=== PATIENT | male | born 1985 | race African-American/Black ===

== ENCOUNTER 2023-01-10 19:22 | Inpatient (IN) | payer OTHER ==
[2023-01-10] MEDS ORDERED: ONDANSETRON 4 MG/2 ML VIAL IV PRN (20:01)
--- NOTE | 2023-01-10 20:16 | P.HP ---
Certification for Inpatient Patient admitted to: Inpatient With expected LOS: >2 Midnights Patient will require the following post-hospital care: None Practitioner: I am a practitioner with admitting privileges, knowledge of patient current condition, hospital course, and medical plan of care. Services: Services provided to patient in accordance with Admission requirements found in Title 42 Section 412.3 of the Code of Federal Regulations Patient History Date of Service: 01/10/23 Reason for admission: Sacral osteomyelitis/ulceration History of Present Illness: 37-year-old male with history of paraplegia secondary to ruptured abdominal aortic aneurysm 2019, CKD, hypertension, COPD who was admitted to [facility] for sacral decubitus ulceration, he was found to have suspected sacral osteomyelitis. Transfer was initiated to our facility for higher level of care. He has admitted here with plans for debridement tomorrow morning and ID consu lt. He has been on meropenem at [facility], he was admitted on 01/09/2023. - Past Medical/Surgical History -: Ruptured aortic aneurysm 2019 resulting in paraplegia -: CKD -: Hypertension -: COPD -: Cholecystectomy -: Aortic repair/stent Psychosocial/ Personal History: Patient is a resident of [facility] currently - Family History Family History: Reviewed- Non-Contributory - Social History Smoking Status: Never smoker Alcohol use: No CD- Drugs: No Caffeine use: Yes Place of Residence: Home Review of Systems Unremarkable Physical Examination - Physical Exam General: Alert, In no apparent distress, Oriented x3 HEENT: Atraumatic, PERRLA, Mucous membr. moist/pink, EOMI, Sclerae nonicteric Neck: Supple, 2+ carotid pulse no bruit, No LAD, Without JVD or thyroid abnormality Respiratory: Clear to auscultation bilaterally, Normal air movement Cardiovascular: No edema, Regular rate/rhythm, Normal S1 S2 Capillary refill: <2 Seconds Gastrointestinal: Normal bowel sounds, No tenderness Musculoskeletal: No tenderness Integumentary: Pressure ulcer (Sacral decubitus ulcerationunstageable, left gluteal pressure ulcerunstageable) Neurological: Normal gait, Normal speech, Normal strength at 5/5 x4 extr, Normal tone, Normal affect Assessment and Plan - Plan Assessment: Sacral and left gluteal decubitus ulcerations with suspected sacral osteomyelitis History of ruptured aortic aneurysm resulting in [id number] Hypertension COPD Plan: Sacral and left gluteal decubitus ulcerations with suspected sacral osteomyelitis Surgery, ID consults. N.p.o. after midnight in anticipation of debridement. Continue meropenem started on 01/09 Wound culture was growing gram-negative rods per notes at outside hospital. Wound healing consult History of ruptured aortic aneurysm resulting in [id number] Noted, at baseline Hypertension COPD Continue home medications DVT PPX: SCD Code status: Full Discharge Plan: Home Plan to discharge in: Greater than 2 days - Advance Directives Does patient have a Living Will: No Does patient have a Durable POA for Healthcare: No - Code Status/Comfort Care Code Status Assessed: Yes (Full code) Critical Care: No Time Spent Managing Pts Care (In Minutes): 55
--- OUTSIDE RECORDS SUMMARY | 2023-01-10 20:20 | XMS REPORT | Continuity of Care Document ---
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 tablet 3-24 tablet by ity o f 08:41: mouth at [place] [address] bedtime as Medical needed for Branch Insomnia. collagenase Yes Apply to Un rm 250 3-24 affected ity of unit/gram 08:41: area(s). [place]int[place] Medical Branch sennosides Yes 2{tbl} Take 2 Uni vers (SENNA 3-24 tablets by ity of ORAL) 08:41: mouth 2 [place] 54 (two) Medical times Branch daily. multivitami Yes 1{capsu Take 1 U nivers n capsule 3-24 le} capsule by ity of 08:41: mouth in [place] [address] the Medical morning. Branch carboxymeth Yes 1[drp] Place 1 U nivers ylcellulose 3-24 Drop in ity o f sodium 08:41: each eye 3 [place] ([facility]IFICIAL 54 (three) Medic al TEARS, [facility], times Branch OPHTHALMIC) daily. Both eyes acetaminoph Yes 650mg Take 2 Uni vers en 325 mg 3-24 tablets by ity of tablet 08:41: mouth [place] [address] every 8 Medical (eight) Branch hours as needed. aspirin 81 0 Yes 81mg Take 1 Unive rs mg EC 3-24 tablet by ity of tablet 08:41: mouth in [place] [address] the Medical morning. Branch ibuprofen 0 Yes 400mg Take 1 Unive rs 400 mg 3-24 tablet by ity of tablet 08:41: mouth [place] [address] every 8 Medical (eight) Branch hours. As needed Melatonin 5 Yes 2{tbl} Take 2 Un rm mg Cap 3-24 tablets by ity of 08:41: mouth at [place] [address] bedtime. Medical Branch SIMETHICONE 0 Yes 80mg Take 80 mg [facility] ORAL 3-24 by mouth ity of 08:41: every 8 [place] [address] (eight) Medical hours as Branch needed. polyethylen 0 Yes Take by Uni vers e glycol 3-24 mouth. ity of 3350 08:41: [place] (MIRALAX 54 Medical ORAL) Branch zolpidem 5 0 Yes 5mg Take 1 Unive rs mg tablet 3-24 tablet by ity o f 08:41: mouth at [place] [address] bedtime as Medical needed for Branch Insomnia. collagenase Yes Apply to Un rm 250 3-24 affected ity of unit/gram 08:41: area(s). [facility] s ointment 54 Medical Branch sennosides Yes 2{tbl} Take 2 Uni vers (SENNA 3-24 tablets by ity of ORAL) 08:41: mouth 2 [place] 54 (two) Medical times Branch daily. multivitami Yes 1{capsu Take 1 U nivers n capsule 3-24 le} capsule by ity of 08:41: mouth in [place] [address] the Medical morning. Branch carboxymeth Yes 1[drp] Place 1 U nivers ylcellulose 3-24 Drop in ity o f sodium 08:41: each eye 3 [place] ([facility] 54 (three) Medic al TEARS, [facility], times Branch OPHTHALMIC) daily. Both eyes acetaminoph Yes 650mg Take 2 Uni vers en 325 mg 3-24 tablets by ity of tablet 08:41: mouth [place] [address] every 8 Medical (eight) Branch hours as needed. aspirin 81 Yes 81mg Take 1 Unive rs mg EC 3-24 tablet by ity of tablet 08:41: mouth in [place] [address] the Medical morning. Branch ibuprofen Yes 400mg Take 1 Unive rs 400 mg 3-24 tablet by ity of tablet 08:41: mouth [place] [address] every 8 Medical (eight) Branch hours. As needed Melatonin 5 Yes 2{tbl} Take 2 Un rm mg Cap 3-24 tablets by ity of 08:41: mouth at [place] [address] bedtime. Medical Branch SIMETHICONE 0 Yes 80mg Take 80 mg [facility] ORAL 3-24 by mouth ity of 08:41: every 8 [place] [address] (eight) Medical hours as Branch needed. polyethylen Yes Take by Uni vers e glycol 3-24 mouth. ity of 3350 08:41: [place] (M[facility]ALAX 54 Medical ORAL) Branch zolpidem 5 0 Yes 5mg Take 1 Unive rs mg tablet 3-24 tablet by ity o f 08:41: mouth at [place] [address] bedtime as Medical needed for Branch Insomnia. collagenase Yes Apply to Un rm 250 3-24 affected ity of unit/gram 08:41: area(s). [facility] [place] [facility] ointment 54 Medical Branch sennosides Yes 2{tbl} Take 2 Uni vers (SENNA 3-24 tablets by ity of ORAL) 08:41: mouth 2 [place] 54 (two) Medical times Branch daily. multivitami Yes 1{capsu Take 1 U nivers n capsule 3-24 le} capsule by ity of 08:41: mouth in [place] [address] the Medical morning. Branch carboxymeth Yes 1[drp] Place 1 U nivers ylcellulose 3-24 Drop in ity o f sodium 08:41: each eye 3 [place] ([facility] 54 (three) Medic al TEARS, [facility], times Branch OPHTHALMIC) daily. Both eyes acetaminoph Yes 650mg Take 2 Uni vers en 325 mg 3-24 tablets by ity of tablet 08:41: mouth [place] [address] every 8 Medical (eight) Branch hours as needed. aspirin 81 Yes 81mg Take 1 Unive rs mg EC 3-24 tablet by ity of tablet 08:41: mouth in [place] [address] the Medical morning. Branch ibuprofen Yes 400mg Take 1 Unive rs 400 mg 3-24 tablet by ity of tablet 08:41: mouth [place] [address] every 8 Medical (eight) Branch hours. As needed Melatonin 5 Yes 2{tbl} Take 2 Un rm mg Cap 3-24 tablets by ity of 08:41: mouth at [place] [address] bedtime. Medical Branch SIMETHICONE Yes 80mg Take 80 mg [facility] ORAL 3-24 by mouth ity of 08:41: every 8 [place] [address] (eight) Medical hours as Branch needed. polyethylen Yes Take by Uni vers e glycol 3-24 mouth. ity of 3350 08:41: [place] (MIRALAX 54 Medical ORAL) Branch zolpidem 5 Yes 5mg Take 1 Unive rs mg tablet 3-24 tablet by ity o f 08:41: mouth at [place] 54 bedtime as Medical needed for Branch Insomnia. collagenase Yes Apply to Un rm 250 3-24 affected ity of unit/gram 08:41: area(s). [facility] s ointment 54 Medical Branch sennosides Yes 2{tbl} Take 2 Uni vers (SENNA 3-24 tablets by ity of ORAL) 08:41: mouth 2 [place] 54 (two) Medical times Branch daily. multivitami Yes 1{capsu Take 1 U nivers n capsule 3-24 le} capsule by ity of 08:41: mouth in [place] 54 the Medical morning. Branch carboxymeth Yes 1[drp] Place 1 U nivers ylcellulose 3-24 Drop in ity o f sodium 08:41: each eye 3 [place] ([facility]IAL 54 (three) Medic al TEARS, [facility], times Branch OPHTHALMIC) daily. Both eyes acetaminoph Yes 650mg Take 2 Uni vers en 325 mg 3-24 tablets by ity of tablet 08:41: mouth [place] [address] every 8 Medical (eight) Branch hours as needed. aspirin 81 0 Yes 81mg Take 1 Unive rs mg EC 3-24 tablet by ity of tablet 08:41: mouth in [place] [address] the Medical morning. Branch ibuprofen Yes 400mg Take 1 Unive rs 400 mg 3-24 tablet by ity of tablet 08:41: mouth [place] [address] every 8 Medical (eight) Branch hours. As needed Melatonin 5 Yes 2{tbl} Take 2 Un rm mg Cap 3-24 tablets by ity of 08:41: mouth at [place] [address] bedtime. Medical Branch SIMETHICONE Yes 80mg Take 80 mg Univers ORAL 3-24 by mouth ity of 08:41: every 8 [place] 54 (eight) Medical hours as Branch needed. polyethylen Yes Take by Uni vers e glycol 3-24 mouth. ity of 3350 08:41: [place] (MIRALAX 54 Medical ORAL) Branch zolpidem 5 0 Yes 5mg Take 1 Unive rs mg tablet 3-24 tablet by ity o f 08:41: mouth at [place] [address] bedtime as Medical needed for Branch Insomnia. collagenase Yes Apply to Un rm 250 3-24 affected ity of unit/gram 08:41: area(s). [place] ointment 54 Medical Branch sennosides Yes 2{tbl} Take 2 Uni vers (SENNA 3-24 tablets by ity of ORAL) 08:41: mouth 2 [place] 54 (two) Medical times Branch daily. multivitami Yes 1{capsu Take 1 U nivers n capsule 3-24 le} capsule by ity of 08:41: mouth in [place] [address] the Medical morning. Branch carboxymeth Yes 1[drp] Place 1 U nivers ylcellulose 3-24 Drop in ity o f sodium 08:41: each eye 3 [place] ([facility]IAL 54 (three) Medic al TEARS, [facility], times Branch OPHTHALMIC) daily. Both eyes acetaminoph Yes 650mg Take 2 Uni vers en 325 mg 3-24 tablets by ity of tablet 08:41: mouth [place] [address] every 8 Medical (eight) Branch hours as needed. aspirin 81 Yes 81mg Take 1 Unive rs mg EC 3-24 tablet by ity of tablet 08:41: mouth in [place] [address] the Medical morning. Branch ibuprofen Yes 400mg Take 1 Unive rs 400 mg 3-24 tablet by ity of tablet 08:41: mouth [place] [address] every 8 Medical (eight) Branch hours. As needed Melatonin 5 Yes 2{tbl} Take 2 Un rm mg Cap 3-24 tablets by ity of 08:41: mouth at [place] [address] bedtime. Medical Branch SIMETHICONE Yes 80mg Take 80 mg Univers ORAL 3-24 by mouth ity of 08:41: every 8 [place] [address] (eight) Medical hours as Branch needed. polyethylen Yes Take by Uni vers e glycol 3-24 mouth. ity of 3350 08:41: [place] (MIRALAX 54 Medical ORAL) Branch zolpidem 5 0 Yes 5mg Take 1 Unive rs mg tablet 3-24 tablet by ity o f 08:41: mouth at [place] [address] bedtime as Medical needed for Branch Insomnia. collagenase Yes Apply to Un rm 250 3-24 affected ity of unit/gram 08:41: area(s). [place] Medical Branch sennosides Yes 2{tbl} Take 2 Uni vers (SENNA 3-24 tablets by ity of ORAL) 08:41: mouth 2 [place] 54 (two) Medical times Branch daily. multivitami Yes 1{capsu Take 1 U nivers n capsule 3-24 le} capsule by ity of 08:41: mouth in [place] 54 the Medical morning. Branch carboxymeth Yes 1[drp] Place 1 U nivers ylcellulose 3-24 Drop in ity o f sodium 08:41: each eye 3 [place] (ARTIFICIAL 54 (three) Medic al TEARS, [facility], times Branch OPHTHALMIC) daily. Both eyes acetaminoph Yes 650mg Take 2 Uni vers en 325 mg 3-24 tablets by ity of tablet 08:41: mouth [place] every 8 Medical (eight) Branch hours as needed. aspirin 81 Yes 81mg Take 1 Unive rs mg EC 3-24 tablet by ity of tablet 08:41: mouth in [place] 54 the Medical morning. Branch ibuprofen Yes 400mg Take 1 Unive rs 400 mg 3-24 tablet by ity of tablet 08:41: mouth [place] [address] every 8 Medical (eight) Branch hours. As needed Melatonin 5 Yes 2{tbl} Take 2 Un rm mg Cap 3-24 tablets by ity of 08:41: mouth at [place] [address] bedtime. Medical Branch SIMETHICONE Yes 80mg Take 80 mg Univers ORAL 3-24 by mouth ity of 08:41: every 8 [place] [address] (eight) Medical hours as Branch needed. polyethylen Yes Take by Uni vers e glycol 3-24 mouth. ity of 3350 08:41: [place] (MIRALAX 54 Medical ORAL) Branch zolpidem 5 0 Yes 5mg Take 1 Unive rs mg tablet 3-24 tablet by ity o f 08:41: mouth at [place] [address] bedtime as Medical needed for Branch Insomnia. collagenase Yes Apply to Un rm 250 3-24 affected ity of unit/gram 08:41: area(s). [facility] s ointment 54 Medical Branch sennosides Yes 2{tbl} Take 2 Uni vers (SENNA 3-24 tablets by ity of ORAL) 08:41: mouth 2 [place] 54 (two) Medical times Branch daily. multivitami Yes 1{capsu Take 1 U nivers n capsule 3-24 le} capsule by ity of 08:41: mouth in [place] [address] the Medical morning. Branch carboxymeth Yes 1[drp] Place 1 U nivers ylcellulose 3-24 Drop in ity o f sodium 08:41: each eye 3 [place] (ARTIFICIAL 54 (three) Medic al TEARS, [facility], times Branch OPHTHALMIC) daily. Both eyes acetaminoph Yes 650mg Take 2 Uni vers en 325 mg 3-24 tablets by ity of tablet 08:41: mouth [place] [address] every 8 Medical (eight) Branch hours as needed. aspirin 81 0 Yes 81mg Take 1 Unive rs mg EC 3-24 tablet by ity of tablet 08:41: mouth in [place] [address] the Medical morning. Branch ibuprofen Yes 400mg Take 1 Unive rs 400 mg 3-24 tablet by ity of tablet 08:41: mouth [place] [address] every 8 Medical (eight) Branch hours. As needed Melatonin 5 Yes 2{tbl} Take 2 Un rm mg Cap 3-24 tablets by ity of 08:41: mouth at [place] [address] bedtime. Medical Branch SIMETHICONE Yes 80mg Take 80 mg Univers ORAL 3-24 by mouth ity of 08:41: every 8 [place] [address] (eight) Medical hours as Branch needed. polyethylen Yes Take by Uni vers e glycol 3-24 mouth. ity of 3350 08:41: [place] (MIRALAX 54 Medical ORAL) Branch zolpidem 5 0 Yes 5mg Take 1 Unive rs mg tablet 3-24 tablet by ity o f 08:41: mouth at [place] [address] bedtime as Medical needed for Branch Insomnia. collagenase Yes Apply to Un rm 250 3-24 affected ity of unit/gram 08:41: area(s). [place] Medical Branch sennosides Yes 2{tbl} Take 2 Uni vers (SENNA 3-24 tablets by ity of ORAL) 08:41: mouth 2 [place] [address] (two) Medical times Branch daily. multivitami 0 Yes 1{capsu Take 1 U nivers n capsule 3-24 le} capsule by ity of 08:41: mouth in [place] 54 the Medical morning. Branch carboxymeth Yes 1[drp] Place 1 U nivers ylcellulose 3-24 Drop in ity o f sodium 08:41: each eye 3 [place] ([facility]IAL 54 (three) Medic al TEARS, [facility], times Branch OPHTHALMIC) daily. Both eyes acetaminoph Yes 650mg Take 2 Uni vers en 325 mg 3-24 tablets by ity of tablet 08:41: mouth [place] 54 every 8 Medical (eight) Branch hours as needed. aspirin 81 Yes 81mg Take 1 Unive rs mg EC 3-24 tablet by ity of tablet 08:41: mouth in [place] 54 the Medical morning. Branch ibuprofen Yes 400mg Take 1 Unive rs 400 mg 3-24 tablet by ity of tablet 08:41: mouth [place] 54 every 8 Medical (eight) Branch hours. As needed Melatonin 5 Yes 2{tbl} Take 2 Un rm mg Cap 3-24 tablets by ity of 08:41: mouth at [place] [address] bedtime. Medical Branch SIMETHICONE Yes 80mg Take 80 mg Univers ORAL 3-24 by mouth ity of 08:41: every 8 [place] 54 (eight) Medical hours as Branch needed. polyethylen Yes Take by Uni vers e glycol 3-24 mouth. ity of 3350 08:41: [place] (MIRALAX 54 Medical ORAL) Branch zolpidem 5 Yes 5mg Take 1 Unive rs mg tablet 3-24 tablet by ity o f 08:41: mouth at [place] 54 bedtime as Medical needed for Branch Insomnia. collagenase Yes Apply to Un rm 250 3-24 affected ity of unit/gram 08:41: area(s). [place] Medical Branch sennosides Yes 2{tbl} Take 2 Uni vers (SENNA 3-17 tablets by ity of ORAL) 15:38: mouth 2 [place] 10 (two) Medical times Branch daily. multivitami Yes 1{capsu Take 1 U nivers n capsule 3-17 le} capsule by ity of 15:38: mouth [place] 10 daily. Medical Branch carboxymeth Yes 1[drp] Place 1 U nivers ylcellulose 3-17 Drop in ity o f sodium 15:38: each eye 3 [place] ([facility]IAL 10 (three) Medic al TEARS, [facility], times Branch OPHTHALMIC) daily. Both eyes acetaminoph Yes 650mg Take 650 U nivers en 3-17 mg by ity of (TYLENOL) 15:38: mouth [place] 325 mg 10 every 8 Medical tablet (eight) Branch hours as needed. aspirin 81 0 Yes 81mg Take 81 mg U nivers mg EC 3-17 by mouth ity of tablet 15:38: daily. [place] [address] Medical Branch ibuprofen Yes 400mg Take 400 Uni vers 400 mg 3-17 mg by ity of tablet 15:38: mouth [place] 10 every 8 Medical (eight) Branch hours. As needed Melatonin 5 Yes 2{tbl} Take 2 Un rm mg Cap 3-17 tablets by ity of 15:38: mouth at [place] 10 bedtime. Medical Branch SIMETHICONE Yes 80mg Take 80 mg Univers ORAL 3-17 by mouth ity of 15:38: every 8 [place] 10 (eight) Medical hours as Branch needed. polyethylen Yes Take by Uni vers e glycol 3-17 mouth. ity of 3350 15:38: [place] (MIRALAX 10 Medical ORAL) Branch sennosides Yes 2{tbl} Take 2 Uni vers (SENNA 3-17 tablets by ity of ORAL) 15:38: mouth 2 [place] 10 (two) Medical times Branch daily. multivitami Yes 1{capsu Take 1 U nivers n capsule 3-17 le} capsule by ity of 15:38: mouth [place] 10 daily. Medical Branch carboxymeth Yes 1[drp] Place 1 U nivers ylcellulose 3-17 Drop in ity o f sodium 15:38: each eye 3 [place] (ARTIFICIAL 10 (three) Medic al TEARS, C[facility], times Branch OPHTHALMIC) daily. Both eyes acetaminoph Yes 650mg Take 650 U nivers en 3-17 mg by ity of (TYLENOL) 15:38: mouth [place] 325 mg 10 every 8 Medical tablet (eight) Branch hours as needed. aspirin 81 0 Yes 81mg Take 81 mg U nivers mg EC 3-17 by mouth ity of tablet 15:38: daily. [place] 10 Medical Branch ibuprofen 0 Yes 400mg Take 400 Uni vers 400 mg 3-17 mg by ity of tablet 15:38: mouth [place] 10 every 8 Medical (eight) Branch hours. As needed Melatonin 5 Yes 2{tbl} Take 2 Un rm mg Cap 3-17 tablets by ity of 15:38: mouth at [place] 10 bedtime. Medical Branch SIMETHICONE Yes 80mg Take 80 mg Univers ORAL 3-17 by mouth ity of 15:38: every 8 [place] 10 (eight) Medical hours as Branch needed. polyethylen Yes Take by Uni vers e glycol 3-17 mouth. ity of 3350 15:38: [place] (MIRALAX 10 Medical ORAL) Branch sennosides Yes 2{tbl} Take 2 Uni vers (SENNA 3-17 tablets by ity of ORAL) 15:38: mouth 2 [place] 10 (two) Medical times Branch daily. multivitami Yes 1{capsu Take 1 U nivers n capsule 3-17 le} capsule by ity of 15:38: mouth [place] 10 daily. Medical Branch carboxymeth Yes 1[drp] Place 1 U nivers ylcellulose 3-17 Drop in ity o f sodium 15:38: each eye 3 [place] (ART[facility]IAL 10 (three) Medic al TEARS, C[facility], times Branch OPHTHALMIC) daily. Both eyes acetaminoph Yes 650mg Take 650 U nivers en 3-17 mg by ity of (TYLENOL) 15:38: mouth [place] 325 mg 10 every 8 Medical tablet (eight) Branch hours as needed. aspirin 81 0 Yes 81mg Take 81 mg U nivers mg EC 3-17 by mouth ity of tablet 15:38: daily. [place] 10 Medical Branch ibuprofen 0 Yes 400mg Take 400 Uni vers 400 mg 3-17 mg by ity of tablet 15:38: mouth [place] 10 every 8 Medical (eight) Branch hours. As needed Melatonin 5 Yes 2{tbl} Take 2 Un rm mg Cap 3-17 tablets by ity of 15:38: mouth at [place] 10 bedtime. Medical Branch SIMETHICONE Yes 80mg Take 80 mg Univers ORAL -17 by mouth ity of 15:38: every 8 [place] 10 (eight) Medical hours as Branch needed. polyethylen Yes Take by Uni vers e glycol -17 mouth. ity of 3350 15:38: [place] (MIRALAX 10 Medical ORAL) Branch magnesium 2022- No 2g 2 g, IV Univ ers sulfate in 09-09 Piggyback, it y of water 2 15:30: 16:47 Administer [place] as gram/50 mL 00 :00 over 60 Medica l (4 %) Minutes, Branch infusion 2 ONCE, 1 g dose, On Mon09/09/22 at 1030, Routine HYDROcodone 2022- No 2745 1{tbl} Take 1 U nivers -acetaminop 3-17 03-25 tablet by it y of hen (NORCO) 00:00: 04:59 mouth [place] 10-325 mg 00 :00 every 6 Medical tablet (six) Branch hours as needed for Pain (scale 7-10) for up to 7 days. Indication s: chronic pain HYDROcodone 2022-2022- No 2745 1{tbl} Take 1 U nivers -acetaminop 3-17 03-25 tablet by it y of hen (NORCO) 00:00: 04:59 mouth [place] 10-325 mg 00 :00 every 6 Medical tablet (six) Branch hours as needed for chronic pain (scale 7-10) HYDROcodone 2022-0 2022- No 2745 1{tbl} Take 1 U nivers -acetaminop 3-17 03-25 tablet by it y of hen (NORCO) 00:00: 04:59 mouth [place] 10-325 mg 00 :00 every 6 Medical tablet (six) Branch hours as needed for chronic pain (scale 7-10) HYDROcodone 2022-0 2022- No 2745 1{tbl} Take 1 U nivers -acetaminop 3-17 03-25 tablet by it y of hen (NORCO) 00:00: 04:59 mouth [place] 10-325 mg 00 :00 every 6 Medical tablet (six) Branch hours as needed for chronic pain (scale 7-10) HYDROcodone 2022-0 2022- No 2745 1{tbl} Take 1 U nivers -acetaminop 3-17 03-25 tablet by it y of hen ([employer]) 00:00: 04:59 mouth [place] 10-325 mg 00 :00 every 6 Medical tablet (six) Branch hours as needed for chronic pain (scale 7-10) HYDROcodone 2022-0 2022- No 2745 1{tbl} Take 1 U nivers -acetaminop 3-17 03-25 tablet by it y of hen ([employer]) 00:00: 04:59 mouth [place] 10-325 mg 00 :00 every 6 Medical tablet (six) Branch hours as needed for chronic pain (scale 7-10) HYDROcodone 2022-0 2022- No 2745 1{tbl} Take 1 U nivers -acetaminop 3-17 03-25 tablet by it y of hen ([employer]) 00:00: 04:59 mouth [place] 10-325 mg 00 :00 every 6 Medical tablet (six) Branch hours as needed for chronic pain (scale 7-10) HYDROcodone 2022-0 2022- No 2745 1{tbl} Take 1 U nivers -acetaminop 3-17 03-25 tablet by it y of hen ([employer]) 00:00: 04:59 mouth [place] 10-325 mg 00 :00 every 6 Medical tablet (six) Branch hours as needed for chronic pain (scale 7-10) HYDROcodone 2022-0 2022- No 2745 1{tbl} Take 1 U nivers -acetaminop 3-17 03-25 tablet by it y of hen ([employer]) 00:00: 04:59 mouth [place] 10-325 mg 00 :00 every 6 Medical tablet (six) Branch hours as needed for chronic pain (scale 7-10) lactated 2022- No 1000mL at 50 Unive rs ringers IV 09-08 mL/hr, ity of infusion 16:30: 16:29 1,000 mL, [place] as 1,000 mL 00 :00 IV Medical Infusion, Branch CONTINUOUS , Starting on [place] 09/08/22 at 1130, Until Mon09/09/22 at 1129, Routine magnesium 2022- No 2g 2 g, IV Univ ers sulfate in 09-08-16 Piggyback, it y of water 2 15:30: 17:33 Administer [place] as gram/50 mL 00 :00 over 60 Medica l (4 %) Minutes, Branch infusion 2 ONCE, 1 g dose, On Mon09/08/22 at 1030, Routine enoxaparin 2022-0 Yes 40mg 40 mg, Unive rs (LOVENOX) 3-16 Subcutaneo ity of injection 14:00: [place], DAILY, [place] 40 mg 00 First dose Medical (after [place] last modificati on) on Mon09/08/22 at 0900, Until Discontinu ed, Routine SERTraline 2022-0 Yes 100mg 100 mg, Uni vers (ZOLOFT) 3-16 Oral, QHS, ity o f tablet 100 02:00: First dose [place] mg 00 on [facility] 09/07/22 at Branch 2100, Until Discontinu ed, Routine melatonin 2022-0 Yes 3mg 3 mg, Univers (MELATIN) 3-16 Oral, QHS, ity of tablet 3 mg 02:00: First dose [place] 00 on [facility] 09/07/22 at Branch 2100, Until Discontinu ed terazosin 2022-0 Yes 1mg 1 mg, Univers (HYTRIN) 3-15 Oral, QPM, ity o f capsule 1 22:00: First dose [place] mg 00 on [facility] 09/07/22 at Branch 1700, Until Discontinu ed, Routine lactated 3-0 2023- No 1000mL at 100 [facility] ers ringers IV 09-07-16 mL/hr, ity of infusion 19:45: 16:22 1,000 mL, [place] as 1,000 mL 00 :38 IV Medical Infusion, Branch CONTINUOUS , Starting on Mon09/07/22 at 1445, Until [place] 09/08/22 at 1122, Routine morpHINE (4 2022-0 Yes 2mg 2 mg, Slow Univers mg/mL) 3-15 IV Push, ity of injection 2 18:42: Q4HPRN, [place] mg 48 Starting Medical on [facility] 09/07/22 at 1342, Until Discontinu ed, Routine, Pain (scale 7-10) polyethylen 2022-0 Yes 17g 17 g, Unive rs e glycol 3-15 Oral, ity of 3350 powder 14:00: DAILY, [place] 17 g 00 First dose Medical on Mon09/07/22 at 0900, Until Discontinu ed NIFEdipine 0 Yes 60mg 60 mg, Unive rs ER tablet 3-15 Oral, ity of 60 mg 14:00: DAILY, First dose Medical on Mon09/07/22 at 0900, Until Discontinu ed aspirin EC 2022-0 Yes 81mg 81 mg, Unive rs tablet 81 3-15 Oral, ity of mg 14:00: DAILY, First dose Medical on Mon09/07/22 at 0900, Until Discontinu ed, Routine enoxaparin 0 2022- No 30mg 30 mg, Univ ers (LOVENOX) 15 03-15 Subcutaneo ity of injection 14:00: 15:02 us, DAILY, [place] 30 mg 00 :47 First dose Medical on Mon09/07/22 at 0900, Until Discontinu ed, Routine sennosides 0 Yes 8.6mg 8.6 mg, Uni vers (SENOKOT) 3-15 Oral, BID, ity of tablet 8.6 13:00: First dose [place] mg 00 mon09/07/22 at Branch 0800, Until Discontinu ed labetaloL 0 Yes 400mg 400 mg, Univ ers (NORMODYNE) 3-15 Oral, ity of tablet 400 13:00: Q12H, mg First dose Medical on Mon09/07/22 at 0800, Until Discontinu ed, Routine gabapentin 0 Yes 300mg 300 mg, Uni vers (NEURONTIN) 3-15 Oral, TID, it y of capsule 300 13:00: First dose [place] mg 00 on Mon [facility] 09/07/22 at Branch 0800, Until Discontinu ed, Routine sodium 2022-0 202- No 150meq IV Univers bicarbonate 15 -15 Infusion, it y of 150 mEq in 12:00: 22:07 at 100 [place] D5W 1,000 00 :00 mL/hr, 150 Medi nic mL IV mEq, ONCE, Branch infusion 1 dose, On Mon09/07/22 at 0700, Routine ondansetron 2023-0 Yes 4mg 4 mg, Slow Univers (ZOFRAN 3-15 IV Push, ity of (PF)) 10:58: Q6HPRN, [place] injection 4 13 Starting Medi nic mg on Mon Branch 09/07/22 at 0558, Until Discontinu ed, Routine, Nausea and Vomiting (N/V) HYDROcodone 0 2022- No 1{tbl} 1 tablet, Univers -acetaminop 3-15 03-15 Oral, ity of hen (NORCO) 10:58: 18:43 Q6HPRN, [place] 10-325 mg 09 :15 Starting Medica l tablet 1 on Mon Branch tablet 09/07/22 at 0558, Until 09/07/22 at 1343, Routine, Pain (scale 7-10) acetaminoph Yes 650mg 650 mg, Un rm en 3-15 Oral, ity of (TYLENOL) 10:57: Q6HPRN, [place] tablet 650 57 Starting Medic al mg on Mon Branch 09/07/22 at 0557, Until Discontinu ed, Routine, Pain (scale 1-3) simethicone Yes 80mg 80 mg, Univ ers (GAS RELIEF 3-15 Oral, ity of (SIMETHICON 10:55: Q8HPRN, Ramon as E)) 54 Starting Medical chewable on Mon Branch tablet 80 09/07/22 at mg 0555, Until Discontinu ed, Gas nitrofurant 2021-06- No Complicated 100mg Q.5D Take 1 [facility] oin 0-06 10-19 UTI capsule by [facility] mono/m-[place] 00:00: 23:59 (urinary mouth 2 tals 00 :00 tract times (MACROBID) infection) daily for 100 mg 7 days capsule nitrofurant 2021-06- No Complicated 100mg Q.5D Take 1 [facility] oin 0-06 10-19 UTI capsule by [facility] mono/m-[place] 00:00: 23:59 (urinary mouth 2 tals 00 :00 tract times (MACROBID) infection) daily for 100 mg 7 days capsule cefpodoxime 2021-06- No Complicated 200mg Q.5D Take 1 [facility] (VANTIN) 0-04 10-14 UTI tablet by [facility] 200 mg 00:00: 23:59 (urinary mouth 2 tablet 00 :00 tract times infection) daily for 10 days cefpodoxime 2021-06- No Complicated 200mg Q.5D Take 1 [facility] (VANTIN) 0-04 10-14 UTI tablet by [facility] 200 mg 00:00: 23:59 (urinary mouth 2 tablet 00 :00 tract times infection) daily for 10 days ciprofloxac 2021- No 500mg Q.5D Take [address] [facility] [address] [facility] 03-04 [facility] (CIPRO) 500 00:00: 23:59 (500 mg Me dical MG tablet 00 :00 total) by Cente r mouth 2 (two) times daily for 5 days. ciprofloxac 2021- No 500mg Q.5D Take [address] [facility] HCl 03-04 [facility] (CIPRO) 500 00:00: 23:59 (500 mg Me dical MG tablet 00 :00 total) by Cente r mouth 2 (two) times daily for 5 days. ciprofloxac 2021- No 500mg Q.5D Take [address] [facility] HCl 03-04 [facility] (CIPRO) 500 00:00: 23:59 (500 mg Me dical MG tablet 00 :00 total) by Cente r mouth 2 (two) times daily for 5 days. ciprofloxac 2021- No 500mg Q.5D Take [address] [facility] HCl 03-04 [facility] (CIPRO) 500 00:00: 23:59 (500 mg Me dical MG tablet 00 :00 total) by Cente r mouth 2 (two) times daily for 5 days. ciprofloxac 0 2021- No 500mg Q.5D Take [address] [facility] HCl 03-04 [facility] (CIPRO) 500 00:00: 23:59 (500 mg Me dical MG tablet 00 :00 total) by Cente r mouth 2 (two) times daily for 5 days. ciprofloxac 2021- No 500mg Q.5D Take [address] [facility] HCl 03-04 tablet [facility] (CIPRO) 500 00:00: 23:59 (500 mg Me dical MG tablet 00 :00 total) by Cente r mouth 2 (two) times daily for 5 days. ciprofloxac 2021- No 500mg Q.5D Take [address] [facility] HCl 03-04 [facility] (CIPRO) 500 00:00: 23:59 (500 mg Me dical MG tablet 00 :00 total) by Cente r mouth 2 (two) times daily for 5 days. ciprofloxac 0 2021- No 500mg Q.5D Take [address] [facility] HCl 03-04 [facility] (CIPRO) 500 00:00: 23:59 (500 mg Me dical MG tablet 00 :00 total) by Cente r mouth 2 (two) times daily for 5 days. NIFEdipine Yes Hypertensio 60mg QD Take 1 [facility] (PROCARDIA 7-11 n, tablet by [facility] XL) 60 mg 00:00: unspecified mouth 24 hr 00 type daily extended release tablet metoprolol Yes Hypertensio 50mg Take 1 [facility] succinate 7-11 n, tablet by [facility]alt [facility] (TOPROL XL) 00:00: unspecified mouth 50 mg 00 type every 12 extended hours release tablet NIFEdipine 0 Yes Hypertensio 60mg QD Take 1 [facility] (PROCARDIA 7-11 n, tablet by [facility]al th XL) 60 mg 00:00: unspecified mouth 24 hr 00 type daily extended release tablet metoprolol 0 Yes Hypertensio 50mg Take 1 [facility] succinate 7-11 n, tablet by [facility]alt [facility] (TOPROL XL) 00:00: unspecified mouth 50 mg 00 type every 12 extended hours release tablet NIFEdipine 0 Yes Hypertensio 60mg QD Take 1 [facility] (PROCARDIA 7-11 n, tablet by [facility]al th XL) 60 mg 00:00: unspecified mouth 24 hr 00 type daily extended release tablet metoprolol 0 Yes Hypertensio 50mg Take 1 [facility] succinate 7-11 n, tablet by [facility]alt [facility] (TOPROL XL) 00:00: unspecified mouth 50 mg 00 type every 12 extended hours release tablet naproxen 0 2021- No Fall, 500mg Q.5D Take 1 [facility] is (NAPROSYN) 01-03 07-25 initial tablet by [facility] 500 mg 00:00: 23:59 encounter mouth 2 tablet 00 :00 times daily (with meals) for 14 days naproxen 2021-2021- No Fall, 500mg Q.5D Take 1 [facility] is (NAPROSYN) 01-03 initial tablet by Health 500 mg 00:00: 23:59 encounter mouth 2 tablet 00 :00 times daily (with meals) for 14 days naproxen 2021-2021- No Fall, 500mg Q.5D Take 1 [facility] is (NAPROSYN) 01-03 initial tablet by Health 500 mg 00:00: 23:59 encounter mouth 2 tablet 00 :00 times daily (with meals) for 14 days methocarbam 2021-2021- No Fall, 750mg Take 1 H arris oL 01-03 initial tablet by [facility] (ROBAXIN-75 00:00: 23:59 encounter mouth 3 0) 750 mg 00 :00 times tablet daily as needed for up to 7 days for Pain methocarbam 2021-2021- No Fall, 750mg Take 1 H arris oL 01-03 initial tablet by [facility] (ROBAXIN-75 00:00: 23:59 encounter mouth 3 0) 750 mg 00 :00 times tablet daily as needed for up to 7 days for Pain methocarbam 2021-2021- No Fall, 750mg Take 1 H arris oL 01-03 initial tablet by [facility] (ROBAXIN-75 00:00: 23:59 encounter mouth 3 0) 750 mg 00 :00 times tablet daily as needed for up to 7 days for Pain metoprolol 2021-2021- 25mg Q.5D Take [address] [facility] tartrate 2-28 05-29 tablet (25 [facility] (LOPRESSOR) 00:00: 23:59 mg total) Medical 25 MG 00 :00 by mouth 2 Center tablet (two) times daily for 90 days. metoprolol 2021-2021- 25mg Q.5D Take [address] [facility] tartrate 2-28 05-29 tablet (25 [facility] (LOPRESSOR) 00:00: 23:59 mg total) Medical 25 MG 00 :00 by mouth 2 Center tablet (two) times daily for 90 days. metoprolol 2021- 25mg Q.5D Take [address] [facility] tartrate 2-28 05-29 tablet (25 [facility] (LOPRESSOR) 00:00: 23:59 mg total) Medical 25 MG 00 :00 by mouth 2 Center tablet (two) times daily for 90 days. metoprolol 2021-0 2022- No 25mg Q.5D Take [address] [facility] tartrate 2-28 -29 tablet (25 [facility] (LOPRESSOR) 00:00: 23:59 mg total) Medical 25 MG 00 :00 by mouth 2 Center tablet (two) times daily for 90 days. metoprolol 2021-0 2022- No 25mg Q.5D Take [address] [facility] tartrate 2-28 -29 tablet (25 [facility] (LOPRESSOR) 00:00: 23:59 mg total) Medical 25 MG 00 :00 by mouth 2 Center tablet (two) times daily for 90 days. metoprolol 2021-0 2022- No 25mg Q.5D Take [address] [facility] tartrate 2-25 -28 tablet (25 [facility] (LOPRESSOR) 00:00: 00:00 mg total) Medical 25 MG 00 :00 by mouth 2 Center tablet (two) times daily for 90 days. metoprolol 2021-0 2- No 25mg Q.5D Take [address] [facility] tartrate 2-25 -28 tablet (25 [facility] (LOPRESSOR) 00:00: 00:00 mg total) Medical 25 MG 00 :00 by mouth 2 Center tablet (two) times daily for 90 days. metoprolol 2021-0 2022- No 25mg Q.5D Take [address] [facility] tartrate 2-25 -28 tablet (25 [facility] (LOPRESSOR) 00:00: 00:00 mg total) Medical 25 MG 00 :00 by mouth 2 Center tablet (two) times daily for 90 days. aspirin 81 2-0 Yes 81mg Take 81 mg U nivers mg EC 1-03 by mouth ity of tablet 17:13: daily. [address] Branch ibuprofen 2-0 Yes 400mg Take 400 Uni vers 400 mg 1-03 mg by ity of tablet 17:13: mouth [place] [address] every 8 Medical (eight) Branch hours. As needed aspirin 81 2022-0 Yes 81mg Take 81 mg U nivers mg EC 1-03 by mouth ity of tablet 17:13: daily. [address] Branch ibuprofen 2022-0 Yes 400mg Take 400 Uni vers 400 mg 1-03 mg by ity of tablet 17:13: mouth [place] 38 every 8 Medical (eight) Branch hours. As needed aspirin 81 0 Yes 81mg Take 81 mg U nivers mg EC 1-03 by mouth ity of tablet 17:13: daily. [address] Branch ibuprofen 0 Yes 400mg Take 400 Uni vers 400 mg 1-03 mg by ity of tablet 17:13: mouth [place] 38 every 8 Medical (eight) Branch hours. As needed aspirin 81 0 Yes 81mg Take 81 mg U nivers mg EC 1-03 by mouth ity of tablet 17:13: daily. [place] [address] Medical Branch ibuprofen 0 Yes 400mg Take 400 Uni vers 400 mg 1-03 mg by ity of tablet 17:13: mouth [place] 38 every 8 Medical (eight) Branch hours. As needed aspirin 81 0 Yes 81mg Take 81 mg U nivers mg EC 1-03 by mouth ity of tablet 17:13: daily. [place] [address] Medical Branch ibuprofen Yes 400mg Take 400 Uni vers 400 mg 1-03 mg by ity of tablet 17:13: mouth [place] 38 every 8 Medical (eight) Branch hours. As needed sennosides Yes 2{tbl} Take 2 Uni vers (SENNA 1-03 tablets by ity of ORAL) 17:13: mouth 2 [place] 37 (two) Medical times Branch daily. multivitami Yes 1{capsu Take 1 U nivers n capsule 1-03 le} capsule by ity of 17:13: mouth [place] 37 daily. Medical Branch carboxymeth Yes 1[drp] Place 1 U nivers ylcellulose 1-03 Drop in ity o f sodium 17:13: each eye 3 [place] (ARTIFICIAL 37 (three) Medic al TEARS, [facility], times Branch OPHTHALMIC) daily. Both eyes acetaminoph Yes 650mg Take 650 U nivers en 1-03 mg by ity of (TYLENOL) 17:13: mouth [place] 325 mg 37 every 8 Medical tablet (eight) Branch hours as needed. Melatonin 5 Yes 2{tbl} Take 2 Un rm mg Cap 1-03 tablets by ity of 17:13: mouth at [place] 37 bedtime. Medical Branch SIMETHICONE Yes 80mg Take 80 mg [facility] ORAL 1-03 by mouth ity of 17:13: every 8 [place] 37 (eight) Medical hours as Branch needed. polyethylen Yes Take by Uni vers e glycol 1-03 mouth. ity of 3350 17:13: [place] (MIRALAX 37 Medical ORAL) Branch sennosides Yes 2{tbl} Take 2 Uni vers (SENNA 1-03 tablets by ity of ORAL) 17:13: mouth 2 [place] 37 (two) Medical times Branch daily. multivitami Yes 1{capsu Take 1 U nivers n capsule 1-03 le} capsule by ity of 17:13: mouth [place] 37 daily. Medical Branch carboxymeth Yes 1[drp] Place 1 U nivers ylcellulose 1-03 Drop in ity o f sodium 17:13: each eye 3 [place] (ARTIFICIAL 37 (three) Medic al TEARS, [facility], times Branch OPHTHALMIC) daily. Both eyes acetaminoph Yes 650mg Take 650 U nivers en 1-03 mg by ity of (TYLENOL) 17:13: mouth [place] 325 mg 37 every 8 Medical tablet (eight) Branch hours as needed. Melatonin 5 Yes 2{tbl} Take 2 Un rm mg Cap 1-03 tablets by ity of 17:13: mouth at [place] 37 bedtime. Medical Branch SIMETHICONE Yes 80mg Take 80 mg [facility] ORAL 1-03 by mouth ity of 17:13: every 8 [place] 37 (eight) Medical hours as Branch needed. polyethylen Yes Take by Uni vers e glycol 1-03 mouth. ity of 3350 17:13: [place] (MIRALAX 37 Medical ORAL) Branch sennosides Yes 2{tbl} Take 2 Uni vers (SENNA 1-03 tablets by ity of ORAL) 17:13: mouth 2 [place] 37 (two) Medical times Branch daily. multivitami Yes 1{capsu Take 1 U nivers n capsule 1-03 le} capsule by ity of 17:13: mouth [place] 37 daily. Medical Branch carboxymeth Yes 1[drp] Place 1 U nivers ylcellulose 1-03 Drop in ity o f sodium 17:13: each eye 3 [place] (ARTIFICIAL 37 (three) Medic al TEARS, [facility], times Branch OPHTHALMIC) daily. Both eyes acetaminoph Yes 650mg Take 650 U nivers en 1-03 mg by ity of (TYLENOL) 17:13: mouth [place] 325 mg 37 every 8 Medical tablet (eight) Branch hours as needed. Melatonin 5 Yes 2{tbl} Take 2 Un rm mg Cap 1-03 tablets by ity of 17:13: mouth at [place] 37 bedtime. Medical Branch SIMETHICONE Yes 80mg Take 80 mg [facility] ORAL 1-03 by mouth ity of 17:13: every 8 [place] 37 (eight) Medical hours as Branch needed. polyethylen Yes Take by Uni vers e glycol 1-03 mouth. ity of 3350 17:13: [place] (MIRALAX 37 Medical ORAL) Branch sennosides Yes 2{tbl} Take 2 Uni vers (SENNA 1-03 tablets by ity of ORAL) 17:13: mouth 2 [place] 37 (two) Medical times Branch daily. multivitami Yes 1{capsu Take 1 U nivers n capsule 1-03 le} capsule by ity of 17:13: mouth [place] 37 daily. Medical Branch carboxymeth Yes 1[drp] Place 1 U nivers ylcellulose 1-03 Drop in ity o f sodium 17:13: each eye 3 [place] (ARTIFICIAL 37 (three) Medic al TEARS, [facility], times Branch OPHTHALMIC) daily. Both eyes acetaminoph Yes 650mg Take 650 U nivers en 1-03 mg by ity of (TYLENOL) 17:13: mouth [place] 325 mg 37 every 8 Medical tablet (eight) Branch hours as needed. Melatonin 5 Yes 2{tbl} Take 2 Un rm mg Cap 1-03 tablets by ity of 17:13: mouth at [place] 37 bedtime. Medical Branch SIMETHICONE Yes 80mg Take 80 mg [facility] ORAL 1-03 by mouth ity of 17:13: every 8 [place] 37 (eight) Medical hours as Branch needed. polyethylen Yes Take by Uni vers e glycol 1-03 mouth. ity of 3350 17:13: [place] (MIRALAX 37 Medical ORAL) Branch sennosides Yes 2{tbl} Take 2 Uni vers (SENNA 1-03 tablets by ity of ORAL) 17:13: mouth 2 [place] 37 (two) Medical times Branch daily. multivitami Yes 1{capsu Take 1 U nivers n capsule 1-03 le} capsule by ity of 17:13: mouth [place] 37 daily. Medical Branch carboxymeth Yes 1[drp] Place 1 U nivers ylcellulose 1-03 Drop in ity o f sodium 17:13: each eye 3 [place] (ARTIFICIAL 37 (three) Medic al TEARS, [facility], times Branch OPHTHALMIC) daily. Both eyes acetaminoph Yes 650mg Take 650 U nivers en 1-03 mg by ity of (TYLENOL) 17:13: mouth [place] 325 mg 37 every 8 Medical tablet (eight) Branch hours as needed. Melatonin 5 Yes 2{tbl} Take 2 Un rm mg Cap 1-03 tablets by ity of 17:13: mouth at [place] bedtime. Medical Branch SIMETHICONE Yes 80mg Take 80 mg [facility] ORAL 1-03 by mouth ity of 17:13: every 8 [place] 37 (eight) Medical hours as Branch needed. polyethylen Yes Take by Uni vers e glycol 1-03 mouth. ity of 3350 17:13: [place] (MIRALAX 37 Medical ORAL) Branch SERTraline 2020-06 Yes Univers 100 mg 2-10 ity of tablet 00:00: [place] 00 Medical Branch terazosin 1 2020-06 Yes Univer s mg capsule 2-10 ity of 00:00: [place] [address] Medical Branch SERTraline 2020-06 Yes Univers 100 mg 2-10 ity of tablet 00:00: [address] Branch terazosin 1 2020-06 Yes Univer s mg capsule 2-10 ity of 00:00: [place] [facility] Branch SERTraline 2020-06 Yes Univers 100 mg 2-10 ity of tablet 00:00: [place] [address] Medical Branch terazosin 1 2020-06 Yes Univer s mg capsule 2-10 ity of 00:00: [place] [address] Medical Branch SERTraline 2020-06 Yes Univers 100 mg 2-10 ity of tablet 00:00: [place] [facility] terazosin 1 2020-06 Yes Univer s mg capsule 2-10 ity of 00:00: [place] [facility] SERTraline 2020-06 Yes Univers 100 mg 2-10 ity of tablet 00:00: [place] [facility] terazosin 1 2020-06 Yes Univer s mg capsule 2-10 ity of 00:00: [place] [facility] Branch SERTraline 2020-06 Yes Univers 100 mg 2-10 ity of tablet 00:00: [place] [facility] terazosin 1 2020-06 Yes Univer s mg capsule 2-10 ity of 00:00: [place] [facility] SERTraline 2020-06 Yes [facility] 100 mg 2-10 ity of tablet 00:00: [place] [facility] terazosin 1 2020-06 Yes Univer s mg capsule 2-10 ity of 00:00: [place] [facility] SERTraline 2020-06 Yes Univers 100 mg 2-10 ity of tablet 00:00: [place] [facility] terazosin 1 2020-06 Yes Univer s mg capsule 2-10 ity of 00:00: [place] [address] Medical Branch SERTraline 2020-06 Yes Univers 100 mg 2-10 ity of tablet 00:00: [place] [facility] terazosin 1 2020-06 Yes Univer s mg capsule 2-10 ity of 00:00: [place] [facility] SERTraline 2020-06 Yes Univers 100 mg 2-10 ity of tablet 00:00: [place] [facility] terazosin 1 2020-06 Yes Univer s mg capsule 2-10 ity of 00:00: [place] [facility] SERTraline 2020-06 Yes Univers 100 mg 2-10 ity of tablet 00:00: [place] [facility] terazosin 1 2020-06 Yes Univer s mg capsule 2-10 ity of 00:00: [place] [facility] SERTraline 2020-06 Yes Univers 100 mg 2-10 ity of tablet 00:00: [place] [facility] terazosin 1 2020-06 Yes Univer s mg capsule 2-10 ity of 00:00: [place] [address] Medical Branch SERTraline 2020-06 Yes Univers 100 mg 2-10 ity of tablet 00:00: [place] [address] Medical Branch terazosin 1 2020-06 Yes Univer s mg capsule 2-10 ity of 00:00: [place] [facility] SERTraline 2020-06 Yes Univers 100 mg 2-10 ity of tablet 00:00: [place] [facility] terazosin 1 2020-06 Yes Univer s mg capsule 2-10 ity of 00:00: [place] [facility] SERTraline 2020-06 Yes Univers 100 mg 2-10 ity of tablet 00:00: [place] [facility] terazosin 1 2020-06 Yes Univer s mg capsule 2-10 ity of 00:00: [place] [facility] SERTraline 2020-06 Yes Univers 100 mg 2-10 ity of tablet 00:00: [place] [facility] terazosin 1 2020-06 Yes Univer s mg capsule 2-10 ity of 00:00: [place] [facility] SERTraline 2020-06 Yes Univers 100 mg 2-10 ity of tablet 00:00: [place] [facility] terazosin 1 2020-06 Yes Univer s mg capsule 2-10 ity of 00:00: [place] [facility] SERTraline 2020-06 Yes Univers 100 mg 2-10 ity of tablet 00:00: [place] [facility] terazosin 1 2020-06 Yes Univer s mg capsule 2-10 ity of 00:00: [place] [facility] SERTraline 2020-06 Yes Univers 100 mg 2-10 ity of tablet 00:00: [place] [address] Medical Branch terazosin 1 2020-06 Yes Univer s mg capsule 2-10 ity of 00:00: [place] [facility] SERTraline 2020-06 Yes Univers 100 mg 2-10 ity of tablet 00:00: [place] [facility] terazosin 1 2020-06 Yes Univer s mg capsule 2-10 ity of 00:00: [place] [address] Medical Branch SERTraline 2020-06 Yes Univers 100 mg 2-10 ity of tablet 00:00: [place] [address] Medical Branch terazosin 1 2020-06 Yes Univer s mg capsule 2-10 ity of 00:00: [place] [address] Medical Branch HYDROcodone 2020-06 Yes Univer s -acetaminop 2-09 ity of hen 10-325 00:00: [place] mg tablet Medical Branch HYDROcodone 2020-06 Yes Univer s -acetaminop 2-09 ity of hen 10-325 00:00: [place] mg tablet 00 Medical Branch HYDROcodone 2020-06 Yes Univer s -acetaminop 2-09 ity of hen 10-325 00:00: [place] mg tablet 00 Medical Branch HYDROcodone 2020-06 Yes Univer s -acetaminop 2-09 ity of hen 10-325 00:00: [place] mg tablet 00 Medical Branch HYDROcodone 2020-06 Yes Univer s -acetaminop 2-09 ity of hen 10-325 00:00: [place] mg tablet 00 Medical Branch HYDROcodone 2020-06 Yes Univer s -acetaminop 2-09 ity of hen 10-325 00:00: [place] mg tablet 00 Medical Branch HYDROcodone 2020-06 Yes Univer s -acetaminop 2-09 ity of hen 10-325 00:00: [place] mg tablet Medical Branch HYDROcodone 2020-06 Yes Univer s -acetaminop 2-09 ity of hen 10-325 00:00: [place] mg tablet 00 Medical Branch HYDROcodone 2020-06 Yes Univer s -acetaminop 2-09 ity of hen 10-325 00:00: [place] mg tablet 00 Medical Branch HYDROcodone 2020-06 Yes Univer s -acetaminop 2-09 ity of hen 10-325 00:00: [place] mg tablet 00 Medical Branch HYDROcodone 2020-06 Yes Univer s -acetaminop 2-09 ity of hen 10-325 00:00: [place] mg tablet Medical Branch HYDROcodone 2020-06 Yes Univer s -acetaminop 2-09 ity of hen 10-325 00:00: [place] mg tablet 00 Medical Branch HYDROcodone 2020-06 Yes Univer s -acetaminop 2-09 ity of hen 10-325 00:00: [place] mg tablet 00 Medical Branch HYDROcodone 2020-06 Yes Univer s -acetaminop 2-09 ity of hen 10-325 00:00: [place] mg tablet 00 Medical Branch HYDROcodone 2020-06 Yes Univer s -acetaminop 2-09 ity of hen 10-325 00:00: [place] mg tablet 00 Medical Branch HYDROcodone 2020-06 Yes Univer s -acetaminop 2-09 ity of hen 10-325 00:00: [place] mg tablet 00 Medical Branch HYDROcodone 2020-06 Yes Univer s -acetaminop 2-09 ity of hen 10-325 00:00: [place] mg tablet 00 Medical Branch HYDROcodone 2020-06 Yes Univer s -acetaminop 2-09 ity of hen 10-325 00:00: [place] mg tablet 00 Medical Branch HYDROcodone 2020-06 Yes Univer s -acetaminop 2-09 ity of hen 10-325 00:00: [place] mg tablet 00 Medical Branch HYDROcodone 2020-06 Yes Univer s -acetaminop 2-09 ity of hen 10-325 00:00: [place] mg tablet 00 Medical Branch HYDROcodone 2020-06 Yes Univer s -acetaminop 2-09 ity of hen 10-325 00:00: [place] mg tablet 00 Medical Branch labetaloL 2020-06 Yes 400mg Take 400 Uni vers 100 mg 2-08 mg by ity of tablet 00:00: mouth [place] 00 every 12 Medical (twelve) Branch hours. labetaloL 2020-06 Yes 400mg Take 400 Uni vers 100 mg 2-08 mg by ity of tablet 00:00: mouth [place] 00 every 12 Medical (twelve) Branch hours. labetaloL 2020-06 Yes 400mg Take 400 Uni vers 100 mg 2-08 mg by ity of tablet 00:00: mouth [place] 00 every 12 Medical (twelve) Branch hours. labetaloL 2020-06 Yes 400mg Take 400 Uni vers 100 mg 2-08 mg by ity of tablet 00:00: mouth [place] 00 every 12 Medical (twelve) Branch hours. labetaloL 2020-06 Yes 400mg Take 400 Uni vers 100 mg 2-08 mg by ity of tablet 00:00: mouth [place] 00 every 12 Medical (twelve) Branch hours. labetaloL 2020-06 Yes 400mg Take 400 Uni vers 100 mg 2-08 mg by ity of tablet 00:00: mouth [place] 00 every 12 Medical (twelve) Branch hours. labetaloL 2020-06 Yes 400mg Take 400 Uni vers 100 mg 2-08 mg by ity of tablet 00:00: mouth [place] 00 every 12 Medical (twelve) Branch hours. labetaloL 2020-06 Yes 400mg Take 400 Uni vers 100 mg 2-08 mg by ity of tablet 00:00: mouth [place] 00 every 12 Medical (twelve) Branch hours. labetaloL 2020- Yes 400mg Take 400 Uni vers 100 mg 2-08 mg by ity of tablet 00:00: mouth [place] 00 every 12 Medical (twelve) Branch hours. labetaloL 2020-1 Yes 400mg Take 400 Uni vers 100 mg 2-08 mg by ity of tablet 00:00: mouth [place] 00 every 12 Medical (twelve) Branch hours. labetaloL 2020-1 Yes 400mg Take 400 Uni vers 100 mg 2-08 mg by ity of tablet 00:00: mouth [place] 00 every 12 Medical (twelve) Branch hours. labetaloL 2020-1 Yes 400mg Take 400 Uni vers 100 mg 2-08 mg by ity of tablet 00:00: mouth [place] 00 every 12 Medical (twelve) Branch hours. labetaloL 2020-1 Yes 400mg Take 400 Uni vers 100 mg 2-08 mg by ity of tablet 00:00: mouth [place] 00 every 12 Medical (twelve) Branch hours. labetaloL 2020- Yes 400mg Take 400 Uni vers 100 mg 2-08 mg by ity of tablet 00:00: mouth [place] 00 every 12 Medical (twelve) Branch hours. labetaloL 2020-06 Yes 400mg Take 400 Uni vers 100 mg 2-08 mg by ity of tablet 00:00: mouth [place] 00 every 12 Medical (twelve) Branch hours. labetaloL 2020- Yes 400mg Take 400 Uni vers 100 mg 2-08 mg by ity of tablet 00:00: mouth [place] 00 every 12 Medical (twelve) Branch hours. labetaloL 2020- Yes 400mg Take 400 Uni vers 100 mg 2-08 mg by ity of tablet 00:00: mouth [place] 00 every 12 Medical (twelve) Branch hours. labetaloL 2020-1 Yes 400mg Take 400 Uni vers 100 mg 2-08 mg by ity of tablet 00:00: mouth [place] 00 every 12 Medical (twelve) Branch hours. labetaloL 2020-1 Yes 400mg Take 400 Uni vers 100 mg 2-08 mg by ity of tablet 00:00: mouth [place] 00 every 12 Medical (twelve) Branch hours. labetaloL 2020-1 Yes 400mg Take 400 Uni vers 100 mg 2-08 mg by ity of tablet 00:00: mouth [place] 00 every 12 Medical (twelve) Branch hours. labetaloL 2021-1 Yes 400mg Take 400 Uni vers 100 mg 2-08 mg by ity of tablet 00:00: mouth [place] [address] every 12 Medical (twelve) Branch hours. clindamycin 2020-06 Yes Univer s 300 mg 1-23 ity of capsule 00:00: [place] [address] Medical Branch clindamycin 2020-06 Yes Univer s 300 mg 1-23 ity of capsule 00:00: [place] [address] Medical Branch clindamycin 2020-06 Yes Univer s 300 mg 1-23 ity of capsule 00:00: [place] [address] Medical Branch clindamycin 2020-06 Yes Univer s 300 mg 1-23 ity of capsule 00:00: [place] [address] Medical Branch clindamycin 2020-06 Yes Univer s 300 mg 1-23 ity of capsule 00:00: [place] [address] Medical Branch clindamycin 2020-06 Yes Univer s 300 mg 1-23 ity of capsule 00:00: [place] [address] Medical Branch clindamycin 2020-06 Yes Univer s 300 mg 1-23 ity of capsule 00:00: [place] [address] Medical Branch clindamycin 2020-06 Yes Univer s 300 mg 1-23 ity of capsule 00:00: [place] [address] Medical Branch clindamycin 2020-06 Yes Univer s 300 mg 1-23 ity of capsule 00:00: [place] [address] Medical Branch clindamycin 2020-06 Yes Univer s 300 mg 1-23 ity of capsule 00:00: [place] [address] Medical Branch clindamycin 2020-06 Yes Univer s 300 mg 1-23 ity of capsule 00:00: [place] [address] Medical Branch clindamycin 2020-06 Yes Univer s 300 mg 1-23 ity of capsule 00:00: [place] [address] Medical Branch clindamycin 2020-06 Yes Univer s 300 mg 1-23 ity of capsule 00:00: [place] [address] Medical Branch clindamycin 2020-06 Yes Univer s 300 mg 1-23 ity of capsule 00:00: [place] [address] Medical Branch clindamycin 2020- Yes Univer s 300 mg 1-23 ity of capsule 00:00: [place] [address] Medical Branch clindamycin 2020- Yes Univer s 300 mg 1-23 ity of capsule 00:00: [place] [address] Medical Branch clindamycin 2020- Yes Univer s 300 mg 1-23 ity of capsule 00:00: [place] [facility] clindamycin 2020-06 Yes Univer s 300 mg 1-23 ity of capsule 00:00: [place] [facility] Branch clindamycin 2020- Yes Univer s 300 mg 1-23 ity of capsule 00:00: [place] [facility] clindamycin 2020-06 Yes Univer s 300 mg 1-23 ity of capsule 00:00: [facility] clindamycin 2020- Yes Univer s 300 mg 1-23 ity of capsule 00:00: [facility] NIFEdipine 2020- Yes Univers XL 60 mg 24 1-20 ity of hr tablet 00:00: [facility] NIFEdipine 2020- Yes Univers XL 60 mg 24 1-20 ity of hr tablet 00:00: [place] [facility] NIFEdipine 2020- Yes [facility] XL 60 mg 24 1-20 ity of hr tablet 00:00: [place] [facility] NIFEdipine 2020- Yes [facility] XL 60 mg 24 1-20 ity of hr tablet 00:00: [facility] NIFEdipine 2020- Yes [facility] XL 60 mg 24 1-20 ity of hr tablet 00:00: [address] NIFEdipine 2020- Yes [facility] XL 60 mg 24 1-20 ity of hr tablet 00:00: [facility] NIFEdipine 2020- Yes [facility] XL 60 mg 24 1-20 ity of hr tablet 00:00: [facility] NIFEdipine 2020- Yes [facility] XL 60 mg 24 1-20 ity of hr tablet 00:00: [facility] NIFEdipine 2020- Yes [facility] XL 60 mg 24 1-20 ity of hr tablet 00:00: [facility] [place] NIFEdipine 2020- Yes [facility] XL 60 mg 24 1-20 ity of hr tablet 00:00: [place] [address] [facility] [place] NIFEdipine 2020- Yes [facility] XL 60 mg 24 1-20 ity of hr tablet 00:00: [facility] NIFEdipine 2020- Yes [facility] XL 60 mg 24 1-20 ity of hr tablet 00:00: [facility] NIFEdipine 2020- Yes [facility] XL 60 mg 24 1-20 ity of hr tablet 00:00: [address] NIFEdipine 2020- Yes [facility] XL 60 mg 24 1-20 ity of hr tablet 00:00: [address] NIFEdipine 2020-06 Yes [facility] XL 60 mg 24 1-20 ity of hr tablet 00:00: [facility] NIFEdipine 2020-06 Yes [facility] XL 60 mg 24 1-20 ity of hr tablet 00:00: [facility] NIFEdipine 2020-06 Yes [facility] XL 60 mg 24 1-20 ity of hr tablet 00:00: [facility] NIFEdipine 2020- Yes [facility] XL 60 mg 24 1-20 ity of hr tablet 00:00: [facility] NIFEdipine 2020- Yes [facility] XL 60 mg 24 1-20 ity of hr tablet 00:00: [facility] NIFEdipine 2020-06 Yes [facility] XL 60 mg 24 1-20 ity of hr tablet 00:00: [facility] NIFEdipine 2020-06 Yes [facility] XL 60 mg 24 1-20 ity of hr tablet 00:00: [facility] gabapentin 2020-06 Yes 3 (three) Un rm 300 mg 0-28 times ity of capsule 00:00: daily. [facility] gabapentin 2020- Yes 3 (three) Un rm 300 mg 0-28 times ity of capsule 00:00: daily. [facility] gabapentin 2020- Yes 3 (three) Un rm 300 mg 0-28 times ity of capsule 00:00: daily. [facility] gabapentin 2020- Yes 3 (three) Un rm 300 mg 0-28 times ity of capsule 00:00: daily. [facility] gabapentin 2020- Yes 3 (three) Un rm 300 mg 0-28 times ity of capsule 00:00: daily. [facility] gabapentin 2020- Yes 3 (three) Un rm 300 mg 0-28 times ity of capsule 00:00: daily. [facility] gabapentin 2020- Yes 3 (three) Un rm 300 mg 0-28 times ity of capsule 00:00: daily. [facility] gabapentin 2020- Yes 3 (three) Un rm 300 mg 0-28 times ity of capsule 00:00: daily. [address] gabapentin 2020- Yes 3 (three) Un rm 300 mg 0-28 times ity of capsule 00:00: daily. [address] gabapentin 2020- Yes 3 (three) Un rm 300 mg 0-28 times ity of capsule 00:00: daily. [facility] gabapentin 2021-1 Yes 3 (three) Un rm 300 mg 0-28 times ity of capsule 00:00: daily. [facility] gabapentin 2021-1 Yes 3 (three) Un rm 300 mg 0-28 times ity of capsule 00:00: daily. [facility] gabapentin 1-1 Yes 3 (three) Un rm 300 mg 0-28 times ity of capsule 00:00: daily. [facility] gabapentin 1-1 Yes 3 (three) Un rm 300 mg 0-28 times ity of capsule 00:00: daily. [facility] gabapentin 1-1 Yes 3 (three) Un rm 300 mg 0-28 times ity of capsule 00:00: daily. [facility] gabapentin 1-1 Yes 3 (three) Un rm 300 mg 0-28 times ity of capsule 00:00: daily. [facility] gabapentin 1-1 Yes 3 (three) Un rm 300 mg 0-28 times ity of capsule 00:00: daily. [facility] gabapentin 1-1 Yes 3 (three) Un rm 300 mg 0-28 times ity of capsule 00:00: daily. [facility] gabapentin 1-1 Yes 3 (three) Un rm 300 mg 0-28 times ity of capsule 00:00: daily. [facility] gabapentin 1-1 Yes 3 (three) Un rm 300 mg 0-28 times ity of capsule 00:00: daily. [facility] gabapentin 2021-1 Yes 3 (three) Un rm 300 mg 0-28 times ity of capsule 00:00: daily. [facility] lisinopriL 2021-1 Yes Univers 10 mg 0-19 ity of tablet 00:00: [facility] lisinopriL 202- Yes Univers 10 mg 0-19 ity of tablet 00:00: [facility] lisinopriL 2020-1 Yes Univers 10 mg 0-19 ity of tablet 00:00: [facility] lisinopriL 2020-1 Yes Univers 10 mg 0-19 ity of tablet 00:00: [facility] lisinopriL 2020- Yes Univers 10 mg 0-19 ity of tablet 00:00: [facility] lisinopriL 2020-06 Yes Univers 10 mg 0-19 ity of tablet 00:00: [facility] lisinopriL 2020-06 Yes Univers 10 mg 0-19 ity of tablet 00:00: [facility] lisinopriL 2020-06 Yes Univers 10 mg 0-19 ity of tablet 00:00: [facility] lisinopriL 2020-06 Yes [facility] 10 mg 0-19 ity of tablet 00:00: [facility] lisinopriL 2020-06 Yes Univers 10 mg 0-19 ity of tablet 00:00: [facility] lisinopriL 2020-06 Yes Univers 10 mg 0-19 ity of tablet 00:00: [facility] lisinopriL 2020-06 Yes [facility] 10 mg 0-19 ity of tablet 00:00: [facility] lisinopriL 2020-06 Yes [facility] 10 mg 0-19 ity of tablet 00:00: [facility] lisinopriL 2020-06 Yes Univers 10 mg 0-19 ity of tablet 00:00: [facility] lisinopriL 2020-06 Yes Univers 10 mg 0-19 ity of tablet 00:00: [facility] lisinopriL 2020-06 Yes Univers 10 mg 0-19 ity of tablet 00:00: [facility] lisinopriL 2020-06 Yes Univers 10 mg 0-19 ity of tablet 00:00: [facility] lisinopriL 2020-06 Yes Univers 10 mg 0-19 ity of tablet 00:00: [facility] lisinopriL 2020-06 Yes Univers 10 mg 0-19 ity of tablet 00:00: [facility] lisinopriL 2020-06 Yes Univers 10 mg 0-19 ity of tablet 00:00: [facility] lisinopriL 2020-06 Yes Univers 10 mg 0-19 ity of tablet 00:00: [address] enoxaparin 0 Yes 40mg Q24H Inject 0.[address] (LOVENOX) 4-29 mLs (40 mg Luke s 40 mg/0.4 00:00: total) Medica l mL Syrg 00 [facility] us daily. multivitami 2021- No 1{tbl} QD Take [address] n -22 10-29 tablet by [facility] (THERAGRAN) 00:00: 23:59 mouth Medi nic tablet 00 :00 daily. [place] multivitami 2021- No 1{tbl} QD Take [address] n -22 10-29 tablet by [facility] (THERAGRAN) 00:00: 23:59 mouth Medi nic tablet 00 :00 daily. [place] multivitami 2021- No 1{tbl} QD Take [address] n -22 10-29 tablet by [facility] (THERAGRAN) 00:00: 23:59 mouth Medi nic tablet 00 :00 daily. [place] multivitami 2021- No 1{tbl} QD Take [address] n -22 10- tablet by [facility] (THERAGRAN) 00:00: 23:59 mouth Medi nic tablet 00 :00 daily. [place] multivitami 2021- No 1{tbl} QD Take [address] n 10-22- tablet by [facility] (THERAGRAN) 00:00: 23:59 mouth Medi nic tablet 00 :00 daily. [place] enoxaparin 2021- No 40mg Q24H Inject 0.[address] [facility] (LOVENOX) 10-22 02-25 mLs (40 mg Nolberto es 40 mg/0.4 00:00: 00:00 total) Medic al mL Syrg 00 :00 [facility] us daily. enoxaparin 2021- No 40mg Q24H Inject 0.[address] [facility] (LOVENOX) 10-22 02-25 mLs (40 mg Nolberto es 40 mg/0.4 00:00: 00:00 total) Medic al mL Syrg 00 :00 [facility] us daily. enoxaparin 2021- No 40mg Q24H Inject 0.[address] [facility] (LOVENOX) 10-22 02-25 mLs (40 mg Nolberto es 40 mg/0.4 00:00: 00:00 total) Medic al mL Sy[facility] 00 :00 [facility] us[facility] daily. lidocaine 2020- No 2{patch Q24H Place [address] [facility] (LIDODERM) 10-22 } patches [facility] 5 % patch 00:00: 23:59 onto the Med ical 00 :00 skin daily Center for 30 days Remove & Discard patch within 12 hours or as directed by . polyethylen 2020- No 17g QD Take [address] [facility] e glycol 10-22 by mouth [facility] (GLYCOLAX) 00:00: 23:59 daily for M edical 17 gram 00 :00 3 days. Center packet labetaloL Yes 400mg Q.[id number] Take [address] [facility] (NORMODYNE) 4-28 [id number] tablets [facility] 100 MG 00:00: 3D (400 mg Medical tablet 00 total) by Center mouth 3 (three) times daily. hydrALAZINE Yes 75mg Take [address] [facility] (APRESOLINE 4-28 tablets [facility] ) 25 MG 00:00: (75 mg Medical tablet 00 total) by Center mouth every 8 (eight) hours. melatonin Yes 10mg QD Take [address] [facility] 10 mg Tab 4-28 by mouth [facility] 00:00: nightly. [address] melatonin Yes 10mg QD Take [address] 10 mg Tab 4-28 by mouth [facility] 00:00: nightly. [address] melatonin Yes 10mg QD Take [address] 10 mg Tab 4-28 by mouth [facility] 00:00: nightly. [address] melatonin Yes 10mg QD Take [address] 10 mg Tab 4-28 by mouth [facility] 00:00: nightly. [address] melatonin Yes 10mg QD Take [address] 10 mg Tab 4-28 by mouth [facility] 00:00: nightly. [address] melatonin Yes 10mg QD Take [address] 10 mg Tab 4-28 by mouth [facility] 00:00: nightly. [address] melatonin Yes 10mg QD Take [address] 10 mg Tab 4-28 by mouth [facility] 00:00: nightly. [address] melatonin Yes 10mg QD Take [address] 10 mg Tab - by mouth [facility] 00:00: nightly. Medical 00 [place] melatonin Yes 10mg QD Take [address] 10 mg Tab - by mouth [facility] 00:00: nightly. Medical 00 [place] NIFEdipine 2021- No 60mg Q.5D Take [address] [facility] (ADALAT CC) 10-21- tablet (60 L ukes 60 MG 24 hr 00:00: 23:59 mg total) Medical tablet 00 :00 by mouth 2 Center (two) times daily. gabapentin 2021- No 300mg QD Take [address] [facility] (NEURONTIN) 10-21- capsule Luke [facility] 300 MG 00:00: 23:59 (300 mg Medical capsule 00 :00 total) by Center mouth nightly. gabapentin 2021- No 600mg Q.[id number] Take [address] [facility] (NEURONTIN) 10-21- [id number] capsules [facility] 300 MG 00:00: 23:59 3D (600 mg Medical capsule 00 :00 total) by Center mouth 3 (three) times daily. senna-docus 2021- No 2{tbl} Q.5D Take [address] ate 10-21- tablets by [facility] (SENOKOT S) 00:00: 23:59 mouth 2 Me dical 8.6-50 mg 00 :00 (two) Center per tablet times daily. gabapentin 2021- No 300mg QD Take [address] [facility] (NEURONTIN) 10-21- capsule Luke [facility] 300 MG 00:00: 23:59 (300 mg Medical capsule 00 :00 total) by Center mouth nightly. gabapentin 2020-2021- No 600mg Q.[id number] Take [address] [facility] (NEURONTIN) 10-21- [id number] capsules [facility] 300 MG 00:00: 23:59 3D (600 mg Medical capsule 00 :00 total) by Center mouth 3 (three) times daily. senna-docus 2020-2021- No 2{tbl} Q.5D Take [address] ate 10-21-28 tablets by [facility] (SENOKOT S) 00:00: 23:59 mouth 2 Me dical 8.6-50 mg 00 :00 (two) Center per tablet times daily. gabapentin 2020-2021- No 300mg QD Take [address] [facility] (NEURONTIN) 10-21 capsule Luke s 300 MG 00:00: 23:59 (300 mg Medical capsule 00 :00 total) by Center mouth nightly. gabapentin 2021- No 600mg Q.[id number] Take [address] [facility] (NEURONTIN) 10-21 [id number] capsules [facility] 300 MG 00:00: 23:59 3D (600 mg Medical capsule 00 :00 total) by Center mouth 3 (three) times daily. senna-docus 2021- No 2{tbl} Q.5D Take [address] ate 10-21 tablets by [facility] (SENOKOT S) 00:00: 23:59 mouth 2 Me dical 8.6-50 mg 00 :00 (two) Center per tablet times daily. gabapentin 2021- No 300mg QD Take [address] [facility] (NEURONTIN) 10-21 capsule Luke s 300 MG 00:00: 23:59 (300 mg Medical capsule 00 :00 total) by Center mouth nightly. gabapentin 2021- No 600mg Q.[id number] Take [address] [facility] (NEURONTIN) 10-21 [id number] capsules [facility] 300 MG 00:00: 23:59 3D (600 mg Medical capsule 00 :00 total) by Center mouth 3 (three) times daily. senna-docus 2021- No 2{tbl} Q.5D Take [address] ate 10-21 tablets by [facility] (SENOKOT S) 00:00: 23:59 mouth 2 Me dical 8.6-50 mg 00 :00 (two) Center per tablet times daily. gabapentin 2021- No 300mg QD Take [address] [facility] (NEURONTIN) 10-21 capsule Luke s 300 MG 00:00: 23:59 (300 mg Medical capsule 00 :00 total) by Center mouth nightly. gabapentin 2021- No 600mg Q.[id number] Take [address] [facility] (NEURONTIN) 10-21 [id number] capsules [facility] 300 MG 00:00: 23:59 3D (600 mg Medical capsule 00 :00 total) by Center mouth 3 (three) times daily. senna-docus 2021- No 2{tbl} Q.5D Take [address] ate 10-21 tablets by [facility] (SENOKOT S) 00:00: 23:59 mouth 2 Me dical 8.6-50 mg 00 :00 (two) Center per tablet times daily. NIFEdipine 2021- No 60mg Q.5D Take [address] [facility] (ADALAT CC) 10-21-25 tablet (60 L ukes 60 MG 24 hr 00:00: 00:00 mg total) Medical tablet 00 :00 by mouth 2 Center (two) times daily. labetaloL 2021- No 400mg Q.[id number] Take [address] [facility] (NORMODYNE) 10-21- [id number] tablets [facility] 100 MG 00:00: 00:00 3D (400 mg Medical tablet 00 :00 total) by Center mouth 3 (three) times daily. hydrALAZINE 2021- No 75mg Take [address] [facility] (APRESOLINE 10-21-25 tablets Luke s ) 25 MG 00:00: 00:00 (75 mg Medical tablet 00 :00 total) by Center mouth every 8 (eight) hours. NIFEdipine 2021- No 60mg Q.5D Take [address] [facility] (ADALAT CC) 10-21-25 tablet (60 L ukes 60 MG 24 hr 00:00: 00:00 mg total) Medical tablet 00 :00 by mouth 2 Center (two) times daily. labetaloL 2021- No 400mg Q.[id number] Take [address] [facility] (NORMODYNE) 10-21- [id number] tablets [facility] 100 MG 00:00: 00:00 3D (400 mg Medical tablet 00 :00 total) by Center mouth 3 (three) times daily. hydrALAZINE 2021- No 75mg Take [address] [facility] (APRESOLINE 10-21-25 tablets Luke s ) 25 MG 00:00: 00:00 (75 mg Medical tablet 00 :00 total) by Center mouth every 8 (eight) hours. NIFEdipine 2021- No 60mg Q.5D Take [address] [facility] (ADALAT CC) 10-21 tablet (60 L ukes 60 MG 24 hr 00:00: 00:00 mg total) Medical tablet 00 :00 by mouth 2 Center (two) times daily. labetaloL 2021- No 400mg Q.[id number] Take [address] [facility] (NORMODYNE) 10-21 [id number] tablets [facility] 100 MG 00:00: 00:00 3D (400 mg Medical tablet 00 :00 total) by Center mouth 3 (three) times daily. hydrALAZINE 2021- No 75mg Take [address] [facility] (APRESOLINE 10-21 tablets Luke s ) 25 MG 00:00: 00:00 (75 mg Medical tablet 00 :00 total) by Center mouth every 8 (eight) hours. traZODone No 100mg QD Take [address] [facility] (DESYREL) 10-21 tablet [facility] 100 MG 00:00: 23:59 (100 mg Medical tablet 00 :00 total) by Center mouth nightly for 30 days. polyvinyl 2020- No 1[drp] Q.[id number] Place [address] [facility] alcohol 10-21 [id number] drop into [facility] (LIQUIFILM 00:00: 23:59 3D both eyes M edical TEARS) 1.4 00 :00 3 (three) Cent er % times ophthalmic daily for solution 30 days. morphine 2020- No 30mg Take [address] [facility] (MS CONTIN) 10-21 tablet (30 L ukes 30 MG 12 hr 00:00: 23:59 mg total) Medical tablet 00 :00 by mouth Center every 8 (eight) hours for 30 days. Max Daily Amount: 90 mg bisacodyL 2020- No 10mg Place [address] [facility] (DULCOLAX) 10-21 suppositor Feliberto kes 10 mg 00:00: 23:59 y (10 mg Medical suppository 00 :00 total) Center rectally daily as needed for up to 10 days. tiZANidine 2020- No 2mg Take [address] [facility] (ZANAFLEX) 10-21 05-08 tablet (2 Nolberto es 2 MG tablet 00:00: 23:59 mg total) Medical 00 :00 by mouth Center every 8 (eight) hours as needed for up to 10 days. HYDROcodone 2020- No 2{tbl} Take [address] -acetaminop 10-21 05-08 tablets by Winsome tam (NORCO 00:00: 23:59 mouth Medic al 10-325) 00 :00 every 4 Center 10-325 mg (four) per tablet hours as needed for up to 10 days. Max Daily Amount: 12 tablets Clonidine 2019-06 Yes 0.1 mg = 1 Me moria Hydrochlori 2-11 tab, PO, l de 0.1 MG 20:10: Q8H-05, # Her borja Oral Tablet 00 90 tab, 0 Refill(s), Pharmacy: [facility] 7309, 180.34, cm, 06/04/20 4:31:00 [employer]EL[employer], Height, 89, kg, 06/04/20 4:31:00 [employer], Weight NIFEdipine 2019-06 Yes 60 mg = 1 Me moria 60 mg oral 2-11 tab, PO, l tablet, 20:10: Q12H, # 60 Herm dalton extended 00 tab, 0 release Refill(s), Pharmacy: [facility] 7309, 180.34, cm, 06/04/20 4:31:00 [employer], Height, 89, kg, 06/04/20 4:31:00 [employer], Weight metoprolol 2019-06 Yes 25 mg = 1 Me moria 25 mg oral 2-11 tab, PO, l tablet, 20:10: Daily, # Rohan n extended 00 30 tab, 0 release Refill(s), Pharmacy: [facility] 7309, 180.34, cm, 06/04/20 4:31:00 [employer], Height, 89, kg, 06/04/20 4:31:00 [employer], Weight Furosemide 2019-06 Yes 40 mg = 1 Me moria 40 MG Oral 2-11 tab, PO, l Tablet 20:10: BID, # 60 Rohan n [Lasix] 00 tab, 0 Refill(s), Pharmacy: [facility] 7309, 180.34, cm, 06/04/20 4:31:00 [employer], Height, 89, kg, 06/04/20 4:31:00 [employer], Weight Potassium 2019-06 No Notes: Memori a Chloride 2-11 (Same as: l 18:17: K-Dur 20) [place] 00 "Do Not Crush" Give with food and full glass of water For patients unable to swallow tablet, dissolve in one half glass of water. Allow about 2 minutes for the tablets to disintegra te. Stir before giving to prepare slurry and administer . Please exclude Patient s with feeding tube less than 14 [place] (Dobhoff, J-tube etc) and pediatric and patients. Morphine 2019-06 No Notes: Memoria 2-11 (Same l 18:16: as:MORPhin [place] 00 e Sulfate) tramadol 2019-06 No Notes: Not Mem oria hydrochlori 2-11 to exceed l de 50 MG 05:37: 400mg/day. Her borja Oral Tablet 00 (Same As: Ultram) Zofran 2019-06 No Notes: Memoria 2-11 (Same as: l 05:36: Zofran) [place] 00 MEDICATION WASTE Product Size: 4 mg Product Wasted: ___ mg NIFEdipine 2019-06 No Notes: Memor ia 60 mg oral 2-11 (Same as: l tablet, 03:00: Adalat CC, Herm dalton extended 00 Procardia release XL) Morphine 2019-06 No Notes: [facility] 2-10 (Same l 22:14: as:MORPhin [place] 00 e Sulfate) Potassium 2019-06 No Notes: Memori a Chloride 2-10 (Same as: l 21:25: K-Dur 20) [place] 00 "Do Not Crush" Give with food and full glass of water For patients unable to swallow tablet, dissolve in one half glass of water. Allow about 2 minutes for the tablets to disintegra te. Stir before giving to prepare slurry and administer . Please exclude Patient s with feeding tube less than 14 [place] (Dobhoff, J-tube etc) and pediatric and patients. potassium 2019-06 No Notes: Memori a phosphate-s 2-10 (Same as: l odium 21:25: Phos-NaK) [place] phosphate 00 Each 1.5 250 mg-280 gm pkt has mg-160 mg 250mg oral powder phosphorou for s. Mix reconstitut w/2.5oz ion water and stir. potassium 2019-06 No Notes: Memori a phosphate 2-10 (Same as: l 21:25: K Phosphate. ) Do not infuse phosphorou s concurrent ly in the same line as TPN or IVF that contains calcium. For double lumen central lines, phosphorou s may be infused in a separate lumen from TPN. 1 mMol phoshate has 1.47 mEq potassium Infuse over 4 hours sodium 2019-06 No Notes: Memoria phosphate 2-10 Infuse l 21:25: over 4 hour. Do not infuse phosphorou s concurrent ly in the same line as TPN or IVF that contains calcium. For double lumen central lines, phosphorou s may be infused in a separate lumen from TPN. Magnesium 2019-06 No Notes: Memori a Sulfate 2-10 WASTE: F/P l 21:25: - Sink; E - Municipal Trash Bin Magnesium 2019-06 No Notes: Memori a Oxide 2-10 (Same as: l 21:25: Mag-Ox 400) Magnesium oxide 691hm=747p g elemental magnesium Dose=____m g magnesium oxide (___mg elemental magnesium) Calcium 2019-06 No Notes: [facility]oria Gluconate 2-10 Contains: l 21:25: calcium gluconate 20mg/mL NaCl 0.67% 100mL WASTE: F/P - Sink; E - Municipal Trash Bin Acetaminoph 2019-06 No Notes: Max Memoria en 2-10 acetaminop l 18:00: hen = 4000mg/day (4 gm/day). (Same as: Tylenol) Hydralazine 2019-06 No Notes: Jerry liliane 2-10 (Same as: l 16:00: Apresoline ) May interfere w/enteral feedings Take With Food. Acetaminoph 2019-06 No Notes: Jerry liliane en 2-10 (Same as: l 15:00: Tylenol) NIFEdipine 2019-06 No Notes: Memor ia 60 mg oral 2-10 (Same as: l tablet, 15:00: Adalat CC, Herm dalton extended Procardia release XL) 24 HR 2019-06 No Notes: [facility]oria Metoprolol 2-10 (Same as: l Tartrate 25 15:00: Toprol XL) [place] MG Extended 00 Do Not Release Crush Tablet [Toprol] Furosemide 2019-06 No Notes: Memor ia 40 MG Oral 2-10 (Same as: l Tablet 15:00: Lasix) May Amairani nn [Lasix] 00 cause GI upset. Give with food or milk. acetaminoph 2019-06 No Notes: Do M emoria en-codeine 2-10 not exceed l #3 10:27: 4gm/day of acetaminop hen. (Same as: Tylenol with Codeine # 3) Acetaminoph 2019-06 No Notes: Do M emoria en 2-10 not exceed l 10:26: 4 gm/day. (Same as: Tylenol) Morphine 2019-06 No Notes: Memoria 2-10 (Same l 10:26: as:MORPhin e Sulfate) Hydralazine 2019-06 No Notes: Jerry liliane 2-10 (Same as: l 06:06: Apresoline ) Push over 5 minutes Ativan 2019-06 No 1 mg, Memoria 2-10 Route: l 03:19: IVP, Drug form: INJ, ONCE, Dosing Weight 89.318, kg, PRN Anxiety, Start date: 06/03/20 21:19:00 [employer] Clonidine 2019-06 No Notes: Memori a Hydrochlori 2-10 (Same As: l de 0.1 MG 03:00: Catapres) Her borja Oral Tablet 00 NIFEdipine 2019-06 No Notes: Memor ia 60 mg oral 2-10 (Same as: l tablet, 03:00: Adalat CC, Herm dalton extended 00 Procardia release XL) Give on empty stomach. Take 1 hour before or 2 hours after meal; "Avoid grapefruit and grapefruit juice". Do not crush Potassium 2019-06 No 40 mEq, Memor ia Chloride - Route: PO, l 21:53: Drug form: ERTAB, ONCE, Dosing Weight 89.318, kg, Priority: STAT, Start date: 06/03/20 15:53:00 [employer], Stop date: 06/03/20 15:53:00 [employer] Dextrose 2019-06 No 12.5 gm, Memor ia 50% Syringe 2- 25 mL, l (D50W) 21:53: Route: [place] 00 IVP, Drug Form: INJ, Dosing Weight 89.318, kg, PRN, PRN Blood Glucose Results, Start date: 06/03/20 15:53:00 [employer]T, Duration: 30 day, Stop date: 07/03/20 15:52:00 [employer], 0 Glucagon 2019-06 No 1 mg, Memoria - Route: IM, l 21:53: Drug form: [place] 00 PDR/INJ, PRN, Dosing Weight 89.318, kg, PRN Blood Glucose Results, Start date: 06/03/20 15:53:00 [employer]T, Duration: 30 day, Stop date: 07/03/20 15:52:00 [employer], 0 Morphine 2019-06 No Notes: Memoria 2- (Same l 21:32: as:MORPhin [place] 00 e Sulfate) Nitroglycer 2019-06 No Notes: Jerry liliane in 0.4 MG 08-04 (Same l Sublingual 21:31: as:Nitroqu H ermann Tablet 00 ick, Nitrostat) "Do Not Crush" Sublingual tablet Labetalol 2019-06 No Notes: Memori a 2- (Same as: l 21:24: Normodyne, [place] 00 Trandate) Push over 2 minutes Give bolus over 2-3 minutes. Clonidine 2019-06 No Notes: Memori a 2-09 (Same As: l 21:24: Catapres) [place] 00 Tylenol 2019-06 No Notes: Max Jerry liliane 2- acetaminop l 21:24: hen 4000 [place] 00 mg/day (4 gm/day). (Same as: Tylenol Extra Strength) Lasix 2019-06 No Notes: Memoria 2-09 (Same as: l 21:23: Lasix) [place] 00 MEDICATION WASTE Product Size: 40 mg Product Wasted: ___ mg Omnipaque 2019- No 45 Memoria 300 2-09 mL/min, l injectable 19:37: STAT, Rohan n solution 00 Start date: 06/03/20 13:37:00 [employer], Duration: 1 doses or times Zofran 2019-06 No Notes: Memoria 2-09 (Same as: l 19:01: Zofran) MEDICATION WASTE Product Size: 4 mg Product Wasted: ___ mg Morphine 2019-06 No 4 mg, Memoria 2- Route: l 18:34: IVP, ONCE, Dosing Weight 89.318, kg, Priority: STAT, Start date: 06/03/20 12:34:00 [employer] WELT, Stop date: 06/03/20 12:34:00 [employer] Benadryl 2019-06 No Notes: Memoria 2- (Same as: l 17:33: Benadryl) Labetalol 2019-06 No Notes: Memori a 2- (Same as: l 17:33: Normodyne, Trandate) Push over 2 minutes Give bolus over 2-3 minutes. Saline 2019-06 No Notes: Memoria Flush 0.9% 08-04 (Same as: l 17:17: BD Posiflush) Aspirin 2019-06 No Notes: Memoria 2- Take with l 17:17: food. Morphine 0 No 4 mg, Memoria 03-24 Route: l 10:20: IVP, ONCE, Dosing Weight 113.636, kg, Priority: STAT, Start date: 03/24/20 5:20:00 CDT, Stop date: 03/24/20 5:20:00 CDT Labetalol No 10 mg, Memori a 03-24 Route: IV, l 10:14: ONCE, Dosing Weight 113.636, kg, Start date: 03/24/20 5:14:00 CDT, Stop date: 03/24/20 5:14:00 CDT Benadryl No Notes: Memoria 03-24 (Same as: l 09:09: Benadryl) Acetaminoph No Notes: Jerry liliane en 325 MG / 03-24 (Same as: l Hydrocodone 09:09: [place] Amairani nn Bitartrate 00 325/5) Do 5 MG Oral not exceed Tablet 4gm/day of [[place] acetaminop 5/325] hen. Labetalol No Notes: Memori a 03-24 (Same as: l 09:08: Normodyne, [place] 00 Trandate) Push over 2 minutes Give bolus over 2-3 minutes. Zofran 2020-0 No Notes: Memoria 03-24 (Same as: l 09:08: Zofran) MEDICATION WASTE Product Size: 4 mg Product Wasted: ___ mg Omnipaque 2020-0 No 45 [facility] 300 9-29 mL/min, l injectable 08:54: STAT, Rohan n solution 00 Start date: 03/24/20 3:54:00 CDT, Duration: 1 doses or times Saline 2020-0 No Notes: Memoria Flush 0.9% 03-24 (Same as: l 08:41: [place] 00 Posiflush) acetaminoph 2020-0 Yes 650mg Take [address] [facility]01 [facility] (TYLENOL) 00:00: (650 mg Medic al 325 MG 00 total) by Center tablet mouth every 6 (six) hours as needed. terazosin 2020-0 Yes 1mg QD Take [address] [facility] (HYTRIN) 1 9-01 capsule (1 Nolberto es MG capsule 00:00: mg total) Me dical 00 by mouth Center nightly. acetaminoph 2020-0 Yes 650mg Take [address] [facility] (TYLENOL) 00:00: (650 mg Medic al 325 MG 00 total) by Center tablet mouth every 6 (six) hours as needed. terazosin 2020-0 Yes 1mg QD Take [address] [facility] (HYTRIN) 1 9-01 capsule (1 [facility] es MG capsule 00:00: mg total) Me dical 00 by mouth Center nightly. acetaminoph 2020-0 Yes 650mg Take [address] [facility] en [facility] (TYLENOL) 00:00: (650 mg Medic al 325 MG 00 total) by Center tablet mouth every 6 (six) hours as needed. terazosin 2020-0 Yes 1mg QD Take [address] [facility] (HYTRIN) 1 9-01 capsule (1 [facility] es MG capsule 00:00: mg total) Me dical 00 by mouth Center nightly. acetaminoph 2020-0 Yes 650mg Take [address] [facility] en 9-01 tablets [facility] (TYLENOL) 00:00: (650 mg Medic al 325 MG 00 total) by Center tablet mouth every 6 (six) hours as needed. terazosin 2020-0 Yes 1mg QD Take [address] [facility] (HYTRIN) 1 9-01 capsule (1 [facility]to es MG capsule 00:00: mg total) Me dical 00 by mouth Center nightly. acetaminoph 2020-0 Yes 650mg Take [address] [facility] en 9-01 [facility] (TYLENOL) 00:00: (650 mg Medic al 325 MG 00 total) by Center tablet mouth every 6 (six) hours as needed. terazosin 2020-0 Yes 1mg QD Take [address] [facility] (HYTRIN) 1 9-01 capsule (1 [facility]to es MG capsule 00:00: mg total) Me dical 00 by mouth Center nightly. acetaminoph 2020-0 Yes 650mg Take [address] [facility] en 9-01 tablets [facility] (TYLENOL) 00:00: (650 mg Medic al 325 MG 00 total) by Center tablet mouth every 6 (six) hours as needed. terazosin 2020-0 Yes 1mg QD Take [address] [facility] (HYTRIN) 1 9-01 capsule (1 [facility]to es MG capsule 00:00: mg total) Me dical 00 by mouth Center nightly. acetaminoph 2020-0 Yes 650mg Take [address] [facility] en 9-01 tablets [facility] (TYLENOL) 00:00: (650 mg Medic al 325 MG 00 total) by Center tablet mouth every 6 (six) hours as needed. terazosin 2020-0 Yes 1mg QD Take [address] [facility] (HYTRIN) 1 9-01 capsule (1 [facility] es MG capsule 00:00: mg total) Me dical 00 by mouth Center nightly. acetaminoph 2020-0 Yes 650mg Take [address] [facility] en 9-01 tablets [facility] (TYLENOL) 00:00: (650 mg Medic al 325 MG 00 total) by Center tablet mouth every 6 (six) hours as needed. terazosin 2020-0 Yes 1mg QD Take [address] [facility] (HYTRIN) 1 9-01 capsule (1 [facility]to es MG capsule 00:00: mg total) Me dical 00 by mouth Center nightly. acetaminoph 2020-0 Yes 650mg Take [address] [facility] en 9-01 tablets [facility] (TYLENOL) 00:00: (650 mg Medic al 325 MG 00 total) by Center tablet mouth every 6 (six) hours as needed. terazosin 2020-0 Yes 1mg QD Take [address] [facility] (HYTRIN) 1 02-24 capsule (1 N[facility]berto es MG capsule 00:00: mg total) Me dical 00 by mouth Center nightly. hydrALAZINE 2020- No 100mg Take [address] [facility] [address] [facility] (APRESOLINE 02-24 tablet [facility] ) 100 MG 00:00: 00:00 (100 mg Medic al tablet 00 :00 total) by Center mouth every 8 (eight) hours. hydroCHLORO No 25mg QD Take [address] [facility] thiazide 02-24 tablet (25 [facility] (HYDRODIURI 00:00: 00:00 mg total) Medical L) 25 MG 00 :00 by mouth Center tablet daily. labetaloL 2020- No 400mg Take [address] [facility] (NORMODYNE) 02-24 tablets Luke [facility] 200 MG 00:00: 00:00 (400 mg Medical tablet 00 :00 total) by Center mouth every 12 (twelve) hours. NIFEdipine No 90mg Q.5D Take [address] [facility] (ADALAT CC) 02-24 tablet (90 L ukes 90 MG 24 hr 00:00: 00:00 mg total) Medical tablet 00 :00 by mouth 2 Center (two) times daily. aspirin 2019-0 Yes Essential 81mg QD Chew and H arris (ASPIRIN) 8-24 hypertensio swallow 1 Health 81 mg 00:00: n tablet by chewable 00 mouth tablet daily. aspirin 2020-0 Yes Essential 81mg QD Chew and H arris (ASPIRIN) 8-24 hypertensio swallow 1 Health 81 mg 00:00: n tablet by chewable 00 mouth tablet daily. aspirin 2020-0 Yes Essential 81mg QD Chew and H arris (ASPIRIN) 8-24 hypertensio swallow 1 Health 81 mg 00:00: n tablet by chewable 00 mouth tablet daily. aspirin 2020-0 Yes Essential 81mg QD Chew and H arris (ASPIRIN) 8-24 hypertensio swallow 1 Health 81 mg 00:00: n tablet by chewable 00 mouth tablet daily. acetaminoph 2020-0 Yes Essential 650mg Take 2 [facility] en 8- hypertensio tablets by He matti (TYLENOL) 00:00: n mouth 325 mg 00 every 6 tablet hours as needed for Pain. metoprolol 2020-0 Yes Essential 50mg Take 1 [facility] succinate 8-23 hypertensio tablet by Health (TOPROL XL) 00:00: n mouth 50 mg 00 every 12 extended hours. release tablet NIFEdipine 2020-0 Yes Essential 60mg QD Take 1 [facility] (NIFEDIPINE 8-23 hypertensio tablet by Health ER) 60 mg 00:00: n mouth 24 hr 00 daily. extended release tablet traMADoL 2020-0 Yes Back pain 100mg Take 2 H arris (ULTRAM) 50 8-23 without tablets by Health mg tablet 00:00: sciatica mouth 00 every 6 hours as needed for Pain. acetaminoph 2020-0 Yes Essential 650mg Take 2 [facility] en 8-23 hypertensio tablets by He alth (TYLENOL) 00:00: n mouth 325 mg 00 every 6 tablet hours as needed for Pain. metoprolol 2020-0 Yes Essential 50mg Take 1 [facility] succinate 8-23 hypertensio tablet by Health (TOPROL XL) 00:00: n mouth 50 mg 00 every 12 extended hours. release tablet NIFEdipine 2020-0 Yes Essential 60mg QD Take 1 [facility] (NIFEDIPINE 8-23 hypertensio tablet by Health ER) 60 mg 00:00: n mouth 24 hr 00 daily. extended release tablet traMADoL 2020-0 Yes Back pain 100mg Take 2 H [facility] (ULTRAM) 50 8-23 without tablets by Health mg tablet 00:00: sciatica mouth 00 every 6 hours as needed for Pain. acetaminoph 2020-0 Yes Essential 650mg Take 2 [facility] en 8-23 hypertensio tablets by He alth (TYLENOL) 00:00: n mouth 325 mg 00 every 6 tablet hours as needed for Pain. acetaminoph 2020-0 Yes Essential 650mg Take 2 [facility] en 8-23 hypertensio tablets by He alth (TYLENOL) 00:00: n mouth 325 mg 00 every 6 tablet hours as needed for Pain. metoprolol 2020-0 Yes Essential 50mg Take 1 [facility] succinate 8-23 hypertensio tablet by Health (TOPROL XL) 00:00: n mouth 50 mg 00 every 12 extended hours. release tablet NIFEdipine 2020-0 Yes Essential 60mg QD Take 1 [facility] (NIFEDIPINE 8-23 hypertensio tablet by Health ER) 60 mg 00:00: n mouth 24 hr 00 daily. extended release tablet traMADoL 2020-0 Yes Back pain 100mg Take 2 H arris (ULTRAM) 50 8-23 without tablets by Health mg tablet 00:00: sciatica mouth 00 every 6 hours as needed for Pain. metoprolol 2020-0 Yes Essential 50mg Take 1 [facility] succinate 8-23 hypertensio tablet by Health (TOPROL XL) 00:00: n mouth 50 mg 00 every 12 extended hours. release tablet NIFEdipine 2020-0 Yes Essential 60mg QD Take 1 [facility] (NIFEDIPINE 8-23 hypertensio tablet by [facility] ER) 60 mg 00:00: n mouth 24 hr 00 daily. extended release tablet traMADoL 2020-0 Yes Back pain 100mg Take 2 H arris (ULTRAM) 50 8-23 without tablets by Health mg tablet 00:00: sciatica mouth 00 every 6 hours as needed for Pain. aspirin 81 2020-0 Yes 81mg QD [facility] (81 [facility] tablet 00:00: mg total) Medica l 00 by mouth Center daily. aspirin 81 2020-0 Yes 81mg QD Take 1 [facility] MG [facility] 8-[facility] tablet (81 [facility] tablet 00:00: mg total) Medica l 00 by mouth Center daily. aspirin 81 2020-0 Yes 81mg QD Take 1 [facility] MG EC 8-22 tablet (81 [facility] tablet 00:00: mg total) Medica l 00 by mouth Center daily. aspirin 81 2020-0 Yes 81mg QD Take 1 [facility] MG EC 8-22 tablet (81 [facility] tablet 00:00: mg total) Medica l 00 by mouth Center daily. aspirin 81 2020-0 Yes 81mg QD Take 1 [facility] MG [facility] 8-[facility] tablet (81 [facility] tablet 00:00: mg total) Medica l 00 by mouth Center daily. aspirin 81 2020-0 Yes 81mg QD Take 1 [facility] MG EC 8-[facility] tablet (81 [facility] tablet 00:00: mg total) Medica l 00 by mouth Center daily. aspirin 81 2020-0 Yes 81mg QD Take 1 [facility] MG [facility] 8-[facility] tablet (81 [facility] tablet 00:00: mg total) Medica l 00 by mouth Center daily. aspirin 81 2020-0 Yes 81mg QD Take 1 [facility] MG [facility] 8-[facility] tablet (81 [facility] tablet 00:00: mg total) Medica l 00 by mouth Center daily. aspirin 81 2020-0 Yes 81mg QD Take 1 [facility] 8-[facility] tablet (81 [facility] tablet 00:00: mg total) Medica l 00 by mouth Center daily. Vital Signs Vital Name Observation Time Observation Value Comments Source HEIGHT 2020-02-09 00:00:00 180.3 cm WEIGHT 2020-02-09 00:00:00 120.158 kg Systolic blood 2022-09-28 19:14:00 127 mm[Hg] [facility] Diastolic blood 2022-09-28 19:14:00 81 mm[Hg] [facility] Heart rate 2022-09-28 19:14:00 83 /min [facility] Body temperature 2022-09-28 19:14:00 36.72 Reta [facility] Respiratory rate 2022-09-28 19:14:00 16 /min [facility] Body height 2022-09-28 19:14:00 180.3 cm [facility] Body weight 2022-09-28 19:14:00 102.967 kg [facility] BMI 2022-09-28 19:14:00 31.66 kg/m2 [facility] Oxygen saturation in 2022-09-28 19:14:00 97 /min [facility] Arterial blood by [facility] Pulse oximetry Branch Systolic blood 2022-09-16 13:23:00 115 mm[Hg] [facility] Diastolic blood 2022-09-16 13:23:00 74 mm[Hg] [facility] Heart rate 2022-09-16 13:23:00 87 /min [facility] Body temperature 2022-09-16 13:23:00 36.67 Reta Univ ersity [facility] Respiratory rate 2022-09-16 13:23:00 16 /min [facility] Body height 2022-09-16 13:23:00 180.3 cm [facility] Body weight 2022-09-16 13:23:00 104.327 kg [facility] BMI 2022-09-16 13:23:00 32.08 kg/m2 [facility] Oxygen saturation in 2022-09-16 13:23:00 100 /min [facility] of Arterial blood by [facility] Pulse oximetry Branch Systolic blood 2022-09-09 16:07:00 109 mm[Hg] [facility]ity [facility] Diastolic blood 2022-09-09 16:07:00 72 mm[Hg] [facility]ive rsity of pressure [facility] Heart rate 2022-09-09 16:07:00 92 /min [facility] Body temperature 2022-09-09 16:07:00 37.11 Reta [facility] Respiratory rate 2022-09-09 16:07:00 17 /min [facility] Oxygen saturation in 2022-09-09 16:07:00 93 /min [facility] Arterial blood by [facility] Pulse oximetry Branch Body weight 2022-09-08 20:00:00 105.46 kg [facility] BMI 2022-09-08 20:00:00 32.43 kg/m2 [facility] Body height 2022-09-07 09:00:00 180.3 cm [facility] HEIGHT 2022-03-04 10:18:00 180.3 cm WEIGHT 2022-03-04 10:18:00 92.987 kg HEIGHT 2022-03-04 10:18:00 180.3 cm WEIGHT 2022-03-04 10:18:00 92.987 kg HEIGHT 2022-03-04 10:18:00 180.3 cm WEIGHT 2022-03-04 10:18:00 92.987 kg WEIGHT 2021-08-23 05:18:00 92.5 kg WEIGHT 2021-08-21 06:10:00 90.175 kg HEIGHT 2021-08-17 11:11:00 180.3 cm WEIGHT 2021-08-17 11:11:00 92.987 kg HEIGHT 2021-08-17 10:23:00 180.3 cm WEIGHT 2021-08-17 10:23:00 92.987 kg WEIGHT 2021-08-23 05:18:00 92.5 kg WEIGHT 2021-08-21 06:10:00 90.175 kg HEIGHT 2021-08-17 11:11:00 180.3 cm WEIGHT 2021-08-17 11:11:00 92.987 kg HEIGHT 2021-08-17 10:23:00 180.3 cm WEIGHT 2021-08-17 10:23:00 92.987 kg Systolic blood 2021-06-28 17:26:00 133 mm[Hg] [facility] Diastolic blood 2021-06-28 17:26:00 84 mm[Hg] Unive rsity of pressure [facility] Heart rate 2021-06-28 17:26:00 68 /min [facility] Body height 2021-06-28 17:26:00 180.3 cm [facility] Body weight 2021-06-28 17:26:00 90.719 kg [facility] BMI 2021-06-28 17:26:00 27.89 kg[facility] 2021-06-28 17:26:00 100 /min [facility] Arterial blood by [facility] Pulse oximetry Branch HEIGHT 2020-10-17 11:32:00 180.3 cm WEIGHT 2020-09-19 04:02:00 73.483 kg WEIGHT 2020-09-18 04:59:00 69.491 kg WEIGHT 2020-09-17 04:23:00 71.759 kg WEIGHT 2020-09-16 07:55:00 72.576 kg WEIGHT 2020-09-12 04:53:00 76.386 kg WEIGHT 2020-09-10 06:22:00 75.161 kg HEIGHT 2020-09-10 00:24:00 180 cm WEIGHT 2020-09-10 00:24:00 90.719 kg HEIGHT 2020-10-17 11:32:00 180.3 cm WEIGHT 2020-09-19 04:02:00 73.483 kg WEIGHT 2020-09-18 04:59:00 69.491 kg WEIGHT 2020-09-17 04:23:00 71.759 kg WEIGHT 2020-09-16 07:55:00 72.576 kg WEIGHT 2020-09-12 04:53:00 76.386 kg WEIGHT 2020-09-10 06:22:00 75.161 kg HEIGHT 2020-09-10 00:24:00 180 cm WEIGHT 2020-09-10 00:24:00 90.719 kg HEIGHT 2020-02-18 00:00:00 180.3 cm WEIGHT 2020-02-18 00:00:00 113.671 kg HEIGHT 2020-02-18 00:00:00 180.3 cm WEIGHT 2020-02-18 00:00:00 113.671 kg HEIGHT 2020-02-09 00:00:00 180.3 cm WEIGHT 2020-02-09 00:00:00 120.158 kg Systolic blood 2022-03-29 16:05:00 165 mm[Hg] [facility] pressure Diastolic blood 2022-03-29 16:05:00 115 mm[Hg] [facility] pressure Heart rate 2022-03-29 16:05:00 79 /min [facility] Body temperature 2022-03-29 16:05:00 36.56 Reta [facility] Respiratory rate 2022-03-29 16:05:00 16 /min [facility] Oxygen saturation in 2022-03-29 16:05:00 97 /min [facility] Arterial blood by Pulse oximetry Systolic blood 2022-03-28 14:20:00 157 mm[Hg] [facility] pressure Diastolic blood 2022-03-28 14:20:00 93 mm[Hg] [facility] Heart rate 2022-03-28 14:20:00 104 /min [facility] Body temperature 2022-03-28 14:20:00 37.06 Reta [facility] Respiratory rate 2022-03-28 14:20:00 20 /min [facility] Body weight 2022-03-28 14:20:00 80 kg [facility] BMI 2022-03-28 14:20:00 24.60 kg/m2 [facility] Oxygen saturation in 2022-03-28 14:20:00 99 /min [facility] Arterial blood by Pulse oximetry Systolic blood 2022-03-04 17:10:00 142 mm[Hg] [facility] Diastolic blood 2022-03-04 17:10:00 86 mm[Hg] [facility] Heart rate 2022-03-04 17:10:00 98 /min [facility] Body temperature 2022-03-04 17:10:00 37.11 Reta [facility] Respiratory rate 2022-03-04 17:10:00 17 /min [facility] Oxygen saturation in 2022-03-04 12:45:00 95 /min [facility] Arterial blood by Medical Ce [facility]ter Pulse oximetry Body height 2022-03-04 10:18:00 180.3 cm [facility] Body weight 2022-03-04 10:18:00 92.987 kg [facility] BMI 2022-03-04 10:18:00 28.59 kg/m2 [facility] Body height 2022-01-03 04:23:00 180.3 cm [facility] Systolic blood 2020-10-21 11:22:00 152 mm[Hg] [facility] Diastolic blood 2020-10-21 11:22:00 82 mm[Hg] [facility] Heart rate 2020-10-21 11:22:00 85 /min [facility] Body temperature 2020-10-21 11:22:00 35.83 Reta [facility] Respiratory rate 2020-10-21 11:22:00 18 /min [facility] Oxygen saturation in 2020-10-21 11:22:00 100 /min [facility] Arterial blood by Medical Ce nter Pulse oximetry Body height 2020-10-17 11:32:00 180.3 cm [facility] Body weight 2020-09-19 04:02:00 73.483 kg [facility] BMI 2020-09-19 04:02:00 22.59 kg/m2 [facility] Temperature Oral (F) 2020-06-06 05:45:00 98.1 F [facility] Heart Rate 2020-06-06 05:45:00 [facility] Systolic (mm Hg) 2020-06-06 05:45:00 Jerry rial [place] Diastolic (mm Hg) 2020-06-06 05:45:00 [facility] Temperature Oral (F) 2020-06-06 01:35:00 98.2 F [facility] [place] Heart Rate 2020-06-06 01:35:00 [facility] Respitory Rate 2020-06-06 01:35:00 [facility] [place] Systolic (mm Hg) 2020-06-06 01:35:00 Jerry rial [facility] Diastolic (mm Hg) 2020-06-06 01:35:00 Mem [facility] Temperature Oral (F) 2020-06-05 22:00:00 98.2 F [facility] Heart Rate 2020-06-05 22:00:00 [facility] [place] Systolic (mm Hg) 2020-06-05 22:00:00 Jerry rial [facility] Diastolic (mm Hg) 2020-06-05 22:00:00 Mem [facility] Respitory Rate 2020-06-05 22:00:00 [facility] Respitory Rate 2020-06-05 18:00:00 [facility] Height 2020-06-04 10:31:00 180.34 cm [facility] [place] Weight 2020-06-04 10:31:00 [facility] [place] BMI Calculated 2020-06-04 10:31:00 [facility] [place] Height 2020-06-03 17:08:00 180.34 cm [facility] BMI Calculated 2020-06-03 17:08:00 [facility] [place] Weight 2020-06-03 17:08:00 [facility] Respitory Rate 2020-03-24 10:55:00 [facility] Systolic (mm Hg) 2020-03-24 10:55:00 Jerry rial [facility] Diastolic (mm Hg) 2020-03-24 10:55:00 Mem orial [place] Heart Rate 2020-03-24 10:55:00 [facility] [place] Respitory Rate 2020-03-24 10:30:00 [facility] Systolic (mm Hg) 2020-03-24 10:30:00 Jerry rial [place] Diastolic (mm Hg) 2020-03-24 10:30:00 Mem orial [place] Heart Rate 2020-03-24 10:30:00 [facility] [place] Respitory Rate 2020-03-24 10:13:00 [facility] [place] Systolic (mm Hg) 2020-03-24 10:13:00 Jerry rial [place] Diastolic (mm Hg) 2020-03-24 10:13:00 Mem [facility] Heart Rate 2020-03-24 10:13:00 [facility] BMI Calculated 2020-03-24 08:41:00 [facility] Height 2020-03-24 08:32:00 185.42 cm [facility] Calculated 2020-03-24 08:32:00 Jessica Vazquez Weight 2020-03-24 08:32:00 [facility] Temperature Oral (F) 2020-03-24 08:32:00 98.9 F [facility] Procedures Procedure Date / Time Performing Clinician Source Performed EXTERNAL PROVIDER RECORDS 2022-10-21 05:01:00 Doctor Unassigned, [facility] Name [facility] [place] EXTERNAL PROVIDER RECORDS 2022-09-28 05:01:00 Doctor Unassigned, [facility] Name [facility] [place] ASSIGNMENT OF BENEFITS 2022-09-16 13:04:05 Doctor Unassigned, [facility] PHOSPHORUS 2022-09-09 10:24:[facility] 2022-09-09 10:24[facility]EL 2022-09-09 10:24[facility] CL, CO2, GLUCOSE, Medica l Branch BUN, CREATININE, CA) CBC WITH DIFF 2022-09-09 10:24:00 [facility] 2022-09-08 09:53:00 [facility] 2022-09-08 09:53:00 [facility] BASIC [facility]OLIC PANEL 2022-09-08 09:53:00 [facility] ([facility], K, CL, CO2, GLUCOSE, Medica l Branch BUN, CREATININE, CA) CBC WITH DIFF 2022-09-08 09:53:00 [facility] 2022-09-07 12:09:00 Мария [facility] MAGNESIUM 2022-09-07 12:09:00 [facility]RE[facility] PROTEIN 2022-09-07 12:09:00 [facility] 2022-09-07 12:09:00 [facility] (NA, K, CL, CO2, GLUCOSE, Medica l Branch BUN, CREATININE, CA) SEDIMENTATION RATE 2022-09-07 12:09:00 [facility] CBC WITH DIFF 2022-09-07 12:09:00 [facility] GLYCOSYLATED HEMOGLOBIN 2022-09-07 12:09:00 [facility] (A1C) [facility] CINDY AURIS 2022-09-07 11:20:00 [facility] SURVEILLANCE BY PCR [facility] (INFECTION CONTROL PURPOSES) CONSULT CLINICAL CASE 2022-03-29 13:04:50 Jefferson Henry [facility] MANAGEMENT (RN/SW) SARS-COV-2, FLU A/B, RSV 2022-03-29 00:39:00 Fern Andrews [facility] CORONAVIRUS, COVID-19, 2022-03-29 00:39:00 Fern Andrews [facility] RENU CONSULT CLINICAL CASE 2022-03-29 00:22:[address] [facility] MANAGEMENT (RN/SW) E CTA CHEST AORTA 2022-03-28 19:56:42 [facility] ABDOMEN-PELVIS W 2022-03-28 19:56:42 Laura Martinez [facility] CONTRAST - AORTA URINE CULTURE 2022-03-28 18:28:00 [facility] 2022-03-28 17:17:00 [facility] 2022-03-28 17:17:00 [facility] 2022-03-28 17:17:00 [facility] MICROSCOPIC-REFLEX BASIC METABOLIC PANEL 2022-03-28 16:33:00 Laura Martinez [facility] CBC/DIFF 2022-03-28 16:33:00 [facility] CBC 2022-03-28 16:33:00 [facility] CONSULT CLINICAL CASE 2022-03-28 14:59:00 Laura [facility] MANAGEMENT (RN/SW) URINE CULTURE 2022-03-04 14:01[facility]00 [facility]/ REFLEX 2022-03-04 14:01[facility]00 [facility] POTASSIUM 2022-03-04 13:56:00 [facility]LO[facility] 2022-03-04 13:55:00 [facility] 12-LEAD 2022-03-04 12:13:43 [facility] SARS-COV2/INFLUENZA/RSV 2022-03-04 11:16:00 [facility] BLOOD GAS, VENOUS 2022-03-04 11:10:00 [facility]T [facility] & AUTO 2022-03-04 11:09:00 [facility] DIFFERENTIAL [facility] LACTIC ACID, VENOUS 2022-03-04 11:09:00 [facility] COMPREHENSIVE METABOLIC 2022-03-04 11:09:00 [facility] PANEL [facility] PROTHROMBIN TIME/INR 2022-03-04 11:09:00 [facility] APTT 2022-03-04 11:09:00 [facility] CBC W/PLT COUNT & AUTO 2022-03-04 11:09:00 [facility] DIFFERENTIAL [facility] BLOOD CULTURE 2022-03-04 11:08:00 [facility] EKG-SCANNED 2022-03-04 00:00:00 [facility] CONSULT CLINICAL CASE 2022-01-03 06:54:11 Mitch Higgins [facility] MANAGEMENT (RN/SW) CT HEAD W/O CONTRAST 2022-01-03 05:56:00 Mitch Higgins [place] [id number] LEAD EKG 2022-01-03 04:34:10 Bouchra [facility] BASIC METABOLIC PANEL (8) 2021-11-21 22:16:00 KikeJohn mandel CBC WITH 2021-11-15 02:25:00 KikeJohn h DIFFERENTIAL/PLATELET COMPREHENSIVE METABOLIC 2021-11-15 02:25:00 KikeJohn is [facility] PANEL(14) URINE 2021-11-08 13:20:00 OnwNelda mitchell [facility] CULTURE,COMPREHENSIVE RESULT 2021-11-08 13:20:00 [facility] CBC WITH 2021-10-25 08:36:00 KikeJohn h DIFFERENTIAL/PLATELET COMPREHENSIVE METABOLIC 2021-10-25 08:36:00 KikeJohn is Health PANEL(14) URINALYSIS, COMPLETE W/ 2021-10-18 10:16:00 [facility] MICROSCOPIC W/ RFLX TO URINE CULTURE MICROSCOPIC EXAMINATION 2021-10-18 10:16:00 [facility]GoMichaelMart[facility] AFF READ PPD INTERDERMAL 2021-10-18 00:00:00 ProviderCosmo [facility] TEST Med 30 EXTRACTION 2021-09-23 08:15:00 [place] LIMIT ORAL EVAL PROBLM 2021-09-23 08:15:00 Aaliyah [facility] FOCUS 30 INTRAORAL PERIAPICAL 2021-09-23 08:15:00 Aaliyah Spring [facility] FIRST F CHEMISTRY PROFILE 2021-09-07 10:31:00 KikeJohn lth TSH 2021-09-07 10:31:00 KikeJohn mandel h CBC WITH 2021-09-07 10:31:00 KikeJohn h DIFFERENTIAL/PLATELET COMPREHENSIVE METABOLIC 2021-09-07 10:31:00 [facility] PANEL(14) POC GLUCOSE-AFFILIATE 2021-08-23 19:37:00 ProviderManan [facility] with [facility] MANUALLY ENTERED Med CBC W/PLT COUNT & AUTO 2021-08-23 03:42:00 Farrukh Haile [facility] BASIC METABOLIC PANEL 2021-08-23 03:42:00 [facility] 2021-08-23 03:42:00 [facility] 2021-08-23 03:42:00 [facility] W/[facility]T [facility] & AUTO 2021-08-23 03:42:00 Farrukh Haile [facility] CBC W/PLT COUNT & AUTO 2021-08-22 06:06:00 Farrukh Haile [facility] BASIC METABOLIC PANEL 2021-08-22 06:06:00 [facility] 2021-08-22 06:06:00 [facility] 2021-08-22 06:06:00 [facility] W/PLT COUNT & AUTO 2021-08-22 06:06:00 Farrukh Haile [facility] CBC W/PLT COUNT & AUTO 2021-08-21 05:47:00 Farrukh Haile [facility] BASIC METABOLIC PANEL 2021-08-21 05:47:00 [facility] 2021-08-21 05:47:00 Farrukh Haile [facility] PHOSPHORUS 2021-08-21 05:47:00 [facility] W/[facility]T COUNT & AUTO 2021-08-21 05:47:00 Farrukh Haile [facility] CBC W/PLT COUNT & AUTO 2021-08-20 03:40:00 Farrukh Haile [facility] BASIC METABOLIC PANEL 2021-08-20 03:40:00 [facility]UM 2021-08-20 03:40:00 [facility] 2021-08-20 03:40:00 Navin [facility] CBC W/PLT COUNT & AUTO 2021-08-20 03:40:00 [facility] W/[facility]T COUNT & AUTO 2021-08-19 03:43:00 Navin [facility] BASIC METABOLIC PANEL 2021-08-19 03:43:00 Navin [facility] MAGNESIUM 2021-08-19 03:43:00 Navin [facility] PHOSPHORUS 2021-08-19 03:43:00 Navin [facility] CBC W/PLT COUNT & AUTO 2021-08-19 03:43:00 Navin [facility] CBC W/PLT COUNT & AUTO 2021-08-18 03:35:00 Navin [facility] BASIC METABOLIC PANEL 2021-08-18 03:35:00 Navin [facility] MAGNESIUM 2021-08-18 03:35:00 Navin [facility] PHOSPHORUS 2021-08-18 03:35:00 Navin [facility] CBC W/PLT COUNT & AUTO 2021-08-18 03:35:00 Navin [facility] CBC W/PLT COUNT & AUTO 2021-08-17 16:35:00 Julieta Pereira [facility] C-REACTIVE PROTEIN 2021-08-17 16:35:00 Julieta Pereira [facility] CBC W/PLT COUNT & AUTO 2021-08-17 16:35:00 Julieta Pereira [facility] CTA CHEST,ABDOMEN & 2021-08-17 15:49:00 Julieta Pereira [facility] PELVIS - FOR DISSECTION Center URINALYSIS W/ REFLEX 2021-08-17 14:48:00 Julieta Pereira [facility] URINE CULTURE Center XR CHEST 1 VIEW PORTABLE 2021-08-17 12:39:00 Pereira [facility] / BEDSIDE Center SARS-COV2/RT-PCR ([facility] & 2021-08-17 11:37:00 Pereira [facility] REF LABS) Center BLOOD CULTURE 2021-08-17 11:14:00 [facility] CBC W/PLT COUNT & AUTO 2021-08-17 11:06:00 [facility] DIFFERENTIAL Center COMPREHENSIVE METABOLIC 2021-08-17 11:06:00 [facility] PANEL Center LACTIC ACID, VENOUS 2021-08-17 11:06:00 [facility] CBC W/PLT COUNT & AUTO 2021-08-17 11:06:00 [facility] PT/APTT 2021-08-17 11:04:00 [facility] HIGH SENSITIVITY TROPONIN 2021-08-17 11:04:00 Pereira [facility] I [place] B-TYPE NATRIURETIC FACTOR 2021-08-17 11:04:00 [facility] (BNP) Center ABORH, MANUAL 2021-08-17 11:04:00 [facility] CRITICAL CARE 2021-08-17 10:17:35 [facility] ECG 12-LEAD 2021-08-17 10:15:33 Unknown, Hl7 [facility] ECG 12-LEAD 2021-08-17 10:15:33 [facility] POC GLUCOSE-AFFILIATE 2021-08-17 06:59:00 Provider, [facility] [employer] MANUALLY ENTERED Med XRAY CHEST 1 VIEW - TB 2021-08-17 01:20:00 [facility] SCREEN (AFFLIATE) EKG-SCANNED 2021-08-17 00:00:00 Provider, Default [facility] INSURANCE CORRESPONDENCE 2021-07-26 06:01:00 Doctor Unassigned, [facility] SARS-COV2/RT-PCR ([facility] & 2020-10-16 04:49:00 Kalekh Vinita, I [facility] REF LABS) [facility] CBC W/PLT COUNT & AUTO 2020-10-16 04:42:00 Lainey [facility] DIFFERENTIAL [place] CBC W/PLT COUNT & AUTO 2020-10-16 04:42:00 [facility] DIFFERENTIAL [place] CBC W/PLT COUNT & AUTO 2020-10-11 04:52:00 [facility] DIFFERENTIAL [facility] BASIC METABOLIC PANEL (7) 2020-10-11 04:52:00 Shawn Eli [facility] MAGNESIUM 2020-10-11 04:52:00 [facility] HEPAT[facility] FUN[facility] PANEL 2020-10-11 04:52:00 [facility] CBC W/PLT COUNT & AUTO 2020-10-11 04:52:00 [facility] ECG 12-LEAD 2020-10-10 09:15:19 [facility] ECG 12-LEAD 2020-10-10 09:15:19 Unknown, Hl7 Doctor [facility] SARS-COV2/RT-PCR ([facility] & 2020-10-09 04:53:00 Shiekh Leeanneeh, I [facility] REF LABS) [facility] BASIC METABOLIC PANEL (7) 2020-10-09 04:53:00 Shawn Eli [facility] POTASSIUM 2020-10-07 14:04:00 [facility] CBC (HEMOGRAM ONLY) 2020-10-06 05:35:00 [facility] BASIC METABOLIC PANEL (7) 2020-10-06 05:35:00 Shawn Eli [facility] MAGNESIUM 2020-10-06 05:35:00 [facility], [facility] PHOSPHORUS 2020-10-06 05:35:00 [facility] HEPATIC FUNCTION PANEL 2020-10-06 05:35:00 [facility] CBC (HEMOGRAM ONLY) 2020-10-03 06:29:00 [facility] BASIC METABOLIC PANEL (7) 2020-10-03 06:29:00 Shawn Eli [facility] MAGNESIUM 2020-10-03 06:29:00 [facility] SARS-COV2/RT-PCR ([facility] & 2020-10-03 06:21:00 [facility], I [facility] REF LABS) [facility] CT CHEST FOR PULMONARY 2020-10-02 15:10:00 [facility] EMBOLUS [facility] PREPARE LEUKO-REDUCED RBC 2020-10-01 23:54:00 [facility] Shawn Talamantes [facility] TROPONIN I 2020-10-01 05:46:00 [facility] D-DIMER 2020-10-01 05:46:00 [facility] B-TYPE NATRIURETIC FACTOR 2020-10-01 05:46:00 [facility] (BNP) [facility] CBC W/PLT COUNT & AUTO 2020-10-01 04:43:00 [facility], [facility] DIFFERENTIAL [facility] CBC W/PLT COUNT & AUTO 2020-10-01 04:43:00 [facility], [facility] DIFFERENTIAL [facility] BASIC METABOLIC PANEL (7) 2020-10-01 04:42:00 Shawn Eli [facility] MAGNESIUM 2020-10-01 04:42:00 [facility], [facility] XR CHEST 1 VIEW PORTABLE 2020-09-30 18:46:00 Romario Vinita, ANDREW I [facility] / BEDSIDE [facility] ECG 12-LEAD 2020-09-30 18:37:21 [facility], [facility] ECG 12-LEAD 2020-09-30 18:37:21 Unknown, Hl7 Doctor [facility] TRANSFUSE LEUKO-REDUCED 2020-09-30 18:25:00 [facility], [facility] RED BLOOD CELLS [facility] TRANSFUSE LEUKO-REDUCED 2020-09-30 10:20:00 [facility], [facility] RED BLOOD CELLS [facility] ABORH, MANUAL 2020-09-30 08:26:00 [facility], [facility] CBC (HEMOGRAM ONLY) 2020-09-30 06:07:00 [facility] BASIC METABOLIC PANEL (7) 2020-09-30 06:07:00 Shawn Eli [facility] MAGNESIUM 2020-09-30 06:07:00 [facility], [facility] PREALBUMIN 2020-09-25 08:46:00 [facility] Leeanne, [facility] BASIC METABOLIC PANEL (7) 2020-09-24 05:29:00 Hernandez, [facility] CBC (HEMOGRAM ONLY) 2020-09-24 05:29:00 Hernandez, [facility] BASIC METABOLIC PANEL (7) 2020-09-23 08:46:00 Hernandez, [facility] CBC (HEMOGRAM ONLY) 2020-09-23 08:46:00 Hernandez, [facility] HEMOGLOBIN AND HEMATOCRIT 2020-09-22 11:55:00 Hernandez, [facility] VITAMIN B12 AND FOLATE 2020-09-22 11:55:00 Hernandez, [facility] IRON, TIBC, % SAT. 2020-09-22 11:55:00 Hernandez, [facility] (WITHOUT FERRITIN) [place] FERRITIN 2020-09-22 11:55:00 Hernandez, [facility] BASIC METABOLIC PANEL (7) 2020-09-22 03:30:00 Hernandez, [facility] CBC (HEMOGRAM ONLY) 2020-09-22 03:30:00 Hernandez, [facility] BLOOD CULTURE 2020-09-21 22:20:00 Hernandez, [facility] BLOOD CULTURE 2020-09-21 18:26:00 Hernandez, [facility] CBC (HEMOGRAM ONLY) 2020-09-21 03:40:00 Hernandez, [facility] BASIC METABOLIC PANEL (7) 2020-09-21 03:40:00 Hernandez, [facility] BLOOD CULTURE 2020-09-20 09:02:00 Hernandez, [facility] CBC W/PLT COUNT & AUTO 2020-09-20 09:02:00 Hernandez, [facility] BASIC METABOLIC PANEL (7) 2020-09-20 09:02:00 Hernandez Miladis Still [facility] CBC W/PLT COUNT & AUTO 2020-09-20 09:02:00 Hernandez, Miladis Still [facility] DIFFERENTIAL Center XR CHEST 1 VIEW PORTABLE 2020-09-19 06:54:00 Damari Estrada [facility] / BEDSIDE [facility] BLOOD CULTURE 2020-09-19 03:48:00 Sean Damari [facility] SARS-COV2/RT-PCR ([facility] & 2020-09-19 03:48:00 Damari Estrada [facility] REF LABS) [facility] URINE CULTURE 2020-09-19 03:48:00 Estrada Damari [facility] CBC (HEMOGRAM ONLY) 2020-09-19 03:48:00 Damari Estrada [facility] BASIC METABOLIC PANEL (7) 2020-09-19 03:48:00 Damari Estrada [facility] URINALYSIS W/ REFLEX 2020-09-19 03:48:00 Damari Estrada [facility] URINE CULTURE [facility] NEEDLE EMG, 4 EXTREMITY 2020-09-15 10:45:00 Bhavana Estrada [facility] Farrukh [place] MAGNESIUM 2020-09-15 03:42:00 Can [facility] PHOSPHORUS 2020-09-15 03:42:00 Can [facility] BASIC METABOLIC PANEL (7) 2020-09-15 03:42:00 Dania [facility] CBC (HEMOGRAM ONLY) 2020-09-15 03:41:00 [facility] WITH & 2020-09-14 19:25:00 Damari Estrada [facility] WITHOUT IV CONTRAST [facility] CBC (HEMOGRAM ONLY) 2020-09-14 04:48:00 [facility]UM 2020-09-14 04:48:00 Can [facility] PHOSPHORUS 2020-09-14 04:48:00 Dania [facility] URINALYSIS W/ REFLEX 2020-09-14 03:40:00 Damari Estrada [facility] URINE CULTURE [facility] BLOOD CULTURE 2020-09-13 17:30:00 Kayleen Maldonado [facility] MR THORACIC SPINE WITH & 2020-09-13 14:12:00 Damari Estrada [facility] WITHOUT IV CONTRAST [facility] MR LUMBAR SPINE WITH & 2020-09-13 14:12:00 Damari Estrada [facility] WITHOUT IV CONTRAST [facility] CT BRAIN WITHOUT IV 2020-09-13 11:50:00 Kayleen Maldonado [facility] CONTRAST [facility] CBC (HEMOGRAM ONLY) 2020-09-13 04:22:00 Dania [facility] MAGNESIUM 2020-09-13 04:22:00 Dania [facility] BASIC METABOLIC PANEL (7) 2020-09-13 04:22:00 Dania North I [facility] PHOSPHORUS 2020-09-13 04:22:00 Dania [facility] CBC (HEMOGRAM ONLY) 2020-09-12 04:51:00 Dania [facility] MAGNESIUM 2020-09-12 04:51:00 Dania [facility] BASIC METABOLIC PANEL (7) 2020-09-12 04:51:00 Dania North I [facility] PHOSPHORUS 2020-09-12 04:51:00 Dania [facility] CBC (HEMOGRAM ONLY) 2020-09-11 03:31:00 Dania [facility] MAGNESIUM 2020-09-11 03:31:00 Dania [facility] TROPONIN I 2020-09-11 03:31:00 Damari Estrada [facility] BASIC METABOLIC PANEL (7) 2020-09-11 03:31:00 Dania [facility] LACTIC ACID, ARTERIAL 2020-09-11 03:31:00 SterlingDionte [facility] BASIC METABOLIC PANEL (7) 2020-09-10 15:21:00 Damari Estrada [facility] CTA CHEST,ABDOMEN & 2020-09-10 13:19:00 Kayleen Maldonado [facility] PELVIS - FOR DISSECTION [facility] TROPONIN I 2020-09-10 09:12:00 [facility] LACT[facility], VENOUS 2020-09-10 03:43:00 [facility] TROPONIN I 2020-09-10 03:43:00 [facility] SARS-[facility]OV2/RT-[facility] ([facility] & 2020-09-10 02:50:00 Dania [facility] REF LABS) [facility] ECG 12-LEAD 2020-09-10 02:14:53 Wilfrido [facility] ECG 12-LEAD 2020-09-10 02:14:53 Unknown, Hl7 [facility] BLOOD CULTURE 2020-09-10 02:00:00 [facility] CBC W/PLT COUNT & AUTO 2020-09-10 02:00:00 [facility] LACTIC ACID, VENOUS 2020-09-10 02:00:00 [facility] COMPREHENSIVE METABOLIC 2020-09-10 02:00:00 [facility] PROTHROMBIN TIME/INR 2020-09-10 02:00:00 [facility] APTT 2020-09-10 02:00:00 [facility] URINALYSIS W/ MICROSCOPIC 2020-09-10 02:00:00 Patito [facility] TROPONIN I 2020-09-10 02:00:00 [facility] CBC W/PLT COUNT & AUTO 2020-09-10 02:00:00 [facility] DIFFERENTIAL [facility] BLOOD CULTURE 2020-09-10 01:59:00 [facility] CT BRAIN WITHOUT IV 2020-09-10 01:17:00 [facility] CONTRAST [facility] CT CHEST WITHOUT IV 2020-09-10 01:17:00 [facility] CONTRAST [facility] CT ABDOMEN/PELVIS WITHOUT 2020-09-10 01:17:00 Patito Anna [facility] IV CONTRAST [facility] REPORT OF PROCEDURE - 2020-09-09 00:00:00 Hang [facility] ENDOSCOPY SCAN Scanning Center [id number] 2020-08-17 00:00:[address] [facility] [id number] 2020-07-21 00:00:[address] [facility] [id number] 2020-07-19 00:00:[address] [facility] [id number] 2020-07-16 00:00:[address] [facility] [id number] 2020-07-15 00:00:[address] [facility] [id number] 2020-07-14 00:00:00 [facility] [id number] 2020-07-01 00:00:00 [facility] [id number] 2020-07-01 00:00:00 [facility] [id number] 2020-07-01 00:00:00 [facility] [id number] 2020-06-25 00:00:00 [facility]on[facility]Health [facility] [id number] 2020-06-21 00:00:[address] [facility] [id number] 2020-06-21 00:00:[address] [facility] [id number] 2020-06-21 00:00:[address] [facility] [id number] 2020-06-21 00:00:[address] [facility] [id number] 2020-06-21 00:00:00 [facility]Health [facility] [id number] 2020-06-21 00:00:00 [facility] [id number] 2020-06-19 00:00:[address] 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 Chest Dissection [facility] Plan of Care Planned Activity Planned Date Details Comments Source Future Scheduled 2023-02-24 INFLUENZA VACCINE (Season [facility] 00:00:00 Ended) [code = INFLUENZA Med ical Center VACCINE (Season Ended)] Future Scheduled 2023-02-24 Influenza Vaccine (#1) [facility] [code = Influenza Vaccine Me dical Center (#1)] Future Scheduled 2023-02-24 Influenza Vaccine (#1) [facility] 00:00:00 [code = Influenza Vaccine Me dical Center (#1)] Future Scheduled 2023-02-24 Influenza Vaccine (#1) [facility] 00:00:00 [code = Influenza Vaccine Me dical Center (#1)] Future Scheduled 2022-08-[address] [facility] 00:00:00 Counseling and Screening Med ical Center (12+) [code = Tobacco Cessation Counseling and Screening (12+)] Future Scheduled 2022-08-[address] [facility] 00:00:00 Counseling and Screening Med ical Center (12+) [code = Tobacco Cessation Counseling and Screening (12+)] Future Scheduled 2022-08-[address] [facility] Test 00:00:00 Counseling and Screening Med ical Center (12+) [code = Tobacco Cessation Counseling and Screening (12+)] Future Scheduled 2022-08-[address] [facility] 00:00:00 Counseling and Screening Med ical Center (12+) [code = Tobacco Cessation Counseling and Screening (12+)] Future Scheduled 2022-08-[address] [facility] 00:00:00 Counseling and Screening Med ical Center (12+) [code = Tobacco Cessation Counseling and Screening (12+)] Future Scheduled 2022-08-[address] [facility] 00:00:00 Counseling and Screening Med ical Center (12+) [code = Tobacco Cessation Counseling and Screening (12+)] Future Scheduled 2022-08-[address] [facility] 00:00:00 Counseling and Screening Med ical Center (12+) [code = Tobacco Cessation Counseling and Screening (12+)] Future Scheduled 2022-08-[address] [facility] 00:00:00 Counseling and Screening Med ical Center (12+) [code = Tobacco Cessation Counseling and Screening (12+)] Future Scheduled 2022-06-[address] [facility] 00:00:00 (12+) [code = DEPRESSION Med ical Center SCREENING (12+)] Future Scheduled 2022-06-[address] [facility] 00:00:00 (12+) [code = DEPRESSION Med ical Center SCREENING (12+)] Future Scheduled 2022-06-[address] [facility] 00:00:00 (12+) [code = DEPRESSION Med ical Center SCREENING (12+)] Future Scheduled 2022-06-[address] [facility] 00:00:00 (12+) [code = DEPRESSION Med ical Center SCREENING (12+)] Future Scheduled 2022-06-[address] [facility] 00:00:00 (12+) [code = DEPRESSION Med ical Center SCREENING (12+)] Future Scheduled 2022-06-[address] [facility] 00:00:00 (12+) [code = DEPRESSION Med ical Center SCREENING (12+)] Future Scheduled 2022-06-[address] [facility] 00:00:00 (12+) [code = DEPRESSION Med ical Center SCREENING (12+)] Future Scheduled 2022-03-26 IMM Influenza [facility] 00:[facility]:00 (>/= 19 yrs) [code = IMM Influenza Seasonal (>/= 19 yrs)] Future Scheduled 2022-03-26 [facility]MM Influenza [facility] 00:00:00 (>/= 19 yrs) [code = IMM Influenza Seasonal (>/= 19 yrs)] Future Scheduled 2022-03-26 IMM [facility]enza [facility] 00:00:00 (>/= 19 yrs) [code = IMM Influenza Seasonal (>/= 19 yrs)] Future Scheduled 2022-02-24 INFLUENZA VACCINE (#1) [facility]:00[facility]00 [code = INFLUENZA VACCINE Me dical Center (#1)] Future Scheduled 2022-02-24 INFLUENZA VACCINE (#1) [facility] 00:00:00 [code = INFLUENZA VACCINE Me dical Center (#1)] Future Scheduled 2022-02-24 INFLUENZA VACCINE (#1) [facility] 00:00:00 [code = INFLUENZA VACCINE Me dical Center (#1)] Future Scheduled 2022-02-24 INFLUENZA VACCINE (#1) [facility] 00:00:00 [code = INFLUENZA VACCINE Me dical Center (#1)] Future Scheduled 2021-10-20 PNEUMOCOCCAL VACCINE 0-[address] [facility] Test 00:00:00 YRS (2 - PCV) [code = Medica l Center PNEUMOCOCCAL VACCINE 0-64 YRS (2 - PCV)] Future Scheduled 2021-10-20 PNEUMOCOCCAL VACCINE 0-[address] [facility] Test 00:00:00 YRS (2 - PCV) [code = Medica l Center PNEUMOCOCCAL VACCINE 0-64 YRS (2 - PCV)] Future Scheduled 2021-10-20 PNEUMOCOCCAL VACCINE 0-[address] [facility] Test 00:00:00 YRS (2 - PCV) [code = Medica l Center PNEUMOCOCCAL VACCINE 0-64 YRS (2 - PCV)] Future Scheduled 2021-10-20 PNEUMOCOCCAL VACCINE 0-[address] [facility] Test 00:00:00 YRS (2 - PCV) [code = Medica l Center PNEUMOCOCCAL VACCINE 0-64 YRS (2 - PCV)] Future Scheduled 2021 Lipid panel (procedure) [facility] 00:00:00 [code = [id number]] Medical Ce nter Future Scheduled 2021 Lipid panel (procedure) [facility] 00:00:00 [code = [id number]] Medical Ce nter Future Scheduled 2021 Lipid panel (procedure) [facility] 00:00:00 [code = [id number]] Medical Ce nter Future Scheduled 2021 Lipid panel (procedure) [facility] 00:00:00 [code = [id number]] Medical Ce nter Future Scheduled 2021 Lipid panel (procedure) [facility] 00:00:00 [code = [id number]] Medical Ce nter Future Scheduled 2021 Lipid panel (procedure) [facility] 00:00:00 [code = [id number]] Medical Ce nter Future Scheduled 2021 Lipid panel (procedure) [facility] 00:00:00 [code = [id number]] Medical Ce nter Future Scheduled 2021 Lipid panel (procedure) [facility] 00:00:00 [code = [id number]] Medical Ce nter Future Scheduled 2021-06-[address] [facility] 00:00:00 (12+) [code = DEPRESSION [facility] Center SCREENING (12+)] Future Scheduled 2021-05-11 COVID-19 VACCINE (3 - [facility]:00 Booster for Pfizer Medical C enter series) [code = COVID-19 VACCINE (3 - Booster for Pfizer series)] Future Scheduled 2021-05-11 COVID-19 VACCINE (3 - [facility] 00:00:00 Booster for Pfizer Medical C enter series) [code = COVID-19 VACCINE (3 - Booster for Pfizer series)] Future Scheduled 2021-05-11 COVID-19 VACCINE (3 [facility]00 Booster for Pfizer Medical C enter series) [code = COVID-19 VACCINE (3 - Booster for Pfizer series)] Future Scheduled 2021-05-11 COVID-19 VACCINE (3 [facility] 00[facility]:00 Booster for Pfizer Medical C enter series) [code = COVID-19 VACCINE (3 - Booster for Pfizer series)] Future Scheduled 2021-03-26 IMM Influenza Seasonal [facility] 00:00:00 Mar to August (>/= 19 yrs) [code = IMM Influenza Seasonal Mar to August (>/= 19 yrs)] Future Scheduled 2021-02-24 INFLUENZA VACCINE (#1) [facility]00 [code = INFLUENZA VACCINE [facility] (#1)] Future Scheduled 2021-02-03 COVID-19 VACCINE (3 - [facility] 00:00:00 Booster for Pfizer Medical C enter series) [code = COVID-19 VACCINE (3 - Booster for Pfizer series)] Future Scheduled 2021-02-03 COVID-19 VACCINE (3 - [facility] 00:00:00 Booster for Pfizer Medical C enter series) [code = COVID-19 VACCINE (3 - Booster for Pfizer series)] Future Scheduled 2021-02-03 COVID-19 VACCINE (3 - [facility] 00[facility]:00 Booster for Pfizer Medical C enter series) [code = COVID-19 VACCINE (3 - Booster for Pfizer series)] Future Scheduled 2021-02-03 COVID-19 VACCINE (3 - [facility] 00:00:00 Booster for Pfizer Medical C enter series) [code = COVID-19 VACCINE (3 - Booster for Pfizer series)] Future Scheduled 2020-06-[address] [facility] 00:00:00 (12+) [code = DEPRESSION [facility] SCREENING (12+)] Future Scheduled 2006 Lipid panel (procedure) [facility] 00:00:00 [code = 59721137] Medical Ce nter Future Scheduled 2005 DTAP/TDAP/TD VACCINES ([address] [facility] 00:00:00 - Tdap) [code = Medical Cent er DTAP/TDAP/TD VACCINES (1 - Tdap)] Future Scheduled 2005 DTAP/TDAP/TD VACCINES ([address] [facility] 00:00:00 - Tdap) [code = Medical Cent er DTAP/TDAP/TD VACCINES (1 - Tdap)] Future Scheduled 2005 DTAP/TDAP/TD VACCINES ([address] [facility] 00:00:00 - Tdap) [code = Medical Cent er DTAP/TDAP/TD VACCINES (1 - Tdap)] Future Scheduled 2005 DTAP/TDAP/TD VACCINES ([address] [facility] 00:00:00 - Tdap) [code = Medical Cent er DTAP/TDAP/TD VACCINES (1 - Tdap)] Future Scheduled 2005 DTAP/TDAP/TD VACCINES ([address] [facility] 00:00:00 - Tdap) [code = Medical Cent er DTAP/TDAP/TD VACCINES (1 - Tdap)] Future Scheduled 2005 DTAP/TDAP/TD VACCINES ([address] [facility] 00:00:00 - Tdap) [code = Medical Cent er DTAP/TDAP/TD VACCINES (1 - Tdap)] Future Scheduled 2005 DTAP/TDAP/TD VACCINES ([address] [facility] 00:00:00 - Tdap) [code = Medical Cent er DTAP/TDAP/TD VACCINES (1 - Tdap)] Future Scheduled 2005 DTAP/TDAP/TD VACCINES ([address] [facility] 00:00:00 - Tdap) [code = Medical Cent er DTAP/TDAP/TD VACCINES (1 - Tdap)] Future Scheduled 2005 DTAP/TDAP/TD VACCINES ([address] [facility] 00:00:00 - Tdap) [code = Medical Cent er DTAP/TDAP/TD VACCINES (1 - Tdap)] Future Scheduled 2004 HEPATITIS C [facility]CRE[facility]ING [facility] 00:00[facility]00 [code = HEPATITIS C Medical Center SCREENING] Future Scheduled 2004 HEPATITIS C [facility]CRE[facility] 00:00:00 [code = HEPATITIS C Medical Center SCREENING] Future Scheduled 2004 HEPATITIS C [facility]CRE[facility] 00:00:00 [code = HEPATITIS C Medical Center SCREENING] Future Scheduled 2004 HEPATITIS C [facility] 00:00:00 [code = HEPATITIS C Medical Center SCREENING] Future Scheduled 2004 HEPATITIS C [facility] 00:00:00 [code = HEPATITIS C Medical Center SCREENING] Future Scheduled 2004 HEPATITIS C [facility] 00:00:00 [code = HEPATITIS C Medical Center SCREENING] Future Scheduled 2004 HEPATITIS C [facility] 00:00:00 [code = HEPATITIS C Medical Center SCREENING] Future Scheduled 2004 HEPATITIS C [facility] 00:00:00 [code = HEPATITIS C Medical Center SCREENING] Future Scheduled 2004 HEPATITIS C [facility] 00:00:00 [code = HEPATITIS C Medical Center SCREENING] Future Scheduled [address] [facility] 00:[facility]:00 virus screening Medical Cent er (procedure) [code = 911550706] Future Scheduled [address] [facility] 00:00:00 virus screening Medical Cent er (procedure) [code = 283517068] Future Scheduled [address] [facility] 00:00:00 virus screening Medical Cent er (procedure) [code = 359313345] Future Scheduled 1998 COVID-19 VACCINE (1) [facility] 00:00:00 [code = COVID-19 VACCINE Med ical Center (1)] Future Scheduled 1998 COVID-19 Vaccine (1) [facility] 00:00:00 [code = COVID-19 Vaccine (1)] Future Scheduled 1992 PNEUMOCOCCAL VACCINE 0-[address] [facility] 00:00:00 YRS (1 of 2 - PPSV23) Medica l Center [code = PNEUMOCOCCAL VACCINE 0-64 YRS (1 of 2 - PPSV23)] Future Scheduled 1992 Imm Pneumococcal 0-64 (1 [facility] 00:00:00 - PCV) [code = Imm Pneumococcal 0-64 (1 - PCV)] Future Scheduled 1992 Imm Pneumococcal 0-64 (1 [facility] 00:00:00 - PCV) [code = Imm Pneumococcal 0-64 (1 - PCV)] Future Scheduled 1992 Imm Pneumococcal 0-64 (1 [facility] 00:00:00 - PCV) [code = Imm Pneumococcal 0-64 (1 - PCV)] Future Scheduled 1987-02-10 COVID-19 Vaccine (#1) [facility] 00:00:00 [code = COVID-19 Vaccine (#1)] Future Scheduled 1987-02-10 COVID-19 Vaccine (#1) [facility] 00:00:00 [code = COVID-19 Vaccine (#1)] Future Scheduled 1987-02-10 COVID-19 Vaccine (#1) [facility] 00:00:00 [code = COVID-19 Vaccine (#1)] Future Scheduled 1986 Fluoride Varnish [code = [facility] 00:00:00 Fluoride Varnish] Encounters Start End Encounter Admission Attending Care Care Encounter Source Date/Time Date/Time Type Type Clinicians Facility Department ID 2022-08-28 Inpatient [facility] [id number] H arris 23:00:12 Health 2022-08-22 Outpatient [facility] [id number] [place] 21:40:45 [id number] Health 2022-07-01 Outpatient [facility] [id number] [place] 14:16:41 [id number] Health 2022-06-30 Outpatient [facility] [id number] [place] 09:28:55 [id number] Health 2022-06-07 Emergency HFD HFD [id number] KENNEY - 12:43:02 [facility] ent 2022-05-05 Outpatient [facility] [id number] [place] 11:52:28 [id number] Health 2022-04-08 Outpatient [facility] [id number] [place] 11:51:21 [id number] [facility] 2022-04-06 Outpatient [facility] [id number] [place] 14:41:05 [id number] Health 2022-03-29 Emergency HFD HFD [id number] KENNEY - 08:32:25 [facility] ent 2022-03-29 Outpatient [facility] [id number] [place] 03:05:01 [id number] Health 2022-03-28 Outpatient [facility] [id number] [place] 16:49:55 Health 2022-03-23 Outpatient [facility] [id number] UT 15:27:28 [id number] [facility] 2022-03-04 Emergency HFD HFD [id number] KENNEY - 14:42:50 [facility] ent 2022-02-07 Outpatient [facility] [id number] [place] 14:17:12 [id number] Health 2022-01-25 Outpatient [facility] [id number] UT 12:21:50 [id number] [facility] 2022-01-17 Outpatient [facility] [id number] [place] 08:33:07 [id number] Health 2022-01-13 Outpatient [facility] [id number] UT 07:10:42 [id number] [facility] 2022-01-06 Outpatient [facility] [id number] [place] 13:55:12 [id number] Health 2021-07-22 Outpatient [id number] [facility] [id number] [place] 11:53:15 [id number] [facility] [place] 2021-06-28 Outpatient Brii GALLO [facility] [id number] Univers 17:30:26 BONNIE nair [facility] 2021-06-28 Outpatient Brii GALLO [facility] [id number] Univers 11:27:24 BONNIE nair [facility] 2021-06-22 Outpatient Brii GALLO [facility] [id number] Univers 09:34:56 [facility] 2021-03-31 Inpatient ER MORTON-MARILU [facility] [id number] [facility] 03:23:45 shawn SR 2020-02-15 Inpatient CAMPBELL, [facility] [id number] H arris 06:53:16 [facility] 2019-11-19 Inpatient [facility] [id number] [facility] 16:59:00 53 [facility] 2023-02-21 2023-02-21 Outpatient [facility] [id number] [place] 00:00:00 00:00:00 [facility] 2022-10-24 2022-11-02 Inpatient Reed Mack HCACL INTE.02 [id number] [facility] 23:23:00 12:12:00 08 [facility] 2022-10-31 2022-10-31 Outpatient MARU, [facility] [id number] [place] 00:00:00 00:00:00 [facility] 2022-10-26 2022-10-26 Outpatient Brii MCKINNON [facility] [id number] Univers 13:00:00 13:00:00 [facility] ity [facility] 2022-10-25 2022-10-25 [facility] [id number] Univers 00:00:00 00:00:00 [facility] 350.1.13.10 it y of CLEAR 4.2.7.2.686 [place] [id number] [address] OFFICE BUILDING 2022-10-21 2022-10-21 Orders Doctor NISH 1.2.840.114 [id number] Univers 00:00:00 00:00:00 Only Unassigned, JONATHAN 350.1.13.10 ity of [place] [facility] 4.2.7.2.686 Ramon as [phone] [facility] [address] 2022-10-03 2022-10-03 Outpatient MARU, [facility] [id number] [place] 00:00:00 00:00:00 [facility] 2022-09-28 2022-09-28 Office Ion [facility] 1.2.840.114 [id number] Univers 16:30:00 16:45:00 Visit [facility] [id number] it [place] [id number] [facility] [address] [place] OFFICE BUILDING 2022-09-28 2022-09-28 Outpatient Bri[facility] [id number] Univers 16:30:00 16:30:00 BILAL ity [facility] 2022-09-28 2022-09-28 Orders Doctor MOCK 1.2.840.114 [id number] Univers 00:00:00 00:00:00 Only Unassigned, JONATHAN 350.1.13.10 ity of [place] [facility] 4.2.7.2.686 Ramon as [phone] [facility] [address] [place] 2022-09-25 2022-09-25 Prep For [facility] 1.2.021.131 [id number] Univers 00:00:00 00:00:00 Surgery Jean JONATHAN 350.1.13.10 it y of HOSPITAL 4.2.7.2.686 Ramon as [phone] [facility] [address] 2022-09-22 2022-09-22 Outpatient JANE [facility] [id number] [place] 00:00:00 00:00:00 CLINTDiego, Health MARQUITA 2022-09-16 2022-09-16 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 [id number] Univers 08:00:00 09:20:46 BILAL ity of [facility] 2022-09-16 2022-09-16 Office Ino [facility] 1.2.840.114 [id number] Univers 08:00:00 09:20:46 Visit [facility] HEALTH 350.1.13.10 it [place] of [place] [phone] [facility] [place] [address] OFFICE BUILDING 2022-09-16 2022-09-16 Orders Doctor NISH 1.2.840.114 [id number] Univers 00:00:00 00:00:00 Only Unassigned, JONATHAN 350.1.13.10 ity of [place] [facility] 4.2.7.2.686 Ramon as [phone] [place] [address] [address] 2022-09-15 2022-09-15 Outpatient JEY, [facility] [id number] [place] [address] 00:00:00 00:00:00 [facility] 2022-09-12 2022-09-12 Transition ANCA Mckinney 1.2.840.114 [id number] Univers 00:00:00 00:00:00 of Care Miranda MACHUCA 350.1.13.10 it y of [place] [id number] [place] [address] [address] 2022-09-07 2022-09-09 Inpatient U SHELBY TORRES [facility] [id number] Univers 03:48:00 15:37:00 SHELBY TORRES ity of [facility] 2022-09-07 2022-09-09 [facility] Talha [facility] 1.2.840.1 14 [id number] Univers 03:48:00 15:37:00 Encounter Terminella, [facility] 350.1.13.1 0 ity of [place] 4.2.7.2.686 [place] [phone] ([facility]) 2022-09-06 2022-09-07 Emergency ER ANA [facility] [id number] [place] 16:26:00 02:13:00 ROULA -[id number] [facility] 2022-08-22 2022-09-01 Inpatient [facility] [id number] [place] 13:06:00 12:18:00 [facility] 2022-08-29 2022-08-29 Outpatient COH COH PIJFLCF ALU COH 00:00:00 00:00:00 [id number] 2022-08-22 2022-08-22 Emergency [facility] [id number] [place] 17:01:50 17:31:17 [facility] 2022-08-22 2022-08-22 Emergency RUDI, [facility] [id number] [place] 14:32:43 15:46:53 [facility] 2022-08-07 2022-08-16 Inpatient 1 JUANITA, [facility] [id number] [place] 15:08:00 13:55:00 [facility] 2022-08-15 2022-08-15 Inpatient [facility] [id number] [place] 02:33:26 02:33:31 [facility] 2022-08-09 2022-08-09 Inpatient FISHER, [facility] [id number] [place] 15:49:49 16:39:19 NANO [facility] 2022-08-07 2022-08-07 Emergency EZIOLISA, [facility] [id number] [place] 21:40:32 22:33:43 OBRHINAUMADAI Healt 2022-08-04 2022-08-04 Outpatient CHANA, [facility] [id number] [place] 09:30:00 09:30:00 MIRA Healt 2022-07-05 2022-07-05 Outpatient MIKAYLA, [facility] [id number] [place] 13:30:00 13:30:00 [facility] 2022-06-30 2022-06-30 Outpatient MONTOYA, [facility] [id number] [place] 10:00:00 11:37:49 [facility] 2022-06-07 2022-06-09 Emergency [place] [id number] ETELVINA 11:19:00 18:34:00 MATT 2022-06-03 2022-06-03 Outpatient JAN, [facility] [id number] UT 08:30:00 08:30:00 [facility] 2022-04-19 2022-04-19 Outpatient TITA [facility] [id number] 09:00:00 09:00:00 [facility] 2022-04-14 2022-04-14 Telephone NISH Hardy 1.2.331.117 [id number] Univers 00:00:00 00:00:00 Alin CASTILLO 350.1.13.10 [facility] 4.2.7.2.686 Ramon as [id number] [address] 2022-03-28 2022-03-29 Emergency CARL, [facility] [id number] [place] 14:27:00 16:14:00 [facility] 2022-03-28 2022-03-28 Emergency MICHELLE, [facility] [id number] [place] 19:27:50 19:58:20 [facility] 2022-03-28 2022-03-28 Emergency 1 APOLONIA [facility] [id number] [place] 14:27:00 14:27:00 , BYRON Lyons 2022-03-04 2022-03-04 Emergency ER Bicette, [facility] [id number] [facility] 10:21:00 19:10:00 [facility] 2022-03-04 2022-03-04 Emergency ER BICETTE, [facility] Emergency [id number] [facility] 10:21:00 19:10:00 [facility] 2022-03-04 2022-03-04 Emergency Bicette, [facility] [id number] [facility] 10:21:00 19:10:00 [facility] 2022-01-03 2022-01-03 Emergency SANKET, [facility] [id number] [place] 05:11:00 19:20:00 [facility] 2022-01-03 2022-01-03 Emergency MITCH HIGGINS [facility] [id number] [place] 05:51:49 05:56:53 [facility] 2021-10-25 2021-10-25 Clinical Cailin Spears [facility] [id number] [place] 00:00:00 00:00:00 Case Mgt Siri Lyons 2021-10-04 2021-10-04 Clinical Cailin Spears [facility] [id number] [place] 00:00:00 00:00:00 Case Mgt Siri Lyons 2021-10-01 2021-10-01 Clinical Cailin Spears [facility] [id number] [place] 00:00:00 00:00:00 Case Mgwallace Lyons 2021-09-29 2021-09-29 Office Coreen Rodríguez [facility] [id number] [place] 10:00:00 10:45:56 Visit Michelle Newby [facility] 2021-09-29 2021-09-29 Orders Marcos, [facility] [id number] [place] 00:00:00 00:00:00 Only Coreen [facility] 2021-08-17 2021-08-23 Emergency ER Julieta Pereira [facility] [id number] 10:19:00 18:59:00 Joao Alfaro [facility] 2021-08-17 2021-08-23 Outpatient ER [facility] Emergency [id number] [facility] 10:19:00 18:59:00 [facility] 2021-08-17 2021-08-17 Travel [facility] [id number] [facility] 00:[facility] 00:00:00 [facility] 2021-08-17 2021-08-[address] [facility] [id number] 00:00:00 00:00:00 Only [facility] 2021-07-27 2021-07-27 DANYEL Thakkar 1.2.840.114 [id number] Univers 00:00:00 00:00:00 Bonnie Hay SPECIALTY 350.1.13.10 ity of CARE [place].2.7.2.686 [place] C[place] AT [id number] Oh ubaldo VICTORIA 201 [facility] 2021-07-26 2021-07-26 Orders Doctor MOCK 1.2.840.114 [id number] Univers 00:00:00 00:00:00 Only Unassigned, JONATHAN 350.1.13.10 ity of [place] [facility] 4.2.7.2.686 Ramon as [phone] [address] 2021-07-23 2021-07-23 Outpatient R [facility] [id number] Univers 08:00:00 08:00:00 ity of [facility] 2021-07-23 2021-07-23 Outpatient R INO [facility] [id number] Univers 08:00:00 08:00:00 BILAL ity [facility] 2021-07-14 2021-07-14 Telephone NISH Morales 1.2.591.596 [id number] Univers 00:00:00 00:00:00 Yongxu JONATHAN 350.1.13.10 it y of HOSPITAL 4.2.7.2.686 Ramon as [phone] [facility] [address] [place] 2021-07-11 2021-07-11 Outpatient R LORETO [facility] [id number] Univers 00:00:00 00:00:00 RUIQING ity [facility] 2021-07-09 2021-07-09 Telephone NISH Morales 1.2.241.739 [id number] Univers 00:00:00 00:00:00 Yongxu JONATHAN 350.1.13.10 it y of HOSPITAL 4.2.7.2.686 Ramon as [id number] [facility] [address] [place] 2021-07-01 2021-07-01 Orders Doctor NISH 1.2.840.114 [id number] Univers 00:00:00 00:00:00 Only Unassigned, JONATHAN 350.1.13.10 ity of [place] HOSPITAL 4.2.7.2.686 Ramon as [id number] [facility] [address] [place] 2021-06-28 2021-06-28 Outpatient R LORETO [facility] [id number] Univers 12:00:00 12:30:11 RUIQING ity [facility] 2021-06-28 2021-06-28 Office Loreto MIBLU 1.2.840.114 [id number] Univers 12:00:00 12:30:11 Visit Ruiqing L SPECIALTY 350.1.13.10 ity [place] C[place] 4[place]2.[place].2.[place] CENTER AT [id number] Oh ubaldo VICTORIA [address] [place] [address] 2021-06-28 2021-06-28 Outpatient R LORETO [facility] [id number] Univers 12:00:00 12:00:00 RUIQING ity [facility] 2021-06-28 2021-06-28 Telephone Loreto [facility] 1.2.837.230 [id number] Univers 00:00:00 00:00:00 Beatriz L SPECIALTY 350.1.13.10 ity of C[place].2.[place] CENTER AT [phone] Oh ubaldo VICTORIA 092 [facility] 2021-06-22 2021-06-22 [facility] 1.2.840.114 [id number] Univers 08:15:00 08:30:00 Visit [facility] 350.1.13.10 it y of [place] 4.2.7.2.686 [place] [facility] [id number] [facility] PRIMARY & [address] SPECIALTY CARE 2021-06-22 2021-06-22 Outpatient R INO [facility] [id number] Univers 08:15:00 08:15:00 [facility] 2021-06-22 Telephone BRIAN Gallo 1.2.840.114 [id number] Univers 00:00:00 00:00:00 Bonnie Hay HEALTH 350.1.13.10 ity of CLINICS 4.2.7.2.686 [place] [id number] [facility] [address] 2021-06-10 2021-06-10 Outpatient Brii GALLO [facility] [id number] Univers 16:00:00 16:10:08 RENAYK ity [facility] 2021-06-10 2021-06-10 [facility] 1.2.840.114 [id number] Univers 16:00:00 16:10:08 Visit Bonnie Hay SPECIALTY 350.1.13.10 ity of CARE 4.2.7.2.686 [facility] [place] AT [id number] Oh ubaldo VICTORIA [address] [place] 2021-06-10 2021-06-10 Office Cleo [facility] 1.2.840.114 [id number] Univers 16:00:00 16:10:08 Visit Bonnie Hay SPECIALTY 350.1.13.10 ity of CARE 4.2.7.2.686 [facility] AT [phone] Oh ubaldo VICTORIA [address] [facility] 2021-06-08 2021-06-08 Outpatient [facility] [id number] Univers 10:15:00 10:15:00 BILAL ity [facility] 2021-05-27 2021-05-27 Outpatient Brii [facility] [id number] Univers 10:15:00 10:15:00 BILAL ity [facility] 2021-05-25 2021-05-25 Outpatient Bri[facility] [id number] Univers 16:45:00 16:45:00 BILAL ity [facility] 2021-05-25 2021-05-25 Outpatient Brii [facility] [id number] Univers 10:00:00 10:00:00 BILAL ity [facility] 2021-05-17 2021-05-17 [facility] [id number] [id number] Univers 00:00:00 00:00:00 Bilal HEALTH 350.1.13.10 it y of CANCER 4.2.7.2.686 [facility] - [phone] [facility] [address] 2021-05-14 2021-05-14 Outpatient Brii [facility] [id number] Univers 10:52:33 23:59:00 BILAL ity [facility] 2021-05-14 2021-05-14 [facility] 1.2.840.114 [id number] Univers 10:52:33 23:59:00 Encounter Bilal HEALTH 350.1.13.10 ity of CLEAR 4.2.7.2.686 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 Univers 15:27:52 16:21:57 [facility] SPECIALTY [id number] ity of CARE [id number] [facility] AT [phone] Oh ubaldo [place] [address] [place] 2021-05-04 2021-05-04 [facility] [id number] Univers 16:15:00 16:15:00 BILWY ity [facility] 2021-04-29 2021-04-29 [facility] [id number] Univers 11:45:00 11:45:00 BILWY ity [facility] 2021-04-15 2021-04-15 [facility] [id number] Univers 11:00:00 13:29:16 [facility] 2021-04-15 [facility] 1.2.840.114 [id number] Univers 10:20:54 13:29:16 Visit [facility] [id number] it y of [place] [id number] [facility] [phone] [facility] [address] [facility] 2021-04-15 2021-04-15 Outpatient [facility] [id number] Univers 10:45:00 10:45:00 BILWY ity [facility] 2021-04-08 2021-04-08 [facility] [id number] [facility] 13:16:00 16:11:00 Yuri 38 [facility] 2021-03-11 2021-03-11 Orders Doctor MOCK [id number] Univers 00:00:00 00:00:00 Only Unassigned, JONATHAN 350.1.13.10 ity of [facility] 4.2.7.2.686 Formerly [facility] [id number] [facility] 009 Branch 2021-02-09 2021-02-09 [address] [facility] [id number] Univers 15:00:00 15:00:[address] [facility] 2021-02-04 2021-02-04 Office [facility] [id number] Univers 15:08:33 15:38:33 [facility] 350.1.13.10 [facility] 4.2.7.2.686 [facility] [id number] [facility] & 204 [facility] 2021-02-04 2021-02-04 [address] [facility] [id number] Univers 15:30:00 15:30:00 [facility] 2021-01-27 2021-01-27 Outpatient R [facility] [id number] Univers 15:15:00 15:15:[address] [facility] 2020-09-09 2020-10-[address] [facility] [id number] [facility] [address] 23[facility]56:00 16:44:00 Encounter Ace Armstrong dorina HernandezMiladis lilly [facility] Margaret Retana Nejmudin Resjulienne 2020-09-12 2020-09-12 Inpatient HCAKW HCAKW [id number] [facility] 01:40:29 01:40:29 61 [facility] 2020-09-10 2020-09-[address] [facility] [id number] 00:00:00 00:00:00 Only [facility] 2020-09-10 2020-09-10 Travel [facility] [id number] [facility] St 00:00:00 00:00:00 [facility] 2020-09-09 2020-09-09 Emergency ER SLE Emergency [id number] SLE 23:42:00 23:42:00 2020-06-03 2020-06-06 [facility] [id number] Memoria 17:01:53 09:47:00 brii Olivia 01 l [facility] 2020-06-03 2020-06-06 Inpatient E ETELVINA SHERIDAN MED 7501 [facility]NE 11:01:00 03:47:00 TOÑO 2020-04-03 2020-04-03 Outpatient GRAIR_D SJOSE SJOSE [id number] Miller 04:50:00 04:50:00 1009 [facility] 2020-03-24 2020-03-24 Emergency Formerly [facility] [id number] Memoria 08:29:16 10:54:00 brii Olivia 00 l [facility] 2020-03-24 2020-03-24 Outpatient GRAIR_D SJOSE SJOSE [id number] Miller 10:53:00 10:53:00 0929 [facility] 2020-03-24 2020-03-24 Emergency E LORENZO SANTOS NE MHNE 7500 MHNE 03:29:00 05:54:00 2020-03-19 2020-03-19 Outpatient GRAIR_D SJOSE SJOSE [id number] Miller 10:02:00 10:02:00 0924 [facility] 2020-03-19 2020-03-19 Mae Marquez SJOSE DC - [facility] [id number] Miller 00:00:00 00:00:00 MD Elmo: [facility] [address] [place] [address] , Ph. 2020-03-11 2020-03-11 Outpatient JENNIFER [facility] [id number] [place] 00:00:00 00:00:00 [facility] 2020-02-27 2020-03-05 Inpatient HCAKW ROMMEL [id number] [facility] 04:38:00 00:13:20 44 [facility] 2020-03-04 2020-03-04 Outpatient KAMALA AL [facility] [id number] SLE 00:00:00 00:00:00 RADHA 2020-02-27 2020-02-27 Outpatient SAMIR_D GRACIE BOWMAN [id number] Miller 01:18:00 01:18:00 0903 [facility] 2020-02-27 2020-02-27 Outpatient KAMALA AL [facility] [id number] SLE 00:00:00 00:00:00 [facility] 2020-02-18 2020-02-18 Emergency ER [facility] Emergency [id number] SLE 15:26:00 15:26:00 2020-02-14 2020-02-16 Inpatient [facility] [id number] Blanco 23:22:24 13:26:00 [facility] 2020-02-15 2020-02-15 Emergency [facility] [id number] [place] 02:51:41 02:51:41 [facility] 2020-02-15 2020-02-15 Emergency VIDHYACOX MONETT [id number] Simeon 00:33:26 00:59:56 [facility] 2020-02-09 2020-02-12 Inpatient HCAKW [facility] [id number] [facility]CA 03:13:00 00:54:02 23 [facility] 2020-01-25 2020-01-28 Inpatient ETELVINA MORENO MED 7503 MARIA EUGENIA 07:39:00 15:27:00 SOFI 2020-01-24 2020-01-24 Outpatient MORGAN FORESTCHRIS ADMI [id number] [facility] 09:21:00 09:21:00 DOES_NOT 24 [facility] 2019-11-20 2019-11-20 Outpatient Ryan SHARIFA LABO [id number] [facility] 15:06:00 15:06:00 Sebastián [address] [place] [address] 2019-04-09 2019-04-[address] [facility] [id number] Simeon 14:49:54 14:49:54 Health Results Test Description Test Time Test Comments Results Result Comments Source CBC W/AUTO DIFF 2022-11-01 16:39:00 Test Item Value Reference Range Interpretation Comme nts WHITE BLOOD CELL (test code = WBC) 14.6 x10 3/uL 4.5-11.0 H RED BLOOD CELL (test code = RBC) 3.10 x10 6/uL 4.00-5.60 L HEMOGLOBIN (test code = HGB) 9.0 g/dL 12.5-16.9 L HEMATOCRIT (test code = HCT) 28.6 % 37.5-50.7 L MEAN CELL VOLUME (test code = MCV) 92.3 fL 81.0-99.0 N MEAN CELL HGB (test code = MCH) 29.0 pg 27.0-33.0 N MEAN CELL HGB CONCETRATION (test code = MCHC) 31.5 g/dL 33.0-37. 0 L RED CELL DISTRIBUTION WIDTH CV (test code = RDW) 16.7 % 11.5- 14.5 H RED CELL DISTRIBUTION WIDTH SD (test code = RDW-SD) 56.6 fL 37 .0-54.0 H PLATELET COUNT (test code = PLT) 430 x10 3/uL 150-400 H MEAN PLATELET VOLUME (test code = MPV) 10.9 fL 7.0-9.0 H NEUTROPHIL % (test code = NT%) 78.9 % 56.0-77.0 H IMMATURE GRANULOCYTE % (test code = IG%) 2.7 % 0.0-2.0 H LYMPHOCYTE % (test code = LY%) 10.3 % 14.0-32.0 L MONOCYTE % (test code = MO%) 6.6 % 4.8-9.0 N EOSINOPHIL % (test code = EO%) 1.2 % 0.3-3.7 N BASOPHIL % (test code = BA%) 0.3 % 0.0-2.0 N NUCLEATED RBC % (test code = NRBC%) 0.0 % 0-0 N NEUTROPHIL # (test code = NT#) 11.50 x10 3/uL 2.0-7.6 H IMMATURE GRANULOCYTE # (test code = IG#) 0.40 x10 3/uL 0.00-0.03 H LYMPHOCYTE # (test code = LY#) 1.51 x10 3/uL 1.0-3.8 N MONOCYTE # (test code = MO#) 0.97 x10 3/uL 0.1-0.8 H EOSINOPHIL # (test code = EO#) 0.18 x10 3/uL 0.0-0.2 N BASOPHIL # (test code = BA#) 0.04 x10 3/uL 0.0-0.2 N NUCLEATED RBC # (test code = NRBC#) 0.00 x10 3/uL 0.0-0.1 N MANUAL DIFF REQUIRED (test code = MDIFF) NO BASIC METABOLIC [id number] 17:44:00 Test Item Value Reference Range Interpretation Comments SODIUM (test code = 135 mEq/L 134-147 N NA) POTASSIUM (test code 3.6 mEq/L 3.4-5.0 N = K) CHLORIDE (test code 105 mEq/L 100-108 N = CL) CARBON DIOXIDE (test 21 mEq/l 21-33 N code = CO2) ANION GAP (test code 12 0-20 N = GAP) GLUCOSE (test code = 75 mg/dL 70-110 N GLU) BLOOD UREA NITROGEN 33 mg/dL 7-18 H (test code = BUN) GLOMERULAR 66.8 105-110 L The Glomerular FILTRATION RATE Filtration R ate is a (test code = GFR) calculated parameterbased on serum Creatinine, pat ient age and sex. GFR va luesless than 60 mL/min/ 1.73 square meters a re indicative ofCh ronic Kidney Disease. Values less than 15 mL/min/1.73squa re meters indicate Kidney failure. The calculation forGFR is based on the CKD-EPI (2020) calculat ion. This formulais race indifferent and is the recommended for bridgett for GFRby the Natio nal Kidney Foundati on for Adults.The GFR will not calculate if th e sex is unknown or if thepatient's ag e is <18 years. CREATININE (test 1.4 mg/dL 0.6-1.3 H code = CREAT) CALCIUM (test code = 9.1 mg/dL 8.0-10.5 N CA) CALCIUM [id number] 17:44:00 Test Item Value Reference Range Interpretation Comments CALCIUM IONIZED (test code = MICHAEL) 1.15 MMOL/L 1.09-1.30 N - XR ABDOMEN [id number] 11:03:00 [facility] 1985 Sex: M FAX: Gillian Barron MD [phone] Constable: St: ADM FAX: Reed Rios MD [phone] Name: JORGE GOINS [facility] : 1985 Age/S: 37/M [address] [place] [address] Unit #: [id number] Loc: G.6609 [place] [address] Phys: Gillian Ramires MD Acct: [id number] Dis Date: Status: ADM IN PHONE #: [phone] Exam Date: 10/31/2022 1007 FAX #: [phone] Reason: follow-up sbo EXAMS: CPT CODE: [id number] XR ABDOMEN 2V 62214 Location code: B2 Abdomen 2 view HISTORY: Small bowel obstruction. Comparison to 2 days prior COMMENT: The abdominal radiograph shows mildly prominent small bowel loops diffusely, measuring up to 6 cm. There is scattered gas in large bowel loops. There is no pneumatosis or mass effect. T here are no radiopaque densities noted. There are no clinically significant osseous abnormalities noted. IMPRESSION: 1. Suggestion of a partial small bowel obstruction, stable to slightly improved at 1103 Reported and signed by: Sebastián Colon M.D. CC: Gillian Ramires MD; Reed Lizama MD Technologist: David Cesar, RT(R) Trnmtrd Date/Time/By: 10/31/2022 (8972) : By: [email or web address] Orig Print D/T: S: 10/31/2022 (8038) PAGE 1 Signed ReportSED RATE [id number] 14:15:00 Test Item Value Reference Range Interpretation Comments SED RATE ALFREDERGREN (test code = 101 mm/hr 0-15 H SEDW) C REACTIVE [id number] 13:57:00 Test Item Value Reference Range Interpretation Comments C REACTIVE PROTEIN (test code = 161.0 mg/L <10.0 H CRP) COMPREHENSIVE METABOLIC [id number] 07:43:00 Test Item Value Reference Range Interpretation Comments SODIUM (test code = 138 mEq/L 134-147 N NA) POTASSIUM (test code 3.2 mEq/L 3.4-5.0 L = K) CHLORIDE (test code 104 mEq/L 100-108 N = CL) CARBON DIOXIDE (test 23 mEq/l 21-33 code = CO2) ANION GAP (test code 14 0-20 N = GAP) GLUCOSE (test code = 85 mg/dL 70-110 GLU) BLOOD UREA NITROGEN 32 mg/dL 7-18 H (test code = BUN) GLOMERULAR 66.8 105-110 L The Glomerular FILTRATION RATE Filtration R ate is a (test code = GFR) calculated parameterbased on serum Creatinin e, patient age and sex. GFR valuesless than 60 mL/min/1.73 squ are meters are ria cative ofChronic Kidne y Disease. Values less than 15 mL/min/1.73squa re meters indicate Kidney failure. The calculation for GFR is based on the CK D-EPI (2020) calculat ion. This formulais race indifferent and is the recommended for bridgett for GFRby the N [facility] Kidney Foundati on for Adults.The GFR will not calculate i f the sex is unknown or if thepatient's ag e is <18 years. CREATININE (test 1.4 mg/dL 0.6-1.3 H code = CREAT) TOTAL PROTEIN (test 7.5 g/dL 6.4-8.2 N code = PROT) ALBUMIN (test code = 2.80 g/dL 3.4-5.0 L ALB) CALCIUM (test code = 8.8 mg/dL 8.0-10.5 N CA) BILIRUBIN TOTAL 0.50 mg/dL 0.0-1.0 N (test code = BILT) SGOT/AST (test code 9 IUnit/L 15-37 L = AST) SGPT/ALT (test code < 7 IUnit/L 30-65 L = ALT) ALKALINE PHOSPHATASE 103 IUnit/L 20-125 N TOTAL (test code = ALKP) CBC W/AUTO [id number] 07:01:00 Test Item Value Reference Range Interpretation Comments WHITE BLOOD CELL (test code = 13.2 x10 3/uL 4.5-11.0 H WBC) RED BLOOD CELL (test code = 3.41 x10 6/uL 4.00-5.60 L RBC) HEMOGLOBIN (test code = HGB) 9.8 g/dL 12.5-16.9 L HEMATOCRIT (test code = HCT) 30.7 % 37.5-50.7 L MEAN CELL VOLUME (test code = 90.0 fL 81.0-99.0 N MCV) MEAN CELL HGB (test code = MCH) 28.7 pg 27.0-33.0 N MEAN CELL HGB CONCETRATION 31.9 g/dL 33.0-37.0 L (test code = MCHC) RED CELL DISTRIBUTION WIDTH CV 17.0 % 11.5-14.5 H (test code = RDW) RED CELL DISTRIBUTION WIDTH SD 56.3 fL 37.0-54.0 H (test code = RDW-SD) PLATELET COUNT (test code = 351 x10 3/uL 150-400 N PLT) MEAN PLATELET VOLUME (test code 11.2 fL 7.0-9.0 H = MPV) NEUTROPHIL % (test code = NT%) 74.5 % 56.0-77.0 N IMMATURE GRANULOCYTE % (test 2.8 % 0.0-2.0 H code = IG%) LYMPHOCYTE % (test code = LY%) 12.0 % 14.0-32.0 L MONOCYTE % (test code = MO%) 8.6 % 4.8-9.0 N EOSINOPHIL % (test code = EO%) 1.9 % 0.3-3.7 N BASOPHIL % (test code = BA%) 0.2 % 0.0-2.0 N NUCLEATED RBC % (test code = 0.0 % 0-0 N NRBC%) NEUTROPHIL # (test code = NT#) 9.80 x10 3/uL 2.0-7.6 H IMMATURE GRANULOCYTE # (test 0.37 x10 3/uL 0.00-0.03 H code = IG#) LYMPHOCYTE # (test code = LY#) 1.58 x10 3/uL 1.0-3.8 N MONOCYTE # (test code = MO#) 1.13 x10 3/uL 0.1-0.8 H EOSINOPHIL # (test code = EO#) 0.25 x10 3/uL 0.0-0.2 H BASOPHIL # (test code = BA#) 0.03 x10 3/uL 0.0-0.2 N NUCLEATED RBC # (test code = 0.00 x10 3/uL 0.0-0.1 N NRBC#) MANUAL DIFF REQUIRED (test code NO = MDIFF) - CT ABD PELVIS W/O [id number] 00:00:00 [facility] 1985 Sex: M Name: JORGE GOINS [facility] : 1985 Age/S: 37 / M [address] [place] [address] Unit #: [id number] Loc: [place] [address] Phys: Esvin Gomez MD Acct: [id number] Dis Date: Status: ADM IN PHONE #: [phone] Exam Date: 10/29/2022 1049 FAX #: [phone] Reason: SBO EXAMS: CPT CODE: [id number] CT ABD PELVIS W/O CONT [id number] PROCEDURE INFORMATION: Exam: CT Abdomen And Pelvis Without Contrast Exam date and time: 10/29/2022 10:49 AM Age: 37 years old Clinical indication: Condition or disease; Other: Sbo TECHNIQUE: Imaging protocol: Computed tomography of the abdomen and pelvis without contrast. Radiation optimization: All CT scans at this facility use at least one of these dose optimization techniques: automated exposure control; mA and/or kV adjustment per patient size (includes targeted exams where dose is matched to clinical indication); or iterative reconstruction. REPORTING DATA: Count of CT and Cardiac NM exams in prior 12 months: This patient has received 0 known CTs and 0 knowncardiac nuclear medicine studies in the 12 months prior to the current study. COMPARISON: 1. CT ABD PELVIS W/O CONT 06/21/2020 5:48 AM 2. CTA abdomen pelvis 09/06/2020 FINDINGS: Evaluation of soft tissue and vascular structures is limited secondary to lack of IV contrast. Tubes, catheters and devices:Rectal tube is identified. Lungs: Mild atelectasis at the lung bases. Diaphragm: Small hiatal hernia. Liver: No hepatic mass. Gallbladder and bile ducts: Status post cholecystectomy.. Pancreas: No peripancreatic inflammatory changes. No ductal dilation. Spleen: No splenomegaly. Adrenal glands: Unremar kable adrenal glands. Kidneys and ureters: No renal or ureteral calculi. No hydronephrosis or hydroureter. Stomach and bowel: Abnormal thickening of the hepatic flexure and proximal transverse colon suspicious for colitis. Multiple dilated fluid-filled loops of small bowel measuring up to 5 cm in diameter consistent with small-bowel obstruction point of obstruction may be in the central left upper abdomen (series 6, image 84). Appendix: No evidence of appendicitis. Intraperitoneal space: No pneumoperitoneum. Non organized fluid and fat stranding extending along the anterior lower abdominal wall towards the dome of the bladder seen best on (series 8, image 64). PAGE 1 Signed Report (CONTINUED) Name: JORGE GOINS [facility] : 1985 Age/S: 37 / M [address] [place] [address] Unit #: [id number] Loc: [place] [address] Phys: Esvin Gomez MD Acct: [id number] Dis Date: Status: ADM IN PHONE #: [phone] Exam Date: 10/29/2022 1049 FAX #: [phone] Reason: SBO EXAMS: CPT CODE: [id number] CT ABD PELVIS W/O CONT 15449 (Continued) Vasculature: Patient with known aortic dissection, a stent graft is identified within the true lumen of the abdominal aorta, the aortic dissection which is poorly visualized on this noncontrast exam. A right external iliac artery stent graft is identified. Lymph nodes: No enlarged lymph nodes. Urinary bladder: The bladder wall is thickened suspicious for cystitis. Reproductive: Unremarkable as visualized. Bones/joints: Mild degenerative changes of the spine. Left decubitus ulcer extending toward the ischium and and sacral decubitus ulcer. No evidence for cortical destruction. Inflammatory changes identified at the left greater trochanter. Soft tissues: Subcutaneous edema. IMPRESSION: 1. Findings suspicious for colitis. 2. Small-bowel obstruction point of obstruction probably left upper central abdomen maybe related to adhesions. 3. Non organized fluid identified along the lower abdominal wall towards the bladder dome correlate for history of recent surgery or procedure, cannot exclude perforation. No pneumoperitoneum. 4. Findings consistent with cystitis. 5. Sacral decubitus ulcers. at 1558 Reported and signed by: Zoey Yoder M.D. CC: Esvin Gomez MD; Reed Lizama MD Technologist:RT Jocelynn(R)(CT) CTDI: DLP: Trnscb Date/Time: 10/29/2022 (1558) [email or web address] Orig Print D/T: S: 10/29/2022 (8693) PAGE 2 Signed Report LACTIC [id number] 21:49:00 Test Item Value Reference Range Interpretation Comments LACTIC ACID (test code = LACT) 1.2 mmol/L 0.4-1.9 N CBC W/AUTO [id number] 15:26:00 Test Item Value Reference Range Interpretation Comments WHITE BLOOD CELL 15.4 x10 3/uL 4.5-11.0 H (test code = WBC) RED BLOOD CELL (test 3.73 x10 6/uL 4.00-5.60 L code = RBC) HEMOGLOBIN (test code 10.8 g/dL 12.5-16.9 L = HGB) HEMATOCRIT (test code 32.6 % 37.5-50.7 L = HCT) MEAN CELL VOLUME 87.4 fL 81.0-99.0 N (test code = MCV) MEAN CELL HGB (test 29.0 pg 27.0-33.0 N code = MCH) MEAN CELL HGB 33.1 g/dL 33.0-37.0 N CONCETRATION (test code = MCHC) RED CELL DISTRIBUTION 16.8 % 11.5-14.5 H WIDTH CV (test code = RDW) RED CELL DISTRIBUTION 54.3 fL 37.0-54.0 H WIDTH SD (test code = RDW-SD) PLATELET COUNT (test 330 x10 3/uL 150-400 N code = PLT) MEAN PLATELET VOLUME 11.0 fL 7.0-9.0 H (test code = MPV) NEUTROPHIL % (test 78.3 % 56.0-77.0 H code = NT%) LYMPHOCYTE % (test 8.0 % 14.0-32.0 L code = LY%) NEUTROPHIL # (test 12.07 x10 3/uL 2.0-7.6 H code = NT#) LYMPHOCYTE # (test 1.24 x10 3/uL 1.0-3.8 N code = LY#) MANUAL DIFF REQUIRED NO SLIDE R EVIEWED, (test code = MDIFF) CONSISTE NT WITH AUTO DIFF. IMMATURE GRANULOCYTE 4.9 % 0.0-2.0 H % (test code = IG%) MONOCYTE % (test code 7.1 % 4.8-9.0 N = MO%) EOSINOPHIL % (test 1.4 % 0.3-3.7 N code = EO%) BASOPHIL % (test code 0.3 % 0.0-2.0 N = BA%) NUCLEATED RBC % (test 0.0 % 0-0 N code = NRBC%) IMMATURE GRANULOCYTE 0.76 x10 3/uL 0.00-0.03 H # (test code = IG#) MONOCYTE # (test code 1.10 x10 3/uL 0.1-0.8 H = MO#) EOSINOPHIL # (test 0.21 x10 3/uL 0.0-0.2 H code = EO#) BASOPHIL # (test code 0.04 x10 3/uL 0.0-0.2 N = BA#) NUCLEATED RBC # (test 0.00 x10 3/uL 0.0-0.1 N code = NRBC#) BASIC METABOLIC [id number] 15:11:00 Test Item Value Reference Range Interpretation Comments SODIUM (test code = 135 mEq/L 134-147 N NA) POTASSIUM (test code 3.0 mEq/L 3.4-5.0 L = K) CHLORIDE (test code 105 mEq/L 100-108 N = CL) CARBON DIOXIDE (test 18 mEq/l 21-33 L code = CO2) ANION GAP (test code 15 0-20 N = GAP) GLUCOSE (test code = 121 mg/dL 70-110 H GLU) BLOOD UREA NITROGEN 34 mg/dL 7-18 H (test code = BUN) GLOMERULAR 61.5 105-110 L The Glomerular FILTRATION RATE Filtration R ate is a (test code = GFR) calculated parameterbased on serum Creatinine, pat ient age and sex. GFR va luesless than 60 mL/min/ 1.73 square meters a re indicative ofCh ronic Kidney Disease. Values less than 15 mL/min/1.73squa re meters indicate Kidney failure. The calculation forGFR is based on the CKD-EPI (2020) calculat ion. This formulais race indifferent and is the recommended for bridgett for GFRby the Natio nal Kidney Foundati on for Adults.The GFR will not calculate if th e sex is unknown or if thepatient's ag e is <18 years. CREATININE (test 1.5 mg/dL 0.6-1.3 H code = CREAT) CALCIUM (test code = 8.5 mg/dL 8.0-10.5 N CA) - XR ABDOMEN 1V (KUB)2022-10-28 00:00:00 [facility] 1985 Sex: M FAX: Esvin Gomez MD [phone] Constable: St: [facility] FAX: Reed Rios MD [phone] Name: JORGE GOINS [facility] : 1985 Age/S: 37/M [address] [place] [address] Unit #: [id number] Loc: [address] [address] Phys: Esvin Gomez MD Acct: [id number] Dis Date: Status: ADM IN PHONE #: [phone] Exam Date: 10/28/2022 1617 FAX #: [phone] Reason: ABD DISTENDED. EXAMS: CPT CODE: [id number] XR ABDOMEN 1V (KUB) [id number] PROCEDURE INFORMATION: Exam: XR Abdomen Exam date and time: 10/28/2022 3:49 PM Age: 37 years old Clinical indication: Other: Abd distended. TECHNIQUE: Imaging protocol: Radiologic exam of the abdomen. Views: Frontal supine view of the abdomen. 1 View. COMPARISON: CR XR ABDOMEN AP 1 V 10/24/2022 8:39 PM FINDINGS: Heart/Mediastinum: Normal size heart. Pleural spaces: Suspect minimal right pleural effusion or pleural thickening. Gastrointestinal tract: Multiple dilated gas-filled organized small-bowel loops are again present centrally along with smaller amounts of scattered colonic gas mostconsistent with distal small bowel obstruction. Organs: Surgical clips are present in the right upper quadrant consistent with previous cholecystectomy. No organomegaly, mass lesions, or suspicious calcifications in the abdomen or pelvis. Vasculature: Incompletely visualized postoperative change in the thoracic aorta and proximal abdominal aorta. Bones/joints: No acute abnormality. Soft tissues: No abnormal radiopaque densities. IMPRESSION: 1. Multiple dilated gas-filled organized small-bowel loopsare again present centrally along with smaller amounts of scattered colonic gas most consistent withdistal small bowel obstruction. 2. Suspect minimal right pleural effusion or pleural thickening. at 1711 Reported and signed by:Per Bhatt M.D. CC: Esvin Gomez MD; Reed Lizama MD Technologist: Aviva Liu RT(R) Trnscrd Date/Time/By: 10/28/2022 (1710) : By: [email or web address] Orig Print D/T: S: 10/28/2022 (1711) PAGE 1 Signed ReportBASIC METABOLIC [id number] 06:32:00 Test Item Value Reference Range Interpretation Comments SODIUM (test code = 134 mEq/L 134-147 N NA) POTASSIUM (test code 3.3 mEq/L 3.4-5.0 L = K) CHLORIDE (test code 104 mEq/L 100-108 N = CL) CARBON DIOXIDE (test 15 mEq/l 21-33 L code = CO2) ANION GAP (test code 18 0-20 N = GAP) GLUCOSE (test code = 123 mg/dL 70-110 H GLU) BLOOD UREA NITROGEN 44 mg/dL 7-18 H (test code = BUN) GLOMERULAR 41.1 105-110 L The Glomerular FILTRATION RATE Filtration R ate is a (test code = GFR) calculated parameterbased on serum Creatinine, pat ient age and sex. GFR va luesless than 60 mL/min/ 1.73 square meters a re indicative ofCh ronic Kidney Disease. Values less than 15 mL/min/1.73squa re meters indicate Kidney failure. The calculation forGFR is based on the CKD-EPI (2020) calculat ion. This formulais race indifferent and is the recommended for bridgett for GFRby the Nat nal Kidney Foundati on for Adults.The GFR will not calculate if th e sex is unknown or if thepatient's ag e is <18 years. CREATININE (test 2.1 mg/dL 0.6-1.3 H code = CREAT) CALCIUM (test code = 8.8 mg/dL 8.0-10.5 N CA) CBC W/AUTO [id number] 06:18:00 Test Item Value Reference Range Interpretation Comments WHITE BLOOD CELL (test code = 9.9 x10 3/uL 4.5-11.0 N WBC) RED BLOOD CELL (test code = 3.65 x10 6/uL 4.00-5.60 L RBC) HEMOGLOBIN (test code = HGB) 10.5 g/dL 12.5-16.9 L HEMATOCRIT (test code = HCT) 32.4 % 37.5-50.7 L MEAN CELL VOLUME (test code = 88.8 fL 81.0-99.0 N MCV) MEAN CELL HGB (test code = MCH) 28.8 pg 27.0-33.0 N MEAN CELL HGB CONCETRATION 32.4 g/dL 33.0-37.0 L (test code = MCHC) RED CELL DISTRIBUTION WIDTH CV 16.6 % 11.5-14.5 H (test code = RDW) RED CELL DISTRIBUTION WIDTH SD 54.5 fL 37.0-54.0 H (test code = RDW-SD) PLATELET COUNT (test code = 291 x10 3/uL 150-400 N PLT) MEAN PLATELET VOLUME (test code 11.0 fL 7.0-9.0 H = MPV) NEUTROPHIL % (test code = NT%) 82.3 % 56.0-77.0 H IMMATURE GRANULOCYTE % (test 0.5 % 0.0-2.0 N code = IG%) LYMPHOCYTE % (test code = LY%) 9.6 % 14.0-32.0 L MONOCYTE % (test code = MO%) 6.1 % 4.8-9.0 N EOSINOPHIL % (test code = EO%) 1.3 % 0.3-3.7 N BASOPHIL % (test code = BA%) 0.2 % 0.0-2.0 N NUCLEATED RBC % (test code = 0.0 % 0-0 N NRBC%) NEUTROPHIL # (test code = NT#) 8.15 x10 3/uL 2.0-7.6 H IMMATURE GRANULOCYTE # (test 0.05 x10 3/uL 0.00-0.03 H code = IG#) LYMPHOCYTE # (test code = LY#) 0.95 x10 3/uL 1.0-3.8 L MONOCYTE # (test code = MO#) 0.60 x10 3/uL 0.1-0.8 N EOSINOPHIL # (test code = EO#) 0.13 x10 3/uL 0.0-0.2 N BASOPHIL # (test code = BA#) 0.02 x10 3/uL 0.0-0.2 N NUCLEATED RBC # (test code = 0.00 x10 3/uL 0.0-0.1 N NRBC#) MANUAL DIFF REQUIRED (test code NO = MDIFF) [id number] 23:32:00 Test Item Value Reference Range Interpretation Comments VANCOMYCIN (test code = VANCO) 11.3 mcg/mL TSH REFLEX TO [id number] 09:03:00 Test Item Value Reference Range Interpretation Comments TSH REFLEX TO FT4 (test code = 2.13 IU/mL 0.42-5.47 N TSHREFLEX) BASIC METABOLIC [id number] 06:57:00 Test Item Value Reference Range Interpretation Comments SODIUM (test code = 136 mEq/L 134-147 N NA) POTASSIUM (test code 4.2 mEq/L 3.4-5.0 N = K) CHLORIDE (test code 108 mEq/L 100-108 N = CL) CARBON DIOXIDE (test 14 mEq/l 21-33 L code = CO2) ANION GAP (test code 19 0-20 N = GAP) GLUCOSE (test code = 74 mg/dL 70-110 N GLU) BLOOD UREA NITROGEN 60 mg/dL 7-18 H (test code = BUN) GLOMERULAR 23.9 105-110 L The Glomerular FILTRATION RATE Filtration R ate is a (test code = GFR) calculated parameterbased on serum Creatinine, pat ient age and sex. GFR va luesless than 60 mL/min/ 1.73 square meters a re indicative ofCh ronic Kidney Disease. Values less than 15 mL/min/1.73squa re meters indicate Kidney failure. The calculation forGFR is based on the CKD-EPI (2020) calculat ion. This formulais race indifferent and is the recommended for bridgett for GFRby the [facility] Foundati on for Adults.The GFR will not calculate if th e sex is unknown or if thepatient's ag e is <18 years. CREATININE (test 3.3 mg/dL 0.6-1.3 H code = CREAT) CALCIUM (test code = 7.5 mg/dL 8.0-10.5 L CA) LIPID PROFILE (CORONARY RISK)2022-10-25 06:57:00 Test Item Value Reference Range Interpretation Comments TRIGLYCERIDES (test 271 mg/dL 40-150 H code = TRIG) CHOLESTEROL (test 134 mg/dL <200 code = CHOL) CHOLESTEROL/HDL 6.54 RATIO 3.43-4.97 H RISK ASSOCIA KAR WITH RATIO (test code = CHOL/HDL RATIOS: RISK CHOLHDL) MALE FEMALE1/2 AVERAGE 3.43 3.27AVERAG E 4.97 4.442X AVERAGE 9.55 7.053X AVERAGE 23.39 11.04 NOTE THAT THE REFERENCE VALUE IS RELATEDTO RISK LEVELS RECOMMENDED BY THE NATL.HEART, KARTHIK G, AND BLOOD INST. HDL CHOLESTEROL 20.5 mg/dL 32-72 L (test code = HDL) LIPOPROTEIN LDL 34.0 mg/dL 0-100 N <100 OPTIMAL 100-129 (test code = LDL) NEAR OPTIM AL/ABOVE [id number] 89 HIGH>SH=857 ERIN Y HIGH*Guidelines [facility] [employer] Adult Treatment Panel III CBC W/AUTO [id number] 06:39:00 Test Item Value Reference Range Interpretation Comments WHITE BLOOD CELL (test code = 9.6 x10 3/uL 4.5-11.0 N WBC) RED BLOOD CELL (test code = 3.45 x10 6/uL 4.00-5.60 L RBC) HEMOGLOBIN (test code = HGB) 10.3 g/dL 12.5-16.9 L HEMATOCRIT (test code = HCT) 31.6 % 37.5-50.7 L MEAN CELL VOLUME (test code = 91.6 fL 81.0-99.0 N MCV) MEAN CELL HGB (test code = MCH) 29.9 pg 27.0-33.0 N MEAN CELL HGB CONCETRATION 32.6 g/dL 33.0-37.0 L (test code = MCHC) RED CELL DISTRIBUTION WIDTH CV 17.0 % 11.5-14.5 H (test code = RDW) RED CELL DISTRIBUTION WIDTH SD 57.0 fL 37.0-54.0 H (test code = RDW-SD) PLATELET COUNT (test code = 260 x10 3/uL 150-400 N PLT) MEAN PLATELET VOLUME (test code 10.2 fL 7.0-9.0 H = MPV) NEUTROPHIL % (test code = NT%) 82.6 % 56.0-77.0 H IMMATURE GRANULOCYTE % (test 0.6 % 0.0-2.0 N code = IG%) LYMPHOCYTE % (test code = LY%) 9.7 % 14.0-32.0 L MONOCYTE % (test code = MO%) 6.1 % 4.8-9.0 N EOSINOPHIL % (test code = EO%) 0.8 % 0.3-3.7 N BASOPHIL % (test code = BA%) 0.2 % 0.0-2.0 N NUCLEATED RBC % (test code = 0.0 % 0-0 N NRBC%) NEUTROPHIL # (test code = NT#) 7.88 x10 3/uL 2.0-7.6 H IMMATURE GRANULOCYTE # (test 0.06 x10 3/uL 0.00-0.03 H code = IG#) LYMPHOCYTE # (test code = LY#) 0.93 x10 3/uL 1.0-3.8 L MONOCYTE # (test code = MO#) 0.58 x10 3/uL 0.1-0.8 N EOSINOPHIL # (test code = EO#) 0.08 x10 3/uL 0.0-0.2 N BASOPHIL # (test code = BA#) 0.02 x10 3/uL 0.0-0.2 N NUCLEATED RBC # (test code = 0.00 x10 3/uL 0.0-0.1 N NRBC#) MANUAL DIFF REQUIRED (test code NO = MDIFF) UR SODIUM [id number] 02:46:00 Test Item Value Reference Range Interpretation Comments UR SODIUM RANDOM 37 MEQ/L The Referen ce Range and (test code = JANE) Method Per formance specificationsh ave not been established for this fluid. The test result should be correlated into the clinical context forinte rpretation. UR PROTEIN/CREATININE [id number] 02:46:00 Test Item Value Reference Range Interpretation Comments UR PROTEIN RANDOM 221 mg/dL (test code = PROTU) UR CREATININE 147.5 mg/dL The Reference Range and RANDOM (test code Method Per formance = CREATU) specificationsh ave not been establishe d for this fluid. The test resultshould be correlated into the clinical contex t forinterpretati on. PROTEIN/CREATININ 1.50 E RATIO (test code = P/CRATIO) UA RFLX MICR CULT IF [id number] 02:36:00 Test Item Value Reference Range Interpretation Comments UA COLOR (test code = COLU) YELLOW YEL/STRAW UA APPEARANCE (test code = CLOUDY CLEAR A APPU) UA GLUCOSE DIPSTICK (test code NEGATIVE NEGATIVE = DGLUU) UA BILIRUBIN DIPSTICK (test NEGATIVE NEGATIVE code = BILU) UA KETONE DIPSTICK (test code TRACE NEGATIVE A = KETU) UA SPECIFIC GRAVITY (test code 1.016 1.005-1.030 N = SGU) UA BLOOD DIPSTICK (test code = 3+ NEGATIVE A JESSICA) UA PH DIPSTICK (test code = 5.0 5.0-7.0 N TYSON) UA PROTEIN DIPSTICK (test code 2+ NEGATIVE A = PROU) UA UROBILINIOGEN DIPSTICK 0.2 mg/dL 0.2-1.0 (test code = URO) UA NITRITE DIPSTICK (test code NEGATIVE NEGATIVE = KHAI) UA LEUKOCYTE ESTERASE DIPSTICK 2+ NEGATIVE A (test code = LEUU) UA WBC (test code = WBCU) >50 WBC/HPF 0-3 A UA RBC (test code = RBCU) >50 RBC/HPF 0-3 A UA WBC NO REFLEX (test code = >50 WBC/HPF 0-3 A WBCUCL) UA BACTERIA (test code = BACU) 4+ /HPF NONE SEEN A UA SQUAMOUS CELLS (test code = NONE SEEN /HPF NONE SEEN SQU) UA MUCUS (test code = MUCU) 2+ /LPF NONE SEEN A Indication for culture: RiskForSepsis-no oth srcSpecimen Description: CLEAN CATCH- US RETROPERITONEAL [id number] 00:00:00 [facility] 1985 Sex: M Name: JORGE GOINS [facility] : 1985 Age/S: 37 / M [address] [place] [address] Bl Unit #: [id number] Loc: [place] [address] Phys: Reed Lizama MD Acct: [id number] Dis Date: Status: ADM IN PHONE #: [phone] Exam Date: 10/25/2022 0653 FAX #: [phone] Reason: ARF ON CRF, DEHYDRATION EXAMS: CPT CODE: [id number] US RETROPERITONEAL COM [id number] PROCEDURE INFORMATION: Exam: US Retroperitoneal; Complete; Kidneys and Bladder Exam date and time: 10/25/2022 6:38 AM Age: 37 years old Clinical indication: Abnormal findings; Abnormal lab test; Abnormal kidney function lab tests; Additional info: Arf on crf, dehydration TECHNIQUE: Imaging protocol: Real-time ultrasound of the retroperitoneum with i mage documentation. Complete exam focused on the kidneys and bladder. COMPARISON: CT ABD PELVIS W/OCONT 06/21/2020 5:48 AM FINDINGS: Right kidney: Measures 10.4 cm.Normal cortical echogenity. There is mild right hydronephrosis. Left kidney: Measures 11.5 cm.Normal cortical echogenity. There is no hyd ronephrosis, nephrolithiasis. Intraperitoneal space: No ascites. Urinary bladder: Unremarkable. IMPRESSION: Mild right hydronephrosis. at 0906 Reported and signed by: Johana Key M.D. CC: Reed Lizama MD Technologist: Najma Magana RDMS(AB)(OB) Trnscb Date/Time: 10/25/2022 (905) [email or web address] Orig Print D/T: S: 10/25/2022 (905) Probe: PAGE 1 Signed ReportHEPATIC FUNCTION PANEL 2022-10-24 23:12:00 Test Item Value Reference Range Interpretation Comments TOTAL PROTEIN (test code = PROT) 7.8 g/dL 6.4-8.2 N ALBUMIN (test code = ALB) 3.60 g/dL 3.4-5.0 N BILIRUBIN TOTAL (test code = 0.60 mg/dL 0.0-1.0 N BILT) BILIRUBIN DIRECT (test code = 0.30 MG/DL 0.0-0.30 N BILD) SGOT/AST (test code = AST) 27 IUnit/L 15-37 N SGPT/ALT (test code = ALT) 12 IUnit/L 30-65 L ALKALINE PHOSPHATASE TOTAL (test 107 IUnit/L 20-125 N code = ALKP) BILIRUBIN INDIRECT (test code = 0.30 MG/DL BILIND) TROP-I HIGH [id number] 23:12:00 Test Item Value Reference Range Interpretation Comments TROP-I HIGH 6 ng/L 0-54 N CAUTION: Units of the SENSITIVITY (test current te st methodology code = TROPIHS) (ng/L) diffe rfrom the prior test methodolog y (ng/mL) by a factor of 1000. 99th Percentile Upper Reference Limit (URL): Females: 34 ng/LMales: 54 n g/L In order to distinguish acute elevations of h igh sensitivitytrop onin from other clinical conditions, the FourthUnive rsal Definition of M yocardial Infarction stre ssesclinical assessment and the demonstration o f a rise and/orfall in s erial troponin result s above the URL. These resu lts were obtained using Siemens Atellica IM TnI Hreagent. Results from di fferent methodologies s hould not becompared to o ne another as quantitative results and URLs mayvary by method. BASIC METABOLIC [id number] 23:12:00 Test Item Value Reference Range Interpretation Comments SODIUM (test code = 133 mEq/L 134-147 L NA) POTASSIUM (test code 4.4 mEq/L 3.4-5.0 N = K) CHLORIDE (test code 101 mEq/L 100-108 N = CL) CARBON DIOXIDE (test 13 mEq/l 21-33 L code = CO2) ANION GAP (test code 23 0-20 H = GAP) GLUCOSE (test code = 69 mg/dL 70-110 L GLU) BLOOD UREA NITROGEN 62 mg/dL 7-18 H (test code = BUN) GLOMERULAR 19.5 105-110 L The Glomerular FILTRATION RATE Filtration R ate is a (test code = GFR) calculated parameterbased on serum Creatinine, pat ient age and sex. GFR va luesless than 60 mL/min/ 1.73 square meters a re indicative ofCh ronic Kidney Disease. Values less than 15 mL/min/1.73squa re meters indicate Kidney failure. The calculation forGFR is based on the CKD-EPI (2020) calculat ion. This formulais race indifferent and is the recommended for bridgett for GFRby the [facility] on for Adults.The GFR will not calculate if th e sex is unknown or if thepatient's ag e is <18 years. CREATININE (test 3.9 mg/dL 0.6-1.3 H code = CREAT) CALCIUM (test code = 8.2 mg/dL 8.0-10.5 N CA) LACTIC [id number] 22:22:00 Test Item Value Reference Range Interpretation Comments LACTIC ACID (test code = LACT) 1.8 mmol/L 0.4-1.9 N CBC W/AUTO [id number] 22:12:00 Test Item Value Reference Range Interpretation Comments WHITE BLOOD CELL (test code = 10.7 x10 3/uL 4.5-11.0 N WBC) RED BLOOD CELL (test code = 3.69 x10 6/uL 4.00-5.60 L RBC) HEMOGLOBIN (test code = HGB) 10.6 g/dL 12.5-16.9 L HEMATOCRIT (test code = HCT) 34.5 % 37.5-50.7 L MEAN CELL VOLUME (test code = 93.5 fL 81.0-99.0 N MCV) MEAN CELL HGB (test code = MCH) 28.7 pg 27.0-33.0 N MEAN CELL HGB CONCETRATION 30.7 g/dL 33.0-37.0 L (test code = MCHC) RED CELL DISTRIBUTION WIDTH CV 16.4 % 11.5-14.5 H (test code = RDW) RED CELL DISTRIBUTION WIDTH SD 57.1 fL 37.0-54.0 H (test code = RDW-SD) PLATELET COUNT (test code = 240 x10 3/uL 150-400 N PLT) MEAN PLATELET VOLUME (test code 11.0 fL 7.0-9.0 H = MPV) NEUTROPHIL % (test code = NT%) 83.4 % 56.0-77.0 H IMMATURE GRANULOCYTE % (test 0.7 % 0.0-2.0 N code = IG%) LYMPHOCYTE % (test code = LY%) 8.7 % 14.0-32.0 L MONOCYTE % (test code = MO%) 6.6 % 4.8-9.0 N EOSINOPHIL % (test code = EO%) 0.3 % 0.3-3.7 N BASOPHIL % (test code = BA%) 0.3 % 0.0-2.0 N NUCLEATED RBC % (test code = 0.0 % 0-0 N NRBC%) NEUTROPHIL # (test code = NT#) 8.91 x10 3/uL 2.0-7.6 H IMMATURE GRANULOCYTE # (test 0.08 x10 3/uL 0.00-0.03 H code = IG#) LYMPHOCYTE # (test code = LY#) 0.93 x10 3/uL 1.0-3.8 L MONOCYTE # (test code = MO#) 0.70 x10 3/uL 0.1-0.8 N EOSINOPHIL # (test code = EO#) 0.03 x10 3/uL 0.0-0.2 N BASOPHIL # (test code = BA#) 0.03 x10 3/uL 0.0-0.2 N NUCLEATED RBC # (test code = 0.00 x10 3/uL 0.0-0.1 N NRBC#) MANUAL DIFF REQUIRED (test code NO = MDIFF) - XR CHEST 1 [id number] 00:00:00 [facility] Brii : 1985 Sex: M FAX: Yasir Garcia MD Constable: St: PRE Name: JORGE GOINS [facility] : 1985 Age/S: 37/M [address] [place] [address] Unit #: [id number] Loc: [place] [address] Phys: Yasir Garcia MD Acct: [id number] Date: Status: PRE ER PHONE #: [phone] Exam Date: 10/24/20222051 FAX #: [phone] Reason: SBO EXAMS: CPT CODE: [id number] XR CHEST 1 V 06311 PROCEDURE INFORMATION: Exam: XR Chest Exam date and time: 10/24/2022 8:39 PM Age: 37 years old Clinical indication: Other: Sbo TECHNIQUE: Imaging protocol: Radiologic exam of the chest. Views: 1 view. COMPARISON: CR XR CHEST 1V 08/28/2020 1:08 PM FINDINGS: Lungs: Mild decreased lung volumes. No consolidation. Pleural spaces: No pleural effusion. No pneumothorax. Heart/Mediastinum: Heart size is within normal limits. Vasculature is unremarkable. Status post TEVAR. Bones/joints: No acute osseous abnormalities. IMPRESSION: No acute cardiopulmonary findings. at 2101 Reported and signed by: Sean Dent M.D. CC: Yasir Garcia MD Technologist: Jay Mcneal RT(R) Trnscrd Date/Time/By: 10/24/2022 (2101) : By: [email or web address] Orig Print D/T: S: 10/24/2022 (2102) PAGE 1 Signed Report- XR ABDOMEN 1V (KUB)2022-10-24 00:00:00 [facility] 1985 Sex: M FAX: Yasir Garcia MD Constable: St: REG Name: JORGE GOINS [facility] : 1985 Age/S: 37/M [address] [place] [address] Unit #: [id number] Loc: [place] [address] Phys: Yasir Garcia MD Acct: [id number] Date: Status: REG ER PHONE #: [phone] Exam Date: 10/24/20222051 FAX #: [phone] Reason: SBO EXAMS: CPT CODE: [id number] XR ABDOMEN 1V (KUB) 83880 PROCEDURE INFORMATION: Exam: XR Abdomen Exam date and time: 10/24/2022 8:39 PM Age: 37 years old Clinical indication: Other: Sbo TECHNIQUE: Imaging protocol: Radiologic exam of the abdomen. Views: Frontal supine view of the abdomen. 1 View. COMPARISON: CR XR ABDOMEN AP 1 V 07/16/2020 9:30 PM FINDINGS: Tubes, catheters and devices: Status post endograft repair of the aorta. Gastrointestinal tract: Distended air-filled small bowel measuring up to4.7 cm consistent with acute small bowel obstruction. Organs: Cholecystectomy clips. Bones/joints: Right iliac artery stents noted as well. Osteopenia. Soft tissues: No abnormal radiopaque densities. Other findings: No evidence for free air or pneumatosis. IMPRESSION: Small bowel obstructive gas pattern. at 2125 Reported and signed by: Martin Burrell M.D. CC: Yasir Garcia MD Technologist: Jay Mcneal RT(R) Trnscrd Date/Time/By: 10/24/2022 (2125) : By: [email or web address] Orig Print D/T: S: 10/24/2022 (2125) PAGE 1 Signed [id number]-3 RNA Resp Ql [id number] 21:48:58 Test Item Value Reference Range Interpretation Comments Hospitalized? (test code No = 16322-2) ICU? (test code = No 97002-8) Symptomatic as defined No by CDC? (test code = 30589-9) Employed in Healthcare? No (test code = 63826-4) Resident in a congregate No care setting (including nursing homes, residential care for people with intellectual and developmental disabilities, psychiatric treatment facilities, group homes, board and care homes, homeless senior care, foster care or other): (test code = 01437-2) SARS-CoV-2 RNA Resp Ql DETECTED Not Detected A INTER PRETATION: This RENU+probe (test code = félix [place] 31149-3) detectable RNA present for the SARS-CoV-2 Coronavirus (COVID-19). A r esult with detectable RNA does not indica te the severity of infection. This result should b e interpreted in conjunction wit h clinical, radiographic, a nd other laborator y findings and sh ould not be used as the sole indicator of active infectio n with SARS-CoV-2 Coronavirus (COVID-19). COMMENT: This [employer] SARS-CoV-2 real-time PCR test was developed, and its performance characteristics determined by the [facility] molecular diagnostic Laboratory and is acceptablefor patient testing. It has been approved for patient testing by the FDA under the Emergency Use Auth orization pathway. This laboratory is certified under federal CLIA regulations to perform this type of high complexity testing.GIOORST-CmC-2 ORF1ab Resp Ql [id number] 02:07:15 Test Item Value Reference Range Interpretation Comments Hospitalized? (test No code = 01834-7) ICU? (test code = No 94712-1) Symptomatic as No defined by CDC? (test code = 91470-5) Employed in No Healthcare? (test code = 71547-8) Resident in a No congregate care setting (including nursing homes, residential care for people with intellectual and developmental disabilities, psychiatric treatment facilities, group homes, board and care homes, homeless senior care, foster care or other): (test code = 11993-5) SARS-CoV-2 ORF1ab NOT DETECTED Not Detected INTERPRETA TION: No Resp Ql RENU+probe detectable levels of (test code = SARS-CoV-2 35335-9) Coronavirus (COVID-19) were present in this patient's sampl e by this test. A no t detected result does not exclude the possibility of active infection with this virus due to ot her factors that ma y affect the resu lts such as a poorl y collected sampl e, viral titers be low the limit of detection of th e assay, and the infrequent possibility of inhibitors in t he sample. This re sult should be inter preted in conjunction with clinical, radiographic, a nd other laborator y findings and sh ould not be used as the sole indicator of active infectio n with SARS-CoV-2 Coronavirus (COVID-19).COMM ENT: This Hologic Ap salomon SARS-CoV-2 mole cular diagnostic assa y utilizes [employer] Mediated Amplification ( TMA) technology to r apidly detect the SARS -CoV-2 (COVID-19) viru s from respiratory ashwini ples. In accordance with\\XC2A0\\the FDA's guidance docume nt "Policy for Diagnostic Test s for Coronavirus Disease-2019 du ring the Public Heal th Emergency", thi s test was developed, and its performance characteristics were verified by the [facility] molecular diagn ostics laboratory and is authorized for clinical diagno stic use. \\XC2A0\\Thi s laboratory is certified under the Clinical Labora tory Improvement Amendments (CLI A) as qualified to pe rform high complexity clinical labora tory testing. HHSCoronavirus, CoVID-19, [id number] 05:25:52 Test Item Value Reference Interpretation Comments Range COVID-19 Not Detected Not Detected The 2019 novel (SARS-COV-2) (test coronavir us code = 76020-2) (SARS-CoV-2) target nucleic acids are not detected. [place] (test code = COMMENT: The [employer] [place]) DWAINE SARS-CoV-2 real-time RT-PCR based diagnostic test intended for the qualitative detection of SARS-CoV-2 viral RNA in a nasopharyngeal swab during acute phase of infection. This test was developed and its performance characteristics have been determined by the [facility]. This test has not been cleared or approved by the FDA. This test system has been authorized by the FDA under an Emergency Use Authorization (EUA). This test has been validated in accordance with the FDA s Guidance document Policy for Coronavirus Disease-2019 Tests During the Public Health Emergency (Revised October 2019) and is used for clinical purposes. It should not be regarded as investigational or for research Detected results are indicative of the presence of the identified virus, but do not rule out bacterial infection or co-infection with other pathogens not detected by the test. Clinical correlation with patient history and other diagnostic information is necessary to determine patient infection status. Not Detected results do not preclude SARS-CoV-2 and should not be used as the sole basis for treatment or other patient management decisions. Negative results must be combined with clinical observations, patient history, and/or epidemiological information. This laboratory is certified under the Clinical Laboratory Improvement Amendments (CLIA) as qualified to perform high complexity clinical laboratory testing. Lab Interpretation Normal (test code = 01870-0) [facility], [id number] 05:25:52 Test Item Value Reference Interpretation Comments Range COVID-19 Not Detected Not Detected The 2019 novel (SARS-COV-2) (test coronavir us code = 59673-9) (SARS-CoV-2) target nucleic acids are not detected. [place] (test code = COMMENT: The [employer] [place]) DWAINE SARS-CoV-2 real-time RT-PCR based diagnostic test intended for the qualitative detection of SARS-CoV-2 viral RNA in a nasopharyngeal swab during acute phase of infection. This test was developed and its performance characteristics have been determined by the [facility]. This test has not been cleared or approved by the FDA. This test system has been authorized by the FDA under an Emergency Use Authorization (EUA). This test has been validated in accordance with the FDA s Guidance document Policy for Coronavirus Disease-2019 Tests During the Public Health Emergency (Revised October 2019) and is used for clinical purposes. It should not be regarded as investigational or for research Detected results are indicative of the presence of the identified virus, but do not rule out bacterial infection or co-infection with other pathogens not detected by the test. Clinical correlation with patient history and other diagnostic information is necessary to determine patient infection status. Not Detected results do not preclude SARS-CoV-2 and should not be used as the sole basis for treatment or other patient management decisions. Negative results must be combined with clinical observations, patient history, and/or epidemiological information. This laboratory is certified under the Clinical Laboratory Improvement Amendments (CLIA) as qualified to perform high complexity clinical laboratory testing. Lab Interpretation Normal (test code = 10902-8) [facility] RNA Resp Ql [id number] 05:25:52 Test Item Value Reference Range Interpretation Comments Hospitalized? (test No code = 39819-7) ICU? (test code = No 72907-4) Symptomatic as defined No by CDC? (test code = 19277-5) Employed in No Healthcare? (test code = 89411-5) Resident in a No congregate care setting (including nursing homes, residential care for people with intellectual and developmental disabilities, psychiatric treatment facilities, group homes, board and care homes, homeless senior care, foster care or other): (test code = 70286-7) SARS-CoV-2 RNA Nph Ql NOT DETECTED Not Detected The novel RENU+probe (test code = coron avirus 17417-3) (SARS-CoV-2) ta rget nucleic acids a re not detected. COMMENT: The [employer] SARS-CoV-2 real-time RT-PCR based diagnostic test intended for the qualitative detection of SARS-CoV-2 viral RNA in a nasopharyngeal swab during acute phase of infection. This test was developed and its performance characteristics have been determined by the [facility]. This test has not been cleared or approved by the FDA. This testsystem has been authorized by the FDA under an Emergency Use Authorization (EUA). This test has beenvalidated in accordance with the FDA\\GJ00729\\s Guidance document \\LX5040D\\Policy for Coronavirus Disease-2019 Tests During the Public Health Emergency\\YP7486T\\ (Revised October 2019) and is used for clinical purposes. It should not be regarded as investigational or for research\\KN6323E\\Detected\\BS2461E\\ results are indicative of the presence of the identified virus, but do not rule out bacterial infection or co-infection with other pathogens not detected by the test. Clinical correlation with patient his tory and other diagnostic information is necessary to determine patient infection status. \\YS8298W\\Not Detected\\FT5598O\\ results do not preclude SARS-CoV-2 and should not be used as the sole basis for treatment or other patient management decisions. Negative results must be combined with clinical observations, patient history, and/or epidemiological information.This laboratory is certified under the Clinical Laboratory Improvement Amendments (CLIA) as qualified to perform high complexity clinical laboratory testing.[facility] BLOOD [id number] 15:00:54 Test Item Value Reference Range Interpretation Comments CULTURE (BEAKER) (test No growth in 5 days code = 1095) BLOOD [id number] 12:00:54 Test Item Value Reference Range Interpretation Comments CULTURE (BEAKER) (test No growth in 5 days code = 1095) [id number] 15:59:44 Test Item Value Reference Range Interpretation Comments POTASSIUM (BEAKER) (test code = 4.5 meq/L 3.5-5.1 379) SARS-CoV2/Influenza/RSV RT-PCR (Symptomatic ONLY)2022-03-04 14:40:28 Test Item Value Reference Interpretation Comments Range SARS-COV2/RT-PCR Negative Negative The SARS-Co V-2 (test code = target nucleic 58304-5) acids are not detected in thi s specimen. Negat anupama results do not preclude SARS-C oV-2 infection and should not be u sed as the sole bas is for patient management decisions. Nega tive results must be combined with clinical observations, patient history , and epidemiolog ical information. A false negative result may occu r if a specimen is improperly collected, transported or handled. This SARS CoV-2 test is a rapid, real-irving e RT-PCR test intended for th e qualitative detection of nucleic acid fr om SARS-CoV-2 in a nasopharyngeal swab specimen colle kar from individual s suspected of COVID-19 by the healthcare provider. Influenza A RT-PCR Negative Negative The Flu A target (test code = [place] 75042-6) not detected in this specimen. Influenza B RT-PCR Negative Negative The Flu B target (test code = [place] 07732-4) not detected in this specimen. RSV by RT-PCR (test Negative Negative The RSV target code = 53277-0) nucleic acid s are not detected in this specimen. [place] (test code = The presence of [place]) SARS-CoV-2/FLU/RSV viral nucleic acids cannot rule out co-infections or disease caused by other viral or bacterial pathogens. As with any molecular test, mutations within the target regions of the Xpert Xpress SARS-CoV-2/Flu/RSV test could affect primer and/or probe binding resulting in failure to detect the presence of virus or the virus being detected less predictably. False negative results may occur if the virus is present at levels below the analytical limit of detection in this specimen. This Xpert Xpress SARS-CoV-2/Flu/RSV test is a rapid, real-time RT-PCR test intended for the qualitative detection of nucleic acid from Xpert Xpress SARS-CoV-2/Flu/RSV in a nasopharyngeal swab specimen collected from individuals suspected of Xpert Xpress SARS-CoV-2/Flu/RSV by their healthcare provider. Results from [facility] Xpert Xpress SARS-CoV-2/Flu/RSV test should be correlated with the clinical history, epidemiological data, and other data available to the clinician evaluating the patient. Viral nucleic acid may persist in vivo, independent of virus viability. Detection of analyte target(s) does not imply that the corresponding virus(es) are infectious or are the causative agents for clinical symptoms. This test has not been Food and Drug Administration (FDA) cleared or approved and has been authorized by FDA under an Emergency Use Authorization (EUA). This EUA will be effective until the declaration that circumstances exist justifying the authorization of the emergency use of in vitro diagnostic tests for detection and/or diagnosis of COVID-19 is terminated under Section 564(b)(2) of the Act or the EUA is revoked under Section 564(g) of the Act. Fact Sheet for Healthcare Providers:https://w [employer]/Docu ments/Xpert%20Xpres s%20SARS%20CoV-2/Fa ct%20Sheets/302-390 2%98YJYM-IMA-4%20HE ALTHCARE%20PROVIDER S%20FACT%20SHEET.pd f Fact Sheet for Healthcare Patients:https://ww [employer]/Docum ents/Xpert%20Xpress %20SARS%20Cov-2/Fac t%20Sheets/302-3801 %99NFLY-QUH-6%20PAT IENT%20FACT%20SHEET .pdf Lab Interpretation Normal (test code = 03288-7) [facility] 2022-03-04 14:40:28 Test Item Value Reference Interpretation Comments Range SARS-COV2/RT-PCR Negative Negative The SARS-Co V-2 (test code = target nucleic 77006-3) acids are not detected in thi s specimen. Negat anupama results do not preclude SARS-C oV-2 infection and should not be u sed as the sole bas is for patient management decisions. Nega tive results must be combined with clinical observations, patient history , and epidemiolog ical information. A false negative result may occu r if a specimen is improperly collected, transported or handled. This S ARS CoV-2 test is a rapid, real-irving e RT-PCR test intended for e qualitative detection of nucleic acid fr om SARS-CoV-2 in a nasopharyngeal swab specimen colle kar from individual s suspected of COVID-19 by the ir healthcare provider. Influenza A RT-PCR Negative Negative The Flu A target (test code = [place] 58483-5) not detected in this specimen. Influenza B RT-PCR Negative Negative The Flu B target (test code = nucleic acids a re 16488-8) not detected in this specimen. RSV by RT-PCR (test Negative Negative The RSV target code = 02419-8) nucleic acid s are not detected in this specimen. [place] (test code = The presence of [place]) SARS-CoV-2/FLU/RSV viral nucleic acids cannot rule out co-infections or disease caused by other viral or bacterial pathogens. As with any molecular test, mutations within the target regions of the Xpert Xpress SARS-CoV-2/Flu/RSV test could affect primer and/or probe binding resulting in failure to detect the presence of virus or the virus being detected less predictably. False negative results may occur if the virus is present at levels below the analytical limit of detection in this specimen. This Xpert Xpress SARS-CoV-2/Flu/RSV test is a rapid, real-time RT-PCR test intended for the qualitative detection of nucleic acid from Xpert Xpress SARS-CoV-2/Flu/RSV in a nasopharyngeal swab specimen collected from individuals suspected of Xpert Xpress SARS-CoV-2/Flu/RSV by their healthcare provider. Results from [facility] Xpert Xpress SARS-CoV-2/Flu/RSV test should be correlated with the clinical history, epidemiological data, and other data available to the clinician evaluating the patient. Viral nucleic acid may persist in vivo, independent of virus viability. Detection of analyte target(s) does not imply that the corresponding virus(es) are infectious or are the causative agents for clinical symptoms. This test has not been Food and Drug Administration (FDA) cleared or approved and has been authorized by FDA under an Emergency Use Authorization (EUA). This EUA will be effective until the declaration that circumstances exist justifying the authorization of the emergency use of in vitro diagnostic tests for detection and/or diagnosis of COVID-19 is terminated under Section 564(b)(2) of the Act or the EUA is revoked under Section 564(g) of the Act. Fact Sheet for Healthcare Providers:https://w [employer]/Docu ments/Xpert%20Xpres s%20SARS%20CoV-2/Fa ct%20Sheets/302-390 2%03BQBN-AXX-8%20HE ALTHCARE%20PROVIDER S%20FACT%20SHEET.pd f Fact Sheet for Healthcare Patients:https://[employer]/Docum ents/Xpert%20Xpress %20SARS%20Cov-2/Fac t%20Sheets/302-3801 %98KZHI-UDX-4%20PAT IENT%20FACT%20SHEET .pdf Lab Interpretation Normal (test code = 52928-2) [facility]Symptomatic ONLY[facility] 2022-03-04 14:40:28 Test Item Value Reference Interpretation Comments Range SARS-COV2/RT-PCR Negative Negative The SARS-Co V-2 (test code = target nucleic 89922-3) acids are not detected in thi s specimen. Negat anupama results do not preclude SARS-C oV-2 infection and should not be u sed as the sole bas is for patient management decisions. Nega tive results must be combined with clinical observations, patient history , and epidemiolog ical information. A false negative result may occu r if a specimen is improperly collected, transported or handled. This S ARS CoV-2 test is a rapid, real-irving e RT-PCR test intended for th e qualitative detection of nucleic acid fr om SARS-CoV-2 in a nasopharyngeal swab specimen colle kar from individual s suspected of COVID-19 by the ir healthcare provider. Influenza A RT-PCR Negative Negative The Flu A target (test code = [place] [address]48-7) not detected in this specimen. Influenza B RT-PCR Negative Negative The Flu B target (test code = [place] 30194-8) not detected in this specimen. RSV by RT-PCR (test Negative Negative The RSV target code = 02038-9) nucleic acid s are not detected in this specimen. [place] (test code = The presence of [place]) SARS-CoV-2/FLU/RSV viral nucleic acids cannot rule out co-infections or disease caused by other viral or bacterial pathogens. As with any molecular test, mutations within the target regions of the Xpert Xpress SARS-CoV-2/Flu/RSV test could affect primer and/or probe binding resulting in failure to detect the presence of virus or the virus being detected less predictably. False negative results may occur if the virus is present at levels below the analytical limit of detection in this specimen. This Xpert Xpress SARS-CoV-2/Flu/RSV test is a rapid, real-time RT-PCR test intended for the qualitative detection of nucleic acid from Xpert Xpress SARS-CoV-2/Flu/RSV in a nasopharyngeal swab specimen collected from individuals suspected of Xpert Xpress SARS-CoV-2/Flu/RSV by their healthcare provider. Results from [facility] Xpert Xpress SARS-CoV-2/Flu/RSV test should be correlated with the clinical history, epidemiological data, and other data available to the clinician evaluating the patient. Viral nucleic acid may persist in vivo, independent of virus viability. Detection of analyte target(s) does not imply that the corresponding virus(es) are infectious or are the causative agents for clinical symptoms. This test has not been Food and Drug Administration (FDA) cleared or approved and has been authorized by FDA under an Emergency Use Authorization (EUA). This EUA will be effective until the declaration that circumstances exist justifying the authorization of the emergency use of in vitro diagnostic tests for detection and/or diagnosis of COVID-19 is terminated under Section 564(b)(2) of the Act or the EUA is revoked under Section 564(g) of the Act. Fact Sheet for Healthcare Providers:https://w [employer]/Docu ments/Xpert%20Xpres s%20SARS%20CoV-2/Fa ct%20Sheets/302-390 2%86IWHR-ZYO-5%20HE ALTHCARE%20PROVIDER S%20FACT%20SHEET.pd f Fact Sheet for Healthcare Patients:https://[employer]/Docum ents/Xpert%20Xpress %20SARS%20Cov-2/Fac t%20Sheets/302-3801 %02SLZQ-CCH-1%20PAT IENT%20FACT%20SHEET .pdf Lab Interpretation Normal (test code = 32048-8) [facility] (Symptomatic ONLY) 2022-03-04 14:40:28 Test Item Value Reference Interpretation Comments Range SARS-COV2/RT-PCR Negative Negative The SARS-Co V-2 (test code = target nucleic 60992-2) acids are not detected in thi s specimen. Negat anupama results do not preclude SARS-C oV-2 infection and should not be u sed as the sole bas is for patient management decisions. Nega tive results must be combined with clinical observations, patient history , and epidemiolog ical information. A false negative result may occu r if a specimen is improperly collected, transported or handled. This S ARS CoV-2 test is a rapid, real-irving e RT-PCR test intended for th e qualitative detection of nucleic acid fr om SARS-CoV-2 in a nasopharyngeal swab specimen colle kar from individual s suspected of COVID-19 by the ir healthcare provider. Influenza A RT-PCR Negative Negative The Flu A target (test code = [place] 72914-7) not detected in this specimen. Influenza B RT-PCR Negative Negative The Flu B target (test code = [place] re 49539-9) not detected in this specimen. RSV by RT-PCR (test Negative Negative The RSV target code = 93620-6) nucleic acid s are not detected in this specimen. [place] (test code = The presence of [place]) SARS-CoV-2/FLU/RSV viral nucleic acids cannot rule out co-infections or disease caused by other viral or bacterial pathogens. As with any molecular test, mutations within the target regions of the Xpert Xpress SARS-CoV-2/Flu/RSV test could affect primer and/or probe binding resulting in failure to detect the presence of virus or the virus being detected less predictably. False negative results may occur if the virus is present at levels below the analytical limit of detection in this specimen. This Xpert Xpress SARS-CoV-2/Flu/RSV test is a rapid, real-time RT-PCR test intended for the qualitative detection of nucleic acid from Xpert Xpress SARS-CoV-2/Flu/RSV in a nasopharyngeal swab specimen collected from individuals suspected of Xpert Xpress SARS-CoV-2/Flu/RSV by their healthcare provider. Results from [facility] Xpert Xpress SARS-CoV-2/Flu/RSV test should be correlated with the clinical history, epidemiological data, and other data available to the clinician evaluating the patient. Viral nucleic acid may persist in vivo, independent of virus viability. Detection of analyte target(s) does not imply that the corresponding virus(es) are infectious or are the causative agents for clinical symptoms. This test has not been Food and Drug Administration (FDA) cleared or approved and has been authorized by FDA under an Emergency Use Authorization (EUA). This EUA will be effective until the declaration that circumstances exist justifying the authorization of the emergency use of in vitro diagnostic tests for detection and/or diagnosis of COVID-19 is terminated under Section 564(b)(2) of the Act or the EUA is revoked under Section 564(g) of the Act. Fact Sheet for Healthcare Providers:https://w [employer]/Docu ments/Xpert%20Xpres s%20SARS%20CoV-2/Fa ct%20Sheets/302-390 2%75GPFA-ILT-3%20HE ALTHCARE%20PROVIDER S%20FACT%20SHEET.pd f Fact Sheet for Healthcare Patients:https://ww [employer]/Docum ents/Xpert%20Xpress %20SARS%20Cov-2/Fac t%20Sheets/302-3801 %26NOPR-NDU-2%20PAT IENT%20FACT%20SHEET .pdf Lab Interpretation Normal (test code = 55309-4) [facility]Symptomatic ONLY) 2022-03-04 14:40:28 Test Item Value Reference Interpretation Comments Range SARS-COV2/RT-PCR Negative Negative The SARS-Co V-2 (test code = target nucleic 83503-3) acids are not detected in thi s specimen. Negat anupama results do not preclude SARS-C oV-2 infection and should not be u sed as the sole bas is for patient management decisions. Nega tive results must be combined with clinical observations, patient history , and epidemiolog ical information. A false negative result may occu r if a specimen is improperly collected, transported or handled. This S ARS CoV-2 test is a rapid, real-irving e RT-PCR test intended for e qualitative detection of nucleic acid fr om SARS-CoV-2 in a nasopharyngeal swab specimen collec kar from individual s suspected of COVID-19 by the ir healthcare provider. Influenza A RT-PCR Negative Negative The Flu A target (test code = [place] re 27638-4) not detected in this specimen. Influenza B RT-PCR Negative Negative The Flu B target (test code = [place] 57138-3) not detected in this specimen. RSV by RT-PCR (test Negative Negative The RSV target code = 06733-1) nucleic acid s are not detected in this specimen. [place] (test code = The presence of [place]) SARS-CoV-2/FLU/RSV viral nucleic acids cannot rule out co-infections or disease caused by other viral or bacterial pathogens. As with any molecular test, mutations within the target regions of the Xpert Xpress SARS-CoV-2/Flu/RSV test could affect primer and/or probe binding resulting in failure to detect the presence of virus or the virus being detected less predictably. False negative results may occur if the virus is present at levels below the analytical limit of detection in this specimen. This Xpert Xpress SARS-CoV-2/Flu/RSV test is a rapid, real-time RT-PCR test intended for the qualitative detection of nucleic acid from Xpert Xpress SARS-CoV-2/Flu/RSV in a nasopharyngeal swab specimen collected from individuals suspected of Xpert Xpress SARS-CoV-2/Flu/RSV by their healthcare provider. Results from [facility] Xpert Xpress SARS-CoV-2/Flu/RSV test should be correlated with the clinical history, epidemiological data, and other data available to the clinician evaluating the patient. Viral nucleic acid may persist in vivo, independent of virus viability. Detection of analyte target(s) does not imply that the corresponding virus(es) are infectious or are the causative agents for clinical symptoms. This test has not been Food and Drug Administration (FDA) cleared or approved and has been authorized by FDA under an Emergency Use Authorization (EUA). This EUA will be effective until the declaration that circumstances exist justifying the authorization of the emergency use of in vitro diagnostic tests for detection and/or diagnosis of COVID-19 is terminated under Section 564(b)(2) of the Act or the EUA is revoked under Section 564(g) of the Act. Fact Sheet for Healthcare Providers:https://w [employer]/Docu ments/Xpert%20Xpres s%20SARS%20CoV-2/Fa ct%20Sheets/302-390 2%34YYZJ-PZW-1%20HE ALTHCARE%20PROVIDER S%20FACT%20SHEET.pd f Fact Sheet for Healthcare Patients:https://[employer]/Docum ents/Xpert%20Xpress %20SARS%20Cov-2/Fac t%20Sheets/302-3801 %59XRWQ-JXE-0%20PAT IENT%20FACT%20SHEET .pdf Lab Interpretation Normal (test code = 13892-7) [facility]Symptomatic ONLY[facility] 2022-03-04 14:40:28 Test Item Value Reference Interpretation Comments Range SARS-COV2/RT-PCR Negative Negative The SARS-Co V-2 (test code = target nucleic 82070-5) acids are not detected in thi s specimen. Negat anupama results do not preclude SARS-C oV-2 infection and should not be u sed as the sole bas is for patient management decisions. Nega tive results must be combined with clinical observations, patient history , and epidemiolog ical information. A false negative result may occu r if a specimen is improperly collected, transported or handled. This S ARS CoV-2 test is a rapid, real-irving e RT-PCR test intended for th e qualitative detection of nucleic acid fr om SARS-CoV-2 in a nasopharyngeal swab specimen collec kar from individual s suspected of COVID-19 by the ir healthcare provider. Influenza A RT-PCR Negative Negative The Flu A target (test code = [place] 78673-4) not detected in this specimen. Influenza B RT-PCR Negative Negative The Flu B target (test code = nucleic [place] re 74008-5) not detected in this specimen. RSV by RT-PCR (test Negative Negative The RSV target code = 54464-9) nucleic acid s are not detected in this specimen. [place] (test code = The presence of [place]) SARS-CoV-2/FLU/RSV viral nucleic acids cannot rule out co-infections or disease caused by other viral or bacterial pathogens. As with any molecular test, mutations within the target regions of the Xpert Xpress SARS-CoV-2/Flu/RSV test could affect primer and/or probe binding resulting in failure to detect the presence of virus or the virus being detected less predictably. False negative results may occur if the virus is present at levels below the analytical limit of detection in this specimen. This Xpert Xpress SARS-CoV-2/Flu/RSV test is a rapid, real-time RT-PCR test intended for the qualitative detection of nucleic acid from Xpert Xpress SARS-CoV-2/Flu/RSV in a nasopharyngeal swab specimen collected from individuals suspected of Xpert Xpress SARS-CoV-2/Flu/RSV by their healthcare provider. Results from [facility] Xpert Xpress SARS-CoV-2/Flu/RSV test should be correlated with the clinical history, epidemiological data, and other data available to the clinician evaluating the patient. Viral nucleic acid may persist in vivo, independent of virus viability. Detection of analyte target(s) does not imply that the corresponding virus(es) are infectious or are the causative agents for clinical symptoms. This test has not been Food and Drug Administration (FDA) cleared or approved and has been authorized by FDA under an Emergency Use Authorization (EUA). This EUA will be effective until the declaration that circumstances exist justifying the authorization of the emergency use of in vitro diagnostic tests for detection and/or diagnosis of COVID-19 is terminated under Section 564(b)(2) of the Act or the EUA is revoked under Section 564(g) of the Act. Fact Sheet for Healthcare Providers:https://[employer]/Docu ments/Xpert%20Xpres s%20SARS%20CoV-2/Fa ct%20Sheets/302-390 2%35XZUW-IUZ-0%20HE ALTHCARE%20PROVIDER S%20FACT%20SHEET.pd f Fact Sheet for Healthcare Patients:https://[employer]/Docum ents/Xpert%20Xpress %20SARS%20Cov-2/Fac t%20Sheets/302-3801 %54THOU-DVK-9%20PAT IENT%20FACT%20SHEET .pdf Lab Interpretation Normal (test code = 05244-9) [facility]Symptomatic ONLY[facility] 2022-03-04 14:40:28 Test Item Value Reference Interpretation Comments Range SARS-COV2/RT-PCR Negative Negative The SARS-Co V-2 (test code = target nucleic 64716-3) acids are not detected in thi s specimen. Negat anupama results do not preclude SARS-C oV-2 infection and should not be u sed as the sole bas is for patient management decisions. Nega tive results must be combined with clinical observations, patient history , and epidemiolog ical information. A false negative result may occu r if a specimen is improperly collected, transported or handled. This S ARS CoV-2 test is a rapid, real-irving e RT-PCR test intended for th e qualitative detection of nucleic acid fr om SARS-CoV-2 in a nasopharyngeal swab specimen colle kar from individual s suspected of COVID-19 by the ir healthcare provider. Influenza A RT-PCR Negative Negative The Flu A target (test code = [place] 85173-4) not detected in this specimen. Influenza B RT-PCR Negative Negative The Flu B target (test code = nucleic acids a re 37383-6) not detected in this specimen. RSV by RT-PCR (test Negative Negative The RSV target code = 75493-3) nucleic acid s are not detected in this specimen. [place] (test code = The presence of [place]) SARS-CoV-2/FLU/RSV viral nucleic acids cannot rule out co-infections or disease caused by other viral or bacterial pathogens. As with any molecular test, mutations within the target regions of the Xpert Xpress SARS-CoV-2/Flu/RSV test could affect primer and/or probe binding resulting in failure to detect the presence of virus or the virus being detected less predictably. False negative results may occur if the virus is present at levels below the analytical limit of detection in this specimen. This Xpert Xpress SARS-CoV-2/Flu/RSV test is a rapid, real-time RT-PCR test intended for the qualitative detection of nucleic acid from Xpert Xpress SARS-CoV-2/Flu/RSV in a nasopharyngeal swab specimen collected from individuals suspected of Xpert Xpress SARS-CoV-2/Flu/RSV by their healthcare provider. Results from [facility] Xpert Xpress SARS-CoV-2/Flu/RSV test should be correlated with the clinical history, epidemiological data, and other data available to the clinician evaluating the patient. Viral nucleic acid may persist in vivo, independent of virus viability. Detection of analyte target(s) does not imply that the corresponding virus(es) are infectious or are the causative agents for clinical symptoms. This test has not been Food and Drug Administration (FDA) cleared or approved and has been authorized by FDA under an Emergency Use Authorization (EUA). This EUA will be effective until the declaration that circumstances exist justifying the authorization of the emergency use of in vitro diagnostic tests for detection and/or diagnosis of COVID-19 is terminated under Section 564(b)(2) of the Act or the EUA is revoked under Section 564(g) of the Act. Fact Sheet for Healthcare Providers:https://[employer]/Docu ments/Xpert%20Xpres s%20SARS%20CoV-2/Fa ct%20Sheets/302-390 2%40TFKA-ODE-3%20HE ALTHCARE%20PROVIDER S%20FACT%20SHEET.pd f Fact Sheet for Healthcare Patients:https://ww [employer]/Docum ents/Xpert%20Xpress %20SARS%20Cov-2/Fac t%20Sheets/302-3801 %71OWWV-WHE-5%20PAT IENT%20FACT%20SHEET .pdf Lab Interpretation Normal (test code = 14021-6) [facility]Symptomatic ONLY) 2022-03-04 14:40:28 Test Item Value Reference Interpretation Comments Range SARS-COV2/RT-PCR Negative Negative The SARS-Co V-2 (test code = target nucleic 05237-9) acids are not detected in thi s specimen. Negat anupama results do not preclude SARS-C oV-2 infection and should not be u sed as the sole bas is for patient management decisions. Nega tive results must be combined with clinical observations, patient history , and epidemiolog ical information. A false negative result may occu r if a specimen is improperly collected, transported or handled. This S ARS CoV-2 test is a rapid, real-irving e RT-PCR test intended for e qualitative detection of nucleic acid fr om SARS-CoV-2 in a [facility]oph[facility] s suspected of COVID-19 by the ir healthcare provider. Influenza A RT-PCR Negative Negative The Flu A target (test code = [place] [address]-2) not detected in this specimen. Influenza B RT-PCR Negative Negative The Flu B target (test code = [place] 43610-7) not detected in this specimen. RSV by RT-PCR (test Negative Negative The RSV target code = 82715-0) nucleic acid s are not detected in this specimen. [place] (test code = The presence of [place]) SARS-CoV-2/FLU/RSV viral nucleic acids cannot rule out co-infections or disease caused by other viral or bacterial pathogens. As with any molecular test, mutations within the target regions of the Xpert Xpress SARS-CoV-2/Flu/RSV test could affect primer and/or probe binding resulting in failure to detect the presence of virus or the virus being detected less predictably. False negative results may occur if the virus is present at levels below the analytical limit of detection in this specimen. This Xpert Xpress SARS-CoV-2/Flu/RSV test is a rapid, real-time RT-PCR test intended for the qualitative detection of nucleic acid from Xpert Xpress SARS-CoV-2/Flu/RSV in a nasopharyngeal swab specimen collected from individuals suspected of Xpert Xpress SARS-CoV-2/Flu/RSV by their healthcare provider. Results from jadyn Xpert Xpress SARS-CoV-2/Flu/RSV test should be correlated with the clinical history, epidemiological data, and other data available to the clinician evaluating the patient. Viral nucleic acid may persist in vivo, independent of virus viability. Detection of analyte target(s) does not imply that the corresponding virus(es) are infectious or are the causative agents for clinical symptoms. This test has not been Food and Drug Administration (FDA) cleared or approved and has been authorized by FDA under an Emergency Use Authorization (EUA). This EUA will be effective until the declaration that circumstances exist justifying the authorization of the emergency use of in vitro diagnostic tests for detection and/or diagnosis of COVID-19 is terminated under Section 564(b)(2) of the Act or the EUA is revoked under Section 564(g) of the Act. Fact Sheet for Healthcare Providers:https://w [employer]/Docu ments/Xpert%20Xpres s%20SARS%20CoV-2/Fa ct%20Sheets/302-390 2%37WRBR-SOS-2%20HE ALTHCARE%20PROVIDER S%20FACT%20SHEET.pd f Fact Sheet for Healthcare Patients:https://[employer]/Docum ents/Xpert%20Xpress %20SARS%20Cov-2/Fac t%20Sheets/302-3801 %55TZMB-JXR-9%20PAT IENT%20FACT%20SHEET .pdf Lab Interpretation Normal (test code = 76205-2) [facility] [id number] 14:40:28 Test Item Value Reference Range Interpretation Comments SARS-COV2/RT-PCR Negative Negative The SARS-Co V-2 target (test code = nucleic acids a re not 3906958) detected in thi s specimen. Negat anupama results do not preclude SARS-CoV-2 infe ction and should not be u sed as the sole basis for patient management deci sions. Negative result s must be combined with c linical observations, p atient history, and epidemiological information. A false negative result may occur if a specimen i s improperly dov ected, transported or handled. This SARS CoV-2 test is a rapid, real-irving e RT-PCR test intended f or the qualitative det ection of nucleic acid fr om SARS-CoV-2 in a nasopharyngeal swab specimen collec akr from individuals arielle pected of COVID-19 by the [facility] ide. INFLUENZA A RT-PCR Negative Negative The Flu A target nucleic (test code = acids are not d etected in 1216151) this specimen. INFLUENZA B RT-PCR Negative Negative The Flu B target nucleic (test code = acids are not d etected in 8461720) this specimen. RSV RT-PCR (test Negative Negative The RSV tar get nucleic code = 9915666) acids are no t detected in this specimen. The presence of SARS-CoV-2/FLU/RSV viral nucleic acids cannot rule out co- infections or disease caused by other viral or bacterial pathogens. As with any molecular test, mutations within the target regions of the Xpert Xpress SARS-CoV-2/Flu/RSV test could affect primer and/or probe binding resulting in failure to detect the presence of virus or the virus being detected less predictably. False negative results may occur if the virus is present at levels below the analytical limit of detection in thisspecimen.This Xpert Xpress SARS-CoV-2/Flu/RSV test is a rapid, real-time RT-PCR test intended for the qualitative detection of nucleic acid from Xpert Xpress SARS-CoV-2/Flu/RSV in a nasopharyngeal swabspecimen collected from individuals suspected of Xpert Xpress SARS-CoV-2/Flu/RSV by their healthcareprovider. Results from [facility] Xpert Xpress SARS-CoV-2/Flu/RSV test should be correlated with the clinical history, epidemiological data, and other data available to the clinician evaluating the patient. Viral nucleic acid may persist in vivo, independent of virus viability. Detection of analyte target(s)does not imply that the corresponding virus(es) are infectious or are the causative agents for clinical symptoms.This test has not been Food and Drug Administration (FDA) cleared or approved and has been authorized by FDA under an Emergency Use Authorization (EUA). This EUA will be effective until thedeclaration that circumstances exist justifying the authorization of the emergency use of in vitro diagnostic tests for detection and/or diagnosis of COVID-19 is terminated under Section 564(b)(2) of the Act or the EUA is revoked under Section 564(g) of the Act.Fact Sheet for Healthcare Providers:https ://www[employer]/Documents/Xpert%20Xpress%20SARS%20CoV-2/Fact%20Sheets/302-390 2%56FOKA-NBP-9%20HEALTHCARE%20PROVIDERS%20FACT%20SHEET.pdfFact Sheet for Healthcare Patients:https://www.[employer]/Docum ents/Xpert%20Xpress%20SARS%20Cov-2/Fact%20Sheets/302-3801%56MUXS-HDT-2%20PATIENT %20FACT%20SHEET.pdfUrinalysis w/Microscopic + Reflex to [id number] 14:26:01 Test Item Value Reference Range Interpretation Comments Color, UA (test code Light Yellow = 5778-6) Clarity, UA (test Hazy code = 5767-9) Specific Commerce, UA 1.016 1.001-1.035 (test code = 5811-5) pH, UA (test code = 6.0 5.0-8.0 5803-2) Protein, UA (test 50 mg/dL Negative A code = 33366-2) Glucose, UA (test Negative Negative code = 365) Ketones, UA (test Negative Negative code = 2514-8) Bilirubin, UA (test Negative Negative code = 64758-1) Blood, UA (test code Moderate Negative A = 94341-9) Nitrite, UA (test Negative Negative code = 5802-4) Leukocytes, UA (test Large Negative A code = 5799-2) Urobilinogen, UA 0.2 mg/dL 0.2-1.0 (test code = 82153-6) RBC, UA (test code = 31 See_Comment [Autom ated 57473-7) message] The system which generated this result transmit kar reference range : /HPF. The reference range was not used to interpret this result as normal/abnormal . WBC, UA (test code = 691 See_Comment [Autom ated 5821-4) message] The system which generated this result transmit kar reference range : /HPF. The reference range was not used to interpret this result as normal/abnormal . Bacteria, UA (test None Seen code = 53516-8) Casts (test code = 3 See_Comment [Automat ed 9842-6) message] The system which generated this result transmit kar reference range : /LPF. The reference range was not used to interpret this result as normal/abnormal . Crystals, Urine (test None Seen code = 98728-1) Specimen Source (test code = 2795) [place] (test code = [place]) Contact Acid Plant Operator Helper ID - [auto]Contact Acid Plant Operator Helper ID - tech Lab Interpretation Abnormal (test code = 73750-0) [facility] 2022-[facility]-04 14:26:01 Test Item Value Reference Range Interpretation Comments Color, UA (test code Light Yellow = 5778-6) Clarity, UA (test Hazy code = 5767-9) Specific Commerce, UA 1.016 1.001-1.035 (test code = 5811-5) pH, UA (test code = 6.0 5.0-8.0 5803-2) Protein, UA (test 50 mg/dL Negative A code = 64324-1) Glucose, UA (test Negative Negative code = 365) Ketones, UA (test Negative Negative code = 2514-8) Bilirubin, UA (test Negative Negative code = 92718-9) Blood, UA (test code Moderate Negative A = 06258-9) Nitrite, UA (test Negative Negative code = 5802-4) Leukocytes, UA (test Large Negative A code = 5799-2) Urobilinogen, UA 0.2 mg/dL 0.2-1.0 (test code = 23104-6) RBC, UA (test code = 31 See_Comment [Autom ated 13905-5) message] The system which generated this result transmit kar reference range : /HPF. The reference range was not used to interpret this result as normal/abnormal . WBC, UA (test code = 691 See_Comment [Autom ated 5821-4) message] The system which generated this result transmit kar reference range : /HPF. The reference range was not used to interpret this result as normal/abnormal . Bacteria, UA (test None Seen code = 69884-5) Casts (test code = 3 See_Comment [Automat ed 9842-6) message] The system which generated this result transmit kar reference range : /LPF. The reference range was not used to interpret this result as normal/abnormal . Crystals, Urine (test None Seen code = 57033-7) Specimen Source (test code = 2795) [place] (test code = [place]) Contact Acid Plant Operator Helper ID - [auto]Contact Acid Plant Operator Helper ID - tech Lab Interpretation Abnormal (test code = 59688-9) [facility] Culture 2022-03-04 14:26:01 Test Item Value Reference Range Interpretation Comments Color, UA (test code Light Yellow = 5778-6) Clarity, UA (test Hazy code = 5767-9) Specific Commerce, UA 1.016 1.001-1.035 (test code = 5811-5) pH, UA (test code = 6.0 5.0-8.0 5803-2) Protein, UA (test 50 mg/dL Negative A code = 82122-5) Glucose, UA (test Negative Negative code = 365) Ketones, UA (test Negative Negative code = 2514-8) Bilirubin, UA (test Negative Negative code = 03727-5) Blood, UA (test code Moderate Negative A = 34091-6) Nitrite, UA (test Negative Negative code = 5802-4) Leukocytes, UA (test Large Negative A code = 5799-2) Urobilinogen, UA 0.2 mg/dL 0.2-1.0 (test code = 72643-5) RBC, UA (test code = 31 See_Comment [Autom ated 60341-4) message] The system which generated this result transmit kar reference range : /HPF. The reference range was not used to interpret this result as normal/abnormal . WBC, UA (test code = 691 See_Comment [Autom ated 5821-4) message] The system which generated this result transmit kar reference range : /HPF. The reference range was not used to interpret this result as normal/abnormal . Bacteria, UA (test None Seen code = 50436-7) Casts (test code = 3 See_Comment [Automat ed 9842-6) message] The system which generated this result transmit kar reference range : /LPF. The reference range was not used to interpret this result as normal/abnormal . Crystals, Urine (test None Seen code = 36467-5) Specimen Source (test code = 2795) [place] (test code = [place]) Contact Acid Plant Operator Helper ID - [auto]Contact Acid Plant Operator Helper ID - tech Lab Interpretation Abnormal (test code = 00065-4) [facility] Culture 2022-03-04 14:26:01 Test Item Value Reference Range Interpretation Comments Color, UA (test code Light Yellow = 5778-6) Clarity, UA (test Hazy code = 5767-9) Specific Commerce, UA 1.016 1.001-1.035 (test code = 5811-5) pH, UA (test code = 6.0 5.0-8.0 5803-2) Protein, UA (test 50 mg/dL Negative A code = 67209-8) Glucose, UA (test Negative Negative code = 365) Ketones, UA (test Negative Negative code = 2514-8) Bilirubin, UA (test Negative Negative code = 46933-7) Blood, UA (test code Moderate Negative A = 42268-9) Nitrite, UA (test Negative Negative code = 5802-4) Leukocytes, UA (test Large Negative A code = 5799-2) Urobilinogen, UA 0.2 mg/dL 0.2-1.0 (test code = 25822-6) RBC, UA (test code = 31 See_Comment [Autom ated 91566-0) message] The system which generated this result transmit kar reference range : /HPF. The reference range was not used to interpret this result as normal/abnormal . WBC, UA (test code = 691 See_Comment [Autom ated 5821-4) message] The system which generated this result transmit kar reference range : /HPF. The reference range was not used to interpret this result as normal/abnormal . Bacteria, UA (test None Seen code = 06373-4) Casts (test code = 3 See_Comment [Automat ed 9842-6) message] The system which generated this result transmit kar reference range : /LPF. The reference range was not used to interpret this result as normal/abnormal . Crystals, Urine (test None Seen code = 30293-3) Specimen Source (test code = 2795) [place] (test code = [place]) Contact Acid Plant Operator Helper ID - [auto]Contact Acid Plant Operator Helper ID - tech Lab Interpretation Abnormal (test code = 81587-8) [facility] Reflex [facility] Culture 2022-03-04 14:26:01 Test Item Value Reference Range Interpretation Comments Color, UA (test code Light Yellow = 5778-6) Clarity, UA (test Hazy code = 5767-9) Specific Commerce, UA 1.016 1.001-1.035 (test code = 5811-5) pH, UA (test code = 6.0 5.0-8.0 5803-2) Protein, UA (test 50 mg/dL Negative A code = 64877-1) Glucose, UA (test Negative Negative code = 365) Ketones, UA (test Negative Negative code = 2514-8) Bilirubin, UA (test Negative Negative code = 35265-4) Blood, UA (test code Moderate Negative A = 02371-1) Nitrite, UA (test Negative Negative code = 5802-4) Leukocytes, UA (test Large Negative A code = 5799-2) Urobilinogen, UA 0.2 mg/dL 0.2-1.0 (test code = 94093-1) RBC, UA (test code = 31 See_Comment [Autom ated 78206-9) message] The system which generated this result transmit kar reference range : /HPF. The reference range was not used to interpret this result as normal/abnormal . WBC, UA (test code = 691 See_Comment [Autom ated 5821-4) message] The system which generated this result transmit kar reference range : /HPF. The reference range was not used to interpret this result as normal/abnormal . Bacteria, UA (test None Seen code = 72003-0) Casts (test code = 3 See_Comment [Automat ed 9842-6) message] The system which generated this result transmit kar reference range : /LPF. The reference range was not used to interpret this result as normal/abnormal . Crystals, Urine (test None Seen code = 26351-0) Specimen Source (test code = 2795) [place] (test code = [place]) Contact Acid Plant Operator Helper ID - [auto]Contact Acid Plant Operator Helper ID - tech Lab Interpretation Abnormal (test code = 70566-8) [facility] Reflex to Culture 2022-03-04 14:26:01 Test Item Value Reference Range Interpretation Comments Color, UA (test code Light Yellow = 5778-6) Clarity, UA (test Hazy code = 5767-9) Specific Commerce, UA 1.016 1.001-1.035 (test code = 5811-5) pH, UA (test code = 6.0 5.0-8.0 5803-2) Protein, UA (test 50 mg/dL Negative A code = 50295-4) Glucose, UA (test Negative Negative code = 365) Ketones, UA (test Negative Negative code = 2514-8) Bilirubin, UA (test Negative Negative code = 99484-5) Blood, UA (test code Moderate Negative A = 19538-3) Nitrite, UA (test Negative Negative code = 5802-4) Leukocytes, UA (test Large Negative A code = 5799-2) Urobilinogen, UA 0.2 mg/dL 0.2-1.0 (test code = 56185-9) RBC, UA (test code = 31 See_Comment [Autom ated 27241-5) message] The system which generated this result transmit kar reference range : /HPF. The reference range was not used to interpret this result as normal/abnormal . WBC, UA (test code = 691 See_Comment [Autom ated 5821-4) message] The system which generated this result transmit kar reference range : /HPF. The reference range was not used to interpret this result as normal/abnormal . Bacteria, UA (test None Seen code = 91512-3) Casts (test code = 3 See_Comment [Automat ed 9842-6) message] The system which generated this result transmit kar reference range : /LPF. The reference range was not used to interpret this result as normal/abnormal . Crystals, Urine (test None Seen code = 36622-3) Specimen Source (test code = 2795) [place] (test code = [place]) Contact Acid Plant Operator Helper ID - [auto]Contact Acid Plant Operator Helper ID - tech Lab Interpretation Abnormal (test code = 37268-8) [facility] Reflex to Culture 2022-03-04 14:26:01 Test Item Value Reference Range Interpretation Comments Color, UA (test code Light Yellow = 5778-6) Clarity, UA (test Hazy code = 5767-9) Specific Commerce, UA 1.016 1.001-1.035 (test code = 5811-5) pH, UA (test code = 6.0 5.0-8.0 5803-2) Protein, UA (test 50 mg/dL Negative A code = 78788-6) Glucose, UA (test Negative Negative code = 365) Ketones, UA (test Negative Negative code = 2514-8) Bilirubin, UA (test Negative Negative code = 48207-9) Blood, UA (test code Moderate Negative A = 72786-4) Nitrite, UA (test Negative Negative code = 5802-4) Leukocytes, UA (test Large Negative A code = 5799-2) Urobilinogen, UA 0.2 mg/dL 0.2-1.0 (test code = 64820-1) RBC, UA (test code = 31 See_Comment [Autom ated 85105-6) message] The system which generated this result transmit kar reference range : /HPF. The reference range was not used to interpret this result as normal/abnormal . WBC, UA (test code = 691 See_Comment [Autom ated 5821-4) message] The system which generated this result transmit kar reference range : /HPF. The reference range was not used to interpret this result as normal/abnormal . Bacteria, UA (test None Seen code = 71023-2) Casts (test code = 3 See_Comment [Automat ed 9842-6) message] The system which generated this result transmit kar reference range : /LPF. The reference range was not used to interpret this result as normal/abnormal . Crystals, Urine (test None Seen code = 42104-3) Specimen Source (test code = 2795) [place] (test code = [place]) Contact Acid Plant Operator Helper ID - [auto]Contact Acid Plant Operator Helper ID - tech Lab Interpretation Abnormal (test code = 46328-0) [facility] Reflex [facility] Culture 2022-03-04 14:26:01 Test Item Value Reference Range Interpretation Comments Color, UA (test code Light Yellow = 5778-6) Clarity, UA (test Hazy code = 5767-9) Specific Commerce, UA 1.016 1.001-1.035 (test code = 5811-5) pH, UA (test code = 6.0 5.0-8.0 5803-2) Protein, UA (test 50 mg/dL Negative A code = 02521-2) Glucose, UA (test Negative Negative code = 365) Ketones, UA (test Negative Negative code = 2514-8) Bilirubin, UA (test Negative Negative code = 55398-0) Blood, UA (test code Moderate Negative A = 04897-8) Nitrite, UA (test Negative Negative code = 5802-4) Leukocytes, UA (test Large Negative A code = 5799-2) Urobilinogen, UA 0.2 mg/dL 0.2-1.0 (test code = 25562-7) RBC, UA (test code = 31 See_Comment [Autom ated 10508-0) message] The system which generated this result transmit kar reference range : /HPF. The reference range was not used to interpret this result as normal/abnormal . WBC, UA (test code = 691 See_Comment [Autom ated 5821-4) message] The system which generated this result transmit kar reference range : /HPF. The reference range was not used to interpret this result as normal/abnormal . Bacteria, UA (test None Seen code = 85935-9) Casts (test code = 3 See_Comment [Automat ed 9842-6) message] The system which generated this result transmit kar reference range : /LPF. The reference range was not used to interpret this result as normal/abnormal . Crystals, Urine (test None Seen code = 76869-5) Specimen Source (test code = 2795) [place] (test code = [place]) Contact Acid Plant Operator Helper ID - [auto]Contact Acid Plant Operator Helper ID - tech Lab Interpretation Abnormal (test code = 10391-7) [facility] [id number] 14:26:01 Test Item Value Reference Range Interpretation Comments COLOR (BEAKER) (test code = 470) Light Yellow CLARITY (BEAKER) (test code = Hazy 469) SPECIFIC GRAVITY UA (BEAKER) 1.016 1.001-1.035 (test code = 468) PH UA (BEAKER) (test code = 467) 6.0 5.0-8.0 PROTEIN UA (BEAKER) (test code = 50 mg/dL Negative A 464) GLUCOSE UA (BEAKER) (test code = Negative Negative 365) KETONES UA (BEAKER) (test code = Negative Negative 371) BILIRUBIN UA (BEAKER) (test code Negative Negative = 462) BLOOD UA (BEAKER) (test code = Moderate Negative A 461) NITRITE UA (BEAKER) (test code = Negative Negative 465) LEUKOCYTE ESTERASE UA (BEAKER) Large Negative A (test code = 466) UROBILINOGEN UA (BEAKER) (test 0.2 mg/dL 0.2-1.0 code = 463) RBC UA (BEAKER) (test code = 31 /HPF 519) WBC UA (BEAKER) (test code = 691 /HPF 520) BACTERIA (BEAKER) (test code = None Seen 517) CASTS (BEAKER) (test code = 3 /LPF 1579) CRYSTALS, URINE (BEAKER) (test None Seen code = 1521) SOURCE(BEAKER) (test code = 2795) Contact Acid [employer] Operator Helper ID - [auto]Contact Acid Plant Operator Helper ID - techCOMPREHENSIVE METABOLIC [id number] 11:52:27 Test Item Value Reference Range Interpretation Comments TOTAL PROTEIN 9.1 gm/dL 6.0-8.3 H Specimen moder ately (BEAKER) (test hemolyzed code = 770) ALBUMIN (BEAKER) 4.2 g/dL 3.5-5.0 Specimen mo derately (test code = 1145) hemolyzed ALKALINE 107 U/L 40-150 PHOSPHATASE (BEAKER) (test code = 346) BILIRUBIN TOTAL 0.3 mg/dL 0.2-1.2 Specimen mod erately (BEAKER) (test hemolyzed code = 377) SODIUM (BEAKER) 135 meq/L 136-145 L (test code = 381) POTASSIUM (BEAKER) 5.6 meq/L 3.5-5.1 H Specimen moderately (test code = 379) hemolyzed CHLORIDE (BEAKER) 107 meq/L 98-107 (test code = 382) CO2 (BEAKER) (test 19 meq/L 22-29 L code = 355) BLOOD UREA 35 mg/dL 7-21 H NITROGEN (BEAKER) (test code = 354) CREATININE 1.41 mg/dL 0.57-1.25 H Specimen modera tely (BEAKER) (test hemolyzed code = 358) GLUCOSE RANDOM 103 mg/dL 70-105 (BEAKER) (test code = 652) CALCIUM (BEAKER) 9.3 mg/dL 8.4-10.2 (test code = 697) AST (SGOT) 30 U/L 5-34 Specimen modera tely (BEAKER) (test hemolyzed code = 353) ALT (SGPT) 14 U/L 6-55 Specimen modera tely (BEAKER) (test hemolyzed code = 347) EGFR (BEAKER) 67 Interpretatio n of eGFR (test code = 1092) mL/min/1.[address] age Description sq m Result G1 Brooklynn l or high >=90 G2 Mildly decreased 60-89 G3a Mildl y to moderately 45-5 9 G3b Moderately to s everely 30-44 G4 Severl y decreased 15-29 G5 Kidney failure <15Reported eGF R is based on the CKD-EPI 2020 equation that d oes not use a race coefficientEsti mated GFR is not as accur ate as Creatinine Suzanne afshin in predicting glom erular filtration rate . Estimated GFR is not appl icable for dialysis patien ts Contact Acid Plant Operator Helper ID - JAMI MLACTIC ACID, [id number] 11:43:01 Test Item Value Reference Range Interpretation Comments LACTATE BLOOD VENOUS 0.99 mmol/L 0.50-2.20 Specime n slightly (2) (BEAKER) (test hemolyzed code = 7825) Contact Acid Plant Operator Helper ID - JAMI [id number] 11:33:58 Test Item Value Reference Range Interpretation Comments PARTIAL THROMBOPLASTIN TIME 33.3 seconds 22.5-36.0 (BEAKER) (test code = 760) PROTHROMBIN [id number] 11:33:18 Test Item Value Reference Range Interpretation Comments PROTIME (BEAKER) 14.3 seconds 11.9-14.2 H (test code = 759) INR (BEAKER) (test 1.18 See_Comment [Automat ed message] code = 370) The system [employer] generated this result transmitted ref erence range: <=5.90. The reference range was not used to int erpret this result as normal/abnormal . RECOMMENDED COUMADIN/WARFARIN INR THERAPY RANGESSTANDARD DOSE: 2.0 - 3.0 Includes: PROPHYLAXIS for venous thrombosis, systemic embolization; TREATMENT for venous thrombosis and/or pulmonary embolus.HIGH RISK: Target INR is 2.5-3.5 for patients with mechanical heart valves.CBC W/PLT COUNT & AUTO [id number] 11:29:18 Test Item Value Reference Range Interpretation Comments WHITE BLOOD CELL COUNT (BEAKER) 10.9 K/ L 3.5-10.5 H (test code = 775) RED BLOOD CELL COUNT (BEAKER) 4.72 M/ L 4.63-6.08 (test code = 761) HEMOGLOBIN (BEAKER) (test code = 13.4 GM/DL 13.7-17.5 L 410) HEMATOCRIT (BEAKER) (test code = 42.5 % 40.1-51.0 411) MEAN CORPUSCULAR VOLUME (BEAKER) 90.0 fL 79.0-92.2 (test code = 753) MEAN CORPUSCULAR HEMOGLOBIN 28.4 pg 25.7-32.2 (BEAKER) (test code = 751) MEAN CORPUSCULAR HEMOGLOBIN CONC 31.5 GM/DL 32.3-36.5 L (BEAKER) (test code = 752) RED CELL DISTRIBUTION WIDTH 15.6 % 11.6-14.4 H (BEAKER) (test code = 412) PLATELET COUNT (BEAKER) (test 268 K/CU MM 150-450 code = 756) MEAN PLATELET VOLUME (BEAKER) 10.3 fL 9.4-12.4 (test code = 754) NUCLEATED RED BLOOD CELLS 0 /100 WBC 0-0 (BEAKER) (test code = 413) NEUTROPHILS RELATIVE PERCENT 80 % (BEAKER) (test code = 429) LYMPHOCYTES RELATIVE PERCENT 10 % (BEAKER) (test code = 430) MONOCYTES RELATIVE PERCENT 9 % (BEAKER) (test code = 431) EOSINOPHILS RELATIVE PERCENT 1 % (BEAKER) (test code = 432) BASOPHILS RELATIVE PERCENT 0 % (BEAKER) (test code = 437) NEUTROPHILS ABSOLUTE COUNT 8.63 K/ L 1.78-5.38 H (BEAKER) (test code = 670) LYMPHOCYTES ABSOLUTE COUNT 1.05 K/ L 1.32-3.57 L (BEAKER) (test code = 414) MONOCYTES ABSOLUTE COUNT (BEAKER) 0.96 K/ L 0.30-0.82 H (test code = 415) EOSINOPHILS ABSOLUTE COUNT 0.13 K/ L 0.04-0.54 (BEAKER) (test code = 416) BASOPHILS ABSOLUTE COUNT (BEAKER) 0.02 K/ L 0.01-0.08 (test code = 417) IMMATURE GRANULOCYTES-RELATIVE 1 % 0-1 PERCENT (BEAKER) (test code = 2801) BLOOD GAS, [id number] 11:20:57 Test Item Value Reference Range Interpretation Comments PH VENOUS (BEAKER) (test code = 7.35 7.32-7.42 701) PCO2 VENOUS (BEAKER) (test code = 42 mm Hg 41-51 755) PO2 VENOUS (BEAKER) (test code = 31 mm Hg 25-40 702) O2 SATURATION VENOUS (BEAKER) 56.0 % 40.0-70.0 (test code = 703) HCO3 VENOUS (BEAKER) (test code = 23 mmol/L 21-29 705) BASE EXCESS VENOUS (BEAKER) (test -2.9 mmol/L -2.0-3.0 L code = 704) PATIENT TEMPERATURE (BEAKER) 37.0 (test code = 1818) FIO2 (BEAKER) (test code = 1819) 21.0 12 Lead [id number] 04:34:1012 [facility] Test Date: [id number] Name: JORGE LONGMANDepartment: 6520Patient ID: [id number] Room: 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1985 Requested By: BOUCHRA Arambula Number: [id number] Conrad MD: Ramila Wooerluly MeasurementsIntervals [place] Rate: 96 P: 41PR: 162 QRS: 26QRSD: 82 T: 57QT: 377 QTc: 430 Interpretive StatementsSINUS RHYTHMNormal EKGElectronically Signed On 01-08-2022 7:25:23 CDT by [facility]cal [facility] Drlkcl02 Lead [id number] 04:34:1012 LEAD EKG FOR [facility] Test Date: [id number] Name: JORGE MCKEONepartment: 6520Patient ID: [id number] Room: 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1985 Requested By: BOUCHRA Arambula Number: [id number] Reading MD: Ramila Ekerluly MeasurementsIntervals [place] Rate: 96 P: 41PR: 162 QRS: 26QRSD: 82 T: 57QT: 377 QTc: 430 Interpretive StatementsSINUS RHYTHMNormal EKGElectronically Signed On 01-08-2022 7:25:23 CDT by Pascal MetricsL[facility] Hospitalpayworks [place] [address] Lead [id number] 04:34:1012 LEAD EKG FOR [facility] Test Date: [id number] Name: JORGE GOINS Department: 6520Patient ID: [id number] Room: 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1985 Requested By: BOUCHRA Arambula Number: [id number] Reading MD: Ramila Haynes MeasurementsIntervals [place] Rate: 96 P: 41PR: 162 QRS: 26QRSD: 82 T: 57QT: 377 QTc: 430 Interpretive StatementsSINUS RHYTHMNormal EKGEle ctronically Signed On 01-08-2022 7:25:23 CDT by InkventorsSoapboxL[facility] Hospitalpay[facility] [id number] 05:48:10 Test Item Value Reference Range Interpretation Comments Magnesium (test code = 1.9 mg/dL 1.6-2.6 94777-5) [place] (test code = [place]) Contact Acid Plant Operator Helper ID - JAMI Alatorre Lab Interpretation (test Normal code = 69321-5) [facility]10 Test Item Value Reference Range Interpretation Comments Phosphorus (test code = 2.5 mg/dL 2.3-4.7 2777-1) [place] (test code = [place]) Contact Acid Plant Operator Helper ID - JAMI M Lab Interpretation (test Normal code = 49802-3) [facility] 05:48:10 Test Item Value Reference Range Interpretation Comments Magnesium (test code = 1.9 mg/dL 1.6-2.6 32560-3) [place] (test code = [place]) Contact Acid Plant Operator Helper ID - JAMI Lab Interpretation (test Normal code = 38275-7) [facility] 05:48:10 Test Item Value Reference Range Interpretation Comments Phosphorus (test code = 2.5 mg/dL 2.3-4.7 2777-1) [place] (test code = [place]) Contact Acid Plant Operator Helper ID - JAMI Lab Interpretation (test Normal code = 73348-7) [facility] 05:48:10 Test Item Value Reference Range Interpretation Comments Magnesium (test code = 1.9 mg/dL 1.6-2.6 92433-5) [place] (test code = [place]) Contact Acid Plant Operator Helper ID - JAMI Lab Interpretation (test Normal code = 13254-6) [facility] 05:48:10 Test Item Value Reference Range Interpretation Comments Phosphorus (test code = 2.5 mg/dL 2.3-4.7 2777-1) [place] (test code = [place]) Contact Acid Plant Operator Helper ID - JAMI Lab Interpretation (test Normal code = 84520-7) [facility] 05:[facility]10 Test Item Value Reference Range Interpretation Comments MAGNESIUM (BEAKER) (test code = 1.9 mg/dL 1.6-2.6 627) Contact Acid Plant Operator Helper ID - JAMI [id number] 05:48:10 Test Item Value Reference Range Interpretation Comments PHOSPHORUS (BEAKER) (test code = 2.5 mg/dL 2.3-4.7 604) Contact Acid Plant Operator Helper ID - JAMI MBasic Metabolic [id number] 05:48:09 Test Item Value Reference Range Interpretation Comments Sodium (test code = 136 meq/L 374-035 4595-2) Potassium (test code = 5.0 meq/L 3.5-5.1 2823-3) Chloride (test code = 107 meq/L 98-107 2075-0) CO2 (test code = 23 meq/L -29 2027-9) BUN (test code = 24 mg/dL 7-21 H 3094-0) Creatinine (test code 0.87 mg/dL 0.57-1.25 = 2160-0) Glucose (test code = 88 mg/dL 70-105 2345-7) Calcium (test code = 8.9 mg/dL 8.4-10.2 62364-3) EGFR (test code = 121 mL/min/1.73 [place] [address]-1) NOT ACCURATE CREATININE CLEARANCE IN PREDICTING GLOMERULAR FILTRATION RATE . ESTIMATED GFR I S NOT APPLICABLE FOR DIALYSIS PATIENTS. [place] (test code = [place]) Contact Acid Plant Operator Helper ID - JAMI M Lab Interpretation Abnormal (test code = 75433-9) [facility] Metabolic [id number] 05:48:09 Test Item Value Reference Range Interpretation Comments Sodium (test code = 136 meq/L 863-633 1093-2) Potassium (test code = 5.0 meq/L 3.5-5.1 2823-3) Chloride (test code = 107 meq/L 98-107 2075-0) CO2 (test code = 23 meq/L -29 8-9) BUN (test code = 24 mg/dL 7-21 H 3094-0) Creatinine (test code 0.87 mg/dL 0.57-1.25 = 2160-0) Glucose (test code = 88 mg/dL 70-105 2345-7) Calcium (test code = 8.9 mg/dL 8.4-10.2 65876-0) EGFR (test code = 121 mL/min/1.[place] [address]-6) NOT ACCURATE CREATININE CLEARANCE IN PREDICTING GLOMERULAR FILTRATION RATE . ESTIMATED GFR I S NOT APPLICABLE FOR DIALYSIS PATIENTS. [place] (test code = [place]) Contact Acid Plant Operator Helper ID - JAMI M Lab Interpretation Abnormal (test code = 27030-9) [facility] Metabolic [id number] 05:48:09 Test Item Value Reference Range Interpretation Comments Sodium (test code = 136 meq/L 883-421 8251-2) Potassium (test code = 5.0 meq/L 3.5-5.1 2823-3) Chloride (test code = 107 meq/L 98-107 2075-0) CO2 (test code = 23 meq/L 22-29 2028-9) BUN (test code = 24 mg/dL 7-21 H 3094-0) Creatinine (test code 0.87 mg/dL 0.57-1.25 = 2160-0) Glucose (test code = 88 mg/dL 70-105 2345-7) Calcium (test code = 8.9 mg/dL 8.4-10.2 31093-5) EGFR (test code = 121 mL/min/1.[place] [address]-6) NOT ACCURATE CREATININE CLEARANCE IN PREDICTING GLOMERULAR FILTRATION RATE . ESTIMATED GFR I S NOT APPLICABLE FOR DIALYSIS PATIENTS. [place] (test code = [place]) Contact Acid Plant Operator Helper ID - JAMI M Lab Interpretation Abnormal (test code = 24290-9) [facility] METABOLIC [id number] 05:48:09 Test Item Value Reference Range Interpretation Comments SODIUM (BEAKER) 136 meq/L 136-145 (test code = 381) POTASSIUM (BEAKER) 5.0 meq/L 3.5-5.1 (test code = 379) CHLORIDE (BEAKER) 107 meq/L 98-107 (test code = 382) CO2 (BEAKER) (test 23 meq/L 22-29 code = 355) BLOOD UREA NITROGEN 24 mg/dL 7-21 H (BEAKER) (test code = 354) CREATININE (BEAKER) 0.87 mg/dL 0.57-1.25 (test code = 358) GLUCOSE RANDOM 88 mg/dL 70-105 (BEAKER) (test code = 652) CALCIUM (BEAKER) 8.9 mg/dL 8.4-10.2 (test code = 697) EGFR (BEAKER) (test 121 mL/min/1.73 ESTIM ATED GFR IS code = 1092) sq m NOT ACCURATE CREATININE CLEARANCE IN PREDICTING GLOMERULAR FILTRATION RATE . ESTIMATED GFR I S NOT APPLICABLE FOR DIALYSIS PATIEN TS. Contact Acid Plant Operator Helper ID - JAMI MCBC W/PLT COUNT & AUTO [id number] 05:08:15 Test Item Value Reference Range Interpretation Comments WHITE BLOOD CELL COUNT (BEAKER) 6.1 K/ L 3.5-10.5 (test code = 775) RED BLOOD CELL COUNT (BEAKER) 3.42 M/ L 4.63-6.08 L (test code = 761) HEMOGLOBIN (BEAKER) (test code = 9.5 GM/DL 13.7-17.5 L 410) HEMATOCRIT (BEAKER) (test code = 31.0 % 40.1-51.0 L 411) MEAN CORPUSCULAR VOLUME (BEAKER) 90.6 fL 79.0-92.2 (test code = 753) MEAN CORPUSCULAR HEMOGLOBIN 27.8 pg 25.7-32.2 (BEAKER) (test code = 751) MEAN CORPUSCULAR HEMOGLOBIN CONC 30.6 GM/DL 32.3-36.5 L (BEAKER) (test code = 752) RED CELL DISTRIBUTION WIDTH 16.1 % 11.6-14.4 H (BEAKER) (test code = 412) PLATELET COUNT (BEAKER) (test 395 K/CU MM 150-450 code = 756) MEAN PLATELET VOLUME (BEAKER) 10.5 fL 9.4-12.4 (test code = 754) NUCLEATED RED BLOOD CELLS 0 /100 WBC 0-0 (BEAKER) (test code = 413) NEUTROPHILS RELATIVE PERCENT 55 % (BEAKER) (test code = 429) LYMPHOCYTES RELATIVE PERCENT 28 % (BEAKER) (test code = 430) MONOCYTES RELATIVE PERCENT 8 % (BEAKER) (test code = 431) EOSINOPHILS RELATIVE PERCENT 7 % (BEAKER) (test code = 432) BASOPHILS RELATIVE PERCENT 1 % (BEAKER) (test code = 437) NEUTROPHILS ABSOLUTE COUNT 3.37 K/ L 1.78-5.38 (BEAKER) (test code = 670) LYMPHOCYTES ABSOLUTE COUNT 1.70 K/ L 1.32-3.57 (BEAKER) (test code = 414) MONOCYTES ABSOLUTE COUNT (BEAKER) 0.49 K/ L 0.30-0.82 (test code = 415) EOSINOPHILS ABSOLUTE COUNT 0.45 K/ L 0.04-0.54 (BEAKER) (test code = 416) BASOPHILS ABSOLUTE COUNT (BEAKER) 0.03 K/ L 0.01-0.08 (test code = 417) IMMATURE GRANULOCYTES-RELATIVE 1 % 0-1 PERCENT (BEAKER) (test code = 2801) BLOOD [id number] 14:01:17 Test Item Value Reference Range Interpretation Comments CULTURE (BEAKER) (test No growth in 5 days code = 1095) The specimen volume collected for this blood culture was below the optimum (10 mL per bottle or 20 mL total). Use of lower volumes may adversely affect recovery and/or detection times of some organisms.BLOOD [id number] 14:01:17 Test Item Value Reference Range Interpretation Comments CULTURE (BEAKER) (test No growth in 5 days code = 1095) The specimen volume collected for this blood culture was below the optimum (10 mL per bottle or 20 mL total). Use of lower volumes may adversely affect recovery and/or detection times of some organisms.[id number] 07:17:04 Test Item Value Reference Range Interpretation Comments MAGNESIUM (BEAKER) (test code = 2.0 mg/dL 1.6-2.6 627) Contact Acid Plant Operator Helper ID - [id number] 07:17:04 Test Item Value Reference Range Interpretation Comments PHOSPHORUS (BEAKER) (test code = 3.5 mg/dL 2.3-4.7 604) Contact Acid Plant Operator Helper ID - DBBASIC METABOLIC [id number] 07:17:03 Test Item Value Reference Range Interpretation Comments SODIUM (BEAKER) 133 meq/L 136-145 L (test code = 381) POTASSIUM (BEAKER) 4.7 meq/L 3.5-5.1 (test code = 379) CHLORIDE (BEAKER) 106 meq/L 98-107 (test code = 382) CO2 (BEAKER) (test 21 meq/L 22-29 L code = 355) BLOOD UREA NITROGEN 22 mg/dL 7-21 H (BEAKER) (test code = 354) CREATININE (BEAKER) 0.85 mg/dL 0.57-1.25 (test code = 358) GLUCOSE RANDOM 89 mg/dL 70-105 (BEAKER) (test code = 652) CALCIUM (BEAKER) 9.0 mg/dL 8.4-10.2 (test code = 697) EGFR (BEAKER) (test 124 mL/min/1.73 ESTIM ATED GFR IS code = 1092) sq m NOT ACCURATE CREATININE CLEARANCE IN PREDICTING GLOMERULAR FILTRATION RATE . ESTIMATED GFR I S NOT APPLICABLE FOR DIALYSIS PATIEN TS. Contact Acid Plant Operator Helper ID - DBCBC W/PLT COUNT & AUTO [id number] 06:40:52 Test Item Value Reference Range Interpretation Comments WHITE BLOOD CELL COUNT (BEAKER) 5.6 K/ L 3.5-10.5 (test code = 775) RED BLOOD CELL COUNT (BEAKER) 3.40 M/ L 4.63-6.08 L (test code = 761) HEMOGLOBIN (BEAKER) (test code = 9.3 GM/DL 13.7-17.5 L 410) HEMATOCRIT (BEAKER) (test code = 31.8 % 40.1-51.0 L 411) MEAN CORPUSCULAR VOLUME (BEAKER) 93.5 fL 79.0-92.2 H (test code = 753) MEAN CORPUSCULAR HEMOGLOBIN 27.4 pg 25.7-32.2 (BEAKER) (test code = 751) MEAN CORPUSCULAR HEMOGLOBIN CONC 29.2 GM/DL 32.3-36.5 L (BEAKER) (test code = 752) RED CELL DISTRIBUTION WIDTH 16.2 % 11.6-14.4 H (BEAKER) (test code = 412) PLATELET COUNT (BEAKER) (test 364 K/CU MM 150-450 code = 756) MEAN PLATELET VOLUME (BEAKER) 10.0 fL 9.4-12.4 (test code = 754) NUCLEATED RED BLOOD CELLS 0 /100 WBC 0-0 (BEAKER) (test code = 413) NEUTROPHILS RELATIVE PERCENT 56 % (BEAKER) (test code = 429) LYMPHOCYTES RELATIVE PERCENT 28 % (BEAKER) (test code = 430) MONOCYTES RELATIVE PERCENT 8 % (BEAKER) (test code = 431) EOSINOPHILS RELATIVE PERCENT 7 % (BEAKER) (test code = 432) BASOPHILS RELATIVE PERCENT 1 % (BEAKER) (test code = 437) NEUTROPHILS ABSOLUTE COUNT 3.10 K/ L 1.78-5.38 (BEAKER) (test code = 670) LYMPHOCYTES ABSOLUTE COUNT 1.53 K/ L 1.32-3.57 (BEAKER) (test code = 414) MONOCYTES ABSOLUTE COUNT (BEAKER) 0.42 K/ L 0.30-0.82 (test code = 415) EOSINOPHILS ABSOLUTE COUNT 0.41 K/ L 0.04-0.54 (BEAKER) (test code = 416) BASOPHILS ABSOLUTE COUNT (BEAKER) 0.04 K/ L 0.01-0.08 (test code = 417) IMMATURE GRANULOCYTES-RELATIVE 1 % 0-1 PERCENT (BEAKER) (test code = 2801) [id number] 06:22:05 Test Item Value Reference Range Interpretation Comments PHOSPHORUS (BEAKER) (test code = 3.5 mg/dL 2.3-4.7 604) Contact Acid Plant Operator Helper ID - JAMI MBASIC METABOLIC [id number] 06:22:04 Test Item Value Reference Range Interpretation Comments SODIUM (BEAKER) 135 meq/L 136-145 L (test code = 381) POTASSIUM (BEAKER) 4.7 meq/L 3.5-5.1 (test code = 379) CHLORIDE (BEAKER) 106 meq/L 98-107 (test code = 382) CO2 (BEAKER) (test 22 meq/L 22-29 code = 355) BLOOD UREA NITROGEN 19 mg/dL 7-21 (BEAKER) (test code = 354) CREATININE (BEAKER) 0.85 mg/dL 0.57-1.25 (test code = 358) GLUCOSE RANDOM 87 mg/dL 70-105 (BEAKER) (test code = 652) CALCIUM (BEAKER) 9.2 mg/dL 8.4-10.2 (test code = 697) EGFR (BEAKER) (test 124 mL/min/1.73 ESTIM ATED GFR IS code = 1092) sq m NOT ACCURATE CREATININE CLEARANCE IN PREDICTING GLOMERULAR FILTRATION RATE . ESTIMATED GFR I S NOT APPLICABLE FOR DIALYSIS PATIEN TS. Contact Acid Plant Operator Helper ID - JAMI [id number] 06:22:04 Test Item Value Reference Range Interpretation Comments MAGNESIUM (BEAKER) (test code = 1.9 mg/dL 1.6-2.6 627) Contact Acid Plant Operator Helper ID - JAMI MCBC W/PLT COUNT & AUTO [id number] 06:02:59 Test Item Value Reference Range Interpretation Comments WHITE BLOOD CELL COUNT (BEAKER) 6.1 K/ L 3.5-10.5 (test code = 775) RED BLOOD CELL COUNT (BEAKER) 3.53 M/ L 4.63-6.08 L (test code = 761) HEMOGLOBIN (BEAKER) (test code = 9.6 GM/DL 13.7-17.5 L 410) HEMATOCRIT (BEAKER) (test code = 32.2 % 40.1-51.0 L 411) MEAN CORPUSCULAR VOLUME (BEAKER) 91.2 fL 79.0-92.2 (test code = 753) MEAN CORPUSCULAR HEMOGLOBIN 27.2 pg 25.7-32.2 (BEAKER) (test code = 751) MEAN CORPUSCULAR HEMOGLOBIN CONC 29.8 GM/DL 32.3-36.5 L (BEAKER) (test code = 752) RED CELL DISTRIBUTION WIDTH 16.0 % 11.6-14.4 H (BEAKER) (test code = 412) PLATELET COUNT (BEAKER) (test 373 K/CU MM 150-450 code = 756) MEAN PLATELET VOLUME (BEAKER) 10.1 fL 9.4-12.4 (test code = 754) NUCLEATED RED BLOOD CELLS 0 /100 WBC 0-0 (BEAKER) (test code = 413) NEUTROPHILS RELATIVE PERCENT 60 % (BEAKER) (test code = 429) LYMPHOCYTES RELATIVE PERCENT 24 % (BEAKER) (test code = 430) MONOCYTES RELATIVE PERCENT 8 % (BEAKER) (test code = 431) EOSINOPHILS RELATIVE PERCENT 7 % (BEAKER) (test code = 432) BASOPHILS RELATIVE PERCENT 1 % (BEAKER) (test code = 437) NEUTROPHILS ABSOLUTE COUNT 3.60 K/ L 1.78-5.38 (BEAKER) (test code = 670) LYMPHOCYTES ABSOLUTE COUNT 1.46 K/ L 1.32-3.57 (BEAKER) (test code = 414) MONOCYTES ABSOLUTE COUNT (BEAKER) 0.49 K/ L 0.30-0.82 (test code = 415) EOSINOPHILS ABSOLUTE COUNT 0.42 K/ L 0.04-0.54 (BEAKER) (test code = 416) BASOPHILS ABSOLUTE COUNT (BEAKER) 0.03 K/ L 0.01-0.08 (test code = 417) IMMATURE GRANULOCYTES-RELATIVE 1 % 0-1 PERCENT (BEAKER) (test code = 2801) [id number] 05:37:52 Test Item Value Reference Range Interpretation Comments MAGNESIUM (BEAKER) (test code = 2.0 mg/dL 1.6-2.6 627) Contact Acid Plant Operator Helper ID - PIAYA [id number] 05:37:52 Test Item Value Reference Range Interpretation Comments PHOSPHORUS (BEAKER) (test code = 3.2 mg/dL 2.3-4.7 604) Contact Acid Plant Operator Helper ID - PIAYA LBASIC METABOLIC [id number] 05:37:51 Test Item Value Reference Range Interpretation Comments SODIUM (BEAKER) 133 meq/L 136-145 L (test code = 381) POTASSIUM (BEAKER) 4.7 meq/L 3.5-5.1 (test code = 379) CHLORIDE (BEAKER) 103 meq/L 98-107 (test code = 382) CO2 (BEAKER) (test 23 meq/L 22-29 code = 355) BLOOD UREA NITROGEN 17 mg/dL 7-21 (BEAKER) (test code = 354) CREATININE (BEAKER) 0.93 mg/dL 0.57-1.25 (test code = 358) GLUCOSE RANDOM 85 mg/dL 70-105 (BEAKER) (test code = 652) CALCIUM (BEAKER) 9.3 mg/dL 8.4-10.2 (test code = 697) EGFR (BEAKER) (test 112 mL/min/1.73 ESTIM ATED GFR IS code = 1092) sq m NOT ACCURATE CREATININE CLEARANCE IN PREDICTING GLOMERULAR FILTRATION RATE . ESTIMATED GFR I S NOT APPLICABLE FOR DIALYSIS PATIEN TS. Contact Acid Plant Operator Helper ID - PIAYA LCBC W/PLT COUNT & AUTO [id number] 05:13:57 Test Item Value Reference Range Interpretation Comments WHITE BLOOD CELL COUNT (BEAKER) 6.2 K/ L 3.5-10.5 (test code = 775) RED BLOOD CELL COUNT (BEAKER) 3.32 M/ L 4.63-6.08 L (test code = 761) HEMOGLOBIN (BEAKER) (test code = 9.1 GM/DL 13.7-17.5 L 410) HEMATOCRIT (BEAKER) (test code = 29.7 % 40.1-51.0 L 411) MEAN CORPUSCULAR VOLUME (BEAKER) 89.5 fL 79.0-92.2 (test code = 753) MEAN CORPUSCULAR HEMOGLOBIN 27.4 pg 25.7-32.2 (BEAKER) (test code = 751) MEAN CORPUSCULAR HEMOGLOBIN CONC 30.6 GM/DL 32.3-36.5 L (BEAKER) (test code = 752) RED CELL DISTRIBUTION WIDTH 16.0 % 11.6-14.4 H (BEAKER) (test code = 412) PLATELET COUNT (BEAKER) (test 340 K/CU MM 150-450 code = 756) MEAN PLATELET VOLUME (BEAKER) 10.1 fL 9.4-12.4 (test code = 754) NUCLEATED RED BLOOD CELLS 0 /100 WBC 0-0 (BEAKER) (test code = 413) NEUTROPHILS RELATIVE PERCENT 61 % (BEAKER) (test code = 429) LYMPHOCYTES RELATIVE PERCENT 22 % (BEAKER) (test code = 430) MONOCYTES RELATIVE PERCENT 9 % (BEAKER) (test code = 431) EOSINOPHILS RELATIVE PERCENT 7 % (BEAKER) (test code = 432) BASOPHILS RELATIVE PERCENT 1 % (BEAKER) (test code = 437) NEUTROPHILS ABSOLUTE COUNT 3.79 K/ L 1.78-5.38 (BEAKER) (test code = 670) LYMPHOCYTES ABSOLUTE COUNT 1.37 K/ L 1.32-3.57 (BEAKER) (test code = 414) MONOCYTES ABSOLUTE COUNT (BEAKER) 0.53 K/ L 0.30-0.82 (test code = 415) EOSINOPHILS ABSOLUTE COUNT 0.42 K/ L 0.04-0.54 (BEAKER) (test code = 416) BASOPHILS ABSOLUTE COUNT (BEAKER) 0.03 K/ L 0.01-0.08 (test code = 417) IMMATURE GRANULOCYTES-RELATIVE 1 % 0-1 PERCENT (BEAKER) (test code = 2801) [id number] 05:59:05 Test Item Value Reference Range Interpretation Comments PHOSPHORUS (BEAKER) (test code = 2.6 mg/dL 2.3-4.7 604) Contact Acid Plant Operator Helper ID - JAMI MBASIC METABOLIC [id number] 05:59:04 Test Item Value Reference Range Interpretation Comments SODIUM (BEAKER) 132 meq/L 136-145 L (test code = 381) POTASSIUM (BEAKER) 4.5 meq/L 3.5-5.1 (test code = 379) CHLORIDE (BEAKER) 103 meq/L 98-107 (test code = 382) CO2 (BEAKER) (test 22 meq/L 22-29 code = 355) BLOOD UREA NITROGEN 18 mg/dL 7-21 (BEAKER) (test code = 354) CREATININE (BEAKER) 0.95 mg/dL 0.57-1.25 (test code = 358) GLUCOSE RANDOM 94 mg/dL 70-105 (BEAKER) (test code = 652) CALCIUM (BEAKER) 8.7 mg/dL 8.4-10.2 (test code = 697) EGFR (BEAKER) (test 109 mL/min/1.73 ESTIM ATED GFR IS code = 1092) sq m NOT ACCURATE CREATININE CLEARANCE IN PREDICTING GLOMERULAR FILTRATION RATE . ESTIMATED GFR I S NOT APPLICABLE FOR DIALYSIS PATIEN TS. Contact Acid Plant Operator Helper ID - JAMI [id number] 05:59:04 Test Item Value Reference Range Interpretation Comments MAGNESIUM (BEAKER) (test code = 2.1 mg/dL 1.6-2.6 627) Contact Acid Plant Operator Helper ID - JAMI MCBC W/PLT COUNT & AUTO [id number] 05:09:38 Test Item Value Reference Range Interpretation Comments WHITE BLOOD CELL COUNT (BEAKER) 7.0 K/ L 3.5-10.5 (test code = 775) RED BLOOD CELL COUNT (BEAKER) 3.18 M/ L 4.63-6.08 L (test code = 761) HEMOGLOBIN (BEAKER) (test code = 8.8 GM/DL 13.7-17.5 L 410) HEMATOCRIT (BEAKER) (test code = 29.0 % 40.1-51.0 L 411) MEAN CORPUSCULAR VOLUME (BEAKER) 91.2 fL 79.0-92.2 (test code = 753) MEAN CORPUSCULAR HEMOGLOBIN 27.7 pg 25.7-32.2 (BEAKER) (test code = 751) MEAN CORPUSCULAR HEMOGLOBIN CONC 30.3 GM/DL 32.3-36.5 L (BEAKER) (test code = 752) RED CELL DISTRIBUTION WIDTH 16.2 % 11.6-14.4 H (BEAKER) (test code = 412) PLATELET COUNT (BEAKER) (test 311 K/CU MM 150-450 code = 756) MEAN PLATELET VOLUME (BEAKER) 10.1 fL 9.4-12.4 (test code = 754) NUCLEATED RED BLOOD CELLS 0 /100 WBC 0-0 (BEAKER) (test code = 413) NEUTROPHILS RELATIVE PERCENT 68 % (BEAKER) (test code = 429) LYMPHOCYTES RELATIVE PERCENT 18 % (BEAKER) (test code = 430) MONOCYTES RELATIVE PERCENT 8 % (BEAKER) (test code = 431) EOSINOPHILS RELATIVE PERCENT 6 % (BEAKER) (test code = 432) BASOPHILS RELATIVE PERCENT 0 % (BEAKER) (test code = 437) NEUTROPHILS ABSOLUTE COUNT 4.76 K/ L 1.78-5.38 (BEAKER) (test code = 670) LYMPHOCYTES ABSOLUTE COUNT 1.23 K/ L 1.32-3.57 L (BEAKER) (test code = 414) MONOCYTES ABSOLUTE COUNT (BEAKER) 0.53 K/ L 0.30-0.82 (test code = 415) EOSINOPHILS ABSOLUTE COUNT 0.38 K/ L 0.04-0.54 (BEAKER) (test code = 416) BASOPHILS ABSOLUTE COUNT (BEAKER) 0.02 K/ L 0.01-0.08 (test code = 417) IMMATURE GRANULOCYTES-RELATIVE 1 % 0-1 PERCENT (BEAKER) (test code = 2801) BASIC METABOLIC [id number] 04:42:57 Test Item Value Reference Range Interpretation Comments SODIUM (BEAKER) 132 meq/L 136-145 L (test code = 381) POTASSIUM (BEAKER) 4.5 meq/L 3.5-5.1 (test code = 379) CHLORIDE (BEAKER) 104 meq/L 98-107 (test code = 382) CO2 (BEAKER) (test 21 meq/L 22-29 L code = 355) BLOOD UREA NITROGEN 27 mg/dL 7-21 H (BEAKER) (test code = 354) CREATININE (BEAKER) 1.16 mg/dL 0.57-1.25 (test code = 358) GLUCOSE RANDOM 116 mg/dL 70-105 H (BEAKER) (test code = 652) CALCIUM (BEAKER) 8.2 mg/dL 8.4-10.2 L (test code = 697) EGFR (BEAKER) (test 87 mL/min/1.73 ESTIMA KAR GFR IS code = 1092) sq m NOT ACCURATE CREATININE CLEARANCE IN PREDICTING GLOMERULAR FILTRATION RATE . ESTIMATED GFR I S NOT APPLICABLE FOR DIALYSIS PATIEN TS. Contact Acid Plant Operator Helper ID - SHAHRIAR [id number] 04:42:57 Test Item Value Reference Range Interpretation Comments MAGNESIUM (BEAKER) (test code = 2.0 mg/dL 1.6-2.6 627) Contact Acid Plant Operator Helper ID - SHAHRIAR [id number] 04:42:57 Test Item Value Reference Range Interpretation Comments PHOSPHORUS (BEAKER) (test code = 3.2 mg/dL 2.3-4.7 604) Contact Acid Plant Operator Helper ID Keyon BESS WCBC W/PLT COUNT & AUTO [id number] 04:21:00 Test Item Value Reference Range Interpretation Comments WHITE BLOOD CELL COUNT (BEAKER) 7.9 K/ L 3.5-10.5 (test code = 775) RED BLOOD CELL COUNT (BEAKER) 3.03 M/ L 4.63-6.08 L (test code = 761) HEMOGLOBIN (BEAKER) (test code = 8.3 GM/DL 13.7-17.5 L 410) HEMATOCRIT (BEAKER) (test code = 28.0 % 40.1-51.0 L 411) MEAN CORPUSCULAR VOLUME (BEAKER) 92.4 fL 79.0-92.2 H (test code = 753) MEAN CORPUSCULAR HEMOGLOBIN 27.4 pg 25.7-32.2 (BEAKER) (test code = 751) MEAN CORPUSCULAR HEMOGLOBIN CONC 29.6 GM/DL 32.3-36.5 L (BEAKER) (test code = 752) RED CELL DISTRIBUTION WIDTH 16.6 % 11.6-14.4 H (BEAKER) (test code = 412) PLATELET COUNT (BEAKER) (test 290 K/CU MM 150-450 code = 756) MEAN PLATELET VOLUME (BEAKER) 9.9 fL 9.4-12.4 (test code = 754) NUCLEATED RED BLOOD CELLS 0 /100 WBC 0-0 (BEAKER) (test code = 413) NEUTROPHILS RELATIVE PERCENT 73 % (BEAKER) (test code = 429) LYMPHOCYTES RELATIVE PERCENT 12 % (BEAKER) (test code = 430) MONOCYTES RELATIVE PERCENT 9 % (BEAKER) (test code = 431) EOSINOPHILS RELATIVE PERCENT 5 % (BEAKER) (test code = 432) BASOPHILS RELATIVE PERCENT 1 % (BEAKER) (test code = 437) NEUTROPHILS ABSOLUTE COUNT 5.75 K/ L 1.78-5.38 H (BEAKER) (test code = 670) LYMPHOCYTES ABSOLUTE COUNT 0.94 K/ L 1.32-3.57 L (BEAKER) (test code = 414) MONOCYTES ABSOLUTE COUNT (BEAKER) 0.70 K/ L 0.30-0.82 (test code = 415) EOSINOPHILS ABSOLUTE COUNT 0.43 K/ L 0.04-0.54 (BEAKER) (test code = 416) BASOPHILS ABSOLUTE COUNT (BEAKER) 0.04 K/ L 0.01-0.08 (test code = 417) IMMATURE GRANULOCYTES-RELATIVE 1 % 0-1 PERCENT (BEAKER) (test code = 2801) CTA, CHEST, ABDOMEN - PELVIS, FOR [id number] 18:21:00Patient taken benadryl for iodine allergy.Unlisted Reason for Exam - Click Yes and Enter Reason Below->YesUnlisted Reason for Exam->hypotensive, c/f dissection/AAA. PLEASE SCAN DOWN THROUGH PELVIS [facility] : 1985 Sex: MFINAL REPORT CTA, CHEST, ABDOMEN - PELVIS, FOR DISSECTION HISTORY: Thoracic aorta disease, post repair (TEVAR), follow uphypotensive, c/f dissection/AAA. PLEASE SCAN DOWN THROUGH PELVIS COMPARISON: CTA chest abdomen and pelvis 09/10/2020 TECHNIQUE: CT angiography of the chest abdomen and pelvis, including precontrast, arterial phase, and delayed phase. Volumetric 3-D images were reconstructed on a dedicated workstation, including multiplanar MIP reconstruction and volumetric rendering. The examination was performed according to the departmental dose-optimization program, which includes automated exposure control, adjustment of the mA and/or kV according to patient size and/or use of iterative reconstruction technique. FINDINGS: Vascular Findings:Atherosclerotic calcifications: None. Aorta: Endostent beginning at the aortic isthmus, through the entire descending thoracic aorta, extending into the abdominal aorta, and terminates above the aortic bifurcation, inferior to the takeoff of the ABIMAEL. Redemonstration of a dissection of the inferior descending thoracic aorta and abdominalaorta, with contrast extending into the false lumen to the level of the diaphragmatic hiatus, dissection extends into the left common iliac artery and right common and internal iliac arteries, no change. Quantitative dimensions of the aorta are as follows: - 3.6 cm at the sinuses of Valsalva, no change (the sino-tubular junction is preserved)- 2.9 cm at the proximal ascending thoracic aorta, no change; - 3.6 cm, was 3.7 cm, at the mid ascending aorta; -3.6 cm at the distal ascending aorta, was 3.8 cm; -3.2 cm at the mid transverse arch, no change -3.1 at the proximal descending aorta; no change - 3.2 cm at the mid descending aorta; no change - 3.3 cm at the diaphragmatic hiatus, no change. - 3.3 cmat the level of the celiac axis, no change- 2.8 cm above the renal arteries, was 3.0 cm- 3.0 cm at the bifurcation, was 2.9 cm Arch vessels: 2 vessel arch, patentCeliac artery: Mildly narrowed proximally with otherwise patent and arises from the true lumen.SMA: Patent. Arises from the true lumenIMA: Patent. Arises from the true lumenRenal arteries: Patent bilaterally, right renal artery probably arises from the false lumen, left renal artery arises from the true lumen.Right common iliac artery: Unchanged, dissected, both lumens patent, ectatic up to 1.7 cmLeft common iliac artery: Unchanged, dissect ed to the mid portion, ectatic up to 1.7 cm, both lumens patentRight external iliac artery: 2 stents, patent, arises from the true lumenLeft external iliac artery: Patent, arises from the true lumenRight internal iliac artery: Unchanged, dissected, patent lumensLeft internal iliac artery: Patent, arises from the true lumen SMV: Patent.IMV: Patent.IVC: Patent. Non-Vascular Findings:Lungs, airways, pleura: Trace right basilar atelectasis and otherwise clear. Airways are patent and no pleural effusion or pneumothorax.Heart and mediastinum: Mildly dilated main pulmonary artery suggesting pulmonary hyper tension. Otherwise unremarkable. No lymphadenopathy.Thyroid and esophagus: UnremarkableLiver: Unremarkable.Gallbladder and bile ducts: Surgically absent gallbladder. No biliary dilatation.Spleen: Unremarkable.Pancreas: Unremarkable.Adrenals: UnremarkableKidneys and ureters: Right renal hypodensities too small to characterize, probably cysts.Bowel: Nondilated bowel with no wall thickening. Appendix isnormalBladder: Mild circumferential wall thickening.Reproductive organs: Unremarkable.Lymph nodes: Un remarkable.Peritoneum: Unremarkable. Retroperitoneum: Presacral edemaVessels: As above.Abdominal wall: A decubitus wound overlying the sacrum and coccyx with associated skin thickening and a small amount of soft tissue gas in the left gluteal musculature, wound nearly extends to bone.Bones: Sclerotic remodeling with some bone loss of the distal sacrum and coccyx, new from prior exam. Mild sclerotic changes in the bilateral femoral heads concerning for avascular necrosis. IMPRESSION: 1.A sacral decubitus ulcer which nearly extends to bone. Sclerotic and lytic remodeling of the distal sacrum and coccyx related to chronic osteomyelitis. Small amount of soft tissue gas in the left gluteal musculature,gas-forming soft tissue infection not excluded. 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 None of these findings are convincingly changed from 09/10/2020. 3.Quantitative dimensions of the thoracic and abdominal aorta as above. 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 A follow-up is recommended in one year. 4.Patent right external iliac artery stents Signed: [facility] Verified Date/Time: 08/17/2021 18:21:45 Reading Location: [facility] C013Y CT Body Reading Room C-Reactive [id number] 17:28:45 Test Item Value Reference Range Interpretation Comments CRP (test code = 676) 14.83 mg/dL 0.00-0.50 H CAROLINA (test code = CAROLINA) Contact Acid Plant Operator Helper ID - BS Lab Interpretation (test Abnormal code = 03898-4) [facility] [id number] 17:28:45 Test Item Value Reference Range Interpretation Comments CRP (test code = 676) 14.83 mg/dL 0.00-0.50 H CAROLINA (test code = CAROLINA) Contact Acid Plant Operator Helper ID - BS Lab Interpretation (test Abnormal code = 49450-5) [facility] [id number] 17:28:45 Test Item Value Reference Range Interpretation Comments CRP (test code = 676) 14.83 mg/dL 0.00-0.50 H CAROLINA (test code = CAROLINA) Contact Acid Plant Operator Helper ID - BS Lab Interpretation (test Abnormal code = 82901-9) [facility] [id number] 17:28:45 Test Item Value Reference Range Interpretation Comments C-REACTIVE PROTEIN (BEAKER) (test 14.83 mg/dL 0.00-0.50 H code = 676) Contact Acid Plant Operator Helper ID - BSCBC W/PLT COUNT & AUTO [id number] 17:06:19 Test Item Value Reference Range Interpretation Comments WHITE BLOOD CELL COUNT (BEAKER) 7.3 K/ L 3.5-10.5 (test code = 775) RED BLOOD CELL COUNT (BEAKER) 2.96 M/ L 4.63-6.08 L (test code = 761) HEMOGLOBIN (BEAKER) (test code = 8.1 GM/DL 13.7-17.5 L 410) HEMATOCRIT (BEAKER) (test code = 27.6 % 40.1-51.0 L 411) MEAN CORPUSCULAR VOLUME (BEAKER) 93.2 fL 79.0-92.2 H (test code = 753) MEAN CORPUSCULAR HEMOGLOBIN 27.4 pg 25.7-32.2 (BEAKER) (test code = 751) MEAN CORPUSCULAR HEMOGLOBIN CONC 29.3 GM/DL 32.3-36.5 L (BEAKER) (test code = 752) RED CELL DISTRIBUTION WIDTH 16.9 % 11.6-14.4 H (BEAKER) (test code = 412) PLATELET COUNT (BEAKER) (test 284 K/CU MM 150-450 code = 756) MEAN PLATELET VOLUME (BEAKER) 10.5 fL 9.4-12.4 (test code = 754) NUCLEATED RED BLOOD CELLS 0 /100 WBC 0-0 (BEAKER) (test code = 413) NEUTROPHILS RELATIVE PERCENT 69 % (BEAKER) (test code = 429) LYMPHOCYTES RELATIVE PERCENT 17 % (BEAKER) (test code = 430) MONOCYTES RELATIVE PERCENT 10 % (BEAKER) (test code = 431) EOSINOPHILS RELATIVE PERCENT 3 % (BEAKER) (test code = 432) BASOPHILS RELATIVE PERCENT 0 % (BEAKER) (test code = 437) NEUTROPHILS ABSOLUTE COUNT 5.05 K/ L 1.78-5.38 (BEAKER) (test code = 670) LYMPHOCYTES ABSOLUTE COUNT 1.20 K/ L 1.32-3.57 L (BEAKER) (test code = 414) MONOCYTES ABSOLUTE COUNT (BEAKER) 0.71 K/ L 0.30-0.82 (test code = 415) EOSINOPHILS ABSOLUTE COUNT 0.25 K/ L 0.04-0.54 (BEAKER) (test code = 416) BASOPHILS ABSOLUTE COUNT (BEAKER) 0.03 K/ L 0.01-0.08 (test code = 417) IMMATURE GRANULOCYTES-RELATIVE 1 % 0-1 PERCENT (BEAKER) (test code = 2801) URINALYSIS W/ REFLEX URINE [id number] 15:28:54 Test Item Value Reference Range Interpretation Comments COLOR (BEAKER) (test code = 470) Yellow CLARITY (BEAKER) (test code = 469) Clear SPECIFIC GRAVITY UA (BEAKER) (test 1.018 1.001-1.035 code = 468) PH UA (BEAKER) (test code = 467) 6.0 5.0-8.0 PROTEIN UA (BEAKER) (test code = 20 mg/dL Negative A 464) GLUCOSE UA (BEAKER) (test code = Negative Negative 365) KETONES UA (BEAKER) (test code = Negative Negative 371) BILIRUBIN UA (BEAKER) (test code = Negative Negative 462) BLOOD UA (BEAKER) (test code = 461) Negative Negative NITRITE UA (BEAKER) (test code = Negative Negative 465) LEUKOCYTE ESTERASE UA (BEAKER) Negative Negative (test code = 466) UROBILINOGEN UA (BEAKER) (test code 2.0 mg/dL 0.2-1.0 H = 463) RBC UA (BEAKER) (test code = 519) 1 /HPF WBC UA (BEAKER) (test code = 520) < /HPF BACTERIA (BEAKER) (test code = 517) None Seen HYALINE CASTS (BEAKER) (test code = 4 /LPF 514) CRYSTALS, URINE (BEAKER) (test code None Seen = 1521) SOURCE(BEAKER) (test code = 2795) Contact Acid Plant Operator Helper ID - [auto]Contact Acid Plant Operator Helper ID - techSARS-CoV2/RT-PCR (Asymptomatic ONLY) 2021-08-17 14:32:07 Test Item Value Reference Interpretation Comments Range SARS-COV2/RT-PCR Negative Negative The SARS-Co V-2 (test code = target nucleic 68689-9) acids are not detected in thi s specimen. Negat anupama results do not preclude SARS-C oV-2 infection and should not be u sed as the sole bas is for patient management decisions. Nega tive results must be combined with clinical observations, patient history , and epidemiolog ical information. A false negative result may occu r if a specimen is improperly collected, transported or handled. This S ARS CoV-2 test is a rapid, real-irving e RT-PCR test intended for th e qualitative detection of nucleic acid fr om SARS-CoV-2 in a nasopharyngeal swab specimen collec kar from individual s suspected of COVID-19 by the ir healthcare provider. CAROLINA (test code = This test has been CAROLINA) authorized by FDA under an EUA for use by authorized laboratories. This test is only authorized for the duration of the declaration that circumstances exist justifying the authorization of emergency use of in vitro diagnostic tests for detection and/or diagnosis of COVID-19 under Section 564(b)(1) of the Federal Food, Drug and Cosmetic Act, 21 U.S.C. 360bbb-3(b)(1), unless the authorization is terminated or revoked sooner. Fact Sheet for Healthcare Providers: https://www.VidaPak/Documents/Xp ert%20Xpress%20SAR S%20CoV-2/Fact%20S heets/302-7552%20S ARS-COV-2%20HEALTH CARE%20PROVIDERS%2 0FACT%20SHEET.pdf Fact Sheet for Healthcare Patients: https://www.VidaPak/Documents/Xp ert%20Xpress%20SAR S%20CoV-2/Fact%20S heets/302-3801%20S ARS-COV-2%20PATIEN T%20FACT%20SHEET.p df Lab Interpretation Normal (test code = 30304-3) [facility]2021-08-17 14:32:07 Test Item Value Reference Interpretation Comments Range SARS-COV2/RT-PCR Negative Negative The SARS-Co V-2 (test code = target nucleic 37113-5) acids are not detected in thi s specimen. Negat anupama results do not preclude SARS-C oV-2 infection and should not be u sed as the sole bas is for patient management decisions. Nega tive results must be combined with clinical observations, patient history , and epidemiolog ical information. A false negative result may occu r if a specimen is improperly collected, transported or handled. This S ARS CoV-2 test is a rapid, real-irving e RT-PCR test intended for th e qualitative detection of nucleic acid fr om SARS-CoV-2 in a nasopharyngeal swab specimen collec kar from individual s suspected of COVID-19 by the ir healthcare provider. CAROLINA (test code = This test has been CAROLINA) authorized by FDA under an EUA for use by authorized laboratories. This test is only authorized for the duration of the declaration that circumstances exist justifying the authorization of emergency use of in vitro diagnostic tests for detection and/or diagnosis of COVID-19 under Section 564(b)(1) of the Federal Food, Drug and Cosmetic Act, 21 U.S.C. 360bbb-3(b)(1), unless the authorization is terminated or revoked sooner. Fact Sheet for Healthcare Providers: https://www.VidaPak/Documents/Xp ert%20Xpress%20SAR S%20CoV-2/Fact%20S heets/302-3802%20S ARS-COV-2%20HEALTH CARE%20PROVIDERS%2 0FACT%20SHEET.pdf Fact Sheet for Healthcare Patients: https://www.VidaPak/Documents/Xp ert%20Xpress%20SAR S%20CoV-2/Fact%20S heets/302-3801%20S ARS-COV-2%20PATIEN T%20FACT%20SHEET.p df Lab Interpretation Normal (test code = 63521-3) [facility]2021-08-17 14:32:07 Test Item Value Reference Interpretation Comments Range SARS-COV2/RT-PCR Negative Negative The SARS-Co V-2 (test code = target nucleic 80827-8) acids are not detected in thi s specimen. Negat anupama results do not preclude SARS-C oV-2 infection and should not be u sed as the sole bas is for patient management decisions. Nega tive results must be combined with clinical observations, patient history , and epidemiolog ical information. A false negative result may occu r if a specimen is improperly collected, transported or handled. This S ARS CoV-2 test is a rapid, real-irving e RT-PCR test intended for th e qualitative detection of nucleic acid fr om SARS-CoV-2 in a nasopharyngeal swab specimen collec kar from individual s suspected of COVID-19 by the ir healthcare provider. CAROLINA (test code = This test has been CAROLINA) authorized by FDA under an EUA for use by authorized laboratories. This test is only authorized for the duration of the declaration that circumstances exist justifying the authorization of emergency use of in vitro diagnostic tests for detection and/or diagnosis of COVID-19 under Section 564(b)(1) of the Federal Food, Drug and Cosmetic Act, 21 U.S.C. 360bbb-3(b)(1), unless the authorization is terminated or revoked sooner. Fact Sheet for Healthcare Providers: https://www.VidaPak/Documents/Xp ert%20Xpress%20SAR S%20CoV-2/Fact%20S heets/3023802%20S ARS-COV-2%20HEALTH CARE%20PROVIDERS%2 0FACT%20SHEET.pdf Fact Sheet for Healthcare Patients: https://www.VidaPak/Documents/Xp ert%20Xpress%20SAR S%20CoV-2/Fact%20S heets/302-3801%20S ARS-COV-2%20PATIEN T%20FACT%20SHEET.p df Lab Interpretation Normal (test code = 10435-1) [facility])2021-08-17 14:32:07 Test Item Value Reference Range Interpretation Comments SARS-COV2/RT-PCR Negative Negative The SARS-Co V-2 target (test code = nucleic acids a re not 4996206) detected in thi s specimen. Negative result s do not preclude SARS-C oV-2 infection and s hould not be used as the libertad e basis for patient managem ent decisions. Nega tive results must be combine d with clinical observ ations, patient history , and epidemiological information. A false negativ e result may occur if a spec imen is improperly dov ected, transported or handled. This SARS CoV-2 test is a rapid, real-time RT-PC R test intended for th e qualitative detection of nu cleic acid from SARS-CoV-2 in a nasopharyngeal swab specimen collected from individuals suspected of CO VID-19 by their healthcar e provider. This test has been authorized by FDA under an EUA for use by authorized laboratories. This test is only authorized for the duration of the declaration that circumstances exist justifying the authorization of emergency use of in vitro diagnostic tests for detection and/or diagnosis of COVID-19 under Section 564(b)(1) of the Federal Food, Drug and Cosmetic Act, 21 U.S.C. 360bbb-3(b)(1), unless the authorization is terminated or revoked sooner. Fact Sheet for Healthcare Providers: https://www.ClickFox.Coalfire m/Documents/Xpert%20Xpress%20SARS%20CoV-2/Fact%20Sheets/302-5052%38FAIT-OKG-1%20 HEALTHCARE%20PROVIDERS%20FACT%20SHEET.pdf Fact Sheet for Healthcare Patients: https://www.Design A/Documents/Xpert%20Xp ress%20SARS%20CoV-2/Fact%20Sheets/302-6631%32CPXO-VWT-4%20PATIENT%20FACT%20SHEET .pdfRAD, CHEST, 1 VIEW, NON [id number] 13:06:00Reason for exam:- >HYPOTENSIONReason for exam:->history of aortic dissectionShould this be performed at the bedside?->Yes [facility] 1985 Sex: MFINAL REPORT Exam: RAD, CHEST, 1 VIEW, NON DEPTDate: 08/17/2021 1:05 PM Indication:HYPOTENSIONhistory of aortic dissectionComparison: 09/30/2020 FINDINGS: Lines/Tubes/Devices: Aortic endograft in place. Lungs/pleura:Low lung volumes. Prominent central vasculature. Trace right pleural effusion. No pneumothorax. Heart/Mediastinum:Unchanged Bones/Soft Tissues: No acute osseous abnormality. Upper abdomen: Unremarkable. IMPRESSION:Low lung volumes.Central congestion.Trace right effusion. Signed: Cecil Conte Verified Date/Time: 08/17/2021 13:06:50 Reading Location: [facility] Reading Room [facility], [id number] 12:59:00 Test Item Value Reference Range Interpretation Comments ABO Grouping (test code = 2588) A Rh Factor (test code = 2589) [facility] [id number] 12:59:00 Test Item Value Reference Range Interpretation Comments ABO Grouping (test code = 2588) A Rh Factor (test code = 2589) POS [facility], [id number] 12:59:00 Test Item Value Reference Range Interpretation Comments ABO Grouping (test code = 2588) A Rh Factor (test code = 2589) [facility] ([facility] only) 2021-08-17 12:55:00 Test Item Value Reference Range Interpretation Comments Ab Scrn (test code = 890-4) NEGATIVE Echo 2 [facility] 2021-08-17 12:55:00 Test Item Value Reference Range Interpretation Comments Ab Scrn (test code = 890-4) NEGATIVE Echo 2 [facility] ([facility] 2021-08-17 12:55:00 Test Item Value Reference Range Interpretation Comments Ab Scrn (test code = 890-4) NEGATIVE Echo 2 [facility] HospitalCOMPREHENSIVE METABOLIC [id number] 12:25:45 Test Item Value Reference Range Interpretation Comments TOTAL PROTEIN 7.5 gm/dL 6.0-8.3 (BEAKER) (test code = 770) ALBUMIN (BEAKER) 3.4 g/dL 3.5-5.0 L (test code = 1145) ALKALINE PHOSPHATASE 96 U/L 40-150 (BEAKER) (test code = 346) BILIRUBIN TOTAL 0.5 mg/dL 0.2-1.2 (BEAKER) (test code = 377) SODIUM (BEAKER) (test 136 meq/L 136-145 code = 381) POTASSIUM (BEAKER) 5.3 meq/L 3.5-5.1 H (test code = 379) CHLORIDE (BEAKER) 108 meq/L 98-107 H (test code = 382) CO2 (BEAKER) (test 21 meq/L 22-29 L code = 355) BLOOD UREA NITROGEN 31 mg/dL 7-21 H (BEAKER) (test code = 354) CREATININE (BEAKER) 1.61 mg/dL 0.57-1.25 H (test code = 358) GLUCOSE RANDOM 104 mg/dL 70-105 (BEAKER) (test code = 652) CALCIUM (BEAKER) 8.4 mg/dL 8.4-10.2 (test code = 697) AST (SGOT) (BEAKER) 20 U/L 5-34 (test code = 353) ALT (SGPT) (BEAKER) 10 U/L 6-55 (test code = 347) EGFR (BEAKER) (test 59 mL/min/1.73 ESTIMA KAR GFR IS code = 1092) sq m NOT ACCURATE CREATININE CLEARANCE IN PREDICTING GLOMERULAR FILTRATION RATE . ESTIMATED GFR I S NOT APPLICABLE FOR DIALYSIS PATIEN TS. Contact Acid Plant Operator Helper ID - EOOperator ID - ENHEMIAH CB-type Natriuretic Factor (BNP)2021-08-17 11:53:18 Test Item Value Reference Range Interpretation Comments BNP (test code = 47327-8) <10 0-100 CAROLINA (test code = CAROLINA) Contact Acid Plant Operator Helper ID - EO Lab Interpretation (test Normal code = 12039-2) [facility] (BNP)2021-08-17 11:53:18 Test Item Value Reference Range Interpretation Comments BNP (test code = 73494-3) <10 0-100 CAROLINA (test code = CAROLINA) Contact Acid Plant Operator Helper ID - EO Lab Interpretation (test Normal code = 61407-3) [facility] Nat[facility] (BNP)2021-08-17 11:53:18 Test Item Value Reference Range Interpretation Comments BNP (test code = 25227-0) <10 0-100 CAROLINA (test code = CAROLINA) Contact Acid Plant Operator Helper ID - EO Lab Interpretation (test Normal code = 75900-6) [facility] NATRIURETIC FACTOR (BNP)2021-08-17 11:53:18 Test Item Value Reference Range Interpretation Comments B-TYPE NATRIURETIC PEPTIDE (BEAKER) < pg/mL 0-100 (test code = 700) Contact Acid Plant Operator Helper ID - EOHigh Sens Trop I ([facility]/Marycarmen Only)2021-08-17 11:44:11 Test Item Value Reference Range Interpretation Comments Troponin I HS (test <4 See_Comment [GlobeRangera kar code = 35598-5) message] The system which generated this result transmitted reference range : <=35 pg/ml. The reference range was not used to interpret this result as normal/abnormal . CAROLINA (test code = Contact Acid Plant Operator Helper ID - CAROLINA) EOThe ELECTRONIC GLUING MACHINE OPERATOR STAT High Sensitivity Troponin-I results should be used in conjunction with other diagnostic information such as ECG, clinical observations and information, and patient symptoms to aid in the diagnosis of HI. Lab Interpretation Normal (test code = 77713-0) [facility] ([facility]/Marycarmen Only)2021-08-17 11:44:11 Test Item Value Reference Range Interpretation Comments Troponin I HS (test <4 See_Comment [Automa kar code = 15261-2) message] The system which generated this result transmitted reference range : <=35 pg/ml. The reference range was not used to interpret this result as normal/abnormal . CAROLINA (test code = Contact Acid Plant Operator Helper ID - CAROLINA) EOThe ELECTRONIC GLUING MACHINE OPERATOR STAT High Sensitivity Troponin-I results should be used in conjunction with other diagnostic information such as ECG, clinical observations and information, and patient symptoms to aid in the diagnosis of HI. Lab Interpretation Normal (test code = 78087-7) [facility] ([facility]/Marycarmen Only)2021-08-17 11:44:11 Test Item Value Reference Range Interpretation Comments Troponin I HS (test <4 See_Comment [Automa kar code = 46722-6) message] The system which generated this result transmitted reference range : <=35 pg/ml. The reference range was not used to interpret this result as normal/abnormal . CAROLINA (test code = Contact Acid Plant Operator Helper ID - CAROLINA) EOThe ELECTRONIC GLUING MACHINE OPERATOR STAT High Sensitivity Troponin-I results should be used in conjunction with other diagnostic information such as ECG, clinical observations and information, and patient symptoms to aid in the diagnosis of HI. Lab Interpretation Normal (test code = 47323-4) [facility] TROPONIN [id number] 11:44:11 Test Item Value Reference Range Interpretation Comments HIGH SENSITIVITY < pg/ml See_Comment [Automated message] TROPONIN I (test code = The system which 0609859) generated this result transmitted ref erence range: <=35. Th e reference range was not used to interpr et this result as normal/abnormal . Contact Acid Plant Operator Helper ID - EOThe ELECTRONIC GLUING MACHINE OPERATOR STAT High Sensitivity Troponin-I results should be used in conjunctionwith other diagnostic information such as ECG, clinical observations and information, and patient symptoms to aid in the diagnosis of HI.LACTIC ACID, [id number] 11:33:10 Test Item Value Reference Range Interpretation Comments LACTATE BLOOD VENOUS (2) (BEAKER) 0.73 mmol/L 0.50-2.20 (test code = 2872) Contact Acid Plant Operator Helper ID - [id number] 11:28:30 Test Item Value Reference Interpretation Comments Range Protime (test code = 15.0 See_Comment H [Autom ated 5902-2) message] The system which generated this result transmitted reference range : 11.9 - 14.2 seconds. The reference range was not used to interpret this result as normal/abnormal . INR (test code = 1.20 See_Comment [Automated 6301-6) message] The system which generated this result transmitted reference range : <=5.90. The reference range was not used to interpret this result as normal/abnormal . PTT (test code = 27.1 See_Comment [Automated 41063-7) message] The system which generated this result transmitted reference range : 22.5 - 36.0 seconds. The reference range was not used to interpret this result as normal/abnormal . [place] (test code = RECOMMENDED [place]) COUMADIN/WARFARIN INR THERAPY RANGESSTANDARD DOSE: 2.0 - 3.0 Includes: PROPHYLAXIS for venous thrombosis, systemic embolization; TREATMENT for venous thrombosis and/or pulmonary embolus.HIGH RISK: Target INR is 2.5-3.5 for patients with mechanical heart valves. Lab Interpretation Abnormal (test code = 69616-5) [id number] 11:28:30 Test Item Value Reference Interpretation Comments Range Protime (test code = 15.0 See_Comment H [Autom ated 5902-2) message] The system which generated this result transmitted reference range : 11.9 - 14.2 seconds. The reference range was not used to interpret this result as normal/abnormal . INR (test code = 1.20 See_Comment [Automated 6301-6) message] The system which generated this result transmitted reference range : <=5.90. The reference range was not used to interpret this result as normal/abnormal . PTT (test code = 27.1 See_Comment [Automated 54014-6) message] The system which generated this result transmitted reference range : 22.5 - 36.0 seconds. The reference range was not used to interpret this result as normal/abnormal . [place] (test code = RECOMMENDED [place]) COUMADIN/WARFARIN INR THERAPY RANGESSTANDARD DOSE: 2.0 - 3.0 Includes: PROPHYLAXIS for venous thrombosis, systemic embolization; TREATMENT for venous thrombosis and/or pulmonary embolus.HIGH RISK: Target INR is 2.5-3.5 for patients with mechanical heart valves. Lab Interpretation Abnormal (test code = 34939-9) [facility][id number] 11:28:30 Test Item Value Reference Interpretation Comments Range Protime (test code = 15.0 See_Comment H [Autom ated 5902-2) message] The system which generated this result transmitted reference range : 11.9 - 14.2 seconds. The reference range was not used to interpret this result as normal/abnormal . INR (test code = 1.20 See_Comment [Automated 1021-6) message] The system which generated this result transmitted reference range : <=5.90. The reference range was not used to interpret this result as normal/abnormal . PTT (test code = 27.1 See_Comment [Automated 51823-0) message] The system which generated this result transmitted reference range : 22.5 - 36.0 seconds. The reference range was not used to interpret this result as normal/abnormal . [place] (test code = RECOMMENDED [place]) COUMADIN/WARFARIN INR THERAPY RANGESSTANDARD DOSE: 2.0 - 3.0 Includes: PROPHYLAXIS for venous thrombosis, systemic embolization; TREATMENT for venous thrombosis and/or pulmonary embolus.HIGH RISK: Target INR is 2.5-3.5 for patients with mechanical heart valves. Lab Interpretation Abnormal (test code = 00593-7) [facility][id number] 11:28:30 Test Item Value Reference Range Interpretation Comments PROTIME (BEAKER) (test 15.0 seconds 11.9-14.2 H code = 759) INR (BEAKER) (test 1.20 See_Comment [Automat ed code = 370) message] The sy stem which generated this result transmitted reference range : <=5.90. The reference range was not used to interpret this result as normal/abnormal . PARTIAL THROMBOPLASTIN 27.1 seconds 22.5-36.0 TIME (BEAKER) (test code = 760) RECOMMENDED COUMADIN/WARFARIN INR THERAPY RANGESSTANDARD DOSE: 2.0 - 3.0 Includes: PROPHYLAXIS for venous thrombosis, systemic embolization; TREATMENT for venous thrombosis and/or pulmonary embolus.HIGH RISK: Target INR is 2.5-3.5 for patients with mechanical heart valves.CBC W/PLT COUNT & AUTO [id number] 11:17:46 Test Item Value Reference Range Interpretation Comments WHITE BLOOD CELL COUNT (BEAKER) 8.6 K/ L 3.5-10.5 (test code = 775) RED BLOOD CELL COUNT (BEAKER) 2.98 M/ L 4.63-6.08 L (test code = 761) HEMOGLOBIN (BEAKER) (test code = 8.3 GM/DL 13.7-17.5 L 410) HEMATOCRIT (BEAKER) (test code = 27.7 % 40.1-51.0 L 411) MEAN CORPUSCULAR VOLUME (BEAKER) 93.0 fL 79.0-92.2 H (test code = 753) MEAN CORPUSCULAR HEMOGLOBIN 27.9 pg 25.7-32.2 (BEAKER) (test code = 751) MEAN CORPUSCULAR HEMOGLOBIN CONC 30.0 GM/DL 32.3-36.5 L (BEAKER) (test code = 752) RED CELL DISTRIBUTION WIDTH 16.9 % 11.6-14.4 H (BEAKER) (test code = 412) PLATELET COUNT (BEAKER) (test 309 K/CU MM 150-450 code = 756) MEAN PLATELET VOLUME (BEAKER) 10.1 fL 9.4-12.4 (test code = 754) NUCLEATED RED BLOOD CELLS 0 /100 WBC 0-0 (BEAKER) (test code = 413) NEUTROPHILS RELATIVE PERCENT 73 % (BEAKER) (test code = 429) LYMPHOCYTES RELATIVE PERCENT 14 % (BEAKER) (test code = 430) MONOCYTES RELATIVE PERCENT 10 % (BEAKER) (test code = 431) EOSINOPHILS RELATIVE PERCENT 3 % (BEAKER) (test code = 432) BASOPHILS RELATIVE PERCENT 0 % (BEAKER) (test code = 437) NEUTROPHILS ABSOLUTE COUNT 6.23 K/ L 1.78-5.38 H (BEAKER) (test code = 670) LYMPHOCYTES ABSOLUTE COUNT 1.16 K/ L 1.32-3.57 L (BEAKER) (test code = 414) MONOCYTES ABSOLUTE COUNT (BEAKER) 0.82 K/ L 0.30-0.82 (test code = 415) EOSINOPHILS ABSOLUTE COUNT 0.25 K/ L 0.04-0.54 (BEAKER) (test code = 416) BASOPHILS ABSOLUTE COUNT (BEAKER) 0.03 K/ L 0.01-0.08 (test code = 417) IMMATURE GRANULOCYTES-RELATIVE 1 % 0-1 PERCENT (BEAKER) (test code = 2801) - CT C-SPINE W/O [id number] 14:17:00 [facility] : 1985 Sex: M FAX: Yuri Roberts MD Constable: St: PRE Name: JORGE GOINS [facility] : 1985 Age/S: 35/M [address] [facility] Unit: [id number] Loc: [address] Phys: [place] [address] Acct: [id number] Dis Date: Status: PRE ER PHONE #: [phone] Exam Date: 04/08/2021 1401 FAX #: [phone] Reason: Neck Pain EXAMS: CPT CODE: [id number] CT C-SPINE W/O CONT 59572 LOCATION: T18 EXAM: CT HEAD WITHOUT CONTRAST INDICATION: Head pain COMPARISON: None. TECHNIQUE: Multiple CT images of the head were obtained. No intravenous contrast was given. Up-to-date CT equipment and radiation dose reduction techniques were utilized. Automatic exposure control was utilized. FINDINGS: No intracranial hemorrhage or extra-axial collection is seen. No midline shift or mass effect is identified. Subtle bilateral basal ganglia calcifications. There is no territorial infarct. The ventricles, sulci and cisterns are normal. The calvarium is intact. Peripheral soft tissues are normal. Paranasal sinuses and mastoid air cells are clear. IMPRESSION: No intracranial hemorrhage or acute abnormality. EXAM: CT CERVICAL SPINE WITHOUT CONTRAST INDICATION: Neck pain COMPARISON: None. TECHNIQUE: Axially oriented CT images were obtained through the entire cervical spine, without contrast. Coronal and sagittal reformations are also provided.Up-to-date CT equipment and radiation dose reduction techniques were utilized. Automatic exposure control was utilized. FINDINGS: No fracture, malalignment or other bony abnormality is identified. Prevertebral soft tissues are normal. No central canal or foraminal stenosis is seen. Deep soft tissue ofthe neck are normal. Visualized lung apices and upper mediastinum are normal. Limited views PAGE 1 Signed Report (CONTINUED) FAX: Yuri Roberts MD Constable: St: PRE Name: JORGE GOINS [facility] : 1985 Age/S: 35/M [address] [facility] Unit: [id number] Loc: [address] Phys: [place] [address] Acct: [id number] Dis Date: Status: PRE ER PHONE #: [phone] Exam Date: 04/08/2021 1401 FAX #: [phone] Reason: Neck Pain EXAMS: CPT CODE: [id number] CT C-SPINE W/O CONT 58737 <Continued> of the skull base, paranasal sinuses, and mastoid air cells are unremarkable. IMPRESSION:No acute bony abnormality. No central canal or foraminal stenosis. at 1417 Reported and signed by: Wilfrido Haynes M.D. CC: Yuri Roberts MD Technologist: MARLI LITTLEJOHN; COSTA LR Trnscrd Dt/Tm: 04/08/2021 (4830) [id number].[email or web address].[id number] Orig Print D/T: S: 04/08/2021 (1420 PAGE 2 Signed Report- CT HEAD/BRAIN W/O [id number] 14:17:00 [facility] : 1985 Sex: M FAX: Yuri Roberts MD Constable: St: PRE Name: TREMAYNE GOINSROBINA Teresa [facility] : 1985 Age/S: 35/M [address] [facility] Unit: [id number] Loc: [address] Phys: [place] [address] Acct: [id number] Dis Date: Status: PRE ER PHONE #: [phone] Exam Date: 04/08/2021 1401 FAX #: [phone] Reason: Headache EXAMS: CPT CODE: [id number] CT HEAD/BRAIN W/O CONT 24541 LOCATION: T18 EXAM: CT HEAD WITHOUT CONTRAST INDICATION: Head pain COMPARISON: None. TECHNIQUE: Multiple CT images of the head were obtained. No intravenous contrast was given. Up-to-date CT equipment and radiation dose reduction techniques were utilized. Automatic exposure control was utilized. FINDINGS: No intracranial hemorrhage or extra-axial collection is seen. No midline shift or mass effect is identified. Subtle bilateral basal ganglia calcifications. There is no territorial infarct. The ventricles, sulci and cisterns are normal. The calvarium is intact. Peripheral soft tissues are normal. Paranasal sinuses and mastoid aircells are clear. IMPRESSION: No intracranial hemorrhage or acute abnormality. EXAM: CT CERVICAL SPINE WITHOUT CONTRAST INDICATION: Neck pain COMPARISON: None. TECHNIQUE: Axially oriented CT images were obtained through the entire cervical spine, without contrast. Coronal and sagittal reformations are also provided.Up-to-date CT equipment and radiation dose reduction techniques were utilized. Automatic exposure control was utilized. FINDINGS: No fracture, malalignment or other bony abnormality is identified. Prevertebral soft tissues are normal. No central canal or foraminal stenosis is seen. Deep soft tissue ofthe neck are normal. Visualized lung apices and upper mediastinum are normal. Limited views PAGE 1 Signed Report (CONTINUED) FAX: Yuri Roberts MD Constable: St: PRE Name: JORGE GOINS [facility] : 1985 Age/S: 35/M [address] [facility] [employer] Unit: [id number] Loc: [address] Phys: [place] [id number] Acct: [id number] Dis Date: Status: PRE ER PHONE #: [phone] Exam Date: 04/08/2021 1401 FAX #: [phone] Reason: Headache EXAMS: CPT CODE: [id number] CT HEAD/BRAIN W/O CONT 18269 <Continued> of the skull base, paranasal sinuses, and mastoid air cells are unremarkable. IMPRESSION: No acute bony abnormality. No central canal or foraminal stenosis. at 1417 Reported and signed by: Wilfrido Haynes M.D. CC: Yuri Roberts MD Technologist: MARLI LITTLEJOHN; COSTA LR Trnscrd Dt/Tm: 04/08/2021 (7439) [id number] Orig PrintD/T: S: 04/08/2021 (2442 PAGE 2 Signed Report SARS-CoV2/RT-PCR (Asymptomatic ONLY)2020-10-16 09:32:00 Test Item Value Reference Range Interpretation Comments SARS-COV2/RT-PCR Negative Not Detected, (test code = Negative, See 75877-8) external report for linked test SARS-COV-2 [facility] (test code = 41225-9) [place] (test code = Negative result for this [place]) test determines that SARS-CoV-2 RNA was not present in the specimen above the Limit of Detection (LOD). However, Negative results do not preclude SARS-CoV-2 infection and should not be used as the sole basis for treatment or patient management decisions. Negative results must be combined with clinical observations, patient history, and epidemiological information. A false negative result may occur if a specimen is improperly collected, transported or handled. A false negative result should be considered if patient's recent exposures or clinical presentation indicate that COVID-19 (SARS-CoV-2) is likely and diagnostic tests for other causes of illness are negative. Re-testing should be considered in cases of suspected false negatives. The limit of detection for this assay is 800 copies/mL. This SARS CoV-2 test is a real-time RT-PCR test intended for the qualitative detection of nucleic acid from SARS-CoV-2 in a nasopharyngeal swab specimen collected from individuals suspected of COVID-19 by their healthcare provider. This test has not been Food and Drug Administration (FDA) cleared or approved. This is a modified version of an approved Emergency Use Authorization (EUA) and is in the process of review by the FDA. Once authorized by the FDA, the issued EUA will be effective until the declaration that circumstances exist justifying the authorization of the emergency use of in vitro diagnostic tests for detection and/or diagnosis of COVID-19 is terminated under Section 564(b)(2) of the Act or the EUA is revoked under Section 564(g) of the Act. Fact Sheet for Healthcare Providers:https://www.[employer]/sites/default/f maria luz/product/documents/F act_Sheet_HC_Providers_L nqa_VHQJ-HzX-6.pdf Fact Sheet for Healthcare Patients:https://www.[employer]/sites/default/fi les/product/documents/Fa ct_Sheet_Patients_Lyra_S ARS-CoV-2.pdf Performing Laboratory:[facility] [place] [address] [facility])2020-10-16 09:32:00 Test Item Value Reference Range Interpretation Comments SARS-COV2/RT-PCR (test Negative Not Detected, Negative, code = 6491860) See external report for linked test SARS-COV-2 PERFORMING LAB [facility] ION (test code = 7122185) Negative result for this test determines that SARS-CoV-2 RNA was not present in the specimen above the Limit of Detection (LOD). However, Negative results do not preclude SARS-CoV-2 infection and should not be used as the sole basis for treatment or patient management decisions. Negative results must be combined with clinical observations, patient history, and epidemiological information. A false negative result may occur if a specimen is improperly collected, transported or handled. A false negative result should be considered if patient's recent exposures or clinical presentation indicate that COVID-19 (SARS-CoV-2) is likely and diagnostic tests for other causes of illness are negative. Re-testing should be considered in cases of suspected false negatives.The limit of detection for this assay is 800 copies/mL.This SARS CoV-2 test is a real-time RT-PCR test intended for the qualitative detection of nucleic acid from SARS-CoV-2 in a nasopharyngeal swab specimen collected from individuals suspected of COVID-19 by their healthcare provider.This test has not been Food and Drug Administration (FDA) cleared or approved. This is a modified version of an approved Emergency Use Authorization (EUA) and is in the process of review by the FDA. Once authorized by the FDA, the issued EUA will be effective until the declaration that circumstances exist justifying the authorization of the emergency use ofin vitro diagnostic tests for detection and/or diagnosis of COVID-19 is terminated under Section 564(b)(2) of the Act or the EUA is revoked under Section 564(g) of the Act.Fact Sheet for Healthcare Prov iders:https://www.[employer]/sites/default/files/product/documents/Fact_Sheet_HC _Dshdtbcai_Cofl_WBBS-FuW-4.pdfFact Sheet for Healthcare Patients:https://www.[employer]/sites/default/files/product/docume nts/Vmny_Lwvau_Pumpnwfn_Srpb_MDBR-QvE-3.pdfPerforming Laboratory:[address], [place] [address]UUW with platelet count + automated [id number] 05:09:00 Test Item Value Reference Range Interpretation Comments WBC (test code = 6690-2) 9.5 See_Comment [A utomated message] The system [employer] generated this result transmitted ref erence range: 3.5 - 10 .5 K/L. The refe rence range was not u sed to interpret this result as normal/abnor mal. RBC (test code = 789-8) 3.12 See_Comment L [Au tomated message] The system [employer] generated this result transmitted ref erence range: 4.63 - 6 .08 M/L. The refe rence range was not u sed to interpret this result as normal/abnor mal. MCHC (test code = 786-4) 31.2 See_Comment L [A utomated message] The system [employer] generated this result transmitted ref erence range: 32.3 - 3 6.5 GM/DL. The refe rence range was not u sed to interpret this result as normal/abnor mal. Hematocrit (test code = 29.2 % 40.1-51.0 L 4544-3) MCV (test code = 787-2) 93.6 fL 79.0-92.2 H MCH (test code = 785-6) 29.2 pg 25.7-32.2 RDW (test code = 788-0) 13.9 % 11.6-14.4 Platelets (test code = 395 See_Comment [Aut omated message] 777-3) The system [employer] generated this result transmitted ref erence range: 150 - 45 0 K/CU MM. The referen ce range was not u sed to interpret this result as normal/abnor mal. MPV (test code = 9.0 fL 9.4-12.4 L 16770-1) nRBC (test code = 413) 0 See_Comment [Aut omated message] The system [employer] generated this result transmitted ref erence range: 0 - 0 /1 00 WBC. The refere nce range was not u sed to interpret this result as normal/abnor mal. % Neutros (test code = 67 % 429) % Lymphs (test code = 16 % 430) % Monos (test code = 8 % 431) % Eos (test code = 432) 8 % % Baso (test code = 437) 0 % # Neutros (test code = 6.35 See_Comment H [Aut omated message] 670) The system [employer] generated this result transmitted ref erence range: 1.78 - 5 .38 K/L. The refe rence range was not u sed to interpret this result as normal/abnor mal. # Lymphs (test code = 1.51 See_Comment [Auto mated message] 414) The system [employer] generated this result transmitted ref erence range: 1.32 - 3 .57 K/L. The refe rence range was not u sed to interpret this result as normal/abnor mal. # Monos (test code = 0.79 See_Comment [Autom ated message] 415) The system [employer] generated this result transmitted ref erence range: 0.30 - 0 .82 K/L. The refe rence range was not u sed to interpret this result as normal/abnor mal. # Eos (test code = 416) 0.75 See_Comment H [Au tomated message] The system [employer] generated this result transmitted ref erence range: 0.04 - 0 .54 K/L. The refe rence range was not u sed to interpret this result as normal/abnor mal. # Baso (test code = 417) 0.02 See_Comment [A utomated message] The system [employer] generated this result transmitted ref erence range: 0.01 - 0 .08 K/L. The refe rence range was not u sed to interpret this result as normal/abnor mal. Immature 0 % 0-1 Granulocytes-Relative (test code = 2801) Lab Interpretation (test Abnormal code = 43343-2) [facility] W/PLT COUNT & AUTO [id number] 05:09:00 Test Item Value Reference Range Interpretation Comments WHITE BLOOD CELL COUNT (BEAKER) 9.5 K/ L 3.5-10.5 (test code = 775) RED BLOOD CELL COUNT (BEAKER) 3.12 M/ L 4.63-6.08 L (test code = 761) HEMOGLOBIN (BEAKER) (test code = 9.1 GM/DL 13.7-17.5 L 410) HEMATOCRIT (BEAKER) (test code = 29.2 % 40.1-51.0 L 411) MEAN CORPUSCULAR VOLUME (BEAKER) 93.6 fL 79.0-92.2 H (test code = 753) MEAN CORPUSCULAR HEMOGLOBIN 29.2 pg 25.7-32.2 (BEAKER) (test code = 751) MEAN CORPUSCULAR HEMOGLOBIN CONC 31.2 GM/DL 32.3-36.5 L (BEAKER) (test code = 752) RED CELL DISTRIBUTION WIDTH 13.9 % 11.6-14.4 (BEAKER) (test code = 412) PLATELET COUNT (BEAKER) (test 395 K/CU MM 150-450 code = 756) MEAN PLATELET VOLUME (BEAKER) 9.0 fL 9.4-12.4 L (test code = 754) NUCLEATED RED BLOOD CELLS 0 /100 WBC 0-0 (BEAKER) (test code = 413) NEUTROPHILS RELATIVE PERCENT 67 % (BEAKER) (test code = 429) LYMPHOCYTES RELATIVE PERCENT 16 % (BEAKER) (test code = 430) MONOCYTES RELATIVE PERCENT 8 % (BEAKER) (test code = 431) EOSINOPHILS RELATIVE PERCENT 8 % (BEAKER) (test code = 432) BASOPHILS RELATIVE PERCENT 0 % (BEAKER) (test code = 437) NEUTROPHILS ABSOLUTE COUNT 6.35 K/ L 1.78-5.38 H (BEAKER) (test code = 670) LYMPHOCYTES ABSOLUTE COUNT 1.51 K/ L 1.32-3.57 (BEAKER) (test code = 414) MONOCYTES ABSOLUTE COUNT (BEAKER) 0.79 K/ L 0.30-0.82 (test code = 415) EOSINOPHILS ABSOLUTE COUNT 0.75 K/ L 0.04-0.54 H (BEAKER) (test code = 416) BASOPHILS ABSOLUTE COUNT (BEAKER) 0.02 K/ L 0.01-0.08 (test code = 417) IMMATURE GRANULOCYTES-RELATIVE 0 % 0-1 PERCENT (BEAKER) (test code = 2801) Basic Metabolic [id number] 05:50:00 Test Item Value Reference Range Interpretation Comments Sodium (test code = 137 meq/L 374-303 4098-2) Potassium (test 4.5 meq/L 3.5-5.1 code = 2823-3) Chloride (test code 100 meq/L 98-107 = 2075-0) CO2 (test code = 28 meq/L 22-29 8-9) BUN (test code = 18 mg/dL 7-21 3094-0) Creatinine (test 0.76 mg/dL 0.57-1.25 code = 2160-0) Glucose (test code 104 mg/dL 70-105 = 2345-7) Calcium (test code 9.0 mg/dL 8.4-10.2 = 40070-0) EGFR (test code = 142 mL/min/1.73 [place] [address]-2) NOT ACCURATE CREATININE CLEARANCE IN PREDICTING GLOMERULAR FILTRATION RATE . ESTIMATED GFR I S NOT APPLICABLE FOR DIALYSIS PATIEN TS. FIGUEROA (test code = Contact Acid Plant Operator Helper ID - [place]) [facility] Center[facility] function [id number] 05:50:00 Test Item Value Reference Range Interpretation Comments Protein, Total (test 6.7 See_Comment [Autom ated code = 2885-2) message] The system which generated this result transmit kar reference range : 6.0 - 8.3 gm/dL . The reference range was not u sed to interpret th is result as normal/abnormal . Albumin (test code = 2.9 g/dL 3.5-5.0 L 43823-9) Total Bilirubin (test 0.3 mg/dL 0.2-1.2 code = 1974-2) Bilirubin, Direct 0.2 mg/dL 0.1-0.5 (test code = 1967-7) Alkaline Phosphatase 144 U/L 40-150 (test code = 6768-6) AST (test code = 15 U/L 5-34 1920-8) ALT (test code = 20 U/L 6-55 1742-6) [place]INA (test code = [place]) Contact Acid Plant Operator Helper ID - EDASI Lab Interpretation Abnormal (test code = 49768-2) [facility] 05:50:00 Test Item Value Reference Range Interpretation Comments Magnesium (test code = 1.6 mg/dL 1.6-2.6 35987-1) [place] (test code = [place]) Contact Acid Plant Operator Helper ID - EDASI Lab Interpretation (test Normal code = 97157-2) [facility]ABOLIC [id number] 05:50:00 Test Item Value Reference Range Interpretation Comments SODIUM (BEAKER) 137 meq/L 136-145 (test code = 381) POTASSIUM (BEAKER) 4.5 meq/L 3.5-5.1 (test code = 379) CHLORIDE (BEAKER) 100 meq/L 98-107 (test code = 382) CO2 (BEAKER) (test 28 meq/L 22-29 code = 355) BLOOD UREA NITROGEN 18 mg/dL 7-21 (BEAKER) (test code = 354) CREATININE (BEAKER) 0.76 mg/dL 0.57-1.25 (test code = 358) GLUCOSE RANDOM 104 mg/dL 70-105 (BEAKER) (test code = 652) CALCIUM (BEAKER) 9.0 mg/dL 8.4-10.2 (test code = 697) EGFR (BEAKER) (test 142 mL/min/1.73 ESTIM ATED GFR IS code = 1092) sq m NOT ACCURATE CREATININE CLEARANCE IN PREDICTING GLOMERULAR FILTRATION RATE . ESTIMATED GFR I S NOT APPLICABLE FOR DIALYSIS PATIEN TS. Contact Acid Plant Operator Helper ID - [id number] 05:50:00 Test Item Value Reference Range Interpretation Comments MAGNESIUM (BEAKER) (test code = 1.6 mg/dL 1.6-2.6 627) Contact Acid Plant Operator Helper ID - EDASIHEPATIC FUNCTION [id number] 05:50:00 Test Item Value Reference Range Interpretation Comments TOTAL PROTEIN (BEAKER) (test code = 6.7 gm/dL 6.0-8.3 770) ALBUMIN (BEAKER) (test code = 1145) 2.9 g/dL 3.5-5.0 L BILIRUBIN TOTAL (BEAKER) (test code 0.3 mg/dL 0.2-1.2 = 377) BILIRUBIN DIRECT (BEAKER) (test 0.2 mg/dL 0.1-0.5 code = 706) ALKALINE PHOSPHATASE (BEAKER) (test 144 U/L 40-150 code = 346) AST (SGOT) (BEAKER) (test code = 15 U/L 5-34 353) ALT (SGPT) (BEAKER) (test code = 20 U/L 6-55 347) Contact Acid Plant Operator Helper ID - EDASICBC W/PLT COUNT & AUTO [id number] 05:15:00 Test Item Value Reference Range Interpretation Comments WHITE BLOOD CELL COUNT (BEAKER) 7.4 K/ L 3.5-10.5 (test code = 775) RED BLOOD CELL COUNT (BEAKER) 2.93 M/ L 4.63-6.08 L (test code = 761) HEMOGLOBIN (BEAKER) (test code = 8.5 GM/DL 13.7-17.5 L 410) HEMATOCRIT (BEAKER) (test code = 27.7 % 40.1-51.0 L 411) MEAN CORPUSCULAR VOLUME (BEAKER) 94.5 fL 79.0-92.2 H (test code = 753) MEAN CORPUSCULAR HEMOGLOBIN 29.0 pg 25.7-32.2 (BEAKER) (test code = 751) MEAN CORPUSCULAR HEMOGLOBIN CONC 30.7 GM/DL 32.3-36.5 L (BEAKER) (test code = 752) RED CELL DISTRIBUTION WIDTH 14.2 % 11.6-14.4 (BEAKER) (test code = 412) PLATELET COUNT (BEAKER) (test 327 K/CU MM 150-450 code = 756) MEAN PLATELET VOLUME (BEAKER) 9.3 fL 9.4-12.4 L (test code = 754) NUCLEATED RED BLOOD CELLS 0 /100 WBC 0-0 (BEAKER) (test code = 413) NEUTROPHILS RELATIVE PERCENT 70 % (BEAKER) (test code = 429) LYMPHOCYTES RELATIVE PERCENT 16 % (BEAKER) (test code = 430) MONOCYTES RELATIVE PERCENT 9 % (BEAKER) (test code = 431) EOSINOPHILS RELATIVE PERCENT 6 % (BEAKER) (test code = 432) BASOPHILS RELATIVE PERCENT 0 % (BEAKER) (test code = 437) NEUTROPHILS ABSOLUTE COUNT 5.13 K/ L 1.78-5.38 (BEAKER) (test code = 670) LYMPHOCYTES ABSOLUTE COUNT 1.15 K/ L 1.32-3.57 L (BEAKER) (test code = 414) MONOCYTES ABSOLUTE COUNT (BEAKER) 0.64 K/ L 0.30-0.82 (test code = 415) EOSINOPHILS ABSOLUTE COUNT 0.41 K/ L 0.04-0.54 (BEAKER) (test code = 416) BASOPHILS ABSOLUTE COUNT (BEAKER) 0.01 K/ L 0.01-0.08 (test code = 417) IMMATURE GRANULOCYTES-RELATIVE 0 % 0-1 PERCENT (BEAKER) (test code = 2801) SARS-COV2/RT-PCR ([facility])2020-10-09 11:50:00 Test Item Value Reference Range Interpretation Comments SARS-COV2/RT-PCR (test Negative Not Detected, Negative, code = 8055479) See external report for linked test SARS-COV-2 PERFORMING LAB [facility] (test code = 9801504) Negative result for this test determines that SARS-CoV-2 RNA was not present in the specimen above the Limit of Detection (LOD). However, Negative results do not preclude SARS-CoV-2 infection and should not be used as the sole basis for treatment or patient management decisions. Negative results must be combined with clinical observations, patient history, and epidemiological information. A false negative result may occur if a specimen is improperly collected, transported or handled. A false negative result should be considered if patient's recent exposures or clinical presentation indicate that COVID-19 (SARS-CoV-2) is likely and diagnostic tests for other causes of illness are negative. Re-testing should be considered in cases of suspected false negatives.The limit of detection for this assay is 800 copies/mL.This SARS CoV-2 test is a real-time RT-PCR test intended for the qualitative detection of nucleic acid from SARS-CoV-2 in a nasopharyngeal swab specimen collected from individuals suspected of COVID-19 by their healthcare provider.This test has not been Food and Drug Administration (FDA) cleared or approved. This is a modified version of an approved Emergency Use Authorization (EUA) and is in the process of review by the FDA. Once authorized by the FDA, the issued EUA will be effective until the declaration that circumstances exist justifying the authorization of the emergency use ofin vitro diagnostic tests for detection and/or diagnosis of COVID-19 is terminated under Section 564(b)(2) of the Act or the EUA is revoked under Section 564(g) of the Act.Fact Sheet for Healthcare Prov iders:https://www.[employer]/sites/default/files/product/documents/Fact_Sheet_HC _Wttfrkauf_Admi_NIQO-OlP-3.pdfFact Sheet for Healthcare Patients:https://www.[employer]/sites/default/files/product/docume nts/Fyxp_Zyavc_Nftivafw_Bdwa_ZLXE-VgG-8.pdfPerforming Laboratory:[place] [address] [place], [place] [address]UWEEJ METABOLIC PANEL 2020-10-09 05:51:00 Test Item Value Reference Range Interpretation Comments SODIUM (BEAKER) 136 meq/L 136-145 (test code = 381) POTASSIUM (BEAKER) 4.5 meq/L 3.5-5.1 (test code = 379) CHLORIDE (BEAKER) 100 meq/L 98-107 (test code = 382) CO2 (BEAKER) (test 28 meq/L 22-29 code = 355) BLOOD UREA NITROGEN 17 mg/dL 7-21 (BEAKER) (test code = 354) CREATININE (BEAKER) 0.73 mg/dL 0.57-1.25 (test code = 358) GLUCOSE RANDOM 90 mg/dL 70-105 (BEAKER) (test code = 652) CALCIUM (BEAKER) 8.9 mg/dL 8.4-10.2 (test code = 697) EGFR (BEAKER) (test 149 mL/min/1.73 ESTIM ATED GFR IS code = 1092) sq m NOT ACCURATE CREATININE CLEARANCE IN PREDICTING GLOMERULAR FILTRATION RATE . ESTIMATED GFR I S NOT APPLICABLE FOR DIALYSIS PATIEN TS. Contact Acid Plant Operator Helper ID - KXGYTHquwqckig8407-08-92 14:29:00 Test Item Value Reference Range Interpretation Comments Potassium (test code = 5.0 meq/L 3.5-5.1 2823-3) CAROLINA (test code = CAROLINA) Contact Acid Plant Operator Helper ID - SANDY L Lab Interpretation (test Normal code = 39432-5) [facility] Test Item Value Reference Range Interpretation Comments POTASSIUM (BEAKER) (test code = 5.0 meq/L 3.5-5.1 379) Contact Acid Plant Operator Helper QING DELGADO [id number] 07:02:00 Test Item Value Reference Range Interpretation Comments Phosphorus (test code = 5.3 mg/dL 2.3-4.7 H 2777-1) CAROLINA (test code = CAROLINA) Contact Acid Plant Operator Helper ID Keyon Alatorre Lab Interpretation (test Abnormal code = 07616-8) [facility] [id number] 07:02:00 Test Item Value Reference Range Interpretation Comments SODIUM (BEAKER) 136 meq/L 136-145 (test code = 381) POTASSIUM (BEAKER) 5.2 meq/L 3.5-5.1 H (test code = 379) CHLORIDE (BEAKER) 99 meq/L 98-107 (test code = 382) CO2 (BEAKER) (test 27 meq/L 22-29 code = 355) BLOOD UREA NITROGEN 23 mg/dL 7-21 H (BEAKER) (test code = 354) CREATININE (BEAKER) 0.79 mg/dL 0.57-1.25 (test code = 358) GLUCOSE RANDOM 89 mg/dL 70-105 (BEAKER) (test code = 652) CALCIUM (BEAKER) 9.2 mg/dL 8.4-10.2 (test code = 697) EGFR (BEAKER) (test 136 mL/min/1.73 ESTIM ATED GFR IS code = 1092) sq m NOT ACCURATE CREATININE CLEARANCE IN PREDICTING GLOMERULAR FILTRATION RATE . ESTIMATED GFR I S NOT APPLICABLE FOR DIALYSIS PATIEN TS. Contact Acid Plant Operator Helper ID - JAMI [id number] 07:02:00 Test Item Value Reference Range Interpretation Comments MAGNESIUM (BEAKER) (test code = 1.8 mg/dL 1.6-2.6 627) Contact Acid Plant Operator Helper ID - JAMI [id number] 07:02:00 Test Item Value Reference Range Interpretation Comments PHOSPHORUS (BEAKER) (test code = 5.3 mg/dL 2.3-4.7 H 604) Contact Acid Plant Operator Helper ID - JAMI MHEPATIC FUNCTION [id number] 07:02:00 Test Item Value Reference Range Interpretation Comments TOTAL PROTEIN (BEAKER) (test code = 7.1 gm/dL 6.0-8.3 770) ALBUMIN (BEAKER) (test code = 1145) 3.1 g/dL 3.5-5.0 L BILIRUBIN TOTAL (BEAKER) (test code 0.3 mg/dL 0.2-1.2 = 377) BILIRUBIN DIRECT (BEAKER) (test 0.2 mg/dL 0.1-0.5 code = 706) ALKALINE PHOSPHATASE (BEAKER) (test 120 U/L 40-150 code = 346) AST (SGOT) (BEAKER) (test code = 28 U/L 5-34 353) ALT (SGPT) (BEAKER) (test code = 26 U/L 6-55 347) Contact Acid Plant Operator Helper ID - JAMI MCBC (Hemogram only)2020-10-06 06:03:00 Test Item Value Reference Range Interpretation Comments WBC (test code = 6690-2) 7.2 See_Comment [A utomated message] The system [employer] generated this result transmitted ref erence range: 3.5 - 10 .5 K/L. The refe rence range was not u sed to interpret this result as normal/abnor mal. RBC (test code = 789-8) 3.27 See_Comment L [Au tomated message] The system [employer] generated this result transmitted ref erence range: 4.63 - 6 .08 M/L. The refe rence range was not u sed to interpret this result as normal/abnor mal. MCHC (test code = 786-4) 30.8 See_Comment L [A utomated message] The system [employer] generated this result transmitted ref erence range: 32.3 - 3 6.5 GM/DL. The refe rence range was not u sed to interpret this result as normal/abnor mal. Hematocrit (test code = 31.8 % 40.1-51.0 L 4544-3) MCV (test code = 787-2) 97.2 fL 79.0-92.2 H MCH (test code = 785-6) 30.0 pg 25.7-32.2 RDW (test code = 788-0) 14.2 % 11.6-14.4 Platelets (test code = 327 See_Comment [Aut omated message] 777-3) The system [employer] generated this result transmitted ref erence range: 150 - 45 0 K/CU MM. The referen ce range was not u sed to interpret this result as normal/abnor mal. MPV (test code = 9.1 fL 9.4-12.4 L 54394-5) nRBC (test code = 413) 0 See_Comment [Aut omated message] The system [employer] generated this result transmitted ref erence range: 0 - 0 /1 00 WBC. The refere nce range was not u sed to interpret this result as normal/abnor mal. Lab Interpretation (test Abnormal code = 96424-3) [facility] (HEMOGRAM ONLY)2020-10-06 06:03:00 Test Item Value Reference Range Interpretation Comments WHITE BLOOD CELL COUNT (BEAKER) 7.2 K/ L 3.5-10.5 (test code = 775) RED BLOOD CELL COUNT (BEAKER) 3.27 M/ L 4.63-6.08 L (test code = 761) HEMOGLOBIN (BEAKER) (test code = 9.8 GM/DL 13.7-17.5 L 410) HEMATOCRIT (BEAKER) (test code = 31.8 % 40.1-51.0 L 411) MEAN CORPUSCULAR VOLUME (BEAKER) 97.2 fL 79.0-92.2 H (test code = 753) MEAN CORPUSCULAR HEMOGLOBIN 30.0 pg 25.7-32.2 (BEAKER) (test code = 751) MEAN CORPUSCULAR HEMOGLOBIN CONC 30.8 GM/DL 32.3-36.5 L (BEAKER) (test code = 752) RED CELL DISTRIBUTION WIDTH 14.2 % 11.6-14.4 (BEAKER) (test code = 412) PLATELET COUNT (BEAKER) (test 327 K/CU MM 150-450 code = 756) MEAN PLATELET VOLUME (BEAKER) 9.1 fL 9.4-12.4 L (test code = 754) NUCLEATED RED BLOOD CELLS 0 /100 WBC 0-0 (BEAKER) (test code = 413) SARS-COV2/RT-PCR ([facility])2020-10-03 09:24:00 Test Item Value Reference Range Interpretation Comments SARS-COV2/RT-PCR (test Negative Not Detected, Negative, code = 2815920) See external report for linked test SARS-COV-2 PERFORMING LAB [facility] (test code = 7879509) Negative result for this test determines that SARS-CoV-2 RNA was not present in the specimen above the Limit of Detection (LOD). However, Negative results do not preclude SARS-CoV-2 infection and should not be used as the sole basis for treatment or patient management decisions. Negative results must be combined with clinical observations, patient history, and epidemiological information. A false negative result may occur if a specimen is improperly collected, transported or handled. A false negative result should be considered if patient's recent exposures or clinical presentation indicate that COVID-19 (SARS-CoV-2) is likely and diagnostic tests for other causes of illness are negative. Re-testing should be considered in cases of suspected false negatives.The limit of detection for this assay is 800 copies/mL.This SARS CoV-2 test is a real-time RT-PCR test intended for the qualitative detection of nucleic acid from SARS-CoV-2 in a nasopharyngeal swab specimen collected from individuals suspected of COVID-19 by their healthcare provider.This test has not been Food and Drug Administration (FDA) cleared or approved. This is a modified version of an approved Emergency Use Authorization (EUA) and is in the process of review by the FDA. Once authorized by the FDA, the issued EUA will be effective until the declaration that circumstances exist justifying the authorization of the emergency use ofin vitro diagnostic tests for detection and/or diagnosis of COVID-19 is terminated under Section 564(b)(2) of the Act or the EUA is revoked under Section 564(g) of the Act.Fact Sheet for Healthcare Prov iders:https://www.[employer]/sites/default/files/product/documents/Fact_Sheet_HC _Uelqsvihl_Gldj_NJQM-DyP-6.pdfFact Sheet for Healthcare Patients:https://www.[employer]/sites/default/files/product/docume nts/Elpy_Imybl_Mnkcbvsh_Uevm_SBDU-EbM-2.pdfPerforming Laboratory:[place] [address], [place] [address]LWUPQ METABOLIC PANEL 2020-10-03 07:29:00 Test Item Value Reference Range Interpretation Comments SODIUM (BEAKER) 137 meq/L 136-145 (test code = 381) POTASSIUM (BEAKER) 5.1 meq/L 3.5-5.1 (test code = 379) CHLORIDE (BEAKER) 102 meq/L 98-107 (test code = 382) CO2 (BEAKER) (test 23 meq/L 22-29 code = 355) BLOOD UREA NITROGEN 19 mg/dL 7-21 (BEAKER) (test code = 354) CREATININE (BEAKER) 0.76 mg/dL 0.57-1.25 (test code = 358) GLUCOSE RANDOM 109 mg/dL 70-105 H (BEAKER) (test code = 652) CALCIUM (BEAKER) 9.3 mg/dL 8.4-10.2 (test code = 697) EGFR (BEAKER) (test 142 mL/min/1.73 ESTIM ATED GFR IS code = 1092) sq m NOT ACCURATE CREATININE CLEARANCE IN PREDICTING GLOMERULAR FILTRATION RATE . ESTIMATED GFR I S NOT APPLICABLE FOR DIALYSIS PATIEN TS. Contact Acid Plant Operator Helper ID - [id number] 07:29:00 Test Item Value Reference Range Interpretation Comments MAGNESIUM (BEAKER) (test code = 2.0 mg/dL 1.6-2.6 627) Contact Acid Plant Operator Helper ID - BSCBC (HEMOGRAM ONLY)2020-10-03 07:06:00 Test Item Value Reference Range Interpretation Comments WHITE BLOOD CELL COUNT (BEAKER) 8.7 K/ L 3.5-10.5 (test code = 775) RED BLOOD CELL COUNT (BEAKER) 3.31 M/ L 4.63-6.08 L (test code = 761) HEMOGLOBIN (BEAKER) (test code = 10.0 GM/DL 13.7-17.5 L 410) HEMATOCRIT (BEAKER) (test code = 31.7 % 40.1-51.0 L 411) MEAN CORPUSCULAR VOLUME (BEAKER) 95.8 fL 79.0-92.2 H (test code = 753) MEAN CORPUSCULAR HEMOGLOBIN 30.2 pg 25.7-32.2 (BEAKER) (test code = 751) MEAN CORPUSCULAR HEMOGLOBIN CONC 31.5 GM/DL 32.3-36.5 L (BEAKER) (test code = 752) RED CELL DISTRIBUTION WIDTH 14.3 % 11.6-14.4 (BEAKER) (test code = 412) PLATELET COUNT (BEAKER) (test 345 K/CU MM 150-450 code = 756) MEAN PLATELET VOLUME (BEAKER) 9.0 fL 9.4-12.4 L (test code = 754) NUCLEATED RED BLOOD CELLS 0 /100 WBC 0-0 (BEAKER) (test code = 413) CT, CHEST WITH IV CONTRAST- PE TEST [id number] 16:43:00Unlisted Reason for Exam - Click Yes and Enter Reason Below->No [facility]OR[facility] NARCISA : 1985 Sex: MFINAL REPORT CT Chest PE Protocol dated 10/02/2020 Clinical information: PE suspected, intermediate prob, positive D-dimer Technique: This exam was performed according to our departmental dose-optimization program, which includes automated exposure control, adjustment of the mA and/or kV according to patient size and/or use of interactive reconstruction technique. Precontrast axial images were obtained at pulmonary trunk level for the purpose of monitoring subsequent IV contrast. Postcontrast axial images of the chest were obtained from above the arch level to the lower chest at maximum enhancement of pulmonary artery. Delayed axial images of the entire chest were obtained subsequently. Coronal and sagittal reformations of the pulmonary arteries were performed. Comment: Heart is normal in size. A stent is seen in the thoracic arch extending to the distal descending thoracic aorta. Greater vessels are unremarkable. No filling detect is noted in the pulmonary trunk or pulmonary art eries. No adenopathy is noted in the mediastinum or perihilar region. Trachea and mainstem bronchi are patent. Both lungs are clear. No nodular, mass lesion or airspace is present. No pleural effusion or pleural base mass is seen. Impression: No pulmonary thromboembolism. Signed: Lulu Louie MDRort Verified Date/Time: 10/02/2020 16:43:56 Reading Location: [place] [address] CT Body Reading Room Prepare Leuko-Red [id number] 23:54:00 Test Item Value Reference Range Interpretation Comments CROSSMATCH (test code = 2264) COMPATIBLE Unit ABO (test code = A Pos 1003663) UNIT NUMBER (test code = [id number] 934-0) Status (test code = 9348209) [place]_TIMEINCHART Blood Bank Product (test code RED BLOOD CELLS = 2263) PRODUCT CODE (test code = M6205I37 933-2) [facility]2020-10-01 06:30:00 Test Item Value Reference Range Interpretation Comments BNP (test code = 97665-5) 34 pg/mL 0-100 CAROLINA (test code = CAROLINA) Contact Acid Plant Operator Helper ID - JAMI M Lab Interpretation (test Normal code = 12185-3) [facility] (BNP)2020-10-01 06:30:00 Test Item Value Reference Range Interpretation Comments B-TYPE NATRIURETIC PEPTIDE (BEAKER) 34 pg/mL 0-100 (test code = 700) Contact Acid Plant Operator Helper ID - JAMI UA-aryho3156-48-08 06:22:00 Test Item Value Reference Range Interpretation Comments D-Dimer, Quant (test 2.68 See_Comment H [Autom ated code = 81443-9) message] The system which generated this result transmitted reference range : <0.50 MG/L FEU. The reference range was not used to interpr et this result as normal/abnormal . CAROLINA (test code = CAROLINA) Intended Use: The D-Dimer Assay can be used to aid in the diagnosis of Deep Vein Thrombosis (DVT) and Pulmonary Embolism Disease (PED).In patients with low pre-test probability, various studies concerning STA Liatest D-dimer test have reported that with a cutoff value of 0.50 MG/L FEU, the Negative Predictive Value (NPV) regarding the exclusion of thrombosis is within 95-100% range. Lab Interpretation Abnormal (test code = 00177-8) [facility][id number] 06:22:00 Test Item Value Reference Range Interpretation Comments D-DIMER QUANTITATIVE (BEAKER) 2.68 MG/L FEU <0.50 H (test code = 671) Intended Use: The D-Dimer Assay can be used to aid in the diagnosis of Deep Vein Thrombosis (DVT) and Pulmonary Embolism Disease (PED).In patients with low pre- test probability, various studies concerning STA Liatest D-dimer test have reported that with a cutoff value of 0.50 MG/L FEU, the Negative Predictive Value (NPV) regarding the exclusion of thrombosis is within 95-100% range. Troponin [id number] 06:21:00 Test Item Value Reference Range Interpretation Comments Troponin I (test code = <0.01 0.00-0.03 38527-7) CAROLINA (test code = CAROLINA) Troponin I (TnI) levels must be interpreted in the context of the presenting symptoms and the clinical findings. Elevated TnI levels indicate myocardial damage, but are not specific for ischemic heart disease. Elevated TnI levels are seen in patients with other cardiac conditions (including myocarditis and congestive heart failure), and slight TnI elevations occur in patients with other conditions, including sepsis, renal failure, acidosis, acute neurological disease, and persistent tachyarrhythmia.Opera tor ID - JAMI M Lab Interpretation (test Normal code = 00650-0) [facility] [id number] 06:21:00 Test Item Value Reference Range Interpretation Comments TROPONIN I (BEAKER) (test code = 397) < ng/mL 0.00-0.03 Troponin I (TnI) levels must be interpreted in the context of the presenting symptoms and the clinical findings. Elevated TnI levels indicate myocardial damage, but are not specific for ischemic heart disease. Elevated TnI levels are seen in patients with other cardiac conditions (including myocarditis and congestive heart failure), and slight TnI elevations occur in patients with other conditions, including sepsis, renal failure, acidosis, acute neurological disease, and persistent tachyarrhythmia.Contact Acid Plant Operator Helper ID - JAMI MBASIC METABOLIC [id number] 05:23:00 Test Item Value Reference Range Interpretation Comments SODIUM (BEAKER) 138 meq/L 136-145 (test code = 381) POTASSIUM (BEAKER) 4.8 meq/L 3.5-5.1 (test code = 379) CHLORIDE (BEAKER) 101 meq/L 98-107 (test code = 382) CO2 (BEAKER) (test 25 meq/L 22-29 code = 355) BLOOD UREA NITROGEN 17 mg/dL 7-21 (BEAKER) (test code = 354) CREATININE (BEAKER) 0.79 mg/dL 0.57-1.25 (test code = 358) GLUCOSE RANDOM 89 mg/dL 70-105 (BEAKER) (test code = 652) CALCIUM (BEAKER) 9.2 mg/dL 8.4-10.2 (test code = 697) EGFR (BEAKER) (test 136 mL/min/1.73 ESTIM ATED GFR IS code = 1092) sq m NOT ACCURATE CREATININE CLEARANCE IN PREDICTING GLOMERULAR FILTRATION RATE . ESTIMATED GFR I S NOT APPLICABLE FOR DIALYSIS PATIEN TS. Contact Acid Plant Operator Helper ID - JAMI [id number] 05:23:00 Test Item Value Reference Range Interpretation Comments MAGNESIUM (BEAKER) (test code = 2.1 mg/dL 1.6-2.6 627) Contact Acid Plant Operator Helper ID - JAMI MCBC W/PLT COUNT & AUTO [id number] 04:58:00 Test Item Value Reference Range Interpretation Comments WHITE BLOOD CELL COUNT (BEAKER) 8.8 K/ L 3.5-10.5 (test code = 775) RED BLOOD CELL COUNT (BEAKER) 3.11 M/ L 4.63-6.08 L (test code = 761) HEMOGLOBIN (BEAKER) (test code = 9.5 GM/DL 13.7-17.5 L 410) HEMATOCRIT (BEAKER) (test code = 29.6 % 40.1-51.0 L 411) MEAN CORPUSCULAR VOLUME (BEAKER) 95.2 fL 79.0-92.2 H (test code = 753) MEAN CORPUSCULAR HEMOGLOBIN 30.5 pg 25.7-32.2 (BEAKER) (test code = 751) MEAN CORPUSCULAR HEMOGLOBIN CONC 32.1 GM/DL 32.3-36.5 L (BEAKER) (test code = 752) RED CELL DISTRIBUTION WIDTH 15.8 % 11.6-14.4 H (BEAKER) (test code = 412) PLATELET COUNT (BEAKER) (test 406 K/CU MM 150-450 code = 756) MEAN PLATELET VOLUME (BEAKER) 8.8 fL 9.4-12.4 L (test code = 754) NUCLEATED RED BLOOD CELLS 0 /100 WBC 0-0 (BEAKER) (test code = 413) NEUTROPHILS RELATIVE PERCENT 73 % (BEAKER) (test code = 429) LYMPHOCYTES RELATIVE PERCENT 15 % (BEAKER) (test code = 430) MONOCYTES RELATIVE PERCENT 9 % (BEAKER) (test code = 431) EOSINOPHILS RELATIVE PERCENT 2 % (BEAKER) (test code = 432) BASOPHILS RELATIVE PERCENT 0 % (BEAKER) (test code = 437) NEUTROPHILS ABSOLUTE COUNT 6.42 K/ L 1.78-5.38 H (BEAKER) (test code = 670) LYMPHOCYTES ABSOLUTE COUNT 1.32 K/ L 1.32-3.57 (BEAKER) (test code = 414) MONOCYTES ABSOLUTE COUNT (BEAKER) 0.80 K/ L 0.30-0.82 (test code = 415) EOSINOPHILS ABSOLUTE COUNT 0.16 K/ L 0.04-0.54 (BEAKER) (test code = 416) BASOPHILS ABSOLUTE COUNT (BEAKER) 0.03 K/ L 0.01-0.08 (test code = 417) IMMATURE GRANULOCYTES-RELATIVE 1 % 0-1 PERCENT (BEAKER) (test code = 2801) RAD, CHEST, 1 VIEW, NON [id number] 19:00:00Reason for exam:->[facility] 1985 Sex: MFINAL REPORT Exam: RAD, CHEST, 1 VIEW, NON DEPTDate: 09/30/2020 6:59 PM Indication: Chest Pain Comparison: Chest radiograph 09/19/2020 FINDINGS: Lines/Tubes:Status post thoracoabdominal aortic stent graft repair. Lungs:The lungs are moderately inflated. There is perihilar fullness and indistinctness of the pulmonary vasculature. No focal consolidation. Pleura:No pleural effusion. No pneumothorax. Heart/Mediastinum:The cardiomediastinal silhouette is normal in size and contour. Bones/Soft Tissues: No acute osseous injury. Abdomen: No free air below the diaphragm. IMPRESSION:No focal pneumonia or pulmonary edema. Signed: Rajesh Junior MDReport Verified Date/Time: 09/30/2020 19:00:32 Reading Location: [address] Transitional Reading Room ABOR, [id number] 09:19:00 Test Item Value Reference Range Interpretation Comments ABO Grouping (test code = 2588) A Rh Factor (test code = 2589) POS [facility], [id number] 09:16:00 Test Item Value Reference Range Interpretation Comments Ab Scrn (test code = 890-4) NEGATIVE ECHO2 [facility] [id number] 06:39:00 Test Item Value Reference Range Interpretation Comments SODIUM (BEAKER) 136 meq/L 136-145 (test code = 381) POTASSIUM (BEAKER) 4.6 meq/L 3.5-5.1 (test code = 379) CHLORIDE (BEAKER) 102 meq/L 98-107 (test code = 382) CO2 (BEAKER) (test 24 meq/L 22-29 code = 355) BLOOD UREA NITROGEN 17 mg/dL 7-21 (BEAKER) (test code = 354) CREATININE (BEAKER) 0.81 mg/dL 0.57-1.25 (test code = 358) GLUCOSE RANDOM 95 mg/dL 70-105 (BEAKER) (test code = 652) CALCIUM (BEAKER) 8.7 mg/dL 8.4-10.2 (test code = 697) EGFR (BEAKER) (test 132 mL/min/1.73 ESTIM ATED GFR IS code = 1092) sq m NOT ACCURATE CREATININE CLEARANCE IN PREDICTING GLOMERULAR FILTRATION RATE . ESTIMATED GFR I S NOT APPLICABLE FOR DIALYSIS PATIEN TS. Contact Acid Plant Operator Helper ID - PIAYA [id number] 06:39:00 Test Item Value Reference Range Interpretation Comments MAGNESIUM (BEAKER) (test code = 2.0 mg/dL 1.6-2.6 627) Contact Acid Plant Operator Helper ID - PIAYA LCBC (HEMOGRAM ONLY)2020-09-30 06:24:00 Test Item Value Reference Range Interpretation Comments WHITE BLOOD CELL COUNT (BEAKER) 8.4 K/ L 3.5-10.5 (test code = 775) RED BLOOD CELL COUNT (BEAKER) 2.33 M/ L 4.63-6.08 L (test code = 761) HEMOGLOBIN (BEAKER) (test code = 6.9 GM/DL 13.7-17.5 L 410) HEMATOCRIT (BEAKER) (test code = 22.6 % 40.1-51.0 L 411) MEAN CORPUSCULAR VOLUME (BEAKER) 97.0 fL 79.0-92.2 H (test code = 753) MEAN CORPUSCULAR HEMOGLOBIN 29.6 pg 25.7-32.2 (BEAKER) (test code = 751) MEAN CORPUSCULAR HEMOGLOBIN CONC 30.5 GM/DL 32.3-36.5 L (BEAKER) (test code = 752) RED CELL DISTRIBUTION WIDTH 15.1 % 11.6-14.4 H (BEAKER) (test code = 412) PLATELET COUNT (BEAKER) (test 403 K/CU MM 150-450 code = 756) MEAN PLATELET VOLUME (BEAKER) 8.9 fL 9.4-12.4 L (test code = 754) NUCLEATED RED BLOOD CELLS 0 /100 WBC 0-0 (BEAKER) (test code = 413) Blood Culture - Routine (Right Venipuncture)2020-09-26 23:01:00 Test Item Value Reference Range Interpretation Comments Result (test code = No growth in 5 days 6463-4) [id number]00 Test Item Value Reference Range Interpretation Comments CULTURE (BEAKER) (test No growth in 5 days code = 1095) BLOOD [id number] 20:01:00 Test Item Value Reference Range Interpretation Comments CULTURE (BEAKER) (test No growth in 5 days code = 1095) BLOOD [id number] 12:00:00 Test Item Value Reference Range Interpretation Comments CULTURE (BEAKER) (test No growth in 5 days code = 1095) BLOOD [id number] 12:00:00 Test Item Value Reference Range Interpretation Comments CULTURE (BEAKER) (test No growth in 5 days code = 1095) BLOOD [id number] 10:30:00 Test Item Value Reference Range Interpretation Comments CULTURE (BEAKER) A From Anaero bic (test code = Bottle Only Gra m 1095) positive rodsMo st closely resembl es* - Eggerthella lakshmi ta GRAM STAIN From anaerobic RESULT (BEAKER) bottle only: gram (test code = positive rods 1123) [id number] 09:49:00 Test Item Value Reference Range Interpretation Comments Prealbumin (test code = 13 mg/dL 14-45 L 18449-6) CAROLINA (test code = CAROLINA) Contact Acid Plant Operator Helper ID - EDASI Lab Interpretation (test Abnormal code = 82509-0) [facility] 09:[facility]:00 Test Item Value Reference Range Interpretation Comments PREALBUMIN (BEAKER) (test code = 13 mg/dL 14-45 L 586) Contact Acid Plant Operator Helper ID - EDASIBASIC METABOLIC [id number] 07:12:00 Test Item Value Reference Range Interpretation Comments SODIUM (BEAKER) 133 meq/L 136-145 L (test code = 381) POTASSIUM (BEAKER) 4.4 meq/L 3.5-5.1 Specimen slightly (test code = 379) hemolyzed CHLORIDE (BEAKER) 101 meq/L 98-107 (test code = 382) CO2 (BEAKER) (test 23 meq/L 22-29 code = 355) BLOOD UREA NITROGEN 15 mg/dL 7-21 (BEAKER) (test code = 354) CREATININE (BEAKER) 0.71 mg/dL 0.57-1.25 Specimen slightly (test code = 358) hemolyzed GLUCOSE RANDOM 104 mg/dL 70-105 (BEAKER) (test code = 652) CALCIUM (BEAKER) 8.5 mg/dL 8.4-10.2 (test code = 697) EGFR (BEAKER) (test 154 mL/min/1.73 ESTIM ATED GFR IS code = 1092) sq m NOT ACCURATE CREATININE CLEARANCE IN PREDICTING GLOMERULAR FILTRATION RATE . ESTIMATED GFR I S NOT APPLICABLE FOR DIALYSIS PATIEN TS. Contact Acid Plant Operator Helper ID - PIAYA LCBC (HEMOGRAM ONLY)2020-09-24 05:55:00 Test Item Value Reference Range Interpretation Comments WHITE BLOOD CELL COUNT (BEAKER) 6.7 K/ L 3.5-10.5 (test code = 775) RED BLOOD CELL COUNT (BEAKER) 2.52 M/ L 4.63-6.08 L (test code = 761) HEMOGLOBIN (BEAKER) (test code = 7.7 GM/DL 13.7-17.5 L 410) HEMATOCRIT (BEAKER) (test code = 23.8 % 40.1-51.0 L 411) MEAN CORPUSCULAR VOLUME (BEAKER) 94.4 fL 79.0-92.2 H (test code = 753) MEAN CORPUSCULAR HEMOGLOBIN 30.6 pg 25.7-32.2 (BEAKER) (test code = 751) MEAN CORPUSCULAR HEMOGLOBIN CONC 32.4 GM/DL 32.3-36.5 (BEAKER) (test code = 752) RED CELL DISTRIBUTION WIDTH 14.4 % 11.6-14.4 (BEAKER) (test code = 412) PLATELET COUNT (BEAKER) (test 452 K/CU MM 150-450 H code = 756) MEAN PLATELET VOLUME (BEAKER) 9.7 fL 9.4-12.4 (test code = 754) NUCLEATED RED BLOOD CELLS 0 /100 WBC 0-0 (BEAKER) (test code = 413) BASIC METABOLIC [id number] 09:55:00 Test Item Value Reference Range Interpretation Comments SODIUM (BEAKER) 134 meq/L 136-145 L (test code = 381) POTASSIUM (BEAKER) 4.2 meq/L 3.5-5.1 Specimen slightly (test code = 379) hemolyzed CHLORIDE (BEAKER) 102 meq/L 98-107 (test code = 382) CO2 (BEAKER) (test 24 meq/L 22-29 code = 355) BLOOD UREA NITROGEN 15 mg/dL 7-21 (BEAKER) (test code = 354) CREATININE (BEAKER) 0.78 mg/dL 0.57-1.25 Specimen slightly (test code = 358) hemolyzed GLUCOSE RANDOM 84 mg/dL 70-105 (BEAKER) (test code = 652) CALCIUM (BEAKER) 9.0 mg/dL 8.4-10.2 (test code = 697) EGFR (BEAKER) (test 138 mL/min/1.73 ESTIM ATED GFR IS code = 1092) sq m NOT ACCURATE CREATININE CLEARANCE IN PREDICTING GLOMERULAR FILTRATION RATE . ESTIMATED GFR I S NOT APPLICABLE FOR DIALYSIS PATIEN TS. Contact Acid Plant Operator Helper ID - NEHEMIAH CCBC (HEMOGRAM ONLY)2020-09-23 09:12:00 Test Item Value Reference Range Interpretation Comments WHITE BLOOD CELL COUNT (BEAKER) 5.6 K/ L 3.5-10.5 (test code = 775) RED BLOOD CELL COUNT (BEAKER) 2.81 M/ L 4.63-6.08 L (test code = 761) HEMOGLOBIN (BEAKER) (test code = 8.6 GM/DL 13.7-17.5 L 410) HEMATOCRIT (BEAKER) (test code = 26.5 % 40.1-51.0 L 411) MEAN CORPUSCULAR VOLUME (BEAKER) 94.3 fL 79.0-92.2 H (test code = 753) MEAN CORPUSCULAR HEMOGLOBIN 30.6 pg 25.7-32.2 (BEAKER) (test code = 751) MEAN CORPUSCULAR HEMOGLOBIN CONC 32.5 GM/DL 32.3-36.5 (BEAKER) (test code = 752) RED CELL DISTRIBUTION WIDTH 14.2 % 11.6-14.4 (BEAKER) (test code = 412) PLATELET COUNT (BEAKER) (test 425 K/CU MM 150-450 code = 756) MEAN PLATELET VOLUME (BEAKER) 9.5 fL 9.4-12.4 (test code = 754) NUCLEATED RED BLOOD CELLS 0 /100 WBC 0-0 (BEAKER) (test code = 413) [id number] 13:05:00 Test Item Value Reference Range Interpretation Comments Ferritin (test code = 1393.05 ng/mL 5.00-275.00 H 2276-4) CAROLINA (test code = CAROLINA) Contact Acid Plant Operator Helper ID - SANDY L Lab Interpretation (test Abnormal code = 31876-4) [facility]it[facility] B[facility] and [id number] 13:05:00 Test Item Value Reference Range Interpretation Comments Vitamin B12 (test 299 pg/mL 213-816 code = 2132-9) Folate (test code = 14.30 ng/mL See_Comment [Automa kar 2284-8) message] The system which generated this result transmit kar reference range : >=7.00. The reference range was not used to interpret this result as normal/abnormal . CAROLINA (test code = CAROLINA) Contact Acid Plant Operator Helper ID - LISAREY L Lab Interpretation Normal (test code = 20651-0) [facility] 13:05:00 Test Item Value Reference Range Interpretation Comments FERRITIN (BEAKER) (test code = 1393.05 ng/mL 5.00-275.00 H 361) Contact Acid Plant Operator Helper ID - SANDY LVITAMIN B12 AND [id number] 13:05:00 Test Item Value Reference Range Interpretation Comments VITAMIN B12 299 pg/mL 213-816 (BEAKER) (test code = 774) FOLATE (BEAKER) 14.30 ng/mL See_Comment [Automated message] (test code = 362) The system which generated this result transmitted ref erence range: >=7.00. The reference range was not used to interpr et this result as normal/abnormal . Contact Acid Plant Operator Helper ID - SANDY Michaud, TIBC, % sat. (without ferritin)2020-09-22 12:37:00 Test Item Value Reference Range Interpretation Comments Iron (test code = 2498-4) 43.0 ug/dL 40.0-160.0 TIBC (test code = 2500-7) 160 ug/dL 250-450 L Iron % Saturation (test 27 % 20-55 code = 2502-3) CAROLINA (test code = CAROLINA) Contact Acid Plant Operator Helper ID - SANDY Winsome Lab Interpretation (test Abnormal code = 36185-7) [facility] TIBC, % SAT. (WITHOUT FERRITIN)2020-09-22 12:37:00 Test Item Value Reference Range Interpretation Comments IRON (BEAKER) (test code = 547) 43.0 ug/dL 40.0-160.0 TOTAL IRON BINDING CAPACITY 160 ug/dL 250-450 L (BEAKER) (test code = 769) IRON % SATURATION (2) (BEAKER) 27 % 20-55 (test code = 2590) Contact Acid Plant Operator Helper ID - SANDY LHemoglobin and [id number] 12:11:00 Test Item Value Reference Range Interpretation Comments Hemoglobin (test code 8.2 See_Comment L [Auto mated = 786-4) message] The system which generated this result transmit kar reference range : 13.7 - 17.5 GM/ DL. The reference range was not u sed to interpret th is result as normal/abnormal . Hematocrit (test code 26.1 % 40.1-51.0 L = 4544-3) CAROLINA (test code = CAROLINA) Contact Acid Plant Operator Helper ID - 6000 Lab Interpretation Abnormal (test code = 16185-2) [facility]HEMOGLOBIN AND [id number] 12:11:00 Test Item Value Reference Range Interpretation Comments HEMOGLOBIN (BEAKER) (test code = 8.2 GM/DL 13.7-17.5 L 410) HEMATOCRIT (BEAKER) (test code = 26.1 % 40.1-51.0 L 411) Contact Acid Plant Operator Helper ID - 6000BASIC METABOLIC [id number] 04:05:00 Test Item Value Reference Range Interpretation Comments SODIUM (BEAKER) 133 meq/L 136-145 L (test code = 381) POTASSIUM (BEAKER) 4.3 meq/L 3.5-5.1 (test code = 379) CHLORIDE (BEAKER) 100 meq/L 98-107 (test code = 382) CO2 (BEAKER) (test 22 meq/L 22-29 code = 355) BLOOD UREA NITROGEN 19 mg/dL 7-21 (BEAKER) (test code = 354) CREATININE (BEAKER) 0.82 mg/dL 0.57-1.25 (test code = 358) GLUCOSE RANDOM 106 mg/dL 70-105 H (BEAKER) (test code = 652) CALCIUM (BEAKER) 9.1 mg/dL 8.4-10.2 (test code = 697) EGFR (BEAKER) (test 130 mL/min/1.73 ESTIM ATED GFR IS code = 1092) sq m NOT ACCURATE CREATININE CLEARANCE IN PREDICTING GLOMERULAR FILTRATION RATE . ESTIMATED GFR I S NOT APPLICABLE FOR DIALYSIS PATIEN TS. Contact Acid Plant Operator Helper ID - PIAYA LCBC (HEMOGRAM ONLY)2020-09-22 03:41:00 Test Item Value Reference Range Interpretation Comments WHITE BLOOD CELL COUNT (BEAKER) 8.5 K/ L 3.5-10.5 (test code = 775) RED BLOOD CELL COUNT (BEAKER) 2.63 M/ L 4.63-6.08 L (test code = 761) HEMOGLOBIN (BEAKER) (test code = 7.9 GM/DL 13.7-17.5 L 410) HEMATOCRIT (BEAKER) (test code = 24.6 % 40.1-51.0 L 411) MEAN CORPUSCULAR VOLUME (BEAKER) 93.5 fL 79.0-92.2 H (test code = 753) MEAN CORPUSCULAR HEMOGLOBIN 30.0 pg 25.7-32.2 (BEAKER) (test code = 751) MEAN CORPUSCULAR HEMOGLOBIN CONC 32.1 GM/DL 32.3-36.5 L (BEAKER) (test code = 752) RED CELL DISTRIBUTION WIDTH 14.2 % 11.6-14.4 (BEAKER) (test code = 412) PLATELET COUNT (BEAKER) (test 350 K/CU MM 150-450 code = 756) MEAN PLATELET VOLUME (BEAKER) 9.3 fL 9.4-12.4 L (test code = 754) NUCLEATED RED BLOOD CELLS 0 /100 WBC 0-0 (BEAKER) (test code = 413) BASIC METABOLIC [id number] 04:37:00 Test Item Value Reference Range Interpretation Comments SODIUM (BEAKER) 134 meq/L 136-145 L (test code = 381) POTASSIUM (BEAKER) 4.5 meq/L 3.5-5.1 (test code = 379) CHLORIDE (BEAKER) 100 meq/L 98-107 (test code = 382) CO2 (BEAKER) (test 22 meq/L 22-29 code = 355) BLOOD UREA NITROGEN 23 mg/dL 7-21 H (BEAKER) (test code = 354) CREATININE (BEAKER) 0.98 mg/dL 0.57-1.25 (test code = 358) GLUCOSE RANDOM 109 mg/dL 70-105 H (BEAKER) (test code = 652) CALCIUM (BEAKER) 9.6 mg/dL 8.4-10.2 (test code = 697) EGFR (BEAKER) (test 106 mL/min/1.73 ESTIM ATED GFR IS code = 1092) sq m NOT ACCURATE CREATININE CLEARANCE IN PREDICTING GLOMERULAR FILTRATION RATE . ESTIMATED GFR I S NOT APPLICABLE FOR DIALYSIS PATIEN TS. Contact Acid Plant Operator Helper ID - JAMI MCBC (HEMOGRAM ONLY)2020-09-21 04:12:00 Test Item Value Reference Range Interpretation Comments WHITE BLOOD CELL COUNT (BEAKER) 10.1 K/ L 3.5-10.5 (test code = 775) RED BLOOD CELL COUNT (BEAKER) 2.98 M/ L 4.63-6.08 L (test code = 761) HEMOGLOBIN (BEAKER) (test code = 9.1 GM/DL 13.7-17.5 L 410) HEMATOCRIT (BEAKER) (test code = 29.0 % 40.1-51.0 L 411) MEAN CORPUSCULAR VOLUME (BEAKER) 97.3 fL 79.0-92.2 H (test code = 753) MEAN CORPUSCULAR HEMOGLOBIN 30.5 pg 25.7-32.2 (BEAKER) (test code = 751) MEAN CORPUSCULAR HEMOGLOBIN CONC 31.4 GM/DL 32.3-36.5 L (BEAKER) (test code = 752) RED CELL DISTRIBUTION WIDTH 14.5 % 11.6-14.4 H (BEAKER) (test code = 412) PLATELET COUNT (BEAKER) (test 387 K/CU MM 150-450 code = 756) MEAN PLATELET VOLUME (BEAKER) 9.5 fL 9.4-12.4 (test code = 754) NUCLEATED RED BLOOD CELLS 0 /100 WBC 0-0 (BEAKER) (test code = 413) BASIC METABOLIC [id number] 09:40:00 Test Item Value Reference Range Interpretation Comments SODIUM (BEAKER) 134 meq/L 136-145 L (test code = 381) POTASSIUM (BEAKER) 4.4 meq/L 3.5-5.1 (test code = 379) CHLORIDE (BEAKER) 101 meq/L 98-107 (test code = 382) CO2 (BEAKER) (test 20 meq/L 22-29 L code = 355) BLOOD UREA NITROGEN 20 mg/dL 7-21 (BEAKER) (test code = 354) CREATININE (BEAKER) 0.96 mg/dL 0.57-1.25 (test code = 358) GLUCOSE RANDOM 92 mg/dL 70-105 (BEAKER) (test code = 652) CALCIUM (BEAKER) 9.4 mg/dL 8.4-10.2 (test code = 697) EGFR (BEAKER) (test 109 mL/min/1.73 ESTIM ATED GFR IS code = 1092) sq m NOT ACCURATE CREATININE CLEARANCE IN PREDICTING GLOMERULAR FILTRATION RATE . ESTIMATED GFR I S NOT APPLICABLE FOR DIALYSIS PATIEN TS. Contact Acid Plant Operator Helper ID - NEHEMIAH CCBC W/PLT COUNT & AUTO [id number] 09:24:00 Test Item Value Reference Range Interpretation Comments WHITE BLOOD CELL COUNT (BEAKER) 9.6 K/ L 3.5-10.5 (test code = 775) RED BLOOD CELL COUNT (BEAKER) 2.76 M/ L 4.63-6.08 L (test code = 761) HEMOGLOBIN (BEAKER) (test code = 8.5 GM/DL 13.7-17.5 L 410) HEMATOCRIT (BEAKER) (test code = 26.4 % 40.1-51.0 L 411) MEAN CORPUSCULAR VOLUME (BEAKER) 95.7 fL 79.0-92.2 H (test code = 753) MEAN CORPUSCULAR HEMOGLOBIN 30.8 pg 25.7-32.2 (BEAKER) (test code = 751) MEAN CORPUSCULAR HEMOGLOBIN CONC 32.2 GM/DL 32.3-36.5 L (BEAKER) (test code = 752) RED CELL DISTRIBUTION WIDTH 14.4 % 11.6-14.4 (BEAKER) (test code = 412) PLATELET COUNT (BEAKER) (test 343 K/CU MM 150-450 code = 756) MEAN PLATELET VOLUME (BEAKER) 8.6 fL 9.4-12.4 L (test code = 754) NUCLEATED RED BLOOD CELLS 0 /100 WBC 0-0 (BEAKER) (test code = 413) NEUTROPHILS RELATIVE PERCENT 81 % (BEAKER) (test code = 429) LYMPHOCYTES RELATIVE PERCENT 9 % (BEAKER) (test code = 430) MONOCYTES RELATIVE PERCENT 9 % (BEAKER) (test code = 431) EOSINOPHILS RELATIVE PERCENT 1 % (BEAKER) (test code = 432) BASOPHILS RELATIVE PERCENT 0 % (BEAKER) (test code = 437) NEUTROPHILS ABSOLUTE COUNT 7.75 K/ L 1.78-5.38 H (BEAKER) (test code = 670) LYMPHOCYTES ABSOLUTE COUNT 0.85 K/ L 1.32-3.57 L (BEAKER) (test code = 414) MONOCYTES ABSOLUTE COUNT (BEAKER) 0.85 K/ L 0.30-0.82 H (test code = 415) EOSINOPHILS ABSOLUTE COUNT 0.05 K/ L 0.04-0.54 (BEAKER) (test code = 416) BASOPHILS ABSOLUTE COUNT (BEAKER) 0.02 K/ L 0.01-0.08 (test code = 417) IMMATURE GRANULOCYTES-RELATIVE 0 % 0-1 PERCENT (BEAKER) (test code = 2801) SARS-COV2/RT-PCR ([facility])2020-09-19 10:28:00 Test Item Value Reference Range Interpretation Comments SARS-COV2/RT-PCR (test Negative Not Detected, Negative, code = 1803892) See external report for linked test SARS-COV-2 PERFORMING LAB [facility] ION (test code = 8459831) Negative result for this test determines that SARS-CoV-2 RNA was not present in the specimen above the Limit of Detection (LOD). However, Negative results do not preclude SARS-CoV-2 infection and should not be used as the sole basis for treatment or patient management decisions. Negative results must be combined with clinical observations, patient history, and epidemiological information. A false negative result may occur if a specimen is improperly collected, transported or handled. A false negative result should be considered if patient's recent exposures or clinical presentation indicate that COVID-19 (SARS-CoV-2) is likely and diagnostic tests for other causes of illness are negative. Re-testing should be considered in cases of suspected false negatives.The limit of detection for this assay is 800 copies/mL.This SARS CoV-2 test is a real-time RT-PCR test intended for the qualitative detection of nucleic acid from SARS-CoV-2 in a nasopharyngeal swab specimen collected from individuals suspected of COVID-19 by their healthcare provider.This test has not been Food and Drug Administration (FDA) cleared or approved. This is a modified version of an approved Emergency Use Authorization (EUA) and is in the process of review by the FDA. Once authorized by the FDA, the issued EUA will be effective until the declaration that circumstances exist justifying the authorization of the emergency use ofin vitro diagnostic tests for detection and/or diagnosis of COVID-19 is terminated under Section 564(b)(2) of the Act or the EUA is revoked under Section 564(g) of the Act.Fact Sheet for Healthcare Prov iders:https://www.[employer]/sites/default/files/product/documents/Fact_Sheet_HC _Gpvicvzeh_Cjiv_YXIP-EiP-2.pdfFact Sheet for Healthcare Patients:https://www.[employer]/sites/default/files/product/docume nts/Vdvb_Rcxgd_Kgawxnbq_Elje_JYSM-ReP-3.pdfPerforming Laboratory:[facility], [place] [address]Jnhfjrurwb w/Microscopic + Reflex to [id number] 07:44:00 Test Item Value Reference Range Interpretation Comments Color, UA (test code Yellow = 5778-6) Clarity, UA (test Hazy code = 5767-9) Specific Commerce, UA 1.018 1.001-1.035 (test code = 5811-5) pH, UA (test code = 5.5 5.0-8.0 5803-2) Protein, UA (test 50 mg/dL Negative A code = 02066-0) Glucose, UA (test Negative Negative code = 365) Ketones, UA (test Negative Negative code = 2514-8) Bilirubin, UA (test Negative Negative code = 48863-6) Blood, UA (test code Negative Negative = 67475-0) Nitrite, UA (test Negative Negative code = 5802-4) Leukocytes, UA (test Large Negative A code = 5799-2) Urobilinogen, UA 6.0 mg/dL 0.2-1.0 H (test code = 89391-3) RBC, UA (test code = 2 See_Comment [Autom ated 62928-8) message] The system which generated this result transmit kar reference range : /HPF. The reference range was not used to interpret this result as normal/abnormal . WBC, UA (test code = 174 See_Comment [Autom ated 5821-4) message] The system which generated this result transmit kar reference range : /HPF. The reference range was not used to interpret this result as normal/abnormal . Bacteria, UA (test Moderate code = 97028-7) Mucus (test code = Rare 8247-9) Hyaline Casts, UA 1 See_Comment [Automate d (test code = 25050-3) messag e] The system which generated this result transmit kar reference range : /LPF. The reference range was not used to interpret this result as normal/abnormal . Specimen Source (test code = 2795) CAROLINA (test code = CAROLINA) Contact Acid Plant Operator Helper ID - [auto]Contact Acid Plant Operator Helper ID - tech Lab Interpretation Abnormal (test code = 35743-0) [facility] [id number] 07:44:00 Test Item Value Reference Range Interpretation Comments COLOR (BEAKER) (test code = 470) Yellow CLARITY (BEAKER) (test code = 469) Hazy SPECIFIC GRAVITY UA (BEAKER) (test 1.018 1.001-1.035 code = 468) PH UA (BEAKER) (test code = 467) 5.5 5.0-8.0 PROTEIN UA (BEAKER) (test code = 50 mg/dL Negative A 464) GLUCOSE UA (BEAKER) (test code = Negative Negative 365) KETONES UA (BEAKER) (test code = Negative Negative 371) BILIRUBIN UA (BEAKER) (test code = Negative Negative 462) BLOOD UA (BEAKER) (test code = 461) Negative Negative NITRITE UA (BEAKER) (test code = Negative Negative 465) LEUKOCYTE ESTERASE UA (BEAKER) Large Negative A (test code = 466) UROBILINOGEN UA (BEAKER) (test code 6.0 mg/dL 0.2-1.0 H = 463) RBC UA (BEAKER) (test code = 519) 2 /HPF WBC UA (BEAKER) (test code = 520) 174 /HPF BACTERIA (BEAKER) (test code = 517) Moderate MUCUS (BEAKER) (test code = 1574) Rare HYALINE CASTS (BEAKER) (test code = 1 /LPF 514) SOURCE(BEAKER) (test code = 2795) Contact Acid Plant Operator Helper ID - [auto]Contact Acid Plant Operator Helper ID - techRAD, CHEST, 1 VIEW, NON [id number] 07:40:00Reason for exam:->r/o PNAShould this be performed at the bedside?->YesAL[facility] : 1985 Sex: MFINAL REPORT RAD, CHEST, 1 VIEW, NON DEPT INDICATION: r/o PNA COMPARISON: February 20, 2020 FINDINGS: Portable frontal view of the chest. IMPRESSION: Support Lines: None Lungs and pleura: No discrete consolidation. No effusion. No pneumothorax.Heart and mediastinum: Stable contours. Stable endovascular surgical changes.Additional findings: None. Signed: JR Gonzales Robert MDReport Verified Date/Time: 09/19/2020 07:40:51 Reading Location: [address] Neuro Reading Room BASIC METABOLIC [id number] 04:31:00 Test Item Value Reference Range Interpretation Comments SODIUM (BEAKER) 131 meq/L 136-145 L (test code = 381) POTASSIUM (BEAKER) 4.5 meq/L 3.5-5.1 (test code = 379) CHLORIDE (BEAKER) 99 meq/L 98-107 (test code = 382) CO2 (BEAKER) (test 21 meq/L 22-29 L code = 355) BLOOD UREA NITROGEN 16 mg/dL 7-21 (BEAKER) (test code = 354) CREATININE (BEAKER) 0.90 mg/dL 0.57-1.25 (test code = 358) GLUCOSE RANDOM 101 mg/dL 70-105 (BEAKER) (test code = 652) CALCIUM (BEAKER) 9.5 mg/dL 8.4-10.2 (test code = 697) EGFR (BEAKER) (test 117 mL/min/1.73 ESTIM ATED GFR IS code = 1092) sq m NOT ACCURATE CREATININE CLEARANCE IN PREDICTING GLOMERULAR FILTRATION RATE . ESTIMATED GFR I S NOT APPLICABLE FOR DIALYSIS PATIEN TS. Contact Acid Plant Operator Helper ID - DBCBC (HEMOGRAM ONLY)2020-09-19 04:10:00 Test Item Value Reference Range Interpretation Comments WHITE BLOOD CELL COUNT (BEAKER) 10.4 K/ L 3.5-10.5 (test code = 775) RED BLOOD CELL COUNT (BEAKER) 2.67 M/ L 4.63-6.08 L (test code = 761) HEMOGLOBIN (BEAKER) (test code = 8.2 GM/DL 13.7-17.5 L 410) HEMATOCRIT (BEAKER) (test code = 25.3 % 40.1-51.0 L 411) MEAN CORPUSCULAR VOLUME (BEAKER) 94.8 fL 79.0-92.2 H (test code = 753) MEAN CORPUSCULAR HEMOGLOBIN 30.7 pg 25.7-32.2 (BEAKER) (test code = 751) MEAN CORPUSCULAR HEMOGLOBIN CONC 32.4 GM/DL 32.3-36.5 (BEAKER) (test code = 752) RED CELL DISTRIBUTION WIDTH 14.3 % 11.6-14.4 (BEAKER) (test code = 412) PLATELET COUNT (BEAKER) (test 344 K/CU MM 150-450 code = 756) MEAN PLATELET VOLUME (BEAKER) 9.3 fL 9.4-12.4 L (test code = 754) NUCLEATED RED BLOOD CELLS 0 /100 WBC 0-0 (BEAKER) (test code = 413) BLOOD [id number] 19:00:00 Test Item Value Reference Range Interpretation Comments CULTURE (BEAKER) (test No growth in 5 days code = 1095) BLOOD [id number] 19:00:00 Test Item Value Reference Range Interpretation Comments CULTURE (BEAKER) (test No growth in 5 days code = 1095) NEEDLE EMG, 4 [id number] 17:54:00Reason for exam:->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 Neurophysiology Department EMG/NCS [address] [place] [address] JOSH [place]:[email or web address] Name: ; Jorge Goins ; {CR} Patient ID: ; [id number] ; {CR} Date of : ; 1985 ; {CR} Gender: ; Male ; {CR} Date of Exam: ; 09/15/2020 ; {CR} Referring Physician: ; Ace Armstrong M.D. ; {CR} Examining Physician: ; Demetrio Schuler M.D. ; {CR} JOSH [place]:[email or web address] Patient History: FILLIN VikingSubReport:MNC_B.NICMotor Nerve Conduction: Nerve and Site ; Latency ; Amplitude ; Segment ; Latency Difference ; Distance ; Conduction Velocity ; {CR} Peroneal.L ; {CR} Ankle ; NR ms ; NR mV ; Extensor digitorum brevis-Ankle ; ms ; mm ; m/s ; {CR} Fibula (head) ; NR ms ; NR mV ; Ankle-Fibula (head) ; ms ; mm ; m/s ; {CR} Tibial.L ; {CR} Ankle ; NR ms ; NR mV ; Abductor hallucis- Ankle ; ms ; mm ; m/s ; {CR} Peroneal.L Tibialis Anterior ; {CR} Fibula (head) ; NR ms ; NR mV ; ; ms ; mm ; m/s ;{CR} Peroneal.R Tibialis Anterior ; {CR} Fibula (head) ; ms ; mV ; ; ms ; mm ; m/s ; {CR} Peroneal.R; {CR} Ankle ; NR ms ; NR mV ; Extensor digitorum brevis-Ankle ; ms ; mm ; m/s ; {CR} Tibial.R ; {CR} Ankle ; NR ms ; NR mV ; Abductor hallucis-Ankle ; ms ; mm ; m/s ; {CR} FILLIN VikingSubReport:F-[id number]_[id number].NICF-Wave Studies Nerve ; M-Latency ; F-Latency ; {CR} Peroneal.L ; ABS ; ; {CR} FILLIN VikingSubReport:SNC_B.NICSensory Nerve Conduction: Nerve and Site ; Onset Latency ; Peak Latency ; Amplitude; Segment ; Latency Difference ; Distance ; Conduction Velocity ; {CR} Sural.L ; {CR} Lower leg ; NRms ; NR ms ; NR mV ; Ankle-Lower leg ; ms ; mm ; m/s ; {CR} Sural.R ; {CR} Lower leg ; NR ms ; NR ms; NR mV ; Ankle-Lower leg ; ms ; mm ; m/s ; {CR} FILLIN VikingSubReport:ANS_B.TUYET FILLIN VikingSubReport:H-WAVE_B.TUYET EMG Muscle Fibs/Positive Fasciculations Duration Amplitude Pattern R v. medialis 1+None --- ---- NVU R v lateralis 1+ None --- ---- NVU R tibialis ant. 3+ None --- ---- NVU R gastroc. 3+ Few --- ---- NVU R EDB 2+ None --- ---- NVU L v. medialis 2+ None --- ---- NVU L v lateralis 2+ None --- ---- NVU L tibialis ant 3+ Few --- ---- NVU L EDB 2+ Few --- ---- NVU Findings: Nerve conduction studies demonstrate absent sensory and motor responses in both lower extremities. EMG demonstrates extensive denervation without voluntary movement of any muscles in the lower extremities. 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 Demetrio Schuler M.D. BASIC METABOLIC [id number] 09:32:00 Test Item Value Reference Range Interpretation Comments SODIUM (BEAKER) 131 meq/L 136-145 L (test code = 381) POTASSIUM (BEAKER) 4.7 meq/L 3.5-5.1 (test code = 379) CHLORIDE (BEAKER) 102 meq/L 98-107 (test code = 382) CO2 (BEAKER) (test 19 meq/L 22-29 L code = 355) BLOOD UREA NITROGEN 16 mg/dL 7-21 (BEAKER) (test code = 354) CREATININE (BEAKER) 0.81 mg/dL 0.57-1.25 (test code = 358) GLUCOSE RANDOM 75 mg/dL 70-105 (BEAKER) (test code = 652) CALCIUM (BEAKER) 9.5 mg/dL 8.4-10.2 (test code = 697) EGFR (BEAKER) (test 132 mL/min/1.73 ESTIM ATED GFR IS code = 1092) sq m NOT ACCURATE CREATININE CLEARANCE IN PREDICTING GLOMERULAR FILTRATION RATE . ESTIMATED GFR I S NOT APPLICABLE FOR DIALYSIS PATIEN TS. Contact Acid Plant Operator Helper ID - WENDI [id number] 04:24:00 Test Item Value Reference Range Interpretation Comments MAGNESIUM (BEAKER) (test code = 1.8 mg/dL 1.6-2.6 627) Contact Acid Plant Operator Helper ID - JAMI [id number] 04:24:00 Test Item Value Reference Range Interpretation Comments PHOSPHORUS (BEAKER) (test code = 4.5 mg/dL 2.3-4.7 604) Contact Acid Plant Operator Helper ID Keyon FARRELL [facility] (HEMOGRAM ONLY)2020-09-15 04:01:00 Test Item Value Reference Range Interpretation Comments WHITE BLOOD CELL COUNT (BEAKER) 9.5 K/ L 3.5-10.5 (test code = 775) RED BLOOD CELL COUNT (BEAKER) 2.78 M/ L 4.63-6.08 L (test code = 761) HEMOGLOBIN (BEAKER) (test code = 8.6 GM/DL 13.7-17.5 L 410) HEMATOCRIT (BEAKER) (test code = 26.8 % 40.1-51.0 L 411) MEAN CORPUSCULAR VOLUME (BEAKER) 96.4 fL 79.0-92.2 H (test code = 753) MEAN CORPUSCULAR HEMOGLOBIN 30.9 pg 25.7-32.2 (BEAKER) (test code = 751) MEAN CORPUSCULAR HEMOGLOBIN CONC 32.1 GM/DL 32.3-36.5 L (BEAKER) (test code = 752) RED CELL DISTRIBUTION WIDTH 14.8 % 11.6-14.4 H (BEAKER) (test code = 412) PLATELET COUNT (BEAKER) (test 272 K/CU MM 150-450 code = 756) MEAN PLATELET VOLUME (BEAKER) 8.9 fL 9.4-12.4 L (test code = 754) NUCLEATED RED BLOOD CELLS 0 /100 WBC 0-0 (BEAKER) (test code = 413) BLOOD [id number] 04:00:00 Test Item Value Reference Range Interpretation Comments CULTURE (BEAKER) (test No growth in 5 days code = 1095) BLOOD [id number] 04:00:00 Test Item Value Reference Range Interpretation Comments CULTURE (BEAKER) (test No growth in 5 days code = 1095) MR, SPINE, CERVICAL, [id number] 19:36:00Unlisted Reason for Exam - Click Yes and Enter Reason Below->No [facility] 1985 Sex: MFINAL REPORT MR, SPINE, CERVICAL, WITH \\T\\ WITHOUT CONTRAST INDICATION: Spinal cordinjury, follow up TECHNIQUE: Multiplanar, multisequence MR imaging of the cervical spine was performed with and without intravenous contrast. COMPARISON: None. FINDINGS: Straightening of normal cervical lordosis. Vertebral body height is maintained.Mild multilevel disc space height loss, most conspicuous at C3-C4 and C4-G6Mxuweh signal intensity is within normal limits for age.Cervical cord is normalin signal intensityNo acute findings within the paraspinal soft tissues. Findings by level:C2/C3: Mild posterior disc osteophyte complex. There is effacement of the ventral CSF space without significant spinal canal narrowing. Ligamentum flavum thickening posteriorly. No significant foraminal stenosis.C3/C4: Mild broad-based disc osteophyte complex. There is effacement of the ventral CSF space and mild effacement of the dorsal CSF space. Ligamentum flavum thickening contributes to mild canal stenosis. Mild bilateral foraminal stenosis.C4/C5: Posterior disc osteophyte complex. Bilateral facet arthropathy. Ligamentum flavum thickening. Mild spinal canal narrowing. Moderate left foraminal stenosis.C5/C6: Broad-based disc osteophyte complex. Bilateral facet arthropathy. There is effacement of the ventral CSF space and mild contouring of the ventral cervical cord. Ligamentum flavum thickening. No sign ificant spinal canal narrowing. No significant foraminal stenosis.C6/C7: No significant canal or foraminal stenosisC7/T1: No significant canal or foraminal stenosis IMPRESSION: No high-grade canal or foraminal stenosis. Multilevel degenerative changes with mild canal stenosis at C3-C4 detailed above. Signed: [facility]el [facility] Verified Date/Time: 09/14/2020 19:36:44 Reading Location: [address] Reading Room [id number] 05:41:00 Test Item Value Reference Range Interpretation Comments MAGNESIUM (BEAKER) (test code = 1.8 mg/dL 1.6-2.6 627) Contact Acid Plant Operator Helper ID - [id number] 05:41:00 Test Item Value Reference Range Interpretation Comments PHOSPHORUS (BEAKER) (test code = 4.2 mg/dL 2.3-4.7 604) Contact Acid Plant Operator Helper ID - [id number] (HEMOGRAM ONLY)2020-09-14 05:26:00 Test Item Value Reference Range Interpretation Comments WHITE BLOOD CELL COUNT 8.7 K/ L 3.5-10.5 (BEAKER) (test code = 775) RED BLOOD CELL COUNT 2.69 M/ L 4.63-6.08 L (BEAKER) (test code = 761) HEMOGLOBIN (BEAKER) 8.3 GM/DL 13.7-17.5 L (test code = 410) HEMATOCRIT (BEAKER) 26.5 % 40.1-51.0 L (test code = 411) MEAN CORPUSCULAR 98.5 fL 79.0-92.2 H Discordant result VOLUME (BEAKER) (test compar ed to previous code = 753) result. Clinica l correlation req uired MEAN CORPUSCULAR 30.9 pg 25.7-32.2 HEMOGLOBIN (BEAKER) (test code = 751) MEAN CORPUSCULAR 31.3 GM/DL 32.3-36.5 L HEMOGLOBIN CONC (BEAKER) (test code = 752) RED CELL DISTRIBUTION 15.1 % 11.6-14.4 H WIDTH (BEAKER) (test code = 412) PLATELET COUNT 271 K/CU MM 150-450 (BEAKER) (test code = 756) MEAN PLATELET VOLUME 9.1 fL 9.4-12.4 L (BEAKER) (test code = 754) NUCLEATED RED BLOOD 0 /100 WBC 0-0 CELLS (BEAKER) (test code = 413) URINALYSIS W/ REFLEX URINE [id number] 04:21:00 Test Item Value Reference Range Interpretation Comments COLOR (BEAKER) (test code = 470) Yellow CLARITY (BEAKER) (test code = 469) Clear SPECIFIC GRAVITY UA (BEAKER) (test 1.016 1.001-1.035 code = 468) PH UA (BEAKER) (test code = 467) 6.0 5.0-8.0 PROTEIN UA (BEAKER) (test code = 20 mg/dL Negative A 464) GLUCOSE UA (BEAKER) (test code = Negative Negative 365) KETONES UA (BEAKER) (test code = Negative Negative 371) BILIRUBIN UA (BEAKER) (test code = Negative Negative 462) BLOOD UA (BEAKER) (test code = 461) Negative Negative NITRITE UA (BEAKER) (test code = Negative Negative 465) LEUKOCYTE ESTERASE UA (BEAKER) Trace Negative A (test code = 466) UROBILINOGEN UA (BEAKER) (test code 2.0 mg/dL 0.2-1.0 H = 463) RBC UA (BEAKER) (test code = 519) < /HPF WBC UA (BEAKER) (test code = 520) 7 /HPF BACTERIA (BEAKER) (test code = 517) Rare SOURCE(BEAKER) (test code = 2795) Contact Acid Plant Operator Helper ID - [auto]Contact Acid Plant Operator Helper ID - techMR, SPINE, THORACIC, [id number] 14:27:00Unlisted Reason for Exam - Click Yes and Enter Reason Below->No [facility] : 1985 Sex: MFINAL REPORT MR, SPINE, THORACIC, WITH \\T\\ WITHOUT CONTRAST, MR, SPINE, LUMBAR, WITH \\T\\ WITHOUT CONTRAST INDICATION: Spinal cord injury, follow up COMPARISON: CTA chest abdomen pelvisMar2020 TECHNIQUE: Multiplanar, multisequence MR images of the lumbar spine with and without contrast. FINDINGS: THORACIC SPINE: Susceptibility artifact from presumed graft material significantly limits the evaluation of the thoracic cord at multiple thoracic vertebral levels. Within these limitations, there is likely increased T2 hyperintensity of the thoracic cord spanning multiple vertebrallevels including T5-T11. Additionally, due to aforementioned artifact, no meaningful evaluation of the thoracic vertebral marrow is feasible. Alignment is poorly evaluated due to susceptibility artifact from graft. LUMBAR SPINE: 5 nonrib-bearing lumbar- type vertebral bodies are present. Alignment of the lumbar spine is within normal limits. Vertebral body height is maintained. Multilevel disc space height loss is present, most conspicuous at L5-T5Qwtyz terminates at .Cauda equina demonstrates normalappearance.No acute findings in the paraspinal soft tissues. Evaluation of the individual levels demonstrates: L1/L2: No significant canal or foraminal narrowing.L2/L3: No significant canal or foraminal narrowing.L3/L4: No significant canal or foraminal narrowing.L4/L5: No significant canal or foraminal narrowing.L5/S1: Broad-based disc bulge with superimposed broad-based central disc protrusion and annular fissure. This results in moderate subarticular recess stenosis with proximity of disc material to the S1 nerve roots, moderate right and mild left foraminal stenosis. No significant spinal canalnarrowing. IMPRESSION:Susceptibility artifact from presumed graft material significantly limits the evaluation of the thoracic cord at multiple thoracic vertebral levels. Within these limitations, there is likely increased T2 hyperintensity of the thoracic cord spanning multiple vertebral levels including T5-T11. No discernible superimposed enhancement. As previously stated, evaluation is suboptimal due to artifact. Multilevel degenerative changes of the lumbar spine, most prominent at L5-S1 described above. For details regarding evaluation of aortic dissection, please refer to dedicated CTA chest abdomen pelvis September 10, 2020 Signed: Glo Patel MDReport Verified Date/Time: 09/13/2020 14:27:57 Reading Location: [facility] C0[facility] Neuro Reading Room MR, SPINE, LUMBAR, [id number] 14:27:00Unlisted Reason for Exam - Click Yes and Enter Reason Below->No [facility] : 1985 Sex: MFINAL REPORT MR, SPINE, THORACIC, WITH \\T\\ WITHOUT CONTRAST, MR, SPINE, LUMBAR, WITH \\T\\ WITHOUT CONTRAST INDICATION: Spinal cord injury, follow up COMPARISON: CTA chest abdomen pelvisMar 2020 TECHNIQUE: Multiplanar, multisequence MR images of the lumbar spine with and without contrast. FINDINGS: THORACIC SPINE: Susceptibility artifact from presumed graft material significantly limits the evaluation of the thoracic cord at multiple thoracic vertebral levels. Within these limitations, there is likely increased T2 hyperintensity of the thoracic cord spanning multiple vertebrallevels including T5-T11. Additionally, due to aforementioned artifact, no meaningful evaluation of the thoracic vertebral marrow is feasible. Alignment is poorly evaluated due to susceptibility artifact from graft. LUMBAR SPINE: 5 nonrib-bearing lumbar- type vertebral bodies are present. Alignment of the lumbar spine is within normal limits. Vertebral body height is maintained. Multilevel disc space height loss is present, most conspicuous at L5-C9Lisgt terminates at .Cauda equina demonstrates normalappearance.No acute findings in the paraspinal soft tissues. Evaluation of the individual levels demonstrates: L1/L2: No significant canal or foraminal narrowing.L2/L3: No significant canal or foraminal narrowing.L3/L4: No significant canal or foraminal narrowing.L4/L5: No significant canal or foraminal narrowing.L5/S1: Broad-based disc bulge with superimposed broad-based central disc protrusion and annular fissure. This results in moderate subarticular recess stenosis with proximity of disc material to the S1 nerve roots, moderate right and mild left foraminal stenosis. No significant spinal canalnarrowing. IMPRESSION:Susceptibility artifact from presumed graft material significantly limits the evaluation of the thoracic cord at multiple thoracic vertebral levels. Within these limitations, there is likely increased T2 hyperintensity of the thoracic cord spanning multiple vertebral levels including T5-T11. No discernible superimposed enhancement. As previously stated, evaluation is suboptimal due to artifact. Multilevel degenerative changes of the lumbar spine, most prominent at L5-S1 described above. For details regarding evaluation of aortic dissection, please refer to dedicated CTA chest abdomen pelvis September 10, 2020 Signed: Glo [place] Verified Date/Time: 09/13/2020 14:27:57 Reading Location: [facility] C013V Neuro Reading Room CT, BRAIN, WITHOUT [id number] 11:49:00Unlisted Reason for Exam - Click Yes and Enter Reason Below->No [facility] : 1985 Sex: MFINAL REPORT CT, BRAIN, WITHOUT CONTRAST CLINICAL INDICATION: Headache, acute, normal neuro examHead trauma, minor, normal mental status (Age 19-64y) COMPARISON: September 10, 2020 TECHNIQUE: Noncontrast axial CT imaging of the brain and skull. DOSE REDUCTION: Dose modulation, iterative reconstruction, and/or weight-based adjustment of the mA/kV was utilized to reduce the radiation dose t o as low as reasonably achievable. FINDINGS:No intracranial hemorrhage, midline shift or mass effect. Midline structures are normally developed. No hydrocephalus. Orbits are within normal limits. No obstructive paranasal sinus disease. IMPRESSION: No acute intracranial findings If there is persistent c linical concern for intracranial pathology, MR examination is recommended for further characterization. Signed: Glo [place] Verified Date/Time: 09/13/2020 11:49:24 Reading Location: [address] Neuro Reading Room C METABOLIC [id number] 06:37:00 Test Item Value Reference Range Interpretation Comments SODIUM (BEAKER) 133 meq/L 136-145 L (test code = 381) POTASSIUM (BEAKER) 4.3 meq/L 3.5-5.1 (test code = 379) CHLORIDE (BEAKER) 103 meq/L 98-107 (test code = 382) CO2 (BEAKER) (test 20 meq/L 22-29 L code = 355) BLOOD UREA NITROGEN 16 mg/dL 7-21 (BEAKER) (test code = 354) CREATININE (BEAKER) 0.73 mg/dL 0.57-1.25 (test code = 358) GLUCOSE RANDOM 87 mg/dL 70-105 (BEAKER) (test code = 652) CALCIUM (BEAKER) 8.6 mg/dL 8.4-10.2 (test code = 697) EGFR (BEAKER) (test 149 mL/min/1.73 ESTIM ATED GFR IS code = 1092) sq m NOT ACCURATE CREATININE CLEARANCE IN PREDICTING GLOMERULAR FILTRATION RATE . ESTIMATED GFR I S NOT APPLICABLE FOR DIALYSIS PATIEN TS. Contact Acid Plant Operator Helper ID - [id number] 06:37:00 Test Item Value Reference Range Interpretation Comments MAGNESIUM (BEAKER) (test code = 1.8 mg/dL 1.6-2.6 627) Contact Acid Plant Operator Helper ID - [id number] 06:37:00 Test Item Value Reference Range Interpretation Comments PHOSPHORUS (BEAKER) (test code = 4.4 mg/dL 2.3-4.7 604) Contact Acid Plant Operator Helper ID - [id number] (HEMOGRAM ONLY)2020-09-13 05:03:00 Test Item Value Reference Range Interpretation Comments WHITE BLOOD CELL COUNT (BEAKER) 6.9 K/ L 3.5-10.5 (test code = 775) RED BLOOD CELL COUNT (BEAKER) 2.62 M/ L 4.63-6.08 L (test code = 761) HEMOGLOBIN (BEAKER) (test code = 8.1 GM/DL 13.7-17.5 L 410) HEMATOCRIT (BEAKER) (test code = 24.7 % 40.1-51.0 L 411) MEAN CORPUSCULAR VOLUME (BEAKER) 94.3 fL 79.0-92.2 H (test code = 753) MEAN CORPUSCULAR HEMOGLOBIN 30.9 pg 25.7-32.2 (BEAKER) (test code = 751) MEAN CORPUSCULAR HEMOGLOBIN CONC 32.8 GM/DL 32.3-36.5 (BEAKER) (test code = 752) RED CELL DISTRIBUTION WIDTH 15.2 % 11.6-14.4 H (BEAKER) (test code = 412) PLATELET COUNT (BEAKER) (test 254 K/CU MM 150-450 code = 756) MEAN PLATELET VOLUME (BEAKER) 9.3 fL 9.4-12.4 L (test code = 754) NUCLEATED RED BLOOD CELLS 0 /100 WBC 0-0 (BEAKER) (test code = 413) BASIC METABOLIC [id number] 05:59:00 Test Item Value Reference Range Interpretation Comments SODIUM (BEAKER) 130 meq/L 136-145 L (test code = 381) POTASSIUM (BEAKER) 4.3 meq/L 3.5-5.1 (test code = 379) CHLORIDE (BEAKER) 103 meq/L 98-107 (test code = 382) CO2 (BEAKER) (test 19 meq/L 22-29 L code = 355) BLOOD UREA NITROGEN 16 mg/dL 7-21 (BEAKER) (test code = 354) CREATININE (BEAKER) 0.70 mg/dL 0.57-1.25 (test code = 358) GLUCOSE RANDOM 84 mg/dL 70-105 (BEAKER) (test code = 652) CALCIUM (BEAKER) 8.1 mg/dL 8.4-10.2 L (test code = 697) EGFR (BEAKER) (test 156 mL/min/1.73 ESTIM ATED GFR IS code = 1092) sq m NOT ACCURATE CREATININE CLEARANCE IN PREDICTING GLOMERULAR FILTRATION RATE . ESTIMATED GFR I S NOT APPLICABLE FOR DIALYSIS PATIEN TS. Contact Acid Plant Operator Helper ID - JAMI [id number] 05:59:00 Test Item Value Reference Range Interpretation Comments MAGNESIUM (BEAKER) (test code = 1.9 mg/dL 1.6-2.6 627) Contact Acid Plant Operator Helper ID - JAMI [id number] 05:59:00 Test Item Value Reference Range Interpretation Comments PHOSPHORUS (BEAKER) (test code = 3.9 mg/dL 2.3-4.7 604) Contact Acid Plant Operator Helper ID - JAMI MCBC (HEMOGRAM ONLY)2020-09-12 05:07:00 Test Item Value Reference Range Interpretation Comments WHITE BLOOD CELL COUNT (BEAKER) 8.4 K/ L 3.5-10.5 (test code = 775) RED BLOOD CELL COUNT (BEAKER) 2.65 M/ L 4.63-6.08 L (test code = 761) HEMOGLOBIN (BEAKER) (test code = 8.2 GM/DL 13.7-17.5 L 410) HEMATOCRIT (BEAKER) (test code = 25.2 % 40.1-51.0 L 411) MEAN CORPUSCULAR VOLUME (BEAKER) 95.1 fL 79.0-92.2 H (test code = 753) MEAN CORPUSCULAR HEMOGLOBIN 30.9 pg 25.7-32.2 (BEAKER) (test code = 751) MEAN CORPUSCULAR HEMOGLOBIN CONC 32.5 GM/DL 32.3-36.5 (BEAKER) (test code = 752) RED CELL DISTRIBUTION WIDTH 15.7 % 11.6-14.4 H (BEAKER) (test code = 412) PLATELET COUNT (BEAKER) (test 222 K/CU MM 150-450 code = 756) MEAN PLATELET VOLUME (BEAKER) 9.3 fL 9.4-12.4 L (test code = 754) NUCLEATED RED BLOOD CELLS 0 /100 WBC 0-0 (BEAKER) (test code = 413) CTA, CHEST, ABDOMEN - PELVIS, FOR [id number] 12:28:00Please prepare 3D reconstructionReason for exam:->TEVAR planning [facility] : 1985 Sex: MAddendum BeginsREPORT STATUS:A NONVASCULAR FINDINGS: LUNGS AND AIRWAYS: Central airways are patent. There is bibasilar atelectasis. There are few calcified granulomas in the right lung..PLEURA: The pleural spaces are clear.HEART AND MEDIASTINUM: The visualized thyroid gland is normal.No significant mediastinal, hilar, or axillary lymphadenopathy. The heart and pericardium are withinnormal limits. HEPATOBILIARY: No focal hepatic lesions. Prior cholecystectomy.. No biliary ductal dilatation.SPLEEN: No splenomegaly.PANCREAS: No focal masses or ductal dilatation. ADRENALS: No adrenalnodules.KIDNEYS/URETERS: No hydronephrosis, stones, or solid mass lesions.PELVIC ORGANS/BLADDER: Zuñiga catheter in the decompressed urinary bladder.. PERITONEUM/RETROPERITONEUM: No free air or fluid.LYMPH NODES: No lymphadenopathy. GI TRACT: No distention or wall thickening. Appendix is normal. BONES AND SOFT TISSUES: Within the posterior soft tissues overlying the coccyx is suggestion of a decubitusulcer to the left of midline. Correlate with physical exam findings. Degenerative changes in the spine. No suspicious osseous lesion.. Signed: Jeny Godinez MDR[facility]ort Verified Date/Time: 09/11/2020 12:28:[address] angiography of the thoracoabdominal aorta and pelvic arteries, 10-Sep-20 INDICATION: This is 89 years old male, with aortic disease, presents for preprocedure assessment. TECHNIQUE: Spiral acquisition before and during intravenous contrast administration using a Siemens CT scanner. Images were obtained before and during the dynamic passage of intravenous contrast material. Multi-planar 3-D volume-rendering reconstruction was performed using an independent workstation interactively by the interpreting physician as well as the 3-D specialist for optimal visualisation of the thoracoabdominal aorta, the pelvic arteries as well as its proximal branches. Please refer to the contrast sheet scanned in the EPIC system for the amount and routeof contrast given. This exam was performed according to our departmental dose-optimisation programme, which includes automated exposure control, adjustment of the mA and/or kV according to patient sizeand/or use of iterative reconstruction technique. Dose modulation, iterative reconstruction, and/or weight based adjustment of the mA/kV was utilized to reduce the radiation dose to as low as reasonably achievable. ECG gating was utilized. FINDINGS: VASCULAR:- The central pulmonary artery is prominentat its is larger than the corresponding mid descending thoracic aorta. The cardiac chambers demonstrate normal atrioventricular and ventriculoarterial concordance, and systemic and pulmonary venous return. In mid diastole, the left ventricle is still normal in size. No mitral annular calcification is seen. No aortic valvular calcification is identified. Coronary artery origins are normal. No obvious coronary artery calcification is seen. The aortic root, ascending thoracic aorta, and the transverse arch is jena. Arch vessel branching pattern is normal and the visualised arch vessels are seen to be widely patent proximally. Endostent is identified, starting at the aortic isthmus, through the entire descending thoracic aorta, extending into the abdominal aorta, and terminates above the aortic bifurcation, inferior to the takeoff of the ABIMAEL. Note, limited contrast enhancement is identified at theendostent in the abdominal level, could be due to timing issue, especially when ECG gating was employed. Last study in this institution demonstrate the true lumen is well enhanced by contrast in 2020, where endostent is placed. In the abdominal aorta, in this current examination the false lumen is enhanced by contrast, and again similar finding is seen in prior dictation. As seen in prior examination, residual dissection flap is identified, located distal to the endostent, extends into the proximal/mid left common iliac artery, as well as into the entire right common iliac artery and a stent is identified in the right external iliac artery. The right internal iliac artery appears to connect to thefalse lumen, and is patent, and may explain enhancement of the false lumen. In addition, once again of note, there could be tiny type II endoleak, as a result of the lumbar arteries, for example at image 246, and at image 232 in the left. Limited comment can be made regarding the coeliac axis and SMA,likely due to suboptimal timing. The right renal artery arising the false lumen of the dissection and is patent. In prior examination, the dissection flap extends into the takeoff of the left renal artery. Assessment of the left renal artery and this examination is limited. The external iliac and the common femoral arteries appears to be patent, however, enhancement is suboptimal. As described above,a vascular stent is identified in the right external iliac artery. Arch vessel branching pattern is normal and the visualised arch vessels are seen to be widely patent proximally. Quantitaive dimensions of the aorta are as follows: 3.5 x 3.3 cm at the sinuses of Valsalva (the sino-tubular junction is preserved); 3.0 cm at the proximal ascending thoracic aorta; 3.2 cm at the mid ascending aorta; 3.3 cm at the distal ascending aorta; 2.8 cm at the mid transverse arch; 3.2 x 3.2 cm at the proximal descending aorta; 2.9 x 2.9 cm at the mid descending aorta; 2.8 cm at the diaphragmatic hiatus. In the abdomen, the aorta measures 2.8 x 2.4 cm at the mesenteric segment; 2.7 x 2.1 cm at the renal segment,;and 2.1 cm at the aortic bifurcation. NON-VASCULAR: The nonvascular findings will be dictated separately. CONCLUSIONS: 1. Comparison was made in prior examination in 2019. The aortic root and ascendingthoracic aorta and transverse arch is unremarkable. Endostent is placed, at the aortic isthmus through the entire descending thoracic aorta into the abdominal aorta and terminates distal to the takeoffof the ABIMAEL. The endostent is well-positioned. There is likely a timing issue where enhancement of the true lumen of the descending thoracic aorta and the abdominal aorta is suboptimal. Some contrast isseen in the false lumen of the abdominal aorta, presumably could be due to retrograde filling through some lumbar arteries as described above, as well as through the right internal iliac artery. Due tosuboptimal enhancement of the true lumen of the stent of the abdominal aorta, assessment of the mesenteric arteries are somewhat limited. 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 Enhancement of the pelvic arteries are suboptimal. When compared to prior examination [id number], whilst no significant interval change is identified except for suboptimal enhancement of the true lumen of the abdominal aorta with endostent is located, there is some mild interval increase in size of the abdominal aorta though the abdominal aorta is still lessthan 3 cm in diameter. Quantitative dimensions of the thoracoabdominal aorta as described above. Please see snapshot for details. 2. Normal coronary artery origins. No obvious coronary artery calcium is appreciated. 3. The nonvascular findings will be dictated separately by the Master Esthetician Radiologist.Signed: Bouchra Jorgenseneport Verified Date/Time: 09/10/2020 15:16:54 BASIC METABOLIC [id number] 04:35:00 Test Item Value Reference Range Interpretation Comments SODIUM (BEAKER) 135 meq/L 136-145 L (test code = 381) POTASSIUM (BEAKER) 4.1 meq/L 3.5-5.1 (test code = 379) CHLORIDE (BEAKER) 107 meq/L 98-107 (test code = 382) CO2 (BEAKER) (test 19 meq/L 22-29 L code = 355) BLOOD UREA NITROGEN 25 mg/dL 7-21 H (BEAKER) (test code = 354) CREATININE (BEAKER) 0.77 mg/dL 0.57-1.25 (test code = 358) GLUCOSE RANDOM 93 mg/dL 70-105 (BEAKER) (test code = 652) CALCIUM (BEAKER) 8.2 mg/dL 8.4-10.2 L (test code = 697) EGFR (BEAKER) (test 140 mL/min/1.73 ESTIM ATED GFR IS code = 1092) sq m NOT ACCURATE CREATININE CLEARANCE IN PREDICTING GLOMERULAR FILTRATION RATE . ESTIMATED GFR I S NOT APPLICABLE FOR DIALYSIS PATIEN TS. Contact Acid Plant Operator Helper ID - PIAYA [id number] 04:35:00 Test Item Value Reference Range Interpretation Comments MAGNESIUM (BEAKER) (test code = 1.6 mg/dL 1.6-2.6 627) Contact Acid Plant Operator Helper ID - PIAYA LTROPONIN [id number] 04:30:00 Test Item Value Reference Range Interpretation Comments TROPONIN I (BEAKER) (test code = 0.03 ng/mL 0.00-0.03 397) Troponin I (TnI) levels must be interpreted in the context of the presenting symptoms and the clinical findings. Elevated TnI levels indicate myocardial damage, but are not specific for ischemic heart disease. Elevated TnI levels are seen in patients with other cardiac conditions (including myocarditis and congestive heart failure), and slight TnI elevations occur in patients with other conditions, including sepsis, renal failure, acidosis, acute neurological disease, and persistent tachyarrhythmia.Contact Acid Plant Operator Helper ID - PIAYA LLactic Acid, [id number] 04:07:00 Test Item Value Reference Range Interpretation Comments Lactate, Art (test code = 0.4 mmol/L 0.5-2.2 L 2874) CAROLINA (test code = CAROLINA) Contact Acid Plant Operator Helper ID - DB Lab Interpretation (test Abnormal code = 42021-3) [facility] [id number] 04:07:00 Test Item Value Reference Range Interpretation Comments LACTATE BLOOD ARTERIAL (2) 0.4 mmol/L 0.5-2.2 L (BEAKER) (test code = 2874) Contact Acid Plant Operator Helper ID - DBCBC (HEMOGRAM ONLY)2020-09-11 03:51:00 Test Item Value Reference Range Interpretation Comments WHITE BLOOD CELL COUNT (BEAKER) 8.3 K/ L 3.5-10.5 (test code = 775) RED BLOOD CELL COUNT (BEAKER) 2.67 M/ L 4.63-6.08 L (test code = 761) HEMOGLOBIN (BEAKER) (test code = 8.3 GM/DL 13.7-17.5 L 410) HEMATOCRIT (BEAKER) (test code = 25.1 % 40.1-51.0 L 411) MEAN CORPUSCULAR VOLUME (BEAKER) 94.0 fL 79.0-92.2 H (test code = 753) MEAN CORPUSCULAR HEMOGLOBIN 31.1 pg 25.7-32.2 (BEAKER) (test code = 751) MEAN CORPUSCULAR HEMOGLOBIN CONC 33.1 GM/DL 32.3-36.5 (BEAKER) (test code = 752) RED CELL DISTRIBUTION WIDTH 15.9 % 11.6-14.4 H (BEAKER) (test code = 412) PLATELET COUNT (BEAKER) (test 200 K/CU MM 150-450 code = 756) MEAN PLATELET VOLUME (BEAKER) 9.4 fL 9.4-12.4 (test code = 754) NUCLEATED RED BLOOD CELLS 0 /100 WBC 0-0 (BEAKER) (test code = 413) BASIC METABOLIC [id number] 15:59:00 Test Item Value Reference Range Interpretation Comments SODIUM (BEAKER) 134 meq/L 136-145 L (test code = 381) POTASSIUM (BEAKER) 3.8 meq/L 3.5-5.1 (test code = 379) CHLORIDE (BEAKER) 106 meq/L 98-107 (test code = 382) CO2 (BEAKER) (test 19 meq/L 22-29 L code = 355) BLOOD UREA NITROGEN 24 mg/dL 7-21 H (BEAKER) (test code = 354) CREATININE (BEAKER) 0.76 mg/dL 0.57-1.25 (test code = 358) GLUCOSE RANDOM 117 mg/dL 70-105 H (BEAKER) (test code = 652) CALCIUM (BEAKER) 8.3 mg/dL 8.4-10.2 L (test code = 697) EGFR (BEAKER) (test 142 mL/min/1.73 ESTIM ATED GFR IS code = 1092) sq m NOT ACCURATE CREATININE CLEARANCE IN PREDICTING GLOMERULAR FILTRATION RATE . ESTIMATED GFR I S NOT APPLICABLE FOR DIALYSIS PATIEN TS. Contact Acid Plant Operator Helper ID - DBTROPONIFili [id number] 10:30:00 Test Item Value Reference Range Interpretation Comments TROPONIN I (BEAKER) (test code = 0.04 ng/mL 0.00-0.03 H 397) Troponin I (TnI) levels must be interpreted in the context of the presenting symptoms and the clinical findings. Elevated TnI levels indicate myocardial damage, but are not specific for ischemic heart disease. Elevated TnI levels are seen in patients with other cardiac conditions (including myocarditis and congestive heart failure), and slight TnI elevations occur in patients with other conditions, including sepsis, renal failure, acidosis, acute neurological disease, and persistent tachyarrhythmia.Contact Acid Plant Operator Helper ID - PIAYA LSARS-COV2/RT-PCR ([facility])2020-09-10 07:27:00 Test Item Value Reference Range Interpretation Comments SARS-COV2/RT-PCR (test Negative Not Detected, Negative, code = 2424693) See external report for linked test SARS-COV-2 PERFORMING LAB [facility] ION (test code = 5683800) Negative result for this test determines that SARS-CoV-2 RNA was not present in the specimen above the Limit of Detection (LOD). However, Negative results do not preclude SARS-CoV-2 infection and should not be used as the sole basis for treatment or patient management decisions. Negative results must be combined with clinical observations, patient history, and epidemiological information. A false negative result may occur if a specimen is improperly collected, transported or handled. A false negative result should be considered if patient's recent exposures or clinical presentation indicate that COVID-19 (SARS-CoV-2) is likely and diagnostic tests for other causes of illness are negative. Re-testing should be considered in cases of suspected false negatives.The limit of detection for this assay is 800 copies/mL.This SARS CoV-2 test is a real-time RT-PCR test intended for the qualitative detection of nucleic acid from SARS-CoV-2 in a nasopharyngeal swab specimen collected from individuals suspected of COVID-19 by their healthcare provider.This test has not been Food and Drug Administration (FDA) cleared or approved. This is a modified version of an approved Emergency Use Authorization (EUA) and is in the process of review by the FDA. Once authorized by the FDA, the issued EUA will be effective until the declaration that circumstances exist justifying the authorization of the emergency use ofin vitro diagnostic tests for detection and/or diagnosis of COVID-19 is terminated under Section 564(b)(2) of the Act or the EUA is revoked under Section 564(g) of the Act.Fact Sheet for Healthcare Prov iders:https://www.[employer]/sites/default/files/product/documents/Fact_Sheet_HC _Mvevalzcv_Tnzx_XLYC-AbP-8.pdfFact Sheet for Healthcare Patients:https://www.[employer]/sites/default/files/product/docume nts/Cqfy_Knoyk_Gbmnsryx_Fvup_CPLN-OnN-3.pdfPerforming Laboratory:[facility], [place] [address]THYETDTF [id number] 04:27:00 Test Item Value Reference Range Interpretation Comments TROPONIN I (BEAKER) (test code = 0.04 ng/mL 0.00-0.03 H 397) Troponin I (TnI) levels must be interpreted in the context of the presenting symptoms and the clinical findings. Elevated TnI levels indicate myocardial damage, but are not specific for ischemic heart disease. Elevated TnI levels are seen in patients with other cardiac conditions (including myocarditis and congestive heart failure), and slight TnI elevations occur in patients with other conditions, including sepsis, renal failure, acidosis, acute neurological disease, and persistent tachyarrhythmia.Contact Acid Plant Operator Helper ID - JAMI MLactic acid, venous [id number] 04:18:00 Test Item Value Reference Range Interpretation Comments Lactate, Venous (test 5.38 mmol/L 0.50-2.20 HH Specim en code = 2872) moderately hemolyzed CAROLINA (test code = CAROLINA) Contact Acid Plant Operator Helper ID - JAMI M Lab Interpretation Abnormal (test code = 84233-3) [facility], [id number] 04:18:00 Test Item Value Reference Range Interpretation Comments LACTATE BLOOD VENOUS 5.38 mmol/L 0.50-2.20 HH Specime n moderately (2) (BEAKER) (test hemolyzed code = 2872) Contact Acid Plant Operator Helper ID - JAMI MUrinalysis w/[id number] 03:22:00 Test Item Value Reference Range Interpretation Comments Color, UA (test code Yellow = 5778-6) Clarity, UA (test Hazy code = 5767-9) Specific [place], UA 1.021 1.001-1.035 (test code = 5811-5) pH, UA (test code = 6.5 5.0-8.0 5803-2) Protein, UA (test 50 mg/dL Negative A code = 12018-7) Glucose, UA (test Negative Negative code = 365) Ketones, UA (test Negative Negative code = 2514-8) Bilirubin, UA (test Negative Negative code = 28212-8) Blood, UA (test code Negative Negative = 52145-6) Nitrite, UA (test Negative Negative code = 5802-4) Leukocytes, UA (test Moderate Negative A code = 5799-2) Urobilinogen, UA 2.0 mg/dL 0.2-1.0 H (test code = 16461-1) RBC, UA (test code = 2 See_Comment [Autom ated 56382-4) message] The system which generated this result transmitted reference range : /HPF. The reference range was not used to interpret this result as normal/abnormal . WBC, UA (test code = 30 See_Comment [Autom ated 5821-4) message] The system which generated this result transmitted reference range : /HPF. The reference range was not used to interpret this result as normal/abnormal . Bacteria, UA (test Few code = 85284-8) Amorphous Crystals Occasional (test code = 68693-2) Specimen Source (test code = 2795) CAROLINA (test code = CAROLINA) Contact Acid Plant Operator Helper ID - [auto]Contact Acid Plant Operator Helper ID - tech Lab Interpretation Abnormal (test code = 35446-8) [facility]/ [id number] 03:22:00 Test Item Value Reference Range Interpretation Comments COLOR (BEAKER) (test code = 470) Yellow CLARITY (BEAKER) (test code = 469) Hazy SPECIFIC GRAVITY UA (BEAKER) (test 1.021 1.001-1.035 code = 468) PH UA (BEAKER) (test code = 467) 6.5 5.0-8.0 PROTEIN UA (BEAKER) (test code = 50 mg/dL Negative A 464) GLUCOSE UA (BEAKER) (test code = Negative Negative 365) KETONES UA (BEAKER) (test code = Negative Negative 371) BILIRUBIN UA (BEAKER) (test code = Negative Negative 462) BLOOD UA (BEAKER) (test code = Negative Negative 461) NITRITE UA (BEAKER) (test code = Negative Negative 465) LEUKOCYTE ESTERASE UA (BEAKER) Moderate Negative A (test code = 466) UROBILINOGEN UA (BEAKER) (test 2.0 mg/dL 0.2-1.0 H code = 463) RBC UA (BEAKER) (test code = 519) 2 /HPF WBC UA (BEAKER) (test code = 520) 30 /HPF BACTERIA (BEAKER) (test code = Few 517) AMORPHOUS CRYSTALS (BEAKER) (test Occasional code = 1584) SOURCE(BEAKER) (test code = 2795) Contact Acid Plant Operator Helper ID - [auto]Contact Acid Plant Operator Helper ID - techTROPONIN [id number] 02:32:00 Test Item Value Reference Range Interpretation Comments TROPONIN I (BEAKER) (test code = 0.04 ng/mL 0.00-0.03 H 397) Troponin I (TnI) levels must be interpreted in the context of the presenting symptoms and the clinical findings. Elevated TnI levels indicate myocardial damage, but are not specific for ischemic heart disease. Elevated TnI levels are seen in patients with other cardiac conditions (including myocarditis and congestive heart failure), and slight TnI elevations occur in patients with other conditions, including sepsis, renal failure, acidosis, acute neurological disease, and persistent tachyarrhythmia.Contact Acid Plant Operator Helper ID - PIAYA LComprehensive metabolic [id number] 02:26:00 Test Item Value Reference Range Interpretation Comments Protein, Total (test 8.9 See_Comment H Specime n slightly code = 2885-2) hemolyzed [Automated message] The system which generated this result transmit kar reference range : 6.0 - 8.3 gm/dL . The reference range was not u sed to interpret th is result as normal/abnormal . Albumin (test code = 3.5 g/dL 3.5-5.0 Specime n slightly 61616-3) hemolyzed Alkaline Phosphatase 86 U/L 40-150 (test code = 6768-6) Total Bilirubin (test 0.5 mg/dL 0.2-1.2 Specim en slightly code = 1975-2) hemolyzed Sodium (test code = 134 meq/L 136-145 L 2951-2) Potassium (test code 4.4 meq/L 3.5-5.1 Specime n slightly = 2823-3) hemolyzed Chloride (test code = 101 meq/L 98-107 2075-0) CO2 (test code = 19 meq/L 22-29 L 8-9) BUN (test code = 33 mg/dL 7-21 H 3094-0) Creatinine (test code 0.83 mg/dL 0.57-1.25 Specim en slightly = 2160-0) hemolyzed Glucose (test code = 57 mg/dL 70-105 L 2345-7) Calcium (test code = 8.9 mg/dL 8.4-10.2 07566-0) AST (test code = 17 U/L 5-34 Specimen sl ightly 1920-8) hemolyzed ALT (test code = 15 U/L 6-55 Specimen sl ightly 1742-6) hemolyzed EGFR (test code = 129 mL/min/1.73 [place] [address]-5) NOT ACCURATE CREATININE CLEARANCE IN PREDICTING GLOMERULAR FILTRATION RATE . ESTIMATED GFR I S NOT APPLICABLE FOR DIALYSIS PATIEN TS. FIGUEROA (test code = CAROLINA) Contact Acid Plant Operator Helper ID - PIAYA L Lab Interpretation Abnormal (test code = 04120-3) [facility] [id number] 02:26:00 Test Item Value Reference Range Interpretation Comments TOTAL PROTEIN 8.9 gm/dL 6.0-8.3 H Specimen sligh tly (BEAKER) (test code = hemoly zed 770) ALBUMIN (BEAKER) 3.5 g/dL 3.5-5.0 Specimen sl ightly (test code = 1145) hemolyzed ALKALINE PHOSPHATASE 86 U/L 40-150 (BEAKER) (test code = 346) BILIRUBIN TOTAL 0.5 mg/dL 0.2-1.2 Specimen sli ghtly (BEAKER) (test code = hemoly zed 377) SODIUM (BEAKER) (test 134 meq/L 136-145 L code = 381) POTASSIUM (BEAKER) 4.4 meq/L 3.5-5.1 Specimen slightly (test code = 379) hemolyzed CHLORIDE (BEAKER) 101 meq/L 98-107 (test code = 382) CO2 (BEAKER) (test 19 meq/L 22-29 L code = 355) BLOOD UREA NITROGEN 33 mg/dL 7-21 H (BEAKER) (test code = 354) CREATININE (BEAKER) 0.83 mg/dL 0.57-1.25 Specimen slightly (test code = 358) hemolyzed GLUCOSE RANDOM 57 mg/dL 70-105 L (BEAKER) (test code = 652) CALCIUM (BEAKER) 8.9 mg/dL 8.4-10.2 (test code = 697) AST (SGOT) (BEAKER) 17 U/L 5-34 Specimen slightly (test code = 353) hemolyzed ALT (SGPT) (BEAKER) 15 U/L 6-55 Specimen slightly (test code = 347) hemolyzed EGFR (BEAKER) (test 129 ESTIMATE D GFR IS code = 1092) mL/min/1.73 sq NOT ACCURA TE m CREATININE CLEARANCE IN PREDICTING GLOMERULAR FILTRATION RATE . ESTIMATED GFR I S NOT APPLICABLE FOR DIALYSIS PATIEN TS. Contact Acid Plant Operator Helper ID - PIAYA LProthrombin time/[id number] 02:24:00 Test Item Value Reference Interpretation Comments Range Protime (test code = 14.0 See_Comment [Autom ated 5902-2) message] The system which generated this result transmitted reference range : 11.9 - 14.2 seconds. The reference range was not used to interpret this result as normal/abnormal . INR (test code = 1.11 See_Comment [Automated 9091-6) message] The system which generated this result transmitted reference range : <=5.90. The reference range was not used to interpret this result as normal/abnormal . CAROLINA (test code = Effective 11/21/2018: CAROLINA) PT Reference Range ChangeNew: 11.9-14.2 Previous: 11.7-14.7 RECOMMENDED COUMADIN/WARFARIN INR THERAPY RANGESSTANDARD DOSE: 2.0-3.0 Includes: PROPHYLAXIS for venous thrombosis, systemic embolization; TREATMENT for venous thrombosis and/or pulmonary embolus.HIGH RISK: Target INR is 2.5-3.5 for patients wiht mechanical heart valves. Lab Interpretation Normal (test code = 25225-4) [id number] 02:24:00 Test Item Value Reference Range Interpretation Comments PTT (test code = 40655-0) 28.8 See_Comment [ Automated message] The system [employer] generated this result transmitted ref erence range: 22.5 - 3 6.0 seconds. The re ference range was not u sed to interpret this result as normal/abnor mal. Lab Interpretation (test Normal code = 99962-8) [facility] HospitalPROTHROMBIN TIME/[id number] 02:24:00 Test Item Value Reference Range Interpretation Comments PROTIME (BEAKER) 14.0 seconds 11.9-14.2 (test code = 759) INR (BEAKER) (test 1.11 See_Comment [Automat ed message] code = 370) The system [employer] generated this result transmitted ref erence range: <=5.90. The reference range was not used to int erpret this result as normal/abnormal . Effective 11/21/2018: PT Reference Range ChangeNew: 11.9-14.2 Previous: 11.7- 14.7RECOMMENDED COUMADIN/WARFARIN INR THERAPY RANGESSTANDARD DOSE: 2.0-3.0 Includes: PROPHYLAXIS for venous thrombosis, systemic embolization; TREATMENT for venous thrombosis and/or pulmonary embolus.HIGH RISK: Target INR is 2.5-3.5 for patients wiht mechanical heart valves.LACTIC ACID, [id number] 02:24:00 Test Item Value Reference Range Interpretation Comments LACTATE BLOOD VENOUS 6.10 mmol/L 0.50-2.20 HH Specime n slightly (2) (BEAKER) (test hemolyzed code = 2872) Contact Acid Plant Operator Helper ID - PIAYA [id number] 02:24:00 Test Item Value Reference Range Interpretation Comments PARTIAL THROMBOPLASTIN TIME 28.8 seconds 22.5-36.0 (BEAKER) (test code = 760) CBC W/PLT COUNT & AUTO [id number] 02:15:00 Test Item Value Reference Range Interpretation Comments WHITE BLOOD CELL COUNT (BEAKER) 9.4 K/ L 3.5-10.5 (test code = 775) RED BLOOD CELL COUNT (BEAKER) 3.56 M/ L 4.63-6.08 L (test code = 761) HEMOGLOBIN (BEAKER) (test code = 10.9 GM/DL 13.7-17.5 L 410) HEMATOCRIT (BEAKER) (test code = 34.7 % 40.1-51.0 L 411) MEAN CORPUSCULAR VOLUME (BEAKER) 97.5 fL 79.0-92.2 H (test code = 753) MEAN CORPUSCULAR HEMOGLOBIN 30.6 pg 25.7-32.2 (BEAKER) (test code = 751) MEAN CORPUSCULAR HEMOGLOBIN CONC 31.4 GM/DL 32.3-36.5 L (BEAKER) (test code = 752) RED CELL DISTRIBUTION WIDTH 16.5 % 11.6-14.4 H (BEAKER) (test code = 412) PLATELET COUNT (BEAKER) (test 251 K/CU MM 150-450 code = 756) MEAN PLATELET VOLUME (BEAKER) 9.3 fL 9.4-12.4 L (test code = 754) NUCLEATED RED BLOOD CELLS 0 /100 WBC 0-0 (BEAKER) (test code = 413) NEUTROPHILS RELATIVE PERCENT 81 % (BEAKER) (test code = 429) LYMPHOCYTES RELATIVE PERCENT 10 % (BEAKER) (test code = 430) MONOCYTES RELATIVE PERCENT 8 % (BEAKER) (test code = 431) EOSINOPHILS RELATIVE PERCENT 1 % (BEAKER) (test code = 432) BASOPHILS RELATIVE PERCENT 0 % (BEAKER) (test code = 437) NEUTROPHILS ABSOLUTE COUNT 7.57 K/ L 1.78-5.38 H (BEAKER) (test code = 670) LYMPHOCYTES ABSOLUTE COUNT 0.98 K/ L 1.32-3.57 L (BEAKER) (test code = 414) MONOCYTES ABSOLUTE COUNT (BEAKER) 0.71 K/ L 0.30-0.82 (test code = 415) EOSINOPHILS ABSOLUTE COUNT 0.09 K/ L 0.04-0.54 (BEAKER) (test code = 416) BASOPHILS ABSOLUTE COUNT (BEAKER) 0.02 K/ L 0.01-0.08 (test code = 417) IMMATURE GRANULOCYTES-RELATIVE 0 % 0-1 PERCENT (BEAKER) (test code = 2801) CT, CHEST, WITHOUT [id number] 02:00:00EMERGENTReason for exam:- >ABDOMINAL PAIN, HX AORTIC DISSECTIONWhat is the patient's sedation requi rement?->No [facility]ation [facility] : 1985 Sex: MFINAL REPORT CT, CHEST, WITHOUT CONTRAST, CT, ABDOMEN \\T\\ PELVIS, WITHOUT IV CONTRAST INDICATION: Unlisted Reason for ExamABDOMINAL PAIN, HX AORTIC DISSECTION COMPARISON: February 19, 2020 TECHNIQUE: Noncontrast axially oriented images were obtained from the thoracic inlet through the pelvis. Coronal and sagittal reformats were provided. DOSE REDUCTION: Dose modulation, iterative reconstruction, and/or weight-based adjustment of the mA/kV was utilized to reduce the radiation dose to as low as reasonably achievable. FINDINGS:ABSENCE OF INTRAVENOUS CONTRAST DECREASES SENSITIVITY FOR DETECTION OF FOCAL LESIONS AND VASCULAR PATHOLOGY. Chest:Lungs and Pleura: Minimal subsegmental atelectasis at the lung bases. No effusion or pneumothorax.Central airways: Patent.Mediastinum: No acute findings.Heart and pericardium: No acute findings.Great vessels: Endovascular graft involving the distalaortic arch and descending aorta noted. Aortic and aortic graft not adequately assessed in the absence of IV contrast administration. Regional skeletal structures: Intact. Abdomen and Pelvis:Hepatobiliary: No acute findings. Cholecystectomy clips present.Pancreas: No acute findings.Spleen: No acute findings. Splenomegaly, 15 cm.Adrenal Glands: No acute findings.Kidneys and ureters: No hydronephrosis or nephrolithiasis. Bilateral perinephric stranding present.Bladder and reproductive organs: Containsgas and a Zuñiga catheter.Gastrointestinal tract: Normal calibers. Large fecal burden.Major vascular structures: Aortic stent graft is asymmetrically located within the abdominal aortic lumen with sugges tion of increased diameter of the abdominal aorta measuring 2.6 x 2.6 cm in cross-section Right external iliac stent graft noted.Peritoneum and retroperitoneum: No free air, fluid or adenopathy.Musculoskeletal: No acute abnormality. Additional Findings: Previously noted left retroperitoneal hematoma has resolved. IMPRESSION: ABSENCE OF INTRAVENOUS CONTRAST DECREASES SENSITIVITY FOR DETECTION OF FOCALLESIONS AND VASCULAR PATHOLOGY. Minimal pulmonary atelectasis. No acute thoracic abnormality. Aorticdissection status post endograft repair. As compared to February 19, 2020, the false lumen component ap pears slightly larger but suboptimally characterized on the current study. Vascular surgical consultfollow up advised. Perinephric stranding is stable. Ischemic changes of the organs cannot be excluded but no secondary sign of ischemic bowel. Critical findings were relayed to PATITO ANNA MD, on 09/10/2020 1:53 AM. Signed: Librado Gregorio MDReport Verified Date/Time: 09/10/2020 02:00:17 CT, [id number] 02:00:00EMERGENTReason for exam:- >ABDOMINAL PAIN, HX OF AORTIC DISSECTIONWhat is the patient's sedation re quirement?->No Sedation [facility] : 1985 Sex: MFINAL REPORT CT, CHEST, WITHOUT CONTRAST, CT, ABDOMEN \\T\\ PELVIS, WITHOUT IV CONTRAST INDICATION: Unlisted Reason for ExamABDOMINAL PAIN, HX AORTIC DISSECTION COMPARISON: February 19, 2020 TECHNIQUE: Noncontrast axially oriented images were obtained from the thoracic inlet through the pelvis. Coronal and sagittal reformats were provided. DOSE REDUCTION: Dose modulation, iterative reconstruction, and/or weight-based adjustment of the mA/kV was utilized to reduce the radiation dose to as low as reasonably achievable. FINDINGS:ABSENCE OF INTRAVENOUS CONTRAST DECREASES SENSITIVITY FOR DETECTION OF FOCAL LESIONS AND VASCULAR PATHOLOGY. Chest:Lungs and Pleura: Minimal subsegmental atelectasis at the lung bases. No effusion or pneumothorax.Central airways: Patent.Mediastinum: No acute findings.Heart and pericardium: No acute findings.Great vessels: Endovascular graft involving the distalaortic arch and descending aorta noted. Aortic and aortic graft not adequately assessed in the absence of IV contrast administration. Regional skeletal structures: Intact. Abdomen and Pelvis:Hepatobiliary: No acute findings. Cholecystectomy clips present.Pancreas: No acute findings.Spleen: No acute findings. Splenomegaly, 15 cm.Adrenal Glands: No acute findings.Kidneys and ureters: No hydronephrosis or nephrolithiasis. Bilateral perinephric stranding present.Bladder and reproductive organs: Containsgas and a Zuñiga catheter.Gastrointestinal tract: Normal calibers. Large fecal burden.Major vascular structures: Aortic stent graft is asymmetrically located within the abdominal aortic lumen with sugges tion of increased diameter of the abdominal aorta measuring 2.6 x 2.6 cm in cross-section Right external iliac stent graft noted.Peritoneum and retroperitoneum: No free air, fluid or adenopathy.Musculoskeletal: No acute abnormality. Additional Findings: Previously noted left retroperitoneal hematoma has resolved. IMPRESSION: ABSENCE OF INTRAVENOUS CONTRAST DECREASES SENSITIVITY FOR DETECTION OF FOCALLESIONS AND VASCULAR PATHOLOGY. Minimal pulmonary atelectasis. No acute thoracic abnormality. Aorticdissection status post endograft repair. As compared to February 19, 2020, the false lumen component ap pears slightly larger but suboptimally characterized on the current study. Vascular surgical consultfollow up advised. Perinephric stranding is stable. Ischemic changes of the organs cannot be excluded but no secondary sign of ischemic bowel. Critical findings were relayed to PATITO ANNA MD, on 09/10/2020 1:53 AM. Signed: Librado Gregorio MDReport Verified Date/Time: 09/10/2020 02:00:17 CT, BRAIN, WITHOUT [id number] 01:37:00Reason for exam:->paralysis, hand numbnessWhat is the patient's sedation requirement?- >No SedationALTA BATES [facility]Name: [facility] : 1985 Sex: MFINAL REPORT CT, BRAIN, WITHOUT CONTRAST CLINICAL INDICATION: Unlisted Reason for Examparalysis, hand numbness COMPARISON: None TECHNIQUE: Noncontrast axial CT imaging of the brain andskull. Coronal and sagittal reformats obtained. DOSE REDUCTION: Dose modulation, iterative reconstruction, and/or weight-based adjustment of the mA/kV was utilized to reduce the radiation dose to as low as reasonably achievable. FINDINGS:Cerebral parenchyma: No mass, acute intracranial hemorrhage or evidence of acute cortical infarct.Cerebellum and brainstem: No acute finding.Ventricles: No evidence of hydrocephalus.Extra-axial spaces: Unremarkable. Calvarium and skull base: Intact.Paranasal sinusesand mastoid air cells: Imaged chambers are without acute abnormality.Orbital contents: Included portions unremarkable. Additional findings: None. IMPRESSION: No acute intracranial abnormality. If thereis persistent clinical concern for intracranial pathology, MR examination is recommended for further characterization. Signed: Librado Gregorio MDReport Verified Date/Time: 09/10/2020 01:37:38 [id number] 15:11:00 Test Item Value Reference Interpretation Comments Range ALDOSTERONE 2.6 ng/dL 0.0-30.0 This test was d eveloped and (test code = its performance ALDOS) characteristics determined by [facility]. It has not been cleared orappro aakash by the Food and Drug Administration. Performed At: [address] [id number] ra Tiffanie VILLALPANDO Ph:[phone] RENIN [id number] 15:11:00 Test Item Value Reference Range Interpretation Comments RENIN ACTIVITY 3.685 0.167-5.380 This test was developed and (test code = ng/mL/hr its performance RENINA) characteristics determined by [facility]. It has not been cleared orappro aakash by the Food and Drug Administration. Performed At: [address] [id number] ra Tiffanie VILLALPANDO Ph:[phone] is test was developed and i ts performance characteristics determined by [facility]. It has not been cleared orappro aakash by the Food and Drug Administration. Previously reported result : 6.297 ng/mL/hrEdited by: OZZY on 09/09/20:017511 1511: RENIN ACTIVITY previously reported as: 6. 297 Hng/mL/hr This test was d eveloped and its performance characteristics determined by [facility]. It has not been cleare d or approved by the Food and Drug Administration. Performed At: [facility] [address] [address] [facility] [place], [place] [id number] Nacho Moreno MD Ph:[phone] CSF CELL [id number] 17:10:00 Test Item Value Reference Range Interpretation Comments CSF COLOR (test code = Colorless COLORLESS COLCSF) CSF APPEARANCE (test Clear CLEAR code = APPCSF) CSF TUBE # (test code = #4 TUBECSF) CSF VOLUME (test code = 9.5 ML VOLCSF) CSF WBC (test code = 3 /mm3 0-9 N WBCCSF) CSF RBC (test code = 2 /mm3 0-0 H RBCCSF) PATHOLOGIST . COMMENTS: INTERPRETATION (test PAUCICE LLULAR code = PATHPHLEB) SPECIMENPA THOLOGIST: JARON PHAM MD Spec Comments: USE TUBE 3CSF OLIGOCLONAL [id number] 17:10:00 Test Item Value Reference Range Interpretation Comments CSF OLIGOCLONAL See_Comment Zero (0) stewart goclonal bands BANDS (test code = were obse rved in the OLIGCSF) CSF.Interpretat ion: Criteria for Positivity: Four (4) or more oligoclona lbands observed only i n the CSF have been shown to be mostconsistent with MS using our method. [Fo ini , Vivien Russell BG, and Isaac JA : Cerebrospinal FluidOligoclona l Bands in the Diagnosis o f Multiple Sclerosis.Am J Clin Pathol 120(5):672-675, 2003]. Oligoclonal ban ds that are present only in the CSF havebeen associ ated with a variety of infl ammatory braindiseases s uch as multiple sclero sis (MS), subacuteencepha litis, neurosyphilis, etc. Increased IgG i n the CSFis not specific fo r MS, but is an indication o f chronicneural i nflammation. Clinical correl ation indicated. Appr oximately 2-3% of clinica lly confirmed MS patientsshow little or no evidence of stewart goclonal bands in theCSF ; however oligoclonal ban ds may develop as the diseaseprogress es. Oligoclonal Ban ding testing performed using IsoelectricFocu sing (IEF) and immunoblott ing methodology.Per formed At: [facility] Jitendra [id number] [facility] [place] [id number] ra Tiffanie VILLALPANDO Ph:[phone] IGOCLONAL GAMMA GLOBULINS ARE DETECTABLE IN THECEREBROSPINA L FLUID IN 75% TO 90% OF P ATIENTS WITH MULTIPLESCLEROS IS. OTHER NEUROLOGICAL DI SEASES IN WHICH THEOLIGOC LONAL BANDS MAY APPEAR INCL UDE ACUTE MENINGITIS ANA NCEPHALITIS, NEUROSYPHILIS, ACUTE IDIOPATHIC POLY NEURITISAND SUBACUTE SCLERO SING PANENCEPHALITIS . [Automated message] The sy stem which generated this result transmitted ref erence range: (). The referen ce range was not used to int erpret this result as brooklynn l/abnormal. Spec Comments: USE TUBE 3CSF GLUCOSE 2020-09-08 17:10:00 Test Item Value Reference Range Interpretation Comments CSF GLUCOSE (test code 37 mg/dL 40-70 L TUBE USED FOR ANALYSIS = GLUCSF) OF CSF SPECIMEN IS: #3 Spec Comments: USE TUBE 3CSF TOT PROTEIN 2020-09-08 17:10:00 Test Item Value Reference Range Interpretation Comments CSF TOT PROTEIN (test 178 mg/dL 12.0-60.0 H TUBE U SED FOR ANALYSIS code = PROTCSF) OF CSF SPECI MEN IS: #3 Spec Comments: USE TUBE 3OSMOLALITY SERUM 2020-09-08 16:50:00 Test Item Value Reference Range Interpretation Comments OSMOLALITY SERUM (test 295 mOsm/kg 275-295 N TESTI NG PREFORMED AT code = OSMO) CONROE [id number] 12:56:00 Test Item Value Reference Range Interpretation Comments GLUBED (test code = GLUBED) 91 MG/DL 74-106 N BASIC METABOLIC [id number] 03:27:00 Test Item Value Reference Range Interpretation Comments SODIUM (test code = 135 mmol/L 137-145 L NA) POTASSIUM (test code 4.2 mmol/L 3.4-5.0 N = K) CHLORIDE (test code = 104 mmol/L 98-107 N CL) CARBON DIOXIDE (test 24 mmol/L 22-30 N code = CO2) GLUCOSE (test code = 92 mg/dL 74-106 N GLU) BLOOD UREA NITROGEN 38 mg/dL 9-20 H (test code = BUN) GLOMERULAR FILTRATION 143 >60 The es timated RATE (test code = glomerular filtration GFR) rate is compute d usingpatient ra ce, age (>18), sex, and serum creatinine. If anyof the needed data elements are mi ssing the Laboratory cannot compute an kevin mation of the glomerul ar filtration rate . CREATININE (test code 0.8 mg/dL 0.7-1.3 N = CREAT) CALCIUM (test code = 8.7 mg/dL 8.4-10.2 N CA) CBC W/AUTO [id number] 03:11:00 Test Item Value Reference Range Interpretation Comments WHITE BLOOD CELL (test code = 7.1 x10 3/uL 5.0-12.0 N WBC) RED BLOOD CELL (test code = 2.81 x10 6/uL 4.70-6.10 L RBC) HEMOGLOBIN (test code = HGB) 8.5 g/dL 14.0-18.0 L HEMATOCRIT (test code = HCT) 26.7 % 37.0-49.0 L MEAN CELL VOLUME (test code = 95 fL 80-94 H MCV) MEAN CELL HGB (test code = MCH) 30.2 pg 27-31 N MEAN CELL HGB CONCENTRATION 31.8 g/dL 33-37 L (test code = MCHC) RED CELL DISTRIBUTION WIDTH 16.9 % 11.5-15.5 H (test code = RDW) PLATELET COUNT (test code = 219 x10 3/uL 130-400 N PLT) MEAN PLATELET VOLUME (test code 9.5 fL 9.4-16.4 N = MPV) NEUTROPHIL % (test code = NT%) 69.2 % 43-65 H IMMATURE GRANULOCYTE % (test 0.7 % 0.0-2.0 N code = IG%) LYMPHOCYTE % (test code = LY%) 16.7 % 20.5-45.5 L MONOCYTE % (test code = MO%) 12.1 % 5.5-11.7 H EOSINOPHIL % (test code = EO%) 1.0 % 0.9-2.9 N BASOPHIL % (test code = BA%) 0.3 % 0.2-1.0 N NUCLEATED RBC % (test code = 0.0 % 0-1.0 N NRBC%) NEUTROPHIL # (test code = NT#) 4.88 x10 3/uL 2.2-4.8 H IMMATURE GRANULOCYTE # (test 0.05 x10 3/uL 0-0.03 H code = IG#) LYMPHOCYTE # (test code = LY#) 1.18 x10 3/uL 1.3-2.9 L MONOCYTE # (test code = MO#) 0.85 x10 3/uL 0.3-0.8 H EOSINOPHIL # (test code = EO#) 0.07 x10 3/uL 0.0-0.2 N BASOPHIL # (test code = BA#) 0.02 x10 3/uL 0.0-0.1 N [id number] 21:18:00 Test Item Value Reference Range Interpretation Comments GLUBED (test code = GLUBED) 101 MG/DL 74-106 N [id number] 16:38:00 Test Item Value Reference Range Interpretation Comments GLUBED (test code = GLUBED) 101 MG/DL 74-106 N [place]ST [place]ILE VIRUS AB PANEL [id number] 16:08:00 Test Item Value Reference Range Interpretation Comments AB WEST NILE Positive Negative A Positive for We st Nile Virus VIRUS IGG CSF IgG Antibody. (test code = Serologicalcros s-reactivity WESNIABIGGCSF) among flavivi ruses (e.g. [place]encephalit is and dengue viruses) is com mon. AB WEST [place] Negative Negative No detectable W est Nile VIRUS IGM CSF Virus IgM Anti body. If a (test code = recentinfection is WESNIABIGMCSF) suspected, an other specimen should besubmit kar for testing within 7-14 days.Performed At: [facility] [id number] [facility], [place] [id number] ra Tiffanie VILLALPANDO Ph:[phone] BASIC METABOLIC [id number] 06:35:00 Test Item Value Reference Range Interpretation Comments SODIUM (test code = 139 mmol/L 137-145 N NA) POTASSIUM (test code 3.6 mmol/L 3.4-5.0 N = K) CHLORIDE (test code = 103 mmol/L 98-107 N CL) CARBON DIOXIDE (test 26 mmol/L 22-30 N code = CO2) GLUCOSE (test code = 114 mg/dL 74-106 H GLU) BLOOD UREA NITROGEN 38 mg/dL 9-20 H (test code = BUN) GLOMERULAR FILTRATION 124 >60 The es timated RATE (test code = glomerular filtration GFR) rate is compute d usingpatient ra ce, age (>18), sex, and serum creatinine. If anyof the needed data elements are mi ssing the Laboratory cannot compute an kevin mation of the glomerul ar filtration rate . CREATININE (test code 0.9 mg/dL 0.7-1.3 N = CREAT) CALCIUM (test code = 8.9 mg/dL 8.4-10.2 N CA) CBC W/AUTO [id number] 06:14:00 Test Item Value Reference Range Interpretation Comments WHITE BLOOD CELL (test code = 8.0 x10 3/uL 5.0-12.0 N WBC) RED BLOOD CELL (test code = 2.82 x10 6/uL 4.70-6.10 L RBC) HEMOGLOBIN (test code = HGB) 8.6 g/dL 14.0-18.0 L HEMATOCRIT (test code = HCT) 26.8 % 37.0-49.0 L MEAN CELL VOLUME (test code = 95 fL 80-94 H MCV) MEAN CELL HGB (test code = MCH) 30.5 pg 27-31 N MEAN CELL HGB CONCENTRATION 32.1 g/dL 33-37 L (test code = MCHC) RED CELL DISTRIBUTION WIDTH 16.9 % 11.5-15.5 H (test code = RDW) PLATELET COUNT (test code = 246 x10 3/uL 130-400 N PLT) MEAN PLATELET VOLUME (test code 9.5 fL 9.4-16.4 N = MPV) NEUTROPHIL % (test code = NT%) 80.3 % 43-65 H IMMATURE GRANULOCYTE % (test 0.6 % 0.0-2.0 N code = IG%) LYMPHOCYTE % (test code = LY%) 9.1 % 20.5-45.5 L MONOCYTE % (test code = MO%) 9.9 % 5.5-11.7 N EOSINOPHIL % (test code = EO%) 0.1 % 0.9-2.9 L BASOPHIL % (test code = BA%) 0.0 % 0.2-1.0 L NUCLEATED RBC % (test code = 0.0 % 0-1.0 N NRBC%) NEUTROPHIL # (test code = NT#) 6.44 x10 3/uL 2.2-4.8 H IMMATURE GRANULOCYTE # (test 0.05 x10 3/uL 0-0.03 H code = IG#) LYMPHOCYTE # (test code = LY#) 0.73 x10 3/uL 1.3-2.9 L MONOCYTE # (test code = MO#) 0.79 x10 3/uL 0.3-0.8 N EOSINOPHIL # (test code = EO#) 0.01 x10 3/uL 0.0-0.2 N BASOPHIL # (test code = BA#) 0.00 x10 3/uL 0.0-0.1 N - CTA ABD PEL W [id number] 13:28:00 [facility] : 1985 Sex: M FAX: Mahin Aly MD Constable: St: ADM FAX: Tessa Mccullough Name: JORGE GOINS [facility] [place] : 1985 Age/S: 35/M [address] Unit: [id number] Loc: C.[address] [place] [address] Phys: Tessa Mcculloughusebrii DO Acct: [id number] Dis Date: Status: ADM IN PHONE #: [phone] Exam Date: 09/06/20200 FAX #: [phone] Reason: abd pain EXAMS: CPT CODE: [id number] CTA ABD PEL W CONT 76216 EXAM: - CTAABD PEL W CONT LOCATION: C3 INDICATION: 35 years -old Male with abd pain TECHNIQUE: Contrast - IV contrast was given. No oral contrast was given Arterial phase - abdomen and pelvis No delayed phase im ages were obtained. MIP- coronal and sagittal planes This exam was performed according to our departmental dose-optimization program, which includes automated exposure control, adjustment of the mA and/or kV according to patient size and/or use of iterative reconstruction technique COMPARISON: 06/21/2020 FINDINGS: Statements: None. Thoracic: Included images of the lower chest demonstrate no abnormalities. Hepatobiliary: The liver is normal without focal lesion. Status post cholecystectomy. No biliary dilation. Pancreas: Normal. Spleen: Normal. Adrenals: Normal. Genitourinary: The kidneys are normal. No evidence of hydronephrosis. Zuñiga catheter is identified within the urinary bladder. Gastrointestinal: No bowel obstruction or perienteric inflammation. The appendix is normal. Severe colonic stool burden is noted. Vascular: Abdominal aortic dissection with stent graft within the true lumen noted. The dissection begins at the aortic hiatus and extends partially into the proximal right renal artery, left common iliac PAGE 1 Signed Report (CONTINUED) FAX: Mahni Aly MD Constable: St: ADM FAX: ElvermartineTessa Name: JORGE GOINSwood : 1985 Age/S: 35/M [address] Unit: [id number] Loc: C.[address] [place] [address] Phys: Tessa Mccullough DO Acct: [id number] Dis Date: Status:ADM IN PHONE #: [phone] Exam Date: 09/06/20201119 FAX #: [phone] Reason: abd pain EXAMS:CPT CODE: [id number] CTA ABD PEL W CONT 84480 (Continued) artery. The dissection extends throughout the right common iliac artery and partially into the right internal iliac artery. A right external iliac artery stent graft is noted. There is progressed contrast opacification of the false lumen compared to prior exam. No hemodynamically significant stenosis at the visceral artery ostia. No periaortic hematoma is noted. Lymphatics: No enlarged lymph nodes by CT size criteria. Bones/Soft Tissues: No acute osseous findings. No ventral hernias. Peritoneum/Other: No extraluminal air. No extraluminal fluid. IMPRESSION: Severe colonic stool burden, correlate for constipation. Abdominal aortic dissectionas above in the vascular dissection. at 1328 Reported and signed by: Denny Mohamud MD CC: Evelia Stockton MD; Tessa Mccullough DO Technologist: DAVID TELLEZ Trnscrd Dt/Tm: 09/06/2020 (4828) LourdesHV2 Orig Print D/T: S: 09/06/2020(7601 PAGE 2 Signed [id number] 13:11:00 Test Item Value Reference Range Interpretation Comments GLUBED (test code = GLUBED) 163 MG/DL 74-106 H BASIC METABOLIC [id number] 05:41:00 Test Item Value Reference Range Interpretation Comments SODIUM (test code = 135 mmol/L 137-145 L NA) POTASSIUM (test code 4.7 mmol/L 3.4-5.0 N = K) CHLORIDE (test code = 99 mmol/L 98-107 N CL) CARBON DIOXIDE (test 24 mmol/L 22-30 N code = CO2) GLUCOSE (test code = 170 mg/dL 74-106 H GLU) BLOOD UREA NITROGEN 28 mg/dL 9-20 H (test code = BUN) GLOMERULAR FILTRATION 166 >60 The es timated RATE (test code = glomerular filtration GFR) rate is compute d usingpatient ra ce, age (>18), sex, and serum creatinine. If anyof the needed data elements are mi ssing the Laboratory cannot compute an kevin mation of the glomerul ar filtration rate . CREATININE (test code 0.7 mg/dL 0.7-1.3 N = CREAT) CALCIUM (test code = 8.9 mg/dL 8.4-10.2 N CA) CBC W/AUTO [id number] 05:28:00 Test Item Value Reference Range Interpretation Comments WHITE BLOOD CELL (test code = 5.6 x10 3/uL 5.0-12.0 N WBC) RED BLOOD CELL (test code = 2.86 x10 6/uL 4.70-6.10 L RBC) HEMOGLOBIN (test code = HGB) 8.7 g/dL 14.0-18.0 L HEMATOCRIT (test code = HCT) 27.1 % 37.0-49.0 L MEAN CELL VOLUME (test code = 95 fL 80-94 H MCV) MEAN CELL HGB (test code = MCH) 30.4 pg 27-31 N MEAN CELL HGB CONCENTRATION 32.1 g/dL 33-37 L (test code = MCHC) RED CELL DISTRIBUTION WIDTH 16.6 % 11.5-15.5 H (test code = RDW) PLATELET COUNT (test code = 245 x10 3/uL 130-400 N PLT) MEAN PLATELET VOLUME (test code 9.4 fL 9.4-16.4 N = MPV) NEUTROPHIL % (test code = NT%) 85.4 % 43-65 H IMMATURE GRANULOCYTE % (test 0.5 % 0.0-2.0 N code = IG%) LYMPHOCYTE % (test code = LY%) 8.1 % 20.5-45.5 L MONOCYTE % (test code = MO%) 5.8 % 5.5-11.7 N EOSINOPHIL % (test code = EO%) 0.0 % 0.9-2.9 L BASOPHIL % (test code = BA%) 0.2 % 0.2-1.0 N NUCLEATED RBC % (test code = 0.0 % 0-1.0 N NRBC%) NEUTROPHIL # (test code = NT#) 4.74 x10 3/uL 2.2-4.8 N IMMATURE GRANULOCYTE # (test 0.03 x10 3/uL 0-0.03 N code = IG#) LYMPHOCYTE # (test code = LY#) 0.45 x10 3/uL 1.3-2.9 L MONOCYTE # (test code = MO#) 0.32 x10 3/uL 0.3-0.8 N EOSINOPHIL # (test code = EO#) 0.00 x10 3/uL 0.0-0.2 N BASOPHIL # (test code = BA#) 0.01 x10 3/uL 0.0-0.1 N BASIC METABOLIC [id number] 17:01:00 Test Item Value Reference Range Interpretation Comments SODIUM (test code = 133 mmol/L 137-145 L NA) POTASSIUM (test code 5.4 mmol/L 3.4-5.0 H IS THE SAMPLE = K) HEMOLYZED?:SONU MOLYSIS GRADE:NO CHLORIDE (test code = 99 mmol/L 98-107 N CL) CARBON DIOXIDE (test 24 mmol/L 22-30 N code = CO2) GLUCOSE (test code = 139 mg/dL 74-106 H GLU) BLOOD UREA NITROGEN 22 mg/dL 9-20 H (test code = BUN) GLOMERULAR FILTRATION 166 >60 The es timated RATE (test code = glomerular filtration GFR) rate is compute d usingpatient ra ce, age (>18), sex, and serum creatinine. If anyof the needed data elements are mi ssing the Laboratory cannot compute an kevin mation of the glomerul ar filtration rate . CREATININE (test code 0.7 mg/dL 0.7-1.3 N = CREAT) CALCIUM (test code = 9.2 mg/dL 8.4-10.2 N CA) CBC W/AUTO [id number] 16:28:00 Test Item Value Reference Range Interpretation Comments WHITE BLOOD CELL (test code = 4.5 x10 3/uL 5.0-12.0 L WBC) RED BLOOD CELL (test code = 2.87 x10 6/uL 4.70-6.10 L RBC) HEMOGLOBIN (test code = HGB) 8.9 g/dL 14.0-18.0 L HEMATOCRIT (test code = HCT) 27.4 % 37.0-49.0 L MEAN CELL VOLUME (test code = 96 fL 80-94 H MCV) MEAN CELL HGB (test code = MCH) 31.0 pg 27-31 N MEAN CELL HGB CONCENTRATION 32.5 g/dL 33-37 L (test code = MCHC) RED CELL DISTRIBUTION WIDTH 16.6 % 11.5-15.5 H (test code = RDW) PLATELET COUNT (test code = 235 x10 3/uL 130-400 N PLT) MEAN PLATELET VOLUME (test code 9.4 fL 9.4-16.4 N = MPV) NEUTROPHIL % (test code = NT%) 90.9 % 43-65 H IMMATURE GRANULOCYTE % (test 0.2 % 0.0-2.0 N code = IG%) LYMPHOCYTE % (test code = LY%) 8.0 % 20.5-45.5 L MONOCYTE % (test code = MO%) 0.7 % 5.5-11.7 L EOSINOPHIL % (test code = EO%) 0.0 % 0.9-2.9 L BASOPHIL % (test code = BA%) 0.2 % 0.2-1.0 N NUCLEATED RBC % (test code = 0.0 % 0-1.0 N NRBC%) NEUTROPHIL # (test code = NT#) 4.09 x10 3/uL 2.2-4.8 N IMMATURE GRANULOCYTE # (test 0.01 x10 3/uL 0-0.03 N code = IG#) LYMPHOCYTE # (test code = LY#) 0.36 x10 3/uL 1.3-2.9 L MONOCYTE # (test code = MO#) 0.03 x10 3/uL 0.3-0.8 L EOSINOPHIL # (test code = EO#) 0.00 x10 3/uL 0.0-0.2 N BASOPHIL # (test code = BA#) 0.01 x10 3/uL 0.0-0.1 N [id number] 12:55:00 Test Item Value Reference Range Interpretation Comments GLUBED (test code = GLUBED) 120 MG/DL 74-106 H [id number] 21:16:00 Test Item Value Reference Range Interpretation Comments GLUBED (test code = GLUBED) 99 MG/DL 74-[id number] 15:52:00 Test Item Value Reference Range Interpretation Comments CSF COLOR (test code = Colorless COLORLESS COLCSF) CSF APPEARANCE (test Clear CLEAR code = APPCSF) CSF TUBE # (test code = #4 TUBECSF) CSF VOLUME (test code = 9.5 ML VOLCSF) CSF WBC (test code = 3 /mm3 0-9 N WBCCSF) CSF RBC (test code = 2 /mm3 0-0 H RBCCSF) PATHOLOGIST . COMMENTS: INTERPRETATION (test PAUCICE LLULAR code = PATHPHLEB) SPECIMENPA THOLOGIST: JARON PHAM MD Spec Comments: USE TUBE 3CSF OLIGOCLONAL [id number] 15:52:00 Test Item Value Reference Range Interpretation Comments CSF OLIGOCLONAL BANDS (test code = NONE DETECT OLIGCSF) Spec Comments: USE TUBE 3CSF GLUCOSE 2020-09-04 15:52:00 Test Item Value Reference Range Interpretation Comments CSF GLUCOSE (test code 37 mg/dL 40-70 L TUBE USED FOR ANALYSIS = GLUCSF) OF CSF SPECIMEN IS: #3 Spec Comments: USE TUBE 3CSF TOT PROTEIN 2020-09-04 15:52:00 Test Item Value Reference Range Interpretation Comments CSF TOT PROTEIN (test 178 mg/dL 12.0-60.0 H TUBE U SED FOR ANALYSIS code = PROTCSF) OF CSF SPECI MEN IS: #3 Spec Comments: USE TUBE [id number] 13:24:00 Test Item Value Reference Range Interpretation Comments GLUBED (test code = GLUBED) 82 MG/DL 74-106 N BASIC METABOLIC [id number] 06:51:00 Test Item Value Reference Range Interpretation Comments SODIUM (test code = 138 mmol/L 137-145 N NA) POTASSIUM (test code 4.7 mmol/L 3.4-5.0 N = K) CHLORIDE (test code = 105 mmol/L 98-107 N CL) CARBON DIOXIDE (test 24 mmol/L 22-30 N code = CO2) GLUCOSE (test code = 91 mg/dL 74-106 N GLU) BLOOD UREA NITROGEN 23 mg/dL 9-20 H (test code = BUN) GLOMERULAR FILTRATION 166 >60 The es timated RATE (test code = glomerular filtration GFR) rate is compute d usingpatient ra ce, age (>18), sex, and serum creatinine. If anyof the needed data elements are mi ssing the Laboratory cannot compute an kevin mation of the glomerul ar filtration rate . CREATININE (test code 0.7 mg/dL 0.7-1.3 N = CREAT) CALCIUM (test code = 9.0 mg/dL 8.4-10.2 N CA) CBC W/AUTO [id number] 06:30:00 Test Item Value Reference Range Interpretation Comments WHITE BLOOD CELL (test code = 4.7 x10 3/uL 5.0-12.0 L WBC) RED BLOOD CELL (test code = 3.07 x10 6/uL 4.70-6.10 L RBC) HEMOGLOBIN (test code = HGB) 9.5 g/dL 14.0-18.0 L HEMATOCRIT (test code = HCT) 28.8 % 37.0-49.0 L MEAN CELL VOLUME (test code = 94 fL 80-94 N MCV) MEAN CELL HGB (test code = MCH) 30.9 pg 27-31 N MEAN CELL HGB CONCENTRATION 33.0 g/dL 33-37 N (test code = MCHC) RED CELL DISTRIBUTION WIDTH 17.0 % 11.5-15.5 H (test code = RDW) PLATELET COUNT (test code = 223 x10 3/uL 130-400 N PLT) MEAN PLATELET VOLUME (test code 9.1 fL 9.4-16.4 L = MPV) NEUTROPHIL % (test code = NT%) 65.3 % 43-65 H IMMATURE GRANULOCYTE % (test 0.4 % 0.0-2.0 N code = IG%) LYMPHOCYTE % (test code = LY%) 21.0 % 20.5-45.5 N MONOCYTE % (test code = MO%) 8.9 % 5.5-11.7 N EOSINOPHIL % (test code = EO%) 4.0 % 0.9-2.9 H BASOPHIL % (test code = BA%) 0.4 % 0.2-1.0 N NUCLEATED RBC % (test code = 0.0 % 0-1.0 N NRBC%) NEUTROPHIL # (test code = NT#) 3.07 x10 3/uL 2.2-4.8 N IMMATURE GRANULOCYTE # (test 0.02 x10 3/uL 0-0.03 N code = IG#) LYMPHOCYTE # (test code = LY#) 0.99 x10 3/uL 1.3-2.9 L MONOCYTE # (test code = MO#) 0.42 x10 3/uL 0.3-0.8 N EOSINOPHIL # (test code = EO#) 0.19 x10 3/uL 0.0-0.2 N BASOPHIL # (test code = BA#) 0.02 x10 3/uL 0.0-0.1 N - PUNCTURE LUMBAR [id number] 17:25:00 [facility] ETHANTREMAYNE ROGERSROBINA Teresa : 1985 Sex: M FAX: Mahin Aly MD Constable: [facility]: [facility] FAX: Jessica Phillips MD [phone] Name: JORGE GOINS [facility] : 1985 Age/S: 35/M [id number] Unit #: [id number] Loc: [id number] [place] [id number] Phys: Jessica Parson MD Acct: [id number] Dis Date: Status: ADM IN PHONE #: [phone] Exam Date: 09/03/2020 1000 FAX #: [phone] Reason: paraparesis EXAMS: CPT CODE: [id number] [place] [address] PROCEDURE: IMAGE-GUIDED LUMBAR PUNCTURE. LOCATION: C3. HISTORY: Paraplegia Contact Acid Plant Operator Helper: Tucker Chaves PA-C Assisted by: Dr Woodruff SEDATION: The patient did not require conscious sedation for the procedure. RADIATION DOSE: Total reference air kerma 16.659 mGy. TECHNIQUE: Risks, benefits, and alternatives were discussed and informed consent was obtained. The patient was prepped in the usual sterile fashion.Sterile barriers including cap, mask, sterile gloves, and cutaneous antisepsis were utilized. Patient was placed in the prone position. Fluoroscopy was used to determine an appropriate access into the thecal sac. Using fluoroscopic guidance, a needle was advanced into the thecal sac at the level of L4/5. Opening CSF pressure was less than 12 cm H2O. Approximately 10 mL of clear CSF was removed. Samples were sent for lab analysis. The patient tolerated the procedure well. ESTIMATED BLOOD LOSS: Less than 5 mL. COMPLICATIONS: None. DISCHARGED TO: Inpatient unit. FINDINGS: Fluoroscopy demonstrates appropriate needle placement into the thecal sac. IMPRESSION: Successful image-guided lumbar puncture. PAGE 1 Signed Report (CONTINUED) FAX: Mahin Aly MD Constable: [facility]: ADM FAX: Jessica Phillips MD [phone] Name: JORGE GOINS [facility] : 1985 Age/S: 35/M [address] Unit #: [id number] Loc: [address], [place] [address] Phys: Jessica Parson MD Acct: [id number] Dis Date: Status: ADM IN PHONE #: [phone] Exam Date: 09/03/2020 1000 FAX #: [phone] Reason: paraparesis EXAMS: CPT CODE: [id number] [place] [address] (Continued) at 1725 Reported and signed by: Philip Higgins M.D. CC: Evelia Stockton MD; Jessica Parson MD Technologist: Jenelle Braswell [facility] Date/Time/By: 09/03/2020 (1725) : By: LourdesHPJulienne PAGE 2 Signed Report FAX: Mahin Aly MD Constable: St: ADM FAX: Jessica Phillips MD [phone] Name: PANJORGE Teresa [facility] : 1985 Age/S: 35/M [address] Unit #: [id number] Loc: [address] [place] [address] Phys: Jessica Parson MD Acct: [id number] Dis Date: Status: ADM IN PHONE #: [phone] Exam Date: 09/03/2020 1000 FAX #:[phone] Reason: paraparesis EXAMS: CPT CODE: [id number] [place] [address] (Continued) Orig Print D/T: S: 09/03/2020 (1728) PAGE 3 Signed [id number] 13:49:00 Test Item Value Reference Range Interpretation Comments GLUBED (test code = GLUBED) 87 MG/DL 74-106 N BASIC METABOLIC [id number] 12:36:00 Test Item Value Reference Range Interpretation Comments SODIUM (test code = 137 mmol/L 137-145 N NA) POTASSIUM (test code 4.4 mmol/L 3.4-5.0 N = K) CHLORIDE (test code = 104 mmol/L 98-107 N CL) CARBON DIOXIDE (test 24 mmol/L 22-30 N code = CO2) GLUCOSE (test code = 96 mg/dL 74-106 N GLU) BLOOD UREA NITROGEN 20 mg/dL 9-20 N (test code = BUN) GLOMERULAR FILTRATION 166 >60 The es timated RATE (test code = glomerular filtration GFR) rate is compute d usingpatient ra ce, age (>18), sex, and serum creatinine. If anyof the needed data elements are mi ssing the Laboratory cannot compute an kevin mation of the glomerul ar filtration rate . CREATININE (test code 0.7 mg/dL 0.7-1.3 N = CREAT) CALCIUM (test code = 9.1 mg/dL 8.4-10.2 N CA) [id number] 12:36:00 Test Item Value Reference Range Interpretation Comments MAGNESIUM (test code = MAG) 1.7 mg/dL 1.6-2.3 N PLATELET [id number] 12:20:00 Test Item Value Reference Range Interpretation Comments PLATELET COUNT (test code = PLT) 225 x10 3/uL 130-[id number] 11:07:00 Test Item Value Reference Range Interpretation Comments CSF COLOR (test code = COLCSF) Colorless COLORLESS CSF APPEARANCE (test code = APPCSF) Clear CLEAR CSF TUBE # (test code = TUBECSF) #4 CSF VOLUME (test code = VOLCSF) 9.5 ML CSF WBC (test code = WBCCSF) 3 /mm3 0-9 N CSF RBC (test code = RBCCSF) 2 /mm3 0-0 H PATHOLOGIST INTERPRETATION (test . code = PATHPHLEB) Spec Comments: USE TUBE 3CSF OLIGOCLONAL [id number] 11:07:00 Test Item Value Reference Range Interpretation Comments CSF OLIGOCLONAL BANDS (test code = NONE DETECT OLIGCSF) Spec Comments: USE TUBE 3CSF [id number] 11:07:00 Test Item Value Reference Range Interpretation Comments CSF GLUCOSE (test code 37 mg/dL 40-70 L TUBE USED FOR ANALYSIS = GLUCSF) OF CSF SPECIMEN IS: #3 Spec Comments: USE TUBE 3CSF TOT [id number] 11:07:00 Test Item Value Reference Range Interpretation Comments CSF TOT PROTEIN (test 178 mg/dL 12.0-60.0 H TUBE U SED FOR ANALYSIS code = PROTCSF) OF CSF SPECI MEN IS: #3 Spec Comments: USE TUBE 3CSF CELL [id number] 11:00:00 Test Item Value Reference Range Interpretation Comments CSF COLOR (test code = COLCSF) COLORLESS CSF APPEARANCE (test code = APPCSF) CLEAR CSF TUBE # (test code = TUBECSF) CSF VOLUME (test code = VOLCSF) ML CSF WBC (test code = WBCCSF) /mm3 0-9 CSF RBC (test code = RBCCSF) /mm3 0-0 CSF POLYNUCLEAR (test code = POLYCSF) % Spec Comments: USE TUBE 3CSF OLIGOCLONAL [id number] 11:00:00 Test Item Value Reference Range Interpretation Comments CSF OLIGOCLONAL BANDS (test code = NONE DETECT OLIGCSF) Spec Comments: USE TUBE 3CSF [id number] 11:00:00 Test Item Value Reference Range Interpretation Comments CSF GLUCOSE (test code 37 mg/dL 40-70 L TUBE USED FOR ANALYSIS = GLUCSF) OF CSF SPECIMEN IS: #3 Spec Comments: USE TUBE 3CSF TOT [id number] 11:00:00 Test Item Value Reference Range Interpretation Comments CSF TOT PROTEIN (test 178 mg/dL 12.0-60.0 H TUBE U SED FOR ANALYSIS code = PROTCSF) OF CSF SPECI MEN IS: #3 Spec Comments: USE TUBE [id number] 05:49:00 Test Item Value Reference Range Interpretation Comments GLUBED (test code = GLUBED) 75 MG/DL 74-106 N PROTHROMBIN [id number] 05:43:00 Test Item Value Reference Range Interpretation Comments PROTHROMBIN TIME 13.8 SECONDS 9.2-12.1 H PATIENT (test code = PTP) INTERNATIONAL NORMAL 1.2 The INR is to be used RATIO (test code = only for monitoring INR) ORAL ANTICOAGULANTTH ERAPY. Indication INR Value1. Prophylaxis/jaxon atment of: Venous Thro mbosis, Pulmonary Embol ism 2.0 - 3.02. Prevent ion of systemic emboli sm from: Tissue he art valves 2.0 - 3. 0 Acute myocardial infa rction (to present sys temic embolism)* 2.0 - 3.0 Valvular heart disease 2.0 - 3.0 Atria l fibrillation 2. 0 - 3.03. Mechanica l prosthetic valv es (high risk) 2.5 - 3.5 * If oral anticoagulant t herapy is elected to preventrecurren t myocardial infa rction, an INR of 2.5-3 .5 isrecommended, consistent with Food and Drug Administrationr ecommen dations. THROMBOPLASTIN TIME [id number] 05:43:00 Test Item Value Reference Range Interpretation Comments THROMBOPLASTIN TIME 31.3 SECONDS 23.4-37.0 N Therape utic Range PARTIAL (test code = for Hep dennis PTT) EFFECTIVE Heparin IU/mL a PTT Seconds0.3 64.3 0.7 88.8 [id number] 21:15:00 Test Item Value Reference Range Interpretation Comments GLUBED (test code = GLUBED) 118 MG/DL 74-106 H [id number] 13:43:00 Test Item Value Reference Range Interpretation Comments GLUBED (test code = GLUBED) 83 MG/DL 74-106 N [id number] 11:37:00 Test Item Value Reference Range Interpretation Comments GLUBED (test code = GLUBED) 63 MG/DL 74-106 L [id number] 00:55:00 Test Item Value Reference Range Interpretation Comments GLUBED (test code = GLUBED) 99 MG/DL 74-106 N [id number] 17:44:00 Test Item Value Reference Range Interpretation Comments GLUBED (test code = GLUBED) 114 MG/DL 74-106 H [id number] 12:29:00 Test Item Value Reference Range Interpretation Comments GLUBED (test code = GLUBED) 55 MG/DL 74-106 L [id number] 06:32:00 Test Item Value Reference Range Interpretation Comments GLUBED (test code = GLUBED) 77 MG/DL 74-106 N [id number] 22:46:00 Test Item Value Reference Range Interpretation Comments GLUBED (test code = GLUBED) 92 MG/DL 74-106 N [id number] 17:51:00 Test Item Value Reference Range Interpretation Comments GLUBED (test code = GLUBED) 87 MG/DL 74-106 N [id number] 11:56:00 Test Item Value Reference Range Interpretation Comments GLUBED (test code = 47 MG/DL 74-106 LL GLUBED) A VE NOUS SPECIMEN SHOULD BE ORDERED FOR GLU COSE VERIFICATION IF MEDICALLY NECESSARY. BASIC METABOLIC [id number] 06:34:00 Test Item Value Reference Range Interpretation Comments SODIUM (test code = 136 mmol/L 137-145 L NA) POTASSIUM (test code 4.8 mmol/L 3.4-5.0 N = K) CHLORIDE (test code = 104 mmol/L 98-107 N CL) CARBON DIOXIDE (test 22 mmol/L 22-30 N code = CO2) GLUCOSE (test code = 89 mg/dL 74-106 N GLU) BLOOD UREA NITROGEN 24 mg/dL 9-20 H (test code = BUN) GLOMERULAR FILTRATION 143 >60 The es timated RATE (test code = glomerular filtration GFR) rate is compute d usingpatient ra ce, age (>18), sex, and serum creatinine. If anyof the needed data elements are mi ssing the Laboratory cannot compute an kevin mation of the glomerul ar filtration rate . CREATININE (test code 0.8 mg/dL 0.7-1.3 N = CREAT) CALCIUM (test code = 9.0 mg/dL 8.4-10.2 N CA) CBC W/AUTO [id number] 06:12:00 Test Item Value Reference Range Interpretation Comments WHITE BLOOD CELL (test code = 4.9 x10 3/uL 5.0-12.0 L WBC) RED BLOOD CELL (test code = 2.92 x10 6/uL 4.70-6.10 L RBC) HEMOGLOBIN (test code = HGB) 8.8 g/dL 14.0-18.0 L HEMATOCRIT (test code = HCT) 28.3 % 37.0-49.0 L MEAN CELL VOLUME (test code = 97 fL 80-94 H MCV) MEAN CELL HGB (test code = MCH) 30.1 pg 27-31 N MEAN CELL HGB CONCENTRATION 31.1 g/dL 33-37 L (test code = MCHC) RED CELL DISTRIBUTION WIDTH 17.0 % 11.5-15.5 H (test code = RDW) PLATELET COUNT (test code = 236 x10 3/uL 130-400 N PLT) MEAN PLATELET VOLUME (test code 9.4 fL 9.4-16.4 N = MPV) NEUTROPHIL % (test code = NT%) 62.5 % 43-65 N IMMATURE GRANULOCYTE % (test 0.2 % 0.0-2.0 N code = IG%) LYMPHOCYTE % (test code = LY%) 21.8 % 20.5-45.5 N MONOCYTE % (test code = MO%) 11.2 % 5.5-11.7 N EOSINOPHIL % (test code = EO%) 3.9 % 0.9-2.9 H BASOPHIL % (test code = BA%) 0.4 % 0.2-1.0 N NUCLEATED RBC % (test code = 0.0 % 0-1.0 N NRBC%) NEUTROPHIL # (test code = NT#) 3.06 x10 3/uL 2.2-4.8 N IMMATURE GRANULOCYTE # (test 0.01 x10 3/uL 0-0.03 N code = IG#) LYMPHOCYTE # (test code = LY#) 1.07 x10 3/uL 1.3-2.9 L MONOCYTE # (test code = MO#) 0.55 x10 3/uL 0.3-0.8 N EOSINOPHIL # (test code = EO#) 0.19 x10 3/uL 0.0-0.2 N BASOPHIL # (test code = BA#) 0.02 x10 3/uL 0.0-0.1 N [id number] 05:44:00 Test Item Value Reference Range Interpretation Comments GLUBED (test code = GLUBED) 75 MG/DL 74-106 N [id number] 21:03:00 Test Item Value Reference Range Interpretation Comments GLUBED (test code = GLUBED) 88 MG/DL 74-106 N [id number] 12:11:00 Test Item Value Reference Range Interpretation Comments GLUBED (test code = GLUBED) 84 MG/DL 74-106 N [id number] 21:11:00 Test Item Value Reference Range Interpretation Comments GLUBED (test code = GLUBED) 91 MG/DL 74-106 N - XR CHEST 1 [id number] 13:22:00 [facility] : 1985 Sex: M FAX: Mahin Aly MD Constable: St: ADM Name: JORGE GOINS [facility] : 1985 Age/S: 35/M [address] Unit #: [id number] Loc: [place] [address] Phys: Mahin Altamirano MD Acct: [id number] Dis Date:Status: ADM IN PHONE #: [phone] Exam Date: 08/28/2020 1311 FAX #: [phone] Reason: cough EX AMS: CPT CODE: [id number] XR CHEST 1 V 32529 EXAMINATION: Frontal chest radiograph INDICATION: Cough COMPARISON: None FINDINGS: Status post stent graft repair of thoracic aorta. Clear lungs. No pleural effusion or pneumothorax. Normal cardiomediastinal silhouette. IMPRESSION: No acute abnormality identi fied. at 1322 Reported and signed by: Santosh Carson M.D. CC: Evelia Stockton MD Technologist: [facility] Date/Time/By: 08/28/2020 (1322) : By: [email or web address] PAGE 1 Signed Report FAX: Mahin Aly MD Constable: St: ADM Name: JORGE GOINS [facility] : 1985 Age/S: 35/M [address] Unit #: [id number] Loc: [place] [address] Phys: Mahin Altamirano MD Acct: [id number] Dis Date: Status: ADM IN PHONE #: [phone] Exam Date: 10/2020 1311 FAX #: [phone] Reason: cough EXAMS: CPT CODE: [id number] XR CHEST 1 V 38329 (Continued) Orig Print D/T: S: 08/28/2020 (1586) PAGE 2 Signed [id number] 17:55:00 Test Item Value Reference Range Interpretation Comments GLUBED (test code = GLUBED) 85 MG/DL 74-106 N COMPREHENSIVE METABOLIC [id number] 06:36:00 Test Item Value Reference Range Interpretation Comments SODIUM (test code = 137 mmol/L 137-145 N NA) POTASSIUM (test code 4.7 mmol/L 3.4-5.0 N = K) CHLORIDE (test code 105 mmol/L 98-107 N = CL) CARBON DIOXIDE (test 22 mmol/L 22-30 N code = CO2) GLUCOSE (test code = 84 mg/dL 74-106 N GLU) BLOOD UREA NITROGEN 29 mg/dL 9-20 H (test code = BUN) GLOMERULAR 166 >60 The estimated FILTRATION RATE glomerular f iltration (test code = GFR) rate is co mputed usingpatient ra ce, age (>18), sex, and serum creatinine. If anyof the needed data elements are mi ssing the Laboratory cannot compute an kevin mation of the glomerul ar filtration rate . CREATININE (test 0.7 mg/dL 0.7-1.3 N code = CREAT) TOTAL PROTEIN (test 7.7 g/dL 6.3-8.2 N code = PROT) " A positive bias m ay occur for patients ta rosario Eltrombopag(a b one marrow stimulan t used to treat thrombocytopeni a andaplastic anemia)." ALBUMIN (test code = 3.8 g/dL 3.5-5.0 N ALB) CALCIUM (test code = 9.2 mg/dL 8.4-10.2 N CA) BILIRUBIN TOTAL 0.6 mg/dL 0.2-1.3 N "A positive bias may (test code = BILT) occur for patients taking Eltrombo pag(a bone marrow sti mulant used to treat thrombocytopeni a andaplastic ane ezequiel)." BILIRUBIN CONJUGATED 0 mg/dL 0-0.3 N "A posi tive bias may (test code = BILCON) occur f or patients taking Eltrombo pag(a bone marrow sti mulant used to treat thrombocytopeni a andaplastic ane ezequiel)." C ONJUGATE D BILIRUBIN IS THE REPLACEMENT ASS AY FOR DIRECTBILIRUBIN . BILIRUBIN 0.5 mg/dL 0-1.1 N UNCONJUGATED (test code = BILUNC) SGOT/AST (test code 25 U/L 15-46 N = AST) SGPT/ALT (test code 20 U/L 0-34 N = ALT) ALKALINE PHOSPHATASE 98 U/L 38-126 N (test code = ALKP) CBC W/AUTO [id number] 05:59:00 Test Item Value Reference Range Interpretation Comments WHITE BLOOD CELL (test code = 5.4 x10 3/uL 5.0-12.0 N WBC) RED BLOOD CELL (test code = 2.87 x10 6/uL 4.70-6.10 L RBC) HEMOGLOBIN (test code = HGB) 8.7 g/dL 14.0-18.0 L HEMATOCRIT (test code = HCT) 27.2 % 37.0-49.0 L MEAN CELL VOLUME (test code = 95 fL 80-94 H MCV) MEAN CELL HGB (test code = MCH) 30.3 pg 27-31 N MEAN CELL HGB CONCENTRATION 32.0 g/dL 33-37 L (test code = MCHC) RED CELL DISTRIBUTION WIDTH 17.3 % 11.5-15.5 H (test code = RDW) PLATELET COUNT (test code = 268 x10 3/uL 130-400 N PLT) MEAN PLATELET VOLUME (test code 9.8 fL 9.4-16.4 N = MPV) NEUTROPHIL % (test code = NT%) 66.9 % 43-65 H IMMATURE GRANULOCYTE % (test 0.4 % 0.0-2.0 N code = IG%) LYMPHOCYTE % (test code = LY%) 19.9 % 20.5-45.5 L MONOCYTE % (test code = MO%) 10.5 % 5.5-11.7 N EOSINOPHIL % (test code = EO%) 1.7 % 0.9-2.9 N BASOPHIL % (test code = BA%) 0.6 % 0.2-1.0 N NUCLEATED RBC % (test code = 0.0 % 0-1.0 N NRBC%) NEUTROPHIL # (test code = NT#) 3.65 x10 3/uL 2.2-4.8 N IMMATURE GRANULOCYTE # (test 0.02 x10 3/uL 0-0.03 N code = IG#) LYMPHOCYTE # (test code = LY#) 1.08 x10 3/uL 1.3-2.9 L MONOCYTE # (test code = MO#) 0.57 x10 3/uL 0.3-0.8 N EOSINOPHIL # (test code = EO#) 0.09 x10 3/uL 0.0-0.2 N BASOPHIL # (test code = BA#) 0.03 x10 3/uL 0.0-0.1 N [id number] 03:23:00 Test Item Value Reference Range Interpretation Comments GLUBED (test code = GLUBED) 74 MG/DL 74-106 N [id number] 21:03:00 Test Item Value Reference Range Interpretation Comments GLUBED (test code = GLUBED) 79 MG/DL 74-106 N [id number] 12:59:00 Test Item Value Reference Range Interpretation Comments GLUBED (test code = GLUBED) 87 MG/DL 74-106 N [id number] 06:22:00 Test Item Value Reference Range Interpretation Comments GLUBED (test code = GLUBED) 86 MG/DL 74-106 N [id number] 06:22:00 Test Item Value Reference Range Interpretation Comments GLUBED (test code = 47 MG/DL 74-106 LL GLUBED) A VE NOUS SPECIMEN SHOULD BE ORDERED FOR GLU COSE VERIFICATION I F MEDICALLY NECESSARY. [id number] 06:22:00 Test Item Value Reference Range Interpretation Comments GLUBED (test code = GLUBED) 60 MG/DL 74-106 L [id number] 06:21:00 Test Item Value Reference Range Interpretation Comments GLUBED (test code = GLUBED) 61 MG/DL 74-106 L [id number] 06:21:00 Test Item Value Reference Range Interpretation Comments GLUBED (test code = GLUBED) 66 MG/DL 74-106 L COMPREHENSIVE METABOLIC [id number] 02:48:00 Test Item Value Reference Range Interpretation Comments SODIUM (test code = 137 mmol/L 137-145 N NA) POTASSIUM (test code 4.7 mmol/L 3.4-5.0 N = K) CHLORIDE (test code 105 mmol/L 98-107 N = CL) CARBON DIOXIDE (test 20 mmol/L 22-30 L code = CO2) GLUCOSE (test code = 81 mg/dL 74-106 N GLU) BLOOD UREA NITROGEN 34 mg/dL 9-20 H (test code = BUN) GLOMERULAR 143 >60 The estimated FILTRATION RATE glomerular f iltration (test code = GFR) rate is co mputed usingpatient ra ce, age (>18), sex, and serum creatinine. If anyof the needed data elements are mi ssing the Laboratory cannot compute an kevin mation of the glomerul ar filtration rate . CREATININE (test 0.8 mg/dL 0.7-1.3 N code = CREAT) TOTAL PROTEIN (test 8.0 g/dL 6.3-8.2 N code = PROT) " A positive bias m ay occur for patients ta rosario Eltrombopag(a b one marrow stimulan t used to treat thrombocytopeni a andaplastic anemia)." ALBUMIN (test code = 4.1 g/dL 3.5-5.0 N ALB) CALCIUM (test code = 9.3 mg/dL 8.4-10.2 N CA) BILIRUBIN TOTAL 0.6 mg/dL 0.2-1.3 N "A positive bias may (test code = BILT) occur for patients taking Eltrombo pag(a bone marrow sti mulant used to treat thrombocytopeni a andaplastic ane ezequiel)." BILIRUBIN CONJUGATED 0 mg/dL 0-0.3 N "A posi tive bias may (test code = BILCON) occur f or patients taking Eltrombo pag(a bone marrow sti mulant used to treat thrombocytopeni a andaplastic ane ezequiel)." C ONJUGATE D BILIRUBIN IS THE REPLACEMENT ASS AY FOR DIRECTBILIRUBIN . BILIRUBIN 0.2 mg/dL 0-1.1 N UNCONJUGATED (test code = BILUNC) SGOT/AST (test code 46 U/L 15-46 N = AST) SGPT/ALT (test code 23 U/L 0-34 N = ALT) ALKALINE PHOSPHATASE 107 U/L 38-126 N (test code = ALKP) CBC W/AUTO [id number] 02:35:00 Test Item Value Reference Range Interpretation Comments WHITE BLOOD CELL (test code = 7.1 x10 3/uL 5.0-12.0 N WBC) RED BLOOD CELL (test code = 3.09 x10 6/uL 4.70-6.10 L RBC) HEMOGLOBIN (test code = HGB) 9.3 g/dL 14.0-18.0 L HEMATOCRIT (test code = HCT) 29.4 % 37.0-49.0 L MEAN CELL VOLUME (test code = 95 fL 80-94 H MCV) MEAN CELL HGB (test code = MCH) 30.1 pg 27-31 N MEAN CELL HGB CONCENTRATION 31.6 g/dL 33-37 L (test code = MCHC) RED CELL DISTRIBUTION WIDTH 17.6 % 11.5-15.5 H (test code = RDW) PLATELET COUNT (test code = 353 x10 3/uL 130-400 N PLT) MEAN PLATELET VOLUME (test code 9.4 fL 9.4-16.4 N = MPV) NEUTROPHIL % (test code = NT%) 72.4 % 43-65 H IMMATURE GRANULOCYTE % (test 0.6 % 0.0-2.0 N code = IG%) LYMPHOCYTE % (test code = LY%) 17.3 % 20.5-45.5 L MONOCYTE % (test code = MO%) 7.8 % 5.5-11.7 N EOSINOPHIL % (test code = EO%) 1.3 % 0.9-2.9 N BASOPHIL % (test code = BA%) 0.6 % 0.2-1.0 N NUCLEATED RBC % (test code = 0.0 % 0-1.0 N NRBC%) NEUTROPHIL # (test code = NT#) 5.11 x10 3/uL 2.2-4.8 H IMMATURE GRANULOCYTE # (test 0.04 x10 3/uL 0-0.03 H code = IG#) LYMPHOCYTE # (test code = LY#) 1.22 x10 3/uL 1.3-2.9 L MONOCYTE # (test code = MO#) 0.55 x10 3/uL 0.3-0.8 N EOSINOPHIL # (test code = EO#) 0.09 x10 3/uL 0.0-0.2 N BASOPHIL # (test code = BA#) 0.04 x10 3/uL 0.0-0.1 N COMPREHENSIVE METABOLIC [id number] 05:00:00 Test Item Value Reference Range Interpretation Comments SODIUM (test code = 137 mmol/L 137-145 N NA) POTASSIUM (test code 4.3 mmol/L 3.4-5.0 N = K) CHLORIDE (test code 106 mmol/L 98-107 N = CL) CARBON DIOXIDE (test 21 mmol/L 22-30 L code = CO2) GLUCOSE (test code = 84 mg/dL 74-106 N GLU) BLOOD UREA NITROGEN 29 mg/dL 9-20 H (test code = BUN) GLOMERULAR 166 >60 The estimated FILTRATION RATE glomerular f iltration (test code = GFR) rate is co mputed usingpatient ra ce, age (>18), sex, and serum creatinine. If anyof the needed data elements are mi ssing the Laboratory cannot compute an kevin mation of the glomerul ar filtration rate . CREATININE (test 0.7 mg/dL 0.7-1.3 N code = CREAT) TOTAL PROTEIN (test 7.6 g/dL 6.3-8.2 N code = PROT) " A positive bias m ay occur for patients ta rosario Eltrombopag(a b one marrow stimulan t used to treat thrombocytopeni a andaplastic anemia)." ALBUMIN (test code = 3.8 g/dL 3.5-5.0 N ALB) CALCIUM (test code = 8.9 mg/dL 8.4-10.2 N CA) BILIRUBIN TOTAL 0.5 mg/dL 0.2-1.3 N "A positive bias may (test code = BILT) occur for patients taking Eltrombo pag(a bone marrow sti mulant used to treat thrombocytopeni a andaplastic ane ezequiel)." BILIRUBIN CONJUGATED 0 mg/dL 0-0.3 N "A posi tive bias may (test code = BILCON) occur f or patients taking Eltrombo pag(a bone marrow sti mulant used to treat thrombocytopeni a andaplastic ane ezequiel)." C ONJUGATE D BILIRUBIN IS THE REPLACEMENT ASS AY FOR DIRECTBILIRUBIN . BILIRUBIN 0.2 mg/dL 0-1.1 N UNCONJUGATED (test code = BILUNC) SGOT/AST (test code 28 U/L 15-46 N = AST) SGPT/ALT (test code 22 U/L 0-34 N = ALT) ALKALINE PHOSPHATASE 97 U/L 38-126 N (test code = ALKP) CBC W/AUTO [id number] 04:13:00 Test Item Value Reference Range Interpretation Comments WHITE BLOOD CELL (test code = 5.4 x10 3/uL 5.0-12.0 N WBC) RED BLOOD CELL (test code = 2.93 x10 6/uL 4.70-6.10 L RBC) HEMOGLOBIN (test code = HGB) 8.8 g/dL 14.0-18.0 L HEMATOCRIT (test code = HCT) 27.5 % 37.0-49.0 L MEAN CELL VOLUME (test code = 94 fL 80-94 N MCV) MEAN CELL HGB (test code = MCH) 30.0 pg 27-31 N MEAN CELL HGB CONCENTRATION 32.0 g/dL 33-37 L (test code = MCHC) RED CELL DISTRIBUTION WIDTH 17.5 % 11.5-15.5 H (test code = RDW) PLATELET COUNT (test code = 337 x10 3/uL 130-400 N PLT) MEAN PLATELET VOLUME (test code 9.2 fL 9.4-16.4 L = MPV) NEUTROPHIL % (test code = NT%) 69.2 % 43-65 H IMMATURE GRANULOCYTE % (test 0.4 % 0.0-2.0 N code = IG%) LYMPHOCYTE % (test code = LY%) 19.4 % 20.5-45.5 L MONOCYTE % (test code = MO%) 8.8 % 5.5-11.7 N EOSINOPHIL % (test code = EO%) 1.3 % 0.9-2.9 N BASOPHIL % (test code = BA%) 0.9 % 0.2-1.0 N NUCLEATED RBC % (test code = 0.0 % 0-1.0 N NRBC%) NEUTROPHIL # (test code = NT#) 3.72 x10 3/uL 2.2-4.8 N IMMATURE GRANULOCYTE # (test 0.02 x10 3/uL 0-0.03 N code = IG#) LYMPHOCYTE # (test code = LY#) 1.04 x10 3/uL 1.3-2.9 L MONOCYTE # (test code = MO#) 0.47 x10 3/uL 0.3-0.8 N EOSINOPHIL # (test code = EO#) 0.07 x10 3/uL 0.0-0.2 N BASOPHIL # (test code = BA#) 0.05 x10 3/uL 0.0-0.1 N [id number] 17:21:00 Test Item Value Reference Range Interpretation Comments GLUBED (test code = GLUBED) 88 MG/DL 74-106 N [id number] 13:01:00 Test Item Value Reference Range Interpretation Comments GLUBED (test code = GLUBED) 85 MG/DL 74-106 N COMPREHENSIVE METABOLIC [id number] 05:40:00 Test Item Value Reference Range Interpretation Comments SODIUM (test code = 137 mmol/L 137-145 N NA) POTASSIUM (test code 4.7 mmol/L 3.4-5.0 N = K) CHLORIDE (test code 104 mmol/L 98-107 N = CL) CARBON DIOXIDE (test 23 mmol/L 22-30 N code = CO2) GLUCOSE (test code = 77 mg/dL 74-106 N GLU) BLOOD UREA NITROGEN 29 mg/dL 9-20 H (test code = BUN) GLOMERULAR 166 >60 The estimated FILTRATION RATE glomerular f iltration (test code = GFR) rate is co mputed usingpatient ra ce, age (>18), sex, and serum creatinine. If anyof the needed data elements are mi ssing the Laboratory cannot compute an kevin mation of the glomerul ar filtration rate . CREATININE (test 0.7 mg/dL 0.7-1.3 N code = CREAT) TOTAL PROTEIN (test 7.3 g/dL 6.3-8.2 N code = PROT) " A positive bias m ay occur for patients ta rosario Eltrombopag(a b one marrow stimulan t used to treat thrombocytopeni a andaplastic anemia)." ALBUMIN (test code = 3.8 g/dL 3.5-5.0 N ALB) CALCIUM (test code = 9.1 mg/dL 8.4-10.2 N CA) BILIRUBIN TOTAL 0.6 mg/dL 0.2-1.3 N "A positive bias may (test code = BILT) occur for patients taking Eltrombo pag(a bone marrow sti mulant used to treat thrombocytopeni a andaplastic ane ezequiel)." BILIRUBIN CONJUGATED 0 mg/dL 0-0.3 N "A posi tive bias may (test code = BILCON) occur f or patients taking Eltrombo pag(a bone marrow sti mulant used to treat thrombocytopeni a andaplastic ane ezequiel)." C ONJUGATE D BILIRUBIN IS THE REPLACEMENT ASS AY FOR DIRECTBILIRUBIN . BILIRUBIN 0.5 mg/dL 0-1.1 N UNCONJUGATED (test code = BILUNC) SGOT/AST (test code 29 U/L 15-46 N = AST) SGPT/ALT (test code 24 U/L 0-34 N = ALT) ALKALINE PHOSPHATASE 94 U/L 38-126 N (test code = ALKP) CBC W/AUTO [id number] 05:21:00 Test Item Value Reference Range Interpretation Comments WHITE BLOOD CELL (test code = 6.3 x10 3/uL 5.0-12.0 N WBC) RED BLOOD CELL (test code = 2.77 x10 6/uL 4.70-6.10 L RBC) HEMOGLOBIN (test code = HGB) 8.5 g/dL 14.0-18.0 L HEMATOCRIT (test code = HCT) 26.6 % 37.0-49.0 L MEAN CELL VOLUME (test code = 96 fL 80-94 H MCV) MEAN CELL HGB (test code = MCH) 30.7 pg 27-31 N MEAN CELL HGB CONCENTRATION 32.0 g/dL 33-37 L (test code = MCHC) RED CELL DISTRIBUTION WIDTH 17.5 % 11.5-15.5 H (test code = RDW) PLATELET COUNT (test code = 338 x10 3/uL 130-400 N PLT) MEAN PLATELET VOLUME (test code 9.4 fL 9.4-16.4 N = MPV) NEUTROPHIL % (test code = NT%) 70.1 % 43-65 H IMMATURE GRANULOCYTE % (test 0.5 % 0.0-2.0 N code = IG%) LYMPHOCYTE % (test code = LY%) 18.7 % 20.5-45.5 L MONOCYTE % (test code = MO%) 9.1 % 5.5-11.7 N EOSINOPHIL % (test code = EO%) 1.0 % 0.9-2.9 N BASOPHIL % (test code = BA%) 0.6 % 0.2-1.0 N NUCLEATED RBC % (test code = 0.0 % 0-1.0 N NRBC%) NEUTROPHIL # (test code = NT#) 4.39 x10 3/uL 2.2-4.8 N IMMATURE GRANULOCYTE # (test 0.03 x10 3/uL 0-0.03 N code = IG#) LYMPHOCYTE # (test code = LY#) 1.17 x10 3/uL 1.3-2.9 L MONOCYTE # (test code = MO#) 0.57 x10 3/uL 0.3-0.8 N EOSINOPHIL # (test code = EO#) 0.06 x10 3/uL 0.0-0.2 N BASOPHIL # (test code = BA#) 0.04 x10 3/uL 0.0-0.1 N [id number] 17:46:00 Test Item Value Reference Range Interpretation Comments GLUBED (test code = GLUBED) 97 MG/DL 74-106 N [id number] 12:45:00 Test Item Value Reference Range Interpretation Comments GLUBED (test code = GLUBED) 102 MG/DL 74-106 N [id number] 04:54:00 Test Item Value Reference Range Interpretation Comments GLUBED (test code = GLUBED) 83 MG/DL 74-106 N COMPREHENSIVE METABOLIC [id number] 03:19:00 Test Item Value Reference Range Interpretation Comments SODIUM (test code = 135 mmol/L 137-145 L NA) POTASSIUM (test code 5.1 mmol/L 3.4-5.0 H IS THE SAMPLE = K) HEMOLYZED?:SONU MOLYSIS GRADE:NO CHLORIDE (test code 102 mmol/L 98-107 N = CL) CARBON DIOXIDE (test 21 mmol/L 22-30 L code = CO2) GLUCOSE (test code = 69 mg/dL 74-106 L GLU) BLOOD UREA NITROGEN 26 mg/dL 9-20 H (test code = BUN) GLOMERULAR 166 >60 The estimated FILTRATION RATE glomerular f iltration (test code = GFR) rate is co mputed usingpatient ra ce, age (>18), sex, and serum creatinine. If anyof the needed data elements are mi ssing the Laboratory cannot compute an kevin mation of the glomerul ar filtration rate . CREATININE (test 0.7 mg/dL 0.7-1.3 N code = CREAT) TOTAL PROTEIN (test 8.0 g/dL 6.3-8.2 N code = PROT) " A positive bias m ay occur for patients ta rosario Eltrombopag(a b one marrow stimulan t used to treat thrombocytopeni a andaplastic anemia)." ALBUMIN (test code = 4.0 g/dL 3.5-5.0 N ALB) CALCIUM (test code = 9.1 mg/dL 8.4-10.2 N CA) BILIRUBIN TOTAL 0.6 mg/dL 0.2-1.3 N "A positive bias may (test code = BILT) occur for patients taking Eltrombo pag(a bone marrow sti mulant used to treat thrombocytopeni a andaplastic ane ezequiel)." BILIRUBIN CONJUGATED 0 mg/dL 0-0.3 N "A posi tive bias may (test code = BILCON) occur f or patients taking Eltrombo pag(a bone marrow sti mulant used to treat thrombocytopeni a andaplastic ane ezequiel)." C ONJUGATE D BILIRUBIN IS THE REPLACEMENT ASS AY FOR DIRECTBILIRUBIN . BILIRUBIN 0.2 mg/dL 0-1.1 N UNCONJUGATED (test code = BILUNC) SGOT/AST (test code 28 U/L 15-46 N = AST) SGPT/ALT (test code 27 U/L 0-34 N = ALT) ALKALINE PHOSPHATASE 113 U/L 38-126 N (test code = ALKP) CBC W/AUTO [id number] 02:53:00 Test Item Value Reference Range Interpretation Comments WHITE BLOOD CELL (test code = 6.4 x10 3/uL 5.0-12.0 N WBC) RED BLOOD CELL (test code = 2.86 x10 6/uL 4.70-6.10 L RBC) HEMOGLOBIN (test code = HGB) 8.5 g/dL 14.0-18.0 L HEMATOCRIT (test code = HCT) 27.4 % 37.0-49.0 L MEAN CELL VOLUME (test code = 96 fL 80-94 H MCV) MEAN CELL HGB (test code = MCH) 29.7 pg 27-31 N MEAN CELL HGB CONCENTRATION 31.0 g/dL 33-37 L (test code = MCHC) RED CELL DISTRIBUTION WIDTH 17.6 % 11.5-15.5 H (test code = RDW) PLATELET COUNT (test code = 351 x10 3/uL 130-400 N PLT) MEAN PLATELET VOLUME (test code 9.4 fL 9.4-16.4 N = MPV) NEUTROPHIL % (test code = NT%) 71.6 % 43-65 H IMMATURE GRANULOCYTE % (test 0.9 % 0.0-2.0 N code = IG%) LYMPHOCYTE % (test code = LY%) 17.4 % 20.5-45.5 L MONOCYTE % (test code = MO%) 8.1 % 5.5-11.7 N EOSINOPHIL % (test code = EO%) 1.2 % 0.9-2.9 N BASOPHIL % (test code = BA%) 0.8 % 0.2-1.0 N NUCLEATED RBC % (test code = 0.0 % 0-1.0 N NRBC%) NEUTROPHIL # (test code = NT#) 4.59 x10 3/uL 2.2-4.8 N IMMATURE GRANULOCYTE # (test 0.06 x10 3/uL 0-0.03 H code = IG#) LYMPHOCYTE # (test code = LY#) 1.12 x10 3/uL 1.3-2.9 L MONOCYTE # (test code = MO#) 0.52 x10 3/uL 0.3-0.8 N EOSINOPHIL # (test code = EO#) 0.08 x10 3/uL 0.0-0.2 N BASOPHIL # (test code = BA#) 0.05 x10 3/uL 0.0-0.1 N [id number] 12:56:00 Test Item Value Reference Range Interpretation Comments POTASSIUM (test code = K) 4.7 mmol/L 3.4-5.0 N COMPREHENSIVE METABOLIC [id number] 05:22:00 Test Item Value Reference Range Interpretation Comments SODIUM (test code = 135 mmol/L 137-145 L NA) POTASSIUM (test code 6.0 mmol/L 3.4-5.0 H IS THE SAMPLE = K) HEMOLYZED?:YHEM OLYSIS GRADE:2+ CHLORIDE (test code 102 mmol/L 98-107 N = CL) CARBON DIOXIDE (test 21 mmol/L 22-30 L code = CO2) GLUCOSE (test code = 93 mg/dL 74-106 N GLU) BLOOD UREA NITROGEN 30 mg/dL 9-20 H (test code = BUN) GLOMERULAR 166 >60 The estimated FILTRATION RATE glomerular f iltration (test code = GFR) rate is co mputed usingpatient ra ce, age (>18), sex, and serum creatinine. If anyof the needed data elements are mi ssing the Laboratory cannot compute an kevin mation of the glomerul ar filtration rate . CREATININE (test 0.7 mg/dL 0.7-1.3 N code = CREAT) TOTAL PROTEIN (test 8.1 g/dL 6.3-8.2 N code = PROT) " A positive bias m ay occur for patients ta rosario Eltrombopag(a b one marrow stimulan t used to treat thrombocytopeni a andaplastic anemia)." ALBUMIN (test code = 4.0 g/dL 3.5-5.0 N ALB) CALCIUM (test code = 9.5 mg/dL 8.4-10.2 N CA) BILIRUBIN TOTAL 1.0 mg/dL 0.2-1.3 N "A positive bias may (test code = BILT) occur for patients taking Eltrombo pag(a bone marrow sti mulant used to treat thrombocytopeni a andaplastic ane ezequiel)." BILIRUBIN CONJUGATED 0 mg/dL 0-0.3 N "A posi tive bias may (test code = BILCON) occur f or patients taking Eltrombo pag(a bone marrow sti mulant used to treat thrombocytopeni a andaplastic ane ezequiel)." C ONJUGATE D BILIRUBIN IS THE REPLACEMENT ASS AY FOR DIRECTBILIRUBIN . BILIRUBIN 0.5 mg/dL 0-1.1 N UNCONJUGATED (test code = BILUNC) SGOT/AST (test code 55 U/L 15-46 H = AST) SGPT/ALT (test code 33 U/L 0-34 N = ALT) ALKALINE PHOSPHATASE 93 U/L 38-126 N (test code = ALKP) CBC W/AUTO [id number] 04:39:00 Test Item Value Reference Range Interpretation Comments WHITE BLOOD CELL (test code = 6.7 x10 3/uL 5.0-12.0 N WBC) RED BLOOD CELL (test code = 3.04 x10 6/uL 4.70-6.10 L RBC) HEMOGLOBIN (test code = HGB) 9.1 g/dL 14.0-18.0 L HEMATOCRIT (test code = HCT) 28.6 % 37.0-49.0 L MEAN CELL VOLUME (test code = 94 fL 80-94 N MCV) MEAN CELL HGB (test code = MCH) 29.9 pg 27-31 N MEAN CELL HGB CONCENTRATION 31.8 g/dL 33-37 L (test code = MCHC) RED CELL DISTRIBUTION WIDTH 17.7 % 11.5-15.5 H (test code = RDW) PLATELET COUNT (test code = 372 x10 3/uL 130-400 N PLT) MEAN PLATELET VOLUME (test code 9.5 fL 9.4-16.4 N = MPV) NEUTROPHIL % (test code = NT%) 71.5 % 43-65 H IMMATURE GRANULOCYTE % (test 0.9 % 0.0-2.0 N code = IG%) LYMPHOCYTE % (test code = LY%) 18.1 % 20.5-45.5 L MONOCYTE % (test code = MO%) 7.9 % 5.5-11.7 N EOSINOPHIL % (test code = EO%) 0.7 % 0.9-2.9 L BASOPHIL % (test code = BA%) 0.9 % 0.2-1.0 N NUCLEATED RBC % (test code = 0.0 % 0-1.0 N NRBC%) NEUTROPHIL # (test code = NT#) 4.81 x10 3/uL 2.2-4.8 H IMMATURE GRANULOCYTE # (test 0.06 x10 3/uL 0-0.03 H code = IG#) LYMPHOCYTE # (test code = LY#) 1.22 x10 3/uL 1.3-2.9 L MONOCYTE # (test code = MO#) 0.53 x10 3/uL 0.3-0.8 N EOSINOPHIL # (test code = EO#) 0.05 x10 3/uL 0.0-0.2 N BASOPHIL # (test code = BA#) 0.06 x10 3/uL 0.0-0.1 N COMPREHENSIVE METABOLIC [id number] 04:36:00 Test Item Value Reference Range Interpretation Comments SODIUM (test code = 136 mmol/L 137-145 L NA) POTASSIUM (test code 5.3 mmol/L 3.4-5.0 H IS THE SAMPLE = K) HEMOLYZED?: YESHEMOLYSIS GR LORELEI: 1 CHLORIDE (test code 105 mmol/L 98-107 N = CL) CARBON DIOXIDE (test 21 mmol/L 22-30 L code = CO2) GLUCOSE (test code = 96 mg/dL 74-106 N GLU) BLOOD UREA NITROGEN 26 mg/dL 9-20 H (test code = BUN) GLOMERULAR 166 >60 The estimated FILTRATION RATE glomerular f iltration (test code = GFR) rate is co mputed usingpatient ra ce, age (>18), sex, and serum creatinine. If anyof the needed data elements are mi ssing the Laboratory cannot compute an kevin mation of the glomerul ar filtration rate . CREATININE (test 0.7 mg/dL 0.7-1.3 N code = CREAT) TOTAL PROTEIN (test 7.3 g/dL 6.3-8.2 N code = PROT) " A positive bias m ay occur for patients ta rosario Eltrombopag(a b one marrow stimulan t used to treat thrombocytopeni a andaplastic anemia)." ALBUMIN (test code = 3.8 g/dL 3.5-5.0 N ALB) CALCIUM (test code = 9.1 mg/dL 8.4-10.2 N CA) BILIRUBIN TOTAL 0.6 mg/dL 0.2-1.3 N "A positive bias may (test code = BILT) occur for patients taking Eltrombo pag(a bone marrow sti mulant used to treat thrombocytopeni a andaplastic ane ezequiel)." BILIRUBIN CONJUGATED 0 mg/dL 0-0.3 N "A posi tive bias may (test code = BILCON) occur f or patients taking Eltrombo pag(a bone marrow sti mulant used to treat thrombocytopeni a andaplastic ane ezequiel)." C ONJUGATE D BILIRUBIN IS THE REPLACEMENT ASS AY FOR DIRECTBILIRUBIN . BILIRUBIN 0.4 mg/dL 0-1.1 N UNCONJUGATED (test code = BILUNC) SGOT/AST (test code 54 U/L 15-46 H = AST) SGPT/ALT (test code 35 U/L 0-34 H = ALT) ALKALINE PHOSPHATASE 97 U/L 38-126 N (test code = ALKP) CBC W/AUTO [id number] 03:46:00 Test Item Value Reference Range Interpretation Comments WHITE BLOOD CELL (test code = 7.0 x10 3/uL 5.0-12.0 N WBC) RED BLOOD CELL (test code = 2.69 x10 6/uL 4.70-6.10 L RBC) HEMOGLOBIN (test code = HGB) 8.1 g/dL 14.0-18.0 L HEMATOCRIT (test code = HCT) 25.5 % 37.0-49.0 L MEAN CELL VOLUME (test code = 95 fL 80-94 H MCV) MEAN CELL HGB (test code = MCH) 30.1 pg 27-31 N MEAN CELL HGB CONCENTRATION 31.8 g/dL 33-37 L (test code = MCHC) RED CELL DISTRIBUTION WIDTH 18.2 % 11.5-15.5 H (test code = RDW) PLATELET COUNT (test code = 386 x10 3/uL 130-400 N PLT) MEAN PLATELET VOLUME (test code 9.6 fL 9.4-16.4 N = MPV) NEUTROPHIL % (test code = NT%) 74.7 % 43-65 H IMMATURE GRANULOCYTE % (test 1.0 % 0.0-2.0 N code = IG%) LYMPHOCYTE % (test code = LY%) 14.1 % 20.5-45.5 L MONOCYTE % (test code = MO%) 8.6 % 5.5-11.7 N EOSINOPHIL % (test code = EO%) 1.0 % 0.9-2.9 N BASOPHIL % (test code = BA%) 0.6 % 0.2-1.0 N NUCLEATED RBC % (test code = 0.0 % 0-1.0 N NRBC%) NEUTROPHIL # (test code = NT#) 5.21 x10 3/uL 2.2-4.8 H IMMATURE GRANULOCYTE # (test 0.07 x10 3/uL 0-0.03 H code = IG#) LYMPHOCYTE # (test code = LY#) 0.98 x10 3/uL 1.3-2.9 L MONOCYTE # (test code = MO#) 0.60 x10 3/uL 0.3-0.8 N EOSINOPHIL # (test code = EO#) 0.07 x10 3/uL 0.0-0.2 N BASOPHIL # (test code = BA#) 0.04 x10 3/uL 0.0-0.1 N COMPREHENSIVE METABOLIC [id number] 17:56:00 Test Item Value Reference Range Interpretation Comments SODIUM (test code = 134 mmol/L 137-145 L NA) POTASSIUM (test code 5.0 mmol/L 3.4-5.0 N = K) CHLORIDE (test code 101 mmol/L 98-107 N = CL) CARBON DIOXIDE (test 24 mmol/L 22-30 N code = CO2) GLUCOSE (test code = 85 mg/dL 74-106 N GLU) BLOOD UREA NITROGEN 24 mg/dL 9-20 H (test code = BUN) GLOMERULAR 166 >60 The estimated FILTRATION RATE glomerular f iltration (test code = GFR) rate is co mputed usingpatient ra ce, age (>18), sex, and serum creatinine. If anyof the needed data elements are mi ssing the Laboratory cannot compute an kevin mation of the glomerul ar filtration rate . CREATININE (test 0.7 mg/dL 0.7-1.3 N code = CREAT) TOTAL PROTEIN (test 7.1 g/dL 6.3-8.2 N code = PROT) " A positive bias m ay occur for patients ta rosario Eltrombopag(a b one marrow stimulan t used to treat thrombocytopeni a andaplastic anemia)." ALBUMIN (test code = 3.7 g/dL 3.5-5.0 N ALB) CALCIUM (test code = 9.1 mg/dL 8.4-10.2 N CA) BILIRUBIN TOTAL 0.5 mg/dL 0.2-1.3 N "A positive bias may (test code = BILT) occur for patients taking Eltrombo pag(a bone marrow sti mulant used to treat thrombocytopeni a andaplastic ane ezequiel)." BILIRUBIN CONJUGATED 0 mg/dL 0-0.3 N "A posi tive bias may (test code = BILCON) occur f or patients taking Eltrombo pag(a bone marrow sti mulant used to treat thrombocytopeni a andaplastic ane ezequiel)." C ONJUGATE D BILIRUBIN IS THE REPLACEMENT ASS AY FOR DIRECTBILIRUBIN . BILIRUBIN 0.4 mg/dL 0-1.1 N UNCONJUGATED (test code = BILUNC) SGOT/AST (test code 33 U/L 15-46 N = AST) SGPT/ALT (test code 41 U/L 0-34 H = ALT) ALKALINE PHOSPHATASE 116 U/L 38-126 N (test code = ALKP) COMPREHENSIVE METABOLIC [id number] 17:55:00 Test Item Value Reference Range Interpretation Comments SODIUM (test code = 134 mmol/L 137-145 L NA) POTASSIUM (test code 5.0 mmol/L 3.4-5.0 N = K) CHLORIDE (test code 101 mmol/L 98-107 N = CL) CARBON DIOXIDE (test 24 mmol/L 22-30 N code = CO2) GLUCOSE (test code = 85 mg/dL 74-106 N GLU) BLOOD UREA NITROGEN 24 mg/dL 9-20 H (test code = BUN) GLOMERULAR 166 >60 The estimated FILTRATION RATE glomerular f iltration (test code = GFR) rate is co mputed usingpatient ra ce, age (>18), sex, and serum creatinine. If anyof the needed data elements are mi ssing the Laboratory cannot compute an kevin mation of the glomerul ar filtration rate . CREATININE (test 0.7 mg/dL 0.7-1.3 N code = CREAT) TOTAL PROTEIN (test 7.1 g/dL 6.3-8.2 N code = PROT) " A positive bias m ay occur for patients ta rosario Eltrombopag(a b one marrow stimulan t used to treat thrombocytopeni a andaplastic anemia)." ALBUMIN (test code = 3.7 g/dL 3.5-5.0 N ALB) CALCIUM (test code = 9.1 mg/dL 8.4-10.2 N CA) BILIRUBIN TOTAL 0.5 mg/dL 0.2-1.3 N "A positive bias may (test code = BILT) occur for patients taking Eltrombo pag(a bone marrow sti mulant used to treat thrombocytopeni a andaplastic ane ezequiel)." BILIRUBIN CONJUGATED 0 mg/dL 0-0.3 N "A posi tive bias may (test code = BILCON) occur f or patients taking Eltrombo pag(a bone marrow sti mulant used to treat thrombocytopeni a andaplastic ane ezequiel)." C ONJUGATE D BILIRUBIN IS THE REPLACEMENT ASS AY FOR DIRECTBILIRUBIN . BILIRUBIN 0.4 mg/dL 0-1.1 N UNCONJUGATED (test code = BILUNC) SGOT/AST (test code 33 U/L 15-46 N = AST) SGPT/ALT (test code U/L 0-34 = ALT) ALKALINE PHOSPHATASE 116 U/L 38-126 N (test code = ALKP) CBC W/AUTO [id number] 17:28:00 Test Item Value Reference Range Interpretation Comments WHITE BLOOD CELL (test code = 7.4 x10 3/uL 5.0-12.0 N WBC) RED BLOOD CELL (test code = 2.74 x10 6/uL 4.70-6.10 L RBC) HEMOGLOBIN (test code = HGB) 8.1 g/dL 14.0-18.0 L HEMATOCRIT (test code = HCT) 25.8 % 37.0-49.0 L MEAN CELL VOLUME (test code = 94 fL 80-94 N MCV) MEAN CELL HGB (test code = MCH) 29.6 pg 27-31 N MEAN CELL HGB CONCENTRATION 31.4 g/dL 33-37 L (test code = MCHC) RED CELL DISTRIBUTION WIDTH 18.2 % 11.5-15.5 H (test code = RDW) PLATELET COUNT (test code = 367 x10 3/uL 130-400 N PLT) MEAN PLATELET VOLUME (test code 9.4 fL 9.4-16.4 N = MPV) NEUTROPHIL % (test code = NT%) 75.1 % 43-65 H IMMATURE GRANULOCYTE % (test 0.8 % 0.0-2.0 N code = IG%) LYMPHOCYTE % (test code = LY%) 14.3 % 20.5-45.5 L MONOCYTE % (test code = MO%) 8.3 % 5.5-11.7 N EOSINOPHIL % (test code = EO%) 0.8 % 0.9-2.9 L BASOPHIL % (test code = BA%) 0.7 % 0.2-1.0 N NUCLEATED RBC % (test code = 0.0 % 0-1.0 N NRBC%) NEUTROPHIL # (test code = NT#) 5.53 x10 3/uL 2.2-4.8 H IMMATURE GRANULOCYTE # (test 0.06 x10 3/uL 0-0.03 H code = IG#) LYMPHOCYTE # (test code = LY#) 1.05 x10 3/uL 1.3-2.9 L MONOCYTE # (test code = MO#) 0.61 x10 3/uL 0.3-0.8 N EOSINOPHIL # (test code = EO#) 0.06 x10 3/uL 0.0-0.2 N BASOPHIL # (test code = BA#) 0.05 x10 3/uL 0.0-0.1 N COMPREHENSIVE METABOLIC [id number] 06:20:00 Test Item Value Reference Range Interpretation Comments SODIUM (test code = 138 mmol/L 137-145 N NA) POTASSIUM (test code 5.0 mmol/L 3.4-5.0 N = K) CHLORIDE (test code 104 mmol/L 98-107 N = CL) CARBON DIOXIDE (test 26 mmol/L 22-30 N code = CO2) GLUCOSE (test code = 90 mg/dL 74-106 N GLU) BLOOD UREA NITROGEN 21 mg/dL 9-20 H (test code = BUN) GLOMERULAR 143 >60 The estimated FILTRATION RATE glomerular f iltration (test code = GFR) rate is co mputed usingpatient ra ce, age (>18), sex, and serum creatinine. If anyof the needed data elements are mi ssing the Laboratory cannot compute an kevin mation of the glomerul ar filtration rate . CREATININE (test 0.8 mg/dL 0.7-1.3 N code = CREAT) TOTAL PROTEIN (test 7.1 g/dL 6.3-8.2 N code = PROT) " A positive bias m ay occur for patients ta rosario Eltrombopag(a b one marrow stimulan t used to treat thrombocytopeni a andaplastic anemia)." ALBUMIN (test code = 3.6 g/dL 3.5-5.0 N ALB) CALCIUM (test code = 9.0 mg/dL 8.4-10.2 N CA) BILIRUBIN TOTAL 0.6 mg/dL 0.2-1.3 N "A positive bias may (test code = BILT) occur for patients taking Eltrombo pag(a bone marrow sti mulant used to treat thrombocytopeni a andaplastic ane ezequiel)." BILIRUBIN CONJUGATED 0 mg/dL 0-0.3 N "A posi tive bias may (test code = BILCON) occur f or patients taking Eltrombo pag(a bone marrow sti mulant used to treat thrombocytopeni a andaplastic ane ezequiel)." C ONJUGATE D BILIRUBIN IS THE REPLACEMENT ASS AY FOR DIRECTBILIRUBIN . BILIRUBIN 0.5 mg/dL 0-1.1 N UNCONJUGATED (test code = BILUNC) SGOT/AST (test code 48 U/L 15-46 H = AST) SGPT/ALT (test code U/L 0-34 = ALT) ALKALINE PHOSPHATASE 115 U/L 38-126 N (test code = ALKP) COMPREHENSIVE METABOLIC [id number] 06:20:00 Test Item Value Reference Range Interpretation Comments SODIUM (test code = 138 mmol/L 137-145 N NA) POTASSIUM (test code 5.0 mmol/L 3.4-5.0 N = K) CHLORIDE (test code 104 mmol/L 98-107 N = CL) CARBON DIOXIDE (test 26 mmol/L 22-30 N code = CO2) GLUCOSE (test code = 90 mg/dL 74-106 N GLU) BLOOD UREA NITROGEN 21 mg/dL 9-20 H (test code = BUN) GLOMERULAR 143 >60 The estimated FILTRATION RATE glomerular f iltration (test code = GFR) rate is co mputed usingpatient ra ce, age (>18), sex, and serum creatinine. If anyof the needed data elements are mi ssing the Laboratory cannot compute an kevin mation of the glomerul ar filtration rate . CREATININE (test 0.8 mg/dL 0.7-1.3 N code = CREAT) TOTAL PROTEIN (test 7.1 g/dL 6.3-8.2 N code = PROT) " A positive bias m ay occur for patients ta rosario Eltrombopag(a b one marrow stimulan t used to treat thrombocytopeni a andaplastic anemia)." ALBUMIN (test code = 3.6 g/dL 3.5-5.0 N ALB) CALCIUM (test code = 9.0 mg/dL 8.4-10.2 N CA) BILIRUBIN TOTAL 0.6 mg/dL 0.2-1.3 N "A positive bias may (test code = BILT) occur for patients taking Eltrombo pag(a bone marrow sti mulant used to treat thrombocytopeni a andaplastic ane ezequiel)." BILIRUBIN CONJUGATED 0 mg/dL 0-0.3 N "A posi tive bias may (test code = BILCON) occur f or patients taking Eltrombo pag(a bone marrow sti mulant used to treat thrombocytopeni a andaplastic ane ezequiel)." C ONJUGATE D BILIRUBIN IS THE REPLACEMENT ASS AY FOR DIRECTBILIRUBIN . BILIRUBIN 0.5 mg/dL 0-1.1 N UNCONJUGATED (test code = BILUNC) SGOT/AST (test code 48 U/L 15-46 H = AST) SGPT/ALT (test code 56 U/L 0-34 H = ALT) ALKALINE PHOSPHATASE 115 U/L 38-126 N (test code = ALKP) CBC W/AUTO [id number] 06:00:00 Test Item Value Reference Range Interpretation Comments WHITE BLOOD CELL (test code = 6.2 x10 3/uL 5.0-12.0 N WBC) RED BLOOD CELL (test code = 2.79 x10 6/uL 4.70-6.10 L RBC) HEMOGLOBIN (test code = HGB) 8.4 g/dL 14.0-18.0 L HEMATOCRIT (test code = HCT) 26.1 % 37.0-49.0 L MEAN CELL VOLUME (test code = 94 fL 80-94 N MCV) MEAN CELL HGB (test code = MCH) 30.1 pg 27-31 N MEAN CELL HGB CONCENTRATION 32.2 g/dL 33-37 L (test code = MCHC) RED CELL DISTRIBUTION WIDTH 18.4 % 11.5-15.5 H (test code = RDW) PLATELET COUNT (test code = 365 x10 3/uL 130-400 N PLT) MEAN PLATELET VOLUME (test code 9.4 fL 9.4-16.4 N = MPV) NEUTROPHIL % (test code = NT%) 76.6 % 43-65 H IMMATURE GRANULOCYTE % (test 1.4 % 0.0-2.0 N code = IG%) LYMPHOCYTE % (test code = LY%) 12.6 % 20.5-45.5 L MONOCYTE % (test code = MO%) 7.6 % 5.5-11.7 N EOSINOPHIL % (test code = EO%) 1.3 % 0.9-2.9 N BASOPHIL % (test code = BA%) 0.5 % 0.2-1.0 N NUCLEATED RBC % (test code = 0.0 % 0-1.0 N NRBC%) NEUTROPHIL # (test code = NT#) 4.76 x10 3/uL 2.2-4.8 N IMMATURE GRANULOCYTE # (test 0.09 x10 3/uL 0-0.03 H code = IG#) LYMPHOCYTE # (test code = LY#) 0.78 x10 3/uL 1.3-2.9 L MONOCYTE # (test code = MO#) 0.47 x10 3/uL 0.3-0.8 N EOSINOPHIL # (test code = EO#) 0.08 x10 3/uL 0.0-0.2 N BASOPHIL # (test code = BA#) 0.03 x10 3/uL 0.0-0.1 N PROTHROMBIN [id number] 09:06:00 Test Item Value Reference Range Interpretation Comments PROTHROMBIN TIME 14.6 SECONDS 9.2-12.1 H PATIENT (test code = PTP) INTERNATIONAL NORMAL 1.3 The INR is to be used RATIO (test code = only for monitoring INR) ORAL ANTICOAGULANTTH ERAPY. Indication INR Value1. Prophylaxis/jaxon atment of: Venous Thro mbosis, Pulmonary Embol ism 2.0 - 3.02. Prevent ion of systemic emboli sm from: Tissue he art valves 2.0 - 3. 0 Acute myocardial infa rction (to present sys temic embolism)* 2.0 - 3.0 Valvular heart disease 2.0 - 3.0 Atria l fibrillation 2. 0 - 3.03. Mechanica l prosthetic valv es (high risk) 2.5 - 3.5 * If oral anticoagulant t herapy is elected to preventrecurren t myocardial infa rction, an INR of 2.5-3 .5 isrecommended, consistent with Food and Drug Administrationr ecommen dations. IS PATIENT ON ANTICOAGULANTS ? YESLIST ANTICOAGULANT/ANTI PLT MEDICATION: Heparin (SQ)COMPREHENSIVE METABOLIC [id number] 04:49:00 Test Item Value Reference Range Interpretation Comments SODIUM (test code = 136 mmol/L 137-145 L NA) POTASSIUM (test code 5.1 mmol/L 3.4-5.0 H IS THE SAMPLE = K) HEMOLYZED?:SONU MOLYSIS GRADE:NO CHLORIDE (test code 103 mmol/L 98-107 N = CL) CARBON DIOXIDE (test 25 mmol/L 22-30 N code = CO2) GLUCOSE (test code = 85 mg/dL 74-106 N GLU) BLOOD UREA NITROGEN 22 mg/dL 9-20 H (test code = BUN) GLOMERULAR 143 >60 The estimated FILTRATION RATE glomerular f iltration (test code = GFR) rate is co mputed usingpatient ra ce, age (>18), sex, and serum creatinine. If anyof the needed data elements are mi ssing the Laboratory cannot compute an kevin mation of the glomerul ar filtration rate . CREATININE (test 0.8 mg/dL 0.7-1.3 N code = CREAT) TOTAL PROTEIN (test 7.1 g/dL 6.3-8.2 N code = PROT) " A positive bias m ay occur for patients ta rosario Eltrombopag(a b one marrow stimulan t used to treat thrombocytopeni a andaplastic anemia)." ALBUMIN (test code = 3.6 g/dL 3.5-5.0 N ALB) CALCIUM (test code = 9.0 mg/dL 8.4-10.2 N CA) BILIRUBIN TOTAL 0.6 mg/dL 0.2-1.3 N "A positive bias may (test code = BILT) occur for patients taking Eltrombo pag(a bone marrow sti mulant used to treat thrombocytopeni a andaplastic ane ezequiel)." BILIRUBIN CONJUGATED 0 mg/dL 0-0.3 N "A posi tive bias may (test code = BILCON) occur f or patients taking Eltrombo pag(a bone marrow sti mulant used to treat thrombocytopeni a andaplastic ane ezequiel)." C ONJUGATE D BILIRUBIN IS THE REPLACEMENT ASS AY FOR DIRECTBILIRUBIN . BILIRUBIN 0.2 mg/dL 0-1.1 N UNCONJUGATED (test code = BILUNC) SGOT/AST (test code 54 U/L 15-46 H = AST) SGPT/ALT (test code 72 U/L 0-34 H = ALT) ALKALINE PHOSPHATASE 117 U/L 38-126 N (test code = ALKP) CBC W/AUTO [id number] 04:38:00 Test Item Value Reference Range Interpretation Comments WHITE BLOOD CELL (test code = 5.5 x10 3/uL 5.0-12.0 N WBC) RED BLOOD CELL (test code = 2.89 x10 6/uL 4.70-6.10 L RBC) HEMOGLOBIN (test code = HGB) 8.5 g/dL 14.0-18.0 L HEMATOCRIT (test code = HCT) 27.4 % 37.0-49.0 L MEAN CELL VOLUME (test code = 95 fL 80-94 H MCV) MEAN CELL HGB (test code = MCH) 29.4 pg 27-31 N MEAN CELL HGB CONCENTRATION 31.0 g/dL 33-37 L (test code = MCHC) RED CELL DISTRIBUTION WIDTH 18.6 % 11.5-15.5 H (test code = RDW) PLATELET COUNT (test code = 327 x10 3/uL 130-400 N PLT) MEAN PLATELET VOLUME (test code 9.3 fL 9.4-16.4 L = MPV) NEUTROPHIL % (test code = NT%) 69.0 % 43-65 H IMMATURE GRANULOCYTE % (test 2.0 % 0.0-2.0 N code = IG%) LYMPHOCYTE % (test code = LY%) 17.6 % 20.5-45.5 L MONOCYTE % (test code = MO%) 10.4 % 5.5-11.7 N EOSINOPHIL % (test code = EO%) 0.5 % 0.9-2.9 L BASOPHIL % (test code = BA%) 0.5 % 0.2-1.0 N NUCLEATED RBC % (test code = 0.0 % 0-1.0 N NRBC%) NEUTROPHIL # (test code = NT#) 3.77 x10 3/uL 2.2-4.8 N IMMATURE GRANULOCYTE # (test 0.11 x10 3/uL 0-0.03 H code = IG#) LYMPHOCYTE # (test code = LY#) 0.96 x10 3/uL 1.3-2.9 L MONOCYTE # (test code = MO#) 0.57 x10 3/uL 0.3-0.8 N EOSINOPHIL # (test code = EO#) 0.03 x10 3/uL 0.0-0.2 N BASOPHIL # (test code = BA#) 0.03 x10 3/uL 0.0-0.1 N COMPREHENSIVE METABOLIC [id number] 06:29:00 Test Item Value Reference Range Interpretation Comments SODIUM (test code = 137 mmol/L 137-145 N NA) POTASSIUM (test code 4.7 mmol/L 3.4-5.0 N = K) CHLORIDE (test code 103 mmol/L 98-107 N = CL) CARBON DIOXIDE (test 24 mmol/L 22-30 N code = CO2) GLUCOSE (test code = 84 mg/dL 74-106 N GLU) BLOOD UREA NITROGEN 21 mg/dL 9-20 H (test code = BUN) GLOMERULAR 143 >60 The estimated FILTRATION RATE glomerular f iltration (test code = GFR) rate is co mputed usingpatient ra ce, age (>18), sex, and serum creatinine. If anyof the needed data elements are mi ssing the Laboratory cannot compute an kevin mation of the glomerul ar filtration rate . CREATININE (test 0.8 mg/dL 0.7-1.3 N code = CREAT) TOTAL PROTEIN (test 7.3 g/dL 6.3-8.2 N code = PROT) " A positive bias m ay occur for patients ta rosario Eltrombopag(a b one marrow stimulan t used to treat thrombocytopeni a andaplastic anemia)." ALBUMIN (test code = 3.7 g/dL 3.5-5.0 N ALB) CALCIUM (test code = 9.1 mg/dL 8.4-10.2 N CA) BILIRUBIN TOTAL 0.5 mg/dL 0.2-1.3 N "A positive bias may (test code = BILT) occur for patients taking Eltrombo pag(a bone marrow sti mulant used to treat thrombocytopeni a andaplastic ane ezequiel)." BILIRUBIN CONJUGATED 0 mg/dL 0-0.3 N "A posi tive bias may (test code = BILCON) occur f or patients taking Eltrombo pag(a bone marrow sti mulant used to treat thrombocytopeni a andaplastic ane ezequiel)." C ONJUGATE D BILIRUBIN IS THE REPLACEMENT ASS AY FOR DIRECTBILIRUBIN . BILIRUBIN 0.3 mg/dL 0-1.1 N UNCONJUGATED (test code = BILUNC) SGOT/AST (test code 117 U/L 15-46 H = AST) SGPT/ALT (test code 115 U/L 0-34 H = ALT) ALKALINE PHOSPHATASE 139 U/L 38-126 H (test code = ALKP) CBC W/AUTO [id number] 05:37:00 Test Item Value Reference Range Interpretation Comments WHITE BLOOD CELL (test code = 5.7 x10 3/uL 5.0-12.0 N WBC) RED BLOOD CELL (test code = 2.66 x10 6/uL 4.70-6.10 L RBC) HEMOGLOBIN (test code = HGB) 7.9 g/dL 14.0-18.0 L HEMATOCRIT (test code = HCT) 25.3 % 37.0-49.0 L MEAN CELL VOLUME (test code = 95 fL 80-94 H MCV) MEAN CELL HGB (test code = MCH) 29.7 pg 27-31 N MEAN CELL HGB CONCENTRATION 31.2 g/dL 33-37 L (test code = MCHC) RED CELL DISTRIBUTION WIDTH 18.6 % 11.5-15.5 H (test code = RDW) PLATELET COUNT (test code = 337 x10 3/uL 130-400 N PLT) MEAN PLATELET VOLUME (test code 9.6 fL 9.4-16.4 N = MPV) NEUTROPHIL % (test code = NT%) 68.5 % 43-65 H IMMATURE GRANULOCYTE % (test 1.4 % 0.0-2.0 N code = IG%) LYMPHOCYTE % (test code = LY%) 17.4 % 20.5-45.5 L MONOCYTE % (test code = MO%) 10.8 % 5.5-11.7 N EOSINOPHIL % (test code = EO%) 1.4 % 0.9-2.9 N BASOPHIL % (test code = BA%) 0.5 % 0.2-1.0 N NUCLEATED RBC % (test code = 0.0 % 0-1.0 N NRBC%) NEUTROPHIL # (test code = NT#) 3.93 x10 3/uL 2.2-4.8 N IMMATURE GRANULOCYTE # (test 0.08 x10 3/uL 0-0.03 H code = IG#) LYMPHOCYTE # (test code = LY#) 1.00 x10 3/uL 1.3-2.9 L MONOCYTE # (test code = MO#) 0.62 x10 3/uL 0.3-0.8 N EOSINOPHIL # (test code = EO#) 0.08 x10 3/uL 0.0-0.2 N BASOPHIL # (test code = BA#) 0.03 x10 3/uL 0.0-0.1 N [id number] 17:56:00 Test Item Value Reference Range Interpretation Comments MAGNESIUM (test code = MAG) 2.0 mg/dL 1.6-2.3 N COMPREHENSIVE METABOLIC [id number] 11:48:00 Test Item Value Reference Range Interpretation Comments SODIUM (test code = 136 mmol/L 137-145 L NA) POTASSIUM (test code 5.2 mmol/L 3.4-5.0 H IS THE SAMPLE = K) HEMOLYZED?:SONU MOLYSIS GRADE:0 CHLORIDE (test code 103 mmol/L 98-107 N = CL) CARBON DIOXIDE (test 26 mmol/L 22-30 N code = CO2) GLUCOSE (test code = 93 mg/dL 74-106 N GLU) BLOOD UREA NITROGEN 21 mg/dL 9-20 H (test code = BUN) GLOMERULAR 143 >60 The estimated FILTRATION RATE glomerular f iltration (test code = GFR) rate is co mputed usingpatient ra ce, age (>18), sex, and serum creatinine. If anyof the needed data elements are mi ssing the Laboratory cannot compute an kevin mation of the glomerul ar filtration rate . CREATININE (test 0.8 mg/dL 0.7-1.3 N code = CREAT) TOTAL PROTEIN (test 7.3 g/dL 6.3-8.2 N code = PROT) " A positive bias m ay occur for patients ta rosario Eltrombopag(a b one marrow stimulan t used to treat thrombocytopeni a andaplastic anemia)." ALBUMIN (test code = 3.7 g/dL 3.5-5.0 N ALB) CALCIUM (test code = 9.3 mg/dL 8.4-10.2 N CA) BILIRUBIN TOTAL 0.6 mg/dL 0.2-1.3 N "A positive bias may (test code = BILT) occur for patients taking Eltrombo pag(a bone marrow sti mulant used to treat thrombocytopeni a andaplastic ane ezequiel)." BILIRUBIN CONJUGATED 0 mg/dL 0-0.3 N "A posi tive bias may (test code = BILCON) occur f or patients taking Eltrombo pag(a bone marrow sti mulant used to treat thrombocytopeni a andaplastic ane ezequiel)." C ONJUGATE D BILIRUBIN IS THE REPLACEMENT ASS AY FOR DIRECTBILIRUBIN . BILIRUBIN 0.2 mg/dL 0-1.1 N UNCONJUGATED (test code = BILUNC) SGOT/AST (test code 84 U/L 15-46 H = AST) SGPT/ALT (test code 88 U/L 0-34 H = ALT) ALKALINE PHOSPHATASE 137 U/L 38-126 H (test code = ALKP) CBC W/AUTO [id number] 11:08:00 Test Item Value Reference Range Interpretation Comments WHITE BLOOD CELL (test code = 5.3 x10 3/uL 5.0-12.0 N WBC) RED BLOOD CELL (test code = 2.83 x10 6/uL 4.70-6.10 L RBC) HEMOGLOBIN (test code = HGB) 8.2 g/dL 14.0-18.0 L HEMATOCRIT (test code = HCT) 26.0 % 37.0-49.0 L MEAN CELL VOLUME (test code = 92 fL 80-94 N MCV) MEAN CELL HGB (test code = MCH) 29.0 pg 27-31 N MEAN CELL HGB CONCENTRATION 31.5 g/dL 33-37 L (test code = MCHC) RED CELL DISTRIBUTION WIDTH 18.3 % 11.5-15.5 H (test code = RDW) PLATELET COUNT (test code = 284 x10 3/uL 130-400 N PLT) MEAN PLATELET VOLUME (test code 9.6 fL 9.4-16.4 N = MPV) NEUTROPHIL % (test code = NT%) 66.7 % 43-65 H IMMATURE GRANULOCYTE % (test 1.7 % 0.0-2.0 N code = IG%) LYMPHOCYTE % (test code = LY%) 19.0 % 20.5-45.5 L MONOCYTE % (test code = MO%) 9.7 % 5.5-11.7 N EOSINOPHIL % (test code = EO%) 2.5 % 0.9-2.9 N BASOPHIL % (test code = BA%) 0.4 % 0.2-1.0 N NUCLEATED RBC % (test code = 0.0 % 0-1.0 N NRBC%) NEUTROPHIL # (test code = NT#) 3.50 x10 3/uL 2.2-4.8 N IMMATURE GRANULOCYTE # (test 0.09 x10 3/uL 0-0.03 H code = IG#) LYMPHOCYTE # (test code = LY#) 1.00 x10 3/uL 1.3-2.9 L MONOCYTE # (test code = MO#) 0.51 x10 3/uL 0.3-0.8 N EOSINOPHIL # (test code = EO#) 0.13 x10 3/uL 0.0-0.2 N BASOPHIL # (test code = BA#) 0.02 x10 3/uL 0.0-0.1 N BASIC METABOLIC [id number] 06:36:00 Test Item Value Reference Range Interpretation Comments SODIUM (test code = 136 mmol/L 137-145 L NA) POTASSIUM (test code 5.9 mmol/L 3.4-5.0 H IS THE SAMPLE = K) HEMOLYZED?:NHEM OLYSIS GRADE: CHLORIDE (test code = 103 mmol/L 98-107 N CL) CARBON DIOXIDE (test 25 mmol/L 22-30 N code = CO2) GLUCOSE (test code = 85 mg/dL 74-106 N GLU) BLOOD UREA NITROGEN 20 mg/dL 9-20 N (test code = BUN) GLOMERULAR FILTRATION 143 >60 The es timated RATE (test code = glomerular filtration GFR) rate is compute d usingpatient ra ce, age (>18), sex, and serum creatinine. If anyof the needed data elements are mi ssing the Laboratory cannot compute an kevin mation of the glomerul ar filtration rate . CREATININE (test code 0.8 mg/dL 0.7-1.3 N = CREAT) CALCIUM (test code = 9.1 mg/dL 8.4-10.2 N CA) [id number] 06:36:00 Test Item Value Reference Range Interpretation Comments MAGNESIUM (test code = MAG) 1.5 mg/dL 1.6-2.3 L CBC W/AUTO [id number] 06:13:00 Test Item Value Reference Range Interpretation Comments WHITE BLOOD CELL (test code = 5.2 x10 3/uL 5.0-12.0 N WBC) RED BLOOD CELL (test code = 2.91 x10 6/uL 4.70-6.10 L RBC) HEMOGLOBIN (test code = HGB) 8.8 g/dL 14.0-18.0 L HEMATOCRIT (test code = HCT) 27.3 % 37.0-49.0 L MEAN CELL VOLUME (test code = 94 fL 80-94 N MCV) MEAN CELL HGB (test code = MCH) 30.2 pg 27-31 N MEAN CELL HGB CONCENTRATION 32.2 g/dL 33-37 L (test code = MCHC) RED CELL DISTRIBUTION WIDTH 18.4 % 11.5-15.5 H (test code = RDW) PLATELET COUNT (test code = 283 x10 3/uL 130-400 N PLT) MEAN PLATELET VOLUME (test code 9.8 fL 9.4-16.4 N = MPV) NEUTROPHIL % (test code = NT%) 65.9 % 43-65 H IMMATURE GRANULOCYTE % (test 1.9 % 0.0-2.0 N code = IG%) LYMPHOCYTE % (test code = LY%) 19.6 % 20.5-45.5 L MONOCYTE % (test code = MO%) 9.7 % 5.5-11.7 N EOSINOPHIL % (test code = EO%) 2.5 % 0.9-2.9 N BASOPHIL % (test code = BA%) 0.4 % 0.2-1.0 N NUCLEATED RBC % (test code = 0.0 % 0-1.0 N NRBC%) NEUTROPHIL # (test code = NT#) 3.39 x10 3/uL 2.2-4.8 N IMMATURE GRANULOCYTE # (test 0.10 x10 3/uL 0-0.03 H code = IG#) LYMPHOCYTE # (test code = LY#) 1.01 x10 3/uL 1.3-2.9 L MONOCYTE # (test code = MO#) 0.50 x10 3/uL 0.3-0.8 N EOSINOPHIL # (test code = EO#) 0.13 x10 3/uL 0.0-0.2 N BASOPHIL # (test code = BA#) 0.02 x10 3/uL 0.0-0.1 N [id number] 21:18:00 Test Item Value Reference Range Interpretation Comments GLUBED (test code = GLUBED) 89 MG/DL 74-106 N BASIC METABOLIC [id number] 06:23:00 Test Item Value Reference Range Interpretation Comments SODIUM (test code = 136 mmol/L 137-145 L NA) POTASSIUM (test code 5.3 mmol/L 3.4-5.0 H IS THE SAMPLE = K) HEMOLYZED?:NHEM OLYSIS GRADE:0 CHLORIDE (test code = 104 mmol/L 98-107 N CL) CARBON DIOXIDE (test 24 mmol/L 22-30 N code = CO2) GLUCOSE (test code = 81 mg/dL 74-106 N GLU) BLOOD UREA NITROGEN 18 mg/dL 9-20 N (test code = BUN) GLOMERULAR FILTRATION 166 >60 The es timated RATE (test code = glomerular filtration GFR) rate is compute d usingpatient ra ce, age (>18), sex, and serum creatinine. If anyof the needed data elements are mi ssing the Laboratory cannot compute an kevin mation of the glomerul ar filtration rate . CREATININE (test code 0.7 mg/dL 0.7-1.3 N = CREAT) CALCIUM (test code = 9.0 mg/dL 8.4-10.2 N CA) CBC W/AUTO [id number] 05:56:00 Test Item Value Reference Range Interpretation Comments WHITE BLOOD CELL (test code = 4.8 x10 3/uL 5.0-12.0 L WBC) RED BLOOD CELL (test code = 3.05 x10 6/uL 4.70-6.10 L RBC) HEMOGLOBIN (test code = HGB) 8.9 g/dL 14.0-18.0 L HEMATOCRIT (test code = HCT) 27.9 % 37.0-49.0 L MEAN CELL VOLUME (test code = 92 fL 80-94 N MCV) MEAN CELL HGB (test code = MCH) 29.2 pg 27-31 N MEAN CELL HGB CONCENTRATION 31.9 g/dL 33-37 L (test code = MCHC) RED CELL DISTRIBUTION WIDTH 18.0 % 11.5-15.5 H (test code = RDW) PLATELET COUNT (test code = 254 x10 3/uL 130-400 N PLT) MEAN PLATELET VOLUME (test code 9.9 fL 9.4-16.4 N = MPV) NEUTROPHIL % (test code = NT%) 64.4 % 43-65 N IMMATURE GRANULOCYTE % (test 0.6 % 0.0-2.0 N code = IG%) LYMPHOCYTE % (test code = LY%) 21.8 % 20.5-45.5 N MONOCYTE % (test code = MO%) 8.7 % 5.5-11.7 N EOSINOPHIL % (test code = EO%) 4.1 % 0.9-2.9 H BASOPHIL % (test code = BA%) 0.4 % 0.2-1.0 N NUCLEATED RBC % (test code = 0.0 % 0-1.0 N NRBC%) NEUTROPHIL # (test code = NT#) 3.10 x10 3/uL 2.2-4.8 N IMMATURE GRANULOCYTE # (test 0.03 x10 3/uL 0-0.03 N code = IG#) LYMPHOCYTE # (test code = LY#) 1.05 x10 3/uL 1.3-2.9 L MONOCYTE # (test code = MO#) 0.42 x10 3/uL 0.3-0.8 N EOSINOPHIL # (test code = EO#) 0.20 x10 3/uL 0.0-0.2 N BASOPHIL # (test code = BA#) 0.02 x10 3/uL 0.0-0.1 N CBC W/MANUAL [id number] 06:15:00 Test Item Value Reference Range Interpretation Comments WHITE BLOOD CELL (test code = 5.0 x10 3/uL 5.0-12.0 N WBC) RED BLOOD CELL (test code = 2.70 x10 6/uL 4.70-6.10 L RBC) HEMOGLOBIN (test code = HGB) 7.9 g/dL 14.0-18.0 L HEMATOCRIT (test code = HCT) 24.8 % 37.0-49.0 L MEAN CELL VOLUME (test code = 92 fL 80-94 N MCV) MEAN CELL HGB (test code = MCH) 29.3 pg 27-31 N MEAN CELL HGB CONCENTRATION 31.9 g/dL 33-37 L (test code = MCHC) RED CELL DISTRIBUTION WIDTH 18.3 % 11.5-15.5 H (test code = RDW) PLATELET COUNT (test code = 222 x10 3/uL 130-400 N PLT) MEAN PLATELET VOLUME (test code 9.9 fL 9.4-16.4 N = MPV) TOTAL CELLS COUNTED (test code 100 #CELLS = TCC) SEGMENTED NEUTROPHILS (test 74 % 43-65 H code = SEG) LYMPHOCYTE (test code = LYMPH) 12 % 20.5-45.5 L ATYPICAL LYMPH (test code = 5 % 0-1 H ALYMPH) MONOCYTE (test code = MON) 5 % 5.5-11.7 L EOSINOPHIL (test code = EOS) 2 % 0.9-2.9 N BASOPHIL (test code = BASO) 1 % 0.2-1.0 N POLYCHROMASIA (test code = 1+ NONE SEEN A POLC) ANISOCYTOSIS (test code = 1+ NONE SEEN A ANISO) MICROCYTOSIS (test code = MICR) 1+ NONE SEEN A PLATELET ESTIMATE (test code = ADEQUATE ADEQUATE PLTEST) PLATELET MORPHOLOGY (test code NORMAL NORMAL = PLTMORPH) COMPREHENSIVE METABOLIC [id number] 05:53:00 Test Item Value Reference Range Interpretation Comments SODIUM (test code = 136 mmol/L 137-145 L NA) POTASSIUM (test code 4.9 mmol/L 3.4-5.0 N = K) CHLORIDE (test code 104 mmol/L 98-107 N = CL) CARBON DIOXIDE (test 26 mmol/L 22-30 N code = CO2) GLUCOSE (test code = 91 mg/dL 74-106 N GLU) BLOOD UREA NITROGEN 19 mg/dL 9-20 N (test code = BUN) GLOMERULAR 143 >60 The estimated FILTRATION RATE glomerular f iltration (test code = GFR) rate is co mputed usingpatient ra ce, age (>18), sex, and serum creatinine. If anyof the needed data elements are mi ssing the Laboratory cannot compute an kevin mation of the glomerul ar filtration rate . CREATININE (test 0.8 mg/dL 0.7-1.3 N code = CREAT) TOTAL PROTEIN (test 7.2 g/dL 6.3-8.2 N code = PROT) " A positive bias m ay occur for patients ta rosario Eltrombopag(a b one marrow stimulan t used to treat thrombocytopeni a andaplastic anemia)." ALBUMIN (test code = 3.6 g/dL 3.5-5.0 N ALB) CALCIUM (test code = 9.0 mg/dL 8.4-10.2 N CA) BILIRUBIN TOTAL 0.6 mg/dL 0.2-1.3 N "A positive bias may (test code = BILT) occur for patients taking Eltrombo pag(a bone marrow sti mulant used to treat thrombocytopeni a andaplastic ane ezequiel)." BILIRUBIN CONJUGATED 0 mg/dL 0-0.3 N "A posi tive bias may (test code = BILCON) occur f or patients taking Eltrombo pag(a bone marrow sti mulant used to treat thrombocytopeni a andaplastic ane ezequiel)." C ONJUGATE D BILIRUBIN IS THE REPLACEMENT ASS AY FOR DIRECTBILIRUBIN . BILIRUBIN 0.2 mg/dL 0-1.1 N UNCONJUGATED (test code = BILUNC) SGOT/AST (test code 46 U/L 15-46 N = AST) SGPT/ALT (test code 57 U/L 0-34 H = ALT) ALKALINE PHOSPHATASE 148 U/L 38-126 H (test code = ALKP) CBC W/MANUAL [id number] 05:36:00 Test Item Value Reference Range Interpretation Comments WHITE BLOOD CELL (test code = 5.0 x10 3/uL 5.0-12.0 N WBC) RED BLOOD CELL (test code = 2.70 x10 6/uL 4.70-6.10 L RBC) HEMOGLOBIN (test code = HGB) 7.9 g/dL 14.0-18.0 L HEMATOCRIT (test code = HCT) 24.8 % 37.0-49.0 L MEAN CELL VOLUME (test code = 92 fL 80-94 N MCV) MEAN CELL HGB (test code = MCH) 29.3 pg 27-31 N MEAN CELL HGB CONCENTRATION 31.9 g/dL 33-37 L (test code = MCHC) RED CELL DISTRIBUTION WIDTH 18.3 % 11.5-15.5 H (test code = RDW) PLATELET COUNT (test code = 222 x10 3/uL 130-400 N PLT) MEAN PLATELET VOLUME (test code 9.9 fL 9.4-16.4 N = MPV) TOTAL CELLS COUNTED (test code #CELLS = TCC) SEGMENTED NEUTROPHILS (test % 43-65 code = SEG) LYMPHOCYTE (test code = LYMPH) % 20.5-45.5 CBC W/MANUAL [id number] 05:36:00 Test Item Value Reference Range Interpretation Comments WHITE BLOOD CELL (test code = 5.0 x10 3/uL 5.0-12.0 N WBC) RED BLOOD CELL (test code = 2.70 x10 6/uL 4.70-6.10 L RBC) HEMOGLOBIN (test code = HGB) 7.9 g/dL 14.0-18.0 L HEMATOCRIT (test code = HCT) 24.8 % 37.0-49.0 L MEAN CELL VOLUME (test code = 92 fL 80-94 N MCV) MEAN CELL HGB (test code = MCH) 29.3 pg 27-31 N MEAN CELL HGB CONCENTRATION 31.9 g/dL 33-37 L (test code = MCHC) RED CELL DISTRIBUTION WIDTH 18.3 % 11.5-15.5 H (test code = RDW) PLATELET COUNT (test code = 222 x10 3/uL 130-400 N PLT) MEAN PLATELET VOLUME (test code 9.9 fL 9.4-16.4 N = MPV) TOTAL CELLS COUNTED (test code #CELLS = TCC) SEGMENTED NEUTROPHILS (test % 43-65 code = SEG) LYMPHOCYTE (test code = LYMPH) % 20.5-45.5 [id number] 21:35:00 Test Item Value Reference Range Interpretation Comments GLUBED (test code = GLUBED) 96 MG/DL 74-106 N COMPREHENSIVE METABOLIC [id number] 19:02:00 Test Item Value Reference Range Interpretation Comments SODIUM (test code = 138 mmol/L 137-145 N NA) POTASSIUM (test code 4.5 mmol/L 3.4-5.0 N = K) CHLORIDE (test code 104 mmol/L 98-107 N = CL) CARBON DIOXIDE (test 25 mmol/L 22-30 N code = CO2) GLUCOSE (test code = 91 mg/dL 74-106 N GLU) BLOOD UREA NITROGEN 19 mg/dL 9-20 N (test code = BUN) GLOMERULAR 125 >60 The estimated FILTRATION RATE glomerular f iltration (test code = GFR) rate is co mputed usingpatient ra ce, age (>18), sex, and serum creatinine. If anyof the needed data elements are mi ssing the Laboratory cannot compute an kevin mation of the glomerul ar filtration rate . CREATININE (test 0.9 mg/dL 0.7-1.3 N code = CREAT) TOTAL PROTEIN (test 7.2 g/dL 6.3-8.2 N code = PROT) " A positive bias m ay occur for patients ta rosario Eltrombopag(a b one marrow stimulan t used to treat thrombocytopeni a andaplastic anemia)." ALBUMIN (test code = 3.6 g/dL 3.5-5.0 N ALB) CALCIUM (test code = 9.1 mg/dL 8.4-10.2 N CA) BILIRUBIN TOTAL 0.6 mg/dL 0.2-1.3 N "A positive bias may (test code = BILT) occur for patients taking Eltrombo pag(a bone marrow sti mulant used to treat thrombocytopeni a andaplastic ane ezequiel)." BILIRUBIN CONJUGATED 0 mg/dL 0-0.3 N "A posi tive bias may (test code = BILCON) occur f or patients taking Eltrombo pag(a bone marrow sti mulant used to treat thrombocytopeni a andaplastic ane ezequiel)." C ONJUGATE D BILIRUBIN IS THE REPLACEMENT ASS AY FOR DIRECTBILIRUBIN . BILIRUBIN 0.1 mg/dL 0-1.1 N UNCONJUGATED (test code = BILUNC) SGOT/AST (test code 46 U/L 15-46 N = AST) SGPT/ALT (test code 58 U/L 0-34 H = ALT) ALKALINE PHOSPHATASE 155 U/L 38-126 H (test code = ALKP) CBC W/AUTO [id number] 18:50:00 Test Item Value Reference Range Interpretation Comments WHITE BLOOD CELL (test code = 4.6 x10 3/uL 5.0-12.0 L WBC) RED BLOOD CELL (test code = 2.81 x10 6/uL 4.70-6.10 L RBC) HEMOGLOBIN (test code = HGB) 8.3 g/dL 14.0-18.0 L HEMATOCRIT (test code = HCT) 26.1 % 37.0-49.0 L MEAN CELL VOLUME (test code = 93 fL 80-94 N MCV) MEAN CELL HGB (test code = MCH) 29.5 pg 27-31 N MEAN CELL HGB CONCENTRATION 31.8 g/dL 33-37 L (test code = MCHC) RED CELL DISTRIBUTION WIDTH 18.3 % 11.5-15.5 H (test code = RDW) PLATELET COUNT (test code = 214 x10 3/uL 130-400 N PLT) MEAN PLATELET VOLUME (test code 9.8 fL 9.4-16.4 N = MPV) NEUTROPHIL % (test code = NT%) 65.0 % 43-65 N IMMATURE GRANULOCYTE % (test 0.9 % 0.0-2.0 N code = IG%) LYMPHOCYTE % (test code = LY%) 21.2 % 20.5-45.5 N MONOCYTE % (test code = MO%) 7.2 % 5.5-11.7 N EOSINOPHIL % (test code = EO%) 5.5 % 0.9-2.9 H BASOPHIL % (test code = BA%) 0.2 % 0.2-1.0 N NUCLEATED RBC % (test code = 0.0 % 0-1.0 N NRBC%) NEUTROPHIL # (test code = NT#) 2.97 x10 3/uL 2.2-4.8 N IMMATURE GRANULOCYTE # (test 0.04 x10 3/uL 0-0.03 H code = IG#) LYMPHOCYTE # (test code = LY#) 0.97 x10 3/uL 1.3-2.9 L MONOCYTE # (test code = MO#) 0.33 x10 3/uL 0.3-0.8 N EOSINOPHIL # (test code = EO#) 0.25 x10 3/uL 0.0-0.2 H BASOPHIL # (test code = BA#) 0.01 x10 3/uL 0.0-0.1 N [id number] 17:48:00 Test Item Value Reference Range Interpretation Comments GLUBED (test code = GLUBED) 78 MG/DL 74-106 N [id number] 13:34:00 Test Item Value Reference Range Interpretation Comments GLUBED (test code = GLUBED) 97 MG/DL 74-106 N BASIC METABOLIC [id number] 01:19:00 Test Item Value Reference Range Interpretation Comments SODIUM (test code = 137 mmol/L 137-145 N NA) POTASSIUM (test code 5.6 mmol/L 3.4-5.0 H IS THE SAMPLE = K) HEMOLYZED?:SONU MOLYSIS GRADE:NO CHLORIDE (test code = 107 mmol/L 98-107 N CL) CARBON DIOXIDE (test 24 mmol/L 22-30 N code = CO2) GLUCOSE (test code = 84 mg/dL 74-106 N GLU) BLOOD UREA NITROGEN 22 mg/dL 9-20 H (test code = BUN) GLOMERULAR FILTRATION 111 >60 The es timated RATE (test code = glomerular filtration GFR) rate is compute d usingpatient ra ce, age (>18), sex, and serum creatinine. If anyof the needed data elements are mi ssing the Laboratory cannot compute an kevin mation of the glomerul ar filtration rate . CREATININE (test code 1.0 mg/dL 0.7-1.3 N = CREAT) CALCIUM (test code = 8.7 mg/dL 8.4-10.2 N CA) CBC W/AUTO [id number] 01:06:00 Test Item Value Reference Range Interpretation Comments WHITE BLOOD CELL (test code = 4.6 x10 3/uL 5.0-12.0 L WBC) RED BLOOD CELL (test code = 2.80 x10 6/uL 4.70-6.10 L RBC) HEMOGLOBIN (test code = HGB) 8.4 g/dL 14.0-18.0 L HEMATOCRIT (test code = HCT) 26.1 % 37.0-49.0 L MEAN CELL VOLUME (test code = 93 fL 80-94 N MCV) MEAN CELL HGB (test code = MCH) 30.0 pg 27-31 N MEAN CELL HGB CONCENTRATION 32.2 g/dL 33-37 L (test code = MCHC) RED CELL DISTRIBUTION WIDTH 18.5 % 11.5-15.5 H (test code = RDW) PLATELET COUNT (test code = 189 x10 3/uL 130-400 N PLT) MEAN PLATELET VOLUME (test code 9.5 fL 9.4-16.4 N = MPV) NEUTROPHIL % (test code = NT%) 62.0 % 43-65 N IMMATURE GRANULOCYTE % (test 0.7 % 0.0-2.0 N code = IG%) LYMPHOCYTE % (test code = LY%) 21.3 % 20.5-45.5 N MONOCYTE % (test code = MO%) 8.8 % 5.5-11.7 N EOSINOPHIL % (test code = EO%) 6.8 % 0.9-2.9 H BASOPHIL % (test code = BA%) 0.4 % 0.2-1.0 N NUCLEATED RBC % (test code = 0.0 % 0-1.0 N NRBC%) NEUTROPHIL # (test code = NT#) 2.83 x10 3/uL 2.2-4.8 N IMMATURE GRANULOCYTE # (test 0.03 x10 3/uL 0-0.03 N code = IG#) LYMPHOCYTE # (test code = LY#) 0.97 x10 3/uL 1.3-2.9 L MONOCYTE # (test code = MO#) 0.40 x10 3/uL 0.3-0.8 N EOSINOPHIL # (test code = EO#) 0.31 x10 3/uL 0.0-0.2 H BASOPHIL # (test code = BA#) 0.02 x10 3/uL 0.0-0.1 N [id number] 17:56:00 Test Item Value Reference Range Interpretation Comments GLUBED (test code = GLUBED) 111 MG/DL 74-106 H [id number] 13:58:00 Test Item Value Reference Range Interpretation Comments GLUBED (test code = GLUBED) 75 MG/DL 74-106 N COMPREHENSIVE METABOLIC [id number] 04:26:00 Test Item Value Reference Range Interpretation Comments SODIUM (test code = 134 mmol/L 137-145 L NA) POTASSIUM (test code 5.4 mmol/L 3.4-5.0 H IS THE SAMPLE = K) HEMOLYZED?:SONU MOLYSIS GRADE:NO CHLORIDE (test code 105 mmol/L 98-107 N = CL) CARBON DIOXIDE (test 20 mmol/L 22-30 L code = CO2) GLUCOSE (test code = 82 mg/dL 74-106 N GLU) BLOOD UREA NITROGEN 24 mg/dL 9-20 H (test code = BUN) GLOMERULAR 111 >60 The estimated FILTRATION RATE glomerular f iltration (test code = GFR) rate is co mputed usingpatient ra ce, age (>18), sex, and serum creatinine. If anyof the needed data elements are mi ssing the Laboratory cannot compute an kevin mation of the glomerul ar filtration rate . CREATININE (test 1.0 mg/dL 0.7-1.3 N code = CREAT) TOTAL PROTEIN (test 6.9 g/dL 6.3-8.2 N code = PROT) " A positive bias m ay occur for patients ta rosario Eltrombopag(a b one marrow stimulan t used to treat thrombocytopeni a andaplastic anemia)." ALBUMIN (test code = 3.4 g/dL 3.5-5.0 L ALB) CALCIUM (test code = 8.6 mg/dL 8.4-10.2 N CA) BILIRUBIN TOTAL 0.8 mg/dL 0.2-1.3 N "A positive bias may (test code = BILT) occur for patients taking Eltrombo pag(a bone marrow sti mulant used to treat thrombocytopeni a andaplastic ane ezequiel)." BILIRUBIN CONJUGATED 0 mg/dL 0-0.3 N "A posi tive bias may (test code = BILCON) occur f or patients taking Eltrombo pag(a bone marrow sti mulant used to treat thrombocytopeni a andaplastic ane ezequiel)." C ONJUGATE D BILIRUBIN IS THE REPLACEMENT ASS AY FOR DIRECTBILIRUBIN . BILIRUBIN 0.4 mg/dL 0-1.1 N UNCONJUGATED (test code = BILUNC) SGOT/AST (test code 70 U/L 15-46 H = AST) SGPT/ALT (test code 74 U/L 0-34 H = ALT) ALKALINE PHOSPHATASE 178 U/L 38-126 H (test code = ALKP) CBC W/AUTO [id number] 03:52:00 Test Item Value Reference Range Interpretation Comments WHITE BLOOD CELL (test code = 4.9 x10 3/uL 5.0-12.0 L WBC) RED BLOOD CELL (test code = 2.48 x10 6/uL 4.70-6.10 L RBC) HEMOGLOBIN (test code = HGB) 7.3 g/dL 14.0-18.0 L HEMATOCRIT (test code = HCT) 23.2 % 37.0-49.0 L MEAN CELL VOLUME (test code = 94 fL 80-94 N MCV) MEAN CELL HGB (test code = MCH) 29.4 pg 27-31 N MEAN CELL HGB CONCENTRATION 31.5 g/dL 33-37 L (test code = MCHC) RED CELL DISTRIBUTION WIDTH 18.6 % 11.5-15.5 H (test code = RDW) PLATELET COUNT (test code = 163 x10 3/uL 130-400 N PLT) MEAN PLATELET VOLUME (test code 9.7 fL 9.4-16.4 N = MPV) NEUTROPHIL % (test code = NT%) 62.6 % 43-65 N IMMATURE GRANULOCYTE % (test 0.4 % 0.0-2.0 N code = IG%) LYMPHOCYTE % (test code = LY%) 18.0 % 20.5-45.5 L MONOCYTE % (test code = MO%) 9.0 % 5.5-11.7 N EOSINOPHIL % (test code = EO%) 9.6 % 0.9-2.9 H BASOPHIL % (test code = BA%) 0.4 % 0.2-1.0 N NUCLEATED RBC % (test code = 0.0 % 0-1.0 N NRBC%) NEUTROPHIL # (test code = NT#) 3.06 x10 3/uL 2.2-4.8 N IMMATURE GRANULOCYTE # (test 0.02 x10 3/uL 0-0.03 N code = IG#) LYMPHOCYTE # (test code = LY#) 0.88 x10 3/uL 1.3-2.9 L MONOCYTE # (test code = MO#) 0.44 x10 3/uL 0.3-0.8 N EOSINOPHIL # (test code = EO#) 0.47 x10 3/uL 0.0-0.2 H BASOPHIL # (test code = BA#) 0.02 x10 3/uL 0.0-0.1 N [id number] 21:36:00 Test Item Value Reference Range Interpretation Comments GLUBED (test code = GLUBED) 90 MG/DL 74-106 N BASIC METABOLIC [id number] 14:06:00 Test Item Value Reference Range Interpretation Comments SODIUM (test code = 133 mmol/L 137-145 L NA) POTASSIUM (test code 5.0 mmol/L 3.4-5.0 N = K) CHLORIDE (test code = 105 mmol/L 98-107 N CL) CARBON DIOXIDE (test 22 mmol/L 22-30 N code = CO2) GLUCOSE (test code = 91 mg/dL 74-106 N GLU) BLOOD UREA NITROGEN 26 mg/dL 9-20 H (test code = BUN) GLOMERULAR FILTRATION 111 >60 The es timated RATE (test code = glomerular filtration GFR) rate is compute d usingpatient ra ce, age (>18), sex, and serum creatinine. If anyof the needed data elements are mi ssing the Laboratory cannot compute an kevin mation of the glomerul ar filtration rate . CREATININE (test code 1.0 mg/dL 0.7-1.3 N = CREAT) CALCIUM (test code = 8.5 mg/dL 8.4-10.2 N CA) [id number] 14:06:00 Test Item Value Reference Range Interpretation Comments MAGNESIUM (test code = MAG) 2.0 mg/dL 1.6-2.3 N BASIC METABOLIC [id number] 14:01:00 Test Item Value Reference Range Interpretation Comments SODIUM (test code = 133 mmol/L 137-145 L NA) POTASSIUM (test code 5.0 mmol/L 3.4-5.0 N = K) CHLORIDE (test code = 105 mmol/L 98-107 N CL) CARBON DIOXIDE (test 22 mmol/L 22-30 N code = CO2) GLUCOSE (test code = 91 mg/dL 74-106 N GLU) BLOOD UREA NITROGEN 26 mg/dL 9-20 H (test code = BUN) GLOMERULAR FILTRATION 111 >60 The es timated RATE (test code = glomerular filtration GFR) rate is compute d usingpatient ra ce, age (>18), sex, and serum creatinine. If anyof the needed data elements are mi ssing the Laboratory cannot compute an kevin mation of the glomerul ar filtration rate . CREATININE (test code 1.0 mg/dL 0.7-1.3 N = CREAT) CALCIUM (test code = 8.5 mg/dL 8.4-10.2 N CA) [id number] 14:01:00 Test Item Value Reference Range Interpretation Comments MAGNESIUM (test code = MAG) mg/dL 1.6-2.3 CBC W/AUTO [id number] 13:40:00 Test Item Value Reference Range Interpretation Comments WHITE BLOOD CELL (test code = 4.4 x10 3/uL 5.0-12.0 L WBC) RED BLOOD CELL (test code = 2.27 x10 6/uL 4.70-6.10 L RBC) HEMOGLOBIN (test code = HGB) 6.6 g/dL 14.0-18.0 L HEMATOCRIT (test code = HCT) 21.4 % 37.0-49.0 L MEAN CELL VOLUME (test code = 94 fL 80-94 N MCV) MEAN CELL HGB (test code = MCH) 29.1 pg 27-31 N MEAN CELL HGB CONCENTRATION 30.8 g/dL 33-37 L (test code = MCHC) RED CELL DISTRIBUTION WIDTH 18.9 % 11.5-15.5 H (test code = RDW) PLATELET COUNT (test code = 164 x10 3/uL 130-400 N PLT) MEAN PLATELET VOLUME (test code 10.4 fL 9.4-16.4 N = MPV) NEUTROPHIL % (test code = NT%) 66.5 % 43-65 H IMMATURE GRANULOCYTE % (test 0.5 % 0.0-2.0 N code = IG%) LYMPHOCYTE % (test code = LY%) 13.0 % 20.5-45.5 L MONOCYTE % (test code = MO%) 8.4 % 5.5-11.7 N EOSINOPHIL % (test code = EO%) 11.4 % 0.9-2.9 H BASOPHIL % (test code = BA%) 0.2 % 0.2-1.0 N NUCLEATED RBC % (test code = 0.0 % 0-1.0 N NRBC%) NEUTROPHIL # (test code = NT#) 2.92 x10 3/uL 2.2-4.8 N IMMATURE GRANULOCYTE # (test 0.02 x10 3/uL 0-0.03 N code = IG#) LYMPHOCYTE # (test code = LY#) 0.57 x10 3/uL 1.3-2.9 L MONOCYTE # (test code = MO#) 0.37 x10 3/uL 0.3-0.8 N EOSINOPHIL # (test code = EO#) 0.50 x10 3/uL 0.0-0.2 H BASOPHIL # (test code = BA#) 0.01 x10 3/uL 0.0-0.1 N [id number] 21:19:00 Test Item Value Reference Range Interpretation Comments GLUBED (test code = GLUBED) 105 MG/DL 74-106 N [id number] 18:02:00 Test Item Value Reference Range Interpretation Comments GLUBED (test code = GLUBED) 106 MG/DL 74-106 N [id number] 12:40:00 Test Item Value Reference Range Interpretation Comments GLUBED (test code = GLUBED) 74 MG/DL 74-106 N [id number] 05:50:00 Test Item Value Reference Range Interpretation Comments GLUBED (test code = GLUBED) 82 MG/DL 74-106 N [id number] 23:12:00 Test Item Value Reference Range Interpretation Comments POTASSIUM (test code = K) 4.9 mmol/L 3.4-5.0 N [id number] 23:12:00 Test Item Value Reference Range Interpretation Comments MAGNESIUM (test code = MAG) 2.4 mg/dL 1.6-2.3 H [id number] 21:33:00 Test Item Value Reference Range Interpretation Comments GLUBED (test code = GLUBED) 79 MG/DL 74-106 N LACTIC [id number] 14:06:00 Test Item Value Reference Range Interpretation Comments LACTIC ACID (test code = LACT) 0.8 mmol/L 0.7-2.0 N [id number] 13:32:00 Test Item Value Reference Range Interpretation Comments CREATININE (test code = CREAT) 1.8 mg/dL 0.7-1.3 H BILIRUBIN [id number] 13:32:00 Test Item Value Reference Range Interpretation Comments BILIRUBIN TOTAL 1.1 mg/dL 0.2-1.3 N "A positive bias may (test code = BILT) occur for patients taking Eltrombopag(a b one marrow stimulant used to treat thrombocytopeni a andaplastic ane ezequiel)." PLATELET [id number] 13:10:00 Test Item Value Reference Range Interpretation Comments PLATELET COUNT (test code = PLT) 165 x10 3/uL 130-400 N [id number] 12:21:00 Test Item Value Reference Range Interpretation Comments GLUBED (test code = GLUBED) 84 MG/DL 74-106 N - XR CHEST 1 [id number] 12:15:00 [facility] : 1985 Sex: M FAX: Raphael Davila MD Constable: St: ADM FAX: Sanju Hurd MD [phone] Name: JORGE GOINS [facility] : 1985 Age/S: 34/M [address] Unit #: [id number] Loc: C.33[address] [place] [address] Phys: Sanju Guillory MD Acct: [id number] Dis Date: Status: ADM IN PHONE #: [phone] Exam Date: 08/07/2020 1210 FAX #: [phone] Reason: SEPSIS EXAMS: CPT CODE: [id number] XR CHEST 1 V 78651 EXAMINATION: - XR CHEST 1 V HISTORY: Sepsis COMPARISON: Chest x-ray performed July 29, 2020 LOCATION CODE: C3 FINDINGS: Single frontal view of the chest is submitted for evaluation. Tracheostomy tube has been removed since the prior study. Lungs are clear. Cardiac silhouette remains prominent. Aortic stent extending from the aortic arch into the abdominal aorta is unchanged. No acute bony abnormalities are identified. IMPRESSION: Interval removal of tracheostomy tube. No acute abnormality at 1215 Reported and signed by: Vivian Youssef MD CC: Raphael Davila MD; Sanju Guillory MD Technologist: Domingo Haskinsmtrd Date/Time/By: 08/07/2020 (6606) : By: [email or web address] PAGE 1 Signed Report FAX: Raphael Davila MD Constable: St: ADM FAX: Sanju Hurd MD [phone] Name: JORGE GOINS [facility] : 1985 Age/S: 34/M [address] Unit #: [id number] Loc: [address] [address] Phys: Sanju Guillory MD Acct: [id number] Dis Date: Status: ADM IN PHONE #: [phone] Exam Date: 08/07/2020 1210 FAX #: [phone] Reason: SEPSIS EXAMS: CPT CODE: [id number] XR CHEST 1 V 96569 (Continued) Orig Print D/T: S: 08/07/2020 (4408) PAGE 2 Signed ReportURINALYSIS [id number] 10:42:00 Test Item Value Reference Range Interpretation Comments UA COLOR (test code Graeme Yellow A = COLU) UA APPEARANCE (test Cloudy Clear A code = APPU) UA GLUCOSE DIPSTICK Negative Negative (test code = DGLUU) UA BILIRUBIN Negative Negative DIPSTICK (test code = BILU) UA KETONE DIPSTICK Negative mg/dL Negative (test code = KETU) UA SPECIFIC GRAVITY 1.019 <1.030 (test code = SGU) UA BLOOD DIPSTICK 1+ Negative A (test code = JESSICA) UA PH DIPSTICK (test 5.0 5.0-8.0 code = TYSON) UA PROTEIN DIPSTICK 30 (1+) mg/dL Negative A (test code = PROU) UA UROBILINOGEN Negative mg/dL Negative DIPSTICK (test code = URO) UA NITRITE DIPSTICK Negative Negative (test code = KHAI) UA LEUKOCYTE 3+ Negative A ESTERASE DIPSTICK (test code = LEUU) UA WBC (test code = >100 /HPF See_Comment A [Automa kar WBCU) message] The system which generated this result transmit kar reference range : <4-5. The reference range was not used to interpret this result as normal/abnormal . UA RBC (test code = 11-20 /HPF See_Comment A [Automa kar RBCU) message] The system which generated this result transmit kar reference range : <4-5. The reference range was not used to interpret this result as normal/abnormal . UA WBC CLUMPS (test Present /HPF None A code = WBCUCL) UA BACTERIA (test Rare /HPF None-Rare code = BACU) UA SQUAMOUS CELLS 0-5 (RARE) /HPF See_Comment [Autom ated (test code = SQU) message] T he system which generated this result transmit kar reference range : 0-5 (RARE). The reference range was not used to interpret this result as normal/abnormal . UA MUCUS (test code Rare /LPF See_Comment [Automa kar = MUCU) message] The system which generated this result transmit kar reference range : <Rare. The reference range was not used to interpret this result as normal/abnormal . UA AMORPHOUS Rare /HPF None A SEDIMENT (test code = AMORU) BASIC METABOLIC [id number] 07:14:00 Test Item Value Reference Range Interpretation Comments SODIUM (test code = 132 mmol/L 137-145 L NA) POTASSIUM (test code 6.4 mmol/L 3.4-5.0 HH IS THE SAMPLE = K) HEMOLYZED?:SONU MOLYSIS GRADE:Critical Value reported toFirs t Name:[id number] [facility] Name:RESULTS RE AD BACK AND VERIFIEDby N.LAB.VES, on 08/07/20, @ 071 4. CHLORIDE (test code = 100 mmol/L 98-107 N CL) CARBON DIOXIDE (test 23 mmol/L 22-30 N code = CO2) GLUCOSE (test code = 92 mg/dL 74-106 N GLU) BLOOD UREA NITROGEN 31 mg/dL 9-20 H (test code = BUN) GLOMERULAR FILTRATION 64 >60 The es timated RATE (test code = glomerular filtration GFR) rate is compute d usingpatient ra ce, age (>18), sex, and serum creatinine. If anyof the needed data elements are mi ssing the Laboratory cannot compute an kevin mation of the glomerul ar filtration rate . CREATININE (test code 1.6 mg/dL 0.7-1.3 H = CREAT) CALCIUM (test code = 8.4 mg/dL 8.4-10.2 N CA) [id number] 07:14:00 Test Item Value Reference Range Interpretation Comments PHOSPHOROUS (test code = PHOS) 3.5 mg/dL 2.5-4.5 N [id number] 07:14:00 Test Item Value Reference Range Interpretation Comments MAGNESIUM (test code = MAG) 1.1 mg/dL 1.6-2.3 L CBC W/AUTO [id number] 06:42:00 Test Item Value Reference Range Interpretation Comments WHITE BLOOD CELL (test code = 8.0 x10 3/uL 5.0-12.0 N WBC) RED BLOOD CELL (test code = 2.50 x10 6/uL 4.70-6.10 L RBC) HEMOGLOBIN (test code = HGB) 7.4 g/dL 14.0-18.0 L HEMATOCRIT (test code = HCT) 23.3 % 37.0-49.0 L MEAN CELL VOLUME (test code = 93 fL 80-94 N MCV) MEAN CELL HGB (test code = MCH) 29.6 pg 27-31 N MEAN CELL HGB CONCENTRATION 31.8 g/dL 33-37 L (test code = MCHC) RED CELL DISTRIBUTION WIDTH 19.7 % 11.5-15.5 H (test code = RDW) PLATELET COUNT (test code = 148 x10 3/uL 130-400 N PLT) MEAN PLATELET VOLUME (test code 10.2 fL 9.4-16.4 N = MPV) NEUTROPHIL % (test code = NT%) 92.4 % 43-65 H IMMATURE GRANULOCYTE % (test 1.0 % 0.0-2.0 N code = IG%) LYMPHOCYTE % (test code = LY%) 1.9 % 20.5-45.5 L MONOCYTE % (test code = MO%) 4.2 % 5.5-11.7 L EOSINOPHIL % (test code = EO%) 0.4 % 0.9-2.9 L BASOPHIL % (test code = BA%) 0.1 % 0.2-1.0 L NUCLEATED RBC % (test code = 0.0 % 0-1.0 N NRBC%) NEUTROPHIL # (test code = NT#) 7.42 x10 3/uL 2.2-4.8 H IMMATURE GRANULOCYTE # (test 0.08 x10 3/uL 0-0.03 H code = IG#) LYMPHOCYTE # (test code = LY#) 0.15 x10 3/uL 1.3-2.9 L MONOCYTE # (test code = MO#) 0.34 x10 3/uL 0.3-0.8 N EOSINOPHIL # (test code = EO#) 0.03 x10 3/uL 0.0-0.2 N BASOPHIL # (test code = BA#) 0.01 x10 3/uL 0.0-0.1 N [id number] 06:01:00 Test Item Value Reference Range Interpretation Comments GLUBED (test code = GLUBED) 89 MG/DL 74-106 N [id number] 20:56:00 Test Item Value Reference Range Interpretation Comments GLUBED (test code = GLUBED) 106 MG/DL 74-106 N [id number] 17:04:00 Test Item Value Reference Range Interpretation Comments GLUBED (test code = GLUBED) 96 MG/DL 74-106 N BASIC METABOLIC [id number] 13:03:00 Test Item Value Reference Range Interpretation Comments SODIUM (test code = 133 mmol/L 137-145 L NA) POTASSIUM (test code 6.0 mmol/L 3.4-5.0 H IS THE SAMPLE = K) HEMOLYZED?:SONU MOLYSIS GRADE: CHLORIDE (test code = 101 mmol/L 98-107 N CL) CARBON DIOXIDE (test 24 mmol/L 22-30 N code = CO2) GLUCOSE (test code = 80 mg/dL 74-106 N GLU) BLOOD UREA NITROGEN 25 mg/dL 9-20 H (test code = BUN) GLOMERULAR FILTRATION 90 >60 The es timated RATE (test code = glomerular filtration GFR) rate is compute d usingpatient ra ce, age (>18), sex, and serum creatinine. If anyof the needed data elements are mi ssing the Laboratory cannot compute an kevin mation of the glomerul ar filtration rate . CREATININE (test code 1.2 mg/dL 0.7-1.3 N = CREAT) CALCIUM (test code = 8.9 mg/dL 8.4-10.2 N CA) CBC W/AUTO [id number] 12:42:00 Test Item Value Reference Range Interpretation Comments WHITE BLOOD CELL (test code = 6.2 x10 3/uL 5.0-12.0 N WBC) RED BLOOD CELL (test code = 2.62 x10 6/uL 4.70-6.10 L RBC) HEMOGLOBIN (test code = HGB) 7.7 g/dL 14.0-18.0 L HEMATOCRIT (test code = HCT) 24.9 % 37.0-49.0 L MEAN CELL VOLUME (test code = 95 fL 80-94 H MCV) MEAN CELL HGB (test code = MCH) 29.4 pg 27-31 N MEAN CELL HGB CONCENTRATION 30.9 g/dL 33-37 L (test code = MCHC) RED CELL DISTRIBUTION WIDTH 19.1 % 11.5-15.5 H (test code = RDW) PLATELET COUNT (test code = 174 x10 3/uL 130-400 N PLT) MEAN PLATELET VOLUME (test code 9.9 fL 9.4-16.4 N = MPV) NEUTROPHIL % (test code = NT%) 76.9 % 43-65 H IMMATURE GRANULOCYTE % (test 0.3 % 0.0-2.0 N code = IG%) LYMPHOCYTE % (test code = LY%) 12.3 % 20.5-45.5 L MONOCYTE % (test code = MO%) 7.1 % 5.5-11.7 N EOSINOPHIL % (test code = EO%) 3.2 % 0.9-2.9 H BASOPHIL % (test code = BA%) 0.2 % 0.2-1.0 N NUCLEATED RBC % (test code = 0.0 % 0-1.0 N NRBC%) NEUTROPHIL # (test code = NT#) 4.73 x10 3/uL 2.2-4.8 N IMMATURE GRANULOCYTE # (test 0.02 x10 3/uL 0-0.03 N code = IG#) LYMPHOCYTE # (test code = LY#) 0.76 x10 3/uL 1.3-2.9 L MONOCYTE # (test code = MO#) 0.44 x10 3/uL 0.3-0.8 N EOSINOPHIL # (test code = EO#) 0.20 x10 3/uL 0.0-0.2 N BASOPHIL # (test code = BA#) 0.01 x10 3/uL 0.0-0.1 N [id number] 12:09:00 Test Item Value Reference Range Interpretation Comments GLUBED (test code = GLUBED) 73 MG/DL 74-106 L BASIC METABOLIC [id number] 05:02:00 Test Item Value Reference Range Interpretation Comments SODIUM (test code = 133 mmol/L 137-145 L NA) POTASSIUM (test code 6.2 mmol/L 3.4-5.0 H IS THE SAMPLE = K) HEMOLYZED?:SONU MOLYSIS GRADE:0 CHLORIDE (test code = 102 mmol/L 98-107 N CL) CARBON DIOXIDE (test 22 mmol/L 22-30 N code = CO2) GLUCOSE (test code = 91 mg/dL 74-106 N GLU) BLOOD UREA NITROGEN 26 mg/dL 9-20 H (test code = BUN) GLOMERULAR FILTRATION 82 >60 The es timated RATE (test code = glomerular filtration GFR) rate is compute d usingpatient ra ce, age (>18), sex, and serum creatinine. If anyof the needed data elements are mi ssing the Laboratory cannot compute an kevin mation of the glomerul ar filtration rate . CREATININE (test code 1.3 mg/dL 0.7-1.3 N = CREAT) CALCIUM (test code = 8.8 mg/dL 8.4-10.2 N CA) CBC W/AUTO [id number] 04:52:00 Test Item Value Reference Range Interpretation Comments WHITE BLOOD CELL (test code = 7.3 x10 3/uL 5.0-12.0 N WBC) RED BLOOD CELL (test code = 2.31 x10 6/uL 4.70-6.10 L RBC) HEMOGLOBIN (test code = HGB) 6.7 g/dL 14.0-18.0 L HEMATOCRIT (test code = HCT) 22.0 % 37.0-49.0 L MEAN CELL VOLUME (test code = 95 fL 80-94 H MCV) MEAN CELL HGB (test code = MCH) 29.0 pg 27-31 N MEAN CELL HGB CONCENTRATION 30.5 g/dL 33-37 L (test code = MCHC) RED CELL DISTRIBUTION WIDTH 19.0 % 11.5-15.5 H (test code = RDW) PLATELET COUNT (test code = 174 x10 3/uL 130-400 N PLT) MEAN PLATELET VOLUME (test code 10.0 fL 9.4-16.4 N = MPV) NEUTROPHIL % (test code = NT%) 77.1 % 43-65 H IMMATURE GRANULOCYTE % (test 0.5 % 0.0-2.0 N code = IG%) LYMPHOCYTE % (test code = LY%) 11.3 % 20.5-45.5 L MONOCYTE % (test code = MO%) 7.6 % 5.5-11.7 N EOSINOPHIL % (test code = EO%) 3.4 % 0.9-2.9 H BASOPHIL % (test code = BA%) 0.1 % 0.2-1.0 L NUCLEATED RBC % (test code = 0.0 % 0-1.0 N NRBC%) NEUTROPHIL # (test code = NT#) 5.64 x10 3/uL 2.2-4.8 H IMMATURE GRANULOCYTE # (test 0.04 x10 3/uL 0-0.03 H code = IG#) LYMPHOCYTE # (test code = LY#) 0.83 x10 3/uL 1.3-2.9 L MONOCYTE # (test code = MO#) 0.56 x10 3/uL 0.3-0.8 N EOSINOPHIL # (test code = EO#) 0.25 x10 3/uL 0.0-0.2 H BASOPHIL # (test code = BA#) 0.01 x10 3/uL 0.0-0.1 N [id number] 20:46:00 Test Item Value Reference Range Interpretation Comments GLUBED (test code = GLUBED) 83 MG/DL 74-106 N COVID 19 Asymptomatic IH [id number] 04:05:00 Test Item Value Reference Range Interpretation Comments COVID 19 Asymptomatic IH AG (test NEGATIVE Negative code = COVNONPUIAG) [id number] 21:21:00 Test Item Value Reference Range Interpretation Comments GLUBED (test code = GLUBED) 93 MG/DL 74-106 N [id number] 16:43:00 Test Item Value Reference Range Interpretation Comments GLUBED (test code = GLUBED) 88 MG/DL 74-106 N [id number] 12:28:00 Test Item Value Reference Range Interpretation Comments GLUBED (test code = GLUBED) 104 MG/DL 74-106 N [id number] 05:41:00 Test Item Value Reference Range Interpretation Comments GLUBED (test code = GLUBED) 94 MG/DL 74-106 N [id number] 17:54:00 Test Item Value Reference Range Interpretation Comments GLUBED (test code = GLUBED) 116 MG/DL 74-106 H [id number] 12:49:00 Test Item Value Reference Range Interpretation Comments GLUBED (test code = GLUBED) 107 MG/DL 74-106 H [id number] 05:51:00 Test Item Value Reference Range Interpretation Comments GLUBED (test code = GLUBED) 81 MG/DL 74-106 N [id number] 21:20:00 Test Item Value Reference Range Interpretation Comments GLUBED (test code = GLUBED) 110 MG/DL 74-106 H [id number] 21:20:00 Test Item Value Reference Range Interpretation Comments GLUBED (test code = GLUBED) 111 MG/DL 74-106 H [id number] 05:56:00 Test Item Value Reference Range Interpretation Comments GLUBED (test code = GLUBED) 102 MG/DL 74-106 N [id number] 20:53:00 Test Item Value Reference Range Interpretation Comments GLUBED (test code = GLUBED) 93 MG/DL 74-106 N COMPREHENSIVE METABOLIC [id number] 13:36:00 Test Item Value Reference Range Interpretation Comments SODIUM (test code = 136 mmol/L 137-145 L NA) POTASSIUM (test code 4.8 mmol/L 3.4-5.0 N = K) CHLORIDE (test code 104 mmol/L 98-107 N = CL) CARBON DIOXIDE (test 23 mmol/L 22-30 N code = CO2) GLUCOSE (test code = 92 mg/dL 74-106 N GLU) BLOOD UREA NITROGEN 38 mg/dL 9-20 H (test code = BUN) GLOMERULAR 56 >60 L The estimated FILTRATION RATE glomerular f iltration (test code = GFR) rate is co mputed usingpatient ra ce, age (>18), sex, and serum creatinine. If anyof the needed data elements are mi ssing the Laboratory cannot compute an kevin mation of the glomerul ar filtration rate . CREATININE (test 1.8 mg/dL 0.7-1.3 H code = CREAT) TOTAL PROTEIN (test 6.6 g/dL 6.3-8.2 N code = PROT) ALBUMIN (test code = 3.3 g/dL 3.5-5.0 L ALB) CALCIUM (test code = 9.1 mg/dL 8.4-10.2 N CA) BILIRUBIN TOTAL 0.7 mg/dL 0.2-1.3 N "A positive bias may (test code = BILT) occur for patients taking Eltrombo pag(a bone marrow sti mulant used to treat thrombocytopeni a andaplastic ane ezequiel)." BILIRUBIN CONJUGATED 0 mg/dL 0-0.3 N "A posi tive bias may (test code = BILCON) occur f or patients taking Eltrombo pag(a bone marrow sti mulant used to treat thrombocytopeni a andaplastic ane ezequiel)." C ONJUGATE D BILIRUBIN IS THE REPLACEMENT ASS AY FOR DIRECTBILIRUBIN . BILIRUBIN 0.3 mg/dL 0-1.1 N UNCONJUGATED (test code = BILUNC) SGOT/AST (test code 48 U/L 15-46 H = AST) SGPT/ALT (test code 45 U/L 0-34 H = ALT) ALKALINE PHOSPHATASE 95 U/L 38-126 N (test code = ALKP) COMPREHENSIVE METABOLIC [id number] 13:32:00 Test Item Value Reference Range Interpretation Comments SODIUM (test code = 136 mmol/L 137-145 L NA) POTASSIUM (test code 4.8 mmol/L 3.4-5.0 N = K) CHLORIDE (test code 104 mmol/L 98-107 N = CL) CARBON DIOXIDE (test 23 mmol/L 22-30 N code = CO2) GLUCOSE (test code = 92 mg/dL 74-106 N GLU) BLOOD UREA NITROGEN 38 mg/dL 9-20 H (test code = BUN) GLOMERULAR 56 >60 L The estimated FILTRATION RATE glomerular f iltration (test code = GFR) rate is co mputed usingpatient ra ce, age (>18), sex, and serum creatinine. If anyof the needed data elements are mi ssing the Laboratory cannot compute an kevin mation of the glomerul ar filtration rate . CREATININE (test 1.8 mg/dL 0.7-1.3 H code = CREAT) TOTAL PROTEIN (test 6.6 g/dL 6.3-8.2 N code = PROT) ALBUMIN (test code = 3.3 g/dL 3.5-5.0 L ALB) CALCIUM (test code = 9.1 mg/dL 8.4-10.2 N CA) BILIRUBIN TOTAL 0.7 mg/dL 0.2-1.3 N "A positive bias may (test code = BILT) occur for patients taking Eltrombo pag(a bone marrow sti mulant used to treat thrombocytopeni a andaplastic ane ezequiel)." BILIRUBIN CONJUGATED 0 mg/dL 0-0.3 N "A posi tive bias may (test code = BILCON) occur f or patients taking Eltrombo pag(a bone marrow sti mulant used to treat thrombocytopeni a andaplastic ane ezequiel)." C ONJUGATE D BILIRUBIN IS THE REPLACEMENT ASS AY FOR DIRECTBILIRUBIN . BILIRUBIN 0.3 mg/dL 0-1.1 N UNCONJUGATED (test code = BILUNC) SGOT/AST (test code 48 U/L 15-46 H = AST) SGPT/ALT (test code U/L 0-34 = ALT) ALKALINE PHOSPHATASE 95 U/L 38-126 N (test code = ALKP) CBC W/AUTO [id number] 13:17:00 Test Item Value Reference Range Interpretation Comments WHITE BLOOD CELL (test code = 7.8 x10 3/uL 5.0-12.0 N WBC) RED BLOOD CELL (test code = 2.60 x10 6/uL 4.70-6.10 L RBC) HEMOGLOBIN (test code = HGB) 7.7 g/dL 14.0-18.0 L HEMATOCRIT (test code = HCT) 24.6 % 37.0-49.0 L MEAN CELL VOLUME (test code = 95 fL 80-94 H MCV) MEAN CELL HGB (test code = MCH) 29.6 pg 27-31 N MEAN CELL HGB CONCENTRATION 31.3 g/dL 33-37 L (test code = MCHC) RED CELL DISTRIBUTION WIDTH 17.5 % 11.5-15.5 H (test code = RDW) PLATELET COUNT (test code = 195 x10 3/uL 130-400 N PLT) MEAN PLATELET VOLUME (test code 10.3 fL 9.4-16.4 N = MPV) NEUTROPHIL % (test code = NT%) 79.3 % 43-65 H IMMATURE GRANULOCYTE % (test 0.4 % 0.0-2.0 N code = IG%) LYMPHOCYTE % (test code = LY%) 8.8 % 20.5-45.5 L MONOCYTE % (test code = MO%) 6.8 % 5.5-11.7 N EOSINOPHIL % (test code = EO%) 4.3 % 0.9-2.9 H BASOPHIL % (test code = BA%) 0.4 % 0.2-1.0 N NUCLEATED RBC % (test code = 0.0 % 0-1.0 N NRBC%) NEUTROPHIL # (test code = NT#) 6.16 x10 3/uL 2.2-4.8 H IMMATURE GRANULOCYTE # (test 0.03 x10 3/uL 0-0.03 N code = IG#) LYMPHOCYTE # (test code = LY#) 0.68 x10 3/uL 1.3-2.9 L MONOCYTE # (test code = MO#) 0.53 x10 3/uL 0.3-0.8 N EOSINOPHIL # (test code = EO#) 0.33 x10 3/uL 0.0-0.2 H BASOPHIL # (test code = BA#) 0.03 x10 3/uL 0.0-0.1 N [id number] 21:55:00 Test Item Value Reference Range Interpretation Comments GLUBED (test code = GLUBED) 106 MG/DL 74-106 N COMPREHENSIVE METABOLIC [id number] 10:34:00 Test Item Value Reference Range Interpretation Comments SODIUM (test code = 135 mmol/L 137-145 L NA) POTASSIUM (test code 6.1 mmol/L 3.4-5.0 H IS THE SAMPLE = K) HEMOLYZED?:SONU MOLYSIS GRADE:0 CHLORIDE (test code 104 mmol/L 98-107 N = CL) CARBON DIOXIDE (test 22 mmol/L 22-30 N code = CO2) GLUCOSE (test code = 125 mg/dL 74-106 H GLU) BLOOD UREA NITROGEN 41 mg/dL 9-20 H (test code = BUN) GLOMERULAR 47 >60 L The estimated FILTRATION RATE glomerular f iltration (test code = GFR) rate is co mputed usingpatient ra ce, age (>18), sex, and serum creatinine. If anyof the needed data elements are mi ssing the Laboratory cannot compute an kevin mation of the glomerul ar filtration rate . CREATININE (test 2.1 mg/dL 0.7-1.3 H code = CREAT) TOTAL PROTEIN (test 6.2 g/dL 6.3-8.2 L code = PROT) ALBUMIN (test code = 3.2 g/dL 3.5-5.0 L ALB) CALCIUM (test code = 8.9 mg/dL 8.4-10.2 N CA) BILIRUBIN TOTAL 0.7 mg/dL 0.2-1.3 N "A positive bias may (test code = BILT) occur for patients taking Eltrombo pag(a bone marrow sti mulant used to treat thrombocytopeni a andaplastic ane ezequiel)." BILIRUBIN CONJUGATED 0 mg/dL 0-0.3 N "A posi tive bias may (test code = BILCON) occur f or patients taking Eltrombo pag(a bone marrow sti mulant used to treat thrombocytopeni a andaplastic ane ezequiel)." C ONJUGATE D BILIRUBIN IS THE REPLACEMENT ASS AY FOR DIRECTBILIRUBIN . BILIRUBIN 0.4 mg/dL 0-1.1 N UNCONJUGATED (test code = BILUNC) SGOT/AST (test code 31 U/L 15-46 N = AST) SGPT/ALT (test code 32 U/L 0-34 N = ALT) ALKALINE PHOSPHATASE 86 U/L 38-126 N (test code = ALKP) CBC W/AUTO [id number] 10:11:00 Test Item Value Reference Range Interpretation Comments WHITE BLOOD CELL (test code = 8.4 x10 3/uL 5.0-12.0 N WBC) RED BLOOD CELL (test code = 2.58 x10 6/uL 4.70-6.10 L RBC) HEMOGLOBIN (test code = HGB) 7.4 g/dL 14.0-18.0 L HEMATOCRIT (test code = HCT) 24.7 % 37.0-49.0 L MEAN CELL VOLUME (test code = 96 fL 80-94 H MCV) MEAN CELL HGB (test code = MCH) 28.7 pg 27-31 N MEAN CELL HGB CONCENTRATION 30.0 g/dL 33-37 L (test code = MCHC) RED CELL DISTRIBUTION WIDTH 17.2 % 11.5-15.5 H (test code = RDW) PLATELET COUNT (test code = 209 x10 3/uL 130-400 N PLT) MEAN PLATELET VOLUME (test code 10.3 fL 9.4-16.4 N = MPV) NEUTROPHIL % (test code = NT%) 80.8 % 43-65 H IMMATURE GRANULOCYTE % (test 0.5 % 0.0-2.0 N code = IG%) LYMPHOCYTE % (test code = LY%) 9.2 % 20.5-45.5 L MONOCYTE % (test code = MO%) 6.0 % 5.5-11.7 N EOSINOPHIL % (test code = EO%) 2.9 % 0.9-2.9 N BASOPHIL % (test code = BA%) 0.6 % 0.2-1.0 N NUCLEATED RBC % (test code = 0.0 % 0-1.0 N NRBC%) NEUTROPHIL # (test code = NT#) 6.77 x10 3/uL 2.2-4.8 H IMMATURE GRANULOCYTE # (test 0.04 x10 3/uL 0-0.03 H code = IG#) LYMPHOCYTE # (test code = LY#) 0.77 x10 3/uL 1.3-2.9 L MONOCYTE # (test code = MO#) 0.50 x10 3/uL 0.3-0.8 N EOSINOPHIL # (test code = EO#) 0.24 x10 3/uL 0.0-0.2 H BASOPHIL # (test code = BA#) 0.05 x10 3/uL 0.0-0.1 N [id number] 01:06:00 Test Item Value Reference Range Interpretation Comments POTASSIUM (test code = 5.7 mmol/L 3.4-5.0 H IS TH E SAMPLE K) HEMOLYZED?:SONU MOLYSI S GRADE:N/A - XR CHEST 1 [id number] 16:37:00 [facility] 1985 Sex: M FAX: Raphael Davila MD Constable: [facility]: ADM FAX: Tessa Jade MD [phone] Name: JORGE GOINS [facility] : 1985 Age/S: 34/M [address] Unit #: [id number] Loc: C.33[address] [place] [address] Phys: Tessa Wolfe MD Acct: [id number] Dis Date: Status: ADM IN PHONE #: [phone] Exam Date: 07/29/2020 1619 FAX #: [phone] Reason: sob,r/o aspiration pneumonia EXAMS: CPT CODE: [id number] XR CHEST 1 V 26875 EXAMINATION: Frontal chest radiograph INDICATION: Pneumonia COMPARISON: 07/20/2020 radiograph, CT 06/21/2020 FINDINGS: Tracheostomy terminates over trachea. Thoracoabdominal aortic stent graft. No pleural effusion or pneumothorax. Mild hazy opacities of the right lung base may be due to atelectasis and/or pneumonia. IMPRESSION: Mild hazy atelectasis or pneumonia at the right lung base. Electronically Signedby Amy Carson on 07/29/2020 at 0708 Reported and signed by: Santosh Carson M.D. CC: Raphael Robins; Tessa Wolfe MD Technologist: ALEN TORREZ [facility] Date/Time/By: 07/29/2020 (1647) : By: [email or web address] PAGE 1 Signed Report FAX: Raphael Davila MD Constable: [facility]: ADM FAX: Tessa Jade MD [phone] Name: RACHAEL GOINS [facility] [place] : 1985 Age/S: 34/M [address] Unit #: [id number] Loc: C.33[address] [place] [address] Phys: Tessa Wolfe MD Acct: [id number] Dis Date: Status: ADM IN PHONE #: [phone] ExamDate: 07/29/2020 1619 FAX #: [phone] Reason: sob,r/o aspiration pneumonia EXAMS: CPT CODE: [id number] XR CHEST 1 V 50569 (Continued) Orig Print D/T: S: 07/29/2020 (1641) PAGE 2 Signed [id number] 15:47:00 Test Item Value Reference Range Interpretation Comments POTASSIUM (test code = 6.1 mmol/L 3.4-5.0 H IS TH E SAMPLE K) HEMOLYZED?:SONU MOLYSI S GRADE:0 - CT HEAD/BRAIN W/O [id number] 11:49:00 [facility] : 1985 Sex: M FAX: Raphael Davila MD Constable: St: ADM FAX: Tessa Jade MD [phone] Name: JORGE GOINS : 1985 Age/S: 34/M [address] Unit: [id number] Loc: C3320 [place] [address] Phys: Tessa Wolfe MD Acct: [id number] Dis Date: Status: ADM IN PHONE #: [phone] Exam Date: 07/29/2020 1130 FAX #: [phone] Reason: HEADACHE EXAMS: CPT CODE: [id number] CT HEAD/BRAIN W/O CONT [id number] EXAM: - CT HEAD/BRAIN W/O CONT LOCATION: C3 HISTORY: 34 years-year old Male with HEADACHE TECHNIQUE: Computerized tomography images from the skull base to the vertex were obtained. Coronal and sagittal reformatted images are provided. This exam was performed according to our departmental dose-optimization program, which includes automated exposure control, adjustment of the mA and/or kV according to patient size and/or use of iterative reconstruction technique COMPARISON: 07/19/2020 FINDINGS: Brain: Focal cortical calcifications identified in the left frontal lobe. The brain parenchyma is age appropriate. There is no evidence of an acute territorial infarct. Hemorrhage: There is no CT evidence of acute intracranial hemorrhage. Mass/edema: There is no CT evidence of mass effect, midline shift, or parenchymal edema. Ventricles: There is no evidence of hydrocephalus. Bones: There is no evidence of acute displaced calvarial fracture. Sinuses: The visualized portions of the paranasal sinuses and mastoid air cells are free of significant opacification. Other/Soft Tissues: Unremarkable. IMPRESSION: 1. No CT evidence of acute intracranial abnormality. 2. Focal dystropic cortical calcifications in the left frontal lobe. PAGE 1 Signed Report (CONTINUED) FAX: Raphael Davila MD Constable: St: ADM FAX: Tessa Jade MD [phone] Name: JORGE GOINS : 1985 Age/S: 34/M [address] Unit: [id number] Loc: C.33[address] [place] [address] Phys: Tessa Wolfe MD Acct: [id number] Dis Date: Status: ADM IN PHONE #: [phone] Exam Date: 07/29/2020 1130 FAX #: [phone] Reason: HEADACHE EXAMS: CPT CODE: [id number] CT HEAD/BRAIN W/O CONT 86064 (Continued) at 1149 Reported and signed by: Denny Mohamud MD CC: Raphael Davila MD; Tessa Wolfe MD Technologist: TAN ANDREWS,RT(R,CT); Lexie Self; ... Trnscrd Dt/Tm: 07/29/2020 (1149) t.SDR.[email or web address] Orig Print D/T: S: 07/29/2020(1152 PAGE 2 Signed ReportCOMPREHENSIVE METABOLIC [id number] 09:46:00 Test Item Value Reference Range Interpretation Comments SODIUM (test code = 133 mmol/L 137-145 L NA) POTASSIUM (test code 6.2 mmol/L 3.4-5.0 H IS THE SAMPLE = K) HEMOLYZED?: NOH EMOLYSIS GRADE: 0 (<15) CHLORIDE (test code 104 mmol/L 98-107 N = CL) CARBON DIOXIDE (test 23 mmol/L 22-30 N code = CO2) GLUCOSE (test code = 92 mg/dL 74-106 N GLU) BLOOD UREA NITROGEN 45 mg/dL 9-20 H (test code = BUN) GLOMERULAR 45 >60 L The estimated FILTRATION RATE glomerular f iltration (test code = GFR) rate is co mputed usingpatient ra ce, age (>18), sex, and serum creatinine. If anyof the needed data elements are mi ssing the Laboratory cannot compute an kevin mation of the glomerul ar filtration rate . CREATININE (test 2.2 mg/dL 0.7-1.3 H code = CREAT) TOTAL PROTEIN (test 6.3 g/dL 6.3-8.2 N code = PROT) ALBUMIN (test code = 3.2 g/dL 3.5-5.0 L ALB) CALCIUM (test code = 8.9 mg/dL 8.4-10.2 N CA) BILIRUBIN TOTAL 0.8 mg/dL 0.2-1.3 N "A positive bias may (test code = BILT) occur for patients taking Eltrombo pag(a bone marrow sti mulant used to treat thrombocytopeni a andaplastic ane ezequiel)." BILIRUBIN CONJUGATED 0 mg/dL 0-0.3 N "A posi tive bias may (test code = BILCON) occur f or patients taking Eltrombo pag(a bone marrow sti mulant used to treat thrombocytopeni a andaplastic ane ezequiel)." C ONJUGATE D BILIRUBIN IS THE REPLACEMENT ASS AY FOR DIRECTBILIRUBIN . BILIRUBIN 0.5 mg/dL 0-1.1 N UNCONJUGATED (test code = BILUNC) SGOT/AST (test code 52 U/L 15-46 H = AST) SGPT/ALT (test code 34 U/L 0-34 N = ALT) ALKALINE PHOSPHATASE 85 U/L 38-126 N (test code = ALKP) CBC W/AUTO [id number] 09:36:00 Test Item Value Reference Range Interpretation Comments WHITE BLOOD CELL (test code = 9.1 x10 3/uL 5.0-12.0 N WBC) RED BLOOD CELL (test code = 2.70 x10 6/uL 4.70-6.10 L RBC) HEMOGLOBIN (test code = HGB) 7.6 g/dL 14.0-18.0 L HEMATOCRIT (test code = HCT) 25.1 % 37.0-49.0 L MEAN CELL VOLUME (test code = 93 fL 80-94 N MCV) MEAN CELL HGB (test code = MCH) 28.1 pg 27-31 N MEAN CELL HGB CONCENTRATION 30.3 g/dL 33-37 L (test code = MCHC) RED CELL DISTRIBUTION WIDTH 16.9 % 11.5-15.5 H (test code = RDW) PLATELET COUNT (test code = 195 x10 3/uL 130-400 N PLT) MEAN PLATELET VOLUME (test code 10.2 fL 9.4-16.4 N = MPV) NEUTROPHIL % (test code = NT%) 81.4 % 43-65 H IMMATURE GRANULOCYTE % (test 0.6 % 0.0-2.0 N code = IG%) LYMPHOCYTE % (test code = LY%) 8.5 % 20.5-45.5 L MONOCYTE % (test code = MO%) 6.7 % 5.5-11.7 N EOSINOPHIL % (test code = EO%) 2.1 % 0.9-2.9 N BASOPHIL % (test code = BA%) 0.7 % 0.2-1.0 N NUCLEATED RBC % (test code = 0.0 % 0-1.0 N NRBC%) NEUTROPHIL # (test code = NT#) 7.39 x10 3/uL 2.2-4.8 H IMMATURE GRANULOCYTE # (test 0.05 x10 3/uL 0-0.03 H code = IG#) LYMPHOCYTE # (test code = LY#) 0.77 x10 3/uL 1.3-2.9 L MONOCYTE # (test code = MO#) 0.61 x10 3/uL 0.3-0.8 N EOSINOPHIL # (test code = EO#) 0.19 x10 3/uL 0.0-0.2 N BASOPHIL # (test code = BA#) 0.06 x10 3/uL 0.0-0.1 N [id number] 06:04:00 Test Item Value Reference Range Interpretation Comments GLUBED (test code = GLUBED) 85 MG/DL 74-106 N COMPREHENSIVE METABOLIC [id number] 04:23:00 Test Item Value Reference Range Interpretation Comments SODIUM (test code = 134 mmol/L 137-145 L NA) POTASSIUM (test code 5.6 mmol/L 3.4-5.0 H IS THE SAMPLE = K) HEMOLYZED?:NHEM OLYSIS GRADE: CHLORIDE (test code 105 mmol/L 98-107 N = CL) CARBON DIOXIDE (test 22 mmol/L 22-30 N code = CO2) GLUCOSE (test code = 106 mg/dL 74-106 N GLU) BLOOD UREA NITROGEN 54 mg/dL 9-20 H (test code = BUN) GLOMERULAR 35 >60 L The estimated FILTRATION RATE glomerular f iltration (test code = GFR) rate is co mputed usingpatient ra ce, age (>18), sex, and serum creatinine. If anyof the needed data elements are mi ssing the Laboratory cannot compute an kevin mation of the glomerul ar filtration rate . CREATININE (test 2.7 mg/dL 0.7-1.3 H code = CREAT) TOTAL PROTEIN (test 5.9 g/dL 6.3-8.2 L code = PROT) ALBUMIN (test code = 3.0 g/dL 3.5-5.0 L ALB) CALCIUM (test code = 8.6 mg/dL 8.4-10.2 N CA) BILIRUBIN TOTAL 0.7 mg/dL 0.2-1.3 N "A positive bias may (test code = BILT) occur for patients taking Eltrombo pag(a bone marrow sti mulant used to treat thrombocytopeni a andaplastic ane ezequiel)." BILIRUBIN CONJUGATED 0 mg/dL 0-0.3 N "A posi tive bias may (test code = BILCON) occur f or patients taking Eltrombo pag(a bone marrow sti mulant used to treat thrombocytopeni a andaplastic ane ezequiel)." C ONJUGATE D BILIRUBIN IS THE REPLACEMENT ASS AY FOR DIRECTBILIRUBIN . BILIRUBIN 0.3 mg/dL 0-1.1 N UNCONJUGATED (test code = BILUNC) SGOT/AST (test code 40 U/L 15-46 N = AST) SGPT/ALT (test code 27 U/L 0-34 N = ALT) ALKALINE PHOSPHATASE 78 U/L 38-126 N (test code = ALKP) CBC W/AUTO [id number] 03:51:00 Test Item Value Reference Range Interpretation Comments WHITE BLOOD CELL (test code = 8.9 x10 3/uL 5.0-12.0 N WBC) RED BLOOD CELL (test code = 2.60 x10 6/uL 4.70-6.10 L RBC) HEMOGLOBIN (test code = HGB) 7.4 g/dL 14.0-18.0 L HEMATOCRIT (test code = HCT) 23.6 % 37.0-49.0 L MEAN CELL VOLUME (test code = 91 fL 80-94 N MCV) MEAN CELL HGB (test code = MCH) 28.5 pg 27-31 N MEAN CELL HGB CONCENTRATION 31.4 g/dL 33-37 L (test code = MCHC) RED CELL DISTRIBUTION WIDTH 16.4 % 11.5-15.5 H (test code = RDW) PLATELET COUNT (test code = 215 x10 3/uL 130-400 N PLT) MEAN PLATELET VOLUME (test code 10.5 fL 9.4-16.4 N = MPV) NEUTROPHIL % (test code = NT%) 79.9 % 43-65 H IMMATURE GRANULOCYTE % (test 0.7 % 0.0-2.0 N code = IG%) LYMPHOCYTE % (test code = LY%) 10.4 % 20.5-45.5 L MONOCYTE % (test code = MO%) 6.4 % 5.5-11.7 N EOSINOPHIL % (test code = EO%) 1.8 % 0.9-2.9 N BASOPHIL % (test code = BA%) 0.8 % 0.2-1.0 N NUCLEATED RBC % (test code = 0.0 % 0-1.0 N NRBC%) NEUTROPHIL # (test code = NT#) 7.09 x10 3/uL 2.2-4.8 H IMMATURE GRANULOCYTE # (test 0.06 x10 3/uL 0-0.03 H code = IG#) LYMPHOCYTE # (test code = LY#) 0.92 x10 3/uL 1.3-2.9 L MONOCYTE # (test code = MO#) 0.57 x10 3/uL 0.3-0.8 N EOSINOPHIL # (test code = EO#) 0.16 x10 3/uL 0.0-0.2 N BASOPHIL # (test code = BA#) 0.07 x10 3/uL 0.0-0.1 N [id number] 21:00:00 Test Item Value Reference Range Interpretation Comments GLUBED (test code = GLUBED) 80 MG/DL 74-106 N [id number] 17:50:00 Test Item Value Reference Range Interpretation Comments GLUBED (test code = GLUBED) 91 MG/DL 74-106 N [id number] 12:33:00 Test Item Value Reference Range Interpretation Comments GLUBED (test code = GLUBED) 95 MG/DL 74-106 N [id number] 05:39:00 Test Item Value Reference Range Interpretation Comments GLUBED (test code = GLUBED) 106 MG/DL 74-106 N [id number] 20:37:00 Test Item Value Reference Range Interpretation Comments GLUBED (test code = GLUBED) 109 MG/DL 74-106 H [id number] 17:31:00 Test Item Value Reference Range Interpretation Comments GLUBED (test code = GLUBED) 112 MG/DL 74-106 H [id number] 19:28:00 Test Item Value Reference Range Interpretation Comments GLUBED (test code = GLUBED) 90 MG/DL 74-106 N FE W/TOTAL IRON BINDING CAP.[id number] 18:52:00 Test Item Value Reference Range Interpretation Comments IRON (test code = IRON) 74 ug/dL 49-181 N TOTAL IRON BINDING CAPACITY (test 241 ug/dL 261-462 L code = TIBC) IRON SATURATION (test code = FESAT) 31 % 20-55 N FE W/TOTAL IRON BINDING CAP.2020-07-24 18:31:00 Test Item Value Reference Range Interpretation Comments IRON (test code = IRON) 74 ug/dL 49-181 N TOTAL IRON BINDING CAPACITY (test ug/dL 261-462 code = TIBC) IRON SATURATION (test code = FESAT) % 20-55 HGB [id number] 18:00:00 Test Item Value Reference Range Interpretation Comments HEMOGLOBIN (test code = HGB) 8.1 g/dL 14.0-18.0 L HEMATOCRIT (test code = HCT) 25.8 % 37.0-49.0 L [id number] 13:05:00 Test Item Value Reference Range Interpretation Comments GLUBED (test code = GLUBED) 114 MG/DL 74-106 H [id number] 12:51:00 Test Item Value Reference Range Interpretation Comments GLUBED (test code = GLUBED) 127 MG/DL 74-106 H BASIC METABOLIC [id number] 03:55:00 Test Item Value Reference Range Interpretation Comments SODIUM (test code = 138 mmol/L 137-145 N NA) POTASSIUM (test code 4.7 mmol/L 3.4-5.0 N = K) CHLORIDE (test code = 108 mmol/L 98-107 H CL) CARBON DIOXIDE (test 21 mmol/L 22-30 L code = CO2) GLUCOSE (test code = 107 mg/dL 74-106 H GLU) BLOOD UREA NITROGEN 76 mg/dL 9-20 H (test code = BUN) GLOMERULAR FILTRATION 21 >60 L The es timated RATE (test code = glomerular filtration GFR) rate is compute d usingpatient ra ce, age (>18), sex, and serum creatinine. If anyof the needed data elements are mi ssing the Laboratory cannot compute an kevin mation of the glomerul ar filtration rate . CREATININE (test code 4.3 mg/dL 0.7-1.3 H = CREAT) CALCIUM (test code = 8.0 mg/dL 8.4-10.2 L CA) CBC W/AUTO [id number] 03:36:00 Test Item Value Reference Range Interpretation Comments WHITE BLOOD CELL (test code = 10.4 x10 3/uL 5.0-12.0 N WBC) RED BLOOD CELL (test code = 2.39 x10 6/uL 4.70-6.10 L RBC) HEMOGLOBIN (test code = HGB) 6.6 g/dL 14.0-18.0 L HEMATOCRIT (test code = HCT) 21.9 % 37.0-49.0 L MEAN CELL VOLUME (test code = 92 fL 80-94 N MCV) MEAN CELL HGB (test code = MCH) 27.6 pg 27-31 N MEAN CELL HGB CONCENTRATION 30.1 g/dL 33-37 L (test code = MCHC) RED CELL DISTRIBUTION WIDTH 15.7 % 11.5-15.5 H (test code = RDW) PLATELET COUNT (test code = 219 x10 3/uL 130-400 N PLT) MEAN PLATELET VOLUME (test code 11.2 fL 9.4-16.4 N = MPV) NEUTROPHIL % (test code = NT%) 86.5 % 43-65 H IMMATURE GRANULOCYTE % (test 0.7 % 0.0-2.0 N code = IG%) LYMPHOCYTE % (test code = LY%) 6.5 % 20.5-45.5 L MONOCYTE % (test code = MO%) 5.4 % 5.5-11.7 L EOSINOPHIL % (test code = EO%) 0.4 % 0.9-2.9 L BASOPHIL % (test code = BA%) 0.5 % 0.2-1.0 N NUCLEATED RBC % (test code = 0.0 % 0-1.0 N NRBC%) NEUTROPHIL # (test code = NT#) 8.99 x10 3/uL 2.2-4.8 H IMMATURE GRANULOCYTE # (test 0.07 x10 3/uL 0-0.03 H code = IG#) LYMPHOCYTE # (test code = LY#) 0.67 x10 3/uL 1.3-2.9 L MONOCYTE # (test code = MO#) 0.56 x10 3/uL 0.3-0.8 N EOSINOPHIL # (test code = EO#) 0.04 x10 3/uL 0.0-0.2 N BASOPHIL # (test code = BA#) 0.05 x10 3/uL 0.0-0.1 N [id number] 06:21:00 Test Item Value Reference Range Interpretation Comments GLUBED (test code = GLUBED) 102 MG/DL 74-106 N BASIC METABOLIC [id number] 03:23:00 Test Item Value Reference Range Interpretation Comments SODIUM (test code = 144 mmol/L 137-145 N NA) POTASSIUM (test code 4.1 mmol/L 3.4-5.0 N = K) CHLORIDE (test code = 111 mmol/L 98-107 H CL) CARBON DIOXIDE (test 23 mmol/L 22-30 N code = CO2) GLUCOSE (test code = 113 mg/dL 74-106 H GLU) BLOOD UREA NITROGEN 76 mg/dL 9-20 H (test code = BUN) GLOMERULAR FILTRATION 19 >60 L The es timated RATE (test code = glomerular filtration GFR) rate is compute d usingpatient ra ce, age (>18), sex, and serum creatinine. If anyof the needed data elements are mi ssing the Laboratory cannot compute an kevin mation of the glomerul ar filtration rate . CREATININE (test code 4.7 mg/dL 0.7-1.3 H = CREAT) CALCIUM (test code = 8.0 mg/dL 8.4-10.2 L CA) [id number] 03:23:00 Test Item Value Reference Range Interpretation Comments MAGNESIUM (test code = MAG) 2.1 mg/dL 1.6-2.3 N BASIC METABOLIC [id number] 03:20:00 Test Item Value Reference Range Interpretation Comments SODIUM (test code = 144 mmol/L 137-145 N NA) POTASSIUM (test code 4.1 mmol/L 3.4-5.0 N = K) CHLORIDE (test code = 111 mmol/L 98-107 H CL) CARBON DIOXIDE (test 23 mmol/L 22-30 N code = CO2) GLUCOSE (test code = 113 mg/dL 74-106 H GLU) BLOOD UREA NITROGEN 76 mg/dL 9-20 H (test code = BUN) GLOMERULAR FILTRATION 19 >60 L The es timated RATE (test code = glomerular filtration GFR) rate is compute d usingpatient ra ce, age (>18), sex, and serum creatinine. If anyof the needed data elements are mi ssing the Laboratory cannot compute an kevin mation of the glomerul ar filtration rate . CREATININE (test code 4.7 mg/dL 0.7-1.3 H = CREAT) CALCIUM (test code = 8.0 mg/dL 8.4-10.2 L CA) [id number] 03:20:00 Test Item Value Reference Range Interpretation Comments MAGNESIUM (test code = MAG) mg/dL 1.6-2.3 CBC W/AUTO [id number] 03:12:00 Test Item Value Reference Range Interpretation Comments WHITE BLOOD CELL (test code = 9.0 x10 3/uL 5.0-12.0 N WBC) RED BLOOD CELL (test code = 2.56 x10 6/uL 4.70-6.10 L RBC) HEMOGLOBIN (test code = HGB) 7.1 g/dL 14.0-18.0 L HEMATOCRIT (test code = HCT) 23.7 % 37.0-49.0 L MEAN CELL VOLUME (test code = 93 fL 80-94 N MCV) MEAN CELL HGB (test code = MCH) 27.7 pg 27-31 N MEAN CELL HGB CONCENTRATION 30.0 g/dL 33-37 L (test code = MCHC) RED CELL DISTRIBUTION WIDTH 15.4 % 11.5-15.5 N (test code = RDW) PLATELET COUNT (test code = 222 x10 3/uL 130-400 N PLT) MEAN PLATELET VOLUME (test code 10.9 fL 9.4-16.4 N = MPV) NEUTROPHIL % (test code = NT%) 83.2 % 43-65 H IMMATURE GRANULOCYTE % (test 0.6 % 0.0-2.0 N code = IG%) LYMPHOCYTE % (test code = LY%) 6.8 % 20.5-45.5 L MONOCYTE % (test code = MO%) 6.3 % 5.5-11.7 N EOSINOPHIL % (test code = EO%) 2.3 % 0.9-2.9 N BASOPHIL % (test code = BA%) 0.8 % 0.2-1.0 N NUCLEATED RBC % (test code = 0.0 % 0-1.0 N NRBC%) NEUTROPHIL # (test code = NT#) 7.50 x10 3/uL 2.2-4.8 H IMMATURE GRANULOCYTE # (test 0.05 x10 3/uL 0-0.03 H code = IG#) LYMPHOCYTE # (test code = LY#) 0.61 x10 3/uL 1.3-2.9 L MONOCYTE # (test code = MO#) 0.57 x10 3/uL 0.3-0.8 N EOSINOPHIL # (test code = EO#) 0.21 x10 3/uL 0.0-0.2 H BASOPHIL # (test code = BA#) 0.07 x10 3/uL 0.0-0.1 N [id number] 18:53:00 Test Item Value Reference Range Interpretation Comments GLUBED (test code = GLUBED) 91 MG/DL 74-106 N - XR SWLW FUNC W/C [id number] 13:02:00 [facility] : 1985 Sex: M FAX: William Jorge DO [phone] Constable: St: ADM FAX: Edy Adame MD [phone] Name: JORGE GOINS [facility] : 1985 Age/S: 34/M [address] Unit #: [id number] Loc: C.ICC2 [place] [address] Phys: William Chino DO Acct: [id number] Dis Date: Status: ADM IN PHONE #: [phone] Exam Date: 07/22/2020 1115 FAX #: [phone] Reason: TRACH PLACEMENT-PULLED PEG EXAMS: CPT CODE: [id number] XR SWLW FUNC W/CV 88822 Location code: B2 HISTORY: History of CVA TECHNIQUE: The patient was given various consistencies of contrasted food and fluoroscopic imaging was performed while the patient swallowed. FINDINGS: Single episode of aspiration with thin barium administered by straw. Flash penetration noted with subsequent swallows of thin barium. No penetration or aspiration was otherwise seen with any consistency of food. Normal swallowing reflex was seen. There was no pooling in the vallecula or pyriform sinuses. IMPRESSION: Single episode of aspiration with thin barium administered by straw. No other episodeof aspiration seen. For further details please refer to speech pathologist report. Fluoro time utilized 1.5 minutes. at 1302 Reported and signed by: Sebastián Colon MD CC: William Guerrier; Edy Olmedo MD Technologist: JON HASTINGS Trnmtrd Date/Time/By:07/22/2020 (8441) : By: [email or web address] PAGE 1 Signed Report FAX: William Jorge DO [phone] Constable: St: ADM FAX: Edy Adame MD [phone] Name: JORGE GOINS [facility] : 1985 Age/S: 34/M [address] Unit #: [id number] Loc: [address] [address] Phys: William Chino DO Acct: [id number] Dis Date: Status: ADM IN PHONE #: [phone] Exam Date: 07/22/2020 1115 FAX #: [phone] Reason: TRACH PLACEMENT-PULLED PEG EXAMS: CPT CODE: [id number] XR SWLW FUNC W/C V 36265 (Continued) Orig Print D/T: S: (5108) PAGE 2 Signed [id number] 12:23:00 Test Item Value Reference Range Interpretation Comments GLUBED (test code = GLUBED) 93 MG/DL 74-106 N [id number] 09:44:00 Test Item Value Reference Range Interpretation Comments GLUBED (test code = GLUBED) 89 MG/DL 74-106 N BASIC METABOLIC [id number] 04:21:00 Test Item Value Reference Range Interpretation Comments SODIUM (test code = 146 mmol/L 137-145 H NA) POTASSIUM (test code 4.0 mmol/L 3.4-5.0 N = K) CHLORIDE (test code = 113 mmol/L 98-107 H CL) CARBON DIOXIDE (test 22 mmol/L 22-30 N code = CO2) GLUCOSE (test code = 95 mg/dL 74-106 N GLU) BLOOD UREA NITROGEN 72 mg/dL 9-20 H (test code = BUN) GLOMERULAR FILTRATION 17 >60 L The es timated RATE (test code = glomerular filtration GFR) rate is compute d usingpatient ra ce, age (>18), sex, and serum creatinine. If anyof the needed data elements are mi ssing the Laboratory cannot compute an kevin mation of the glomerul ar filtration rate . CREATININE (test code 5.0 mg/dL 0.7-1.3 H = CREAT) CALCIUM (test code = 8.3 mg/dL 8.4-10.2 L CA) CBC W/AUTO [id number] 04:00:00 Test Item Value Reference Range Interpretation Comments WHITE BLOOD CELL (test code = 9.8 x10 3/uL 5.0-12.0 N WBC) RED BLOOD CELL (test code = 2.85 x10 6/uL 4.70-6.10 L RBC) HEMOGLOBIN (test code = HGB) 8.0 g/dL 14.0-18.0 L HEMATOCRIT (test code = HCT) 25.6 % 37.0-49.0 L MEAN CELL VOLUME (test code = 90 fL 80-94 N MCV) MEAN CELL HGB (test code = MCH) 28.1 pg 27-31 N MEAN CELL HGB CONCENTRATION 31.3 g/dL 33-37 L (test code = MCHC) RED CELL DISTRIBUTION WIDTH 15.3 % 11.5-15.5 N (test code = RDW) PLATELET COUNT (test code = 251 x10 3/uL 130-400 N PLT) MEAN PLATELET VOLUME (test code 11.3 fL 9.4-16.4 N = MPV) NEUTROPHIL % (test code = NT%) 84.9 % 43-65 H IMMATURE GRANULOCYTE % (test 0.6 % 0.0-2.0 N code = IG%) LYMPHOCYTE % (test code = LY%) 6.8 % 20.5-45.5 L MONOCYTE % (test code = MO%) 4.1 % 5.5-11.7 L EOSINOPHIL % (test code = EO%) 2.5 % 0.9-2.9 N BASOPHIL % (test code = BA%) 1.1 % 0.2-1.0 H NUCLEATED RBC % (test code = 0.0 % 0-1.0 N NRBC%) NEUTROPHIL # (test code = NT#) 8.33 x10 3/uL 2.2-4.8 H IMMATURE GRANULOCYTE # (test 0.06 x10 3/uL 0-0.03 H code = IG#) LYMPHOCYTE # (test code = LY#) 0.67 x10 3/uL 1.3-2.9 L MONOCYTE # (test code = MO#) 0.40 x10 3/uL 0.3-0.8 N EOSINOPHIL # (test code = EO#) 0.25 x10 3/uL 0.0-0.2 H BASOPHIL # (test code = BA#) 0.11 x10 3/uL 0.0-0.1 H CBC W/AUTO [id number] 18:32:00 Test Item Value Reference Range Interpretation Comments WHITE BLOOD CELL (test code = 9.1 x10 3/uL 5.0-12.0 N WBC) RED BLOOD CELL (test code = 2.88 x10 6/uL 4.70-6.10 L RBC) HEMOGLOBIN (test code = HGB) 8.1 g/dL 14.0-18.0 L HEMATOCRIT (test code = HCT) 25.8 % 37.0-49.0 L MEAN CELL VOLUME (test code = 90 fL 80-94 N MCV) MEAN CELL HGB (test code = MCH) 28.1 pg 27-31 N MEAN CELL HGB CONCENTRATION 31.4 g/dL 33-37 L (test code = MCHC) RED CELL DISTRIBUTION WIDTH 15.4 % 11.5-15.5 N (test code = RDW) PLATELET COUNT (test code = 223 x10 3/uL 130-400 N PLT) MEAN PLATELET VOLUME (test code 11.1 fL 9.4-16.4 N = MPV) NEUTROPHIL % (test code = NT%) 84.1 % 43-65 H IMMATURE GRANULOCYTE % (test 1.3 % 0.0-2.0 N code = IG%) LYMPHOCYTE % (test code = LY%) 7.3 % 20.5-45.5 L MONOCYTE % (test code = MO%) 4.3 % 5.5-11.7 L EOSINOPHIL % (test code = EO%) 2.2 % 0.9-2.9 N BASOPHIL % (test code = BA%) 0.8 % 0.2-1.0 N NUCLEATED RBC % (test code = 0.0 % 0-1.0 N NRBC%) NEUTROPHIL # (test code = NT#) 7.61 x10 3/uL 2.2-4.8 H IMMATURE GRANULOCYTE # (test 0.12 x10 3/uL 0-0.03 H code = IG#) LYMPHOCYTE # (test code = LY#) 0.66 x10 3/uL 1.3-2.9 L MONOCYTE # (test code = MO#) 0.39 x10 3/uL 0.3-0.8 N EOSINOPHIL # (test code = EO#) 0.20 x10 3/uL 0.0-0.2 N BASOPHIL # (test code = BA#) 0.07 x10 3/uL 0.0-0.1 N [id number] 17:43:00 Test Item Value Reference Range Interpretation Comments GLUBED (test code = GLUBED) 89 MG/DL 74-106 N [id number] 15:34:00 Test Item Value Reference Range Interpretation Comments GLUBED (test code = GLUBED) 95 MG/DL 74-106 N [id number] 10:40:00 Test Item Value Reference Range Interpretation Comments GLUBED (test code = GLUBED) 95 MG/DL 74-106 N BASIC METABOLIC [id number] 03:51:00 Test Item Value Reference Range Interpretation Comments SODIUM (test code = 144 mmol/L 137-145 N NA) POTASSIUM (test code 3.9 mmol/L 3.4-5.0 N = K) CHLORIDE (test code = 111 mmol/L 98-107 H CL) CARBON DIOXIDE (test 19 mmol/L 22-30 L code = CO2) GLUCOSE (test code = 98 mg/dL 74-106 N GLU) BLOOD UREA NITROGEN 82 mg/dL 9-20 H (test code = BUN) GLOMERULAR FILTRATION 15 >60 L The es timated RATE (test code = glomerular filtration GFR) rate is compute d usingpatient ra ce, age (>18), sex, and serum creatinine. If anyof the needed data elements are mi ssing the Laboratory cannot compute an kevin mation of the glomerul ar filtration rate . CREATININE (test code 5.8 mg/dL 0.7-1.3 H = CREAT) CALCIUM (test code = 7.9 mg/dL 8.4-10.2 L CA) CBC W/AUTO [id number] 03:35:00 Test Item Value Reference Range Interpretation Comments WHITE BLOOD CELL (test code = 8.3 x10 3/uL 5.0-12.0 N WBC) RED BLOOD CELL (test code = 2.88 x10 6/uL 4.70-6.10 L RBC) HEMOGLOBIN (test code = HGB) 8.0 g/dL 14.0-18.0 L HEMATOCRIT (test code = HCT) 25.4 % 37.0-49.0 L MEAN CELL VOLUME (test code = 88 fL 80-94 N MCV) MEAN CELL HGB (test code = MCH) 27.8 pg 27-31 N MEAN CELL HGB CONCENTRATION 31.5 g/dL 33-37 L (test code = MCHC) RED CELL DISTRIBUTION WIDTH 15.3 % 11.5-15.5 N (test code = RDW) PLATELET COUNT (test code = 211 x10 3/uL 130-400 N PLT) MEAN PLATELET VOLUME (test code 11.1 fL 9.4-16.4 N = MPV) NEUTROPHIL % (test code = NT%) 84.0 % 43-65 H IMMATURE GRANULOCYTE % (test 0.7 % 0.0-2.0 N code = IG%) LYMPHOCYTE % (test code = LY%) 7.6 % 20.5-45.5 L MONOCYTE % (test code = MO%) 5.2 % 5.5-11.7 L EOSINOPHIL % (test code = EO%) 1.7 % 0.9-2.9 N BASOPHIL % (test code = BA%) 0.8 % 0.2-1.0 N NUCLEATED RBC % (test code = 0.0 % 0-1.0 N NRBC%) NEUTROPHIL # (test code = NT#) 6.93 x10 3/uL 2.2-4.8 H IMMATURE GRANULOCYTE # (test 0.06 x10 3/uL 0-0.03 H code = IG#) LYMPHOCYTE # (test code = LY#) 0.63 x10 3/uL 1.3-2.9 L MONOCYTE # (test code = MO#) 0.43 x10 3/uL 0.3-0.8 N EOSINOPHIL # (test code = EO#) 0.14 x10 3/uL 0.0-0.2 N BASOPHIL # (test code = BA#) 0.07 x10 3/uL 0.0-0.1 N - XR CHEST 1 [id number] 20:27:00 [facility] : 1985 Sex: M FAX: Edy Adame MD [phone] Constable: St: ADM Name: JORGE GOINS [facility] : 1985 Age/S: 34/M [address] Unit #: [id number] Loc: C.ICC2 [place] [address] Phys: Edy Olmedo MD Acct: [id number] Dis Date: Status: ADM IN PHONE #: [phone] Exam Date: 07/20/20201902 FAX #: [phone] Reason: RIGHT IJ MENA PLACEMENT EXAMS: CPT CODE: [id number] XR CHEST 1 V 70034 Location code: H5 Chest 1 view Indication: RIGHT IJ MENA PLACEMENT. Comparison: 07/16/2019 Findings: Stable cardiomegaly. Aortic stent in place. Right jugular central venous catheter unchanged in position and lies in the righ t brachiocephalic vein. Costophrenic angles are clear. Lungs are clear. Bone is unremarkable for age. Impression: 1. No radiographic evidence of acute cardiopulmonary disease. at 2026 Reported and signed by: Chau Dewitt MD CC: Edy hsu MD Technologist: GISEL SOLORZANO Trnmtrd Date/Time/By: 07/20/2020 (2026) : By: [email or web address] PAGE 1 Signed Report FAX: Edy Adame MD [phone] Constable: St: ADM Name: JORGE GOINS [facility] : 1985 Age/S: 34/M [address] Unit #: [id number] Loc: C.[facility] [place] [address] Phys: Edy Olmedo MD Acct: [id number] Dis Date: Status: ADM IN PHONE #: [phone] Exam Date: 07/20/20201902 FAX #: [phone] Reason: RIGHT IJ MENA PLACEMENT EXAMS: CPT CODE: [id number] XR CHEST 1 V 06848 (Continued) Orig Print D/T: S: 07/20/2020 (2029) PAGE 2 Signed [id number] 18:09:00 Test Item Value Reference Range Interpretation Comments GLUBED (test code = GLUBED) 112 MG/DL 74-106 H [id number] 12:31:00 Test Item Value Reference Range Interpretation Comments GLUBED (test code = GLUBED) 69 MG/DL 74-106 L BASIC METABOLIC [id number] 04:56:00 Test Item Value Reference Range Interpretation Comments SODIUM (test code = 142 mmol/L 137-145 N NA) POTASSIUM (test code 3.5 mmol/L 3.4-5.0 N = K) CHLORIDE (test code = 110 mmol/L 98-107 H CL) CARBON DIOXIDE (test 21 mmol/L 22-30 L code = CO2) GLUCOSE (test code = 90 mg/dL 74-106 N GLU) BLOOD UREA NITROGEN 77 mg/dL 9-20 H (test code = BUN) GLOMERULAR FILTRATION 15 >60 L The es timated RATE (test code = glomerular filtration GFR) rate is compute d usingpatient ra ce, age (>18), sex, and serum creatinine. If anyof the needed data elements are mi ssing the Laboratory cannot compute an kevin mation of the glomerul ar filtration rate . CREATININE (test code 5.6 mg/dL 0.7-1.3 H = CREAT) CALCIUM (test code = 7.9 mg/dL 8.4-10.2 L CA) [id number] 04:56:00 Test Item Value Reference Range Interpretation Comments MAGNESIUM (test code = MAG) 2.4 mg/dL 1.6-2.3 H CBC W/AUTO [id number] 04:26:00 Test Item Value Reference Range Interpretation Comments WHITE BLOOD CELL (test code = 7.2 x10 3/uL 5.0-12.0 N WBC) RED BLOOD CELL (test code = 2.93 x10 6/uL 4.70-6.10 L RBC) HEMOGLOBIN (test code = HGB) 8.2 g/dL 14.0-18.0 L HEMATOCRIT (test code = HCT) 26.0 % 37.0-49.0 L MEAN CELL VOLUME (test code = 89 fL 80-94 N MCV) MEAN CELL HGB (test code = MCH) 28.0 pg 27-31 N MEAN CELL HGB CONCENTRATION 31.5 g/dL 33-37 L (test code = MCHC) RED CELL DISTRIBUTION WIDTH 15.7 % 11.5-15.5 H (test code = RDW) PLATELET COUNT (test code = 240 x10 3/uL 130-400 N PLT) MEAN PLATELET VOLUME (test code 11.2 fL 9.4-16.4 N = MPV) NEUTROPHIL % (test code = NT%) 81.8 % 43-65 H IMMATURE GRANULOCYTE % (test 0.8 % 0.0-2.0 N code = IG%) LYMPHOCYTE % (test code = LY%) 9.0 % 20.5-45.5 L MONOCYTE % (test code = MO%) 5.4 % 5.5-11.7 L EOSINOPHIL % (test code = EO%) 2.2 % 0.9-2.9 N BASOPHIL % (test code = BA%) 0.8 % 0.2-1.0 N NUCLEATED RBC % (test code = 0.0 % 0-1.0 N NRBC%) NEUTROPHIL # (test code = NT#) 5.89 x10 3/uL 2.2-4.8 H IMMATURE GRANULOCYTE # (test 0.06 x10 3/uL 0-0.03 H code = IG#) LYMPHOCYTE # (test code = LY#) 0.65 x10 3/uL 1.3-2.9 L MONOCYTE # (test code = MO#) 0.39 x10 3/uL 0.3-0.8 N EOSINOPHIL # (test code = EO#) 0.16 x10 3/uL 0.0-0.2 N BASOPHIL # (test code = BA#) 0.06 x10 3/uL 0.0-0.1 N - CT T-SPINE W/O [id number] 14:53:00 [facility] Brii : 1985 Sex: M FAX: William Jorge DO [phone] Constable: St: [facility] FAX: Edy Adame MD [phone] Name: JORGE GOINS [facility] : 1985 Age/S: 34/M [address] Unit: [id number] Loc: .[facility] [place] [address] Phys: William Chino DO Acct: [id number] Dis Date: Status: ADM IN PHONE #: [phone] Exam Date: 07/19/2020 1500FAX #: [phone] Reason: Unable to move bilateral lower extremities EXAMS: CPT CODE: [id number] CTT-SPINE W/O CONTRAST 42355 Location: B2 EXAM: - CT L-SPINE W/O CONTRAST, - CT T-SPINE W/O CONTRAST INDICATION: Unable to move bilateral lower extremities COMPARISON: None TECHNIQUE: Volumetric CT acquisition of the thoracic and lumbar spine without contrast. Axial, sagittal and coronal reconstructions. This exam was performed according to our departmental dose-optimization program, which includes automated exposure control, adjustment of the mA and/or kV according to patient size and/or use of iterative reconstruction technique. IV contrast: None. DLP: 1035.08 mGy-cm FINDINGS: This examination does not provide the level of detail that is typically obtained with a CT myelogram or MRI. There is slight straightening of the normal thoracic kyphosis and normal lumbar lordosis, which may be secondary to positioning. No vertebral body height loss is identified. No acute fracture or malalignment. Thereis minimal multilevel marginal osteophyte formation within the thoracic and lumbar spine. No bony canal stenosis. There is mild multilevel bilateral facet arthrosis within the lower lumbar spine. Mild linear opacities and ground glass opacities are noted within the right lower lobe, which may represent atelectatic change. There is a large stent graft within the thoracic and abdominal aorta. Additional vascular stents are noted within the right iliac vessels. There is a small amount of free fluid within the pelvis. There is mild edema within the dorsal subcutaneous fat, which is nonspecific. IMPRESSION: No acute bony abnormality of the thoracic or lumbar spine. Of note, there is a large stent graft in place within the thoracic and PAGE 1 Signed Report (CONTINUED) FAX: William Jorge DO [phone] Constable: St: ADM FAX: Edy Adame MD [phone] Name: JORGE GOINS [facility] : 1985 Age/S: 34/M [address] Unit: [id number] Loc: [address] [address] Phys: William Chino DO Acct: [id number] Dis Date: Status: ADM IN PHONE #: [phone] Exam Date: 07/19/2020 1500 FAX #: [phone] Reason: Unable to move bilateral lower extremities EXAMS: CPT CODE: [id number] CT T-SPINE W/O CONTRAST 64362 (Continued) abdominal aorta. Given patient's history, an MRI examination may be helpful to evaluate forthe possibility of a cord infarct. Minimal degenerative changes. Small amount of free fluid within the pelvis, nonspecific. at 4645 Reported and signed by: Paras Faustin MD CC: William Guerrier; Edy Olmedo MD Technologist: JAVIER Yeager Dt/Tm: 07/19/2020 (2972) [email or web address] Orig Print D/T: S: 07/19/2020 (1854 PAGE 2 Signed Report- CT L-SPINE W/O [id number] 14:53:00 [facility] : 1985 Sex: M FAX: William Jorge DO [phone] Constable: St: ADM FAX: Edy Adame MD [phone] Name: JORGE GOINS [facility] : 1985 Age/S: 34/M [address] Unit: [id number] Loc: C.[address] [address] Phys: William Chino DO Acct: [id number] Dis Date: Status: ADM IN PHONE #: [phone] Exam Date: 07/19/2020 1500FAX #: [phone] Reason: Unable to move bilateral lower extremities EXAMS: CPT CODE: [id number] CTL-SPINE W/O CONTRAST 47142 Location: B2 EXAM: - CT L-SPINE W/O CONTRAST, - CT T-SPINE W/O CONTRAST INDICATION: Unable to move bilateral lower extremities COMPARISON: None TECHNIQUE: Volumetric CT acquisition of the thoracic and lumbar spine without contrast. Axial, sagittal and coronal reconstructions. This exam was performed according to our departmental dose-optimization program, which includes automated exposure control, adjustment of the mA and/or kV according to patient size and/or use of iterative reconstruction technique. IV contrast: None. DLP: 1035.08 mGy-cm FINDINGS: This examination does not provide the level of detail that is typically obtained with a CT myelogram or MRI. There is slight straightening of the normal thoracic kyphosis and normal lumbar lordosis, which may be secondary to positioning. No vertebral body height loss is identified. No acute fracture or malalignment. There is minimal multilevel marginal osteophyte formation within the thoracic and lumbar spine. No bony canal stenosis. There is mild multilevel bilateral facet arthrosis within the lower lumbar spine. Mildlinear opacities and ground glass opacities are noted within the right lower lobe, which may represent atelectatic change. There is a large stent graft within the thoracic and abdominal aorta. Additional vascular stents are noted within the right iliac vessels. There is a small amount of free fluid within the pelvis. There is mild edema within the dorsal subcutaneous fat, which is nonspecific. IMPRESSION: No acute bony abnormality of the thoracic or lumbar spine. Of note, there is a large stent graft in place within the thoracic and PAGE 1 Signed Report (CONTINUED) FAX: William Jorge DO [phone] Constable: St: ADM FAX: Edy Adame MD [phone] Name: JORGE GOINS [facility] : 1985 Age/S: 34/M [address] Unit: [id number] Loc: [address] [address] Phys: William Chino DO Acct: [id number] Dis Date: Status: ADM IN PHONE #: [phone] Exam Date: 07/19/2020 1500 FAX #: [phone] Reason: Unable to move bilateral lower extremities EXAMS: CPT CODE: [id number] CT L-SPINE W/O CONTRAST 07329 (Continued) abdominal aorta. Given patient's history, an MRI examination may be helpful to evaluate for the possibility of a cord infarct. Minimal degenerative changes. Small amount of free fluid withinthe pelvis, nonspecific. at 1453 Reported and signed by: Paras Faustin MD CC: William Guerrier; Edy Olmedo MD Technologist: JAVIER Yeager Dt/Tm: 07/19/2020 (2633) [email or web address] Orig Print D/T: S: 07/19/2020 (6185 PAGE 2 Signed Report- CT C-SPINE W/O [id number] 14:44:00 [facility] : 1985 Sex: M FAX: William Jorge DO [phone] Constable: St: [facility] FAX: Edy Adame MD [phone] Name: TREMAYNE GOINSEME Brii [facility] : 1985 Age/S: 34/M [address] Unit: [id number] Loc: [address] [address] Phys: William Chino DO Acct: [id number] Dis Date: Status: ADM IN PHONE #: [phone] Exam Date: 07/19/2020 1500FAX #: [phone] Reason: Unable to move bilateral lower extremities EXAMS: CPT CODE: [id number] CTC-SPINE W/O CONT 57741 Location: B2 EXAM: CT CERVICAL SPINE WITHOUT CONTRAST INDICATION: Unable to move bilateral lower extremities COMPARISON: None TECHNIQUE: Volumetric acquisition of the cervical spine without contrast. Axial, sagittal and coronal reconstructions. This exam was performed according to our departmental dose-optimization program, which includes automated exposure control, adjustment of the mA and/or kV according to patient size and/or use of iterative reconstruction technique. IV contrast: None. DLP: 222.09 mGy-cm FINDINGS: This examination does not provide the level of detail thatis typically obtained with a CT myelogram or MRI. There is straightening of the normal curvature of the cervical spine, which may be secondary to positioning. No vertebral body height loss is identified. No acute fracture or malalignment. No significant degenerative changes. No bony canal stenosis. There is a tracheostomy tube in place, incompletely imaged. There is a right-sided central venous catheter place, with tip not included within the [id number]. The imaged portions of the lung apices are clear. The thyroid gland is mildly heterogeneous, a nonspecific finding. Incidental note made of a deep dental caries and periapical lucency of the right mandibular 1st molar. IMPRESSION: Straightening of the normal curvature, which may be secondary to positioning. PAGE 1 Signed Report (CONTINUED) FAX: William Jorge DO [phone] Constable: St: [facility] FAX: Edy Adame MD [phone] Name[facility] 1985 Age/S: 34[facility]M [address] Unit: [id number] Loc: [address] [address] Phys: William Chino DO Acct: [id number] Dis Date: Status: ADM IN PHONE #: [phone] Exam Date: 07/19/2020 1500 FAX #: [phone] Reason: Unable to move bilateral lower extremities EXAMS: CPT CODE: [id number] CT C-SPINE W/O CONT 12619 (Continued) No acute bony abnormality of the cervical spine. If there is continued clinical concern for neurologic compromise, consider further evaluation with an MRI examination. at 1444 Reported and signedby: Paras Faustin MD CC: William Guerrier; Edy Olmedo MD Technologist: DAVID Yeager Dt/Tm:07/19/2020 (4739) [email or web address] Orig Print D/T: S: 07/19/2020 (0594 PAGE 2 Signed Report- MRI BRAIN W/O CONTRAST 2020-07-19 13:22:00 [facility] : 1985 Sex: M FAX: William Jorge DO [phone] Constable: St: ADM FAX: Edy Adame MD [phone] Name: JORGE GOINS [facility] : 1985 Age/S: 34/M [address] Unit #: [id number] [facility] [place] [address] Phys: William Chino DO Acct: [id number] Dis Date: Status: ADM IN PHONE #: [phone] Exam Date: 07/19/2020 1240 FAX #: [phone] Reason: cva EXAMS: CPT CODE: [id number] MRI BRAIN W/O CONTRAST 32691 Dictationlocation: H37. MRI BRAIN WITHOUT CONTRAST HISTORY: cva TECHNIQUE: Multiplanar and multiple pulse sequences were obtained throughout the brain without contrast. COMPARISON: CT head 06/29/20 and MRI brain 06/26/20 FINDINGS: Diffusion weighted imaging shows no evidence of acute ischemia. The white matter changes especially along the periventricular white matter in the frontal lobes show some improvement. No new changes. No acute hemorrhage, mass, mass effect, hydrocephalus, midline shift or extra-axial fluid collection. Small focus of blooming artifact related to chronic hemosiderin noted along the left occipital lobe is unchanged. Small amount of chronic hemosiderin seen towards the left frontal lobein the area of previous restricted diffusion. The paranasal sinuses and mastoid air cells are clear.IMPRESSION: No evidence of acute ischemia. Previously seen areas restricted diffusion on the longer present with a corresponding abnormal T2/FLAIR signal signal showing significant improvement. Patchy periventricular white matter disease appears improved but not resolved since 06/26/20 and may have related to underlying metabolic or toxic disorder and/or vasculitis. at 1322 Reported and signed by: Shauna Sosa MD CC: William Guerrier; Edy Olmedo MD Technologist: THOMAS GRUBER Trnscrd Date/Time/By: 07/19/2020 (1322) : By: [email or web address] PAGE 1 Signed Report FAX: William Jorge DO [phone] Constable: St: [facility] FAX: Edy Adame MD [phone] Name: JORGE GOINS : 1985 Age/S: 34/M [address] Unit #: [id number] Loc:[facility] [place] [address] Phys: William Chino DO Acct: [id number] Dis Date: Status: ADM IN PHONE #: [phone] Exam Date: 07/19/2020 1240 FAX #: [phone] Reason: cva EXAMS: CPT CODE: [id number] MRI B RAIN W/O CONTRAST 09756 (Continued) Orig Print D/T: S: 07/19/2020 (1325) PAGE 2 Signed [id number] 12:00:00 Test Item Value Reference Range Interpretation Comments GLUBED (test code = GLUBED) 91 MG/DL 74-106 N BASIC METABOLIC [id number] 03:07:00 Test Item Value Reference Range Interpretation Comments SODIUM (test code = 140 mmol/L 137-145 N NA) POTASSIUM (test code 3.2 mmol/L 3.4-5.0 L = K) CHLORIDE (test code = 108 mmol/L 98-107 H CL) CARBON DIOXIDE (test 21 mmol/L 22-30 L code = CO2) GLUCOSE (test code = 103 mg/dL 74-106 N GLU) BLOOD UREA NITROGEN 65 mg/dL 9-20 H (test code = BUN) GLOMERULAR FILTRATION 18 >60 L The es timated RATE (test code = glomerular filtration GFR) rate is compute d usingpatient ra ce, age (>18), sex, and serum creatinine. If anyof the needed data elements are mi ssing the Laboratory cannot compute an kevin mation of the glomerul ar filtration rate . CREATININE (test code 4.9 mg/dL 0.7-1.3 H = CREAT) CALCIUM (test code = 8.0 mg/dL 8.4-10.2 L CA) [id number] 03:07:00 Test Item Value Reference Range Interpretation Comments MAGNESIUM (test code = MAG) 1.9 mg/dL 1.6-2.3 N CBC W/AUTO [id number] 02:48:00 Test Item Value Reference Range Interpretation Comments WHITE BLOOD CELL (test code = 10.0 x10 3/uL 5.0-12.0 N WBC) RED BLOOD CELL (test code = 3.18 x10 6/uL 4.70-6.10 L RBC) HEMOGLOBIN (test code = HGB) 8.8 g/dL 14.0-18.0 L HEMATOCRIT (test code = HCT) 28.1 % 37.0-49.0 L MEAN CELL VOLUME (test code = 88 fL 80-94 N MCV) MEAN CELL HGB (test code = MCH) 27.7 pg 27-31 N MEAN CELL HGB CONCENTRATION 31.3 g/dL 33-37 L (test code = MCHC) RED CELL DISTRIBUTION WIDTH 15.3 % 11.5-15.5 N (test code = RDW) PLATELET COUNT (test code = 261 x10 3/uL 130-400 N PLT) MEAN PLATELET VOLUME (test code 10.9 fL 9.4-16.4 N = MPV) NEUTROPHIL % (test code = NT%) 87.7 % 43-65 H IMMATURE GRANULOCYTE % (test 0.7 % 0.0-2.0 N code = IG%) LYMPHOCYTE % (test code = LY%) 5.9 % 20.5-45.5 L MONOCYTE % (test code = MO%) 4.0 % 5.5-11.7 L EOSINOPHIL % (test code = EO%) 1.1 % 0.9-2.9 N BASOPHIL % (test code = BA%) 0.6 % 0.2-1.0 N NUCLEATED RBC % (test code = 0.0 % 0-1.0 N NRBC%) NEUTROPHIL # (test code = NT#) 8.78 x10 3/uL 2.2-4.8 H IMMATURE GRANULOCYTE # (test 0.07 x10 3/uL 0-0.03 H code = IG#) LYMPHOCYTE # (test code = LY#) 0.59 x10 3/uL 1.3-2.9 L MONOCYTE # (test code = MO#) 0.40 x10 3/uL 0.3-0.8 N EOSINOPHIL # (test code = EO#) 0.11 x10 3/uL 0.0-0.2 N BASOPHIL # (test code = BA#) 0.06 x10 3/uL 0.0-0.1 N [id number] 02:44:00 Test Item Value Reference Range Interpretation Comments GLUBED (test code = GLUBED) 92 MG/DL 74-106 N [id number] 02:44:00 Test Item Value Reference Range Interpretation Comments GLUBED (test code = GLUBED) 118 MG/DL 74-106 H [id number] 21:08:00 Test Item Value Reference Range Interpretation Comments GLUBED (test code = GLUBED) 111 MG/DL 74-106 H [id number] 14:32:00 Test Item Value Reference Range Interpretation Comments GLUBED (test code = GLUBED) 127 MG/DL 74-106 H [id number] 11:58:00 Test Item Value Reference Range Interpretation Comments GLUBED (test code = GLUBED) 108 MG/DL 74-106 H [id number] 06:59:00 Test Item Value Reference Range Interpretation Comments GLUBED (test code = GLUBED) 117 MG/DL 74-106 H BASIC METABOLIC [id number] 03:38:00 Test Item Value Reference Range Interpretation Comments SODIUM (test code = 140 mmol/L 137-145 N NA) POTASSIUM (test code 3.7 mmol/L 3.4-5.0 N = K) CHLORIDE (test code = 107 mmol/L 98-107 N CL) CARBON DIOXIDE (test 22 mmol/L 22-30 N code = CO2) GLUCOSE (test code = 125 mg/dL 74-106 H GLU) BLOOD UREA NITROGEN 50 mg/dL 9-20 H (test code = BUN) GLOMERULAR FILTRATION 22 >60 L The es timated RATE (test code = glomerular filtration GFR) rate is compute d usingpatient ra ce, age (>18), sex, and serum creatinine. If anyof the needed data elements are mi ssing the Laboratory cannot compute an kevin mation of the glomerul ar filtration rate . CREATININE (test code 4.0 mg/dL 0.7-1.3 H = CREAT) CALCIUM (test code = 8.1 mg/dL 8.4-10.2 L CA) [id number] 03:38:00 Test Item Value Reference Range Interpretation Comments MAGNESIUM (test code = MAG) 1.9 mg/dL 1.6-2.3 N CBC W/AUTO [id number] 03:10:00 Test Item Value Reference Range Interpretation Comments WHITE BLOOD CELL (test code = 10.8 x10 3/uL 5.0-12.0 N WBC) RED BLOOD CELL (test code = 3.44 x10 6/uL 4.70-6.10 L RBC) HEMOGLOBIN (test code = HGB) 9.4 g/dL 14.0-18.0 L HEMATOCRIT (test code = HCT) 31.4 % 37.0-49.0 L MEAN CELL VOLUME (test code = 91 fL 80-94 N MCV) MEAN CELL HGB (test code = 27.3 pg 27-31 N MCH) MEAN CELL HGB CONCENTRATION 29.9 g/dL 33-37 L (test code = MCHC) RED CELL DISTRIBUTION WIDTH 15.7 % 11.5-15.5 H (test code = RDW) PLATELET COUNT (test code = 276 x10 3/uL 130-400 N PLT) MEAN PLATELET VOLUME (test 11.0 fL 9.4-16.4 N code = MPV) NEUTROPHIL % (test code = NT%) 94.0 % 43-65 H IMMATURE GRANULOCYTE % (test 0.6 % 0.0-2.0 N code = IG%) LYMPHOCYTE % (test code = LY%) 3.7 % 20.5-45.5 L MONOCYTE % (test code = MO%) 1.1 % 5.5-11.7 L EOSINOPHIL % (test code = EO%) 0.2 % 0.9-2.9 L BASOPHIL % (test code = BA%) 0.4 % 0.2-1.0 N NUCLEATED RBC % (test code = 0.0 % 0-1.0 N NRBC%) NEUTROPHIL # (test code = NT#) 10.14 x10 3/uL 2.2-4.8 H IMMATURE GRANULOCYTE # (test 0.06 x10 3/uL 0-0.03 H code = IG#) LYMPHOCYTE # (test code = LY#) 0.40 x10 3/uL 1.3-2.9 L MONOCYTE # (test code = MO#) 0.12 x10 3/uL 0.3-0.8 L EOSINOPHIL # (test code = EO#) 0.02 x10 3/uL 0.0-0.2 N BASOPHIL # (test code = BA#) 0.04 x10 3/uL 0.0-0.1 N [id number] 12:58:00 Test Item Value Reference Range Interpretation Comments GLUBED (test code = GLUBED) 97 MG/DL 74-106 N BASIC METABOLIC [id number] 02:56:00 Test Item Value Reference Range Interpretation Comments SODIUM (test code = 146 mmol/L 137-145 H NA) POTASSIUM (test code 3.1 mmol/L 3.4-5.0 L = K) CHLORIDE (test code = 110 mmol/L 98-107 H CL) CARBON DIOXIDE (test 22 mmol/L 22-30 N code = CO2) GLUCOSE (test code = 136 mg/dL 74-106 H GLU) BLOOD UREA NITROGEN 51 mg/dL 9-20 H (test code = BUN) GLOMERULAR FILTRATION 18 >60 L The es timated RATE (test code = glomerular filtration GFR) rate is compute d usingpatient ra ce, age (>18), sex, and serum creatinine. If anyof the needed data elements are mi ssing the Laboratory cannot compute an kevin mation of the glomerul ar filtration rate . CREATININE (test code 4.8 mg/dL 0.7-1.3 H = CREAT) CALCIUM (test code = 8.2 mg/dL 8.4-10.2 L CA) CBC W/AUTO [id number] 02:34:00 Test Item Value Reference Range Interpretation Comments WHITE BLOOD CELL (test code = 8.6 x10 3/uL 5.0-12.0 N WBC) RED BLOOD CELL (test code = 3.35 x10 6/uL 4.70-6.10 L RBC) HEMOGLOBIN (test code = HGB) 9.4 g/dL 14.0-18.0 L HEMATOCRIT (test code = HCT) 30.9 % 37.0-49.0 L MEAN CELL VOLUME (test code = 92 fL 80-94 N MCV) MEAN CELL HGB (test code = MCH) 28.1 pg 27-31 N MEAN CELL HGB CONCENTRATION 30.4 g/dL 33-37 L (test code = MCHC) RED CELL DISTRIBUTION WIDTH 15.9 % 11.5-15.5 H (test code = RDW) PLATELET COUNT (test code = 278 x10 3/uL 130-400 N PLT) MEAN PLATELET VOLUME (test code 11.0 fL 9.4-16.4 N = MPV) NEUTROPHIL % (test code = NT%) 90.8 % 43-65 H IMMATURE GRANULOCYTE % (test 0.7 % 0.0-2.0 N code = IG%) LYMPHOCYTE % (test code = LY%) 6.1 % 20.5-45.5 L MONOCYTE % (test code = MO%) 1.6 % 5.5-11.7 L EOSINOPHIL % (test code = EO%) 0.2 % 0.9-2.9 L BASOPHIL % (test code = BA%) 0.6 % 0.2-1.0 N NUCLEATED RBC % (test code = 0.0 % 0-1.0 N NRBC%) NEUTROPHIL # (test code = NT#) 7.83 x10 3/uL 2.2-4.8 H IMMATURE GRANULOCYTE # (test 0.06 x10 3/uL 0-0.03 H code = IG#) LYMPHOCYTE # (test code = LY#) 0.53 x10 3/uL 1.3-2.9 L MONOCYTE # (test code = MO#) 0.14 x10 3/uL 0.3-0.8 L EOSINOPHIL # (test code = EO#) 0.02 x10 3/uL 0.0-0.2 N BASOPHIL # (test code = BA#) 0.05 x10 3/uL 0.0-0.1 N - XR ABDOMEN 1 [id number] 22:33:00 [facility] : 1985 Sex: M FAX: Vic Higuera MD [phone] Constable: [facility]: [facility] FAX: Edy Adame MD [phone] Name: JORGE GOINS [facility] : 1985 Age/S: 34/M [address] Unit #: [id number] Loc: [address] [address] Phys: Vic Amaya MD Acct: [id number] Dis Date: Status: ADM IN PHONE #: [phone] Exam Date: 07/16/192153 FAX #: [phone] Reason: PEG TUBE PLACEMENT WITH GASTROGRAFIN EXAMS: CPT CODE: [id number] XR ABDOMEN 1 V [id number] EXAM: ABDOMEN ONE VIEW INDICATION: PEG TUBE PLACEMENT WITH GASTROGRAFIN LOCATION: B2 COMPARISON: July 04, 2020 TECHNIQUE: AP view of the abdomen. 60 mL of Gastrografin given. FINDINGS: There is contrast noted within the proximal small bowel. There are distended loops of small and large bowel throughout the abdomen. No pneumoperitoneum is identified. No abnormal calcifications. There are surgical clips in the right upper quadrant. The osseous structures are unremarkable. IMPRESSION: Contrasted within the proximal small bowel suggesting appropriate placement of PEG tube. Elec tronically Signed by Kim Morrow MD on 07/16/2020 at 2233 Reported and signed by: Kim Holamn CC: Vic Amaya; Edy Olmedo MD Technologist: PERRY STONE Trnscrd Date/Time/By: 07/16/2020 (6980) : By: [email or web address] PAGE 1 Signed Report FAX: Vic Higuera MD [phone] Constable: [facility]: [facility] FAX: Edy Adame MD [phone] Name: JORGE GOINS [facility] : 1985 Age/S: 34/M [address] Unit #: [id number] Loc: C.[facility] [place] [address] Phys: Vic Amaya MD Acct: [id number] Dis Date: Status: ADM IN PHONE #: [phone] Exam Date: 07/16/20202153 FAX #: [phone] Reason: PEG TUBE PLACEMENT WITH GASTROGRAFIN EXAMS: CPT CODE: [id number] XR ABDOMEN 1 V 48491 (Continued) Orig Print D/T: S: 0 07/16/2020 (2236) PAGE 2 Signed [id number] 08:52:00 Test Item Value Reference Range Interpretation Comments GLUBED (test code = GLUBED) 134 MG/DL 74-106 H [id number] 08:52:00 Test Item Value Reference Range Interpretation Comments GLUBED (test code = GLUBED) 107 MG/DL 74-106 H [id number] 08:52:00 Test Item Value Reference Range Interpretation Comments GLUBED (test code = GLUBED) 110 MG/DL 74-106 H - XR CHEST 1 [id number] 06:23:00 [facility] TREMAYNE GOINSROBINA Teresa : 1985 Sex: M FAX: Edy Adame MD [phone] Constable: [facility]: [facility] FAX: Jefferson Darling DO Name: JORGE GOINS [facility] : 1985 Age/S: 34/M [address] Unit #: [id number] Loc: [address] [address] Phys: PhongJefferson HANDLEY R1 Acct: [id number] Dis Date: Status: ADM IN PHONE #: [phone] Exam Date: 07/16/2020 0505 FAX #: [phone] Reason: acute respiratory failure EXAMS: CPT CODE: [id number] XR CHEST 1 [id number] EXAM: - XR CHEST 1 V LOCATION: C3 HISTORY: acute respiratory failure COMPARISON: 07/14/2020 FINDINGS: Single view of the chest. The right IJ CVC tip overlies the IJ. No pneumothorax. The lungs are clear without significant effusions. Unchanged mild cardiomegaly. Aortic stent graft noted. No acute osseous findings are present. IMPRESSION: No acute cardiopulmonary abnormality. at 0623 Reported and signed by: Denny Mohamud MD CC: Edy Olmedo MD; Jefferson Darling DO Technologist: PIETER PALACIO (R) Trnscrd Date/Time/By: 07/16/2020 (0623) : By: [email or web address] PAGE 1 Signed Report FAX: Edy Adame MD [phone] Constable: [facility]: [facility] FAX: Jefferson Darling DO Name: JORGE GOINS : 1985 Age/S: 34/M [address] Unit #: [id number] Loc: [address] [address] Phys: Jefferson Darling DO R1 Acct: [id number] Dis Date: Status: ADM IN PHONE #: [phone] Exam Date: 07/16/2020 0500 FAX #: [phone] Reason: acute respiratory failure EXAMS: CPT CODE: [id number] XR CHEST 1 V 65381 (Continued) Orig Print D/T: S: 07/16/2020 ( 0626) PAGE 2 Signed ReportCBC W/MANUAL [id number] 04:15:00 Test Item Value Reference Range Interpretation Comments WHITE BLOOD CELL (test code = 5.6 x10 3/uL 5.0-12.0 N WBC) RED BLOOD CELL (test code = 3.20 x10 6/uL 4.70-6.10 L RBC) HEMOGLOBIN (test code = HGB) 8.8 g/dL 14.0-18.0 L HEMATOCRIT (test code = HCT) 29.9 % 37.0-49.0 L MEAN CELL VOLUME (test code = 93 fL 80-94 N MCV) MEAN CELL HGB (test code = MCH) 27.5 pg 27-31 N MEAN CELL HGB CONCENTRATION 29.4 g/dL 33-37 L (test code = MCHC) RED CELL DISTRIBUTION WIDTH 16.7 % 11.5-15.5 H (test code = RDW) PLATELET COUNT (test code = 279 x10 3/uL 130-400 N PLT) MEAN PLATELET VOLUME (test code 10.6 fL 9.4-16.4 N = MPV) TOTAL CELLS COUNTED (test code 100 #CELLS = TCC) SEGMENTED NEUTROPHILS (test 95 % 43-65 H code = SEG) LYMPHOCYTE (test code = LYMPH) 2 % 20.5-45.5 L EOSINOPHIL (test code = EOS) 2 % 0.9-2.9 N BASOPHIL (test code = BASO) 2 % 0.2-1.0 H POLYCHROMASIA (test code = 1+ NONE SEEN A POLC) ANISOCYTOSIS (test code = 1+ NONE SEEN A ANISO) MICROCYTOSIS (test code = MICR) 1+ NONE SEEN A PLATELET ESTIMATE (test code = ADEQUATE ADEQUATE PLTEST) PLATELET MORPHOLOGY (test code NORMAL NORMAL = PLTMORPH) BASIC METABOLIC [id number] 04:10:00 Test Item Value Reference Range Interpretation Comments SODIUM (test code = 153 mmol/L 137-145 H NA) POTASSIUM (test code 3.4 mmol/L 3.4-5.0 N = K) CHLORIDE (test code = 118 mmol/L 98-107 H CL) CARBON DIOXIDE (test 17 mmol/L 22-30 L code = CO2) GLUCOSE (test code = 184 mg/dL 74-106 H GLU) BLOOD UREA NITROGEN 65 mg/dL 9-20 H (test code = BUN) GLOMERULAR FILTRATION 12 >60 L The es timated RATE (test code = glomerular filtration GFR) rate is compute d usingpatient ra ce, age (>18), sex, and serum creatinine. If anyof the needed data elements are mi ssing the Laboratory cannot compute an kevin mation of the glomerul ar filtration rate . CREATININE (test code 6.8 mg/dL 0.7-1.3 H = CREAT) CALCIUM (test code = 8.5 mg/dL 8.4-10.2 N CA) CBC W/MANUAL [id number] 03:46:00 Test Item Value Reference Range Interpretation Comments WHITE BLOOD CELL (test code = 5.6 x10 3/uL 5.0-12.0 N WBC) RED BLOOD CELL (test code = 3.20 x10 6/uL 4.70-6.10 L RBC) HEMOGLOBIN (test code = HGB) 8.8 g/dL 14.0-18.0 L HEMATOCRIT (test code = HCT) 29.9 % 37.0-49.0 L MEAN CELL VOLUME (test code = 93 fL 80-94 N MCV) MEAN CELL HGB (test code = MCH) 27.5 pg 27-31 N MEAN CELL HGB CONCENTRATION 29.4 g/dL 33-37 L (test code = MCHC) RED CELL DISTRIBUTION WIDTH 16.7 % 11.5-15.5 H (test code = RDW) PLATELET COUNT (test code = 279 x10 3/uL 130-400 N PLT) MEAN PLATELET VOLUME (test code 10.6 fL 9.4-16.4 N = MPV) TOTAL CELLS COUNTED (test code #CELLS = TCC) SEGMENTED NEUTROPHILS (test % 43-65 code = SEG) LYMPHOCYTE (test code = LYMPH) % 20.5-45.5 CBC W/MANUAL [id number] 03:46:00 Test Item Value Reference Range Interpretation Comments WHITE BLOOD CELL (test code = 5.6 x10 3/uL 5.0-12.0 N WBC) RED BLOOD CELL (test code = 3.20 x10 6/uL 4.70-6.10 L RBC) HEMOGLOBIN (test code = HGB) 8.8 g/dL 14.0-18.0 L HEMATOCRIT (test code = HCT) 29.9 % 37.0-49.0 L MEAN CELL VOLUME (test code = 93 fL 80-94 N MCV) MEAN CELL HGB (test code = MCH) 27.5 pg 27-31 N MEAN CELL HGB CONCENTRATION 29.4 g/dL 33-37 L (test code = MCHC) RED CELL DISTRIBUTION WIDTH 16.7 % 11.5-15.5 H (test code = RDW) PLATELET COUNT (test code = 279 x10 3/uL 130-400 N PLT) MEAN PLATELET VOLUME (test code 10.6 fL 9.4-16.4 N = MPV) TOTAL CELLS COUNTED (test code #CELLS = TCC) SEGMENTED NEUTROPHILS (test % 43-65 code = SEG) LYMPHOCYTE (test code = LYMPH) % 20.5-45.5 POC VENOUS BLOOD [id number] 03:38:00 Test Item Value Reference Range Interpretation Comments POC IONIZED CALCIUM (test 0.86 MMOL/L 1.15-1.33 L code = POCCA) POC VENOUS BLOOD GAS PH (test 7.442 7.32-7.43 H code = POCPHV) POC VENOUS BLOOD GAS PCO2 19.6 mmHg 35-45 LL (test code = [id number]) POC VENOUS BLOOD GAS PO2 56.1 mmHg 80-108 L (test code = KKGGP7C) POC HCO3 VENOUS (test code = 13.4 mmol/L 22-29 L CLERPH8Q) POC BASE EXCESS VENOUS (test -9.0 mml/L -2-3 L code = POCBEV) POC O2 SATURATION VENOUS 91.0 % 94-98 L (test code = UVYM7PT) SODIUM (test code = NA/VBG) 152 mmol/l 138-146 H POTASSIUM (test code = K/VBG) 3.4 mmol/L 3.5-4.5 L GLUCOSE (test code = GLU/VBG) 190 mg/dL 74-100 H POC SAMPLE SOURCE (test code Venous Descript Specimen = POCSAMPLE) Critical: Notify LIANA pabon (16-Jul-20 03:22:19) Read back okAB HEPATITIS B SURFACE 2020-07-16 03:08:00 Test Item Value Reference Range Interpretation Comments AB HEPATITIS B NEGATIVE SURFACE (test code = HBSAB) CLIN ICAL INTERPRETATION OF IMMUNE STATUS *NEGATIVE: Inconsistent wi th immunity to HBV infection, less than 5.0 mIU/mL POSITIVE : Consistent with immunity to HBV infectio n, greater than 10.0 mIU/mL HEP B CORE AB [id number] 03:08:00 Test Item Value Reference Range Interpretation Comments HEP B CORE AB TOTAL Negative Negative Performe d At: [facility] (test code = HBCAB) [address] [id number] Marko Schumacher MD Ph:[phone] BASIC METABOLIC [id number] 15:52:00 Test Item Value Reference Range Interpretation Comments SODIUM (test code = 150 mmol/L 137-145 H NA) POTASSIUM (test code 2.8 mmol/L 3.4-5.0 L = K) CHLORIDE (test code = 118 mmol/L 98-107 H CL) CARBON DIOXIDE (test 21 mmol/L 22-30 L code = CO2) GLUCOSE (test code = 103 mg/dL 74-106 N GLU) BLOOD UREA NITROGEN 61 mg/dL 9-20 H (test code = BUN) GLOMERULAR FILTRATION 12 >60 L The es timated RATE (test code = glomerular filtration GFR) rate is compute d usingpatient ra ce, age (>18), sex, and serum creatinine. If anyof the needed data elements are mi ssing the Laboratory cannot compute an kevin mation of the glomerul ar filtration rate . CREATININE (test code 6.8 mg/dL 0.7-1.3 H = CREAT) CALCIUM (test code = 8.4 mg/dL 8.4-10.2 N CA) AB HEPATITIS B [id number] 10:53:00 Test Item Value Reference Range Interpretation Comments AB HEPATITIS B NEGATIVE SURFACE (test code = HBSAB) CLIN ICAL INTERPRETATION OF IMMUNE STATUS *NEGATIVE: Inconsistent wi th immunity to HBV infection, less than 5.0 mIU/mL POSITIVE : Consistent with immunity to HBV infectio n, greater than 10.0 mIU/mL HEP B CORE AB [id number] 10:53:00 Test Item Value Reference Range Interpretation Comments HEP B CORE AB TOTAL (test code = HBCAB) NEGATIVE AG HEPATITIS B [id number] 10:37:00 Test Item Value Reference Range Interpretation Comments AG HEPATITIS B SURFACE (test code = NEGATIVE NEGATIVE HBSAG) CBC W/AUTO [id number] 02:36:00 Test Item Value Reference Range Interpretation Comments WHITE BLOOD CELL (test code = 6.5 x10 3/uL 5.0-12.0 N WBC) RED BLOOD CELL (test code = 3.03 x10 6/uL 4.70-6.10 L RBC) HEMOGLOBIN (test code = HGB) 8.5 g/dL 14.0-18.0 L HEMATOCRIT (test code = HCT) 29.5 % 37.0-49.0 L MEAN CELL VOLUME (test code = 97 fL 80-94 H MCV) MEAN CELL HGB (test code = MCH) 28.1 pg 27-31 N MEAN CELL HGB CONCENTRATION 28.8 g/dL 33-37 L (test code = MCHC) RED CELL DISTRIBUTION WIDTH 17.2 % 11.5-15.5 H (test code = RDW) PLATELET COUNT (test code = 292 x10 3/uL 130-400 N PLT) MEAN PLATELET VOLUME (test code 10.0 fL 9.4-16.4 N = MPV) NEUTROPHIL % (test code = NT%) 76.9 % 43-65 H IMMATURE GRANULOCYTE % (test 1.2 % 0.0-2.0 N code = IG%) LYMPHOCYTE % (test code = LY%) 8.0 % 20.5-45.5 L MONOCYTE % (test code = MO%) 5.4 % 5.5-11.7 L EOSINOPHIL % (test code = EO%) 8.2 % 0.9-2.9 H BASOPHIL % (test code = BA%) 0.3 % 0.2-1.0 N NUCLEATED RBC % (test code = 0.0 % 0-1.0 N NRBC%) NEUTROPHIL # (test code = NT#) 4.96 x10 3/uL 2.2-4.8 H IMMATURE GRANULOCYTE # (test 0.08 x10 3/uL 0-0.03 H code = IG#) LYMPHOCYTE # (test code = LY#) 0.52 x10 3/uL 1.3-2.9 L MONOCYTE # (test code = MO#) 0.35 x10 3/uL 0.3-0.8 N EOSINOPHIL # (test code = EO#) 0.53 x10 3/uL 0.0-0.2 H BASOPHIL # (test code = BA#) 0.02 x10 3/uL 0.0-0.1 N PLATELET ESTIMATE (test code = ADEQUATE ADEQUATE PLTEST) PLATELET MORPHOLOGY (test code NORMAL NORMAL = PLTMORPH) DIFFERENTIAL [id number] 02:36:00 Test Item Value Reference Range Interpretation Comments POLYCHROMASIA (test code = POLC) 2+ NONE SEEN A ANISOCYTOSIS (test code = ANISO) 1+ NONE SEEN A MICROCYTOSIS (test code = MICR) 1+ NONE SEEN A BASIC METABOLIC [id number] 02:15:00 Test Item Value Reference Range Interpretation Comments SODIUM (test code = 159 mmol/L 137-145 H NA) POTASSIUM (test code 3.5 mmol/L 3.4-5.0 N = K) CHLORIDE (test code = 128 mmol/L 98-107 H CL) CARBON DIOXIDE (test 12 mmol/L 22-30 L code = CO2) GLUCOSE (test code = 100 mg/dL 74-106 N GLU) BLOOD UREA NITROGEN 89 mg/dL 9-20 H (test code = BUN) GLOMERULAR FILTRATION 9 >60 L The es timated RATE (test code = glomerular filtration GFR) rate is compute d usingpatient ra ce, age (>18), sex, and serum creatinine. If anyof the needed data elements are mi ssing the Laboratory cannot compute an kevin mation of the glomerul ar filtration rate . CREATININE (test code 9.1 mg/dL 0.7-1.3 H = CREAT) CALCIUM (test code = 8.7 mg/dL 8.4-10.2 N CA) CBC W/AUTO [id number] 02:01:00 Test Item Value Reference Range Interpretation Comments WHITE BLOOD CELL (test code = 6.5 x10 3/uL 5.0-12.0 N WBC) RED BLOOD CELL (test code = 3.03 x10 6/uL 4.70-6.10 L RBC) HEMOGLOBIN (test code = HGB) 8.5 g/dL 14.0-18.0 L HEMATOCRIT (test code = HCT) 29.5 % 37.0-49.0 L MEAN CELL VOLUME (test code = 97 fL 80-94 H MCV) MEAN CELL HGB (test code = MCH) 28.1 pg 27-31 N MEAN CELL HGB CONCENTRATION 28.8 g/dL 33-37 L (test code = MCHC) RED CELL DISTRIBUTION WIDTH 17.2 % 11.5-15.5 H (test code = RDW) PLATELET COUNT (test code = 292 x10 3/uL 130-400 N PLT) MEAN PLATELET VOLUME (test code 10.0 fL 9.4-16.4 N = MPV) NEUTROPHIL % (test code = NT%) 76.9 % 43-65 H IMMATURE GRANULOCYTE % (test 1.2 % 0.0-2.0 N code = IG%) LYMPHOCYTE % (test code = LY%) 8.0 % 20.5-45.5 L MONOCYTE % (test code = MO%) 5.4 % 5.5-11.7 L EOSINOPHIL % (test code = EO%) 8.2 % 0.9-2.9 H BASOPHIL % (test code = BA%) 0.3 % 0.2-1.0 N NUCLEATED RBC % (test code = 0.0 % 0-1.0 N NRBC%) NEUTROPHIL # (test code = NT#) 4.96 x10 3/uL 2.2-4.8 H IMMATURE GRANULOCYTE # (test 0.08 x10 3/uL 0-0.03 H code = IG#) LYMPHOCYTE # (test code = LY#) 0.52 x10 3/uL 1.3-2.9 L MONOCYTE # (test code = MO#) 0.35 x10 3/uL 0.3-0.8 N EOSINOPHIL # (test code = EO#) 0.53 x10 3/uL 0.0-0.2 H BASOPHIL # (test code = BA#) 0.02 x10 3/uL 0.0-0.1 N CBC W/AUTO [id number] 02:01:00 Test Item Value Reference Range Interpretation Comments WHITE BLOOD CELL (test code = 6.5 x10 3/uL 5.0-12.0 N WBC) RED BLOOD CELL (test code = 3.03 x10 6/uL 4.70-6.10 L RBC) HEMOGLOBIN (test code = HGB) 8.5 g/dL 14.0-18.0 L HEMATOCRIT (test code = HCT) 29.5 % 37.0-49.0 L MEAN CELL VOLUME (test code = 97 fL 80-94 H MCV) MEAN CELL HGB (test code = MCH) 28.1 pg 27-31 N MEAN CELL HGB CONCENTRATION 28.8 g/dL 33-37 L (test code = MCHC) RED CELL DISTRIBUTION WIDTH 17.2 % 11.5-15.5 H (test code = RDW) PLATELET COUNT (test code = 292 x10 3/uL 130-400 N PLT) MEAN PLATELET VOLUME (test code 10.0 fL 9.4-16.4 N = MPV) NEUTROPHIL % (test code = NT%) 76.9 % 43-65 H IMMATURE GRANULOCYTE % (test 1.2 % 0.0-2.0 N code = IG%) LYMPHOCYTE % (test code = LY%) 8.0 % 20.5-45.5 L MONOCYTE % (test code = MO%) 5.4 % 5.5-11.7 L EOSINOPHIL % (test code = EO%) 8.2 % 0.9-2.9 H BASOPHIL % (test code = BA%) 0.3 % 0.2-1.0 N NUCLEATED RBC % (test code = 0.0 % 0-1.0 N NRBC%) NEUTROPHIL # (test code = NT#) 4.96 x10 3/uL 2.2-4.8 H IMMATURE GRANULOCYTE # (test 0.08 x10 3/uL 0-0.03 H code = IG#) LYMPHOCYTE # (test code = LY#) 0.52 x10 3/uL 1.3-2.9 L MONOCYTE # (test code = MO#) 0.35 x10 3/uL 0.3-0.8 N EOSINOPHIL # (test code = EO#) 0.53 x10 3/uL 0.0-0.2 H BASOPHIL # (test code = BA#) 0.02 x10 3/uL 0.0-0.1 N - XR CHEST 1 [id number] 00:09:00 [facility] ETHANTREMAYNE ROGERSROBINA Teresa : 1985 Sex: M FAX: Paresh Pavon [phone] Constable: St: ADM FAX: Edy Adame MD [phone] Name: JORGE GOINS [facility] : 1985 Age/S: 34/M [address] Unit #: [id number] Loc: C.ICC2 [place] [address] Phys: Paresh Pavon BRAZING MACHINE TENDER Acct: [id number] Dis Date: Status: ADM IN PHONE #: [phone] Exam Date: 07/14/2020 234 FAX #: [phone] Reason: MENA hd catheter placement EXAMS: CPT CODE: [id number] XR CHEST 1 V [id number] EXAMINATION: - XR CHEST 1 V LOCATION: H61 INDICATION/CLINICAL HISTORY: MENA hd catheter placement COMPARISON: Chest x-ray 07/13/2020 TECHNIQUE: AP view of the chest. FINDINGS: There has been interval placement of a right IJ approach dialysis catheter with tip projecting over the right brachiocephalic vein/SVC junction. Thoracic aortic stent is seen. The cardiac silhouette ismildly enlarged. There is unchanged mild pulmonary vascular congestion. There is no consolidation, pneumothorax or pleural effusion. IMPRESSION: 1. Interval placement of a right IJ approach dialysis catheter with tip projecting over the right brachiocephalic vein/SVC junction. 2. No pneumothorax. 3. Stable mild cardiomegaly and mild pulmonary vascular congestion. at 0009 Reported and signed by: Cheli Alfaro MD CC: Paresh Pavon BRAZING MACHINE TENDER; Edy Olmedo MD Technologist: RO PALACIO (R) Trnscrd Date/Time/By: 07/15/2020 (0009) : By: [email or web address] PAGE 1 Signed Report FAX: Paresh Pavon [phone] Constable: St: ADM FAX: Edy Adame MD [phone] Name: JORGE GOINS [facility] : 1985 Age/S: 34/M [address] Unit #: [id number] Loc:C.[facility] [place] [address] Phys: Paresh Pavon BRAZING MACHINE TENDER Acct: [id number] Dis Date: Status: ADM IN PHONE #: [phone] Exam Date: 07/14/20201 FAX #: [phone] Reason: MENA hd catheter placement EXAMS: CPT CODE: [id number] XR CHEST 1 V [id number] (Continued) Orig Print D/T: S: 07/15/2020 (0012) PAGE 2 Signed ReportPROTHROMBIN [id number] 21:00:00 Test Item Value Reference Range Interpretation Comments PROTHROMBIN TIME 14.1 SECONDS 9.2-12.1 H PATIENT (test code = PTP) INTERNATIONAL NORMAL 1.3 The INR is to be used RATIO (test code = only for monitoring INR) ORAL ANTICOAGULANTTH ERAPY. Indication INR Value1. Prophylaxis/jaxon atment of: Venous Thrombosis, Pul monary Embolism 2.0 - 3.02. Prevention of s ystemic embolism from: Tissue heart valves 2. 0 - 3.0 Acute myocardia l infarction (to present systemic emboli sm)* 2.0 - 3.0 Valvu lar heart disease 2 .0 - 3.0 Atrial fibrillation 2. 0 - 3.03. Mechanica l prosthetic valv es (high risk) 2.5 - 3.5 * If oral anticoagulant t herapy is elected to preventrecurren t myocardial infa rction, an INR of 2.5-3 .5 isrecommended, consistent with Food and Drug Administrationr ecommen dations. CBC W/AUTO [id number] 02:40:00 Test Item Value Reference Range Interpretation Comments WHITE BLOOD CELL (test 6.4 x10 3/uL 5.0-12.0 N code = WBC) RED BLOOD CELL (test code 2.98 x10 6/uL 4.70-6.10 L = RBC) HEMOGLOBIN (test code = 8.3 g/dL 14.0-18.0 L HGB) HEMATOCRIT (test code = 28.9 % 37.0-49.0 L HCT) MEAN CELL VOLUME (test 97 fL 80-94 H code = MCV) MEAN CELL HGB (test code 27.9 pg 27-31 N = MCH) MEAN CELL HGB 28.7 g/dL 33-37 L CONCENTRATION (test code = MCHC) RED CELL DISTRIBUTION 17.2 % 11.5-15.5 H WIDTH (test code = RDW) PLATELET COUNT (test code 324 x10 3/uL 130-400 N = PLT) MEAN PLATELET VOLUME 10.3 fL 9.4-16.4 N (test code = MPV) NEUTROPHIL % (test code = 73.2 % 43-65 H NT%) IMMATURE GRANULOCYTE % 2.4 % 0.0-2.0 H (test code = IG%) LYMPHOCYTE % (test code = 7.6 % 20.5-45.5 L LY%) MONOCYTE % (test code = 7.2 % 5.5-11.7 N MO%) EOSINOPHIL % (test code = 9.3 % 0.9-2.9 H EO%) BASOPHIL % (test code = 0.3 % 0.2-1.0 N BA%) NUCLEATED RBC % (test 0.0 % 0-1.0 N code = NRBC%) NEUTROPHIL # (test code = 4.65 x10 3/uL 2.2-4.8 N NT#) IMMATURE GRANULOCYTE # 0.15 x10 3/uL 0-0.03 H (test code = IG#) LYMPHOCYTE # (test code = 0.48 x10 3/uL 1.3-2.9 L LY#) MONOCYTE # (test code = 0.46 x10 3/uL 0.3-0.8 N MO#) EOSINOPHIL # (test code = 0.59 x10 3/uL 0.0-0.2 H EO#) BASOPHIL # (test code = 0.02 x10 3/uL 0.0-0.1 N BA#) PLATELET ESTIMATE (test ADEQUATE ADEQUATE code = PLTEST) PLATELET MORPHOLOGY (test LARGE PLATELETS SEEN NORMAL code = PLTMORPH) DIFFERENTIAL [id number] 02:40:00 Test Item Value Reference Range Interpretation Comments RBC MORPHOLOGY REQUIRED (test code = NORMAL RBCM) POLYCHROMASIA (test code = POLC) 1+ NONE SEEN A POIKILOCYTOSIS (test code = POIK) 1+ NONE SEEN A ANISOCYTOSIS (test code = ANISO) 1+ NONE SEEN A BASIC METABOLIC [id number] 02:29:00 Test Item Value Reference Range Interpretation Comments SODIUM (test code = 157 mmol/L 137-145 H NA) POTASSIUM (test code 3.6 mmol/L 3.4-5.0 N = K) CHLORIDE (test code = 126 mmol/L 98-107 H CL) CARBON DIOXIDE (test 10 mmol/L 22-30 L code = CO2) GLUCOSE (test code = 73 mg/dL 74-106 L GLU) BLOOD UREA NITROGEN 91 mg/dL 9-20 H (test code = BUN) GLOMERULAR FILTRATION 10 >60 L The es timated RATE (test code = glomerular filtration GFR) rate is compute d usingpatient ra ce, age (>18), sex, and serum creatinine. If anyof the needed data elements are mi ssing the Laboratory cannot compute an kevin mation of the glomerul ar filtration rate . CREATININE (test code 8.4 mg/dL 0.7-1.3 H = CREAT) CALCIUM (test code = 8.5 mg/dL 8.4-10.2 N CA) CBC W/AUTO [id number] 02:13:00 Test Item Value Reference Range Interpretation Comments WHITE BLOOD CELL (test code = 6.4 x10 3/uL 5.0-12.0 N WBC) RED BLOOD CELL (test code = 2.98 x10 6/uL 4.70-6.10 L RBC) HEMOGLOBIN (test code = HGB) 8.3 g/dL 14.0-18.0 L HEMATOCRIT (test code = HCT) 28.9 % 37.0-49.0 L MEAN CELL VOLUME (test code = 97 fL 80-94 H MCV) MEAN CELL HGB (test code = MCH) 27.9 pg 27-31 N MEAN CELL HGB CONCENTRATION 28.7 g/dL 33-37 L (test code = MCHC) RED CELL DISTRIBUTION WIDTH 17.2 % 11.5-15.5 H (test code = RDW) PLATELET COUNT (test code = 324 x10 3/uL 130-400 N PLT) MEAN PLATELET VOLUME (test code 10.3 fL 9.4-16.4 N = MPV) NEUTROPHIL % (test code = NT%) 73.2 % 43-65 H IMMATURE GRANULOCYTE % (test 2.4 % 0.0-2.0 H code = IG%) LYMPHOCYTE % (test code = LY%) 7.6 % 20.5-45.5 L MONOCYTE % (test code = MO%) 7.2 % 5.5-11.7 N EOSINOPHIL % (test code = EO%) 9.3 % 0.9-2.9 H BASOPHIL % (test code = BA%) 0.3 % 0.2-1.0 N NUCLEATED RBC % (test code = 0.0 % 0-1.0 N NRBC%) NEUTROPHIL # (test code = NT#) 4.65 x10 3/uL 2.2-4.8 N IMMATURE GRANULOCYTE # (test 0.15 x10 3/uL 0-0.03 H code = IG#) LYMPHOCYTE # (test code = LY#) 0.48 x10 3/uL 1.3-2.9 L MONOCYTE # (test code = MO#) 0.46 x10 3/uL 0.3-0.8 N EOSINOPHIL # (test code = EO#) 0.59 x10 3/uL 0.0-0.2 H BASOPHIL # (test code = BA#) 0.02 x10 3/uL 0.0-0.1 N CBC W/AUTO [id number] 02:13:00 Test Item Value Reference Range Interpretation Comments WHITE BLOOD CELL (test code = 6.4 x10 3/uL 5.0-12.0 N WBC) RED BLOOD CELL (test code = 2.98 x10 6/uL 4.70-6.10 L RBC) HEMOGLOBIN (test code = HGB) 8.3 g/dL 14.0-18.0 L HEMATOCRIT (test code = HCT) 28.9 % 37.0-49.0 L MEAN CELL VOLUME (test code = 97 fL 80-94 H MCV) MEAN CELL HGB (test code = MCH) 27.9 pg 27-31 N MEAN CELL HGB CONCENTRATION 28.7 g/dL 33-37 L (test code = MCHC) RED CELL DISTRIBUTION WIDTH 17.2 % 11.5-15.5 H (test code = RDW) PLATELET COUNT (test code = 324 x10 3/uL 130-400 N PLT) MEAN PLATELET VOLUME (test code 10.3 fL 9.4-16.4 N = MPV) NEUTROPHIL % (test code = NT%) 73.2 % 43-65 H IMMATURE GRANULOCYTE % (test 2.4 % 0.0-2.0 H code = IG%) LYMPHOCYTE % (test code = LY%) 7.6 % 20.5-45.5 L MONOCYTE % (test code = MO%) 7.2 % 5.5-11.7 N EOSINOPHIL % (test code = EO%) 9.3 % 0.9-2.9 H BASOPHIL % (test code = BA%) 0.3 % 0.2-1.0 N NUCLEATED RBC % (test code = 0.0 % 0-1.0 N NRBC%) NEUTROPHIL # (test code = NT#) 4.65 x10 3/uL 2.2-4.8 N IMMATURE GRANULOCYTE # (test 0.15 x10 3/uL 0-0.03 H code = IG#) LYMPHOCYTE # (test code = LY#) 0.48 x10 3/uL 1.3-2.9 L MONOCYTE # (test code = MO#) 0.46 x10 3/uL 0.3-0.8 N EOSINOPHIL # (test code = EO#) 0.59 x10 3/uL 0.0-0.2 H BASOPHIL # (test code = BA#) 0.02 x10 3/uL 0.0-0.1 N [id number] 02:06:00 Test Item Value Reference Range Interpretation Comments GLUBED (test code = GLUBED) 77 MG/DL 74-106 N [id number] 02:06:00 Test Item Value Reference Range Interpretation Comments GLUBED (test code = GLUBED) 74 MG/DL 74-106 N [id number] 20:29:00 Test Item Value Reference Range Interpretation Comments GLUBED (test code = GLUBED) 69 MG/DL 74-106 L [id number] 09:00:00 Test Item Value Reference Range Interpretation Comments GLUBED (test code = GLUBED) 82 MG/DL 74-106 N [id number] 09:00:00 Test Item Value Reference Range Interpretation Comments GLUBED (test code = GLUBED) 64 MG/DL 74-106 L - XR CHEST 1 [id number] 07:18:00 [facility] : 1985 Sex: M FAX: Papi Hood [phone] Constable: St: ADM FAX: Edy Adame MD [phone] --------- Name: JORGE GOINS [facility] : 1985 Age/S: 34/M [address] Unit #: [id number] Loc: [address] [address]Jrwb: Papi England MD Acct: [id number] Dis Date: Status: ADM IN PHONE #: [phone] Exam Date: 07/13/2020605 FAX #: [phone] Reason: chf EXAMS: CPT CODE: [id number] XR CHEST 1 V 80575 EXAM: - XR CHEST 1 V Location code:C3 HISTORY: chf COMPARISON: 07/10/2020 FINDINGS: Single AP view of the chest is provided. Enteric tube has been removed. Tracheostomy cannula is unchanged. Aortic stentgraft is similar. Cardiomegaly with vascular congestion is slightly progressed. Perihilar and basilar opacities are similar. There is no pneumothorax. IMPRESSION: 1. Enteric tube has been removed. 2. Pulmonary vascular congestion and cardiomegaly has slightly progressed. at 0718 Reported and signed by: Erick Vargas [facility]: Papi England MD; Edy Olmedo MD Technologist: Regla ArmstrongRT (R) Trnscrd Date/Time/By: 07/13/2020 (0718) : By: [email or web address] PAGE 1 Signed Report FAX: Papi Hood [phone] Constable: St: ADM FAX: Edy Adame MD [phone] Name: JORGE GOINS : 1985 Age/S: 34/M [address] Unit #: [id number] Loc: C.ICC2 [place] [address] Phys: Papi England MD Acct: [id number] Dis Date: Status: ADM IN PHONE #: [phone] Exam Date: 07/13/2020605 FAX #: [phone] Reason: chf EXAMS: CPT CODE: [id number] XR CHEST 1 V 22379 (Continued) Orig Print D/T: S: 07/13/2020 (0721) PAGE 2 Signed ReportPO ARTERIAL BLOOD [id number] 05:52:00 Test Item Value Reference Range Interpretation Comments POC ARTERIAL BLOOD GAS PH 7.36 pH units 7.35-7.45 N (test code = POCPHA) POC ARTERIAL BLOOD GAS PCO2 24.9 mmHg 35-48 LL (test code = [id number]) POC TCO2 ARTERIAL (test 14.9 mmol/L 22-29 L code = POCTCO2) POC ARTERIAL BLOOD GAS PO2 143.0 mmHg 83-108 H (test code = IZMPZ4Q) POC HCO3 ARTERIAL (test 14.1 mmol/L 21-28 L code = RMJXZV8G) POC BASE EXCESS (test code -9.4 mmol/L -2-3 L = POCBEA) POC O2 SATURATION (test 99.2 % 94-98 H code = POCO2S) ARTERIAL FIO2 (test code = 35 % FIO2A) PaO2/FiO2 (test code = 408.57 mm/Hg [id number]) ABG DELIVERY (test code = T Collar VISH) ABG SITE (test code = R Radial SITEA) ALLENS TEST (test code = N/A ALLENS) POC SAMPLE SOURCE (test Arterial Descript Specimen code = POCSAMPLE) Critical: Notify physician derirck (13-Jul-20 05:51:22) [facility] 2020-07-13 04:10:00 Test Item Value Reference Range Interpretation Comments WHITE BLOOD CELL (test code = 5.7 x10 3/uL 5.0-12.0 N WBC) RED BLOOD CELL (test code = 3.11 x10 6/uL 4.70-6.10 L RBC) HEMOGLOBIN (test code = HGB) 8.7 g/dL 14.0-18.0 L HEMATOCRIT (test code = HCT) 29.5 % 37.0-49.0 L MEAN CELL VOLUME (test code = 95 fL 80-94 H MCV) MEAN CELL HGB (test code = MCH) 28.0 pg 27-31 N MEAN CELL HGB CONCENTRATION 29.5 g/dL 33-37 L (test code = MCHC) RED CELL DISTRIBUTION WIDTH 17.0 % 11.5-15.5 H (test code = RDW) PLATELET COUNT (test code = 335 x10 3/uL 130-400 N PLT) MEAN PLATELET VOLUME (test code 10.5 fL 9.4-16.4 N = MPV) NEUTROPHIL % (test code = NT%) 67.5 % 43-65 H IMMATURE GRANULOCYTE % (test 2.3 % 0.0-2.0 H code = IG%) LYMPHOCYTE % (test code = LY%) 7.9 % 20.5-45.5 L MONOCYTE % (test code = MO%) 10.9 % 5.5-11.7 N EOSINOPHIL % (test code = EO%) 10.9 % 0.9-2.9 H BASOPHIL % (test code = BA%) 0.5 % 0.2-1.0 N NUCLEATED RBC % (test code = 0.0 % 0-1.0 N NRBC%) NEUTROPHIL # (test code = NT#) 3.83 x10 3/uL 2.2-4.8 N IMMATURE GRANULOCYTE # (test 0.13 x10 3/uL 0-0.03 H code = IG#) LYMPHOCYTE # (test code = LY#) 0.45 x10 3/uL 1.3-2.9 L MONOCYTE # (test code = MO#) 0.62 x10 3/uL 0.3-0.8 N EOSINOPHIL # (test code = EO#) 0.62 x10 3/uL 0.0-0.2 H BASOPHIL # (test code = BA#) 0.03 x10 3/uL 0.0-0.1 N PLATELET ESTIMATE (test code = ADEQUATE ADEQUATE PLTEST) PLATELET MORPHOLOGY (test code NORMAL NORMAL = PLTMORPH) DIFFERENTIAL [id number] 04:10:00 Test Item Value Reference Range Interpretation Comments POLYCHROMASIA (test code = POLC) 1+ NONE SEEN A ANISOCYTOSIS (test code = ANISO) 1+ NONE SEEN A MICROCYTOSIS (test code = MICR) 1+ NONE SEEN A BASIC METABOLIC [id number] 03:43:00 Test Item Value Reference Range Interpretation Comments SODIUM (test code = 151 mmol/L 137-145 H NA) POTASSIUM (test code 4.0 mmol/L 3.4-5.0 N = K) CHLORIDE (test code = 119 mmol/L 98-107 H CL) CARBON DIOXIDE (test 12 mmol/L 22-30 L code = CO2) GLUCOSE (test code = 66 mg/dL 74-106 L GLU) BLOOD UREA NITROGEN 89 mg/dL 9-20 H (test code = BUN) GLOMERULAR FILTRATION 11 >60 L The es timated RATE (test code = glomerular filtration GFR) rate is compute d usingpatient ra ce, age (>18), sex, and serum creatinine. If anyof the needed data elements are mi ssing the Laboratory cannot compute an kevin mation of the glomerul ar filtration rate . CREATININE (test code 7.4 mg/dL 0.7-1.3 H = CREAT) CALCIUM (test code = 8.7 mg/dL 8.4-10.2 N CA) [id number] 03:43:00 Test Item Value Reference Range Interpretation Comments MAGNESIUM (test code = MAG) 2.6 mg/dL 1.6-2.3 H CBC W/AUTO [id number] 03:27:00 Test Item Value Reference Range Interpretation Comments WHITE BLOOD CELL (test code = 5.7 x10 3/uL 5.0-12.0 N WBC) RED BLOOD CELL (test code = 3.11 x10 6/uL 4.70-6.10 L RBC) HEMOGLOBIN (test code = HGB) 8.7 g/dL 14.0-18.0 L HEMATOCRIT (test code = HCT) 29.5 % 37.0-49.0 L MEAN CELL VOLUME (test code = 95 fL 80-94 H MCV) MEAN CELL HGB (test code = MCH) 28.0 pg 27-31 N MEAN CELL HGB CONCENTRATION 29.5 g/dL 33-37 L (test code = MCHC) RED CELL DISTRIBUTION WIDTH 17.0 % 11.5-15.5 H (test code = RDW) PLATELET COUNT (test code = 335 x10 3/uL 130-400 N PLT) MEAN PLATELET VOLUME (test code 10.5 fL 9.4-16.4 N = MPV) NEUTROPHIL % (test code = NT%) 67.5 % 43-65 H IMMATURE GRANULOCYTE % (test 2.3 % 0.0-2.0 H code = IG%) LYMPHOCYTE % (test code = LY%) 7.9 % 20.5-45.5 L MONOCYTE % (test code = MO%) 10.9 % 5.5-11.7 N EOSINOPHIL % (test code = EO%) 10.9 % 0.9-2.9 H BASOPHIL % (test code = BA%) 0.5 % 0.2-1.0 N NUCLEATED RBC % (test code = 0.0 % 0-1.0 N NRBC%) NEUTROPHIL # (test code = NT#) 3.83 x10 3/uL 2.2-4.8 N IMMATURE GRANULOCYTE # (test 0.13 x10 3/uL 0-0.03 H code = IG#) LYMPHOCYTE # (test code = LY#) 0.45 x10 3/uL 1.3-2.9 L MONOCYTE # (test code = MO#) 0.62 x10 3/uL 0.3-0.8 N EOSINOPHIL # (test code = EO#) 0.62 x10 3/uL 0.0-0.2 H BASOPHIL # (test code = BA#) 0.03 x10 3/uL 0.0-0.1 N CBC W/AUTO [id number] 03:27:00 Test Item Value Reference Range Interpretation Comments WHITE BLOOD CELL (test code = 5.7 x10 3/uL 5.0-12.0 N WBC) RED BLOOD CELL (test code = 3.11 x10 6/uL 4.70-6.10 L RBC) HEMOGLOBIN (test code = HGB) 8.7 g/dL 14.0-18.0 L HEMATOCRIT (test code = HCT) 29.5 % 37.0-49.0 L MEAN CELL VOLUME (test code = 95 fL 80-94 H MCV) MEAN CELL HGB (test code = MCH) 28.0 pg 27-31 N MEAN CELL HGB CONCENTRATION 29.5 g/dL 33-37 L (test code = MCHC) RED CELL DISTRIBUTION WIDTH 17.0 % 11.5-15.5 H (test code = RDW) PLATELET COUNT (test code = 335 x10 3/uL 130-400 N PLT) MEAN PLATELET VOLUME (test code 10.5 fL 9.4-16.4 N = MPV) NEUTROPHIL % (test code = NT%) 67.5 % 43-65 H IMMATURE GRANULOCYTE % (test 2.3 % 0.0-2.0 H code = IG%) LYMPHOCYTE % (test code = LY%) 7.9 % 20.5-45.5 L MONOCYTE % (test code = MO%) 10.9 % 5.5-11.7 N EOSINOPHIL % (test code = EO%) 10.9 % 0.9-2.9 H BASOPHIL % (test code = BA%) 0.5 % 0.2-1.0 N NUCLEATED RBC % (test code = 0.0 % 0-1.0 N NRBC%) NEUTROPHIL # (test code = NT#) 3.83 x10 3/uL 2.2-4.8 N IMMATURE GRANULOCYTE # (test 0.13 x10 3/uL 0-0.03 H code = IG#) LYMPHOCYTE # (test code = LY#) 0.45 x10 3/uL 1.3-2.9 L MONOCYTE # (test code = MO#) 0.62 x10 3/uL 0.3-0.8 N EOSINOPHIL # (test code = EO#) 0.62 x10 3/uL 0.0-0.2 H BASOPHIL # (test code = BA#) 0.03 x10 3/uL 0.0-0.1 N [id number] 07:08:00 Test Item Value Reference Range Interpretation Comments GLUBED (test code = GLUBED) 83 MG/DL 74-106 N [id number] 07:08:00 Test Item Value Reference Range Interpretation Comments GLUBED (test code = GLUBED) 72 MG/DL 74-106 L [id number] 07:08:00 Test Item Value Reference Range Interpretation Comments GLUBED (test code = GLUBED) 84 MG/DL 74-106 N [id number] 07:08:00 Test Item Value Reference Range Interpretation Comments GLUBED (test code = GLUBED) 64 MG/DL 74-106 L BASIC METABOLIC [id number] 04:02:00 Test Item Value Reference Range Interpretation Comments SODIUM (test code = 149 mmol/L 137-145 H NA) POTASSIUM (test code 4.1 mmol/L 3.4-5.0 N = K) CHLORIDE (test code = 114 mmol/L 98-107 H CL) CARBON DIOXIDE (test 15 mmol/L 22-30 L code = CO2) GLUCOSE (test code = 73 mg/dL 74-106 L GLU) BLOOD UREA NITROGEN 78 mg/dL 9-20 H (test code = BUN) GLOMERULAR FILTRATION 12 >60 L The es timated RATE (test code = glomerular filtration GFR) rate is compute d usingpatient ra ce, age (>18), sex, and serum creatinine. If anyof the needed data elements are mi ssing the Laboratory cannot compute an kevin mation of the glomerul ar filtration rate . CREATININE (test code 6.8 mg/dL 0.7-1.3 H = CREAT) CALCIUM (test code = 8.8 mg/dL 8.4-10.2 N CA) CREATINE KINASE (CK)2020-07-12 04:02:00 Test Item Value Reference Range Interpretation Comments CREATINE KINASE (CK) (test code = CK) 92 U/L 55-170 N CBC W/AUTO [id number] 03:41:00 Test Item Value Reference Range Interpretation Comments WHITE BLOOD CELL (test code = 6.3 x10 3/uL 5.0-12.0 N WBC) RED BLOOD CELL (test code = 3.22 x10 6/uL 4.70-6.10 L RBC) HEMOGLOBIN (test code = HGB) 9.0 g/dL 14.0-18.0 L HEMATOCRIT (test code = HCT) 29.7 % 37.0-49.0 L MEAN CELL VOLUME (test code = 92 fL 80-94 N MCV) MEAN CELL HGB (test code = MCH) 28.0 pg 27-31 N MEAN CELL HGB CONCENTRATION 30.3 g/dL 33-37 L (test code = MCHC) RED CELL DISTRIBUTION WIDTH 16.4 % 11.5-15.5 H (test code = RDW) PLATELET COUNT (test code = 332 x10 3/uL 130-400 N PLT) MEAN PLATELET VOLUME (test code 10.2 fL 9.4-16.4 N = MPV) NEUTROPHIL % (test code = NT%) 66.0 % 43-65 H IMMATURE GRANULOCYTE % (test 2.4 % 0.0-2.0 H code = IG%) LYMPHOCYTE % (test code = LY%) 7.0 % 20.5-45.5 L MONOCYTE % (test code = MO%) 13.1 % 5.5-11.7 H EOSINOPHIL % (test code = EO%) 11.2 % 0.9-2.9 H BASOPHIL % (test code = BA%) 0.3 % 0.2-1.0 N NUCLEATED RBC % (test code = 0.0 % 0-1.0 N NRBC%) NEUTROPHIL # (test code = NT#) 4.18 x10 3/uL 2.2-4.8 N IMMATURE GRANULOCYTE # (test 0.15 x10 3/uL 0-0.03 H code = IG#) LYMPHOCYTE # (test code = LY#) 0.44 x10 3/uL 1.3-2.9 L MONOCYTE # (test code = MO#) 0.83 x10 3/uL 0.3-0.8 H EOSINOPHIL # (test code = EO#) 0.71 x10 3/uL 0.0-0.2 H BASOPHIL # (test code = BA#) 0.02 x10 3/uL 0.0-0.1 N [id number] 02:34:00 Test Item Value Reference Range Interpretation Comments GLUBED (test code = GLUBED) 74 MG/DL 74-106 N [id number] 02:34:00 Test Item Value Reference Range Interpretation Comments GLUBED (test code = GLUBED) 89 MG/DL 74-106 N [id number] 02:34:00 Test Item Value Reference Range Interpretation Comments GLUBED (test code = GLUBED) 62 MG/DL 74-106 L [id number] 21:01:00 Test Item Value Reference Range Interpretation Comments GLUBED (test code = GLUBED) 80 MG/DL 74-106 N - DUP ABD/PEL/SC [id number] 13:40:00 [facility] 1985 Sex: M FAX: Edy Adame MD [phone] Constable: St: ADM FAX: Lorenzo Chavez [phone] -------- Name: JORGE GOINS [facility] : 1985 Age/S: 34/M [address] Unit #: [id number] Loc: C.ICC2 [place] [address] Phys: Lorenzo Cardoza MD Acct: [id number] Dis Date: Status: ADM IN PHONE #: [phone] Exam Date: 07/11/2020 1257 FAX #: [phone] Reason: Concern for renal malperfusion EXAMS: CPT CODE: [id number] DUP ABD/PEL/SC COMP [id number] LOCATION: H43 EXAM: RENAL DUPLEX HISTORY: Concern for renal malperfusion. TECHNIQUE: Duplex sonography of the main renal arteries. COMPARISON: None FINDINGS: Duplexexam: Right: The main renal vein is patent. Low resistive arterial waveforms are present in the main renal artery. Main renal artery peak systolic velocity: 108.0 cm/sec RAR: 0.7 Left: The main renal vein is patent. Low resistive arterial waveform is present in the main renal artery. Main renal arterypeak systolic velocity: 110.2 cm/sec RAR: 0.7 PSV Mid-Aorta: 158.0I IMPRESSION: 1. Unremarkable duplex assessment of the main renal artery. No findings to indicate renal artery stenosis. at 1340 Reported and signed by: Danay Ramires MD CC: Edy Olmedo MD; Lorenzo Cardoza MD Technologist: DENISA GLOVER Trnscrd Date/Time/By: 07/11/2020 (1340) : By: [email or web address] PAGE 1 Signed Report FAX: Edy Adame MD [phone] Constable: St: ADM FAX: Lorenzo Chavez [phone] Name: JORGE GOINS [facility] : 1985 Age/S: 34/M [address] Unit #: [id number] Loc: .[address] [address] Phys: Lorenzo Cardoza MD Acct: [id number] Dis Date: Status: ADM IN PHONE #: [phone] Exam Date: 07/11/2020 1257 FAX #: [phone] Reason: Concern for renal malperfusion EXAMS: CPT CODE: [id number] DUP ABD/PEL/SC COMP 80170 (Continued) Orig Print D/T: S: 07/11/2020 (1343) PAGE 2 Signed [id number] 08:57:00 Test Item Value Reference Range Interpretation Comments GLUBED (test code = GLUBED) 67 MG/DL 74-106 L [id number] 08:57:00 Test Item Value Reference Range Interpretation Comments GLUBED (test code = GLUBED) 62 MG/DL 74-106 L [id number] 08:57:00 Test Item Value Reference Range Interpretation Comments GLUBED (test code = GLUBED) 70 MG/DL 74-106 L [id number] 08:57:00 Test Item Value Reference Range Interpretation Comments GLUBED (test code = GLUBED) 62 MG/DL 74-106 L BASIC METABOLIC [id number] 05:29:00 Test Item Value Reference Range Interpretation Comments SODIUM (test code = 145 mmol/L 137-145 N NA) POTASSIUM (test code 4.1 mmol/L 3.4-5.0 N = K) CHLORIDE (test code = 109 mmol/L 98-107 H CL) CARBON DIOXIDE (test 18 mmol/L 22-30 L code = CO2) GLUCOSE (test code = 68 mg/dL 74-106 L GLU) BLOOD UREA NITROGEN 72 mg/dL 9-20 H (test code = BUN) GLOMERULAR FILTRATION 15 >60 L The es timated RATE (test code = glomerular filtration GFR) rate is compute d usingpatient ra ce, age (>18), sex, and serum creatinine. If anyof the needed data elements are mi ssing the Laboratory cannot compute an kevin mation of the glomerul ar filtration rate . CREATININE (test code 5.6 mg/dL 0.7-1.3 H = CREAT) CALCIUM (test code = 9.2 mg/dL 8.4-10.2 N CA) CBC W/AUTO [id number] 04:51:00 Test Item Value Reference Range Interpretation Comments WHITE BLOOD CELL (test code = 9.5 x10 3/uL 5.0-12.0 N WBC) RED BLOOD CELL (test code = 3.29 x10 6/uL 4.70-6.10 L RBC) HEMOGLOBIN (test code = HGB) 9.2 g/dL 14.0-18.0 L HEMATOCRIT (test code = HCT) 30.6 % 37.0-49.0 L MEAN CELL VOLUME (test code = 93 fL 80-94 N MCV) MEAN CELL HGB (test code = MCH) 28.0 pg 27-31 N MEAN CELL HGB CONCENTRATION 30.1 g/dL 33-37 L (test code = MCHC) RED CELL DISTRIBUTION WIDTH 16.4 % 11.5-15.5 H (test code = RDW) PLATELET COUNT (test code = 368 x10 3/uL 130-400 N PLT) MEAN PLATELET VOLUME (test code 10.5 fL 9.4-16.4 N = MPV) NEUTROPHIL % (test code = NT%) 73.0 % 43-65 H IMMATURE GRANULOCYTE % (test 2.0 % 0.0-2.0 N code = IG%) LYMPHOCYTE % (test code = LY%) 5.3 % 20.5-45.5 L MONOCYTE % (test code = MO%) 11.7 % 5.5-11.7 N EOSINOPHIL % (test code = EO%) 7.7 % 0.9-2.9 H BASOPHIL % (test code = BA%) 0.3 % 0.2-1.0 N NUCLEATED RBC % (test code = 0.0 % 0-1.0 N NRBC%) NEUTROPHIL # (test code = NT#) 6.92 x10 3/uL 2.2-4.8 H IMMATURE GRANULOCYTE # (test 0.19 x10 3/uL 0-0.03 H code = IG#) LYMPHOCYTE # (test code = LY#) 0.50 x10 3/uL 1.3-2.9 L MONOCYTE # (test code = MO#) 1.11 x10 3/uL 0.3-0.8 H EOSINOPHIL # (test code = EO#) 0.73 x10 3/uL 0.0-0.2 H BASOPHIL # (test code = BA#) 0.03 x10 3/uL 0.0-0.1 N POC ARTERIAL BLOOD [id number] 03:47:00 Test Item Value Reference Range Interpretation Comments POC ARTERIAL BLOOD GAS PH 7.36 pH units 7.35-7.45 N (test code = POCPHA) POC ARTERIAL BLOOD GAS PCO2 35.4 mmHg 35-48 N (test code = IVTZLL3R) POC TCO2 ARTERIAL (test 20.3 mmol/L 22-29 L code = POCTCO2) POC ARTERIAL BLOOD GAS PO2 194.5 mmHg 83-108 H (test code = EIKVV5L) POC HCO3 ARTERIAL (test 20.1 mmol/L 21-28 L code = FFNUZG4A) POC BASE EXCESS (test code -4.7 mmol/L -2-3 L = POCBEA) POC O2 SATURATION (test 99.7 % 94-98 H code = POCO2S) ARTERIAL FIO2 (test code = 40 % FIO2A) PaO2/FiO2 (test code = 486.25 mm/Hg [id number]) ABG DELIVERY (test code = Adult Vent VISH) ABG VENT MODE (test code = CPAP/PS MODEA) ABG SITE (test code = R Radial SITEA) ALLENS TEST (test code = Positive ALLENS) SODIUM (POC) (test code = 140 mmol/L 138-146 N NA/ABG) POTASSIUM (POC) (test code 3.9 mmol/L 3.5-4.5 N = K/ABG) POC IONIZED CALCIUM (test 1.00 MMOL/L 1.15-1.33 L code = POCCA) POC GLUCOSE (test code = 67 mg/dL 74-100 L POCGLU) POC SAMPLE SOURCE (test Arterial Descript Specimen code = POCSAMPLE) [id number] 13:57:00 Test Item Value Reference Range Interpretation Comments GLUBED (test code = GLUBED) 77 MG/DL 74-106 N [id number] 06:49:00 Test Item Value Reference Range Interpretation Comments GLUBED (test code = GLUBED) 78 MG/DL 74-106 N - XR CHEST 1 [id number] 06:43:00 [facility] 1985 Sex: M FAX: Joselyn Dominguez NP [phone] Constable: St: [facility] FAX: Edy Adame MD [phone] Name: JORGE GOINS [facility] [place] : 1985 Age/S: 34/M [address] Unit #: [id number] Loc: [address] [address] Phys: Joselyn Calvo NP Acct: [id number] Dis Date: Status: ADM IN PHONE #: [phone] Exam Date: 021 0450 FAX #: [phone] Reason: TRACH TO VENT EXAMS: CPT CODE: [id number] XR CHEST 1 V 92939 Dictation location: [facility]. CHEST, FRONTAL VIEW HISTORY: TRACH TO VENT FINDINGS: Since 07/09/20, tracheostomy tube and nasogastric tube are stable in position. Slight improvement is seen in the pulmonary opacities especially in the right lung base. The heart size is normal. Aortic stent. Improvement of the pneumoperitoneum. IMPRESSION: Mild improvement in the pulmonary opacities especially in the right lung base. Probable decrease in the amount of pneumoperitoneum. at 0643 Reported and signed by: Shauna Sosa MD CC: Joselyn Calvo BRAZING MACHINE TENDER; Edy Olmedo MD Technologist: PIETER GARRISON RT (R) Trnscrd Date/Time/By: 07/10/2020 (0643) : By: [email or web address] PAGE 1 Signed Report FAX: Joselyn Dominguez NP [phone] Constable: St: [facility] FAX: Edy Adame MD [phone] Name: JORGE GOINS [facility] : 1985 Age/S: 34/M [address] Unit #: [id number] [facility] [place] [address] Phys: Joselyn Calvo BRAZING MACHINE TENDER Acct: [id number] Dis Date: Status: ADM INPHONE #: [phone] Exam Date: 07/10/2020 0450 FAX #: [phone] Reason: TRACH TO VENT EXAMS: CPT CODE: [id number] XR CHEST 1 V [id number] (Continued) Orig Print D/T: S: 07/10/2020 (0646) PAGE 2 Signed ReportBASIC METABOLIC [id number] 04:40:00 Test Item Value Reference Range Interpretation Comments SODIUM (test code = 144 mmol/L 137-145 N NA) POTASSIUM (test code 3.7 mmol/L 3.4-5.0 N = K) CHLORIDE (test code = 108 mmol/L 98-107 H CL) CARBON DIOXIDE (test 23 mmol/L 22-30 N code = CO2) GLUCOSE (test code = 117 mg/dL 74-106 H GLU) BLOOD UREA NITROGEN 57 mg/dL 9-20 H (test code = BUN) GLOMERULAR FILTRATION 23 >60 L The es timated RATE (test code = glomerular filtration GFR) rate is compute d usingpatient ra ce, age (>18), sex, and serum creatinine. If anyof the needed data elements are mi ssing the Laboratory cannot compute an kevin mation of the glomerul ar filtration rate . CREATININE (test code 3.9 mg/dL 0.7-1.3 H = CREAT) CALCIUM (test code = 8.9 mg/dL 8.4-10.2 N CA) POC ARTERIAL BLOOD [id number] 04:18:00 Test Item Value Reference Range Interpretation Comments POC ARTERIAL BLOOD GAS PH 7.39 pH units 7.35-7.45 N (test code = POCPHA) POC ARTERIAL BLOOD GAS PCO2 39.0 mmHg 35-48 N (test code = [id number]) POC TCO2 ARTERIAL (test 23.6 mmol/L 22-29 N code = POCTCO2) POC ARTERIAL BLOOD GAS PO2 151.8 mmHg 83-108 H (test code = PYGSN6F) POC HCO3 ARTERIAL (test 23.6 mmol/L 21-28 N code = [id number]) POC BASE EXCESS (test code -1.2 mmol/L -2-3 N = POCBEA) POC O2 SATURATION (test 99.3 % 94-98 H code = POCO2S) ARTERIAL FIO2 (test code = 40 % FIO2A) PaO2/FiO2 (test code = 379.50 mm/Hg [id number]) ABG DELIVERY (test code = AeroMask VISH) ABG VENT MODE (test code = PRVC MODEA) ABG PATIENT RESP RATE (test 14 /MIN 12-20 N code = RRPATA) ABG SITE (test code = R Brach SITEA) ALLENS TEST (test code = Positive ALLENS) SODIUM (POC) (test code = 140 mmol/L 138-146 N NA/ABG) POTASSIUM (POC) (test code 3.5 mmol/L 3.5-4.5 N = K/ABG) POC IONIZED CALCIUM (test 1.05 MMOL/L 1.15-1.33 L code = POCCA) POC GLUCOSE (test code = 96 mg/dL 74-100 N POCGLU) POC SAMPLE SOURCE (test Arterial Descript Specimen code = POCSAMPLE) CBC W/AUTO [id number] 04:01:00 Test Item Value Reference Range Interpretation Comments WHITE BLOOD CELL (test code = 11.4 x10 3/uL 5.0-12.0 N WBC) RED BLOOD CELL (test code = 3.50 x10 6/uL 4.70-6.10 L RBC) HEMOGLOBIN (test code = HGB) 10.0 g/dL 14.0-18.0 L HEMATOCRIT (test code = HCT) 32.6 % 37.0-49.0 L MEAN CELL VOLUME (test code = 93 fL 80-94 N MCV) MEAN CELL HGB (test code = MCH) 28.6 pg 27-31 N MEAN CELL HGB CONCENTRATION 30.7 g/dL 33-37 L (test code = MCHC) RED CELL DISTRIBUTION WIDTH 15.8 % 11.5-15.5 H (test code = RDW) PLATELET COUNT (test code = 335 x10 3/uL 130-400 N PLT) MEAN PLATELET VOLUME (test code 11.1 fL 9.4-16.4 N = MPV) NEUTROPHIL % (test code = NT%) 80.2 % 43-65 H IMMATURE GRANULOCYTE % (test 1.1 % 0.0-2.0 N code = IG%) LYMPHOCYTE % (test code = LY%) 3.9 % 20.5-45.5 L MONOCYTE % (test code = MO%) 8.8 % 5.5-11.7 N EOSINOPHIL % (test code = EO%) 5.7 % 0.9-2.9 H BASOPHIL % (test code = BA%) 0.3 % 0.2-1.0 N NUCLEATED RBC % (test code = 0.0 % 0-1.0 N NRBC%) NEUTROPHIL # (test code = NT#) 9.17 x10 3/uL 2.2-4.8 H IMMATURE GRANULOCYTE # (test 0.12 x10 3/uL 0-0.03 H code = IG#) LYMPHOCYTE # (test code = LY#) 0.45 x10 3/uL 1.3-2.9 L MONOCYTE # (test code = MO#) 1.00 x10 3/uL 0.3-0.8 H EOSINOPHIL # (test code = EO#) 0.65 x10 3/uL 0.0-0.2 H BASOPHIL # (test code = BA#) 0.03 x10 3/uL 0.0-0.1 N [id number] 13:37:00 Test Item Value Reference Range Interpretation Comments GLUBED (test code = GLUBED) 74 MG/DL 74-106 N [id number] 13:20:00 Test Item Value Reference Range Interpretation Comments VANCOMYCIN (test 21.41 ug/mL ~~~~~~~~~~~ ~~~~~~~~~~~~ code = VANCO) ~~~~~~~~~~~~~~ ~~~~~~THE RAPEUTIC REFERE NCE RANGE NOT ESTABLISHEDWHEN NOT DRAWN PEAK O R TROUGH LEVEL.~~~~~~~~~ ~~~~~~~~ ~~~~~~~~~~~~~~~ ~~~~~~~~ ~~~ [id number] 12:58:00 Test Item Value Reference Range Interpretation Comments POTASSIUM (test code = K) 3.7 mmol/L 3.4-5.0 N - XR CHEST 1 [id number] 07:18:00 [facility] 1985 Sex: M FAX: Joselyn Dominguez NP [phone] Constable: St: [facility] FAX: Edy Adame MD [phone] Name: JORGE GOINS [facility] : 1985 Age/S: 34/M [address] Unit #: [id number] Loc: C.ICC2 [place] [address] Phys: Joselyn Calvo NP Acct: [id number] Dis Date: Status: ADM IN PHONE #: [phone] Exam Date: 07/09/19529 FAX #: [phone] Reason: TRACH TO VENT EXAMS: CPT CODE: [id number] XR CHEST 1 V 02835 EXAM: - XR CHEST 1 V LOCATION: C3 HISTORY: TRACH TO VENT COMPARISON: 07/08/2020 FINDINGS: Single view of the chest. Patient is rotated. The nasogastric tube courses in the appropriate direction, but the distal aspect is outside the field of view. Tracheostomy tube overlies the tracheal shadow. No pneumothorax. Increasing airspace disease in the right lung base. The mediastinal contours are unremarkable/unchanged. No acute osseous findings are present. Pneumoperitoneum is again noted. IMPRESSION: Worsening right basilar pneumonia. Pneumoperitoneum again seen. at 0718 Reported and signed by: Denny Mohamud MD CC: Joselyn Calvo BRAZING MACHINE TENDER; Edy Olmedo MD Technologist: PERRY Bentleyrd Date/Time/By: 07/09/2020 (0718) : By: [email or web address] PAGE 1 Signed Report FAX: Joselyn Dominguez NP [phone] Constable: St: ADM FAX: Edy Adame MD [phone] -- Name: JORGE GOINS [place] : 1985 Age/S: 34/M [address] Unit #: [id number] Loc: [address] [address] Phys: Joselyn Calvo NP Acct: [id number] Dis Date: Status: ADM IN PHONE #: [phone] Exam Date: 07/09/2020529 FAX #: [phone] Reason: TRACH TO VENT EXAMS: CPT CODE: [id number] XR CHEST 1 V 05309 (Continued) Orig Print D/T: S: 07/09/2020 (0721) PAGE 2 [facility] [id number] 05:57:00 Test Item Value Reference Range Interpretation Comments POC ARTERIAL BLOOD GAS PH 7.36 pH units 7.35-7.45 N (test code = POCPHA) POC ARTERIAL BLOOD GAS PCO2 42.0 mmHg 35-48 N (test code = PUDOJW0O) POC TCO2 ARTERIAL (test 23.8 mmol/L 22-29 N code = POCTCO2) POC ARTERIAL BLOOD GAS PO2 113.7 mmHg 83-108 H (test code = GDKTO0H) POC HCO3 ARTERIAL (test 23.7 mmol/L 21-28 N code = [id number]) POC BASE EXCESS (test code -1.7 mmol/L -2-3 N = POCBEA) POC O2 SATURATION (test 98.3 % 94-98 H code = POCO2S) ARTERIAL FIO2 (test code = 50 % FIO2A) PaO2/FiO2 (test code = 227.40 mm/Hg [id number]) ABG DELIVERY (test code = Adult Vent VISH) ABG VENT MODE (test code = ASSIST CONTROL MODEA) ABG PATIENT RESP RATE (test 14 /MIN 12-20 N code = RRPATA) ABG SITE (test code = R Radial SITEA) ALLENS TEST (test code = Positive ALLENS) SODIUM (POC) (test code = 142 mmol/L 138-146 N NA/ABG) POTASSIUM (POC) (test code 2.8 mmol/L 3.5-4.5 L = K/ABG) POC IONIZED CALCIUM (test 1.08 MMOL/L 1.15-1.33 L code = POCCA) POC GLUCOSE (test code = 92 mg/dL 74-100 N POCGLU) POC SAMPLE SOURCE (test Arterial Descript Specimen code = POCSAMPLE) CBC W/MANUAL [id number] 04:32:00 Test Item Value Reference Range Interpretation Comments WHITE BLOOD CELL (test code = 10.6 x10 3/uL 5.0-12.0 N WBC) RED BLOOD CELL (test code = 3.27 x10 6/uL 4.70-6.10 L RBC) HEMOGLOBIN (test code = HGB) 9.3 g/dL 14.0-18.0 L HEMATOCRIT (test code = HCT) 31.4 % 37.0-49.0 L MEAN CELL VOLUME (test code = 96 fL 80-94 H MCV) MEAN CELL HGB (test code = MCH) 28.4 pg 27-31 N MEAN CELL HGB CONCENTRATION 29.6 g/dL 33-37 L (test code = MCHC) RED CELL DISTRIBUTION WIDTH 15.6 % 11.5-15.5 H (test code = RDW) PLATELET COUNT (test code = 284 x10 3/uL 130-400 N PLT) MEAN PLATELET VOLUME (test code 10.7 fL 9.4-16.4 N = MPV) TOTAL CELLS COUNTED (test code 100 #CELLS = TCC) SEGMENTED NEUTROPHILS (test 91 % 43-65 H code = SEG) ATYPICAL LYMPH (test code = 1 % 0-1 N ALYMPH) MONOCYTE (test code = MON) 3 % 5.5-11.7 L EOSINOPHIL (test code = EOS) 4 % 0.9-2.9 H PLASMA CELL (test code = ARIS) 1 % <1 POLYCHROMASIA (test code = 1+ NONE SEEN A POLC) ANISOCYTOSIS (test code = 1+ NONE SEEN A ANISO) MICROCYTOSIS (test code = MICR) 1+ NONE SEEN A PLATELET ESTIMATE (test code = ADEQUATE ADEQUATE PLTEST) PLATELET MORPHOLOGY (test code NORMAL NORMAL = PLTMORPH) BASIC METABOLIC [id number] 04:05:00 Test Item Value Reference Range Interpretation Comments SODIUM (test code = 142 mmol/L 137-145 N NA) POTASSIUM (test code 2.7 mmol/L 3.4-5.0 L Critica l Value = K) reported toFirs t Name:[id number] [place] Name:RESULTS RE AD BACK AND VERIFIEDby CMattLABMattRD, on , @ 6534. CHLORIDE (test code = 107 mmol/L 98-107 N CL) CARBON DIOXIDE (test 22 mmol/L 22-30 N code = CO2) GLUCOSE (test code = 133 mg/dL 74-106 H GLU) BLOOD UREA NITROGEN 44 mg/dL 9-20 H (test code = BUN) GLOMERULAR FILTRATION 42 >60 L The es timated RATE (test code = glomerular filtration GFR) rate is compute d usingpatient ra ce, age (>18), sex, and serum creatinine. If anyof the needed data elements are mi ssing the Laboratory cannot compute an kevin mation of the glomerul ar filtration rate . CREATININE (test code 2.3 mg/dL 0.7-1.3 H = CREAT) CALCIUM (test code = 8.3 mg/dL 8.4-10.2 L CA) CBC W/MANUAL [id number] 03:47:00 Test Item Value Reference Range Interpretation Comments WHITE BLOOD CELL (test code = 10.6 x10 3/uL 5.0-12.0 N WBC) RED BLOOD CELL (test code = 3.27 x10 6/uL 4.70-6.10 L RBC) HEMOGLOBIN (test code = HGB) 9.3 g/dL 14.0-18.0 L HEMATOCRIT (test code = HCT) 31.4 % 37.0-49.0 L MEAN CELL VOLUME (test code = 96 fL 80-94 H MCV) MEAN CELL HGB (test code = MCH) 28.4 pg 27-31 N MEAN CELL HGB CONCENTRATION 29.6 g/dL 33-37 L (test code = MCHC) RED CELL DISTRIBUTION WIDTH 15.6 % 11.5-15.5 H (test code = RDW) PLATELET COUNT (test code = 284 x10 3/uL 130-400 N PLT) MEAN PLATELET VOLUME (test code 10.7 fL 9.4-16.4 N = MPV) TOTAL CELLS COUNTED (test code #CELLS = TCC) SEGMENTED NEUTROPHILS (test % 43-65 code = SEG) LYMPHOCYTE (test code = LYMPH) % 20.5-45.5 CBC W/MANUAL [id number] 03:47:00 Test Item Value Reference Range Interpretation Comments WHITE BLOOD CELL (test code = 10.6 x10 3/uL 5.0-12.0 N WBC) RED BLOOD CELL (test code = 3.27 x10 6/uL 4.70-6.10 L RBC) HEMOGLOBIN (test code = HGB) 9.3 g/dL 14.0-18.0 L HEMATOCRIT (test code = HCT) 31.4 % 37.0-49.0 L MEAN CELL VOLUME (test code = 96 fL 80-94 H MCV) MEAN CELL HGB (test code = MCH) 28.4 pg 27-31 N MEAN CELL HGB CONCENTRATION 29.6 g/dL 33-37 L (test code = MCHC) RED CELL DISTRIBUTION WIDTH 15.6 % 11.5-15.5 H (test code = RDW) PLATELET COUNT (test code = 284 x10 3/uL 130-400 N PLT) MEAN PLATELET VOLUME (test code 10.7 fL 9.4-16.4 N = MPV) TOTAL CELLS COUNTED (test code #CELLS = TCC) SEGMENTED NEUTROPHILS (test % 43-65 code = SEG) LYMPHOCYTE (test code = LYMPH) % 20.5-45.5 [id number] 00:22:00 Test Item Value Reference Range Interpretation Comments GLUBED (test code = GLUBED) 75 MG/DL 74-106 N [id number] 18:45:00 Test Item Value Reference Range Interpretation Comments VANCOMYCIN (test 23.67 ug/mL ~~~~~~~~~~~ ~~~~~~~~~~~~ code = VANCO) ~~~~~~~~~~~~~~ ~~~~~~THE RAPEUTIC REFERE NCE RANGE NOT ESTABLISHEDWHEN NOT DRAWN PEAK O R TROUGH LEVEL.~~~~~~~~~ ~~~~~~~~ ~~~~~~~~~~~~~~~ ~~~~~~~~ ~~~ [id number] 18:15:00 Test Item Value Reference Range Interpretation Comments GLUBED (test code = GLUBED) 85 MG/DL 74-106 N [id number] 14:43:00 Test Item Value Reference Range Interpretation Comments GLUBED (test code = GLUBED) 87 MG/DL 74-106 N [id number] 14:11:00 Test Item Value Reference Range Interpretation Comments POTASSIUM (test code = K) 2.9 mmol/L 3.4-5.0 L POC ARTERIAL BLOOD [id number] 12:59:00 Test Item Value Reference Range Interpretation Comments POC ARTERIAL BLOOD GAS PH 7.34 pH units 7.35-7.45 L (test code = POCPHA) POC ARTERIAL BLOOD GAS PCO2 47.9 mmHg 35-48 N (test code = DRRMTZ5X) POC TCO2 ARTERIAL (test 25.9 mmol/L 22-29 N code = POCTCO2) POC ARTERIAL BLOOD GAS PO2 207.5 mmHg 83-108 H (test code = YLAZR6C) POC HCO3 ARTERIAL (test 25.8 mmol/L 21-28 N code = ZJDWGC1Z) POC BASE EXCESS (test code -0.3 mmol/L -2-3 N = POCBEA) POC O2 SATURATION (test 99.7 % 94-98 H code = POCO2S) ARTERIAL FIO2 (test code = 50 % FIO2A) PaO2/FiO2 (test code = 415.00 mm/Hg [id number]) ABG DELIVERY (test code = Adult Vent VISH) ABG VENT MODE (test code = PRVC MODEA) ABG PATIENT RESP RATE (test 14 /MIN 12-20 N code = RRPATA) ABG SITE (test code = R Radial SITEA) ALLENS TEST (test code = Positive ALLENS) SODIUM (POC) (test code = 144 mmol/L 138-146 N NA/ABG) POTASSIUM (POC) (test code 2.8 mmol/L 3.5-4.5 L = K/ABG) POC IONIZED CALCIUM (test 1.10 MMOL/L 1.15-1.33 L code = POCCA) POC GLUCOSE (test code = 100 mg/dL 74-100 N POCGLU) POC SAMPLE SOURCE (test Arterial Descript Specimen code = POCSAMPLE) [id number] 12:58:00 Test Item Value Reference Range Interpretation Comments GLUBED (test code = GLUBED) 64 MG/DL 74-106 L - XR CHEST 1 [id number] 10:22:00 [facility] : 1985 Sex: M FAX: Faby Mack MD [phone] Constable: St: [facility] FAX: Edy Adame MD [phone] Name: JORGE GOINS [facility] : 1985 Age/S: 34/M [address] Unit #: [id number] Loc: [address] [address] Phys: Faby Blanchard MD Acct: [id number] Dis Date: Status: ADM IN PHONE #: [phone] Exam Date: 07/08/2020 1000 FAX #: [phone] Reason: LUNG ATELECTASIS/DIFFCULTY BREATHING EXAMS: CPT CODE: [id number] XR CHEST 1 V 30355 EXAM: Portable chest one view. Location code:J9 HISTORY: Dyspnea COMPARISON: None available. COMMENT: An NG tube overlies the midabdomen. An aortic stent graft is noted. Rightlung base atelectasis and scarring is noted.. The lungs and pleural spaces are clear. Lungs are normally expanded. The aorta, pulmonary vasculature and mediastinum are within normal limits. Cardiac silhouette is enlarged and stable in size and contour. Visualized skeletal structures are unremarkable. IMPRESSION: No active disease in the chest. a t 1022 Reported and signed by: Rah Hollis MD CC: Faby Blanchard MD; Edy Olmedo MD Technologist: JOSS TANNER Trnmtrd Date/Time/By: 07/08/2020 (1022) : By: [email or web address] PAGE 1 Signed Report FAX: Faby Mack MD [phone] Constable: St: [facility] FAX: Edy Adame MD [phone] Name: JORGE GOINS [facility] : 1985 Age/S: 34/M [address] Unit #: [id number] Loc: [address] [address] Phys:Faby Blanchard MD Acct: [id number] Dis Date: Status: ADM IN PHONE #: [phone] Exam Date: 06/26 1000 FAX #: [phone] Reason: LUNG ATELECTASIS/DIFFCULTY BREATHING EXAMS: CPT CODE: [id number] XR CHEST 1 V 17511 (Continued) Orig Print D/T: S: 07/08/2020 (1025) PAGE 2 Signed [id number] 07:39:00 Test Item Value Reference Range Interpretation Comments GLUBED (test code = GLUBED) 85 MG/DL 74-106 N CBC W/AUTO [id number] 04:53:00 Test Item Value Reference Range Interpretation Comments WHITE BLOOD CELL (test code = 9.8 x10 3/uL 5.0-12.0 N WBC) RED BLOOD CELL (test code = 3.27 x10 6/uL 4.70-6.10 L RBC) HEMOGLOBIN (test code = HGB) 9.2 g/dL 14.0-18.0 L HEMATOCRIT (test code = HCT) 29.6 % 37.0-49.0 L MEAN CELL VOLUME (test code = 91 fL 80-94 N MCV) MEAN CELL HGB (test code = MCH) 28.1 pg 27-31 N MEAN CELL HGB CONCENTRATION 31.1 g/dL 33-37 L (test code = MCHC) RED CELL DISTRIBUTION WIDTH 15.7 % 11.5-15.5 H (test code = RDW) PLATELET COUNT (test code = 302 x10 3/uL 130-400 N PLT) MEAN PLATELET VOLUME (test code 10.7 fL 9.4-16.4 N = MPV) NEUTROPHIL % (test code = NT%) 80.6 % 43-65 H IMMATURE GRANULOCYTE % (test 1.1 % 0.0-2.0 N code = IG%) LYMPHOCYTE % (test code = LY%) 6.0 % 20.5-45.5 L MONOCYTE % (test code = MO%) 9.7 % 5.5-11.7 N EOSINOPHIL % (test code = EO%) 2.4 % 0.9-2.9 N BASOPHIL % (test code = BA%) 0.2 % 0.2-1.0 N NUCLEATED RBC % (test code = 0.0 % 0-1.0 N NRBC%) NEUTROPHIL # (test code = NT#) 7.87 x10 3/uL 2.2-4.8 H IMMATURE GRANULOCYTE # (test 0.11 x10 3/uL 0-0.03 H code = IG#) LYMPHOCYTE # (test code = LY#) 0.59 x10 3/uL 1.3-2.9 L MONOCYTE # (test code = MO#) 0.95 x10 3/uL 0.3-0.8 H EOSINOPHIL # (test code = EO#) 0.23 x10 3/uL 0.0-0.2 H BASOPHIL # (test code = BA#) 0.02 x10 3/uL 0.0-0.1 N PLATELET ESTIMATE (test code = ADEQUATE ADEQUATE PLTEST) PLATELET MORPHOLOGY (test code NORMAL NORMAL = PLTMORPH) WBC [id number] 04:53:00 Test Item Value Reference Range Interpretation Comments TOTAL CELLS COUNTED (test code = 100 #CELLS TCC) SEGMENTED NEUTROPHILS (test code = 85 % 43-65 H SEG) LYMPHOCYTE (test code = LYMPH) 1 % 20.5-45.5 L ATYPICAL LYMPH (test code = 2 % 0-1 H ALYMPH) MONOCYTE (test code = MON) 5 % 5.5-11.7 L EOSINOPHIL (test code = EOS) 5 % 0.9-2.9 H BASOPHIL (test code = BASO) 1 % 0.2-1.0 N PLASMA CELL (test code = ARIS) 1 % <1 POLYCHROMASIA (test code = POLC) 1+ NONE SEEN A ANISOCYTOSIS (test code = ANISO) 1+ NONE SEEN A MACROCYTOSIS (test code = MACR) 1+ NONE SEEN A BASIC METABOLIC [id number] 04:51:00 Test Item Value Reference Range Interpretation Comments SODIUM (test code = 142 mmol/L 137-145 N NA) POTASSIUM (test code 3.3 mmol/L 3.4-5.0 L = K) CHLORIDE (test code = 106 mmol/L 98-107 N CL) CARBON DIOXIDE (test 25 mmol/L 22-30 N code = CO2) GLUCOSE (test code = 86 mg/dL 74-106 N GLU) BLOOD UREA NITROGEN 40 mg/dL 9-20 H (test code = BUN) GLOMERULAR FILTRATION 60 >60 The es timated RATE (test code = glomerular filtration GFR) rate is compute d usingpatient ra ce, age (>18), sex, and serum creatinine. If anyof the needed data elements are mi ssing the Laboratory cannot compute an kevin mation of the glomerul ar filtration rate . CREATININE (test code 1.7 mg/dL 0.7-1.3 H = CREAT) CALCIUM (test code = 8.7 mg/dL 8.4-10.2 N CA) CBC W/AUTO [id number] 04:29:00 Test Item Value Reference Range Interpretation Comments WHITE BLOOD CELL (test code = 9.8 x10 3/uL 5.0-12.0 N WBC) RED BLOOD CELL (test code = 3.27 x10 6/uL 4.70-6.10 L RBC) HEMOGLOBIN (test code = HGB) 9.2 g/dL 14.0-18.0 L HEMATOCRIT (test code = HCT) 29.6 % 37.0-49.0 L MEAN CELL VOLUME (test code = 91 fL 80-94 N MCV) MEAN CELL HGB (test code = MCH) 28.1 pg 27-31 N MEAN CELL HGB CONCENTRATION 31.1 g/dL 33-37 L (test code = MCHC) RED CELL DISTRIBUTION WIDTH 15.7 % 11.5-15.5 H (test code = RDW) PLATELET COUNT (test code = 302 x10 3/uL 130-400 N PLT) MEAN PLATELET VOLUME (test code 10.7 fL 9.4-16.4 N = MPV) NEUTROPHIL % (test code = NT%) 80.6 % 43-65 H IMMATURE GRANULOCYTE % (test 1.1 % 0.0-2.0 N code = IG%) LYMPHOCYTE % (test code = LY%) 6.0 % 20.5-45.5 L MONOCYTE % (test code = MO%) 9.7 % 5.5-11.7 N EOSINOPHIL % (test code = EO%) 2.4 % 0.9-2.9 N BASOPHIL % (test code = BA%) 0.2 % 0.2-1.0 N NUCLEATED RBC % (test code = 0.0 % 0-1.0 N NRBC%) NEUTROPHIL # (test code = NT#) 7.87 x10 3/uL 2.2-4.8 H IMMATURE GRANULOCYTE # (test 0.11 x10 3/uL 0-0.03 H code = IG#) LYMPHOCYTE # (test code = LY#) 0.59 x10 3/uL 1.3-2.9 L MONOCYTE # (test code = MO#) 0.95 x10 3/uL 0.3-0.8 H EOSINOPHIL # (test code = EO#) 0.23 x10 3/uL 0.0-0.2 H BASOPHIL # (test code = BA#) 0.02 x10 3/uL 0.0-0.1 N WBC [id number] 04:29:00 Test Item Value Reference Range Interpretation Comments TOTAL CELLS COUNTED (test code = TCC) #CELLS SEGMENTED NEUTROPHILS (test code = % 43-65 SEG) LYMPHOCYTE (test code = LYMPH) % 20.5-45.5 POC ARTERIAL BLOOD [id number] 04:25:00 Test Item Value Reference Range Interpretation Comments POC ARTERIAL BLOOD GAS PH 7.49 pH units 7.35-7.45 H (test code = POCPHA) POC ARTERIAL BLOOD GAS PCO2 33.1 mmHg 35-48 L (test code = EEPTRR0W) POC TCO2 ARTERIAL (test 25.1 mmol/L 22-29 N code = POCTCO2) POC ARTERIAL BLOOD GAS PO2 154.2 mmHg 83-108 H (test code = [id number]) POC HCO3 ARTERIAL (test 25.4 mmol/L 21-28 N code = IJAIDJ2S) POC BASE EXCESS (test code 2.4 mmol/L -2-3 N = POCBEA) POC O2 SATURATION (test 99.5 % 94-98 H code = POCO2S) ARTERIAL FIO2 (test code = 35 % FIO2A) PaO2/FiO2 (test code = 440.57 mm/Hg [id number]) ABG VENT MODE (test code = PC/PS MODEA) ABG PRESSURE SUPPORT (test 12 cmH2O code = PSABG) SODIUM (POC) (test code = 145 mmol/L 138-146 N NA/ABG) POTASSIUM (POC) (test code 3.0 mmol/L 3.5-4.5 L = K/ABG) POC IONIZED CALCIUM (test 1.09 MMOL/L 1.15-1.33 L code = POCCA) POC GLUCOSE (test code = 85 mg/dL 74-100 N POCGLU) POC SAMPLE SOURCE (test Arterial Descript Specimen code = POCSAMPLE) CBC W/AUTO [id number] 04:25:00 Test Item Value Reference Range Interpretation Comments WHITE BLOOD CELL (test code = 9.8 x10 3/uL 5.0-12.0 N WBC) RED BLOOD CELL (test code = 3.27 x10 6/uL 4.70-6.10 L RBC) HEMOGLOBIN (test code = HGB) 9.2 g/dL 14.0-18.0 L HEMATOCRIT (test code = HCT) 29.6 % 37.0-49.0 L MEAN CELL VOLUME (test code = 91 fL 80-94 N MCV) MEAN CELL HGB (test code = MCH) 28.1 pg 27-31 N MEAN CELL HGB CONCENTRATION 31.1 g/dL 33-37 L (test code = MCHC) RED CELL DISTRIBUTION WIDTH 15.7 % 11.5-15.5 H (test code = RDW) PLATELET COUNT (test code = 302 x10 3/uL 130-400 N PLT) MEAN PLATELET VOLUME (test code 10.7 fL 9.4-16.4 N = MPV) NEUTROPHIL % (test code = NT%) 80.6 % 43-65 H IMMATURE GRANULOCYTE % (test 1.1 % 0.0-2.0 N code = IG%) LYMPHOCYTE % (test code = LY%) 6.0 % 20.5-45.5 L MONOCYTE % (test code = MO%) 9.7 % 5.5-11.7 N EOSINOPHIL % (test code = EO%) 2.4 % 0.9-2.9 N BASOPHIL % (test code = BA%) 0.2 % 0.2-1.0 N NUCLEATED RBC % (test code = 0.0 % 0-1.0 N NRBC%) NEUTROPHIL # (test code = NT#) 7.87 x10 3/uL 2.2-4.8 H IMMATURE GRANULOCYTE # (test 0.11 x10 3/uL 0-0.03 H code = IG#) LYMPHOCYTE # (test code = LY#) 0.59 x10 3/uL 1.3-2.9 L MONOCYTE # (test code = MO#) 0.95 x10 3/uL 0.3-0.8 H EOSINOPHIL # (test code = EO#) 0.23 x10 3/uL 0.0-0.2 H BASOPHIL # (test code = BA#) 0.02 x10 3/uL 0.0-0.1 N - XR CHEST 1 [id number] 04:01:00 [facility] 1985 Sex: M FAX: Joselyn Dominguez NP [phone] Constable: St: [facility] FAX: Edy Adame MD [phone] Name: JORGE GOINS [facility] : 1985 Age/S: 34/M [address] Unit #: [id number] Loc: C.ICC2 [place] [address] Phys:Joselyn Calvo NP Acct: [id number] Dis Date: Status: ADM IN PHONE #: [phone] Exam Date: 07/08/19152 FAX #: [phone] Reason: TRACH TO VENT EXAMS: CPT CODE: [id number] XR CHEST 1 V 92578 EXAM: - XR CHEST 1 V HISTORY: Follow-up. COMPARISON: July 07, 2020. FINDINGS: Single AP view of the chest is provided. Tracheostomy tube is present. Nasogastric tube is in stomach. There is interval development of right lung base opacity/atelectasis. No pneumothorax. Aortic stent. Pneumoperitoneum as known before. IMPRESSION: Interval development of right lung base infiltrate/atelectasis. Tracheostomy tube and nasogastric tube are present. Pneumoperitoneum as known before. at 0401 Reported and signed by: Carloz Hayden MD CC: Joselyn Calvo BRAZING MACHINE TENDER; Edy Olmedo MD Technologist: Candace Durbin Trnscrd Date/Time/By: 07/08/2020 (0401) : By: [email or web address] PAGE 1 Signed Report FAX: Joselyn Dominguez NP [phone] Constable: St: ADM FAX: Edy Adame MD [phone] Name: JORGE GOINS Brii [facility] : 1985 Age/S: 34/M [address] Unit #: [id number] Loc: [address] [address] Phys: Joselyn Calvo NP Acct: [id number] Dis Date: Status: ADM IN PHONE#: [phone] Exam Date: 07/08/2020 0153 FAX #: [phone] Reason: TRACH TO VENT EXAMS: CPT CODE: [id number] XR CHEST 1 V 08251 (Continued) Orig Print D/T: S: 07/08/2020 (0404) PAGE 2 Signed [id number] 22:58:00 Test Item Value Reference Range Interpretation Comments POTASSIUM (test code = K) 3.3 mmol/L 3.4-5.0 L [id number] 19:46:00 Test Item Value Reference Range Interpretation Comments GLUBED (test code = GLUBED) 109 MG/DL 74-106 H - XR CHEST 1 [id number] 06:29:00 [facility] : 1985 Sex: M FAX: Tona Russo NP [phone] Constable: St: [facility] FAX: Edy Adame MD [phone] Name: JORGE GOINS [facility] : 1985 Age/S: 34/M [address] Unit #: [id number] Loc: C.[facility] [place] [address] Phys: Tona Nicholas NP Acct: [id number] Dis Date: Status: ADM IN PHONE #: [phone] Exam Date:07/07/2020516 FAX #: [phone] Reason: f/u EXAMS: CPT CODE: [id number] XR CHEST 1 V 62117 Dictation location: H37. CHEST, FRONTAL VIEW HISTORY: Respiratory failure FINDINGS: Since 07/06/20, tracheostomy tube remains in good position. Nasogastric tube within the stomach. Right IJ central venous line within the SVC. Improvement is noted in the pulmonary edema. The heart is borderline enlarged. Descending aortic endovascular stent. Intraperitoneal free air may be slightly worsened. IMPRESSION: Improving pulmonary edema. Free air the upper abdomen may have slightly worsened. at 0629 Reported and signed by: Shauna Corral CC: Tona Nicholas NP; Edy Olmedo MD Technologist: TYRA CAT RT (R) Trnscrd Date/Time/By: 07/07/2020 (0629) : By: [email or web address] PAGE 1 Signed Report FAX: Tona Russo NP [phone]: St: ADM FAX: Edy Adame MD [phone] Name: JORGE GOINS Brii [facility] : 1985 Age/S: 34/M[address] Unit #: [id number] Loc: [address] [address] Phys: Tona Nicholas NP Acct: [id number] Dis Date: Status: ADM IN PHONE #: [phone] Exam Date: 07/07/2020516 FAX #: [phone] Reason: f/u EXAMS: CPT CODE: [id number] XR CHEST 1 V 20763 (Continued) Orig Print D/T: S: 07/07/2020 (0632) PAGE 2 Signed ReportCBC W/AUTO [id number] 04:49:00 Test Item Value Reference Range Interpretation Comments WHITE BLOOD CELL (test code = 11.1 x10 3/uL 5.0-12.0 N WBC) RED BLOOD CELL (test code = 3.30 x10 6/uL 4.70-6.10 L RBC) HEMOGLOBIN (test code = HGB) 9.3 g/dL 14.0-18.0 L HEMATOCRIT (test code = HCT) 30.6 % 37.0-49.0 L MEAN CELL VOLUME (test code = 93 fL 80-94 N MCV) MEAN CELL HGB (test code = MCH) 28.2 pg 27-31 N MEAN CELL HGB CONCENTRATION 30.4 g/dL 33-37 L (test code = MCHC) RED CELL DISTRIBUTION WIDTH 15.6 % 11.5-15.5 H (test code = RDW) PLATELET COUNT (test code = 308 x10 3/uL 130-400 N PLT) MEAN PLATELET VOLUME (test code 10.2 fL 9.4-16.4 N = MPV) NEUTROPHIL % (test code = NT%) 82.2 % 43-65 H IMMATURE GRANULOCYTE % (test 1.4 % 0.0-2.0 N code = IG%) LYMPHOCYTE % (test code = LY%) 6.2 % 20.5-45.5 L MONOCYTE % (test code = MO%) 9.0 % 5.5-11.7 N EOSINOPHIL % (test code = EO%) 1.0 % 0.9-2.9 N BASOPHIL % (test code = BA%) 0.2 % 0.2-1.0 N NUCLEATED RBC % (test code = 0.0 % 0-1.0 N NRBC%) NEUTROPHIL # (test code = NT#) 9.12 x10 3/uL 2.2-4.8 H IMMATURE GRANULOCYTE # (test 0.15 x10 3/uL 0-0.03 H code = IG#) LYMPHOCYTE # (test code = LY#) 0.69 x10 3/uL 1.3-2.9 L MONOCYTE # (test code = MO#) 1.00 x10 3/uL 0.3-0.8 H EOSINOPHIL # (test code = EO#) 0.11 x10 3/uL 0.0-0.2 N BASOPHIL # (test code = BA#) 0.02 x10 3/uL 0.0-0.1 N PLATELET ESTIMATE (test code = ADEQUATE ADEQUATE PLTEST) PLATELET MORPHOLOGY (test code NORMAL NORMAL = PLTMORPH) WBC [id number] 04:49:00 Test Item Value Reference Range Interpretation Comments TOTAL CELLS COUNTED (test code = 100 #CELLS TCC) SEGMENTED NEUTROPHILS (test code = 81 % 43-65 H SEG) LYMPHOCYTE (test code = LYMPH) 4 % 20.5-45.5 L ATYPICAL LYMPH (test code = 1 % 0-1 N ALYMPH) MONOCYTE (test code = MON) 14 % 5.5-11.7 H METAMYELOCYTE (test code = META) 1 % 0-0 H POLYCHROMASIA (test code = POLC) 1+ NONE SEEN A ANISOCYTOSIS (test code = ANISO) 1+ NONE SEEN A MICROCYTOSIS (test code = MICR) 1+ NONE SEEN A BASIC METABOLIC [id number] 04:37:00 Test Item Value Reference Range Interpretation Comments SODIUM (test code = 140 mmol/L 137-145 N NA) POTASSIUM (test code 3.1 mmol/L 3.4-5.0 L = K) CHLORIDE (test code = 103 mmol/L 98-107 N CL) CARBON DIOXIDE (test 27 mmol/L 22-30 N code = CO2) GLUCOSE (test code = 112 mg/dL 74-106 H GLU) BLOOD UREA NITROGEN 31 mg/dL 9-20 H (test code = BUN) GLOMERULAR FILTRATION 64 >60 The es timated RATE (test code = glomerular filtration GFR) rate is compute d usingpatient ra ce, age (>18), sex, and serum creatinine. If anyof the needed data elements are mi ssing the Laboratory cannot compute an kevin mation of the glomerul ar filtration rate . CREATININE (test code 1.6 mg/dL 0.7-1.3 H = CREAT) CALCIUM (test code = 8.6 mg/dL 8.4-10.2 N CA) [id number] 04:37:00 Test Item Value Reference Range Interpretation Comments MAGNESIUM (test code = MAG) 2.1 mg/dL 1.6-2.3 N CBC W/AUTO [id number] 04:15:00 Test Item Value Reference Range Interpretation Comments WHITE BLOOD CELL (test code = 11.1 x10 3/uL 5.0-12.0 N WBC) RED BLOOD CELL (test code = 3.30 x10 6/uL 4.70-6.10 L RBC) HEMOGLOBIN (test code = HGB) 9.3 g/dL 14.0-18.0 L HEMATOCRIT (test code = HCT) 30.6 % 37.0-49.0 L MEAN CELL VOLUME (test code = 93 fL 80-94 N MCV) MEAN CELL HGB (test code = MCH) 28.2 pg 27-31 N MEAN CELL HGB CONCENTRATION 30.4 g/dL 33-37 L (test code = MCHC) RED CELL DISTRIBUTION WIDTH 15.6 % 11.5-15.5 H (test code = RDW) PLATELET COUNT (test code = 308 x10 3/uL 130-400 N PLT) MEAN PLATELET VOLUME (test code 10.2 fL 9.4-16.4 N = MPV) NEUTROPHIL % (test code = NT%) 82.2 % 43-65 H IMMATURE GRANULOCYTE % (test 1.4 % 0.0-2.0 N code = IG%) LYMPHOCYTE % (test code = LY%) 6.2 % 20.5-45.5 L MONOCYTE % (test code = MO%) 9.0 % 5.5-11.7 N EOSINOPHIL % (test code = EO%) 1.0 % 0.9-2.9 N BASOPHIL % (test code = BA%) 0.2 % 0.2-1.0 N NUCLEATED RBC % (test code = 0.0 % 0-1.0 N NRBC%) NEUTROPHIL # (test code = NT#) 9.12 x10 3/uL 2.2-4.8 H IMMATURE GRANULOCYTE # (test 0.15 x10 3/uL 0-0.03 H code = IG#) LYMPHOCYTE # (test code = LY#) 0.69 x10 3/uL 1.3-2.9 L MONOCYTE # (test code = MO#) 1.00 x10 3/uL 0.3-0.8 H EOSINOPHIL # (test code = EO#) 0.11 x10 3/uL 0.0-0.2 N BASOPHIL # (test code = BA#) 0.02 x10 3/uL 0.0-0.1 N CBC W/AUTO [id number] 04:15:00 Test Item Value Reference Range Interpretation Comments WHITE BLOOD CELL (test code = 11.1 x10 3/uL 5.0-12.0 N WBC) RED BLOOD CELL (test code = 3.30 x10 6/uL 4.70-6.10 L RBC) HEMOGLOBIN (test code = HGB) 9.3 g/dL 14.0-18.0 L HEMATOCRIT (test code = HCT) 30.6 % 37.0-49.0 L MEAN CELL VOLUME (test code = 93 fL 80-94 N MCV) MEAN CELL HGB (test code = MCH) 28.2 pg 27-31 N MEAN CELL HGB CONCENTRATION 30.4 g/dL 33-37 L (test code = MCHC) RED CELL DISTRIBUTION WIDTH 15.6 % 11.5-15.5 H (test code = RDW) PLATELET COUNT (test code = 308 x10 3/uL 130-400 N PLT) MEAN PLATELET VOLUME (test code 10.2 fL 9.4-16.4 N = MPV) NEUTROPHIL % (test code = NT%) 82.2 % 43-65 H IMMATURE GRANULOCYTE % (test 1.4 % 0.0-2.0 N code = IG%) LYMPHOCYTE % (test code = LY%) 6.2 % 20.5-45.5 L MONOCYTE % (test code = MO%) 9.0 % 5.5-11.7 N EOSINOPHIL % (test code = EO%) 1.0 % 0.9-2.9 N BASOPHIL % (test code = BA%) 0.2 % 0.2-1.0 N NUCLEATED RBC % (test code = 0.0 % 0-1.0 N NRBC%) NEUTROPHIL # (test code = NT#) 9.12 x10 3/uL 2.2-4.8 H IMMATURE GRANULOCYTE # (test 0.15 x10 3/uL 0-0.03 H code = IG#) LYMPHOCYTE # (test code = LY#) 0.69 x10 3/uL 1.3-2.9 L MONOCYTE # (test code = MO#) 1.00 x10 3/uL 0.3-0.8 H EOSINOPHIL # (test code = EO#) 0.11 x10 3/uL 0.0-0.2 N BASOPHIL # (test code = BA#) 0.02 x10 3/uL 0.0-0.1 N WBC [id number] 04:15:00 Test Item Value Reference Range Interpretation Comments TOTAL CELLS COUNTED (test code = TCC) #CELLS SEGMENTED NEUTROPHILS (test code = % 43-65 SEG) LYMPHOCYTE (test code = LYMPH) % 20.5-45.5 POC ARTERIAL BLOOD [id number] 04:00:00 Test Item Value Reference Range Interpretation Comments POC ARTERIAL BLOOD GAS PH 7.45 pH units 7.35-7.45 N (test code = POCPHA) POC ARTERIAL BLOOD GAS PCO2 35.3 mmHg 35-48 N (test code = [id number]) POC TCO2 ARTERIAL (test 24.5 mmol/L 22-29 N code = POCTCO2) POC ARTERIAL BLOOD GAS PO2 192.8 mmHg 83-108 H (test code = QSCSM5H) POC HCO3 ARTERIAL (test 24.7 mmol/L 21-28 N code = QHUQHM8R) POC BASE EXCESS (test code 1.1 mmol/L -2-3 N = POCBEA) POC O2 SATURATION (test 99.7 % 94-98 H code = POCO2S) ARTERIAL FIO2 (test code = 35 % FIO2A) PaO2/FiO2 (test code = 550.85 mm/Hg NUP2LFE1) ABG DELIVERY (test code = Adult Vent VISH) ABG VENT MODE (test code = SIMV MODEA) ABG PATIENT RESP RATE (test 12 /MIN 12-20 N code = RRPATA) ABG SITE (test code = R Radial SITEA) ALLENS TEST (test code = N/A ALLENS) SODIUM (POC) (test code = 144 mmol/L 138-146 N NA/ABG) POTASSIUM (POC) (test code 2.9 mmol/L 3.5-4.5 L = K/ABG) POC IONIZED CALCIUM (test 1.10 MMOL/L 1.15-1.33 L code = POCCA) POC GLUCOSE (test code = 115 mg/dL 74-100 H POCGLU) POC SAMPLE SOURCE (test Arterial Descript Specimen code = POCSAMPLE) [id number] 23:25:00 Test Item Value Reference Range Interpretation Comments GLUBED (test code = GLUBED) 105 MG/DL 74-106 N VANCOMYCIN [id number] 19:35:00 Test Item Value Reference Range Interpretation Comments VANCOMYCIN TROUGH (test code = 23.58 ug/mL 10-20.0 H VANCT) VANCOMYCIN [id number] 16:47:00 Test Item Value Reference Range Interpretation Comments VANCOMYCIN PEAK (test code = 25.83 ug/mL 20.0-40.0 N VANCP) [id number] 12:40:00 Test Item Value Reference Range Interpretation Comments POTASSIUM (test code = K) 3.4 mmol/L 3.4-5.0 N [id number] 12:40:00 Test Item Value Reference Range Interpretation Comments MAGNESIUM (test code = MAG) 2.1 mg/dL 1.6-2.3 N [id number] 12:38:00 Test Item Value Reference Range Interpretation Comments POTASSIUM (test code = K) 3.4 mmol/L 3.4-5.0 N [id number] 12:38:00 Test Item Value Reference Range Interpretation Comments MAGNESIUM (test code = MAG) mg/dL 1.6-2.3 [id number] 09:24:00 Test Item Value Reference Range Interpretation Comments GLUBED (test code = GLUBED) 95 MG/DL 74-106 N - XR CHEST 1 [id number] 06:13:00 [facility] 1985 Sex: M FAX: Jeffrey Cole [phone] Constable: St: ADM FAX: Edy Adame MD [phone] ------- Name: JORGE GOINS [facility] : 1985 Age/S: 34/M [address] Unit #: [id number] Loc: [address] [address] Phys: Jeffrey Mae MD Acct: [id number] Dis Date: Status: ADM IN PHONE #: [phone] Exam Date: 07/06/2020 0405 FAX #: [phone] Reason: resp failure EXAMS: CPT CODE: [id number] XR CHEST1 V 71791 Dictation location: H37. CHEST, FRONTAL VIEW HISTORY: resp failure FINDINGS: Since 07/05/20 tracheostomy tube remains stable in position. Nasogastric tube noted within the stomach. Right IJ central venous line within the SVC. Cardiomegaly with slight worsening in the pulmonary edema. Free air in the upper abdomen slightly improved. Aortic endovascular stent. IMPRESSION: Mild worsening in the pulmonary edema. Slight improvement in intraperitoneal free air. at 0613 Reported and signed by: Shauna Sosa MD CC: Jeffrey Mae MD; Edy Olmedo MD Technologist: Loulou Dorado; TYRA CAT (R) [facility] Date/Time/By: 07/06/2020 (612) : By: [email or web address] PAGE 1 Signed Report FAX: Jeffrey Cole [phone] Constable: St: ADM FAX: Edy Adame MD [phone] Name: JORGE GOINS [facility] : 1985 Age/S: 34/M [address] Unit #: [id number] Loc: [address] [address] Phys: Jeffrey Mae MD Acct: [id number] Dis Date: Status: ADM IN PHONE #: [phone] Exam Date: 07/06/2020404 FAX #: [phone] Reason: resp failure EXAMS: CPT CODE: [id number] XR CHEST 1 V 53283 (Continued) Orig Print D/T: S: 07/06/2020 (0616) PAGE 2 [facility]LO[facility] [id number] 04:42:00 Test Item Value Reference Range Interpretation Comments POC ARTERIAL BLOOD GAS PH 7.52 pH units 7.35-7.45 HH (test code = POCPHA) POC ARTERIAL BLOOD GAS PCO2 35.8 mmHg 35-48 N (test code = TZLQZX9H) POC TCO2 ARTERIAL (test 30.1 mmol/L 22-29 H code = POCTCO2) POC ARTERIAL BLOOD GAS PO2 108.6 mmHg 83-108 H (test code = VTBOY9J) POC HCO3 ARTERIAL (test 29.0 mmol/L 21-28 H code = EBLMEQ4G) POC BASE EXCESS (test code 5.9 mmol/L -2-3 H = POCBEA) POC O2 SATURATION (test 98.7 % 94-98 H code = POCO2S) ARTERIAL FIO2 (test code = 35 % FIO2A) PaO2/FiO2 (test code = 310.28 mm/Hg AEG9OAD1) ABG DELIVERY (test code = Adult Vent VISH) ABG VENT MODE (test code = SIMV MODEA) ABG PATIENT RESP RATE (test 14 /MIN 12-20 N code = RRPATA) ABG PRESSURE SUPPORT (test 10 cmH2O code = PSABG) ABG SITE (test code = R Radial SITEA) ALLENS TEST (test code = N/A ALLENS) POC SAMPLE SOURCE (test Arterial Descript Specimen code = POCSAMPLE) Critical: Expected values Unspecified (06-Jul-2103:41:16) NoCOMPREHENSIVE METABOLIC [id number] 04:36:00 Test Item Value Reference Range Interpretation Comments SODIUM (test code = 141 mmol/L 137-145 N NA) POTASSIUM (test code 3.2 mmol/L 3.4-5.0 L = K) CHLORIDE (test code 103 mmol/L 98-107 N = CL) CARBON DIOXIDE (test 32 mmol/L 22-30 H code = CO2) GLUCOSE (test code = 84 mg/dL 74-106 N GLU) BLOOD UREA NITROGEN 30 mg/dL 9-20 H (test code = BUN) GLOMERULAR 111 >60 The estimated FILTRATION RATE glomerular f iltration (test code = GFR) rate is co mputed usingpatient ra ce, age (>18), sex, and serum creatinine. If anyof the needed data elements are mi ssing the Laboratory cannot compute an kevin mation of the glomerul ar filtration rate . CREATININE (test 1.0 mg/dL 0.7-1.3 N code = CREAT) TOTAL PROTEIN (test 6.8 g/dL 6.3-8.2 N code = PROT) ALBUMIN (test code = 3.3 g/dL 3.5-5.0 L ALB) CALCIUM (test code = 8.7 mg/dL 8.4-10.2 N CA) BILIRUBIN TOTAL 1.4 mg/dL 0.2-1.3 H "A positive bias may (test code = BILT) occur for patients taking Eltrombo pag(a bone marrow sti mulant used to treat thrombocytopeni a andaplastic ane ezequiel)." BILIRUBIN CONJUGATED 0 mg/dL 0-0.3 N "A posi tive bias may (test code = BILCON) occur f or patients taking Eltrombo pag(a bone marrow sti mulant used to treat thrombocytopeni a andaplastic ane ezequiel)." C ONJUGATE D BILIRUBIN IS THE REPLACEMENT ASS AY FOR DIRECTBILIRUBIN . BILIRUBIN 0.4 mg/dL 0-1.1 N UNCONJUGATED (test code = BILUNC) SGOT/AST (test code 48 U/L 15-46 H = AST) SGPT/ALT (test code 49 U/L 0-34 H = ALT) ALKALINE PHOSPHATASE 189 U/L 38-126 H (test code = ALKP) [id number] 04:36:00 Test Item Value Reference Range Interpretation Comments MAGNESIUM (test code = MAG) 2.0 mg/dL 1.6-2.3 N COMPREHENSIVE METABOLIC [id number] 04:34:00 Test Item Value Reference Range Interpretation Comments SODIUM (test code = 141 mmol/L 137-145 N NA) POTASSIUM (test code 3.2 mmol/L 3.4-5.0 L = K) CHLORIDE (test code 103 mmol/L 98-107 N = CL) CARBON DIOXIDE (test 32 mmol/L 22-30 H code = CO2) GLUCOSE (test code = 84 mg/dL 74-106 N GLU) BLOOD UREA NITROGEN 30 mg/dL 9-20 H (test code = BUN) GLOMERULAR 111 >60 The estimated FILTRATION RATE glomerular f iltration (test code = GFR) rate is co mputed usingpatient ra ce, age (>18), sex, and serum creatinine. If anyof the needed data elements are mi ssing the Laboratory cannot compute an kevin mation of the glomerul ar filtration rate . CREATININE (test 1.0 mg/dL 0.7-1.3 N code = CREAT) TOTAL PROTEIN (test 6.8 g/dL 6.3-8.2 N code = PROT) ALBUMIN (test code = 3.3 g/dL 3.5-5.0 L ALB) CALCIUM (test code = 8.7 mg/dL 8.4-10.2 N CA) BILIRUBIN TOTAL 1.4 mg/dL 0.2-1.3 H "A positive bias may (test code = BILT) occur for patients taking Eltrombo pag(a bone marrow sti mulant used to treat thrombocytopeni a andaplastic ane ezequiel)." BILIRUBIN CONJUGATED 0 mg/dL 0-0.3 N "A posi tive bias may (test code = BILCON) occur f or patients taking Eltrombo pag(a bone marrow sti mulant used to treat thrombocytopeni a andaplastic ane ezequiel)." C ONJUGATE D BILIRUBIN IS THE REPLACEMENT ASS AY FOR DIRECTBILIRUBIN . BILIRUBIN 0.4 mg/dL 0-1.1 N UNCONJUGATED (test code = BILUNC) SGOT/AST (test code 48 U/L 15-46 H = AST) SGPT/ALT (test code U/L 0-34 = ALT) ALKALINE PHOSPHATASE 189 U/L 38-126 H (test code = ALKP) [id number] 04:34:00 Test Item Value Reference Range Interpretation Comments MAGNESIUM (test code = MAG) mg/dL 1.6-2.3 CBC W/AUTO [id number] 04:08:00 Test Item Value Reference Range Interpretation Comments WHITE BLOOD CELL (test code = 8.0 x10 3/uL 5.0-12.0 N WBC) RED BLOOD CELL (test code = 3.39 x10 6/uL 4.70-6.10 L RBC) HEMOGLOBIN (test code = HGB) 9.8 g/dL 14.0-18.0 L HEMATOCRIT (test code = HCT) 31.5 % 37.0-49.0 L MEAN CELL VOLUME (test code = 93 fL 80-94 N MCV) MEAN CELL HGB (test code = MCH) 28.9 pg 27-31 N MEAN CELL HGB CONCENTRATION 31.1 g/dL 33-37 L (test code = MCHC) RED CELL DISTRIBUTION WIDTH 15.4 % 11.5-15.5 N (test code = RDW) PLATELET COUNT (test code = 317 x10 3/uL 130-400 N PLT) MEAN PLATELET VOLUME (test code 10.8 fL 9.4-16.4 N = MPV) NEUTROPHIL % (test code = NT%) 82.4 % 43-65 H IMMATURE GRANULOCYTE % (test 0.4 % 0.0-2.0 N code = IG%) LYMPHOCYTE % (test code = LY%) 6.9 % 20.5-45.5 L MONOCYTE % (test code = MO%) 7.4 % 5.5-11.7 N EOSINOPHIL % (test code = EO%) 2.7 % 0.9-2.9 N BASOPHIL % (test code = BA%) 0.2 % 0.2-1.0 N NUCLEATED RBC % (test code = 0.0 % 0-1.0 N NRBC%) NEUTROPHIL # (test code = NT#) 6.61 x10 3/uL 2.2-4.8 H IMMATURE GRANULOCYTE # (test 0.03 x10 3/uL 0-0.03 N code = IG#) LYMPHOCYTE # (test code = LY#) 0.55 x10 3/uL 1.3-2.9 L MONOCYTE # (test code = MO#) 0.59 x10 3/uL 0.3-0.8 N EOSINOPHIL # (test code = EO#) 0.22 x10 3/uL 0.0-0.2 H BASOPHIL # (test code = BA#) 0.02 x10 3/uL 0.0-0.1 N [id number] 22:02:00 Test Item Value Reference Range Interpretation Comments GLUBED (test code = GLUBED) 80 MG/DL 74-106 N [id number] 16:50:00 Test Item Value Reference Range Interpretation Comments GLUBED (test code = GLUBED) 72 MG/DL 74-106 L [id number] 13:14:00 Test Item Value Reference Range Interpretation Comments POTASSIUM (test code = K) 3.5 mmol/L 3.4-5.0 N [id number] 13:14:00 Test Item Value Reference Range Interpretation Comments MAGNESIUM (test code = MAG) 2.1 mg/dL 1.6-2.3 N [id number] 13:12:00 Test Item Value Reference Range Interpretation Comments POTASSIUM (test code = K) 3.5 mmol/L 3.4-5.0 N [id number] 13:12:00 Test Item Value Reference Range Interpretation Comments MAGNESIUM (test code = MAG) mg/dL 1.6-2.3 [id number] 08:07:00 Test Item Value Reference Range Interpretation Comments GLUBED (test code = GLUBED) 73 MG/DL 74-106 L - XR CHEST 1 [id number] 07:46:00 [facility] 1985 Sex: M FAX: Papi Hood [phone] Constable: St: ADM FAX: Edy Adame MD [phone] -------- Name: JORGE GOINS [facility] : 1985 Age/S: 34/M [address] Unit #: [id number] Loc: [address] [address]Xiuq: Papi England MD Acct: [id number] Dis Date: Status: ADM IN PHONE #: [phone] Exam Date: 07/05/2020539 FAX #: [phone] Reason: chf EXAMS: CPT CODE: [id number] XR CHEST 1 V 17000 Location Code: C3 CHEST AP HISTORY: CHF COMPARISON: Chest radiograph from prior day FINDINGS: Tracheostomy tube terminates in the mid trachea. Right IJ catheter tip is at proximal SVC. Moderate central vascular congestion remains. Hazy infiltrate/edema persists in the left upper lobe. There is slight overall improved aeration of the lungs however compared to prior day exam. Cardiomediastinal silhouette is stable with mild cardiomegaly. Diffuse aortic stent noted. ? Free intra-abdominal air versus artifact under the right hemidiaphragm, less apparent. IMPRESSION: Moderate central vascular congestion remains. Hazy infiltrate/edema persists in the left upper lobe. Slight overall improved aeration of the lungs however compared to prior day exam. at 0746 Reported and signed by: Fay Granados MD CC: Papi England MD; Edy Olmedo MD Technologist: PERRY Yaeger Date/Time/By: 07/05/2020 (0746) : By: [email or web address] PAGE 1 Signed Report FAX: Papi Hood [phone] Constable: St: ADM FAX: Edy Adame MD [phone] Name: JORGE GOINS Brii [facility] : 1985 Age/S: 34/M [address] Unit #: [id number] Loc: [address] [address] Phys: Papi England MD Acct: [id number] Dis Date: Status: ADM IN PHONE #: [phone] Exam Date: 07/05/2020539 FAX #: [phone] Reason: chf EXAMS: CPT CODE: [id number] XR CHEST 1 V 61898 (Continued) Orig Print D/T: S: 07/05/2020 (0749) PAGE 2 Signed [id number] 06:08:00 Test Item Value Reference Range Interpretation Comments GLUBED (test code = GLUBED) 82 MG/DL 74-106 N POC ARTERIAL BLOOD [id number] 05:24:00 Test Item Value Reference Range Interpretation Comments POC ARTERIAL BLOOD GAS PH 7.49 pH units 7.35-7.45 H (test code = POCPHA) POC ARTERIAL BLOOD GAS PCO2 36.7 mmHg 35-48 N (test code = CRBBHH1I) POC TCO2 ARTERIAL (test 27.6 mmol/L 22-29 N code = POCTCO2) POC ARTERIAL BLOOD GAS PO2 124.3 mmHg 83-108 H (test code = HLQPD9S) POC HCO3 ARTERIAL (test 28.2 mmol/L 21-28 H code = HSJRZQ7U) POC BASE EXCESS (test code 4.7 mmol/L -2-3 H = POCBEA) POC O2 SATURATION (test 99.1 % 94-98 H code = POCO2S) ARTERIAL FIO2 (test code = 30 % FIO2A) PaO2/FiO2 (test code = 414.33 mm/Hg OBL4MNR3) ABG DELIVERY (test code = Adult Vent VISH) ABG VENT MODE (test code = SIMV MODEA) ABG PATIENT RESP RATE (test 12 /MIN 12-20 N code = RRPATA) ABG PRESSURE SUPPORT (test 10 cmH2O code = PSABG) ABG SITE (test code = L Radial SITEA) ALLENS TEST (test code = Positive ALLENS) SODIUM (POC) (test code = 139 mmol/L 138-146 N NA/ABG) POTASSIUM (POC) (test code 3.6 mmol/L 3.5-4.5 N = K/ABG) POC IONIZED CALCIUM (test 1.14 MMOL/L 1.15-1.33 L code = POCCA) POC GLUCOSE (test code = 95 mg/dL 74-100 N POCGLU) POC SAMPLE SOURCE (test Arterial Descript Specimen code = POCSAMPLE) Critical: Notify LIANA rod (05-Jul-20 05:22:32) Read backokBASIC METABOLIC [id number] 02:51:00 Test Item Value Reference Range Interpretation Comments SODIUM (test code = 141 mmol/L 137-145 N NA) POTASSIUM (test code 3.2 mmol/L 3.4-5.0 L = K) CHLORIDE (test code = 100 mmol/L 98-107 N CL) CARBON DIOXIDE (test 34 mmol/L 22-30 H code = CO2) GLUCOSE (test code = 91 mg/dL 74-106 N GLU) BLOOD UREA NITROGEN 28 mg/dL 9-20 H (test code = BUN) GLOMERULAR FILTRATION 90 >60 The es timated RATE (test code = glomerular filtration GFR) rate is compute d usingpatient ra ce, age (>18), sex, and serum creatinine. If anyof the needed data elements are mi ssing the Laboratory cannot compute an kevin mation of the glomerul ar filtration rate . CREATININE (test code 1.2 mg/dL 0.7-1.3 N = CREAT) CALCIUM (test code = 9.1 mg/dL 8.4-10.2 N CA) [id number] 02:51:00 Test Item Value Reference Range Interpretation Comments TRIGLYCERIDES (test 186 mg/dL TRIGLYCE RIDES code = TRIG) REFERENCE RANGE:Normal: < 150 mg/dLBorderline High: 150-199 mg/dLHi gh: 200-499 mg/dLVe ry High: >=500 mg/ dL [id number] 02:51:00 Test Item Value Reference Range Interpretation Comments MAGNESIUM (test code = MAG) 2.3 mg/dL 1.6-2.3 N CBC W/AUTO [id number] 02:37:00 Test Item Value Reference Range Interpretation Comments WHITE BLOOD CELL (test code = 7.3 x10 3/uL 5.0-12.0 N WBC) RED BLOOD CELL (test code = 3.57 x10 6/uL 4.70-6.10 L RBC) HEMOGLOBIN (test code = HGB) 10.1 g/dL 14.0-18.0 L HEMATOCRIT (test code = HCT) 33.3 % 37.0-49.0 L MEAN CELL VOLUME (test code = 93 fL 80-94 N MCV) MEAN CELL HGB (test code = MCH) 28.3 pg 27-31 N MEAN CELL HGB CONCENTRATION 30.3 g/dL 33-37 L (test code = MCHC) RED CELL DISTRIBUTION WIDTH 15.3 % 11.5-15.5 N (test code = RDW) PLATELET COUNT (test code = 326 x10 3/uL 130-400 N PLT) MEAN PLATELET VOLUME (test code 10.5 fL 9.4-16.4 N = MPV) NEUTROPHIL % (test code = NT%) 82.7 % 43-65 H IMMATURE GRANULOCYTE % (test 0.3 % 0.0-2.0 N code = IG%) LYMPHOCYTE % (test code = LY%) 6.7 % 20.5-45.5 L MONOCYTE % (test code = MO%) 8.3 % 5.5-11.7 N EOSINOPHIL % (test code = EO%) 1.7 % 0.9-2.9 N BASOPHIL % (test code = BA%) 0.3 % 0.2-1.0 N NUCLEATED RBC % (test code = 0.0 % 0-1.0 N NRBC%) NEUTROPHIL # (test code = NT#) 6.01 x10 3/uL 2.2-4.8 H IMMATURE GRANULOCYTE # (test 0.02 x10 3/uL 0-0.03 N code = IG#) LYMPHOCYTE # (test code = LY#) 0.49 x10 3/uL 1.3-2.9 L MONOCYTE # (test code = MO#) 0.60 x10 3/uL 0.3-0.8 N EOSINOPHIL # (test code = EO#) 0.12 x10 3/uL 0.0-0.2 N BASOPHIL # (test code = BA#) 0.02 x10 3/uL 0.0-0.1 N - XR ABDOMEN 1 [id number] 20:36:00 [facility] : 1985 Sex: M FAX: Kleber Newby MD [phone] Constable: St: [facility] FAX: Edy Adame MD [phone] Name: JORGE GOINS [facility] : 1985 Age/S: 34/M [address] Unit #: [id number] Loc: [address] [address] Phys:Kleber Newby MD Acct: [id number] Dis Date: Status: ADM IN PHONE #: [phone] Exam Date: 07/04/191939 FAX #: [phone] Reason: ABDOMINAL DISTENTION EXAMS: CPT CODE: [id number] XR ABDOMEN 1 V [id number] EXAM: ABDOMEN ONE VIEW INDICATION: ABDOMINAL DISTENTION LOCATION: B2 COMPARISON: July 03, 2020 TECHNIQUE: AP view of the abdomen. FINDINGS: PEG tube is seen in similar position. There is diffuse distention of the bowel loops throughout the abdomen or pelvis. There is pneumoperitoneum noted within the upper abdomen similar to the prior examination. No abnormal calcifications. There is a vascular stent noted. The osseous structures are unremarkable. IMPRESSION: Diffuse bowel distention noted throughout the abdomen and pelvis with moderate pneumoperitoneum in the upper abdomen. These findings are unchanged from the prior examination. at 2035 Reported and signed by: Kim Morrow MD CC: Kleber Newby MD; Edy Olmedo MD Technologist: RT Sade (R) Trnscrd Date/Time/By: 07/04/2020 (2035) : By: [email or web address] PAGE 1 Signed Report FAX: Kleber Newby MD [phone] Constable: St: ADM FAX: Edy Adame MD [phone] -------- Name: JORGE GOINS [facility] : 1985 Age/S: 34/M [address] Unit #: [id number] Loc: C88 [address] [address] Phys: Kleber Newby MD Acct: [id number] Dis Date: Status: ADM IN PHONE #: [phone] Exam Date: 07/04/20201939 FAX #: [phone] Reason: ABDOMINAL DISTENTION EXAMS: CPT CODE: [id number] XR ABDOMEN 1 V 47229 (Continued) Orig Print D/T: S: 07/04/2020 (2038) PAGE 2 Signed [id number] 18:57:00 Test Item Value Reference Range Interpretation Comments POTASSIUM (test code = K) 3.1 mmol/L 3.4-5.0 L [id number] 13:17:00 Test Item Value Reference Range Interpretation Comments POTASSIUM (test code = K) 3.1 mmol/L 3.4-5.0 L [id number] 13:17:00 Test Item Value Reference Range Interpretation Comments MAGNESIUM (test code = MAG) 2.1 mg/dL 1.6-2.3 N [id number] 13:16:00 Test Item Value Reference Range Interpretation Comments POTASSIUM (test code = K) 3.1 mmol/L 3.4-5.0 L [id number] 13:16:00 Test Item Value Reference Range Interpretation Comments MAGNESIUM (test code = MAG) mg/dL 1.6-2.3 [id number] 12:49:00 Test Item Value Reference Range Interpretation Comments GLUBED (test code = GLUBED) 71 MG/DL 74-106 L - XR CHEST 1 [id number] 08:00:00 [facility] Brii : 1985 Sex: M FAX: Paresh Pavon [phone] Constable: St: [facility] FAX: Edy Adame MD [phone] Name: JORGE GOINS [facility] [place] : 1985 Age/S: 34/M [address] Unit #: [id number] Loc: [address] [place] [address] Phys: Paresh Pavon BRAZING MACHINE TENDER Acct: [id number] Dis Date: Status: ADM IN PHONE #: [phone] Exam Date: 07/04/2020 0550 FAX #: [phone] Reason: f/u EXAMS: CPT CODE: [id number] XR CHEST 1 V 96816 Location Code: C3 CHEST AP HISTORY: Follow-up intubation COMPARISON: Chest radiograph from prior day FINDINGS: Tracheostomy tube terminates in the mid trachea. Right IJ catheter tip is at the SVC. Cardiomegaly is redemonstrated. Extensive aortic (descending aorta) stent is again noted. Moderate hazy diffuse bilateral pulmonary infiltrates are seen, this have progressed since prior exam. Trace residual free intra-abdominal air is seen, decreased. IMPRESSION: 1. Moderate hazy diffuse bilateral pulmonary infiltrates are seen, increased, possibly representing progressing interstitial edema. 2. Cardiomegaly with cardiac stent redemonstrated 3. Trace residual free intra- abdominal air is seen, decreased. at 0800 Reported and signed by: Fay Granados MD CC: Paresh Pavon BRAZING MACHINE TENDER; Edy Olmedo MD Technologist: ALAN PALACIO (Brii) Trnscrd Date/Time/By: 07/04/2020 (0800) : By: LourdesEFM1 PAGE 1 Signed Report FAX: Paresh Pavon [phone] Constable: St: ADM FAX: Edy Adame MD [phone] [facility] 1985 Age/S: 34[facility]M [address] Unit #: [id number] Loc: Neil[address] [place] [address] Phys: Paresh Pavon BRAZING MACHINE TENDER Acct: [id number] Dis Date: Status: ADM IN PHONE #: [phone] Exam Date: 02/2021 0565 FAX #: [phone] Reason: f/u EXAMS: CPT CODE: [id number] XR CHEST 1 V 85414 (Continued) Orig Print D/T: S: 07/04/2020 (0803) PAGE 2 Signed Report [id number] 05:57:00 Test Item Value Reference Range Interpretation Comments GLUBED (test code = GLUBED) 77 MG/DL 74-106 N [id number] 05:50:00 Test Item Value Reference Range Interpretation Comments GLUBED (test code = GLUBED) 92 MG/DL 74-106 N [id number] 05:50:00 Test Item Value Reference Range Interpretation Comments GLUBED (test code = GLUBED) 93 MG/DL 74-106 N [id number] 05:49:00 Test Item Value Reference Range Interpretation Comments GLUBED (test code = GLUBED) 100 MG/DL 74-106 N POC ARTERIAL BLOOD [id number] 04:52:00 Test Item Value Reference Range Interpretation Comments POC ARTERIAL BLOOD GAS PH 7.46 pH units 7.35-7.45 H (test code = POCPHA) POC ARTERIAL BLOOD GAS PCO2 42.2 mmHg 35-48 N (test code = YHTCXW6L) POC TCO2 ARTERIAL (test 29.7 mmol/L 22-29 H code = POCTCO2) POC ARTERIAL BLOOD GAS PO2 104.7 mmHg 83-108 N (test code = HZUZT6M) POC HCO3 ARTERIAL (test 30.2 mmol/L 21-28 H code = GRADCO9T) POC BASE EXCESS (test code 5.8 mmol/L -2-3 H = POCBEA) POC O2 SATURATION (test 98.3 % 94-98 H code = POCO2S) ARTERIAL FIO2 (test code = 30 % FIO2A) PaO2/FiO2 (test code = 349.00 mm/Hg [id number]) ABG DELIVERY (test code = Adult Vent VISH) ABG VENT MODE (test code = SIMV MODEA) ABG PATIENT RESP RATE (test 12 /MIN 12-20 N code = RRPATA) ABG SITE (test code = R Radial SITEA) ALLENS TEST (test code = Negative ALLENS) SODIUM (POC) (test code = 142 mmol/L 138-146 N NA/ABG) POTASSIUM (POC) (test code 3.1 mmol/L 3.5-4.5 L = K/ABG) POC IONIZED CALCIUM (test 1.14 MMOL/L 1.15-1.33 L code = POCCA) POC GLUCOSE (test code = 85 mg/dL 74-100 N POCGLU) POC SAMPLE SOURCE (test Arterial Descript Specimen code = POCSAMPLE) Critical: Notify LIANA rod (04-Jul-20 04:50:40) Read backokBASIC METABOLIC [id number] 03:07:00 Test Item Value Reference Range Interpretation Comments SODIUM (test code = 141 mmol/L 137-145 N NA) POTASSIUM (test code 2.9 mmol/L 3.4-5.0 L = K) CHLORIDE (test code = 99 mmol/L 98-107 N CL) CARBON DIOXIDE (test 34 mmol/L 22-30 H code = CO2) GLUCOSE (test code = 82 mg/dL 74-106 N GLU) BLOOD UREA NITROGEN 26 mg/dL 9-20 H (test code = BUN) GLOMERULAR FILTRATION 111 >60 The es timated RATE (test code = glomerular filtration GFR) rate is compute d usingpatient ra ce, age (>18), sex, and serum creatinine. If anyof the needed data elements are mi ssing the Laboratory cannot compute an kevin mation of the glomerul ar filtration rate . CREATININE (test code 1.0 mg/dL 0.7-1.3 N = CREAT) CALCIUM (test code = 8.4 mg/dL 8.4-10.2 N CA) [id number] 03:07:00 Test Item Value Reference Range Interpretation Comments MAGNESIUM (test code = MAG) 2.0 mg/dL 1.6-2.3 N CBC W/AUTO [id number] 02:44:00 Test Item Value Reference Range Interpretation Comments WHITE BLOOD CELL (test code = 6.5 x10 3/uL 5.0-12.0 N WBC) RED BLOOD CELL (test code = 3.23 x10 6/uL 4.70-6.10 L RBC) HEMOGLOBIN (test code = HGB) 9.3 g/dL 14.0-18.0 L HEMATOCRIT (test code = HCT) 29.9 % 37.0-49.0 L MEAN CELL VOLUME (test code = 93 fL 80-94 N MCV) MEAN CELL HGB (test code = MCH) 28.8 pg 27-31 N MEAN CELL HGB CONCENTRATION 31.1 g/dL 33-37 L (test code = MCHC) RED CELL DISTRIBUTION WIDTH 15.2 % 11.5-15.5 N (test code = RDW) PLATELET COUNT (test code = 267 x10 3/uL 130-400 N PLT) MEAN PLATELET VOLUME (test code 10.4 fL 9.4-16.4 N = MPV) NEUTROPHIL % (test code = NT%) 80.7 % 43-65 H IMMATURE GRANULOCYTE % (test 0.5 % 0.0-2.0 N code = IG%) LYMPHOCYTE % (test code = LY%) 7.5 % 20.5-45.5 L MONOCYTE % (test code = MO%) 8.7 % 5.5-11.7 N EOSINOPHIL % (test code = EO%) 2.3 % 0.9-2.9 N BASOPHIL % (test code = BA%) 0.3 % 0.2-1.0 N NUCLEATED RBC % (test code = 0.0 % 0-1.0 N NRBC%) NEUTROPHIL # (test code = NT#) 5.26 x10 3/uL 2.2-4.8 H IMMATURE GRANULOCYTE # (test 0.03 x10 3/uL 0-0.03 N code = IG#) LYMPHOCYTE # (test code = LY#) 0.49 x10 3/uL 1.3-2.9 L MONOCYTE # (test code = MO#) 0.57 x10 3/uL 0.3-0.8 N EOSINOPHIL # (test code = EO#) 0.15 x10 3/uL 0.0-0.2 N BASOPHIL # (test code = BA#) 0.02 x10 3/uL 0.0-0.1 N - XR ABDOMEN [id number] 10:34:00 [facility] : 1985 Sex: M FAX: Vic Higuera MD [phone] Constable: St: ADM FAX: Edy Adame MD [phone] Name: TREMAYNE GOINSEME Brii [facility] : 1985 Age/S: 34/M [address] Unit #: [id number] Loc: [address] [address] Phys:Vic Amaya MD Acct: [id number] Dis Date: Status: ADM IN PHONE #: [phone] Exam Date: 1 1020 FAX #: [phone] Reason: PEG position EXAMS: CPT CODE: [id number] XR ABDOMEN 2V 71738 EXAM: Abdomen 2 views LOCATION: C3 HISTORY: PEG position COMPARISON: None available time of interpretation. FINDINGS: Multiple views of the abdomen before and after administration of contrast through the PEG tube. Pneumoperitoneum is present. Aortic stent graft is noted. PEG tube is present. Multiple dilated loops of large and small bowel are identified throughout the abdomen. Contrast administered through the PEG tube is identified within the gastric lumen. IMPRESSION: Pneumoperitoneum likely due to recent PEG tube repositioning. Contrast administered through the PEG tube is contained within the gastric lumen without evidence of leak. at 1034 Reported and signed by: Denny Mohamud MD CC: Vic Amaya; Edy Olmedo MD Technologist: María James Trnmtrd Date/Time/By: 07/03/2020 (1034) : By: LourdesHV2 PAGE 1 Signed Report FAX: Vic Higuera MD [phone] Constable: St: ADM FAX: Edy Adame MD [phone] Name: JORGE GOINS [facility] : 1985 Age/S: 34/M [address] Unit #: [id number] Loc: [address] [address] Phys: Merlin Amaya Acct: [id number] Dis Date: Status: ADM IN PHONE #: [phone] Exam Date: 07/03/2020 1020 FAX#: [phone] Reason: PEG position EXAMS: CPT CODE: [id number] XR ABDOMEN 2V 71955 (Continued) OrigPrint D/T: S: 07/03/2020 (1037) PAGE 2 Signed Report- XR CHEST 1 [id number] 07:05:00 [facility] : 1985 Sex: M FAX: Joselyn Dominguez NP [phone] Constable: St: ADM FAX: Edy Adame MD [phone] Name: JORGE GOINS [facility] : 1985 Age/S: 34/M [address] Unit #: [id number] Loc: [address] [address] Phys:Joselyn Calvo NP Acct: [id number] Dis Date: Status: ADM IN PHONE #: [phone] Exam Date: 045 FAX #: [phone] Reason: intubated EXAMS: CPT CODE: [id number] XR CHEST 1 V 94971 EXAM: Chest x-ray, 1 view Dictation location: H10 COMPARISON: Chest x-ray on 06/29/2020 INDICATION: intubated DISCUSSION: The endotracheal and upper enteric tube have been removed. The tracheostomy tube and 2 right IJ central venous catheters overlie the appropriate position. No consolidation, pleural effusion, or pneumothorax is seen. Mild cardiac silhouette enlargement is unchanged. A descending thoracic and abdominal aortic stent graft is noted. There appears to have been interval placement of a percutaneous enteric tube. A large pneumoperitoneum is identified. A portion of the percutaneous enteric tube overlies the transverse colon. IMPRESSION: Interval removal of the endotracheal and upper enteric tubesand interval placement of a tracheostomy tube and percutaneous enteric tube. There is a large pneumoperitoneum. A portion of the percutaneous enteric tube overlies the transverse colon, and colon injury should be considered. Findings were discussed by phone with the patient's nurse Betty Guy at 7:03 AM on 07/15/2020. FOR INTERNAL CODING PURPOSES ONLY RESULT CODE:[id number] at 0705 Reported and signed by: Celestino Price MD CC: Joselyn Calvo BRAZING MACHINE TENDER; Edy Olmedo MD Technologist: PERRY STONE [facility] Date/Time/By: 07/03/2020 (704) : By: LourdesBC0 PAGE 1 Signed Report FAX: Joselyn Dominguez NP [phone] Constable: St: ADM FAX: Edy Adame MD [phone] Name: JORGE GOINS Brii [facility] : 1985 Age/S: 34/M [address] Unit #: [id number] Loc: [address] [address] Phys: Joselyn Calvo NP Acct: [id number] Dis Date: Status: ADM IN PHONE #: [phone] Exam Date: 07/03/2020 0453 FAX #: [phone] Reason:intubated EXAMS: CPT CODE: [id number] XR CHEST 1 V 62042 (Continued) Orig Print D/T: S: 07/03/2020 (08) PAGE 2 Signed [id number] 05:46:00 Test Item Value Reference Range Interpretation Comments GLUBED (test code = GLUBED) 85 MG/DL 74-106 N POC ARTERIAL BLOOD [id number] 04:16:00 Test Item Value Reference Range Interpretation Comments POC ARTERIAL BLOOD GAS PH 7.46 pH units 7.35-7.45 H (test code = POCPHA) POC ARTERIAL BLOOD GAS PCO2 41.9 mmHg 35-48 N (test code = JTECEF1Z) POC TCO2 ARTERIAL (test 29.4 mmol/L 22-29 H code = POCTCO2) POC ARTERIAL BLOOD GAS PO2 104.5 mmHg 83-108 N (test code = CGVAE9Q) POC HCO3 ARTERIAL (test 29.9 mmol/L 21-28 H code = SGMKXY6W) POC BASE EXCESS (test code 5.5 mmol/L -2-3 H = POCBEA) POC O2 SATURATION (test 98.3 % 94-98 H code = POCO2S) ARTERIAL FIO2 (test code = 30 % FIO2A) PaO2/FiO2 (test code = 348.33 mm/Hg UTS1NUS6) ABG DELIVERY (test code = Adult Vent VISH) ABG VENT MODE (test code = SIMV MODEA) ABG PATIENT RESP RATE (test 12 /MIN 12-20 N code = RRPATA) ABG PRESSURE SUPPORT (test 10 cmH2O code = PSABG) ABG SITE (test code = R Radial SITEA) ALLENS TEST (test code = Positive ALLENS) SODIUM (POC) (test code = 142 mmol/L 138-146 N NA/ABG) POTASSIUM (POC) (test code 3.2 mmol/L 3.5-4.5 L = K/ABG) POC IONIZED CALCIUM (test 1.11 MMOL/L 1.15-1.33 L code = POCCA) POC GLUCOSE (test code = 93 mg/dL 74-100 N POCGLU) POC SAMPLE SOURCE (test Arterial Descript Specimen code = POCSAMPLE) Critical: Notify LIANA cloud (03-Jul-20 04:15:53) Read [id number] 03:45:00 Test Item Value Reference Range Interpretation Comments GLUBED (test code = GLUBED) 96 MG/DL 74-106 N BASIC METABOLIC [id number] 02:49:00 Test Item Value Reference Range Interpretation Comments SODIUM (test code = 140 mmol/L 137-145 N NA) POTASSIUM (test code 3.1 mmol/L 3.4-5.0 L = K) CHLORIDE (test code = 99 mmol/L 98-107 N CL) CARBON DIOXIDE (test 33 mmol/L 22-30 H code = CO2) GLUCOSE (test code = 93 mg/dL 74-106 N GLU) BLOOD UREA NITROGEN 28 mg/dL 9-20 H (test code = BUN) GLOMERULAR FILTRATION 99 >60 The es timated RATE (test code = glomerular filtration GFR) rate is compute d usingpatient ra ce, age (>18), sex, and serum creatinine. If anyof the needed data elements are mi ssing the Laboratory cannot compute an kevin mation of the glomerul ar filtration rate . CREATININE (test code 1.1 mg/dL 0.7-1.3 N = CREAT) CALCIUM (test code = 8.5 mg/dL 8.4-10.2 N CA) LIVER FUNCTION [id number] 02:49:00 Test Item Value Reference Range Interpretation Comments TOTAL PROTEIN (test 6.6 g/dL 6.3-8.2 N code = PROT) ALBUMIN (test code = 3.2 g/dL 3.5-5.0 L ALB) BILIRUBIN TOTAL 1.0 mg/dL 0.2-1.3 N "A positive bias may (test code = BILT) occur for patients taking Eltrombo pag(a bone marrow sti mulant used to treat thrombocytopeni a andaplastic ane ezequiel)." BILIRUBIN CONJUGATED 0 mg/dL 0-0.3 N "A posi tive bias may (test code = BILCON) occur f or patients taking Eltrombo pag(a bone marrow sti mulant used to treat thrombocytopeni a andaplastic ane ezequiel)." CON JUGATED BILIRUBIN IS TH E REPLACEMENT ASS AY FOR DIRECTBILIRUBIN . BILIRUBIN 0.2 mg/dL 0-1.1 N UNCONJUGATED (test code = BILUNC) SGOT/AST (test code 57 U/L 15-46 H = AST) SGPT/ALT (test code 49 U/L 0-34 H = ALT) ALKALINE PHOSPHATASE 168 U/L 38-126 H (test code = ALKP) [id number] 02:49:00 Test Item Value Reference Range Interpretation Comments MAGNESIUM (test code = MAG) 1.9 mg/dL 1.6-2.3 N BASIC METABOLIC [id number] 02:46:00 Test Item Value Reference Range Interpretation Comments SODIUM (test code = 140 mmol/L 137-145 N NA) POTASSIUM (test code 3.1 mmol/L 3.4-5.0 L = K) CHLORIDE (test code = 99 mmol/L 98-107 N CL) CARBON DIOXIDE (test 33 mmol/L 22-30 H code = CO2) GLUCOSE (test code = 93 mg/dL 74-106 N GLU) BLOOD UREA NITROGEN 28 mg/dL 9-20 H (test code = BUN) GLOMERULAR FILTRATION 99 >60 The es timated RATE (test code = glomerular filtration GFR) rate is compute d usingpatient ra ce, age (>18), sex, and serum creatinine. If anyof the needed data elements are mi ssing the Laboratory cannot compute an kevin mation of the glomerul ar filtration rate . CREATININE (test code 1.1 mg/dL 0.7-1.3 N = CREAT) CALCIUM (test code = 8.5 mg/dL 8.4-10.2 N CA) LIVER FUNCTION [id number] 02:46:00 Test Item Value Reference Range Interpretation Comments TOTAL PROTEIN (test 6.6 g/dL 6.3-8.2 N code = PROT) ALBUMIN (test code = 3.2 g/dL 3.5-5.0 L ALB) BILIRUBIN TOTAL 1.0 mg/dL 0.2-1.3 N "A positive bias may (test code = BILT) occur for patients taking Eltrombo pag(a bone marrow sti mulant used to treat thrombocytopeni a andaplastic ane ezequiel)." BILIRUBIN CONJUGATED 0 mg/dL 0-0.3 N "A posi tive bias may (test code = BILCON) occur f or patients taking Eltrombo pag(a bone marrow sti mulant used to treat thrombocytopeni a andaplastic ane ezequiel)." CON JUGATED BILIRUBIN IS TH E REPLACEMENT ASS AY FOR DIRECTBILIRUBIN . BILIRUBIN 0.2 mg/dL 0-1.1 N UNCONJUGATED (test code = BILUNC) SGOT/AST (test code 57 U/L 15-46 H = AST) SGPT/ALT (test code U/L 0-34 = ALT) ALKALINE PHOSPHATASE 168 U/L 38-126 H (test code = ALKP) [id number] 02:46:00 Test Item Value Reference Range Interpretation Comments MAGNESIUM (test code = MAG) mg/dL 1.6-2.3 CBC W/AUTO [id number] 02:27:00 Test Item Value Reference Range Interpretation Comments WHITE BLOOD CELL (test code = 8.6 x10 3/uL 5.0-12.0 N WBC) RED BLOOD CELL (test code = 3.29 x10 6/uL 4.70-6.10 L RBC) HEMOGLOBIN (test code = HGB) 9.4 g/dL 14.0-18.0 L HEMATOCRIT (test code = HCT) 30.5 % 37.0-49.0 L MEAN CELL VOLUME (test code = 93 fL 80-94 N MCV) MEAN CELL HGB (test code = MCH) 28.6 pg 27-31 N MEAN CELL HGB CONCENTRATION 30.8 g/dL 33-37 L (test code = MCHC) RED CELL DISTRIBUTION WIDTH 15.3 % 11.5-15.5 N (test code = RDW) PLATELET COUNT (test code = 252 x10 3/uL 130-400 N PLT) MEAN PLATELET VOLUME (test code 10.8 fL 9.4-16.4 N = MPV) NEUTROPHIL % (test code = NT%) 83.0 % 43-65 H IMMATURE GRANULOCYTE % (test 0.5 % 0.0-2.0 N code = IG%) LYMPHOCYTE % (test code = LY%) 6.2 % 20.5-45.5 L MONOCYTE % (test code = MO%) 7.9 % 5.5-11.7 N EOSINOPHIL % (test code = EO%) 2.2 % 0.9-2.9 N BASOPHIL % (test code = BA%) 0.2 % 0.2-1.0 N NUCLEATED RBC % (test code = 0.0 % 0-1.0 N NRBC%) NEUTROPHIL # (test code = NT#) 7.10 x10 3/uL 2.2-4.8 H IMMATURE GRANULOCYTE # (test 0.04 x10 3/uL 0-0.03 H code = IG#) LYMPHOCYTE # (test code = LY#) 0.53 x10 3/uL 1.3-2.9 L MONOCYTE # (test code = MO#) 0.68 x10 3/uL 0.3-0.8 N EOSINOPHIL # (test code = EO#) 0.19 x10 3/uL 0.0-0.2 N BASOPHIL # (test code = BA#) 0.02 x10 3/uL 0.0-0.1 N - DUP VEIN [id number] 15:06:00 [facility] 1985 Sex: M FAX: Giancarlo Izaguirre MD R2 Constable: St: ADM FAX: Edy Adame MD [phone] Name: JORGE GOINS [facility] : 1985 Age/S: 34/M [address] Unit #: [id number] Loc: [address] [address] Phys: Giancarlo Izaguirre MD R2 Acct: [id number] Dis Date: Status: ADM IN PHONE #: [phone] Exam Date: 07/02/2020 1311FAX #: [phone] Reason: BLE DVT, SHUNT ON ECHO, BILATERAL STROKES ON MR EXAMS: CPT CODE: [id number] DUP VEIN DERREK [id number] EXAM: Ultrasound bilateral lower extremity venous Doppler LOCATION: C3 HISTORY:Pain. TECHNIQUE: Grayscale real-time B-mode imaging with color flow and spectral flow Doppler analysis was performed of the bilateral lower extremities. COMPARISON: None available time of interpretation. FINDINGS: There is normal compressibility with no evidence of thrombus in the visualized venous structures of the bilateral lower extremities. IMPRESSION: No DVT in the visualized venous structures of the bilateral lower extremities. at 1506 Reported and signed by: Denny Mohamud MD CC: Giancarlo Izaguirre MD; Edy Olmedo MD Technologist: GENA FUNG Trnscrd Date/Time/By: 07/02/2020 (1506) : By: LourdesHV2 PAGE 1 Signed Report FAX: Giancarlo King MD R2 Constable: St: [facility] FAX: Edy Adame MD [phone] Name: JORGE GOINS [facility] : 1985 Age/S: 34/M [address] Unit #: [id number] Loc: [address] [address] Phys: Giancarlo Izaguirre MD R2 Acct: [id number] Dis Date: Status: ADM IN PHONE #: [phone] Exam Date: 07/02/2020 1311 FAX #: [phone] Reason: BLE DVT, SHUNT ON ECHO, BILATERAL STROKES ON MR EXAMS: CPT CODE: [id number] DUP VEIN DERREK [address] (Continued) Orig Print D/T: S: 07/02/2020 (1509) PAGE 2 Signed [id number] 10:39:00 Test Item Value Reference Range Interpretation Comments POTASSIUM (test code = K) 3.6 mmol/L 3.4-5.0 N [id number] 09:40:00 Test Item Value Reference Range Interpretation Comments GLUBED (test code = GLUBED) 97 MG/DL 74-106 N POC ARTERIAL BLOOD [id number] 04:39:00 Test Item Value Reference Range Interpretation Comments POC ARTERIAL BLOOD GAS PH 7.45 pH units 7.35-7.45 N (test code = POCPHA) POC ARTERIAL BLOOD GAS PCO2 41.9 mmHg 35-48 N (test code = LEVMJR2C) POC TCO2 ARTERIAL (test 29.0 mmol/L 22-29 N code = POCTCO2) POC ARTERIAL BLOOD GAS PO2 110.1 mmHg 83-108 H (test code = WMDIA9X) POC HCO3 ARTERIAL (test 29.4 mmol/L 21-28 H code = SQUFCB7O) POC BASE EXCESS (test code 5.0 mmol/L -2-3 H = POCBEA) POC O2 SATURATION (test 98.5 % 94-98 H code = POCO2S) ARTERIAL FIO2 (test code = 30 % FIO2A) PaO2/FiO2 (test code = 367.00 mm/Hg [id number]) ABG DELIVERY (test code = Adult Vent VISH) ABG VENT MODE (test code = SIMV MODEA) ABG PATIENT RESP RATE (test 12 /MIN 12-20 N code = RRPATA) ABG PRESSURE SUPPORT (test 10 cmH2O code = PSABG) ABG SITE (test code = R Radial SITEA) ALLENS TEST (test code = Positive ALLENS) SODIUM (POC) (test code = 141 mmol/L 138-146 N NA/ABG) POTASSIUM (POC) (test code 3.3 mmol/L 3.5-4.5 L = K/ABG) POC IONIZED CALCIUM (test 1.13 MMOL/L 1.15-1.33 L code = POCCA) POC GLUCOSE (test code = 83 mg/dL 74-100 N POCGLU) POC SAMPLE SOURCE (test Arterial Descript Specimen code = POCSAMPLE) Critical: Notify LIANA durbin (02-Jul-20 04:38:54) Readback [facility] METABOLIC [id number] 03:09:00 Test Item Value Reference Range Interpretation Comments SODIUM (test code = 140 mmol/L 137-145 N NA) POTASSIUM (test code 3.2 mmol/L 3.4-5.0 L = K) CHLORIDE (test code = 99 mmol/L 98-107 N CL) CARBON DIOXIDE (test 33 mmol/L 22-30 H code = CO2) GLUCOSE (test code = 81 mg/dL 74-106 N GLU) BLOOD UREA NITROGEN 28 mg/dL 9-20 H (test code = BUN) GLOMERULAR FILTRATION 90 >60 The es timated RATE (test code = glomerular filtration GFR) rate is compute d usingpatient ra ce, age (>18), sex, and serum creatinine. If anyof the needed data elements are mi ssing the Laboratory cannot compute an kevin mation of the glomerul ar filtration rate . CREATININE (test code 1.2 mg/dL 0.7-1.3 N = CREAT) CALCIUM (test code = 8.6 mg/dL 8.4-10.2 N CA) [id number] 03:09:00 Test Item Value Reference Range Interpretation Comments MAGNESIUM (test code = MAG) 1.8 mg/dL 1.6-2.3 N CBC W/AUTO [id number] 02:44:00 Test Item Value Reference Range Interpretation Comments WHITE BLOOD CELL (test code = 13.0 x10 3/uL 5.0-12.0 H WBC) RED BLOOD CELL (test code = 3.27 x10 6/uL 4.70-6.10 L RBC) HEMOGLOBIN (test code = HGB) 9.4 g/dL 14.0-18.0 L HEMATOCRIT (test code = HCT) 30.3 % 37.0-49.0 L MEAN CELL VOLUME (test code = 93 fL 80-94 N MCV) MEAN CELL HGB (test code = 28.7 pg 27-31 N MCH) MEAN CELL HGB CONCENTRATION 31.0 g/dL 33-37 L (test code = MCHC) RED CELL DISTRIBUTION WIDTH 15.7 % 11.5-15.5 H (test code = RDW) PLATELET COUNT (test code = 244 x10 3/uL 130-400 N PLT) MEAN PLATELET VOLUME (test 10.4 fL 9.4-16.4 N code = MPV) NEUTROPHIL % (test code = NT%) 88.9 % 43-65 H IMMATURE GRANULOCYTE % (test 0.5 % 0.0-2.0 N code = IG%) LYMPHOCYTE % (test code = LY%) 3.7 % 20.5-45.5 L MONOCYTE % (test code = MO%) 5.5 % 5.5-11.7 N EOSINOPHIL % (test code = EO%) 1.2 % 0.9-2.9 N BASOPHIL % (test code = BA%) 0.2 % 0.2-1.0 N NUCLEATED RBC % (test code = 0.0 % 0-1.0 N NRBC%) NEUTROPHIL # (test code = NT#) 11.54 x10 3/uL 2.2-4.8 H IMMATURE GRANULOCYTE # (test 0.06 x10 3/uL 0-0.03 H code = IG#) LYMPHOCYTE # (test code = LY#) 0.48 x10 3/uL 1.3-2.9 L MONOCYTE # (test code = MO#) 0.71 x10 3/uL 0.3-0.8 N EOSINOPHIL # (test code = EO#) 0.15 x10 3/uL 0.0-0.2 N BASOPHIL # (test code = BA#) 0.02 x10 3/uL 0.0-0.1 N [id number] 11:58:00 Test Item Value Reference Range Interpretation Comments GLUBED (test code = GLUBED) 86 MG/DL 74-106 N [id number] 08:48:00 Test Item Value Reference Range Interpretation Comments GLUBED (test code = GLUBED) 87 MG/DL 74-106 N POC ARTERIAL BLOOD [id number] 04:11:00 Test Item Value Reference Range Interpretation Comments POC ARTERIAL BLOOD GAS PH 7.48 pH units 7.35-7.45 H (test code = POCPHA) POC ARTERIAL BLOOD GAS PCO2 37.1 mmHg 35-48 N (test code = [id number]) POC TCO2 ARTERIAL (test 27.1 mmol/L 22-29 N code = POCTCO2) POC ARTERIAL BLOOD GAS PO2 109.3 mmHg 83-108 H (test code = AAGIO7P) POC HCO3 ARTERIAL (test 27.5 mmol/L 21-28 N code = [id number]) POC BASE EXCESS (test code 3.8 mmol/L -2-3 H = POCBEA) POC O2 SATURATION (test 98.6 % 94-98 H code = POCO2S) ARTERIAL FIO2 (test code = 30 % FIO2A) PaO2/FiO2 (test code = 364.33 mm/Hg [id number]) ABG DELIVERY (test code = Adult Vent VISH) ABG VENT MODE (test code = SIMV(VC)+PS MODEA) ABG PATIENT RESP RATE (test 12 /MIN 12-20 N code = RRPATA) ABG SITE (test code = L Radial SITEA) ALLENS TEST (test code = N/A ALLENS) SODIUM (POC) (test code = 143 mmol/L 138-146 N NA/ABG) POTASSIUM (POC) (test code 3.6 mmol/L 3.5-4.5 N = K/ABG) POC IONIZED CALCIUM (test 1.13 MMOL/L 1.15-1.33 L code = POCCA) POC GLUCOSE (test code = 88 mg/dL 74-100 N POCGLU) POC SAMPLE SOURCE (test Arterial Descript Specimen code = POCSAMPLE) Critical: Notify LIANA burleson (01-Jul-20 04:10:48) Read backokBASIC METABOLIC [id number] 04:10:00 Test Item Value Reference Range Interpretation Comments SODIUM (test code = 141 mmol/L 137-145 N NA) POTASSIUM (test code 3.8 mmol/L 3.4-5.0 N = K) CHLORIDE (test code = 104 mmol/L 98-107 N CL) CARBON DIOXIDE (test 31 mmol/L 22-30 H code = CO2) GLUCOSE (test code = 84 mg/dL 74-106 N GLU) BLOOD UREA NITROGEN 29 mg/dL 9-20 H (test code = BUN) GLOMERULAR FILTRATION 90 >60 The es timated RATE (test code = glomerular filtration GFR) rate is compute d usingpatient ra ce, age (>18), sex, and serum creatinine. If anyof the needed data elements are mi ssing the Laboratory cannot compute an kevin mation of the glomerul ar filtration rate . CREATININE (test code 1.2 mg/dL 0.7-1.3 N = CREAT) CALCIUM (test code = 8.7 mg/dL 8.4-10.2 N CA) CBC W/AUTO [id number] 03:56:00 Test Item Value Reference Range Interpretation Comments WHITE BLOOD CELL (test code = 8.4 x10 3/uL 5.0-12.0 N WBC) RED BLOOD CELL (test code = 3.30 x10 6/uL 4.70-6.10 L RBC) HEMOGLOBIN (test code = HGB) 9.4 g/dL 14.0-18.0 L HEMATOCRIT (test code = HCT) 30.7 % 37.0-49.0 L MEAN CELL VOLUME (test code = 93 fL 80-94 N MCV) MEAN CELL HGB (test code = MCH) 28.5 pg 27-31 N MEAN CELL HGB CONCENTRATION 30.6 g/dL 33-37 L (test code = MCHC) RED CELL DISTRIBUTION WIDTH 16.0 % 11.5-15.5 H (test code = RDW) PLATELET COUNT (test code = 256 x10 3/uL 130-400 N PLT) MEAN PLATELET VOLUME (test code 11.1 fL 9.4-16.4 N = MPV) NEUTROPHIL % (test code = NT%) 86.2 % 43-65 H IMMATURE GRANULOCYTE % (test 0.4 % 0.0-2.0 N code = IG%) LYMPHOCYTE % (test code = LY%) 4.4 % 20.5-45.5 L MONOCYTE % (test code = MO%) 7.1 % 5.5-11.7 N EOSINOPHIL % (test code = EO%) 1.7 % 0.9-2.9 N BASOPHIL % (test code = BA%) 0.2 % 0.2-1.0 N NUCLEATED RBC % (test code = 0.0 % 0-1.0 N NRBC%) NEUTROPHIL # (test code = NT#) 7.28 x10 3/uL 2.2-4.8 H IMMATURE GRANULOCYTE # (test 0.03 x10 3/uL 0-0.03 N code = IG#) LYMPHOCYTE # (test code = LY#) 0.37 x10 3/uL 1.3-2.9 L MONOCYTE # (test code = MO#) 0.60 x10 3/uL 0.3-0.8 N EOSINOPHIL # (test code = EO#) 0.14 x10 3/uL 0.0-0.2 N BASOPHIL # (test code = BA#) 0.02 x10 3/uL 0.0-0.1 N [id number] 22:07:00 Test Item Value Reference Range Interpretation Comments GLUBED (test code = GLUBED) 90 MG/DL 74-106 N [id number] 21:55:00 Test Item Value Reference Range Interpretation Comments GLUBED (test code = GLUBED) 84 MG/DL 74-106 N COVID 19 Asymptomatic IH [id number] 19:01:00 Test Item Value Reference Range Interpretation Comments COVID 19 Asymptomatic IH AG (test NEGATIVE Negative code = COVNONPUIAG) [id number] 17:51:00 Test Item Value Reference Range Interpretation Comments GLUBED (test code = GLUBED) 88 MG/DL 74-106 N BASIC METABOLIC [id number] 04:44:00 Test Item Value Reference Range Interpretation Comments SODIUM (test code = 141 mmol/L 137-145 N NA) POTASSIUM (test code 3.8 mmol/L 3.4-5.0 N = K) CHLORIDE (test code = 106 mmol/L 98-107 N CL) CARBON DIOXIDE (test 28 mmol/L 22-30 N code = CO2) GLUCOSE (test code = 88 mg/dL 74-106 N GLU) BLOOD UREA NITROGEN 31 mg/dL 9-20 H (test code = BUN) GLOMERULAR FILTRATION 90 >60 The es timated RATE (test code = glomerular filtration GFR) rate is compute d usingpatient ra ce, age (>18), sex, and serum creatinine. If anyof the needed data elements are mi ssing the Laboratory cannot compute an kevin mation of the glomerul ar filtration rate . CREATININE (test code 1.2 mg/dL 0.7-1.3 N = CREAT) CALCIUM (test code = 8.3 mg/dL 8.4-10.2 L CA) CBC W/AUTO [id number] 04:29:00 Test Item Value Reference Range Interpretation Comments WHITE BLOOD CELL (test code = 5.8 x10 3/uL 5.0-12.0 N WBC) RED BLOOD CELL (test code = 3.24 x10 6/uL 4.70-6.10 L RBC) HEMOGLOBIN (test code = HGB) 9.3 g/dL 14.0-18.0 L HEMATOCRIT (test code = HCT) 30.1 % 37.0-49.0 L MEAN CELL VOLUME (test code = 93 fL 80-94 N MCV) MEAN CELL HGB (test code = MCH) 28.7 pg 27-31 N MEAN CELL HGB CONCENTRATION 30.9 g/dL 33-37 L (test code = MCHC) RED CELL DISTRIBUTION WIDTH 16.5 % 11.5-15.5 H (test code = RDW) PLATELET COUNT (test code = 241 x10 3/uL 130-400 N PLT) MEAN PLATELET VOLUME (test code 11.1 fL 9.4-16.4 N = MPV) NEUTROPHIL % (test code = NT%) 78.2 % 43-65 H IMMATURE GRANULOCYTE % (test 0.7 % 0.0-2.0 N code = IG%) LYMPHOCYTE % (test code = LY%) 9.8 % 20.5-45.5 L MONOCYTE % (test code = MO%) 9.1 % 5.5-11.7 N EOSINOPHIL % (test code = EO%) 1.9 % 0.9-2.9 N BASOPHIL % (test code = BA%) 0.3 % 0.2-1.0 N NUCLEATED RBC % (test code = 0.0 % 0-1.0 N NRBC%) NEUTROPHIL # (test code = NT#) 4.53 x10 3/uL 2.2-4.8 N IMMATURE GRANULOCYTE # (test 0.04 x10 3/uL 0-0.03 H code = IG#) LYMPHOCYTE # (test code = LY#) 0.57 x10 3/uL 1.3-2.9 L MONOCYTE # (test code = MO#) 0.53 x10 3/uL 0.3-0.8 N EOSINOPHIL # (test code = EO#) 0.11 x10 3/uL 0.0-0.2 N BASOPHIL # (test code = BA#) 0.02 x10 3/uL 0.0-0.1 N POC ARTERIAL BLOOD [id number] 00:41:00 Test Item Value Reference Range Interpretation Comments POC ARTERIAL BLOOD GAS PH 7.46 pH units 7.35-7.45 H (test code = POCPHA) POC ARTERIAL BLOOD GAS PCO2 34.9 mmHg 35-48 L (test code = YTVKER0H) POC TCO2 ARTERIAL (test 24.5 mmol/L 22-29 N code = POCTCO2) POC ARTERIAL BLOOD GAS PO2 131.6 mmHg 83-108 H (test code = ASSUR3U) POC HCO3 ARTERIAL (test 24.7 mmol/L 21-28 N code = IJKKQH4C) POC BASE EXCESS (test code 1.1 mmol/L -2-3 N = POCBEA) POC O2 SATURATION (test 99.2 % 94-98 H code = POCO2S) ARTERIAL FIO2 (test code = 30 % FIO2A) PaO2/FiO2 (test code = 438.66 mm/Hg [id number]) ABG DELIVERY (test code = Adult Vent VISH) ABG VENT MODE (test code = SIMV MODEA) ABG PATIENT RESP RATE (test 12 /MIN 12-20 N code = RRPATA) ABG PRESSURE SUPPORT (test 10 cmH2O code = PSABG) ABG SITE (test code = R Radial SITEA) ALLENS TEST (test code = N/A ALLENS) SODIUM (POC) (test code = 143 mmol/L 138-146 N NA/ABG) POTASSIUM (POC) (test code 3.8 mmol/L 3.5-4.5 N = K/ABG) POC IONIZED CALCIUM (test 1.15 MMOL/L 1.15-1.33 N code = POCCA) POC GLUCOSE (test code = 95 mg/dL 74-100 N POCGLU) POC SAMPLE SOURCE (test Arterial Descript Specimen code = POCSAMPLE) [id number] 18:11:00 Test Item Value Reference Range Interpretation Comments GLUBED (test code = GLUBED) 104 MG/DL 74-106 N [id number] 08:48:00 Test Item Value Reference Range Interpretation Comments MAGNESIUM (test code = MAG) 2.0 mg/dL 1.6-2.3 N - XR CHEST 1 [id number] 08:17:00 [facility] 1985 Sex: M FAX: Tona Russo NP [phone] Constable: St: ADM FAX: Edy Adame MD [phone] Name: JORGE GOINS [facility] : 1985 Age/S: 34/M [address] Unit #: [id number] Loc: C.ICC2 [place] [address] Phys: Tona Nicholas NP Acct: [id number] Dis Date: Status: ADM IN PHONE #: [phone] Exam Date: 06/29/2020809 FAX #: [phone] Reason: f/u EXAMS: CPT CODE: [id number] XR CHEST 1 V 83786 EXAM: CHEST ONE VIEW INDICATION: Intubated LOCATION: B2 COMPARISON: June 28, 2020 TECHNIQUE: AP view of the chest FINDINGS: The endotracheal tube and enteric tube are unchanged. The heart size is enlarged. There is an aortic stent seen in place. There are diffuse congestive changes bilaterally. No pneumothorax or pleural effusion is identified. The osseous structures are normal. IMPRESSION: Cardiomegaly with mild congestive changes bilaterally. at 0817 Reported and signed by: Kim Morrow MD CC: Tona Nicholas BRAZING MACHINE TENDER; Edy Olmedo MD Technologist: TYRA CAT RT (R) Trnmtrd Date/Time/By: 06/29/2020 (0817) : By: [email or web address] PAGE 1 Signed Report FAX: Tona Russo NP [phone] Constable: St: ADM FAX: Edy Adame MD [phone] Name: JORGE GOINS [facility] : 1985 Age/S: 34/M [address] Unit #: [id number] Loc: [address] [address] Phys: Tona Nicholas NP Acct: [id number] Dis Date: Status: ADM IN PHONE #: [phone] Exam Date: 06/29/2020 0810 FAX #: [phone] Reason: f/u EXAMS: CPT CODE: [id number] XR CHEST 1 V 46776 (Continued) Orig Print D/T: S: 06/30/2020 (0741) PAGE 2 Signed ReportPOC ARTERIAL BLOOD [id number] 05:30:00 Test Item Value Reference Range Interpretation Comments POC ARTERIAL BLOOD GAS PH 7.45 pH units 7.35-7.45 N (test code = POCPHA) POC ARTERIAL BLOOD GAS PCO2 35.8 mmHg 35-48 N (test code = [id number]) POC TCO2 ARTERIAL (test 24.4 mmol/L 22-29 N code = POCTCO2) POC ARTERIAL BLOOD GAS PO2 116.5 mmHg 83-108 H (test code = KCQKI7Z) POC HCO3 ARTERIAL (test 24.6 mmol/L 21-28 N code = QLIXII0Z) POC BASE EXCESS (test code 0.7 mmol/L -2-3 N = POCBEA) POC O2 SATURATION (test 98.8 % 94-98 H code = POCO2S) ARTERIAL FIO2 (test code = 30 % FIO2A) PaO2/FiO2 (test code = 388.33 mm/Hg [id number]) ABG DELIVERY (test code = Adult Vent VISH) ABG VENT MODE (test code = SIMV MODEA) ABG PATIENT RESP RATE (test 12 /MIN 12-20 N code = RRPATA) ABG PRESSURE SUPPORT (test 10 cmH2O code = PSABG) ABG SITE (test code = R Radial SITEA) ALLENS TEST (test code = Positive ALLENS) SODIUM (POC) (test code = 143 mmol/L 138-146 N NA/ABG) POTASSIUM (POC) (test code 3.9 mmol/L 3.5-4.5 N = K/ABG) POC IONIZED CALCIUM (test 1.17 MMOL/L 1.15-1.33 N code = POCCA) POC GLUCOSE (test code = 107 mg/dL 74-100 H POCGLU) POC SAMPLE SOURCE (test Arterial Descript Specimen code = POCSAMPLE) BASIC METABOLIC [id number] 03:41:00 Test Item Value Reference Range Interpretation Comments SODIUM (test code = 142 mmol/L 137-145 N NA) POTASSIUM (test code 4.0 mmol/L 3.4-5.0 N = K) CHLORIDE (test code = 109 mmol/L 98-107 H CL) CARBON DIOXIDE (test 25 mmol/L 22-30 N code = CO2) GLUCOSE (test code = 94 mg/dL 74-106 N GLU) BLOOD UREA NITROGEN 32 mg/dL 9-20 H (test code = BUN) GLOMERULAR FILTRATION 99 >60 The es timated RATE (test code = glomerular filtration GFR) rate is compute d usingpatient ra ce, age (>18), sex, and serum creatinine. If anyof the needed data elements are mi ssing the Laboratory cannot compute an kevin mation of the glomerul ar filtration rate . CREATININE (test code 1.1 mg/dL 0.7-1.3 N = CREAT) CALCIUM (test code = 8.0 mg/dL 8.4-10.2 L CA) [id number] 03:41:00 Test Item Value Reference Range Interpretation Comments MAGNESIUM (test code = MAG) 1.8 mg/dL 1.6-2.3 N CBC W/AUTO [id number] 03:12:00 Test Item Value Reference Range Interpretation Comments WHITE BLOOD CELL (test code = 5.0 x10 3/uL 5.0-12.0 N WBC) RED BLOOD CELL (test code = 3.23 x10 6/uL 4.70-6.10 L RBC) HEMOGLOBIN (test code = HGB) 9.3 g/dL 14.0-18.0 L HEMATOCRIT (test code = HCT) 29.8 % 37.0-49.0 L MEAN CELL VOLUME (test code = 92 fL 80-94 N MCV) MEAN CELL HGB (test code = MCH) 28.8 pg 27-31 N MEAN CELL HGB CONCENTRATION 31.2 g/dL 33-37 L (test code = MCHC) RED CELL DISTRIBUTION WIDTH 16.7 % 11.5-15.5 H (test code = RDW) PLATELET COUNT (test code = 229 x10 3/uL 130-400 N PLT) MEAN PLATELET VOLUME (test code 11.0 fL 9.4-16.4 N = MPV) NEUTROPHIL % (test code = NT%) 75.8 % 43-65 H IMMATURE GRANULOCYTE % (test 1.0 % 0.0-2.0 N code = IG%) LYMPHOCYTE % (test code = LY%) 11.4 % 20.5-45.5 L MONOCYTE % (test code = MO%) 9.4 % 5.5-11.7 N EOSINOPHIL % (test code = EO%) 2.2 % 0.9-2.9 N BASOPHIL % (test code = BA%) 0.2 % 0.2-1.0 N NUCLEATED RBC % (test code = 0.0 % 0-1.0 N NRBC%) NEUTROPHIL # (test code = NT#) 3.80 x10 3/uL 2.2-4.8 N IMMATURE GRANULOCYTE # (test 0.05 x10 3/uL 0-0.03 H code = IG#) LYMPHOCYTE # (test code = LY#) 0.57 x10 3/uL 1.3-2.9 L MONOCYTE # (test code = MO#) 0.47 x10 3/uL 0.3-0.8 N EOSINOPHIL # (test code = EO#) 0.11 x10 3/uL 0.0-0.2 N BASOPHIL # (test code = BA#) 0.01 x10 3/uL 0.0-0.1 N - CT HEAD/BRAIN W/O [id number] 02:58:00 [facility] : 1985 Sex: M FAX: Edy Adame MD [phone] Constable: St: ADM FAX: Pineda Andersen Name: TREMAYNE GOINSEME Brii [facility] : 1985 Age/S: 34/M [address] Unit: [id number] Loc: [address] [address] Phys: Stevie Andersen MD R2 Acct: [id number] Dis Date: Status: ADM IN PHONE #: [phone] Exam Date: 06/29/2020219 FAX #: [phone] Reason: AMS, ISCHEMIC STROKE, UNABLE TO WEAN VENT. INTE EXAMS: CPT CODE: [id number] CT HEAD/BRAIN W/O CONT 81086 EXAM: - CT HEAD/BRAIN W/O CONT LOCATION: H57 HISTORY: 34 years-year old Male with AMS, ISCHEMIC STROKE, UNABLE TO WEAN VENT. INTERVAL MOSLEY TECHNIQUE: Computerized tomography images from the skull base to the vertex were obtained. Coronal and sagittal reformatted images are provided. This exam was performed according to our departmental dose-optimization program, which includes automated exposure control, adjustment of the mA and/or kV according to patient size and/or use of iterative reconstruction technique COMPARISON: 09/23/2013, 11/19/2019, 06/26/2020, 06/24/2020 FINDINGS: Brain: Tiny acute infarcts in the left frontal and occipital lobes are better demonstrated on prior MRI. No parenchymal hemorrhage is seen. Scattered periventricular and subcortical hypodensities are nonspecific but significantly greater than expected for age. There is no evidence of an acute territorial infarct. There is no mass effect, midline shift, or parenchymal edema. Ventricles/Extra-axial spaces: There is no acute intracranial hemorrhage or extra-axial fluid collection. The ventricles are unremarkable. No basal cistern effacement. Bones: There is no evidence of acute displaced calvarial fracture. Sinuses: The visualized paranasal sinuses and mastoid air cells are clear. Soft Tissues: Unremarkable. Other: None. IMPRESSION: 1. Tiny acute infarcts in the left frontal and occipital lobes are PAGE 1 Signed Report (CONTINUED) FAX: Edy Adame MD [phone] Constable: St:ADM FAX: Pineda Andersen Name: JORGE GOINS [facility] : 1985 Age/S: 34/M [address] Unit: [id number] Loc: C[facility] [place] [address] Phys: Stevie Andersen MD R2 Acct: [id number] Dis Date: Status: ADM IN PHONE #: [phone] Exam Date: 06/29/2020219 FAX #: [phone] Reason: AMS, ISCHEMIC STROKE, UNABLE TO WEAN VENT. INTE EXAMS: CPT CODE: [id number] CT HEAD/BRAIN W/O CONT 83903 (Continued) better demonstrated on prior MRI. No parenchymal hemorrhage is seen. 2. Prominent scattered periventricular and subcortical hypodensities are redemonstrated. These findings are nonspecific but significantly greater than expected for age and appear new since October 2019. Recommend follow up MRI brain with contrast. at 0258 Reported and signed by: Bhavana [place] MD CC: Edy Olmedo MD; Stevie Santo MD Technologist: Farheen Yeager Dt/Tm: 06/29/2020 (0258) [email or web address] Orig Print D/T: S: 06/29/2020 (5301 PAGE 2 Signed Report- CT HEAD/BRAIN W/O [id number] 02:58:00 [facility] : 1985 Sex: M FAX: Edy Adame MD [phone] Constable: St: [facility] FAX: Pineda Andersen Name: TREMAYNE GOINSEME Brii [facility] : 1985 Age/S: 34/M [address] Unit: [id number] Loc: [address] [address] Phys: Stevie Andersen MD R2 Acct: [id number] Dis Date: Status: ADM IN PHONE #: [phone] Exam Date: 06/29/2020219 FAX #: [phone] Reason: AMS, ISCHEMIC STROKE, UNABLE TO WEAN VENT. INTE EXAMS: CPT CODE: [id number] CT HEAD/BRAIN W/O CONT 72765 EXAM: - CT HEAD/BRAIN W/O CONT LOCATION: H57 HISTORY: 34 years-year old Male with AMS, ISCHEMIC STROKE, UNABLE TO WEAN VENT. INTERVAL MOSLEY TECHNIQUE: Computerized tomography images from the skull base to the vertex were obtained. Coronal and sagittal reformatted images are provided. This exam was performed according to our departmental dose-optimization program, which includes automated exposure control, adjustment of the mA and/or kV according to patient size and/or use of iterative reconstruction technique COMPARISON: 09/23/2013, 11/19/2019, 06/26/2020, 06/24/2020 FINDINGS: Brain: Tiny acute infarcts in the left frontal and occipital lobes are better demonstrated on prior MRI. No parenchymal hemorrhage is seen. Scattered periventricular and subcortical hypodensities are nonspecific but significantly greater than expected for age. There is no evidence of anacute territorial infarct. There is no mass effect, midline shift, or parenchymal edema. Ventricles/Extra-axial spaces: There is no acute intracranial hemorrhage or extra-axial fluid collection. The ventricles are unremarkable. No basal cistern effacement. Bones: There is no evidence of acute displaced calvarial fracture. Sinuses: The visualized paranasal sinuses and mastoid air cells are clear. SoftTissues: Unremarkable. Other: None. IMPRESSION: 1. Tiny acute infarcts in the left frontal and occipital lobes are PAGE 1 Signed Report (CONTINUED) FAX: Edy Adame MD [phone] Constable: St: ADM FAX: Pineda Andersen Name: ETHANKENJORGE [facility] : 1985 Age/S: 34/M [address] Unit: [id number] Loc: C.ICC2 [place] [address] Phys: Stevie Andersen MD R2 Acct: [id number] Dis Date: Status: ADM IN PHONE #: [phone] Exam Date: 06/29/2020219 FAX #: [phone] Reason: AMS, ISCHEMIC STROKE, UNABLE TO WEAN VENT. INTE EXAMS: CPT CODE: [id number] CT HEAD/BRAIN W/O CONT 90083 (Continued) better demonstrated on prior MRI. No parenchymal hemorrhage is seen. 2. Prominent scattered periventricular and subcortical hypodensities are redemonstrated. These findings are nonspecific but significantly greater than expected for age and appear new since October 2019. Recommend follow up MRI brain with contrast. at 0258 Reported and signed by: Bhavana [place] MD CC: Edy Olmedo MD; Stevie Santo MD Technologist: Geovanna Yeager Dt/Tm: 06/29/2020 (0258) [email or web address] Orig Print D/T: S: 06/29/2020 (7729 PAGE 2 SignedReport- CT HEAD/BRAIN W/O [id number] 02:58:00 [facility] : 1985 Sex: M FAX: Edy Adame MD [phone] Constable: St: ADM FAX: Pineda Andersen Name: JORGE GOINS : 1985 Age/S: 34/M [address] Unit: [id number] [facility] [place] [address] Phys: Stevie Andersen MD R2 Acct: [id number] Dis Date: Status: ADM IN PHONE #: [phone] Exam Date: 06/29/2020219 FAX #: [phone] Reason: AMS, ISCHEMIC STROKE, UNABLE TO WEAN VENT. INTE EXAMS: CPT CODE: [id number] CT HEAD/BRAIN W/O CONT 73153 EXAM: - CT HEAD/BRAIN W/O CONT LOCATION: H57 HISTORY: 34 years-year old Male with AMS, ISCHEMIC STROKE, UNABLE TO WEAN VENT. INTERVAL MOSLEY TECHNIQUE: Computerized tomography images from the skull base to the vertex were obtained. Coronal and sagittal reformatted images are provided. This exam was performed according to our departmental dose-optimization program, which includes automated exposure control, adjustment of the mA and/or kV according to patient size and/or use of iterative reconstruction technique COMPARISON: 09/23/2013, 11/19/2019, 06/26/2020, 06/24/2020 FINDINGS: Brain: Tiny acute infarcts in the left frontal and occipital lobes are better demonstrated on prior MRI. No parenchymal hemorrhage is seen. Scattered periventricular and subcortical hypodensities are nonspecific but significantly greater than expected for age. There is no evidence of an acute territorial infarct. There is no mass effect, midline shift, or parenchymal edema. Ventricles/Extra-axial spaces: There is no acute intracranial hemorrhage or extra-axial fluid collection. The ventricles are unremarkable. No basal cistern effacement. Bones: There is no evidence of acute displaced calvarial fracture. Sinuses: The visualized paranasal sinuses and mastoid air cells are clear. Soft Tissues: Unremarkable. Other: None. IMPRESSION: 1. Tiny acute infarcts in the left frontal and occipital lobes are PAGE 1 Signed Report (CONTINUED) FAX: Edy Adame MD [phone] Constable: St: ADM FAX: Pineda Andersen Name: JORGE GOINS [facility] : 1985 Age/S: 34/M [address] Unit: [id number] Loc: C.[address] [address] Phys: Stevie Andersen MD R2 Acct: [id number] Dis Date: Status: ADM IN PHONE #: [phone] Exam Date: 06/29/2020219 FAX #: [phone] Reason: AMS, ISCHEMIC STROKE, UNABLE TO WEAN VENT. INTE EXAMS: CPT CODE: [id number] CT HEAD/BRAIN W/O CONT 73516 (Continued) better demonstrated on prior MRI. No parenchymal hemorrhage is seen. 2. Prominent scattered periventricular and subcortical hypodensities are redemonstrated. These findings are nonspecific but significantly greater than expected for age and appear new since October 2019. Recommend follow up MRI brain with contrast. at 0258 Reported and signed by: Bhavana [place] MD CC: Edy Olmedo MD; Stevie Santo MD Technologist: Farheen Yeager Dt/Tm: 06/29/2020 (0258) [email or web address] Orig Print D/T: S: 06/29/2020 (8538 PAGE 2 Signed Report- CT HEAD/BRAIN W/O [id number] 02:58:00 [facility] : 1985 Sex: M FAX: Edy Adame MD [phone] Constable: St: ADM FAX: Pineda Andersen Name: JORGE GOINS [facility] : 1985 Age/S: 34/M [address] Unit: [id number] Loc: [address] [address] Phys: Stevie Andersen MD R2 Acct: [id number] Dis Date: Status: ADM IN PHONE #: [phone] Exam Date: 06/29/2020219 FAX #: [phone] Reason: AMS, ISCHEMIC STROKE, UNABLE TO WEAN VENT. INTE EXAMS: CPT CODE: [id number] CT HEAD/BRAIN W/O CONT 57233 EXAM: - CT HEAD/BRAIN W/O CONT LOCATION: H57 HISTORY: 34 years-year old Male with AMS, ISCHEMIC STROKE, UNABLE TO WEAN VENT. INTERVAL MOSLEY TECHNIQUE: Computerized tomography images from the skull base to the vertex were obtained. Coronal and sagittal reformatted images are provided. This exam was performed according to our departmental dose-optimization program, which includes automated exposure control, adjustment of the mA and/or kV according to patientsize and/or use of iterative reconstruction technique COMPARISON: 09/23/2013, 11/19/2019, 06/26/2020, 06/24/2020 FINDINGS: Brain: Tiny acute infarcts in the left frontal and occipital lobes are better demonstrated on prior MRI. No parenchymal hemorrhage is seen. Scattered periventricular and subcortical hypodensities are nonspecific but significantly greater than expected for age. There is no evidence ofan acute territorial infarct. There is no mass effect, midline shift, or parenchymal edema. Ventricles/Extra-axial spaces: There is no acute intracranial hemorrhage or extra-axial fluid collection. Theventricles are unremarkable. No basal cistern effacement. Bones: There is no evidence of acute displaced calvarial fracture. Sinuses: The visualized paranasal sinuses and mastoid air cells are clear. Soft Tissues: Unremarkable. Other: None. IMPRESSION: 1. Tiny acute infarcts in the left frontal and occipital lobes are PAGE 1 Signed Report (CONTINUED) FAX: Edy Adame MD [phone] Constable: St: ADM FAX: Pineda Andersen Name: JORGE GOINS [facility] : 1985 Age/S: 34/M [address] Unit: [id number] Loc: [address] [address] Phys: Stevie Andersen MD R2 Acct: [id number] Dis Date: Status: ADM IN PHONE #: [phone] Exam Date: 06/29/2020219 FAX #: [phone] Reason: AMS, ISCHEMIC STROKE, UNABLE TO WEAN VENT. INTE EXAMS: CPT CODE: [id number] CT HEAD/BRAIN W/O CONT 03254 (Continued) better demonstrated on prior MRI. No parenchymal hemorrhage is seen. 2. Prominent scatteredperiventricular and subcortical hypodensities are redemonstrated. These findings are nonspecific butsignificantly greater than expected for age and appear new since October 2019. Recommend follow up MRI brain with contrast. at 0258 Reported and signed by: Bhavana Whitlock MD CC: Edy Olmedo MD; Stevie Santo MD Technologist: Geovanna Yeager Dt/Tm: 06/29/2020 (0258) Whitney.[email or web address] Orig Print D/T: S: 06/29/2020 (0491 PAGE 2 Signed Report- CT HEAD/BRAIN W/O [id number] 02:58:00 [facility] : 1985 Sex: M FAX: Edy Adame MD [phone] Constable: St: ADM FAX: Pineda Andersen Name: JORGE GOINS [facility] : 1985 Age/S: 34/M [address] Unit: [id number] Loc: [address] [address] Phys: Stevie Andersen MD R2 Acct: [id number] Dis Date: Status: ADM IN PHONE #: [phone] Exam Date: 06/29/2020219 FAX #: [phone] Reason: AMS, ISCHEMIC STROKE, UNABLE TO WEAN VENT. INTE EXAMS: CPT CODE: [id number] CT HEAD/BRAIN W/O CONT 85556 EXAM: - CT HEAD/BRAIN W/O CONT LOCATION: H57 HISTORY: 34 years-year old Male with AMS, ISCHEMIC STROKE, UNABLE TO WEAN VENT. INTERVAL MOSLEY TECHNIQUE: Computerized tomography images from the skull base to the vertex were obtained. Coronal and sagittal reformatted images are provided. This exam was performed according to our departmental dose-optimization program, which includes automated exposure control, adjustment of the mA and/or kV according to patient size and/or use of iterative reconstruction technique COMPARISON: 09/23/2013, 11/19/2019, 06/26/2020, 06/24/2020 FINDINGS: Brain: Tiny acute infarcts in the left frontal and occipital lobes are better demonstrated on prior MRI. No parenchymal hemorrhage is seen. Scattered periventricular and subcortical hypodensities are nonspecific but significantly greater than expected for age. There is no evidence of anacute territorial infarct. There is no mass effect, midline shift, or parenchymal edema. Ventricles/Extra-axial spaces: There is no acute intracranial hemorrhage or extra-axial fluid collection. The ventricles are unremarkable. No basal cistern effacement. Bones: There is no evidence of acute displaced calvarial fracture. Sinuses: The visualized paranasal sinuses and mastoid air cells are clear. SoftTissues: Unremarkable. Other: None. IMPRESSION: 1. Tiny acute infarcts in the left frontal and occipital lobes are PAGE 1 Signed Report (CONTINUED) FAX: Edy Adame MD [phone] Constable: St:ADM FAX: Pineda Andersen Name: JORGE GOINS [facility] : 1985 Age/S: 34/M [address] Unit: [id number] Loc: C[address] [address] Phys: Stevie Andersen MD R2 Acct: [id number] Dis Date: Status: ADM IN PHONE #: [phone] Exam Date: 06/29/2020219 FAX #: [phone] Reason: AMS, ISCHEMIC STROKE, UNABLE TO WEAN VENT. INTE EXAMS: CPT CODE: [id number] CT HEAD/BRAIN W/O CONT 86668 (Continued) better demonstrated on prior MRI. No parenchymal hemorrhage is seen. 2. Prominent scattered periventricular and subcortical hypodensities are redemonstrated. These findings are nonspecific but significantly greater than expected for age and appear new since October 2019. Recommend follow up MRI brain with contrast. at 0258 Reported and signed by: Bhavana Whitlock MD CC: Edy Olmedo MD; Stevie Santo MD Technologist: Geovanna Girard Trncassiard Dt/Tm: 06/29/2020 (0258) [email or web address] Orig Print D/T: S: 06/29/2020 (0301 PAGE 2 Signed Report [id number] 19:39:00 Test Item Value Reference Range Interpretation Comments GLUBED (test code = GLUBED) 107 MG/DL 74-106 H [id number] 12:51:00 Test Item Value Reference Range Interpretation Comments MAGNESIUM (test code = MAG) 2.0 mg/dL 1.6-2.3 N Last PROBNP result: 6920 g/dL on 02/27/20 - 1115NT PRO-BRAIN NATRIURETIC PEPTI 2020-06-28 12:51:00 Test Item Value Reference Range Interpretation Comments NT PRO-BRAIN 972 pg/mL 0-299 H ~~~~~~~~~~~~~~~ ~~~~~~~~~ NATRIURETIC PEPTI ~~~~~~~~~~ ~~~~~~~~~~~~~~ (test code = PROBNP) ~~~~~~~ ~~~~~NT PRO-BNP IS THE REPLACEM ENT ASSAY FOR BNP.~~~~~~~~~~~ ~~~~~~~~~ ~~~~~~~~~~~~~~~ ~~~~~~~~~ ~~~~~~~~~~~~~~~ ~RULE-IN CUT POINTS FOR PATIENTS WITH SUSPECTED ACUTECONGESTIVE HEART FAILURE:<50 yrs old: >450 pg/mL50-75 yrs old: >900 pg/mL>75 y rs old: >1800 pg/mL A positive bias m ay occur on patients srinivasa ing BIOTINsupplemen ts. Last PROBNP result: 6920 g/dL on 02/27/20 - [id number] 12:45:00 Test Item Value Reference Range Interpretation Comments MAGNESIUM (test code = MAG) 2.0 mg/dL 1.6-2.3 N Last PROBNP result: 6920 g/dL on 02/27/201114NT PRO-BRAIN NATRIURETIC PEPTI 2020-06-28 12:45:00 Test Item Value Reference Range Interpretation Comments NT PRO-BRAIN NATRIURETIC PEPTI (test pg/mL 0-299 code = PROBNP) Last PROBNP result: 6920 g/dL on 02/27/20 - 1114- XR CHEST 1 [id number] 07:24:00[facility] GO[facility] Brii : 1985 Sex: M FAX: Bhavana Arteaga APRN [phone] Constable: St: ADM FAX: Edy Adame MD [phone] Name: JORGE GOINS : 1985 Age/S: 34/M [address] Unit #: [id number] Loc: [address] [address] Phys: Bhavana Arteaga APRN Acct: [id number] Dis Date: Status: ADM IN PHONE #: [phone] Exam Date: 0549 FAX #: [phone] Reason: vent EXAMS: CPT CODE: [id number] XR CHEST 1 V 69216 EXAM: Portable chest x-ray, one view INDICATION: vent , uncontrolled hypertension LOCATION CODE: C3 COMPARISON: 06/27/2020 TECHNIQUE: Single Portable AP upright view of the chest DISCUSSION: The NG tube appears to be in satisfactory positioning. Endotracheal tube tip is seen at approximately 6.2 cm above the rubina. 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 There is a right internal jugular Mena's hemodialysis catheter with the tip in the distal SVC. Central venous catheter arises from the same site is also noted with its tip also at the distal SVC. Cardiac silhouette is mildly enlarged. Minimal residualpatchy density involving the right lung base seen. IMPRESSION: 1. Right basilar atelectasis. 2. Alllines and tube are in satisfactory positioning. at 0724 Reported and signed by: Philip Higgins M.D. CC: Bhavana Arteaga; Edy Olmedo MD Technologist: PERRY STONE Trnscrd Date/Time/By: 06/28/2020 (4924) : By: Frederick PAGE 1 Signed Report FAX: Bhavana Arteaga APRN [phone] Constable: St: ADM FAX: Edy Adame MD [phone] --------- Name: JORGE GOINS : 1985 Age/S: 34/M [address] Unit #: [id number] Loc: NeilICC[address] [place], [place] [address]Lahv: Bhavana Arteaga ALIE Acct: [id number] Dis Date: Status: ADM IN PHONE #: [phone] Exam Date: 06/28/202090 FAX #: [phone] Reason: vent EXAMS: CPT CODE: [id number] XR CHEST 1 V 23990 (Continued) Orig Print D/T: S: 06/28/2020 (0727) PAGE 2 Signed [id number] 06:25:00 Test Item Value Reference Range Interpretation Comments GLUBED (test code = GLUBED) 102 MG/DL 74-106 N POC ARTERIAL BLOOD [id number] 05:22:00 Test Item Value Reference Range Interpretation Comments POC ARTERIAL BLOOD GAS PH 7.43 pH units 7.35-7.45 N (test code = POCPHA) POC ARTERIAL BLOOD GAS PCO2 34.8 mmHg 35-48 L (test code = [id number]) POC TCO2 ARTERIAL (test 23.2 mmol/L 22-29 N code = POCTCO2) POC ARTERIAL BLOOD GAS PO2 102.9 mmHg 83-108 N (test code = CANUS1N) POC HCO3 ARTERIAL (test 23.2 mmol/L 21-28 N code = BRWFRY7T) POC BASE EXCESS (test code -0.7 mmol/L -2-3 N = POCBEA) POC O2 SATURATION (test 98.2 % 94-98 H code = POCO2S) ARTERIAL FIO2 (test code = 30 % FIO2A) PaO2/FiO2 (test code = 343.00 mm/Hg [id number]) ABG DELIVERY (test code = Adult Vent VISH) ABG VENT MODE (test code = SIMV/PS MODEA) ABG PATIENT RESP RATE (test 12 /MIN 12-20 N code = RRPATA) ABG PRESSURE SUPPORT (test 10 cmH2O code = PSABG) ABG SITE (test code = R Radial SITEA) ALLENS TEST (test code = Positive ALLENS) SODIUM (POC) (test code = 143 mmol/L 138-146 N NA/ABG) POTASSIUM (POC) (test code 3.8 mmol/L 3.5-4.5 N = K/ABG) POC IONIZED CALCIUM (test 1.17 MMOL/L 1.15-1.33 N code = POCCA) POC GLUCOSE (test code = 93 mg/dL 74-100 N POCGLU) POC SAMPLE SOURCE (test Arterial Descript Specimen code = POCSAMPLE) BASIC METABOLIC [id number] 02:49:00 Test Item Value Reference Range Interpretation Comments SODIUM (test code = 141 mmol/L 137-145 N NA) POTASSIUM (test code 3.9 mmol/L 3.4-5.0 N = K) CHLORIDE (test code = 109 mmol/L 98-107 H CL) CARBON DIOXIDE (test 25 mmol/L 22-30 N code = CO2) GLUCOSE (test code = 97 mg/dL 74-106 N GLU) BLOOD UREA NITROGEN 33 mg/dL 9-20 H (test code = BUN) GLOMERULAR FILTRATION 111 >60 The es timated RATE (test code = glomerular filtration GFR) rate is compute d usingpatient ra ce, age (>18), sex, and serum creatinine. If anyof the needed data elements are mi ssing the Laboratory cannot compute an kevin mation of the glomerul ar filtration rate . CREATININE (test code 1.0 mg/dL 0.7-1.3 N = CREAT) CALCIUM (test code = 7.8 mg/dL 8.4-10.2 L CA) [id number] 02:49:00 Test Item Value Reference Range Interpretation Comments MAGNESIUM (test code = MAG) 1.8 mg/dL 1.6-2.3 N CBC W/AUTO [id number] 02:42:00 Test Item Value Reference Range Interpretation Comments WHITE BLOOD CELL (test code = 6.1 x10 3/uL 5.0-12.0 N WBC) RED BLOOD CELL (test code = 3.25 x10 6/uL 4.70-6.10 L RBC) HEMOGLOBIN (test code = HGB) 9.3 g/dL 14.0-18.0 L HEMATOCRIT (test code = HCT) 30.6 % 37.0-49.0 L MEAN CELL VOLUME (test code = 94 fL 80-94 N MCV) MEAN CELL HGB (test code = MCH) 28.6 pg 27-31 N MEAN CELL HGB CONCENTRATION 30.4 g/dL 33-37 L (test code = MCHC) RED CELL DISTRIBUTION WIDTH 16.3 % 11.5-15.5 H (test code = RDW) PLATELET COUNT (test code = 201 x10 3/uL 130-400 N PLT) MEAN PLATELET VOLUME (test code 11.6 fL 9.4-16.4 N = MPV) NEUTROPHIL % (test code = NT%) 80.7 % 43-65 H IMMATURE GRANULOCYTE % (test 0.8 % 0.0-2.0 N code = IG%) LYMPHOCYTE % (test code = LY%) 8.0 % 20.5-45.5 L MONOCYTE % (test code = MO%) 8.3 % 5.5-11.7 N EOSINOPHIL % (test code = EO%) 2.0 % 0.9-2.9 N BASOPHIL % (test code = BA%) 0.2 % 0.2-1.0 N NUCLEATED RBC % (test code = 0.0 % 0-1.0 N NRBC%) NEUTROPHIL # (test code = NT#) 4.95 x10 3/uL 2.2-4.8 H IMMATURE GRANULOCYTE # (test 0.05 x10 3/uL 0-0.03 H code = IG#) LYMPHOCYTE # (test code = LY#) 0.49 x10 3/uL 1.3-2.9 L MONOCYTE # (test code = MO#) 0.51 x10 3/uL 0.3-0.8 N EOSINOPHIL # (test code = EO#) 0.12 x10 3/uL 0.0-0.2 N BASOPHIL # (test code = BA#) 0.01 x10 3/uL 0.0-0.1 N [id number] 07:39:00 Test Item Value Reference Range Interpretation Comments GLUBED (test code = GLUBED) 98 MG/DL 74-106 N - XR CHEST 1 [id number] 06:51:00 [facility] : 1985 Sex: M FAX: Bhavana Arteaga APRN [phone] Constable: St: ADM FAX: Edy Adame MD [phone] Name: JORGE GOINS [facility] : 1985 Age/S: 34/M [address] Unit #: [id number] Loc: C[address] [address] Phys: Bhavana Arteaga APRN Acct: [id number] Dis Date: Status: ADM IN PHONE #: [phone] Exam Date: 0 06/27/2020 0354 FAX #: [phone] Reason: vent EXAMS: CPT CODE: [id number] XR CHEST 1 V 97069 EXAM:Portable chest one view. Location code:J9 HISTORY: Shortness of breath COMPARISON: 06/26/2020 COMMENT:Stable position of ET tube, NG tube, and right IJ catheter.. Stable prominent interstitial lung markings and hazy lung opacities.. Stable mild right pleural effusion. Again noted is an aortic stent.. The cardiac silhouette is enlarged and stable in size. Visualized skeletal structures are unremarkable. IMPRESSION: Stable findings of CHF. at 0651 Reported and signed by: Rah Hollis MD CC: Bhavana Arteaga; Edy Olmedo MD Technologist: PERRY STONE Trnscrd Date/Time/By: 06/27/2020 (0651) : By: [email or web address] PAGE 1 Signed Report FAX: Bhavana Arteaga APRN [phone] Constable: St: ADM FAX: Edy Adame MD [phone] Name: JORGE GOINS [facility] : 1985 Age/S: 34/M [address] Unit #: [id number] Loc: [address] [address] Phys: Bhavana Arteaga APRN Acct: [id number] Dis Date: Status: ADM IN PHONE #: [phone] Exam Date: 353 FAX #: [phone] Reason: vent EXAMS: CPT CODE: [id number] XR CHEST 1 V 87621 (Continued) Orig Print D/T: S: 06/27/2020 (0654) PAGE 2 [facility] [id number] 06:32:00 Test Item Value Reference Range Interpretation Comments POC ARTERIAL BLOOD GAS PH 7.44 pH units 7.35-7.45 N (test code = POCPHA) POC ARTERIAL BLOOD GAS PCO2 33.6 mmHg 35-48 L (test code = NFZQPS7V) POC TCO2 ARTERIAL (test 22.9 mmol/L 22-29 N code = POCTCO2) POC ARTERIAL BLOOD GAS PO2 99.1 mmHg 83-108 N (test code = WSVKB0Z) POC HCO3 ARTERIAL (test 23.1 mmol/L 21-28 N code = TFWOLC1O) POC BASE EXCESS (test code -0.6 mmol/L -2-3 N = POCBEA) POC O2 SATURATION (test 98.0 % 94-98 N code = POCO2S) ARTERIAL FIO2 (test code = 30 % FIO2A) PaO2/FiO2 (test code = 330.33 mm/Hg [id number]) ABG DELIVERY (test code = Adult Vent VISH) ABG VENT MODE (test code = SIMV/PC MODEA) ABG PATIENT RESP RATE (test 12 /MIN 12-20 N code = RRPATA) ABG PRESSURE SUPPORT (test 10 cmH2O code = PSABG) ABG SITE (test code = R Radial SITEA) ALLENS TEST (test code = N/A ALLENS) SODIUM (POC) (test code = 141 mmol/L 138-146 N NA/ABG) POTASSIUM (POC) (test code 3.8 mmol/L 3.5-4.5 N = K/ABG) POC IONIZED CALCIUM (test 1.17 MMOL/L 1.15-1.33 N code = POCCA) POC GLUCOSE (test code = 118 mg/dL 74-100 H POCGLU) POC SAMPLE SOURCE (test Arterial Descript Specimen code = POCSAMPLE) BASIC METABOLIC [id number] 03:30:00 Test Item Value Reference Range Interpretation Comments SODIUM (test code = 139 mmol/L 137-145 N NA) POTASSIUM (test code 4.1 mmol/L 3.4-5.0 N = K) CHLORIDE (test code = 108 mmol/L 98-107 H CL) CARBON DIOXIDE (test 25 mmol/L 22-30 N code = CO2) GLUCOSE (test code = 102 mg/dL 74-106 N GLU) BLOOD UREA NITROGEN 37 mg/dL 9-20 H (test code = BUN) GLOMERULAR FILTRATION 99 >60 The es timated RATE (test code = glomerular filtration GFR) rate is compute d usingpatient ra ce, age (>18), sex, and serum creatinine. If anyof the needed data elements are mi ssing the Laboratory cannot compute an kevin mation of the glomerul ar filtration rate . CREATININE (test code 1.1 mg/dL 0.7-1.3 N = CREAT) CALCIUM (test code = 7.7 mg/dL 8.4-10.2 L CA) [id number] 03:30:00 Test Item Value Reference Range Interpretation Comments TRIGLYCERIDES (test 135 mg/dL TRIGLYCE RIDES code = TRIG) REFERENCE RANGE:Normal: < 150 mg/dLBorderline High: 150-199 mg/dLHi gh: 200-499 mg/dLVe ry High: >=500 mg/ dL CBC W/AUTO [id number] 03:17:00 Test Item Value Reference Range Interpretation Comments WHITE BLOOD CELL (test code = 5.5 x10 3/uL 5.0-12.0 N WBC) RED BLOOD CELL (test code = 3.22 x10 6/uL 4.70-6.10 L RBC) HEMOGLOBIN (test code = HGB) 9.2 g/dL 14.0-18.0 L HEMATOCRIT (test code = HCT) 30.6 % 37.0-49.0 L MEAN CELL VOLUME (test code = 95 fL 80-94 H MCV) MEAN CELL HGB (test code = MCH) 28.6 pg 27-31 N MEAN CELL HGB CONCENTRATION 30.1 g/dL 33-37 L (test code = MCHC) RED CELL DISTRIBUTION WIDTH 16.1 % 11.5-15.5 H (test code = RDW) PLATELET COUNT (test code = 166 x10 3/uL 130-400 N PLT) MEAN PLATELET VOLUME (test code 11.9 fL 9.4-16.4 N = MPV) NEUTROPHIL % (test code = NT%) 77.1 % 43-65 H IMMATURE GRANULOCYTE % (test 0.7 % 0.0-2.0 N code = IG%) LYMPHOCYTE % (test code = LY%) 8.6 % 20.5-45.5 L MONOCYTE % (test code = MO%) 11.2 % 5.5-11.7 N EOSINOPHIL % (test code = EO%) 2.4 % 0.9-2.9 N BASOPHIL % (test code = BA%) 0.0 % 0.2-1.0 L NUCLEATED RBC % (test code = 0.0 % 0-1.0 N NRBC%) NEUTROPHIL # (test code = NT#) 4.20 x10 3/uL 2.2-4.8 N IMMATURE GRANULOCYTE # (test 0.04 x10 3/uL 0-0.03 H code = IG#) LYMPHOCYTE # (test code = LY#) 0.47 x10 3/uL 1.3-2.9 L MONOCYTE # (test code = MO#) 0.61 x10 3/uL 0.3-0.8 N EOSINOPHIL # (test code = EO#) 0.13 x10 3/uL 0.0-0.2 N BASOPHIL # (test code = BA#) 0.00 x10 3/uL 0.0-0.1 N - MRI BRAIN W/O [id number] 13:43:00 [facility] : 1985 Sex: M FAX: Edy Adame MD [phone] Constable: St: ADM FAX: Pineda Andersen Name: TREMAYNE GOINSEME Brii [facility] : 1985 Age/S: 34/M [address] Unit #: [id number] Loc: [address] [address] Phys: Stevie Fitch MD R2 Acct: [id number] Dis Date: Status: ADM IN PHONE #: [phone] Exam Date: 06/26/2020 1200 FAX #: [phone] Reason: ams, encephalopathy EXAMS: CPT CODE: [id number] MRI BRAIN W/OCONTRAST 27481 Location: T18 EXAM: MRI BRAIN WITHOUT CONTRAST INDICATION: Altered mental status. Encephalopathy. COMPARISON: CT brain dated 06/24/2020 TECHNIQUE: Multiplanar, multisequence MRI of the brain without contrast. IV contrast: None. FINDINGS: There are small regions of restricted diffusion within the left frontal lobe and left occipital lobe. There is a small region of susceptibility withinthe left occipital lobe, which may represent a small, chronic microhemorrhage. There are abnormal patchy areas of T2/FLAIR hyperintensity within the bilateral frontal periventricular/deep white matter a nd bilateral peritrigonal white matter of the parietal lobes. The large intracranial vessels demonstrate normal flow-voids. There is mild mucosal thickening of the ethmoid air cells. The remainder of the imaged portions of the paranasal sinuses are clear. There is minimal thickening of the left mastoid air cells. No abnormality of the orbits or globes. IMPRESSION: Small regions of restricted diffusion within the left frontal lobe and left occipital lobe, concerning for acute infarcts. Abnormal patchy periventricular/deep white matter T2/FLAIR hyperintensities within the frontal lobes and parietal lobes, which are nonspecific. Possibilities include, but are not limited to, vasogenic edema, vasculitis, demyelination or infection. Correlation with a contrast-enhanced MRI examination is recommended. Findings conveyed to the patient's nurse, Nimisha, at 1342 hours on 06/26/2020. PAGE 1 Signed Report(CONTINUED) FAX: Edy Adame MD [phone] Constable: St: ADM FAX: Pineda Andersen ------- Name: JORGE GOINS [facility] : 1985 Age/S: 34/M [address] Unit #: [id number] Loc: [address] [address] Phys: Stevie Andersen MD R2 Acct: [id number] Dis Date: Status: ADM IN PHONE #: [phone] Exam Date: 06/26/2020 1200 FAX #: [phone] Reason: ams, encephalopathy EXAMS: CPT CODE: [id number] MRI BRAIN W/O CONTRAST 85836 (Continued) FOR INTERNAL CODING PURPOSES ONLY RESULT CODE: [id number] Reported and signed by: Paras Faustin MD CC: Edy Olmedo MD; Stevie Santo MD Technologist: FRANK VANCE [facility] Date/Time/By: 06/26/2020 (5993) : By: [email or web address] PAGE 2 Signed Report FAX: Edy Adame MD [phone] Constable: St: ADM FAX: Pineda Andersen Name: JORGE GOINS Brii [facility] : 1985 Age/S: 34/M [address] Unit #: [id number] Loc: [address] [address] Phys:Stevie Andersen MD R2 Acct: [id number] Dis Date: Status: ADM IN PHONE #: [phone] Exam Date: 06/26/2020 1200 FAX #: [phone] Reason: ams, encephalopathy EXAMS: CPT CODE: [id number] MRI BRAIN W/O CONTRAST 15060 (Continued) Orig Print D/T: S: 06/26/2020 (7425) PAGE 3 Signed [id number] 13:34:00 Test Item Value Reference Range Interpretation Comments GLUBED (test code = GLUBED) 106 MG/DL 74-106 N POC ARTERIAL BLOOD [id number] 07:59:00 Test Item Value Reference Range Interpretation Comments POC ARTERIAL BLOOD GAS PH 7.46 pH units 7.35-7.45 H (test code = POCPHA) POC ARTERIAL BLOOD GAS PCO2 32.7 mmHg 35-48 L (test code = NDXAJD7S) POC TCO2 ARTERIAL (test 23.0 mmol/L 22-29 N code = POCTCO2) POC ARTERIAL BLOOD GAS PO2 99.0 mmHg 83-108 N (test code = QFXCM6Y) POC HCO3 ARTERIAL (test 23.1 mmol/L 21-28 N code = DNKIUK3J) POC BASE EXCESS (test code -0.1 mmol/L -2-3 N = POCBEA) POC O2 SATURATION (test 98.1 % 94-98 H code = POCO2S) ARTERIAL FIO2 (test code = 30 % FIO2A) PaO2/FiO2 (test code = 330.00 mm/Hg UCF6ZBY3) ABG DELIVERY (test code = Adult Vent VISH) ABG VENT MODE (test code = SIMV(VC)+PS MODEA) ABG PATIENT RESP RATE (test 14 /MIN 12-20 N code = RRPATA) ABG PRESSURE SUPPORT (test 30 cmH2O code = PSABG) ABG SITE (test code = R Radial SITEA) ALLENS TEST (test code = Positive ALLENS) SODIUM (POC) (test code = 141 mmol/L 138-146 N NA/ABG) POTASSIUM (POC) (test code 3.8 mmol/L 3.5-4.5 N = K/ABG) POC IONIZED CALCIUM (test 1.10 MMOL/L 1.15-1.33 L code = POCCA) POC GLUCOSE (test code = 117 mg/dL 74-100 H POCGLU) POC SAMPLE SOURCE (test Arterial Descript Specimen code = POCSAMPLE) - XR CHEST 1 [id number] 07:08:00 [facility] : 1985 Sex: M FAX: Joselyn Dominguez NP [phone] Constable: St: [facility] FAX: Edy Adame MD [phone] Name: JORGE GOINS [facility] : 1985 Age/S: 34/M [address] Unit #: [id number] Loc: [address] [address] Phys:Joselyn Calvo NP Acct: [id number] Dis Date: Status: ADM IN PHONE #: [phone] Exam Date: 06/26/19519 FAX #: [phone] Reason: intubated EXAMS: CPT CODE: [id number] XR CHEST 1 V 36166 EXAM: Portable chest x-ray, one view INDICATION: intubated LOCATION CODE: C3 COMPARISON: 06/25/2020 TECHNIQUE: Single Portable AP upright view of the chest DISCUSSION: The NG tube appears to have been pulled back. The tip now reside in the upper esophagus. Recommend the positioning. Endotracheal tube tip is seen at approximately 5.2 cm above the rubina. 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 There is a right internal jugular Mena's hemodialysis catheter with the tip in the distal SVC. Central venous catheter arises from the same site is also noted with its tip also at the distal SVC. The heart is mild ly enlarged with a globular appearance. Therefore underlying pericardial effusion cannot be excluded. Previously noted large opacity involving the right lower lung zone has demonstrate improvement withbetter aeration. IMPRESSION: 1. Improvement of aeration involving the right lower lobe. 2. All lines and tube remains unchanged in the position. Except for NG tube which appears to have been retractedto the upper esophagus. Recommend repositioning. at 0708 Reported and signed by: Philip Higgins M.D. PAGE 1 Signed Report (CONTINUED) FAX: Joselyn Dominguez NP [phone] Constable: [facility]: ADM FAX: Edy Adame MD [phone] Name: ETHANKENJORGE Brii [facility] : 1985 Age/S: 34/M [address] Unit #: [id number] Loc: [address] [place] [address] Phys: Joselyn Calvo NP Acct: [id number] Dis Date: Status: ADM IN PHONE #: [phone] Exam Date: 06/26/2020519 FAX #: [phone] Reason: intubated EXAMS: CPT CODE: [id number] XR CHEST 1 V 20423 (Continued) CC: Joselyn Calvo NP; Edy Olmedo MD Technologist: PIETER PALACIO (R) Trnmtrd Date/Time/By: 06/26/2020(0708) : By: Frederick PAGE 2 Signed Report FAX: Joselyn Dominguez NP [phone] Constable: [facility]: ADM FAX: Edy Adame MD [phone] Name: JORGE GOINS [facility] : 1985 Age/S: 34/M [address] Unit #:[id number] Loc: [address] [address] Phys: Joselyn Calvo NP Acct: [id number] Dis Date: Status:ADM IN PHONE #: [phone] Exam Date: 06/26/2020519 FAX #: [phone] Reason: intubated EXAMS:CPT CODE: [id number] XR CHEST 1 V 57686 (Continued) Orig Print D/T: S: 06/26/2020 (0711) PAGE 3 Signed ReportBASIC METABOLIC [id number] 02:57:00 Test Item Value Reference Range Interpretation Comments SODIUM (test code = 138 mmol/L 137-145 N NA) POTASSIUM (test code 3.9 mmol/L 3.4-5.0 N = K) CHLORIDE (test code = 107 mmol/L 98-107 N CL) CARBON DIOXIDE (test 27 mmol/L 22-30 N code = CO2) GLUCOSE (test code = 93 mg/dL 74-106 N GLU) BLOOD UREA NITROGEN 42 mg/dL 9-20 H (test code = BUN) GLOMERULAR FILTRATION 75 >60 The es timated RATE (test code = glomerular filtration GFR) rate is compute d usingpatient ra ce, age (>18), sex, and serum creatinine. If anyof the needed data elements are mi ssing the Laboratory cannot compute an kevin mation of the glomerul ar filtration rate . CREATININE (test code 1.4 mg/dL 0.7-1.3 H = CREAT) CALCIUM (test code = 7.7 mg/dL 8.4-10.2 L CA) [id number] 02:57:00 Test Item Value Reference Range Interpretation Comments PHOSPHOROUS (test code = PHOS) 3.6 mg/dL 2.5-4.5 N [id number] 02:57:00 Test Item Value Reference Range Interpretation Comments MAGNESIUM (test code = MAG) 1.8 mg/dL 1.6-2.3 N CBC W/AUTO [id number] 02:31:00 Test Item Value Reference Range Interpretation Comments WHITE BLOOD CELL (test code = 6.7 x10 3/uL 5.0-12.0 N WBC) RED BLOOD CELL (test code = 3.16 x10 6/uL 4.70-6.10 L RBC) HEMOGLOBIN (test code = HGB) 9.1 g/dL 14.0-18.0 L HEMATOCRIT (test code = HCT) 30.4 % 37.0-49.0 L MEAN CELL VOLUME (test code = 96 fL 80-94 H MCV) MEAN CELL HGB (test code = MCH) 28.8 pg 27-31 N MEAN CELL HGB CONCENTRATION 29.9 g/dL 33-37 L (test code = MCHC) RED CELL DISTRIBUTION WIDTH 16.2 % 11.5-15.5 H (test code = RDW) PLATELET COUNT (test code = 169 x10 3/uL 130-400 N PLT) MEAN PLATELET VOLUME (test code 10.6 fL 9.4-16.4 N = MPV) NEUTROPHIL % (test code = NT%) 74.1 % 43-65 H IMMATURE GRANULOCYTE % (test 0.7 % 0.0-2.0 N code = IG%) LYMPHOCYTE % (test code = LY%) 9.7 % 20.5-45.5 L MONOCYTE % (test code = MO%) 13.3 % 5.5-11.7 H EOSINOPHIL % (test code = EO%) 2.1 % 0.9-2.9 N BASOPHIL % (test code = BA%) 0.1 % 0.2-1.0 L NUCLEATED RBC % (test code = 0.0 % 0-1.0 N NRBC%) NEUTROPHIL # (test code = NT#) 4.96 x10 3/uL 2.2-4.8 H IMMATURE GRANULOCYTE # (test 0.05 x10 3/uL 0-0.03 H code = IG#) LYMPHOCYTE # (test code = LY#) 0.65 x10 3/uL 1.3-2.9 L MONOCYTE # (test code = MO#) 0.89 x10 3/uL 0.3-0.8 H EOSINOPHIL # (test code = EO#) 0.14 x10 3/uL 0.0-0.2 N BASOPHIL # (test code = BA#) 0.01 x10 3/uL 0.0-0.1 N - DUP ABD/PEL/SC [id number] 22:59:00 [facility] 1985 Sex: M FAX: Joselyn Dominguez NP [phone] Constable: St: [facility] FAX: Edy Adame MD [phone] Name: JORGE GOINS [facility] : 1985 Age/S: 34/M [address] Unit #: [id number] Loc: [address] [address] Phys: Joselyn Calvo NP Acct: [id number] Dis Date: Status: ADM IN PHONE #: [phone] Exam Date: 020 1900 FAX #: [phone] Reason: renal artery Doppler EXAMS: CPT CODE: [id number] DUP ABD/PEL/SCCOMP 35558 DICTATION LOCATION: [facility] [place] HISTORY: Male, 34 years of age with hypertension, history of aortic dissection with aortic stent graft in place. EXAM: BILATERAL RENAL ARTERY DUPLEX DOPPLER STUDY COMPARISON: Correlation made with CT angiography of abdomen and pelvis performed 06/21/2020 TECHNIQUE: Real-time grayscale 2-D imaging, Doppler spectral analysis, and Doppler color flow imaging were performed of the abdominal aorta and both renal arteries transabdominally. FINDINGS: RENAL ARTERY DOPPLERSTUDY: According to technologist, study is limited by bowel gas. The patient has an aortic stent graft in place producing shadowing. Significant luminal narrowing seen in the mid aorta, producing elevated peak systolic velocity of 237.2 cm/s. Appropriate triphasic waveforms seen in both renal arteriesby pulse wave Doppler. Peak systolic velocity in the proximal aorta is 75.2 cm/s. Peak systolic velocity in the mid aorta is 237.2 cm/s. Peak systolic velocity in right renal artery is 97.6 cm/s. Peak systolic velocity in left renal artery is 147.5 cm/s. Right renal artery to the proximal aorta peak systolic velocity ratio is 1.3. Left renal artery to the proximal aorta peak systolic velocity ratio is 2.0 (normal less than 3). Right renal artery to the mid aorta peak systolic velocity ratio is 0.4.Left renal artery to the mid aorta peak systolic velocity ratio is 0.6 (normal less than 3). IMPRESSION: 1. No Doppler evidence of renal artery stenosis. 2. It should be noted that on review of the CTangiography of abdomen/pelvis performed 06/21/2020, there appears to be a short segment of focal stenosis in the distal left renal artery near hilum. PAGE 1 Signed Report (CONTINUED) FAX: Joselyn Dominguez NP [phone] Constable: St: ADM FAX: Eyd Adame MD [phone] [facility] 1985 Age/S: 34[facility]M [address] Unit #: [id number] Loc: C[address] [address] Phys: Joselyn Calvo NP Acct: [id number] Dis Date: Status: ADM IN PHONE #: [phone] Exam Date: 06/25/2020 1900 FAX #: [phone] Reason: renal artery Doppler EXAMS: CPT CODE: [id number] DUP ABD/PEL/SC COMP 95895 (Continued) at 1509 Reported and signed by: Janeen Mendoza MD CC: Joselyn Calvo BRAZING MACHINE TENDER; Edy Olmedo MD Technologist: Glo Nagy [facility] Date/Time/By: 06/25/2020 (7920) : By: BeataW PAGE 2 Signed Report FAX: Joselyn Dominguez NP [phone] Constable: St: ADM FAX: Edy Adame MD [phone] Name: JORGE GOINS [facility] : 1985 Age/S: 34/M [address] Unit #: [id number] Loc: [address] [place] [address] Phys: Joselyn Calvo NP Acct: [id number] Dis Date: Status: ADM IN PHONE #: [phone] Exam Date: 06/25/2020 190 FAX #: [phone] Reason: renal artery Doppler EXAMS: CPT CODE: [id number] DUP ABD/PEL/SC COMP 72402 (Continued) Orig Print D/T: S: 06/25/2020 (6874) PAGE 3 Signed [id number] 18:10:00 Test Item Value Reference Range Interpretation Comments GLUBED (test code = GLUBED) 103 MG/DL 74-106 N [id number] 12:52:00 Test Item Value Reference Range Interpretation Comments GLUBED (test code = GLUBED) 100 MG/DL 74-106 N [id number] 12:52:00 Test Item Value Reference Range Interpretation Comments GLUBED (test code = GLUBED) 92 MG/DL 74-106 N [id number] 12:52:00 Test Item Value Reference Range Interpretation Comments GLUBED (test code = GLUBED) 86 MG/DL 74-106 N - XR CHEST 1 [id number] 07:20:00 [facility] : 1985 Sex: M FAX: Joselyn Dominguez NP [phone] Constable: St: [facility] FAX: Edy Adame MD [phone] Name: JORGE GOINS [facility] : 1985 Age/S: 34/M [address] Unit #: [id number] Loc: .[facility] [place] [address] Phys: Joselyn Calvo NP Acct: [id number] Dis Date: Status: ADM IN PHONE #: [phone] Exam Date: 06/25/20 0502 FAX #: [phone] Reason: intubated EXAMS: CPT CODE: [id number] XR CHEST 1 V 99475 EXAM: - XR CHEST 1 V LOCATION: C3 HISTORY: intubated COMPARISON: 06/24/2020 FINDINGS: Single view of the chest. Interval NG tube retraction with side-port overlying the distal esophagus. Remaining lines and tubes are unchanged. Endotracheal tube tip is 6 cm above the rubina. No pneumothorax. Right lower lobe atelectasis has developed. The mediastinal contours are unremarkable/unchanged. No acute osseous findings are present. IMPRESSION: New right lower lobe atelectasis. Lines and tubes as above. at 0720 Reported and signed by: Denny Mohamud MD CC: Joselyn Calvo BRAZING MACHINE TENDER; Edy Olmedo MD Technologist: PIETER GARRISON RT (R) Trnscrd Date/Time/By: 06/25/2020 (07) : By: LourdesHV2 PAGE 1 Signed Report FAX: Joselyn Dominguez NP [phone] Constable: St: ADMFAX: Edy Adame MD [phone] Name: JORGE GOINS [facility] : 1985 Age/S: 34/M [address] Unit#: [id number] Loc: [address] [address] Phys: Joselyn Calvo NP Acct: [id number] Dis Date: Status: ADM IN PHONE #: [phone] Exam Date: 06/25/2020 0502 FAX #: [phone] Reason: intubated EXAMS: CPT CODE: [id number] XR CHEST 1 V 85880 (Continued) Orig Print D/T: S: 06/25/2020 (0713) PAGE 2 Signed ReportBASIC METABOLIC [id number] 05:05:00 Test Item Value Reference Range Interpretation Comments SODIUM (test code = 141 mmol/L 137-145 N NA) POTASSIUM (test code 3.5 mmol/L 3.4-5.0 N = K) CHLORIDE (test code = 108 mmol/L 98-107 H CL) CARBON DIOXIDE (test 25 mmol/L 22-30 N code = CO2) GLUCOSE (test code = 105 mg/dL 74-106 N GLU) BLOOD UREA NITROGEN 50 mg/dL 9-20 H (test code = BUN) GLOMERULAR FILTRATION 69 >60 The es timated RATE (test code = glomerular filtration GFR) rate is compute d usingpatient ra ce, age (>18), sex, and serum creatinine. If anyof the needed data elements are mi ssing the Laboratory cannot compute an kevin mation of the glomerul ar filtration rate . CREATININE (test code 1.5 mg/dL 0.7-1.3 H = CREAT) CALCIUM (test code = 7.5 mg/dL 8.4-10.2 L CA) [id number] 05:05:00 Test Item Value Reference Range Interpretation Comments PHOSPHOROUS (test code = PHOS) 3.2 mg/dL 2.5-4.5 N [id number] 05:05:00 Test Item Value Reference Range Interpretation Comments MAGNESIUM (test code = MAG) 1.9 mg/dL 1.6-2.3 N BASIC METABOLIC [id number] 05:04:00 Test Item Value Reference Range Interpretation Comments SODIUM (test code = 141 mmol/L 137-145 N NA) POTASSIUM (test code 3.5 mmol/L 3.4-5.0 N = K) CHLORIDE (test code = 108 mmol/L 98-107 H CL) CARBON DIOXIDE (test 25 mmol/L 22-30 N code = CO2) GLUCOSE (test code = 105 mg/dL 74-106 N GLU) BLOOD UREA NITROGEN 50 mg/dL 9-20 H (test code = BUN) GLOMERULAR FILTRATION 69 >60 The es timated RATE (test code = glomerular filtration GFR) rate is compute d usingpatient ra ce, age (>18), sex, and serum creatinine. If anyof the needed data elements are mi ssing the Laboratory cannot compute an kevin mation of the glomerul ar filtration rate . CREATININE (test code 1.5 mg/dL 0.7-1.3 H = CREAT) CALCIUM (test code = 7.5 mg/dL 8.4-10.2 L CA) [id number] 05:04:00 Test Item Value Reference Range Interpretation Comments PHOSPHOROUS (test code = PHOS) mg/dL 2.5-4.5 [id number] 05:04:00 Test Item Value Reference Range Interpretation Comments MAGNESIUM (test code = MAG) mg/dL 1.6-2.3 CBC W/AUTO [id number] 04:41:00 Test Item Value Reference Range Interpretation Comments WHITE BLOOD CELL (test code = 8.2 x10 3/uL 5.0-12.0 N WBC) RED BLOOD CELL (test code = 3.60 x10 6/uL 4.70-6.10 L RBC) HEMOGLOBIN (test code = HGB) 10.3 g/dL 14.0-18.0 L HEMATOCRIT (test code = HCT) 33.1 % 37.0-49.0 L MEAN CELL VOLUME (test code = 92 fL 80-94 N MCV) MEAN CELL HGB (test code = MCH) 28.6 pg 27-31 N MEAN CELL HGB CONCENTRATION 31.1 g/dL 33-37 L (test code = MCHC) RED CELL DISTRIBUTION WIDTH 15.9 % 11.5-15.5 H (test code = RDW) PLATELET COUNT (test code = 191 x10 3/uL 130-400 N PLT) MEAN PLATELET VOLUME (test code 10.4 fL 9.4-16.4 N = MPV) NEUTROPHIL % (test code = NT%) 77.8 % 43-65 H IMMATURE GRANULOCYTE % (test 0.6 % 0.0-2.0 N code = IG%) LYMPHOCYTE % (test code = LY%) 7.7 % 20.5-45.5 L MONOCYTE % (test code = MO%) 12.1 % 5.5-11.7 H EOSINOPHIL % (test code = EO%) 1.7 % 0.9-2.9 N BASOPHIL % (test code = BA%) 0.1 % 0.2-1.0 L NUCLEATED RBC % (test code = 0.0 % 0-1.0 N NRBC%) NEUTROPHIL # (test code = NT#) 6.37 x10 3/uL 2.2-4.8 H IMMATURE GRANULOCYTE # (test 0.05 x10 3/uL 0-0.03 H code = IG#) LYMPHOCYTE # (test code = LY#) 0.63 x10 3/uL 1.3-2.9 L MONOCYTE # (test code = MO#) 0.99 x10 3/uL 0.3-0.8 H EOSINOPHIL # (test code = EO#) 0.14 x10 3/uL 0.0-0.2 N BASOPHIL # (test code = BA#) 0.01 x10 3/uL 0.0-0.1 N POC ARTERIAL BLOOD [id number] 04:30:00 Test Item Value Reference Range Interpretation Comments POC ARTERIAL BLOOD GAS PH 7.47 pH units 7.35-7.45 H (test code = POCPHA) POC ARTERIAL BLOOD GAS PCO2 33.2 mmHg 35-48 L (test code = UONFWR6A) POC TCO2 ARTERIAL (test 23.7 mmol/L 22-29 N code = POCTCO2) POC ARTERIAL BLOOD GAS PO2 90.3 mmHg 83-108 N (test code = PTNDM8L) POC HCO3 ARTERIAL (test 23.9 mmol/L 21-28 N code = YYCWJF0P) POC BASE EXCESS (test code 0.5 mmol/L -2-3 N = POCBEA) POC O2 SATURATION (test 97.6 % 94-98 N code = POCO2S) ARTERIAL FIO2 (test code = 30 % FIO2A) PaO2/FiO2 (test code = 301.00 mm/Hg FUT0VLV4) ABG DELIVERY (test code = Adult Vent VISH) ABG VENT MODE (test code = SIMV(VC)+PS MODEA) ABG PATIENT RESP RATE (test 31 /MIN 12-20 H code = RRPATA) ABG PRESSURE SUPPORT (test 10 cmH2O code = PSABG) ABG SITE (test code = L Radial SITEA) ALLENS TEST (test code = Positive ALLENS) SODIUM (POC) (test code = 141 mmol/L 138-146 N NA/ABG) POTASSIUM (POC) (test code 3.3 mmol/L 3.5-4.5 L = K/ABG) POC IONIZED CALCIUM (test 1.13 MMOL/L 1.15-1.33 L code = POCCA) POC GLUCOSE (test code = 121 mg/dL 74-100 H POCGLU) POC SAMPLE SOURCE (test Arterial Descript Specimen code = POCSAMPLE) [id number] 18:37:00 Test Item Value Reference Range Interpretation Comments GLUBED (test code = GLUBED) 99 MG/DL 74-106 N [id number] 18:37:00 Test Item Value Reference Range Interpretation Comments GLUBED (test code = GLUBED) 65 MG/DL 74-106 L [id number] 18:37:00 Test Item Value Reference Range Interpretation Comments GLUBED (test code = GLUBED) 111 MG/DL 74-106 H - CT HEAD/BRAIN W/O [id number] 14:43:00 [facility] : 1985 Sex: M FAX: Tai Haynes MD R1 Constable: St: ADM FAX: Edy Adame MD [phone] Name: JORGE GOINS [facility] : 1985 Age/S: 34/M [address] Unit: [id number] Loc: [address] [address] Phys: Tai Haynes MD R1 Acct: [id number] Dis Date: Status: ADM IN PHONE #: [phone] Exam Date: 06/24/2020 1430 FAX #: [phone] Reason: New failure to withdraw from pain in lower extr EXAMS: CPT CODE: [id number] CT HEAD/BRAIN W/O CONT 81914 EXAM: CT HEAD WITHOUT CONTRAST HISTORY: 34 years -old Male with New failure to withdraw from pain in lower extremities LOCATION CODE: C3 COMPARISON: None TECHNIQUE: Noncontrast CT examination of the brain performed with contiguous axial images obtained from base to vertex. Automated exposure reduction (Auto mA / Smart mA) was utilized in compliance with ACR image wisely. Total Exam DLP : 707 mGy/cm CTDI vol: 39.63 mGy FINDINGS: Faint basal ganglia calcification bilaterally are again seen. Ventricles and sulci are unremarkable. No intracranial hemorrhage is seen. No mass or midline shift noted. There is no extra-axial mass or abnormal fluid collection. Osseous structures are within normal limits. The mastoid air cells are unremarkable. Paranasal sinuses are unremarkable. The orbits bilaterally are within normal limits. IMPRESSION: 1. Unremarkable noncontrast CT head. PAGE 1 Signed Report (CONTINUED) FAX: Tai Haynes MD R1 Constable: St: ADM FAX: Edy Adame MD [phone] [facility] 1985 Age/S: 34[facility]M [address] Unit: [id number] Loc: [address] [address] Phys: Tai Haynes MD R1 Acct: [id number] Dis Date: Status: ADM IN PHONE #: [phone] Exam Date: 06/24/2020 1430 FAX #: [phone] Reason: New failure to withdraw from painin lower extr EXAMS: CPT CODE: [id number] CT HEAD/BRAIN W/O CONT 49618 (Continued) Please note that CT examination of the brain can be normal for acute stages of CVA. Diagnosis should be based on clinical history and neurologic exam. Followup MRI of the brain has greater sensitivity for early detection of acute infarct. This report was generated by using voice recognition software. ElectronicallySigned by Amy Higgins on 06/24/2020 at 9709 Reported and signed by: Philip Higgins M.D. CC: Tai Haynes MD; Edy Olmedo MD Technologist: TAN ANDREWS, RT(R,CT); LUDY ALONSO RT (R,CT) TrnscrdDt/Tm: 06/24/2020 (6545) t.LALOR.HPD Orig Print D/T: S: 06/24/2020 (3052 PAGE 2 Signed Report [id number] 11:25:00 Test Item Value Reference Range Interpretation Comments POTASSIUM (test code = K) 3.5 mmol/L 3.4-5.0 N [id number] 09:29:00 Test Item Value Reference Range Interpretation Comments GLUBED (test code = GLUBED) 108 MG/DL 74-106 H - XR CHEST 1 [id number] 07:08:00 [facility] : 1985 Sex: M FAX: Derrick Yanes [phone] Constable: St: ADM FAX: Edy Adame MD [phone] Name: JORGE GOINS [facility] : 1985 Age/S: 34/M [address] Unit #: [id number] Loc: C.ICC[address] [place] [address] Phys: Derrick Gomez BRAZING MACHINE TENDER Acct: [id number] Dis Date: Status: ADM IN PHONE #: [phone] Exam Date: 06/24/2020 0435 FAX #: [phone] Reason: f/u intubated EXAMS: CPT CODE: [id number] XR CHEST 1 [id number] EXAM: - XR CHEST 1 V LOCATION: C3 HISTORY: f/u intubated COMPARISON: 06/23/2020 FINDINGS: Single view of the chest. Indwelling lines and tubes are unchanged. Endotracheal tube tip is 7.5 cm abovethe rubina. No pneumothorax. Lung volumes are low. No consolidation or effusions. Unchanged cardiomegaly. No acute osseous findings are present. IMPRESSION: Lines and tubes as above. at 0708 Reported and signed by: Denny Mohamud MD CC: Derrick Gomez BRAZING MACHINE TENDER; Edy Olmedo MD Technologist: RT Eddie Ashley) Trnmtrd Date/Time/By: 06/24/2020 (0708) : By: LourdesHV2 PAGE 1 Signed Report FAX: Derrick Yanes [phone] Constable: St: ADM FAX: Edy Adame MD [phone] Name: JORGE GOINS [facility] : 1985 Age/S: 34/M [address] Unit #: [id number] Loc: [address] [address] Phys: Derrick Gomez NP Acct: [id number] Dis Date: Status: ADM IN PHONE #: [phone] Exam Date: 06/24/2020 0435 FAX #: [phone] Reason: f/u intubated EXAMS: CPT CODE: [id number] XR CHEST 1 V 89134 (Continued) Orig Print D/T: S: 06/24/2020 (11) PAGE 2 Signed [id number] 06:56:00 Test Item Value Reference Range Interpretation Comments POTASSIUM (test code = K) 3.3 mmol/L 3.4-5.0 L POC ARTERIAL BLOOD [id number] 04:53:00 Test Item Value Reference Range Interpretation Comments POC ARTERIAL BLOOD GAS PH 7.43 pH units 7.35-7.45 N (test code = POCPHA) POC ARTERIAL BLOOD GAS PCO2 34.8 mmHg 35-48 L (test code = XKYINA9Y) POC TCO2 ARTERIAL (test 24.1 mmol/L 22-29 N code = POCTCO2) POC ARTERIAL BLOOD GAS PO2 88.7 mmHg 83-108 N (test code = EPMRJ3G) POC HCO3 ARTERIAL (test 23.1 mmol/L 21-28 N code = TFDSLV9Q) POC BASE EXCESS (test code -0.8 mmol/L -2-3 N = POCBEA) POC O2 SATURATION (test 97.2 % 94-98 N code = POCO2S) ARTERIAL FIO2 (test code = 28 % FIO2A) PaO2/FiO2 (test code = 316.78 mm/Hg [id number]) ABG DELIVERY (test code = Adult Vent VISH) ABG VENT MODE (test code = CPAP/PS MODEA) ABG PATIENT RESP RATE (test 0 /MIN 12-20 L code = RRPATA) ABG PRESSURE SUPPORT (test 12 cmH2O code = PSABG) ABG SITE (test code = R Radial SITEA) ALLENS TEST (test code = N/A ALLENS) POC IONIZED CALCIUM (test MMOL/L 1.15-1.33 code = POCCA) POC SAMPLE SOURCE (test Arterial Descript Specimen code = POCSAMPLE) BASIC METABOLIC [id number] 03:30:00 Test Item Value Reference Range Interpretation Comments SODIUM (test code = 138 mmol/L 137-145 N NA) POTASSIUM (test code 3.2 mmol/L 3.4-5.0 L = K) CHLORIDE (test code = 105 mmol/L 98-107 N CL) CARBON DIOXIDE (test 26 mmol/L 22-30 N code = CO2) GLUCOSE (test code = 148 mg/dL 74-106 H GLU) BLOOD UREA NITROGEN 61 mg/dL 9-20 H (test code = BUN) GLOMERULAR FILTRATION 40 >60 L The es timated RATE (test code = glomerular filtration GFR) rate is compute d usingpatient ra ce, age (>18), sex, and serum creatinine. If anyof the needed data elements are mi ssing the Laboratory cannot compute an kevin mation of the glomerul ar filtration rate . CREATININE (test code 2.4 mg/dL 0.7-1.3 H = CREAT) CALCIUM (test code = 7.3 mg/dL 8.4-10.2 L CA) CBC W/AUTO [id number] 03:18:00 Test Item Value Reference Range Interpretation Comments WHITE BLOOD CELL (test code = 9.3 x10 3/uL 5.0-12.0 N WBC) RED BLOOD CELL (test code = 3.77 x10 6/uL 4.70-6.10 L RBC) HEMOGLOBIN (test code = HGB) 10.8 g/dL 14.0-18.0 L HEMATOCRIT (test code = HCT) 34.6 % 37.0-49.0 L MEAN CELL VOLUME (test code = 92 fL 80-94 N MCV) MEAN CELL HGB (test code = MCH) 28.6 pg 27-31 N MEAN CELL HGB CONCENTRATION 31.2 g/dL 33-37 L (test code = MCHC) RED CELL DISTRIBUTION WIDTH 16.1 % 11.5-15.5 H (test code = RDW) PLATELET COUNT (test code = 215 x10 3/uL 130-400 N PLT) MEAN PLATELET VOLUME (test code 10.9 fL 9.4-16.4 N = MPV) NEUTROPHIL % (test code = NT%) 82.4 % 43-65 H IMMATURE GRANULOCYTE % (test 0.5 % 0.0-2.0 N code = IG%) LYMPHOCYTE % (test code = LY%) 7.8 % 20.5-45.5 L MONOCYTE % (test code = MO%) 8.7 % 5.5-11.7 N EOSINOPHIL % (test code = EO%) 0.5 % 0.9-2.9 L BASOPHIL % (test code = BA%) 0.1 % 0.2-1.0 L NUCLEATED RBC % (test code = 0.0 % 0-1.0 N NRBC%) NEUTROPHIL # (test code = NT#) 7.68 x10 3/uL 2.2-4.8 H IMMATURE GRANULOCYTE # (test 0.05 x10 3/uL 0-0.03 H code = IG#) LYMPHOCYTE # (test code = LY#) 0.73 x10 3/uL 1.3-2.9 L MONOCYTE # (test code = MO#) 0.81 x10 3/uL 0.3-0.8 H EOSINOPHIL # (test code = EO#) 0.05 x10 3/uL 0.0-0.2 N BASOPHIL # (test code = BA#) 0.01 x10 3/uL 0.0-0.1 N [id number] 00:13:00 Test Item Value Reference Range Interpretation Comments POTASSIUM (test code = K) 3.2 mmol/L 3.4-5.0 L [id number] 20:53:00 Test Item Value Reference Range Interpretation Comments GLUBED (test code = GLUBED) 71 MG/DL 74-106 L [id number] 18:05:00 Test Item Value Reference Range Interpretation Comments POTASSIUM (test code = K) 3.0 mmol/L 3.4-5.0 L [id number] 17:48:00 Test Item Value Reference Range Interpretation Comments GLUBED (test code = GLUBED) 101 MG/DL 74-106 N [id number] 17:47:00 Test Item Value Reference Range Interpretation Comments GLUBED (test code = GLUBED) 91 MG/DL 74-106 N [id number] 09:24:00 Test Item Value Reference Range Interpretation Comments POTASSIUM (test code = K) 3.2 mmol/L 3.4-5.0 L - XR CHEST 1 [id number] 07:09:00 [facility] 1985 Sex: M FAX: Derrick Yanes [phone] Constable: St: [facility] FAX: Edy Adame MD [phone] Name: JORGE GOINS [facility] [place] : 1985 Age/S: 34/M [address] Unit #: [id number] Loc: [address] [address] Phys: Derrick Gomez BRAZING MACHINE TENDER Acct: [id number] Dis Date: Status: ADM IN PHONE #: [phone] Exam Date: 06/23/2020 0410 FAX #: [phone] Reason: f/u intubated EXAMS: CPT CODE: [id number] XR CHEST 1 V 47541 EXAM: - XR CHEST 1 V LOCATION: C3 HISTORY: f/u intubated COMPARISON: 06/22/2020 FINDINGS: Single view of the chest. Indwelling lines and tubes are unchanged. Endotracheal tube tip is 5.7 cm above the rubina. No pneumothorax. Unchanged subsegmental atelectasis in the retrocardiac region. No effusions. Unchanged cardiomegaly. No acute osseous findings are present. IMPRESSION: Stable examination. at 0709 Reported and signed by: Denny Mohamud MD CC: Derrick Gomez BRAZING MACHINE TENDER; Edy Olmedo MD Technologist: TYRA CAT RT (R) Trnscrd Date/Time/By: 06/23/2020 (0709) : By: [email or web address] PAGE 1 Signed Report FAX: Derrick Yanes [phone] Constable: St: [facility] FAX: Edy Adame MD [phone] Name: JORGE GOINS [facility] [place] : 1985 Age/S: 34/M [address] Unit #: [id number] Loc: [place] [address] Phys: Derrick Gomez BRAZING MACHINE TENDER Acct: [id number] Dis Date: Status: ADM IN PHONE #: [phone] Exam Date: 06/23/2020 0410 FAX #: Reason: f/u intubated EXAMS: CPT CODE: [id number] XR CHEST 1 V 08649 (Continued) Orig Print D/T: S: 06/23/2020 (0712) PAGE 2 Signed ReportBASIC METABOLIC [id number] 04:52:00 Test Item Value Reference Range Interpretation Comments SODIUM (test code = 137 mmol/L 137-145 N NA) POTASSIUM (test code 3.3 mmol/L 3.4-5.0 L = K) CHLORIDE (test code = 104 mmol/L 98-107 N CL) CARBON DIOXIDE (test 24 mmol/L 22-30 N code = CO2) GLUCOSE (test code = 117 mg/dL 74-106 H GLU) BLOOD UREA NITROGEN 73 mg/dL 9-20 H (test code = BUN) GLOMERULAR FILTRATION 28 >60 L The es timated RATE (test code = glomerular filtration GFR) rate is compute d usingpatient ra ce, age (>18), sex, and serum creatinine. If anyof the needed data elements are mi ssing the Laboratory cannot compute an kevin mation of the glomerul ar filtration rate . CREATININE (test code 3.3 mg/dL 0.7-1.3 H = CREAT) CALCIUM (test code = 7.1 mg/dL 8.4-10.2 L CA) [id number] 04:52:00 Test Item Value Reference Range Interpretation Comments PHOSPHOROUS (test code = PHOS) 4.6 mg/dL 2.5-4.5 H [id number] 04:52:00 Test Item Value Reference Range Interpretation Comments MAGNESIUM (test code = MAG) 2.1 mg/dL 1.6-2.3 N CORTISOL [id number] 04:52:00 Test Item Value Reference Range Interpretation Comments CORTISOL AM (test 44.2 ug/dL code = CORTAM) 4. 46-22.7 ug/dLCORTISOL REFERENCE RANGE FOR SPECIMEN DRAWN BEFORE 10AM. BASIC METABOLIC [id number] 04:25:00 Test Item Value Reference Range Interpretation Comments SODIUM (test code = 137 mmol/L 137-145 N NA) POTASSIUM (test code 3.3 mmol/L 3.4-5.0 L = K) CHLORIDE (test code = 104 mmol/L 98-107 N CL) CARBON DIOXIDE (test 24 mmol/L 22-30 N code = CO2) GLUCOSE (test code = 117 mg/dL 74-106 H GLU) BLOOD UREA NITROGEN 73 mg/dL 9-20 H (test code = BUN) GLOMERULAR FILTRATION 28 >60 L The es timated RATE (test code = glomerular filtration GFR) rate is compute d usingpatient ra ce, age (>18), sex, and serum creatinine. If anyof the needed data elements are mi ssing the Laboratory cannot compute an kevin mation of the glomerul ar filtration rate . CREATININE (test code 3.3 mg/dL 0.7-1.3 H = CREAT) CALCIUM (test code = 7.1 mg/dL 8.4-10.2 L CA) [id number] 04:25:00 Test Item Value Reference Range Interpretation Comments PHOSPHOROUS (test code = PHOS) mg/dL 2.5-4.5 [id number] 04:25:00 Test Item Value Reference Range Interpretation Comments MAGNESIUM (test code = MAG) mg/dL 1.6-2.3 CORTISOL [id number] 04:25:00 Test Item Value Reference Range Interpretation Comments CORTISOL AM (test code = CORTAM) ug/dL BASIC METABOLIC [id number] 04:25:00 Test Item Value Reference Range Interpretation Comments SODIUM (test code = 137 mmol/L 137-145 N NA) POTASSIUM (test code 3.3 mmol/L 3.4-5.0 L = K) CHLORIDE (test code = 104 mmol/L 98-107 N CL) CARBON DIOXIDE (test 24 mmol/L 22-30 N code = CO2) GLUCOSE (test code = 117 mg/dL 74-106 H GLU) BLOOD UREA NITROGEN 73 mg/dL 9-20 H (test code = BUN) GLOMERULAR FILTRATION 28 >60 L The es timated RATE (test code = glomerular filtration GFR) rate is compute d usingpatient ra ce, age (>18), sex, and serum creatinine. If anyof the needed data elements are mi ssing the Laboratory cannot compute an kevin mation of the glomerul ar filtration rate . CREATININE (test code 3.3 mg/dL 0.7-1.3 H = CREAT) CALCIUM (test code = 7.1 mg/dL 8.4-10.2 L CA) [id number] 04:25:00 Test Item Value Reference Range Interpretation Comments PHOSPHOROUS (test code = PHOS) 4.6 mg/dL 2.5-4.5 H [id number] 04:25:00 Test Item Value Reference Range Interpretation Comments MAGNESIUM (test code = MAG) 2.1 mg/dL 1.6-2.3 N CORTISOL [id number] 04:25:00 Test Item Value Reference Range Interpretation Comments CORTISOL AM (test code = CORTAM) ug/dL CBC W/AUTO [id number] 04:06:00 Test Item Value Reference Range Interpretation Comments WHITE BLOOD CELL (test code = 10.7 x10 3/uL 5.0-12.0 N WBC) RED BLOOD CELL (test code = 3.93 x10 6/uL 4.70-6.10 L RBC) HEMOGLOBIN (test code = HGB) 11.5 g/dL 14.0-18.0 L HEMATOCRIT (test code = HCT) 35.4 % 37.0-49.0 L MEAN CELL VOLUME (test code = 90 fL 80-94 N MCV) MEAN CELL HGB (test code = MCH) 29.3 pg 27-31 N MEAN CELL HGB CONCENTRATION 32.5 g/dL 33-37 L (test code = MCHC) RED CELL DISTRIBUTION WIDTH 16.5 % 11.5-15.5 H (test code = RDW) PLATELET COUNT (test code = 224 x10 3/uL 130-400 N PLT) MEAN PLATELET VOLUME (test code 10.6 fL 9.4-16.4 N = MPV) NEUTROPHIL % (test code = NT%) 86.7 % 43-65 H IMMATURE GRANULOCYTE % (test 0.5 % 0.0-2.0 N code = IG%) LYMPHOCYTE % (test code = LY%) 5.0 % 20.5-45.5 L MONOCYTE % (test code = MO%) 7.6 % 5.5-11.7 N EOSINOPHIL % (test code = EO%) 0.1 % 0.9-2.9 L BASOPHIL % (test code = BA%) 0.1 % 0.2-1.0 L NUCLEATED RBC % (test code = 0.2 % 0-1.0 N NRBC%) NEUTROPHIL # (test code = NT#) 9.28 x10 3/uL 2.2-4.8 H IMMATURE GRANULOCYTE # (test 0.05 x10 3/uL 0-0.03 H code = IG#) LYMPHOCYTE # (test code = LY#) 0.53 x10 3/uL 1.3-2.9 L MONOCYTE # (test code = MO#) 0.81 x10 3/uL 0.3-0.8 H EOSINOPHIL # (test code = EO#) 0.01 x10 3/uL 0.0-0.2 N BASOPHIL # (test code = BA#) 0.01 x10 3/uL 0.0-0.1 N [id number] 03:45:00 Test Item Value Reference Range Interpretation Comments GLUBED (test code = GLUBED) 86 MG/DL 74-106 N POC ARTERIAL BLOOD [id number] 02:05:00 Test Item Value Reference Range Interpretation Comments POC ARTERIAL BLOOD GAS PH 7.47 pH units 7.35-7.45 H (test code = POCPHA) POC ARTERIAL BLOOD GAS PCO2 29.3 mmHg 35-48 LL (test code = QSGVYC0T) POC TCO2 ARTERIAL (test 22.0 mmol/L 22-29 N code = POCTCO2) POC ARTERIAL BLOOD GAS PO2 118.3 mmHg 83-108 H (test code = TPDPR5A) POC HCO3 ARTERIAL (test 21.1 mmol/L 21-28 N code = ECAUCB1Q) POC BASE EXCESS (test code -1.7 mmol/L -2-3 N = POCBEA) POC O2 SATURATION (test 98.9 % 94-98 H code = POCO2S) ARTERIAL FIO2 (test code = 30 % FIO2A) PaO2/FiO2 (test code = 394.33 mm/Hg OBB0XHZ0) ABG DELIVERY (test code = Adult Vent VISH) ABG VENT MODE (test code = ASSIST CONTROL MODEA) ABG PATIENT RESP RATE (test 16 /MIN - N code = RRPATA) ABG SITE (test code = R Radial SITEA) ALLENS TEST (test code = N/A ALLENS) POC IONIZED CALCIUM (test MMOL/L 1.15-1.33 code = POCCA) POC SAMPLE SOURCE (test Arterial Descript Specimen code = POCSAMPLE) Critical: Expected values Unspecified Dr (23-Jun-2002:03:33) [id number] 20:08:00 Test Item Value Reference Range Interpretation Comments GLUBED (test code = GLUBED) 80 MG/DL 74-106 N [id number] 12:57:00 Test Item Value Reference Range Interpretation Comments GLUBED (test code = GLUBED) 56 MG/DL 74-106 L [id number] 12:22:00 Test Item Value Reference Range Interpretation Comments GLUBED (test code = GLUBED) 176 MG/DL 74-106 H [id number] 12:22:00 Test Item Value Reference Range Interpretation Comments GLUBED (test code = GLUBED) 153 MG/DL 74-106 H [id number] 10:16:00 Test Item Value Reference Range Interpretation Comments TROPONIN-I 0.699 ng/mL 0.012-0.033 HH Critical Value reported (test code = toFirst Name:DV [id number] Last TROPI) Name:RESULTS RE AD BACK AND VERIFIEDby ANTELMO COHN, on 06/22/20, @ 1016. Please be advised of the updated reference ranges for the new Chemistry instrumentation . VITROS TROPO LISA I CRITERIANORM AL PATIENT W/O CIRCULATING TNI: 0.012-0.033 ng/ mLCIRCULATING TNI PRESENT: 0. 034-0.119 ng/mL(MAY BE AT RISK OF AMI)AMI DIAGNOS TIC CUTOFF: >/= 0.120 ng/mL~~~~~~~~~~ ~~~~~~~~~~~~~ ~~~~~~~~~~~~~~~ ~~~~~~~~~~~~~ ~~~~~~~~The use of serial sampling and te sting protocol is are commended practice.An perez vated troponin level alone is often not suffi cient fordiagnosis of myocardial infarction. Tro ponin results obtained by dif ferent assays may vary.Evalua tion of the extent of myoca rdial damage based onincreas e of troponin would be valid only if similarmethodol ogy is used.~~~~~~~~~~ ~~~~~~~~~~~~~ ~~~~~~~~~~~~~~~ ~~~~~~~~~~~~~ ~~~~~~~~ LACTIC [id number] 09:55:00 Test Item Value Reference Range Interpretation Comments LACTIC ACID (test code = LACT) 1.1 mmol/L 0.7-2.0 N [id number] 07:02:00 Test Item Value Reference Range Interpretation Comments GLUBED (test code = GLUBED) 99 MG/DL 74-106 N [id number] 06:49:00 Test Item Value Reference Range Interpretation Comments GLUBED (test code = GLUBED) 55 MG/DL 74-106 L [id number] 05:07:00 Test Item Value Reference Range Interpretation Comments GLUBED (test code = GLUBED) 55 MG/DL 74-106 L - XR CHEST 1 [id number] 05:01:00 [facility] 1985 Sex: M FAX: Derrick Yanes [phone] Constable: St: ADM FAX: Edy Adame MD [phone] Name: JORGE GOINS [facility] : 1985 Age/S: 34/M [address] Unit #: [id number] Loc: C.ICU1 [place] [address] 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 COMPARISON: June 21, 2020. FINDINGS: Single APview of the chest is provided. Endotracheal, central vascular catheter and nasogastric tubes are unchanged. Cardiomegaly. Descending aortic stent graft is present. Mild pulmonary vascular prominence. There is no definite consolidation, pleural effusion or pneumothorax. Limited exam. There is no significant change compared to previous exam. IMPRESSION: Support tubes and line are unchanged. Cardiomegaly. at 0501 Reported and signed by: Carloz Hayden MD CC: Derrick Gomez BRAZING MACHINE TENDER; Edy Olmedo MD Technologist: Regla ArmstrongRT (Brii) Trnscrd Date/Time/By: 06/22/2020 (0501) : By: [email or web address] PAGE 1 Signed Report FAX: Derrick Yanes [phone] Constable: St: ADM FAX: Edy Adame MD [phone] Name: PANJORGE R [facility] : 1985 Age/S: 34/M [address] Unit #: [id number] Loc: C.ICU[address] [place] [address] Phys: Derrick Gomez NP Acct: [id number] Dis Date: Status: ADM IN PHONE #: [phone] Exam Date: 06/22/2020429 FAX #:[phone] Reason: f/u intubated EXAMS: CPT CODE: [id number] XR CHEST 1 V 66099 (Continued) Orig Print D/T: S: 06/22/2020 (0504) PAGE 2 Signed ReportPOC ARTERIAL BLOOD [id number] 04:43:00 Test Item Value Reference Range Interpretation Comments POC ARTERIAL BLOOD GAS PH 7.39 pH units 7.35-7.45 N (test code = POCPHA) POC ARTERIAL BLOOD GAS PCO2 36.0 mmHg 35-48 N (test code = KKSKHG5B) POC TCO2 ARTERIAL (test 21.7 mmol/L 22-29 L code = POCTCO2) POC ARTERIAL BLOOD GAS PO2 107.3 mmHg 83-108 N (test code = PWJTI5J) POC HCO3 ARTERIAL (test 21.7 mmol/L 21-28 N code = FRLZJJ5E) POC BASE EXCESS (test code -2.9 mmol/L -2-3 L = POCBEA) POC O2 SATURATION (test 98.1 % 94-98 H code = POCO2S) ARTERIAL FIO2 (test code = 40 % FIO2A) PaO2/FiO2 (test code = 268.25 mm/Hg HDO0FXL8) ABG DELIVERY (test code = Adult Vent VISH) ABG VENT MODE (test code = VC MODEA) ABG PATIENT RESP RATE (test 16 /MIN 12-20 N code = RRPATA) ABG VENT RESP RATE (test 16 /MIN code = RRA) ABG SITE (test code = Art Line SITEA) ALLENS TEST (test code = N/A ALLENS) SODIUM (POC) (test code = 141 mmol/L 138-146 N NA/ABG) POTASSIUM (POC) (test code 3.7 mmol/L 3.5-4.5 N = K/ABG) POC IONIZED CALCIUM (test 0.97 MMOL/L 1.15-1.33 L code = POCCA) POC GLUCOSE (test code = 44 mg/dL 74-100 LL POCGLU) POC SAMPLE SOURCE (test Arterial Descript Specimen code = POCSAMPLE) LACTIC [id number] 03:39:00 Test Item Value Reference Range Interpretation Comments LACTIC ACID (test 2.6 mmol/L 0.7-2.0 HH Critical V alue reported code = LACT) toFirst Name: [id number] Last Name:MILLY MURPHY READ BACK AND RAMANA TrejoLAB.RD, on , @ 1555. BASIC METABOLIC [id number] 03:30:00 Test Item Value Reference Range Interpretation Comments SODIUM (test code = 138 mmol/L 137-145 N NA) POTASSIUM (test code 4.3 mmol/L 3.4-5.0 N = K) CHLORIDE (test code = 102 mmol/L 98-107 N CL) CARBON DIOXIDE (test 23 mmol/L 22-30 N code = CO2) GLUCOSE (test code = 83 mg/dL 74-106 N GLU) BLOOD UREA NITROGEN 76 mg/dL 9-20 H (test code = BUN) GLOMERULAR FILTRATION 28 >60 L The es timated RATE (test code = glomerular filtration GFR) rate is compute d usingpatient ra ce, age (>18), sex, and serum creatinine. If anyof the needed data elements are mi ssing the Laboratory cannot compute an kevin mation of the glomerul ar filtration rate . CREATININE (test code 3.3 mg/dL 0.7-1.3 H = CREAT) CALCIUM (test code = 7.6 mg/dL 8.4-10.2 L CA) [id number] 03:25:00 Test Item Value Reference Range Interpretation Comments GLUBED (test code = GLUBED) 86 MG/DL 74-106 N CBC W/AUTO [id number] 03:16:00 Test Item Value Reference Range Interpretation Comments WHITE BLOOD CELL (test code = 17.1 x10 3/uL 5.0-12.0 H WBC) RED BLOOD CELL (test code = 4.18 x10 6/uL 4.70-6.10 L RBC) HEMOGLOBIN (test code = HGB) 12.0 g/dL 14.0-18.0 L HEMATOCRIT (test code = HCT) 38.9 % 37.0-49.0 N MEAN CELL VOLUME (test code = 93 fL 80-94 N MCV) MEAN CELL HGB (test code = 28.7 pg 27-31 N MCH) MEAN CELL HGB CONCENTRATION 30.8 g/dL 33-37 L (test code = MCHC) RED CELL DISTRIBUTION WIDTH 16.3 % 11.5-15.5 H (test code = RDW) PLATELET COUNT (test code = 389 x10 3/uL 130-400 N PLT) MEAN PLATELET VOLUME (test 10.0 fL 9.4-16.4 N code = MPV) NEUTROPHIL % (test code = NT%) 83.4 % 43-65 H IMMATURE GRANULOCYTE % (test 0.7 % 0.0-2.0 N code = IG%) LYMPHOCYTE % (test code = LY%) 7.6 % 20.5-45.5 L MONOCYTE % (test code = MO%) 8.2 % 5.5-11.7 N EOSINOPHIL % (test code = EO%) 0.0 % 0.9-2.9 L BASOPHIL % (test code = BA%) 0.1 % 0.2-1.0 L NUCLEATED RBC % (test code = 0.6 % 0-1.0 N NRBC%) NEUTROPHIL # (test code = NT#) 14.22 x10 3/uL 2.2-4.8 H IMMATURE GRANULOCYTE # (test 0.12 x10 3/uL 0-0.03 H code = IG#) LYMPHOCYTE # (test code = LY#) 1.30 x10 3/uL 1.3-2.9 N MONOCYTE # (test code = MO#) 1.39 x10 3/uL 0.3-0.8 H EOSINOPHIL # (test code = EO#) 0.00 x10 3/uL 0.0-0.2 N BASOPHIL # (test code = BA#) 0.02 x10 3/uL 0.0-0.1 N [id number] 00:34:00 Test Item Value Reference Range Interpretation Comments GLUBED (test code = GLUBED) 169 MG/DL 74-106 H [id number] 00:32:00 Test Item Value Reference Range Interpretation Comments GLUBED (test code = GLUBED) 258 MG/DL 74-106 H DRUGS OF ABUSE [id number] 21:54:00 Test Item Value Reference Range Interpretation Comments UR COCAINE (test code = NEGATIVE NEGATIVE CUTO FF >/= 300 NG/ML COCAU) UR THC CANABINOIDS QL NEGATIVE NEGATIVE CUTOFF >/= 20 NG/ML SQN (test code = CANU) UR AMPHETAMINE QL SQN NEGATIVE NEGATIVE CUTOFF >/= 500 NG/ML (test code = AMPHU) UR BARBITURATE QUAL POSITIVE NEGATIVE A CUTOFF > /= 200 NG/ML (test code = BARBQLU) UR BENZODIAZEPINE (test NEGATIVE NEGATIVE CUTO FF >/= 200 NG/ML code = BENZU) UR OPIATES QUAL (test POSITIVE NEGATIVE A CUTOFF >/= 300 NG/ML code = OPIAQLU) UR PHENCYCLIDINE (PCP) NEGATIVE NEGATIVE CUTOF F >/= 25 NG/ML A (test code = PHENCU) Positiv e drug screen result provides only a "PreliminaryPos itive" test result.If a confirmation of positive result is necessary, a morespecific confirmatory te st must be ordered by the physician. Drug screens are per formed for medical (i. e. treatment)purpo ses only. Unconfirm ed screening resul ts must not beused for non-medical pur poses (e.g employment testing). [id number] 21:40:00 Test Item Value Reference Range Interpretation Comments TROPONIN-I 0.333 ng/mL 0.012-0.033 HH Critical Value reported (test code = Benignot Name:LUIS [id number] Last TROPI) Name:RESULTS RE AD BACK AND VERIFIEDby ANTELMO CORTES, on 06/21/20, @ 2140. Please be advised of the updated reference ranges for the new Chemistry instrumentation . VITROS TROPO LISA I CRITERIANORM AL PATIENT W/O CIRCULATING TNI: 0.012-0.033 ng/ mLCIRCULATING TNI PRESENT: 0. 034-0.119 ng/mL(MAY BE AT RISK OF AMI)AMI DIAGNOS TIC CUTOFF: >/= 0.120 ng/mL~~~~~~~~~~ ~~~~~~~~~~~~~ ~~~~~~~~~~~~~~~ ~~~~~~~~~~~~~ ~~~~~~~~The use of serial sampling and te sting protocol is are commended practice.An perez vated troponin level alone is often not suffi cient fordiagnosis of myocardial infarction. Tro ponin results obtained by dif ferent assays may vary.Evalua tion of the extent of myoca rdial damage based onincreas e of troponin would be valid only if similarmethodol ogy is used.~~~~~~~~~~ ~~~~~~~~~~~~~ ~~~~~~~~~~~~~~~ ~~~~~~~~~~~~~ ~~~~~~~~ LACTIC [id number] 21:37:00 Test Item Value Reference Range Interpretation Comments LACTIC ACID (test 6.2 mmol/L 0.7-2.0 HH Critical Value code = LACT) reported toFirs t Name:[id number] Kiara stephens Name:RESULTS RE AD BACK AND VERIFIEDby MICHAEL, on , @ 6756. Novel Coronavirus 19:07:00 Test Item Value Reference Range Interpretation Comments Novel Coronavirus Not Detected Not Detected Testing wa s performed 2018 Inhouse using the Aptim a (test code = SARS-CoV-2 assa y.This PUMGF44NT) nucleic acid amplification t est was developed and itsperformance characteristics determined by [facility]. Nucleic acid amplification t ests include PCRand TMA. This test has not be en FDA cleared or appr josé.This test has been a uthorized by FDA under an Emergency UseAuthorizatio n (EUA). This test is on ly authorized fort he duration of irving e the declaration vincenzo t circumstancesex ist justifying the authorization o f the emergency use o fin vitro diagnostic test s for detection of SA RS-CoV-2 virusand/or flores gnosis of COVID-19 infect ion under tpvwyqk601(b)(1 ) of the Act, 21 U.S.C. 360bbb-3(b) (1) , unless theauthorizatio n is terminated or r evoked sooner.When flores gnostic testing is nega tive, the possibility of afalse negative result should be considered in t he contextof a pat ient's recent exposure s and the presence ofclin ical signs and symptoms co nsistent with COVID-19. Anindividual wi thout symptoms of COV ID-19 and who is notshedd ing SARS-CoV-2 viru s would expect to have a negative(not de tected) result in this assay.Performed At: [facility] [address] [id number] Kyle L MD Ph:[phone] sitive results are ind icative of the presence of SARS-CoV-2 RNA, clinical c orrelation with patient hi storyand other diagnosti c information is necessary to determinepat ient infection statu s. Positive result s do not rule outbacteri al infection or co -infection with other viru ses. Negative result s do not preclude SARS-C oV-2 infection andsh ould not be used as the sole basis for patient managementdecis ions. Negative result s must be combined with otherclinical observations, p atient history, and epidemiological informatio n. Detection of SARS-CoV-2 RNA may be affected bysamp le collection meth ods, storage conditi ons, and/or stageof infection. Viral RNA mutat ions, vaccinations, antiviraltherap eutics, antibiotics, chemotherapeuti c orimmunosuppres sunshine drugs have not been e valuated for effectson d etection. Results are for the identification of SARS-CoV-2 RNA usingthe [employer] M2000 Sy stem under the FDA Emergen cy UseAuthorizatio n. The testing is perf ormed by ventura robins in the procedures for the [employer] M2000 molecular diagnostic SARS-CoV-2 assa y in vitro. - XR CHEST 1 [id number] 17:41:00 [facility] : 1985 Sex: M FAX: Edy Adame MD [phone] Constable: St: ADM Name: JORGE GOINS [facility] : 1985 Age/S: 34/M [address] Unit #: [id number] Loc: C.ICU1 [place] [address] Phys: Edy Olmedo MD Acct: [id number] Dis Date: Status: ADM IN PHONE #: [phone] Exam Date: 06/21/2020 1730 FAX #: [phone] Reason: CENTRAL LINE AND CATH PLACEMENT EXAMS: CPT CODE: [id number] XR CHEST 1 V 89123 AP VIEW OF THE CHEST LOCATION: R16 CLINICAL HISTORY: Central line placement. COMPARISON: Chest radiographs 5 hours earlier. FINDINGS: Cardiomegaly is present, with thoracoabdominal aortic stent graft in place. The lungsare grossly clear. No appreciable pleural fluids. No acute bony abnormality is found. The ET tube isunchanged, with the tip located approximately 4.5 cm above the rubina. An NG tube has been placed, with the distal portion coursing to the left abdomen. Right-sided central venous catheters are present, with the tips projecting over the superior vena cava. IMPRESSION: Interval placement of right-sidedcentral venous catheters, with the tips projecting over the superior vena cava. Interval placement of NG tube, with the distal portion coursing to the left abdomen. Unchanged ET tube. at 1741 Reported and signed by: Fátima Spears CC: Edy Olmedo MD Technologist: SHANEKA DOLL Trnscrd Date/Time/By: 06/21/2020 (1741) : By: LourdesJSL PAGE 1 Signed Report FAX: Edy Adame MD [phone] Constable: St: ADM Name: JORGE GOINS [facility] : 1985 Age/S: 34/M [address] Unit #: [id number] Loc: C.ICU1 [place] [address] Phys: Edy Olmedo MD Acct: [id number] Dis Date: Status: ADM IN PHONE #: [phone] Exam Date: 06/21/2020 1730 FAX #: Reason: CENTRAL LINE AND CATH PLACEMENT EXAMS: CPT CODE: [id number] XR CHEST 1 V 85474 (Continued) Orig Print D/T: S: 06/21/2020 (1745) PAGE 2 Signed Report- XR CHEST 1 [id number] 15:58:00 [facility] : 1985 Sex: M FAX: Y Edy Olmedo MD [phone] Constable: St: ADM Name: JORGE GOINS [facility] : 1985 Age/S: 34/M [address] Unit #: [id number] Loc: C.ICU1 [place] [address] Phys: Edy Olmedo MD Acct: [id number] Dis Date: Status: ADM IN PHONE #: [phone] Exam Date: 06/21/2020 1550 FAX #: [phone] Reason: OG TUBE PLACEMENT EXAMS: CPT CODE: [id number] XR CHEST 1 V 34290 EXAM: - XR CHEST 1 V Location code:C3 HISTORY: OG TUBE PLACEMENT COMPARISON: CT 06/21/2020 FINDINGS: 3 views of the abdomen demonstrate enteric tube tip projecting about the antrum of the stomach. Distended loops small bowel are present. IMPRESSION: As above. at 1558 Reported and signed by: Erick Vargas MD CC: Edy Olmedo MD Technologist: SHANEKA DOLL Trnscrd Date/Time/By: 06/21/2020 (1206) : By: LourdesCB5 PAGE 1 Signed Report FAX: Edy Adame MD [phone] Constable: St: ADM Name: JORGE GOINS Brii [facility] : 1985 Age/S: 34/M [address] Unit#: [id number] Loc: [address] [address] Phys: Edy Olmedo MD Acct: [id number] Dis Date: Status: ADM IN PHONE #: [phone] Exam Date: 06/21/2020 1550 FAX #: [phone] Reason: OG TUBE PLACEMENT EXAMS: CPT CODE: [id number] XR CHEST 1 V 55244 (Continued) Orig Print D/T: S: 06/21/2020 (1601) PAGE 2 Signed ReportLACTIC [id number] 15:38:00 Test Item Value Reference Range Interpretation Comments LACTIC ACID (test 11.2 mmol/L 0.7-2.0 HH Critical V alue reported code = LACT) toFirst Name:DV I8671 Last Name:MILLY MURPHY READ BACK AND RAMANA TrejoLAB.LAS1, on 06/21/20, @ 153 8. BASIC METABOLIC [id number] 15:38:00 Test Item Value Reference Range Interpretation Comments SODIUM (test code = 137 mmol/L 137-145 N NA) POTASSIUM (test code 4.8 mmol/L 3.4-5.0 N = K) CHLORIDE (test code = 101 mmol/L 98-107 N CL) CARBON DIOXIDE (test 12 mmol/L 22-30 L code = CO2) GLUCOSE (test code = 296 mg/dL 74-106 H GLU) BLOOD UREA NITROGEN 62 mg/dL 9-20 H (test code = BUN) GLOMERULAR FILTRATION 32 >60 L The es timated RATE (test code = glomerular filtration GFR) rate is compute d usingpatient ra ce, age (>18), sex, and serum creatinine. If anyof the needed data elements are mi ssing the Laboratory cannot compute an kevin mation of the glomerul ar filtration rate . CREATININE (test code 2.9 mg/dL 0.7-1.3 H = CREAT) CALCIUM (test code = 7.5 mg/dL 8.4-10.2 L CA) [id number] 15:38:00 Test Item Value Reference Range Interpretation Comments TROPONIN-I 0.206 ng/mL 0.012-0.033 HH Critical Value reported (test code = toFirst Name:KAYLEEN I8671 Last TROPI) Name:RESULTS RE AD BACK AND VERIFIEDby ANTELMO LLAMAS, on 06/21/20, @ 4959. Please be advised of the updated reference ranges for the new Chemistry instrumentation . VITROS TROPO LISA I CRITERIANORM AL PATIENT W/O CIRCULATING TNI: 0.012-0.033 ng/ mLCIRCULATING TNI PRESENT: 0. 034-0.119 ng/mL(MAY BE AT RISK OF AMI)AMI DIAGNOS TIC CUTOFF: >/= 0.120 ng/mL~~~~~~~~~~ ~~~~~~~~~~~~~ ~~~~~~~~~~~~~~~ ~~~~~~~~~~~~~ ~~~~~~~~The use of serial sampling and te sting protocol is are commended practice.An perez vated troponin level alone is often not suffi cient fordiagnosis of myocardial infarction. Tro ponin results obtained by dif ferent assays may vary.Evalua tion of the extent of myoca rdial damage based onincreas e of troponin would be valid only if similarmethodol ogy is used.~~~~~~~~~~ ~~~~~~~~~~~~~ ~~~~~~~~~~~~~~~ ~~~~~~~~~~~~~ ~~~~~~~~ - CT ANGIO [id number] 15:15:00 [facility] : 1985 Sex: M FAX: Wilfred Pereira MD R2 Constable: St: ADM FAX: Edy Adame MD [phone] Name: JORGE GOINS [facility] : 1985 Age/S: 34/M [address] Unit: [id number] Loc: C.ICU1 [place] [address] Phys: Wilfred Pereira MD R2 Acct: [id number] Dis Date: Status: ADM IN PHONE #: [phone] Exam Date: 06/21/2020 1504 FAX #: [phone] Reason: r/o ruptured aorta EXAMS: CPT CODE: [id number] CT ANGIO CHEST 44210 EXAM:- CTA ABD PEL W CONT, - CT ANGIO CHEST HISTORY: aortic dissection Location code:C3 TECHNIQUE: CT images of the chest, abdomen and pelvis were obtained with intravenous contrast utilizing CTA. Coronal and sagittal MIP images are provided. Automated exposure reduction (Auto mA/Smart mA) was utilized incompliance with ACR Image Wisely with DLP of 1449 mGy-cm. COMPARISON: 06/19/2020 FINDINGS: Vasculature: Air within venous vasculature is likely due to contrast injection. Again seen is stent graft in d escending thoracic aorta extending into the abdominal aorta with dissection of the descending thoracic aorta with extension into the abdominal aorta and the common iliac arteries and right internal iliac artery appearing similar. Enhancement in the excluded aortic lumen posterior to the stent about the abdominal region is again seen. There is no active extravasation of contrast. Cardiomegaly is present. No pulmonary embolus is seen. No periaortic hematoma is identified. Reflux of contrast into the IVC is present. The superior mesenteric, inferior mesenteric, and renal arteries are widely patent. 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 Stent within the right external iliac artery is present. CT CHEST: LUNGS: Patchy bilateral pulmonary opacities greatestin the lower lobes are present similar with prior exam. PLEURA: No pleural effusion or pneumothorax.TRACHEOBRONCHIAL TREE: Endotracheal tube tip is above the rubina. LYMPHATICS: There is no mediastinal, hilar, or axillary adenopathy. BONES: No acute osseous findings. SOFT TISSUES: Unremarkable. PAGE 1 Signed Report (CONTINUED) FAX: Wilfred Pereira MD R2 Constable: St: ADM FAX: Edy Adame MD [phone] Name: JORGE GOINS : 1985 Age/S: 34/M [address] Unit: [id number] Loc: C.ICU1 [place] [address] Phys: Wilfred Pereira MD R2 Acct: [id number] Dis Date: Status: ADM IN PHONE #: [phone] Exam Date: 06/21/2020 6852 FAX #: [phone] Reason: r/o ruptured aorta EXAMS: CPT CODE: [id number] CT ANGIO CHEST 02685 (Continued) OTHER: No significant additional findings. CT ABDOMEN AND PELVIS: Hepatobiliary: The liver is normal without focal lesion. Status post cholecystectomy. No biliary dilation. Pancreas: Normal. Spleen: Normal. Adrenals: Normal. Genitourinary: There is inflammatory change surrounding the kidneys. Evaluation of the bladder is limited, but no obvious bladder abnormality is present. Gastrointestinal: There is distended loops of bowel with air-fluid levels in loops of small bowel and distended loops of small bowel measuring up to 4.3 cm in size. On series 2 image [id number] seen within a loop of proximal small bowel in the left mid abdomen there is subtle hyperdensity present. On retrospective review, a small nodular area smaller than this may been present on noncontrast exam earlier in the day on series 3 image 45 although this is not definitive. Lymphatics: No enlarged lymph nodes by CT size criteria. Peritoneum/Other: No extraluminal air. Small amount of free fluid is present. Bones/Soft Tissues: No acute osseous findings. No ventral hernias. Coronal and sagittal MIP images confirm these findings. IMPRESSION: 1. Aortic stent graft traversing descending thoracicand abdominal aortic dissection is again seen with dissection extending into the common iliac and right internal iliac arteries. There is no active extravasation of contrast or periaortic hematoma. There continues to be contrast enhancement posterior to the stent but within the original lumen of the abdominal aorta in the excluded portion of the abdominal aorta. PAGE 2 Signed Report (CONTINUED) FAX: Wilfred Pereira MD R2 Constable: St: ADM FAX: Edy Adame MD [phone] Name: JORGE GOINS [facility] : 1985 Age/S: 34/M [address] Unit: [id number] Loc: C.ICU[address] [place] [address] Phys: Wilfred Pereira MD R2 Acct: [id number] Dis Date: Status: ADM IN PHONE #: [phone] Exam Date: 06/21/2020 1504 FAX #: [phone] Reason: r/o ruptured aorta EXAMS: CPT CODE: [id number] CT ANGIO CHEST 88999 (Continued) 2. Development of distended fluid- filled loops of small bowel concerning for obstruction measuring up to 4.3 cm in size with questionable area of increased density in a proximal loop of small bowel just the left of midline which could relate to ingested material. If there is decreasing hemoglobin or hematocrit, small bowel intestinal bleed is not excluded. 3. Right basilar pulmonary opacities with patchy bilateral pulmonary opacities is similar to prior exam concerning for bilateral pneumonia.Edema is not excluded given the cardiomegaly and reflux of contrast into the inferior vena cava. 4. Inflammatory change surrounding the kidneys is now present. Please correlate for acute renal insufficiency. 5. Other findings as above. Dr. Vargas called these findings to Dr. Kleber Newby on 06/21/2020 3:12 PM at 1515 Reportedand signed by: Erick Vargas MD CC: Wilfred Pereira MD; Edy Olmedo MD Technologist: JEREMIAH MARTINEZ Trnmtrd Dt/Tm: 06/21/2020 (1515) [email or web address] Orig Print D/T: S: 06/21/2020 (1519 PAGE 3 Signed Report- CTA ABD PEL W [id number] 15:15:00 [facility] : 1985 Sex: M FAX: Wilfred Pereira MD R2 Constable: St: ADM FAX: Edy Adame MD [phone] Name: TREMAYNE GOINSEME Brii [facility] : 1985 Age/S: 34/M [address] Unit: [id number] Loc: C.ICU1 [place] [address] Phys: Bisi Pereira R2 Acct: [id number] Dis Date: Status: ADM IN PHONE #: [phone] Exam Date: 06/21/2020 1504 FAX #: [phone] Reason: aortic dissection EXAMS: CPT CODE: [id number] CTA ABD PEL W CONT 11865 EXAM: - CTA ABD PEL W CONT, - CT ANGIO CHEST HISTORY: aortic dissection Location code:C3 TECHNIQUE: CT images of the chest, abdomen and pelvis were obtained with intravenous contrast utilizing CTA. Coronaland sagittal MIP images are provided. Automated exposure reduction (Auto mA/Smart mA) was utilized in compliance with ACR Image Wisely with DLP of 1449 mGy-cm. COMPARISON: 06/19/2020 FINDINGS: Vasculature: Air within venous vasculature is likely due to contrast injection. Again seen is stent graft in descending thoracic aorta extending into the abdominal aorta with dissection of the descending thoracic aorta with extension into the abdominal aorta and the common iliac arteries and right internal iliac artery appearing similar. Enhancement in the excluded aortic lumen posterior to the stent about the abdominal region is again seen. There is no active extravasation of contrast. Cardiomegaly is present. No pulmonary embolus is seen. No periaortic hematoma is identified. Reflux of contrast into the IVC is present. The superior mesenteric, inferior mesenteric, and renal arteries are widely patent. 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 Stent within the right external iliac artery is present. CT CHEST: LUNGS: Patchy bilateral pulmonary opacities greatest in the lower lobes are present similar with prior exam. PLEURA: No pleural effusion or pneumothorax. TRACHEOBRONCHIAL TREE: Endotracheal tube tip is above the rubina. LYMPHATICS: There is no mediastinal, hilar, or axillary adenopathy. BONES: No acute osseous findings. SOFT TISSUES: Unremarkable. PAGE1 Signed Report (CONTINUED) FAX: Wilfred Pereira MD R2 Constable: St: ADM FAX: Edy Adame MD [phone] Name: JORGE GOINS [facility] : 1985 Age/S: 34/M [address] Unit: [id number] Loc: C.ICU1 [place] [address] Phys: Wilfred Pereira MD R2 Acct: [id number] Dis Date: Status: ADM IN PHONE #: [phone] Exam Date: 06/21/2020 6320 FAX #: [phone] Reason: aortic dissection EXAMS: CPT CODE: [id number] CTA ABD PEL W CONT 99798 (Continued) OTHER: No significant additional findings. CT ABDOMEN ANDPELVIS: Hepatobiliary: The liver is normal without focal lesion. Status post cholecystectomy. No biliary dilation. Pancreas: Normal. Spleen: Normal. Adrenals: Normal. Genitourinary: There is inflammatory change surrounding the kidneys. Evaluation of the bladder is limited, but no obvious bladder abnormality is present. Gastrointestinal: There is distended loops of bowel with air-fluid levels in loops of small bowel and distended loops of small bowel measuring up to 4.3 cm in size. On series 2 [id number] is seen within a loop of proximal small bowel in the left mid abdomen there is subtle hyperde nsity present. On retrospective review, a small nodular area smaller than this may been present on noncontrast exam earlier in the day on series 3 image 45 although this is not definitive. Lymphatics: No enlarged lymph nodes by CT size criteria. Peritoneum/Other: No extraluminal air. Small amount of free fluid is present. Bones/Soft Tissues: No acute osseous findings. No ventral hernias. Coronal and sagittal MIP images confirm these findings. IMPRESSION: 1. Aortic stent graft traversing descending thoracic and abdominal aortic dissection is again seen with dissection extending into the common iliac and right internal iliac arteries. There is no active extravasation of contrast or periaortic hematoma. There continues to be contrast enhancement posterior to the stent but within the original lumen of the abdominal aorta in the excluded portion of the abdominal aorta. PAGE 2 Signed Report (CONTINUED) FAX: Wilfred Pereira MD R2 Constable: St: ADM FAX: Edy Adame MD [phone] Name: JORGE GOINS [facility] : 1985 Age/S: 34/M [address] Unit: [id number] Loc: C.ICU1 [place] [address] Phys: Wilfred Pereira MD R2 Acct: [id number] Dis Date: Status: ADM IN PHONE #: [phone] Exam Date: 06/21/20201504 FAX #: [phone] Reason: aortic dissection EXAMS: CPT CODE: [id number] CTA ABD PEL W CONT 97140 (Continued) 2. Development of distended fluid-filled loops of small bowel concerning for obstruction measuring up to 4.3 cm in size with questionable area of increased density in a proximal loop of s mall bowel just the left of midline which could relate to ingested material. If there is decreasinghemoglobin or hematocrit, small bowel intestinal bleed is not excluded. 3. Right basilar pulmonary opacities with patchy bilateral pulmonary opacities is similar to prior exam concerning for bilateral pneumonia. Edema is not excluded given the cardiomegaly and reflux of contrast into the inferior venacava. 4. Inflammatory change surrounding the kidneys is now present. Please correlate for acute renal insufficiency. 5. Other findings as above. Dr. Vargas called these findings to Dr. Kleber Newby on06/21/2020 3:12 PM at 1515 Reported and signed by: Erick Vargas MD CC: Wilfred Pereira MD; Edy Olmedo MD Technologist: JEREMIAH MARTINEZ Trnmtrd Dt/Tm: 06/21/2020 (1515) [email or web address] Orig Print D/T: S: 06/21/2020 (1519 PAGE 3 Signed ReportBASIC METABOLIC [id number] 15:08:00 Test Item Value Reference Range Interpretation Comments SODIUM (test code = 137 mmol/L 137-145 N NA) POTASSIUM (test code 4.8 mmol/L 3.4-5.0 N = K) CHLORIDE (test code = 101 mmol/L 98-107 N CL) CARBON DIOXIDE (test 12 mmol/L 22-30 L code = CO2) GLUCOSE (test code = 296 mg/dL 74-106 H GLU) BLOOD UREA NITROGEN 62 mg/dL 9-20 H (test code = BUN) GLOMERULAR FILTRATION 32 >60 L The es timated RATE (test code = glomerular filtration GFR) rate is compute d usingpatient ra ce, age (>18), sex, and serum creatinine. If anyof the needed data elements are mi ssing the Laboratory cannot compute an kevin mation of the glomerul ar filtration rate . CREATININE (test code 2.9 mg/dL 0.7-1.3 H = CREAT) CALCIUM (test code = 7.5 mg/dL 8.4-10.2 L CA) [id number] 15:08:00 Test Item Value Reference Range Interpretation Comments TROPONIN-I (test code = TROPI) ng/mL 0.012-0.033 CBC W/AUTO [id number] 14:50:00 Test Item Value Reference Range Interpretation Comments WHITE BLOOD CELL (test code = 19.0 x10 3/uL 5.0-12.0 H WBC) RED BLOOD CELL (test code = 3.78 x10 6/uL 4.70-6.10 L RBC) HEMOGLOBIN (test code = HGB) 11.2 g/dL 14.0-18.0 L HEMATOCRIT (test code = HCT) 35.6 % 37.0-49.0 L MEAN CELL VOLUME (test code = 94 fL 80-94 N MCV) MEAN CELL HGB (test code = 29.6 pg 27-31 N MCH) MEAN CELL HGB CONCENTRATION 31.5 g/dL 33-37 L (test code = MCHC) RED CELL DISTRIBUTION WIDTH 16.0 % 11.5-15.5 H (test code = RDW) PLATELET COUNT (test code = 352 x10 3/uL 130-400 N PLT) MEAN PLATELET VOLUME (test 10.6 fL 9.4-16.4 N code = MPV) NEUTROPHIL % (test code = NT%) 83.6 % 43-65 H IMMATURE GRANULOCYTE % (test 1.6 % 0.0-2.0 N code = IG%) LYMPHOCYTE % (test code = LY%) 11.2 % 20.5-45.5 L MONOCYTE % (test code = MO%) 3.4 % 5.5-11.7 L EOSINOPHIL % (test code = EO%) 0.0 % 0.9-2.9 L BASOPHIL % (test code = BA%) 0.2 % 0.2-1.0 N NUCLEATED RBC % (test code = 0.5 % 0-1.0 N NRBC%) NEUTROPHIL # (test code = NT#) 15.91 x10 3/uL 2.2-4.8 H IMMATURE GRANULOCYTE # (test 0.31 x10 3/uL 0-0.03 H code = IG#) LYMPHOCYTE # (test code = LY#) 2.12 x10 3/uL 1.3-2.9 N MONOCYTE # (test code = MO#) 0.64 x10 3/uL 0.3-0.8 N EOSINOPHIL # (test code = EO#) 0.00 x10 3/uL 0.0-0.2 N BASOPHIL # (test code = BA#) 0.03 x10 3/uL 0.0-0.1 N POC ARTERIAL BLOOD [id number] 14:05:00 Test Item Value Reference Range Interpretation Comments POC ARTERIAL BLOOD GAS PH 7.28 pH units 7.35-7.45 LL (test code = POCPHA) POC ARTERIAL BLOOD GAS PCO2 42.7 mmHg 35-48 N (test code = OMLXOV1Y) POC TCO2 ARTERIAL (test 20.3 mmol/L 22-29 L code = POCTCO2) POC ARTERIAL BLOOD GAS PO2 516.7 mmHg 83-108 H (test code = ZUKHM6O) POC HCO3 ARTERIAL (test 19.9 mmol/L 21-28 L code = QXVSOR0B) POC BASE EXCESS (test code -6.6 mmol/L -2-3 L = POCBEA) POC O2 SATURATION (test 100.0 % 94-98 H code = POCO2S) ARTERIAL FIO2 (test code = 100 % FIO2A) PaO2/FiO2 (test code = 516.70 mm/Hg [id number]) ABG DELIVERY (test code = Adult Vent VISH) ABG VENT MODE (test code = ASSIST CONTROL MODEA) ABG PATIENT RESP RATE (test 20 /MIN 12-20 N code = RRPATA) ABG SITE (test code = Art Line SITEA) ALLENS TEST (test code = N/A ALLENS) SODIUM (POC) (test code = 134 mmol/L 138-146 L NA/ABG) POTASSIUM (POC) (test code 5.7 mmol/L 3.5-4.5 H = K/ABG) POC IONIZED CALCIUM (test 0.93 MMOL/L 1.15-1.33 L code = POCCA) POC SAMPLE SOURCE (test Arterial Descript Specimen code = POCSAMPLE) Critical: Notify physician Dr Olmedo (21-Jun-20 13:50:08)Read back okLACTIC ACID 2020-06-21 12:30:00 Test Item Value Reference Range Interpretation Comments LACTIC ACID (test 9.6 mmol/L 0.7-2.0 HH Critical V alue reported code = LACT) toFirst Name: [id number] Last Name:[facility] READ BACK AND ERINLOBITO TrejoLAB.MH2, on 1 08/22/19, @ 1230. [id number] 12:18:00 Test Item Value Reference Range Interpretation Comments GLUBED (test code = GLUBED) 134 MG/DL 74-106 H - XR CHEST 1 [id number] 12:00:00 [facility] : 1985 Sex: M FAX: Wilfred Pereira MD R2 Constable: St: ADM FAX: Edy Adame MD [phone] Name: JORGE GOINS [facility] : 1985 Age/S: 34/M [address] Unit #: [id number] Loc: C.ICU1 [place] [address] Phys: Wilfred Pereira MD R2 Acct: [id number] Dis Date: Status: ADM IN PHONE #: [phone] Exam Date: 06/21/2020 1150 FAX #: [phone] Reason: sepsis EXAMS: CPT CODE: [id number] XR CHEST 1 V 02983 - XR CHEST 1 V INDICATION:Intubated, pneumonia LOCATION: T18 Comparison 06/20/2020 Interval placement of endotracheal tube, with tip 6.2 cm above rubina. The heart is enlarged. Aortic stent in aortic knob and descending thoracic aorta again noted. Slight increase in bilateral airspace infiltrates. No pneumothorax or significant effusion. IMPRESSION: 1. Endotracheal tube in satisfactory position. 2. Slight increase bilateral infiltrates. at 1200 Reported and signed by: Nish Llamas DO CC: Wilfred Pereira MD; Edy Olmedo MD Technologist: SHANEKA DOLL;MATHEW PRATT Trnmtrd Date/Time/By: 06/21/2020 (1200) : By: Leyda PAGE 1 Signed Report FAX: Wilfred Pereira MD R2 Constable: St: ADM FAX: Edy Adame MD [phone] Name: JORGE GOINS [facility] : 1985 Age/S: 34/M [address] Unit #: [id number] Loc: C.ICU1 [place] [address] Phys: Wilfred Pereira MDR2 Acct: [id number] Dis Date: Status: ADM IN PHONE #: [phone] Exam Date: 06/21/2020 1150 FAX #: [phone] Reason: sepsis EXAMS: CPT CODE: [id number] XR CHEST 1 V 12265 (Continued) Orig Print D/T: S: 06/21/2020 (9994) PAGE 2 Signed ReportCKMB 2020-06-21 09:31:00 Test Item Value Reference Range Interpretation Comments CKMB (test code = CKMBT) 2.71 ng/mL 0.5-5.0 BASIC METABOLIC [id number] 09:13:00 Test Item Value Reference Range Interpretation Comments SODIUM (test code = 135 mmol/L 137-145 L NA) POTASSIUM (test code 4.4 mmol/L 3.4-5.0 N = K) CHLORIDE (test code = 104 mmol/L 98-107 N CL) CARBON DIOXIDE (test 14 mmol/L 22-30 L code = CO2) GLUCOSE (test code = 125 mg/dL 74-106 H GLU) BLOOD UREA NITROGEN 64 mg/dL 9-20 H (test code = BUN) GLOMERULAR FILTRATION 35 >60 L The es timated RATE (test code = glomerular filtration GFR) rate is compute d usingpatient ra ce, age (>18), sex, and serum creatinine. If anyof the needed data elements are mi ssing the Laboratory cannot compute an kevin mation of the glomerul ar filtration rate . CREATININE (test code 2.7 mg/dL 0.7-1.3 H = CREAT) CALCIUM (test code = 8.4 mg/dL 8.4-10.2 N CA) [id number] 09:13:00 Test Item Value Reference Range Interpretation Comments MAGNESIUM (test code = MAG) 2.4 mg/dL 1.6-2.3 H CARDIAC ENZYMES [id number] 09:13:00 Test Item Value Reference Range Interpretation Comments TROPONIN-I 0.118 ng/mL 0.012-0.033 H (test code = TROPI) Please be a dvised of the updated referen ce ranges for the new [employer] ry instrumentation . VITROS TROPO LISA I CRITERIANORM AL PATIENT W/O CIRCULATING TNI: 0.012-0.033 ng/ mLCIRCULATING TNI PRESENT: 0. 034-0.119 ng/mL(MAY BE AT RISK OF AMI)AMI DIAGNOS TIC CUTOFF: >/= 0.120 ng/mL~~~~~~~~~~ ~~~~~~~~~~~~~ ~~~~~~~~~~~~~~~ ~~~~~~~~~~~~~ ~~~~~~~~The use of serial sampling and te sting protocol is are commended practice.An perez vated troponin level alone is often not suffi cient fordiagnosis of myocardial infarction. Tro ponin results obtained by dif ferent assays may vary.Evalua tion of the extent of myoca rdial damage based onincreas e of troponin would be valid only if similarmethodol ogy is used.~~~~~~~~~~ ~~~~~~~~~~~~~ ~~~~~~~~~~~~~~~ ~~~~~~~~~~~~~ ~~~~~~~~ LACTIC [id number] 09:05:00 Test Item Value Reference Range Interpretation Comments LACTIC ACID (test 4.9 mmol/L 0.7-2.0 HH Critical V alue reported code = LACT) toFirst Name:KAYLEEN [id number] Last Name:MILLY MURPHY READ BACK AND RAMANA TrejoLAB.MH2, on 1 08/22/19, @ 09. [id number] 09:03:00 Test Item Value Reference Range Interpretation Comments AMMONIA (test code = AMM) 15 umol/L 9-30 N BASIC METABOLIC [id number] 09:03:00 Test Item Value Reference Range Interpretation Comments SODIUM (test code = 135 mmol/L 137-145 L NA) POTASSIUM (test code 4.4 mmol/L 3.4-5.0 N = K) CHLORIDE (test code = 104 mmol/L 98-107 N CL) CARBON DIOXIDE (test 14 mmol/L 22-30 L code = CO2) GLUCOSE (test code = 125 mg/dL 74-106 H GLU) BLOOD UREA NITROGEN 64 mg/dL 9-20 H (test code = BUN) GLOMERULAR FILTRATION 35 >60 L The es timated RATE (test code = glomerular filtration GFR) rate is compute d usingpatient ra ce, age (>18), sex, and serum creatinine. If anyof the needed data elements are mi ssing the Laboratory cannot compute an kevin mation of the glomerul ar filtration rate . CREATININE (test code 2.7 mg/dL 0.7-1.3 H = CREAT) CALCIUM (test code = 8.4 mg/dL 8.4-10.2 N CA) [id number] 09:03:00 Test Item Value Reference Range Interpretation Comments MAGNESIUM (test code = MAG) 2.4 mg/dL 1.6-2.3 H CARDIAC ENZYMES [id number] 09:03:00 Test Item Value Reference Range Interpretation Comments TROPONIN-I (test code = TROPI) ng/mL 0.012-0.033 LIVER FUNCTION [id number] 09:03:00 Test Item Value Reference Range Interpretation Comments TOTAL PROTEIN (test 6.1 g/dL 6.3-8.2 L code = PROT) ALBUMIN (test code = 2.9 g/dL 3.5-5.0 L ALB) BILIRUBIN TOTAL 1.3 mg/dL 0.2-1.3 N "A positive bias may (test code = BILT) occur for patients taking Eltrombo pag(a bone marrow sti mulant used to treat thrombocytopeni a andaplastic ane ezequiel)." BILIRUBIN CONJUGATED 0 mg/dL 0-0.3 N "A posi tive bias may (test code = BILCON) occur f or patients taking Eltrombo pag(a bone marrow sti mulant used to treat thrombocytopeni a andaplastic ane ezequiel)." CON JUGATED BILIRUBIN IS TH E REPLACEMENT ASS AY FOR DIRECTBILIRUBIN . BILIRUBIN 0.4 mg/dL 0-1.1 N UNCONJUGATED (test code = BILUNC) SGOT/AST (test code 332 U/L 15-46 H = AST) SGPT/ALT (test code 198 U/L 0-34 H = ALT) ALKALINE PHOSPHATASE 89 U/L 38-126 N (test code = ALKP) Spec Comments: ADD TO SPECIMEN IN LABBASIC METABOLIC [id number] 09:02:00 Test Item Value Reference Range Interpretation Comments SODIUM (test code = 135 mmol/L 137-145 L NA) POTASSIUM (test code 4.4 mmol/L 3.4-5.0 N = K) CHLORIDE (test code = 104 mmol/L 98-107 N CL) CARBON DIOXIDE (test 14 mmol/L 22-30 L code = CO2) GLUCOSE (test code = 125 mg/dL 74-106 H GLU) BLOOD UREA NITROGEN 64 mg/dL 9-20 H (test code = BUN) GLOMERULAR FILTRATION 35 >60 L The es timated RATE (test code = glomerular filtration GFR) rate is compute d usingpatient ra ce, age (>18), sex, and serum creatinine. If anyof the needed data elements are mi ssing the Laboratory cannot compute an kevin mation of the glomerul ar filtration rate . CREATININE (test code 2.7 mg/dL 0.7-1.3 H = CREAT) CALCIUM (test code = 8.4 mg/dL 8.4-10.2 N CA) [id number] 09:02:00 Test Item Value Reference Range Interpretation Comments MAGNESIUM (test code = MAG) mg/dL 1.6-2.3 CARDIAC ENZYMES [id number] 09:02:00 Test Item Value Reference Range Interpretation Comments TROPONIN-I (test code = TROPI) ng/mL 0.012-0.033 CBC W/AUTO [id number] 08:54:00 Test Item Value Reference Range Interpretation Comments WHITE BLOOD CELL (test code = 17.0 x10 3/uL 5.0-12.0 H WBC) RED BLOOD CELL (test code = 3.86 x10 6/uL 4.70-6.10 L RBC) HEMOGLOBIN (test code = HGB) 11.4 g/dL 14.0-18.0 L HEMATOCRIT (test code = HCT) 34.9 % 37.0-49.0 L MEAN CELL VOLUME (test code = 90 fL 80-94 N MCV) MEAN CELL HGB (test code = 29.5 pg 27-31 N MCH) MEAN CELL HGB CONCENTRATION 32.7 g/dL 33-37 L (test code = MCHC) RED CELL DISTRIBUTION WIDTH 15.9 % 11.5-15.5 H (test code = RDW) PLATELET COUNT (test code = 339 x10 3/uL 130-400 N PLT) MEAN PLATELET VOLUME (test 10.4 fL 9.4-16.4 N code = MPV) NEUTROPHIL % (test code = NT%) 87.6 % 43-65 H IMMATURE GRANULOCYTE % (test 0.8 % 0.0-2.0 N code = IG%) LYMPHOCYTE % (test code = LY%) 7.0 % 20.5-45.5 L MONOCYTE % (test code = MO%) 4.5 % 5.5-11.7 L EOSINOPHIL % (test code = EO%) 0.0 % 0.9-2.9 L BASOPHIL % (test code = BA%) 0.1 % 0.2-1.0 L NUCLEATED RBC % (test code = 0.2 % 0-1.0 N NRBC%) NEUTROPHIL # (test code = NT#) 14.83 x10 3/uL 2.2-4.8 H IMMATURE GRANULOCYTE # (test 0.14 x10 3/uL 0-0.03 H code = IG#) LYMPHOCYTE # (test code = LY#) 1.19 x10 3/uL 1.3-2.9 L MONOCYTE # (test code = MO#) 0.77 x10 3/uL 0.3-0.8 N EOSINOPHIL # (test code = EO#) 0.00 x10 3/uL 0.0-0.2 N BASOPHIL # (test code = BA#) 0.02 x10 3/uL 0.0-0.1 N - CT ABD PELVIS W/O [id number] 07:01:00 [facility] 1985 Sex: M FAX: Edy Adame MD [phone] Constable: St: ADM FAX: Pineda Andersen Name: JORGE GOINS [facility] : 1985 Age/S: 34/M [address] Unit: [id number] Loc: C.[address] [address] Phys: Stevie Andersen MD R2 Acct: [id number] Dis Date: Status: ADM IN PHONE #: [phone] Exam Date: 06/21/2020 0547 FAX #: [phone] Reason: HYPOTENSION, AAA EXAMS: CPT CODE: [id number] CT ABD PELVIS W/O CONT 24504 EXAM: - CT ABD PELVIS W/O CONT HISTORY: 34-year-old male with hypotension; abdominal aortic aneurysm LOCATION: R16 COMPARISON: Abdominal CT 06/19/2020. TECHNIQUE: 5 mm contiguous axial images were obtained from the diaphragmatic dome through the symphysis pubis. No contrast was administered. Automated exposure reduction (Auto mA/Smart mA) was utilized in compliance with ACR Image Wisely with DLP of 937 mGy-cm. FINDINGS: Thoracic: Cardiomegaly is present. Small patchy densities in the bilateral lower lobes may reflect developing pneumonia, minimally improved since 06/19/2020. The thoracoabdominal aortic stent graft is similar in appearance. Hepatobiliary: The liver is normal without focal lesion. The gallbladder has been resected. No biliary dilation. Pancreas: Normal. Spleen: Normal. Adrenals: Normal. Genitourinary: The kidneys are unchanged. No evidence of hydronephrosis. The urinary bladder is filled with excreted contrast. Gastrointestinal: Fluid-filled small bowel loops are present, compatible with ileus. There is no evidence of bowel obstruction or perienteric inflammation. The appendix is normal. Vascular: No evidence of aneurysm or dissection. Lymphatics: No enlarged lymph nodes by CT size criteria. Bones/Soft Tissues: No acute osseous findings. No ventral hernias. PAGE 1 Signed Report (CONTINUED) FAX: Edy Adame MD [phone] Constable: St: ADM FAX: Pineda Andersen Name: JORGE GOINS [facility] : 1985 Age/S: 34/M [address] Unit: [id number] Loc: C.ICU1 [place] [address] Phys: Stevie Andersen MD R2 Acct: [id number] Dis Date: Status: ADM IN PHONE #: [phone] Exam Date: 06/21/2020 0547 FAX #: [phone] Reason: HYPOTENSION, AAA EXAMS: CPT CODE: [id number] CT ABD PELVIS W/O CONT 19530 (Continued) Peritoneum/Other: No extraluminal air. No extraluminal fluid. IMPRESSION: No free fluid in the abdomen or pelvis to suggest stent graft leakage or rupture. Unchanged appearance of the thoracoabdominal aortic stent graft and the right external iliac stent graft. at 0701 Reported and signed by:Fátmia Spears CC: Edy Olmedo MD; Stevie Santo MD Technologist: Bowen Randhawa Trnscrd Dt/Tm: 06/21/2020 (700) t.[email or web address].JAKYL Orig Print D/T: S: 06/21/2020 (0704 PAGE 2 Signed Report- CT HEAD/BRAIN W/O [id number] 06:49:00 [facility] : 1985 Sex: M FAX: Derrick Yanes [phone] Constable: St: ADM FAX: Edy Adame MD [phone] Name: TREMAYNE GOINSROBINA Teresa [facility] : 1985 Age/S: 34/M [address] Unit: [id number] Loc: C.ICU[address] [place] [address] Phys: Derrick Gomez BRAZING MACHINE TENDER Acct: [id number] Dis Date: Status: ADM IN PHONE #: [phone] Exam Date: 06/21/2020 0547 FAX #: [phone] Reason: ams EXAMS: CPT CODE: [id number] CT HEAD/BRAIN W/O [id number] EXAM: - CT HEAD/BRAIN W/O CONT LOCATION: R16 HISTORY: 34-year-old male with ams TECHNIQUE: Axial CT images from the skull base to the vertex without intravenous contrast. Coronal and sagittal reformatted images were created from the data set. One or more of the following dose reduction techniques were used: Automated exposure control, adjustment of the mA and/or kV according to patient size, and/or utilization of iterative reconstruction technique. DLP: 680 mGy-cm. COMPARISON: Head CT 11/19/2019 and 05/16/2015 FINDINGS: Intracranial: Periventricular white matter changes are compatible with chronic microvascular ischemic injuries. Faint radiodensities in the bilateral basal ganglia are unchanged since 11/19/2019 and 05/16/2015, compatible with benign calcifications. No evidence of acute infarction, intracranial hemorrhage, mass or mass effect, or abnormal extra-axial fluid collection. The ventricular system and sulci are age appropriate. The density in the larger dural sinuses is grossly normal. Bones: There is no evidence of acute displaced calvarial fracture. Sinuses: The visualized portions of the paranasal sinuses demonstrate no significant opacification.The mastoid air cells are clear. Orbits/Soft Tissues: The visualized orbits show no significant abnormalities. The visualized soft tissues are unremarkable. IMPRESSION: No acute intracranial hemorrhage. Mild chronic microvascular ischemic injuries. Faint calcifications in the bilateral basal ganglia, essentially PAGE 1 Signed Report (CONTINUED) FAX: Derrick Yanes [phone] Constable: St: ADM FAX: Edy Adame MD [phone] Name: JORGE GOINS [facility] : 1985 Age/S: 34/M [address] Unit: [id number] Loc: C.ICU1 [place] [address] Phys: Derrick Gomez BRAZING MACHINE TENDER Acct: [id number] Dis Date: Status: ADM IN PHONE #: [phone] Exam Date: 06/21/2020 0547 FAX #: [phone] Reason: ams EXAMS: CPT CODE: [id number] CT HEAD/BRAIN W/O CONT 59224 (Continued) unchanged since 05/16/2015. at 0649 Reported and signed by: Fátima Spears CC: Derrick Gomez BRAZING MACHINE TENDER; Edy Olmedo MD Technologist: Bowen Ulrich; Alyssa Randhawa Trnscrd Dt/Tm: 06/21/2020 (0649) Ramesh OrigPrint D/T: S: 06/21/2020 (0652 PAGE 2 Signed ReportT4 FREE 2020-06-21 04:31:00 Test Item Value Reference Range Interpretation Comments T4 FREE (test code = T4F) 1.70 ng/dL 0.78-2.19 N BASIC METABOLIC [id number] 04:19:00 Test Item Value Reference Range Interpretation Comments SODIUM (test code = 132 mmol/L 137-145 L NA) POTASSIUM (test code 5.8 mmol/L 3.4-5.0 H IS THE SAMPLE = K) HEMOLYZED?:SONU MOLYSIS GRADE:NO CHLORIDE (test code = 102 mmol/L 98-107 N CL) CARBON DIOXIDE (test 8 mmol/L 22-30 LL Critica l Value code = CO2) reported toFirs t Name:[id number] [facility] Name:RESULTS RE AD BACK AND VERIFIEDby C.LAB.WR, on , @ 0330. GLUCOSE (test code = 89 mg/dL 74-106 N GLU) BLOOD UREA NITROGEN 57 mg/dL 9-20 H (test code = BUN) GLOMERULAR FILTRATION 34 >60 L The es timated RATE (test code = glomerular filtration GFR) rate is compute d usingpatient ra ce, age (>18), sex, and serum creatinine. If anyof the needed data elements are mi ssing the Laboratory cannot compute an kevin mation of the glomerul ar filtration rate . CREATININE (test code 2.8 mg/dL 0.7-1.3 H = CREAT) CALCIUM (test code = 8.0 mg/dL 8.4-10.2 L CA) [id number] 04:19:00 Test Item Value Reference Range Interpretation Comments MAGNESIUM (test code = MAG) 2.5 mg/dL 1.6-2.3 H VITAMIN [id number] 04:19:00 Test Item Value Reference Range Interpretation Comments VITAMIN B12 (test code = VITB12) 732 pg/mL 239-931 N TSH REFLEX TO [id number] 04:19:00 Test Item Value Reference Range Interpretation Comments TSH REFLEX TO FT4 7.590 MIU/L 0.465-4.68 H (test code = TSHREFLEX) *A positive bias m ay occur for patie nts taking BIOTINsupplemen ts. CARDIAC ENZYMES [id number] 04:19:00 Test Item Value Reference Range Interpretation Comments TROPONIN-I 0.115 ng/mL 0.012-0.033 H (test code = TROPI) Please be a dvised of the updated referen ce ranges for the new [employer] ry instrumentation . VITROS TROPO LISA I CRITERIANORM AL PATIENT W/O CIRCULATING TNI: 0.012-0.033 ng/ mLCIRCULATING TNI PRESENT: 0. 034-0.119 ng/mL(MAY BE AT RISK OF AMI)AMI DIAGNOS TIC CUTOFF: >/= 0.120 ng/mL~~~~~~~~~~ ~~~~~~~~~~~~~ ~~~~~~~~~~~~~~~ ~~~~~~~~~~~~~ ~~~~~~~~The use of serial sampling and te sting protocol is are commended practice.An perez vated troponin level alone is often not suffi cient fordiagnosis of myocardial infarction. Tro ponin results obtained by dif ferent assays may vary.Evalua tion of the extent of myoca rdial damage based onincreas e of troponin would be valid only if similarmethodol ogy is used.~~~~~~~~~~ ~~~~~~~~~~~~~ ~~~~~~~~~~~~~~~ ~~~~~~~~~~~~~ ~~~~~~~~ [id number] 04:01:00 Test Item Value Reference Range Interpretation Comments CKMB (test code = CKMBT) 2.01 ng/mL 0.5-5.0 N BASIC METABOLIC [id number] 04:01:00 Test Item Value Reference Range Interpretation Comments SODIUM (test code = 132 mmol/L 137-145 L NA) POTASSIUM (test code 5.8 mmol/L 3.4-5.0 H IS THE SAMPLE = K) HEMOLYZED?:SONU MOLYSIS GRADE:NO CHLORIDE (test code = 102 mmol/L 98-107 N CL) CARBON DIOXIDE (test 8 mmol/L 22-30 LL Critica l Value code = CO2) reported toFirs t Name:[id number] [facility] Name:RESULTS RE AD BACK AND VERIFIEDby C.LAB.WR, on , @ 0330. GLUCOSE (test code = 89 mg/dL 74-106 N GLU) BLOOD UREA NITROGEN 57 mg/dL 9-20 H (test code = BUN) GLOMERULAR FILTRATION 34 >60 L The es timated RATE (test code = glomerular filtration GFR) rate is compute d usingpatient ra ce, age (>18), sex, and serum creatinine. If anyof the needed data elements are mi ssing the Laboratory cannot compute an kevin mation of the glomerul ar filtration rate . CREATININE (test code 2.8 mg/dL 0.7-1.3 H = CREAT) CALCIUM (test code = 8.0 mg/dL 8.4-10.2 L CA) [id number] 04:01:00 Test Item Value Reference Range Interpretation Comments MAGNESIUM (test code = MAG) 2.5 mg/dL 1.6-2.3 H VITAMIN [id number] 04:01:00 Test Item Value Reference Range Interpretation Comments VITAMIN B12 (test code = VITB12) pg/mL 239-931 TSH REFLEX TO [id number] 04:01:00 Test Item Value Reference Range Interpretation Comments TSH REFLEX TO FT4 7.590 MIU/L 0.465-4.68 H (test code = TSHREFLEX) *A positive bias m ay occur for patie nts taking BIOTINsupplemen ts. CARDIAC ENZYMES [id number] 04:01:00 Test Item Value Reference Range Interpretation Comments TROPONIN-I 0.115 ng/mL 0.012-0.033 H (test code = TROPI) Please be a dvised of the updated referen ce ranges for the new [employer] ry instrumentation . VITROS TROPO LISA I CRITERIANORM AL PATIENT W/O CIRCULATING TNI: 0.012-0.033 ng/ mLCIRCULATING TNI PRESENT: 0. 034-0.119 ng/mL(MAY BE AT RISK OF AMI)AMI DIAGNOS TIC CUTOFF: >/= 0.120 ng/mL~~~~~~~~~~ ~~~~~~~~~~~~~ ~~~~~~~~~~~~~~~ ~~~~~~~~~~~~~ ~~~~~~~~The use of serial sampling and te sting protocol is are commended practice.An perez vated troponin level alone is often not suffi cient fordiagnosis of myocardial infarction. Tro ponin results obtained by dif ferent assays may vary.Evalua tion of the extent of myoca rdial damage based onincreas e of troponin would be valid only if similarmethodol ogy is used.~~~~~~~~~~ ~~~~~~~~~~~~~ ~~~~~~~~~~~~~~~ ~~~~~~~~~~~~~ ~~~~~~~~ BASIC METABOLIC [id number] 03:42:00 Test Item Value Reference Range Interpretation Comments SODIUM (test code = 132 mmol/L 137-145 L NA) POTASSIUM (test code 5.8 mmol/L 3.4-5.0 H IS THE SAMPLE = K) HEMOLYZED?:SONU MOLYSIS GRADE:NO CHLORIDE (test code = 102 mmol/L 98-107 N CL) CARBON DIOXIDE (test 8 mmol/L 22-30 LL Critica l Value code = CO2) reported toFirs t Name:[id number] [facility] Name:RESULTS RE AD BACK AND VERIFIEDby C.LAB.WR, on , @ 0330. GLUCOSE (test code = 89 mg/dL 74-106 N GLU) BLOOD UREA NITROGEN 57 mg/dL 9-20 H (test code = BUN) GLOMERULAR FILTRATION 34 >60 L The es timated RATE (test code = glomerular filtration GFR) rate is compute d usingpatient ra ce, age (>18), sex, and serum creatinine. If anyof the needed data elements are mi ssing the Laboratory cannot compute an kevin mation of the glomerul ar filtration rate . CREATININE (test code 2.8 mg/dL 0.7-1.3 H = CREAT) CALCIUM (test code = 8.0 mg/dL 8.4-10.2 L CA) [id number] 03:42:00 Test Item Value Reference Range Interpretation Comments MAGNESIUM (test code = MAG) 2.5 mg/dL 1.6-2.3 H VITAMIN [id number] 03:42:00 Test Item Value Reference Range Interpretation Comments VITAMIN B12 (test code = VITB12) pg/mL 239-931 TSH REFLEX TO [id number] 03:42:00 Test Item Value Reference Range Interpretation Comments TSH REFLEX TO FT4 (test code = MIU/L 0.465-4.68 TSHREFLEX) CARDIAC ENZYMES [id number] 03:42:00 Test Item Value Reference Range Interpretation Comments TROPONIN-I 0.115 ng/mL 0.012-0.033 H (test code = TROPI) Please be a dvised of the updated referen ce ranges for the new [employer] ry instrumentation . VITROS TROPO LISA I CRITERIANORM AL PATIENT W/O CIRCULATING TNI: 0.012-0.033 ng/ mLCIRCULATING TNI PRESENT: 0. 034-0.119 ng/mL(MAY BE AT RISK OF AMI)AMI DIAGNOS TIC CUTOFF: >/= 0.120 ng/mL~~~~~~~~~~ ~~~~~~~~~~~~~ ~~~~~~~~~~~~~~~ ~~~~~~~~~~~~~ ~~~~~~~~The use of serial sampling and te sting protocol is are commended practice.An perez vated troponin level alone is often not suffi cient fordiagnosis of myocardial infarction. Tro ponin results obtained by dif ferent assays may vary.Evalua tion of the extent of myoca rdial damage based onincreas e of troponin would be valid only if similarmethodol ogy is used.~~~~~~~~~~ ~~~~~~~~~~~~~ ~~~~~~~~~~~~~~~ ~~~~~~~~~~~~~ ~~~~~~~~ [id number] 03:34:00 Test Item Value Reference Range Interpretation Comments AMMONIA (test code = 45 umol/L 9-30 HH Critic al Value AMM) reported Beingno t Name:[id number] [facility] Name:RESULTS RE AD BACK AND VERIFIEDby C.LAB.WR, on , @ 0334. BASIC METABOLIC [id number] 03:30:00 Test Item Value Reference Range Interpretation Comments SODIUM (test code = 132 mmol/L 137-145 L NA) POTASSIUM (test code 5.8 mmol/L 3.4-5.0 H IS THE SAMPLE = K) HEMOLYZED?:SONU MOLYSIS GRADE:NO CHLORIDE (test code = 102 mmol/L 98-107 N CL) CARBON DIOXIDE (test 8 mmol/L 22-30 LL Critica l Value code = CO2) reported [employer] Name:[id number] [facility] Name:RESULTS RE AD BACK AND VERIFIEDby C.LAB.WR, on , @ 0330. GLUCOSE (test code = 89 mg/dL 74-106 N GLU) BLOOD UREA NITROGEN 57 mg/dL 9-20 H (test code = BUN) GLOMERULAR FILTRATION 34 >60 L The es timated RATE (test code = glomerular filtration GFR) rate is compute d usingpatient ra ce, age (>18), sex, and serum creatinine. If anyof the needed data elements are mi ssing the Laboratory cannot compute an kevin mation of the glomerul ar filtration rate . CREATININE (test code 2.8 mg/dL 0.7-1.3 H = CREAT) CALCIUM (test code = 8.0 mg/dL 8.4-10.2 L CA) [id number] 03:30:00 Test Item Value Reference Range Interpretation Comments MAGNESIUM (test code = MAG) 2.5 mg/dL 1.6-2.3 H VITAMIN [id number] 03:30:00 Test Item Value Reference Range Interpretation Comments VITAMIN B12 (test code = VITB12) pg/mL 239-931 TSH REFLEX TO [id number] 03:30:00 Test Item Value Reference Range Interpretation Comments TSH REFLEX TO FT4 (test code = MIU/L 0.465-4.68 TSHREFLEX) CARDIAC ENZYMES [id number] 03:30:00 Test Item Value Reference Range Interpretation Comments TROPONIN-I (test code = TROPI) ng/mL 0.012-0.033 LACTIC [id number] 03:30:00 Test Item Value Reference Range Interpretation Comments LACTIC ACID (test 8.5 mmol/L 0.7-2.0 HH Critical V alue reported code = LACT) toFirst Name:JONNATHAN [id number] Last Name:[facility] JEFFREY READ BACK AND RAMANA TrejoLAB.WR, on , @ 0330. PROTHROMBIN [id number] 03:20:00 Test Item Value Reference Range Interpretation Comments PROTHROMBIN TIME 22.8 SECONDS 9.2-12.1 H PATIENT (test code = PTP) INTERNATIONAL NORMAL 2.0 The INR is to be used RATIO (test code = only for monitoring INR) ORAL ANTICOAGULANTTH ERAPY. Indication INR Value1. Prophylaxis/jaxon atment of: Venous Thro mbosis, Pulmonary Embol ism 2.0 - 3.02. Prevent ion of systemic emboli sm from: Tissue he art valves 2.0 - 3. 0 Acute myocardial infa rction (to present sys temic embolism)* 2.0 - 3.0 Valvular heart disease 2.0 - 3.0 Atria l fibrillation 2. 0 - 3.03. Mechanica l prosthetic valv es (high risk) 2.5 - 3.5 * If oral anticoagulant t herapy is elected to preventrecurren t myocardial infa rction, an INR of 2.5-3 .5 isrecommended, consistent with Food and Drug Administrationr ecommen dations. CBC W/AUTO [id number] 03:13:00 Test Item Value Reference Range Interpretation Comments WHITE BLOOD CELL (test code = 16.5 x10 3/uL 5.0-12.0 H WBC) RED BLOOD CELL (test code = 3.68 x10 6/uL 4.70-6.10 L RBC) HEMOGLOBIN (test code = HGB) 10.7 g/dL 14.0-18.0 L HEMATOCRIT (test code = HCT) 34.7 % 37.0-49.0 L MEAN CELL VOLUME (test code = 94 fL 80-94 N MCV) MEAN CELL HGB (test code = 29.1 pg 27-31 N MCH) MEAN CELL HGB CONCENTRATION 30.8 g/dL 33-37 L (test code = MCHC) RED CELL DISTRIBUTION WIDTH 15.9 % 11.5-15.5 H (test code = RDW) PLATELET COUNT (test code = 347 x10 3/uL 130-400 N PLT) MEAN PLATELET VOLUME (test 10.6 fL 9.4-16.4 N code = MPV) NEUTROPHIL % (test code = NT%) 88.4 % 43-65 H IMMATURE GRANULOCYTE % (test 0.8 % 0.0-2.0 N code = IG%) LYMPHOCYTE % (test code = LY%) 6.9 % 20.5-45.5 L MONOCYTE % (test code = MO%) 3.8 % 5.5-11.7 L EOSINOPHIL % (test code = EO%) 0.0 % 0.9-2.9 L BASOPHIL % (test code = BA%) 0.1 % 0.2-1.0 L NUCLEATED RBC % (test code = 0.3 % 0-1.0 N NRBC%) NEUTROPHIL # (test code = NT#) 14.54 x10 3/uL 2.2-4.8 H IMMATURE GRANULOCYTE # (test 0.13 x10 3/uL 0-0.03 H code = IG#) LYMPHOCYTE # (test code = LY#) 1.14 x10 3/uL 1.3-2.9 L MONOCYTE # (test code = MO#) 0.63 x10 3/uL 0.3-0.8 N EOSINOPHIL # (test code = EO#) 0.00 x10 3/uL 0.0-0.2 N BASOPHIL # (test code = BA#) 0.02 x10 3/uL 0.0-0.1 N POC ARTERIAL BLOOD [id number] 02:20:00 Test Item Value Reference Range Interpretation Comments POC ARTERIAL BLOOD GAS PH 7.36 pH units 7.35-7.45 N (test code = POCPHA) POC ARTERIAL BLOOD GAS PCO2 18.7 mmHg 35-48 LL (test code = [id number]) POC TCO2 ARTERIAL (test 11.2 mmol/L 22-29 L code = POCTCO2) POC ARTERIAL BLOOD GAS PO2 258.6 mmHg 83-108 H (test code = OISYO9M) POC HCO3 ARTERIAL (test 10.7 mmol/L 21-28 L code = CKZMOI9S) POC BASE EXCESS (test code -12.6 mmol/L -2-3 L = POCBEA) POC O2 SATURATION (test 99.9 % 94-98 H code = POCO2S) ARTERIAL FIO2 (test code = 100 % FIO2A) PaO2/FiO2 (test code = 258.60 mm/Hg QMQ2KCH5) ABG DELIVERY (test code = Bagging VISH) ABG SITE (test code = R Radial SITEA) ALLENS TEST (test code = Positive ALLENS) SODIUM (POC) (test code = 131 mmol/L 138-146 L NA/ABG) POTASSIUM (POC) (test code 5.7 mmol/L 3.5-4.5 H = K/ABG) POC IONIZED CALCIUM (test 1.03 MMOL/L 1.15-1.33 L code = POCCA) POC GLUCOSE (test code = 89 mg/dL 74-100 N POCGLU) POC SAMPLE SOURCE (test Arterial Descript Specimen code = POCSAMPLE) Critical: Notify RN [place] (21-Jun-20 02:18:30) Read [id number] 01:27:00 Test Item Value Reference Range Interpretation Comments GLUBED (test code = GLUBED) 113 MG/DL 74-106 H [id number] 01:14:00 Test Item Value Reference Range Interpretation Comments GLUBED (test code = GLUBED) 134 MG/DL 74-106 H [id number] 23:14:00 Test Item Value Reference Range Interpretation Comments GLUBED (test code = GLUBED) 139 MG/DL 74-106 H - XR CHEST 1 [id number] 06:42:00 [facility] 1985 Sex: M FAX: Edy Adame MD [phone] Constable: St: ADM FAX: Debora Brooks MD R1 Name: JORGE GOINS [facility] : 1985 Age/S: 34/M [address] Unit #: [id number] Loc: [address] [address] Phys: Yemi Brooks R1 Acct: [id number] Dis Date: Status: ADM IN PHONE #: [phone] Exam Date: 06/20/2020 0405 FAX #: [phone] Reason: pneumonia, aortic dissection EXAMS: CPT CODE: [id number] XR CHEST 1 V 39283 AP VIEW OF THE CHEST LOCATION: R16 CLINICAL HISTORY: Pneumonia. COMPARISON: Chest radiographs 06/19/2020 and 02/27/2020. FINDINGS: Cardiomegaly is present, with an aortic stent extending from the arch to the abdominal aorta. Right basilar opacity is redemonstrated, unchanged, possibly atelectasis or developing pneumonia. The lungs are otherwise grossly clear. No appreciable pleural fluids. No acute bony abnormality is found. IMPRESSION: Cardiomegaly, unchanged. Minimal right basilar atelectasis versus developing pneumonia. at 0642 Reported and signed by: Fátima Spears CC: Edy Olmedo MD; Debora Brooks MD Technologist: JOSS TANNER TrnscrdDate/Time/By: 06/20/2020 (2478) : By: Whitney.JSL PAGE 1 Signed Report FAX: Edy Adame MD [phone] Constable: St: ADM FAX: Debora Brooks MD R1 Name: JORGE GOINS [facility] : 1985 Age/S: 34/M [address] Unit #: [id number] Loc: [address] [address] Phys: Debora Brooks MD R1 Acct: [id number] Dis Date: Status: ADM IN PHONE #: [phone] Exam Date: 06/20/2020404 FAX #: [phone] Reason:pneumonia, aortic dissection EXAMS: CPT CODE: [id number] XR CHEST 1 V 31821 (Continued) Orig Print D/T: S: 06/20/2020 (0645) PAGE 2 Signed ReportCOMPREHENSIVE METABOLIC [id number] 05:25:00 Test Item Value Reference Range Interpretation Comments SODIUM (test code = 136 mmol/L 137-145 L NA) POTASSIUM (test code 4.4 mmol/L 3.4-5.0 N = K) CHLORIDE (test code 101 mmol/L 98-107 N = CL) CARBON DIOXIDE (test 23 mmol/L 22-30 N code = CO2) GLUCOSE (test code = 137 mg/dL 74-106 H GLU) BLOOD UREA NITROGEN 48 mg/dL 9-20 H (test code = BUN) GLOMERULAR 47 >60 L The estimated FILTRATION RATE glomerular f iltration (test code = GFR) rate is co mputed usingpatient ra ce, age (>18), sex, and serum creatinine. If anyof the needed data elements are mi ssing the Laboratory cannot compute an kevin mation of the glomerul ar filtration rate . CREATININE (test 2.1 mg/dL 0.7-1.3 H code = CREAT) TOTAL PROTEIN (test 6.2 g/dL 6.3-8.2 L code = PROT) ALBUMIN (test code = 2.9 g/dL 3.5-5.0 L ALB) CALCIUM (test code = 8.0 mg/dL 8.4-10.2 L CA) BILIRUBIN TOTAL 0.8 mg/dL 0.2-1.3 N "A positive bias may (test code = BILT) occur for patients taking Eltrombo pag(a bone marrow sti mulant used to treat thrombocytopeni a andaplastic ane ezequiel)." BILIRUBIN CONJUGATED 0 mg/dL 0-0.3 N "A posi tive bias may (test code = BILCON) occur f or patients taking Eltrombo pag(a bone marrow sti mulant used to treat thrombocytopeni a andaplastic ane ezequiel)." C ONJUGATE D BILIRUBIN IS THE REPLACEMENT ASS AY FOR DIRECTBILIRUBIN . BILIRUBIN 0.3 mg/dL 0-1.1 N UNCONJUGATED (test code = BILUNC) SGOT/AST (test code 112 U/L 15-46 H = AST) SGPT/ALT (test code 100 U/L 0-34 H = ALT) ALKALINE PHOSPHATASE 88 U/L 38-126 N (test code = ALKP) [id number] 05:25:00 Test Item Value Reference Range Interpretation Comments PHOSPHOROUS (test code = PHOS) 4.0 mg/dL 2.5-4.5 N [id number] 05:25:00 Test Item Value Reference Range Interpretation Comments MAGNESIUM (test code = MAG) 2.0 mg/dL 1.6-2.3 N C REACTIVE [id number] 05:25:00 Test Item Value Reference Range Interpretation Comments C REACTIVE PROTEIN (test code = 51.3 mg/L 0-9 H CRP) LACTIC [id number] 05:15:00 Test Item Value Reference Range Interpretation Comments LACTIC ACID (test code = LACT) 1.7 mmol/L 0.7-2.0 N [id number] 05:14:00 Test Item Value Reference Range Interpretation Comments D-DIMER (test 5238 ng/mLFEU 0-500 HH Critical Valu e reported code = toFirst Name:MERVAT [id number] Last DDIMER) Name:RESULTS RE AD BACK AND VERIFIEDby ANTELMO HERNANDEZ, on 06/20/20, @ 051 4.THE DDIMER METHOD IS USED IN THE EXCLUSION OF DE EP VEINTHROMBOSIS AND/OR PULMONARY EMBOL ISM AND THE CLINICAL CUT-OF F VALUE FOR EXCLUSION (500 NG/ML FEU) OF THESE CONDIT IONSIS VALIDATED BY [facility] WHITE SHOE EXAMINER OF THE METHOD. A NEGATIVE DDIM ER RESULT WHEN COMBINED W ITH A CLINICALASSESSM ENT OF LOW PRETEST PROBABI LITY HAS BEEN SHOWN TO H AVEA HIGH NEGATIVE PREDIC TIVE VALUE OF DVT OR PE. D -DIMER VALUES >500 ng/ mL ARE NOT DIAGNOSTIC FOR DVT,PEOR DIC WITHOUT OTHER C ONFIRMATORY TESTS AND APPROPRIATECLIN ICAL EVALUATIONS. CBC W/AUTO [id number] 05:00:00 Test Item Value Reference Range Interpretation Comments WHITE BLOOD CELL (test code = 9.6 x10 3/uL 5.0-12.0 N WBC) RED BLOOD CELL (test code = 3.60 x10 6/uL 4.70-6.10 L RBC) HEMOGLOBIN (test code = HGB) 10.6 g/dL 14.0-18.0 L HEMATOCRIT (test code = HCT) 33.4 % 37.0-49.0 L MEAN CELL VOLUME (test code = 93 fL 80-94 N MCV) MEAN CELL HGB (test code = MCH) 29.4 pg 27-31 N MEAN CELL HGB CONCENTRATION 31.7 g/dL 33-37 L (test code = MCHC) RED CELL DISTRIBUTION WIDTH 15.4 % 11.5-15.5 N (test code = RDW) PLATELET COUNT (test code = 289 x10 3/uL 130-400 N PLT) MEAN PLATELET VOLUME (test code 10.8 fL 9.4-16.4 N = MPV) NEUTROPHIL % (test code = NT%) 87.7 % 43-65 H IMMATURE GRANULOCYTE % (test 0.3 % 0.0-2.0 N code = IG%) LYMPHOCYTE % (test code = LY%) 6.9 % 20.5-45.5 L MONOCYTE % (test code = MO%) 5.0 % 5.5-11.7 L EOSINOPHIL % (test code = EO%) 0.0 % 0.9-2.9 L BASOPHIL % (test code = BA%) 0.1 % 0.2-1.0 L NUCLEATED RBC % (test code = 0.0 % 0-1.0 N NRBC%) NEUTROPHIL # (test code = NT#) 8.42 x10 3/uL 2.2-4.8 H IMMATURE GRANULOCYTE # (test 0.03 x10 3/uL 0-0.03 N code = IG#) LYMPHOCYTE # (test code = LY#) 0.66 x10 3/uL 1.3-2.9 L MONOCYTE # (test code = MO#) 0.48 x10 3/uL 0.3-0.8 N EOSINOPHIL # (test code = EO#) 0.00 x10 3/uL 0.0-0.2 N BASOPHIL # (test code = BA#) 0.01 x10 3/uL 0.0-0.1 N POC ARTERIAL BLOOD [id number] 04:33:00 Test Item Value Reference Range Interpretation Comments POC ARTERIAL BLOOD GAS PH 7.41 pH units 7.35-7.45 N (test code = POCPHA) POC ARTERIAL BLOOD GAS PCO2 34.9 mmHg 35-48 L (test code = [id number]) POC TCO2 ARTERIAL (test 22.0 mmol/L 22-29 N code = POCTCO2) POC ARTERIAL BLOOD GAS PO2 102.2 mmHg 83-108 N (test code = PHHRW1Y) POC HCO3 ARTERIAL (test 22.0 mmol/L 21-28 N code = NLOVLY0D) POC BASE EXCESS (test code -2.2 mmol/L -2-3 L = POCBEA) POC O2 SATURATION (test 98.0 % 94-98 N code = POCO2S) ARTERIAL FIO2 (test code = 2 % FIO2A) PaO2/FiO2 (test code = 5110.00 mm/Hg [id number]) ABG DELIVERY (test code = Cannula VISH) ABG SITE (test code = R Radial SITEA) ALLENS TEST (test code = Positive ALLENS) SODIUM (POC) (test code = 133 mmol/L 138-146 L NA/ABG) POTASSIUM (POC) (test code 4.5 mmol/L 3.5-4.5 N = K/ABG) POC IONIZED CALCIUM (test 1.11 MMOL/L 1.15-1.33 L code = POCCA) POC GLUCOSE (test code = 145 mg/dL 74-100 H POCGLU) POC SAMPLE SOURCE (test Arterial Descript Specimen code = POCSAMPLE) [id number] 19:52:00 Test Item Value Reference Range Interpretation Comments GLUBED (test code = GLUBED) 129 MG/DL 74-106 H [id number] 16:48:00 Test Item Value Reference Range Interpretation Comments GLUBED (test code = GLUBED) 145 MG/DL 74-106 H LIPID PROFILE (CORONARY RISK)2020-06-19 08:40:00 Test Item Value Reference Range Interpretation Comments TRIGLYCERIDES (test 102 mg/dL TRIGLYCE RIDES code = TRIG) REFERENCE RANGE:Normal: < 150 mg/dLBorderline High: 150-199 mg/dLHi gh: 200-499 mg/dLVe ry High: >=500 mg/ dL CHOLESTEROL (test 117 mg/dL CHOLESTERO L REFERENCE code = CHOL) RANGE:DESIRABLE : < 200 mg/dLBORDER LINE: 200-239 mg/dLHI GH: >=240 mg/dL HDL CHOLESTEROL (test 27 mg/dL 40-59 L code = HDL) LIPOPROTEIN LDL (test 52.00 mg/dL 32-99 N code = LDLC) CORONARY RISK FACTOR 4.33 CHOL/H DL RISK MALE: (test code = RISK) 1/2 AVG 3 .43 FEMALE: 1/2 AVG 3.27 AV G 4.97 AVG 4.44 2X AVG 9.55 2X AVG 7.05 3X AVG 23.39 3X AVG 11.04~~~~~~~~~~ ~~~~~~ ~~~~~~~~~~~~~~~ ~~~~~~ ~~~~~~~~~~~~~~~ ~~~~~~ ~~National Cholesterol Edu cation (NCEP) Guidelines:~~~~ ~~~~~~ ~~~~~~~~~~~~~~~ ~~~~~~ ~~~~~~~~~~~~~~~ ~~~~~~ ~~~~~~~~ HDL Cholesterol<4 0mg/dL : HDL Cholester ol (Major risk fac tor for CHD)>60mg/d L: HDL Cholesterol (Ne gative risk factor for CHD)40-59mg/dL: Borderline Risk LDL Cholesterol<1 00mg/d L: Desirable LD L-C dtkdzmkurjptx04 0-159m g/dL: Borderlin e High Risk LDL-C ftjnwqfbvxaty11 0-189m g/dL: High risk LDL-C concentration H DL-LDL Cholesterol is affected by a n umber of factors such as smoking, age an d sex.~~~~~~~~~~~ ~~~~~~ ~~~~~~~~~~~~~~~ ~~~~~~ ~~~~~~~~~~~~~~~ ~~~~~~ ~ LIPID PROFILE (CORONARY RISK)2020-06-19 08:34:00 Test Item Value Reference Range Interpretation Comments TRIGLYCERIDES (test 102 mg/dL TRIGLYCE RIDES code = TRIG) REFERENCE RANGE:Normal: < 150 mg/dLBorderline High: 150-199 mg/dLHi gh: 200-499 mg/dLVe ry High: >=500 mg/ dL CHOLESTEROL (test code 117 mg/dL TAYLA STEROL REFERENCE = CHOL) RANGE:DESIRABLE : < 200 mg/dLBORDERLINE : 200-239 mg/dLHI GH: >=240 mg/dL HDL CHOLESTEROL (test 27 mg/dL 40-59 L code = HDL) LIPOPROTEIN LDL (test mg/dL 32-99 code = LDLC) CORONARY RISK FACTOR 4.33 CHOL/H DL RISK MALE: (test code = RISK) 1/2 AVG 3 .43 FEMALE: 1/2 AVG 3.27 AV G 4.97 AVG 4.44 2X AVG 9.55 2X AVG 7.05 3X AVG 23.39 3X AVG 11.04~~~~~~~~~~ ~~~~~~~ ~~~~~~~~~~~~~~~ ~~~~~~~ ~~~~~~~~~~~~~~~ ~~~~~~N ational Cholest beryl Education (NCEP ) Guidelines:~~~~ ~~~~~~~ ~~~~~~~~~~~~~~~ ~~~~~~~ ~~~~~~~~~~~~~~~ ~~~~~~~ ~~~~~ HDL Cholesterol<4 0mg/dL: HDL Cholesterol (Major risk factor for CHD)>60mg/dL: H DL Cholesterol (Ne gative risk factor for CHD)40-59mg/dL: Borderline Risk LDL Cholesterol<1 00mg/dL : Desirable LDL -C odgyijedtbzjy05 0-159mg /dL: Borderline High Risk LDL-C eqiuindgakpks12 0-189mg /dL: High risk LDL-C concentration H DL-LDL Cholesterol is affected by a n umber of factors such as smoking, age an d sex.~~~~~~~~~~~ ~~~~~~~ ~~~~~~~~~~~~~~~ ~~~~~~~ ~~~~~~~~~~~~~~~ ~~~~~ - CTA ABD PEL W [id number] 06:32:00 [facility] [place] : 1985 Sex: M Constable: St: REG -- Name: JORGE GOINS : 1985 Age/S: 34/M [address] Unit: [id number] Loc: [place] [address] Phys: Manuel Cortez DO Acct: [id number] Dis Date: Status: REG ER PHONE #: [phone] Exam Date: 06/19/2020 0531 FAX #: [phone] Reason: cp/hx AAA EXAMS: CPT CODE: [id number] CTA ABD PEL W CONT 85671 EXAMINATION: - CT ANGIO CHEST, - CTA ABD PEL W CONT LOCATION: H61 CLINICAL HISTORY/INDICATION: cp/hx AAA COMPARISON: CT 02/27/2020. TECHNIQUE: Helical CT of the chest, abdomen andpelvis was acquired with intravenous contrast utilizing the CTA protocol. Images were reconstructed in the axial, sagittal and coronal planes. Maximum intensity projection images were also constructed on a separate workstation and submitted for interpretation. This examination was performed according to our departmental dose optimization program, which includes automated exposure control, adjustment of the mA and/or kV according to patient size, and/or use of iterative reconstruction technique. FINDINGS: CHEST VASCULATURE: There is stable mild dilatation of the ascending thoracic aorta measures 3.9cm. A vascular stent extending from the mid aortic arch to the infrarenal abdominal aorta is again seen. The descending thoracic aorta and abdominal aorta are stable in size. 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 A stent within the right external iliac artery is patent. There is no para-aortic edema or fat stranding to suggest infection or rupture. There are no filling defects seen within the main or proximal segmental pulmonary arteries. LINES/TUBES/DEVICE: None. LUNGS AND AIRWAYS: There are multiple small nodular infiltrates throughout the bilateral lower lobes. There are mild patchy groundglass opacities throughout the bilateral lower lobes. A few small nodules are present within the lingula. There is no consolidation. There is no mass. PLEURA: No pneumothorax or pleural effusion. THYROID GLAND: Normal. PAGE 1 Signed Report (CONTINUED) Constable: St: REG------- Name: JORGE GOINS [place] : 1985 Age/S: 34/M [address] Unit: [id number] Loc: [place] [address] Phys: Manuel Cortez DO Acct: [id number] Dis Date: Status: REG ER PHONE #: [phone] Exam Date: 08/20/2019 0550 FAX #: [phone] Reason: cp/hx AAA EXAMS: CPT CODE: [id number] CTA ABD PEL W CONT 65059 (Continued) HEART AND MEDIASTINUM: Heart is enlarged without pericardial effusion.. Esophagus appears normal. ADENOPATHY: None. EXTERNAL SOFT TISSUE: No abnormalities. ABDOMEN AND PELVIS VASCULATURE: Stent within the thoracic and abdominal aorta as described above. 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 A stent within the right external iliac artery is patent. The bilateral common femoral arteries are patent. Dissection within the right internal iliac artery is unchanged. The celiac artery, SMA, bilateral main renal arteries and ABIMAEL are patent LIVER: No focal hepatic lesions or intrahepatic biliary dilatation. GALLBLADDER/BILIARY SYSTEM: Cholecystectomy. PANCREAS: Unremarkable. SPLEEN: No splenomegaly or focal lesions. ADRENALS: No adrenal nodules. KIDNEYS/URETERS: No hydronephrosis, stones, or solid mass lesions. LYMPH NODES: No lymphadenopathy. PERITONEUM / RE TROPERITONEUM: No free air or fluid. Resolution of left-sided retroperitoneal hematoma with minimal residual fat stranding. BOWEL: No small bowel obstruction, colitis or bowel wall thickening. The appendix is normal. GENITOURINARY ORGANS: Unremarkable. FLUID/FREE AIR: NONE. URINARY BLADDER: Unremarkable. PAGE 2 Signed Report (CONTINUED) Constable: St: REG Name: JORGE GOINS [facility] [place] : 1985 Age/S: 34/M [address] Unit: [id number] Loc: [place] [address] Phys: Manuel Cortez DO Acct: [id number] Dis Date: Status: REG ER PHONE #: [phone] Exam Date: 06/19/2020 0531 FAX #: [phone] Reason: cp/hx AAA EXAMS: CPT CODE: [id number] CTA ABD PEL W CONT 99946 (Continued) EXTERNAL SOFT TISSUE: No abdominal wall hematoma or hernia. REGIONAL OSSEOUS STRUCTURES: Intact. IMPRESSION: 1. Unchanged appearance of the thoracoabdominal aortic stent graft without evidence of aortic rupture or graft infection. 2. 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 The right external iliac artery stent is patent. 3. Multiple groundglass and nodular infiltrates throughout the bilateral lower lobes are compatible with pneumonia. at 0632 Reported and signed by: Cheli Alfaro MD CC: Technologist: OLIVIA Rayo Trnscrd Dt/Tm: 06/19/2020 (0632) [email or web address] Orig Print D/T: S: 06/19/2020 (0635 PAGE 3 Signed Report- CT ANGIO [id number] 06:32:00 [facility] : 1985 Sex: M Constable: St: REG -- Name: JORGE GOINS : 1985 Age/S: 34/M [address] Unit: [id number] Loc: [place] [address] Phys: Manuel Cortez DO Acct: [id number] Dis Date: Status: REG ER PHONE #: [phone] Exam Date: 06/19/2020 7288 FAX #: [phone] Reason: cp/hx AAA EXAMS: CPT CODE: [id number] CT ANGIO CHEST [address]286 EXAMINATION: - CT ANGIO CHEST, - CTA ABD PEL W CONT LOCATION: H61 CLINICAL HISTORY/INDICATION: cp/hx AAA COMPARISON: CT 02/27/2020. TECHNIQUE: Helical CT of the chest, abdomen and pelvis was acquired with intravenous contrast utilizing the CTA protocol. Images were reconstructed in the axial, sagittal and coronal planes. Maximum intensity projection images were also constructed on a separate workstation and submitted for interpretation. This examination was performed according to our departmental dose optimization program, which includes automated exposure control, adjustment of the mA and/or kV according to patient size, and/or use of iterative reconstruction technique. 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 A vascular stent extending from the mid aortic arch to the infrarenal abdominal aorta is again seen. The descending thoracic aorta and abdominal aorta are stable in size. 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 A stent within the right external iliac artery is patent. There is no para-aortic edema or fat stranding to suggest infection or rupture. There are no filling defects seen within the main or proximal segmental pulmonary arteries. LINES/TUBES/DEVICE: None. LUNGS AND AIRWAYS: There are multiple small nodular infiltrates throughout the bilateral lower lobes. There are mild patchy groundglass opacities throughout the bilateral lower lobes. A few small nodules are present within the lingula. There is no consolidation. There is no mass. PLEURA: No pneumothorax or pleural effusion. THYROID GLAND: Normal. PAGE 1 Signed Report (CONTINUED) Constable: St: REG Name: JORGE GOINSwood : 1985 Age/S: 34/M [address] Unit: [id number] Loc: [place] [address] Phys:Manuel Cortez DO Acct: [id number] Dis Date: Status: REG ER PHONE #: [phone] Exam Date: 2455 FAX #: [phone] Reason: cp/hx AAA EXAMS: CPT CODE: [id number] CT ANGIO CHEST 04193 (Continued) HEART AND MEDIASTINUM: Heart is enlarged without pericardial effusion.. Esophagus appears normal. ADENOPATHY: None. EXTERNAL SOFT TISSUE: No abnormalities. ABDOMEN AND PELVIS VASCULATURE: Stent within the thoracic and abdominal aorta as described above. 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 A stent within the right external iliac artery is patent. The bilateral common femoral arteries are patent. Dissection within the right internal iliac artery is unchanged. The celiac artery, SMA, bilateral main renal arteries and ABIMAEL are patent LIVER: No focal hepatic lesions or intrahepatic biliary dilatation. GALLBLADDER/BILIARY SYSTEM: Cholecystectomy. PANCREAS: Unremarkable. SPLEEN: No splenomegaly or focal lesions. ADRENALS: No adrenal nodules. KIDNEYS/URETERS: No hydronephrosis, stones, or solid mass lesions. LYMPH NODES: No lymphadenopathy. PERITONEUM / RETROPERITONEUM: No free air or fluid. Resolution of left-sided retroperitoneal hematoma with minimal residual fat stranding. BOWEL: No small bowel obstruction, colitis or bowel wall thickening. The appendix is normal. GENITOURINARY ORGANS: Unremarkable. FLUID/FREE AIR: NONE. URINARY BLADDER: Unremarkable. PAGE 2Signed Report (CONTINUED) Constable: St: REG Name: JORGE GOINS [facility] [place] : 1985 Age/S: 34/M [address] Unit: [id number] Loc: [place], [place] [address] Phys: Manuel Cortez DO Acct: [id number] Dis Date:Status: REG ER PHONE #: [phone] Exam Date: 06/19/2020534 FAX #: [phone] Reason: cp/hx AAA EXAMS: CPT CODE: [id number] CT ANGIO CHEST [address]288 (Continued) EXTERNAL SOFT TISSUE: No abdominal wall hematoma or hernia. REGIONAL OSSEOUS STRUCTURES: Intact. IMPRESSION: 1. Unchanged appearance of thethoracoabdominal aortic stent graft without evidence of aortic rupture or graft infection. 2. 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 The right external iliac artery stent is patent. 3. Multiple groundglass and nodular infiltrates throughout the bilateral lower lobes are compatible with pneumonia. at 0632 Reported and signed by: Cheli Alfaro MD CC: Technologist: OLIVIA DE LEON; Roxy Rayo Trnscrd Dt/Tm: 06/19/2020 (0632) [email or web address] Orig Print D/T: S: 06/19/2020 (0635 PAGE 3 Signed Report- XR CHEST 1 [id number] 06:07:00 [facility] : 1985 Sex: M Constable: St: REG -- Name: JORGE GOINSwood : 1985 Age/S: 34/M [address] Unit #: [id number] Loc: [place] [address] Phys: Manuel Cortez DO Acct: [id number] Dis Date: Status: REG ER PHONE #: [phone] Exam Date: 06/19/2020 0534 FAX #: [phone] Reason: cough EXAMS: CPT CODE: [id number] XR CHEST 1 V 61096 EXAMINATION: - XR CHEST 1 V LOCATION: 1 INDICATION/CLINICAL HISTORY: cough COMPARISON: Chest x-ray 02/27/2020 TECHNIQUE: AP view of the chest. FINDINGS: There are stable enlargement of the cardiac silhouette. A stent extending from the aortic arch to the abdominal aorta is again seen. Pulmonary vasculature are not congested. Mild patchy densities in the right lung base which may reflect atelectasis or infiltrates. There is no consolidation, pneumothorax or pleural effusions. IMPRESSION: 1. Stable cardiomegaly. 2. Right basilar atelectasis versus infiltrates. at 0607 Reported and signed by: Cheli Alfaro MD CC: Technologist: Candace Durbin Trncassiard Date/Time/By: 06/19/2020 (0607) : By: [email or web address] PAGE 1 Signed Report Constable: St: REG -- Name: JORGE GOINS [facility] : 1985 Age/S: 34/M [address] Unit #: [id number] Loc: [place] [address] Phys: Manuel Cortez DO Acct: [id number] Dis Date: Status: REG ER PHONE #: [phone] Exam Date: 06/19/2020533 FAX #: [phone] Reason: cough EXAMS: CPT CODE: [id number] XR CHEST 1 V 61408 (Continued) Orig Print D/T: S: 06/19/2020 (0610) PAGE 2 Signed ReportCoronavirus 2019 nCoV [id number] 05:16:00 Test Item Value Reference Range Interpretation Comments Coronavirus 2018 Negative NEGATIVE This test h as been nCoV Bedside (test authorize d by FDA under code = [id number]) an EUA for use byauthorized laboratories; T his test has been author ized only for the detecti on ofnucleic acid from SARS-CoV-2, not for any other viruses orpathogens; an d This test is only au thorized for the duratio n of thedeclaration that circumstances e xist justifying theauthorizatio n of emergency use o f in vitro diagnostic test sfor detection and/o r diagnosis of CO VID-19 under Eleutie01 4(b)(1) of the Act, 21 U.S .C. 360bbb-3(b)(1), unless theauthorizatio n is terminated or r evoked sooner. COMPREHENSIVE METABOLIC [id number] 05:10:00 Test Item Value Reference Range Interpretation Comments SODIUM (test code = 135 mmol/L 137-145 L NA) POTASSIUM (test code 3.8 mmol/L 3.4-5.0 N = K) CHLORIDE (test code 96 mmol/L 98-107 L = CL) CARBON DIOXIDE (test 24 mmol/L 22-30 N code = CO2) GLUCOSE (test code = 105 mg/dL 74-106 N GLU) BLOOD UREA NITROGEN 32 mg/dL 9-20 H (test code = BUN) GLOMERULAR 60 >60 The estimated FILTRATION RATE glomerular f iltration (test code = GFR) rate is co mputed usingpatient ra ce, age (>18), sex, and serum creatinine. If anyof the needed data elements are mi ssing the Laboratory cannot compute an kevin mation of the glomerul ar filtration rate . CREATININE (test 1.7 mg/dL 0.7-1.3 H code = CREAT) TOTAL PROTEIN (test 8.3 g/dL 6.3-8.2 H code = PROT) ALBUMIN (test code = 4.1 g/dL 3.5-5.0 N ALB) CALCIUM (test code = 9.0 mg/dL 8.4-10.2 N CA) BILIRUBIN TOTAL 1.6 mg/dL 0.2-1.3 H "A positive bias may (test code = BILT) occur for patients taking Eltrombo pag(a bone marrow sti mulant used to treat thrombocytopeni a andaplastic ane ezequiel)." BILIRUBIN CONJUGATED 0 mg/dL 0-0.3 N "A posi tive bias may (test code = BILCON) occur f or patients taking Eltrombo pag(a bone marrow sti mulant used to treat thrombocytopeni a andaplastic ane ezequiel)." C ONJUGATE D BILIRUBIN IS THE REPLACEMENT ASS AY FOR DIRECTBILIRUBIN . BILIRUBIN 0.7 mg/dL 0-1.1 N UNCONJUGATED (test code = BILUNC) SGOT/AST (test code 62 U/L 15-46 H = AST) SGPT/ALT (test code 72 U/L 0-34 H = ALT) ALKALINE PHOSPHATASE 125 U/L 38-126 N (test code = ALKP) LACTIC [id number] 05:09:00 Test Item Value Reference Range Interpretation Comments LACTIC ACID (test code = LACT) 1.9 mmol/L 0.7-2.0 N PROTHROMBIN [id number] 05:04:00 Test Item Value Reference Range Interpretation Comments PROTHROMBIN TIME 18.3 SECONDS 9.2-12.1 H PATIENT (test code = PTP) INTERNATIONAL NORMAL 1.6 The INR is to be used RATIO (test code = only for monitoring INR) ORAL ANTICOAGULANTTH ERAPY. Indication INR Value1. Prophylaxis/jaxon atment of: Venous Thrombosis, Pul monary Embolism 2.0 - 3.02. Prevention of s ystemic embolism from: Tissue heart valves 2. 0 - 3.0 Acute myocardia l infarction (to present systemic emboli sm)* 2.0 - 3.0 Valvu lar heart disease 2 .0 - 3.0 Atrial fibrillation 2. 0 - 3.03. Mechanica l prosthetic valv es (high risk) 2.5 - 3.5 * If oral anticoagulant t herapy is elected to preventrecurren t myocardial infa rction, an INR of 2.5-3 .5 isrecommended, consistent with Food and Drug Administrationr ecommen dations. THROMBOPLASTIN TIME [id number] 05:04:00 Test Item Value Reference Range Interpretation Comments THROMBOPLASTIN TIME 30.5 SECONDS 23.4-37.0 N Therape utic Range PARTIAL (test code = for Hep dennis PTT) EFFECTIVE Heparin IU/mL a PTT Seconds0.3 64.3 0.7 88.8 TROPONIN I [id number] 05:02:00 Test Item Value Reference Range Interpretation Comments TROPONIN I RAPID 0.07 ng/mL 0.00-0.079 N ISTAT TROP ONIN I (test code = CRITERIA0.00-0. 08 ng/mL - TROPIRAP) Negative>0.08 n g/mL - Positive The us e of serial sampling and te sting protocol is are commended practice.An perez vated troponin level alone is often not suffi cient fordiagnosis of myocardial infarction. Tro ponin results obtaine d by different assay s may vary.Evaluation of the extent of myoca rdial damage based on increase of troponin would be valid only if similar methodology is used. CBC W/AUTO [id number] 04:57:00 Test Item Value Reference Range Interpretation Comments WHITE BLOOD CELL (test code = 6.9 x10 3/uL 5.0-12.0 N WBC) RED BLOOD CELL (test code = 4.14 x10 6/uL 4.70-6.10 L RBC) HEMOGLOBIN (test code = HGB) 12.0 g/dL 14.0-18.0 L HEMATOCRIT (test code = HCT) 38.2 % 37.0-49.0 N MEAN CELL VOLUME (test code = 92 fL 80-94 N MCV) MEAN CELL HGB (test code = MCH) 29.0 pg 27-31 N MEAN CELL HGB CONCENTRATION 31.4 g/dL 33-37 L (test code = MCHC) RED CELL DISTRIBUTION WIDTH 15.9 % 11.5-15.5 H (test code = RDW) PLATELET COUNT (test code = 422 x10 3/uL 130-400 H PLT) MEAN PLATELET VOLUME (test code 10.3 fL 9.4-16.4 N = MPV) NEUTROPHIL % (test code = NT%) 80.3 % 43-65 H IMMATURE GRANULOCYTE % (test 0.4 % 0.0-2.0 N code = IG%) LYMPHOCYTE % (test code = LY%) 12.5 % 20.5-45.5 L MONOCYTE % (test code = MO%) 6.0 % 5.5-11.7 N EOSINOPHIL % (test code = EO%) 0.4 % 0.9-2.9 L BASOPHIL % (test code = BA%) 0.4 % 0.2-1.0 N NUCLEATED RBC % (test code = 0.0 % 0-1.0 N NRBC%) NEUTROPHIL # (test code = NT#) 5.51 x10 3/uL 2.2-4.8 H IMMATURE GRANULOCYTE # (test 0.03 x10 3/uL 0-0.03 N code = IG#) LYMPHOCYTE # (test code = LY#) 0.86 x10 3/uL 1.3-2.9 L MONOCYTE # (test code = MO#) 0.41 x10 3/uL 0.3-0.8 N EOSINOPHIL # (test code = EO#) 0.03 x10 3/uL 0.0-0.2 N BASOPHIL # (test code = BA#) 0.03 x10 3/uL 0.0-0.1 N CHEM [id number] 09:29:00 Test Item Value Reference Range Interpretation Comments Glucose Lvl (test code = Glucose Lvl) 103 70-99 [place] [id number] 09:29:00 Test Item Value Reference Range Interpretation Comments BUN (test code = BUN) 34 7-22 [place] 513370-12-11 09:29:00 Test Item Value Reference Range Interpretation Comments Creatinine Lvl (test code = Creatinine 1.97 0.50-1.40 Lvl) [place] 513370-12-11 09:29:00 Test Item Value Reference Range Interpretation Comments Sodium Lvl (test code = Sodium Lvl) 137 135-145 [place] 513370-12-11 09:29:00 Test Item Value Reference Range Interpretation Comments Potassium Lvl (test code = Potassium 3.4 3.5-5.1 Lvl) [place] 513370-12-11 09:29:00 Test Item Value Reference Range Interpretation Comments Chloride Lvl (test code = Chloride Lvl) 102 95-109 [place] 513370-12-11 09:29:00 Test Item Value Reference Range Interpretation Comments CO2 (test code = CO2) 26 24-32 [place] [address]-12-11 09:29:00 Test Item Value Reference Range Interpretation Comments Calcium Lvl (test code = Calcium Lvl) 8.3 8.5-10.5 [place] 513370-12-11 09:29:00 Test Item Value Reference Range Interpretation Comments AGAP (test code = AGAP) 12.4 10.0-20.0 [place] 513370-12-11 09:29:00 Test Item Value Reference Range Interpretation Comments eGFR (test code = eGFR) 50 [place] [address]-12-11 09:29:00 Test Item Value Reference Range Interpretation Comments Magnesium Lvl (test code = Magnesium 1.8 1.8-2.4 Lvl) [place] 513370-12-11 09:29:00 Test Item Value Reference Range Interpretation Comments Phosphorus (test code = Phosphorus) 4.0 2.5-4.5 [place] [address]-12-11 09:29:00 Test Item Value Reference Range Interpretation Comments WBC (test code = WBC) 5.8 3.7-10.4 [place] [address]-12-11 09:29:00 Test Item Value Reference Range Interpretation Comments RBC (test code = RBC) 4.09 4.70-6.10 [id number] 09:29:00 Test Item Value Reference Range Interpretation Comments Hgb (test code = Hgb) 12.4 14.0-18.0 [facility] A[id number] 09:29:00 Test Item Value Reference Range Interpretation Comments Hct (test code = Hct) 37.9 42.0-54.0 [facility] AustinUqrxghmQGGRFZDEZW9715-47-72 09:29:00 Test Item Value Reference Range Interpretation Comments MCV (test code = MCV) 92.5 80.0-94.0 [facility] AustinCiayubvHYJPXTDUAK1120-19-16 09:29:00 Test Item Value Reference Range Interpretation Comments MCH (test code = MCH) 30.3 pg 27.0-31.0 [facility] A[id number] 09:29:00 Test Item Value Reference Range Interpretation Comments MCHC (test code = MCHC) 32.7 32.0-36.0 [facility] AustinAtoxbuaOUSZYGVLFB0726-19-02 09:29:00 Test Item Value Reference Range Interpretation Comments RDW (test code = RDW) 17.6 11.5-14.5 [facility] AustinBwrdaoiNSIZGHVKDG4546-37-70 09:29:00 Test Item Value Reference Range Interpretation Comments Platelet (test code = Platelet) 343 133-450 [facility] AustinVaxystpBFYMWFUYVH9754-23-50 09:29:00 Test Item Value Reference Range Interpretation Comments MPV (test code = MPV) 8.5 7.4-10.4 [facility] [id number] 09:29:00 Test Item Value Reference Range Interpretation Comments Segs (test code = Segs) 66.2 45.0-75.0 [facility] AustinWsotyehYDZKKESGBE8449-45-52 09:29:00 Test Item Value Reference Range Interpretation Comments Lymphocytes (test code = Lymphocytes) 22.9 20.0-40.0 [place] 193170-12-11 09:29:00 Test Item Value Reference Range Interpretation Comments Monocytes (test code = Monocytes) 9.0 2.0-12.0 [facility] AustinAimsdsyZNOYFEXNCS7669-67-53 09:29:00 Test Item Value Reference Range Interpretation Comments Eosinophils (test code = 1.5 See_Comment [A utomated message] The Eosinophils) system which ge nerated this result tra nsmitted reference range : <=4.0. The reference r patrick was not used to int erpret this result as normal/abnormal . [facility]ci[facility]rl[facility]XBDUODGZS1288-91-52 09:29:00 Test Item Value Reference Range Interpretation Comments Basophils (test code = 0.4 See_Comment [Aut omated message] The Basophils) system which ge nerated this result tra nsmitted reference range : <=1.0. The reference r patrick was not used to int erpret this result as normal/abnormal . [facility]XLIDRIAHWW8352[facility]00 Test Item Value Reference Range Interpretation Comments Neutrophils # (test code = Neutrophils 3.8 1.5-8.1 #) [facility]zgbejmMEFCWZWSNS9742-47-35 09:29:00 Test Item Value Reference Range Interpretation Comments Lymphocytes # (test code = Lymphocytes 1.3 1.0-5.5 #) [facility] AustinRegjulfUUMASLCASK6015-08-57 09:29:00 Test Item Value Reference Range Interpretation Comments Monocytes # (test code 0.5 See_Comment [Aut omated message] The = Monocytes #) system which generated this result tra nsmitted reference range : <=0.8. The reference r patrick was not used to int erpret this result as normal/abnormal . [facility] AustinUjyttxgMPTBRCXCPE1525-63-59 09:29:00 Test Item Value Reference Range Interpretation Comments Eosinophils # (test code 0.1 See_Comment [A utomated message] The = Eosinophils #) system whic h generated this result tra nsmitted reference range : <=0.5. The reference r patrick was not used to int erpret this result as normal/abnormal . [facility] OPAEVKQ8343-06-53 09:29:00 Test Item Value Reference Range Interpretation Comments Ca Ion WB (test code = Ca Ion WB) 1.07 1.05-1.25 [facility]PAR[facility]YROID QCZHXCH8302-12-98 09:29:00 Test Item Value Reference Range Interpretation Comments Ca Norm WB (test code = Ca Norm WB) 1.03 1.05-1.25 [facility]CARD[facility]AC JWELRLW0233-94-69 23:20:00 Test Item Value Reference Range Interpretation Comments Troponin-I (test code 0.05 See_Comment [Auto mated message] The = Troponin-I) system which g enerated this result transmit kar reference range : <=0.40. The reference r patrick was not used to interpr et this result as brooklynn l/abnormal. [facility]2020-12-10 10:41:00 Test Item Value Reference Range Interpretation Comments Glucose Lvl (test code = Glucose Lvl) 105 70-99 [facility]2020-12-10 10:41:00 Test Item Value Reference Range Interpretation Comments BUN (test code = BUN) 31 7-22 [facility]2020-12-10 10:41:00 Test Item Value Reference Range Interpretation Comments Creatinine Lvl (test code = Creatinine 2.47 0.50-1.40 Lvl) [facility]2020-12-10 10:41:00 Test Item Value Reference Range Interpretation Comments Sodium Lvl (test code = Sodium Lvl) 139 135-145 [place] 513370-12-10 10:41:00 Test Item Value Reference Range Interpretation Comments Potassium Lvl (test code = Potassium 3.5 3.5-5.1 Lvl) [facility]2020-12-10 10:41:00 Test Item Value Reference Range Interpretation Comments Chloride Lvl (test code = Chloride Lvl) 105 95-109 [facility]2020-12-10 10:41:00 Test Item Value Reference Range Interpretation Comments CO2 (test code = CO2) 22 24-32 [facility]2020-12-10 10:41:00 Test Item Value Reference Range Interpretation Comments AGAP (test code = AGAP) 15.5 10.0-20.0 [facility]2020-12-10 10:41:00 Test Item Value Reference Range Interpretation Comments Calcium Lvl (test code = Calcium Lvl) 9.0 8.5-10.5 [facility]2020-12-10 10:41:00 Test Item Value Reference Range Interpretation Comments eGFR (test code = eGFR) 38 [facility]2020-12-10 10:41:00 Test Item Value Reference Range Interpretation Comments Magnesium Lvl (test code = Magnesium 2.1 1.8-2.4 Lvl) [facility]2020-12-10 10:41:00 Test Item Value Reference Range Interpretation Comments Phosphorus (test code = Phosphorus) 4.2 2.5-4.5 [facility] AustinWqkwbzpDHEAQXPJEG6474-83-84 10:41:00 Test Item Value Reference Range Interpretation Comments WBC (test code = WBC) 7.7 3.7-10.4 [facility] AustinOngmxwxDPMBBZNHXF7576-95-12 10:41:00 Test Item Value Reference Range Interpretation Comments RBC (test code = RBC) 4.42 4.70-6.10 [facility] AustinIkhsntmNOHQLFXJZJ3008-88-01 10:41:00 Test Item Value Reference Range Interpretation Comments Hgb (test code = Hgb) 13.2 14.0-18.0 [facility] AustinVtrvpdgUSPIABDXWZ9505-72-21 10:41:00 Test Item Value Reference Range Interpretation Comments Hct (test code = Hct) 41.1 42.0-54.0 [facility] AustinEgilbpnGJVIXYSEAJ4426-48-04 10:41:00 Test Item Value Reference Range Interpretation Comments MCV (test code = MCV) 93.0 80.0-94.0 [facility] AustinDfacxcdFTCCDNLPLG2666-65-93 10:41:00 Test Item Value Reference Range Interpretation Comments MCH (test code = MCH) 29.8 pg 27.0-31.0 [facility] AustinQxscluhEJQLPILHVU7128-06-49 10:41:00 Test Item Value Reference Range Interpretation Comments MCHC (test code = MCHC) 32.1 32.0-36.0 [facility] AustinQfmiimxUZHXAFWGLZ4210-84-65 10:41:00 Test Item Value Reference Range Interpretation Comments RDW (test code = RDW) 17.5 11.5-14.5 [facility] AustinLbitelkWVZTYKOULI4385-75-48 10:41:00 Test Item Value Reference Range Interpretation Comments Platelet (test code = Platelet) 338 133-450 [facility] AustinMlqudnfMXCOWJUEDU7479-53-61 10:41:00 Test Item Value Reference Range Interpretation Comments MPV (test code = MPV) 8.3 7.4-10.4 [facility] AustinZhlkuuhERFSXJMLFZ5550-23-88 10:41:00 Test Item Value Reference Range Interpretation Comments Segs (test code = Segs) 76.0 45.0-75.0 [facility] AustinHyghqroGHQWYOHMDG1658-90-29 10:41:00 Test Item Value Reference Range Interpretation Comments Lymphocytes (test code = Lymphocytes) 12.3 20.0-40.0 [facility] HospitalEkymeiqRVAUIRCTAP2281-31-74 10:41:00 Test Item Value Reference Range Interpretation Comments Monocytes (test code = Monocytes) 10.6 2.0-12.0 [facility] HospitalVckgtuyQSCEPTSDAA7836-77-54 10:41:00 Test Item Value Reference Range Interpretation Comments Eosinophils (test code = 0.5 See_Comment [A utomated message] The Eosinophils) system which ge nerated this result tra nsmitted reference range : <=4.0. The reference r patrick was not used to int erpret this result as normal/abnormal . [facility] HospitalImybuvaAOWAYSOAIA8541-01-59 10:41:00 Test Item Value Reference Range Interpretation Comments Basophils (test code = 0.6 See_Comment [Aut omated message] The Basophils) system which ge nerated this result tra nsmitted reference range : <=1.0. The reference r patrick was not used to int erpret this result as normal/abnormal . [facility]XytnobqQGETZGAVDI2504-27-48 10:41:00 Test Item Value Reference Range Interpretation Comments Neutrophils # (test code = Neutrophils 5.9 1.5-8.1 #) [facility] HospitalEwfwkjfFIXJHARTSS7629-09-49 10:41:00 Test Item Value Reference Range Interpretation Comments Lymphocytes # (test code = Lymphocytes 1.0 1.0-5.5 #) [facility] HospitalPpwivstYJSIUGCVMS9127-36-48 10:41:00 Test Item Value Reference Range Interpretation Comments Monocytes # (test code 0.8 See_Comment [Aut omated message] The = Monocytes #) system which generated this result tra nsmitted reference range : <=0.8. The reference r patrick was not used to int erpret this result as normal/abnormal . [facility] CenterannPARATHYROID ULDHLRL4177-19-27 10:41:00 Test Item Value Reference Range Interpretation Comments Ca Ion WB (test code = Ca Ion WB) 1.00 1.05-1.25 [facility] CenterannPARATHYROID DOIQPED6855-84-13 10:41:00 Test Item Value Reference Range Interpretation Comments Ca Norm WB (test code = Ca Norm WB) 0.98 1.05-1.25 [facility] HospitalDR[facility] PMKNDC8137-50-15 18:45:00 Test Item Value Reference Range Interpretation Comments U Amph Scr (test code Negative *NA*(06/03/20 = U Amph Scr) 12:45 PM) [facility] DTOBOE7506[facility]10-85 18:45:00 Test Item Value Reference Range Interpretation Comments U Altagracia Scr (test code Negative *NA*(06/03/20 = U Altagracia Scr) 12:45 PM) [facility] BFLCZF9116-14-52 18:45:00 Test Item Value Reference Range Interpretation Comments U Benzodiaz Scr (test Negative *NA*(06/03/20 code = U Benzodiaz Scr) 12:45 PM) [facility] [id number] 18:45:00 Test Item Value Reference Range Interpretation Comments U Cocaine Scr (test Negative *NA*(06/03/20 code = U Cocaine Scr) 12:45 PM) [facility] [id number] 18:45:00 Test Item Value Reference Range Interpretation Comments U Cannab Scr (test Negative *NA*(06/03/20 code = U Cannab Scr) 12:45 PM) [facility] WXGZNG9877-64-28 18:45:00 Test Item Value Reference Range Interpretation Comments U Opiate Scr (test Positive *ABN*(06/03/20 code = U Opiate Scr) 12:45 PM) [facility] AFXQRH6007-60-20 18:45:00 Test Item Value Reference Range Interpretation Comments U Phencyclidine Scr (test Negative code = U Phencyclidine *NA*(06/03/20 12:45 Scr) PM) [facility]annDR[facility] [id number] 18:45:00 Test Item Value Reference Range Interpretation Comments UDS Note (test code = See Note (06/03/20 12:45 UDS Note) PM) [facility]CARD[facility] [id number] 18:10:00 Test Item Value Reference Range Interpretation Comments Total CK (test code = Total CK) 68 12-191 [facility] FESYJFZ9459-75-89 18:10:00 Test Item Value Reference Range Interpretation Comments Troponin-I (test code 0.06 See_Comment [Auto mated message] The = Troponin-I) system which g enerated this result transmit kar reference range : <=0.40. The reference r patrick was not used to interpr et this result as brooklynn l/abnormal. [facility] POEOBUA7072-48-02 18:10:00 Test Item Value Reference Range Interpretation Comments BNP (test code = BNP) 2370 [facility]2020-12-09 18:10:00 Test Item Value Reference Range Interpretation Comments Glucose Lvl (test code = Glucose Lvl) 98 70-99 [place] 513370-12-09 18:10:00 Test Item Value Reference Range Interpretation Comments BUN (test code = BUN) 27 7-22 [facility]2020-12-09 18:10:00 Test Item Value Reference Range Interpretation Comments Creatinine Lvl (test code = Creatinine 1.94 0.50-1.40 Lvl) [facility]2020-12-09 18:10:00 Test Item Value Reference Range Interpretation Comments Sodium Lvl (test code = Sodium Lvl) 142 135-145 [facility]2020-12-09 18:10:00 Test Item Value Reference Range Interpretation Comments Potassium Lvl (test code = Potassium 3.2 3.5-5.1 Lvl) [facility]2020-12-09 18:10:00 Test Item Value Reference Range Interpretation Comments Chloride Lvl (test code = Chloride Lvl) 106 95-109 [facility]2020-12-09 18:10:00 Test Item Value Reference Range Interpretation Comments CO2 (test code = CO2) 25 24-32 [facility]2020-12-09 18:10:00 Test Item Value Reference Range Interpretation Comments Calcium Lvl (test code = Calcium Lvl) 8.9 8.5-10.5 [facility]2020-12-09 18:10:00 Test Item Value Reference Range Interpretation Comments Total Protein (test code = Total 8.0 6.4-8.4 Protein) [facility]2020-12-09 18:10:00 Test Item Value Reference Range Interpretation Comments Albumin Lvl (test code = Albumin Lvl) 3.4 3.5-5.0 [facility]2020-12-09 18:10:00 Test Item Value Reference Range Interpretation Comments ALT (test code = ALT) 248 See_Comment [Auto mated message] The system which ge nerated this result transmit kar reference range : <=65. The reference range was not used to interpr et this result as brooklynn l/abnormal. [place] 513370-12-09 18:10:00 Test Item Value Reference Range Interpretation Comments AST (test code = AST) 104 See_Comment [Auto mated message] The system which ge nerated this result transmit kar reference range : <=37. The reference range was not used to interpr et this result as brooklynn l/abnormal. [facility]2020-12-09 18:10:00 Test Item Value Reference Range Interpretation Comments Alk Phos (test code = Alk Phos) 96 39-136 [place] 513370-12-09 18:10:00 Test Item Value Reference Range Interpretation Comments Bili Total (test code = Bili Total) 1.4 0.2-1.3 [place] 513370-12-09 18:10:00 Test Item Value Reference Range Interpretation Comments AGAP (test code = AGAP) 14.2 10.0-20.0 [place] 513370-12-09 18:10:00 Test Item Value Reference Range Interpretation Comments B/C Ratio (test code = B/C Ratio) 14 1 6-25 [place] [address]-12-09 18:10:00 Test Item Value Reference Range Interpretation Comments Globulin (test code = Globulin) 4.6 2.7-4.2 [place] 513370-12-09 18:10:00 Test Item Value Reference Range Interpretation Comments A/G Ratio (test code = A/G Ratio) 0.7 1 0.7-1.6 [place] [address]-12-09 18:10:00 Test Item Value Reference Range Interpretation Comments eGFR (test code = eGFR) 51 [place] [address]-12-09 18:10:00 Test Item Value Reference Range Interpretation Comments WBC (test code = WBC) 6.9 3.7-10.4 [place] [address]-12-09 18:10:00 Test Item Value Reference Range Interpretation Comments RBC (test code = RBC) 4.33 4.70-6.10 [place] [address]-12-09 18:10:00 Test Item Value Reference Range Interpretation Comments Hgb (test code = Hgb) 12.8 14.0-18.0 [place] [address]-12-09 18:10:00 Test Item Value Reference Range Interpretation Comments Hct (test code = Hct) 39.1 42.0-54.0 [place] 193170-12-09 18:10:00 Test Item Value Reference Range Interpretation Comments MCV (test code = MCV) 90.4 80.0-94.0 [place] [address]-12-09 18:10:00 Test Item Value Reference Range Interpretation Comments MCH (test code = MCH) 29.6 pg 27.0-31.0 [place] 193170-12-09 18:10:00 Test Item Value Reference Range Interpretation Comments MCHC (test code = MCHC) 32.7 32.0-36.0 [place] 193170-12-09 18:10:00 Test Item Value Reference Range Interpretation Comments RDW (test code = RDW) 17.3 11.5-14.5 [place] [address]-12-09 18:10:00 Test Item Value Reference Range Interpretation Comments Platelet (test code = Platelet) 377 133-450 [facility] AustinWcabwokFJFFQDGHDO9443-51-84 18:10:00 Test Item Value Reference Range Interpretation Comments MPV (test code = MPV) 8.5 7.4-10.4 [place] 193170-12-09 18:10:00 Test Item Value Reference Range Interpretation Comments PTT (test code = PTT) 32.0 s 22.9-35.8 [place] 193170-12-09 18:10:00 Test Item Value Reference Range Interpretation Comments PT (test code = PT) 16.2 s 12.0-14.7 [place] [address]-12-09 18:10:00 Test Item Value Reference Range Interpretation Comments INR (test code = INR) 1.29 1 0.85-1.17 [place] [address]-12-09 18:10:00 Test Item Value Reference Range Interpretation Comments Segs (test code = Segs) 78.5 45.0-75.0 [place] [address]-12-09 18:10:00 Test Item Value Reference Range Interpretation Comments Lymphocytes (test code = Lymphocytes) 13.0 20.0-40.0 [place] [address]-12-09 18:10:00 Test Item Value Reference Range Interpretation Comments Monocytes (test code = Monocytes) 7.4 2.0-12.0 [facility]RltmojnGXHOYRMTLE9361-34-15 18:10:00 Test Item Value Reference Range Interpretation Comments Eosinophils (test code = 0.5 See_Comment [A utomated message] The Eosinophils) system which ge nerated this result tra nsmitted reference range : <=4.0. The reference r patrick was not used to int erpret this result as normal/abnormal . [facility] HospitalUhflyljNWNUJXLSFK3962-27-13 18:10:00 Test Item Value Reference Range Interpretation Comments Basophils (test code = 0.6 See_Comment [Aut omated message] The Basophils) system which ge nerated this result tra nsmitted reference range : <=1.0. The reference r patrick was not used to int erpret this result as normal/abnormal . [facility] HospitalWtzcwjrICHDFUHXGS5073-00-18 18:10:00 Test Item Value Reference Range Interpretation Comments Neutrophils # (test code = Neutrophils 5.4 1.5-8.1 #) [facility] AustinDrcbkliITOEBGXSES7408-24-29 18:10:00 Test Item Value Reference Range Interpretation Comments Lymphocytes # (test code = Lymphocytes 0.9 1.0-5.5 #) [facility]VwlknspGNORRVSWFX4580-64-12 18:10:00 Test Item Value Reference Range Interpretation Comments Monocytes # (test code 0.5 See_Comment [Aut omated message] The = Monocytes #) system which generated this result tra nsmitted reference range : <=0.8. The reference r patrick was not used to int erpret this result as normal/abnormal . [facility] CenterSeebright2020-09-29 08:49:00 Test Item Value Reference Range Interpretation Comments Total CK (test code = Total CK) 74 12-191 [facility] CenterSee[facility]2020-09-29 08:49:00 Test Item Value Reference Range Interpretation Comments Troponin-I (test code 0.03 See_Comment [Auto mated message] The = Troponin-I) system which g enerated this result transmit kar reference range : <=0.40. The reference r patrick was not used to interpr et this result as brooklynn l/abnormal. [facility]See[facility]2020-09-29 08:49:00 Test Item Value Reference Range Interpretation Comments BNP (test code = BNP) 152 [facility] Recorrido SFJCS0425-98-19 08:49:00 Test Item Value Reference Range Interpretation Comments Glucose Lvl (test code = Glucose Lvl) 108 70-99 [place] 513370-09-29 08:49:00 Test Item Value Reference Range Interpretation Comments BUN (test code = BUN) 20 7-22 [place] 513370-09-29 08:49:00 Test Item Value Reference Range Interpretation Comments Creatinine Lvl (test code = Creatinine 1.76 0.50-1.40 Lvl) [place] 513370-09-29 08:49:00 Test Item Value Reference Range Interpretation Comments Sodium Lvl (test code = Sodium Lvl) 138 135-145 [place] 513370-09-29 08:49:00 Test Item Value Reference Range Interpretation Comments Potassium Lvl (test code = Potassium 3.6 3.5-5.1 Lvl) [place] 513370-09-29 08:49:00 Test Item Value Reference Range Interpretation Comments Chloride Lvl (test code = Chloride Lvl) 106 95-109 [place] 513370-09-29 08:49:00 Test Item Value Reference Range Interpretation Comments CO2 (test code = CO2) 23 24-32 [place] 513370-09-29 08:49:00 Test Item Value Reference Range Interpretation Comments Calcium Lvl (test code = Calcium Lvl) 9.1 8.5-10.5 [place] 513370-09-29 08:49:00 Test Item Value Reference Range Interpretation Comments Total Protein (test code = Total 9.1 6.4-8.4 Protein) [place] 513370-09-29 08:49:00 Test Item Value Reference Range Interpretation Comments Albumin Lvl (test code = Albumin Lvl) 3.7 3.5-5.0 [place] 513370-09-29 08:49:00 Test Item Value Reference Range Interpretation Comments ALT (test code = ALT) 19 See_Comment [Auto mated message] The system which ge nerated this result transmit kar reference range : <=65. The reference range was not used to interpr et this result as brooklynn l/abnormal. [facility] HospitalGeorge [facility]ee [employer] [facility] GQZEF6291-96-18 08:49:00 Test Item Value Reference Range Interpretation Comments AST (test code = AST) 27 See_Comment [Auto mated message] The system which ge nerated this result transmit kar reference range : <=37. The reference range was not used to interpr et this result as brooklynn l/abnormal. [facility]9You GDTLU7506-42-67 08:49:00 Test Item Value Reference Range Interpretation Comments Alk Phos (test code = Alk Phos) 144 39-136 [facility] RYPOF5984-89-64 08:49:00 Test Item Value Reference Range Interpretation Comments Bili Total (test code = Bili Total) 0.6 0.2-1.3 [facility] PZZSD1111-66-26 08:49:00 Test Item Value Reference Range Interpretation Comments AGAP (test code = AGAP) 12.6 10.0-20.0 [facility] YAZQS3659-34-22 08:49:00 Test Item Value Reference Range Interpretation Comments B/C Ratio (test code = B/C Ratio) 11 1 6-25 [facility] KZOOW7343-78-74 08:49:00 Test Item Value Reference Range Interpretation Comments Globulin (test code = Globulin) 5.4 2.7-4.2 [facility] GKEAT2311-85-05 08:49:00 Test Item Value Reference Range Interpretation Comments A/G Ratio (test code = A/G Ratio) 0.7 1 0.7-1.6 [place] 513370-09-29 08:49:00 Test Item Value Reference Range Interpretation Comments eGFR (test code = eGFR) 57 [facility]George [facility] NVSMT2036-03-00 08:49:00 Test Item Value Reference Range Interpretation Comments Lipase Lvl (test code = Lipase Lvl) 93 73-393 [facility] HospitalOuicaevZKWSOYOIPM3061-61-11 08:49:00 Test Item Value Reference Range Interpretation Comments WBC (test code = WBC) 5.2 3.7-10.4 [facility] HospitalXcqcizdLVJAXWDRZL5829-77-47 08:49:00 Test Item Value Reference Range Interpretation Comments RBC (test code = RBC) 4.61 4.70-6.10 [place] 193170-09-29 08:49:00 Test Item Value Reference Range Interpretation Comments Hgb (test code = Hgb) 12.8 14.0-18.0 [facility] HospitalGkziurkQINJWLYJSL1344-06-86 08:49:00 Test Item Value Reference Range Interpretation Comments Hct (test code = Hct) 38.9 42.0-54.0 [facility] AustinToqoymqRUAIAPEMJD4149-43-90 08:49:00 Test Item Value Reference Range Interpretation Comments MCV (test code = MCV) 84.5 80.0-94.0 [facility] AustinAkbzpeoMCQXQQWVKX9143-40-73 08:49:00 Test Item Value Reference Range Interpretation Comments MCH (test code = MCH) 27.8 pg 27.0-31.0 [facility] AustinElpbmmlAAEUDWYVLR2091-82-76 08:49:00 Test Item Value Reference Range Interpretation Comments MCHC (test code = MCHC) 32.9 32.0-36.0 [facility] AustinTwujlrsZVFKKJXZQE1493-64-25 08:49:00 Test Item Value Reference Range Interpretation Comments RDW (test code = RDW) 15.8 11.5-14.5 [facility] AustinRxjkneoVJVXWNSUBN5320-47-23 08:49:00 Test Item Value Reference Range Interpretation Comments Platelet (test code = Platelet) 211 133-450 [facility] AustinPjtojxlZRGHJSCVPG3385-45-17 08:49:00 Test Item Value Reference Range Interpretation Comments MPV (test code = MPV) 7.5 7.4-10.4 [facility] AustinMpspzvvGCDSVHJLLK4609-41-06 08:49:00 Test Item Value Reference Range Interpretation Comments PT (test code = PT) 14.4 s 12.0-14.7 [facility] AustinHeaukliWLHEPXZNCX7827-44-22 08:49:00 Test Item Value Reference Range Interpretation Comments INR (test code = INR) 1.11 1 0.85-1.17 [facility] AustinAnzzyhnQTGGWUNTSZ4072-99-86 08:49:00 Test Item Value Reference Range Interpretation Comments PTT (test code = PTT) 30.3 s 22.9-35.8 [facility] AustinVjunbnvCFQIVUAJZK0713-84-91 08:49:00 Test Item Value Reference Range Interpretation Comments Segs (test code = Segs) 66.0 45.0-75.0 [facility] AustinXmrxgonMUDEDSQLWR6636-20-00 08:49:00 Test Item Value Reference Range Interpretation Comments Lymphocytes (test code = Lymphocytes) 18.1 20.0-40.0 [facility] AustinIcbpgstWMSDYRWLHN6241-15-14 08:49:00 Test Item Value Reference Range Interpretation Comments Monocytes (test code = Monocytes) 11.6 2.0-12.0 [facility] AustinFbwprbuJNUDPZNTMX1433-22-52 08:49:00 Test Item Value Reference Range Interpretation Comments Eosinophils (test code = 3.6 See_Comment [A utomated message] The Eosinophils) system which ge nerated this result tra nsmitted reference range : <=4.0. The reference r patrick was not used to int erpret this result as normal/abnormal . [facility] AustinNczxetlRHRRBRLLZU9089-75-02 08:49:00 Test Item Value Reference Range Interpretation Comments Basophils (test code = 0.7 See_Comment [Aut omated message] The Basophils) system which ge nerated this result tra nsmitted reference range : <=1.0. The reference r patrick was not used to int erpret this result as normal/abnormal . [id number] 08:49:00 Test Item Value Reference Range Interpretation Comments Neutrophils # (test code = Neutrophils 3.5 1.5-8.1 #) [facility] [id number] 08:49:00 Test Item Value Reference Range Interpretation Comments Lymphocytes # (test code = Lymphocytes 0.9 1.0-5.5 #) [facility] [id number] 08:49:00 Test Item Value Reference Range Interpretation Comments Monocytes # (test code 0.6 See_Comment [Aut omated message] The = Monocytes #) system which generated this result tra nsmitted reference range : <=0.8. The reference r patrick was not used to int erpret this result as normal/abnormal . [facility] [id number] 08:49:00 Test Item Value Reference Range Interpretation Comments Eosinophils # (test code 0.2 See_Comment [A utomated message] The = Eosinophils #) system whic h generated this result tra nsmitted reference range : <=0.5. The reference r patrick was not used to int erpret this result as normal/abnormal . [facility] METABOLIC [id number] 05:00:00 Test Item Value Reference Range Interpretation Comments SODIUM (test code = 139 mmol/L 137-145 N NA) POTASSIUM (test code 3.9 mmol/L 3.4-5.0 N = K) CHLORIDE (test code = 108 mmol/L 98-107 H CL) CARBON DIOXIDE (test 21 mmol/L 22-30 L code = CO2) GLUCOSE (test code = 147 mg/dL 74-106 H GLU) BLOOD UREA NITROGEN 18 mg/dL 9-20 N (test code = BUN) GLOMERULAR FILTRATION 90 >60 The es timated RATE (test code = glomerular filtration GFR) rate is compute d usingpatient ra ce, age (>18), sex, and serum creatinine. If anyof the needed data elements are mi ssing the Laboratory cannot compute an kevin mation of the glomerul ar filtration rate . CREATININE (test code 1.2 mg/dL 0.7-1.3 N = CREAT) CALCIUM (test code = 8.4 mg/dL 8.4-10.2 N CA) CBC W/AUTO [id number] 04:01:00 Test Item Value Reference Range Interpretation Comments WHITE BLOOD CELL (test code = 6.4 x10 3/uL 5.0-12.0 N WBC) RED BLOOD CELL (test code = 3.69 x10 6/uL 4.70-6.10 L RBC) HEMOGLOBIN (test code = HGB) 10.5 g/dL 14.0-18.0 L HEMATOCRIT (test code = HCT) 33.8 % 37.0-49.0 L MEAN CELL VOLUME (test code = 92 fL 80-94 N MCV) MEAN CELL HGB (test code = MCH) 28.5 pg 27-31 N MEAN CELL HGB CONCENTRATION 31.1 g/dL 33-37 L (test code = MCHC) RED CELL DISTRIBUTION WIDTH 15.1 % 11.5-15.5 N (test code = RDW) PLATELET COUNT (test code = 291 x10 3/uL 130-400 N PLT) MEAN PLATELET VOLUME (test code 10.9 fL 9.4-16.4 N = MPV) NEUTROPHIL % (test code = NT%) 77.9 % 43-65 H IMMATURE GRANULOCYTE % (test 0.5 % 0.0-2.0 N code = IG%) LYMPHOCYTE % (test code = LY%) 10.7 % 20.5-45.5 L MONOCYTE % (test code = MO%) 10.7 % 5.5-11.7 N EOSINOPHIL % (test code = EO%) 0.0 % 0.9-2.9 L BASOPHIL % (test code = BA%) 0.2 % 0.2-1.0 N NUCLEATED RBC % (test code = 0.0 % 0-1.0 N NRBC%) NEUTROPHIL # (test code = NT#) 4.95 x10 3/uL 2.2-4.8 H IMMATURE GRANULOCYTE # (test 0.03 x10 3/uL 0-0.03 N code = IG#) LYMPHOCYTE # (test code = LY#) 0.68 x10 3/uL 1.3-2.9 L MONOCYTE # (test code = MO#) 0.68 x10 3/uL 0.3-0.8 N EOSINOPHIL # (test code = EO#) 0.00 x10 3/uL 0.0-0.2 N BASOPHIL # (test code = BA#) 0.01 x10 3/uL 0.0-0.1 N - CTA ABD PEL W [id number] 09:10:00 FAX: Papi Hood [phone] Constable: St: ADM FAX: Joselyn Dominguez NP [phone] ------ Name: JORGE GOINS [facility] : 1985 Age/S: 34/M [address] Unit: [id number] Loc: [address] [address] Phys: Joselyn Calvo NP Acct: [id number] Dis Date: Status: ADM IN PHONE #: [phone] Exam Date: 0413 FAX #: [phone] Reason: dissection protocol EXAMS: CPT CODE: [id number] CTA ABD PELW CONT 34019 EXAMINATION: - CTA ABD PEL W CONT. LOCATION: H42. HISTORY: Dissection protocol, chest pain, HTN, cholecystectomy, AAA repair. COMPARISON: CTA chest 02/27/20 and 02/09/20. TECHNIQUE: CTA of the abdomen and pelvis is performed after intravenous administration of 100 cc of Isovue-370 as per protocol. MIP/3D reconstruction images are obtained. One or more the following dose reduction techniqueswere used: Automated exposure control, adjustment of mA and/or kV according to patient size, and useof iterative reconstruction technique. FINDINGS: Evaluation of abdominal viscera is limited due to phase of imaging and lack of oral contrast. Descending thoracic aorta stent graft is noted, seen on current imaging from lung bases to aortic bifurcation. Type II endoleak is the appreciated at the levelof lung bases (series 3 image 43). High attenuation contrast is noted within false lumen. Celiac artery, SMA and both renal arteries are patent, as is the ABIMAEL. Bilateral common iliacs demonstrate nonflow-limiting dissection with high attenuation contrast noted within false lumen. Right external iliacdemonstrates vascular stent. Visualized lung bases demonstrates haziness of parenchyma,, may represent pulmonary edema. Trace pericardial effusion. Cholecystectomy. Liver, spleen, pancreas, adrenals and kidneys appear unremarkable. No hydronephrosis. Bilateral perinephric stranding, nonspecific. Underdistended urinary bladder. The bowel loops appear normal in course and caliber. No bowel obstruction.Unremarkable appendix. Moderate stool in right hemicolon. No abdominal or pelvic bulky lymphadenopathy is identified. No pneumoperitoneum. Trace abdominal free fluid. Improving left retroperitoneal free fluid/hemorrhage. PAGE 1 Signed Report (CONTINUED) FAX: Papi Hood [phone] Constable: St: ADM FAX: Joselyn Dominguez NP [phone] Name: JORGE GOINS [facility] : 1985 Age/S: 34/M [address] Unit: [id number] Loc: C.ICC2 [place] [address] Phys: Joselyn Calvo NP Acct: [id number] Dis Date: Status: ADM IN PHONE #: [phone] Exam Date: 03/01/2020 0413 FAX #: [phone] Reason: dissection protocol EXAMS: CPT CODE: [id number] CTA ABD PEL W CONT 06207 (Continued) Visualized osseous str uctures demonstrate mild degenerative changes, particularly involving lower lumbar spine. 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 Improving left retroperitoneal fluid/hemorrhage. Small pericardial effusion. Other findings as above. at 0910 Reported and signed by: Christopher Ramires MD CC: Papi England MD; Joselyn Calvo NP Technologist: Alyssa Randhawa; SILVIA LAMBERT RT(R,CT) Trnscrd Dt/Tm: 03/01/2020 (09) t.[id number].[id number] Orig Print D/T: S: 03/01/2020 (0913 PAGE 2 Signed ReportBASIC METABOLIC [id number] 03:26:00 Test Item Value Reference Range Interpretation Comments SODIUM (test code = 141 mmol/L 137-145 N NA) POTASSIUM (test code 4.3 mmol/L 3.4-5.0 N = K) CHLORIDE (test code = 112 mmol/L 98-107 H CL) CARBON DIOXIDE (test 19 mmol/L 22-30 L code = CO2) GLUCOSE (test code = 145 mg/dL 74-106 H GLU) BLOOD UREA NITROGEN 12 mg/dL 9-20 N (test code = BUN) GLOMERULAR FILTRATION 90 >60 The es timated RATE (test code = glomerular filtration GFR) rate is compute d usingpatient ra ce, age (>18), sex, and serum creatinine. If anyof the needed data elements are mi ssing the Laboratory cannot compute an kevin mation of the glomerul ar filtration rate . CREATININE (test code 1.2 mg/dL 0.7-1.3 N = CREAT) CALCIUM (test code = 8.1 mg/dL 8.4-10.2 L CA) CBC W/AUTO [id number] 03:16:00 Test Item Value Reference Range Interpretation Comments WHITE BLOOD CELL (test code = 4.3 x10 3/uL 5.0-12.0 L WBC) RED BLOOD CELL (test code = 3.92 x10 6/uL 4.70-6.10 L RBC) HEMOGLOBIN (test code = HGB) 11.0 g/dL 14.0-18.0 L HEMATOCRIT (test code = HCT) 35.8 % 37.0-49.0 L MEAN CELL VOLUME (test code = 91 fL 80-94 N MCV) MEAN CELL HGB (test code = MCH) 28.1 pg 27-31 N MEAN CELL HGB CONCENTRATION 30.7 g/dL 33-37 L (test code = MCHC) RED CELL DISTRIBUTION WIDTH 14.8 % 11.5-15.5 N (test code = RDW) PLATELET COUNT (test code = 274 x10 3/uL 130-400 N PLT) MEAN PLATELET VOLUME (test code 9.9 fL 9.4-16.4 N = MPV) NEUTROPHIL % (test code = NT%) 89.4 % 43-65 H IMMATURE GRANULOCYTE % (test 0.5 % 0.0-2.0 N code = IG%) LYMPHOCYTE % (test code = LY%) 7.6 % 20.5-45.5 L MONOCYTE % (test code = MO%) 2.5 % 5.5-11.7 L EOSINOPHIL % (test code = EO%) 0.0 % 0.9-2.9 L BASOPHIL % (test code = BA%) 0.0 % 0.2-1.0 L NUCLEATED RBC % (test code = 0.0 % 0-1.0 N NRBC%) NEUTROPHIL # (test code = NT#) 3.88 x10 3/uL 2.2-4.8 N IMMATURE GRANULOCYTE # (test 0.02 x10 3/uL 0-0.03 N code = IG#) LYMPHOCYTE # (test code = LY#) 0.33 x10 3/uL 1.3-2.9 L MONOCYTE # (test code = MO#) 0.11 x10 3/uL 0.3-0.8 L EOSINOPHIL # (test code = EO#) 0.00 x10 3/uL 0.0-0.2 N BASOPHIL # (test code = BA#) 0.00 x10 3/uL 0.0-0.1 N [id number] 18:10:00 Test Item Value Reference Range Interpretation Comments GLUBED (test code = GLUBED) 104 MG/DL 74-106 N - DUP VEIN UNI [id number] 16:11:00 FAX: Papi Hood [phone] Constable: [facility]: [facility] FAX: Joselyn Dominguez NP [phone] ------ Name: JORGE GOINS [facility] : 1985 Age/S: 34/M [address] Unit #: [id number] Loc: [address] [address] Phys: Joselyn Calvo NP Acct: [id number] Dis Date: Status: ADM IN PHONE #: [phone] Exam Date: 02/29/2020 1606 FAX #: [phone] Reason: edema, pain, rule out DVTs EXAMS: CPT CODE: [id number] [address] EXAM: Ultrasound right upper extremity venous Doppler HISTORY: Right arm pain. TECHNIQUE: Grayscale real-time B-mode imaging with color flow and spectral flow Doppler analysis was performed of the right upper extremity. COMPARISON: None available time of interpretation. FINDINGS:Occlusive thrombus in the right cephalic vein. Otherwise, there is normal compressibility with no evidence of thrombus involving the remaining visualized venous structures. IMPRESSION: Occlusive thrombus in the right cephalic vein (a superficial vein). No thrombus in the deep venous system of the right arm. 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 Acct: [id number] Dis Date: Status: ADM IN PHONE #: [phone] Exam Date: 02/29/2020 1606 FAX #: [phone] Reason: edema, pain, rule out DVTs EXAMS: CPT CODE: [id number] [place] [address] (Continued) Orig Print D/T: S: 02/29/2020 (3714) PAGE 2 Signed ReportBASIC METABOLIC [id number] 04:19:00 Test Item Value Reference Range Interpretation Comments SODIUM (test code = 135 mmol/L 137-145 L NA) POTASSIUM (test code 4.2 mmol/L 3.4-5.0 N = K) CHLORIDE (test code = 112 mmol/L 98-107 H CL) CARBON DIOXIDE (test 18 mmol/L 22-30 L code = CO2) GLUCOSE (test code = 106 mg/dL 74-106 N GLU) BLOOD UREA NITROGEN 12 mg/dL 9-20 N (test code = BUN) GLOMERULAR FILTRATION 90 >60 The es timated RATE (test code = glomerular filtration GFR) rate is compute d usingpatient ra ce, age (>18), sex, and serum creatinine. If anyof the needed data elements are mi ssing the Laboratory cannot compute an kevin mation of the glomerul ar filtration rate . CREATININE (test code 1.2 mg/dL 0.7-1.3 N = CREAT) CALCIUM (test code = 7.9 mg/dL 8.4-10.2 L CA) CBC W/AUTO [id number] 04:03:00 Test Item Value Reference Range Interpretation Comments WHITE BLOOD CELL (test code = 5.0 x10 3/uL 5.0-12.0 N WBC) RED BLOOD CELL (test code = 3.82 x10 6/uL 4.70-6.10 L RBC) HEMOGLOBIN (test code = HGB) 10.8 g/dL 14.0-18.0 L HEMATOCRIT (test code = HCT) 34.6 % 37.0-49.0 L MEAN CELL VOLUME (test code = 91 fL 80-94 N MCV) MEAN CELL HGB (test code = MCH) 28.3 pg 27-31 N MEAN CELL HGB CONCENTRATION 31.2 g/dL 33-37 L (test code = MCHC) RED CELL DISTRIBUTION WIDTH 14.7 % 11.5-15.5 N (test code = RDW) PLATELET COUNT (test code = 286 x10 3/uL 130-400 N PLT) MEAN PLATELET VOLUME (test code 10.5 fL 9.4-16.4 N = MPV) NEUTROPHIL % (test code = NT%) 70.8 % 43-65 H IMMATURE GRANULOCYTE % (test 0.6 % 0.0-2.0 N code = IG%) LYMPHOCYTE % (test code = LY%) 11.0 % 20.5-45.5 L MONOCYTE % (test code = MO%) 15.2 % 5.5-11.7 H EOSINOPHIL % (test code = EO%) 2.0 % 0.9-2.9 N BASOPHIL % (test code = BA%) 0.4 % 0.2-1.0 N NUCLEATED RBC % (test code = 0.0 % 0-1.0 N NRBC%) NEUTROPHIL # (test code = NT#) 3.55 x10 3/uL 2.2-4.8 N IMMATURE GRANULOCYTE # (test 0.03 x10 3/uL 0-0.03 N code = IG#) LYMPHOCYTE # (test code = LY#) 0.55 x10 3/uL 1.3-2.9 L MONOCYTE # (test code = MO#) 0.76 x10 3/uL 0.3-0.8 N EOSINOPHIL # (test code = EO#) 0.10 x10 3/uL 0.0-0.2 N BASOPHIL # (test code = BA#) 0.02 x10 3/uL 0.0-0.1 N [id number] 19:25:00 Test Item Value Reference Range Interpretation Comments GLUBED (test code = GLUBED) 81 MG/DL 74-106 N - DUP ABD/PEL/SC [id number] 16:02:00 FAX: Papi Hood [phone] Constable: St: ADM FAX: Kleber Newby MD [phone] ------ [facility] 1985 Age[facility]S: 34[facility]M [address] Unit #: [id number] Loc: [address] [address] Phys: Kleber Newby MD Acct: [id number] Dis Date: Status: ADM IN PHONE #: [phone] Exam Date:02/28/2020 1550 FAX #: [phone] Reason: renal artery duplex EXAMS: CPT CODE: [id number] DUP ABD/PEL/SC COMP 61240 EXAMINATION: - DUP ABD/PEL/SC COMP COMPARISON: None HISTORY: Evaluate for renal artery stenosis LOCATION CODE: C3 TECHNIQUE: Multiplanar grayscale and Doppler ultrasound images of the renal arteries. FINDINGS: Both renal arteries are patent. Peak systolic velocity in the proximal right renal artery is 195 cm/s and in the proximal left renal artery is 146 cm/s. Peak systolic velocity in the aorta is 136 cm/s. The right renal to aortic ratio is 1.4 and the left renal to aortic ratio is 1.1, both of which are normal IMPRESSION: Normal renal to aortic ratios bilaterally at 1602 Reported and signed by: Vivian Youssef MD CC: Papi England MD; Kleber Newby MD Technologist: DENISA GLOVER Trnscrd Date/Time/By: 02/28/2020 (1602) : By: [email or web address] PAGE 1 Signed Report FAX: Papi Hood [phone] Constable: St: ADM FAX: Kleber Newby MD [phone] Name: JORGE GOINS [facility] : 1985 Age/S: 34/M [address] Unit #: [id number] Loc: [address] [address] Phys: Kleber Newby MD Acct: [id number] Dis Date: Status: ADM IN PHONE #: [phone] Exam Date: 02/28/2020 1550 FAX #: [phone] Reason: renal artery duplex EXAMS: CPT CODE: [id number] DUP ABD/PEL/SC COMP 82460 (Continued) Orig Print D/T: S: 02/27 (1605) PAGE 2 Signed ReportBASI METABOLIC [id number] 04:20:00 Test Item Value Reference Range Interpretation Comments SODIUM (test code = 136 mmol/L 137-145 L NA) POTASSIUM (test code 3.8 mmol/L 3.4-5.0 N = K) CHLORIDE (test code = 111 mmol/L 98-107 H CL) CARBON DIOXIDE (test 20 mmol/L 22-30 L code = CO2) GLUCOSE (test code = 85 mg/dL 74-106 N GLU) BLOOD UREA NITROGEN 14 mg/dL 9-20 N (test code = BUN) GLOMERULAR FILTRATION 75 >60 The es timated RATE (test code = glomerular filtration GFR) rate is compute d usingpatient ra ce, age (>18), sex, and serum creatinine. If anyof the needed data elements are mi ssing the Laboratory cannot compute an kevin mation of the glomerul ar filtration rate . CREATININE (test code 1.4 mg/dL 0.7-1.3 H = CREAT) CALCIUM (test code = 7.3 mg/dL 8.4-10.2 L CA) CBC W/AUTO [id number] 04:02:00 Test Item Value Reference Range Interpretation Comments WHITE BLOOD CELL (test code = 4.8 x10 3/uL 5.0-12.0 L WBC) RED BLOOD CELL (test code = 3.68 x10 6/uL 4.70-6.10 L RBC) HEMOGLOBIN (test code = HGB) 10.4 g/dL 14.0-18.0 L HEMATOCRIT (test code = HCT) 33.4 % 37.0-49.0 L MEAN CELL VOLUME (test code = 91 fL 80-94 N MCV) MEAN CELL HGB (test code = MCH) 28.3 pg 27-31 N MEAN CELL HGB CONCENTRATION 31.1 g/dL 33-37 L (test code = MCHC) RED CELL DISTRIBUTION WIDTH 14.9 % 11.5-15.5 N (test code = RDW) PLATELET COUNT (test code = 240 x10 3/uL 130-400 N PLT) MEAN PLATELET VOLUME (test code 9.7 fL 9.4-16.4 N = MPV) NEUTROPHIL % (test code = NT%) 72.6 % 43-65 H IMMATURE GRANULOCYTE % (test 0.8 % 0.0-2.0 N code = IG%) LYMPHOCYTE % (test code = LY%) 8.9 % 20.5-45.5 L MONOCYTE % (test code = MO%) 15.9 % 5.5-11.7 H EOSINOPHIL % (test code = EO%) 1.4 % 0.9-2.9 N BASOPHIL % (test code = BA%) 0.4 % 0.2-1.0 N NUCLEATED RBC % (test code = 0.0 % 0-1.0 N NRBC%) NEUTROPHIL # (test code = NT#) 3.50 x10 3/uL 2.2-4.8 N IMMATURE GRANULOCYTE # (test 0.04 x10 3/uL 0-0.03 H code = IG#) LYMPHOCYTE # (test code = LY#) 0.43 x10 3/uL 1.3-2.9 L MONOCYTE # (test code = MO#) 0.77 x10 3/uL 0.3-0.8 N EOSINOPHIL # (test code = EO#) 0.07 x10 3/uL 0.0-0.2 N BASOPHIL # (test code = BA#) 0.02 x10 3/uL 0.0-0.1 N DRUGS OF ABUSE [id number] 14:33:00 Test Item Value Reference Range Interpretation Comments TRICYCLICS QL SQN (test NEGATIVE NEG TEST PERFORMED code = TRIUR) MANUALLY USING VAZATA RAPIDTEST TCA.C UTOFF >/= 1000 NG/ML A Positive drug s creen result provides only a "PreliminaryPos itive" test result.If a confirmation of positive result is necessary, a morespecific confirmatory te st must be ordered by the physician. Drug screens are per formed for medical (i. e. treatment)purpo ses only. Unconfirm ed screening resul ts must not beused for non-medical pur poses (e.g employment testing). UR COCAINE (test code = NEGATIVE NEGATIVE CUTO FF >/= 300 NG/ML COCAU) UR THC CANABINOIDS QL NEGATIVE NEGATIVE CUTOFF >/= 20 NG/ML SQN (test code = CANU) UR AMPHETAMINE QL SQN NEGATIVE NEGATIVE CUTOFF >/= 500 NG/ML (test code = AMPHU) UR BARBITURATE QUAL NEGATIVE NEGATIVE CUTOFF > /= 200 NG/ML (test code = BARBQLU) UR BENZODIAZEPINE (test NEGATIVE NEGATIVE CUTO FF >/= 200 NG/ML code = BENZU) UR OPIATES QUAL (test POSITIVE NEGATIVE A CUTOFF >/= 300 NG/ML code = OPIAQLU) UR PHENCYCLIDINE (PCP) NEGATIVE NEGATIVE CUTOF F >/= 25 NG/ML (test code = PHENCU) DRUGS OF ABUSE [id number] 14:21:00 Test Item Value Reference Range Interpretation Comments TRICYCLICS QL SQN (test NEG code = TRIUR) UR COCAINE (test code = NEGATIVE NEGATIVE CUTO FF >/= 300 COCAU) NG/ML UR THC CANABINOIDS QL SQN NEGATIVE NEGATIVE CU TOFF >/= 20 NG/ML (test code = CANU) UR AMPHETAMINE QL SQN NEGATIVE NEGATIVE CUTOFF >/= 500 (test code = AMPHU) NG/ML UR BARBITURATE QUAL (test NEGATIVE NEGATIVE CU TOFF >/= 200 code = BARBQLU) NG/ML UR BENZODIAZEPINE (test NEGATIVE NEGATIVE CUTO FF >/= 200 code = BENZU) NG/ML UR OPIATES QUAL (test code POSITIVE NEGATIVE A C UTOFF >/= 300 = OPIAQLU) NG/ML UR PHENCYCLIDINE (PCP) NEGATIVE NEGATIVE CUTOF F >/= 25 NG/ML (test code = PHENCU) URINALYSIS [id number] 13:55:00 Test Item Value Reference Range Interpretation Comments UA COLOR (test code = COLU) Yellow Yellow UA APPEARANCE (test code = Slightly-Cloudy Clear APPU) UA GLUCOSE DIPSTICK (test Negative Negative code = DGLUU) UA BILIRUBIN DIPSTICK (test Negative Negative code = BILU) UA KETONE DIPSTICK (test code Trace mg/dL Negative A = KETU) UA SPECIFIC GRAVITY (test 1.011 <1.030 code = SGU) UA BLOOD DIPSTICK (test code 1+ Negative A = JESSICA) UA PH DIPSTICK (test code = 7.0 5.0-8.0 TYSON) UA PROTEIN DIPSTICK (test NEGATIVE mg/dL Negative code = PROU) UA UROBILINOGEN DIPSTICK 4.0 mg/dL Negative A (test code = URO) UA NITRITE DIPSTICK (test Negative Negative code = KHAI) UA LEUKOCYTE ESTERASE 2+ Negative A DIPSTICK (test code = LEUU) UA WBC (test code = WBCU) 51-100 /HPF <4-5 A UA RBC (test code = RBCU) 11-20 /HPF <4-5 A UA BACTERIA (test code = 4+ /HPF None-Rare A BACU) UA SQUAMOUS CELLS (test code 0-5 (RARE) /HPF 0-5 (RARE) = SQU) UA YEAST (BUDDING) (test code Rare /HPF None A = YEASTUBD) - US RETRO [id number] 13:42:00 FAX: Papi Hood [phone] Constable: St: ADM FAX: Riky Rich NP [phone] --------- Name: JORGE GOINS : 1985 Age/S: 34/M [address] Unit #: [id number] Loc: [place], [place] [address]Zuqc: Riky Rich NP Acct: [id number] Dis Date: Status: ADM IN PHONE #: [phone] Exam Date: 08/2019 1329 FAX #: [phone] Reason: HTN, elevated Cr, low GFR EXAMS: CPT CODE: [id number] US RETRO LTD 80664 EXAM: - US RETRO LTD HISTORY: HTN, elevated Cr, low GFR Location code:C3 COMPARISON: 02/09/2020 TECHNIQUE: Grayscale B-mode and color Doppler sonographic images of the kidneys was performed.FINDINGS: The right kidney measures 11.9 x 5.8 x 5.8cm and the left measures 12.0 x 6.2 x 5.3 cm. There is no cystic or solid renal mass lesion visualized. No hydronephrosis. There is normal renal cortical thickness and echogenicity. IMPRESSION: 1. Normal appearance of the kidneys bilaterally without hydronephrosis. 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 Acct: [id number] Dis Date: Status: ADM IN PHONE #: [phone] Exam Date: 02/27/2020 1329 FAX #: [phone] Reason: HTN, elevated Cr, low GFR EXAMS: CPT CODE: [id number] US RETRO LTD 16712 (Continued) Orig Print D/T: S: 02/27/2020 (1345) PAGE 2 Signed ReportNT PRO-BRAIN NATRIURETIC [id number] 12:13:00 Test Item Value Reference Range Interpretation Comments NT PRO-BRAIN 6920 pg/mL 0-299 H ~~~~~~~~~~~~~~~ ~~~~~~~~ NATRIURETIC PEPTI ~~~~~~~~~~ ~~~~~~~~~~~~~ (test code = PROBNP) ~~~~~~~ ~~~~~~~NT PRO-BNP IS THE REPLACEMENT ASS AY FOR BNP.~~~~~~~~~~~ ~~~~~~~~ ~~~~~~~~~~~~~~~ ~~~~~~~~ ~~~~~~~~~~~~~~~ ~~~RULE- IN CUT POINTS F OR PATIENTS WITH S USPECTED ACUTECONGESTIVE HEART FAILURE:<50 yrs old: >450 pg/mL50-75 yrs old: >900 pg/mL >75 yrs old: >1800 pg/mL A positive bias m ay occur on patients srinivasa ing BIOTINsupplemen ts. Last PROBNP result: 3460 g/dL on 02/09/20617- CTA ABD PEL W [id number] 06:04:00 Constable: St: REG -- [facility] : 1985 Age/S: 34/M [id number] Unit: [id number] Loc: [place] [address] Phys: Sonja Castrejon MD Acct: [id number] Dis Date: Status: REG ER PHONE #: [phone] Exam Date: 02/27/202040 FAX #: [phone] Reason: back pain h/o thoracic/abdominal ruptured aorti EXAMS: CPT CODE: [id number] CTA ABD PEL W CONT 13707 Location: Chest CTA , 02/27/20 TECHNIQUE: Chest CTA with and without contrast was performed on a helical scanner. 2D Coronal and sagittal images acquired on the CT workstation system by the medical technologist generalist. Volumetric imaging acquired utilizing maximum intensity protocol. Axial scanning performed from thoracic inlet through diaphragms. 100 mL of Isovue 370 was administered for contrast. Vascular protocol performed . Scanning conducted in the axial plane with 2.5mm contiguous slice thickness. The examination was performed on aupdated helical CT scanner utilizing low-dose radiation technique. Automatic exposure time was utilized to reduce radiation dose. CLINICAL HISTORY: Emergency room presentation. Back pain. History of aortic dissection COMPARISON EXAMS: Chest and abdominal CTA exam conducted on 02/09/20 FINDINGS: The pulmonary arteries are not well opacified limiting assessment for PE without large central PE. Since the prior CT exam, a endovascular stent has been placed in the thoracic aorta starting just distal to the takeoff the left subclavian artery. Nonvisualization of previously seen dissection with minimal extraluminal thrombus formation identified. There is presence of a endovascular leak starting at approximately level of the diaphragms and continuing downwards into the abdomen. Small pericardial effusion again identified similar to the prior CTA exam. Do not see minimal flap involving the takeoff of the great vessels arising from the aorta. Mild pulmonary venous engorgement and mild CHF. There is no en dobronchial lesion or pleural-based abnormality is seen. No airspace infiltrates are identified. No pathological mediastinal or hilar adenopathy is seen. Heart size is mildly prominent PAGE 1 Signed Report (CONTINUED) Constable: St: REG Name: JORGE GOINS [facility] : 1985 Age/S: 34/M [address] Unit: [id number] Loc: [place] [address] Phys: Sonja Castrejon MD Acct: [id number] Dis Date: Status: REG ER PHONE #: [phone] Exam Date: 02/27/2020 0540 FAX #: [phone] Reason: back pain h/o thoracic/abdominal ruptured aorti EXAMS: CPT CODE: [id number] CTA ABD PEL W CONT 62720 (Continued) IMPRESSION: Placement of an endovascular stent in the descending thoracic aorta situated just distal to the left subclavian artery with nonvisualization of previously seen dissection. Endovascular leak starting at approximately level of the diaphragms posterior to the graft and putamen downwards into the abdomen Mild CHF Limited assessment for PE given technical factors without large central PE Location: H3 CTA of the abdomen conducted on 02/27/20 CLINICAL HISTORY: Known aortic dissection, back pain. Emergency room presentation.. COMPARISON EXAMS: CTA assessment of the chest and abdomen of 02/09/20TECHNIQUE: A CTA scan of the abdomen was conducted scanning in the axial plane acquiring contiguous 2.5 mm slice thickness from the diaphragms through the pubic symphysis, using vascular protocol, [id number] mL of Isovue 370 injected for IV contrast. Maximum intensity projection imaging was acquired both in the sagittal and coronal plane. Volumetric imaging acquired. The examination was performed on anupdated helical CT scanner utilizing low-dose radiation technique. Automatic exposure control technique was utilized to reduce radiation dose . FINDINGS: There has been placement of an endovascular graft in the aorta extending into the abdomen with endovascular leak situated starting at approximatelythe level of the diaphragms posterior to the graft. This extending minimally above the diaphragm. The leak is fairly well PAGE 2 Signed Report (CONTINUED) Constable: St: REG Name: JORGE GOINS [facility] [place] : 1985 Age/S: 34/M [address] Unit: [id number] Loc: [place] [address] Phys: CastrejonSonja RMD Acct: [id number] Dis Date: Status: REG ER PHONE #: [phone] Exam Date: 02/27/2020 0540 FAX #: [phone] Reason: back pain h/o thoracic/abdominal ruptured aorti EXAMS: CPT CODE: [id number] CTA ABD PEL W CONT 70053 (Continued) confined. Reperfusion of the left renal artery with absence of previously seen thrombus. Both kidneys exhibit normal uptake. No significant compromise of the mesenteric vessels is identified. No definite renal infarct. Endovascular leak even extends into the iliac vessels and is fairly extensively seen posterior to the stent which extends downwards to the distal abdominal aorta. Mild stranding in the left retroperitoneum again identified. No vascular blush in this area. No hemoperitoneum. The liver demonstrates normal size, attenuation and contour without focal masses or enlargement. Patient status post cholecystectomy. No biliary distention is seen. The spleenis normal in size without focal defects, given limitation from arterial protocol employed. The adrenal glands are unremarkable without masses. The pancreas demonstrates normal contour and attenuation without definite focal masses or enlargement. There is no effacement of the peripancreatic fat to suggest an inflammatory process. There are no peripancreatic fluid collections. Mild distention of smallbowel loops likely indicative an ileus.. The IVC is unremarkable. There is no significant adenopathywithin the abdomen. The kidneys demonstrate no hydronephrosis. No fluid collections are identified. Kidneys exhibit normal functioning . IMPRESSION: Placement of an endovascular graft/stent extending from the descending thoracic aorta into the abdomen and extending downwards to the distal aortic bifurcation. Endovascular leak is seen posterior to the endovascular stent starting at approximately levelof the diaphragms and continuing downwards to the distal abdominal aorta. PAGE 3 Signed Report (CONTINUED) Constable: St: REG --- Name: JORGE GOINS [facility] : 1985 Age/S: 34/M [address] Unit: [id number]: [place] [address] Phys: Sonja Castrejon MD Acct: [id number] Dis Date: Status: REG ER PHONE #: [phone] Exam Date: 02/27/202040 FAX #: [phone] Reason: back pain h/o thoracic/abdominal ruptured aorti EXAMS: CPT CODE: [id number] CTA ABD PEL W CONT 64719 (Continued) Nonvisualization of thrombus previously identified in the left renal artery with the left kidney demonstrating functioning and uptake of contrast at 0604 Reported and signed by: Tracy Ramirez MD CC: Technologist: Candace Durbin; Olivia De Leon Trnscrd Dt/Tm: 02/27/2020 (0604) [email or web address] Orig Print D/T: S: 02/27/2020 (0607 PAGE 4 Signed Report- CT ANGIO [id number] 06:04:00 Constable: St: REG -- Name: JORGE GOINS [facility] [place] : 1985 Age/S: 34/M [address] Unit: [id number] Loc: [place] [address] Phys: Sonja Castrejon MD Acct: [id number] Dis Date: Status: REG ER PHONE #: [phone] Exam Date: 02/27/2020 0567 FAX #: [phone] Reason: Chest pain EXAMS: CPT CODE: [id number] CT ANGIO CHEST 33067 Location: Chest CTA , 02/27/20 TECHNIQUE: Chest CTA with and without contrast was performed on a helical scanner. 2D Coronal and sagittal images acquired on the CT workstation system by the medical technologist generalist. Volumetric imaging acquired utilizing maximum intensity protocol. Axial scanning performed from thoracic inlet through diaphragms. 100 mL of Isovue 370 was administered for contrast. Vascular protocol performed . Scanning conducted in the axial plane with 2.5mm contiguous slice thickness. The examination was performed on a updated helical CT scanner utilizing low-dose radiation technique. Automatic exposure time was utilized to reduce radiation dose. CLINICALHISTORY: Emergency room presentation. Back pain. History of aortic dissection COMPARISON EXAMS: Chest and abdominal CTA exam conducted on 02/09/20 FINDINGS: The pulmonary arteries are not well opacified limiting assessment for PE without large central PE. Since the prior CT exam, a endovascular stent has been placed in the thoracic aorta starting just distal to the takeoff the left subclavian artery.Nonvisualization of previously seen dissection with minimal extraluminal thrombus formation identified. There is presence of a endovascular leak starting at approximately level of the diaphragms and continuing downwards into the abdomen. Small pericardial effusion again identified similar to the priorCTA exam. Do not see minimal flap involving the takeoff of the great vessels arising from the aorta.Mild pulmonary venous engorgement and mild CHF. There is no endobronchial lesion or pleural-based abnormality is seen. No airspace infiltrates are identified. No pathological mediastinal or hilar adenop athy is seen. Heart size is mildly prominent PAGE 1 Signed Report (CONTINUED) Constable: St: REG---- [facility] 1985 [facility]S: 34[facility]M [address] Unit: [id number] Loc: [place] [address] Phys: Sonja Castrejon MD Acct: [id number] Dis Date: Status: REG ER PHONE #: [phone] Exam Date: 02/27/2020 0518 FAX #: [phone] Reason: Chest pain EXAMS: CPT CODE: [id number] CT ANGIO CHEST 23419 (Continued) IMPRESSION: Placement of an endovascular stent in the descending thoracic aorta situated just distal to the left subclavian artery with nonvisualization of previously seen dissection. Endovascular leak starting at approximately level of the diaphragms posterior to the graft and putamen downwards into the abdomen Mild CHF Limited assessment for PE given technical factors without large central PE Location: H3 CTA of the abdomen conducted on 02/27/20 CLINICAL HISTORY: Known aortic dissection, back pain. Emergency room presentation.. COMPARISON EXAMS: CTA assessment of the chest andabdomen of 02/09/20 TECHNIQUE: A CTA scan of the abdomen was conducted scanning in the axial plane acquiring contiguous 2.5 mm slice thickness from the diaphragms through the pubic symphysis, using vascular protocol, with 100 mL of Isovue 370 injected for IV contrast. Maximum intensity projection imaging was acquired both in the sagittal and coronal plane. Volumetric imaging acquired. The examination was performed on an updated helical CT scanner utilizing low- dose radiation technique. Automatic exposure control technique was utilized to reduce radiation dose . FINDINGS: There has been placement of an endovascular graft in the aorta extending into the abdomen with endovascular leak situated starting at approximately the level of the diaphragms posterior to the graft. This extending minimally above the diaphragm. The leak is fairly well PAGE 2 Signed Report (CONTINUED) Constable: St: REG--------- Name: JORGE GOINS : 1985 Age/S: 34/M [address] Unit: [id number] Loc: [place] [address] Phys: Sonja Castrejon MD Acct: [id number] Dis Date: Status: REG ER PHONE #: [phone] Exam Date: 02/27/2020 0540 FAX #: [phone] Reason: Chest pain EXAMS: CPT CODE: [id number] CT ANGIO CHEST 08691 (Continued) confined. Reperfusion of the left renal artery with absence of previously seen thrombus. Both kidneys exhibit normal uptake. No significant compromise of the mesenteric vessels is identi fied. No definite renal infarct. Endovascular leak even extends into the iliac vessels and is fairlyextensively seen posterior to the stent which extends downwards to the distal abdominal aorta. Mild stranding in the left retroperitoneum again identified. No vascular blush in this area. No hemoperiton eum. The liver demonstrates normal size, attenuation and contour without focal masses or enlargement. Patient status post cholecystectomy. No biliary distention is seen. The spleen is normal in size without focal defects, given limitation from arterial protocol employed. The adrenal glands are unremarkable without masses. The pancreas demonstrates normal contour and attenuation without definite focal masses or enlargement. There is no effacement of the peripancreatic fat to suggest an inflammatoryprocess. There are no peripancreatic fluid collections. Mild distention of small bowel loops likely i ndicative an ileus.. The IVC is unremarkable. There is no significant adenopathy within the abdomen.The kidneys demonstrate no hydronephrosis. No fluid collections are identified. Kidneys exhibit normal functioning . IMPRESSION: Placement of an endovascular graft/stent extending from the descending thoracic aorta into the abdomen and extending downwards to the distal aortic bifurcation. Endovascularleak is seen posterior to the endovascular stent starting at approximately level of the diaphragms and continuing downwards to the distal abdominal aorta. PAGE 3 Signed Report (CONTINUED) Constable: St: REG -- Name: JORGE GOINS : 1985 Age/S: 34/M [address] Unit: [id number] Loc: [place] [address] Phys: Sonja Castrejon MD Acct: [id number] Dis Date: Status: REG ER PHONE #: [phone] Exam Date: 02/27/2020 0540 FAX #: [phone] Reason: Chest pain EXAMS: CPT CODE: [id number] CTANGIO CHEST 17925 (Continued) Nonvisualization of thrombus previously identified in the left renal artery with the left kidney demonstrating functioning and uptake of contrast Electronically Signedby Tracy Ramirez MD on 02/27/2020 at 0604 Reported and signed by: Tracy Ramirez MD CC: Technologist: Candace Durbin; Olivia De Leon Trnscrd Dt/Tm: 02/27/2020 (0604) [email or web address] Orig Print D/T: S: 02/27/2020 (0607 PAGE 4 Signed ReportCoronavirus 2018 nCoV [id number] 05:51:00 Test Item Value Reference Range Interpretation Comments Coronavirus 2019 Negative NEGATIVE This test h as been nCoV Bedside (test authorize d by FDA under code = [id number]) an EUA for use byauthorized laboratories; T his test has been author ized only for the detecti on ofnucleic acid from SARS-CoV-2, not for any other viruses orpathogens; an d This test is only au thorized for the duratio n of thedeclaration that circumstances e xist justifying theauthorizatio n of emergency use o f in vitro diagnostic test sfor detection and/o r diagnosis of CO VID-19 under Fgazpbq00 4(b)(1) of the Act, 21 U.S .C. 360bbb-3(b)(1), unless theauthorizatio n is terminated or r evoked sooner. PROTHROMBIN [id number] 05:38:00 Test Item Value Reference Range Interpretation Comments PROTHROMBIN TIME 17.2 SECONDS 9.2-12.1 H PATIENT (test code = PTP) INTERNATIONAL NORMAL 1.5 The INR is to be used RATIO (test code = only for monitoring INR) ORAL ANTICOAGULANTTH ERAPY. Indication INR Value1. Prophylaxis/jaxon atment of: Venous Thro mbosis, Pulmonary Embol ism 2.0 - 3.02. Prevent ion of systemic emboli sm from: Tissue he art valves 2.0 - 3. 0 Acute myocardial infa rction (to present sys temic embolism)* 2.0 - 3.0 Valvular heart disease 2.0 - 3.0 Atria l fibrillation 2. 0 - 3.03. Mechanica l prosthetic valv es (high risk) 2.5 - 3.5 * If oral anticoagulant t herapy is elected to preventrecurren t myocardial infa rction, an INR of 2.5-3 .5 isrecommended, consistent with Food and Drug Administrationr ecommen dations. THROMBOPLASTIN TIME [id number] 05:38:00 Test Item Value Reference Range Interpretation Comments THROMBOPLASTIN TIME 38.3 SECONDS 23.4-37.0 H Therape utic Range PARTIAL (test code = for Hep dennis PTT) EFFECTIVE Heparin IU/mL a PTT Seconds0.3 64. 30.7 88.8 BEDSIDE [id number] 05:37:00 Test Item Value Reference Range Interpretation Comments BEDSIDE CREATININE (test code = 1.7 mg/dL 0.66-1.25 H CREATBED) TROPONIN I [id number] 05:36:00 Test Item Value Reference Range Interpretation Comments TROPONIN I RAPID 0.04 ng/mL 0.00-0.079 N ISTAT TROP ONIN I (test code = CRITERIA0.00-0. 08 ng/mL - TROPIRAP) Negative>0.08 n g/mL - Positive The us e of serial sampling and te sting protocol is are commended practice.An perez vated troponin level alone is often not suffi cient fordiagnosis of myocardial infarction. Tro ponin results obtaine d by different assay s may vary.Evaluation of the extent of myoca rdial damage based on increase of troponin would be valid only if similar methodology is used. BASIC METABOLIC [id number] 05:30:00 Test Item Value Reference Range Interpretation Comments SODIUM (test code = 135 mmol/L 137-145 L NA) POTASSIUM (test code 4.3 mmol/L 3.4-5.0 N = K) CHLORIDE (test code = 104 mmol/L 98-107 N CL) CARBON DIOXIDE (test 25 mmol/L 22-30 N code = CO2) GLUCOSE (test code = 94 mg/dL 74-106 N GLU) BLOOD UREA NITROGEN 15 mg/dL 9-20 N (test code = BUN) GLOMERULAR FILTRATION 64 >60 The es timated RATE (test code = glomerular filtration GFR) rate is compute d usingpatient ra ce, age (>18), sex, and serum creatinine. If anyof the needed data elements are mi ssing the Laboratory cannot compute an kevin mation of the glomerul ar filtration rate . CREATININE (test code 1.6 mg/dL 0.7-1.3 H = CREAT) CALCIUM (test code = 8.7 mg/dL 8.4-10.2 N CA) LIVER FUNCTION [id number] 05:30:00 Test Item Value Reference Range Interpretation Comments TOTAL PROTEIN (test 7.4 g/dL 6.3-8.2 N code = PROT) ALBUMIN (test code = 3.6 g/dL 3.5-5.0 N ALB) BILIRUBIN TOTAL 1.7 mg/dL 0.2-1.3 H "A positive bias may (test code = BILT) occur for patients taking Eltrombo pag(a bone marrow sti mulant used to treat thrombocytopeni a andaplastic ane ezequiel)." BILIRUBIN CONJUGATED 0 mg/dL 0-0.3 N "A posi tive bias may (test code = BILCON) occur f or patients taking Eltrombo pag(a bone marrow sti mulant used to treat thrombocytopeni a andaplastic ane ezequiel)." CON JUGATED BILIRUBIN IS TH E REPLACEMENT ASS AY FOR DIRECTBILIRUBIN . BILIRUBIN 0.7 mg/dL 0-1.1 N UNCONJUGATED (test code = BILUNC) SGOT/AST (test code 33 U/L 15-46 N = AST) SGPT/ALT (test code 21 U/L 0-34 N = ALT) ALKALINE PHOSPHATASE 142 U/L 38-126 H (test code = ALKP) [id number] 05:30:00 Test Item Value Reference Range Interpretation Comments LIPASE (test code = LIP) 25 U/L 23-300 N [id number] 05:30:00 Test Item Value Reference Range Interpretation Comments MAGNESIUM (test code = MAG) 1.6 mg/dL 1.6-2.3 N - XR CHEST 1 [id number] 05:28:00 Constable: St: REG -- Name: JORGE GOINS [facility] : 1985 Age/S: 34/M [address] Unit #: [id number] Loc: [place] [address] Phys: Sonja Castrejon MD Acct: [id number] Dis Date: Status: REG ER PHONE #: [phone] Exam Date: 02/27/2020520 FAX #: [phone] Reason: chest pain EXAMS: CPT CODE: [id number] XR CHEST 1 V 06008 AFTER HOURS SERVICE ON: 02/27/2020 5:27 AM AP Portable Chest LocationCode M12 HISTORY: chest pain FINDINGS: Study is limited by shallow inspiration. Cardiac silhouette is moderately enlarged. There is mild vascular prominence. There is no sizable pleural effusion or pneumothorax. Descending aortic stent is in place. IMPRESSION: Moderately enlarged cardiac silhouette. at 0528 Reported and signed by: Raymundo Sawyer MD CC: Technologist: Hernando Mandujano Trnscrd Date/Time/By: 02/27/2020 (0528) : By: [email or web address] PAGE 1 Signed Report Constable: St: REG Name: JORGE GOINS [facility] : 1985 Age/S: 34/M [address] Unit #: [id number] Loc: [place] [address] Phys: Sonja Castrejon MD Acct: [id number] Dis Date: Status: REG ER PHONE #: [phone] Exam Date: 02/27/2020520 FAX #: [phone] Reason: chest pain EXAMS: CPT CODE: [id number] XR CHEST 1 V 43144 (Continued) Orig Print D/T: S: 02/27/2020 (0531) PAGE 2 Signed ReportCBC W/AUTO [id number] 05:18:00 Test Item Value Reference Range Interpretation Comments WHITE BLOOD CELL (test code = 6.4 x10 3/uL 5.0-12.0 N WBC) RED BLOOD CELL (test code = 3.89 x10 6/uL 4.70-6.10 L RBC) HEMOGLOBIN (test code = HGB) 11.0 g/dL 14.0-18.0 L HEMATOCRIT (test code = HCT) 34.9 % 37.0-49.0 L MEAN CELL VOLUME (test code = 90 fL 80-94 N MCV) MEAN CELL HGB (test code = MCH) 28.3 pg 27-31 N MEAN CELL HGB CONCENTRATION 31.5 g/dL 33-37 L (test code = MCHC) RED CELL DISTRIBUTION WIDTH 14.9 % 11.5-15.5 N (test code = RDW) PLATELET COUNT (test code = 277 x10 3/uL 130-400 N PLT) MEAN PLATELET VOLUME (test code 9.7 fL 9.4-16.4 N = MPV) NEUTROPHIL % (test code = NT%) 81.3 % 43-65 H IMMATURE GRANULOCYTE % (test 0.6 % 0.0-2.0 N code = IG%) LYMPHOCYTE % (test code = LY%) 6.4 % 20.5-45.5 L MONOCYTE % (test code = MO%) 11.2 % 5.5-11.7 N EOSINOPHIL % (test code = EO%) 0.2 % 0.9-2.9 L BASOPHIL % (test code = BA%) 0.3 % 0.2-1.0 N NUCLEATED RBC % (test code = 0.0 % 0-1.0 N NRBC%) NEUTROPHIL # (test code = NT#) 5.21 x10 3/uL 2.2-4.8 H IMMATURE GRANULOCYTE # (test 0.04 x10 3/uL 0-0.03 H code = IG#) LYMPHOCYTE # (test code = LY#) 0.41 x10 3/uL 1.3-2.9 L MONOCYTE # (test code = MO#) 0.72 x10 3/uL 0.3-0.8 N EOSINOPHIL # (test code = EO#) 0.01 x10 3/uL 0.0-0.2 N BASOPHIL # (test code = BA#) 0.02 x10 3/uL 0.0-0.1 N [id number] 05:27:00 Test Item Value Reference Range Interpretation Comments MAGNESIUM (BEAKER) 1.7 mg/dL 1.6-2.6 Specimen slightly (test code = 627) hemolyzed Contact Acid Plant Operator Helper ID - PIAYA LBASIC METABOLIC [id number] 05:27:00 Test Item Value Reference Range Interpretation Comments SODIUM (BEAKER) 135 meq/L 136-145 L (test code = 381) POTASSIUM (BEAKER) 4.6 meq/L 3.5-5.1 Specimen slightly (test code = 379) hemolyzed CHLORIDE (BEAKER) 104 meq/L 98-107 (test code = 382) CO2 (BEAKER) (test 22 meq/L 22-29 code = 355) BLOOD UREA NITROGEN 22 mg/dL 7-21 H (BEAKER) (test code = 354) CREATININE (BEAKER) 1.55 mg/dL 0.57-1.25 H Specimen slightly (test code = 358) hemolyzed GLUCOSE RANDOM 110 mg/dL 70-105 H (BEAKER) (test code = 652) CALCIUM (BEAKER) 8.9 mg/dL 8.4-10.2 (test code = 697) EGFR (BEAKER) (test 63 mL/min/1.73 ESTIMA KAR GFR IS code = 1092) sq m NOT ACCURATE CREATININE CLEARANCE IN PREDICTING GLOMERULAR FILTRATION RATE . ESTIMATED GFR I S NOT APPLICABLE FOR DIALYSIS PATIEN TS. Contact Acid Plant Operator Helper ID - PIAYA LCBC W/PLT COUNT & AUTO [id number] 05:00:00 Test Item Value Reference Range Interpretation Comments WHITE BLOOD CELL COUNT (BEAKER) 8.2 K/ L 3.5-10.5 (test code = 775) RED BLOOD CELL COUNT (BEAKER) 3.78 M/ L 4.63-6.08 L (test code = 761) HEMOGLOBIN (BEAKER) (test code = 10.7 GM/DL 13.7-17.5 L 410) HEMATOCRIT (BEAKER) (test code = 34.6 % 40.1-51.0 L 411) MEAN CORPUSCULAR VOLUME (BEAKER) 91.5 fL 79.0-92.2 (test code = 753) MEAN CORPUSCULAR HEMOGLOBIN 28.3 pg 25.7-32.2 (BEAKER) (test code = 751) MEAN CORPUSCULAR HEMOGLOBIN CONC 30.9 GM/DL 32.3-36.5 L (BEAKER) (test code = 752) RED CELL DISTRIBUTION WIDTH 15.8 % 11.6-14.4 H (BEAKER) (test code = 412) PLATELET COUNT (BEAKER) (test 347 K/CU MM 150-450 code = 756) MEAN PLATELET VOLUME (BEAKER) 9.9 fL 9.4-12.4 (test code = 754) NUCLEATED RED BLOOD CELLS 0 /100 WBC 0-0 (BEAKER) (test code = 413) NEUTROPHILS RELATIVE PERCENT 79 % (BEAKER) (test code = 429) LYMPHOCYTES RELATIVE PERCENT 10 % (BEAKER) (test code = 430) MONOCYTES RELATIVE PERCENT 10 % (BEAKER) (test code = 431) EOSINOPHILS RELATIVE PERCENT 1 % (BEAKER) (test code = 432) BASOPHILS RELATIVE PERCENT 0 % (BEAKER) (test code = 437) NEUTROPHILS ABSOLUTE COUNT 6.40 K/ L 1.78-5.38 H (BEAKER) (test code = 670) LYMPHOCYTES ABSOLUTE COUNT 0.78 K/ L 1.32-3.57 L (BEAKER) (test code = 414) MONOCYTES ABSOLUTE COUNT (BEAKER) 0.82 K/ L 0.30-0.82 (test code = 415) EOSINOPHILS ABSOLUTE COUNT 0.09 K/ L 0.04-0.54 (BEAKER) (test code = 416) BASOPHILS ABSOLUTE COUNT (BEAKER) 0.02 K/ L 0.01-0.08 (test code = 417) IMMATURE GRANULOCYTES-RELATIVE 1 % 0-1 PERCENT (BEAKER) (test code = 2801) SARS-COV2/RT-PCR ([facility])2020-02-23 10:37:00 Test Item Value Reference Range Interpretation Comments SARS-COV2/RT-PCR (test Negative Not Detected, Negative, code = 8084948) See external report for linked test SARS-COV-2 PERFORMING LAB [facility] (test code = 6224871) Negative result for this test determines that SARS-CoV-2 RNA was not present in the specimen above the Limit of Detection (LOD). However, Negative results do not preclude SARS-CoV-2 infection and should not be used as the sole basis for treatment or patient management decisions. Negative results must be combined with clinical observations, patient history, and epidemiological information. A false negative result may occur if a specimen is improperly collected, transported or handled. A false negative result should be considered if patient's recent exposures or clinical presentation indicate that COVID-19 (SARS-CoV-2) is likely and diagnostic tests for other causes of illness are negative. Re-testing should be considered in cases of suspected false negatives.The limit of detection for this assay is 800 copies/mL.This SARS CoV-2 test is a real-time RT-PCR test intended for the qualitative detection of nucleic acid from SARS-CoV-2 in a nasopharyngeal swab specimen collected from individuals suspected of COVID-19 by their healthcare provider.This test has not been Food and Drug Administration (FDA) cleared or approved. This is a modified version of an approved Emergency Use Authorization (EUA) and is in the process of review by the FDA. Once authorized by the FDA, the issued EUA will be effective until the declaration that circumstances exist justifying the authorization of the emergency use ofin vitro diagnostic tests for detection and/or diagnosis of COVID-19 is terminated under Section 564(b)(2) of the Act or the EUA is revoked under Section 564(g) of the Act.Fact Sheet for Healthcare Prov iders:https://www.[employer]/sites/default/files/product/documents/Fact_Sheet_HC _Yygdafuyk_Purl_RWPY-IwR-8.pdfFact Sheet for Healthcare Patients:https://www.[employer]/sites/default/files/product/docume nts/Rmir_Engws_Cketnjbd_Hdgx_QFGQ-NaI-7.pdfPerforming Laboratory:[place] [address] [address] [address], [place] [id number] 04:59:00 Test Item Value Reference Range Interpretation Comments MAGNESIUM (BEAKER) 1.7 mg/dL 1.6-2.6 Specimen slightly (test code = 627) hemolyzed Contact Acid Plant Operator Helper ID - PIAYA LBASIC METABOLIC [id number] 04:59:00 Test Item Value Reference Range Interpretation Comments SODIUM (BEAKER) 138 meq/L 136-145 (test code = 381) POTASSIUM (BEAKER) 4.2 meq/L 3.5-5.1 Specimen slightly (test code = 379) hemolyzed CHLORIDE (BEAKER) 107 meq/L 98-107 (test code = 382) CO2 (BEAKER) (test 22 meq/L 22-29 code = 355) BLOOD UREA NITROGEN 21 mg/dL 7-21 (BEAKER) (test code = 354) CREATININE (BEAKER) 1.57 mg/dL 0.57-1.25 H Specimen slightly (test code = 358) hemolyzed GLUCOSE RANDOM 92 mg/dL 70-105 (BEAKER) (test code = 652) CALCIUM (BEAKER) 8.7 mg/dL 8.4-10.2 (test code = 697) EGFR (BEAKER) (test 62 mL/min/1.73 ESTIMA KAR GFR IS code = 1092) sq m NOT ACCURATE CREATININE CLEARANCE IN PREDICTING GLOMERULAR FILTRATION RATE . ESTIMATED GFR I S NOT APPLICABLE FOR DIALYSIS PATIEN TS. Contact Acid Plant Operator Helper ID - PIAYA LCBC W/PLT COUNT & AUTO [id number] 04:27:00 Test Item Value Reference Range Interpretation Comments WHITE BLOOD CELL COUNT (BEAKER) 6.6 K/ L 3.5-10.5 (test code = 775) RED BLOOD CELL COUNT (BEAKER) 3.57 M/ L 4.63-6.08 L (test code = 761) HEMOGLOBIN (BEAKER) (test code = 10.4 GM/DL 13.7-17.5 L 410) HEMATOCRIT (BEAKER) (test code = 32.7 % 40.1-51.0 L 411) MEAN CORPUSCULAR VOLUME (BEAKER) 91.6 fL 79.0-92.2 (test code = 753) MEAN CORPUSCULAR HEMOGLOBIN 29.1 pg 25.7-32.2 (BEAKER) (test code = 751) MEAN CORPUSCULAR HEMOGLOBIN CONC 31.8 GM/DL 32.3-36.5 L (BEAKER) (test code = 752) RED CELL DISTRIBUTION WIDTH 15.9 % 11.6-14.4 H (BEAKER) (test code = 412) PLATELET COUNT (BEAKER) (test 312 K/CU MM 150-450 code = 756) MEAN PLATELET VOLUME (BEAKER) 10.2 fL 9.4-12.4 (test code = 754) NUCLEATED RED BLOOD CELLS 0 /100 WBC 0-0 (BEAKER) (test code = 413) NEUTROPHILS RELATIVE PERCENT 76 % (BEAKER) (test code = 429) LYMPHOCYTES RELATIVE PERCENT 12 % (BEAKER) (test code = 430) MONOCYTES RELATIVE PERCENT 10 % (BEAKER) (test code = 431) EOSINOPHILS RELATIVE PERCENT 1 % (BEAKER) (test code = 432) BASOPHILS RELATIVE PERCENT 0 % (BEAKER) (test code = 437) NEUTROPHILS ABSOLUTE COUNT 4.98 K/ L 1.78-5.38 (BEAKER) (test code = 670) LYMPHOCYTES ABSOLUTE COUNT 0.78 K/ L 1.32-3.57 L (BEAKER) (test code = 414) MONOCYTES ABSOLUTE COUNT (BEAKER) 0.68 K/ L 0.30-0.82 (test code = 415) EOSINOPHILS ABSOLUTE COUNT 0.04 K/ L 0.04-0.54 (BEAKER) (test code = 416) BASOPHILS ABSOLUTE COUNT (BEAKER) 0.01 K/ L 0.01-0.08 (test code = 417) IMMATURE GRANULOCYTES-RELATIVE 1 % 0-1 PERCENT (BEAKER) (test code = 2801) [id number] 04:56:00 Test Item Value Reference Range Interpretation Comments MAGNESIUM (BEAKER) (test code = 2.0 mg/dL 1.6-2.6 627) Contact Acid Plant Operator Helper ID - PIAYA LBASIC METABOLIC [id number] 04:56:00 Test Item Value Reference Range Interpretation Comments SODIUM (BEAKER) 139 meq/L 136-145 (test code = 381) POTASSIUM (BEAKER) 4.0 meq/L 3.5-5.1 (test code = 379) CHLORIDE (BEAKER) 109 meq/L 98-107 H (test code = 382) CO2 (BEAKER) (test 19 meq/L 22-29 L code = 355) BLOOD UREA NITROGEN 28 mg/dL 7-21 H (BEAKER) (test code = 354) CREATININE (BEAKER) 1.93 mg/dL 0.57-1.25 H (test code = 358) GLUCOSE RANDOM 106 mg/dL 70-105 H (BEAKER) (test code = 652) CALCIUM (BEAKER) 8.5 mg/dL 8.4-10.2 (test code = 697) EGFR (BEAKER) (test 49 mL/min/1.73 ESTIMA KAR GFR IS code = 1092) sq m NOT ACCURATE CREATININE CLEARANCE IN PREDICTING GLOMERULAR FILTRATION RATE . ESTIMATED GFR I S NOT APPLICABLE FOR DIALYSIS PATIEN TS. Contact Acid Plant Operator Helper ID - PIAYA LCBC W/PLT COUNT & AUTO [id number] 04:35:00 Test Item Value Reference Range Interpretation Comments WHITE BLOOD CELL COUNT (BEAKER) 7.7 K/ L 3.5-10.5 (test code = 775) RED BLOOD CELL COUNT (BEAKER) 3.62 M/ L 4.63-6.08 L (test code = 761) HEMOGLOBIN (BEAKER) (test code = 10.3 GM/DL 13.7-17.5 L 410) HEMATOCRIT (BEAKER) (test code = 32.9 % 40.1-51.0 L 411) MEAN CORPUSCULAR VOLUME (BEAKER) 90.9 fL 79.0-92.2 (test code = 753) MEAN CORPUSCULAR HEMOGLOBIN 28.5 pg 25.7-32.2 (BEAKER) (test code = 751) MEAN CORPUSCULAR HEMOGLOBIN CONC 31.3 GM/DL 32.3-36.5 L (BEAKER) (test code = 752) RED CELL DISTRIBUTION WIDTH 15.9 % 11.6-14.4 H (BEAKER) (test code = 412) PLATELET COUNT (BEAKER) (test 335 K/CU MM 150-450 code = 756) MEAN PLATELET VOLUME (BEAKER) 10.1 fL 9.4-12.4 (test code = 754) NUCLEATED RED BLOOD CELLS 0 /100 WBC 0-0 (BEAKER) (test code = 413) NEUTROPHILS RELATIVE PERCENT 79 % (BEAKER) (test code = 429) LYMPHOCYTES RELATIVE PERCENT 10 % (BEAKER) (test code = 430) MONOCYTES RELATIVE PERCENT 10 % (BEAKER) (test code = 431) EOSINOPHILS RELATIVE PERCENT 1 % (BEAKER) (test code = 432) BASOPHILS RELATIVE PERCENT 0 % (BEAKER) (test code = 437) NEUTROPHILS ABSOLUTE COUNT 6.06 K/ L 1.78-5.38 H (BEAKER) (test code = 670) LYMPHOCYTES ABSOLUTE COUNT 0.77 K/ L 1.32-3.57 L (BEAKER) (test code = 414) MONOCYTES ABSOLUTE COUNT (BEAKER) 0.74 K/ L 0.30-0.82 (test code = 415) EOSINOPHILS ABSOLUTE COUNT 0.05 K/ L 0.04-0.54 (BEAKER) (test code = 416) BASOPHILS ABSOLUTE COUNT (BEAKER) 0.01 K/ L 0.01-0.08 (test code = 417) IMMATURE GRANULOCYTES-RELATIVE 1 % 0-1 PERCENT (BEAKER) (test code = 2801) BASIC METABOLIC [id number] 13:36:00 Test Item Value Reference Range Interpretation Comments SODIUM (BEAKER) 134 meq/L 136-145 L (test code = 381) POTASSIUM (BEAKER) 3.8 meq/L 3.5-5.1 (test code = 379) CHLORIDE (BEAKER) 106 meq/L 98-107 (test code = 382) CO2 (BEAKER) (test 20 meq/L 22-29 L code = 355) BLOOD UREA NITROGEN 35 mg/dL 7-21 H (BEAKER) (test code = 354) CREATININE (BEAKER) 2.22 mg/dL 0.57-1.25 H (test code = 358) GLUCOSE RANDOM 125 mg/dL 70-105 H (BEAKER) (test code = 652) CALCIUM (BEAKER) 8.5 mg/dL 8.4-10.2 (test code = 697) EGFR (BEAKER) (test 42 mL/min/1.73 ESTIMA KAR GFR IS code = 1092) sq m NOT ACCURATE CREATININE CLEARANCE IN PREDICTING GLOMERULAR FILTRATION RATE . ESTIMATED GFR I S NOT APPLICABLE FOR DIALYSIS PATIEN TS. Contact Acid Plant Operator Helper ID - NEHEMIAH [id number] 05:50:00 Test Item Value Reference Range Interpretation Comments MAGNESIUM (BEAKER) 2.4 mg/dL 1.6-2.6 Specimen slightly (test code = 627) hemolyzed Contact Acid Plant Operator Helper ID - EDASIBASIC METABOLIC [id number] 05:50:00 Test Item Value Reference Range Interpretation Comments SODIUM (BEAKER) 137 meq/L 136-145 (test code = 381) POTASSIUM (BEAKER) 4.3 meq/L 3.5-5.1 Specimen slightly (test code = 379) hemolyzed CHLORIDE (BEAKER) 108 meq/L 98-107 H (test code = 382) CO2 (BEAKER) (test 18 meq/L 22-29 L code = 355) BLOOD UREA NITROGEN 35 mg/dL 7-21 H (BEAKER) (test code = 354) CREATININE (BEAKER) 2.40 mg/dL 0.57-1.25 H Specimen slightly (test code = 358) hemolyzed GLUCOSE RANDOM 119 mg/dL 70-105 H (BEAKER) (test code = 652) CALCIUM (BEAKER) 8.7 mg/dL 8.4-10.2 (test code = 697) EGFR (BEAKER) (test 38 mL/min/1.73 ESTIMA KAR GFR IS code = 1092) sq m NOT ACCURATE CREATININE CLEARANCE IN PREDICTING GLOMERULAR FILTRATION RATE . ESTIMATED GFR I S NOT APPLICABLE FOR DIALYSIS PATIEN TS. Contact Acid Plant Operator Helper ID - EDASICBC W/PLT COUNT & AUTO [id number] 05:18:00 Test Item Value Reference Range Interpretation Comments WHITE BLOOD CELL COUNT (BEAKER) 10.6 K/ L 3.5-10.5 H (test code = 775) RED BLOOD CELL COUNT (BEAKER) 3.75 M/ L 4.63-6.08 L (test code = 761) HEMOGLOBIN (BEAKER) (test code = 10.7 GM/DL 13.7-17.5 L 410) HEMATOCRIT (BEAKER) (test code = 33.7 % 40.1-51.0 L 411) MEAN CORPUSCULAR VOLUME (BEAKER) 89.9 fL 79.0-92.2 (test code = 753) MEAN CORPUSCULAR HEMOGLOBIN 28.5 pg 25.7-32.2 (BEAKER) (test code = 751) MEAN CORPUSCULAR HEMOGLOBIN CONC 31.8 GM/DL 32.3-36.5 L (BEAKER) (test code = 752) RED CELL DISTRIBUTION WIDTH 15.6 % 11.6-14.4 H (BEAKER) (test code = 412) PLATELET COUNT (BEAKER) (test 401 K/CU MM 150-450 code = 756) MEAN PLATELET VOLUME (BEAKER) 10.5 fL 9.4-12.4 (test code = 754) NUCLEATED RED BLOOD CELLS 0 /100 WBC 0-0 (BEAKER) (test code = 413) NEUTROPHILS RELATIVE PERCENT 83 % (BEAKER) (test code = 429) LYMPHOCYTES RELATIVE PERCENT 7 % (BEAKER) (test code = 430) MONOCYTES RELATIVE PERCENT 9 % (BEAKER) (test code = 431) EOSINOPHILS RELATIVE PERCENT 0 % (BEAKER) (test code = 432) BASOPHILS RELATIVE PERCENT 0 % (BEAKER) (test code = 437) NEUTROPHILS ABSOLUTE COUNT 8.84 K/ L 1.78-5.38 H (BEAKER) (test code = 670) LYMPHOCYTES ABSOLUTE COUNT 0.69 K/ L 1.32-3.57 L (BEAKER) (test code = 414) MONOCYTES ABSOLUTE COUNT (BEAKER) 0.94 K/ L 0.30-0.82 H (test code = 415) EOSINOPHILS ABSOLUTE COUNT 0.03 K/ L 0.04-0.54 L (BEAKER) (test code = 416) BASOPHILS ABSOLUTE COUNT (BEAKER) 0.02 K/ L 0.01-0.08 (test code = 417) IMMATURE GRANULOCYTES-RELATIVE 1 % 0-1 PERCENT (BEAKER) (test code = 2801) RAD, CHEST, 1 VIEW, NON [id number] 22:47:00Reason for exam:->central line placement confirmationShould this be performed at the bedside?->YesFINAL REPORT Chest one view. Clinical history: central line placement confirmation Comparison: Chest radiograph 02/18/2020. Technique: A single frontal view of the chest was obtained. Findings:There is a right IJ central venous catheter with tip in the SVC.The cardiac silhouette isenlarged. There is an endovascular stent in the descending thoracic aorta. There are hazy airspace opacities in the right lung base, which may represent pneumonia and/or atelectasis. There is no pulmonary edema, pleural effusion or pneumothorax. The osseous structures are unremarkable. Signed: Alley Garcia [facility] Verified Date/Time: 02/20/2020 22:47:25 [id number] 19:09:00 Test Item Value Reference Range Interpretation Comments MAGNESIUM (BEAKER) 2.4 mg/dL 1.6-2.6 Specimen slightly (test code = 627) hemolyzed Contact Acid Plant Operator Helper ID - NTPBASIC METABOLIC [id number] 18:34:00 Test Item Value Reference Range Interpretation Comments SODIUM (BEAKER) 136 meq/L 136-145 (test code = 381) POTASSIUM (BEAKER) 3.8 meq/L 3.5-5.1 (test code = 379) CHLORIDE (BEAKER) 107 meq/L 98-107 (test code = 382) CO2 (BEAKER) (test 20 meq/L 22-29 L code = 355) BLOOD UREA NITROGEN 31 mg/dL 7-21 H (BEAKER) (test code = 354) CREATININE (BEAKER) 1.91 mg/dL 0.57-1.25 H (test code = 358) GLUCOSE RANDOM 125 mg/dL 70-105 H (BEAKER) (test code = 652) CALCIUM (BEAKER) 8.5 mg/dL 8.4-10.2 (test code = 697) EGFR (BEAKER) (test 49 mL/min/1.73 ESTIMA KAR GFR IS code = 1092) sq m NOT ACCURATE CREATININE CLEARANCE IN PREDICTING GLOMERULAR FILTRATION RATE . ESTIMATED GFR I S NOT APPLICABLE FOR DIALYSIS PATIEN TS. Contact Acid Plant Operator Helper ID - NTPPOCT-GLUCOSE [id number] 17:52:00 Test Item Value Reference Range Interpretation Comments POC-GLUCOSE METER 115 mg/dL 70-110 H : TESTED A T [facility] 6720 (BEAKER) (test code = [facility], 1538) [id number]: Contact Acid Plant Operator Helper/Techni lana ID = [id number] for [facility] SVET[facility] RICHAR[facility] BASIC METABOLIC [id number] 12:43:00 Test Item Value Reference Range Interpretation Comments SODIUM (BEAKER) 134 meq/L 136-145 L (test code = 381) POTASSIUM (BEAKER) 3.7 meq/L 3.5-5.1 Specimen slightly (test code = 379) hemolyzed CHLORIDE (BEAKER) 105 meq/L 98-107 (test code = 382) CO2 (BEAKER) (test 19 meq/L 22-29 L code = 355) BLOOD UREA NITROGEN 32 mg/dL 7-21 H (BEAKER) (test code = 354) CREATININE (BEAKER) 1.94 mg/dL 0.57-1.25 H Specimen slightly (test code = 358) hemolyzed GLUCOSE RANDOM 124 mg/dL 70-105 H (BEAKER) (test code = 652) CALCIUM (BEAKER) 8.6 mg/dL 8.4-10.2 (test code = 697) EGFR (BEAKER) (test 49 mL/min/1.73 ESTIMA KAR GFR IS code = 1092) sq m NOT ACCURATE CREATININE CLEARANCE IN PREDICTING GLOMERULAR FILTRATION RATE . ESTIMATED GFR I S NOT APPLICABLE FOR DIALYSIS PATIEN TS. Contact Acid Plant Operator Helper ID - NTPPOCT-GLUCOSE [id number] 11:46:00 Test Item Value Reference Range Interpretation Comments POC-GLUCOSE METER 132 mg/dL 70-110 H : TESTED A T [facility] 6720 (BEAKER) (test code = [facility], 1538) [id number]: Contact Acid Plant Operator Helper/Techni lana ID = [id number] for [facility] LDIVSVETA VILLEDA [id number] 05:50:00 Test Item Value Reference Range Interpretation Comments MAGNESIUM (BEAKER) (test code = 1.9 mg/dL 1.6-2.6 627) Contact Acid Plant Operator Helper ID - NTPBASIC METABOLIC [id number] 05:50:00 Test Item Value Reference Range Interpretation Comments SODIUM (BEAKER) 136 meq/L 136-145 (test code = 381) POTASSIUM (BEAKER) 4.0 meq/L 3.5-5.1 (test code = 379) CHLORIDE (BEAKER) 108 meq/L 98-107 H (test code = 382) CO2 (BEAKER) (test 19 meq/L 22-29 L code = 355) BLOOD UREA NITROGEN 30 mg/dL 7-21 H (BEAKER) (test code = 354) CREATININE (BEAKER) 1.96 mg/dL 0.57-1.25 H (test code = 358) GLUCOSE RANDOM 129 mg/dL 70-105 H (BEAKER) (test code = 652) CALCIUM (BEAKER) 8.6 mg/dL 8.4-10.2 (test code = 697) EGFR (BEAKER) (test 48 mL/min/1.73 ESTIMA KAR GFR IS code = 1092) sq m NOT ACCURATE CREATININE CLEARANCE IN PREDICTING GLOMERULAR FILTRATION RATE . ESTIMATED GFR I S NOT APPLICABLE FOR DIALYSIS PATIEN TS. Contact Acid Plant Operator Helper ID - NTPTROPONIN [id number] 05:39:00 Test Item Value Reference Range Interpretation Comments TROPONIN I (BEAKER) (test code = 0.08 ng/mL 0.00-0.03 H 397) Troponin I (TnI) levels must be interpreted in the context of the presenting symptoms and the clinical findings. Elevated TnI levels indicate myocardial damage, but are not specific for ischemic heart disease. Elevated TnI levels are seen in patients with other cardiac conditions (including myocarditis and congestive heart failure), and slight TnI elevations occur in patients with other conditions, including sepsis, renal failure, acidosis, acute neurological disease, and persistent tachyarrhythmia.Contact Acid Plant Operator Helper ID - NTPCBC W/PLT COUNT & AUTO [id number] 05:36:00 Test Item Value Reference Range Interpretation Comments WHITE BLOOD CELL COUNT (BEAKER) 12.7 K/ L 3.5-10.5 H (test code = 775) RED BLOOD CELL COUNT (BEAKER) 3.59 M/ L 4.63-6.08 L (test code = 761) HEMOGLOBIN (BEAKER) (test code = 10.3 GM/DL 13.7-17.5 L 410) HEMATOCRIT (BEAKER) (test code = 32.2 % 40.1-51.0 L 411) MEAN CORPUSCULAR VOLUME (BEAKER) 89.7 fL 79.0-92.2 (test code = 753) MEAN CORPUSCULAR HEMOGLOBIN 28.7 pg 25.7-32.2 (BEAKER) (test code = 751) MEAN CORPUSCULAR HEMOGLOBIN CONC 32.0 GM/DL 32.3-36.5 L (BEAKER) (test code = 752) RED CELL DISTRIBUTION WIDTH 15.3 % 11.6-14.4 H (BEAKER) (test code = 412) PLATELET COUNT (BEAKER) (test 340 K/CU MM 150-450 code = 756) MEAN PLATELET VOLUME (BEAKER) 9.9 fL 9.4-12.4 (test code = 754) NUCLEATED RED BLOOD CELLS 0 /100 WBC 0-0 (BEAKER) (test code = 413) NEUTROPHILS RELATIVE PERCENT 87 % (BEAKER) (test code = 429) LYMPHOCYTES RELATIVE PERCENT 5 % (BEAKER) (test code = 430) MONOCYTES RELATIVE PERCENT 7 % (BEAKER) (test code = 431) EOSINOPHILS RELATIVE PERCENT 0 % (BEAKER) (test code = 432) BASOPHILS RELATIVE PERCENT 0 % (BEAKER) (test code = 437) NEUTROPHILS ABSOLUTE COUNT 11.04 K/ L 1.78-5.38 H (BEAKER) (test code = 670) LYMPHOCYTES ABSOLUTE COUNT 0.65 K/ L 1.32-3.57 L (BEAKER) (test code = 414) MONOCYTES ABSOLUTE COUNT (BEAKER) 0.83 K/ L 0.30-0.82 H (test code = 415) EOSINOPHILS ABSOLUTE COUNT 0.03 K/ L 0.04-0.54 L (BEAKER) (test code = 416) BASOPHILS ABSOLUTE COUNT (BEAKER) 0.02 K/ L 0.01-0.08 (test code = 417) IMMATURE GRANULOCYTES-RELATIVE 1 % 0-1 PERCENT (BEAKER) (test code = 2802) SARS-COV2/RT-PCR ([facility])2020-02-19 17:19:00 Test Item Value Reference Range Interpretation Comments SARS-COV2/RT-PCR (test Negative Not Detected, Negative, code = 4796858) See external report for linked test SARS-COV-2 PERFORMING LAB [facility] (test code = 0943665) Negative result for this test determines that SARS-CoV-2 RNA was not present in the specimen above the Limit of Detection (LOD). However, Negative results do not preclude SARS-CoV-2 infection and should not be used as the sole basis for treatment or patient management decisions. Negative results must be combined with clinical observations, patient history, and epidemiological information. A false negative result may occur if a specimen is improperly collected, transported or handled. A false negative result should be considered if patient's recent exposures or clinical presentation indicate that COVID-19 (SARS-CoV-2) is likely and diagnostic tests for other causes of illness are negative. Re-testing should be considered in cases of suspected false negatives.The limit of detection for this assay is 800 copies/mL.This SARS CoV-2 test is a real-time RT-PCR test intended for the qualitative detection of nucleic acid from SARS-CoV-2 in a nasopharyngeal swab specimen collected from individuals suspected of COVID-19 by their healthcare provider.This test has not been Food and Drug Administration (FDA) cleared or approved. This is a modified version of an approved Emergency Use Authorization (EUA) and is in the process of review by the FDA. Once authorized by the FDA, the issued EUA will be effective until the declaration that circumstances exist justifying the authorization of the emergency use ofin vitro diagnostic tests for detection and/or diagnosis of COVID-19 is terminated under Section 564(b)(2) of the Act or the EUA is revoked under Section 564(g) of the Act.Fact Sheet for Healthcare Prov iders:https://www.[facility].[employer]/sites/default/files/product/documents/Fact_Sheet_HC _Temcdjtvk_Qmyn_DCFE-NbZ-3.pdfFact Sheet for Healthcare Patients:https://www.[facility].[employer]/sites/default/files/product/docume nts/Rcrx_Iwzli_Sdgkeany_Wqir_QNMO-QiQ-0.pdfPerforming Laboratory:[facility] [address].[place], [place] [address]XGX, CHEST, ABDOMEN - PELVIS, FOR [id number] 12:39:00TEVAR for complicated 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 C/o left chest and back pain. Iodine allergy -emergency premedication - attending cardiac surgeon aware (Dr. Morton) of possibility of iodine allergy reaction. Benefits of the scan outweigh the risks.Unlisted Reason for Exam - Click Yes and Enter Reason Below->NoAddendum BeginsREPORT STATUS:A I agree with the nonvascular findings with exceptions and emphasis as below:*Diffuse fatty infiltration of the liver with mild splenomegaly.*There isrelative ischemia in the left upper medial kidney, likely due to the dissection in the left renal artery discussed in the vascular findings.*The mildly hyperdense left retroperitoneal collection is most consistent with a retroperitoneal hematoma which is unchanged in size compared to 02/09/2020.*There are diffuse groundglass opacities with prominent interstitial changes along bases. These are indeterminate. There is likely pulmonary edema. However, underlying fibrosis in the lung bases is also possibl e. Signed: Jay Steele [facility] Verified Date/Time: 02/19/2020 12:39:42 Reading Location: [address] Radiology Reading RoomAddendum EndsFINAL REPORT CT angiography of the thoracoabdominal aorta and pelvic arteries, 19-Feb-20 INDICATION: This is a 34 year old male with or aortic dissection presents for assessment. TECHNIQUE: Spiral acquisition before and during intravenous contrast administration using a [employer] multidetector CT scanner. Images were obtained before and during the dynamic passage of intravenous contrast material. Multi-planar 3-D volume-rendering reconstructionwas performed using an independent workstation interactively by the interpreting physician as well as the 3-D specialist for optimal visualisation of the thoracoabdominal aorta, the pelvic arteries as well as its proximal branches. Please refer to the contrast sheet scanned in the EPIC system for the amount and route of contrast given. This exam was performed according to our departmental dose-optimisation programme, which includes automated exposure control, adjustment of the mA and/or kV accordingto patient size and/or use of iterative reconstruction technique. Dose modulation, iterative reconstruction, and/or weight based adjustment of the mA/kV was utilized to reduce the radiation dose to as low as reasonably achievable. FINDINGS: VASCULAR:- The central pulmonary artery is prominent. In addition, the right ventricle and the right atrium are also enlarged, as well as bulging of the interatrial septum is seen towards the left atrium. Correlate with appropriate aetiology. Mild pericardial effusion is seen adjacent to the right atrium. The cardiac chambers demonstrate normal atrioventricular and ventriculoarterial concordance, and systemic and pulmonary venous return. The left ventricle is normal in size. No mitral annular calcification is seen and no aortic valvular calcification is present. Coronary artery origins are normal. No calcification is seen. The left main coronary artery, proximal and mid and distal LAD, the proximal left circumflex artery, and much of the RCA are seen to be patent. The aortic root, and ascending thoracic aorta is unremarkable. The transverse arch is unremarkable. An endostent is identified in the descending thoracic aorta, with the endostent commences in close proximity to the takeoff of the left subclavian artery and the endostent extends inferiorly, and terminates inferior to the takeoff of the ABIMAEL. Presumably, this is for the treatment of dissection. The endostent is well- positioned in the true lumen. No type I endoleak is seen. Much of the false lumen in the abdominal aorta is still enhanced and could be explained by contrast traveling cranially from the residual dissection near the aortic bifurcation. However, at image 145 in the false lumen, enhancement is identified and there is connection to the intercostal arteries, for example at image 144, a t image 154, to name a few example, presumably that could be a contribution of type II endoleak. Continue follow-up can be made in future examination to monitor stability/progression. Residual dissection is identified at the aortic bifurcation, and the dissection flap extends into the left common iliac artery, sparing remainder of the the left pelvic arteries, and the dissection also extends into theright common iliac artery, and 2 short vascular stents are present, covering majority of the right external iliac artery. The right common femoral artery is unremarkable. The left and the right SFA, bilaterally, are widely patent, where visualised. The residual dissection flap likely involves the proximal right internal iliac artery. The coeliac axis, SMA, ABIMAEL still well enhanced by contrast. A stenosis identified in the proximal coeliac axis, and in the absence of abdominal symptoms, this could merely be an incidental finding. Replaced right hepatic artery is identified. The dissection extends into the origin of the left renal artery, as well as in the proximal right renal artery. The left and the right renal artery are still well enhanced by contrast. The arch vessel branching pattern is normaland the visualised arch vessels are widely patent proximally. The left common carotid artery arises from the innominate artery, a normal variant. Quantitative dimensions of the aorta are as follows: 3.2 cm at the sinuses of Valsalva (the sino-tubular junction is preserved); 2.9 cm at the proximal ascending thoracic aorta; 3.5 cm at the mid ascending aorta; 2.9 cm at the distal ascending aorta; 3.1 cmat the mid transverse arch; 3.6 x 3.4 at the proximal descending aorta; 3.4 x 2.9 cm at the mid descending aorta; 3.4 x 3.2 cm at the diaphragmatic hiatus. In the abdomen, the aorta measures 2.4 cm at the mesenteric segment; 2.3 cm at the renal segment,; and 2.2 cm at the aortic bifurcation. NON-VASCULAR: The thyroid gland is unremarkable. The chest wall and mediastinum has no acute abnormality is cornelio ntified. Some small lymph nodes are seen, not enlarged, considered nonspecific in nature. In the lung windows, no endobronchial lesion is seen, and no pleural effusion is identified. There are patchy opacity identified in the lung bases, uncertain if this is interstitial changes versus groundglass opacities. An addendum will be dictated regarding the pulmonary findings. No discrete pulmonary nodule is identified. In the abdomen, the liver and spleen appears unremarkable. The liver edge is smooth. Noabnormal enhancing structure is identified. The spleen measures 13.6 cm in AP orientation at image 119 that is mildly prominent. Correlate appropriate aetiology. Mild fatty infiltration of the liver isnoted, with precontrast Hounsfield unit less than 40. Patient is post cholecystectomy. The pancreas appears unremarkable. The adrenal glands are not enlarged. No acute renal pathology is seen and no hydronephrosis or perirenal fluid collection is identified. By visual estimation, the more medial aspect of the left kidney, for example at image 209 has less enhancement than remainder of the left kidneyas well as the right kidney, presumably as a result of the dissection involving the proximal left renal artery despite the left renal artery is still well enhanced by contrast. Similar findings identified in the delay images. A tiny hypodensity is identified in the left kidney at image 214, too small to characterise. Bowel is not well assessed by CT angiography as enteric contrast is not given. No obvious bowel dilation is identified. The appendix appears unremarkable. The prostate gland is unremarkable. The bladder is not distended. No free air is identified abdomen and pelvis and no obvious free fluid is identified abdomen and pelvis. No significant retroperitoneal adenopathy is identified. In the bony windows, no acute bony pathology is seen. No dural ectasia is identified. CONCLUSIONS: 1. Unremarkable ascending thoracic aorta and of the transverse arch. Local endostent system is identified in the descending thoracic aorta extending into the abdominal aorta with the proximal margin in close proximity to the takeoff of the left subclavian artery and the endostent terminates inferior to the ABIMAEL. The endostent is well-positioned in the true lumen of the aortic dissection and residual dissection is seen near the aortic bifurcation extends into the pelvic arteries as described above. Contrast is seen traveling cranially from the false lumen into the abdominal aorta in the distal descending thoracic aorta. In addition, there is also patchy enhancement identified in the descending thoracic aorta for example at image 145, with connection to the intercostal arteries representing type II endoleak. Attention to follow-up can be made in future examination to document stability/progress. Quantitative dimensions of the thoracoabdominal aorta as described above. 2. Refer to the above regarding the status of the mesenteric and renal arteries. 3. Normal coronary artery origins. No coronary artery calcification is seen. Major epicardial coronary arteries are seen to be widely patent. The central pulmonary artery is prominent as well as dilation of the right ventricle and the right atrium is present. Correlate appropriate clinical aetiology. There is no evidence of central pulmonary artery embolism. 4. Pulmonary findings as described above. Addendum will be dictated thereafter. 5. Other findings as described above. Hepatic steatosis is identified. 6. An addendum will be dictated regarding the non-vascular findings by the Master Esthetician Radiologist. Signed: Bouchra Jorgensen Verified Date/Time: 02/19/2020 09:24:36 Reading Location: [place] [id number] CT Reading Room [id number] 06:29:00 Test Item Value Reference Range Interpretation Comments MAGNESIUM (BEAKER) (test code = 1.6 mg/dL 1.6-2.6 627) Contact Acid Plant Operator Helper ID - PIAYA LBASIC METABOLIC [id number] 06:29:00 Test Item Value Reference Range Interpretation Comments SODIUM (BEAKER) 134 meq/L 136-145 L (test code = 381) POTASSIUM (BEAKER) 4.3 meq/L 3.5-5.1 (test code = 379) CHLORIDE (BEAKER) 103 meq/L 98-107 (test code = 382) CO2 (BEAKER) (test 21 meq/L 22-29 L code = 355) BLOOD UREA NITROGEN 25 mg/dL 7-21 H (BEAKER) (test code = 354) CREATININE (BEAKER) 1.65 mg/dL 0.57-1.25 H (test code = 358) GLUCOSE RANDOM 134 mg/dL 70-105 H (BEAKER) (test code = 652) CALCIUM (BEAKER) 8.4 mg/dL 8.4-10.2 (test code = 697) EGFR (BEAKER) (test 59 mL/min/1.73 ESTIMA KAR GFR IS code = 1092) sq m NOT ACCURATE CREATININE CLEARANCE IN PREDICTING GLOMERULAR FILTRATION RATE . ESTIMATED GFR I S NOT APPLICABLE FOR DIALYSIS PATIEN TS. Contact Acid Plant Operator Helper ID - PIAYA LCBC W/PLT COUNT & AUTO [id number] 05:50:00 Test Item Value Reference Range Interpretation Comments WHITE BLOOD CELL COUNT (BEAKER) 6.1 K/ L 3.5-10.5 (test code = 775) RED BLOOD CELL COUNT (BEAKER) 3.86 M/ L 4.63-6.08 L (test code = 761) HEMOGLOBIN (BEAKER) (test code = 10.9 GM/DL 13.7-17.5 L 410) HEMATOCRIT (BEAKER) (test code = 34.9 % 40.1-51.0 L 411) MEAN CORPUSCULAR VOLUME (BEAKER) 90.4 fL 79.0-92.2 (test code = 753) MEAN CORPUSCULAR HEMOGLOBIN 28.2 pg 25.7-32.2 (BEAKER) (test code = 751) MEAN CORPUSCULAR HEMOGLOBIN CONC 31.2 GM/DL 32.3-36.5 L (BEAKER) (test code = 752) RED CELL DISTRIBUTION WIDTH 15.2 % 11.6-14.4 H (BEAKER) (test code = 412) PLATELET COUNT (BEAKER) (test 336 K/CU MM 150-450 code = 756) MEAN PLATELET VOLUME (BEAKER) 9.9 fL 9.4-12.4 (test code = 754) NUCLEATED RED BLOOD CELLS 0 /100 WBC 0-0 (BEAKER) (test code = 413) NEUTROPHILS RELATIVE PERCENT 91 % (BEAKER) (test code = 429) LYMPHOCYTES RELATIVE PERCENT 5 % (BEAKER) (test code = 430) MONOCYTES RELATIVE PERCENT 3 % (BEAKER) (test code = 431) EOSINOPHILS RELATIVE PERCENT 0 % (BEAKER) (test code = 432) BASOPHILS RELATIVE PERCENT 0 % (BEAKER) (test code = 437) NEUTROPHILS ABSOLUTE COUNT 5.54 K/ L 1.78-5.38 H (BEAKER) (test code = 670) LYMPHOCYTES ABSOLUTE COUNT 0.30 K/ L 1.32-3.57 L (BEAKER) (test code = 414) MONOCYTES ABSOLUTE COUNT (BEAKER) 0.15 K/ L 0.30-0.82 L (test code = 415) EOSINOPHILS ABSOLUTE COUNT 0.00 K/ L 0.04-0.54 L (BEAKER) (test code = 416) BASOPHILS ABSOLUTE COUNT (BEAKER) 0.01 K/ L 0.01-0.08 (test code = 417) IMMATURE GRANULOCYTES-RELATIVE 1 % 0-1 PERCENT (BEAKER) (test code = 2801) LACTIC ACID, [id number] 05:26:00 Test Item Value Reference Range Interpretation Comments LACTATE BLOOD VENOUS (2) (BEAKER) 0.86 mmol/L 0.50-2.20 (test code = 2872) Contact Acid Plant Operator Helper ID - EDASITROPOTERIN [id number] 22:16:00 Test Item Value Reference Range Interpretation Comments TROPONIN I (BEAKER) (test code = 0.10 ng/mL 0.00-0.03 H 397) Troponin I (TnI) levels must be interpreted in the context of the presenting symptoms and the clinical findings. Elevated TnI levels indicate myocardial damage, but are not specific for ischemic heart disease. Elevated TnI levels are seen in patients with other cardiac conditions (including myocarditis and congestive heart failure), and slight TnI elevations occur in patients with other conditions, including sepsis, renal failure, acidosis, acute neurological disease, and persistent tachyarrhythmia.Contact Acid Plant Operator Helper ID - BSRAD, CHEST, 1 VIEW, NON [id number] 19:09:00Reason for exam:->Post-opShould this be performed at the bedside?->YesFINAL REPORT RAD, CHEST, 1 VIEW, NON DEPT TECHNIQUE: Frontal view of the chest.INDICATION: Post-op. COMPARISON: Chest radiograph 02/14/2020 FINDINGS/IMPRESSION: Lines/Tubes: None, right transjugular catheter has been removed Lungs/pleura: Streaky right basal opacity, atelectasis most likely. No convincing change in trace left pleural effusion. No pneumothorax. Mild to moderate interstitial pulmonary edema, or conspicuous than prior exam. Heart and Mediastinum: Cardiomegaly and aortic arch and descending thoracic aortic stent. Increasing cephalization of pulmonary vascular flow and diffuse vascular congestion. Soft Tissues and Bones: Unchanged. Signed: Lorenzo South Verified Date/Time: 02/18/2020 19:09:11 Reading Location: [address] Transitional Reading Room TROPONIN [id number] 16:20:00 Test Item Value Reference Range Interpretation Comments TROPONIN I (BEAKER) (test code = 0.11 ng/mL 0.00-0.03 H 397) Troponin I (TnI) levels must be interpreted in the context of the presenting symptoms and the clinical findings. Elevated TnI levels indicate myocardial damage, but are not specific for ischemic heart disease. Elevated TnI levels are seen in patients with other cardiac conditions (including myocarditis and congestive heart failure), and slight TnI elevations occur in patients with other conditions, including sepsis, renal failure, acidosis, acute neurological disease, and persistent tachyarrhythmia.Contact Acid Plant Operator Helper ID - BSBASIC METABOLIC PANEL 2020-02-18 16:13:00 Test Item Value Reference Range Interpretation Comments SODIUM (BEAKER) 137 meq/L 136-145 (test code = 381) POTASSIUM (BEAKER) 4.0 meq/L 3.5-5.1 (test code = 379) CHLORIDE (BEAKER) 103 meq/L 98-107 (test code = 382) CO2 (BEAKER) (test 24 meq/L 22-29 code = 355) BLOOD UREA NITROGEN 24 mg/dL 7-21 H (BEAKER) (test code = 354) CREATININE (BEAKER) 1.87 mg/dL 0.57-1.25 H (test code = 358) GLUCOSE RANDOM 85 mg/dL 70-105 (BEAKER) (test code = 652) CALCIUM (BEAKER) 9.2 mg/dL 8.4-10.2 (test code = 697) EGFR (BEAKER) (test 51 mL/min/1.73 ESTIMA KAR GFR IS code = 1092) sq m NOT ACCURATE CREATININE CLEARANCE IN PREDICTING GLOMERULAR FILTRATION RATE . ESTIMATED GFR I S NOT APPLICABLE FOR DIALYSIS PATIEN TS. Contact Acid Plant Operator Helper ID - [id number] 16:12:00 Test Item Value Reference Range Interpretation Comments PROTIME (BEAKER) (test code = 16.0 seconds 11.9-14.2 H 759) INR (BEAKER) (test code = 370) 1.32 <=5.90 PARTIAL THROMBOPLASTIN TIME 37.9 seconds 22.5-36.0 H (BEAKER) (test code = 760) Effective 11/21/2018: PT Reference Range ChangeNew: 11.9-14.2 Previous: 11.7- 14.7RECOMMENDED COUMADIN/WARFARIN INR THERAPY RANGESSTANDARD DOSE: 2.0-3.0 Includes: PROPHYLAXIS for venous thrombosis, systemic embolization; TREATMENT for venous thrombosis and/or pulmonary embolus.HIGH RISK: Target INR is 2.5-3.5 for patients wiht mechanical heart valves.LACTIC ACID, [id number] 16:10:00 Test Item Value Reference Range Interpretation Comments LACTATE BLOOD VENOUS (2) (BEAKER) 0.93 mmol/L 0.50-2.20 (test code = 2872) Contact Acid Plant Operator Helper ID - BSCBC W/PLT COUNT & AUTO [id number] 16:02:00 Test Item Value Reference Range Interpretation Comments WHITE BLOOD CELL COUNT (BEAKER) 7.0 K/ L 3.5-10.5 (test code = 775) RED BLOOD CELL COUNT (BEAKER) 4.19 M/ L 4.63-6.08 L (test code = 761) HEMOGLOBIN (BEAKER) (test code = 11.9 GM/DL 13.7-17.5 L 410) HEMATOCRIT (BEAKER) (test code = 38.1 % 40.1-51.0 L 411) MEAN CORPUSCULAR VOLUME (BEAKER) 90.9 fL 79.0-92.2 (test code = 753) MEAN CORPUSCULAR HEMOGLOBIN 28.4 pg 25.7-32.2 (BEAKER) (test code = 751) MEAN CORPUSCULAR HEMOGLOBIN CONC 31.2 GM/DL 32.3-36.5 L (BEAKER) (test code = 752) RED CELL DISTRIBUTION WIDTH 15.1 % 11.6-14.4 H (BEAKER) (test code = 412) PLATELET COUNT (BEAKER) (test 327 K/CU MM 150-450 code = 756) MEAN PLATELET VOLUME (BEAKER) 9.7 fL 9.4-12.4 (test code = 754) NUCLEATED RED BLOOD CELLS 0 /100 WBC 0-0 (BEAKER) (test code = 413) NEUTROPHILS RELATIVE PERCENT 75 % (BEAKER) (test code = 429) LYMPHOCYTES RELATIVE PERCENT 10 % (BEAKER) (test code = 430) MONOCYTES RELATIVE PERCENT 12 % (BEAKER) (test code = 431) EOSINOPHILS RELATIVE PERCENT 3 % (BEAKER) (test code = 432) BASOPHILS RELATIVE PERCENT 0 % (BEAKER) (test code = 437) NEUTROPHILS ABSOLUTE COUNT 5.22 K/ L 1.78-5.38 (BEAKER) (test code = 670) LYMPHOCYTES ABSOLUTE COUNT 0.70 K/ L 1.32-3.57 L (BEAKER) (test code = 414) MONOCYTES ABSOLUTE COUNT (BEAKER) 0.81 K/ L 0.30-0.82 (test code = 415) EOSINOPHILS ABSOLUTE COUNT 0.21 K/ L 0.04-0.54 (BEAKER) (test code = 416) BASOPHILS ABSOLUTE COUNT (BEAKER) 0.02 K/ L 0.01-0.08 (test code = 417) IMMATURE GRANULOCYTES-RELATIVE 1 % 0-1 PERCENT (BEAKER) (test code = 2801) [id number] 08:24:00 Test Item Value Reference Range Interpretation Comments PHOSPHORUS (BEAKER) (test code = 3.4 mg/dL 2.3-4.7 604) Contact Acid Plant Operator Helper ID Keyon DELGADO [id number] 08:24:00 Test Item Value Reference Range Interpretation Comments MAGNESIUM (BEAKER) (test code = 2.1 mg/dL 1.6-2.6 627) Contact Acid Plant Operator Helper ID - SANDY LBASIC METABOLIC [id number] 08:24:00 Test Item Value Reference Range Interpretation Comments SODIUM (BEAKER) 133 meq/L 136-145 L (test code = 381) POTASSIUM (BEAKER) 3.5 meq/L 3.5-5.1 (test code = 379) CHLORIDE (BEAKER) 101 meq/L 98-107 (test code = 382) CO2 (BEAKER) (test 23 meq/L 22-29 code = 355) BLOOD UREA NITROGEN 43 mg/dL 7-21 H (BEAKER) (test code = 354) CREATININE (BEAKER) 2.20 mg/dL 0.57-1.25 H (test code = 358) GLUCOSE RANDOM 111 mg/dL 70-105 H (BEAKER) (test code = 652) CALCIUM (BEAKER) 8.6 mg/dL 8.4-10.2 (test code = 697) EGFR (BEAKER) (test 42 mL/min/1.73 ESTIMA KAR GFR IS code = 1092) sq m NOT ACCURATE CREATININE CLEARANCE IN PREDICTING GLOMERULAR FILTRATION RATE . ESTIMATED GFR I S NOT APPLICABLE FOR DIALYSIS PATIEN TS. Contact Acid Plant Operator Helper ID - SANDY LRAD, CHEST, 1 VIEW, NON [id number] 07:26:00Reason for exam:->postopShould this be performed at the bedside?->YesFINAL REPORT CLINICAL HISTORY: postop TECHNIQUE: 1 view of the chest. COMPARISON: 02/13/2020 IMPRESSION: The right jugular line is unchanged. Pulmonary vascular congestive findings appear decreased. Small pleural effusions cannot be excluded. Cardiomegaly is again seen with an aortic stent graft. Signed: Shana Mosleyeport Verified Date/Time: 02/14/2020 07:26:24 Reading Location: [facility] Radiology Reading Room [id number] 06:57:00 Test Item Value Reference Range Interpretation Comments PARTIAL THROMBOPLASTIN TIME 40.5 seconds 22.5-36.0 H (BEAKER) (test code = 760) PROTHROMBIN [id number] 06:56:00 Test Item Value Reference Range Interpretation Comments PROTIME (BEAKER) (test code = 17.3 seconds 11.9-14.2 H 759) INR (BEAKER) (test code = 370) 1.46 <=5.90 Effective 11/21/2018: PT Reference Range ChangeNew: 11.9-14.2 Previous: 11.7- 14.7RECOMMENDED COUMADIN/WARFARIN INR THERAPY RANGESSTANDARD DOSE: 2.0-3.0 Includes: PROPHYLAXIS for venous thrombosis, systemic embolization; TREATMENT for venous thrombosis and/or pulmonary embolus.HIGH RISK: Target INR is 2.5-3.5 for patients wiht mechanical heart valves.CBC (HEMOGRAM ONLY)2020-02-14 06:49:00 Test Item Value Reference Range Interpretation Comments WHITE BLOOD CELL COUNT (BEAKER) 9.3 K/ L 3.5-10.5 (test code = 775) RED BLOOD CELL COUNT (BEAKER) 3.82 M/ L 4.63-6.08 L (test code = 761) HEMOGLOBIN (BEAKER) (test code = 10.9 GM/DL 13.7-17.5 L 410) HEMATOCRIT (BEAKER) (test code = 34.9 % 40.1-51.0 L 411) MEAN CORPUSCULAR VOLUME (BEAKER) 91.4 fL 79.0-92.2 (test code = 753) MEAN CORPUSCULAR HEMOGLOBIN 28.5 pg 25.7-32.2 (BEAKER) (test code = 751) MEAN CORPUSCULAR HEMOGLOBIN CONC 31.2 GM/DL 32.3-36.5 L (BEAKER) (test code = 752) RED CELL DISTRIBUTION WIDTH 15.7 % 11.6-14.4 H (BEAKER) (test code = 412) PLATELET COUNT (BEAKER) (test 212 K/CU MM 150-450 code = 756) MEAN PLATELET VOLUME (BEAKER) 10.6 fL 9.4-12.4 (test code = 754) NUCLEATED RED BLOOD CELLS 0 /100 WBC 0-0 (BEAKER) (test code = 413) RAD, CHEST, 1 VIEW, NON [id number] 05:38:00Reason for exam:->postopShould this be performed at the bedside?->YesFINAL REPORT RAD, CHEST, 1 VIEW, NON DEPT INDICATION: postop COMPARISON: Prior day's exam FINDINGS: Portable frontal view of the chest. IMPRESSION: Support Lines: Stable. Lungs andpleura: Unchanged airspace and pleural opacities. No pneumothorax.Heart and mediastinum: Stable contours. Stable surgical changes.Additional findings: None. Signed: Ricardo Sewell MDReport Verified Date/Time: 02/13/2020 05:38:32 0 5:38 [id number] 05:02:00 Test Item Value Reference Range Interpretation Comments PHOSPHORUS (BEAKER) (test code = 3.2 mg/dL 2.3-4.7 604) Contact Acid Plant Operator Helper ID - [id number] 05:02:00 Test Item Value Reference Range Interpretation Comments MAGNESIUM (BEAKER) (test code = 1.9 mg/dL 1.6-2.6 627) Contact Acid Plant Operator Helper ID - EDASIBASIC METABOLIC [id number] 05:02:00 Test Item Value Reference Range Interpretation Comments SODIUM (BEAKER) 132 meq/L 136-145 L (test code = 381) POTASSIUM (BEAKER) 3.7 meq/L 3.5-5.1 (test code = 379) CHLORIDE (BEAKER) 102 meq/L 98-107 (test code = 382) CO2 (BEAKER) (test 20 meq/L 22-29 L code = 355) BLOOD UREA NITROGEN 46 mg/dL 7-21 H (BEAKER) (test code = 354) CREATININE (BEAKER) 2.26 mg/dL 0.57-1.25 H (test code = 358) GLUCOSE RANDOM 97 mg/dL 70-105 (BEAKER) (test code = 652) CALCIUM (BEAKER) 8.4 mg/dL 8.4-10.2 (test code = 697) EGFR (BEAKER) (test 41 mL/min/1.73 ESTIMA KAR GFR IS code = 1092) sq m NOT ACCURATE CREATININE CLEARANCE IN PREDICTING GLOMERULAR FILTRATION RATE . ESTIMATED GFR I S NOT APPLICABLE FOR DIALYSIS PATIEN TS. Contact Acid Plant Operator Helper ID - [id number] 04:47:00 Test Item Value Reference Range Interpretation Comments PARTIAL THROMBOPLASTIN TIME 40.5 seconds 22.5-36.0 H (BEAKER) (test code = 760) PROTHROMBIN [id number] 04:46:00 Test Item Value Reference Range Interpretation Comments PROTIME (BEAKER) (test code = 17.6 seconds 11.9-14.2 H 759) INR (BEAKER) (test code = 370) 1.49 <=5.90 Effective 11/21/2018: PT Reference Range ChangeNew: 11.9-14.2 Previous: 11.7- 14.7RECOMMENDED COUMADIN/WARFARIN INR THERAPY RANGESSTANDARD DOSE: 2.0-3.0 Includes: PROPHYLAXIS for venous thrombosis, systemic embolization; TREATMENT for venous thrombosis and/or pulmonary embolus.HIGH RISK: Target INR is 2.5-3.5 for patients wiht mechanical heart valves.CBC (HEMOGRAM ONLY)2020-02-13 04:38:00 Test Item Value Reference Range Interpretation Comments WHITE BLOOD CELL COUNT (BEAKER) 11.7 K/ L 3.5-10.5 H (test code = 775) RED BLOOD CELL COUNT (BEAKER) 4.12 M/ L 4.63-6.08 L (test code = 761) HEMOGLOBIN (BEAKER) (test code = 11.8 GM/DL 13.7-17.5 L 410) HEMATOCRIT (BEAKER) (test code = 37.1 % 40.1-51.0 L 411) MEAN CORPUSCULAR VOLUME (BEAKER) 90.0 fL 79.0-92.2 (test code = 753) MEAN CORPUSCULAR HEMOGLOBIN 28.6 pg 25.7-32.2 (BEAKER) (test code = 751) MEAN CORPUSCULAR HEMOGLOBIN CONC 31.8 GM/DL 32.3-36.5 L (BEAKER) (test code = 752) RED CELL DISTRIBUTION WIDTH 15.6 % 11.6-14.4 H (BEAKER) (test code = 412) PLATELET COUNT (BEAKER) (test 205 K/CU MM 150-450 code = 756) MEAN PLATELET VOLUME (BEAKER) 10.3 fL 9.4-12.4 (test code = 754) NUCLEATED RED BLOOD CELLS 0 /100 WBC 0-0 (BEAKER) (test code = 413) RAD, CHEST, 1 VIEW, NON [id number] 07:41:00Reason for exam:->postopShould this be performed at the bedside?->YesFINAL REPORT CLINICAL HISTORY: postop TECHNIQUE: 1 view of the chest. COMPARISON: 02/11/2020 IMPRESSION: A right jugular line is again seen. Bilateral airspace opacities are again noted. Small pleural effusions cannot be excluded. Cardiomegaly is again seen with an aortic stent. Signed: Shana Mosley MDReport Verified Date/Time: 02/12/2020 07:41:34 Reading Location: [facility] Radiology Reading Room BASIC METABOLIC [id number] 04:43:00 Test Item Value Reference Range Interpretation Comments SODIUM (BEAKER) 130 meq/L 136-145 L (test code = 381) POTASSIUM (BEAKER) 3.6 meq/L 3.5-5.1 (test code = 379) CHLORIDE (BEAKER) 101 meq/L 98-107 (test code = 382) CO2 (BEAKER) (test 20 meq/L 22-29 L code = 355) BLOOD UREA NITROGEN 50 mg/dL 7-21 H (BEAKER) (test code = 354) CREATININE (BEAKER) 2.94 mg/dL 0.57-1.25 H (test code = 358) GLUCOSE RANDOM 108 mg/dL 70-105 H (BEAKER) (test code = 652) CALCIUM (BEAKER) 7.9 mg/dL 8.4-10.2 L (test code = 697) EGFR (BEAKER) (test 30 mL/min/1.73 ESTIMA KAR GFR IS code = 1092) sq m NOT ACCURATE CREATININE CLEARANCE IN PREDICTING GLOMERULAR FILTRATION RATE . ESTIMATED GFR I S NOT APPLICABLE FOR DIALYSIS PATIEN TS. Contact Acid Plant Operator Helper ID - JAMI [id number] 04:03:00 Test Item Value Reference Range Interpretation Comments PHOSPHORUS (BEAKER) (test code = 4.4 mg/dL 2.3-4.7 604) Contact Acid Plant Operator Helper ID - JAMI [id number] 04:03:00 Test Item Value Reference Range Interpretation Comments MAGNESIUM (BEAKER) (test code = 1.8 mg/dL 1.6-2.6 627) Contact Acid Plant Operator Helper ID - JAMI [id number] 03:50:00 Test Item Value Reference Range Interpretation Comments PARTIAL THROMBOPLASTIN TIME 36.8 seconds 22.5-36.0 H (BEAKER) (test code = 760) PROTHROMBIN [id number] 03:49:00 Test Item Value Reference Range Interpretation Comments PROTIME (BEAKER) (test code = 16.9 seconds 11.9-14.2 H 759) INR (BEAKER) (test code = 370) 1.41 <=5.90 Effective 11/21/2018: PT Reference Range ChangeNew: 11.9-14.2 Previous: 11.7- 14.7RECOMMENDED COUMADIN/WARFARIN INR THERAPY RANGESSTANDARD DOSE: 2.0-3.0 Includes: PROPHYLAXIS for venous thrombosis, systemic embolization; TREATMENT for venous thrombosis and/or pulmonary embolus.HIGH RISK: Target INR is 2.5-3.5 for patients wiht mechanical heart valves.CBC (HEMOGRAM ONLY)2020-02-12 03:43:00 Test Item Value Reference Range Interpretation Comments WHITE BLOOD CELL COUNT (BEAKER) 9.2 K/ L 3.5-10.5 (test code = 775) RED BLOOD CELL COUNT (BEAKER) 3.91 M/ L 4.63-6.08 L (test code = 761) HEMOGLOBIN (BEAKER) (test code = 11.2 GM/DL 13.7-17.5 L 410) HEMATOCRIT (BEAKER) (test code = 34.6 % 40.1-51.0 L 411) MEAN CORPUSCULAR VOLUME (BEAKER) 88.5 fL 79.0-92.2 (test code = 753) MEAN CORPUSCULAR HEMOGLOBIN 28.6 pg 25.7-32.2 (BEAKER) (test code = 751) MEAN CORPUSCULAR HEMOGLOBIN CONC 32.4 GM/DL 32.3-36.5 (BEAKER) (test code = 752) RED CELL DISTRIBUTION WIDTH 15.8 % 11.6-14.4 H (BEAKER) (test code = 412) PLATELET COUNT (BEAKER) (test 161 K/CU MM 150-450 code = 756) MEAN PLATELET VOLUME (BEAKER) 9.8 fL 9.4-12.4 (test code = 754) NUCLEATED RED BLOOD CELLS 0 /100 WBC 0-0 (BEAKER) (test code = 413) U/S, RENAL, [id number] 09:53:00Reason for exam:->aortic dissection FINAL REPORT TECHNIQUE: Grayscale ultrasound of the kidneys and bladder. INDICATION: Aortic dissection. COMPARISON: None. FINDINGS: RIGHT KIDNEY: The right kidney measures 10.1 cm.There is diffuse increased echogenicity of the kidneys. Cortical thickness measures 1.8 cm. No solidmass lesions. No hydronephrosis. Renal artery and vein are patent at the hilum. LEFT KIDNEY: The left kidney measures 12.3 cm. Cortical thickness measures 1.9 cm. There is diffuse increased echogenicity of the left kidney. No solid mass lesions. No hydronephrosis. Renal artery and vein are patent at the hilum. BLADDER: Zuñiga in decompressed urinary bladder.. IMPRESSION:Increased echogenicity of bilateral kidneys which can be seen with medical renal disease. No hydronephrosis.. Signed: Jeny Godinez Verified Date/Time: 02/11/2020 09:53:29 Reading Location: [address] Radiology Reading Room BASIC METABOLIC [id number] 05:22:00 Test Item Value Reference Range Interpretation Comments SODIUM (BEAKER) 131 meq/L 136-145 L (test code = 381) POTASSIUM (BEAKER) 4.5 meq/L 3.5-5.1 (test code = 379) CHLORIDE (BEAKER) 102 meq/L 98-107 (test code = 382) CO2 (BEAKER) (test 16 meq/L 22-29 L code = 355) BLOOD UREA NITROGEN 47 mg/dL 7-21 H (BEAKER) (test code = 354) CREATININE (BEAKER) 4.05 mg/dL 0.57-1.25 H (test code = 358) GLUCOSE RANDOM 91 mg/dL 70-105 (BEAKER) (test code = 652) CALCIUM (BEAKER) 8.0 mg/dL 8.4-10.2 L (test code = 697) EGFR (BEAKER) (test 21 mL/min/1.73 ESTIMA KAR GFR IS code = 1092) sq m NOT ACCURATE CREATININE CLEARANCE IN PREDICTING GLOMERULAR FILTRATION RATE . ESTIMATED GFR I S NOT APPLICABLE FOR DIALYSIS PATIEN TS. Contact Acid Plant Operator Helper ID - [id number] 05:21:00 Test Item Value Reference Range Interpretation Comments PARTIAL THROMBOPLASTIN TIME 36.6 seconds 22.5-36.0 H (BEAKER) (test code = 760) [id number] 05:20:00 Test Item Value Reference Range Interpretation Comments PHOSPHORUS (BEAKER) (test code = 6.5 mg/dL 2.3-4.7 H 604) Contact [employer] Operator Helper ID - [id number] 05:20:00 Test Item Value Reference Range Interpretation Comments MAGNESIUM (BEAKER) (test code = 1.7 mg/dL 1.6-2.6 627) Contact Acid Plant Operator Helper ID - [id number] 05:20:00 Test Item Value Reference Range Interpretation Comments PROTIME (BEAKER) (test code = 16.6 seconds 11.9-14.2 H 759) INR (BEAKER) (test code = 370) 1.38 <=5.90 Effective 11/21/2018: PT Reference Range ChangeNew: 11.9-14.2 Previous: 11.7- 14.7RECOMMENDED COUMADIN/WARFARIN INR THERAPY RANGESSTANDARD DOSE: 2.0-3.0 Includes: PROPHYLAXIS for venous thrombosis, systemic embolization; TREATMENT for venous thrombosis and/or pulmonary embolus.HIGH RISK: Target INR is 2.5-3.5 for patients wiht mechanical heart valves.CBC (HEMOGRAM ONLY)2020-02-11 04:54:00 Test Item Value Reference Range Interpretation Comments WHITE BLOOD CELL COUNT (BEAKER) 11.1 K/ L 3.5-10.5 H (test code = 775) RED BLOOD CELL COUNT (BEAKER) 4.03 M/ L 4.63-6.08 L (test code = 761) HEMOGLOBIN (BEAKER) (test code = 11.3 GM/DL 13.7-17.5 L 410) HEMATOCRIT (BEAKER) (test code = 36.4 % 40.1-51.0 L 411) MEAN CORPUSCULAR VOLUME (BEAKER) 90.3 fL 79.0-92.2 (test code = 753) MEAN CORPUSCULAR HEMOGLOBIN 28.0 pg 25.7-32.2 (BEAKER) (test code = 751) MEAN CORPUSCULAR HEMOGLOBIN CONC 31.0 GM/DL 32.3-36.5 L (BEAKER) (test code = 752) RED CELL DISTRIBUTION WIDTH 16.0 % 11.6-14.4 H (BEAKER) (test code = 412) PLATELET COUNT (BEAKER) (test 203 K/CU MM 150-450 code = 756) MEAN PLATELET VOLUME (BEAKER) 10.3 fL 9.4-12.4 (test code = 754) NUCLEATED RED BLOOD CELLS 0 /100 WBC 0-0 (BEAKER) (test code = 413) RAD, CHEST, 1 VIEW, NON [id number] 04:10:00Reason for exam:->postopShould this be performed at the bedside?->YesFINAL REPORT RAD, CHEST, 1 VIEW, NON DEPT INDICATION: postop COMPARISON: Prior day's exam FINDINGS: Portable frontal view of the chest. IMPRESSION: Support Lines: Stable right IJ catheter Lungs and pleura: Stable bilateral interstitial opacities. Small pleural effusions cannot excluded. No pneumothorax.Heart and mediastinum: Stable cardiomegaly. Aortic vascular stent present.Additional findings: None. Signed: Librado Gregorio MDReport Verified Date/Time: 02/11/2020 04:10:57 Electr onically signed by: LIBRADO GREGORIO MD on 02/11/2020 04:10 AMPHOSPHORUS 2020-02-10 04:02:00 Test Item Value Reference Range Interpretation Comments PHOSPHORUS (BEAKER) (test code = 5.3 mg/dL 2.3-4.7 H 604) Contact Acid Plant Operator Helper ID - [id number] 04:02:00 Test Item Value Reference Range Interpretation Comments MAGNESIUM (BEAKER) (test code = 1.6 mg/dL 1.6-2.6 627) Contact Acid Plant Operator Helper ID - DBBASIC METABOLIC [id number] 04:02:00 Test Item Value Reference Range Interpretation Comments SODIUM (BEAKER) 135 meq/L 136-145 L (test code = 381) POTASSIUM (BEAKER) 4.0 meq/L 3.5-5.1 (test code = 379) CHLORIDE (BEAKER) 105 meq/L 98-107 (test code = 382) CO2 (BEAKER) (test 20 meq/L 22-29 L code = 355) BLOOD UREA NITROGEN 32 mg/dL 7-21 H (BEAKER) (test code = 354) CREATININE (BEAKER) 2.82 mg/dL 0.57-1.25 H (test code = 358) GLUCOSE RANDOM 136 mg/dL 70-105 H (BEAKER) (test code = 652) CALCIUM (BEAKER) 8.3 mg/dL 8.4-10.2 L (test code = 697) EGFR (BEAKER) (test 32 mL/min/1.73 ESTIMA KAR GFR IS code = 1092) sq m NOT ACCURATE CREATININE CLEARANCE IN PREDICTING GLOMERULAR FILTRATION RATE . ESTIMATED GFR I S NOT APPLICABLE FOR DIALYSIS PATIEN TS. Contact Acid Plant Operator Helper ID - [id number] TIME/[id number] 03:53:00 Test Item Value Reference Range Interpretation Comments PROTIME (BEAKER) (test code = 17.2 seconds 11.9-14.2 H 759) INR (BEAKER) (test code = 370) 1.45 <=5.90 Effective 11/21/2018: PT Reference Range ChangeNew: 11.9-14.2 Previous: 11.7- 14.7RECOMMENDED COUMADIN/WARFARIN INR THERAPY RANGESSTANDARD DOSE: 2.0-3.0 Includes: PROPHYLAXIS for venous thrombosis, systemic embolization; TREATMENT for venous thrombosis and/or pulmonary embolus.HIGH RISK: Target INR is 2.5-3.5 for patients wiht mechanical heart valves.[id number] 03:49:00 Test Item Value Reference Range Interpretation Comments PARTIAL THROMBOPLASTIN TIME 31.1 seconds 22.5-36.0 (BEAKER) (test code = 760) CBC (HEMOGRAM ONLY)2020-02-10 03:39:00 Test Item Value Reference Range Interpretation Comments WHITE BLOOD CELL COUNT (BEAKER) 16.0 K/ L 3.5-10.5 H (test code = 775) RED BLOOD CELL COUNT (BEAKER) 4.49 M/ L 4.63-6.08 L (test code = 761) HEMOGLOBIN (BEAKER) (test code = 13.2 GM/DL 13.7-17.5 L 410) HEMATOCRIT (BEAKER) (test code = 40.9 % 40.1-51.0 411) MEAN CORPUSCULAR VOLUME (BEAKER) 91.1 fL 79.0-92.2 (test code = 753) MEAN CORPUSCULAR HEMOGLOBIN 29.4 pg 25.7-32.2 (BEAKER) (test code = 751) MEAN CORPUSCULAR HEMOGLOBIN CONC 32.3 GM/DL 32.3-36.5 (BEAKER) (test code = 752) RED CELL DISTRIBUTION WIDTH 15.9 % 11.6-14.4 H (BEAKER) (test code = 412) PLATELET COUNT (BEAKER) (test 252 K/CU MM 150-450 code = 756) MEAN PLATELET VOLUME (BEAKER) 10.0 fL 9.4-12.4 (test code = 754) NUCLEATED RED BLOOD CELLS 0 /100 WBC 0-0 (BEAKER) (test code = 413) BASIC METABOLIC [id number] 01:10:00 Test Item Value Reference Range Interpretation Comments SODIUM (BEAKER) 135 meq/L 136-145 L (test code = 381) POTASSIUM (BEAKER) 4.1 meq/L 3.5-5.1 Specimen slightly (test code = 379) hemolyzed CHLORIDE (BEAKER) 106 meq/L 98-107 (test code = 382) CO2 (BEAKER) (test 18 meq/L 22-29 L code = 355) BLOOD UREA NITROGEN 30 mg/dL 7-21 H (BEAKER) (test code = 354) CREATININE (BEAKER) 2.64 mg/dL 0.57-1.25 H Specimen slightly (test code = 358) hemolyzed GLUCOSE RANDOM 132 mg/dL 70-105 H (BEAKER) (test code = 652) CALCIUM (BEAKER) 8.1 mg/dL 8.4-10.2 L (test code = 697) EGFR (BEAKER) (test 34 mL/min/1.73 ESTIMA KAR GFR IS code = 1092) sq m NOT ACCURATE CREATININE CLEARANCE IN PREDICTING GLOMERULAR FILTRATION RATE . ESTIMATED GFR I S NOT APPLICABLE FOR DIALYSIS PATIEN TS. Contact Acid Plant Operator Helper ID - DBRAD, CHEST, 1 VIEW, NON [id number] 01:01:00Reason for exam:- >postopShould this be performed at the bedside?->YesFINAL REPORT RAD, CHEST, 1 VIEW, NON DEPT INDICATION: postop COMPARISON: 11 hour s prior. FINDINGS: Portable frontal view of the chest. IMPRESSION: Support Lines: No significant change. Lungs and pleura: Unchanged interstitial airspace opacities and pleural contours. No pneumothorax.Heart and mediastinum: Stable cardiomegaly. Interval post procedure changes.Additional findings: None. Signed: Librado Gregorio MDReport Verified Date/Time: 02/10/2020 01:01:13 RAD, CHEST, 1 VIEW, NON [id number] 15:16:00Reason for exam:->Post-opShould this be performed at the bedside?->YesFINAL REPORT RAD, CHEST, 1 VIEW, NON DEPT INDICATION: Post-op COMPARISON: None FINDINGS: Portable frontal view of the chest. IMPRESSION: Support Lines: Right IJ central venous catheter terminates over the superior vena cava. Lungs and pleura: Basilar subsegmental atelectasis without focal consolidation. No pneumothorax.Heart and mediastinum: Marked enlargement of the cardiac silhouette. Stent material noted throughout the thoracic aorta.Additional findings: None. Signed: JR Gonzales Robert MDReport Verified Date/Time: 02/09/2020 15:16:08 Reading Location: [address] Neuro Reading Room [id number] 15:14:00 Test Item Value Reference Range Interpretation Comments MAGNESIUM (BEAKER) 1.7 mg/dL 1.6-2.6 Specimen moderately (test code = 627) hemolyzed Contact Acid Plant Operator Helper ID - [id number] 15:14:00 Test Item Value Reference Range Interpretation Comments PHOSPHORUS (BEAKER) 4.9 mg/dL 2.3-4.7 H Specimen moderately (test code = 604) hemolyzed Contact Acid Plant Operator Helper ID - NTPBASIC METABOLIC [id number] 15:14:00 Test Item Value Reference Range Interpretation Comments SODIUM (BEAKER) 139 meq/L 136-145 (test code = 381) POTASSIUM (BEAKER) 4.5 meq/L 3.5-5.1 Specimen moderately (test code = 379) hemolyzed CHLORIDE (BEAKER) 107 meq/L 98-107 (test code = 382) CO2 (BEAKER) (test 20 meq/L 22-29 L code = 355) BLOOD UREA NITROGEN 27 mg/dL 7-21 H (BEAKER) (test code = 354) CREATININE (BEAKER) 2.58 mg/dL 0.57-1.25 H Specimen moderately (test code = 358) hemolyzed GLUCOSE RANDOM 125 mg/dL 70-105 H (BEAKER) (test code = 652) CALCIUM (BEAKER) 8.0 mg/dL 8.4-10.2 L (test code = 697) EGFR (BEAKER) (test 35 mL/min/1.73 ESTIMA KAR GFR IS code = 1092) sq m NOT ACCURATE CREATININE CLEARANCE IN PREDICTING GLOMERULAR FILTRATION RATE . ESTIMATED GFR I S NOT APPLICABLE FOR DIALYSIS PATIEN TS. Contact Acid Plant Operator Helper ID - [id number] 15:10:00 Test Item Value Reference Range Interpretation Comments PARTIAL THROMBOPLASTIN TIME 33.4 seconds 22.5-36.0 (BEAKER) (test code = 760) PROTHROMBIN [id number] 15:09:00 Test Item Value Reference Range Interpretation Comments PROTIME (BEAKER) (test code = 18.4 seconds 11.9-14.2 H 759) INR (BEAKER) (test code = 370) 1.58 <=5.90 Effective 11/21/2018: PT Reference Range ChangeNew: 11.9-14.2 Previous: 11.7- 14.7RECOMMENDED COUMADIN/WARFARIN INR THERAPY RANGESSTANDARD DOSE: 2.0-3.0 Includes: PROPHYLAXIS for venous thrombosis, systemic embolization; TREATMENT for venous thrombosis and/or pulmonary embolus.HIGH RISK: Target INR is 2.5-3.5 for patients wiht mechanical heart valves.CALCIUM, [id number] 15:02:00 Test Item Value Reference Range Interpretation Comments CALCIUM IONIZED (BEAKER) (test 0.94 mmol/L 1.12-1.27 L code = 698) PH, BLOOD (BEAKER) (test code = 7.34 1810) SODIUM NA-STAT [id number] 15:01:00 Test Item Value Reference Range Interpretation Comments SODIUM (BEAKER) (test code = 381) 130 meq/L 136-145 L POTASSIUM-STAT [id number] 15:01:00 Test Item Value Reference Range Interpretation Comments POTASSIUM (BEAKER) (test code = 5.3 meq/L 3.6-5.5 379) GLUCOSE-STAT [id number] 15:01:00 Test Item Value Reference Range Interpretation Comments GLUCOSE RANDOM (BEAKER) (test code 118 mg/dL 70-110 H = 652) HGB/HCT (H&H) - STAT [id number] 15:01:00 Test Item Value Reference Range Interpretation Comments HEMOGLOBIN (BEAKER) (test code = 13.6 GM/DL 13.0-16.8 410) HEMATOCRIT (BEAKER) (test code = 40.0 % 40.0-50.0 411) BLOOD GAS, [id number] 15:00:00 Test Item Value Reference Range Interpretation Comments PH ARTERIAL (BEAKER) (test code = 7.34 7.35-7.45 L 383) PCO2 ARTERIAL (BEAKER) (test code 39 mm Hg 35-45 = 384) PO2 ARTERIAL (BEAKER) (test code 71 mm Hg 80-90 L = 385) O2 SATURATION ARTERIAL (BEAKER) 94.6 % 96.0-97.0 L (test code = 386) HCO3 ARTERIAL (BEAKER) (test code 21 mmol/L 21-29 = 388) BASE EXCESS ARTERIAL (BEAKER) -5.1 mmol/L -2.0-3.0 L (test code = 387) PATIENT TEMPERATURE (BEAKER) 35.6 (test code = 1818) FIO2 (BEAKER) (test code = 1819) 28 CBC W/PLT COUNT & AUTO [id number] 14:58:00 Test Item Value Reference Range Interpretation Comments WHITE BLOOD CELL COUNT (BEAKER) 16.6 K/ L 3.5-10.5 H (test code = 775) RED BLOOD CELL COUNT (BEAKER) 4.59 M/ L 4.63-6.08 L (test code = 761) HEMOGLOBIN (BEAKER) (test code = 13.3 GM/DL 13.7-17.5 L 410) HEMATOCRIT (BEAKER) (test code = 41.7 % 40.1-51.0 411) MEAN CORPUSCULAR VOLUME (BEAKER) 90.8 fL 79.0-92.2 (test code = 753) MEAN CORPUSCULAR HEMOGLOBIN 29.0 pg 25.7-32.2 (BEAKER) (test code = 751) MEAN CORPUSCULAR HEMOGLOBIN CONC 31.9 GM/DL 32.3-36.5 L (BEAKER) (test code = 752) RED CELL DISTRIBUTION WIDTH 15.9 % 11.6-14.4 H (BEAKER) (test code = 412) PLATELET COUNT (BEAKER) (test 257 K/CU MM 150-450 code = 756) MEAN PLATELET VOLUME (BEAKER) 10.0 fL 9.4-12.4 (test code = 754) NUCLEATED RED BLOOD CELLS 0 /100 WBC 0-0 (BEAKER) (test code = 413) NEUTROPHILS RELATIVE PERCENT 89 % (BEAKER) (test code = 429) LYMPHOCYTES RELATIVE PERCENT 5 % (BEAKER) (test code = 430) MONOCYTES RELATIVE PERCENT 4 % (BEAKER) (test code = 431) EOSINOPHILS RELATIVE PERCENT 0 % (BEAKER) (test code = 432) BASOPHILS RELATIVE PERCENT 0 % (BEAKER) (test code = 437) NEUTROPHILS ABSOLUTE COUNT 14.72 K/ L 1.78-5.38 H (BEAKER) (test code = 670) LYMPHOCYTES ABSOLUTE COUNT 0.82 K/ L 1.32-3.57 L (BEAKER) (test code = 414) MONOCYTES ABSOLUTE COUNT (BEAKER) 0.71 K/ L 0.30-0.82 (test code = 415) EOSINOPHILS ABSOLUTE COUNT 0.03 K/ L 0.04-0.54 L (BEAKER) (test code = 416) BASOPHILS ABSOLUTE COUNT (BEAKER) 0.03 K/ L 0.01-0.08 (test code = 417) IMMATURE GRANULOCYTES-RELATIVE 2 % 0-1 H PERCENT (BEAKER) (test code = 2806) [id number] 13:34:00 Test Item Value Reference Range Interpretation Comments ACTIVATED CLOTTING TIME 257 sec : 74 -137 seconds, (BEAKER) (test code = Baseli ne: TESTED AT 441) [facility] [address] [place], [address]: Contact Acid Plant Operator Helper/Techni lana ID = [id number] for ROSSY GREENBERG BLOOD GAS, [id number] 11:49:00 Test Item Value Reference Range Interpretation Comments PH ARTERIAL (BEAKER) (test code = 7.30 7.35-7.45 L 383) PCO2 ARTERIAL (BEAKER) (test code 46 mmHg 35-45 H = 384) PO2 ARTERIAL (BEAKER) (test code 93 mmHg 80-90 H = 385) O2 SATURATION ARTERIAL (BEAKER) 97.2 % 96.0-97.0 H (test code = 386) HCO3 ARTERIAL (BEAKER) (test code 23 mmol/L 21-29 = 388) BASE EXCESS ARTERIAL (BEAKER) -4.2 mmol/L -2.0-3.0 L (test code = 387) PATIENT TEMPERATURE (BEAKER) 34.6 C (test code = 1818) FIO2 (BEAKER) (test code = 1819) 50.0 % GLUCOSE-STAT [id number] 11:49:00 Test Item Value Reference Range Interpretation Comments GLUCOSE RANDOM (BEAKER) (test code 121 mg/dL 70-110 H = 652) SODIUM NA-STAT [id number] 11:48:00 Test Item Value Reference Range Interpretation Comments SODIUM (BEAKER) (test code = 381) 135 meq/L 136-145 L POTASSIUM-STAT [id number] 11:48:00 Test Item Value Reference Range Interpretation Comments POTASSIUM (BEAKER) (test code = 4.1 meq/L 3.6-5.5 379) HGB/HCT (H&H) - STAT [id number] 11:48:00 Test Item Value Reference Range Interpretation Comments HEMOGLOBIN (BEAKER) (test code = 13.8 g/dL 13.0-16.8 410) HEMATOCRIT (BEAKER) (test code = 41.0 % 40.0-50.0 411) Coronavirus 2019 nCoV [id number] 07:34:00 Test Item Value Reference Range Interpretation Comments Coronavirus 2019 Negative NEGATIVE This test h as been nCoV Bedside (test authorize d by FDA under code = [id number]) an EUA for use byauthorized laboratories; T his test has been author ized only for the detecti on ofnucleic acid from SARS-CoV-2, not for any other viruses orpathogens; an d This test is only au thorized for the duratio n of thedeclaration that circumstances e xist justifying theauthorizatio n of emergency use o f in vitro diagnostic test sfor detection and/o r diagnosis of CO VID-19 under Nskrbgo81 4(b)(1) of the Act, 21 U.S .C. 360bbb-3(b)(1), unless theauthorizatio n is terminated or r evoked sooner. NT PRO-BRAIN NATRIURETIC [id number] 07:30:00 Test Item Value Reference Range Interpretation Comments NT PRO-BRAIN 3460 pg/mL 0-299 H ~~~~~~~~~~~~~~~ ~~~~~~~~ NATRIURETIC PEPTI ~~~~~~~~~~ ~~~~~~~~~~~~~ (test code = PROBNP) ~~~~~~~ ~~~~~~~NT PRO-BNP IS THE REPLACEMENT ASS AY FOR BNP.~~~~~~~~~~~ ~~~~~~~~ ~~~~~~~~~~~~~~~ ~~~~~~~~ ~~~~~~~~~~~~~~~ ~~~RULE- IN CUT POINTS F OR PATIENTS WITH S USPECTED ACUTECONGESTIVE HEART FAILURE:<50 yrs old: >450 pg/mL50-75 yrs old: >900 pg/mL >75 yrs old: >1800 pg/mL A positive bias m ay occur on patients srinivasa ing BIOTINsupplemen ts. BASIC METABOLIC [id number] 06:57:00 Test Item Value Reference Range Interpretation Comments SODIUM (test code = 136 mmol/L 137-145 L NA) POTASSIUM (test code 3.1 mmol/L 3.4-5.0 L = K) CHLORIDE (test code = 103 mmol/L 98-107 N CL) CARBON DIOXIDE (test 25 mmol/L 22-30 N code = CO2) GLUCOSE (test code = 105 mg/dL 74-106 N GLU) BLOOD UREA NITROGEN 26 mg/dL 9-20 H (test code = BUN) GLOMERULAR FILTRATION 50 >60 L The es timated RATE (test code = glomerular filtration GFR) rate is compute d usingpatient ra ce, age (>18), sex, and serum creatinine. If anyof the needed data elements are mi ssing the Laboratory cannot compute an kevin mation of the glomerul ar filtration rate . CREATININE (test code 2.0 mg/dL 0.7-1.3 H = CREAT) CALCIUM (test code = 8.0 mg/dL 8.4-10.2 L CA) PROTHROMBIN [id number] 06:56:00 Test Item Value Reference Range Interpretation Comments PROTHROMBIN TIME 16.3 SECONDS 9.2-12.1 H PATIENT (test code = PTP) INTERNATIONAL NORMAL 1.5 The INR is to be used RATIO (test code = only for monitoring INR) ORAL ANTICOAGULANTTH ERAPY. Indication INR Value1. Prophylaxis/jaxon atment of: Venous Thro mbosis, Pulmonary Embol ism 2.0 - 3.02. Prevent ion of systemic emboli sm from: Tissue he art valves 2.0 - 3. 0 Acute myocardial infa rction (to present sys temic embolism)* 2.0 - 3.0 Valvular heart disease 2.0 - 3.0 Atria l fibrillation 2. 0 - 3.03. Mechanica l prosthetic valv es (high risk) 2.5 - 3.5 * If oral anticoagulant t herapy is elected to preventrecurren t myocardial infa rction, an INR of 2.5-3 .5 isrecommended, consistent with Food and Drug Administrationr ecommen dations. THROMBOPLASTIN TIME [id number] 06:56:00 Test Item Value Reference Range Interpretation Comments THROMBOPLASTIN TIME 32.4 SECONDS 23.4-37.0 N Therape utic Range PARTIAL (test code = for Hep dennis PTT) EFFECTIVE Heparin IU/mL a PTT Seconds0.3 64.3 0.7 88.8 CBC W/AUTO [id number] 06:49:00 Test Item Value Reference Range Interpretation Comments WHITE BLOOD CELL (test code = 8.1 x10 3/uL 5.0-12.0 N WBC) RED BLOOD CELL (test code = 4.61 x10 6/uL 4.70-6.10 L RBC) HEMOGLOBIN (test code = HGB) 13.2 g/dL 14.0-18.0 L HEMATOCRIT (test code = HCT) 42.0 % 37.0-49.0 N MEAN CELL VOLUME (test code = 91 fL 80-94 N MCV) MEAN CELL HGB (test code = MCH) 28.6 pg 27-31 N MEAN CELL HGB CONCENTRATION 31.4 g/dL 33-37 L (test code = MCHC) RED CELL DISTRIBUTION WIDTH 15.5 % 11.5-15.5 N (test code = RDW) PLATELET COUNT (test code = 233 x10 3/uL 130-400 N PLT) MEAN PLATELET VOLUME (test code 10.0 fL 9.4-16.4 N = MPV) NEUTROPHIL % (test code = NT%) 88.5 % 43-65 H IMMATURE GRANULOCYTE % (test 0.4 % 0.0-2.0 N code = IG%) LYMPHOCYTE % (test code = LY%) 6.0 % 20.5-45.5 L MONOCYTE % (test code = MO%) 4.9 % 5.5-11.7 L EOSINOPHIL % (test code = EO%) 0.1 % 0.9-2.9 L BASOPHIL % (test code = BA%) 0.1 % 0.2-1.0 L NUCLEATED RBC % (test code = 0.0 % 0-1.0 N NRBC%) NEUTROPHIL # (test code = NT#) 7.16 x10 3/uL 2.2-4.8 H IMMATURE GRANULOCYTE # (test 0.03 x10 3/uL 0-0.03 N code = IG#) LYMPHOCYTE # (test code = LY#) 0.49 x10 3/uL 1.3-2.9 L MONOCYTE # (test code = MO#) 0.40 x10 3/uL 0.3-0.8 N EOSINOPHIL # (test code = EO#) 0.01 x10 3/uL 0.0-0.2 N BASOPHIL # (test code = BA#) 0.01 x10 3/uL 0.0-0.1 N TROPONIN I [id number] 06:42:00 Test Item Value Reference Range Interpretation Comments TROPONIN I RAPID 0.03 ng/mL 0.00-0.079 N ISTAT TROP ONIN I (test code = CRITERIA0.00-0. 08 ng/mL - TROPIRAP) Negative>0.08 n g/mL - Positive The us e of serial sampling and te sting protocol is are commended practice.An perez vated troponin level alone is often not suffi cient fordiagnosis of myocardial infarction. Tro ponin results obtaine d by different assay s may vary.Evaluation of the extent of myoca rdial damage based on increase of troponin would be valid only if similar methodology is used. - CT ANGIO [id number] 06:40:00 Constable: St: REG -- Name: JORGE GOINS [facility] : 1985 Age/S: 34/M [address] Unit: [id number] Loc:[place] [address] Phys: Lulu Rhodes MD Acct: [id number] Dis Date: Status: REG ER PHONE #: [phone] Exam Date: 02/09/2020 06 FAX #: [phone] Reason: rp bleed EXAMS: CPT CODE: [id number] CT ANGIO CHEST 90433 EXAM: CHEST, ABDOMEN AND PELVIS CT ANGIOGRAM WITH INTRAVENOUS CONTRAST CLINICAL INFORMATION: Retroperitoneal bleed. TECHNIQUE: CT angiogram of the chest, abdomen and pelvis wasperformed following the administration of intravenous contrast. Sagittal, coronal and 3-D reformatted images were obtained. One or more of the following dose reduction techniques were used: Automated exposure control, adjustment of the mA and/or kV according to patient size, and/or utilization of iterative reconstruction technique. Comparison: 02/09/2020 CT abdomen/pelvis. Location: H 19 FINDINGS: Lines and Tubes: None Mediastinum and Vasculature: There is an intimal flap at aortic arch immediately distal to the left subclavian artery takeoff, this extends distally to involve the bilateral renal, common iliac and right external iliac arteries. There is hypodense thrombus within the left proximal renal artery and right external iliac artery with significant lumen narrowing, of at least 75%. There i s no thoracic or abdominal aortic aneurysm. There are no intrathoracic lymph nodes meeting CT criteria for enlargement. There is heart is enlarged. The pulmonary artery is normal in size. There is a small pericardial effusion. Please note that evaluation for pulmonary artery embolism is limited on this exam due to the timing of contrast within the aorta. Note is made of a common origin of the brachiocephalic and left common carotid arteries, an anatomic variant. Airways/Pleura/Lungs: The central airways are patent and without filling defects. There is no pleural effusion or pneumothorax. There is d iffusely scattered hazy groundglass opacities. Patchy opacities are also seen at the lung bases. There is a right lower lobe calcified granuloma. Abdomen/Pelvis: The liver, pancreas, spleen and adrenalglands appear unremarkable. There appears to be hypoattenuation involving the superior pole left kidney. There is no renal calculus or PAGE 1 Signed Report (CONTINUED) Constable: St: REG Name: JORGE GOINS [facility] : 1985 Age/S: 34/M [address] Unit: [id number] Loc: [place] [address] Phys: Lulu Rhodes MD Acct: [id number] Dis Date: Status: REG ER PHONE #: [phone] Exam Date: 02/09/20612 FAX #: [phone] Reason: rp bleed EXAMS: CPT CODE: [id number] CT ANGIO CHEST 76349 (Continued) hydronephrosis. Mild left perinephric stranding is appreciated. There is no bowel obstruction. The appendix appears unremarkable. The urinary bladder is smooth-walled. The prostate is unremarkable. There is no ascites or pneumoperitoneum. Again seen is stranding of the left retroperitoneum, this is unchanged in size and appearance without hyperdense blush. Bones: There is no acute fracture. There is a mottled appearance of the bones.. IMPRESSION: Similar appearance of a left retroperitoneal hematoma without hyperdense blush to indicate active extravasation. 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 Significant hypodensity within the left renal and right external iliac arteries are concerning for thrombus. Subtle superior left renal pole hypoattenuation and mild asymmetric left perinephric stranding, this could reflect a renal infarct. Scattered pulmonary groundglass opacities with bibasilar infiltrates, nonspecific although may be seen with pulmonary edema and bibasilar atelectasis/pneumonitis. Small pericardial effusion. Cardiomegaly. Somewhat mottled appearance the bones, nonspecific, although may be seen with renal osteodystrophy, correlate clinically. FOR INTERNAL CODING PURPOSES ONLY RESULT CODE: [id number] These findings were discussed with Dr. Campoverde via telephone at 02/09/2020 6:40 AM. at 0640 Reported and signed by: Olinda Chilel MD PAGE 2 Signed Report (CONTINUED) Constable: St: REG --- [facility] 1985 Age[facility]S: 34[facility]M [address] Unit: [id number]: [place] [address] Phys: Lulu Rhodes MD Acct: [id number] Dis Date: Status: REG ER PHONE #: [phone] Exam Date: 02/09/2020612 FAX #: [phone] Reason: rp bleed EXAMS: CPT CODE:[id number] CT ANGIO CHEST 68831 (Continued) CC: Technologist: Alyssa Randhawa; GIOVANY ABERNATHY Trnscrd Dt/Tm: 02/09/2020 (0640) [email or web address] Orig Print D/T: S: 02/09/2020 (0643 PAGE 3 Signed Report- CTA ABD PEL W [id number] 06:40:00 Constable: St: REG -- Name: JORGE GOINS [facility] : 1985 Age/S: 34/M [address] Unit: [id number] Loc:[place] [address] Phys: Lulu Rhodes MD Acct: [id number] Dis Date: Status: REG ER PHONE #: [phone] Exam Date: 02/09/2020612 FAX #: [phone] Reason: rp bleed EXAMS: CPT CODE: [id number] CTA ABD PEL W CONT 98475 EXAM: CHEST, ABDOMEN AND PELVIS CT ANGIOGRAM WITH INTRAVENOUS CONTRASTCLINICAL INFORMATION: Retroperitoneal bleed. TECHNIQUE: CT angiogram of the chest, abdomen and pelvis was performed following the administration of intravenous contrast. Sagittal, coronal and 3-D reformatted images were obtained. One or more of the following dose reduction techniques were used: Automated exposure control, adjustment of the mA and/or kV according to patient size, and/or utilization ofiterative reconstruction technique. Comparison: 02/09/2020 CT abdomen/pelvis. Location: H 19 FINDINGS: Lines and Tubes: None Mediastinum and Vasculature: There is an intimal flap at aortic arch immediately distal to the left subclavian artery takeoff, this extends distally to involve the bilateral renal, common iliac and right external iliac arteries. There is hypodense thrombus within the left proximal renal artery and right external iliac artery with significant lumen narrowing, of at least 75%. There is no thoracic or abdominal aortic aneurysm. There are no intrathoracic lymph nodes meeting CT criteria for enlargement. There is heart is enlarged. The pulmonary artery is normal in size. There is a small pericardial effusion. Please note that evaluation for pulmonary artery embolism is limitedon this exam due to the timing of contrast within the aorta. Note is made of a common origin of the brachiocephalic and left common carotid arteries, an anatomic variant. Airways/Pleura/Lungs: The central airways are patent and without filling defects. There is no pleural effusion or pneumothorax. There is diffusely scattered hazy groundglass opacities. Patchy opacities are also seen at the lung bases. There is a right lower lobe calcified granuloma. Abdomen/Pelvis: The liver, pancreas, spleen and adrenal glands appear unremarkable. There appears to be hypoattenuation involving the superior pole left kidney. There is no renal calculus or PAGE 1 Signed Report (CONTINUED) Constable: St: REG-------- Name: JORGE GOINS [facility] [place] : 1985 Age/S: 34/M [address] Unit: [id number] Loc: [place] [address] Phys: Lulu Rhodes MD Acct: [id number] Dis Date: Status: REG ER PHONE #: [phone] Exam Date: 0 02/09/2020 06 FAX #: [phone] Reason: rp bleed EXAMS: CPT CODE: [id number] CTA ABD PEL W CONT 98346 (Continued) hydronephrosis. Mild left perinephric stranding is appreciated. There is no bowel obstruction. The appendix appears unremarkable. The urinary bladder is smooth-walled. The prostate is unr emarkable. There is no ascites or pneumoperitoneum. Again seen is stranding of the left retroperitoneum, this is unchanged in size and appearance without hyperdense blush. Bones: There is no acute fracture. There is a mottled appearance of the bones.. IMPRESSION: Similar appearance of a left retroperi toneal hematoma without hyperdense blush to indicate active extravasation. 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 Significant hypodensity within the left renal and right external iliac arteries are concerning for thrombus. Subtle superior left renal pole hypoattenuation and mild asymmetric left perinephric stranding, this could reflect a renal infarct. Scattered pulmonary groundglass opacities with bibasilar infiltrates, nonspecific although may be seen with pulmonary edema and bibasilar atelectasis/pneumonitis. Small pericardial effusion. Cardiomegaly. Somewhat mottled appearance the bones, nonspecific, although may be seen with renal osteodystrophy, correlate clinically. FOR INTERNAL CODING PURPOSES ONLY RESULT CODE: [id number] These findings were discussed with Dr. Campoverde via telephone at 02/09/2020 6:40 AM. at 0640 Reported and signed by: Olinda Chilel MD PAGE 2 Signed Report (CONTINUED) Constable: St: REG [facility] 1985 Age[facility]S: 34[facility]M [address] Unit:[id number] Loc: [place] [address] Phys: Lulu Rhodes MD Acct: [id number] Dis Date: Status: REG ER PHONE #: [phone] Exam Date: 02/09/2020612 FAX #: [phone] Reason: rp bleed EXAMS: CPT CODE: [id number] CTA ABD PEL W CONT 52412 (Continued) CC: Technologist: Alyssa Randhawa; GIOVANY ABERNATHY Trnscrd Dt/Tm: 02/09/2020 (0640) [email or web address] Orig Print D/T: S: 02/09/2020 (0643 PAGE 3 Signed ReportURINALYSIS [id number] 06:04:00 Test Item Value Reference Range Interpretation Comments UA COLOR (test code = COLU) Yellow Yellow UA APPEARANCE (test code = Clear Clear APPU) UA GLUCOSE DIPSTICK (test Negative Negative code = DGLUU) UA BILIRUBIN DIPSTICK (test Negative Negative code = BILU) UA KETONE DIPSTICK (test code Trace mg/dL Negative A = KETU) UA SPECIFIC GRAVITY (test 1.027 <1.030 code = SGU) UA BLOOD DIPSTICK (test code Negative Negative = JESSICA) UA PH DIPSTICK (test code = 5.0 5.0-8.0 TYSON) UA PROTEIN DIPSTICK (test NEGATIVE mg/dL Negative code = PROU) UA UROBILINOGEN DIPSTICK Negative mg/dL Negative (test code = URO) UA NITRITE DIPSTICK (test Negative Negative code = KHAI) UA LEUKOCYTE ESTERASE NEGATIVE Negative DIPSTICK (test code = LEUU) UA WBC (test code = WBCU) 0-3 /HPF <4-5 UA RBC (test code = RBCU) 0-3 /HPF <4-5 UA SQUAMOUS CELLS (test code 0-5 (RARE) /HPF 0-5 (RARE) = SQU) - CT ABD PELVIS W/O [id number] 05:43:00 Constable: St: REG -- Name: JORGE GOINS : 1985 Age/S: 34/M [address] Unit: [id number] Loc: [place] [address] Phys: Lulu Rhodes MD Acct: [id number] Dis Date: Status: REG ER PHONE #:[phone] Exam Date: 02/09/2020 5573 FAX #: [phone] Reason: left flank pain EXAMS: CPT CODE:[id number] CT ABD PELVIS W/O CONT 48270 CT abdomen and pelvis without IV contrast. Indication: Left flank pain Location: R16 Comparison: May 31, 2018 Technique: CT images of the abdomen and pelvis were obtained from the diaphragm to the pubic symphysis without the administration of intravenous contrast contrast. Coronal reformats are provided. One or more of the following dose reduction techniques were used: Automated exposure control, adjustment of the mA and/or kV according to patient size, and/or utilization of iterative reconstruction technique. Findings: Lungs bases: Unremarkable. The heart is enlarged with small pericardial effusion Liver: Noncontrast appearance is unremarkable. Gallbladder: Surgically absent Pancreas: Noncontrast appearance is unremarkable. Spleen: Noncontrast appearance is unremarkable. Adrenal glands: Noncontrast appearance is unremarkable. Kidneys: Noncontrast appearance is unremarkable. Bowel: No bowel obstruction. The appendix is unremarkable. Peritoneum: Hyperdense fluid seen tracking along the left retroperitoneum measuring at least 4.9 x 8.6 x 11 cm concerning for spontaneous retroperitoneal hemorrhage Pelvis: Mild bladder wall thickening may reflect Skeletal: No acute fracture.. Impression: Hyperdense fluid seen tracking along the left retroperitoneum measuring at least 4.9 x 8.6 x 11 cm concerning for spontaneous retroperitoneal hemorrhage Additional findings as detailed above PAGE 1 Signed Report (CONTINUED) Constable: St: REG Name: JORGE GOINS : 1985 Age/S: 34/M [address] Unit: [id number] Loc: [place] [address] Phys: Ethel Rhodes MD Acct: [id number] Dis Date: Status: REG ER PHONE #: [phone] Exam Date: 02/09/2020522 FAX #: [phone] Reason: left flank pain EXAMS: CPT CODE: [id number] CT ABD PELVIS W/O CONT 49068 (Continued) at 0543 Reported and signed by: Cuca Tran MD CC: Technologist: Alyssa Randhawa; GIOVANY ABERNATHY Trnscrd Dt/Tm: 02/09/2020 (0543) [email or web address] Orig Print D/T: S: 02/09/2020 (0546 PAGE 2 Signed ReportALDOSTERONE 2019-11-28 08:11:00 Test Item Value Reference Interpretation Comments Range ALDOSTERONE 2.6 ng/dL 0.0-30.0 This test was d eveloped and (test code = its performance ALDOS) characteristics determined by [facility]. It has not been cleared orappro aakash by the Food and Drug Administration. Performed At: [address] [id number] ra Tiffanie VILLALPANDO Ph:[phone] RENIN [id number] 08:11:00 Test Item Value Reference Range Interpretation Comments RENIN ACTIVITY 6.297 0.167-5.380 A This test was developed and (test code = ng/mL/hr its performance RENINA) characteristics determined by [facility]. It has not been cleared orappro aakash by the Food and Drug Administration. Performed At: [address] [id number] ra Tiffanie VILLALPANDO Ph:[phone] [id number] 13:10:00 Test Item Value Reference Range Interpretation Comments ALDOSTERONE (test code = ALDOS) ng/dL RENIN [id number] 13:10:00 Test Item Value Reference Range Interpretation Comments RENIN ACTIVITY 6.297 0.167-5.380 A This test was developed and (test code = ng/mL/hr its performance RENINA) characteristics determined by [facility]. It has not been cleared orappro aakash by the Food and Drug Administration. Performed At: [facility] [address] [place], [place] [id number] ra Tiffanie VILLALPANDO Ph:[phone] [id number] 04:17:00 Test Item Value Reference Range Interpretation Comments MAGNESIUM (test code = MAG) 2.3 mg/dL 1.8-2.4 N BASIC METABOLIC [id number] 04:08:00 Test Item Value Reference Range Interpretation Comments SODIUM (test code = 134 mmol/L 136-145 L NA) POTASSIUM (test code 3.7 mmol/L 3.5-5.1 N = K) CHLORIDE (test code = 100.0 mmol/L 98-107 N CL) CARBON DIOXIDE (test 26.0 mmol/L 21-32 N code = CO2) ANION GAP (test code 11.7 10-20 N = GAP) GLUCOSE (test code = 104 mg/dL 74-106 N GLU) BLOOD UREA NITROGEN 24 mg/dL 7-18 H (test code = BUN) GLOMERULAR FILTRATION > 60 mL/min >=60 Estima kar GFR by RATE (test code = using Kayley fied MDRD GFR) formula.Chronic kidney disease is defined as [facility] kidney damageor GFR <60 mL/min/1.73 m2 for >3 months. CREATININE (test code 1.50 mg/dL 0.7-1.3 H = CREAT) BUN/CREATININE RATIO 16.3 10-20 N (test code = BUN/CREA) CALCIUM (test code = 8.9 mg/dL 8.5-10.1 N CA) BASIC METABOLIC [id number] 04:06:00 Test Item Value Reference Range Interpretation Comments SODIUM (test code = NA) 134 mmol/L 136-145 L POTASSIUM (test code = K) 3.7 mmol/L 3.5-5.1 N CHLORIDE (test code = CL) 100.0 mmol/L 98-107 N CARBON DIOXIDE (test code = CO2) mmol/L 21-32 ANION GAP (test code = GAP) 10-20 GLUCOSE (test code = GLU) mg/dL 74-106 BLOOD UREA NITROGEN (test code = mg/dL 7-18 BUN) GLOMERULAR FILTRATION RATE (test mL/min >=60 code = GFR) CREATININE (test code = CREAT) mg/dL 0.7-1.3 BUN/CREATININE RATIO (test code 10-20 = BUN/CREA) CALCIUM (test code = CA) mg/dL 8.5-10.1 CBC W/O [id number] 03:26:00 Test Item Value Reference Range Interpretation Comments WHITE BLOOD CELL (test code = 8.4 K/mm3 4.5-12.5 N WBC) RED BLOOD CELL (test code = 5.74 mill/mm3 4.0-5.8 N RBC) HEMOGLOBIN (test code = HGB) 15.7 gram/dL 13.0-17.5 N HEMATOCRIT (test code = HCT) 49.7 % 42.0-52.0 N MEAN CELL VOLUME (test code = 86.6 fL 80-98 N MCV) MEAN CELL HGB (test code = MCH) 27.4 picogram 27.0-33.0 N MEAN CELL HGB CONCETRATION 31.6 gram/dL 33.0-36.0 L (test code = MCHC) RED CELL DISTRIBUTION WIDTH 18.5 % 11.6-16.2 H (test code = RDW) PLATELET COUNT (test code = 359 K/mm3 150-450 N PLT) MEAN PLATELET VOLUME (test code 10.0 fL 6.7-11.0 N = MPV) CBC W/O [id number] 03:20:00 Test Item Value Reference Range Interpretation Comments WHITE BLOOD CELL (test code = K/mm3 4.5-12.5 WBC) RED BLOOD CELL (test code = RBC) mill/mm3 4.0-5.8 HEMOGLOBIN (test code = HGB) 15.7 gram/dL 13.0-17.5 N HEMATOCRIT (test code = HCT) 49.7 % 42.0-52.0 N MEAN CELL VOLUME (test code = fL 80-98 MCV) MEAN CELL HGB (test code = MCH) picogram 27.0-33.0 MEAN CELL HGB CONCETRATION (test gram/dL 33.0-36.0 code = MCHC) RED CELL DISTRIBUTION WIDTH % 11.6-16.2 (test code = RDW) PLATELET COUNT (test code = PLT) K/mm3 150-450 MEAN PLATELET VOLUME (test code fL 6.7-11.0 = MPV) - MRA ABD WO/W [id number] 18:30:00 FAX: Sebastián Davis II, MD Constable: St: ADM Name: JORGE GOINS [facility] : 1985 Age/S: 34/M [address] [facility] Unit #: [id number] Loc: [address] [address] Phys: Sebastián Davis II, MD Acct: [id number] Dis Date: Status: ADM IN PHONE #: [phone] Exam Date: 11/22/2019 1758 FAX #: [phone] Reason: ruleout renal artery stenosis EXAMS: CPT CODE: [id number] MRA ABD WO/W CONT 75512 REASON FOR EXAM: rule out renal artery stenosis EXAM ORDER DATE: 11/22/2019 11:45 AM Ordering: Sebastián Davis II, MD Attending:Sebastián Davis II, MD Location:[facility] PROCEDURE: - MRA ABD WO/W CONT FINDINGS: 3-D [id number] images ofthe head were obtained with IV contrast using MR angiogram protocol. The abdominal aorta and iliac arteries are unremarkable. The celiac trunk and superior mesenteric arteries are unremarkable. The inferior mesenteric artery is within normal limits. Bilateral renal arteries are unremarkable. IMPRESSION: Unremarkable renal arteries at 1830 Reported and signed by: Allen Chino M.D. CC: Sebastián Davis II, MD Technologist: Rafaela Cueto)(MR) Trnscrd Date/Time/By: 11/22/2019 (1829) : By: [email or web address] Orig Print D/T: S: 11/22/2019 (1833) PAGE 1 Signed ReportBASIC METABOLIC PANEL 2019-11-22 03:54:00 Test Item Value Reference Range Interpretation Comments SODIUM (test code = 136 mmol/L 136-145 N NA) POTASSIUM (test code 4.0 mmol/L 3.5-5.1 N = K) CHLORIDE (test code = 101.0 mmol/L 98-107 N CL) CARBON DIOXIDE (test 25.0 mmol/L 21-32 N code = CO2) ANION GAP (test code 14.0 10-20 N = GAP) GLUCOSE (test code = 112 mg/dL 74-106 H GLU) BLOOD UREA NITROGEN 24 mg/dL 7-18 H (test code = BUN) GLOMERULAR FILTRATION > 60 mL/min >=60 Estima kar GFR by RATE (test code = using Kayley fied MDRD GFR) formula.Chronic kidney disease is defined as [facility] kidney damageor GFR <60 mL/min/1.73 m2 for >3 months. CREATININE (test code 1.40 mg/dL 0.7-1.3 H = CREAT) BUN/CREATININE RATIO 17.4 10-20 N (test code = BUN/CREA) CALCIUM (test code = 8.5 mg/dL 8.5-10.1 N CA) [id number] 03:49:00 Test Item Value Reference Range Interpretation Comments MAGNESIUM (test code = MAG) 2.4 mg/dL 1.8-2.4 N BASIC METABOLIC [id number] 03:40:00 Test Item Value Reference Range Interpretation Comments SODIUM (test code = NA) 136 mmol/L 136-145 N POTASSIUM (test code = K) 4.0 mmol/L 3.5-5.1 N CHLORIDE (test code = CL) 101.0 mmol/L 98-107 N CARBON DIOXIDE (test code = CO2) mmol/L 21-32 ANION GAP (test code = GAP) 10-20 GLUCOSE (test code = GLU) mg/dL 74-106 BLOOD UREA NITROGEN (test code = mg/dL 7-18 BUN) GLOMERULAR FILTRATION RATE (test mL/min >=60 code = GFR) CREATININE (test code = CREAT) mg/dL 0.7-1.3 BUN/CREATININE RATIO (test code 10-20 = BUN/CREA) CALCIUM (test code = CA) mg/dL 8.5-10.1 CBC W/O [id number] 03:32:00 Test Item Value Reference Range Interpretation Comments WHITE BLOOD CELL (test 10.5 K/mm3 4.5-12.5 N code = WBC) RED BLOOD CELL (test 5.64 mill/mm3 4.0-5.8 N code = RBC) HEMOGLOBIN (test code 15.3 gram/dL 13.0-17.5 N = HGB) HEMATOCRIT (test code 48.6 % 42.0-52.0 N = HCT) MEAN CELL VOLUME (test 86.2 fL 80-98 N code = MCV) MEAN CELL HGB (test 27.1 picogram 27.0-33.0 N code = MCH) MEAN CELL HGB 31.5 gram/dL 33.0-36.0 L CONCETRATION (test code = MCHC) RED CELL DISTRIBUTION 18.4 % 11.6-16.2 H WIDTH (test code = RDW) PLATELET COUNT (test 391 K/mm3 150-450 RESULT VERIFIED BY code = PLT) REPEAT ANALYSIS MEAN PLATELET VOLUME 10.3 fL 6.7-11.0 N (test code = MPV) LIPID PROFILE (CORONARY RISK)2019-11-21 07:37:00 Test Item Value Reference Range Interpretation Comments TRIGLYCERIDES (test 74 mg/dL 20-150 N code = TRIG) CHOLESTEROL (test code 111 mg/dL 0-200 N = CHOL) CHOLESTEROL/HDL RATIO 3.0 RATIO 0-4.9 N RISK A SSOCIATED WITH (test code = CHOLHDL) CHOL/H DL RATIOS: Risk Male Female1/2 AVERAGE 3.43 3.27AVERAG E 4.97 4.442X AVERAGE 9.55 7.053X AVERAGE 23.39 11.04 REFERENCE VALUE IS RELATED TO R ISK LEVELS ASRECOMM ENDED BY THE NAT. HUTTON RT, LUNG, AND BLOOD INST. HDL CHOLESTEROL (test 37 mg/dL 40-60 L code = HDL) LIPOPROTEIN LDL (test 61 mg/dL 100-129 L ====== code = LDL) ======= Referen ce Interval: mg /dL mmol/L--------- ------- ------- ------O ptimal <100 <2.6Near/above optimal 100-129 2.6-3.3Borderli ne High 130-159 3.4-4.1 High 160-189 4.1-4.9 Very High >=190 >=4.9========= This LDL result is a direct measurement.=== ====== BASIC METABOLIC [id number] 04:13:00 Test Item Value Reference Range Interpretation Comments SODIUM (test code = 135 mmol/L 136-145 L NA) POTASSIUM (test code 4.7 mmol/L 3.5-5.1 N = K) CHLORIDE (test code = 102.0 mmol/L 98-107 N CL) CARBON DIOXIDE (test 25.0 mmol/L 21-32 N code = CO2) ANION GAP (test code 12.7 10-20 N = GAP) GLUCOSE (test code = 114 mg/dL 74-106 H GLU) BLOOD UREA NITROGEN 25 mg/dL 7-18 H (test code = BUN) GLOMERULAR FILTRATION > 60 mL/min >=60 Estima kar GFR by RATE (test code = using Kayley fied MDRD GFR) formula.Chronic kidney disease is defined as [facility] kidney damageor GFR <60 mL/min/1.73 m2 for >3 months. CREATININE (test code 1.40 mg/dL 0.7-1.3 H = CREAT) BUN/CREATININE RATIO 17.7 10-20 N (test code = BUN/CREA) CALCIUM (test code = 8.8 mg/dL 8.5-10.1 N CA) [id number] 04:13:00 Test Item Value Reference Range Interpretation Comments MAGNESIUM (test code = MAG) 2.2 mg/dL 1.8-2.4 N BASIC METABOLIC [id number] 04:02:00 Test Item Value Reference Range Interpretation Comments SODIUM (test code = NA) 135 mmol/L 136-145 L POTASSIUM (test code = K) 4.7 mmol/L 3.5-5.1 N CHLORIDE (test code = CL) 102.0 mmol/L 98-107 N CARBON DIOXIDE (test code = CO2) mmol/L 21-32 ANION GAP (test code = GAP) 10-20 GLUCOSE (test code = GLU) mg/dL 74-106 BLOOD UREA NITROGEN (test code = mg/dL 7-18 BUN) GLOMERULAR FILTRATION RATE (test mL/min >=60 code = GFR) CREATININE (test code = CREAT) mg/dL 0.7-1.3 BUN/CREATININE RATIO (test code 10-20 = BUN/CREA) CALCIUM (test code = CA) mg/dL 8.5-10.1 [id number] 04:02:00 Test Item Value Reference Range Interpretation Comments MAGNESIUM (test code = MAG) mg/dL 1.8-2.4 CBC W/O [id number] 03:41:00 Test Item Value Reference Range Interpretation Comments WHITE BLOOD CELL (test code = 9.1 K/mm3 4.5-12.5 N WBC) RED BLOOD CELL (test code = 5.18 mill/mm3 4.0-5.8 N RBC) HEMOGLOBIN (test code = HGB) 14.1 gram/dL 13.0-17.5 N HEMATOCRIT (test code = HCT) 45.0 % 42.0-52.0 N MEAN CELL VOLUME (test code = 86.9 fL 80-98 N MCV) MEAN CELL HGB (test code = MCH) 27.2 picogram 27.0-33.0 N MEAN CELL HGB CONCETRATION 31.3 gram/dL 33.0-36.0 L (test code = MCHC) RED CELL DISTRIBUTION WIDTH 17.8 % 11.6-16.2 H (test code = RDW) PLATELET COUNT (test code = 307 K/mm3 150-450 N PLT) MEAN PLATELET VOLUME (test code 10.0 fL 6.7-11.0 N = MPV) CBC W/O [id number] 03:37:00 Test Item Value Reference Range Interpretation Comments WHITE BLOOD CELL (test code = K/mm3 4.5-12.5 WBC) RED BLOOD CELL (test code = RBC) mill/mm3 4.0-5.8 HEMOGLOBIN (test code = HGB) 14.1 gram/dL 13.0-17.5 N HEMATOCRIT (test code = HCT) 45.0 % 42.0-52.0 N MEAN CELL VOLUME (test code = fL 80-98 MCV) MEAN CELL HGB (test code = MCH) picogram 27.0-33.0 MEAN CELL HGB CONCETRATION (test gram/dL 33.0-36.0 code = MCHC) RED CELL DISTRIBUTION WIDTH % 11.6-16.2 (test code = RDW) PLATELET COUNT (test code = PLT) K/mm3 150-450 MEAN PLATELET VOLUME (test code fL 6.7-11.0 = MPV) [id number] 23:59:00 Test Item Value Reference Range Interpretation Comments TROPONIN-I (test 0.072 ng/mL 0-0.045 HH Results nic led to code = TROPI) [id number] by [facility] 11/20/19 2358Cr itical results verifie d and read back by Nu rse? Y COMMENTS TO PRODUCT SAFETY AND STANDARDS ENGINEER: COLLECT 3 HOURS AFTER PREVIOUS SAMPLELIPID PROFILE (CORONARY RISK)2019-11-20 15:03:00 Test Item Value Reference Range Interpretation Comments TRIGLYCERIDES (test 116 mg/dL 20-150 N code = TRIG) CHOLESTEROL (test code 150 mg/dL 0-200 N = CHOL) CHOLESTEROL/HDL RATIO 3.0 RATIO 0-4.9 N RISK A SSOCIATED WITH (test code = CHOLHDL) CHOL/H DL RATIOS: Risk Male Female1/2 AVERAGE 3.43 3.27AVERAGE 4.9 7 4.442X AVERAGE 9.55 7.053X AVERAGE 23.39 11.04 REFERENCE VALUE IS RELATED TO R ISK LEVELS ASRECOMM ENDED BY THE COLEEN. HEA RT, LUNG, AND BLOOD INST. HDL CHOLESTEROL (test 43 mg/dL 40-60 N code = HDL) LIPOPROTEIN LDL (test 85 mg/dL 100-129 L ====== code = LDL) ======= Referen ce Interval: mg /dL mmol/L--------- ------- ------- ------O ptimal <100 <2.6Near/above optimal 100-129 2.6-3.3Borderli ne High 130-159 3.4-4.1 High 160-189 4.1-4.9 Very High >=190 >=4.9========= This LDL result is a direct measurement.=== ====== B-TYPE NATRIURETIC [id number] 07:57:00 Test Item Value Reference Range Interpretation Comments B-TYPE NATRIURETIC PEPTIDE 364.76 pgram/mL 0-100 H (test code = BNP) - XR CHEST 1 [id number] 07:13:00 FAX: Yossi Mackenzie [phone] Constable: [facility]: ADM FAX: Anette Diaz MD [phone] Name: JORGE GOINS [facility] : 1985 Age/S: 34/M [address] [facility] Unit #: [id number] Loc: V.S[address] [place], [place] [address]Kcyd: Yossi Mackenzie Acct: [id number] Dis Date: Status: ADM IN PHONE #: [phone] Exam Date: 06 FAX #: [phone] Reason: updated pulm view. EXAMS: CPT CODE: [id number] XR CHEST 1 V 20467 HISTORY: CHF exacerbation and hypertensive emergency. COMPARISON: Previous day. Location: TH. Small right effusion with dependent changes. No infiltrates or congestion. Moderate cardiomegaly. Corre late for cardiomyopathy or pericardial effusion. IMPRESSION: No congestion or infiltrates. Small right effusion and dependent changes. Moderate cardiomegaly. Correlate for cardiomyopathy or pericardialeffusion. at 0713 Reported and signedby: Thony Doyle M.D. CC: Yossi Mackenzie; Anette Hughes MD Technologist: Damari Kaplan RT(R); Rola Hylton Trnscrd Date/Time/By: 11/20/2019 (0713) : By: [email or web address] Orig Print D/T: S: 11/20/2019 (0767) PAGE 1 Signed [id number] 06:36:00 Test Item Value Reference Range Interpretation Comments GLYCOSYLATED HEMOGLOBIN 6.1 % HbA1 GREERNoemi HARO DIAGNOSIS: (HA1C) (test code = HbA1C GLYHGB) (%) ----- ----- Diab etic >6.4Prediabetes 5.7 - 6.4Normal <5. 7 ESTIMATED AVERAGE 128 MG/DL GLUCOSE (test code = EAG) CBC W/O [id number] 06:15:00 Test Item Value Reference Range Interpretation Comments WHITE BLOOD CELL (test code = 11.4 K/mm3 4.5-12.5 N WBC) RED BLOOD CELL (test code = 5.19 mill/mm3 4.0-5.8 N RBC) HEMOGLOBIN (test code = HGB) 14.3 gram/dL 13.0-17.5 N HEMATOCRIT (test code = HCT) 44.3 % 42.0-52.0 N MEAN CELL VOLUME (test code = 85.4 fL 80-98 N MCV) MEAN CELL HGB (test code = MCH) 27.6 picogram 27.0-33.0 N MEAN CELL HGB CONCETRATION 32.3 gram/dL 33.0-36.0 L (test code = MCHC) RED CELL DISTRIBUTION WIDTH 17.2 % 11.6-16.2 H (test code = RDW) PLATELET COUNT (test code = 316 K/mm3 150-450 N PLT) MEAN PLATELET VOLUME (test code 10.5 fL 6.7-11.0 N = MPV) CBC W/O [id number] 06:10:00 Test Item Value Reference Range Interpretation Comments WHITE BLOOD CELL (test code = K/mm3 4.5-12.5 WBC) RED BLOOD CELL (test code = RBC) mill/mm3 4.0-5.8 HEMOGLOBIN (test code = HGB) 14.3 gram/dL 13.0-17.5 N HEMATOCRIT (test code = HCT) 44.3 % 42.0-52.0 N MEAN CELL VOLUME (test code = fL 80-98 MCV) MEAN CELL HGB (test code = MCH) picogram 27.0-33.0 MEAN CELL HGB CONCETRATION (test gram/dL 33.0-36.0 code = MCHC) RED CELL DISTRIBUTION WIDTH % 11.6-16.2 (test code = RDW) PLATELET COUNT (test code = PLT) K/mm3 150-450 MEAN PLATELET VOLUME (test code fL 6.7-11.0 = MPV) [id number] 04:35:00 Test Item Value Reference Range Interpretation Comments TROPONIN-I (test code = TROPI) 0.020 ng/mL 0-0.045 N COMMENTS TO PRODUCT SAFETY AND STANDARDS ENGINEER: COLLECT 3 HOURS AFTER PREVIOUS SAMPLEPHOSPHORUS 2019-11-20 04:35:00 Test Item Value Reference Range Interpretation Comments PHOSPHORUS (test code = PHOS) 3.1 mg/dL 2.5-4.9 N [id number] 04:35:00 Test Item Value Reference Range Interpretation Comments LIPASE (test code = LIP) 38 U/L 73.0-393.0 L [id number] 04:35:00 Test Item Value Reference Range Interpretation Comments MAGNESIUM (test code = MAG) 1.9 mg/dL 1.8-2.4 N THYROID PROFILE [id number] 04:35:00 Test Item Value Reference Range Interpretation Comments T3 UPTAKE (test code = 38.0 % 30.0-40.0 N T3UP) T4 (THYROXINE) (test 11.2 ug/dL 4.5-13.9 N code = T4) T7 (FREE THYROXINE 4.25 FTI 1.3-5.1 N INDEX) (test code = T7) THYROID STIMULATING 0.555 uIU/mL 0.36-3.74 N TSH REFE RENCE HORMONE (test code = RANGES: EUTHYROID: TSH) 0.35 - 4.3 mIU/ mL HYPO : > 5.5 mI U/mL HYPER : < 0.35 mIU/mL T4 [id number] 04:35:00 Test Item Value Reference Range Interpretation Comments T4 FREE (test code = T4F) 1.48 ng/dL 0.76-1.46 H - CT HEAD/BRAIN W/O [id number] 21:37:00 Name: JORGE GOINS [facility] FSED : 1985 Age/S: 34 / M [address] [facility] [address] Unit #: [id number] Loc: [address] Phys: Cristiano Tidwell MD [place], [place] [address] Acct: [id number] Dis Date: Status: ADM IN PHONE #: Exam Date: 11/19/20192126 FAX #: Reason: DELGADO, HTN EXAMS: CPT CODE: [id number] CT HEAD/BRAIN W/O CONT 29756 REASON FOR EXAM: DELGADO, HTN EXAM ORDER DATE: 11/19/2019 8:12 PM Ordering: Cristiano Tidwell MD Attending:Anette Hughes MD Location:[facility] PROCEDURE: - CT HEAD/BRAIN W/O CONT COMPARISON: FINDINGS: CT images of the brain were obtained without IV contrast. Dose modulation, iterative reconstruction, and/or weight based adjustment of the MA/KV was utilized to reduce the radiation dose to as low as reasonably achievable. The brain parenchyma is within normal limits. The giang-white matter delineation is unremarkable. The ventricles, cisterns, and sulci are unremarkable. There is no evidence of hemorrhage, mass, mass effect. There is no evidence of acute or old infarct. The calvarium is intact. IMPRESSION: Unremarkable brain. at 2137 Reported and signed by: Allen Chino M.D. CC: Anette Hughes MD; Cristiano Tidwell MD Technologist:Beverley David CTDI: DLP: Trnscb Date/Time: 11/19/2019 (2136) Whitney.MEMOL Orig Print D/T: S: 11/19/2019 (6270) PAGE 1 Signed ReportDRUGS OF ABUSE SCREEN [id number] 20:01:00 Test Item Value Reference Range Interpretation Comments UR MDMA (test code = MDMAQLU) NEGATIVE NEGATIVE URN COCAINE (test code = COCAURN) NEGATIVE NEGATIVE URN CANNABINOIDS (test code = NEGATIVE <50 ng/mL CANNABURN) URN AMPHETAMINE (test code = NEGATIVE NEGATIVE AMPHETURN) URN BARBITURATE (test code = NEGATIVE NEGATIVE BARBITURN) URN BENZODIAZEPINE (test code = NEGATIVE NEGATIVE BENZOURN) URN OPIATES (test code = OPIATURN) POSITIVE NEGATIVE A URN PHENCYCLIDINE (PCP) (test code = NEGATIVE NEGATIVE PHENCURN) URN METHADONE (test code = METHAURN) NEGATIVE <300 ng/mL B-TYPE NATRIURETIC [id number] 18:36:00 Test Item Value Reference Range Interpretation Comments B-TYPE NATRIURETIC PEPTIDE (test 978 pg/mL 0-100 H code = BNP) Coronavirus 2019 nCoV [id number] 18:33:00 Test Item Value Reference Range Interpretation Comments Coronavirus 2019 nCoV Bedside (test Negative code = [id number]) SPECIMEN COMMENTS: 1Is patient requiring admission or transfer? YIndication for rapid COVID-19 testing: High Clinical SuspicionPROTHROMBIN [id number] 18:32:00 Test Item Value Reference Range Interpretation Comments PROTHROMBIN TIME 13.3 seconds 9.0-13.0 H PATIENT (test code = PTP) INTERNATIONAL NORMAL 1.4 0.8-1.2 H The the rapeutic range RATIO (test code = for oral INR) anticoagulant t herapy formost indicat ions is an internati onal normalized rati o (INR)of between 2.0 and 3.0. The recommended therapeutic INR range for various cli nical situations is l isted below: Clinical Situat ion INR range Pulmonary embol ism treatment (2.0-3.0)Venous thrombosis treatmentVenous thrombosis prophylaxis (hi gh risk surgery)Prevent ion of systemic emboli sm from: Acute myocardial infa rction Valvular heart disease Atrial fibrillation Mechanical pros thetic heart valves (2.5-3.5) IS PATIENT ON ANTICOAGULANTS? NTHROMBOPLASTIN TIME [id number] 18:32:00 Test Item Value Reference Range Interpretation Comments THROMBOPLASTIN TIME 25.8 seconds 25.5-34.3 N Therapeu tic Range PARTIAL (test code = for pat ients on PTT) Heparin Therapy is 2 to2.5 times t heir baseline PTT le matt. IS PATIENT ON ANTICOAGULANTS? NLACTIC [id number] 18:31:00 Test Item Value Reference Range Interpretation Comments LACTIC ACID (test code = LACT) 1.0 MMOL/L 0.4-1.9 N BASIC METABOLIC [id number] 18:30:00 Test Item Value Reference Range Interpretation Comments SODIUM (test code = 136 mmol/L 128-145 N NA) POTASSIUM (test code 4.6 mmol/L 3.5-5.1 N = K) CHLORIDE (test code = 100.0 mmol/L 98-107 N CL) CARBON DIOXIDE (test 22.8 mmol/L 22-29 N code = CO2) ANION GAP (test code 18 mmol/L 10-20 N = GAP) GLUCOSE (test code = 97 mg/dL 70-110 N GLU) BLOOD UREA NITROGEN 32 mg/dL 7-22 H (test code = BUN) GLOMERULAR FILTRATION 49 mL/min >=60 Estima kar GFR by RATE (test code = using Kayley fied MDRD GFR) formula.Chronic kidney disease is defined as [facility] er kidney damageor GFR <60 mL/min/1.73 m2 for >3 months. CREATININE (test code 1.92 mg/dL 0.55-1.3 H = CREAT) BUN/CREATININE RATIO 16.7 10-20 N (test code = BUN/CREA) CALCIUM (test code = 8.6 mg/dL 8.0-10.5 N CA) HEPATIC FUNCTION [id number] 18:30:00 Test Item Value Reference Range Interpretation Comments TOTAL PROTEIN (test code = PROT) 7.7 gram/dL 6.1-7.8 N ALBUMIN (test code = ALB) 3.2 g/dL 3.3-4.4 L GLOBULIN (test code = GLOB) 4.5 G/DL 1-10 N ALBUMIN/GLOBULIN RATIO (test code 0.7 0.75-1.50 L = A/G) BILIRUBIN TOTAL (test code = 1.20 mg/dL 0.2-1.2 N BILT) BILIRUBIN DIRECT (test code = 0.70 mg/dL 0.0-0.30 H BILD) SGOT/AST (test code = AST) 35 U/L 10-39 N SGPT/ALT (test code = ALT) 27 U/L 10-69 N ALKALINE PHOSPHATASE TOTAL (test 143 U/L 50-139 H code = ALKP) [id number] 18:30:00 Test Item Value Reference Range Interpretation Comments TROPONIN-I (test 0.06 ng/mL 0.00-0.056 HH Results nic led to code = TROPI) by V.LAB.SZ 11/19/19 1830Cr itical results verifie d and read back by Nu rse? Y BASIC METABOLIC [id number] 18:22:00 Test Item Value Reference Range Interpretation Comments SODIUM (test code = 136 mmol/L 128-145 N NA) POTASSIUM (test code 4.6 mmol/L 3.5-5.1 N = K) CHLORIDE (test code = 100.0 mmol/L 98-107 N CL) CARBON DIOXIDE (test 22.8 mmol/L 22-29 N code = CO2) ANION GAP (test code 18 mmol/L 10-20 N = GAP) GLUCOSE (test code = 97 mg/dL 70-110 N GLU) BLOOD UREA NITROGEN 32 mg/dL 7-22 H (test code = BUN) GLOMERULAR FILTRATION 49 mL/min >=60 Estima kar GFR by RATE (test code = using Kayley fied MDRD GFR) formula.Chronic kidney disease is defined as eith er kidney damageor GFR <60 mL/min/1.73 m2 for >3 months. CREATININE (test code 1.92 mg/dL 0.55-1.3 H = CREAT) BUN/CREATININE RATIO 16.7 10-20 N (test code = BUN/CREA) CALCIUM (test code = 8.6 mg/dL 8.0-10.5 N CA) HEPATIC FUNCTION [id number] 18:22:00 Test Item Value Reference Range Interpretation Comments TOTAL PROTEIN (test code = PROT) gram/dL 6.4-8.2 ALBUMIN (test code = ALB) g/dL 3.4-5.0 GLOBULIN (test code = GLOB) G/DL 1-10 ALBUMIN/GLOBULIN RATIO (test code = 0.75-1.50 A/G) BILIRUBIN TOTAL (test code = BILT) mg/dL 0.0-1.0 BILIRUBIN DIRECT (test code = BILD) mg/dL 0.0-0.20 SGOT/AST (test code = AST) IUnit/L 15-37 SGPT/ALT (test code = ALT) IUnit/L 12-78 ALKALINE PHOSPHATASE TOTAL (test IUnit/L 45-117 code = ALKP) [id number] 18:22:00 Test Item Value Reference Range Interpretation Comments TROPONIN-I (test code = TROPI) ng/mL 0-0.045 CBC W/O [id number] 18:10:00 Test Item Value Reference Range Interpretation Comments WHITE BLOOD CELL (test code = 7.3 K/mm3 4.5-12.5 N WBC) RED BLOOD CELL (test code = 5.12 mill/mm3 4.0-5.8 N RBC) HEMOGLOBIN (test code = HGB) 13.7 gram/dL 13.0-17.5 N HEMATOCRIT (test code = HCT) 43.6 % 42.0-52.0 N MEAN CELL VOLUME (test code = 85.2 fL 80-98 N MCV) MEAN CELL HGB (test code = MCH) 26.8 picogram 27.0-33.0 L MEAN CELL HGB CONCETRATION 31.4 gram/dL 33.0-36.0 L (test code = MCHC) RED CELL DISTRIBUTION WIDTH 16.9 % 11.6-16.2 H (test code = RDW) RED CELL DISTRIBUTION WIDTH SD 53.1 fL 37.0-51.0 H (test code = RDW-SD) PLATELET COUNT (test code = 301 K/mm3 150-450 N PLT) MEAN PLATELET VOLUME (test code 10.2 fL 6.7-11.0 N = MPV) - XR CHEST 1 [id number] 18:07:00 FAX: Donn Cardoso Constable: ME St: REG Name: JORGE GOINS [facility] FSED : 1985 Age/S: 34/M [address] [facility] [address] Unit #: [id number] Loc: [facility] [address] Phys: Donn Cardoso MD [place], [place] [address] Acct: [id number] Dis Date: Status: REG ER PHONE #: Exam Date: 11/19/2019 5737 FAX #: Reason: Shortness of Breath EXAMS: CPT CODE: [id number] XR CHEST 1 V 66119 REASON FOR EXAM: Shortness of Breath EXAM ORDER DATE: 11/19/2019 5:23 PM Ordering: Donn Cardoso MD Attending:Donn Cardoso MD Location:[facility] PROCEDURE: - XR CHEST 1 V COMPARISON: 05/08/2019 FINDINGS: Portable AP frontal viewof the chest obtained at 5:19 PM shows patchy airspace opacity at the bases. The heart size is minim ally enlarged. Pulmonary vasculatures are minimally congested. IMPRESSION: Congestive heart failure with pulmonary edema and probable small bilateral pleural effusions at 1807 Reported and signed by: Allen Chino M.D. CC: Donn Cardoso MD Technologist: LORENZO FAUSTIN RT(R)(CT) Trnscrd Date/Time/By: 11/19/2019 (1806) : By: QamarL Orig Print D/T: S: 11/19/2019 (1810) PAGE 1 Signed [id number] 15:42:00 RUN DATE: 05/13/19 [facility] - Lab PAGE 1 RUN TIME: 1542 Specimen Inquiry RUN USER: INTERFACE PATIE NT: ETHANKENJORGE PHAN #: [id number] LOC: [facility] U #: [id number] AGE/SX: 33/M ROOM: [facility] RE05/08/19REG DR: Brianne Antoine : [birth year] BED: A DIS: 05/10/19 STATUS: DIS IN TLOC: SPEC #: [id number] RECD: 05/10/19 STATUS: [place] REQ #: [id number] DOV: 05/08/19- SUBM DR: Paresh Oglesby MD ENTERED: 05/10/19 SP TYPE: GALLBLADD MAURIICO DR: ORDERED: GROSS MARKERS: ABNORMAL TISSUE, GALLBLADDER PROCEDURES: GROSS (05/13/19114) TISSUES: GALLBLADDER, NOS CLINICAL HISTORY COLLECTION DATE: 05/09/19 CHOLECYSTITIS FINAL DIAGNOSIS Gallbladder, cholecystectomy: MILD CHRONIC INFLAMMATION, GALLBLADDER NEGATIVE FOR MALIGNANCY DMW/sm A 43478 MACROSCOPIC The specimen is received in formalin, labeled with the patient's name, and identified as "gallbladder". It consists of an intact gallbladder with a smooth dark greenserosal surface. The specimen measures 8 cm in length with diameter up to 4.0 cm. A 2.0 cm segment of duct is clamped. No lymph node is identified at the neck of the gallbladder. The lumen contains abundant green- black bile but stones are identified. No stones are identified within the specimen container. The mucosal surface is dark green and velvety. The gallbladder wall measures up to 0.2 cm in thickness. No nodules or masses are identified. Punch Operator tissue is submitted in a single cassette.GROSS PERFORMED AT [facility] [address] [place] [address] (p)[phone] CONTINUED ON NEXT PAGE RUN DATE: 05/13/19 [facility] PAGE 2 RUN TIME: 1542 Specimen Inquiry RUN USER: INTERFACE SPEC #: [id number] PATIENT: JORGE GOINS Brii #[id number] (Continued) MICROSCOPIC All of the stains, including any controls performed, stain appropriately. MICROSCOPIC PERFORMED AT [facility] [address] [facility] [place] [address] [phone])[phone] PERFORMING SITE Diagnosis performed at: [facility] [address] [facility], [place] [address] Signed SIGNATURE ON FILE Sylvia Fuentes MD 05/13/19 1542 END OF REPORT BASIC METABOLIC [id number] 06:47:00 Test Item Value Reference Range Interpretation Comments SODIUM (test code = 136 mmol/L 136-145 N NA) POTASSIUM (test code 4.8 mmol/L 3.5-5.1 N = K) CHLORIDE (test code = 103.0 mmol/L 98-107 N CL) CARBON DIOXIDE (test 24.0 mmol/L 21-32 N code = CO2) ANION GAP (test code 13.8 10-20 N = GAP) GLUCOSE (test code = 123 mg/dL 74-106 H GLU) BLOOD UREA NITROGEN 28 mg/dL 7-18 H RESULT V ERIFIED BY (test code = BUN) REPEAT ROLANDO LYSIS GLOMERULAR FILTRATION 57 mL/min >=60 Estima kar GFR by RATE (test code = using Kayley fied MDRD GFR) formula.Chronic kidney disease is defined as eith er kidney damageor GFR <60 mL/min/1.73 m2 for >3 months. CREATININE (test code 1.70 mg/dL 0.7-1.3 H = CREAT) BUN/CREATININE RATIO 16.5 10-20 N (test code = BUN/CREA) CALCIUM (test code = 8.5 mg/dL 8.5-10.1 N CA) BASIC METABOLIC [id number] 06:30:00 Test Item Value Reference Range Interpretation Comments SODIUM (test code = NA) 136 mmol/L 136-145 N POTASSIUM (test code = K) 4.8 mmol/L 3.5-5.1 N CHLORIDE (test code = CL) 103.0 mmol/L 98-107 N CARBON DIOXIDE (test code = CO2) mmol/L 21-32 ANION GAP (test code = GAP) 10-20 GLUCOSE (test code = GLU) mg/dL 74-106 BLOOD UREA NITROGEN (test code = mg/dL 7-18 BUN) GLOMERULAR FILTRATION RATE (test mL/min >=60 code = GFR) CREATININE (test code = CREAT) mg/dL 0.7-1.3 BUN/CREATININE RATIO (test code 10-20 = BUN/CREA) CALCIUM (test code = CA) mg/dL 8.5-10.1 CBC W/AUTO [id number] 06:08:00 Test Item Value Reference Range Interpretation Comments WHITE BLOOD CELL (test code = 10.5 K/mm3 4.5-12.5 N WBC) RED BLOOD CELL (test code = 4.75 mill/mm3 4.0-5.8 N RBC) HEMOGLOBIN (test code = HGB) 12.7 gram/dL 13.0-17.5 L HEMATOCRIT (test code = HCT) 41.6 % 42.0-52.0 L MEAN CELL VOLUME (test code = 87.6 fL 80-98 N MCV) MEAN CELL HGB (test code = MCH) 26.7 picogram 27.0-33.0 L MEAN CELL HGB CONCETRATION 30.5 gram/dL 33.0-36.0 L (test code = MCHC) RED CELL DISTRIBUTION WIDTH 15.8 % 11.6-16.2 N (test code = RDW) RED CELL DISTRIBUTION WIDTH SD 49.8 fL 37.0-51.0 N (test code = RDW-SD) PLATELET COUNT (test code = 430 K/mm3 150-450 N PLT) MEAN PLATELET VOLUME (test code 9.5 fL 6.7-11.0 N = MPV) NEUTROPHIL % (test code = NT%) 90.5 % 39.0-69.0 H IMMATURE GRANULOCYTE % (test 0.6 % 0.0-5.0 N code = IG%) LYMPHOCYTE % (test code = LY%) 4.7 % 25.0-55.0 L MONOCYTE % (test code = MO%) 4.1 % 0.0-10.0 N EOSINOPHIL % (test code = EO%) 0.0 % 0.0-5.0 N BASOPHIL % (test code = BA%) 0.1 % 0.0-1.0 N NUCLEATED RBC % (test code = 0.0 % 0-0 N NRBC%) NEUTROPHIL # (test code = NT#) 9.53 K/mm3 1.8-7.7 H IMMATURE GRANULOCYTE # (test 0.06 x10 3/uL 0-0.03 H code = IG#) LYMPHOCYTE # (test code = LY#) 0.49 K/mm3 1.0-5.0 L MONOCYTE # (test code = MO#) 0.43 K/mm3 0-0.8 N EOSINOPHIL # (test code = EO#) 0.00 K/mm3 0.0-0.5 N BASOPHIL # (test code = BA#) 0.01 K/mm3 0.0-0.2 N NUCLEATED RBC # (test code = 0.00 K/mm3 0.0-0.1 N NRBC#) MANUAL DIFF REQUIRED (test code NO = MDIFF) - HEPA IMAG INCL GB W [id number] 10:56:00 FAX: Brianne Maldonado [phone] Constable: B St: ADM FAX: Paresh Cannon MD [phone] ------ Name: JORGE GOINS [facility] : 1985 Age/S: 33/M [address] Unit #: [id number] Loc: [place] [address] Phys: Paresh Oglesby MD Acct: [id number] Dis Date: Status: ADM IN PHONE #: [phone] Exam Date: 05/09/2019 1044 FAX #: [phone] Reason: gallbladder distention EXAMS: CPT CODE: [id number] HEPA IMAG INCL GB W PHA 03605 HISTORY: Gallbladder distention. COMPARISON: Abdominal ultrasound from 2018. Location: [facility]. HIDA scan: 4.1 mCi of technetium 99m Choletec and 2 mcg of CCK. Sequential images obtained. Homogeneous uptake within the liver. Excretion into the biliary system as well as intothe gallbladder and small bowel. Ejection fraction calculated 1% at 7 1/2 minutes. The normal shouldbe greater than 35% IMPRESSION: Markedly depressed ejection fraction of 1% may suggest gallbladder dysmotility and/or biliary dyskinesia. at 1056 Reported and signed by: Thony Doyle M.D. CC: Brianne Antoine MD; Paresh Oglesby MD Technologist: Bettina Santos RT(N) Trnscrd Date/Time/By: 05/09/2019 (1056) : By: Whitney.TH4 PAGE 1 SignedReportCBC W/AUTO [id number] 06:39:00 Test Item Value Reference Range Interpretation Comments WHITE BLOOD CELL (test code = 9.4 K/mm3 4.5-12.5 N WBC) RED BLOOD CELL (test code = 4.90 mill/mm3 4.0-5.8 N RBC) HEMOGLOBIN (test code = HGB) 13.2 gram/dL 13.0-17.5 N HEMATOCRIT (test code = HCT) 42.6 % 42.0-52.0 N MEAN CELL VOLUME (test code = 86.9 fL 80-98 N MCV) MEAN CELL HGB (test code = MCH) 26.9 picogram 27.0-33.0 L MEAN CELL HGB CONCETRATION 31.0 gram/dL 33.0-36.0 L (test code = MCHC) RED CELL DISTRIBUTION WIDTH 15.4 % 11.6-16.2 N (test code = RDW) RED CELL DISTRIBUTION WIDTH SD 48.9 fL 37.0-51.0 N (test code = RDW-SD) PLATELET COUNT (test code = 402 K/mm3 150-450 PLT) MEAN PLATELET VOLUME (test code 10.4 fL 6.7-11.0 N = MPV) NEUTROPHIL % (test code = NT%) 75.5 % 39.0-69.0 H IMMATURE GRANULOCYTE % (test 0.5 % 0.0-5.0 N code = IG%) LYMPHOCYTE % (test code = LY%) 13.5 % 25.0-55.0 L MONOCYTE % (test code = MO%) 9.1 % 0.0-10.0 N EOSINOPHIL % (test code = EO%) 1.1 % 0.0-5.0 N BASOPHIL % (test code = BA%) 0.3 % 0.0-1.0 N NUCLEATED RBC % (test code = 0.0 % 0-0 N NRBC%) NEUTROPHIL # (test code = NT#) 7.08 K/mm3 1.8-7.7 N IMMATURE GRANULOCYTE # (test 0.05 x10 3/uL 0-0.03 H code = IG#) LYMPHOCYTE # (test code = LY#) 1.27 K/mm3 1.0-5.0 N MONOCYTE # (test code = MO#) 0.85 K/mm3 0-0.8 H EOSINOPHIL # (test code = EO#) 0.10 K/mm3 0.0-0.5 N BASOPHIL # (test code = BA#) 0.03 K/mm3 0.0-0.2 N NUCLEATED RBC # (test code = 0.00 K/mm3 0.0-0.1 N NRBC#) COMPREHENSIVE METABOLIC [id number] 06:38:00 Test Item Value Reference Range Interpretation Comments SODIUM (test code = 139 mmol/L 136-145 N NA) POTASSIUM (test code = 4.2 mmol/L 3.5-5.1 N K) CHLORIDE (test code = 105.0 mmol/L 98-107 N CL) CARBON DIOXIDE (test 26.0 mmol/L 21-32 N code = CO2) ANION GAP (test code = 12.2 10-20 N GAP) GLUCOSE (test code = 114 mg/dL 74-106 H GLU) BLOOD UREA NITROGEN 36 mg/dL 7-18 H (test code = BUN) GLOMERULAR FILTRATION 57 mL/min >=60 Estima kar GFR by RATE (test code = GFR) using Modified MDRD formula.Chronic kidney disease is defined as [facility] er kidney damageor GFR <60 mL/min/1.73 m2 for >3 months. CREATININE (test code 1.70 mg/dL 0.7-1.3 H = CREAT) BUN/CREATININE RATIO 21.6 10-20 H (test code = BUN/CREA) TOTAL PROTEIN (test 7.0 gram/dL 6.4-8.2 N code = PROT) ALBUMIN (test code = 2.8 g/dL 3.4-5.0 L ALB) GLOBULIN (test code = 4.2 gram/dL 2.7-4.2 N GLOB) ALBUMIN/GLOBULIN RATIO 0.7 0.75-1.50 L (test code = A/G) CALCIUM (test code = 8.3 mg/dL 8.5-10.1 L CA) BILIRUBIN TOTAL (test 1.20 mg/dL 0.0-1.0 H code = BILT) SGOT/AST (test code = 23 IUnit/L 15-37 N AST) SGPT/ALT (test code = 30 IUnit/L 12-78 N ALT) ALKALINE PHOSPHATASE 114 IUnit/L 45-117 N Note change in TOTAL (test code = reference range due ALKP) to change in reagent. [id number] 06:34:00 Test Item Value Reference Range Interpretation Comments GLYCOSYLATED HEMOGLOBIN (HA1C) 5.9 % HbA1 4.8-6.0 N (test code = GLYHGB) ESTIMATED AVERAGE GLUCOSE (test 123 MG/DL code = EAG) COMPREHENSIVE METABOLIC [id number] 06:34:00 Test Item Value Reference Range Interpretation Comments SODIUM (test code = NA) 139 mmol/L 136-145 N POTASSIUM (test code = K) 4.2 mmol/L 3.5-5.1 N CHLORIDE (test code = CL) 105.0 mmol/L 98-107 N CARBON DIOXIDE (test code = CO2) mmol/L 21-32 ANION GAP (test code = GAP) 10-20 GLUCOSE (test code = GLU) mg/dL 74-106 BLOOD UREA NITROGEN (test code = mg/dL 7-18 BUN) GLOMERULAR FILTRATION RATE (test mL/min >=60 code = GFR) CREATININE (test code = CREAT) mg/dL 0.7-1.3 BUN/CREATININE RATIO (test code 10-20 = BUN/CREA) TOTAL PROTEIN (test code = PROT) gram/dL 6.4-8.2 ALBUMIN (test code = ALB) g/dL 3.4-5.0 GLOBULIN (test code = GLOB) gram/dL 2.7-4.2 ALBUMIN/GLOBULIN RATIO (test 0.75-1.50 code = A/G) CALCIUM (test code = CA) mg/dL 8.5-10.1 BILIRUBIN TOTAL (test code = mg/dL 0.0-1.0 BILT) SGOT/AST (test code = AST) IUnit/L 15-37 SGPT/ALT (test code = ALT) IUnit/L 12-78 ALKALINE PHOSPHATASE TOTAL (test IUnit/L 45-117 code = ALKP) URINALYSIS [id number] 22:57:00 Test Item Value Reference Range Interpretation Comments UA COLOR (test code = COLU) COLORLESS YELLOW A UA APPEARANCE (test code = CLEAR CLEAR APPU) UA GLUCOSE DIPSTICK (test NEGATIVE mg/dL NEGATIVE code = DGLUU) UA BILIRUBIN DIPSTICK (test NEGATIVE mg/dL NEGATIVE code = BILU) UA KETONE DIPSTICK (test code NEGATIVE mg/dL NEGATIVE = KETU) UA SPECIFIC GRAVITY (test 1.008 1.001-1.035 code = SGU) UA BLOOD DIPSTICK (test code Negative mg/dL NEGATIVE = JESSICA) UA PH DIPSTICK (test code = 6.0 5.0-8.0 TYSON) UA PROTEIN DIPSTICK (test NEGATIVE mg/dL NEGATIVE code = PROU) UA UROBILINIOGEN DIPSTICK Normal mg/dL NEGATIVE (test code = URO) UA NITRITE DIPSTICK (test NEGATIVE NEGATIVE code = KHAI) UA LEUKOCYTE ESTERASE W NEGATIVE Chip/uL NEGATIVE REFLEX (test code = LEUUR) UA WBC (test code = WBCU) 0-5 per HPF 0-5 UA RBC (test code = RBCU) 0-2 #/HPF 0-5 UA EPITHELIAL CELLS (test FEW per HPF FEW code = EPIU) UA BACTERIA (test code = per HPF NONE BACU) Urine Source? Clean CatchURINALYSIS [id number] 22:57:00 Test Item Value Reference Range Interpretation Comments UA COLOR (test code = COLU) COLORLESS YELLOW A UA APPEARANCE (test code = CLEAR CLEAR APPU) UA GLUCOSE DIPSTICK (test NEGATIVE mg/dL NEGATIVE code = DGLUU) UA BILIRUBIN DIPSTICK (test NEGATIVE mg/dL NEGATIVE code = BILU) UA KETONE DIPSTICK (test NEGATIVE mg/dL NEGATIVE code = KETU) UA SPECIFIC GRAVITY (test 1.008 1.001-1.035 code = SGU) UA BLOOD DIPSTICK (test Negative mg/dL NEGATIVE code = JESSICA) UA PH DIPSTICK (test code = 6.0 5.0-8.0 TYSON) UA PROTEIN DIPSTICK (test NEGATIVE mg/dL NEGATIVE code = PROU) UA UROBILINIOGEN DIPSTICK Normal mg/dL NEGATIVE (test code = URO) UA NITRITE DIPSTICK (test NEGATIVE NEGATIVE code = KHAI) UA LEUKOCYTE ESTERASE W NEGATIVE Chip/uL NEGATIVE REFLEX (test code = LEUUR) UA WBC (test code = WBCU) 0-5 per HPF 0-5 UA RBC (test code = RBCU) 0-2 #/HPF 0-5 UA EPITHELIAL CELLS (test FEW per HPF FEW code = EPIU) UA BACTERIA (test code = NONE SEEN per HPF NONE BACU) Urine Source? Clean CatchURINALYSIS [id number] 22:56:00 Test Item Value Reference Range Interpretation Comments UA COLOR (test code = COLU) COLORLESS YELLOW A UA APPEARANCE (test code = CLEAR CLEAR APPU) UA GLUCOSE DIPSTICK (test NEGATIVE mg/dL NEGATIVE code = DGLUU) UA BILIRUBIN DIPSTICK (test NEGATIVE mg/dL NEGATIVE code = BILU) UA KETONE DIPSTICK (test code NEGATIVE mg/dL NEGATIVE = KETU) UA SPECIFIC GRAVITY (test 1.008 1.001-1.035 code = SGU) UA BLOOD DIPSTICK (test code Negative mg/dL NEGATIVE = JESSICA) UA PH DIPSTICK (test code = 6.0 5.0-8.0 TYSON) UA PROTEIN DIPSTICK (test NEGATIVE mg/dL NEGATIVE code = PROU) UA UROBILINIOGEN DIPSTICK Normal mg/dL NEGATIVE (test code = URO) UA NITRITE DIPSTICK (test NEGATIVE NEGATIVE code = KHAI) UA LEUKOCYTE ESTERASE W NEGATIVE Chip/uL NEGATIVE REFLEX (test code = LEUUR) UA WBC (test code = WBCU) per HPF 0-5 UA RBC (test code = RBCU) per HPF 0-5 UA EPITHELIAL CELLS (test per HPF Few code = EPIU) UA BACTERIA (test code = per HPF NONE BACU) Urine Source? Clean Catch- XR CHEST 1 [id number] 12:38:00 FAX: Bowen Hairston DO Constable: St: REG Name: JORGE GOINS [facility] : 1985 Age/S: 33[facility] [address] [id number] Loc: [place] [address] Phys: Bowen Hairston DO Acct: [id number] Dis Date: Status: REG ER PHONE #: [phone] Exam Date: 05/08/2019 1217 FAX #: [phone] Reason: sob EXAMS: CPT CODE: [id number] XR CHEST 1 V 59012 HISTORY: Shortness of breath. COMPARISON: August 25, 2018. Location: [facility]. No acute infiltrates, effusion or congestion is noted. Dependent changes with moderate cardiomegaly. IMPRESSION: No acute infiltrates, effusion or congestion. at 7531 Reported and signed by: Thony Doyle M.D. CC: Bowen Hairston DO Technologist: Mae Jacques(Brii) Trnscrd Date/Time/By: 05/08/2019 (2490) : By: [email or web address] Orig Print D/T: S: 05/08/2019 (0932) PAGE 1 Signed ReportBASIC METABOLIC [id number] 12:30:00 Test Item Value Reference Range Interpretation Comments SODIUM (test code = 137 mmol/L 136-145 N NA) POTASSIUM (test code 4.4 mmol/L 3.5-5.1 N = K) CHLORIDE (test code = 104.0 mmol/L 98-107 N CL) CARBON DIOXIDE (test 26.0 mmol/L 21-32 N code = CO2) ANION GAP (test code 11.4 10-20 N = GAP) GLUCOSE (test code = 112 mg/dL 74-106 H GLU) BLOOD UREA NITROGEN 37 mg/dL 7-18 H (test code = BUN) GLOMERULAR FILTRATION 50 mL/min >=60 Estima kar GFR by RATE (test code = using Kayley fied MDRD GFR) formula.Chronic kidney disease is defined as eith er kidney damageor GFR <60 mL/min/1.73 m2 for >3 months. CREATININE (test code 1.90 mg/dL 0.7-1.3 H = CREAT) BUN/CREATININE RATIO 19.3 10-20 N (test code = BUN/CREA) CALCIUM (test code = 8.7 mg/dL 8.5-10.1 N CA) HEPATIC FUNCTION [id number] 12:30:00 Test Item Value Reference Range Interpretation Comments TOTAL PROTEIN (test 7.4 gram/dL 6.4-8.2 N code = PROT) ALBUMIN (test code = 3.2 g/dL 3.4-5.0 L ALB) GLOBULIN (test code = 4.2 gram/dL 2.7-4.2 N GLOB) ALBUMIN/GLOBULIN RATIO 0.8 0.75-1.50 N (test code = A/G) BILIRUBIN TOTAL (test 1.50 mg/dL 0.0-1.0 H code = BILT) BILIRUBIN DIRECT (test 0.71 mg/dL 0.0-0.20 H code = BILD) SGOT/AST (test code = 35 IUnit/L 15-37 N AST) SGPT/ALT (test code = 32 IUnit/L 12-78 N ALT) ALKALINE PHOSPHATASE 115 IUnit/L 45-117 N Note change in TOTAL (test code = reference range due ALKP) to change in reagent. [id number] 12:30:00 Test Item Value Reference Range Interpretation Comments LIPASE (test code = LIP) 40 U/L 73.0-393.0 L BASIC METABOLIC [id number] 12:19:00 Test Item Value Reference Range Interpretation Comments SODIUM (test code = NA) 137 mmol/L 136-145 N POTASSIUM (test code = K) 4.4 mmol/L 3.5-5.1 N CHLORIDE (test code = CL) 104.0 mmol/L 98-107 N CARBON DIOXIDE (test code = CO2) mmol/L 21-32 ANION GAP (test code = GAP) 10-20 GLUCOSE (test code = GLU) mg/dL 74-106 BLOOD UREA NITROGEN (test code = mg/dL 7-18 BUN) GLOMERULAR FILTRATION RATE (test mL/min >=60 code = GFR) CREATININE (test code = CREAT) mg/dL 0.7-1.3 BUN/CREATININE RATIO (test code 10-20 = BUN/CREA) CALCIUM (test code = CA) mg/dL 8.5-10.1 HEPATIC FUNCTION [id number] 12:19:00 Test Item Value Reference Range Interpretation Comments TOTAL PROTEIN (test code = PROT) gram/dL 6.4-8.2 ALBUMIN (test code = ALB) g/dL 3.4-5.0 GLOBULIN (test code = GLOB) gram/dL 2.7-4.2 ALBUMIN/GLOBULIN RATIO (test code = 0.75-1.50 A/G) BILIRUBIN TOTAL (test code = BILT) mg/dL 0.0-1.0 BILIRUBIN DIRECT (test code = BILD) mg/dL 0.0-0.20 SGOT/AST (test code = AST) IUnit/L 15-37 SGPT/ALT (test code = ALT) IUnit/L 12-78 ALKALINE PHOSPHATASE TOTAL (test IUnit/L 45-117 code = ALKP) [id number] 12:19:00 Test Item Value Reference Range Interpretation Comments LIPASE (test code = LIP) U/L 73.0-393.0 CBC W/O [id number] 12:07:00 Test Item Value Reference Range Interpretation Comments WHITE BLOOD CELL (test code = 6.8 K/mm3 4.5-12.5 N WBC) RED BLOOD CELL (test code = 4.65 mill/mm3 4.0-5.8 N RBC) HEMOGLOBIN (test code = HGB) 12.6 gram/dL 13.0-17.5 L HEMATOCRIT (test code = HCT) 40.8 % 42.0-52.0 L MEAN CELL VOLUME (test code = 87.7 fL 80-98 N MCV) MEAN CELL HGB (test code = MCH) 27.1 picogram 27.0-33.0 N MEAN CELL HGB CONCETRATION 30.9 gram/dL 33.0-36.0 L (test code = MCHC) RED CELL DISTRIBUTION WIDTH 15.3 % 11.6-16.2 N (test code = RDW) PLATELET COUNT (test code = 343 K/mm3 150-450 N PLT) MEAN PLATELET VOLUME (test code 10.2 fL 6.7-11.0 N = MPV) - US ABDOMEN [id number] 11:53:00 Name: JORGE GOINS [facility] : 1985 Age/S: 33 / M [address] [facility] Unit #: [id number] Loc: [place] [address] Phys: YovannyBowen Gonsalez Acct: [id number] Dis Date: Status: REG ER PHONE #: [phone] Exam Date: 05/08/2019 1130 FAX #: [phone] Reason: Abdominal Pain EXAMS: CPT CODE: [id number] US ABDOMEN LTD 99130 HISTORY: Abdominal pain. COMPARISON: CT scan from May 31, 2018.Location: [facility] The liver is normal in echogenicity and texture without parenchymal mass or lesions. The liver measured 19.9 cm in length and is moderately enlarged. No parenchymal mass is visible. No intra or extrahepatic biliary ductal dilatation. CBD is normal at 2.3 mm. Main portal vein is patent with hepatopedal flow and normal spectral waveform. Gallbladder is without gallstones however the wall is severely thickened especially the nondependent wall measuring up to 1.5 cm with edema. Correlate fo r acalculus cholecystitis. No ascites. Right kidney is free from hydronephrosis and calyceal stones and is hyperechogenic with loss of corticomedullary differentiation suggesting chronic medical renal disease. Right kidney measured 10.6 cm in length. Visualized portions of the IVC, aorta and pancreas are normal however imaged incompletely. IMPRESSION: No gallstones with severely thickened anterior gallbladder wall at 1.5 cm may suggest acalculus cholecystitis. Chronic medical renal disease. Hepatomegaly. at 1153 Reported and signed by: Thony Doyle M.D. CC: Bowen Hairston DO Technologist: MAZIN PRUITT RT(R),RDMS Trnscb Date/Time: 05/08/2019 (1153) t.SDR.TH4 Orig Print D/T: S: 05/08/2019 (1156) Probe: PAGE 1 Signed ReportTROPONIN I [id number] 18:47:00 Test Item Value Reference Range Interpretation Comments TROPONIN I RAPID 0.02 ng/mL 0.00-0.079 N Performed a [facility] ED (test code = by certified op kan EVANS) ISTAT TROPONIN I CRITERIA0.00-0. 08 ng/mL - Negative>0.0 8 ng/mL - Positive The us e of serial sampling and te sting protocol is are commended practice.An perez vated troponin level alone is often not suffi cient fordiagnosis of myocardial infarction. Tro ponin results obtaine d by different assay s may vary.Evaluation of the extent of myoca rdial damage based on increase of troponin would be valid only if similar methodology is used. UA [id number] 17:58:00 Test Item Value Reference Range Interpretation Comments UA WBC (test code = WBCU) 0-3 /HPF 0-3 UA RBC (test code = RBCU) NONE SEEN /HPF 0-3 UA EPITHELIAL CELLS (test code FEW /LPF NONE-FEW = EPIU) UA BACTERIA (test code = BACU) RARE /HPF NEGATIVE UA MUCUS (test code = MUCU) 1+ /LPF NONE SEEN A URINALYSIS [id number] 17:50:00 Test Item Value Reference Range Interpretation Comments UA COLOR (test code = COLU) YELLOW YELLOW UA APPEARANCE (test code = CLEAR CLEAR APPU) UA GLUCOSE DIPSTICK (test code NEGATIVE MG/DL NEGATIVE = DGLUU) UA BILIRUBIN DIPSTICK (test NEGATIVE NEGATIVE code = BILU) UA KETONE DIPSTICK (test code NEGATIVE MG/DL NEGATIVE = KETU) UA SPECIFIC GRAVITY (test code 1.010 1.000-1.030 = SGU) UA BLOOD DIPSTICK (test code = NEGATIVE NEGATIVE JESSICA) UA PH DIPSTICK (test code = 7.0 5.0-8.0 TYSON) UA PROTEIN DIPSTICK (test code 30 (1+) MG/DL NEGATIVE A = PROU) UA UROBILINOGEN DIPSTICK (test 0.2 EU/dL <=1.0 code = URO) UA NITRITE DIPSTICK (test code NEGATIVE NEGATIVE = KHAI) UA LEUKOCYTE ESTERASE DIPSTICK NEGATIVE NEGATIVE (test code = LEUU) - XR CHEST 1 [id number] 16:27:00 Constable: St: REG -- Name: JORGE GOINS : 1985 Age/S: 33/M [address] [facility] Unit #: [id number] Loc: [place] [address] Phys: Olinda Carlson MD Acct: [id number] Dis Date: Status: REG ER PHONE #: Exam Date: 08/25/2018 5488 FAX #: Reason: CHEST PAIN e elvated bp EXAMS: CPT CODE: [id number] XR CHEST 1 V 92660 EXAM: Portable chest x-ray, one view INDICATION: CHEST PAIN e elvated bp LOCATION CODE: C3 COMPARISON: May 31, 2018 TECHNIQUE: Single Portable AP upright view of the chest DISCUSSION: Cardiac silhouette is moderately enlarged. Mediastinal contours unremarkable. No pneumothorax or pleural effusion seen. No infiltrative process. Mild pulmonary vascular redistribution are noted. IMPRESSION: 1. Cardiomegaly. 2. Mild pulmonary vascular congestion. at 8705 Reported and signed by: Philip Higgins M.D. CC: Technologist: BHAVANA BAILEY RT (R)(CT) Trnscrd Date/Time/By: 08/25/2018 (7364) : By: LourdesHPD PAGE 1 Signed Report Constable: St: REG -- Name: JORGE GOINS [facility] : 1985 Age/S: 33/M [address] [facility] Unit #: [id number]: [place] [address] Phys: Olinda Carlson MD Acct: [id number] Dis Date: Status: REG ER PHONE #: Exam Date: 08/25/2018 1628 FAX #: Reason: CHEST PAIN e elvated bp EXAMS: CPT CODE: [id number] CHEST 1 V 88682 (Continued) Orig Print D/T: S: 08/25/2018 (4523) PAGE 2 Signed ReportBNP [id number] 15:57:00 Test Item Value Reference Range Interpretation Comments BNP RAPID (test code 1064 pg/mL 0.0-100.0 H Perform ed at [facility] = BNPRAP) ED by certified sizing machine operator COMPREHENSIVE METABOLIC [id number] 15:51:00 Test Item Value Reference Range Interpretation Comments SODIUM (test code = 135 MMOL/L 135-147 N NA) POTASSIUM (test code 3.6 MMOL/L 3.6-5.2 N = K) CHLORIDE (test code = 98 MMOL/L 98-108 N CL) CARBON DIOXIDE (test 28 mmol/L 21-32 N code = CO2) GLUCOSE (test code = 95 mg/dL 70-110 N GLU) BLOOD UREA NITROGEN 29 MG/DL 6-21 H (test code = BUN) GLOMERULAR FILTRATION 57 >60 L The es timated RATE (test code = glomerular filtration GFR) rate is compute d usingpatient ra ce, age (>18), sex, and serum creatinin e. If anyof the neede d data elements are mi ssing the Laboratory cannot compute an kevin mation of the glomerul ar filtration rate . CREATININE (test code 1.8 mg/dL 0.6-1.3 H = CREAT) TOTAL PROTEIN (test 8.3 g/dL 6.0-8.2 H code = PROT) ALBUMIN (test code = 3.3 G/DL 3.7-5.5 L ALB) CALCIUM (test code = 9.1 mg/dL 8.7-10.5 N CA) BILIRUBIN TOTAL (test 1.00 mg/dL 0.0-1.0 N code = BILT) SGOT/AST (test code = 28 UNITS/L 10-37 N AST) SGPT/ALT (test code = 32 UNITS/L 12-78 N ALT) ALKALINE PHOSPHATASE 127 UNITS/L 46-116 H (test code = ALKP) PROTHROMBIN [id number] 15:47:00 Test Item Value Reference Range Interpretation Comments PROTHROMBIN TIME 16.2 SECONDS 9.2-12.1 H PATIENT (test code = PTP) INTERNATIONAL NORMAL 1.4 The INR is to be used RATIO (test code = only for monitoring INR) ORAL ANTICOAGULANTTH ERAPY. Indication INR Value1. Prophylaxis/jaxon atment of: Venous Thro mbosis, Pulmonary Embol ism 2.0 - 3.02. Prevent ion of systemic emboli sm from: Tissue he art valves 2.0 - 3 .0 Acute myocardia l infarction (to present systemic emboli sm)* 2.0 - 3.0 Valvu lar heart disease 2 .0 - 3.0 Atrial fibrillation 2. 0 - 3.03. Mechanica l prosthetic valv es (high risk) 2.5 - 3.5 * If oral anticoagulant t herapy is elected to preventrecurren t myocardial infa rction, an INR of 2.5-3 .5 isrecommended, consistent with Food and Drug Administrationr ecommen dations. THROMBOPLASTIN TIME [id number] 15:47:00 Test Item Value Reference Range Interpretation Comments THROMBOPLASTIN TIME 30.9 SECONDS 23.4-37.0 N Therape utic Range PARTIAL (test code = for Hep dennis PTT) EFFECTIVE Heparin IU/mL a PTT Seconds0.3 64.3 0.7 88.8 COMPREHENSIVE METABOLIC [id number] 15:46:00 Test Item Value Reference Range Interpretation Comments SODIUM (test code = 135 MMOL/L 135-147 N NA) POTASSIUM (test code 3.6 MMOL/L 3.6-5.2 N = K) CHLORIDE (test code = 98 MMOL/L 98-108 N CL) CARBON DIOXIDE (test 28 mmol/L 21-32 N code = CO2) GLUCOSE (test code = mg/dL 70-110 GLU) BLOOD UREA NITROGEN 29 MG/DL 6-21 H (test code = BUN) GLOMERULAR FILTRATION 57 >60 L The es timated RATE (test code = glomerular filtration GFR) rate is compute d usingpatient ra ce, age (>18), sex, and serum creatinine. If anyof the needed data elements are mi ssing the Laboratory cannot compute an kevin mation of the glomerul ar filtration rate . CREATININE (test code 1.8 mg/dL 0.6-1.3 H = CREAT) TOTAL PROTEIN (test g/dL 6.0-8.2 code = PROT) ALBUMIN (test code = G/DL 3.7-5.5 ALB) CALCIUM (test code = mg/dL 8.7-10.5 CA) BILIRUBIN TOTAL (test mg/dL 0.0-1.0 code = BILT) SGOT/AST (test code = UNITS/L 10-37 AST) SGPT/ALT (test code = UNITS/L 12-78 ALT) ALKALINE PHOSPHATASE UNITS/L 46-116 (test code = ALKP) TROPONIN I [id number] 15:40:00 Test Item Value Reference Range Interpretation Comments TROPONIN I RAPID 0.03 ng/mL 0.00-0.079 N Performed a t [facility] (test code = by certified op kan EVANS) ISTAT TROPONIN I CRITERIA0.00-0. 08 ng/mL - Negative>0.0 8 ng/mL - Positive The us e of serial sampling and te sting protocol is are commended practice.An perez vated troponin level alone is often not suffi cient fordiagnosis of myocardial infarction. Tro ponin results obtaine d by different assay s may vary.Evaluation of the extent of myoca rdial damage based on increase of troponin would be valid only if similar methodology is used. 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 CBC W/AUTO [id number] 15:33:00 Test Item Value Reference Range Interpretation Comments WHITE BLOOD CELL (test code = WBC) 6.7 K/MM3 5.0-12.0 N RED BLOOD CELL (test code = RBC) 4.40 M/MM3 4.70-6.10 L HEMOGLOBIN (test code = HGB) 12.2 G/DL 14.0-18.0 L HEMATOCRIT (test code = HCT) 38.0 % 37.0-49.0 N MEAN CELL VOLUME (test code = MCV) 86 fL 80-94 N MEAN CELL HGB (test code = MCH) 27.7 PGM 27-31 N MEAN CELL HGB CONCENTRATION (test 32.1 G/DL 33-37 L code = MCHC) RED CELL DISTRIBUTION WIDTH (test 16.6 % 11.5-15.5 H code = RDW) PLATELET COUNT (test code = PLT) 383 K/MM3 130-400 N MEAN PLATELET VOLUME (test code = 9.6 fl 7.4-10.4 N MPV) NEUTROPHIL % (test code = NT%) 68.7 % 43-65 H LYMPHOCYTE % (test code = LY%) 23.5 % 20.5-45.5 N MONOCYTE % (test code = MO%) 6.3 % 5.5-11.7 N EOSINOPHIL % (test code = EO%) 1.2 % 0.9-2.9 N BASOPHIL % (test code = BA%) 0.3 % 0.2-1.0 N NEUTROPHIL # (test code = NT#) 4.61 K/mm3 2.2-4.8 N LYMPHOCYTE # (test code = LY#) 1.58 K/mm3 1.3-2.9 N MONOCYTE # (test code = MO#) 0.42 K/mm3 0.3-0.8 N EOSINOPHIL # (test code = EO#) 0.08 K/MM3 0.0-0.2 N BASOPHIL # (test code = BA#) 0.02 K/mm3 0.0-0.1 N Notes Date/Time Note Provider Source 2022-11-07 11:50:00-00:00 [id number] [address] PATIENT NAME: JORGE GOINS ADMIT DATE: 10/24 ACCOUNT NO: [id number] ROOM NO: G.[id number] AGE: 37 REPORT TYPE: 360 - QUERY RESPONSE DOCUMENT SEX: M ADMITTING PHYSICIAN:Reed Lizama MD ATTENDING PHYSICIAN:Reed Lizama MD Provider Query QUERY TEXT: Condition General 360MD Query related questions should be directed to: [facility] Coding Query Hotline Based on your medical judgment and below mention ed clinical indicators kindly further specify the cause and effect relation between Urinary tract infection and fo holly Cather if any (Urinary tract infection due to zuñiga Cather s, Urinary tract infection not due to zuñiga Cather , unspecified or other more appropriate diagnosis) The patient's Clinical Indicators include: *UTI:Infectious Dis. Progress Note 10/31/2022 (1 ) but he did have urinary retention after his para lysis and was regularly self catheterizing himself for ne urogenic bladderNephrology Consultation Note 10/25/2022 (2) Piperacillin/Tazo 3.375 GM Inj:MEDICATION:2022 Options provided: -- Respond - Create new note now -- Dismiss - Not applicable / Not valid -- Dismiss - Clinically unable to determine / Un known -- Assign to another provider QUERY RESPONSE: UTI, POA BUT SELF CATH Query created by: Julienne Zambrano on 11/07/2022 4:38 AM QUERY TEXT: POA Indicator 360MD Query related questions should be directed to: 800APP Coding Query Hotline Please indicate if the diagnosis of sepsis was p resent on admission? The patient's Clinical Indicators include: Sepsis :Infect Disease Consult Note 10/25/2022 ( 2) Options provided: -- Yes -- No -- W -- Other - I will add my own diagnosis -- Dismiss - Not applicable / Not valid -- Dismiss - Clinically unable to determine / Un known -- Assign to another provider QUERY RESPONSE: Yes- The condition was present at the time of in patient admission. Query created by: Julienne Zambrano on 11/07/2022 4:41 AM Electronically Signed by Reed Lizama MD on 10/24 11/15 at 1150 PATIENT NAME: JORGE GOINS [id number] 11:46:00-00:00 [facility]) Infectious Dis. Progress Note REPORT#:[id number] REPORT STATUS: Signed DATE:11/02/22 TIME: 1146 PATIENT: JORGE GOINS UNIT #: [id number] ROOM/BED: [place] [address] : [birth year] AGE: 37 SEX: M ATTEND: Reed Lizama MD ADM AUTHOR: Isaías Vizcarra BRAZING MACHINE TENDER * ALL edits or amendments must be made on the rimidi/computer document * Isaías Vizcarra 11/02/22 1146: Subjective Chief complaint: F/U Bacteremia Patient reports: Yes: feeling better. No: com plaints, abdominal pain, back pain, bowel movement, burning with urination, cough, diarrhea, fever, headache, nausea, pain, pain controlled, shortness of breath, vomiting, wheez ing. Nursing reports: No: complaints. Review of Systems All systems rev neg: except as marked Objective General VS/I O: Vital Signs Date Temp Pulse Resp B/P B/P Mean Pulse Ox FiO2 11/01-11/02 98.1-99.1 79-92 17-18 99-118/65-75 0.0-89.6 92-100 Last Documented: Result Date Time Pulse Ox 100 11/02 1113 B/P 118/75 11/02 1113 B/P Mean 89.6 11/02 1113 Temp 99.0 11/02 1113 Pulse 81 11/02 1113 Resp 17 11/02 1113 O2 Delivery Room air 11/01 0716 Vital Signs: Date Time Temp Pulse Resp B/P B/P Pulse O2 O2 F low FiO2 Mean Ox Delivery Rate 11/02 1113 99.0 81 17 118/75 89.6 100 11/02 0714 99.1 79 17 103/65 77.8 100 11/02 0353 98.1 81 18 99/67 0.0 97 11/01 2323 98.8 92 18 115/75 88.1 92 11/01 1911 98.1 92 18 108/72 84.4 100 24 hour I O ending at 0700: 11/02 0700 11/01 1900 Intake Total Output Total 550 Balance -550 Output, Urine 550 PATIENT WEIGHT: Weight (lb): Weight (oz): Weight (kg): 100.000 Physical Exam General appearance: obese, alert, awake, oriente d, no acute distress Wound/incision: Location: Sacral ulcer (+) Vac Head/Eyes: atraumatic, normocephalic Neck: supple/no meningismus, no JVD Cardiovascular: normal heart sounds, regular rat e rhythm, no murmur Respiratory: clear to auscultation, aerating wel l, symmetric expansion Abdomen: non-tender, normal bowel sounds, soft, rectal tube Genitourinary: urinary catheter (condom cath) Extremities: no cyanosis, no edema 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, oriented X 3, paraplegia Considered stroke alert: no Skin: dry, no rash Results Findings/Data: Laboratory Tests 11/01 1616 Hematology WBC (4.5 - 11.0 x10 3/uL) 14.6 H RBC (4.00 - 5.60 x10 6/uL) 3.10 L Hgb (12.5 - 16.9 g/dL) 9.0 L Hct (37.5 - 50.7 %) 28.6 L MCV (81.0 - 99.0 fL) 92.3 MCH (27.0 - 33.0 pg) 29.0 MCHC (33.0 - 37.0 g/dL) 31.5 L RDW (11.5 - 14.5 %) 16.7 H Plt Count (150 - 400 x10 3/uL) 430 H MPV (7.0 - 9.0 fL) 10.9 H Neut % (Auto) (56.0 - 77.0 %) 78.9 H Lymph % (Auto) (14.0 - 32.0 %) 10.3 L Citrus % (Auto) (4.8 - 9.0 %) 6.6 Eos % (Auto) (0.3 - 3.7 %) 1.2 Baso % (Auto) (0.0 - 2.0 %) 0.3 Neut # (Auto) (2.0 - 7.6 x10 3/uL) 11.50 H Lymph # (Auto) (1.0 - 3.8 x10 3/uL) 1.51 Citrus # (Auto) (0.1 - 0.8 x10 3/uL) 0.97 H Eos # (Auto) (0.0 - 0.2 x10 3/uL) 0.18 Baso # (Auto) (0.0 - 0.2 x10 3/uL) 0.04 Abs Immat Gran (auto) (0.00 - 0.03 x10 3/uL) 0. 40 H Add Manual Diff NO Immature Gran % (0.0 - 2.0 %) 2.7 H Nucleated RBC % (0 - 0 %) 0.0 Nucleated RBCs # (Man) (0.0 - 0.1 x10 3/uL) 0. 00 Results: labs reviewed, vital signs reviewed, vi josseline signs stable, current med profile rev'd Diagnosis, Assessment Plan Free Text A P: Assessment: Mr. 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 Patient self catheterizes himself. He also developed a sacral decub ulcer around 2 years ag o, which seems to be slowly healing. [facility] a [facility] and came to the ED with nausea, vomiting , fever, chills. Fever was up to 103 F reportedl y. Here, x-ray of the abdomen shows small bowel obs tructive gas pattern. Patient has been evaluated by general surgery. N o surgical interventions currently recommended. Infectious disease consultation is requested for sacral decub ulcer. He is found to have ESBL E coli bacteremia. *Severe Sepsis, resolving -Tachycardia and tachypnea -JENNIFER -Source: Bacteremia *Bacteremia, Ecoli ESBL -Suspect source of bacteremia is urinary tract. Patient self catheterizes himself, given history of neurogenic bladder. -GI source, given presentation with SBO, is anot her possibility. *PSBO -General Surgery following *Sacral decub ulcer -Sacral decub ulcers seem to be healing, without obvious signs of infection. *Paraplegia *JENNIFER *Metabolic acidosis *UTI Plan: -On Merrem, plan x 2 weeks with a stop date of 0 11/09 -CT reviewed personally (+) bladder diverticulum ; with fluid collection near bladder - PVR with 44ml -DC planning from ID standpoint Pt seen and examined with Tom Le 11/03/22 0757: Attestations Physician Attestation Agree w/findings plan: Agree with the findings and plan as documented martin Vizcarra NP; * my personal evaluation is MDM ENTIRELY DONE BY ME Electronically Signed by Isaías Vizcarra NP on at 1148 Electronically Signed by Tom Elder MD on at 0757 RPT #:[id number] END OF REPORT 2022-11-02 10:45:00-00:00 [facility] REPORT#:[id number] REPORT STATUS: Signed DATE:11/02/22 TIME: 1045 PATIENT: JORGE GOINS UNIT #: [id number] ROOM/BED: [place] [address] : [birth year] AGE: 37 SEX: M ATTEND: Reed Lizama MD ADM AUTHOR: Patrica Caraballo MD * ALL edits or amendments must be made on the [employer] document * Subjective Chief complaint: Nausea/vomiting. 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 He was seen in ER. 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 He denied any recent hematuria or dysuri a or any other systemic complaints. he also denied any orthopnea, cramping, itching, ch patrick of taste, involuntary movements. He denied chronic use of NSAIDs. 11/02 Patient feeling better but still oral intake low . Objective General VS/I O: Vital Signs: Date Time Temp Pulse Resp B/P B/P Pulse O2 O2 F low FiO2 Mean Ox Delivery Rate 11/02 0714 37.3 79 17 103/65 77.8 100 11/02 0353 36.7 81 18 99/67 0.0 97 11/01 2323 37.1 92 18 115/75 88.1 92 11/01 1911 36.7 92 18 108/72 84.4 100 24 hour I O ending at 0700: 11/02 0700 11/01 1900 Intake Total Output Total 550 Balance -550 Output, Urine 550 PATIENT WEIGHT: Weight (lb): Weight (oz): Weight (kg): 100.000 Physical Exam General appearance: alert, awake, oriented Head/eyes: atraumatic, EOMI ENT: moist mucous membranes, normal nose Neck: no JVD, no lymphadenopathy Cardiovascular: normal heart sounds, regular rat e and rhythm Respiratory: aerating well, clear to auscultatio n Abdomen: soft, no distention Genitourinary: no bladder distention, no flank p ain Extremities: no edema, no gangrene, no swelling Considered stroke alert: no Ulcer: Type/cause: pressure Duration: chronic Location: sacral region Stage: 4 Gangrene present: no Diagnosis, Assessment Plan Free Text A P: 7-year-old male with known to have paraplegia [place]wood villed[place] in detention after he had fentanyl poisoning 3 years ago presenting wi th nausea, vomiting, diarrhea and abdominal pain. He was seen in ER. 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 He denied any recent hematuria or dysuri a or any other systemic complaints. he also denied any orthopnea, cramping, itching, ch patrick of taste, involuntary movements. He denied chronic use of NSAIDs. Neph rology following for: 1. JENNIFER or JENNIFER on CKD. We do not have previous la bs to see if he has prior history of kidney disease from his urina ry retention. Plan is to monitor renal function closely. Keep mean arterial pressure ab ove 65 and avoid nephrotoxic agents. Plan is to follow renal ultrasound. 2. Metabolic acidosis: Most likely secondary to poor renal function. Plan is to change IV fluids from normal saline to IV bic arb. Plan is to monitor closely. 3. Hypovolemia: Plan is to monitor input and out put closely with low-dose IV fluids. 4. Urinary tract infection: Plan is to continue IV antibiotics and monitor renal dosing. 5. Hypocalcemia: Most likely secondary to inflam mation. Plan is to monitor ionized calcium and give calcium IV if low. 10/26 1. JENNIFER or JENNIFER on CKD. We do not have previous la bs to see if he has prior history of kidney disease from his urina ry retention. Plan is to monitor renal function closely. Keep mean arterial pressure ab ove 65 and avoid nephrotoxic agents. Renal ultrasound shows mild hydronephros is on the right side. Renal function stable 2. Metabolic acidosis: Most likely secondary to poor renal function. Plan is to change IV fluids from normal saline to IV bic arb. Plan is to monitor closely. 3. Hypovolemia: Plan is to monitor input and out put closely with low-dose IV fluids. 4. Urinary tract infection: Plan is to continue IV antibiotics and monitor renal dosing. 5. Hypocalcemia: Most likely secondary to inflam mation. Plan is to monitor ionized calcium and give calcium IV if low. 6. Hypokalemia: Plan to monitor and replace as n eeded. 10/27 1. JENNIFER or JENNIFER on CKD. We do not have previous la bs to see if he has prior history of kidney disease from his urina ry retention. Plan is to monitor renal function closely. Keep mean arterial pressure ab ove 65 and avoid nephrotoxic agents. Renal ultrasound shows mild hydronephros is on the right side. Renal function stable 2. Metabolic acidosis: Most likely secondary to poor renal function. patient given IV bicarb, plan to follow labs to see if f urther needed. 3. Hypovolemia: Plan is to monitor input and out put closely with low-dose IV fluids. 4. Urinary tract infection: Plan is to continue IV antibiotics and monitor renal dosing. 5. Hypocalcemia: Most likely secondary to inflam mation. Plan is to monitor ionized calcium and give calcium IV if low. 6. Hypokalemia: Plan to monitor and replace as n eeded. 10/29 1. JENNIFER or JENNIFER on CKD. We do not have previous la bs to see if he has prior history of kidney disease from his urina ry retention. Plan is to monitor renal function closely. Keep mean arterial pressure ab ove 65 and avoid nephrotoxic agents. Renal ultrasound shows mild hydronephros is on the right side. Renal function stable 2. Metabolic acidosis: Most likely secondary to poor renal function. patient given IV bicarb, plan to follow labs to see if f urther needed. Metabolic acidosis improving. 3. Hypovolemia: Plan is to monitor input and out put closely with low-dose IV fluids. 4. Urinary tract infection: Plan is to continue IV antibiotics and monitor renal dosing. 5. Hypocalcemia: Most likely secondary to inflam mation. Plan is to monitor ionized calcium and give calcium IV if low. 6. Hypokalemia: Plan to monitor and replace as n eeded 11/02 1. JENNIFER or JENNIFER on CKD. We do not have previous la bs to see if he has prior history of kidney disease from his urina ry retention. Plan is to monitor renal function closely. Keep mean arterial pressure ab ove 65 and avoid nephrotoxic agents. Renal ultrasound shows mild hydronephros is on the right side. Renal function stable 2. Metabolic acidosis: Most likely secondary to poor renal function. patient given IV bicarb, plan to follow labs to see if f urther needed. Metabolic acidosis resolved. 3. Hypovolemia: Plan is to monitor input and out put closely with low-dose IV fluids. Resolved. 4. Urinary tract infection: Plan is to continue IV antibiotics and monitor renal dosing. 5. Hypocalcemia: Most likely secondary to inflam mation. Plan is to monitor ionized calcium and give calcium IV if low. 6. Hypokalemia: Plan to monitor and replace as n eeded 7/Hypotension: Due to poor o ral intake, not on any medication that lowers blood pressure other than metoprolol. Consultants: infectious disease, surgery Electronically Signed by Patrica Caraballo MD on at 1048 RPT #:[id number] END OF REPORT 2022-11-02 09:42:00-00:00 [facility] ([facility] Hospitalist Progress Note REPORT#:[id number] REPORT STATUS: Signed DATE:11/02/22 TIME: 941 PATIENT: JORGE GOINS UNIT #: [id number] ROOM/BED: 6609-1 : 86 AGE: 37 SEX: M ATTEND: Reed Lizama MD ADM AUTHOR: Reed Lizama MD * ALL edits or amendments must be made on the rimidi/computer document * Subjective Chief complaint: TOLERATED DIET,HAS MILD NAUSEA, NO VOMITING. INF ORMED HE CAN GO TO SNF WITH WOUND VAC. HPI: Patient reports not much change overnight, stephanie numauricio to have back pain and shoulder pains, liquid stools. No overnight even t noted. Plan to challenge oral diet, on clears today. Objective General Medications: Active Meds + DC'd Last 24 Hrs Meropenem (MEROPENEM) 500 MG Q6H IV Sterile Water (WATER FOR INJECTION) 10 ML Meropenem (MEROPENEM) 500 MG ONCE ONE IV Sterile Water (WATER FOR INJECTION) 10 ML Meropenem (MEROPENEM) 500 MG ONCE ONE IV (DC) Sterile Water (WATER FOR INJECTION) 10 ML Sodium Chloride (SODIUM CHLORIDE 0.9%) 1,000 ML .Q10H IV (DC) Methylnaltrexone Stickney (RELISTOR 12MG VIAL) 12 MG Q48H SUBQ Hydrocodone Bitart/Acetaminophen (NORCO 5/325) 1 TAB Q6H PRN PRN PO Morphine Sulfate (morphine SULFATE) 4 MG Q4H PRN PRN IV Calcium Carbonate (TUMS CHEW TAB) 1,000 MG Q2H P RN PRN PO Metoprolol Tartrate (LOPRESSOR) 25 MG Q12HR PO Metoclopramide HCl (REGLAN) 5 MG Q8H PRN PRN IV Sodium Chloride (SODIUM CHLORIDE) 10 ML BID IV ( DC) Meropenem (MEROPENEM) 500 MG Q6H IV (DC) Sterile Water (WATER FOR INJECTION) 10 ML Sodium Chloride (SODIUM CHLORIDE) 10 ML ASDIR ND N IV (DC) Potassium Chloride (POTASSIUM CHLORIDE 20MEQ TAB .ER) 40 MEQ DAILY PRN PRN PO Heparin Sodium (HEPARIN 5000 UNITS/ML) 5,000 UNI T Q12HR SUBQ Acetaminophen (TYLENOL) 650 MG Q4H PRN PRN PO Ondansetron HCl (ZOFRAN) 4 MG Q4H PRN PRN IV Temazepam (RESTORIL) 15 MG BEDTIME PRN PRN PO Physical Exam General appearance: chronically ill appearing, o bese, alert, awake Neck: no JVD, HAS A SHORT CARLSON Cardiovascular: normal heart sounds, regular rat e rhythm Respiratory: aerating well, clear to auscultatio n Abdomen: non-tender, normal bowel sounds, soft, no distention Extremities: no edema Musculoskeletal: PARAPLEGIA WITH MUSCLE ATROPHY 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, oriented X 3, normal speech, P ARAPLEGIA Considered stroke alert: no Skin: dry Wound/incision: Location: WOUND VAC IN PLACE Ulcer: Type/cause: pressure Duration: chronic Location: sacral region Stage: 4 Gangrene present: no Psychiatry: normal affect, normal judgment/insig ht Results Findings/Data: Laboratory Tests 11/01 1616 Hematology WBC (4.5 - 11.0 x10 3/uL) 14.6 H RBC (4.00 - 5.60 x10 6/uL) 3.10 L Hgb (12.5 - 16.9 g/dL) 9.0 L Hct (37.5 - 50.7 %) 28.6 L MCV (81.0 - 99.0 fL) 92.3 MCH (27.0 - 33.0 pg) 29.0 MCHC (33.0 - 37.0 g/dL) 31.5 L RDW (11.5 - 14.5 %) 16.7 H Plt Count (150 - 400 x10 3/uL) 430 H MPV (7.0 - 9.0 fL) 10.9 H Neut % (Auto) (56.0 - 77.0 %) 78.9 H Lymph % (Auto) (14.0 - 32.0 %) 10.3 L Citrus % (Auto) (4.8 - 9.0 %) 6.6 Eos % (Auto) (0.3 - 3.7 %) 1.2 Baso % (Auto) (0.0 - 2.0 %) 0.3 Neut # (Auto) (2.0 - 7.6 x10 3/uL) 11.50 H Lymph # (Auto) (1.0 - 3.8 x10 3/uL) 1.51 Citrus # (Auto) (0.1 - 0.8 x10 3/uL) 0.97 H Eos # (Auto) (0.0 - 0.2 x10 3/uL) 0.18 Baso # (Auto) (0.0 - 0.2 x10 3/uL) 0.04 Abs Immat Gran (auto) (0.00 - 0.03 x10 3/uL) 0. 40 H Add Manual Diff NO Immature Gran % (0.0 - 2.0 %) 2.7 H Nucleated RBC % (0 - 0 %) 0.0 Nucleated RBCs # (Man) (0.0 - 0.1 x10 3/uL) 0.0 0 Diagnosis, Assessment Plan Consultants: infectious disease, surgery Free Text DxA P Notes Free text DxA P notes: 37-year-old, with history of fentanyl OD, cardia c arrest, paraplegia, and ascending thoracic aneurysm repair, neurogenic b ladder, and chronic sacral decubitus ulcer is admitted with SBO, and UTI. Urinary tract infection WITH BACTEREMIA WITH E.C STEWART/ESBL - NOW ON MERREM,OFF VANC, ID SEEN, X 14 DAYS UNTIL 11/09/22, S/P PICC , PLAN FOR SNF TX, STILL HIGH ESR/CRP ILEUS VS pSBO, Noted on REPEAT CT ABD - IMPROVED , GOOD BM, GS SEEN, REPEAT CT ABD NOTED, TOLERATED DIET General surgery consulted, and evaluated patien t, had large bowel movement during eval. RXT COLITIS ON CT ABD TO UTI - GI SEEN, ELEVATED ESR/CRP DUE TO UTI Chronic Sacral Decubitus Ulc er - NOW ON WOUND VAC, WC SEEN, TX TO SNF IN [facility] TO ARRANGE ARF (PRERENAL) on CRF - BETTER, FROM 3.2 TO 2.4, 1.4 NOW, OFF ARB/CECI, RENAL SEEN H/O Paraplegia FROM CARDIAC ARREST OR FROM THORA CIC SURGERY - STABLE H/O Neurogenic bladder - ON SELF CATH AT HOME, W ITH COMPLICATION OF UTI DVT PX - Continue Heparin Code Full Quality: Gen Med Crit Care Advanced Care Plan 65 or Older Discussed with: patient Electronically Signed by Reed Lizama MD on 11/02 at 0948 RPT #:[id number] END OF REPORT 2022-11-01 22:35:00-00:00 [facility] ([facility]) General Surgery Progress Note REPORT#:[id number] REPORT STATUS: Signed DATE:11/01/22 TIME: 2234 PATIENT: JORGE GOINS UNIT #: [id number] ROOM/BED: 6609-1 : 86 AGE: 37 SEX: M ATTEND: Reed Lizama MD ADM AUTHOR: Justina Klein MD * ALL edits or amendments must be made on the rimidi/computer document * Subjective Chief complaint: SBO, Sacral decubitus HPI: Doing ok. He was seen earlier this after noon. Slight flatus, - BM. Tolerated a sandwich for lunch. Patient reports: Yes: feeling better, flatus, nausea, tolerating diet. No: complaints, abdominal pain, ambulating, bowel movement, chest pain, co nstipation, diarrhea, fever, incisional pain, pain, pain controlled, shortnes s of breath, vomiting. Review of Systems Constitutional: malaise. Denies: chills, fat igue, fever, generalized weakness, lethargy, recent wt loss, other. Skin: Denies: abrasion, bruising, contusion, diaphores is, ecchymosis, itching, laceration, rash, swelling, other. Allergy/Immun: Denies: allergic reaction, anaphylaxis, hives, i tching, rhinorrhea, sneezing, other. Eyes: Denies: redness, discharge, visual loss/blurred, itching, diplopia, eye pain, photophobia, swelling, other. ENT: Denies: ear drainage, ear ringing, earache, hear ing loss, mouth pain, nasal congestion, nose bleeding, sinus problem, sore t hroat, throat pain, throat swelling, tongue pain, tongue swelling, toothach e, voice change, other. Respiratory: Denies: COATES (dyspnea on exertion), hemoptysis, n on productive cough, parox nocturnal dyspnea, pleurisy, pleuritic pain, pneumonia, productive cough (sputum ), SOB, wheezing, other. Cardiovascular: Denies: chest pain, COATES (dyspnea on exer tion), edema, orthopnea, palpitations, parox nocturnal dyspnea, other. GI: Reports: nausea. Denies: abdominal pain, anorexi a, constipation, diarrhea, dysphagia, GERD, hematemesis , hematochezia, hiatal hernia, melena, rectal pain, vomiting, other. : Denies: dysuria, flank pain, frequency, hematuria, nocturia, penile discharge, penile lesion, testicular pa in, testicular swelling, urgency, urinary retention, other. Objective General VS/I O: Last Documented: Result Date Time Pulse Ox 100 11/01 1910 B/P 108/72 11/01 1910 B/P Mean 84.4 11/01 1910 Temp 98.1 11/01 1910 Pulse 92 11/01 1910 Resp 18 11/01 1910 O2 Delivery Room air 11/02 715 Vital Signs Date Temp Pulse Resp B/P B/P Mean Pulse Ox FiO2 11/01 97.9-98.2 91-98 16-18 105-127/65-79 81.6 -95 99-100 24 hour I O ending at 0700: 11/01 0700 10/31 190 Intake Total Output Total 250 Balance -250 Output, Urine 250 PATIENT WEIGHT: Weight (lb): Weight (oz): Weight (kg): 100.000 Medications: Active Meds + DC'd Last 24 Hrs Sodium Chloride (SODIUM CHLORIDE 0.9%) 1,000 ML .Q10H IV (DC) Methylnaltrexone Stickney (RELISTOR 12MG VIAL) 12 MG Q48H SUBQ Hydrocodone Bitart/Acetaminophen (NORCO 5/325) 1 TAB Q6H PRN PRN PO Morphine Sulfate (morphine SULFATE) 4 MG Q4H ND N PRN IV Calcium Carbonate (TUMS CHEW TAB) 1,000 MG Q2H P RN PRN PO Metoprolol Tartrate (LOPRESSOR) 25 MG Q12HR PO Metoclopramide HCl (REGLAN) 5 MG Q8H PRN PRN IV Sodium Chloride (SODIUM CHLORIDE) 10 ML BID IV ( DC) Meropenem (MEROPENEM) 500 MG Q6H IV (DC) Sterile Water (WATER FOR INJECTION) 10 ML Sodium Chloride (SODIUM CHLORIDE) 10 ML ASDIR ND N IV (DC) Potassium Chloride (POTASSIUM CHLORIDE 20MEQ TAB .ER) 40 MEQ DAILY PRN PRN PO Heparin Sodium (HEPARIN 5000 UNITS/ML) 5,000 UNI T Q12HR SUBQ Acetaminophen (TYLENOL) 650 MG Q4H PRN PRN PO Ondansetron HCl (ZOFRAN) 4 MG Q4H PRN PRN IV Temazepam (RESTORIL) 15 MG BEDTIME PRN PRN PO Nutrtion assessment: The data set between the solid lines has been im ported from the dietitian's assessment. BMI Calculated: 30.7 Nutrition related diagnosis: Nutrition diagnosis details: Nutrition problem: Increased nutrient needs Nutrition etiology: WOUNDS Nutrition signs and symptoms: WOUND VAC IN PLACE Nutrition prescription: 1. A DD ENSURE CLEAR TID 2. ADVANCE DIET TOLERATED TO REGULAR, HIGH PROTEIN Dietitian name: Jagdish Villa, DIET Assessment completed: 11/01/22 Physical Exam General appearance: chronica lly ill appearing, alert, awake, oriented, no acute distress, pleasant, conversational, mental statu s normal, no respiratory distress Wound/incision: Location: sacral Site condition: granulating HEENT: atraumatic, normocephalic Neck: supple/no meningismus Cardiovascular: tachycardia, regular rate and rh ythm Chest: normal appearance Respiratory: aerating well Abdomen: distended, non-tender, soft, no guardin g Rectal: rectal tube in place with no stool Extremities: normal temperature 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, oriented x 3, CNII-XII intact, normal speech Considered stroke alert: no Skin: normal color, normal temperature, normal t urgor Ulcer: Type/cause: pressure Duration: chronic Location: sacral region Stage: 4 Gangrene present: no Psychiatry: normal affect, normal judgment/insig ht, normal mood Results Findings/Data: Laboratory Tests 11/01/221615: [Embedded Image Not Available] Laboratory Tests 11/02 1615 Hematology WBC (4.5 - 11.0 x10 3/uL) 14.6 H RBC (4.00 - 5.60 x10 6/uL) 3.10 L Hgb (12.5 - 16.9 g/dL) 9.0 L Hct (37.5 - 50.7 %) 28.6 L MCV (81.0 - 99.0 fL) 92.3 MCH (27.0 - 33.0 pg) 29.0 MCHC (33.0 - 37.0 g/dL) 31.5 L RDW (11.5 - 14.5 %) 16.7 H Plt Count (150 - 400 x10 3/uL) 430 H MPV (7.0 - 9.0 fL) 10.9 H Neut % (Auto) (56.0 - 77.0 %) 78.9 H Lymph % (Auto) (14.0 - 32.0 %) 10.3 L Citrus % (Auto) (4.8 - 9.0 %) 6.6 Eos % (Auto) (0.3 - 3.7 %) 1.2 Baso % (Auto) (0.0 - 2.0 %) 0.3 Neut # (Auto) (2.0 - 7.6 x10 3/uL) 11.50 H Lymph # (Auto) (1.0 - 3.8 x10 3/uL) 1.51 Citrus # (Auto) (0.1 - 0.8 x10 3/uL) 0.97 H Eos # (Auto) (0.0 - 0.2 x10 3/uL) 0.18 Baso # (Auto) (0.0 - 0.2 x10 3/uL) 0.04 Abs Immat Gran (auto) (0.00 - 0.03 x10 3/uL) 0. 40 H Add Manual Diff NO Immature Gran % (0.0 - 2.0 %) 2.7 H Nucleated RBC % (0 - 0 %) 0.0 Nucleated RBCs # (Man) (0.0 - 0.1 x10 3/uL) 0.0 0 Diagnosis, Assessment Plan Problem List/A P: 1. Ileus Free Text A P: Doing ok. Tolerated diet. Continue current care. No new recs. at 2230 RPT #:[id number] END OF REPORT 2022-11-01 21:57:00-00:00 [facility] RE[facility]#:[id number] REPORT STATUS: Signed DATE:11/01/22 TIME: 2156 PATIENT: JORGE GOINS UNIT #: [id number] ROOM/BED: [place] [address] : 86 AGE: 37 SEX: M ATTEND: Reed Lizama MD ADM AUTHOR: Patrica Caraballo MD * ALL edits or amendments must be made on the rimidi/computer document * Subjective Chief complaint: Nausea/vomiting. 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 He was seen in ER. 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 He denied any recent hematuria or dysuri a or any other systemic complaints. he also denied any orthopnea, cramping, itching, ch patrick of taste, involuntary movements. He denied chronic use of NSAIDs. 11/01 Patient feeling better but still oral intake low . Objective General VS/I O: Vital Signs: Date Time Temp Pulse Resp B/P B/P Pulse O2 O2 F low FiO2 Mean Ox Delivery Rate 11/02 0614 37.3 79 17 103/65 77.8 100 11/02 0353 36.7 81 18 99/67 0.0 97 11/01 2323 37.1 92 18 115/75 88.1 92 11/01 1911 36.7 92 18 108/72 84.4 100 24 hour I O ending at 0700: 11/02 0700 11/01 1900 Intake Total Output Total 550 Balance -550 Output, Urine 550 PATIENT WEIGHT: Weight (lb): Weight (oz): Weight (kg): 100.000 Physical Exam General appearance: alert, awake, oriented Head/eyes: atraumatic, EOMI ENT: moist mucous membranes, normal nose Neck: no JVD, no lymphadenopathy Cardiovascular: normal heart sounds, regular rat e and rhythm Respiratory: aerating well, clear to auscultatio n Abdomen: soft, no distention Genitourinary: no bladder distention, no flank p ain Extremities: no edema, no gangrene, no swelling Considered stroke alert: no Ulcer: Type/cause: pressure Duration: chronic Location: sacral region Stage: 4 Gangrene present: no Diagnosis, Assessment Plan Free Text A P: 7-year-old male with known to have paraplegia dawood corcorang in detention after he had fentanyl poisoning 3 years ago presenting wi th nausea, vomiting, diarrhea and abdominal pain. He was seen in ER. 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 He denied any recent hematuria or dysuri a or any other systemic complaints. he also denied any orthopnea, cramping, itching, ch patrick of taste, involuntary movements. He denied chronic use of NSAIDs. Neph rology following for: 1. JENNIFER or JENNIFER on CKD. We do not have previous la bs to see if he has prior history of kidney disease from his urina ry retention. Plan is to monitor renal function closely. Keep mean arterial pressure ab ove 65 and avoid nephrotoxic agents. Plan is to follow renal ultrasound. 2. Metabolic acidosis: Most likely secondary to poor renal function. Plan is to change IV fluids from normal saline to IV bic arb. Plan is to monitor closely. 3. Hypovolemia: Plan is to monitor input and out put closely with low-dose IV fluids. 4. Urinary tract infection: Plan is to continue IV antibiotics and monitor renal dosing. 5. Hypocalcemia: Most likely secondary to inflam mation. Plan is to monitor ionized calcium and give calcium IV if low. 10/26 1. JENNIFER or JENNIFER on CKD. We do not have previous la bs to see if he has prior history of kidney disease from his urina ry retention. Plan is to monitor renal function closely. Keep mean arterial pressure ab ove 65 and avoid nephrotoxic agents. Renal ultrasound shows mild hydronephros is on the right side. Renal function stable 2. Metabolic acidosis: Most likely secondary to poor renal function. Plan is to change IV fluids from normal saline to IV bic arb. Plan is to monitor closely. 3. Hypovolemia: Plan is to monitor input and out put closely with low-dose IV fluids. 4. Urinary tract infection: Plan is to continue IV antibiotics and monitor renal dosing. 5. Hypocalcemia: Most likely secondary to inflam mation. Plan is to monitor ionized calcium and give calcium IV if low. 6. Hypokalemia: Plan to monitor and replace as n eeded. 10/27 1. JENNIFER or JENNIFER on CKD. We do not have previous la bs to see if he has prior history of kidney disease from his urina ry retention. Plan is to monitor renal function closely. Keep mean arterial pressure ab ove 65 and avoid nephrotoxic agents. Renal ultrasound shows mild hydronephros is on the right side. Renal function stable 2. Metabolic acidosis: Most likely secondary to poor renal function. patient given IV bicarb, plan to follow labs to see if f urther needed. 3. Hypovolemia: Plan is to monitor input and out put closely with low-dose IV fluids. 4. Urinary tract infection: Plan is to continue IV antibiotics and monitor renal dosing. 5. Hypocalcemia: Most likely secondary to inflam mation. Plan is to monitor ionized calcium and give calcium IV if low. 6. Hypokalemia: Plan to monitor and replace as n eeded. 10/29 1. JENNIFER or JENNIFER on CKD. We do not have previous la bs to see if he has prior history of kidney disease from his urina ry retention. Plan is to monitor renal function closely. Keep mean arterial pressure ab ove 65 and avoid nephrotoxic agents. Renal ultrasound shows mild hydronephros is on the right side. Renal function stable 2. Metabolic acidosis: Most likely secondary to poor renal function. patient given IV bicarb, plan to follow labs to see if f urther needed. Metabolic acidosis improving. 3. Hypovolemia: Plan is to monitor input and out put closely with low-dose IV fluids. 4. Urinary tract infection: Plan is to continue IV antibiotics and monitor renal dosing. 5. Hypocalcemia: Most likely secondary to inflam mation. Plan is to monitor ionized calcium and give calcium IV if low. 6. Hypokalemia: Plan to monitor and replace as n eeded 11/01 1. JENNIFER or JENNIFER on CKD. We do not have previous la bs to see if he has prior history of kidney disease from his urina ry retention. Plan is to monitor renal function closely. Keep mean arterial pressure ab ove 65 and avoid nephrotoxic agents. Renal ultrasound shows mild hydronephros is on the right side. Renal function stable 2. Metabolic acidosis: Most likely secondary to poor renal function. patient given IV bicarb, plan to follow labs to see if f urther needed. Metabolic acidosis resolved. 3. Hypovolemia: Plan is to monitor input and out put closely with low-dose IV fluids. Resolved. 4. Urinary tract infection: Plan is to continue IV antibiotics and monitor renal dosing. 5. Hypocalcemia: Most likely secondary to inflam mation. Plan is to monitor ionized calcium and give calcium IV if low. 6. Hypokalemia: Plan to monitor and replace as n eeded Consultants: infectious disease, surgery Electronically Signed by Patrica Caraballo MD on at 1045 RPT #:[id number] END OF REPORT 2022-11-01 18:57:00-00:00 [id number] [place] [address] PATIENT NAME: JORGE GOINS ADMIT DATE: 10/24 ACCOUNT NO: [id number] ROOM NO: [facility] AGE: 37 REPORT TYPE: PROGRESS NOTE SEX: M ADMITTING PHYSICIAN:Reed Lizama MD ATTENDING PHYSICIAN:Reed Lizama MD DATE: 11/01/2022 SUBJECTIVE: Events noted. OBJECTIVE: VITAL SIGNS: Temperature afe brile, pulse 90, respiration 16, and blood pressure 115/65. NECK: Supple. CHEST: Clear. SKIN: Examination of wound on the bottom, wound VAC applied. ABDOMEN: Normal. HEART: Normal. LABORATORY DATA: Showing sodium of 134, potassiu m 3.3, chloride 104. WBC is 14.6, hemoglobin 9.0. IMPRESSION: Bottom wound, wound VAC application on the left. RECOMMENDATIONS: The patient will continue curre ntly monitor wound. Nutritional support. Dictated By: Tylor Noland MD Date Dictated: 11/01/2022 18:57:50 Date Transcribed: 11/01/2022 19:34:59 /MARIANNE Receipt ID: [id number] Authenticated by Tylor Noland MD On 023 06:56:24 PM Electronically Signed by Tylor Noland MD on 10/24 at 0656 PATIENT NAME: JORGE GOINS [id number] [birth year] 11:55:00-00:00 [facility] ([facility]) Hospitalist Discharge Summary REPORT#:[id number] REPORT STATUS: Signed DATE:11/01/22 TIME: 1155 PATIENT: JORGE GOINS UNIT #: [id number] ROOM/BED: 6609-1 : 86 AGE: 37 SEX: M ATTEND: Reed Lizama MD ADM AUTHOR: Reed Lizama MD * ALL edits or amendments must be made on the rimidi/computer document * See Addendum General Information Free Text General Notes Free Text General Notes: HE WANTS TO EAT SOLIDS, NO N /V/PAIN, HAS GOOD BM, IF HE CAN EAT HE CAN GO TO SNF TODAY. Date of admission: Observation Start Date: Date of admission: 10/24/22 Discharge date: 11/01/22 Discharge diagnosis: SEE BELOW. Hospital course: 37 BM WITH PARAPLEGIA, NEURO GENIC BLADDER, PREVIOUS CARDIAC ARREST FROM [place] OVERDOSE, ADMITTED WITH UTI/SEPSIS, ARF/ DEHYDRATION, AND PARALYTIC ILEUS, SEEN GI/GS/ID, AND GIVEN IV MERREM FOR E.COLI/ESBL, A ND SEEN WC FOR CHRONIC SACRAL DECUBITUS ULCER WITH WOUND VAC. HE PREFE RS TO BE BACK TO [facility]/SNF AT D/C ONCE TOLERATED DIET. Consultants: infectious disease, surgery Pt. condition on discharge: improved, stable Free Text DxA P Notes Free text DxA P notes: 37-year-old, with history of fentanyl OD, cardia c arrest, paraplegia, and ascending thoracic aneurysm repair, neurogenic b ladder, and chronic sacral decubitus ulcer is admitted with SBO, and UTI. Urinary tract infection WITH BACTEREMIA WITH E.COLI/ESBL - NOW ON MERREM UNTIL , OFF VANC, ID SEEN, S/P PICC, PLAN FOR SNF T X, HIGH ESR/CRP ILEUS VS pSBO, Noted on REPEAT CT ABD - IMPROVED , GOOD BM, GS SEEN, REPEAT CT ABD NOTED, TRY REGULAR DIET, D/C IVF, TX TO SNF IF TOLERATE DIET. General surgery consulted, and evaluated patien t, had large bowel movement during eval. RXT COLITIS ON CT ABD TO UTI - GI SEEN, ELEVATED ESR/CRP Chronic Sacral Decubitus Ulc er - NOW ON WOUND VAC, WC SEEN, TX TO SNF IN [facility] TO ARRANGE ARF (PRERENAL) on CRF - BETTER, FROM 3.2 TO 2.4, 1.4 NOW, OFF ARB/CECI, RENAL SEEN H/O Paraplegia FROM CARDIAC ARREST OR FROM THORA CIC SURGERY - STABLE H/O Neurogenic bladder - ON SELF CATH AT HOME, W ITH COMPLICATION OF UTI DVT PX - Continue Heparin Code Full Med Rec Med Rec Discharge meds: Stop taking the following medications: NIFEdipine (PROCARDIA) 10 MG CAP 30 MILLIGRAM ORAL EVERY 6 HOURS. Days = 30 Qty = 360 IBUPROFEN (ADVIL) 400 MG TAB 400 MILLIGRAM ORAL EVERY 8 HOURS NEEDED as n eeded for PAIN/FEVER LABETALOL (TRANDATE) 100 MG TAB 400 MILLIGRAM ORAL TWICE DAILY. LISINOPRIL (ZESTRIL) 10 MG TAB 10 MILLIGRAM ORAL DAILY. SIMETHICONE (GAS-X) 80 MG TAB.CHEW 80 MILLIGRAM ORAL EVERY 8 HR NEEDED. as need ed for GAS Continue taking these medications: ASPIRIN EC (ECOTRIN) 81 MG TAB.EC 81 MILLIGRAM ORAL DAILY. Days = 30 Qty = 30 SIMETHICONE (GAS-X) 80 MG TAB.CHEW 160 MILLIGRAM ORAL EVERY 6 HOURS NEEDED. as needed for GAS Days = 30 Qty = 120 ACETAMINOPHEN (TYLENOL) 325 MG TAB 650 MILLIGRAM ORAL EVERY 6 HOURS NEEDED. as needed for PAIN AMMONIUM LACTATE (LAC-HYDRIN 5% LOTION) 5 % LOTI ON 1 APPLIC TOPICAL TWICE DAILY. BISACODYL (DULCOLAX) 10 MG SUPP.RECT 10 MILLIGRAM RECTAL. DAILY NEEDED. as needed for CONSTIPATION GABAPENTIN (NEURONTIN) 300 MG CAP 300 MILLIGRAM ORAL THREE TIMES A DAY. MELATONIN (MELATONIN) 5 MG TAB 10 MILLIGRAM ORAL BEDTIME. HYDROcodone/APAP (HYDROcodone/APAP 10/325) 10 MG -325 MG TAB 1 TABLET ORAL EVERY 6 HOURS NEEDED. as neede d for SEVERE PAIN POLYETHYLENE GLYCOL 3350 (MIRALAX) 17 GM POWDER 17 GRAM ORAL DAILY. POLYVINYL ALCOHOL (ARTIFICIAL TEARS 1.4% SOLN) 1 .4 % OPHTH.SOLN 2 DROPS EACH EYE THREE TIMES DAILY NEEDED. a s needed for EYE SENNOSIDES/DOCUSATE SOD (DOK PLUS 8.6/50 MG) 8.6 MG-50 MG TAB 1 TABLET ORAL TWICE DAILY. TERAZOSIN (HYTRIN) 1 MG CAP 1 MILLIGRAM ORAL DAILY. tiZANidine (ZANAFLEX) 2 MG TAB 2 MILLIGRAM ORAL EVERY 8 HR NEEDED. as neede d for MUSCLE SPASMS traMADol (ULTRAM) 50 MG TAB 50 MILLIGRAM ORAL EVERY 8 HR NEEDED. as need ed for PAIN SERTRALINE (ZOLOFT) 100 MG TAB 100 MILLIGRAM ORAL DAILY. Start taking the following new medications: HEPARIN SODIUM,PORCINE (HEPARIN SOD 1ML) 5,000 U NIT/ML VIAL 5,000 UNIT SUBCUTANEOUS EVERY 12 HOURS. Days = 30 Qty = 60 No Refills METOPROLOL TARTRATE (LOPRESSOR) 25 MG TAB 25 MILLIGRAM ORAL EVERY 12 HOURS. Days = 30 Qty = 60 Refills = 3 MEROPENEM (MERREM) 500 MG VIAL 500 MILLIGRAM INTRAVENOUS EVERY 6 HOURS. Days = 14 No Refills Objective VS/I O Last Documented: Result Date Time Pulse Ox 100 11/02 715 B/P 115/65 11/02 715 B/P Mean 81.8 11/02 715 O2 Delivery Room air 11/02 715 Temp 98.2 11/02 715 Pulse 91 11/02 715 Resp 16 11/02 715 24 hour I O ending at 0700: 11/01 1900 Intake Total Output Total 250 Balance -250 Output, Urine 250 General appearance: chronically ill appearing, o bese, alert, awake Neck: no JVD, HAS A SHORT [place]LS[place] Cardiovascular: normal heart sounds, regular rat e rhythm Respiratory: aerating well, clear to auscultatio n Abdomen: non-tender, normal bowel sounds, soft, no distention Extremities: no edema Musculoskeletal: PARAPLEGIA WITH MUSCLE ATROPHY 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, oriented X 3, normal speech, P ARAPLEGIA Considered stroke alert: no Skin: dry Wound/incision: Location: WOUND VAC IN PLACE Ulcer: Type/cause: pressure Duration: chronic Location: sacral region Stage: 4 Gangrene present: no Psychiatry: normal affect, normal judgment/insig ht Results Findings/Data: Laboratory Tests: 10/31 1710 Chemistry Sodium (134 - 147 mEq/L) 135 Potassium (3.4 - 5.0 mEq/L) 3.6 Chloride (100 - 108 mEq/L) 105 Carbon Dioxide (21 - 33 mEq/l) 21 Anion Gap (0 - 20) 12 BUN (7 - 18 mg/dL) 33 H Creatinine (0.6 - 1.3 mg/dL) 1.4 H Glomerular Filtr Rate (105 - 110) 66.8 L Glucose (70 - 110 mg/dL) 75 Calcium (8.0 - 10.5 mg/dL) 9.1 Ionized Calcium Denise (1.09 - 1.30 MMOL/L) 1.15 Discharge Instructions PCP PCP follow-up: PCP: No Primary or Family Physician Discharge to: Long Term Facility Additional Discharge Routines: PCP Follow-Up, Co nsultant Follow-Up, Wound/ Dressing Care, Add. instructions Diet: Low Sodium Activity: As Tolerated Wound/dressing care: ANY WOUND CARE OR WOUND VAC INSTRUCTIONS PER DR. NOLAND. Additional instructions: WOUND CARE PER WC INSTRUCTIONS Follow-up Appointments PCP follow-up: PCP: No Primary or Family Physician PCP follow up timeframe: In 1-2 weeks Special instructions: ANY WOUND CARE INSTRUCTIONS PER DR. NOLAND. Consulting provider 1: Provider 1: Tom Elder MD Specialty: Infectious Disease Consult follow up timeframe: In 2-3 weeks Consulting provider 2: Provider 2: Tylor Noland MD Specialty: Internal Medicine Follow up timeframe: In 2-3 weeks Quality: Discharge Advanced Care Plan 65 or Older Discussed with: patient Electronically Signed by Reed Lizama MD on 11/01 at 1201 Addendum 1: 11/02/22 0941 by Reed Lizama MD HE'S TOLERATING DIET, HAS MILD NAUSEA. PVR WAS 4 4ML, PER ID CT WITH BLADDER DIVERTICULUM. D/C DATE IS NOW 11/02/22. Electronically Signed by Reed Lizama MD on 11/02 at 0942 RPT #:[id number] END OF REPORT 2022-11-01 11:12:00-00:00 [facility] REPORT#:[id number] REPORT STATUS: Signed DATE:11/01/22 TIME: 1112 PATIENT: JORGE GOINS UNIT #: [id number] ROOM/BED: [place] [address] : 86 AGE: 37 SEX: M ATTEND: Reed Lizama MD ADM AUTHOR: Giovani Khanna * ALL edits or amendments must be made on the rimidi/computer document * Giovani Khanna 11/01/22 1112: Subjective Comments: no vomiting. less abdominal discomfort. no nause a. Review of Systems Additional notes: 10 point ros neg except hpi Objective General VS/I O: Last Documented: Result Date Time Pulse Ox 100 11/02 715 B/P 115/65 11/02 715 B/P Mean 81.8 11/02 715 O2 Delivery Room air 11/02 715 Temp 98.2 11/02 715 Pulse 91 11/02 715 Resp 16 11/02 715 24 hour I O ending at 0700: 11/01 0700 10/31 1900 Intake Total Output Total 250 Balance -250 Output, Urine 250 PATIENT WEIGHT: Weight (lb): Weight (oz): Weight (kg): 100.000 Medications: Active Meds + DC'd Last 24 Hrs Sodium Chloride (SODIUM CHLORIDE 0.9%) 1,000 ML .Q10H IV (DC) Methylnaltrexone Stickney (RELISTOR 12MG VIAL) 12 MG Q48H SUBQ Hydrocodone Bitart/Acetaminophen (NORCO 5/325) 1 TAB Q6H PRN PRN PO Morphine Sulfate (morphine SULFATE) 4 MG Q4H PRN PRN IV Calcium Carbonate (TUMS CHEW TAB) 1,000 MG Q2H P RN PRN PO Metoprolol Tartrate (LOPRESSOR) 25 MG Q12HR PO Metoclopramide HCl (REGLAN) 5 MG Q8H PRN PRN IV Sodium Chloride (SODIUM CHLORIDE) 10 ML BID IV ( DC) Meropenem (MEROPENEM) 500 MG Q6H IV Sterile Water (WATER FOR INJECTION) 10 ML Sodium Chloride (SODIUM CHLORIDE) 10 ML ASDIR ND N IV (DC) Potassium Chloride (POTASSIUM CHLORIDE 20MEQ TAB .ER) 40 MEQ DAILY PRN PRN PO Heparin Sodium (HEPARIN 5000 UNITS/ML) 5,000 UNI T Q12HR SUBQ Acetaminophen (TYLENOL) 650 MG Q4H PRN PRN PO Ondansetron HCl (ZOFRAN) 4 MG Q4H PRN PRN IV Temazepam (RESTORIL) 15 MG BEDTIME PRN PRN PO Dietitian nutrition assessment The data set between the solid lines has been im ported from the dietitian's assessment. BMI Calculated: 30.7 Nutrition related diagnosis: Nutrition diagnosis details: Nutrition problem: Increased nutrient needs Nutrition etiology: WOUNDS Nutrition signs and symptoms: WOUND VAC IN PLACE Nutrition prescription: 1. A DD ENSURE CLEAR TID 2. ADVANCE DIET TOLERATED TO REGULAR, HIGH PROTEIN Dietitian name: Jagdish Villa, DIET Assessment completed: 11/01/22 Physical Exam General appearance: alert, awake HEENT: abnl conjunctiva/sclera, dry mucosal memb ranes Neck: decreased range of motion Cardiovascular: normal capillary refill, regular rate rhythm Respiratory: aerating well, symmetric expansion Abdomen: non-tender Extremities: decreased range of motion Musculoskeletal: decreased ROM 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, oriented X 3 Considered stroke alert: no Skin: abnormal color, abnormal temperature Ulcer: Type/cause: pressure Duration: chronic Location: sacral region Stage: 4 Gangrene present: no Psychiatry: normal affect, normal judgment/insig ht Results Findings/Data: Laboratory Tests 10/31/22 171: [Embedded Image Not Available] Laboratory Tests 10/31 1709 Chemistry Sodium (134 - 147 mEq/L) 135 Potassium (3.4 - 5.0 mEq/L) 3.6 Chloride (100 - 108 mEq/L) 105 Carbon Dioxide (21 - 33 mEq/l) 21 Anion Gap (0 - 20) 12 BUN (7 - 18 mg/dL) 33 H Creatinine (0.6 - 1.3 mg/dL) 1.4 H Glomerular Filtr Rate (105 - 110) 66.8 L Glucose (70 - 110 mg/dL) 75 Calcium (8.0 - 10.5 mg/dL) 9.1 Ionized Calcium Denise (1.09 - 1.30 MMOL/L) 1.15 Diagnosis, Assessment Plan Free Text A P: nausea, vomiting abnormal ct ? colitis anemia, nos - c/w empiric abx - agree with surgical recommendations - pain/emesis control - relistor qOD - monitor h/h, transfuse as needed - monitor bowel function Consultants: infectious disease, surgery Festus Spears 11/02/22 1433: Attestations Physician Attestation Agree w/findings plan: Agree with the findings and plan as documented martin y Jey KNOTT; Electronically Signed by Giovani Khanna on at 1259 Electronically Signed by Festus Spears MD on 11/02 at 1433 RPT #:[id number] END OF REPORT 2022-11-01 08:35:00-00:00 [facility]) Infectious Dis. Progress Note REPORT#:[id number] REPORT STATUS: Signed DATE:11/01/22 TIME: 834 PATIENT: JORGE GOINS UNIT #: [id number] ROOM/BED: [place] [address] : 86 AGE: 37 SEX: M ATTEND: Reed Lizama MD ADM AUTHOR: Isaías Vizcarra NP * ALL edits or amendments must be made on the rimidi/computer document * Subjective Chief complaint: F/U Bacteremia Patient reports: Yes: complaints, feeling better, nausea. No: abd ominal pain, back pain, bowel movement, burning with urination, cough, diarrhea, fever, headache, pain, pain controlled, shortness of breath, vomiting, wheez ing. Nursing reports: No: complaints. Review of Systems All systems rev neg: except as marked Objective General VS/I O: Vital Signs Date Temp Pulse Resp B/P B/P Mean Pulse Ox FiO2 10/31-11/01 97.5-98.2 91-106 14-18 105-138/65-91 81.6-106.9 95-100 Last Documented: Result Date Time Pulse Ox 100 11/01 0616 B/P 115/65 11/01 0716 B/P Mean 81.8 11/01 0716 O2 Delivery Room air 11/02 715 Temp 98.2 11/02 715 Pulse 91 11/02 715 Resp 16 11/02 715 Vital Signs: Date Time Temp Pulse Resp B/P B/P Pulse O2 O2 Flow FiO2 Mean Ox Delivery Rate 11/02 715 98.2 91 16 115/65 81.8 100 Room air 11/01 0309 97.9 92 18 105/70 81.6 100 11/01 0000 98.0 98 18 127/79 95 99 10/31 1843 98.1 98 14 138/91 106.9 100 Room air 10/31 1611 98.2 94 16 113/77 89.3 100 Room air 10/31 1103 97.5 103 16 137/81 100.0 95 Room air 10/31 0846 97.7 106 16 126/82 96.5 99 Room air 24 hour I O ending at 0700: 11/01 0710/31 1900 Intake Total Output Total 250 Balance -250 Output, Urine 250 PATIENT WEIGHT: Weight (lb): Weight (oz): Weight (kg): 100.000 Physical Exam General appearance: alert, awake, oriented Wound/incision: Location: Sacral ulcer (+) Vac Head/Eyes: atraumatic, normocephalic Neck: supple/no meningismus, no JVD Cardiovascular: normal heart sounds, regular rat e rhythm, no murmur Respiratory: clear to auscultation, aerating wel l, symmetric expansion Abdomen: distended, normal bowel sounds, soft, r ectal tube Genitourinary: urinary catheter (condom cath) Extremities: no cyanosis, no edema 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, oriented X 3, paraplegia Considered stroke alert: no Skin: dry, no rash Results Findings/Data: Laboratory Tests 10/31 1709 Chemistry Sodium (134 - 147 mEq/L) 135 Potassium (3.4 - 5.0 mEq/L) 3.6 Chloride (100 - 108 mEq/L) 105 Carbon Dioxide (21 - 33 mEq/l) 21 Anion Gap (0 - 20) 12 BUN (7 - 18 mg/dL) 33 H Creatinine (0.6 - 1.3 mg/dL) 1.4 H Glomerular Filtr Rate (105 - 110) 66.8 L Glucose (70 - 110 mg/dL) 75 Calcium (8.0 - 10.5 mg/dL) 9.1 Ionized Calcium Denise (1.09 - 1.30 MMOL/L) 1.15 Radiology data: Recent Impressions: RADIOLOGY - XR ABDOMEN 2V 10/31 1007 Report Impression - Status: SIGNED Entered: 10/31/2022 1107 IMPRESSION: 1. Suggestion of a partial small bowel obstructi on, stable to slightly improved Impression By: [email or web address] - Sebastián Colon M.D. Results: labs reviewed, vital signs reviewed, vi josseline signs stable, current med profile rev'd Diagnosis, Assessment Plan Free Text A P: Assessment: Mr. 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 Patient self catheterizes himself. He also developed a sacral decub ulcer around 2 years ag o, which seems to be slowly healing. [facility] and came to the ED with nausea, vomiting , fever, chills. Fever was up to 103 F reportedl y. Here, x-ray of the abdomen shows small bowel obs tructive gas pattern. Patient has been evaluated by general surgery. N o surgical interventions currently recommended. Infectious disease consultation is requested for sacral decub ulcer. He is found to have ESBL E coli bacteremia. *Severe Sepsis, resolving -Tachycardia and tachypnea -JENNIFER -Source: Bacteremia *Bacteremia, Ecoli ESBL -Suspect source of bacteremia is urinary tract. Patient self catheterizes himself, given history of neurogenic bladder. -GI source, given presentation with SBO, is anot her possibility. *PSBO -General Surgery following *Sacral decub ulcer -Sacral decub ulcers seem to be healing, without obvious signs of infection. *Paraplegia *JENNIFER *Metabolic acidosis *UTI Plan: -On Merrem, plan x 2 weeks with a stop date of 0 11/09 -CT reviewed personally (+) bladder diverticulum ; with fluid collection near bladder -Check bladder US and PVR; one entry from bennett grimm documented with 44ml, pt states that was post void Midline if ok with renal Electronically Signed by Isaías Vizcarra NP on at 1321 Electronically Signed by Tom Elder MD on at 3114 RPT #:[id number] END OF REPORT 2022-10-31 19:49:00-00:00 [id number] [address] PATIENT NAME: JORGE GOINS ADMIT DATE: 10/24 ACCOUNT NO: [id number] ROOM NO: 6609 AGE: 37 REPORT TYPE: PROGRESS NOTE SEX: M ADMITTING PHYSICIAN:Reed Lizama MD ATTENDING PHYSICIAN:Reed Lizama MD DATE: 10/31/2022 SUBJECTIVE: Events noted. OBJECTIVE: VITAL SIGNS: Afebrile, pulse 90, respiratory rat e 14, blood pressure NECK: Supple. CHEST: Clear. HEART: Normal. SKIN: Examination of wound on the bottom, wound VAC applied. Periwound healthy. No masses. No sign of infection. Left g luteal wound size decreased. No maceration. Odor not present. No sign of infe ction. LABORATORY DATA: Showing sodium 135, potassium 3 .6, chloride 105, CO2 of 21, creatinine 1.4. WBC and platelets are 240. IMPRESSION: Bottom wound. RECOMMENDATIONS: Continue wound VAC, change it M on, Monday and Monday. Nutritional support. Dictated By: Tylor Noland MD Date Dictated: 10/31/2022 19:49:22 Date Transcribed: 10/31/2022 20:28:48 ONDINA/MARIANNE/DONNA/NAG Receipt ID: [id number] Authenticated and Edited by Tylor Noland MD On 11/01/22 7:17:15 PM Electronically Signed by Tylor Noland MD on 03/18 at 0719 PATIENT NAME: JORGE GOINS [id number] 15:47:00-00:00 [facility] ([facility]) Nephrology Progress Note REPORT#:[id number] REPORT STATUS: Signed DATE:10/31/22 TIME: 1546 PATIENT: JORGE GOINS UNIT #: [id number] ROOM/BED: 6609-1 : 86 AGE: 37 SEX: M ATTEND: Reed Lizama MD ADM AUTHOR: Patrica Caraballo MD * ALL edits or amendments must be made on the rimidi/computer document * Subjective Chief complaint: Nausea/vomiting. 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 He was seen in ER. 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 He denied any recent hematuria or dysuri a or any other systemic complaints. he also denied any orthopnea, cramping, itching, ch patrick of taste, involuntary movements. He denied chronic use of NSAIDs. 10/30 Patient feeling better but still oral intake low . Objective General VS/I O: Vital Signs: Date Time Temp Pulse Resp B/P B/P Pulse O2 O2 F low FiO2 Mean Ox Delivery Rate 11/01 0716 36.8 91 16 115/65 81.8 100 Room air 11/01 0309 36.6 92 18 105/70 81.6 100 / 0000 36.7 98 18 127/79 95 99 / 1843 36.7 98 14 138/91 106.9 100 Room air 10/31 1611 36.8 94 16 113/77 89.3 100 Room air 24 hour I O ending at 0700: 11/01 0700 10/31 1900 Intake Total Output Total 250 Balance -250 Output, Urine 250 PATIENT WEIGHT: Weight (lb): Weight (oz): Weight (kg): 100.000 Physical Exam General appearance: alert, awake, oriented Head/eyes: atraumatic, EOMI ENT: moist mucous membranes, normal nose Neck: no JVD, no lymphadenopathy Cardiovascular: normal heart sounds, regular rat e and rhythm Respiratory: aerating well, clear to auscultatio n Abdomen: soft, no distention Genitourinary: no bladder distention, no flank p ain Extremities: no edema, no gangrene, no swelling Considered stroke alert: no Ulcer: Type/cause: pressure Duration: chronic Location: sacral region Stage: 4 Gangrene present: no Diagnosis, Assessment Plan Free Text A P: 7-year-old male with known to have paraplegia dawood corcorang in detention after he had fentanyl poisoning 3 years ago presenting wi th nausea, vomiting, diarrhea and abdominal pain. He was seen in ER. 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 He denied any recent hematuria or dysuri a or any other systemic complaints. he also denied any orthopnea, cramping, itching, ch patrick of taste, involuntary movements. He denied chronic use of NSAIDs. Neph rology following for: 1. JENNIFER or JENNIFER on CKD. We do not have previous la bs to see if he has prior history of kidney disease from his urina ry retention. Plan is to monitor renal function closely. Keep mean arterial pressure ab ove 65 and avoid nephrotoxic agents. Plan is to follow renal ultrasound. 2. Metabolic acidosis: Most likely secondary to poor renal function. Plan is to change IV fluids from normal saline to IV bic arb. Plan is to monitor closely. 3. Hypovolemia: Plan is to monitor input and out put closely with low-dose IV fluids. 4. Urinary tract infection: Plan is to continue IV antibiotics and monitor renal dosing. 5. Hypocalcemia: Most likely secondary to inflam mation. Plan is to monitor ionized calcium and give calcium IV if low. 10/26 1. JENNIFER or JENNIFER on CKD. We do not have previous la bs to see if he has prior history of kidney disease from his urina ry retention. Plan is to monitor renal function closely. Keep mean arterial pressure ab ove 65 and avoid nephrotoxic agents. Renal ultrasound shows mild hydronephros is on the right side. Renal function stable 2. Metabolic acidosis: Most likely secondary to poor renal function. Plan is to change IV fluids from normal saline to IV bic arb. Plan is to monitor closely. 3. Hypovolemia: Plan is to monitor input and out put closely with low-dose IV fluids. 4. Urinary tract infection: Plan is to continue IV antibiotics and monitor renal dosing. 5. Hypocalcemia: Most likely secondary to inflam mation. Plan is to monitor ionized calcium and give calcium IV if low. 6. Hypokalemia: Plan to monitor and replace as n eeded. 10/27 1. JENNIFER or JENNIFER on CKD. We do not have previous la bs to see if he has prior history of kidney disease from his urina ry retention. Plan is to monitor renal function closely. Keep mean arterial pressure ab ove 65 and avoid nephrotoxic agents. Renal ultrasound shows mild hydronephros is on the right side. Renal function stable 2. Metabolic acidosis: Most likely secondary to poor renal function. patient given IV bicarb, plan to follow labs to see if f urther needed. 3. Hypovolemia: Plan is to monitor input and out put closely with low-dose IV fluids. 4. Urinary tract infection: Plan is to continue IV antibiotics and monitor renal dosing. 5. Hypocalcemia: Most likely secondary to inflam mation. Plan is to monitor ionized calcium and give calcium IV if low. 6. Hypokalemia: Plan to monitor and replace as n eeded. 10/29 1. JENNIFER or JENNIFER on CKD. We do not have previous la bs to see if he has prior history of kidney disease from his urina ry retention. Plan is to monitor renal function closely. Keep mean arterial pressure ab ove 65 and avoid nephrotoxic agents. Renal ultrasound shows mild hydronephros is on the right side. Renal function stable 2. Metabolic acidosis: Most likely secondary to poor renal function. patient given IV bicarb, plan to follow labs to see if f urther needed. Metabolic acidosis improving. 3. Hypovolemia: Plan is to monitor input and out put closely with low-dose IV fluids. 4. Urinary tract infection: Plan is to continue IV antibiotics and monitor renal dosing. 5. Hypocalcemia: Most likely secondary to inflam mation. Plan is to monitor ionized calcium and give calcium IV if low. 6. Hypokalemia: Plan to monitor and replace as n eeded 10/31 1. JENNIFER or JENNIFER on CKD. We do not have previous la bs to see if he has prior history of kidney disease from his urina ry retention. Plan is to monitor renal function closely. Keep mean arterial pressure ab ove 65 and avoid nephrotoxic agents. Renal ultrasound shows mild hydronephros is on the right side. Renal function stable 2. Metabolic acidosis: Most likely secondary to poor renal function. patient given IV bicarb, plan to follow labs to see if f urther needed. Metabolic acidosis resolved. 3. Hypovolemia: Plan is to monitor input and out put closely with low-dose IV fluids. Resolved. 4. Urinary tract infection: Plan is to continue IV antibiotics and monitor renal dosing. 5. Hypocalcemia: Most likely secondary to inflam mation. Plan is to monitor ionized calcium and give calcium IV if low. 6. Hypokalemia: Plan to monitor and replace as n eeded Consultants: infectious disease, surgery Electronically Signed by Patrica Caraballo MD on at 1535 RPT #:[id number] END OF REPORT 2022-10-31 13:31:00-00:00 [facility] ([facility]) Gastroenterology Progress Note REPORT#:[id number] REPORT STATUS: Signed DATE:10/31/22 TIME: 133 PATIENT: JORGE GOINS UNIT #: [id number] ROOM/BED: [place] [address] : 86 AGE: 37 SEX: M ATTEND: Reed Lizama MD ADM AUTHOR: Giovani Khanna * ALL edits or amendments must be made on the rimidi/computer document * Giovani Khanna 10/31/22 1331: Subjective Comments: reports some abdominal disco mfort/bloating. passing flatus. says he had a small BM last night Review of Systems Additional notes: 10 point ros neg except hpi Objective General VS/I O: Last Documented: Result Date Time Pulse Ox 95 10/31 1103 B/P 137/81 10/31 1103 B/P Mean 100.0 10/31 1103 O2 Delivery Room air 10/31 1103 Temp 97.5 10/31 1103 Pulse 103 10/31 1103 Resp 16 10/31 1103 24 hour I O ending at 0700: 08 0700 07 1900 Intake Total 295.00 Output Total 150 Balance 145.00 Intake, IV 45.00 Intake, Oral 250 Number 0 Bowel Movements Output, Urine 150 PATIENT WEIGHT: Weight (lb): Weight (oz): Weight (kg): 100.000 Medications: Active Meds + DC'd Last 24 Hrs Sodium Chloride (SODIUM CHLORIDE 0.9%) 1,000 ML .Q10H IV Methylnaltrexone Stickney (RELISTOR 12MG VIAL) 12 MG Q48H SUBQ Hydrocodone Bitart/Acetaminophen (NORCO 5/325) 1 TAB Q6H PRN PRN PO Morphine Sulfate (morphine SULFATE) 4 MG Q4H PRN PRN IV Calcium Carbonate (TUMS CHEW TAB) 1,000 MG Q2H P RN PRN PO Metoprolol Tartrate (LOPRESSOR) 25 MG Q12HR PO Metoclopramide HCl (REGLAN) 5 MG Q8H PRN PRN IV Sodium Chloride (SODIUM CHLORIDE) 10 ML BID IV Meropenem (MEROPENEM) 500 MG Q6H IV Sterile Water (WATER FOR INJECTION) 10 ML Sodium Chloride (SODIUM CHLORIDE) 10 ML ASDIR ND N IV Potassium Chloride (POTASSIUM CHLORIDE 20MEQ TAB .ER) 40 MEQ DAILY PRN PRN PO Heparin Sodium (HEPARIN 5000 UNITS/ML) 5,000 UNI T Q12HR SUBQ Acetaminophen (TYLENOL) 650 MG Q4H PRN PRN PO Ondansetron HCl (ZOFRAN) 4 MG Q4H PRN PRN IV Temazepam (RESTORIL) 15 MG BEDTIME PRN PRN PO Physical Exam General appearance: alert, awake HEENT: abnl conjunctiva/sclera, dry mucosal memb ranes Neck: decreased range of motion Cardiovascular: normal capillary refill, regular rate rhythm Respiratory: aerating well, symmetric expansion Abdomen: non-tender Extremities: decreased range of motion Musculoskeletal: decreased ROM 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, oriented X 3 Considered stroke alert: no Skin: abnormal color, abnormal temperature Ulcer: Type/cause: pressure Duration: chronic Location: sacral region Stage: 4 Gangrene present: no Psychiatry: normal affect, normal judgment/insig ht Results Radiology Data: Recent Impressions: RADIOLOGY - XR ABDOMEN 2V 10/31 1007 Report Impression - Status: SIGNED Entered: 10/31/2022 1107 IMPRESSION: 1. Suggestion of a partial small bowel obstructi on, stable to slightly improved Impression By: [email or web address] - Sebastián Colon M.D. Diagnosis, Assessment Plan Free Text A P: nausea, vomiting abnormal ct ? colitis anemia, nos - c/w empiric abx - agree with surgical recommendations - pain/emesis control - relistor qOD - monitor h/h, transfuse as needed - monitor bowel function Consultants: infectious disease, surgery Festus Spears 11/02/22 1433: Attestations Physician Attestation Agree w/findings plan: Agree with the findings and plan as documented Jessica KNOTT; Electronically Signed by Giovani Khanna on at 1444 Electronically Signed by Festus Spears MD on 11/02 at 1433 RPT #:[id number] END OF REPORT 2022-10-31 10:23:00-00:00 [facility] ([facility]) Hospitalist Progress Note REPORT#:[id number] REPORT STATUS: Signed DATE:10/31/22 TIME: 1023 PATIENT: JORGE GOINS UNIT #: [id number] ROOM/BED: [place] [address] : 86 AGE: 37 SEX: M ATTEND: Reed Lizama MD ADM AUTHOR: Reed Lizama MD * ALL edits or amendments must be made on the rimidi/computer document * Subjective Chief complaint: N EAT, HAD GOOD BM, INFORMED OF PLAN FOR SNF TX ONCE CLEARED BY ID/WC HPI: Patient reports not much change overnight, stephanie nues to have back pain and shoulder pains, liquid stools. No overnight even t noted. Plan to challenge oral diet, on clears today. Objective General VS/I O: Vital Signs: Date Time Temp Pulse Resp B/P B/P Pulse O2 O2 F low FiO2 Mean Ox Delivery Rate 11/01 0746 97.7 106 16 126/82 96.5 99 Room air 10/31 0520 98.1 89 15 128/55 79.2 100 Room air 10/31 0128 90 115/69 84.4 10/31 0119 98.4 94 14 90/60 70.5 99 Room air 10/30 2229 112 117/77 90.5 10/30 2119 97.9 98 15 132/82 98.8 100 Room air 10/30 1707 97.5 100 15 122/92 0.0 100 10/30 1132 97.7 97 13 115/59 0.0 100 24 hour I O ending at 0700: 10/31 0700 10/30 1900 Intake Total 295.00 Output Total 150 Balance 145.00 Intake, IV 45.00 Intake, Oral 250 Number 0 Bowel Movements Output, Urine 150 PATIENT WEIGHT: Weight (lb): Weight (oz): Weight (kg): 100.000 Medications: Active Meds + DC'd Last 24 Hrs Sodium Chloride (SODIUM CHLORIDE 0.9%) 1,000 ML .Q10H IV Methylnaltrexone Stickney (RELISTOR 12MG VIAL) 12 MG Q48H SUBQ Hydrocodone Bitart/Acetaminophen (NORCO 5/325) 1 TAB Q6H PRN PRN PO Morphine Sulfate (morphine SULFATE) 4 MG Q4H PRN PRN IV Calcium Carbonate (TUMS CHEW TAB) 1,000 MG Q2H P RN PRN PO Metoprolol Tartrate (LOPRESSOR) 25 MG Q12HR PO Metoclopramide HCl (REGLAN) 5 MG Q8H PRN PRN IV Sodium Chloride (SODIUM CHLORIDE) 10 ML BID IV Meropenem (MEROPENEM) 500 MG Q6H IV Sterile Water (WATER FOR INJECTION) 10 ML Sodium Chloride (SODIUM CHLORIDE) 10 ML ASDIR ND N IV Potassium Chloride (POTASSIUM CHLORIDE 20MEQ TAB .ER) 40 MEQ DAILY PRN PRN PO Heparin Sodium (HEPARIN 5000 UNITS/ML) 5,000 UNI T Q12HR SUBQ Acetaminophen (TYLENOL) 650 MG Q4H PRN PRN PO Ondansetron HCl (ZOFRAN) 4 MG Q4H PRN PRN IV Temazepam (RESTORIL) 15 MG BEDTIME PRN PRN PO Physical Exam General appearance: chronically ill appearing, a lert, awake, oriented Neck: no JVD, HAS A SHORT CARLSON Cardiovascular: normal heart sounds, regular rat e rhythm Respiratory: aerating well, clear to auscultatio n Abdomen: non-tender, normal bowel sounds, soft, no distention Extremities: no edema Musculoskeletal: PARAPLEGIA WITH MUSCLE ATROPHY 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, oriented X 3, normal speech, P ARAPLEGIA Considered stroke alert: no Skin: dry Wound/incision: Location: WOUND VAC IN PLACE Ulcer: Type/cause: pressure Duration: chronic Location: sacral region Stage: 4 Gangrene present: no Psychiatry: normal affect, normal judgment/insig ht Results Findings/Data: Laboratory Tests 10/30 1316 Chemistry C-Reactive Protein (<10.0 mg/L) 161.0 H Laboratory Tests 10/30 1316 Hematology ESR Westergren (0 - 15 mm/hr) 101 H Diagnosis, Assessment Plan Consultants: infectious disease, surgery Free Text DxA P Notes Free text DxA P notes: 37-year-old, with history of fentanyl OD, cardia c arrest, paraplegia, and ascending thoracic aneurysm repair, neurogenic b ladder, and chronic sacral decubitus ulcer is admitted with SBO, and UTI. Urinary tract infection WITH BACTEREMIA WITH E.C STEWART/ESBL - NOW ON MERREM,OFF VANC, ID SEEN, X 14 DAYS UNTIL 11/09/22, S/P PICC , PLAN FOR SNF TX, STILL HIGH ESR/CRP ILEUS VS pSBO, Noted on REPEAT CT ABD - IMPROVED , GOOD BM, GS SEEN, REPEAT CT ABD NOTED, advance diet NOW General surgery consulted, and evaluated patien t, had large bowel movement during eval. RXT COLITIS ON CT ABD TO UTI - ASK GI TO EVAL, G ET ESR/CRP Chronic sacral decubitus ulc er - NOW ON WOUND VAC, WC SEEN, TX TO SNF IN [facility] TO ARRANGE ARF (PRERENAL) on CRF - BETTER, FROM 3.2 TO 2.4, 1.4 NOW, OFF ARB/CECI, RENAL SEEN H/O Paraplegia FROM CARDIAC ARREST OR FROM THORA CIC SURGERY - STABLE H/O Neurogenic bladder - ON SELF CATH AT HOME, W ITH COMPLICATION OF UTI DVT PX - Continue Heparin Code Full Electronically Signed by Reed Lizama MD on 10/31 at 1029 RPT #:[id number] END OF REPORT 2022-10-31 10:12:00-00:00 [facility] General Surgery Progress Note REPORT#:[id number] REPORT STATUS: Signed DATE:10/31/22 TIME: 1012 PATIENT: JORGE GOINS UNIT #: [id number] ROOM/BED: 6609-1 : 86 AGE: 37 SEX: M ATTEND: Reed Lizama MD ADM AUTHOR: Justina Klein MD * ALL edits or amendments must be made on the el [employer]/computer document * Subjective Chief complaint: SBO, Sacral decubitus HPI: Doing ok. -BM. Patient reports: Yes: feeling better, nausea, tolerating diet. No : complaints, abdominal pain, ambulating, bowel movement, chest pain, constipation, diarrhea, fever, flatus, incisional pain, pain, pain controlled, shortnes s of breath, vomiting. Review of Systems Constitutional: malaise. Denies: chills, fat igue, fever, generalized weakness, lethargy, recent wt loss, other. Skin: Denies: abrasion, bruising, contusion, diaphores is, ecchymosis, itching, laceration, rash, swelling, other. Allergy/Immun: Denies: allergic reaction, anaphylaxis, hives, i tching, rhinorrhea, sneezing, other. Eyes: Denies: redness, discharge, visual loss/blurred, itching, diplopia, eye pain, photophobia, swelling, other. ENT: Denies: ear drainage, ear ringing, earache, hear ing loss, mouth pain, nasal congestion, nose bleeding, sinus problem, sore t hroat, throat pain, throat swelling, tongue pain, tongue swelling, toothach e, voice change, other. Respiratory: Denies: COATES (dyspnea on exertion), hemoptysis, n on productive cough, parox nocturnal dyspnea, pleurisy, pleuritic pain, pneumonia, productive cough (sputum ), SOB, wheezing, other. Cardiovascular: Denies: chest pain, COATES (dyspnea on exer tion), edema, orthopnea, palpitations, parox nocturnal dyspnea, other. GI: Reports: constipation, nausea. Denies: abdominal pain, anorexia, diarrhea, dysphagia, GERD, hematemesis , hematochezia, hiatal hernia, melena, rectal pain, vomiting, other. : Denies: dysuria, flank pain, frequency, hematuria, nocturia, penile discharge, penile lesion, testicular pa in, testicular swelling, urgency, urinary retention, other. Musculoskeletal: Denies: arthritis, extremity pain, extremity swe lling, joint pain, joint swelling, lumbar pain, myalgias, neck pain, thor acic pain, other. Objective General VS/I O: Last Documented: Result Date Time Pulse Ox 99 10/31 845 B/P 126/82 10/31 845 B/P Mean 96.5 10/31 845 O2 Delivery Room air 10/31 845 Temp 97.7 10/31 845 Pulse 106 10/31 845 Resp 16 10/31 845 Vital Signs Date Temp Pulse Resp B/P B/P Mean Pulse Ox FiO2 10/30-10/31 97.5-98.4 89-112 13-16 90-132/55-92 0.0-98.8 99-100 24 hour I O ending at 0700: 10/31 0700 10/30 1900 Intake Total 295.00 Output Total 150 Balance 145.00 Intake, IV 45.00 Intake, Oral 250 Number 0 Bowel Movements Output, Urine 150 PATIENT WEIGHT: Weight (lb): Weight (oz): Weight (kg): 100.000 Medications: Active Meds + DC'd Last 24 Hrs Sodium Chloride (SODIUM CHLORIDE 0.9%) 1,000 ML .Q10H IV (UNV) Methylnaltrexone Stickney (RELISTOR 12MG VIAL) 12 MG Q48H SUBQ Hydrocodone Bitart/Acetaminophen (NORCO 5/325) 1 TAB Q6H PRN PRN PO Morphine Sulfate (morphine SULFATE) 4 MG Q4H PRN PRN IV Calcium Carbonate (TUMS CHEW TAB) 1,000 MG Q2H P RN PRN PO Metoprolol Tartrate (LOPRESSOR) 25 MG Q12HR PO Metoclopramide HCl (REGLAN) 5 MG Q8H PRN PRN IV Sodium Chloride (SODIUM CHLORIDE) 10 ML BID IV Meropenem (MEROPENEM) 500 MG Q6H IV Sterile Water (WATER FOR INJECTION) 10 ML Sodium Chloride (SODIUM CHLORIDE) 10 ML ASDIR ND N IV Potassium Chloride (POTASSIUM CHLORIDE 20MEQ TAB .ER) 40 MEQ DAILY PRN PRN PO Heparin Sodium (HEPARIN 5000 UNITS/ML) 5,000 UNI T Q12HR SUBQ Acetaminophen (TYLENOL) 650 MG Q4H PRN PRN PO Ondansetron HCl (ZOFRAN) 4 MG Q4H PRN PRN IV Temazepam (RESTORIL) 15 MG BEDTIME PRN PRN PO Nutrtion assessment: The data set between the solid lines has been im ported from the dietitian's assessment. BMI Calculated: 30.7 Nutrition related diagnosis: Nutrition diagnosis details: Nutrition problem: Increased nutrient needs Nutrition etiology: WOUNDS Nutrition signs and symptoms: WOUND VAC IN PLACE Nutrition prescription: 1. A DD ENSURE CLEAR TID 2. ADVANCE DIET TOLERATED TO REGULAR, HIGH PROTEIN Dietitian name: Sun Vazquez RD, LD Assessment completed: 10/27/22 Physical Exam General appearance: alert, awake, oriented, no a cute distress, pleasant, conversational, mental status normal, no respira tory distress Wound/incision: Location: sacral Site condition: granulating HEENT: atraumatic, normocephalic Neck: supple/no meningismus Cardiovascular: tachycardia, regular rate and rh ythm Chest: normal appearance Respiratory: aerating well Abdomen: distended, non-tender, soft, no guardin g Rectal: rectal tube in place with no stool Extremities: normal temperature 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, oriented x 3, CNII-XII intact, normal speech Considered stroke alert: no Skin: normal color, normal temperature, normal t urgor Ulcer: Type/cause: pressure Duration: chronic Location: sacral region Stage: 4 Gangrene present: no Psychiatry: normal affect, normal judgment/insig ht, normal mood Results Findings/Data: Laboratory Tests 10/30 1316 Chemistry C-Reactive Protein (<10.0 mg/L) 161.0 H Laboratory Tests 10/30 1316 Hematology ESR Westergren (0 - 15 mm/hr) 101 H Diagnosis, Assessment Plan Problem List/A P: 1. Ileus Free Text A P: Doing ok. Awaiting bowel function return. Will s tart IVFs. at 1016 RPT #:[id number] END OF REPORT 2022-10-31 08:41:00-00:00 [facility] ([facility]) Infectious Dis. Progress Note REPORT#:[id number] REPORT STATUS: Signed DATE:10/31/22 TIME: 840 PATIENT: JORGE GOINS UNIT #: [id number] ROOM/BED: 6609-1 : 86 AGE: 37 SEX: M ATTEND: Reed Lizama MD ADM AUTHOR: Isaías Vizcarra NP * ALL edits or amendments must be made on the rimidi/computer document * Subjective Chief complaint: F/U Bacteremia Patient reports: Yes: feeling better. No: com plaints, abdominal pain, back pain, bowel movement, burning with urination, cough, diarrhea, fever, headache, nausea, pain, pain controlled, shortness of breath, vomiting, wheez ing. Nursing reports: No: complaints. Review of Systems All systems rev neg: except as marked Objective General VS/I O: Vital Signs Date Temp Pulse Resp B/P B/P Mean Pulse Ox FiO2 10/30-10/31 97.5-98.4 89-112 13-28 90-132/55-92 0.0-98.8 99-100 Last Documented: Result Date Time Pulse Ox 100 10/31 0520 B/P 128/55 / 0520 B/P Mean 79.2 10/31 0520 O2 Delivery Room air 10/31 0520 Temp 98.1 / 0520 Pulse 89 / 0520 Resp 15 / 0520 Vital Signs: Date Time Temp Pulse Resp B/P B/P Pulse O2 O2 F low FiO2 Mean Ox Delivery Rate 10/31 0520 98.1 89 15 128/55 79.2 100 Room air 10/31 0128 90 115/69 84.4 10/31 0119 98.4 94 14 90/60 70.5 99 Room air 10/30 2229 112 117/77 90.5 10/30 2119 97.9 98 15 132/82 98.8 100 Room air 10/30 1707 97.5 100 15 122/92 0.0 100 10/30 1132 97.7 97 13 115/59 0.0 100 10/30 0914 99 28 124/70 91 24 hour I O ending at 0700: 10/31 0700 10/30 1900 Intake Total 295.00 Output Total 150 Balance 145.00 Intake, IV 45.00 Intake, Oral 250 Number 0 Bowel Movements Output, Urine 150 PATIENT WEIGHT: Weight (lb): Weight (oz): Weight (kg): 100.000 Physical Exam General appearance: alert, awake, oriented Wound/incision: Location: Sacral ulcer (+) Vac Head/Eyes: atraumatic, normocephalic Neck: supple/no meningismus, no JVD Cardiovascular: normal heart sounds, regular rat e rhythm, no murmur Respiratory: clear to auscultation, aerating wel l, symmetric expansion Abdomen: distended, normal bowel sounds, soft, r ectal tube Genitourinary: urinary catheter (condom cath) Extremities: no cyanosis, no edema 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, oriented X 3, paraplegia Considered stroke alert: no Skin: dry, no rash Results Findings/Data: Laboratory Tests 10/30 131 Chemistry C-Reactive Protein (<10.0 mg/L) 161.0 H Laboratory Tests 10/30 131 Hematology ESR Westergren (0 - 15 mm/hr) 101 H Results: labs reviewed, vital signs reviewed, vi josseline signs stable, CT results reviewed, current med profile rev'd Diagnosis, Assessment Plan Free Text A P: Assessment: Mr. 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 Patient self catheterizes himself. He also developed a sacral decub ulcer around 2 years ag o, which seems to be slowly healing. [facility] and came to the ED with nausea, vomiting , fever, chills. Fever was up to 103 F reportedl y. Here, x-ray of the abdomen shows small bowel obs tructive gas pattern. Patient has been evaluated by general surgery. N o surgical interventions currently recommended. Infectious disease consultation is requested for sacral decub ulcer. He is found to have ESBL E coli bacteremia. *Severe Sepsis, resolving -Tachycardia and tachypnea -JENNIFER -Source: Bacteremia *Bacteremia, Ecoli ESBL -Suspect source of bacteremia is urinary tract. Patient self catheterizes himself, given history of neurogenic bladder. -GI source, given presentation with SBO, is anot her possibility. *PSBO -General Surgery following *Sacral decub ulcer -Sacral decub ulcers seem to be healing, without obvious signs of infection. *Paraplegia *JENNIFER *Metabolic acidosis *UTI Plan: -On Merrem, plan x 2 weeks with a stop date of 0 11/09 -CT reviewed personally (+) bladder diverticulum ; with fluid collection near bladder -Check bladder US and PVR Midline if ok with renal Pt seen and examined with Dr Elder Electronically Signed by Isaías Vizcarra NP on at 1941 Electronically Signed by Tom Elder MD on at 0759 RPT #:[id number] END OF REPORT 2022-10-30 15:39:00-00:00 [facility] ([facility]) GE Consultation Note REPORT#:[id number] REPORT STATUS: Signed DATE:10/30/22 TIME: 1539 PATIENT: JORGE GOINS UNIT #: [id number] ROOM/BED: [place] [address] : 86 AGE: 37 SEX: M ATTEND: Reed Lizama MD ADM AUTHOR: Festus Spears MD * ALL edits or amendments must be made on the rimidi/computer document * History of Present Illness HPI: 37 year old man with neuroge tuyet bladder, undergoing treatment for UTI, noted to have persistent nausea and vomiting. History - Adult longitudinal Past medical history: Reports: Congestive heart fa ilure, Hypertension. Denies: Kidney disease/stones. Additional medical history: type B dissection s/p TEVAR, HTN Past surgical history: Reports: Cholecystectomy. Additional surgical history: TEVAR, TAYLA, THORACIC AOTIC ANEURYSM RUPTURE WI TH REPAIR Family history: Reports: Diabetes, Hypertension. 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 Allergies: Coded Allergies: Iodine and Iodide Containing Produc (Severe, HIV ES 11/19/19) shellfish derived (Intermediate, RASH 11/19/19) Review of Systems Additional notes: 10 point ros neg except hpi Objective Physical Exam VS/I O: Last Documented: Result Date Time Pulse Ox 100 10/30 1132 B/P 115/59 05/07 113 B/P Mean 0.0 10/30 113 Temp 36.5 10/30 113 Pulse 97 10/30 1132 Resp 13 10/30 113 O2 Delivery Room air 10/29 1730 24 hour I O ending at 0700: 10/30 0700 10/29 1900 Intake Total Output Total 375 Balance -375 Output, Emesis Output, Urine 375 PATIENT WEIGHT: Weight (lb): Weight (oz): Weight (kg): 100.000 Medications: Active Meds + DC'd Last 24 Hrs Hydrocodone Bitart/Acetaminophen (NORCO 5/325) 1 TAB Q6H PRN PRN PO Morphine Sulfate (morphine SULFATE) 4 MG Q4H PRN PRN IV Calcium Carbonate (TUMS CHEW TAB) 1,000 MG Q2H P RN PRN PO Metoprolol Tartrate (LOPRESSOR) 25 MG Q12HR PO Metoclopramide HCl (REGLAN) 5 MG Q8H PRN PRN IV Sodium Chloride (SODIUM CHLORIDE) 10 ML BID IV Meropenem (MEROPENEM) 500 MG Q6H IV Sterile Water (WATER FOR INJECTION) 10 ML Sodium Chloride (SODIUM CHLORIDE) 10 ML ASDIR ND N IV Potassium Chloride (POTASSIUM CHLORIDE 20MEQ TAB .ER) 40 MEQ DAILY PRN PRN PO Heparin Sodium (HEPARIN 5000 UNITS/ML) 5,000 UNI T Q12HR SUBQ Acetaminophen (TYLENOL) 650 MG Q4H PRN PRN PO Hydrocodone Bitart/Acetaminophen (NORCO 5/325) 1 TAB Q6H PRN PRN PO (DC) Morphine Sulfate (morphine SULFATE) 4 MG Q4H PRN PRN IV (DC) Ondansetron HCl (ZOFRAN) 4 MG Q4H PRN PRN IV Temazepam (RESTORIL) 15 MG BEDTIME PRN PRN PO General appearance: alert, awake HEENT: abnl conjunctiva/sclera, dry mucosal memb ranes Neck: decreased range of motion Cardiovascular: normal capillary refill, regular rate rhythm Respiratory: aerating well, symmetric expansion Abdomen: non-tender Extremities: decreased range of motion Musculoskeletal: decreased ROM 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, oriented X 3 Skin: abnormal color, abnormal temperature Psychiatry: normal affect, normal judgment/insig ht Results Findings/Data: Laboratory Tests 10/30 1316 Chemistry C-Reactive Protein (<10.0 mg/L) 161.0 H Laboratory Tests 10/30 1316 Hematology ESR Westergren (0 - 15 mm/hr) 101 H Diagnosis, Assessment Plan Free Text DxA P Notes Free Text DxA P Notes: nausea, vomiting abnormal ct ? colitis anemia, nos - c/w empiric abx - agree with surgical recommendations - pain/emesis control - relistor qOD - monitor h/h, transfuse as needed Electronically Signed by Festus Spears MD on 10/30 at 1544 RPT #:[id number] END OF REPORT 2022-10-30 13:13:00-00:00 [facility] General Surgery Progress Note REPORT#:[id number] REPORT STATUS: Signed DATE:10/30/22 TIME: 1312 PATIENT: JORGE GOINS UNIT #: [id number] ROOM/BED: [place] [address] : 86 AGE: 37 SEX: M ATTEND: Reed Lizama MD ADM AUTHOR: Gillian Ramires MD * ALL edits or amendments must be made on the [employer]idi/computer document * Subjective Comments: No BM yet. Not taking much p.o. Feels full. Perez es much abdominal pain. Review of Systems All systems rev neg: except as marked Objective General VS/I O: Last Documented: Result Date Time Pulse Ox 100 10/30 1132 B/P 115/59 10/30 1132 B/P Mean 0.0 10/30 1132 Temp 97.7 10/30 1132 Pulse 97 10/30 1132 Resp 13 10/30 1132 O2 Delivery Room air 10/29 1730 Vital Signs Date Temp Pulse Resp B/P B/P Mean Pulse Ox FiO 2 10/29-10/30 97.7-98.6 97-112 13-28 110-140/58-9 2 0.0-110 96-100 24 hour I O ending at 0700: 10/30 0700 10/29 1900 Intake Total Output Total 375 Balance -375 Output, Emesis Output, Urine 375 PATIENT WEIGHT: Weight (lb): Weight (oz): Weight (kg): 100.000 Medications: Active Meds + DC'd Last 24 Hrs Hydrocodone Bitart/Acetaminophen (NORCO 5/325) 1 TAB Q6H PRN PRN PO Morphine Sulfate (morphine SULFATE) 4 MG Q4H PRN PRN IV Calcium Carbonate (TUMS CHEW TAB) 1,000 MG Q2H P RN PRN PO Metoprolol Tartrate (LOPRESSOR) 25 MG Q12HR PO Metoclopramide HCl (REGLAN) 5 MG Q8H PRN PRN IV Sodium Chloride (SODIUM CHLORIDE) 10 ML BID IV Meropenem (MEROPENEM) 500 MG Q6H IV Sterile Water (WATER FOR INJECTION) 10 ML Sodium Chloride (SODIUM CHLORIDE) 10 ML ASDIR ND N IV Potassium Chloride (POTASSIUM CHLORIDE 20MEQ TAB .ER) 40 MEQ DAILY PRN PRN PO Heparin Sodium (HEPARIN 5000 UNITS/ML) 5,000 UNI T Q12HR SUBQ Acetaminophen (TYLENOL) 650 MG Q4H PRN PRN PO Hydrocodone Bitart/Acetaminophen (NORCO 5/325) 1 TAB Q6H PRN PRN PO (DC) Morphine Sulfate (morphine SULFATE) 4 MG Q4H PRN PRN IV (DC) Ondansetron HCl (ZOFRAN) 4 MG Q4H PRN PRN IV Temazepam (RESTORIL) 15 MG BEDTIME PRN PRN PO Physical Exam General appearance: alert, awake, oriented Cardiovascular: tachycardia, regular rate and rh ythm Chest: normal appearance Respiratory: aerating well Abdomen: distended, non-tender, soft, no guardin g Rectal: rectal tube in place with no stool Skin: normal color, normal temperature, normal t urgor Diagnosis, Assessment Plan Free Text A P: psbo - likely reactive to whatever is source of inflammatory process in suprapubic preperiotneal fat. ? extension from b ladder infection vs hematoma. KUb in AM MInimal clears ok. Electronically Signed by Gillian Ramires MD on at 1315 RPT #:[id number] END OF REPORT 2022-10-30 11:45:00-00:00 [facility] ([facility]) Nephrology Progress Note REPORT#:[id number] REPORT STATUS: Signed DATE:10/30/22 TIME: 1145 PATIENT: JORGE GOINS UNIT #: [id number] ROOM/BED: 6609-1 : 86 AGE: 37 SEX: M ATTEND: Reed Lizama MD ADM AUTHOR: Patrica Caraballo MD * ALL edits or amendments must be made on the el [employer]/computer document * Subjective Chief complaint: Nausea/vomiting. 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 He was seen in ER. 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 He denied any recent hematuria or dysuri a or any other systemic complaints. he also denied any orthopnea, cramping, itching, ch patrick of taste, involuntary movements. He denied chronic use of NSAIDs. 10/30 Patient appearing uncomfortable due to nausea.To lerating liquids mostly. Objective General VS/I O: Vital Signs: Date Time Temp Pulse Resp B/P B/P Pulse O2 O2 F low FiO2 Mean Ox Delivery Rate 10/31 1103 36.4 103 16 137/81 100.0 95 Room air 10/31 0846 36.5 106 16 126/82 96.5 99 Room air 10/31 0520 36.7 89 15 128/55 79.2 100 Room air 10/31 0128 90 115/69 84.4 10/31 0119 36.9 94 14 90/60 70.5 99 Room air 10/30 2229 112 117/77 90.5 10/30 2119 36.6 98 15 132/82 98.8 100 Room air 10/30 1707 36.4 100 15 122/92 0.0 100 24 hour I O ending at 0700: 10/31 0700 10/30 1900 Intake Total 295.00 Output Total 150 Balance 145.00 Intake, IV 45.00 Intake, Oral 250 Number 0 Bowel Movements Output, Urine 150 PATIENT WEIGHT: Weight (lb): Weight (oz): Weight (kg): 100.000 Physical Exam General appearance: alert, awake, oriented Head/eyes: atraumatic, EOMI ENT: moist mucous membranes, normal nose Neck: no JVD, no lymphadenopathy Cardiovascular: normal heart sounds, regular rat e and rhythm Respiratory: aerating well, clear to auscultatio n Abdomen: soft, no distention Genitourinary: no bladder distention, no flank p ain Extremities: no edema, no gangrene, no swelling Considered stroke alert: no Ulcer: Type/cause: pressure Duration: chronic Location: sacral region Stage: 4 Gangrene present: no Diagnosis, Assessment Plan Free Text A P: 7-year-old male with known to have paraplegia [place] v[place] in detention after he had fentanyl poisoning 3 years ago presenting wi th nausea, vomiting, diarrhea and abdominal pain. He was seen in ER. 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 He denied any recent hematuria or dysuri a or any other systemic complaints. he also denied any orthopnea, cramping, itching, ch patrick of taste, involuntary movements. He denied chronic use of NSAIDs. Neph rology following for: 1. JENNIFER or JENNIFER on CKD. We do not have previous la bs to see if he has prior history of kidney disease from his urina ry retention. Plan is to monitor renal function closely. Keep mean arterial pressure ab ove 65 and avoid nephrotoxic agents. Plan is to follow renal ultrasound. 2. Metabolic acidosis: Most likely secondary to poor renal function. Plan is to change IV fluids from normal saline to IV bic arb. Plan is to monitor closely. 3. Hypovolemia: Plan is to monitor input and out put closely with low-dose IV fluids. 4. Urinary tract infection: Plan is to continue IV antibiotics and monitor renal dosing. 5. Hypocalcemia: Most likely secondary to inflam mation. Plan is to monitor ionized calcium and give calcium IV if low. 5/3 1. JENNIFER or JENNIFER on CKD. We do not have previous la bs to see if he has prior history of kidney disease from his urina ry retention. Plan is to monitor renal function closely. Keep mean arterial pressure ab ove 65 and avoid nephrotoxic agents. Renal ultrasound shows mild hydronephros is on the right side. Renal function stable 2. Metabolic acidosis: Most likely secondary to poor renal function. Plan is to change IV fluids from normal saline to IV bic arb. Plan is to monitor closely. 3. Hypovolemia: Plan is to monitor input and out put closely with low-dose IV fluids. 4. Urinary tract infection: Plan is to continue IV antibiotics and monitor renal dosing. 5. Hypocalcemia: Most likely secondary to inflam mation. Plan is to monitor ionized calcium and give calcium IV if low. 6. Hypokalemia: Plan to monitor and replace as n eeded. 10/27 1. JENNIFER or JENNIFER on CKD. We do not have previous la bs to see if he has prior history of kidney disease from his urina ry retention. Plan is to monitor renal function closely. Keep mean arterial pressure ab ove 65 and avoid nephrotoxic agents. Renal ultrasound shows mild hydronephros is on the right side. Renal function stable 2. Metabolic acidosis: Most likely secondary to poor renal function. patient given IV bicarb, plan to follow labs to see if f urther needed. 3. Hypovolemia: Plan is to monitor input and out put closely with low-dose IV fluids. 4. Urinary tract infection: Plan is to continue IV antibiotics and monitor renal dosing. 5. Hypocalcemia: Most likely secondary to inflam mation. Plan is to monitor ionized calcium and give calcium IV if low. 6. Hypokalemia: Plan to monitor and replace as n eeded. 10/29 1. JENNIFER or JENNIFER on CKD. We do not have previous la bs to see if he has prior history of kidney disease from his urina ry retention. Plan is to monitor renal function closely. Keep mean arterial pressure ab ove 65 and avoid nephrotoxic agents. Renal ultrasound shows mild hydronephros is on the right side. Renal function stable 2. Metabolic acidosis: Most likely secondary to poor renal function. patient given IV bicarb, plan to follow labs to see if f urther needed. Metabolic acidosis improving. 3. Hypovolemia: Plan is to monitor input and out put closely with low-dose IV fluids. 4. Urinary tract infection: Plan is to continue IV antibiotics and monitor renal dosing. 5. Hypocalcemia: Most likely secondary to inflam mation. Plan is to monitor ionized calcium and give calcium IV if low. 6. Hypokalemia: Plan to monitor and replace as n eeded 10/30 1. JENNIFER or JENNIFER on CKD. We do not have previous la bs to see if he has prior history of kidney disease from his urina ry retention. Plan is to monitor renal function closely. Keep mean arterial pressure a nadine 65 and avoid nephrotoxic agents. Renal ultrasound shows mild hydronephros is on the right side. Renal function stable 2. Metabolic acidosis: Most likely secondary to poor renal function. patient given IV bicarb, plan to follow labs to see if f urther needed. Metabolic acidosis improving. 3. Hypovolemia: Plan is to monitor input and out put closely with low-dose IV fluids. 4. Urinary tract infection: Plan is to continue IV antibiotics and monitor renal dosing. 5. Hypocalcemia: Most likely secondary to inflam mation. Plan is to monitor ionized calcium and give calcium IV if low. 6. Hypokalemia: Plan to monitor and replace as n eeded Consultants: infectious disease, surgery Electronically Signed by Patrica Caraballo MD on at 1547 RPT #:[id number] END OF REPORT 2022-10-30 09:09:00-00:00 [facility] Hospitalist Progress Note REPORT#:[id number] REPORT STATUS: Signed DATE:10/30/22 TIME: 908 PATIENT: JORGE GOINS UNIT #: [id number] ROOM/BED: [place] [address] : 86 AGE: 37 SEX: M ATTEND: Reed Lizama MD ADM AUTHOR: Reed Lizama MD * ALL edits or amendments must be made on the rimidi/computer document * Subjective Chief complaint: NOT EATING MUCH, MILD NAUSEA, INFORMED O F CT ABD WITH COLITIS, GI TO EVAL, AND GS TO EVAL FOR SBO. HPI: Patient reports not much change overnight, stephanie nues to have back pain and shoulder pains, liquid stools. No overnight even t noted. Plan to challenge oral diet, on clears today. Objective General VS/I O: Vital Signs: Date Time Temp Pulse Resp B/P B/P Pulse O2 O2 F low FiO2 Mean Ox Delivery Rate 10/31 723 98.1 98 19 111/65 0.0 99 10/30 612 112 138/92 110 98 10/30 506 98.4 109 14 132/85 0.0 98 05/07 0500 108 22 97 05/07 0449 109 96 05/07 0400 109 24 96 05/07 0315 109 13 132/85 103 100 05/07 0200 99 23 116/66 85 96 05/07 0100 102 19 110/74 87 98 05/07 0000 105 98 05/06 2344 98.6 101 16 140/64 0.0 100 05/06 2343 140/64 05/06 2300 108 22 124/69 92 98 05/06 2253 104 25 97 05/06 2200 102 127/72 94 97 05/06 2153 98.1 108 13 134/77 0.0 100 05/06 2152 111 16 134/77 96 99 05/06 2000 105 16 100 05/06 1900 104 14 132/72 92 99 05/06 1825 105 22 131/74 92 98 05/06 1800 102 22 98 05/06 1730 98.4 102 22 131/74 93 98 Room air 05/06 1700 102 22 96 05/06 1600 97 22 128/67 90 100 05/06 1500 101 25 123/70 91 98 05/06 1400 100 26 122/62 87 99 05/06 1334 103 22 124/58 79 99 05/06 1324 101 14 132/62 89 05/06 1300 98.5 103 22 124/58 80 99 Room air 05/06 1000 102 22 24 hour I O ending at 0700: 05/07 0700 05/06 1900 Intake Total Output Total 375 Balance -375 Output, Emesis Output, Urine 375 PATIENT WEIGHT: Weight (lb): Weight (oz): Weight (kg): 100.000 Medications: Active Meds + DC'd Last 24 Hrs Hydrocodone Bitart/Acetaminophen (NORCO 5/325) 1 TAB Q6H PRN PRN PO Morphine Sulfate (morphine SULFATE) 4 MG Q4H PRN PRN IV Calcium Carbonate (TUMS CHEW TAB) 1,000 MG Q2H P RN PRN PO Metoprolol Tartrate (LOPRESSOR) 25 MG Q12HR PO Metoclopramide HCl (REGLAN) 5 MG Q8H PRN PRN IV Sodium Chloride (SODIUM CHLORIDE) 10 ML BID IV Meropenem (MEROPENEM) 500 MG Q6H IV Sterile Water (WATER FOR INJECTION) 10 ML Sodium Chloride (SODIUM CHLORIDE) 10 ML ASDIR ND N IV Potassium Chloride (POTASSIUM CHLORIDE 20MEQ TAB .ER) 40 MEQ DAILY PRN PRN PO Heparin Sodium (HEPARIN 5000 UNITS/ML) 5,000 UNI T Q12HR SUBQ Acetaminophen (TYLENOL) 650 MG Q4H PRN PRN PO Hydrocodone Bitart/Acetaminophen (NORCO 5/325) 1 TAB Q6H PRN PRN PO (DC) Morphine Sulfate (morphine SULFATE) 4 MG Q4H PRN PRN IV (DC) Ondansetron HCl (ZOFRAN) 4 MG Q4H PRN PRN IV Temazepam (RESTORIL) 15 MG BEDTIME PRN PRN PO Physical Exam General appearance: chronically ill appearing, o bese, alert, awake Neck: no JVD, HAS A SHORT CARLSON Cardiovascular: normal heart sounds, regular rat e rhythm Respiratory: aerating well, clear to auscultatio n Abdomen: non-tender, normal bowel sounds, soft, no distention Extremities: no edema Musculoskeletal: PARAPLEGIA WITH MUSCLE ATROPHY 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, oriented X 3, normal speech, P ARAPLEGIA Considered stroke alert: no Skin: dry Wound/incision: Location: WOUND VAC IN PLACE Ulcer: Type/cause: pressure Duration: chronic Location: sacral region Stage: 4 Gangrene present: no Psychiatry: normal affect, normal judgment/insig ht Results Radiology data: Recent Impressions: CAT SCAN - CT ABD PELVIS W/O CONT 10/29 1049 Report Impression - Status: SIGNED Entered: 10/29/2022 9288 IMPRESSION: 1. Findings suspicious for colitis. 2. Small-bowel obstruction point of obstruction probably left upper central abdomen maybe related to adhesions . 3. Non organized fluid identified along the lowe r abdominal wall towards the bladder dome correlate for history o f recent surgery or procedure, cannot exclude perforation. No pne umoperitoneum. 4. Findings consistent with cystitis. 5. Sacral decubitus ulcers. Impression By: [id number] - Zoey rosenbaum M.D. Diagnosis, Assessment Plan Consultants: infectious disease, surgery Free Text DxA P Notes Free text DxA P notes: 37-year-old, with history of fentanyl OD, cardia c arrest, paraplegia, and ascending thoracic aneurysm repair, neurogenic b ladder, and chronic sacral decubitus ulcer is admitted with SBO, and UTI. #ILEUS VS SBO, Noted on REPEAT CT ABD - IMPROVED , GOOD BM, GS SEEN, REPEAT CT ABD NOTED, ON CLD General surgery consulted, and evaluated patien t, had large bowel movement during eval. We will advance diet as tolerated, start on evette ars today POSSIBLE COLITIS ON CT ABD - ASK GI TO EVAL, GET ESR/CRP #Chronic sacral decubitus ul cer - NOW ON VAC, WC SEEN, TX TO SNF IN [facility] WHEN STABLE NEXT WEEK, CM TO ARRANGE Consulted ID/wound care/general surgery to eval uate #ARF (PRERENAL) on CRF - BETTER, FROM 3.2 TO 2.4 , 1.4 NOW, RENAL SEEN #H/O Paraplegia FROM CARDIAC ARREST? - STABLE #Neurogenic bladder - ON SELF CATH AT HOME, COMP LICATION OF UTI #Urinary tract infection WIT H BACTEREMIA WITH E.COLI/ESBL - NOW ON MERREM, VANC, ID SEEN, X 14 DAYS UNTIL 11/09/22, S/P PICC, PLAN FOR SNF TX DVT PX - Continue Heparin Code Full Electronically Signed by Reed Lizama MD on 10/30 at 0913 RPT #:[id number] END OF REPORT 2022-10-29 23:24:00-00:00 [id number] [place] [address] PATIENT NAME: JORGE GOINS ADMIT DATE: 10/24 ACCOUNT NO: [id number] ROOM NO: [facility] AGE: 37 REPORT TYPE: PROGRESS NOTE SEX: M ADMITTING PHYSICIAN:Reed Lizama MD ATTENDING PHYSICIAN:Reed Lizama MD DATE: 10/29/2022 SUBJECTIVE: Events noted. OBJECTIVE: VITAL SIGNS: Afebrile. NECK: Supple. CHEST: Clear. HEART: Normal. SKIN: Examination of wound on the bottom, wound VAC applied. Periwound healthy. No maceration. No odor present. IMPRESSION: Bottom wound is getting better. RECOMMENDATIONS: We will continue to currently m onitor the wound and nutritional support. Dictated By: Tylor Noland MD Date Dictated: 10/29/2022 23:24:05 Date Transcribed: 10/30/2022 00:30:05 ONDINA/LIZANDRO Receipt ID: [id number] Authenticated by Tylor Noland MD On 023 07:17:04 PM Electronically Signed by Tylor Noland MD on 03/18 at 0717 PATIENT NAME: JORGE GOINS [id number] 13:25:00-00:00 [facility]) Nephrology Progress Note REPORT#:[id number] REPORT STATUS: Signed DATE:10/29/22 TIME: 1325 PATIENT: JORGE GOINS UNIT #: [id number] ROOM/BED: [place] [address] : 86 AGE: 37 SEX: M ATTEND: Reed Lizama MD ADM AUTHOR: Patrica Caraballo MD * ALL edits or amendments must be made on the rimidi/computer document * Subjective Chief complaint: Nausea/vomiting. 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 He was seen in ER. 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 He denied any recent hematuria or dysuri a or any other systemic complaints. he also denied any orthopnea, cramping, itching, ch patrick of taste, involuntary movements. He denied chronic use of NSAIDs. 5/6 Patient appearing uncomfortable due to nausea.To lerating liquids mostly. Objective General VS/I O: Vital Signs: Date Time Temp Pulse Resp B/P B/P Pulse O2 O2 Flow FiO2 Mean Ox Delivery Rate 10/29 2153 36.7 108 13 134/77 0.0 100 10/29 1825 105 22 131/74 92 98 / 1800 102 22 98 10/29 1730 36.9 102 22 131/74 93 98 Room air 10/29 1700 102 22 96 / 1600 97 22 128/67 90 100 10/29 1500 101 25 123/70 91 98 10/29 1400 100 26 122/62 87 99 10/29 1334 103 22 124/58 79 99 05/06 1324 101 14 132/62 89 05/06 1300 36.9 103 22 124/58 80 99 Room air 05/06 1000 102 22 05/06 0900 106 22 05/06 0835 109 22 133/73 99 05/06 0800 37.0 109 22 133/73 93 100 Room air 05/06 0800 37.0 109 22 133/73 93 100 Room air 05/06 0700 100 26 100 05/06 0453 37.1 108 19 118/75 89.5 100 Room air 05/06 0045 36.7 95 20 124/65 0.0 100 Room air 24 hour I O ending at 0700: 05/06 0700 05/05 1900 Intake Total 410.00 Output Total 450 Balance -40.00 Intake, IV 60.00 Intake, Oral 350 Number 1 Incontinent Voids Output, Urine 450 PATIENT WEIGHT: Weight (lb): Weight (oz): Weight (kg): 100.000 Physical Exam General appearance: alert, awake, oriented Head/eyes: atraumatic, EOMI ENT: moist mucous membranes, normal nose Neck: no JVD, no lymphadenopathy Cardiovascular: normal heart sounds, regular rat e and rhythm Respiratory: aerating well, clear to auscultatio n Abdomen: soft, no distention Genitourinary: no bladder distention, no flank p ain Extremities: no edema, no gangrene, no swelling Considered stroke alert: no Ulcer: Type/cause: pressure Duration: chronic Location: sacral region Stage: 4 Gangrene present: no Diagnosis, Assessment Plan Free Text A P: 7-year-old male with known to have paraplegia li ving in detention after he had fentanyl poisoning 3 years ago presenting wi th nausea, vomiting, diarrhea and abdominal pain. He was seen in ER. 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 He denied any recent hematuria or dysuri a or any other systemic complaints. he also denied any orthopnea, cramping, itching, ch patrick of taste, involuntary movements. He denied chronic use of NSAIDs. Neph rology following for: 1. JENNIFER or JENNIFER on CKD. We do not have previous la bs to see if he has prior history of kidney disease from his urina ry retention. Plan is to monitor renal function closely. Keep mean arterial pressure ab ove 65 and avoid nephrotoxic agents. Plan is to follow renal ultrasound. 2. Metabolic acidosis: Most likely secondary to poor renal function. Plan is to change IV fluids from normal saline to IV bic arb. Plan is to monitor closely. 3. Hypovolemia: Plan is to monitor input and out put closely with low-dose IV fluids. 4. Urinary tract infection: Plan is to continue IV antibiotics and monitor renal dosing. 5. Hypocalcemia: Most likely secondary to inflam mation. Plan is to monitor ionized calcium and give calcium IV if low. 10/26 1. JENNIFER or JENNIFER on CKD. We do not have previous la bs to see if he has prior history of kidney disease from his urina ry retention. Plan is to monitor renal function closely. Keep mean arterial pressure ab ove 65 and avoid nephrotoxic agents. Renal ultrasound shows mild hydronephros is on the right side. Renal function stable 2. Metabolic acidosis: Most likely secondary to poor renal function. Plan is to change IV fluids from normal saline to IV bic arb. Plan is to monitor closely. 3. Hypovolemia: Plan is to monitor input and out put closely with low-dose IV fluids. 4. Urinary tract infection: Plan is to continue IV antibiotics and monitor renal dosing. 5. Hypocalcemia: Most likely secondary to inflam mation. Plan is to monitor ionized calcium and give calcium IV if low. 6. Hypokalemia: Plan to monitor and replace as n eeded. 10/27 1. JENNIFER or JENNIFER on CKD. We do not have previous la bs to see if he has prior history of kidney disease from his urina ry retention. Plan is to monitor renal function closely. Keep mean arterial pressure ab ove 65 and avoid nephrotoxic agents. Renal ultrasound shows mild hydronephros is on the right side. Renal function stable 2. Metabolic acidosis: Most likely secondary to poor renal function. patient given IV bicarb, plan to follow labs to see if f urther needed. 3. Hypovolemia: Plan is to monitor input and out put closely with low-dose IV fluids. 4. Urinary tract infection: Plan is to continue IV antibiotics and monitor renal dosing. 5. Hypocalcemia: Most likely secondary to inflam mation. Plan is to monitor ionized calcium and give calcium IV if low. 6. Hypokalemia: Plan to monitor and replace as n eeded. 10/29 1. JENNIFER or JENNIFER on CKD. We do not have previous la bs to see if he has prior history of kidney disease from his urina ry retention. Plan is to monitor renal function closely. Keep mean arterial pressure ab ove 65 and avoid nephrotoxic agents. Renal ultrasound shows mild hydronephros is on the right side. Renal function stable 2. Metabolic acidosis: Most likely secondary to poor renal function. patient given IV bicarb, plan to follow labs to see if f urther needed. Metabolic acidosis improving. 3. Hypovolemia: Plan is to monitor input and out put closely with low-dose IV fluids. 4. Urinary tract infection: Plan is to continue IV antibiotics and monitor renal dosing. 5. Hypocalcemia: Most likely secondary to inflam mation. Plan is to monitor ionized calcium and give calcium IV if low. 6. Hypokalemia: Plan to monitor and replace as n eeded Consultants: infectious disease, surgery Electronically Signed by Patrica Caraballo MD on at 2257 RPT #:[id number] END OF REPORT 2022-10-29 13:01:00-00:00 [facility] General Surgery Progress Note REPORT#:[id number] REPORT STATUS: Signed DATE:10/29/22 TIME: 1301 PATIENT: JORGE GOINS UNIT #: [id number] ROOM/BED: [place] [address] : 86 AGE: 37 SEX: M ATTEND: Reed Lizama MD ADM AUTHOR: Gillian Ramires MD * ALL edits or amendments must be made on the rimidi/computer document * Subjective Comments: NO BM in a couple of days. Feels more bloated. T achycardic. CT done. Review of Systems All systems rev neg: except as marked Objective General VS/I O: Last Documented: Result Date Time Pulse 102 10/29 1000 Resp 22 10/29 1000 B/P 133/73 10/29 0835 B/P Mean 99 10/29 0835 Pulse Ox 100 10/29 0700 O2 Delivery Room air 10/29 0453 Temp 98.8 10/29 0453 Vital Signs Date Temp Pulse Resp B/P B/P Mean Pulse Ox FiO2 10/28-10/29 98.1-98.8 95-131 18-33 118-145/65-9 0 0.0-109 97-100 24 hour I O ending at 0700: 10/29 0700 10/28 1900 Intake Total 410.00 Output Total 450 Balance -40.00 Intake, IV 60.00 Intake, Oral 350 Number 1 Incontinent Voids Output, Urine 450 PATIENT WEIGHT: Weight (lb): Weight (oz): Weight (kg): 100.000 Medications: Active Meds + DC'd Last 24 Hrs Calcium Carbonate (TUMS CHEW TAB) 1,000 MG Q2H P RN PRN PO Metoprolol Tartrate (LOPRESSOR) 25 MG Q12HR PO Potassium Chloride (POTASSIUM CHLORIDE 20MEQ TAB .ER) 40 MEQ ONCE ONE PO (DC) Metoclopramide HCl (REGLAN) 5 MG Q8H PRN PRN IV Sodium Chloride (SODIUM CHLORIDE) 10 ML BID IV Meropenem (MEROPENEM) 500 MG Q6H IV Sterile Water (WATER FOR INJECTION) 10 ML Sodium Chloride (SODIUM CHLORIDE) 10 ML ASDIR ND N IV Potassium Chloride (POTASSIUM CHLORIDE 20MEQ TAB .ER) 40 MEQ DAILY PRN PRN PO Heparin Sodium (HEPARIN 5000 UNITS/ML) 5,000 UNI T Q12HR SUBQ Acetaminophen (TYLENOL) 650 MG Q4H PRN PRN PO Hydrocodone Bitart/Acetaminophen (NORCO 5/325) 1 TAB Q6H PRN PRN PO Morphine Sulfate (morphine SULFATE) 4 MG Q4H PRN PRN IV Ondansetron HCl (ZOFRAN) 4 MG Q4H PRN PRN IV Temazepam (RESTORIL) 15 MG BEDTIME PRN PRN PO Physical Exam General appearance: alert, awake, oriented Cardiovascular: tachycardia, regular rate and rh ythm Respiratory: aerating well Abdomen: distended, non-tender, soft, no guardin g 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, oriented x 3, CNII-XII intact, normal speech Results Findings/Data: Laboratory Tests 10/29/22 0505: [Embedded Image Not Available] 10/28/22 1450: [Embedded Image Not Available] Laboratory Tests 10/29 10/28 10/28 0505 2120 1450 Chemistry Sodium (134 - 147 mEq/L) 138 135 Potassium (3.4 - 5.0 mEq/L) 3.2 L 3.0 L Chloride (100 - 108 mEq/L) 104 105 Carbon Dioxide (21 - 33 mEq/l) 23 18 L Anion Gap (0 - 20) 14 15 BUN (7 - 18 mg/dL) 32 H 34 H Creatinine (0.6 - 1.3 mg/dL) 1.4 H 1.5 H Glomerular Filtr Rate (105 - 110) 66.8 L 61.5 L Glucose (70 - 110 mg/dL) 85 121 H Lactic Acid (0.4 - 1.9 mmol/L) 1.2 Calcium (8.0 - 10.5 mg/dL) 8.8 8.5 Total Bilirubin (0.0 - 1.0 mg/dL) 0.50 AST (15 - 37 IUnit/L) 9 L ALT (30 - 65 IUnit/L) < 7 L Total Alk Phosphatase (20 - 125 IUnit/L) 103 Total Protein (6.4 - 8.2 g/dL) 7.5 Albumin (3.4 - 5.0 g/dL) 2.80 L Laboratory Tests 10/29 05/05 0505 1450 Hematology WBC (4.5 - 11.0 x10 3/uL) 13.2 H 15.4 H RBC (4.00 - 5.60 x10 6/uL) 3.41 L 3.73 L Hgb (12.5 - 16.9 g/dL) 9.8 L 10.8 L Hct (37.5 - 50.7 %) 30.7 L 32.6 L MCV (81.0 - 99.0 fL) 90.0 87.4 MCH (27.0 - 33.0 pg) 28.7 29.0 MCHC (33.0 - 37.0 g/dL) 31.9 L 33.1 RDW (11.5 - 14.5 %) 17.0 H 16.8 H Plt Count (150 - 400 x10 3/uL) 351 330 MPV (7.0 - 9.0 fL) 11.2 H 11.0 H Neut % (Auto) (56.0 - 77.0 %) 74.5 78.3 H Lymph % (Auto) (14.0 - 32.0 %) 12.0 L 8.0 L Citrus % (Auto) (4.8 - 9.0 %) 8.6 7.1 Eos % (Auto) (0.3 - 3.7 %) 1.9 1.4 Baso % (Auto) (0.0 - 2.0 %) 0.2 0.3 Neut # (Auto) (2.0 - 7.6 x10 3/uL) 9.80 H 12.07 H Lymph # (Auto) (1.0 - 3.8 x10 3/uL) 1.58 1.24 Citrus # (Auto) (0.1 - 0.8 x10 3/uL) 1.13 H 1.10 H Eos # (Auto) (0.0 - 0.2 x10 3/uL) 0.25 H 0.21 H Baso # (Auto) (0.0 - 0.2 x10 3/uL) 0.03 0.04 Abs Immat Gran (auto) (0.00 - 0.03 x10 3/uL) 0. 37 H 0.76 H Add Manual Diff NO NO Immature Gran % (0.0 - 2.0 %) 2.8 H 4.9 H Nucleated RBC % (0 - 0 %) 0.0 0.0 Nucleated RBCs # (Man) (0.0 - 0.1 x10 3/uL) 0.0 0 0.00 Radiology data: Recent Impressions: RADIOLOGY - XR ABDOMEN 1V (KUB) 10/28 1617 Report Impression - Status: SIGNED Entered: 10/28/2022 7012 IMPRESSION: 1. Multiple dilated gas-filled organized small-b owel loops are again present centrally along with smaller amoun ts of scattered colonic gas most consistent with distal small jacob wel obstruction. 2. Suspect minimal right pleural effusion or ple ural thickening. Impression By: [email or web address] - Per Bhatt M.D. Diagnosis, Assessment Plan Free Text A P: psbo - I reviewed cT. Awaiting formal read. Per my read, no clear transition point. Looks like rectus sheath hematoma or prep eriotneal fat hematoma that maybe causing paralytic ileus. continue npo, bowel rest and monitor trend WBC, h/h Electronically Signed by Gillian Ramires MD on at 1303 RPT #:[id number] END OF REPORT 2022-10-29 11:48:00-00:00 [facility] Hospitalist Progress Note REPORT#:[id number] REPORT STATUS: Signed DATE:10/29/22 TIME: 1148 PATIENT: JORGE GOINS UNIT #: [id number] ROOM/BED: [place] [address] : 86 AGE: 37 SEX: M ATTEND: Reed Lizama MD ADM AUTHOR: Reed Lizama MD * ALL edits or amendments must be made on the rimidi/computer document * Subjective Chief complaint: NO COMPLAITNS, INFORMED OF Wallace TAYLOR, CT ABD DONE, THEN HE PREFERS TO GO BACK TO SNF IN [place] FOR WC/VAC, ABX HPI: Patient reports not much change overnight, stephanie nues to have back pain and shoulder pains, liquid stools. No overnight even t noted. Plan to challenge oral diet, on clears today. Objective General VS/I O: Vital Signs: Date Time Temp Pulse Resp B/P B/P Pulse O2 O2 F low FiO2 Mean Ox Delivery Rate 10/29 1000 102 22 / 0900 106 22 / 0835 109 22 133/73 99 / 0700 100 26 100 / 0453 98.8 108 19 118/75 89.5 100 Room air / 0045 98.1 95 20 124/65 0.0 100 Room air / 1936 98.8 109 20 145/80 0.0 100 Room air 05/05 1800 114 29 98 05/05 1717 98.2 116 18 141/77 0.0 100 Room air 05/05 1715 117 19 141/77 103 100 05/05 1700 111 25 99 05/05 1547 117 33 134/90 109 97 05/05 1500 117 25 98 05/05 1400 131 30 98 05/05 1300 133 30 99 05/05 1250 100.2 130 18 130/77 0.0 98 Room air 05/05 1237 127 25 130/77 97 05/05 1200 124 30 24 hour I O ending at 0700: 10/29 0700 05/05 1900 Intake Total 410.00 Output Total 450 Balance -40.00 Intake, IV 60.00 Intake, Oral 350 Number 1 Incontinent Voids Output, Urine 450 PATIENT WEIGHT: Weight (lb): Weight (oz): Weight (kg): 100.000 Medications: Active Meds + DC'd Last 24 Hrs Calcium Carbonate (TUMS CHEW TAB) 1,000 MG Q2H P RN PRN PO Metoprolol Tartrate (LOPRESSOR) 25 MG Q12HR PO Potassium Chloride (POTASSIUM CHLORIDE 20MEQ TAB .ER) 40 MEQ ONCE ONE PO (DC) Metoclopramide HCl (REGLAN) 5 MG Q8H PRN PRN IV Sodium Chloride (SODIUM CHLORIDE) 10 ML BID IV Meropenem (MEROPENEM) 500 MG Q6H IV Sterile Water (WATER FOR INJECTION) 10 ML Sodium Chloride (SODIUM CHLORIDE) 10 ML ASDIR ND N IV Potassium Chloride (POTASSIUM CHLORIDE 20MEQ TAB .ER) 40 MEQ DAILY PRN PRN PO Heparin Sodium (HEPARIN 5000 UNITS/ML) 5,000 UNI T Q12HR SUBQ Acetaminophen (TYLENOL) 650 MG Q4H PRN PRN PO Hydrocodone Bitart/Acetaminophen (NORCO 5/325) 1 TAB Q6H PRN PRN PO Morphine Sulfate (morphine SULFATE) 4 MG Q4H PRN PRN IV Ondansetron HCl (ZOFRAN) 4 MG Q4H PRN PRN IV Temazepam (RESTORIL) 15 MG BEDTIME PRN PRN PO Physical Exam General appearance: obese, alert, awake Neck: no JVD, HAS A SHORT CARLSON Cardiovascular: normal heart sounds, regular rat e rhythm Respiratory: aerating well, clear to auscultatio n Abdomen: non-tender, normal bowel sounds, soft, no distention Extremities: no edema Musculoskeletal: PARAPLEGIA WITH MUSCLE ATROPHY 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, oriented X 3, normal speech, P ARAPLEGIA Considered stroke alert: no Skin: dry Wound/incision: Location: WOUND VAC IN PLACE Ulcer: Type/cause: pressure Duration: chronic Location: sacral region Stage: 4 Gangrene present: no Psychiatry: normal affect, normal judgment/insig ht Results Findings/Data: Laboratory Tests 10/29 10/28 10/28 0505 2120 1450 Chemistry Sodium (134 - 147 mEq/L) 138 135 Potassium (3.4 - 5.0 mEq/L) 3.2 L 3.0 L Chloride (100 - 108 mEq/L) 104 105 Carbon Dioxide (21 - 33 mEq/l) 23 18 L Anion Gap (0 - 20) 14 15 BUN (7 - 18 mg/dL) 32 H 34 H Creatinine (0.6 - 1.3 mg/dL) 1.4 H 1.5 H Glomerular Filtr Rate (105 - 110) 66.8 L 61.5 L Glucose (70 - 110 mg/dL) 85 121 H Lactic Acid (0.4 - 1.9 mmol/L) 1.2 Calcium (8.0 - 10.5 mg/dL) 8.8 8.5 Total Bilirubin (0.0 - 1.0 mg/dL) 0.50 AST (15 - 37 IUnit/L) 9 L ALT (30 - 65 IUnit/L) < 7 L Total Alk Phosphatase (20 - 125 IUnit/L) 103 Total Protein (6.4 - 8.2 g/dL) 7.5 Albumin (3.4 - 5.0 g/dL) 2.80 L Laboratory Tests 10/29 05/05 0505 1450 Hematology WBC (4.5 - 11.0 x10 3/uL) 13.2 H 15.4 H RBC (4.00 - 5.60 x10 6/uL) 3.41 L 3.73 L Hgb (12.5 - 16.9 g/dL) 9.8 L 10.8 L Hct (37.5 - 50.7 %) 30.7 L 32.6 L MCV (81.0 - 99.0 fL) 90.0 87.4 MCH (27.0 - 33.0 pg) 28.7 29.0 MCHC (33.0 - 37.0 g/dL) 31.9 L 33.1 RDW (11.5 - 14.5 %) 17.0 H 16.8 H Plt Count (150 - 400 x10 3/uL) 351 330 MPV (7.0 - 9.0 fL) 11.2 H 11.0 H Neut % (Auto) (56.0 - 77.0 %) 74.5 78.3 H Lymph % (Auto) (14.0 - 32.0 %) 12.0 L 8.0 L Citrus % (Auto) (4.8 - 9.0 %) 8.6 7.1 Eos % (Auto) (0.3 - 3.7 %) 1.9 1.4 Baso % (Auto) (0.0 - 2.0 %) 0.2 0.3 Neut # (Auto) (2.0 - 7.6 x10 3/uL) 9.80 H 12.07 H Lymph # (Auto) (1.0 - 3.8 x10 3/uL) 1.58 1.24 Citrus # (Auto) (0.1 - 0.8 x10 3/uL) 1.13 H 1.10 H Eos # (Auto) (0.0 - 0.2 x10 3/uL) 0.25 H 0.21 H Baso # (Auto) (0.0 - 0.2 x10 3/uL) 0.03 0.04 Abs Immat Gran (auto) (0.00 - 0.03 x10 3/uL) 0. 37 H 0.76 H Add Manual Diff NO NO Immature Gran % (0.0 - 2.0 %) 2.8 H 4.9 H Nucleated RBC % (0 - 0 %) 0.0 0.0 Nucleated RBCs # (Man) (0.0 - 0.1 x10 3/uL) 0.0 0 0.00 Radiology data: Recent Impressions: RADIOLOGY - XR ABDOMEN 1V (KUB) 10/28 1617 Report Impression - Status: SIGNED Entered: 10/28/2022 1349 IMPRESSION: 1. Multiple dilated gas-filled organized small-b owel loops are again present centrally along with smaller amoun ts of scattered colonic gas most consistent with distal small jacob wel obstruction. 2. Suspect minimal right pleural effusion or ple ural thickening. Impression By: [email or web address] - Per Bhatt M.D. Diagnosis, Assessment Plan Consultants: infectious disease, surgery Free Text DxA P Notes Free text DxA P notes: 37-year-old, with history of fentanyl OD, cardia c arrest, paraplegia, and ascending thoracic aneurysm repair, neurogenic b ladder, and chronic sacral decubitus ulcer is admitted with SBO, and UTI. #ILEUS, NOT SBO, Noted on CT - RESOLVED, GOOD BM, GS SIGEND OFF, REPEAT CT ABD DONE General surgery consulted, and evaluated patien t, had large bowel movement during eval. We will advance diet as tolerated, start on evette ars today #Chronic sacral decubitus ulcer - NOW ON ON VAC, WC SEEN, SNF IN [facility] WHEN STABLE NEXT WEEK, CM TO ARRANGE Consulted ID/wound care/general surgery to eval uate #ARF (PRERENAL) on CRF - BETTER, FROM 3.2 TO 2.4 , 1.4 NOW, RENAL SEEN #H/O Paraplegia FROM CARDIAC ARREST - STABLE #Neurogenic bladder - ON SELF CATH AT HOME #Urinary tract infection WIT H BACTEREMIA WITH E.COLI/ESBL - NOW ON MERREM, VANC, ID SEEN, X 14 DAYS UNTIL 11/09/22, PLAN FOR SNF T X DVT PX -continue heparin Code Full Electronically Signed by Reed Lizama MD on 10/29 at 1153 RPT #:[id number] END OF REPORT 2022-10-28 18:10:00-00:00 [id number] [place] [address] PATIENT NAME: JORGE GOINS ADMIT DATE: 07/18 ACCOUNT NO: [id number] ROOM NO: [facility] [place] AGE: 37 REPORT TYPE: PROGRESS NOTE SEX: M ADMITTING PHYSICIAN:Reed Lizama MD ATTENDING PHYSICIAN:Reed Lizama MD DATE: 10/28/2022 SUBJECTIVE: Events noted. OBJECTIVE: VITAL SIGNS: Afebrile. NECK: Supple. CHEST: Clear. HEART: Normal. SKIN: Examination of wound on the bottom, size d ecreased. No maceration. Odor not present. Wound VAC applied. On the left isch ium wound vac is intact sacrum wound size decreased. Odor not pre sent. ABDOMEN: Soft. IMPRESSION: Chronic nonhealing wound on the hiren om. RECOMMENDATIONS: We will continue wound VAC. Nut ritional support. Dictated By: Tylor Noland MD Date Dictated: 10/28/2022 18:10:36 Date Transcribed: 10/28/2022 20:06:20 ONDINA/ARY/PATRICIA/MIGDALIA Receipt ID: [id number] Authenticated and Edited by Tylor Noland MD On 11/01/22 7:17:02 PM Electronically Signed by Tylor Noland MD on 03/18 at 0719 PATIENT NAME: JORGE GOINS [id number] 2022-10-28 15:38:00-00:00 [facility]L [facility] Hospitalist Progress Note REPORT#:[id number] REPORT STATUS: Signed DATE:10/28/22 TIME: 1538 PATIENT: JORGE GOINS UNIT #: [id number] ROOM/BED: [place] [address] : 86 AGE: 37 SEX: M ATTEND: Reed Lizama MD ADM AUTHOR: Reed Lizama MD * ALL edits or amendments must be made on the rimidi/computer document * Subjective Chief complaint: NO COMPLAINTS, INFORMED OF TRT PLAN, NEED FOR LT AC EVAL HPI: Patient reports not much change overnight, stephanie nues to have back pain and shoulder pains, liquid stools. No overnight even t noted. Plan to challenge oral diet, on clears today. Objective General VS/I O: Vital Signs: Date Time Temp Pulse Resp B/P B/P Pulse O2 O2 F low FiO2 Mean Ox Delivery Rate 05/05 1500 117 25 98 05/05 1400 131 30 98 05/05 1300 133 30 99 05/05 1250 100.2 130 18 130/77 0.0 98 Room air 05/05 1237 127 25 130/77 97 05/05 1200 124 30 05/05 1100 127 98 05/05 1000 126 100 05/05 0904 125 167/87 119 100 05/05 0806 99.0 123 18 123/85 0.0 100 Room air 05/05 0805 126 123/85 100 99 05/05 0700 117 100 05/05 0458 98.2 113 14 150/98 0.0 100 05/05 0454 117 17 150/98 116 98 05/05 0014 97.9 113 13 139/82 0.0 99 05/05 0002 117 139/82 105 100 05/04 2000 107 154/88 115 100 05/04 1950 97.7 106 16 149/79 0.0 100 05/04 1634 98.8 108 18 153/84 0.0 100 Room air 24 hour I O ending at 0700: 05/05 0700 10/27 1900 Intake Total 100 Output Total 50 Balance 50 Intake, Oral 100 Output, Emesis Output, Oral 50 Regurgitation PATIENT WEIGHT: Weight (lb): Weight (oz): Weight (kg): 100.000 Medications: Active Meds + DC'd Last 24 Hrs Metoprolol Tartrate (LOPRESSOR) 25 MG Q12HR PO ( UNVr) Potassium Chloride (POTASSIUM CHLORIDE 20MEQ TAB .ER) 40 MEQ ONCE ONE PO (DC) Metoclopramide HCl (REGLAN) 5 MG Q8H PRN PRN IV Sodium Chloride (SODIUM CHLORIDE) 10 ML BID IV Meropenem (MEROPENEM) 500 MG Q6H IV Sterile Water (WATER FOR INJECTION) 10 ML Sodium Chloride (SODIUM CHLORIDE) 10 ML ASDIR ND N IV Potassium Chloride (POTASSIUM CHLORIDE 20MEQ TAB .ER) 40 MEQ DAILY PRN PRN PO Heparin Sodium (HEPARIN 5000 UNITS/ML) 5,000 UNI T Q12HR SUBQ Acetaminophen (TYLENOL) 650 MG Q4H PRN PRN PO Hydrocodone Bitart/Acetaminophen (NORCO 5/325) 1 TAB Q6H PRN PRN PO Morphine Sulfate (morphine SULFATE) 4 MG Q4H PRN PRN IV Ondansetron HCl (ZOFRAN) 4 MG Q4H PRN PRN IV Temazepam (RESTORIL) 15 MG BEDTIME PRN PRN PO Physical Exam General appearance: alert, awake Neck: no JVD Cardiovascular: normal heart sounds, regular rat e rhythm Respiratory: aerating well, clear to auscultatio n Abdomen: non-tender, normal bowel sounds, soft, no distention Extremities: no edema Musculoskeletal: PARAPLEGIA WITH MUSCLE ATROPHY 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, oriented X 3, normal speech, P ARAPLEGIA Considered stroke alert: no Skin: dry Wound/incision: Location: WOUND VAC IN PLACE Ulcer: Type/cause: pressure Duration: chronic Location: sacral region Stage: 4 Gangrene present: no Psychiatry: normal affect, normal judgment/insig ht Results Findings/Data: Laboratory Tests 10/28 1450 Chemistry Sodium (134 - 147 mEq/L) 135 Potassium (3.4 - 5.0 mEq/L) 3.0 L Chloride (100 - 108 mEq/L) 105 Carbon Dioxide (21 - 33 mEq/l) 18 L Anion Gap (0 - 20) 15 BUN (7 - 18 mg/dL) 34 H Creatinine (0.6 - 1.3 mg/dL) 1.5 H Glomerular Filtr Rate (105 - 110) 61.5 L Glucose (70 - 110 mg/dL) 121 H Calcium (8.0 - 10.5 mg/dL) 8.5 Laboratory Tests 10/28 1450 Hematology WBC (4.5 - 11.0 x10 3/uL) 15.4 H RBC (4.00 - 5.60 x10 6/uL) 3.73 L Hgb (12.5 - 16.9 g/dL) 10.8 L Hct (37.5 - 50.7 %) 32.6 L MCV (81.0 - 99.0 fL) 87.4 MCH (27.0 - 33.0 pg) 29.0 MCHC (33.0 - 37.0 g/dL) 33.1 RDW (11.5 - 14.5 %) 16.8 H Plt Count (150 - 400 x10 3/uL) 330 MPV (7.0 - 9.0 fL) 11.0 H Neut % (Auto) (56.0 - 77.0 %) 78.3 H Lymph % (Auto) (14.0 - 32.0 %) 8.0 L Citrus % (Auto) (4.8 - 9.0 %) 7.1 Eos % (Auto) (0.3 - 3.7 %) 1.4 Baso % (Auto) (0.0 - 2.0 %) 0.3 Neut # (Auto) (2.0 - 7.6 x10 3/uL) 12.07 H Lymph # (Auto) (1.0 - 3.8 x10 3/uL) 1.24 Citrus # (Auto) (0.1 - 0.8 x10 3/uL) 1.10 H Eos # (Auto) (0.0 - 0.2 x10 3/uL) 0.21 H Baso # (Auto) (0.0 - 0.2 x10 3/uL) 0.04 Abs Immat Gran (auto) (0.00 - 0.03 x10 3/uL) 0. 76 H Add Manual Diff NO Immature Gran % (0.0 - 2.0 %) 4.9 H Nucleated RBC % (0 - 0 %) 0.0 Nucleated RBCs # (Man) (0.0 - 0.1 x10 3/uL) 0.0 0 Microbiology Date/Time Procedure - Status Source Growth 10/27 1700 MRSA DNA Surveillance Screen - COMP NASAL Diagnosis, Assessment Plan Consultants: infectious disease, surgery Free Text DxA P Notes Free text DxA P notes: 37-year-old, with history of fentanyl OD, cardia c arrest, paraplegia, and ascending thoracic aneurysm repair neurogenic bl adder, and chronic sacral decubitus ulcer is admitted with SBO, and UTI. #ILEUS, NOT SBO, Noted on CT - RESOLVED, GOOD BM , GS SEEN -Started on IV fluids n.p.o. General surgery consulted, and evaluated patien t, had large bowel movement during eval. We will advance diet as tolerated, start on evette ars today Continue symptomatic care Follow labs daily #Chronic sacral decubitus ulcer - NOW ON ON VAC, WC SEE Consulted ID/wound care/general surgery to eval uate Continue on cefepime and vancomycin, renally do se #ARF on CRF - BETTER, FROM 3.2 TO 2.4, RENAL SEE N Likely volume depletion, prerenal etiology Continue IV fluids renal ultrasound pending uri ne protein/creatinine, fena Daily labs #Paraplegia FROM CARDIAC ARREST - STABLE #Neurogenic bladder - ON SELF CATH AT HOME #Urinary tract infection WIT H BACTEREMIA WITH E.COLI/ESBL - NOW ON MERREM, VANC, ID SEEN, X 14 DAYS H/O cardiac arrest, Complicated with neurogenic bladder Patient self catheterizes/on condom cath -On cefepime, blood cultures showed ESBL, now st arted on meropenem DVT PX -continue heparin Code full Electronically Signed by Reed Lizama MD on 10/28 at 1540 RPT #:[id number] END OF REPORT 2022-10-28 15:32:00-00:00 [facility] ([facility]) Nephrology Progress Note REPORT#:[id number] REPORT STATUS: Signed DATE:10/28/22 TIME: 2 PATIENT: JORGE GOINS UNIT #: [id number] ROOM/BED: [place] [address] : 86 AGE: 37 SEX: M ATTEND: Reed Lizama MD ADM AUTHOR: Patrica Caraballo MD * ALL edits or amendments must be made on the rimidi/computer document * Subjective Chief complaint: Nausea/vomiting. 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 He was seen in ER. 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 He denied any recent hematuria or dysuri a or any other systemic complaints. he also denied any orthopnea, cramping, itching, ch patrick of taste, involuntary movements. He denied chronic use of NSAIDs. 10/28 Patient appearing uncomfortable due to nausea. Objective General VS/I O: Vital Signs: Date Time Temp Pulse Resp B/P B/P Pulse O2 O2 F low FiO2 Mean Ox Delivery Rate 10/29 1000 102 22 / 0900 106 22 / 0835 109 22 133/73 99 05/06 0700 100 26 100 05/06 0453 37.1 108 19 118/75 89.5 100 Room air 05/06 0045 36.7 95 20 124/65 0.0 100 Room air 05/05 1936 37.1 109 20 145/80 0.0 100 Room air 05/05 1800 114 29 98 05/05 1717 36.8 116 18 141/77 0.0 100 Room air 05/05 1715 117 19 141/77 103 100 05/05 1700 111 25 99 05/05 1547 117 33 134/90 109 97 05/05 1500 117 25 98 05/05 1400 131 30 98 24 hour I O ending at 0700: 06 0700 05/05 1900 Intake Total 410.00 Output Total 450 Balance -40.00 Intake, IV 60.00 Intake, Oral 350 Number 1 Incontinent Voids Output, Urine 450 PATIENT WEIGHT: Weight (lb): Weight (oz): Weight (kg): 100.000 Physical Exam General appearance: alert, awake, oriented Head/eyes: atraumatic, EOMI ENT: moist mucous membranes, normal nose Neck: no JVD, no lymphadenopathy Cardiovascular: normal heart sounds, regular rat e and rhythm Respiratory: aerating well, clear to auscultatio n Abdomen: soft, no distention Genitourinary: no bladder distention, no flank p ain Extremities: no edema, no gangrene, no swelling Considered stroke alert: no Ulcer: Type/cause: pressure Duration: chronic Location: sacral region Stage: 4 Gangrene present: no Diagnosis, Assessment Plan Free Text A P: 7-year-old male with known to have paraplegia li nilog in detention after he had fentanyl poisoning 3 years ago presenting wi th nausea, vomiting, diarrhea and abdominal pain. He was seen in ER. 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 He denied any recent hematuria or dysuri a or any other systemic complaints. he also denied any orthopnea, cramping, itching, ch patrick of taste, involuntary movements. He denied chronic use of NSAIDs. Neph rology following for: 1. JENNIFER or JENNIFER on CKD. We do not have previous la bs to see if he has prior history of kidney disease from his urina ry retention. Plan is to monitor renal function closely. Keep mean arterial pressure ab ove 65 and avoid nephrotoxic agents. Plan is to follow renal ultrasound. 2. Metabolic acidosis: Most likely secondary to poor renal function. Plan is to change IV fluids from normal saline to IV bic arb. Plan is to monitor closely. 3. Hypovolemia: Plan is to monitor input and out put closely with low-dose IV fluids. 4. Urinary tract infection: Plan is to continue IV antibiotics and monitor renal dosing. 5. Hypocalcemia: Most likely secondary to inflam mation. Plan is to monitor ionized calcium and give calcium IV if low. 5/3 1. JENNIFER or JENNIFER on CKD. We do not have previous la bs to see if he has prior history of kidney disease from his urina ry retention. Plan is to monitor renal function closely. Keep mean arterial pressure ab ove 65 and avoid nephrotoxic agents. Renal ultrasound shows mild hydronephros is on the right side. Renal function stable 2. Metabolic acidosis: Most likely secondary to poor renal function. Plan is to change IV fluids from normal saline to IV bic arb. Plan is to monitor closely. 3. Hypovolemia: Plan is to monitor input and out put closely with low-dose IV fluids. 4. Urinary tract infection: Plan is to continue IV antibiotics and monitor renal dosing. 5. Hypocalcemia: Most likely secondary to inflam mation. Plan is to monitor ionized calcium and give calcium IV if low. 6. Hypokalemia: Plan to monitor and replace as n eeded. 10/27 1. JENNIFER or JENNIFER on CKD. We do not have previous l abs to see if he has prior history of kidney disease from his urina ry retention. Plan is to monitor renal function closely. Keep mean arterial pressure ab ove 65 and avoid nephrotoxic agents. Renal ultrasound shows mild hydronephros is on the right side. Renal function stable 2. Metabolic acidosis: Most likely secondary to poor renal function. patient given IV bicarb, plan to follow labs to see if f urther needed. 3. Hypovolemia: Plan is to monitor input and out put closely with low-dose IV fluids. 4. Urinary tract infection: Plan is to continue IV antibiotics and monitor renal dosing. 5. Hypocalcemia: Most likely secondary to inflam mation. Plan is to monitor ionized calcium and give calcium IV if low. 6. Hypokalemia: Plan to monitor and replace as n eeded. 10/28 1. JENNIFER or JENNIFER on CKD. We do not have previous la bs to see if he has prior history of kidney disease from his urina ry retention. Plan is to monitor renal function closely. Keep mean arterial pressure ab ove 65 and avoid nephrotoxic agents. Renal ultrasound shows mild hydronephros is on the right side. Renal function stable 2. Metabolic acidosis: Most likely secondary to poor renal function. patient given IV bicarb, plan to follow labs to see if f urther needed. 3. Hypovolemia: Plan is to monitor input and out put closely with low-dose IV fluids. 4. Urinary tract infection: Plan is to continue IV antibiotics and monitor renal dosing. 5. Hypocalcemia: Most likely secondary to inflam mation. Plan is to monitor ionized calcium and give calcium IV if low. Consultants: infectious disease, surgery Electronically Signed by Patrica Caraballo MD on at 1325 RPT #:[id number] END OF REPORT 2022-10-28 13:36:00-00:00 [facility]L [facility] ([facility]) Infectious Dis. Progress Note REPORT#:[id number] REPORT STATUS: Signed DATE:10/28/22 TIME: 1336 PATIENT: JORGE GOISN UNIT #: [id number] ROOM/BED: [place] [address] : 86 AGE: 37 SEX: M ATTEND: Reed Lizama MD ADM AUTHOR: Esvin Gomez MD * ALL edits or amendments must be made on the [employer]idi[employer] document * Subjective Chief complaint: Follow-up on ESBL E coli bacteremia. HPI: Does not feel much better. Had multiple episodes of vomiting yesterday. Remains nauseous. Objective General VS/I O: Vital Signs Date Temp Pulse Resp B/P B/P Mean Pulse Ox FiO2 /04-10/28 97.7-100.2 106-133 13-33 123-167/77- 98 0.0-119 97-100 Last Documented: Result Date Time Pulse Ox 100 / 1717 B/P 141/77 05/ 1717 B/P Mean 0.0 05/ 1717 O2 Delivery Room air 10/28 171 Temp 98.2 05/ 1717 Pulse 116 05/ 1717 Resp 18 05/ 1717 Vital Signs: Date Time Temp Pulse Resp B/P B/P Pulse O2 O2 F low FiO2 Mean Ox Delivery Rate / 1717 98.2 116 18 141/77 0.0 100 Room air 05/05 1715 117 19 141/77 103 100 05/05 1700 111 25 99 05/05 1547 117 33 134/90 109 97 05/05 1500 117 25 98 05/05 1400 131 30 98 05/05 1300 133 30 99 05/05 1250 100.2 130 18 130/77 0.0 98 Room air 05/05 1237 127 25 130/77 97 05/05 1200 124 30 05/05 1100 127 98 05/05 1000 126 100 05/05 0904 125 167/87 119 100 05/05 0806 99.0 123 18 123/85 0.0 100 Room air 05/05 0805 126 123/85 100 99 05/05 0700 117 100 05/05 0458 98.2 113 14 150/98 0.0 100 05/05 0454 117 17 150/98 116 98 05/05 0014 97.9 113 13 139/82 0.0 99 10/28 0002 117 139/82 105 100 10/28 1999 107 154/88 115 100 10/27 1950 97.7 106 16 149/79 0.0 100 24 hour I O ending at 0700: 10/28 0700 10/27 1900 Intake Total 100 Output Total 50 Balance 50 Intake, Oral 100 Output, Emesis Output, Oral 50 Regurgitation PATIENT WEIGHT: Weight (lb): Weight (oz): Weight (kg): 100.000 Physical Exam General appearance: alert, awake, no acute distr ess Cardiovascular: normal heart sounds, regular rat e rhythm, no murmur Respiratory: clear to auscultation, aerating wel l, symmetric expansion Abdomen: distended, non-tender Extremities: no cyanosis, no edema 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, oriented X 3, paraplegia Considered stroke alert: no Skin: dry, no rash, has know n sacral decub ulcers; they were examined yesterday; not directly examined today Psychiatry: normal affect, normal mood Diagnosis, Assessment Plan Free Text A P: Assessment: Mr. 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 Patient self catheterizes himself. He also developed a sacral decub ulcer around 2 years ag o, which seems to be slowly healing. [facility] and came to the ED with nausea, vomiting , fever, chills. Fever was up to 103 F reportedl y. Here, x-ray of the abdomen shows small bowel obs tructive gas pattern. Patient has been evaluated by general surgery. N o surgical interventions currently recommended. Infectious disease consultation is requested for sacral decub ulcer. He is found to have ESBL E coli bacteremia. *Sepsis (fever, tachycardia) *Bacteremia due to anaerobic gram-negative bacil li, likely etiology behind sepsis *Small bowel obstruction, persistent *Sacral decub ulcers, healing *Paraplegia *JENNIFER *Metabolic acidosis *UTI -Continues to have fever spikes; T-max 37.9 degr ess centigrade. -Leukocytosis of 15.4 on today's CBC noted. Over all worsening. -Blood cultures 10/24/2022 positive for ESBL E. coli in 1 out of 2 sets. -Urine culture deemed contaminant due to growth of multiple organisms. -Suspect source of bacteremia is urinary tract. Patient self catheterizes himself, given history of neurogenic bladder. -GI source, given presentation with SBO, is anot her possibility. -Sacral decub ulcers seem to be healing, without obvious signs of infection. Would monitor closely without additional antibio tic treatment for those. -PICC line previously reques kar. However, placement held due to patient's renal function. -Creatinine seems to be improving (1.5 today, do wn from 3.9 previously). -Would revisit placement of PICC line with nephr ology service. -KUB repeated today because of patient's nausea vomiting yesterday. It shows persistent multiple dilated gas-filled small bowel loops consistent with distal small bowel obstruction. -Suspect source of fever spi kes, leukocytosis, nausea and vomiting is persistent small bowel obstruction, which has not resolved. Plan: -Continue meropenem for ESBL E. coli bacteremia. -Plan for a 14-day course of antibiotic treatmen t, with a stop date of 2022. -Request CT abdomen and pelvis without contrast. -Concern for persistent SBO discussed with prima ry service. -Consider reengaging surgical service. -Monitor vitals, fever curve, CBC with different ial. -Continue local wound care. -Optimize nutrition. Discussed with primary service in person. CURRENT ANTIMICROBIALS: Meropenem, started 10/25/2022, planned stop date 11/09/2022 Electronically Signed by Esvin Gomez MD on 11/15 at 1800 RPT #:[id number] END OF REPORT 2022-10-27 15:32:00-00:00 [id number] [address] PATIENT NAME: JORGE GOINS ADMIT DATE: 10/24 ACCOUNT NO: [id number] ROOM NO: [id number] AGE: 37 REPORT TYPE: PROGRESS NOTE SEX: M ADMITTING PHYSICIAN:Reed Lizama MD ATTENDING PHYSICIAN:Reed Lizama MD DATE: 10/27/2022 SUBJECTIVE: Events noted. OBJECTIVE: VITAL SIGNS: Afebrile, pulse 109, respiration 18 , blood pressure 173/71. NECK: Supple. CHEST: Clear. HEART: Normal. SKIN: Examination of wound on the right ischoum stage3 pressure ulcer . Sacrum wound size, no change noted odor not pres ent. left ischium stgae 4 pressure ulcer LABORATORY DATA: Showing sodium 120, pot assium 4.4, chloride 101. WBC is 10.7, hemoglobin 10.6. and platelets are 240. IMPRESSION: Both ischium is getting better. Sacr um wound is also getting better. RECOMMENDATIONS: We will continue current treatm ent and monitor wound. Nutritional support. Wound VAC change Monday, We and Monday. Dictated By: Tylor Noland MD Date Dictated: 10/27/2022 15:32:27 Date Transcribed: 10/27/2022 17:39:23 ONDINA/VANCE/MELINDA Receipt ID: [id number] Authenticated and Edited by Tylor Noland MD On 11/01/22 7:16:45 PM Electronically Signed by Tylor Noland MD on 03/18 at 0717 PATIENT NAME: JORGE GOINS [id number] [birth year] 13:46:00-00:00 [facility] ([facility]) Infectious Dis. Progress Note REPORT#:[id number] REPORT STATUS: Signed DATE:10/27/22 TIME: 1346 PATIENT: JORGE GOINS UNIT #: [id number] ROOM/BED: [place] [address] : 86 AGE: 37 SEX: M ATTEND: Reed Lizama MD ADM AUTHOR: Esvin Gomez MD * ALL edits or amendments must be made on the [employer] document * Subjective Chief complaint: Follow-up on ESBL E coli bacteremia. HPI: Subjectively, reports feeling a little better. D enies nausea or vomiting. Denies acute or new complaints. No major overnig ht events. Objective General VS/I O: Vital Signs Date Temp Pulse Resp B/P B/P Mean Pulse Ox FiO2 10/26-10/27 98.2-100.2 101-124 14-28 128-154/59- 79 0.0-107 97-100 Last Documented: Result Date Time Pulse Ox 98 10/27 1228 B/P 140/71 / 1228 B/P Mean 0.0 10/27 1228 O2 Delivery Room air 10/27 1228 Temp 98.8 10/27 1228 Pulse 109 10/27 1228 Resp 18 10/27 1228 Vital Signs: Date Time Temp Pulse Resp B/P B/P Pulse O2 O2 F low FiO2 Mean Ox Delivery Rate 10/27 1228 98.8 109 18 140/71 0.0 98 Room air 10/27 0824 100.2 124 18 141/78 0.0 99 Room air 10/27 0520 99.5 112 14 154/73 0.0 99 / 0015 98.2 101 20 132/63 0.0 100 10/26 2100 121 142/59 92 99 10/26 2051 100.0 120 15 149/67 0.0 99 10/26 2013 122 28 151/79 107 97 / 1611 99.5 119 15 128/71 0.0 100 24 hour I O ending at 0700: 10/27 0700 10/26 1900 Intake Total 100 200 Output Total 750 2000 Balance -650 -1800 Intake, Oral 100 200 Number 1 Incontinent Voids Output, Stool 300 Output, Urine 750 1700 PATIENT WEIGHT: Weight (lb): Weight (oz): Weight (kg): 100.000 Physical Exam General appearance: alert, awake, no acute distr ess Cardiovascular: normal heart sounds, regular rat e rhythm, no murmur Respiratory: clear to auscultation, aerating wel l, symmetric expansion Abdomen: non-tender, soft, no distention Extremities: no cyanosis, no edema 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, oriented X 3, paraplegia Considered stroke alert: no Skin: dry, no rash, has know n sacral decub ulcers; they were examined yesterday; not directly examined today Psychiatry: normal affect, normal mood Diagnosis, Assessment Plan Free Text A P: Assessment: Mr. 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 Patient self catheterizes himself. He also developed a sacral decub ulcer around 2 years ag o, which seems to be slowly healing. [facility] and came to the ED with nausea, vomiting , fever, chills. Fever was up to 103 F reportedl y. Here, x-ray of the abdomen shows small bowel obs tructive gas pattern. Patient has been evaluated by general surgery. N o surgical interventions currently recommended. Infectious disease consultation is requested for sacral decub ulcer. He is found to have ESBL E coli bacteremia. *Sepsis (fever, tachycardia) *Bacteremia due to anaerobic gram-negative bacil li, likely etiology behind sepsis *Small bowel obstruction, improving *Sacral decub ulcers, healing *Paraplegia *JENNIFER *Metabolic acidosis *UTI -Continues to have fever spikes; T-max 38.9 degr ess centigrade. -Normal WBC count. -Blood cultures 10/24/2022 positive for ESBL E. coli in 1 out of 2 sets. -Urine culture deemed contaminant due to growth of multiple organisms. -Suspect source of bacteremia is urinary tract. Patient self catheterizes himself, given history of neurogenic bladder. -GI source, given presentation with SBO, is anot her possibility. -Sacral decub ulcers seem to be healing, without obvious signs of infection. Would monitor closely without additional antibio tic treatment for those. -Cannot get a PICC line due to renal function. -Renal function was improving as of yesterday. T handy's creatinine not available. Plan: -Continue meropenem for ESBL E. coli bacteremia. -Plan for a 14-day course of antibiotic treatmen t, with a stop date of 2022. -Monitor vitals, fever curve, CBC with different ial. -If patient continues to have fever spik es, would change antibiotic treatment. -Continue local wound care. -Optimize nutrition. -Management of SBO as per surgery. -Would continue to monitor creatinine. If improv es, would consider revisiting PICC line placement. -However, if creatinine remains elevated, would consider finishing antibiotic course either with an oral agent (such as Augmen tin; since ESBL E. coli is Augmentin sensitive) versus getting a central li ne. Discussed with nephrology service (Dr. Caraballo) yes terday. CURRENT ANTIMICROBIALS: Meropenem, started 10/25/2022, planned stop date 11/09/2022 Electronically Signed by Esvin Gomez MD on 10/16 at 1354 RPT #:[id number] END OF REPORT 2022-10-27 12:39:00-00:00 [facility] ([facility]) Hospitalist Progress Note REPORT#:[id number] REPORT STATUS: Signed DATE:10/27/22 TIME: 1239 PATIENT: JORGE GOINS UNIT #: [id number] ROOM/BED: [place] [address] : 86 AGE: 37 SEX: M ATTEND: Reed iLzama MD ADM AUTHOR: Reed Lizama MD * ALL edits or amendments must be made on the [employer]/computer document * Subjective Chief complaint: NOT BETTER YET DUE TO FEVER, INFORMED OF TRT PLAN., CAN GO TO TELE, PER NURSE, HR 100-120. HPI: Patient reports not much change overnight, stephanie nues to have back pain and shoulder pains, liquid stools. No overnight even t noted. Plan to challenge oral diet, on clears today. Objective General Medications: Active Meds + DC'd Last 24 Hrs Sodium Chloride (SODIUM CHLORIDE) 10 ML BID IV Meropenem (MEROPENEM) 500 MG Q6H IV Sterile Water (WATER FOR INJECTION) 10 ML Sodium Chloride (SODIUM CHLORIDE) 10 ML ASDIR ND N IV Sodium Bicarbonate (SODIUM BICARBONATE) 150 ML B OLUS ONCE ONE IV (DC) Dextrose/Water (DEXTROSE 5% WATER) 1,000 ML Potassium Chloride (POTASSIUM CHLORIDE 20MEQ TAB .ER) 40 MEQ DAILY PRN PRN PO Heparin Sodium (HEPARIN 5000 UNITS/ML) 5,000 UNI T Q12HR SUBQ Acetaminophen (TYLENOL) 650 MG Q4H PRN PRN PO Hydrocodone Bitart/Acetaminophen (NORCO 5/325) 1 TAB Q6H PRN PRN PO Morphine Sulfate (morphine SULFATE) 4 MG Q4H PRN PRN IV Ondansetron HCl (ZOFRAN) 4 MG Q4H PRN PRN IV Temazepam (RESTORIL) 15 MG BEDTIME PRN PRN PO Physical Exam General appearance: chronically ill appearing, o bese, alert, awake Neck: no JVD Cardiovascular: normal heart sounds, regular rat e rhythm Abdomen: non-tender, normal bowel sounds, soft, no distention Extremities: no edema Musculoskeletal: muscle wasting 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, oriented X 3, normal speech, P ARAPLEGIA Considered stroke alert: no Skin: dry Wound/incision: Location: WOUND VAC IN PLACE Ulcer: Type/cause: pressure Duration: chronic Location: sacral region Stage: 4 Gangrene present: no Psychiatry: normal affect, normal judgment/insig ht Diagnosis, Assessment Plan Problem List/A P: 1. Paraplegia 2. SBO (small bowel obstruction) 3. Osteomyelitis Consultants: infectious disease, surgery Free Text DxA P Notes Free text DxA P notes: 37-year-old, with history of fentanyl OD, cardia c arrest, paraplegia, and ascending thoracic aneurysm repair neurogenic bl adder, and chronic sacral decubitus ulcer is admitted with SBO, and UTI. #ILEUS, NOT SBO, Noted on CT - RESOLVED, GOOD BM , GS SEEN -Started on IV fluids n.p.o. General surgery consulted, and evaluated patien t, had large bowel movement during eval. We will advance diet as tolerated, start on evette ars today Continue symptomatic care Follow labs daily #Chronic sacral decubitus ulcer - NOW ON ON VAC, WC SEE Consulted ID/wound care/general surgery to eval uate Continue on cefepime and vancomycin, renally do se #ARF on CRF - BETTER, FROM 3.2 TO 2.4, RENAL SEE N Likely volume depletion, prerenal etiology Continue IV fluids renal ultrasound pending uri ne protein/creatinine, fena Daily labs #Paraplegia FROM CARDIAC ARREST - STABLE #Neurogenic bladder - ON SELF CATH AT HOME #Urinary tract infection WIT H BACTEREMIA WITH E.COLI/ESBL - NOW ON MERREM, VANC, ID SEEN, X 14 DAYS H/O cardiac arrest, Complicated with neurogenic bladder Patient self catheterizes/on condom cath -On cefepime, blood cultures showed ESBL, now st arted on meropenem DVT PX -continue heparin Code full Electronically Signed by Reed Lizama MD on 10/27 at 1243 RPT #:[id number] END OF REPORT 2022-10-27 10:50:00-00:00 [facility] ([facility]) Nephrology Progress Note REPORT#:[id number] REPORT STATUS: Signed DATE:10/27/22 TIME: 1050 PATIENT: JORGE GOINS UNIT #: [id number] ROOM/BED: [place] [address] : 86 AGE: 37 SEX: M ATTEND: Reed Lizama MD ADM AUTHOR: Patrica Caraballo MD * ALL edits or amendments must be made on the [employer]/computer document * Subjective Chief complaint: Nausea/vomiting. 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 He was seen in ER. 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 He denied any recent hematuria or dysuri a or any other systemic complaints. he also denied any orthopnea, cramping, itching, ch patrick of taste, involuntary movements. He denied chronic use of NSAIDs. 10/27 Patient appearing comfortable denying all system ic review. Objective General VS/I O: Vital Signs: Date Time Temp Pulse Resp B/P B/P Pulse O2 O2 F low FiO2 Mean Ox Delivery Rate 10/28 1500 117 25 98 05/05 1400 131 30 98 05/05 1300 133 30 99 05/05 1250 37.9 130 18 130/77 0.0 98 Room air 05/05 1237 127 25 130/77 97 05/05 1200 124 30 05/05 1100 127 98 05/05 1000 126 100 05/05 0904 125 167/87 119 100 05/05 0806 37.2 123 18 123/85 0.0 100 Room air 05/05 0805 126 123/85 100 99 05/05 0700 117 100 05/05 0458 36.8 113 14 150/98 0.0 100 05/05 0454 117 17 150/98 116 98 05/05 0014 36.6 113 13 139/82 0.0 99 05/05 0002 117 139/82 105 100 05/04 2000 107 154/88 115 100 05/04 1950 36.5 106 16 149/79 0.0 100 05/04 1634 37.1 108 18 153/84 0.0 100 Room air 24 hour I O ending at 0700: 05/05 0700 05/04 1900 Intake Total 100 Output Total 50 Balance 50 Intake, Oral 100 Output, Emesis Output, Oral 50 Regurgitation PATIENT WEIGHT: Weight (lb): Weight (oz): Weight (kg): 100.000 Physical Exam General appearance: alert, awake, oriented Head/eyes: atraumatic, EOMI ENT: moist mucous membranes, normal nose Neck: no JVD, no lymphadenopathy Cardiovascular: normal heart sounds, regular rat e and rhythm Respiratory: aerating well, clear to auscultatio n Abdomen: soft, no distention Genitourinary: no bladder distention, no flank p ain Extremities: no edema, no gangrene, no swelling Considered stroke alert: no Ulcer: Type/cause: pressure Duration: chronic Location: sacral region Stage: 4 Gangrene present: no Diagnosis, Assessment Plan Free Text A P: 7-year-old male with known to have paraplegia li ving in detention after he had fentanyl poisoning 3 years ago presenting wi th nausea, vomiting, diarrhea and abdominal pain. He was seen in ER. 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 He denied any recent hematuria or dysuri a or any other systemic complaints. he also denied any orthopnea, cramping, itching, ch patrick of taste, involuntary movements. He denied chronic use of NSAIDs. Neph rology following for: 1. JENNIFER or JENNIFER on CKD. We do not have previous la bs to see if he has prior history of kidney disease from his urina ry retention. Plan is to monitor renal function closely. Keep mean arterial pressure ab ove 65 and avoid nephrotoxic agents. Plan is to follow renal ultrasound. 2. Metabolic acidosis: Most likely secondary to poor renal function. Plan is to change IV fluids from normal saline to IV bic arb. Plan is to monitor closely. 3. Hypovolemia: Plan is to monitor input and out put closely with low-dose IV fluids. 4. Urinary tract infection: Plan is to continue IV antibiotics and monitor renal dosing. 5. Hypocalcemia: Most likely secondary to inflam mation. Plan is to monitor ionized calcium and give calcium IV if low. 5/3 1. JENNIFER or JENNIFER on CKD. We do not have previous la bs to see if he has prior history of kidney disease from his urina ry retention. Plan is to monitor renal function closely. Keep mean arterial pressure ab ove 65 and avoid nephrotoxic agents. Renal ultrasound shows mild hydronephros is on the right side. Renal function stable 2. Metabolic acidosis: Most likely secondary to poor renal function. Plan is to change IV fluids from normal saline to IV bic arb. Plan is to monitor closely. 3. Hypovolemia: Plan is to monitor input and out put closely with low-dose IV fluids. 4. Urinary tract infection: Plan is to continue IV antibiotics and monitor renal dosing. 5. Hypocalcemia: Most likely secondary to inflam mation. Plan is to monitor ionized calcium and give calcium IV if low. 6. Hypokalemia: Plan to monitor and replace as n eeded. / 1. JENNIFER or JENNIFER on CKD. We do not have previous la bs to see if he has prior history of kidney disease from his urina ry retention. Plan is to monitor renal function closely. Keep mean arterial pressure ab ove 65 and avoid nephrotoxic agents. Renal ultrasound shows mild hydronephros is on the right side. Renal function stable 2. Metabolic acidosis: Most likely secondary to poor renal function. patient given IV bicarb, plan to follow labs to see if f urther needed. 3. Hypovolemia: Plan is to monitor input and out put closely with low-dose IV fluids. 4. Urinary tract infection: Plan is to continue IV antibiotics and monitor renal dosing. 5. Hypocalcemia: Most likely secondary to inflam mation. Plan is to monitor ionized calcium and give calcium IV if low. 6. Hypokalemia: Plan to monitor and replace as n eeded. Consultants: infectious disease, surgery Electronically Signed by Patrica Caraballo MD on at 1532 [facility] #:[id number] END OF REPORT 2022-10-26 18:13:00-00:00 [id number] [address] PATIENT NAME: JORGE GOINS ADMIT DATE: 10/24 ACCOUNT NO: [id number] ROOM NO: [facility] [place] AGE: 37 REPORT TYPE: CONSULTATION REPORT SEX: M ADMITTING PHYSICIAN:Reed Lizama MD ATTENDING PHYSICIAN:Reed Lizama MD CONSULTATION DATE: 10/26/2022 REASON FOR CONSULT: Sacrum wound, stage IV press ure ulcer, and left ischium stage IV pressure ulcer, right ischium pressure ulcer. Events noted. OBJECTIVE: VITAL SIGNS: Afebrile. NECK: Supple. CHEST: Clear. HEART: Normal. ABDOMEN: Soft. SKIN: Examination of wound, size, no change. Odo r not present. Wound VAC applied. LABORATORY DATA: Sodium 131, potassium 3.3, chlo ride 104. , calcium 8.8. WBC 9.9, hemoglobin 10.5, platelets are 291. IMPRESSION: Sacrum wound is getting better. Righ t ischium is getting better. The wound is getting better. RECOMMENDATIONS: We will continue current treatm ent and monitor wound. Nutrition support. We will monitor wound closely and progress of infection. Dictated By: Tylor Noland MD Date Dictated: 10/26/2022 18:13:13 Date Transcribed: 10/26/2022 20:20:10 /MARIANNE/PATRICIA/MIGDALIA Receipt ID: [id number] Authenticated by Tylor Noland MD On 023 07:16:03 PM Electronically Signed by Tylor Noland MD on 03/18 at 0716 PATIENT NAME: JORGE GOINS [id number] 8016-[birth year] 16:36:00-00:00 [facility] Nephrology Progress Note REPORT#:[id number] REPORT STATUS: Signed DATE:10/26/22 TIME: 163 PATIENT: JORGE GOINS UNIT #: [id number] ROOM/BED: [place] [address] : 86 AGE: 37 SEX: M ATTEND: Reed Lizama MD ADM AUTHOR: Patrica Caraballo MD * ALL edits or amendments must be made on the [employer] document * Subjective Chief complaint: Nausea/vomiting. 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 He was seen in ER. 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 He denied any recent hematuria or dysuri a or any other systemic complaints. he also denied any orthopnea, cramping, itching, ch patrick of taste, involuntary movements. He denied chronic use of NSAIDs. 10/26 Patient appearing comfortable denying all system ic review. Objective General VS/I O: Vital Signs: Date Time Temp Pulse Resp B/P B/P Pulse O2 O2 F low FiO2 Mean Ox Delivery Rate 10/27 0824 37.9 124 18 141/78 0.0 99 Room air 10/27 0520 37.5 112 14 154/73 0.0 99 / 0015 36.8 101 20 132/63 0.0 100 10/26 2100 121 142/59 92 99 10/26 2051 37.8 120 15 149/67 0.0 99 10/26 2013 122 28 151/79 107 97 / 1611 37.5 119 15 128/71 0.0 100 / 1225 37.3 120 12 143/82 0.0 100 Room air 24 hour I O ending at 0700: 10/27 0700 10/26 1900 Intake Total 100 200 Output Total 750 2000 Balance -650 -1800 Intake, Oral 100 200 Number 1 Incontinent Voids Output, Stool 300 Output, Urine 750 1700 PATIENT WEIGHT: Weight (lb): Weight (oz): Weight (kg): 100.000 Physical Exam General appearance: alert, awake, oriented Head/eyes: atraumatic, EOMI ENT: moist mucous membranes, normal nose Neck: no JVD, no lymphadenopathy Cardiovascular: normal heart sounds, regular rat e and rhythm Respiratory: aerating well, clear to auscultatio n Abdomen: soft, no distention Genitourinary: no bladder distention, no flank p ain Extremities: no edema, no gangrene, no swelling Considered stroke alert: no Ulcer: Type/cause: pressure Duration: chronic Location: sacral region Stage: 4 Gangrene present: no Diagnosis, Assessment Plan Free Text A P: 7-year-old male with known to have paraplegia [place] in detention after he had fentanyl poisoning 3 years ago presenting wi th nausea, vomiting, diarrhea and abdominal pain. He was seen in ER. 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 He denied any recent hematuria or dysuri a or any other systemic complaints. he also denied any orthopnea, cramping, itching, ch patrick of taste, involuntary movements. He denied chronic use of NSAIDs. Neph rology following for: 1. JENNIFER or JENNIFER on CKD. We do not have previous la bs to see if he has prior history of kidney disease from his urina ry retention. Plan is to monitor renal function closely. Keep mean arterial pressure ab ove 65 and avoid nephrotoxic agents. Plan is to follow renal ultrasound. 2. Metabolic acidosis: Most likely secondary to poor renal function. Plan is to change IV fluids from normal saline to IV bic arb. Plan is to monitor closely. 3. Hypovolemia: Plan is to monitor input and out put closely with low-dose IV fluids. 4. Urinary tract infection: Plan is to continue IV antibiotics and monitor renal dosing. 5. Hypocalcemia: Most likely secondary to inflam mation. Plan is to monitor ionized calcium and give calcium IV if low. 5/3 1. JENNIFER or JENNIFER on CKD. We do not have previous la bs to see if he has prior history of kidney disease from his urina ry retention. Plan is to monitor renal function closely. Keep mean arterial pressure ab ove 65 and avoid nephrotoxic agents. Renal ultrasound shows mild hydronephros is on the right side. Renal function stable 2. Metabolic acidosis: Most likely secondary to poor renal function. Plan is to change IV fluids from normal saline to IV bic arb. Plan is to monitor closely. 3. Hypovolemia: Plan is to monitor input and out put closely with low-dose IV fluids. 4. Urinary tract infection: Plan is to continue IV antibiotics and monitor renal dosing. 5. Hypocalcemia: Most likely secondary to inflam mation. Plan is to monitor ionized calcium and give calcium IV if low. 6. Hypokalemia: Plan to monitor and replace as n eeded. Consultants: infectious disease, surgery Electronically Signed by Patrica Caraballo MD on at 1050 RPT #:[id number] END OF REPORT 2022-10-26 11:22:00-00:00 [facility] ([facility]) Infectious Dis. Progress Note REPORT#:[id number] REPORT STATUS: Signed DATE:10/26/22 TIME: 1121 PATIENT: JORGE GOINS UNIT #: [id number] ROOM/BED: [place] [address] : 86 AGE: 37 SEX: M ATTEND: Flo Sun MD ADM AUTHOR: Esvin Gomez MD * ALL edits or amendments must be made on the [employer] document * Subjective Chief complaint: Follow-up on ESBL E coli bacteremia. HPI: Subjectively, reports feeling a little better. D enies nausea or vomiting. Denies acute or new complaints. No major overnig ht events. Objective General VS/I O: Vital Signs Date Temp Pulse Resp B/P B/P Mean Pulse Ox FiO2 /-10/26 98.9 122-133 21-29 128-162/61-95 83 -116 93-100 Last Documented: Result Date Time Pulse Ox 100 05/ 1000 B/P 134/62 05/03 1000 B/P Mean 86 05/03 1000 Pulse 126 05/03 1000 Resp 21 05/03 1000 O2 Delivery Room air 05/ 0800 Temp 98.9 05/03 0800 Vital Signs: Date Time Temp Pulse Resp B/P B/P Pulse O2 O2 Flow FiO2 Mean Ox Delivery Rate 05/03 1000 126 21 134/62 86 100 05/03 0800 98.9 122 22 128/61 83 99 Room air 05/03 0700 124 21 130/63 85 99 Room air 05/03 0300 132 29 129/74 95 98 05/03 0200 133 154/75 106 100 05/03 0100 127 28 150/95 116 100 05/03 0000 127 28 148/84 108 93 05/02 2301 100 05/02 2300 132 152/70 100 05/02 2215 133 162/72 104 99 05/02 2000 128 141/64 92 96 05/02 1900 124 147/66 95 93 05/02 1200 124 137/74 98 99 PATIENT WEIGHT: Weight (lb): Weight (oz): Weight (kg): 100.000 Physical Exam General appearance: obese, alert, awake, no acut e distress Cardiovascular: normal heart sounds, regular rat e rhythm, no murmur Respiratory: clear to auscultation, aerating wel l, symmetric expansion Abdomen: non-tender, soft, no distention Extremities: no cyanosis, no edema 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, oriented X 3, paraplegia Considered stroke alert: no Skin: dry, no rash, has know n sacral decub ulcers; they were examined yesterday; not directly examined today Psychiatry: normal affect, normal mood Diagnosis, Assessment Plan Free Text A P: Assessment: Mr. 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 Patient self catheterizes himself. He also developed a sacral decub ulcer around 2 years ag o, which seems to be slowly healing. [facility] is a [facility] and came to the ED with nausea, vomiting , fever, chills. Fever was up to 103 F reportedl y. Here, x-ray of the abdomen shows small bowel obs tructive gas pattern. Patient has been evaluated by general surgery. N o surgical interventions currently recommended. Infectious disease consultation is requested for sacral decub ulcer. He is found to have ESBL E coli bacteremia. *Sepsis (fever, tachycardia) *Bacteremia due to anaerobic gram-negative bacil li, likely etiology behind sepsis *Small bowel obstruction, improving *Sacral decub ulcers, healing *Paraplegia *JENNIFER *Metabolic acidosis *UTI -Afebrile. -Normal WBC count. -Blood cultures 10/24/2022 positive for ESBL E. coli in 1 out of 2 sets. -Urine culture deemed contaminant due to growth of multiple organisms. Plan: -Started on meropenem yesterday, after notified of ESBL E. coli bacteremia. -Would continue same. Plan for a 14-day course of antibiotic treatment, with a stop date of 11/09/2022. -Patient is a detention resident and can finmartine sh antibiotic treatment over there. -Will request PICC line placement. -Suspect source of bacteremia is urinary tract. Patient self catheterizes himself, given history of neurogenic bladder. -GI source, given presentation with SBO, is anot her possibility. -Sacral decub ulcers seem to be healing, without obvious signs of infection. Would monitor closely without additional antibio tic treatment for those. -Continue local wound care. -Optimize nutrition. -Management of SBO as per surgery. CURRENT ANTIMICROBIALS: Meropenem, started 10/25/2022, planned stop date 11/09/2022 Electronically Signed by Esvin Gomez MD on 09/15 at 1139 RPT #:[id number] END OF REPORT 2022-10-26 08:48:00-00:00 [facility]L [facility] ([facility]) Hospitalist Progress Note REPORT#:[id number] REPORT STATUS: Signed DATE:10/26/22 TIME: 0848 PATIENT: JORGE GOINS UNIT #: [id number] ROOM/BED: [place] [address] : 86 AGE: 37 SEX: M ATTEND: Flo Sun MD ADM AUTHOR: Sandra Sun MD * ALL edits or amendments must be made on the rimidi/computer document * Subjective Chief complaint: TRANSFERRED FROM [facility] ER FOR UTI, SACRAL DECU B, SBO HPI: Patient reports not much change overnight, stephanie nues to have back pain and shoulder pains, liquid stools. No overnight even t noted. Plan to challenge oral diet, on clears today. Review of Systems All systems rev neg: except as noted Free Text ROS Notes Free Text ROS Notes: 12 POINT ROS WERE REVIEWED AND NEGATIVE. Objective General VS/I O: Vital Signs: Date Time Temp Pulse Resp B/P B/P Pulse O2 O2 Flow FiO2 Mean Ox Delivery Rate 10/26 0300 132 29 129/74 95 98 05/ 0200 133 154/75 106 100 05/03 0100 127 28 150/95 116 100 05/03 0000 127 28 148/84 108 93 05/ 2301 100 05/ 2300 132 152/70 100 05/02 2215 133 162/72 104 99 05/02 2000 128 141/64 92 96 05/ 1900 124 147/66 95 93 05/02 1200 124 137/74 98 99 05/02 1100 120 140/64 92 97 05/02 1000 121 28 140/64 92 95 05/02 0900 124 29 145/65 92 98 PATIENT WEIGHT: Weight (lb): Weight (oz): Weight (kg): 100.000 Medications: Active Meds + DC'd Last 24 Hrs Vancomycin HCl (Vancomycin 1,250 mg Inj (B2)) 1, 250 MG ONCE ONE IV (CAN) Sodium Chloride (SODIUM CHLORIDE 0.9%) 250 ML Meropenem (MEROPENEM) 500 MG Q8H IV Sterile Water (WATER FOR INJECTION) 10 ML Metronidazole (FLAGYL) 500 MG Q8H PO (CAN) Dextrose/Water (DEXTROSE 5% WATER) 1,000 ML .Q13 H20M IV Heparin Sodium (HEPARIN 5000 UNITS/ML) 5,000 UNI T Q12HR SUBQ Cefepime HCl (MAXIPIME) 1 GM Q12H IV (DC) Sodium Chloride (SODIUM CHLORIDE) 10 ML Miscellaneous Information (VANCOMYCIN PHARMACY T O DOSE) 1 EACH ASDIR IV (DC) Acetaminophen (TYLENOL) 650 MG Q4H PRN PRN PO Hydrocodone Bitart/Acetaminophen (NORCO 5/325) 1 TAB Q6H PRN PRN PO Morphine Sulfate (morphine SULFATE) 4 MG Q4H PRN PRN IV Ondansetron HCl (ZOFRAN) 4 MG Q4H PRN PRN IV Sodium Chloride (SODIUM CHLORIDE 0.9%) 1,000 ML .Q10H IV (DC) Temazepam (RESTORIL) 15 MG BEDTIME PRN PRN PO Dietitian nutrition assessment The data set between the solid lines has been im ported from the dietitian's assessment. BMI Calculated: 30.7 Nutrition related diagnosis: Nutrition diagnosis details: Nutrition problem: Nutrition etiology: Nutrition signs and symptoms: Nutrition prescription: Dietitian name: Assessment completed: Physical Exam General appearance: alert, awake, oriented ENT: moist mucosal membranes Neck: no JVD Cardiovascular: normal heart sounds, regular rat e rhythm Abdomen: non-tender, normal bowel sounds, soft, no distention Extremities: no edema Musculoskeletal: muscle wasting 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, oriented X 3, normal speech, P ARAPLEGIA Considered stroke alert: no Skin: dry Ulcer: Type/cause: pressure Duration: chronic Location: sacral region Stage: 4 Gangrene present: no Psychiatry: normal affect, normal judgment/insig ht Results Findings/Data: Laboratory Tests 10/26 509 Chemistry Sodium (134 - 147 mEq/L) 134 Potassium (3.4 - 5.0 mEq/L) 3.3 L Chloride (100 - 108 mEq/L) 104 Carbon Dioxide (21 - 33 mEq/l) 15 L Anion Gap (0 - 20) 18 BUN (7 - 18 mg/dL) 44 H Creatinine (0.6 - 1.3 mg/dL) 2.1 H Glomerular Filtr Rate (105 - 110) 41.1 L Glucose (70 - 110 mg/dL) 123 H Calcium (8.0 - 10.5 mg/dL) 8.8 Laboratory Tests 10/26 509 Hematology WBC (4.5 - 11.0 x10 3/uL) 9.9 RBC (4.00 - 5.60 x10 6/uL) 3.65 L Hgb (12.5 - 16.9 g/dL) 10.5 L Hct (37.5 - 50.7 %) 32.4 L MCV (81.0 - 99.0 fL) 88.8 MCH (27.0 - 33.0 pg) 28.8 MCHC (33.0 - 37.0 g/dL) 32.4 L RDW (11.5 - 14.5 %) 16.6 H Plt Count (150 - 400 x10 3/uL) 291 MPV (7.0 - 9.0 fL) 11.0 H Neut % (Auto) (56.0 - 77.0 %) 82.3 H Lymph % (Auto) (14.0 - 32.0 %) 9.6 L Citrus % (Auto) (4.8 - 9.0 %) 6.1 Eos % (Auto) (0.3 - 3.7 %) 1.3 Baso % (Auto) (0.0 - 2.0 %) 0.2 Neut # (Auto) (2.0 - 7.6 x10 3/uL) 8.15 H Lymph # (Auto) (1.0 - 3.8 x10 3/uL) 0.95 L Citrus # (Auto) (0.1 - 0.8 x10 3/uL) 0.60 Eos # (Auto) (0.0 - 0.2 x10 3/uL) 0.13 Baso # (Auto) (0.0 - 0.2 x10 3/uL) 0.02 Abs Immat Gran (auto) (0.00 - 0.03 x10 3/uL) 0 .05 H Add Manual Diff NO Immature Gran % (0.0 - 2.0 %) 0.5 Nucleated RBC % (0 - 0 %) 0.0 Nucleated RBCs # (Man) (0.0 - 0.1 x10 3/uL) 0.0 0 Laboratory Tests 10/25 2301 Toxicology Random Vancomycin (mcg/mL) 11.3 Diagnosis, Assessment Plan Problem List/A P: 1. Paraplegia 2. SBO (small bowel obstruction) 3. Osteomyelitis Consultants: infectious disease, surgery Free Text DxA P Notes Free text DxA P notes: 37-year-old, with history of fentanyl OD, cardia c arrest, paraplegia, and ascending thoracic aneurysm repair neurogenic bl adder, and chronic sacral decubitus ulcer is admitted with SBO, and UTI. #SBO Noted on CT -Started on IV fluids n.p.o. General surgery consulted, and evaluated patien t, had large bowel movement during eval. We will advance diet as tolerated, start on evette ars today Continue symptomatic care Follow labs daily #Chronic sacral decubitus ulcer Consulted ID/wound care/general surgery to eval uate Continue on cefepime and vancomycin, renally do se #ARF on CRF Likely volume depletion, prerenal etiology Continue IV fluids renal ultrasound pending uri ne protein/creatinine, fena Daily labs #Paraplegia #Neurogenic bladder #Urinary tract infection Secondary to cardiac arrest Complicated with neurogenic bladder Patient self catheterizes/on condom cath -On cefepime, blood cultures showed ESBL, now st arted on meropenem -ID consulted and following DVT PX -continue heparin Code full at 1356 RPT #:[id number] END OF REPORT 2022-10-25 18:38:00-00:00 [id number] [address] PATIENT NAME: JORGE GOINS ADMIT DATE: 10/24 ACCOUNT NO: [id number] ROOM NO: 6609 AGE: 37 REPORT TYPE: CONSULTATION REPORT SEX: M ADMITTING PHYSICIAN:Reed Lizama MD ATTENDING PHYSICIAN:Reed Lizama MD CONSULTATION DATE: 10/26/2022 REASON FOR CONSULTATION: 1. Sacrum stage IV pressure ulcer. 2. Left ischium stage IV pressure ulcer. 3. Right ischium stage II pressure ulcer. HISTORY OF PRESENT ILLNESS: This is a 37-year-ol d patient who has significant history of fentanyl overdose in 2018, cardiac ar rest. The patient history debridemnt . The patient cannot care for himself . He is in a detention, came here, wound. The patient was comfortable. D enies any pain. PAST MEDICAL HISTORY: Congestive heart failure, hypertension, dissection of aorta. FAMILY HISTORY: Noncontributory. REVIEW OF SYSTEMS: Denies chest pain or abdomina l pain. PHYSICAL EXAMINATION: GENERAL: The patient is comfortable, not agitate d. VITAL SIGNS: Temperature 99.5, pulse 124, blood pressure 130/74. NECK: Supple. CHEST: Clear. HEART: Normal. SKIN: Examination of wound, sacrum stage IV pressure ulcer, size 2 x 1 x 2 cm, exposed bone. The patient's wound on the left is chium size 4 x 3 cm x 2 cm stage IV pressure ulcer to b one, right ischium stage IV pressure ulcer, 3 cm x 2 cm. LABORATORY DATA: Labs showing sodium 134, potass ium 4.2, chloride 108, CO2 of 14. WBC 9.6, hemoglobin 10.3 and platelets are 2 60. IMPRESSION: 1. Sacrum wound stage IV pressure ulcer. 2. Left ischium stage IV pressure ulcer. 3. Right ischium stage II pressure ulcer. RECOMMENDATIONS: Left ischium, use wound VAC, pr essure 125. Start wound VAC tomorrow, right now us eaquacel dressing all wou nd s dressing, air mattress, prealbumin in the morning. Nutritional support. Dictated By: Tylor Noland MD PATIENT NAME: JORGE GOINS [id number] Date Dictated: 10/25/2022 18:38:52 Date Transcribed: 10/25/2022 21:50:41 ONDINA/ARY/PATRICIA/MIGDALIA Receipt ID: [id number] Authenticated and Edited by Tylor Noland MD On 11/01/22 7:16:00 PM Electronically Signed by Tylor Noland MD on 03/18 at 0717 PATIENT NAME: JORGE GOINS [id number] 5215-05-[birth year] 15:51:00-00:00 [facility]L [facility] ([facility]) Infect Disease Consult Note REPORT#:[id number] REPORT STATUS: Signed DATE:10/25/22 TIME: 1551 PATIENT: JORGE GOINS UNIT #: [id number] ROOM/BED: [place] [address] : 86 AGE: 37 SEX: M ATTEND: Flo uSn MD ADM AUTHOR: Esvin Gomez MD * ALL edits or amendments must be made on the rimidi/computer document * History of Present Illness Requesting Clinician: Reed Zimmer Reason for consult: Sacral decub ulcer, stage IV, with osteomyelitis , paraplegia HPI: Mr. 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 Patient self catheterizes himself. He also developed a sacral decub ulcer around 2 years ag o, which seems to be slowly healing. [facility] and came to the ED yesterday with nausea , vomiting, fever, chills. Fever was up to 103 F reportedly. Here, patient has been afebrile, althoug h tachycardic. He has had a normal WBC count. Lactate was normal. X-ray of the abdomen shows small bowel obstructive gas pattern. Patient has been evaluated by general surgery. N o surgical interventions currently recommended. Patient has been started on clear liquid diet. Infectious disease consultation is requested for sacral decub ulcer. Blood cultures obtained yesterday are positive for anaerobic gram-negative bacilli in 1 out of 2 sets (1 out of 4 bottles). Patient is currently on cefepime and vancomycin. History - Adult longitudinal Past medical history: Reports: Congestive heart fa ilure, Hypertension. Denies: Kidney disease/stones. Additional medical history: type B dissection s/p TEVAR, HTN Past surgical history: Reports: Cholecystectomy. Additional surgical history: TEVAR, TAYLA, THORACIC AOTIC ANEURYSM RUPTURE WI TH REPAIR Family history: Reports: Diabetes, Hypertension. Additional family history: Mother alive history of diabetes hypertension Father unknown Alcohol use: Denies EtOH use Drug use: Denies recreational drugs Smoking status for patients 13 years old or olde r: Never Smoker Other social history: Unemployed, Local resident , Good social support Additional social history: single he works in [employer] he denies any alcoh ol use or tobacco use PREVIOUSLY WORKED FOR [employer], NOW DISABLED. Allergies: Coded Allergies: Iodine and Iodide Containing Produc (Severe, HIV ES 11/19/19) shellfish derived (Intermediate, RASH 11/19/19) Review of Systems Free Text ROS Notes Free Text ROS Notes: A 12-point review of systems was performed and t he pertinent positives and negatives are detailed in HPI. Review of systems is negative otherwise. Objective General VS/I O: Vital Signs Date Temp Pulse Resp B/P B/P Mean Pulse Ox FiO2 /-10/25 99.5-99.8 112-127 17-29 107-163/51-8 5 70-111 95-100 Last Documented: Result Date Time Pulse Ox 99 05/02 1200 B/P 137/74 05/02 1200 B/P Mean 98 05/02 1200 Pulse 124 05/02 1200 Resp 28 05/02 1000 Temp 99.5 05/02 0600 O2 Delivery Room air 10/24 2100 Vital Signs: Date Time Temp Pulse Resp B/P B/P Pulse O2 O2 Flow FiO2 Mean Ox Delivery Rate 05/02 1200 124 137/74 98 99 05/02 1100 120 140/64 92 97 05/02 1000 121 28 140/64 92 95 05/02 0900 124 29 145/65 92 98 05/02 0800 124 156/72 104 98 05/02 0700 119 163/75 108 99 05/02 0645 119 161/85 111 100 05/02 0615 121 153/77 105 100 05/02 0600 99.5 120 19 147/73 101 99 05/02 0545 119 146/68 98 99 05/02 0530 119 142/70 98 99 05/02 0515 115 25 136/72 97 98 05/02 0500 116 18 135/72 96 98 05/02 0430 116 142/68 95 98 05/02 0400 117 17 144/66 95 98 05/02 0330 118 158/73 102 99 05/02 0300 115 18 142/63 91 99 05/02 0200 118 19 149/79 103 100 05/02 0130 117 124/59 85 99 05/02 0115 116 120/58 83 98 05/02 0100 117 20 125/60 86 100 05/02 0030 115 120/62 83 97 05/02 0000 99.6 112 18 125/59 85 99 05/01 2345 117 117/53 77 100 05/01 2330 116 107/56 78 98 05/01 2315 117 109/52 75 95 05/01 2300 112 19 117/58 83 100 05/01 2245 119 115/59 79 100 05/01 2230 115 20 107/51 70 95 05/01 2200 118 22 116/56 81 100 05/01 2130 121 21 110/57 77 96 05/01 2115 127 122/68 86 97 05/01 2100 99.8 126 17 120/64 82 98 Room air 24 hour I O ending at 0700: 05/02 0700 05/01 1900 Intake Total Output Total Balance Patient 100 kg Weight Weight Stated/Reported Measurement Method PATIENT WEIGHT: Weight (lb): Weight (oz): Weight (kg): 100.000 Physical Exam General appearance: alert, awake, no acute distr ess Wound/incision: Location: has few sacral debub ulcers, with granulation tissue in base and no active signs of infection; ulcers are healing over last 1-2 y ears, per patient Head/Eyes: atraumatic, normocephalic Neck: supple/no meningismus, no JVD Cardiovascular: normal heart sounds, regular rat e rhythm, no murmur Respiratory: clear to auscultation, aerating wel l, symmetric expansion Abdomen: non-tender, soft, no distention Extremities: no cyanosis, no edema 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, oriented X 3, paraplegia Skin: dry, no rash Psychiatry: normal affect, normal mood Results Findings/Data: Laboratory Tests 10/25 2150 Chemistry Sodium (134 - 147 mEq/L) 136 133 L Potassium (3.4 - 5.0 mEq/L) 4.2 4.4 Chloride (100 - 108 mEq/L) 108 101 Carbon Dioxide (21 - 33 mEq/l) 14 L 13 L Anion Gap (0 - 20) 19 23 H BUN (7 - 18 mg/dL) 60 H 62 H Creatinine (0.6 - 1.3 mg/dL) 3.3 H 3.9 H Glomerular Filtr Rate (105 - 110) 23.9 L 19.5 L Glucose (70 - 110 mg/dL) 74 69 L Lactic Acid (0.4 - 1.9 mmol/L) 1.8 Calcium (8.0 - 10.5 mg/dL) 7.5 L 8.2 Total Bilirubin (0.0 - 1.0 mg/dL) 0.60 Direct Bilirubin (0.0 - 0.30 MG/DL) 0.30 Indirect Bilirubin (MG/DL) 0.30 AST (15 - 37 IUnit/L) 27 ALT (30 - 65 IUnit/L) 12 L Total Alk Phosphatase (20 - 125 IUnit/L) 107 Troponin I High Sens (0 - 54 ng/L) 6 Total Protein (6.4 - 8.2 g/dL) 7.8 Albumin (3.4 - 5.0 g/dL) 3.60 Triglycerides (40 - 150 mg/dL) 271 H Cholesterol (<200 mg/dL) 134 LDL Cholesterol Measurd (0 - 100 mg/dL) 34.0 HDL Cholesterol (32 - 72 mg/dL) 20.5 L Cholesterol/HDL Ratio (3.43 - 4.97 RATIO) 6.54 H TSH (0.42 - 5.47 IU/mL) 2.13 Laboratory Tests 10/25 Hematology WBC (4.5 - 11.0 x10 3/uL) 9.6 10.7 RBC (4.00 - 5.60 x10 6/uL) 3.45 L 3.69 L Hgb (12.5 - 16.9 g/dL) 10.3 L 10.6 L Hct (37.5 - 50.7 %) 31.6 L 34.5 L MCV (81.0 - 99.0 fL) 91.6 93.5 MCH (27.0 - 33.0 pg) 29.9 28.7 MCHC (33.0 - 37.0 g/dL) 32.6 L 30.7 L RDW (11.5 - 14.5 %) 17.0 H 16.4 H Plt Count (150 - 400 x10 3/uL) 260 240 MPV (7.0 - 9.0 fL) 10.2 H 11.0 H Neut % (Auto) (56.0 - 77.0 %) 82.6 H 83.4 H Lymph % (Auto) (14.0 - 32.0 %) 9.7 L 8.7 L Citrus % (Auto) (4.8 - 9.0 %) 6.1 6.6 Eos % (Auto) (0.3 - 3.7 %) 0.8 0.3 Baso % (Auto) (0.0 - 2.0 %) 0.2 0.3 Neut # (Auto) (2.0 - 7.6 x10 3/uL) 7.88 H 8.91 H Lymph # (Auto) (1.0 - 3.8 x10 3/uL) 0.93 L 0.93 L Citrus # (Auto) (0.1 - 0.8 x10 3/uL) 0.58 0.70 Eos # (Auto) (0.0 - 0.2 x10 3/uL) 0.08 0.03 Baso # (Auto) (0.0 - 0.2 x10 3/uL) 0.02 0.03 Abs Immat Gran (auto) (0.00 - 0.03 x10 3/uL) 0. 06 H 0.08 H Add Manual Diff NO NO Immature Gran % (0.0 - 2.0 %) 0.6 0.7 Nucleated RBC % (0 - 0 %) 0.0 0.0 Nucleated RBCs # (Man) (0.0 - 0.1 x10 3/uL) 0.0 0 0.00 Laboratory Tests 10/25 05 0200 0200 Urines Urine Color (YEL/STRAW) YELLOW Urine Appearance (CLEAR) CLOUDY H Urine pH (5.0 - 7.0) 5.0 Ur Specific Commerce (1.005 - 1.030) 1.016 Urine Protein (NEGATIVE) 2+ H Urine Glucose (UA) (NEGATIVE) NEGATIVE Urine Ketones (NEGATIVE) TRACE H Urine Blood (NEGATIVE) 3+ H Urine Nitrite (NEGATIVE) NEGATIVE Urine Bilirubin (NEGATIVE) NEGATIVE Urine Urobilinogen (0.2 - 1.0 mg/dL) 0.2 Ur Leukocyte Esterase (NEGATIVE) 2+ H Urine RBC (0 - 3 RBC/HPF) >50 H Urine WBC (0 - 3 WBC/HPF) >50 H Ur Squamous Epith Cells (NONE SEEN /HPF) NONE S EEN Urine Bacteria (NONE SEEN /HPF) 4+ H Urine Mucus (NONE SEEN /LPF) 2+ H Ur Random Creatinine (mg/dL) 147.5 U Random Total Protein (mg/dL) 221 Ur Random Sodium (MEQ/L) 37 Protein/Creatinin Ratio 1.50 Radiology data: Recent Impressions: RADIOLOGY - XR ABDOMEN 1V (KUB) 10/25 2051 Report Impression - Status: SIGNED Entered: 10/24/20222125 IMPRESSION: Small bowel obstructive gas pattern. Impression By: [email or web address] - Martin Burrell M.D. RADIOLOGY - XR CHEST 1 V 10/25 2051 Report Impression - Status: SIGNED Entered: 10/24/20222102 IMPRESSION: No acute cardiopulmonary findings. Impression By: [email or web address] - King Dent M.D. ULTRASOUND - US RETROPERITONEAL COM 10/25 652 Report Impression - Status: SIGNED Entered: 10/25/2022 0906 IMPRESSION: Mild right hydronephrosis. Impression By: [email or web address] Madhu Benavides Diagnosis, Assessment Plan Free Text DxA P Notes Free text DxA P notes: Assessment: Mr. Goins is a 37-year-old male with: *Sepsis (fever, tachycardia) *Bacteremia due to anaerobic gram-negative bacil li, likely etiology behind sepsis *Small bowel obstruction, improving *Sacral decub ulcers, healing *Paraplegia *JENNIFER *Metabolic acidosis *UTI Plan: -Discontinue vancomycin. -Continue empiric cefepime for now. -Add metronidazole for anaerobic coverage. -Follow identification and susceptibilities on t he gram-negative bacilli isolated from blood cultures. -Follow urine culture results. -Sacral decub ulcers seem to be healing, without obvious signs of infection. Would monitor closely without additional antibio tic treatment for those. -Continue local wound care. -Optimize nutrition. -Management of SBO as per surgery. It seems to b e improving. No surgical interventions currently planned. Thank you for the consult. We will follow the hedy sethi with you. Electronically Signed by Esvin Gomez MD on 08/18 at 1645 RPT #:[id number] END OF REPORT 2022-10-25 14:54:00-00:00 HCACL [facility] ([facility] Pharmacy Prog.Note-Vancomycin REPORT#:[id number] REPORT STATUS: Signed DATE:10/25/22 TIME: 1454 PATIENT: JORGE GOINS UNIT #: [id number] ROOM/BED: [place] [address] : 86 AGE: 37 SEX: M ATTEND: Сергей Sun MD ADM AUTHOR: Mike Adam RP h * ALL edits or amendments must be made on the [employer]idi[employer] document * Vancomycin Vancomycin Medication Therapy Goal: trough 10-15 mcg/mL Indication for treatment: Sacral ulcer Current therapy: Medication(s) Ordered: Anti-Infective Agents Sig/Ronan Start time Last Medication Dose Route Stop Time Status Admin Vancomycin HCl 1,000 MG ONCE ONE 10/25 0130 AC Sodium Chloride 250 ML IV 10/25 0229 Cefepime HCl 1 GM Q12H 10/25 0100 AC Sodium Chloride 10 ML IV 10/30 0059 Piperacillin Sod/ 3.375 GM X1ED STA 10/24 2030 DC 10/24 Tazobactam Sod IV 10/24 2100 2215 Sodium Chloride 100 ML Vancomycin HCl 1,000 MG X1ED STA 10/24 2030 DC 10/24 Sodium Chloride 250 ML IV 10/24 2130 2339 Day of therapy: Day 2 Weight: Actual weight (kg): 100 VS and I/O: Vital Signs Date Temp Pulse Resp B/P B/P Mean Pulse Ox FiO2 10/24-10/25 99.5-99.8 112-127 17-29 107-163/51-8 5 70-111 95-100 72 hours ending at 0700 10/25 19010/24 07 1900 Intake Total Output Total Balance Patient 100 kg Weight Weight Stated/Rep orted Measuremen t Method 72 Hour I O Total 10/25 07 Intake Total Output Total Balance Labs: Laboratory Test : 10/25 10/24 0620 2150 Chemistry BUN (7 - 18 mg/dL) 60 H 62 H Creatinine (0.6 - 1.3 mg/dL) 3.3 H 3.9 H Hematology WBC (4.5 - 11.0 x10 3/uL) 9.6 10.7 Microbiology: 10/25 199 URINE: Urine Culture - RECD 10/24 2146 BLOOD: Blood Culture - RECD 10/24 2144 BLOOD: Blood Culture - RECD Treatment plan: consult, cont current regimen/do se Regimen: HPI: 37-year-old male, paraplegic, with past med ical history of type B dissection s/p TEVAR, potent ial cord infarct, also with acute ischemic strokes, suspect known Bolick source, and PEA arrest in . Pt was in usual health until 2 days ago when he noted generaliz ed abd pain with n/v/d and fever up to 103F. Concern for sepsis, pt started on abx. Pha tania consulted to dose vancomycin. Consulting provider: Reed Lizama MD Indication: Sacral decubitus ulcer Goal: trough 10-15 mcg/mL 10/25 A P * Labs/vitals: WBC: 9.6, Tmax 99.8F, Pulse 124 * Renal: BUN/Scr: 60/3.3, eCrcl: 37 ml/min (Adj. BW), UOP: None documented * Micro: 10/24 BC Pending, 10/25 UC Pending * Imagin/01 Chest X-Ray: No consolidation * Assessment/Plan: Day 2: LD of 2000 mg x once 20 mg/kg. Due to unstable renal function, will dose by level. Scheduled 24-hour vancomycin trough level for tonight at 23:00. Re-dose per level resu lts. Nephrology closely monitoring the patient. Will [facility] off to [facility] shift lead. pharmacy will continue to monitor. at 1457 RPT #:[id number] END OF REPORT 2022-10-25 11:20:00-00:00 [facility]ACL [facility] ([facility]) Nephrology Consultation Note REPORT#:[id number] REPORT STATUS: Signed DATE:10/25/22 TIME: 1120 PATIENT: OJRGE GOINS UNIT #: [id number] ROOM/BED: [place] [address] : 86 AGE: 37 SEX: M ATTEND: Flo Sun MD ADM AUTHOR: Patrica Caraballo MD * ALL edits or amendments must be made on the rimidi/computer document * History of Present Illness Requesting clinician: Dr Sun Reason for consult: JENNIFER Chief complaint: Nausea/vomiting. 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 He was seen in ER. 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 He denied any recent hematuria or dysuri a or any other systemic complaints. he also denied any orthopnea, cramping, itching, ch patrick of taste, involuntary movements. He denied chronic use of NSAIDs. History - Adult longitudinal Past medical history: Reports: Congestive heart fa ilure, Hypertension. Denies: Kidney disease/stones. Additional medical history: type B dissection s/p TEVAR, HTN Past surgical history: Reports: Cholecystectomy. Additional surgical history: TEVAR, TAYLA, THORACIC AOTIC ANEURYSM RUPTURE WI TH REPAIR Family history: Reports: Diabetes, Hypertension. Additional family history: Mother alive history of diabetes hypertension Father unknown Alcohol use: Denies EtOH use Drug use: Denies recreational drugs Smoking status for patients 13 years old or olde r: Never Smoker Other social history: Unemployed, Local resident , Good social support Additional social history: single he works in [employer] he denies any alcoh ol use or tobacco use PREVIOUSLY WORKED FOR [employer], NOW DISABLED. Allergies: Coded Allergies: Iodine and Iodide Containing Produc (Severe, HIV ES 11/19/19) shellfish derived (Intermediate, RASH 11/19/19) Review of Systems Constitutional: Denies: chills, fatigue, fever. Skin: Denies: laceration, rash. Allergy/Immun: Denies: hives, itching. Eyes: Denies: redness, discharge. ENT: Denies: throat pain, throat swelling. Respiratory: Denies: hemoptysis, non productive cough. Cardiovascular: Denies: chest pain, COATES (dyspnea on exertion). GI: Reports: abdominal pain, diarrhea, nausea. : Reports: urinary retention. Denies: flank pain, hematuria. Musculoskeletal: Denies: extremity pain, extremity swelling. Objective Physical Exam Considered stroke alert: no Diagnosis, Assessment Plan Free Text DxA P Notes Free text DxA P notes: 7-year-old male with known to have paraplegia [place] in detention after he had fentanyl poisoning 3 years ago presenting wi th nausea, vomiting, diarrhea and abdominal pain. He was seen in ER. 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 He denied any recent hematuria or dysuri a or any other systemic complaints. he also denied any orthopnea, cramping, itching, ch patrick of taste, involuntary movements. He denied chronic use of NSAIDs. Neph rology following for: 1. JENNIFER or JENNIFER on CKD. We do not have previous la bs to see if he has prior history of kidney disease from his urina ry retention. Plan is to monitor renal function closely. Keep mean arterial pressure ab ove 65 and avoid nephrotoxic agents. Plan is to follow renal ultrasound. 2. Metabolic acidosis: Most likely secondary to poor renal function. Plan is to change IV fluids from normal saline to IV bic arb. Plan is to monitor closely. 3. Hypovolemia: Plan is to monitor input and out put closely with low-dose IV fluids. 4. Urinary tract infection: Plan is to continue IV antibiotics and monitor renal dosing. 5. Hypocalcemia: Most likely secondary to inflam mation. Plan is to monitor ionized calcium and give calcium IV if low. Electronically Signed by Patrica Caraballo MD on at 1338 RPT #:[id number] END OF REPORT 2022-10-25 10:33:00-00:00 [facility]) General Surgery Consult Note REPORT#:[id number] REPORT STATUS: Signed DATE:10/25/22 TIME: 1033 PATIENT: JORGE GOINS UNIT #: [id number] ROOM/BED: [place] [id number] : 86 AGE: 37 SEX: M ATTEND: Flo Sun MD ADM AUTHOR: Justina Klein MD * ALL edits or amendments must be made on the rimidi/computer document * History of Present Illness Chief complaint: SBO, Sacral decubitus HPI: Pt is a 37 yo m who is a paraplegic. He presented to the ER with c/o abdominal discomfort. Workup showed a SBO on KUB. He also has a stage IV sacral decubitus. I have been asked to see him for both of these i ssues. History - Adult longitudinal Past medical history: Reports: Congestive heart failure, Hypertension. Additional medical history: type B dissection s/p TEVAR, HTN Past surgical history: Reports: Cholecystectomy. Additional surgical history: TEVAR, TAYLA, THORACIC AOTIC ANEURYSM RUPTURE WI TH REPAIR Family history: Reports: Diabetes, Hypertension. Additional family history: Mother alive history of diabetes hypertension Father unknown Alcohol use: Denies EtOH use Drug use: Denies recreational drugs Smoking status for patients 13 years old or olde r: Never Smoker Other social history: Unemployed, Local resident , Good social support Additional social history: single he works in [employer] he denies any alcoh ol use or tobacco use PREVIOUSLY WORKED FOR [employer], NOW DISABLED. Medications: Home Medications: Medication Dose/Rte/Freq Days Qty Entered Last Max Daily Dose Reviewed ACETAMINOPHEN (TYLENOL) 650 MG PO 04/08/21 Strength: 325 MG TAB Q6H PRN PRN PAIN 1429 AMMONIUM LACTATE 1 APPLIC TOPICAL BID 04/08/21 (LAC-HYDRIN 5% LOTION) 1429 Strength: 5 % LOTION BISACODYL (DULCOLAX) 10 MG RECTAL 04/08/21 Strength: 10 MG SUPP.RECT DAILY PRN PRN 1429 CONSTIPATION GABAPENTIN (NEURONTIN) 300 MG PO TID 04/08/21 Strength: 300 MG CAP 1430 IBUPROFEN (ADVIL) 400 MG PO 04/08/21 Strength: 400 MG TAB Q8HPRN PRN 1431 PAIN/FEVER LABETALOL (TRANDATE) 400 MG PO BID 04/08/21 Strength: 100 MG TAB 1431 LISINOPRIL (ZESTRIL) 10 MG PO DAILY 04/08/21 Strength: 10 MG TAB 1431 MELATONIN 10 MG PO BEDTIME 04/08/21 Strength: 5 MG TAB 1432 HYDROcodone/APAP 1 TAB PO 04/08/21 (HYDROcodone/APAP Q6H PRN PRN SEVERE 1432 325) PAIN Strength: 10 MG-325 MG TAB POLYETHYLENE GLYCOL 17 GM PO DAILY 04/08/21 3350 1432 (MIRALAX) Strength: 17 GM POWDER POLYVINYL ALCOHOL 2 DROP EACH EYE 04/08/21 (ARTIFICIAL TEARS 1.4% TID PRN PRN EYE 1433 SOLN) Strength: 1.4 % OPHTH.SOLN SENNOSIDES/DOCUSATE 1 TAB PO BID 04/08/21 SOD 1433 (DOK PLUS 8.6/50 MG) Strength: 8.6 MG-50 MG TAB SIMETHICONE (GAS-X) 80 MG PO 04/08/21 Strength: 80 MG TAB.CHEW Q8H PRN PRN GAS 1434 TERAZOSIN (HYTRIN) 1 MG PO DAILY 04/08/21 Strength: 1 MG CAP 1434 tiZANidine (ZANAFLEX) 2 MG PO 04/08/21 Strength: 2 MG TAB Q8H PRN PRN MUSCLE 1435 SPASMS traMADol (ULTRAM) 50 MG PO 04/08/21 Strength: 50 MG TAB Q8H PRN PRN PAIN 1435 SERTRALINE (ZOLOFT) 100 MG PO DAILY 04/08/21 Strength: 100 MG TAB 1435 ASPIRIN EC (ECOTRIN) 81 MG PO DAILY 30 30 05/10 Strength: 81 MG TAB.EC 1128 NIFEdipine (PROCARDIA) 30 MG PO Q6HR 30 360 Strength: 10 MG CAP 1118 SIMETHICONE (GAS-X) 160 MG PO 30 120 09/08/20 Strength: 80 MG TAB.CHEW Q6H PRN PRN GAS 1119 Current Hospital Medications: Anti-Infective Agents Sig/Ronan Start time Last Medication Dose Route Stop Time Status Admin Vancomycin HCl 1,000 MG ONCE ONE 10/25 0130 DC 10/25 (VANCOMYCIN HCL) IV 10/25 0229 0141 Sodium Chloride 250 ML (SODIUM CHLORIDE 0.9%) Cefepime HCl 1 GM Q12H 10/25 0100 AC 10/25 (MAXIPIME) IV 10/30 0059 0138 Sodium Chloride 10 ML (SODIUM CHLORIDE) Miscellaneous 1 EACH ASDIR 10/25 0015 CKD Information IV 11/24 0014 (VANCOMYCIN PHARMACY TO DOSE) Vancomycin HCl 1,000 MG Q24H 10/24 2345 CAN (VANCOMYCIN HCL) IV 10/31 234 Piperacillin Sod/ 3.375 GM X1ED STA 10/24 2030 DC 10/24 Tazobactam Sod IV 10/24 2100 2215 (ZOSYN 3.375GM) Sodium Chloride 100 ML (SODIUM CHLORIDE 0.9% 100 ML) Vancomycin HCl 1,000 MG X1ED STA 10/24 2030 DC 10/24 (VANCOMYCIN HCL) IV 10/24 2129 2339 Sodium Chloride 250 ML (SODIUM CHLORIDE 0.9%) Blood Formation,Coagulation Sig/Ronan Start time Last Medication Dose Route Stop Time Status Admin Heparin Sodium 5,000 UNIT Q12HR 10/25 0900 AC 0 10/25 (HEPARIN 5000 UNITS/ SUBQ 11/24 0859 0957 ML) Central Nervous System Agents Sig/Ronan Start time Last Medication Dose Route Stop Time Status Admin Acetaminophen 650 MG Q4H PRN PRN 10/24 2345 AC (TYLENOL) PO 11/23 234 Hydrocodone Bitart/ 1 TAB Q6H PRN PRN 10/24 234 5 AC 10/25 Acetaminophen PO 10/29 2344 0202 (NORCO 5/325) Morphine Sulfate 4 MG Q4H PRN PRN 10/24 2345 A C (morphine SULFATE) IV 10/29 234 Temazepam 15 MG BEDTIME PRN PRN 10/24 2345 AC (RESTORIL) PO 11/23 2344 Electrolytic, Caloric, And Camila Sig/Ronan Start time Last Medication Dose Route Stop Time Status Admin Sodium Chloride 1,000 ML .Q10H 10/24 2345 AC (SODIUM CHLORIDE IV 11/23 2344 0100 0.9%) Sodium Chloride 2,100 ML BOLUS ONCE STA 10/24 2 030 DC 10/24 (SODIUM CHLORIDE IV 10/24 0.9%) Gastrointestinal Drugs Sig/Ronan Start time Last Medication Dose Route Stop Time Status Admin Ondansetron HCl 4 MG Q4H PRN PRN 10/24 2345 AC (ZOFRAN) IV 11/23 2344 Allergies: Coded Allergies: Iodine and Iodide Containing Produc (Severe, HIV ES 11/19/19) shellfish derived (Intermediate, RASH 11/19/19) Review of Systems Constitutional: malaise. Denies: chills, fat igue, fever, generalized weakness, lethargy, recent wt loss, other. Skin: Denies: abrasion, bruising, contusion, diaphores is, ecchymosis, itching, laceration, rash, swelling, other. Allergy/Immun: Denies: allergic reaction, anaphylaxis, hives, i tching, rhinorrhea, sneezing, other. Eyes: Denies: redness, discharge, visual loss/blurred, itching, diplopia, eye pain, photophobia, swelling, other. ENT: Denies: ear drainage, ear ringing, earache, hear ing loss, mouth pain, nasal congestion, nose bleeding, sinus problem, sore t hroat, throat pain, throat swelling, tongue pain, tongue swelling, toothach e, voice change, other. Respiratory: Denies: COATES (dyspnea on exertion), hemoptysis, n on productive cough, parox nocturnal dyspnea, pleurisy, pleuritic pain, pneumonia, productive cough (sputum ), SOB, wheezing, other. Cardiovascular: Denies: chest pain, COATES (dyspnea on exer tion), edema, orthopnea, palpitations, parox nocturnal dyspnea, other. GI: Reports: nausea. Denies: abdominal pain, anorexi a, constipation, diarrhea, dysphagia, GERD, hematemesis , hematochezia, hiatal hernia, melena, rectal pain, vomiting, other. : Denies: dysuria, flank pain, frequency, hematuria, nocturia, penile discharge, penile lesion, testicular pa in, testicular swelling, urgency, urinary retention, other. Musculoskeletal: Denies: arthritis, extremity pain, extremity swe lling, joint pain, joint swelling, lumbar pain, myalgias, neck pain, thor acic pain, other. Heme: Denies: adenopathy, bleeding, bruising, petechia e, other. Endocrine: Denies: cold intolerance, heat intolerance, poly dipsia, polyphagia, polyuria, weight gain, weight loss, other. Neuro: Denies: bladder dysfunction, bowel dysfunction, change in LOC, confusion, dizziness, focal weakness, gait problem, headach e, lightheaded, numbness, seizure, slurred speech, spinning sensation, syn cope, unable to speak, vision change, weakness, other. Psych: Denies: agitation, anxiety, auditory hallucinati on, change in mental status, confusion, delusional, depre ssion, homicidal ideation, hostile, insomnia, stress , suicidal ideation, visual hallucination, other . Objective Physical Exam VS/I O Last Documented: Result Date Time Pulse Ox 98 10/25 0800 B/P 156/72 10/25 0800 B/P Mean 104 10/25 0800 Pulse 124 10/25 0800 Temp 99.5 10/25 0600 Resp 19 10/25 0600 O2 Delivery Room air 10/24 2100 Vital Signs Date Temp Pulse Resp B/P B/P Mean Pulse Ox FiO2 10/24-10/25 99.5-99.8 112-127 17-25 107-163/51-8 5 70-111 95-100 24 hour I O ending at 0700: 10/25 0700 10/24 1900 Intake Total Output Total Balance Patient 100 kg Weight Weight Stated/Reported Measurement Method PATIENT WEIGHT: Weight (lb): Weight (oz): Weight (kg): 100.000 General appearance: chronica lly ill appearing, alert, awake, oriented, no acute distress, pleasant, conversational, mental statu s normal, no respiratory distress Wound/incision: Location: sacral Site condition: granulating HEENT: atraumatic, normocephalic Neck: supple/no meningismus Cardiovascular: tachycardia, regular rate and rh ythm Chest: normal appearance Respiratory: aerating well Abdomen: distended, non-tender, soft, no guardin g Extremities: normal temperature 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, oriented x 3, CNII-XII intact, normal speech Considered stroke alert: no Skin: normal color, normal temperature, normal t urgor Ulcer: Type/cause: pressure Duration: chronic Location: sacral region Stage: 4 Gangrene present: no Psychiatry: normal affect, normal judgment/insig ht, normal mood Results Findings/Data: Laboratory Tests: 10/25 10/25 10/25 10/25 0620 0620 0200 0200 Chemistry Sodium (134 - 147 mEq/L) 136 Potassium (3.4 - 5.0 mEq/L) 4.2 Chloride (100 - 108 mEq/L) 108 Carbon Dioxide (21 - 33 mEq/l) 14 L Anion Gap (0 - 20) 19 BUN (7 - 18 mg/dL) 60 H Creatinine (0.6 - 1.3 mg/dL) 3.3 H Glomerular Filtr Rate (105 - 110) 23.9 L Glucose (70 - 110 mg/dL) 74 Calcium (8.0 - 10.5 mg/dL) 7.5 L Triglycerides (40 - 150 mg/dL) 271 H Cholesterol (<200 mg/dL) 134 LDL Cholesterol Measurd (0 - 100 mg/dL) 34.0 HDL Cholesterol (32 - 72 mg/dL) 20.5 L Cholesterol/HDL Ratio (3.43 - 4.97 RATIO) 6.54 H TSH (0.42 - 5.47 IU/mL) 2.13 Hematology WBC (4.5 - 11.0 x10 3/uL) 9.6 RBC (4.00 - 5.60 x10 6/uL) 3.45 L Hgb (12.5 - 16.9 g/dL) 10.3 L Hct (37.5 - 50.7 %) 31.6 L MCV (81.0 - 99.0 fL) 91.6 MCH (27.0 - 33.0 pg) 29.9 MCHC (33.0 - 37.0 g/dL) 32.6 L RDW (11.5 - 14.5 %) 17.0 H Plt Count (150 - 400 x10 3/uL) 260 MPV (7.0 - 9.0 fL) 10.2 H Neut % (Auto) (56.0 - 77.0 %) 82.6 H Lymph % (Auto) (14.0 - 32.0 %) 9.7 L Citrus % (Auto) (4.8 - 9.0 %) 6.1 Eos % (Auto) (0.3 - 3.7 %) 0.8 Baso % (Auto) (0.0 - 2.0 %) 0.2 Neut # (Auto) (2.0 - 7.6 x10 3/uL) 7.88 H Lymph # (Auto) (1.0 - 3.8 x10 3/uL) 0.93 L Citrus # (Auto) (0.1 - 0.8 x10 3/uL) 0.58 Eos # (Auto) (0.0 - 0.2 x10 3/uL) 0.08 Baso # (Auto) (0.0 - 0.2 x10 3/uL) 0.02 Abs Immat Gran (auto) (0.00 - 0.03 x10 3/uL) 0. 06 H Add Manual Diff NO Immature Gran % (0.0 - 2.0 %) 0.6 Nucleated RBC % (0 - 0 %) 0.0 Nucleated RBCs # (Man) (0.0 - 0.1 x10 3/uL) 0.0 0 Urines Urine Color (YEL/STRAW) YELLOW Urine Appearance (CLEAR) CLOUDY H Urine pH (5.0 - 7.0) 5.0 Ur Specific Commerce (1.005 - 1.030) 1.016 Urine Protein (NEGATIVE) 2+ H Urine Glucose (UA) (NEGATIVE) NEGATIVE Urine Ketones (NEGATIVE) TRACE H Urine Blood (NEGATIVE) 3+ H Urine Nitrite (NEGATIVE) NEGATIVE Urine Bilirubin (NEGATIVE) NEGATIVE Urine Urobilinogen (0.2 - 1.0 mg/dL) 0.2 Ur Leukocyte Esterase (NEGATIVE) 2+ H Urine RBC (0 - 3 RBC/HPF) >50 H Urine WBC (0 - 3 WBC/HPF) >50 H Ur Squamous Epith Cells (NONE SEEN /HPF) NONE S EEN Urine Bacteria (NONE SEEN /HPF) 4+ H Urine Mucus (NONE SEEN /LPF) 2+ H Ur Random Creatinine (mg/dL) 147.5 U Random Total Protein (mg/dL) 221 Ur Random Sodium (MEQ/L) 37 Protein/Creatinin Ratio 1.50 10/24 10/24 2150 2150 Chemistry Sodium (134 - 147 mEq/L) 133 L Potassium (3.4 - 5.0 mEq/L) 4.4 Chloride (100 - 108 mEq/L) 101 Carbon Dioxide (21 - 33 mEq/l) 13 L Anion Gap (0 - 20) 23 H BUN (7 - 18 mg/dL) 62 H Creatinine (0.6 - 1.3 mg/dL) 3.9 H Glomerular Filtr Rate (105 - 110) 19.5 L Glucose (70 - 110 mg/dL) 69 L Lactic Acid (0.4 - 1.9 mmol/L) 1.8 Calcium (8.0 - 10.5 mg/dL) 8.2 Total Bilirubin (0.0 - 1.0 mg/dL) 0.60 Direct Bilirubin (0.0 - 0.30 MG/DL) 0.30 Indirect Bilirubin (MG/DL) 0.30 AST (15 - 37 IUnit/L) 27 ALT (30 - 65 IUnit/L) 12 L Total Alk Phosphatase (20 - 125 IUnit/L) 107 Troponin I High Sens (0 - 54 ng/L) 6 Total Protein (6.4 - 8.2 g/dL) 7.8 Albumin (3.4 - 5.0 g/dL) 3.60 Hematology WBC (4.5 - 11.0 x10 3/uL) 10.7 RBC (4.00 - 5.60 x10 6/uL) 3.69 L Hgb (12.5 - 16.9 g/dL) 10.6 L Hct (37.5 - 50.7 %) 34.5 L MCV (81.0 - 99.0 fL) 93.5 MCH (27.0 - 33.0 pg) 28.7 MCHC (33.0 - 37.0 g/dL) 30.7 L RDW (11.5 - 14.5 %) 16.4 H Plt Count (150 - 400 x10 3/uL) 240 MPV (7.0 - 9.0 fL) 11.0 H Neut % (Auto) (56.0 - 77.0 %) 83.4 H Lymph % (Auto) (14.0 - 32.0 %) 8.7 L Citrus % (Auto) (4.8 - 9.0 %) 6.6 Eos % (Auto) (0.3 - 3.7 %) 0.3 Baso % (Auto) (0.0 - 2.0 %) 0.3 Neut # (Auto) (2.0 - 7.6 x10 3/uL) 8.91 H Lymph # (Auto) (1.0 - 3.8 x10 3/uL) 0.93 L Citrus # (Auto) (0.1 - 0.8 x10 3/uL) 0.70 Eos # (Auto) (0.0 - 0.2 x10 3/uL) 0.03 Baso # (Auto) (0.0 - 0.2 x10 3/uL) 0.03 Abs Immat Gran (auto) (0.00 - 0.03 x10 3/uL) 0. 08 H Add Manual Diff NO Immature Gran % (0.0 - 2.0 %) 0.7 Nucleated RBC % (0 - 0 %) 0.0 Nucleated RBCs # (Man) (0.0 - 0.1 x10 3/uL) 0.0 0 Microbiology: Date/Time Procedure - Status Source Growth 10/25 199 Urine Culture - RECD URINE 10/24 2146 Blood Culture - RECD BLOOD 10/24 2144 Blood Culture - RECD BLOOD Recent Impressions: RADIOLOGY - XR ABDOMEN 1V (KUB) 10/25 2051 Report Impression - Status: SIGNED Entered: 10/24/20222125 IMPRESSION: Small bowel obstructive gas pattern. Impression By: [email or web address] Keyon Burrell M.D. RADIOLOGY - XR CHEST 1 V 10/25 2051 Report Impression - Status: SIGNED Entered: 10/24/20222102 IMPRESSION: No acute cardiopulmonary findings. Impression By: [email or web address] - King Dent M.D. ULTRASOUND - US RETROPERITONEAL COM 10/25 652 Report Impression - Status: SIGNED Entered: 10/25/2022 0906 IMPRESSION: Mild right hydronephrosis. Impression By: [email or web address] - Madhu Gutierrez Diagnosis, Assessment Plan Problem List/A P: 1. SBO (small bowel obstruction) 2. Paraplegia 3. Sacral decubitus ulcer, stage IV Free Text DxA P Notes Free Text DxA P Notes: I have personally interviewe d and examined the pt. All charts, labs and imaging studies were reviewed. No surgical intervention needed for his sacral wound. During exam, he had a large liquid bowel movement. Recommend clear liquid diet and advance as tolerated. at 1039 RPT #:[id number] END OF REPORT 2022-10-25 08:55:00-00:00 [facility] Hospitalist Progress Note REPORT#:[id number] REPORT STATUS: Signed DATE:10/25/22 TIME: 0855 PATIENT: JORGE GOINS UNIT #: [id number] ROOM/BED: [place] [address] : 86 AGE: 37 SEX: M ATTEND: Flo Sun MD ADM AUTHOR: Sandra Sun MD * ALL edits or amendments must be made on the rimidi/computer document * Subjective Chief complaint: TRANSFERRED FROM [facility] FOR UTI, SACRAL DECU B, SBO HPI: Patient doing well, had a la rge liquid bowel movement this a.m., nausea improved and patient wanting to challenge oral diet. No a cute change from admit. Review of Systems All systems rev neg: except as noted Free Text ROS Notes Free Text ROS Notes: 12 POINT ROS WERE REVIEWED AND NEGATIVE. Objective General VS/I O: Vital Signs: Date Time Temp Pulse Resp B/P B/P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 Impression By: [email or web address] Keyon Dent M.D. ECG #1 Interpretation Text/Dict Note 2129 Sinus tachycardia rate [address]-T wave findings suggestive of ischem ia No STEMI Independently reviewed and interpreted by myself Re-Evaluation MDM Free Text MDM Notes Free Text MDM Notes 37-year-old male, sent from outside facility wit h concern for sepsis -Initially arrived there nausea vomiting, febril e. 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 Additionally, patient with prior ischemic strokes -We will repeat x-ray and labs here, admit with general surgery consulted ED Course Medication(s) Ordered Medication(s) Ordered: Anti-Infective Agents Sig/Ronan Start time Last Medication Dose Route Stop Time Status Admin Piperacillin Sod/ 3.375 GM X1ED STA 10/24 2030 DC 10/24 Tazobactam Sod IV 10/24 Sodium Chloride 100 ML Vancomycin HCl 1,000 MG X1ED STA 10/24 2030 DC Sodium Chloride 250 ML IV 10/24 2129 Electrolytic, Caloric, And Camila Sig/Ronan Start time Last Medication Dose Route Stop Time Status Admin Sodium Chloride 2,100 ML BOLUS ONCE STA 10/24 2 030 DC 10/24 IV 10/24 Patient Discharge Departure Vital Signs/Condition Vital Signs First Documented: Result Date Time Pulse Ox 98 10/24 2099 B/P 120/64 10/24 2099 B/P Mean 82 10/24 2099 O2 Delivery Room air 10/24 2099 Temp 37.7 10/24 2099 Pulse 126 10/24 2099 Resp 17 10/24 2099 Last Documented: Result Date Time Pulse Ox 98 10/24 2099 B/P 120/64 10/24 2099 B/P Mean 82 10/24 2099 O2 Delivery Room air 10/24 2099 Temp 37.7 10/24 2099 Pulse 126 10/24 2099 Resp 17 10/24 2099 All vital signs available at the time of this en try have been reviewed. Clinical Impression Clinical Impression Primary Impression: JENNIFER (acute kidney injury) Secondary Impressions: Osteo myelitis, Paraplegia, SBO (small bowel obstruction) Disposition Decision Admit Admit Physician Name Reed Lizama MD )( Admission Accepts Yes )( Accepted Time 2319 )( Accepted Date 10/24/22 Call Information agrees with eval, agrees with plan Electronically Signed by Yasir Garcia MD on 07/18 at 2333 RPT #:[id number] END OF REPORT 2021-04-08 13:41:00-00:00 [facility] ([facility]) EMERGENCY PROVIDER REPORT REPORT#:[id number] REPORT STATUS: Signed DATE:04/08/21 TIME: 1341 PATIENT: JORGE GOINS UNIT #: [id number] ROOM/BED: AGE: 35 SEX: M PCP PHYS: No Primary or Family Ph ysician SERVICE AUTHOR: Yuri Roberts MD * ALL edits or amendments must be made on the rimidi/computer document * HPI-Trauma Minor/Fall General Initial Greet Date/Time 04/08/21 1317 Presentation Chief Complaint Head injury Hx Obtained From Patient, EMS Free Text HPI Notes Free Text HPI Notes 35-year-old male history of paraplegia, bedbound , history of aortic aneurysm repair presents to the ED af ter head trauma. Patient states one of the bed lift trapezium hit patient in the head prior to arriv al. Patient complains of moderate amount of head pain no LOC no nausea no vomiting no other injuries noted. Risk-Trauma Minor/Fall Risk Stratification Nexus C-Spine Criteria No: Post midline tenderness, Intoxicated, Altere d LOC/alertness, Focal neuro deficit pres, Distracting injury pres. [facility] Coma Score: Copyright Sir Vazquez Watson Copyright Sir Sam Watson Eye opening: (4) Spontaneous Verbal response: (5) Oriented Best motor response: (6) Obeys commands Intracranial Bleed Risk factors reviewed Review of Systems ROS Statements All systems rev neg except as marked. Focused Review of Systems Constitutional Denies: Fever, Lethargy. Eyes Denies: Eye pain bilat, Redness bilat, Visual lo ss bilat. Respiratory Denies: Cough, non-productive, Cough, productive , Shortness of breath. Musculoskeletal Denies: Back pain, Extremity pain. Skin Reports: Contusion. Denies: Abrasion, Laceration . Neurologic Reports: Headache. Denies: Change LOC, Dizziness , Focal weakness, Numbness, Slurred speech. Past Medical History - Adult Stated Complaint HEAD PAIN Allergies Coded Allergies: Iodine and Iodide Containing Produc (Severe, HIV ES 11/19/19) shellfish derived (Intermediate, RASH 11/19/19) Home Medications Active Scripts ASPIRIN EC (ECOTRIN) 81 MG PO DAILY 30 Days #30 TABS Prov: 05/10/19 NIFEdipine (PROCARDIA) 30 MG PO Q6HR 30 Days #360 CAP Prov: 09/08/20 SIMETHICONE (GAS-X) 160 MG PO Q6H PRN PRN GAS 30 Days #120 TAB Prov: 09/08/20 Discontinued Scripts ACETAMINOPHEN/CODEINE (TYLENOL WITH CODE INE #4 300/60 MG) 1 TAB PO Q6H PRN PRN PAIN 7 Days #20 TAB Prov: 05/10/19 DC: 04/08/21 1436 Patient stopped taking ALBUTEROL (PROAIR HFA 90 MCG/ACT 8.5 GM) 2 PUFF INH RTQ6H PRN PRN SOB 30 Days #1 EACH Prov: 09/08/20 DC: 04/08/21 1436 Patient stopped taking ATORVASTATIN (LIPITOR) 40 MG PO DAILY 30 Days #30 TAB Prov: 09/08/20 DC: 04/08/21 1436 Patient stopped taking ISOSORBIDE MONONITRATE (MONOKET) 40 MG PO BID 30 Days #120 TAB Prov: 09/08/20 DC: 04/08/21 1436 Patient stopped taking hydrALAZINE (APRESOLINE) 10 MG PO BID 30 Days #60 TAB Prov: 09/08/20 DC: 04/08/21 1436 Patient stopped taking CARVEDILOL (COREG) 25 MG PO BID MEALS 30 Days #60 TAB Prov: 09/08/20 DC: 04/08/21 1436 Patient stopped taking HYDROCHLOROTHIAZIDE (HYDRODIURIL) 50 MG PO DAILY 30 Days #60 TAB Prov: 09/08/20 DC: 04/08/21 1436 Patient stopped taking COLLAGENASE (SANTYL OINT) 1 APPLIC TOPICAL DAILY 30 Days #1 EACH Prov: 09/08/20 DC: 04/08/21 1436 Patient stopped taking Reported Medications ACETAMINOPHEN (TYLENOL) 650 MG PO Q6H PRN PRN PA IN AMMONIUM LACTATE (LAC-HYDRIN 5% LOTION) 1 APPLIC TOPICAL BID BISACODYL (DULCOLAX) 10 MG RECTAL DAILY PRN PRN CONSTIPATION GABAPENTIN (NEURONTIN) 300 MG PO TID IBUPROFEN (ADVIL) 400 MG PO Q8HPRN PRN PAIN/FEVE R LABETALOL (TRANDATE) 400 MG PO BID LISINOPRIL (ZESTRIL) 10 MG PO DAILY MELATONIN 10 MG PO BEDTIME HYDROcodone/APAP (NORCO 10/325) 1 TAB PO Q6H PRN PRN SEVERE PAIN POLYETHYLENE GLYCOL 3350 (MIRALAX) 17 GM PO THOMAS Y POLYVINYL ALCOHOL (ARTIFICIAL TEARS 1.4% SOLN) 2 DROP EACH EYE TID PRN PRN EYE SENNOSIDES/DOCUSATE SOD (DOK PLUS 8.6/50 MG) 1 T AB PO BID SIMETHICONE (GAS-X) 80 MG PO Q8H PRN PRN GAS TERAZOSIN (HYTRIN) 1 MG PO DAILY tiZANidine (ZANAFLEX) 2 MG PO Q8H PRN PRN MUSCLE SPASMS traMADol (ULTRAM) 50 MG PO Q8H PRN PRN PAIN SERTRALINE (ZOLOFT) 100 MG PO DAILY Past Medical History: Reports: Congestive heart failure, Hypertension. Additional Medical History type B dissection s/p TEVAR Past Surgical History: Reports: Cholecystectomy. Additional Surgical History TEVAR Family History: Reports: Diabetes, Hypertension. 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 he denies any alcoh ol use or tobacco use Physical Exam Vital Signs Vital Signs First Documented: Result Date Time Pulse Ox 100 04/08 1323 B/P 113/73 04/08 1323 B/P Mean 86 04/08 1323 O2 Delivery Room air 04/08 1323 Temp 36.8 04/08 132 Pulse 77 04/08 132 Resp 16 04/08 1323 Last Documented: Result Date Time Pulse Ox 100 04/08 1600 B/P 117/63 04/08 1600 B/P Mean 81 04/08 1600 O2 Delivery Room air 04/08 1600 Pulse 76 04/08 1600 Resp 16 04/08 1600 Temp 36.8 04/08 132 Review of Vital Signs Reviewed Focused PE General/Const General/Const Awake, Alert MS Head Head Atraumatic, Normocephalic Eyes Eyes Atraumatic, PERRL, EOMI, No perior bital redness, No periorbital swelling Ears/Nose/Throat Ears/Nose/Throat Atraumatic, Airway patent, Muc ous membranes moist, Pharynx NL MS Neck Neck Atraumatic, Supple, Full range of motion, No swelling, Non-tender, No midline vertebral tend Resp/Chest Respiratory/Chest Breath sounds NL, Breath soun ds = bilat, No respiratory distress, No rales, No rhonc hi, No wheezing, No chest tenderness, No chest wall deformity, No crepitus Abdomen/GI Abdomen/GI Atraumatic, Soft, Non-tender Neurologic Neurologic Oriented X3 Interpretation Diagnostics Lab Results Interpretation Considerations Independ review imaging, Reviewed prior records Results Recent Impressions: CAT SCAN - CT C-SPINE W/O CONT 04/08 140 Report Impression - Status: SIGNED Entered: 04/08/2021 1420 IMPRESSION: No intracranial hemorrhage or acute abnormality. EXAM: CT CERVICAL SPINE WITHOUT CONTRAST INDICATION: Neck pain COMPARISON: None. TECHNIQUE: Axially oriented CT images were obtai liz through the entire cervical spine, without contrast. Coronal and sagittal reformations are also provided. Up-to-date CT eq uipment and radiation dose reduction techniques were utilized. Automat ic exposure control was utilized. FINDINGS: No fracture, malalignment or other bony abnormal ity is identified. Prevertebral soft tissues are normal. No central canal or foraminal stenosis is seen. Deep soft tissue of the neck a re normal. Visualized lung apices and upper mediastinum are normal. Limited views of the skull base, paranasal sinuses, and mastoi d air cells are unremarkable. IMPRESSION: No acute bony abnormality. No centra l canal or foraminal stenosis. Impression By: Kenny Haynes M.D. CAT SCAN - CT HEAD/BRAIN W/O CONT 04/08 1401 Report Impression - Status: SIGNED Entered: 04/08/2021 1420 IMPRESSION: No intracranial hemorrhage or acute abnormality. EXAM: CT CERVICAL SPINE WITHOUT CONTRAST INDICATION: Neck pain COMPARISON: None. TECHNIQUE: Axially oriented CT images were obtai liz through the entire cervical spine, without contrast. Coronal and sagittal reformations are also provided. Up-to-date CT eq uipment and radiation dose reduction techniques were utilized. Automat ic exposure control was utilized. FINDINGS: No fracture, malalignment or other bony abnormal ity is identified. Prevertebral soft tissues are normal. No central canal or foraminal stenosis is seen. Deep soft tissue of the neck a re normal. Visualized lung apices and upper mediastinum are normal. Limited views of the skull base, paranasal sinuses, and mastoi d air cells are unremarkable. IMPRESSION: No acute bony abnormality. No centra l canal or foraminal stenosis. Impression By: [email or web address] - Wilfrido Proett, M.D. Point of Care Testing Pulse Oximetry Pulse Ox % 98 On: Room air Interpretation Interpreted by me, Pulse oximetr y normal Re-Evaluation MDM Re-Evaluation/Progress #1 Re-Eval Status Improved Eval Following Treatment Pt. feels better Exam Post Tx - General Active Exam Post Tx - Sys Review Lungs clear Plan Post Re-Eval Plan discharge ED Course Medication(s) Ordered Medication(s) Ordered: Central Nervous System Agents Sig/Ronan Start time Last Medication Dose Route Stop Time Status Admin Morphine Sulfate 4 MG X1ED STA 04/08 1344 DC / IV 04/08 1345 1348 Hydrocodone Bitart/ 1 TAB X1ED STA 04/08 1338 C AN Acetaminophen PO 04/08 1339 Patient Discharge Departure Vital Signs/Condition Vital Signs First Documented: Result Date Time Pulse Ox 100 04/08 1323 B/P 113/73 04/08 1323 B/P Mean 86 04/08 1323 O2 Delivery Room air 04/08 1323 Temp 36.8 04/08 1323 Pulse 77 04/08 1323 Resp 16 04/08 1323 Last Documented: Result Date Time Pulse Ox 100 04/08 1600 B/P 117/63 04/08 1600 B/P Mean 81 04/08 1600 O2 Delivery Room air 04/08 1600 Pulse 76 04/08 1600 Resp 16 04/08 1600 Temp 36.8 04/08 1323 All vital signs available at the time of this en try have been reviewed. Condition Stable, Improved Clinical Impression Clinical Impression Primary Impression: Head injury Secondary Impressions: Head contusion Disposition Decision Discharge )( Discharged to Home Yes )( Time 1444 )( Date 04/08/21 Discharge/Care Plan Counseled Regarding Diagnosi s, Lab results, Imaging studies, Need for follow-up, When to return to ED Prescriptions Reviewed Risks, Benefits, Alternat anupama treatment Patient Instructions ED Head Injury (Adult) Referrals PRIMARY CARE RETURN TO THE ER Discharge Note I have spoken with the patie nt and/or caregivers. I have explained the patient's condition, diagnoses and jaxon atment plan based on the information available to me at this time. I have answered the patient's and/ or caregiver's questions and addressed any concerns. The patient and/or careg rm have as good an understanding of the patient 's diagnosis, condition and treatment plan as can be expected at this point. The vital signs have bee n stable. The patient's condition is stable and appr opriate for discharge from the emergency department. The patient will pursue further outpatient evalu ation with the primary care physician or other designated or consulting phys ician as outlined in the discharge instructions. The patient and/or caregivers are agreeable to this plan of care and follow-up instructions have been exp lained in detail. The patient and/or caregivers have received these instructio ns in written format and have expressed an understanding of the discharge inst ructions. The patient and/or caregivers are aware that any significant change in condition or worsening of symptoms should prompt an immediate return to [facility] or the closest emergency department or a call to 1. Electronically Signed by Yuri Roberts MD on at 1412 RPT #:[id number] END OF REPORT 2020-09-08 09:06:00-00:00 [facility] ([facility] Neurology Progress Note REPORT#:[id number] REPORT STATUS: Signed DATE:09/08/20 TIME: 905 PATIENT: JORGE GOINS UNIT #: [id number] ROOM/BED: [address] : [birth year] AGE: 35 SEX: M ATTEND: Edmar Altamirano MD ADM AUTHOR: Seda Vega NP * ALL edits or amendments must be made on the el [employer]/computer document * Subjective Chief Complaint: no acute neuro events, awake alert, still has BL E weakness Objective General VS: Last Documented: Result Date Time Pulse Ox 100 09/08 1159 B/P 159/92 09/08 1159 B/P Mean 114.8 09/08 1159 O2 Delivery Room air 09/08 1159 Temp 98.8 09/08 1159 Pulse 92 09/08 1159 Resp 16 09/08 1159 FiO2 21 08/06 0823 O2 Flow Rate 5 07/28 2322 PATIENT WEIGHT: Weight (lb): 175 Weight (oz): 4.28 Weight (kg): 79.500 Medications Current Home Medications ASPIRIN EC (ECOTRIN) 81 MG PO DAILY ACETAMINOPHEN/CODEINE (TYLENOL WITH CODE INE #4 300/60 MG) 1 TAB PO Q6H PRN PRN PAIN ALBUTEROL (PROAIR HFA 90 MCG/ACT 8.5 GM) 2 PUFF INH RTQ6H PRN PRN SOB ATORVASTATIN (LIPITOR) 40 MG PO DAILY ISOSORBIDE MONONITRATE (MONOKET) 40 MG PO BID NIFEdipine (PROCARDIA) 30 MG PO Q6HR hydrALAZINE (APRESOLINE) 10 MG PO BID CARVEDILOL (COREG) 25 MG PO BID MEALS HYDROCHLOROTHIAZIDE (HYDRODIURIL) 50 MG PO DAILY SIMETHICONE (GAS-X) 160 MG PO Q6H PRN PRN GAS COLLAGENASE (SANTYL OINT) 1 APPLIC TOPICAL DAILY Active Meds + DC'd Last 24 Hrs Sennosides 2 TAB DAILY PO (CKD) Hydrocodone Bitart/Acetaminophen 1 TAB Q6H PRN P RN PO Hydralazine HCl 10 MG BID PO Hydrochlorothiazide 50 MG DAILY PO Docusate Sodium 200 MG DAILY PRN PRN PO Polyethylene Glycol 1 PKT DAILY PRN PRN PO (CKD) Diphenhydramine HCl 50 MG ASDIR PO (CKD) Prednisone 50 MG ASDIR PO (CKD) Prednisone 50 MG ASDIR PO (CKD) Prednisone 50 MG ASDIR PO (CKD) Diphenhydramine HCl 50 MG ASDIR PO (CKD) Prednisone 50 MG ASDIR PO (CKD) Prednisone 50 MG ASDIR PO (CKD) Nifedipine 30 MG Q6HR PO Prednisone 50 MG ASDIR PO (CKD) Heparin Sodium (Porcine) 5,000 UNIT Q12HR SUBQ Diphenhydramine HCl 50 MG ASDIR IV (CKD) Immune Globulin 30 GM DAILY IV IV Miscellaneous Supplies 1 EACH Zolpidem Tartrate 5 MG BEDTIME PRN PRN PO Collagenase 1 APPLIC DAILY TOPICAL Dextrose/Water 25 ML ASDIR PRN IV Glucagon 1 MG ASDIR PRN IM Sterile Water 1 ML ASDIR PRN IM Aspirin 81 MG DAILY PO Atorvastatin Calcium 40 MG DAILY PO Acetaminophen 650 MG Q4H PRN PRN PO Cyclobenzaprine HCl 10 MG BID PRN PRN PO Loperamide HCl 2 MG Q6H PRN PRN PO Simethicone 160 MG Q6H PRN PRN PO Hydralazine HCl 10 MG Q6H PRN PRN IV Isosorbide Mononitrate 40 MG BID PO (CKD) Magnesium 100 ML ASDIR PRN IV Magnesium Sulfate 50 ML ASDIR PRN IV Magnesium Sulfate 100 ML ASDIR PRN IV Physical Exam General appearance: alert, awake Results Findings/Data: Laboratory Tests 09/08 09/08 09/07 09/07 1200 0255 2019 1530 Chemistry Sodium (137 - 145 mmol/L) 135 L Potassium (3.4 - 5.0 mmol/L) 4.2 Chloride (98 - 107 mmol/L) 104 Carbon Dioxide (22 - 30 mmol/L) 24 BUN (9 - 20 mg/dL) 38 H Creatinine (0.7 - 1.3 mg/dL) 0.8 Glomerular Filtr Rate (>60) 143 Glucose (74 - 106 mg/dL) 92 POC Glucose (74 - 106 MG/DL) 91 101 101 Calcium (8.4 - 10.2 mg/dL) 8.7 Laboratory Tests 09/08 0255 Hematology WBC (5.0 - 12.0 x10 3/uL) 7.1 RBC (4.70 - 6.10 x10 6/uL) 2.81 L Hgb (14.0 - 18.0 g/dL) 8.5 L Hct (37.0 - 49.0 %) 26.7 L MCV (80 - 94 fL) 95 H MCH (27 - 31 pg) 30.2 MCHC (33 - 37 g/dL) 31.8 L RDW (11.5 - 15.5 %) 16.9 H Plt Count (130 - 400 x10 3/uL) 219 MPV (9.4 - 16.4 fL) 9.5 Neut % (Auto) (43 - 65 %) 69.2 H Lymph % (Auto) (20.5 - 45.5 %) 16.7 L Citrus % (Auto) (5.5 - 11.7 %) 12.1 H Eos % (Auto) (0.9 - 2.9 %) 1.0 Baso % (Auto) (0.2 - 1.0 %) 0.3 Neut # (Auto) (2.2 - 4.8 x10 3/uL) 4.88 H Lymph # (Auto) (1.3 - 2.9 x10 3/uL) 1.18 L Citrus # (Auto) (0.3 - 0.8 x10 3/uL) 0.85 H Eos # (Auto) (0.0 - 0.2 x10 3/uL) 0.07 Baso # (Auto) (0.0 - 0.1 x10 3/uL) 0.02 Immature Gran % (0.0 - 2.0 %) 0.7 Nucleated RBC % (0 - 1.0 %) 0.0 Diagnosis, Assessment Plan Problem List/A P: 1. Metabolic encephalopathy 2. Critical illness myopathy 3. Hypertensive urgency Free Text A P: Assessment Lower extremity paraplegia in a patient with pro longed hospital stay. He has areflexia on exam and 0 out of 5 power. MRI of the spine to r/o cord infarct or other pr ocess has been attempted in [place] however given high degree of artifact the scan was aborted. Due to the degree of artifact generated by these stent ellis ts the spine was not visible and thus the study was canceled. 1. Lower extremity weakness- GBS vs critical ill ness myopathy 2. Acute encephalopathy - resolved 3. Acute ischemic strokes, suspect embolic sourc e, no PFO on DOMINIK, on asa and statin 4. s/p PEA arrest 06/11/20 5. hypertensive emergency -resolved 6. acute respiratory failure, resolved 7. type b aortic dissection Plan -continue with IVIG x 5 days for presumed GBS -serum osmolality daily while on IVIG -d/w pt, Dr Chino -will follow -neuro clear for d/c after finish with IVIG rosa ment Electronically Signed by Seda Vega NP on 08/24 12/14 at 1303 RPT #:[id number] END OF REPORT 2020-09-08 09:06:00-00:00 [facility] Neurology Progress Note REPORT#:[id number] REPORT STATUS: Signed DATE:09/08/20 TIME: 905 PATIENT: JORGE GOINS UNIT #: [id number] ROOM/BED: [address] : [birth year] AGE: 35 SEX: M ATTEND: Do zo Altamirano MD ADM AUTHOR: Seda Vega BRAZING MACHINE TENDER * ALL edits or amendments must be made on the el [employer]/computer document * Seda Vega 09/08/20 0906: Subjective Chief Complaint: no acute neuro events, awake alert, still has BL E weakness Objective General VS: Last Documented: Result Date Time Pulse Ox 100 09/08 1159 B/P 159/92 09/08 1159 B/P Mean 114.8 09/08 1159 O2 Delivery Room air 09/08 1159 Temp 98.8 09/08 1159 Pulse 92 09/08 1159 Resp 16 09/08 1159 FiO2 21 08/06 0823 O2 Flow Rate 5 07/28 2322 PATIENT WEIGHT: Weight (lb): 175 Weight (oz): 4.28 Weight (kg): 79.500 Medications Current Home Medications ASPIRIN EC (ECOTRIN) 81 MG PO DAILY ACETAMINOPHEN/CODEINE (TYLENOL WITH CODE INE #4 300/60 MG) 1 TAB PO Q6H PRN PRN PAIN ALBUTEROL (PROAIR HFA 90 MCG/ACT 8.5 GM) 2 PUFF INH RTQ6H PRN PRN SOB ATORVASTATIN (LIPITOR) 40 MG PO DAILY ISOSORBIDE MONONITRATE (MONOKET) 40 MG PO BID NIFEdipine (PROCARDIA) 30 MG PO Q6HR hydrALAZINE (APRESOLINE) 10 MG PO BID CARVEDILOL (COREG) 25 MG PO BID MEALS HYDROCHLOROTHIAZIDE (HYDRODIURIL) 50 MG PO DAILY SIMETHICONE (GAS-X) 160 MG PO Q6H PRN PRN GAS COLLAGENASE (SANTYL OINT) 1 APPLIC TOPICAL DAILY Active Meds + DC'd Last 24 Hrs Sennosides 2 TAB DAILY PO (CKD) Hydrocodone Bitart/Acetaminophen 1 TAB Q6H PRN P RN PO Hydralazine HCl 10 MG BID PO Hydrochlorothiazide 50 MG DAILY PO Docusate Sodium 200 MG DAILY PRN PRN PO Polyethylene Glycol 1 PKT DAILY PRN PRN PO (CKD) Diphenhydramine HCl 50 MG ASDIR PO (CKD) Prednisone 50 MG ASDIR PO (CKD) Prednisone 50 MG ASDIR PO (CKD) Prednisone 50 MG ASDIR PO (CKD) Diphenhydramine HCl 50 MG ASDIR PO (CKD) Prednisone 50 MG ASDIR PO (CKD) Prednisone 50 MG ASDIR PO (CKD) Nifedipine 30 MG Q6HR PO Prednisone 50 MG ASDIR PO (CKD) Heparin Sodium (Porcine) 5,000 UNIT Q12HR SUBQ Diphenhydramine HCl 50 MG ASDIR IV (CKD) Immune Globulin 30 GM DAILY IV IV Miscellaneous Supplies 1 EACH Zolpidem Tartrate 5 MG BEDTIME PRN PRN PO Collagenase 1 APPLIC DAILY TOPICAL Dextrose/Water 25 ML ASDIR PRN IV Glucagon 1 MG ASDIR PRN IM Sterile Water 1 ML ASDIR PRN IM Aspirin 81 MG DAILY PO Atorvastatin Calcium 40 MG DAILY PO Acetaminophen 650 MG Q4H PRN PRN PO Cyclobenzaprine HCl 10 MG BID PRN PRN PO Loperamide HCl 2 MG Q6H PRN PRN PO Simethicone 160 MG Q6H PRN PRN PO Hydralazine HCl 10 MG Q6H PRN PRN IV Isosorbide Mononitrate 40 MG BID PO (CKD) Magnesium 100 ML ASDIR PRN IV Magnesium Sulfate 50 ML ASDIR PRN IV Magnesium Sulfate 100 ML ASDIR PRN IV Physical Exam General appearance: alert, awake Results Findings/Data: Laboratory Tests 09/08 09/08 09/07 09/07 1200 0255 2019 1530 Chemistry Sodium (137 - 145 mmol/L) 135 L Potassium (3.4 - 5.0 mmol/L) 4.2 Chloride (98 - 107 mmol/L) 104 Carbon Dioxide (22 - 30 mmol/L) 24 BUN (9 - 20 mg/dL) 38 H Creatinine (0.7 - 1.3 mg/dL) 0.8 Glomerular Filtr Rate (>60) 143 Glucose (74 - 106 mg/dL) 92 POC Glucose (74 - 106 MG/DL) 91 101 101 Calcium (8.4 - 10.2 mg/dL) 8.7 Laboratory Tests 09/08 0255 Hematology WBC (5.0 - 12.0 x10 3/uL) 7.1 RBC (4.70 - 6.10 x10 6/uL) 2.81 L Hgb (14.0 - 18.0 g/dL) 8.5 L Hct (37.0 - 49.0 %) 26.7 L MCV (80 - 94 fL) 95 H MCH (27 - 31 pg) 30.2 MCHC (33 - 37 g/dL) 31.8 L RDW (11.5 - 15.5 %) 16.9 H Plt Count (130 - 400 x10 3/uL) 219 MPV (9.4 - 16.4 fL) 9.5 Neut % (Auto) (43 - 65 %) 69.2 H Lymph % (Auto) (20.5 - 45.5 %) 16.7 L Citrus % (Auto) (5.5 - 11.7 %) 12.1 H Eos % (Auto) (0.9 - 2.9 %) 1.0 Baso % (Auto) (0.2 - 1.0 %) 0.3 Neut # (Auto) (2.2 - 4.8 x10 3/uL) 4.88 H Lymph # (Auto) (1.3 - 2.9 x10 3/uL) 1.18 L Citrus # (Auto) (0.3 - 0.8 x10 3/uL) 0.85 H Eos # (Auto) (0.0 - 0.2 x10 3/uL) 0.07 Baso # (Auto) (0.0 - 0.1 x10 3/uL) 0.02 Immature Gran % (0.0 - 2.0 %) 0.7 Nucleated RBC % (0 - 1.0 %) 0.0 Diagnosis, Assessment Plan Problem List/A P: 1. Metabolic encephalopathy 2. Critical illness myopathy 3. Hypertensive urgency Free Text A P: Assessment Lower extremity paraplegia in a patient with pro longed hospital stay. He has areflexia on exam and 0 out of 5 power. MRI of the spine to r/o cord infarct or other pr ocess has been attempted in [place] however given high degree of artifact the scan was aborted. Due to the degree of artifact generated by these stent ellis ts the spine was not visible and thus the study was canceled. 1. Lower extremity weakness- GBS vs critical ill ness myopathy 2. Acute encephalopathy - resolved 3. Acute ischemic strokes, suspect embolic sourc e, no PFO on DOMINIK, on asa and statin 4. s/p PEA arrest 06/11/20 5. hypertensive emergency -resolved 6. acute respiratory failure, resolved 7. type b aortic dissection Plan -continue with IVIG x 5 days for presumed GBS -serum osmolality daily while on IVIG -d/w pt, Dr Chino -will follow -neuro clear for d/c after finish with IVIG William Monroe 09/08/20 1512: Diagnosis, Assessment Plan Free Text A P: agree with above note/ plan by BRAZING MACHINE TENDER Electronically Signed by Seda Vega NP on 08/24 12/14 at 1303 at 1512 RPT #:[id number] END OF REPORT 2020-09-07 15:41:00-00:[address] [facility] ([facility]) Neurology Progress Note REPORT#:[id number] REPORT STATUS: Signed DATE:09/07/20 TIME: 1541 PATIENT: JORGE GOINS UNIT #: [id number] ROOM/BED: [address] : [birth year] AGE: 35 SEX: M ATTEND: Edmar Altamirano MD ADM AUTHOR: William Chino DO * ALL edits or amendments must be made on the [employer]/computer document * Subjective Chief Complaint: no new complaint/ issue Objective General VS: Last Documented: Result Date Time Pulse Ox 100 09/07 1532 B/P 165/92 09/07 1532 B/P Mean 116.5 09/07 1532 O2 Delivery Room air 09/07 1532 Temp 97.5 09/07 1532 Pulse 88 09/07 1532 Resp 16 09/07 1532 FiO2 21 08/06 0823 O2 Flow Rate 5 07/28 2322 PATIENT WEIGHT: Weight (lb): 175 Weight (oz): 4.28 Weight (kg): 79.500 Medications Current Home Medications ALBUTEROL (PROAIR HFA 90 MCG/ACT 8.5 GM) 2 PUFF INH RTQ6H PRN PRN SOB ASPIRIN EC (ECOTRIN) 81 MG PO DAILY CARVEDILOL (COREG) 25 MG PO BID MEALS ACETAMINOPHEN/CODEINE (TYLENOL WITH CODE INE #4 300/60 MG) 1 TAB PO Q6H PRN PRN PAIN ATORVASTATIN (LIPITOR) 20 MG PO BEDTIME LOSARTAN (COZAAR) 100 MG PO DAILY NIFEdipine CC (ADALAT CC) 90 MG PO Q12HR HYDROCHLOROTHIAZIDE (HYDRODIURIL) 25 MG PO DAILY Active Meds + DC'd Last 24 Hrs Sennosides 2 TAB DAILY PO (CKD) Hydralazine HCl 10 MG BID PO Hydrochlorothiazide 50 MG DAILY PO Docusate Sodium 200 MG DAILY PRN PRN PO Polyethylene Glycol 1 PKT DAILY PRN PRN PO (CKD) Diphenhydramine HCl 50 MG ASDIR PO (CKD) Prednisone 50 MG ASDIR PO (CKD) Prednisone 50 MG ASDIR PO (CKD) Prednisone 50 MG ASDIR PO (CKD) Diphenhydramine HCl 50 MG ASDIR PO (CKD) Prednisone 50 MG ASDIR PO (CKD) Prednisone 50 MG ASDIR PO (CKD) Nifedipine 30 MG Q6HR PO Prednisone 50 MG ASDIR PO (CKD) Heparin Sodium (Porcine) 5,000 UNIT Q12HR SUBQ Diphenhydramine HCl 50 MG ASDIR IV (CKD) Immune Globulin 30 GM DAILY IV IV Miscellaneous Supplies 1 EACH Zolpidem Tartrate 5 MG BEDTIME PRN PRN PO Collagenase 1 APPLIC DAILY TOPICAL Dextrose/Water 25 ML ASDIR PRN IV Glucagon 1 MG ASDIR PRN IM Sterile Water 1 ML ASDIR PRN IM Aspirin 81 MG DAILY PO Atorvastatin Calcium 40 MG DAILY PO Acetaminophen 650 MG Q4H PRN PRN PO Cyclobenzaprine HCl 10 MG BID PRN PRN PO Loperamide HCl 2 MG Q6H PRN PRN PO Simethicone 160 MG Q6H PRN PRN PO Hydralazine HCl 10 MG Q6H PRN PRN IV Isosorbide Mononitrate 40 MG BID PO (CKD) Magnesium 100 ML ASDIR PRN IV Magnesium Sulfate 50 ML ASDIR PRN IV Magnesium Sulfate 100 ML ASDIR PRN IV Physical Exam General appearance: awake, no acute distress, pl easant Diagnosis, Assessment Plan Problem List/A P: 1. Metabolic encephalopathy 2. Critical illness myopathy 3. Hypertensive urgency Free Text A P: Assessment Lower extremity paraplegia in a patient with pro longed hospital stay. He has areflexia on exam and 0 out of 5 power. MRI of the spine to r/o cord infarct or other pr ocess has been attempted in [place] however given high degree of artifact the scan was aborted. Due to the degree of artifact generated by these stent ellis ts the spine was not visible and thus the study was canceled. 1. Lower extremity weakness- GBS vs critical ill ness myopathy 2. Acute encephalopathy - resolved 3. Acute ischemic strokes, suspect embolic sourc e, no PFO on DOMINIK, on asa and statin 4. s/p PEA arrest 06/11/20 5. hypertensive emergency -resolved 6. acute respiratory failure, resolved 7. type b aortic dissection Plan -continue with IVIG x 5 days for presumed GBS -check serum osmolality We will follow at 1542 RPT #:[id number] END OF REPORT 2020-09-07 11:58:00-00:00 [facility]) Hospitalist Progress Note REPORT#:[id number] REPORT STATUS: Signed DATE:09/07/20 TIME: 1158 PATIENT: JORGE GOINS UNIT #: [id number] ROOM/BED: [address] : [birth year] AGE: 35 SEX: M ATTEND: Edmar Altamirano MD ADM AUTHOR: Marquita Betancur * ALL edits or amendments must be made on the rimidi/computer document * Subjective Chief Complaint: Follow up Reports constipation, consitent with constipatio n seen on imaging Review of Systems Constitutional: Denies: generalized weakness. Respiratory: Denies: COATES (dyspnea on exertion), non productiv e cough, productive cough ( sputum), SOB. Cardiovascular: Denies: chest pain, edema, palpitations. GI: Reports: abdominal pain, constipation. Denies: n ausea, vomiting. All systems rev neg: except as marked Objective General VS/I O: Vital Signs: Date Time Temp Pulse Resp B/P B/P Pulse O2 O2 F low FiO2 Mean Ox Delivery Rate 09/07 1103 36.9 101 16 143/76 97.9 100 Room air 09/07 0744 36.7 94 16 142/87 105.7 100 Room air 09/07 0320 36.9 99 19 164/96 118.6 100 09/06 2334 36.5 86 20 157/92 113.8 100 09/06 1923 37.0 95 16 168/86 113.0 99 09/06 1627 37.0 91 17 159/85 109.8 100 Room air 09/06 1204 36.7 98 17 165/84 111.2 100 Room ai r 24 hour I O ending at 0700: 09/07 0700 09/06 1900 Intake Total 450 900.00 Output Total 900 750 Balance -450 150.00 Intake, IV 300.00 Intake, Oral 450 600 Number 1 Bowel Movements Output, Urine 900 750 PATIENT WEIGHT: Weight (lb): 175 Weight (oz): 4.28 Weight (kg): 79.500 Medications: Active Meds + DC'd Last 24 Hrs Sennosides 2 TAB DAILY PO (UNV) Hydrochlorothiazide 50 MG DAILY PO Sennosides 1 TAB BEDTIME PO (CAN) Docusate Sodium 200 MG DAILY PRN PRN PO Polyethylene Glycol 1 PKT DAILY PRN PRN PO (CKD) Iopamidol 100 ML .STK-MED ONE IV (DC) Diphenhydramine HCl 50 MG ASDIR PO (CKD) Prednisone 50 MG ASDIR PO (CKD) Prednisone 50 MG ASDIR PO (CKD) Prednisone 50 MG ASDIR PO (CKD) Diphenhydramine HCl 50 MG ASDIR PO (CKD) Prednisone 50 MG ASDIR PO (CKD) Prednisone 50 MG ASDIR PO (CKD) Nifedipine 30 MG Q6HR PO Prednisone 50 MG ASDIR PO (CKD) Hydrochlorothiazide 25 MG DAILY PO (DC) Heparin Sodium (Porcine) 5,000 UNIT Q12HR SUBQ Diphenhydramine HCl 50 MG ASDIR IV (CKD) Immune Globulin 30 GM DAILY IV IV Miscellaneous Supplies 1 EACH Zolpidem Tartrate 5 MG BEDTIME PRN PRN PO Collagenase 1 APPLIC DAILY TOPICAL Dextrose/Water 25 ML ASDIR PRN IV Glucagon 1 MG ASDIR PRN IM Sterile Water 1 ML ASDIR PRN IM Aspirin 81 MG DAILY PO Atorvastatin Calcium 40 MG DAILY PO Acetaminophen 650 MG Q4H PRN PRN PO Cyclobenzaprine HCl 10 MG BID PRN PRN PO Loperamide HCl 2 MG Q6H PRN PRN PO Simethicone 160 MG Q6H PRN PRN PO Hydralazine HCl 10 MG Q6H PRN PRN IV Isosorbide Mononitrate 40 MG BID PO (CKD) Magnesium 100 ML ASDIR PRN IV Magnesium Sulfate 50 ML ASDIR PRN IV Magnesium Sulfate 100 ML ASDIR PRN IV Nutrition assessment: The data set between the solid lines has been im ported from the dietitian's assessment. Any exceptions have been noted under Provider comments. BMI Calculated: 24.6 Nutrition related diagnosis: Overweight Nutrition diagnosis details: BMI 25-29.9 Nutrition problem: INCREASED PROTEIN NEEDS Nutrition etiology: WOUND HEALING Nutrition signs and symptoms: PT W/ MULTIPLE STA GE WOUNDS. Nutrition prescription: -RECOMMEND STEPHANIE NUE CARDIAC DIET (NO RENAL RESTRICTION NEEDS D/T JENNIFER RESOLVED) -NO ENSURE ENLIVE AT THI S TIME D/T PT REFUSED, GOOD APPETITE -RECOMMEND CONTINUE ANGELIA BID TO PROMOTE WOUND HEALING -RECOMMEND SNACK TID BETWEEN MEALS TO PREVENT HYPOGLYCEMIA -RECOMMEND DOUBLE PROTEIN PORTIONS TO ASSIST KCAL/PRO NEEDS -RD TO F/U PER FNS LIELA Schumacher Dietitian name: Ester Cabrera RD LD Assessment completed: 09/04/20 Provider comments on imported dietitian assessme nt: Physical Exam General appearance: alert, awake Head/Eyes: atraumatic Cardiovascular: normal heart sounds, regular rat e rhythm Respiratory: clear to auscultation Abdomen: non-tender Extremities: no clubbing Musculoskeletal: normal inspection Neuro/RADIOTELEGRAPHIST: flaccid bilat LEs Psychiatry: normal affect, normal mood Results Findings/Data: Laboratory Tests 09/07 09/06 0550 1202 Chemistry Sodium (137 - 145 mmol/L) 139 Potassium (3.4 - 5.0 mmol/L) 3.6 Chloride (98 - 107 mmol/L) 103 Carbon Dioxide (22 - 30 mmol/L) 26 BUN (9 - 20 mg/dL) 38 H Creatinine (0.7 - 1.3 mg/dL) 0.9 Glomerular Filtr Rate (>60) 124 Glucose (74 - 106 mg/dL) 114 H POC Glucose (74 - 106 MG/DL) 163 H Calcium (8.4 - 10.2 mg/dL) 8.9 Laboratory Tests 09/07 0550 Hematology WBC (5.0 - 12.0 x10 3/uL) 8.0 RBC (4.70 - 6.10 x10 6/uL) 2.82 L Hgb (14.0 - 18.0 g/dL) 8.6 L Hct (37.0 - 49.0 %) 26.8 L MCV (80 - 94 fL) 95 H MCH (27 - 31 pg) 30.5 MCHC (33 - 37 g/dL) 32.1 L RDW (11.5 - 15.5 %) 16.9 H Plt Count (130 - 400 x10 3/uL) 246 MPV (9.4 - 16.4 fL) 9.5 Neut % (Auto) (43 - 65 %) 80.3 H Lymph % (Auto) (20.5 - 45.5 %) 9.1 L Citrus % (Auto) (5.5 - 11.7 %) 9.9 Eos % (Auto) (0.9 - 2.9 %) 0.1 L Baso % (Auto) (0.2 - 1.0 %) 0.0 L Neut # (Auto) (2.2 - 4.8 x10 3/uL) 6.44 H Lymph # (Auto) (1.3 - 2.9 x10 3/uL) 0.73 L Citrus # (Auto) (0.3 - 0.8 x10 3/uL) 0.79 Eos # (Auto) (0.0 - 0.2 x10 3/uL) 0.01 Baso # (Auto) (0.0 - 0.1 x10 3/uL) 0.00 Immature Gran % (0.0 - 2.0 %) 0.6 Nucleated RBC % (0 - 1.0 %) 0.0 Results: labs reviewed, vital signs stable Diagnosis, Assessment Plan Problem List/A P: 1. Weakness of both lower extremities s/p LP CSF shows a markedly elevated total protein of 178 and low WBC c/w cytoalbuminologic dissociation Neurology following IVIG for five days (last dose 09/08) Continue PT/OT 2. JENNIFER (acute kidney injury) Creatinine stable. nephrology signed off. 3. Sepsis Continue Zuñiga change every month, last changed on 08/21/20 s/p 10 days of meropenem 4. UTI (urinary tract infection) Urine culture positive for Pseudomonas and Ente robacter s/p 10 days meropenem 5. Bacteremia due to Enterobacter species s/p meropenem Infectious disease following, appreciate input 6. Metabolic encephalopathy Resolved 7. H/O cardiac arrest Patient status post PEA, resolved 8. Abnormal MRI of head due to suspected CVA Repeat MRI 07/19/20 showed patchy perive ntricular white matter disease appears improved but not resolved since 06/26/20 and may have related to u nderlying metabolic or toxic disorder and/or vasculitis. DOMINIK showed no intracardiac shunt COn't ASA/statins PT/OT 9. Acute systolic heart failure Resolved Cardiology following, appreciate input 10. Acute CVA (cerebrovascular accident) Suspected to be cardioembolic DOMINIK showed no intracardiac shunt COn't ASA/statins PT/OT 11. Acute on chronic anemia Patient status post 2 units PRBCs Hemoglobin stable now. 12. Hyperkalemia - Stable - Losartan on hold 13. Hypertensive emergency resolved, treating essential HTN Strict control of his BP given aortic dissectio n - Will add hydralazine for tighter BP control 14. Essential hypertension Continue nifedipine, hydralazine, Imdur - titrate medications as needed, added standing hydralazine today 15. Aortic dissection History of type B aortic dissection status post thoracic endovascular aortic repair at outside hospital Continue hydralazine, imdur, HCTZ and nifedipin e BP is stable 16. Multifocal pneumonia s/p meropenem CXR is clear on 08/28/20 17. Acute respiratory failure with hypoxia Resolved, patient was intubated followed by tra cheostomy. -Tracheostomy has been emily aakash and patient is breathing without any difficulty. Now on room air 18. Sacral decubitus ulcer, stage IV continue wound care and frequent turns wound care nurse performed bedside debridement and ordered wound care 19. Hypoglycemia Sugars improved Follow sugar closely 20. Abdominal pain - CTA showing stable Aortic dissection - constipated, will start aggressive bowel rosa men - Tap water enema given yesterday Free Text DxA P Notes Free text DxA P notes: DVT prophylaxis: sq heparin Advance Directives/Code Status: FULL CODE Anticipated discharge date: Pending. Pt will be medically ready tomorrow after last dose of IVIG. at 1207 RPT #:[id number] END OF REPORT 2020-09-07 11:58:00-00:00 [facility] Hospitalist Progress Note REPORT#:[id number] REPORT STATUS: Signed DATE:09/07/20 TIME: 1158 PATIENT: JORGE GOINS UNIT #: [id number] [address] AGE: 35 SEX: M ATTEND: Edmar Altamirano MD ADM AUTHOR: Marquita Betancur * ALL edits or amendments must be made on the [employer] document * Subjective Chief Complaint: Follow up Reports constipation, consitent with constipatio n seen on imaging Review of Systems Constitutional: Denies: generalized weakness. Respiratory: Denies: COATES (dyspnea on exertion), non productiv e cough, productive cough ( sputum), SOB. Cardiovascular: Denies: chest pain, edema, palpitations. GI: Reports: abdominal pain, constipation. Denies: n ausea, vomiting. All systems rev neg: except as marked Objective General VS/I O: Vital Signs: Date Time Temp Pulse Resp B/P B/P Pulse O2 O2 F low FiO2 Mean Ox Delivery Rate 09/07 1103 36.9 101 16 143/76 97.9 100 Room air 09/07 0744 36.7 94 16 142/87 105.7 100 Room air 09/07 0320 36.9 99 19 164/96 118.6 100 09/06 2334 36.5 86 20 157/92 113.8 100 09/06 1923 37.0 95 16 168/86 113.0 99 09/06 1627 37.0 91 17 159/85 109.8 100 Room air 09/06 1204 36.7 98 17 165/84 111.2 100 Room air 24 hour I O ending at 0700: 09/07 0700 09/06 1900 Intake Total 450 900.00 Output Total 900 750 Balance -450 150.00 Intake, IV 300.00 Intake, Oral 450 600 Number 1 Bowel Movements Output, Urine 900 750 PATIENT WEIGHT: Weight (lb): 175 Weight (oz): 4.28 Weight (kg): 79.500 Medications: Active Meds + DC'd Last 24 Hrs Sennosides 2 TAB DAILY PO (UNV) Hydrochlorothiazide 50 MG DAILY PO Sennosides 1 TAB BEDTIME PO (CAN) Docusate Sodium 200 MG DAILY PRN PRN PO Polyethylene Glycol 1 PKT DAILY PRN PRN PO (CKD) Iopamidol 100 ML .STK-MED ONE IV (DC) Diphenhydramine HCl 50 MG ASDIR PO (CKD) Prednisone 50 MG ASDIR PO (CKD) Prednisone 50 MG ASDIR PO (CKD) Prednisone 50 MG ASDIR PO (CKD) Diphenhydramine HCl 50 MG ASDIR PO (CKD) Prednisone 50 MG ASDIR PO (CKD) Prednisone 50 MG ASDIR PO (CKD) Nifedipine 30 MG Q6HR PO Prednisone 50 MG ASDIR PO (CKD) Hydrochlorothiazide 25 MG DAILY PO (DC) Heparin Sodium (Porcine) 5,000 UNIT Q12HR SUBQ Diphenhydramine HCl 50 MG ASDIR IV (CKD) Immune Globulin 30 GM DAILY IV IV Miscellaneous Supplies 1 EACH Zolpidem Tartrate 5 MG BEDTIME PRN PRN PO Collagenase 1 APPLIC DAILY TOPICAL Dextrose/Water 25 ML ASDIR PRN IV Glucagon 1 MG ASDIR PRN IM Sterile Water 1 ML ASDIR PRN IM Aspirin 81 MG DAILY PO Atorvastatin Calcium 40 MG DAILY PO Acetaminophen 650 MG Q4H PRN PRN PO Cyclobenzaprine HCl 10 MG BID PRN PRN PO Loperamide HCl 2 MG Q6H PRN PRN PO Simethicone 160 MG Q6H PRN PRN PO Hydralazine HCl 10 MG Q6H PRN PRN IV Isosorbide Mononitrate 40 MG BID PO (CKD) Magnesium 100 ML ASDIR PRN IV Magnesium Sulfate 50 ML ASDIR PRN IV Magnesium Sulfate 100 ML ASDIR PRN IV Nutrition assessment: The data set between the solid lines has been im ported from the dietitian's assessment. Any exceptions have been noted under Provider comments. BMI Calculated: 24.6 Nutrition related diagnosis: Overweight Nutrition diagnosis details: BMI 25-29.9 Nutrition problem: INCREASED PROTEIN NEEDS Nutrition etiology: WOUND HEALING Nutrition signs and symptoms: PT W/ MULTIPLE STA GE WOUNDS. Nutrition prescription: -RECOMMEND STEPHANIE NUE CARDIAC DIET (NO RENAL RESTRICTION NEEDS D/T JENNIFER RESOLVED) -NO ENSURE ENLIVE AT THI S TIME D/T PT REFUSED, GOOD APPETITE -RECOMMEND CONTINUE ANGELIA BID TO PROMOTE WOUND HEALING -RECOMMEND SNACK TID BETWEEN MEALS TO PREVENT HYPOGLYCEMIA -RECOMMEND DOUBLE PROTEIN PORTIONS TO ASSIST KCAL/PRO NEEDS -RD TO F/U PER FNS LEILA Schumacher Dietitian name: Ester Cabrera RD LD Assessment completed: 09/04/20 Provider comments on imported dietitian assessme nt: Physical Exam General appearance: alert, awake Head/Eyes: atraumatic Cardiovascular: normal heart sounds, regular rat e rhythm Respiratory: clear to auscultation Abdomen: non-tender Extremities: no clubbing Musculoskeletal: normal inspection Neuro/RADIOTELEGRAPHIST: flaccid bilat LEs Psychiatry: normal affect, normal mood Results Findings/Data: Laboratory Tests 09/07 09/06 0550 1202 Chemistry Sodium (137 - 145 mmol/L) 139 Potassium (3.4 - 5.0 mmol/L) 3.6 Chloride (98 - 107 mmol/L) 103 Carbon Dioxide (22 - 30 mmol/L) 26 BUN (9 - 20 mg/dL) 38 H Creatinine (0.7 - 1.3 mg/dL) 0.9 Glomerular Filtr Rate (>60) 124 Glucose (74 - 106 mg/dL) 114 H POC Glucose (74 - 106 MG/DL) 163 H Calcium (8.4 - 10.2 mg/dL) 8.9 Laboratory Tests 09/07 0550 Hematology WBC (5.0 - 12.0 x10 3/uL) 8.0 RBC (4.70 - 6.10 x10 6/uL) 2.82 L Hgb (14.0 - 18.0 g/dL) 8.6 L Hct (37.0 - 49.0 %) 26.8 L MCV (80 - 94 fL) 95 H MCH (27 - 31 pg) 30.5 MCHC (33 - 37 g/dL) 32.1 L RDW (11.5 - 15.5 %) 16.9 H Plt Count (130 - 400 x10 3/uL) 246 MPV (9.4 - 16.4 fL) 9.5 Neut % (Auto) (43 - 65 %) 80.3 H Lymph % (Auto) (20.5 - 45.5 %) 9.1 L Citrus % (Auto) (5.5 - 11.7 %) 9.9 Eos % (Auto) (0.9 - 2.9 %) 0.1 L Baso % (Auto) (0.2 - 1.0 %) 0.0 L Neut # (Auto) (2.2 - 4.8 x10 3/uL) 6.44 H Lymph # (Auto) (1.3 - 2.9 x10 3/uL) 0.73 L Citrus # (Auto) (0.3 - 0.8 x10 3/uL) 0.79 Eos # (Auto) (0.0 - 0.2 x10 3/uL) 0.01 Baso # (Auto) (0.0 - 0.1 x10 3/uL) 0.00 Immature Gran % (0.0 - 2.0 %) 0.6 Nucleated RBC % (0 - 1.0 %) 0.0 Results: labs reviewed, vital signs stable Diagnosis, Assessment Plan Problem List/A P: 1. Weakness of both lower extremities s/p LP CSF shows a markedly elevated total protein of 178 and low WBC c/w cytoalbuminologic dissociation Neurology following IVIG for five days (last dose 09/08) Continue PT/OT 2. JENNIFER (acute kidney injury) Creatinine stable. nephrology signed off. 3. Sepsis Continue Zuñiga change every month, last changed on 08/21/20 s/p 10 days of meropenem 4. UTI (urinary tract infection) Urine culture positive for Pseudomonas and Ente robacter s/p 10 days meropenem 5. Bacteremia due to Enterobacter species s/p meropenem Infectious disease following, appreciate input 6. Metabolic encephalopathy Resolved 7. H/O cardiac arrest Patient status post PEA, resolved 8. Abnormal MRI of head due to suspected CVA Repeat MRI 07/19/20 showed patchy perive ntricular white matter disease appears improved but not resolved since 06/26/20 and may have related to u nderlying metabolic or toxic disorder and/or vasculitis. DOMINIK showed no intracardiac shunt COn't ASA/statins PT/OT 9. Acute systolic heart failure Resolved Cardiology following, appreciate input 10. Acute CVA (cerebrovascular accident) Suspected to be cardioembolic DOMINIK showed no intracardiac shunt COn't ASA/statins PT/OT 11. Acute on chronic anemia Patient status post 2 units PRBCs Hemoglobin stable now. 12. Hyperkalemia - Stable - Losartan on hold 13. Hypertensive emergency resolved, treating essential HTN Strict control of his BP given aortic dissectio n - Will add hydralazine for tighter BP control 14. Essential hypertension Continue nifedipine, hydralazine, Imdur - titrate medications as needed, added standing hydralazine today 15. Aortic dissection History of type B aortic dissection status post thoracic endovascular aortic repair at outside hospital Continue hydralazine, imdur, HCTZ and nifedipin e BP is stable 16. Multifocal pneumonia s/p meropenem CXR is clear on 08/28/20 17. Acute respiratory failure with hypoxia Resolved, patient was intubated followed by tra cheostomy. -Tracheostomy has been emily aakash and patient is breathing without any difficulty. Now on room air 18. Sacral decubitus ulcer, stage IV continue wound care and frequent turns wound care nurse performed bedside debridement and ordered wound care 19. Hypoglycemia Sugars improved Follow sugar closely 20. Abdominal pain - CTA showing stable Aortic dissection - constipated, will start aggressive bowel rosa men - Tap water enema given yesterday Free Text DxA P Notes Free text DxA P notes: DVT prophylaxis: sq heparin Advance Directives/Code Status: FULL CODE Anticipated discharge date: Pending. Pt will be medically ready tomorrow after last dose of IVIG. at 1207 at 1640 RPT #:[id number] END OF REPORT 2020-09-06 14:04:00-00:00 [facility] Hospitalist Progress Note REPORT#:[id number] REPORT STATUS: Signed DATE:09/06/20 TIME: 1404 PATIENT: JORGE GOINS UNIT #: [id number] ROOM/BED: [address] : 87 AGE: 35 SEX: M ATTEND: Edmar Altamirano MD ADM AUTHOR: Marquita Betancur * ALL edits or amendments must be made on the [employer] document * Subjective Chief Complaint: Follow up No overnight events Review of Systems Constitutional: Denies: generalized weakness. Respiratory: Denies: COATES (dyspnea on exertion), non productiv e cough, productive cough ( sputum), SOB, wheezing. Cardiovascular: Denies: chest pain, COATES (dyspnea on exertion), e benton. GI: Denies: abdominal pain, constipation, diarrhea, nausea, vomiting. All systems rev neg: except as marked Objective General VS/I O: Vital Signs: Date Time Temp Pulse Resp B/P B/P Pulse O2 O2 F low FiO2 Mean Ox Delivery Rate 09/06 1204 36.7 98 17 165/84 111.2 100 Room air 09/06 0807 37.0 89 18 155/84 107.8 100 Room air 09/05 2021 36.7 82 14 166/92 116.4 100 Room air 09/05 1620 36.9 80 19 167/99 121.8 100 Room air 24 hour I O ending at 0700: 09/06 0700 09/05 1900 Intake Total 500 800.00 Output Total 1000 700 Balance -500 100.00 Intake, IV 300.00 Intake, Oral 500 500 Number 1 Bowel Movements Output, Urine 1000 700 PATIENT WEIGHT: Weight (lb): 175 Weight (oz): 4.28 Weight (kg): 79.500 Medications: Active Meds + DC'd Last 24 Hrs Hydrochlorothiazide 50 MG DAILY PO (UNV) Iopamidol 100 ML .STK-MED ONE IV (DC) Diphenhydramine HCl 50 MG ASDIR PO (CKD) Prednisone 50 MG ASDIR PO (CKD) Prednisone 50 MG ASDIR PO (CKD) Prednisone 50 MG ASDIR PO (CKD) Sodium Polystyrene Sulfonate 15 GM ONCE ONE PO ( DC) Diphenhydramine HCl 50 MG ASDIR PO (CKD) Prednisone 50 MG ASDIR PO (CKD) Prednisone 50 MG ASDIR PO (CKD) Nifedipine 30 MG Q6HR PO Prednisone 50 MG ASDIR PO (CKD) Hydrochlorothiazide 25 MG DAILY PO (DCr) Heparin Sodium (Porcine) 5,000 UNIT Q12HR SUBQ Diphenhydramine HCl 50 MG ASDIR IV (CKD) Immune Globulin 30 GM DAILY IV IV Miscellaneous Supplies 1 EACH Hydrocodone Bitart/Acetaminophen 1 TAB Q6H PRN P RN PO (DC) Zolpidem Tartrate 5 MG BEDTIME PRN PRN PO Collagenase 1 APPLIC DAILY TOPICAL Dextrose/Water 25 ML ASDIR PRN IV Glucagon 1 MG ASDIR PRN IM Sterile Water 1 ML ASDIR PRN IM Aspirin 81 MG DAILY PO Atorvastatin Calcium 40 MG DAILY PO Acetaminophen 650 MG Q4H PRN PRN PO Cyclobenzaprine HCl 10 MG BID PRN PRN PO Loperamide HCl 2 MG Q6H PRN PRN PO Simethicone 160 MG Q6H PRN PRN PO Hydralazine HCl 10 MG Q6H PRN PRN IV Isosorbide Mononitrate 40 MG BID PO (CKD) Magnesium 100 ML ASDIR PRN IV Magnesium Sulfate 50 ML ASDIR PRN IV Magnesium Sulfate 100 ML ASDIR PRN IV Nutrition assessment: The data set between the solid lines has been im ported from the dietitian's assessment. Any exceptions have been noted under Provider comments. BMI Calculated: 24.6 Nutrition related diagnosis: Overweight Nutrition diagnosis details: BMI 25-29.9 Nutrition problem: INCREASED PROTEIN NEEDS Nutrition etiology: WOUND HEALING Nutrition signs and symptoms: PT W/ MULTIPLE STA GE WOUNDS. Nutrition prescription: -RECOMMEND STEPHANIE NUE CARDIAC DIET (NO RENAL RESTRICTION NEEDS D/T JENNIFER RESOLVED) -NO ENSURE ENLIVE AT THI S TIME D/T PT REFUSED, GOOD APPETITE -RECOMMEND CONTINUE ANGELIA BID TO PROMOTE WOUND HEALING -RECOMMEND SNACK TID BETWEEN MEALS TO PREVENT HYPOGLYCEMIA -RECOMMEND DOUBLE PROTEIN PORTIONS TO ASSIST KCAL/PRO NEEDS -RD TO F/U PER BRAYDEN Schumacher Dietitian name: Ester Cabrera RD LD Assessment completed: 09/04/20 Provider comments on imported dietitian assessme nt: Physical Exam Head/Eyes: atraumatic Cardiovascular: normal heart sounds, regular rat e rhythm Respiratory: clear to auscultation Abdomen: soft Extremities: no clubbing Musculoskeletal: normal inspection Neuro/RADIOTELEGRAPHIST: flaccid bilat LEs Psychiatry: normal affect, normal mood Results Findings/Data: Laboratory Tests 09/06 09/06 1202 0437 Chemistry Sodium (137 - 145 mmol/L) 135 L Potassium (3.4 - 5.0 mmol/L) 4.7 Chloride (98 - 107 mmol/L) 99 Carbon Dioxide (22 - 30 mmol/L) 24 BUN (9 - 20 mg/dL) 28 H Creatinine (0.7 - 1.3 mg/dL) 0.7 Glomerular Filtr Rate (>60) 166 Glucose (74 - 106 mg/dL) 170 H POC Glucose (74 - 106 MG/DL) 163 H Calcium (8.4 - 10.2 mg/dL) 8.9 Laboratory Tests 09/06 0437 Hematology WBC (5.0 - 12.0 x10 3/uL) 5.6 RBC (4.70 - 6.10 x10 6/uL) 2.86 L Hgb (14.0 - 18.0 g/dL) 8.7 L Hct (37.0 - 49.0 %) 27.1 L MCV (80 - 94 fL) 95 H MCH (27 - 31 pg) 30.4 MCHC (33 - 37 g/dL) 32.1 L RDW (11.5 - 15.5 %) 16.6 H Plt Count (130 - 400 x10 3/uL) 245 MPV (9.4 - 16.4 fL) 9.4 Neut % (Auto) (43 - 65 %) 85.4 H Lymph % (Auto) (20.5 - 45.5 %) 8.1 L Citrus % (Auto) (5.5 - 11.7 %) 5.8 Eos % (Auto) (0.9 - 2.9 %) 0.0 L Baso % (Auto) (0.2 - 1.0 %) 0.2 Neut # (Auto) (2.2 - 4.8 x10 3/uL) 4.74 Lymph # (Auto) (1.3 - 2.9 x10 3/uL) 0.45 L Citrus # (Auto) (0.3 - 0.8 x10 3/uL) 0.32 Eos # (Auto) (0.0 - 0.2 x10 3/uL) 0.00 Baso # (Auto) (0.0 - 0.1 x10 3/uL) 0.01 Immature Gran % (0.0 - 2.0 %) 0.5 Nucleated RBC % (0 - 1.0 %) 0.0 Radiology data: Recent Impressions: CAT SCAN - CTA ABD PEL W CONT 09/06 1100 Report Impression - Status: SIGNED Entered: 09/06/2020 1331 IMPRESSION: Severe colonic stool burden, correlate for const ipation. Abdominal aortic dissection as above in the vasc ular dissection. Impression By: [email or web address] - Denny Mohamud MD Results: labs reviewed, vital signs stable Diagnosis, Assessment Plan Problem List/A P: 1. JENNIFER (acute kidney injury) Creatinine stable. nephrology signed off. 2. Sepsis Continue Zuñiga change every month, last changed on 08/21/20 s/p 10 days of meropenem 3. UTI (urinary tract infection) Urine culture positive for Pseudomonas and Ente robacter s/p 10 days meropenem 4. Bacteremia due to Enterobacter species s/p meropenem Infectious disease following, appreciate input 5. Metabolic encephalopathy Resolved 6. H/O cardiac arrest Patient status post PEA, resolved 7. Weakness of both lower extremities s/p LP CSF shows a markedly elevated total protein of 178 and low WBC c/w cytoalbuminologic dissociation Neurology following patient started on IVIG pre sumed GBS Continue PT/OT 8. Abnormal MRI of head due to suspected CVA Repeat MRI 07/19/20 showed patchy perive ntricular white matter disease appears improved but not resolved since 06/26/20 and may have related to u nderlying metabolic or toxic disorder and/or vasculitis. DOMINIK showed no intracardiac shunt COn't ASA/statins PT/OT 9. Acute systolic heart failure Resolved Cardiology following, appreciate input 10. Acute CVA (cerebrovascular accident) Suspected to be cardioembolic DOMINIK showed no intracardiac shunt COn't ASA/statins PT/OT 11. Acute on chronic anemia Patient status post 2 units PRBCs Hemoglobin stable now. 12. Hyperkalemia - Stable - Losartan on hold 13. Hypertensive emergency resolved, treating essential HTN Strict control of his BP given aortic dissectio n 14. Essential hypertension Continue nifedipine, hydralazine, Imdur - BP stable 15. Aortic dissection History of type B aortic dissection status post thoracic endovascular aortic repair at outside hospital Continue hydralazine, imdur and nifedipine BP is stable 16. Multifocal pneumonia s/p meropenem CXR is clear on 08/28/20 17. Acute respiratory failure with hypoxia Resolved, patient was intubated followed by tra cheostomy. -Tracheostomy has been emily aakash and patient is breathing without any difficulty. Now on room air 18. Dyspnea 19. Sacral decubitus ulcer, stage IV continue wound care and frequent turns wound care nurse performed bedside debridement and ordered wound care 20. Hypoglycemia Sugars improved Follow sugar closely 21. Abdominal pain Denies constipation. No association to food. CTA abd obtained Free Text DxA P Notes Free text DxA P notes: DVT prophylaxis: sq heparin Advance Directives/Code Status: FULL CODE Anticipated discharge date: pending. CM is worki daksha on placement. at 1410 RPT #:[id number] END OF REPORT 2020-09-06 14:04:00-00:00 [facility] Hospitalist Progress Note REPORT#:[id number] REPORT STATUS: Signed DATE:09/06/20 TIME: 1404 PATIENT: JORGE GOINS UNIT #: [id number] ROOM/BED: [address] : [birth year] AGE: 35 SEX: M ATTEND: Do zo Altamirano MD ADM AUTHOR: Marquita Betancur * ALL edits or amendments must be made on the [employer]/computer document * Subjective Chief Complaint: Follow up No overnight events Review of Systems Constitutional: Denies: generalized weakness. Respiratory: Denies: COATES (dyspnea on exertion), non productiv e cough, productive cough ( sputum), SOB, wheezing. Cardiovascular: Denies: chest pain, COATES (dyspnea on exertion), e benton. GI: Denies: abdominal pain, constipation, diarrhea, nausea, vomiting. All systems rev neg: except as marked Objective General VS/I O: Vital Signs: Date Time Temp Pulse Resp B/P B/P Pulse O2 O2 Flow FiO2 Mean Ox Delivery Rate 09/06 1204 36.7 98 17 165/84 111.2 100 Room air 09/06 0807 37.0 89 18 155/84 107.8 100 Room ai r 09/05 2021 36.7 82 14 166/92 116.4 100 Room air 09/05 1620 36.9 80 19 167/99 121.8 100 Room air 24 hour I O ending at 0700: 09/06 0700 09/05 1900 Intake Total 500 800.00 Output Total 1000 700 Balance -500 100.00 Intake, IV 300.00 Intake, Oral 500 500 Number 1 Bowel Movements Output, Urine 1000 700 PATIENT WEIGHT: Weight (lb): 175 Weight (oz): 4.28 Weight (kg): 79.500 Medications: Active Meds + DC'd Last 24 Hrs Hydrochlorothiazide 50 MG DAILY PO (UNV) Iopamidol 100 ML .STK-MED ONE IV (DC) Diphenhydramine HCl 50 MG ASDIR PO (CKD) Prednisone 50 MG ASDIR PO (CKD) Prednisone 50 MG ASDIR PO (CKD) Prednisone 50 MG ASDIR PO (CKD) Sodium Polystyrene Sulfonate 15 GM ONCE ONE PO ( DC) Diphenhydramine HCl 50 MG ASDIR PO (CKD) Prednisone 50 MG ASDIR PO (CKD) Prednisone 50 MG ASDIR PO (CKD) Nifedipine 30 MG Q6HR PO Prednisone 50 MG ASDIR PO (CKD) Hydrochlorothiazide 25 MG DAILY PO (DCr) Heparin Sodium (Porcine) 5,000 UNIT Q12HR SUBQ Diphenhydramine HCl 50 MG ASDIR IV (CKD) Immune Globulin 30 GM DAILY IV IV Miscellaneous Supplies 1 EACH Hydrocodone Bitart/Acetaminophen 1 TAB Q6H PRN P RN PO (DC) Zolpidem Tartrate 5 MG BEDTIME PRN PRN PO Collagenase 1 APPLIC DAILY TOPICAL Dextrose/Water 25 ML ASDIR PRN IV Glucagon 1 MG ASDIR PRN IM Sterile Water 1 ML ASDIR PRN IM Aspirin 81 MG DAILY PO Atorvastatin Calcium 40 MG DAILY PO Acetaminophen 650 MG Q4H PRN PRN PO Cyclobenzaprine HCl 10 MG BID PRN PRN PO Loperamide HCl 2 MG Q6H PRN PRN PO Simethicone 160 MG Q6H PRN PRN PO Hydralazine HCl 10 MG Q6H PRN PRN IV Isosorbide Mononitrate 40 MG BID PO (CKD) Magnesium 100 ML ASDIR PRN IV Magnesium Sulfate 50 ML ASDIR PRN IV Magnesium Sulfate 100 ML ASDIR PRN IV Nutrition assessment: The data set between the solid lines has been im ported from the dietitian's assessment. Any exceptions have been noted under Provider comments. BMI Calculated: 24.6 Nutrition related diagnosis: Overweight Nutrition diagnosis details: BMI 25-29.9 Nutrition problem: INCREASED PROTEIN NEEDS Nutrition etiology: WOUND HEALING Nutrition signs and symptoms: PT W/ MULTIPLE STA GE WOUNDS. Nutrition prescription: -RECOMMEND STEPHANIE NUE CARDIAC DIET (NO RENAL RESTRICTION NEEDS D/T JENNIFER RESOLVED) -NO ENSURE ENLIVE AT THI S TIME D/T PT REFUSED, GOOD APPETITE -RECOMMEND CONTINUE ANGELIA BID TO PROMOTE WOUND HEALING -RECOMMEND SNACK TID BETWEEN MEALS TO PREVENT HYPOGLYCEMIA -RECOMMEND DOUBLE PROTEIN PORTIONS TO ASSIST KCAL/PRO NEEDS -RD TO F/U PER BRAYDEN Schumacher Dietitian name: Ester Cabrera RD LD Assessment completed: 09/04/20 Provider comments on imported dietitian assessme nt: Physical Exam Head/Eyes: atraumatic Cardiovascular: normal heart sounds, regular rat e rhythm Respiratory: clear to auscultation Abdomen: soft Extremities: no clubbing Musculoskeletal: normal inspection Neuro/RADIOTELEGRAPHIST: flaccid bilat LEs Psychiatry: normal affect, normal mood Results Findings/Data: Laboratory Tests 09/06 09/06 1202 0437 Chemistry Sodium (137 - 145 mmol/L) 135 L Potassium (3.4 - 5.0 mmol/L) 4.7 Chloride (98 - 107 mmol/L) 99 Carbon Dioxide (22 - 30 mmol/L) 24 BUN (9 - 20 mg/dL) 28 H Creatinine (0.7 - 1.3 mg/dL) 0.7 Glomerular Filtr Rate (>60) 166 Glucose (74 - 106 mg/dL) 170 H POC Glucose (74 - 106 MG/DL) 163 H Calcium (8.4 - 10.2 mg/dL) 8.9 Laboratory Tests 09/06 0437 Hematology WBC (5.0 - 12.0 x10 3/uL) 5.6 RBC (4.70 - 6.10 x10 6/uL) 2.86 L Hgb (14.0 - 18.0 g/dL) 8.7 L Hct (37.0 - 49.0 %) 27.1 L MCV (80 - 94 fL) 95 H MCH (27 - 31 pg) 30.4 MCHC (33 - 37 g/dL) 32.1 L RDW (11.5 - 15.5 %) 16.6 H Plt Count (130 - 400 x10 3/uL) 245 MPV (9.4 - 16.4 fL) 9.4 Neut % (Auto) (43 - 65 %) 85.4 H Lymph % (Auto) (20.5 - 45.5 %) 8.1 L Citrus % (Auto) (5.5 - 11.7 %) 5.8 Eos % (Auto) (0.9 - 2.9 %) 0.0 L Baso % (Auto) (0.2 - 1.0 %) 0.2 Neut # (Auto) (2.2 - 4.8 x10 3/uL) 4.74 Lymph # (Auto) (1.3 - 2.9 x10 3/uL) 0.45 L Citrus # (Auto) (0.3 - 0.8 x10 3/uL) 0.32 Eos # (Auto) (0.0 - 0.2 x10 3/uL) 0.00 Baso # (Auto) (0.0 - 0.1 x10 3/uL) 0.01 Immature Gran % (0.0 - 2.0 %) 0.5 Nucleated RBC % (0 - 1.0 %) 0.0 Radiology data: Recent Impressions: CAT SCAN - CTA ABD PEL W CONT 09/06 1100 Report Impression - Status: SIGNED Entered: 09/06/2020 1331 IMPRESSION: Severe colonic stool burden, correlate for const ipation. Abdominal aortic dissection as above in the vasc ular dissection. Impression By: [email or web address] - Denny Mohamud MD Results: labs reviewed, vital signs stable Diagnosis, Assessment Plan Problem List/A P: 1. JENNIFER (acute kidney injury) Creatinine stable. nephrology signed off. 2. Sepsis Continue Zuñiga change every month, last changed on 08/21/20 s/p 10 days of meropenem 3. UTI (urinary tract infection) Urine culture positive for Pseudomonas and Ente robacter s/p 10 days meropenem 4. Bacteremia due to Enterobacter species s/p meropenem Infectious disease following, appreciate input 5. Metabolic encephalopathy Resolved 6. H/O cardiac arrest Patient status post PEA, resolved 7. Weakness of both lower extremities s/p LP CSF shows a markedly elevated total protein of 178 and low WBC c/w cytoalbuminologic dissociation Neurology following patient started on IVIG pre sumed GBS Continue PT/OT 8. Abnormal MRI of head due to suspected CVA Repeat MRI 07/19/20 showed patchy perive ntricular white matter disease appears improved but not resolved since 06/26/20 and may have related to u nderlying metabolic or toxic disorder and/or vasculitis. DOMINIK showed no intracardiac shunt COn't ASA/statins PT/OT 9. Acute systolic heart failure Resolved Cardiology following, appreciate input 10. Acute CVA (cerebrovascular accident) Suspected to be cardioembolic DOMINIK showed no intracardiac shunt COn't ASA/statins PT/OT 11. Acute on chronic anemia Patient status post 2 units PRBCs Hemoglobin stable now. 12. Hyperkalemia - Stable - Losartan on hold 13. Hypertensive emergency resolved, treating essential HTN Strict control of his BP given aortic dissectio n 14. Essential hypertension Continue nifedipine, hydralazine, Imdur - BP stable 15. Aortic dissection History of type B aortic dissection status post thoracic endovascular aortic repair at outside hospital Continue hydralazine, imdur and nifedipine BP is stable 16. Multifocal pneumonia s/p meropenem CXR is clear on 08/28/20 17. Acute respiratory failure with hypoxia Resolved, patient was intubated followed by tra cheostomy. -Tracheostomy has been emily aakash and patient is breathing without any difficulty. Now on room air 18. Dyspnea 19. Sacral decubitus ulcer, stage IV continue wound care and frequent turns wound care nurse performed bedside debridement and ordered wound care 20. Hypoglycemia Sugars improved Follow sugar closely 21. Abdominal pain Denies constipation. No association to food. CTA abd obtained Free Text DxA P Notes Free text DxA P notes: DVT prophylaxis: sq heparin Advance Directives/Code Status: FULL CODE Anticipated discharge date: pending. CM is worki ng on placement. at 1410 Electronically Signed by Raphael Davila MD on at 0749 RPT #:[id number] END OF REPORT 2020-09-05 13:17:00-00:00 [facility] Neurology Progress Note REPORT#:[id number] REPORT STATUS: Signed DATE:09/05/20 TIME: 1317 PATIENT: JORGE GOINS UNIT #: [id number] ROOM/BED: [address] : [birth year] AGE: 35 SEX: M ATTEND: Edmar Altamirano MD ADM AUTHOR: Mynor Murillo * ALL edits or amendments must be made on the [employer] document * Subjective Comments: no new events neurologically, IVIG initiated Objective General VS: Last Documented: Result Date Time Pulse Ox 100 09/05 1132 B/P 154/86 09/05 1132 B/P Mean 109.1 09/05 1132 O2 Delivery Room air 09/05 1132 Temp 98.4 09/05 1132 Pulse 78 09/05 1132 Resp 18 09/05 1132 FiO2 21 08/06 0823 O2 Flow Rate 5 07/28 2322 PATIENT WEIGHT: Weight (lb): 175 Weight (oz): 4.28 Weight (kg): 79.500 Medications Current Home Medications ALBUTEROL (PROAIR HFA 90 MCG/ACT 8.5 GM) 2 PUFF INH RTQ6H PRN PRN SOB ASPIRIN EC (ECOTRIN) 81 MG PO DAILY CARVEDILOL (COREG) 25 MG PO BID MEALS ACETAMINOPHEN/CODEINE (TYLENOL WITH CODE INE #4 300/60 MG) 1 TAB PO Q6H PRN PRN PAIN ATORVASTATIN (LIPITOR) 20 MG PO BEDTIME LOSARTAN (COZAAR) 100 MG PO DAILY NIFEdipine CC (ADALAT CC) 90 MG PO Q12HR HYDROCHLOROTHIAZIDE (HYDRODIURIL) 25 MG PO DAILY Active Meds + DC'd Last 24 Hrs Diphenhydramine HCl 50 MG ASDIR PO (CKD) Prednisone 50 MG ASDIR PO (CKD) Prednisone 50 MG ASDIR PO (CKD) Nifedipine 30 MG Q6HR PO Prednisone 50 MG ASDIR PO (CKD) Hydrochlorothiazide 25 MG DAILY PO Heparin Sodium (Porcine) 5,000 UNIT Q12HR SUBQ Diphenhydramine HCl 50 MG ASDIR IV (CKD) Immune Globulin 30 GM DAILY IV IV Miscellaneous Supplies 1 EACH Hydrocodone Bitart/Acetaminophen 1 TAB Q6H PRN P RN PO Zolpidem Tartrate 5 MG BEDTIME PRN PRN PO Collagenase 1 APPLIC DAILY TOPICAL Dextrose/Water 25 ML ASDIR PRN IV Glucagon 1 MG ASDIR PRN IM Sterile Water 1 ML ASDIR PRN IM Aspirin 81 MG DAILY PO Atorvastatin Calcium 40 MG DAILY PO Acetaminophen 650 MG Q4H PRN PRN PO Cyclobenzaprine HCl 10 MG BID PRN PRN PO Loperamide HCl 2 MG Q6H PRN PRN PO Simethicone 160 MG Q6H PRN PRN PO Hydralazine HCl 10 MG Q6H PRN PRN IV Isosorbide Mononitrate 40 MG BID PO (CKD) Magnesium 100 ML ASDIR PRN IV Magnesium Sulfate 50 ML ASDIR PRN IV Magnesium Sulfate 100 ML ASDIR PRN IV Nifedipine 30 MG Q6H PO (DC) Results Findings/Data: Laboratory Tests 09/05 09/04 1130 2002 Chemistry POC Glucose (74 - 106 MG/DL) 120 H 99 Results: labs reviewed, current med profile rev' d Diagnosis, Assessment Plan Problem List/A P: 1. Metabolic encephalopathy 2. Critical illness myopathy 3. Hypertensive urgency Free Text A P: Assessment Lower extremity paraplegia in a patient with pro longed hospital stay. He has areflexia on exam and 0 out of 5 power. MRI of the spine to r/o cord infarct or other pr ocess has been attempted in [place] however given high degree of artifact the scan was aborted. Due to the degree of artifact generated by these stent ellis ts the spine was not visible and thus the study was canceled. 1. Lower extremity weakness- GBS vs critical ill ness myopathy 2. Acute encephalopathy - resolved 3. Acute ischemic strokes, suspect embolic sourc e, no PFO on DOMINIK, on asa and statin 4. s/p PEA arrest 06/11/20 5. hypertensive emergency -resolved 6. acute respiratory failure, resolved 7. type b aortic dissection Plan -Preliminary CSF studies show cytoalbuminologic dissociation -Given the history and exam and CSF findings, IV IG x 5 days for presumed GBS -Continue PT and OT We will follow Electronically Signed by Mynor Murillo 09/05/20 at 1319 RPT #:[id number] END OF REPORT 2020-09-05 13:00:00-00:00 [facility] Hospitalist Progress Note REPORT#:[id number] REPORT STATUS: Signed DATE:09/05/20 TIME: 1300 PATIENT: JORGE GOINS UNIT #: [id number] ROOM/BED: [address] : [birth year] AGE: 35 SEX: M ATTEND: Edmar Altamirano MD ADM AUTHOR: Marquita Betancur * ALL edits or amendments must be made on the el [employer]/computer document * Subjective Chief Complaint: No new c/o CSF shows cytoalbuminologic dissociation Review of Systems Constitutional: Denies: generalized weakness. Respiratory: Denies: COATES (dyspnea on exertion), non productiv e cough, productive cough ( sputum), SOB. Cardiovascular: Denies: chest pain, edema. GI: Denies: abdominal pain, constipation, diarrhea, nausea, vomiting. Neuro: Reports: focal weakness (BLE). All systems rev neg: except as marked Objective General VS/I O: Vital Signs: Date Time Temp Pulse Resp B/P B/P Pulse O2 O2 F low FiO2 Mean Ox Delivery Rate 09/05 1132 36.9 78 18 154/86 109.1 100 Room air 09/05 0757 36.9 85 18 183/100 0.0 100 Room air 09/05 0448 36.5 90 14 146/75 98.5 99 Room air 09/05 0006 36.9 88 14 138/72 94.2 100 Room air 09/04 2005 36.9 88 16 133/77 95.4 99 Nasal cannula 09/04 1639 37.2 91 19 139/82 101.2 100 Room air 24 hour I O ending at 0700: 09/05 0700 09/04 1900 Intake Total 1500.00 Output Total 1300 Balance 200.00 Intake, IV 300.00 Intake, Oral 1200 Output, Urine 1300 PATIENT WEIGHT: Weight (lb): 175 Weight (oz): 4.28 Weight (kg): 79.500 Medications: Active Meds + DC'd Last 24 Hrs Diphenhydramine HCl 50 MG ASDIR PO (CKD) Prednisone 50 MG ASDIR PO (CKD) Prednisone 50 MG ASDIR PO (CKD) Nifedipine 30 MG Q6HR PO Prednisone 50 MG ASDIR PO (CKD) Hydrochlorothiazide 25 MG DAILY PO Heparin Sodium (Porcine) 5,000 UNIT Q12HR SUBQ Diphenhydramine HCl 50 MG ASDIR IV (CKD) Immune Globulin 30 GM DAILY IV IV Miscellaneous Supplies 1 EACH Hydrocodone Bitart/Acetaminophen 1 TAB Q6H PRN P RN PO Zolpidem Tartrate 5 MG BEDTIME PRN PRN PO Collagenase 1 APPLIC DAILY TOPICAL Dextrose/Water 25 ML ASDIR PRN IV Glucagon 1 MG ASDIR PRN IM Sterile Water 1 ML ASDIR PRN IM Aspirin 81 MG DAILY PO Atorvastatin Calcium 40 MG DAILY PO Acetaminophen 650 MG Q4H PRN PRN PO Cyclobenzaprine HCl 10 MG BID PRN PRN PO Loperamide HCl 2 MG Q6H PRN PRN PO Simethicone 160 MG Q6H PRN PRN PO Hydralazine HCl 10 MG Q6H PRN PRN IV Isosorbide Mononitrate 40 MG BID PO (CKD) Magnesium 100 ML ASDIR PRN IV Magnesium Sulfate 50 ML ASDIR PRN IV Magnesium Sulfate 100 ML ASDIR PRN IV Nifedipine 30 MG Q6H PO (DC) Nutrition assessment: The data set between the solid lines has been im ported from the dietitian's assessment. Any exceptions have been noted under Provider comments. BMI Calculated: 24.6 Nutrition related diagnosis: Overweight Nutrition diagnosis details: BMI 25-29.9 Nutrition problem: INCREASED PROTEIN NEEDS Nutrition etiology: WOUND HEALING Nutrition signs and symptoms: PT W/ MULTIPLE STA GE WOUNDS. Nutrition prescription: -RECOMMEND STEPHANIE NUE CARDIAC DIET (NO RENAL RESTRICTION NEEDS D/T JENNIFER RESOLVED) -NO ENSURE ENLIVE AT THI S TIME D/T PT REFUSED, GOOD APPETITE -RECOMMEND CONTINUE ANGELIA BID TO PROMOTE WOUND HEALING -RECOMMEND SNACK TID BETWEEN MEALS TO PREVENT HYPOGLYCEMIA -RECOMMEND DOUBLE PROTEIN PORTIONS TO ASSIST KCAL/PRO NEEDS -RD TO F/U PER FNS LEILA Schumacher Dietitian name: JONNATHAN Fine Assessment completed: 09/04/20 Provider comments on imported dietitian assessme nt: Physical Exam General appearance: alert, awake Head/Eyes: atraumatic Cardiovascular: normal heart sounds, regular rat e rhythm Respiratory: clear to auscultation Abdomen: soft Extremities: no clubbing Musculoskeletal: normal inspection Neuro/RADIOTELEGRAPHIST: flaccid bilat LEs Psychiatry: normal affect, normal mood Results Findings/Data: Laboratory Tests 09/05 09/04 1130 2002 Chemistry POC Glucose (74 - 106 MG/DL) 120 H 99 Results: labs reviewed, vital signs stable Diagnosis, Assessment Plan Problem List/A P: 1. JENNIFER (acute kidney injury) Creatinine stable. nephrology signed off. 2. Sepsis Continue Zuñiga change every month, last changed on 08/21/20 s/p 10 days of meropenem 3. UTI (urinary tract infection) Urine culture positive for Pseudomonas and Ente robacter s/p 10 days meropenem 4. Bacteremia due to Enterobacter species s/p meropenem Infectious disease following, appreciate input 5. Metabolic encephalopathy Resolved 6. H/O cardiac arrest Patient status post PEA, resolved 7. Weakness of both lower extremities s/p LP CSF shows a markedly elevated total protein of 178 and low WBC c/w cytoalbuminologic dissociation Neurology following patient started on IVIG pre sumed GBS Continue PT/OT 8. Abnormal MRI of head due to suspected CVA Repeat MRI 07/19/20 showed patchy perive ntricular white matter disease appears improved but not resolved since 06/26/20 and may have related to u nderlying metabolic or toxic disorder and/or vasculitis. DOMINIK showed no intracardiac shunt COn't ASA/statins PT/OT 9. Acute systolic heart failure Resolved Cardiology following, appreciate input 10. Acute CVA (cerebrovascular accident) Suspected to be cardioembolic DOMINIK showed no intracardiac shunt COn't ASA/statins PT/OT 11. Acute on chronic anemia Patient status post 2 units PRBCs Hemoglobin stable now. 12. Hyperkalemia - Stable - Losartan on hold 13. Hypertensive emergency resolved, treating essential HTN Strict control of his BP given aortic dissectio n 14. Essential hypertension Continue nifedipine, hydralazine, Imdur - BP stable 15. Aortic dissection History of type B aortic dissection status post thoracic endovascular aortic repair at outside hospital Continue hydralazine, imdur and nifedipine BP is stable 16. Multifocal pneumonia s/p meropenem CXR is clear on 08/28/20 17. Acute respiratory failure with hypoxia Resolved, patient was intubated followed by tra cheostomy. -Tracheostomy has been emily aakash and patient is breathing without any difficulty. Now on room air 18. Dyspnea 19. Sacral decubitus ulcer, stage IV continue wound care and frequent turns wound care nurse performed bedside debridement and ordered wound care 20. Hypoglycemia Sugars improved Follow sugar closely 21. Abdominal pain Denies constipation. No association to food. CTA abd pending Free Text DxA P Notes Free text DxA P notes: DVT prophylaxis: sq heparin Advance Directives/Code Status: FULL CODE Anticipated discharge date: pending. CM is ashley crooks on placement. at 1304 RPT #:[id number] END OF REPORT 2020-09-05 13:00:00-00:00 [facility] Hospitalist Progress Note REPORT#:[id number] REPORT STATUS: Signed DATE:09/05/20 TIME: 1300 PATIENT: JORGE GOINS UNIT #: [id number] ROOM/BED: [address] : [birth year] AGE: 35 SEX: M ATTEND: Edmar Altamirano MD ADM AUTHOR: Marquita Betancur * ALL edits or amendments must be made on the [employer] document * Subjective Chief Complaint: No new c/o CSF shows cytoalbuminologic dissociation Review of Systems Constitutional: Denies: generalized weakness. Respiratory: Denies: COATES (dyspnea on exertion), non productiv e cough, productive cough ( sputum), SOB. Cardiovascular: Denies: chest pain, edema. GI: Denies: abdominal pain, constipation, diarrhea, nausea, vomiting. Neuro: Reports: focal weakness (BLE). All systems rev neg: except as marked Objective General VS/I O: Vital Signs: Date Time Temp Pulse Resp B/P B/P Pulse O2 O2 F low FiO2 Mean Ox Delivery Rate 09/05 1132 36.9 78 18 154/86 109.1 100 Room ai r 09/05 0757 36.9 85 18 183/100 0.0 100 Room air 09/05 0448 36.5 90 14 146/75 98.5 99 Room air 09/05 0006 36.9 88 14 138/72 94.2 100 Room air 09/04 2006 36.9 88 16 133/77 95.4 99 Nasal cannula 09/04 1639 37.2 91 19 139/82 101.2 100 Room air 24 hour I O ending at 0700: 09/05 0700 09/04 1900 Intake Total 1500.00 Output Total 1300 Balance 200.00 Intake, IV 300.00 Intake, Oral 1200 Output, Urine 1300 PATIENT WEIGHT: Weight (lb): 175 Weight (oz): 4.28 Weight (kg): 79.500 Medications: Active Meds + DC'd Last 24 Hrs Diphenhydramine HCl 50 MG ASDIR PO (CKD) Prednisone 50 MG ASDIR PO (CKD) Prednisone 50 MG ASDIR PO (CKD) Nifedipine 30 MG Q6HR PO Prednisone 50 MG ASDIR PO (CKD) Hydrochlorothiazide 25 MG DAILY PO Heparin Sodium (Porcine) 5,000 UNIT Q12HR SUBQ Diphenhydramine HCl 50 MG ASDIR IV (CKD) Immune Globulin 30 GM DAILY IV IV Miscellaneous Supplies 1 EACH Hydrocodone Bitart/Acetaminophen 1 TAB Q6H PRN P RN PO Zolpidem Tartrate 5 MG BEDTIME PRN PRN PO Collagenase 1 APPLIC DAILY TOPICAL Dextrose/Water 25 ML ASDIR PRN IV Glucagon 1 MG ASDIR PRN IM Sterile Water 1 ML ASDIR PRN IM Aspirin 81 MG DAILY PO Atorvastatin Calcium 40 MG DAILY PO Acetaminophen 650 MG Q4H PRN PRN PO Cyclobenzaprine HCl 10 MG BID PRN PRN PO Loperamide HCl 2 MG Q6H PRN PRN PO Simethicone 160 MG Q6H PRN PRN PO Hydralazine HCl 10 MG Q6H PRN PRN IV Isosorbide Mononitrate 40 MG BID PO (CKD) Magnesium 100 ML ASDIR PRN IV Magnesium Sulfate 50 ML ASDIR PRN IV Magnesium Sulfate 100 ML ASDIR PRN IV Nifedipine 30 MG Q6H PO (DC) Nutrition assessment: The data set between the solid lines has been im ported from the dietitian's assessment. Any exceptions have been noted under Provider comments. BMI Calculated: 24.6 Nutrition related diagnosis: Overweight Nutrition diagnosis details: BMI 25-29.9 Nutrition problem: INCREASED PROTEIN NEEDS Nutrition etiology: WOUND HEALING Nutrition signs and symptoms: PT W/ MULTIPLE STA GE WOUNDS. Nutrition prescription: -RECOMMEND STEPHANIE NUE CARDIAC DIET (NO RENAL RESTRICTION NEEDS D/T JENNIFER RESOLVED) -NO ENSURE ENLIVE AT THI S TIME D/T PT REFUSED, GOOD APPETITE -RECOMMEND CONTINUE ANGELIA BID TO PROMOTE WOUND HEALING -RECOMMEND SNACK TID BETWEEN MEALS TO PREVENT HYPOGLYCEMIA -RECOMMEND DOUBLE PROTEIN PORTIONS TO ASSIST KCAL/PRO NEEDS -RD TO F/U PER BRAYDEN Schumacher Dietitian name: Ester Cabrera RD LD Assessment completed: 09/04/20 Provider comments on imported dietitian assessme nt: Physical Exam General appearance: alert, awake Head/Eyes: atraumatic Cardiovascular: normal heart sounds, regular rat e rhythm Respiratory: clear to auscultation Abdomen: soft Extremities: no clubbing Musculoskeletal: normal inspection Neuro/RADIOTELEGRAPHIST: flaccid bilat LEs Psychiatry: normal affect, normal mood Results Findings/Data: Laboratory Tests 09/05 09/04 1130 2002 Chemistry POC Glucose (74 - 106 MG/DL) 120 H 99 Results: labs reviewed, vital signs stable Diagnosis, Assessment Plan Problem List/A P: 1. JENNIFER (acute kidney injury) Creatinine stable. nephrology signed off. 2. Sepsis Continue Zuñiga change every month, last changed on 08/21/20 s/p 10 days of meropenem 3. UTI (urinary tract infection) Urine culture positive for Pseudomonas and Ente robacter s/p 10 days meropenem 4. Bacteremia due to Enterobacter species s/p meropenem Infectious disease following, appreciate input 5. Metabolic encephalopathy Resolved 6. H/O cardiac arrest Patient status post PEA, resolved 7. Weakness of both lower extremities s/p LP CSF shows a markedly elevated total protein of 178 and low WBC c/w cytoalbuminologic dissociation Neurology following patient started on IVIG pre sumed GBS Continue PT/OT 8. Abnormal MRI of head due to suspected CVA Repeat MRI 07/19/20 showed patchy perive ntricular white matter disease appears improved but not resolved since 06/26/20 and may have related to u nderlying metabolic or toxic disorder and/or vasculitis. DOMINIK showed no intracardiac shunt COn't ASA/statins PT/OT 9. Acute systolic heart failure Resolved Cardiology following, appreciate input 10. Acute CVA (cerebrovascular accident) Suspected to be cardioembolic DOMINIK showed no intracardiac shunt COn't ASA/statins PT/OT 11. Acute on chronic anemia Patient status post 2 units PRBCs Hemoglobin stable now. 12. Hyperkalemia - Stable - Losartan on hold 13. Hypertensive emergency resolved, treating essential HTN Strict control of his BP given aortic dissectio n 14. Essential hypertension Continue nifedipine, hydralazine, Imdur - BP stable 15. Aortic dissection History of type B aortic dissection status post thoracic endovascular aortic repair at outside hospital Continue hydralazine, imdur and nifedipine BP is stable 16. Multifocal pneumonia s/p meropenem CXR is clear on 08/28/20 17. Acute respiratory failure with hypoxia Resolved, patient was intubated followed by tra cheostomy. -Tracheostomy has been emily aakash and patient is breathing without any difficulty. Now on room air 18. Dyspnea 19. Sacral decubitus ulcer, stage IV continue wound care and frequent turns wound care nurse performed bedside debridement and ordered wound care 20. Hypoglycemia Sugars improved Follow sugar closely 21. Abdominal pain Denies constipation. No association to food. CTA abd pending Free Text DxA P Notes Free text DxA P notes: DVT prophylaxis: sq heparin Advance Directives/Code Status: FULL CODE Anticipated discharge date: pending. CM is worki ng on placement. at 1304 at 1305 RPT #:[id number] END OF REPORT 2020-09-05 13:00:00-00:00 [facility] Hospitalist Progress Note REPORT#:[id number] REPORT STATUS: Signed DATE:09/05/20 TIME: 1300 PATIENT: JORGE GOINS UNIT #: [id number] ROOM/BED: [address] : [birth year] AGE: 35 SEX: M ATTEND: Do oz Altamirano MD ADM AUTHOR: Marquita Betancur * ALL edits or amendments must be made on the [employer]/computer document * See Addendum Subjective Chief Complaint: No new c/o CSF shows cytoalbuminologic dissociation Review of Systems Constitutional: Denies: generalized weakness. Respiratory: Denies: COATES (dyspnea on exertion), non productiv e cough, productive cough ( sputum), SOB. Cardiovascular: Denies: chest pain, edema. GI: Denies: abdominal pain, constipation, diarrhea, nausea, vomiting. Neuro: Reports: focal weakness (BLE). All systems rev neg: except as marked Objective General VS/I O: Vital Signs: Date Time Temp Pulse Resp B/P B/P Pulse O2 O2 F low FiO2 Mean Ox Delivery Rate 09/05 1132 36.9 78 18 154/86 109.1 100 Room air 09/05 0757 36.9 85 18 183/100 0.0 100 Room air 09/05 0448 36.5 90 14 146/75 98.5 99 Room air 09/05 0006 36.9 88 14 138/72 94.2 100 Room air 09/04 2005 36.9 88 16 133/77 95.4 99 Nasal cannula 09/04 1639 37.2 91 19 139/82 101.2 100 Room air 24 hour I O ending at 0700: 09/05 0700 09/04 1900 Intake Total 1500.00 Output Total 1300 Balance 200.00 Intake, IV 300.00 Intake, Oral 1200 Output, Urine 1300 PATIENT WEIGHT: Weight (lb): 175 Weight (oz): 4.28 Weight (kg): 79.500 Medications: Active Meds + DC'd Last 24 Hrs Diphenhydramine HCl 50 MG ASDIR PO (CKD) Prednisone 50 MG ASDIR PO (CKD) Prednisone 50 MG ASDIR PO (CKD) Nifedipine 30 MG Q6HR PO Prednisone 50 MG ASDIR PO (CKD) Hydrochlorothiazide 25 MG DAILY PO Heparin Sodium (Porcine) 5,000 UNIT Q12HR SUBQ Diphenhydramine HCl 50 MG ASDIR IV (CKD) Immune Globulin 30 GM DAILY IV IV Miscellaneous Supplies 1 EACH Hydrocodone Bitart/Acetaminophen 1 TAB Q6H PRN P RN PO Zolpidem Tartrate 5 MG BEDTIME PRN PRN PO Collagenase 1 APPLIC DAILY TOPICAL Dextrose/Water 25 ML ASDIR PRN IV Glucagon 1 MG ASDIR PRN IM Sterile Water 1 ML ASDIR PRN IM Aspirin 81 MG DAILY PO Atorvastatin Calcium 40 MG DAILY PO Acetaminophen 650 MG Q4H PRN PRN PO Cyclobenzaprine HCl 10 MG BID PRN PRN PO Loperamide HCl 2 MG Q6H PRN PRN PO Simethicone 160 MG Q6H PRN PRN PO Hydralazine HCl 10 MG Q6H PRN PRN IV Isosorbide Mononitrate 40 MG BID PO (CKD) Magnesium 100 ML ASDIR PRN IV Magnesium Sulfate 50 ML ASDIR PRN IV Magnesium Sulfate 100 ML ASDIR PRN IV Nifedipine 30 MG Q6H PO (DC) Nutrition assessment: The data set between the solid lines has been im ported from the dietitian's assessment. Any exceptions have been noted under Provider comments. BMI Calculated: 24.6 Nutrition related diagnosis: Overweight Nutrition diagnosis details: BMI 25-29.9 Nutrition problem: INCREASED PROTEIN NEEDS Nutrition etiology: WOUND HEALING Nutrition signs and symptoms: PT W/ MULTIPLE STA GE WOUNDS. Nutrition prescription: -RECOMMEND STEPHANIE NUE CARDIAC DIET (NO RENAL RESTRICTION NEEDS D/T JENNIFER RESOLVED) -NO ENSURE ENLIVE AT THI S TIME D/T PT REFUSED, GOOD APPETITE -RECOMMEND CONTINUE ANGELIA BID TO PROMOTE WOUND HEALING -RECOMMEND SNACK TID BETWEEN MEALS TO PREVENT HYPOGLYCEMIA -RECOMMEND DOUBLE PROTEIN PORTIONS TO ASSIST KCAL/PRO NEEDS -RD TO F/U PER BRAYDEN Schumacher Dietitian name: JONNATHAN Fine Assessment completed: 09/04/20 Provider comments on imported dietitian assessme nt: Physical Exam General appearance: alert, awake Head/Eyes: atraumatic Cardiovascular: normal heart sounds, regular rat e rhythm Respiratory: clear to auscultation Abdomen: soft Extremities: no clubbing Musculoskeletal: normal inspection Neuro/RADIOTELEGRAPHIST: flaccid bilat LEs Psychiatry: normal affect, normal mood Results Findings/Data: Laboratory Tests 09/05 09/04 1130 2002 Chemistry POC Glucose (74 - 106 MG/DL) 120 H 99 Results: labs reviewed, vital signs stable Diagnosis, Assessment Plan Problem List/A P: 1. JENNIFER (acute kidney injury) Creatinine stable. nephrology signed off. 2. Sepsis Continue Zuñiga change every month, last changed on 08/21/20 s/p 10 days of meropenem 3. UTI (urinary tract infection) Urine culture positive for Pseudomonas and Ente robacter s/p 10 days meropenem 4. Bacteremia due to Enterobacter species s/p meropenem Infectious disease following, appreciate input 5. Metabolic encephalopathy Resolved 6. H/O cardiac arrest Patient status post PEA, resolved 7. Weakness of both lower extremities s/p LP CSF shows a markedly elevated total protein of 178 and low WBC c/w cytoalbuminologic dissociation Neurology following patient started on IVIG pre sumed GBS Continue PT/OT 8. Abnormal MRI of head due to suspected CVA Repeat MRI 07/19/20 showed patchy perive ntricular white matter disease appears improved but not resolved since 06/26/20 and may have related to u nderlying metabolic or toxic disorder and/or vasculitis. DOMINIK showed no intracardiac shunt COn't ASA/statins PT/OT 9. Acute systolic heart failure Resolved Cardiology following, appreciate input 10. Acute CVA (cerebrovascular accident) Suspected to be cardioembolic DOMINIK showed no intracardiac shunt COn't ASA/statins PT/OT 11. Acute on chronic anemia Patient status post 2 units PRBCs Hemoglobin stable now. 12. Hyperkalemia - Stable - Losartan on hold 13. Hypertensive emergency resolved, treating essential HTN Strict control of his BP given aortic dissectio n 14. Essential hypertension Continue nifedipine, hydralazine, Imdur - BP stable 15. Aortic dissection History of type B aortic dissection status post thoracic endovascular aortic repair at outside hospital Continue hydralazine, imdur and nifedipine BP is stable 16. Multifocal pneumonia s/p meropenem CXR is clear on 08/28/20 17. Acute respiratory failure with hypoxia Resolved, patient was intubated followed by tra cheostomy. -Tracheostomy has been emily aakash and patient is breathing without any difficulty. Now on room air 18. Dyspnea 19. Sacral decubitus ulcer, stage IV continue wound care and frequent turns wound care nurse performed bedside debridement and ordered wound care 20. Hypoglycemia Sugars improved Follow sugar closely 21. Abdominal pain Denies constipation. No association to food. CTA abd pending Free Text DxA P Notes Free text DxA P notes: DVT prophylaxis: sq heparin Advance Directives/Code Status: FULL CODE Anticipated discharge date: pending. CM is worki daksha on placement. at 1304 at 1305 Addendum 1: 09/05/20 180 by Marquita Betancur Pt has allergy to contrast, will need premeds fo r CTA. Ordered. Timing per radiology/pharmacy. at 1803 RPT #:[id number] END OF REPORT 2020-09-04 14:50:00-00:[address] [facility] ([facility] Neurology Progress Note REPORT#:[id number] REPORT STATUS: Signed DATE:09/04/20 TIME: 1450 PATIENT: JORGE GOINS UNIT #: [id number] ROOM/BED: [address] : 86 AGE: 35 SEX: M ATTEND: Edmar Altamirano MD ADM AUTHOR: Jessica Parson MD * ALL edits or amendments must be made on the [employer] document * Subjective Comments: cannot move his legs and they feel numb no new symptoms about to start IVIG Objective General VS: Last Documented: Result Date Time Pulse Ox 100 09/04 1129 B/P 154/92 09/04 1129 B/P Mean 112.7 09/04 1129 Temp 36.9 09/04 1129 Pulse 85 09/04 1129 Resp 22 09/04 1129 O2 Delivery Room air 09/04 1035 FiO2 21 08/06 0823 O2 Flow Rate 5 07/28 2322 PATIENT WEIGHT: Weight (lb): 175 Weight (oz): 4.28 Weight (kg): 79.500 exam laying in bed, NAD NEURO awake alert and oriented follows simple commands face symmetric EOMI power 4/5 in the upper extremities 0/5 in the lower extremities Medications Current Home Medications ALBUTEROL (PROAIR HFA 90 MCG/ACT 8.5 GM) 2 PUFF INH RTQ6H PRN PRN SOB ASPIRIN EC (ECOTRIN) 81 MG PO DAILY CARVEDILOL (COREG) 25 MG PO BID MEALS ACETAMINOPHEN/CODEINE (TYLENOL WITH CODE INE #4 300/60 MG) 1 TAB PO Q6H PRN PRN PAIN ATORVASTATIN (LIPITOR) 20 MG PO BEDTIME LOSARTAN (COZAAR) 100 MG PO DAILY NIFEdipine CC (ADALAT CC) 90 MG PO Q12HR HYDROCHLOROTHIAZIDE (HYDRODIURIL) 25 MG PO DAILY Active Meds + DC'd Last 24 Hrs Nifedipine 30 MG Q6HR PO Hydrochlorothiazide 25 MG DAILY PO Heparin Sodium (Porcine) 5,000 UNIT Q12HR SUBQ Diphenhydramine HCl 50 MG ASDIR IV (CKD) Immune Globulin 31.8 GM DAILY IV (DC) Immune Globulin 30 GM DAILY IV IV Miscellaneous Supplies 1 EACH Hydrocodone Bitart/Acetaminophen 1 TAB Q6H PRN P RN PO Zolpidem Tartrate 5 MG BEDTIME PRN PRN PO Collagenase 1 APPLIC DAILY TOPICAL Dextrose/Water 25 ML ASDIR PRN IV Glucagon 1 MG ASDIR PRN IM Sterile Water 1 ML ASDIR PRN IM Aspirin 81 MG DAILY PO Atorvastatin Calcium 40 MG DAILY PO Acetaminophen 650 MG Q4H PRN PRN PO Cyclobenzaprine HCl 10 MG BID PRN PRN PO Loperamide HCl 2 MG Q6H PRN PRN PO Simethicone 160 MG Q6H PRN PRN PO Hydralazine HCl 10 MG Q6H PRN PRN IV Isosorbide Mononitrate 40 MG BID PO (CKD) Magnesium 100 ML ASDIR PRN IV Magnesium Sulfate 50 ML ASDIR PRN IV Magnesium Sulfate 100 ML ASDIR PRN IV Nifedipine 30 MG Q6H PO (DC) Results Findings/Data: Laboratory Tests 09/04 09/04 1134 0609 Chemistry Sodium (137 - 145 mmol/L) 138 Potassium (3.4 - 5.0 mmol/L) 4.7 Chloride (98 - 107 mmol/L) 105 Carbon Dioxide (22 - 30 mmol/L) 24 BUN (9 - 20 mg/dL) 23 H Creatinine (0.7 - 1.3 mg/dL) 0.7 Glomerular Filtr Rate (>60) 166 Glucose (74 - 106 mg/dL) 91 POC Glucose (74 - 106 MG/DL) 82 Calcium (8.4 - 10.2 mg/dL) 9.0 Laboratory Tests 09/04 0609 Hematology WBC (5.0 - 12.0 x10 3/uL) 4.7 L RBC (4.70 - 6.10 x10 6/uL) 3.07 L Hgb (14.0 - 18.0 g/dL) 9.5 L Hct (37.0 - 49.0 %) 28.8 L MCV (80 - 94 fL) 94 MCH (27 - 31 pg) 30.9 MCHC (33 - 37 g/dL) 33.0 RDW (11.5 - 15.5 %) 17.0 H Plt Count (130 - 400 x10 3/uL) 223 MPV (9.4 - 16.4 fL) 9.1 L Neut % (Auto) (43 - 65 %) 65.3 H Lymph % (Auto) (20.5 - 45.5 %) 21.0 Citrus % (Auto) (5.5 - 11.7 %) 8.9 Eos % (Auto) (0.9 - 2.9 %) 4.0 H Baso % (Auto) (0.2 - 1.0 %) 0.4 Neut # (Auto) (2.2 - 4.8 x10 3/uL) 3.07 Lymph # (Auto) (1.3 - 2.9 x10 3/uL) 0.99 L Citrus # (Auto) (0.3 - 0.8 x10 3/uL) 0.42 Eos # (Auto) (0.0 - 0.2 x10 3/uL) 0.19 Baso # (Auto) (0.0 - 0.1 x10 3/uL) 0.02 Immature Gran % (0.0 - 2.0 %) 0.4 Nucleated RBC % (0 - 1.0 %) 0.0 Diagnosis, Assessment Plan Problem List/A P: 1. Metabolic encephalopathy 2. Critical illness myopathy 3. Hypertensive urgency Free Text A P: Assessment Lower extremity paraplegia in a patient with pro longed hospital stay. He has areflexia on exam and 0 out of 5 power. MRI of the spine to r/o cord infarct or other pr ocess has been attempted in [place] however given high degree of artifact the scan was aborted. Due to the degree of artifact generated by these stent ellis ts the spine was not visible and thus the study was canceled. 1. Lower extremity weakness- GBS vs critical ill ness myopathy 2. Acute encephalopathy - resolved 3. Acute ischemic strokes, suspect embolic sourc e, no PFO on DOMINIK, on asa and statin 4. s/p PEA arrest 06/11/20 5. hypertensive emergency -resolved 6. acute respiratory failure, resolved 7. type b aortic dissection Plan -Preliminary CSF studies show cytoalbuminologic dissociation -Given the history and exam and CSF findings, wi ll start IVIG x 5 days for presumed GBS -Continue PT and OT Discussed with patient We will follow Electronically Signed by Jessica Parson MD on at 0150 [facility] #:[id number] END OF REPORT 2020-09-04 09:16:00-00:00 [facility] Hospitalist Progress Note REPORT#:[id number] REPORT STATUS: Signed DATE:09/04/20 TIME: 915 PATIENT: JORGE GOINS UNIT #: [id number] ROOM/BED: [address] : 86 AGE: 35 SEX: M ATTEND: Edmar Altamirano MD ADM AUTHOR: Tessa Mccullough DO * ALL edits or amendments must be made on the [employer] document * Subjective Chief Complaint: CSF shows cytoalbuminologic dissociation HPI: Patient reports abdominal pa in that is constant not really associated with meals no nausea vomiting or diarrhea. Review of Systems Constitutional: Denies: chills, fever. Respiratory: Denies: COATES (dyspnea on exertion), SOB. Cardiovascular: Denies: chest pain, palpitations. GI: Reports: abdominal pain. Neuro: Reports: other (TONI schreiber). Objective General VS/I O: Vital Signs: Date Time Temp Pulse Resp B/P B/P Pulse O2 O2 F low FiO2 Mean Ox Delivery Rate 09/04 1129 36.9 85 22 154/92 112.7 100 09/04 1106 87 154/92 112.7 100 09/04 1036 93 154/97 116.0 100 09/04 1035 36.7 98 16 159/88 111.6 100 Room air 09/04 0823 37.2 88 17 156/87 109.9 99 Room air 09/04 0823 37.2 88 17 156/87 109.9 99 Room air 09/04 0449 36.6 90 16 118/71 86.4 100 Room air 09/04 0449 36.6 90 16 118/71 86.4 100 Room air 09/04 0228 92 156/92 113.4 09/03 2345 37.0 97 16 149/89 108.8 99 Room air 09/03 2345 37.0 97 16 149/89 108.8 99 Room air 09/03 2041 36.8 82 16 138/84 101.6 100 Room air 09/03 2041 36.8 82 16 138/84 101.6 100 Room air 09/03 1747 36.9 81 16 157/94 115.1 100 Room air 09/03 1336 36.9 82 134/80 97.8 09/03 1326 82 143/79 100.2 24 hour I O ending at 0700: 09/04 0700 09/03 1900 Intake Total 400 1120 Output Total 600 1750 Balance -200 -630 Intake, Oral 400 1120 Output, Urine 600 1750 PATIENT WEIGHT: Weight (lb): 175 Weight (oz): 4.28 Weight (kg): 79.500 Physical Exam General appearance: alert, awake, oriented Head/Eyes: atraumatic Cardiovascular: normal heart sounds, regular rat e rhythm Respiratory: clear to auscultation Abdomen: soft, TTP along lower quadrant Extremities: no clubbing Musculoskeletal: normal inspection Neuro/RADIOTELEGRAPHIST: flaccid bilat LEs Psychiatry: normal affect, normal mood Diagnosis, Assessment Plan Problem List/A P: 1. JENNIFER (acute kidney injury) Creatinine stable. nephrology signed off. 2. Sepsis Continue Zuñiga change every month, last changed on 08/21/20 s/p 10 days of meropenem 3. UTI (urinary tract infection) Urine culture positive for Pseudomonas and Ente robacter s/p 10 days meropenem 4. Bacteremia due to Enterobacter species s/p meropenem Infectious disease following, appreciate input 5. Metabolic encephalopathy Resolved 6. H/O cardiac arrest Patient status post PEA, resolved 7. Weakness of both lower extremities s/p LP CSF shows a markedly elevated total protein of 178 and low WBC c/w cytoalbuminologic dissociation Neurology following patient started on IVIG pre sumed GBS Continue PT/OT 8. Abnormal MRI of head due to suspected CVA Repeat MRI 07/19/20 showed patchy perive ntricular white matter disease appears improved but not resolved since 06/26/20 and may have related to u nderlying metabolic or toxic disorder and/or vasculitis. DOMINIK showed no intracardiac shunt COn't ASA/statins PT/OT 9. Acute systolic heart failure Resolved Cardiology following, appreciate input 10. Acute CVA (cerebrovascular accident) Suspected to be cardioembolic DOMINIK showed no intracardiac shunt COn't ASA/statins PT/OT 11. Acute on chronic anemia Patient status post 2 units PRBCs Hemoglobin stable now. 12. Hyperkalemia - Stable - Losartan on hold 13. Hypertensive emergency resolved, treating essential HTN Strict control of his BP given aortic dissectio n 14. Essential hypertension Continue nifedipine, hydralazine, Imdur - BP stable 15. Aortic dissection History of type B aortic dissection status post thoracic endovascular aortic repair at outside hospital Continue hydralazine, imdur and nifedipine BP is stable 16. Multifocal pneumonia s/p meropenem CXR is clear on 08/28/20 17. Acute respiratory failure with hypoxia Resolved, patient was intubated followed by tra cheostomy. -Tracheostomy has been emily aakash and patient is breathing without any difficulty. Now on room air 18. Dyspnea 19. Sacral decubitus ulcer, stage IV continue wound care and frequent turns wound care nurse performed bedside debridement and ordered wound care 20. Hypoglycemia Sugars improved Follow sugar closely 21. Abdominal pain Denies constipation. No association to food. Given history of aortic dissection will obtain CTA of the abdomen. Free Text DxA P Notes Free text DxA P notes: DVT prophylaxis: We will restart heparin Advance Directives/Code Status: FULL CODE Anticipated discharge date: pending. CM is ashley crooks on placement. at 1331 RPT #:[id number] END OF REPORT 2020-09-03 15:05:00-00:00 [facility] Hospitalist Progress Note REPORT#:[id number] REPORT STATUS: Signed DATE:09/03/20 TIME: 1505 PATIENT: JORGE GOINS UNIT #: [id number] ROOM/BED: [address] : 86 AGE: 35 SEX: M ATTEND: Do zo Altamirano MD ADM AUTHOR: Mahin Altamirano MD * ALL edits or amendments must be made on the [employer] document * Subjective Chief Complaint: CSF shows cytoalbuminologic dissociation Objective General VS/I O: Vital Signs: Date Time Temp Pulse Resp B/P B/P Pulse O2 O2 F low FiO2 Mean Ox Delivery Rate 09/03 1336 98.4 82 134/80 97.8 09/03 1326 82 143/79 100.2 09/03 1311 83 142/77 98.8 09/03 1256 91 142/77 98.6 09/03 1241 93 132/70 90.3 09/03 1226 90 138/75 96.1 09/03 1211 97 134/72 92.9 09/03 1156 90 127/74 91.9 09/03 1126 86 155/84 107.6 100 09/03 1111 82 145/85 104.8 100 09/03 1056 79 164/85 111.3 100 09/03 1041 80 149/84 105.6 100 09/03 1026 79 157/87 110.4 09/03 1026 99.0 78 16 157/87 110.4 100 09/03 1026 99.0 78 16 157/87 110.4 100 09/03 0759 98.6 75 18 157/84 108.5 100 Room air 09/03 0759 98.6 75 18 157/84 108.5 100 Room air 09/03 0432 98.6 87 18 116/70 85.6 100 09/02 2252 97.7 84 18 144/83 103.8 100 09/02 2023 98.1 86 20 139/86 103.8 100 09/02 1536 98.4 99 13 126/78 94.2 100 24 hour I O ending at 0700: 09/03 0700 09/02 1900 Intake Total Output Total 400 Balance -400 Output, Urine 400 PATIENT WEIGHT: Weight (lb): 175 Weight (oz): 4.28 Weight (kg): 79.500 Medications: Active Meds + DC'd Last 24 Hrs Hydrocodone Bitart/Acetaminophen 1 TAB Q6H PRN P RN PO Zolpidem Tartrate 5 MG BEDTIME PRN PRN PO Collagenase 1 APPLIC DAILY TOPICAL Dextrose/Water 25 ML ASDIR PRN IV Glucagon 1 MG ASDIR PRN IM Sterile Water 1 ML ASDIR PRN IM Aspirin 81 MG DAILY PO Atorvastatin Calcium 40 MG DAILY PO Acetaminophen 650 MG Q4H PRN PRN PO Cyclobenzaprine HCl 10 MG BID PRN PRN PO Heparin Sodium (Porcine) 5,000 UNIT Q12HR SUBQ ( DC) Loperamide HCl 2 MG Q6H PRN PRN PO Simethicone 160 MG Q6H PRN PRN PO Hydralazine HCl 10 MG Q6H PRN PRN IV Isosorbide Mononitrate 40 MG BID PO (CKD) Magnesium 100 ML ASDIR PRN IV Magnesium Sulfate 50 ML ASDIR PRN IV Magnesium Sulfate 100 ML ASDIR PRN IV Nifedipine 30 MG Q6H PO Physical Exam Head/Eyes: atraumatic, PERRLA Cardiovascular: normal heart sounds, regular rat e rhythm Respiratory: clear to auscultation Abdomen: non-tender, soft Extremities: no clubbing Musculoskeletal: normal inspection Neuro/RADIOTELEGRAPHIST: flaccid bilat LEs Psychiatry: normal affect, normal mood Diagnosis, Assessment Plan Problem List/A P: 1. JENNIFER (acute kidney injury) Creatinine stable. nephrology following. 2. Sepsis Continue Zuñiga change every month, last changed on 08/21/20 s/p 10 days of meropenem 3. UTI (urinary tract infection) Urine culture positive for Pseudomonas and Ente robacter s/p 10 days meropenem 4. Bacteremia due to Enterobacter species s/p meropenem Infectious disease following, appreciate input 5. Metabolic encephalopathy Resolved 6. H/O cardiac arrest Patient status post PEA, resolved 7. Weakness of both lower extremities concern for demyelination like AIDP/CIDP vs MS vs Guillain-Mancia syndrome s/p LP CSF shows a markedly elevated total protein of 178 and low WBC c/w cytoalbuminologic dissociation I discussed the results with the pt I spoke with Dr. bro and he will be started on IVIG ? need for repeat MRI brain and MRI C/T/L to look for plagues and demyelination Continue PT/OT 8. Abnormal MRI of head due to suspected CVA Repeat MRI 07/19/20 showed patchy perive ntricular white matter disease appears improved but not resolved since 06/26/20 and may have related to u nderlying metabolic or toxic disorder and/or vasculitis. DOMINIK showed no intracardiac shunt COn't ASA/statins PT/OT 9. Acute systolic heart failure Resolved Cardiology following, appreciate input 10. Acute CVA (cerebrovascular accident) Suspected to be cardioembolic DOMINIK showed no intracardiac shunt COn't ASA/statins PT/OT 11. Acute on chronic anemia Patient status post 2 units PRBCs Hemoglobin stable now. 12. Hyperkalemia - Stable - Losartan on hold 13. Hypertensive emergency resolved, treating essential HTN Strict control of his BP given aortic dissectio n 14. Essential hypertension Continue nifedipine, hydralazine, Imdur - BP stable 15. Aortic dissection History of type B aortic dissection status post thoracic endovascular aortic repair at outside hospital Continue hydralazine, imdur and nifedipine BP is stable 16. Multifocal pneumonia s/p meropenem CXR is clear on 08/28/20 17. Acute respiratory failure with hypoxia Resolved, patient was intubated followed by tra cheostomy. -Tracheostomy has been emily aakash and patient is breathing without any difficulty. Now on room air 18. Dyspnea mild and likely due to atelectesis He denies SSCP No hypoxia noted encouraged incentive spirometry CXR on 08/28/20 is clear 19. Sacral decubitus ulcer, stage IV continue wound care and frequent turns wound care nurse performed bedside debridement and ordered wound care 20. Hypoglycemia ? cause started hypoglycemia protocol nutrition added meal snacks to his diet Sugars improved Follow sugar closely Free Text DxA P Notes Free text DxA P notes: DVT prophylaxis: hold Heparin for pending spinal tap Advance Directives/Code Status: FULL CODE Patient's Functional Baseline prior to [place] [facility] [place] Discharge Planning to Next Site of Care: Based on clinical conditions and medical necessi ties, family support, patient wishes, and discussion with multidisciplinary ca re team members, the current recommendation for the most appropriate discharge destination at this time is: SNF or LTAC. The pt ideally needs placement at a facility for wound care and PT/ OT. Pt is aggreable with placement after I spoke with him. I will speak with case management about this on Monday. Anticipated discharge date: pending. CM is ashley crooks on placement. Quality: Gen Med Crit Care VTE Prophylaxis VTE prophylaxis initiated: resume heparin sq in the AM (re) Electronically Signed by Mahin Altamirano MD on at 1515 RPT #:[id number] END OF REPORT 2020-09-03 14:12:00-00:00 [facility] Neurology Progress Note REPORT#:[id number] REPORT STATUS: Signed DATE:09/03/20 TIME: 1412 PATIENT: JORGE GOINS UNIT #: [id number] ROOM/BED: [address] : 86 AGE: 35 SEX: M ATTEND: Edmar Altamirano MD ADM AUTHOR: Jessica Parson MD * ALL edits or amendments must be made on the [employer]/computer document * Subjective Comments: Still cannot move his legs Just got back from lumbar puncture No headache Objective General VS: Last Documented: Result Date Time Pulse Ox 100 09/04 448 B/P 118/71 09/04 448 B/P Mean 86.4 09/04 448 O2 Delivery Room air 09/04 448 Temp 36.6 09/04 448 Pulse 90 09/04 448 Resp 16 09/04 448 FiO2 21 08/06 0823 O2 Flow Rate 5 07/28 2322 PATIENT WEIGHT: Weight (lb): 175 Weight (oz): 4.28 Weight (kg): 79.500 exam laying in bed, NAD NEURO awake alert and oriented follows simple commands face symmetric EOMI power 4/5 in the upper extremities 0/5 in the lower extremities Medications Current Home Medications ALBUTEROL (PROAIR HFA 90 MCG/ACT 8.5 GM) 2 PUFF INH RTQ6H PRN PRN SOB ASPIRIN EC (ECOTRIN) 81 MG PO DAILY CARVEDILOL (COREG) 25 MG PO BID MEALS ACETAMINOPHEN/CODEINE (TYLENOL WITH CODE INE #4 300/60 MG) 1 TAB PO Q6H PRN PRN PAIN ATORVASTATIN (LIPITOR) 20 MG PO BEDTIME LOSARTAN (COZAAR) 100 MG PO DAILY NIFEdipine CC (ADALAT CC) 90 MG PO Q12HR HYDROCHLOROTHIAZIDE (HYDRODIURIL) 25 MG PO DAILY Active Meds + DC'd Last 24 Hrs Hydrocodone Bitart/Acetaminophen 1 TAB Q6H PRN P RN PO Zolpidem Tartrate 5 MG BEDTIME PRN PRN PO Collagenase 1 APPLIC DAILY TOPICAL Dextrose/Water 25 ML ASDIR PRN IV Glucagon 1 MG ASDIR PRN IM Sterile Water 1 ML ASDIR PRN IM Aspirin 81 MG DAILY PO Atorvastatin Calcium 40 MG DAILY PO Acetaminophen 650 MG Q4H PRN PRN PO Cyclobenzaprine HCl 10 MG BID PRN PRN PO Heparin Sodium (Porcine) 5,000 UNIT Q12HR SUBQ ( DC) Loperamide HCl 2 MG Q6H PRN PRN PO Simethicone 160 MG Q6H PRN PRN PO Hydralazine HCl 10 MG Q6H PRN PRN IV Isosorbide Mononitrate 40 MG BID PO (CKD) Magnesium 100 ML ASDIR PRN IV Magnesium Sulfate 50 ML ASDIR PRN IV Magnesium Sulfate 100 ML ASDIR PRN IV Nifedipine 30 MG Q6H PO Results Findings/Data: Laboratory Tests 09/04 09/03 09/03 0609 1208 1154 Chemistry Sodium (137 - 145 mmol/L) 138 137 Potassium (3.4 - 5.0 mmol/L) 4.7 4.4 Chloride (98 - 107 mmol/L) 105 104 Carbon Dioxide (22 - 30 mmol/L) 24 24 BUN (9 - 20 mg/dL) 23 H 20 Creatinine (0.7 - 1.3 mg/dL) 0.7 0.7 Glomerular Filtr Rate (>60) 166 166 Glucose (74 - 106 mg/dL) 91 96 POC Glucose (74 - 106 MG/DL) 87 Calcium (8.4 - 10.2 mg/dL) 9.0 9.1 Magnesium (1.6 - 2.3 mg/dL) 1.7 Laboratory Tests 09/04 09/03 0609 1208 Hematology WBC (5.0 - 12.0 x10 3/uL) 4.7 L RBC (4.70 - 6.10 x10 6/uL) 3.07 L Hgb (14.0 - 18.0 g/dL) 9.5 L Hct (37.0 - 49.0 %) 28.8 L MCV (80 - 94 fL) 94 MCH (27 - 31 pg) 30.9 MCHC (33 - 37 g/dL) 33.0 RDW (11.5 - 15.5 %) 17.0 H Plt Count (130 - 400 x10 3/uL) 223 225 MPV (9.4 - 16.4 fL) 9.1 L Neut % (Auto) (43 - 65 %) 65.3 H Lymph % (Auto) (20.5 - 45.5 %) 21.0 Citrus % (Auto) (5.5 - 11.7 %) 8.9 Eos % (Auto) (0.9 - 2.9 %) 4.0 H Baso % (Auto) (0.2 - 1.0 %) 0.4 Neut # (Auto) (2.2 - 4.8 x10 3/uL) 3.07 Lymph # (Auto) (1.3 - 2.9 x10 3/uL) 0.99 L Citrus # (Auto) (0.3 - 0.8 x10 3/uL) 0.42 Eos # (Auto) (0.0 - 0.2 x10 3/uL) 0.19 Baso # (Auto) (0.0 - 0.1 x10 3/uL) 0.02 Immature Gran % (0.0 - 2.0 %) 0.4 Nucleated RBC % (0 - 1.0 %) 0.0 Laboratory Tests 09/03 0911 Other Body Source CSF Volume (ML) 9.5 CSF Appearance (CLEAR) Clear CSF Color (COLORLESS) Colorless CSF WBC (0 - 9 /mm3) 3 CSF RBC (0 - 0 /mm3) 2 H CSF Cell Count Tube # #4 CSF Glucose (40 - 70 mg/dL) 37 L CSF Total Protein (12.0 - 60.0 mg/dL) 178 H Radiology Data: Recent Impressions: SPECIAL PROCEDURES - PUNCTURE LUMBAR DX 09/03 09 45 Report Impression - Status: SIGNED Entered: 09/03/2020 6968 IMPRESSION: Successful image-guided lumbar puncture. Impression By: Frederick Higgins M.D. Diagnosis, Assessment Plan Problem List/A P: 1. Hypertensive urgency 2. Metabolic encephalopathy 3. Critical illness myopathy Free Text A P: Assessment Lower extremity paraplegia in a patient with pro longed hospital stay . He has areflexia on exam and 0 out of 5 power. MRI of the spine to r/o cord infarct or other pr ocess has been attempted in [place] however given high degree of artifact the scan was aborted. Due to the degree of artifact generated by these stent ellis ts the spine was not visible and thus the study was canceled. 1. Lower extremity weakness- GBS vs critical ill ness myopathy 2. Acute encephalopathy - resolved 3. Acute ischemic strokes, suspect embolic sourc e, no PFO on DOMINIK, on asa and statin 4. s/p PEA arrest 06/11/20 5. hypertensive emergency -resolved 6. acute respiratory failure, resolved 7. type b aortic dissection Plan -Preliminary CSF studies show cytoalbuminologic dissociation -Given the history and exam and CSF find ings, will start IVIG for presumed GBS -Continue PT and OT Discussed with patient and Dr. Altamirano We will follow Electronically Signed by Jessica Parson MD on at 0838 RPT #:[id number] END OF REPORT 2020-09-03 11:06:00-00:00 [facility] Op/Inv Procedure Note - Brief REPORT#:[id number] REPORT STATUS: Signed DATE:09/03/20 TIME: 110 PATIENT: JORGE GOINS UNIT #: [id number] ROOM/BED: [address] : [birth year] AGE: 35 SEX: M ATTEND: Edmar Altamirano MD ADM AUTHOR: Tucker Chaves * ALL edits or amendments must be made on the el [employer]/computer document * Op/Inv Proc Note - Brief TEXT Brief Op/Inv Procedure Note Note details: Pre-procedure: [paraplegia] Post-procedure: [same] Procedure: Lumbar Puncture Attending: Jojo Contact Acid Plant Operator Helper: Anastacio Assistants: Ranjan Anesthetic: [X] Local; [ ] Moderate sedation; [ ] MAC sedation; [ ] General anesthesia EBL: [X] Less than 30 cc; [ ] 30-100 cc; [ ] Gre ater than 100 cc Specimens Removed: [10 ml of clear CSF, sent to lab] Open Pressure: [] cm Complications: None Fluid Findings: [ ] Bloody; [ ] Blood-tinged; [ ] Graeme; [ ] Light graeme; [ ] Cloudy; [ X] Non-cloudy Disposition: [X] Back to room; [ ] Home; [ ] ICU ; [ ] IMU; [ ] To floor Please refer to final report in Radiology PACS. Electronically Signed by Tucker Chaves on 05/16 at 1107 RPT #:[id number] END OF REPORT 2020-09-02 16:13:00-00:00 [facility] Hospitalist Progress Note REPORT#:[id number] REPORT STATUS: Signed DATE:09/02/20 TIME: 1613 PATIENT: JORGE GOINS UNIT #: [id number] ROOM/BED: [facility] : 86 AGE: 35 SEX: M ATTEND: Edmar Altamirano MD ADM AUTHOR: Mahin Altamirano MD * ALL edits or amendments must be made on the el [employer]/computer document * Subjective Chief Complaint: hypoglycemia is better Objective General VS/I O: Vital Signs: Date Time Temp Pulse Resp B/P B/P Pulse O2 O2 F low FiO2 Mean Ox Delivery Rate 09/02 1536 98.4 99 13 126/78 94.2 100 09/02 1059 107 14 133/79 97.3 97 09/02 0717 98.4 85 14 135/81 98.9 100 09/02 0423 98.1 94 16 133/74 93.7 100 Room air 09/01 2359 98.4 94 16 141/78 98.9 100 Room air 09/01 1955 98.6 86 16 137/83 100.8 100 Room air 09/01 1632 98.4 93 16 140/75 96.6 100 Room air PATIENT WEIGHT: Weight (lb): 175 Weight (oz): 4.28 Weight (kg): 79.500 Medications: Active Meds + DC'd Last 24 Hrs Hydrocodone Bitart/Acetaminophen 1 TAB Q6H PRN P RN PO Zolpidem Tartrate 5 MG BEDTIME PRN PRN PO Collagenase 1 APPLIC DAILY TOPICAL Dextrose/Water 25 ML ASDIR PRN IV Glucagon 1 MG ASDIR PRN IM Sterile Water 1 ML ASDIR PRN IM Aspirin 81 MG DAILY PO Atorvastatin Calcium 40 MG DAILY PO Acetaminophen 650 MG Q4H PRN PRN PO Cyclobenzaprine HCl 10 MG BID PRN PRN PO Heparin Sodium (Porcine) 5,000 UNIT Q12HR SUBQ Loperamide HCl 2 MG Q6H PRN PRN PO Simethicone 160 MG Q6H PRN PRN PO Hydralazine HCl 10 MG Q6H PRN PRN IV Isosorbide Mononitrate 40 MG BID PO (CKD) Magnesium 100 ML ASDIR PRN IV Magnesium Sulfate 50 ML ASDIR PRN IV Magnesium Sulfate 100 ML ASDIR PRN IV Nifedipine 30 MG Q6H PO Physical Exam General appearance: alert, awake Cardiovascular: normal heart sounds, regular rat e rhythm Respiratory: clear to auscultation Abdomen: non-tender, soft Musculoskeletal: normal inspection Neuro/RADIOTELEGRAPHIST: flaccid bilat LEs Diagnosis, Assessment Plan Problem List/A P: 1. JENNIFER (acute kidney injury) Creatinine stable. nephrology following. 2. Sepsis Continue Zuñiga change every month, last changed on 08/21/20 s/p 10 days of meropenem 3. UTI (urinary tract infection) Urine culture positive for Pseudomonas and Ente robacter s/p 10 days meropenem 4. Bacteremia due to Enterobacter species s/p meropenem Infectious disease following, appreciate input 5. Metabolic encephalopathy Resolved 6. H/O cardiac arrest Patient status post PEA, resolved 7. 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 He requested to see neurology again and now wan ts to proceed with LP neurology has ordered an LP to evaluate for dem yelination. Continue PT/OT 8. Abnormal MRI of head due to suspected CVA Repeat MRI 07/19/20 showed patchy perive ntricular white matter disease appears improved but not resolved since 06/26/20 and may have related to u nderlying metabolic or toxic disorder and/or vasculitis. DOMINIK showed no intracardiac shunt COn't ASA/statins PT/OT 9. Acute systolic heart failure Resolved Cardiology following, appreciate input 10. Acute CVA (cerebrovascular accident) Suspected to be cardioembolic DOMINIK showed no intracardiac shunt COn't ASA/statins PT/OT 11. Acute on chronic anemia Patient status post 2 units PRBCs Hemoglobin stable now. 12. Hyperkalemia - Stable - Losartan on hold 13. Hypertensive emergency resolved, treating essential HTN Strict control of his BP given aortic dissectio n 14. Essential hypertension Continue nifedipine, hydralazine, Imdur - BP stable 15. Aortic dissection History of type B aortic dissection status post thoracic endovascular aortic repair at outside hospital Continue hydralazine, imdur and nifedipine BP is stable 16. Multifocal pneumonia s/p meropenem CXR is clear on 08/28/20 17. Acute respiratory failure with hypoxia Resolved, patient was intubated followed by tra cheostomy. -Tracheostomy has been emily aakash and patient is breathing without any difficulty. Now on room air 18. Dyspnea mild and likely due to atelectesis He denies SSCP No hypoxia noted encouraged incentive spirometry CXR on 08/28/20 is clear 19. Sacral decubitus ulcer, stage IV continue wound care and frequent turns wound care nurse performed bedside debridement and ordered wound care 20. Hypoglycemia ? cause started hypoglycemia protocol nutrition added meal snacks to his diet Sugars improved Follow sugar closely Free Text DxA P Notes Free text DxA P notes: DVT prophylaxis: hold Heparin for pending spinal tap Advance Directives/Code Status: FULL CODE Patient's Functional Baseline prior to admit: Us es wheelchair Discharge Planning to Next Site of Care: Based on clinical conditions and medical necessi ties, family support, patient wishes, and discussion with multidisciplinary ca re team members, the current recommendation for the most appropriate discharge destination at this time is: SNF or LTAC. The pt ideally needs placement at a facility for wound care and PT/ OT. Pt is aggreable with placement after I spoke with him. I will speak with case management about this on Monday. Anticipated discharge date: pending. CM is ashley crooks on placement. Electronically Signed by Mahin Altamirano MD on at 1621 RPT #:[id number] END OF REPORT 2020-09-01 16:10:00-00:[address] Neurology Progress Note REPORT#:[id number] REPORT STATUS: Signed DATE:09/01/20 TIME: 1610 PATIENT: JORGE GOINS UNIT #: [id number] ROOM/BED: [address] : 86 AGE: 35 SEX: M ATTEND: Edmar Altamirano MD ADM AUTHOR: Jessica Parson MD * ALL edits or amendments must be made on the [employer]/computer document * Subjective Comments: Asked by primary team to evaluate patient for lo wer extremity weakness as patient has questions We previously were on the case but had signed of f She states that he has persi stent lower extremity weakness cannot move his legs and does have numbness in his legs Objective General VS: Last Documented: Result Date Time Pulse Ox 98 09/01 1139 B/P 143/92 09/01 1139 B/P Mean 109.0 09/01 1139 O2 Delivery Room air 09/01 1139 Temp 36.8 09/01 1139 Pulse 97 09/01 1139 Resp 16 09/01 1139 FiO2 21 08/06 0823 O2 Flow Rate 5 07/28 2322 PATIENT WEIGHT: Weight (lb): 175 Weight (oz): 4.28 Weight (kg): 79.500 exam laying in bed, NAD NEURO awake alert and oriented follows simple commands face symmetric EOMI power 4/5 in the upper extremities 0/5 in the lower extremities with absent reflexe s and decreased sensation throughout the lower extremities Medications Current Home Medications ALBUTEROL (PROAIR HFA 90 MCG/ACT 8.5 GM) 2 PUFF INH RTQ6H PRN PRN SOB ASPIRIN EC (ECOTRIN) 81 MG PO DAILY CARVEDILOL (COREG) 25 MG PO BID MEALS ACETAMINOPHEN/CODEINE (TYLENOL WITH CODE INE #4 300/60 MG) 1 TAB PO Q6H PRN PRN PAIN ATORVASTATIN (LIPITOR) 20 MG PO BEDTIME LOSARTAN (COZAAR) 100 MG PO DAILY NIFEdipine CC (ADALAT CC) 90 MG PO Q12HR HYDROCHLOROTHIAZIDE (HYDRODIURIL) 25 MG PO DAILY Active Meds + DC'd Last 24 Hrs Hydrocodone Bitart/Acetaminophen 1 TAB Q6H PRN P RN PO Zolpidem Tartrate 5 MG BEDTIME PRN PRN PO Collagenase 1 APPLIC DAILY TOPICAL Dextrose/Water 25 ML ASDIR PRN IV Glucagon 1 MG ASDIR PRN IM Sterile Water 1 ML ASDIR PRN IM Aspirin 81 MG DAILY PO Atorvastatin Calcium 40 MG DAILY PO Acetaminophen 650 MG Q4H PRN PRN PO Cyclobenzaprine HCl 10 MG BID PRN PRN PO Heparin Sodium (Porcine) 5,000 UNIT Q12HR SUBQ Loperamide HCl 2 MG Q6H PRN PRN PO Simethicone 160 MG Q6H PRN PRN PO Hydralazine HCl 10 MG Q6H PRN PRN IV Isosorbide Mononitrate 40 MG BID PO (CKD) Magnesium 100 ML ASDIR PRN IV Magnesium Sulfate 50 ML ASDIR PRN IV Magnesium Sulfate 100 ML ASDIR PRN IV Nifedipine 30 MG Q6H PO Results Findings/Data: Laboratory Tests 09/01 09/01 08/31 08/31 1138 0420 1919 1644 Chemistry POC Glucose (74 - 106 MG/DL) 55 L 77 92 87 Diagnosis, Assessment Plan Problem List/A P: 1. Hypertensive urgency 2. Metabolic encephalopathy 3. Critical illness myopathy Free Text A P: Assessment Lower extremity paraplegia in a patient with pro longed hospital stay. He has areflexia on exam and 0 out of 5 power. 1. Acute encephalopathy - resolved 2. Lower extremity weakness- critical illness my opathy vs GBS 3. Acute ischemic strokes, suspect embolic sourc e, + PFO, b/l lower extremity dopplers negative 4. s/p PEA arrest 06/11/20 5. hypertensive emergency -resolved 6. acute respiratory failure, resolved 7. type b aortic dissection Plan -Patient previously declined lumbar punc ture but is now willing to proceed for evaluation of lower extremity weakness -We will order IR guided lumbar puncture to eval uate for cytoalbuminologic dissociation -Continue PT and OT We will follow Electronically Signed by Jessica Parson MD on at 1614 RPT #:[id number] END OF REPORT 2020-09-01 12:22:00-00:00 [facility] Hospitalist Progress Note REPORT#:[id number] REPORT STATUS: Signed DATE:09/01/20 TIME: 1222 PATIENT: JORGE GOINS UNIT #: [id number] ROOM/BED: [address] : 87 AGE: 35 SEX: M ATTEND: Edmar Altamirano MD ADM AUTHOR: Mahin Altamirano MD * ALL edits or amendments must be made on the [employer]/computer document * Subjective Chief Complaint: pt had a recurrent hypoglycemic event again he states he has been eating Objective Physical Exam Head/Eyes: atraumatic, PERRLA Cardiovascular: normal heart sounds, regular rat e rhythm Respiratory: decreased breath sounds Abdomen: non-tender, normal bowel sounds, soft Extremities: no clubbing 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, bilateral LE weakness Psychiatry: normal affect, normal mood Diagnosis, Assessment Plan Problem List/A P: 1. JENNIFER (acute kidney injury) Creatinine stable. nephrology following. 2. Sepsis Continue Zuñiga change every month, last changed on 08/21/20 s/p 10 days of meropenem 3. UTI (urinary tract infection) Urine culture positive for Pseudomonas and Ente robacter s/p 10 days meropenem 4. Bacteremia due to Enterobacter species s/p meropenem Infectious disease following, appreciate input 5. Metabolic encephalopathy Resolved 6. H/O cardiac arrest Patient status post PEA, resolved 7. 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 Discussed with patient regdiego de santiagoing LP again, but states he still does not want at this time. Continue PT/OT 8. Abnormal MRI of head due to suspected CVA Repeat MRI 07/19/20 showed patchy perive ntricular white matter disease appears improved but not resolved since 06/26/20 and may have related to u nderlying metabolic or toxic disorder and/or vasculitis. DOMINIK showed no intracardiac shunt COn't ASA/statins PT/OT 9. Acute systolic heart failure Resolved Cardiology following, appreciate input 10. Acute CVA (cerebrovascular accident) Suspected to be cardioembolic DOMINIK showed no intracardiac shunt COn't ASA/statins PT/OT 11. Acute on chronic anemia Patient status post 2 units PRBCs Hemoglobin stable now. 12. Hyperkalemia - Stable - Losartan on hold 13. Hypertensive emergency resolved, treating essential HTN Strict control of his BP given aortic dissectio n 14. Essential hypertension Continue nifedipine, hydralazine, Imdur - BP stable 15. Aortic dissection History of type B aortic dissection status post thoracic endovascular aortic repair at outside hospital Continue hydralazine, imdur and nifedipine BP is stable 16. Multifocal pneumonia s/p meropenem CXR is clear on 08/28/20 17. Acute respiratory failure with hypoxia Resolved, patient was intubated followed by tra cheostomy. -Tracheostomy has been emily aakash and patient is breathing without any difficulty. Now on room air 18. Dyspnea mild and likely due to atelectesis He denies SSCP No hypoxia noted encouraged incentive spirometry CXR on 08/28/20 is clear 19. Sacral decubitus ulcer, stage IV continue wound care and frequent turns wound care nurse performed bedside debridement and ordered wound care 20. Hypoglycemia ? cause he reports that he has been eating started hypoglycemia protocol consult nutrition for supplements Follow sugar closely Free Text DxA P Notes Free text DxA P notes: DVT prophylaxis: Heparin Advance Directives/Code Status: FULL CODE Patient's Functional Baseline prior to admit: [facility] [place] Discharge Planning to Next Site of Care: Based on clinical conditions and medical necessi ties, family support, patient wishes, and discussion with multidisciplinary ca re team members, the current recommendation for the most appropriate discharge destination at this time is: SNF or LTAC. The pt ideally needs placement at a facility for wound care and PT/ OT. Pt is aggreable with placement after I spoke with him. I will speak with case management about this on Monday. Anticipated discharge date: 08/31/20 or 09/01/20 Electronically Signed by Mahin Altamirano MD on at 1238 RPT #:[id number] END OF REPORT 2020-09-01 12:22:00-00:00 [facility] Hospitalist Progress Note REPORT#:[id number] REPORT STATUS: Signed DATE:09/01/20 TIME: 1222 PATIENT: JORGE GOINS UNIT #: [id number] ROOM/BED: [address] : 86 AGE: 35 SEX: M ATTEND: Edmar Altamirano MD ADM AUTHOR: Mahin Altamirano MD * ALL edits or amendments must be made on the [employer]/computer document * See Addendum Subjective Chief Complaint: pt had a recurrent hypoglycemic event again he states he has been eating Objective Physical Exam Head/Eyes: atraumatic, PERRLA Cardiovascular: normal heart sounds, regular rat e rhythm Respiratory: decreased breath sounds Abdomen: non-tender, normal bowel sounds, soft Extremities: no clubbing 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, bilateral LE weakness Psychiatry: normal affect, normal mood Diagnosis, Assessment Plan Problem List/A P: 1. JENNIFER (acute kidney injury) Creatinine stable. nephrology following. 2. Sepsis Continue Zuñiga change every month, last changed on 08/21/20 s/p 10 days of meropenem 3. UTI (urinary tract infection) Urine culture positive for Pseudomonas and Ente robacter s/p 10 days meropenem 4. Bacteremia due to Enterobacter species s/p meropenem Infectious disease following, appreciate input 5. Metabolic encephalopathy Resolved 6. H/O cardiac arrest Patient status post PEA, resolved 7. 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 Discussed with patient rega rding LP again, but states he still does not want at this time. Continue PT/OT 8. Abnormal MRI of head due to suspected CVA Repeat MRI 07/19/20 showed patchy perive ntricular white matter disease appears improved but not resolved since 06/26/20 and may have related to u nderlying metabolic or toxic disorder and/or vasculitis. DOMINIK showed no intracardiac shunt COn't ASA/statins PT/OT 9. Acute systolic heart failure Resolved Cardiology following, appreciate input 10. Acute CVA (cerebrovascular accident) Suspected to be cardioembolic DOMINIK showed no intracardiac shunt COn't ASA/statins PT/OT 11. Acute on chronic anemia Patient status post 2 units PRBCs Hemoglobin stable now. 12. Hyperkalemia - Stable - Losartan on hold 13. Hypertensive emergency resolved, treating essential HTN Strict control of his BP given aortic dissectio n 14. Essential hypertension Continue nifedipine, hydralazine, Imdur - BP stable 15. Aortic dissection History of type B aortic dissection status post thoracic endovascular aortic repair at outside hospital Continue hydralazine, imdur and nifedipine BP is stable 16. Multifocal pneumonia s/p meropenem CXR is clear on 08/28/20 17. Acute respiratory failure with hypoxia Resolved, patient was intubated followed by tra cheostomy. -Tracheostomy has been emily aakash and patient is breathing without any difficulty. Now on room air 18. Dyspnea mild and likely due to atelectesis He denies SSCP No hypoxia noted encouraged incentive spirometry CXR on 08/28/20 is clear 19. Sacral decubitus ulcer, stage IV continue wound care and frequent turns wound care nurse performed bedside debridement and ordered wound care 20. Hypoglycemia ? cause he reports that he has been eating started hypoglycemia protocol consult nutrition for supplements Follow sugar closely Free Text DxA P Notes Free text DxA P notes: DVT prophylaxis: Heparin Advance Directives/Code Status: FULL CODE Patient's Functional Baseline prior to admit: Us es wheelchair Discharge Planning to Next Site of Care: Based on clinical conditions and medical necessi ties, family support, patient wishes, and discussion with multidisciplinary ca re team members, the current recommendation for the most appropriate discharge destination at this time is: SNF or LTAC. The pt ideally needs placement at a facility for wound care and PT/ OT. Pt is aggreable with placement after I spoke with him. I will speak with case management about this on Monday. Anticipated discharge date: 08/31/20 or 09/01/20 Electronically Signed by Mahin Altamirano MD on at 1238 Addendum 1: 09/01/20 1239 by Mahin Altamirano MD I spoke with CM and we are still awaiting placem ent Electronically Signed by Mahin Altamirano MD on at 1239 RPT #:[id number] END OF REPORT 2020-08-31 13:55:00-00:00 [facility] Hospitalist Progress Note REPORT#:[id number] REPORT STATUS: Signed DATE:08/31/20 TIME: 1355 PATIENT: JORGE GOINS UNIT #: [id number] ROOM/BED: [address] : 86 AGE: 35 SEX: M ATTEND: Edmar Altamirano MD ADM AUTHOR: Mahin Altamirano MD * ALL edits or amendments must be made on the [employer]/computer document * Subjective Chief Complaint: pt had a hypoglycemic event earlier he states he has been eating Objective General VS/I O: Vital Signs: Date Time Temp Pulse Resp B/P B/P Pulse O2 O2 F low FiO2 Mean Ox Delivery Rate 08/31 1251 100 Room air 08/31 1130 104 14 128/83 98.2 96 08/31 0727 82 14 150/90 109.9 100 08/31 0415 98.2 83 16 128/72 90.9 100 Room air 08/30 2353 98.4 86 16 136/79 97.9 100 Room air 08/30 2004 98.8 81 16 144/81 102.1 100 Room air 08/30 1637 98.2 88 18 132/75 93.8 100 Room air PATIENT WEIGHT: Weight (lb): 176 Weight (oz): 9.44 Weight (kg): 80.100 Medications: Active Meds + DC'd Last 24 Hrs Dextrose/Water 25 ML ASDIR PRN IV Glucagon 1 MG ASDIR PRN IM Sterile Water 1 ML ASDIR PRN IM Zolpidem Tartrate 5 MG ONCE ONE PO (DC) Hydrocodone Bitart/Acetaminophen 1 TAB Q6H PRN P RN PO (DC) Aspirin 81 MG DAILY PO Atorvastatin Calcium 40 MG DAILY PO Acetaminophen 650 MG Q4H PRN PRN PO Cyclobenzaprine HCl 10 MG BID PRN PRN PO Heparin Sodium (Porcine) 5,000 UNIT Q12HR SUBQ Loperamide HCl 2 MG Q6H PRN PRN PO Zolpidem Tartrate 10 MG BEDTIME PRN PRN PO (DC) Simethicone 160 MG Q6H PRN PRN PO Hydralazine HCl 10 MG Q6H PRN PRN IV Isosorbide Mononitrate 40 MG BID PO (CKD) Magnesium 100 ML ASDIR PRN IV Magnesium Sulfate 50 ML ASDIR PRN IV Magnesium Sulfate 100 ML ASDIR PRN IV Nifedipine 30 MG Q6H PO Physical Exam Head/Eyes: atraumatic, PERRLA Cardiovascular: normal heart sounds, regular rat e rhythm Respiratory: decreased breath sounds Abdomen: non-tender, normal bowel sounds, soft Extremities: no clubbing 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, bilateral LE weakness Psychiatry: normal affect, normal mood Diagnosis, Assessment Plan Problem List/A P: 1. JENNIFER (acute kidney injury) Creatinine stable. nephrology following. 2. Sepsis Continue Zuñiga change every month, last changed on 08/21/20 s/p 10 days of meropenem 3. UTI (urinary tract infection) Urine culture positive for Pseudomonas and Ente robacter s/p 10 days meropenem 4. Bacteremia due to Enterobacter species s/p meropenem Infectious disease following, appreciate input 5. Metabolic encephalopathy Resolved 6. H/O cardiac arrest Patient status post PEA, resolved 7. 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 Discussed with patient rajni de santiagoing LP again, but states he still does not want at this time. Continue PT/OT 8. Abnormal MRI of head due to suspected CVA Repeat MRI 07/19/20 showed patchy perive ntricular white matter disease appears improved but not resolved since 06/26/20 and may have related to u nderlying metabolic or toxic disorder and/or vasculitis. DOMINIK showed no intracardiac shunt COn't ASA/statins PT/OT 9. Acute systolic heart failure Resolved Cardiology following, appreciate input 10. Acute CVA (cerebrovascular accident) Suspected to be cardioembolic DOMINIK showed no intracardiac shunt COn't ASA/statins PT/OT 11. Acute on chronic anemia Patient status post 2 units PRBCs Hemoglobin stable now. 12. Hyperkalemia - Stable - Losartan on hold 13. Hypertensive emergency resolved, treating essential HTN Strict control of his BP given aortic dissectio n 14. Essential hypertension Continue nifedipine, hydralazine, Imdur - BP stable 15. Aortic dissection History of type B aortic dissection status post thoracic endovascular aortic repair at outside hospital Continue hydralazine, imdur and nifedipine BP is stable 16. Multifocal pneumonia s/p meropenem CXR is clear on 08/28/20 17. Acute respiratory failure with hypoxia Resolved, patient was intubated followed by tra cheostomy. -Tracheostomy has been emily aakash and patient is breathing without any difficulty. Now on room air 18. Dyspnea mild and likely due to atelectesis He denies SSCP No hypoxia noted encouraged incentive spirometry CXR on 08/28/20 is clear 19. Sacral decubitus ulcer, stage IV I reviewed the pictures with his nurse continue wound care and frequent turns I spoke with wound care nurse and she will f/u on this today ? need for wound VAC 20. Hypoglycemia ? cause he reprts that he has been eating start hypoglycemia protocol Follow sugar closely Free Text DxA P Notes Free text DxA P notes: DVT prophylaxis: Heparin Advance Directives/Code Status: FULL CODE Patient's Functional Baseline prior to admit: Us es wheelchair Discharge Planning to Next Site of Care: Based on clinical conditions and medical necessi ties, family support, patient wishes, and discussion with multidisciplinary ca re team members, the current recommendation for the most appropriate discharge destination at this time is: SNF or LTAC. The pt ideally needs placement at a facility for wound care and PT/ OT. Pt is aggreable with placement after I spoke with him. I will speak with case management about this on Monday. Anticipated discharge date: 08/31/20 or 09/01/20 Quality: Gen Med Crit Care Current Medications Current medication review: I attest that the foregoing medication list in t he medical record is true, accurate, and complete to the best of my knowled ge. VTE Prophylaxis VTE prophylaxis initiated: heparin sq Electronically Signed by Mahin Altamirano MD on at 1359 RPT #:[id number] END OF REPORT 2020-08-30 15:01:00-00:00 [facility] Hospitalist Progress Note REPORT#:[id number] REPORT STATUS: Signed DATE:08/30/20 TIME: 1501 PATIENT: JORGE GOINS UNIT #: [id number] ROOM/BED: [address] : 86 AGE: 35 SEX: M ATTEND: Edmar Altamirano MD ADM AUTHOR: Mahin Altamirano MD * ALL edits or amendments must be made on the rimidi/computer document * Subjective Chief Complaint: no new issues Objective General VS/I O: Vital Signs: Date Time Temp Pulse Resp B/P B/P Pulse O2 O2 F low FiO2 Mean Ox Delivery Rate 08/30 1201 98.6 88 20 150/82 105.0 100 Room air 08/30 0809 98.2 83 20 121/72 87.9 100 Room air / 0555 97.7 72 19 142/80 101.0 100 Room air / 0555 97.7 72 19 142/80 101.0 100 Room ai r 08/29 2353 98.4 85 19 150/81 104.3 100 Room air / 2353 98.4 85 19 150/81 104.3 100 Room air /2020 98.1 88 16 121/68 85.4 100 08/29 1528 98.4 80 16 156/86 109.7 100 Room air / 1528 98.4 80 16 156/86 109.7 100 Room air 24 hour I O ending at 0700: 08/30 0700 08/29 1900 Intake Total 240 Output Total Balance 240 Intake, Oral 240 PATIENT WEIGHT: Weight (lb): 176 Weight (oz): 9.44 Weight (kg): 80.100 Medications: Active Meds + DC'd Last 24 Hrs Hydrocodone Bitart/Acetaminophen 1 TAB Q6H PRN P RN PO Aspirin 81 MG DAILY PO Atorvastatin Calcium 40 MG DAILY PO Acetaminophen 650 MG Q4H PRN PRN PO Cyclobenzaprine HCl 10 MG BID PRN PRN PO Heparin Sodium (Porcine) 5,000 UNIT Q12HR SUBQ Loperamide HCl 2 MG Q6H PRN PRN PO Zolpidem Tartrate 10 MG BEDTIME PRN PRN PO Simethicone 160 MG Q6H PRN PRN PO Hydralazine HCl 10 MG Q6H PRN PRN IV Isosorbide Mononitrate 40 MG BID PO (CKD) Magnesium 100 ML ASDIR PRN IV Magnesium Sulfate 50 ML ASDIR PRN IV Magnesium Sulfate 100 ML ASDIR PRN IV Nifedipine 30 MG Q6H PO Physical Exam Head/Eyes: atraumatic, PERRLA Cardiovascular: normal heart sounds, regular rat e rhythm Respiratory: decreased breath sounds Abdomen: non-tender, normal bowel sounds, soft Extremities: no clubbing 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, bilateral LE weakness Psychiatry: normal affect, normal mood Diagnosis, Assessment Plan Problem List/A P: 1. JENNIFER (acute kidney injury) Creatinine stable. nephrology following. 2. Sepsis Continue Zuñiga change every month, last changed on 08/21/20 s/p 10 days of meropenem 3. UTI (urinary tract infection) Urine culture positive for Pseudomonas and Ente robacter s/p 10 days meropenem 4. Bacteremia due to Enterobacter species s/p meropenem Infectious disease following, appreciate input 5. Metabolic encephalopathy Resolved 6. H/O cardiac arrest Patient status post PEA, resolved 7. 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 Discussed with patient rega jonnathaning LP again, but states he still does not want at this time. Continue PT/OT 8. Abnormal MRI of head due to suspected CVA Repeat MRI 07/19/20 showed patchy perive ntricular white matter disease appears improved but not resolved since 06/26/20 and may have related to u nderlying metabolic or toxic disorder and/or vasculitis. DOMINIK showed no intracardiac shunt COn't ASA/statins PT/OT 9. Acute systolic heart failure Resolved Cardiology following, appreciate input 10. Acute CVA (cerebrovascular accident) Suspected to be cardioembolic DOMINIK showed no intracardiac shunt COn't ASA/statins PT/OT 11. Acute on chronic anemia Patient status post 2 units PRBCs Hemoglobin stable now. 12. Hyperkalemia - Stable - Losartan on hold 13. Hypertensive emergency resolved, treating essential HTN Strict control of his BP given aortic dissectio n 14. Essential hypertension Continue nifedipine, hydralazine, Imdur - BP stable 15. Aortic dissection History of type B aortic dissection status post thoracic endovascular aortic repair at outside hospital Continue hydralazine, imdur and nifedipine BP is stable 16. Multifocal pneumonia s/p meropenem CXR is clear on 08/28/20 17. Acute respiratory failure with hypoxia Resolved, patient was intubated followed by tra cheostomy. -Tracheostomy has been emily aakash and patient is breathing without any difficulty. Now on room air 18. Dyspnea mild and likely due to atelectesis He denies SSCP No hypoxia noted encouraged incentive spirometry CXR on 08/28/20 is clear 19. Sacral decubitus ulcer, stage IV I reviewed the pictures with his nurse continue wound care and frequent turns I will ask for wound care nurse to follow up on this on Monday ? need for wound VAC Free Text DxA P Notes Free text DxA P notes: DVT prophylaxis: Heparin Advance Directives/Code Status: FULL CODE Patient's Functional Baseline prior to admit: Us es wheelchair Discharge Planning to Next Site of Care: Based on clinical conditions and medical necessi ties, family support, patient wishes, and discussion with multidisciplinary ca re team members, the current recommendation for the most appropriate discharge destination at this time is: SNF or LTAC. The pt ideally needs placement at a facility for wound care and PT/ OT. Pt is aggreable with placement after I spoke with him. I will speak with case management about this on Monday. Anticipated discharge date: 08/31/20 or 09/01/20 Electronically Signed by Mahin Altamirano MD on at 1503 RPT #:[id number] END OF REPORT 2020-08-29 15:22:00-00:[address] [facility] REPORT#:[id number] REPORT STATUS: Signed DATE:08/29/20 TIME: 1521 PATIENT: JORGE GOINS UNIT #: [id number] ROOM/BED: [address] : 86 AGE: 35 SEX: M ATTEND: Edmar Altamirano MD ADM AUTHOR: Mahin Altamirano MD * ALL edits or amendments must be made on the [employer] document * Subjective Chief Complaint: breathing is better He has been using the incentive spirometer Objective General VS/I O: Vital Signs: Date Time Temp Pulse Resp B/P B/P Pulse O2 O2 F low FiO2 Mean Ox Delivery Rate 08/29 1528 98.4 80 16 156/86 109.7 100 Room air 03/06 1055 98.2 90 16 127/81 96.3 100 Room air 03/06 0809 98.2 80 20 136/75 95.6 99 Room air 03/06 0407 97.5 84 18 133/74 93.6 100 03/05 2333 98.1 77 17 147/83 104.3 100 03/05 2053 98.2 80 20 143/76 98.2 100 03/05 1556 99 108/66 79.8 100 03/05 1552 98 101/63 76.0 100 03/05 1546 96 125/80 94.9 100 24 hour I O ending at 0700: 08/29 0700 03/05 1900 Intake Total 500 300 Output Total 1300 Balance -800 300 Intake, Oral 500 300 Number 1 Bowel Movements Output, Urine 1300 PATIENT WEIGHT: Weight (lb): 176 Weight (oz): 9.44 Weight (kg): 80.100 Medications: Active Meds + DC'd Last 24 Hrs Hydrocodone Bitart/Acetaminophen 1 TAB Q6H PRN P RN PO Aspirin 81 MG DAILY PO Atorvastatin Calcium 40 MG DAILY PO Acetaminophen 650 MG Q4H PRN PRN PO Cyclobenzaprine HCl 10 MG BID PRN PRN PO Heparin Sodium (Porcine) 5,000 UNIT Q12HR SUBQ Loperamide HCl 2 MG Q6H PRN PRN PO Zolpidem Tartrate 10 MG BEDTIME PRN PRN PO Simethicone 160 MG Q6H PRN PRN PO Hydralazine HCl 10 MG Q6H PRN PRN IV Isosorbide Mononitrate 40 MG BID PO (CKD) Magnesium 100 ML ASDIR PRN IV Magnesium Sulfate 50 ML ASDIR PRN IV Magnesium Sulfate 100 ML ASDIR PRN IV Nifedipine 30 MG Q6H PO Physical Exam Head/Eyes: atraumatic, PERRLA Cardiovascular: normal heart sounds, regular rat e rhythm Respiratory: decreased breath sounds Abdomen: non-tender, normal bowel sounds, soft Extremities: no clubbing 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, bilateral LE weakness Psychiatry: normal affect, normal mood Treatment Prophylaxis Treatment Prophylaxis Zuñiga status: Indicated given stage 4 de cubitus wound. Last changed on 08/21/20 Diagnosis, Assessment Plan Problem List/A P: 1. JENNIFER (acute kidney injury) Creatinine stable. nephrology following. 2. Sepsis Continue Zuñiga change every month, last changed on 08/21/20 s/p 10 days of meropenem 3. UTI (urinary tract infection) Urine culture positive for Pseudomonas and Ente robacter s/p 10 days meropenem 4. Bacteremia due to Enterobacter species s/p meropenem Infectious disease following, appreciate input 5. Metabolic encephalopathy Resolved 6. H/O cardiac arrest Patient status post PEA, resolved 7. 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 Discussed with patient rega rding LP again, but states he still does not want at this time. Continue PT/OT 8. Abnormal MRI of head due to suspected CVA Repeat MRI 07/19/20 showed patchy perive ntricular white matter disease appears improved but not resolved since 06/26/20 and may have related to u nderlying metabolic or toxic disorder and/or vasculitis. DOMINIK showed no intracardiac shunt COn't ASA/statins PT/OT 9. Acute systolic heart failure Resolved Cardiology following, appreciate input 10. Acute CVA (cerebrovascular accident) Suspected to be cardioembolic DOMINIK showed no intracardiac shunt COn't ASA/statins PT/OT 11. Acute on chronic anemia Patient status post 2 units PRBCs Hemoglobin stable now. 12. Hyperkalemia - Stable - Losartan on hold 13. Hypertensive emergency resolved, treating essential HTN Strict control of his BP given aortic dissectio n 14. Essential hypertension Continue nifedipine, hydralazine, Imdur - BP stable 15. Aortic dissection History of type B aortic dissection status post thoracic endovascular aortic repair at outside hospital Continue hydralazine, imdur and nifedipine BP is stable 16. Multifocal pneumonia s/p meropenem CXR is clear on 08/28/20 17. Acute respiratory failure with hypoxia Resolved, patient was intubated followed by tra cheostomy. -Tracheostomy has been emily aakash and patient is breathing without any difficulty. Now on room air 18. Dyspnea mild and likely due to atelectesis He denies SSCP No hypoxia noted encouraged incentive spirometry CXR on 08/28/20 is clear 19. Sacral decubitus ulcer, stage IV I reviewed the pictures with his nurse continue wound care and frequent turns I will ask for wound care nurse to follow up on this on Monday ? need for wound VAC Free Text DxA P Notes Free text DxA P notes: DVT prophylaxis: Heparin Advance Directives/Code Status: FULL CODE Patient's Functional Baseline prior to admit: Us es wheelchair Discharge Planning to Next Site of Care: Based on clinical conditions and medical necessi ties, family support, patient wishes, and discussion with multidisciplinary ca re team members, the current recommendation for the most appropriate discharge destination at this time is: SNF or LTAC. The pt ideally needs placement at a facility for wound care and PT/ OT. Pt is aggreable with placement after I spoke with him. I will speak with case management about this on Monday. Anticipated discharge date: 08/31/20 or 09/01/20 Quality: Gen Med Crit Care Current Medications Current medication review: I attest that the foregoing medication list in t medical record is true, accurate, and complete to the best of my knowled ge. Electronically Signed by Mahin Altamirano MD on at 1544 RPT #:[id number] END OF REPORT 2020-08-28 09:56:00-00:00 [facility] Hospitalist Progress Note REPORT#:[id number] REPORT STATUS: Signed DATE:08/28/20 TIME: 955 PATIENT: JORGE GOINS UNIT #: [id number] ROOM/BED: [address] : [birth year] AGE: 35 SEX: M ATTEND: Edmar Altamirano MD ADM AUTHOR: Mahin Altamirano MD * ALL edits or amendments must be made on the [employer]/computer document * Subjective Chief Complaint: Complains of mild cough and a restriction in karthik gs when breathing. No SSCP or back pain. Objective General VS/I O: Vital Signs: Date Time Temp Pulse Resp B/P B/P Pulse O2 O2 F low FiO2 Mean Ox Delivery Rate 08/28 0801 98.4 84 20 126/68 87.4 100 Room air 08/28 0421 98.6 84 16 132/74 93.4 100 Room air 08/28 0026 97.9 81 16 152/93 112.2 100 Room air 08/27 2136 98.4 92 18 171/98 122.6 100 Room air 08/27 1638 98.4 84 16 128/82 97.4 100 Room air 08/27 1131 98.6 86 16 143/83 103.2 100 Room air 24 hour I O ending at 0700: 08/28 0700 08/27 1900 Intake Total 590 Output Total 1425 Balance -835 Intake, Oral 590 Output, Urine 1425 PATIENT WEIGHT: Weight (lb): 176 Weight (oz): 9.44 Weight (kg): 80.100 Medications: Active Meds + DC'd Last 24 Hrs Hydrocodone Bitart/Acetaminophen 1 TAB Q6H PRN P RN PO Aspirin 81 MG DAILY PO Atorvastatin Calcium 40 MG DAILY PO Acetaminophen 650 MG Q4H PRN PRN PO Cyclobenzaprine HCl 10 MG BID PRN PRN PO Heparin Sodium (Porcine) 5,000 UNIT Q12HR SUBQ Loperamide HCl 2 MG Q6H PRN PRN PO Zolpidem Tartrate 10 MG BEDTIME PRN PRN PO Simethicone 160 MG Q6H PRN PRN PO Hydralazine HCl 10 MG Q6H PRN PRN IV Isosorbide Mononitrate 40 MG BID PO (CKD) Magnesium 100 ML ASDIR PRN IV Magnesium Sulfate 50 ML ASDIR PRN IV Magnesium Sulfate 100 ML ASDIR PRN IV Nifedipine 30 MG Q6H PO Collagenase 1 APPLIC DAILY TOPICAL (DC) Physical Exam Head/Eyes: atraumatic, PERRLA Cardiovascular: normal heart sounds, regular rat e rhythm Respiratory: decreased breath sounds Abdomen: non-tender, normal bowel sounds, soft Extremities: no clubbing 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, bilateral LE weakness Psychiatry: normal affect, normal mood Results Findings/Data: Laboratory Tests 08/27 1636 Chemistry POC Glucose (74 - 106 MG/DL) 85 Diagnosis, Assessment Plan Problem List/A P: 1. JENNIFER (acute kidney injury) Creatinine stable. nephrology following. 2. Sepsis Continue Zuñiga change every month s/p 10 days of meropenem 3. UTI (urinary tract infection) Urine culture positive for Pseudomonas and Ente robacter s/p 10 days meropenem 4. Bacteremia due to Enterobacter species Continue meropenem Infectious disease following, appreciate input 5. Metabolic encephalopathy Resolved 6. H/O cardiac arrest Patient status post PEA, resolved 7. 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 Discussed with patient rega rding LP again, but states he still does not want at this time. Continue PT/OT 8. Abnormal MRI of head Could be related to CVA Repeat MRI 07/19/20 showed patchy perive ntricular white matter disease appears improved but not resolved since 06/26/20 and may have related to u nderlying metabolic or toxic disorder and/or vasculitis. 9. Acute systolic heart failure Resolved Cardiology following, appreciate input 10. Acute CVA (cerebrovascular accident) Suspected to be cardioembolic, patient found to have PFO Cardiology performed DOMINIK 08/17 in preparation fo r potential PFO closure. Continue medical management 11. Acute on chronic anemia Patient status post 2 units PRBCs Hemoglobin stable now. 12. Hyperkalemia - Stable - Losartan on hold 13. Hypertensive emergency resolved, treating essential HTN Cardiology on board. 14. Essential hypertension Continue nifedipine, labetalol, Imdur - Imdur uptitrated 15. Aortic dissection History of type B aortic dissection status post thoracic endovascular aortic repair at outside hospital Continue labetalol Manage blood pressure per cardiology 16. Multifocal pneumonia Continue meropenem 17. Acute respiratory failure with hypoxia Resolved, patient extubated prior to downgrade from ICU Now on room air 18. Dyspnea mild and likely due to atelectesis He denies SSCP No hypoxia noted I encouraged incentive spirometry Check a CXR Free Text DxA P Notes Free text DxA P notes: DVT prophylaxis: Heparin Advance Directives/Code Status: FULL CODE Patient's Functional Baseline prior to admit: Us es wheelchair Discharge Planning to Next Site of Care: Based on clinical conditions and medical necessi ties, family support, patient wishes, and discussion with multidisciplinary ca re team members, the current recommendation for the most appropriate discharge destination at this time is: Awaiting SNF or rehab placement Anticipated discharge date: 08/31/20 Quality: Gen Med Crit Care Current Medications Current medication review: I attest that the foregoing medication list in t he medical record is true, accurate, and complete to the best of my knowled ge. Electronically Signed by Mahin Altamirano MD on at 1329 RPT #:[id number] END OF REPORT 2020-08-27 12:08:00-00:00 [facility] Hospitalist Progress Note REPORT#:[id number] REPORT STATUS: Signed DATE:08/27/20 TIME: 1208 PATIENT: JORGE GOINS UNIT #: [id number] ROOM/BED: [address] : [birth year] AGE: 35 SEX: M ATTEND: Raphael Davila MD ADM AUTHOR: Marquita Betancur * ALL edits or amendments must be made on the [employer]/computer document * Subjective Chief Complaint: No new c/o Review of Systems Constitutional: Denies: generalized weakness. Respiratory: Denies: COATES (dyspnea on exertion), non productiv e cough, productive cough ( sputum). Cardiovascular: Denies: chest pain, edema. GI: Denies: abdominal pain, constipation, diarrhea, nausea, vomiting. Neuro: Denies: focal weakness (BLE). All systems rev neg: except as marked Objective General VS/I O: Vital Signs: Date Time Temp Pulse Resp B/P B/P Pulse O2 O2 F low FiO2 Mean Ox Delivery Rate 08/27 1131 37.0 86 16 143/83 103.2 100 Room air / 0727 37.1 86 16 133/67 89.2 100 Room air / 0456 80 100 / 0455 36.9 79 20 160/94 115.8 100 Room air 03/ 0455 36.9 79 20 160/94 115.8 100 Room air 08/26 2310 36.9 69 19 134/74 94.0 100 Room air 08/27 1999 36.8 88 18 143/83 102.9 100 Room air 08/27 1999 36.8 88 18 143/83 102.9 100 Room air 1553 37.0 81 18 134/82 99.4 99 Room air 03/ 1553 37.0 81 18 134/82 99.4 99 Room air 24 hour I O ending at 0700: 04 0700 03 1900 Intake Total Output Total 1000 Balance -1000 Output, Urine 1000 PATIENT WEIGHT: Weight (lb): 176 Weight (oz): 9.44 Weight (kg): 80.100 Medications: Active Meds + DC'd Last 24 Hrs Dextrose/Water 25 ML ONCE ONE IV (DC) Hydrocodone Bitart/Acetaminophen 1 TAB Q6H PRN P RN PO Aspirin 81 MG DAILY PO Atorvastatin Calcium 40 MG DAILY PO Acetaminophen 650 MG Q4H PRN PRN PO Cyclobenzaprine HCl 10 MG BID PRN PRN PO Heparin Sodium (Porcine) 5,000 UNIT Q12HR SUBQ Loperamide HCl 2 MG Q6H PRN PRN PO Zolpidem Tartrate 10 MG BEDTIME PRN PRN PO Simethicone 160 MG Q6H PRN PRN PO Hydralazine HCl 10 MG Q6H PRN PRN IV Isosorbide Mononitrate 40 MG BID PO (CKD) Magnesium 100 ML ASDIR PRN IV Magnesium Sulfate 50 ML ASDIR PRN IV Magnesium Sulfate 100 ML ASDIR PRN IV Nifedipine 30 MG Q6H PO Collagenase 1 APPLIC DAILY TOPICAL Nutrition assessment: The data set between the solid lines has been im ported from the dietitian's assessment. Any exceptions have been noted under Provider comments. BMI Calculated: 24.6 Nutrition related diagnosis: Overweight Nutrition diagnosis details: BMI 25-29.9 Nutrition problem: INCREASED PROTEIN NEEDS Nutrition etiology: WOUND HEALING Nutrition signs and symptoms: PT W/ MULTIPLE STA GE WOUNDS. Nutrition prescription: -RECOMMEND STEPHANIE NUE CARDIAC DIET (NO RENAL RESTRICTION NEEDS D/T JENNIFER RESOLVED) -NO ENSURE ENLIVE AT THI S TIME D/T PT REFUSED, GOOD APPETITE -RECOMMEND CONTINUE ANGELIA BID T O PROMOTE WOUND HEALING -RD TO F/U PER FNS PROTOCOL Dietitian name: Ester Cabrera RD LD Assessment completed: 08/24/20 Provider comments on imported dietitian assessme nt: Physical Exam General appearance: alert, awake Head/Eyes: atraumatic Cardiovascular: normal heart sounds, regular rat e rhythm Respiratory: aerating well, clear to auscultatio n Abdomen: non-tender, normal bowel sounds, soft Extremities: no clubbing 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, LE weakness Psychiatry: normal affect, normal mood Results Findings/Data: Laboratory Tests 08/27 0302 1957 Chemistry Sodium (137 - 145 mmol/L) 137 Potassium (3.4 - 5.0 mmol/L) 4.7 Chloride (98 - 107 mmol/L) 105 Carbon Dioxide (22 - 30 mmol/L) 22 BUN (9 - 20 mg/dL) 29 H Creatinine (0.7 - 1.3 mg/dL) 0.7 Glomerular Filtr Rate (>60) 166 Glucose (74 - 106 mg/dL) 84 POC Glucose (74 - 106 MG/DL) 74 79 Calcium (8.4 - 10.2 mg/dL) 9.2 Total Bilirubin (0.2 - 1.3 mg/dL) 0.6 Conjugated Bilirubin (0 - 0.3 mg/dL) 0 Unconjugated Bilirubin (0 - 1.1 mg/dL) 0.5 AST (15 - 46 U/L) 25 ALT (0 - 34 U/L) 20 Total Alk Phosphatase (38 - 126 U/L) 98 Total Protein (6.3 - 8.2 g/dL) 7.7 Albumin (3.5 - 5.0 g/dL) 3.8 Laboratory Tests 08/27 448 Hematology WBC (5.0 - 12.0 x10 3/uL) 5.4 RBC (4.70 - 6.10 x10 6/uL) 2.87 L Hgb (14.0 - 18.0 g/dL) 8.7 L Hct (37.0 - 49.0 %) 27.2 L MCV (80 - 94 fL) 95 H MCH (27 - 31 pg) 30.3 MCHC (33 - 37 g/dL) 32.0 L RDW (11.5 - 15.5 %) 17.3 H Plt Count (130 - 400 x10 3/uL) 268 MPV (9.4 - 16.4 fL) 9.8 Neut % (Auto) (43 - 65 %) 66.9 H Lymph % (Auto) (20.5 - 45.5 %) 19.9 L Citrus % (Auto) (5.5 - 11.7 %) 10.5 Eos % (Auto) (0.9 - 2.9 %) 1.7 Baso % (Auto) (0.2 - 1.0 %) 0.6 Neut # (Auto) (2.2 - 4.8 x10 3/uL) 3.65 Lymph # (Auto) (1.3 - 2.9 x10 3/uL) 1.08 L Citrus # (Auto) (0.3 - 0.8 x10 3/uL) 0.57 Eos # (Auto) (0.0 - 0.2 x10 3/uL) 0.09 Baso # (Auto) (0.0 - 0.1 x10 3/uL) 0.03 Immature Gran % (0.0 - 2.0 %) 0.4 Nucleated RBC % (0 - 1.0 %) 0.0 Results: labs reviewed, vital signs stable Diagnosis, Assessment Plan Problem List/A P: 1. JENNIFER (acute kidney injury) Creatinine stable. nephrology following. 2. Sepsis Continue Zuñiga change every month s/p 10 days of meropenem 3. UTI (urinary tract infection) Urine culture positive for Pseudomonas and Ente robacter s/p 10 days meropenem 4. Bacteremia due to Enterobacter species Continue meropenem Infectious disease following, appreciate input 5. Metabolic encephalopathy Resolved 6. H/O cardiac arrest Patient status post PEA, resolved 7. 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 Discussed with patient rega rding LP again, but states he still does not want at this time. Continue PT/OT 8. Abnormal MRI of head Could be related to CVA Repeat MRI 07/19/20 showed patchy perive ntricular white matter disease appears improved but not resolved since 06/26/20 and may have related to u nderlying metabolic or toxic disorder and/or vasculitis. 9. Acute systolic heart failure Resolved Cardiology following, appreciate input 10. Acute CVA (cerebrovascular accident) Suspected to be cardioembolic, patient found to have PFO Cardiology performed DOMINIK 08/17 in preparation fo r potential PFO closure. Continue medical management 11. Acute on chronic anemia Patient status post 2 units PRBCs Hemoglobin stable now. 12. Hyperkalemia - Stable - Losartan on hold 13. Hypertensive emergency resolved, treating essential HTN Cardiology on board. 14. Essential hypertension Continue nifedipine, labetalol, Imdur - Imdur uptitrated 15. Aortic dissection History of type B aortic dissection status post thoracic endovascular aortic repair at outside hospital Continue labetalol Manage blood pressure per cardiology 16. Multifocal pneumonia Continue meropenem 17. Acute respiratory failure with hypoxia Resolved, patient extubated prior to downgrade from ICU Now on room air Free Text DxA P Notes Free text DxA P notes: DVT prophylaxis: Heparin Dispo: d.c planning. [facility] RPT #:[id number] END OF REPORT 2020-08-27 12:08:00-00:00 [facility] Hospitalist Progress Note REPORT#:[id number] REPORT STATUS: Signed DATE:08/27/20 TIME: 1208 PATIENT: JORGE GOINS UNIT #: [id number] ROOM/BED: [address] : 86 AGE: 35 SEX: M ATTEND: Raphael Davila MD ADM AUTHOR: Marquita Betancur * ALL edits or amendments must be made on the [employer] document * Subjective Chief Complaint: No new c/o Review of Systems Constitutional: Denies: generalized weakness. Respiratory: Denies: COATES (dyspnea on exertion), non productiv e cough, productive cough ( sputum). Cardiovascular: Denies: chest pain, edema. GI: Denies: abdominal pain, constipation, diarrhea, nausea, vomiting. Neuro: Denies: focal weakness (BLE). All systems rev neg: except as marked Objective General VS/I O: Vital Signs: Date Time Temp Pulse Resp B/P B/P Pulse O2 O2 Flow FiO2 Mean Ox Delivery Rate 08/27 1131 37.0 86 16 143/83 103.2 100 Room air / 0727 37.1 86 16 133/67 89.2 100 Room air / 0456 80 100 / 0455 36.9 79 20 160/94 115.8 100 Room air / 0455 36.9 79 20 160/94 115.8 100 Room ai r 08/26 2310 36.9 69 19 134/74 94.0 100 Room air 08/27 1999 36.8 88 18 143/83 102.9 100 Room air 08/27 1999 36.8 88 18 143/83 102.9 100 Room air 08/26 1553 37.0 81 18 134/82 99.4 99 Room air 08/26 1553 37.0 81 18 134/82 99.4 99 Room air 24 hour I O ending at 0700: 08/27 0700 08/26 1900 Intake Total Output Total 1000 Balance -1000 Output, Urine 1000 PATIENT WEIGHT: Weight (lb): 176 Weight (oz): 9.44 Weight (kg): 80.100 Medications: Active Meds + DC'd Last 24 Hrs Dextrose/Water 25 ML ONCE ONE IV (DC) Hydrocodone Bitart/Acetaminophen 1 TAB Q6H PRN P RN PO Aspirin 81 MG DAILY PO Atorvastatin Calcium 40 MG DAILY PO Acetaminophen 650 MG Q4H PRN PRN PO Cyclobenzaprine HCl 10 MG BID PRN PRN PO Heparin Sodium (Porcine) 5,000 UNIT Q12HR SUBQ Loperamide HCl 2 MG Q6H PRN PRN PO Zolpidem Tartrate 10 MG BEDTIME PRN PRN PO Simethicone 160 MG Q6H PRN PRN PO Hydralazine HCl 10 MG Q6H PRN PRN IV Isosorbide Mononitrate 40 MG BID PO (CKD) Magnesium 100 ML ASDIR PRN IV Magnesium Sulfate 50 ML ASDIR PRN IV Magnesium Sulfate 100 ML ASDIR PRN IV Nifedipine 30 MG Q6H PO Collagenase 1 APPLIC DAILY TOPICAL Nutrition assessment: The data set between the solid lines has been im ported from the dietitian's assessment. Any exceptions have been noted under Provider comments. BMI Calculated: 24.6 Nutrition related diagnosis: Overweight Nutrition diagnosis details: BMI 25-29.9 Nutrition problem: INCREASED PROTEIN NEEDS Nutrition etiology: WOUND HEALING Nutrition signs and symptoms: PT W/ MULTIPLE STA GE WOUNDS. Nutrition prescription: -RECOMMEND STEPHANIE NUE CARDIAC DIET (NO RENAL RESTRICTION NEEDS D/T JENNIFER RESOLVED) -NO ENSURE ENLIVE AT THI S TIME D/T PT REFUSED, GOOD APPETITE -RECOMMEND CONTINUE ANGELIA BID T O PROMOTE WOUND HEALING -RD TO F/U PER FNS PROTOCOL Dietitian name: Ester Cabrera RD LD Assessment completed: 08/24/20 Provider comments on imported dietitian assessme nt: Physical Exam General appearance: alert, awake Head/Eyes: atraumatic Cardiovascular: normal heart sounds, regular rat e rhythm Respiratory: aerating well, clear to auscultatio n Abdomen: non-tender, normal bowel sounds, soft Extremities: no clubbing 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, LE weakness Psychiatry: normal affect, normal mood Results Findings/Data: Laboratory Tests 08/27 08/27 08/26 0449 0302 1957 Chemistry Sodium (137 - 145 mmol/L) 137 Potassium (3.4 - 5.0 mmol/L) 4.7 Chloride (98 - 107 mmol/L) 105 Carbon Dioxide (22 - 30 mmol/L) 22 BUN (9 - 20 mg/dL) 29 H Creatinine (0.7 - 1.3 mg/dL) 0.7 Glomerular Filtr Rate (>60) 166 Glucose (74 - 106 mg/dL) 84 POC Glucose (74 - 106 MG/DL) 74 79 Calcium (8.4 - 10.2 mg/dL) 9.2 Total Bilirubin (0.2 - 1.3 mg/dL) 0.6 Conjugated Bilirubin (0 - 0.3 mg/dL) 0 Unconjugated Bilirubin (0 - 1.1 mg/dL) 0.5 AST (15 - 46 U/L) 25 ALT (0 - 34 U/L) 20 Total Alk Phosphatase (38 - 126 U/L) 98 Total Protein (6.3 - 8.2 g/dL) 7.7 Albumin (3.5 - 5.0 g/dL) 3.8 Laboratory Tests 08/27 0449 Hematology WBC (5.0 - 12.0 x10 3/uL) 5.4 RBC (4.70 - 6.10 x10 6/uL) 2.87 L Hgb (14.0 - 18.0 g/dL) 8.7 L Hct (37.0 - 49.0 %) 27.2 L MCV (80 - 94 fL) 95 H MCH (27 - 31 pg) 30.3 MCHC (33 - 37 g/dL) 32.0 L RDW (11.5 - 15.5 %) 17.3 H Plt Count (130 - 400 x10 3/uL) 268 MPV (9.4 - 16.4 fL) 9.8 Neut % (Auto) (43 - 65 %) 66.9 H Lymph % (Auto) (20.5 - 45.5 %) 19.9 L Citrus % (Auto) (5.5 - 11.7 %) 10.5 Eos % (Auto) (0.9 - 2.9 %) 1.7 Baso % (Auto) (0.2 - 1.0 %) 0.6 Neut # (Auto) (2.2 - 4.8 x10 3/uL) 3.65 Lymph # (Auto) (1.3 - 2.9 x10 3/uL) 1.08 L Citrus # (Auto) (0.3 - 0.8 x10 3/uL) 0.57 Eos # (Auto) (0.0 - 0.2 x10 3/uL) 0.09 Baso # (Auto) (0.0 - 0.1 x10 3/uL) 0.03 Immature Gran % (0.0 - 2.0 %) 0.4 Nucleated RBC % (0 - 1.0 %) 0.0 Results: labs reviewed, vital signs stable Diagnosis, Assessment Plan Problem List/A P: 1. JENNIFER (acute kidney injury) Creatinine stable. nephrology following. 2. Sepsis Continue Zuñiga change every month s/p 10 days of meropenem 3. UTI (urinary tract infection) Urine culture positive for Pseudomonas and Ente robacter s/p 10 days meropenem 4. Bacteremia due to Enterobacter species Continue meropenem Infectious disease following, appreciate input 5. Metabolic encephalopathy Resolved 6. H/O cardiac arrest Patient status post PEA, resolved 7. 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 Discussed with patient rega rding LP again, but states he still does not want at this time. Continue PT/OT 8. Abnormal MRI of head Could be related to CVA Repeat MRI 07/19/20 showed patchy perive ntricular white matter disease appears improved but not resolved since 06/26/20 and may have related to u nderlying metabolic or toxic disorder and/or vasculitis. 9. Acute systolic heart failure Resolved Cardiology following, appreciate input 10. Acute CVA (cerebrovascular accident) Suspected to be cardioembolic, patient found to have PFO Cardiology performed DOMINIK 08/17 in preparation fo r potential PFO closure. Continue medical management 11. Acute on chronic anemia Patient status post 2 units PRBCs Hemoglobin stable now. 12. Hyperkalemia - Stable - Losartan on hold 13. Hypertensive emergency resolved, treating essential HTN Cardiology on board. 14. Essential hypertension Continue nifedipine, labetalol, Imdur - Imdur uptitrated 15. Aortic dissection History of type B aortic dissection status post thoracic endovascular aortic repair at outside hospital Continue labetalol Manage blood pressure per cardiology 16. Multifocal pneumonia Continue meropenem 17. Acute respiratory failure with hypoxia Resolved, patient extubated prior to downgrade from ICU Now on room air Free Text DxA P Notes Free text DxA P notes: DVT prophylaxis: Heparin Dispo: d.c planning. [facility] at 0302 RPT #:[id number] END OF REPORT 2020-08-26 14:48:00-00:00 [facility] Hospitalist Progress Note REPORT#:[id number] REPORT STATUS: Signed DATE:08/26/20 TIME: 1448 PATIENT: JORGE GOINS UNIT #: [id number] ROOM/BED: 3320-A : 86 AGE: 35 SEX: M ATTEND: Raphael Davila MD ADM AUTHOR: Marquita Betancur * ALL edits or amendments must be made on the [employer]/computer document * Subjective Chief Complaint: No new c/o Review of Systems Constitutional: Denies: generalized weakness. Respiratory: Denies: SOB. Cardiovascular: Denies: chest pain. GI: Denies: abdominal pain, constipation, diarrhea, nausea, vomiting. Objective General VS/I O: Vital Signs: Date Time Temp Pulse Resp B/P B/P Pulse O2 O2 Flow FiO2 Mean Ox Delivery Rate 08/26 1200 37.0 97 18 110/67 81.2 100 Room air 08/26 1123 102 146/87 106.7 08/26 0750 36.8 88 17 156/83 107.1 100 08/26 0349 37.1 86 18 125/70 88.4 100 Room air 08/26 0349 37.1 86 18 125/70 88.4 100 Room air 08/25 2345 37.0 94 18 149/65 92.8 100 Room air / 2345 37.0 94 18 149/65 92.8 100 Room air 08/25 2007 37.0 85 18 176/92 120.3 100 Room air / 1546 37.1 81 16 132/75 93.8 100 24 hour I O ending at 0700: 08/26 0700 08/25 1900 Intake Total 300 Output Total 325 1750 Balance -325 -1450 Intake, Oral 300 Output, Urine 325 1750 PATIENT WEIGHT: Weight (lb): 176 Weight (oz): 9.44 Weight (kg): 80.100 Medications: Active Meds + DC'd Last 24 Hrs Hydrocodone Bitart/Acetaminophen 1 TAB Q6H PRN P RN PO Aspirin 81 MG DAILY PO Atorvastatin Calcium 40 MG DAILY PO Dextrose/Water 0 .STK-MED ONE IV (DC) Acetaminophen 650 MG Q4H PRN PRN PO Cyclobenzaprine HCl 10 MG BID PRN PRN PO Cyclobenzaprine HCl 5 MG BID PRN PRN PO (DC) Heparin Sodium (Porcine) 5,000 UNIT Q12HR SUBQ Loperamide HCl 2 MG Q6H PRN PRN PO Zolpidem Tartrate 10 MG BEDTIME PRN PRN PO Simethicone 160 MG Q6H PRN PRN PO Hydrocodone Bitart/Acetaminophen 1 TAB Q6H PRN P RN PO (DC) Hydralazine HCl 10 MG Q6H PRN PRN IV Isosorbide Mononitrate 40 MG BID PO (CKD) Magnesium 100 ML ASDIR PRN IV Magnesium Sulfate 50 ML ASDIR PRN IV Magnesium Sulfate 100 ML ASDIR PRN IV Nifedipine 30 MG Q6H PO Collagenase 1 APPLIC DAILY TOPICAL Nutrition assessment: The data set between the solid lines has been im ported from the dietitian's assessment. Any exceptions have been noted under Provider comments. BMI Calculated: 24.6 Nutrition related diagnosis: Overweight Nutrition diagnosis details: BMI 25-29.9 Nutrition problem: INCREASED PROTEIN NEEDS Nutrition etiology: WOUND HEALING Nutrition signs and symptoms: PT W/ MULTIPLE STA GE WOUNDS. Nutrition prescription: -RECOMMEND STEPHANIE NUE CARDIAC DIET (NO RENAL RESTRICTION NEEDS D/T JENNIFER RESOLVED) -NO ENSURE ENLIVE AT THI S TIME D/T PT REFUSED, GOOD APPETITE -RECOMMEND CONTINUE ANGELIA BID T O PROMOTE WOUND HEALING -RD TO F/U PER FNS PROTOCOL Dietitian name: Ester Cabrera RD LD Assessment completed: 08/24/20 Provider comments on imported dietitian assessme nt: Physical Exam General appearance: alert, awake Head/Eyes: atraumatic Cardiovascular: normal heart sounds, regular rat e rhythm Respiratory: aerating well, clear to auscultatio n Abdomen: non-tender, normal bowel sounds, soft Extremities: no clubbing 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, LE weakness Psychiatry: normal affect, normal mood Results Findings/Data: Laboratory Tests 08/26 08/26 08/26 08/26 08/26 1204 0430 0413 0359 0353 Chemistry POC Glucose (74 - 106 MG/DL) 87 86 47 *L 60 L 6 1 L 08/26 08/26 0346 0204 Chemistry Sodium (137 - 145 mmol/L) 137 Potassium (3.4 - 5.0 mmol/L) 4.7 Chloride (98 - 107 mmol/L) 105 Carbon Dioxide (22 - 30 mmol/L) 20 L BUN (9 - 20 mg/dL) 34 H Creatinine (0.7 - 1.3 mg/dL) 0.8 Glomerular Filtr Rate (>60) 143 Glucose (74 - 106 mg/dL) 81 POC Glucose (74 - 106 MG/DL) 66 L Calcium (8.4 - 10.2 mg/dL) 9.3 Total Bilirubin (0.2 - 1.3 mg/dL) 0.6 Conjugated Bilirubin (0 - 0.3 mg/dL) 0 Unconjugated Bilirubin (0 - 1.1 mg/dL) 0.2 AST (15 - 46 U/L) 46 ALT (0 - 34 U/L) 23 Total Alk Phosphatase (38 - 126 U/L) 107 Total Protein (6.3 - 8.2 g/dL) 8.0 Albumin (3.5 - 5.0 g/dL) 4.1 Laboratory Tests 08/26 0204 Hematology WBC (5.0 - 12.0 x10 3/uL) 7.1 RBC (4.70 - 6.10 x10 6/uL) 3.09 L Hgb (14.0 - 18.0 g/dL) 9.3 L Hct (37.0 - 49.0 %) 29.4 L MCV (80 - 94 fL) 95 H MCH (27 - 31 pg) 30.1 MCHC (33 - 37 g/dL) 31.6 L RDW (11.5 - 15.5 %) 17.6 H Plt Count (130 - 400 x10 3/uL) 353 MPV (9.4 - 16.4 fL) 9.4 Neut % (Auto) (43 - 65 %) 72.4 H Lymph % (Auto) (20.5 - 45.5 %) 17.3 L Citrus % (Auto) (5.5 - 11.7 %) 7.8 Eos % (Auto) (0.9 - 2.9 %) 1.3 Baso % (Auto) (0.2 - 1.0 %) 0.6 Neut # (Auto) (2.2 - 4.8 x10 3/uL) 5.11 H Lymph # (Auto) (1.3 - 2.9 x10 3/uL) 1.22 L Citrus # (Auto) (0.3 - 0.8 x10 3/uL) 0.55 Eos # (Auto) (0.0 - 0.2 x10 3/uL) 0.09 Baso # (Auto) (0.0 - 0.1 x10 3/uL) 0.04 Immature Gran % (0.0 - 2.0 %) 0.6 Nucleated RBC % (0 - 1.0 %) 0.0 Results: labs reviewed, vital signs stable Diagnosis, Assessment Plan Problem List/A P: 1. JENNIFER (acute kidney injury) Creatinine stable. nephrology following. 2. Sepsis Continue Zuñiga change every month s/p 10 days of meropenem 3. UTI (urinary tract infection) Urine culture positive for Pseudomonas and Ente robacter s/p 10 days meropenem 4. Bacteremia due to Enterobacter species Continue meropenem Infectious disease following, appreciate input 5. Metabolic encephalopathy Resolved 6. H/O cardiac arrest Patient status post PEA, resolved 7. 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 Discussed with patient rega rding LP again, but states he still does not want at this time. Continue PT/OT 8. Abnormal MRI of head Could be related to CVA Repeat MRI 07/19/20 showed patchy perive ntricular white matter disease appears improved but not resolved since 06/26/20 and may have related to u nderlying metabolic or toxic disorder and/or vasculitis. 9. Acute systolic heart failure Resolved Cardiology following, appreciate input 10. Acute CVA (cerebrovascular accident) Suspected to be cardioembolic, patient found to have PFO Cardiology performed DOMINIK 08/17 in preparation fo r potential PFO closure. Continue medical management 11. Acute on chronic anemia Patient status post 2 units PRBCs Hemoglobin stable now. 12. Hyperkalemia - Stable - Losartan on hold 13. Hypertensive emergency resolved, treating essential HTN Cardiology on board. 14. Essential hypertension Continue nifedipine, labetalol, Imdur - Imdur uptitrated 15. Aortic dissection History of type B aortic dissection status post thoracic endovascular aortic repair at outside hospital Continue labetalol Manage blood pressure per cardiology 16. Multifocal pneumonia Continue meropenem 17. Acute respiratory failure with hypoxia Resolved, patient extubated prior to downgrade from ICU Now on room air Free Text DxA P Notes Free text DxA P notes: DVT prophylaxis: Heparin Dispo: IRF vs home health;CM aware and helping w [facility] d/c planning at 1451 RPT #:[id number] END OF REPORT 2020-08-26 14:48:00-00:00 [facility] Hospitalist Progress Note REPORT#:[id number] REPORT STATUS: Signed DATE:08/26/20 TIME: 1448 PATIENT: JORGE GOINS UNIT #: [id number] ROOM/BED: [address] : 86 AGE: 35 SEX: M ATTEND: Raphael Davila MD ADM AUTHOR: Marquita Betancur * ALL edits or amendments must be made on the [employer]/computer document * Subjective Chief Complaint: No new c/o Review of Systems Constitutional: Denies: generalized weakness. Respiratory: Denies: SOB. Cardiovascular: Denies: chest pain. GI: Denies: abdominal pain, constipation, diarrhea, nausea, vomiting. Objective General VS/I O: Vital Signs: Date Time Temp Pulse Resp B/P B/P Pulse O2 O2 F low FiO2 Mean Ox Delivery Rate 08/26 1200 37.0 97 18 110/67 81.2 100 Room air 08/26 1123 102 146/87 106.7 08/26 0750 36.8 88 17 156/83 107.1 100 08/26 0349 37.1 86 18 125/70 88.4 100 Room air 08/26 0349 37.1 86 18 125/70 88.4 100 Room air 08/25 2345 37.0 94 18 149/65 92.8 100 Room air 08/25 2345 37.0 94 18 149/65 92.8 100 Room air 08/25 2007 37.0 85 18 176/92 120.3 100 Room air 08/25 1546 37.1 81 16 132/75 93.8 100 24 hour I O ending at 0700: 08/26 0700 08/25 1900 Intake Total 300 Output Total 325 1750 Balance -325 -1450 Intake, Oral 300 Output, Urine 325 1750 PATIENT WEIGHT: Weight (lb): 176 Weight (oz): 9.44 Weight (kg): 80.100 Medications: Active Meds + DC'd Last 24 Hrs Hydrocodone Bitart/Acetaminophen 1 TAB Q6H PRN P RN PO Aspirin 81 MG DAILY PO Atorvastatin Calcium 40 MG DAILY PO Dextrose/Water 0 .STK-MED ONE IV (DC) Acetaminophen 650 MG Q4H PRN PRN PO Cyclobenzaprine HCl 10 MG BID PRN PRN PO Cyclobenzaprine HCl 5 MG BID PRN PRN PO (DC) Heparin Sodium (Porcine) 5,000 UNIT Q12HR SUBQ Loperamide HCl 2 MG Q6H PRN PRN PO Zolpidem Tartrate 10 MG BEDTIME PRN PRN PO Simethicone 160 MG Q6H PRN PRN PO Hydrocodone Bitart/Acetaminophen 1 TAB Q6H PRN P RN PO (DC) Hydralazine HCl 10 MG Q6H PRN PRN IV Isosorbide Mononitrate 40 MG BID PO (CKD) Magnesium 100 ML ASDIR PRN IV Magnesium Sulfate 50 ML ASDIR PRN IV Magnesium Sulfate 100 ML ASDIR PRN IV Nifedipine 30 MG Q6H PO Collagenase 1 APPLIC DAILY TOPICAL Nutrition assessment: The data set between the solid lines has been im ported from the dietitian's assessment. Any exceptions have been noted under Provider comments. BMI Calculated: 24.6 Nutrition related diagnosis: Overweight Nutrition diagnosis details: BMI 25-29.9 Nutrition problem: INCREASED PROTEIN NEEDS Nutrition etiology: WOUND HEALING Nutrition signs and symptoms: PT W/ MULTIPLE STA GE WOUNDS. Nutrition prescription: -RECOMMEND STEPHANIE NUE CARDIAC DIET (NO RENAL RESTRICTION NEEDS D/T JENNIFER RESOLVED) -NO ENSURE ENLIVE AT THI S TIME D/T PT REFUSED, GOOD APPETITE -RECOMMEND CONTINUE ANGELIA BID T O PROMOTE WOUND HEALING -RD TO F/U PER FNS PROTOCOL Dietitian name: Ester Cabrera RD LD Assessment completed: 08/24/20 Provider comments on imported dietitian assessme nt: Physical Exam General appearance: alert, awake Head/Eyes: atraumatic Cardiovascular: normal heart sounds, regular rat e rhythm Respiratory: aerating well, clear to auscultatio n Abdomen: non-tender, normal bowel sounds, soft Extremities: no clubbing 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, LE weakness Psychiatry: normal affect, normal mood Results Findings/Data: Laboratory Tests 08/26 08/26 08/26 08/26 08/26 1204 0430 0413 0359 0353 Chemistry POC Glucose (74 - 106 MG/DL) 87 86 47 *L 60 L 6 1 L 08/26 08/26 0346 0204 Chemistry Sodium (137 - 145 mmol/L) 137 Potassium (3.4 - 5.0 mmol/L) 4.7 Chloride (98 - 107 mmol/L) 105 Carbon Dioxide (22 - 30 mmol/L) 20 L BUN (9 - 20 mg/dL) 34 H Creatinine (0.7 - 1.3 mg/dL) 0.8 Glomerular Filtr Rate (>60) 143 Glucose (74 - 106 mg/dL) 81 POC Glucose (74 - 106 MG/DL) 66 L Calcium (8.4 - 10.2 mg/dL) 9.3 Total Bilirubin (0.2 - 1.3 mg/dL) 0.6 Conjugated Bilirubin (0 - 0.3 mg/dL) 0 Unconjugated Bilirubin (0 - 1.1 mg/dL) 0.2 AST (15 - 46 U/L) 46 ALT (0 - 34 U/L) 23 Total Alk Phosphatase (38 - 126 U/L) 107 Total Protein (6.3 - 8.2 g/dL) 8.0 Albumin (3.5 - 5.0 g/dL) 4.1 Laboratory Tests 08/26 0204 Hematology WBC (5.0 - 12.0 x10 3/uL) 7.1 RBC (4.70 - 6.10 x10 6/uL) 3.09 L Hgb (14.0 - 18.0 g/dL) 9.3 L Hct (37.0 - 49.0 %) 29.4 L MCV (80 - 94 fL) 95 H MCH (27 - 31 pg) 30.1 MCHC (33 - 37 g/dL) 31.6 L RDW (11.5 - 15.5 %) 17.6 H Plt Count (130 - 400 x10 3/uL) 353 MPV (9.4 - 16.4 fL) 9.4 Neut % (Auto) (43 - 65 %) 72.4 H Lymph % (Auto) (20.5 - 45.5 %) 17.3 L Citrus % (Auto) (5.5 - 11.7 %) 7.8 Eos % (Auto) (0.9 - 2.9 %) 1.3 Baso % (Auto) (0.2 - 1.0 %) 0.6 Neut # (Auto) (2.2 - 4.8 x10 3/uL) 5.11 H Lymph # (Auto) (1.3 - 2.9 x10 3/uL) 1.22 L Citrus # (Auto) (0.3 - 0.8 x10 3/uL) 0.55 Eos # (Auto) (0.0 - 0.2 x10 3/uL) 0.09 Baso # (Auto) (0.0 - 0.1 x10 3/uL) 0.04 Immature Gran % (0.0 - 2.0 %) 0.6 Nucleated RBC % (0 - 1.0 %) 0.0 Results: labs reviewed, vital signs stable Diagnosis, Assessment Plan Problem List/A P: 1. JENNIFER (acute kidney injury) Creatinine stable. nephrology following. 2. Sepsis Continue Zuñiga change every month s/p 10 days of meropenem 3. UTI (urinary tract infection) Urine culture positive for Pseudomonas and Ente robacter s/p 10 days meropenem 4. Bacteremia due to Enterobacter species Continue meropenem Infectious disease following, appreciate input 5. Metabolic encephalopathy Resolved 6. H/O cardiac arrest Patient status post PEA, resolved 7. 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 Discussed with patient rega rding LP again, but states he still does not want at this time. Continue PT/OT 8. Abnormal MRI of head Could be related to CVA Repeat MRI 07/19/20 showed patchy perive ntricular white matter disease appears improved but not resolved since 06/26/20 and may have related to u nderlying metabolic or toxic disorder and/or vasculitis. 9. Acute systolic heart failure Resolved Cardiology following, appreciate input 10. Acute CVA (cerebrovascular accident) Suspected to be cardioembolic, patient found to have PFO Cardiology performed DOMINIK 08/17 in preparation fo r potential PFO closure. Continue medical management 11. Acute on chronic anemia Patient status post 2 units PRBCs Hemoglobin stable now. 12. Hyperkalemia - Stable - Losartan on hold 13. Hypertensive emergency resolved, treating essential HTN Cardiology on board. 14. Essential hypertension Continue nifedipine, labetalol, Imdur - Imdur uptitrated 15. Aortic dissection History of type B aortic dissection status post thoracic endovascular aortic repair at outside hospital Continue labetalol Manage blood pressure per cardiology 16. Multifocal pneumonia Continue meropenem 17. Acute respiratory failure with hypoxia Resolved, patient extubated prior to downgrade from ICU Now on room air Free Text DxA P Notes Free text DxA P notes: DVT prophylaxis: Heparin Dispo: IRF vs home health;CM aware and helping w ith d/c planning at 1451 Electronically Signed by Alfonso Thomas MD on 09/13 at 7444 RPT #:[id number] END OF REPORT 2020-08-25 16:50:00-00:[address] [facility] ([facility]) Nephrology Progress Note REPORT#:[id number] REPORT STATUS: Signed DATE:03/02/21 TIME: 1650 PATIENT: JORGE GOINS UNIT #: [id number] ROOM/BED: [address] : 86 AGE: 35 SEX: M ATTEND: Raphael Davila MD ADM AUTHOR: Stevie Andersen MD R2 * ALL edits or amendments must be made on the [employer]/computer document * Subjective Chief Complaint: Htn emergency, ams HPI: no events Review of Systems All systems rev neg: except as marked Objective General VS/I O: Vital Signs: Date Time Temp Pulse Resp B/P B/P Pulse O2 O2 F low FiO2 Mean Ox Delivery Rate 08/25 1546 37.1 81 16 132/75 93.8 100 08/25 1231 37.1 81 16 139/88 104.8 99 08/25 0730 36.9 83 20 126/75 92 100 / 0437 37.1 66 19 142/80 101.0 100 Room air 08/24 2326 36.6 89 18 135/77 96.3 100 Room air 08/24 1917 36.7 74 18 147/77 100.6 100 Room ai r 08/24 1655 36.9 77 18 149/87 107.8 98 Room air PATIENT WEIGHT: Weight (lb): 176 Weight (oz): 9.44 Weight (kg): 80.100 Medications Active Meds + DC'd Last 24 Hrs Aspirin 81 MG DAILY PO Atorvastatin Calcium 40 MG DAILY PO Acetaminophen 650 MG Q4H PRN PRN PO Cyclobenzaprine HCl 10 MG BID PRN PRN PO Cyclobenzaprine HCl 5 MG BID PRN PRN PO (DC) Heparin Sodium (Porcine) 5,000 UNIT Q12HR SUBQ Loperamide HCl 2 MG Q6H PRN PRN PO Zolpidem Tartrate 10 MG BEDTIME PRN PRN PO Simethicone 160 MG Q6H PRN PRN PO Hydrocodone Bitart/Acetaminophen 1 TAB Q6H PRN P RN PO Hydralazine HCl 10 MG Q6H PRN PRN IV Isosorbide Mononitrate 40 MG BID PO (CKD) Magnesium 100 ML ASDIR PRN IV Magnesium Sulfate 50 ML ASDIR PRN IV Magnesium Sulfate 100 ML ASDIR PRN IV Nifedipine 30 MG Q6H PO Collagenase 1 APPLIC DAILY TOPICAL Aspirin 81 MG DAILY PO (DC) Atorvastatin Calcium 40 MG DAILY PO (DC) Acetaminophen 650 MG Q4H PRN PRN PO (DC) Physical Exam General appearance: alert, awake ENT: moist mucous membranes Neck: no JVD, no masses or swelling Cardiovascular: normal heart sounds, regular rat e and rhythm Respiratory: aerating well, clear to auscultatio n Abdomen: normal bowel sounds, soft Extremities: no edema Musculoskeletal: decreased ROM 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 Skin: dry Results Findings/Data: Laboratory Tests 08/25 08/24 0337 1653 Chemistry Sodium (137 - 145 mmol/L) 137 Potassium (3.4 - 5.0 mmol/L) 4.3 Chloride (98 - 107 mmol/L) 106 Carbon Dioxide (22 - 30 mmol/L) 21 L BUN (9 - 20 mg/dL) 29 H Creatinine (0.7 - 1.3 mg/dL) 0.7 Glomerular Filtr Rate (>60) 166 Glucose (74 - 106 mg/dL) 84 POC Glucose (74 - 106 MG/DL) 88 Calcium (8.4 - 10.2 mg/dL) 8.9 Total Bilirubin (0.2 - 1.3 mg/dL) 0.5 Conjugated Bilirubin (0 - 0.3 mg/dL) 0 Unconjugated Bilirubin (0 - 1.1 mg/dL) 0.2 AST (15 - 46 U/L) 28 ALT (0 - 34 U/L) 22 Total Alk Phosphatase (38 - 126 U/L) 97 Total Protein (6.3 - 8.2 g/dL) 7.6 Albumin (3.5 - 5.0 g/dL) 3.8 Laboratory Tests 08/25 0337 Hematology WBC (5.0 - 12.0 x10 3/uL) 5.4 RBC (4.70 - 6.10 x10 6/uL) 2.93 L Hgb (14.0 - 18.0 g/dL) 8.8 L Hct (37.0 - 49.0 %) 27.5 L MCV (80 - 94 fL) 94 MCH (27 - 31 pg) 30.0 MCHC (33 - 37 g/dL) 32.0 L RDW (11.5 - 15.5 %) 17.5 H Plt Count (130 - 400 x10 3/uL) 337 MPV (9.4 - 16.4 fL) 9.2 L Neut % (Auto) (43 - 65 %) 69.2 H Lymph % (Auto) (20.5 - 45.5 %) 19.4 L Citrus % (Auto) (5.5 - 11.7 %) 8.8 Eos % (Auto) (0.9 - 2.9 %) 1.3 Baso % (Auto) (0.2 - 1.0 %) 0.9 Neut # (Auto) (2.2 - 4.8 x10 3/uL) 3.72 Lymph # (Auto) (1.3 - 2.9 x10 3/uL) 1.04 L Citrus # (Auto) (0.3 - 0.8 x10 3/uL) 0.47 Eos # (Auto) (0.0 - 0.2 x10 3/uL) 0.07 Baso # (Auto) (0.0 - 0.1 x10 3/uL) 0.05 Immature Gran % (0.0 - 2.0 %) 0.4 Nucleated RBC % (0 - 1.0 %) 0.0 Diagnosis, Assessment Plan Hospital course to date: mr goins is a 35yo male with hisoty of AAA and htn who has had a prolonged hospitalization due to PEA a rrest, respiratory failure s/p intubation, multiple embolic strokes, new onset HFrEF and JENNIFER, now do wngraded from ICU given significant recovery. Nephro initially consulted for new onset jennifer. #JENNIFER w/severe metabolic acidosis -resolved -eGFR stable -continue to monitor #enterobacter bacteremia-resolved #psa uti s/p abx #multifocal ischemic strokes #hfref-stable #htn -nifedipine, isosorbide #AAA recs; stable renal-white, dispo per primary Will sign off, please call with questions! Plan discussed with: patient, nurse Attestations Attestation needed: supervising physician (dr marzena bae) at 1652 RPT #:[id number] END OF REPORT 2020-08-25 16:50:00-00:[address] [facility] ([facility]) Nephrology Progress Note REPORT#:[id number] REPORT STATUS: Signed DATE:08/25/20 TIME: 1649 PATIENT: JORGE GOINS UNIT #: [id number] ROOM/BED: [address] : 86 AGE: 35 SEX: M ATTEND: Raphael Davila MD ADM AUTHOR: Stevie Andersen R2 * ALL edits or amendments must be made on the [employer]/computer document * Pineda Andersen 08/25/20 1650: Subjective Chief Complaint: Htn emergency, ams HPI: no events Review of Systems All systems rev neg: except as marked Objective General VS/I O: Vital Signs: Date Time Temp Pulse Resp B/P B/P Pulse O2 O2 F low FiO2 Mean Ox Delivery Rate 08/25 1546 37.1 81 16 132/75 93.8 100 08/25 1231 37.1 81 16 139/88 104.8 99 08/25 0730 36.9 83 20 126/75 92 100 08/25 0437 37.1 66 19 142/80 101.0 100 Room ai r 08/24 2326 36.6 89 18 135/77 96.3 100 Room air 08/24 1917 36.7 74 18 147/77 100.6 100 Room air 08/24 1655 36.9 77 18 149/87 107.8 98 Room air PATIENT WEIGHT: Weight (lb): 176 Weight (oz): 9.44 Weight (kg): 80.100 Medications Active Meds + DC'd Last 24 Hrs Aspirin 81 MG DAILY PO Atorvastatin Calcium 40 MG DAILY PO Acetaminophen 650 MG Q4H PRN PRN PO Cyclobenzaprine HCl 10 MG BID PRN PRN PO Cyclobenzaprine HCl 5 MG BID PRN PRN PO (DC) Heparin Sodium (Porcine) 5,000 UNIT Q12HR SUBQ Loperamide HCl 2 MG Q6H PRN PRN PO Zolpidem Tartrate 10 MG BEDTIME PRN PRN PO Simethicone 160 MG Q6H PRN PRN PO Hydrocodone Bitart/Acetaminophen 1 TAB Q6H PRN P RN PO Hydralazine HCl 10 MG Q6H PRN PRN IV Isosorbide Mononitrate 40 MG BID PO (CKD) Magnesium 100 ML ASDIR PRN IV Magnesium Sulfate 50 ML ASDIR PRN IV Magnesium Sulfate 100 ML ASDIR PRN IV Nifedipine 30 MG Q6H PO Collagenase 1 APPLIC DAILY TOPICAL Aspirin 81 MG DAILY PO (DC) Atorvastatin Calcium 40 MG DAILY PO (DC) Acetaminophen 650 MG Q4H PRN PRN PO (DC) Physical Exam General appearance: alert, awake ENT: moist mucous membranes Neck: no JVD, no masses or swelling Cardiovascular: normal heart sounds, regular rat e and rhythm Respiratory: aerating well, clear to auscultatio n Abdomen: normal bowel sounds, soft Extremities: no edema Musculoskeletal: decreased ROM 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 Skin: dry Results Findings/Data: Laboratory Tests 08/25 1653 Chemistry Sodium (137 - 145 mmol/L) 137 Potassium (3.4 - 5.0 mmol/L) 4.3 Chloride (98 - 107 mmol/L) 106 Carbon Dioxide (22 - 30 mmol/L) 21 L BUN (9 - 20 mg/dL) 29 H Creatinine (0.7 - 1.3 mg/dL) 0.7 Glomerular Filtr Rate (>60) 166 Glucose (74 - 106 mg/dL) 84 POC Glucose (74 - 106 MG/DL) 88 Calcium (8.4 - 10.2 mg/dL) 8.9 Total Bilirubin (0.2 - 1.3 mg/dL) 0.5 Conjugated Bilirubin (0 - 0.3 mg/dL) 0 Unconjugated Bilirubin (0 - 1.1 mg/dL) 0.2 AST (15 - 46 U/L) 28 ALT (0 - 34 U/L) 22 Total Alk Phosphatase (38 - 126 U/L) 97 Total Protein (6.3 - 8.2 g/dL) 7.6 Albumin (3.5 - 5.0 g/dL) 3.8 Laboratory Tests 08/25 033 Hematology WBC (5.0 - 12.0 x10 3/uL) 5.4 RBC (4.70 - 6.10 x10 6/uL) 2.93 L Hgb (14.0 - 18.0 g/dL) 8.8 L Hct (37.0 - 49.0 %) 27.5 L MCV (80 - 94 fL) 94 MCH (27 - 31 pg) 30.0 MCHC (33 - 37 g/dL) 32.0 L RDW (11.5 - 15.5 %) 17.5 H Plt Count (130 - 400 x10 3/uL) 337 MPV (9.4 - 16.4 fL) 9.2 L Neut % (Auto) (43 - 65 %) 69.2 H Lymph % (Auto) (20.5 - 45.5 %) 19.4 L Citrus % (Auto) (5.5 - 11.7 %) 8.8 Eos % (Auto) (0.9 - 2.9 %) 1.3 Baso % (Auto) (0.2 - 1.0 %) 0.9 Neut # (Auto) (2.2 - 4.8 x10 3/uL) 3.72 Lymph # (Auto) (1.3 - 2.9 x10 3/uL) 1.04 L Citrus # (Auto) (0.3 - 0.8 x10 3/uL) 0.47 Eos # (Auto) (0.0 - 0.2 x10 3/uL) 0.07 Baso # (Auto) (0.0 - 0.1 x10 3/uL) 0.05 Immature Gran % (0.0 - 2.0 %) 0.4 Nucleated RBC % (0 - 1.0 %) 0.0 Diagnosis, Assessment Plan Hospital course to date: mr goins is a 35yo male with hisoty of AAA and htn who has had a prolonged hospitalization due to PEA a rrest, respiratory failure s/p intubation, multiple embolic strokes, new onset HFrEF and JENNIFER, now do wngraded from ICU given significant recovery. Nephro initially consulted for new onset jennifer. #JENNIFER w/severe metabolic acidosis -resolved -eGFR stable -continue to monitor #enterobacter bacteremia-resolved #psa uti s/p abx #multifocal ischemic strokes #hfref-stable #htn -nifedipine, isosorbide #AAA recs; stable renal-white, dispo per primary Will sign off, please call with questions! Plan discussed with: patient, nurse Attestations Attestation needed: supervising physician (dr marzena bae) Jojo York 08/25/20 2012: Attestations Attestation needed: teaching physician Physician Attestation Agree w/findings plan: Agree with the findings and plan as documented at 1652 at 2011 RPT #:[id number] END OF REPORT 2020-08-25 14:51:00-00:00 [facility] Hospitalist Progress Note REPORT#:[id number] REPORT STATUS: Signed DATE:08/25/20 TIME: 1451 PATIENT: JORGE GOINS UNIT #: [id number] ROOM/BED: [address] : 86 AGE: 35 SEX: M ATTEND: Raphael Davila MD ADM AUTHOR: Marquita Betancur * ALL edits or amendments must be made on the rimidi/computer document * Subjective Chief Complaint: Abd pain improving Review of Systems Constitutional: Denies: generalized weakness. Respiratory: Denies: COATES (dyspnea on exertion), SOB. Cardiovascular: Denies: chest pain, edema. GI: Denies: abdominal pain, constipation, diarrhea, nausea, vomiting. All systems rev neg: except as marked Objective General VS/I O: Vital Signs: Date Time Temp Pulse Resp B/P B/P Pulse O2 O2 F low FiO2 Mean Ox Delivery Rate 08/25 1546 37.1 81 16 132/75 93.8 100 08/25 1231 37.1 81 16 139/88 104.8 99 08/25 0730 36.9 83 20 126/75 92 100 08/25 0437 37.1 66 19 142/80 101.0 100 Room air 08/24 2326 36.6 89 18 135/77 96.3 100 Room air 08/24 1917 36.7 74 18 147/77 100.6 100 Room air 08/24 1655 36.9 77 18 149/87 107.8 98 Room air PATIENT WEIGHT: Weight (lb): 176 Weight (oz): 9.44 Weight (kg): 80.100 Medications: Active Meds + DC'd Last 24 Hrs Aspirin 81 MG DAILY PO Atorvastatin Calcium 40 MG DAILY PO Acetaminophen 650 MG Q4H PRN PRN PO Cyclobenzaprine HCl 10 MG BID PRN PRN PO Cyclobenzaprine HCl 5 MG BID PRN PRN PO (DC) Heparin Sodium (Porcine) 5,000 UNIT Q12HR SUBQ Loperamide HCl 2 MG Q6H PRN PRN PO Zolpidem Tartrate 10 MG BEDTIME PRN PRN PO Simethicone 160 MG Q6H PRN PRN PO Hydrocodone Bitart/Acetaminophen 1 TAB Q6H PRN P RN PO Hydralazine HCl 10 MG Q6H PRN PRN IV Isosorbide Mononitrate 40 MG BID PO (CKD) Magnesium 100 ML ASDIR PRN IV Magnesium Sulfate 50 ML ASDIR PRN IV Magnesium Sulfate 100 ML ASDIR PRN IV Nifedipine 30 MG Q6H PO Collagenase 1 APPLIC DAILY TOPICAL Aspirin 81 MG DAILY PO (DC) Atorvastatin Calcium 40 MG DAILY PO (DC) Acetaminophen 650 MG Q4H PRN PRN PO (DC) Nutrition assessment: The data set between the solid lines has been im ported from the dietitian's assessment. Any exceptions have been noted under Provider comments. BMI Calculated: 24.6 Nutrition related diagnosis: Overweight Nutrition diagnosis details: BMI 25-29.9 Nutrition problem: INCREASED PROTEIN NEEDS Nutrition etiology: WOUND HEALING Nutrition signs and symptoms: PT W/ MULTIPLE STA GE WOUNDS. Nutrition prescription: -RECOMMEND STEPHANIE NUE CARDIAC DIET (NO RENAL RESTRICTION NEEDS D/T JENNIFER RESOLVED) -NO ENSURE ENLIVE AT THI S TIME D/T PT REFUSED, GOOD APPETITE -RECOMMEND CONTINUE ANGELIA BID T O PROMOTE WOUND HEALING -RD TO F/U PER FNS PROTOCOL Dietitian name: Ester Cabrera RD LD Assessment completed: 08/24/20 Provider comments on imported dietitian assessme nt: Physical Exam General appearance: alert, awake Head/Eyes: atraumatic Cardiovascular: normal heart sounds, regular rat e rhythm Respiratory: aerating well, clear to auscultatio n Abdomen: non-tender, normal bowel sounds, soft Extremities: no clubbing 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, LE weakness Psychiatry: normal affect, normal mood Results Findings/Data: Laboratory Tests 08/25 08/24 0337 1653 Chemistry Sodium (137 - 145 mmol/L) 137 Potassium (3.4 - 5.0 mmol/L) 4.3 Chloride (98 - 107 mmol/L) 106 Carbon Dioxide (22 - 30 mmol/L) 21 L BUN (9 - 20 mg/dL) 29 H Creatinine (0.7 - 1.3 mg/dL) 0.7 Glomerular Filtr Rate (>60) 166 Glucose (74 - 106 mg/dL) 84 POC Glucose (74 - 106 MG/DL) 88 Calcium (8.4 - 10.2 mg/dL) 8.9 Total Bilirubin (0.2 - 1.3 mg/dL) 0.5 Conjugated Bilirubin (0 - 0.3 mg/dL) 0 Unconjugated Bilirubin (0 - 1.1 mg/dL) 0.2 AST (15 - 46 U/L) 28 ALT (0 - 34 U/L) 22 Total Alk Phosphatase (38 - 126 U/L) 97 Total Protein (6.3 - 8.2 g/dL) 7.6 Albumin (3.5 - 5.0 g/dL) 3.8 Laboratory Tests 08/25 0337 Hematology WBC (5.0 - 12.0 x10 3/uL) 5.4 RBC (4.70 - 6.10 x10 6/uL) 2.93 L Hgb (14.0 - 18.0 g/dL) 8.8 L Hct (37.0 - 49.0 %) 27.5 L MCV (80 - 94 fL) 94 MCH (27 - 31 pg) 30.0 MCHC (33 - 37 g/dL) 32.0 L RDW (11.5 - 15.5 %) 17.5 H Plt Count (130 - 400 x10 3/uL) 337 MPV (9.4 - 16.4 fL) 9.2 L Neut % (Auto) (43 - 65 %) 69.2 H Lymph % (Auto) (20.5 - 45.5 %) 19.4 L Citrus % (Auto) (5.5 - 11.7 %) 8.8 Eos % (Auto) (0.9 - 2.9 %) 1.3 Baso % (Auto) (0.2 - 1.0 %) 0.9 Neut # (Auto) (2.2 - 4.8 x10 3/uL) 3.72 Lymph # (Auto) (1.3 - 2.9 x10 3/uL) 1.04 L Citrus # (Auto) (0.3 - 0.8 x10 3/uL) 0.47 Eos # (Auto) (0.0 - 0.2 x10 3/uL) 0.07 Baso # (Auto) (0.0 - 0.1 x10 3/uL) 0.05 Immature Gran % (0.0 - 2.0 %) 0.4 Nucleated RBC % (0 - 1.0 %) 0.0 Results: labs reviewed, vital signs stable Diagnosis, Assessment Plan Problem List/A P: 1. JENNIFER (acute kidney injury) Creatinine stable. nephrology following. 2. Sepsis Continue Zuñiga change every month s/p 10 days of meropenem 3. UTI (urinary tract infection) Urine culture positive for Pseudomonas and Ente robacter s/p 10 days meropenem 4. Bacteremia due to Enterobacter species Continue meropenem Infectious disease following, appreciate input 5. Metabolic encephalopathy Resolved 6. H/O cardiac arrest Patient status post PEA, resolved 7. 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 Discussed with patient rega jonnathaning LP again, but states he still does not want at this time. Continue PT/OT 8. Abnormal MRI of head Could be related to CVA Repeat MRI 07/19/20 showed patchy perive ntricular white matter disease appears improved but not resolved since 06/26/20 and may have related to u nderlying metabolic or toxic disorder and/or vasculitis. 9. Acute systolic heart failure Resolved Cardiology following, appreciate input 10. Acute CVA (cerebrovascular accident) Suspected to be cardioembolic, patient found to have PFO Cardiology performed DOMINIK 08/17 in preparation fo r potential PFO closure. Continue medical management 11. Acute on chronic anemia Patient status post 2 units PRBCs Hemoglobin stable now. 12. Hyperkalemia 4.7 today, given Kayexalate -losartan on hold -monitor BMP daily 13. Hypertensive emergency resolved, treating essential HTN Cardiology on board. 14. Essential hypertension Continue nifedipine, labetalol, Imdur - Imdur uptitrated 15. Aortic dissection History of type B aortic dissection status post thoracic endovascular aortic repair at outside hospital Continue labetalol Manage blood pressure per cardiology 16. Multifocal pneumonia Continue meropenem 17. Acute respiratory failure with hypoxia Resolved, patient extubated prior to downgrade from ICU Now on room air Free Text DxA P Notes Free text DxA P notes: DVT prophylaxis: Heparin Dispo: IRF, RAISSA working on d/c plan. at 1615 RPT #:[id number] END OF REPORT 2020-08-25 14:51:00-00:00 [facility] Hospitalist Progress Note REPORT#:[id number] REPORT STATUS: Signed DATE:08/25/20 TIME: 1451 PATIENT: JORGE GOINS UNIT #: [id number] ROOM/BED: [address] : [birth year] AGE: 35 SEX: M ATTEND: Raphael Davila MD ADM AUTHOR: Marquita Betancur * ALL edits or amendments must be made on the rimidi/computer document * Subjective Chief Complaint: Abd pain improving Review of Systems Constitutional: Denies: generalized weakness. Respiratory: Denies: COATES (dyspnea on exertion), SOB. Cardiovascular: Denies: chest pain, edema. GI: Denies: abdominal pain, constipation, diarrhea, nausea, vomiting. All systems rev neg: except as marked Objective General VS/I O: Vital Signs: Date Time Temp Pulse Resp B/P B/P Pulse O2 O2 F low FiO2 Mean Ox Delivery Rate 08/25 1546 37.1 81 16 132/75 93.8 100 08/25 1231 37.1 81 16 139/88 104.8 99 / 0730 36.9 83 20 126/75 92 100 08/25 0437 37.1 66 19 142/80 101.0 100 Room air 08/24 2326 36.6 89 18 135/77 96.3 100 Room air 03/01 1917 36.7 74 18 147/77 100.6 100 Room air 08/24 1655 36.9 77 18 149/87 107.8 98 Room air PATIENT WEIGHT: Weight (lb): 176 Weight (oz): 9.44 Weight (kg): 80.100 Medications: Active Meds + DC'd Last 24 Hrs Aspirin 81 MG DAILY PO Atorvastatin Calcium 40 MG DAILY PO Acetaminophen 650 MG Q4H PRN PRN PO Cyclobenzaprine HCl 10 MG BID PRN PRN PO Cyclobenzaprine HCl 5 MG BID PRN PRN PO (DC) Heparin Sodium (Porcine) 5,000 UNIT Q12HR SUBQ Loperamide HCl 2 MG Q6H PRN PRN PO Zolpidem Tartrate 10 MG BEDTIME PRN PRN PO Simethicone 160 MG Q6H PRN PRN PO Hydrocodone Bitart/Acetaminophen 1 TAB Q6H PRN P RN PO Hydralazine HCl 10 MG Q6H PRN PRN IV Isosorbide Mononitrate 40 MG BID PO (CKD) Magnesium 100 ML ASDIR PRN IV Magnesium Sulfate 50 ML ASDIR PRN IV Magnesium Sulfate 100 ML ASDIR PRN IV Nifedipine 30 MG Q6H PO Collagenase 1 APPLIC DAILY TOPICAL Aspirin 81 MG DAILY PO (DC) Atorvastatin Calcium 40 MG DAILY PO (DC) Acetaminophen 650 MG Q4H PRN PRN PO (DC) Nutrition assessment: The data set between the solid lines has been im ported from the dietitian's assessment. Any exceptions have been noted under Provider comments. BMI Calculated: 24.6 Nutrition related diagnosis: Overweight Nutrition diagnosis details: BMI 25-29.9 Nutrition problem: INCREASED PROTEIN NEEDS Nutrition etiology: WOUND HEALING Nutrition signs and symptoms: PT W/ MULTIPLE STA GE WOUNDS. Nutrition prescription: -RECOMMEND STEPHANIE NUE CARDIAC DIET (NO RENAL RESTRICTION NEEDS D/T JENNIFER RESOLVED) -NO ENSURE ENLIVE AT THI S TIME D/T PT REFUSED, GOOD APPETITE -RECOMMEND CONTINUE ANGELIA BID T O PROMOTE WOUND HEALING -RD TO F/U PER FNS PROTOCOL Dietitian name: Ester Cabrera RD LD Assessment completed: 08/24/20 Provider comments on imported dietitian assessme nt: Physical Exam General appearance: alert, awake Head/Eyes: atraumatic Cardiovascular: normal heart sounds, regular rat e rhythm Respiratory: aerating well, clear to auscultatio n Abdomen: non-tender, normal bowel sounds, soft Extremities: no clubbing 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, LE weakness Psychiatry: normal affect, normal mood Results Findings/Data: Laboratory Tests 08/25 1653 Chemistry Sodium (137 - 145 mmol/L) 137 Potassium (3.4 - 5.0 mmol/L) 4.3 Chloride (98 - 107 mmol/L) 106 Carbon Dioxide (22 - 30 mmol/L) 21 L BUN (9 - 20 mg/dL) 29 H Creatinine (0.7 - 1.3 mg/dL) 0.7 Glomerular Filtr Rate (>60) 166 Glucose (74 - 106 mg/dL) 84 POC Glucose (74 - 106 MG/DL) 88 Calcium (8.4 - 10.2 mg/dL) 8.9 Total Bilirubin (0.2 - 1.3 mg/dL) 0.5 Conjugated Bilirubin (0 - 0.3 mg/dL) 0 Unconjugated Bilirubin (0 - 1.1 mg/dL) 0.2 AST (15 - 46 U/L) 28 ALT (0 - 34 U/L) 22 Total Alk Phosphatase (38 - 126 U/L) 97 Total Protein (6.3 - 8.2 g/dL) 7.6 Albumin (3.5 - 5.0 g/dL) 3.8 Laboratory Tests 08/25 336 Hematology WBC (5.0 - 12.0 x10 3/uL) 5.4 RBC (4.70 - 6.10 x10 6/uL) 2.93 L Hgb (14.0 - 18.0 g/dL) 8.8 L Hct (37.0 - 49.0 %) 27.5 L MCV (80 - 94 fL) 94 MCH (27 - 31 pg) 30.0 MCHC (33 - 37 g/dL) 32.0 L RDW (11.5 - 15.5 %) 17.5 H Plt Count (130 - 400 x10 3/uL) 337 MPV (9.4 - 16.4 fL) 9.2 L Neut % (Auto) (43 - 65 %) 69.2 H Lymph % (Auto) (20.5 - 45.5 %) 19.4 L Citrus % (Auto) (5.5 - 11.7 %) 8.8 Eos % (Auto) (0.9 - 2.9 %) 1.3 Baso % (Auto) (0.2 - 1.0 %) 0.9 Neut # (Auto) (2.2 - 4.8 x10 3/uL) 3.72 Lymph # (Auto) (1.3 - 2.9 x10 3/uL) 1.04 L Citrus # (Auto) (0.3 - 0.8 x10 3/uL) 0.47 Eos # (Auto) (0.0 - 0.2 x10 3/uL) 0.07 Baso # (Auto) (0.0 - 0.1 x10 3/uL) 0.05 Immature Gran % (0.0 - 2.0 %) 0.4 Nucleated RBC % (0 - 1.0 %) 0.0 Results: labs reviewed, vital signs stable Diagnosis, Assessment Plan Problem List/A P: 1. JENNIFER (acute kidney injury) Creatinine stable. nephrology following. 2. Sepsis Continue Zuñiga change every month s/p 10 days of meropenem 3. UTI (urinary tract infection) Urine culture positive for Pseudomonas and Ente robacter s/p 10 days meropenem 4. Bacteremia due to Enterobacter species Continue meropenem Infectious disease following, appreciate input 5. Metabolic encephalopathy Resolved 6. H/O cardiac arrest Patient status post PEA, resolved 7. 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 Discussed with patient rega rding LP again, but states he still does not want at this time. Continue PT/OT 8. Abnormal MRI of head Could be related to CVA Repeat MRI 07/19/20 showed patchy perive ntricular white matter disease appears improved but not resolved since 06/26/20 and may have related to u nderlying metabolic or toxic disorder and/or vasculitis. 9. Acute systolic heart failure Resolved Cardiology following, appreciate input 10. Acute CVA (cerebrovascular accident) Suspected to be cardioembolic, patient found to have PFO Cardiology performed DOMINIK 08/17 in preparation fo r potential PFO closure. Continue medical management 11. Acute on chronic anemia Patient status post 2 units PRBCs Hemoglobin stable now. 12. Hyperkalemia 4.7 today, given Kayexalate -losartan on hold -monitor BMP daily 13. Hypertensive emergency resolved, treating essential HTN Cardiology on board. 14. Essential hypertension Continue nifedipine, labetalol, Imdur - Imdur uptitrated 15. Aortic dissection History of type B aortic dissection status post thoracic endovascular aortic repair at outside hospital Continue labetalol Manage blood pressure per cardiology 16. Multifocal pneumonia Continue meropenem 17. Acute respiratory failure with hypoxia Resolved, patient extubated prior to downgrade from ICU Now on room air Free Text DxA P Notes Free text DxA P notes: DVT prophylaxis: Heparin Dispo: IRF, CM working on d/c plan. at 1615 at 2055 RPT #:[id number] END OF REPORT 2020-08-24 14:01:00-00:00 [facility]) Nephrology Progress Note REPORT#:[id number] REPORT STATUS: Signed DATE:08/24/20 TIME: 1401 PATIENT: JORGE GOINS UNIT #: [id number] ROOM/BED: [address] : 86 AGE: 35 SEX: M ATTEND: Raphael Davila MD ADM AUTHOR: Stevie Andersen R2 * ALL edits or amendments must be made on the el ectronic/computer document * Subjective Chief Complaint: Htn emergency, ams HPI: NO EVENTS, AWAKE Review of Systems All systems rev neg: except as marked Objective General VS/I O: Vital Signs: Date Time Temp Pulse Resp B/P B/P Pulse O2 O2 F low FiO2 Mean Ox Delivery Rate 08/24 1220 37.1 74 16 160/94 115.6 100 Room air 08/24 0752 36.7 85 18 121/65 83.7 100 Room air 08/24 0421 36.6 81 18 135/79 97.6 100 Room air 08/24 0100 36.7 81 14 145/77 99.2 100 Room air 08/23 2011 36.8 82 16 135/85 101.6 100 Room ai r 08/23 1650 37.5 80 20 133/78 96.2 100 Room air 24 hour I O ending at 0700: 08/24 0700 08/23 1900 Intake Total Output Total 1600 Balance -1600 Output, Urine 1600 PATIENT WEIGHT: Weight (lb): 176 Weight (oz): 9.44 Weight (kg): 80.100 Medications Active Meds + DC'd Last 24 Hrs Cyclobenzaprine HCl 5 MG BID PRN PRN PO Heparin Sodium (Porcine) 5,000 UNIT Q12HR SUBQ Loperamide HCl 2 MG Q6H PRN PRN PO Zolpidem Tartrate 10 MG BEDTIME PRN PRN PO Simethicone 160 MG Q6H PRN PRN PO Hydrocodone Bitart/Acetaminophen 1 TAB Q6H PRN P RN PO Hydralazine HCl 10 MG Q6H PRN PRN IV Isosorbide Mononitrate 40 MG BID PO (CKD) Magnesium 100 ML ASDIR PRN IV Magnesium Sulfate 50 ML ASDIR PRN IV Magnesium Sulfate 100 ML ASDIR PRN IV Nifedipine 30 MG Q6H PO Collagenase 1 APPLIC DAILY TOPICAL Aspirin 81 MG DAILY PO Atorvastatin Calcium 40 MG DAILY PO Acetaminophen 650 MG Q4H PRN PRN PO Physical Exam General appearance: alert, awake, oriented ENT: moist mucous membranes Neck: no JVD, no masses or swelling Cardiovascular: normal heart sounds, regular rat e and rhythm Respiratory: aerating well, clear to auscultatio n Abdomen: normal bowel sounds, soft Extremities: no edema Musculoskeletal: decreased ROM 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 Skin: dry Results Findings/Data: Laboratory Tests 08/24 08/24 08/23 1217 0242 1646 Chemistry Sodium (137 - 145 mmol/L) 137 Potassium (3.4 - 5.0 mmol/L) 4.7 Chloride (98 - 107 mmol/L) 104 Carbon Dioxide (22 - 30 mmol/L) 23 BUN (9 - 20 mg/dL) 29 H Creatinine (0.7 - 1.3 mg/dL) 0.7 Glomerular Filtr Rate (>60) 166 Glucose (74 - 106 mg/dL) 77 POC Glucose (74 - 106 MG/DL) 85 97 Calcium (8.4 - 10.2 mg/dL) 9.1 Total Bilirubin (0.2 - 1.3 mg/dL) 0.6 Conjugated Bilirubin (0 - 0.3 mg/dL) 0 Unconjugated Bilirubin (0 - 1.1 mg/dL) 0.5 AST (15 - 46 U/L) 29 ALT (0 - 34 U/L) 24 Total Alk Phosphatase (38 - 126 U/L) 94 Total Protein (6.3 - 8.2 g/dL) 7.3 Albumin (3.5 - 5.0 g/dL) 3.8 Laboratory Tests 08/24 0242 Hematology WBC (5.0 - 12.0 x10 3/uL) 6.3 RBC (4.70 - 6.10 x10 6/uL) 2.77 L Hgb (14.0 - 18.0 g/dL) 8.5 L Hct (37.0 - 49.0 %) 26.6 L MCV (80 - 94 fL) 96 H MCH (27 - 31 pg) 30.7 MCHC (33 - 37 g/dL) 32.0 L RDW (11.5 - 15.5 %) 17.5 H Plt Count (130 - 400 x10 3/uL) 338 MPV (9.4 - 16.4 fL) 9.4 Neut % (Auto) (43 - 65 %) 70.1 H Lymph % (Auto) (20.5 - 45.5 %) 18.7 L Citrus % (Auto) (5.5 - 11.7 %) 9.1 Eos % (Auto) (0.9 - 2.9 %) 1.0 Baso % (Auto) (0.2 - 1.0 %) 0.6 Neut # (Auto) (2.2 - 4.8 x10 3/uL) 4.39 Lymph # (Auto) (1.3 - 2.9 x10 3/uL) 1.17 L Citrus # (Auto) (0.3 - 0.8 x10 3/uL) 0.57 Eos # (Auto) (0.0 - 0.2 x10 3/uL) 0.06 Baso # (Auto) (0.0 - 0.1 x10 3/uL) 0.04 Immature Gran % (0.0 - 2.0 %) 0.5 Nucleated RBC % (0 - 1.0 %) 0.0 Diagnosis, Assessment Plan Hospital course to date: mr goins is a 35yo male with hisoty of AAA and htn who has had a prolonged hospitalization due to PEA a rrest, respiratory failure s/p intubation, multiple embolic strokes, new onset HFrEF and JENNIFER, now do wngraded from ICU given significant recovery. Nephro initially consulted for new onset jennifer. #JENNIFER w/severe metabolic acidosis -resolved -eGFR stable -continue to monitor #enterobacter bacteremia-resolved #psa uti s/p abx #multifocal ischemic strokes #hfref-stable #htn -nifedipine, isosorbide #AAA recs; stable renal-white, dispo per primary Plan discussed with: patient, nurse Attestations Attestation needed: supervising physician (DR MARZENA Bae) at 1403 RPT #:[id number] END OF REPORT 2020-08-24 14:01:00-00:00 [facility]) Nephrology Progress Note REPORT#:[id number] REPORT STATUS: Signed DATE:08/24/20 TIME: 1401 PATIENT: JORGE OGINS UNIT #: [id number] ROOM/BED: [address] : [birth year] AGE: 35 SEX: M ATTEND: Raphael Davila MD ADM AUTHOR: Stevie Andersen R2 * ALL edits or amendments must be made on the el ectronic/computer document * Pineda Andersen 08/24/20 1401: Subjective Chief Complaint: Htn emergency, ams HPI: NO EVENTS, AWAKE Review of Systems All systems rev neg: except as marked Objective General VS/I O: Vital Signs: Date Time Temp Pulse Resp B/P B/P Pulse O2 O2 F low FiO2 Mean Ox Delivery Rate 08/24 1220 37.1 74 16 160/94 115.6 100 Room air 08/24 0752 36.7 85 18 121/65 83.7 100 Room air 08/24 0421 36.6 81 18 135/79 97.6 100 Room air 08/24 0100 36.7 81 14 145/77 99.2 100 Room air 08/23 2011 36.8 82 16 135/85 101.6 100 Room air 08/23 1650 37.5 80 20 133/78 96.2 100 Room air 24 hour I O ending at 0700: 08/24 0700 08/23 1900 Intake Total Output Total 1600 Balance -1600 Output, Urine 1600 PATIENT WEIGHT: Weight (lb): 176 Weight (oz): 9.44 Weight (kg): 80.100 Medications Active Meds + DC'd Last 24 Hrs Cyclobenzaprine HCl 5 MG BID PRN PRN PO Heparin Sodium (Porcine) 5,000 UNIT Q12HR SUBQ Loperamide HCl 2 MG Q6H PRN PRN PO Zolpidem Tartrate 10 MG BEDTIME PRN PRN PO Simethicone 160 MG Q6H PRN PRN PO Hydrocodone Bitart/Acetaminophen 1 TAB Q6H PRN P RN PO Hydralazine HCl 10 MG Q6H PRN PRN IV Isosorbide Mononitrate 40 MG BID PO (CKD) Magnesium 100 ML ASDIR PRN IV Magnesium Sulfate 50 ML ASDIR PRN IV Magnesium Sulfate 100 ML ASDIR PRN IV Nifedipine 30 MG Q6H PO Collagenase 1 APPLIC DAILY TOPICAL Aspirin 81 MG DAILY PO Atorvastatin Calcium 40 MG DAILY PO Acetaminophen 650 MG Q4H PRN PRN PO Physical Exam General appearance: alert, awake, oriented ENT: moist mucous membranes Neck: no JVD, no masses or swelling Cardiovascular: normal heart sounds, regular rat e and rhythm Respiratory: aerating well, clear to auscultatio n Abdomen: normal bowel sounds, soft Extremities: no edema Musculoskeletal: decreased ROM 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 Skin: dry Results Findings/Data: Laboratory Tests 08/24 08/24 08/23 1217 0242 1646 Chemistry Sodium (137 - 145 mmol/L) 137 Potassium (3.4 - 5.0 mmol/L) 4.7 Chloride (98 - 107 mmol/L) 104 Carbon Dioxide (22 - 30 mmol/L) 23 BUN (9 - 20 mg/dL) 29 H Creatinine (0.7 - 1.3 mg/dL) 0.7 Glomerular Filtr Rate (>60) 166 Glucose (74 - 106 mg/dL) 77 POC Glucose (74 - 106 MG/DL) 85 97 Calcium (8.4 - 10.2 mg/dL) 9.1 Total Bilirubin (0.2 - 1.3 mg/dL) 0.6 Conjugated Bilirubin (0 - 0.3 mg/dL) 0 Unconjugated Bilirubin (0 - 1.1 mg/dL) 0.5 AST (15 - 46 U/L) 29 ALT (0 - 34 U/L) 24 Total Alk Phosphatase (38 - 126 U/L) 94 Total Protein (6.3 - 8.2 g/dL) 7.3 Albumin (3.5 - 5.0 g/dL) 3.8 Laboratory Tests 08/24 0242 Hematology WBC (5.0 - 12.0 x10 3/uL) 6.3 RBC (4.70 - 6.10 x10 6/uL) 2.77 L Hgb (14.0 - 18.0 g/dL) 8.5 L Hct (37.0 - 49.0 %) 26.6 L MCV (80 - 94 fL) 96 H MCH (27 - 31 pg) 30.7 MCHC (33 - 37 g/dL) 32.0 L RDW (11.5 - 15.5 %) 17.5 H Plt Count (130 - 400 x10 3/uL) 338 MPV (9.4 - 16.4 fL) 9.4 Neut % (Auto) (43 - 65 %) 70.1 H Lymph % (Auto) (20.5 - 45.5 %) 18.7 L Citrus % (Auto) (5.5 - 11.7 %) 9.1 Eos % (Auto) (0.9 - 2.9 %) 1.0 Baso % (Auto) (0.2 - 1.0 %) 0.6 Neut # (Auto) (2.2 - 4.8 x10 3/uL) 4.39 Lymph # (Auto) (1.3 - 2.9 x10 3/uL) 1.17 L Citrus # (Auto) (0.3 - 0.8 x10 3/uL) 0.57 Eos # (Auto) (0.0 - 0.2 x10 3/uL) 0.06 Baso # (Auto) (0.0 - 0.1 x10 3/uL) 0.04 Immature Gran % (0.0 - 2.0 %) 0.5 Nucleated RBC % (0 - 1.0 %) 0.0 Diagnosis, Assessment Plan Hospital course to date: mr goins is a 35yo male with hisoty of AAA and htn who has had a prolonged hospitalization due to PEA a rrest, respiratory failure s/p intubation, multiple embolic strokes, new onset HFrEF and JENNIFER, now do wngraded from ICU given significant recovery. Nephro initially consulted for new onset jennifer. #JENNIFER w/severe metabolic acidosis -resolved -eGFR stable -continue to monitor #enterobacter bacteremia-resolved #psa uti s/p abx #multifocal ischemic strokes #hfref-stable #htn -nifedipine, isosorbide #AAA recs; stable renal-white, dispo per primary Plan discussed with: patient, nurse Attestations Attestation needed: supervising physician (DR MARZENA Bae) Jojo York 08/24/20 1943: Attestations Attestation needed: teaching physician Physician Attestation Agree w/findings plan: Agree with the findings and plan as documented b y Dr. Garcia at 1403 at 1943 RPT #:[id number] END OF REPORT 2020-08-24 13:41:00-00:[address] [facility] ([facility]) Hospitalist Progress Note REPORT#:[id number] REPORT STATUS: Signed DATE:08/24/20 TIME: 1341 PATIENT: JORGE GOINS UNIT #: [id number] ROOM/BED: 3320-A : 86 AGE: 35 SEX: M ATTEND: Raphael Davila MD ADM AUTHOR: Marquita Betancur * ALL edits or amendments must be made on the rimidi/computer document * Subjective Chief Complaint: Feeling well today Review of Systems Constitutional: Denies: generalized weakness. Respiratory: Denies: COATES (dyspnea on exertion), non productiv e cough, productive cough ( sputum), SOB. Cardiovascular: Denies: chest pain, edema. GI: Denies: abdominal pain, constipation, diarrhea. Neuro: Reports: focal weakness (LE). All systems rev neg: except as marked Objective General VS/I O: Vital Signs: Date Time Temp Pulse Resp B/P B/P Pulse O2 O2 Flow FiO2 Mean Ox Delivery Rate 08/24 1220 37.1 74 16 160/94 115.6 100 Room air 08/24 0752 36.7 85 18 121/65 83.7 100 Room air 08/24 0421 36.6 81 18 135/79 97.6 100 Room air 08/24 0100 36.7 81 14 145/77 99.2 100 Room air 08/23 2011 36.8 82 16 135/85 101.6 100 Room air 08/23 1650 37.5 80 20 133/78 96.2 100 Room air 24 hour I O ending at 0700: 08/24 0700 08/23 1900 Intake Total Output Total 1600 Balance -1600 Output, Urine 1600 PATIENT WEIGHT: Weight (lb): 176 Weight (oz): 9.44 Weight (kg): 80.100 Medications: Active Meds + DC'd Last 24 Hrs Cyclobenzaprine HCl 5 MG BID PRN PRN PO Heparin Sodium (Porcine) 5,000 UNIT Q12HR SUBQ Loperamide HCl 2 MG Q6H PRN PRN PO Zolpidem Tartrate 10 MG BEDTIME PRN PRN PO Simethicone 160 MG Q6H PRN PRN PO Hydrocodone Bitart/Acetaminophen 1 TAB Q6H PRN P RN PO Hydralazine HCl 10 MG Q6H PRN PRN IV Isosorbide Mononitrate 40 MG BID PO (CKD) Magnesium 100 ML ASDIR PRN IV Magnesium Sulfate 50 ML ASDIR PRN IV Magnesium Sulfate 100 ML ASDIR PRN IV Nifedipine 30 MG Q6H PO Collagenase 1 APPLIC DAILY TOPICAL Aspirin 81 MG DAILY PO Atorvastatin Calcium 40 MG DAILY PO Acetaminophen 650 MG Q4H PRN PRN PO Nutrition assessment: The data set between the solid lines has been im ported from the dietitian's assessment. Any exceptions have been noted under Provider comments. BMI Calculated: 24.6 Nutrition related diagnosis: Overweight Nutrition diagnosis details: BMI 25-29.9 Nutrition problem: INCREASED PROTEIN NEEDS Nutrition etiology: WOUND HEALING Nutrition signs and symptoms: PT W/ MULTIPLE STA GE WOUNDS. Nutrition prescription: -RECOMMEND CHANGING DIET TO CARDIAC (NO RENAL RESTRICTION NEEDS D/T JENNIFER RE SOLVED) -RECOMMEND D/C ENSURE ENLIVE D/T PT REFUSED, GOOD APPETITE -RECOMMEND ANGELIA BID TO ND OMOTE WOUND HEALING -RD TO F/U PER FNS PROTOCOL Dietitian name: Ester Cabrera RD LD Assessment completed: 08/18/20 Provider comments on imported dietitian assessme nt: Physical Exam General appearance: alert, awake Head/Eyes: atraumatic Cardiovascular: normal heart sounds, regular rat e rhythm Respiratory: aerating well, clear to auscultatio n Abdomen: non-tender, normal bowel sounds, soft Extremities: no clubbing 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, LE weakness Psychiatry: normal affect, normal mood Results Findings/Data: Laboratory Tests 08/24 08/24 08/23 1217 0242 1646 Chemistry Sodium (137 - 145 mmol/L) 137 Potassium (3.4 - 5.0 mmol/L) 4.7 Chloride (98 - 107 mmol/L) 104 Carbon Dioxide (22 - 30 mmol/L) 23 BUN (9 - 20 mg/dL) 29 H Creatinine (0.7 - 1.3 mg/dL) 0.7 Glomerular Filtr Rate (>60) 166 Glucose (74 - 106 mg/dL) 77 POC Glucose (74 - 106 MG/DL) 85 97 Calcium (8.4 - 10.2 mg/dL) 9.1 Total Bilirubin (0.2 - 1.3 mg/dL) 0.6 Conjugated Bilirubin (0 - 0.3 mg/dL) 0 Unconjugated Bilirubin (0 - 1.1 mg/dL) 0.5 AST (15 - 46 U/L) 29 ALT (0 - 34 U/L) 24 Total Alk Phosphatase (38 - 126 U/L) 94 Total Protein (6.3 - 8.2 g/dL) 7.3 Albumin (3.5 - 5.0 g/dL) 3.8 Laboratory Tests 08/24 0242 Hematology WBC (5.0 - 12.0 x10 3/uL) 6.3 RBC (4.70 - 6.10 x10 6/uL) 2.77 L Hgb (14.0 - 18.0 g/dL) 8.5 L Hct (37.0 - 49.0 %) 26.6 L MCV (80 - 94 fL) 96 H MCH (27 - 31 pg) 30.7 MCHC (33 - 37 g/dL) 32.0 L RDW (11.5 - 15.5 %) 17.5 H Plt Count (130 - 400 x10 3/uL) 338 MPV (9.4 - 16.4 fL) 9.4 Neut % (Auto) (43 - 65 %) 70.1 H Lymph % (Auto) (20.5 - 45.5 %) 18.7 L Citrus % (Auto) (5.5 - 11.7 %) 9.1 Eos % (Auto) (0.9 - 2.9 %) 1.0 Baso % (Auto) (0.2 - 1.0 %) 0.6 Neut # (Auto) (2.2 - 4.8 x10 3/uL) 4.39 Lymph # (Auto) (1.3 - 2.9 x10 3/uL) 1.17 L Citrus # (Auto) (0.3 - 0.8 x10 3/uL) 0.57 Eos # (Auto) (0.0 - 0.2 x10 3/uL) 0.06 Baso # (Auto) (0.0 - 0.1 x10 3/uL) 0.04 Immature Gran % (0.0 - 2.0 %) 0.5 Nucleated RBC % (0 - 1.0 %) 0.0 Results: labs reviewed, vital signs stable Diagnosis, Assessment Plan Problem List/A P: 1. JENNIFER (acute kidney injury) Creatinine stable. nephrology following. 2. Sepsis Continue Zuñiga change every month s/p 10 days of meropenem 3. UTI (urinary tract infection) Urine culture positive for Pseudomonas and Ente robacter s/p 10 days meropenem 4. Bacteremia due to Enterobacter species Continue meropenem Infectious disease following, appreciate input 5. Metabolic encephalopathy Resolved 6. H/O cardiac arrest Patient status post PEA, resolved 7. 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 Discussed with patient rajni de santiagoing LP again, but states he still does not want at this time. Continue PT/OT 8. Abnormal MRI of head Could be related to CVA Repeat MRI 07/19/20 showed patchy perive ntricular white matter disease appears improved but not resolved since 06/26/20 and may have related to u nderlying metabolic or toxic disorder and/or vasculitis. 9. Acute systolic heart failure Resolved Cardiology following, appreciate input 10. Acute CVA (cerebrovascular accident) Suspected to be cardioembolic, patient found to have PFO Cardiology performed DOMINIK 08/17 in preparation fo r potential PFO closure. Continue medical management 11. Acute on chronic anemia Patient status post 2 units PRBCs Hemoglobin stable now. 12. Hyperkalemia 4.7 today, given Kayexalate -losartan on hold -monitor BMP daily 13. Hypertensive emergency resolved, treating essential HTN Cardiology on board. 14. Essential hypertension Continue nifedipine, labetalol, Imdur - Imdur uptitrated 15. Aortic dissection History of type B aortic dissection status post thoracic endovascular aortic repair at outside hospital Continue labetalol Manage blood pressure per cardiology 16. Multifocal pneumonia Continue meropenem 17. Acute respiratory failure with hypoxia Resolved, patient extubated prior to downgrade from ICU Now on room air Free Text DxA P Notes Free text DxA P notes: DVT prophylaxis: Heparin Dispo: IRF, RAISSA working on d/c plan. at 1343 RPT #:[id number] END OF REPORT 2020-08-24 13:41:00-00:00 [facility] Hospitalist Progress Note REPORT#:[id number] REPORT STATUS: Signed DATE:08/24/20 TIME: 1341 PATIENT: JORGE GOINS UNIT #: [id number] [place] [facility] [place] AGE: 35 SEX: M ATTEND: Raphael Davila MD ADM AUTHOR: Marquita Betancur * ALL edits or amendments must be made on the rimidi/computer document * Subjective Chief Complaint: Feeling well today Review of Systems Constitutional: Denies: generalized weakness. Respiratory: Denies: COATES (dyspnea on exertion), non productiv e cough, productive cough ( sputum), SOB. Cardiovascular: Denies: chest pain, edema. GI: Denies: abdominal pain, constipation, diarrhea. Neuro: Reports: focal weakness (LE). All systems rev neg: except as marked Objective General VS/I O: Vital Signs: Date Time Temp Pulse Resp B/P B/P Pulse O2 O2 F low FiO2 Mean Ox Delivery Rate 08/24 1220 37.1 74 16 160/94 115.6 100 Room air 08/24 0752 36.7 85 18 121/65 83.7 100 Room air 08/24 0421 36.6 81 18 135/79 97.6 100 Room air 08/24 0100 36.7 81 14 145/77 99.2 100 Room air 08/23 2011 36.8 82 16 135/85 101.6 100 Room air 08/23 1650 37.5 80 20 133/78 96.2 100 Room air 24 hour I O ending at 0700: 08/24 0700 08/23 1900 Intake Total Output Total 1600 Balance -1600 Output, Urine 1600 PATIENT WEIGHT: Weight (lb): 176 Weight (oz): 9.44 Weight (kg): 80.100 Medications: Active Meds + DC'd Last 24 Hrs Cyclobenzaprine HCl 5 MG BID PRN PRN PO Heparin Sodium (Porcine) 5,000 UNIT Q12HR SUBQ Loperamide HCl 2 MG Q6H PRN PRN PO Zolpidem Tartrate 10 MG BEDTIME PRN PRN PO Simethicone 160 MG Q6H PRN PRN PO Hydrocodone Bitart/Acetaminophen 1 TAB Q6H PRN P RN PO Hydralazine HCl 10 MG Q6H PRN PRN IV Isosorbide Mononitrate 40 MG BID PO (CKD) Magnesium 100 ML ASDIR PRN IV Magnesium Sulfate 50 ML ASDIR PRN IV Magnesium Sulfate 100 ML ASDIR PRN IV Nifedipine 30 MG Q6H PO Collagenase 1 APPLIC DAILY TOPICAL Aspirin 81 MG DAILY PO Atorvastatin Calcium 40 MG DAILY PO Acetaminophen 650 MG Q4H PRN PRN PO Nutrition assessment: The data set between the solid lines has been im ported from the dietitian's assessment. Any exceptions have been noted under Provider comments. BMI Calculated: 24.6 Nutrition related diagnosis: Overweight Nutrition diagnosis details: BMI 25-29.9 Nutrition problem: INCREASED PROTEIN NEEDS Nutrition etiology: WOUND HEALING Nutrition signs and symptoms: PT W/ MULTIPLE STA GE WOUNDS. Nutrition prescription: -RECOMMEND CHANGING DIET TO CARDIAC (NO RENAL RESTRICTION NEEDS D/T JENNIFER RE SOLVED) -RECOMMEND D/C ENSURE ENLIVE D/T PT REFUSED, GOOD APPETITE -RECOMMEND ANGELIA BID TO ND OMOTE WOUND HEALING -RD TO F/U PER FNS PROTOCOL Dietitian name: Ester Cabrera RD LD Assessment completed: 08/18/20 Provider comments on imported dietitian assessme nt: Physical Exam General appearance: alert, awake Head/Eyes: atraumatic Cardiovascular: normal heart sounds, regular rat e rhythm Respiratory: aerating well, clear to auscultatio n Abdomen: non-tender, normal bowel sounds, soft Extremities: no clubbing 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, LE weakness Psychiatry: normal affect, normal mood Results Findings/Data: Laboratory Tests 08/24 08/24 08/23 1217 0242 1646 Chemistry Sodium (137 - 145 mmol/L) 137 Potassium (3.4 - 5.0 mmol/L) 4.7 Chloride (98 - 107 mmol/L) 104 Carbon Dioxide (22 - 30 mmol/L) 23 BUN (9 - 20 mg/dL) 29 H Creatinine (0.7 - 1.3 mg/dL) 0.7 Glomerular Filtr Rate (>60) 166 Glucose (74 - 106 mg/dL) 77 POC Glucose (74 - 106 MG/DL) 85 97 Calcium (8.4 - 10.2 mg/dL) 9.1 Total Bilirubin (0.2 - 1.3 mg/dL) 0.6 Conjugated Bilirubin (0 - 0.3 mg/dL) 0 Unconjugated Bilirubin (0 - 1.1 mg/dL) 0.5 AST (15 - 46 U/L) 29 ALT (0 - 34 U/L) 24 Total Alk Phosphatase (38 - 126 U/L) 94 Total Protein (6.3 - 8.2 g/dL) 7.3 Albumin (3.5 - 5.0 g/dL) 3.8 Laboratory Tests 08/24 0242 Hematology WBC (5.0 - 12.0 x10 3/uL) 6.3 RBC (4.70 - 6.10 x10 6/uL) 2.77 L Hgb (14.0 - 18.0 g/dL) 8.5 L Hct (37.0 - 49.0 %) 26.6 L MCV (80 - 94 fL) 96 H MCH (27 - 31 pg) 30.7 MCHC (33 - 37 g/dL) 32.0 L RDW (11.5 - 15.5 %) 17.5 H Plt Count (130 - 400 x10 3/uL) 338 MPV (9.4 - 16.4 fL) 9.4 Neut % (Auto) (43 - 65 %) 70.1 H Lymph % (Auto) (20.5 - 45.5 %) 18.7 L Citrus % (Auto) (5.5 - 11.7 %) 9.1 Eos % (Auto) (0.9 - 2.9 %) 1.0 Baso % (Auto) (0.2 - 1.0 %) 0.6 Neut # (Auto) (2.2 - 4.8 x10 3/uL) 4.39 Lymph # (Auto) (1.3 - 2.9 x10 3/uL) 1.17 L Citrus # (Auto) (0.3 - 0.8 x10 3/uL) 0.57 Eos # (Auto) (0.0 - 0.2 x10 3/uL) 0.06 Baso # (Auto) (0.0 - 0.1 x10 3/uL) 0.04 Immature Gran % (0.0 - 2.0 %) 0.5 Nucleated RBC % (0 - 1.0 %) 0.0 Results: labs reviewed, vital signs stable Diagnosis, Assessment Plan Problem List/A P: 1. JENNIFER (acute kidney injury) Creatinine stable. nephrology following. 2. Sepsis Continue Zuñiga change every month s/p 10 days of meropenem 3. UTI (urinary tract infection) Urine culture positive for Pseudomonas and Ente robacter s/p 10 days meropenem 4. Bacteremia due to Enterobacter species Continue meropenem Infectious disease following, appreciate input 5. Metabolic encephalopathy Resolved 6. H/O cardiac arrest Patient status post PEA, resolved 7. 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 Discussed with patient rega rding LP again, but states he still does not want at this time. Continue PT/OT 8. Abnormal MRI of head Could be related to CVA Repeat MRI 07/19/20 showed patchy perive ntricular white matter disease appears improved but not resolved since 06/26/20 and may have related to u nderlying metabolic or toxic disorder and/or vasculitis. 9. Acute systolic heart failure Resolved Cardiology following, appreciate input 10. Acute CVA (cerebrovascular accident) Suspected to be cardioembolic, patient found to have PFO Cardiology performed DOMINIK 08/17 in preparation fo r potential PFO closure. Continue medical management 11. Acute on chronic anemia Patient status post 2 units PRBCs Hemoglobin stable now. 12. Hyperkalemia 4.7 today, given Kayexalate -losartan on hold -monitor BMP daily 13. Hypertensive emergency resolved, treating essential HTN Cardiology on board. 14. Essential hypertension Continue nifedipine, labetalol, Imdur - Imdur uptitrated 15. Aortic dissection History of type B aortic dissection status post thoracic endovascular aortic repair at outside hospital Continue labetalol Manage blood pressure per cardiology 16. Multifocal pneumonia Continue meropenem 17. Acute respiratory failure with hypoxia Resolved, patient extubated prior to downgrade from ICU Now on room air Free Text DxA P Notes Free text DxA P notes: DVT prophylaxis: Heparin Dispo: RAISSA VILLA working on d/c plan. at 1343 Electronically Signed by Raphael Davila MD on at 1608 RPT #:[id number] END OF REPORT 2020-08-23 20:37:00-00:[address] [facility] ([facility]) Nephrology Progress Note REPORT#:[id number] REPORT STATUS: Signed DATE:08/23/20 TIME: 2036 PATIENT: JORGE GOINS UNIT #: [id number] ROOM/BED: [address] : 86 AGE: 35 SEX: M ATTEND: Raphael Davila MD ADM AUTHOR: Jojo York MD * ALL edits or amendments must be made on the rimidi/computer document * Subjective Chief Complaint: Htn emergency, ams Comments: events noted Objective General VS/I O: Vital Signs: Date Time Temp Pulse Resp B/P B/P Pulse O2 O2 F low FiO2 Mean Ox Delivery Rate 08/23 2011 98.2 82 16 135/85 101.6 100 Room air 08/23 1650 99.5 80 20 133/78 96.2 100 Room air 08/23 1126 98.2 82 19 147/79 102.0 100 Room air 08/23 0752 98.1 76 20 137/71 93.3 100 Room air 08/23 0329 98.2 81 16 136/74 95.1 98 Room air 08/22 2303 98.1 82 20 147/79 101.8 100 Room air 24 hour I O ending at 0700: 08/23 0700 08/22 1900 Intake Total 650 Output Total 2550 Balance -1900 Intake, Oral 650 Output, Urine 2550 PATIENT WEIGHT: Weight (lb): 176 Weight (oz): 9.44 Weight (kg): 80.100 Medications Active Meds + DC'd Last 24 Hrs Cyclobenzaprine HCl 5 MG BID PRN PRN PO Sodium Polystyrene Sulfonate 15 GM ONCE ONE PO ( DC) Heparin Sodium (Porcine) 5,000 UNIT Q12HR SUBQ Loperamide HCl 2 MG Q6H PRN PRN PO Zolpidem Tartrate 10 MG BEDTIME PRN PRN PO Simethicone 160 MG Q6H PRN PRN PO Hydrocodone Bitart/Acetaminophen 1 TAB Q6H PRN P RN PO Hydralazine HCl 10 MG Q6H PRN PRN IV Isosorbide Mononitrate 40 MG BID PO (CKD) Magnesium 100 ML ASDIR PRN IV Magnesium Sulfate 50 ML ASDIR PRN IV Magnesium Sulfate 100 ML ASDIR PRN IV Nifedipine 30 MG Q6H PO Collagenase 1 APPLIC DAILY TOPICAL Aspirin 81 MG DAILY PO Atorvastatin Calcium 40 MG DAILY PO Acetaminophen 650 MG Q4H PRN PRN PO Dextrose/Water 25 ML ASDIR PRN IV (DC) Glucagon 1 MG ASDIR PRN IM (DC) Insulin Human Lispro LOW DOSE SCALE ASDIR SUBQ (DC) Physical Exam General appearance: no acute distress ENT: moist mucous membranes Neck: no JVD, no masses or swelling Cardiovascular: normal heart sounds, regular rat e and rhythm Respiratory: aerating well, clear to auscultatio n Abdomen: normal bowel sounds, soft Extremities: no edema Musculoskeletal: decreased ROM 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 Skin: dry Results Findings/Data: Laboratory Tests 08/23 08/23 08/23 08/23 1646 1122 0328 0215 Chemistry Sodium (137 - 145 mmol/L) 135 L Potassium (3.4 - 5.0 mmol/L) 5.1 H Chloride (98 - 107 mmol/L) 102 Carbon Dioxide (22 - 30 mmol/L) 21 L BUN (9 - 20 mg/dL) 26 H Creatinine (0.7 - 1.3 mg/dL) 0.7 Glomerular Filtr Rate (>60) 166 Glucose (74 - 106 mg/dL) 69 L POC Glucose (74 - 106 MG/DL) 97 102 83 Calcium (8.4 - 10.2 mg/dL) 9.1 Total Bilirubin (0.2 - 1.3 mg/dL) 0.6 Conjugated Bilirubin (0 - 0.3 mg/dL) 0 Unconjugated Bilirubin (0 - 1.1 mg/dL) 0.2 AST (15 - 46 U/L) 28 ALT (0 - 34 U/L) 27 Total Alk Phosphatase (38 - 126 U/L) 113 Total Protein (6.3 - 8.2 g/dL) 8.0 Albumin (3.5 - 5.0 g/dL) 4.0 Laboratory Tests 08/23 0215 Hematology WBC (5.0 - 12.0 x10 3/uL) 6.4 RBC (4.70 - 6.10 x10 6/uL) 2.86 L Hgb (14.0 - 18.0 g/dL) 8.5 L Hct (37.0 - 49.0 %) 27.4 L MCV (80 - 94 fL) 96 H MCH (27 - 31 pg) 29.7 MCHC (33 - 37 g/dL) 31.0 L RDW (11.5 - 15.5 %) 17.6 H Plt Count (130 - 400 x10 3/uL) 351 MPV (9.4 - 16.4 fL) 9.4 Neut % (Auto) (43 - 65 %) 71.6 H Lymph % (Auto) (20.5 - 45.5 %) 17.4 L Citrus % (Auto) (5.5 - 11.7 %) 8.1 Eos % (Auto) (0.9 - 2.9 %) 1.2 Baso % (Auto) (0.2 - 1.0 %) 0.8 Neut # (Auto) (2.2 - 4.8 x10 3/uL) 4.59 Lymph # (Auto) (1.3 - 2.9 x10 3/uL) 1.12 L Citrus # (Auto) (0.3 - 0.8 x10 3/uL) 0.52 Eos # (Auto) (0.0 - 0.2 x10 3/uL) 0.08 Baso # (Auto) (0.0 - 0.1 x10 3/uL) 0.05 Immature Gran % (0.0 - 2.0 %) 0.9 Nucleated RBC % (0 - 1.0 %) 0.0 Diagnosis, Assessment Plan Hospital course to date: mr goins is a 35yo male with hisoty of AAA and htn who has had a prolonged hospitalization due to PEA a rrest, respiratory failure s/p intubation, multiple embolic strokes, new onset HFrEF and JENNIFER, now do wngraded from ICU given significant recovery. Nephro initially consulted for new onset jennifer. #JENNIFER w/severe metabolic acidosis -resolved -eGFR stable -continue to monitor k is high- but is 2+ hemolysed #enterobacter bacteremia-resolved #psa uti s/p abx #multifocal ischemic strokes #hfref-stable #htn -nifedipine, isosorbide #AAA recs; stable renal-white, dispo per primary at 2038 RPT #:[id number] END OF REPORT 2020-08-23 13:18:00-00:00 [facility] Hospitalist Progress Note REPORT#:[id number] REPORT STATUS: Signed DATE:08/23/20 TIME: 1318 PATIENT: JORGE GOINS UNIT #: [id number] ROOM/BED: [address] : 86 AGE: 35 SEX: M ATTEND: Raphael Davila MD ADM AUTHOR: Marquita Betancur * ALL edits or amendments must be made on the rimidi/computer document * Subjective Chief Complaint: Feeling well today Review of Systems Constitutional: Denies: generalized weakness. Respiratory: Denies: COATES (dyspnea on exertion), non productiv e cough, productive cough ( sputum), SOB. Cardiovascular: Denies: chest pain, edema. GI: Denies: abdominal pain, constipation, diarrhea, nausea, vomiting. Neuro: Reports: focal weakness (BLE ). All systems rev neg: except as marked Objective General VS/I O: Vital Signs: Date Time Temp Pulse Resp B/P B/P Pulse O2 O2 F low FiO2 Mean Ox Delivery Rate 08/23 1126 36.8 82 19 147/79 102.0 100 Room air 08/23 0752 36.7 76 20 137/71 93.3 100 Room air 08/23 0329 36.8 81 16 136/74 95.1 98 Room air 08/22 2303 36.7 82 20 147/79 101.8 100 Room air 08/228 36.8 89 18 139/67 91.2 100 Room air 08/22 1634 36.7 82 16 151/79 103.1 100 Room r 24 hour I O ending at 0700: 08/23 0700 08/22 1900 Intake Total 650 Output Total 2550 Balance -1900 Intake, Oral 650 Output, Urine 2550 PATIENT WEIGHT: Weight (lb): 176 Weight (oz): 9.44 Weight (kg): 80.100 Medications: Active Meds + DC'd Last 24 Hrs Sodium Polystyrene Sulfonate 15 GM ONCE ONE PO ( DC) Heparin Sodium (Porcine) 5,000 UNIT Q12HR SUBQ Loperamide HCl 2 MG Q6H PRN PRN PO Zolpidem Tartrate 10 MG BEDTIME PRN PRN PO Simethicone 160 MG Q6H PRN PRN PO Hydrocodone Bitart/Acetaminophen 1 TAB Q6H PRN P RN PO Hydralazine HCl 10 MG Q6H PRN PRN IV Isosorbide Mononitrate 40 MG BID PO (CKD) Magnesium 100 ML ASDIR PRN IV Magnesium Sulfate 50 ML ASDIR PRN IV Magnesium Sulfate 100 ML ASDIR PRN IV Nifedipine 30 MG Q6H PO Collagenase 1 APPLIC DAILY TOPICAL Aspirin 81 MG DAILY PO Atorvastatin Calcium 40 MG DAILY PO Acetaminophen 650 MG Q4H PRN PRN PO Dextrose/Water 25 ML ASDIR PRN IV (DC) Glucagon 1 MG ASDIR PRN IM (DC) Insulin Human Lispro LOW DOSE SCALE ASDIR SUBQ (DC) Nutrition assessment: The data set between the solid lines has been im ported from the dietitian's assessment. Any exceptions have been noted under Provider comments. BMI Calculated: 24.6 Nutrition related diagnosis: Overweight Nutrition diagnosis details: BMI 25-29.9 Nutrition problem: INCREASED PROTEIN NEEDS Nutrition etiology: WOUND HEALING Nutrition signs and symptoms: PT W/ MULTIPLE STA GE WOUNDS. Nutrition prescription: -RECOMMEND CHANGING DIET TO CARDIAC (NO RENAL RESTRICTION NEEDS D/T JENNIFER RE SOLVED) -RECOMMEND D/C ENSURE ENLIVE D/T PT REFUSED, GOOD APPETITE -RECOMMEND ANGELIA BID TO ND OMOTE WOUND HEALING -RD TO F/U PER FNS PROTOCOL Dietitian name: Ester Cabrera RD LD Assessment completed: 08/18/20 Provider comments on imported dietitian assessme nt: Physical Exam General appearance: alert, awake Head/Eyes: atraumatic Cardiovascular: normal heart sounds, regular rat e rhythm Respiratory: aerating well, clear to auscultatio n Abdomen: non-tender, normal bowel sounds, soft Extremities: no clubbing 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, LE weakness Psychiatry: normal affect, normal mood Results Findings/Data: Laboratory Tests 08/23 08/23 08/23 1122 0328 0215 Chemistry Sodium (137 - 145 mmol/L) 135 L Potassium (3.4 - 5.0 mmol/L) 5.1 H Chloride (98 - 107 mmol/L) 102 Carbon Dioxide (22 - 30 mmol/L) 21 L BUN (9 - 20 mg/dL) 26 H Creatinine (0.7 - 1.3 mg/dL) 0.7 Glomerular Filtr Rate (>60) 166 Glucose (74 - 106 mg/dL) 69 L POC Glucose (74 - 106 MG/DL) 102 83 Calcium (8.4 - 10.2 mg/dL) 9.1 Total Bilirubin (0.2 - 1.3 mg/dL) 0.6 Conjugated Bilirubin (0 - 0.3 mg/dL) 0 Unconjugated Bilirubin (0 - 1.1 mg/dL) 0.2 AST (15 - 46 U/L) 28 ALT (0 - 34 U/L) 27 Total Alk Phosphatase (38 - 126 U/L) 113 Total Protein (6.3 - 8.2 g/dL) 8.0 Albumin (3.5 - 5.0 g/dL) 4.0 Laboratory Tests 08/23 0215 Hematology WBC (5.0 - 12.0 x10 3/uL) 6.4 RBC (4.70 - 6.10 x10 6/uL) 2.86 L Hgb (14.0 - 18.0 g/dL) 8.5 L Hct (37.0 - 49.0 %) 27.4 L MCV (80 - 94 fL) 96 H MCH (27 - 31 pg) 29.7 MCHC (33 - 37 g/dL) 31.0 L RDW (11.5 - 15.5 %) 17.6 H Plt Count (130 - 400 x10 3/uL) 351 MPV (9.4 - 16.4 fL) 9.4 Neut % (Auto) (43 - 65 %) 71.6 H Lymph % (Auto) (20.5 - 45.5 %) 17.4 L Citrus % (Auto) (5.5 - 11.7 %) 8.1 Eos % (Auto) (0.9 - 2.9 %) 1.2 Baso % (Auto) (0.2 - 1.0 %) 0.8 Neut # (Auto) (2.2 - 4.8 x10 3/uL) 4.59 Lymph # (Auto) (1.3 - 2.9 x10 3/uL) 1.12 L Citrus # (Auto) (0.3 - 0.8 x10 3/uL) 0.52 Eos # (Auto) (0.0 - 0.2 x10 3/uL) 0.08 Baso # (Auto) (0.0 - 0.1 x10 3/uL) 0.05 Immature Gran % (0.0 - 2.0 %) 0.9 Nucleated RBC % (0 - 1.0 %) 0.0 Results: labs reviewed, vital signs stable Diagnosis, Assessment Plan Problem List/A P: 1. JENNIFER (acute kidney injury) Creatinine stable. nephrology following. 2. Sepsis Continue Zuñiga change every month s/p 10 days of meropenem 3. UTI (urinary tract infection) Urine culture positive for Pseudomonas and Ente robacter s/p 10 days meropenem 4. Bacteremia due to Enterobacter species Continue meropenem Infectious disease following, appreciate input 5. Metabolic encephalopathy Resolved 6. H/O cardiac arrest Patient status post PEA, resolved 7. 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 Discussed with patient rega jonnathaning LP again, but states he still does not want at this time. Continue PT/OT 8. Abnormal MRI of head Could be related to CVA Repeat MRI 07/19/20 showed patchy perive ntricular white matter disease appears improved but not resolved since 06/26/20 and may have related to u nderlying metabolic or toxic disorder and/or vasculitis. 9. Acute systolic heart failure Resolved Cardiology following, appreciate input 10. Acute CVA (cerebrovascular accident) Suspected to be cardioembolic, patient found to have PFO Cardiology performed DOMINIK 08/17 in preparation fo r potential PFO closure. Continue medical management 11. Acute on chronic anemia Patient status post 2 units PRBCs Hemoglobin stable now. 12. Hyperkalemia 5.1 today, given Kayexalate -losartan on hold -monitor BMP daily 13. Hypertensive emergency resolved, treating essential HTN Cardiology on board. 14. Essential hypertension Continue nifedipine, labetalol, Imdur - Imdur uptitrated 15. Aortic dissection History of type B aortic dissection status post thoracic endovascular aortic repair at outside hospital Continue labetalol Manage blood pressure per cardiology 16. Multifocal pneumonia Continue meropenem 17. Acute respiratory failure with hypoxia Resolved, patient extubated prior to downgrade from ICU Now on room air Free Text DxA P Notes Free text DxA P notes: DVT prophylaxis: Heparin Dispo: IRF, CM working on d/c plan. Complicated home situation, searching for personal jail. at 1321 RPT #:[id number] END OF REPORT 2020-08-23 13:[facility]00 [facility] Progress Note REPORT#:[id number] REPORT STATUS: Signed DATE:08/23/20 TIME: 1318 PATIENT: JORGE GOINS UNIT #: [id number] ROOM/BED: [address] : [birth year] AGE: 35 SEX: M ATTEND: Raphael Davila MD ADM AUTHOR: Marquita Betancur * ALL edits or amendments must be made on the el [employer]/computer document * Subjective Chief Complaint: Feeling well today Review of Systems Constitutional: Denies: generalized weakness. Respiratory: Denies: COATES (dyspnea on exertion), non productiv e cough, productive cough ( sputum), SOB. Cardiovascular: Denies: chest pain, edema. GI: Denies: abdominal pain, constipation, diarrhea, nausea, vomiting. Neuro: Reports: focal weakness (BLE ). All systems rev neg: except as marked Objective General VS/I O: Vital Signs: Date Time Temp Pulse Resp B/P B/P Pulse O2 O2 F low FiO2 Mean Ox Delivery Rate 08/23 1126 36.8 82 19 147/79 102.0 100 Room air 08/23 0752 36.7 76 20 137/71 93.3 100 Room air 08/23 0329 36.8 81 16 136/74 95.1 98 Room air 08/22 2303 36.7 82 20 147/79 101.8 100 Room air 08/22 2028 36.8 89 18 139/67 91.2 100 Room air 08/22 1634 36.7 82 16 151/79 103.1 100 Room air 24 hour I O ending at 0700: 08/23 0700 08/22 1900 Intake Total 650 Output Total 2550 Balance -1900 Intake, Oral 650 Output, Urine 2550 PATIENT WEIGHT: Weight (lb): 176 Weight (oz): 9.44 Weight (kg): 80.100 Medications: Active Meds + DC'd Last 24 Hrs Sodium Polystyrene Sulfonate 15 GM ONCE ONE PO ( DC) Heparin Sodium (Porcine) 5,000 UNIT Q12HR SUBQ Loperamide HCl 2 MG Q6H PRN PRN PO Zolpidem Tartrate 10 MG BEDTIME PRN PRN PO Simethicone 160 MG Q6H PRN PRN PO Hydrocodone Bitart/Acetaminophen 1 TAB Q6H PRN P RN PO Hydralazine HCl 10 MG Q6H PRN PRN IV Isosorbide Mononitrate 40 MG BID PO (CKD) Magnesium 100 ML ASDIR PRN IV Magnesium Sulfate 50 ML ASDIR PRN IV Magnesium Sulfate 100 ML ASDIR PRN IV Nifedipine 30 MG Q6H PO Collagenase 1 APPLIC DAILY TOPICAL Aspirin 81 MG DAILY PO Atorvastatin Calcium 40 MG DAILY PO Acetaminophen 650 MG Q4H PRN PRN PO Dextrose/Water 25 ML ASDIR PRN IV (DC) Glucagon 1 MG ASDIR PRN IM (DC) Insulin Human Lispro LOW DOSE SCALE ASDIR SUBQ (DC) Nutrition assessment: The data set between the solid lines has been im ported from the dietitian's assessment. Any exceptions have been noted under Provider comments. BMI Calculated: 24.6 Nutrition related diagnosis: Overweight Nutrition diagnosis details: BMI 25-29.9 Nutrition problem: INCREASED PROTEIN NEEDS Nutrition etiology: WOUND HEALING Nutrition signs and symptoms: PT W/ MULTIPLE STA GE WOUNDS. Nutrition prescription: -RECOMMEND CHANGING DIET TO CARDIAC (NO RENAL RESTRICTION NEEDS D/T JENNIFER RE SOLVED) -RECOMMEND D/C ENSURE ENLIVE D/T PT REFUSED, GOOD APPETITE -RECOMMEND ANGELIA BID TO ND OMOTE WOUND HEALING -RD TO F/U PER FNS PROTOCOL Dietitian name: JONNATHAN Fine Assessment completed: 08/18/20 Provider comments on imported dietitian assessme nt: Physical Exam General appearance: alert, awake Head/Eyes: atraumatic Cardiovascular: normal heart sounds, regular rat e rhythm Respiratory: aerating well, clear to auscultatio n Abdomen: non-tender, normal bowel sounds, soft Extremities: no clubbing 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, LE weakness Psychiatry: normal affect, normal mood Results Findings/Data: Laboratory Tests 08/23 08/23 08/23 1122 0328 0215 Chemistry Sodium (137 - 145 mmol/L) 135 L Potassium (3.4 - 5.0 mmol/L) 5.1 H Chloride (98 - 107 mmol/L) 102 Carbon Dioxide (22 - 30 mmol/L) 21 L BUN (9 - 20 mg/dL) 26 H Creatinine (0.7 - 1.3 mg/dL) 0.7 Glomerular Filtr Rate (>60) 166 Glucose (74 - 106 mg/dL) 69 L POC Glucose (74 - 106 MG/DL) 102 83 Calcium (8.4 - 10.2 mg/dL) 9.1 Total Bilirubin (0.2 - 1.3 mg/dL) 0.6 Conjugated Bilirubin (0 - 0.3 mg/dL) 0 Unconjugated Bilirubin (0 - 1.1 mg/dL) 0.2 AST (15 - 46 U/L) 28 ALT (0 - 34 U/L) 27 Total Alk Phosphatase (38 - 126 U/L) 113 Total Protein (6.3 - 8.2 g/dL) 8.0 Albumin (3.5 - 5.0 g/dL) 4.0 Laboratory Tests 08/23 0215 Hematology WBC (5.0 - 12.0 x10 3/uL) 6.4 RBC (4.70 - 6.10 x10 6/uL) 2.86 L Hgb (14.0 - 18.0 g/dL) 8.5 L Hct (37.0 - 49.0 %) 27.4 L MCV (80 - 94 fL) 96 H MCH (27 - 31 pg) 29.7 MCHC (33 - 37 g/dL) 31.0 L RDW (11.5 - 15.5 %) 17.6 H Plt Count (130 - 400 x10 3/uL) 351 MPV (9.4 - 16.4 fL) 9.4 Neut % (Auto) (43 - 65 %) 71.6 H Lymph % (Auto) (20.5 - 45.5 %) 17.4 L Citrus % (Auto) (5.5 - 11.7 %) 8.1 Eos % (Auto) (0.9 - 2.9 %) 1.2 Baso % (Auto) (0.2 - 1.0 %) 0.8 Neut # (Auto) (2.2 - 4.8 x10 3/uL) 4.59 Lymph # (Auto) (1.3 - 2.9 x10 3/uL) 1.12 L Citrus # (Auto) (0.3 - 0.8 x10 3/uL) 0.52 Eos # (Auto) (0.0 - 0.2 x10 3/uL) 0.08 Baso # (Auto) (0.0 - 0.1 x10 3/uL) 0.05 Immature Gran % (0.0 - 2.0 %) 0.9 Nucleated RBC % (0 - 1.0 %) 0.0 Results: labs reviewed, vital signs stable Diagnosis, Assessment Plan Problem List/A P: 1. JENNIFER (acute kidney injury) Creatinine stable. nephrology following. 2. Sepsis Continue Zuñiga change every month s/p 10 days of meropenem 3. UTI (urinary tract infection) Urine culture positive for Pseudomonas and Ente robacter s/p 10 days meropenem 4. Bacteremia due to Enterobacter species Continue meropenem Infectious disease following, appreciate input 5. Metabolic encephalopathy Resolved 6. H/O cardiac arrest Patient status post PEA, resolved 7. 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 Discussed with patient regdiego rding LP again, but states he still does not want at this time. Continue PT/OT 8. Abnormal MRI of head Could be related to CVA Repeat MRI 07/19/20 showed patchy perive ntricular white matter disease appears improved but not resolved since 06/26/20 and may have related to u nderlying metabolic or toxic disorder and/or vasculitis. 9. Acute systolic heart failure Resolved Cardiology following, appreciate input 10. Acute CVA (cerebrovascular accident) Suspected to be cardioembolic, patient found to have PFO Cardiology performed DOMINIK 08/17 in preparation fo r potential PFO closure. Continue medical management 11. Acute on chronic anemia Patient status post 2 units PRBCs Hemoglobin stable now. 12. Hyperkalemia 5.1 today, given Kayexalate -losartan on hold -monitor BMP daily 13. Hypertensive emergency resolved, treating essential HTN Cardiology on board. 14. Essential hypertension Continue nifedipine, labetalol, Imdur - Imdur uptitrated 15. Aortic dissection History of type B aortic dissection status post thoracic endovascular aortic repair at outside hospital Continue labetalol Manage blood pressure per cardiology 16. Multifocal pneumonia Continue meropenem 17. Acute respiratory failure with hypoxia Resolved, patient extubated prior to downgrade from ICU Now on room air Free Text DxA P Notes Free text DxA P notes: DVT prophylaxis: Heparin Dispo: IRF, RAISSA working on d/c plan. Complicated home situation, searching for personal jail. at 1321 Electronically Signed by Raphael Davila MD on at 1614 RPT #:[id number] END OF REPORT 2020-08-22 14:14:00-00:00 [facility] Hospitalist Progress Note REPORT#:[id number] REPORT STATUS: Signed DATE:08/22/20 TIME: 1414 PATIENT: JORGE GOINS UNIT #: [id number] ROOM/BED: [address] : [birth year] AGE: 35 SEX: M ATTEND: Raphael Davila MD ADM AUTHOR: Marquita Betancur * ALL edits or amendments must be made on the [employer] document * Subjective Chief Complaint: Has some mild left back pain Review of Systems Constitutional: Denies: generalized weakness. Respiratory: Denies: COATES (dyspnea on exertion), non productiv e cough, productive cough ( sputum), SOB. Cardiovascular: Denies: chest pain, edema. GI: Denies: abdominal pain, constipation, diarrhea, nausea, vomiting. Musculoskeletal: Other musculoskeletal: Reports: lumbar pain. All systems rev neg: except as marked Objective General VS/I O: Vital Signs: Date Time Temp Pulse Resp B/P B/P Pulse O2 O2 F low FiO2 Mean Ox Delivery Rate 08/22 1135 37.1 75 16 141/74 96.3 100 Room air 08/22 0736 37.1 72 18 140/70 93.2 100 Room air 08/22 0311 36.6 74 16 149/75 99.9 99 Room air 08/21 2338 36.6 65 16 141/79 100.2 100 Room ai r 08/21 2014 37.1 81 16 120/66 83.9 100 08/21 1615 36.8 73 17 152/78 102.8 100 Room air 24 hour I O ending at 0700: 08/22 0700 08/21 1900 Intake Total Output Total 1600 575 Balance -1600 -575 Number 1 Bowel Movements Output, Urine 1600 575 PATIENT WEIGHT: Weight (lb): 176 Weight (oz): 9.44 Weight (kg): 80.100 Medications: Active Meds + DC'd Last 24 Hrs Loperamide HCl 2 MG Q6H PRN PRN PO Zolpidem Tartrate 10 MG BEDTIME PRN PRN PO Simethicone 160 MG Q6H PRN PRN PO Hydrocodone Bitart/Acetaminophen 1 TAB Q6H PRN P RN PO Zolpidem Tartrate 5 MG BEDTIME PRN PRN PO (DC) Hydralazine HCl 10 MG Q6H PRN PRN IV Isosorbide Mononitrate 40 MG BID PO (CKD) Magnesium 100 ML ASDIR PRN IV Magnesium Sulfate 50 ML ASDIR PRN IV Magnesium Sulfate 100 ML ASDIR PRN IV Nifedipine 30 MG Q6H PO Collagenase 1 APPLIC DAILY TOPICAL Aspirin 81 MG DAILY PO Atorvastatin Calcium 40 MG DAILY PO Acetaminophen 650 MG Q4H PRN PRN PO Famotidine 20 MG DAILY PO (DC) Dextrose/Water 25 ML ASDIR PRN IV Glucagon 1 MG ASDIR PRN IM Insulin Human Lispro LOW DOSE SCALE ASDIR SUBQ Nutrition assessment: The data set between the solid lines has been im ported from the dietitian's assessment. Any exceptions have been noted under Provider comments. BMI Calculated: 24.6 Nutrition related diagnosis: Overweight Nutrition diagnosis details: BMI 25-29.9 Nutrition problem: INCREASED PROTEIN NEEDS Nutrition etiology: WOUND HEALING Nutrition signs and symptoms: PT W/ MULTIPLE STA GE WOUNDS. Nutrition prescription: -RECOMMEND CHANGING DIET TO CARDIAC (NO RENAL RESTRICTION NEEDS D/T JENNIFER RE SOLVED) -RECOMMEND D/C ENSURE ENLIVE D/T PT REFUSED, GOOD APPETITE -RECOMMEND ANGELIA BID TO ND OMOTE WOUND HEALING -RD TO F/U PER FNS PROTOCOL Dietitian name: Ester Cabrera RD LD Assessment completed: 08/18/20 Provider comments on imported dietitian assessme nt: Physical Exam General appearance: alert, awake Head/Eyes: atraumatic Cardiovascular: normal heart sounds, regular rat e rhythm Respiratory: aerating well, clear to auscultatio n Abdomen: non-tender, normal bowel sounds, soft Extremities: no clubbing 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, LE weakness Results Findings/Data: Laboratory Tests 08/22 08/22 1219 0417 Chemistry Sodium (137 - 145 mmol/L) 135 L Potassium (3.4 - 5.0 mmol/L) 4.7 6.0 H Chloride (98 - 107 mmol/L) 102 Carbon Dioxide (22 - 30 mmol/L) 21 L BUN (9 - 20 mg/dL) 30 H Creatinine (0.7 - 1.3 mg/dL) 0.7 Glomerular Filtr Rate (>60) 166 Glucose (74 - 106 mg/dL) 93 Calcium (8.4 - 10.2 mg/dL) 9.5 Total Bilirubin (0.2 - 1.3 mg/dL) 1.0 Conjugated Bilirubin (0 - 0.3 mg/dL) 0 Unconjugated Bilirubin (0 - 1.1 mg/dL) 0.5 AST (15 - 46 U/L) 55 H ALT (0 - 34 U/L) 33 Total Alk Phosphatase (38 - 126 U/L) 93 Total Protein (6.3 - 8.2 g/dL) 8.1 Albumin (3.5 - 5.0 g/dL) 4.0 Laboratory Tests 08/22 0417 Hematology WBC (5.0 - 12.0 x10 3/uL) 6.7 RBC (4.70 - 6.10 x10 6/uL) 3.04 L Hgb (14.0 - 18.0 g/dL) 9.1 L Hct (37.0 - 49.0 %) 28.6 L MCV (80 - 94 fL) 94 MCH (27 - 31 pg) 29.9 MCHC (33 - 37 g/dL) 31.8 L RDW (11.5 - 15.5 %) 17.7 H Plt Count (130 - 400 x10 3/uL) 372 MPV (9.4 - 16.4 fL) 9.5 Neut % (Auto) (43 - 65 %) 71.5 H Lymph % (Auto) (20.5 - 45.5 %) 18.1 L Citrus % (Auto) (5.5 - 11.7 %) 7.9 Eos % (Auto) (0.9 - 2.9 %) 0.7 L Baso % (Auto) (0.2 - 1.0 %) 0.9 Neut # (Auto) (2.2 - 4.8 x10 3/uL) 4.81 H Lymph # (Auto) (1.3 - 2.9 x10 3/uL) 1.22 L Citrus # (Auto) (0.3 - 0.8 x10 3/uL) 0.53 Eos # (Auto) (0.0 - 0.2 x10 3/uL) 0.05 Baso # (Auto) (0.0 - 0.1 x10 3/uL) 0.06 Immature Gran % (0.0 - 2.0 %) 0.9 Nucleated RBC % (0 - 1.0 %) 0.0 Results: labs reviewed, vital signs stable Diagnosis, Assessment Plan Problem List/A P: 1. JENNIFER (acute kidney injury) Creatinine stable. nephrology following. 2. Sepsis Continue Zuñiga change every month s/p 10 days of meropenem 3. UTI (urinary tract infection) Urine culture positive for Pseudomonas and Ente robacter s/p 10 days meropenem 4. Bacteremia due to Enterobacter species Continue meropenem Infectious disease following, appreciate input 5. Metabolic encephalopathy Resolved 6. H/O cardiac arrest Patient status post PEA, resolved 7. 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 Discussed with patient rega rding LP again, but states he still does not want at this time. Continue PT/OT 8. Abnormal MRI of head Could be related to CVA Repeat MRI 07/19/20 showed patchy perive ntricular white matter disease appears improved but not resolved since 06/26/20 and may have related to u nderlying metabolic or toxic disorder and/or vasculitis. 9. Acute systolic heart failure Resolved Cardiology following, appreciate input 10. Acute CVA (cerebrovascular accident) Suspected to be cardioembolic, patient found to have PFO Cardiology performed DOMINIK 08/17 in preparation fo r potential PFO closure. Continue medical management 11. Acute on chronic anemia Patient status post 2 units PRBCs Hemoglobin stable now. 12. Hyperkalemia 5.1 today, given lokelma -losartan on hold -monitor BMP daily 13. Hypertensive emergency resolved, treating essential HTN Cardiology on board. 14. Essential hypertension Continue nifedipine, labetalol, Imdur - Imdur uptitrated 15. Aortic dissection History of type B aortic dissection status post thoracic endovascular aortic repair at outside hospital Continue labetalol Manage blood pressure per cardiology 16. Multifocal pneumonia Continue meropenem 17. Acute respiratory failure with hypoxia Resolved, patient extubated prior to downgrade from ICU Now on room air Free Text DxA P Notes Free text DxA P notes: DVT prophylaxis: Heparin Dispo: IRF, CM working on d/c plan. Complicated home situation, searching for personal jail. at 1417 RPT #:[id number] END OF REPORT 2020-08-22 14:14:00-00:00 [facility] Hospitalist Progress Note REPORT#:[id number] REPORT STATUS: Signed DATE:08/22/20 TIME: 1414 PATIENT: JORGE GOINS UNIT #: [id number] ROOM/BED: [address] : [birth year] AGE: 35 SEX: M ATTEND: Raphael Davila MD ADM AUTHOR: Marquita Betancur * ALL edits or amendments must be made on the [employer]/computer document * Subjective Chief Complaint: Has some mild left back pain Review of Systems Constitutional: Denies: generalized weakness. Respiratory: Denies: COATES (dyspnea on exertion), non productiv e cough, productive cough ( sputum), SOB. Cardiovascular: Denies: chest pain, edema. GI: Denies: abdominal pain, constipation, diarrhea, nausea, vomiting. Musculoskeletal: Other musculoskeletal: Reports: lumbar pain. All systems rev neg: except as marked Objective General VS/I O: Vital Signs: Date Time Temp Pulse Resp B/P B/P Pulse O2 O2 F low FiO2 Mean Ox Delivery Rate 08/22 1135 37.1 75 16 141/74 96.3 100 Room air 08/22 0736 37.1 72 18 140/70 93.2 100 Room air 08/22 0311 36.6 74 16 149/75 99.9 99 Room air 08/21 2338 36.6 65 16 141/79 100.2 100 Room air 08/21 2013 37.1 81 16 120/66 83.9 100 08/21 1615 36.8 73 17 152/78 102.8 100 Room air 24 hour I O ending at 0700: 08/22 0700 08/21 1900 Intake Total Output Total 1600 575 Balance -1600 -575 Number 1 Bowel Movements Output, Urine 1600 575 PATIENT WEIGHT: Weight (lb): 176 Weight (oz): 9.44 Weight (kg): 80.100 Medications: Active Meds + DC'd Last 24 Hrs Loperamide HCl 2 MG Q6H PRN PRN PO Zolpidem Tartrate 10 MG BEDTIME PRN PRN PO Simethicone 160 MG Q6H PRN PRN PO Hydrocodone Bitart/Acetaminophen 1 TAB Q6H PRN P RN PO Zolpidem Tartrate 5 MG BEDTIME PRN PRN PO (DC) Hydralazine HCl 10 MG Q6H PRN PRN IV Isosorbide Mononitrate 40 MG BID PO (CKD) Magnesium 100 ML ASDIR PRN IV Magnesium Sulfate 50 ML ASDIR PRN IV Magnesium Sulfate 100 ML ASDIR PRN IV Nifedipine 30 MG Q6H PO Collagenase 1 APPLIC DAILY TOPICAL Aspirin 81 MG DAILY PO Atorvastatin Calcium 40 MG DAILY PO Acetaminophen 650 MG Q4H PRN PRN PO Famotidine 20 MG DAILY PO (DC) Dextrose/Water 25 ML ASDIR PRN IV Glucagon 1 MG ASDIR PRN IM Insulin Human Lispro LOW DOSE SCALE ASDIR SUBQ Nutrition assessment: The data set between the solid lines has been im ported from the dietitian's assessment. Any exceptions have been noted under Provider comments. BMI Calculated: 24.6 Nutrition related diagnosis: Overweight Nutrition diagnosis details: BMI 25-29.9 Nutrition problem: INCREASED PROTEIN NEEDS Nutrition etiology: WOUND HEALING Nutrition signs and symptoms: PT W/ MULTIPLE STA GE WOUNDS. Nutrition prescription: -RECOMMEND CHANGING DIET TO CARDIAC (NO RENAL RESTRICTION NEEDS D/T JENNIFER RE SOLVED) -RECOMMEND D/C ENSURE ENLIVE D/T PT REFUSED, GOOD APPETITE -RECOMMEND ANGELIA BID TO ND OMOTE WOUND HEALING -RD TO F/U PER FNS PROTOCOL Dietitian name: Ester Cabrera RD LD Assessment completed: 08/18/20 Provider comments on imported dietitian assessme nt: Physical Exam General appearance: alert, awake Head/Eyes: atraumatic Cardiovascular: normal heart sounds, regular rat e rhythm Respiratory: aerating well, clear to auscultatio n Abdomen: non-tender, normal bowel sounds, soft Extremities: no clubbing 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, LE weakness Results Findings/Data: Laboratory Tests 08/22 08/22 1219 0417 Chemistry Sodium (137 - 145 mmol/L) 135 L Potassium (3.4 - 5.0 mmol/L) 4.7 6.0 H Chloride (98 - 107 mmol/L) 102 Carbon Dioxide (22 - 30 mmol/L) 21 L BUN (9 - 20 mg/dL) 30 H Creatinine (0.7 - 1.3 mg/dL) 0.7 Glomerular Filtr Rate (>60) 166 Glucose (74 - 106 mg/dL) 93 Calcium (8.4 - 10.2 mg/dL) 9.5 Total Bilirubin (0.2 - 1.3 mg/dL) 1.0 Conjugated Bilirubin (0 - 0.3 mg/dL) 0 Unconjugated Bilirubin (0 - 1.1 mg/dL) 0.5 AST (15 - 46 U/L) 55 H ALT (0 - 34 U/L) 33 Total Alk Phosphatase (38 - 126 U/L) 93 Total Protein (6.3 - 8.2 g/dL) 8.1 Albumin (3.5 - 5.0 g/dL) 4.0 Laboratory Tests 08/22 0417 Hematology WBC (5.0 - 12.0 x10 3/uL) 6.7 RBC (4.70 - 6.10 x10 6/uL) 3.04 L Hgb (14.0 - 18.0 g/dL) 9.1 L Hct (37.0 - 49.0 %) 28.6 L MCV (80 - 94 fL) 94 MCH (27 - 31 pg) 29.9 MCHC (33 - 37 g/dL) 31.8 L RDW (11.5 - 15.5 %) 17.7 H Plt Count (130 - 400 x10 3/uL) 372 MPV (9.4 - 16.4 fL) 9.5 Neut % (Auto) (43 - 65 %) 71.5 H Lymph % (Auto) (20.5 - 45.5 %) 18.1 L Citrus % (Auto) (5.5 - 11.7 %) 7.9 Eos % (Auto) (0.9 - 2.9 %) 0.7 L Baso % (Auto) (0.2 - 1.0 %) 0.9 Neut # (Auto) (2.2 - 4.8 x10 3/uL) 4.81 H Lymph # (Auto) (1.3 - 2.9 x10 3/uL) 1.22 L Citrus # (Auto) (0.3 - 0.8 x10 3/uL) 0.53 Eos # (Auto) (0.0 - 0.2 x10 3/uL) 0.05 Baso # (Auto) (0.0 - 0.1 x10 3/uL) 0.06 Immature Gran % (0.0 - 2.0 %) 0.9 Nucleated RBC % (0 - 1.0 %) 0.0 Results: labs reviewed, vital signs stable Diagnosis, Assessment Plan Problem List/A P: 1. JENNIFER (acute kidney injury) Creatinine stable. nephrology following. 2. Sepsis Continue Zuñiga change every month s/p 10 days of meropenem 3. UTI (urinary tract infection) Urine culture positive for Pseudomonas and Ente robacter s/p 10 days meropenem 4. Bacteremia due to Enterobacter species Continue meropenem Infectious disease following, appreciate input 5. Metabolic encephalopathy Resolved 6. H/O cardiac arrest Patient status post PEA, resolved 7. 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 Discussed with patient rega jonnathaning LP again, but states he still does not want at this time. Continue PT/OT 8. Abnormal MRI of head Could be related to CVA Repeat MRI 1/24/21 showed patchy perive ntricular white matter disease appears improved but not resolved since 06/26/20 and may have related to u nderlying metabolic or toxic disorder and/or vasculitis. 9. Acute systolic heart failure Resolved Cardiology following, appreciate input 10. Acute CVA (cerebrovascular accident) Suspected to be cardioembolic, patient found to have PFO Cardiology performed DOMINIK 08/17 in preparation fo r potential PFO closure. Continue medical management 11. Acute on chronic anemia Patient status post 2 units PRBCs Hemoglobin stable now. 12. Hyperkalemia 5.1 today, given lokelma -losartan on hold -monitor BMP daily 13. Hypertensive emergency resolved, treating essential HTN Cardiology on board. 14. Essential hypertension Continue nifedipine, labetalol, Imdur - Imdur uptitrated 15. Aortic dissection History of type B aortic dissection status post thoracic endovascular aortic repair at outside hospital Continue labetalol Manage blood pressure per cardiology 16. Multifocal pneumonia Continue meropenem 17. Acute respiratory failure with hypoxia Resolved, patient extubated prior to downgrade from ICU Now on room air Free Text DxA P Notes Free text DxA P notes: DVT prophylaxis: Heparin Dispo: IRF, CM working on d/c plan. Complicated home situation, searching for personal jail. at 1417 Electronically Signed by Raphael Davila MD on at 1221 RPT #:[id number] END OF REPORT 2020-08-22 11:51:00-00:00 [facility] Nephrology Progress Note REPORT#:[id number] REPORT STATUS: Signed DATE:08/22/20 TIME: 1151 PATIENT: JORGE GOINS UNIT #: [id number] [address] [birth year] AGE: 35 SEX: M ATTEND: Raphael Davila MD ADM AUTHOR: Jojo York MD * ALL edits or amendments must be made on the el [employer]/computer document * Subjective Chief Complaint: Htn emergency, ams Comments: events noted Objective General VS/I O: Vital Signs: Date Time Temp Pulse Resp B/P B/P Pulse O2 O2 F low FiO2 Mean Ox Delivery Rate 08/22 1135 98.8 75 16 141/74 96.3 100 Room air 08/22 0736 98.8 72 18 140/70 93.2 100 Room air 08/22 0311 97.9 74 16 149/75 99.9 99 Room air 08/21 2338 97.9 65 16 141/79 100.2 100 Room air 08/21 2013 98.8 81 16 120/66 83.9 100 08/21 1615 98.2 73 17 152/78 102.8 100 Room air 24 hour I O ending at 0700: 08/22 0700 08/21 1900 Intake Total Output Total 1600 575 Balance -1600 -575 Number 1 Bowel Movements Output, Urine 1600 575 PATIENT WEIGHT: Weight (lb): 176 Weight (oz): 9.44 Weight (kg): 80.100 Medications Active Meds + DC'd Last 24 Hrs Loperamide HCl 2 MG Q6H PRN PRN PO Zolpidem Tartrate 10 MG BEDTIME PRN PRN PO Simethicone 160 MG Q6H PRN PRN PO Hydrocodone Bitart/Acetaminophen 1 TAB Q6H PRN P RN PO Zolpidem Tartrate 5 MG BEDTIME PRN PRN PO (DC) Hydralazine HCl 10 MG Q6H PRN PRN IV Isosorbide Mononitrate 40 MG BID PO (CKD) Magnesium 100 ML ASDIR PRN IV Magnesium Sulfate 50 ML ASDIR PRN IV Magnesium Sulfate 100 ML ASDIR PRN IV Nifedipine 30 MG Q6H PO Collagenase 1 APPLIC DAILY TOPICAL Aspirin 81 MG DAILY PO Atorvastatin Calcium 40 MG DAILY PO Acetaminophen 650 MG Q4H PRN PRN PO Famotidine 20 MG DAILY PO (DC) Dextrose/Water 25 ML ASDIR PRN IV Glucagon 1 MG ASDIR PRN IM Insulin Human Lispro LOW DOSE SCALE ASDIR SUBQ Physical Exam General appearance: no acute distress ENT: moist mucous membranes Neck: no JVD, no masses or swelling Cardiovascular: normal heart sounds, regular rat e and rhythm Respiratory: aerating well, clear to auscultatio n Abdomen: normal bowel sounds, soft Extremities: no edema Musculoskeletal: decreased ROM 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 Skin: dry Results Findings/Data: Laboratory Tests 02/27 0417 Chemistry Sodium (137 - 145 mmol/L) 135 L Potassium (3.4 - 5.0 mmol/L) 6.0 H Chloride (98 - 107 mmol/L) 102 Carbon Dioxide (22 - 30 mmol/L) 21 L BUN (9 - 20 mg/dL) 30 H Creatinine (0.7 - 1.3 mg/dL) 0.7 Glomerular Filtr Rate (>60) 166 Glucose (74 - 106 mg/dL) 93 Calcium (8.4 - 10.2 mg/dL) 9.5 Total Bilirubin (0.2 - 1.3 mg/dL) 1.0 Conjugated Bilirubin (0 - 0.3 mg/dL) 0 Unconjugated Bilirubin (0 - 1.1 mg/dL) 0.5 AST (15 - 46 U/L) 55 H ALT (0 - 34 U/L) 33 Total Alk Phosphatase (38 - 126 U/L) 93 Total Protein (6.3 - 8.2 g/dL) 8.1 Albumin (3.5 - 5.0 g/dL) 4.0 Laboratory Tests 08/22 416 Hematology WBC (5.0 - 12.0 x10 3/uL) 6.7 RBC (4.70 - 6.10 x10 6/uL) 3.04 L Hgb (14.0 - 18.0 g/dL) 9.1 L Hct (37.0 - 49.0 %) 28.6 L MCV (80 - 94 fL) 94 MCH (27 - 31 pg) 29.9 MCHC (33 - 37 g/dL) 31.8 L RDW (11.5 - 15.5 %) 17.7 H Plt Count (130 - 400 x10 3/uL) 372 MPV (9.4 - 16.4 fL) 9.5 Neut % (Auto) (43 - 65 %) 71.5 H Lymph % (Auto) (20.5 - 45.5 %) 18.1 L Citrus % (Auto) (5.5 - 11.7 %) 7.9 Eos % (Auto) (0.9 - 2.9 %) 0.7 L Baso % (Auto) (0.2 - 1.0 %) 0.9 Neut # (Auto) (2.2 - 4.8 x10 3/uL) 4.81 H Lymph # (Auto) (1.3 - 2.9 x10 3/uL) 1.22 L Citrus # (Auto) (0.3 - 0.8 x10 3/uL) 0.53 Eos # (Auto) (0.0 - 0.2 x10 3/uL) 0.05 Baso # (Auto) (0.0 - 0.1 x10 3/uL) 0.06 Immature Gran % (0.0 - 2.0 %) 0.9 Nucleated RBC % (0 - 1.0 %) 0.0 Diagnosis, Assessment Plan Hospital course to date: mr goins is a 35yo male with hisoty of AAA and htn who has had a prolonged hospitalization due to PEA a rrest, respiratory failure s/p intubation, multiple embolic strokes, new onset HFrEF and JENNIFER, now do wngraded from ICU given significant recovery. Nephro initially consulted for new onset jennifer. #JENNIFER w/severe metabolic acidosis -resolved -eGFR stable -continue to monitor k is high- but is 2+ hemolysed #enterobacter bacteremia-resolved #psa uti s/p abx #multifocal ischemic strokes #hfref-stable #htn -nifedipine, isosorbide #AAA recs; stable renal-white, dispo per primary at 1910 RPT #:[id number] END OF REPORT 2020-08-21 14:50:00-00:00 [facility] Hospitalist Progress Note REPORT#:[id number] REPORT STATUS: Signed DATE:08/21/20 TIME: 1450 PATIENT: JORGE GOINS UNIT #: [id number] ROOM/BED: [address] : 86 AGE: 35 SEX: M ATTEND: Raphael Davila MD ADM AUTHOR: Marquita Betancur * ALL edits or amendments must be made on the el [employer]/computer document * Subjective Chief Complaint: No new c/o Review of Systems Constitutional: Denies: fever, generalized weakness. Respiratory: Denies: COATES (dyspnea on exertion), non productiv e cough, productive cough ( sputum), SOB. Cardiovascular: Denies: chest pain, edema, orthopnea. GI: Denies: abdominal pain, constipation, diarrhea, nausea, vomiting. All systems rev neg: except as marked Objective General VS/I O: Vital Signs: Date Time Temp Pulse Resp B/P B/P Pulse O2 O2 F low FiO2 Mean Ox Delivery Rate 08/21 1128 36.6 82 18 127/65 85.7 100 08/21 0736 37.1 63 18 144/76 98.9 100 08/21 0555 36.7 78 18 137/65 89.4 100 Room air 08/21 0018 36.6 89 17 117/68 84.0 100 Room air 08/20 2042 37.0 72 18 153/78 102.9 100 Room air 08/20 1836 36.8 70 16 155/78 103.7 100 Room air 24 hour I O ending at 0700: 08/21 0700 08/20 1900 Intake Total 480 1100 Output Total 1500 650 Balance -1020 450 Intake, Oral 480 1100 Output, Urine 1500 650 PATIENT WEIGHT: Weight (lb): 176 Weight (oz): 9.44 Weight (kg): 80.100 Medications: Active Meds + DC'd Last 24 Hrs Hydrocodone Bitart/Acetaminophen 1 TAB Q6H PRN P RN PO Zolpidem Tartrate 5 MG BEDTIME PRN PRN PO Hydralazine HCl 10 MG Q6H PRN PRN IV Isosorbide Mononitrate 40 MG BID PO (CKD) Magnesium 100 ML ASDIR PRN IV Magnesium Sulfate 50 ML ASDIR PRN IV Magnesium Sulfate 100 ML ASDIR PRN IV Nifedipine 30 MG Q6H PO Meropenem 500 MG Q6H IV (DC) Sterile Water 10 ML Collagenase 1 APPLIC DAILY TOPICAL Aspirin 81 MG DAILY PO Atorvastatin Calcium 40 MG DAILY PO Acetaminophen 650 MG Q4H PRN PRN PO Famotidine 20 MG DAILY PO Dextrose/Water 25 ML ASDIR PRN IV Glucagon 1 MG ASDIR PRN IM Insulin Human Lispro LOW DOSE SCALE ASDIR SUBQ Nutrition assessment: The data set between the solid lines has been im ported from the dietitian's assessment. Any exceptions have been noted under Provider comments. BMI Calculated: 24.6 Nutrition related diagnosis: Overweight Nutrition diagnosis details: BMI 25-29.9 Nutrition problem: INCREASED PROTEIN NEEDS Nutrition etiology: WOUND HEALING Nutrition signs and symptoms: PT W/ MULTIPLE STA GE WOUNDS. Nutrition prescription: -RECOMMEND CHANGING DIET TO CARDIAC (NO RENAL RESTRICTION NEEDS D/T JENNIFER RE SOLVED) -RECOMMEND D/C ENSURE ENLIVE D/T PT REFUSED, GOOD APPETITE -RECOMMEND ANGELIA BID TO ND OMOTE WOUND HEALING -RD TO F/U PER FNS PROTOCOL Dietitian name: Ester Cabrera RD LD Assessment completed: 08/18/20 Provider comments on imported dietitian assessme nt: Physical Exam General appearance: alert, awake Head/Eyes: atraumatic Cardiovascular: normal heart sounds, regular rat e rhythm Respiratory: aerating well, clear to auscultatio n Abdomen: non-tender, normal bowel sounds, soft Extremities: no clubbing 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, LE weakness Results Findings/Data: Laboratory Tests 08/21 0309 Chemistry Sodium (137 - 145 mmol/L) 136 L Potassium (3.4 - 5.0 mmol/L) 5.3 H Chloride (98 - 107 mmol/L) 105 Carbon Dioxide (22 - 30 mmol/L) 21 L BUN (9 - 20 mg/dL) 26 H Creatinine (0.7 - 1.3 mg/dL) 0.7 Glomerular Filtr Rate (>60) 166 Glucose (74 - 106 mg/dL) 96 Calcium (8.4 - 10.2 mg/dL) 9.1 Total Bilirubin (0.2 - 1.3 mg/dL) 0.6 Conjugated Bilirubin (0 - 0.3 mg/dL) 0 Unconjugated Bilirubin (0 - 1.1 mg/dL) 0.4 AST (15 - 46 U/L) 54 H ALT (0 - 34 U/L) 35 H Total Alk Phosphatase (38 - 126 U/L) 97 Total Protein (6.3 - 8.2 g/dL) 7.3 Albumin (3.5 - 5.0 g/dL) 3.8 Laboratory Tests 08/21 0309 Hematology WBC (5.0 - 12.0 x10 3/uL) 7.0 RBC (4.70 - 6.10 x10 6/uL) 2.69 L Hgb (14.0 - 18.0 g/dL) 8.1 L Hct (37.0 - 49.0 %) 25.5 L MCV (80 - 94 fL) 95 H MCH (27 - 31 pg) 30.1 MCHC (33 - 37 g/dL) 31.8 L RDW (11.5 - 15.5 %) 18.2 H Plt Count (130 - 400 x10 3/uL) 386 MPV (9.4 - 16.4 fL) 9.6 Neut % (Auto) (43 - 65 %) 74.7 H Lymph % (Auto) (20.5 - 45.5 %) 14.1 L Citrus % (Auto) (5.5 - 11.7 %) 8.6 Eos % (Auto) (0.9 - 2.9 %) 1.0 Baso % (Auto) (0.2 - 1.0 %) 0.6 Neut # (Auto) (2.2 - 4.8 x10 3/uL) 5.21 H Lymph # (Auto) (1.3 - 2.9 x10 3/uL) 0.98 L Citrus # (Auto) (0.3 - 0.8 x10 3/uL) 0.60 Eos # (Auto) (0.0 - 0.2 x10 3/uL) 0.07 Baso # (Auto) (0.0 - 0.1 x10 3/uL) 0.04 Immature Gran % (0.0 - 2.0 %) 1.0 Nucleated RBC % (0 - 1.0 %) 0.0 Results: labs reviewed, vital signs stable Diagnosis, Assessment Plan Problem List/A P: 1. JENNIFER (acute kidney injury) Creatinine stable. nephrology following. 2. Sepsis Continue Zuñiga change every month s/p 10 days of meropenem 3. UTI (urinary tract infection) Urine culture positive for Pseudomonas and Ente robacter s/p 10 days meropenem 4. Bacteremia due to Enterobacter species Continue meropenem Infectious disease following, appreciate input 5. Metabolic encephalopathy Resolved 6. H/O cardiac arrest Patient status post PEA, resolved 7. 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 Discussed with patient regdiego rding LP again, but states he still does not want at this time. Continue PT/OT 8. Abnormal MRI of head Could be related to CVA Repeat MRI 07/19/20 showed patchy perive ntricular white matter disease appears improved but not resolved since 06/26/20 and may have related to u nderlying metabolic or toxic disorder and/or vasculitis. 9. Acute systolic heart failure Resolved Cardiology following, appreciate input 10. Acute CVA (cerebrovascular accident) Suspected to be cardioembolic, patient found to have PFO Cardiology performed DOMINIK 08/17 in preparation fo r potential PFO closure. Continue medical management 11. Acute on chronic anemia Patient status post 2 units PRBCs Hemoglobin stable now. 12. Hyperkalemia 5.1 today, given lokelma -losartan on hold -monitor BMP daily 13. Hypertensive emergency resolved, treating essential HTN Cardiology on board. 14. Essential hypertension Continue nifedipine, labetalol, Imdur - Imdur uptitrated 15. Aortic dissection History of type B aortic dissection status post thoracic endovascular aortic repair at outside hospital Continue labetalol Manage blood pressure per cardiology 16. Multifocal pneumonia Continue meropenem 17. Acute respiratory failure with hypoxia Resolved, patient extubated prior to downgrade from ICU Now on room air Free Text DxA P Notes Free text DxA P notes: DVT prophylaxis: Heparin Dispo: IRF, CM working on d/c plan. Complicated home situation, searching for personal jail. at 1451 RPT #:[id number] END OF REPORT 2020-08-21 14:50:00-00:00 [facility] Hospitalist Progress Note REPORT#:[id number] REPORT STATUS: Signed DATE:08/21/20 TIME: 1450 PATIENT: JORGE GOINS UNIT #: [id number] ROOM/BED: [address] : [birth year] AGE: 35 SEX: M ATTEND: Raphael Davila MD ADM AUTHOR: Marquita Betancur * ALL edits or amendments must be made on the [employer]/computer document * Subjective Chief Complaint: No new c/o Review of Systems Constitutional: Denies: fever, generalized weakness. Respiratory: Denies: COATES (dyspnea on exertion), non productiv e cough, productive cough ( sputum), SOB. Cardiovascular: Denies: chest pain, edema, orthopnea. GI: Denies: abdominal pain, constipation, diarrhea, nausea, vomiting. All systems rev neg: except as marked Objective General VS/I O: Vital Signs: Date Time Temp Pulse Resp B/P B/P Pulse O2 O2 F low FiO2 Mean Ox Delivery Rate 08/21 1128 36.6 82 18 127/65 85.7 100 08/21 0736 37.1 63 18 144/76 98.9 100 08/21 0555 36.7 78 18 137/65 89.4 100 Room air 08/21 0018 36.6 89 17 117/68 84.0 100 Room air 08/20 2042 37.0 72 18 153/78 102.9 100 Room air 08/20 1836 36.8 70 16 155/78 103.7 100 Room ai r 24 hour I O ending at 0700: 08/21 0700 08/20 1900 Intake Total 480 1100 Output Total 1500 650 Balance -1020 450 Intake, Oral 480 1100 Output, Urine 1500 650 PATIENT WEIGHT: Weight (lb): 176 Weight (oz): 9.44 Weight (kg): 80.100 Medications: Active Meds + DC'd Last 24 Hrs Hydrocodone Bitart/Acetaminophen 1 TAB Q6H PRN P RN PO Zolpidem Tartrate 5 MG BEDTIME PRN PRN PO Hydralazine HCl 10 MG Q6H PRN PRN IV Isosorbide Mononitrate 40 MG BID PO (CKD) Magnesium 100 ML ASDIR PRN IV Magnesium Sulfate 50 ML ASDIR PRN IV Magnesium Sulfate 100 ML ASDIR PRN IV Nifedipine 30 MG Q6H PO Meropenem 500 MG Q6H IV (DC) Sterile Water 10 ML Collagenase 1 APPLIC DAILY TOPICAL Aspirin 81 MG DAILY PO Atorvastatin Calcium 40 MG DAILY PO Acetaminophen 650 MG Q4H PRN PRN PO Famotidine 20 MG DAILY PO Dextrose/Water 25 ML ASDIR PRN IV Glucagon 1 MG ASDIR PRN IM Insulin Human Lispro LOW DOSE SCALE ASDIR SUBQ Nutrition assessment: The data set between the solid lines has been im ported from the dietitian's assessment. Any exceptions have been noted under Provider comments. BMI Calculated: 24.6 Nutrition related diagnosis: Overweight Nutrition diagnosis details: BMI 25-29.9 Nutrition problem: INCREASED PROTEIN NEEDS Nutrition etiology: WOUND HEALING Nutrition signs and symptoms: PT W/ MULTIPLE STA GE WOUNDS. Nutrition prescription: -RECOMMEND CHANGING DIET TO CARDIAC (NO RENAL RESTRICTION NEEDS D/T JENNIFER RE SOLVED) -RECOMMEND D/C ENSURE ENLIVE D/T PT REFUSED, GOOD APPETITE -RECOMMEND ANGELIA BID TO ND OMOTE WOUND HEALING -RD TO F/U PER FNS PROTOCOL Dietitian name: Ester Cabrera RD LD Assessment completed: 08/18/20 Provider comments on imported dietitian assessme nt: Physical Exam General appearance: alert, awake Head/Eyes: atraumatic Cardiovascular: normal heart sounds, regular rat e rhythm Respiratory: aerating well, clear to auscultatio n Abdomen: non-tender, normal bowel sounds, soft Extremities: no clubbing 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, LE weakness Results Findings/Data: Laboratory Tests 08/21 0309 Chemistry Sodium (137 - 145 mmol/L) 136 L Potassium (3.4 - 5.0 mmol/L) 5.3 H Chloride (98 - 107 mmol/L) 105 Carbon Dioxide (22 - 30 mmol/L) 21 L BUN (9 - 20 mg/dL) 26 H Creatinine (0.7 - 1.3 mg/dL) 0.7 Glomerular Filtr Rate (>60) 166 Glucose (74 - 106 mg/dL) 96 Calcium (8.4 - 10.2 mg/dL) 9.1 Total Bilirubin (0.2 - 1.3 mg/dL) 0.6 Conjugated Bilirubin (0 - 0.3 mg/dL) 0 Unconjugated Bilirubin (0 - 1.1 mg/dL) 0.4 AST (15 - 46 U/L) 54 H ALT (0 - 34 U/L) 35 H Total Alk Phosphatase (38 - 126 U/L) 97 Total Protein (6.3 - 8.2 g/dL) 7.3 Albumin (3.5 - 5.0 g/dL) 3.8 Laboratory Tests 08/21 0309 Hematology WBC (5.0 - 12.0 x10 3/uL) 7.0 RBC (4.70 - 6.10 x10 6/uL) 2.69 L Hgb (14.0 - 18.0 g/dL) 8.1 L Hct (37.0 - 49.0 %) 25.5 L MCV (80 - 94 fL) 95 H MCH (27 - 31 pg) 30.1 MCHC (33 - 37 g/dL) 31.8 L RDW (11.5 - 15.5 %) 18.2 H Plt Count (130 - 400 x10 3/uL) 386 MPV (9.4 - 16.4 fL) 9.6 Neut % (Auto) (43 - 65 %) 74.7 H Lymph % (Auto) (20.5 - 45.5 %) 14.1 L Citrus % (Auto) (5.5 - 11.7 %) 8.6 Eos % (Auto) (0.9 - 2.9 %) 1.0 Baso % (Auto) (0.2 - 1.0 %) 0.6 Neut # (Auto) (2.2 - 4.8 x10 3/uL) 5.21 H Lymph # (Auto) (1.3 - 2.9 x10 3/uL) 0.98 L Citrus # (Auto) (0.3 - 0.8 x10 3/uL) 0.60 Eos # (Auto) (0.0 - 0.2 x10 3/uL) 0.07 Baso # (Auto) (0.0 - 0.1 x10 3/uL) 0.04 Immature Gran % (0.0 - 2.0 %) 1.0 Nucleated RBC % (0 - 1.0 %) 0.0 Results: labs reviewed, vital signs stable Diagnosis, Assessment Plan Problem List/A P: 1. JENNIFER (acute kidney injury) Creatinine stable. nephrology following. 2. Sepsis Continue Zuñiga change every month s/p 10 days of meropenem 3. UTI (urinary tract infection) Urine culture positive for Pseudomonas and Ente robacter s/p 10 days meropenem 4. Bacteremia due to Enterobacter species Continue meropenem Infectious disease following, appreciate input 5. Metabolic encephalopathy Resolved 6. H/O cardiac arrest Patient status post PEA, resolved 7. 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 Discussed with patient rega rding LP again, but states he still does not want at this time. Continue PT/OT 8. Abnormal MRI of head Could be related to CVA Repeat MRI 07/19/20 showed patchy perive ntricular white matter disease appears improved but not resolved since 06/26/20 and may have related to u nderlying metabolic or toxic disorder and/or vasculitis. 9. Acute systolic heart failure Resolved Cardiology following, appreciate input 10. Acute CVA (cerebrovascular accident) Suspected to be cardioembolic, patient found to have PFO Cardiology performed DOMINIK 08/17 in preparation fo r potential PFO closure. Continue medical management 11. Acute on chronic anemia Patient status post 2 units PRBCs Hemoglobin stable now. 12. Hyperkalemia 5.1 today, given lokelma -losartan on hold -monitor BMP daily 13. Hypertensive emergency resolved, treating essential HTN Cardiology on board. 14. Essential hypertension Continue nifedipine, labetalol, Imdur - Imdur uptitrated 15. Aortic dissection History of type B aortic dissection status post thoracic endovascular aortic repair at outside hospital Continue labetalol Manage blood pressure per cardiology 16. Multifocal pneumonia Continue meropenem 17. Acute respiratory failure with hypoxia Resolved, patient extubated prior to downgrade from ICU Now on room air Free Text DxA P Notes Free text DxA P notes: DVT prophylaxis: Heparin Dispo: IRF, CM working on d/c plan. Complicated home situation, searching for personal jail. at 1451 Electronically Signed by Raphael Davila MD on at 1230 RPT #:[id number] END OF REPORT 2020-08-21 14:15:00-00:[address] [facility] ([facility]) Nephrology Progress Note REPORT#:[id number] REPORT STATUS: Signed DATE:08/21/20 TIME: 1415 PATIENT: JORGE GOINS UNIT #: [id number] ROOM/BED: [address] : [birth year] AGE: 35 SEX: M ATTEND: Raphael Davila MD ADM AUTHOR: Stevie Andersen R2 * ALL edits or amendments must be made on the [employer] document * Subjective Chief Complaint: Htn emergency, ams HPI: NO EVENTS, FEELING WELL, HYPERKALEMIA HE MOLYZED, STILL NO STRNGHT IN HIS LEGS. Review of Systems All systems rev neg: except as marked Objective General VS/I O: Vital Signs: Date Time Temp Pulse Resp B/P B/P Pulse O2 O2 F low FiO2 Mean Ox Delivery Rate 08/21 1128 36.6 82 18 127/65 85.7 100 08/21 0736 37.1 63 18 144/76 98.9 100 08/21 0555 36.7 78 18 137/65 89.4 100 Room air 08/21 0018 36.6 89 17 117/68 84.0 100 Room air 08/20 2042 37.0 72 18 153/78 102.9 100 Room air 08/20 1836 36.8 70 16 155/78 103.7 100 Room air 24 hour I O ending at 0700: 08/21 0700 08/20 1900 Intake Total 480 1100 Output Total 1500 650 Balance -1020 450 Intake, Oral 480 1100 Output, Urine 1500 650 PATIENT WEIGHT: Weight (lb): 176 Weight (oz): 9.44 Weight (kg): 80.100 Medications Active Meds + DC'd Last 24 Hrs Hydrocodone Bitart/Acetaminophen 1 TAB Q6H PRN P RN PO Zolpidem Tartrate 5 MG BEDTIME PRN PRN PO Hydralazine HCl 10 MG Q6H PRN PRN IV Isosorbide Mononitrate 40 MG BID PO (CKD) Magnesium 100 ML ASDIR PRN IV Magnesium Sulfate 50 ML ASDIR PRN IV Magnesium Sulfate 100 ML ASDIR PRN IV Nifedipine 30 MG Q6H PO Meropenem 500 MG Q6H IV (DC) Sterile Water 10 ML Collagenase 1 APPLIC DAILY TOPICAL Aspirin 81 MG DAILY PO Atorvastatin Calcium 40 MG DAILY PO Acetaminophen 650 MG Q4H PRN PRN PO Famotidine 20 MG DAILY PO Dextrose/Water 25 ML ASDIR PRN IV Glucagon 1 MG ASDIR PRN IM Insulin Human Lispro LOW DOSE SCALE ASDIR SUBQ Physical Exam General appearance: alert, awake, oriented ENT: moist mucous membranes Neck: no JVD, no masses or swelling Cardiovascular: normal heart sounds, regular rat e and rhythm Respiratory: aerating well, clear to auscultatio n Abdomen: normal bowel sounds, soft Extremities: no edema Musculoskeletal: decreased ROM 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 Skin: dry Results Findings/Data: Laboratory Tests 08/21 308 Chemistry Sodium (137 - 145 mmol/L) 136 L Potassium (3.4 - 5.0 mmol/L) 5.3 H Chloride (98 - 107 mmol/L) 105 Carbon Dioxide (22 - 30 mmol/L) 21 L BUN (9 - 20 mg/dL) 26 H Creatinine (0.7 - 1.3 mg/dL) 0.7 Glomerular Filtr Rate (>60) 166 Glucose (74 - 106 mg/dL) 96 Calcium (8.4 - 10.2 mg/dL) 9.1 Total Bilirubin (0.2 - 1.3 mg/dL) 0.6 Conjugated Bilirubin (0 - 0.3 mg/dL) 0 Unconjugated Bilirubin (0 - 1.1 mg/dL) 0.4 AST (15 - 46 U/L) 54 H ALT (0 - 34 U/L) 35 H Total Alk Phosphatase (38 - 126 U/L) 97 Total Protein (6.3 - 8.2 g/dL) 7.3 Albumin (3.5 - 5.0 g/dL) 3.8 Laboratory Tests 08/21 308 Hematology WBC (5.0 - 12.0 x10 3/uL) 7.0 RBC (4.70 - 6.10 x10 6/uL) 2.69 L Hgb (14.0 - 18.0 g/dL) 8.1 L Hct (37.0 - 49.0 %) 25.5 L MCV (80 - 94 fL) 95 H MCH (27 - 31 pg) 30.1 MCHC (33 - 37 g/dL) 31.8 L RDW (11.5 - 15.5 %) 18.2 H Plt Count (130 - 400 x10 3/uL) 386 MPV (9.4 - 16.4 fL) 9.6 Neut % (Auto) (43 - 65 %) 74.7 H Lymph % (Auto) (20.5 - 45.5 %) 14.1 L Citrus % (Auto) (5.5 - 11.7 %) 8.6 Eos % (Auto) (0.9 - 2.9 %) 1.0 Baso % (Auto) (0.2 - 1.0 %) 0.6 Neut # (Auto) (2.2 - 4.8 x10 3/uL) 5.21 H Lymph # (Auto) (1.3 - 2.9 x10 3/uL) 0.98 L Citrus # (Auto) (0.3 - 0.8 x10 3/uL) 0.60 Eos # (Auto) (0.0 - 0.2 x10 3/uL) 0.07 Baso # (Auto) (0.0 - 0.1 x10 3/uL) 0.04 Immature Gran % (0.0 - 2.0 %) 1.0 Nucleated RBC % (0 - 1.0 %) 0.0 Diagnosis, Assessment Plan Hospital course to date: mr goins is a 35yo male with hisoty of AAA and htn who has had a prolonged hospitalization due to PEA a rrest, respiratory failure s/p intubation, multiple embolic strokes, new onset HFrEF and JENNIFER, now do wngraded from ICU given significant recovery. Nephro initially consulted for new onset jennifer. #JENNIFER w/severe metabolic acidosis -resolved -eGFR stable -continue to monitor #enterobacter bacteremia-resolved #psa uti s/p abx #multifocal ischemic strokes #hfref-stable #htn -nifedipine, isosorbide #AAA recs; stable renal-white, dispo per primary Plan discussed with: patient, nurse Attestations Attestation needed: supervising physician (DR SALOMON OR) at 1418 RPT #:[id number] END OF REPORT 2020-08-21 14:15:00-00:[address] [facility] ([facility]) Nephrology Progress Note REPORT#:[id number] REPORT STATUS: Signed DATE:08/21/20 TIME: 1415 PATIENT: JORGE GOINS UNIT #: [id number] ROOM/BED: [address] : [birth year] AGE: 35 SEX: M ATTEND: Raphael Davila MD ADM AUTHOR: Stevie Andersen R2 * ALL edits or amendments must be made on the [employer] document * Subjective Chief Complaint: Htn emergency, ams HPI: NO EVENTS, FEELING WELL, HYPERKALEMIA HE MOLYZED, STILL NO STRNGHT IN HIS LEGS. Review of Systems All systems rev neg: except as marked Objective General VS/I O: Vital Signs: Date Time Temp Pulse Resp B/P B/P Pulse O2 O2 Flow FiO2 Mean Ox Delivery Rate 08/21 1128 36.6 82 18 127/65 85.7 100 08/21 0736 37.1 63 18 144/76 98.9 100 08/21 0555 36.7 78 18 137/65 89.4 100 Room air 08/21 0018 36.6 89 17 117/68 84.0 100 Room air 08/20 2042 37.0 72 18 153/78 102.9 100 Room air 08/20 1836 36.8 70 16 155/78 103.7 100 Room air 24 hour I O ending at 0700: 08/21 0700 08/20 1900 Intake Total 480 1100 Output Total 1500 650 Balance -1020 450 Intake, Oral 480 1100 Output, Urine 1500 650 PATIENT WEIGHT: Weight (lb): 176 Weight (oz): 9.44 Weight (kg): 80.100 Medications Active Meds + DC'd Last 24 Hrs Hydrocodone Bitart/Acetaminophen 1 TAB Q6H PRN P RN PO Zolpidem Tartrate 5 MG BEDTIME PRN PRN PO Hydralazine HCl 10 MG Q6H PRN PRN IV Isosorbide Mononitrate 40 MG BID PO (CKD) Magnesium 100 ML ASDIR PRN IV Magnesium Sulfate 50 ML ASDIR PRN IV Magnesium Sulfate 100 ML ASDIR PRN IV Nifedipine 30 MG Q6H PO Meropenem 500 MG Q6H IV (DC) Sterile Water 10 ML Collagenase 1 APPLIC DAILY TOPICAL Aspirin 81 MG DAILY PO Atorvastatin Calcium 40 MG DAILY PO Acetaminophen 650 MG Q4H PRN PRN PO Famotidine 20 MG DAILY PO Dextrose/Water 25 ML ASDIR PRN IV Glucagon 1 MG ASDIR PRN IM Insulin Human Lispro LOW DOSE SCALE ASDIR SUBQ Physical Exam General appearance: alert, awake, oriented ENT: moist mucous membranes Neck: no JVD, no masses or swelling Cardiovascular: normal heart sounds, regular rat e and rhythm Respiratory: aerating well, clear to auscultatio n Abdomen: normal bowel sounds, soft Extremities: no edema Musculoskeletal: decreased ROM 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 Skin: dry Results Findings/Data: Laboratory Tests 08/21 308 Chemistry Sodium (137 - 145 mmol/L) 136 L Potassium (3.4 - 5.0 mmol/L) 5.3 H Chloride (98 - 107 mmol/L) 105 Carbon Dioxide (22 - 30 mmol/L) 21 L BUN (9 - 20 mg/dL) 26 H Creatinine (0.7 - 1.3 mg/dL) 0.7 Glomerular Filtr Rate (>60) 166 Glucose (74 - 106 mg/dL) 96 Calcium (8.4 - 10.2 mg/dL) 9.1 Total Bilirubin (0.2 - 1.3 mg/dL) 0.6 Conjugated Bilirubin (0 - 0.3 mg/dL) 0 Unconjugated Bilirubin (0 - 1.1 mg/dL) 0.4 AST (15 - 46 U/L) 54 H ALT (0 - 34 U/L) 35 H Total Alk Phosphatase (38 - 126 U/L) 97 Total Protein (6.3 - 8.2 g/dL) 7.3 Albumin (3.5 - 5.0 g/dL) 3.8 Laboratory Tests 08/21 308 Hematology WBC (5.0 - 12.0 x10 3/uL) 7.0 RBC (4.70 - 6.10 x10 6/uL) 2.69 L Hgb (14.0 - 18.0 g/dL) 8.1 L Hct (37.0 - 49.0 %) 25.5 L MCV (80 - 94 fL) 95 H MCH (27 - 31 pg) 30.1 MCHC (33 - 37 g/dL) 31.8 L RDW (11.5 - 15.5 %) 18.2 H Plt Count (130 - 400 x10 3/uL) 386 MPV (9.4 - 16.4 fL) 9.6 Neut % (Auto) (43 - 65 %) 74.7 H Lymph % (Auto) (20.5 - 45.5 %) 14.1 L Citrus % (Auto) (5.5 - 11.7 %) 8.6 Eos % (Auto) (0.9 - 2.9 %) 1.0 Baso % (Auto) (0.2 - 1.0 %) 0.6 Neut # (Auto) (2.2 - 4.8 x10 3/uL) 5.21 H Lymph # (Auto) (1.3 - 2.9 x10 3/uL) 0.98 L Citrus # (Auto) (0.3 - 0.8 x10 3/uL) 0.60 Eos # (Auto) (0.0 - 0.2 x10 3/uL) 0.07 Baso # (Auto) (0.0 - 0.1 x10 3/uL) 0.04 Immature Gran % (0.0 - 2.0 %) 1.0 Nucleated RBC % (0 - 1.0 %) 0.0 Diagnosis, Assessment Plan Hospital course to date: mr goins is a 35yo male with hisoty of AAA and htn who has had a prolonged hospitalization due to PEA a rrest, respiratory failure s/p intubation, multiple embolic strokes, new onset HFrEF and JENNIFER, now do wngraded from ICU given significant recovery. Nephro initially consulted for new onset jennifer. #JENNIFER w/severe metabolic acidosis -resolved -eGFR stable -continue to monitor #enterobacter bacteremia-resolved #psa uti s/p abx #multifocal ischemic strokes #hfref-stable #htn -nifedipine, isosorbide #AAA recs; stable renal-white, dispo per primary Plan discussed with: patient, nurse Attestations Attestation needed: supervising physician (DR AIME LONDONO) at 1418 at 1714 RPT #:[id number] END OF REPORT 2020-08-20 17:10:00-00:00 [id number] [facility] ood [facility] [address] [place] [address] PATIENT NAME: JORGE GOINS ADMIT DATE: 06/19 ACCOUNT NO: [id number] ROOM NO: [facility] AGE: 35 REPORT TYPE: eTRANSESOPHAGEAL REPORT SEX: M ADMITTING PHYSICIAN:Raphael Davila MD ATTENDING PHYSICIAN:Raphael Davila MD *[facility]* [address] [place] [address] Transesophageal Echocardiogram Patient: Jorge Goins Study Date: 08/17/2020 BP: 169 / 88 Location: [facility] URN: [id number] 261 : 1985 Age: 35 Height: 71 in / 180.3 cm Gender: M Weight: 17 6 lb / 80 kg BMI/BSA: 24.6 kg/m 2 / 2.01 m 2 *Ordering Physician: * Raphael Davila *Interpreting Physician: * Maribeth Daugherty MD *Customer Technical Services Manager: * Lalita Eldridge Indications: STROKE R/O PFO. Study data: Consent: The risks, benefits, and al ternatives to the procedure were explained to the patient and info rmed consent was obtained. Procedure: Initial setup: The patient was brought to the laboratory in the fasting state.Intravenous acce ss was obtained. Surface ECG leads and pulse oximetric signals were monit ored. Sedation. Sedation was administered by anesthesiology staff. Transe sophageal echocardiography was performed. Topical anesthes ia was obtained using viscous lidocaine. A transesophageal probe (SN: [id number]) was inserted by the attending cook syrup maker without difficulty. I mages were obtained using a [employer] E95 2 cardiac ultrasound adriel e. Location: [facility]. Patient status: Inpatient. Hipolito abraham m number: [id number]. Study status: Routine. Study completion: The patient t olerated the procedure well. There were no complications. Findings PATIENT NAME: JORGE GOINS [id number] Left ventricle: The cavity size is normal. Systo lic function is normal. The estimated ejection fraction is 55-59%. Right ventricle: The cavity size is normal. Syst olic function is normal. Left atrium: The atrium is normal in size. The a ppendage is of normal size. Multi-lobular. Emptying velocity is normal . There is no evidence of a thrombus in the atrial cavity or appendage. Right atrium: The atrium is normal in size. Ther e is no evidence of a thrombus in the atrial cavity or appendage. Atrial septum: No defect or patent foramen ovale is identified. Doppler and echo contrast study shows no right-t o-left atrial level shunt. Aorta: Aortic root: The aortic root is normal in size. There is no evidence for dissection in visualize d portion of descending aorta. Aortic stent graft is noted on visualied portion of descending aorta. Aortic valve: The valve is structurally normal. The valve is trileaflet. Cusp separation is normal. There is no evidence of stenosis. There is trivial regurgitation. Mitral valve: The valve is structurally normal. There is mild regurgitation. Tricuspid valve: The valve is structurally brooklynn l. There is no regurgitation. Pulmonic valve: Not well visualized. No thickeni ng. Cusp separation is normal. There is no regurgitation. Systemic veins: Superior vena cava: The vessel is normal in size . Conclusions Summary: 1. Left ventricle: The cavity size is normal. Sy stolic function is normal. The estimated ejection fraction is 55- 59%. 2. Right ventricle: The cavity size is normal. S ystolic function is normal. 3. Left atrium: The atrium is normal in size. Th e appendage is of normal size. Multi-lobular. Emptying velocity is brooklynn l. There is no evidence of a thrombus in the atrial cavity or appendage. 4. Right atrium: There is no evidence of a throm bus in the atrial cavity or appendage. 5. Atrial septum: No defect or patent foramen ov carlos alberto is identified. Doppler and echo contrast study shows no right- to-left atrial level shunt. 6. Aorta: There is no evidence for dissection in visualized portion of descending aorta. Aortic stent graft is noted o n visualied portion of descending aorta. Prepared and electronically signed by PATIENT NAME: JORGE GOINS [id number] Maribeth Daugherty MD 08/20/2020 17:10 at 1710 PATIENT NAME: JORGE GOINS [id number] 15:13:00-00:[address] [facility] ([facility]) [facility] Progress Note REPORT#:[id number] REPORT STATUS: Signed DATE:08/20/20 TIME: 1513 PATIENT: JORGE GOINS UNIT #: [id number] ROOM/BED: 3320-A : 86 AGE: 35 SEX: M ATTEND: Raphael Davila MD ADM AUTHOR: Marqiuta Betancur * ALL edits or amendments must be made on the rimidi/computer document * Subjective Chief Complaint: No new c/o Pt medically ready for discharge Review of Systems Constitutional: Denies: generalized weakness. Respiratory: Denies: COATES (dyspnea on exertion), non productiv e cough, productive cough ( sputum), SOB. Cardiovascular: Denies: chest pain, edema. GI: Denies: abdominal pain, constipation, diarrhea, nausea, vomiting. All systems rev neg: except as marked Objective General VS/I O: Vital Signs: Date Time Temp Pulse Resp B/P B/P Pulse O2 O2 F low FiO2 Mean Ox Delivery Rate 08/20 1240 36.5 70 18 143/85 104.1 100 08/20 0737 36.8 72 18 133/75 94.4 100 08/20 0430 36.0 70 20 137/68 91.0 96 08/19 2350 37.0 68 20 162/89 113.1 100 08/19 1957 37.0 68 19 135/74 94.5 100 08/19 1607 69 14 125/65 85.2 100 24 hour I O ending at 0700: 08/20 0700 08/19 1900 Intake Total 480 Output Total 1200 650 Balance -720 -650 Intake, Oral 480 Output, Urine 1200 650 PATIENT WEIGHT: Weight (lb): 176 Weight (oz): 9.44 Weight (kg): 80.100 Medications: Active Meds + DC'd Last 24 Hrs Hydralazine HCl 10 MG Q6H PRN PRN IV Isosorbide Mononitrate 40 MG BID PO (CKD) Hydrocodone Bitart/Acetaminophen 1 TAB Q8H PRN P RN PO (DC) Magnesium 100 ML ASDIR PRN IV Magnesium Sulfate 50 ML ASDIR PRN IV Magnesium Sulfate 100 ML ASDIR PRN IV Nifedipine 30 MG Q6H PO Meropenem 500 MG Q6H IV Sterile Water 10 ML Collagenase 1 APPLIC DAILY TOPICAL Aspirin 81 MG DAILY PO Atorvastatin Calcium 40 MG DAILY PO Acetaminophen 650 MG Q4H PRN PRN PO Famotidine 20 MG DAILY PO Labetalol HCl 600 MG Q8HR PO (DC) Heparin Sodium (Porcine) 5,000 UNIT Q12HR SUBQ ( DC) Dextrose/Water 25 ML ASDIR PRN IV Glucagon 1 MG ASDIR PRN IM Insulin Human Lispro LOW DOSE SCALE ASDIR SUBQ Nutrition assessment: The data set between the solid lines has been im ported from the dietitian's assessment. Any exceptions have been noted unde r Provider comments. BMI Calculated: 24.6 Nutrition related diagnosis: Overweight Nutrition diagnosis details: BMI 25-29.9 Nutrition problem: INCREASED PROTEIN NEEDS Nutrition etiology: WOUND HEALING Nutrition signs and symptoms: PT W/ MULTIPLE STA GE WOUNDS. Nutrition prescription: -RECOMMEND CHANGING DIET TO CARDIAC (NO RENAL RESTRICTION NEEDS D/T JENNIFER RE SOLVED) -RECOMMEND D/C ENSURE ENLIVE D/T PT REFUSED, GOOD APPETITE -RECOMMEND ANGELIA BID TO ND OMOTE WOUND HEALING -RD TO F/U PER FNS PROTOCOL Dietitian name: JONNATHAN Fine Assessment completed: 08/18/20 Provider comments on imported dietitian assessme nt: Physical Exam General appearance: alert, awake Head/Eyes: atraumatic Cardiovascular: normal heart sounds, regular rat e rhythm Respiratory: aerating well, clear to auscultatio n Abdomen: non-tender, normal bowel sounds, soft Extremities: no clubbing 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, LE weakness Results Findings/Data: Laboratory Tests 08/19 1650 Chemistry Sodium (137 - 145 mmol/L) 134 L Potassium (3.4 - 5.0 mmol/L) 5.0 Chloride (98 - 107 mmol/L) 101 Carbon Dioxide (22 - 30 mmol/L) 24 BUN (9 - 20 mg/dL) 24 H Creatinine (0.7 - 1.3 mg/dL) 0.7 Glomerular Filtr Rate (>60) 166 Glucose (74 - 106 mg/dL) 85 Calcium (8.4 - 10.2 mg/dL) 9.1 Total Bilirubin (0.2 - 1.3 mg/dL) 0.5 Conjugated Bilirubin (0 - 0.3 mg/dL) 0 Unconjugated Bilirubin (0 - 1.1 mg/dL) 0.4 AST (15 - 46 U/L) 33 ALT (0 - 34 U/L) 41 H Total Alk Phosphatase (38 - 126 U/L) 116 Total Protein (6.3 - 8.2 g/dL) 7.1 Albumin (3.5 - 5.0 g/dL) 3.7 Laboratory Tests 08/19 1650 Hematology WBC (5.0 - 12.0 x10 3/uL) 7.4 RBC (4.70 - 6.10 x10 6/uL) 2.74 L Hgb (14.0 - 18.0 g/dL) 8.1 L Hct (37.0 - 49.0 %) 25.8 L MCV (80 - 94 fL) 94 MCH (27 - 31 pg) 29.6 MCHC (33 - 37 g/dL) 31.4 L RDW (11.5 - 15.5 %) 18.2 H Plt Count (130 - 400 x10 3/uL) 367 MPV (9.4 - 16.4 fL) 9.4 Neut % (Auto) (43 - 65 %) 75.1 H Lymph % (Auto) (20.5 - 45.5 %) 14.3 L Citrus % (Auto) (5.5 - 11.7 %) 8.3 Eos % (Auto) (0.9 - 2.9 %) 0.8 L Baso % (Auto) (0.2 - 1.0 %) 0.7 Neut # (Auto) (2.2 - 4.8 x10 3/uL) 5.53 H Lymph # (Auto) (1.3 - 2.9 x10 3/uL) 1.05 L Citrus # (Auto) (0.3 - 0.8 x10 3/uL) 0.61 Eos # (Auto) (0.0 - 0.2 x10 3/uL) 0.06 Baso # (Auto) (0.0 - 0.1 x10 3/uL) 0.05 Immature Gran % (0.0 - 2.0 %) 0.8 Nucleated RBC % (0 - 1.0 %) 0.0 Results: labs reviewed, vital signs stable Diagnosis, Assessment Plan Problem List/A P: 1. JENNIFER (acute kidney injury) Creatinine stable. nephrology following. 2. Sepsis Continue Zuñiga change every month s/p 10 days of meropenem 3. UTI (urinary tract infection) Urine culture positive for Pseudomonas and Ente robacter s/p 10 days meropenem 4. Bacteremia due to Enterobacter species Continue meropenem Infectious disease following, appreciate input 5. Metabolic encephalopathy Resolved 6. H/O cardiac arrest Patient status post PEA, resolved 7. 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 Discussed with patient rega rding LP again, but states he still does not want at this time. Continue PT/OT 8. Abnormal MRI of head Could be related to CVA Repeat MRI 07/19/20 showed patchy perive ntricular white matter disease appears improved but not resolved since 06/26/20 and may have related to u nderlying metabolic or toxic disorder and/or vasculitis. 9. Acute systolic heart failure Resolved Cardiology following, appreciate input 10. Acute CVA (cerebrovascular accident) Suspected to be cardioembolic, patient found to have PFO Cardiology performed DOMINIK 08/17 in preparation fo r potential PFO closure. Continue medical management 11. Acute on chronic anemia Patient status post 2 units PRBCs Hemoglobin stable now. 12. Hyperkalemia 5.1 today, given lokelma -losartan on hold -monitor BMP daily 13. Hypertensive emergency resolved, treating essential HTN Cardiology on board. 14. Essential hypertension Continue nifedipine, labetalol, Imdur - Imdur uptitrated 15. Aortic dissection History of type B aortic dissection status post thoracic endovascular aortic repair at outside hospital Continue labetalol Manage blood pressure per cardiology 16. Multifocal pneumonia Continue meropenem 17. Acute respiratory failure with hypoxia Resolved, patient extubated prior to downgrade from ICU Now on room air Free Text DxA P Notes Free text DxA P notes: DVT prophylaxis: Heparin Dispo: PT/OT to re-evaluate patient who is now r equesting IRF. CM aware and working on finding IRF vs Personal jail at 1515 RPT #:[id number] END OF REPORT 2020-08-20 15:13:00-00:00 [facility] Hospitalist Progress Note REPORT#:[id number] REPORT STATUS: Signed DATE:08/20/20 TIME: 1513 PATIENT: JORGE GOINS UNIT #: [id number] [address] AGE: 35 SEX: M ATTEND: Raphael Davila MD ADM AUTHOR: Marquita Betancur * ALL edits or amendments must be made on the rimidi/computer document * Subjective Chief Complaint: No new c/o Pt medically ready for discharge Review of Systems Constitutional: Denies: generalized weakness. Respiratory: Denies: COATES (dyspnea on exertion), non productiv e cough, productive cough ( sputum), SOB. Cardiovascular: Denies: chest pain, edema. GI: Denies: abdominal pain, constipation, diarrhea, nausea, vomiting. All systems rev neg: except as marked Objective General VS/I O: Vital Signs: Date Time Temp Pulse Resp B/P B/P Pulse O2 O2 F low FiO2 Mean Ox Delivery Rate 08/20 1240 36.5 70 18 143/85 104.1 100 08/20 0737 36.8 72 18 133/75 94.4 100 08/20 0430 36.0 70 20 137/68 91.0 96 08/19 2350 37.0 68 20 162/89 113.1 100 08/19 1957 37.0 68 19 135/74 94.5 100 08/19 1607 69 14 125/65 85.2 100 24 hour I O ending at 0700: 08/20 0700 08/19 1900 Intake Total 480 Output Total 1200 650 Balance -720 -650 Intake, Oral 480 Output, Urine 1200 650 PATIENT WEIGHT: Weight (lb): 176 Weight (oz): 9.44 Weight (kg): 80.100 Medications: Active Meds + DC'd Last 24 Hrs Hydralazine HCl 10 MG Q6H PRN PRN IV Isosorbide Mononitrate 40 MG BID PO (CKD) Hydrocodone Bitart/Acetaminophen 1 TAB Q8H PRN P RN PO (DC) Magnesium 100 ML ASDIR PRN IV Magnesium Sulfate 50 ML ASDIR PRN IV Magnesium Sulfate 100 ML ASDIR PRN IV Nifedipine 30 MG Q6H PO Meropenem 500 MG Q6H IV Sterile Water 10 ML Collagenase 1 APPLIC DAILY TOPICAL Aspirin 81 MG DAILY PO Atorvastatin Calcium 40 MG DAILY PO Acetaminophen 650 MG Q4H PRN PRN PO Famotidine 20 MG DAILY PO Labetalol HCl 600 MG Q8HR PO (DC) Heparin Sodium (Porcine) 5,000 UNIT Q12HR SUBQ ( DC) Dextrose/Water 25 ML ASDIR PRN IV Glucagon 1 MG ASDIR PRN IM Insulin Human Lispro LOW DOSE SCALE ASDIR SUBQ Nutrition assessment: The data set between the solid lines has been im ported from the dietitian's assessment. Any exceptions have been noted under Provider comments. BMI Calculated: 24.6 Nutrition related diagnosis: Overweight Nutrition diagnosis details: BMI 25-29.9 Nutrition problem: INCREASED PROTEIN NEEDS Nutrition etiology: WOUND HEALING Nutrition signs and symptoms: PT W/ MULTIPLE STA GE WOUNDS. Nutrition prescription: -RECOMMEND CHANGING DIET TO CARDIAC (NO RENAL RESTRICTION NEEDS D/T JENNIFER RE SOLVED) -RECOMMEND D/C ENSURE ENLIVE D/T PT REFUSED, GOOD APPETITE -RECOMMEND ANGELIA BID TO ND OMOTE WOUND HEALING -RD TO F/U PER FNS PROTOCOL Dietitian name: Ester Cabrera RD LD Assessment completed: 08/18/20 Provider comments on imported dietitian assessme nt: Physical Exam General appearance: alert, awake Head/Eyes: atraumatic Cardiovascular: normal heart sounds, regular rat e rhythm Respiratory: aerating well, clear to auscultatio n Abdomen: non-tender, normal bowel sounds, soft Extremities: no clubbing 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, LE weakness Results Findings/Data: Laboratory Tests 08/19 1650 Chemistry Sodium (137 - 145 mmol/L) 134 L Potassium (3.4 - 5.0 mmol/L) 5.0 Chloride (98 - 107 mmol/L) 101 Carbon Dioxide (22 - 30 mmol/L) 24 BUN (9 - 20 mg/dL) 24 H Creatinine (0.7 - 1.3 mg/dL) 0.7 Glomerular Filtr Rate (>60) 166 Glucose (74 - 106 mg/dL) 85 Calcium (8.4 - 10.2 mg/dL) 9.1 Total Bilirubin (0.2 - 1.3 mg/dL) 0.5 Conjugated Bilirubin (0 - 0.3 mg/dL) 0 Unconjugated Bilirubin (0 - 1.1 mg/dL) 0.4 AST (15 - 46 U/L) 33 ALT (0 - 34 U/L) 41 H Total Alk Phosphatase (38 - 126 U/L) 116 Total Protein (6.3 - 8.2 g/dL) 7.1 Albumin (3.5 - 5.0 g/dL) 3.7 Laboratory Tests 08/19 1650 Hematology WBC (5.0 - 12.0 x10 3/uL) 7.4 RBC (4.70 - 6.10 x10 6/uL) 2.74 L Hgb (14.0 - 18.0 g/dL) 8.1 L Hct (37.0 - 49.0 %) 25.8 L MCV (80 - 94 fL) 94 MCH (27 - 31 pg) 29.6 MCHC (33 - 37 g/dL) 31.4 L RDW (11.5 - 15.5 %) 18.2 H Plt Count (130 - 400 x10 3/uL) 367 MPV (9.4 - 16.4 fL) 9.4 Neut % (Auto) (43 - 65 %) 75.1 H Lymph % (Auto) (20.5 - 45.5 %) 14.3 L Citrus % (Auto) (5.5 - 11.7 %) 8.3 Eos % (Auto) (0.9 - 2.9 %) 0.8 L Baso % (Auto) (0.2 - 1.0 %) 0.7 Neut # (Auto) (2.2 - 4.8 x10 3/uL) 5.53 H Lymph # (Auto) (1.3 - 2.9 x10 3/uL) 1.05 L Citrus # (Auto) (0.3 - 0.8 x10 3/uL) 0.61 Eos # (Auto) (0.0 - 0.2 x10 3/uL) 0.06 Baso # (Auto) (0.0 - 0.1 x10 3/uL) 0.05 Immature Gran % (0.0 - 2.0 %) 0.8 Nucleated RBC % (0 - 1.0 %) 0.0 Results: labs reviewed, vital signs stable Diagnosis, Assessment Plan Problem List/A P: 1. JENNIFER (acute kidney injury) Creatinine stable. nephrology following. 2. Sepsis Continue Zuñiga change every month s/p 10 days of meropenem 3. UTI (urinary tract infection) Urine culture positive for Pseudomonas and Ente robacter s/p 10 days meropenem 4. Bacteremia due to Enterobacter species Continue meropenem Infectious disease following, appreciate input 5. Metabolic encephalopathy Resolved 6. H/O cardiac arrest Patient status post PEA, resolved 7. 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 Discussed with patient rega rding LP again, but states he still does not want at this time. Continue PT/OT 8. Abnormal MRI of head Could be related to CVA Repeat MRI 07/19/20 showed patchy perive ntricular white matter disease appears improved but not resolved since 06/26/20 and may have related to u nderlying metabolic or toxic disorder and/or vasculitis. 9. Acute systolic heart failure Resolved Cardiology following, appreciate input 10. Acute CVA (cerebrovascular accident) Suspected to be cardioembolic, patient found to have PFO Cardiology performed DOMINIK 08/17 in preparation fo r potential PFO closure. Continue medical management 11. Acute on chronic anemia Patient status post 2 units PRBCs Hemoglobin stable now. 12. Hyperkalemia 5.1 today, given lokelma -losartan on hold -monitor BMP daily 13. Hypertensive emergency resolved, treating essential HTN Cardiology on board. 14. Essential hypertension Continue nifedipine, labetalol, Imdur - Imdur uptitrated 15. Aortic dissection History of type B aortic dissection status post thoracic endovascular aortic repair at outside hospital Continue labetalol Manage blood pressure per cardiology 16. Multifocal pneumonia Continue meropenem 17. Acute respiratory failure with hypoxia Resolved, patient extubated prior to downgrade from ICU Now on room air Free Text DxA P Notes Free text DxA P notes: DVT prophylaxis: Heparin Dispo: PT/OT to re-evaluate patient who is now r equesting IRF. CM aware and working on finding IRF vs Personal jail at 1515 Electronically Signed by Raphael Davila MD on at 1231 RPT #:[id number] END OF REPORT 2020-08-20 09:17:00-00:[address] [facility] ([facility]) Nephrology Progress Note REPORT#:[id number] REPORT STATUS: Signed DATE:08/20/20 TIME: 916 PATIENT: JORGE GOINS UNIT #: [id number] ROOM/BED: [address] : 86 AGE: 35 SEX: M ATTEND: Raphael Davila MD ADM AUTHOR: Stevie Andersen R2 * ALL edits or amendments must be made on the [employer]idi[employer] document * Subjective Chief Complaint: Htn emergency, ams HPI: AFEBRILE, NO EVENTS, PRIMARY SERVICE LOOKING FOR PLACEMENT Review of Systems All systems rev neg: except as marked Objective General VS/I O: Vital Signs: Date Time Temp Pulse Resp B/P B/P Pulse O2 O2 F low FiO2 Mean Ox Delivery Rate 08/20 0737 36.8 72 18 133/75 94.4 100 08/20 0430 36.0 70 20 137/68 91.0 96 08/19 2350 37.0 68 20 162/89 113.1 100 08/19 1957 37.0 68 19 135/74 94.5 100 08/19 1607 69 14 125/65 85.2 100 08/19 1118 65 14 143/68 92.8 100 24 hour I O ending at 0700: 08/20 0700 08/19 1900 Intake Total 480 Output Total 1200 650 Balance -720 -650 Intake, Oral 480 Output, Urine 1200 650 PATIENT WEIGHT: Weight (lb): 176 Weight (oz): 9.44 Weight (kg): 80.100 Physical Exam General appearance: alert, awake, oriented ENT: moist mucous membranes Neck: no JVD, no masses or swelling Cardiovascular: normal heart sounds, regular rat e and rhythm Respiratory: aerating well, clear to auscultatio n Abdomen: normal bowel sounds, soft Extremities: no edema Musculoskeletal: decreased ROM 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 Skin: dry Results Findings/Data: Laboratory Tests 08/19 1650 Chemistry Sodium (137 - 145 mmol/L) 134 L Potassium (3.4 - 5.0 mmol/L) 5.0 Chloride (98 - 107 mmol/L) 101 Carbon Dioxide (22 - 30 mmol/L) 24 BUN (9 - 20 mg/dL) 24 H Creatinine (0.7 - 1.3 mg/dL) 0.7 Glomerular Filtr Rate (>60) 166 Glucose (74 - 106 mg/dL) 85 Calcium (8.4 - 10.2 mg/dL) 9.1 Total Bilirubin (0.2 - 1.3 mg/dL) 0.5 Conjugated Bilirubin (0 - 0.3 mg/dL) 0 Unconjugated Bilirubin (0 - 1.1 mg/dL) 0.4 AST (15 - 46 U/L) 33 ALT (0 - 34 U/L) 41 H Total Alk Phosphatase (38 - 126 U/L) 116 Total Protein (6.3 - 8.2 g/dL) 7.1 Albumin (3.5 - 5.0 g/dL) 3.7 Laboratory Tests 08/19 1650 Hematology WBC (5.0 - 12.0 x10 3/uL) 7.4 RBC (4.70 - 6.10 x10 6/uL) 2.74 L Hgb (14.0 - 18.0 g/dL) 8.1 L Hct (37.0 - 49.0 %) 25.8 L MCV (80 - 94 fL) 94 MCH (27 - 31 pg) 29.6 MCHC (33 - 37 g/dL) 31.4 L RDW (11.5 - 15.5 %) 18.2 H Plt Count (130 - 400 x10 3/uL) 367 MPV (9.4 - 16.4 fL) 9.4 Neut % (Auto) (43 - 65 %) 75.1 H Lymph % (Auto) (20.5 - 45.5 %) 14.3 L Citrus % (Auto) (5.5 - 11.7 %) 8.3 Eos % (Auto) (0.9 - 2.9 %) 0.8 L Baso % (Auto) (0.2 - 1.0 %) 0.7 Neut # (Auto) (2.2 - 4.8 x10 3/uL) 5.53 H Lymph # (Auto) (1.3 - 2.9 x10 3/uL) 1.05 L Citrus # (Auto) (0.3 - 0.8 x10 3/uL) 0.61 Eos # (Auto) (0.0 - 0.2 x10 3/uL) 0.06 Baso # (Auto) (0.0 - 0.1 x10 3/uL) 0.05 Immature Gran % (0.0 - 2.0 %) 0.8 Nucleated RBC % (0 - 1.0 %) 0.0 Diagnosis, Assessment Plan Hospital course to date: mr goins is a 35yo male with hisoty of AAA and htn who has had a prolonged hospitalization due to PEA a rrest, respiratory failure s/p intubation, multiple embolic strokes, new onset HFrEF and JENNIFER, now do wngraded from ICU given significant recovery. Nephro initially consulted for new onset jennifer. #JENNIFER w severe metabolic acidosis -resolved -eGFR stable -continue to monitor #enterobacter bacteremia-resolved #psa uti s/p abx #multifocal ischemic strokes #hfref-stable #htn -nifedipine, isosorbide #AAA recs; stable renal-white, dispo per primary Plan discussed with: patient, nurse at 1339 RPT #:[id number] END OF REPORT 2020-08-20 09:17:00-00:[address] [facility] ([facility]) Nephrology Progress Note REPORT#:[id number] REPORT STATUS: Signed DATE:08/20/20 TIME: 916 PATIENT: JORGE GOINS UNIT #: [id number] ROOM/BED: 3320-A : 86 AGE: 35 SEX: M ATTEND: Raphael Davila MD ADM AUTHOR: Stevie Andersen MD R2 * ALL edits or amendments must be made on the rimidi/computer document * Subjective Chief Complaint: Htn emergency, ams HPI: AFEBRILE, NO EVENTS, PRIMARY SERVICE LOOKING FOR PLACEMENT Review of Systems All systems rev neg: except as marked Objective General VS/I O: Vital Signs: Date Time Temp Pulse Resp B/P B/P Pulse O2 O2 F low FiO2 Mean Ox Delivery Rate 08/20 0737 36.8 72 18 133/75 94.4 100 08/20 0430 36.0 70 20 137/68 91.0 96 08/19 2350 37.0 68 20 162/89 113.1 100 08/19 1957 37.0 68 19 135/74 94.5 100 08/19 1607 69 14 125/65 85.2 100 08/19 1118 65 14 143/68 92.8 100 24 hour I O ending at 0700: 08/20 0700 08/19 1900 Intake Total 480 Output Total 1200 650 Balance -720 -650 Intake, Oral 480 Output, Urine 1200 650 PATIENT WEIGHT: Weight (lb): 176 Weight (oz): 9.44 Weight (kg): 80.100 Physical Exam General appearance: alert, awake, oriented ENT: moist mucous membranes Neck: no JVD, no masses or swelling Cardiovascular: normal heart sounds, regular rat e and rhythm Respiratory: aerating well, clear to auscultatio n Abdomen: normal bowel sounds, soft Extremities: no edema Musculoskeletal: decreased ROM 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 Skin: dry Results Findings/Data: Laboratory Tests 08/19 1650 Chemistry Sodium (137 - 145 mmol/L) 134 L Potassium (3.4 - 5.0 mmol/L) 5.0 Chloride (98 - 107 mmol/L) 101 Carbon Dioxide (22 - 30 mmol/L) 24 BUN (9 - 20 mg/dL) 24 H Creatinine (0.7 - 1.3 mg/dL) 0.7 Glomerular Filtr Rate (>60) 166 Glucose (74 - 106 mg/dL) 85 Calcium (8.4 - 10.2 mg/dL) 9.1 Total Bilirubin (0.2 - 1.3 mg/dL) 0.5 Conjugated Bilirubin (0 - 0.3 mg/dL) 0 Unconjugated Bilirubin (0 - 1.1 mg/dL) 0.4 AST (15 - 46 U/L) 33 ALT (0 - 34 U/L) 41 H Total Alk Phosphatase (38 - 126 U/L) 116 Total Protein (6.3 - 8.2 g/dL) 7.1 Albumin (3.5 - 5.0 g/dL) 3.7 Laboratory Tests 08/19 1650 Hematology WBC (5.0 - 12.0 x10 3/uL) 7.4 RBC (4.70 - 6.10 x10 6/uL) 2.74 L Hgb (14.0 - 18.0 g/dL) 8.1 L Hct (37.0 - 49.0 %) 25.8 L MCV (80 - 94 fL) 94 MCH (27 - 31 pg) 29.6 MCHC (33 - 37 g/dL) 31.4 L RDW (11.5 - 15.5 %) 18.2 H Plt Count (130 - 400 x10 3/uL) 367 MPV (9.4 - 16.4 fL) 9.4 Neut % (Auto) (43 - 65 %) 75.1 H Lymph % (Auto) (20.5 - 45.5 %) 14.3 L Citrus % (Auto) (5.5 - 11.7 %) 8.3 Eos % (Auto) (0.9 - 2.9 %) 0.8 L Baso % (Auto) (0.2 - 1.0 %) 0.7 Neut # (Auto) (2.2 - 4.8 x10 3/uL) 5.53 H Lymph # (Auto) (1.3 - 2.9 x10 3/uL) 1.05 L Citrus # (Auto) (0.3 - 0.8 x10 3/uL) 0.61 Eos # (Auto) (0.0 - 0.2 x10 3/uL) 0.06 Baso # (Auto) (0.0 - 0.1 x10 3/uL) 0.05 Immature Gran % (0.0 - 2.0 %) 0.8 Nucleated RBC % (0 - 1.0 %) 0.0 Diagnosis, Assessment Plan Hospital course to date: mr goins is a 35yo male with hisoty of AAA and htn who has had a prolonged hospitalization due to PEA a rrest, respiratory failure s/p intubation, multiple embolic strokes, new onset HFrEF and JENNIFER, now do wngraded from ICU given significant recovery. Nephro initially consulted for new onset jennifer. #JENNIFER w severe metabolic acidosis -resolved -eGFR stable -continue to monitor #enterobacter bacteremia-resolved #psa uti s/p abx #multifocal ischemic strokes #hfref-stable #htn -nifedipine, isosorbide #AAA recs; stable renal-white, dispo per primary Plan discussed with: patient, nurse at 1339 at 1714 RPT #:[id number] END OF REPORT 2020-08-19 15:48:00-00:[address] [facility] ([facility] Nephrology Progress Note REPORT#:[id number] REPORT STATUS: Signed DATE:08/19/20 TIME: 1548 PATIENT: JORGE GOINS UNIT #: [id number] ROOM/BED: [address] : 86 AGE: 35 SEX: M ATTEND: Raphael Davila MD ADM AUTHOR: Stevie Andersen R2 * ALL edits or amendments must be made on the rimidi/computer document * Subjective Chief Complaint: Htn emergency, ams HPI: NO EVENTS, FEELIN WELL AFEBRILE Review of Systems All systems rev neg: except as marked Objective General VS/I O: Vital Signs: Date Time Temp Pulse Resp B/P B/P Pulse O2 O2 F low FiO2 Mean Ox Delivery Rate 08/19 1118 65 14 143/68 92.8 100 08/19 0731 71 14 128/65 86.2 99 08/19 0403 37.0 108 19 107/51 69.9 93 08/19 0015 36.9 75 18 130/77 94.7 100 08/18 1937 36.7 76 19 108/64 78.8 100 08/18 1817 82 100/54 69.6 08/18 1735 65 202/101 135.0 08/18 1647 36.8 80 16 207/104 138.3 100 Room ai r 24 hour I O ending at 0700: 08/19 0700 08/18 1900 Intake Total 650 Output Total 1200 600 Balance -550 -600 Intake, Oral 650 Output, Urine 1200 600 PATIENT WEIGHT: Weight (lb): 176 Weight (oz): 9.44 Weight (kg): 80.100 Physical Exam General appearance: alert, awake, oriented ENT: moist mucous membranes Neck: no JVD, no masses or swelling Cardiovascular: normal heart sounds, regular rat e and rhythm Respiratory: aerating well, clear to auscultatio n Abdomen: normal bowel sounds, soft Extremities: no edema Musculoskeletal: decreased ROM 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 Skin: dry Diagnosis, Assessment Plan Hospital course to date: mr goins is a 35yo male with hisoty of AAA and htn who has had a prolonged hospitalization due to PEA a rrest, respiratory failure s/p intubation, multiple embolic strokes, new onset HFrEF and JENNIFER, now do wngraded from ICU given significant recovery. Nephro initially consulted for new onset jennifer. #JENNIFER w severe metabolic acidosis -resolved -eGFR stable -continue to monitor #enterobacter bacteremia #psa uti #multifocal ischemic strokes #hfref #htn -nifedipine, isosorbide #AAA recs; stable renal-white, dispo per primary Plan discussed with: patient, nurse Attestations Attestation needed: supervising physician (DR SALOMON OR) at 1550 RPT #:[id number] END OF REPORT 2020-08-19 15:48:00-00:00 [facility] Nephrology Progress Note REPORT#:[id number] REPORT STATUS: Signed DATE:08/19/20 TIME: 1548 PATIENT: JORGE GOINS UNIT #: [id number] ROOM/BED: [address] : 86 AGE: 35 SEX: M ATTEND: Raphael Davila MD ADM AUTHOR: Stevie Andersen R2 * ALL edits or amendments must be made on the el ectronic/computer document * Subjective Chief Complaint: Htn emergency, ams HPI: NO EVENTS, FEELIN WELL AFEBRILE Review of Systems All systems rev neg: except as marked Objective General VS/I O: Vital Signs: Date Time Temp Pulse Resp B/P B/P Pulse O2 O2 F low FiO2 Mean Ox Delivery Rate 08/19 1118 65 14 143/68 92.8 100 08/19 0731 71 14 128/65 86.2 99 08/19 0403 37.0 108 19 107/51 69.9 93 08/19 0015 36.9 75 18 130/77 94.7 100 08/18 1937 36.7 76 19 108/64 78.8 100 08/18 1817 82 100/54 69.6 08/18 1735 65 202/101 135.0 08/18 1647 36.8 80 16 207/104 138.3 100 Room ai r 24 hour I O ending at 0700: 08/19 0700 08/18 1900 Intake Total 650 Output Total 1200 600 Balance -550 -600 Intake, Oral 650 Output, Urine 1200 600 PATIENT WEIGHT: Weight (lb): 176 Weight (oz): 9.44 Weight (kg): 80.100 Physical Exam General appearance: alert, awake, oriented ENT: moist mucous membranes Neck: no JVD, no masses or swelling Cardiovascular: normal heart sounds, regular rat e and rhythm Respiratory: aerating well, clear to auscultatio n Abdomen: normal bowel sounds, soft Extremities: no edema Musculoskeletal: decreased ROM 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 Skin: dry Diagnosis, Assessment Plan Hospital course to date: mr goins is a 35yo male with hisoty of AAA and htn who has had a prolonged hospitalization due to PEA a rrest, respiratory failure s/p intubation, multiple embolic strokes, new onset HFrEF and JENNIFER, now do wngraded from ICU given significant recovery. Nephro initially consulted for new onset jennifer. #JENNIFER w severe metabolic acidosis -resolved -eGFR stable -continue to monitor #enterobacter bacteremia #psa uti #multifocal ischemic strokes #hfref #htn -nifedipine, isosorbide #AAA recs; stable renal-white, dispo per primary Plan discussed with: patient, nurse Attestations Attestation needed: supervising physician (DR AIME LONDONO) at 1550 at 9349 RPT #:[id number] END OF REPORT 2020-08-19 13:19:00-00:00 [facility] Hospitalist Progress Note REPORT#:[id number] REPORT STATUS: Signed DATE:08/19/20 TIME: 1319 PATIENT: JORGE GOINS UNIT #: [id number] ROOM/BED: [address] : 86 AGE: 35 SEX: M ATTEND: Raphael Davila MD ADM AUTHOR: Marquita Betancur * ALL edits or amendments must be made on the rimidi/computer document * Subjective Chief Complaint: No new c/o Pt medically ready for discharge Review of Systems Constitutional: Denies: generalized weakness. Respiratory: Denies: COATES (dyspnea on exertion), non productiv e cough, productive cough ( sputum), SOB. Cardiovascular: Denies: chest pain, COATES (dyspnea on exertion), e benton. GI: Denies: abdominal pain, constipation, diarrhea, nausea, vomiting. Neuro: Reports: focal weakness (BLE). All systems rev neg: except as marked Objective General VS/I O: Vital Signs: Date Time Temp Pulse Resp B/P B/P Pulse O2 O2 F low FiO2 Mean Ox Delivery Rate 08/19 1118 65 14 143/68 92.8 100 08/19 0731 71 14 128/65 86.2 99 08/19 0403 37.0 108 19 107/51 69.9 93 08/19 0015 36.9 75 18 130/77 94.7 100 08/18 1937 36.7 76 19 108/64 78.8 100 08/18 1817 82 100/54 69.6 08/18 1735 65 202/101 135.0 08/18 1647 36.8 80 16 207/104 138.3 100 Room ai r 24 hour I O ending at 0700: 08/19 0700 08/18 1900 Intake Total 650 Output Total 1200 600 Balance -550 -600 Intake, Oral 650 Output, Urine 1200 600 PATIENT WEIGHT: Weight (lb): 176 Weight (oz): 9.44 Weight (kg): 80.100 Medications: Active Meds + DC'd Last 24 Hrs Hydralazine HCl 10 MG Q6H PRN PRN IV Isosorbide Mononitrate 40 MG BID PO (CKD) Hydrocodone Bitart/Acetaminophen 1 TAB Q8H PRN P RN PO Magnesium 100 ML ASDIR PRN IV Magnesium Sulfate 50 ML ASDIR PRN IV Magnesium Sulfate 100 ML ASDIR PRN IV Nifedipine 30 MG Q6H PO Meropenem 500 MG Q6H IV Sterile Water 10 ML Collagenase 1 APPLIC DAILY TOPICAL Aspirin 81 MG DAILY PO Atorvastatin Calcium 40 MG DAILY PO Acetaminophen 650 MG Q4H PRN PRN PO Famotidine 20 MG DAILY PO Labetalol HCl 600 MG Q8HR PO Heparin Sodium (Porcine) 5,000 UNIT Q12HR SUBQ Dextrose/Water 25 ML ASDIR PRN IV Glucagon 1 MG ASDIR PRN IM Insulin Human Lispro LOW DOSE SCALE ASDIR SUBQ Nutrition assessment: The data set between the solid lines has been im ported from the dietitian's assessment. Any exceptions have been noted under Provider comments. BMI Calculated: 24.6 Nutrition related diagnosis: Overweight Nutrition diagnosis details: BMI 25-29.9 Nutrition problem: INCREASED PROTEIN NEEDS Nutrition etiology: WOUND HEALING Nutrition signs and symptoms: PT W/ MULTIPLE STA GE WOUNDS. Nutrition prescription: -RECOMMEND CHANGING DIET TO CARDIAC (NO RENAL RESTRICTION NEEDS D/T JENNIFER RE SOLVED) -RECOMMEND D/C ENSURE ENLIVE D/T PT REFUSED, GOOD APPETITE -RECOMMEND ANGELIA BID TO ND OMOTE WOUND HEALING -RD TO F/U PER FNS PROTOCOL Dietitian name: Ester Cabrera RD LD Assessment completed: 08/18/20 Provider comments on imported dietitian assessme nt: Physical Exam General appearance: alert, awake Head/Eyes: atraumatic Cardiovascular: normal heart sounds, regular rat e rhythm Respiratory: aerating well, clear to auscultatio n Abdomen: non-tender, normal bowel sounds, soft Extremities: no clubbing 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, LE weakness Results Results: labs reviewed, vital signs stable Diagnosis, Assessment Plan Problem List/A P: 1. JENNIFER (acute kidney injury) Creatinine stable. nephrology following. 2. Sepsis Continue Zuñiga change every month s/p 10 days of meropenem 3. UTI (urinary tract infection) Urine culture positive for Pseudomonas and Ente robacter s/p 10 days meropenem 4. Bacteremia due to Enterobacter species Continue meropenem Infectious disease following, appreciate input 5. Metabolic encephalopathy Resolved 6. H/O cardiac arrest Patient status post PEA, resolved 7. 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 Discussed with patient rega rding LP again, but states he still does not want at this time. Continue PT/OT 8. Abnormal MRI of head Could be related to CVA Repeat MRI 07/19/20 showed patchy perive ntricular white matter disease appears improved but not resolved since 06/26/20 and may have related to u nderlying metabolic or toxic disorder and/or vasculitis. 9. Acute systolic heart failure Resolved Cardiology following, appreciate input 10. Acute CVA (cerebrovascular accident) Suspected to be cardioembolic, patient found to have PFO Cardiology performed DOMINIK 08/17 in preparation fo r potential PFO closure. Continue medical management 11. Acute on chronic anemia Patient status post 2 units PRBCs Hemoglobin stable now. 12. Hyperkalemia 5.1 today, given lokelma -losartan on hold -monitor BMP daily 13. Hypertensive emergency resolved, treating essential HTN Cardiology on board. 14. Essential hypertension Continue nifedipine, labetalol, Imdur - Imdur uptitrated 15. Aortic dissection History of type B aortic dissection status post thoracic endovascular aortic repair at outside hospital Continue labetalol Manage blood pressure per cardiology 16. Multifocal pneumonia Continue meropenem 17. Acute respiratory failure with hypoxia Resolved, patient extubated prior to downgrade from ICU Now on room air Free Text DxA P Notes Free text DxA P notes: DVT prophylaxis: Heparin Dispo: Patient fitted for pe rsonalized WC and was delivered to bedside. Patient no longer has place to go (ex-girlfriend 's home), so will pursue other housing options. CM aware and adjusting d/c plan. at 1324 RPT #:[id number] END OF REPORT 2020-08-19 13:19:00-00:00 [facility] Hospitalist Progress Note REPORT#:[id number] REPORT STATUS: Signed DATE:08/19/20 TIME: 1319 PATIENT: JORGE GOINS UNIT #: [id number] ROOM/BED: [address] : [birth year] AGE: 35 SEX: M ATTEND: Raphael Davila MD ADM AUTHOR: Marquita Betancur * ALL edits or amendments must be made on the rimidi/computer document * Subjective Chief Complaint: No new c/o Pt medically ready for discharge Review of Systems Constitutional: Denies: generalized weakness. Respiratory: Denies: COATES (dyspnea on exertion), non productiv e cough, productive cough ( sputum), SOB. Cardiovascular: Denies: chest pain, COATES (dyspnea on exertion), e benton. GI: Denies: abdominal pain, constipation, diarrhea, nausea, vomiting. Neuro: Reports: focal weakness (BLE). All systems rev neg: except as marked Objective General VS/I O: Vital Signs: Date Time Temp Pulse Resp B/P B/P Pulse O2 O2 F low FiO2 Mean Ox Delivery Rate 08/19 1118 65 14 143/68 92.8 100 08/19 0731 71 14 128/65 86.2 99 08/19 0403 37.0 108 19 107/51 69.9 93 08/19 0015 36.9 75 18 130/77 94.7 100 08/18 1937 36.7 76 19 108/64 78.8 100 08/18 1817 82 100/54 69.6 08/18 1735 65 202/101 135.0 08/18 1647 36.8 80 16 207/104 138.3 100 Room ai r 24 hour I O ending at 0700: 08/19 0700 08/18 1900 Intake Total 650 Output Total 1200 600 Balance -550 -600 Intake, Oral 650 Output, Urine 1200 600 PATIENT WEIGHT: Weight (lb): 176 Weight (oz): 9.44 Weight (kg): 80.100 Medications: Active Meds + DC'd Last 24 Hrs Hydralazine HCl 10 MG Q6H PRN PRN IV Isosorbide Mononitrate 40 MG BID PO (CKD) Hydrocodone Bitart/Acetaminophen 1 TAB Q8H PRN P RN PO Magnesium 100 ML ASDIR PRN IV Magnesium Sulfate 50 ML ASDIR PRN IV Magnesium Sulfate 100 ML ASDIR PRN IV Nifedipine 30 MG Q6H PO Meropenem 500 MG Q6H IV Sterile Water 10 ML Collagenase 1 APPLIC DAILY TOPICAL Aspirin 81 MG DAILY PO Atorvastatin Calcium 40 MG DAILY PO Acetaminophen 650 MG Q4H PRN PRN PO Famotidine 20 MG DAILY PO Labetalol HCl 600 MG Q8HR PO Heparin Sodium (Porcine) 5,000 UNIT Q12HR SUBQ Dextrose/Water 25 ML ASDIR PRN IV Glucagon 1 MG ASDIR PRN IM Insulin Human Lispro LOW DOSE SCALE ASDIR SUBQ Nutrition assessment: The data set between the solid lines has been im ported from the dietitian's assessment. Any exceptions have been noted under Provider comments. BMI Calculated: 24.6 Nutrition related diagnosis: Overweight Nutrition diagnosis details: BMI 25-29.9 Nutrition problem: INCREASED PROTEIN NEEDS Nutrition etiology: WOUND HEALING Nutrition signs and symptoms: PT W/ MULTIPLE STA GE WOUNDS. Nutrition prescription: -RECOMMEND CHANGING DIET TO CARDIAC (NO RENAL RESTRICTION NEEDS D/T JENNIFER RE SOLVED) -RECOMMEND D/C ENSURE ENLIVE D/T PT REFUSED, GOOD APPETITE -RECOMMEND ANGELIA BID TO ND OMOTE WOUND HEALING -RD TO F/U PER FNS PROTOCOL Dietitian name: Ester Cabrera RD LD Assessment completed: 08/18/20 Provider comments on imported dietitian assessme nt: Physical Exam General appearance: alert, awake Head/Eyes: atraumatic Cardiovascular: normal heart sounds, regular rat e rhythm Respiratory: aerating well, clear to auscultatio n Abdomen: non-tender, normal bowel sounds, soft Extremities: no clubbing 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, LE weakness Results Results: labs reviewed, vital signs stable Diagnosis, Assessment Plan Problem List/A P: 1. JENNIFER (acute kidney injury) Creatinine stable. nephrology following. 2. Sepsis Continue Zuñiga change every month s/p 10 days of meropenem 3. UTI (urinary tract infection) Urine culture positive for Pseudomonas and Ente robacter s/p 10 days meropenem 4. Bacteremia due to Enterobacter species Continue meropenem Infectious disease following, appreciate input 5. Metabolic encephalopathy Resolved 6. H/O cardiac arrest Patient status post PEA, resolved 7. 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 Discussed with patient laurenta jonnahtaning LP again, but states he still does not want at this time. Continue PT/OT 8. Abnormal MRI of head Could be related to CVA Repeat MRI 07/19/20 showed patchy perive ntricular white matter disease appears improved but not resolved since 06/26/20 and may have related to u nderlying metabolic or toxic disorder and/or vasculitis. 9. Acute systolic heart failure Resolved Cardiology following, appreciate input 10. Acute CVA (cerebrovascular accident) Suspected to be cardioembolic, patient found to have PFO Cardiology performed DOMINIK 08/17 in preparation fo r potential PFO closure. Continue medical management 11. Acute on chronic anemia Patient status post 2 units PRBCs Hemoglobin stable now. 12. Hyperkalemia 5.1 today, given lokelma -losartan on hold -monitor BMP daily 13. Hypertensive emergency resolved, treating essential HTN Cardiology on board. 14. Essential hypertension Continue nifedipine, labetalol, Imdur - Imdur uptitrated 15. Aortic dissection History of type B aortic dissection status post thoracic endovascular aortic repair at outside hospital Continue labetalol Manage blood pressure per cardiology 16. Multifocal pneumonia Continue meropenem 17. Acute respiratory failure with hypoxia Resolved, patient extubated prior to downgrade from ICU Now on room air Free Text DxA P Notes Free text DxA P notes: DVT prophylaxis: Heparin Dispo: Patient fitted for pe rsonalized WC and was delivered to bedside. Patient no longer has place to go (ex-girlfriend 's home), so will pursue other housing options. CM aware and adjusting d/c plan. at 1324 Electronically Signed by Raphael Davila MD on at 1825 RPT #:[id number] END OF REPORT 2020-08-18 16:16:00-00:00 [facility] Hospitalist Progress Note REPORT#:[id number] REPORT STATUS: Signed DATE:08/18/20 TIME: 1616 PATIENT: JORGE GOINS UNIT #: [id number] ROOM/BED: [address] : 86 AGE: 35 SEX: M ATTEND: Raphael Davila MD ADM AUTHOR: Marquita Betancur * ALL edits or amendments must be made on the rimidi/computer document * Subjective Chief Complaint: No new c/o Patient fit for personalized WC today Review of Systems Constitutional: Denies: generalized weakness. Respiratory: Denies: COATES (dyspnea on exertion), SOB. Cardiovascular: Denies: chest pain, edema. GI: Denies: abdominal pain, constipation, diarrhea. Neuro: Reports: focal weakness (BLE). All systems rev neg: except as marked Objective General VS/I O: Vital Signs: Date Time Temp Pulse Resp B/P B/P Pulse O2 O2 F low FiO2 Mean Ox Delivery Rate 08/18 1152 36.8 77 16 110/61 77.1 100 Room air 08/18 0751 37.2 67 16 186/93 123.9 99 Room air 08/18 0351 37.0 65 20 127/69 88.4 100 08/18 0351 37.0 65 20 127/69 88.4 100 08/179 36.0 77 18 147/84 105.0 99 08/173 36.8 70 18 123/67 85.5 100 08/17 1649 37.0 66 18 142/67 92.2 100 Room air 24 hour I O ending at 0700: 08/18 0700 08/17 1900 Intake Total Output Total 750 Balance -750 Output, Urine 750 PATIENT WEIGHT: Weight (lb): 176 Weight (oz): 9.44 Weight (kg): 80.100 Medications: Active Meds + DC'd Last 24 Hrs Isosorbide Mononitrate 40 MG BID PO (CKD) Propofol 600 MG .STK-MED ONE ZCHARGE (DC) Sodium Zirconium Cyclosilicate 10 GM ONCE ONE PO (DC) Hydrocodone Bitart/Acetaminophen 1 TAB Q8H PRN P RN PO Magnesium 100 ML ASDIR PRN IV Magnesium Sulfate 50 ML ASDIR PRN IV Magnesium Sulfate 100 ML ASDIR PRN IV Nifedipine 30 MG Q6H PO Meropenem 500 MG Q6H IV Sterile Water 10 ML Collagenase 1 APPLIC DAILY TOPICAL Aspirin 81 MG DAILY PO Atorvastatin Calcium 40 MG DAILY PO Isosorbide Mononitrate 30 MG BID PO (DC) Acetaminophen 650 MG Q4H PRN PRN PO Famotidine 20 MG DAILY PO Labetalol HCl 600 MG Q8HR PO Heparin Sodium (Porcine) 5,000 UNIT Q12HR SUBQ Dextrose/Water 25 ML ASDIR PRN IV Glucagon 1 MG ASDIR PRN IM Insulin Human Lispro LOW DOSE SCALE ASDIR SUBQ Nutrition assessment: The data set between the solid lines has been im ported from the dietitian's assessment. Any exceptions have been noted under Provider comments. BMI Calculated: 24.6 Nutrition related diagnosis: Overweight Nutrition diagnosis details: BMI 25-29.9 Nutrition problem: INCREASED PROTEIN NEEDS Nutrition etiology: WOUND HEALING Nutrition signs and symptoms: PT W/ MULTIPLE STA GE WOUNDS. Nutrition prescription: -RECOMMEND CHANGING DIET TO CARDIAC (NO RENAL RESTRICTION NEEDS D/T JENNIFER RE SOLVED) -RECOMMEND D/C ENSURE ENLIVE D/T PT REFUSED, GOOD APPETITE -RECOMMEND ANGELIA BID TO ND OMOTE WOUND HEALING -RD TO F/U PER FNS PROTOCOL Dietitian name: Ester Cabrera RD LD Assessment completed: 08/18/20 Provider comments on imported dietitian assessme nt: Physical Exam General appearance: alert, awake Head/Eyes: atraumatic Cardiovascular: normal heart sounds, regular rat e rhythm Respiratory: aerating well, clear to auscultatio n Abdomen: non-tender, normal bowel sounds, soft Extremities: no clubbing 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, LE weakness Results Findings/Data: Laboratory Tests 08/18 532 Chemistry Sodium (137 - 145 mmol/L) 138 Potassium (3.4 - 5.0 mmol/L) 5.0 Chloride (98 - 107 mmol/L) 104 Carbon Dioxide (22 - 30 mmol/L) 26 BUN (9 - 20 mg/dL) 21 H Creatinine (0.7 - 1.3 mg/dL) 0.8 Glomerular Filtr Rate (>60) 143 Glucose (74 - 106 mg/dL) 90 Calcium (8.4 - 10.2 mg/dL) 9.0 Total Bilirubin (0.2 - 1.3 mg/dL) 0.6 Conjugated Bilirubin (0 - 0.3 mg/dL) 0 Unconjugated Bilirubin (0 - 1.1 mg/dL) 0.5 AST (15 - 46 U/L) 48 H ALT (0 - 34 U/L) 56 H Total Alk Phosphatase (38 - 126 U/L) 115 Total Protein (6.3 - 8.2 g/dL) 7.1 Albumin (3.5 - 5.0 g/dL) 3.6 Laboratory Tests 08/18 532 Hematology WBC (5.0 - 12.0 x10 3/uL) 6.2 RBC (4.70 - 6.10 x10 6/uL) 2.79 L Hgb (14.0 - 18.0 g/dL) 8.4 L Hct (37.0 - 49.0 %) 26.1 L MCV (80 - 94 fL) 94 MCH (27 - 31 pg) 30.1 MCHC (33 - 37 g/dL) 32.2 L RDW (11.5 - 15.5 %) 18.4 H Plt Count (130 - 400 x10 3/uL) 365 MPV (9.4 - 16.4 fL) 9.4 Neut % (Auto) (43 - 65 %) 76.6 H Lymph % (Auto) (20.5 - 45.5 %) 12.6 L Citrus % (Auto) (5.5 - 11.7 %) 7.6 Eos % (Auto) (0.9 - 2.9 %) 1.3 Baso % (Auto) (0.2 - 1.0 %) 0.5 Neut # (Auto) (2.2 - 4.8 x10 3/uL) 4.76 Lymph # (Auto) (1.3 - 2.9 x10 3/uL) 0.78 L Citrus # (Auto) (0.3 - 0.8 x10 3/uL) 0.47 Eos # (Auto) (0.0 - 0.2 x10 3/uL) 0.08 Baso # (Auto) (0.0 - 0.1 x10 3/uL) 0.03 Immature Gran % (0.0 - 2.0 %) 1.4 Nucleated RBC % (0 - 1.0 %) 0.0 Results: labs reviewed, vital signs stable Diagnosis, Assessment Plan Problem List/A P: 1. JENNIFER (acute kidney injury) Creatinine stable. nephrology following. 2. Sepsis Continue Zuñiga change every month 10 days of meropenem, last dose today 08/18/2020 per ID recommendations. Trial of void failed Zuñiga exchanged. 3. UTI (urinary tract infection) Urine culture positive for Pseudomonas and Ente robacter Continue meropenem for 10 days, last day today 4. Bacteremia due to Enterobacter species Continue meropenem Infectious disease following, appreciate input 5. Metabolic encephalopathy Resolved 6. H/O cardiac arrest Patient status post PEA, resolved 7. 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 Spoke with patient about get ting the LP again patient still states he will think about it some more. Continue PT/OT 8. Abnormal MRI of head Could be related to CVA Repeat MRI 07/19/20 showed patchy perive ntricular white matter disease appears improved but not resolved since 06/26/20 and may have related to u nderlying metabolic or toxic disorder and/or vasculitis. 9. Acute systolic heart failure Resolved Cardiology following, appreciate input 10. Acute CVA (cerebrovascular accident) Suspected to be cardioembolic, patient found to have PFO Cardiology performed DOMINIK 08/17 in preparation fo r potential PFO closure. Continue medical management 11. Acute on chronic anemia Patient status post 2 units PRBCs Hemoglobin stable now. 12. Hyperkalemia 5.1 today, given lokelma -losartan on hold -monitor BMP daily 13. Hypertensive emergency resolved, treating essential HTN Cardiology on board. 14. Essential hypertension Continue nifedipine, labetalol, Imdur - Imdur uptitrated 15. Aortic dissection History of type B aortic dissection status post thoracic endovascular aortic repair at outside hospital Continue labetalol Manage blood pressure per cardiology 16. Multifocal pneumonia Continue meropenem 17. Acute respiratory failure with hypoxia Resolved, patient extubated prior to downgrade from ICU Now on room air Free Text DxA P Notes Free text DxA P notes: DVT prophylaxis :Heparin Dispo: Patient fitted for personalized W C today, girlfriend will need teaching for assistance. Patient otherwise medically stab le for discharge when WC delivered and girlfriend taught. at 1619 RPT #:[id number] END OF REPORT 2020-08-18 16:16:00-00:00 [facility] Hospitalist Progress Note REPORT#:[id number] REPORT STATUS: Signed DATE:08/18/20 TIME: 1616 PATIENT: JORGE GOINS UNIT #: [id number] ROOM/BED: [address] : 86 AGE: 35 SEX: M ATTEND: Raphael Davila MD ADM AUTHOR: Marquita Betancur * ALL edits or amendments must be made on the el [employer]/computer document * Subjective Chief Complaint: No new c/o Patient fit for personalized WC today Review of Systems Constitutional: Denies: generalized weakness. Respiratory: Denies: COATES (dyspnea on exertion), SOB. Cardiovascular: Denies: chest pain, edema. GI: Denies: abdominal pain, constipation, diarrhea. Neuro: Reports: focal weakness (BLE). All systems rev neg: except as marked Objective General VS/I O: Vital Signs: Date Time Temp Pulse Resp B/P B/P Pulse O2 O2 Flow FiO2 Mean Ox Delivery Rate 08/18 1152 36.8 77 16 110/61 77.1 100 Room air 08/18 0751 37.2 67 16 186/93 123.9 99 Room air 08/18 0351 37.0 65 20 127/69 88.4 100 08/18 0351 37.0 65 20 127/69 88.4 100 08/17 2329 36.0 77 18 147/84 105.0 99 08/17 1953 36.8 70 18 123/67 85.5 100 08/17 1649 37.0 66 18 142/67 92.2 100 Room air 24 hour I O ending at 0700: 08/18 0700 08/17 1900 Intake Total Output Total 750 Balance -750 Output, Urine 750 PATIENT WEIGHT: Weight (lb): 176 Weight (oz): 9.44 Weight (kg): 80.100 Medications: Active Meds + DC'd Last 24 Hrs Isosorbide Mononitrate 40 MG BID PO (CKD) Propofol 600 MG .STK-MED ONE ZCHARGE (DC) Sodium Zirconium Cyclosilicate 10 GM ONCE ONE PO (DC) Hydrocodone Bitart/Acetaminophen 1 TAB Q8H PRN P RN PO Magnesium 100 ML ASDIR PRN IV Magnesium Sulfate 50 ML ASDIR PRN IV Magnesium Sulfate 100 ML ASDIR PRN IV Nifedipine 30 MG Q6H PO Meropenem 500 MG Q6H IV Sterile Water 10 ML Collagenase 1 APPLIC DAILY TOPICAL Aspirin 81 MG DAILY PO Atorvastatin Calcium 40 MG DAILY PO Isosorbide Mononitrate 30 MG BID PO (DC) Acetaminophen 650 MG Q4H PRN PRN PO Famotidine 20 MG DAILY PO Labetalol HCl 600 MG Q8HR PO Heparin Sodium (Porcine) 5,000 UNIT Q12HR SUBQ Dextrose/Water 25 ML ASDIR PRN IV Glucagon 1 MG ASDIR PRN IM Insulin Human Lispro LOW DOSE SCALE ASDIR SUBQ Nutrition assessment: The data set between the solid lines has been im ported from the dietitian's assessment. Any exceptions have been noted under Provider comments. BMI Calculated: 24.6 Nutrition related diagnosis: Overweight Nutrition diagnosis details: BMI 25-29.9 Nutrition problem: INCREASED PROTEIN NEEDS Nutrition etiology: WOUND HEALING Nutrition signs and symptoms: PT W/ MULTIPLE STA GE WOUNDS. Nutrition prescription: -RECOMMEND CHANGING DIET TO CARDIAC (NO RENAL RESTRICTION NEEDS D/T JENNIFER RE SOLVED) -RECOMMEND D/C ENSURE ENLIVE D/T PT REFUSED, GOOD APPETITE -RECOMMEND ANGELIA BID TO ND OMOTE WOUND HEALING -RD TO F/U PER FNS PROTOCOL Dietitian name: JONNATHAN Fine Assessment completed: 08/18/20 Provider comments on imported dietitian assessme nt: Physical Exam General appearance: alert, awake Head/Eyes: atraumatic Cardiovascular: normal heart sounds, regular rat e rhythm Respiratory: aerating well, clear to auscultatio n Abdomen: non-tender, normal bowel sounds, soft Extremities: no clubbing 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, LE weakness Results Findings/Data: Laboratory Tests 08/18 0533 Chemistry Sodium (137 - 145 mmol/L) 138 Potassium (3.4 - 5.0 mmol/L) 5.0 Chloride (98 - 107 mmol/L) 104 Carbon Dioxide (22 - 30 mmol/L) 26 BUN (9 - 20 mg/dL) 21 H Creatinine (0.7 - 1.3 mg/dL) 0.8 Glomerular Filtr Rate (>60) 143 Glucose (74 - 106 mg/dL) 90 Calcium (8.4 - 10.2 mg/dL) 9.0 Total Bilirubin (0.2 - 1.3 mg/dL) 0.6 Conjugated Bilirubin (0 - 0.3 mg/dL) 0 Unconjugated Bilirubin (0 - 1.1 mg/dL) 0.5 AST (15 - 46 U/L) 48 H ALT (0 - 34 U/L) 56 H Total Alk Phosphatase (38 - 126 U/L) 115 Total Protein (6.3 - 8.2 g/dL) 7.1 Albumin (3.5 - 5.0 g/dL) 3.6 Laboratory Tests 08/18 0533 Hematology WBC (5.0 - 12.0 x10 3/uL) 6.2 RBC (4.70 - 6.10 x10 6/uL) 2.79 L Hgb (14.0 - 18.0 g/dL) 8.4 L Hct (37.0 - 49.0 %) 26.1 L MCV (80 - 94 fL) 94 MCH (27 - 31 pg) 30.1 MCHC (33 - 37 g/dL) 32.2 L RDW (11.5 - 15.5 %) 18.4 H Plt Count (130 - 400 x10 3/uL) 365 MPV (9.4 - 16.4 fL) 9.4 Neut % (Auto) (43 - 65 %) 76.6 H Lymph % (Auto) (20.5 - 45.5 %) 12.6 L Citrus % (Auto) (5.5 - 11.7 %) 7.6 Eos % (Auto) (0.9 - 2.9 %) 1.3 Baso % (Auto) (0.2 - 1.0 %) 0.5 Neut # (Auto) (2.2 - 4.8 x10 3/uL) 4.76 Lymph # (Auto) (1.3 - 2.9 x10 3/uL) 0.78 L Citrus # (Auto) (0.3 - 0.8 x10 3/uL) 0.47 Eos # (Auto) (0.0 - 0.2 x10 3/uL) 0.08 Baso # (Auto) (0.0 - 0.1 x10 3/uL) 0.03 Immature Gran % (0.0 - 2.0 %) 1.4 Nucleated RBC % (0 - 1.0 %) 0.0 Results: labs reviewed, vital signs stable Diagnosis, Assessment Plan Problem List/A P: 1. JENNIFER (acute kidney injury) Creatinine stable. nephrology following. 2. Sepsis Continue Zuñiga change every month 10 days of meropenem, last dose today 08/18/2020 per ID recommendations. Trial of void failed Zuñiga exchanged. 3. UTI (urinary tract infection) Urine culture positive for Pseudomonas and Ente robacter Continue meropenem for 10 days, last day today 4. Bacteremia due to Enterobacter species Continue meropenem Infectious disease following, appreciate input 5. Metabolic encephalopathy Resolved 6. H/O cardiac arrest Patient status post PEA, resolved 7. 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 Spoke with patient about get ting the LP again patient still states he will think about it some more. Continue PT/OT 8. Abnormal MRI of head Could be related to CVA Repeat MRI 07/19/20 showed patchy perive ntricular white matter disease appears improved but not resolved since 06/26/20 and may have related to u nderlying metabolic or toxic disorder and/or vasculitis. 9. Acute systolic heart failure Resolved Cardiology following, appreciate input 10. Acute CVA (cerebrovascular accident) Suspected to be cardioembolic, patient found to have PFO Cardiology performed DOMINIK 08/17 in preparation fo r potential PFO closure. Continue medical management 11. Acute on chronic anemia Patient status post 2 units PRBCs Hemoglobin stable now. 12. Hyperkalemia 5.1 today, given lokelma -losartan on hold -monitor BMP daily 13. Hypertensive emergency resolved, treating essential HTN Cardiology on board. 14. Essential hypertension Continue nifedipine, labetalol, Imdur - Imdur uptitrated 15. Aortic dissection History of type B aortic dissection status post thoracic endovascular aortic repair at outside hospital Continue labetalol Manage blood pressure per cardiology 16. Multifocal pneumonia Continue meropenem 17. Acute respiratory failure with hypoxia Resolved, patient extubated prior to downgrade from ICU Now on room air Free Text DxA P Notes Free text DxA P notes: DVT prophylaxis :Heparin Dispo: Patient fitted for personalized W C today, girlfriend will need teaching for assistance. Patient otherwise medically stab le for discharge when WC delivered and girlfriend taught. at 1619 Electronically Signed by Raphael Davila MD on at 1298 RPT #:[id number] END OF REPORT 2020-08-18 10:17:00-00:[address] [facility] ([facility]) Cardiology Progress Note REPORT#:[id number] REPORT STATUS: Signed DATE:08/18/20 TIME: 1017 PATIENT: JORGE GOINS UNIT #: [id number] [address] AGE: 35 SEX: M ATTEND: Raphael Davila MD ADM AUTHOR: Abhi Ortiz DO * ALL edits or amendments must be made on the [employer]/computer document * Subjective Chief Complaint: Denies complaints. Objective General VS/I O: 24 hour I O ending at 0700: 08/18 0700 08/17 1900 Intake Total Output Total 750 Balance -750 Output, Urine 750 Vital Signs: Date Time Temp Pulse Resp B/P B/P Pulse O2 O2 F low FiO2 Mean Ox Delivery Rate 08/18 0751 99.0 67 16 186/93 123.9 99 Room air 08/18 0351 98.6 65 20 127/69 88.4 100 08/18 0351 98.6 65 20 127/69 88.4 100 08/17 2329 96.8 77 18 147/84 105.0 99 08/17 1953 98.2 70 18 123/67 85.5 100 08/17 1649 98.6 66 18 142/67 92.2 100 Room air 08/17 1200 98.2 64 18 186/87 120.0 100 Room air PATIENT WEIGHT: Weight (lb): 176 Weight (oz): 9.44 Weight (kg): 80.100 Physical Exam General appearance: alert, awake, oriented Head/Eyes: atraumatic, EOMI, normocephalic, PERR L ENT: moist mucosal membranes, normal nose Neck: non-tender, supple/no meningismus Cardiovascular: CV assessment: regular rate and rhythm, normal heart sounds Respiratory: clear to auscultation, no distress Abdomen: soft, non-tender, normal bowel sounds Upper extremity: UE assessment: normal capillary refill, normal temperature, no edema Lower extremity: LE assessment: normal capillary refill, normal temperature, no edema Musculoskeletal: normal inspection, bilateral lo wer ext paralysis 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, oriented X 3, normal speech Skin: dry Lymphatics: axilla normal, inguinal normal, neck normal, no lymphadenopathy Psychiatry: normal judgment/insight, normal mood Diagnosis, Assessment Plan Free Text DxA P Notes Free Text DxA P Notes: 1. Hypertensive urgency/emergency - presented with severely elevated BP requiring 2 IV infusions, subsequently suffered PEA cardiac arrest - BP control improved - cont hydralazine 100mg Q8H, labetalol 600mg Q 8H - nifedipine 30mg QID, losartan held d/t hyperK 2. Cardiac arrest - PEA in etiology, pt became hypothermic and fan bsequently bradycardic 3. Type B aortic dissection s/p EVAR - has residual descending aortic dissection ext ending into iliacs. No evidence of rupture on CTA. Reviewed by vascular surgery - appreciate assitance - optimal BP Control as above 4. Acute on chronic systolic heart failure -Improved significantly 5. Shock - resolved 6. JENNIFER on CKD - improved Patient has not received dialysis in some time 7. Acute hypoxic respiratory failure - resolved - trach removed 8. Stroke - questionable stroke but improvement on repeat MRI MRI (06/26/20) - Small regions of restricted diff usion within the left frontal lobe and left occipital lobe, concerning for acute infarc ts. Abnormal patchy periventricular/deep white matter T2/FLA IR hyperintensities within the frontal lobes and parietal lobes, which are nonspecific. MRI (07/19/20) - No evidence of acute ischemia. Previously seen areas restricted diffusion on the longer present with a correspon ding abnormal T2/FLAIR signal signal showing significant improvement. Patchy p eriventricular white matter disease appears improved but not resolve d since 06/26/20 and may have related to underlying metabolic or toxic disorder and/or va sculitis. --- DOMINIK completed - no inter atrial shunt noted by color flow imaging and bubble study 9. Bilateral lower extremity weakness - critical illness myopathy vs GBS - prev refused lumbar puncture for further eval Will sign off. F.u in clinic for HTN managment. [facility] Cardiology Electronically Signed by Abhi Ortiz DO on 08/18 at 1018 RPT #:[id number] END OF REPORT 2020-08-18 09:05:00-00:[address] [facility] ([facility]) Nephrology Progress Note REPORT#:[id number] REPORT STATUS: Signed DATE:08/18/20 TIME: 904 PATIENT: JORGE GOINS UNIT #: [id number] ROOM/BED: [address] : 86 AGE: 35 SEX: M ATTEND: Raphael Davila MD ADM AUTHOR: Stevie Andersen R2 * ALL edits or amendments must be made on the el [employer]/computer document * Subjective Chief Complaint: Htn emergency, ams HPI: no overnight events, feeling well, tolerating po well, afebrile, bp moslty in 120-140s, on room air Review of Systems All systems rev neg: except as marked Objective General VS/I O: Vital Signs: Date Time Temp Pulse Resp B/P B/P Pulse O2 O2 F low FiO2 Mean Ox Delivery Rate 08/18 0751 37.2 67 16 186/93 123.9 99 Room air 08/18 0351 37.0 65 20 127/69 88.4 100 08/18 0351 37.0 65 20 127/69 88.4 100 08/17 2329 36.0 77 18 147/84 105.0 99 08/17 1953 36.8 70 18 123/67 85.5 100 08/17 1649 37.0 66 18 142/67 92.2 100 Room air 08/17 1200 36.8 64 18 186/87 120.0 100 Room air 24 hour I O ending at 0700: 08/18 0700 08/17 1900 Intake Total Output Total 750 Balance -750 Output, Urine 750 PATIENT WEIGHT: Weight (lb): 176 Weight (oz): 9.44 Weight (kg): 80.100 Medications Active Meds + DC'd Last 24 Hrs Isosorbide Mononitrate 40 MG BID PO (CKD) Propofol 600 MG .STK-MED ONE ZCHARGE (DC) Sodium Zirconium Cyclosilicate 10 GM ONCE ONE PO (DC) Benzocaine 0 .STK-MED ONE MM (DC) Lidocaine HCl 0 .STK-MED ONE PO (DC) Lidocaine HCl 0 .STK-MED ONE TOPICAL (DC) Hydrocodone Bitart/Acetaminophen 1 TAB Q8H PRN P RN PO Magnesium 100 ML ASDIR PRN IV Magnesium Sulfate 50 ML ASDIR PRN IV Magnesium Sulfate 100 ML ASDIR PRN IV Nifedipine 30 MG Q6H PO Meropenem 500 MG Q6H IV Sterile Water 10 ML Collagenase 1 APPLIC DAILY TOPICAL Aspirin 81 MG DAILY PO Atorvastatin Calcium 40 MG DAILY PO Isosorbide Mononitrate 30 MG BID PO (DC) Acetaminophen 650 MG Q4H PRN PRN PO Famotidine 20 MG DAILY PO Labetalol HCl 600 MG Q8HR PO Heparin Sodium (Porcine) 5,000 UNIT Q12HR SUBQ Dextrose/Water 25 ML ASDIR PRN IV Glucagon 1 MG ASDIR PRN IM Insulin Human Lispro LOW DOSE SCALE ASDIR SUBQ Physical Exam General appearance: alert, awake, oriented ENT: moist mucous membranes Neck: no JVD, no masses or swelling Cardiovascular: normal heart sounds, regular rat e and rhythm Respiratory: aerating well, clear to auscultatio n Abdomen: normal bowel sounds, soft Extremities: no edema Musculoskeletal: decreased ROM 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 Skin: dry Results Findings/Data: Laboratory Tests 08/18 532 Chemistry Sodium (137 - 145 mmol/L) 138 Potassium (3.4 - 5.0 mmol/L) 5.0 Chloride (98 - 107 mmol/L) 104 Carbon Dioxide (22 - 30 mmol/L) 26 BUN (9 - 20 mg/dL) 21 H Creatinine (0.7 - 1.3 mg/dL) 0.8 Glomerular Filtr Rate (>60) 143 Glucose (74 - 106 mg/dL) 90 Calcium (8.4 - 10.2 mg/dL) 9.0 Total Bilirubin (0.2 - 1.3 mg/dL) 0.6 Conjugated Bilirubin (0 - 0.3 mg/dL) 0 Unconjugated Bilirubin (0 - 1.1 mg/dL) 0.5 AST (15 - 46 U/L) 48 H ALT (0 - 34 U/L) 56 H Total Alk Phosphatase (38 - 126 U/L) 115 Total Protein (6.3 - 8.2 g/dL) 7.1 Albumin (3.5 - 5.0 g/dL) 3.6 Laboratory Tests 08/18 532 Hematology WBC (5.0 - 12.0 x10 3/uL) 6.2 RBC (4.70 - 6.10 x10 6/uL) 2.79 L Hgb (14.0 - 18.0 g/dL) 8.4 L Hct (37.0 - 49.0 %) 26.1 L MCV (80 - 94 fL) 94 MCH (27 - 31 pg) 30.1 MCHC (33 - 37 g/dL) 32.2 L RDW (11.5 - 15.5 %) 18.4 H Plt Count (130 - 400 x10 3/uL) 365 MPV (9.4 - 16.4 fL) 9.4 Neut % (Auto) (43 - 65 %) 76.6 H Lymph % (Auto) (20.5 - 45.5 %) 12.6 L Citrus % (Auto) (5.5 - 11.7 %) 7.6 Eos % (Auto) (0.9 - 2.9 %) 1.3 Baso % (Auto) (0.2 - 1.0 %) 0.5 Neut # (Auto) (2.2 - 4.8 x10 3/uL) 4.76 Lymph # (Auto) (1.3 - 2.9 x10 3/uL) 0.78 L Citrus # (Auto) (0.3 - 0.8 x10 3/uL) 0.47 Eos # (Auto) (0.0 - 0.2 x10 3/uL) 0.08 Baso # (Auto) (0.0 - 0.1 x10 3/uL) 0.03 Immature Gran % (0.0 - 2.0 %) 1.4 Nucleated RBC % (0 - 1.0 %) 0.0 Diagnosis, Assessment Plan Hospital course to date: mr goins is a 35yo male with hisoty of AAA and htn who has had a prolonged hospitalization due to PEA a rrest, respiratory failure s/p intubation, multiple embolic strokes, new onset HFrEF and JENNIFER, now do wngraded from ICU given significant recovery. Nephro initially consulted for new onset jennifer. #JENNIFER w severe metabolic acidosis -resolved -eGFR stable -continue to monitor #enterobacter bacteremia #psa uti #multifocal ischemic strokes #hfref #htn -nifedipine, isosorbide #AAA recs; stable renal-white, continue to monitor, di spo per primary Plan discussed with: patient, nurse Attestations Attestation needed: supervising physician (dr aime londono) at 1413 RPT #:[id number] END OF REPORT 2020-08-18 09:05:00-00:[address] [facility] ([facility]) Nephrology Progress Note REPORT#:[id number] REPORT STATUS: Signed DATE:08/18/20 TIME: 904 PATIENT: JORGE GOINS UNIT #: [id number] ROOM/BED: [address] : 86 AGE: 35 SEX: M ATTEND: Raphael Davila MD ADM AUTHOR: Stevie Andersen R2 * ALL edits or amendments must be made on the [employer]/computer document * Subjective Chief Complaint: Htn emergency, ams HPI: no overnight events, feeling well, tolerating po well, afebrile, bp moslty in 120-140s, on room air Review of Systems All systems rev neg: except as marked Objective General VS/I O: Vital Signs: Date Time Temp Pulse Resp B/P B/P Pulse O2 O2 F low FiO2 Mean Ox Delivery Rate 08/18 0751 37.2 67 16 186/93 123.9 99 Room air 08/18 0351 37.0 65 20 127/69 88.4 100 08/18 0351 37.0 65 20 127/69 88.4 100 08/17 2329 36.0 77 18 147/84 105.0 99 08/17 1953 36.8 70 18 123/67 85.5 100 08/17 1649 37.0 66 18 142/67 92.2 100 Room air 08/17 1200 36.8 64 18 186/87 120.0 100 Room air 24 hour I O ending at 0700: 08/18 0700 08/17 1900 Intake Total Output Total 750 Balance -750 Output, Urine 750 PATIENT WEIGHT: Weight (lb): 176 Weight (oz): 9.44 Weight (kg): 80.100 Medications Active Meds + DC'd Last 24 Hrs Isosorbide Mononitrate 40 MG BID PO (CKD) Propofol 600 MG .STK-MED ONE ZCHARGE (DC) Sodium Zirconium Cyclosilicate 10 GM ONCE ONE PO (DC) Benzocaine 0 .STK-MED ONE MM (DC) Lidocaine HCl 0 .STK-MED ONE PO (DC) Lidocaine HCl 0 .STK-MED ONE TOPICAL (DC) Hydrocodone Bitart/Acetaminophen 1 TAB Q8H PRN P RN PO Magnesium 100 ML ASDIR PRN IV Magnesium Sulfate 50 ML ASDIR PRN IV Magnesium Sulfate 100 ML ASDIR PRN IV Nifedipine 30 MG Q6H PO Meropenem 500 MG Q6H IV Sterile Water 10 ML Collagenase 1 APPLIC DAILY TOPICAL Aspirin 81 MG DAILY PO Atorvastatin Calcium 40 MG DAILY PO Isosorbide Mononitrate 30 MG BID PO (DC) Acetaminophen 650 MG Q4H PRN PRN PO Famotidine 20 MG DAILY PO Labetalol HCl 600 MG Q8HR PO Heparin Sodium (Porcine) 5,000 UNIT Q12HR SUBQ Dextrose/Water 25 ML ASDIR PRN IV Glucagon 1 MG ASDIR PRN IM Insulin Human Lispro LOW DOSE SCALE ASDIR SUBQ Physical Exam General appearance: alert, awake, oriented ENT: moist mucous membranes Neck: no JVD, no masses or swelling Cardiovascular: normal heart sounds, regular rat e and rhythm Respiratory: aerating well, clear to auscultatio n Abdomen: normal bowel sounds, soft Extremities: no edema Musculoskeletal: decreased ROM 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 Skin: dry Results Findings/Data: Laboratory Tests 08/18 532 Chemistry Sodium (137 - 145 mmol/L) 138 Potassium (3.4 - 5.0 mmol/L) 5.0 Chloride (98 - 107 mmol/L) 104 Carbon Dioxide (22 - 30 mmol/L) 26 BUN (9 - 20 mg/dL) 21 H Creatinine (0.7 - 1.3 mg/dL) 0.8 Glomerular Filtr Rate (>60) 143 Glucose (74 - 106 mg/dL) 90 Calcium (8.4 - 10.2 mg/dL) 9.0 Total Bilirubin (0.2 - 1.3 mg/dL) 0.6 Conjugated Bilirubin (0 - 0.3 mg/dL) 0 Unconjugated Bilirubin (0 - 1.1 mg/dL) 0.5 AST (15 - 46 U/L) 48 H ALT (0 - 34 U/L) 56 H Total Alk Phosphatase (38 - 126 U/L) 115 Total Protein (6.3 - 8.2 g/dL) 7.1 Albumin (3.5 - 5.0 g/dL) 3.6 Laboratory Tests 08/18 532 Hematology WBC (5.0 - 12.0 x10 3/uL) 6.2 RBC (4.70 - 6.10 x10 6/uL) 2.79 L Hgb (14.0 - 18.0 g/dL) 8.4 L Hct (37.0 - 49.0 %) 26.1 L MCV (80 - 94 fL) 94 MCH (27 - 31 pg) 30.1 MCHC (33 - 37 g/dL) 32.2 L RDW (11.5 - 15.5 %) 18.4 H Plt Count (130 - 400 x10 3/uL) 365 MPV (9.4 - 16.4 fL) 9.4 Neut % (Auto) (43 - 65 %) 76.6 H Lymph % (Auto) (20.5 - 45.5 %) 12.6 L Citrus % (Auto) (5.5 - 11.7 %) 7.6 Eos % (Auto) (0.9 - 2.9 %) 1.3 Baso % (Auto) (0.2 - 1.0 %) 0.5 Neut # (Auto) (2.2 - 4.8 x10 3/uL) 4.76 Lymph # (Auto) (1.3 - 2.9 x10 3/uL) 0.78 L Citrus # (Auto) (0.3 - 0.8 x10 3/uL) 0.47 Eos # (Auto) (0.0 - 0.2 x10 3/uL) 0.08 Baso # (Auto) (0.0 - 0.1 x10 3/uL) 0.03 Immature Gran % (0.0 - 2.0 %) 1.4 Nucleated RBC % (0 - 1.0 %) 0.0 Diagnosis, Assessment Plan Hospital course to date: mr goins is a 35yo male with hisoty of AAA and htn who has had a prolonged hospitalization due to PEA a rrest, respiratory failure s/p intubation, multiple embolic strokes, new onset HFrEF and JENNIFER, now do wngraded from ICU given significant recovery. Nephro initially consulted for new onset jennifer. #JENNIFER w severe metabolic acidosis -resolved -eGFR stable -continue to monitor #enterobacter bacteremia #psa uti #multifocal ischemic strokes #hfref #htn -nifedipine, isosorbide #AAA recs; stable renal-white, continue to monitor, di spo per primary Plan discussed with: patient, nurse Attestations Attestation needed: supervising physician (dr aime londono) at 1413 at 7439 RPT #:[id number] END OF REPORT 2020-08-17 19:42:00-00:[address] [facility] ([facility]) Cardiology Progress Note REPORT#:[id number] REPORT STATUS: Signed DATE:08/17/20 TIME: 1941 PATIENT: JORGE GOINS UNIT #: [id number] ROOM/BED: [address] : 86 AGE: 35 SEX: M ATTEND: Raphael Davila MD ADM AUTHOR: Dat Stahl DO * ALL edits or amendments must be made on the el [employer]/computer document * Subjective Free Text Subj Notes Free Text Subj Notes: s/p DOMINIK this AM Objective General VS/I O: 24 hour I O ending at 0700: 08/17 0700 08/16 1900 Intake Total 980 Output Total 2200 Balance -1220 Intake, Oral 980 Output, Urine 2200 Vital Signs: Date Time Temp Pulse Resp B/P B/P Pulse O2 O2 F low FiO2 Mean Ox Delivery Rate 08/17 1649 37.0 66 18 142/67 92.2 100 Room air 08/17 1200 36.8 64 18 186/87 120.0 100 Room air 08/17 0741 37.2 64 18 142/63 89.4 100 Room air 08/17 0405 37.1 67 16 145/74 97.6 100 Room air 08/17 0014 36.7 63 16 152/73 99.1 100 Room air PATIENT WEIGHT: Weight (lb): 176 Weight (oz): 9.44 Weight (kg): 80.100 Physical Exam General appearance: alert, awake, oriented, no a cute distress Head/Eyes: atraumatic, EOMI, normocephalic, PERR L ENT: moist mucosal membranes, normal nose Neck: non-tender, supple/no meningismus Cardiovascular: CV assessment: regular rate and rhythm, normal heart sounds Respiratory: clear to auscultation, no distress Abdomen: soft, non-tender, normal bowel sounds Upper extremity: UE assessment: normal capillary refill, normal temperature, no edema Lower extremity: LE assessment: normal capillary refill, normal temperature, no edema Musculoskeletal: normal inspection, bilateral lo wer ext paralysis 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, oriented X 3, normal speech Skin: dry Diagnosis, Assessment Plan Free Text DxA P Notes Free Text DxA P Notes: 1. Hypertensive urgency/emergency - presented with severely elevated BP requiring 2 IV infusions, subsequently suffered PEA cardiac arrest - BP control improved - cont hydralazine 100mg Q8H, labetalol 600mg Q 8H - nifedipine 30mg QID, losartan held d/t hyperK 2. Cardiac arrest - PEA in etiology, pt became hypothermic and fan bsequently bradycardic 3. Type B aortic dissection s/p EVAR - has residual descending aortic dissection ext ending into iliacs. No evidence of rupture on CTA. Reviewed by vascular surgery - appreciate assitance - optimal BP Control as above 4. Acute on chronic systolic heart failure -Improved significantly 5. Shock - resolved 6. JENNIFER on CKD - improved Patient has not received dialysis in some time 7. Acute hypoxic respiratory failure - resolved - trach removed 8. Stroke - questionable stroke but improvement on repeat MRI MRI (06/26/20) - Small regions of restricted diff usion within the left frontal lobe and left occipital lobe, concerning for acute infarc ts. Abnormal patchy periventricular/deep white matter T2/FLA IR hyperintensities within the frontal lobes and parietal lobes, which are nonspecific. MRI (07/19/20) - No evidence of acute ischemia. Previously seen areas restricted diffusion on the longer present with a correspon ding abnormal T2/FLAIR signal signal showing significant improvement. Patchy p eriventricular white matter disease appears improved but not resolve d since 06/26/20 and may have related to underlying metabolic or toxic disorder and/or va sculitis. --- DOMINIK completed - no inter atrial shunt noted by color flow imaging and bubble study 9. 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 ([facility]) Hospitalist Progress Note REPORT#:[id number] REPORT STATUS: Signed DATE:08/17/20 TIME: 1656 PATIENT: JORGE GOINS UNIT #: [id number] ROOM/BED: [address] : [birth year] AGE: 35 SEX: M ATTEND: Raphael Davila MD ADM AUTHOR: Marquita Betancur * ALL edits or amendments must be made on the rimidi/computer document * Subjective Chief Complaint: assumed care chart reviewed pt seen feeling ok Follow-up lower extremity weakness, hypertension , CVA Review of Systems All systems rev neg: except as marked Objective General VS/I O: Vital Signs: Date Time Temp Pulse Resp B/P B/P Pulse O2 O2 F low FiO2 Mean Ox Delivery Rate 08/17 1649 37.0 66 18 142/67 92.2 100 Room air 08/17 1200 36.8 64 18 186/87 120.0 100 Room air 08/17 0741 37.2 64 18 142/63 89.4 100 Room air 08/17 0405 37.1 67 16 145/74 97.6 100 Room air 08/17 0014 36.7 63 16 152/73 99.1 100 Room air 08/16 1929 36.5 66 16 140/67 91.0 100 Room air 24 hour I O ending at 0700: 08/17 0700 08/16 1900 Intake Total 980 Output Total 2200 Balance -1220 Intake, Oral 980 Output, Urine 2200 PATIENT WEIGHT: Weight (lb): 176 Weight (oz): 9.44 Weight (kg): 80.100 Medications: Active Meds + DC'd Last 24 Hrs Benzocaine 0 .STK-MED ONE MM (DC) Lidocaine HCl 0 .STK-MED ONE PO (DC) Lidocaine HCl 0 .STK-MED ONE TOPICAL (DC) Hydrocodone Bitart/Acetaminophen 1 TAB Q8H PRN P RN PO Magnesium 100 ML ASDIR PRN IV Magnesium Sulfate 50 ML ASDIR PRN IV Magnesium Sulfate 100 ML ASDIR PRN IV Nifedipine 30 MG Q6H PO Meropenem 500 MG Q6H IV Sterile Water 10 ML Collagenase 1 APPLIC DAILY TOPICAL Aspirin 81 MG DAILY PO Atorvastatin Calcium 40 MG DAILY PO Isosorbide Mononitrate 30 MG BID PO Acetaminophen 650 MG Q4H PRN PRN PO Famotidine 20 MG DAILY PO Labetalol HCl 600 MG Q8HR PO Heparin Sodium (Porcine) 5,000 UNIT Q12HR SUBQ Dextrose/Water 25 ML ASDIR PRN IV Glucagon 1 MG ASDIR PRN IM Insulin Human Lispro LOW DOSE SCALE ASDIR SUBQ Nutrition assessment: The data set between the solid lines has been im ported from the dietitian's assessment. Any exceptions have been noted under Provider comments. BMI Calculated: 24.6 Nutrition related diagnosis: Overweight Nutrition diagnosis details: BMI 25-29.9 Nutrition problem: Inadequate oral intake Nutrition etiology: Decreased intake Nutrition signs and symptoms : PT REPORTED FAIR APPETITE, , EATING 50% OF MEALS, NEEDS , ORAL SUPPLEMENT. Nutrition prescription: -RECOMMEND CONTINUE TEJAS L DIET ORDERED -RECOMMEND CONTINUE ENSURE ENLIVE BID TO HELP MEET PT'S NEE D RD TO F/U PER FNS PROTOCOL. Dietitian name: Ester Cabrera RD LD Assessment completed: 08/13/20 Provider comments on imported dietitian assessme nt: Physical Exam General appearance: alert, awake Head/Eyes: atraumatic Cardiovascular: normal heart sounds, regular rat e rhythm Respiratory: aerating well, clear to auscultatio n Abdomen: non-tender, normal bowel sounds, soft Extremities: no clubbing 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, LE weakness Results Findings/Data: Laboratory Tests 08/17 0289 Chemistry Sodium (137 - 145 mmol/L) 136 L Potassium (3.4 - 5.0 mmol/L) 5.1 H Chloride (98 - 107 mmol/L) 103 Carbon Dioxide (22 - 30 mmol/L) 25 BUN (9 - 20 mg/dL) 22 H Creatinine (0.7 - 1.3 mg/dL) 0.8 Glomerular Filtr Rate (>60) 143 Glucose (74 - 106 mg/dL) 85 Calcium (8.4 - 10.2 mg/dL) 9.0 Total Bilirubin (0.2 - 1.3 mg/dL) 0.6 Conjugated Bilirubin (0 - 0.3 mg/dL) 0 Unconjugated Bilirubin (0 - 1.1 mg/dL) 0.2 AST (15 - 46 U/L) 54 H ALT (0 - 34 U/L) 72 H Total Alk Phosphatase (38 - 126 U/L) 117 Total Protein (6.3 - 8.2 g/dL) 7.1 Albumin (3.5 - 5.0 g/dL) 3.6 Laboratory Tests 08/17 0847 Coagulation INR 1.3 PT Patient/Control Mix (9.2 - 12.1 SECONDS) 14. 6 H Laboratory Tests 08/17 0419 Hematology WBC (5.0 - 12.0 x10 3/uL) 5.5 RBC (4.70 - 6.10 x10 6/uL) 2.89 L Hgb (14.0 - 18.0 g/dL) 8.5 L Hct (37.0 - 49.0 %) 27.4 L MCV (80 - 94 fL) 95 H MCH (27 - 31 pg) 29.4 MCHC (33 - 37 g/dL) 31.0 L RDW (11.5 - 15.5 %) 18.6 H Plt Count (130 - 400 x10 3/uL) 327 MPV (9.4 - 16.4 fL) 9.3 L Neut % (Auto) (43 - 65 %) 69.0 H Lymph % (Auto) (20.5 - 45.5 %) 17.6 L Citrus % (Auto) (5.5 - 11.7 %) 10.4 Eos % (Auto) (0.9 - 2.9 %) 0.5 L Baso % (Auto) (0.2 - 1.0 %) 0.5 Neut # (Auto) (2.2 - 4.8 x10 3/uL) 3.77 Lymph # (Auto) (1.3 - 2.9 x10 3/uL) 0.96 L Citrus # (Auto) (0.3 - 0.8 x10 3/uL) 0.57 Eos # (Auto) (0.0 - 0.2 x10 3/uL) 0.03 Baso # (Auto) (0.0 - 0.1 x10 3/uL) 0.03 Immature Gran % (0.0 - 2.0 %) 2.0 Nucleated RBC % (0 - 1.0 %) 0.0 Results: labs reviewed, vital signs stable Diagnosis, Assessment Plan Problem List/A P: 1. JENNIFER (acute kidney injury) Creatinine stable. nephrology following. 2. Sepsis Continue Zuñiga change every month will treat will with 10 days of meropenem end date 08/18/2020 per ID recommendations. Trial of void failed Zuñiga exchanged. 3. UTI (urinary tract infection) Urine culture positive for Pseudomonas and Ente robacter Continue meropenem for 10 days 4. Bacteremia due to Enterobacter species Continue meropenem Infectious disease following, appreciate input 5. Metabolic encephalopathy Resolved 6. H/O cardiac arrest Patient status post PEA, resolved 7. 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 Spoke with patient about get ting the LP again patient still states he will think about it some more. Continue PT/OT 8. Abnormal MRI of head Could be related to CVA Repeat MRI 07/19/20 showed patchy perive ntricular white matter disease appears improved but not resolved since 06/26/20 and may have related to u nderlying metabolic or toxic disorder and/or vasculitis. 9. Acute systolic heart failure Resolved Cardiology following, appreciate input 10. Acute CVA (cerebrovascular accident) Suspected to be cardioembolic, patient found to have PFO Cardiology performed DOMINIK 08/17 in preparation fo r potential PFO closure. Continue medical management 11. Acute on chronic anemia Patient status post 2 units PRBCs Hemoglobin stable now. 12. Hyperkalemia 5.1 today, given lokelma -losartan on hold -monitor BMP daily 13. Hypertensive emergency resolved, treating essential HTN Cardiology on board. 14. Essential hypertension Continue nifedipine, labetalol, Imdur - Imdur uptitrated 15. Aortic dissection History of type B aortic dissection status post thoracic endovascular aortic repair at outside hospital Continue labetalol Manage blood pressure per cardiology 16. Multifocal pneumonia Continue meropenem 17. Acute respiratory failure with hypoxia Resolved, patient extubated prior to downgrade from ICU Now on room air Free Text DxA P Notes Free text DxA P notes: DVT prophylaxis :Heparin at 1706 RPT #:[id number] END OF REPORT 2020-08-17 16:57:00-00:00 [facility] Hospitalist Progress Note REPORT#:[id number] REPORT STATUS: Signed DATE:08/17/20 TIME: 1657 PATIENT: JORGE GOINS UNIT #: [id number] ROOM/BED: [address] : [birth year] AGE: 35 SEX: M ATTEND: Raphael Davila MD ADM AUTHOR: Marquita Betancur * ALL edits or amendments must be made on the rimidi/computer document * Subjective Chief Complaint: assumed care chart reviewed pt seen feeling ok Follow-up lower extremity weakness, hypertension , CVA Review of Systems All systems rev neg: except as marked Objective General VS/I O: Vital Signs: Date Time Temp Pulse Resp B/P B/P Pulse O2 O2 F low FiO2 Mean Ox Delivery Rate 08/17 1649 37.0 66 18 142/67 92.2 100 Room air 08/17 1200 36.8 64 18 186/87 120.0 100 Room air 08/17 0741 37.2 64 18 142/63 89.4 100 Room air 08/17 0405 37.1 67 16 145/74 97.6 100 Room air 08/17 0014 36.7 63 16 152/73 99.1 100 Room air 08/16 1929 36.5 66 16 140/67 91.0 100 Room air 24 hour I O ending at 0700: 08/17 0700 08/16 1900 Intake Total 980 Output Total 2200 Balance -1220 Intake, Oral 980 Output, Urine 2200 PATIENT WEIGHT: Weight (lb): 176 Weight (oz): 9.44 Weight (kg): 80.100 Medications: Active Meds + DC'd Last 24 Hrs Benzocaine 0 .STK-MED ONE MM (DC) Lidocaine HCl 0 .STK-MED ONE PO (DC) Lidocaine HCl 0 .STK-MED ONE TOPICAL (DC) Hydrocodone Bitart/Acetaminophen 1 TAB Q8H PRN P RN PO Magnesium 100 ML ASDIR PRN IV Magnesium Sulfate 50 ML ASDIR PRN IV Magnesium Sulfate 100 ML ASDIR PRN IV Nifedipine 30 MG Q6H PO Meropenem 500 MG Q6H IV Sterile Water 10 ML Collagenase 1 APPLIC DAILY TOPICAL Aspirin 81 MG DAILY PO Atorvastatin Calcium 40 MG DAILY PO Isosorbide Mononitrate 30 MG BID PO Acetaminophen 650 MG Q4H PRN PRN PO Famotidine 20 MG DAILY PO Labetalol HCl 600 MG Q8HR PO Heparin Sodium (Porcine) 5,000 UNIT Q12HR SUBQ Dextrose/Water 25 ML ASDIR PRN IV Glucagon 1 MG ASDIR PRN IM Insulin Human Lispro LOW DOSE SCALE ASDIR SUBQ Nutrition assessment: The data set between the solid lines has been im ported from the dietitian's assessment. Any exceptions have been noted under Provider comments. BMI Calculated: 24.6 Nutrition related diagnosis: Overweight Nutrition diagnosis details: BMI 25-29.9 Nutrition problem: Inadequate oral intake Nutrition etiology: Decreased intake Nutrition signs and symptoms : PT REPORTED FAIR APPETITE, , EATING 50% OF MEALS, NEEDS , ORAL SUPPLEMENT. Nutrition prescription: -RECOMMEND CONTINUE TEJAS L DIET ORDERED -RECOMMEND CONTINUE ENSURE ENLIVE BID TO HELP MEET PT'S NEE D RD TO F/U PER FNS PROTOCOL. Dietitian name: Ester Cabrera RD LD Assessment completed: 08/13/20 Provider comments on imported dietitian assessme nt: Physical Exam General appearance: alert, awake Head/Eyes: atraumatic Cardiovascular: normal heart sounds, regular rat e rhythm Respiratory: aerating well, clear to auscultatio n Abdomen: non-tender, normal bowel sounds, soft Extremities: no clubbing 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, LE weakness Results Findings/Data: Laboratory Tests 08/17 418 Chemistry Sodium (137 - 145 mmol/L) 136 L Potassium (3.4 - 5.0 mmol/L) 5.1 H Chloride (98 - 107 mmol/L) 103 Carbon Dioxide (22 - 30 mmol/L) 25 BUN (9 - 20 mg/dL) 22 H Creatinine (0.7 - 1.3 mg/dL) 0.8 Glomerular Filtr Rate (>60) 143 Glucose (74 - 106 mg/dL) 85 Calcium (8.4 - 10.2 mg/dL) 9.0 Total Bilirubin (0.2 - 1.3 mg/dL) 0.6 Conjugated Bilirubin (0 - 0.3 mg/dL) 0 Unconjugated Bilirubin (0 - 1.1 mg/dL) 0.2 AST (15 - 46 U/L) 54 H ALT (0 - 34 U/L) 72 H Total Alk Phosphatase (38 - 126 U/L) 117 Total Protein (6.3 - 8.2 g/dL) 7.1 Albumin (3.5 - 5.0 g/dL) 3.6 Laboratory Tests 08/17 08 Coagulation INR 1.3 PT Patient/Control Mix (9.2 - 12.1 SECONDS) 14. 6 H Laboratory Tests 08/17 418 Hematology WBC (5.0 - 12.0 x10 3/uL) 5.5 RBC (4.70 - 6.10 x10 6/uL) 2.89 L Hgb (14.0 - 18.0 g/dL) 8.5 L Hct (37.0 - 49.0 %) 27.4 L MCV (80 - 94 fL) 95 H MCH (27 - 31 pg) 29.4 MCHC (33 - 37 g/dL) 31.0 L RDW (11.5 - 15.5 %) 18.6 H Plt Count (130 - 400 x10 3/uL) 327 MPV (9.4 - 16.4 fL) 9.3 L Neut % (Auto) (43 - 65 %) 69.0 H Lymph % (Auto) (20.5 - 45.5 %) 17.6 L Citrus % (Auto) (5.5 - 11.7 %) 10.4 Eos % (Auto) (0.9 - 2.9 %) 0.5 L Baso % (Auto) (0.2 - 1.0 %) 0.5 Neut # (Auto) (2.2 - 4.8 x10 3/uL) 3.77 Lymph # (Auto) (1.3 - 2.9 x10 3/uL) 0.96 L Citrus # (Auto) (0.3 - 0.8 x10 3/uL) 0.57 Eos # (Auto) (0.0 - 0.2 x10 3/uL) 0.03 Baso # (Auto) (0.0 - 0.1 x10 3/uL) 0.03 Immature Gran % (0.0 - 2.0 %) 2.0 Nucleated RBC % (0 - 1.0 %) 0.0 Results: labs reviewed, vital signs stable Diagnosis, Assessment Plan Problem List/A P: 1. JENNIFER (acute kidney injury) Creatinine stable. nephrology following. 2. Sepsis Continue Zuñiga change every month will treat will with 10 days of meropenem end date 08/18/2020 per ID recommendations. Trial of void failed Zuñiga exchanged. 3. UTI (urinary tract infection) Urine culture positive for Pseudomonas and Ente robacter Continue meropenem for 10 days 4. Bacteremia due to Enterobacter species Continue meropenem Infectious disease following, appreciate input 5. Metabolic encephalopathy Resolved 6. H/O cardiac arrest Patient status post PEA, resolved 7. 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 Spoke with patient about get ting the LP again patient still states he will think about it some more. Continue PT/OT 8. Abnormal MRI of head Could be related to CVA Repeat MRI 07/19/20 showed patchy perive ntricular white matter disease appears improved but not resolved since 06/26/20 and may have related to u nderlying metabolic or toxic disorder and/or vasculitis. 9. Acute systolic heart failure Resolved Cardiology following, appreciate input 10. Acute CVA (cerebrovascular accident) Suspected to be cardioembolic, patient found to have PFO Cardiology performed DOMINIK 08/17 in preparation fo r potential PFO closure. Continue medical management 11. Acute on chronic anemia Patient status post 2 units PRBCs Hemoglobin stable now. 12. Hyperkalemia 5.1 today, given lokelma -losartan on hold -monitor BMP daily 13. Hypertensive emergency resolved, treating essential HTN Cardiology on board. 14. Essential hypertension Continue nifedipine, labetalol, Imdur - Imdur uptitrated 15. Aortic dissection History of type B aortic dissection status post thoracic endovascular aortic repair at outside hospital Continue labetalol Manage blood pressure per cardiology 16. Multifocal pneumonia Continue meropenem 17. Acute respiratory failure with hypoxia Resolved, patient extubated prior to downgrade from ICU Now on room air Free Text DxA P Notes Free text DxA P notes: DVT prophylaxis :Heparin at 1706 Electronically Signed by Raphael Davila MD on at 0737 RPT #:[id number] END OF REPORT 2020-08-17 11:51:00-00:[address] [facility] ([facility]) Post Anesthesia Evaluation REPORT#:[id number] REPORT STATUS: Signed DATE:08/17/20 TIME: 1151 PATIENT: JORGE GOINS UNIT #: [id number] ROOM/BED: [address] : [birth year] AGE: 35 SEX: M ATTEND: Raphael Davila MD ADM AUTHOR: Myrtle Stone MD * ALL edits or amendments must be made on the rimidi/computer document * Post Anesthesia Evaluation Anes. changes from pre-op eval Level of consciousness: awake, responsive to com mands Vital signs: Last Documented: Result Date Time Pulse Ox 100 08/17 740 B/P 142/63 08/17 740 B/P Mean 89.4 08/17 740 O2 Delivery Room air 08/17 740 Temp 37.2 08/17 740 Pulse 64 08/17 740 Resp 18 08/17 740 FiO2 21 08/06 0823 O2 Flow Rate 5 07/28 2322 Cardiovascular: vital signs stable, ECG,BP,SPO2,RR within reasonable and normal pre-procedure status Respiratory/Airway: maintains without support Pain: controlled with analgesics (0-3) Hydration: adequate Temp status: normothermic Presence of N/V: no Anesthesia complications: no Other changes requiring f/u: none Electronically Signed by Myrtle Stone MD on 08/17 at 1151 RPT #:[id number] END OF REPORT 2020-08-17 10:33:00-00:[address] [facility] ([facility]) Nephrology Progress Note REPORT#:[id number] REPORT STATUS: Signed DATE:08/17/20 TIME: 1033 PATIENT: JORGE GOINS UNIT #: [id number] ROOM/BED: [address] : [birth year] AGE: 35 SEX: M ATTEND: Raphael Davila MD ADM AUTHOR: Stevie Andersen R2 * ALL edits or amendments must be made on the el [employer]/computer document * Subjective Chief Complaint: Htn emergency, ams HPI: no events, afebrile, going for dominik today Review of Systems All systems rev neg: except as marked Objective General VS/I O: Vital Signs: Date Time Temp Pulse Resp B/P B/P Pulse O2 O2 F low FiO2 Mean Ox Delivery Rate 08/17 1200 36.8 64 18 186/87 120.0 100 Room air 08/17 0741 37.2 64 18 142/63 89.4 100 Room air 08/17 0405 37.1 67 16 145/74 97.6 100 Room air 08/17 0014 36.7 63 16 152/73 99.1 100 Room air 08/16 1929 36.5 66 16 140/67 91.0 100 Room air 08/16 1613 37.2 70 18 137/65 89.0 100 Room air 24 hour I O ending at 0700: 08/17 0700 08/16 1900 Intake Total 980 Output Total 2200 Balance -1220 Intake, Oral 980 Output, Urine 2200 PATIENT WEIGHT: Weight (lb): 176 Weight (oz): 9.44 Weight (kg): 80.100 Medications Active Meds + DC'd Last 24 Hrs Benzocaine 0 .STK-MED ONE MM (DC) Lidocaine HCl 0 .STK-MED ONE PO (DC) Lidocaine HCl 0 .STK-MED ONE TOPICAL (DC) Hydrocodone Bitart/Acetaminophen 1 TAB Q8H PRN P RN PO Magnesium 100 ML ASDIR PRN IV Magnesium Sulfate 50 ML ASDIR PRN IV Magnesium Sulfate 100 ML ASDIR PRN IV Nifedipine 30 MG Q6H PO Meropenem 500 MG Q6H IV Sterile Water 10 ML Collagenase 1 APPLIC DAILY TOPICAL Aspirin 81 MG DAILY PO Atorvastatin Calcium 40 MG DAILY PO Isosorbide Mononitrate 30 MG BID PO Acetaminophen 650 MG Q4H PRN PRN PO Famotidine 20 MG DAILY PO Labetalol HCl 600 MG Q8HR PO Heparin Sodium (Porcine) 5,000 UNIT Q12HR SUBQ Dextrose/Water 25 ML ASDIR PRN IV Glucagon 1 MG ASDIR PRN IM Insulin Human Lispro LOW DOSE SCALE ASDIR SUBQ Physical Exam General appearance: alert, awake ENT: moist mucous membranes Neck: no JVD, no masses or swelling Cardiovascular: normal heart sounds, regular rat e and rhythm Respiratory: aerating well, clear to auscultatio n Abdomen: normal bowel sounds, soft Extremities: no edema Musculoskeletal: decreased ROM 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 Skin: dry Results Findings/Data: Laboratory Tests 08/17 041 Chemistry Sodium (137 - 145 mmol/L) 136 L Potassium (3.4 - 5.0 mmol/L) 5.1 H Chloride (98 - 107 mmol/L) 103 Carbon Dioxide (22 - 30 mmol/L) 25 BUN (9 - 20 mg/dL) 22 H Creatinine (0.7 - 1.3 mg/dL) 0.8 Glomerular Filtr Rate (>60) 143 Glucose (74 - 106 mg/dL) 85 Calcium (8.4 - 10.2 mg/dL) 9.0 Total Bilirubin (0.2 - 1.3 mg/dL) 0.6 Conjugated Bilirubin (0 - 0.3 mg/dL) 0 Unconjugated Bilirubin (0 - 1.1 mg/dL) 0.2 AST (15 - 46 U/L) 54 H ALT (0 - 34 U/L) 72 H Total Alk Phosphatase (38 - 126 U/L) 117 Total Protein (6.3 - 8.2 g/dL) 7.1 Albumin (3.5 - 5.0 g/dL) 3.6 Laboratory Tests 08/17 0847 Coagulation INR 1.3 PT Patient/Control Mix (9.2 - 12.1 SECONDS) 14. 6 H Laboratory Tests 08/17 0419 Hematology WBC (5.0 - 12.0 x10 3/uL) 5.5 RBC (4.70 - 6.10 x10 6/uL) 2.89 L Hgb (14.0 - 18.0 g/dL) 8.5 L Hct (37.0 - 49.0 %) 27.4 L MCV (80 - 94 fL) 95 H MCH (27 - 31 pg) 29.4 MCHC (33 - 37 g/dL) 31.0 L RDW (11.5 - 15.5 %) 18.6 H Plt Count (130 - 400 x10 3/uL) 327 MPV (9.4 - 16.4 fL) 9.3 L Neut % (Auto) (43 - 65 %) 69.0 H Lymph % (Auto) (20.5 - 45.5 %) 17.6 L Citrus % (Auto) (5.5 - 11.7 %) 10.4 Eos % (Auto) (0.9 - 2.9 %) 0.5 L Baso % (Auto) (0.2 - 1.0 %) 0.5 Neut # (Auto) (2.2 - 4.8 x10 3/uL) 3.77 Lymph # (Auto) (1.3 - 2.9 x10 3/uL) 0.96 L Citrus # (Auto) (0.3 - 0.8 x10 3/uL) 0.57 Eos # (Auto) (0.0 - 0.2 x10 3/uL) 0.03 Baso # (Auto) (0.0 - 0.1 x10 3/uL) 0.03 Immature Gran % (0.0 - 2.0 %) 2.0 Nucleated RBC % (0 - 1.0 %) 0.0 Diagnosis, Assessment Plan Free Text A P: JENNIFER resolved hypotension AAA lactic acidosis severe metabolic acidosis- resolved Metabolic alkalosis - resolved cr is stable monitor k levels pt advised on low k diet went for dominik today Plan discussed with: patient, nurse Attestations Attestation needed: supervising physician (dr aime londono) at 1503 RPT #:[id number] END OF REPORT 2020-08-17 10:33:00-00:[address] [facility] ([facility]) Nephrology Progress Note REPORT#:[id number] REPORT STATUS: Signed DATE:08/17/20 TIME: 1033 PATIENT: JORGE GOINS UNIT #: [id number] ROOM/BED: [address] : 86 AGE: 35 SEX: M ATTEND: Raphael Davila MD ADM AUTHOR: Stevie Andersen R2 * ALL edits or amendments must be made on the [employer] document * Subjective Chief Complaint: Htn emergency, ams HPI: no events, afebrile, going for dominik today Review of Systems All systems rev neg: except as marked Objective General VS/I O: Vital Signs: Date Time Temp Pulse Resp B/P B/P Pulse O2 O2 Flow FiO2 Mean Ox Delivery Rate 08/17 1200 36.8 64 18 186/87 120.0 100 Room air 08/17 0741 37.2 64 18 142/63 89.4 100 Room air 08/17 0405 37.1 67 16 145/74 97.6 100 Room air 08/17 0014 36.7 63 16 152/73 99.1 100 Room air 08/16 1929 36.5 66 16 140/67 91.0 100 Room air 08/16 1613 37.2 70 18 137/65 89.0 100 Room air 24 hour I O ending at 0700: 08/17 0700 08/16 1900 Intake Total 980 Output Total 2200 Balance -1220 Intake, Oral 980 Output, Urine 2200 PATIENT WEIGHT: Weight (lb): 176 Weight (oz): 9.44 Weight (kg): 80.100 Medications Active Meds + DC'd Last 24 Hrs Benzocaine 0 .STK-MED ONE MM (DC) Lidocaine HCl 0 .STK-MED ONE PO (DC) Lidocaine HCl 0 .STK-MED ONE TOPICAL (DC) Hydrocodone Bitart/Acetaminophen 1 TAB Q8H PRN P RN PO Magnesium 100 ML ASDIR PRN IV Magnesium Sulfate 50 ML ASDIR PRN IV Magnesium Sulfate 100 ML ASDIR PRN IV Nifedipine 30 MG Q6H PO Meropenem 500 MG Q6H IV Sterile Water 10 ML Collagenase 1 APPLIC DAILY TOPICAL Aspirin 81 MG DAILY PO Atorvastatin Calcium 40 MG DAILY PO Isosorbide Mononitrate 30 MG BID PO Acetaminophen 650 MG Q4H PRN PRN PO Famotidine 20 MG DAILY PO Labetalol HCl 600 MG Q8HR PO Heparin Sodium (Porcine) 5,000 UNIT Q12HR SUBQ Dextrose/Water 25 ML ASDIR PRN IV Glucagon 1 MG ASDIR PRN IM Insulin Human Lispro LOW DOSE SCALE ASDIR SUBQ Physical Exam General appearance: alert, awake ENT: moist mucous membranes Neck: no JVD, no masses or swelling Cardiovascular: normal heart sounds, regular rat e and rhythm Respiratory: aerating well, clear to auscultatio n Abdomen: normal bowel sounds, soft Extremities: no edema Musculoskeletal: decreased ROM 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 Skin: dry Results Findings/Data: Laboratory Tests 08/17 418 Chemistry Sodium (137 - 145 mmol/L) 136 L Potassium (3.4 - 5.0 mmol/L) 5.1 H Chloride (98 - 107 mmol/L) 103 Carbon Dioxide (22 - 30 mmol/L) 25 BUN (9 - 20 mg/dL) 22 H Creatinine (0.7 - 1.3 mg/dL) 0.8 Glomerular Filtr Rate (>60) 143 Glucose (74 - 106 mg/dL) 85 Calcium (8.4 - 10.2 mg/dL) 9.0 Total Bilirubin (0.2 - 1.3 mg/dL) 0.6 Conjugated Bilirubin (0 - 0.3 mg/dL) 0 Unconjugated Bilirubin (0 - 1.1 mg/dL) 0.2 AST (15 - 46 U/L) 54 H ALT (0 - 34 U/L) 72 H Total Alk Phosphatase (38 - 126 U/L) 117 Total Protein (6.3 - 8.2 g/dL) 7.1 Albumin (3.5 - 5.0 g/dL) 3.6 Laboratory Tests 08/17 846 Coagulation INR 1.3 PT Patient/Control Mix (9.2 - 12.1 SECONDS) 14. 6 H Laboratory Tests 08/17 418 Hematology WBC (5.0 - 12.0 x10 3/uL) 5.5 RBC (4.70 - 6.10 x10 6/uL) 2.89 L Hgb (14.0 - 18.0 g/dL) 8.5 L Hct (37.0 - 49.0 %) 27.4 L MCV (80 - 94 fL) 95 H MCH (27 - 31 pg) 29.4 MCHC (33 - 37 g/dL) 31.0 L RDW (11.5 - 15.5 %) 18.6 H Plt Count (130 - 400 x10 3/uL) 327 MPV (9.4 - 16.4 fL) 9.3 L Neut % (Auto) (43 - 65 %) 69.0 H Lymph % (Auto) (20.5 - 45.5 %) 17.6 L Citrus % (Auto) (5.5 - 11.7 %) 10.4 Eos % (Auto) (0.9 - 2.9 %) 0.5 L Baso % (Auto) (0.2 - 1.0 %) 0.5 Neut # (Auto) (2.2 - 4.8 x10 3/uL) 3.77 Lymph # (Auto) (1.3 - 2.9 x10 3/uL) 0.96 L Citrus # (Auto) (0.3 - 0.8 x10 3/uL) 0.57 Eos # (Auto) (0.0 - 0.2 x10 3/uL) 0.03 Baso # (Auto) (0.0 - 0.1 x10 3/uL) 0.03 Immature Gran % (0.0 - 2.0 %) 2.0 Nucleated RBC % (0 - 1.0 %) 0.0 Diagnosis, Assessment Plan Free Text A P: JENNIFER resolved hypotension AAA lactic acidosis severe metabolic acidosis- resolved Metabolic alkalosis - resolved cr is stable monitor k levels pt advised on low k diet went for dominik today Plan discussed with: patient, nurse Attestations Attestation needed: supervising physician (dr salomon or) at 1503 at 0850 RPT #:[id number] END OF REPORT 2020-08-16 16:53:00-00:00 [facility] Hospitalist Progress Note REPORT#:[id number] REPORT STATUS: Signed DATE:08/16/20 TIME: 1653 PATIENT: JORGE GOINS UNIT #: [id number] ROOM/BED: [address] : 86 AGE: 35 SEX: M ATTEND: Raphael Davila MD ADM AUTHOR: Tessa Wofle MD * ALL edits or amendments must be made on the rimidi/computer document * Subjective Chief Complaint: assumed care chart reviewed pt seen feeling ok Follow-up lower extremity weakness, hypertension , CVA Review of Systems All systems rev neg: except as marked Objective General VS/I O: Vital Signs: Date Time Temp Pulse Resp B/P B/P Pulse O2 O2 F low FiO2 Mean Ox Delivery Rate 08/16 1613 99.0 70 18 137/65 89.0 100 Room air 08/16 1312 104/55 71 08/16 1139 98.8 68 18 136/68 90.8 100 Room air 08/16 0734 98.2 68 18 120/69 86.1 100 Room air 08/16 0329 96.8 76 20 118/62 81.0 100 08/16 0031 98.6 60 20 146/74 98.2 100 08/15 1958 98.6 67 18 134/68 89.8 100 24 hour I O ending at 0700: 08/16 0700 08/15 1900 Intake Total 900 Output Total 3000 Balance -2100 Intake, Oral 900 Number 1 Incontinent Voids Output, Urine 3000 PATIENT WEIGHT: Weight (lb): 176 Weight (oz): 9.44 Weight (kg): 80.100 Medications: Active Meds + DC'd Last 24 Hrs Hydrocodone Bitart/Acetaminophen 1 TAB Q8H PRN P RN PO Magnesium 100 ML ASDIR PRN IV Magnesium Sulfate 50 ML ASDIR PRN IV Magnesium Sulfate 100 ML ASDIR PRN IV Nifedipine 30 MG Q6H PO Meropenem 500 MG Q6H IV Sterile Water 10 ML Collagenase 1 APPLIC DAILY TOPICAL Aspirin 81 MG DAILY PO Atorvastatin Calcium 40 MG DAILY PO Isosorbide Mononitrate 30 MG BID PO Acetaminophen 650 MG Q4H PRN PRN PO Famotidine 20 MG DAILY PO Labetalol HCl 600 MG Q8HR PO Heparin Sodium (Porcine) 5,000 UNIT Q12HR SUBQ Dextrose/Water 25 ML ASDIR PRN IV Glucagon 1 MG ASDIR PRN IM Insulin Human Lispro LOW DOSE SCALE ASDIR SUBQ Physical Exam General appearance: alert, awake, oriented Head/Eyes: atraumatic Cardiovascular: normal heart sounds, regular rat e rhythm Respiratory: aerating well, clear to auscultatio n Extremities: no clubbing 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, LE weakness Diagnosis, Assessment Plan Free Text DxA P Notes Free text DxA P notes: 1. JENNIFER (acute kidney injury) Creatinine stable. nephrology following. 2. Sepsis Continue Zuñiga change every month will treat will with 10 days of meropenem end date 08/18/2020 per ID recommendations. Trial of void failed, Zuñiga exchanged. 3. UTI (urinary tract infection) Urine culture positive for Pseudomonas and Ente robacter Continue meropenem for 10 days 4. Bacteremia due to Enterobacter species Continue meropenem Infectious disease following, appreciate input 5. Metabolic encephalopathy Resolved 6. H/O cardiac arrest Patient status post PEA, resolved 7. 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 Spoke with patient about get ting the LP again patient still states he will think about it some more. Continue PT/OT 8. Abnormal MRI of head Could be related to CVA Repeat MRI 07/19/20 showed patchy perive ntricular white matter disease appears improved but not resolved since 06/26/20 and may have related to u nderlying metabolic or toxic disorder and/or vasculitis. 9. Acute systolic heart failure Resolved Cardiology following, appreciate input 10. Acute CVA (cerebrovascular accident) Suspected to be cardioembolic, patient found to have PFO Cardiology discussed DOMINIK in preparation for pot ential PFO closure. Patient amenable to getting DOMINIK spoke to cardiology germaine duled for Monday08/17/20. Continue medical management 11. Acute on chronic anemia Patient status post 2 units PRBCs Hemoglobin stable now. 12. Hyperkalemia Hyperkalemia protocol initiated 5.9 today, losartan stopped by nephro, started ok [facility]. Monitor BMP 13. Hypertensive emergency Blood pressure controlled on current regimen. C ardiology on board. 14. Essential hypertension Continue nifedipine, labetalol, Imdur 15. Aortic dissection History of type B aortic dissection status post thoracic endovascular aortic repair at outside hospital Continue labetalol Manage blood pressure per cardiology 16. Multifocal pneumonia Continue meropenem 17. Acute respiratory failure with hypoxia Resolved, patient extubated prior to downgrade from ICU Now on room air 18. Hyperkalemia 4.7 today nephrology went up on [facility]. we will f/u repeat labs in am DVT prophylaxis :Heparin Electronically Signed by Tessa Wolfe MD on at 0214 RPT #:[id number] END OF REPORT 2020-08-15 16:49:00-00:[address] [facility] ([facility]) Cardiology Progress Note REPORT#:[id number] REPORT STATUS: Signed DATE:08/15/20 TIME: 9 PATIENT: JORGE GOINS UNIT #: [id number] ROOM/BED: [address] : 86 AGE: 35 SEX: M ATTEND: Raphael Davila MD ADM AUTHOR: Dat Stahl DO * ALL edits or amendments must be made on the [employer] document * Subjective Free Text Subj Notes Free Text Subj Notes: no acute events overnight bilateral lower ext paralysis Objective General VS/I O: Vital Signs: Date Time Temp Pulse Resp B/P B/P Pulse O2 O2 F low FiO2 Mean Ox Delivery Rate 08/15 1528 36.8 63 18 146/69 94.6 100 Room air 08/15 1149 36.8 61 19 172/90 117.2 100 Room air 08/15 0717 37.2 74 16 123/59 80.1 100 Room air 08/15 0517 36.6 69 19 151/76 101.3 100 Room air 08/15 0212 36.9 70 18 119/72 87.3 100 Room air 08/15 0212 36.9 70 18 119/72 87.3 100 Room air 08/14 2013 37.1 73 17 115/66 82.4 100 Room air 08/14 2013 37.1 73 17 115/66 82.4 100 Room air PATIENT WEIGHT: Weight (lb): 176 Weight (oz): 9.44 Weight (kg): 80.100 Physical Exam General appearance: alert, awake, oriented, no a cute distress Head/Eyes: atraumatic, EOMI, normocephalic, PERR L ENT: moist mucosal membranes, normal nose Neck: non-tender, supple/no meningismus Cardiovascular: CV assessment: regular rate and rhythm, normal heart sounds Respiratory: clear to auscultation, no distress Abdomen: soft, non-tender, normal bowel sounds Upper extremity: UE assessment: normal capillary refill, normal temperature, no edema Lower extremity: LE assessment: normal capillary refill, normal temperature, no edema Musculoskeletal: normal inspection, bilateral lo wer ext paralysis 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, oriented X 3, normal speech Skin: dry Diagnosis, Assessment Plan Free Text DxA P Notes Free Text DxA P Notes: 1. Hypertensive urgency/emergency - presented with severely elevated BP requiring 2 IV infusions, subsequently suffered PEA cardiac arrest - BP control improved - cont hydralazine 100mg Q8H, labetalol 600mg Q 8H - nifedipine 30mg QID, losartan held d/t hyperK 2. Cardiac arrest - PEA in etiology, pt became hypothermic and fan bsequently bradycardic 3. Type B aortic dissection s/p EVAR - has residual descending aortic dissection ext ending into iliacs. No evidence of rupture on CTA. Reviewed by vascular surgery - appreciate assitance - optimal BP Control as above 4. Acute on chronic systolic heart failure -Improved significantly 5. Shock - resolved 6. JENNIFER on CKD - improved Patient has not received dialysis in some time 7. Acute hypoxic respiratory failure - resolved - trach removed 8. Stroke - questionable stroke but improvement on repeat MRI MRI (06/26/20) - Small regions of restricted diff usion within the left frontal lobe and left occipital lobe, concerning for acute infarc ts. Abnormal patchy periventricular/deep white matter T2/FLA IR hyperintensities within the frontal lobes and parietal lobes, which are nonspecific. MRI (07/19/20) - No evidence of acute ischemia. Previously seen areas restricted diffusion on the longer present with a correspon ding abnormal T2/FLAIR signal signal showing significant improvement. Patchy p eriventricular white matter disease appears improved but not resolve d since 06/26/20 and may have related to underlying metabolic or toxic disorder and/or va sculitis. --- plan for DOMINIK on Monday given potential PFO o n TTE 9. Bilateral lower extremity weakness - critical illness myopathy vs GBS - prev refused lumbar puncture for further eval Will follow [facility] Cardiology Electronically Signed by Dat Stahl DO o n 08/15/20 at 1659 RPT #:[id number] END OF REPORT 2020-08-15 14:32:00-00:00 [facility] Hospitalist Progress Note REPORT#:[id number] REPORT STATUS: Signed DATE:08/15/20 TIME: 1432 PATIENT: JORGE GOINS UNIT #: [id number] ROOM/BED: [address] : 87 AGE: 35 SEX: M ATTEND: Raphael Davila MD ADM AUTHOR: Tessa Mccullough DO * ALL edits or amendments must be made on the rimidi/computer document * Subjective Chief Complaint: assumed care chart reviewed pt seen feeling ok Follow-up lower extremity weakness, hypertensio n, CVA HPI: No complaints. Denies nausea vomiting chest pain shortness of breath. Pending DOMINIK on Monday. Review of Systems Constitutional: Denies: chills, fever. Respiratory: Denies: SOB, wheezing. Cardiovascular: Denies: chest pain, palpitations. GI: Denies: abdominal pain, nausea, vomiting. Objective General VS/I O: Vital Signs: Date Time Temp Pulse Resp B/P B/P Pulse O2 O2 F low FiO2 Mean Ox Delivery Rate 08/15 1149 36.8 61 19 172/90 117.2 100 Room air 08/15 0717 37.2 74 16 123/59 80.1 100 Room air 08/15 0517 36.6 69 19 151/76 101.3 100 Room air 08/15 0212 36.9 70 18 119/72 87.3 100 Room air 08/15 021 36.9 70 18 119/72 87.3 100 Room air 08/14 2013 37.1 73 17 115/66 82.4 100 Room air 08/14 2013 37.1 73 17 115/66 82.4 100 Room air 08/14 1613 36.4 74 125/63 83.3 100 PATIENT WEIGHT: Weight (lb): 176 Weight (oz): 9.44 Weight (kg): 80.100 Physical Exam General appearance: alert, awake, oriented Head/Eyes: atraumatic Cardiovascular: normal heart sounds, regular rat e rhythm Respiratory: aerating well, clear to auscultatio n Abdomen: non-tender, normal bowel sounds, soft Extremities: no clubbing 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, LE weakness Results Findings/Data: Laboratory Tests 08/15 08/14 0500 1725 Chemistry Sodium (137 - 145 mmol/L) 137 Potassium (3.4 - 5.0 mmol/L) 4.7 Chloride (98 - 107 mmol/L) 103 Carbon Dioxide (22 - 30 mmol/L) 24 BUN (9 - 20 mg/dL) 21 H Creatinine (0.7 - 1.3 mg/dL) 0.8 Glomerular Filtr Rate (>60) 143 Glucose (74 - 106 mg/dL) 84 Calcium (8.4 - 10.2 mg/dL) 9.1 Magnesium (1.6 - 2.3 mg/dL) 2.0 Total Bilirubin (0.2 - 1.3 mg/dL) 0.5 Conjugated Bilirubin (0 - 0.3 mg/dL) 0 Unconjugated Bilirubin (0 - 1.1 mg/dL) 0.3 AST (15 - 46 U/L) 117 H ALT (0 - 34 U/L) 115 H Total Alk Phosphatase (38 - 126 U/L) 139 H Total Protein (6.3 - 8.2 g/dL) 7.3 Albumin (3.5 - 5.0 g/dL) 3.7 Laboratory Tests 08/15 0500 Hematology WBC (5.0 - 12.0 x10 3/uL) 5.7 RBC (4.70 - 6.10 x10 6/uL) 2.66 L Hgb (14.0 - 18.0 g/dL) 7.9 L Hct (37.0 - 49.0 %) 25.3 L MCV (80 - 94 fL) 95 H MCH (27 - 31 pg) 29.7 MCHC (33 - 37 g/dL) 31.2 L RDW (11.5 - 15.5 %) 18.6 H Plt Count (130 - 400 x10 3/uL) 337 MPV (9.4 - 16.4 fL) 9.6 Neut % (Auto) (43 - 65 %) 68.5 H Lymph % (Auto) (20.5 - 45.5 %) 17.4 L Citrus % (Auto) (5.5 - 11.7 %) 10.8 Eos % (Auto) (0.9 - 2.9 %) 1.4 Baso % (Auto) (0.2 - 1.0 %) 0.5 Neut # (Auto) (2.2 - 4.8 x10 3/uL) 3.93 Lymph # (Auto) (1.3 - 2.9 x10 3/uL) 1.00 L Citrus # (Auto) (0.3 - 0.8 x10 3/uL) 0.62 Eos # (Auto) (0.0 - 0.2 x10 3/uL) 0.08 Baso # (Auto) (0.0 - 0.1 x10 3/uL) 0.03 Immature Gran % (0.0 - 2.0 %) 1.4 Nucleated RBC % (0 - 1.0 %) 0.0 Diagnosis, Assessment Plan Problem List/A P: 1. JENNIFER (acute kidney injury) Creatinine stable. nephrology following. 2. Sepsis Continue Zuñiga change every month will treat will with 10 days of meropenem end date 08/18/2020 per ID recommendations. Trial of void failed Zuñiga exchanged. 3. UTI (urinary tract infection) Urine culture positive for Pseudomonas and Ente robacter Continue meropenem for 10 days 4. Bacteremia due to Enterobacter species Continue meropenem Infectious disease following, appreciate input 5. Metabolic encephalopathy Resolved 6. H/O cardiac arrest Patient status post PEA, resolved 7. 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 Spoke with patient about get ting the LP again patient still states he will think about it some more. Continue PT/OT 8. Abnormal MRI of head Could be related to CVA Repeat MRI 07/19/20 showed patchy perive ntricular white matter disease appears improved but not resolved since 06/26/20 and may have related to u nderlying metabolic or toxic disorder and/or vasculitis. 9. Acute systolic heart failure Resolved Cardiology following, appreciate input 10. Acute CVA (cerebrovascular accident) Suspected to be cardioembolic, patient found to have PFO Cardiology discussed DOMINIK in preparation for pot ential PFO closure. Patient amenable to getting DOMINIK spoke to cardiology sche duled for Monday08/17/20. Continue medical management 11. Acute on chronic anemia Patient status post 2 units PRBCs Hemoglobin stable now. 12. Hyperkalemia Hyperkalemia protocol initiated 5.9 today, losartan stopped by nephro, started ok lokelma. Monitor BMP 13. Hypertensive emergency Blood pressure controlled on current regimen. C ardiology on board. 14. Essential hypertension Continue nifedipine, labetalol, Imdur 15. Aortic dissection History of type B aortic dissection status post thoracic endovascular aortic repair at outside hospital Continue labetalol Manage blood pressure per cardiology 16. Multifocal pneumonia Continue meropenem 17. Acute respiratory failure with hypoxia Resolved, patient extubated prior to downgrade from ICU Now on room air 18. Hyperkalemia 4.7 today nephrology went up on Lokelma. Free Text DxA P Notes Free text DxA P notes: we will f/u DVT prophylaxis Heparin at [facility] RPT #:[id number] END OF REPORT 2020-08-14 16:30:00-00:[address] [facility] ([facility]) Nephrology Progress Note REPORT#:[id number] REPORT STATUS: Signed DATE:08/14/20 TIME: 1630 PATIENT: JORGE GOINS UNIT #: [id number] ROOM/BED: [address] : 86 AGE: 35 SEX: M ATTEND: Raphael Davila MD ADM AUTHOR: Jojo York MD * ALL edits or amendments must be made on the [employer]/computer document * Subjective Comments: events noted Objective General VS/I O: Vital Signs: Date Time Temp Pulse Resp B/P B/P Pulse O2 O2 Flow FiO2 Mean Ox Delivery Rate 08/14 1613 97.5 74 125/63 83.3 100 08/14 1408 62 138/71 93.6 08/14 1249 98.1 69 17 123/57 79.2 100 08/14 0742 98.4 78 18 120/61 81.0 100 08/14 0527 98.8 68 16 128/73 91.7 100 Room air 08/14 0040 97.7 61 16 148/76 100.0 100 Room air 08/13 2236 68 117/66 82.9 08/13 2003 98.1 90 14 106/61 76.1 99 Room air 08/13 1816 79 17 100/56 70.9 100 24 hour I O ending at 0700: 08/14 0700 08/13 1900 Intake Total Output Total 1150 Balance -1150 Output, Urine 1150 PATIENT WEIGHT: Weight (lb): 176 Weight (oz): 9.44 Weight (kg): 80.100 Medications Active Meds + DC'd Last 24 Hrs Sodium Polystyrene Sulfonate 30 GM ONCE ONE PO (UNV) Sodium Zirconium Cyclosilicate 10 GM MO PO Magnesium 100 ML ASDIR PRN IV Magnesium Sulfate 50 ML ASDIR PRN IV Magnesium Sulfate 100 ML ASDIR PRN IV Magnesium MAGSS ASDIR PRN IV (DC) Sodium Polystyrene Sulfonate 15 GM ONCE ONE PO ( DC) Nifedipine 30 MG Q6H PO Sodium Zirconium Cyclosilicate 5 GM MO PO (DC) Meropenem 500 MG Q6H IV Sterile Water 10 ML Hydrocodone Bitart/Acetaminophen 1 TAB Q6H PRN P RN PO (DC) Collagenase 1 APPLIC DAILY TOPICAL Aspirin 81 MG DAILY PO Atorvastatin Calcium 40 MG DAILY PO Isosorbide Mononitrate 30 MG BID PO Acetaminophen 650 MG Q4H PRN PRN PO Famotidine 20 MG DAILY PO Labetalol HCl 600 MG Q8HR PO Heparin Sodium (Porcine) 5,000 UNIT Q12HR SUBQ Heparin Sodium (Porcine) 2,000 UNIT DIALYSIS-DOS E BEFORE IV (CKD) Heparin Sodium (Porcine) 5,000 UNIT DIALYSIS-DOS E AFTER MISC (DC) Sodium Chloride 1,000 ML ASDIR PRN IV (DC) Dextrose/Water 25 ML ASDIR PRN IV Glucagon 1 MG ASDIR PRN IM Insulin Human Lispro LOW DOSE SCALE ASDIR SUBQ Physical Exam General appearance: no acute distress ENT: moist mucous membranes Neck: no JVD, no masses or swelling Cardiovascular: normal heart sounds, regular rat e and rhythm Respiratory: aerating well, clear to auscultatio n Abdomen: normal bowel sounds, soft Extremities: no edema Musculoskeletal: decreased ROM 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 Results Findings/Data: Laboratory Tests 08/14 08/14 08/13 1055 0554 2003 Chemistry Sodium (137 - 145 mmol/L) 136 L 136 L Potassium (3.4 - 5.0 mmol/L) 5.2 H 5.9 H Chloride (98 - 107 mmol/L) 103 103 Carbon Dioxide (22 - 30 mmol/L) 26 25 BUN (9 - 20 mg/dL) 21 H 20 Creatinine (0.7 - 1.3 mg/dL) 0.8 0.8 Glomerular Filtr Rate (>60) 143 143 Glucose (74 - 106 mg/dL) 93 85 POC Glucose (74 - 106 MG/DL) 89 Calcium (8.4 - 10.2 mg/dL) 9.3 9.1 Magnesium (1.6 - 2.3 mg/dL) 1.5 L Total Bilirubin (0.2 - 1.3 mg/dL) 0.6 Conjugated Bilirubin (0 - 0.3 mg/dL) 0 Unconjugated Bilirubin (0 - 1.1 mg/dL) 0.2 AST (15 - 46 U/L) 84 H ALT (0 - 34 U/L) 88 H Total Alk Phosphatase (38 - 126 U/L) 137 H Total Protein (6.3 - 8.2 g/dL) 7.3 Albumin (3.5 - 5.0 g/dL) 3.7 Laboratory Tests 08/14 08/14 1054 0554 Hematology WBC (5.0 - 12.0 x10 3/uL) 5.3 5.2 RBC (4.70 - 6.10 x10 6/uL) 2.83 L 2.91 L Hgb (14.0 - 18.0 g/dL) 8.2 L 8.8 L Hct (37.0 - 49.0 %) 26.0 L 27.3 L MCV (80 - 94 fL) 92 94 MCH (27 - 31 pg) 29.0 30.2 MCHC (33 - 37 g/dL) 31.5 L 32.2 L RDW (11.5 - 15.5 %) 18.3 H 18.4 H Plt Count (130 - 400 x10 3/uL) 284 283 MPV (9.4 - 16.4 fL) 9.6 9.8 Neut % (Auto) (43 - 65 %) 66.7 H 65.9 H Lymph % (Auto) (20.5 - 45.5 %) 19.0 L 19.6 L Citrus % (Auto) (5.5 - 11.7 %) 9.7 9.7 Eos % (Auto) (0.9 - 2.9 %) 2.5 2.5 Baso % (Auto) (0.2 - 1.0 %) 0.4 0.4 Neut # (Auto) (2.2 - 4.8 x10 3/uL) 3.50 3.39 Lymph # (Auto) (1.3 - 2.9 x10 3/uL) 1.00 L 1.0 1 L Citrus # (Auto) (0.3 - 0.8 x10 3/uL) 0.51 0.50 Eos # (Auto) (0.0 - 0.2 x10 3/uL) 0.13 0.13 Baso # (Auto) (0.0 - 0.1 x10 3/uL) 0.02 0.02 Immature Gran % (0.0 - 2.0 %) 1.7 1.9 Nucleated RBC % (0 - 1.0 %) 0.0 0.0 Diagnosis, Assessment Plan Free Text A P: JENNIFER hypotension AAA lactic acidosis severe metabolic acidosis- resolved Metabolic alkalosis - resolved cr is stable continue with lokema- increase to 10gm daily monitor k levels pt advised on low k diet at 1632 RPT #:[id number] END OF REPORT 2020-08-14 09:06:00-00:00 [facility] Hospitalist Progress Note REPORT#:[id number] REPORT STATUS: Signed DATE:08/14/20 TIME: 905 PATIENT: JORGE GOINS UNIT #: [id number] ROOM/BED: [address] : 86 AGE: 35 SEX: M ATTEND: Raphael Davila MD ADM AUTHOR: Tessa Mccullough DO * ALL edits or amendments must be made on the el [employer]/computer document * Subjective Chief Complaint: assumed care chart reviewed pt seen feeling ok Follow-up lower extremity weakness, hypertensio n, CVA HPI: Getting ready to work with p hysical therapy denies any complaints no chest pain shortness of breath nausea vomiting diarrhea. Review of Systems Constitutional: Denies: chills, fever. Respiratory: Denies: COATES (dyspnea on exertion), SOB. Cardiovascular: Denies: chest pain, palpitations. GI: Denies: abdominal pain, nausea, vomiting. Objective General VS/I O: Vital Signs: Date Time Temp Pulse Resp B/P B/P Pulse O2 O2 Flow FiO2 Mean Ox Delivery Rate 08/14 1613 36.4 74 125/63 83.3 100 08/14 1408 62 138/71 93.6 08/14 1249 36.7 69 17 123/57 79.2 100 08/14 0742 36.9 78 18 120/61 81.0 100 08/14 0527 37.1 68 16 128/73 91.7 100 Room air 08/14 0040 36.5 61 16 148/76 100.0 100 Room air 08/13 2236 68 117/66 82.9 08/13 2004 36.7 90 14 106/61 76.1 99 Room air 08/13 1816 79 17 100/56 70.9 100 08/13 1625 37.1 61 18 202/97 0.0 100 Room air 24 hour I O ending at 0700: 08/14 0700 08/13 1900 Intake Total Output Total 1150 Balance -1150 Output, Urine 1150 PATIENT WEIGHT: Weight (lb): 176 Weight (oz): 9.44 Weight (kg): 80.100 Physical Exam General appearance: alert, awake Head/Eyes: atraumatic Cardiovascular: normal heart sounds, regular rat e rhythm Respiratory: aerating well, clear to auscultatio n Abdomen: non-tender, normal bowel sounds, soft Extremities: no clubbing 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, LE weakness Diagnosis, Assessment Plan Problem List/A P: 1. JENNIFER (acute kidney injury) Resolved, nephrology following, appreciate inpu t 2. Sepsis Continue Zuñiga change every month will treat will with 10 days of meropenem end date 08/18/2020 per ID recommendations. Zuñiga to be changed today we will do a trial of void first. 3. UTI (urinary tract infection) Urine culture positive for Pseudomonas and Ente robacter Continue meropenem for 10 days 4. Bacteremia due to Enterobacter species Continue meropenem Infectious disease following, appreciate input 5. Metabolic encephalopathy Resolved 6. H/O cardiac arrest Patient status post PEA, resolved 7. 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 Spoke with patient about get ting the LP again patient still states he will think about it some more. Continue PT/OT 8. Abnormal MRI of head Could be related to CVA Repeat MRI 07/19/20 showed patchy perive ntricular white matter disease appears improved but not resolved since 06/26/20 and may have related to u nderlying metabolic or toxic disorder and/or vasculitis. Neurology on board. 9. Acute systolic heart failure Resolved Cardiology following, appreciate input 10. Acute CVA (cerebrovascular accident) Suspected to be cardioembolic, patient found to have PFO Cardiology discussed DOMINIK in preparation for pot ential PFO closure. Patient amenable to getting DOMINIK spoke to cardiology sche duled for Monday08/17/20. Continue medical management 11. Acute on chronic anemia Patient status post 2 units PRBCs Hemoglobin stable now. 12. Hyperkalemia Hyperkalemia protocol initiated 5.9 today, losartan stopped by nephro, started ok lokelma. Monitor BMP 13. Hypertensive emergency Blood pressure controlled on current regimen. C ardiology on board. 14. Essential hypertension Continue nifedipine, labetalol, Imdur 15. Aortic dissection History of type B aortic dissection status post thoracic endovascular aortic repair at outside hospital Continue labetalol Manage blood pressure per cardiology 16. Multifocal pneumonia Continue meropenem 17. Acute respiratory failure with hypoxia Resolved, patient extubated prior to downgrade from ICU Now on room air 18. Hyperkalemia Hyperkalemia 5.9 this morning given Kayexalate x1 improved to 5.2. Patient started on Lokelma daily by nephrology -will givew another dose og kayexelate.. Free Text DxA P Notes Free text DxA P notes: we will f/u DVT prophylaxis Heparin at 1631 RPT #:[id number] END OF REPORT 2020 14:27:00-00:[address] [facility] ([facility]) Nephrology Progress Note REPORT#:[id number] REPORT STATUS: Signed DATE:08/13/20 TIME: 1427 PATIENT: JORGE GOINS UNIT #: [id number] ROOM/BED: [facility] : 86 AGE: 35 SEX: M ATTEND: Raphael Davila MD ADM AUTHOR: Jojo York MD * ALL edits or amendments must be made on the [employer] document * Subjective Comments: Events noted Objective General VS/I O: Vital Signs: Date Time Temp Pulse Resp B/P B/P Pulse O2 O2 F low FiO2 Mean Ox Delivery Rate 08/13 1140 99.0 69 20 138/78 98.0 99 Room air 08/13 0743 98.1 69 19 144/81 102.1 100 Room air 08/13 0512 98.6 60 16 203/122 148.8 100 08/13 0037 98.1 60 16 182/89 120.0 100 08/12 1953 98.2 75 7 107/55 72.7 100 08/12 1632 97.9 63 18 179/92 120.9 100 Room air 08/12 1632 97.9 63 18 179/92 120.9 100 Room ai r 08/12 1632 97.9 63 18 179/92 120.9 100 Room air 24 hour I O ending at 0700: 08/13 0700 08/12 1900 Intake Total 500 Output Total 2300 Balance -1800 Intake, Oral 500 Number 1 Bowel Movements Output, Urine 2300 PATIENT WEIGHT: Weight (lb): 176 Weight (oz): 9.44 Weight (kg): 80.100 Medications Active Meds + DC'd Last 24 Hrs Losartan Potassium 50 MG DAILY PO Meropenem 500 MG Q6H IV Sterile Water 10 ML Hydrocodone Bitart/Acetaminophen 1 TAB Q6H PRN P RN PO Nifedipine 30 MG Q12H PO Collagenase 1 APPLIC DAILY TOPICAL Aspirin 81 MG DAILY PO Atorvastatin Calcium 40 MG DAILY PO Isosorbide Mononitrate 30 MG BID PO Acetaminophen 650 MG Q4H PRN PRN PO Famotidine 20 MG DAILY PO Labetalol HCl 600 MG Q8HR PO Heparin Sodium (Porcine) 5,000 UNIT Q12HR SUBQ Heparin Sodium (Porcine) 2,000 UNIT DIALYSIS-DOS E BEFORE IV (CKD) Heparin Sodium (Porcine) 5,000 UNIT DIALYSIS-DOS E AFTER MISC Sodium Chloride 1,000 ML ASDIR PRN IV Dextrose/Water 25 ML ASDIR PRN IV Glucagon 1 MG ASDIR PRN IM Insulin Human Lispro LOW DOSE SCALE ASDIR SUBQ Physical Exam General appearance: no acute distress ENT: moist mucous membranes Neck: no JVD, no masses or swelling Cardiovascular: normal heart sounds, regular rat e and rhythm Respiratory: aerating well, clear to auscultatio n Abdomen: normal bowel sounds, soft Extremities: no edema Musculoskeletal: decreased ROM 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 Results Findings/Data: Laboratory Tests 08/13 0521 Chemistry Sodium (137 - 145 mmol/L) 136 L Potassium (3.4 - 5.0 mmol/L) 5.3 H Chloride (98 - 107 mmol/L) 104 Carbon Dioxide (22 - 30 mmol/L) 24 BUN (9 - 20 mg/dL) 18 Creatinine (0.7 - 1.3 mg/dL) 0.7 Glomerular Filtr Rate (>60) 166 Glucose (74 - 106 mg/dL) 81 Calcium (8.4 - 10.2 mg/dL) 9.0 Laboratory Tests 08/13 0521 Hematology WBC (5.0 - 12.0 x10 3/uL) 4.8 L RBC (4.70 - 6.10 x10 6/uL) 3.05 L Hgb (14.0 - 18.0 g/dL) 8.9 L Hct (37.0 - 49.0 %) 27.9 L MCV (80 - 94 fL) 92 MCH (27 - 31 pg) 29.2 MCHC (33 - 37 g/dL) 31.9 L RDW (11.5 - 15.5 %) 18.0 H Plt Count (130 - 400 x10 3/uL) 254 MPV (9.4 - 16.4 fL) 9.9 Neut % (Auto) (43 - 65 %) 64.4 Lymph % (Auto) (20.5 - 45.5 %) 21.8 Citrus % (Auto) (5.5 - 11.7 %) 8.7 Eos % (Auto) (0.9 - 2.9 %) 4.1 H Baso % (Auto) (0.2 - 1.0 %) 0.4 Neut # (Auto) (2.2 - 4.8 x10 3/uL) 3.10 Lymph # (Auto) (1.3 - 2.9 x10 3/uL) 1.05 L Citrus # (Auto) (0.3 - 0.8 x10 3/uL) 0.42 Eos # (Auto) (0.0 - 0.2 x10 3/uL) 0.20 Baso # (Auto) (0.0 - 0.1 x10 3/uL) 0.02 Immature Gran % (0.0 - 2.0 %) 0.6 Nucleated RBC % (0 - 1.0 %) 0.0 Diagnosis, Assessment Plan Free Text A P: JENNIFER hypotension AAA lactic acidosis severe metabolic acidosis- resolved Metabolic alkalosis - resolved cr is stable Monitor potassium levels We will follow at 1427 RPT #:[id number] END OF REPORT 2020 14:27:00-00:00 [facility] Nephrology Progress Note REPORT#:[id number] REPORT STATUS: Signed DATE:08/13/20 TIME: 1427 PATIENT: JORGE GOINS UNIT #: [id number] ROOM/BED: [address] : [birth year] AGE: 35 SEX: M ATTEND: Raphael Davila MD ADM AUTHOR: Jojo York MD * ALL edits or amendments must be made on the rimidi/computer document * See Addendum Subjective Comments: Events noted Objective General VS/I O: Vital Signs: Date Time Temp Pulse Resp B/P B/P Pulse O2 O2 F low FiO2 Mean Ox Delivery Rate 08/13 1140 99.0 69 20 138/78 98.0 99 Room air 08/13 0743 98.1 69 19 144/81 102.1 100 Room air 08/13 0512 98.6 60 16 203/122 148.8 100 08/13 0037 98.1 60 16 182/89 120.0 100 08/12 1953 98.2 75 7 107/55 72.7 100 08/12 1632 97.9 63 18 179/92 120.9 100 Room ai r 08/12 1632 97.9 63 18 179/ 120.9 100 Room air 08/12 1632 97.9 63 18 179 120.9 100 Room air 24 hour I O ending at 0700: 08/13 0700 08/12 1900 Intake Total 500 Output Total 2300 Balance -1800 Intake, Oral 500 Number 1 Bowel Movements Output, Urine 2300 PATIENT WEIGHT: Weight (lb): 176 Weight (oz): 9.44 Weight (kg): 80.100 Medications Active Meds + DC'd Last 24 Hrs Losartan Potassium 50 MG DAILY PO Meropenem 500 MG Q6H IV Sterile Water 10 ML Hydrocodone Bitart/Acetaminophen 1 TAB Q6H PRN P RN PO Nifedipine 30 MG Q12H PO Collagenase 1 APPLIC DAILY TOPICAL Aspirin 81 MG DAILY PO Atorvastatin Calcium 40 MG DAILY PO Isosorbide Mononitrate 30 MG BID PO Acetaminophen 650 MG Q4H PRN PRN PO Famotidine 20 MG DAILY PO Labetalol HCl 600 MG Q8HR PO Heparin Sodium (Porcine) 5,000 UNIT Q12HR SUBQ Heparin Sodium (Porcine) 2,000 UNIT DIALYSIS-DOS E BEFORE IV (CKD) Heparin Sodium (Porcine) 5,000 UNIT DIALYSIS-DOS E AFTER MISC Sodium Chloride 1,000 ML ASDIR PRN IV Dextrose/Water 25 ML ASDIR PRN IV Glucagon 1 MG ASDIR PRN IM Insulin Human Lispro LOW DOSE SCALE ASDIR SUBQ Physical Exam General appearance: no acute distress ENT: moist mucous membranes Neck: no JVD, no masses or swelling Cardiovascular: normal heart sounds, regular rat e and rhythm Respiratory: aerating well, clear to auscultatio n Abdomen: normal bowel sounds, soft Extremities: no edema Musculoskeletal: decreased ROM 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 Results Findings/Data: Laboratory Tests 08/13 0521 Chemistry Sodium (137 - 145 mmol/L) 136 L Potassium (3.4 - 5.0 mmol/L) 5.3 H Chloride (98 - 107 mmol/L) 104 Carbon Dioxide (22 - 30 mmol/L) 24 BUN (9 - 20 mg/dL) 18 Creatinine (0.7 - 1.3 mg/dL) 0.7 Glomerular Filtr Rate (>60) 166 Glucose (74 - 106 mg/dL) 81 Calcium (8.4 - 10.2 mg/dL) 9.0 Laboratory Tests 08/13 0521 Hematology WBC (5.0 - 12.0 x10 3/uL) 4.8 L RBC (4.70 - 6.10 x10 6/uL) 3.05 L Hgb (14.0 - 18.0 g/dL) 8.9 L Hct (37.0 - 49.0 %) 27.9 L MCV (80 - 94 fL) 92 MCH (27 - 31 pg) 29.2 MCHC (33 - 37 g/dL) 31.9 L RDW (11.5 - 15.5 %) 18.0 H Plt Count (130 - 400 x10 3/uL) 254 MPV (9.4 - 16.4 fL) 9.9 Neut % (Auto) (43 - 65 %) 64.4 Lymph % (Auto) (20.5 - 45.5 %) 21.8 Citrus % (Auto) (5.5 - 11.7 %) 8.7 Eos % (Auto) (0.9 - 2.9 %) 4.1 H Baso % (Auto) (0.2 - 1.0 %) 0.4 Neut # (Auto) (2.2 - 4.8 x10 3/uL) 3.10 Lymph # (Auto) (1.3 - 2.9 x10 3/uL) 1.05 L Citrus # (Auto) (0.3 - 0.8 x10 3/uL) 0.42 Eos # (Auto) (0.0 - 0.2 x10 3/uL) 0.20 Baso # (Auto) (0.0 - 0.1 x10 3/uL) 0.02 Immature Gran % (0.0 - 2.0 %) 0.6 Nucleated RBC % (0 - 1.0 %) 0.0 Diagnosis, Assessment Plan Free Text A P: JENNIFER hypotension AAA lactic acidosis severe metabolic acidosis- resolved Metabolic alkalosis - resolved cr is stable Monitor potassium levels We will follow at 142 Addendum 1: 08/13/20 1428 by Jojo York MD Patient has been having repeated episodes of hyp erkalemia-we will hold the losartan due to that I will go ahead and increase the nifedipine to 3 0 every 6 hours as he was receiving in the past for elevated blood pressur e A.m. labs at 1429 RPT #:[id number] END OF REPORT 2020 14:27:00-00:[address] [facility] ([facility]) Nephrology Progress Note REPORT#:[id number] REPORT STATUS: Signed DATE:08/13/20 TIME: 1427 PATIENT: JORGE GOINS UNIT #: [id number] ROOM/BED: [address] : [birth year] AGE: 35 SEX: M ATTEND: Raphael Davila MD ADM AUTHOR: Jojo York MD * ALL edits or amendments must be made on the rimidi/computer document * See Addendum Subjective Comments: Events noted Objective General VS/I O: Vital Signs: Date Time Temp Pulse Resp B/P B/P Pulse O2 O2 F low FiO2 Mean Ox Delivery Rate 08/13 1140 99.0 69 20 138/78 98.0 99 Room air 08/13 0743 98.1 69 19 144/81 102.1 100 Room air 08/13 0512 98.6 60 16 203/122 148.8 100 08/13 0037 98.1 60 16 182/89 120.0 100 08/12 1953 98.2 75 7 107/55 72.7 100 08/12 1632 97.9 63 18 179/92 120.9 100 Room air 08/12 1632 97.9 63 18 179/92 120.9 100 Room air 08/12 1632 97.9 63 18 179/92 120.9 100 Room air 24 hour I O ending at 0700: 08/13 0700 08/12 1900 Intake Total 500 Output Total 2300 Balance -1800 Intake, Oral 500 Number 1 Bowel Movements Output, Urine 2300 PATIENT WEIGHT: Weight (lb): 176 Weight (oz): 9.44 Weight (kg): 80.100 Medications Active Meds + DC'd Last 24 Hrs Losartan Potassium 50 MG DAILY PO Meropenem 500 MG Q6H IV Sterile Water 10 ML Hydrocodone Bitart/Acetaminophen 1 TAB Q6H PRN P RN PO Nifedipine 30 MG Q12H PO Collagenase 1 APPLIC DAILY TOPICAL Aspirin 81 MG DAILY PO Atorvastatin Calcium 40 MG DAILY PO Isosorbide Mononitrate 30 MG BID PO Acetaminophen 650 MG Q4H PRN PRN PO Famotidine 20 MG DAILY PO Labetalol HCl 600 MG Q8HR PO Heparin Sodium (Porcine) 5,000 UNIT Q12HR SUBQ Heparin Sodium (Porcine) 2,000 UNIT DIALYSIS-DOS E BEFORE IV (CKD) Heparin Sodium (Porcine) 5,000 UNIT DIALYSIS-DOS E AFTER MISC Sodium Chloride 1,000 ML ASDIR PRN IV Dextrose/Water 25 ML ASDIR PRN IV Glucagon 1 MG ASDIR PRN IM Insulin Human Lispro LOW DOSE SCALE ASDIR SUBQ Physical Exam General appearance: no acute distress ENT: moist mucous membranes Neck: no JVD, no masses or swelling Cardiovascular: normal heart sounds, regular rat e and rhythm Respiratory: aerating well, clear to auscultatio n Abdomen: normal bowel sounds, soft Extremities: no edema Musculoskeletal: decreased ROM 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 Results Findings/Data: Laboratory Tests 08/13 0521 Chemistry Sodium (137 - 145 mmol/L) 136 L Potassium (3.4 - 5.0 mmol/L) 5.3 H Chloride (98 - 107 mmol/L) 104 Carbon Dioxide (22 - 30 mmol/L) 24 BUN (9 - 20 mg/dL) 18 Creatinine (0.7 - 1.3 mg/dL) 0.7 Glomerular Filtr Rate (>60) 166 Glucose (74 - 106 mg/dL) 81 Calcium (8.4 - 10.2 mg/dL) 9.0 Laboratory Tests 08/13 0521 Hematology WBC (5.0 - 12.0 x10 3/uL) 4.8 L RBC (4.70 - 6.10 x10 6/uL) 3.05 L Hgb (14.0 - 18.0 g/dL) 8.9 L Hct (37.0 - 49.0 %) 27.9 L MCV (80 - 94 fL) 92 MCH (27 - 31 pg) 29.2 MCHC (33 - 37 g/dL) 31.9 L RDW (11.5 - 15.5 %) 18.0 H Plt Count (130 - 400 x10 3/uL) 254 MPV (9.4 - 16.4 fL) 9.9 Neut % (Auto) (43 - 65 %) 64.4 Lymph % (Auto) (20.5 - 45.5 %) 21.8 Citrus % (Auto) (5.5 - 11.7 %) 8.7 Eos % (Auto) (0.9 - 2.9 %) 4.1 H Baso % (Auto) (0.2 - 1.0 %) 0.4 Neut # (Auto) (2.2 - 4.8 x10 3/uL) 3.10 Lymph # (Auto) (1.3 - 2.9 x10 3/uL) 1.05 L Citrus # (Auto) (0.3 - 0.8 x10 3/uL) 0.42 Eos # (Auto) (0.0 - 0.2 x10 3/uL) 0.20 Baso # (Auto) (0.0 - 0.1 x10 3/uL) 0.02 Immature Gran % (0.0 - 2.0 %) 0.6 Nucleated RBC % (0 - 1.0 %) 0.0 Diagnosis, Assessment Plan Free Text A P: JENNIFER hypotension AAA lactic acidosis severe metabolic acidosis- resolved Metabolic alkalosis - resolved cr is stable Monitor potassium levels We will follow at 1427 Addendum 1: 08/13/20 1428 by Jojo York MD Patient has been having repeated episodes of hyp erkalemia-we will hold the losartan due to that I will go ahead and increase the nifedipine to 3 0 every 6 hours as he was receiving in the past for elevated blood pressur e A.m. labs at 1429 Addendum 2: 08/13/20 1430 by Jojo York MD Due to persistent hyperkalemia-we will go ahead and start Lokelma daily at 1430 RPT #:[id number] END OF REPORT 2020 13:12:00-00:00 [facility]) Cardiology Progress Note REPORT#:[id number] REPORT STATUS: Signed DATE:08/13/20 TIME: 1312 PATIENT: JORGE GOINS UNIT #: [id number] ROOM/BED: [address] : [birth year] AGE: 35 SEX: M ATTEND: Raphael Davila MD ADM AUTHOR: Giancarlo Phan MD * ALL edits or amendments must be made on the el [employer]/computer document * Subjective Free Text Subj Notes Free Text Subj Notes: Patient did well overnight. Denies chest pain, s hortness of breath, palpitations or syncope. Ove rall really no other acute complaints at this time. Objective Physical Exam Head/Eyes: atraumatic, clear cornea, EOMI, brooklynn l conjunctiva/sclera, normocephalic, PERRL, PERRLA ENT: normal nose, normal pharynx, decannulated Neck: full range of motion, non-tender, normal thyroid, supple/no meningismus, no bruit/NL carotids, no JVD, no lymphadenopathy , no masses or swelling Cardiovascular: CV assessment: regular rate and rhythm, normal heart sounds Respiratory: on oxygen, clear to auscultation, n o distress Abdomen: non-tender, normal bowel sounds , no distention, no guarding, no mass/ organomegaly, no pulsatile mass, no rebound Upper extremity: UE assessment: normal capillary refill, no timur a Lower extremity: LE assessment: normal capillary refill, no timur a Musculoskeletal: full range of motion, normal in spection 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, oriented X 3, normal speech Skin: dry Lymphatics: axilla normal, inguinal normal, neck normal, no lymphadenopathy Psychiatry: normal judgment/insight, normal mood Diagnosis, Assessment Plan Free Text DxA P Notes Free Text DxA P Notes: 1. Hypertensive urgency/emergency - presented with severely elevated BP requiring 2 IV infusions, subsequently suffered PEA cardiac arrest - BP control improving - cont hydralazine 100mg Q8H, labetalol 600mg Q 8H - nifedipine 30mg QID, patients blood pressure much better controlled - losartan 50mg QD has been started will cont t o monitor 2. Cardiac arrest - PEA in etiology, pt became hypothermic and fan bsequently bradycardic 3. Type B aortic dissection s/p EVAR - has residual descending aortic dissection ext ending into iliacs. No evidence of rupture on CTA. Reviewed by vascular surgery - appreciate assitance - optimal BP Control as above 4. Acute on chronic systolic heart failure -Improved significantly 5. Shock - resolved 6. JENNIFER on CKD Patient has not received dialysis in some time 7. Acute hypoxic respiratory failure -Patient has been decannulated from a trach per spective 8. Stroke: -We will plan for DOMINIK on Monday Electronically Signed by Giancarlo Pahn MD on 07/27 02/13 at 1317 RPT #:[id number] END OF REPORT 2020 13:07:00-00:00 [facility] Hospitalist Progress Note REPORT#:[id number] REPORT STATUS: Signed DATE:08/13/20 TIME: 1307 PATIENT: JORGE GOINS UNIT #: [id number] ROOM/BED: [address] : [birth year] AGE: 35 SEX: M ATTEND: Raphael Davila MD ADM AUTHOR: Tessa Mccullough DO * ALL edits or amendments must be made on the rimidi/computer document * Subjective Chief Complaint: assumed care chart reviewed pt seen feeling ok Follow-up lower extremity weakness, hypertension , CVA HPI: Denies any chest pain shortness of breat h now more amenable to getting the DOMINIK as well as the not proceed. Blood pressures note d to be very labile ranging from systolic 138-203. Review of Systems Constitutional: Denies: chills, fever. Respiratory: Denies: COATES (dyspnea on exertion), SOB. Cardiovascular: Denies: chest pain, palpitations. GI: Denies: abdominal pain, nausea, vomiting. Neuro: Reports: other (LE weakness). Objective General VS/I O: Vital Signs: Date Time Temp Pulse Resp B/P B/P Pulse O2 O2 F low FiO2 Mean Ox Delivery Rate 08/13 1140 37.2 69 20 138/78 98.0 99 Room air 08/13 0743 36.7 69 19 144/81 102.1 100 Room ai r 08/13 0512 37.0 60 16 203/122 148.8 100 08/13 0037 36.7 60 16 182/89 120.0 100 08/12 1953 36.8 75 7 107/55 72.7 100 08/12 1632 36.6 63 18 179/92 120.9 100 Room air 08/12 1632 36.6 63 18 179/92 120.9 100 Room air 08/12 1632 36.6 63 18 179/92 120.9 100 Room ai r 24 hour I O ending at 0700: 08/13 0700 08/12 1900 Intake Total 500 Output Total 2300 Balance -1800 Intake, Oral 500 Number 1 Bowel Movements Output, Urine 2300 PATIENT WEIGHT: Weight (lb): 176 Weight (oz): 9.44 Weight (kg): 80.100 Physical Exam General appearance: alert, awake Head/Eyes: atraumatic Cardiovascular: normal heart sounds, regular rat e rhythm Respiratory: aerating well, clear to auscultatio n Abdomen: non-tender, normal bowel sounds, soft Extremities: no clubbing 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, LE weakness Results Findings/Data: Laboratory Tests 08/13 520 Chemistry Sodium (137 - 145 mmol/L) 136 L Potassium (3.4 - 5.0 mmol/L) 5.3 H Chloride (98 - 107 mmol/L) 104 Carbon Dioxide (22 - 30 mmol/L) 24 BUN (9 - 20 mg/dL) 18 Creatinine (0.7 - 1.3 mg/dL) 0.7 Glomerular Filtr Rate (>60) 166 Glucose (74 - 106 mg/dL) 81 Calcium (8.4 - 10.2 mg/dL) 9.0 Laboratory Tests 08/13 05 Hematology WBC (5.0 - 12.0 x10 3/uL) 4.8 L RBC (4.70 - 6.10 x10 6/uL) 3.05 L Hgb (14.0 - 18.0 g/dL) 8.9 L Hct (37.0 - 49.0 %) 27.9 L MCV (80 - 94 fL) 92 MCH (27 - 31 pg) 29.2 MCHC (33 - 37 g/dL) 31.9 L RDW (11.5 - 15.5 %) 18.0 H Plt Count (130 - 400 x10 3/uL) 254 MPV (9.4 - 16.4 fL) 9.9 Neut % (Auto) (43 - 65 %) 64.4 Lymph % (Auto) (20.5 - 45.5 %) 21.8 Citrus % (Auto) (5.5 - 11.7 %) 8.7 Eos % (Auto) (0.9 - 2.9 %) 4.1 H Baso % (Auto) (0.2 - 1.0 %) 0.4 Neut # (Auto) (2.2 - 4.8 x10 3/uL) 3.10 Lymph # (Auto) (1.3 - 2.9 x10 3/uL) 1.05 L Citrus # (Auto) (0.3 - 0.8 x10 3/uL) 0.42 Eos # (Auto) (0.0 - 0.2 x10 3/uL) 0.20 Baso # (Auto) (0.0 - 0.1 x10 3/uL) 0.02 Immature Gran % (0.0 - 2.0 %) 0.6 Nucleated RBC % (0 - 1.0 %) 0.0 Diagnosis, Assessment Plan Problem List/A P: 1. JENNIFER (acute kidney injury) Resolved, nephrology following, appreciate inpu t 2. Sepsis Continue Zuñiga change every month will treat will with 10 days of meropenem end date 08/18/2020 per ID recommendations. 3. UTI (urinary tract infection) Urine culture positive for Pseudomonas and Ente robacter Continue meropenem for 10 days 4. Bacteremia due to Enterobacter species Continue meropenem Infectious disease following, appreciate input 5. Metabolic encephalopathy Resolved 6. H/O cardiac arrest Patient status post PEA, resolved 7. 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 Spoke with patient about getting the LP again to day seems more amenable to it neurology made aware will see patient today. Jesse schumacher consult IR if patient confirms that he is okay with getting LP. Continue PT/OT 8. Abnormal MRI of head Could be related to CVA Repeat MRI 07/19/20 showed patchy perive ntricular white matter disease appears improved but not resolved since 06/26/20 and may have related to u nderlying metabolic or toxic disorder and/or vasculitis. Neurology on board. 9. Acute systolic heart failure Resolved Cardiology following, appreciate input 10. Acute CVA (cerebrovascular accident) Suspected to be cardioembolic, patient found to have PFO Cardiology discussed DOMINIK in preparation for pot ential PFO closure, patient continues to refuse, however now more amenable t o the idea of undergoing DOMINIK. Will confirm and reconsult cardiology. Continue medical management 11. Acute on chronic anemia Patient status post 2 units PRBCs Hemoglobin stable now. 12. Hyperkalemia Hyperkalemia protocol initiated Monitor BMP 13. Hypertensive emergency Blood pressure labile patie nt is on nifedipine labetalol. Cardiology on board. 14. Essential hypertension Continue nifedipine, labetalol, Imdur 15. Aortic dissection History of type B aortic dissection status post thoracic endovascular aortic repair at outside hospital Continue labetalol Manage blood pressure per cardiology 16. Multifocal pneumonia Continue meropenem 17. Acute respiratory failure with hypoxia Resolved, patient extubated prior to downgrade from ICU Now on room air Free Text DxA P Notes Free text DxA P notes: we will f/u DVT prophylaxis Heparin at 1326 RPT #:[id number] END OF REPORT 2020-08-12 17:24:00-00:00 [facility] Hospitalist Progress Note REPORT#:[id number] REPORT STATUS: Signed DATE:08/12/20 TIME: 1724 PATIENT: JORGE GOINS UNIT #: [id number] ROOM/BED: [address] : [birth year] AGE: 34 SEX: M ATTEND: Raphael Davila MD ADM AUTHOR: Tessa Wolfe MD * ALL edits or amendments must be made on the el [employer]/computer document * Subjective Chief Complaint: assumed care chart reviewed pt seen feeling ok Follow-up lower extremity weakness, hypertension , CVA Review of Systems All systems rev neg: except as marked Objective General VS/I O: Vital Signs: Date Time Temp Pulse Resp B/P B/P Pulse O2 O2 F low FiO2 Mean Ox Delivery Rate 08/12 1632 97.9 63 18 179/92 120.9 100 Room ai r 08/12 1140 97.7 65 18 120/62 81.2 100 Room air 08/12 0743 97.9 70 20 128/65 85.6 100 Room air 08/12 0513 97.5 62 16 186/105 132.0 100 08/12 0113 69 18 158/82 107.3 100 08/11 1959 98.4 80 16 150/71 97.4 100 PATIENT WEIGHT: Weight (lb): 176 Weight (oz): 9.44 Weight (kg): 80.100 Medications: Active Meds + DC'd Last 24 Hrs Meropenem 500 MG Q6H IV Sterile Water 10 ML Hydrocodone Bitart/Acetaminophen 1 TAB Q6H PRN P RN PO Nifedipine 30 MG Q12H PO Collagenase 1 APPLIC DAILY TOPICAL Aspirin 81 MG DAILY PO Atorvastatin Calcium 40 MG DAILY PO Isosorbide Mononitrate 30 MG BID PO Acetaminophen 650 MG Q4H PRN PRN PO Famotidine 20 MG DAILY PO Labetalol HCl 600 MG Q8HR PO Heparin Sodium (Porcine) 5,000 UNIT Q12HR SUBQ Heparin Sodium (Porcine) 2,000 UNIT DIALYSIS-DOS E BEFORE IV (CKD) Heparin Sodium (Porcine) 5,000 UNIT DIALYSIS-DOS E AFTER MISC Sodium Chloride 1,000 ML ASDIR PRN IV Dextrose/Water 25 ML ASDIR PRN IV Glucagon 1 MG ASDIR PRN IM Insulin Human Lispro LOW DOSE SCALE ASDIR SUBQ Physical Exam General appearance: alert, awake Head/Eyes: atraumatic Cardiovascular: normal heart sounds, regular rat e rhythm Respiratory: aerating well, clear to auscultatio n Abdomen: non-tender, normal bowel sounds, soft Extremities: no clubbing Results Findings/Data: Laboratory Tests 08/12 181 Chemistry Sodium (137 - 145 mmol/L) 136 L 138 Potassium (3.4 - 5.0 mmol/L) 4.9 4.5 Chloride (98 - 107 mmol/L) 104 104 Carbon Dioxide (22 - 30 mmol/L) 26 25 BUN (9 - 20 mg/dL) 19 19 Creatinine (0.7 - 1.3 mg/dL) 0.8 0.9 Glomerular Filtr Rate (>60) 143 125 Glucose (74 - 106 mg/dL) 91 91 POC Glucose (74 - 106 MG/DL) 96 Calcium (8.4 - 10.2 mg/dL) 9.0 9.1 Total Bilirubin (0.2 - 1.3 mg/dL) 0.6 0.6 Conjugated Bilirubin (0 - 0.3 mg/dL) 0 0 Unconjugated Bilirubin (0 - 1.1 mg/dL) 0.2 0.1 AST (15 - 46 U/L) 46 46 ALT (0 - 34 U/L) 57 H 58 H Total Alk Phosphatase (38 - 126 U/L) 148 H 155 H Total Protein (6.3 - 8.2 g/dL) 7.2 7.2 Albumin (3.5 - 5.0 g/dL) 3.6 3.6 Laboratory Tests 08/12 08/11 0447 1814 Hematology WBC (5.0 - 12.0 x10 3/uL) 5.0 4.6 L RBC (4.70 - 6.10 x10 6/uL) 2.70 L 2.81 L Hgb (14.0 - 18.0 g/dL) 7.9 L 8.3 L Hct (37.0 - 49.0 %) 24.8 L 26.1 L MCV (80 - 94 fL) 92 93 MCH (27 - 31 pg) 29.3 29.5 MCHC (33 - 37 g/dL) 31.9 L 31.8 L RDW (11.5 - 15.5 %) 18.3 H 18.3 H Plt Count (130 - 400 x10 3/uL) 222 214 MPV (9.4 - 16.4 fL) 9.9 9.8 Neut % (Auto) (43 - 65 %) 65.0 Lymph % (Auto) (20.5 - 45.5 %) 21.2 Citrus % (Auto) (5.5 - 11.7 %) 7.2 Eos % (Auto) (0.9 - 2.9 %) 5.5 H Baso % (Auto) (0.2 - 1.0 %) 0.2 Neut # (Auto) (2.2 - 4.8 x10 3/uL) 2.97 Lymph # (Auto) (1.3 - 2.9 x10 3/uL) 0.97 L Citrus # (Auto) (0.3 - 0.8 x10 3/uL) 0.33 Eos # (Auto) (0.0 - 0.2 x10 3/uL) 0.25 H Baso # (Auto) (0.0 - 0.1 x10 3/uL) 0.01 Total Counted (#CELLS) 100 Immature Gran % (0.0 - 2.0 %) 0.9 Seg Neutrophils % (43 - 65 %) 74 H Lymphocytes % (Manual) (20.5 - 45.5 %) 12 L Atypical Lymphs % (0 - 1 %) 5 H Monocytes % (Manual) (5.5 - 11.7 %) 5 L Eosinophils % (Manual) (0.9 - 2.9 %) 2 Basophils % (Manual) (0.2 - 1.0 %) 1 Nucleated RBC % (0 - 1.0 %) 0.0 Platelet Estimate (ADEQUATE) ADEQUATE Plt Morphology Comment (NORMAL) NORMAL Polychromasia (NONE SEEN) 1+ H Anisocytosis (NONE SEEN) 1+ H Microcytosis (NONE SEEN) 1+ H Diagnosis, Assessment Plan Free Text DxA P Notes Free text DxA P notes: 1. JENNIFER (acute kidney injury) Resolved, nephrology following, appreciate inpu t 2. Sepsis Due to UTI and bacteremia Continue meropenem Infectious disease following,rec noted,keep fol ey 3. UTI (urinary tract infection) Urine culture positive for Pseudomonas and Ente robacter Continue meropenem Infectious disease following, appreciate input 4. Bacteremia due to Enterobacter species Continue meropenem Infectious disease following, appreciate input 5. Metabolic encephalopathy Resolved 6. H/O cardiac arrest Patient status post PEA, resolved 7. 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 Abnormal MRI of head Could be related to CVA Repeat MRI 07/19/20 showed patchy perive ntricular white matter disease appears improved but not resolved since 06/26/20 and may have related to u nderlying metabolic or toxic disorder and/or vasculitis. Neurology on board, appreciate recommendations 9. Acute systolic heart failure Resolved Cardiology following, appreciate input 10. Acute CVA (cerebrovascular accident) Suspected to be cardioembolic, patient found to have PFO Cardiology discussed DOMINIK in preparation for pot ential PFO closure, patient continues to refuse Continue medical management 11. Acute on chronic anemia Patient status post 2 units PRBCs Hemoglobin improved from 6.6 to 7.3 Monitor hemoglobin Patient denies any overt blood loss 12. Hyperkalemia Hyperkalemia protocol initiated Monitor BMP 13. Hypertensive emergency Resolved 14. Essential hypertension Continue nifedipine, labetalol, Imdur 15. Aortic dissection History of type B aortic dissection status post thoracic endovascular aortic repair at outside hospital Continue labetalol Manage blood pressure Vascular following, appreciate input 16. Multifocal pneumonia Continue meropenem 17. Acute respiratory failure with hypoxia Resolved, patient extubated prior to downgrade from ICU Now on room air we will f/u Electronically Signed by Tessa Wolfe MD on at 2330 RPT #:[id number] END OF REPORT 2020-08-12 16:31:00-00:00 [facility] Nephrology Progress Note REPORT#:[id number] REPORT STATUS: Signed DATE:08/12/20 TIME: 1631 PATIENT: JORGE GOINS UNIT #: [id number] ROOM/BED: [address] : [birth year] AGE: 34 SEX: M ATTEND: Raphael Davila MD ADM AUTHOR: Jojo York MD * ALL edits or amendments must be made on the rimidi/computer document * Subjective Comments: no new comp Objective General VS/I O: Vital Signs: Date Time Temp Pulse Resp B/P B/P Pulse O2 O2 F low FiO2 Mean Ox Delivery Rate 08/12 1140 97.7 65 18 120/62 81.2 100 Room air 08/12 0743 97.9 70 20 128/65 85.6 100 Room air 08/12 0513 97.5 62 16 186/105 132.0 100 08/12 0113 69 18 158/82 107.3 100 08/11 1959 98.4 80 16 150/71 97.4 100 08/11 1635 98.4 63 20 167/86 112.6 100 Room air PATIENT WEIGHT: Weight (lb): 176 Weight (oz): 9.44 Weight (kg): 80.100 Medications Active Meds + DC'd Last 24 Hrs Meropenem 500 MG Q6H IV Sterile Water 10 ML Hydrocodone Bitart/Acetaminophen 1 TAB Q6H PRN P RN PO Nifedipine 30 MG Q12H PO Collagenase 1 APPLIC DAILY TOPICAL Aspirin 81 MG DAILY PO Atorvastatin Calcium 40 MG DAILY PO Isosorbide Mononitrate 30 MG BID PO Acetaminophen 650 MG Q4H PRN PRN PO Famotidine 20 MG DAILY PO Labetalol HCl 600 MG Q8HR PO Heparin Sodium (Porcine) 5,000 UNIT Q12HR SUBQ Heparin Sodium (Porcine) 2,000 UNIT DIALYSIS-DOS E BEFORE IV (CKD) Heparin Sodium (Porcine) 5,000 UNIT DIALYSIS-DOS E AFTER MISC Sodium Chloride 1,000 ML ASDIR PRN IV Dextrose/Water 25 ML ASDIR PRN IV Glucagon 1 MG ASDIR PRN IM Insulin Human Lispro LOW DOSE SCALE ASDIR SUBQ Physical Exam General appearance: no acute distress ENT: moist mucous membranes Neck: no JVD, no masses or swelling Cardiovascular: normal heart sounds, regular rat e and rhythm Respiratory: aerating well, clear to auscultatio n Abdomen: normal bowel sounds, soft Extremities: no edema Musculoskeletal: decreased ROM 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 Results Findings/Data: Laboratory Tests 08/12 08/11 08/11 08/11 0447 1999 1814 1634 Chemistry Sodium (137 - 145 mmol/L) 136 L 138 Potassium (3.4 - 5.0 mmol/L) 4.9 4.5 Chloride (98 - 107 mmol/L) 104 104 Carbon Dioxide (22 - 30 mmol/L) 26 25 BUN (9 - 20 mg/dL) 19 19 Creatinine (0.7 - 1.3 mg/dL) 0.8 0.9 Glomerular Filtr Rate (>60) 143 125 Glucose (74 - 106 mg/dL) 91 91 POC Glucose (74 - 106 MG/DL) 96 78 Calcium (8.4 - 10.2 mg/dL) 9.0 9.1 Total Bilirubin (0.2 - 1.3 mg/dL) 0.6 0.6 Conjugated Bilirubin (0 - 0.3 mg/dL) 0 0 Unconjugated Bilirubin (0 - 1.1 mg/dL) 0.2 0.1 AST (15 - 46 U/L) 46 46 ALT (0 - 34 U/L) 57 H 58 H Total Alk Phosphatase (38 - 126 U/L) 148 H 155 H Total Protein (6.3 - 8.2 g/dL) 7.2 7.2 Albumin (3.5 - 5.0 g/dL) 3.6 3.6 Laboratory Tests 08/12 08/11 0447 1814 Hematology WBC (5.0 - 12.0 x10 3/uL) 5.0 4.6 L RBC (4.70 - 6.10 x10 6/uL) 2.70 L 2.81 L Hgb (14.0 - 18.0 g/dL) 7.9 L 8.3 L Hct (37.0 - 49.0 %) 24.8 L 26.1 L MCV (80 - 94 fL) 92 93 MCH (27 - 31 pg) 29.3 29.5 MCHC (33 - 37 g/dL) 31.9 L 31.8 L RDW (11.5 - 15.5 %) 18.3 H 18.3 H Plt Count (130 - 400 x10 3/uL) 222 214 MPV (9.4 - 16.4 fL) 9.9 9.8 Neut % (Auto) (43 - 65 %) 65.0 Lymph % (Auto) (20.5 - 45.5 %) 21.2 Citrus % (Auto) (5.5 - 11.7 %) 7.2 Eos % (Auto) (0.9 - 2.9 %) 5.5 H Baso % (Auto) (0.2 - 1.0 %) 0.2 Neut # (Auto) (2.2 - 4.8 x10 3/uL) 2.97 Lymph # (Auto) (1.3 - 2.9 x10 3/uL) 0.97 L Citrus # (Auto) (0.3 - 0.8 x10 3/uL) 0.33 Eos # (Auto) (0.0 - 0.2 x10 3/uL) 0.25 H Baso # (Auto) (0.0 - 0.1 x10 3/uL) 0.01 Total Counted (#CELLS) 100 Immature Gran % (0.0 - 2.0 %) 0.9 Seg Neutrophils % (43 - 65 %) 74 H Lymphocytes % (Manual) (20.5 - 45.5 %) 12 L Atypical Lymphs % (0 - 1 %) 5 H Monocytes % (Manual) (5.5 - 11.7 %) 5 L Eosinophils % (Manual) (0.9 - 2.9 %) 2 Basophils % (Manual) (0.2 - 1.0 %) 1 Nucleated RBC % (0 - 1.0 %) 0.0 Platelet Estimate (ADEQUATE) ADEQUATE Plt Morphology Comment (NORMAL) NORMAL Polychromasia (NONE SEEN) 1+ H Anisocytosis (NONE SEEN) 1+ H Microcytosis (NONE SEEN) 1+ H Diagnosis, Assessment Plan Free Text A P: JENNIFER hypotension AAA lactic acidosis severe metabolic acidosis- resolved Metabolic alkalosis - resolved cr is stable specimen is hemolysed check labs in am at 1631 RPT #:[id number] END OF REPORT 2020-08-11 14:24:00-00:00 [facility] Hospitalist Progress Note REPORT#:[id number] REPORT STATUS: Signed DATE:08/11/20 TIME: 1424 PATIENT: JORGE GOINS UNIT #: [id number] ROOM/BED: [address] : [birth year] AGE: 34 SEX: M ATTEND: Raphael Davila MD ADM AUTHOR: Ramila Vee MD * ALL edits or amendments must be made on the rimidi/computer document * Subjective Chief Complaint: Follow-up lower extremity weakness, hypertension , CVA Patient reports: No: complaints. Review of Systems Constitutional: Denies: chills, fever. Respiratory: Denies: productive cough (sputum), SOB. Cardiovascular: Denies: chest pain, palpitations. GI: Denies: abdominal pain, nausea, vomiting. Objective General VS/I O: Vital Signs: Date Time Temp Pulse Resp B/P B/P Pulse O2 O2 F low FiO2 Mean Ox Delivery Rate 08/11 1206 36.8 71 20 109/46 66.9 100 Room air 08/11 0812 36.7 73 20 138/54 82.3 100 Room air 08/11 0530 67 174/86 115.3 08/11 0529 36.9 71 16 100 08/11 0159 36.7 73 18 151/69 96.4 100 Room air 08/10 2027 36.4 73 18 120/61 80.8 99 Room air 08/10 2027 36.4 73 18 120/61 80.8 99 Room air 08/10 1657 36.8 69 18 134/66 88.7 100 Room air 24 hour I O ending at 0700: 08/11 0700 08/10 1900 Intake Total 1875 Output Total 575 800 Balance -575 1075 Intake, Oral 1675 Intake, 200 Packed Cells Number 1 Bowel Movements Output, Urine 575 800 PATIENT WEIGHT: Weight (lb): 176 Weight (oz): 9.44 Weight (kg): 80.100 Medications: Active Meds + DC'd Last 24 Hrs Furosemide 40 MG ONCE ONE IV (DC) Calcium Gluconate/Sodium Chloride 50 ML ONCE ONE IV (DC) Dextrose/Water 50 ML ONCE ONE IV (DC) Insulin Human Regular 10 UNIT ONCE ONE IV (DC) Meropenem 500 MG Q6H IV Sterile Water 10 ML Hydrocodone Bitart/Acetaminophen 1 TAB Q6H PRN P RN PO Nifedipine 30 MG Q12H PO Collagenase 1 APPLIC DAILY TOPICAL Aspirin 81 MG DAILY PO Atorvastatin Calcium 40 MG DAILY PO Isosorbide Mononitrate 30 MG BID PO Acetaminophen 650 MG Q4H PRN PRN PO Famotidine 20 MG DAILY PO Labetalol HCl 600 MG Q8HR PO Heparin Sodium (Porcine) 5,000 UNIT Q12HR SUBQ Heparin Sodium (Porcine) 2,000 UNIT DIALYSIS-DOS E BEFORE IV (CKD) Heparin Sodium (Porcine) 5,000 UNIT DIALYSIS-DOS E AFTER MISC Sodium Chloride 1,000 ML ASDIR PRN IV Labetalol HCl 10 MG Q6H PRN PRN IV (DC) Dextrose/Water 25 ML ASDIR PRN IV Glucagon 1 MG ASDIR PRN IM Insulin Human Lispro LOW DOSE SCALE ASDIR SUBQ Physical Exam General appearance: alert, awake, no acute distr ess Head/Eyes: atraumatic Cardiovascular: normal heart sounds, regular rat e rhythm Respiratory: aerating well, clear to auscultatio n Abdomen: non-tender, normal bowel sounds, soft Extremities: no clubbing Results Findings/Data: Laboratory Tests 08/11 08/11 08/10 1205 0058 1725 Chemistry Sodium (137 - 145 mmol/L) 137 Potassium (3.4 - 5.0 mmol/L) 5.6 H Chloride (98 - 107 mmol/L) 107 Carbon Dioxide (22 - 30 mmol/L) 24 BUN (9 - 20 mg/dL) 22 H Creatinine (0.7 - 1.3 mg/dL) 1.0 Glomerular Filtr Rate (>60) 111 Glucose (74 - 106 mg/dL) 84 POC Glucose (74 - 106 MG/DL) 97 111 H Calcium (8.4 - 10.2 mg/dL) 8.7 Laboratory Tests 08/11 0058 Hematology WBC (5.0 - 12.0 x10 3/uL) 4.6 L RBC (4.70 - 6.10 x10 6/uL) 2.80 L Hgb (14.0 - 18.0 g/dL) 8.4 L Hct (37.0 - 49.0 %) 26.1 L MCV (80 - 94 fL) 93 MCH (27 - 31 pg) 30.0 MCHC (33 - 37 g/dL) 32.2 L RDW (11.5 - 15.5 %) 18.5 H Plt Count (130 - 400 x10 3/uL) 189 MPV (9.4 - 16.4 fL) 9.5 Neut % (Auto) (43 - 65 %) 62.0 Lymph % (Auto) (20.5 - 45.5 %) 21.3 Citrus % (Auto) (5.5 - 11.7 %) 8.8 Eos % (Auto) (0.9 - 2.9 %) 6.8 H Baso % (Auto) (0.2 - 1.0 %) 0.4 Neut # (Auto) (2.2 - 4.8 x10 3/uL) 2.83 Lymph # (Auto) (1.3 - 2.9 x10 3/uL) 0.97 L Citrus # (Auto) (0.3 - 0.8 x10 3/uL) 0.40 Eos # (Auto) (0.0 - 0.2 x10 3/uL) 0.31 H Baso # (Auto) (0.0 - 0.1 x10 3/uL) 0.02 Immature Gran % (0.0 - 2.0 %) 0.7 Nucleated RBC % (0 - 1.0 %) 0.0 Diagnosis, Assessment Plan Problem List/A P: 1. JENNIFER (acute kidney injury) Resolved, nephrology following, appreciate inpu t 2. Sepsis Due to UTI and bacteremia Continue meropenem Infectious disease following 3. UTI (urinary tract infection) Urine culture positive for Pseudomonas and Ente robacter Continue meropenem Infectious disease following, appreciate input 4. Bacteremia due to Enterobacter species Continue meropenem Infectious disease following, appreciate input 5. Metabolic encephalopathy Resolved 6. H/O cardiac arrest Patient status post PEA, resolved 7. 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 Abnormal MRI of head Could be related to CVA Repeat MRI 07/19/20 showed patchy perive ntricular white matter disease appears improved but not resolved since 06/26/20 and may have related to u nderlying metabolic or toxic disorder and/or vasculitis. Neurology on board, appreciate recommendations 9. Acute systolic heart failure Resolved Cardiology following, appreciate input 10. Acute CVA (cerebrovascular accident) Suspected to be cardioembolic, patient found to have PFO Cardiology discussed DOMINIK in preparation for pot ential PFO closure, patient continues to refuse Continue medical management 11. Acute on chronic anemia Patient status post 2 units PRBCs Hemoglobin improved from 6.6 to 7.3 Monitor hemoglobin Patient denies any overt blood loss 12. Hyperkalemia Hyperkalemia protocol initiated Monitor BMP 13. Hypertensive emergency Resolved 14. Essential hypertension Continue nifedipine, labetalol, Imdur 15. Aortic dissection History of type B aortic dissection status post thoracic endovascular aortic repair at outside hospital Continue labetalol Manage blood pressure Vascular following, appreciate input 16. Multifocal pneumonia Continue meropenem 17. Acute respiratory failure with hypoxia Resolved, patient extubated prior to downgrade from ICU Now on room air at 1429 RPT #:[id number] END OF REPORT 2020-08-11 11:19:00-00:[address] [facility] ([facility] Infectious Dis. Progress Note REPORT#:[id number] REPORT STATUS: Signed DATE:08/11/20 TIME: 1119 PATIENT: JORGE GOINS UNIT #: [id number] ROOM/BED: [address] : [birth year] AGE: 34 SEX: M ATTEND: Raphael Davila MD ADM AUTHOR: Faby Blanchard MD * ALL edits or amendments must be made on the rimidi/computer document * Subjective Chief Complaint: 07-07-20 INTUBATED UNRESPONSIVE BACTERMIA CVC WAS TAKEN OUT 07-08-2019 BREAHTING FAST UNRESPONSIVE NO FEVER ON THE VENT 07-09-2019 COMFRTABEL TODAY ON THE VENT SEDATED FEVER RENAL FUNCTION NOTED 07-10-2020 MORE AWAKE RESPONDS TO COMMNANDS RENAL FUNCTION NOTED: MAKING 160 M OF URINE SITLL ON THE VENT 07-13-20 no new changes 07-14-20 no overnight events, no fever 07-15-20 HD FOR TODAY 07-16-20 POSS 2ND ROUND OF HD TODAY 07-17-20 NO OVERNIGHT EVENTS 07-18-2020 AWAKE OCOMFRTABLE SMILING COUGHING NO FEVER TRACH SITE IS CLEAN TOLERAING TF 08-08-2020 RECONSUTL >> FEVER HAD NO C/O HAS A FLEY DTI PARALYZED FORM THE WAIST DOWN 08-11-2020 SLEEPING BLOOD CX NOTED Objective General VS/I O: Laboratory Tests 08/11/20 0058: [Embedded Image Not Available] 08/10/20 0337: [Embedded Image Not Available] 08/09/20 1319: [Embedded Image Not Available] Current Medications Sig/Ronan Start time Last Medication Dose Route Stop Time Status Admin Calcium Gluconate/ 50 ML ONCE ONE 08/11 0830 DC Sodium Chloride IV 08/11 0959 Dextrose/Water 50 ML ONCE ONE 08/11 0930 DC IV 08/11 09 Insulin Human 10 UNIT ONCE ONE 08/11 929 DC Regular IV 08/11 930 Meropenem 500 MG Q6H 08/10 1830 AC 08/11 Sterile Water 10 ML IV 08/20 1829 0533 Hydrocodone Bitart/ 1 TAB Q6H PRN PRN 08/09 0230 AC 08/11 Acetaminophen PO 08/14 0231 0855 Meropenem 500 MG Q8H 08/08 1930 DC 08/10 Sterile Water 10 ML IV 08/10 1929 1211 Nifedipine 30 MG Q12H 08/08 1800 AC 08/11 PO 09/07 1801 0533 Collagenase 1 APPLIC DAILY 07/29 09 AC 08/11 TOPICAL 08/28 0901 0853 Aspirin 81 MG DAILY 07/26 0900 AC 08/11 PO 08/25 0901 0853 Atorvastatin Calcium 40 MG DAILY 07/26 09 AC 08/11 PO 08/25 0901 0852 Isosorbide 30 MG BID 07/250 AC 08/11 Mononitrate PO 08/24 220 0852 Acetaminophen 650 MG Q4H PRN PRN 07/25 2045 AC 0 08/08 PO 08/24 203 2351 Famotidine 20 MG DAILY 07/23 0900 AC 08/11 PO 08/22 0901 0853 Labetalol HCl 600 MG Q8HR 07/21 1400 AC 08/11 PO 08/20 1401 0533 Heparin Sodium 5,000 UNIT Q12HR 07/21 1345 AC (Porcine) SUBQ 08/20 1346 0853 Heparin Sodium 2,000 UNIT DIALYSIS-DOSE 07/16 14 15 CKD 07/21 BEFORE (Porcine) IV 08/15 1416 1408 Heparin Sodium 5,000 UNIT DIALYSIS-DOSE AFTER 0 07/15 0830 AC 07/17 (Porcine) MISC 08/14 0831 1110 Sodium Chloride 1,000 ML ASDIR PRN 07/15 0830 A C 07/21 IV 08/14 0831 1409 Labetalol HCl 10 MG Q6H PRN PRN 07/12 0100 DC IV 08/11 0101 1108 Dextrose/Water 25 ML ASDIR PRN 06/21 2100 AC IV 08/22 2101 1226 Glucagon 1 MG ASDIR PRN 06/21 2100 AC IM 08/22 210 Insulin Human Lispro See Dose ASDIR 06/21 2100 A C 06/24 Insts (1) SUBQ 08/22 210 0357 Dose Instructions: (1)Insulin Human Lispro: LOW DOSE SCALE Last Documented: Result Date Time Pulse Ox 100 08/11 0812 B/P 138/54 08/11 0812 B/P Mean 82.3 08/11 0812 O2 Delivery Room air 08/11 08 Temp 36.7 08/11 08 Pulse 73 08/11 08 Resp 20 08/11 0812 FiO2 21 / 0823 O2 Flow Rate 5 07/28 2322 Vital Signs Date Temp Pulse Resp B/P B/P Mean Pulse Ox FiO2 08/10-08/11 36.4-36.9 67-73 16-20 120-174/54-86 80.8-115.3 99-100 24 hour I O ending at 0700: 08/11 0700 08/10 1900 Intake Total 1875 Output Total 575 800 Balance -575 1075 Intake, Oral 1675 Intake, 200 Packed Cells Number 1 Bowel Movements Output, Urine 575 800 PATIENT WEIGHT: Weight (lb): 176 Weight (oz): 9.44 Weight (kg): 80.100 Physical Exam General appearance: sleeping comfortably Cardiovascular: VSS Respiratory: no distress Abdomen: normal bowel sounds, no distention Genitourinary: zuñiga Skin: dry Diagnosis, Assessment Plan Problem List/A P: 1. Pressure injury of deep tissue of sacral reg ion 2. Renal failure 3. Gram-negative infection 4. UTI (urinary tract infection) 5. Atelectasis 6. Infection due to Enterobacter aerogenes 7. Pseudomonas aeruginosa infection 8. Bacteremia 9. UTI (urinary tract infection) Free Text A P: 07-16-2020 BACTERMIA : WILL FINISH THE JOB WITH LINEZOLID. ON STERIDS FOR POSSIBLE ISN 07-17-20 BACTEREMIA CONTINUE LINEZOLID 07-18-20 PNA: TERAETD MIXED BACTERMIA: TRAETED, INCLDUING 14 D AYS OF ABX POST LAST NEGATIVE BLOOD CX FOR ENTEROCOCCI>>>> D/C ALL ABX PT IS ON 10 DAY COURSE OF STEROIDS FOR ? ISN ID WILL SIGN OFF 08-08-2020 DTI ?UTI ATELECTASIS FEVER ID PLAN:ERIN + AIR MATATRES + IS WILL ASK IF ZUÑIGA CAN COM OUT OR HAVE A SPT 08-11-2020 KEEP ZUÑIGA , CHANGE EVERY MONTH MEROPNEN X 10 DAYS TOTAL TILL 08-18-2020 ID WILL SIGN OFF Electronically Signed by Faby Blanchard MD on 0 08/11/20 at 1125 RPT #:[id number] END OF REPORT 2020-08-11 09:22:00-00:[address] [facility] ([facility]) Nephrology Progress Note REPORT#:[id number] REPORT STATUS: Signed DATE:08/11/20 TIME: 921 PATIENT: JORGE GOINS UNIT #: [id number] ROOM/BED: [address] : 86 AGE: 34 SEX: M ATTEND: Raphael Davila MD ADM AUTHOR: Jojo York MD * ALL edits or amendments must be made on the [employer]idi[employer] document * Subjective Comments: Denies any new complain Objective General VS/I O: Vital Signs: Date Time Temp Pulse Resp B/P B/P Pulse O2 O2 F low FiO2 Mean Ox Delivery Rate 08/11 0812 98.1 73 20 138/54 82.3 100 Room air 08/11 0530 67 174/86 115.3 08/11 0529 98.4 71 16 100 08/11 0159 98.1 73 18 151/69 96.4 100 Room air 08/10 2027 97.5 73 18 120/61 80.8 99 Room air 08/10 2027 97.5 73 18 120/61 80.8 99 Room air 08/10 1657 98.2 69 18 134/66 88.7 100 Room air 08/10 1249 98.1 69 18 123/65 84.4 100 Room air 08/10 1249 98.1 69 18 123/65 84.4 100 Room air 24 hour I O ending at 0700: 08/11 0700 08/10 1900 Intake Total 1875 Output Total 575 800 Balance -575 1075 Intake, Oral 1675 Intake, 200 Packed Cells Number 1 Bowel Movements Output, Urine 575 800 PATIENT WEIGHT: Weight (lb): 176 Weight (oz): 9.44 Weight (kg): 80.100 Medications Active Meds + DC'd Last 24 Hrs Meropenem 500 MG Q6H IV Sterile Water 10 ML Sodium Polystyrene Sulfonate 30 GM ONCE ONE PO ( DC) Hydrocodone Bitart/Acetaminophen 1 TAB Q6H PRN P RN PO Meropenem 500 MG Q8H IV (DC) Sterile Water 10 ML Nifedipine 30 MG Q12H PO Collagenase 1 APPLIC DAILY TOPICAL Aspirin 81 MG DAILY PO Atorvastatin Calcium 40 MG DAILY PO Isosorbide Mononitrate 30 MG BID PO Acetaminophen 650 MG Q4H PRN PRN PO Famotidine 20 MG DAILY PO Labetalol HCl 600 MG Q8HR PO Heparin Sodium (Porcine) 5,000 UNIT Q12HR SUBQ Heparin Sodium (Porcine) 2,000 UNIT DIALYSIS-DOS E BEFORE IV (CKD) Heparin Sodium (Porcine) 5,000 UNIT DIALYSIS-DOS E AFTER MISC Sodium Chloride 1,000 ML ASDIR PRN IV Labetalol HCl 10 MG Q6H PRN PRN IV (DC) Dextrose/Water 25 ML ASDIR PRN IV Glucagon 1 MG ASDIR PRN IM Insulin Human Lispro LOW DOSE SCALE ASDIR SUBQ Physical Exam General appearance: no acute distress ENT: moist mucous membranes Neck: no JVD, no masses or swelling Cardiovascular: normal heart sounds, regular rat e and rhythm Respiratory: aerating well, clear to auscultatio n Abdomen: normal bowel sounds, soft Extremities: no edema Musculoskeletal: decreased ROM 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 Results Findings/Data: Laboratory Tests 08/11 1725 1244 Chemistry Sodium (137 - 145 mmol/L) 137 Potassium (3.4 - 5.0 mmol/L) 5.6 H Chloride (98 - 107 mmol/L) 107 Carbon Dioxide (22 - 30 mmol/L) 24 BUN (9 - 20 mg/dL) 22 H Creatinine (0.7 - 1.3 mg/dL) 1.0 Glomerular Filtr Rate (>60) 111 Glucose (74 - 106 mg/dL) 84 POC Glucose (74 - 106 MG/DL) 111 H 75 Calcium (8.4 - 10.2 mg/dL) 8.7 Laboratory Tests 08/11 57 Hematology WBC (5.0 - 12.0 x10 3/uL) 4.6 L RBC (4.70 - 6.10 x10 6/uL) 2.80 L Hgb (14.0 - 18.0 g/dL) 8.4 L Hct (37.0 - 49.0 %) 26.1 L MCV (80 - 94 fL) 93 MCH (27 - 31 pg) 30.0 MCHC (33 - 37 g/dL) 32.2 L RDW (11.5 - 15.5 %) 18.5 H Plt Count (130 - 400 x10 3/uL) 189 MPV (9.4 - 16.4 fL) 9.5 Neut % (Auto) (43 - 65 %) 62.0 Lymph % (Auto) (20.5 - 45.5 %) 21.3 Citrus % (Auto) (5.5 - 11.7 %) 8.8 Eos % (Auto) (0.9 - 2.9 %) 6.8 H Baso % (Auto) (0.2 - 1.0 %) 0.4 Neut # (Auto) (2.2 - 4.8 x10 3/uL) 2.83 Lymph # (Auto) (1.3 - 2.9 x10 3/uL) 0.97 L Citrus # (Auto) (0.3 - 0.8 x10 3/uL) 0.40 Eos # (Auto) (0.0 - 0.2 x10 3/uL) 0.31 H Baso # (Auto) (0.0 - 0.1 x10 3/uL) 0.02 Immature Gran % (0.0 - 2.0 %) 0.7 Nucleated RBC % (0 - 1.0 %) 0.0 Diagnosis, Assessment Plan Free Text A P: JENNIFER hypotension AAA lactic acidosis severe metabolic acidosis- resolved Metabolic alkalosis - resolved K is high again-we will give insulin D50 and als o calcium gluconate Patient asked to follow low K diet Creatinine is stable and he is nonoliguric A.m. at 1500 RPT #:[id number] END OF REPORT 2020-08-10 15:39:00-00:00 [facility] Hospitalist Progress Note REPORT#:[id number] REPORT STATUS: Signed DATE:08/10/20 TIME: 1539 PATIENT: JORGE GOINS UNIT #: [id number] ROOM/BED: [address] : 87 AGE: 34 SEX: M ATTEND: Raphael Davila MD ADM AUTHOR: Ramila Vee MD * ALL edits or amendments must be made on the rimidi/computer document * Subjective Chief Complaint: Follow-up lower extremity weakness, hypertension , CVA Patient reports: No: complaints. Free Text Subj Notes Free Text Subj Notes: Discussed at length cardiology recommendation fo r DOMINIK as well as neurology's recommendation for LP. Explained the purpose, ri sks and benefits of these procedures. Patient states he will think about i t. Kayexalate ordered for hyperkalemia, patient has refused this in the past, he stated he does not like to take, I explained the purpose of this medication. Review of Systems Constitutional: Reports: fatigue, generalized weakness (worse b/ l lower extremities ). Respiratory: Denies: productive cough (sputum), SOB. Cardiovascular: Denies: chest pain, palpitations. GI: Denies: abdominal pain, nausea, vomiting. Objective General VS/I O: Vital Signs: Date Time Temp Pulse Resp B/P B/P Pulse O2 O2 F low FiO2 Mean Ox Delivery Rate 08/10 1249 36.7 69 18 123/65 84.4 100 Room air 08/10 0743 37.0 82 16 135/68 90.2 08/10 0633 37.1 69 16 137/73 94.5 100 08/10 0549 64 126/73 90.4 08/10 0530 36.5 64 14 135/54 81.2 100 08/10 0449 36.5 71 14 138/65 89.4 100 08/10 0027 36.9 72 17 126/64 84.5 100 Room air 08/09 2214 37.0 66 16 132/70 90.9 100 08/09 2209 37.1 65 18 125/63 84.1 100 08/09 2144 36.4 64 14 131/63 85.8 100 08/09 2121 36.7 72 16 125/66 85 100 08/09 2042 36.6 70 18 127/64 85.1 100 Room air 08/09 1949 36.9 73 16 123/64 83.4 100 08/09 1644 37.1 69 20 131/70 90.0 100 Room air 24 hour I O ending at 0700: 08/10 0700 08/09 1900 Intake Total 1023 950 Output Total 900 1500 Balance 123 -550 Intake, IV 40 Intake, Oral 600 950 Intake, 383 Packed Cells Output, Urine 900 1500 Patient 80.1 kg Weight PATIENT WEIGHT: Weight (lb): 176 Weight (oz): 9.44 Weight (kg): 80.100 Medications: Active Meds + DC'd Last 24 Hrs Meropenem 500 MG Q6H IV Sterile Water 10 ML Sodium Polystyrene Sulfonate 30 GM ONCE ONE PO ( DC) Hydrocodone Bitart/Acetaminophen 1 TAB Q6H PRN P RN PO Meropenem 500 MG Q8H IV (DC) Sterile Water 10 ML Nifedipine 30 MG Q12H PO Collagenase 1 APPLIC DAILY TOPICAL Aspirin 81 MG DAILY PO Atorvastatin Calcium 40 MG DAILY PO Isosorbide Mononitrate 30 MG BID PO Acetaminophen 650 MG Q4H PRN PRN PO Famotidine 20 MG DAILY PO Labetalol HCl 600 MG Q8HR PO Heparin Sodium (Porcine) 5,000 UNIT Q12HR SUBQ Heparin Sodium (Porcine) 2,000 UNIT DIALYSIS-DOS E BEFORE IV (CKD) Heparin Sodium (Porcine) 5,000 UNIT DIALYSIS-DOS E AFTER MISC Sodium Chloride 1,000 ML ASDIR PRN IV Labetalol HCl 10 MG Q6H PRN PRN IV Dextrose/Water 25 ML ASDIR PRN IV Glucagon 1 MG ASDIR PRN IM Insulin Human Lispro LOW DOSE SCALE ASDIR SUBQ Physical Exam General appearance: alert, awake, no acute distr ess Head/Eyes: atraumatic Cardiovascular: normal heart sounds, regular rat e rhythm Respiratory: aerating well, clear to auscultatio n Abdomen: non-tender, normal bowel sounds, soft Extremities: no clubbing Results Findings/Data: Laboratory Tests 08/10 08/10 08/09 1244 0337 2043 Chemistry Sodium (137 - 145 mmol/L) 134 L Potassium (3.4 - 5.0 mmol/L) 5.4 H Chloride (98 - 107 mmol/L) 105 Carbon Dioxide (22 - 30 mmol/L) 20 L BUN (9 - 20 mg/dL) 24 H Creatinine (0.7 - 1.3 mg/dL) 1.0 Glomerular Filtr Rate (>60) 111 Glucose (74 - 106 mg/dL) 82 POC Glucose (74 - 106 MG/DL) 75 90 Calcium (8.4 - 10.2 mg/dL) 8.6 Total Bilirubin (0.2 - 1.3 mg/dL) 0.8 Conjugated Bilirubin (0 - 0.3 mg/dL) 0 Unconjugated Bilirubin (0 - 1.1 mg/dL) 0.4 AST (15 - 46 U/L) 70 H ALT (0 - 34 U/L) 74 H Total Alk Phosphatase (38 - 126 U/L) 178 H Total Protein (6.3 - 8.2 g/dL) 6.9 Albumin (3.5 - 5.0 g/dL) 3.4 L Laboratory Tests 08/10 0337 Hematology WBC (5.0 - 12.0 x10 3/uL) 4.9 L RBC (4.70 - 6.10 x10 6/uL) 2.48 L Hgb (14.0 - 18.0 g/dL) 7.3 L Hct (37.0 - 49.0 %) 23.2 L MCV (80 - 94 fL) 94 MCH (27 - 31 pg) 29.4 MCHC (33 - 37 g/dL) 31.5 L RDW (11.5 - 15.5 %) 18.6 H Plt Count (130 - 400 x10 3/uL) 163 MPV (9.4 - 16.4 fL) 9.7 Neut % (Auto) (43 - 65 %) 62.6 Lymph % (Auto) (20.5 - 45.5 %) 18.0 L Citrus % (Auto) (5.5 - 11.7 %) 9.0 Eos % (Auto) (0.9 - 2.9 %) 9.6 H Baso % (Auto) (0.2 - 1.0 %) 0.4 Neut # (Auto) (2.2 - 4.8 x10 3/uL) 3.06 Lymph # (Auto) (1.3 - 2.9 x10 3/uL) 0.88 L Citrus # (Auto) (0.3 - 0.8 x10 3/uL) 0.44 Eos # (Auto) (0.0 - 0.2 x10 3/uL) 0.47 H Baso # (Auto) (0.0 - 0.1 x10 3/uL) 0.02 Immature Gran % (0.0 - 2.0 %) 0.4 Nucleated RBC % (0 - 1.0 %) 0.0 Diagnosis, Assessment Plan Problem List/A P: 1. JENNIFER (acute kidney injury) Resolved, nephrology following, appreciate inpu t 2. Sepsis Due to UTI and bacteremia Continue meropenem Infectious disease following 3. UTI (urinary tract infection) Urine culture positive for Pseudomonas and Ente robacter Continue meropenem Infectious disease following, appreciate input 4. Bacteremia due to Enterobacter species Continue meropenem Infectious disease following, appreciate input 5. Metabolic encephalopathy Resolved 6. H/O cardiac arrest Patient status post PEA, resolved 7. 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 Abnormal MRI of head Could be related to CVA Repeat MRI 07/19/20 showed patchy perive ntricular white matter disease appears improved but not resolved since 06/26/20 and may have related to u nderlying metabolic or toxic disorder and/or vasculitis. Neurology on board, appreciate recommendations 9. Acute systolic heart failure Resolved Cardiology following, appreciate input 10. Acute CVA (cerebrovascular accident) Suspected to be cardioembolic, patient found to have PFO Cardiology discussed DOMINIK in preparation for pot ential PFO closure, patient continues to refuse Continue medical management 11. Acute on chronic anemia Patient status post 2 units PRBCs Hemoglobin improved from 6.6 to 7.3 Monitor hemoglobin Patient denies any overt blood loss 12. Hyperkalemia Gave Kayexalate x1 Monitor BMP 13. Hypertensive emergency Resolved 14. Essential hypertension Continue nifedipine, labetalol, Imdur 15. Aortic dissection History of type B aortic dissection status post thoracic endovascular aortic repair at outside hospital Continue labetalol Manage blood pressure Vascular following, appreciate input 16. Multifocal pneumonia Continue meropenem 17. Acute respiratory failure with hypoxia Resolved, patient extubated prior to downgrade from ICU Now on room air Additional comments: I spent greater than 30 minutes discussing with patient the plan of care, possible treatment options and risks versus bene fits of DOMINIK, LP, as well as disposition planning Patient would benefit from rehab however he was declined inpatient rehab at [facility], reportedly has bee n refusing PT, patient states they only came once, I have encouraged him to comply with PT/OT , patient self-pay if not approved for inpatient rehab he will go home. at 1603 RPT #:[id number] END OF REPORT 2020-08-10 12:57:00-00:[address] [facility] ([facility]) Nephrology Progress Note REPORT#:[id number] REPORT STATUS: Signed DATE:08/10/20 TIME: 1257 PATIENT: JORGE GOINS UNIT #: [id number] ROOM/BED: [address] : [birth year] AGE: 34 SEX: M ATTEND: Raphael Davila MD ADM AUTHOR: Jojo York MD * ALL edits or amendments must be made on the [employer]idi/computer document * Subjective Comments: no new comp Objective General VS/I O: Vital Signs: Date Time Temp Pulse Resp B/P B/P Pulse O2 O2 F low FiO2 Mean Ox Delivery Rate 08/10 1249 98.1 69 18 123/65 84.4 100 Room air 08/10 0743 98.6 82 16 135/68 90.2 08/10 0633 98.8 69 16 137/73 94.5 100 08/10 0549 64 126/73 90.4 08/10 0530 97.7 64 14 135/54 81.2 100 08/10 0449 97.7 71 14 138/65 89.4 100 08/10 0027 98.4 72 17 126/64 84.5 100 Room air 08/09 2214 98.6 66 16 132/70 90.9 100 08/09 2209 98.8 65 18 125/63 84.1 100 08/09 2144 97.5 64 14 131/63 85.8 100 08/091 98.1 72 16 125/66 85 100 08/09 2041 97.9 70 18 127/64 85.1 100 Room air 08/09 1949 98.4 73 16 123/64 83.4 100 08/09 1644 98.8 69 20 131/70 90.0 100 Room air 24 hour I O ending at 0700: 08/10 0700 08/09 1900 Intake Total 1023 950 Output Total 900 1500 Balance 123 -550 Intake, IV 40 Intake, Oral 600 950 Intake, 383 Packed Cells Output, Urine 900 1500 Patient 80.1 kg Weight PATIENT WEIGHT: Weight (lb): 176 Weight (oz): 9.44 Weight (kg): 80.100 Medications Active Meds + DC'd Last 24 Hrs Meropenem 500 MG Q6H IV Sterile Water 10 ML Sodium Polystyrene Sulfonate 30 GM ONCE ONE PO ( DC) Hydrocodone Bitart/Acetaminophen 1 TAB Q6H PRN P RN PO Meropenem 500 MG Q8H IV (DC) Sterile Water 10 ML Nifedipine 30 MG Q12H PO Collagenase 1 APPLIC DAILY TOPICAL Aspirin 81 MG DAILY PO Atorvastatin Calcium 40 MG DAILY PO Isosorbide Mononitrate 30 MG BID PO Acetaminophen 650 MG Q4H PRN PRN PO Famotidine 20 MG DAILY PO Labetalol HCl 600 MG Q8HR PO Heparin Sodium (Porcine) 5,000 UNIT Q12HR SUBQ Heparin Sodium (Porcine) 2,000 UNIT DIALYSIS-DOS E BEFORE IV (CKD) Heparin Sodium (Porcine) 5,000 UNIT DIALYSIS-DOS E AFTER MISC Sodium Chloride 1,000 ML ASDIR PRN IV Labetalol HCl 10 MG Q6H PRN PRN IV Dextrose/Water 25 ML ASDIR PRN IV Glucagon 1 MG ASDIR PRN IM Insulin Human Lispro LOW DOSE SCALE ASDIR SUBQ Physical Exam General appearance: no acute distress ENT: moist mucous membranes Neck: no JVD, no masses or swelling Cardiovascular: normal heart sounds, regular rat e and rhythm Respiratory: aerating well, clear to auscultatio n Abdomen: normal bowel sounds, soft Extremities: no edema Musculoskeletal: decreased ROM 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 Results Findings/Data: Laboratory Tests 08/10 08/09 08/09 0337 2043 1319 Chemistry Sodium (137 - 145 mmol/L) 134 L 133 L Potassium (3.4 - 5.0 mmol/L) 5.4 H 5.0 Chloride (98 - 107 mmol/L) 105 105 Carbon Dioxide (22 - 30 mmol/L) 20 L 22 BUN (9 - 20 mg/dL) 24 H 26 H Creatinine (0.7 - 1.3 mg/dL) 1.0 1.0 Glomerular Filtr Rate (>60) 111 111 Glucose (74 - 106 mg/dL) 82 91 POC Glucose (74 - 106 MG/DL) 90 Calcium (8.4 - 10.2 mg/dL) 8.6 8.5 Magnesium (1.6 - 2.3 mg/dL) 2.0 Total Bilirubin (0.2 - 1.3 mg/dL) 0.8 Conjugated Bilirubin (0 - 0.3 mg/dL) 0 Unconjugated Bilirubin (0 - 1.1 mg/dL) 0.4 AST (15 - 46 U/L) 70 H ALT (0 - 34 U/L) 74 H Total Alk Phosphatase (38 - 126 U/L) 178 H Total Protein (6.3 - 8.2 g/dL) 6.9 Albumin (3.5 - 5.0 g/dL) 3.4 L Laboratory Tests 08/10 08/09 0337 1319 Hematology WBC (5.0 - 12.0 x10 3/uL) 4.9 L 4.4 L RBC (4.70 - 6.10 x10 6/uL) 2.48 L 2.27 L Hgb (14.0 - 18.0 g/dL) 7.3 L 6.6 L Hct (37.0 - 49.0 %) 23.2 L 21.4 L MCV (80 - 94 fL) 94 94 MCH (27 - 31 pg) 29.4 29.1 MCHC (33 - 37 g/dL) 31.5 L 30.8 L RDW (11.5 - 15.5 %) 18.6 H 18.9 H Plt Count (130 - 400 x10 3/uL) 163 164 MPV (9.4 - 16.4 fL) 9.7 10.4 Neut % (Auto) (43 - 65 %) 62.6 66.5 H Lymph % (Auto) (20.5 - 45.5 %) 18.0 L 13.0 L Citrus % (Auto) (5.5 - 11.7 %) 9.0 8.4 Eos % (Auto) (0.9 - 2.9 %) 9.6 H 11.4 H Baso % (Auto) (0.2 - 1.0 %) 0.4 0.2 Neut # (Auto) (2.2 - 4.8 x10 3/uL) 3.06 2.92 Lymph # (Auto) (1.3 - 2.9 x10 3/uL) 0.88 L 0.57 L Citrus # (Auto) (0.3 - 0.8 x10 3/uL) 0.44 0.37 Eos # (Auto) (0.0 - 0.2 x10 3/uL) 0.47 H 0.50 H Baso # (Auto) (0.0 - 0.1 x10 3/uL) 0.02 0.01 Immature Gran % (0.0 - 2.0 %) 0.4 0.5 Nucleated RBC % (0 - 1.0 %) 0.0 0.0 Diagnosis, Assessment Plan Free Text A P: JENNIFER hypotension AAA lactic acidosis severe metabolic acidosis- resolved Metabolic alkalosis - resolved k is high again- will give kayexalate continue with renal diet bp is stable- continue with ivf Follow-up repeat labs in the morning Discussed this with the pt at 1744 RPT #:[id number] END OF REPORT 2020-08-09 21:00:00-00:00 [facility] Nephrology Progress Note REPORT#:[id number] REPORT STATUS: Signed DATE:08/09/20 TIME: 2099 PATIENT: JORGE GOINS UNIT #: [id number] ROOM/BED: [address] : [birth year] AGE: 34 SEX: M ATTEND: Raphael Davila MD ADM AUTHOR: Jojo York MD * ALL edits or amendments must be made on the rimidi/computer document * Subjective Comments: events noted Objective General VS/I O: Vital Signs: Date Time Temp Pulse Resp B/P B/P Pulse O2 O2 Flow FiO2 Mean Ox Delivery Rate 08/09 2041 97.9 70 18 127/64 85.1 100 Room air 08/09 1948 98.4 73 16 123/64 83.4 100 08/09 1644 98.8 69 20 131/70 90.0 100 Room air 08/09 1125 98.1 63 19 115/54 74.2 100 Room air 08/09 0742 98.2 69 20 96/54 68.3 100 Room air 08/09 0424 98.2 79 18 193/99 130.5 100 08/09 0424 98.2 79 18 193/99 130.5 100 08/09 0024 98.4 76 16 176/91 119.5 100 24 hour I O ending at 0700: 08/09 0700 08/08 1900 Intake Total Output Total 1000 Balance -1000 Output, Urine 1000 PATIENT WEIGHT: Weight (lb): 191 Weight (oz): 9.31 Weight (kg): 86.900 Medications Active Meds + DC'd Last 24 Hrs Hydrocodone Bitart/Acetaminophen 1 TAB Q6H PRN P RN PO Meropenem 500 MG Q8H IV Sterile Water 10 ML Nifedipine 30 MG Q12H PO Collagenase 1 APPLIC DAILY TOPICAL Aspirin 81 MG DAILY PO Atorvastatin Calcium 40 MG DAILY PO Isosorbide Mononitrate 30 MG BID PO Acetaminophen 650 MG Q4H PRN PRN PO Famotidine 20 MG DAILY PO Labetalol HCl 600 MG Q8HR PO Heparin Sodium (Porcine) 5,000 UNIT Q12HR SUBQ Heparin Sodium (Porcine) 2,000 UNIT DIALYSIS-DOS E BEFORE IV (CKD) Heparin Sodium (Porcine) 5,000 UNIT DIALYSIS-DOS E AFTER MISC Sodium Chloride 1,000 ML ASDIR PRN IV Labetalol HCl 10 MG Q6H PRN PRN IV Dextrose/Water 25 ML ASDIR PRN IV Glucagon 1 MG ASDIR PRN IM Insulin Human Lispro LOW DOSE SCALE ASDIR SUBQ Physical Exam General appearance: no acute distress ENT: moist mucous membranes Neck: no JVD, no masses or swelling Cardiovascular: normal heart sounds, regular rat e and rhythm Respiratory: aerating well, clear to auscultatio n Abdomen: normal bowel sounds, soft Extremities: no edema Musculoskeletal: decreased ROM 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 Results Findings/Data: Laboratory Tests 08/09 1319 Chemistry Sodium (137 - 145 mmol/L) 133 L Potassium (3.4 - 5.0 mmol/L) 5.0 Chloride (98 - 107 mmol/L) 105 Carbon Dioxide (22 - 30 mmol/L) 22 BUN (9 - 20 mg/dL) 26 H Creatinine (0.7 - 1.3 mg/dL) 1.0 Glomerular Filtr Rate (>60) 111 Glucose (74 - 106 mg/dL) 91 Calcium (8.4 - 10.2 mg/dL) 8.5 Magnesium (1.6 - 2.3 mg/dL) 2.0 Laboratory Tests 08/09 1319 Hematology WBC (5.0 - 12.0 x10 3/uL) 4.4 L RBC (4.70 - 6.10 x10 6/uL) 2.27 L Hgb (14.0 - 18.0 g/dL) 6.6 L Hct (37.0 - 49.0 %) 21.4 L MCV (80 - 94 fL) 94 MCH (27 - 31 pg) 29.1 MCHC (33 - 37 g/dL) 30.8 L RDW (11.5 - 15.5 %) 18.9 H Plt Count (130 - 400 x10 3/uL) 164 MPV (9.4 - 16.4 fL) 10.4 Neut % (Auto) (43 - 65 %) 66.5 H Lymph % (Auto) (20.5 - 45.5 %) 13.0 L Citrus % (Auto) (5.5 - 11.7 %) 8.4 Eos % (Auto) (0.9 - 2.9 %) 11.4 H Baso % (Auto) (0.2 - 1.0 %) 0.2 Neut # (Auto) (2.2 - 4.8 x10 3/uL) 2.92 Lymph # (Auto) (1.3 - 2.9 x10 3/uL) 0.57 L Citrus # (Auto) (0.3 - 0.8 x10 3/uL) 0.37 Eos # (Auto) (0.0 - 0.2 x10 3/uL) 0.50 H Baso # (Auto) (0.0 - 0.1 x10 3/uL) 0.01 Immature Gran % (0.0 - 2.0 %) 0.5 Nucleated RBC % (0 - 1.0 %) 0.0 Diagnosis, Assessment Plan Free Text A P: JENNIFER hypotension AAA lactic acidosis severe metabolic acidosis- resolved Metabolic alkalosis - resolved cr and k better continue with ivf Follow-up repeat labs in the morning Discussed this with the at 2101 RPT #:[id number] END OF REPORT 2020-08-09 09:06:00-00:[address] [facility] ([facility]) Hospitalist Progress Note REPORT#:[id number] REPORT STATUS: Signed DATE:08/09/20 TIME: 905 PATIENT: JORGE GOINS UNIT #: [id number] ROOM/BED: [address] : 86 AGE: 34 SEX: M ATTEND: Raphael Davila MD ADM AUTHOR: Tessa Wolfe MD * ALL edits or amendments must be made on the [employer] document * Subjective Chief Complaint: assumed care chart reviewed pt seen watching tv no complains Review of Systems All systems rev neg: except as marked Objective General Medications: Active Meds + DC'd Last 24 Hrs Hydrocodone Bitart/Acetaminophen 1 TAB Q6H PRN P RN PO Meropenem 500 MG Q8H IV Sterile Water 10 ML Nifedipine 30 MG Q12H PO Meropenem 500 MG Q8H IV (DC) Sterile Water 10 ML Meropenem 500 MG ONCE ONE IV (DC) Sterile Water 10 ML Cefepime HCl 1 GM Q12H IV (DC) Sterile Water 10 ML Sodium Chloride 1,000 ML .Q10H IV (DC) Hydrocodone Bitart/Acetaminophen 1 TAB Q6H PRN P RN PO (DC) Collagenase 1 APPLIC DAILY TOPICAL Aspirin 81 MG DAILY PO Atorvastatin Calcium 40 MG DAILY PO Nifedipine 30 MG Q6HR PO (DC) Isosorbide Mononitrate 30 MG BID PO Acetaminophen 650 MG Q4H PRN PRN PO Famotidine 20 MG DAILY PO Labetalol HCl 600 MG Q8HR PO Heparin Sodium (Porcine) 5,000 UNIT Q12HR SUBQ Heparin Sodium (Porcine) 2,000 UNIT DIALYSIS-DO SE BEFORE IV (CKD) Heparin Sodium (Porcine) 5,000 UNIT DIALYSIS-DOS E AFTER MISC Sodium Chloride 1,000 ML ASDIR PRN IV Labetalol HCl 10 MG Q6H PRN PRN IV Dextrose/Water 25 ML ASDIR PRN IV Glucagon 1 MG ASDIR PRN IM Insulin Human Lispro LOW DOSE SCALE ASDIR SUBQ Physical Exam General appearance: alert, awake, oriented Head/Eyes: atraumatic Cardiovascular: normal heart sounds, regular rat e rhythm Respiratory: aerating well, clear to auscultatio n Abdomen: non-tender, normal bowel sounds, soft Extremities: no clubbing Results Results: labs reviewed, current med profile rev' d Diagnosis, Assessment Plan Free Text DxA P Notes Free text DxA P notes: 1. Acute encephalopathy - resolved 2. 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 -Patient has refused for LP per neurology 3. Acute ischemic strokes, -suspect embolic source + PFO closure per cardiology recs - Schedulled for DOMINIK -Cardiology following 4. S/p PEA arrest 06/11/20 -Resolved, rhythm back to normal 5. Hypertensive emergency - improved,continue ni fedipine, isosorbide, some labetalol. -Cardiology following. -Blood pressure stable on current regimen. 6. Acute respiratory failure -Patient was intubated followed by tracheostomy. -Tracheostomy has been remov ed and patient is breathing without any difficulty. 7. Type b aortic dissection 8. JENNIFER - Nephrology following. Kidney functions have im proved. Patient making good urine output. No need for hemodialysis. 9.Patchy white matter disease, could be secondar y to CVA Repeat MRI 07/16/20: patchy p eriventricular white matter disease appears improved but not resolved since 06/26/20 and may have related to u nderlying metabolic or toxic disorder and/or vasculitis. 10. Acute systolic congestive heart failure -Resolved. 11. Ruled in for sepsis -Patient had high-grade fever of 102 08/07/2020. -Received 1 dose of vancomycin and IV cefepime. -Consulted infectious disease, started on merope nem 08/07/2020 -Urine culture and blood cul ture 1 out of 2 set positive for gram-negative rods. Follow culture results. DVT prophylaxis: Subcu heparin Disposition: Awaiting DOMINIK. Follow blood culture and urine cul ture results due to recent onset of fever. Awaiting inpatient rehab. d/w nursing urine cx positive for MDRO ,ON MEREM,ID ON BOARD Hb droped today,will transfuse two units repeat cbc in am Quality: Gen Med Crit Care Current Medications Current medication review: I attest that the foregoing medication list in t he medical record is true, accurate, and complete to the best of my knowled ge. Electronically Signed by Tessa Wolfe MD on at 1426 RPT #:[id number] END OF REPORT 2020-08-08 15:17:00-00:[address] [facility] ([facility]) Hospitalist Progress Note REPORT#:[id number] REPORT STATUS: Signed DATE:08/08/20 TIME: 1517 PATIENT: JORGE GOINS UNIT #: [id number] ROOM/BED: [address] : [birth year] AGE: 34 SEX: M ATTEND: Raphael Davila MD ADM AUTHOR: Sanju Guillory MD * ALL edits or amendments must be made on the [employer]/computer document * Subjective Chief Complaint: Follow-up of acute CVA HPI: Patient had a temperature of 102 yesterday. No f ever since then. Looks comfortable. Denies having any chest pain or angelica rtness of breath. Review of Systems Constitutional: Denies: chills, fever, generalized weakness, let hargy. Respiratory: Denies: productive cough (sputum), SOB. Cardiovascular: Denies: chest pain. GI: Denies: abdominal pain, nausea. All systems rev neg: except as marked Objective General VS/I O: Vital Signs: Date Time Temp Pulse Resp B/P B/P Pulse O2 O2 F low FiO2 Mean Ox Delivery Rate 08/08 1047 98.6 69 18 106/65 78.6 100 08/08 0742 98.6 71 18 113/58 76.2 100 08/08 0445 100.4 74 16 113/60 77.8 100 Room air 08/07 2357 98.8 75 16 100/52 68.2 100 Room air 08/07 1950 98.8 81 18 100/51 67.2 100 Room air 08/07 1637 99.1 74 18 104/58 73.5 100 08/07 1637 99.1 74 18 104/58 73.5 100 24 hour I O ending at 0700: 08/08 0700 08/07 1900 Intake Total Output Total 828 Balance -828 Output, Urine 828 PATIENT WEIGHT: Weight (lb): 191 Weight (oz): 9.31 Weight (kg): 86.900 Medications: Active Meds + DC'd Last 24 Hrs Meropenem 500 MG Q8H IV Sterile Water 10 ML Nifedipine 30 MG Q12H PO Meropenem 500 MG Q8H IV (DC) Sterile Water 10 ML Meropenem 500 MG ONCE ONE IV (DC) Sterile Water 10 ML Magnesium Sulfate 50 ML Q2H IV (DC) Cefepime HCl 1 GM Q12H IV (DC) Sterile Water 10 ML Sodium Chloride 1,000 ML .Q10H IV (DC) Hydrocodone Bitart/Acetaminophen 1 TAB Q6H PRN P RN PO Collagenase 1 APPLIC DAILY TOPICAL Aspirin 81 MG DAILY PO Atorvastatin Calcium 40 MG DAILY PO Nifedipine 30 MG Q6HR PO (DC) Isosorbide Mononitrate 30 MG BID PO Acetaminophen 650 MG Q4H PRN PRN PO Famotidine 20 MG DAILY PO Labetalol HCl 600 MG Q8HR PO Heparin Sodium (Porcine) 5,000 UNIT Q12HR SUBQ Heparin Sodium (Porcine) 2,000 UNIT DIALYSIS-DOS E BEFORE IV (CKD) Heparin Sodium (Porcine) 5,000 UNIT DIALYSIS-DOS E AFTER MISC Sodium Chloride 1,000 ML ASDIR PRN IV Labetalol HCl 10 MG Q6H PRN PRN IV Dextrose/Water 25 ML ASDIR PRN IV Glucagon 1 MG ASDIR PRN IM Insulin Human Lispro LOW DOSE SCALE ASDIR SUBQ Physical Exam General appearance: alert, awake, oriented Head/Eyes: atraumatic Cardiovascular: normal heart sounds, regular rat e rhythm Respiratory: aerating well, clear to auscultatio n Abdomen: non-tender, normal bowel sounds, soft Extremities: no clubbing Diagnosis, Assessment Plan Free Text DxA P Notes Free text DxA P notes: 34-year-old male admitted for metabolic encephal opathy. A/P: 1. Acute encephalopathy - resolved 2. 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 -Patient has refused for LP per neurology 3. Acute ischemic strokes, -suspect embolic source + PFO closure per cardiology recs - Schedulled for DOMINIK -Cardiology following 4. S/p PEA arrest 06/11/20 -Resolved, rhythm back to normal 5. Hypertensive emergency - improved,continue ni fedipine, isosorbide, some labetalol. -Cardiology following. -Blood pressure stable on current regimen. 6. Acute respiratory failure -Patient was intubated followed by tracheostomy. -Tracheostomy has been remov ed and patient is breathing without any difficulty. 7. Type b aortic dissection 8. JENNIFER - Nephrology following. Kidney functions have im proved. Patient making good urine output. No need for hemodialysis. 9.Patchy white matter disease, could be secondar y to CVA Repeat MRI 07/16/20: patchy p eriventricular white matter disease appears improved but not resolved since 06/26/20 and may have related to u nderlying metabolic or toxic disorder and/or vasculitis. 10. Acute systolic congestive heart failure -Resolved. 11. Ruled in for sepsis -Patient had high-grade fever of 102 08/07/2020. -Received 1 dose of vancomycin and IV cefepime. -Consulted infectious disease, started on merope nem 08/07/2020 -Urine culture and blood cul ture 1 out of 2 set positive for gram-negative rods. Follow culture results. DVT prophylaxis: Subcu heparin Disposition: Awaiting DOMIN[facility]. Follow blood culture and urine cul ture results due to recent onset of fever. Awaiting inpatient rehab. Discussed at length with the infectious disease physician Dr Blanchard. Quality: Gen Med Crit Care Current Medications Current medication review: I attest that the foregoing medication list in [facility] medical record is true, accurate, and complete to the best of my knowled ge. Electronically Signed by Sanju Guillory MD on 1 at 1524 [facility] #:[id number] END OF REPORT 2020-08-08 13:21:00-00:[address] [facility] ([facility]) Nephrology Progress Note REPORT#:[id number] REPORT STATUS: Signed DATE:08/08/20 TIME: 1321 PATIENT: JORGE GOINS UNIT #: [id number] [address] [birth year] AGE: 34 SEX: M ATTEND: Raphael Davila MD ADM AUTHOR: Jojo York MD * ALL edits or amendments must be made on the [employer]/computer document * Subjective Comments: No new comp Objective General VS/I O: Vital Signs: Date Time Temp Pulse Resp B/P B/P Pulse O2 O2 F low FiO2 Mean Ox Delivery Rate 08/08 1047 98.6 69 18 106/65 78.6 100 08/08 0742 98.6 71 18 113/58 76.2 100 08/08 0445 100.4 74 16 113/60 77.8 100 Room air 08/07 2357 98.8 75 16 100/52 68.2 100 Room air 08/07 1950 98.8 81 18 100/51 67.2 100 Room air 08/07 1637 99.1 74 18 104/58 73.5 100 08/07 1637 99.1 74 18 104/58 73.5 100 24 hour I O ending at 0700: 08/08 0700 08/07 1900 Intake Total Output Total 828 Balance -828 Output, Urine 828 PATIENT WEIGHT: Weight (lb): 191 Weight (oz): 9.31 Weight (kg): 86.900 Medications Active Meds + DC'd Last 24 Hrs Meropenem 500 MG Q8H IV Sterile Water 10 ML Nifedipine 30 MG Q12H PO Meropenem 500 MG Q8H IV (DC) Sterile Water 10 ML Meropenem 500 MG ONCE ONE IV (DC) Sterile Water 10 ML Magnesium Sulfate 50 ML Q2H IV (DC) Magnesium Sulfate 50 ML Q2H IV (DC) Cefepime HCl 1 GM Q12H IV (DC) Sterile Water 10 ML Sodium Chloride 1,000 ML .Q10H IV Hydrocodone Bitart/Acetaminophen 1 TAB Q6H PRN P RN PO Collagenase 1 APPLIC DAILY TOPICAL Aspirin 81 MG DAILY PO Atorvastatin Calcium 40 MG DAILY PO Nifedipine 30 MG Q6HR PO (DC) Isosorbide Mononitrate 30 MG BID PO Acetaminophen 650 MG Q4H PRN PRN PO Famotidine 20 MG DAILY PO Labetalol HCl 600 MG Q8HR PO Heparin Sodium (Porcine) 5,000 UNIT Q12HR SUBQ Heparin Sodium (Porcine) 2,000 UNIT DIALYSIS-DOS E BEFORE IV (CKD) Heparin Sodium (Porcine) 5,000 UNIT DIALYSIS-DOS E AFTER MISC Sodium Chloride 1,000 ML ASDIR PRN IV Labetalol HCl 10 MG Q6H PRN PRN IV Dextrose/Water 25 ML ASDIR PRN IV Glucagon 1 MG ASDIR PRN IM Insulin Human Lispro LOW DOSE SCALE ASDIR SUBQ Physical Exam General appearance: no acute distress ENT: moist mucous membranes Neck: no JVD, no masses or swelling Cardiovascular: normal heart sounds, regular rat e and rhythm Respiratory: aerating well, clear to auscultatio n Abdomen: normal bowel sounds, soft Extremities: no edema Musculoskeletal: decreased ROM 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 Results Findings/Data: Laboratory Tests 08/08 08/08 08/07 08/07 08/07 1044 0443 [id number] 1951 1339 Chemistry Potassium (3.4 - 5.0 mmol/L) 4.9 POC Glucose (74 - 106 MG/DL) 74 82 79 Lactic Acid (0.7 - 2.0 mmol/L) 0.8 Magnesium (1.6 - 2.3 mg/dL) 2.4 H Diagnosis, Assessment Plan Free Text A P: JENNIFER hypotension AAA lactic acidosis severe metabolic acidosis- resolved Metabolic alkalosis - resolved Rising creatinine due to relative hypotension an d also new gram-negative yosi sepsis Antibiotics per primary team Continue with IV fluids Due to relative hypotension- we will decrease the antihypertensive medications on hold blood pressure medications if systolic is b elow 130 Follow-up repeat labs in the morning Discussed this with the at 1322 RPT #:[id number] END OF REPORT 2020-08-08 10:05:00-00:00 [facility] [facility] ([facility]) Infectious Dis. Progress Note REPORT#:[id number] REPORT STATUS: Signed DATE:08/08/20 TIME: 1005 PATIENT: JORGE GOINS UNIT #: [id number] [place] [facility] [place] AGE: 34 SEX: M ATTEND: Raphael Davila MD ADM AUTHOR: Faby Blanchard MD * ALL edits or amendments must be made on the el Digital [employer]/computer document * Subjective Chief Complaint: 07-07-20 INTUBATED UNRESPONSIVE BACTERMIA CVC WAS TAKEN OUT 07-08-2019 BREAHTING FAST UNRESPONSIVE NO FEVER ON THE VENT 07-09-2019 COMFRTABEL TODAY ON THE VENT SEDATED FEVER RENAL FUNCTION NOTED 07-10-2020 MORE AWAKE RESPONDS TO COMMNANDS RENAL FUNCTION NOTED: MAKING 160 M OF URINE SITLL ON THE VENT 07-13-20 no new changes 07-14-20 no overnight events, no fever 07-15-20 HD FOR TODAY 07-16-20 POSS 2ND ROUND OF HD TODAY 07-17-20 NO OVERNIGHT EVENTS 07-18-2020 AWAKE OCOMFRTABLE SMILING COUGHING NO FEVER TRACH SITE IS CLEAN TOLERAING TF 08-08-2020 RECONSUTL >> FEVER HAD NO C/O HAS A FLEY DTI PARUALYZED FORM THE WAIST DOWN Objective General VS/I O: Laboratory Tests 08/07/20 2246: [Embedded Image Not Available] 08/07/20 0955: [Embedded Image Not Available] 08/07/20 0626: [Embedded Image Not Available] 08/06/20 1144: [Embedded Image Not Available] Microbiology: 08/07 1339 URINE: Urine Culture - RES GRAM NEGATIVE YOSI GRAM NEGATIVE YOSI#2 08/07 1008 BLOOD: Blood Culture - RES 08/07 1008 BLOOD: Blood Culture - RES Current Medications Sig/Ronan Start time Last Medication Dose Route Stop Time Status Admin Meropenem 500 MG Q8HR 08/08 1400 UNV Sterile Water 10 ML IV 08/22 1401 Magnesium Sulfate 50 ML Q2H 08/07 1645 DC 08/07 IV 08/07 1744 1709 Magnesium Sulfate 50 ML Q2H 08/07 1115 DC 08/07 IV 08/07 1414 1437 Cefepime HCl 1 GM Q12H 08/07 1030 DCr 08/07 Sterile Water 10 ML IV 08/14 1029 2234 Sodium Chloride 1,000 ML .Q10H 08/07 1030 AC IV 09/06 1031 0454 Vancomycin HCl 1,000 MG ONCE ONE 08/07 1030 DC 0 08/07 Sodium Chloride 250 ML IV 08/07 1129 1236 Hydrocodone Bitart/ 1 TAB Q6H PRN PRN 08/03 1930 AC 08/08 Acetaminophen PO 08/08 1931 0453 Collagenase 1 APPLIC DAILY 07/29 0900 AC 08/08 TOPICAL 08/28 0901 0911 Aspirin 81 MG DAILY 07/26 0900 AC 08/08 PO 08/25 0901 0910 Atorvastatin Calcium 40 MG DAILY 07/26 899 AC 0 2/13 PO 08/25 0901 0910 Nifedipine 30 MG Q6HR 07/26 0000 AC 08/07 PO 08/25 0001 0029 Isosorbide 30 MG BID 07/25 2200 AC 08/08 Mononitrate PO 08/24 2200 0910 Acetaminophen 650 MG Q4H PRN PRN 07/25 2045 AC 0 08/06 PO 08/24 203 205 Famotidine 20 MG DAILY 07/23 0900 AC 08/08 PO 08/22 0901 0910 Labetalol HCl 600 MG Q8HR 07/21 1400 AC 08/08 PO 08/20 1401 0452 Heparin Sodium 5,000 UNIT Q12HR 07/21 1345 AC 0 08/08 (Porcine) SUBQ 08/20 1346 0908 Heparin Sodium 2,000 UNIT DIALYSIS-DOSE 07/16 14 15 CKD 07/21 BEFORE (Porcine) IV 08/15 1416 1408 Heparin Sodium 5,000 UNIT DIALYSIS-DOSE AFTER 0830 AC 07/17 (Porcine) MISC 08/14 0831 1110 Sodium Chloride 1,000 ML ASDIR PRN 07/15 0830 AC 07/21 IV 08/14 0831 1409 Labetalol HCl 10 MG Q6H PRN PRN 07/12 0100 AC IV 08/11 0101 1108 Dextrose/Water 25 ML ASDIR PRN 06/21 2100 AC IV 08/22 2101 1226 Glucagon 1 MG ASDIR PRN 06/21 2100 AC IM 08/22 2101 Insulin Human Lispro See Dose ASDIR 06/21 2100 A C 06/24 Insts (1) SUBQ 08/22 2101 0357 Dose Instructions: (1)Insulin Human Lispro: LOW DOSE SCALE Recent Impressions-Last 72 Hrs RADIOLOGY - XR CHEST 1 V 08/07 1207 Report Impression - Status: SIGNED Entered: 08/07/2020 1218 IMPRESSION: Interval removal of tracheostomy tube. No acute abnormality Impression By: [email or web address] - Vivian Youssef MD Last Documented: Result Date Time Pulse Ox 100 08/08 0742 B/P 113/58 08/08 0742 B/P Mean 76.2 08/08 0742 Temp 37.0 08/08 0742 Pulse 71 08/08 0742 Resp 18 08/08 0742 O2 Delivery Room air 08/08 0445 FiO2 21 08/06 0823 O2 Flow Rate 5 07/28 2322 Vital Signs Date Temp Pulse Resp B/P B/P Mean Pulse Ox FiO 2 08/07-08/08 37.0-38.0 71-81 16-18 100-113/51-60 67.2-77.8 99-100 24 hour I O ending at 0700: 08/08 0700 08/07 1900 Intake Total Output Total 828 Balance -828 Output, Urine 828 PATIENT WEIGHT: Weight (lb): 191 Weight (oz): 9.31 Weight (kg): 86.900 Physical Exam General appearance: alert, awake, no acu te distress, pleasant, conversational, mental status normal, no respiratory distress ENT: moist mucosal membranes Cardiovascular: normal heart sounds Respiratory: rales, rhonchi Abdomen: non-tender, soft, no distention, no gua rding, no rebound Genitourinary: zuñiga Skin: dry Diagnosis, Assessment Plan Problem List/A P: 1. Pressure injury of deep tissue of sacral reg ion 2. Renal failure 3. Gram-negative infection 4. UTI (urinary tract infection) 5. Atelectasis Free Text A P: 07-16-2020 BACTERMIA : WILL FINISH THE JOB WITH LINEZOLID. ON STERIDS FOR POSSIBLE ISN 07-17-20 BACTEREMIA CONTINUE LINEZOLID 07-18-20 PNA: TERAETD MIXED BACTERMIA: TRAETED, INCLDUING 14 D AYS OF ABX POST LAST NEGATIVE BLOOD CX FOR ENTEROCOCCI>>>> D/C ALL ABX PT IS ON 10 DAY COURSE OF STEROIDS FOR ? ISN ID WILL SIGN OFF 08-08-2020 DTI ?UTI ATELECTASIS FEVER ID PLAN:ERIN + AIR MATATRES + IS WILL ASK IF ZUÑIGA CAN COM OUT OR HAVE A SPT Electronically Signed by Faby Blanchard MD on 0 08/08/20 at 1009 RPT #:[id number] END OF REPORT 2020-08-08 10:05:00-00:[address] [facility] ([facility]) Infectious Dis. Progress Note REPORT#:[id number] REPORT STATUS: Signed DATE:08/08/20 TIME: 1005 PATIENT: JORGE GOINS UNIT #: [id number] ROOM/BED: [address] : 87 AGE: 34 SEX: M ATTEND: Raphael Davila MD ADM AUTHOR: Faby Blanchard MD * ALL edits or amendments must be made on the el [employer]/computer document * See Addendum Subjective Chief Complaint: 07-07-20 INTUBATED UNRESPONSIVE BACTERMIA CVC WAS TAKEN OUT 07-08-2019 BREAHTING FAST UNRESPONSIVE NO FEVER ON THE VENT 07-09-2019 COMFRTABEL TODAY ON THE VENT SEDATED FEVER RENAL FUNCTION NOTED 07-10-2020 MORE AWAKE RESPONDS TO COMMNANDS RENAL FUNCTION NOTED: MAKING 160 M OF URINE SITLL ON THE VENT 07-13-20 no new changes 07-14-20 no overnight events, no fever 07-15-20 HD FOR TODAY 07-16-20 POSS 2ND ROUND OF HD TODAY 07-17-20 NO OVERNIGHT EVENTS 07-18-2020 AWAKE OCOMFRTABLE SMILING COUGHING NO FEVER TRACH SITE IS CLEAN TOLERAING TF 08-08-2020 RECONSUTL >> FEVER HAD NO C/O HAS A FLEY DTI PARUALYZED FORM THE WAIST DOWN Objective General VS/I O: Laboratory Tests 08/07/20 2246: [Embedded Image Not Available] 08/07/20 0955: [Embedded Image Not Available] 08/07/20 0626: [Embedded Image Not Available] 08/06/20 1144: [Embedded Image Not Available] Microbiology: 08/07 1339 URINE: Urine Culture - RES GRAM NEGATIVE YOSI GRAM NEGATIVE YOSI#2 08/07 1008 BLOOD: Blood Culture - RES 08/07 1008 BLOOD: Blood Culture - RES Current Medications Sig/Ronan Start time Last Medication Dose Route Stop Time Status Admin Meropenem 500 MG Q8HR 08/08 1400 UNV Sterile Water 10 ML IV 08/22 1401 Magnesium Sulfate 50 ML Q2H 08/07 1645 DC 08/07 IV 08/07 1744 1709 Magnesium Sulfate 50 ML Q2H 08/07 1115 DC 08/07 IV 08/07 1414 1437 Cefepime HCl 1 GM Q12H 08/07 1030 DCr 08/07 Sterile Water 10 ML IV 08/14 1029 2234 Sodium Chloride 1,000 ML .Q10H 08/07 1030 AC IV 09/06 1031 0454 Vancomycin HCl 1,000 MG ONCE ONE 08/07 1030 DC 0 08/07 Sodium Chloride 250 ML IV 08/07 1129 1236 Hydrocodone Bitart/ 1 TAB Q6H PRN PRN 08/03 193 0 AC 08/08 Acetaminophen PO 08/08 1931 0453 Collagenase 1 APPLIC DAILY 07/29 0900 AC 08/08 TOPICAL 08/28 0901 0911 Aspirin 81 MG DAILY 07/26 0900 AC 08/08 PO 08/25 0901 0910 Atorvastatin Calcium 40 MG DAILY 07/26 0900 AC 0 08/08 PO 08/25 0901 0910 Nifedipine 30 MG Q6HR 07/26 0000 AC 08/07 PO 08/25 0001 0029 Isosorbide 30 MG BID 07/25 2200 AC 08/08 Mononitrate PO 08/24 2200 0910 Acetaminophen 650 MG Q4H PRN PRN 07/25 2045 AC 0 08/06 PO 08/24 203 205 Famotidine 20 MG DAILY 07/23 0900 AC 08/08 PO 08/22 0901 0910 Labetalol HCl 600 MG Q8HR 07/21 1400 AC 08/08 PO 08/20 1401 0452 Heparin Sodium 5,000 UNIT Q12HR 07/21 1345 AC (Porcine) SUBQ 08/20 1346 0908 Heparin Sodium 2,000 UNIT DIALYSIS-DOSE 07/16 14 15 CKD 07/21 BEFORE (Porcine) IV 08/15 1416 1408 Heparin Sodium 5,000 UNIT DIALYSIS-DOSE AFTER 0830 AC 07/17 (Porcine) MISC 08/14 0831 1110 Sodium Chloride 1,000 ML ASDIR PRN 07/15 0830 AC 07/21 IV 08/14 0831 1409 Labetalol HCl 10 MG Q6H PRN PRN 07/12 0100 AC IV 08/11 0101 1108 Dextrose/Water 25 ML ASDIR PRN 06/21 2100 AC IV 08/22 210 1226 Glucagon 1 MG ASDIR PRN 06/21 2100 AC IM 08/22 210 Insulin Human Lispro See Dose ASDIR 06/21 2100 A C 06/24 Insts (1) SUBQ 08/22 210 0357 Dose Instructions: (1)Insulin Human Lispro: LOW DOSE SCALE Recent Impressions-Last 72 Hrs RADIOLOGY - XR CHEST 1 V 08/07 1207 Report Impression - Status: SIGNED Entered: 08/07/2020 1218 IMPRESSION: Interval removal of tracheostomy tube. No acute abnormality Impression By: [email or web address] Keyon Youssef MD Last Documented: Result Date Time Pulse Ox 100 08/08 0742 B/P 113/58 08/08 0742 B/P Mean 76.2 08/08 0742 Temp 37.0 08/08 0742 Pulse 71 08/08 0742 Resp 18 08/08 0742 O2 Delivery Room air 08/08 0445 FiO2 21 08/06 0823 O2 Flow Rate 5 07/28 2322 Vital Signs Date Temp Pulse Resp B/P B/P Mean Pulse Ox FiO2 08/07-08/08 37.0-38.0 71-81 16-18 100-113/51-60 67.2-77.8 99-100 24 hour I O ending at 0700: 08/08 0700 08/07 1900 Intake Total Output Total 828 Balance -828 Output, Urine 828 PATIENT WEIGHT: Weight (lb): 191 Weight (oz): 9.31 Weight (kg): 86.900 Physical Exam General appearance: alert, awake, no acu te distress, pleasant, conversational, mental status normal, no respiratory distress ENT: moist mucosal membranes Cardiovascular: normal heart sounds Respiratory: rales, rhonchi Abdomen: non-tender, soft, no distention, no gua rding, no rebound Genitourinary: zuñiga Skin: dry Diagnosis, Assessment Plan Problem List/A P: 1. Pressure injury of deep tissue of sacral reg ion 2. Renal failure 3. Gram-negative infection 4. UTI (urinary tract infection) 5. Atelectasis Free Text A P: 07-16-2020 BACTERMIA : WILL FINISH THE JOB WITH LINEZOLID. ON STERIDS FOR POSSIBLE ISN 07-17-20 BACTEREMIA CONTINUE LINEZOLID 07-18-20 PNA: TERAETD MIXED BACTERMIA: TRAETED, INCLDUING 14 D AYS OF ABX POST LAST NEGATIVE BLOOD CX FOR ENTEROCOCCI>>>> D/C ALL ABX PT IS ON 10 DAY COURSE OF STEROIDS FOR ? ISN ID WILL SIGN OFF 08-08-2020 DTI ?UTI ATELECTASIS FEVER ID PLAN:ERIN + AIR MATATRES + IS WILL ASK IF ZUÑIGA CAN COM OUT OR HAVE A SPT Electronically Signed by Faby Blanchard MD on 0 08/08/20 at 1009 Addendum 1: 08/10/20 1210 by Faby Blanchard MD COULD NOT BE SEEN DUE TO THE SEVER WEARTHER COND IITONS. ENTEROBACTER BACTEREMIA ENTEROBACTER + PSEUDOMONAS UTI MEROPENM X 10 DAYS Electronically Signed by Faby Blanchard MD on 0 08/10/20 at 1211 RPT #:[id number] END OF REPORT 2020-08-07 23:06:00-00:00 [facility] Nephrology Progress Note REPORT#:[id number] REPORT STATUS: Signed DATE:08/07/20 TIME: 2306 PATIENT: JORGE GOINS UNIT #: [id number] ROOM/BED: [address] : [birth year] AGE: 35 SEX: M ATTEND: Raphael Davila MD ADM AUTHOR: Ceferino De La Garza MD * ALL edits or amendments must be made on the [employer]idi/computer document * Subjective Comments: Patient seen at bedside, denies new complaints. Became hypotensive overnight. Started antibiotics. Urinalysis positive for UTI . Urine cultures pending. Objective General VS/I O: Vital Signs: Date Time Temp Pulse Resp B/P B/P Pulse O2 O2 F low FiO2 Mean Ox Delivery Rate 08/07 1950 37.1 81 18 100/51 67.2 100 Room air 08/07 1637 37.3 74 18 104/58 73.5 100 08/07 1140 37.3 77 18 101/58 72.2 99 08/07 1140 37.3 77 18 101/58 72.2 99 08/07 0828 39.0 81 19 96/52 66.5 99 08/07 0828 39.0 81 19 96/52 66.5 99 08/07 0437 37.8 86 16 96/50 65.3 99 Room air 08/06 2332 37.0 84 18 121/64 83.2 100 24 hour I O ending at 0700: 12 0700 02/ 1900 Intake Total Output Total 1700 Balance -1700 Output, Urine 1700 PATIENT WEIGHT: Weight (lb): 191 Weight (oz): 9.31 Weight (kg): 86.900 Medications Active Meds + DC'd Last 24 Hrs Magnesium Sulfate 50 ML Q2H IV (DC) Magnesium Sulfate 50 ML Q2H IV (DC) Cefepime HCl 1 GM Q12H IV Sterile Water 10 ML Sodium Chloride 1,000 ML .Q10H IV Vancomycin HCl 1,000 MG ONCE ONE IV (DC) Sodium Chloride 250 ML Furosemide 40 MG ONCE ONE IV (DC) Sodium Chloride 500 ML BOLUS ONCE ONE IV (DC) Hydrocodone Bitart/Acetaminophen 1 TAB Q6H PRN P RN PO Collagenase 1 APPLIC DAILY TOPICAL Aspirin 81 MG DAILY PO Atorvastatin Calcium 40 MG DAILY PO Nifedipine 30 MG Q6HR PO Isosorbide Mononitrate 30 MG BID PO Acetaminophen 650 MG Q4H PRN PRN PO Famotidine 20 MG DAILY PO Labetalol HCl 600 MG Q8HR PO Heparin Sodium (Porcine) 5,000 UNIT Q12HR SUBQ Heparin Sodium (Porcine) 2,000 UNIT DIALYSIS-DOS E BEFORE IV (CKD) Heparin Sodium (Porcine) 5,000 UNIT DIALYSIS-DOS E AFTER MISC Sodium Chloride 1,000 ML ASDIR PRN IV Labetalol HCl 10 MG Q6H PRN PRN IV Dextrose/Water 25 ML ASDIR PRN IV Glucagon 1 MG ASDIR PRN IM Insulin Human Lispro LOW DOSE SCALE ASDIR SUBQ Physical Exam ENT: moist mucous membranes Neck: no JVD, no masses or swelling Cardiovascular: normal heart sounds, regular rat e and rhythm Respiratory: aerating well, clear to auscultatio n Abdomen: normal bowel sounds, soft Extremities: no edema Musculoskeletal: decreased ROM 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 Diagnosis, Assessment Plan Free Text A P: JENNIFER hypotension AAA lactic acidosis severe metabolic acidosis- resolved Metabolic alkalosis - resolved Patient declined further Kayexalate. Dosed Lasix and started IV fluids. Follow-up urine cultures. Creatinine is remained stable. Blood pressures okay now Avoid nephrotoxins. We will continue to monitor. at 0830 RPT #:[id number] END OF REPORT 2020-08-07 22:58:00-00:00 [facility] Cardiology Progress Note REPORT#:[id number] REPORT STATUS: Signed DATE:08/07/20 TIME: 2257 PATIENT: JORGE GOINS UNIT #: [id number] ROOM/BED: [address] : 87 AGE: 34 SEX: M ATTEND: Raphael Davila MD ADM AUTHOR: Giancarlo hPan MD * ALL edits or amendments must be made on the el [employer]/computer document * Subjective Free Text Subj Notes Free Text Subj Notes: Patient resting otherwise really no other acute events at this time. Objective Physical Exam Head/Eyes: atraumatic, clear cornea, EOMI, brooklynn l conjunctiva/sclera, normocephalic, PERRL, PERRLA ENT: normal nose, normal pharynx, decannulated Neck: full range of motion, non-tender, normal thyroid, supple/no meningismus, no bruit/NL carotids, no JVD, no lymphadenopathy , no masses or swelling Cardiovascular: CV assessment: regular rate and rhythm, normal heart sounds Respiratory: on oxygen, clear to auscultation, n o distress Abdomen: non-tender, normal bowel sounds , no distention, no guarding, no mass/ organomegaly, no pulsatile mass, no rebound Upper extremity: UE assessment: normal capillary refill, no timur a Lower extremity: LE assessment: normal capillary refill, no timur a Musculoskeletal: full range of motion, normal in spection 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, oriented X 3, normal speech Skin: dry Lymphatics: axilla normal, inguinal normal, neck normal, no lymphadenopathy Psychiatry: normal judgment/insight, normal mood Diagnosis, Assessment Plan Free Text DxA P Notes Free Text DxA P Notes: 1. Hypertensive urgency/emergency - presented with severely elevated BP requiring 2 IV infusions, subsequently suffered PEA cardiac arrest - BP control improving - cont hydralazine 100mg Q8H, labetalol 600mg Q 8H - nifedipine 30mg QID, patients blood pressure much better controlled - losartan 50mg BID has been started will cont to monitor 2/4 - Patient's blood pressure has been for the better part controlled but he had one episode of blood pressure 160 otherwise no other complaints 2. Cardiac arrest - PEA in etiology, pt became hypothermic and fan bsequently bradycardic 3. Type B aortic dissection s/p EVAR - has residual descending aortic dissection ext ending into iliacs. No evidence of rupture on CTA. Reviewed by vascular surgery - appreciate assitance - optimal BP Control as above 4. Acute on chronic systolic heart failure -Improved significantly 5. Shock - resolved 6. JENNIFER on CKD Patient has not received dialysis in some time 7. Acute hypoxic respiratory failure -Patient has been decannulated from a trach per spective 8. Stroke: -Talk to patient about DOMINIK in preparation for p otential PFO closure however patient declined so we will continue medical man agement at this time Electronically Signed by Giancarlo Phan MD on 07/27 08/16 at 2259 RPT #:[id number] END OF REPORT 2020-08-07 14:53:00-00:00 [facility] Hospitalist Progress Note REPORT#:[id number] REPORT STATUS: Signed DATE:08/07/20 TIME: 1453 PATIENT: JORGE GOINS UNIT #: [id number] ROOM/BED: [address] : 86 AGE: 34 SEX: M ATTEND: Raphael Davila MD ADM AUTHOR: Sanju Guillory MD * ALL edits or amendments must be made on the el [employer]/computer document * Subjective Chief Complaint: Follow-up of acute CVA HPI: Patient spiked temperature of 102 earlie r today. Denies having any chest pain, no shortness of breath no urinary complaints no cough. Blood cultures were sent. Lactic acid came back normal. Patient was given 1 dose of IV cefepime and vancomycin and IV fluids. Review of Systems Constitutional: Denies: chills, fever. Respiratory: Denies: COATES (dyspnea on exertion), SOB. Cardiovascular: Denies: chest pain, palpitations. GI: Denies: abdominal pain, vomiting. All systems rev neg: except as marked Objective General VS/I O: Vital Signs: Date Time Temp Pulse Resp B/P B/P Pulse O2 O2 F low FiO2 Mean Ox Delivery Rate 08/07 1140 99.1 77 18 101/58 72.2 99 08/07 0828 102.2 81 19 96/52 66.5 99 08/07 0437 100.0 86 16 96/50 65.3 99 Room air 08/06 2332 98.6 84 18 121/64 83.2 100 08/06 2044 98.2 71 18 128/71 90.1 100 08/06 1618 98.2 66 16 123/66 85.2 99 Room air PATIENT WEIGHT: Weight (lb): 191 Weight (oz): 9.31 Weight (kg): 86.900 Medications: Active Meds + DC'd Last 24 Hrs Magnesium Sulfate 50 ML Q2H IV (DC) Cefepime HCl 1 GM Q12H IV Sterile Water 10 ML Sodium Chloride 1,000 ML .Q10H IV Vancomycin HCl 1,000 MG ONCE ONE IV (DC) Sodium Chloride 250 ML Furosemide 40 MG ONCE ONE IV (DC) Sodium Chloride 500 ML BOLUS ONCE ONE IV (DC) Dextrose/Water 25 ML ONCE ONE IV (DC) Insulin Human Regular 5 UNIT ONCE ONE IV (DC) Sodium Polystyrene Sulfonate 30 GM ONCE ONE PO ( DC) Hydrocodone Bitart/Acetaminophen 1 TAB Q6H PRN P RN PO Collagenase 1 APPLIC DAILY TOPICAL Aspirin 81 MG DAILY PO Atorvastatin Calcium 40 MG DAILY PO Nifedipine 30 MG Q6HR PO Isosorbide Mononitrate 30 MG BID PO Acetaminophen 650 MG Q4H PRN PRN PO Famotidine 20 MG DAILY PO Labetalol HCl 600 MG Q8HR PO Heparin Sodium (Porcine) 5,000 UNIT Q12HR SUBQ Heparin Sodium (Porcine) 2,000 UNIT DIALYSIS-DO SE BEFORE IV (CKD) Heparin Sodium (Porcine) 5,000 UNIT DIALYSIS-DOS E AFTER MISC Sodium Chloride 1,000 ML ASDIR PRN IV Labetalol HCl 10 MG Q6H PRN PRN IV Dextrose/Water 25 ML ASDIR PRN IV Glucagon 1 MG ASDIR PRN IM Insulin Human Lispro LOW DOSE SCALE ASDIR SUBQ Physical Exam General appearance: alert, awake, oriented, no a cute distress Head/Eyes: atraumatic Cardiovascular: normal heart sounds, regular rat e rhythm Respiratory: aerating well, clear to auscultatio n Abdomen: non-tender, normal bowel sounds, soft Extremities: no clubbing Results Findings/Data: Laboratory Tests 08/07 08/07 08/07 08/07 08/07 1339 1148 0955 0626 0439 Chemistry Sodium (137 - 145 mmol/L) 132 L Potassium (3.4 - 5.0 mmol/L) 6.4 *H Chloride (98 - 107 mmol/L) 100 Carbon Dioxide (22 - 30 mmol/L) 23 BUN (9 - 20 mg/dL) 31 H Creatinine (0.7 - 1.3 mg/dL) 1.8 H 1.6 H Glomerular Filtr Rate (>60) 64 Glucose (74 - 106 mg/dL) 92 POC Glucose (74 - 106 MG/DL) 84 89 Lactic Acid (0.7 - 2.0 mmol/L) 0.8 Calcium (8.4 - 10.2 mg/dL) 8.4 Phosphorus (2.5 - 4.5 mg/dL) 3.5 Magnesium (1.6 - 2.3 mg/dL) 1.1 L Total Bilirubin (0.2 - 1.3 mg/dL) 1.1 08/06 08/06 2042 1617 Chemistry POC Glucose (74 - 106 MG/DL) 106 96 Laboratory Tests 08/07 08/07 0955 0626 Hematology WBC (5.0 - 12.0 x10 3/uL) 8.0 RBC (4.70 - 6.10 x10 6/uL) 2.50 L Hgb (14.0 - 18.0 g/dL) 7.4 L Hct (37.0 - 49.0 %) 23.3 L MCV (80 - 94 fL) 93 MCH (27 - 31 pg) 29.6 MCHC (33 - 37 g/dL) 31.8 L RDW (11.5 - 15.5 %) 19.7 H Plt Count (130 - 400 x10 3/uL) 165 148 MPV (9.4 - 16.4 fL) 10.2 Neut % (Auto) (43 - 65 %) 92.4 H Lymph % (Auto) (20.5 - 45.5 %) 1.9 L Citrus % (Auto) (5.5 - 11.7 %) 4.2 L Eos % (Auto) (0.9 - 2.9 %) 0.4 L Baso % (Auto) (0.2 - 1.0 %) 0.1 L Neut # (Auto) (2.2 - 4.8 x10 3/uL) 7.42 H Lymph # (Auto) (1.3 - 2.9 x10 3/uL) 0.15 L Citrus # (Auto) (0.3 - 0.8 x10 3/uL) 0.34 Eos # (Auto) (0.0 - 0.2 x10 3/uL) 0.03 Baso # (Auto) (0.0 - 0.1 x10 3/uL) 0.01 Immature Gran % (0.0 - 2.0 %) 1.0 Nucleated RBC % (0 - 1.0 %) 0.0 Laboratory Tests 08/07 1028 Urines Urine Color (Yellow) Graeme H Urine Appearance (Clear) Cloudy H Urine pH (5.0 - 8.0) 5.0 Ur Specific Commerce (<1.030) 1.019 Urine Protein (Negative mg/dL) 30 (1+) H Urine Glucose (UA) (Negative) Negative Urine Ketones (Negative mg/dL) Negative Urine Blood (Negative) 1+ H Urine Nitrite (Negative) Negative Urine Bilirubin (Negative) Negative Urine Urobilinogen (Negative mg/dL) Negative Ur Leukocyte Esterase (Negative) 3+ H Urine RBC (<4 - 5 /HPF) 11-20 H Urine WBC (<4 - 5 /HPF) >100 H Urine WBC Clumps (None /HPF) Present H Ur Squamous Epith Cells (0 - 5 (RARE) /HPF) 0-5 (RARE) Amorphous Sediment (None /HPF) Rare H Urine Bacteria (None - Rare /HPF) Rare Urine Mucus (<Rare /LPF) Rare Radiology data: Recent Impressions: RADIOLOGY - XR CHEST 1 V 08/07 1207 Report Impression - Status: SIGNED Entered: 08/07/2020 1218 IMPRESSION: Interval removal of tracheostomy tube. No acute abnormality Impression By: [email or web address] - Vivian Youssef MD Diagnosis, Assessment Plan Free Text DxA P Notes Free text DxA P notes: 34-year-old male admitted for metabolic encephal opathy. A/P: 1. Acute encephalopathy - resolved 2. 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 -Patient has refused for LP per neurology 3. Acute ischemic strokes, -suspect embolic source + PFO closure per cardiology recs - Schedulled for DOMINIK -Cardiology following 4. S/p PEA arrest 06/11/20 -Resolved, rhythm back to normal 5. Hypertensive emergency - improved,continue ni fedipine, isosorbide, some labetalol. -Cardiology following. -Blood pressure stable on current regimen. 6. Acute respiratory failure -Patient was intubated followed by tracheostomy. -Tracheostomy has been remov ed and patient is breathing without any difficulty. 7. Type b aortic dissection 8. JENNIFER - Nephrology following. Kidney functions have im proved. Patient making good urine output. No need for hemodialysis. 9.Patchy white matter disease, could be secondar y to CVA Repeat MRI 07/16/20: patchy p eriventricular white matter disease appears improved but not resolved since 06/26/20 and may have related to u nderlying metabolic or toxic disorder and/or vasculitis. 10. Acute systolic congestive heart failure -Resolved. 11. Ruled in for sepsis -Patient had high-grade fever of 102, hypertensi ve. -Order to set of blood cultures. -Received vancomycin and IV cefepime. -Check chest x-ray and UA, normal. -Follow blood cultures results. -Consult infectious disease to follow. DVT prophylaxis: Subcu heparin Disposition: Awaiting DOMINIK. Follow blood culture results due t o recent onset of fever. Awaiting inpatient rehab. Quality: Gen Med Crit Care Current Medications Current medication review: I attest that the foregoing medication list in t he medical record is true, accurate, and complete to the best of my knowled ge. Electronically Signed by Sanju Guillory MD on 1 at 1654 [facility] #:[id number] END OF REPORT 2020-08-06 18:58:00-00:[address] [facility] ([facility]) Nephrology Progress Note REPORT#:[id number] REPORT STATUS: Signed DATE:08/06/20 TIME: 1857 PATIENT: JORGE GOINS UNIT #: [id number] ROOM/BED: [facility] : 86 AGE: 35 SEX: M ATTEND: Raphael Davila MD ADM AUTHOR: Ceferino De La Garza MD * ALL edits or amendments must be made on the rimidi/computer document * Subjective Comments: At bedside, no new complaints. Objective General VS/I O: Vital Signs: Date Time Temp Pulse Resp B/P B/P Pulse O2 O2 F low FiO2 Mean Ox Delivery Rate 08/06 1618 36.8 66 16 123/66 85.2 99 Room air 08/06 1147 36.9 63 16 151/73 98.7 98 Room air 08/06 0823 99 Room air 21 08/06 0819 36.9 65 18 113/66 81.8 99 08/06 0405 37.0 76 19 127/64 84.8 93 08/05 2241 36.0 77 20 116/68 83.8 99 08/05 2000 37.0 76 18 143/80 101.1 100 PATIENT WEIGHT: Weight (lb): 191 Weight (oz): 9.31 Weight (kg): 86.900 Medications Active Meds + DC'd Last 24 Hrs Hydrocodone Bitart/Acetaminophen 1 TAB Q6H PRN P RN PO Collagenase 1 APPLIC DAILY TOPICAL Aspirin 81 MG DAILY PO Atorvastatin Calcium 40 MG DAILY PO Nifedipine 30 MG Q6HR PO Isosorbide Mononitrate 30 MG BID PO Acetaminophen 650 MG Q4H PRN PRN PO Famotidine 20 MG DAILY PO Labetalol HCl 600 MG Q8HR PO Heparin Sodium (Porcine) 5,000 UNIT Q12HR SUBQ Heparin Sodium (Porcine) 2,000 UNIT DIALYSIS-DOS E BEFORE IV (CKD) Heparin Sodium (Porcine) 5,000 UNIT DIALYSIS-DOS E AFTER MISC Sodium Chloride 1,000 ML ASDIR PRN IV Labetalol HCl 10 MG Q6H PRN PRN IV Dextrose/Water 25 ML ASDIR PRN IV Glucagon 1 MG ASDIR PRN IM Insulin Human Lispro LOW DOSE SCALE ASDIR SUBQ Physical Exam General appearance: alert, awake ENT: moist mucous membranes Neck: no JVD, no masses or swelling Cardiovascular: normal heart sounds, regular rat e and rhythm Respiratory: aerating well, clear to auscultatio n Abdomen: normal bowel sounds, soft Extremities: no edema Musculoskeletal: decreased ROM 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 Results Findings/Data: Laboratory Tests 08/06 08/06 08/06 08/06 08/05 1617 1145 1144 0433 2001 Chemistry Sodium (137 - 145 mmol/L) 133 L 133 L Potassium (3.4 - 5.0 mmol/L) 6.0 H 6.2 H Chloride (98 - 107 mmol/L) 101 102 Carbon Dioxide (22 - 30 mmol/L) 24 22 BUN (9 - 20 mg/dL) 25 H 26 H Creatinine (0.7 - 1.3 mg/dL) 1.2 1.3 Glomerular Filtr Rate (>60) 90 82 Glucose (74 - 106 mg/dL) 80 91 POC Glucose (74 - 106 MG/DL) 96 73 L 83 Calcium (8.4 - 10.2 mg/dL) 8.9 8.8 Laboratory Tests 08/06 08/06 1144 0433 Hematology WBC (5.0 - 12.0 x10 3/uL) 6.2 7.3 RBC (4.70 - 6.10 x10 6/uL) 2.62 L 2.31 L Hgb (14.0 - 18.0 g/dL) 7.7 L 6.7 L Hct (37.0 - 49.0 %) 24.9 L 22.0 L MCV (80 - 94 fL) 95 H 95 H MCH (27 - 31 pg) 29.4 29.0 MCHC (33 - 37 g/dL) 30.9 L 30.5 L RDW (11.5 - 15.5 %) 19.1 H 19.0 H Plt Count (130 - 400 x10 3/uL) 174 174 MPV (9.4 - 16.4 fL) 9.9 10.0 Neut % (Auto) (43 - 65 %) 76.9 H 77.1 H Lymph % (Auto) (20.5 - 45.5 %) 12.3 L 11.3 L Citrus % (Auto) (5.5 - 11.7 %) 7.1 7.6 Eos % (Auto) (0.9 - 2.9 %) 3.2 H 3.4 H Baso % (Auto) (0.2 - 1.0 %) 0.2 0.1 L Neut # (Auto) (2.2 - 4.8 x10 3/uL) 4.73 5.64 H Lymph # (Auto) (1.3 - 2.9 x10 3/uL) 0.76 L 0.83 L Citrus # (Auto) (0.3 - 0.8 x10 3/uL) 0.44 0.56 Eos # (Auto) (0.0 - 0.2 x10 3/uL) 0.20 0.25 H Baso # (Auto) (0.0 - 0.1 x10 3/uL) 0.01 0.01 Immature Gran % (0.0 - 2.0 %) 0.3 0.5 Nucleated RBC % (0 - 1.0 %) 0.0 0.0 Diagnosis, Assessment Plan Free Text A P: JENNIFER hypotension AAA lactic acidosis severe metabolic acidosis- resolved Metabolic alkalosis - resolved Repeat potassium today was 6.0. Dose Kayexalate. Check labs in the morning. Making good urine Mental status has significantly improved Creatinine is remained stable. Blood pressures okay Avoid nephrotoxins. We will continue to monitor. at 0828 RPT #:[id number] END OF REPORT 2020-08-06 09:35:00-00:00 [facility] Neurology Progress Note REPORT#:[id number] REPORT STATUS: Signed DATE:08/06/20 TIME: 09 PATIENT: JORGE GOINS UNIT #: [id number] ROOM/BED: [facility] : 86 AGE: 34 SEX: M ATTEND: Raphael Davila MD ADM AUTHOR: Seda Vega BRAZING MACHINE TENDER * ALL edits or amendments must be made on the rimidi/computer document * Subjective Chief Complaint: no acute neuro events, resting in bed, doing goo d Objective General VS: Last Documented: Result Date Time Pulse Ox 98 08/06 1147 B/P 151/73 08/06 1147 B/P Mean 98.7 08/06 1147 O2 Delivery Room air 08/06 1147 Temp 98.4 08/06 1147 Pulse 63 08/06 1147 Resp 16 08/06 1147 FiO2 21 08/06 0823 O2 Flow Rate 5 07/28 2322 PATIENT WEIGHT: Weight (lb): 191 Weight (oz): 9.31 Weight (kg): 86.900 Medications Current Home Medications ALBUTEROL (PROAIR HFA 90 MCG/ACT 8.5 GM) 2 PUFF INH RTQ6H PRN PRN SOB ASPIRIN EC (ECOTRIN) 81 MG PO DAILY CARVEDILOL (COREG) 25 MG PO BID MEALS ACETAMINOPHEN/CODEINE (TYLENOL WITH CODE INE #4 300/60 MG) 1 TAB PO Q6H PRN PRN PAIN ATORVASTATIN (LIPITOR) 20 MG PO BEDTIME LOSARTAN (COZAAR) 100 MG PO DAILY NIFEdipine CC (ADALAT CC) 90 MG PO Q12HR HYDROCHLOROTHIAZIDE (HYDRODIURIL) 25 MG PO DAILY Active Meds + DC'd Last 24 Hrs Hydrocodone Bitart/Acetaminophen 1 TAB Q6H PRN P RN PO Collagenase 1 APPLIC DAILY TOPICAL Aspirin 81 MG DAILY PO Atorvastatin Calcium 40 MG DAILY PO Nifedipine 30 MG Q6HR PO Isosorbide Mononitrate 30 MG BID PO Acetaminophen 650 MG Q4H PRN PRN PO Famotidine 20 MG DAILY PO Labetalol HCl 600 MG Q8HR PO Heparin Sodium (Porcine) 5,000 UNIT Q12HR SUBQ Heparin Sodium (Porcine) 2,000 UNIT DIALYSIS-DOS E BEFORE IV (CKD) Heparin Sodium (Porcine) 5,000 UNIT DIALYSIS-DOS E AFTER MISC Sodium Chloride 1,000 ML ASDIR PRN IV Labetalol HCl 10 MG Q6H PRN PRN IV Dextrose/Water 25 ML ASDIR PRN IV Glucagon 1 MG ASDIR PRN IM Insulin Human Lispro LOW DOSE SCALE ASDIR SUBQ Physical Exam General appearance: alert, awake Results Findings/Data: Laboratory Tests 08/06 08/06 08/06 08/05 5404 0500 8828 2002 Chemistry Sodium (137 - 145 mmol/L) 133 L 133 L Potassium (3.4 - 5.0 mmol/L) 6.0 H 6.2 H Chloride (98 - 107 mmol/L) 101 102 Carbon Dioxide (22 - 30 mmol/L) 24 22 BUN (9 - 20 mg/dL) 25 H 26 H Creatinine (0.7 - 1.3 mg/dL) 1.2 1.3 Glomerular Filtr Rate (>60) 90 82 Glucose (74 - 106 mg/dL) 80 91 POC Glucose (74 - 106 MG/DL) 73 L 83 Calcium (8.4 - 10.2 mg/dL) 8.9 8.8 Laboratory Tests 08/06 08/06 2403 7336 Hematology WBC (5.0 - 12.0 x10 3/uL) 6.2 7.3 RBC (4.70 - 6.10 x10 6/uL) 2.62 L 2.31 L Hgb (14.0 - 18.0 g/dL) 7.7 L 6.7 L Hct (37.0 - 49.0 %) 24.9 L 22.0 L MCV (80 - 94 fL) 95 H 95 H MCH (27 - 31 pg) 29.4 29.0 MCHC (33 - 37 g/dL) 30.9 L 30.5 L RDW (11.5 - 15.5 %) 19.1 H 19.0 H Plt Count (130 - 400 x10 3/uL) 174 174 MPV (9.4 - 16.4 fL) 9.9 10.0 Neut % (Auto) (43 - 65 %) 76.9 H 77.1 H Lymph % (Auto) (20.5 - 45.5 %) 12.3 L 11.3 L Citrus % (Auto) (5.5 - 11.7 %) 7.1 7.6 Eos % (Auto) (0.9 - 2.9 %) 3.2 H 3.4 H Baso % (Auto) (0.2 - 1.0 %) 0.2 0.1 L Neut # (Auto) (2.2 - 4.8 x10 3/uL) 4.73 5.64 H Lymph # (Auto) (1.3 - 2.9 x10 3/uL) 0.76 L 0.83 L Citrus # (Auto) (0.3 - 0.8 x10 3/uL) 0.44 0.56 Eos # (Auto) (0.0 - 0.2 x10 3/uL) 0.20 0.25 H Baso # (Auto) (0.0 - 0.1 x10 3/uL) 0.01 0.01 Immature Gran % (0.0 - 2.0 %) 0.3 0.5 Nucleated RBC % (0 - 1.0 %) 0.0 0.0 Diagnosis, Assessment Plan Problem List/A P: 1. Hypertensive urgency 2. Metabolic encephalopathy 3. Critical illness myopathy Free Text A P: Assessment 1. Acute encephalopathy - resolved. Multifactori al - metabolic/hypertensive emergency/acute stroke 2. Lower extremity weakness- critical illness my opathy vs GBS 3. Acute ischemic strokes, suspect embolic sourc e, + PFO, b/l lower extremity dopplers negative 4. s/p PEA arrest 06/11/20 5. hypertensive emergency - improved 6. acute respiratory failure, s/p trach 7. type b aortic dissection 8. JENNIFER -pt refused LP for lower extremity weakness -repeat head CT unremarkable (2/3) Plan -no new recommendation -aggressive PT/OT -on asa, statin -continue care plan -d/w Dr Davila -neuro will sign off, please call for any furthe r needs Electronically Signed by Seda Vega NP on 07/27 07/16 at 1334 RPT #:[id number] END OF REPORT 2020-08-06 09:35:00-00:00 [facility] Neurology Progress Note REPORT#:[id number] REPORT STATUS: Signed DATE:08/06/20 TIME: 934 PATIENT: JORGE GOINS UNIT #: [id number] ROOM/BED: [address] : [birth year] AGE: 34 SEX: M ATTEND: Raphael Davila MD ADM AUTHOR: Seda Vega NP * ALL edits or amendments must be made on the rimidi/computer document * Seda Vega 08/06/20 0935: Subjective Chief Complaint: no acute neuro events, resting in bed, doing goo d Objective General VS: Last Documented: Result Date Time Pulse Ox 98 08/06 1147 B/P 151/73 08/06 1147 B/P Mean 98.7 08/06 1147 O2 Delivery Room air 08/06 114 Temp 98.4 08/06 1147 Pulse 63 08/06 1147 Resp 16 08/06 1147 FiO2 21 08/06 0823 O2 Flow Rate 5 07/28 2322 PATIENT WEIGHT: Weight (lb): 191 Weight (oz): 9.31 Weight (kg): 86.900 Medications Current Home Medications ALBUTEROL (PROAIR HFA 90 MCG/ACT 8.5 GM) 2 PUFF INH RTQ6H PRN PRN SOB ASPIRIN EC (ECOTRIN) 81 MG PO DAILY CARVEDILOL (COREG) 25 MG PO BID MEALS ACETAMINOPHEN/CODEINE (TYLENOL WITH CODE INE #4 300/60 MG) 1 TAB PO Q6H PRN PRN PAIN ATORVASTATIN (LIPITOR) 20 MG PO BEDTIME LOSARTAN (COZAAR) 100 MG PO DAILY NIFEdipine CC (ADALAT CC) 90 MG PO Q12HR HYDROCHLOROTHIAZIDE (HYDRODIURIL) 25 MG PO DAILY Active Meds + DC'd Last 24 Hrs Hydrocodone Bitart/Acetaminophen 1 TAB Q6H PRN P RN PO Collagenase 1 APPLIC DAILY TOPICAL Aspirin 81 MG DAILY PO Atorvastatin Calcium 40 MG DAILY PO Nifedipine 30 MG Q6HR PO Isosorbide Mononitrate 30 MG BID PO Acetaminophen 650 MG Q4H PRN PRN PO Famotidine 20 MG DAILY PO Labetalol HCl 600 MG Q8HR PO Heparin Sodium (Porcine) 5,000 UNIT Q12HR SUBQ Heparin Sodium (Porcine) 2,000 UNIT DIALYSIS-DOS E BEFORE IV (CKD) Heparin Sodium (Porcine) 5,000 UNIT DIALYSIS-DOS E AFTER MISC Sodium Chloride 1,000 ML ASDIR PRN IV Labetalol HCl 10 MG Q6H PRN PRN IV Dextrose/Water 25 ML ASDIR PRN IV Glucagon 1 MG ASDIR PRN IM Insulin Human Lispro LOW DOSE SCALE ASDIR SUBQ Physical Exam General appearance: alert, awake Results Findings/Data: Laboratory Tests 08/06 08/06 08/06 08/05 3811 6908 9437 2002 Chemistry Sodium (137 - 145 mmol/L) 133 L 133 L Potassium (3.4 - 5.0 mmol/L) 6.0 H 6.2 H Chloride (98 - 107 mmol/L) 101 102 Carbon Dioxide (22 - 30 mmol/L) 24 22 BUN (9 - 20 mg/dL) 25 H 26 H Creatinine (0.7 - 1.3 mg/dL) 1.2 1.3 Glomerular Filtr Rate (>60) 90 82 Glucose (74 - 106 mg/dL) 80 91 POC Glucose (74 - 106 MG/DL) 73 L 83 Calcium (8.4 - 10.2 mg/dL) 8.9 8.8 Laboratory Tests 08/06 08/06 6146 1895 Hematology WBC (5.0 - 12.0 x10 3/uL) 6.2 7.3 RBC (4.70 - 6.10 x10 6/uL) 2.62 L 2.31 L Hgb (14.0 - 18.0 g/dL) 7.7 L 6.7 L Hct (37.0 - 49.0 %) 24.9 L 22.0 L MCV (80 - 94 fL) 95 H 95 H MCH (27 - 31 pg) 29.4 29.0 MCHC (33 - 37 g/dL) 30.9 L 30.5 L RDW (11.5 - 15.5 %) 19.1 H 19.0 H Plt Count (130 - 400 x10 3/uL) 174 174 MPV (9.4 - 16.4 fL) 9.9 10.0 Neut % (Auto) (43 - 65 %) 76.9 H 77.1 H Lymph % (Auto) (20.5 - 45.5 %) 12.3 L 11.3 L Citrus % (Auto) (5.5 - 11.7 %) 7.1 7.6 Eos % (Auto) (0.9 - 2.9 %) 3.2 H 3.4 H Baso % (Auto) (0.2 - 1.0 %) 0.2 0.1 L Neut # (Auto) (2.2 - 4.8 x10 3/uL) 4.73 5.64 H Lymph # (Auto) (1.3 - 2.9 x10 3/uL) 0.76 L 0.8 3 L Citrus # (Auto) (0.3 - 0.8 x10 3/uL) 0.44 0.56 Eos # (Auto) (0.0 - 0.2 x10 3/uL) 0.20 0.25 H Baso # (Auto) (0.0 - 0.1 x10 3/uL) 0.01 0.01 Immature Gran % (0.0 - 2.0 %) 0.3 0.5 Nucleated RBC % (0 - 1.0 %) 0.0 0.0 Diagnosis, Assessment Plan Problem List/A P: 1. Hypertensive urgency 2. Metabolic encephalopathy 3. Critical illness myopathy Free Text A P: Assessment 1. Acute encephalopathy - resolved. Multifactori al - metabolic/hypertensive emergency/acute stroke 2. Lower extremity weakness- critical illness my opathy vs GBS 3. Acute ischemic strokes, suspect embolic sourc e, + PFO, b/l lower extremity dopplers negative 4. s/p PEA arrest 06/11/20 5. hypertensive emergency - improved 6. acute respiratory failure, s/p trach 7. type b aortic dissection 8. JENNIFER -pt refused LP for lower extremity weakness -repeat head CT unremarkable (2/3) Plan -no new recommendation -aggressive PT/OT -on asa, statin -continue care plan -d/w Dr Davila -neuro will sign off, please call for any furthe r needs Tanya Davila 08/06/20 1616: Attestations Physician Attestation Agree w/findings plan: Agree with the findings and plan as documented b y BRAZING MACHINE TENDER Seda Vega. Electronically Signed by Seda Vega NP on 07/27 07/16 at 1334 RPT #:[id number] END OF REPORT 2020-08-06 09:35:00-00:00 [facility] Neurology Progress Note REPORT#:[id number] REPORT STATUS: Signed DATE:08/06/20 TIME: 934 PATIENT: JORGE GOINS UNIT #: [id number] ROOM/BED: [address] : 86 AGE: 34 SEX: M ATTEND: Raphael Davila MD ADM AUTHOR: Seda Vega NP * ALL edits or amendments must be made on the rimidi/computer document * Seda Vega 08/06/20 0935: Subjective Chief Complaint: no acute neuro events, resting in bed, doing goo d Objective General VS: Last Documented: Result Date Time Pulse Ox 98 08/06 1147 B/P 151/73 08/06 1147 B/P Mean 98.7 08/06 1147 O2 Delivery Room air 08/06 1147 Temp 98.4 08/06 1147 Pulse 63 08/06 1147 Resp 16 08/06 1147 FiO2 21 08/06 0823 O2 Flow Rate 5 07/28 2322 PATIENT WEIGHT: Weight (lb): 191 Weight (oz): 9.31 Weight (kg): 86.900 Medications Current Home Medications ALBUTEROL (PROAIR HFA 90 MCG/ACT 8.5 GM) 2 PUFF INH RTQ6H PRN PRN SOB ASPIRIN EC (ECOTRIN) 81 MG PO DAILY CARVEDILOL (COREG) 25 MG PO BID MEALS ACETAMINOPHEN/CODEINE (TYLENOL WITH CODE INE #4 300/60 MG) 1 TAB PO Q6H PRN PRN PAIN ATORVASTATIN (LIPITOR) 20 MG PO BEDTIME LOSARTAN (COZAAR) 100 MG PO DAILY NIFEdipine CC (ADALAT CC) 90 MG PO Q12HR HYDROCHLOROTHIAZIDE (HYDRODIURIL) 25 MG PO DAILY Active Meds + DC'd Last 24 Hrs Hydrocodone Bitart/Acetaminophen 1 TAB Q6H PRN P RN PO Collagenase 1 APPLIC DAILY TOPICAL Aspirin 81 MG DAILY PO Atorvastatin Calcium 40 MG DAILY PO Nifedipine 30 MG Q6HR PO Isosorbide Mononitrate 30 MG BID PO Acetaminophen 650 MG Q4H PRN PRN PO Famotidine 20 MG DAILY PO Labetalol HCl 600 MG Q8HR PO Heparin Sodium (Porcine) 5,000 UNIT Q12HR SUBQ Heparin Sodium (Porcine) 2,000 UNIT DIALYSIS-DOS E BEFORE IV (CKD) Heparin Sodium (Porcine) 5,000 UNIT DIALYSIS-DOS E AFTER MISC Sodium Chloride 1,000 ML ASDIR PRN IV Labetalol HCl 10 MG Q6H PRN PRN IV Dextrose/Water 25 ML ASDIR PRN IV Glucagon 1 MG ASDIR PRN IM Insulin Human Lispro LOW DOSE SCALE ASDIR SUBQ Physical Exam General appearance: alert, awake Results Findings/Data: Laboratory Tests 08/06 08/06 08/06 08/05 8089 2553 4913 2001 Chemistry Sodium (137 - 145 mmol/L) 133 L 133 L Potassium (3.4 - 5.0 mmol/L) 6.0 H 6.2 H Chloride (98 - 107 mmol/L) 101 102 Carbon Dioxide (22 - 30 mmol/L) 24 22 BUN (9 - 20 mg/dL) 25 H 26 H Creatinine (0.7 - 1.3 mg/dL) 1.2 1.3 Glomerular Filtr Rate (>60) 90 82 Glucose (74 - 106 mg/dL) 80 91 POC Glucose (74 - 106 MG/DL) 73 L 83 Calcium (8.4 - 10.2 mg/dL) 8.9 8.8 Laboratory Tests 08/06 08/06 3706 5281 Hematology WBC (5.0 - 12.0 x10 3/uL) 6.2 7.3 RBC (4.70 - 6.10 x10 6/uL) 2.62 L 2.31 L Hgb (14.0 - 18.0 g/dL) 7.7 L 6.7 L Hct (37.0 - 49.0 %) 24.9 L 22.0 L MCV (80 - 94 fL) 95 H 95 H MCH (27 - 31 pg) 29.4 29.0 MCHC (33 - 37 g/dL) 30.9 L 30.5 L RDW (11.5 - 15.5 %) 19.1 H 19.0 H Plt Count (130 - 400 x10 3/uL) 174 174 MPV (9.4 - 16.4 fL) 9.9 10.0 Neut % (Auto) (43 - 65 %) 76.9 H 77.1 H Lymph % (Auto) (20.5 - 45.5 %) 12.3 L 11.3 L Citrus % (Auto) (5.5 - 11.7 %) 7.1 7.6 Eos % (Auto) (0.9 - 2.9 %) 3.2 H 3.4 H Baso % (Auto) (0.2 - 1.0 %) 0.2 0.1 L Neut # (Auto) (2.2 - 4.8 x10 3/uL) 4.73 5.64 H Lymph # (Auto) (1.3 - 2.9 x10 3/uL) 0.76 L 0.83 L Citrus # (Auto) (0.3 - 0.8 x10 3/uL) 0.44 0.56 Eos # (Auto) (0.0 - 0.2 x10 3/uL) 0.20 0.25 H Baso # (Auto) (0.0 - 0.1 x10 3/uL) 0.01 0.01 Immature Gran % (0.0 - 2.0 %) 0.3 0.5 Nucleated RBC % (0 - 1.0 %) 0.0 0.0 Diagnosis, Assessment Plan Problem List/A P: 1. Hypertensive urgency 2. Metabolic encephalopathy 3. Critical illness myopathy Free Text A P: Assessment 1. Acute encephalopathy - resolved. Multifactori al - metabolic/hypertensive emergency/acute stroke 2. Lower extremity weakness- critical illness my opathy vs GBS 3. Acute ischemic strokes, suspect embolic sourc e, + PFO, b/l lower extremity dopplers negative 4. s/p PEA arrest 06/11/20 5. hypertensive emergency - improved 6. acute respiratory failure, s/p trach 7. type b aortic dissection 8. JENNIFER -pt refused LP for lower extremity weakness -repeat head CT unremarkable (2/3) Plan -no new recommendation -aggressive PT/OT -on asa, statin -continue care plan -d/w Dr Davila -neuro will sign off, please call for any furthe r needs Tanya Davila 08/06/20 1616: Attestations Physician Attestation Agree w/findings plan: Agree with the findings and plan as documented martin y CHETAN Vega. Electronically Signed by Seda Vega NP on 07/27 07/16 at 1334 RPT #:[id number] END OF REPORT 2020-08-06 09:35:00-00:00 [facility] Neurology Progress Note REPORT#:[id number] REPORT STATUS: Signed DATE:08/06/20 TIME: 934 PATIENT: JORGE GOINS UNIT #: [id number] ROOM/BED: [address] : 86 AGE: 34 SEX: M ATTEND: Raphael Davila MD ADM AUTHOR: Seda Vega NP * ALL edits or amendments must be made on the rimidi/computer document * Seda Vega 08/06/20 0935: Subjective Chief Complaint: no acute neuro events, resting in bed, doing goo d Objective General VS: Last Documented: Result Date Time Pulse Ox 98 08/06 1147 B/P 151/73 08/06 1147 B/P Mean 98.7 08/06 1147 O2 Delivery Room air 08/06 1147 Temp 98.4 08/06 1147 Pulse 63 08/06 1147 Resp 16 08/06 1147 FiO2 21 08/06 0823 O2 Flow Rate 5 07/28 2322 PATIENT WEIGHT: Weight (lb): 191 Weight (oz): 9.31 Weight (kg): 86.900 Medications Current Home Medications ALBUTEROL (PROAIR HFA 90 MCG/ACT 8.5 GM) 2 PUFF INH RTQ6H PRN PRN SOB ASPIRIN EC (ECOTRIN) 81 MG PO DAILY CARVEDILOL (COREG) 25 MG PO BID MEALS ACETAMINOPHEN/CODEINE (TYLENOL WITH CODE INE #4 300/60 MG) 1 TAB PO Q6H PRN PRN PAIN ATORVASTATIN (LIPITOR) 20 MG PO BEDTIME LOSARTAN (COZAAR) 100 MG PO DAILY NIFEdipine CC (ADALAT CC) 90 MG PO Q12HR HYDROCHLOROTHIAZIDE (HYDRODIURIL) 25 MG PO DAILY Active Meds + DC'd Last 24 Hrs Hydrocodone Bitart/Acetaminophen 1 TAB Q6H PRN P RN PO Collagenase 1 APPLIC DAILY TOPICAL Aspirin 81 MG DAILY PO Atorvastatin Calcium 40 MG DAILY PO Nifedipine 30 MG Q6HR PO Isosorbide Mononitrate 30 MG BID PO Acetaminophen 650 MG Q4H PRN PRN PO Famotidine 20 MG DAILY PO Labetalol HCl 600 MG Q8HR PO Heparin Sodium (Porcine) 5,000 UNIT Q12HR SUBQ Heparin Sodium (Porcine) 2,000 UNIT DIALYSIS-DOS E BEFORE IV (CKD) Heparin Sodium (Porcine) 5,000 UNIT DIALYSIS-DOS E AFTER MISC Sodium Chloride 1,000 ML ASDIR PRN IV Labetalol HCl 10 MG Q6H PRN PRN IV Dextrose/Water 25 ML ASDIR PRN IV Glucagon 1 MG ASDIR PRN IM Insulin Human Lispro LOW DOSE SCALE ASDIR SUBQ Physical Exam General appearance: alert, awake Results Findings/Data: Laboratory Tests 08/06 08/06 08/06 08/05 0211 8700 3043 2002 Chemistry Sodium (137 - 145 mmol/L) 133 L 133 L Potassium (3.4 - 5.0 mmol/L) 6.0 H 6.2 H Chloride (98 - 107 mmol/L) 101 102 Carbon Dioxide (22 - 30 mmol/L) 24 22 BUN (9 - 20 mg/dL) 25 H 26 H Creatinine (0.7 - 1.3 mg/dL) 1.2 1.3 Glomerular Filtr Rate (>60) 90 82 Glucose (74 - 106 mg/dL) 80 91 POC Glucose (74 - 106 MG/DL) 73 L 83 Calcium (8.4 - 10.2 mg/dL) 8.9 8.8 Laboratory Tests 08/06 08/06 7066 2022 Hematology WBC (5.0 - 12.0 x10 3/uL) 6.2 7.3 RBC (4.70 - 6.10 x10 6/uL) 2.62 L 2.31 L Hgb (14.0 - 18.0 g/dL) 7.7 L 6.7 L Hct (37.0 - 49.0 %) 24.9 L 22.0 L MCV (80 - 94 fL) 95 H 95 H MCH (27 - 31 pg) 29.4 29.0 MCHC (33 - 37 g/dL) 30.9 L 30.5 L RDW (11.5 - 15.5 %) 19.1 H 19.0 H Plt Count (130 - 400 x10 3/uL) 174 174 MPV (9.4 - 16.4 fL) 9.9 10.0 Neut % (Auto) (43 - 65 %) 76.9 H 77.1 H Lymph % (Auto) (20.5 - 45.5 %) 12.3 L 11.3 L Citrus % (Auto) (5.5 - 11.7 %) 7.1 7.6 Eos % (Auto) (0.9 - 2.9 %) 3.2 H 3.4 H Baso % (Auto) (0.2 - 1.0 %) 0.2 0.1 L Neut # (Auto) (2.2 - 4.8 x10 3/uL) 4.73 5.64 H Lymph # (Auto) (1.3 - 2.9 x10 3/uL) 0.76 L 0.83 L Citrus # (Auto) (0.3 - 0.8 x10 3/uL) 0.44 0.56 Eos # (Auto) (0.0 - 0.2 x10 3/uL) 0.20 0.25 H Baso # (Auto) (0.0 - 0.1 x10 3/uL) 0.01 0.01 Immature Gran % (0.0 - 2.0 %) 0.3 0.5 Nucleated RBC % (0 - 1.0 %) 0.0 0.0 Diagnosis, Assessment Plan Problem List/A P: 1. Hypertensive urgency 2. Metabolic encephalopathy 3. Critical illness myopathy Free Text A P: Assessment 1. Acute encephalopathy - resolved. Multifactori al - metabolic/hypertensive emergency/acute stroke 2. Lower extremity weakness- critical illness my opathy vs GBS 3. Acute ischemic strokes, suspect embolic sourc e, + PFO, b/l lower extremity dopplers negative 4. s/p PEA arrest 06/11/20 5. hypertensive emergency - improved 6. acute respiratory failure, s/p trach 7. type b aortic dissection 8. JENNIFER -pt refused LP for lower extremity weakness -repeat head CT unremarkable (2/3) Plan -no new recommendation -aggressive PT/OT -on asa, statin -continue care plan -d/w Dr Davila -neuro will sign off, please call for any furthe r needs Tanya Davila 08/06/20 1616: Attestations Physician Attestation Agree w/findings plan: Agree with the findings and plan as documented martin y CHETAN Vega. Electronically Signed by Seda Vega NP on 07/27 07/16 at 1334 at 1619 RPT #:[id number] END OF REPORT 2020-08-05 22:55:00-00:00 [facility] Nephrology Progress Note REPORT#:[id number] REPORT STATUS: Signed DATE:08/05/20 TIME: 2254 PATIENT: JORGE GOINS UNIT #: [id number] ROOM/BED: [address] : 87 AGE: 34 SEX: M ATTEND: Raphael Davila MD ADM AUTHOR: Ceferino De La Garza MD * ALL edits or amendments must be made on the rimidi/computer document * Subjective Comments: events noted Objective General VS/I O: Vital Signs: Date Time Temp Pulse Resp B/P B/P Pulse O2 O2 F low FiO2 Mean Ox Delivery Rate 08/05 2240 36.0 77 20 116/68 83.8 99 08/05 1999 37.0 76 18 143/80 101.1 100 08/05 0740 36.6 72 17 105/60 75.0 99 Room air 08/05 0431 37.0 70 16 141/63 88.9 99 Room air 08/05 0117 37.4 68 14 132/62 85.7 100 Room air 24 hour I O ending at 0700: 08/05 0700 08/04 1900 Intake Total 1200 Output Total 2700 Balance -1500 Intake, Oral 1200 Output, Urine 2700 PATIENT WEIGHT: Weight (lb): 191 Weight (oz): 9.31 Weight (kg): 86.900 Medications Active Meds + DC'd Last 24 Hrs Hydrocodone Bitart/Acetaminophen 1 TAB Q6H PRN P RN PO Collagenase 1 APPLIC DAILY TOPICAL Aspirin 81 MG DAILY PO Atorvastatin Calcium 40 MG DAILY PO Nifedipine 30 MG Q6HR PO Isosorbide Mononitrate 30 MG BID PO Acetaminophen 650 MG Q4H PRN PRN PO Famotidine 20 MG DAILY PO Labetalol HCl 600 MG Q8HR PO Heparin Sodium (Porcine) 5,000 UNIT Q12HR SUBQ Heparin Sodium (Porcine) 2,000 UNIT DIALYSIS-DOS E BEFORE IV (CKD) Heparin Sodium (Porcine) 5,000 UNIT DIALYSIS-DOS E AFTER MISC Sodium Chloride 1,000 ML ASDIR PRN IV Labetalol HCl 10 MG Q6H PRN PRN IV Dextrose/Water 25 ML ASDIR PRN IV Glucagon 1 MG ASDIR PRN IM Insulin Human Lispro LOW DOSE SCALE ASDIR SUBQ Physical Exam General appearance: awake ENT: moist mucous membranes Neck: no JVD, no masses or swelling Cardiovascular: normal heart sounds, regular rat e and rhythm Respiratory: aerating well, clear to auscultatio n Abdomen: normal bowel sounds, soft Extremities: no edema Musculoskeletal: decreased ROM 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 Results Findings/Data: Laboratory Tests 08/05 2001 Chemistry POC Glucose (74 - 106 MG/DL) 83 Laboratory Tests 08/05 0328 Serology SARS-CoV-2 Ag (Rapid) (Negative) NEGATIVE Diagnosis, Assessment Plan Free Text A P: JENNIFER hypotension AAA lactic acidosis severe metabolic acidosis- resolved Metabolic alkalosis - resolved Making good urine Mental status has significantly improved cr and k is better at 2317 RPT #:[id number] END OF REPORT 2020-08-05 19:44:00-00:[address] [facility] ([facility]) Cardiology Progress Note REPORT#:[id number] REPORT STATUS: Signed DATE:08/05/20 TIME: 1943 PATIENT: JORGE GOINS UNIT #: [id number] ROOM/BED: [address] : 86 AGE: 34 SEX: M ATTEND: Raphael Davila MD ADM AUTHOR: Giancarlo Phan MD * ALL edits or amendments must be made on the el ectronic/computer document * Subjective Free Text Subj Notes Free Text Subj Notes: Patient states that he did well overnight. He de nies any chest pain shortness of breath PND orthopnea. He stated that he was not really 100% sure about going through with DOMINIK in preparation for PFO closure so we will continue to monitor very closely. Objective Physical Exam Head/Eyes: atraumatic, clear cornea, EOMI, bro[place] l conjunctiva/sclera, normocephalic, PERRL, PERRLA ENT: normal nose, normal pharynx, decannulated Neck: full range of motion, non-tender, normal thyroid, supple/no meningismus, no bruit/NL carotids, no JVD, no lymphadenopathy , no masses or swelling Cardiovascular: CV assessment: regular rate and rhythm, normal heart sounds Respiratory: on oxygen, clear to auscultation, n o distress Abdomen: non-tender, normal bowel sounds , no distention, no guarding, no mass/ organomegaly, no pulsatile mass, no rebound Upper extremity: UE assessment: normal capillary refill, no timur a Lower extremity: LE assessment: normal capillary refill, no timur a Musculoskeletal: full range of motion, normal in spection 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, oriented X 3, normal speech Skin: dry Lymphatics: axilla normal, inguinal normal, neck normal, no lymphadenopathy Psychiatry: normal judgment/insight, normal mood Diagnosis, Assessment Plan Free Text DxA P Notes Free Text DxA P Notes: 1. Hypertensive urgency/emergency - presented with severely elevated BP requiring 2 IV infusions, subsequently suffered PEA cardiac arrest - BP control improving - cont hydralazine 100mg Q8H, labetalol 600mg Q 8H - nifedipine 30mg QID, patients blood pressure much better controlled - losartan 50mg BID has been started will cont to monitor 2/4 - Patient's blood pressure has been for the better part controlled but he had one episode of blood pressure 160 otherwise no other complaints 2. Cardiac arrest - PEA in etiology, pt became hypothermic and fan bsequently bradycardic 3. Type B aortic dissection s/p EVAR - has residual descending aortic dissection ext ending into iliacs. No evidence of rupture on CTA. Reviewed by vascular surgery - appreciate assitance - optimal BP Control as above 4. Acute on chronic systolic heart failure -Improved significantly 5. Shock - resolved 6. JENNIFER on CKD Patient has not received dialysis in some time 7. Acute hypoxic respiratory failure -Patient has been decannulated from a trach per spective 8. Stroke: -Talk to patient about DOMINIK in preparation for p otential PFO closure however patient declined so we will continue medical man agement at this time Electronically Signed by Giancarlo Phan MD on 07/27 at 1945 RPT #:[id number] END OF REPORT 2020-08-05 11:02:00-00:00 [facility] Hospitalist Progress Note REPORT#:[id number] REPORT STATUS: Signed DATE:08/05/20 TIME: 1102 PATIENT: JORGE GOINS UNIT #: [id number] ROOM/BED: [address] : 86 AGE: 34 SEX: M ATTEND: Raphael Davila MD ADM AUTHOR: Sanju Guillory MD * ALL edits or amendments must be made on the rimidi/computer document * Subjective Chief Complaint: Follow-up of acute CVA HPI: Patient seen and examined. Denies having any new complaints. He was supposed to get DOMINIK today but it has been postponed until Monday. Review of Systems Free Text ROS Notes Free Text ROS Notes: Denies having any chest pain, shortness of breath, nausea, vomiting, diarrhea, no fever or chills, no abdominal pain, no headac he. Objective General VS/I O: Vital Signs: Date Time Temp Pulse Resp B/P B/P Pulse O2 O2 F low FiO2 Mean Ox Delivery Rate 08/05 0740 97.9 72 17 105/60 75.0 99 Room air 08/05 0431 98.6 70 16 141/63 88.9 99 Room air 08/05 0117 99.3 68 14 132/62 85.7 100 Room air 08/04 2046 97.5 62 16 110/58 75.5 100 Room air 08/04 1558 97.5 70 16 116/42 66.5 99 Room air 08/04 1209 98.2 71 16 139/69 92.4 100 Room air 24 hour I O ending at 0700: 08/05 0700 08/04 1900 Intake Total 1200 Output Total 2700 Balance -1500 Intake, Oral 1200 Output, Urine 2700 PATIENT WEIGHT: Weight (lb): 191 Weight (oz): 9.31 Weight (kg): 86.900 Medications: Active Meds + DC'd Last 24 Hrs Hydrocodone Bitart/Acetaminophen 1 TAB Q6H PRN P RN PO Collagenase 1 APPLIC DAILY TOPICAL Aspirin 81 MG DAILY PO Atorvastatin Calcium 40 MG DAILY PO Nifedipine 30 MG Q6HR PO Isosorbide Mononitrate 30 MG BID PO Acetaminophen 650 MG Q4H PRN PRN PO Famotidine 20 MG DAILY PO Labetalol HCl 600 MG Q8HR PO Heparin Sodium (Porcine) 5,000 UNIT Q12HR SUBQ Heparin Sodium (Porcine) 2,000 UNIT DIALYSIS-DOS E BEFORE IV (CKD) Heparin Sodium (Porcine) 5,000 UNIT DIALYSIS-DOS E AFTER MISC Sodium Chloride 1,000 ML ASDIR PRN IV Labetalol HCl 10 MG Q6H PRN PRN IV Dextrose/Water 25 ML ASDIR PRN IV Glucagon 1 MG ASDIR PRN IM Insulin Human Lispro LOW DOSE SCALE ASDIR SUBQ Physical Exam General appearance: alert, awake, oriented, no a cute distress Head/Eyes: atraumatic Cardiovascular: normal heart sounds, regular rat e rhythm Respiratory: aerating well, clear to auscultatio n Abdomen: non-tender, normal bowel sounds, soft Extremities: no clubbing Results Findings/Data: Laboratory Tests 08/04 1556 Chemistry POC Glucose (74 - 106 MG/DL) 93 88 Laboratory Tests 08/05 0328 Serology SARS-CoV-2 Ag (Rapid) (Negative) NEGATIVE Diagnosis, Assessment Plan Free Text DxA P Notes Free text DxA P notes: 34-year-old male admitted for metabolic encephal opathy. A/P: 1. Acute encephalopathy - resolved 2. 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 -Patient has refused for LP per neurology 3. Acute ischemic strokes, -suspect embolic source + PFO closure per cardiology recs - Schedulled for DOMINIK -Cardiology following 4. S/p PEA arrest 06/11/20 -Resolved, rhythm back to normal 5. Hypertensive emergency - improved,continue ni fedipine, isosorbide, some labetalol. -Cardiology following. -Blood pressure stable on current regimen. 6. Acute respiratory failure -Patient was intubated followed by tracheostomy. -Tracheostomy has been remov ed and patient is breathing without any difficulty. 7. Type b aortic dissection 8. JENNIFER - Nephrology following. Kidney functions have im proved. Patient making good urine output. No need for hemodialysis. 9.Patchy white matter disease, could be secondar y to CVA Repeat MRI 07/16/20: patchy p eriventricular white matter disease appears improved but not resolved since 06/26/20 and may have related to u nderlying metabolic or toxic disorder and/or vasculitis. 10. Acute systolic congestive heart failure -Resolved. DVT prophylaxis: Subcu heparin Disposition: Awaiting DOMINIK, scheduled for Monday. Awaiting inpatient rehab. Quality: Gen Med Crit Care Current Medications Current medication review: I attest that the foregoing medication list in t medical record is true, accurate, and complete to the best of my knowled ge. Electronically Signed by Sanju Guillory MD on 1 at 1524 RPT #:[id number] END OF REPORT 2020-08-05 08:42:00-00:00 [facility] Neurology Progress Note REPORT#:[id number] REPORT STATUS: Signed DATE:08/05/20 TIME: 841 PATIENT: JORGE GOINS UNIT #: [id number] [address] AGE: 34 SEX: M ATTEND: Raphael Davila MD ADM AUTHOR: Seda Vega NP * ALL edits or amendments must be made on the el [employer]/computer document * Subjective Chief Complaint: no acute neuro events, doing good, no discomfort , pt shook his head when ask about DOMINIK today Objective General VS: Last Documented: Result Date Time Pulse Ox 99 08/05 739 B/P 105/60 08/05 739 B/P Mean 75.0 08/05 0640 O2 Delivery Room air 08/05 739 Temp 97.9 08/05 739 Pulse 72 08/05 739 Resp 17 08/05 739 O2 Flow Rate 5 07/28 2322 FiO2 21 07/25 0928 PATIENT WEIGHT: Weight (lb): 191 Weight (oz): 9.31 Weight (kg): 86.900 Medications Current Home Medications ALBUTEROL (PROAIR HFA 90 MCG/ACT 8.5 GM) 2 PUFF INH RTQ6H PRN PRN SOB ASPIRIN EC (ECOTRIN) 81 MG PO DAILY CARVEDILOL (COREG) 25 MG PO BID MEALS ACETAMINOPHEN/CODEINE (TYLENOL WITH CODE INE #4 300/60 MG) 1 TAB PO Q6H PRN PRN PAIN ATORVASTATIN (LIPITOR) 20 MG PO BEDTIME LOSARTAN (COZAAR) 100 MG PO DAILY NIFEdipine CC (ADALAT CC) 90 MG PO Q12HR HYDROCHLOROTHIAZIDE (HYDRODIURIL) 25 MG PO DAILY Active Meds + DC'd Last 24 Hrs Hydrocodone Bitart/Acetaminophen 1 TAB Q6H PRN P RN PO Collagenase 1 APPLIC DAILY TOPICAL Aspirin 81 MG DAILY PO Atorvastatin Calcium 40 MG DAILY PO Nifedipine 30 MG Q6HR PO Isosorbide Mononitrate 30 MG BID PO Acetaminophen 650 MG Q4H PRN PRN PO Famotidine 20 MG DAILY PO Labetalol HCl 600 MG Q8HR PO Heparin Sodium (Porcine) 5,000 UNIT Q12HR SUBQ Heparin Sodium (Porcine) 2,000 UNIT DIALYSIS-DOS E BEFORE IV (CKD) Heparin Sodium (Porcine) 5,000 UNIT DIALYSIS-DOS E AFTER MISC Sodium Chloride 1,000 ML ASDIR PRN IV Labetalol HCl 10 MG Q6H PRN PRN IV Dextrose/Water 25 ML ASDIR PRN IV Glucagon 1 MG ASDIR PRN IM Insulin Human Lispro LOW DOSE SCALE ASDIR SUBQ Physical Exam General appearance: alert, awake Results Findings/Data: Laboratory Tests 08/04 08/04 08/04 2044 1556 1206 Chemistry POC Glucose (74 - 106 MG/DL) 93 88 104 Laboratory Tests 08/05 0328 Serology SARS-CoV-2 Ag (Rapid) (Negative) NEGATIVE Diagnosis, Assessment Plan Problem List/A P: 1. Hypertensive urgency 2. Metabolic encephalopathy 3. Critical illness myopathy Free Text A P: Assessment 1. Acute encephalopathy - resolved. Multifactori al - metabolic/hypertensive emergency/acute stroke 2. Lower extremity weakness- critical illness my opathy vs GBS 3. Acute ischemic strokes, suspect embolic sourc e, + PFO, b/l lower extremity dopplers negative 4. s/p PEA arrest 06/11/20 5. hypertensive emergency - improved 6. acute respiratory failure, s/p trach 7. type b aortic dissection 8. JENNIFER -pt refused LP for lower extremity weakness -repeat head CT unremarkable (/) Plan -monitor neuro status -pt refusing DOMINIK -aggressive PT/OT -on asa, statin -continue care plan -d/w pt, Dr Davila -will follow Electronically Signed by Seda Vega NP on 07/27 at 1041 RPT #:[id number] END OF REPORT 2020-08-05 08:42:00-00:00 [facility] Neurology Progress Note REPORT#:[id number] REPORT STATUS: Signed DATE:08/05/20 TIME: 08 PATIENT: JORGE GOINS UNIT #: [id number] ROOM/BED: [address] : [birth year] AGE: 34 SEX: M ATTEND: Raphael Davila MD ADM AUTHOR: Seda Vega BRAZING MACHINE TENDER * ALL edits or amendments must be made on the [employer]/computer document * Seda Vega 08/05/20 0842: Subjective Chief Complaint: no acute neuro events, doing good, no discomfort , pt shook his head when ask about DOMINIK today Objective General VS: Last Documented: Result Date Time Pulse Ox 99 08/05 0740 B/P 105/60 08/05 0740 B/P Mean 75.0 08/05 0740 O2 Delivery Room air 08/05 0740 Temp 97.9 08/05 0740 Pulse 72 08/05 0740 Resp 17 08/05 0740 O2 Flow Rate 5 07/28 2322 FiO2 21 07/25 0928 PATIENT WEIGHT: Weight (lb): 191 Weight (oz): 9.31 Weight (kg): 86.900 Medications Current Home Medications ALBUTEROL (PROAIR HFA 90 MCG/ACT 8.5 GM) 2 PUFF INH RTQ6H PRN PRN SOB ASPIRIN EC (ECOTRIN) 81 MG PO DAILY CARVEDILOL (COREG) 25 MG PO BID MEALS ACETAMINOPHEN/CODEINE (TYLENOL WITH CODE INE #4 300/60 MG) 1 TAB PO Q6H PRN PRN PAIN ATORVASTATIN (LIPITOR) 20 MG PO BEDTIME LOSARTAN (COZAAR) 100 MG PO DAILY NIFEdipine CC (ADALAT CC) 90 MG PO Q12HR HYDROCHLOROTHIAZIDE (HYDRODIURIL) 25 MG PO DAILY Active Meds + DC'd Last 24 Hrs Hydrocodone Bitart/Acetaminophen 1 TAB Q6H PRN P RN PO Collagenase 1 APPLIC DAILY TOPICAL Aspirin 81 MG DAILY PO Atorvastatin Calcium 40 MG DAILY PO Nifedipine 30 MG Q6HR PO Isosorbide Mononitrate 30 MG BID PO Acetaminophen 650 MG Q4H PRN PRN PO Famotidine 20 MG DAILY PO Labetalol HCl 600 MG Q8HR PO Heparin Sodium (Porcine) 5,000 UNIT Q12HR SUBQ Heparin Sodium (Porcine) 2,000 UNIT DIALYSIS-DOS E BEFORE IV (CKD) Heparin Sodium (Porcine) 5,000 UNIT DIALYSIS-DOS E AFTER MISC Sodium Chloride 1,000 ML ASDIR PRN IV Labetalol HCl 10 MG Q6H PRN PRN IV Dextrose/Water 25 ML ASDIR PRN IV Glucagon 1 MG ASDIR PRN IM Insulin Human Lispro LOW DOSE SCALE ASDIR SUBQ Physical Exam General appearance: alert, awake Results Findings/Data: Laboratory Tests 08/04 08/04 08/04 2044 1556 1206 Chemistry POC Glucose (74 - 106 MG/DL) 93 88 104 Laboratory Tests 08/05 0328 Serology SARS-CoV-2 Ag (Rapid) (Negative) NEGATIVE Diagnosis, Assessment Plan Problem List/A P: 1. Hypertensive urgency 2. Metabolic encephalopathy 3. Critical illness myopathy Free Text A P: Assessment 1. Acute encephalopathy - resolved. Multifactori al - metabolic/hypertensive emergency/acute stroke 2. Lower extremity weakness- critical illness my opathy vs GBS 3. Acute ischemic strokes, suspect embolic sourc e, + PFO, b/l lower extremity dopplers negative 4. s/p PEA arrest 06/11/20 5. hypertensive emergency - improved 6. acute respiratory failure, s/p trach 7. type b aortic dissection 8. JENNIFER -pt refused LP for lower extremity weakness -repeat head CT unremarkable (2/3) Plan -monitor neuro status -pt refusing DOMINIK -aggressive PT/OT -on asa, statin -continue care plan -d/w pt, Dr Davila -will follow Tanya Davila 08/05/20 1230: Attestations Physician Attestation Agree w/findings plan: Agree with the findings and plan as documented b y CHETAN Vega. Clinically improving. Electronically Signed by Seda Vega NP on 07/27 at 1041 at 1230 RPT #:[id number] END OF REPORT 2020-08-04 16:26:00-00:00 [facility] Nephrology Progress Note REPORT#:[id number] REPORT STATUS: Signed DATE:08/04/20 TIME: 1626 PATIENT: JORGE GOINS UNIT #: [id number] ROOM/BED: [address] : 86 AGE: 34 SEX: M ATTEND: Raphael Davila MD ADM AUTHOR: Ceferino De La Garza MD * ALL edits or amendments must be made on the rimidi/computer document * Subjective Comments: Events noted Objective General VS/I O: Vital Signs: Date Time Temp Pulse Resp B/P B/P Pulse O2 O2 F low FiO2 Mean Ox Delivery Rate 08/04 1558 36.4 70 16 116/42 66.5 99 Room air 08/04 1209 36.8 71 16 139/69 92.4 100 Room air 08/04 0722 36.8 67 16 128/69 89.0 100 Room air 08/04 0418 36.9 67 18 128/67 87.7 100 08/03 2330 36.0 68 18 136/77 96.4 100 08/03 2051 37.0 63 20 144/75 98.0 100 08/03 1706 36.9 63 20 158/80 105.9 100 Room air 24 hour I O ending at 0700: 08/04 0700 08/03 1900 Intake Total 600 Output Total 1000 Balance -400 Intake, Oral 600 Output, Urine 1000 PATIENT WEIGHT: Weight (lb): 191 Weight (oz): 9.31 Weight (kg): 86.900 Medications Active Meds + DC'd Last 24 Hrs Hydrocodone Bitart/Acetaminophen 1 TAB Q6H PRN P RN PO Collagenase 1 APPLIC DAILY TOPICAL Aspirin 81 MG DAILY PO Atorvastatin Calcium 40 MG DAILY PO Nifedipine 30 MG Q6HR PO Isosorbide Mononitrate 30 MG BID PO Acetaminophen 650 MG Q4H PRN PRN PO Famotidine 20 MG DAILY PO Labetalol HCl 600 MG Q8HR PO Heparin Sodium (Porcine) 5,000 UNIT Q12HR SUBQ Heparin Sodium (Porcine) 2,000 UNIT DIALYSIS-DOS E BEFORE IV (CKD) Heparin Sodium (Porcine) 5,000 UNIT DIALYSIS-DOS E AFTER MISC Sodium Chloride 1,000 ML ASDIR PRN IV Labetalol HCl 10 MG Q6H PRN PRN IV Dextrose/Water 25 ML ASDIR PRN IV Glucagon 1 MG ASDIR PRN IM Insulin Human Lispro LOW DOSE SCALE ASDIR SUBQ Physical Exam General appearance: awake ENT: moist mucous membranes Neck: no JVD, no masses or swelling Cardiovascular: normal heart sounds, regular rat e and rhythm Respiratory: aerating well, clear to auscultatio n Abdomen: normal bowel sounds, soft Extremities: no edema Musculoskeletal: decreased ROM 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 Results Findings/Data: Laboratory Tests 08/04 08/04 08/03 1206 0512 1703 Chemistry POC Glucose (74 - 106 MG/DL) 104 94 116 H Diagnosis, Assessment Plan Free Text A P: JENNIFER hypotension AAA lactic acidosis severe metabolic acidosis- resolved Metabolic alkalosis - resolved Making good urine Mental status has significantly improved cr and k is better at 1642 RPT #:[id number] END OF REPORT 2020-08-04 15:15:00-00:[address] [facility] ([facility] Hospitalist Progress Note REPORT#:[id number] REPORT STATUS: Signed DATE:08/04/20 TIME: 1515 PATIENT: JORGE GOINS UNIT #: [id number] ROOM/BED: [address] : 86 AGE: 34 SEX: M ATTEND: Raphael Davila MD ADM AUTHOR: Raymundo hTomas MD * ALL edits or amendments must be made on the el [employer]/computer document * Subjective Chief Complaint: Follow-up of acute CVA Review of Systems Constitutional: Denies: chills, fever. Allergy/Immun: Denies: allergic reaction. Respiratory: Denies: SOB. Cardiovascular: Denies: chest pain. Objective General VS/I O: Vital Signs: Date Time Temp Pulse Resp B/P B/P Pulse O2 O2 F low FiO2 Mean Ox Delivery Rate 08/04 1209 36.8 71 16 139/69 92.4 100 Room air 08/04 0722 36.8 67 16 128/69 89.0 100 Room air 08/04 0418 36.9 67 18 128/67 87.7 100 08/03 2330 36.0 68 18 136/77 96.4 100 08/03 2051 37.0 63 20 144/75 98.0 100 08/03 1706 36.9 63 20 158/80 105.9 100 Room air 24 hour I O ending at 0700: 08/04 0700 08/03 1900 Intake Total 600 Output Total 1000 Balance -400 Intake, Oral 600 Output, Urine 1000 PATIENT WEIGHT: Weight (lb): 191 Weight (oz): 9.31 Weight (kg): 86.900 Medications: Active Meds + DC'd Last 24 Hrs Hydrocodone Bitart/Acetaminophen 1 TAB Q6H PRN P RN PO Hydrocodone Bitart/Acetaminophen 1 TAB Q6H PRN P RN PO (DC) Collagenase 1 APPLIC DAILY TOPICAL Aspirin 81 MG DAILY PO Atorvastatin Calcium 40 MG DAILY PO Nifedipine 30 MG Q6HR PO Isosorbide Mononitrate 30 MG BID PO Acetaminophen 650 MG Q4H PRN PRN PO Famotidine 20 MG DAILY PO Labetalol HCl 600 MG Q8HR PO Heparin Sodium (Porcine) 5,000 UNIT Q12HR SUBQ Heparin Sodium (Porcine) 2,000 UNIT DIALYSIS-DOS E BEFORE IV (CKD) Heparin Sodium (Porcine) 5,000 UNIT DIALYSIS-DOS E AFTER MISC Sodium Chloride 1,000 ML ASDIR PRN IV Labetalol HCl 10 MG Q6H PRN PRN IV Dextrose/Water 25 ML ASDIR PRN IV Glucagon 1 MG ASDIR PRN IM Insulin Human Lispro LOW DOSE SCALE ASDIR SUBQ Physical Exam General appearance: alert, awake, oriented Head/Eyes: atraumatic Cardiovascular: normal heart sounds, regular rat e rhythm Respiratory: aerating well, clear to auscultatio n Abdomen: non-tender, normal bowel sounds, soft Extremities: no clubbing Results Findings/Data: Laboratory Tests 08/04 08/04 08/03 1206 0512 1703 Chemistry POC Glucose (74 - 106 MG/DL) 104 94 116 H Diagnosis, Assessment Plan Free Text DxA P Notes Free text DxA P notes: A/P: Patient seen and evaluated bedside. 1. Acute encephalopathy - resolved 2. Lower extremity weakness - critical illness myopathy -Neurology is on board, patient refused LP per n eurology note 3. Acute ischemic strokes, -suspect embolic source + PFO closure per cardiology recs - Schedulled for DOMINIK -Cardiology following 4. s/p PEA arrest 06/11/20 5. hypertensive emergency - improved,con tinue hydralazine,labetalol,clonidine, nifedipine,losartan cardio on board 6. acute respiratory failure, s/p trach...pulmon kenan on board 7. Type b aortic dissection 8. JENNIFER - Nephrology following. Kidney functions have im proved. Patient making good urine output. No need for hemodialysis. 9.Stroke....MRI multiple ischemic cva.......mau gement per neuro 10.systolic CHF ...improving gi ppx: pepcid dvt ppx: heparin at 1517 RPT #:[id number] END OF REPORT 2020-08-04 09:02:00-00:00 [facility] Neurology Progress Note REPORT#:[id number] REPORT STATUS: Signed DATE:08/04/20 TIME: 901 PATIENT: JORGE GOINS UNIT #: [id number] ROOM/BED: [address] : 86 AGE: 34 SEX: M ATTEND: Raphael Davila MD ADM AUTHOR: Seda Vega BRAZING MACHINE TENDER * ALL edits or amendments must be made on the [employer]idi/computer document * Subjective Chief Complaint: no acute neuro events, doing much better, denied discomfort Objective General VS: Last Documented: Result Date Time Pulse Ox 100 08/04 1209 B/P 139/69 08/04 1209 B/P Mean 92.4 08/04 1209 O2 Delivery Room air 08/04 120 Temp 98.2 08/04 1209 Pulse 71 08/04 1209 Resp 16 08/04 1209 O2 Flow Rate 5 07/28 2322 FiO2 21 07/25 0928 PATIENT WEIGHT: Weight (lb): 191 Weight (oz): 9.31 Weight (kg): 86.900 Medications Current Home Medications ALBUTEROL (PROAIR HFA 90 MCG/ACT 8.5 GM) 2 PUFF INH RTQ6H PRN PRN SOB ASPIRIN EC (ECOTRIN) 81 MG PO DAILY CARVEDILOL (COREG) 25 MG PO BID MEALS ACETAMINOPHEN/CODEINE (TYLENOL WITH CODE INE #4 300/60 MG) 1 TAB PO Q6H PRN PRN PAIN ATORVASTATIN (LIPITOR) 20 MG PO BEDTIME LOSARTAN (COZAAR) 100 MG PO DAILY NIFEdipine CC (ADALAT CC) 90 MG PO Q12HR HYDROCHLOROTHIAZIDE (HYDRODIURIL) 25 MG PO DAILY Active Meds + DC'd Last 24 Hrs Hydrocodone Bitart/Acetaminophen 1 TAB Q6H PRN P RN PO Hydrocodone Bitart/Acetaminophen 1 TAB Q6H PRN PRN PO (DC) Collagenase 1 APPLIC DAILY TOPICAL Aspirin 81 MG DAILY PO Atorvastatin Calcium 40 MG DAILY PO Nifedipine 30 MG Q6HR PO Isosorbide Mononitrate 30 MG BID PO Acetaminophen 650 MG Q4H PRN PRN PO Famotidine 20 MG DAILY PO Labetalol HCl 600 MG Q8HR PO Heparin Sodium (Porcine) 5,000 UNIT Q12HR SUBQ Heparin Sodium (Porcine) 2,000 UNIT DIALYSIS-DOS E BEFORE IV (CKD) Heparin Sodium (Porcine) 5,000 UNIT DIALYSIS-DOS E AFTER MISC Sodium Chloride 1,000 ML ASDIR PRN IV Labetalol HCl 10 MG Q6H PRN PRN IV Dextrose/Water 25 ML ASDIR PRN IV Glucagon 1 MG ASDIR PRN IM Insulin Human Lispro LOW DOSE SCALE ASDIR SUBQ Physical Exam General appearance: alert, awake Results Findings/Data: Laboratory Tests 08/04 08/04 08/03 1206 0512 1703 Chemistry POC Glucose (74 - 106 MG/DL) 104 94 116 H Diagnosis, Assessment Plan Problem List/A P: 1. Hypertensive urgency 2. Metabolic encephalopathy 3. Critical illness myopathy Free Text A P: Assessment 1. Acute encephalopathy - resolved. Multifactori al - metabolic/hypertensive emergency/acute stroke 2. Lower extremity weakness- critical illness my opathy vs GBS 3. Acute ischemic strokes, suspect embolic sourc e, + PFO, b/l lower extremity dopplers negative 4. s/p PEA arrest 06/11/20 5. hypertensive emergency - improved 6. acute respiratory failure, s/p trach 7. type b aortic dissection 8. JENNIFER -pt refused LP for lower extremity weakness -repeat head CT unremarkable (07/29) Plan -monitor neuro status -DOMINIK (08/05) -aggressive PT/OT -on asa, statin -continue medical management -d/w pt, Dr Davila -will follow Electronically Signed by Seda Vega NP on 03/16 at 1453 RPT #:[id number] END OF REPORT 2020-08-04 09:02:00-00:00 [facility] Neurology Progress Note REPORT#:[id number] REPORT STATUS: Signed DATE:08/04/20 TIME: 901 PATIENT: OJRGE GOINS UNIT #: [id number] ROOM/BED: [address] : 86 AGE: 34 SEX: M ATTEND: Raphael Davila MD ADM AUTHOR: Seda Vega NP * ALL edits or amendments must be made on the el [employer]/computer document * Seda Vega 08/04/20 09: Subjective Chief Complaint: no acute neuro events, doing much better, denied discomfort Objective General VS: Last Documented: Result Date Time Pulse Ox 100 08/04 1209 B/P 139/69 08/04 1209 B/P Mean 92.4 08/04 1209 O2 Delivery Room air 08/04 1209 Temp 98.2 08/04 1209 Pulse 71 08/04 1209 Resp 16 08/04 1209 O2 Flow Rate 5 07/28 2322 FiO2 21 07/25 0928 PATIENT WEIGHT: Weight (lb): 191 Weight (oz): 9.31 Weight (kg): 86.900 Medications Current Home Medications ALBUTEROL (PROAIR HFA 90 MCG/ACT 8.5 GM) 2 PUFF INH RTQ6H PRN PRN SOB ASPIRIN EC (ECOTRIN) 81 MG PO DAILY CARVEDILOL (COREG) 25 MG PO BID MEALS ACETAMINOPHEN/CODEINE (TYLENOL WITH CODE INE #4 300/60 MG) 1 TAB PO Q6H PRN PRN PAIN ATORVASTATIN (LIPITOR) 20 MG PO BEDTIME LOSARTAN (COZAAR) 100 MG PO DAILY NIFEdipine CC (ADALAT CC) 90 MG PO Q12HR HYDROCHLOROTHIAZIDE (HYDRODIURIL) 25 MG PO DAILY Active Meds + DC'd Last 24 Hrs Hydrocodone Bitart/Acetaminophen 1 TAB Q6H PRN P RN PO Hydrocodone Bitart/Acetaminophen 1 TAB Q6H PRN P RN PO (DC) Collagenase 1 APPLIC DAILY TOPICAL Aspirin 81 MG DAILY PO Atorvastatin Calcium 40 MG DAILY PO Nifedipine 30 MG Q6HR PO Isosorbide Mononitrate 30 MG BID PO Acetaminophen 650 MG Q4H PRN PRN PO Famotidine 20 MG DAILY PO Labetalol HCl 600 MG Q8HR PO Heparin Sodium (Porcine) 5,000 UNIT Q12HR SUBQ Heparin Sodium (Porcine) 2,000 UNIT DIALYSIS-DOS E BEFORE IV (CKD) Heparin Sodium (Porcine) 5,000 UNIT DIALYSIS-DOS E AFTER MISC Sodium Chloride 1,000 ML ASDIR PRN IV Labetalol HCl 10 MG Q6H PRN PRN IV Dextrose/Water 25 ML ASDIR PRN IV Glucagon 1 MG ASDIR PRN IM Insulin Human Lispro LOW DOSE SCALE ASDIR SUBQ Physical Exam General appearance: alert, awake Results Findings/Data: Laboratory Tests 08/04 08/04 08/03 1206 0512 1703 Chemistry POC Glucose (74 - 106 MG/DL) 104 94 116 H Diagnosis, Assessment Plan Problem List/A P: 1. Hypertensive urgency 2. Metabolic encephalopathy 3. Critical illness myopathy Free Text A P: Assessment 1. Acute encephalopathy - resolved. Multifactori al - metabolic/hypertensive emergency/acute stroke 2. Lower extremity weakness- critical illness my opathy vs GBS 3. Acute ischemic strokes, suspect embolic sourc e, + PFO, b/l lower extremity dopplers negative 4. s/p PEA arrest 06/11/20 5. hypertensive emergency - improved 6. acute respiratory failure, s/p trach 7. type b aortic dissection 8. JENNIFER -pt refused LP for lower extremity weakness -repeat head CT unremarkable (07/29) Plan -monitor neuro status -DOMINIK (08/05) -aggressive PT/OT -on asa, statin -continue medical management -d/w pt, Dr Davila -will follow Tanya Davila 08/04/20 1710: Attestations Physician Attestation Agree w/findings plan: Agree with the findings and plan as documented b y CHETAN Vega. Electronically Signed by Seda Vega NP on 03/16 at 1453 RPT #:[id number] END OF REPORT 2020-08-04 09:02:00-00:00 [facility] Neurology Progress Note REPORT#:[id number] REPORT STATUS: Signed DATE:08/04/20 TIME: 901 PATIENT: JORGE GOINS UNIT #: [id number] ROOM/BED: [address] : 86 AGE: 34 SEX: M ATTEND: Raphael Davila MD ADM AUTHOR: Seda Vega NP * ALL edits or amendments must be made on the rimidi/computer document * Seda Vega 08/04/20 0902: Subjective Chief Complaint: no acute neuro events, doing much better, denied discomfort Objective General VS: Last Documented: Result Date Time Pulse Ox 100 08/04 1209 B/P 139/69 08/04 1209 B/P Mean 92.4 08/04 1209 O2 Delivery Room air 08/04 1209 Temp 98.2 08/04 1209 Pulse 71 08/04 1209 Resp 16 08/04 1209 O2 Flow Rate 5 07/28 2322 FiO2 21 07/25 927 PATIENT WEIGHT: Weight (lb): 191 Weight (oz): 9.31 Weight (kg): 86.900 Medications Current Home Medications ALBUTEROL (PROAIR HFA 90 MCG/ACT 8.5 GM) 2 PUFF INH RTQ6H PRN PRN SOB ASPIRIN EC (ECOTRIN) 81 MG PO DAILY CARVEDILOL (COREG) 25 MG PO BID MEALS ACETAMINOPHEN/CODEINE (TYLENOL WITH CODE INE #4 300/60 MG) 1 TAB PO Q6H PRN PRN PAIN ATORVASTATIN (LIPITOR) 20 MG PO BEDTIME LOSARTAN (COZAAR) 100 MG PO DAILY NIFEdipine CC (ADALAT CC) 90 MG PO Q12HR HYDROCHLOROTHIAZIDE (HYDRODIURIL) 25 MG PO DAILY Active Meds + DC'd Last 24 Hrs Hydrocodone Bitart/Acetaminophen 1 TAB Q6H PRN P RN PO Hydrocodone Bitart/Acetaminophen 1 TAB Q6H PRN P RN PO (DC) Collagenase 1 APPLIC DAILY TOPICAL Aspirin 81 MG DAILY PO Atorvastatin Calcium 40 MG DAILY PO Nifedipine 30 MG Q6HR PO Isosorbide Mononitrate 30 MG BID PO Acetaminophen 650 MG Q4H PRN PRN PO Famotidine 20 MG DAILY PO Labetalol HCl 600 MG Q8HR PO Heparin Sodium (Porcine) 5,000 UNIT Q12HR SUBQ Heparin Sodium (Porcine) 2,000 UNIT DIALYSIS-DOS E BEFORE IV (CKD) Heparin Sodium (Porcine) 5,000 UNIT DIALYSIS-DOS E AFTER MISC Sodium Chloride 1,000 ML ASDIR PRN IV Labetalol HCl 10 MG Q6H PRN PRN IV Dextrose/Water 25 ML ASDIR PRN IV Glucagon 1 MG ASDIR PRN IM Insulin Human Lispro LOW DOSE SCALE ASDIR SUBQ Physical Exam General appearance: alert, awake Results Findings/Data: Laboratory Tests 08/04 08/04 08/03 1206 0512 1703 Chemistry POC Glucose (74 - 106 MG/DL) 104 94 116 H Diagnosis, Assessment Plan Problem List/A P: 1. Hypertensive urgency 2. Metabolic encephalopathy 3. Critical illness myopathy Free Text A P: Assessment 1. Acute encephalopathy - resolved. Multifactori al - metabolic/hypertensive emergency/acute stroke 2. Lower extremity weakness- critical illness my opathy vs GBS 3. Acute ischemic strokes, suspect embolic sourc e, + PFO, b/l lower extremity dopplers negative 4. s/p PEA arrest 06/11/20 5. hypertensive emergency - improved 6. acute respiratory failure, s/p trach 7. type b aortic dissection 8. JENNIFER -pt refused LP for lower extremity weakness -repeat head CT unremarkable (2/3) Plan -monitor neuro status -DOMINIK (08/05) -aggressive PT/OT -on asa, statin -continue medical management -d/w pt, Dr Davila -will follow Tanya Davila 08/04/20 1710: Attestations Physician Attestation Agree w/findings plan: Agree with the findings and plan as documented b y CHETAN Vega. Electronically Signed by Seda Vega NP on 03/16 at 1453 at 1711 RPT #:[id number] END OF REPORT 2020-08-03 17:38:00-00:00 [facility] Card[facility] Progress Note REPORT#:[id number] REPORT STATUS: Signed DATE:08/03/20 TIME: 173 PATIENT: JORGE GOINS UNIT #: [id number] ROOM/BED: [address] : 86 AGE: 34 SEX: M ATTEND: Raphael Davila MD ADM AUTHOR: Giancarlo Phan MD * ALL edits or amendments must be made on the rimidi/computer document * Subjective Free Text Subj Notes Free Text Subj Notes: Patient did well overnight. Denies chest pain, s hortness of breath, palpitations or syncope. Ove rall really no other acute complaints at this time. Objective Physical Exam Head/Eyes: atraumatic, clear cornea, EOMI, brooklynn l conjunctiva/sclera, normocephalic, PERRL, PERRLA ENT: normal nose, normal pharynx, decannulated Neck: full range of motion, non-tender, normal thyroid, supple/no meningismus, no bruit/NL carotids, no JVD, no lymphadenopathy , no masses or swelling Cardiovascular: CV assessment: regular rate and rhythm, normal heart sounds Respiratory: on oxygen, clear to auscultation, n o distress Abdomen: non-tender, normal bowel sounds , no distention, no guarding, no mass/ organomegaly, no pulsatile mass, no rebound Upper extremity: UE assessment: normal capillary refill, no timur a Lower extremity: LE assessment: normal capillary refill, no timur a Musculoskeletal: full range of motion, normal in spection 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, oriented X 3, normal speech Skin: dry Lymphatics: axilla normal, inguinal normal, neck normal, no lymphadenopathy Psychiatry: normal judgment/insight, normal mood Diagnosis, Assessment Plan Free Text DxA P Notes Free Text DxA P Notes: 1. Hypertensive urgency/emergency - presented with severely elevated BP requiring 2 IV infusions, subsequently suffered PEA cardiac arrest - BP control improving - cont hydralazine 100mg Q8H, labetalol 600mg Q 8H - nifedipine 30mg QID, patients blood pressure much better controlled - losartan 50mg BID has been started will cont to monitor 2/4 - Patient's blood pressure has been for the better part controlled but he had one episode of blood pressure 160 otherwise no other complaints 2. Cardiac arrest - PEA in etiology, pt became hypothermic and fan bsequently bradycardic 3. Type B aortic dissection s/p EVAR - has residual descending aortic dissection ext ending into iliacs. No evidence of rupture on CTA. Reviewed by vascular surgery - appreciate assitance - optimal BP Control as above 4. Acute on chronic systolic heart failure -Improved significantly 5. Shock - resolved 6. JENNIFER on CKD Patient has not received dialysis in some time 7. Acute hypoxic respiratory failure -Patient has been decannulated from a trach per spective 8. Stroke: - CT head and MRI with evidence of prior CVA - TTE with possible PFO - Close patient's PFO on Monday Electronically Signed by Giancarlo Phan MD on 02/13 at 1739 RPT #:[id number] END OF REPORT 2020-08-03 16:08:00-00:00 [facility] Hospitalist Progress Note REPORT#:[id number] REPORT STATUS: Signed DATE:08/03/20 TIME: 1608 PATIENT: JORGE GOINS UNIT #: [id number] ROOM/BED: [facility] : 86 AGE: 34 SEX: M ATTEND: Raphael Davila MD ADM AUTHOR: Raymundo Thomas MD * ALL edits or amendments must be made on the el ectronic/computer document * Subjective Chief Complaint: Follow-up of acute CVA Review of Systems Constitutional: Denies: chills, fever. Allergy/Immun: Denies: allergic reaction. Respiratory: Denies: SOB. Cardiovascular: Denies: chest pain. Objective General VS/I O: Vital Signs: Date Time Temp Pulse Resp B/P B/P Pulse O2 O2 F low FiO2 Mean Ox Delivery Rate 08/03 1505 99 Room air 08/03 1158 37.0 55 19 114/58 77.0 100 Room air 08/03 0908 66 98/58 71.7 100 Room air 08/03 0745 36.9 66 18 111/62 78.6 100 Room air 08/03 0405 37.0 63 18 110/65 80.0 99 08/02 2301 36.4 85 20 142/76 97.8 94 08/02 2006 37.0 65 19 109/63 78.3 96 08/02 1620 36.7 67 18 117/63 81.1 100 Room air 24 hour I O ending at 0700: 08/03 0700 08/02 1900 Intake Total 1550 Output Total 1000 Balance 550 Intake, Oral 1550 Output, Urine 1000 PATIENT WEIGHT: Weight (lb): 191 Weight (oz): 9.31 Weight (kg): 86.900 Medications: Active Meds + DC'd Last 24 Hrs Hydrocodone Bitart/Acetaminophen 1 TAB Q6H PRN P RN PO (DC) Collagenase 1 APPLIC DAILY TOPICAL Aspirin 81 MG DAILY PO Atorvastatin Calcium 40 MG DAILY PO Nifedipine 30 MG Q6HR PO Isosorbide Mononitrate 30 MG BID PO Acetaminophen 650 MG Q4H PRN PRN PO Famotidine 20 MG DAILY PO Labetalol HCl 600 MG Q8HR PO Heparin Sodium (Porcine) 5,000 UNIT Q12HR SUBQ Heparin Sodium (Porcine) 2,000 UNIT DIALYSIS-DO SE BEFORE IV (CKD) Heparin Sodium (Porcine) 5,000 UNIT DIALYSIS-DOS E AFTER MISC Sodium Chloride 1,000 ML ASDIR PRN IV Labetalol HCl 10 MG Q6H PRN PRN IV Dextrose/Water 25 ML ASDIR PRN IV Glucagon 1 MG ASDIR PRN IM Insulin Human Lispro LOW DOSE SCALE ASDIR SUBQ Physical Exam General appearance: alert, awake Head/Eyes: atraumatic Cardiovascular: normal heart sounds, regular rat e rhythm Respiratory: aerating well, clear to auscultatio n Abdomen: non-tender, normal bowel sounds, soft Extremities: no clubbing Results Findings/Data: Laboratory Tests 08/03 08/03 08/02 08/02 1078 3194 2006 1735 Chemistry POC Glucose (74 - 106 MG/DL) 107 H 81 110 H 111 H Diagnosis, Assessment Plan Free Text DxA P Notes Free text DxA P notes: A/P: Patient seen and evaluated bedside. 1. Acute encephalopathy - resolved 2. Lower extremity weakness - critical illness myopathy -Neurology is on board, patient refused LP per n eurology note 3. Acute ischemic strokes, -suspect embolic source + PFO closure on Monday per cardio note -Cardiology following 4. s/p PEA arrest 06/11/20 5. hypertensive emergency - improved,con tinue hydralazine,labetalol,clonidine, nifedipine,losartan cardio on board 6. acute respiratory failure, s/p trach...pulmon kenan on board 7. Type b aortic dissection 8. JENNIFER - Nephrology following. Kidney functions have im proved. Patient making good urine output. No need for hemodialysis. 9.Stroke....MRI multiple ischemic cva.......mau gement per neuro 10.systolic CHF ...improving gi ppx: pepcid dvt ppx: heparin at 1611 RPT #:[id number] END OF REPORT 2020-08-03 14:52:00-00:00 [facility] Neurology Progress Note REPORT#:[id number] REPORT STATUS: Signed DATE:08/03/20 TIME: 1452 PATIENT: JORGE GOINS UNIT #: [id number] ROOM/BED: [facility] : 86 AGE: 34 SEX: M ATTEND: Raphael Davila MD ADM AUTHOR: Tanya Davila MD * ALL edits or amendments must be made on the el ectronic/computer document * Subjective Patient reports: No: complaints. Comments: No new neuro issues Objective General VS: Last Documented: Result Date Time Pulse Ox 100 08/03 1158 B/P 114/58 08/03 1158 B/P Mean 77.0 08/03 1158 O2 Delivery Room air 08/03 115 Temp 98.6 08/03 1158 Pulse 55 08/03 115 Resp 19 08/03 1158 O2 Flow Rate 5 07/28 2322 FiO2 21 07/25 0928 PATIENT WEIGHT: Weight (lb): 191 Weight (oz): 9.31 Weight (kg): 86.900 Medications Current Home Medications ALBUTEROL (PROAIR HFA 90 MCG/ACT 8.5 GM) 2 PUFF INH RTQ6H PRN PRN SOB ASPIRIN EC (ECOTRIN) 81 MG PO DAILY CARVEDILOL (COREG) 25 MG PO BID MEALS ACETAMINOPHEN/CODEINE (TYLENOL WITH CODE INE #4 300/60 MG) 1 TAB PO Q6H PRN PRN PAIN ATORVASTATIN (LIPITOR) 20 MG PO BEDTIME LOSARTAN (COZAAR) 100 MG PO DAILY NIFEdipine CC (ADALAT CC) 90 MG PO Q12HR HYDROCHLOROTHIAZIDE (HYDRODIURIL) 25 MG PO DAILY Active Meds + DC'd Last 24 Hrs Hydrocodone Bitart/Acetaminophen 1 TAB Q6H PRN P RN PO Collagenase 1 APPLIC DAILY TOPICAL Aspirin 81 MG DAILY PO Atorvastatin Calcium 40 MG DAILY PO Nifedipine 30 MG Q6HR PO Isosorbide Mononitrate 30 MG BID PO Acetaminophen 650 MG Q4H PRN PRN PO Famotidine 20 MG DAILY PO Labetalol HCl 600 MG Q8HR PO Heparin Sodium (Porcine) 5,000 UNIT Q12HR SUBQ Heparin Sodium (Porcine) 2,000 UNIT DIALYSIS-DOS E BEFORE IV (CKD) Heparin Sodium (Porcine) 5,000 UNIT DIALYSIS-DOS E AFTER MISC Sodium Chloride 1,000 ML ASDIR PRN IV Labetalol HCl 10 MG Q6H PRN PRN IV Dextrose/Water 25 ML ASDIR PRN IV Glucagon 1 MG ASDIR PRN IM Insulin Human Lispro LOW DOSE SCALE ASDIR SUBQ Physical Exam General appearance: awake, no acute distress, co nversational, no respiratory distress, Drowsy this am after getting norco Diagnosis, Assessment Plan Problem List/A P: 1. Hypertensive urgency 2. Metabolic encephalopathy 3. Critical illness myopathy Free Text A P: Assessment 1. Acute encephalopathy - resolved. Multifactori al - metabolic/hypertensive emergency/acute stroke 2. Lower extremity weakness- critical illness my opathy vs GBS 3. Acute ischemic strokes, suspect embolic sourc e, + PFO, b/l lower extremity dopplers negative 4. s/p PEA arrest 06/11/20 5. hypertensive emergency - improved 6. acute respiratory failure, s/p trach 7. type b aortic dissection 8. JENNIFER -pt refused LP for lower extremity weakness -repeat head CT unremarkable (/) Plan -monitor neuro status -per Cardio - PFO closure either next week or as outpatient -aggressive PT/OT -on asa, statin -continue medical management -d/w pt -will follow at 1453 RPT #:[id number] END OF REPORT 2020-08-03 09:03:00-00:00 [facility] Nephrology Progress Note REPORT#:[id number] REPORT STATUS: Signed DATE:08/03/20 TIME: 902 PATIENT: JORGE GOINS UNIT #: [id number] ROOM/BED: [address] : 86 AGE: 34 SEX: M ATTEND: Raphael Davila MD ADM AUTHOR: Ceferino De La Garza MD * ALL edits or amendments must be made on the el ectronic/computer document * Objective Physical Exam ENT: moist mucous membranes Neck: no JVD, no masses or swelling Cardiovascular: normal heart sounds, regular rat e and rhythm Respiratory: aerating well, clear to auscultatio n Abdomen: normal bowel sounds, soft Extremities: no edema Musculoskeletal: decreased ROM 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 Diagnosis, Assessment Plan Free Text A P: JENNIFER hypotension AAA lactic acidosis severe metabolic acidosis- resolved Metabolic alkalosis - resolved Making good urine Mental status has significantly improved cr and k is better at 1640 RPT #:[id number] END OF REPORT 2020-08-02 20:18:00-00:00 [facility] Card[facility] Progress Note REPORT#:[id number] REPORT STATUS: Signed DATE:08/02/20 TIME: 2017 PATIENT: JORGE GOINS UNIT #: [id number] ROOM/BED: [address] : 86 AGE: 34 SEX: M ATTEND: Raphael Davila MD ADM AUTHOR: Giancarlo Phan MD * ALL edits or amendments must be made on the el ectronic/computer document * Subjective Free Text Subj Notes Free Text Subj Notes: Resting no acute complaints at this time. Objective Physical Exam Head/Eyes: atraumatic, clear cornea, EOMI, brooklynn l conjunctiva/sclera, normocephalic, PERRL, PERRLA ENT: normal nose, normal pharynx, decannulated Neck: full range of motion, non-tender, normal thyroid, supple/no meningismus, no bruit/NL carotids, no JVD, no lymphadenopathy , no masses or swelling Cardiovascular: CV assessment: regular rate and rhythm, normal heart sounds Respiratory: on oxygen, clear to auscultation, n o distress Abdomen: non-tender, normal bowel sounds , no distention, no guarding, no mass/ organomegaly, no pulsatile mass, no rebound Upper extremity: UE assessment: normal capillary refill, no timur a Lower extremity: LE assessment: normal capillary refill, no timur a Musculoskeletal: full range of motion, normal in spection 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, oriented X 3, normal speech Skin: dry Lymphatics: axilla normal, inguinal normal, neck normal, no lymphadenopathy Psychiatry: normal judgment/insight, normal mood Diagnosis, Assessment Plan Free Text DxA P Notes Free Text DxA P Notes: 1. Hypertensive urgency/emergency - presented with severely elevated BP requiring 2 IV infusions, subsequently suffered PEA cardiac arrest - BP control improving - cont hydralazine 100mg Q8H, labetalol 600mg Q 8H - nifedipine 30mg QID, patients blood pressure much better controlled - losartan 50mg BID has been started will cont to monitor 2/4 - Patient's blood pressure has been for the better part controlled but he had one episode of blood pressure 160 otherwise no other complaints 2. Cardiac arrest - PEA in etiology, pt became hypothermic and fan bsequently bradycardic 3. Type B aortic dissection s/p EVAR - has residual descending aortic dissection ext ending into iliacs. No evidence of rupture on CTA. Reviewed by vascular surgery - appreciate assitance - optimal BP Control as above 4. Acute on chronic systolic heart failure -Improved significantly 5. Shock - resolved 6. JENNIFER on CKD Patient has not received dialysis in some time 7. Acute hypoxic respiratory failure -Patient has been decannulated from a trach per spective 8. Stroke: - CT head and MRI with evidence of prior CVA - TTE with possible PFO - Close patient's PFO on Monday Electronically Signed by Giancarlo Phan MD on 01/13 at 2019 RPT #:[id number] END OF REPORT 2020-08-02 18:20:00-00:00 [facility] Nephrology Progress Note REPORT#:[id number] REPORT STATUS: Signed DATE:08/02/20 TIME: 1819 PATIENT: JORGE GOINS UNIT #: [id number] ROOM/BED: [address] : 86 AGE: 34 SEX: M ATTEND: Raphael Davila MD ADM AUTHOR: Ceferino De La Garza MD * ALL edits or amendments must be made on the rimidi/computer document * Subjective Comments: events noted Objective General VS/I O: Vital Signs: Date Time Temp Pulse Resp B/P B/P Pulse O2 O2 F low FiO2 Mean Ox Delivery Rate 08/02 1620 36.7 67 18 117/63 81.1 100 Room air 08/02 1152 36.3 64 18 177/91 119.6 100 Room air 08/02 0811 36.8 70 18 143/82 102.6 100 Room air 08/02 0405 36.0 64 17 116/65 81.8 100 08/01 2337 37.0 74 21 120/66 83.8 100 08/01 1957 37.0 62 19 151/77 101.8 100 24 hour I O ending at 0700: 08/02 0700 08/01 1900 Intake Total 1400 Output Total 1400 Balance 0 Intake, Oral 1400 Output, Urine 1400 PATIENT WEIGHT: Weight (lb): 191 Weight (oz): 9.31 Weight (kg): 86.900 Medications Active Meds + DC'd Last 24 Hrs Hydrocodone Bitart/Acetaminophen 1 TAB Q6H PRN P RN PO Collagenase 1 APPLIC DAILY TOPICAL Aspirin 81 MG DAILY PO Atorvastatin Calcium 40 MG DAILY PO Nifedipine 30 MG Q6HR PO Isosorbide Mononitrate 30 MG BID PO Acetaminophen 650 MG Q4H PRN PRN PO Famotidine 20 MG DAILY PO Labetalol HCl 600 MG Q8HR PO Heparin Sodium (Porcine) 5,000 UNIT Q12HR SUBQ Heparin Sodium (Porcine) 2,000 UNIT DIALYSIS-DOS E BEFORE IV (CKD) Heparin Sodium (Porcine) 5,000 UNIT DIALYSIS-DOS E AFTER MISC Sodium Chloride 1,000 ML ASDIR PRN IV Labetalol HCl 10 MG Q6H PRN PRN IV Dextrose/Water 25 ML ASDIR PRN IV Glucagon 1 MG ASDIR PRN IM Insulin Human Lispro LOW DOSE SCALE ASDIR SUBQ Nutrition assessment: The data set between the solid lines has been im ported from the dietitian's assessment. Any exceptions have been noted under Provider comments. BMI Calculated: 26.7 Nutrition related diagnosis: Overweight Nutrition diagnosis details: BMI 25-29.9 Nutrition problem: Swallowing difficulty Nutrition etiology: RESPIRATORY STATUS Nutrition signs and symptoms: PT S/P VDRF, ON TR ACH COLLAR,, MODIFIED TEXTURE PER TRAFFIC ADMINISTRATOR. Nutrition prescription: -RECOMMEND CONTINUE TEJAS L DIET, TEXTURE PER TRAFFIC ADMINISTRATOR. - RECOMMEND ENSURE ENLIVE BID TO HELP MEET PT'S NEEDS RD TO F/U PER FNS PROTOCOL. Dietitian name: Ester Cabrera RD LD Assessment completed: 07/29/20 Provider comments on imported dietitian assessme nt: Physical Exam ENT: moist mucous membranes Neck: no JVD, no masses or swelling Cardiovascular: normal heart sounds, regular rat e and rhythm Respiratory: aerating well, clear to auscultatio n Abdomen: normal bowel sounds, soft Extremities: no edema Musculoskeletal: decreased ROM 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 Diagnosis, Assessment Plan Free Text A P: JENNIFER hypotension AAA lactic acidosis severe metabolic acidosis- resolved Metabolic alkalosis - resolved Making good urine Mental status has significantly improved cr and k is better at 1837 RPT #:[id number] END OF REPORT 2020-08-02 13:44:00-00:[address] [facility] ([facility]) Hospitalist Progress Note REPORT#:[id number] REPORT STATUS: Signed DATE:08/02/20 TIME: 1344 PATIENT: JORGE GOINS UNIT #: [id number] ROOM/BED: [address] : 86 AGE: 34 SEX: M ATTEND: Raphael Davila MD ADM AUTHOR: Raymundo Thomas MD * ALL edits or amendments must be made on the rimidi/computer document * Subjective Chief Complaint: Follow-up of acute CVA Review of Systems Constitutional: Denies: chills, fever. Allergy/Immun: Denies: allergic reaction. Respiratory: Denies: SOB. Cardiovascular: Denies: chest pain. Objective General VS/I O: Vital Signs: Date Time Temp Pulse Resp B/P B/P Pulse O2 O2 F low FiO2 Mean Ox Delivery Rate 08/02 1152 36.3 64 18 177/91 119.6 100 Room ai r 08/02 0811 36.8 70 18 143/82 102.6 100 Room air 08/02 0405 36.0 64 17 116/65 81.8 100 08/01 2337 37.0 74 21 120/66 83.8 100 08/01 1957 37.0 62 19 151/77 101.8 100 08/01 1606 36.9 73 18 159/86 110.2 100 Room air 24 hour I O ending at 0700: 08/02 0700 08/01 1900 Intake Total 1400 Output Total 1400 Balance 0 Intake, Oral 1400 Output, Urine 1400 PATIENT WEIGHT: Weight (lb): 191 Weight (oz): 9.31 Weight (kg): 86.900 Medications: Active Meds + DC'd Last 24 Hrs Hydrocodone Bitart/Acetaminophen 1 TAB Q6H PRN P RN PO Collagenase 1 APPLIC DAILY TOPICAL Aspirin 81 MG DAILY PO Atorvastatin Calcium 40 MG DAILY PO Nifedipine 30 MG Q6HR PO Isosorbide Mononitrate 30 MG BID PO Acetaminophen 650 MG Q4H PRN PRN PO Famotidine 20 MG DAILY PO Labetalol HCl 600 MG Q8HR PO Heparin Sodium (Porcine) 5,000 UNIT Q12HR SUBQ Heparin Sodium (Porcine) 2,000 UNIT DIALYSIS-DOS E BEFORE IV (CKD) Heparin Sodium (Porcine) 5,000 UNIT DIALYSIS-DOS E AFTER MISC Sodium Chloride 1,000 ML ASDIR PRN IV Labetalol HCl 10 MG Q6H PRN PRN IV Dextrose/Water 25 ML ASDIR PRN IV Glucagon 1 MG ASDIR PRN IM Insulin Human Lispro LOW DOSE SCALE ASDIR SUBQ Physical Exam General appearance: alert, awake Head/Eyes: atraumatic Cardiovascular: normal heart sounds, regular rat e rhythm Respiratory: aerating well, clear to auscultatio n Abdomen: non-tender, normal bowel sounds, soft Extremities: no clubbing Results Findings/Data: Laboratory Tests 08/02 Chemistry POC Glucose (74 - 106 MG/DL) 102 93 Diagnosis, Assessment Plan Free Text DxA P Notes Free text DxA P notes: A/P: Patient seen and evaluated bedside. 1. Acute encephalopathy - resolved 2. Lower extremity weakness - critical illness myopathy -Neurology is on board, patient refused LP per n eurology note 3. Acute ischemic strokes, -suspect embolic source + PFO -Cardiology following 4. s/p PEA arrest 06/11/20 5. hypertensive emergency - improved,con tinue hydralazine,labetalol,clonidine, nifedipine,losartan cardio on board 6. acute respiratory failure, s/p trach...pulmon kenan on board 7. Type b aortic dissection 8. JENNIFER - Nephrology following. Kidney functions have im proved. Patient making good urine output. No need for hemodialysis. 9.Stroke....MRI multiple ischemic cva.......mau morejon per neuro 10.systolic CHF ...improving gi ppx: pepcid dvt ppx: heparin at 1346 RPT #:[id number] END OF REPORT 2020-08-01 17:50:00-00:[address] [facility] ([facility]) Cardiology Progress Note REPORT#:[id number] REPORT STATUS: Signed DATE:08/01/20 TIME: 1750 PATIENT: JORGE GOINS UNIT #: [id number] ROOM/BED: [address] : 86 AGE: 34 SEX: M ATTEND: Raphael Davila MD ADM AUTHOR: Giancarlo Phan MD * ALL edits or amendments must be made on the rimidi/computer document * Subjective Free Text Subj Notes Free Text Subj Notes: Patient did well overnight. Denies chest pain, s hortness of breath, palpitations or syncope. Ove rall really no other acute complaints at this time. Objective General VS/I O: 24 hour I O ending at 0700: 06 0700 02/05 1900 Intake Total Output Total 1200 Balance -1200 Number 1 Bowel Movements Output, Urine 1200 Vital Signs: Date Time Temp Pulse Resp B/P B/P Pulse O2 O2 Flow FiO2 Mean Ox Delivery Rate 08/01 1606 36.9 73 18 159/86 110.2 100 Room air 08/01 1108 36.5 66 18 124/65 84.8 100 Room air 08/01 0821 37.7 69 18 104/55 71.0 100 Room air 08/01 0441 37.3 68 16 125/67 86.5 99 / 2356 36.8 73 17 119/61 80.1 100 PATIENT WEIGHT: Weight (lb): 191 Weight (oz): 9.31 Weight (kg): 86.900 Physical Exam Head/Eyes: atraumatic, clear cornea, EOMI, brooklynn l conjunctiva/sclera, normocephalic, PERRL, PERRLA ENT: normal nose, normal pharynx, decannulated Neck: full range of motion, non-tender, normal thyroid, supple/no meningismus, no bruit/NL carotids, no JVD, no lymphadenopathy , no masses or swelling Cardiovascular: CV assessment: regular rate and rhythm, normal heart sounds Respiratory: on oxygen, clear to auscultation, n o distress Abdomen: non-tender, normal bowel sounds , no distention, no guarding, no mass/ organomegaly, no pulsatile mass, no rebound Upper extremity: UE assessment: normal capillary refill, no timur a Lower extremity: LE assessment: normal capillary refill, no timur a Musculoskeletal: full range of motion, normal in spection 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, oriented X 3, normal speech Skin: dry Lymphatics: axilla normal, inguinal normal, neck normal, no lymphadenopathy Psychiatry: normal judgment/insight, normal mood Diagnosis, Assessment Plan Free Text DxA P Notes Free Text DxA P Notes: 1. Hypertensive urgency/emergency - presented with severely elevated BP requiring 2 IV infusions, subsequently suffered PEA cardiac arrest - BP control improving - cont hydralazine 100mg Q8H, labetalol 600mg Q 8H - nifedipine 30mg QID, patients blood pressure much better controlled - losartan 50mg BID has been started will cont to monitor 2/4 - Patient's blood pressure has been for the better part controlled but he had one episode of blood pressure 160 otherwise no other complaints 2. Cardiac arrest - PEA in etiology, pt became hypothermic and fan bsequently bradycardic 3. Type B aortic dissection s/p EVAR - has residual descending aortic dissection ext ending into iliacs. No evidence of rupture on CTA. Reviewed by vascular surgery - appreciate assitance - optimal BP Control as above 4. Acute on chronic systolic heart failure -Improved significantly 5. Shock - resolved 6. JENNIFER on CKD Patient has not received dialysis in some time 7. Acute hypoxic respiratory failure -Patient has been decannulated from a trach per spective 8. Stroke: - CT head and MRI with evidence of prior CVA - TTE with possible PFO - Given patient going through family issues jesse l defer to PFO closure until potentially early next week or as an outpatient Electronically Signed by Giancarlo Phan MD on 12/14 at 1754 RPT #:[id number] END OF REPORT 2020-08-01 15:54:00-00:00 [facility] Hospitalist Progress Note REPORT#:[id number] REPORT STATUS: Signed DATE:08/01/20 TIME: 1554 PATIENT: JORGE GOINS UNIT #: [id number] ROOM/BED: [address] : [birth year] AGE: 34 SEX: M ATTEND: Raphael Davila MD ADM AUTHOR: Raymundo Thomas MD * ALL edits or amendments must be made on the el [employer]/computer document * Subjective Chief Complaint: Follow-up of acute CVA Review of Systems Constitutional: Denies: chills, fever. Allergy/Immun: Denies: allergic reaction. Respiratory: Denies: wheezing. Cardiovascular: Denies: chest pain. Objective General VS/I O: Vital Signs: Date Time Temp Pulse Resp B/P B/P Pulse O2 O2 F low FiO2 Mean Ox Delivery Rate 08/01 1108 36.5 66 18 124/65 84.8 100 Room air 08/01 0821 37.7 69 18 104/55 71.0 100 Room air 08/01 0441 37.3 68 16 125/67 86.5 99 07/31 2356 36.8 73 17 119/61 80.1 100 / 1619 36.9 69 15 156/72 99.7 99 24 hour I O ending at 0700: 08/01 0700 / 1900 Intake Total Output Total 1200 Balance -1200 Number 1 Bowel Movements Output, Urine 1200 PATIENT WEIGHT: Weight (lb): 191 Weight (oz): 9.31 Weight (kg): 86.900 Medications: Active Meds + DC'd Last 24 Hrs Hydrocodone Bitart/Acetaminophen 1 TAB Q6H PRN P RN PO Collagenase 1 APPLIC DAILY TOPICAL Aspirin 81 MG DAILY PO Atorvastatin Calcium 40 MG DAILY PO Nifedipine 30 MG Q6HR PO Isosorbide Mononitrate 30 MG BID PO Acetaminophen 650 MG Q4H PRN PRN PO Famotidine 20 MG DAILY PO Labetalol HCl 600 MG Q8HR PO Heparin Sodium (Porcine) 5,000 UNIT Q12HR SUBQ Heparin Sodium (Porcine) 2,000 UNIT DIALYSIS-DOS E BEFORE IV (CKD) Heparin Sodium (Porcine) 5,000 UNIT DIALYSIS-DOS E AFTER MISC Sodium Chloride 1,000 ML ASDIR PRN IV Labetalol HCl 10 MG Q6H PRN PRN IV Dextrose/Water 25 ML ASDIR PRN IV Glucagon 1 MG ASDIR PRN IM Insulin Human Lispro LOW DOSE SCALE ASDIR SUBQ Physical Exam General appearance: alert, awake Head/Eyes: atraumatic Cardiovascular: normal heart sounds, regular rat e rhythm Respiratory: aerating well, clear to auscultatio n Abdomen: non-tender, normal bowel sounds, soft Extremities: no clubbing Diagnosis, Assessment Plan Free Text DxA P Notes Free text DxA P notes: A/P: Patient seen and evaluated bedside. 1. Acute encephalopathy - resolved 2. Lower extremity weakness - critical illness myopathy -Neurology is on board, patient refused LP per n eurology note 3. Acute ischemic strokes, -suspect embolic source + PFO -Cardiology following 4. s/p PEA arrest 06/11/20 5. hypertensive emergency - improved,con tinue hydralazine,labetalol,clonidine, nifedipine,losartan cardio on board 6. acute respiratory failure, s/p trach...pulmon kenan on board 7. Type b aortic dissection 8. JENNIFER - Nephrology following. Kidney functions have im proved. Patient making good urine output. No need for hemodialysis. 9.Stroke....MRI multiple ischemic cva.......mau gement per neuro 10.systolic CHF ...improving gi ppx: pepcid dvt ppx: heparin at 1555 RPT #:[id number] END OF REPORT 2020-08-01 14:52:00-00:00 [facility] Neurology Progress Note REPORT#:[id number] REPORT STATUS: Signed DATE:08/01/20 TIME: 1452 PATIENT: JORGE GOINS UNIT #: [id number] [address] AGE: 34 SEX: M ATTEND: Raphael Davila MD ADM AUTHOR: Tanya Davila MD * ALL edits or amendments must be made on the el [employer]/computer document * Subjective Patient reports: No: complaints. Comments: No new neuro issues. He says he is feeling well Objective General VS: Last Documented: Result Date Time Pulse Ox 100 08/01 1108 B/P 124/65 08/01 1108 B/P Mean 84.8 08/01 1108 O2 Delivery Room air 08/01 1108 Temp 97.7 08/01 1108 Pulse 66 08/01 1108 Resp 18 08/01 1108 O2 Flow Rate 5 07/28 2322 FiO2 21 07/25 0928 PATIENT WEIGHT: Weight (lb): 191 Weight (oz): 9.31 Weight (kg): 86.900 Medications Current Home Medications ALBUTEROL (PROAIR HFA 90 MCG/ACT 8.5 GM) 2 PUFF INH RTQ6H PRN PRN SOB ASPIRIN EC (ECOTRIN) 81 MG PO DAILY CARVEDILOL (COREG) 25 MG PO BID MEALS ACETAMINOPHEN/CODEINE (TYLENOL WITH CODE INE #4 300/60 MG) 1 TAB PO Q6H PRN PRN PAIN ATORVASTATIN (LIPITOR) 20 MG PO BEDTIME LOSARTAN (COZAAR) 100 MG PO DAILY NIFEdipine CC (ADALAT CC) 90 MG PO Q12HR HYDROCHLOROTHIAZIDE (HYDRODIURIL) 25 MG PO DAILY Active Meds + DC'd Last 24 Hrs Hydrocodone Bitart/Acetaminophen 1 TAB Q6H PRN P RN PO Collagenase 1 APPLIC DAILY TOPICAL Aspirin 81 MG DAILY PO Atorvastatin Calcium 40 MG DAILY PO Nifedipine 30 MG Q6HR PO Isosorbide Mononitrate 30 MG BID PO Acetaminophen 650 MG Q4H PRN PRN PO Famotidine 20 MG DAILY PO Labetalol HCl 600 MG Q8HR PO Heparin Sodium (Porcine) 5,000 UNIT Q12HR SUBQ Heparin Sodium (Porcine) 2,000 UNIT DIALYSIS-DOS E BEFORE IV (CKD) Heparin Sodium (Porcine) 5,000 UNIT DIALYSIS-DOS E AFTER MISC Sodium Chloride 1,000 ML ASDIR PRN IV Labetalol HCl 10 MG Q6H PRN PRN IV Dextrose/Water 25 ML ASDIR PRN IV Glucagon 1 MG ASDIR PRN IM Insulin Human Lispro LOW DOSE SCALE ASDIR SUBQ Physical Exam General appearance: alert, awake, no acu te distress, pleasant, conversational, mental status normal, no respiratory distress, P araplegia Diagnosis, Assessment Plan Problem List/A P: 1. Hypertensive urgency 2. Metabolic encephalopathy 3. Critical illness myopathy Free Text A P: Assessment 1. Acute encephalopathy - resolved. Multifactori al - metabolic/hypertensive emergency/acute stroke 2. Lower extremity weakness- critical illness my opathy vs GBS 3. Acute ischemic strokes, suspect embolic sourc e, + PFO, b/l lower extremity dopplers negative 4. s/p PEA arrest 06/11/20 5. hypertensive emergency - improved 6. acute respiratory failure, s/p trach 7. type b aortic dissection 8. JENNIFER -pt refused LP for lower extremity weakness -repeat head CT unremarkable (2/3) Plan -monitor neuro status -per Cardio - PFO closure either next week or as outpatient -aggressive PT/OT -on asa, statin -continue medical management -d/w pt -will follow at 1454 RPT #:[id number] END OF REPORT 2020-08-01 09:49:00-00:00 [facility] Nephrology Progress Note REPORT#:[id number] REPORT STATUS: Signed DATE:08/01/20 TIME: 948 PATIENT: JORGE GOINS UNIT #: [id number] ROOM/BED: [address] : [birth year] AGE: 34 SEX: M ATTEND: Raphael Davila MD ADM AUTHOR: Ceferino De La Garza MD * ALL edits or amendments must be made on the [employer]/computer document * Subjective Comments: events noted Objective Physical Exam ENT: moist mucous membranes Neck: no JVD, no masses or swelling Cardiovascular: normal heart sounds, regular rat e and rhythm Respiratory: aerating well, clear to auscultatio n Abdomen: normal bowel sounds, soft Extremities: no edema Musculoskeletal: decreased ROM 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 Diagnosis, Assessment Plan Free Text A P: JENNIFER hypotension AAA lactic acidosis severe metabolic acidosis- resolved Metabolic alkalosis - resolved Making good urine Mental status has significantly improved cr and k is better at 1835 RPT #:[id number] END OF REPORT 2020-07-31 21:25[facility]00-00:00 [facility] RE[facility]#:[id number] REPORT STATUS: Signed DATE:07/31/20 TIME: 2124 PATIENT: JORGE GOINS UNIT #: [id number] [address] AGE: 34 SEX: M ATTEND: Raphael Davila MD ADM AUTHOR: Jojo York MD * ALL edits or amendments must be made on the [employer]/computer document * Objective General VS/I O: Vital Signs: Date Time Temp Pulse Resp B/P B/P Pulse O2 O2 F low FiO2 Mean Ox Delivery Rate 07/31 1619 98.4 69 15 156/72 99.7 99 07/31 1402 75 117/62 80.3 07/31 1206 98.4 68 15 128/66 86.5 98 07/31 0800 76 14 130/65 86.6 99 07/31 0649 98.2 74 17 168/85 0.0 97 Room air 07/30 2337 98.2 67 19 143/73 96.1 98 Room air 07/30 2337 98.2 67 19 143/73 96.1 98 Room air 07/30 2337 98.2 67 19 143/73 96.1 98 Room air 24 hour I O ending at 0700: 07/31 0700 07/30 1900 Intake Total 480 Output Total 500 Balance -20 Intake, Oral 480 Output, Urine 500 PATIENT WEIGHT: Weight (lb): 191 Weight (oz): 9.31 Weight (kg): 86.900 Medications Active Meds + DC'd Last 24 Hrs Hydrocodone Bitart/Acetaminophen 1 TAB Q6H PRN P RN PO Collagenase 1 APPLIC DAILY TOPICAL Aspirin 81 MG DAILY PO Atorvastatin Calcium 40 MG DAILY PO Nifedipine 30 MG Q6HR PO Isosorbide Mononitrate 30 MG BID PO Acetaminophen 650 MG Q4H PRN PRN PO Famotidine 20 MG DAILY PO Labetalol HCl 600 MG Q8HR PO Heparin Sodium (Porcine) 5,000 UNIT Q12HR SUBQ Heparin Sodium (Porcine) 2,000 UNIT DIALYSIS-DOS E BEFORE IV (CKD) Heparin Sodium (Porcine) 5,000 UNIT DIALYSIS-DOS E AFTER MISC Sodium Chloride 1,000 ML ASDIR PRN IV Labetalol HCl 10 MG Q6H PRN PRN IV Dextrose/Water 25 ML ASDIR PRN IV Glucagon 1 MG ASDIR PRN IM Insulin Human Lispro LOW DOSE SCALE ASDIR SUBQ Physical Exam ENT: moist mucous membranes Neck: no JVD, no masses or swelling Cardiovascular: normal heart sounds, regular rat e and rhythm Respiratory: aerating well, clear to auscultatio n Abdomen: normal bowel sounds, soft Extremities: no edema Musculoskeletal: decreased ROM 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 Results Findings/Data: Laboratory Tests 07/31 1239 Chemistry Sodium (137 - 145 mmol/L) 136 L Potassium (3.4 - 5.0 mmol/L) 4.8 Chloride (98 - 107 mmol/L) 104 Carbon Dioxide (22 - 30 mmol/L) 23 BUN (9 - 20 mg/dL) 38 H Creatinine (0.7 - 1.3 mg/dL) 1.8 H Glomerular Filtr Rate (>60) 56 L Glucose (74 - 106 mg/dL) 92 Calcium (8.4 - 10.2 mg/dL) 9.1 Total Bilirubin (0.2 - 1.3 mg/dL) 0.7 Conjugated Bilirubin (0 - 0.3 mg/dL) 0 Unconjugated Bilirubin (0 - 1.1 mg/dL) 0.3 AST (15 - 46 U/L) 48 H ALT (0 - 34 U/L) 45 H Total Alk Phosphatase (38 - 126 U/L) 95 Total Protein (6.3 - 8.2 g/dL) 6.6 Albumin (3.5 - 5.0 g/dL) 3.3 L Laboratory Tests 07/31 1239 Hematology WBC (5.0 - 12.0 x10 3/uL) 7.8 RBC (4.70 - 6.10 x10 6/uL) 2.60 L Hgb (14.0 - 18.0 g/dL) 7.7 L Hct (37.0 - 49.0 %) 24.6 L MCV (80 - 94 fL) 95 H MCH (27 - 31 pg) 29.6 MCHC (33 - 37 g/dL) 31.3 L RDW (11.5 - 15.5 %) 17.5 H Plt Count (130 - 400 x10 3/uL) 195 MPV (9.4 - 16.4 fL) 10.3 Neut % (Auto) (43 - 65 %) 79.3 H Lymph % (Auto) (20.5 - 45.5 %) 8.8 L Citrus % (Auto) (5.5 - 11.7 %) 6.8 Eos % (Auto) (0.9 - 2.9 %) 4.3 H Baso % (Auto) (0.2 - 1.0 %) 0.4 Neut # (Auto) (2.2 - 4.8 x10 3/uL) 6.16 H Lymph # (Auto) (1.3 - 2.9 x10 3/uL) 0.68 L Citrus # (Auto) (0.3 - 0.8 x10 3/uL) 0.53 Eos # (Auto) (0.0 - 0.2 x10 3/uL) 0.33 H Baso # (Auto) (0.0 - 0.1 x10 3/uL) 0.03 Immature Gran % (0.0 - 2.0 %) 0.4 Nucleated RBC % (0 - 1.0 %) 0.0 Diagnosis, Assessment Plan Free Text A P: JENNIFER hypotension AAA lactic acidosis severe metabolic acidosis- resolved Metabolic alkalosis - resolved Making good urine Mental status has significantly improved cr and k is better at 2125 RPT #:[id number] END OF REPORT 2020-07-31 18:27:00-00:00 [facility] Hospitalist Progress Note REPORT#:[id number] REPORT STATUS: Signed DATE:07/31/20 TIME: 1826 PATIENT: JORGE GOINS UNIT #: [id number] ROOM/BED: [address] : [birth year] AGE: 34 SEX: M ATTEND: Raphael Davila MD ADM AUTHOR: Raymundo Thomas MD * ALL edits or amendments must be made on the el [employer]/computer document * Subjective Chief Complaint: Follow-up of acute CVA Review of Systems Constitutional: Denies: chills, fever. Allergy/Immun: Denies: allergic reaction. Respiratory: Denies: SOB. Cardiovascular: Denies: chest pain. Objective General VS/I O: Vital Signs: Date Time Temp Pulse Resp B/P B/P Pulse O2 O2 F low FiO2 Mean Ox Delivery Rate 07/31 1619 36.9 69 15 156/72 99.7 99 07/31 1402 75 117/62 80.3 / 1206 36.9 68 15 128/66 86.5 98 02/ 0800 76 14 130/65 86.6 99 07/31 0649 36.8 74 17 168/85 0.0 97 Room air 07/30 2337 36.8 67 19 143/73 96.1 98 Room air / 2337 36.8 67 19 143/73 96.1 98 Room air / 2337 36.8 67 19 143/73 96.1 98 Room air / 2122 36.4 67 19 139/64 88.9 99 Room air / 2122 36.4 67 19 139/64 88.9 99 Room air 07/30 2122 36.4 67 19 139/64 88.9 99 Room air 24 hour I O ending at 0700: 07/31 0700 07/30 1900 Intake Total 480 Output Total 500 Balance -20 Intake, Oral 480 Output, Urine 500 PATIENT WEIGHT: Weight (lb): 191 Weight (oz): 9.31 Weight (kg): 86.900 Medications: Active Meds + DC'd Last 24 Hrs Hydrocodone Bitart/Acetaminophen 1 TAB Q6H PRN P RN PO Collagenase 1 APPLIC DAILY TOPICAL Aspirin 81 MG DAILY PO Atorvastatin Calcium 40 MG DAILY PO Nifedipine 30 MG Q6HR PO Isosorbide Mononitrate 30 MG BID PO Acetaminophen 650 MG Q4H PRN PRN PO Famotidine 20 MG DAILY PO Labetalol HCl 600 MG Q8HR PO Heparin Sodium (Porcine) 5,000 UNIT Q12HR SUBQ Heparin Sodium (Porcine) 2,000 UNIT DIALYSIS-DOS E BEFORE IV (CKD) Heparin Sodium (Porcine) 5,000 UNIT DIALYSIS-DOS E AFTER MISC Sodium Chloride 1,000 ML ASDIR PRN IV Labetalol HCl 10 MG Q6H PRN PRN IV Dextrose/Water 25 ML ASDIR PRN IV Glucagon 1 MG ASDIR PRN IM Insulin Human Lispro LOW DOSE SCALE ASDIR SUBQ Physical Exam General appearance: alert, awake, oriented Head/Eyes: atraumatic Cardiovascular: normal heart sounds, regular rat e rhythm Respiratory: aerating well, clear to auscultatio n Abdomen: non-tender, normal bowel sounds, soft Extremities: no clubbing Results Findings/Data: Laboratory Tests 07/31 07/30 1239 2121 Chemistry Sodium (137 - 145 mmol/L) 136 L Potassium (3.4 - 5.0 mmol/L) 4.8 Chloride (98 - 107 mmol/L) 104 Carbon Dioxide (22 - 30 mmol/L) 23 BUN (9 - 20 mg/dL) 38 H Creatinine (0.7 - 1.3 mg/dL) 1.8 H Glomerular Filtr Rate (>60) 56 L Glucose (74 - 106 mg/dL) 92 POC Glucose (74 - 106 MG/DL) 106 Calcium (8.4 - 10.2 mg/dL) 9.1 Total Bilirubin (0.2 - 1.3 mg/dL) 0.7 Conjugated Bilirubin (0 - 0.3 mg/dL) 0 Unconjugated Bilirubin (0 - 1.1 mg/dL) 0.3 AST (15 - 46 U/L) 48 H ALT (0 - 34 U/L) 45 H Total Alk Phosphatase (38 - 126 U/L) 95 Total Protein (6.3 - 8.2 g/dL) 6.6 Albumin (3.5 - 5.0 g/dL) 3.3 L Laboratory Tests 07/31 1239 Hematology WBC (5.0 - 12.0 x10 3/uL) 7.8 RBC (4.70 - 6.10 x10 6/uL) 2.60 L Hgb (14.0 - 18.0 g/dL) 7.7 L Hct (37.0 - 49.0 %) 24.6 L MCV (80 - 94 fL) 95 H MCH (27 - 31 pg) 29.6 MCHC (33 - 37 g/dL) 31.3 L RDW (11.5 - 15.5 %) 17.5 H Plt Count (130 - 400 x10 3/uL) 195 MPV (9.4 - 16.4 fL) 10.3 Neut % (Auto) (43 - 65 %) 79.3 H Lymph % (Auto) (20.5 - 45.5 %) 8.8 L Citrus % (Auto) (5.5 - 11.7 %) 6.8 Eos % (Auto) (0.9 - 2.9 %) 4.3 H Baso % (Auto) (0.2 - 1.0 %) 0.4 Neut # (Auto) (2.2 - 4.8 x10 3/uL) 6.16 H Lymph # (Auto) (1.3 - 2.9 x10 3/uL) 0.68 L Citrus # (Auto) (0.3 - 0.8 x10 3/uL) 0.53 Eos # (Auto) (0.0 - 0.2 x10 3/uL) 0.33 H Baso # (Auto) (0.0 - 0.1 x10 3/uL) 0.03 Immature Gran % (0.0 - 2.0 %) 0.4 Nucleated RBC % (0 - 1.0 %) 0.0 Diagnosis, Assessment Plan Free Text DxA P Notes Free text DxA P notes: A/P: Patient seen and evaluated bedside. Patient had rough last night, patient states his mom yesterday. 1. Acute encephalopathy - resolved 2. Lower extremity weakness - critical illness myopathy -Neurology is on board, patient refused LP per n eurology note 3. Acute ischemic strokes, -suspect embolic source + PFO -Cardiology following 4. s/p PEA arrest 06/11/20 5. hypertensive emergency - improved,con tinue hydralazine,labetalol,clonidine, nifedipine,losartan cardio on board 6. acute respiratory failure, s/p trach...pulmon kenan on board 7. Type b aortic dissection 8. JENNIFER - Nephrology following. Kidney functions have im proved. Patient making good urine output. No need for hemodialysis. 9.Stroke....MRI multiple ischemic cva.......mau gement per neuro 10.systolic CHF ...improving gi ppx: pepcid dvt ppx: heparin at 1830 RPT #:[id number] END OF REPORT 2020-07-31 17:41:00-00:[address] [facility] ([facility]) Cardiology Progress Note REPORT#:[id number] REPORT STATUS: Signed DATE:07/31/20 TIME: 1740 PATIENT: JORGE GOINS UNIT #: [id number] ROOM/BED: [address] : [birth year] AGE: 34 SEX: M ATTEND: Raphael Davila MD ADM AUTHOR: Giancarlo Phan MD * ALL edits or amendments must be made on the el [employer]/computer document * Subjective Free Text Subj Notes Free Text Subj Notes: Patient resting work with physical thera py prep fairly diligently otherwise no other acute complaints at this time. Objective General VS/I O: 24 hour I O ending at 0700: 07/31 0700 07/30 1900 Intake Total 480 Output Total 500 Balance -20 Intake, Oral 480 Output, Urine 500 Vital Signs: Date Time Temp Pulse Resp B/P B/P Pulse O2 O2 F low FiO2 Mean Ox Delivery Rate 07/31 1619 36.9 69 15 156/72 99.7 99 07/31 1402 75 117/62 80.3 07/31 1206 36.9 68 15 128/66 86.5 98 /05 0800 76 14 130/65 86.6 99 / 0649 36.8 74 17 168/85 0.0 97 Room air / 2337 36.8 67 19 143/73 96.1 98 Room air / 2337 36.8 67 19 143/73 96.1 98 Room air / 2337 36.8 67 19 143/73 96.1 98 Room air / 2122 36.4 67 19 139/64 88.9 99 Room air /2121 36.4 67 19 139/64 88.9 99 Room air / 2122 36.4 67 19 139/64 88.9 99 Room air PATIENT WEIGHT: Weight (lb): 191 Weight (oz): 9.31 Weight (kg): 86.900 Physical Exam Head/Eyes: atraumatic, clear cornea, EOMI, brooklynn l conjunctiva/sclera, normocephalic, PERRL, PERRLA ENT: normal nose, normal pharynx, decannulated Neck: full range of motion, non-tender, normal thyroid, supple/no meningismus, no bruit/NL carotids, no JVD, no lymphadenopathy , no masses or swelling Cardiovascular: CV assessment: regular rate and rhythm, normal heart sounds Respiratory: on oxygen, clear to auscultation, n o distress Abdomen: non-tender, normal bowel sounds , no distention, no guarding, no mass/ organomegaly, no pulsatile mass, no rebound Upper extremity: UE assessment: normal capillary refill, no timur a Lower extremity: LE assessment: normal capillary refill, no timur a Musculoskeletal: full range of motion, normal in spection 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, oriented X 3, normal speech Skin: dry Lymphatics: axilla normal, inguinal normal, neck normal, no lymphadenopathy Psychiatry: normal judgment/insight, normal mood Diagnosis, Assessment Plan Free Text DxA P Notes Free Text DxA P Notes: 1. Hypertensive urgency/emergency - presented with severely elevated BP requiring 2 IV infusions, subsequently suffered PEA cardiac arrest - BP control improving - cont hydralazine 100mg Q8H, labetalol 600mg Q8H - nifedipine 30mg QID, patients blood pressure much better controlled - losartan 50mg BID has been started will cont to monitor 2/4 - Patient's blood pressure has been for the better part controlled but he had one episode of blood pressure 160 otherwise no other complaints 2. Cardiac arrest - PEA in etiology, pt became hypothermic and fan bsequently bradycardic 3. Type B aortic dissection s/p EVAR - has residual descending aortic dissection ext ending into iliacs. No evidence of rupture on CTA. Reviewed by vascular surger y - appreciate assitance - optimal BP Control as above 4. Acute on chronic systolic heart failure -Improved significantly 5. Shock - resolved 6. JENNIFER on CKD -On dialysis, per nephrology - Has elevated potassium 6.1, of note he also h as somewhat of an anemia hemoglobin steadily fallen 7. Acute hypoxic respiratory failure - now has tracheostomy- per critical care team 8. Stroke: - CT head and MRI with evidence of prior CVA - TTE with possible PFO - Given patient going through family issues jesse l defer to PFO closure until potentially early next week or as an outpatient Electronically Signed by Giancarlo Phan MD on 11/13 at 1745 RPT #:[id number] END OF REPORT 2020-07-31 09:06:00-00:[address] [facility] ([facility]) Neurology Progress Note REPORT#:[id number] REPORT STATUS: Signed DATE:07/31/20 TIME: 905 PATIENT: JORGE GOINS UNIT #: [id number] ROOM/BED: [address] : 87 AGE: 34 SEX: M ATTEND: Raphael Davila MD ADM AUTHOR: Seda Vega NP * ALL edits or amendments must be made on the [employer] document * Subjective Chief Complaint: no acute neuro events, denie d discomfort, stated BLE weakness is a little better Objective General VS: Last Documented: Result Date Time Pulse Ox 99 07/31 0800 B/P 130/65 07/31 0800 B/P Mean 86.6 07/31 0800 Pulse 76 02/ 0800 Resp 14 07/31 0800 O2 Delivery Room air 07/31 0649 Temp 98.2 07/31 0649 O2 Flow Rate 5 07/28 2322 FiO2 21 07/25 0928 PATIENT WEIGHT: Weight (lb): 191 Weight (oz): 9.31 Weight (kg): 86.900 Medications Current Home Medications ALBUTEROL (PROAIR HFA 90 MCG/ACT 8.5 GM) 2 PUFF INH RTQ6H PRN PRN SOB ASPIRIN EC (ECOTRIN) 81 MG PO DAILY CARVEDILOL (COREG) 25 MG PO BID MEALS ACETAMINOPHEN/CODEINE (TYLENOL WITH CODE INE #4 300/60 MG) 1 TAB PO Q6H PRN PRN PAIN ATORVASTATIN (LIPITOR) 20 MG PO BEDTIME LOSARTAN (COZAAR) 100 MG PO DAILY NIFEdipine CC (ADALAT CC) 90 MG PO Q12HR HYDROCHLOROTHIAZIDE (HYDRODIURIL) 25 MG PO DAILY Active Meds + DC'd Last 24 Hrs Sodium Polystyrene Sulfonate 30 GM ONCE ONE PO ( DC) Hydrocodone Bitart/Acetaminophen 1 TAB Q6H PRN P RN PO Collagenase 1 APPLIC DAILY TOPICAL Aspirin 81 MG DAILY PO Atorvastatin Calcium 40 MG DAILY PO Nifedipine 30 MG Q6HR PO Isosorbide Mononitrate 30 MG BID PO Acetaminophen 650 MG Q4H PRN PRN PO Famotidine 20 MG DAILY PO Labetalol HCl 600 MG Q8HR PO Heparin Sodium (Porcine) 5,000 UNIT Q12HR SUBQ Heparin Sodium (Porcine) 2,000 UNIT DIALYSIS-DOS E BEFORE IV (CKD) Heparin Sodium (Porcine) 5,000 UNIT DIALYSIS-DOS E AFTER MISC Sodium Chloride 1,000 ML ASDIR PRN IV Labetalol HCl 10 MG Q6H PRN PRN IV Dextrose/Water 25 ML ASDIR PRN IV Glucagon 1 MG ASDIR PRN IM Insulin Human Lispro LOW DOSE SCALE ASDIR SUBQ Physical Exam General appearance: alert, awake Results Findings/Data: Laboratory Tests 07/30 2120 Chemistry POC Glucose (74 - 106 MG/DL) 106 Diagnosis, Assessment Plan Problem List/A P: 1. Hypertensive urgency 2. Metabolic encephalopathy 3. Critical illness myopathy Free Text A P: Assessment 1. Acute encephalopathy - improving multifactori al - metabolic/hypertensive emergency/acute stroke 2. Lower extremity weakness- critical illness my opathy vs GBS 3. Acute ischemic strokes, suspect embolic sourc e, + PFO, b/l lower extremity dopplers negative 4. s/p PEA arrest 06/11/20 5. hypertensive emergency - improved 6. acute respiratory failure, s/p trach 7. type b aortic dissection 8. JENNIFER -pt refused LP for lower extremity weakness -repeat head CT unremarkable (07/29) Plan -monitor neuro status -per Cardio - PFO closure either next week or as outpatient -aggressive PT/OT -on asa, statin -continue medical management -d/w pt, Dr Parson -will follow Electronically Signed by Seda Vega NP on 11/13 at 1200 RPT #:[id number] END OF REPORT 2020-07-31 09:06:00-00:00 [facility] Neurology Progress Note REPORT#:[id number] REPORT STATUS: Signed DATE:07/31/20 TIME: 905 PATIENT: JORGE GOINS UNIT #: [id number] ROOM/BED: [address] : 86 AGE: 34 SEX: M ATTEND: Raphael Davila MD ADM AUTHOR: Seda Vega BRAZING MACHINE TENDER * ALL edits or amendments must be made on the el [employer]/computer document * Seda Vega 07/31/20 0906: Subjective Chief Complaint: no acute neuro events, benson robins discomfort, stated BLE weakness is a little better Objective General VS: Last Documented: Result Date Time Pulse Ox 99 07/31 0800 B/P 130/65 07/31 0800 B/P Mean 86.6 07/31 0800 Pulse 76 07/31 0800 Resp 14 07/31 08 O2 Delivery Room air 07/31 648 Temp 98.2 07/31 0549 O2 Flow Rate 5 07/28 2322 FiO2 21 07/25 0928 PATIENT WEIGHT: Weight (lb): 191 Weight (oz): 9.31 Weight (kg): 86.900 Medications Current Home Medications ALBUTEROL (PROAIR HFA 90 MCG/ACT 8.5 GM) 2 PUFF INH RTQ6H PRN PRN SOB ASPIRIN EC (ECOTRIN) 81 MG PO DAILY CARVEDILOL (COREG) 25 MG PO BID MEALS ACETAMINOPHEN/CODEINE (TYLENOL WITH CODE INE #4 300/60 MG) 1 TAB PO Q6H PRN PRN PAIN ATORVASTATIN (LIPITOR) 20 MG PO BEDTIME LOSARTAN (COZAAR) 100 MG PO DAILY NIFEdipine CC (ADALAT CC) 90 MG PO Q12HR HYDROCHLOROTHIAZIDE (HYDRODIURIL) 25 MG PO DAILY Active Meds + DC'd Last 24 Hrs Sodium Polystyrene Sulfonate 30 GM ONCE ONE PO ( DC) Hydrocodone Bitart/Acetaminophen 1 TAB Q6H PRN P RN PO Collagenase 1 APPLIC DAILY TOPICAL Aspirin 81 MG DAILY PO Atorvastatin Calcium 40 MG DAILY PO Nifedipine 30 MG Q6HR PO Isosorbide Mononitrate 30 MG BID PO Acetaminophen 650 MG Q4H PRN PRN PO Famotidine 20 MG DAILY PO Labetalol HCl 600 MG Q8HR PO Heparin Sodium (Porcine) 5,000 UNIT Q12HR SUBQ Heparin Sodium (Porcine) 2,000 UNIT DIALYSIS-DOS E BEFORE IV (CKD) Heparin Sodium (Porcine) 5,000 UNIT DIALYSIS-DOS E AFTER MISC Sodium Chloride 1,000 ML ASDIR PRN IV Labetalol HCl 10 MG Q6H PRN PRN IV Dextrose/Water 25 ML ASDIR PRN IV Glucagon 1 MG ASDIR PRN IM Insulin Human Lispro LOW DOSE SCALE ASDIR SUBQ Physical Exam General appearance: alert, awake Results Findings/Data: Laboratory Tests 07/30 2120 Chemistry POC Glucose (74 - 106 MG/DL) 106 Diagnosis, Assessment Plan Problem List/A P: 1. Hypertensive urgency 2. Metabolic encephalopathy 3. Critical illness myopathy Free Text A P: Assessment 1. Acute encephalopathy - improving multifactori al - metabolic/hypertensive emergency/acute stroke 2. Lower extremity weakness- critical illness my opathy vs GBS 3. Acute ischemic strokes, suspect embolic sourc e, + PFO, b/l lower extremity dopplers negative 4. s/p PEA arrest 06/11/20 5. hypertensive emergency - improved 6. acute respiratory failure, s/p trach 7. type b aortic dissection 8. JENNIFER -pt refused LP for lower extremity weakness -repeat head CT unremarkable (07/29) Plan -monitor neuro status -per Cardio - PFO closure either next week or as outpatient -aggressive PT/OT -on asa, statin -continue medical management -d/w pt, Dr Parson -will follow Jessica Parson 08/01/20 0411: Attestations Physician Attestation Agree w/findings plan: EMR reviewed, discussed with BRAZING MACHINE TENDER on 1, agree with the findings and plan as documented by Seda Vega NP Electronically Signed by Seda Vega NP on 11/13 at 1200 Electronically Signed by Jessica Parson MD on at 0411 RPT #:[id number] END OF REPORT 2020-07-30 20:42:00-00:[address] [facility] ([facility]) Nephrology Progress Note REPORT#:[id number] REPORT STATUS: Signed DATE:07/30/20 TIME: 2041 PATIENT: JORGE GOINS UNIT #: [id number] [place] [facility] [place] AGE: 34 SEX: M ATTEND: Raphael Davila MD ADM AUTHOR: Jojo York MD * ALL edits or amendments must be made on the [employer]/computer document * Subjective Comments: events noted s/p decannulation Objective General VS/I O: Vital Signs: Date Time Temp Pulse Resp B/P B/P Pulse O2 O2 F low FiO2 Mean Ox Delivery Rate 07/30 1614 98.1 66 20 124/71 88.5 99 02/ 1400 99 02 1300 68 144/72 96 99 / 1206 98.4 74 18 162/73 102.5 100 Room air 07/30 1120 98 / 0800 69 136/76 96 02/ 0352 98.6 69 20 103/55 71.0 96 07/30 0041 97.3 70 19 130/67 88.1 98 02/ 2310 Tracheostomy collar 24 hour I O ending at 0700: 07/30 0700 07/29 1900 Intake Total 480 Output Total 750 Balance -270 Intake, Oral 480 Output, Urine 750 PATIENT WEIGHT: Weight (lb): 191 Weight (oz): 9.31 Weight (kg): 86.900 Medications Active Meds + DC'd Last 24 Hrs Sodium Polystyrene Sulfonate 30 GM ONCE ONE PO ( DC) Hydrocodone Bitart/Acetaminophen 1 TAB Q6H PRN P RN PO Collagenase 1 APPLIC DAILY TOPICAL Aspirin 81 MG DAILY PO Atorvastatin Calcium 40 MG DAILY PO Nifedipine 30 MG Q6HR PO Isosorbide Mononitrate 30 MG BID PO Acetaminophen 650 MG Q4H PRN PRN PO Famotidine 20 MG DAILY PO Labetalol HCl 600 MG Q8HR PO Heparin Sodium (Porcine) 5,000 UNIT Q12HR SUBQ Heparin Sodium (Porcine) 2,000 UNIT DIALYSIS-DOS E BEFORE IV (CKD) Heparin Sodium (Porcine) 5,000 UNIT DIALYSIS-DOS E AFTER MISC Sodium Chloride 1,000 ML ASDIR PRN IV Labetalol HCl 10 MG Q6H PRN PRN IV Dextrose/Water 25 ML ASDIR PRN IV Glucagon 1 MG ASDIR PRN IM Insulin Human Lispro LOW DOSE SCALE ASDIR SUBQ Physical Exam General appearance: no acute distress ENT: moist mucous membranes Neck: no JVD, no masses or swelling Cardiovascular: normal heart sounds, regular rat e and rhythm Respiratory: aerating well, clear to auscultatio n Abdomen: normal bowel sounds, soft Extremities: no edema Musculoskeletal: decreased ROM 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 Results Findings/Data: Laboratory Tests 07/30 07/30 0957 0026 Chemistry Sodium (137 - 145 mmol/L) 135 L Potassium (3.4 - 5.0 mmol/L) 6.1 H 5.7 H Chloride (98 - 107 mmol/L) 104 Carbon Dioxide (22 - 30 mmol/L) 22 BUN (9 - 20 mg/dL) 41 H Creatinine (0.7 - 1.3 mg/dL) 2.1 H Glomerular Filtr Rate (>60) 47 L Glucose (74 - 106 mg/dL) 125 H Calcium (8.4 - 10.2 mg/dL) 8.9 Total Bilirubin (0.2 - 1.3 mg/dL) 0.7 Conjugated Bilirubin (0 - 0.3 mg/dL) 0 Unconjugated Bilirubin (0 - 1.1 mg/dL) 0.4 AST (15 - 46 U/L) 31 ALT (0 - 34 U/L) 32 Total Alk Phosphatase (38 - 126 U/L) 86 Total Protein (6.3 - 8.2 g/dL) 6.2 L Albumin (3.5 - 5.0 g/dL) 3.2 L Laboratory Tests 07/30 0957 Hematology WBC (5.0 - 12.0 x10 3/uL) 8.4 RBC (4.70 - 6.10 x10 6/uL) 2.58 L Hgb (14.0 - 18.0 g/dL) 7.4 L Hct (37.0 - 49.0 %) 24.7 L MCV (80 - 94 fL) 96 H MCH (27 - 31 pg) 28.7 MCHC (33 - 37 g/dL) 30.0 L RDW (11.5 - 15.5 %) 17.2 H Plt Count (130 - 400 x10 3/uL) 209 MPV (9.4 - 16.4 fL) 10.3 Neut % (Auto) (43 - 65 %) 80.8 H Lymph % (Auto) (20.5 - 45.5 %) 9.2 L Citrus % (Auto) (5.5 - 11.7 %) 6.0 Eos % (Auto) (0.9 - 2.9 %) 2.9 Baso % (Auto) (0.2 - 1.0 %) 0.6 Neut # (Auto) (2.2 - 4.8 x10 3/uL) 6.77 H Lymph # (Auto) (1.3 - 2.9 x10 3/uL) 0.77 L Citrus # (Auto) (0.3 - 0.8 x10 3/uL) 0.50 Eos # (Auto) (0.0 - 0.2 x10 3/uL) 0.24 H Baso # (Auto) (0.0 - 0.1 x10 3/uL) 0.05 Immature Gran % (0.0 - 2.0 %) 0.5 Nucleated RBC % (0 - 1.0 %) 0.0 Diagnosis, Assessment Plan Free Text A P: JENNIFER hypotension AAA lactic acidosis severe metabolic acidosis- resolved Metabolic alkalosis - resolved Making good urine Mental status has significantly improved will give beryl am labs at 2043 RPT #:[id number] END OF REPORT 2020-07-30 19:09:00-00:00 [facility] Cardiology Progress Note REPORT#:[id number] REPORT STATUS: Signed DATE:07/30/20 TIME: 1908 PATIENT: JORGE GOINS UNIT #: [id number] ROOM/BED: [address] : 86 AGE: 34 SEX: M ATTEND: Raphael Davila MD ADM AUTHOR: Giancarlo Phan MD * ALL edits or amendments must be made on the [employer]/computer document * Subjective Free Text Subj Notes Free Text Subj Notes: Patient had a very rough night last night. It ap peared that patient's mother . He denies any chest pain shortness of breath he does ultimately feel sad otherwise really no other acute complaints at is time. Objective General VS/I O: 24 hour I O ending at 0700: 07/30 0700 07/29 1900 Intake Total 480 Output Total 750 Balance -270 Intake, Oral 480 Output, Urine 750 Vital Signs: Date Time Temp Pulse Resp B/P B/P Pulse O2 O2 Fl ow FiO2 Mean Ox Delivery Rate 07/30 1614 36.7 66 20 124/71 88.5 99 02/04 1400 99 02/04 1300 68 144/72 96 99 / 1206 36.9 74 18 162/73 102.5 100 Room air 07/30 1120 98 02/ 0800 69 136/76 96 / 0352 37.0 69 20 103/55 71.0 96 02/ 0041 36.3 70 19 130/67 88.1 98 07/29 2310 Tracheostomy collar 07/29 1941 37.0 68 20 114/58 76.8 96 PATIENT WEIGHT: Weight (lb): 191 Weight (oz): 9.31 Weight (kg): 86.900 Physical Exam Head/Eyes: atraumatic, clear cornea, EOMI, brooklynn l conjunctiva/sclera, normocephalic, PERRL, PERRLA ENT: normal nose, normal pharynx, decannulated Neck: full range of motion, non-tender, normal thyroid, supple/no meningismus, no bruit/NL carotids, no JVD, no lymphadenopathy , no masses or swelling Cardiovascular: CV assessment: regular rate and rhythm, normal heart sounds Respiratory: on oxygen, clear to auscultation, n o distress Abdomen: non-tender, normal bowel sounds , no distention, no guarding, no mass/ organomegaly, no pulsatile mass, no rebound Upper extremity: UE assessment: normal capillary refill, no timur a Lower extremity: LE assessment: normal capillary refill, no timur a Musculoskeletal: full range of motion, normal in spection 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, oriented X 3, normal speech Skin: dry Lymphatics: axilla normal, inguinal normal, neck normal, no lymphadenopathy Psychiatry: normal judgment/insight, normal mood Diagnosis, Assessment Plan Free Text DxA P Notes Free Text DxA P Notes: 1. Hypertensive urgency/emergency - presented with severely elevated BP requiring 2 IV infusions, subsequently suffered PEA cardiac arrest - BP control improving - cont hydralazine 100mg Q8H, labetalol 600mg Q 8H - nifedipine 30mg QID, patients blood pressure much better controlled - losartan 50mg BID has been started will cont to monitor 2/4 - Patient's blood pressure has been for the better part controlled but he had one episode of blood pressure 160 otherwise no other complaints 2. Cardiac arrest - PEA in etiology, pt became hypothermic and fan bsequently bradycardic 3. Type B aortic dissection s/p EVAR - has residual descending aortic dissection ext ending into iliacs. No evidence of rupture on CTA. Reviewed by vascular surgery - appreciate assitance - optimal BP Control as above 4. Acute on chronic systolic heart failure -Improved significantly 5. Shock - resolved 6. JENNIFER on CKD -On dialysis, per nephrology - Has elevated potassium 6.1, of note he also h as somewhat of an anemia hemoglobin steadily fallen 7. Acute hypoxic respiratory failure - now has tracheostomy- per critical care team 8. Stroke: - CT head and MRI with evidence of prior CVA - TTE with possible PFO - Given patient going through family issues jesse l defer to PFO closure until potentially early next week or as an outpatient Electronically Signed by Giancarlo Phan MD on 10/14 at 1913 RPT #:[id number] END OF REPORT 2020-07-30 11:34:00-00:[address] [facility] ([facility]) Critical Care Progress Note REPORT#:[id number] REPORT STATUS: Signed DATE:07/30/20 TIME: 1134 PATIENT: JORGE GOINS UNIT #: [id number] ROOM/BED: [address] : 86 AGE: 34 SEX: M ATTEND: Raphael Davila MD ADM AUTHOR: Mathew Lizama MD R1 * ALL edits or amendments must be made on the [employer]/computer document * Subjective Chief complaint: trach collar HPI: Trach downsized overnight. Trach was dis lodged this AM. Pt was satting well so trach was removed and trachostomy was co radha with gauze. Pt currently satting well without issues. Pt denies any new complaint s. Pt hyperkalemic overnight, received insulin + D5 0 but refused kayexalate. Review of Systems Constitutional: Denies: chills, fever, generalized weakness. Respiratory: Denies: COATES (dyspnea on exertion), non productiv e cough, productive cough ( sputum), SOB. Cardiovascular: Denies: chest pain, palpitations. GI: Denies: abdominal pain, constipation, diarrhea, nausea, vomiting. Neuro: Reports: headache. Denies: confusion. All systems rev neg: except as marked Objective General VS/I O Last Documented: Result Date Time Pulse Ox 100 07/30 1206 B/P 162/73 07/30 1206 B/P Mean 102.5 07/30 1206 O2 Delivery Room air 07/30 1206 Temp 36.9 07/30 1206 Pulse 74 07/30 1206 Resp 18 07/30 1206 O2 Flow Rate 5 07/28 2322 FiO2 21 07/25 0928 24 hour I O ending at 0700: 07/30 0700 07/29 1900 Intake Total 480 Output Total 750 Balance -270 Intake, Oral 480 Output, Urine 750 PATIENT WEIGHT: Weight (lb): 191 Weight (oz): 9.31 Weight (kg): 86.900 Medications: Active Meds + DC'd Last 24 Hrs Sodium Polystyrene Sulfonate 30 GM ONCE ONE PO ( DC) Calcium Gluconate/Sodium Chloride 50 ML ONCE ONE IV (DC) Dextrose/Water 50 ML ONCE ONE IV (DC) Insulin Human Regular 10 UNIT ONCE ONE IV (DC) Sodium Bicarbonate 100 MEQ ONCE ONE IV (DC) Hydrocodone Bitart/Acetaminophen 1 TAB Q6H PRN P RN PO Collagenase 1 APPLIC DAILY TOPICAL Aspirin 81 MG DAILY PO Atorvastatin Calcium 40 MG DAILY PO Nifedipine 30 MG Q6HR PO Isosorbide Mononitrate 30 MG BID PO Acetaminophen 650 MG Q4H PRN PRN PO Famotidine 20 MG DAILY PO Labetalol HCl 600 MG Q8HR PO Heparin Sodium (Porcine) 5,000 UNIT Q12HR SUBQ Heparin Sodium (Porcine) 2,000 UNIT DIALYSIS-DOS E BEFORE IV (CKD) Heparin Sodium (Porcine) 5,000 UNIT DIALYSIS-DOS E AFTER MISC Sodium Chloride 1,000 ML ASDIR PRN IV Labetalol HCl 10 MG Q6H PRN PRN IV Dextrose/Water 25 ML ASDIR PRN IV Glucagon 1 MG ASDIR PRN IM Insulin Human Lispro LOW DOSE SCALE ASDIR SUBQ Physical Exam General appearance: alert, awake, oriented, no r espiratory distress Neck: tracheostomy Cardiovascular: normal capillary refill, normal heart sounds, regular rate and rhythm Respiratory: aerating well, clear to auscultatio n, no distress, trach collar displaced and removed Abdomen: soft, non-tender Extremities: moves all, normal capillary refill Neuro/RADIOTELEGRAPHIST: focal weakness (b/l LE), alert, orien kar X 3, CNII-XII intact Results Findings/data: Laboratory Tests 07/30 07/30 07/29 0957 0026 1516 Chemistry Sodium (137 - 145 mmol/L) 135 L Potassium (3.4 - 5.0 mmol/L) 6.1 H 5.7 H 6.1 H Chloride (98 - 107 mmol/L) 104 Carbon Dioxide (22 - 30 mmol/L) 22 BUN (9 - 20 mg/dL) 41 H Creatinine (0.7 - 1.3 mg/dL) 2.1 H Glomerular Filtr Rate (>60) 47 L Glucose (74 - 106 mg/dL) 125 H Calcium (8.4 - 10.2 mg/dL) 8.9 Total Bilirubin (0.2 - 1.3 mg/dL) 0.7 Conjugated Bilirubin (0 - 0.3 mg/dL) 0 Unconjugated Bilirubin (0 - 1.1 mg/dL) 0.4 AST (15 - 46 U/L) 31 ALT (0 - 34 U/L) 32 Total Alk Phosphatase (38 - 126 U/L) 86 Total Protein (6.3 - 8.2 g/dL) 6.2 L Albumin (3.5 - 5.0 g/dL) 3.2 L Laboratory Tests 07/30 0957 Hematology WBC (5.0 - 12.0 x10 3/uL) 8.4 RBC (4.70 - 6.10 x10 6/uL) 2.58 L Hgb (14.0 - 18.0 g/dL) 7.4 L Hct (37.0 - 49.0 %) 24.7 L MCV (80 - 94 fL) 96 H MCH (27 - 31 pg) 28.7 MCHC (33 - 37 g/dL) 30.0 L RDW (11.5 - 15.5 %) 17.2 H Plt Count (130 - 400 x10 3/uL) 209 MPV (9.4 - 16.4 fL) 10.3 Neut % (Auto) (43 - 65 %) 80.8 H Lymph % (Auto) (20.5 - 45.5 %) 9.2 L Citrus % (Auto) (5.5 - 11.7 %) 6.0 Eos % (Auto) (0.9 - 2.9 %) 2.9 Baso % (Auto) (0.2 - 1.0 %) 0.6 Neut # (Auto) (2.2 - 4.8 x10 3/uL) 6.77 H Lymph # (Auto) (1.3 - 2.9 x10 3/uL) 0.77 L Citrus # (Auto) (0.3 - 0.8 x10 3/uL) 0.50 Eos # (Auto) (0.0 - 0.2 x10 3/uL) 0.24 H Baso # (Auto) (0.0 - 0.1 x10 3/uL) 0.05 Immature Gran % (0.0 - 2.0 %) 0.5 Nucleated RBC % (0 - 1.0 %) 0.0 Laboratory Tests 07/30/20 0957: [Embedded Image Not Available] 07/30/20 0026: [Embedded Image Not Available] 07/29/20 1516: [Embedded Image Not Available] Radiology data Recent Impressions: RADIOLOGY - XR CHEST 1 V 07/29 1617 Report Impression - Status: SIGNED Entered: 07/29/2020 1641 IMPRESSION: Mild hazy atelectasis or pneumonia at the right lung base. Impression By: [email or web address] - Santosh Carson M.D. Diagnosis, Assessment Plan Free text A P: 34 year old male with history of aortic dissecti on s/p EVAR came in for hypertensive urgency A/P: Neuro # stroke # b/l LE weakness - MRI multiple ischemic cva - A Ox3 - MRI spine ok - Neuro consulted - may need LP/CSF analysis for LE weakness, pt declined - discussed PFO closure with cards, scheduled f or later this week - PT/OT consulted Pulm -s/p trach -On TC - trach downsized overnight - trach dislodged this AM, removed since pt sat ting well on RA - dressing in place on trachostomy - pt on RA, satting well - CXR shows mild hazy atelectasis or PNA at R [place] base CV #s/p Cardiac Arrest - PEA hypotensive. ROSC achieved after 9 minutes - likely from cardiogenic shock EF 30-34% - Aortic dissection ruled out from CTA chest, ab domen and pelvis #hx of EVAR for aortic dissection and h/o endole ak in the past - per vascular surgery - HTN better controlled, off cardene # PFO - cards consulted - PFO closure later this week # Fever - positive blood culture - respiratory source'unlikley clabsi - abx Renal # Acute renal failure - nephro consulted - hold on HD given good urine output gi ppx: pepcid diet: renal dvt ppx: heparin Trachostomy tube dislodged this AM. Pt satting w ell on RA so trachostomy was removed. Dressing in place o n trachostomy, pt continues to sat well. Monitor pt' s respiratory status. I have discussed the assessment and plan with Dr Matt Olmedo. Electronically Signed by Mathew Lizama MD R1 on at 1443 RPT #:[id number] END OF REPORT 2020-07-30 11:34:00-00:[address] [facility] ([facility]) Critical Care Progress Note REPORT#:[id number] REPORT STATUS: Signed DATE:07/30/20 TIME: 1134 PATIENT: JORGE GOINS UNIT #: [id number] ROOM/BED: [address] : 86 AGE: 34 SEX: M ATTEND: Raphael Davila MD ADM AUTHOR: Mathew Lizama MD R1 * ALL edits or amendments must be made on the rimidi/computer document * Mathew Lizama T 07/30/20 1134: Subjective Chief complaint: trach collar HPI: Trach downsized overnight. Trach was dis lodged this AM. Pt was satting well so trach was removed and trachostomy was co radha with gauze. Pt currently satting well without issues. Pt denies any new complaint s. Pt hyperkalemic overnight, received insulin + D5 0 but refused kayexalate. Review of Systems Constitutional: Denies: chills, fever, generalized weakness. Respiratory: Denies: COATES (dyspnea on exertion), non productiv e cough, productive cough ( sputum), SOB. Cardiovascular: Denies: chest pain, palpitations. GI: Denies: abdominal pain, constipation, diarrhea, nausea, vomiting. Neuro: Reports: headache. Denies: confusion. All systems rev neg: except as marked Objective General VS/I O Last Documented: Result Date Time Pulse Ox 100 02 1206 B/P 162/73 07/30 1206 B/P Mean 102.5 07/30 1206 O2 Delivery Room air 07/30 1206 Temp 36.9 07/30 1206 Pulse 74 07/30 1206 Resp 18 07/30 1206 O2 Flow Rate 5 07/28 2322 FiO2 21 07/25 0928 24 hour I O ending at 0700: 07/30 0700 07/29 1900 Intake Total 480 Output Total 750 Balance -270 Intake, Oral 480 Output, Urine 750 PATIENT WEIGHT: Weight (lb): 191 Weight (oz): 9.31 Weight (kg): 86.900 Medications: Active Meds + DC'd Last 24 Hrs Sodium Polystyrene Sulfonate 30 GM ONCE ONE PO ( DC) Calcium Gluconate/Sodium Chloride 50 ML ONCE ONE IV (DC) Dextrose/Water 50 ML ONCE ONE IV (DC) Insulin Human Regular 10 UNIT ONCE ONE IV (DC) Sodium Bicarbonate 100 MEQ ONCE ONE IV (DC) Hydrocodone Bitart/Acetaminophen 1 TAB Q6H PRN P RN PO Collagenase 1 APPLIC DAILY TOPICAL Aspirin 81 MG DAILY PO Atorvastatin Calcium 40 MG DAILY PO Nifedipine 30 MG Q6HR PO Isosorbide Mononitrate 30 MG BID PO Acetaminophen 650 MG Q4H PRN PRN PO Famotidine 20 MG DAILY PO Labetalol HCl 600 MG Q8HR PO Heparin Sodium (Porcine) 5,000 UNIT Q12HR SUBQ Heparin Sodium (Porcine) 2,000 UNIT DIALYSIS-DOS E BEFORE IV (CKD) Heparin Sodium (Porcine) 5,000 UNIT DIALYSIS-DOS E AFTER MISC Sodium Chloride 1,000 ML ASDIR PRN IV Labetalol HCl 10 MG Q6H PRN PRN IV Dextrose/Water 25 ML ASDIR PRN IV Glucagon 1 MG ASDIR PRN IM Insulin Human Lispro LOW DOSE SCALE ASDIR SUBQ Physical Exam General appearance: alert, awake, oriented, no r espiratory distress Neck: tracheostomy Cardiovascular: normal capillary refill, normal heart sounds, regular rate and rhythm Respiratory: aerating well, clear to auscultatio n, no distress, trach collar displaced and removed Abdomen: soft, non-tender Extremities: moves all, normal capillary refill Neuro/RADIOTELEGRAPHIST: focal weakness (b/l LE), alert, orien kar X 3, CNII-XII intact Results Findings/data: Laboratory Tests 07/30 07/30 07/29 0957 0026 1516 Chemistry Sodium (137 - 145 mmol/L) 135 L Potassium (3.4 - 5.0 mmol/L) 6.1 H 5.7 H 6.1 H Chloride (98 - 107 mmol/L) 104 Carbon Dioxide (22 - 30 mmol/L) 22 BUN (9 - 20 mg/dL) 41 H Creatinine (0.7 - 1.3 mg/dL) 2.1 H Glomerular Filtr Rate (>60) 47 L Glucose (74 - 106 mg/dL) 125 H Calcium (8.4 - 10.2 mg/dL) 8.9 Total Bilirubin (0.2 - 1.3 mg/dL) 0.7 Conjugated Bilirubin (0 - 0.3 mg/dL) 0 Unconjugated Bilirubin (0 - 1.1 mg/dL) 0.4 AST (15 - 46 U/L) 31 ALT (0 - 34 U/L) 32 Total Alk Phosphatase (38 - 126 U/L) 86 Total Protein (6.3 - 8.2 g/dL) 6.2 L Albumin (3.5 - 5.0 g/dL) 3.2 L Laboratory Tests 07/30 0957 Hematology WBC (5.0 - 12.0 x10 3/uL) 8.4 RBC (4.70 - 6.10 x10 6/uL) 2.58 L Hgb (14.0 - 18.0 g/dL) 7.4 L Hct (37.0 - 49.0 %) 24.7 L MCV (80 - 94 fL) 96 H MCH (27 - 31 pg) 28.7 MCHC (33 - 37 g/dL) 30.0 L RDW (11.5 - 15.5 %) 17.2 H Plt Count (130 - 400 x10 3/uL) 209 MPV (9.4 - 16.4 fL) 10.3 Neut % (Auto) (43 - 65 %) 80.8 H Lymph % (Auto) (20.5 - 45.5 %) 9.2 L Citrus % (Auto) (5.5 - 11.7 %) 6.0 Eos % (Auto) (0.9 - 2.9 %) 2.9 Baso % (Auto) (0.2 - 1.0 %) 0.6 Neut # (Auto) (2.2 - 4.8 x10 3/uL) 6.77 H Lymph # (Auto) (1.3 - 2.9 x10 3/uL) 0.77 L Citrus # (Auto) (0.3 - 0.8 x10 3/uL) 0.50 Eos # (Auto) (0.0 - 0.2 x10 3/uL) 0.24 H Baso # (Auto) (0.0 - 0.1 x10 3/uL) 0.05 Immature Gran % (0.0 - 2.0 %) 0.5 Nucleated RBC % (0 - 1.0 %) 0.0 Laboratory Tests 07/30/20 0957: [Embedded Image Not Available] 07/30/20 0026: [Embedded Image Not Available] 07/29/20 1516: [Embedded Image Not Available] Radiology data Recent Impressions: RADIOLOGY - XR CHEST 1 V 07/29 1617 Report Impression - Status: SIGNED Entered: 07/29/2020 1641 IMPRESSION: Mild hazy atelectasis or pneumonia at the right lung base. Impression By: [email or web address] - Santosh Carson M.D. Diagnosis, Assessment Plan Free text A P: 34 year old male with history of aortic dissecti on s/p EVAR came in for hypertensive urgency A/P: Neuro # stroke # b/l LE weakness - MRI multiple ischemic cva - A Ox3 - MRI spine ok - Neuro consulted - may need LP/CSF analysis for LE weakness, pt declined - discussed PFO closure with cards, scheduled f or later this week - PT/OT consulted Pulm -s/p trach -On TC - trach downsized overnight - trach dislodged this AM, removed since pt sat ting well on RA - dressing in place on trachostomy - pt on RA, satting well - CXR shows mild hazy atelectasis or PNA at R [place] base CV #s/p Cardiac Arrest - PEA hypotensive. ROSC achieved after 9 minutes - likely from cardiogenic shock EF 30-34% - Aortic dissection ruled out from CTA chest, ab domen and pelvis #hx of EVAR for aortic dissection and h/o endole ak in the past - per vascular surgery - HTN better controlled, off cardene # PFO - cards consulted - PFO closure later this week # Fever - positive blood culture - respiratory source'unlikley clabsi - abx Renal # Acute renal failure - nephro consulted - hold on HD given good urine output gi ppx: pepcid diet: renal dvt ppx: heparin Trachostomy tube dislodged this AM. Pt satting w ell on RA so trachostomy was removed. Dressing in place o n trachostomy, pt continues to sat well. Monitor pt' s respiratory status. I have discussed the assessment and plan with Dr Matt Olmedo. Edy Olmedo 08/10/20 1633: Attestations Physician Attestation Agree w/findings plan: I have personally interviewed and examin ed the patient 07/30/2020. All charts, labs, and imaging studies were reviewed. I agree with the resident's findings, exam, and plan. Lungs are clear Decannulated. We will sign off. Electronically Signed by Mathew Lizama MD R1 on at 1443 Electronically Signed by Edy Olmedo MD on at 1633 RPT #:[id number] END OF REPORT 2020-07-30 11:12:00-00:00 [facility] REPORT#:[id number] REPORT STATUS: Signed DATE:07/30/20 TIME: 1112 PATIENT: JORGE GOINS UNIT #: [id number] ROOM/BED: [address] : [birth year] AGE: 34 SEX: M ATTEND: Raphael Davila MD ADM AUTHOR: Sanju Guillory MD * ALL edits or amendments must be made on the rimidi/computer document * Subjective Chief Complaint: Follow-up of acute CVA HPI: Patient seen and examined. Respiratory therapist was at bedside. His tracheostomy was noted to be falling out and patient was able to talk and having no respiratory distress. Discussed with pulmonar y, plan to discontinue tracheostomy. Potassium level was noted to be hi gh today. He is very sad as his mother last ni ght. Review of Systems Constitutional: Denies: chills, fatigue, fever. Respiratory: Denies: COATES (dyspnea on exertion), SOB. Cardiovascular: Denies: chest pain. All systems rev neg: except as marked Objective General VS/I O: Vital Signs: Date Time Temp Pulse Resp B/P B/P Pulse O2 O2 Fl ow FiO2 Mean Ox Delivery Rate 07/30 0800 69 136/76 96 07/30 0352 98.6 69 20 103/55 71.0 96 07/30 0041 97.3 70 19 130/67 88.1 98 / 2310 Tracheostomy collar 07/29 1941 98.6 68 20 114/58 76.8 96 07/29 1549 68 13 133/67 88.7 91 24 hour I O ending at 0700: 07/30 0700 07/29 1900 Intake Total 480 Output Total 750 Balance -270 Intake, Oral 480 Output, Urine 750 PATIENT WEIGHT: Weight (lb): 191 Weight (oz): 9.31 Weight (kg): 86.900 Medications: Active Meds + DC'd Last 24 Hrs Sodium Polystyrene Sulfonate 30 GM ONCE ONE PO ( DC) Hydrocodone Bitart/Acetaminophen 1 TAB Q6H PRN P RN PO Collagenase 1 APPLIC DAILY TOPICAL Aspirin 81 MG DAILY PO Atorvastatin Calcium 40 MG DAILY PO Nifedipine 30 MG Q6HR PO Isosorbide Mononitrate 30 MG BID PO Acetaminophen 650 MG Q4H PRN PRN PO Famotidine 20 MG DAILY PO Labetalol HCl 600 MG Q8HR PO Heparin Sodium (Porcine) 5,000 UNIT Q12HR SUBQ Heparin Sodium (Porcine) 2,000 UNIT DIALYSIS-DOS E BEFORE IV (CKD) Heparin Sodium (Porcine) 5,000 UNIT DIALYSIS-DOS E AFTER MISC Sodium Chloride 1,000 ML ASDIR PRN IV Labetalol HCl 10 MG Q6H PRN PRN IV Dextrose/Water 25 ML ASDIR PRN IV Glucagon 1 MG ASDIR PRN IM Insulin Human Lispro LOW DOSE SCALE ASDIR SUBQ Physical Exam General appearance: alert, awake, oriented, no a cute distress Head/Eyes: atraumatic Cardiovascular: normal heart sounds, regular rat e rhythm Respiratory: aerating well, clear to auscultatio n Abdomen: non-tender, normal bowel sounds, soft Extremities: no clubbing Results Findings/Data: Laboratory Tests 07/30 07/30 0957 0026 Chemistry Sodium (137 - 145 mmol/L) 135 L Potassium (3.4 - 5.0 mmol/L) 6.1 H 5.7 H Chloride (98 - 107 mmol/L) 104 Carbon Dioxide (22 - 30 mmol/L) 22 BUN (9 - 20 mg/dL) 41 H Creatinine (0.7 - 1.3 mg/dL) 2.1 H Glomerular Filtr Rate (>60) 47 L Glucose (74 - 106 mg/dL) 125 H Calcium (8.4 - 10.2 mg/dL) 8.9 Total Bilirubin (0.2 - 1.3 mg/dL) 0.7 Conjugated Bilirubin (0 - 0.3 mg/dL) 0 Unconjugated Bilirubin (0 - 1.1 mg/dL) 0.4 AST (15 - 46 U/L) 31 ALT (0 - 34 U/L) 32 Total Alk Phosphatase (38 - 126 U/L) 86 Total Protein (6.3 - 8.2 g/dL) 6.2 L Albumin (3.5 - 5.0 g/dL) 3.2 L Laboratory Tests 07/30 0957 Hematology WBC (5.0 - 12.0 x10 3/uL) 8.4 RBC (4.70 - 6.10 x10 6/uL) 2.58 L Hgb (14.0 - 18.0 g/dL) 7.4 L Hct (37.0 - 49.0 %) 24.7 L MCV (80 - 94 fL) 96 H MCH (27 - 31 pg) 28.7 MCHC (33 - 37 g/dL) 30.0 L RDW (11.5 - 15.5 %) 17.2 H Plt Count (130 - 400 x10 3/uL) 209 MPV (9.4 - 16.4 fL) 10.3 Neut % (Auto) (43 - 65 %) 80.8 H Lymph % (Auto) (20.5 - 45.5 %) 9.2 L Citrus % (Auto) (5.5 - 11.7 %) 6.0 Eos % (Auto) (0.9 - 2.9 %) 2.9 Baso % (Auto) (0.2 - 1.0 %) 0.6 Neut # (Auto) (2.2 - 4.8 x10 3/uL) 6.77 H Lymph # (Auto) (1.3 - 2.9 x10 3/uL) 0.77 L Citrus # (Auto) (0.3 - 0.8 x10 3/uL) 0.50 Eos # (Auto) (0.0 - 0.2 x10 3/uL) 0.24 H Baso # (Auto) (0.0 - 0.1 x10 3/uL) 0.05 Immature Gran % (0.0 - 2.0 %) 0.5 Nucleated RBC % (0 - 1.0 %) 0.0 Diagnosis, Assessment Plan Free Text DxA P Notes Free text DxA P notes: 1. Acute encephalopathy - resolved 2. Lower extremity weakness- critical illness my opathy 3. Acute ischemic strokes, suspect embolic sourc e, + PFO, b/l lower extremity dopplers negative 4. s/p PEA arrest 06/11/20 5. hypertensive emergency - improved,con tinue hydralazine,labetalol,clonidine, nifedipine,losartan cardio on board 6. acute respiratory failure, s/p trach...pulmon kenan on board 7. Type b aortic dissection 8. JENNIFER - Nephrology following. Kidney functions have im proved. Patient making good urine output. No need for hemodialysis. 9.Stroke....MRI multiple ischemic cva.......amu gement per neuro 10.systolic CHF ...improving gi ppx: pepcid dvt ppx: heparin Plan to discontinue tracheostomy today. Will give Kayexalate for hyperkalemia an d recheck potassium level later today. Plan for PFO closure early next week. Discussed with case manageme nt. Plan to discharge home with supervision or to a personal jail. Discussed at length with the patient and the [facility] staff at bedside. Electronically Signed by Sanju Guillory MD on 1 at 2138 RPT #:[id number] END OF REPORT 2020-07-30 08:39:00-00:00 [facility] Neurology Progress Note REPORT#:[id number] REPORT STATUS: Signed DATE:07/30/20 TIME: 08 PATIENT: JORGE GOINS UNIT #: [id number] [address] [birth year] AGE: 34 SEX: M ATTEND: Raphael Davila MD ADM AUTHOR: Seda Vega NP * ALL edits or amendments must be made on the el ectronic/computer document * Subjective Chief Complaint: no acute neuro events, BLE weakness, no changes Objective General VS: Last Documented: Result Date Time Pulse Ox 100 07/30 1206 B/P 162/73 07/30 1206 B/P Mean 102.5 07/30 1206 O2 Delivery Room air 07/30 1206 Temp 98.4 07/30 1206 Pulse 74 02 1206 Resp 18 07/30 1206 O2 Flow Rate 5 07/28 2322 FiO2 21 07/25 0928 PATIENT WEIGHT: Weight (lb): 191 Weight (oz): 9.31 Weight (kg): 86.900 Medications Current Home Medications ALBUTEROL (PROAIR HFA 90 MCG/ACT 8.5 GM) 2 PUFF INH RTQ6H PRN PRN SOB ASPIRIN EC (ECOTRIN) 81 MG PO DAILY CARVEDILOL (COREG) 25 MG PO BID MEALS ACETAMINOPHEN/CODEINE (TYLENOL WITH CODE INE #4 300/60 MG) 1 TAB PO Q6H PRN PRN PAIN ATORVASTATIN (LIPITOR) 20 MG PO BEDTIME LOSARTAN (COZAAR) 100 MG PO DAILY NIFEdipine CC (ADALAT CC) 90 MG PO Q12HR HYDROCHLOROTHIAZIDE (HYDRODIURIL) 25 MG PO DAILY Active Meds + DC'd Last 24 Hrs Sodium Polystyrene Sulfonate 30 GM ONCE ONE PO ( DC) Calcium Gluconate/Sodium Chloride 50 ML ONCE ONE IV (DC) Dextrose/Water 50 ML ONCE ONE IV (DC) Insulin Human Regular 10 UNIT ONCE ONE IV (DC) Sodium Bicarbonate 100 MEQ ONCE ONE IV (DC) Hydrocodone Bitart/Acetaminophen 1 TAB Q6H PRN P RN PO Collagenase 1 APPLIC DAILY TOPICAL Aspirin 81 MG DAILY PO Atorvastatin Calcium 40 MG DAILY PO Nifedipine 30 MG Q6HR PO Isosorbide Mononitrate 30 MG BID PO Acetaminophen 650 MG Q4H PRN PRN PO Famotidine 20 MG DAILY PO Labetalol HCl 600 MG Q8HR PO Heparin Sodium (Porcine) 5,000 UNIT Q12HR SUBQ Heparin Sodium (Porcine) 2,000 UNIT DIALYSIS-DO SE BEFORE IV (CKD) Heparin Sodium (Porcine) 5,000 UNIT DIALYSIS-DOS E AFTER MISC Sodium Chloride 1,000 ML ASDIR PRN IV Labetalol HCl 10 MG Q6H PRN PRN IV Dextrose/Water 25 ML ASDIR PRN IV Glucagon 1 MG ASDIR PRN IM Insulin Human Lispro LOW DOSE SCALE ASDIR SUBQ Physical Exam General appearance: alert, awake Results Findings/Data: Laboratory Tests 07/30 07/30 07/29 0957 0026 1516 Chemistry Sodium (137 - 145 mmol/L) 135 L Potassium (3.4 - 5.0 mmol/L) 6.1 H 5.7 H 6.1 H Chloride (98 - 107 mmol/L) 104 Carbon Dioxide (22 - 30 mmol/L) 22 BUN (9 - 20 mg/dL) 41 H Creatinine (0.7 - 1.3 mg/dL) 2.1 H Glomerular Filtr Rate (>60) 47 L Glucose (74 - 106 mg/dL) 125 H Calcium (8.4 - 10.2 mg/dL) 8.9 Total Bilirubin (0.2 - 1.3 mg/dL) 0.7 Conjugated Bilirubin (0 - 0.3 mg/dL) 0 Unconjugated Bilirubin (0 - 1.1 mg/dL) 0.4 AST (15 - 46 U/L) 31 ALT (0 - 34 U/L) 32 Total Alk Phosphatase (38 - 126 U/L) 86 Total Protein (6.3 - 8.2 g/dL) 6.2 L Albumin (3.5 - 5.0 g/dL) 3.2 L Laboratory Tests 07/30 0957 Hematology WBC (5.0 - 12.0 x10 3/uL) 8.4 RBC (4.70 - 6.10 x10 6/uL) 2.58 L Hgb (14.0 - 18.0 g/dL) 7.4 L Hct (37.0 - 49.0 %) 24.7 L MCV (80 - 94 fL) 96 H MCH (27 - 31 pg) 28.7 MCHC (33 - 37 g/dL) 30.0 L RDW (11.5 - 15.5 %) 17.2 H Plt Count (130 - 400 x10 3/uL) 209 MPV (9.4 - 16.4 fL) 10.3 Neut % (Auto) (43 - 65 %) 80.8 H Lymph % (Auto) (20.5 - 45.5 %) 9.2 L Citrus % (Auto) (5.5 - 11.7 %) 6.0 Eos % (Auto) (0.9 - 2.9 %) 2.9 Baso % (Auto) (0.2 - 1.0 %) 0.6 Neut # (Auto) (2.2 - 4.8 x10 3/uL) 6.77 H Lymph # (Auto) (1.3 - 2.9 x10 3/uL) 0.77 L Citrus # (Auto) (0.3 - 0.8 x10 3/uL) 0.50 Eos # (Auto) (0.0 - 0.2 x10 3/uL) 0.24 H Baso # (Auto) (0.0 - 0.1 x10 3/uL) 0.05 Immature Gran % (0.0 - 2.0 %) 0.5 Nucleated RBC % (0 - 1.0 %) 0.0 Radiology Data: Recent Impressions: RADIOLOGY - XR CHEST 1 V 07/29 1617 Report Impression - Status: SIGNED Entered: 07/29/2020 1641 IMPRESSION: Mild hazy atelectasis or pneumonia at the right lung base. Impression By: [email or web address] - Santosh Carson M.D. Diagnosis, Assessment Plan Problem List/A P: 1. Hypertensive urgency 2. Metabolic encephalopathy 3. Critical illness myopathy Free Text A P: Assessment 1. Acute encephalopathy - improving multifactori al - metabolic/hypertensive emergency/acute stroke 2. Lower extremity weakness- critical illness my opathy vs GBS 3. Acute ischemic strokes, suspect embolic sourc e, + PFO, b/l lower extremity dopplers negative 4. s/p PEA arrest 06/11/20 5. hypertensive emergency - improved 6. acute respiratory failure, s/p trach 7. type b aortic dissection 8. JENNIFER -pt refused LP for lower extremity weakness -repeat head CT unremarkable (2/3) Plan -monitor neuro status -per Cardio - PFO closure soon -aggressive PT/OT -on asa, statin -continue plan of care -d/w pt, Dr Parson -will follow Electronically Signed by Seda Vega NP on 10/14 at 1311 RPT #:[id number] END OF REPORT 2020-07-30 08:39:00-00:[address] [facility] ([facility]) Neurology Progress Note REPORT#:[id number] REPORT STATUS: Signed DATE:07/30/20 TIME: 0839 PATIENT: JORGE GOINS UNIT #: [id number] [place] [facility] [place] AGE: 34 SEX: M ATTEND: Raphael Davila MD ADM AUTHOR: Seda Vega BRAZING MACHINE TENDER * ALL edits or amendments must be made on the el Digital [employer]/computer document * Seda Vega 07/30/20 0839: Subjective Chief Complaint: no acute neuro events, BLE weakness, no changes Objective General VS: Last Documented: Result Date Time Pulse Ox 100 07/30 1206 B/P 162/73 07/30 1206 B/P Mean 102.5 07/30 1206 O2 Delivery Room air 07/30 1206 Temp 98.4 07/30 1206 Pulse 74 07/30 1206 Resp 18 07/30 1206 O2 Flow Rate 5 07/28 2322 FiO2 21 07/25 0928 PATIENT WEIGHT: Weight (lb): 191 Weight (oz): 9.31 Weight (kg): 86.900 Medications Current Home Medications ALBUTEROL (PROAIR HFA 90 MCG/ACT 8.5 GM) 2 PUFF INH RTQ6H PRN PRN SOB ASPIRIN EC (ECOTRIN) 81 MG PO DAILY CARVEDILOL (COREG) 25 MG PO BID MEALS ACETAMINOPHEN/CODEINE (TYLENOL WITH CODE INE #4 300/60 MG) 1 TAB PO Q6H PRN PRN PAIN ATORVASTATIN (LIPITOR) 20 MG PO BEDTIME LOSARTAN (COZAAR) 100 MG PO DAILY NIFEdipine CC (ADALAT CC) 90 MG PO Q12HR HYDROCHLOROTHIAZIDE (HYDRODIURIL) 25 MG PO DAILY Active Meds + DC'd Last 24 Hrs Sodium Polystyrene Sulfonate 30 GM ONCE ONE PO ( DC) Calcium Gluconate/Sodium Chloride 50 ML ONCE ONE IV (DC) Dextrose/Water 50 ML ONCE ONE IV (DC) Insulin Human Regular 10 UNIT ONCE ONE IV (DC) Sodium Bicarbonate 100 MEQ ONCE ONE IV (DC) Hydrocodone Bitart/Acetaminophen 1 TAB Q6H PRN P RN PO Collagenase 1 APPLIC DAILY TOPICAL Aspirin 81 MG DAILY PO Atorvastatin Calcium 40 MG DAILY PO Nifedipine 30 MG Q6HR PO Isosorbide Mononitrate 30 MG BID PO Acetaminophen 650 MG Q4H PRN PRN PO Famotidine 20 MG DAILY PO Labetalol HCl 600 MG Q8HR PO Heparin Sodium (Porcine) 5,000 UNIT Q12HR SUBQ Heparin Sodium (Porcine) 2,000 UNIT DIALYSIS-DOS E BEFORE IV (CKD) Heparin Sodium (Porcine) 5,000 UNIT DIALYSIS-DOS E AFTER MISC Sodium Chloride 1,000 ML ASDIR PRN IV Labetalol HCl 10 MG Q6H PRN PRN IV Dextrose/Water 25 ML ASDIR PRN IV Glucagon 1 MG ASDIR PRN IM Insulin Human Lispro LOW DOSE SCALE ASDIR SUBQ Physical Exam General appearance: alert, awake Results Findings/Data: Laboratory Tests 07/30 07/30 07/29 0957 0026 1516 Chemistry Sodium (137 - 145 mmol/L) 135 L Potassium (3.4 - 5.0 mmol/L) 6.1 H 5.7 H 6.1 H Chloride (98 - 107 mmol/L) 104 Carbon Dioxide (22 - 30 mmol/L) 22 BUN (9 - 20 mg/dL) 41 H Creatinine (0.7 - 1.3 mg/dL) 2.1 H Glomerular Filtr Rate (>60) 47 L Glucose (74 - 106 mg/dL) 125 H Calcium (8.4 - 10.2 mg/dL) 8.9 Total Bilirubin (0.2 - 1.3 mg/dL) 0.7 Conjugated Bilirubin (0 - 0.3 mg/dL) 0 Unconjugated Bilirubin (0 - 1.1 mg/dL) 0.4 AST (15 - 46 U/L) 31 ALT (0 - 34 U/L) 32 Total Alk Phosphatase (38 - 126 U/L) 86 Total Protein (6.3 - 8.2 g/dL) 6.2 L Albumin (3.5 - 5.0 g/dL) 3.2 L Laboratory Tests 07/30 0957 Hematology WBC (5.0 - 12.0 x10 3/uL) 8.4 RBC (4.70 - 6.10 x10 6/uL) 2.58 L Hgb (14.0 - 18.0 g/dL) 7.4 L Hct (37.0 - 49.0 %) 24.7 L MCV (80 - 94 fL) 96 H MCH (27 - 31 pg) 28.7 MCHC (33 - 37 g/dL) 30.0 L RDW (11.5 - 15.5 %) 17.2 H Plt Count (130 - 400 x10 3/uL) 209 MPV (9.4 - 16.4 fL) 10.3 Neut % (Auto) (43 - 65 %) 80.8 H Lymph % (Auto) (20.5 - 45.5 %) 9.2 L Citrus % (Auto) (5.5 - 11.7 %) 6.0 Eos % (Auto) (0.9 - 2.9 %) 2.9 Baso % (Auto) (0.2 - 1.0 %) 0.6 Neut # (Auto) (2.2 - 4.8 x10 3/uL) 6.77 H Lymph # (Auto) (1.3 - 2.9 x10 3/uL) 0.77 L Citrus # (Auto) (0.3 - 0.8 x10 3/uL) 0.50 Eos # (Auto) (0.0 - 0.2 x10 3/uL) 0.24 H Baso # (Auto) (0.0 - 0.1 x10 3/uL) 0.05 Immature Gran % (0.0 - 2.0 %) 0.5 Nucleated RBC % (0 - 1.0 %) 0.0 Radiology Data: Recent Impressions: RADIOLOGY - XR CHEST 1 V 07/29 1617 Report Impression - Status: SIGNED Entered: 07/29/2020 1641 IMPRESSION: Mild hazy atelectasis or pneumonia at the right lung base. Impression By: [email or web address] - Santosh Carson M.D. Diagnosis, Assessment Plan Problem List/A P: 1. Hypertensive urgency 2. Metabolic encephalopathy 3. Critical illness myopathy Free Text A P: Assessment 1. Acute encephalopathy - improving multifactori al - metabolic/hypertensive emergency/acute stroke 2. Lower extremity weakness- critical illness my opathy vs GBS 3. Acute ischemic strokes, suspect embolic sourc e, + PFO, b/l lower extremity dopplers negative 4. s/p PEA arrest 06/11/20 5. hypertensive emergency - improved 6. acute respiratory failure, s/p trach 7. type b aortic dissection 8. JENNIFER -pt refused LP for lower extremity weakness -repeat head CT unremarkable (2/3) Plan -monitor neuro status -per Cardio - PFO closure soon -aggressive PT/OT -on asa, statin -continue plan of care -d/w pt, Dr Parson -will follow Jessica Parson 07/31/20 1005: Attestations Physician Attestation Agree w/findings plan: EMR reviewed 07/30/20, agree with the findings and plan as documented by Seda Vega NP Electronically Signed by Seda Vega NP on 10/14 at 1311 Electronically Signed by Jessica Parson MD on at 1005 RPT #:[id number] END OF REPORT 2020-07-29 22:39:00-00:[address] [facility] ([facility]) Cardiology Progress Note REPORT#:[id number] REPORT STATUS: Signed DATE:07/29/20 TIME: 2238 PATIENT: JORGE GOINS UNIT #: [id number] ROOM/BED: [address] : [birth year] AGE: 34 SEX: M ATTEND: Raphael Davila MD ADM AUTHOR: Giancarlo Phan MD * ALL edits or amendments must be made on the el [employer]/computer document * Subjective Free Text Subj Notes Free Text Subj Notes: Is resting. He denies any chest pain shortness o f breath Objective Physical Exam Head/Eyes: atraumatic, clear cornea, EOMI, brooklynn l conjunctiva/sclera, normocephalic, PERRL, PERRLA ENT: normal nose, normal pharynx, trache with pa ssimuir valve placed Neck: full range of motion, non-tender, normal thyroid, supple/no meningismus, no bruit/NL carotids, no JVD, no lymphadenopathy , no masses or swelling Cardiovascular: CV assessment: regular rate and rhythm, normal heart sounds Respiratory: on oxygen, clear to auscultation, n o distress Abdomen: non-tender, normal bowel sounds , no distention, no guarding, no mass/ organomegaly, no pulsatile mass, no rebound Upper extremity: UE assessment: normal capillary refill, no timur a Lower extremity: LE assessment: normal capillary refill, no timur a Musculoskeletal: full range of motion, normal in spection 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, oriented X 3, normal speech Skin: dry Lymphatics: axilla normal, inguinal normal, neck normal, no lymphadenopathy Psychiatry: normal judgment/insight, normal mood Diagnosis, Assessment Plan Free Text DxA P Notes Free Text DxA P Notes: 1. Hypertensive urgency/emergency - presented with severely elevated BP requiring 2 IV infusions, subsequently suffered PEA cardiac arrest - BP control improving - cont hydralazine 100mg Q8H, labetalol 600mg Q 8H - nifedipine 30mg QID, patients blood pressure much better controlled - losartan 50mg BID has been started will cont to monitor 2/3 - Patient's blood pressure has been for the better part controlled but he had one episode of blood pressure 160 otherwise no other complaints 2. Cardiac arrest - PEA in etiology, pt became hypothermic and fan bsequently bradycardic 3. Type B aortic dissection s/p EVAR - has residual descending aortic dissection ext ending into iliacs. No evidence of rupture on CTA. Reviewed by vascular surgery - appreciate assitance - optimal BP Control as above 4. Acute on chronic systolic heart failure -Improved significantly 5. Shock - resolved 6. JENNIFER on CKD -On dialysis, per nephrology - Has elevated potassium 6.1, of note he also h as somewhat of an anemia hemoglobin steadily fallen 7. Acute hypoxic respiratory failure - now has tracheostomy- per critical care team 8. Stroke: - CT head and MRI with evidence of prior CVA - TTE with possible PFO - Plan cardiology to attempt to close PFO day Monday of this week. Electronically Signed by Giancarlo Phan MD on 09/13 at 2241 RPT #:[id number] END OF REPORT 2020-07-29 21:06:00-00:00 [facility] Nephrology Progress Note REPORT#:[id number] REPORT STATUS: Signed DATE:07/29/20 TIME: 2105 PATIENT: JORGE GOINS UNIT #: [id number] ROOM/BED: [address] : [birth year] AGE: 34 SEX: M ATTEND: Raphael Davila MD ADM AUTHOR: Jojo York MD * ALL edits or amendments must be made on the el [employer]/computer document * Subjective Comments: EVENTS NOTED REFUSED KAYEXALATE Objective General VS/I O: Vital Signs: Date Time Temp Pulse Resp B/P B/P Pulse O2 O2 Fl ow FiO2 Mean Ox Delivery Rate 07/29 1941 98.6 68 20 114/58 76.8 96 07/29 1549 68 13 133/67 88.7 91 / 1045 59 13 163/79 107.1 99 07/29 0751 61 15 135/69 90.6 100 07/29 0504 98.1 60 15 148/75 99.1 99 07/28 2322 5 Tracheostomy collar 07/28 2251 98.4 62 15 136/77 96.4 100 24 hour I O ending at 0700: 07/29 0700 07/28 1900 Intake Total 450 Output Total 400 Balance -400 450 Intake, Oral 450 Output, Stool 0 Output, Urine 400 PATIENT WEIGHT: Weight (lb): 191 Weight (oz): 9.31 Weight (kg): 86.900 Medications Active Meds + DC'd Last 24 Hrs Calcium Gluconate/Sodium Chloride 50 ML ONCE ONE IV (DC) Dextrose/Water 50 ML ONCE ONE IV (DC) Insulin Human Regular 10 UNIT ONCE ONE IV (DC) Sodium Bicarbonate 100 MEQ ONCE ONE IV (DC) Hydrocodone Bitart/Acetaminophen 1 TAB Q6H PRN P RN PO Acetaminophen 650 MG Q6H PRN PRN PO (DC) Dextrose/Water 50 ML ONCE ONE IV (DC) Insulin Human Regular 10 UNIT ONCE ONE IV (DC) Sodium Polystyrene Sulfonate 15 GM ONCE ONE PO ( DC) Collagenase 1 APPLIC DAILY TOPICAL Aspirin 81 MG DAILY PO Atorvastatin Calcium 40 MG DAILY PO Nifedipine 30 MG Q6HR PO Isosorbide Mononitrate 30 MG BID PO Acetaminophen 650 MG Q4H PRN PRN PO Famotidine 20 MG DAILY PO Labetalol HCl 600 MG Q8HR PO Heparin Sodium (Porcine) 5,000 UNIT Q12HR SUBQ Heparin Sodium (Porcine) 2,000 UNIT DIALYSIS-DOS E BEFORE IV (CKD) Heparin Sodium (Porcine) 5,000 UNIT DIALYSIS-DOS E AFTER MISC Sodium Chloride 1,000 ML ASDIR PRN IV Labetalol HCl 10 MG Q6H PRN PRN IV Potassium Chloride 100 ML ASDIR PRN IV (DC) Potassium Bicarbonate/Citric Acid 20 MEQ ASDIR P O (DC) Potassium Chloride 100 ML ASDIR PRN IV (DC) Dextrose/Water 25 ML ASDIR PRN IV Glucagon 1 MG ASDIR PRN IM Insulin Human Lispro LOW DOSE SCALE ASDIR SUBQ Physical Exam General appearance: no acute distress ENT: moist mucous membranes Neck: no JVD, no masses or swelling Cardiovascular: normal heart sounds, regular rat e and rhythm Respiratory: aerating well, clear to auscultatio n Abdomen: normal bowel sounds, soft Extremities: no edema Musculoskeletal: decreased ROM 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 Results Findings/Data: Laboratory Tests 07/29 07/29 1516 0915 Chemistry Sodium (137 - 145 mmol/L) 133 L Potassium (3.4 - 5.0 mmol/L) 6.1 H 6.2 H Chloride (98 - 107 mmol/L) 104 Carbon Dioxide (22 - 30 mmol/L) 23 BUN (9 - 20 mg/dL) 45 H Creatinine (0.7 - 1.3 mg/dL) 2.2 H Glomerular Filtr Rate (>60) 45 L Glucose (74 - 106 mg/dL) 92 Calcium (8.4 - 10.2 mg/dL) 8.9 Total Bilirubin (0.2 - 1.3 mg/dL) 0.8 Conjugated Bilirubin (0 - 0.3 mg/dL) 0 Unconjugated Bilirubin (0 - 1.1 mg/dL) 0.5 AST (15 - 46 U/L) 52 H ALT (0 - 34 U/L) 34 Total Alk Phosphatase (38 - 126 U/L) 85 Total Protein (6.3 - 8.2 g/dL) 6.3 Albumin (3.5 - 5.0 g/dL) 3.2 L Laboratory Tests 07/29 0915 Hematology WBC (5.0 - 12.0 x10 3/uL) 9.1 RBC (4.70 - 6.10 x10 6/uL) 2.70 L Hgb (14.0 - 18.0 g/dL) 7.6 L Hct (37.0 - 49.0 %) 25.1 L MCV (80 - 94 fL) 93 MCH (27 - 31 pg) 28.1 MCHC (33 - 37 g/dL) 30.3 L RDW (11.5 - 15.5 %) 16.9 H Plt Count (130 - 400 x10 3/uL) 195 MPV (9.4 - 16.4 fL) 10.2 Neut % (Auto) (43 - 65 %) 81.4 H Lymph % (Auto) (20.5 - 45.5 %) 8.5 L Citrus % (Auto) (5.5 - 11.7 %) 6.7 Eos % (Auto) (0.9 - 2.9 %) 2.1 Baso % (Auto) (0.2 - 1.0 %) 0.7 Neut # (Auto) (2.2 - 4.8 x10 3/uL) 7.39 H Lymph # (Auto) (1.3 - 2.9 x10 3/uL) 0.77 L Citrus # (Auto) (0.3 - 0.8 x10 3/uL) 0.61 Eos # (Auto) (0.0 - 0.2 x10 3/uL) 0.19 Baso # (Auto) (0.0 - 0.1 x10 3/uL) 0.06 Immature Gran % (0.0 - 2.0 %) 0.6 Nucleated RBC % (0 - 1.0 %) 0.0 Diagnosis, Assessment Plan Free Text A P: JENNIFER hypotension AAA lactic acidosis severe metabolic acidosis- resolved Metabolic alkalosis - resolved Making good urine Mental status has significantly improved will give insulin, d50, sodium bicarba nd ca glu conate at 2107 RPT #:[id number] END OF REPORT 2020-07-29 14:00:00-00:00 [facility]) Critical Care Progress Note REPORT#:[id number] REPORT STATUS: Signed DATE:07/29/20 TIME: 1400 PATIENT: JORGE GOINS UNIT #: [id number] ROOM/BED: [address] : 87 AGE: 34 SEX: M ATTEND: Raphael Davila MD ADM AUTHOR: Mathew Lizama MD R1 * ALL edits or amendments must be made on the rimidi/computer document * Subjective Chief complaint: trach collar HPI: PMV valve placed yesterday. Pt currently on 28% FiO2, satting well. Reports some pulmonary congestion and cough but denies SOB. N o new complaints. Review of Systems Constitutional: Denies: chills, fever. Respiratory: Reports: non productive cough, other (congestion ). Denies: productive cough ( sputum), SOB. Cardiovascular: Denies: chest pain, edema, orthopnea. GI: Denies: abdominal pain, nausea, vomiting. Neuro: Denies: dizziness, headache. All systems rev neg: except as marked Objective General VS/I O Last Documented: Result Date Time Pulse Ox 91 07/29 1549 B/P 133/67 07/29 1549 B/P Mean 88.7 07/29 1549 Pulse 68 07/29 1549 Resp 13 07/29 1549 Temp 36.7 07/29 0504 O2 Delivery Tracheostomy collar 07/28 232 O2 Flow Rate 5 07/28 232 FiO2 21 07/25 0928 24 hour I O ending at 0700: 07/29 0700 07/28 1900 Intake Total 450 Output Total 400 Balance -400 450 Intake, Oral 450 Output, Stool 0 Output, Urine 400 PATIENT WEIGHT: Weight (lb): 191 Weight (oz): 9.31 Weight (kg): 86.900 Medications: Active Meds + DC'd Last 24 Hrs Calcium Gluconate/Sodium Chloride 50 ML ONCE ONE IV (DC) Dextrose/Water 50 ML ONCE ONE IV (DC) Insulin Human Regular 10 UNIT ONCE ONE IV (DC) Sodium Bicarbonate 100 MEQ ONCE ONE IV (DC) Hydrocodone Bitart/Acetaminophen 1 TAB Q6H PRN P RN PO Acetaminophen 650 MG Q6H PRN PRN PO (DC) Dextrose/Water 50 ML ONCE ONE IV (DC) Insulin Human Regular 10 UNIT ONCE ONE IV (DC) Sodium Polystyrene Sulfonate 15 GM ONCE ONE PO ( DC) Collagenase 1 APPLIC DAILY TOPICAL Aspirin 81 MG DAILY PO Atorvastatin Calcium 40 MG DAILY PO Nifedipine 30 MG Q6HR PO Isosorbide Mononitrate 30 MG BID PO Acetaminophen 650 MG Q4H PRN PRN PO Famotidine 20 MG DAILY PO Labetalol HCl 600 MG Q8HR PO Heparin Sodium (Porcine) 5,000 UNIT Q12HR SUBQ Heparin Sodium (Porcine) 2,000 UNIT DIALYSIS-DOS E BEFORE IV (CKD) Heparin Sodium (Porcine) 5,000 UNIT DIALYSIS-DOS E AFTER MISC Sodium Chloride 1,000 ML ASDIR PRN IV Labetalol HCl 10 MG Q6H PRN PRN IV Potassium Chloride 100 ML ASDIR PRN IV (DC) Potassium Bicarbonate/Citric Acid 20 MEQ ASDIR P O (DC) Potassium Chloride 100 ML ASDIR PRN IV (DC) Dextrose/Water 25 ML ASDIR PRN IV Glucagon 1 MG ASDIR PRN IM Insulin Human Lispro LOW DOSE SCALE ASDIR SUBQ Physical Exam General appearance: respiratory support (28% TC) , alert, awake, oriented Neck: tracheostomy (w/ collar and PMV valve) Cardiovascular: normal capillary refill, normal heart sounds, regular rate and rhythm Respiratory: aerating well, clear to auscultatio n, no distress Abdomen: soft, non-tender Extremities: moves all, normal capillary refill Neuro/RADIOTELEGRAPHIST: focal weakness (b/l LE), alert, orien kar X 3, CNII-XII intact Results Findings/data: Laboratory Tests 07/29 07/29 1516 0915 Chemistry Sodium (137 - 145 mmol/L) 133 L Potassium (3.4 - 5.0 mmol/L) 6.1 H 6.2 H Chloride (98 - 107 mmol/L) 104 Carbon Dioxide (22 - 30 mmol/L) 23 BUN (9 - 20 mg/dL) 45 H Creatinine (0.7 - 1.3 mg/dL) 2.2 H Glomerular Filtr Rate (>60) 45 L Glucose (74 - 106 mg/dL) 92 Calcium (8.4 - 10.2 mg/dL) 8.9 Total Bilirubin (0.2 - 1.3 mg/dL) 0.8 Conjugated Bilirubin (0 - 0.3 mg/dL) 0 Unconjugated Bilirubin (0 - 1.1 mg/dL) 0.5 AST (15 - 46 U/L) 52 H ALT (0 - 34 U/L) 34 Total Alk Phosphatase (38 - 126 U/L) 85 Total Protein (6.3 - 8.2 g/dL) 6.3 Albumin (3.5 - 5.0 g/dL) 3.2 L Laboratory Tests 07/29 0915 Hematology WBC (5.0 - 12.0 x10 3/uL) 9.1 RBC (4.70 - 6.10 x10 6/uL) 2.70 L Hgb (14.0 - 18.0 g/dL) 7.6 L Hct (37.0 - 49.0 %) 25.1 L MCV (80 - 94 fL) 93 MCH (27 - 31 pg) 28.1 MCHC (33 - 37 g/dL) 30.3 L RDW (11.5 - 15.5 %) 16.9 H Plt Count (130 - 400 x10 3/uL) 195 MPV (9.4 - 16.4 fL) 10.2 Neut % (Auto) (43 - 65 %) 81.4 H Lymph % (Auto) (20.5 - 45.5 %) 8.5 L Citrus % (Auto) (5.5 - 11.7 %) 6.7 Eos % (Auto) (0.9 - 2.9 %) 2.1 Baso % (Auto) (0.2 - 1.0 %) 0.7 Neut # (Auto) (2.2 - 4.8 x10 3/uL) 7.39 H Lymph # (Auto) (1.3 - 2.9 x10 3/uL) 0.77 L Citrus # (Auto) (0.3 - 0.8 x10 3/uL) 0.61 Eos # (Auto) (0.0 - 0.2 x10 3/uL) 0.19 Baso # (Auto) (0.0 - 0.1 x10 3/uL) 0.06 Immature Gran % (0.0 - 2.0 %) 0.6 Nucleated RBC % (0 - 1.0 %) 0.0 Laboratory Tests 07/29/20 1516: [Embedded Image Not Available] 07/29/20 0915: [Embedded Image Not Available] Radiology data Recent Impressions: CAT SCAN - CT HEAD/BRAIN W/O CONT 07/29 1125 Report Impression - Status: SIGNED Entered: 07/29/2020 1152 IMPRESSION: 1. No CT evidence of acute intracranial abnormal ity. 2. Focal dystropic cortical calcifications in th e left frontal lobe. Impression By: [email or web address] - Denny Mohamud MD RADIOLOGY - XR CHEST 1 V 07/29 1617 Report Impression - Status: SIGNED Entered: 07/29/2020 1641 IMPRESSION: Mild hazy atelectasis or pneumonia at the right lung base. Impression By: [email or web address] - Santosh Carson M.D. Diagnosis, Assessment Plan Free text A P: 34 year old male with history of aortic dissecti on s/p EVAR came in for hypertensive urgency A/P: Neuro # stroke # b/l LE weakness - MRI multiple ischemic cva - A Ox3 - MRI spine ok - Neuro consulted - may need LP/CSF analysis for LE weakness, pt declined - discussed PFO closure with cards, scheduled f or later this week - PT/OT consulted Pulm -s/p trach -On TC - PMV valve in place - pt on 28% FiO2, satting well - CXR shows mild hazy atelectasis or PNA at [place] base CV #s/p Cardiac Arrest - PEA hypotensive. ROSC achieved after 9 minutes - likely from cardiogenic shock EF 30-34% - Aortic dissection ruled out from CTA chest, ab domen and pelvis #hx of EVAR for aortic dissection and h/o endole ak in the past - per vascular surgery - HTN better controlled, off cardene # PFO - cards consulted - PFO closure later this week # Fever - positive blood culture - respiratory source'unlikley clabsi - abx Renal # Acute renal failure - nephro consulted - hold on HD given good urine output gi ppx: pepcid diet: renal dvt ppx: heparin I have discussed the assessment and plan with Dr Matt Olmedo. Electronically Signed by Mathew Lizama MD R1 on at 1735 RPT #:[id number] END OF REPORT 2020-07-29 14:00:00-00:[address] [facility] ([facility]) Critical Care Progress Note REPORT#:[id number] REPORT STATUS: Signed DATE:07/29/20 TIME: 1400 PATIENT: JORGE GOINS UNIT #: [id number] ROOM/BED: [address] : 86 AGE: 34 SEX: M ATTEND: Raphael Davila MD ADM AUTHOR: Mathew Lizama MD R1 * ALL edits or amendments must be made on the rimidi/computer document * Mathew Lizama 07/29/20 1400: Subjective Chief complaint: trach collar HPI: PMV valve placed yesterday. Pt currently on 28% FiO2, satting well. Reports some pulmonary congestion and cough but denies SOB. N o new complaints. Review of Systems Constitutional: Denies: chills, fever. Respiratory: Reports: non productive cough, other (congestion ). Denies: productive cough ( sputum), SOB. Cardiovascular: Denies: chest pain, edema, orthopnea. GI: Denies: abdominal pain, nausea, vomiting. Neuro: Denies: dizziness, headache. All systems rev neg: except as marked Objective General VS/I O Last Documented: Result Date Time Pulse Ox 91 07/29 1549 B/P 133/67 07/29 1549 B/P Mean 88.7 07/29 1549 Pulse 68 07/29 1549 Resp 13 07/29 1549 Temp 36.7 07/29 0504 O2 Delivery Tracheostomy collar 07/28 232 O2 Flow Rate 5 07/28 232 FiO2 21 07/25 0928 24 hour I O ending at 0700: 07/29 0700 07/28 1900 Intake Total 450 Output Total 400 Balance -400 450 Intake, Oral 450 Output, Stool 0 Output, Urine 400 PATIENT WEIGHT: Weight (lb): 191 Weight (oz): 9.31 Weight (kg): 86.900 Medications: Active Meds + DC'd Last 24 Hrs Calcium Gluconate/Sodium Chloride 50 ML ONCE ONE IV (DC) Dextrose/Water 50 ML ONCE ONE IV (DC) Insulin Human Regular 10 UNIT ONCE ONE IV (DC) Sodium Bicarbonate 100 MEQ ONCE ONE IV (DC) Hydrocodone Bitart/Acetaminophen 1 TAB Q6H PRN P RN PO Acetaminophen 650 MG Q6H PRN PRN PO (DC) Dextrose/Water 50 ML ONCE ONE IV (DC) Insulin Human Regular 10 UNIT ONCE ONE IV (DC) Sodium Polystyrene Sulfonate 15 GM ONCE ONE PO ( DC) Collagenase 1 APPLIC DAILY TOPICAL Aspirin 81 MG DAILY PO Atorvastatin Calcium 40 MG DAILY PO Nifedipine 30 MG Q6HR PO Isosorbide Mononitrate 30 MG BID PO Acetaminophen 650 MG Q4H PRN PRN PO Famotidine 20 MG DAILY PO Labetalol HCl 600 MG Q8HR PO Heparin Sodium (Porcine) 5,000 UNIT Q12HR SUBQ Heparin Sodium (Porcine) 2,000 UNIT DIALYSIS-DO SE BEFORE IV (CKD) Heparin Sodium (Porcine) 5,000 UNIT DIALYSIS-DOS E AFTER MISC Sodium Chloride 1,000 ML ASDIR PRN IV Labetalol HCl 10 MG Q6H PRN PRN IV Potassium Chloride 100 ML ASDIR PRN IV (DC) Potassium Bicarbonate/Citric Acid 20 MEQ ASDIR P O (DC) Potassium Chloride 100 ML ASDIR PRN IV (DC) Dextrose/Water 25 ML ASDIR PRN IV Glucagon 1 MG ASDIR PRN IM Insulin Human Lispro LOW DOSE SCALE ASDIR SUBQ Physical Exam General appearance: respiratory support (28% TC) , alert, awake, oriented Neck: tracheostomy (w/ collar and PMV valve) Cardiovascular: normal capillary refill, normal heart sounds, regular rate and rhythm Respiratory: aerating well, clear to auscultatio n, no distress Abdomen: soft, non-tender Extremities: moves all, normal capillary refill Neuro/RADIOTELEGRAPHIST: focal weakness (b/l LE), alert, orien kar X 3, CNII-XII intact Results Findings/data: Laboratory Tests 07/29 07/29 1516 0915 Chemistry Sodium (137 - 145 mmol/L) 133 L Potassium (3.4 - 5.0 mmol/L) 6.1 H 6.2 H Chloride (98 - 107 mmol/L) 104 Carbon Dioxide (22 - 30 mmol/L) 23 BUN (9 - 20 mg/dL) 45 H Creatinine (0.7 - 1.3 mg/dL) 2.2 H Glomerular Filtr Rate (>60) 45 L Glucose (74 - 106 mg/dL) 92 Calcium (8.4 - 10.2 mg/dL) 8.9 Total Bilirubin (0.2 - 1.3 mg/dL) 0.8 Conjugated Bilirubin (0 - 0.3 mg/dL) 0 Unconjugated Bilirubin (0 - 1.1 mg/dL) 0.5 AST (15 - 46 U/L) 52 H ALT (0 - 34 U/L) 34 Total Alk Phosphatase (38 - 126 U/L) 85 Total Protein (6.3 - 8.2 g/dL) 6.3 Albumin (3.5 - 5.0 g/dL) 3.2 L Laboratory Tests 07/29 0915 Hematology WBC (5.0 - 12.0 x10 3/uL) 9.1 RBC (4.70 - 6.10 x10 6/uL) 2.70 L Hgb (14.0 - 18.0 g/dL) 7.6 L Hct (37.0 - 49.0 %) 25.1 L MCV (80 - 94 fL) 93 MCH (27 - 31 pg) 28.1 MCHC (33 - 37 g/dL) 30.3 L RDW (11.5 - 15.5 %) 16.9 H Plt Count (130 - 400 x10 3/uL) 195 MPV (9.4 - 16.4 fL) 10.2 Neut % (Auto) (43 - 65 %) 81.4 H Lymph % (Auto) (20.5 - 45.5 %) 8.5 L Citrus % (Auto) (5.5 - 11.7 %) 6.7 Eos % (Auto) (0.9 - 2.9 %) 2.1 Baso % (Auto) (0.2 - 1.0 %) 0.7 Neut # (Auto) (2.2 - 4.8 x10 3/uL) 7.39 H Lymph # (Auto) (1.3 - 2.9 x10 3/uL) 0.77 L Citrus # (Auto) (0.3 - 0.8 x10 3/uL) 0.61 Eos # (Auto) (0.0 - 0.2 x10 3/uL) 0.19 Baso # (Auto) (0.0 - 0.1 x10 3/uL) 0.06 Immature Gran % (0.0 - 2.0 %) 0.6 Nucleated RBC % (0 - 1.0 %) 0.0 Laboratory Tests 07/29/20 1516: [Embedded Image Not Available] 07/29/20 0915: [Embedded Image Not Available] Radiology data Recent Impressions: CAT SCAN - CT HEAD/BRAIN W/O CONT 07/29 1125 Report Impression - Status: SIGNED Entered: 07/29/2020 1152 IMPRESSION: 1. No CT evidence of acute intracranial abnormal ity. 2. Focal dystropic cortical calcifications in th e left frontal lobe. Impression By: [email or web address] - Denny Mohamud MD RADIOLOGY - XR CHEST 1 V 07/29 1617 Report Impression - Status: SIGNED Entered: 07/29/2020 1641 IMPRESSION: Mild hazy atelectasis or pneumonia at the right lung base. Impression By: [email or web address] - Santosh Carson M.D. Diagnosis, Assessment Plan Free text A P: 34 year old male with history of aortic dissecti on s/p EVAR came in for hypertensive urgency A/P: Neuro # stroke # b/l LE weakness - MRI multiple ischemic cva - A Ox3 - MRI spine ok - Neuro consulted - may need LP/CSF analysis for LE weakness, pt declined - discussed PFO closure with cards, scheduled f or later this week - PT/OT consulted Pulm -s/p trach -On TC - PMV valve in place - pt on 28% FiO2, satting well - CXR shows mild hazy atelectasis or PNA at R [place] base CV #s/p Cardiac Arrest - PEA hypotensive. ROSC achieved after 9 minutes - likely from cardiogenic shock EF 30-34% - Aortic dissection ruled out from CTA chest, ab domen and pelvis #hx of EVAR for aortic dissection and h/o endole ak in the past - per vascular surgery - HTN better controlled, off cardene # PFO - cards consulted - PFO closure later this week # Fever - positive blood culture - respiratory source'unlikley clabsi - abx Renal # Acute renal failure - nephro consulted - hold on HD given good urine output gi ppx: pepcid diet: renal dvt ppx: heparin I have discussed the assessment and plan with Dr Matt Olmedo. Edy Olmedo 08/10/20 1633: Attestations Physician Attestation Agree w/findings plan: I have personally interviewed and examin ed the patient 07/29/2020. All charts, labs, and imaging studies were reviewed. I agree with the resident's findings, exam, and plan. Lungs are clear Will plan for decannulation. Electronically Signed by Mathew Lizama MD R1 on at 1735 Electronically Signed by Edy Olmedo MD on at 1633 RPT #:[id number] END OF REPORT 2020-07-29 13:09:00-00:[address] [facility] ([facility] Cardiology Progress Note REPORT#:[id number] REPORT STATUS: Signed DATE:07/29/20 TIME: 1309 PATIENT: JORGE GOINS UNIT #: [id number] ROOM/BED: [address] : [birth year] AGE: 34 SEX: M ATTEND: Raphael Davila MD ADM AUTHOR: Perry Moran CNP * ALL edits or amendments must be made on the rimidi/computer document * Subjective Chief Complaint: Denies complaints. Has loose cough. Passy fern v alve in place. On O2 at 5L trache collar. Tele: SR/SB 54-70s Objective General VS/I O: 24 hour I O ending at 0700: 07/29 0700 07/28 1900 Intake Total 450 Output Total 400 Balance -400 450 Intake, Oral 450 Output, Stool 0 Output, Urine 400 Vital Signs: Date Time Temp Pulse Resp B/P B/P Pulse O2 O2 Fl ow FiO2 Mean Ox Delivery Rate 07/29 1045 59 13 163/79 107.1 99 07/29 0751 61 15 135/69 90.6 100 07/29 0504 98.1 60 15 148/75 99.1 99 07/28 2322 5 Tracheostomy collar 07/28 2251 98.4 62 15 136/77 96.4 100 07/28 1828 98.4 63 18 116/60 78.7 99 07/28 1500 66 132/55 81.0 PATIENT WEIGHT: Weight (lb): 191 Weight (oz): 9.31 Weight (kg): 86.900 Medications: Active Meds + DC'd Last 24 Hrs Acetaminophen 650 MG Q6H PRN PRN PO (DC) Dextrose/Water 50 ML ONCE ONE IV (DC) Insulin Human Regular 10 UNIT ONCE ONE IV (DC) Sodium Polystyrene Sulfonate 15 GM ONCE ONE PO ( DC) Collagenase 1 APPLIC DAILY TOPICAL Sodium Polystyrene Sulfonate 30 GM ONCE ONE PO ( DC) Aspirin 81 MG DAILY PO Atorvastatin Calcium 40 MG DAILY PO Nifedipine 30 MG Q6HR PO Isosorbide Mononitrate 30 MG BID PO Acetaminophen 650 MG Q4H PRN PRN PO Famotidine 20 MG DAILY PO Labetalol HCl 600 MG Q8HR PO Heparin Sodium (Porcine) 5,000 UNIT Q12HR SUBQ Losartan Potassium 50 MG BID PO (DC) Heparin Sodium (Porcine) 2,000 UNIT DIALYSIS-DOS E BEFORE IV (CKD) Heparin Sodium (Porcine) 5,000 UNIT DIALYSIS-DOS E AFTER MISC Sodium Chloride 1,000 ML ASDIR PRN IV Labetalol HCl 10 MG Q6H PRN PRN IV Potassium Chloride 100 ML ASDIR PRN IV (DC) Potassium Bicarbonate/Citric Acid 20 MEQ ASDIR P O (DC) Potassium Chloride 100 ML ASDIR PRN IV (DC) Hydralazine HCl 100 MG Q8HR PO (DC) Dextrose/Water 25 ML ASDIR PRN IV Glucagon 1 MG ASDIR PRN IM Insulin Human Lispro LOW DOSE SCALE ASDIR SUBQ Physical Exam General appearance: alert, awake, oriented, no a cute distress, pleasant, conversational, no respiratory distress Head/Eyes: atraumatic, clear cornea, EOMI, brooklynn l conjunctiva/sclera, normocephalic, PERRL, PERRLA ENT: normal nose, normal pharynx, trache with pa ssimuir valve placed Neck: full range of motion, non-tender, normal thyroid, supple/no meningismus, no bruit/NL carotids, no JVD, no lymphadenopathy , no masses or swelling Cardiovascular: CV assessment: regular rate and rhythm, normal heart sounds Respiratory: on oxygen, clear to auscultation, n o distress Abdomen: non-tender, normal bowel sounds , no distention, no guarding, no mass/ organomegaly, no pulsatile mass, no rebound Upper extremity: UE assessment: normal capillary refill, no timur a Lower extremity: LE assessment: normal capillary refill, no timur a Musculoskeletal: full range of motion, normal in spection 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, oriented X 3, normal speech Skin: dry Psychiatry: normal judgment/insight, normal mood Results Findings/Data: Laboratory Tests 07/29 914 Chemistry Sodium (137 - 145 mmol/L) 133 L Potassium (3.4 - 5.0 mmol/L) 6.2 H Chloride (98 - 107 mmol/L) 104 Carbon Dioxide (22 - 30 mmol/L) 23 BUN (9 - 20 mg/dL) 45 H Creatinine (0.7 - 1.3 mg/dL) 2.2 H Glomerular Filtr Rate (>60) 45 L Glucose (74 - 106 mg/dL) 92 Calcium (8.4 - 10.2 mg/dL) 8.9 Total Bilirubin (0.2 - 1.3 mg/dL) 0.8 Conjugated Bilirubin (0 - 0.3 mg/dL) 0 Unconjugated Bilirubin (0 - 1.1 mg/dL) 0.5 AST (15 - 46 U/L) 52 H ALT (0 - 34 U/L) 34 Total Alk Phosphatase (38 - 126 U/L) 85 Total Protein (6.3 - 8.2 g/dL) 6.3 Albumin (3.5 - 5.0 g/dL) 3.2 L Laboratory Tests 07/29 0915 Hematology WBC (5.0 - 12.0 x10 3/uL) 9.1 RBC (4.70 - 6.10 x10 6/uL) 2.70 L Hgb (14.0 - 18.0 g/dL) 7.6 L Hct (37.0 - 49.0 %) 25.1 L MCV (80 - 94 fL) 93 MCH (27 - 31 pg) 28.1 MCHC (33 - 37 g/dL) 30.3 L RDW (11.5 - 15.5 %) 16.9 H Plt Count (130 - 400 x10 3/uL) 195 MPV (9.4 - 16.4 fL) 10.2 Neut % (Auto) (43 - 65 %) 81.4 H Lymph % (Auto) (20.5 - 45.5 %) 8.5 L Citrus % (Auto) (5.5 - 11.7 %) 6.7 Eos % (Auto) (0.9 - 2.9 %) 2.1 Baso % (Auto) (0.2 - 1.0 %) 0.7 Neut # (Auto) (2.2 - 4.8 x10 3/uL) 7.39 H Lymph # (Auto) (1.3 - 2.9 x10 3/uL) 0.77 L Citrus # (Auto) (0.3 - 0.8 x10 3/uL) 0.61 Eos # (Auto) (0.0 - 0.2 x10 3/uL) 0.19 Baso # (Auto) (0.0 - 0.1 x10 3/uL) 0.06 Immature Gran % (0.0 - 2.0 %) 0.6 Nucleated RBC % (0 - 1.0 %) 0.0 Radiology data: Recent Impressions: CAT SCAN - CT HEAD/BRAIN W/O CONT 07/29 1125 Report Impression - Status: SIGNED Entered: 07/29/2020 1152 IMPRESSION: 1. No CT evidence of acute intracranial abnormal ity. 2. Focal dystropic cortical calcifications in th e left frontal lobe. Impression By: [email or web address] - Denny Mohamud MD Diagnosis, Assessment Plan Free Text DxA P Notes Free Text DxA P Notes: 1. Hypertensive urgency/emergency - presented with severely elevated BP requiring 2 IV infusions, subsequently suffered PEA cardiac arrest - BP control improving - cont hydralazine 100mg Q8H, labetalol 600mg Q 8H - nifedipine 30mg QID, patients blood pressure much better controlled - losartan 50mg BID has been started will cont to monitor 2. Cardiac arrest - PEA in etiology, pt became hypothermic and fan bsequently bradycardic 3. Type B aortic dissection s/p EVAR - has residual descending aortic dissection ext ending into iliacs. No evidence of rupture on CTA. Reviewed by vascular surgery - appreciate assitance - optimal BP Control as above 4. Acute on chronic systolic heart failure -Improved significantly 5. Shock - resolved 6. JENNIFER on CKD -On dialysis, per nephrology 7. Acute hypoxic respiratory failure - now has tracheostomy- per critical care team 8. Stroke: - CT head and MRI with evidence of prior CVA - TTE with possible PFO - Plan cardiology to attempt to close PFO day Monday of this week. at 1031 RPT #:[id number] END OF REPORT 2020-07-29 11:03:00-00:[address] [facility] Hospitalist Progress Note REPORT#:[id number] REPORT STATUS: Signed DATE:07/29/20 TIME: 1103 PATIENT: JORGE GOINS UNIT #: [id number] ROOM/BED: [address] : 86 AGE: 34 SEX: M ATTEND: Raphael Davila MD ADM AUTHOR: Tessa Wolfe MD * ALL edits or amendments must be made on the el [employer]/computer document * Subjective Chief Complaint: pt seen no events over night no fever on TC no chest pain has headache Review of Systems All systems rev neg: except as marked Objective General VS/I O: Vital Signs: Date Time Temp Pulse Resp B/P B/P Pulse O2 O2 Fl ow FiO2 Mean Ox Delivery Rate 07/29 1045 59 13 163/79 107.1 99 07/29 0751 61 15 135/69 90.6 100 07/29 0504 98.1 60 15 148/75 99.1 99 07/28 2322 5 Tracheostomy collar 07/28 2251 98.4 62 15 136/77 96.4 100 07/28 1828 98.4 63 18 116/60 78.7 99 07/28 1500 66 132/55 81.0 24 hour I O ending at 0700: 07/29 0700 07/28 1900 Intake Total 450 Output Total 400 Balance -400 450 Intake, Oral 450 Output, Stool 0 Output, Urine 400 PATIENT WEIGHT: Weight (lb): 191 Weight (oz): 9.31 Weight (kg): 86.900 Medications: Active Meds + DC'd Last 24 Hrs Acetaminophen 650 MG Q6H PRN PRN PO (DC) Dextrose/Water 50 ML ONCE ONE IV (DC) Insulin Human Regular 10 UNIT ONCE ONE IV (DC) Sodium Polystyrene Sulfonate 15 GM ONCE ONE PO ( DC) Collagenase 1 APPLIC DAILY TOPICAL Sodium Polystyrene Sulfonate 30 GM ONCE ONE PO ( DC) Aspirin 81 MG DAILY PO Atorvastatin Calcium 40 MG DAILY PO Nifedipine 30 MG Q6HR PO Isosorbide Mononitrate 30 MG BID PO Acetaminophen 650 MG Q4H PRN PRN PO Famotidine 20 MG DAILY PO Labetalol HCl 600 MG Q8HR PO Heparin Sodium (Porcine) 5,000 UNIT Q12HR SUBQ Losartan Potassium 50 MG BID PO (DC) Heparin Sodium (Porcine) 2,000 UNIT DIALYSIS-DOS E BEFORE IV (CKD) Heparin Sodium (Porcine) 5,000 UNIT DIALYSIS-DOS E AFTER MISC Sodium Chloride 1,000 ML ASDIR PRN IV Labetalol HCl 10 MG Q6H PRN PRN IV Potassium Chloride 100 ML ASDIR PRN IV (DC) Potassium Bicarbonate/Citric Acid 20 MEQ ASDIR P O (DC) Potassium Chloride 100 ML ASDIR PRN IV (DC) Hydralazine HCl 100 MG Q8HR PO (DC) Dextrose/Water 25 ML ASDIR PRN IV Glucagon 1 MG ASDIR PRN IM Insulin Human Lispro LOW DOSE SCALE ASDIR SUBQ Physical Exam General appearance: alert, awake, oriented Head/Eyes: atraumatic Cardiovascular: normal heart sounds, regular rat e rhythm Respiratory: aerating well, clear to auscultatio n Abdomen: non-tender, normal bowel sounds, soft Extremities: no clubbing Results Findings/Data: Laboratory Tests 07/29 914 Chemistry Sodium (137 - 145 mmol/L) 133 L Potassium (3.4 - 5.0 mmol/L) 6.2 H Chloride (98 - 107 mmol/L) 104 Carbon Dioxide (22 - 30 mmol/L) 23 BUN (9 - 20 mg/dL) 45 H Creatinine (0.7 - 1.3 mg/dL) 2.2 H Glomerular Filtr Rate (>60) 45 L Glucose (74 - 106 mg/dL) 92 Calcium (8.4 - 10.2 mg/dL) 8.9 Total Bilirubin (0.2 - 1.3 mg/dL) 0.8 Conjugated Bilirubin (0 - 0.3 mg/dL) 0 Unconjugated Bilirubin (0 - 1.1 mg/dL) 0.5 AST (15 - 46 U/L) 52 H ALT (0 - 34 U/L) 34 Total Alk Phosphatase (38 - 126 U/L) 85 Total Protein (6.3 - 8.2 g/dL) 6.3 Albumin (3.5 - 5.0 g/dL) 3.2 L Laboratory Tests 07/29 914 Hematology WBC (5.0 - 12.0 x10 3/uL) 9.1 RBC (4.70 - 6.10 x10 6/uL) 2.70 L Hgb (14.0 - 18.0 g/dL) 7.6 L Hct (37.0 - 49.0 %) 25.1 L MCV (80 - 94 fL) 93 MCH (27 - 31 pg) 28.1 MCHC (33 - 37 g/dL) 30.3 L RDW (11.5 - 15.5 %) 16.9 H Plt Count (130 - 400 x10 3/uL) 195 MPV (9.4 - 16.4 fL) 10.2 Neut % (Auto) (43 - 65 %) 81.4 H Lymph % (Auto) (20.5 - 45.5 %) 8.5 L Citrus % (Auto) (5.5 - 11.7 %) 6.7 Eos % (Auto) (0.9 - 2.9 %) 2.1 Baso % (Auto) (0.2 - 1.0 %) 0.7 Neut # (Auto) (2.2 - 4.8 x10 3/uL) 7.39 H Lymph # (Auto) (1.3 - 2.9 x10 3/uL) 0.77 L Citrus # (Auto) (0.3 - 0.8 x10 3/uL) 0.61 Eos # (Auto) (0.0 - 0.2 x10 3/uL) 0.19 Baso # (Auto) (0.0 - 0.1 x10 3/uL) 0.06 Immature Gran % (0.0 - 2.0 %) 0.6 Nucleated RBC % (0 - 1.0 %) 0.0 Radiology data: Recent Impressions: CAT SCAN - CT HEAD/BRAIN W/O CONT 07/29 1125 Report Impression - Status: SIGNED Entered: 07/29/2020 1152 IMPRESSION: 1. No CT evidence of acute intracranial abnormal ity. 2. Focal dystropic cortical calcifications in th e left frontal lobe. Impression By: [email or web address] - Denny Mohamud MD Diagnosis, Assessment Plan Free Text DxA P Notes Free text DxA P notes: 1. Acute encephalopathy - resolved 2. Lower extremity weakness- critical illness my opathy vs GBS 3. Acute ischemic strokes, suspect embolic sourc e, + PFO, b/l lower extremity dopplers negative 4. s/p PEA arrest 06/11/20 5. hypertensive emergency - improved,con tinue hydralazine,labetalol,clonidine, nifedipine,losartan cardio on board 6. acute respiratory failure, s/p trach...pulmon kenan on board 7. Type b aortic dissection 8. JENNIFER.....nephrology on board .......ho ld off HD for now,ok to start losartan 9.Stroke....MRI multiple ischemic cva.......mau morejon per neuro 10.systolic CHF ...improving .....TTE wi th PFO, closure of PFO later this week per cardio 11.Hyperkalemia ... D50 and insulin ordered leona y,pt refused kayexalate repeat K later in afternoon,came out high again 6.1 d/w dr reyes calcium gluconate and sodium bicarbonate ordered ,will repeat bmp in am gi ppx: pepcid dvt ppx: heparin we will f/u d/w RN ct of head ordered since is complaining of bad headache ,neg for acute changes CXR ordered ,pt is at risk of developing aspirat ion pneumonia,speech therapy consulted Electronically Signed by Tessa Wolfe MD on at 1729 RPT #:[id number] END OF REPORT 2020-07-29 08:58:00-00:[address] [facility] ([facility]) Neurology Progress Note REPORT#:[id number] REPORT STATUS: Signed DATE:07/29/20 TIME: 0858 PATIENT: JORGE GOINS UNIT #: [id number] ROOM/BED: [address] : [birth year] AGE: 34 SEX: M ATTEND: Raphael Davila MD ADM AUTHOR: Seda Vega BRAZING MACHINE TENDER * ALL edits or amendments must be made on the rimidi/computer document * Subjective Chief Complaint: no acute neuro events, BLE weakness Objective General VS: Last Documented: Result Date Time Pulse Ox 99 07/29 1045 B/P 163/79 07/29 1045 B/P Mean 107.1 07/29 1045 Pulse 59 07/29 1045 Resp 13 07/29 1045 Temp 98.1 07/29 0504 O2 Delivery Tracheostomy collar 07/28 232 O2 Flow Rate 5 07/28 2322 FiO2 21 07/25 0928 PATIENT WEIGHT: Weight (lb): 191 Weight (oz): 9.31 Weight (kg): 86.900 Medications Current Home Medications ALBUTEROL (PROAIR HFA 90 MCG/ACT 8.5 GM) 2 PUFF INH RTQ6H PRN PRN SOB ASPIRIN EC (ECOTRIN) 81 MG PO DAILY CARVEDILOL (COREG) 25 MG PO BID MEALS ACETAMINOPHEN/CODEINE (TYLENOL WITH CODE INE #4 300/60 MG) 1 TAB PO Q6H PRN PRN PAIN ATORVASTATIN (LIPITOR) 20 MG PO BEDTIME LOSARTAN (COZAAR) 100 MG PO DAILY NIFEdipine CC (ADALAT CC) 90 MG PO Q12HR HYDROCHLOROTHIAZIDE (HYDRODIURIL) 25 MG PO DAILY Active Meds + DC'd Last 24 Hrs Acetaminophen 650 MG Q6H PRN PRN PO (DC) Dextrose/Water 50 ML ONCE ONE IV (DC) Insulin Human Regular 10 UNIT ONCE ONE IV (DC) Sodium Polystyrene Sulfonate 15 GM ONCE ONE PO ( DC) Collagenase 1 APPLIC DAILY TOPICAL Sodium Polystyrene Sulfonate 30 GM ONCE ONE PO ( DC) Aspirin 81 MG DAILY PO Atorvastatin Calcium 40 MG DAILY PO Nifedipine 30 MG Q6HR PO Isosorbide Mononitrate 30 MG BID PO Acetaminophen 650 MG Q4H PRN PRN PO Famotidine 20 MG DAILY PO Labetalol HCl 600 MG Q8HR PO Heparin Sodium (Porcine) 5,000 UNIT Q12HR SUBQ Losartan Potassium 50 MG BID PO (DC) Heparin Sodium (Porcine) 2,000 UNIT DIALYSIS-DOS E BEFORE IV (CKD) Heparin Sodium (Porcine) 5,000 UNIT DIALYSIS-DOS E AFTER MISC Sodium Chloride 1,000 ML ASDIR PRN IV Labetalol HCl 10 MG Q6H PRN PRN IV Potassium Chloride 100 ML ASDIR PRN IV (DC) Potassium Bicarbonate/Citric Acid 20 MEQ ASDIR P O (DC) Potassium Chloride 100 ML ASDIR PRN IV (DC) Hydralazine HCl 100 MG Q8HR PO (DC) Dextrose/Water 25 ML ASDIR PRN IV Glucagon 1 MG ASDIR PRN IM Insulin Human Lispro LOW DOSE SCALE ASDIR SUBQ Physical Exam General appearance: alert, awake, no acute distr ess Results Findings/Data: Laboratory Tests 07/29 0915 Chemistry Sodium (137 - 145 mmol/L) 133 L Potassium (3.4 - 5.0 mmol/L) 6.2 H Chloride (98 - 107 mmol/L) 104 Carbon Dioxide (22 - 30 mmol/L) 23 BUN (9 - 20 mg/dL) 45 H Creatinine (0.7 - 1.3 mg/dL) 2.2 H Glomerular Filtr Rate (>60) 45 L Glucose (74 - 106 mg/dL) 92 Calcium (8.4 - 10.2 mg/dL) 8.9 Total Bilirubin (0.2 - 1.3 mg/dL) 0.8 Conjugated Bilirubin (0 - 0.3 mg/dL) 0 Unconjugated Bilirubin (0 - 1.1 mg/dL) 0.5 AST (15 - 46 U/L) 52 H ALT (0 - 34 U/L) 34 Total Alk Phosphatase (38 - 126 U/L) 85 Total Protein (6.3 - 8.2 g/dL) 6.3 Albumin (3.5 - 5.0 g/dL) 3.2 L Laboratory Tests 07/29 0915 Hematology WBC (5.0 - 12.0 x10 3/uL) 9.1 RBC (4.70 - 6.10 x10 6/uL) 2.70 L Hgb (14.0 - 18.0 g/dL) 7.6 L Hct (37.0 - 49.0 %) 25.1 L MCV (80 - 94 fL) 93 MCH (27 - 31 pg) 28.1 MCHC (33 - 37 g/dL) 30.3 L RDW (11.5 - 15.5 %) 16.9 H Plt Count (130 - 400 x10 3/uL) 195 MPV (9.4 - 16.4 fL) 10.2 Neut % (Auto) (43 - 65 %) 81.4 H Lymph % (Auto) (20.5 - 45.5 %) 8.5 L Citrus % (Auto) (5.5 - 11.7 %) 6.7 Eos % (Auto) (0.9 - 2.9 %) 2.1 Baso % (Auto) (0.2 - 1.0 %) 0.7 Neut # (Auto) (2.2 - 4.8 x10 3/uL) 7.39 H Lymph # (Auto) (1.3 - 2.9 x10 3/uL) 0.77 L Citrus # (Auto) (0.3 - 0.8 x10 3/uL) 0.61 Eos # (Auto) (0.0 - 0.2 x10 3/uL) 0.19 Baso # (Auto) (0.0 - 0.1 x10 3/uL) 0.06 Immature Gran % (0.0 - 2.0 %) 0.6 Nucleated RBC % (0 - 1.0 %) 0.0 Radiology Data: Recent Impressions: CAT SCAN - CT HEAD/BRAIN W/O CONT 07/29 1125 Report Impression - Status: SIGNED Entered: 07/29/2020 1152 IMPRESSION: 1. No CT evidence of acute intracranial abnormal ity. 2. Focal dystropic cortical calcifications in th e left frontal lobe. Impression By: Lourdes2 - Denny Mohamud MD Diagnosis, Assessment Plan Problem List/A P: 1. Hypertensive urgency 2. Metabolic encephalopathy 3. Critical illness myopathy Free Text A P: Assessment 1. Acute encephalopathy - improving multifactori al - metabolic/hypertensive emergency/acute stroke 2. Lower extremity weakness- critical illness my opathy vs GBS 3. Acute ischemic strokes, suspect embolic sourc e, + PFO, b/l lower extremity dopplers negative 4. s/p PEA arrest 06/11/20 5. hypertensive emergency - improved 6. acute respiratory failure, s/p trach 7. type b aortic dissection 8. JENNIFER Plan -per Cardio - PFO closure soon -aggressive PT/OT -on asa, statin -pt refused LP for lower extremity weakness -continue treatment course -d/w pt, Dr Parson -will follow Electronically Signed by Seda Vega NP on 09/13 at 1336 RPT #:[id number] END OF REPORT 2020-07-29 08:58:00-00:00 [facility] REPORT#:[id number] REPORT STATUS: Signed DATE:07/29/20 TIME: 08 PATIENT: JORGE GOINS UNIT #: [id number] ROOM/BED: [address] : 86 AGE: 34 SEX: M ATTEND: Raphael Davila MD ADM AUTHOR: Seda Vega NP * ALL edits or amendments must be made on the el [employer]/computer document * Seda Vega 07/29/20 0858: Subjective Chief Complaint: no acute neuro events, BLE weakness Objective General VS: Last Documented: Result Date Time Pulse Ox 99 07/29 1045 B/P 163/79 07/29 1045 B/P Mean 107.1 07/29 1045 Pulse 59 07/29 1045 Resp 13 07/29 1045 Temp 98.1 07/29 0504 O2 Delivery Tracheostomy collar 07/28 232 O2 Flow Rate 5 07/28 2322 FiO2 21 07/25 0928 PATIENT WEIGHT: Weight (lb): 191 Weight (oz): 9.31 Weight (kg): 86.900 Medications Current Home Medications ALBUTEROL (PROAIR HFA 90 MCG/ACT 8.5 GM) 2 PUFF INH RTQ6H PRN PRN SOB ASPIRIN EC (ECOTRIN) 81 MG PO DAILY CARVEDILOL (COREG) 25 MG PO BID MEALS ACETAMINOPHEN/CODEINE (TYLENOL WITH CODE INE #4 300/60 MG) 1 TAB PO Q6H PRN PRN PAIN ATORVASTATIN (LIPITOR) 20 MG PO BEDTIME LOSARTAN (COZAAR) 100 MG PO DAILY NIFEdipine CC (ADALAT CC) 90 MG PO Q12HR HYDROCHLOROTHIAZIDE (HYDRODIURIL) 25 MG PO DAILY Active Meds + DC'd Last 24 Hrs Acetaminophen 650 MG Q6H PRN PRN PO (DC) Dextrose/Water 50 ML ONCE ONE IV (DC) Insulin Human Regular 10 UNIT ONCE ONE IV (DC) Sodium Polystyrene Sulfonate 15 GM ONCE ONE PO ( DC) Collagenase 1 APPLIC DAILY TOPICAL Sodium Polystyrene Sulfonate 30 GM ONCE ONE PO ( DC) Aspirin 81 MG DAILY PO Atorvastatin Calcium 40 MG DAILY PO Nifedipine 30 MG Q6HR PO Isosorbide Mononitrate 30 MG BID PO Acetaminophen 650 MG Q4H PRN PRN PO Famotidine 20 MG DAILY PO Labetalol HCl 600 MG Q8HR PO Heparin Sodium (Porcine) 5,000 UNIT Q12HR SUBQ Losartan Potassium 50 MG BID PO (DC) Heparin Sodium (Porcine) 2,000 UNIT DIALYSIS-DOS E BEFORE IV (CKD) Heparin Sodium (Porcine) 5,000 UNIT DIALYSIS-DOS E AFTER MISC Sodium Chloride 1,000 ML ASDIR PRN IV Labetalol HCl 10 MG Q6H PRN PRN IV Potassium Chloride 100 ML ASDIR PRN IV (DC) Potassium Bicarbonate/Citric Acid 20 MEQ ASDIR P O (DC) Potassium Chloride 100 ML ASDIR PRN IV (DC) Hydralazine HCl 100 MG Q8HR PO (DC) Dextrose/Water 25 ML ASDIR PRN IV Glucagon 1 MG ASDIR PRN IM Insulin Human Lispro LOW DOSE SCALE ASDIR SUBQ Physical Exam General appearance: alert, awake, no acute distr ess Results Findings/Data: Laboratory Tests 07/29 0915 Chemistry Sodium (137 - 145 mmol/L) 133 L Potassium (3.4 - 5.0 mmol/L) 6.2 H Chloride (98 - 107 mmol/L) 104 Carbon Dioxide (22 - 30 mmol/L) 23 BUN (9 - 20 mg/dL) 45 H Creatinine (0.7 - 1.3 mg/dL) 2.2 H Glomerular Filtr Rate (>60) 45 L Glucose (74 - 106 mg/dL) 92 Calcium (8.4 - 10.2 mg/dL) 8.9 Total Bilirubin (0.2 - 1.3 mg/dL) 0.8 Conjugated Bilirubin (0 - 0.3 mg/dL) 0 Unconjugated Bilirubin (0 - 1.1 mg/dL) 0.5 AST (15 - 46 U/L) 52 H ALT (0 - 34 U/L) 34 Total Alk Phosphatase (38 - 126 U/L) 85 Total Protein (6.3 - 8.2 g/dL) 6.3 Albumin (3.5 - 5.0 g/dL) 3.2 L Laboratory Tests 07/29 0915 Hematology WBC (5.0 - 12.0 x10 3/uL) 9.1 RBC (4.70 - 6.10 x10 6/uL) 2.70 L Hgb (14.0 - 18.0 g/dL) 7.6 L Hct (37.0 - 49.0 %) 25.1 L MCV (80 - 94 fL) 93 MCH (27 - 31 pg) 28.1 MCHC (33 - 37 g/dL) 30.3 L RDW (11.5 - 15.5 %) 16.9 H Plt Count (130 - 400 x10 3/uL) 195 MPV (9.4 - 16.4 fL) 10.2 Neut % (Auto) (43 - 65 %) 81.4 H Lymph % (Auto) (20.5 - 45.5 %) 8.5 L Citrus % (Auto) (5.5 - 11.7 %) 6.7 Eos % (Auto) (0.9 - 2.9 %) 2.1 Baso % (Auto) (0.2 - 1.0 %) 0.7 Neut # (Auto) (2.2 - 4.8 x10 3/uL) 7.39 H Lymph # (Auto) (1.3 - 2.9 x10 3/uL) 0.77 L Citrus # (Auto) (0.3 - 0.8 x10 3/uL) 0.61 Eos # (Auto) (0.0 - 0.2 x10 3/uL) 0.19 Baso # (Auto) (0.0 - 0.1 x10 3/uL) 0.06 Immature Gran % (0.0 - 2.0 %) 0.6 Nucleated RBC % (0 - 1.0 %) 0.0 Radiology Data: Recent Impressions: CAT SCAN - CT HEAD/BRAIN W/O CONT 07/29 1125 Report Impression - Status: SIGNED Entered: 07/29/2020 1152 IMPRESSION: 1. No CT evidence of acute intracranial abnormal ity. 2. Focal dystropic cortical calcifications in th e left frontal lobe. Impression By: LourdesHV2 - Denny Mohamud MD Diagnosis, Assessment Plan Problem List/A P: 1. Hypertensive urgency 2. Metabolic encephalopathy 3. Critical illness myopathy Free Text A P: Assessment 1. Acute encephalopathy - improving multifactori al - metabolic/hypertensive emergency/acute stroke 2. Lower extremity weakness- critical illness my opathy vs GBS 3. Acute ischemic strokes, suspect embolic sourc e, + PFO, b/l lower extremity dopplers negative 4. s/p PEA arrest 06/11/20 5. hypertensive emergency - improved 6. acute respiratory failure, s/p trach 7. type b aortic dissection 8. JENNIFER Plan -per Cardio - PFO closure soon -aggressive PT/OT -on asa, statin -pt refused LP for lower extremity weakness -continue treatment course -d/w pt, Dr Parson -will follow Jessica Parson 07/30/20 0947: Attestations Physician Attestation Agree w/findings plan: EMR reviewed 07/29/20, agree with the findings and plan as documented by Seda Vega NP Electronically Signed by Seda Vega NP on 09/13 at 1336 Electronically Signed by Jessica Parson MD on at 0918 RPT #:[id number] END OF REPORT 2020-07-28 20:31:00-00:[address] [facility] ([facility]) Nephrology Progress Note REPORT#:[id number] REPORT STATUS: Signed DATE:07/28/20 TIME: 2030 PATIENT: JORGE GOINS UNIT #: [id number] ROOM/BED: [address] : [birth year] AGE: 34 SEX: M ATTEND: Raphael Davila MD ADM AUTHOR: Jojo York MD * ALL edits or amendments must be made on the el [employer]/computer document * Subjective Comments: no new comp Objective General VS/I O: Vital Signs: Date Time Temp Pulse Resp B/P B/P Pulse O2 O2 Fl ow FiO2 Mean Ox Delivery Rate 07/28 1828 98.4 63 18 116/60 78.7 99 07/28 1500 66 132/55 81.0 07/28 1244 98.6 58 18 168/84 111.5 100 07/28 1101 59 161/82 108.2 07/28 0824 98.4 60 166/78 107.1 99 07/28 0803 98.4 60 18 184/88 120.1 98 07/28 0436 97.7 63 8 142/68 92.8 100 Room air 07/27 2346 98.4 62 19 136/70 92.2 94 Tracheostomy collar 24 hour I O ending at 0700: 07/28 0700 07/27 1900 Intake Total Output Total 1300 1850 Balance -1300 -1850 Output, Stool 100 400 Output, Urine 1200 1450 PATIENT WEIGHT: Weight (lb): 191 Weight (oz): 9.31 Weight (kg): 86.900 Medications Active Meds + DC'd Last 24 Hrs Collagenase 1 APPLIC DAILY TOPICAL Sodium Polystyrene Sulfonate 30 GM ONCE ONE PO ( DC) Dextrose/Water 25 ML ONCE ONE IV (DC) Insulin Human Regular 5 UNIT ONCE ONE IV (DC) Aspirin 81 MG DAILY PO Atorvastatin Calcium 40 MG DAILY PO Nifedipine 30 MG Q6HR PO Isosorbide Mononitrate 30 MG BID PO Acetaminophen 650 MG Q4H PRN PRN PO Famotidine 20 MG DAILY PO Labetalol HCl 600 MG Q8HR PO Heparin Sodium (Porcine) 5,000 UNIT Q12HR SUBQ Losartan Potassium 50 MG BID PO (DC) Heparin Sodium (Porcine) 2,000 UNIT DIALYSIS-DOS E BEFORE IV (CKD) Heparin Sodium (Porcine) 5,000 UNIT DIALYSIS-DOS E AFTER MISC Sodium Chloride 1,000 ML ASDIR PRN IV Labetalol HCl 10 MG Q6H PRN PRN IV Potassium Chloride 100 ML ASDIR PRN IV Potassium Bicarbonate/Citric Acid 20 MEQ ASDIR P O (CKD) Potassium Chloride 100 ML ASDIR PRN IV Hydralazine HCl 100 MG Q8HR PO (DC) Magnesium 100 ML ASDIR PRN IV (DC) Magnesium Sulfate 50 ML ASDIR PRN IV (DC) Magnesium Sulfate 100 ML ASDIR PRN IV (DC) Dextrose/Water 25 ML ASDIR PRN IV Glucagon 1 MG ASDIR PRN IM Insulin Human Lispro LOW DOSE SCALE ASDIR SUBQ Physical Exam General appearance: no acute distress ENT: moist mucous membranes Neck: no JVD, no masses or swelling Cardiovascular: normal heart sounds, regular rat e and rhythm Respiratory: aerating well, clear to auscultatio n Abdomen: normal bowel sounds, soft Extremities: no edema Musculoskeletal: decreased ROM 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 Results Findings/Data: Laboratory Tests 07/28 07/28 0430 0303 Chemistry Sodium (137 - 145 mmol/L) 134 L Potassium (3.4 - 5.0 mmol/L) 5.6 H Chloride (98 - 107 mmol/L) 105 Carbon Dioxide (22 - 30 mmol/L) 22 BUN (9 - 20 mg/dL) 54 H Creatinine (0.7 - 1.3 mg/dL) 2.7 H Glomerular Filtr Rate (>60) 35 L Glucose (74 - 106 mg/dL) 106 POC Glucose (74 - 106 MG/DL) 85 Calcium (8.4 - 10.2 mg/dL) 8.6 Total Bilirubin (0.2 - 1.3 mg/dL) 0.7 Conjugated Bilirubin (0 - 0.3 mg/dL) 0 Unconjugated Bilirubin (0 - 1.1 mg/dL) 0.3 AST (15 - 46 U/L) 40 ALT (0 - 34 U/L) 27 Total Alk Phosphatase (38 - 126 U/L) 78 Total Protein (6.3 - 8.2 g/dL) 5.9 L Albumin (3.5 - 5.0 g/dL) 3.0 L Laboratory Tests 07/28 0303 Hematology WBC (5.0 - 12.0 x10 3/uL) 8.9 RBC (4.70 - 6.10 x10 6/uL) 2.60 L Hgb (14.0 - 18.0 g/dL) 7.4 L Hct (37.0 - 49.0 %) 23.6 L MCV (80 - 94 fL) 91 MCH (27 - 31 pg) 28.5 MCHC (33 - 37 g/dL) 31.4 L RDW (11.5 - 15.5 %) 16.4 H Plt Count (130 - 400 x10 3/uL) 215 MPV (9.4 - 16.4 fL) 10.5 Neut % (Auto) (43 - 65 %) 79.9 H Lymph % (Auto) (20.5 - 45.5 %) 10.4 L Citrus % (Auto) (5.5 - 11.7 %) 6.4 Eos % (Auto) (0.9 - 2.9 %) 1.8 Baso % (Auto) (0.2 - 1.0 %) 0.8 Neut # (Auto) (2.2 - 4.8 x10 3/uL) 7.09 H Lymph # (Auto) (1.3 - 2.9 x10 3/uL) 0.92 L Citrus # (Auto) (0.3 - 0.8 x10 3/uL) 0.57 Eos # (Auto) (0.0 - 0.2 x10 3/uL) 0.16 Baso # (Auto) (0.0 - 0.1 x10 3/uL) 0.07 Immature Gran % (0.0 - 2.0 %) 0.7 Nucleated RBC % (0 - 1.0 %) 0.0 Diagnosis, Assessment Plan Free Text A P: JENNIFER hypotension AAA lactic acidosis severe metabolic acidosis- resolved Metabolic alkalosis - resolved Making good urine Mental status has significantly improved kayexalate for elevated k am labs at 2030 RPT #:[id number] END OF REPORT 2020-07-28 17:48:00-00:[address] [facility] ([facility]) Cardiology Progress Note REPORT#:[id number] REPORT STATUS: Signed DATE:07/28/20 TIME: 8 PATIENT: JORGE GOINS UNIT #: [id number] ROOM/BED: [address] : [birth year] AGE: 34 SEX: M ATTEND: Raphael Davila MD ADM AUTHOR: Giancarlo Phan MD * ALL edits or amendments must be made on the el [employer]/computer document * Subjective Free Text Subj Notes Free Text Subj Notes: Patient doing much better. He denies any acute i ssues. Objective Physical Exam Head/Eyes: atraumatic, clear cornea, EOMI, brooklynn l conjunctiva/sclera, normocephalic, PERRL, PERRLA ENT: normal nose, normal pharynx Neck: full range of motion, non-tender, normal thyroid, supple/no meningismus, no bruit/NL carotids, no JVD, no lymphadenopathy , no masses or swelling Cardiovascular: CV assessment: regular rate and rhythm Respiratory: clear to auscultation, no distress Abdomen: non-tender, normal bowel sounds , no distention, no guarding, no mass/ organomegaly, no pulsatile mass, no rebound Upper extremity: UE assessment: normal capillary refill, no timur a Lower extremity: LE assessment: normal capillary refill, no timur a Musculoskeletal: full range of motion, normal in spection 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 Hypertensive urgency/emergency - presented with severely elevated BP requiring 2 IV infusions, subsequently suffered PEA cardiac arrest - BP control improving - cont hydralazine 100mg Q8H, labetalol 400mg Q 8H, clonidine patch has been increased to 0.3 - nifedipine 30mg QID, patients blood pressure much better controlled - losartan has been started will cont to monito r 2. Cardiac arrest - PEA in etiology, pt became hypothermic and sub sequently bradycardic 3. Type B aortic dissection s/p EVAR - has residual descending aortic dissect ion extending into iliacs. No evidence of rupture on CTA. Reviewed by vascular surgery - appreciate assitance - optimal BP Control as above 4. Acute on chronic systolic heart failure -Improved significantly 5. Shock - resolved 6. JENNIFER on CKD -On dialysis 7. Acute hypoxic respiratory failure - now has tracheostomy- per ICU team 8. Stroke: - CT head and MRI with evidence of prior CVA - TTE with possible PFO -Plan to attempt to close PFO Monday o f this week. Will follow. Please call if questions. [facility] Cardiology Electronically Signed by Giancarlo Phan MD on 08/16 at 1749 RPT #:[id number] END OF REPORT 2020-07-28 16:23:00-00:00 [facility] Hospitalist Progress Note REPORT#:[id number] REPORT STATUS: Signed DATE:07/28/20 TIME: 1623 PATIENT: JORGE GOINS UNIT #: [id number] ROOM/BED: [address] : 86 AGE: 34 SEX: M ATTEND: Raphael Davila MD ADM AUTHOR: Tessa Wolfe MD * ALL edits or amendments must be made on the [employer]/computer document * Subjective Chief Complaint: pt seen no events over night no fever on TC no chest pain/sob Review of Systems All systems rev neg: except as marked Objective General VS/I O: Vital Signs: Date Time Temp Pulse Resp B/P B/P Pulse O2 O2 Fl ow FiO2 Mean Ox Delivery Rate 07/28 1500 66 132/55 81.0 07/28 1244 98.6 58 18 168/84 111.5 100 07/28 1101 59 161/82 108.2 07/28 0824 98.4 60 166/78 107.1 99 07/28 0803 98.4 60 18 184/88 120.1 98 07/28 0436 97.7 63 8 142/68 92.8 100 Room air 07/27 2346 98.4 62 19 136/70 92.2 94 Tracheostomy collar 07/27 2000 98.8 64 18 167/80 109.2 98 Tracheostomy collar 07/27 1822 57 143/65 91.0 07/27 1712 97.7 57 18 155/81 105.6 100 Room air 24 hour I O ending at 0700: 07/28 0700 07/27 1900 Intake Total Output Total 1300 1850 Balance -1300 -1850 Output, Stool 100 400 Output, Urine 1200 1450 PATIENT WEIGHT: Weight (lb): 191 Weight (oz): 9.31 Weight (kg): 86.900 Medications: Active Meds + DC'd Last 24 Hrs Collagenase 1 APPLIC DAILY TOPICAL Sodium Polystyrene Sulfonate 30 GM ONCE ONE PO ( DC) Dextrose/Water 25 ML ONCE ONE IV (DC) Insulin Human Regular 5 UNIT ONCE ONE IV (DC) Aspirin 81 MG DAILY PO Atorvastatin Calcium 40 MG DAILY PO Nifedipine 30 MG Q6HR PO Isosorbide Mononitrate 30 MG BID PO Acetaminophen 650 MG Q4H PRN PRN PO Famotidine 20 MG DAILY PO Labetalol HCl 600 MG Q8HR PO Heparin Sodium (Porcine) 5,000 UNIT Q12HR SUBQ Losartan Potassium 50 MG BID PO (DC) Heparin Sodium (Porcine) 2,000 UNIT DIALYSIS-DOS E BEFORE IV (CKD) Heparin Sodium (Porcine) 5,000 UNIT DIALYSIS-DOS E AFTER MISC Sodium Chloride 1,000 ML ASDIR PRN IV Labetalol HCl 10 MG Q6H PRN PRN IV Potassium Chloride 100 ML ASDIR PRN IV Potassium Bicarbonate/Citric Acid 20 MEQ ASDIR P O (DC) Potassium Chloride 100 ML ASDIR PRN IV (DC) Hydralazine HCl 100 MG Q8HR PO (DC) Magnesium 100 ML ASDIR PRN IV (DC) Magnesium Sulfate 50 ML ASDIR PRN IV (DC) Magnesium Sulfate 100 ML ASDIR PRN IV (DC) Dextrose/Water 25 ML ASDIR PRN IV Glucagon 1 MG ASDIR PRN IM Insulin Human Lispro LOW DOSE SCALE ASDIR SUBQ Physical Exam General appearance: alert, awake, oriented Head/Eyes: atraumatic Cardiovascular: normal heart sounds, regular rat e rhythm Respiratory: aerating well, clear to auscultatio n Abdomen: non-tender, normal bowel sounds, soft Extremities: no clubbing Results Findings/Data: Laboratory Tests 07/28 07/28 0430 0303 Chemistry Sodium (137 - 145 mmol/L) 134 L Potassium (3.4 - 5.0 mmol/L) 5.6 H Chloride (98 - 107 mmol/L) 105 Carbon Dioxide (22 - 30 mmol/L) 22 BUN (9 - 20 mg/dL) 54 H Creatinine (0.7 - 1.3 mg/dL) 2.7 H Glomerular Filtr Rate (>60) 35 L Glucose (74 - 106 mg/dL) 106 POC Glucose (74 - 106 MG/DL) 85 Calcium (8.4 - 10.2 mg/dL) 8.6 Total Bilirubin (0.2 - 1.3 mg/dL) 0.7 Conjugated Bilirubin (0 - 0.3 mg/dL) 0 Unconjugated Bilirubin (0 - 1.1 mg/dL) 0.3 AST (15 - 46 U/L) 40 ALT (0 - 34 U/L) 27 Total Alk Phosphatase (38 - 126 U/L) 78 Total Protein (6.3 - 8.2 g/dL) 5.9 L Albumin (3.5 - 5.0 g/dL) 3.0 L Laboratory Tests 07/28 0303 Hematology WBC (5.0 - 12.0 x10 3/uL) 8.9 RBC (4.70 - 6.10 x10 6/uL) 2.60 L Hgb (14.0 - 18.0 g/dL) 7.4 L Hct (37.0 - 49.0 %) 23.6 L MCV (80 - 94 fL) 91 MCH (27 - 31 pg) 28.5 MCHC (33 - 37 g/dL) 31.4 L RDW (11.5 - 15.5 %) 16.4 H Plt Count (130 - 400 x10 3/uL) 215 MPV (9.4 - 16.4 fL) 10.5 Neut % (Auto) (43 - 65 %) 79.9 H Lymph % (Auto) (20.5 - 45.5 %) 10.4 L Citrus % (Auto) (5.5 - 11.7 %) 6.4 Eos % (Auto) (0.9 - 2.9 %) 1.8 Baso % (Auto) (0.2 - 1.0 %) 0.8 Neut # (Auto) (2.2 - 4.8 x10 3/uL) 7.09 H Lymph # (Auto) (1.3 - 2.9 x10 3/uL) 0.92 L Citrus # (Auto) (0.3 - 0.8 x10 3/uL) 0.57 Eos # (Auto) (0.0 - 0.2 x10 3/uL) 0.16 Baso # (Auto) (0.0 - 0.1 x10 3/uL) 0.07 Immature Gran % (0.0 - 2.0 %) 0.7 Nucleated RBC % (0 - 1.0 %) 0.0 Diagnosis, Assessment Plan Free Text DxA P Notes Free text DxA P notes: pt seen at bedsite,sitting in bed comfortably 1. Acute encephalopathy - improving ...multifact orial 2. Lower extremity weakness- critical illness my opathy vs GBS 3. Acute ischemic strokes, suspect embolic sourc e, + PFO, b/l lower extremity dopplers negative 4. s/p PEA arrest 06/11/20 5. hypertensive emergency - improved,con tinue hydralazine,labetalol,clonidine, nifedipine,losartan cardio on board 6. acute respiratory failure, s/p trach...pulmon kenan on board 7. type b aortic dissection 8. JENNIFER.....nephrology on board .......ho ld off HD for now,ok to start losartan 9.Stroke....MRI multiple ischemic cva.......mau morejon per neuro 10.systolic CHF ...improving .....TTE with possi ble PFO, closure of PFO later this week gi ppx: pepcid dvt ppx: heparin we will f/u d/w RN D50 and insulin ordered in am repeat K Electronically Signed by Tessa Wolfe MD on at 2343 RPT #:[id number] END OF REPORT 2020-07-28 13:46:00-00:00 [facility]) Critical Care Progress Note REPORT#:[id number] REPORT STATUS: Signed DATE:07/28/20 TIME: 134 PATIENT: JORGE GOINS UNIT #: [id number] [address] [birth year] AGE: 34 SEX: M ATTEND: Raphael Davila MD ADM AUTHOR: Mathew Lizama MD R1 * ALL edits or amendments must be made on the el [employer]/computer document * Subjective Chief complaint: trach collar HPI: RT attempted to cap trach overnight but pt dyspn eic. Pt adjusted trach collar overnight. Trach readjusted to proper po sition without issues. Pt satting well on RA. Discussed with RT about capping the trach , will attempt today if tolerable. Will place PMV otherwise. Review of Systems Constitutional: Denies: chills, fever. Respiratory: Denies: COATES (dyspnea on exertion), non productiv e cough, productive cough ( sputum), SOB. Cardiovascular: Denies: chest pain, palpitations. GI: Denies: abdominal pain, nausea, vomiting. Neuro: Reports: focal weakness (b/l LE, no change), wea kness. Denies: headache, lightheaded, numbness. All systems rev neg: except as marked Objective General VS/I O Last Documented: Result Date Time Pulse Ox 99 07/28 182 B/P 116/60 07/28 182 B/P Mean 78.7 07/28 1827 Temp 36.9 07/28 182 Pulse 63 07/28 1828 Resp 18 07/28 1828 O2 Delivery Room air 07/28 0436 FiO2 21 07/25 0928 O2 Flow Rate 5 07/24 0850 24 hour I O ending at 0700: 07/28 0700 07/27 1900 Intake Total Output Total 1300 1850 Balance -1300 -1850 Output, Stool 100 400 Output, Urine 1200 1450 PATIENT WEIGHT: Weight (lb): 191 Weight (oz): 9.31 Weight (kg): 86.900 Medications: Active Meds + DC'd Last 24 Hrs Collagenase 1 APPLIC DAILY TOPICAL Sodium Polystyrene Sulfonate 30 GM ONCE ONE PO ( DC) Dextrose/Water 25 ML ONCE ONE IV (DC) Insulin Human Regular 5 UNIT ONCE ONE IV (DC) Aspirin 81 MG DAILY PO Atorvastatin Calcium 40 MG DAILY PO Nifedipine 30 MG Q6HR PO Isosorbide Mononitrate 30 MG BID PO Acetaminophen 650 MG Q4H PRN PRN PO Famotidine 20 MG DAILY PO Labetalol HCl 600 MG Q8HR PO Heparin Sodium (Porcine) 5,000 UNIT Q12HR SUBQ Losartan Potassium 50 MG BID PO (DC) Heparin Sodium (Porcine) 2,000 UNIT DIALYSIS-DOS E BEFORE IV (CKD) Heparin Sodium (Porcine) 5,000 UNIT DIALYSIS-DOS E AFTER MISC Sodium Chloride 1,000 ML ASDIR PRN IV Labetalol HCl 10 MG Q6H PRN PRN IV Potassium Chloride 100 ML ASDIR PRN IV Potassium Bicarbonate/Citric Acid 20 MEQ ASDIR P O (CKD) Potassium Chloride 100 ML ASDIR PRN IV Hydralazine HCl 100 MG Q8HR PO (DC) Magnesium 100 ML ASDIR PRN IV (DC) Magnesium Sulfate 50 ML ASDIR PRN IV (DC) Magnesium Sulfate 100 ML ASDIR PRN IV (DC) Dextrose/Water 25 ML ASDIR PRN IV Glucagon 1 MG ASDIR PRN IM Insulin Human Lispro LOW DOSE SCALE ASDIR SUBQ Physical Exam General appearance: alert, awake, oriented, no a cute distress, trach collar Neck: tracheostomy (w/ collar) Cardiovascular: normal capillary refill, normal heart sounds, regular rate and rhythm Respiratory: aerating well, clear to auscultatio n, no distress Abdomen: soft, non-tender Extremities: moves all, normal capillary refill Neuro/RADIOTELEGRAPHIST: focal weakness (b/l LE), alert, orien kar X 3, CNII-XII intact Results Findings/data: Laboratory Tests 07/28 07/28 07/27 0430 0303 1958 Chemistry Sodium (137 - 145 mmol/L) 134 L Potassium (3.4 - 5.0 mmol/L) 5.6 H Chloride (98 - 107 mmol/L) 105 Carbon Dioxide (22 - 30 mmol/L) 22 BUN (9 - 20 mg/dL) 54 H Creatinine (0.7 - 1.3 mg/dL) 2.7 H Glomerular Filtr Rate (>60) 35 L Glucose (74 - 106 mg/dL) 106 POC Glucose (74 - 106 MG/DL) 85 80 Calcium (8.4 - 10.2 mg/dL) 8.6 Total Bilirubin (0.2 - 1.3 mg/dL) 0.7 Conjugated Bilirubin (0 - 0.3 mg/dL) 0 Unconjugated Bilirubin (0 - 1.1 mg/dL) 0.3 AST (15 - 46 U/L) 40 ALT (0 - 34 U/L) 27 Total Alk Phosphatase (38 - 126 U/L) 78 Total Protein (6.3 - 8.2 g/dL) 5.9 L Albumin (3.5 - 5.0 g/dL) 3.0 L Laboratory Tests 07/28 030 Hematology WBC (5.0 - 12.0 x10 3/uL) 8.9 RBC (4.70 - 6.10 x10 6/uL) 2.60 L Hgb (14.0 - 18.0 g/dL) 7.4 L Hct (37.0 - 49.0 %) 23.6 L MCV (80 - 94 fL) 91 MCH (27 - 31 pg) 28.5 MCHC (33 - 37 g/dL) 31.4 L RDW (11.5 - 15.5 %) 16.4 H Plt Count (130 - 400 x10 3/uL) 215 MPV (9.4 - 16.4 fL) 10.5 Neut % (Auto) (43 - 65 %) 79.9 H Lymph % (Auto) (20.5 - 45.5 %) 10.4 L Citrus % (Auto) (5.5 - 11.7 %) 6.4 Eos % (Auto) (0.9 - 2.9 %) 1.8 Baso % (Auto) (0.2 - 1.0 %) 0.8 Neut # (Auto) (2.2 - 4.8 x10 3/uL) 7.09 H Lymph # (Auto) (1.3 - 2.9 x10 3/uL) 0.92 L Citrus # (Auto) (0.3 - 0.8 x10 3/uL) 0.57 Eos # (Auto) (0.0 - 0.2 x10 3/uL) 0.16 Baso # (Auto) (0.0 - 0.1 x10 3/uL) 0.07 Immature Gran % (0.0 - 2.0 %) 0.7 Nucleated RBC % (0 - 1.0 %) 0.0 Laboratory Tests 07/28/20 0303: [Embedded Image Not Available] Diagnosis, Assessment Plan Free text A P: 34 year old male with history of aortic dissecti on s/p EVAR came in for hypertensive urgency A/P: Neuro # stroke # b/l LE weakness - MRI multiple ischemic cva - A Ox3 - MRI spine ok - Neuro consulted - may need LP/CSF analysis for LE weakness - discussed PFO closure with cards, scheduled f or later this week - PT/OT consulted Pulm -s/p trach -On TC - will attempt to cap trach or place PMV valve if not tolerable, discussed with RT CV #s/p Cardiac Arrest - PEA hypotensive. ROSC achieved after 9 minutes - likely from cardiogenic shock EF 30-34% - Aortic dissection ruled out from CTA chest, ab domen and pelvis #hx of EVAR for aortic dissection and h/o endole ak in the past - per vascular surgery - HTN better controlled, off cardene # PFO - cards consulted - PFO closure later this week # Fever - positive blood culture - respiratory source'morenaley clabsi - abx Renal # Acute renal failure - nephro consulted - hold on HD given good urine output gi ppx: pepcid diet: renal dvt ppx: heparin Electronically Signed by Mathew Lizama MD R1 on at 1839 RPT #:[id number] END OF REPORT 2020-07-28 13:46:00-00:[address] [facility] ([facility]) Critical Care Progress Note REPORT#:[id number] REPORT STATUS: Signed DATE:07/28/20 TIME: 134 PATIENT: JORGE GOINS UNIT #: [id number] ROOM/BED: [address] : 86 AGE: 34 SEX: M ATTEND: Raphael Davila MD ADM AUTHOR: Mathew Lizama MD R1 * ALL edits or amendments must be made on the rimidi/computer document * Mathew Lizama 07/28/20 1346: Subjective Chief complaint: trach collar HPI: RT attempted to cap trach overnight but pt dyspn eic. Pt adjusted trach collar overnight. Trach readjusted to proper po sition without issues. Pt satting well on RA. Discussed with RT about capping the trach , will attempt today if tolerable. Will place PMV otherwise. Review of Systems Constitutional: Denies: chills, fever. Respiratory: Denies: COATES (dyspnea on exertion), non productiv e cough, productive cough ( sputum), SOB. Cardiovascular: Denies: chest pain, palpitations. GI: Denies: abdominal pain, nausea, vomiting. Neuro: Reports: focal weakness (b/l LE, no change), wea kness. Denies: headache, lightheaded, numbness. All systems rev neg: except as marked Objective General VS/I O Last Documented: Result Date Time Pulse Ox 99 07/28 1827 B/P 116/60 07/28 1827 B/P Mean 78.7 07/28 1827 Temp 36.9 07/28 1827 Pulse 63 07/28 1827 Resp 18 07/28 1827 O2 Delivery Room air 07/28 0436 FiO2 21 07/25 0928 O2 Flow Rate 5 07/24 0850 24 hour I O ending at 0700: 07/28 0700 07/27 1900 Intake Total Output Total 1300 1850 Balance -1300 -1850 Output, Stool 100 400 Output, Urine 1200 1450 PATIENT WEIGHT: Weight (lb): 191 Weight (oz): 9.31 Weight (kg): 86.900 Medications: Active Meds + DC'd Last 24 Hrs Collagenase 1 APPLIC DAILY TOPICAL Sodium Polystyrene Sulfonate 30 GM ONCE ONE PO ( DC) Dextrose/Water 25 ML ONCE ONE IV (DC) Insulin Human Regular 5 UNIT ONCE ONE IV (DC) Aspirin 81 MG DAILY PO Atorvastatin Calcium 40 MG DAILY PO Nifedipine 30 MG Q6HR PO Isosorbide Mononitrate 30 MG BID PO Acetaminophen 650 MG Q4H PRN PRN PO Famotidine 20 MG DAILY PO Labetalol HCl 600 MG Q8HR PO Heparin Sodium (Porcine) 5,000 UNIT Q12HR SUBQ Losartan Potassium 50 MG BID PO (DC) Heparin Sodium (Porcine) 2,000 UNIT DIALYSIS-DOS E BEFORE IV (CKD) Heparin Sodium (Porcine) 5,000 UNIT DIALYSIS-DOS E AFTER MISC Sodium Chloride 1,000 ML ASDIR PRN IV Labetalol HCl 10 MG Q6H PRN PRN IV Potassium Chloride 100 ML ASDIR PRN IV Potassium Bicarbonate/Citric Acid 20 MEQ ASDIR P O (CKD) Potassium Chloride 100 ML ASDIR PRN IV Hydralazine HCl 100 MG Q8HR PO (DC) Magnesium 100 ML ASDIR PRN IV (DC) Magnesium Sulfate 50 ML ASDIR PRN IV (DC) Magnesium Sulfate 100 ML ASDIR PRN IV (DC) Dextrose/Water 25 ML ASDIR PRN IV Glucagon 1 MG ASDIR PRN IM Insulin Human Lispro LOW DOSE SCALE ASDIR SUBQ Physical Exam General appearance: alert, awake, oriented, no a cute distress, trach collar Neck: tracheostomy (w/ collar) Cardiovascular: normal capillary refill, normal heart sounds, regular rate and rhythm Respiratory: aerating well, clear to auscultatio n, no distress Abdomen: soft, non-tender Extremities: moves all, normal capillary refill Neuro/RADIOTELEGRAPHIST: focal weakness (b/l LE), alert, orien kar X 3, CNII-XII intact Results Findings/data: Laboratory Tests 07/288 Chemistry Sodium (137 - 145 mmol/L) 134 L Potassium (3.4 - 5.0 mmol/L) 5.6 H Chloride (98 - 107 mmol/L) 105 Carbon Dioxide (22 - 30 mmol/L) 22 BUN (9 - 20 mg/dL) 54 H Creatinine (0.7 - 1.3 mg/dL) 2.7 H Glomerular Filtr Rate (>60) 35 L Glucose (74 - 106 mg/dL) 106 POC Glucose (74 - 106 MG/DL) 85 80 Calcium (8.4 - 10.2 mg/dL) 8.6 Total Bilirubin (0.2 - 1.3 mg/dL) 0.7 Conjugated Bilirubin (0 - 0.3 mg/dL) 0 Unconjugated Bilirubin (0 - 1.1 mg/dL) 0.3 AST (15 - 46 U/L) 40 ALT (0 - 34 U/L) 27 Total Alk Phosphatase (38 - 126 U/L) 78 Total Protein (6.3 - 8.2 g/dL) 5.9 L Albumin (3.5 - 5.0 g/dL) 3.0 L Laboratory Tests 07/28 302 Hematology WBC (5.0 - 12.0 x10 3/uL) 8.9 RBC (4.70 - 6.10 x10 6/uL) 2.60 L Hgb (14.0 - 18.0 g/dL) 7.4 L Hct (37.0 - 49.0 %) 23.6 L MCV (80 - 94 fL) 91 MCH (27 - 31 pg) 28.5 MCHC (33 - 37 g/dL) 31.4 L RDW (11.5 - 15.5 %) 16.4 H Plt Count (130 - 400 x10 3/uL) 215 MPV (9.4 - 16.4 fL) 10.5 Neut % (Auto) (43 - 65 %) 79.9 H Lymph % (Auto) (20.5 - 45.5 %) 10.4 L Citrus % (Auto) (5.5 - 11.7 %) 6.4 Eos % (Auto) (0.9 - 2.9 %) 1.8 Baso % (Auto) (0.2 - 1.0 %) 0.8 Neut # (Auto) (2.2 - 4.8 x10 3/uL) 7.09 H Lymph # (Auto) (1.3 - 2.9 x10 3/uL) 0.92 L Citrus # (Auto) (0.3 - 0.8 x10 3/uL) 0.57 Eos # (Auto) (0.0 - 0.2 x10 3/uL) 0.16 Baso # (Auto) (0.0 - 0.1 x10 3/uL) 0.07 Immature Gran % (0.0 - 2.0 %) 0.7 Nucleated RBC % (0 - 1.0 %) 0.0 Laboratory Tests 07/28/20 0303: [Embedded Image Not Available] Diagnosis, Assessment Plan Free text A P: 34 year old male with history of aortic dissecti on s/p EVAR came in for hypertensive urgency A/P: Neuro # stroke # b/l LE weakness - MRI multiple ischemic cva - A Ox3 - MRI spine ok - Neuro consulted - may need LP/CSF analysis for LE weakness - discussed PFO closure with cards, scheduled f or later this week - PT/OT consulted Pulm -s/p trach -On TC - will attempt to cap trach or place PMV valve if not tolerable, discussed with RT CV #s/p Cardiac Arrest - PEA hypotensive. ROSC achieved after 9 minutes - likely from cardiogenic shock EF 30-34% - Aortic dissection ruled out from CTA chest, ab domen and pelvis #hx of EVAR for aortic dissection and h/o endole ak in the past - per vascular surgery - HTN better controlled, off cardene # PFO - cards consulted - PFO closure later this week # Fever - positive blood culture - respiratory source'unlikley clabsi - abx Renal # Acute renal failure - nephro consulted - hold on HD given good urine output gi ppx: pepcid diet: renal dvt ppx: heparin Sarva,Sivatej 07/29/20 0914: Attestations Physician Attestation Agree w/findings plan: I have personally interviewed and examin ed the patient 07/28/2020. All charts, labs, and imaging studies were reviewed. I agree with the resident's findings, exam, and plan. Lungs are clear Tracheostomy tube repositioned. Able to suction well. Restart capping trials. Electronically Signed by Mathew Lizama MD R1 on at 1839 Electronically Signed by Edy Olmedo MD on 09/13 at 0914 RPT #:[id number] END OF REPORT 2020-07-28 09:17:00-00:00 [facility] Neurology Progress Note REPORT#:[id number] REPORT STATUS: Signed DATE:07/28/20 TIME: 916 PATIENT: JORGE GOINS UNIT #: [id number] ROOM/BED: [address] : 86 AGE: 34 SEX: M ATTEND: Raphael Davila MD ADM AUTHOR: Seda Vega BRAZING MACHINE TENDER * ALL edits or amendments must be made on the rimidi/computer document * Subjective Chief Complaint: no acute neuro events, awake alert, follow comma nds, BLE severe weakness Objective General VS: Last Documented: Result Date Time Pulse Ox 100 07/28 1244 B/P 168/84 07/28 1244 B/P Mean 111.5 07/28 1244 Temp 98.6 07/28 1244 Pulse 58 07/28 1244 Resp 18 07/28 1244 O2 Delivery Room air 07/28 0436 FiO2 21 07/25 0928 O2 Flow Rate 5 07/24 0850 PATIENT WEIGHT: Weight (lb): 191 Weight (oz): 9.31 Weight (kg): 86.900 Medications Current Home Medications ALBUTEROL (PROAIR HFA 90 MCG/ACT 8.5 GM) 2 PUFF INH RTQ6H PRN PRN SOB ASPIRIN EC (ECOTRIN) 81 MG PO DAILY CARVEDILOL (COREG) 25 MG PO BID MEALS ACETAMINOPHEN/CODEINE (TYLENOL WITH CODE INE #4 300/60 MG) 1 TAB PO Q6H PRN PRN PAIN ATORVASTATIN (LIPITOR) 20 MG PO BEDTIME LOSARTAN (COZAAR) 100 MG PO DAILY NIFEdipine CC (ADALAT CC) 90 MG PO Q12HR HYDROCHLOROTHIAZIDE (HYDRODIURIL) 25 MG PO DAILY Active Meds + DC'd Last 24 Hrs Dextrose/Water 25 ML ONCE ONE IV (DC) Insulin Human Regular 5 UNIT ONCE ONE IV (DC) Aspirin 81 MG DAILY PO Atorvastatin Calcium 40 MG DAILY PO Nifedipine 30 MG Q6HR PO Isosorbide Mononitrate 30 MG BID PO Acetaminophen 650 MG Q4H PRN PRN PO Famotidine 20 MG DAILY PO Labetalol HCl 600 MG Q8HR PO Heparin Sodium (Porcine) 5,000 UNIT Q12HR SUBQ Losartan Potassium 50 MG BID PO Heparin Sodium (Porcine) 2,000 UNIT DIALYSIS-DOS E BEFORE IV (CKD) Heparin Sodium (Porcine) 5,000 UNIT DIALYSIS-DOS E AFTER MISC Sodium Chloride 1,000 ML ASDIR PRN IV Labetalol HCl 10 MG Q6H PRN PRN IV Potassium Chloride 100 ML ASDIR PRN IV Potassium Bicarbonate/Citric Acid 20 MEQ ASDIR P O (CKD) Potassium Chloride 100 ML ASDIR PRN IV Hydralazine HCl 100 MG Q8HR PO Magnesium 100 ML ASDIR PRN IV (DC) Magnesium Sulfate 50 ML ASDIR PRN IV (DC) Magnesium Sulfate 100 ML ASDIR PRN IV (DC) Dextrose/Water 25 ML ASDIR PRN IV Glucagon 1 MG ASDIR PRN IM Insulin Human Lispro LOW DOSE SCALE ASDIR SUBQ Physical Exam General appearance: alert, awake, no acute distr ess Head/Eyes: atraumatic, normocephalic ENT: moist mucosal membranes Neck: non-tender, no masses or swelling Cardiovascular: irregular rate and rhythm, murmu r Respiratory: on oxygen Abdomen: non-tender, normal bowel sounds, soft Results Findings/Data: Laboratory Tests 07/28 07/28 07/27 07/27 0430 0303 1958 1710 Chemistry Sodium (137 - 145 mmol/L) 134 L Potassium (3.4 - 5.0 mmol/L) 5.6 H Chloride (98 - 107 mmol/L) 105 Carbon Dioxide (22 - 30 mmol/L) 22 BUN (9 - 20 mg/dL) 54 H Creatinine (0.7 - 1.3 mg/dL) 2.7 H Glomerular Filtr Rate (>60) 35 L Glucose (74 - 106 mg/dL) 106 POC Glucose (74 - 106 MG/DL) 85 80 91 Calcium (8.4 - 10.2 mg/dL) 8.6 Total Bilirubin (0.2 - 1.3 mg/dL) 0.7 Conjugated Bilirubin (0 - 0.3 mg/dL) 0 Unconjugated Bilirubin (0 - 1.1 mg/dL) 0.3 AST (15 - 46 U/L) 40 ALT (0 - 34 U/L) 27 Total Alk Phosphatase (38 - 126 U/L) 78 Total Protein (6.3 - 8.2 g/dL) 5.9 L Albumin (3.5 - 5.0 g/dL) 3.0 L Laboratory Tests 07/28 0303 Hematology WBC (5.0 - 12.0 x10 3/uL) 8.9 RBC (4.70 - 6.10 x10 6/uL) 2.60 L Hgb (14.0 - 18.0 g/dL) 7.4 L Hct (37.0 - 49.0 %) 23.6 L MCV (80 - 94 fL) 91 MCH (27 - 31 pg) 28.5 MCHC (33 - 37 g/dL) 31.4 L RDW (11.5 - 15.5 %) 16.4 H Plt Count (130 - 400 x10 3/uL) 215 MPV (9.4 - 16.4 fL) 10.5 Neut % (Auto) (43 - 65 %) 79.9 H Lymph % (Auto) (20.5 - 45.5 %) 10.4 L Citrus % (Auto) (5.5 - 11.7 %) 6.4 Eos % (Auto) (0.9 - 2.9 %) 1.8 Baso % (Auto) (0.2 - 1.0 %) 0.8 Neut # (Auto) (2.2 - 4.8 x10 3/uL) 7.09 H Lymph # (Auto) (1.3 - 2.9 x10 3/uL) 0.92 L Citrus # (Auto) (0.3 - 0.8 x10 3/uL) 0.57 Eos # (Auto) (0.0 - 0.2 x10 3/uL) 0.16 Baso # (Auto) (0.0 - 0.1 x10 3/uL) 0.07 Immature Gran % (0.0 - 2.0 %) 0.7 Nucleated RBC % (0 - 1.0 %) 0.0 Diagnosis, Assessment Plan Problem List/A P: 1. Hypertensive urgency 2. Metabolic encephalopathy 3. Critical illness myopathy Free Text A P: Assessment 1. Acute encephalopathy - improving multifactori al - metabolic/hypertensive emergency/acute stroke 2. Lower extremity weakness- critical illness my opathy vs GBS 3. Acute ischemic strokes, suspect embolic sourc e, + PFO, b/l lower extremity dopplers negative 4. s/p PEA arrest 06/11/20 5. hypertensive emergency - improved 6. acute respiratory failure, s/p trach 7. type b aortic dissection 8. JENNIFER Plan -per Cardio - PFO closure soon -aggressive PT/OT -on asa, statin -considering LP for CSF anal ysis for lower extremity weakness, will discuss with pt -continue care plan -d/w pt, Dr Parson -will follow Electronically Signed by Seda Vega NP on 08/16 at 1401 RPT #:[id number] END OF REPORT 2020-07-28 09:17:00-00:00 [facility] Neurology Progress Note REPORT#:[id number] REPORT STATUS: Signed DATE:07/28/20 TIME: 916 PATIENT: JORGE GOINS UNIT #: [id number] ROOM/BED: [address] : 86 AGE: 34 SEX: M ATTEND: Raphael Davila MD ADM AUTHOR: Seda Vega NP * ALL edits or amendments must be made on the el [employer]/computer document * Seda Vega 07/28/20 0917: Subjective Chief Complaint: no acute neuro events, awake alert, follow comma nds, BLE severe weakness Objective General VS: Last Documented: Result Date Time Pulse Ox 100 07/28 1244 B/P 168/84 07/28 1244 B/P Mean 111.5 07/28 1244 Temp 98.6 07/28 1244 Pulse 58 07/28 1244 Resp 18 07/28 1244 O2 Delivery Room air 07/28 0436 FiO2 21 07/25 0928 O2 Flow Rate 5 07/24 0850 PATIENT WEIGHT: Weight (lb): 191 Weight (oz): 9.31 Weight (kg): 86.900 Medications Current Home Medications ALBUTEROL (PROAIR HFA 90 MCG/ACT 8.5 GM) 2 PUFF INH RTQ6H PRN PRN SOB ASPIRIN EC (ECOTRIN) 81 MG PO DAILY CARVEDILOL (COREG) 25 MG PO BID MEALS ACETAMINOPHEN/CODEINE (TYLENOL WITH CODE INE #4 300/60 MG) 1 TAB PO Q6H PRN PRN PAIN ATORVASTATIN (LIPITOR) 20 MG PO BEDTIME LOSARTAN (COZAAR) 100 MG PO DAILY NIFEdipine CC (ADALAT CC) 90 MG PO Q12HR HYDROCHLOROTHIAZIDE (HYDRODIURIL) 25 MG PO DAILY Active Meds + DC'd Last 24 Hrs Dextrose/Water 25 ML ONCE ONE IV (DC) Insulin Human Regular 5 UNIT ONCE ONE IV (DC) Aspirin 81 MG DAILY PO Atorvastatin Calcium 40 MG DAILY PO Nifedipine 30 MG Q6HR PO Isosorbide Mononitrate 30 MG BID PO Acetaminophen 650 MG Q4H PRN PRN PO Famotidine 20 MG DAILY PO Labetalol HCl 600 MG Q8HR PO Heparin Sodium (Porcine) 5,000 UNIT Q12HR SUBQ Losartan Potassium 50 MG BID PO Heparin Sodium (Porcine) 2,000 UNIT DIALYSIS-DOS E BEFORE IV (CKD) Heparin Sodium (Porcine) 5,000 UNIT DIALYSIS-DOS E AFTER MISC Sodium Chloride 1,000 ML ASDIR PRN IV Labetalol HCl 10 MG Q6H PRN PRN IV Potassium Chloride 100 ML ASDIR PRN IV Potassium Bicarbonate/Citric Acid 20 MEQ ASDIR P O (CKD) Potassium Chloride 100 ML ASDIR PRN IV Hydralazine HCl 100 MG Q8HR PO Magnesium 100 ML ASDIR PRN IV (DC) Magnesium Sulfate 50 ML ASDIR PRN IV (DC) Magnesium Sulfate 100 ML ASDIR PRN IV (DC) Dextrose/Water 25 ML ASDIR PRN IV Glucagon 1 MG ASDIR PRN IM Insulin Human Lispro LOW DOSE SCALE ASDIR SUBQ Physical Exam General appearance: alert, awake, no acute distr ess Head/Eyes: atraumatic, normocephalic ENT: moist mucosal membranes Neck: non-tender, no masses or swelling Cardiovascular: irregular rate and rhythm, murmu r Respiratory: on oxygen Abdomen: non-tender, normal bowel sounds, soft Results Findings/Data: Laboratory Tests 07/28 07/28 07/27 07/27 0430 0303 1958 1710 Chemistry Sodium (137 - 145 mmol/L) 134 L Potassium (3.4 - 5.0 mmol/L) 5.6 H Chloride (98 - 107 mmol/L) 105 Carbon Dioxide (22 - 30 mmol/L) 22 BUN (9 - 20 mg/dL) 54 H Creatinine (0.7 - 1.3 mg/dL) 2.7 H Glomerular Filtr Rate (>60) 35 L Glucose (74 - 106 mg/dL) 106 POC Glucose (74 - 106 MG/DL) 85 80 91 Calcium (8.4 - 10.2 mg/dL) 8.6 Total Bilirubin (0.2 - 1.3 mg/dL) 0.7 Conjugated Bilirubin (0 - 0.3 mg/dL) 0 Unconjugated Bilirubin (0 - 1.1 mg/dL) 0.3 AST (15 - 46 U/L) 40 ALT (0 - 34 U/L) 27 Total Alk Phosphatase (38 - 126 U/L) 78 Total Protein (6.3 - 8.2 g/dL) 5.9 L Albumin (3.5 - 5.0 g/dL) 3.0 L Laboratory Tests 07/28 0303 Hematology WBC (5.0 - 12.0 x10 3/uL) 8.9 RBC (4.70 - 6.10 x10 6/uL) 2.60 L Hgb (14.0 - 18.0 g/dL) 7.4 L Hct (37.0 - 49.0 %) 23.6 L MCV (80 - 94 fL) 91 MCH (27 - 31 pg) 28.5 MCHC (33 - 37 g/dL) 31.4 L RDW (11.5 - 15.5 %) 16.4 H Plt Count (130 - 400 x10 3/uL) 215 MPV (9.4 - 16.4 fL) 10.5 Neut % (Auto) (43 - 65 %) 79.9 H Lymph % (Auto) (20.5 - 45.5 %) 10.4 L Citrus % (Auto) (5.5 - 11.7 %) 6.4 Eos % (Auto) (0.9 - 2.9 %) 1.8 Baso % (Auto) (0.2 - 1.0 %) 0.8 Neut # (Auto) (2.2 - 4.8 x10 3/uL) 7.09 H Lymph # (Auto) (1.3 - 2.9 x10 3/uL) 0.92 L Citrus # (Auto) (0.3 - 0.8 x10 3/uL) 0.57 Eos # (Auto) (0.0 - 0.2 x10 3/uL) 0.16 Baso # (Auto) (0.0 - 0.1 x10 3/uL) 0.07 Immature Gran % (0.0 - 2.0 %) 0.7 Nucleated RBC % (0 - 1.0 %) 0.0 Diagnosis, Assessment Plan Problem List/A P: 1. Hypertensive urgency 2. Metabolic encephalopathy 3. Critical illness myopathy Free Text A P: Assessment 1. Acute encephalopathy - improving multifactori al - metabolic/hypertensive emergency/acute stroke 2. Lower extremity weakness- critical illness my opathy vs GBS 3. Acute ischemic strokes, suspect embolic sourc e, + PFO, b/l lower extremity dopplers negative 4. s/p PEA arrest 06/11/20 5. hypertensive emergency - improved 6. acute respiratory failure, s/p trach 7. type b aortic dissection 8. JENNIFER Plan -per Cardio - PFO closure soon -aggressive PT/OT -on asa, statin -considering LP for CSF anal ysis for lower extremity weakness, will discuss with pt -continue care plan -d/w pt, Dr Parson -will follow Jessica Parson 07/29/20 1034: Attestations Physician Attestation Agree w/findings plan: On 07/28/20, EMR reviewed the findings and plan as documented by Seda Vega NP Electronically Signed by Seda Vega NP on 08/16 at 1401 Electronically Signed by Jessica Parson MD on at 1034 RPT #:[id number] END OF REPORT 2020-07-27 20:40:00-00:[address] [facility] ([facility]) Nephrology Progress Note REPORT#:[id number] REPORT STATUS: Signed DATE:07/27/20 TIME: 2039 PATIENT: JORGE GOINS UNIT #: [id number] ROOM/BED: [address] : 86 AGE: 34 SEX: M ATTEND: Raphael Davila MD ADM AUTHOR: Jojo York MD * ALL edits or amendments must be made on the [employer]idi/computer document * Subjective Comments: events noted Objective General VS/I O: Vital Signs: Date Time Temp Pulse Resp B/P B/P Pulse O2 O2 F low FiO2 Mean Ox Delivery Rate 07/27 2000 98.8 64 18 167/80 109.2 98 Tracheostomy collar 07/27 1822 57 143/65 91.0 07/27 1712 97.7 57 18 155/81 105.6 100 Room air 07/27 1400 59 145/71 95.3 100 07/27 1204 97.5 56 18 131/77 95.2 100 Room air 07/27 0943 59 137/62 86.8 100 07/27 0732 98.4 56 18 142/70 93.8 100 Room air 07/27 0428 98.2 62 16 142/75 97.6 100 Room air 07/27 0002 98.6 63 16 143/74 97.0 100 Room air 24 hour I O ending at 0700: 07/27 0700 07/26 1900 Intake Total 480 Output Total 1825 1700 Balance -1345 -1700 Intake, Oral 480 Output, Urine 1825 1700 PATIENT WEIGHT: Weight (lb): 191 Weight (oz): 9.31 Weight (kg): 86.900 Medications Active Meds + DC'd Last 24 Hrs Aspirin 81 MG DAILY PO Atorvastatin Calcium 40 MG DAILY PO Nifedipine 30 MG Q6HR PO Isosorbide Mononitrate 30 MG BID PO Acetaminophen 650 MG Q4H PRN PRN PO Famotidine 20 MG DAILY PO Labetalol HCl 600 MG Q8HR PO Heparin Sodium (Porcine) 5,000 UNIT Q12HR SUBQ Losartan Potassium 50 MG BID PO Heparin Sodium (Porcine) 2,000 UNIT DIALYSIS-DOS E BEFORE IV (CKD) Heparin Sodium (Porcine) 5,000 UNIT DIALYSIS-DOS E AFTER MISC Sodium Chloride 1,000 ML ASDIR PRN IV Clonidine HCl 0.3 MG Q7D TRANSDERM (DC) Labetalol HCl 10 MG Q6H PRN PRN IV Potassium Chloride 100 ML ASDIR PRN IV Potassium Bicarbonate/Citric Acid 20 MEQ ASDIR P O (CKD) Potassium Chloride 100 ML ASDIR PRN IV Hydralazine HCl 100 MG Q8HR PO Magnesium 100 ML ASDIR PRN IV Magnesium Sulfate 50 ML ASDIR PRN IV Magnesium Sulfate 100 ML ASDIR PRN IV Dextrose/Water 25 ML ASDIR PRN IV Glucagon 1 MG ASDIR PRN IM Insulin Human Lispro LOW DOSE SCALE ASDIR SUBQ Physical Exam General appearance: no acute distress ENT: moist mucous membranes Neck: no JVD, no masses or swelling Cardiovascular: normal heart sounds, regular rat e and rhythm Respiratory: aerating well, clear to auscultatio n Abdomen: normal bowel sounds, soft Extremities: no edema Musculoskeletal: decreased ROM 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 Results Findings/Data: Laboratory Tests 07/27 07/27 07/27 1710 1201 0430 Chemistry POC Glucose (74 - 106 MG/DL) 91 95 106 Diagnosis, Assessment Plan Free Text A P: JENNIFER hypotension AAA lactic acidosis severe metabolic acidosis- resolved Metabolic alkalosis - resolved Making good urine Mental status has significantly improved Hold off on further dialysis A.m. lab at 2041 RPT #:[id number] END OF REPORT 2020-07-27 15:17:00-00:00 [facility]) Cardiology Progress Note REPORT#:[id number] REPORT STATUS: Signed DATE:07/27/20 TIME: 151 PATIENT: JORGE GOINS UNIT #: [id number] ROOM/BED: [address] : [birth year] AGE: 34 SEX: M ATTEND: Raphael Davila MD ADM AUTHOR: Giancarlo Phan MD * ALL edits or amendments must be made on the el [employer]/computer document * Subjective Free Text Subj Notes Free Text Subj Notes: Patient states that he is doing much better. He is able to communicate a lot better. He is not moving his lower though. But h e denies any chest pain or shortness of breath otherwise really no acute co mplaints at this time. Objective Physical Exam Head/Eyes: atraumatic, clear cornea, EOMI, brook[place] l conjunctiva/sclera, normocephalic, PERRL, PERRLA ENT: normal nose, normal pharynx Neck: full range of motion, non-tender, normal thyroid, supple/no meningismus, no bruit/NL carotids, no JVD, no lymphadenopathy , no masses or swelling Cardiovascular: CV assessment: regular rate and rhythm Respiratory: clear to auscultation, no distress Abdomen: non-tender, normal bowel sounds , no distention, no guarding, no mass/ organomegaly, no pulsatile mass, no rebound Upper extremity: UE assessment: normal capillary refill, no timur a Lower extremity: LE assessment: normal capillary refill, no timur a Musculoskeletal: full range of motion, normal in spection 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 Hypertensive urgency/emergency - presented with severely elevated BP requiring 2 IV infusions, subsequently suffered PEA cardiac arrest - BP control improving - cont hydralazine 100mg Q8H, labetalol 400mg Q 8H, clonidine patch has been increased to 0.3 - nifedipine 30mg QID, patients blood pressure much better controlled - losartan has been started will cont to monito r 2. Cardiac arrest - PEA in etiology, pt became hypothermic and sub sequently bradycardic 3. Type B aortic dissection s/p EVAR - has residual descending aortic dissect ion extending into iliacs. No evidence of rupture on CTA. Reviewed by vascular surgery - appreciate assitance - optimal BP Control as above 4. Acute on chronic systolic heart failure -Improved significantly 5. Shock - resolved 6. JENNIFER on CKD -On dialysis 7. Acute hypoxic respiratory failure - now has tracheostomy- per ICU team 8. Stroke: - CT head and MRI with evidence of prior CVA - TTE with possible PFO - discsused with Nurology and they are okay wit h PFO closure during this admission, Will proceed this week. Will follow. Please call if questions. [facility] Cardiology Electronically Signed by Giancarlo Phan MD on 07/16 at 1521 RPT #:[id number] END OF REPORT 2020-07-27 14:01:00-00:00 [facility] Critical Care Progress Note REPORT#:[id number] REPORT STATUS: Signed DATE:07/27/20 TIME: 1401 PATIENT: JORGE GOINS UNIT #: [id number] ROOM/BED: [address] : 86 AGE: 34 SEX: M ATTEND: Raphael Davila MD ADM AUTHOR: Mathew Lizama MD R1 * ALL edits or amendments must be made on the rimidi/computer document * Subjective Chief Complaint: on TC mental status stable BP better controlled HPI: NAEO. Satting well on TC w/ RA. No new c omplaints. Cards discussed PFO closure with pt. Will likely downsize trach later this w [place]. Review of Systems ROS Constitutional: Denies: chills, fever. Respiratory: Denies: COATES (dyspnea on exertion), non productiv e cough, productive cough ( sputum), SOB. Cardiovascular: Denies: chest pain, COATES (dyspnea on exertion), e benton. GI: Denies: abdominal pain, constipation, diarrhea, nausea, vomiting. Neuro: focal weakness (b/l LE), weakness. Denies: numbn ess. All systems rev neg: except as marked Objective General VS/I O Last Documented: Result Date Time Pulse Ox 100 07/27 1711 B/P 155/81 07/27 1711 B/P Mean 105.6 07/27 1711 O2 Delivery Room air 07/27 1711 Temp 36.5 07/27 1711 Pulse 57 07/27 1711 Resp 18 07/27 1711 FiO2 21 07/25 0928 O2 Flow Rate 5 07/24 0850 24 hour I O ending at 0700: 07/27 0700 07/26 1900 Intake Total 480 Output Total 1825 1700 Balance -1345 -1700 Intake, Oral 480 Output, Urine 1825 1700 PATIENT WEIGHT: Weight (lb): 191 Weight (oz): 9.31 Weight (kg): 86.900 Medications: Active Meds + DC'd Last 24 Hrs Aspirin 81 MG DAILY PO Atorvastatin Calcium 40 MG DAILY PO Nifedipine 30 MG Q6HR PO Isosorbide Mononitrate 30 MG BID PO Acetaminophen 650 MG Q4H PRN PRN PO Famotidine 20 MG DAILY PO Labetalol HCl 600 MG Q8HR PO Heparin Sodium (Porcine) 5,000 UNIT Q12HR SUBQ Losartan Potassium 50 MG BID PO Heparin Sodium (Porcine) 2,000 UNIT DIALYSIS-DOS E BEFORE IV (CKD) Heparin Sodium (Porcine) 5,000 UNIT DIALYSIS-DOS E AFTER MISC Sodium Chloride 1,000 ML ASDIR PRN IV Clonidine HCl 0.3 MG Q7D TRANSDERM (DC) Labetalol HCl 10 MG Q6H PRN PRN IV Potassium Chloride 100 ML ASDIR PRN IV Potassium Bicarbonate/Citric Acid 20 MEQ ASDIR P O (CKD) Potassium Chloride 100 ML ASDIR PRN IV Hydralazine HCl 100 MG Q8HR PO Magnesium 100 ML ASDIR PRN IV Magnesium Sulfate 50 ML ASDIR PRN IV Magnesium Sulfate 100 ML ASDIR PRN IV Dextrose/Water 25 ML ASDIR PRN IV Glucagon 1 MG ASDIR PRN IM Insulin Human Lispro LOW DOSE SCALE ASDIR SUBQ Physical Exam General appearance: alert, awake, oriented, no a cute distress, trach collar Head/Eyes: atraumatic, normocephalic Neck: full range of motion Cardiovascular: normal heart sounds, normal S1 S 2, normal rate and rhythm Respiratory/Chest: aerating well, clear to auscu ltation, trach collar Abdomen: soft, non-tender, normal bowel sounds, no distention Extremities: no edema 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, oriented X 3 Results Findings/Data: Laboratory Tests 07/27 07/27 07/27 07/26 1710 1201 0430 1952 Chemistry POC Glucose (74 - 106 MG/DL) 91 95 106 109 H Diagnosis, Assessment Plan Free text A P: 34 year old male with history of aortic dissecti on s/p EVAR came in for hypertensive urgency A/P: Neuro # stroke # b/l LE weakness - MRI multiple ischemic cva - A Ox3 - MRI spine ok - Neuro consulted - may need LP/CSF analysis for LE weakness - discussed PFO closure with cards, scheduled f or later this week - PT/OT consulted Pulm -s/p trach -On TC - will likely downsize trach later this week CV #s/p Cardiac Arrest - PEA hypotensive. ROSC achieved after 9 minutes - likely from cardiogenic shock EF 30-34% - Aortic dissection ruled out from CTA chest, ab domen and pelvis #hx of EVAR for aortic dissection and h/o endole ak in the past - per vascular surgery - HTN better controlled, off cardene # PFO - cards consulted - PFO closure later this week # Fever - positive blood culture - respiratory source'morenaholly clabsi - abx Renal # Acute renal failure - nephro consulted - hold on HD given good urine output gi ppx: pepcid diet: renal dvt ppx: heparin Electronically Signed by Mathew Lizama MD R1 on at 1824 RPT #:[id number] END OF REPORT 2020-07-27 14:01:00-00:00 [facility] Critical Care Progress Note REPORT#:[id number] REPORT STATUS: Signed DATE:07/27/20 TIME: 1401 PATIENT: JORGE GOINS UNIT #: [id number] ROOM/BED: [address] : 86 AGE: 34 SEX: M ATTEND: Raphael Davila MD ADM AUTHOR: Mathew Lizama MD R1 * ALL edits or amendments must be made on the rimidi/computer document * Mathew Lizama T 07/27/20 1401: Subjective Chief Complaint: on TC mental status stable BP better controlled HPI: NAEO. Satting well on TC w/ RA. No new c omplaints. Cards discussed PFO closure with pt. Will likely downsize trach later this w [place]. Review of Systems ROS Constitutional: Denies: chills, fever. Respiratory: Denies: COATES (dyspnea on exertion), non productiv e cough, productive cough ( sputum), SOB. Cardiovascular: Denies: chest pain, COATES (dyspnea on exertion), e benton. GI: Denies: abdominal pain, constipation, diarrhea, nausea, vomiting. Neuro: focal weakness (b/l LE), weakness. Denies: numbn ess. All systems rev neg: except as marked Objective General VS/I O Last Documented: Result Date Time Pulse Ox 100 07/27 1711 B/P 155/81 07/27 1711 B/P Mean 105.6 07/27 1711 O2 Delivery Room air 07/27 1711 Temp 36.5 07/27 1711 Pulse 57 07/27 1711 Resp 18 07/27 1711 FiO2 21 07/25 0928 O2 Flow Rate 5 07/24 0850 24 hour I O ending at 0700: 07/27 0700 07/26 1900 Intake Total 480 Output Total 1825 1700 Balance -1345 -1700 Intake, Oral 480 Output, Urine 1825 1700 PATIENT WEIGHT: Weight (lb): 191 Weight (oz): 9.31 Weight (kg): 86.900 Medications: Active Meds + DC'd Last 24 Hrs Aspirin 81 MG DAILY PO Atorvastatin Calcium 40 MG DAILY PO Nifedipine 30 MG Q6HR PO Isosorbide Mononitrate 30 MG BID PO Acetaminophen 650 MG Q4H PRN PRN PO Famotidine 20 MG DAILY PO Labetalol HCl 600 MG Q8HR PO Heparin Sodium (Porcine) 5,000 UNIT Q12HR SUBQ Losartan Potassium 50 MG BID PO Heparin Sodium (Porcine) 2,000 UNIT DIALYSIS-DOS E BEFORE IV (CKD) Heparin Sodium (Porcine) 5,000 UNIT DIALYSIS-DOS E AFTER MISC Sodium Chloride 1,000 ML ASDIR PRN IV Clonidine HCl 0.3 MG Q7D TRANSDERM (DC) Labetalol HCl 10 MG Q6H PRN PRN IV Potassium Chloride 100 ML ASDIR PRN IV Potassium Bicarbonate/Citric Acid 20 MEQ ASDIR P O (CKD) Potassium Chloride 100 ML ASDIR PRN IV Hydralazine HCl 100 MG Q8HR PO Magnesium 100 ML ASDIR PRN IV Magnesium Sulfate 50 ML ASDIR PRN IV Magnesium Sulfate 100 ML ASDIR PRN IV Dextrose/Water 25 ML ASDIR PRN IV Glucagon 1 MG ASDIR PRN IM Insulin Human Lispro LOW DOSE SCALE ASDIR SUBQ Physical Exam General appearance: alert, awake, oriented, no a cute distress, trach collar Head/Eyes: atraumatic, normocephalic Neck: full range of motion Cardiovascular: normal heart sounds, normal S1 S 2, normal rate and rhythm Respiratory/Chest: aerating well, clear to auscu ltation, trach collar Abdomen: soft, non-tender, normal bowel sounds, no distention Extremities: no edema 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, oriented X 3 Results Findings/Data: Laboratory Tests 07/27 07/27 07/27 07/26 1710 1201 0430 1951 Chemistry POC Glucose (74 - 106 MG/DL) 91 95 106 109 H Diagnosis, Assessment Plan Free text A P: 34 year old male with history of aortic dissecti on s/p EVAR came in for hypertensive urgency A/P: Neuro # stroke # b/l LE weakness - MRI multiple ischemic cva - A Ox3 - MRI spine ok - Neuro consulted - may need LP/CSF analysis for LE weakness - discussed PFO closure with cards, scheduled f or later this week - PT/OT consulted Pulm -s/p trach -On TC - will likely downsize trach later this week CV #s/p Cardiac Arrest - PEA hypotensive. ROSC achieved after 9 minutes - likely from cardiogenic shock EF 30-34% - Aortic dissection ruled out from CTA chest, ab domen and pelvis #hx of EVAR for aortic dissection and h/o endole ak in the past - per vascular surgery - HTN better controlled, off cardene # PFO - cards consulted - PFO closure later this week # Fever - positive blood culture - respiratory source'unlikley clabsi - abx Renal # Acute renal failure - nephro consulted - hold on HD given good urine output gi ppx: pepcid diet: renal dvt ppx: heparin [place] 07/27/20 2226: Attestations Attestation needed: teaching physician Teaching Physician Attestation F/U visit w/ resident: I saw the patient with the resident and . . . agree with the resident's findings and plan. doing well on TC Paraplegia dvt porphylaxis Electronically Signed by Mathew Lizama MD R1 on at 1824 at 2227 RPT #:[id number] END OF REPORT 2020-07-27 13:45:00-00:00 [facility] Neurology Progress Note REPORT#:[id number] REPORT STATUS: Signed DATE:07/27/20 TIME: 1345 PATIENT: JORGE GOINS UNIT #: [id number] ROOM/BED: [address] : 86 AGE: 34 SEX: M ATTEND: Raphael Davila MD ADM AUTHOR: Jessica Parson MD * ALL edits or amendments must be made on the [employer] document * Subjective Comments: Patient denies pain Says he worked with PT yesterday No other complaints Objective General VS: Last Documented: Result Date Time Pulse Ox 100 07/27 1204 B/P 131/77 07/27 1204 B/P Mean 95.2 07/27 1204 O2 Delivery Room air 07/27 1204 Temp 36.4 07/27 1204 Pulse 56 07/27 1204 Resp 18 07/27 1204 FiO2 21 07/25 0928 O2 Flow Rate 5 07/24 0850 PATIENT WEIGHT: Weight (lb): 191 Weight (oz): 9.31 Weight (kg): 86.900 exam laying in bed, NAD NEURO awake alert and oriented follows simple commands face symmetric EOMI left hand slightly weaker than right power 3-4/5 in the upper extremities 0/5 in the lower extremities with absent reflexe s reports he can feel light touch in the lower ext remities Medications Current Home Medications ALBUTEROL (PROAIR HFA 90 MCG/ACT 8.5 GM) 2 PUFF INH RTQ6H PRN PRN SOB ASPIRIN EC (ECOTRIN) 81 MG PO DAILY CARVEDILOL (COREG) 25 MG PO BID MEALS ACETAMINOPHEN/CODEINE (TYLENOL WITH CODE INE #4 300/60 MG) 1 TAB PO Q6H PRN PRN PAIN ATORVASTATIN (LIPITOR) 20 MG PO BEDTIME LOSARTAN (COZAAR) 100 MG PO DAILY NIFEdipine CC (ADALAT CC) 90 MG PO Q12HR HYDROCHLOROTHIAZIDE (HYDRODIURIL) 25 MG PO DAILY Active Meds + DC'd Last 24 Hrs Aspirin 81 MG DAILY PO Atorvastatin Calcium 40 MG DAILY PO Nifedipine 30 MG Q6HR PO Isosorbide Mononitrate 30 MG BID PO Acetaminophen 650 MG Q4H PRN PRN PO Famotidine 20 MG DAILY PO Labetalol HCl 600 MG Q8HR PO Heparin Sodium (Porcine) 5,000 UNIT Q12HR SUBQ Losartan Potassium 50 MG BID PO Heparin Sodium (Porcine) 2,000 UNIT DIALYSIS-DOS E BEFORE IV (CKD) Heparin Sodium (Porcine) 5,000 UNIT DIALYSIS-DOS E AFTER MISC Sodium Chloride 1,000 ML ASDIR PRN IV Clonidine HCl 0.3 MG Q7D TRANSDERM (DC) Labetalol HCl 10 MG Q6H PRN PRN IV Potassium Chloride 100 ML ASDIR PRN IV Potassium Bicarbonate/Citric Acid 20 MEQ ASDIR P O (CKD) Potassium Chloride 100 ML ASDIR PRN IV Hydralazine HCl 100 MG Q8HR PO Magnesium 100 ML ASDIR PRN IV Magnesium Sulfate 50 ML ASDIR PRN IV Magnesium Sulfate 100 ML ASDIR PRN IV Dextrose/Water 25 ML ASDIR PRN IV Glucagon 1 MG ASDIR PRN IM Insulin Human Lispro LOW DOSE SCALE ASDIR SUBQ Results Findings/Data: Laboratory Tests 07/27 07/27 07/26 07/26 1201 0430 1952 1606 Chemistry POC Glucose (74 - 106 MG/DL) 95 106 109 H 112 H Diagnosis, Assessment Plan Problem List/A P: 1. Hypertensive urgency 2. Metabolic encephalopathy 3. Critical illness myopathy Free Text A P: Assessment 1. Acute encephalopathy - improving multifactori al - metabolic/hypertensive emergency/acute stroke 2. Lower extremity weakness- critical illness my opathy vs GBS 3. Acute ischemic strokes, suspect embolic sourc e, + PFO, b/l lower extremity dopplers negative 4. s/p PEA arrest 06/11/20 5. hypertensive emergency - improved 6. acute respiratory failure, s/p trach 7. type b aortic dissection 8. JENNIFER Plan: -agree with PFO closure -aggressive PT/OT -may neeed LP for CSF analysis for lower extremi ty weakness -medical management per primary will follow Electronically Signed by Jessica Parson MD on at 1350 RPT #:[id number] END OF REPORT 2020-07-27 10:56:00-00:[address] [facility] ([facility]) Hospitalist Progress Note REPORT#:[id number] REPORT STATUS: Signed DATE:07/27/20 TIME: 1056 PATIENT: JORGE GOINS UNIT #: [id number] ROOM/BED: [address] : 86 AGE: 34 SEX: M ATTEND: Raphael Davila MD ADM AUTHOR: Tessa Wolfe MD * ALL edits or amendments must be made on the el [employer] document * Subjective Chief Complaint: pt seen no events over night no fever on TC Review of Systems All systems rev neg: except as marked Objective General VS/I O: Vital Signs: Date Time Temp Pulse Resp B/P B/P Pulse O2 O2 F low FiO2 Mean Ox Delivery Rate 07/27 0943 59 137/62 86.8 100 07/27 0732 98.4 56 18 142/70 93.8 100 Room air 07/27 0428 98.2 62 16 142/75 97.6 100 Room air 07/27 0002 98.6 63 16 143/74 97.0 100 Room air 07/26 1955 98.1 65 28 159/78 104.7 99 Room air 07/26 1553 98.1 58 19 161/85 110.3 99 Room air 07/26 1112 98.4 54 22 148/62 0.0 100 24 hour I O ending at 0700: 07/27 0700 07/26 1900 Intake Total 480 Output Total 1825 1700 Balance -1345 -1700 Intake, Oral 480 Output, Urine 1825 1700 PATIENT WEIGHT: Weight (lb): 191 Weight (oz): 9.31 Weight (kg): 86.900 Medications: Active Meds + DC'd Last 24 Hrs Aspirin 81 MG DAILY PO Atorvastatin Calcium 40 MG DAILY PO Nifedipine 30 MG Q6HR PO Isosorbide Mononitrate 30 MG BID PO Acetaminophen 650 MG Q4H PRN PRN PO Famotidine 20 MG DAILY PO Labetalol HCl 600 MG Q8HR PO Heparin Sodium (Porcine) 5,000 UNIT Q12HR SUBQ Losartan Potassium 50 MG BID PO Heparin Sodium (Porcine) 2,000 UNIT DIALYSIS-DOS E BEFORE IV (CKD) Heparin Sodium (Porcine) 5,000 UNIT DIALYSIS-DOS E AFTER MISC Sodium Chloride 1,000 ML ASDIR PRN IV Clonidine HCl 0.3 MG Q7D TRANSDERM (DC) Labetalol HCl 10 MG Q6H PRN PRN IV Potassium Chloride 100 ML ASDIR PRN IV Potassium Bicarbonate/Citric Acid 20 MEQ ASDIR P O (CKD) Potassium Chloride 100 ML ASDIR PRN IV Hydralazine HCl 100 MG Q8HR PO Magnesium 100 ML ASDIR PRN IV Magnesium Sulfate 50 ML ASDIR PRN IV Magnesium Sulfate 100 ML ASDIR PRN IV Dextrose/Water 25 ML ASDIR PRN IV Glucagon 1 MG ASDIR PRN IM Insulin Human Lispro LOW DOSE SCALE ASDIR SUBQ Physical Exam General appearance: alert, awake Head/Eyes: atraumatic Cardiovascular: normal heart sounds, regular rat e rhythm Respiratory: aerating well, clear to auscultatio n Extremities: no clubbing Results Findings/Data: Laboratory Tests 07/27 07/27 07/26 1201 0430 195 Chemistry POC Glucose (74 - 106 MG/DL) 95 106 109 H Diagnosis, Assessment Plan Free Text DxA P Notes Free text DxA P notes: pt seen at bedsite,sitting in bed comfortable 1. Acute encephalopathy - improving ...multifact orial 2. Lower extremity weakness- critical illness my opathy vs GBS 3. Acute ischemic strokes, suspect embolic sourc e, + PFO, b/l lower extremity dopplers negative 4. s/p PEA arrest 06/11/20 5. hypertensive emergency - improved,con tinue hydralazine,labetalol,clonidine, nifedipine,losartan cardio on board 6. acute respiratory failure, s/p trach...pulmon kenan on board 7. type b aortic dissection 8. JENNIFER.....nephrology on board .......ho ld off HD for now,ok to start losartan 9.Stroke....MRI multiple ischemic cva.......mau morejon per neuro 10.systolic CHF ...improving .....TTE wi th possible PFO, closure of PFO during current hospitalization per cardiology gi ppx: pepcid dvt ppx: heparin we will f/u continue PT/OT CHECK CBC,CMP Electronically Signed by Tessa Wolfe MD on at 1700 RPT #:[id number] END OF REPORT 2020-07-26 14:29:00-00:[address] [facility] ([facility]) Nephrology Progress Note REPORT#:[id number] REPORT STATUS: Signed DATE:07/26/20 TIME: 9 PATIENT: JORGE GOINS UNIT #: [id number] ROOM/BED: [address] : 86 AGE: 34 SEX: M ATTEND: Raphael Davila MD ADM AUTHOR: Jojo York MD * ALL edits or amendments must be made on the el [employer]/computer document * Subjective Comments: Doing well Denies any new complaints Objective General VS/I O: Vital Signs: Date Time Temp Pulse Resp B/P B/P Pulse O2 O2 F low FiO2 Mean Ox Delivery Rate 07/26 1112 98.4 54 22 148/62 0.0 100 07/26 0738 97.3 56 22 157/77 103.6 100 07/26 0423 98.2 60 26 147/65 92.3 99 Room air 07/26 0014 98.2 56 16 191/95 127.1 100 Room air 07/25 1936 98.1 53 12 158/80 106.3 100 Room air 07/25 1655 56 18 157/74 101.9 100 07/25 1501 155/77 103 24 hour I O ending at 0700: 07/26 0700 07/25 1900 Intake Total 1440 Output Total 1650 1400 Balance -1650 40 Intake, Oral 1200 Intake, Oral 240 Supplement Output, Urine 1650 1400 Patient 86.9 kg Weight Weight Bed scale Measurement Method PATIENT WEIGHT: Weight (lb): 191 Weight (oz): 9.31 Weight (kg): 86.900 Medications Active Meds + DC'd Last 24 Hrs Aspirin 81 MG DAILY PO Atorvastatin Calcium 40 MG DAILY PO Nifedipine 30 MG Q6HR PO Isosorbide Mononitrate 30 MG BID PO Isosorbide Mononitrate 30 MG BID PO (DC) Acetaminophen 650 MG Q4H PRN PRN PO Famotidine 20 MG DAILY PO Labetalol HCl 600 MG Q8HR PO Heparin Sodium (Porcine) 5,000 UNIT Q12HR SUBQ Losartan Potassium 50 MG BID PO Nifedipine 30 MG Q6HR FEED-TUBE (DC) Prednisone 30 MG DAILY PO (DC) Heparin Sodium (Porcine) 2,000 UNIT DIALYSIS-DOS E BEFORE IV (CKD) Heparin Sodium (Porcine) 5,000 UNIT DIALYSIS-DOS E AFTER MISC Sodium Chloride 1,000 ML ASDIR PRN IV Clonidine HCl 0.3 MG Q7D TRANSDERM (CKD) Nicardipine HCl 200 ML TITRATE IV (DC) Labetalol HCl 10 MG Q6H PRN PRN IV Acetaminophen 650 MG Q4H PRN PRN FEED-TUBE (DC) Isosorbide Mononitrate 30 MG BID FEED-TUBE (DC) Potassium Chloride 100 ML ASDIR PRN IV Potassium Bicarbonate/Citric Acid 20 MEQ ASDIR P O (CKD) Potassium Chloride 100 ML ASDIR PRN IV Hydralazine HCl 100 MG Q8HR PO Magnesium 100 ML ASDIR PRN IV Magnesium Sulfate 50 ML ASDIR PRN IV Magnesium Sulfate 100 ML ASDIR PRN IV Aspirin 81 MG DAILY FEED-TUBE (DC) Atorvastatin Calcium 40 MG DAILY FEED-TUBE (DC) Dextrose/Water 25 ML ASDIR PRN IV Glucagon 1 MG ASDIR PRN IM Insulin Human Lispro LOW DOSE SCALE ASDIR SUBQ Physical Exam General appearance: no acute distress ENT: moist mucous membranes Neck: no JVD, no masses or swelling Cardiovascular: normal heart sounds, regular rat e and rhythm Respiratory: aerating well, clear to auscultatio n Abdomen: normal bowel sounds, soft Extremities: no edema Musculoskeletal: decreased ROM 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 Diagnosis, Assessment Plan Free Text A P: JENNIFER hypotension AAA lactic acidosis severe metabolic acidosis- resolved Metabolic alkalosis - resolved Making good urine Mental status has significantly improved Hold off on further dialysis A.m. lab at 1429 RPT #:[id number] END OF REPORT 2020-07-26 12:31:00-00:00 [facility]) Cardiology Progress Note REPORT#:[id number] REPORT STATUS: Signed DATE:07/26/20 TIME: 1231 PATIENT: JORGE GOINS UNIT #: [id number] ROOM/BED: [address] : 86 AGE: 34 SEX: M ATTEND: Raphael Davila MD ADM AUTHOR: Abhi Ortiz DO * ALL edits or amendments must be made on the el [employer]/computer document * Subjective Free Text Subj Notes Free Text Subj Notes: no acute issuse. Discussed with pt about PFO emma sure Objective General VS/I O: 24 hour I O ending at 0700: 07/26 0700 07/25 1900 Intake Total 1440 Output Total 1650 1400 Balance -1650 40 Intake, Oral 1200 Intake, Oral 240 Supplement Output, Urine 1650 1400 Patient 86.9 kg Weight Weight Bed scale Measurement Method Vital Signs: Date Time Temp Pulse Resp B/P B/P Pulse O2 O2 F low FiO2 Mean Ox Delivery Rate 07/26 1112 98.4 54 22 148/62 0.0 100 07/26 0738 97.3 56 22 157/77 103.6 100 07/26 0423 98.2 60 26 147/65 92.3 99 Room air 07/26 0014 98.2 56 16 191/95 127.1 100 Room air 07/25 1936 98.1 53 12 158/80 106.3 100 Room air 07/25 1655 56 18 157/74 101.9 100 07/25 1501 155/77 103 PATIENT WEIGHT: Weight (lb): 191 Weight (oz): 9.31 Weight (kg): 86.900 Medications: Active Meds + DC'd Last 24 Hrs Aspirin 81 MG DAILY PO Atorvastatin Calcium 40 MG DAILY PO Nifedipine 30 MG Q6HR PO Isosorbide Mononitrate 30 MG BID PO Isosorbide Mononitrate 30 MG BID PO (DC) Acetaminophen 650 MG Q4H PRN PRN PO Famotidine 20 MG DAILY PO Labetalol HCl 600 MG Q8HR PO Heparin Sodium (Porcine) 5,000 UNIT Q12HR SUBQ Losartan Potassium 50 MG BID PO Nifedipine 30 MG Q6HR FEED-TUBE (DC) Prednisone 30 MG DAILY PO Heparin Sodium (Porcine) 2,000 UNIT DIALYSIS-DOS E BEFORE IV (CKD) Heparin Sodium (Porcine) 5,000 UNIT DIALYSIS-DOS E AFTER MISC Sodium Chloride 1,000 ML ASDIR PRN IV Clonidine HCl 0.3 MG Q7D TRANSDERM (CKD) Nicardipine HCl 200 ML TITRATE IV (DC) Labetalol HCl 10 MG Q6H PRN PRN IV Acetaminophen 650 MG Q4H PRN PRN FEED-TUBE (DC) Isosorbide Mononitrate 30 MG BID FEED-TUBE (DC) Potassium Chloride 100 ML ASDIR PRN IV Potassium Bicarbonate/Citric Acid 20 MEQ ASDIR P O (CKD) Potassium Chloride 100 ML ASDIR PRN IV Hydralazine HCl 100 MG Q8HR PO Magnesium 100 ML ASDIR PRN IV Magnesium Sulfate 50 ML ASDIR PRN IV Magnesium Sulfate 100 ML ASDIR PRN IV Aspirin 81 MG DAILY FEED-TUBE (DC) Atorvastatin Calcium 40 MG DAILY FEED-TUBE (DC) Albuterol/Ipratropium 3 ML RTQ6H INH (DC) Dextrose/Water 25 ML ASDIR PRN IV Glucagon 1 MG ASDIR PRN IM Insulin Human Lispro LOW DOSE SCALE ASDIR SUBQ Physical Exam General appearance: alert, awake Head/Eyes: atraumatic, clear cornea, EOMI, brook[place]nn l conjunctiva/sclera, normocephalic, PERRL, PERRLA ENT: normal nose, normal pharynx Neck: full range of motion, non-tender, normal thyroid, supple/no meningismus, no bruit/NL carotids, no JVD, no lymphadenopathy , no masses or swelling Cardiovascular: CV assessment: regular rate and rhythm Respiratory: clear to auscultation, no distress Abdomen: non-tender, normal bowel sounds , no distention, no guarding, no mass/ organomegaly, no pulsatile mass, no rebound Upper extremity: UE assessment: normal capillary refill, no timur a Lower extremity: LE assessment: normal capillary refill, no timur a Musculoskeletal: full range of motion, normal in spection 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 Hypertensive urgency/emergency - presented with severely elevated BP requiring 2 IV infusions, subsequently suffered PEA cardiac arrest - BP control improving - cont hydralazine 100mg Q8H, labetalol 400mg Q 8H, clonidine patch has been increased to 0.3 - nifedipine 30mg QID, patients blood pressure much better controlled - losartan has been started will cont to monito r 2. Cardiac arrest - PEA in etiology, pt became hypothermic and sub sequently bradycardic 3. Type B aortic dissection s/p EVAR - has residual descending aortic dissect ion extending into iliacs. No evidence of rupture on CTA. Reviewed by vascular surgery - appreciate assitance - optimal BP Control as above 4. Acute on chronic systolic heart failure -Improved significantly 5. Shock - resolved 6. JENNIFER on CKD -On dialysis 7. Acute hypoxic respiratory failure - now has tracheostomy- per ICU team 8. Stroke: - CT head and MRI with evidence of prior CVA - TTE with possible PFO - discsused with Nurology and they are okay wit h PFO closure during this admission, Will proceed this week. Will follow. Please call if questions. [facility] Cardiology Electronically Signed by Abhi Ortiz DO on 07/26 at 1233 RPT #:[id number] END OF REPORT 2020-07-26 11:30:00-00:00 [facility] [facility] REPORT#:[id number] REPORT STATUS: Signed DATE:07/26/20 TIME: 1130 PATIENT: JORGE GOINS UNIT #: [id number] ROOM/BED: [address] : [birth year] AGE: 34 SEX: M ATTEND: Raphael Davila MD ADM AUTHOR: Tessa Wolfe MD * ALL edits or amendments must be made on the rimidi/computer document * Subjective Chief Complaint: ASSUMED CARE chart reviewed pt seen ICU downgrade no events over night no fever on trach Review of Systems All systems rev neg: except as marked Objective General VS/I O: Vital Signs: Date Time Temp Pulse Resp B/P B/P Pulse O2 O2 F low FiO2 Mean Ox Delivery Rate 07/26 1112 98.4 54 22 148/62 0.0 100 07/26 0738 97.3 56 22 157/77 103.6 100 07/26 0423 98.2 60 26 147/65 92.3 99 Room air 07/26 0014 98.2 56 16 191/95 127.1 100 Room air 07/25 1936 98.1 53 12 158/80 106.3 100 Room air 07/25 1655 56 18 157/74 101.9 100 07/25 1501 155/77 103 07/25 1157 97.5 60 19 173/88 116.5 100 24 hour I O ending at 0700: 07/26 0700 07/25 1900 Intake Total 1440 Output Total 1650 1400 Balance -1650 40 Intake, Oral 1200 Intake, Oral 240 Supplement Output, Urine 1650 1400 Patient 86.9 kg Weight Weight Bed scale Measurement Method PATIENT WEIGHT: Weight (lb): 191 Weight (oz): 9.31 Weight (kg): 86.900 Medications: Active Meds + DC'd Last 24 Hrs Aspirin 81 MG DAILY PO Atorvastatin Calcium 40 MG DAILY PO Nifedipine 30 MG Q6HR PO Isosorbide Mononitrate 30 MG BID PO Isosorbide Mononitrate 30 MG BID PO (DC) Acetaminophen 650 MG Q4H PRN PRN PO Famotidine 20 MG DAILY PO Labetalol HCl 600 MG Q8HR PO Heparin Sodium (Porcine) 5,000 UNIT Q12HR SUBQ Losartan Potassium 50 MG BID PO Nifedipine 30 MG Q6HR FEED-TUBE (DC) Prednisone 30 MG DAILY PO Heparin Sodium (Porcine) 2,000 UNIT DIALYSIS-DOS E BEFORE IV (CKD) Heparin Sodium (Porcine) 5,000 UNIT DIALYSIS-DOS E AFTER MISC Sodium Chloride 1,000 ML ASDIR PRN IV Clonidine HCl 0.3 MG Q7D TRANSDERM (CKD) Nicardipine HCl 200 ML TITRATE IV (DC) Labetalol HCl 10 MG Q6H PRN PRN IV Acetaminophen 650 MG Q4H PRN PRN FEED-TUBE (DC) Isosorbide Mononitrate 30 MG BID FEED-TUBE (DC) Potassium Chloride 100 ML ASDIR PRN IV Potassium Bicarbonate/Citric Acid 20 MEQ ASDIR P O (CKD) Potassium Chloride 100 ML ASDIR PRN IV Hydralazine HCl 100 MG Q8HR PO Magnesium 100 ML ASDIR PRN IV Magnesium Sulfate 50 ML ASDIR PRN IV Magnesium Sulfate 100 ML ASDIR PRN IV Aspirin 81 MG DAILY FEED-TUBE (DC) Atorvastatin Calcium 40 MG DAILY FEED-TUBE (DC) Albuterol/Ipratropium 3 ML RTQ6H INH (DC) Dextrose/Water 25 ML ASDIR PRN IV Glucagon 1 MG ASDIR PRN IM Insulin Human Lispro LOW DOSE SCALE ASDIR SUBQ Physical Exam General appearance: awake Head/Eyes: atraumatic Cardiovascular: normal heart sounds, regular rat e rhythm Respiratory: aerating well, clear to auscultatio n Extremities: no clubbing Diagnosis, Assessment Plan Free Text DxA P Notes Free text DxA P notes: 34 year old male with history of aortic dissecti on s/p EVAR came in for hypertensive urgency initial ly.prolonged hospitalization...chart reviewed....pt seen at [facility] 1. Acute encephalopathy - improving ...multifact orial 2. Lower extremity weakness- critical illness my opathy vs GBS 3. Acute ischemic strokes, suspect embolic sourc e, + PFO, b/l lower extremity dopplers negative 4. s/p PEA arrest 06/11/20 5. hypertensive emergency - improved,con tinue hydralazine,labetalol,clonidine, nifedipine,losartan cardio on board 6. acute respiratory failure, s/p trach...pulmon kenan on board 7. type b aortic dissection 8. JENNIFER.....nephrology on board .......ho ld off HD for now,ok to start losartan 9.Stroke....MRI multiple ischemic cva.......mau gement per neuro 10.systolic CHF ...improving .....TTE with possi ble PFO, closure of PFO when patient improves enough after discharge per card io gi ppx: pepcid dvt ppx: heparin Diet: tube feeds we will f/u check labs continue tube feedings off cardene drip,bp is much better today Electronically Signed by Tessa Wolfe MD on at 1630 RPT #:[id number] END OF REPORT 2020-07-26 11:21:00-00:00 [facility] Neurology Progress Note REPORT#:[id number] REPORT STATUS: Signed DATE:07/26/20 TIME: 1121 PATIENT: JORGE GOINS UNIT #: [id number] ROOM/BED: [address] : 86 AGE: 34 SEX: M ATTEND: Raphael Davila MD ADM AUTHOR: Jessica Parson MD * ALL edits or amendments must be made on the rimidi/computer document * Subjective Comments: no new complaints legs still feel weak Objective General VS: Last Documented: Result Date Time Pulse Ox 100 07/26 1112 B/P 148/62 07/26 1112 B/P Mean 0.0 07/26 1112 Temp 36.9 07/26 1112 Pulse 54 07/26 1112 Resp 22 07/26 1112 O2 Delivery Room air 07/26 0423 FiO2 21 07/25 0928 O2 Flow Rate 5 07/24 0850 PATIENT WEIGHT: Weight (lb): 191 Weight (oz): 9.31 Weight (kg): 86.900 exam laying in bed, NAD NEURO awake alert and oriented slow to respond but follows simple commands left hand weaker than right power 3-4/5 in the upper extremities 0/5 in the lower extremities with absent reflexe s Medications Current Home Medications ALBUTEROL (PROAIR HFA 90 MCG/ACT 8.5 GM) 2 PUFF INH RTQ6H PRN PRN SOB ASPIRIN EC (ECOTRIN) 81 MG PO DAILY CARVEDILOL (COREG) 25 MG PO BID MEALS ACETAMINOPHEN/CODEINE (TYLENOL WITH CODE INE #4 300/60 MG) 1 TAB PO Q6H PRN PRN PAIN ATORVASTATIN (LIPITOR) 20 MG PO BEDTIME LOSARTAN (COZAAR) 100 MG PO DAILY NIFEdipine CC (ADALAT CC) 90 MG PO Q12HR HYDROCHLOROTHIAZIDE (HYDRODIURIL) 25 MG PO DAILY Active Meds + DC'd Last 24 Hrs Aspirin 81 MG DAILY PO Atorvastatin Calcium 40 MG DAILY PO Nifedipine 30 MG Q6HR PO Isosorbide Mononitrate 30 MG BID PO Isosorbide Mononitrate 30 MG BID PO (DC) Acetaminophen 650 MG Q4H PRN PRN PO Famotidine 20 MG DAILY PO Labetalol HCl 600 MG Q8HR PO Heparin Sodium (Porcine) 5,000 UNIT Q12HR SUBQ Losartan Potassium 50 MG BID PO Nifedipine 30 MG Q6HR FEED-TUBE (DC) Prednisone 30 MG DAILY PO Heparin Sodium (Porcine) 2,000 UNIT DIALYSIS-DOS E BEFORE IV (CKD) Heparin Sodium (Porcine) 5,000 UNIT DIALYSIS-DOS E AFTER MISC Sodium Chloride 1,000 ML ASDIR PRN IV Clonidine HCl 0.3 MG Q7D TRANSDERM (CKD) Nicardipine HCl 200 ML TITRATE IV (DC) Labetalol HCl 10 MG Q6H PRN PRN IV Acetaminophen 650 MG Q4H PRN PRN FEED-TUBE (DC) Isosorbide Mononitrate 30 MG BID FEED-TUBE (DC) Potassium Chloride 100 ML ASDIR PRN IV Potassium Bicarbonate/Citric Acid 20 MEQ ASDIR P O (CKD) Potassium Chloride 100 ML ASDIR PRN IV Hydralazine HCl 100 MG Q8HR PO Magnesium 100 ML ASDIR PRN IV Magnesium Sulfate 50 ML ASDIR PRN IV Magnesium Sulfate 100 ML ASDIR PRN IV Aspirin 81 MG DAILY FEED-TUBE (DC) Atorvastatin Calcium 40 MG DAILY FEED-TUBE (DC) Albuterol/Ipratropium 3 ML RTQ6H INH (DC) Dextrose/Water 25 ML ASDIR PRN IV Glucagon 1 MG ASDIR PRN IM Insulin Human Lispro LOW DOSE SCALE ASDIR SUBQ Diagnosis, Assessment Plan Problem List/A P: 1. Hypertensive urgency 2. Metabolic encephalopathy 3. Critical illness myopathy Free Text A P: Assessment 1. Acute encephalopathy - improving multifactori al - metabolic/hypertensive emergency/acute stroke 2. Lower extremity weakness- critical illness my opathy vs GBS 3. Acute ischemic strokes, suspect embolic sourc e, + PFO, b/l lower extremity dopplers negative 4. s/p PEA arrest 06/11/20 5. hypertensive emergency - improved 6. acute respiratory failure, s/p trach 7. type b aortic dissection 8. JENNIFER Plan: -agree with PFO closure -aggressive PT/OT -may neeed LP for CSF analysis for lower extremi ty weakness -medical management per primary discussed PFO closure with Dr Ortiz/cardiology will follow Electronically Signed by Jessica Parson MD on at 0715 RPT #:[id number] END OF REPORT 2020-07-26 00:24:00-00:00 [facility] Neurology Progress Note REPORT#:[id number] REPORT STATUS: Signed DATE:07/26/20 TIME: 0024 PATIENT: JORGE GOINS UNIT #: [id number] ROOM/BED: [address] : 86 AGE: 34 SEX: M ATTEND: Raphael Davila MD ADM AUTHOR: Jessica Parson MD * ALL edits or amendments must be made on the el [employer]/computer document * Subjective Comments: late entry, patient seen 07/25/20 around 11 AM patient still feels weak in his legs no numbness or tingling Objective General VS: Last Documented: Result Date Time Pulse Ox 100 07/26 13 B/P 191/95 07/26 13 B/P Mean 127.1 07/26 13 O2 Delivery Room air 07/26 13 Temp 36.8 07/26 0014 Pulse 56 07/26 0014 Resp 16 07/26 001 FiO2 21 07/25 0928 O2 Flow Rate 5 07/24 0850 PATIENT WEIGHT: Weight (lb): 199 Weight (oz): 4.77 Weight (kg): 90.400 exam laying in bed, NAD NEURO awake alert and oriented slow to respond but follows simple commands power 3-4/5 in the upper extremities 0/5 in the lower extremities with absent reflexe s Medications Current Home Medications ALBUTEROL (PROAIR HFA 90 MCG/ACT 8.5 GM) 2 PUFF INH RTQ6H PRN PRN SOB ASPIRIN EC (ECOTRIN) 81 MG PO DAILY CARVEDILOL (COREG) 25 MG PO BID MEALS ACETAMINOPHEN/CODEINE (TYLENOL WITH CODE INE #4 300/60 MG) 1 TAB PO Q6H PRN PRN PAIN ATORVASTATIN (LIPITOR) 20 MG PO BEDTIME LOSARTAN (COZAAR) 100 MG PO DAILY NIFEdipine CC (ADALAT CC) 90 MG PO Q12HR HYDROCHLOROTHIAZIDE (HYDRODIURIL) 25 MG PO DAILY Active Meds + DC'd Last 24 Hrs Aspirin 81 MG DAILY PO Atorvastatin Calcium 40 MG DAILY PO Nifedipine 30 MG Q6HR PO Isosorbide Mononitrate 30 MG BID PO Isosorbide Mononitrate 30 MG BID PO (DC) Acetaminophen 650 MG Q4H PRN PRN PO Famotidine 20 MG DAILY PO Labetalol HCl 600 MG Q8HR PO Heparin Sodium (Porcine) 5,000 UNIT Q12HR SUBQ Losartan Potassium 50 MG BID PO Nifedipine 30 MG Q6HR FEED-TUBE (DC) Prednisone 30 MG DAILY PO Heparin Sodium (Porcine) 2,000 UNIT DIALYSIS-DOS E BEFORE IV (CKD) Heparin Sodium (Porcine) 5,000 UNIT DIALYSIS-DOS E AFTER MISC Sodium Chloride 1,000 ML ASDIR PRN IV Clonidine HCl 0.3 MG Q7D TRANSDERM (CKD) Nicardipine HCl 200 ML TITRATE IV (DC) Labetalol HCl 10 MG Q6H PRN PRN IV Acetaminophen 650 MG Q4H PRN PRN FEED-TUBE (DC) Isosorbide Mononitrate 30 MG BID FEED-TUBE (DC) Potassium Chloride 100 ML ASDIR PRN IV Potassium Bicarbonate/Citric Acid 20 MEQ ASDIR P O (CKD) Potassium Chloride 100 ML ASDIR PRN IV Hydralazine HCl 100 MG Q8HR PO Magnesium 100 ML ASDIR PRN IV Magnesium Sulfate 50 ML ASDIR PRN IV Magnesium Sulfate 100 ML ASDIR PRN IV Aspirin 81 MG DAILY FEED-TUBE (DC) Atorvastatin Calcium 40 MG DAILY FEED-TUBE (DC) Albuterol/Ipratropium 3 ML RTQ6H INH (DC) Dextrose/Water 25 ML ASDIR PRN IV Glucagon 1 MG ASDIR PRN IM Insulin Human Lispro LOW DOSE SCALE ASDIR SUBQ Diagnosis, Assessment Plan Problem List/A P: 1. Hypertensive urgency 2. Metabolic encephalopathy 3. Critical illness myopathy Free Text A P: Assessment 1. Acute encephalopathy - improving multifactori al - metabolic/hypertensive emergency/acute stroke 2. Lower extremity weakness- critical illness my opathy vs GBS 3. Acute ischemic strokes, suspect embolic sourc e, + PFO, b/l lower extremity dopplers negative 4. s/p PEA arrest 06/11/20 5. hypertensive emergency - improved 6. acute respiratory failure, s/p trach 7. type b aortic dissection 8. JENNIFER Plan: -aggressive PT/OT -may neeed LP for CSF analysis for lower extremi ty weakness -PFO closure in future when medically stabilized -medical management per primary d/w nurse, will follow Electronically Signed by Jessica Parson MD on at 0857 RPT #:[id number] END OF REPORT 2020-07-25 20:03:00-00:00 [facility]) Critical Care Progress Note REPORT#:[id number] REPORT STATUS: Signed DATE:07/25/20 TIME: 2002 PATIENT: JORGE GOINS UNIT #: [id number] ROOM/BED: [address] : [birth year] AGE: 34 SEX: M ATTEND: Raphael Davila MD ADM AUTHOR: Edy Olmedo MD * ALL edits or amendments must be made on the el [employer]/computer document * Subjective Chief Complaint: on TC mental status stable BP better controlled MRI planned Objective Physical Exam Head/Eyes: atraumatic, normocephalic Neck: full range of motion Cardiovascular: normal heart sounds, normal S1 S 2, normal rate and rhythm Respiratory/Chest: aerating well, clear to auscu ltation Abdomen: soft, non-tender, normal bowel sounds, no distention Extremities: no edema Neuro/RADIOTELEGRAPHIST: disoriented, alert Diagnosis, Assessment Plan Free text A P: 34 year old male with history of aortic dissecti on s/p EVAR came in for hypertensive urgency A/P: Neuro -MRI multiple ischemic cva Neuro status slowly improving More awake. following commands MRI spine ok Pulm -s/p trach On TC CV #s/p Cardiac Arrest - PEA hypotensive. ROSC achieved after 9 minutes - likely from cardiogenic shock EF 30-34% - Aortic dissection ruled out from CTA chest , a bdomen and pelvis #hx of EVAR for aortic dissection and h/o endole ak in the past - per vascular surgery -uncontrolled hypertension on cardene will titrate po meds to d/c cardene # Fever positive blood culture respiratory source'unlikley clabsi abx GI on tube feeidng Renal Acute renal failure on hd gi ppx: pepcid dvt ppx: heparin Diet: tube feeds condition stable prognosis guarded Transfer to IMU once off cardene Electronically Signed by Edy Olmedo MD on at 2132 RPT #:[id number] END OF REPORT 2020-07-25 13:41:00-00:00 [facility] Nephrology Progress Note REPORT#:[id number] REPORT STATUS: Signed DATE:07/25/20 TIME: 1341 PATIENT: JORGE GOINS UNIT #: [id number] ROOM/BED: [address] : 86 AGE: 34 SEX: M ATTEND: Luis M Olmedo MD ADM AUTHOR: Jojo York MD * ALL edits or amendments must be made on the el [employer]/computer document * Subjective Comments: Events noted Objective General VS/I O: Vital Signs: Date Time Temp Pulse Resp B/P B/P Pulse O2 O2 F low FiO2 Mean Ox Delivery Rate 07/25 1157 97.5 60 19 173/88 116.5 100 07/25 0928 100 21 07/25 0721 97.9 70 18 100 07/25 0429 98.1 66 19 139/64 89.2 100 Room air 07/24 2309 98.2 62 19 131/65 86.8 100 Room air 07/24 1999 97.5 57 16 140/74 0.0 100 07/24 1900 59 19 143/71 99 100 07/24 1754 58 20 140/79 104 100 07/24 1645 63 25 140/73 99 100 07/24 1615 64 27 135/71 96 100 07/24 1600 98.8 07/24 1600 63 23 124/60 86 07/24 1545 66 25 124/56 82 07/24 1530 68 29 124/58 84 07/24 1515 68 26 127/63 87 100 07/24 1500 65 23 131/66 91 99 07/24 1445 68 25 131/66 92 98 07/24 1430 65 20 129/64 89 97 07/24 1415 72 28 135/63 91 98 07/24 1410 69 23 129/63 87 97 07/24 1400 67 27 137/68 94 97 07/24 1345 62 23 131/66 92 98 24 hour I O ending at 0700: 07/25 0700 07/24 1900 Intake Total 307 Output Total 800 Balance -493 Intake, 307 Packed Cells Output, Urine 800 Patient 90.4 kg Weight Weight Bed scale Measurement Method PATIENT WEIGHT: Weight (lb): 199 Weight (oz): 4.77 Weight (kg): 90.400 Medications Active Meds + DC'd Last 24 Hrs Famotidine 20 MG DAILY PO Labetalol HCl 600 MG Q8HR PO Heparin Sodium (Porcine) 5,000 UNIT Q12HR SUBQ Losartan Potassium 50 MG BID PO Nifedipine 30 MG Q6HR FEED-TUBE Prednisone 30 MG DAILY PO Heparin Sodium (Porcine) 2,000 UNIT DIALYSIS-DOS E BEFORE IV (CKD) Heparin Sodium (Porcine) 5,000 UNIT DIALYSIS-DOS E AFTER MISC Sodium Chloride 1,000 ML ASDIR PRN IV Clonidine HCl 0.3 MG Q7D TRANSDERM (CKD) Nicardipine HCl 200 ML TITRATE IV Labetalol HCl 10 MG Q6H PRN PRN IV Acetaminophen 650 MG Q4H PRN PRN FEED-TUBE Isosorbide Mononitrate 30 MG BID FEED-TUBE Potassium Chloride 100 ML ASDIR PRN IV Potassium Bicarbonate/Citric Acid 20 MEQ ASDIR P O (CKD) Potassium Chloride 100 ML ASDIR PRN IV Hydralazine HCl 100 MG Q8HR PO Magnesium 100 ML ASDIR PRN IV Magnesium Sulfate 50 ML ASDIR PRN IV Magnesium Sulfate 100 ML ASDIR PRN IV Aspirin 81 MG DAILY FEED-TUBE Atorvastatin Calcium 40 MG DAILY FEED-TUBE Albuterol/Ipratropium 3 ML RTQ6H INH Dextrose/Water 25 ML ASDIR PRN IV Glucagon 1 MG ASDIR PRN IM Insulin Human Lispro LOW DOSE SCALE ASDIR SUBQ Physical Exam General appearance: no acute distress ENT: moist mucous membranes Neck: no JVD, no masses or swelling Cardiovascular: normal heart sounds, regular rat e and rhythm Respiratory: aerating well, clear to auscultatio n Abdomen: normal bowel sounds, soft Extremities: no edema Musculoskeletal: decreased ROM 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 Results Findings/Data: Laboratory Tests 07/24 07/24 1842 1615 Chemistry POC Glucose (74 - 106 MG/DL) 90 Iron (49 - 181 ug/dL) 74 TIBC (261 - 462 ug/dL) 241 L % Saturation (20 - 55 %) 31 Laboratory Tests 07/24 1615 Hematology Hgb (14.0 - 18.0 g/dL) 8.1 L Hct (37.0 - 49.0 %) 25.8 L Diagnosis, Assessment Plan Free Text A P: JENNIFER hypotension AAA lactic acidosis severe metabolic acidosis- resolved Metabolic alkalosis - resolved Making good urine Mental status has significantly improved Hold off on further dialysis bp control per ICU team- ok to start arb discussed with cardiology continue to monitor at 1342 RPT #:[id number] END OF REPORT 2020-07-24 23:36:00-00:[address] [facility] ([facility]) Cardiology Progress Note REPORT#:[id number] REPORT STATUS: Signed DATE:07/24/20 TIME: 2335 PATIENT: JORGE GOINS UNIT #: [id number] ROOM/BED: [address] : [birth year] AGE: 34 SEX: M ATTEND: Luis M Olmedo MD ADM AUTHOR: Giancarlo Phan MD * ALL edits or amendments must be made on the el [employer]/computer document * Subjective Free Text Subj Notes Free Text Subj Notes: Doing better likely to transfer to the floor. Objective Physical Exam Head/Eyes: atraumatic, normocephalic ENT: moist mucosal membranes, normal nose Neck: non-tender, supple/no meningismus, traches otomy prsent Cardiovascular: CV assessment: regular rate and rhythm, no murm ur Respiratory: no distress, coarse breathsounds, m echanically ventialted Abdomen: soft, non-tender Upper extremity: UE assessment: normal capillary refill, normal temperature Lower extremity: LE assessment: normal capillary refill, normal temperature, no edema Musculoskeletal: normal inspection Neuro/RADIOTELEGRAPHIST: vented via trachesotomy, not followin g commands Diagnosis, Assessment Plan Free Text DxA P Notes Free Text DxA P Notes: 1. Hypertensive urgency/emergency - presented with severely elevated BP requiring 2 IV infusions, subsequently suffered PEA cardiac arrest - BP control improving - cont hydralazine 100mg Q8H, labetalol 400mg Q 8H, clonidine patch has been increased to 0.3 - nifedipine 30mg QID, patients blood pressure much better controlled - losartan has been started will cont to monito r 2. Cardiac arrest - PEA in etiology, pt became hypothermic and sub sequently bradycardic 3. Type B aortic dissection s/p EVAR - has residual descending aortic dissect ion extending into iliacs. No evidence of rupture on CTA. Reviewed by vascular surgery - appreciate assitance - optimal BP Control as above 4. Acute on chronic systolic heart failure -Improved significantly 5. Shock - resolved 6. JENNIFER on CKD -On dialysis 7. Acute hypoxic respiratory failure - now has tracheostomy- per ICU team 8. Stroke: - CT head and MRI with evidence of prior CVA - TTE with possible PFO -will consider closure o f PFO when patient improves enough after discharge. Will follow. Please call if questions. [facility] Cardiology Electronically Signed by Giancarlo Phan MD on 06/28 at 0801 RPT #:[id number] END OF REPORT 2020-07-24 21:18:00-00:[address] [facility] ([facility]) Nephrology Progress Note REPORT#:[id number] REPORT STATUS: Signed DATE:07/24/20 TIME: 2117 PATIENT: JORGE GOINS UNIT #: [id number] ROOM/BED: [address] : 86 AGE: 34 SEX: M ATTEND: Luis M Olmedo MD ADM AUTHOR: Ceferino De La Garza MD * ALL edits or amendments must be made on the [employer]idi[employer] document * Subjective Comments: seen at bedside no new events Objective General VS/I O: Vital Signs: Date Time Temp Pulse Resp B/P B/P Pulse O2 O2 Fl ow FiO2 Mean Ox Delivery Rate 07/24 1999 36.4 57 16 140/74 0.0 100 07/24 1900 59 19 143/71 99 100 07/24 1754 58 20 140/79 104 100 07/24 1645 63 25 140/73 99 100 07/24 1615 64 27 135/71 96 100 07/24 1600 37.1 07/24 1600 63 23 124/60 86 07/24 1545 66 25 124/56 82 07/24 1530 68 29 124/58 84 07/24 1515 68 26 127/63 87 100 07/24 1500 65 23 131/66 91 99 07/24 1445 68 25 131/66 92 98 07/24 1430 65 20 129/64 89 97 07/24 1415 72 28 135/63 91 98 07/24 1410 69 23 129/63 87 97 07/24 1400 67 27 137/68 94 97 07/24 1345 62 23 131/66 92 98 07/24 1330 65 29 140/71 97 98 07/24 1315 63 31 143/69 99 99 07/24 1300 66 21 144/70 100 99 07/24 1245 60 28 144/74 102 100 07/24 1230 62 25 154/80 110 98 07/24 1215 66 25 146/77 105 99 07/24 1213 61 29 150/77 106 98 07/24 1211 61 23 151/79 108 98 07/24 1200 36.9 07/24 1200 63 16 144/77 104 100 07/24 1147 63 19 136/71 96 99 07/24 1145 58 19 142/73 100 99 07/24 1130 64 22 143/73 101 94 07/24 1115 63 16 142/71 100 100 07/24 1100 56 18 134/67 93 100 07/24 1045 56 18 133/66 92 100 07/24 1030 61 21 132/65 91 100 07/24 1015 65 29 137/67 95 / 1006 65 29 / 1000 67 29 133/67 93 07/24 0945 69 32 131/66 91 07/24 0944 71 25 07/24 0930 70 30 138/67 94 07/24 0915 69 31 135/69 93 07/24 0900 67 22 145/73 101 07/24 0850 100 5 28 Tracheostomy collar 07/24 0845 52 16 137/71 97 07/24 0830 53 18 131/67 91 07/24 0815 54 17 132/67 92 07/24 0800 55 17 141/73 99 07/24 0745 56 15 142/70 98 07/24 0730 Tracheostomy collar 07/24 0730 59 18 144/73 101 07/24 0725 37.0 07/24 0715 55 16 150/75 105 07/24 0709 56 17 07/24 0700 54 17 148/74 104 07/24 0645 59 20 144/72 101 07/24 0630 54 18 142/70 98 07/24 0615 58 20 141/70 99 07/24 0600 56 17 136/66 93 07/24 0545 63 22 138/66 95 07/24 0530 56 17 135/65 92 07/24 0515 66 21 133/63 91 07/24 0500 61 25 132/63 90 07/24 0445 62 18 144/70 100 07/24 0430 53 20 141/69 96 07/24 0415 58 18 144/71 101 07/24 0400 36.7 07/24 0400 56 19 139/67 95 07/24 0345 58 20 135/64 90 07/24 0330 61 17 137/64 91 07/24 0315 61 17 134/64 90 07/24 0300 58 22 130/61 86 07/24 0245 60 17 134/65 91 07/24 0230 61 18 129/64 89 07/24 0215 66 23 139/68 97 / 0200 57 19 134/67 93 100 07/24 0145 58 22 140/66 97 100 07/24 0130 60 20 137/67 93 100 07/24 0115 64 21 136/64 93 100 07/24 0100 67 21 136/67 95 100 07/24 0045 62 23 131/65 89 100 07/24 0030 62 22 134/64 91 100 07/24 0015 61 20 142/68 97 100 07/24 0000 36.6 07/24 0000 62 21 138/70 97 100 07/23 2345 64 20 133/67 93 100 07/23 2330 66 23 147/71 100 100 07/23 2315 58 25 141/68 96 100 07/23 2300 60 24 136/67 93 84 07/23 2245 63 25 139/70 96 83 07/23 2230 63 25 141/69 97 07/23 2215 63 25 151/72 103 100 07/23 2200 62 23 151/72 103 100 07/23 2145 61 22 148/69 99 100 07/23 2130 62 23 149/70 101 100 24 hour I O ending at 0700: 07/24 0700 07/23 1900 Intake Total 644.00 Output Total 775 Balance -131.00 Intake, IV 194.00 Intake, Oral 450 Output, Urine 775 PATIENT WEIGHT: Weight (lb): 194 Weight (oz): 10.69 Weight (kg): 88.300 Medications Active Meds + DC'd Last 24 Hrs Epoetin Tay-epbx 10,000 UNIT ONCE ONE IV (DC) Famotidine 20 MG DAILY PO Labetalol HCl 600 MG Q8HR PO Heparin Sodium (Porcine) 5,000 UNIT Q12HR SUBQ Losartan Potassium 50 MG BID PO Nifedipine 30 MG Q6HR FEED-TUBE Prednisone 30 MG DAILY PO Heparin Sodium (Porcine) 2,000 UNIT DIALYSIS-DOS E BEFORE IV (CKD) Heparin Sodium (Porcine) 5,000 UNIT DIALYSIS-DOS E AFTER MISC Sodium Chloride 1,000 ML ASDIR PRN IV Clonidine HCl 0.3 MG Q7D TRANSDERM (CKD) Nicardipine HCl 200 ML TITRATE IV Labetalol HCl 10 MG Q6H PRN PRN IV Acetaminophen 650 MG Q4H PRN PRN FEED-TUBE Isosorbide Mononitrate 30 MG BID FEED-TUBE Potassium Chloride 100 ML ASDIR PRN IV Potassium Bicarbonate/Citric Acid 20 MEQ ASDIR P O (CKD) Potassium Chloride 100 ML ASDIR PRN IV Hydralazine HCl 100 MG Q8HR PO Magnesium 100 ML ASDIR PRN IV Magnesium Sulfate 50 ML ASDIR PRN IV Magnesium Sulfate 100 ML ASDIR PRN IV Aspirin 81 MG DAILY FEED-TUBE Atorvastatin Calcium 40 MG DAILY FEED-TUBE Albuterol/Ipratropium 3 ML RTQ6H INH Dextrose/Water 25 ML ASDIR PRN IV Glucagon 1 MG ASDIR PRN IM Insulin Human Lispro LOW DOSE SCALE ASDIR SUBQ Physical Exam ENT: moist mucous membranes Neck: no JVD, no masses or swelling Cardiovascular: normal heart sounds, regular rat e and rhythm Respiratory: aerating well, clear to auscultatio n Abdomen: normal bowel sounds, soft Extremities: no edema Musculoskeletal: decreased ROM 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 Results Findings/Data: Laboratory Tests 07/24 07/24 07/24 07/24 07/23 1842 1615 1249 0309 2126 Chemistry Sodium (137 - 145 mmol/L) 138 Potassium (3.4 - 5.0 mmol/L) 4.7 Chloride (98 - 107 mmol/L) 108 H Carbon Dioxide (22 - 30 mmol/L) 21 L BUN (9 - 20 mg/dL) 76 H Creatinine (0.7 - 1.3 mg/dL) 4.3 H Glomerular Filtr Rate (>60) 21 L Glucose (74 - 106 mg/dL) 107 H POC Glucose (74 - 106 MG/DL) 90 114 H 127 H Calcium (8.4 - 10.2 mg/dL) 8.0 L Iron (49 - 181 ug/dL) 74 TIBC (261 - 462 ug/dL) 241 L % Saturation (20 - 55 %) 31 Laboratory Tests 07/24 07/24 1615 0309 Hematology WBC (5.0 - 12.0 x10 3/uL) 10.4 RBC (4.70 - 6.10 x10 6/uL) 2.39 L Hgb (14.0 - 18.0 g/dL) 8.1 L 6.6 L Hct (37.0 - 49.0 %) 25.8 L 21.9 L MCV (80 - 94 fL) 92 MCH (27 - 31 pg) 27.6 MCHC (33 - 37 g/dL) 30.1 L RDW (11.5 - 15.5 %) 15.7 H Plt Count (130 - 400 x10 3/uL) 219 MPV (9.4 - 16.4 fL) 11.2 Neut % (Auto) (43 - 65 %) 86.5 H Lymph % (Auto) (20.5 - 45.5 %) 6.5 L Citrus % (Auto) (5.5 - 11.7 %) 5.4 L Eos % (Auto) (0.9 - 2.9 %) 0.4 L Baso % (Auto) (0.2 - 1.0 %) 0.5 Neut # (Auto) (2.2 - 4.8 x10 3/uL) 8.99 H Lymph # (Auto) (1.3 - 2.9 x10 3/uL) 0.67 L Citrus # (Auto) (0.3 - 0.8 x10 3/uL) 0.56 Eos # (Auto) (0.0 - 0.2 x10 3/uL) 0.04 Baso # (Auto) (0.0 - 0.1 x10 3/uL) 0.05 Immature Gran % (0.0 - 2.0 %) 0.7 Nucleated RBC % (0 - 1.0 %) 0.0 Diagnosis, Assessment Plan Free Text A P: JENNIFER hypotension AAA lactic acidosis severe metabolic acidosis- resolved Metabolic alkalosis - resolved GOOD UOP MONITOR FOR RECOVERY- continue holding HD bp control per ICU team- ok to start arb discussed with cardiology continue to monitor at 2148 RPT #:[id number] END OF REPORT 2020-07-24 09:50:00-00:00 [facility]) Neurology Progress Note REPORT#:[id number] REPORT STATUS: Signed DATE:07/24/20 TIME: 0950 PATIENT: JORGE GOINS UNIT #: [id number] ROOM/BED: [address] : [birth year] AGE: 34 SEX: M ATTEND: Luis M Olmedo MD ADM AUTHOR: Sinai Rogers DPM R2 * ALL edits or amendments must be made on the el ectronic/computer document * Subjective Chief Complaint: Patient awake/alert. Eating breakfast at bedside. Endorses numbness in b/l legs Review of Systems Constitutional: Denies: chills, fever. Cardiovascular: Denies: chest pain. Objective General VS: Last Documented: Result Date Time Pulse 71 07/24 943 Resp 25 07/24 0844 B/P 138/67 07/24 929 B/P Mean 94 07/24 929 Pulse Ox 100 07/24 0850 FiO2 28 07/24 0850 O2 Delivery Tracheostomy collar 07/24 0850 O2 Flow Rate 5 07/24 0850 Temp 37.0 07/24 0725 PATIENT WEIGHT: Weight (lb): 194 Weight (oz): 10.69 Weight (kg): 88.300 Physical Exam General appearance: respiratory support, alert, awake Head/Eyes: atraumatic, normocephalic ENT: moist mucosal membranes Neck: non-tender, no masses or swelling Cardiovascular: irregular rate and rhythm, murmu r Respiratory: on oxygen Abdomen: non-tender, normal bowel sounds, soft Results Findings/Data: Laboratory Tests 07/24 308 Chemistry Sodium (137 - 145 mmol/L) 138 Potassium (3.4 - 5.0 mmol/L) 4.7 Chloride (98 - 107 mmol/L) 108 H Carbon Dioxide (22 - 30 mmol/L) 21 L BUN (9 - 20 mg/dL) 76 H Creatinine (0.7 - 1.3 mg/dL) 4.3 H Glomerular Filtr Rate (>60) 21 L Glucose (74 - 106 mg/dL) 107 H Calcium (8.4 - 10.2 mg/dL) 8.0 L Laboratory Tests 07/24 308 Hematology WBC (5.0 - 12.0 x10 3/uL) 10.4 RBC (4.70 - 6.10 x10 6/uL) 2.39 L Hgb (14.0 - 18.0 g/dL) 6.6 L Hct (37.0 - 49.0 %) 21.9 L MCV (80 - 94 fL) 92 MCH (27 - 31 pg) 27.6 MCHC (33 - 37 g/dL) 30.1 L RDW (11.5 - 15.5 %) 15.7 H Plt Count (130 - 400 x10 3/uL) 219 MPV (9.4 - 16.4 fL) 11.2 Neut % (Auto) (43 - 65 %) 86.5 H Lymph % (Auto) (20.5 - 45.5 %) 6.5 L Citrus % (Auto) (5.5 - 11.7 %) 5.4 L Eos % (Auto) (0.9 - 2.9 %) 0.4 L Baso % (Auto) (0.2 - 1.0 %) 0.5 Neut # (Auto) (2.2 - 4.8 x10 3/uL) 8.99 H Lymph # (Auto) (1.3 - 2.9 x10 3/uL) 0.67 L Citrus # (Auto) (0.3 - 0.8 x10 3/uL) 0.56 Eos # (Auto) (0.0 - 0.2 x10 3/uL) 0.04 Baso # (Auto) (0.0 - 0.1 x10 3/uL) 0.05 Immature Gran % (0.0 - 2.0 %) 0.7 Nucleated RBC % (0 - 1.0 %) 0.0 Diagnosis, Assessment Plan Free Text A P: Assessment 1. Acute encephalopathy - multifactorial - metab olic/hypertensive emergency/ acute stroke 2. Acute ischemic strokes, suspect embolic sourc e, + PFO, b/l lower extremity dopplers negative 3. s/p PEA arrest 06/11/20 4. hypertensive emergency - 5. acute respiratory failure, s/p trach and peg 6. complicated type b aortic dissection, in need of extension TEVAR when stable per vascular surgery 7. Bilateral LE weakness/ parapglegia- ?Severe c ritical illness myopathy Plan: -MRI brain (07/19) - no evidence of acute ischemi a -Whole spine MRI was not done due to extensive a rtifact (from aortic stent grafts) -Whole spine CT (07/19) unremarkable -consider PFO closure in future when medically s tabilized -continue current plan -PEG was pulled 07/22. Passed swallow study. No plans to replace PEG at this time Will d/w attending Dr. Chino Electronically Signed by Sinai Rogers DPM R2 on 0 07/24/20 at 1017 RPT #:[id number] END OF REPORT 2020-07-24 09:50:00-00:[address] [facility] ([facility]) Neurology Progress Note REPORT#:[id number] REPORT STATUS: Signed DATE:07/24/20 TIME: 949 PATIENT: JORGE GOINS UNIT #: [id number] ROOM/BED: [address] : [birth year] AGE: 34 SEX: M ATTEND: Yoseph Olmedo MD ADM AUTHOR: Sinai Rogers DPM R2 * ALL edits or amendments must be made on the rimidi/computer document * Sinai Rogers 07/24/20 0950: Subjective Chief Complaint: Patient awake/alert. Eating breakfast at bedside. Endorses numbness in b/l legs Review of Systems Constitutional: Denies: chills, fever. Cardiovascular: Denies: chest pain. Objective General VS: Last Documented: Result Date Time Pulse 71 07/24 0944 Resp 25 07/24 0944 B/P 138/67 07/24 0930 B/P Mean 94 07/24 0930 Pulse Ox 100 07/24 0850 FiO2 28 07/24 0850 O2 Delivery Tracheostomy collar 07/24 0850 O2 Flow Rate 5 07/24 0850 Temp 37.0 07/24 0725 PATIENT WEIGHT: Weight (lb): 194 Weight (oz): 10.69 Weight (kg): 88.300 Physical Exam General appearance: respiratory support, alert, awake Head/Eyes: atraumatic, normocephalic ENT: moist mucosal membranes Neck: non-tender, no masses or swelling Cardiovascular: irregular rate and rhythm, murmu r Respiratory: on oxygen Abdomen: non-tender, normal bowel sounds, soft Results Findings/Data: Laboratory Tests 07/24 308 Chemistry Sodium (137 - 145 mmol/L) 138 Potassium (3.4 - 5.0 mmol/L) 4.7 Chloride (98 - 107 mmol/L) 108 H Carbon Dioxide (22 - 30 mmol/L) 21 L BUN (9 - 20 mg/dL) 76 H Creatinine (0.7 - 1.3 mg/dL) 4.3 H Glomerular Filtr Rate (>60) 21 L Glucose (74 - 106 mg/dL) 107 H Calcium (8.4 - 10.2 mg/dL) 8.0 L Laboratory Tests 07/24 308 Hematology WBC (5.0 - 12.0 x10 3/uL) 10.4 RBC (4.70 - 6.10 x10 6/uL) 2.39 L Hgb (14.0 - 18.0 g/dL) 6.6 L Hct (37.0 - 49.0 %) 21.9 L MCV (80 - 94 fL) 92 MCH (27 - 31 pg) 27.6 MCHC (33 - 37 g/dL) 30.1 L RDW (11.5 - 15.5 %) 15.7 H Plt Count (130 - 400 x10 3/uL) 219 MPV (9.4 - 16.4 fL) 11.2 Neut % (Auto) (43 - 65 %) 86.5 H Lymph % (Auto) (20.5 - 45.5 %) 6.5 L Citrus % (Auto) (5.5 - 11.7 %) 5.4 L Eos % (Auto) (0.9 - 2.9 %) 0.4 L Baso % (Auto) (0.2 - 1.0 %) 0.5 Neut # (Auto) (2.2 - 4.8 x10 3/uL) 8.99 H Lymph # (Auto) (1.3 - 2.9 x10 3/uL) 0.67 L Citrus # (Auto) (0.3 - 0.8 x10 3/uL) 0.56 Eos # (Auto) (0.0 - 0.2 x10 3/uL) 0.04 Baso # (Auto) (0.0 - 0.1 x10 3/uL) 0.05 Immature Gran % (0.0 - 2.0 %) 0.7 Nucleated RBC % (0 - 1.0 %) 0.0 Diagnosis, Assessment Plan Free Text A P: Assessment 1. Acute encephalopathy - multifactorial - metab olic/hypertensive emergency/ acute stroke 2. Acute ischemic strokes, suspect embolic sourc e, + PFO, b/l lower extremity dopplers negative 3. s/p PEA arrest 06/11/20 4. hypertensive emergency - 5. acute respiratory failure, s/p trach and peg 6. complicated type b aortic dissection, in need of extension TEVAR when stable per vascular surgery 7. Bilateral LE weakness/ parapglegia- ?Severe c ritical illness myopathy Plan: -MRI brain (07/19) - no evidence of acute ischemi a -Whole spine MRI was not done due to extensive a rtifact (from aortic stent grafts) -Whole spine CT (07/19) unremarkable -consider PFO closure in future when medically s tabilized -continue current plan -PEG was pulled 07/22. Passed swallow study. No plans to replace PEG at this time Will d/w attending William Agarwal 07/24/20 1342: Diagnosis, Assessment Plan Free Text A P: still not able to move both legs; agree with abo ve note/ plan by resident Electronically Signed by Sinai Rogers DPM R2 on 0 07/24/20 at 1017 at 1343 RPT #:[id number] END OF REPORT 2020-07-23 22:22:00-00:00 [facility] Cardiology Progress Note REPORT#:[id number] REPORT STATUS: Signed DATE:07/23/20 TIME: 2221 PATIENT: JORGE GOINS UNIT #: [id number] ROOM/BED: [address] : [birth year] AGE: 34 SEX: M ATTEND: Luis M Olmedo MD ADM AUTHOR: Giancarlo Phan MD * ALL edits or amendments must be made on the el [employer]/computer document * Subjective Free Text Subj Notes Free Text Subj Notes: No acute changes Objective Physical Exam Head/Eyes: atraumatic, normocephalic ENT: moist mucosal membranes, normal nose Neck: non-tender, supple/no meningismus, traches otomy prsent Cardiovascular: CV assessment: regular rate and rhythm, no murm ur Respiratory: no distress, coarse breathsounds, m echanically ventialted Abdomen: soft, non-tender Upper extremity: UE assessment: normal capillary refill, normal temperature Lower extremity: LE assessment: normal capillary refill, normal temperature, no edema Musculoskeletal: normal inspection Neuro/RADIOTELEGRAPHIST: vented via trachesotomy, not followin g commands Diagnosis, Assessment Plan Free Text DxA P Notes Free Text DxA P Notes: 1. Hypertensive urgency/emergency - presented with severely elevated BP requiring 2 IV infusions, subsequently suffered PEA cardiac arrest - BP control improving - cont hydralazine 100mg Q8H, labetalol 400mg Q 8H, clonidine patch has been increased to 0.3 - nifedipine 30mg QID, patients blood pressure much better controlled -We will continue to watch blood pressure very closely. Given current renal failure somewhat inhibits th e addition of Aldactone as well as thiazides as well as CECI/ARB's. -We will discuss with nephro logy about the need of having patient on CECI/ARB or spironolactone for better blood pressure control given that he is currently on dialysis. 2. Cardiac arrest - PEA in etiology, pt became hypothermic and sub sequently bradycardic 3. Type B aortic dissection s/p EVAR - has residual descending aortic dissect ion extending into iliacs. No evidence of rupture on CTA. Reviewed by vascular surgery - appreciate assitance - optimal BP Control as above 4. Acute on chronic systolic heart failure -Improved significantly 5. Shock - resolved 6. JENNIFER on CKD -On dialysis 7. Acute hypoxic respiratory failure - now has tracheostomy- per ICU team 8. Stroke: - CT head and MRI with evidence of prior CVA - TTE with possible PFO -will consider closure o f PFO when patient improves enough after discharge. Will follow. Please call if questions. [facility] Cardiology Electronically Signed by Giancarlo Phan MD on 06/28 at 0759 RPT #:[id number] END OF REPORT 2020-07-23 21:28:00-00:00 [facility]) Nephrology Progress Note REPORT#:[id number] REPORT STATUS: Signed DATE:07/23/20 TIME: 2127 PATIENT: JORGE GOINS UNIT #: [id number] ROOM/BED: [address] : [birth year] AGE: 34 SEX: M ATTEND: Luis M Olmedo MD ADM AUTHOR: Ceferino De La Garza MD * ALL edits or amendments must be made on the el [employer]/computer document * Subjective Comments: no new complaints seen at bedside good uop Objective General VS/I O: Vital Signs: Date Time Temp Pulse Resp B/P B/P Pulse O2 O2 Fl ow FiO2 Mean Ox Delivery Rate 07/23 2056 99 11 20 Tracheostomy collar 07/23 1900 69 122/58 81 100 07/23 1845 70 116/57 78 100 07/23 1830 66 115/56 78 100 07/23 1815 67 111/56 76 100 07/23 1801 69 100 07/23 1800 70 106/57 76 100 07/23 1745 69 104/52 73 100 07/23 1730 67 107/53 75 99 07/23 1715 66 125/58 84 100 07/23 1700 65 19 129/61 88 100 07/23 1645 66 125/56 81 100 07/23 1630 72 127/61 88 100 07/23 1615 68 19 127/60 87 100 07/23 1600 36.6 Tracheostomy collar 07/23 1600 68 19 132/60 86 100 07/23 1552 68 19 100 07/23 1545 69 125/55 81 100 07/23 1530 72 124/55 82 99 07/23 1515 74 123/58 83 99 07/23 1500 69 125/60 86 99 07/23 1446 71 121/57 79 99 07/23 1445 73 98 07/23 1430 67 19 121/57 83 100 07/23 1415 73 118/59 83 100 07/23 1400 73 118/58 82 100 07/23 1345 70 117/58 83 100 07/23 1330 75 128/59 85 100 07/23 1315 63 17 133/60 88 99 07/23 1300 65 17 136/67 92 100 07/23 1245 59 19 133/63 90 100 07/23 1243 59 18 135/60 89 100 07/23 1230 60 19 137/64 91 100 07/23 1215 63 17 137/61 91 100 07/23 1200 37.1 07/23 1200 64 20 137/63 90 100 07/23 1145 73 21 145/67 97 100 07/23 1130 64 19 143/66 95 100 07/23 1115 64 17 139/66 94 100 07/23 1107 65 17 144/68 97 100 07/23 1100 59 17 141/67 96 100 07/23 1045 61 19 146/74 103 100 07/23 1030 60 19 160/82 113 100 07/23 1015 61 18 155/79 110 100 07/23 1000 60 20 150/74 103 100 07/23 0945 59 20 148/71 101 100 07/23 0930 64 19 153/71 102 100 07/23 0915 68 20 148/68 97 100 07/23 0900 70 19 144/64 95 100 07/23 0857 100 5 28 Tracheostomy collar 07/23 0800 36.7 28 Tracheostomy collar 07/23 0800 28 Tracheostomy collar 07/23 0800 59 20 151/71 102 100 07/23 0719 62 21 144/65 94 100 07/23 0715 65 20 144/66 95 100 07/23 0700 66 21 141/66 94 100 07/23 0645 67 19 144/66 94 100 07/23 0644 71 19 100 07/23 0630 65 20 143/65 93 100 07/23 0615 67 19 137/63 91 100 07/23 0600 70 15 154/72 104 100 07/23 0545 61 21 155/74 104 99 07/23 0530 62 22 149/71 101 99 07/23 0515 68 139/70 101 97 07/23 0500 61 20 158/75 108 07/23 0445 62 19 153/71 102 07/23 0430 65 20 141/65 93 79 07/23 0415 58 115/56 80 79 07/23 0400 36.8 07/23 0400 59 21 115/56 80 78 07/23 0345 67 20 117/56 80 07/23 0331 67 19 127/59 85 07/23 0330 69 20 07/23 0315 67 21 134/64 92 100 07/23 0300 71 22 139/63 90 100 07/23 0245 71 21 135/60 86 100 07/23 0230 68 21 134/62 89 100 07/23 0215 68 20 129/61 88 100 07/23 0200 71 20 123/61 84 100 07/23 0145 67 21 120/58 81 100 07/23 0130 67 19 121/59 81 100 07/23 0115 72 19 120/61 82 01 0100 72 19 124/58 83 100 07/23 0045 74 20 127/60 84 100 07/23 0030 70 19 126/60 85 100 07/23 0015 68 18 132/62 89 100 07/23 0000 36.8 07/23 0000 62 21 128/58 83 100 07/22 2345 63 21 127/58 83 100 07/22 2330 62 21 125/58 82 100 07/22 2315 65 21 126/61 86 100 07/22 2300 66 21 126/61 85 100 07/22 2245 72 19 127/58 84 100 07/22 2230 65 22 120/57 80 100 07/22 2215 66 22 121/57 80 100 07/22 2200 68 19 122/57 81 100 07/22 2145 69 20 123/57 83 100 07/22 2130 76 15 134/63 91 99 24 hour I O ending at 0700: 07/23 0707/22 1900 Intake Total 200 1120.00 Output Total 825 900 Balance -625 220.00 Intake, IV 520.00 Intake, Oral 200 500 Intake, Oral 100 Supplement Output, Stool 300 300 Output, Urine 525 600 Patient 88.3 kg Weight Weight Bed scale Measurement Method PATIENT WEIGHT: Weight (lb): 194 Weight (oz): 10.69 Weight (kg): 88.300 Medications Active Meds + DC'd Last 24 Hrs Famotidine 20 MG DAILY PO Labetalol HCl 600 MG Q8HR PO Heparin Sodium (Porcine) 5,000 UNIT Q12HR SUBQ Losartan Potassium 50 MG BID PO Nifedipine 30 MG Q6HR FEED-TUBE Prednisone 30 MG DAILY PO Heparin Sodium (Porcine) 2,000 UNIT DIALYSIS-DOS E BEFORE IV (CKD) Heparin Sodium (Porcine) 5,000 UNIT DIALYSIS-DOS E AFTER MISC Sodium Chloride 1,000 ML ASDIR PRN IV Clonidine HCl 0.3 MG Q7D TRANSDERM (CKD) Nicardipine HCl 200 ML TITRATE IV Labetalol HCl 10 MG Q6H PRN PRN IV Acetaminophen 650 MG Q4H PRN PRN FEED-TUBE Isosorbide Mononitrate 30 MG BID FEED-TUBE Potassium Chloride 100 ML ASDIR PRN IV Potassium Bicarbonate/Citric Acid 20 MEQ ASDIR P O (CKD) Potassium Chloride 100 ML ASDIR PRN IV Hydralazine HCl 100 MG Q8HR PO Magnesium 100 ML ASDIR PRN IV Magnesium Sulfate 50 ML ASDIR PRN IV Magnesium Sulfate 100 ML ASDIR PRN IV Aspirin 81 MG DAILY FEED-TUBE Atorvastatin Calcium 40 MG DAILY FEED-TUBE Albuterol/Ipratropium 3 ML RTQ6H INH Dextrose/Water 25 ML ASDIR PRN IV Glucagon 1 MG ASDIR PRN IM Insulin Human Lispro LOW DOSE SCALE ASDIR SUBQ Physical Exam General appearance: awake ENT: moist mucous membranes Neck: no JVD, no masses or swelling Cardiovascular: normal heart sounds, regular rat e and rhythm Respiratory: aerating well, clear to auscultatio n Abdomen: normal bowel sounds, soft Extremities: no edema Musculoskeletal: decreased ROM 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 Results Findings/Data: Laboratory Tests 07/23 0212 Chemistry Sodium (137 - 145 mmol/L) 144 Potassium (3.4 - 5.0 mmol/L) 4.1 Chloride (98 - 107 mmol/L) 111 H Carbon Dioxide (22 - 30 mmol/L) 23 BUN (9 - 20 mg/dL) 76 H Creatinine (0.7 - 1.3 mg/dL) 4.7 H Glomerular Filtr Rate (>60) 19 L Glucose (74 - 106 mg/dL) 113 H POC Glucose (74 - 106 MG/DL) 102 Calcium (8.4 - 10.2 mg/dL) 8.0 L Magnesium (1.6 - 2.3 mg/dL) 2.1 Laboratory Tests 07/23 211 Hematology WBC (5.0 - 12.0 x10 3/uL) 9.0 RBC (4.70 - 6.10 x10 6/uL) 2.56 L Hgb (14.0 - 18.0 g/dL) 7.1 L Hct (37.0 - 49.0 %) 23.7 L MCV (80 - 94 fL) 93 MCH (27 - 31 pg) 27.7 MCHC (33 - 37 g/dL) 30.0 L RDW (11.5 - 15.5 %) 15.4 Plt Count (130 - 400 x10 3/uL) 222 MPV (9.4 - 16.4 fL) 10.9 Neut % (Auto) (43 - 65 %) 83.2 H Lymph % (Auto) (20.5 - 45.5 %) 6.8 L Citrus % (Auto) (5.5 - 11.7 %) 6.3 Eos % (Auto) (0.9 - 2.9 %) 2.3 Baso % (Auto) (0.2 - 1.0 %) 0.8 Neut # (Auto) (2.2 - 4.8 x10 3/uL) 7.50 H Lymph # (Auto) (1.3 - 2.9 x10 3/uL) 0.61 L Citrus # (Auto) (0.3 - 0.8 x10 3/uL) 0.57 Eos # (Auto) (0.0 - 0.2 x10 3/uL) 0.21 H Baso # (Auto) (0.0 - 0.1 x10 3/uL) 0.07 Immature Gran % (0.0 - 2.0 %) 0.6 Nucleated RBC % (0 - 1.0 %) 0.0 Diagnosis, Assessment Plan Free Text A P: JENNIFER hypotension AAA lactic acidosis severe metabolic acidosis- resolved Metabolic alkalosis - resolved GOOD UOP MONITOR FOR RECOVERY bp control per ICU team continue to monitor at 2130 RPT #:[id number] END OF REPORT 2020-07-23 10:18:00-00:00 [facility] Critical Care Progress Note REPORT#:[id number] REPORT STATUS: Signed DATE:07/23/20 TIME: 1018 PATIENT: JORGE GOINS UNIT #: [id number] ROOM/BED: [address] : [birth year] AGE: 34 SEX: M ATTEND: Raphael Davila MD ADM AUTHOR: Edy Olmedo MD * ALL edits or amendments must be made on the el [employer]/computer document * Subjective Chief Complaint: on TC mental status stable BP better controlled MRI planned Objective Physical Exam Head/Eyes: atraumatic, normocephalic Neck: full range of motion Cardiovascular: normal heart sounds, normal S1 S 2, normal rate and rhythm Respiratory/Chest: aerating well, clear to auscu ltation Abdomen: soft, non-tender, normal bowel sounds, no distention Extremities: no edema Neuro/RADIOTELEGRAPHIST: disoriented, alert Diagnosis, Assessment Plan Free text A P: 34 year old male with history of aortic dissecti on s/p EVAR came in for hypertensive urgency A/P: Neuro -MRI multiple ischemic cva Neuro status slowly improving More awake. following commands MRI spine ok Pulm -s/p trach On TC CV #s/p Cardiac Arrest - PEA hypotensive. ROSC achieved after 9 minutes - likely from cardiogenic shock EF 30-34% - Aortic dissection ruled out from CTA chest , a bdomen and pelvis #hx of EVAR for aortic dissection and h/o endole ak in the past - per vascular surgery -uncontrolled hypertension on cardene will titrate po meds to d/c cardene # Fever positive blood culture respiratory source'unlikley clabsi abx GI on tube feeidng Renal Acute renal failure on hd gi ppx: pepcid dvt ppx: heparin Diet: tube feeds condition stable prognosis guarded Transfer to IMU once off cardene Electronically Signed by Edy Olmedo MD on at 2132 RPT #:[id number] END OF REPORT 2020-07-23 10:05:00-00:00 [facility]) Neurology Progress Note REPORT#:[id number] REPORT STATUS: Signed DATE:07/23/20 TIME: 1005 PATIENT: JORGE GOINS UNIT #: [id number] ROOM/BED: [address] : [birth year] AGE: 34 SEX: M ATTEND: Luis M Olmedo MD ADM AUTHOR: Sinai Rogers DPM R2 * ALL edits or amendments must be made on the rimidi/computer document * Subjective Chief Complaint: Patient awake/alert. Endorses weakness in b/l le gs Review of Systems Constitutional: Denies: chills, fever. Cardiovascular: Denies: chest pain. Objective General VS: Last Documented: Result Date Time Pulse Ox 100 07/23 0857 FiO2 07/23 08 O2 Delivery Tracheostomy collar 07/23 856 O2 Flow Rate 5 07/23 0857 Temp 36.7 07/23 0800 B/P 144/66 07/23 0645 B/P Mean 94 07/23 06 Pulse 67 07/23 0645 Resp 19 07/23 0645 PATIENT WEIGHT: Weight (lb): 194 Weight (oz): 10.69 Weight (kg): 88.300 Physical Exam General appearance: respiratory support, alert, awake Head/Eyes: atraumatic, normocephalic ENT: moist mucosal membranes Neck: non-tender, no masses or swelling Cardiovascular: irregular rate and rhythm, murmu r Respiratory: on oxygen Abdomen: non-tender, normal bowel sounds, soft Results Findings/Data: Laboratory Tests 07/23 0212 1827 1152 Chemistry Sodium (137 - 145 mmol/L) 144 Potassium (3.4 - 5.0 mmol/L) 4.1 Chloride (98 - 107 mmol/L) 111 H Carbon Dioxide (22 - 30 mmol/L) 23 BUN (9 - 20 mg/dL) 76 H Creatinine (0.7 - 1.3 mg/dL) 4.7 H Glomerular Filtr Rate (>60) 19 L Glucose (74 - 106 mg/dL) 113 H POC Glucose (74 - 106 MG/DL) 102 91 93 Calcium (8.4 - 10.2 mg/dL) 8.0 L Magnesium (1.6 - 2.3 mg/dL) 2.1 Laboratory Tests 07/23 211 Hematology WBC (5.0 - 12.0 x10 3/uL) 9.0 RBC (4.70 - 6.10 x10 6/uL) 2.56 L Hgb (14.0 - 18.0 g/dL) 7.1 L Hct (37.0 - 49.0 %) 23.7 L MCV (80 - 94 fL) 93 MCH (27 - 31 pg) 27.7 MCHC (33 - 37 g/dL) 30.0 L RDW (11.5 - 15.5 %) 15.4 Plt Count (130 - 400 x10 3/uL) 222 MPV (9.4 - 16.4 fL) 10.9 Neut % (Auto) (43 - 65 %) 83.2 H Lymph % (Auto) (20.5 - 45.5 %) 6.8 L Citrus % (Auto) (5.5 - 11.7 %) 6.3 Eos % (Auto) (0.9 - 2.9 %) 2.3 Baso % (Auto) (0.2 - 1.0 %) 0.8 Neut # (Auto) (2.2 - 4.8 x10 3/uL) 7.50 H Lymph # (Auto) (1.3 - 2.9 x10 3/uL) 0.61 L Citrus # (Auto) (0.3 - 0.8 x10 3/uL) 0.57 Eos # (Auto) (0.0 - 0.2 x10 3/uL) 0.21 H Baso # (Auto) (0.0 - 0.1 x10 3/uL) 0.07 Immature Gran % (0.0 - 2.0 %) 0.6 Nucleated RBC % (0 - 1.0 %) 0.0 Radiology Data: Recent Impressions: RADIOLOGY - XR SWLW FUNC W/C V 07/22 1059 Report Impression - Status: SIGNED Entered: 07/22/2020 1305 IMPRESSION: Single episode of aspiration with th in barium administered by straw. No other episode of aspiration seen. For further details please refer to speech patho logist report. Fluoro time utilized 1.5 minutes. Impression By: [email or web address] - Sebastián Colon MD Diagnosis, Assessment Plan Free Text A P: Assessment 1. Acute encephalopathy - multifactorial - metab olic/hypertensive emergency/ acute stroke 2. Acute ischemic strokes, suspect embolic sourc e, + PFO, b/l lower extremity dopplers negative 3. s/p PEA arrest 06/11/20 4. hypertensive emergency - 5. acute respiratory failure, s/p trach and peg 6. complicated type b aortic dissection, in need of extension TEVAR when stable per vascular surgery 7. Bilateral LE weakness/ parapglegia- ?Severe c ritical illness myopathy Plan: -MRI brain (07/19) - no evidence of acute ischemi a -Whole spine MRI was not done due to extensive a rtifact (from aortic stent grafts) -Whole spine CT (07/19) unremarkable -consider PFO closure in future when medically s tabilized -continue current plan -PEG was pulled yesterday. Passed swallow study. Patient eating breakfast. No plans to replace PEG at this time Will d/w attending Dr. Chino Electronically Signed by Sinai Rogers DPM R2 on 0 07/23/20 at 1017 RPT #:[id number] END OF REPORT 2020-07-23 10:05:00-00:[address] [facility] ([facility]) Neurology Progress Note REPORT#:[id number] REPORT STATUS: Signed DATE:07/23/20 TIME: 1005 PATIENT: JORGE GOINS UNIT #: [id number] ROOM/BED: [address] : 86 AGE: 34 SEX: M ATTEND: Luis M Olmedo MD ADM AUTHOR: Sinai Rogers DPSiva R2 * ALL edits or amendments must be made on the [employer]/computer document * Sinai Rogers 07/23/20 1005: Subjective Chief Complaint: Patient awake/alert. Endorses weakness in b/l le gs Review of Systems Constitutional: Denies: chills, fever. Cardiovascular: Denies: chest pain. Objective General VS: Last Documented: Result Date Time Pulse Ox 100 07/23 0857 FiO2 07/23 0857 O2 Delivery Tracheostomy collar 07/23 0857 O2 Flow Rate 5 07/23 0857 Temp 36.7 07/23 0800 B/P 144/66 07/23 0645 B/P Mean 94 07/23 0645 Pulse 67 07/23 0645 Resp 19 07/23 0645 PATIENT WEIGHT: Weight (lb): 194 Weight (oz): 10.69 Weight (kg): 88.300 Physical Exam General appearance: respiratory support, alert, awake Head/Eyes: atraumatic, normocephalic ENT: moist mucosal membranes Neck: non-tender, no masses or swelling Cardiovascular: irregular rate and rhythm, murmu r Respiratory: on oxygen Abdomen: non-tender, normal bowel sounds, soft Results Findings/Data: Laboratory Tests 07/23 07/23 07/22 07/22 0212 0212 1827 1152 Chemistry Sodium (137 - 145 mmol/L) 144 Potassium (3.4 - 5.0 mmol/L) 4.1 Chloride (98 - 107 mmol/L) 111 H Carbon Dioxide (22 - 30 mmol/L) 23 BUN (9 - 20 mg/dL) 76 H Creatinine (0.7 - 1.3 mg/dL) 4.7 H Glomerular Filtr Rate (>60) 19 L Glucose (74 - 106 mg/dL) 113 H POC Glucose (74 - 106 MG/DL) 102 91 93 Calcium (8.4 - 10.2 mg/dL) 8.0 L Magnesium (1.6 - 2.3 mg/dL) 2.1 Laboratory Tests 07/23 0212 Hematology WBC (5.0 - 12.0 x10 3/uL) 9.0 RBC (4.70 - 6.10 x10 6/uL) 2.56 L Hgb (14.0 - 18.0 g/dL) 7.1 L Hct (37.0 - 49.0 %) 23.7 L MCV (80 - 94 fL) 93 MCH (27 - 31 pg) 27.7 MCHC (33 - 37 g/dL) 30.0 L RDW (11.5 - 15.5 %) 15.4 Plt Count (130 - 400 x10 3/uL) 222 MPV (9.4 - 16.4 fL) 10.9 Neut % (Auto) (43 - 65 %) 83.2 H Lymph % (Auto) (20.5 - 45.5 %) 6.8 L Citrus % (Auto) (5.5 - 11.7 %) 6.3 Eos % (Auto) (0.9 - 2.9 %) 2.3 Baso % (Auto) (0.2 - 1.0 %) 0.8 Neut # (Auto) (2.2 - 4.8 x10 3/uL) 7.50 H Lymph # (Auto) (1.3 - 2.9 x10 3/uL) 0.61 L Citrus # (Auto) (0.3 - 0.8 x10 3/uL) 0.57 Eos # (Auto) (0.0 - 0.2 x10 3/uL) 0.21 H Baso # (Auto) (0.0 - 0.1 x10 3/uL) 0.07 Immature Gran % (0.0 - 2.0 %) 0.6 Nucleated RBC % (0 - 1.0 %) 0.0 Radiology Data: Recent Impressions: RADIOLOGY - XR SWLW FUNC W/C V 07/22 1059 Report Impression - Status: SIGNED Entered: 07/22/2020 1305 IMPRESSION: Single episode of aspiration with th in barium administered by straw. No other episode of aspiration seen. For further details please refer to speech patho logist report. Fluoro time utilized 1.5 minutes. Impression By: LourdesRKMina - Sebastián Colon MD Diagnosis, Assessment Plan Free Text A P: Assessment 1. Acute encephalopathy - multifactorial - metab olic/hypertensive emergency/ acute stroke 2. Acute ischemic strokes, suspect embolic sourc e, + PFO, b/l lower extremity dopplers negative 3. s/p PEA arrest 06/11/20 4. hypertensive emergency - 5. acute respiratory failure, s/p trach and peg 6. complicated type b aortic dissection, in need of extension TEVAR when stable per vascular surgery 7. Bilateral LE weakness/ parapglegia- ?Severe c ritical illness myopathy Plan: -MRI brain (07/19) - no evidence of acute ischemi a -Whole spine MRI was not done due to extensive a rtifact (from aortic stent grafts) -Whole spine CT (07/19) unremarkable -consider PFO closure in future when medically s tabilized -continue current plan -PEG was pulled yesterday. Passed swallow study. Patient eating breakfast. No plans to replace PEG at this time Will d/w attending William Agarwal 07/23/20 1326: Diagnosis, Assessment Plan Free Text A P: agree with above note/ plan by resident Electronically Signed by Sinai Rogers DPM R2 on 0 07/23/20 at 1017 at 1326 RPT #:[id number] END OF REPORT 2020-07-22 23:43:00-00:00 [facility] Critical Care Progress Note REPORT#:[id number] REPORT STATUS: Signed DATE:07/22/20 TIME: 3 PATIENT: JORGE GOINS UNIT #: [id number] ROOM/BED: [address] : [birth year] AGE: 34 SEX: M ATTEND: Raphael Davila MD ADM AUTHOR: Edy Olmedo MD * ALL edits or amendments must be made on the el [employer]/computer document * Subjective Chief Complaint: on TC mental status stable BP better controlled MRI planned Objective Physical Exam Head/Eyes: atraumatic, normocephalic Neck: full range of motion Cardiovascular: normal heart sounds, normal S1 S 2, normal rate and rhythm Respiratory/Chest: aerating well, clear to auscu ltation Abdomen: soft, non-tender, normal bowel sounds, no distention Extremities: no edema Neuro/RADIOTELEGRAPHIST: disoriented, alert Diagnosis, Assessment Plan Free text A P: 34 year old male with history of aortic dissecti on s/p EVAR came in for hypertensive urgency A/P: Neuro -MRI multiple ischemic cva Neuro status slowly improving More awake. following commands MRI spine ok Pulm -s/p trach On TC CV #s/p Cardiac Arrest - PEA hypotensive. ROSC achieved after 9 minutes - likely from cardiogenic shock EF 30-34% - Aortic dissection ruled out from CTA chest , a bdomen and pelvis #hx of EVAR for aortic dissection and h/o endole ak in the past - per vascular surgery -uncontrolled hypertension on cardene will titrate po meds to d/c cardene # Fever positive blood culture respiratory source'unlikley clabsi abx GI on tube feeidng Renal Acute renal failure on hd gi ppx: pepcid dvt ppx: heparin Diet: tube feeds condition stable prognosis guarded Transfer to IMU once off cardene Electronically Signed by Edy Olmedo MD on at 2133 RPT #:[id number] END OF REPORT 2020-07-22 21:44:00-00:00 [facility] Nephrology Progress Note REPORT#:[id number] REPORT STATUS: Signed DATE:07/22/20 TIME: 2143 PATIENT: JORGE GOINS UNIT #: [id number] ROOM/BED: [address] : [birth year] AGE: 34 SEX: M ATTEND: Luis M Olmedo MD ADM AUTHOR: Ceferino De La Garza MD * ALL edits or amendments must be made on the rimidi/computer document * Subjective Comments: SEEN AT BEDSIDE GOOD UOP Objective General VS/I O: Vital Signs: Date Time Temp Pulse Resp B/P B/P Pulse O2 O2 F low FiO2 Mean Ox Delivery Rate 07/22 2000 100 5 28 Tracheostomy collar 07/22 1900 69 20 128/56 82 100 07/22 1845 69 23 130/60 86 100 07/22 1830 76 21 133/63 90 98 07/22 1815 66 22 133/60 87 100 07/22 1800 66 21 131/61 87 100 07/22 1745 67 22 128/61 88 100 07/22 1730 69 25 127/58 83 100 07/22 1715 69 23 121/56 80 100 07/22 1700 71 23 119/59 79 100 07/22 1645 73 26 118/57 82 100 07/22 1630 71 23 119/59 82 100 07/22 1615 71 19 116/59 81 100 07/22 1600 66 20 115/56 80 100 07/22 1545 74 19 114/58 79 100 07/22 1530 68 21 112/52 75 100 07/22 1515 72 20 115/53 77 100 07/22 1500 36.7 22 100 5 28 Tracheostomy collar 07/22 1500 77 23 113/53 77 99 07/22 1445 82 22 118/56 79 98 07/22 1441 85 24 119/57 81 99 07/22 1430 80 20 110/57 78 97 07/22 1415 79 20 126/60 86 98 07/22 1400 81 21 128/61 88 07/22 1345 86 23 135/63 90 07/22 1330 86 21 146/65 93 89 07/22 1315 85 20 139/66 95 100 07/22 1300 62 23 135/60 87 100 07/22 1245 65 22 138/63 90 100 07/22 1230 62 22 133/58 86 100 07/22 1215 65 20 137/63 90 100 07/22 1200 65 21 139/64 92 100 07/22 1132 76 30 145/65 93 97 07/22 1114 86 22 96 07/22 1100 36.7 16 95 10 40 Tracheostomy collar 07/22 1030 67 19 142/64 92 100 07/22 1000 66 18 147/65 93 100 07/22 0952 100 5 28 07/22 0930 70 19 148/65 93 100 07/22 0900 64 21 142/64 92 100 07/22 0845 70 20 149/65 93 98 07/22 0830 70 22 147/63 91 98 07/22 0815 71 22 147/57 91 99 07/22 0800 67 21 147/63 91 100 07/22 0730 5 28 Tracheostomy collar 07/22 0715 68 21 146/59 90 98 07/22 0700 36.6 16 99 5 28 Tracheostomy collar 07/22 0700 77 22 151/67 96 98 07/22 0630 75 22 140/63 91 99 07/22 0600 94 38 154/70 101 95 24 hour I O ending at 0700: 07/22 0700 07/21 1900 Intake Total 981.00 Output Total 750 1450 Balance -750 -469.00 Intake, IV 981.00 Output, 200 Hemodialysis Output, Stool 350 Output, Urine 750 900 Medications Active Meds + DC'd Last 24 Hrs Famotidine 20 MG DAILY PO Labetalol HCl 600 MG Q8HR PO Famotidine 20 MG Q24H IV (DC) Sodium Chloride 10 ML Heparin Sodium (Porcine) 5,000 UNIT Q12HR SUBQ Losartan Potassium 50 MG BID PO Nifedipine 30 MG Q6HR FEED-TUBE Prednisone 30 MG DAILY PO Heparin Sodium (Porcine) 2,000 UNIT DIALYSIS-DOS E BEFORE IV (CKD) Heparin Sodium (Porcine) 5,000 UNIT DIALYSIS-DOS E AFTER MISC Sodium Chloride 1,000 ML ASDIR PRN IV Clonidine HCl 0.3 MG Q7D TRANSDERM (CKD) Nicardipine HCl 200 ML TITRATE IV Labetalol HCl 10 MG Q6H PRN PRN IV Acetaminophen 650 MG Q4H PRN PRN FEED-TUBE Isosorbide Mononitrate 30 MG BID FEED-TUBE Potassium Chloride 100 ML ASDIR PRN IV Potassium Bicarbonate/Citric Acid 20 MEQ ASDIR P O (CKD) Potassium Chloride 100 ML ASDIR PRN IV Hydralazine HCl 100 MG Q8HR PO Magnesium 100 ML ASDIR PRN IV Magnesium Sulfate 50 ML ASDIR PRN IV Magnesium Sulfate 100 ML ASDIR PRN IV Aspirin 81 MG DAILY FEED-TUBE Atorvastatin Calcium 40 MG DAILY FEED-TUBE Albuterol/Ipratropium 3 ML RTQ6H INH Physical Exam General appearance: awake Head/eyes: normal conjunctiva/sclera Neck: trach in place Respiratory: symmetric expansion Genitourinary: zuñiga, urine (appears pink) Extremities: pedal edema improved Musculoskeletal: normal inspection 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 Hemodialysis access: Type: vascath Psychiatry: unable to evaluate Results Findings/Data: Laboratory Tests 07/22 07/22 07/22 07/22 1827 1152 0930 0343 Chemistry Sodium (137 - 145 mmol/L) 146 H Potassium (3.4 - 5.0 mmol/L) 4.0 Chloride (98 - 107 mmol/L) 113 H Carbon Dioxide (22 - 30 mmol/L) 22 BUN (9 - 20 mg/dL) 72 H Creatinine (0.7 - 1.3 mg/dL) 5.0 H Glomerular Filtr Rate (>60) 17 L Glucose (74 - 106 mg/dL) 95 POC Glucose (74 - 106 MG/DL) 91 93 89 Calcium (8.4 - 10.2 mg/dL) 8.3 L Laboratory Tests 07/22 0343 Hematology WBC (5.0 - 12.0 x10 3/uL) 9.8 RBC (4.70 - 6.10 x10 6/uL) 2.85 L Hgb (14.0 - 18.0 g/dL) 8.0 L Hct (37.0 - 49.0 %) 25.6 L MCV (80 - 94 fL) 90 MCH (27 - 31 pg) 28.1 MCHC (33 - 37 g/dL) 31.3 L RDW (11.5 - 15.5 %) 15.3 Plt Count (130 - 400 x10 3/uL) 251 MPV (9.4 - 16.4 fL) 11.3 Neut % (Auto) (43 - 65 %) 84.9 H Lymph % (Auto) (20.5 - 45.5 %) 6.8 L Citrus % (Auto) (5.5 - 11.7 %) 4.1 L Eos % (Auto) (0.9 - 2.9 %) 2.5 Baso % (Auto) (0.2 - 1.0 %) 1.1 H Neut # (Auto) (2.2 - 4.8 x10 3/uL) 8.33 H Lymph # (Auto) (1.3 - 2.9 x10 3/uL) 0.67 L Citrus # (Auto) (0.3 - 0.8 x10 3/uL) 0.40 Eos # (Auto) (0.0 - 0.2 x10 3/uL) 0.25 H Baso # (Auto) (0.0 - 0.1 x10 3/uL) 0.11 H Immature Gran % (0.0 - 2.0 %) 0.6 Nucleated RBC % (0 - 1.0 %) 0.0 Radiology data: Recent Impressions: RADIOLOGY - XR SWLW FUNC W/C V 07/22 1059 Report Impression - Status: SIGNED Entered: 07/22/2020 1305 IMPRESSION: Single episode of aspiration with th in barium administered by straw. No other episode of aspiration seen. For further details please refer to speech patho logist report. Fluoro time utilized 1.5 minutes. Impression By: Tracie Colon MD Diagnosis, Assessment Plan Free Text A P: JENNIFER hypotension AAA lactic acidosis severe metabolic acidosis- resolved Metabolic alkalosis - resolved GOOD UOP [employer] bp control per ICU team continue to monitor at 2130 RPT #:[id number] END OF REPORT 2020-07-22 11:06:00-00:00 [facility] Clinical Note REPORT#:[id number] REPORT STATUS: Signed DATE:07/22/20 TIME: 1106 PATIENT: JORGE GOINS UNIT #: [id number] ROOM/BED: [address] : [birth year] AGE: 35 SEX: M ATTEND: Raphael Davila MD ADM AUTHOR: Vic Amaya MD * ALL edits or amendments must be made on the el [employer]/computer document * Clinical Note Note: PEG was pulled Replacement of PEG on hold pending swallowing st udy Stoma has closed Electronically Signed by Vic Amaya MD on 08/17 at 0901 RPT #:[id number] END OF REPORT 2020-07-22 09:22:00-00:00 [facility] Neurology Progress Note REPORT#:[id number] REPORT STATUS: Signed DATE:07/22/20 TIME: 921 PATIENT: JORGE GOINS UNIT #: [id number] ROOM/BED: [address] : [birth year] AGE: 34 SEX: M ATTEND: Luis M Olmedo MD ADM AUTHOR: Sinai Rogers DPM R2 * ALL edits or amendments must be made on the [employer]/computer document * Subjective Chief Complaint: Patient awake/alert. Endorses weakness in b/l le gs Review of Systems Constitutional: Denies: chills, fever. Respiratory: Denies: SOB. Cardiovascular: Denies: chest pain. Objective General VS: Last Documented: Result Date Time Pulse Ox 100 07/22 0800 B/P 147/63 07/22 0800 B/P Mean 91 07/22 08 Pulse 67 07/22 0800 Resp 21 07/22 08 FiO2 28 07/22 0730 O2 Delivery Tracheostomy collar 07/22 729 O2 Flow Rate 5 07/22 07 Temp 36.6 07/22 0700 PATIENT WEIGHT: Weight (lb): 189 Weight (oz): 13.09 Weight (kg): 86.100 Physical Exam Head/Eyes: atraumatic, normocephalic ENT: moist mucosal membranes Neck: non-tender, no masses or swelling Cardiovascular: irregular rate and rhythm, murmu r Respiratory: intubated/mech vent Abdomen: non-tender, normal bowel sounds, soft Diagnosis, Assessment Plan Free Text A P: Assessment 1. Acute encephalopathy - multifactorial - metab olic/hypertensive emergency/ acute stroke 2. Acute ischemic strokes, suspect embolic sourc e, + PFO, b/l lower extremity dopplers negative 3. s/p PEA arrest 06/11/20 4. hypertensive emergency - 5. acute respiratory failure, s/p trach and peg 6. complicated type b aortic dissection, in need of extension TEVAR when stable per vascular surgery 7. Bilateral LE weakness/ parapglegia- ?Severe c ritical illness myopathy Plan: -MRI brain (07/19) - no evidence of acute ischemi a -Whole spine MRI was not done due to extensive a rtifact (from aortic stent grafts) -Whole spine CT (07/19) unremarkable -consider PFO closure in future when medically s tabilized -continue current plan Will d/w attending Dr. Chino Electronically Signed by Sinai Rogers DPM R2 on 0 07/22/20 at 0959 [facility] #:[id number] END OF REPORT 2020-07-22 09:22:00-00:00 [facility] Neurology Progress Note REPORT#:[id number] REPORT STATUS: Signed DATE:07/22/20 TIME: 921 PATIENT: JORGE GOINS UNIT #: [id number] [address] : [birth year] AGE: 34 SEX: M ATTEND: Luis M Olmedo MD ADM AUTHOR: Sinai Rogers DPM R2 * ALL edits or amendments must be made on the el [employer]/computer document * iSnai Rogers 07/22/20 0922: Subjective Chief Complaint: Patient awake/alert. Endorses weakness in b/l le gs Review of Systems Constitutional: Denies: chills, fever. Respiratory: Denies: SOB. Cardiovascular: Denies: chest pain. Objective General VS: Last Documented: Result Date Time Pulse Ox 100 07/22 0800 B/P 147/63 07/22 0800 B/P Mean 91 07/22 0800 Pulse 67 07/22 0800 Resp 21 07/22 0800 FiO2 28 07/22 0730 O2 Delivery Tracheostomy collar 07/22 0730 O2 Flow Rate 5 07/22 0730 Temp 36.6 07/22 0700 PATIENT WEIGHT: Weight (lb): 189 Weight (oz): 13.09 Weight (kg): 86.100 Physical Exam Head/Eyes: atraumatic, normocephalic ENT: moist mucosal membranes Neck: non-tender, no masses or swelling Cardiovascular: irregular rate and rhythm, murmu r Respiratory: intubated/mech vent Abdomen: non-tender, normal bowel sounds, soft Diagnosis, Assessment Plan Free Text A P: Assessment 1. Acute encephalopathy - multifactorial - metab olic/hypertensive emergency/ acute stroke 2. Acute ischemic strokes, suspect embolic sourc e, + PFO, b/l lower extremity dopplers negative 3. s/p PEA arrest 06/11/20 4. hypertensive emergency - 5. acute respiratory failure, s/p trach and peg 6. complicated type b aortic dissection, in need of extension TEVAR when stable per vascular surgery 7. Bilateral LE weakness/ parapglegia- ?Severe c ritical illness myopathy Plan: -MRI brain (07/19) - no evidence of acute ischemi a -Whole spine MRI was not done due to extensive a rtifact (from aortic stent grafts) -Whole spine CT (07/19) unremarkable -consider PFO closure in future when medically s tabilized -continue current plan Will d/w attending William Agarwal 07/22/20 1222: Diagnosis, Assessment Plan Free Text A P: agree with above note/ plan by resident Electronically Signed by Sinai Rogers DPM R2 on 0 07/22/20 at 0959 at 1222 RPT #:[id number] END OF REPORT 2020-07-21 23:14:00-00:00 [facility]) Critical Care Progress Note REPORT#:[id number] REPORT STATUS: Signed DATE:07/21/20 TIME: 2313 PATIENT: JORGE GOINS UNIT #: [id number] ROOM/BED: [address] : [birth year] AGE: 34 SEX: M ATTEND: Raphael Davila MD ADM AUTHOR: Edy Olmedo MD * ALL edits or amendments must be made on the rimidi/computer document * Subjective Chief Complaint: on TC mental status stable BP better controlled MRI planned Objective Physical Exam Head/Eyes: atraumatic, normocephalic Neck: full range of motion Cardiovascular: normal heart sounds, normal S1 S 2, normal rate and rhythm Respiratory/Chest: aerating well, clear to auscu ltation Abdomen: soft, non-tender, normal bowel sounds, no distention Extremities: no edema Neuro/RADIOTELEGRAPHIST: disoriented, alert Diagnosis, Assessment Plan Free text A P: 34 year old male with history of aortic dissecti on s/p EVAR came in for hypertensive urgency A/P: Neuro -MRI multiple ischemic cva Neuro status slowly improving More awake. following commands MRI spine ok Pulm -s/p trach On TC CV #s/p Cardiac Arrest - PEA hypotensive. ROSC achieved after 9 minutes - likely from cardiogenic shock EF 30-34% - Aortic dissection ruled out from CTA chest , a bdomen and pelvis #hx of EVAR for aortic dissection and h/o endole ak in the past - per vascular surgery -uncontrolled hypertension on cardene will titrate po meds to d/c cardene # Fever positive blood culture respiratory source'unlikley clabsi abx GI on tube feeidng Renal Acute renal failure on hd gi ppx: pepcid dvt ppx: heparin Diet: tube feeds condition stable prognosis guarded Transfer to IMU once off cardene Electronically Signed by Edy Olmedo MD on at 2133 RPT #:[id number] END OF REPORT 2020-07-21 22:36:00-00:[address] [facility] ([facility]) Vascular Surgery Progress Note REPORT#:[id number] REPORT STATUS: Signed DATE:07/21/20 TIME: 2235 PATIENT: JORGE GOINS UNIT #: [id number] ROOM/BED: [address] : [birth year] AGE: 34 SEX: M ATTEND: Yoseph Olmedo MD ADM AUTHOR: Kleber Newby MD * ALL edits or amendments must be made on the rimidi/computer document * Subjective Chief Complaint: Remains unable to move bilateral lower extremiti es HPI Patient doing well is more awake today. Patient tolerating trach collar well. Patient moving bilateral upper extremities howev er remains unable to move bilateral lower extremities. Creatinine remains elevated. Patient denies fevers chills nausea or vomiting. Objective General VS/I O Last Documented: Result Date Time Pulse Ox 28 07/21 2025 FiO2 100 07/21 2025 O2 Delivery Tracheostomy collar 07/21 2025 O2 Flow Rate 5 07/21 2025 Temp 97.6 07/21 1600 B/P 151/79 07/21 1550 Pulse 71 07/21 1550 Resp 17 07/21 1550 B/P Mean 92 07/21 0315 24 hour I O ending at 0700: 07/21 0700 07/20 1900 Intake Total 850.00 863.00 Output Total 1000 1350 Balance -150.00 -487.00 Intake, Free 90 Water Intake, IV 850.00 473.00 Intake, Tube 0 300 Feeding Number 1 Bowel Movements Output, Stool 150 50 Output, Urine 850 1300 Patient 86.1 kg Weight Weight Bed scale Measurement Method PATIENT WEIGHT: Weight (lb): 189 Weight (oz): 13.09 Weight (kg): 86.100 General appearance: alert, awake HEENT: anicteric Neck: trach Cardiovascular: regular rate Respiratory: symmetric expansion Abdomen: soft Genitourinary: zuñiga Extremities: palpable radial and dorsalis pedis pulses bilaterally 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, moving bilateral hands to comm and Skin: no flank or back ecchymosis Psychiatry: normal affect, normal mood Diagnosis, Assessment Plan Free Text A P: 34 year old male with complicated type B dissection in need of extension TEVAR when stable Keep BP less than 140mmhg with heart rate goal o f 60 bpm Extubate when feasible: Patient has now been tra ched, wean from vent as tolerated Will need further TEVAR when stable Vascular surgery will continue to follow closely . Patient remains on broad-spectrum antibi otics with ID following for antibiotic recommendations. Most recent blood cultures x2 no growth after 5 days which are now finalized. Given the patient's aortic endogr aft the patient would benefit from prolonged course of antibiotics given high risk of graft infection with previously positive blood cultures. Appreciate nephrology recommendations. Patient was taken for MRI however given high deg ree of artifact the scan was aborted. I spoke personally with the stent graft company [employer] noting that the patient is safe to undergo MRI with either 1.5 or 3 Sandi magnet as the stents are MRI conditional. However after discus sing at length with the offshore wind turbine technician it appears that due to the ar tifact generated by these stent grafts the spine was not visible and thus the study was canceled. Patient improving. Discussed with Joselyn the [employer] bojorquez practitioner. Vascular surgery will continue to follow. Electronically Signed by Kleber Newby MD on 06/27 12/14 at 2239 RPT #:[id number] END OF REPORT 2020-07-21 20:17:00-00:[address] [facility] ([facility] Cardiology Progress Note REPORT#:[id number] REPORT STATUS: Signed DATE:07/21/20 TIME: 2016 PATIENT: JORGE GOINS UNIT #: [id number] ROOM/BED: [address] : [birth year] AGE: 34 SEX: M ATTEND: Luis M Olmedo MD ADM AUTHOR: Giancarlo Phan MD * ALL edits or amendments must be made on the el [employer]/computer document * Subjective Free Text Subj Notes Free Text Subj Notes: Patient talking more more. He is able to squeeze his hands otherwise really no other acute changes. Objective Physical Exam Head/Eyes: atraumatic, normocephalic ENT: moist mucosal membranes, normal nose Neck: non-tender, supple/no meningismus, traches otomy prsent Cardiovascular: CV assessment: regular rate and rhythm, no murm ur Respiratory: no distress, coarse breathsounds, m echanically ventialted Abdomen: soft, non-tender Upper extremity: UE assessment: normal capillary refill, normal temperature Lower extremity: LE assessment: normal capillary refill, normal temperature, no edema Musculoskeletal: normal inspection Neuro/RADIOTELEGRAPHIST: vented via trachesotomy, not followin g commands Diagnosis, Assessment Plan Free Text DxA P Notes Free Text DxA P Notes: 1. Hypertensive urgency/emergency - presented with severely elevated BP requiring 2 IV infusions, subsequently suffered PEA cardiac arrest - BP control improving - cont hydralazine 100mg Q8H, labetalol 400mg Q 8H, clonidine patch has been increased to 0.3 - nifedipine 30mg QID, patients blood pressure much better controlled -We will continue to watch blood pressure very closely. Given current renal failure somewhat inhibits th e addition of Aldactone as well as thiazides as well as CECI/ARB's. -We will discuss with nephro logy about the need of having patient on CECI/ARB or spironolactone for better blood pressure control given that he is currently on dialysis. 2. Cardiac arrest - PEA in etiology, pt became hypothermic and sub sequently bradycardic 3. Type B aortic dissection s/p EVAR - has residual descending aortic dissect ion extending into iliacs. No evidence of rupture on CTA. Reviewed by vascular surgery - appreciate assitance - optimal BP Control as above 4. Acute on chronic systolic heart failure -Improved significantly 5. Shock - resolved 6. JENNIFER on CKD -On dialysis 7. Acute hypoxic respiratory failure - now has tracheostomy- per ICU team 8. Stroke: - CT head and MRI with evidence of prior CVA - TTE with possible PFO -will consider closure o f PFO when patient improves enough after discharge. Will follow. Please call if questions. [facility] Cardiology Electronically Signed by Giancarlo Phan MD on 06/27 12/14 at 2018 RPT #:[id number] END OF REPORT 2020-07-21 20:08:00-00:[address] [facility] ([facility]) Nephrology Progress Note REPORT#:[id number] REPORT STATUS: Signed DATE:07/21/20 TIME: 2007 PATIENT: JORGE GOINS UNIT #: [id number] ROOM/BED: [address] : [birth year] AGE: 34 SEX: M ATTEND: Luis M Olmedo MD ADM AUTHOR: Ceferino De La Garza MD * ALL edits or amendments must be made on the rimidi/computer document * Subjective Comments: seen at bedside good uop Objective General VS/I O: Vital Signs: Date Time Temp Pulse Resp B/P B/P Pulse O2 O2 F low FiO2 Mean Ox Delivery Rate 07/21 1600 36.4 5 28 Tracheostomy collar 07/21 1550 36.7 71 17 151/79 100 07/21 1400 36.4 73 19 145/65 100 07/21 1200 36.4 28 Tracheostomy collar 07/21 0807 100 5 28 Tracheostomy collar 07/21 0800 36.7 5 28 Tracheostomy collar 07/21 0715 5 28 Tracheostomy collar 07/21 0400 37.0 99 Tracheostomy collar 07/21 0315 68 20 138/63 92 99 07/21 0300 68 21 142/66 95 97 07/21 0245 72 23 139/63 91 100 07/21 0230 76 27 139/63 92 99 07/21 0215 78 34 138/64 93 98 07/21 0200 72 22 136/64 92 99 07/21 0145 77 36 140/63 92 99 07/21 0130 78 31 141/66 95 100 07/21 0115 79 24 136/61 88 100 07/21 0100 76 22 137/62 89 100 07/21 0045 79 25 137/57 88 98 07/21 0030 77 21 146/67 97 98 07/21 0015 71 22 140/63 91 99 07/21 0000 79 31 141/64 92 87 07/21 0000 36.9 100 07/20 2345 76 31 143/65 94 95 07/20 2330 80 41 137/66 93 100 07/20 2315 72 22 144/66 95 100 07/20 2300 66 20 146/67 97 100 07/20 2245 69 19 144/68 96 100 07/20 2230 70 20 145/67 97 100 07/20 2215 68 20 143/66 95 100 07/20 2200 68 19 143/66 95 100 07/20 2145 72 20 143/64 95 100 07/20 2130 66 23 141/66 95 100 07/205 71 19 142/67 94 100 07/20 2100 71 22 142/65 93 100 07/20 2044 68 22 141/64 92 100 07/20 2036 100 5 28 Tracheostomy collar 07/20 2029 68 22 138/61 90 100 07/20 2014 68 25 140/64 92 98 24 hour I O ending at 0700: 07/21 0700 07/20 1900 Intake Total 850.00 863.00 Output Total 1000 1350 Balance -150.00 -487.00 Intake, Free 90 Water Intake, IV 850.00 473.00 Intake, Tube 0 300 Feeding Number 1 Bowel Movements Output, Stool 150 50 Output, Urine 850 1300 Patient 86.1 kg Weight Weight Bed scale Measurement Method Medications Active Meds + DC'd Last 24 Hrs Labetalol HCl 600 MG Q8HR PO Famotidine 20 MG Q24H IV Sodium Chloride 10 ML Heparin Sodium (Porcine) 5,000 UNIT Q12HR SUBQ Heparin Sodium (Porcine) 0 .STK-MED ONE .ROUTE ( DC) Heparin Sodium (Porcine) 0 .STK-MED ONE .ROUTE ( DC) Losartan Potassium 50 MG BID PO Nifedipine 30 MG Q6HR FEED-TUBE Prednisone 30 MG DAILY PO Heparin Sodium (Porcine) 2,000 UNIT DIALYSIS-DOS E BEFORE IV (CKD) Heparin Sodium (Porcine) 5,000 UNIT DIALYSIS-DOS E AFTER MISC Sodium Chloride 1,000 ML ASDIR PRN IV Clonidine HCl 0.3 MG Q7D TRANSDERM (CKD) Nicardipine HCl 200 ML TITRATE IV Labetalol HCl 10 MG Q6H PRN PRN IV Acetaminophen 650 MG Q4H PRN PRN FEED-TUBE Isosorbide Mononitrate 30 MG BID FEED-TUBE Potassium Chloride 100 ML ASDIR PRN IV Potassium Bicarbonate/Citric Acid 20 MEQ ASDIR P O (CKD) Potassium Chloride 100 ML ASDIR PRN IV Hydralazine HCl 100 MG Q8HR PO Labetalol HCl 400 MG Q8HR PO (DC) Magnesium 100 ML ASDIR PRN IV Magnesium Sulfate 50 ML ASDIR PRN IV Magnesium Sulfate 100 ML ASDIR PRN IV Aspirin 81 MG DAILY FEED-TUBE Atorvastatin Calcium 40 MG DAILY FEED-TUBE Albuterol/Ipratropium 3 ML RTQ6H INH Dextrose/Water 25 ML ASDIR PRN IV Glucagon 1 MG ASDIR PRN IM Insulin Human Lispro LOW DOSE SCALE ASDIR SUBQ Sterile Water 1 ML ASDIR PRN IM Physical Exam General appearance: awake Head/eyes: normal conjunctiva/sclera Neck: trach in place Respiratory: symmetric expansion Genitourinary: zuñiga, urine (appears pink) Extremities: pedal edema improved Musculoskeletal: normal inspection 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 Hemodialysis access: Type: vascath Psychiatry: unable to evaluate Results Findings/Data: Laboratory Tests 07/21 07/21 07/21 1723 1345 0241 Chemistry Sodium (137 - 145 mmol/L) 144 Potassium (3.4 - 5.0 mmol/L) 3.9 Chloride (98 - 107 mmol/L) 111 H Carbon Dioxide (22 - 30 mmol/L) 19 L BUN (9 - 20 mg/dL) 82 H Creatinine (0.7 - 1.3 mg/dL) 5.8 H Glomerular Filtr Rate (>60) 15 L Glucose (74 - 106 mg/dL) 98 POC Glucose (74 - 106 MG/DL) 89 95 Calcium (8.4 - 10.2 mg/dL) 7.9 L Laboratory Tests 07/21 07/21 1803 0241 Hematology WBC (5.0 - 12.0 x10 3/uL) 9.1 8.3 RBC (4.70 - 6.10 x10 6/uL) 2.88 L 2.88 L Hgb (14.0 - 18.0 g/dL) 8.1 L 8.0 L Hct (37.0 - 49.0 %) 25.8 L 25.4 L MCV (80 - 94 fL) 90 88 MCH (27 - 31 pg) 28.1 27.8 MCHC (33 - 37 g/dL) 31.4 L 31.5 L RDW (11.5 - 15.5 %) 15.4 15.3 Plt Count (130 - 400 x10 3/uL) 223 211 MPV (9.4 - 16.4 fL) 11.1 11.1 Neut % (Auto) (43 - 65 %) 84.1 H 84.0 H Lymph % (Auto) (20.5 - 45.5 %) 7.3 L 7.6 L Citrus % (Auto) (5.5 - 11.7 %) 4.3 L 5.2 L Eos % (Auto) (0.9 - 2.9 %) 2.2 1.7 Baso % (Auto) (0.2 - 1.0 %) 0.8 0.8 Neut # (Auto) (2.2 - 4.8 x10 3/uL) 7.61 H 6.93 H Lymph # (Auto) (1.3 - 2.9 x10 3/uL) 0.66 L 0.63 L Citrus # (Auto) (0.3 - 0.8 x10 3/uL) 0.39 0.43 Eos # (Auto) (0.0 - 0.2 x10 3/uL) 0.20 0.14 Baso # (Auto) (0.0 - 0.1 x10 3/uL) 0.07 0.07 Immature Gran % (0.0 - 2.0 %) 1.3 0.7 Nucleated RBC % (0 - 1.0 %) 0.0 0.0 Diagnosis, Assessment Plan Free Text A P: JENNIFER hypotension AAA lactic acidosis severe metabolic acidosis- resolved Metabolic alkalosis - resolved HD attempted today for clearance poor flows =- catheter eventually got pulled out by pt will monitor for renal recovery- hold off replac ing catheter for now bp control per ICU team continue to monitor at 2130 RPT #:[id number] END OF REPORT 2020-07-21 09:38:00-00:[address] [facility] ([facility]) Neurology Progress Note REPORT#:[id number] REPORT STATUS: Signed DATE:07/21/20 TIME: 937 PATIENT: JORGE GOINS UNIT #: [id number] [address] : [birth year] AGE: 34 SEX: M ATTEND: Luis M Olmedo MD ADM AUTHOR: Sinai Rogers DPM R2 * ALL edits or amendments must be made on the el [employer]/computer document * Subjective Chief Complaint: Patient awake/alert. He continues to have signif icant weakness in b/l legs Review of Systems Constitutional: Denies: chills, fever. Cardiovascular: Denies: chest pain. Objective General VS: Last Documented: Result Date Time Pulse Ox 100 07/21 08 FiO2 28 07/21 0807 O2 Delivery Tracheostomy collar 07/21 806 O2 Flow Rate 5 07/21 08 Temp 36.7 07/21 0800 B/P 138/63 07/21 0315 B/P Mean 92 07/21 314 Pulse 68 07/21 0315 Resp 20 07/21 314 PATIENT WEIGHT: Weight (lb): 189 Weight (oz): 13.09 Weight (kg): 86.100 Physical Exam General appearance: alert, awake Head/Eyes: atraumatic, normocephalic ENT: moist mucosal membranes Neck: non-tender, no masses or swelling Cardiovascular: irregular rate and rhythm, murmu r Respiratory: intubated/mech vent Abdomen: non-tender, normal bowel sounds, soft Results Findings/Data: Laboratory Tests 07/21 07/20 07/20 0241 1756 1207 Chemistry Sodium (137 - 145 mmol/L) 144 Potassium (3.4 - 5.0 mmol/L) 3.9 Chloride (98 - 107 mmol/L) 111 H Carbon Dioxide (22 - 30 mmol/L) 19 L BUN (9 - 20 mg/dL) 82 H Creatinine (0.7 - 1.3 mg/dL) 5.8 H Glomerular Filtr Rate (>60) 15 L Glucose (74 - 106 mg/dL) 98 POC Glucose (74 - 106 MG/DL) 112 H 69 L Calcium (8.4 - 10.2 mg/dL) 7.9 L Laboratory Tests 07/21 0241 Hematology WBC (5.0 - 12.0 x10 3/uL) 8.3 RBC (4.70 - 6.10 x10 6/uL) 2.88 L Hgb (14.0 - 18.0 g/dL) 8.0 L Hct (37.0 - 49.0 %) 25.4 L MCV (80 - 94 fL) 88 MCH (27 - 31 pg) 27.8 MCHC (33 - 37 g/dL) 31.5 L RDW (11.5 - 15.5 %) 15.3 Plt Count (130 - 400 x10 3/uL) 211 MPV (9.4 - 16.4 fL) 11.1 Neut % (Auto) (43 - 65 %) 84.0 H Lymph % (Auto) (20.5 - 45.5 %) 7.6 L Citrus % (Auto) (5.5 - 11.7 %) 5.2 L Eos % (Auto) (0.9 - 2.9 %) 1.7 Baso % (Auto) (0.2 - 1.0 %) 0.8 Neut # (Auto) (2.2 - 4.8 x10 3/uL) 6.93 H Lymph # (Auto) (1.3 - 2.9 x10 3/uL) 0.63 L Citrus # (Auto) (0.3 - 0.8 x10 3/uL) 0.43 Eos # (Auto) (0.0 - 0.2 x10 3/uL) 0.14 Baso # (Auto) (0.0 - 0.1 x10 3/uL) 0.07 Immature Gran % (0.0 - 2.0 %) 0.7 Nucleated RBC % (0 - 1.0 %) 0.0 Radiology Data: Recent Impressions: RADIOLOGY - XR CHEST 1 V 07/20 1902 Report Impression - Status: SIGNED Entered: 07/20/20202029 Impression: 1. No radiographic evidence of acute cardiopulmo nary disease. Impression By: Adolfo Dewitt MD Diagnosis, Assessment Plan Free Text A P: Assessment 1. Acute encephalopathy - multifactorial - metab olic/hypertensive emergency/ acute stroke 2. Acute ischemic strokes, suspect embolic sourc e, + PFO, b/l lower extremity dopplers negative 3. s/p PEA arrest 06/11/20 4. hypertensive emergency - 5. acute respiratory failure, s/p trach and peg 6. complicated type b aortic dissection, in need of extension TEVAR when stable per vascular surgery 7. Bilateral LE weakness/ parapglegia- ?Severe c ritical illness myopathy Plan: -MRI brain (07/19) - no evidence of acute ischemi a -Whole spine MRI was not done due to extensive a rtifact (from aortic stent grafts) -Whole spine CT (07/19) unremarkable -consider PFO closure in future when medically s tabilized -HD per nephrology Will d/w attending Dr. Chino Electronically Signed by Sinai Rogers DPM R2 on 0 07/21/20 at 0952 RPT #:[id number] END OF REPORT 2020-07-21 09:38:00-00:00 [facility] Neurology Progress Note REPORT#:[id number] REPORT STATUS: Signed DATE:07/21/20 TIME: 937 PATIENT: JORGE GOINS UNIT #: [id number] ROOM[address]BED: [address] : [birth year] AGE: 34 SEX: M ATTEND: Luis M Olmedo MD ADM AUTHOR: Sinai Rogers DPM R2 * ALL edits or amendments must be made on the [employer]/computer document * Sinai Rogers 07/21/20 0938: Subjective Chief Complaint: Patient awake/alert. He continues to have signif icant weakness in b/l legs Review of Systems Constitutional: Denies: chills, fever. Cardiovascular: Denies: chest pain. Objective General VS: Last Documented: Result Date Time Pulse Ox 100 07/21 0807 FiO2 28 07/21 0807 O2 Delivery Tracheostomy collar 07/21 806 O2 Flow Rate 5 07/21 08 Temp 36.7 07/21 0800 B/P 138/63 07/21 0315 B/P Mean 92 07/21 031 Pulse 68 07/21 031 Resp 20 07/21 031 PATIENT WEIGHT: Weight (lb): 189 Weight (oz): 13.09 Weight (kg): 86.100 Physical Exam General appearance: alert, awake Head/Eyes: atraumatic, normocephalic ENT: moist mucosal membranes Neck: non-tender, no masses or swelling Cardiovascular: irregular rate and rhythm, murmu r Respiratory: intubated/mech vent Abdomen: non-tender, normal bowel sounds, soft Results Findings/Data: Laboratory Tests 07/211 1756 1207 Chemistry Sodium (137 - 145 mmol/L) 144 Potassium (3.4 - 5.0 mmol/L) 3.9 Chloride (98 - 107 mmol/L) 111 H Carbon Dioxide (22 - 30 mmol/L) 19 L BUN (9 - 20 mg/dL) 82 H Creatinine (0.7 - 1.3 mg/dL) 5.8 H Glomerular Filtr Rate (>60) 15 L Glucose (74 - 106 mg/dL) 98 POC Glucose (74 - 106 MG/DL) 112 H 69 L Calcium (8.4 - 10.2 mg/dL) 7.9 L Laboratory Tests 07/211 Hematology WBC (5.0 - 12.0 x10 3/uL) 8.3 RBC (4.70 - 6.10 x10 6/uL) 2.88 L Hgb (14.0 - 18.0 g/dL) 8.0 L Hct (37.0 - 49.0 %) 25.4 L MCV (80 - 94 fL) 88 MCH (27 - 31 pg) 27.8 MCHC (33 - 37 g/dL) 31.5 L RDW (11.5 - 15.5 %) 15.3 Plt Count (130 - 400 x10 3/uL) 211 MPV (9.4 - 16.4 fL) 11.1 Neut % (Auto) (43 - 65 %) 84.0 H Lymph % (Auto) (20.5 - 45.5 %) 7.6 L Citrus % (Auto) (5.5 - 11.7 %) 5.2 L Eos % (Auto) (0.9 - 2.9 %) 1.7 Baso % (Auto) (0.2 - 1.0 %) 0.8 Neut # (Auto) (2.2 - 4.8 x10 3/uL) 6.93 H Lymph # (Auto) (1.3 - 2.9 x10 3/uL) 0.63 L Citrus # (Auto) (0.3 - 0.8 x10 3/uL) 0.43 Eos # (Auto) (0.0 - 0.2 x10 3/uL) 0.14 Baso # (Auto) (0.0 - 0.1 x10 3/uL) 0.07 Immature Gran % (0.0 - 2.0 %) 0.7 Nucleated RBC % (0 - 1.0 %) 0.0 Radiology Data: Recent Impressions: RADIOLOGY - XR CHEST 1 V 07/20 1902 Report Impression - Status: SIGNED Entered: 07/20/20202029 Impression: 1. No radiographic evidence of acute cardiopulmo nary disease. Impression By: Adolfo Dewitt MD Diagnosis, Assessment Plan Free Text A P: Assessment 1. Acute encephalopathy - multifactorial - metab olic/hypertensive emergency/ acute stroke 2. Acute ischemic strokes, suspect embolic sourc e, + PFO, b/l lower extremity dopplers negative 3. s/p PEA arrest 06/11/20 4. hypertensive emergency - 5. acute respiratory failure, s/p trach and peg 6. complicated type b aortic dissection, in need of extension TEVAR when stable per vascular surgery 7. Bilateral LE weakness/ parapglegia- ?Severe c ritical illness myopathy Plan: -MRI brain (07/19) - no evidence of acute ischemi a -Whole spine MRI was not done due to extensive a rtifact (from aortic stent grafts) -Whole spine CT (07/19) unremarkable -consider PFO closure in future when medically s tabilized -HD per nephrology Will d/w attending William Agarwal 07/21/20 1201: Diagnosis, Assessment Plan Free Text A P: agree with above note/ plan by resident Electronically Signed by Sinai Rogers DPM R2 on 0 07/21/20 at 0952 at 1201 RPT #:[id number] END OF REPORT 2020-07-20 20:22:00-00:[address] [facility] ([facility]) Nephrology Progress Note REPORT#:[id number] REPORT STATUS: Signed DATE:07/20/20 TIME: 2021 PATIENT: JORGE GOINS UNIT #: [id number] ROOM/BED: [address] : [birth year] AGE: 34 SEX: M ATTEND: Luis M Olmedo MD ADM AUTHOR: Ceferino De La Garza MD * ALL edits or amendments must be made on the [employer] document * Subjective Comments: Seen at bedside, oliguric. Objective General VS/I O: Vital Signs: Date Time Temp Pulse Resp B/P B/P Pulse O2 O2 F low FiO2 Mean Ox Delivery Rate 07/20 1834 75 21 100 07/20 1830 75 24 149/70 100 99 07/20 1815 68 19 141/66 95 99 07/20 1745 74 24 146/71 97 99 07/20 1730 78 46 146/66 98 100 07/20 1715 78 22 144/67 97 100 07/20 1700 72 21 142/66 93 100 07/20 1645 80 26 144/66 95 100 07/20 1630 72 23 140/64 93 96 07/20 1615 66 25 140/64 92 100 07/20 1600 67 24 137/64 91 100 07/20 1545 72 29 146/69 95 98 07/20 1530 76 28 144/71 98 99 07/20 1515 74 26 148/65 98 99 07/20 1500 36.6 Tracheostomy collar 07/20 1500 72 23 147/67 96 100 07/20 1445 74 26 146/67 95 100 07/20 1430 79 29 146/71 99 100 07/20 1415 81 29 144/71 100 100 07/20 1400 78 24 133/66 93 96 07/20 1345 77 28 142/68 98 100 07/20 1330 71 23 139/66 93 100 07/20 1315 74 20 141/70 96 98 07/20 1300 80 30 139/67 95 98 07/20 1245 72 23 137/67 93 98 07/20 1230 71 23 131/65 94 97 07/20 1215 78 27 143/71 97 98 07/20 1200 79 31 141/70 99 100 07/20 1145 73 25 139/68 94 97 07/20 1130 74 24 140/67 96 100 07/20 1115 72 24 140/65 93 97 07/20 1100 36.9 Room air 07/20 1100 74 27 144/67 96 99 07/20 1045 72 24 142/67 95 99 07/20 1030 75 28 140/66 93 100 01/25 1015 75 27 137/65 90 97 01/25 1000 79 36 142/68 95 87 01/25 0958 87 36 147/70 100 91 01/25 0941 87 25 140/66 93 96 01/25 0936 90 29 139/66 92 96 01/25 0930 87 31 133/63 90 97 01/25 0926 79 26 141/65 93 97 01/25 0915 80 29 139/64 91 96 01/25 0900 79 27 140/67 94 95 01/25 0845 79 24 139/67 96 95 01/25 0830 80 26 139/65 94 94 01/25 0828 93 5 28 Tracheostomy collar 01/25 0815 77 24 140/66 93 95 01/25 0800 75 24 135/63 91 96 01/25 0745 81 24 137/64 92 94 01/25 0733 Tracheostomy collar 01/25 0730 76 25 138/64 92 94 01/25 0715 76 24 139/65 93 94 01/25 0700 36.7 Room air 01/25 0700 80 26 146/68 98 91 01/25 0652 78 27 145/68 97 91 01/25 0645 81 27 151/70 101 90 01/25 0630 74 27 147/67 97 90 01/25 0615 76 26 145/65 95 93 01/25 0600 74 24 144/68 97 95 01/25 0545 74 21 141/66 95 93 01/25 0530 74 37 95 01/25 0500 75 22 98 01/25 0445 78 25 145/66 95 100 01/25 0430 71 22 147/65 94 99 01/25 0415 69 24 147/66 95 99 01/25 0400 72 23 145/64 92 99 01/25 0345 77 22 142/64 92 98 01/25 0330 71 22 143/65 93 99 01/25 0315 71 22 141/63 92 99 01/25 0300 70 20 143/65 94 99 01/25 0245 71 23 143/65 94 99 01/25 0230 71 21 141/61 91 100 01/25 0215 71 21 136/62 89 100 01/25 0200 69 22 133/59 87 99 01/25 0145 68 22 134/59 86 98 01/25 0130 71 22 130/60 86 98 01/25 0115 67 24 128/60 87 96 01/25 0100 69 22 134/56 85 94 07/20 0045 72 23 133/60 87 95 07/20 0030 70 24 135/58 84 95 07/20 0015 76 20 138/56 86 97 07/20 0000 75 27 140/64 92 97 07/19 2309 72 21 100 07/19 2300 70 21 131/62 89 100 07/19 2245 71 21 131/58 85 100 07/19 2230 71 19 131/58 84 99 07/19 2215 69 20 131/57 85 99 07/19 2200 69 19 130/58 84 100 07/19 2145 71 22 129/58 83 100 07/19 2130 68 19 134/60 86 100 07/195 70 19 134/62 86 99 07/19 2100 68 19 133/60 87 100 07/19 2058 100 Room air 07/19 2044 73 19 131/57 86 100 07/19 2030 67 18 139/63 91 99 24 hour I O ending at 0700: 07/20 0700 07/19 1900 Intake Total 730.00 Output Total 600 Balance 130.00 Intake, Free 100 Water Intake, IV 270.00 Intake, Tube 360 Feeding Output, Stool 200 Output, Urine 400 Patient 105.3 kg Weight Weight Bed scale Measurement Method Medications Active Meds + DC'd Last 24 Hrs Losartan Potassium 50 MG BID PO Nifedipine 30 MG Q6HR FEED-TUBE Prednisone 30 MG DAILY PO Heparin Sodium (Porcine) 2,000 UNIT DIALYSIS-DOS E BEFORE IV (CKD) Heparin Sodium (Porcine) 5,000 UNIT DIALYSIS-DOS E AFTER MISC Sodium Chloride 1,000 ML ASDIR PRN IV Clonidine HCl 0.3 MG Q7D TRANSDERM (CKD) Nicardipine HCl 200 ML TITRATE IV Labetalol HCl 10 MG Q6H PRN PRN IV Acetaminophen 650 MG Q4H PRN PRN FEED-TUBE Isosorbide Mononitrate 30 MG BID FEED-TUBE Potassium Chloride 100 ML ASDIR PRN IV Potassium Bicarbonate/Citric Acid 20 MEQ ASDIR P O (CKD) Potassium Chloride 100 ML ASDIR PRN IV Hydralazine HCl 100 MG Q8HR PO Labetalol HCl 400 MG Q8HR PO Magnesium 100 ML ASDIR PRN IV Magnesium Sulfate 50 ML ASDIR PRN IV Magnesium Sulfate 100 ML ASDIR PRN IV Aspirin 81 MG DAILY FEED-TUBE Atorvastatin Calcium 40 MG DAILY FEED-TUBE Albuterol/Ipratropium 3 ML RTQ6H INH Dextrose/Water 25 ML ASDIR PRN IV Glucagon 1 MG ASDIR PRN IM Insulin Human Lispro LOW DOSE SCALE ASDIR SUBQ Sterile Water 1 ML ASDIR PRN IM Famotidine 20 MG DAILY PO (DC) Heparin Sodium (Porcine) 5,000 UNIT Q12HR SUBQ ( DC) Physical Exam General appearance: awake Head/eyes: normal conjunctiva/sclera Neck: trach in place Respiratory: symmetric expansion Genitourinary: zuñiga, urine (appears pink) Extremities: pedal edema improved Musculoskeletal: normal inspection 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, oriented X 3 Hemodialysis access: Type: vascath Psychiatry: unable to evaluate Results Findings/Data: Laboratory Tests 07/20 07/20 07/20 1756 1207 0358 Chemistry Sodium (137 - 145 mmol/L) 142 Potassium (3.4 - 5.0 mmol/L) 3.5 Chloride (98 - 107 mmol/L) 110 H Carbon Dioxide (22 - 30 mmol/L) 21 L BUN (9 - 20 mg/dL) 77 H Creatinine (0.7 - 1.3 mg/dL) 5.6 H Glomerular Filtr Rate (>60) 15 L Glucose (74 - 106 mg/dL) 90 POC Glucose (74 - 106 MG/DL) 112 H 69 L Calcium (8.4 - 10.2 mg/dL) 7.9 L Magnesium (1.6 - 2.3 mg/dL) 2.4 H Laboratory Tests 07/20 0358 Hematology WBC (5.0 - 12.0 x10 3/uL) 7.2 RBC (4.70 - 6.10 x10 6/uL) 2.93 L Hgb (14.0 - 18.0 g/dL) 8.2 L Hct (37.0 - 49.0 %) 26.0 L MCV (80 - 94 fL) 89 MCH (27 - 31 pg) 28.0 MCHC (33 - 37 g/dL) 31.5 L RDW (11.5 - 15.5 %) 15.7 H Plt Count (130 - 400 x10 3/uL) 240 MPV (9.4 - 16.4 fL) 11.2 Neut % (Auto) (43 - 65 %) 81.8 H Lymph % (Auto) (20.5 - 45.5 %) 9.0 L Citrus % (Auto) (5.5 - 11.7 %) 5.4 L Eos % (Auto) (0.9 - 2.9 %) 2.2 Baso % (Auto) (0.2 - 1.0 %) 0.8 Neut # (Auto) (2.2 - 4.8 x10 3/uL) 5.89 H Lymph # (Auto) (1.3 - 2.9 x10 3/uL) 0.65 L Citrus # (Auto) (0.3 - 0.8 x10 3/uL) 0.39 Eos # (Auto) (0.0 - 0.2 x10 3/uL) 0.16 Baso # (Auto) (0.0 - 0.1 x10 3/uL) 0.06 Immature Gran % (0.0 - 2.0 %) 0.8 Nucleated RBC % (0 - 1.0 %) 0.0 Diagnosis, Assessment Plan Free Text A P: JENNIFER hypotension AAA lactic acidosis severe metabolic acidosis- resolved Metabolic alkalosis - resolved follwo up am labs hd as needed bp control will monitor for renal recoveray at 2104 RPT #:[id number] END OF REPORT 2020-07-20 15:49:00-00:00 [facility]) Cardiology Progress Note REPORT#:[id number] REPORT STATUS: Signed DATE:07/20/20 TIME: 1549 PATIENT: JORGE GOINS UNIT #: [id number] ROOM/BED: [address] : [birth year] AGE: 34 SEX: M ATTEND: Luis M Olmedo MD ADM AUTHOR: Giancarlo Phan MD * ALL edits or amendments must be made on the el [employer]/computer document * Subjective Free Text Subj Notes Free Text Subj Notes: Patient resting. He has made a remarkable recove ry. Objective General VS/I O: 24 hour I O ending at 0700: 07/20 0700 07/19 1900 Intake Total 730.00 Output Total 600 Balance 130.00 Intake, Free 100 Water Intake, IV 270.00 Intake, Tube 360 Feeding Output, Stool 200 Output, Urine 400 Patient 105.3 kg Weight Weight Bed scale Measurement Method Vital Signs: Date Time Temp Pulse Resp B/P B/P Pulse O2 O2 F low FiO2 Mean Ox Delivery Rate 07/20 1100 36.9 Room air 07/20 0828 93 5 28 Tracheostomy collar 07/20 0733 Tracheostomy collar 07/20 0700 36.7 Room air 07/20 0700 80 26 146/68 98 91 07/20 0652 78 27 145/68 97 91 07/20 0645 81 27 151/70 101 90 07/20 0630 74 27 147/67 97 90 07/20 0615 76 26 145/65 95 93 07/20 0600 74 24 144/68 97 95 07/20 0545 74 21 141/66 95 93 07/20 0530 74 37 95 07/20 0500 75 22 98 07/20 0445 78 25 145/66 95 100 07/20 0430 71 22 147/65 94 99 07/20 0415 69 24 147/66 95 99 07/20 0400 72 23 145/64 92 99 07/20 0345 77 22 142/64 92 98 07/20 0330 71 22 143/65 93 99 07/20 0315 71 22 141/63 92 99 07/20 0300 70 20 143/65 94 99 07/20 0245 71 23 143/65 94 99 07/20 0230 71 21 141/61 91 100 07/20 0215 71 21 136/62 89 100 07/20 0200 69 22 133/59 87 99 07/20 0145 68 22 134/59 86 98 07/20 0130 71 22 130/60 86 98 07/20 0115 67 24 128/60 87 96 07/20 0100 69 22 134/56 85 94 07/20 0045 72 23 133/60 87 95 07/20 0030 70 24 135/58 84 95 07/20 0015 76 20 138/56 86 97 07/20 0000 75 27 140/64 92 97 07/19 2309 72 21 100 07/19 2300 70 21 131/62 89 100 07/19 2245 71 21 131/58 85 100 07/19 2230 71 19 131/58 84 99 07/19 2215 69 20 131/57 85 99 07/19 2200 69 19 130/58 84 100 07/195 71 22 129/58 83 100 07/190 68 19 134/60 86 100 07/195 70 19 134/62 86 99 07/19 2099 68 19 133/60 87 100 07/19 2058 100 Room air 07/19 2044 73 19 131/57 86 100 07/19 2029 67 18 139/63 91 99 07/19 2014 67 19 136/61 89 100 07/19 1999 68 19 138/63 91 100 07/19 1945 68 18 135/61 89 100 07/19 1930 65 19 132/63 86 100 07/19 1915 65 19 130/61 87 100 07/19 1900 69 20 135/58 90 100 07/19 1845 66 19 134/62 88 100 07/19 1830 68 19 135/62 89 100 07/19 1815 68 19 137/62 89 99 07/19 1800 70 20 134/57 86 99 07/19 1745 69 21 136/63 90 99 07/19 1730 68 21 134/61 88 99 07/19 1715 69 20 136/63 91 100 07/19 1700 69 20 134/64 90 100 07/19 1645 71 20 134/63 90 100 07/19 1630 71 21 134/66 90 100 07/19 1615 71 20 135/68 92 98 07/19 1600 84 21 135/68 94 99 PATIENT WEIGHT: Weight (lb): 232 Weight (oz): 2.35 Weight (kg): 105.300 Physical Exam Head/Eyes: atraumatic, normocephalic ENT: moist mucosal membranes, normal nose Neck: non-tender, supple/no meningismus, traches otomy prsent Cardiovascular: CV assessment: regular rate and rhythm, no murm ur Respiratory: no distress, coarse breathsounds, m echanically ventialted Abdomen: soft, non-tender Upper extremity: UE assessment: normal capillary refill, normal temperature Lower extremity: LE assessment: normal capillary refill, normal temperature, no edema Musculoskeletal: normal inspection Neuro/RADIOTELEGRAPHIST: vented via trachesotomy, not followin g commands Diagnosis, Assessment Plan Free Text DxA P Notes Free Text DxA P Notes: 1. Hypertensive urgency/emergency - presented with severely elevated BP requiring 2 IV infusions, subsequently suffered PEA cardiac arrest - BP control improving - cont hydralazine 100mg Q8H, labetalol 400mg Q 8H, clonidine patch has been increased to 0.3 - nifedipine 30mg QID, patients blood pressure much better controlled -We will continue to watch blood pressure very closely. Given current renal failure somewhat inhibits th e addition of Aldactone as well as thiazides as well as CECI/ARB's. -We will discuss with nephro logy about the need of having patient on CECI/ARB or spironolactone for better blood pressure control given that he is currently on dialysis. 2. Cardiac arrest - PEA in etiology, pt became hypothermic and sub sequently bradycardic 3. Type B aortic dissection s/p EVAR - has residual descending aortic dissect ion extending into iliacs. No evidence of rupture on CTA. Reviewed by vascular surgery - appreciate assitance - optimal BP Control as above 4. Acute on chronic systolic heart failure -Improved significantly 5. Shock - resolved 6. JENNIFER on CKD -On dialysis 7. Acute hypoxic respiratory failure - now has tracheostomy- per ICU team 8. Stroke: - CT head and MRI with evidence of prior CVA - TTE with possible PFO -will consider closure o f PFO when patient improves enough after discharge. Will follow. Please call if questions. [facility] Electronically Signed by Giancarlo Phan MD on 06/27 11/13 at 1555 RPT #:[id number] END OF REPORT 2020-07-20 10:32:00-00:[address] [facility] ([facility]) Critical Care Progress Note REPORT#:[id number] REPORT STATUS: Signed DATE:07/20/20 TIME: 1032 PATIENT: JORGE GOINS UNIT #: [id number] ROOM/BED: [address] : [address] AGE: 34 SEX: M ATTEND: Luis M Olmedo MD ADM AUTHOR: Edy Olmedo MD * ALL edits or amendments must be made on the [employer]/computer document * Subjective Chief Complaint: on TC mental status stable BP better controlled MRI planned Review of Systems ROS Unable to obtain due to: severity of patient condition Objective Physical Exam Head/Eyes: atraumatic, normocephalic Neck: full range of motion Cardiovascular: normal heart sounds, normal S1 S 2, normal rate and rhythm Respiratory/Chest: aerating well, clear to auscu ltation Abdomen: soft, non-tender, normal bowel sounds, no distention Extremities: no edema Neuro/RADIOTELEGRAPHIST: disoriented, alert Diagnosis, Assessment Plan Free text A P: 34 year old male with history of aortic dissecti on s/p EVAR came in for hypertensive urgency A/P: Neuro -MRI multiple ischemic cva Neuro status slowly improving More awake. following commands MRI spine ok Pulm -s/p trach On TC CV #s/p Cardiac Arrest - PEA hypotensive. ROSC achieved after 9 minutes - likely from cardiogenic shock EF 30-34% - Aortic dissection ruled out from CTA chest , a bdomen and pelvis #hx of EVAR for aortic dissection and h/o endole ak in the past - per vascular surgery -uncontrolled hypertension on cardene will titrate po meds to d/c cardene # Fever positive blood culture respiratory source'unlikley clabsi abx GI on tube feeidng Renal Acute renal failure on hd gi ppx: pepcid dvt ppx: heparin Diet: tube feeds condition stable prognosis guarded Transfer to IMU once off cardene Electronically Signed by Edy Olmedo MD on at 1033 RPT #:[id number] END OF REPORT 2020-07-20 09:39:00-00:00 [facility] Neurology Progress Note REPORT#:[id number] REPORT STATUS: Signed DATE:07/20/20 TIME: 938 PATIENT: JORGE GOINS UNIT #: [id number] ROOM/BED: [address] : [birth year] AGE: 34 SEX: M ATTEND: Luis M Olmedo MD ADM AUTHOR: Sinai Rogers DPM R2 * ALL edits or amendments must be made on the rimidi/computer document * Subjective Chief Complaint: Patient awake and talking. He continues to have significant weakness in both legs Review of Systems Constitutional: Denies: chills, fever. Cardiovascular: Denies: chest pain. Objective General VS: Last Documented: Result Date Time O2 Delivery Tracheostomy collar 01/25 0733 Temp 36.7 07/20 699 Pulse Ox 91 07/20 699 B/P 146/68 07/20 699 B/P Mean 98 07/20 699 Pulse 80 07/20 07 Resp 26 07/20 07 FiO2 28 07/19 0843 O2 Flow Rate 5 07/19 0843 PATIENT WEIGHT: Weight (lb): 232 Weight (oz): 2.35 Weight (kg): 105.300 Physical Exam General appearance: alert, awake Head/Eyes: atraumatic, normocephalic ENT: moist mucosal membranes Neck: non-tender, no masses or swelling Cardiovascular: irregular rate and rhythm, murmu r Respiratory: intubated/mech vent Abdomen: non-tender, normal bowel sounds, soft Results Findings/Data: Laboratory Tests 07/20 07/19 0358 1125 Chemistry Sodium (137 - 145 mmol/L) 142 Potassium (3.4 - 5.0 mmol/L) 3.5 Chloride (98 - 107 mmol/L) 110 H Carbon Dioxide (22 - 30 mmol/L) 21 L BUN (9 - 20 mg/dL) 77 H Creatinine (0.7 - 1.3 mg/dL) 5.6 H Glomerular Filtr Rate (>60) 15 L Glucose (74 - 106 mg/dL) 90 POC Glucose (74 - 106 MG/DL) 91 Calcium (8.4 - 10.2 mg/dL) 7.9 L Magnesium (1.6 - 2.3 mg/dL) 2.4 H Laboratory Tests 07/208 Hematology WBC (5.0 - 12.0 x10 3/uL) 7.2 RBC (4.70 - 6.10 x10 6/uL) 2.93 L Hgb (14.0 - 18.0 g/dL) 8.2 L Hct (37.0 - 49.0 %) 26.0 L MCV (80 - 94 fL) 89 MCH (27 - 31 pg) 28.0 MCHC (33 - 37 g/dL) 31.5 L RDW (11.5 - 15.5 %) 15.7 H Plt Count (130 - 400 x10 3/uL) 240 MPV (9.4 - 16.4 fL) 11.2 Neut % (Auto) (43 - 65 %) 81.8 H Lymph % (Auto) (20.5 - 45.5 %) 9.0 L Citrus % (Auto) (5.5 - 11.7 %) 5.4 L Eos % (Auto) (0.9 - 2.9 %) 2.2 Baso % (Auto) (0.2 - 1.0 %) 0.8 Neut # (Auto) (2.2 - 4.8 x10 3/uL) 5.89 H Lymph # (Auto) (1.3 - 2.9 x10 3/uL) 0.65 L Citrus # (Auto) (0.3 - 0.8 x10 3/uL) 0.39 Eos # (Auto) (0.0 - 0.2 x10 3/uL) 0.16 Baso # (Auto) (0.0 - 0.1 x10 3/uL) 0.06 Immature Gran % (0.0 - 2.0 %) 0.8 Nucleated RBC % (0 - 1.0 %) 0.0 Radiology Data: Recent Impressions: MAGNETIC RESONANCE IMAGING - MRI BRAIN W/O CONTR AST 07/19 1220 Report Impression - Status: SIGNED Entered: 07/19/2020 1325 IMPRESSION: No evidence of acute ischemia. Previously seen a reas restricted diffusion on the longer present with a correspon ding abnormal T2/FLAIR signal signal showing significant improvement. Patchy periventricular white matter disease appe ars improved but not resolved since 06/26/20 and may have related to un derlying metabolic or toxic disorder and/or vasculitis. Impression By: [email or web address] - Shauna Robins CAT SCAN - CT L-SPINE W/O CONTRAST 07/19 1435 Report Impression - Status: SIGNED Entered: 07/19/2020 1854 IMPRESSION: No acute bony abnormality of the thoracic or lum bar spine. Of note, there is a large stent graft in place within the thoracic and abdominal aorta. Given patient's history, an MRI examination may be helpful to evaluate for the possibility of a cor d infarct. Minimal degenerative changes. Small amount of free fluid within the pelvis, no nspecific. Impression By: [email or web address] - Paras Faustin MD CAT SCAN - CT C-SPINE W/O CONT 07/19 1435 Report Impression - Status: SIGNED Entered: 07/19/2020 1853 IMPRESSION: Straightening of the normal curvature, which may be secondary to positioning. No acute bony abnormality of the cervical spine. If there is continued clinical concern for neurologic compro mise, consider further evaluation with an MRI examination. Impression By: Mina Faustin MD CAT SCAN - CT T-SPINE W/O CONTRAST 07/19 4206 Report Impression - Status: SIGNED Entered: 07/19/2020 5838 IMPRESSION: No acute bony abnormality of the thoracic or lum bar spine. Of note, there is a large stent graft in place within the thoracic and abdominal aorta. Given patient's history, an MRI examination may be helpful to evaluate for the possibility of a cor d infarct. Minimal degenerative changes. Small amount of free fluid within the pelvis, no nspecific. Impression By: Mina Faustin MD Diagnosis, Assessment Plan Free Text A P: Assessment 1. Acute encephalopathy - multifactorial - metab olic/hypertensive emergency/ acute stroke 2. Acute ischemic strokes, suspect embolic sourc e, + PFO, b/l lower extremity dopplers negative 3. s/p PEA arrest 06/11/20 4. hypertensive emergency - 5. acute respiratory failure, s/p trach and peg 6. complicated type b aortic dissection, in need of extension TEVAR when stable per vascular surgery 7. Bilateral LE weakness/ parapglegia- ?Severe c ritical illness myopathy Plan: -MRI brain (07/19) - no evidence of acute ischemi a -Spine MRI - extensive artif act due to aortic stent grafts, lumbar and thoracic scan was d/c -consider PFO closure in future when medically s tabilized -HD per nephrology Will d/w attending Dr. Chino Electronically Signed by Sinai Rogers DPM R2 on 0 07/20/20 at 1020 RPT #:[id number] END OF REPORT 2020-07-20 09:39:00-00:00 [facility] Neurology Progress Note REPORT#:[id number] REPORT STATUS: Signed DATE:07/20/20 TIME: 0939 PATIENT: JORGE GOINS UNIT #: [id number] ROOM/BED: [address] : [birth year] AGE: 34 SEX: M ATTEND: Yoseph Olmedo MD ADM AUTHOR: Sinai Rogers DPM R2 * ALL edits or amendments must be made on the rimidi/computer document * SueSinai 07/20/20 0939: Subjective Chief Complaint: Patient awake and talking. He continues to have significant weakness in both legs Review of Systems Constitutional: Denies: chills, fever. Cardiovascular: Denies: chest pain. Objective General VS: Last Documented: Result Date Time O2 Delivery Tracheostomy collar 07/20 732 Temp 36.7 07/20 07 Pulse Ox 91 07/20 07 B/P 146/68 07/20 07 B/P Mean 98 07/20 07 Pulse 80 07/20 0700 Resp 26 07/20 07 FiO2 28 07/19 0843 O2 Flow Rate 5 07/19 0843 PATIENT WEIGHT: Weight (lb): 232 Weight (oz): 2.35 Weight (kg): 105.300 Physical Exam General appearance: alert, awake Head/Eyes: atraumatic, normocephalic ENT: moist mucosal membranes Neck: non-tender, no masses or swelling Cardiovascular: irregular rate and rhythm, murmu r Respiratory: intubated/mech vent Abdomen: non-tender, normal bowel sounds, soft Results Findings/Data: Laboratory Tests 07/20 07/19 0358 1125 Chemistry Sodium (137 - 145 mmol/L) 142 Potassium (3.4 - 5.0 mmol/L) 3.5 Chloride (98 - 107 mmol/L) 110 H Carbon Dioxide (22 - 30 mmol/L) 21 L BUN (9 - 20 mg/dL) 77 H Creatinine (0.7 - 1.3 mg/dL) 5.6 H Glomerular Filtr Rate (>60) 15 L Glucose (74 - 106 mg/dL) 90 POC Glucose (74 - 106 MG/DL) 91 Calcium (8.4 - 10.2 mg/dL) 7.9 L Magnesium (1.6 - 2.3 mg/dL) 2.4 H Laboratory Tests 07/20 357 Hematology WBC (5.0 - 12.0 x10 3/uL) 7.2 RBC (4.70 - 6.10 x10 6/uL) 2.93 L Hgb (14.0 - 18.0 g/dL) 8.2 L Hct (37.0 - 49.0 %) 26.0 L MCV (80 - 94 fL) 89 MCH (27 - 31 pg) 28.0 MCHC (33 - 37 g/dL) 31.5 L RDW (11.5 - 15.5 %) 15.7 H Plt Count (130 - 400 x10 3/uL) 240 MPV (9.4 - 16.4 fL) 11.2 Neut % (Auto) (43 - 65 %) 81.8 H Lymph % (Auto) (20.5 - 45.5 %) 9.0 L Citrus % (Auto) (5.5 - 11.7 %) 5.4 L Eos % (Auto) (0.9 - 2.9 %) 2.2 Baso % (Auto) (0.2 - 1.0 %) 0.8 Neut # (Auto) (2.2 - 4.8 x10 3/uL) 5.89 H Lymph # (Auto) (1.3 - 2.9 x10 3/uL) 0.65 L Citrus # (Auto) (0.3 - 0.8 x10 3/uL) 0.39 Eos # (Auto) (0.0 - 0.2 x10 3/uL) 0.16 Baso # (Auto) (0.0 - 0.1 x10 3/uL) 0.06 Immature Gran % (0.0 - 2.0 %) 0.8 Nucleated RBC % (0 - 1.0 %) 0.0 Radiology Data: Recent Impressions: MAGNETIC RESONANCE IMAGING - MRI BRAIN W/O CONTR AST 07/19 1220 Report Impression - Status: SIGNED Entered: 07/19/2020 1325 IMPRESSION: No evidence of acute ischemia. Previously seen a reas restricted diffusion on the longer present with a correspon ding abnormal T2/FLAIR signal signal showing significant improvement. Patchy periventricular white matter disease appe ars improved but not resolved since 06/26/20 and may have related to un derlying metabolic or toxic disorder and/or vasculitis. Impression By: [email or web address] - Shauna Robins CAT SCAN - CT L-SPINE W/O CONTRAST 07/19 1435 Report Impression - Status: SIGNED Entered: 07/19/2020 1854 IMPRESSION: No acute bony abnormality of the thoracic or lum bar spine. Of note, there is a large stent graft in place within the thoracic and abdominal aorta. Given patient's history, an MRI examination may be helpful to evaluate for the possibility of a cor d infarct. Minimal degenerative changes. Small amount of free fluid within the pelvis, no nspecific. Impression By: Mina Faustin MD CAT SCAN - CT C-SPINE W/O CONT 07/19 1435 Report Impression - Status: SIGNED Entered: 07/19/20203 IMPRESSION: Straightening of the normal curvature, which may be secondary to positioning. No acute bony abnormality of the cervical spine. If there is continued clinical concern for neurologic compro mise, consider further evaluation with an MRI examination. Impression By: Mina Faustin MD CAT SCAN - CT T-SPINE W/O CONTRAST 07/19 1435 Report Impression - Status: SIGNED Entered: 07/19/20204 IMPRESSION: No acute bony abnormality of the thoracic or lum bar spine. Of note, there is a large stent graft in place within the thoracic and abdominal aorta. Given patient's history, an MRI examination may be helpful to evaluate for the possibility of a cor d infarct. Minimal degenerative changes. Small amount of free fluid within the pelvis, no nspecific. Impression By: Mina Faustin MD Diagnosis, Assessment Plan Free Text A P: Assessment 1. Acute encephalopathy - multifactorial - metab olic/hypertensive emergency/ acute stroke 2. Acute ischemic strokes, suspect embolic sourc e, + PFO, b/l lower extremity dopplers negative 3. s/p PEA arrest 06/11/20 4. hypertensive emergency - 5. acute respiratory failure, s/p trach and peg 6. complicated type b aortic dissection, in need of extension TEVAR when stable per vascular surgery 7. Bilateral LE weakness/ parapglegia- ?Severe c ritical illness myopathy Plan: -MRI brain (07/19) - no evidence of acute ischemi a -Spine MRI - extensive artif act due to aortic stent grafts, lumbar and thoracic scan was d/c -consider PFO closure in future when medically s tabilized -HD per nephrology Will d/w attending William Agarwal 07/20/20 1220: Diagnosis, Assessment Plan Free Text A P: whole spine ct unrevealing- stent graft aftifact compromises spine mri...; d/w speech as well; agree with above note / plan by resident Electronically Signed by Sinai Rogers DPM R2 on 0 07/20/20 at 1020 at 1221 RPT #:[id number] END OF REPORT 2020-07-19 23:07:00-00:00 [facility] Nephrology Progress Note REPORT#:[id number] REPORT STATUS: Signed DATE:07/19/20 TIME: 2306 PATIENT: JORGE GOINS UNIT #: [id number] ROOM/BED: [address] : [birth year] AGE: 34 SEX: M ATTEND: Luis M Olmeod MD ADM AUTHOR: Ceferino De La Garza MD * ALL edits or amendments must be made on the rimidi/computer document * Subjective Comments: events noted Objective Physical Exam Head/eyes: normal conjunctiva/sclera Neck: trach in place Respiratory: symmetric expansion Genitourinary: zuñiga, urine (appears pink) Extremities: pedal edema improved Musculoskeletal: normal inspection 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, oriented X 3 Hemodialysis access: Type: vascath Psychiatry: unable to evaluate Diagnosis, Assessment Plan Free Text A P: JENNIFER hypotension AAA lactic acidosis severe metabolic acidosis- resolved Metabolic alkalosis - resolved follwo up am labs hd as needed bp control will monitor for renal recoveray at 2102 RPT #:[id number] END OF REPORT 2020-07-19 18:17:00-00:00 [facility] Cardiology Progress Note REPORT#:[id number] REPORT STATUS: Signed DATE:07/19/20 TIME: 1816 PATIENT: JORGE GOINS UNIT #: [id number] ROOM/BED: [place] [id number] : 86 AGE: 34 SEX: M ATTEND: Luis M Olmedo MD ADM AUTHOR: Giancarlo Phan MD * ALL edits or amendments must be made on the el ectronic/computer document * Subjective Free Text Subj Notes Free Text Subj Notes: Patient must improved he is communicating very w ell. He denies any chest pain shortness of breath or any other acute complaint s at this time. Objective Physical Exam Head/Eyes: atraumatic, normocephalic ENT: moist mucosal membranes, normal nose Neck: non-tender, supple/no meningismus, traches otomy prsent Cardiovascular: CV assessment: regular rate and rhythm, no murm ur Respiratory: no distress, coarse breathsounds, m echanically ventialted Abdomen: soft, non-tender Upper extremity: UE assessment: normal capillary refill, normal temperature Lower extremity: LE assessment: normal capillary refill, normal temperature, no edema Musculoskeletal: normal inspection Neuro/RADIOTELEGRAPHIST: vented via trachesotomy, not followin g commands Diagnosis, Assessment Plan Free Text DxA P Notes Free Text DxA P Notes: 1. Hypertensive urgency/emergency - presented with severely elevated BP requiring 2 IV infusions, subsequently suffered PEA cardiac arrest - BP control improving - cont hydralazine 100mg Q8H, labetalol 400mg Q 8H, clonidine patch has been increased to 0.3 - nifedipine 30mg QID, patients blood pressure much better controlled -We will continue to watch blood pressure very closely. Given current renal failure somewhat inhibits th e addition of Aldactone as well as thiazides as well as CECI/ARB's. 2. Cardiac arrest - PEA in etiology, pt became hypothermic and sub sequently bradycardic 3. Type B aortic dissection s/p EVAR - has residual descending aortic dissect ion extending into iliacs. No evidence of rupture on CTA. Reviewed by vascular surgery - appreciate assitance - optimal BP Control as above 4. Acute on chronic systolic heart failure -Improved significantly 5. Shock - resolved 6. JENNIFER on CKD -On dialysis 7. Acute hypoxic respiratory failure - now has tracheostomy- per ICU team 8. Stroke: - CT head and MRI with evidence of prior CVA - TTE with possible PFO -will consider closure o f PFO when patient improves enough after discharge. Will follow. Please call if questions. [facility] Cardiology Electronically Signed by Giancarlo Phan MD on 06/27 10/14 at 1833 RPT #:[id number] END OF REPORT 2020-07-19 14:29:00-00:[address] [facility] ([facility]) Vascular Surgery Progress Note REPORT#:[id number] REPORT STATUS: Signed DATE:07/19/20 TIME: 1429 PATIENT: JORGE GOINS UNIT #: [id number] [address] [birth year] AGE: 34 SEX: M ATTEND: Luis M Olmedo MD ADM AUTHOR: Kleber Newby MD * ALL edits or amendments must be made on the rimidi/computer document * Subjective Chief Complaint: "I want some water" HPI Patient doing well overnight without acute event s. The patient's creatinine remains elevated the patient did not undergo flores lysis yesterday or today. Patient was evaluate by pool godoy and the Passy-Chester valve is in place on his trach allowing him to speak. He appears comfor table and is communicative. He remains unable to move the bilateral lower extremities. Patient was taken to MRI however there was extensive artifact related to his aortic stent grafts not allowing the patient to undergo MRI of t he lumbar or thoracic spine. He denies fevers chills nausea or vomiting. Objective General VS/I O Last Documented: Result Date Time Pulse Ox 98 07/19 1400 B/P 141/68 07/19 1400 B/P Mean 95 07/19 1400 Pulse 70 07/19 1400 Resp 19 07/19 1400 O2 Delivery Tracheostomy collar 07/19 1200 Temp 98.8 07/19 1100 FiO2 28 07/19 0843 O2 Flow Rate 5 07/19 0843 24 hour I O ending at 0700: 07/19 0700 07/18 1900 Intake Total 759.00 930.00 Output Total 275 400 Balance 484.00 530.00 Intake, Free 320 100 Water Intake, IV 139.00 530.00 Intake, Tube 300 300 Feeding Output, Stool 100 200 Output, Urine 175 200 Patient 90 kg Weight Weight Bed scale Measurement Method PATIENT WEIGHT: Weight (lb): 232 Weight (oz): 2.35 Weight (kg): 105.300 General appearance: alert, awake HEENT: anicteric Neck: trach Cardiovascular: regular rate Respiratory: symmetric expansion Abdomen: soft Genitourinary: zuñiga Extremities: palpable radial and dorsalis pedis pulses bilaterally Pulse assess: Other pulse assess: Dorsalis pedis pulses palpable bilaterally 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, moving bilateral hands to comm and Skin: no flank or back ecchymosis Psychiatry: normal affect, normal mood Current Medications Medications: Active Meds + DC'd Last 24 Hrs Losartan Potassium 50 MG BID PO Potassium Bicarbonate/Citric Acid 40 MEQ ONCE ON E FEED-TUBE (DC) Magnesium Sulfate 50 ML ONCE ONE IV (DC) Nifedipine 30 MG Q6HR FEED-TUBE Labetalol HCl 0 .STK-MED ONE .ROUTE (DC) Losartan Potassium 50 MG DAILY PO (DC) Prednisone 30 MG DAILY PO Heparin Sodium (Porcine) 2,000 UNIT DIALYSIS-DOS E BEFORE IV (CKD) Heparin Sodium (Porcine) 5,000 UNIT DIALYSIS-DOS E AFTER MISC Sodium Chloride 1,000 ML ASDIR PRN IV Clonidine HCl 0.3 MG Q7D TRANSDERM (CKD) Nicardipine HCl 200 ML TITRATE IV Labetalol HCl 10 MG Q6H PRN PRN IV Acetaminophen 650 MG Q4H PRN PRN FEED-TUBE Isosorbide Mononitrate 30 MG BID FEED-TUBE Potassium Chloride 100 ML ASDIR PRN IV Potassium Bicarbonate/Citric Acid 20 MEQ ASDIR P O (CKD) Potassium Chloride 100 ML ASDIR PRN IV Hydralazine HCl 100 MG Q8HR PO Labetalol HCl 400 MG Q8HR PO Magnesium 100 ML ASDIR PRN IV Magnesium Sulfate 50 ML ASDIR PRN IV Magnesium Sulfate 100 ML ASDIR PRN IV Aspirin 81 MG DAILY FEED-TUBE Atorvastatin Calcium 40 MG DAILY FEED-TUBE Albuterol/Ipratropium 3 ML RTQ6H INH Dextrose/Water 25 ML ASDIR PRN IV Glucagon 1 MG ASDIR PRN IM Insulin Human Lispro LOW DOSE SCALE ASDIR SUBQ Sterile Water 1 ML ASDIR PRN IM Famotidine 20 MG DAILY PO Heparin Sodium (Porcine) 5,000 UNIT Q12HR SUBQ Diagnosis, Assessment Plan Free Text A P: 34 year old male with complicated type B dissection in need of extension TEVAR when stable Keep BP less than 120mmhg with heart rate goal o f 60 bpm Extubate when feasible: Patient has now been tra ched, wean from vent as tolerated Will need further TEVAR when stable Vascular surgery will continue to follow closely . Patient remains on broad-spectrum antibi otics with ID following for antibiotic recommendations. Most recent blood cultures x2 no growth after 5 days which are now finalized. Given the patient's aortic endogr aft the patient would benefit from prolonged course of antibiotics given high risk of graft infection with previously positive blood cultures. Appreciate nephrology recommendations. Patient was taken for MRI however given high deg ree of artifact the scan was aborted. I spoke personally with the stent graft company [employer] noting that the patient is safe to undergo MRI with either 1.5 or 3 Sandi magnet as the stents are MRI conditional. However after discus sing at length with the offshore wind turbine technician it appears that due to the ar tifact generated by these stent grafts the spine was not visible and thus the study was canceled. Patient improving but remains critically ill. Di scussed with ICU nurse. Electronically Signed by Kleber Newby MD on 06/27 10/14 at 1434 RPT #:[id number] END OF REPORT 2020-07-19 11:59:00-00:00 [facility]) Critical Care Progress Note REPORT#:[id number] REPORT STATUS: Signed DATE:07/19/20 TIME: 1159 PATIENT: JORGE GOINS UNIT #: [id number] ROOM/BED: [address] : [birth year] AGE: 34 SEX: M ATTEND: Luis M Olmedo MD ADM AUTHOR: Papi England MD * ALL edits or amendments must be made on the el [employer]/computer document * Subjective Chief Complaint: on TC mental status stable BP better controlled MRI planned Objective General VS/I O Last Documented: Result Date Time Pulse Ox 100 07/19 1130 B/P 142/70 07/19 1130 B/P Mean 97 07/19 1130 Pulse 65 07/19 1130 Resp 24 07/19 1130 FiO2 28 07/19 0843 O2 Delivery Tracheostomy collar 07/19 0843 O2 Flow Rate 5 07/19 0843 Temp 36.7 07/19 0700 24 hour I O ending at 0700: 07/19 0700 07/18 1900 Intake Total 759.00 930.00 Output Total 275 400 Balance 484.00 530.00 Intake, Free 320 100 Water Intake, IV 139.00 530.00 Intake, Tube 300 300 Feeding Output, Stool 100 200 Output, Urine 175 200 Patient 90 kg Weight Weight Bed scale Measurement Method PATIENT WEIGHT: Weight (lb): 232 Weight (oz): 2.35 Weight (kg): 105.300 Medications: Active Meds + DC'd Last 24 Hrs Potassium Bicarbonate/Citric Acid 40 MEQ ONCE ON E FEED-TUBE (DC) Magnesium Sulfate 50 ML ONCE ONE IV (DC) Nifedipine 30 MG Q6HR FEED-TUBE Labetalol HCl 0 .STK-MED ONE .ROUTE (DC) Losartan Potassium 50 MG DAILY PO Prednisone 30 MG DAILY PO Heparin Sodium (Porcine) 2,000 UNIT DIALYSIS-DOS E BEFORE IV (CKD) Nifedipine 20 MG Q6HR FEED-TUBE (DC) Heparin Sodium (Porcine) 5,000 UNIT DIALYSIS-DOS E AFTER MISC Sodium Chloride 1,000 ML ASDIR PRN IV Clonidine HCl 0.3 MG Q7D TRANSDERM (CKD) Nicardipine HCl 200 ML TITRATE IV Labetalol HCl 10 MG Q6H PRN PRN IV Acetaminophen 650 MG Q4H PRN PRN FEED-TUBE Isosorbide Mononitrate 30 MG BID FEED-TUBE Potassium Chloride 100 ML ASDIR PRN IV Potassium Bicarbonate/Citric Acid 20 MEQ ASDIR P O (CKD) Potassium Chloride 100 ML ASDIR PRN IV Hydralazine HCl 100 MG Q8HR PO Labetalol HCl 400 MG Q8HR PO Magnesium 100 ML ASDIR PRN IV Magnesium Sulfate 50 ML ASDIR PRN IV Magnesium Sulfate 100 ML ASDIR PRN IV Aspirin 81 MG DAILY FEED-TUBE Atorvastatin Calcium 40 MG DAILY FEED-TUBE Albuterol/Ipratropium 3 ML RTQ6H INH Dextrose/Water 25 ML ASDIR PRN IV Glucagon 1 MG ASDIR PRN IM Insulin Human Lispro LOW DOSE SCALE ASDIR SUBQ Sterile Water 1 ML ASDIR PRN IM Famotidine 20 MG DAILY PO Heparin Sodium (Porcine) 5,000 UNIT Q12HR SUBQ Physical Exam General appearance: alert, awake Head/Eyes: atraumatic, normocephalic Neck: full range of motion Cardiovascular: normal heart sounds, normal S1 S 2, normal rate and rhythm Respiratory/Chest: aerating well, clear to auscu ltation Abdomen: soft, non-tender, normal bowel sounds, no distention Extremities: no edema Neuro/RADIOTELEGRAPHIST: disoriented, alert Results Findings/Data: Laboratory Tests 07/19/20 0230: [Embedded Image Not Available] Laboratory Tests 07/19 07/19 07/19 07/18 07/18 1125 0232 0230 4 2001 Chemistry Sodium (137 - 145 mmol/L) 140 Potassium (3.4 - 5.0 mmol/L) 3.2 L Chloride (98 - 107 mmol/L) 108 H Carbon Dioxide (22 - 30 mmol/L) 21 L BUN (9 - 20 mg/dL) 65 H Creatinine (0.7 - 1.3 mg/dL) 4.9 H Glomerular Filtr Rate (>60) 18 L Glucose (74 - 106 mg/dL) 103 POC Glucose (74 - 106 MG/DL) 91 92 118 H 111 H Calcium (8.4 - 10.2 mg/dL) 8.0 L Magnesium (1.6 - 2.3 mg/dL) 1.9 Laboratory Tests 07/19 0230 Hematology WBC (5.0 - 12.0 x10 3/uL) 10.0 RBC (4.70 - 6.10 x10 6/uL) 3.18 L Hgb (14.0 - 18.0 g/dL) 8.8 L Hct (37.0 - 49.0 %) 28.1 L MCV (80 - 94 fL) 88 MCH (27 - 31 pg) 27.7 MCHC (33 - 37 g/dL) 31.3 L RDW (11.5 - 15.5 %) 15.3 Plt Count (130 - 400 x10 3/uL) 261 MPV (9.4 - 16.4 fL) 10.9 Neut % (Auto) (43 - 65 %) 87.7 H Lymph % (Auto) (20.5 - 45.5 %) 5.9 L Citrus % (Auto) (5.5 - 11.7 %) 4.0 L Eos % (Auto) (0.9 - 2.9 %) 1.1 Baso % (Auto) (0.2 - 1.0 %) 0.6 Neut # (Auto) (2.2 - 4.8 x10 3/uL) 8.78 H Lymph # (Auto) (1.3 - 2.9 x10 3/uL) 0.59 L Citrus # (Auto) (0.3 - 0.8 x10 3/uL) 0.40 Eos # (Auto) (0.0 - 0.2 x10 3/uL) 0.11 Baso # (Auto) (0.0 - 0.1 x10 3/uL) 0.06 Immature Gran % (0.0 - 2.0 %) 0.7 Nucleated RBC % (0 - 1.0 %) 0.0 Radiology data Recent Impressions: MAGNETIC RESONANCE IMAGING - MRI BRAIN W/O CONTR AST 07/19 1220 Report Impression - Status: SIGNED Entered: 07/19/2020 1325 IMPRESSION: No evidence of acute ischemia. Previously seen a reas restricted diffusion on the longer present with a correspon ding abnormal T2/FLAIR signal signal showing significant improvement. Patchy periventricular white matter disease appe ars improved but not resolved since 06/26/20 and may have related to un derlying metabolic or toxic disorder and/or vasculitis. Impression By: [email or web address] - Shauna Robins CAT SCAN - CT L-SPINE W/O CONTRAST 07/19 1435 Report Impression - Status: SIGNED Entered: 07/19/2020 1854 IMPRESSION: No acute bony abnormality of the thoracic or lum bar spine. Of note, there is a large stent graft in place within the thoracic and abdominal aorta. Given patient's history, an MRI examination may be helpful to evaluate for the possibility of a cor d infarct. Minimal degenerative changes. Small amount of free fluid within the pelvis, no nspecific. Impression By: [email or web address] Keyon Faustin MD CAT SCAN - CT C-SPINE W/O CONT 07/19 1435 Report Impression - Status: SIGNED Entered: 07/19/2020 1853 IMPRESSION: Straightening of the normal curvature, which may be secondary to positioning. No acute bony abnormality of the cervical spine. If there is continued clinical concern for neurologic compro mise, consider further evaluation with an MRI examination. Impression By: [email or web address] Keyon Faustin MD CAT SCAN - CT T-SPINE W/O CONTRAST 07/19 1435 Report Impression - Status: SIGNED Entered: 07/19/2020 1854 IMPRESSION: No acute bony abnormality of the thoracic or lum bar spine. Of note, there is a large stent graft in place within the thoracic and abdominal aorta. Given patient's history, an MRI examination may be helpful to evaluate for the possibility of a cor d infarct. Minimal degenerative changes. Small amount of free fluid within the pelvis, no nspecific. Impression By: [email or web address] - Paras Faustin MD Diagnosis, Assessment Plan Free text A P: 34 year old male with history of aortic dissecti on s/p EVAR came in for hypertensive urgency A/P: Neuro -MRI multiple ischemic cva Neuro status slowly improving More awake. following commands MRI spine ok Pulm -s/p trach On TC CV #s/p Cardiac Arrest - PEA hypotensive. ROSC achieved after 9 minutes - likely from cardiogenic shock EF 30-34% - Aortic dissection ruled out from CTA chest , a bdomen and pelvis #hx of EVAR for aortic dissection and h/o endole ak in the past - per vascular surgery -uncontrolled hypertension on cardene will titrate po meds to d/c cardene # Fever positive blood culture respiratory source'unlikley clabsi abx GI on tube feeidng Renal Acute renal failure on hd gi ppx: pepcid dvt ppx: heparin Diet: tube feeds condition stable prognosis guarded Transfer to IMU once off cardene at 1904 RPT #:[id number] END OF REPORT 2020-07-19 07:49:00-00:00 [facility] Neurology Progress Note REPORT#:[id number] REPORT STATUS: Signed DATE:07/19/20 TIME: 0749 PATIENT: JORGE GOINS UNIT #: [id number] ROOM/BED: [address] : [birth year] AGE: 34 SEX: M ATTEND: Luis M Olmedo MD ADM AUTHOR: William Chino DO * ALL edits or amendments must be made on the el ectronic/computer document * Subjective Chief Complaint: he continues to have significant weakness in bot h legs Objective General VS: Last Documented: Result Date Time Pulse Ox 100 07/19 646 Pulse 71 07/19 0647 Resp 6 07/19 0647 B/P 133/63 07/19 0645 B/P Mean 89 07/19 644 Temp 97.6 07/19 0400 FiO2 28 07/18 2040 O2 Delivery Tracheostomy collar 07/18 2040 O2 Flow Rate 5 07/18 2040 PATIENT WEIGHT: Weight (lb): 198 Weight (oz): 6.66 Weight (kg): 90.000 Medications Current Home Medications ALBUTEROL (PROAIR HFA 90 MCG/ACT 8.5 GM) 2 PUFF INH RTQ6H PRN PRN SOB ASPIRIN EC (ECOTRIN) 81 MG PO DAILY CARVEDILOL (COREG) 25 MG PO BID MEALS ACETAMINOPHEN/CODEINE (TYLENOL WITH CODE INE #4 300/60 MG) 1 TAB PO Q6H PRN PRN PAIN ATORVASTATIN (LIPITOR) 20 MG PO BEDTIME LOSARTAN (COZAAR) 100 MG PO DAILY NIFEdipine CC (ADALAT CC) 90 MG PO Q12HR HYDROCHLOROTHIAZIDE (HYDRODIURIL) 25 MG PO DAILY Active Meds + DC'd Last 24 Hrs Potassium Bicarbonate/Citric Acid 40 MEQ ONCE ON E FEED-TUBE (DC) Magnesium Sulfate 50 ML ONCE ONE IV (DC) Nifedipine 30 MG Q6HR FEED-TUBE Labetalol HCl 0 .STK-MED ONE .ROUTE (DC) Losartan Potassium 50 MG DAILY PO Prednisone 30 MG DAILY PO Heparin Sodium (Porcine) 2,000 UNIT DIALYSIS-DOS E BEFORE IV (CKD) Nifedipine 20 MG Q6HR FEED-TUBE (DC) Heparin Sodium (Porcine) 5,000 UNIT DIALYSIS-DOS E AFTER MISC Sodium Chloride 1,000 ML ASDIR PRN IV Clonidine HCl 0.3 MG Q7D TRANSDERM (CKD) Nicardipine HCl 200 ML TITRATE IV Labetalol HCl 10 MG Q6H PRN PRN IV Acetaminophen 650 MG Q4H PRN PRN FEED-TUBE Isosorbide Mononitrate 30 MG BID FEED-TUBE Potassium Chloride 100 ML ASDIR PRN IV Potassium Bicarbonate/Citric Acid 20 MEQ ASDIR P O (CKD) Potassium Chloride 100 ML ASDIR PRN IV Hydralazine HCl 100 MG Q8HR PO Labetalol HCl 400 MG Q8HR PO Magnesium 100 ML ASDIR PRN IV Magnesium Sulfate 50 ML ASDIR PRN IV Magnesium Sulfate 100 ML ASDIR PRN IV Aspirin 81 MG DAILY FEED-TUBE Atorvastatin Calcium 40 MG DAILY FEED-TUBE Albuterol/Ipratropium 3 ML RTQ6H INH Dextrose/Water 25 ML ASDIR PRN IV Glucagon 1 MG ASDIR PRN IM Insulin Human Lispro LOW DOSE SCALE ASDIR SUBQ Sterile Water 1 ML ASDIR PRN IM Famotidine 20 MG DAILY PO Heparin Sodium (Porcine) 5,000 UNIT Q12HR SUBQ Physical Exam General appearance: respiratory support, alert, awake, no acute distress, follows commands; cannot move both legs Diagnosis, Assessment Plan Problem List/A P: 1. Hypertensive urgency 2. Metabolic encephalopathy 3. Critical illness myopathy Free Text A P: Assessment 1. Acute encephalopathy - multifactorial - metab olic/hypertensive emergency/ acute stroke 2. Acute ischemic strokes, suspect embolic sourc e, + PFO, b/l lower extremity dopplers negative 3. s/p PEA arrest 06/11/20 4. hypertensive emergency - 5. acute respiratory failure, s/p trach and peg 6. complicated type b aortic dissection, in need of extension TEVAR when stable per vascular surgery 7. Bilateral LE weakness/ parapglegia- ?Severe c ritical illness myopathy ... P -d/w staff- repeat brain and whole spine mri to reevaluate for paraplegia --consider PFO closure in future when medically stabilized -will follow at 0751 RPT #:[id number] END OF REPORT 2020-07-18 22:10:00-00:00 [facility] Cardiology Progress Note REPORT#:[id number] REPORT STATUS: Signed DATE:07/18/20 TIME: 2209 PATIENT: JORGE GOINS UNIT #: [id number] ROOM/BED: [address] : [birth year] AGE: 34 SEX: M ATTEND: Luis M Olmedo MD ADM AUTHOR: Giancarlo Phan MD * ALL edits or amendments must be made on the el ectronic/computer document * Subjective Free Text Subj Notes Free Text Subj Notes: Patient much improved, talking with no acute com plaints Objective Physical Exam Head/Eyes: atraumatic, normocephalic ENT: moist mucosal membranes, normal nose Neck: non-tender, supple/no meningismus, traches otomy prsent Cardiovascular: CV assessment: regular rate and rhythm, no murm ur Respiratory: no distress, coarse breathsounds, m echanically ventialted Abdomen: soft, non-tender Upper extremity: UE assessment: normal capillary refill, normal temperature Lower extremity: LE assessment: normal capillary refill, normal temperature, no edema Musculoskeletal: normal inspection Neuro/RADIOTELEGRAPHIST: vented via trachesotomy, not followin g commands Diagnosis, Assessment Plan Free Text DxA P Notes Free Text DxA P Notes: 1. Hypertensive urgency/emergency - presented with severely elevated BP requiring 2 IV infusions, subsequently suffered PEA cardiac arrest - BP control improving - cont hydralazine 100mg Q8H, labetalol 400mg Q 8H, clonidine patch has been increased to 0.3 - nifedipine 30mg QID, patients blood pressure much better controlled -We will continue to watch blood pressure very closely. Given current renal failure somewhat inhibits th e addition of Aldactone as well as thiazides as well as CECI/ARB's. 2. Cardiac arrest - PEA in etiology, pt became hypothermic and sub sequently bradycardic 3. Type B aortic dissection s/p EVAR - has residual descending aortic dissect ion extending into iliacs. No evidence of rupture on CTA. Reviewed by vascular surgery - appreciate assitance - optimal BP Control as above 4. Acute on chronic systolic heart failure -Improved significantly 5. Shock - resolved 6. JENNIFER on CKD -On dialysis 7. Acute hypoxic respiratory failure - now has tracheostomy- per ICU team 8. Stroke: - CT head and MRI with evidence of prior CVA - TTE with possible PFO - m continue to monitor for further neurologic improvement. I believe given patient's overall c ondition would like to see significant improvement. Will follow. Please call if questions. [facility] Cardiology Electronically Signed by Giancarlo Phan MD on 06/27 10/14 at 1730 RPT #:[id number] END OF REPORT 2020-07-18 19:49:00-00:[address] [facility] ([facility]) Nephrology Progress Note REPORT#:[id number] REPORT STATUS: Signed DATE:07/18/20 TIME: 1948 PATIENT: JORGE GOINS UNIT #: [id number] ROOM/BED: [address] : [birth year] AGE: 34 SEX: M ATTEND: Luis M Olmedo MD ADM AUTHOR: Ceferino De La Garza MD * ALL edits or amendments must be made on the [employer] document * Subjective Comments: seen at bedside Objective General VS/I O: Vital Signs: Date Time Temp Pulse Resp B/P B/P Pulse O2 O2 F low FiO2 Mean Ox Delivery Rate 07/18 1900 63 38 120/61 83 99 07/18 1845 61 22 128/64 89 100 07/18 1830 63 17 126/64 90 99 07/18 1815 60 19 124/58 85 99 07/18 1800 61 20 124/60 85 99 07/18 1745 61 21 122/58 85 99 07/18 1730 60 19 125/59 85 99 07/18 1715 61 19 119/57 80 98 07/18 1700 61 18 116/56 80 98 07/18 1645 62 19 117/56 78 98 07/18 1630 62 19 121/57 83 97 07/18 1615 62 18 120/57 82 97 07/18 1600 63 20 125/56 84 97 07/18 1545 64 21 122/60 87 97 07/18 1530 64 22 118/55 79 96 07/18 1515 66 29 117/60 80 97 07/18 1500 67 21 111/57 79 95 07/18 1445 82 30 117/56 80 99 07/18 1430 66 33 126/55 81 96 07/18 1415 65 32 133/60 87 97 07/18 1400 66 27 132/60 87 97 07/18 1345 65 135/63 90 97 07/18 1330 67 29 131/62 89 97 07/18 1315 67 29 130/62 88 98 07/18 1300 66 34 128/61 86 99 07/18 1245 68 21 118/57 81 98 07/18 1230 70 17 126/63 90 97 07/18 1215 69 24 126/62 85 100 07/18 1200 79 24 117/57 80 100 07/18 1145 71 35 122/56 81 100 01 1130 75 22 120/56 80 100 07/18 1115 69 18 119/58 81 100 01 1100 67 34 124/61 84 100 07/18 1045 62 29 136/62 92 100 07/18 1030 64 35 130/65 89 99 07/18 1015 62 39 138/63 94 98 01/ 1000 63 32 136/65 93 98 07/18 0945 62 29 136/64 92 98 07/18 0937 100 5 28 Tracheostomy collar 07/18 0930 62 30 133/63 90 99 07/18 0915 65 17 136/64 92 100 07/18 0900 64 24 135/64 91 100 07/18 0845 64 25 136/65 94 100 07/18 0830 63 30 130/63 88 100 07/18 0815 62 24 131/64 90 100 07/18 0800 5 28 Tracheostomy collar 07/18 0800 62 19 129/66 90 100 07/18 0745 71 23 131/68 94 100 07/18 0730 80 31 123/64 86 100 07/18 0715 62 25 133/61 88 100 07/18 0700 62 31 131/62 88 100 07/18 0645 59 32 135/64 92 100 07/18 0630 59 38 133/64 92 100 07/18 0615 58 30 128/64 89 99 07/18 0600 58 20 136/65 94 97 07/18 0545 56 23 137/68 94 98 07/18 0530 56 22 141/70 98 98 07/18 0515 58 34 139/72 100 98 07/18 0500 72 25 138/72 99 100 07/18 0445 58 34 143/73 102 100 07/18 0430 54 17 137/71 99 100 07/18 0415 59 24 131/66 92 97 01/ 0400 57 19 143/75 103 100 01 0349 36.5 56 18 148/56 86 100 07/18 0337 58 25 123/70 91 100 01 0330 64 23 100 01 0300 58 12 140/71 99 100 07/18 0245 57 21 142/72 101 100 01/ 0230 57 17 143/72 101 100 01 0215 60 14 133/66 93 100 01 0200 58 18 141/68 98 100 07/18 0130 58 17 148/72 103 100 07/18 0115 59 17 146/70 100 100 07/18 0100 58 18 143/72 100 100 07/18 0045 59 16 139/69 98 100 07/18 0030 58 18 141/71 98 100 07/18 0015 59 17 140/68 97 100 07/18 0000 58 17 140/68 97 100 07/17 2345 59 17 147/72 101 100 07/17 2343 36.7 56 147/67 93 07/17 2330 59 18 146/71 101 100 07/17 2315 59 18 148/74 105 100 07/17 2300 60 17 145/72 102 100 07/17 2245 57 16 146/73 103 100 07/17 2230 58 18 144/72 100 100 07/17 2215 61 18 148/73 104 100 07/17 2200 59 18 148/70 102 100 07/17 2157 59 19 100 07/17 2153 100 5 28 Tracheostomy collar 07/17 2145 62 18 151/72 103 100 07/17 2130 60 17 150/71 104 100 07/17 2115 61 30 151/74 103 100 07/17 2100 62 13 151/74 102 100 07/175 63 20 151/74 104 100 07/17 2029 61 18 157/77 110 100 07/17 2014 62 19 154/74 107 100 07/17 1999 63 19 153/75 107 100 24 hour I O ending at 0700: 07/18 0700 07/17 1900 Intake Total 700.00 780.00 Output Total 400 1350 Balance 300.00 -570.00 Intake, Free 400 Water Intake, IV 300.00 480.00 Intake, Tube 300 Feeding Output, 1000 Hemodialysis Output, Stool 200 150 Output, Urine 200 200 Patient 87.7 kg Weight Weight Bed scale Measurement Method Medications Active Meds + DC'd Last 24 Hrs Nifedipine 30 MG Q6HR FEED-TUBE Labetalol HCl 0 .STK-MED ONE .ROUTE (DC) Losartan Potassium 50 MG DAILY PO Prednisone 30 MG DAILY PO Heparin Sodium (Porcine) 2,000 UNIT DIALYSIS-DOS E BEFORE IV (CKD) Nifedipine 20 MG Q6HR FEED-TUBE (DC) Methylprednisolone Sodium Succinate 40 MG Q12HR IV (DC) Heparin Sodium (Porcine) 5,000 UNIT DIALYSIS-DOS E AFTER MISC Sodium Chloride 1,000 ML ASDIR PRN IV Linezolid 600 MG Q12HR FEED-TUBE (DC) Clonidine HCl 0.3 MG Q7D TRANSDERM (CKD) Nicardipine HCl 200 ML TITRATE IV Labetalol HCl 10 MG Q6H PRN PRN IV Acetaminophen 650 MG Q4H PRN PRN FEED-TUBE Isosorbide Mononitrate 30 MG BID FEED-TUBE Potassium Chloride 100 ML ASDIR PRN IV Potassium Bicarbonate/Citric Acid 20 MEQ ASDIR P O (CKD) Potassium Chloride 100 ML ASDIR PRN IV Hydralazine HCl 100 MG Q8HR PO Labetalol HCl 400 MG Q8HR PO Magnesium 100 ML ASDIR PRN IV Magnesium Sulfate 50 ML ASDIR PRN IV Magnesium Sulfate 100 ML ASDIR PRN IV Aspirin 81 MG DAILY FEED-TUBE Atorvastatin Calcium 40 MG DAILY FEED-TUBE Albuterol/Ipratropium 3 ML RTQ6H INH Dextrose/Water 25 ML ASDIR PRN IV Glucagon 1 MG ASDIR PRN IM Insulin Human Lispro LOW DOSE SCALE ASDIR SUBQ Sterile Water 1 ML ASDIR PRN IM Famotidine 20 MG DAILY PO Heparin Sodium (Porcine) 5,000 UNIT Q12HR SUBQ Physical Exam General appearance: awake Head/eyes: normal conjunctiva/sclera Neck: trach in place Respiratory: symmetric expansion Genitourinary: zuñiga, urine (appears pink) Extremities: pedal edema improved Musculoskeletal: normal inspection 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, oriented X 3 Hemodialysis access: Type: vascath Results Findings/Data: Laboratory Tests 07/18 07/18 07/18 07/17 1147 0238 0232 2335 Chemistry Sodium (137 - 145 mmol/L) 140 Potassium (3.4 - 5.0 mmol/L) 3.7 Chloride (98 - 107 mmol/L) 107 Carbon Dioxide (22 - 30 mmol/L) 22 BUN (9 - 20 mg/dL) 50 H Creatinine (0.7 - 1.3 mg/dL) 4.0 H Glomerular Filtr Rate (>60) 22 L Glucose (74 - 106 mg/dL) 125 H POC Glucose (74 - 106 MG/DL) 108 H 127 H 117 H Calcium (8.4 - 10.2 mg/dL) 8.1 L Magnesium (1.6 - 2.3 mg/dL) 1.9 Laboratory Tests 07/18 0232 Hematology WBC (5.0 - 12.0 x10 3/uL) 10.8 RBC (4.70 - 6.10 x10 6/uL) 3.44 L Hgb (14.0 - 18.0 g/dL) 9.4 L Hct (37.0 - 49.0 %) 31.4 L MCV (80 - 94 fL) 91 MCH (27 - 31 pg) 27.3 MCHC (33 - 37 g/dL) 29.9 L RDW (11.5 - 15.5 %) 15.7 H Plt Count (130 - 400 x10 3/uL) 276 MPV (9.4 - 16.4 fL) 11.0 Neut % (Auto) (43 - 65 %) 94.0 H Lymph % (Auto) (20.5 - 45.5 %) 3.7 L Citrus % (Auto) (5.5 - 11.7 %) 1.1 L Eos % (Auto) (0.9 - 2.9 %) 0.2 L Baso % (Auto) (0.2 - 1.0 %) 0.4 Neut # (Auto) (2.2 - 4.8 x10 3/uL) 10.14 H Lymph # (Auto) (1.3 - 2.9 x10 3/uL) 0.40 L Citrus # (Auto) (0.3 - 0.8 x10 3/uL) 0.12 L Eos # (Auto) (0.0 - 0.2 x10 3/uL) 0.02 Baso # (Auto) (0.0 - 0.1 x10 3/uL) 0.04 Immature Gran % (0.0 - 2.0 %) 0.6 Nucleated RBC % (0 - 1.0 %) 0.0 Diagnosis, Assessment Plan Free Text A P: JENNIFER hypotension AAA lactic acidosis severe metabolic acidosis- resolved Metabolic alkalosis - resolved follwo up am labs hd as needed Urine output is improving as well-we will monito r for renal recovery Ok to resume losartan at 2100 RPT #:[id number] END OF REPORT 2020-07-18 15:37:00-00:[address] [facility] ([facility]) Critical Care Progress Note REPORT#:[id number] REPORT STATUS: Signed DATE:07/18/20 TIME: 153 PATIENT: JORGE GOINS UNIT #: [id number] ROOM/BED: [address] : [birth year] AGE: 34 SEX: M ATTEND: Luis M Olmedo MD ADM AUTHOR: Papi England MD * ALL edits or amendments must be made on the el [employer]/computer document * Subjective Chief Complaint: on TC mental status stable on cardene Objective General VS/I O Last Documented: Result Date Time Pulse Ox 100 07/18 0800 B/P 129/66 07/18 0800 B/P Mean 90 07/18 0800 Pulse 62 07/18 0800 Resp 19 07/18 0800 Temp 36.5 07/18 0349 FiO2 28 07/17 2152 O2 Delivery Tracheostomy collar 07/17 2152 O2 Flow Rate 5 07/17 2152 24 hour I O ending at 0700: 07/18 0700 07/17 1900 Intake Total 700.00 780.00 Output Total 400 1350 Balance 300.00 -570.00 Intake, Free 400 Water Intake, IV 300.00 480.00 Intake, Tube 300 Feeding Output, 1000 Hemodialysis Output, Stool 200 150 Output, Urine 200 200 Patient 87.7 kg Weight Weight Bed scale Measurement Method PATIENT WEIGHT: Weight (lb): 193 Weight (oz): 5.53 Weight (kg): 87.700 Medications: Active Meds + DC'd Last 24 Hrs Nifedipine 30 MG Q6HR FEED-TUBE Losartan Potassium 50 MG DAILY PO Prednisone 30 MG DAILY PO Heparin Sodium (Porcine) 2,000 UNIT DIALYSIS-DOS E BEFORE IV (CKD) Nifedipine 20 MG Q6HR FEED-TUBE (DC) Methylprednisolone Sodium Succinate 40 MG Q12HR IV (DC) Heparin Sodium (Porcine) 5,000 UNIT DIALYSIS-DOS E AFTER MISC Sodium Chloride 1,000 ML ASDIR PRN IV Linezolid 600 MG Q12HR FEED-TUBE (DC) Clonidine HCl 0.3 MG Q7D TRANSDERM (CKD) Nicardipine HCl 200 ML TITRATE IV Labetalol HCl 10 MG Q6H PRN PRN IV Acetaminophen 650 MG Q4H PRN PRN FEED-TUBE Isosorbide Mononitrate 30 MG BID FEED-TUBE Potassium Chloride 100 ML ASDIR PRN IV Potassium Bicarbonate/Citric Acid 20 MEQ ASDIR P O (CKD) Potassium Chloride 100 ML ASDIR PRN IV Hydralazine HCl 100 MG Q8HR PO Labetalol HCl 400 MG Q8HR PO Magnesium 100 ML ASDIR PRN IV Magnesium Sulfate 50 ML ASDIR PRN IV Magnesium Sulfate 100 ML ASDIR PRN IV Aspirin 81 MG DAILY FEED-TUBE Atorvastatin Calcium 40 MG DAILY FEED-TUBE Albuterol/Ipratropium 3 ML RTQ6H INH Dextrose/Water 25 ML ASDIR PRN IV Glucagon 1 MG ASDIR PRN IM Insulin Human Lispro LOW DOSE SCALE ASDIR SUBQ Sterile Water 1 ML ASDIR PRN IM Famotidine 20 MG DAILY PO Heparin Sodium (Porcine) 5,000 UNIT Q12HR SUBQ Physical Exam General appearance: alert, awake Head/Eyes: atraumatic, normocephalic Cardiovascular: normal heart sounds, normal S1 S 2, normal rate and rhythm Respiratory/Chest: aerating well, clear to auscu ltation Abdomen: soft, non-tender, normal bowel sounds, no distention Extremities: no edema Neuro/RADIOTELEGRAPHIST: disoriented Results Findings/Data: Laboratory Tests 07/18/20 023: [Embedded Image Not Available] Laboratory Tests 07/18 07/18 07/18 07/17 1147 0238 0232 2335 Chemistry Sodium (137 - 145 mmol/L) 140 Potassium (3.4 - 5.0 mmol/L) 3.7 Chloride (98 - 107 mmol/L) 107 Carbon Dioxide (22 - 30 mmol/L) 22 BUN (9 - 20 mg/dL) 50 H Creatinine (0.7 - 1.3 mg/dL) 4.0 H Glomerular Filtr Rate (>60) 22 L Glucose (74 - 106 mg/dL) 125 H POC Glucose (74 - 106 MG/DL) 108 H 127 H 117 H Calcium (8.4 - 10.2 mg/dL) 8.1 L Magnesium (1.6 - 2.3 mg/dL) 1.9 Laboratory Tests 07/18 231 Hematology WBC (5.0 - 12.0 x10 3/uL) 10.8 RBC (4.70 - 6.10 x10 6/uL) 3.44 L Hgb (14.0 - 18.0 g/dL) 9.4 L Hct (37.0 - 49.0 %) 31.4 L MCV (80 - 94 fL) 91 MCH (27 - 31 pg) 27.3 MCHC (33 - 37 g/dL) 29.9 L RDW (11.5 - 15.5 %) 15.7 H Plt Count (130 - 400 x10 3/uL) 276 MPV (9.4 - 16.4 fL) 11.0 Neut % (Auto) (43 - 65 %) 94.0 H Lymph % (Auto) (20.5 - 45.5 %) 3.7 L Citrus % (Auto) (5.5 - 11.7 %) 1.1 L Eos % (Auto) (0.9 - 2.9 %) 0.2 L Baso % (Auto) (0.2 - 1.0 %) 0.4 Neut # (Auto) (2.2 - 4.8 x10 3/uL) 10.14 H Lymph # (Auto) (1.3 - 2.9 x10 3/uL) 0.40 L Citrus # (Auto) (0.3 - 0.8 x10 3/uL) 0.12 L Eos # (Auto) (0.0 - 0.2 x10 3/uL) 0.02 Baso # (Auto) (0.0 - 0.1 x10 3/uL) 0.04 Immature Gran % (0.0 - 2.0 %) 0.6 Nucleated RBC % (0 - 1.0 %) 0.0 Diagnosis, Assessment Plan Free text A P: 34 year old male with history of aortic dissecti on s/p EVAR came in for hypertensive urgency A/P: Neuro -MRI multiple ischemic cva Neuro status slowly improving More awake. following commands Pulm -s/p trach On TC CV #s/p Cardiac Arrest - PEA hypotensive. ROSC achieved after 9 minutes - likely from cardiogenic shock EF 30-34% - Aortic dissection ruled out from CTA chest , a bdomen and pelvis #hx of EVAR for aortic dissection and h/o endole ak in the past - per vascular surgery -uncontrolled hypertension on cardene will titrate po meds to d/c cardene # Fever positive blood culture respiratory source'unlikley clabsi abx GI on tube feeidng Renal Acute renal failure on hd gi ppx: pepcid dvt ppx: heparin Diet: tube feeds condition stable prognosis guarded Transfer to IMU once off cardene at 1540 RPT #:[id number] END OF REPORT 2020-07-18 15:06:00-00:[address] [facility] ([facility]) Neurology Progress Note REPORT#:[id number] REPORT STATUS: Signed DATE:07/18/20 TIME: 1506 PATIENT: JORGE GOINS UNIT #: [id number] ROOM/BED: [address] : [birth year] AGE: 34 SEX: M ATTEND: Luis M Olmedo MD ADM AUTHOR: William Chino DO * ALL edits or amendments must be made on the [employer]/computer document * Subjective Chief Complaint: no new issue Objective General VS: Last Documented: Result Date Time Pulse Ox 100 07/18 0800 B/P 129/66 07/18 0800 B/P Mean 90 07/18 0800 Pulse 62 07/18 0800 Resp 19 07/18 0800 Temp 97.7 07/18 0349 FiO2 28 07/17 2152 O2 Delivery Tracheostomy collar 07/17 2152 O2 Flow Rate 5 07/17 2152 PATIENT WEIGHT: Weight (lb): 193 Weight (oz): 5.53 Weight (kg): 87.700 Medications Current Home Medications ALBUTEROL (PROAIR HFA 90 MCG/ACT 8.5 GM) 2 PUFF INH RTQ6H PRN PRN SOB ASPIRIN EC (ECOTRIN) 81 MG PO DAILY CARVEDILOL (COREG) 25 MG PO BID MEALS ACETAMINOPHEN/CODEINE (TYLENOL WITH CODE INE #4 300/60 MG) 1 TAB PO Q6H PRN PRN PAIN ATORVASTATIN (LIPITOR) 20 MG PO BEDTIME LOSARTAN (COZAAR) 100 MG PO DAILY NIFEdipine CC (ADALAT CC) 90 MG PO Q12HR HYDROCHLOROTHIAZIDE (HYDRODIURIL) 25 MG PO DAILY Active Meds + DC'd Last 24 Hrs Nifedipine 30 MG Q6HR FEED-TUBE Losartan Potassium 50 MG DAILY PO Prednisone 30 MG DAILY PO Heparin Sodium (Porcine) 2,000 UNIT DIALYSIS-DOS E BEFORE IV (CKD) Nifedipine 20 MG Q6HR FEED-TUBE (DC) Methylprednisolone Sodium Succinate 40 MG Q12HR IV (DC) Heparin Sodium (Porcine) 5,000 UNIT DIALYSIS-DO SE AFTER MISC Sodium Chloride 1,000 ML ASDIR PRN IV Linezolid 600 MG Q12HR FEED-TUBE (DC) Clonidine HCl 0.3 MG Q7D TRANSDERM (CKD) Nicardipine HCl 200 ML TITRATE IV Labetalol HCl 10 MG Q6H PRN PRN IV Acetaminophen 650 MG Q4H PRN PRN FEED-TUBE Isosorbide Mononitrate 30 MG BID FEED-TUBE Potassium Chloride 100 ML ASDIR PRN IV Potassium Bicarbonate/Citric Acid 20 MEQ ASDIR P O (CKD) Potassium Chloride 100 ML ASDIR PRN IV Hydralazine HCl 100 MG Q8HR PO Labetalol HCl 400 MG Q8HR PO Magnesium 100 ML ASDIR PRN IV Magnesium Sulfate 50 ML ASDIR PRN IV Magnesium Sulfate 100 ML ASDIR PRN IV Aspirin 81 MG DAILY FEED-TUBE Atorvastatin Calcium 40 MG DAILY FEED-TUBE Albuterol/Ipratropium 3 ML RTQ6H INH Dextrose/Water 25 ML ASDIR PRN IV Glucagon 1 MG ASDIR PRN IM Insulin Human Lispro LOW DOSE SCALE ASDIR SUBQ Sterile Water 1 ML ASDIR PRN IM Famotidine 20 MG DAILY PO Heparin Sodium (Porcine) 5,000 UNIT Q12HR SUBQ Physical Exam General appearance: no new acute finding Diagnosis, Assessment Plan Problem List/A P: 1. Hypertensive urgency 2. Metabolic encephalopathy 3. Critical illness myopathy Free Text A P: Assessment 1. Acute encephalopathy - multifactorial - metab olic/hypertensive emergency/ acute stroke 2. Acute ischemic strokes, suspect embolic sourc e, + PFO, b/l lower extremity dopplers negative 3. s/p PEA arrest 06/11/20 4. hypertensive emergency - 5. acute respiratory failure, s/p trach and peg 6. complicated type b aortic dissection, in need of extension TEVAR when stable per vascular surgery 7.Severe critical illness myopathy ... P - -continue medical management -consider PFO closure in future when medically s tabilized -will follow at 1508 RPT #:[id number] END OF REPORT 2020-07-18 14:30:00-00:00 [facility]) Vascular Surgery Progress Note REPORT#:[id number] REPORT STATUS: Signed DATE:07/18/20 TIME: 1430 PATIENT: JORGE GOINS UNIT #: [id number] ROOM/BED: [address] : [birth year] AGE: 34 SEX: M ATTEND: Luis M Olmedo MD ADM AUTHOR: Kleber Newby MD * ALL edits or amendments must be made on the rimidi/computer document * Subjective Chief Complaint: patient talking over trach, type d aortic dissec tion HPI The patient remains critically ill and r emains on trach collar. Patient is now able to talk over the trach and is oriented and alert. Patient able to move the bilateral upper extremities. However, patient re alyse unable to move the bilateral lower extremities. Neurology is following appreciate recommendations. Patient denies fever chills nausea vomiting. Objective General VS/I O Last Documented: Result Date Time Pulse Ox 100 07/18 0800 B/P 129/66 07/18 0800 B/P Mean 90 07/18 0800 Pulse 62 07/18 0800 Resp 19 07/18 0800 Temp 97.7 07/18 0349 FiO2 28 07/17 2152 O2 Delivery Tracheostomy collar 07/17 2152 O2 Flow Rate 5 07/17 2152 24 hour I O ending at 0700: 07/18 0700 07/17 1900 Intake Total 700.00 780.00 Output Total 400 1350 Balance 300.00 -570.00 Intake, Free 400 Water Intake, IV 300.00 480.00 Intake, Tube 300 Feeding Output, 1000 Hemodialysis Output, Stool 200 150 Output, Urine 200 200 Patient 87.7 kg Weight Weight Bed scale Measurement Method PATIENT WEIGHT: Weight (lb): 193 Weight (oz): 5.53 Weight (kg): 87.700 General appearance: alert, awake HEENT: anicteric Neck: trach Cardiovascular: regular rate Respiratory: symmetric expansion Abdomen: soft Genitourinary: zuñiga Extremities: palpable radial and dorsalis pedis pulses bilaterally 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, moving bilateral hands to comm and Skin: no flank or back ecchymosis Psychiatry: normal affect, normal mood Diagnosis, Assessment Plan Free Text A P: 34 year old male with complicated type B dissection in need of extension TEVAR when stable Keep BP less than 120mmhg with heart rate goal o f 60 bpm Extubate when feasible: Patient has now been tra ched, wean from vent as tolerated Will need further TEVAR when stable Vascular surgery will continue to follow closely . Patient remains on broad-spectrum antibi otics with ID following for antibiotic recommendations. Most recent blood cultures x2 no growth after 5 days which are now finalized. Given the patient's aortic endogr aft the patient would benefit from prolonged course of antibiotics given high risk of graft infection with previously positive blood cultures. Appreciate nephrology recommendations. Patient improving but remains critically ill. Di scussed with ICU nurse. Electronically Signed by Kleber Newby MD on 06/27 09/13 at 1434 RPT #:[id number] END OF REPORT 2020-07-18 06:47:00-00:[address] [facility] ([facility]) Infectious Dis. Progress Note REPORT#:[id number] REPORT STATUS: Signed DATE:07/18/20 TIME: 646 PATIENT: JORGE GOINS UNIT #: [id number] ROOM/BED: [address] : [birth year] AGE: 34 SEX: M ATTEND: Luis M Olmedo MD ADM AUTHOR: Faby Blanchard MD * ALL edits or amendments must be made on the [employer]/computer document * Subjective Chief Complaint: 07-07-20 INTUBATED UNRESPONSIVE BACTERMIA CVC WAS TAKEN OUT 07-08-2019 BREAHTING FAST UNRESPONSIVE NO FEVER ON THE VENT 07-09-2019 COMFRTABEL TODAY ON THE VENT SEDATED FEVER RENAL FUNCTION NOTED 07-10-2020 MORE AWAKE RESPONDS TO COMMNANDS RENAL FUNCTION NOTED: MAKING 160 M OF URINE SITLL ON THE VENT 07-13-20 no new changes 07-14-20 no overnight events, no fever 07-15-20 HD FOR TODAY 07-16-20 POSS 2ND ROUND OF HD TODAY 07-17-20 NO OVERNIGHT EVENTS 07-18-2020 AWAKE OCOMFRTABLE SMILING COUGHING NO FEVER TRACH SITE IS CLEAN TOLERAING TF Objective General VS/I O: Laboratory Tests 07/18/20 0232: [Embedded Image Not Available] 07/17/20 0216: [Embedded Image Not Available] Current Medications Sig/Ronan Start time Last Medication Dose Route Stop Time Status Admin Prednisone 30 MG DAILY 07/18 0900 UNV PO 07/26 1300 Heparin Sodium 2,000 UNIT DIALYSIS-DOSE 07/16 1 415 CKD BEFORE (Porcine) IV 08/15 1416 Nifedipine 20 MG Q6HR 07/16 1200 AC 07/18 FEED-TUBE 08/15 1201 0515 Methylprednisolone 40 MG Q12HR 07/15 1230 DCr Sodium Succinate IV 08/14 1231 2031 Heparin Sodium 5,000 UNIT DIALYSIS-DOSE AFTER 0830 AC 07/17 (Porcine) MISC 08/14 0831 1110 Sodium Chloride 1,000 ML ASDIR PRN 07/15 0830 AC 07/17 IV 08/14 0831 1110 Linezolid 600 MG Q12HR 07/14 1200 DCr 07/17 FEED-TUBE 07/21 1159 2031 Clonidine HCl 0.3 MG Q7D 07/12 1900 CKD 07/12 TRANSDERM 07/27 1246 1926 Nicardipine HCl 200 ML TITRATE 07/12 1430 AC IV 08/11 1431 0436 Labetalol HCl 10 MG Q6H PRN PRN 07/12 0100 AC IV 08/11 0101 1828 Acetaminophen 650 MG Q4H PRN PRN 07/06 2100 AC 0 07/15 FEED-TUBE 08/05 2101 0207 Isosorbide 30 MG BID 07/04 09 AC 07/17 Mononitrate FEED-TUBE 08/03 0901 2031 Potassium Chloride 100 ML ASDIR PRN 07/03 0300 A C 07/06 IV 08/02 0301 0606 Potassium 20 MEQ ASDIR 06/28 211 CKD 07/17 Bicarbonate/Citric PO 07/28 2116 0341 Acid Potassium Chloride 100 ML ASDIR PRN 06/28 2115 A C 07/09 IV 07/28 2116 0613 Hydralazine HCl 100 MG Q8HR 06/28 1400 AC 07/18 PO 07/28 1401 0516 Labetalol HCl 400 MG Q8HR 06/28 1400 AC 07/17 PO 07/27 1401 2032 Magnesium 100 ML ASDIR PRN 06/28 0600 AC 07/06 IV 07/28 0601 0451 Magnesium Sulfate 50 ML ASDIR PRN 06/28 0600 AC IV 07/28 0601 Magnesium Sulfate 100 ML ASDIR PRN 06/28 0600 AC IV 07/28 0601 Aspirin 81 MG DAILY 06/27 0900 AC 07/17 FEED-TUBE 07/27 0901 0858 Atorvastatin Calcium 40 MG DAILY 06/27 0900 AC 07/17 FEED-TUBE 07/27 0901 0857 Albuterol/Ipratropiu 3 ML RTQ6H 06/25 1400 AC m INH 07/25 1401 2152 Dextrose/Water 25 ML ASDIR PRN 06/21 2100 AC IV 07/21 210 1716 Glucagon 1 MG ASDIR PRN 06/21 2100 AC IM 07/21 2100 Insulin Human Lispro See Dose ASDIR 06/21 2100 A C 06/24 Insts (1) SUBQ 07/21 2100 0357 Sterile Water 1 ML ASDIR PRN 06/21 2100 AC IM 07/21 2100 Famotidine 20 MG DAILY 06/20 0900 AC 07/17 PO 07/20 0901 0857 Heparin Sodium 5,000 UNIT Q12HR 06/19 2100 AC (Porcine) SUBQ 07/19 2100 2030 Dose Instructions: (1)Insulin Human Lispro: LOW DOSE SCALE Recent Impressions-Last 72 Hrs RADIOLOGY - XR CHEST 1 V 07/16 0503 Report Impression - Status: SIGNED Entered: 07/16/2020 06 IMPRESSION: No acute cardiopulmonary abnormality. Impression By: Jered2 - Denny Mohamud MD RADIOLOGY - XR ABDOMEN 1 V 07/16 2134 Report Impression - Status: SIGNED Entered: 07/16/2020 223 IMPRESSION: Contrasted within the proximal small bowel sugge sting appropriate placement of PEG tube. Impression By: 16 - Kim Morrow MD Last Documented: Result Date Time Pulse Ox 97 07/18 0600 B/P 136/65 07/18 0600 B/P Mean 94 07/18 0600 Pulse 58 07/18 0600 Resp 20 07/18 06 Temp 36.5 07/18 0349 FiO2 28 07/17 2152 O2 Delivery Tracheostomy collar 07/17 2152 O2 Flow Rate 5 01/22 2153 Vital Signs Date Temp Pulse Resp B/P B/P Mean Pulse Ox FiO 2 07/17-07/18 36.4-36.8 54-83 10-34 116-159/56-79 78-111 97-100 28 24 hour I O ending at 0700: 07/18 0700 07/17 1900 Intake Total 700.00 780.00 Output Total 400 1350 Balance 300.00 -570.00 Intake, Free 400 Water Intake, IV 300.00 480.00 Intake, Tube 300 Feeding Output, 1000 Hemodialysis Output, Stool 200 150 Output, Urine 200 200 Patient 87.7 kg Weight Weight Bed scale Measurement Method PATIENT WEIGHT: Weight (lb): 193 Weight (oz): 5.53 Weight (kg): 87.700 Physical Exam General appearance: frail, awake ENT: TREACH SITE : DRY Cardiovascular: normal heart sounds Respiratory: no distress Abdomen: non-tender, soft, no distention, no gua rding, no rebound Genitourinary: zuñiga Skin: dry Treatment Prophylaxis Treatment Prophylaxis CVC/PICC documentation: The data below has been imported from nursing do cumentation. Any exceptions have been noted below under Provider comments. CVC/PICC insertion date/time: Dialysis catheter double Internal jugular Right Inserted 07/15/20 0200 Provider comments on imported nursing data: [] Diagnosis, Assessment Plan Problem List/A P: 1. Multifocal pneumonia 2. Bacteremia due to Enterobacter species 3. Bacteremia due to Enterococcus 4. Pneumonia due to enterobacter aerogenes 5. Renal failure Free Text A P: 07-16-2020 BACTERMIA : WILL FINISH THE JOB WITH LINEZOLID. ON STERIDS FOR POSSIBLE ISN 07-17-20 BACTEREMIA CONTINUE LINEZOLID 07-18-20 PNA: TERAETD MIXED BACTERMIA: TRAETED, INCLDUING 14 D AYS OF ABX POST LAST NEGATIVE BLOOD CX FOR ENTEROCOCCI>>>> D/C ALL ABX PT IS ON 10 DAY COURSE OF STEROIDS FOR ? ISN ID WILL SIGN OFF Electronically Signed by Faby Blanchard MD on 0 07/18/20 at 0651 RPT #:[id number] END OF REPORT 2020-07-17 23:42:00-00:00 [facility] ([facility] Critical Care Progress Note REPORT#:[id number] REPORT STATUS: Signed DATE:07/17/20 TIME: 2341 PATIENT: JORGE GOINS UNIT #: [id number] ROOM/BED: [address] : [birth year] AGE: 34 SEX: M ATTEND: Luis M Olmedo MD ADM AUTHOR: Papi England MD * ALL edits or amendments must be made on the [employer]/computer document * Subjective Chief Complaint: on TC mental status unchanged Objective General VS/I O Last Documented: Result Date Time Pulse Ox 100 07/17 2156 Pulse 59 07/17 2156 Resp 19 07/17 2156 FiO2 28 07/17 2152 O2 Delivery Tracheostomy collar 07/17 2152 O2 Flow Rate 5 07/17 2152 B/P 151/72 07/17 2144 B/P Mean 103 07/17 2144 Temp 36.7 07/17 1927 24 hour I O ending at 0700: 07/17 0700 07/16 1900 Intake Total 1106.00 1978.00 Output Total 350 2300 Balance 756.00 -322.00 Intake, Free 300 250 Water Intake, IV 806.00 1528.00 Intake, Tube 200 Feeding Output, 1000 Hemodialysis Output, Stool 100 700 Output, Urine 250 600 Patient 88.6 kg Weight Weight Bed scale Measurement Method PATIENT WEIGHT: Weight (lb): 195 Weight (oz): 5.27 Weight (kg): 88.600 Medications: Active Meds + DC'd Last 24 Hrs Heparin Sodium (Porcine) 2,000 UNIT DIALYSIS-DOS E BEFORE IV (CKD) Nifedipine 20 MG Q6HR FEED-TUBE Methylprednisolone Sodium Succinate 40 MG Q12HR IV Heparin Sodium (Porcine) 5,000 UNIT DIALYSIS-DOS E AFTER MISC Sodium Chloride 1,000 ML ASDIR PRN IV Linezolid 600 MG Q12HR FEED-TUBE Clonidine HCl 0.3 MG Q7D TRANSDERM (CKD) Nicardipine HCl 200 ML TITRATE IV Labetalol HCl 10 MG Q6H PRN PRN IV Acetaminophen 650 MG Q4H PRN PRN FEED-TUBE Isosorbide Mononitrate 30 MG BID FEED-TUBE Potassium Chloride 100 ML ASDIR PRN IV Potassium Bicarbonate/Citric Acid 20 MEQ ASDIR P O (CKD) Potassium Chloride 100 ML ASDIR PRN IV Hydralazine HCl 100 MG Q8HR PO Labetalol HCl 400 MG Q8HR PO Magnesium 100 ML ASDIR PRN IV Magnesium Sulfate 50 ML ASDIR PRN IV Magnesium Sulfate 100 ML ASDIR PRN IV Aspirin 81 MG DAILY FEED-TUBE Atorvastatin Calcium 40 MG DAILY FEED-TUBE Albuterol/Ipratropium 3 ML RTQ6H INH Dextrose/Water 25 ML ASDIR PRN IV Glucagon 1 MG ASDIR PRN IM Insulin Human Lispro LOW DOSE SCALE ASDIR SUBQ Sterile Water 1 ML ASDIR PRN IM Famotidine 20 MG DAILY PO Heparin Sodium (Porcine) 5,000 UNIT Q12HR SUBQ Physical Exam General appearance: awake Head/Eyes: atraumatic, normocephalic Cardiovascular: normal heart sounds, normal S1 S 2, normal rate and rhythm Respiratory/Chest: aerating well, clear to auscu ltation Abdomen: soft, non-tender, normal bowel sounds, no distention Extremities: no edema Neuro/RADIOTELEGRAPHIST: disoriented Results Findings/Data: Laboratory Tests 07/17/20215: [Embedded Image Not Available] Laboratory Tests 07/17 07/17 1226 0216 Chemistry Sodium (137 - 145 mmol/L) 146 H Potassium (3.4 - 5.0 mmol/L) 3.1 L Chloride (98 - 107 mmol/L) 110 H Carbon Dioxide (22 - 30 mmol/L) 22 BUN (9 - 20 mg/dL) 51 H Creatinine (0.7 - 1.3 mg/dL) 4.8 H Glomerular Filtr Rate (>60) 18 L Glucose (74 - 106 mg/dL) 136 H POC Glucose (74 - 106 MG/DL) 97 Calcium (8.4 - 10.2 mg/dL) 8.2 L Laboratory Tests 07/17 215 Hematology WBC (5.0 - 12.0 x10 3/uL) 8.6 RBC (4.70 - 6.10 x10 6/uL) 3.35 L Hgb (14.0 - 18.0 g/dL) 9.4 L Hct (37.0 - 49.0 %) 30.9 L MCV (80 - 94 fL) 92 MCH (27 - 31 pg) 28.1 MCHC (33 - 37 g/dL) 30.4 L RDW (11.5 - 15.5 %) 15.9 H Plt Count (130 - 400 x10 3/uL) 278 MPV (9.4 - 16.4 fL) 11.0 Neut % (Auto) (43 - 65 %) 90.8 H Lymph % (Auto) (20.5 - 45.5 %) 6.1 L Citrus % (Auto) (5.5 - 11.7 %) 1.6 L Eos % (Auto) (0.9 - 2.9 %) 0.2 L Baso % (Auto) (0.2 - 1.0 %) 0.6 Neut # (Auto) (2.2 - 4.8 x10 3/uL) 7.83 H Lymph # (Auto) (1.3 - 2.9 x10 3/uL) 0.53 L Citrus # (Auto) (0.3 - 0.8 x10 3/uL) 0.14 L Eos # (Auto) (0.0 - 0.2 x10 3/uL) 0.02 Baso # (Auto) (0.0 - 0.1 x10 3/uL) 0.05 Immature Gran % (0.0 - 2.0 %) 0.7 Nucleated RBC % (0 - 1.0 %) 0.0 Diagnosis, Assessment Plan Free text A P: 34 year old male with history of aortic dissecti on s/p EVAR came in for hypertensive urgency A/P: Neuro -MRI multiple ischemic cva Neuro status slowly improving More awake. Starting to track and follow command s intermittently #AMS as above Pulm -s/p trach On TC CV #s/p Cardiac Arrest - PEA hypotensive. ROSC achieved after 9 minutes - likely from cardiogenic shock EF 30-34% - Aortic dissection ruled out from CTA chest , a bdomen and pelvis #hx of EVAR for aortic dissection and h/o endole ak in the past - per vascular surgery -uncontrolled hypertension resume cardne keep systoli cBP around 140 # Fever positive blood culture respiratory source'unlikley clabsi abx GI on tube feeidng Renal Acute renal failure on hd gi ppx: pepcid dvt ppx: heparin Diet: tube feeds condition critical prognosis guarded at 2343 RPT #:[id number] END OF REPORT 2020-07-17 23:20:00-00:[address] [facility] ([facility]) Cardiology Progress Note REPORT#:[id number] REPORT STATUS: Signed DATE:07/17/20 TIME: 2319 PATIENT: JORGE GOINS UNIT #: [id number] ROOM/BED: [address] : [birth year] AGE: 34 SEX: M ATTEND: Luis M Olmedo MD ADM AUTHOR: Giancarlo Phan MD * ALL edits or amendments must be made on the [employer]computer document * Subjective Free Text Subj Notes Free Text Subj Notes: Patient more responsive toda y. He appears to be is stating to me that he cannot talk because of the trach. Otherwise he denies a ny chest pain or shortness of breath otherwise really no other acute complaint s at this time. Objective Physical Exam Head/Eyes: atraumatic, normocephalic ENT: moist mucosal membranes, normal nose Neck: non-tender, supple/no meningismus, traches otomy prsent Cardiovascular: CV assessment: regular rate and rhythm, no murm ur Respiratory: no distress, coarse breathsounds, m echanically ventialted Abdomen: soft, non-tender Upper extremity: UE assessment: normal capillary refill, normal temperature Lower extremity: LE assessment: normal capillary refill, normal temperature, no edema Musculoskeletal: normal inspection Neuro/RADIOTELEGRAPHIST: vented via trachesotomy, not followin g commands Diagnosis, Assessment Plan Free Text DxA P Notes Free Text DxA P Notes: 1. Hypertensive urgency/emergency - presented with severely elevated BP requiring 2 IV infusions, subsequently suffered PEA cardiac arrest - BP control improving - cont hydralazine 100mg Q8H, labetalol 400mg Q 8H, clonidine patch has been increased to 0.3 - n change patient's Norvasc to nifedipine for hopefully better blood pressure control 20 mg twice daily and ISMN 30mg BID -We will continue to watch blood pressure very closely. Given current renal failure somewhat inhibits th e addition of Aldactone as well as thiazides as well as CECI/ARB's. 2. Cardiac arrest - PEA in etiology, pt became hypothermic and sub sequently bradycardic 3. Type B aortic dissection s/p EVAR - has residual descending aortic dissect ion extending into iliacs. No evidence of rupture on CTA. Reviewed by vascular surgery - appreciate assitance - optimal BP Control as above 4. Acute on chronic systolic heart failure -Improved significantly 5. Shock - resolved 6. JENNIFER on CKD -On dialysis 7. Acute hypoxic respiratory failure - now has tracheostomy- per ICU team 8. Stroke: - CT head and MRI with evidence of prior CVA - TTE with possible PFO - m continue to monitor for further neurologic improvement. I believe given patient's overall c ondition would like to see significant improvement. Will follow. Please call if questions. [facility] Cardiology Electronically Signed by Giancarlo Phan MD on 06/27 08/16 at 2321 RPT #:[id number] END OF REPORT 2020-07-17 20:58:00-00:[address] [facility] ([facility]) Nephrology Progress Note REPORT#:[id number] REPORT STATUS: Signed DATE:07/17/20 TIME: 2057 PATIENT: JORGE GOINS UNIT #: [id number] ROOM/BED: [address] : [birth year] AGE: 34 SEX: M ATTEND: Luis M Olmedo MD ADM AUTHOR: Jojo York MD * ALL edits or amendments must be made on the [employer]idi/computer document * Subjective Comments: events noted Objective General VS/I O: Vital Signs: Date Time Temp Pulse Resp B/P B/P Pulse O2 O2 Fl ow FiO2 Mean Ox Delivery Rate 07/170 61 18 159/78 111 100 07/17 1926 98.1 61 12 156/78 104 07/17 1915 61 18 156/78 108 100 07/17 1900 61 18 154/79 110 100 07/17 1845 64 19 151/76 106 100 07/17 1830 65 19 150/75 106 100 07/17 1815 64 16 148/77 105 100 07/17 1800 61 17 156/78 110 100 07/17 1745 62 19 156/75 107 100 07/17 1730 65 17 150/79 104 100 07/17 1715 62 28 149/72 103 100 07/17 1645 65 22 140/69 95 100 07/17 1630 63 20 142/67 95 100 07/17 1615 61 19 139/65 93 100 07/17 1600 98.2 01 1600 63 22 135/64 91 100 07/17 1545 63 22 136/65 94 100 07/17 1530 62 23 134/62 89 100 07/17 1515 63 23 135/63 90 100 07/17 1500 63 23 134/62 89 100 07/17 1445 63 21 140/67 95 100 07/17 1430 66 22 135/67 93 100 07/17 1415 66 21 139/68 96 100 07/17 1400 66 23 138/72 97 100 07/17 1345 70 29 129/70 94 100 07/17 1330 70 18 125/69 90 100 07/17 1315 68 19 133/70 95 100 07/17 1300 67 20 135/71 95 100 07/17 1245 69 20 131/70 93 100 07/17 1230 83 16 127/67 90 100 07/17 1215 66 22 135/66 94 100 07/17 1200 97.7 07/17 1200 66 22 134/66 93 100 07/17 1145 67 22 132/67 92 100 07/17 1130 68 21 125/64 85 100 07/17 1116 69 18 116/57 78 100 07/17 1100 63 19 133/60 88 100 07/17 1045 62 18 136/60 89 100 07/17 1032 66 21 131/61 88 100 07/17 1030 64 23 100 07/17 1000 75 23 119/59 85 100 07/17 0945 78 22 125/60 87 99 07/17 0941 83 25 132/60 86 100 07/17 0930 65 26 117/57 81 100 07/17 0915 70 26 130/69 92 100 07/17 0914 69 19 140/72 98 99 07/17 0900 65 22 144/76 102 100 07/17 0845 66 19 139/70 98 100 07/17 0830 67 22 133/64 90 100 07/17 0815 64 17 139/67 96 100 07/17 0800 66 15 137/63 93 100 / 0800 100 5 28 Tracheostomy collar 07/17 0745 66 13 136/65 91 97 / 0730 97.6 07/17 0730 Tracheostomy collar 07/17 0730 66 10 136/62 92 100 / 0715 67 21 137/66 91 100 / 0700 65 21 134/61 88 100 / 0601 66 33 127/65 87 100 / 0600 68 35 100 07/17 0545 63 3 140/69 95 99 / 0530 65 12 138/68 96 99 07/17 0521 64 10 99 / 0515 67 26 143/77 100 97 / 0500 67 19 143/79 105 99 / 0445 69 10 136/72 95 98 / 0430 67 27 130/68 93 98 07/17 0415 67 21 135/71 95 97 / 0400 67 19 132/68 93 99 07/17 0350 98.0 74 20 132/64 86 / 0345 68 20 132/64 90 98 07/17 0330 67 23 132/64 90 99 07/17 0324 67 22 98 07/17 0315 69 23 136/65 91 99 / 0300 69 29 127/59 86 99 / 0245 67 20 134/61 88 100 07/17 0230 65 18 135/68 92 100 07/17 0218 100 8 35 Tracheostomy collar 07/17 0215 64 22 132/65 91 100 / 0200 64 20 129/66 88 100 07/17 0145 65 11 128/63 88 99 07/17 0130 67 1 128/66 88 100 07/17 0115 64 0 129/65 88 100 07/17 0100 64 0 131/66 90 100 / 0045 64 0 129/66 89 100 01/ 0030 64 10 131/67 91 100 07/17 0015 64 23 131/67 91 98 01/ 0000 63 20 132/66 93 100 07/16 2345 97.7 63 17 133/67 89 07/16 2345 64 23 133/67 92 100 01 2330 64 23 133/66 91 99 07/16 2315 64 26 138/67 93 99 07/16 2300 63 23 136/69 94 99 01/21 2245 63 23 133/68 93 99 07/160 62 26 144/69 100 95 07/165 63 22 139/69 96 98 07/160 63 23 136/69 96 100 07/165 63 28 136/68 94 07/160 68 31 139/72 98 07/165 68 26 135/66 93 07/16 2100 77 130/65 91 100 24 hour I O ending at 0700: 07/17 0700 07/16 1900 Intake Total 1106.00 1978.00 Output Total 350 2300 Balance 756.00 -322.00 Intake, Free 300 250 Water Intake, IV 806.00 1528.00 Intake, Tube 200 Feeding Output, 1000 Hemodialysis Output, Stool 100 700 Output, Urine 250 600 Patient 88.6 kg Weight Weight Bed scale Measurement Method Medications Active Meds + DC'd Last 24 Hrs Diphenhydramine HCl 25 MG ONCE ONE IV (DC) Heparin Sodium (Porcine) 2,000 UNIT DIALYSIS-DOS E BEFORE IV (CKD) Nifedipine 20 MG Q6HR FEED-TUBE Methylprednisolone Sodium Succinate 40 MG Q12HR IV Heparin Sodium (Porcine) 5,000 UNIT DIALYSIS-DOS E AFTER MISC Sodium Chloride 1,000 ML ASDIR PRN IV Linezolid 600 MG Q12HR FEED-TUBE Clonidine HCl 0.3 MG Q7D TRANSDERM (CKD) Nicardipine HCl 200 ML TITRATE IV Labetalol HCl 10 MG Q6H PRN PRN IV Acetaminophen 650 MG Q4H PRN PRN FEED-TUBE Isosorbide Mononitrate 30 MG BID FEED-TUBE Potassium Chloride 100 ML ASDIR PRN IV Potassium Bicarbonate/Citric Acid 20 MEQ ASDIR P O (CKD) Potassium Chloride 100 ML ASDIR PRN IV Hydralazine HCl 100 MG Q8HR PO Labetalol HCl 400 MG Q8HR PO Magnesium 100 ML ASDIR PRN IV Magnesium Sulfate 50 ML ASDIR PRN IV Magnesium Sulfate 100 ML ASDIR PRN IV Aspirin 81 MG DAILY FEED-TUBE Atorvastatin Calcium 40 MG DAILY FEED-TUBE Albuterol/Ipratropium 3 ML RTQ6H INH Dextrose/Water 25 ML ASDIR PRN IV Glucagon 1 MG ASDIR PRN IM Insulin Human Lispro LOW DOSE SCALE ASDIR SUBQ Sterile Water 1 ML ASDIR PRN IM Famotidine 20 MG DAILY PO Heparin Sodium (Porcine) 5,000 UNIT Q12HR SUBQ Physical Exam General appearance: no acute distress Head/eyes: normal conjunctiva/sclera Neck: trach in place Respiratory: symmetric expansion Genitourinary: zuñiga, urine (appears pink) Extremities: pedal edema improved Musculoskeletal: normal inspection Neuro/RADIOTELEGRAPHIST: SEDATED Hemodialysis access: Type: vascath Psychiatry: unable to evaluate Results Findings/Data: Laboratory Tests 07/17 07/17 1226 0216 Chemistry Sodium (137 - 145 mmol/L) 146 H Potassium (3.4 - 5.0 mmol/L) 3.1 L Chloride (98 - 107 mmol/L) 110 H Carbon Dioxide (22 - 30 mmol/L) 22 BUN (9 - 20 mg/dL) 51 H Creatinine (0.7 - 1.3 mg/dL) 4.8 H Glomerular Filtr Rate (>60) 18 L Glucose (74 - 106 mg/dL) 136 H POC Glucose (74 - 106 MG/DL) 97 Calcium (8.4 - 10.2 mg/dL) 8.2 L Laboratory Tests 07/17 0216 Hematology WBC (5.0 - 12.0 x10 3/uL) 8.6 RBC (4.70 - 6.10 x10 6/uL) 3.35 L Hgb (14.0 - 18.0 g/dL) 9.4 L Hct (37.0 - 49.0 %) 30.9 L MCV (80 - 94 fL) 92 MCH (27 - 31 pg) 28.1 MCHC (33 - 37 g/dL) 30.4 L RDW (11.5 - 15.5 %) 15.9 H Plt Count (130 - 400 x10 3/uL) 278 MPV (9.4 - 16.4 fL) 11.0 Neut % (Auto) (43 - 65 %) 90.8 H Lymph % (Auto) (20.5 - 45.5 %) 6.1 L Citrus % (Auto) (5.5 - 11.7 %) 1.6 L Eos % (Auto) (0.9 - 2.9 %) 0.2 L Baso % (Auto) (0.2 - 1.0 %) 0.6 Neut # (Auto) (2.2 - 4.8 x10 3/uL) 7.83 H Lymph # (Auto) (1.3 - 2.9 x10 3/uL) 0.53 L Citrus # (Auto) (0.3 - 0.8 x10 3/uL) 0.14 L Eos # (Auto) (0.0 - 0.2 x10 3/uL) 0.02 Baso # (Auto) (0.0 - 0.1 x10 3/uL) 0.05 Immature Gran % (0.0 - 2.0 %) 0.7 Nucleated RBC % (0 - 1.0 %) 0.0 Diagnosis, Assessment Plan Free Text A P: JENNIFER hypotension AAA lactic acidosis severe metabolic acidosis- resolved Metabolic alkalosis - resolved follwo up am labs hd as needed Urine output is improving as well-we will monito r for renal recovery at 205 RPT #:[id number] END OF REPORT 2020-07-17 20:28:00-00:00 [facility] Vascular Surgery Progress Note REPORT#:[id number] REPORT STATUS: Signed DATE:07/17/20 TIME: 2027 PATIENT: JORGE GOINS UNIT #: [id number] ROOM/BED: [address] : [birth year] AGE: 34 SEX: M ATTEND: Luis M Olmedo MD ADM AUTHOR: Kleber Newby MD * ALL edits or amendments must be made on the [employer]/computer document * Subjective Chief Complaint: Remains trached but is more awake HPI Patient now responding to so me commands however is difficult to direct. Patient able to with the bilateral upper extremi ties to command. Review of systems not obtainable due to patient condition. Objective General VS/I O Last Documented: Result Date Time Pulse Ox 100 07/17 1929 B/P 159/78 07/17 1929 B/P Mean 111 07/17 1929 Pulse 61 07/17 1929 Resp 18 07/17 1929 Temp 98.1 07/17 1926 FiO2 28 07/17 0800 O2 Delivery Tracheostomy collar 07/17 0800 O2 Flow Rate 5 07/17 0800 24 hour I O ending at 0700: 07/17 0700 01/21 1900 Intake Total 1106.00 1978.00 Output Total 350 2300 Balance 756.00 -322.00 Intake, Free 300 250 Water Intake, IV 806.00 1528.00 Intake, Tube 200 Feeding Output, 1000 Hemodialysis Output, Stool 100 700 Output, Urine 250 600 Patient 88.6 kg Weight Weight Bed scale Measurement Method PATIENT WEIGHT: Weight (lb): 195 Weight (oz): 5.27 Weight (kg): 88.600 General appearance: awake HEENT: anicteric Neck: trach Cardiovascular: regular rate Respiratory: symmetric expansion Abdomen: soft Extremities: palpable radial and dorsalis pedis pulses bilaterally 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, moving bilateral hands to comm and Skin: no flank or back ecchymosis Psychiatry: unable to evaluate Current Medications Medications: Active Meds + DC'd Last 24 Hrs Diphenhydramine HCl 25 MG ONCE ONE IV (DC) Heparin Sodium (Porcine) 2,000 UNIT DIALYSIS-DOS E BEFORE IV (CKD) Nifedipine 20 MG Q6HR FEED-TUBE Methylprednisolone Sodium Succinate 40 MG Q12HR IV Heparin Sodium (Porcine) 5,000 UNIT DIALYSIS-DOS E AFTER MISC Sodium Chloride 1,000 ML ASDIR PRN IV Linezolid 600 MG Q12HR FEED-TUBE Clonidine HCl 0.3 MG Q7D TRANSDERM (CKD) Nicardipine HCl 200 ML TITRATE IV Labetalol HCl 10 MG Q6H PRN PRN IV Acetaminophen 650 MG Q4H PRN PRN FEED-TUBE Isosorbide Mononitrate 30 MG BID FEED-TUBE Potassium Chloride 100 ML ASDIR PRN IV Potassium Bicarbonate/Citric Acid 20 MEQ ASDIR P O (CKD) Potassium Chloride 100 ML ASDIR PRN IV Hydralazine HCl 100 MG Q8HR PO Labetalol HCl 400 MG Q8HR PO Magnesium 100 ML ASDIR PRN IV Magnesium Sulfate 50 ML ASDIR PRN IV Magnesium Sulfate 100 ML ASDIR PRN IV Aspirin 81 MG DAILY FEED-TUBE Atorvastatin Calcium 40 MG DAILY FEED-TUBE Albuterol/Ipratropium 3 ML RTQ6H INH Dextrose/Water 25 ML ASDIR PRN IV Glucagon 1 MG ASDIR PRN IM Insulin Human Lispro LOW DOSE SCALE ASDIR SUBQ Sterile Water 1 ML ASDIR PRN IM Famotidine 20 MG DAILY PO Heparin Sodium (Porcine) 5,000 UNIT Q12HR SUBQ Diagnosis, Assessment Plan Free Text A P: 34 year old male with complicated type B dissection in need of extension TEVAR when stable Keep BP less than 120mmhg with heart rate goal o f 60 bpm Extubate when feasible: Patient has now been tra ched, wean from vent as tolerated Will need further TEVAR when stable Vascular surgery will continue to follow closely . Patient now with positive blood cultures . Recommend broad-spectrum antibiotics and ID consultation for further recommendations. Electronically Signed by Kleber Newby MD on 06/27 08/16 at 203 RPT #:[id number] END OF REPORT 2020-07-17 20:17:00-00:00 [facility] REPORT#:[id number] REPORT STATUS: Signed DATE:07/17/20 TIME: 2017 PATIENT: JORGE GOINS UNIT #: [id number] ROOM/BED: [address] : [birth year] AGE: 34 SEX: M ATTEND: Luis M Olmedo MD ADM AUTHOR: Vic Amaya MD * ALL edits or amendments must be made on the [employer] document * Clinical Note Note: Had small leak around the tube Gastrographin confirmed placement Resume feeding Make bumper snug around stoma Electronically Signed by Vic Amaya MD on 07/17 at 2019 RPT #:[id number] END OF REPORT 2020-07-17 15:06:00-00:00 [facility] Infectious Dis. Progress Note REPORT#:[id number] REPORT STATUS: Signed DATE:07/17/20 TIME: 150 PATIENT: JORGE GOINS UNIT #: [id number] ROOM/BED: [address] : [birth year] AGE: 34 SEX: M ATTEND: Luis M Olmedo MD ADM AUTHOR: Sofie Freed DPM R3 * ALL edits or amendments must be made on the [employer] document * Subjective Chief Complaint: 07-07-20 INTUBATED UNRESPONSIVE BACTERMIA CVC WAS TAKEN OUT 07-08-2019 BREAHTING FAST UNRESPONSIVE NO FEVER ON THE VENT 07-09-2019 COMFRTABEL TODAY ON THE VENT SEDATED FEVER RENAL FUNCTION NOTED 07-10-2020 MORE AWAKE RESPONDS TO COMMNANDS RENAL FUNCTION NOTED: MAKING 160 M OF URINE SITLL ON THE VENT 07-13-20 no new changes 07-14-20 no overnight events, no fever 07-15-20 HD FOR TODAY 07-16-20 POSS 2ND ROUND OF HD TODAY 07-17-20 NO OVERNIGHT EVENTS Objective General VS/I O: Last Documented: Result Date Time Pulse Ox 100 07/17 0800 FiO2 28 07/17 0800 O2 Delivery Tracheostomy collar 07/17 0800 O2 Flow Rate 5 07/17 0800 Temp 36.4 07/17 0730 B/P 127/65 07/17 0601 B/P Mean 87 07/17 0601 Pulse 66 07/17 0601 Resp 33 07/17 0601 Vital Signs Date Temp Pulse Resp B/P B/P Mean Pulse Ox FiO2 07/16-07/17 36.4-37.4 61-77 0-35 127-152/59-79 86-105 92-100 28-35 24 hour I O ending at 0700: 07/17 0700 07/16 1900 Intake Total 1106.00 1978.00 Output Total 350 2300 Balance 756.00 -322.00 Intake, Free 300 250 Water Intake, IV 806.00 1528.00 Intake, Tube 200 Feeding Output, 1000 Hemodialysis Output, Stool 100 700 Output, Urine 250 600 Patient 88.6 kg Weight Weight Bed scale Measurement Method PATIENT WEIGHT: Weight (lb): 195 Weight (oz): 5.27 Weight (kg): 88.600 Medications: Active Meds + DC'd Last 24 Hrs Diphenhydramine HCl 25 MG ONCE ONE IV (DC) Heparin Sodium (Porcine) 2,000 UNIT DIALYSIS-DOS E BEFORE IV (CKD) Nifedipine 20 MG Q6HR FEED-TUBE Methylprednisolone Sodium Succinate 40 MG Q12HR IV Heparin Sodium (Porcine) 5,000 UNIT DIALYSIS-DO SE AFTER MISC Sodium Chloride 1,000 ML ASDIR PRN IV Linezolid 600 MG Q12HR FEED-TUBE Clonidine HCl 0.3 MG Q7D TRANSDERM (CKD) Nicardipine HCl 200 ML TITRATE IV Labetalol HCl 10 MG Q6H PRN PRN IV Acetaminophen 650 MG Q4H PRN PRN FEED-TUBE Isosorbide Mononitrate 30 MG BID FEED-TUBE Potassium Chloride 100 ML ASDIR PRN IV Potassium Bicarbonate/Citric Acid 20 MEQ ASDIR P O (CKD) Potassium Chloride 100 ML ASDIR PRN IV Hydralazine HCl 100 MG Q8HR PO Labetalol HCl 400 MG Q8HR PO Magnesium 100 ML ASDIR PRN IV Magnesium Sulfate 50 ML ASDIR PRN IV Magnesium Sulfate 100 ML ASDIR PRN IV Aspirin 81 MG DAILY FEED-TUBE Atorvastatin Calcium 40 MG DAILY FEED-TUBE Albuterol/Ipratropium 3 ML RTQ6H INH Dextrose/Water 25 ML ASDIR PRN IV Glucagon 1 MG ASDIR PRN IM Insulin Human Lispro LOW DOSE SCALE ASDIR SUBQ Sterile Water 1 ML ASDIR PRN IM Famotidine 20 MG DAILY PO Heparin Sodium (Porcine) 5,000 UNIT Q12HR SUBQ Physical Exam ENT: TRACH WITH A LOT OF MUCOID SECREIONS Cardiovascular: tachycardia Respiratory: crackles Abdomen: non-tender, soft, no distention, no gua rding, no rebound Genitourinary: zuñiga Skin: dry Diagnosis, Assessment Plan Free Text A P: 07-16-2020 BACTERMIA : WILL FINISH THE JOB WITH LINEZOLID. ON STERIDS FOR POSSIBLE ISN 07-17-20 BACTEREMIA CONTINUE LINEZOLID Electronically Signed by Sofie Freed DPM R3 on at 1507 RPT #:[id number] END OF REPORT 2020-07-17 15:06:00-00:[address] [facility] ([facility]) Infectious Dis. Progress Note REPORT#:[id number] REPORT STATUS: Signed DATE:07/17/20 TIME: 150 PATIENT: JORGE GOINS UNIT #: [id number] ROOM/BED: [address] : [birth year] AGE: 34 SEX: M ATTEND: Luis M Olmedo MD ADM AUTHOR: Sofie Freed DPM R3 * ALL edits or amendments must be made on the [employer]computer document * Sofie Freed 07/17/20 1506: Subjective Chief Complaint: 07-07-20 INTUBATED UNRESPONSIVE BACTERMIA CVC WAS TAKEN OUT 1-13-2020 BREAHTING FAST UNRESPONSIVE NO FEVER ON THE VENT 07-09-2019 COMFRTABEL TODAY ON THE VENT SEDATED FEVER RENAL FUNCTION NOTED 07-10-2020 MORE AWAKE RESPONDS TO COMMNANDS RENAL FUNCTION NOTED: MAKING 160 M OF URINE SITLL ON THE VENT 07-13-20 no new changes 07-14-20 no overnight events, no fever 07-15-20 HD FOR TODAY 07-16-20 POSS 2ND ROUND OF HD TODAY 07-17-20 NO OVERNIGHT EVENTS Objective General VS/I O: Last Documented: Result Date Time Pulse Ox 100 07/17 0800 FiO2 28 07/17 0800 O2 Delivery Tracheostomy collar 07/17 0800 O2 Flow Rate 5 07/17 0800 Temp 36.4 07/17 0730 B/P 127/65 07/17 0601 B/P Mean 87 07/17 0601 Pulse 66 07/17 0601 Resp 33 07/17 0601 Vital Signs Date Temp Pulse Resp B/P B/P Mean Pulse Ox FiO2 07/16-07/17 36.4-37.4 61-77 0-35 127-152/59-79 86-105 92-100 28-35 24 hour I O ending at 0700: 07/17 0700 07/16 1900 Intake Total 1106.00 1978.00 Output Total 350 2300 Balance 756.00 -322.00 Intake, Free 300 250 Water Intake, IV 806.00 1528.00 Intake, Tube 200 Feeding Output, 1000 Hemodialysis Output, Stool 100 700 Output, Urine 250 600 Patient 88.6 kg Weight Weight Bed scale Measurement Method PATIENT WEIGHT: Weight (lb): 195 Weight (oz): 5.27 Weight (kg): 88.600 Medications: Active Meds + DC'd Last 24 Hrs Diphenhydramine HCl 25 MG ONCE ONE IV (DC) Heparin Sodium (Porcine) 2,000 UNIT DIALYSIS-DOS E BEFORE IV (CKD) Nifedipine 20 MG Q6HR FEED-TUBE Methylprednisolone Sodium Succinate 40 MG Q12HR IV Heparin Sodium (Porcine) 5,000 UNIT DIALYSIS-DOS E AFTER MISC Sodium Chloride 1,000 ML ASDIR PRN IV Linezolid 600 MG Q12HR FEED-TUBE Clonidine HCl 0.3 MG Q7D TRANSDERM (CKD) Nicardipine HCl 200 ML TITRATE IV Labetalol HCl 10 MG Q6H PRN PRN IV Acetaminophen 650 MG Q4H PRN PRN FEED-TUBE Isosorbide Mononitrate 30 MG BID FEED-TUBE Potassium Chloride 100 ML ASDIR PRN IV Potassium Bicarbonate/Citric Acid 20 MEQ ASDIR P O (CKD) Potassium Chloride 100 ML ASDIR PRN IV Hydralazine HCl 100 MG Q8HR PO Labetalol HCl 400 MG Q8HR PO Magnesium 100 ML ASDIR PRN IV Magnesium Sulfate 50 ML ASDIR PRN IV Magnesium Sulfate 100 ML ASDIR PRN IV Aspirin 81 MG DAILY FEED-TUBE Atorvastatin Calcium 40 MG DAILY FEED-TUBE Albuterol/Ipratropium 3 ML RTQ6H INH Dextrose/Water 25 ML ASDIR PRN IV Glucagon 1 MG ASDIR PRN IM Insulin Human Lispro LOW DOSE SCALE ASDIR SUBQ Sterile Water 1 ML ASDIR PRN IM Famotidine 20 MG DAILY PO Heparin Sodium (Porcine) 5,000 UNIT Q12HR SUBQ Physical Exam ENT: TRACH WITH A LOT OF MUCOID SECREIONS Cardiovascular: tachycardia Respiratory: crackles Abdomen: non-tender, soft, no distention, no gua rding, no rebound Genitourinary: zuñiga Skin: dry Diagnosis, Assessment Plan Free Text A P: 07-16-2020 BACTERMIA : WILL FINISH THE JOB WITH LINEZOLID. ON STERIDS FOR POSSIBLE ISN 07-17-20 BACTEREMIA CONTINUE LINEZOLID Faby Blanchard 07/17/20 1707: Attestations Physician Attestation Agree w/findings plan: Agree with the findings and plan as documented b y [insert LAISHA name]; * my personal evaluation is [ ] ON LINEZOLID TO FINIEH HIS A BX FOR ENTEROCOCCAL BACTERMIA ( TO SAVE HIS KIDNEYS FROM ANY FURTHER DAMAGE ) ON STEROIDS FOR ? ISN Electronically Signed by Sofie Freed DPM R3 on at 1507 Electronically Signed by Faby Blanchard MD on 0 07/17/20 at 1703 RPT #:[id number] END OF REPORT 2020-07-17 09:57:00-00:00 [facility]) Neurology Progress Note REPORT#:[id number] REPORT STATUS: Signed DATE:07/17/20 TIME: 956 PATIENT: JORGE GOINS UNIT #: [id number] ROOM/BED: [address] : [birth year] AGE: 34 SEX: M ATTEND: Luis M Olmedo MD ADM AUTHOR: Sinai Rogers DPM R2 * ALL edits or amendments must be made on the [employer]computer document * Subjective HPI: No acute overnight events. P atient more awake and able to follow some commands. Producing more urine Review of Systems Unable to obtain due to: medical condition Objective General VS: Last Documented: Result Date Time Pulse Ox 100 07/17 0800 FiO2 28 07/17 0800 O2 Delivery Tracheostomy collar 07/17 0800 O2 Flow Rate 5 07/17 0800 B/P 127/65 07/17 0601 B/P Mean 87 07/17 06 Pulse 66 07/17 0601 Resp 33 07/17 06 Temp 36.7 07/17 0350 PATIENT WEIGHT: Weight (lb): 195 Weight (oz): 5.27 Weight (kg): 88.600 Physical Exam Head/Eyes: atraumatic, normocephalic ENT: moist mucosal membranes Neck: non-tender, no masses or swelling Cardiovascular: irregular rate and rhythm, murmu r Respiratory: decreased breath sounds, intubated/ mech vent Abdomen: non-tender, normal bowel sounds, soft Results Findings/Data: Laboratory Tests 07/17 215 Chemistry Sodium (137 - 145 mmol/L) 146 H Potassium (3.4 - 5.0 mmol/L) 3.1 L Chloride (98 - 107 mmol/L) 110 H Carbon Dioxide (22 - 30 mmol/L) 22 BUN (9 - 20 mg/dL) 51 H Creatinine (0.7 - 1.3 mg/dL) 4.8 H Glomerular Filtr Rate (>60) 18 L Glucose (74 - 106 mg/dL) 136 H Calcium (8.4 - 10.2 mg/dL) 8.2 L Laboratory Tests 07/17 215 Hematology WBC (5.0 - 12.0 x10 3/uL) 8.6 RBC (4.70 - 6.10 x10 6/uL) 3.35 L Hgb (14.0 - 18.0 g/dL) 9.4 L Hct (37.0 - 49.0 %) 30.9 L MCV (80 - 94 fL) 92 MCH (27 - 31 pg) 28.1 MCHC (33 - 37 g/dL) 30.4 L RDW (11.5 - 15.5 %) 15.9 H Plt Count (130 - 400 x10 3/uL) 278 MPV (9.4 - 16.4 fL) 11.0 Neut % (Auto) (43 - 65 %) 90.8 H Lymph % (Auto) (20.5 - 45.5 %) 6.1 L Citrus % (Auto) (5.5 - 11.7 %) 1.6 L Eos % (Auto) (0.9 - 2.9 %) 0.2 L Baso % (Auto) (0.2 - 1.0 %) 0.6 Neut # (Auto) (2.2 - 4.8 x10 3/uL) 7.83 H Lymph # (Auto) (1.3 - 2.9 x10 3/uL) 0.53 L Citrus # (Auto) (0.3 - 0.8 x10 3/uL) 0.14 L Eos # (Auto) (0.0 - 0.2 x10 3/uL) 0.02 Baso # (Auto) (0.0 - 0.1 x10 3/uL) 0.05 Immature Gran % (0.0 - 2.0 %) 0.7 Nucleated RBC % (0 - 1.0 %) 0.0 Radiology Data: Recent Impressions: RADIOLOGY - XR ABDOMEN 1 V 07/16 2134 Report Impression - Status: SIGNED Entered: 07/16/20205 IMPRESSION: Contrasted within the proximal small bowel sugge sting appropriate placement of PEG tube. Impression By: Rios - Kim Morrow MD Diagnosis, Assessment Plan Free Text A P: Assessment 1. Acute encephalopathy - multifactorial - metab olic/hypertensive emergency/ acute stroke 2. Acute ischemic strokes, suspect embolic sourc e, + PFO, b/l lower extremity dopplers negative 3. s/p PEA arrest 06/11/20 4. hypertensive emergency - still requiring akua rdipine drip and antihypertensives being adjusted 5. acute respiratory failure requiring intubatio n 6. complicated type b aortic dissection, in need of extension TEVAR when stable per vascular surgery Plan Severe critical illness myopathy more awake today. Able to track and follow some commands S/p trach and PEG blood pressure control - on cardene drip continue medical management antibiotics per ID recommendations hemodialysis catheter was placed to right procurement internship al jugular vein (07/14) HD per nephrology asa and statin consider PFO closure in future when medically st abilized Will d/w attending Dr. Chino Electronically Signed by Sinai Rogers DPM R2 on 0 07/17/20 at 1009 RPT #:[id number] END OF REPORT 2020-07-17 09:57:00-00:[address] [facility] ([facility]) Neurology Progress Note REPORT#:[id number] REPORT STATUS: Signed DATE:07/17/20 TIME: 956 PATIENT: JORGE GOINS UNIT #: [id number] ROOM/BED: [address] : [birth year] AGE: 34 SEX: M ATTEND: Luis M Olmedo MD ADM AUTHOR: Sinai Rogers DPM R2 * ALL edits or amendments must be made on the [employer]computer document * Sinai Rogers 07/17/20 0957: Subjective HPI: No acute overnight events. P atient more awake and able to follow some commands. Producing more urine Review of Systems Unable to obtain due to: medical condition Objective General VS: Last Documented: Result Date Time Pulse Ox 100 07/17 0800 FiO2 28 07/17 0800 O2 Delivery Tracheostomy collar 07/17 0800 O2 Flow Rate 5 07/17 0800 B/P 127/65 07/17 0601 B/P Mean 87 07/17 0601 Pulse 66 07/17 0601 Resp 33 07/17 0601 Temp 36.7 07/17 0350 PATIENT WEIGHT: Weight (lb): 195 Weight (oz): 5.27 Weight (kg): 88.600 Physical Exam Head/Eyes: atraumatic, normocephalic ENT: moist mucosal membranes Neck: non-tender, no masses or swelling Cardiovascular: irregular rate and rhythm, murmu r Respiratory: decreased breath sounds, intubated/ mech vent Abdomen: non-tender, normal bowel sounds, soft Results Findings/Data: Laboratory Tests 07/17 215 Chemistry Sodium (137 - 145 mmol/L) 146 H Potassium (3.4 - 5.0 mmol/L) 3.1 L Chloride (98 - 107 mmol/L) 110 H Carbon Dioxide (22 - 30 mmol/L) 22 BUN (9 - 20 mg/dL) 51 H Creatinine (0.7 - 1.3 mg/dL) 4.8 H Glomerular Filtr Rate (>60) 18 L Glucose (74 - 106 mg/dL) 136 H Calcium (8.4 - 10.2 mg/dL) 8.2 L Laboratory Tests 07/17 215 Hematology WBC (5.0 - 12.0 x10 3/uL) 8.6 RBC (4.70 - 6.10 x10 6/uL) 3.35 L Hgb (14.0 - 18.0 g/dL) 9.4 L Hct (37.0 - 49.0 %) 30.9 L MCV (80 - 94 fL) 92 MCH (27 - 31 pg) 28.1 MCHC (33 - 37 g/dL) 30.4 L RDW (11.5 - 15.5 %) 15.9 H Plt Count (130 - 400 x10 3/uL) 278 MPV (9.4 - 16.4 fL) 11.0 Neut % (Auto) (43 - 65 %) 90.8 H Lymph % (Auto) (20.5 - 45.5 %) 6.1 L Citrus % (Auto) (5.5 - 11.7 %) 1.6 L Eos % (Auto) (0.9 - 2.9 %) 0.2 L Baso % (Auto) (0.2 - 1.0 %) 0.6 Neut # (Auto) (2.2 - 4.8 x10 3/uL) 7.83 H Lymph # (Auto) (1.3 - 2.9 x10 3/uL) 0.53 L Citrus # (Auto) (0.3 - 0.8 x10 3/uL) 0.14 L Eos # (Auto) (0.0 - 0.2 x10 3/uL) 0.02 Baso # (Auto) (0.0 - 0.1 x10 3/uL) 0.05 Immature Gran % (0.0 - 2.0 %) 0.7 Nucleated RBC % (0 - 1.0 %) 0.0 Radiology Data: Recent Impressions: RADIOLOGY - XR ABDOMEN 1 V 07/16 2134 Report Impression - Status: SIGNED Entered: 07/16/20202235 IMPRESSION: Contrasted within the proximal small bowel sugge sting appropriate placement of PEG tube. Impression By: Rios - Kim Morrow MD Diagnosis, Assessment Plan Free Text A P: Assessment 1. Acute encephalopathy - multifactorial - metab olic/hypertensive emergency/ acute stroke 2. Acute ischemic strokes, suspect embolic sourc e, + PFO, b/l lower extremity dopplers negative 3. s/p PEA arrest 06/11/20 4. hypertensive emergency - still requiring akua rdipine drip and antihypertensives being adjusted 5. acute respiratory failure requiring intubatio n 6. complicated type b aortic dissection, in need of extension TEVAR when stable per vascular surgery Plan Severe critical illness myopathy more awake today. Able to track and follow some commands S/p trach and PEG blood pressure control - on cardene drip continue medical management antibiotics per ID recommendations hemodialysis catheter was placed to right procurement internship al jugular vein (07/14) HD per nephrology asa and statin consider PFO closure in future when medically st abilized Will d/w attending William Agarwal 07/17/20 1512: Diagnosis, Assessment Plan Free Text A P: agree with above note/ plan by resident Electronically Signed by Sinai Rogers DPM R2 on 0 07/17/20 at 1009 at 1512 RPT #:[id number] END OF REPORT 2020-07-17 06:09:00-00:[address] [facility] ([facility]) Critical Care Progress Note REPORT#:[id number] REPORT STATUS: Signed DATE:07/17/20 TIME: 608 PATIENT: JORGE GOINS UNIT #: [id number] ROOM/BED: [place] [address] : 86 AGE: 34 SEX: M ATTEND: Luis M Olmedo MD ADM AUTHOR: Papi England MD * ALL edits or amendments must be made on the [employer] document * Subjective Chief Complaint: on TC mental status unchanged Comments: CC progress note 07.16.2020 Objective General VS/I O Last Documented: Result Date Time Pulse Ox 100 07/17 600 B/P 127/65 07/17 600 B/P Mean 87 07/17 600 Pulse 66 07/17 600 Resp 33 07/17 600 Temp 36.7 07/17 0350 FiO2 35 07/17 217 O2 Delivery Tracheostomy collar 07/17 217 O2 Flow Rate 8 07/17 217 24 hour I O ending at 0700: 07/17 0700 07/16 1900 Intake Total 1106.00 1978.00 Output Total 350 2300 Balance 756.00 -322.00 Intake, Free 300 250 Water Intake, IV 806.00 1528.00 Intake, Tube 200 Feeding Output, 1000 Hemodialysis Output, Stool 100 700 Output, Urine 250 600 Patient 88.6 kg Weight Weight Bed scale Measurement Method PATIENT WEIGHT: Weight (lb): 195 Weight (oz): 5.27 Weight (kg): 88.600 Medications: Active Meds + DC'd Last 24 Hrs Diphenhydramine HCl 25 MG ONCE ONE IV (DC) Heparin Sodium (Porcine) 2,000 UNIT DIALYSIS-DOS E BEFORE IV (CKD) Nifedipine 10 MG Q6HR FEED-TUBE (DC) Nifedipine 20 MG Q6HR FEED-TUBE Methylprednisolone Sodium Succinate 40 MG Q12HR IV Heparin Sodium (Porcine) 5,000 UNIT DIALYSIS-DOS E AFTER MISC Sodium Chloride 1,000 ML ASDIR PRN IV Sodium Bicarbonate 75 MEQ SEE RATE IV (DC) Dextrose/Water 925 ML Linezolid 600 MG Q12HR FEED-TUBE Clonidine HCl 0.3 MG Q7D TRANSDERM (CKD) Nicardipine HCl 200 ML TITRATE IV Labetalol HCl 10 MG Q6H PRN PRN IV Acetaminophen 650 MG Q4H PRN PRN FEED-TUBE Isosorbide Mononitrate 30 MG BID FEED-TUBE Potassium Chloride 100 ML ASDIR PRN IV Potassium Bicarbonate/Citric Acid 20 MEQ ASDIR P O (CKD) Potassium Chloride 100 ML ASDIR PRN IV Hydralazine HCl 100 MG Q8HR PO Labetalol HCl 400 MG Q8HR PO Magnesium 100 ML ASDIR PRN IV Magnesium Sulfate 50 ML ASDIR PRN IV Magnesium Sulfate 100 ML ASDIR PRN IV Amlodipine Besylate 5 MG Q12HR PO (DC) Aspirin 81 MG DAILY FEED-TUBE Atorvastatin Calcium 40 MG DAILY FEED-TUBE Albuterol/Ipratropium 3 ML RTQ6H INH Dextrose/Water 25 ML ASDIR PRN IV Glucagon 1 MG ASDIR PRN IM Insulin Human Lispro LOW DOSE SCALE ASDIR SUBQ Sterile Water 1 ML ASDIR PRN IM Famotidine 20 MG DAILY PO Heparin Sodium (Porcine) 5,000 UNIT Q12HR SUBQ Physical Exam General appearance: altered mental status Head/Eyes: atraumatic, normocephalic Cardiovascular: normal heart sounds, normal S1 S 2, normal rate and rhythm Respiratory/Chest: aerating well, clear to auscu ltation Abdomen: soft, non-tender, normal bowel sounds, no distention Extremities: no edema Neuro/RADIOTELEGRAPHIST: disoriented Results Findings/Data: Laboratory Tests 07/17/20215: [Embedded Image Not Available] Laboratory Tests 07/17 215 Chemistry Sodium (137 - 145 mmol/L) 146 H Potassium (3.4 - 5.0 mmol/L) 3.1 L Chloride (98 - 107 mmol/L) 110 H Carbon Dioxide (22 - 30 mmol/L) 22 BUN (9 - 20 mg/dL) 51 H Creatinine (0.7 - 1.3 mg/dL) 4.8 H Glomerular Filtr Rate (>60) 18 L Glucose (74 - 106 mg/dL) 136 H Calcium (8.4 - 10.2 mg/dL) 8.2 L Laboratory Tests 07/17 215 Hematology WBC (5.0 - 12.0 x10 3/uL) 8.6 RBC (4.70 - 6.10 x10 6/uL) 3.35 L Hgb (14.0 - 18.0 g/dL) 9.4 L Hct (37.0 - 49.0 %) 30.9 L MCV (80 - 94 fL) 92 MCH (27 - 31 pg) 28.1 MCHC (33 - 37 g/dL) 30.4 L RDW (11.5 - 15.5 %) 15.9 H Plt Count (130 - 400 x10 3/uL) 278 MPV (9.4 - 16.4 fL) 11.0 Neut % (Auto) (43 - 65 %) 90.8 H Lymph % (Auto) (20.5 - 45.5 %) 6.1 L Citrus % (Auto) (5.5 - 11.7 %) 1.6 L Eos % (Auto) (0.9 - 2.9 %) 0.2 L Baso % (Auto) (0.2 - 1.0 %) 0.6 Neut # (Auto) (2.2 - 4.8 x10 3/uL) 7.83 H Lymph # (Auto) (1.3 - 2.9 x10 3/uL) 0.53 L Citrus # (Auto) (0.3 - 0.8 x10 3/uL) 0.14 L Eos # (Auto) (0.0 - 0.2 x10 3/uL) 0.02 Baso # (Auto) (0.0 - 0.1 x10 3/uL) 0.05 Immature Gran % (0.0 - 2.0 %) 0.7 Nucleated RBC % (0 - 1.0 %) 0.0 Radiology data Recent Impressions: RADIOLOGY - XR ABDOMEN 1 V 07/16 2134 Report Impression - Status: SIGNED Entered: 07/16/20202235 IMPRESSION: Contrasted within the proximal small bowel sugge sting appropriate placement of PEG tube. Impression By: 16 - Kim Morrow MD Diagnosis, Assessment Plan Free text A P: 34 year old male with history of aortic dissecti on s/p EVAR came in for hypertensive urgency A/P: Neuro -MRI multiple ischemic cva Neuro status slowly improving More awake. Starting to track and follow command s intermittently #AMS as above Pulm -s/p trach On TC CV #s/p Cardiac Arrest - PEA hypotensive. ROSC achieved after 9 minutes - likely from cardiogenic shock EF 30-34% - Aortic dissection ruled out from CTA chest , a bdomen and pelvis #hx of EVAR for aortic dissection and h/o endole ak in the past - per vascular surgery -uncontrolled hypertension resume cardne keep systoli cBP around 140 # Fever abx GI on tube feeidng Renal Acute renal failure on hd gi ppx: pepcid dvt ppx: heparin Diet: tube feeds condition critical prognosis guarded at 0611 RPT #:[id number] END OF REPORT 2020-07-16 14:04:00-00:[address] [facility] ([facility]) Nephrology Progress Note REPORT#:[id number] REPORT STATUS: Signed DATE:07/16/20 TIME: 1404 PATIENT: JORGE GOINS UNIT #: [id number] ROOM/BED: [address] : [birth year] AGE: 34 SEX: M ATTEND: Luis M Olmedo MD ADM AUTHOR: Jojo York MD * ALL edits or amendments must be made on the [employer] document * Subjective Comments: Seen at hemodialysis Tolerating well Has been making more urine Objective General VS/I O: Vital Signs: Date Time Temp Pulse Resp B/P B/P Pulse O2 O2 Fl ow FiO2 Mean Ox Delivery Rate 07/16 1328 98.2 62 23 151/74 100 5 Tracheostomy collar 07/16 1216 98.5 07/16 1008 98.7 75 13 156/72 100 5.0 Tracheostomy collar 07/16 0742 99.1 07/16 0742 6 28 Tracheostomy collar 07/16 0631 67 31 99 07/16 0630 67 29 159/72 104 99 07/16 0615 67 26 159/73 105 100 07/16 0600 69 28 155/71 104 100 07/16 0545 65 25 153/70 100 99 07/16 0530 65 23 156/71 102 100 07/16 0515 66 30 155/68 101 100 07/16 0500 65 32 153/69 101 99 07/16 0445 72 26 159/72 104 99 07/16 0430 70 14 156/74 107 99 07/16 0415 77 26 153/70 100 98 07/16 0400 98.2 07/16 0400 64 3 151/68 98 100 07/16 0345 66 2 148/68 98 100 07/16 0330 74 26 149/71 101 99 07/16 0315 84 28 142/69 98 99 07/16 0300 77 15 144/71 99 100 07/16 0245 83 25 143/69 99 07/16 0230 65 18 142/62 93 100 01/21 0215 66 25 143/65 94 100 / 0200 66 13 143/65 94 100 / 0145 67 15 142/63 93 100 / 0130 72 26 149/67 97 100 07/16 0115 71 28 152/66 95 95 / 0102 73 28 95 / 0100 73 28 150/66 95 95 / 0045 72 31 145/65 94 95 / 0030 75 26 145/64 95 100 07/16 0019 81 29 143/70 97 / 0015 84 32 137/67 94 100 07/16 0000 99.0 07/16 0000 83 28 146/69 98 97 07/15 2345 90 26 147/69 99 91 07/15 2336 152/70 100 07/15 2330 67 21 148/62 92 100 07/15 2315 67 26 143/65 93 100 07/15 2300 68 26 148/65 94 100 07/15 2245 69 27 144/58 91 100 07/15 2230 69 23 145/65 93 100 07/15 2215 69 24 145/65 93 100 07/15 2200 75 18 156/63 98 100 07/15 2145 69 24 149/65 94 100 07/15 2130 68 28 148/65 94 100 07/15 2115 68 29 157/67 97 100 07/15 2100 68 30 156/59 97 100 07/15 2045 73 31 158/70 100 100 07/15 2030 73 30 159/72 103 100 07/15 2014 68 30 156/70 101 100 07/15 1999 99.2 07/15 1999 71 39 149/65 94 100 07/15 1945 75 29 158/58 99 07/15 1930 79 30 146/65 93 07/15 1923 79 32 147/63 91 07/15 1908 81 171/74 106 100 07/15 1900 Tracheostomy collar 07/15 1900 79 168/74 107 92 07/15 1840 74 32 82 07/15 1830 75 35 174/76 109 80 07/15 1815 73 166/65 104 82 07/15 1800 75 164/72 104 92 07/15 1745 75 167/73 105 90 07/15 1730 81 169/74 107 85 07/15 1715 86 164/73 105 92 07/15 1700 82 169/74 107 96 07/15 1645 76 168/75 108 95 07/15 1630 79 169/77 110 78 07/15 1615 80 161/72 103 100 07/15 1600 98.6 07/15 1600 77 172/76 109 100 07/15 1545 80 168/77 111 100 07/15 1531 83 33 166/74 106 07/15 1515 77 32 168/74 106 100 07/15 1500 81 30 169/74 107 100 07/15 1445 92 40 166/74 107 94 07/15 1430 83 36 165/74 107 98 07/15 1415 85 33 161/71 102 100 24 hour I O ending at 0700: 07/16 0700 07/15 1900 Intake Total 2760.00 Output Total 1000 2200 Balance -1000 560.00 Intake, Free 60 Water Intake, 0 Hemodialysis Intake, IV 2050.00 Intake, Tube 450 Feeding Intake, Tube 200 Irrigant Output, Stool 200 1300 Output, Urine 800 900 Medications Active Meds + DC'd Last 24 Hrs Nifedipine 10 MG Q6HR FEED-TUBE (DC) Nifedipine 20 MG Q6HR FEED-TUBE Methylprednisolone Sodium Succinate 40 MG Q12HR IV Heparin Sodium (Porcine) 5,000 UNIT DIALYSIS-DOS E AFTER MISC Sodium Chloride 1,000 ML ASDIR PRN IV Sodium Bicarbonate 75 MEQ SEE RATE IV (DC) Dextrose/Water 925 ML Linezolid 600 MG Q12HR FEED-TUBE Clonidine HCl 0.3 MG Q7D TRANSDERM (CKD) Nicardipine HCl 200 ML TITRATE IV Labetalol HCl 10 MG Q6H PRN PRN IV Acetaminophen 650 MG Q4H PRN PRN FEED-TUBE Isosorbide Mononitrate 30 MG BID FEED-TUBE Potassium Chloride 100 ML ASDIR PRN IV Potassium Bicarbonate/Citric Acid 20 MEQ ASDIR P O (CKD) Potassium Chloride 100 ML ASDIR PRN IV Hydralazine HCl 100 MG Q8HR PO Labetalol HCl 400 MG Q8HR PO Magnesium 100 ML ASDIR PRN IV Magnesium Sulfate 50 ML ASDIR PRN IV Magnesium Sulfate 100 ML ASDIR PRN IV Amlodipine Besylate 5 MG Q12HR PO (DC) Aspirin 81 MG DAILY FEED-TUBE Atorvastatin Calcium 40 MG DAILY FEED-TUBE Albuterol/Ipratropium 3 ML RTQ6H INH Dextrose/Water 25 ML ASDIR PRN IV Glucagon 1 MG ASDIR PRN IM Insulin Human Lispro LOW DOSE SCALE ASDIR SUBQ Sterile Water 1 ML ASDIR PRN IM Famotidine 20 MG DAILY PO Heparin Sodium (Porcine) 5,000 UNIT Q12HR SUBQ Physical Exam General appearance: no acute distress Head/eyes: normal conjunctiva/sclera Neck: trach in place Respiratory: symmetric expansion Genitourinary: zuñiga, urine (appears pink) Extremities: pedal edema improved Musculoskeletal: normal inspection Neuro/RADIOTELEGRAPHIST: SEDATED Hemodialysis access: Type: vascath Psychiatry: unable to evaluate Results Findings/Data: Laboratory Tests 07/168 Blood Gas VBG pH (7.32 - 7.43) 7.442 H VBG pCO2 (35 - 45 mmHg) 19.6 *L VBG pO2 (80 - 108 mmHg) 56.1 L VBG HCO3 (22 - 29 mmol/L) 13.4 L VBG O2 Saturation (94 - 98 %) 91.0 L VBG Base Excess (-2 - 3 mml/L) -9.0 L Sodium (138 - 146 mmol/l) 152 H Potassium (3.5 - 4.5 mmol/L) 3.4 L Glucose (74 - 100 mg/dL) 190 H Ionized Calcium (1.15 - 1.33 MMOL/L) 0.86 L Instrument (Specimen Descript) Venous Laboratory Tests 07/16 07/15 07/15 07/15 0232 2054 1455 1448 Chemistry Sodium (137 - 145 mmol/L) 153 H 150 H Potassium (3.4 - 5.0 mmol/L) 3.4 2.8 L Chloride (98 - 107 mmol/L) 118 H 118 H Carbon Dioxide (22 - 30 mmol/L) 17 L 21 L BUN (9 - 20 mg/dL) 65 H 61 H Creatinine (0.7 - 1.3 mg/dL) 6.8 H 6.8 H Glomerular Filtr Rate (>60) 12 L 12 L Glucose (74 - 106 mg/dL) 184 H 103 POC Glucose (74 - 106 MG/DL) 134 H 107 H Calcium (8.4 - 10.2 mg/dL) 8.5 8.4 Laboratory Tests 07/162 Hematology WBC (5.0 - 12.0 x10 3/uL) 5.6 RBC (4.70 - 6.10 x10 6/uL) 3.20 L Hgb (14.0 - 18.0 g/dL) 8.8 L Hct (37.0 - 49.0 %) 29.9 L MCV (80 - 94 fL) 93 MCH (27 - 31 pg) 27.5 MCHC (33 - 37 g/dL) 29.4 L RDW (11.5 - 15.5 %) 16.7 H Plt Count (130 - 400 x10 3/uL) 279 MPV (9.4 - 16.4 fL) 10.6 Total Counted (#CELLS) 100 Seg Neutrophils % (43 - 65 %) 95 H Lymphocytes % (Manual) (20.5 - 45.5 %) 2 L Eosinophils % (Manual) (0.9 - 2.9 %) 2 Basophils % (Manual) (0.2 - 1.0 %) 2 H Platelet Estimate (ADEQUATE) ADEQUATE Plt Morphology Comment (NORMAL) NORMAL Polychromasia (NONE SEEN) 1+ H Anisocytosis (NONE SEEN) 1+ H Microcytosis (NONE SEEN) 1+ H Diagnosis, Assessment Plan Free Text A P: JENNIFER hypotension AAA lactic acidosis severe metabolic acidosis- resolved Metabolic alkalosis - resolved s/p mena-plan for hemodialysis today and brittani rrow We will stop the bicarb drip as acidosis has imp roved Urine output is improving as well-we will monito r for renal recovery Discussed this with the dialysis at 1404 RPT #:[id number] END OF REPORT 2020-07-16 13:39:00-00:00 [facility]) Cardiology Progress Note REPORT#:[id number] REPORT STATUS: Signed DATE:07/16/20 TIME: 1339 PATIENT: JORGE GOINS UNIT #: [id number] ROOM/BED: [address] : [birth year] AGE: 34 SEX: M ATTEND: Luis M Olmedo MD ADM AUTHOR: Giancarlo Phan MD * ALL edits or amendments must be made on the el ectronic/computer document * Subjective Free Text Subj Notes Free Text Subj Notes: No real acute changes with patient. He h as been recently started back on drips for blood pressure control Objective Physical Exam Head/Eyes: atraumatic, normocephalic ENT: moist mucosal membranes, normal nose Neck: non-tender, supple/no meningismus, traches otomy prsent Cardiovascular: CV assessment: regular rate and rhythm, no murm ur Respiratory: no distress, coarse breathsounds, m echanically ventialted Abdomen: soft, non-tender Upper extremity: UE assessment: normal capillary refill, normal temperature Lower extremity: LE assessment: normal capillary refill, normal temperature, no edema Musculoskeletal: normal inspection Neuro/RADIOTELEGRAPHIST: vented via trachesotomy, not followin g commands Diagnosis, Assessment Plan Free Text DxA P Notes Free Text DxA P Notes: 1. Hypertensive urgency/emergency - presented with severely elevated BP requiring 2 IV infusions, subsequently suffered PEA cardiac arrest - BP control improving - cont hydralazine 100mg Q8H, labetalol 400mg Q 8H, clonidine patch has been increased to 0.3 - n change patient's Norvasc to nifedipine for hopefully better blood pressure control 20 mg twice daily and ISMN 30mg BID -We will continue to watch blood pressure very closely. Given current renal failure somewhat inhibits th e addition of Aldactone as well as thiazides as well as CECI/ARB's. 2. Cardiac arrest - PEA in etiology, pt became hypothermic and sub sequently bradycardic 3. Type B aortic dissection s/p EVAR - has residual descending aortic dissect ion extending into iliacs. No evidence of rupture on CTA. Reviewed by vascular surgery - appreciate assitance - optimal BP Control as above 4. Acute on chronic systolic heart failure -Improved significantly 5. Shock - resolved 6. JENNIFER on CKD -On dialysis 7. Acute hypoxic respiratory failure - now has tracheostomy- per ICU team 8. Stroke: - CT head and MRI with evidence of prior CVA - TTE with possible PFO - m continue to monitor for further neurologic improvement. I believe given patient's overall c ondition would like to see significant improvement. Will follow. Please call if questions. [facility] Cardiology Electronically Signed by Giancarlo Phan MD on 06/27 07/16 at 1341 RPT #:[id number] END OF REPORT 2020-07-16 10:18:00-00:[address] [facility] ([facility]) Infectious Dis. Progress Note REPORT#:[id number] REPORT STATUS: Signed DATE:07/16/20 TIME: 1018 PATIENT: JORGE GOINS UNIT #: [id number] ROOM/BED: [address] : [birth year] AGE: 34 SEX: M ATTEND: Luis M Olmedo MD ADM AUTHOR: Sofie Freed DPM R3 * ALL edits or amendments must be made on the el [employer]/computer document * Subjective Chief Complaint: 07-07-20 INTUBATED UNRESPONSIVE BACTERMIA CVC WAS TAKEN OUT 07-08-2019 BREAHTING FAST UNRESPONSIVE NO FEVER ON THE VENT 07-09-2019 COMFRTABEL TODAY ON THE VENT SEDATED FEVER RENAL FUNCTION NOTED 07-10-2020 MORE AWAKE RESPONDS TO COMMNANDS RENAL FUNCTION NOTED: MAKING 160 M OF URINE SITLL ON THE VENT 07-13-20 no new changes 07-14-20 no overnight events, no fever 07-15-20 HD FOR TODAY 07-16-20 POSS 2ND ROUND OF HD TODAY Objective General VS/I O: Last Documented: Result Date Time Pulse Ox 100 07/16 1008 B/P 156/72 07/16 1008 O2 Delivery Tracheostomy collar 07/16 1008 O2 Flow Rate 5.0 07/16 1008 Temp 37.1 07/16 1008 Pulse 75 07/16 1008 Resp 13 07/16 1008 FiO2 28 07/16 0742 B/P Mean 104 07/16 0630 Vital Signs Date Temp Pulse Resp B/P B/P Mean Pulse Ox FiO2 07/15-07/16 36.8-37.3 64-113 2-40 137-174/58-81 91-115 75-100 28 24 hour I O ending at 0700: 07/16 0700 07/15 1900 Intake Total 2760.00 Output Total 1000 2200 Balance -1000 560.00 Intake, Free 60 Water Intake, 0 Hemodialysis Intake, IV 2050.00 Intake, Tube 450 Feeding Intake, Tube 200 Irrigant Output, Stool 200 1300 Output, Urine 800 900 PATIENT WEIGHT: Weight (lb): 198 Weight (oz): 10.18 Weight (kg): 90.100 Medications: Active Meds + DC'd Last 24 Hrs Methylprednisolone Sodium Succinate 40 MG Q12HR IV Heparin Sodium (Porcine) 5,000 UNIT DIALYSIS-DOS E AFTER MISC Sodium Chloride 1,000 ML ASDIR PRN IV Sodium Bicarbonate 75 MEQ SEE RATE IV (CKD) Dextrose/Water 925 ML Linezolid 600 MG Q12HR FEED-TUBE Clonidine HCl 0.3 MG Q7D TRANSDERM (CKD) Nicardipine HCl 200 ML TITRATE IV Labetalol HCl 10 MG Q6H PRN PRN IV Acetaminophen 650 MG Q4H PRN PRN FEED-TUBE Isosorbide Mononitrate 30 MG BID FEED-TUBE Potassium Chloride 100 ML ASDIR PRN IV Potassium Bicarbonate/Citric Acid 20 MEQ ASDIR P O (CKD) Potassium Chloride 100 ML ASDIR PRN IV Hydralazine HCl 100 MG Q8HR PO Labetalol HCl 400 MG Q8HR PO Magnesium 100 ML ASDIR PRN IV Magnesium Sulfate 50 ML ASDIR PRN IV Magnesium Sulfate 100 ML ASDIR PRN IV Amlodipine Besylate 5 MG Q12HR PO Aspirin 81 MG DAILY FEED-TUBE Atorvastatin Calcium 40 MG DAILY FEED-TUBE Albuterol/Ipratropium 3 ML RTQ6H INH Dextrose/Water 25 ML ASDIR PRN IV Glucagon 1 MG ASDIR PRN IM Insulin Human Lispro LOW DOSE SCALE ASDIR SUBQ Sterile Water 1 ML ASDIR PRN IM Famotidine 20 MG DAILY PO Heparin Sodium (Porcine) 5,000 UNIT Q12HR SUBQ Physical Exam ENT: TRACH WITH A LOT OF MUCOID SECREIONS Cardiovascular: tachycardia Respiratory: crackles Abdomen: non-tender, soft, no distention, no gua rding, no rebound Genitourinary: zuñiga Skin: dry Diagnosis, Assessment Plan Free Text A P: 07-14-2020 URINE RETNSIN>>> FOLFY BACTRERMIA : MIXED >> REEOLVED PNA: TERATED : IMRPVONG RENAL FAILURE WITH EOSINOPHYLIA ID PLAN: D/C ALL B LACTAMS, AND FINSHE THE JOB W ITH 6 MORE DAY OF LINEZOLID. OK TO USE STEROIDS BY NEPHROLOGY IF IT IS FELT T O BE ISN CAUSED BY B LACTAMS. 07-15-20 BACTEREMIA RESOLVED CONTINUE WITH LINEZOLID X6 DAYS NEPHROLOGY NOTED 07-16-20 SAME ABX ON STEROIDS Electronically Signed by Sofie Freed DPM R3 on at 1019 RPT #:[id number] END OF REPORT 2020-07-16 10:18:00-00:[address] [facility] ([facility]) Infectious Dis. Progress Note REPORT#:[id number] REPORT STATUS: Signed DATE:07/16/20 TIME: 1018 PATIENT: JORGE GOINS UNIT #: [id number] ROOM/BED: [address] : [birth year] AGE: 34 SEX: M ATTEND: Luis M Olmedo MD ADM AUTHOR: Sofie Freed DPSiva R3 * ALL edits or amendments must be made on the [employer]/computer document * Sofie Freed 07/16/20 1018: Subjective Chief Complaint: 07-07-20 INTUBATED UNRESPONSIVE BACTERMIA CVC WAS TAKEN OUT 07-08-2019 BREAHTING FAST UNRESPONSIVE NO FEVER ON THE VENT 07-09-2019 COMFRTABEL TODAY ON THE VENT SEDATED FEVER RENAL FUNCTION NOTED 07-10-2020 MORE AWAKE RESPONDS TO COMMNANDS RENAL FUNCTION NOTED: MAKING 160 M OF URINE SITLL ON THE VENT 07-13-20 no new changes 07-14-20 no overnight events, no fever 07-15-20 HD FOR TODAY 07-16-20 POSS 2ND ROUND OF HD TODAY Objective General VS/I O: Last Documented: Result Date Time Pulse Ox 100 07/16 1008 B/P 156/72 07/16 1008 O2 Delivery Tracheostomy collar 07/16 1008 O2 Flow Rate 5.0 07/16 1008 Temp 37.1 07/16 1008 Pulse 75 07/16 1008 Resp 13 07/16 1008 FiO2 28 07/16 0742 B/P Mean 104 07/16 0630 Vital Signs Date Temp Pulse Resp B/P B/P Mean Pulse Ox FiO2 07/15-07/16 36.8-37.3 64-113 2-40 137-174/58-81 91-115 75-100 28 24 hour I O ending at 0700: 07/16 0700 07/15 1900 Intake Total 2760.00 Output Total 1000 2200 Balance -1000 560.00 Intake, Free 60 Water Intake, 0 Hemodialysis Intake, IV 2050.00 Intake, Tube 450 Feeding Intake, Tube 200 Irrigant Output, Stool 200 1300 Output, Urine 800 900 PATIENT WEIGHT: Weight (lb): 198 Weight (oz): 10.18 Weight (kg): 90.100 Medications: Active Meds + DC'd Last 24 Hrs Methylprednisolone Sodium Succinate 40 MG Q12HR IV Heparin Sodium (Porcine) 5,000 UNIT DIALYSIS-DOS E AFTER MISC Sodium Chloride 1,000 ML ASDIR PRN IV Sodium Bicarbonate 75 MEQ SEE RATE IV (CKD) Dextrose/Water 925 ML Linezolid 600 MG Q12HR FEED-TUBE Clonidine HCl 0.3 MG Q7D TRANSDERM (CKD) Nicardipine HCl 200 ML TITRATE IV Labetalol HCl 10 MG Q6H PRN PRN IV Acetaminophen 650 MG Q4H PRN PRN FEED-TUBE Isosorbide Mononitrate 30 MG BID FEED-TUBE Potassium Chloride 100 ML ASDIR PRN IV Potassium Bicarbonate/Citric Acid 20 MEQ ASDIR P O (CKD) Potassium Chloride 100 ML ASDIR PRN IV Hydralazine HCl 100 MG Q8HR PO Labetalol HCl 400 MG Q8HR PO Magnesium 100 ML ASDIR PRN IV Magnesium Sulfate 50 ML ASDIR PRN IV Magnesium Sulfate 100 ML ASDIR PRN IV Amlodipine Besylate 5 MG Q12HR PO Aspirin 81 MG DAILY FEED-TUBE Atorvastatin Calcium 40 MG DAILY FEED-TUBE Albuterol/Ipratropium 3 ML RTQ6H INH Dextrose/Water 25 ML ASDIR PRN IV Glucagon 1 MG ASDIR PRN IM Insulin Human Lispro LOW DOSE SCALE ASDIR SUBQ Sterile Water 1 ML ASDIR PRN IM Famotidine 20 MG DAILY PO Heparin Sodium (Porcine) 5,000 UNIT Q12HR SUBQ Physical Exam ENT: TRACH WITH A LOT OF MUCOID SECREIONS Cardiovascular: tachycardia Respiratory: crackles Abdomen: non-tender, soft, no distention, no gua rding, no rebound Genitourinary: zuñiga Skin: dry Diagnosis, Assessment Plan Free Text A P: 07-14-2020 URINE RETNSIN>>> FOLFY BACTRERMIA : MIXED >> REEOLVED PNA: TERATED : IMRPVONG RENAL FAILURE WITH EOSINOPHYLIA ID PLAN: D/C ALL B LACTAMS, AND FINSHE THE JOB W ITH 6 MORE DAY OF LINEZOLID. OK TO USE STEROIDS BY NEPHROLOGY IF IT IS FELT T O BE ISN CAUSED BY B LACTAMS. 07-15-20 BACTEREMIA RESOLVED CONTINUE WITH LINEZOLID X6 DAYS NEPHROLOGY NOTED 07-16-20 SAME ABX ON STEROIDS Faby Blanchard 07/16/20 1037: Diagnosis, Assessment Plan Free Text A P: 07-16-2020 BACTERMIA : WILL FINISH THE JOB WITH LINEZOLID. ON STERIDS FOR POSSIBLE ISN Electronically Signed by Sofie Freed DPM R3 on at 1019 Electronically Signed by Faby Blanchard MD on 0 07/16/20 at 1039 RPT #:[id number] END OF REPORT 2020-07-16 09:41:00-00:00 [facility] Neurology Progress Note REPORT#:[id number] REPORT STATUS: Signed DATE:07/16/20 TIME: 940 PATIENT: JORGE GOINS UNIT #: [id number] ROOM/BED: [address] : [birth year] AGE: 34 SEX: M ATTEND: Luis M Olmedo MD ADM AUTHOR: Sinai Rogers DPM R2 * ALL edits or amendments must be made on the el [employer]/computer document * Subjective HPI: No acute overnight events. Patient more awake and able to follow some commands Review of Systems Unable to obtain due to: medical condition Objective General VS: Last Documented: Result Date Time Temp 37.3 07/16 0742 FiO2 28 07/16 0742 O2 Delivery Tracheostomy collar 07/16 0742 O2 Flow Rate 6 07/16 0742 Pulse Ox 99 07/16 0631 Pulse 67 07/16 0631 Resp 31 07/16 0631 B/P 159/72 07/16 0630 B/P Mean 104 07/16 0630 PATIENT WEIGHT: Weight (lb): 198 Weight (oz): 10.18 Weight (kg): 90.100 Physical Exam Head/Eyes: atraumatic, normocephalic ENT: moist mucosal membranes Neck: non-tender, no masses or swelling Cardiovascular: irregular rate and rhythm, murmu r Respiratory: decreased breath sounds, intubated/ mech vent Abdomen: non-tender, normal bowel sounds, soft Results Findings/Data: Laboratory Tests 07/16 317 Blood Gas VBG pH (7.32 - 7.43) 7.442 H VBG pCO2 (35 - 45 mmHg) 19.6 *L VBG pO2 (80 - 108 mmHg) 56.1 L VBG HCO3 (22 - 29 mmol/L) 13.4 L VBG O2 Saturation (94 - 98 %) 91.0 L VBG Base Excess (-2 - 3 mml/L) -9.0 L Sodium (138 - 146 mmol/l) 152 H Potassium (3.5 - 4.5 mmol/L) 3.4 L Glucose (74 - 100 mg/dL) 190 H Ionized Calcium (1.15 - 1.33 MMOL/L) 0.86 L Instrument (Specimen Descript) Venous Laboratory Tests 07/162 2054 1455 1448 1116 Chemistry Sodium (137 - 145 mmol/L) 153 H 150 H Potassium (3.4 - 5.0 mmol/L) 3.4 2.8 L Chloride (98 - 107 mmol/L) 118 H 118 H Carbon Dioxide (22 - 30 mmol/L) 17 L 21 L BUN (9 - 20 mg/dL) 65 H 61 H Creatinine (0.7 - 1.3 mg/dL) 6.8 H 6.8 H Glomerular Filtr Rate (>60) 12 L 12 L Glucose (74 - 106 mg/dL) 184 H 103 POC Glucose (74 - 106 MG/DL) 134 H 107 H 110 H Calcium (8.4 - 10.2 mg/dL) 8.5 8.4 Laboratory Tests 07/16 231 Hematology WBC (5.0 - 12.0 x10 3/uL) 5.6 RBC (4.70 - 6.10 x10 6/uL) 3.20 L Hgb (14.0 - 18.0 g/dL) 8.8 L Hct (37.0 - 49.0 %) 29.9 L MCV (80 - 94 fL) 93 MCH (27 - 31 pg) 27.5 MCHC (33 - 37 g/dL) 29.4 L RDW (11.5 - 15.5 %) 16.7 H Plt Count (130 - 400 x10 3/uL) 279 MPV (9.4 - 16.4 fL) 10.6 Total Counted (#CELLS) 100 Seg Neutrophils % (43 - 65 %) 95 H Lymphocytes % (Manual) (20.5 - 45.5 %) 2 L Eosinophils % (Manual) (0.9 - 2.9 %) 2 Basophils % (Manual) (0.2 - 1.0 %) 2 H Platelet Estimate (ADEQUATE) ADEQUATE Plt Morphology Comment (NORMAL) NORMAL Polychromasia (NONE SEEN) 1+ H Anisocytosis (NONE SEEN) 1+ H Microcytosis (NONE SEEN) 1+ H Radiology Data: Recent Impressions: RADIOLOGY - XR CHEST 1 V 07/16 0503 Report Impression - Status: SIGNED Entered: 07/16/2020 0626 IMPRESSION: No acute cardiopulmonary abnormality. Impression By: LourdesHV2 - Denny Mohamud MD Diagnosis, Assessment Plan Free Text A P: Assessment 1. Acute encephalopathy - multifactorial - metab olic/hypertensive emergency/ acute stroke 2. Acute ischemic strokes, suspect embolic sourc e, + PFO, b/l lower extremity dopplers negative 3. s/p PEA arrest 06/11/20 4. hypertensive emergency - still requiring akua rdipine drip and antihypertensives being adjusted 5. acute respiratory failure requiring intubatio n 6. complicated type b aortic dissection, in need of extension TEVAR when stable per vascular surgery Plan Severe critical illness myopathy more awake today. Able to track and follow some commands S/p trach and PEG blood pressure control - on cardene drip continue medical management antibiotics per ID recommendations hemodialysis catheter was placed to right procurement internship al jugular vein (07/14) asa and statin consider PFO closure in future when medically st abilized Will d/w attending Dr. Chino Electronically Signed by Sinai Rogers DPM R2 on 0 07/16/20 at 0947 RPT #:[id number] END OF REPORT 2020-07-16 09:41:00-00:00 [facility] Neurology Progress Note REPORT#:[id number] REPORT STATUS: Signed DATE:07/16/20 TIME: 09 PATIENT: JORGE GOINS UNIT #: [id number] ROOM/BED: [address] : [birth year] AGE: 34 SEX: M ATTEND: Luis M Olmedo MD ADM AUTHOR: Sinai Rogers DPM R2 * ALL edits or amendments must be made on the el [employer]/computer document * Sinai Rogers 07/16/20 0941: Subjective HPI: No acute overnight events. Patient more awake and able to follow some commands Review of Systems Unable to obtain due to: medical condition Objective General VS: Last Documented: Result Date Time Temp 37.3 07/16 741 FiO2 28 07/16 741 O2 Delivery Tracheostomy collar 07/16 741 O2 Flow Rate 6 07/16 741 Pulse Ox 99 07/16 630 Pulse 67 07/16 630 Resp 31 07/16 630 B/P 159/72 07/16 629 B/P Mean 104 07/16 629 PATIENT WEIGHT: Weight (lb): 198 Weight (oz): 10.18 Weight (kg): 90.100 Physical Exam Head/Eyes: atraumatic, normocephalic ENT: moist mucosal membranes Neck: non-tender, no masses or swelling Cardiovascular: irregular rate and rhythm, murmu r Respiratory: decreased breath sounds, intubated/ mech vent Abdomen: non-tender, normal bowel sounds, soft Results Findings/Data: Laboratory Tests 07/168 Blood Gas VBG pH (7.32 - 7.43) 7.442 H VBG pCO2 (35 - 45 mmHg) 19.6 *L VBG pO2 (80 - 108 mmHg) 56.1 L VBG HCO3 (22 - 29 mmol/L) 13.4 L VBG O2 Saturation (94 - 98 %) 91.0 L VBG Base Excess (-2 - 3 mml/L) -9.0 L Sodium (138 - 146 mmol/l) 152 H Potassium (3.5 - 4.5 mmol/L) 3.4 L Glucose (74 - 100 mg/dL) 190 H Ionized Calcium (1.15 - 1.33 MMOL/L) 0.86 L Instrument (Specimen Descript) Venous Laboratory Tests 07/16 07/15 07/15 07/15 07/15 0232 2054 1455 1448 1116 Chemistry Sodium (137 - 145 mmol/L) 153 H 150 H Potassium (3.4 - 5.0 mmol/L) 3.4 2.8 L Chloride (98 - 107 mmol/L) 118 H 118 H Carbon Dioxide (22 - 30 mmol/L) 17 L 21 L BUN (9 - 20 mg/dL) 65 H 61 H Creatinine (0.7 - 1.3 mg/dL) 6.8 H 6.8 H Glomerular Filtr Rate (>60) 12 L 12 L Glucose (74 - 106 mg/dL) 184 H 103 POC Glucose (74 - 106 MG/DL) 134 H 107 H 110 H Calcium (8.4 - 10.2 mg/dL) 8.5 8.4 Laboratory Tests 07/16 0232 Hematology WBC (5.0 - 12.0 x10 3/uL) 5.6 RBC (4.70 - 6.10 x10 6/uL) 3.20 L Hgb (14.0 - 18.0 g/dL) 8.8 L Hct (37.0 - 49.0 %) 29.9 L MCV (80 - 94 fL) 93 MCH (27 - 31 pg) 27.5 MCHC (33 - 37 g/dL) 29.4 L RDW (11.5 - 15.5 %) 16.7 H Plt Count (130 - 400 x10 3/uL) 279 MPV (9.4 - 16.4 fL) 10.6 Total Counted (#CELLS) 100 Seg Neutrophils % (43 - 65 %) 95 H Lymphocytes % (Manual) (20.5 - 45.5 %) 2 L Eosinophils % (Manual) (0.9 - 2.9 %) 2 Basophils % (Manual) (0.2 - 1.0 %) 2 H Platelet Estimate (ADEQUATE) ADEQUATE Plt Morphology Comment (NORMAL) NORMAL Polychromasia (NONE SEEN) 1+ H Anisocytosis (NONE SEEN) 1+ H Microcytosis (NONE SEEN) 1+ H Radiology Data: Recent Impressions: RADIOLOGY - XR CHEST 1 V 07/16 0503 Report Impression - Status: SIGNED Entered: 07/16/2020 7147 IMPRESSION: No acute cardiopulmonary abnormality. Impression By: LourdesHV2 - Denny Mohamud MD Diagnosis, Assessment Plan Free Text A P: Assessment 1. Acute encephalopathy - multifactorial - metab olic/hypertensive emergency/ acute stroke 2. Acute ischemic strokes, suspect embolic sourc e, + PFO, b/l lower extremity dopplers negative 3. s/p PEA arrest 06/11/20 4. hypertensive emergency - still requiring akua rdipine drip and antihypertensives being adjusted 5. acute respiratory failure requiring intubatio n 6. complicated type b aortic dissection, in need of extension TEVAR when stable per vascular surgery Plan Severe critical illness myopathy more awake today. Able to track and follow some commands S/p trach and PEG blood pressure control - on cardene drip continue medical management antibiotics per ID recommendations hemodialysis catheter was placed to right procurement internship al jugular vein (07/14) asa and statin consider PFO closure in future when medically st abilized Will d/w attending William Agarwal 07/16/20 1617: Diagnosis, Assessment Plan Free Text A P: agree with above note/ plan by resident Electronically Signed by Sinai Rogers DPM R2 on 0 07/16/20 at 0947 at 1617 RPT #:[id number] END OF REPORT 2020-07-15 21:29:00-00:00 [facility]) Cardiology Progress Note REPORT#:[id number] REPORT STATUS: Signed DATE:07/15/20 TIME: 2128 PATIENT: JORGE GOINS UNIT #: [id number] ROOM/BED: [address] : [birth year] AGE: 34 SEX: M ATTEND: Luis M Olmedo MD ADM AUTHOR: Giancarlo Phan MD * ALL edits or amendments must be made on the el [employer]/computer document * Subjective Free Text Subj Notes Free Text Subj Notes: No real acute changes Objective Physical Exam Head/Eyes: atraumatic, normocephalic ENT: moist mucosal membranes, normal nose Neck: non-tender, supple/no meningismus, traches otomy prsent Cardiovascular: CV assessment: regular rate and rhythm, no murm ur Respiratory: no distress, coarse breathsounds, m echanically ventialted Abdomen: soft, non-tender Upper extremity: UE assessment: normal capillary refill, normal temperature Lower extremity: LE assessment: normal capillary refill, normal temperature, no edema Musculoskeletal: normal inspection Neuro/RADIOTELEGRAPHIST: vented via trachesotomy, not followin g commands Diagnosis, Assessment Plan Free Text DxA P Notes Free Text DxA P Notes: 1. Hypertensive urgency/emergency - presented with severely elevated BP requiring 2 IV infusions, subsequently suffered PEA cardiac arrest - BP control improving - cont hydralazine 100mg Q8H, labetalol 400mg Q 8H, clonidine patch has been increased to 0.3 - norvasc 5mg PO BID and ISMN 30mg BID -We will continue to watch blood pressure very closely. Given current renal failure somewhat inhibits th e addition of Aldactone as well as thiazides as well as CECI/ARB's. 2. Cardiac arrest - PEA in etiology, pt became hypothermic and sub sequently bradycardic 3. Type B aortic dissection s/p EVAR - has residual descending aortic dissect ion extending into iliacs. No evidence of rupture on CTA. Reviewed by vascular surgery - appreciate assitance - optimal BP Control as above 4. Acute on chronic systolic heart failure - likely hypertensive heart disease due to long standing elevated BP - warm and well perfused on examination - cont lasix gtt 5. Shock - resolved 6. JENNIFER on CKD stage 3 - improved - likely secondary to fluctuation in BP - nephrology following, appreciate recommendatio ns - monitor UOP 7. Acute hypoxic respiratory failure - now has tracheostomy- per ICU team 8. Stroke: - CT head and MRI with evidence of prior CVA - TTE with possible PFO - m continue to monitor for further neurologic improvement. I believe given patient's overall c ondition would like to see significant improvement. Will follow. Please call if questions. [facility] Cardiology Electronically Signed by Giancarlo Phan MD on 06/27 at 2131 RPT #:[id number] END OF REPORT 2020-07-15 21:06:00-00:[address] [facility] ([facility]) Nephrology Progress Note REPORT#:[id number] REPORT STATUS: Signed DATE:07/15/20 TIME: 2105 PATIENT: JORGE GOINS UNIT #: [id number] ROOM/BED: [address] : [birth year] AGE: 34 SEX: M ATTEND: Luis M Olmedo MD ADM AUTHOR: Jojo York MD * ALL edits or amendments must be made on the el [employer] document * Subjective Comments: events noted Objective General VS/I O: Vital Signs: Date Time Temp Pulse Resp B/P B/P Pulse O2 O2 Fl ow FiO2 Mean Ox Delivery Rate 07/15 1999 99.2 07/15 1840 74 32 82 07/15 1830 75 35 174/76 109 80 07/15 1815 73 166/65 104 82 07/15 1800 75 164/72 104 92 07/15 1745 75 167/73 105 90 07/15 1730 81 169/74 107 85 07/15 1715 86 164/73 105 92 07/15 1700 82 169/74 107 96 07/15 1645 76 168/75 108 95 07/15 1630 79 169/77 110 78 07/15 1615 80 161/72 103 100 07/15 1600 98.6 07/15 1600 77 172/76 109 100 07/15 1545 80 168/77 111 100 07/15 1531 83 33 166/74 106 07/15 1515 77 32 168/74 106 100 07/15 1500 81 30 169/74 107 100 07/15 1445 92 40 166/74 107 94 07/15 1430 83 36 165/74 107 98 07/15 1415 85 33 161/71 102 100 07/15 1400 86 39 158/70 100 85 07/15 1345 85 35 147/67 97 100 07/15 1341 88 33 143/67 94 100 07/15 1337 97 33 160/74 106 100 07/15 1330 100 40 164/77 110 100 07/15 1315 108 40 161/78 108 100 07/15 1303 98.6 103 40 146/72 100 6 Tracheostomy collar 07/15 1300 104 39 146/72 100 100 07/15 1245 108 30 160/81 109 100 07/15 1239 107 18 151/77 106 100 07/15 1230 113 37 137/73 97 100 07/15 1215 110 10 149/69 101 100 07/15 1200 98.9 07/15 1200 96 23 167/81 115 100 07/15 1145 90 32 165/79 114 100 07/15 1130 96 31 160/77 108 100 07/15 1115 106 37 159/80 110 100 07/15 1100 107 9 150/77 104 75 01/20 1045 108 39 149/81 105 86 01/20 1030 101 23 156/77 110 01/20 1015 101 24 150/76 104 91 01/20 1006 99.7 91 30 149/70 98 6.0 Tracheostomy collar /20 1000 101 20 153/78 105 93 01/20 0945 101 20 150/72 102 99 01/20 0930 96 31 157/78 109 100 /20 0921 96 32 159/74 107 100 01/20 0919 100 5 28 Tracheostomy collar 07/15 0915 93 29 166/73 109 100 /20 0914 5 35 Tracheostomy collar 07/15 0900 91 23 161/76 109 100 01/20 0845 91 30 149/70 100 100 01/20 0830 91 18 141/63 91 100 01/20 0815 96 28 148/64 95 100 01/20 0800 99.3 01/20 0800 95 31 155/69 99 100 01/20 0745 98 31 159/73 105 100 01/20 0730 94 29 156/68 98 100 01/20 0715 92 34 147/67 97 100 01/20 0700 90 26 138/63 91 100 01/20 0645 96 36 136/61 86 100 01/20 0630 92 36 145/66 95 100 01/20 0615 89 30 154/72 103 100 01/20 0600 91 32 149/71 102 100 01/20 0545 96 42 146/69 99 100 01/20 0530 95 33 146/67 97 100 01/20 0515 91 33 148/65 94 100 01/20 0500 91 36 146/65 93 100 01/20 0445 91 28 159/70 100 89 01/20 0430 78 6 158/70 100 100 01/20 0415 85 29 149/66 95 100 01/20 0400 100.0 Tracheostomy collar /20 0400 88 24 147/66 95 93 01/20 0345 98 19 141/63 93 94 01/20 0330 102 31 164/72 104 100 01/20 0315 86 0 153/67 97 100 01/20 0300 91 21 151/65 94 100 01/20 0245 91 20 147/65 94 100 01/20 0230 84 10 153/67 96 100 01/20 0215 101 25 149/64 92 100 01/20 0200 97 21 156/67 97 100 01/20 0145 96 11 153/68 98 100 07/15 0130 95 10 147/65 94 100 07/15 0115 95 27 143/64 92 100 07/15 0100 98 28 146/66 95 100 07/15 0045 95 27 147/66 95 100 07/15 0030 96 28 152/67 97 100 07/15 0015 104 35 144/66 95 100 07/15 0000 100.2 35 Tracheostomy collar 07/15 0000 97 32 148/64 92 100 07/14 2345 101 39 133/57 85 99 07/14 2330 98 21 149/65 93 100 07/14 2315 97 27 153/68 98 100 07/14 2300 93 13 142/64 92 100 07/14 2245 91 29 154/69 99 100 07/14 2230 89 27 151/64 92 100 07/14 2215 88 27 149/66 95 100 07/14 2200 90 27 151/57 94 100 07/14 2145 92 25 152/68 98 100 07/14 2130 91 40 145/67 96 100 07/14 2115 91 26 145/65 94 100 24 hour I O ending at 0700: 07/15 0700 07/14 1900 Intake Total 2764.00 2644.00 Output Total 2300 2000 Balance 464.00 644.00 Intake, Free 300 Water Intake, IV 1984.00 2164.00 Intake, Tube 480 480 Feeding Output, Stool 1200 1200 Output, Urine 1100 800 Patient 90.1 kg Weight Weight Bed scale Measurement Method Medications Active Meds + DC'd Last 24 Hrs Methylprednisolone Sodium Succinate 40 MG Q12HR IV Heparin Sodium (Porcine) 5,000 UNIT DIALYSIS-DOS E AFTER MISC Sodium Chloride 1,000 ML ASDIR PRN IV Sodium Bicarbonate 75 MEQ SEE RATE IV (CKD) Dextrose/Water 925 ML Linezolid 600 MG Q12HR FEED-TUBE Clonidine HCl 0.3 MG Q7D TRANSDERM (CKD) Nicardipine HCl 200 ML TITRATE IV Labetalol HCl 10 MG Q6H PRN PRN IV Acetaminophen 650 MG Q4H PRN PRN FEED-TUBE Isosorbide Mononitrate 30 MG BID FEED-TUBE Potassium Chloride 100 ML ASDIR PRN IV Potassium Bicarbonate/Citric Acid 20 MEQ ASDIR P O (CKD) Potassium Chloride 100 ML ASDIR PRN IV Hydralazine HCl 100 MG Q8HR PO Labetalol HCl 400 MG Q8HR PO Magnesium 100 ML ASDIR PRN IV Magnesium Sulfate 50 ML ASDIR PRN IV Magnesium Sulfate 100 ML ASDIR PRN IV Amlodipine Besylate 5 MG Q12HR PO Aspirin 81 MG DAILY FEED-TUBE Atorvastatin Calcium 40 MG DAILY FEED-TUBE Albuterol/Ipratropium 3 ML RTQ6H INH Dextrose/Water 25 ML ASDIR PRN IV Glucagon 1 MG ASDIR PRN IM Insulin Human Lispro LOW DOSE SCALE ASDIR SUBQ Sterile Water 1 ML ASDIR PRN IM Famotidine 20 MG DAILY PO Heparin Sodium (Porcine) 5,000 UNIT Q12HR SUBQ Physical Exam General appearance: no acute distress Head/eyes: normal conjunctiva/sclera Neck: trach in place Respiratory: symmetric expansion Genitourinary: zuñiga, urine (appears pink) Extremities: pedal edema improved Musculoskeletal: normal inspection Neuro/RADIOTELEGRAPHIST: SEDATED Hemodialysis access: Type: vascath Psychiatry: unable to evaluate Results Findings/Data: Laboratory Tests 07/15 07/15 1448 0149 Chemistry Sodium (137 - 145 mmol/L) 150 H 159 H Potassium (3.4 - 5.0 mmol/L) 2.8 L 3.5 Chloride (98 - 107 mmol/L) 118 H 128 H Carbon Dioxide (22 - 30 mmol/L) 21 L 12 L BUN (9 - 20 mg/dL) 61 H 89 H Creatinine (0.7 - 1.3 mg/dL) 6.8 H 9.1 H Glomerular Filtr Rate (>60) 12 L 9 L Glucose (74 - 106 mg/dL) 103 100 Calcium (8.4 - 10.2 mg/dL) 8.4 8.7 Laboratory Tests 07/15 0149 Hematology WBC (5.0 - 12.0 x10 3/uL) 6.5 RBC (4.70 - 6.10 x10 6/uL) 3.03 L Hgb (14.0 - 18.0 g/dL) 8.5 L Hct (37.0 - 49.0 %) 29.5 L MCV (80 - 94 fL) 97 H MCH (27 - 31 pg) 28.1 MCHC (33 - 37 g/dL) 28.8 L RDW (11.5 - 15.5 %) 17.2 H Plt Count (130 - 400 x10 3/uL) 292 MPV (9.4 - 16.4 fL) 10.0 Neut % (Auto) (43 - 65 %) 76.9 H Lymph % (Auto) (20.5 - 45.5 %) 8.0 L Citrus % (Auto) (5.5 - 11.7 %) 5.4 L Eos % (Auto) (0.9 - 2.9 %) 8.2 H Baso % (Auto) (0.2 - 1.0 %) 0.3 Neut # (Auto) (2.2 - 4.8 x10 3/uL) 4.96 H Lymph # (Auto) (1.3 - 2.9 x10 3/uL) 0.52 L Citrus # (Auto) (0.3 - 0.8 x10 3/uL) 0.35 Eos # (Auto) (0.0 - 0.2 x10 3/uL) 0.53 H Baso # (Auto) (0.0 - 0.1 x10 3/uL) 0.02 Immature Gran % (0.0 - 2.0 %) 1.2 Nucleated RBC % (0 - 1.0 %) 0.0 Platelet Estimate (ADEQUATE) ADEQUATE Plt Morphology Comment (NORMAL) NORMAL Polychromasia (NONE SEEN) 2+ H Anisocytosis (NONE SEEN) 1+ H Microcytosis (NONE SEEN) 1+ H Laboratory Tests 07/15 07/15 0935 0935 Serology Hep Bs Antigen (NEGATIVE) NEGATIVE Hep Bs Antibody NEGATIVE Diagnosis, Assessment Plan Free Text A P: JENNIFER hypotension AAA lactic acidosis severe metabolic acidosis- resolved Metabolic alkalosis - resolved s/p mena - first hd today will plan for hd again tomorrow am labs at 2108 RPT #:[id number] END OF REPORT 2020-07-15 20:17:00-00:[address] [facility] ([facility] Critical Care Progress Note REPORT#:[id number] REPORT STATUS: Signed DATE:07/15/20 TIME: 2016 PATIENT: JORGE GOINS UNIT #: [id number] ROOM/BED: [address] : [birth year] AGE: 34 SEX: M ATTEND: Luis M Olmedo MD ADM AUTHOR: Papi England MD * ALL edits or amendments must be made on the el [employer] document * Subjective Chief Complaint: undergoing hD awake following commands Not able to move extremities Objective General VS/I O Last Documented: Result Date Time Pulse Ox 82 07/15 184 Pulse 74 07/15 1840 Resp 32 07/15 1840 B/P 174/76 07/15 1830 B/P Mean 109 07/15 1830 Temp 37.0 07/15 1600 O2 Delivery Tracheostomy collar 07/15 1303 O2 Flow Rate 6 07/15 1303 FiO2 28 07/15 0919 24 hour I O ending at 0700: 07/15 0700 07/14 1900 Intake Total 2764.00 2644.00 Output Total 2300 2000 Balance 464.00 644.00 Intake, Free 300 Water Intake, IV 1984.00 2164.00 Intake, Tube 480 480 Feeding Output, Stool 1200 1200 Output, Urine 1100 800 Patient 90.1 kg Weight Weight Bed scale Measurement Method PATIENT WEIGHT: Weight (lb): 198 Weight (oz): 10.18 Weight (kg): 90.100 Medications: Active Meds + DC'd Last 24 Hrs Methylprednisolone Sodium Succinate 40 MG Q12HR IV Heparin Sodium (Porcine) 5,000 UNIT DIALYSIS-DOS E AFTER MISC Sodium Chloride 1,000 ML ASDIR PRN IV Sodium Bicarbonate 75 MEQ SEE RATE IV (CKD) Dextrose/Water 925 ML Linezolid 600 MG Q12HR FEED-TUBE Clonidine HCl 0.3 MG Q7D TRANSDERM (CKD) Nicardipine HCl 200 ML TITRATE IV Labetalol HCl 10 MG Q6H PRN PRN IV Acetaminophen 650 MG Q4H PRN PRN FEED-TUBE Isosorbide Mononitrate 30 MG BID FEED-TUBE Potassium Chloride 100 ML ASDIR PRN IV Potassium Bicarbonate/Citric Acid 20 MEQ ASDIR P O (CKD) Potassium Chloride 100 ML ASDIR PRN IV Hydralazine HCl 100 MG Q8HR PO Labetalol HCl 400 MG Q8HR PO Magnesium 100 ML ASDIR PRN IV Magnesium Sulfate 50 ML ASDIR PRN IV Magnesium Sulfate 100 ML ASDIR PRN IV Amlodipine Besylate 5 MG Q12HR PO Aspirin 81 MG DAILY FEED-TUBE Atorvastatin Calcium 40 MG DAILY FEED-TUBE Albuterol/Ipratropium 3 ML RTQ6H INH Dextrose/Water 25 ML ASDIR PRN IV Glucagon 1 MG ASDIR PRN IM Insulin Human Lispro LOW DOSE SCALE ASDIR SUBQ Sterile Water 1 ML ASDIR PRN IM Famotidine 20 MG DAILY PO Heparin Sodium (Porcine) 5,000 UNIT Q12HR SUBQ Physical Exam General appearance: alert, awake Head/Eyes: atraumatic, normocephalic Cardiovascular: normal heart sounds, normal S1 S 2, normal rate and rhythm Respiratory/Chest: aerating well, clear to auscu ltation Abdomen: soft, non-tender, normal bowel sounds, no distention Extremities: no edema Neuro/RADIOTELEGRAPHIST: disoriented Results Findings/Data: Laboratory Tests 07/15/20 1448: [Embedded Image Not Available] 07/15/20 0149: [Embedded Image Not Available] Laboratory Tests 07/15 07/15 1448 0149 Chemistry Sodium (137 - 145 mmol/L) 150 H 159 H Potassium (3.4 - 5.0 mmol/L) 2.8 L 3.5 Chloride (98 - 107 mmol/L) 118 H 128 H Carbon Dioxide (22 - 30 mmol/L) 21 L 12 L BUN (9 - 20 mg/dL) 61 H 89 H Creatinine (0.7 - 1.3 mg/dL) 6.8 H 9.1 H Glomerular Filtr Rate (>60) 12 L 9 L Glucose (74 - 106 mg/dL) 103 100 Calcium (8.4 - 10.2 mg/dL) 8.4 8.7 Laboratory Tests 07/15 014 Hematology WBC (5.0 - 12.0 x10 3/uL) 6.5 RBC (4.70 - 6.10 x10 6/uL) 3.03 L Hgb (14.0 - 18.0 g/dL) 8.5 L Hct (37.0 - 49.0 %) 29.5 L MCV (80 - 94 fL) 97 H MCH (27 - 31 pg) 28.1 MCHC (33 - 37 g/dL) 28.8 L RDW (11.5 - 15.5 %) 17.2 H Plt Count (130 - 400 x10 3/uL) 292 MPV (9.4 - 16.4 fL) 10.0 Neut % (Auto) (43 - 65 %) 76.9 H Lymph % (Auto) (20.5 - 45.5 %) 8.0 L Citrus % (Auto) (5.5 - 11.7 %) 5.4 L Eos % (Auto) (0.9 - 2.9 %) 8.2 H Baso % (Auto) (0.2 - 1.0 %) 0.3 Neut # (Auto) (2.2 - 4.8 x10 3/uL) 4.96 H Lymph # (Auto) (1.3 - 2.9 x10 3/uL) 0.52 L Citrus # (Auto) (0.3 - 0.8 x10 3/uL) 0.35 Eos # (Auto) (0.0 - 0.2 x10 3/uL) 0.53 H Baso # (Auto) (0.0 - 0.1 x10 3/uL) 0.02 Immature Gran % (0.0 - 2.0 %) 1.2 Nucleated RBC % (0 - 1.0 %) 0.0 Platelet Estimate (ADEQUATE) ADEQUATE Plt Morphology Comment (NORMAL) NORMAL Polychromasia (NONE SEEN) 2+ H Anisocytosis (NONE SEEN) 1+ H Microcytosis (NONE SEEN) 1+ H Laboratory Tests 07/15 07/15 0935 0935 Serology Hep Bs Antigen (NEGATIVE) NEGATIVE Hep Bs Antibody NEGATIVE Radiology data Recent Impressions: RADIOLOGY - XR CHEST 1 V 07/14 8561 Report Impression - Status: SIGNED Entered: 07/15/2020 0012 IMPRESSION: 1. Interval placement of a right IJ approach flores lysis catheter with tip projecting over the right brachiocephalic ve in/SVC junction. 2. No pneumothorax. 3. Stable mild cardiomegaly and mild pulmonary v ascular congestion. Impression By: [email or web address] - Cheli Alfaro MD Diagnosis, Assessment Plan Free text A P: 34 year old male with history of aortic dissecti on s/p EVAR came in for hypertensive urgency A/P: Neuro -MRI multiple ischemic cva Neuro status slowly improving More awake. Starting to track and follow command s intermittently #AMS as above Pulm -s/p trach On TC CV #s/p Cardiac Arrest - PEA hypotensive. ROSC achieved after 9 minutes - likely from cardiogenic shock EF 30-34% - Aortic dissection ruled out from CTA chest , a bdomen and pelvis #hx of EVAR for aortic dissection and h/o endole ak in the past - per vascular surgery -uncontrolled hypertension resume cardne keep systoli cBP around 140 # Fever abx GI on tube feeidng Renal Acute renal failure on hd gi ppx: pepcid dvt ppx: heparin Diet: tube feeds condition critical prognosis guarded at 2019 RPT #:[id number] END OF REPORT 2020-07-15 09:28:00-00:[address] [facility] ([facility]) Neurology Progress Note REPORT#:[id number] REPORT STATUS: Signed DATE:07/15/20 TIME: 927 PATIENT: JORGE GOINS UNIT #: [id number] ROOM/BED: [address] : [birth year] AGE: 34 SEX: M ATTEND: Luis M Olmedo MD ADM AUTHOR: Sinai Rogers DPM R2 * ALL edits or amendments must be made on the el [employer] document * Subjective HPI: Per nurse, no acute events. To undergo HD today Review of Systems Unable to obtain due to: medical condition Objective General VS: Last Documented: Result Date Time FiO2 35 07/15 0914 O2 Delivery Tracheostomy collar 07/15 913 O2 Flow Rate 5 07/15 0914 Temp 37.4 07/15 0800 Pulse Ox 100 07/15 0645 B/P 136/61 07/15 0645 B/P Mean 86 07/15 0645 Pulse 96 07/15 0645 Resp 36 07/15 0645 PATIENT WEIGHT: Weight (lb): 198 Weight (oz): 10.18 Weight (kg): 90.100 Physical Exam Head/Eyes: atraumatic, normocephalic ENT: moist mucosal membranes Neck: non-tender, no masses or swelling Cardiovascular: irregular rate and rhythm, murmu r Respiratory: decreased breath sounds, intubated/ mech vent Abdomen: non-tender, normal bowel sounds, soft Neuro/RADIOTELEGRAPHIST: Sedated Results Findings/Data: Laboratory Tests 07/15 148 Chemistry Sodium (137 - 145 mmol/L) 159 H Potassium (3.4 - 5.0 mmol/L) 3.5 Chloride (98 - 107 mmol/L) 128 H Carbon Dioxide (22 - 30 mmol/L) 12 L BUN (9 - 20 mg/dL) 89 H Creatinine (0.7 - 1.3 mg/dL) 9.1 H Glomerular Filtr Rate (>60) 9 L Glucose (74 - 106 mg/dL) 100 Calcium (8.4 - 10.2 mg/dL) 8.7 Laboratory Tests 07/14 2002 Coagulation INR 1.3 PT Patient/Control Mix (9.2 - 12.1 SECONDS) 14. 1 H Laboratory Tests 07/15 0149 Hematology WBC (5.0 - 12.0 x10 3/uL) 6.5 RBC (4.70 - 6.10 x10 6/uL) 3.03 L Hgb (14.0 - 18.0 g/dL) 8.5 L Hct (37.0 - 49.0 %) 29.5 L MCV (80 - 94 fL) 97 H MCH (27 - 31 pg) 28.1 MCHC (33 - 37 g/dL) 28.8 L RDW (11.5 - 15.5 %) 17.2 H Plt Count (130 - 400 x10 3/uL) 292 MPV (9.4 - 16.4 fL) 10.0 Neut % (Auto) (43 - 65 %) 76.9 H Lymph % (Auto) (20.5 - 45.5 %) 8.0 L Citrus % (Auto) (5.5 - 11.7 %) 5.4 L Eos % (Auto) (0.9 - 2.9 %) 8.2 H Baso % (Auto) (0.2 - 1.0 %) 0.3 Neut # (Auto) (2.2 - 4.8 x10 3/uL) 4.96 H Lymph # (Auto) (1.3 - 2.9 x10 3/uL) 0.52 L Citrus # (Auto) (0.3 - 0.8 x10 3/uL) 0.35 Eos # (Auto) (0.0 - 0.2 x10 3/uL) 0.53 H Baso # (Auto) (0.0 - 0.1 x10 3/uL) 0.02 Immature Gran % (0.0 - 2.0 %) 1.2 Nucleated RBC % (0 - 1.0 %) 0.0 Platelet Estimate (ADEQUATE) ADEQUATE Plt Morphology Comment (NORMAL) NORMAL Polychromasia (NONE SEEN) 2+ H Anisocytosis (NONE SEEN) 1+ H Microcytosis (NONE SEEN) 1+ H Radiology Data: Recent Impressions: RADIOLOGY - XR CHEST 1 V 07/14 2341 Report Impression - Status: SIGNED Entered: 07/15/2020 0012 IMPRESSION: 1. Interval placement of a right IJ approach flores lysis catheter with tip projecting over the right brachiocephalic ve in/SVC junction. 2. No pneumothorax. 3. Stable mild cardiomegaly and mild pulmonary v ascular congestion. Impression By: [email or web address] - Cheli Alfaro MD Diagnosis, Assessment Plan Free Text A P: Assessment 1. Acute encephalopathy - multifactorial - metab olic/hypertensive emergency/ acute stroke 2. Acute ischemic strokes, suspect embolic sourc e, + PFO, b/l lower extremity dopplers negative 3. s/p PEA arrest 06/11/20 4. hypertensive emergency - still requiring auka rdipine drip and antihypertensives being adjusted 5. acute respiratory failure requiring intubatio n 6. complicated type b aortic dissection, in need of extension TEVAR when stable per vascular surgery Plan Severe critical illness myopathy S/p trach and PEG blood pressure control - on cardene drip continue medical management antibiotics per ID recommendations hemodialysis catheter was placed to right procurement internship al jugular vein (07/14). pt to undergo HD today asa and statin consider PFO closure in future when medically st abilized Will d/w attending Dr. Chino Electronically Signed by Sinai Rogers DPM R2 on 0 07/15/20 at 0937 RPT #:[id number] END OF REPORT 2020-07-15 09:28:00-00:[address] [facility] ([facility] Neurology Progress Note REPORT#:[id number] REPORT STATUS: Signed DATE:07/15/20 TIME: 927 PATIENT: JORGE GOINS UNIT #: [id number] ROOM/BED: [address] : [birth year] AGE: 34 SEX: M ATTEND: Luis M Olmedo MD ADM AUTHOR: Sinai Rogers DPM R2 * ALL edits or amendments must be made on the el [employer]/computer document * Sinai Rogers 07/15/2028: Subjective HPI: Per nurse, no acute events. To undergo HD today Review of Systems Unable to obtain due to: medical condition Objective General VS: Last Documented: Result Date Time FiO2 35 07/15 913 O2 Delivery Tracheostomy collar 07/15 913 O2 Flow Rate 5 07/15 913 Temp 37.4 07/15 0800 Pulse Ox 100 07/15 644 B/P 136/61 07/15 644 B/P Mean 86 07/15 644 Pulse 96 07/15 644 Resp 36 07/15 644 PATIENT WEIGHT: Weight (lb): 198 Weight (oz): 10.18 Weight (kg): 90.100 Physical Exam Head/Eyes: atraumatic, normocephalic ENT: moist mucosal membranes Neck: non-tender, no masses or swelling Cardiovascular: irregular rate and rhythm, murmu r Respiratory: decreased breath sounds, intubated/ mech vent Abdomen: non-tender, normal bowel sounds, soft Neuro/RADIOTELEGRAPHIST: Sedated Results Findings/Data: Laboratory Tests 07/15 148 Chemistry Sodium (137 - 145 mmol/L) 159 H Potassium (3.4 - 5.0 mmol/L) 3.5 Chloride (98 - 107 mmol/L) 128 H Carbon Dioxide (22 - 30 mmol/L) 12 L BUN (9 - 20 mg/dL) 89 H Creatinine (0.7 - 1.3 mg/dL) 9.1 H Glomerular Filtr Rate (>60) 9 L Glucose (74 - 106 mg/dL) 100 Calcium (8.4 - 10.2 mg/dL) 8.7 Laboratory Tests 07/14 2002 Coagulation INR 1.3 PT Patient/Control Mix (9.2 - 12.1 SECONDS) 14. 1 H Laboratory Tests 07/15 148 Hematology WBC (5.0 - 12.0 x10 3/uL) 6.5 RBC (4.70 - 6.10 x10 6/uL) 3.03 L Hgb (14.0 - 18.0 g/dL) 8.5 L Hct (37.0 - 49.0 %) 29.5 L MCV (80 - 94 fL) 97 H MCH (27 - 31 pg) 28.1 MCHC (33 - 37 g/dL) 28.8 L RDW (11.5 - 15.5 %) 17.2 H Plt Count (130 - 400 x10 3/uL) 292 MPV (9.4 - 16.4 fL) 10.0 Neut % (Auto) (43 - 65 %) 76.9 H Lymph % (Auto) (20.5 - 45.5 %) 8.0 L Citrus % (Auto) (5.5 - 11.7 %) 5.4 L Eos % (Auto) (0.9 - 2.9 %) 8.2 H Baso % (Auto) (0.2 - 1.0 %) 0.3 Neut # (Auto) (2.2 - 4.8 x10 3/uL) 4.96 H Lymph # (Auto) (1.3 - 2.9 x10 3/uL) 0.52 L Citrus # (Auto) (0.3 - 0.8 x10 3/uL) 0.35 Eos # (Auto) (0.0 - 0.2 x10 3/uL) 0.53 H Baso # (Auto) (0.0 - 0.1 x10 3/uL) 0.02 Immature Gran % (0.0 - 2.0 %) 1.2 Nucleated RBC % (0 - 1.0 %) 0.0 Platelet Estimate (ADEQUATE) ADEQUATE Plt Morphology Comment (NORMAL) NORMAL Polychromasia (NONE SEEN) 2+ H Anisocytosis (NONE SEEN) 1+ H Microcytosis (NONE SEEN) 1+ H Radiology Data: Recent Impressions: RADIOLOGY - XR CHEST 1 V 07/141 Report Impression - Status: SIGNED Entered: 07/15/2020 0012 IMPRESSION: 1. Interval placement of a right IJ approach flores lysis catheter with tip projecting over the right brachiocephalic ve in/SVC junction. 2. No pneumothorax. 3. Stable mild cardiomegaly and mild pulmonary v ascular congestion. Impression By: [email or web address] - Cheli Alfaro MD Diagnosis, Assessment Plan Free Text A P: Assessment 1. Acute encephalopathy - multifactorial - metab olic/hypertensive emergency/ acute stroke 2. Acute ischemic strokes, suspect embolic sourc e, + PFO, b/l lower extremity dopplers negative 3. s/p PEA arrest 06/11/20 4. hypertensive emergency - still requiring akua rdipine drip and antihypertensives being adjusted 5. acute respiratory failure requiring intubatio n 6. complicated type b aortic dissection, in need of extension TEVAR when stable per vascular surgery Plan Severe critical illness myopathy S/p trach and PEG blood pressure control - on cardene drip continue medical management antibiotics per ID recommendations hemodialysis catheter was placed to right procurement internship al jugular vein (07/14). pt to undergo HD today asa and statin consider PFO closure in future when medically st abilized Will d/w attending William Agarwal 07/15/20 1532: Diagnosis, Assessment Plan Free Text A P: agree with above note/ plan by resident Electronically Signed by Sinai Rogers DPM R2 on 0 07/15/20 at 0937 at 1532 RPT #:[id number] END OF REPORT 2020-07-15 08:42:00-00:[address] [facility] ([facility]) Infectious Dis. Progress Note REPORT#:[id number] REPORT STATUS: Signed DATE:07/15/20 TIME: 08 PATIENT: JORGE GOINS UNIT #: [id number] ROOM/BED: [address] : [address] AGE: 34 SEX: M ATTEND: Luis M Olmedo MD ADM AUTHOR: Sofie Freed DPM R3 * ALL edits or amendments must be made on the [employer]/computer document * Subjective Chief Complaint: 07-07-20 INTUBATED UNRESPONSIVE BACTERMIA CVC WAS TAKEN OUT 07-08-2019 BREAHTING FAST UNRESPONSIVE NO FEVER ON THE VENT 07-09-2019 COMFRTABEL TODAY ON THE VENT SEDATED FEVER RENAL FUNCTION NOTED 07-10-2020 MORE AWAKE RESPONDS TO COMMNANDS RENAL FUNCTION NOTED: MAKING 160 M OF URINE SITLL ON THE VENT 07-13-20 no new changes 07-14-20 no overnight events, no fever 07-15-20 HD FOR TODAY Objective General VS/I O: Last Documented: Result Date Time FiO2 35 07/15 0914 O2 Delivery Tracheostomy collar 07/15 913 O2 Flow Rate 5 07/15 0914 Temp 37.4 07/15 0800 Pulse Ox 100 07/15 0645 B/P 136/61 07/15 0645 B/P Mean 86 07/15 0645 Pulse 96 07/15 0645 Resp 36 07/15 0645 Vital Signs Date Temp Pulse Resp B/P B/P Mean Pulse Ox FiO2 07/14-07/15 37.4-38.1 78-104 0-42 123-168/57-76 83-109 89-100 28-40 24 hour I O ending at 0700: 07/15 0700 07/14 1900 Intake Total 2764.00 2644.00 Output Total 2300 2000 Balance 464.00 644.00 Intake, Free 300 Water Intake, IV 1984.00 2164.00 Intake, Tube 480 480 Feeding Output, Stool 1200 1200 Output, Urine 1100 800 Patient 90.1 kg Weight Weight Bed scale Measurement Method PATIENT WEIGHT: Weight (lb): 198 Weight (oz): 10.18 Weight (kg): 90.100 Medications: Active Meds + DC'd Last 24 Hrs Heparin Sodium (Porcine) 5,000 UNIT DIALYSIS-DOS E AFTER MISC Sodium Chloride 1,000 ML ASDIR PRN IV Sodium Bicarbonate 75 MEQ SEE RATE IV (CKD) Dextrose/Water 925 ML Linezolid 600 MG Q12HR FEED-TUBE Clonidine HCl 0.3 MG Q7D TRANSDERM (CKD) Nicardipine HCl 200 ML TITRATE IV Labetalol HCl 10 MG Q6H PRN PRN IV Piperacillin Sod/Tazobactam Sod 3.375 GM Q12HR I V (DC) Sodium Chloride 100 ML Sodium Chloride 1,000 ML .Q8H IV (DC) Acetaminophen 650 MG Q4H PRN PRN FEED-TUBE Isosorbide Mononitrate 30 MG BID FEED-TUBE Potassium Chloride 100 ML ASDIR PRN IV Potassium Bicarbonate/Citric Acid 20 MEQ ASDIR P O (CKD) Potassium Chloride 100 ML ASDIR PRN IV Hydralazine HCl 100 MG Q8HR PO Labetalol HCl 400 MG Q8HR PO Magnesium 100 ML ASDIR PRN IV Magnesium Sulfate 50 ML ASDIR PRN IV Magnesium Sulfate 100 ML ASDIR PRN IV Amlodipine Besylate 5 MG Q12HR PO Aspirin 81 MG DAILY FEED-TUBE Atorvastatin Calcium 40 MG DAILY FEED-TUBE Albuterol/Ipratropium 3 ML RTQ6H INH Dextrose/Water 25 ML ASDIR PRN IV Glucagon 1 MG ASDIR PRN IM Insulin Human Lispro LOW DOSE SCALE ASDIR SUBQ Sterile Water 1 ML ASDIR PRN IM Famotidine 20 MG DAILY PO Heparin Sodium (Porcine) 5,000 UNIT Q12HR SUBQ Physical Exam ENT: TRACH WITH A LOT OF MUCOID SECREIONS Cardiovascular: tachycardia Respiratory: crackles Abdomen: non-tender, soft, no distention, no gua rding, no rebound Genitourinary: zuñiga Skin: dry Diagnosis, Assessment Plan Free Text A P: 07-14-2020 URINE RETNSIN>>> FOLFY BACTRERMIA : MIXED >> REEOLVED PNA: TERATED : IMRPVONG RENAL FAILURE WITH EOSINOPHYLIA ID PLAN: D/C ALL B LACTAMS, AND FINSHE THE JOB W ITH 6 MORE DAY OF LINEZOLID. OK TO USE STEROIDS BY NEPHROLOGY IF IT IS FELT T O BE ISN CAUSED BY B LACTAMS. 07-15-20 BACTEREMIA RESOLVED CONTINUE WITH LINEZOLID X6 DAYS NEPHROLOGY NOTED Electronically Signed by Sofie Freed DPM R3 on at 1003 RPT #:[id number] END OF REPORT 2020-07-15 08:42:00-00:[address] [facility] ([facility]) Infectious Dis. Progress Note REPORT#:[id number] REPORT STATUS: Signed DATE:07/15/20 TIME: 08 PATIENT: JORGE GOINS UNIT #: [id number] ROOM/BED: [place] [address]-A : 86 AGE: 34 SEX: M ATTEND: Luis M Olmedo MD ADM AUTHOR: Sofie Freed DPM R3 * ALL edits or amendments must be made on the el ectronic/computer document * Sofie Freed 07/15/20 0842: Subjective Chief Complaint: 07-07-20 INTUBATED UNRESPONSIVE BACTERMIA CVC WAS TAKEN OUT 07-08-2019 BREAHTING FAST UNRESPONSIVE NO FEVER ON THE VENT 07-09-2019 COMFRTABEL TODAY ON THE VENT SEDATED FEVER RENAL FUNCTION NOTED 07-10-2020 MORE AWAKE RESPONDS TO COMMNANDS RENAL FUNCTION NOTED: MAKING 160 M OF URINE SITLL ON THE VENT 07-13-20 no new changes 07-14-20 no overnight events, no fever 07-15-20 HD FOR TODAY Objective General VS/I O: Last Documented: Result Date Time FiO2 35 07/15 0914 O2 Delivery Tracheostomy collar 07/15 0914 O2 Flow Rate 5 07/15 0914 Temp 37.4 07/15 0800 Pulse Ox 100 07/15 0645 B/P 136/61 07/15 0645 B/P Mean 86 07/15 0645 Pulse 96 07/15 0645 Resp 36 07/15 0645 Vital Signs Date Temp Pulse Resp B/P B/P Mean Pulse Ox FiO2 07/14-07/15 37.4-38.1 78-104 0-42 123-168/57-76 83-109 89-100 28-40 24 hour I O ending at 0700: 07/15 0700 07/14 1900 Intake Total 2764.00 2644.00 Output Total 2300 2000 Balance 464.00 644.00 Intake, Free 300 Water Intake, IV 1984.00 2164.00 Intake, Tube 480 480 Feeding Output, Stool 1200 1200 Output, Urine 1100 800 Patient 90.1 kg Weight Weight Bed scale Measurement Method PATIENT WEIGHT: Weight (lb): 198 Weight (oz): 10.18 Weight (kg): 90.100 Medications: Active Meds + DC'd Last 24 Hrs Heparin Sodium (Porcine) 5,000 UNIT DIALYSIS-DOS E AFTER MISC Sodium Chloride 1,000 ML ASDIR PRN IV Sodium Bicarbonate 75 MEQ SEE RATE IV (CKD) Dextrose/Water 925 ML Linezolid 600 MG Q12HR FEED-TUBE Clonidine HCl 0.3 MG Q7D TRANSDERM (CKD) Nicardipine HCl 200 ML TITRATE IV Labetalol HCl 10 MG Q6H PRN PRN IV Piperacillin Sod/Tazobactam Sod 3.375 GM Q12HR I V (DC) Sodium Chloride 100 ML Sodium Chloride 1,000 ML .Q8H IV (DC) Acetaminophen 650 MG Q4H PRN PRN FEED-TUBE Isosorbide Mononitrate 30 MG BID FEED-TUBE Potassium Chloride 100 ML ASDIR PRN IV Potassium Bicarbonate/Citric Acid 20 MEQ ASDIR P O (CKD) Potassium Chloride 100 ML ASDIR PRN IV Hydralazine HCl 100 MG Q8HR PO Labetalol HCl 400 MG Q8HR PO Magnesium 100 ML ASDIR PRN IV Magnesium Sulfate 50 ML ASDIR PRN IV Magnesium Sulfate 100 ML ASDIR PRN IV Amlodipine Besylate 5 MG Q12HR PO Aspirin 81 MG DAILY FEED-TUBE Atorvastatin Calcium 40 MG DAILY FEED-TUBE Albuterol/Ipratropium 3 ML RTQ6H INH Dextrose/Water 25 ML ASDIR PRN IV Glucagon 1 MG ASDIR PRN IM Insulin Human Lispro LOW DOSE SCALE ASDIR SUBQ Sterile Water 1 ML ASDIR PRN IM Famotidine 20 MG DAILY PO Heparin Sodium (Porcine) 5,000 UNIT Q12HR SUBQ Physical Exam ENT: TRACH WITH A LOT OF MUCOID SECREIONS Cardiovascular: tachycardia Respiratory: crackles Abdomen: non-tender, soft, no distention, no gua rding, no rebound Genitourinary: zuñiga Skin: dry Diagnosis, Assessment Plan Free Text A P: 07-14-2020 URINE RETNSIN>>> FOLFY BACTRERMIA : MIXED >> REEOLVED PNA: TERATED : IMRPVONG RENAL FAILURE WITH EOSINOPHYLIA ID PLAN: D/C ALL B LACTAMS, AND FINSHE THE JOB W ITH 6 MORE DAY OF LINEZOLID. OK TO USE STEROIDS BY NEPHROLOGY IF IT IS FELT T O BE ISN CAUSED BY B LACTAMS. 07-15-20 BACTEREMIA RESOLVED CONTINUE WITH LINEZOLID X6 DAYS NEPHROLOGY NOTED Faby Blanchard 07/16/20 0814: Attestations Physician Attestation Agree w/findings plan: Agree with the findings and plan as documented b y [insert LAISHA name]; * my personal evaluation is [ ] Electronically Signed by Sofie Freed DPM on at 1003 RPT #:[id number] END OF REPORT 2020-07-15 08:42:00-00:[address] [facility] ([facility]) Infectious Dis. Progress Note REPORT#:[id number] REPORT STATUS: Signed DATE:07/15/20 TIME: 0842 PATIENT: JORGE GOINS UNIT #: [id number] ROOM/BED: [place] [address]-A : 86 AGE: 34 SEX: M ATTEND: Luis M Olmedo MD ADM AUTHOR: Sofie Freed DPM R3 * ALL edits or amendments must be made on the el ect[employer]/computer document * Sofie Freed 07/15/20 0842: Subjective Chief Complaint: 07-07-20 INTUBATED UNRESPONSIVE BACTERMIA CVC WAS TAKEN OUT 07-08-2019 BREAHTING FAST UNRESPONSIVE NO FEVER ON THE VENT 07-09-2019 COMFRTABEL TODAY ON THE VENT SEDATED FEVER RENAL FUNCTION NOTED 07-10-2020 MORE AWAKE RESPONDS TO COMMNANDS RENAL FUNCTION NOTED: MAKING 160 M OF URINE SITLL ON THE VENT 07-13-20 no new changes 07-14-20 no overnight events, no fever 07-15-20 HD FOR TODAY Objective General VS/I O: Last Documented: Result Date Time FiO2 35 07/15 0914 O2 Delivery Tracheostomy collar 07/15 0914 O2 Flow Rate 5 07/15 0914 Temp 37.4 07/15 0800 Pulse Ox 100 07/15 0645 B/P 136/61 07/15 0645 B/P Mean 86 07/15 0645 Pulse 96 07/15 0645 Resp 36 07/15 0645 Vital Signs Date Temp Pulse Resp B/P B/P Mean Pulse Ox FiO2 07/14-07/15 37.4-38.1 78-104 0-42 123-168/57-76 83-109 89-100 28-40 24 hour I O ending at 0700: 07/15 0700 07/14 1900 Intake Total 2764.00 2644.00 Output Total 2300 2000 Balance 464.00 644.00 Intake, Free 300 Water Intake, IV 1984.00 2164.00 Intake, Tube 480 480 Feeding Output, Stool 1200 1200 Output, Urine 1100 800 Patient 90.1 kg Weight Weight Bed scale Measurement Method PATIENT WEIGHT: Weight (lb): 198 Weight (oz): 10.18 Weight (kg): 90.100 Medications: Active Meds + DC'd Last 24 Hrs Heparin Sodium (Porcine) 5,000 UNIT DIALYSIS-DOS E AFTER MISC Sodium Chloride 1,000 ML ASDIR PRN IV Sodium Bicarbonate 75 MEQ SEE RATE IV (CKD) Dextrose/Water 925 ML Linezolid 600 MG Q12HR FEED-TUBE Clonidine HCl 0.3 MG Q7D TRANSDERM (CKD) Nicardipine HCl 200 ML TITRATE IV Labetalol HCl 10 MG Q6H PRN PRN IV Piperacillin Sod/Tazobactam Sod 3.375 GM Q12HR I V (DC) Sodium Chloride 100 ML Sodium Chloride 1,000 ML .Q8H IV (DC) Acetaminophen 650 MG Q4H PRN PRN FEED-TUBE Isosorbide Mononitrate 30 MG BID FEED-TUBE Potassium Chloride 100 ML ASDIR PRN IV Potassium Bicarbonate/Citric Acid 20 MEQ ASDIR P O (CKD) Potassium Chloride 100 ML ASDIR PRN IV Hydralazine HCl 100 MG Q8HR PO Labetalol HCl 400 MG Q8HR PO Magnesium 100 ML ASDIR PRN IV Magnesium Sulfate 50 ML ASDIR PRN IV Magnesium Sulfate 100 ML ASDIR PRN IV Amlodipine Besylate 5 MG Q12HR PO Aspirin 81 MG DAILY FEED-TUBE Atorvastatin Calcium 40 MG DAILY FEED-TUBE Albuterol/Ipratropium 3 ML RTQ6H INH Dextrose/Water 25 ML ASDIR PRN IV Glucagon 1 MG ASDIR PRN IM Insulin Human Lispro LOW DOSE SCALE ASDIR SUBQ Sterile Water 1 ML ASDIR PRN IM Famotidine 20 MG DAILY PO Heparin Sodium (Porcine) 5,000 UNIT Q12HR SUBQ Physical Exam ENT: TRACH WITH A LOT OF MUCOID SECREIONS Cardiovascular: tachycardia Respiratory: crackles Abdomen: non-tender, soft, no distention, no gua rding, no rebound Genitourinary: zuñiga Skin: dry Diagnosis, Assessment Plan Free Text A P: 07-14-2020 URINE RETNSIN>>> FOLFY BACTRERMIA : MIXED >> REEOLVED PNA: TERATED : IMRPVONG RENAL FAILURE WITH EOSINOPHYLIA ID PLAN: D/C ALL B LACTAMS, AND FINSHE THE JOB W ITH 6 MORE DAY OF LINEZOLID. OK TO USE STEROIDS BY NEPHROLOGY IF IT IS FELT T O BE ISN CAUSED BY B LACTAMS. 07-15-20 BACTEREMIA RESOLVED CONTINUE WITH LINEZOLID X6 DAYS NEPHROLOGY NOTED Faby Blanchard 07/16/20 0814: Attestations Physician Attestation Agree w/findings plan: Agree with the findings and plan as documented b y [insert LAISHA name]; * my personal evaluation is [ ] Electronically Signed by Sofie Freed DPM R3 on at 1003 RPT #:[id number] END OF REPORT 2020-07-15 08:42:00-00:[address] [facility] ([facility]) Infectious Dis. Progress Note REPORT#:[id number] REPORT STATUS: Signed DATE:07/15/20 TIME: 08 PATIENT: JORGE GOINS UNIT #: [id number] ROOM/BED: [address] : [birth year] AGE: 34 SEX: M ATTEND: Luis M Olmedo MD ADM AUTHOR: Sofie Freed DPM R3 * ALL edits or amendments must be made on the [employer]/computer document * Sofie Freed 07/15/20 0842: Subjective Chief Complaint: 07-07-20 INTUBATED UNRESPONSIVE BACTERMIA CVC WAS TAKEN OUT 07-08-2019 BREAHTING FAST UNRESPONSIVE NO FEVER ON THE VENT 07-09-2019 COMFRTABEL TODAY ON THE VENT SEDATED FEVER RENAL FUNCTION NOTED 07-10-2020 MORE AWAKE RESPONDS TO COMMNANDS RENAL FUNCTION NOTED: MAKING 160 M OF URINE SITLL ON THE VENT 07-13-20 no new changes 07-14-20 no overnight events, no fever 07-15-20 HD FOR TODAY Objective General VS/I O: Last Documented: Result Date Time FiO2 35 07/15 0914 O2 Delivery Tracheostomy collar 07/15 0914 O2 Flow Rate 5 07/15 0914 Temp 37.4 07/15 0800 Pulse Ox 100 07/15 0645 B/P 136/61 07/15 0645 B/P Mean 86 07/15 0645 Pulse 96 07/15 0645 Resp 36 07/15 0645 Vital Signs Date Temp Pulse Resp B/P B/P Mean Pulse Ox FiO2 07/14-07/15 37.4-38.1 78-104 0-42 123-168/57-76 83-109 89-100 28-40 24 hour I O ending at 0700: 07/15 0700 07/14 1900 Intake Total 2764.00 2644.00 Output Total 2300 2000 Balance 464.00 644.00 Intake, Free 300 Water Intake, IV 1984.00 2164.00 Intake, Tube 480 480 Feeding Output, Stool 1200 1200 Output, Urine 1100 800 Patient 90.1 kg Weight Weight Bed scale Measurement Method PATIENT WEIGHT: Weight (lb): 198 Weight (oz): 10.18 Weight (kg): 90.100 Medications: Active Meds + DC'd Last 24 Hrs Heparin Sodium (Porcine) 5,000 UNIT DIALYSIS-DOS E AFTER MISC Sodium Chloride 1,000 ML ASDIR PRN IV Sodium Bicarbonate 75 MEQ SEE RATE IV (CKD) Dextrose/Water 925 ML Linezolid 600 MG Q12HR FEED-TUBE Clonidine HCl 0.3 MG Q7D TRANSDERM (CKD) Nicardipine HCl 200 ML TITRATE IV Labetalol HCl 10 MG Q6H PRN PRN IV Piperacillin Sod/Tazobactam Sod 3.375 GM Q12HR I V (DC) Sodium Chloride 100 ML Sodium Chloride 1,000 ML .Q8H IV (DC) Acetaminophen 650 MG Q4H PRN PRN FEED-TUBE Isosorbide Mononitrate 30 MG BID FEED-TUBE Potassium Chloride 100 ML ASDIR PRN IV Potassium Bicarbonate/Citric Acid 20 MEQ ASDIR P O (CKD) Potassium Chloride 100 ML ASDIR PRN IV Hydralazine HCl 100 MG Q8HR PO Labetalol HCl 400 MG Q8HR PO Magnesium 100 ML ASDIR PRN IV Magnesium Sulfate 50 ML ASDIR PRN IV Magnesium Sulfate 100 ML ASDIR PRN IV Amlodipine Besylate 5 MG Q12HR PO Aspirin 81 MG DAILY FEED-TUBE Atorvastatin Calcium 40 MG DAILY FEED-TUBE Albuterol/Ipratropium 3 ML RTQ6H INH Dextrose/Water 25 ML ASDIR PRN IV Glucagon 1 MG ASDIR PRN IM Insulin Human Lispro LOW DOSE SCALE ASDIR SUBQ Sterile Water 1 ML ASDIR PRN IM Famotidine 20 MG DAILY PO Heparin Sodium (Porcine) 5,000 UNIT Q12HR SUBQ Physical Exam ENT: TRACH WITH A LOT OF MUCOID SECREIONS Cardiovascular: tachycardia Respiratory: crackles Abdomen: non-tender, soft, no distention, no gua rding, no rebound Genitourinary: zuñiga Skin: dry Diagnosis, Assessment Plan Free Text A P: 07-14-2020 URINE RETNSIN>>> FOLFY BACTRERMIA : MIXED >> REEOLVED PNA: TERATED : IMRPVONG RENAL FAILURE WITH EOSINOPHYLIA ID PLAN: D/C ALL B LACTAMS, AND FINSHE THE JOB W ITH 6 MORE DAY OF LINEZOLID. OK TO USE STEROIDS BY NEPHROLOGY IF IT IS FELT T O BE ISN CAUSED BY B LACTAMS. 07-15-20 BACTEREMIA RESOLVED CONTINUE WITH LINEZOLID X6 DAYS NEPHROLOGY NOTED Faby Blanchard 07/16/20 0814: Attestations Physician Attestation Agree w/findings plan: Agree with the findings and plan as documented b y [insert LAISHA name]; * my personal evaluation is [ ] Electronically Signed by Sofie Freed DPM R3 on at 1003 RPT #:[id number] END OF REPORT 2020-07-15 08:42:00-00:[address] [facility] ([facility]) Infectious Dis. Progress Note REPORT#:[id number] REPORT STATUS: Signed DATE:07/15/20 TIME: 841 PATIENT: JORGE GOINS UNIT #: [id number] ROOM/BED: [address] : 86 AGE: 34 SEX: M ATTEND: Luis M Olmedo MD ADM AUTHOR: Sofie Freed DPM R3 * ALL edits or amendments must be made on the el [employer]/computer document * Sofie Freed 07/15/20 0842: Subjective Chief Complaint: 07-07-20 INTUBATED UNRESPONSIVE BACTERMIA CVC WAS TAKEN OUT 07-08-2019 BREAHTING FAST UNRESPONSIVE NO FEVER ON THE VENT 07-09-2019 COMFRTABEL TODAY ON THE VENT SEDATED FEVER RENAL FUNCTION NOTED 07-10-2020 MORE AWAKE RESPONDS TO COMMNANDS RENAL FUNCTION NOTED: MAKING 160 M OF URINE SITLL ON THE VENT 07-13-20 no new changes 07-14-20 no overnight events, no fever 07-15-20 HD FOR TODAY Objective General VS/I O: Last Documented: Result Date Time FiO2 35 07/15 0914 O2 Delivery Tracheostomy collar 07/15 0914 O2 Flow Rate 5 07/15 0914 Temp 37.4 07/15 0800 Pulse Ox 100 07/15 0645 B/P 136/61 07/15 0645 B/P Mean 86 07/15 0645 Pulse 96 07/15 0645 Resp 36 07/15 0645 Vital Signs Date Temp Pulse Resp B/P B/P Mean Pulse Ox FiO2 07/14-07/15 37.4-38.1 78-104 0-42 123-168/57-76 83-109 89-100 28-40 24 hour I O ending at 0700: 07/15 0700 07/14 1900 Intake Total 2764.00 2644.00 Output Total 2300 2000 Balance 464.00 644.00 Intake, Free 300 Water Intake, IV 1984.00 2164.00 Intake, Tube 480 480 Feeding Output, Stool 1200 1200 Output, Urine 1100 800 Patient 90.1 kg Weight Weight Bed scale Measurement Method PATIENT WEIGHT: Weight (lb): 198 Weight (oz): 10.18 Weight (kg): 90.100 Medications: Active Meds + DC'd Last 24 Hrs Heparin Sodium (Porcine) 5,000 UNIT DIALYSIS-DOS E AFTER MISC Sodium Chloride 1,000 ML ASDIR PRN IV Sodium Bicarbonate 75 MEQ SEE RATE IV (CKD) Dextrose/Water 925 ML Linezolid 600 MG Q12HR FEED-TUBE Clonidine HCl 0.3 MG Q7D TRANSDERM (CKD) Nicardipine HCl 200 ML TITRATE IV Labetalol HCl 10 MG Q6H PRN PRN IV Piperacillin Sod/Tazobactam Sod 3.375 GM Q12HR I V (DC) Sodium Chloride 100 ML Sodium Chloride 1,000 ML .Q8H IV (DC) Acetaminophen 650 MG Q4H PRN PRN FEED-TUBE Isosorbide Mononitrate 30 MG BID FEED-TUBE Potassium Chloride 100 ML ASDIR PRN IV Potassium Bicarbonate/Citric Acid 20 MEQ ASDIR P O (CKD) Potassium Chloride 100 ML ASDIR PRN IV Hydralazine HCl 100 MG Q8HR PO Labetalol HCl 400 MG Q8HR PO Magnesium 100 ML ASDIR PRN IV Magnesium Sulfate 50 ML ASDIR PRN IV Magnesium Sulfate 100 ML ASDIR PRN IV Amlodipine Besylate 5 MG Q12HR PO Aspirin 81 MG DAILY FEED-TUBE Atorvastatin Calcium 40 MG DAILY FEED-TUBE Albuterol/Ipratropium 3 ML RTQ6H INH Dextrose/Water 25 ML ASDIR PRN IV Glucagon 1 MG ASDIR PRN IM Insulin Human Lispro LOW DOSE SCALE ASDIR SUBQ Sterile Water 1 ML ASDIR PRN IM Famotidine 20 MG DAILY PO Heparin Sodium (Porcine) 5,000 UNIT Q12HR SUBQ Physical Exam ENT: TRACH WITH A LOT OF MUCOID SECREIONS Cardiovascular: tachycardia Respiratory: crackles Abdomen: non-tender, soft, no distention, no gua rding, no rebound Genitourinary: zuñiga Skin: dry Diagnosis, Assessment Plan Free Text A P: 07-14-2020 URINE RETNSIN>>> FOLFY BACTRERMIA : MIXED >> REEOLVED PNA: TERATED : IMRPVONG RENAL FAILURE WITH EOSINOPHYLIA ID PLAN: D/C ALL B LACTAMS, AND FINSHE THE JOB W ITH 6 MORE DAY OF LINEZOLID. OK TO USE STEROIDS BY NEPHROLOGY IF IT IS FELT T O BE ISN CAUSED BY B LACTAMS. 07-15-20 BACTEREMIA RESOLVED CONTINUE WITH LINEZOLID X6 DAYS NEPHROLOGY NOTED Faby Blanchard 07/16/20 0814: Attestations Physician Attestation Agree w/findings plan: Agree with the findings and plan as documented b y [insert LAISHA name]; * my personal evaluation is [ ] Electronically Signed by Sofie Freed DPM R3 on at 1003 Electronically Signed by Faby Blanchard MD on 0 07/16/20 at 0814 RPT #:[id number] END OF REPORT 2020-07-15 06:14:00-00:00 [facility] Critical Care Progress Note REPORT#:[id number] REPORT STATUS: Signed DATE:07/15/20 TIME: 613 PATIENT: JORGE GOINS UNIT #: [id number] ROOM/BED: [address] : 86 AGE: 34 SEX: M ATTEND: Luis M Olmedo MD ADM AUTHOR: Edy Olmedo MD * ALL edits or amendments must be made on the el [employer]/computer document * Subjective Chief Complaint: Altered mental status Comments: 07/14/2019 Objective Physical Exam Head/Eyes: atraumatic, normocephalic Cardiovascular: normal heart sounds, normal S1 S 2, normal rate and rhythm Respiratory/Chest: aerating well, clear to auscu ltation Abdomen: soft, non-tender, normal bowel sounds, no distention Extremities: no edema Neuro/RADIOTELEGRAPHIST: disoriented Diagnosis, Assessment Plan Free text A P: 34 year old male with history of aortic dissecti on s/p EVAR came in for hypertensive urgency A/P: Neuro -MRI multiple ischemic cva Neuro status slowly improving More awake. Starting to track and follow command s intermittently #AMS as above Pulm -s/p trach On TC CV #s/p Cardiac Arrest - PEA hypotensive. ROSC achieved after 9 minutes - likely from cardiogenic shock EF 30-34% - Aortic dissection ruled out from CTA chest , a bdomen and pelvis #hx of EVAR for aortic dissection and h/o endole ak in the past - per vascular surgery -uncontrolled hypertension resume cardne keep systoli cBP around 140 # Fever abx GI on tube feeidng Renal Acute renal failure IV fluid May need HD d/w Renal gi ppx: pepcid dvt ppx: heparin Diet: tube feeds condition critical prognosis guarded Electronically Signed by Edy Olmedo MD on at 0616 RPT #:[id number] END OF REPORT 2020-07-14 23:27:00-00:[address] [facility] ([facility]) Bedside Post Proc - Full REPORT#:[id number] REPORT STATUS: Signed DATE:07/14/20 TIME: 2326 PATIENT: JORGE GOINS UNIT #: [id number] ROOM/BED: [address] : [birth year] AGE: 34 SEX: M ATTEND: Luis M Olmedo MD ADM AUTHOR: Paresh Pavon BRAZING MACHINE TENDER * ALL edits or amendments must be made on the el [employer]/computer document * Bedside Procedure Note Bedside Procedure Note Start date: 07/14/20 Start time: 2309 End time: 2324 Pre-procedure diagnosis: JENNIFER Post-procedure diagnosis: JENNIFER Procedure performed: dialysis catheter Performed by: Paresh Pavon NP Commercial Stripper(s): none Time out completed: Yes Consent obtained: yes Anesthesia: local - lidocaine Technique/Procedure: Location: [x] Right or [] Left [x] Internal Jugu lar [] Subclavian [] Femoral Indication: [x] Hemodialysis [] Plasmapheresis Consent: Consent was obtained prior to the proce dure. Procedure summary: A time ou t was performed and the patient's right [x] neck [] subclavian [] femoral region was prepped and ronaldo ped in sterile fashion using chlorhexadine scrub. Anesthesia was achi eved with [x] 1% lidocaine [] fentanyl drip [] versed drip [] propofol drip. The right [x] internal jugular [] subclavian [] femoral vein was accessed under ul trasound guidance. The needle was inserted with positive venous blo od return. A guide wire was advanced through the needle. The needle was removed. A small incision was made with a 10 blade scalpel. The two dilators were a dvanced over the guide wire until appropriate dilation was made. The dilator was removed from the guide wire and a 11.5 [place] 16 cm double lumen dialysis access catheter was advanced over the guide wire. The guide wire exited the distal port and was subsequently removed. Ca ps were placed on both ports. All ports were aspirated wit h positive blood return and flushed properly without resistance. The catheter was secured with suture s. The insertion site was cleansed with chlorhexadine. A sterile biopatch and tegaderm applied to insertion site. Post-procedu re portable x-ray has been ordered to verify correct position. Complications: [x] None [] Pneumothroax [] Hemopneumothorax [] Hemorrhage [] Air embolism Specimens removed/altered: none Implant(s): none Complications: none Estimated blood loss in ml's: none Findings: none Electronically Signed by Paresh Pavon NP o n 07/15/20 at 0414 RPT #:[id number] END OF REPORT 2020-07-14 20:49:00-00:00 [facility] Nephrology Progress Note REPORT#:[id number] REPORT STATUS: Signed DATE:07/14/20 TIME: 2048 PATIENT: JORGE GOINS UNIT #: [id number] ROOM/BED: [facility] : 86 AGE: 34 SEX: M ATTEND: Raphael Davila MD ADM AUTHOR: Jojo York MD * ALL edits or amendments must be made on the el [employer]/computer document * Objective General VS/I O: Vital Signs: Date Time Temp Pulse Resp B/P B/P Pulse O2 O2 Fl ow FiO2 Mean Ox Delivery Rate 07/14 2020 100 5 28 Tracheostomy collar 07/14 1999 35 Tracheostomy collar 07/14 1999 100.6 35 Tracheostomy collar 07/14 1845 94 28 151/67 96 100 07/14 1730 94 26 153/64 92 100 07/14 1715 92 23 154/64 92 100 07/14 1645 92 31 132/60 87 100 07/14 1630 90 29 141/64 92 100 07/14 1628 99.4 07/14 1545 93 32 132/59 85 100 07/14 1530 91 31 123/58 83 100 07/14 1515 91 31 136/60 87 100 07/14 1457 40 Tracheostomy collar 07/14 1445 90 25 147/63 90 100 07/14 1345 92 27 143/63 90 100 07/14 1300 92 27 144/63 91 100 07/14 1200 100.0 07/14 1145 96 25 135/58 88 100 07/14 1100 95 29 136/61 88 100 07/14 1045 93 32 123/59 84 100 07/14 1030 97 32 131/58 83 100 07/14 1000 93 31 144/60 86 100 07/14 0945 93 27 145/64 92 100 07/14 0930 96 27 147/60 87 100 07/14 0915 96 28 152/64 92 100 07/14 0907 100 8 35 Tracheostomy collar 07/14 0900 94 28 150/63 91 100 07/14 0845 93 28 150/63 91 100 07/14 0830 91 22 151/63 91 100 07/14 0815 95 30 155/66 95 100 07/14 0800 95 37 152/64 92 100 07/14 0751 98.3 07/14 0745 91 11 142/56 89 100 07/14 0730 93 26 149/65 94 100 07/14 0715 94 30 147/65 93 100 01/19 0700 86 28 145/61 88 100 01/19 0645 85 28 142/63 91 100 01/19 0630 86 17 148/65 94 99 01/19 0615 85 28 140/63 90 99 01/19 0600 88 26 138/59 85 100 01/19 0545 90 15 144/63 91 100 01/19 0530 92 25 138/61 88 100 01/19 0515 91 26 134/63 88 100 01/19 0500 96 24 116/58 83 100 01/19 0445 93 25 137/61 88 100 01/19 0430 78 28 149/64 92 100 01/19 0424 90 24 146/65 93 100 01/19 0400 98.5 35 Tracheostomy collar 07/14 0400 82 30 155/67 96 100 01/19 0345 84 28 154/69 99 100 01/19 0330 75 26 149/63 94 100 01/19 0315 87 27 152/70 100 100 01/19 0300 87 26 142/64 92 100 01/19 0245 90 28 153/67 96 100 01/19 0230 93 27 150/66 95 100 01/19 0215 81 30 145/59 91 100 01/19 0200 87 26 152/68 98 100 01/19 0145 81 27 148/67 97 01/19 0130 75 28 142/62 91 01/19 0115 88 27 145/69 97 90 01/19 0100 87 26 141/68 95 90 01/19 0045 94 31 116/56 80 84 01/19 0030 88 24 141/63 91 100 01/19 0015 91 26 138/59 85 100 / 0000 98.8 35 Tracheostomy collar 07/14 0000 92 11 145/62 89 100 /18 2345 86 23 144/65 93 100 / 2330 90 29 137/58 84 100 /18 2315 90 25 138/61 88 100 /18 2300 90 10 132/59 85 100 / 2245 90 25 130/61 88 100 07/13 2230 88 25 137/57 87 100 /18 2215 89 18 135/63 90 100 07/13 2200 88 27 140/63 90 95 07/13 2145 88 29 136/59 85 98 07/13 2130 89 27 131/58 84 100 07/13 2125 100 8 35 Tracheostomy collar 01/18 2115 88 30 140/57 89 100 07/13 2100 90 27 150/65 94 100 24 hour I O ending at 0700: 07/14 0700 07/13 1900 Intake Total 2910.00 2224.00 Output Total 1400 1000 Balance 1510.00 1224.00 Intake, Free 300 Water Intake, IV 2230.00 1864.00 Intake, Tube 380 360 Feeding Output, Stool 600 900 Output, Urine 800 100 Patient 88.8 kg Weight Weight Bed scale Measurement Method Medications Active Meds + DC'd Last 24 Hrs Sodium Bicarbonate 75 MEQ SEE RATE IV (CKD) Dextrose/Water 925 ML Linezolid 600 MG Q12HR FEED-TUBE Clonidine HCl 0.3 MG Q7D TRANSDERM (CKD) Nicardipine HCl 200 ML TITRATE IV Labetalol HCl 10 MG Q6H PRN PRN IV Piperacillin Sod/Tazobactam Sod 3.375 GM Q12HR I V (DC) Sodium Chloride 100 ML Sodium Chloride 1,000 ML .Q8H IV (DC) Acetaminophen 650 MG Q4H PRN PRN FEED-TUBE Isosorbide Mononitrate 30 MG BID FEED-TUBE Potassium Chloride 100 ML ASDIR PRN IV Potassium Bicarbonate/Citric Acid 20 MEQ ASDIR P O (CKD) Potassium Chloride 100 ML ASDIR PRN IV Hydralazine HCl 100 MG Q8HR PO Labetalol HCl 400 MG Q8HR PO Magnesium 100 ML ASDIR PRN IV Magnesium Sulfate 50 ML ASDIR PRN IV Magnesium Sulfate 100 ML ASDIR PRN IV Amlodipine Besylate 5 MG Q12HR PO Aspirin 81 MG DAILY FEED-TUBE Atorvastatin Calcium 40 MG DAILY FEED-TUBE Albuterol/Ipratropium 3 ML RTQ6H INH Dextrose/Water 25 ML ASDIR PRN IV Glucagon 1 MG ASDIR PRN IM Insulin Human Lispro LOW DOSE SCALE ASDIR SUBQ Sterile Water 1 ML ASDIR PRN IM Famotidine 20 MG DAILY PO Heparin Sodium (Porcine) 5,000 UNIT Q12HR SUBQ Physical Exam General appearance: no acute distress Head/eyes: normal conjunctiva/sclera Neck: trach in place Respiratory: symmetric expansion Genitourinary: zuñiga, urine (appears pink) Extremities: pedal edema improved Musculoskeletal: normal inspection Neuro/RADIOTELEGRAPHIST: SEDATED Hemodialysis access: Type: vascath Psychiatry: unable to evaluate Results Findings/Data: Laboratory Tests 07/144 0142 8 Chemistry Sodium (137 - 145 mmol/L) 157 H Potassium (3.4 - 5.0 mmol/L) 3.6 Chloride (98 - 107 mmol/L) 126 H Carbon Dioxide (22 - 30 mmol/L) 10 L BUN (9 - 20 mg/dL) 91 H Creatinine (0.7 - 1.3 mg/dL) 8.4 H Glomerular Filtr Rate (>60) 10 L Glucose (74 - 106 mg/dL) 73 L POC Glucose (74 - 106 MG/DL) 77 74 Calcium (8.4 - 10.2 mg/dL) 8.5 Laboratory Tests 07/14 0154 Hematology WBC (5.0 - 12.0 x10 3/uL) 6.4 RBC (4.70 - 6.10 x10 6/uL) 2.98 L Hgb (14.0 - 18.0 g/dL) 8.3 L Hct (37.0 - 49.0 %) 28.9 L MCV (80 - 94 fL) 97 H MCH (27 - 31 pg) 27.9 MCHC (33 - 37 g/dL) 28.7 L RDW (11.5 - 15.5 %) 17.2 H Plt Count (130 - 400 x10 3/uL) 324 MPV (9.4 - 16.4 fL) 10.3 Neut % (Auto) (43 - 65 %) 73.2 H Lymph % (Auto) (20.5 - 45.5 %) 7.6 L Citrus % (Auto) (5.5 - 11.7 %) 7.2 Eos % (Auto) (0.9 - 2.9 %) 9.3 H Baso % (Auto) (0.2 - 1.0 %) 0.3 Neut # (Auto) (2.2 - 4.8 x10 3/uL) 4.65 Lymph # (Auto) (1.3 - 2.9 x10 3/uL) 0.48 L Citrus # (Auto) (0.3 - 0.8 x10 3/uL) 0.46 Eos # (Auto) (0.0 - 0.2 x10 3/uL) 0.59 H Baso # (Auto) (0.0 - 0.1 x10 3/uL) 0.02 Immature Gran % (0.0 - 2.0 %) 2.4 H Nucleated RBC % (0 - 1.0 %) 0.0 Platelet Estimate (ADEQUATE) ADEQUATE Plt Morphology Comment (NORMAL) LARGE PLATELETS SEEN Polychromasia (NONE SEEN) 1+ H Poikilocytosis (NONE SEEN) 1+ H Anisocytosis (NONE SEEN) 1+ H Diagnosis, Assessment Plan Free Text A P: JENNIFER hypotension AAA lactic acidosis severe metabolic acidosis- resolved Metabolic alkalosis - resolved UO remains poor likely in atn continue with ivf will need hd in next 24 hours if no improvement spoke with nurse at 1517 RPT #:[id number] END OF REPORT 2020-07-14 15:30:00-00:[address] [facility] ([facility]) Cardiology Progress Note REPORT#:[id number] REPORT STATUS: Signed DATE:07/14/20 TIME: 1530 PATIENT: JORGE GOINS UNIT #: [id number] ROOM/BED: [address] : [birth year] AGE: 34 SEX: M ATTEND: Luis M Olmedo MD ADM AUTHOR: Giancarlo Phan MD * ALL edits or amendments must be made on the el [employer]/computer document * Subjective Free Text Subj Notes Free Text Subj Notes: No changes Objective Physical Exam Head/Eyes: atraumatic, normocephalic ENT: moist mucosal membranes, normal nose Neck: non-tender, supple/no meningismus, traches otomy prsent Cardiovascular: CV assessment: regular rate and rhythm, no murm ur Respiratory: no distress, coarse breathsounds, m echanically ventialted Abdomen: soft, non-tender Upper extremity: UE assessment: normal capillary refill, normal temperature Lower extremity: LE assessment: normal capillary refill, normal temperature, no edema Musculoskeletal: normal inspection Neuro/RADIOTELEGRAPHIST: vented via trachesotomy, not followin g commands Diagnosis, Assessment Plan Free Text DxA P Notes Free Text DxA P Notes: 1. Hypertensive urgency/emergency - presented with severely elevated BP requiring 2 IV infusions, subsequently suffered PEA cardiac arrest - BP control improving - cont hydralazine 100mg Q8H, labetalol 400mg Q 8H, clonidine patch has been increased to 0.3 - norvasc 5mg PO BID and ISMN 30mg BID - increase losartan to 50mg QD 2. Cardiac arrest - PEA in etiology, pt became hypothermic and sub sequently bradycardic 3. Type B aortic dissection s/p EVAR - has residual descending aortic dissect ion extending into iliacs. No evidence of rupture on CTA. Reviewed by vascular surgery - appreciate assitance - optimal BP Control as above 4. Acute on chronic systolic heart failure - likely hypertensive heart disease due to long standing elevated BP - warm and well perfused on examination - cont lasix gtt 5. Shock - resolved 6. JENNIFER on CKD stage 3 - improved - likely secondary to fluctuation in BP - nephrology following, appreciate recommendatio ns - monitor UOP 7. Acute hypoxic respiratory failure - now has tracheostomy- per ICU team 8. Stroke: - CT head and MRI with evidence of prior CVA - TTE with possible PFO - m continue to monitor for further neurologic improvement. I believe given patient's overall c ondition would like to see significant improvement. Will follow. Please call if questions. [facility] Cardiology Electronically Signed by Giancarlo Phan MD on 06/26 03/16 at 1531 RPT #:[id number] END OF REPORT 2020-07-14 10:29:00-00:[address] [facility] ([facility]) Infectious Dis. Progress Note REPORT#:[id number] REPORT STATUS: Signed DATE:07/14/20 TIME: 1029 PATIENT: JORGE GOINS UNIT #: [id number] ROOM/BED: [address] : [birth year] AGE: 34 SEX: M ATTEND: Luis M Olmedo MD ADM AUTHOR: Sofie Freed DPM R3 * ALL edits or amendments must be made on the el [employer]/computer document * Subjective Chief Complaint: 07-07-20 INTUBATED UNRESPONSIVE BACTERMIA CVC WAS TAKEN OUT 07-08-2019 BREAHTING FAST UNRESPONSIVE NO FEVER ON THE VENT 07-09-2019 COMFRTABEL TODAY ON THE VENT SEDATED FEVER RENAL FUNCTION NOTED 07-10-2020 MORE AWAKE RESPONDS TO COMMNANDS RENAL FUNCTION NOTED: MAKING 160 M OF URINE SITLL ON THE VENT 07-13-20 no new changes 07-14-20 no overnight events, no fever Objective General VS/I O: Last Documented: Result Date Time Temp 36.8 07/14 0751 Pulse Ox 100 07/14 0700 B/P 145/61 07/14 0700 B/P Mean 88 07/14 0700 Pulse 86 07/14 0700 Resp 28 07/14 0700 FiO2 35 07/14 0400 O2 Delivery Tracheostomy collar 07/14 0400 O2 Flow Rate 8 07/13 2126 Vital Signs Date Temp Pulse Resp B/P B/P Mean Pulse Ox FiO2 07/13-07/14 36.7-37.1 69-96 5-33 116-155/56-71 80-102 80-100 35 24 hour I O ending at 0700: 07/14 0700 07/13 1900 Intake Total 2910.00 2224.00 Output Total 1400 1000 Balance 1510.00 1224.00 Intake, Free 300 Water Intake, IV 2230.00 1864.00 Intake, Tube 380 360 Feeding Output, Stool 600 900 Output, Urine 800 100 Patient 88.8 kg Weight Weight Bed scale Measurement Method PATIENT WEIGHT: Weight (lb): 195 Weight (oz): 12.33 Weight (kg): 88.800 Medications: Active Meds + DC'd Last 24 Hrs Clonidine HCl 0.3 MG Q7D TRANSDERM (CKD) Nicardipine HCl 200 ML TITRATE IV Labetalol HCl 10 MG Q6H PRN PRN IV Piperacillin Sod/Tazobactam Sod 3.375 GM Q12HR I V Sodium Chloride 100 ML Sodium Chloride 1,000 ML .Q8H IV Hydrocodone Bitart/Acetaminophen 1 TAB Q4H PRN P RN FEED-TUBE (DC) Acetaminophen 650 MG Q4H PRN PRN FEED-TUBE Isosorbide Mononitrate 30 MG BID FEED-TUBE Potassium Chloride 100 ML ASDIR PRN IV Potassium Bicarbonate/Citric Acid 20 MEQ ASDIR P O (CKD) Potassium Chloride 100 ML ASDIR PRN IV Hydralazine HCl 100 MG Q8HR PO Labetalol HCl 400 MG Q8HR PO Magnesium 100 ML ASDIR PRN IV Magnesium Sulfate 50 ML ASDIR PRN IV Magnesium Sulfate 100 ML ASDIR PRN IV Amlodipine Besylate 5 MG Q12HR PO Aspirin 81 MG DAILY FEED-TUBE Atorvastatin Calcium 40 MG DAILY FEED-TUBE Albuterol/Ipratropium 3 ML RTQ6H INH Dextrose/Water 25 ML ASDIR PRN IV Glucagon 1 MG ASDIR PRN IM Insulin Human Lispro LOW DOSE SCALE ASDIR SUBQ Sterile Water 1 ML ASDIR PRN IM Famotidine 20 MG DAILY PO Heparin Sodium (Porcine) 5,000 UNIT Q12HR SUBQ Physical Exam ENT: TRACH WITH A LOT OF MUCOID SECREIONS Cardiovascular: tachycardia Respiratory: crackles Abdomen: non-tender, soft, no distention, no gua rding, no rebound Genitourinary: zuñiga Skin: dry Diagnosis, Assessment Plan Free Text A P: 07-13-20 PT IS ON TC AWAKE DOES NOT COMMUNICATE RENAL FAILURE NOTD PNS + BACTERMIA ZOSYN DAY 11/0607-14-20 BACTEREMIA CONTINUE ZOSYN 12/07 Electronically Signed by Sofie Freed DPM R3 on at 1030 RPT #:[id number] END OF REPORT 2020-07-14 10:29:00-00:[address] [facility] ([facility]) Infectious Dis. Progress Note REPORT#:[id number] REPORT STATUS: Signed DATE:07/14/20 TIME: 1029 PATIENT: JORGE GOINS UNIT #: [id number] ROOM/BED: [address] : [birth year] AGE: 34 SEX: M ATTEND: Luis M Olmedo MD ADM AUTHOR: Sofie Freed DPM R3 * ALL edits or amendments must be made on the [employer]/computer document * Sofie Freed 07/14/20 1029: Subjective Chief Complaint: 07-07-20 INTUBATED UNRESPONSIVE BACTERMIA CVC WAS TAKEN OUT 07-08-2019 BREAHTING FAST UNRESPONSIVE NO FEVER ON THE VENT 07-09-2019 COMFRTABEL TODAY ON THE VENT SEDATED FEVER RENAL FUNCTION NOTED 07-10-2020 MORE AWAKE RESPONDS TO COMMNANDS RENAL FUNCTION NOTED: MAKING 160 M OF URINE SITLL ON THE VENT 07-13-20 no new changes 07-14-20 no overnight events, no fever Objective General VS/I O: Last Documented: Result Date Time Temp 36.8 07/14 0751 Pulse Ox 100 07/14 0700 B/P 145/61 07/14 07 B/P Mean 88 07/14 07 Pulse 86 07/14 0700 Resp 28 07/14 0700 FiO2 35 07/14 0400 O2 Delivery Tracheostomy collar 07/14 0400 O2 Flow Rate 8 07/13 2126 Vital Signs Date Temp Pulse Resp B/P B/P Mean Pulse Ox FiO2 07/13-07/14 36.7-37.1 69-96 5-33 116-155/56-71 80-102 80-100 35 24 hour I O ending at 0700: 07/14 0700 07/13 1900 Intake Total 2910.00 2224.00 Output Total 1400 1000 Balance 1510.00 1224.00 Intake, Free 300 Water Intake, IV 2230.00 1864.00 Intake, Tube 380 360 Feeding Output, Stool 600 900 Output, Urine 800 100 Patient 88.8 kg Weight Weight Bed scale Measurement Method PATIENT WEIGHT: Weight (lb): 195 Weight (oz): 12.33 Weight (kg): 88.800 Medications: Active Meds + DC'd Last 24 Hrs Clonidine HCl 0.3 MG Q7D TRANSDERM (CKD) Nicardipine HCl 200 ML TITRATE IV Labetalol HCl 10 MG Q6H PRN PRN IV Piperacillin Sod/Tazobactam Sod 3.375 GM Q12HR I V Sodium Chloride 100 ML Sodium Chloride 1,000 ML .Q8H IV Hydrocodone Bitart/Acetaminophen 1 TAB Q4H PRN P RN FEED-TUBE (DC) Acetaminophen 650 MG Q4H PRN PRN FEED-TUBE Isosorbide Mononitrate 30 MG BID FEED-TUBE Potassium Chloride 100 ML ASDIR PRN IV Potassium Bicarbonate/Citric Acid 20 MEQ ASDIR P O (CKD) Potassium Chloride 100 ML ASDIR PRN IV Hydralazine HCl 100 MG Q8HR PO Labetalol HCl 400 MG Q8HR PO Magnesium 100 ML ASDIR PRN IV Magnesium Sulfate 50 ML ASDIR PRN IV Magnesium Sulfate 100 ML ASDIR PRN IV Amlodipine Besylate 5 MG Q12HR PO Aspirin 81 MG DAILY FEED-TUBE Atorvastatin Calcium 40 MG DAILY FEED-TUBE Albuterol/Ipratropium 3 ML RTQ6H INH Dextrose/Water 25 ML ASDIR PRN IV Glucagon 1 MG ASDIR PRN IM Insulin Human Lispro LOW DOSE SCALE ASDIR SUBQ Sterile Water 1 ML ASDIR PRN IM Famotidine 20 MG DAILY PO Heparin Sodium (Porcine) 5,000 UNIT Q12HR SUBQ Physical Exam ENT: TRACH WITH A LOT OF MUCOID SECREIONS Cardiovascular: tachycardia Respiratory: crackles Abdomen: non-tender, soft, no distention, no gua rding, no rebound Genitourinary: zuñiga Skin: dry Diagnosis, Assessment Plan Free Text A P: 07-13-20 PT IS ON TC AWAKE DOES NOT COMMUNICATE RENAL FAILURE NOTD PNS + BACTERMIA ZOSYN DAY 11/0607-14-20 BACTEREMIA CONTINUE ZOSYN 12/07 Faby Blanchard 07/14/20 1152: Diagnosis, Assessment Plan Free Text A P: 07-14-2020 URINE RETNSIN>>> FOLFY BACTRERMIA : MIXED >> REEOLVED PNA: TERATED : IMRPVONG RENAL FAILURE WITH EOSINOPHYLIA ID PLAN: D/C ALL B LACTAMS, AND FINSHE THE JOB WITH 6 MORE DAY OF LINEZOLID. OK TO USE STEROIDS BY NEPHROLOGY IF IT IS FELT T O BE ISN CAUSED BY B LACTAMS. Electronically Signed by Sofie Freed DPM R3 on at 1030 Electronically Signed by Faby Blanchard MD on 0 07/14/20 at 1155 RPT #:[id number] END OF REPORT 2020-07-14 10:17:00-00:00 [facility] Vascular Surgery Progress Note REPORT#:[id number] REPORT STATUS: Signed DATE:07/14/20 TIME: 1017 PATIENT: JORGE GOINS UNIT #: [id number] ROOM/BED: [address] : [birth year] AGE: 34 SEX: M ATTEND: Luis M Olmedo MD ADM AUTHOR: Lorenzo Cardoza MD * ALL edits or amendments must be made on the el [employer]/computer document * Subjective Chief Complaint: Intubated and sedated at time of examination HPI 34 year old male with complicated type B dissect ion with likely CVI and now worsening ATN. Objective HEENT: anicteric Neck: trach Cardiovascular: regular rate Respiratory: symmetric expansion, mechanically v entilated Abdomen: distended Genitourinary: zuñiga Extremities: palpable radial and dorsalis pedis pulses bilaterally Neuro/RADIOTELEGRAPHIST: intubated and sedated Skin: no flank or back ecchymosis Psychiatry: unable to evaluate Diagnosis, Assessment Plan Free Text A P: 34 year old male with complicated type B dissection in need of extension TEVAR when stable Keep BP less than 120mmhg with heart rate goal o f 60 bpm Extubate when feasible: Patient has now been tra ched, wean from vent as tolerated Will need further TEVAR when stable Vascular surgery will continue to follow closely . Patient now with positive blood cultures . Recommend broad-spectrum antibiotics and ID consultation for further recommendations. Patient is high risk for aortic stent-graft infection with extremely grim outcome if the stent grafts are to become infected. Agree with removal of central line Appreciate infectious disease recommendations fo r broad-spectrum antibiotics. at 1018 RPT #:[id number] END OF REPORT 2020-07-14 09:18:00-00:00 [facility] Neurology Progress Note REPORT#:[id number] REPORT STATUS: Signed DATE:07/14/20 TIME: 917 PATIENT: JORGE GOINS UNIT #: [id number] ROOM/BED: [address] : [birth year] AGE: 34 SEX: M ATTEND: Luis M Olmedo MD ADM AUTHOR: Sinai Rogers DPM R2 * ALL edits or amendments must be made on the [employer]/computer document * Subjective Chief Complaint: Lethargy and AMS HPI: No acute events overnight Review of Systems Unable to obtain due to: medical condition Objective General VS: Last Documented: Result Date Time Temp 36.8 07/14 0751 Pulse Ox 100 07/14 0700 B/P 145/61 07/14 0700 B/P Mean 88 07/14 0700 Pulse 86 07/14 0700 Resp 28 07/14 0700 FiO2 35 07/14 0400 O2 Delivery Tracheostomy collar 07/14 399 O2 Flow Rate 8 07/13 2125 PATIENT WEIGHT: Weight (lb): 195 Weight (oz): 12.33 Weight (kg): 88.800 Physical Exam Head/Eyes: atraumatic, normocephalic ENT: moist mucosal membranes Neck: non-tender, supple/no meningismus Cardiovascular: irregular rate and rhythm, murmu r Respiratory: decreased breath sounds, intubated/ mech vent Abdomen: non-tender, normal bowel sounds, soft Neuro/RADIOTELEGRAPHIST: Sedated Results Findings/Data: Laboratory Tests 07/14 07/14 07/13 07/13 0154 0142 2057 1715 Chemistry Sodium (137 - 145 mmol/L) 157 H Potassium (3.4 - 5.0 mmol/L) 3.6 Chloride (98 - 107 mmol/L) 126 H Carbon Dioxide (22 - 30 mmol/L) 10 L BUN (9 - 20 mg/dL) 91 H Creatinine (0.7 - 1.3 mg/dL) 8.4 H Glomerular Filtr Rate (>60) 10 L Glucose (74 - 106 mg/dL) 73 L POC Glucose (74 - 106 MG/DL) 77 74 69 L Calcium (8.4 - 10.2 mg/dL) 8.5 Laboratory Tests 07/14 0154 Hematology WBC (5.0 - 12.0 x10 3/uL) 6.4 RBC (4.70 - 6.10 x10 6/uL) 2.98 L Hgb (14.0 - 18.0 g/dL) 8.3 L Hct (37.0 - 49.0 %) 28.9 L MCV (80 - 94 fL) 97 H MCH (27 - 31 pg) 27.9 MCHC (33 - 37 g/dL) 28.7 L RDW (11.5 - 15.5 %) 17.2 H Plt Count (130 - 400 x10 3/uL) 324 MPV (9.4 - 16.4 fL) 10.3 Neut % (Auto) (43 - 65 %) 73.2 H Lymph % (Auto) (20.5 - 45.5 %) 7.6 L Citrus % (Auto) (5.5 - 11.7 %) 7.2 Eos % (Auto) (0.9 - 2.9 %) 9.3 H Baso % (Auto) (0.2 - 1.0 %) 0.3 Neut # (Auto) (2.2 - 4.8 x10 3/uL) 4.65 Lymph # (Auto) (1.3 - 2.9 x10 3/uL) 0.48 L Citrus # (Auto) (0.3 - 0.8 x10 3/uL) 0.46 Eos # (Auto) (0.0 - 0.2 x10 3/uL) 0.59 H Baso # (Auto) (0.0 - 0.1 x10 3/uL) 0.02 Immature Gran % (0.0 - 2.0 %) 2.4 H Nucleated RBC % (0 - 1.0 %) 0.0 Platelet Estimate (ADEQUATE) ADEQUATE Plt Morphology Comment (NORMAL) LARGE PLATELETS SEEN Polychromasia (NONE SEEN) 1+ H Poikilocytosis (NONE SEEN) 1+ H Anisocytosis (NONE SEEN) 1+ H Diagnosis, Assessment Plan Free Text A P: Assessment 1. Acute encephalopathy - multifactorial - metab olic/hypertensive emergency/ acute stroke 2. Acute ischemic strokes, suspect embolic sourc e, + PFO, b/l lower extremity dopplers negative 3. s/p PEA arrest 06/11/20 4. hypertensive emergency - still requiring akua rdipine drip and antihypertensives being adjusted 5. acute respiratory failure requiring intubatio n 6. complicated type b aortic dissection, in need of extension TEVAR when stable per vascular surgery Plan Severe critical illness myopathy S/p trach and PEG blood pressure control - on cardene drip continue medical management antibiotics per ID recommendations per nephrology, will need hemodialysis within day since urine output is poor asa and statin consider PFO closure in future when medically st abilized Will d/w attending Dr. Chino Electronically Signed by Sinai Rogers DPM R2 on 0 07/14/20 at 0928 RPT #:[id number] END OF REPORT 2020-07-14 09:18:00-00:[address] [facility] ([facility]) Neurology Progress Note REPORT#:[id number] REPORT STATUS: Signed DATE:07/14/20 TIME: 917 PATIENT: JORGE GOINS UNIT #: [id number] [address] : [birth year] AGE: 34 SEX: M ATTEND: Luis M Olmedo MD ADM AUTHOR: Sinai Rogers DPM R2 * ALL edits or amendments must be made on the el [employer]/computer document * Sinai Rogers 07/14/20 0918: Subjective Chief Complaint: Lethargy and AMS HPI: No acute events overnight Review of Systems Unable to obtain due to: medical condition Objective General VS: Last Documented: Result Date Time Temp 36.8 07/14 0751 Pulse Ox 100 07/14 0700 B/P 145/61 07/14 0700 B/P Mean 88 07/14 0700 Pulse 86 07/14 0700 Resp 28 07/14 0700 FiO2 35 07/14 0400 O2 Delivery Tracheostomy collar 07/14 0400 O2 Flow Rate 8 07/13 2125 PATIENT WEIGHT: Weight (lb): 195 Weight (oz): 12.33 Weight (kg): 88.800 Physical Exam Head/Eyes: atraumatic, normocephalic ENT: moist mucosal membranes Neck: non-tender, supple/no meningismus Cardiovascular: irregular rate and rhythm, murmu r Respiratory: decreased breath sounds, intubated/ mech vent Abdomen: non-tender, normal bowel sounds, soft Neuro/RADIOTELEGRAPHIST: Sedated Results Findings/Data: Laboratory Tests 07/14 07/14 07/13 07/13 0154 0142 2058 1715 Chemistry Sodium (137 - 145 mmol/L) 157 H Potassium (3.4 - 5.0 mmol/L) 3.6 Chloride (98 - 107 mmol/L) 126 H Carbon Dioxide (22 - 30 mmol/L) 10 L BUN (9 - 20 mg/dL) 91 H Creatinine (0.7 - 1.3 mg/dL) 8.4 H Glomerular Filtr Rate (>60) 10 L Glucose (74 - 106 mg/dL) 73 L POC Glucose (74 - 106 MG/DL) 77 74 69 L Calcium (8.4 - 10.2 mg/dL) 8.5 Laboratory Tests 07/14 015 Hematology WBC (5.0 - 12.0 x10 3/uL) 6.4 RBC (4.70 - 6.10 x10 6/uL) 2.98 L Hgb (14.0 - 18.0 g/dL) 8.3 L Hct (37.0 - 49.0 %) 28.9 L MCV (80 - 94 fL) 97 H MCH (27 - 31 pg) 27.9 MCHC (33 - 37 g/dL) 28.7 L RDW (11.5 - 15.5 %) 17.2 H Plt Count (130 - 400 x10 3/uL) 324 MPV (9.4 - 16.4 fL) 10.3 Neut % (Auto) (43 - 65 %) 73.2 H Lymph % (Auto) (20.5 - 45.5 %) 7.6 L Citrus % (Auto) (5.5 - 11.7 %) 7.2 Eos % (Auto) (0.9 - 2.9 %) 9.3 H Baso % (Auto) (0.2 - 1.0 %) 0.3 Neut # (Auto) (2.2 - 4.8 x10 3/uL) 4.65 Lymph # (Auto) (1.3 - 2.9 x10 3/uL) 0.48 L Citrus # (Auto) (0.3 - 0.8 x10 3/uL) 0.46 Eos # (Auto) (0.0 - 0.2 x10 3/uL) 0.59 H Baso # (Auto) (0.0 - 0.1 x10 3/uL) 0.02 Immature Gran % (0.0 - 2.0 %) 2.4 H Nucleated RBC % (0 - 1.0 %) 0.0 Platelet Estimate (ADEQUATE) ADEQUATE Plt Morphology Comment (NORMAL) LARGE PLATELETS SEEN Polychromasia (NONE SEEN) 1+ H Poikilocytosis (NONE SEEN) 1+ H Anisocytosis (NONE SEEN) 1+ H Diagnosis, Assessment Plan Free Text A P: Assessment 1. Acute encephalopathy - multifactorial - metab olic/hypertensive emergency/ acute stroke 2. Acute ischemic strokes, suspect embolic sourc e, + PFO, b/l lower extremity dopplers negative 3. s/p PEA arrest 06/11/20 4. hypertensive emergency - still requiring akua rdipine drip and antihypertensives being adjusted 5. acute respiratory failure requiring intubatio n 6. complicated type b aortic dissection, in need of extension TEVAR when stable per vascular surgery Plan Severe critical illness myopathy S/p trach and PEG blood pressure control - on cardene drip continue medical management antibiotics per ID recommendations per nephrology, will need hemodialysis within ne xt day since urine output is poor asa and statin consider PFO closure in future when medically st abilized Will d/w attending William Agarwal 07/14/20 1427: Diagnosis, Assessment Plan Free Text A P: agree with above note/ plan by resident Electronically Signed by Sinai Rogers DPM R2 on 0 07/14/20 at 0928 at 1428 RPT #:[id number] END OF REPORT 2020-07-13 23:12:00-00:[address] [facility] ([facility] Critical Care Progress Note REPORT#:[id number] REPORT STATUS: Signed DATE:07/13/20 TIME: 2311 PATIENT: JORGE GOINS UNIT #: [id number] ROOM/BED: [address] : [birth year] AGE: 34 SEX: M ATTEND: Raphael Davila MD ADM AUTHOR: Edy Olmedo MD * ALL edits or amendments must be made on the [employer]/computer document * Subjective Chief Complaint: in renal failure more awake on iv fluid Objective Physical Exam Head/Eyes: atraumatic, normocephalic Cardiovascular: normal heart sounds, normal S1 S 2, normal rate and rhythm Respiratory/Chest: aerating well, clear to auscu ltation Abdomen: soft, non-tender, normal bowel sounds, no distention Extremities: no edema Neuro/RADIOTELEGRAPHIST: disoriented Diagnosis, Assessment Plan Free text A P: 34 year old male with history of aortic dissecti on s/p EVAR came in for hypertensive urgency A/P: Neuro -MRI multiple ischemic cva Neuro status slowly improving #AMS as above Pulm -s/p trach On TC CV #s/p Cardiac Arrest - PEA hypotensive. ROSC achieved after 9 minutes - likely from cardiogenic shock EF 30-34% - Aortic dissection ruled out from CTA chest , a bdomen and pelvis #hx of EVAR for aortic dissection and h/o endole ak in the past - per vascular surgery -uncontrolled hypertension resume cardne keep systoli cBP around 140 # Fever abx GI on tube feeidng Renal Acute renal failure IV fluid May need HD d/w Renal gi ppx: pepcid dvt ppx: heparin Diet: tube feeds condition critical prognosis guarded CC time more than 45 minutes Reviewed chart/images Excludes all procedure time Electronically Signed by Edy Olmedo MD on 11/13 at 0122 RPT #:[id number] END OF REPORT 2020-07-13 21:20:00-00:[address] [facility] ([facility]) Nephrology Progress Note REPORT#:[id number] REPORT STATUS: Signed DATE:07/13/20 TIME: 2119 PATIENT: JORGE GOINS UNIT #: [id number] ROOM/BED: [address] : [birth year] AGE: 34 SEX: M ATTEND: Luis M Olmedo MD ADM AUTHOR: Jojo York MD * ALL edits or amendments must be made on the [employer] document * Subjective Comments: events noted Objective General VS/I O: Vital Signs: Date Time Temp Pulse Resp B/P B/P Pulse O2 O2 Fl ow FiO2 Mean Ox Delivery Rate 07/13 1700 79 25 135/58 90 96 07/13 1645 69 26 127/59 85 86 07/13 1630 77 27 132/59 85 91 07/13 1615 75 27 138/60 91 100 07/13 1600 98.0 07/13 1600 84 29 136/63 90 94 07/13 1545 82 26 128/60 87 07/13 1530 90 30 123/61 85 82 07/13 1515 84 27 138/61 88 80 07/13 1500 86 25 143/64 92 07/13 1430 94 33 140/62 89 99 07/13 1400 72 23 147/65 94 100 07/13 1330 85 23 141/64 92 99 07/13 1315 87 26 141/63 91 100 07/13 1300 69 16 136/57 87 100 07/13 1245 76 5 140/64 92 100 07/13 1215 72 25 132/59 85 100 07/13 1200 98.2 01/18 1200 69 25 130/60 86 100 01/18 1115 81 23 142/67 96 100 01/18 1045 83 25 144/66 95 100 01/18 1030 84 1 139/64 92 100 01/18 1020 99 8 35 Tracheostomy collar /18 1015 89 14 135/63 90 99 01/18 1000 71 21 126/61 88 100 01/18 0945 70 24 122/61 88 100 01/18 0915 83 18 138/65 94 100 01/18 0900 84 26 137/66 95 100 01/18 0830 85 10 140/67 95 100 01/18 0815 79 26 141/68 98 100 01/18 0800 Tracheostomy collar 07/13 0747 97.8 01/18 0745 76 24 135/61 88 100 01/18 0730 84 23 136/67 95 100 01/18 0715 78 24 135/65 92 100 01/18 0700 68 11 132/59 85 100 01/18 0645 84 27 131/62 89 100 01/18 0630 83 26 128/61 88 100 01/18 0615 85 29 122/60 86 100 01/18 0600 85 28 134/58 89 100 01/18 0546 100 8 35 Tracheostomy collar / 0545 74 27 135/62 89 100 01/18 0530 67 25 136/63 91 100 01/18 0515 82 30 136/67 95 100 01/18 0500 85 25 141/68 97 100 01/18 0445 87 20 137/65 94 100 01/18 0430 86 9 138/66 94 100 01/18 0415 87 31 139/65 94 100 01/18 0400 99.0 35 Tracheostomy collar /18 0400 81 29 137/65 94 100 01/18 0345 72 19 132/62 89 100 01/18 0330 83 25 135/70 95 100 01/18 0315 87 30 137/67 93 100 01/18 0300 88 31 139/68 96 100 01/18 0245 77 26 136/63 92 100 01/18 0230 83 22 130/64 90 100 01/18 0215 83 27 132/64 90 100 01/18 0200 83 17 135/64 91 100 01/18 0145 85 20 130/63 89 100 01/18 0130 84 21 127/59 85 100 01/18 0115 84 31 132/63 90 100 01/18 0100 82 27 124/59 84 99 07/13 0046 83 33 138/60 87 100 07/13 0030 85 31 129/62 89 97 07/13 0015 85 25 129/60 87 97 07/13 0000 86 31 131/59 85 97 07/12 2353 98.9 10 Tracheostomy collar 07/12 2345 86 16 125/58 83 97 07/12 2330 87 34 129/58 83 97 07/12 2320 88 31 128/60 86 97 07/12 2300 90 35 131/63 91 97 07/12 2245 90 29 140/63 91 99 07/12 2230 90 17 134/60 86 100 07/12 2215 91 26 131/63 90 99 07/12 2200 92 33 122/58 84 99 07/12 2145 93 28 128/58 84 100 07/12 2130 93 32 144/65 94 100 24 hour I O ending at 0700: 07/13 0700 07/12 1900 Intake Total 1815.00 1140.00 Output Total 650 200 Balance 1165.00 940.00 Intake, Free 350 Water Intake, IV 1225.00 900.00 Intake, Tube 240 240 Feeding Number 2 Bowel Movements Output, Stool 300 Output, Urine 350 200 Medications Active Meds + DC'd Last 24 Hrs Clonidine HCl 0.3 MG Q7D TRANSDERM (CKD) Nicardipine HCl 200 ML TITRATE IV Labetalol HCl 10 MG Q6H PRN PRN IV Piperacillin Sod/Tazobactam Sod 3.375 GM Q12HR I V Sodium Chloride 100 ML Sodium Chloride 1,000 ML .Q8H IV Hydrocodone Bitart/Acetaminophen 1 TAB Q4H PRN P RN FEED-TUBE (DC) Acetaminophen 650 MG Q4H PRN PRN FEED-TUBE Isosorbide Mononitrate 30 MG BID FEED-TUBE Potassium Chloride 100 ML ASDIR PRN IV Potassium Bicarbonate/Citric Acid 20 MEQ ASDIR P O (CKD) Potassium Chloride 100 ML ASDIR PRN IV Hydralazine HCl 100 MG Q8HR PO Labetalol HCl 400 MG Q8HR PO Magnesium 100 ML ASDIR PRN IV Magnesium Sulfate 50 ML ASDIR PRN IV Magnesium Sulfate 100 ML ASDIR PRN IV Amlodipine Besylate 5 MG Q12HR PO Aspirin 81 MG DAILY FEED-TUBE Atorvastatin Calcium 40 MG DAILY FEED-TUBE Albuterol/Ipratropium 3 ML RTQ6H INH Dextrose/Water 25 ML ASDIR PRN IV Glucagon 1 MG ASDIR PRN IM Insulin Human Lispro LOW DOSE SCALE ASDIR SUBQ Sterile Water 1 ML ASDIR PRN IM Famotidine 20 MG DAILY PO Heparin Sodium (Porcine) 5,000 UNIT Q12HR SUBQ Physical Exam General appearance: no acute distress Head/eyes: normal conjunctiva/sclera Neck: trach in place Respiratory: symmetric expansion Genitourinary: zuñiga, urine (appears pink) Extremities: pedal edema improved Musculoskeletal: normal inspection Neuro/RADIOTELEGRAPHIST: SEDATED Hemodialysis access: Type: vascath Psychiatry: unable to evaluate Results Findings/Data: Laboratory Tests 07/13 0549 Blood Gas Puncture Site R Radial ABG pH (7.35 - 7.45 pH units) 7.36 ABG pCO2 (35 - 48 mmHg) 24.9 *L ABG pO2 (83 - 108 mmHg) 143.0 H ABG PO2/FiO2 Ratio (mm/Hg) 408.57 ABG HCO3 (21 - 28 mmol/L) 14.1 L ABG Total CO2 (22 - 29 mmol/L) 14.9 L ABG O2 Sat Calc/Denise (94 - 98 %) 99.2 H ABG Base Excess (-2 - 3 mmol/L) -9.4 L Emmanuel Test N/A O2 Delivery Device T Collar FiO2 (%) 35 Instrument (Specimen Descript) Arterial Laboratory Tests 07/13 07/13 07/13 07/13 1715 0510 0410 0234 Chemistry Sodium (137 - 145 mmol/L) 151 H Potassium (3.4 - 5.0 mmol/L) 4.0 Chloride (98 - 107 mmol/L) 119 H Carbon Dioxide (22 - 30 mmol/L) 12 L BUN (9 - 20 mg/dL) 89 H Creatinine (0.7 - 1.3 mg/dL) 7.4 H Glomerular Filtr Rate (>60) 11 L Glucose (74 - 106 mg/dL) 66 L POC Glucose (74 - 106 MG/DL) 69 L 82 64 L Calcium (8.4 - 10.2 mg/dL) 8.7 Magnesium (1.6 - 2.3 mg/dL) 2.6 H Laboratory Tests 07/13 0234 Hematology WBC (5.0 - 12.0 x10 3/uL) 5.7 RBC (4.70 - 6.10 x10 6/uL) 3.11 L Hgb (14.0 - 18.0 g/dL) 8.7 L Hct (37.0 - 49.0 %) 29.5 L MCV (80 - 94 fL) 95 H MCH (27 - 31 pg) 28.0 MCHC (33 - 37 g/dL) 29.5 L RDW (11.5 - 15.5 %) 17.0 H Plt Count (130 - 400 x10 3/uL) 335 MPV (9.4 - 16.4 fL) 10.5 Neut % (Auto) (43 - 65 %) 67.5 H Lymph % (Auto) (20.5 - 45.5 %) 7.9 L Citrus % (Auto) (5.5 - 11.7 %) 10.9 Eos % (Auto) (0.9 - 2.9 %) 10.9 H Baso % (Auto) (0.2 - 1.0 %) 0.5 Neut # (Auto) (2.2 - 4.8 x10 3/uL) 3.83 Lymph # (Auto) (1.3 - 2.9 x10 3/uL) 0.45 L Citrus # (Auto) (0.3 - 0.8 x10 3/uL) 0.62 Eos # (Auto) (0.0 - 0.2 x10 3/uL) 0.62 H Baso # (Auto) (0.0 - 0.1 x10 3/uL) 0.03 Immature Gran % (0.0 - 2.0 %) 2.3 H Nucleated RBC % (0 - 1.0 %) 0.0 Platelet Estimate (ADEQUATE) ADEQUATE Plt Morphology Comment (NORMAL) NORMAL Polychromasia (NONE SEEN) 1+ H Anisocytosis (NONE SEEN) 1+ H Microcytosis (NONE SEEN) 1+ H Diagnosis, Assessment Plan Free Text A P: JENNIFER hypotension AAA lactic acidosis severe metabolic acidosis- resolved Metabolic alkalosis - resolved UO remains poor likely in atn continue with ivf will need hd in next 24 hours if no improvement spoke with nurse at 2124 RPT #:[id number] END OF REPORT 2020-07-13 14:52:00-00:00 [facility]) Cardiology Progress Note REPORT#:[id number] REPORT STATUS: Signed DATE:07/13/20 TIME: 1451 PATIENT: JORGE GOINS UNIT #: [id number] ROOM/BED: [address] : [birth year] AGE: 34 SEX: M ATTEND: Luis M Olmedo MD ADM AUTHOR: Giancarlo Phan MD * ALL edits or amendments must be made on the [employer]/computer document * Subjective Free Text Subj Notes Free Text Subj Notes: No real changes overnight. Objective Physical Exam Head/Eyes: atraumatic, normocephalic ENT: moist mucosal membranes, normal nose Neck: non-tender, supple/no meningismus, traches otomy prsent Cardiovascular: CV assessment: regular rate and rhythm, no mur mur Respiratory: no distress, coarse breathsounds, m echanically ventialted Abdomen: soft, non-tender Upper extremity: UE assessment: normal capillary refill, normal temperature Lower extremity: LE assessment: normal capillary refill, normal temperature, no edema Musculoskeletal: normal inspection Neuro/RADIOTELEGRAPHIST: vented via trachesotomy, not followin g commands Diagnosis, Assessment Plan Free Text DxA P Notes Free Text DxA P Notes: 1. Hypertensive urgency/emergency - presented with severely elevated BP requiring 2 IV infusions, subsequently suffered PEA cardiac arrest - BP control improving - cont hydralazine 100mg Q8H, labetalol 400mg Q 8H, clonidine patch has been increased to 0.3 - norvasc 5mg PO BID and ISMN 30mg BID - increase losartan to 50mg QD 2. Cardiac arrest - PEA in etiology, pt became hypothermic and sub sequently bradycardic 3. Type B aortic dissection s/p EVAR - has residual descending aortic dissect ion extending into iliacs. No evidence of rupture on CTA. Reviewed by vascular surgery - appreciate assitance - optimal BP Control as above 4. Acute on chronic systolic heart failure - likely hypertensive heart disease due to long standing elevated BP - warm and well perfused on examination - cont lasix gtt 5. Shock - resolved 6. JENNIFER on CKD stage 3 - improved - likely secondary to fluctuation in BP - nephrology following, appreciate recommendatio ns - monitor UOP 7. Acute hypoxic respiratory failure - now has tracheostomy- per ICU team 8. Stroke: - CT head and MRI with evidence of prior CVA - TTE with possible PFO - mo nitor for neurological improvement then will discuss with family potential PFO closure if patient is a cadidate 9. Multiple different species of bacteri a growing: We will defer to infectious disease if the need/require echo otherwise we will continue conservative medical management Will follow. Please call if questions. [facility] Cardiology Electronically Signed by Giancarlo Phan MD on 06/26 02/13 at 1455 RPT #:[id number] END OF REPORT 2020-07-13 09:34:00-00:[address] [facility] ([facility] Neurology Progress Note REPORT#:[id number] REPORT STATUS: Signed DATE:07/13/20 TIME: 933 PATIENT: JORGE GOINS UNIT #: [id number] ROOM/BED: [address] : [birth year] AGE: 34 SEX: M ATTEND: Yoseph Olmedo MD ADM AUTHOR: Sinai Rogers DPSiva R2 * ALL edits or amendments must be made on the [employer]/computer document * Subjective HPI: No acute events overnight Review of Systems Unable to obtain due to: medical condition Objective General VS: Last Documented: Result Date Time Temp 36.6 07/13 0747 Pulse Ox 100 07/13 0715 B/P 135/65 07/13 0715 B/P Mean 92 07/13 0715 Pulse 78 07/13 0715 Resp 24 07/13 0715 FiO2 35 07/13 0546 O2 Delivery Tracheostomy collar 07/13 0446 O2 Flow Rate 8 07/13 0446 PATIENT WEIGHT: Weight (lb): 196 Weight (oz): 3.38 Weight (kg): 89.000 Physical Exam Head/Eyes: atraumatic, normocephalic ENT: moist mucosal membranes Neck: non-tender, supple/no meningismus Cardiovascular: irregular rate and rhythm, murmu r Respiratory: decreased breath sounds, intubated/ mech vent Abdomen: non-tender, normal bowel sounds, soft Neuro/RADIOTELEGRAPHIST: Sedated Results Findings/Data: Laboratory Tests 07/13 0549 Blood Gas Puncture Site R Radial ABG pH (7.35 - 7.45 pH units) 7.36 ABG pCO2 (35 - 48 mmHg) 24.9 *L ABG pO2 (83 - 108 mmHg) 143.0 H ABG PO2/FiO2 Ratio (mm/Hg) 408.57 ABG HCO3 (21 - 28 mmol/L) 14.1 L ABG Total CO2 (22 - 29 mmol/L) 14.9 L ABG O2 Sat Calc/Denise (94 - 98 %) 99.2 H ABG Base Excess (-2 - 3 mmol/L) -9.4 L Emmanuel Test N/A O2 Delivery Device T Collar FiO2 (%) 35 Instrument (Specimen Descript) Arterial Laboratory Tests 07/13 07/13 07/13 0510 0410 0234 Chemistry Sodium (137 - 145 mmol/L) 151 H Potassium (3.4 - 5.0 mmol/L) 4.0 Chloride (98 - 107 mmol/L) 119 H Carbon Dioxide (22 - 30 mmol/L) 12 L BUN (9 - 20 mg/dL) 89 H Creatinine (0.7 - 1.3 mg/dL) 7.4 H Glomerular Filtr Rate (>60) 11 L Glucose (74 - 106 mg/dL) 66 L POC Glucose (74 - 106 MG/DL) 82 64 L Calcium (8.4 - 10.2 mg/dL) 8.7 Magnesium (1.6 - 2.3 mg/dL) 2.6 H Laboratory Tests 07/13 0234 Hematology WBC (5.0 - 12.0 x10 3/uL) 5.7 RBC (4.70 - 6.10 x10 6/uL) 3.11 L Hgb (14.0 - 18.0 g/dL) 8.7 L Hct (37.0 - 49.0 %) 29.5 L MCV (80 - 94 fL) 95 H MCH (27 - 31 pg) 28.0 MCHC (33 - 37 g/dL) 29.5 L RDW (11.5 - 15.5 %) 17.0 H Plt Count (130 - 400 x10 3/uL) 335 MPV (9.4 - 16.4 fL) 10.5 Neut % (Auto) (43 - 65 %) 67.5 H Lymph % (Auto) (20.5 - 45.5 %) 7.9 L Citrus % (Auto) (5.5 - 11.7 %) 10.9 Eos % (Auto) (0.9 - 2.9 %) 10.9 H Baso % (Auto) (0.2 - 1.0 %) 0.5 Neut # (Auto) (2.2 - 4.8 x10 3/uL) 3.83 Lymph # (Auto) (1.3 - 2.9 x10 3/uL) 0.45 L Citrus # (Auto) (0.3 - 0.8 x10 3/uL) 0.62 Eos # (Auto) (0.0 - 0.2 x10 3/uL) 0.62 H Baso # (Auto) (0.0 - 0.1 x10 3/uL) 0.03 Immature Gran % (0.0 - 2.0 %) 2.3 H Nucleated RBC % (0 - 1.0 %) 0.0 Platelet Estimate (ADEQUATE) ADEQUATE Plt Morphology Comment (NORMAL) NORMAL Polychromasia (NONE SEEN) 1+ H Anisocytosis (NONE SEEN) 1+ H Microcytosis (NONE SEEN) 1+ H Radiology Data: Recent Impressions: RADIOLOGY - XR CHEST 1 V 07/13 0606 Report Impression - Status: SIGNED Entered: 07/13/2020 0721 IMPRESSION: 1. Enteric tube has been removed. 2. Pulmonary vascular congestion and cardiomegal y has slightly progressed. Impression By: [email or web address] - Erick Vargas MD Diagnosis, Assessment Plan Free Text A P: Assessment 1. Acute encephalopathy - multifactorial - metab olic/hypertensive emergency/ acute stroke 2. Acute ischemic strokes, suspect embolic sourc e, + PFO, b/l lower extremity dopplers negative 3. s/p PEA arrest 06/11/20 4. hypertensive emergency - still requiring akua rdipine drip and antihypertensives being adjusted 5. acute respiratory failure requiring intubatio n 6. complicated type b aortic dissection, in need of extension TEVAR when stable per vascular surgery Plan Severe critical illness myopathy S/p trach and PEG - has NG tube in as well blood pressure control - on cardene drip continue medical management asa and statin consider PFO closure in future when medically st abilized Will d/w attending Dr. Chino Electronically Signed by Sinai Rogers DPM R2 on 0 07/13/20 at 0941 RPT #:[id number] END OF REPORT 2020-07-13 09:34:00-00:[address] [facility] ([facility]) Neurology Progress Note REPORT#:[id number] REPORT STATUS: Signed DATE:07/13/20 TIME: 933 PATIENT: JORGE GOINS UNIT #: [id number] ROOM/BED: [address] : [birth year] AGE: 34 SEX: M ATTEND: Luis M Olmedo MD ADM AUTHOR: Sinai Rogers DPM R2 * ALL edits or amendments must be made on the el [employer]/computer document * Sinai Rogers 07/13/20 0934: Subjective HPI: No acute events overnight Review of Systems Unable to obtain due to: medical condition Objective General VS: Last Documented: Result Date Time Temp 36.6 07/13 0747 Pulse Ox 100 07/13 0615 B/P 135/65 07/13 0715 B/P Mean 92 07/13 0715 Pulse 78 07/13 0715 Resp 24 07/13 0615 FiO2 35 07/13 0546 O2 Delivery Tracheostomy collar 07/13 0546 O2 Flow Rate 8 07/13 0546 PATIENT WEIGHT: Weight (lb): 196 Weight (oz): 3.38 Weight (kg): 89.000 Physical Exam Head/Eyes: atraumatic, normocephalic ENT: moist mucosal membranes Neck: non-tender, supple/no meningismus Cardiovascular: irregular rate and rhythm, murmu r Respiratory: decreased breath sounds, intubated/ mech vent Abdomen: non-tender, normal bowel sounds, soft Neuro/RADIOTELEGRAPHIST: Sedated Results Findings/Data: Laboratory Tests 07/13 548 Blood Gas Puncture Site R Radial ABG pH (7.35 - 7.45 pH units) 7.36 ABG pCO2 (35 - 48 mmHg) 24.9 *L ABG pO2 (83 - 108 mmHg) 143.0 H ABG PO2/FiO2 Ratio (mm/Hg) 408.57 ABG HCO3 (21 - 28 mmol/L) 14.1 L ABG Total CO2 (22 - 29 mmol/L) 14.9 L ABG O2 Sat Calc/Denise (94 - 98 %) 99.2 H ABG Base Excess (-2 - 3 mmol/L) -9.4 L Emmanuel Test N/A O2 Delivery Device T Collar FiO2 (%) 35 Instrument (Specimen Descript) Arterial Laboratory Tests 07/13 07/13 07/13 0510 0410 0234 Chemistry Sodium (137 - 145 mmol/L) 151 H Potassium (3.4 - 5.0 mmol/L) 4.0 Chloride (98 - 107 mmol/L) 119 H Carbon Dioxide (22 - 30 mmol/L) 12 L BUN (9 - 20 mg/dL) 89 H Creatinine (0.7 - 1.3 mg/dL) 7.4 H Glomerular Filtr Rate (>60) 11 L Glucose (74 - 106 mg/dL) 66 L POC Glucose (74 - 106 MG/DL) 82 64 L Calcium (8.4 - 10.2 mg/dL) 8.7 Magnesium (1.6 - 2.3 mg/dL) 2.6 H Laboratory Tests 07/13 0234 Hematology WBC (5.0 - 12.0 x10 3/uL) 5.7 RBC (4.70 - 6.10 x10 6/uL) 3.11 L Hgb (14.0 - 18.0 g/dL) 8.7 L Hct (37.0 - 49.0 %) 29.5 L MCV (80 - 94 fL) 95 H MCH (27 - 31 pg) 28.0 MCHC (33 - 37 g/dL) 29.5 L RDW (11.5 - 15.5 %) 17.0 H Plt Count (130 - 400 x10 3/uL) 335 MPV (9.4 - 16.4 fL) 10.5 Neut % (Auto) (43 - 65 %) 67.5 H Lymph % (Auto) (20.5 - 45.5 %) 7.9 L Citrus % (Auto) (5.5 - 11.7 %) 10.9 Eos % (Auto) (0.9 - 2.9 %) 10.9 H Baso % (Auto) (0.2 - 1.0 %) 0.5 Neut # (Auto) (2.2 - 4.8 x10 3/uL) 3.83 Lymph # (Auto) (1.3 - 2.9 x10 3/uL) 0.45 L Citrus # (Auto) (0.3 - 0.8 x10 3/uL) 0.62 Eos # (Auto) (0.0 - 0.2 x10 3/uL) 0.62 H Baso # (Auto) (0.0 - 0.1 x10 3/uL) 0.03 Immature Gran % (0.0 - 2.0 %) 2.3 H Nucleated RBC % (0 - 1.0 %) 0.0 Platelet Estimate (ADEQUATE) ADEQUATE Plt Morphology Comment (NORMAL) NORMAL Polychromasia (NONE SEEN) 1+ H Anisocytosis (NONE SEEN) 1+ H Microcytosis (NONE SEEN) 1+ H Radiology Data: Recent Impressions: RADIOLOGY - XR CHEST 1 V 07/13 0606 Report Impression - Status: SIGNED Entered: 07/13/2020 0721 IMPRESSION: 1. Enteric tube has been removed. 2. Pulmonary vascular congestion and cardiomegal y has slightly progressed. Impression By: [email or web address] - Erick Vargas MD Diagnosis, Assessment Plan Free Text A P: Assessment 1. Acute encephalopathy - multifactorial - metab olic/hypertensive emergency/ acute stroke 2. Acute ischemic strokes, suspect embolic sourc e, + PFO, b/l lower extremity dopplers negative 3. s/p PEA arrest 06/11/20 4. hypertensive emergency - still requiring akua rdipine drip and antihypertensives being adjusted 5. acute respiratory failure requiring intubatio n 6. complicated type b aortic dissection, in need of extension TEVAR when stable per vascular surgery Plan Severe critical illness myopathy S/p trach and PEG - has NG tube in as well blood pressure control - on cardene drip continue medical management asa and statin consider PFO closure in future when medically st abilized Will d/w attending William Agarwal 07/13/20 1703: Diagnosis, Assessment Plan Free Text A P: agree with above note/ plan by resident Electronically Signed by Sinai Rogers DPM R2 on 0 07/13/20 at 0941 at 1703 RPT #:[id number] END OF REPORT 2020-07-13 09:32:00-00:[address] [facility] ([facility]) Infectious Dis. Progress Note REPORT#:[id number] REPORT STATUS: Signed DATE:07/13/20 TIME: 931 PATIENT: JORGE GOINS UNIT #: [id number] ROOM/BED: [address] : [birth year] AGE: 34 SEX: M ATTEND: Luis M Olmedo MD ADM AUTHOR: Sofie Freed DPSiva R3 * ALL edits or amendments must be made on the [employer]/computer document * Subjective Chief Complaint: 07-07-20 INTUBATED UNRESPONSIVE BACTERMIA CVC WAS TAKEN OUT 07-08-2019 BREAHTING FAST UNRESPONSIVE NO FEVER ON THE VENT 07-09-2019 COMFRTABEL TODAY ON THE VENT SEDATED FEVER RENAL FUNCTION NOTED 07-10-2020 MORE AWAKE RESPONDS TO COMMNANDS RENAL FUNCTION NOTED: MAKING 160 M OF URINE SITLL ON THE VENT 07-13-20 no new changes Objective General VS/I O: Last Documented: Result Date Time Temp 36.6 07/13 0747 Pulse Ox 100 07/13 0715 B/P 135/65 07/13 0715 B/P Mean 92 07/13 0715 Pulse 78 07/13 0715 Resp 24 07/13 0715 FiO2 35 07/13 0546 O2 Delivery Tracheostomy collar 07/13 0546 O2 Flow Rate 8 07/13 0546 Vital Signs Date Temp Pulse Resp B/P B/P Mean Pulse Ox FiO2 07/12-07/13 36.6-37.4 67-94 0-39 110-176/52-82 75-118 97-100 35-40 24 hour I O ending at 0700: 07/13 0700 07/12 1900 Intake Total 1815.00 1140.00 Output Total 650 200 Balance 1165.00 940.00 Intake, Free 350 Water Intake, IV 1225.00 900.00 Intake, Tube 240 240 Feeding Number 2 Bowel Movements Output, Stool 300 Output, Urine 350 200 PATIENT WEIGHT: Weight (lb): 196 Weight (oz): 3.38 Weight (kg): 89.000 Medications: Active Meds + DC'd Last 24 Hrs Clonidine HCl 0.3 MG Q7D TRANSDERM (CKD) Nicardipine HCl 200 ML TITRATE IV Labetalol HCl 10 MG Q6H PRN PRN IV Piperacillin Sod/Tazobactam Sod 3.375 GM Q12HR I V Sodium Chloride 100 ML Sodium Chloride 1,000 ML .Q8H IV Hydrocodone Bitart/Acetaminophen 1 TAB Q4H PRN P RN FEED-TUBE Acetaminophen 650 MG Q4H PRN PRN FEED-TUBE Isosorbide Mononitrate 30 MG BID FEED-TUBE Potassium Chloride 100 ML ASDIR PRN IV Potassium Bicarbonate/Citric Acid 20 MEQ ASDIR P O (CKD) Potassium Chloride 100 ML ASDIR PRN IV Hydralazine HCl 100 MG Q8HR PO Labetalol HCl 400 MG Q8HR PO Magnesium 100 ML ASDIR PRN IV Magnesium Sulfate 50 ML ASDIR PRN IV Magnesium Sulfate 100 ML ASDIR PRN IV Clonidine HCl 0.2 MG Q7D TRANSDERM (DC) Amlodipine Besylate 5 MG Q12HR PO Aspirin 81 MG DAILY FEED-TUBE Atorvastatin Calcium 40 MG DAILY FEED-TUBE Albuterol/Ipratropium 3 ML RTQ6H INH Dextrose/Water 25 ML ASDIR PRN IV Glucagon 1 MG ASDIR PRN IM Insulin Human Lispro LOW DOSE SCALE ASDIR SUBQ Sterile Water 1 ML ASDIR PRN IM Famotidine 20 MG DAILY PO Heparin Sodium (Porcine) 5,000 UNIT Q12HR SUBQ Physical Exam ENT: TRACH WITH A LOT OF MUCOID SECREIONS Cardiovascular: tachycardia Respiratory: crackles Abdomen: non-tender, soft, no distention, no gua rding, no rebound Genitourinary: zuñiga Skin: dry Diagnosis, Assessment Plan Free Text A P: 07-07-20 CVC WAS D/C SOURCE OF BACTEREMIA !!!!!!!!!!! VANCO + CEFPEIME FOR NOW CHECK SENSITIVITIES. IF REPEAT CX ARE + FOR ENTOEROCOCCCI>>>> CHEKC A N ECHO 07-08-2019 CXR STAT PNA MIXED BACTEREMIA UNASYN REPEAT BLOOD CX 07-09-2020 CONTIUED FEVER + ESIONPHYLIA ? DRUNG FEVER PNEUMOPERITONUM >>> EXAME IS VERY BENIGHN MIXED BACTERMIA ACUTE RENAL FAILURE WILL NEEED TO DE ESCALTE HIS ABX TO PROTECT/ RES TONRE HIS RENAL FUCTION,. RE START UNASYN IF OK WITH PRIMAY TEAM 07-10-2019 ACUTE RENAL FAILURE PNA BACTERMIA: REPEAT CX ARE NEGETIVE EOSINOPHYLIA BNNIGHN ABDOMINAL EXAME HASD 2 TYPES OF ENTEROBACTER DAPTO + CEFEPIME July 11, 2020 Enterobacte r bacterial septicemia and Enterococcus septicemia, Enterobacter pneumonia, suggest Zosyn IV for the time being June stable, continue same regimen 07-13-20 BACTEREMIA CONTINUE ZOSYN Electronically Signed by Sofie Freed DPM R3 on at 1333 RPT #:[id number] END OF REPORT 2020-07-13 09:32:00-00:[address] [facility] ([facility]) Infectious Dis. Progress Note REPORT#:[id number] REPORT STATUS: Signed DATE:07/13/20 TIME: 931 PATIENT: JORGE GOINS UNIT #: [id number] ROOM/BED: [address] : [birth year] AGE: 34 SEX: M ATTEND: Luis M Olmedo MD ADM AUTHOR: Sofie Freed DPM R3 * ALL edits or amendments must be made on the el [employer]/computer document * Sofie Freed 07/13/20 0932: Subjective Chief Complaint: 07-07-20 INTUBATED UNRESPONSIVE BACTERMIA CVC WAS TAKEN OUT 07-08-2019 BREAHTING FAST UNRESPONSIVE NO FEVER ON THE VENT 07-09-2019 COMFRTABEL TODAY ON THE VENT SEDATED FEVER RENAL FUNCTION NOTED 07-10-2020 MORE AWAKE RESPONDS TO COMMNANDS RENAL FUNCTION NOTED: MAKING 160 M OF URINE SITLL ON THE VENT 07-13-20 no new changes Objective General VS/I O: Last Documented: Result Date Time Temp 36.6 07/13 0747 Pulse Ox 100 07/13 0715 B/P 135/65 07/13 0715 B/P Mean 92 07/13 0715 Pulse 78 07/13 0715 Resp 24 07/13 0715 FiO2 35 07/13 0546 O2 Delivery Tracheostomy collar 07/13 0546 O2 Flow Rate 8 07/13 0546 Vital Signs Date Temp Pulse Resp B/P B/P Mean Pulse Ox FiO2 07/12-07/13 36.6-37.4 67-94 0-39 110-176/52-82 75-118 97-100 35-40 24 hour I O ending at 0700: 07/13 0700 07/12 1900 Intake Total 1815.00 1140.00 Output Total 650 200 Balance 1165.00 940.00 Intake, Free 350 Water Intake, IV 1225.00 900.00 Intake, Tube 240 240 Feeding Number 2 Bowel Movements Output, Stool 300 Output, Urine 350 200 PATIENT WEIGHT: Weight (lb): 196 Weight (oz): 3.38 Weight (kg): 89.000 Medications: Active Meds + DC'd Last 24 Hrs Clonidine HCl 0.3 MG Q7D TRANSDERM (CKD) Nicardipine HCl 200 ML TITRATE IV Labetalol HCl 10 MG Q6H PRN PRN IV Piperacillin Sod/Tazobactam Sod 3.375 GM Q12HR I V Sodium Chloride 100 ML Sodium Chloride 1,000 ML .Q8H IV Hydrocodone Bitart/Acetaminophen 1 TAB Q4H PRN P RN FEED-TUBE Acetaminophen 650 MG Q4H PRN PRN FEED-TUBE Isosorbide Mononitrate 30 MG BID FEED-TUBE Potassium Chloride 100 ML ASDIR PRN IV Potassium Bicarbonate/Citric Acid 20 MEQ ASDIR P O (CKD) Potassium Chloride 100 ML ASDIR PRN IV Hydralazine HCl 100 MG Q8HR PO Labetalol HCl 400 MG Q8HR PO Magnesium 100 ML ASDIR PRN IV Magnesium Sulfate 50 ML ASDIR PRN IV Magnesium Sulfate 100 ML ASDIR PRN IV Clonidine HCl 0.2 MG Q7D TRANSDERM (DC) Amlodipine Besylate 5 MG Q12HR PO Aspirin 81 MG DAILY FEED-TUBE Atorvastatin Calcium 40 MG DAILY FEED-TUBE Albuterol/Ipratropium 3 ML RTQ6H INH Dextrose/Water 25 ML ASDIR PRN IV Glucagon 1 MG ASDIR PRN IM Insulin Human Lispro LOW DOSE SCALE ASDIR SUBQ Sterile Water 1 ML ASDIR PRN IM Famotidine 20 MG DAILY PO Heparin Sodium (Porcine) 5,000 UNIT Q12HR SUBQ Physical Exam ENT: TRACH WITH A LOT OF MUCOID SECREIONS Cardiovascular: tachycardia Respiratory: crackles Abdomen: non-tender, soft, no distention, no gua rding, no rebound Genitourinary: zuñiga Skin: dry Diagnosis, Assessment Plan Free Text A P: 07-07-20 CVC WAS D/C SOURCE OF BACTEREMIA !!!!!!!!!!! VANCO + CEFPEIME FOR NOW CHECK SENSITIVITIES. IF REPEAT CX ARE + FOR ENTOEROCOCCCI>>>> [place] A N ECHO 07-08-2019 CXR STAT PNA MIXED BACTEREMIA UNASYN REPEAT BLOOD CX 07-09-2020 CONTIUED FEVER + ESIONPHYLIA ? DRUNG FEVER PNEUMOPERITONUM >>> EXAME IS VERY BENIGHN MIXED BACTERMIA ACUTE RENAL FAILURE WILL NEEED TO DE ESCALTE HIS ABX TO PROTECT/ RES TONRE HIS RENAL FUCTION,. RE START UNASYN IF OK WITH PRIMAY TEAM 07-10-2019 ACUTE RENAL FAILURE PNA BACTERMIA: REPEAT CX ARE NEGETIVE EOSINOPHYLIA BNNIGHN ABDOMINAL EXAME HASD 2 TYPES OF ENTEROBACTER DAPTO + CEFEPIME July 11, 2020 Enterobacte r bacterial septicemia and Enterococcus septicemia, Enterobacter pneumonia, suggest Zosyn IV for the time being June stable, continue same regimen 07-13-20 BACTEREMIA CONTINUE ZOSYN Faby Blanchard 07/13/20 1345: Diagnosis, Assessment Plan Free Text A P: PT IS ON TC AWAKE DOES NOT COMMUNICATE RENAL FAILURE NOTD PNS + BACTERMIA ZOSYN DAY 11/06 Electronically Signed by Sofie Freed DPM R3 on at 1333 Electronically Signed by Faby Blanchard MD on 0 07/13/20 at 1345 RPT #:[id number] END OF REPORT 2020-07-12 18:55:00-00:00 [facility] Cardiology Progress Note REPORT#:[id number] REPORT STATUS: Signed DATE:07/12/20 TIME: 1854 PATIENT: JORGE GOINS UNIT #: [id number] ROOM/BED: [address] : [birth year] AGE: 34 SEX: M ATTEND: Luis M Olmedo MD ADM AUTHOR: Giancarlo Phan MD * ALL edits or amendments must be made on the el [employer]ronic/computer document * Subjective Free Text Subj Notes Free Text Subj Notes: no changes Objective General VS/I O: 24 hour I O ending at 0700: 07/12 0700 07/11 1900 Intake Total 2025.00 1340.00 Output Total 250 510 Balance 1775.00 830.00 Intake, Free 90 Water Intake, IV 1629.00 1200.00 Intake, Tube 306 80 Feeding Intake, Tube 60 Irrigant Number 1 Bowel Movements Output, Stool 400 Output, Urine 250 110 Patient 89 kg Weight Weight Bed scale Measurement Method Vital Signs: Date Time Temp Pulse Resp B/P B/P Pulse O2 O2 Fl ow FiO2 Mean Ox Delivery Rate 07/12 1821 92 30 98 07/12 1820 91 25 165/76 109 98 07/12 1815 92 35 166/77 110 100 07/12 1810 90 28 165/75 108 100 07/12 1805 90 28 163/70 108 100 07/12 1800 89 27 162/74 106 100 07/12 1755 90 23 159/72 104 100 07/12 1753 90 13 100 07/12 1750 89 11 159/71 103 100 07/12 1745 91 14 164/76 109 99 07/12 1740 90 27 139/60 87 98 07/12 1735 91 24 142/64 92 99 07/12 1730 92 21 166/74 106 100 07/12 1725 89 11 176/76 109 100 07/12 1720 88 21 165/74 106 100 07/12 1715 91 26 166/69 106 100 07/12 1710 88 24 168/76 109 100 07/12 1705 91 21 164/76 109 100 07/12 1700 85 21 166/77 110 100 07/12 1655 79 0 163/72 106 100 07/12 1650 87 26 162/77 109 99 07/12 1645 85 21 121/56 80 98 07/12 1640 90 25 114/52 75 98 07/12 1635 87 8 110/53 76 98 07/12 1631 91 18 124/57 82 98 07/12 1625 90 30 166/76 109 100 07/12 1620 90 26 161/74 107 100 07/12 1615 87 23 155/72 103 100 07/12 1610 85 21 158/73 105 100 07/12 1601 92 27 147/54 78 97 07/12 1600 89 29 97 07/12 1555 85 23 151/70 100 100 07/12 1550 87 30 154/72 103 100 / 1545 86 22 153/71 102 100 07/12 1540 90 20 150/68 98 100 01/ 1535 85 29 151/67 97 100 07/12 1530 87 26 152/70 100 100 07/12 1525 84 19 153/71 102 100 07/12 1520 87 25 148/69 99 100 07/12 1515 86 23 154/71 102 100 07/12 1510 91 15 148/70 99 100 07/12 1505 88 25 138/69 94 98 01/ 1500 76 24 126/55 79 100 07/12 1455 81 28 122/58 84 100 07/12 1450 88 25 138/62 89 100 07/12 1449 88 20 100 07/12 1445 87 26 139/61 88 100 07/12 1440 85 23 145/65 93 100 07/12 1435 87 25 149/68 98 100 07/12 1430 87 38 144/67 96 99 07/12 1425 90 26 154/71 102 100 07/12 1420 88 28 158/74 107 100 07/12 1415 84 24 156/73 108 99 07/12 1410 80 20 164/79 114 100 07/12 1405 88 39 160/81 114 100 07/12 1400 83 25 167/81 116 100 07/12 1355 84 25 164/79 113 100 07/12 1350 82 29 171/80 117 100 07/12 1345 80 27 167/82 117 100 07/12 1340 78 22 165/79 113 100 07/12 1335 79 24 170/79 114 100 07/12 1330 82 31 161/76 109 100 07/12 1325 78 24 166/79 113 100 07/12 1320 80 23 164/78 112 100 07/12 1315 79 24 171/81 116 100 07/12 1310 83 27 170/82 118 100 07/12 1305 77 22 163/76 111 100 07/12 1300 85 27 161/77 111 100 07/12 1255 79 24 165/72 108 100 07/12 1250 79 23 166/77 110 100 07/12 1245 79 20 159/74 106 100 07/12 1240 78 23 168/77 111 100 07/12 1235 78 21 167/77 111 100 07/12 1230 80 19 172/79 114 100 07/12 1225 79 20 166/76 109 100 07/12 1220 81 20 170/79 114 100 07/12 1215 80 20 161/77 111 100 07/12 1210 80 19 164/79 114 100 07/12 1205 80 20 161/77 112 100 07/12 1200 77 19 163/77 111 100 07/12 1155 80 18 160/74 106 100 07/12 1150 83 16 161/76 109 100 07/12 1145 82 19 156/74 106 100 07/12 1140 83 20 149/69 99 100 07/12 1135 73 24 138/62 89 100 07/12 1130 73 24 142/59 91 100 07/12 1125 73 23 142/65 93 100 07/12 1120 71 22 139/62 91 100 07/12 1115 73 22 145/68 98 100 07/12 1110 70 21 135/57 86 100 07/12 1105 73 21 139/63 90 100 07/12 1100 71 22 136/60 87 100 07/12 1055 73 23 149/67 96 100 07/12 1050 71 22 153/70 100 100 07/12 1045 80 23 158/74 106 100 07/12 1040 82 24 157/74 106 100 07/12 1035 81 24 156/75 106 100 07/12 1030 81 23 153/72 104 100 07/12 1025 81 25 156/74 106 100 07/12 1020 80 22 154/72 103 100 07/12 1015 87 26 163/77 110 100 07/12 1012 98 10 40 Tracheostomy collar 07/12 1010 81 23 165/74 106 100 07/12 1005 80 21 169/73 105 100 07/12 1000 81 22 168/73 105 100 07/12 0955 80 24 168/72 104 100 07/12 0950 80 22 163/73 105 100 07/12 0945 80 22 162/73 105 100 07/12 0940 80 18 158/69 104 100 07/12 0935 80 23 161/74 106 100 07/12 0930 80 22 162/73 107 100 07/12 0925 80 22 160/74 106 100 07/12 0920 80 21 154/66 102 100 07/12 0915 82 23 166/74 106 100 07/12 0910 79 23 168/74 107 100 07/12 0905 78 20 165/74 107 100 01/17 0900 79 20 166/74 107 100 01/17 0855 79 23 164/70 106 100 01/17 0850 80 23 168/77 110 100 01/17 0845 80 22 161/65 102 100 /17 0840 80 20 164/75 108 100 01/17 0835 82 25 162/75 108 100 /17 0830 83 24 152/72 104 100 /17 0825 72 22 145/63 90 100 01/17 0820 70 23 152/68 98 100 /17 0815 80 20 165/75 108 100 /17 0810 80 22 159/73 105 100 / 0809 79 21 100 / 0805 80 21 163/73 108 100 07/12 0800 37.1 07/12 0800 Tracheostomy collar 07/12 0800 80 20 162/75 108 100 / 0755 81 23 164/76 109 100 / 0750 80 23 161/72 106 100 / 0745 80 19 163/75 108 100 / 0740 82 21 100 / 0738 82 22 161/75 108 100 / 0730 81 20 158/74 107 100 /17 0700 79 23 157/74 106 100 / 0651 85 33 100 / 0630 82 24 156/73 105 100 /17 0600 80 27 160/72 103 100 07/12 0531 85 25 175/81 112 / 0500 84 27 165/79 114 / 0430 82 25 161/78 112 99 / 0400 36.7 / 0400 80 28 172/81 117 100 / 0330 83 34 162/72 104 97 07/12 0300 85 30 172/82 118 100 / 0230 79 18 161/78 112 96 / 0200 69 21 143/69 99 99 / 0130 74 23 134/62 89 99 01/17 0100 73 22 145/67 97 99 / 0035 85 23 100 07/12 0030 86 22 148/75 103 99 01/ 0000 86 26 142/72 100 99 07/11 2343 37.8 01 2330 85 20 148/72 102 99 07/11 2300 85 18 145/73 103 99 07/11 2230 85 20 137/77 101 99 07/11 2200 85 21 157/76 109 99 01/16 2131 86 26 149/67 97 100 07/114 100 10 40 Tracheostomy collar 07/119 87 23 150/62 97 100 07/11 2100 87 25 158/74 106 100 07/11 2029 88 31 161/74 106 100 07/11 2013 87 29 100 07/11 1999 36.9 07/11 1999 40 Tracheostomy collar 07/11 1999 86 30 155/78 111 100 07/11 1930 90 33 116/70 89 100 07/11 1901 86 25 145/60 87 100 07/11 1900 87 28 99 PATIENT WEIGHT: Weight (lb): 196 Weight (oz): 3.38 Weight (kg): 89.000 Physical Exam Head/Eyes: atraumatic, normocephalic ENT: moist mucosal membranes, normal nose Neck: non-tender, supple/no meningismus, traches otomy prsent Cardiovascular: CV assessment: regular rate and rhythm, no murm ur Respiratory: no distress, coarse breathsounds, m echanically ventialted Abdomen: soft, non-tender Upper extremity: UE assessment: normal capillary refill, normal temperature Lower extremity: LE assessment: normal capillary refill, normal temperature, no edema Musculoskeletal: normal inspection Neuro/RADIOTELEGRAPHIST: vented via trachesotomy, not followin g commands Diagnosis, Assessment Plan Free Text DxA P Notes Free Text DxA P Notes: 1. Hypertensive urgency/emergency - presented with severely elevated BP requiring 2 IV infusions, subsequently suffered PEA cardiac arrest - BP control improving - cont hydralazine 100mg Q8H, labetalol 400mg Q8H, clonidine patch has been increased to 0.3 - norvasc 5mg PO BID and ISMN 30mg BID - increase losartan to 50mg QD 2. Cardiac arrest - PEA in etiology, pt became hypothermic and sub sequently bradycardic 3. Type B aortic dissection s/p EVAR - has residual descending aortic dissect ion extending into iliacs. No evidence of rupture on CTA. Reviewed by vascular surgery - appreciate assitance - optimal BP Control as above 4. Acute on chronic systolic heart failure - likely hypertensive heart disease due to long standing elevated BP - warm and well perfused on examination - cont lasix gtt 5. Shock - resolved 6. JENNIFER on CKD stage 3 - improved - likely secondary to fluctuation in BP - nephrology following, appreciate recommendatio ns - monitor UOP 7. Acute hypoxic respiratory failure - now has tracheostomy- per ICU team 8. Stroke: - CT head and MRI with evidence of prior CVA - TTE with possible PFO - mo nitor for neurological improvement then will discuss with family potential PFO closure if patient is a cadidate (will discuss with family. Will consider doing it as inpatient.) 9. Multiple different species of bacteri a growing: We will defer to infectious disease if the need/require echo otherwise we will continue conservative medical management Will follow. Please call if questions. [facility] Cardiology Electronically Signed by Giancarlo Phan MD on 06/26 01/13 at 1856 RPT #:[id number] END OF REPORT 2020-07-12 15:43:00-00:[address] [facility] ([facility]) Infectious Dis. Progress Note REPORT#:[id number] REPORT STATUS: Signed DATE:07/12/20 TIME: 1543 PATIENT: JORGE GOINS UNIT #: [id number] ROOM/BED: [address] : [birth year] AGE: 34 SEX: M ATTEND: Luis M Olmedo MD ADM AUTHOR: Germain Ashley MD * ALL edits or amendments must be made on the el [employer]/computer document * Subjective Chief Complaint: 07-07-20 INTUBATED UNRESPONSIVE BACTERMIA CVC WAS TAKEN OUT 07-08-2019 BREAHTING FAST UNRESPONSIVE NO FEVER ON THE VENT 07-09-2019 COMFRTABEL TODAY ON THE VENT SEDATED FEVER RENAL FUNCTION NOTED 07-10-2020 MORE AWAKE RESPONDS TO COMMNANDS RENAL FUNCTION NOTED: MAKING 160 M OF URINE SITLL ON THE VENT HPI: Awake and alert on tracheostomy Objective General VS/I O: Last Documented: Result Date Time Pulse Ox 100 07/12 1449 Pulse 88 07/12 1449 Resp 20 07/12 1449 B/P 139/61 07/12 1445 B/P Mean 88 07/12 1445 FiO2 40 07/12 1012 O2 Delivery Tracheostomy collar 07/12 1012 O2 Flow Rate 10 07/12 1012 Temp 98.7 07/12 0800 Vital Signs Date Temp Pulse Resp B/P B/P Mean Pulse Ox FiO2 01/16-07/12 98.0-100.1 69-90 16-39 116-175/57-8 2 86-118 96-100 40 24 hour I O ending at 0700: 07/12 0700 07/11 1900 Intake Total 2025.00 1340.00 Output Total 250 510 Balance 1775.00 830.00 Intake, Free 90 Water Intake, IV 1629.00 1200.00 Intake, Tube 306 80 Feeding Intake, Tube 60 Irrigant Number 1 Bowel Movements Output, Stool 400 Output, Urine 250 110 Patient 89 kg Weight Weight Bed scale Measurement Method PATIENT WEIGHT: Weight (lb): 196 Weight (oz): 3.38 Weight (kg): 89.000 Medications: Active Meds + DC'd Last 24 Hrs Nicardipine HCl 200 ML TITRATE IV Labetalol HCl 10 MG Q6H PRN PRN IV Cefepime HCl 1 GM QPM IV (CAN) Sterile Water 10 ML Piperacillin Sod/Tazobactam Sod 3.375 GM Q12HR I V Sodium Chloride 100 ML Sodium Chloride 1,000 ML .Q8H IV Daptomycin 500 MG Q48H IV (DC) IV Miscellaneous Supplies 1 EACH Hydrocodone Bitart/Acetaminophen 1 TAB Q4H PRN P RN FEED-TUBE Acetaminophen 650 MG Q4H PRN PRN FEED-TUBE Isosorbide Mononitrate 30 MG BID FEED-TUBE Potassium Chloride 100 ML ASDIR PRN IV Propofol 100 ML TITRATE IV (DC) Potassium Bicarbonate/Citric Acid 20 MEQ ASDIR P O (CKD) Potassium Chloride 100 ML ASDIR PRN IV Hydralazine HCl 100 MG Q8HR PO Labetalol HCl 400 MG Q8HR PO Magnesium 100 ML ASDIR PRN IV Magnesium Sulfate 50 ML ASDIR PRN IV Magnesium Sulfate 100 ML ASDIR PRN IV Clonidine HCl 0.2 MG Q7D TRANSDERM (CKD) Amlodipine Besylate 5 MG Q12HR PO Aspirin 81 MG DAILY FEED-TUBE Atorvastatin Calcium 40 MG DAILY FEED-TUBE Albuterol/Ipratropium 3 ML RTQ6H INH Dextrose/Water 25 ML ASDIR PRN IV Glucagon 1 MG ASDIR PRN IM Insulin Human Lispro LOW DOSE SCALE ASDIR SUBQ Sterile Water 1 ML ASDIR PRN IM Famotidine 20 MG DAILY PO Heparin Sodium (Porcine) 5,000 UNIT Q12HR SUBQ Physical Exam General appearance: alert, awake ENT: TRACH WITH A LOT OF MUCOID SECREIONS Cardiovascular: tachycardia Respiratory: crackles Abdomen: non-tender, soft, no distention, no gua rding, no rebound Genitourinary: zuñiga Skin: dry Results Findings/Data: Laboratory Tests 07/12 07/12 07/12 07/12 07/12 0650 0537 0323 0231 0230 Chemistry Sodium (137 - 145 mmol/L) 149 H Potassium (3.4 - 5.0 mmol/L) 4.1 Chloride (98 - 107 mmol/L) 114 H Carbon Dioxide (22 - 30 mmol/L) 15 L BUN (9 - 20 mg/dL) 78 H Creatinine (0.7 - 1.3 mg/dL) 6.8 H Glomerular Filtr Rate (>60) 12 L Glucose (74 - 106 mg/dL) 73 L POC Glucose (74 - 106 MG/DL) 83 72 L 84 64 L Calcium (8.4 - 10.2 mg/dL) 8.8 Total Creatine Kinase (55 - 170 U/L) 92 07/11 07/11 07/11 2306 2145 2124 Chemistry POC Glucose (74 - 106 MG/DL) 74 89 62 L Laboratory Tests 07/12 0230 Hematology WBC (5.0 - 12.0 x10 3/uL) 6.3 RBC (4.70 - 6.10 x10 6/uL) 3.22 L Hgb (14.0 - 18.0 g/dL) 9.0 L Hct (37.0 - 49.0 %) 29.7 L MCV (80 - 94 fL) 92 MCH (27 - 31 pg) 28.0 MCHC (33 - 37 g/dL) 30.3 L RDW (11.5 - 15.5 %) 16.4 H Plt Count (130 - 400 x10 3/uL) 332 MPV (9.4 - 16.4 fL) 10.2 Neut % (Auto) (43 - 65 %) 66.0 H Lymph % (Auto) (20.5 - 45.5 %) 7.0 L Citrus % (Auto) (5.5 - 11.7 %) 13.1 H Eos % (Auto) (0.9 - 2.9 %) 11.2 H Baso % (Auto) (0.2 - 1.0 %) 0.3 Neut # (Auto) (2.2 - 4.8 x10 3/uL) 4.18 Lymph # (Auto) (1.3 - 2.9 x10 3/uL) 0.44 L Citrus # (Auto) (0.3 - 0.8 x10 3/uL) 0.83 H Eos # (Auto) (0.0 - 0.2 x10 3/uL) 0.71 H Baso # (Auto) (0.0 - 0.1 x10 3/uL) 0.02 Immature Gran % (0.0 - 2.0 %) 2.4 H Nucleated RBC % (0 - 1.0 %) 0.0 Diagnosis, Assessment Plan Free Text A P: 07-07-20 CVC WAS D/C SOURCE OF BACTEREMIA !!!!!!!!!!! VANCO + CEFPEIME FOR NOW CHECK SENSITIVITIES. IF REPEAT CX ARE + FOR ENTOEROCOCCCI>>>> [place] A N ECHO 07-08-2019 CXR STAT PNA MIXED BACTEREMIA UNASYN REPEAT BLOOD CX 07-09-2020 CONTIUED FEVER + ESIONPHYLIA ? DRUNG FEVER PNEUMOPERITONUM >>> EXAME IS VERY BENIGHN MIXED BACTERMIA ACUTE RENAL FAILURE WILL NEEED TO DE ESCALTE HIS ABX TO PROTECT/ RES TONRE HIS RENAL FUCTION,. RE START UNASYN IF OK WITH PRIMAY TEAM 07-10-2019 ACUTE RENAL FAILURE PNA BACTERMIA: REPEAT CX ARE NEGETIVE EOSINOPHYLIA BNNIGHN ABDOMINAL EXAME HASD 2 TYPES OF ENTEROBACTER DAPTO + CEFEPIME July 11, 2020 Enterobacte r bacterial septicemia and Enterococcus septicemia, Enterobacter pneumonia, suggest Zosyn IV for the time being June stable, continue same regimen at 1544 [facility] #:[id number] END OF REPORT 2020-07-12 14:55:00-00:[address] [facility] ([facility]) Nephrology Progress Note REPORT#:[id number] REPORT STATUS: Signed DATE:07/12/20 TIME: 1455 PATIENT: JORGE GOINS UNIT #: [id number] ROOM/BED: [address] : [birth year] AGE: 34 SEX: M ATTEND: Raphael Davila MD ADM AUTHOR: Jojo York MD * ALL edits or amendments must be made on the el [employer]/computer document * Objective General VS/I O: Vital Signs: Date Time Temp Pulse Resp B/P B/P Pulse O2 O2 F low FiO2 Mean Ox Delivery Rate 07/12 1449 88 20 100 07/12 1445 87 26 139/61 88 100 07/12 1440 85 23 145/65 93 100 07/12 1435 87 25 149/68 98 100 07/12 1430 87 38 144/67 96 99 07/12 1425 90 26 154/71 102 100 07/12 1420 88 28 158/74 107 100 07/12 1415 84 24 156/73 108 99 07/12 1410 80 20 164/79 114 100 07/12 1405 88 39 160/81 114 100 07/12 1400 83 25 167/81 116 100 07/12 1355 84 25 164/79 113 100 07/12 1350 82 29 171/80 117 100 07/12 1345 80 27 167/82 117 100 07/12 1340 78 22 165/79 113 100 07/12 1335 79 24 170/79 114 100 07/12 1330 82 31 161/76 109 100 07/12 1325 78 24 166/79 113 100 07/12 1320 80 23 164/78 112 100 07/12 1315 79 24 171/81 116 100 07/12 1310 83 27 170/82 118 100 07/12 1305 77 22 163/76 111 100 07/12 1300 85 27 161/77 111 100 07/12 1255 79 24 165/72 108 100 07/12 1250 79 23 166/77 110 100 07/12 1245 79 20 159/74 106 100 07/12 1240 78 23 168/77 111 100 07/12 1235 78 21 167/77 111 100 07/12 1230 80 19 172/79 114 100 07/12 1225 79 20 166/76 109 100 07/12 1220 81 20 170/79 114 100 07/12 1215 80 20 161/77 111 100 07/12 1210 80 19 164/79 114 100 07/12 1205 80 20 161/77 112 100 / 1200 77 19 163/77 111 100 07/12 1155 80 18 160/74 106 100 07/12 1150 83 16 161/76 109 100 07/12 1145 82 19 156/74 106 100 07/12 1140 83 20 149/69 99 100 07/12 1135 73 24 138/62 89 100 07/12 1130 73 24 142/59 91 100 07/12 1125 73 23 142/65 93 100 07/12 1120 71 22 139/62 91 100 07/12 1115 73 22 145/68 98 100 07/12 1110 70 21 135/57 86 100 07/12 1105 73 21 139/63 90 100 07/12 1100 71 22 136/60 87 100 07/12 1055 73 23 149/67 96 100 07/12 1050 71 22 153/70 100 100 07/12 1045 80 23 158/74 106 100 07/12 1040 82 24 157/74 106 100 07/12 1035 81 24 156/75 106 100 07/12 1030 81 23 153/72 104 100 07/12 1025 81 25 156/74 106 100 07/12 1020 80 22 154/72 103 100 07/12 1015 87 26 163/77 110 100 07/12 1012 98 10 40 Tracheostomy collar 07/12 1010 81 23 165/74 106 100 07/12 1005 80 21 169/73 105 100 07/12 1000 81 22 168/73 105 100 07/12 0955 80 24 168/72 104 100 07/12 0950 80 22 163/73 105 100 07/12 0945 80 22 162/73 105 100 07/12 0940 80 18 158/69 104 100 07/12 0935 80 23 161/74 106 100 07/12 0930 80 22 162/73 107 100 07/12 0925 80 22 160/74 106 100 07/12 0920 80 21 154/66 102 100 07/12 0915 82 23 166/74 106 100 07/12 0910 79 23 168/74 107 100 07/12 0905 78 20 165/74 107 100 07/12 0900 79 20 166/74 107 100 07/12 0855 79 23 164/70 106 100 07/12 0850 80 23 168/77 110 100 07/12 0845 80 22 161/65 102 100 0840 80 20 164/75 108 100 / 0835 82 25 162/75 108 100 / 0830 83 24 152/72 104 100 / 0825 72 22 145/63 90 100 / 0820 70 23 152/68 98 100 / 0815 80 20 165/75 108 100 /17 0810 80 22 159/73 105 100 / 0809 79 21 100 / 0805 80 21 163/73 108 100 07/12 0800 98.7 07/12 0800 Tracheostomy collar 07/12 0800 80 20 162/75 108 100 07/12 0755 81 23 164/76 109 100 / 0750 80 23 161/72 106 100 07/12 0745 80 19 163/75 108 100 07/12 0740 82 21 100 / 0738 82 22 161/75 108 100 07/12 0730 81 20 158/74 107 100 07/12 0700 79 23 157/74 106 100 07/12 0651 85 33 100 07/12 0630 82 24 156/73 105 100 07/12 0600 80 27 160/72 103 100 07/12 0531 85 25 175/81 112 / 0500 84 27 165/79 114 / 0430 82 25 161/78 112 99 07/12 0400 98.0 07/12 0400 80 28 172/81 117 100 07/12 0330 83 34 162/72 104 97 07/12 0300 85 30 172/82 118 100 07/12 0230 79 18 161/78 112 96 07/12 0200 69 21 143/69 99 99 07/12 0130 74 23 134/62 89 99 07/12 0100 73 22 145/67 97 99 07/12 0035 85 23 100 07/12 0030 86 22 148/75 103 99 07/12 0000 86 26 142/72 100 99 07/11 2343 100.1 07/11 2330 85 20 148/72 102 99 07/11 2300 85 18 145/73 103 99 07/11 2230 85 20 137/77 101 99 07/11 2200 85 21 157/76 109 99 07/11 2131 86 26 149/67 97 100 07/11 2124 100 10 40 Tracheostomy collar 07/11 2108 87 23 150/62 97 100 07/11 2100 87 25 158/74 106 100 07/11 2029 88 31 161/74 106 100 07/11 2013 87 29 100 07/11 1999 98.4 07/11 1999 40 Tracheostomy collar 07/11 1999 86 30 155/78 111 100 07/11 1930 90 33 116/70 89 100 07/11 1901 86 25 145/60 87 100 07/11 1900 87 28 99 07/11 1831 89 28 158/74 107 07/11 1800 85 25 161/77 110 07/11 1628 87 33 07/11 1600 99.2 07/11 1600 85 25 132/73 95 100 07/11 1530 83 27 125/62 85 100 07/11 1500 86 32 126/59 85 98 24 hour I O ending at 0700: 07/12 0700 07/11 1900 Intake Total 2025.00 1340.00 Output Total 250 510 Balance 1775.00 830.00 Intake, Free 90 Water Intake, IV 1629.00 1200.00 Intake, Tube 306 80 Feeding Intake, Tube 60 Irrigant Number 1 Bowel Movements Output, Stool 400 Output, Urine 250 110 Patient 89 kg Weight Weight Bed scale Measurement Method Medications Active Meds + DC'd Last 24 Hrs Nicardipine HCl 200 ML TITRATE IV Labetalol HCl 10 MG Q6H PRN PRN IV Cefepime HCl 1 GM QPM IV (CAN) Sterile Water 10 ML Piperacillin Sod/Tazobactam Sod 3.375 GM Q12HR I V Sodium Chloride 100 ML Sodium Chloride 1,000 ML BOLUS ONCE ONE IV (DC) Sodium Chloride 1,000 ML .Q8H IV Daptomycin 500 MG Q48H IV (DC) IV Miscellaneous Supplies 1 EACH Hydrocodone Bitart/Acetaminophen 1 TAB Q4H PRN P RN FEED-TUBE Acetaminophen 650 MG Q4H PRN PRN FEED-TUBE Isosorbide Mononitrate 30 MG BID FEED-TUBE Potassium Chloride 100 ML ASDIR PRN IV Propofol 100 ML TITRATE IV (DC) Potassium Bicarbonate/Citric Acid 20 MEQ ASDIR P O (CKD) Potassium Chloride 100 ML ASDIR PRN IV Hydralazine HCl 100 MG Q8HR PO Labetalol HCl 400 MG Q8HR PO Magnesium 100 ML ASDIR PRN IV Magnesium Sulfate 50 ML ASDIR PRN IV Magnesium Sulfate 100 ML ASDIR PRN IV Clonidine HCl 0.2 MG Q7D TRANSDERM (CKD) Amlodipine Besylate 5 MG Q12HR PO Aspirin 81 MG DAILY FEED-TUBE Atorvastatin Calcium 40 MG DAILY FEED-TUBE Albuterol/Ipratropium 3 ML RTQ6H INH Dextrose/Water 25 ML ASDIR PRN IV Glucagon 1 MG ASDIR PRN IM Insulin Human Lispro LOW DOSE SCALE ASDIR SUBQ Sterile Water 1 ML ASDIR PRN IM Famotidine 20 MG DAILY PO Heparin Sodium (Porcine) 5,000 UNIT Q12HR SUBQ Physical Exam General appearance: no acute distress Head/eyes: normal conjunctiva/sclera Neck: trach in place Respiratory: symmetric expansion Genitourinary: zuñiga, urine (appears pink) Extremities: pedal edema improved Musculoskeletal: normal inspection Neuro/RADIOTELEGRAPHIST: SEDATED Hemodialysis access: Type: vascath Psychiatry: unable to evaluate Diagnosis, Assessment Plan Free Text A P: JENNIFER hypotension AAA lactic acidosis severe metabolic acidosis- resolved Metabolic alkalosis - resolved will give fluid bolus and start on maintennace monitor UO stop losartan hold diuretics- fluid status has much improved am labs will follow up at 1516 RPT #:[id number] END OF REPORT 2020-07-12 14:49:00-00:00 [facility] Critical Care Progress Note REPORT#:[id number] REPORT STATUS: Signed DATE:07/12/20 TIME: 1449 PATIENT: JORGE GOINS UNIT #: [id number] ROOM/BED: [address] : [address] AGE: 34 SEX: M ATTEND: Luis M Olmedo MD ADM AUTHOR: Papi England MD * ALL edits or amendments must be made on the el [employer]/computer document * Subjective Chief Complaint: in renal failure more awake on iv fluid Objective General VS/I O Last Documented: Result Date Time Pulse Ox 100 07/12 1245 B/P 159/74 07/12 1245 B/P Mean 106 07/12 1245 Pulse 79 07/12 1245 Resp 20 07/12 1245 FiO2 40 07/12 1012 O2 Delivery Tracheostomy collar 07/12 1012 O2 Flow Rate 10 07/12 1012 Temp 37.1 07/12 0800 24 hour I O ending at 0700: 07/12 0700 07/11 1900 Intake Total 2025.00 1340.00 Output Total 250 510 Balance 1775.00 830.00 Intake, Free 90 Water Intake, IV 1629.00 1200.00 Intake, Tube 306 80 Feeding Intake, Tube 60 Irrigant Number 1 Bowel Movements Output, Stool 400 Output, Urine 250 110 Patient 89 kg Weight Weight Bed scale Measurement Method PATIENT WEIGHT: Weight (lb): 196 Weight (oz): 3.38 Weight (kg): 89.000 Medications: Active Meds + DC'd Last 24 Hrs Nicardipine HCl 200 ML TITRATE IV Labetalol HCl 10 MG Q6H PRN PRN IV Cefepime HCl 1 GM QPM IV (CAN) Sterile Water 10 ML Piperacillin Sod/Tazobactam Sod 3.375 GM Q12HR I V Sodium Chloride 100 ML Sodium Chloride 1,000 ML BOLUS ONCE ONE IV (DC) Sodium Chloride 1,000 ML .Q8H IV Daptomycin 500 MG Q48H IV (DC) IV Miscellaneous Supplies 1 EACH Hydrocodone Bitart/Acetaminophen 1 TAB Q4H PRN P RN FEED-TUBE Acetaminophen 650 MG Q4H PRN PRN FEED-TUBE Isosorbide Mononitrate 30 MG BID FEED-TUBE Potassium Chloride 100 ML ASDIR PRN IV Propofol 100 ML TITRATE IV (DC) Potassium Bicarbonate/Citric Acid 20 MEQ ASDIR P O (CKD) Potassium Chloride 100 ML ASDIR PRN IV Hydralazine HCl 100 MG Q8HR PO Labetalol HCl 400 MG Q8HR PO Magnesium 100 ML ASDIR PRN IV Magnesium Sulfate 50 ML ASDIR PRN IV Magnesium Sulfate 100 ML ASDIR PRN IV Clonidine HCl 0.2 MG Q7D TRANSDERM (CKD) Amlodipine Besylate 5 MG Q12HR PO Aspirin 81 MG DAILY FEED-TUBE Atorvastatin Calcium 40 MG DAILY FEED-TUBE Albuterol/Ipratropium 3 ML RTQ6H INH Dextrose/Water 25 ML ASDIR PRN IV Glucagon 1 MG ASDIR PRN IM Insulin Human Lispro LOW DOSE SCALE ASDIR SUBQ Sterile Water 1 ML ASDIR PRN IM Famotidine 20 MG DAILY PO Heparin Sodium (Porcine) 5,000 UNIT Q12HR SUBQ Physical Exam General appearance: confused Head/Eyes: atraumatic, normocephalic Cardiovascular: normal heart sounds, normal S1 S 2, normal rate and rhythm Respiratory/Chest: aerating well, clear to auscu ltation Abdomen: soft, non-tender, normal bowel sounds, no distention Extremities: no edema Neuro/RADIOTELEGRAPHIST: disoriented Results Findings/Data: Laboratory Tests 07/12/20 0230: [Embedded Image Not Available] Laboratory Tests 07/12 07/12 07/12 07/12 07/12 0650 0537 0323 0231 0230 Chemistry Sodium (137 - 145 mmol/L) 149 H Potassium (3.4 - 5.0 mmol/L) 4.1 Chloride (98 - 107 mmol/L) 114 H Carbon Dioxide (22 - 30 mmol/L) 15 L BUN (9 - 20 mg/dL) 78 H Creatinine (0.7 - 1.3 mg/dL) 6.8 H Glomerular Filtr Rate (>60) 12 L Glucose (74 - 106 mg/dL) 73 L POC Glucose (74 - 106 MG/DL) 83 72 L 84 64 L Calcium (8.4 - 10.2 mg/dL) 8.8 Total Creatine Kinase (55 - 170 U/L) 92 07/11 07/11 07/11 2306 2145 2124 Chemistry POC Glucose (74 - 106 MG/DL) 74 89 62 L Laboratory Tests 07/12 0230 Hematology WBC (5.0 - 12.0 x10 3/uL) 6.3 RBC (4.70 - 6.10 x10 6/uL) 3.22 L Hgb (14.0 - 18.0 g/dL) 9.0 L Hct (37.0 - 49.0 %) 29.7 L MCV (80 - 94 fL) 92 MCH (27 - 31 pg) 28.0 MCHC (33 - 37 g/dL) 30.3 L RDW (11.5 - 15.5 %) 16.4 H Plt Count (130 - 400 x10 3/uL) 332 MPV (9.4 - 16.4 fL) 10.2 Neut % (Auto) (43 - 65 %) 66.0 H Lymph % (Auto) (20.5 - 45.5 %) 7.0 L Citrus % (Auto) (5.5 - 11.7 %) 13.1 H Eos % (Auto) (0.9 - 2.9 %) 11.2 H Baso % (Auto) (0.2 - 1.0 %) 0.3 Neut # (Auto) (2.2 - 4.8 x10 3/uL) 4.18 Lymph # (Auto) (1.3 - 2.9 x10 3/uL) 0.44 L Citrus # (Auto) (0.3 - 0.8 x10 3/uL) 0.83 H Eos # (Auto) (0.0 - 0.2 x10 3/uL) 0.71 H Baso # (Auto) (0.0 - 0.1 x10 3/uL) 0.02 Immature Gran % (0.0 - 2.0 %) 2.4 H Nucleated RBC % (0 - 1.0 %) 0.0 Diagnosis, Assessment Plan Free text A P: 34 year old male with history of aortic dissecti on s/p EVAR came in for hypertensive urgency A/P: Neuro -MRI multiple ischemic cva Neuro status slowly improving #AMS as above Pulm -s/p trach On TC CV #s/p Cardiac Arrest - PEA hypotensive. ROSC achieved after 9 minutes - likely from cardiogenic shock EF 30-34% - Aortic dissection ruled out from CTA chest , a bdomen and pelvis #hx of EVAR for aortic dissection and h/o endole ak in the past - per vascular surgery -uncontrolled hypertension resume cardne keep systoli cBP around 140 # Fever abx GI on tube feeidng Renal Acute renal failure IV fluid May need HD d/w Renal gi ppx: pepcid dvt ppx: heparin Diet: tube feeds condition critical prognosis guarded CC time more than 45 minutes Reviewed chart/images Excludes all procedure time at 1451 RPT #:[id number] END OF REPORT 2020-07-11 19:58:00-00:[address] [facility] ([facility]) Cardiology Progress Note REPORT#:[id number] REPORT STATUS: Signed DATE:07/11/20 TIME: 1957 PATIENT: JORGE GOINS UNIT #: [id number] ROOM/BED: [address] : [birth year] AGE: 34 SEX: M ATTEND: Luis M Olmedo MD ADM AUTHOR: Giancarlo Phan MD * ALL edits or amendments must be made on the [employer] document * Subjective Free Text Subj Notes Free Text Subj Notes: Patient is remarkably follow ing commands. He tracks this his hands to commands. Otherwise really no other acute changes Objective General VS/I O: 24 hour I O ending at 0700: 07/11 0700 07/10 1900 Intake Total 115 890.00 Output Total 650 640 Balance -535 250.00 Intake, Free 30 Water Intake, IV 630.00 Intake, Tube 85 60 Feeding Intake, Tube 200 Irrigant Number 3 Bowel Movements Output, Stool 400 500 Output, Urine 250 140 Patient 85.9 kg 92.079 kg Weight Weight Bed scale Measurement Method Vital Signs: Date Time Temp Pulse Resp B/P B/P Pulse O2 O2 Fl ow FiO2 Mean Ox Delivery Rate 07/11 1628 87 33 07/11 1600 37.3 07/11 1600 85 25 132/73 95 100 07/11 1530 83 27 125/62 85 100 07/11 1500 86 32 126/59 85 98 07/11 1430 84 20 117/57 82 98 07/11 1400 89 29 119/60 81 99 07/11 1330 85 23 133/63 91 100 07/11 1300 83 19 132/63 91 100 07/11 1230 91 22 123/61 85 99 07/11 1200 37.7 07/11 1200 91 17 112/55 77 100 07/11 1130 85 20 119/59 83 100 07/11 1100 88 13 118/55 78 99 07/11 1033 100 Ventilator 40 07/11 1033 85 100 40 07/11 1030 87 18 115/56 79 99 07/11 1000 93 22 125/56 81 99 07/11 0930 96 23 125/61 86 98 07/11 0900 15 40 Tracheostomy collar 07/11 0900 93 28 124/60 85 99 07/11 0830 93 28 117/56 80 97 07/11 0800 37.5 07/11 0800 94 29 117/58 82 99 07/11 0730 96 16 105/53 76 98 07/11 0700 96 22 115/55 74 98 07/11 0639 101 13 134/92 109 100 01/16 0630 96 124/101 109 94 01/16 0600 95 30 139/69 96 98 07/11 0530 93 24 141/66 95 98 07/11 0500 93 28 138/73 99 100 07/11 0441 37.9 07/11 0430 93 28 127/88 102 100 07/11 0400 93 22 117/58 81 99 07/11 0330 96 23 147/70 101 100 07/11 0324 91 32 141/65 93 99 07/11 0300 97 61 147/71 100 99 07/11 0230 86 8 145/69 99 100 07/11 0200 89 15 130/63 89 100 07/11 0130 88 23 127/74 94 100 07/11 0125 86 17 100 07/11 0100 92 18 128/64 88 100 07/11 0031 37.7 07/11 0030 91 21 128/78 97 100 07/11 0000 93 18 120/56 81 100 07/10 2330 97 28 120/66 87 100 07/10 2300 98 23 124/61 86 100 07/10 2230 96 19 115/55 78 100 07/10 2227 40 07/10 2200 90 20 127/61 86 100 07/10 2130 91 19 129/60 86 100 07/10 2100 81 16 114/58 82 100 07/10 2030 97 22 124/70 91 100 07/10 2025 37.9 07/10 1999 96 29 131/86 99 100 PATIENT WEIGHT: Weight (lb): 189 Weight (oz): 6.03 Weight (kg): 85.900 Physical Exam Head/Eyes: atraumatic, normocephalic ENT: moist mucosal membranes, normal nose Neck: non-tender, supple/no meningismus, traches otomy prsent Cardiovascular: CV assessment: regular rate and rhythm, no murm ur Respiratory: no distress, coarse breathsounds, m echanically ventialted Abdomen: soft, non-tender Upper extremity: UE assessment: normal capillary refill, normal temperature Lower extremity: LE assessment: normal capillary refill, normal temperature, no edema Musculoskeletal: normal inspection Neuro/RADIOTELEGRAPHIST: vented via trachesotomy, not followin g commands Diagnosis, Assessment Plan Free Text DxA P Notes Free Text DxA P Notes: 1. Hypertensive urgency/emergency - presented with severely elevated BP requiring 2 IV infusions, subsequently suffered PEA cardiac arrest - BP control improving - cont hydralazine 100mg Q8H, labetalol 400mg Q 8H, clonidine patch - norvasc 5mg PO BID and ISMN 30mg BID - increase losartan to 50mg QD 2. Cardiac arrest - PEA in etiology, pt became hypothermic and sub sequently bradycardic 3. Type B aortic dissection s/p EVAR - has residual descending aortic dissect ion extending into iliacs. No evidence of rupture on CTA. Reviewed by vascular surgery - appreciate assitance - optimal BP Control as above 4. Acute on chronic systolic heart failure - likely hypertensive heart disease due to long standing elevated BP - warm and well perfused on examination - cont lasix gtt 5. Shock - resolved 6. JENNIFER on CKD stage 3 - improved - likely secondary to fluctuation in BP - nephrology following, appreciate recommendatio ns - monitor UOP 7. Acute hypoxic respiratory failure - now has tracheostomy- per ICU team 8. Stroke: - CT head and MRI with evidence of prior CVA - TTE with possible PFO - mo nitor for neurological improvement then will discuss with family potential PFO closure if patient is a cadidate 9. Multiple different species of bacteri a growing: We will defer to infectious disease if the need/require echo otherwise we will continue conservative medical management Will follow. Please call if questions. [facility] Cardiology Electronically Signed by Giancarlo Phan MD on 06/26 12/14 at 2000 RPT #:[id number] END OF REPORT 2020-07-11 17:25:00-00:00 [facility]) Critical Care Progress Note REPORT#:[id number] REPORT STATUS: Signed DATE:07/11/20 TIME: 1724 PATIENT: JORGE GOINS UNIT #: [id number] ROOM/BED: [address] : [birth year] AGE: 34 SEX: M ATTEND: Raphael Davila MD ADM AUTHOR: Edy Olmedo MD * ALL edits or amendments must be made on the el [employer]/computer document * Subjective Chief Complaint: s/p trach febrile mental status unchanged fever Objective Physical Exam Head/Eyes: atraumatic, normocephalic Cardiovascular: normal heart sounds, normal S1 S 2, normal rate and rhythm Respiratory/Chest: aerating well, clear to auscu ltation Abdomen: soft, non-tender, normal bowel sounds, no distention Extremities: no edema Neuro/RADIOTELEGRAPHIST: disoriented Diagnosis, Assessment Plan Free text A P: 34 year old male with history of aortic dissecti on s/p EVAR came in for hypertensive urgency A/P: Neuro -intubated -MRI multiple ischemic cva #AMS -MRI multifocal cva -on versed -neuro following Pulm -s/p trach -wean as tolerated CV #s/p Cardiac Arrest - PEA hypotensive. ROSC achieved after 9 minutes - likely from cardiogenic shock EF 30-34% - Aortic dissection ruled out from CTA chest , a bdomen and pelvis #hx of EVAR for aortic dissection and h/o endole ak in the past - per vascular surgery -uncontrolled hypertension still requiring esmolol and cardene # Fever carvajal culture abx GI vomitted yesterday ileus NGT place to low intermittent suction now abdomen soft and bowel sounds heard will start clamping NGT and trickle feeds and se e how he does Renal stable gi ppx: pepcid dvt ppx: heparin Diet: tube feeds condition critical prognosis guarded CC time more than 45 minutes Reviewed chart/images Excludes all procedure time Electronically Signed by Edy Olmedo MD on 11/13 at 0122 RPT #:[id number] END OF REPORT 2020-07-11 15:48:00-00:[address] [facility] ([facility]) Infectious Dis. Progress Note REPORT#:[id number] REPORT STATUS: Signed DATE:07/11/20 TIME: 8 PATIENT: JORGE GOINS UNIT #: [id number] ROOM/BED: [address] : [birth year] AGE: 34 SEX: M ATTEND: Luis M Olmedo MD ADM AUTHOR: Germain Ashley * ALL edits or amendments must be made on the el [employer]/computer document * Subjective Chief Complaint: 07-07-20 INTUBATED UNRESPONSIVE BACTERMIA CVC WAS TAKEN OUT 07-08-2019 BREAHTING FAST UNRESPONSIVE NO FEVER ON THE VENT 07-09-2019 COMFRTABEL TODAY ON THE VENT SEDATED FEVER RENAL FUNCTION NOTED 07-10-2020 MORE AWAKE RESPONDS TO COMMNANDS RENAL FUNCTION NOTED: MAKING 160 M OF URINE SITLL ON THE VENT HPI: Chart reviewed, patient with tracheostomy, unabl e to express himself Objective General VS/I O: Last Documented: Result Date Time Pulse 87 07/11 1628 Resp 33 07/11 1628 Temp 99.2 07/11 1600 Pulse Ox 100 07/11 1600 B/P 132/73 07/11 1600 B/P Mean 95 07/11 1600 FiO2 40 07/11 1033 O2 Delivery Ventilator 07/11 1033 O2 Flow Rate 15 07/11 0900 Vital Signs Date Temp Pulse Resp B/P B/P Mean Pulse Ox FiO2 07/10-07/11 99.2-100.3 81-101 8-61 105-147/53-10 1 74-109 94-100 40 24 hour I O ending at 0700: 07/11 0700 07/10 1900 Intake Total 115 890.00 Output Total 650 640 Balance -535 250.00 Intake, Free 30 Water Intake, IV 630.00 Intake, Tube 85 60 Feeding Intake, Tube 200 Irrigant Number 3 Bowel Movements Output, Stool 400 500 Output, Urine 250 140 Patient 85.9 kg 92.079 kg Weight Weight Bed scale Measurement Method PATIENT WEIGHT: Weight (lb): 189 Weight (oz): 6.03 Weight (kg): 85.900 Medications: Active Meds + DC'd Last 24 Hrs Piperacillin Sod/Tazobactam Sod 3.375 GM Q8HR IV (UNV) Sodium Chloride 100 ML Cefepime HCl 1 GM QPM IV (CANr) Sterile Water 10 ML Sodium Chloride 1,000 ML BOLUS ONCE ONE IV (DC) Sodium Chloride 1,000 ML .Q8H IV Daptomycin 500 MG Q48H IV IV Miscellaneous Supplies 1 EACH Cefepime HCl 1 GM Q12HR IV (DC) Sterile Water 10 ML Hydrocodone Bitart/Acetaminophen 1 TAB Q4H PRN P RN FEED-TUBE Acetaminophen 650 MG Q4H PRN PRN FEED-TUBE Losartan Potassium 50 MG DAILY PO (DC) Isosorbide Mononitrate 30 MG BID FEED-TUBE Potassium Bicarbonate/Citric Acid 20 MEQ DAILY F EED-TUBE (DC) Potassium Chloride 100 ML ASDIR PRN IV Propofol 100 ML TITRATE IV (CKD) Potassium Bicarbonate/Citric Acid 20 MEQ ASDIR P O (CKD) Potassium Chloride 100 ML ASDIR PRN IV Hydralazine HCl 100 MG Q8HR PO Labetalol HCl 400 MG Q8HR PO Magnesium 100 ML ASDIR PRN IV Magnesium Sulfate 50 ML ASDIR PRN IV Magnesium Sulfate 100 ML ASDIR PRN IV Clonidine HCl 0.2 MG Q7D TRANSDERM (CKD) Amlodipine Besylate 5 MG Q12HR PO Aspirin 81 MG DAILY FEED-TUBE Atorvastatin Calcium 40 MG DAILY FEED-TUBE Albuterol/Ipratropium 3 ML RTQ6H INH Dextrose/Water 25 ML ASDIR PRN IV Glucagon 1 MG ASDIR PRN IM Insulin Human Lispro LOW DOSE SCALE ASDIR SUBQ Sterile Water 1 ML ASDIR PRN IM Famotidine 20 MG DAILY PO Heparin Sodium (Porcine) 5,000 UNIT Q12HR SUBQ Physical Exam General appearance: alert, awake ENT: TRACH WITH A LOT OF MUCOID SECREIONS Cardiovascular: tachycardia Respiratory: ON VENT 50 % Abdomen: non-tender, soft, no distention, no gua rding, no rebound Genitourinary: zuñiga Skin: dry Results Findings/Data: Laboratory Tests 07/11 0345 Blood Gas Puncture Site R Radial ABG pH (7.35 - 7.45 pH units) 7.36 ABG pCO2 (35 - 48 mmHg) 35.4 ABG pO2 (83 - 108 mmHg) 194.5 H ABG PO2/FiO2 Ratio (mm/Hg) 486.25 ABG HCO3 (21 - 28 mmol/L) 20.1 L ABG Total CO2 (22 - 29 mmol/L) 20.3 L ABG O2 Sat Calc/Denise (94 - 98 %) 99.7 H ABG Base Excess (-2 - 3 mmol/L) -4.7 L Emmanuel Test Positive Sodium (138 - 146 mmol/L) 140 Potassium (3.5 - 4.5 mmol/L) 3.9 Ionized Calcium (1.15 - 1.33 MMOL/L) 1.00 L O2 Delivery Device Adult Vent Vent Mode CPAP/PS FiO2 (%) 40 Instrument (Specimen Descript) Arterial Laboratory Tests 07/11 07/11 07/11 07/11 07/11 0824 0411 0409 0345 0306 Chemistry Sodium (137 - 145 mmol/L) 145 Potassium (3.4 - 5.0 mmol/L) 4.1 Chloride (98 - 107 mmol/L) 109 H Carbon Dioxide (22 - 30 mmol/L) 18 L BUN (9 - 20 mg/dL) 72 H Creatinine (0.7 - 1.3 mg/dL) 5.6 H Glomerular Filtr Rate (>60) 15 L Glucose (74 - 106 mg/dL) 68 L POC Glucose (74 - 106 MG/DL) 67 L 62 L 67 L 70 L Calcium (8.4 - 10.2 mg/dL) 9.2 07/10 2312 Chemistry POC Glucose (74 - 106 MG/DL) 62 L Laboratory Tests 07/11 0411 Hematology WBC (5.0 - 12.0 x10 3/uL) 9.5 RBC (4.70 - 6.10 x10 6/uL) 3.29 L Hgb (14.0 - 18.0 g/dL) 9.2 L Hct (37.0 - 49.0 %) 30.6 L MCV (80 - 94 fL) 93 MCH (27 - 31 pg) 28.0 MCHC (33 - 37 g/dL) 30.1 L RDW (11.5 - 15.5 %) 16.4 H Plt Count (130 - 400 x10 3/uL) 368 MPV (9.4 - 16.4 fL) 10.5 Neut % (Auto) (43 - 65 %) 73.0 H Lymph % (Auto) (20.5 - 45.5 %) 5.3 L Citrus % (Auto) (5.5 - 11.7 %) 11.7 Eos % (Auto) (0.9 - 2.9 %) 7.7 H Baso % (Auto) (0.2 - 1.0 %) 0.3 Neut # (Auto) (2.2 - 4.8 x10 3/uL) 6.92 H Lymph # (Auto) (1.3 - 2.9 x10 3/uL) 0.50 L Citrus # (Auto) (0.3 - 0.8 x10 3/uL) 1.11 H Eos # (Auto) (0.0 - 0.2 x10 3/uL) 0.73 H Baso # (Auto) (0.0 - 0.1 x10 3/uL) 0.03 Immature Gran % (0.0 - 2.0 %) 2.0 Nucleated RBC % (0 - 1.0 %) 0.0 Diagnosis, Assessment Plan Free Text A P: 07-07-20 CVC WAS D/C SOURCE OF BACTEREMIA !!!!!!!!!!! VANCO + CEFPEIME FOR NOW CHECK SENSITIVITIES. IF REPEAT CX ARE + FOR ENTOEROCOCCCI>>>> [place] A N ECHO 07-08-2019 CXR STAT PNA MIXED BACTEREMIA UNASYN REPEAT BLOOD CX 07-09-2020 CONTIUED FEVER + ESIONPHYLIA ? DRUNG FEVER PNEUMOPERITONUM >>> EXAME IS VERY BENIGHN MIXED BACTERMIA ACUTE RENAL FAILURE WILL NEEED TO DE ESCALTE HIS ABX TO PROTECT/ RES TONRE HIS RENAL FUCTION,. RE START UNASYN IF OK WITH PRIMAY TEAM 07-10-2019 ACUTE RENAL FAILURE PNA BACTERMIA: REPEAT CX ARE NEGETIVE EOSINOPHYLIA BNNIGHN ABDOMINAL EXAME HASD 2 TYPES OF ENTEROBACTER DAPTO + CEFEPIME July 11, 2020 Enterobacte r bacterial septicemia and Enterococcus septicemia, Enterobacter pneumonia, suggest Zosyn IV for the time being at [facility] RPT #:[id number] END OF REPORT 2020-07-11 13:48:00-00:00 [facility] Nephrology Progress Note REPORT#:[id number] REPORT STATUS: Signed DATE:07/11/20 TIME: 1348 PATIENT: JORGE GOINS UNIT #: [id number] ROOM/BED: [address] : [birth year] AGE: 34 SEX: M ATTEND: Yoseph Olmedo MD ADM AUTHOR: Jojo York MD * ALL edits or amendments must be made on the [employer]/computer document * Subjective Comments: events noted Objective General VS/I O: Vital Signs: Date Time Temp Pulse Resp B/P B/P Pulse O2 O2 Flow FiO2 Mean Ox Delivery Rate 07/11 1033 100 Ventilator 40 07/11 1033 85 100 40 07/11 0639 101 13 134/92 109 100 01/16 0600 95 30 139/69 96 98 / 0530 93 24 141/66 95 98 /16 0500 93 28 138/73 99 100 07/11 0441 100.3 07/11 0430 93 28 127/88 102 100 /16 0400 93 22 117/58 81 99 / 0330 96 23 147/70 101 100 07/11 0324 91 32 141/65 93 99 / 0300 97 61 147/71 100 99 / 0230 86 8 145/69 99 100 /16 0200 89 15 130/63 89 100 07/11 0130 88 23 127/74 94 100 07/11 0125 86 17 100 / 0100 92 18 128/64 88 100 07/11 0031 99.8 07/11 0030 91 21 128/78 97 100 07/11 0000 93 18 120/56 81 100 07/10 2330 97 28 120/66 87 100 07/10 2300 98 23 124/61 86 100 07/10 2230 96 19 115/55 78 100 07/10 2227 40 07/10 2200 90 20 127/61 86 100 07/10 2130 91 19 129/60 86 100 07/10 2100 81 16 114/58 82 100 07/10 2030 97 22 124/70 91 100 07/10 2026 100.3 07/10 2000 96 29 131/86 99 100 07/10 1930 90 15 122/57 81 100 07/10 1900 89 21 126/60 87 100 07/10 1810 96 38 98 07/10 1802 87 100 40 07/10 1800 98 38 135/67 91 97 07/10 1731 96 39 121/63 85 99 07/10 1700 94 48 101/66 78 100 07/10 1630 95 8 111/56 78 100 07/10 1600 99.2 07/10 1600 88 21 109/59 78 100 07/10 1530 88 19 98/51 71 98 07/10 1501 98 38 84/46 59 96 07/10 1500 93 38 94 07/10 1430 96 57 110/51 74 99 07/10 1400 96 32 113/55 79 99 24 hour I O ending at 0700: 07/11 0700 07/10 1900 Intake Total 115 890.00 Output Total 650 640 Balance -535 250.00 Intake, Free 30 Water Intake, IV 630.00 Intake, Tube 85 60 Feeding Intake, Tube 200 Irrigant Number 3 Bowel Movements Output, Stool 400 500 Output, Urine 250 140 Patient 85.9 kg 92.079 kg Weight Weight Bed scale Measurement Method Medications Active Meds + DC'd Last 24 Hrs Cefepime HCl 1 GM QPM IV Sterile Water 10 ML Daptomycin 500 MG Q48H IV IV Miscellaneous Supplies 1 EACH Cefepime HCl 1 GM Q12HR IV (DC) Sterile Water 10 ML Hydrocodone Bitart/Acetaminophen 1 TAB Q4H PRN P RN FEED-TUBE Acetaminophen 650 MG Q4H PRN PRN FEED-TUBE Losartan Potassium 50 MG DAILY PO (DC) Isosorbide Mononitrate 30 MG BID FEED-TUBE Potassium Bicarbonate/Citric Acid 20 MEQ DAILY F EED-TUBE (DC) Potassium Chloride 100 ML ASDIR PRN IV Propofol 100 ML TITRATE IV (CKD) Potassium Bicarbonate/Citric Acid 20 MEQ ASDIR P O (CKD) Potassium Chloride 100 ML ASDIR PRN IV Hydralazine HCl 100 MG Q8HR PO Labetalol HCl 400 MG Q8HR PO Magnesium 100 ML ASDIR PRN IV Magnesium Sulfate 50 ML ASDIR PRN IV Magnesium Sulfate 100 ML ASDIR PRN IV Clonidine HCl 0.2 MG Q7D TRANSDERM (CKD) Amlodipine Besylate 5 MG Q12HR PO Aspirin 81 MG DAILY FEED-TUBE Atorvastatin Calcium 40 MG DAILY FEED-TUBE Albuterol/Ipratropium 3 ML RTQ6H INH Dextrose/Water 25 ML ASDIR PRN IV Glucagon 1 MG ASDIR PRN IM Insulin Human Lispro LOW DOSE SCALE ASDIR SUBQ Sterile Water 1 ML ASDIR PRN IM Famotidine 20 MG DAILY PO Heparin Sodium (Porcine) 5,000 UNIT Q12HR SUBQ Physical Exam General appearance: no acute distress Head/eyes: normal conjunctiva/sclera Neck: trach in place Respiratory: symmetric expansion Genitourinary: zuñiga, urine (appears pink) Extremities: pedal edema improved Musculoskeletal: normal inspection Neuro/RADIOTELEGRAPHIST: SEDATED Hemodialysis access: Type: vascath Psychiatry: unable to evaluate Results Findings/Data: Laboratory Tests 07/11 0345 Blood Gas Puncture Site R Radial ABG pH (7.35 - 7.45 pH units) 7.36 ABG pCO2 (35 - 48 mmHg) 35.4 ABG pO2 (83 - 108 mmHg) 194.5 H ABG PO2/FiO2 Ratio (mm/Hg) 486.25 ABG HCO3 (21 - 28 mmol/L) 20.1 L ABG Total CO2 (22 - 29 mmol/L) 20.3 L ABG O2 Sat Calc/Denise (94 - 98 %) 99.7 H ABG Base Excess (-2 - 3 mmol/L) -4.7 L Emmanuel Test Positive Sodium (138 - 146 mmol/L) 140 Potassium (3.5 - 4.5 mmol/L) 3.9 Ionized Calcium (1.15 - 1.33 MMOL/L) 1.00 L O2 Delivery Device Adult Vent Vent Mode CPAP/PS FiO2 (%) 40 Instrument (Specimen Descript) Arterial Laboratory Tests 07/11 07/11 07/11 07/11 07/11 0824 0411 0409 0345 0306 Chemistry Sodium (137 - 145 mmol/L) 145 Potassium (3.4 - 5.0 mmol/L) 4.1 Chloride (98 - 107 mmol/L) 109 H Carbon Dioxide (22 - 30 mmol/L) 18 L BUN (9 - 20 mg/dL) 72 H Creatinine (0.7 - 1.3 mg/dL) 5.6 H Glomerular Filtr Rate (>60) 15 L Glucose (74 - 106 mg/dL) 68 L POC Glucose (74 - 106 MG/DL) 67 L 62 L 67 L 70 L Calcium (8.4 - 10.2 mg/dL) 9.2 07/10 2312 Chemistry POC Glucose (74 - 106 MG/DL) 62 L Laboratory Tests 07/11 0411 Hematology WBC (5.0 - 12.0 x10 3/uL) 9.5 RBC (4.70 - 6.10 x10 6/uL) 3.29 L Hgb (14.0 - 18.0 g/dL) 9.2 L Hct (37.0 - 49.0 %) 30.6 L MCV (80 - 94 fL) 93 MCH (27 - 31 pg) 28.0 MCHC (33 - 37 g/dL) 30.1 L RDW (11.5 - 15.5 %) 16.4 H Plt Count (130 - 400 x10 3/uL) 368 MPV (9.4 - 16.4 fL) 10.5 Neut % (Auto) (43 - 65 %) 73.0 H Lymph % (Auto) (20.5 - 45.5 %) 5.3 L Citrus % (Auto) (5.5 - 11.7 %) 11.7 Eos % (Auto) (0.9 - 2.9 %) 7.7 H Baso % (Auto) (0.2 - 1.0 %) 0.3 Neut # (Auto) (2.2 - 4.8 x10 3/uL) 6.92 H Lymph # (Auto) (1.3 - 2.9 x10 3/uL) 0.50 L Citrus # (Auto) (0.3 - 0.8 x10 3/uL) 1.11 H Eos # (Auto) (0.0 - 0.2 x10 3/uL) 0.73 H Baso # (Auto) (0.0 - 0.1 x10 3/uL) 0.03 Immature Gran % (0.0 - 2.0 %) 2.0 Nucleated RBC % (0 - 1.0 %) 0.0 Radiology data: Recent Impressions: ULTRASOUND - DUP ABD/PEL/SC COMP 07/11 1244 Report Impression - Status: SIGNED Entered: 07/11/2020 1343 IMPRESSION: 1. Unremarkable duplex assessment of the main re nal artery. No findings to indicate renal artery stenosis. Impression By: [email or web address] Keyon Ramires MD Diagnosis, Assessment Plan Free Text A P: JENNIFER hypotension AAA lactic acidosis severe metabolic acidosis- resolved Metabolic alkalosis - resolved will give fluid bolus and start on maintennace monitor UO stop losartan hold diuretics- fluid status has much improved am labs will follow up at 2042 RPT #:[id number] END OF REPORT 2020-07-11 12:10:00-00:[address] [facility] ([facility]) Neurology Progress Note REPORT#:[id number] REPORT STATUS: Signed DATE:07/11/20 TIME: 1210 PATIENT: JORGE GOINS UNIT #: [id number] ROOM/BED: [address] : [birth year] AGE: 34 SEX: M ATTEND: Luis M Olmedo MD ADM AUTHOR: Mynor Murillo * ALL edits or amendments must be made on the rimidi/computer document * Subjective Chief Complaint: Lethargy and AMS Unable to obtain: altered mental status Comments: no new events overnight neurologically Objective General VS: Last Documented: Result Date Time Pulse Ox 100 07/11 1033 FiO2 40 07/11 1033 O2 Delivery Ventilator 07/11 1033 Pulse 85 07/11 1033 B/P 134/92 07/11 0639 B/P Mean 109 07/11 0639 Resp 13 07/11 0639 Temp 100.3 07/11 0441 O2 Flow Rate 15 07/10 0800 PATIENT WEIGHT: Weight (lb): 189 Weight (oz): 6.03 Weight (kg): 85.900 Medications Current Home Medications ALBUTEROL (PROAIR HFA 90 MCG/ACT 8.5 GM) 2 PUFF INH RTQ6H PRN PRN SOB ASPIRIN EC (ECOTRIN) 81 MG PO DAILY CARVEDILOL (COREG) 25 MG PO BID MEALS ACETAMINOPHEN/CODEINE (TYLENOL WITH CODE INE #4 300/60 MG) 1 TAB PO Q6H PRN PRN PAIN ATORVASTATIN (LIPITOR) 20 MG PO BEDTIME LOSARTAN (COZAAR) 100 MG PO DAILY NIFEdipine CC (ADALAT CC) 90 MG PO Q12HR HYDROCHLOROTHIAZIDE (HYDRODIURIL) 25 MG PO DAILY Active Meds + DC'd Last 24 Hrs Cefepime HCl 1 GM QPM IV Sterile Water 10 ML Sodium Chloride 500 ML BOLUS ONCE ONE IV (DC) Daptomycin 500 MG Q48H IV IV Miscellaneous Supplies 1 EACH Cefepime HCl 1 GM Q12HR IV (DC) Sterile Water 10 ML Hydrocodone Bitart/Acetaminophen 1 TAB Q4H PRN P RN FEED-TUBE Acetaminophen 650 MG Q4H PRN PRN FEED-TUBE Losartan Potassium 50 MG DAILY PO (DC) Isosorbide Mononitrate 30 MG BID FEED-TUBE Potassium Bicarbonate/Citric Acid 20 MEQ DAILY F EED-TUBE (DC) Potassium Chloride 100 ML ASDIR PRN IV Propofol 100 ML TITRATE IV (CKD) Potassium Bicarbonate/Citric Acid 20 MEQ ASDIR P O (CKD) Potassium Chloride 100 ML ASDIR PRN IV Hydralazine HCl 100 MG Q8HR PO Labetalol HCl 400 MG Q8HR PO Magnesium 100 ML ASDIR PRN IV Magnesium Sulfate 50 ML ASDIR PRN IV Magnesium Sulfate 100 ML ASDIR PRN IV Clonidine HCl 0.2 MG Q7D TRANSDERM (CKD) Amlodipine Besylate 5 MG Q12HR PO Aspirin 81 MG DAILY FEED-TUBE Atorvastatin Calcium 40 MG DAILY FEED-TUBE Albuterol/Ipratropium 3 ML RTQ6H INH Dextrose/Water 25 ML ASDIR PRN IV Glucagon 1 MG ASDIR PRN IM Insulin Human Lispro LOW DOSE SCALE ASDIR SUBQ Sterile Water 1 ML ASDIR PRN IM Famotidine 20 MG DAILY PO Heparin Sodium (Porcine) 5,000 UNIT Q12HR SUBQ Physical Exam General appearance: sleeping comfortably Head/Eyes: atraumatic, normocephalic ENT: moist mucosal membranes Neck: non-tender, supple/no meningismus, no brui t / NL carotids, no masses or swelling Cardiovascular: irregular rate and rhythm, murmu r Respiratory: decreased breath sounds, intubated/ mech vent Abdomen: non-tender, normal bowel sounds, soft Neuro/RADIOTELEGRAPHIST: Sedated Diagnosis, Assessment Plan Problem List/A P: 1. Hypertensive urgency 2. Metabolic encephalopathy 3. Critical illness myopathy Free Text A P: Assessment 1. Acute encephalopathy - multifactorial - metab olic/hypertensive emergency/ acute stroke 2. Acute ischemic strokes, suspect embolic sourc e, + PFO, b/l lower extremity dopplers negative 3. s/p PEA arrest 06/11/20 4. hypertensive emergency - still requiring akua rdipine drip and antihypertensives being adjusted 5. acute respiratory failure requiring intubatio n 6. complicated type b aortic dissection, in need of extension TEVAR when stable per vascular surgery Plan Severe critical illness myopathy S/p trach and PEG- has NG tube in as well blood pressure control- on cardene continue medical management asa and statin consider PFO closure in future when medically st abilized no new suggestions for now, will follow Electronically Signed by Mynor Murillo 07/11/20 at 1212 RPT #:[id number] END OF REPORT 2020-07-10 23:40:00-00:[address] [facility] ([facility]) Critical Care Progress Note REPORT#:[id number] REPORT STATUS: Signed DATE:07/10/20 TIME: 2340 PATIENT: JORGE GOINS UNIT #: [id number] ROOM/BED: [address] : [birth year] AGE: 34 SEX: M ATTEND: Luis M Olmedo MD ADM AUTHOR: Edy Olmedo MD * ALL edits or amendments must be made on the el ectronic/computer document * Subjective Chief Complaint: s/p trach febrile mental status unchanged fever Objective Physical Exam Head/Eyes: atraumatic, normocephalic Cardiovascular: normal heart sounds, normal S1 S 2, normal rate and rhythm Respiratory/Chest: aerating well, clear to auscu ltation Abdomen: soft, non-tender, normal bowel sounds, no distention Extremities: no edema Neuro/RADIOTELEGRAPHIST: disoriented Diagnosis, Assessment Plan Free text A P: 34 year old male with history of aortic dissecti on s/p EVAR came in for hypertensive urgency A/P: Neuro -intubated -MRI multiple ischemic cva #AMS -MRI multifocal cva -on versed -neuro following Pulm -s/p trach -wean as tolerated CV #s/p Cardiac Arrest - PEA hypotensive. ROSC achieved after 9 minutes - likely from cardiogenic shock EF 30-34% - Aortic dissection ruled out from CTA chest , a bdomen and pelvis #hx of EVAR for aortic dissection and h/o endole ak in the past - per vascular surgery -uncontrolled hypertension still requiring esmolol and cardene # Fever carvajal culture abx GI vomitted yesterday ileus NGT place to low intermittent suction now abdomen soft and bowel sounds heard will start clamping NGT and trickle feeds and se e how he does Renal stable gi ppx: pepcid dvt ppx: heparin Diet: tube feeds condition critical prognosis guarded CC time more than 45 minutes Reviewed chart/images Excludes all procedure time Electronically Signed by Edy Olmedo MD on at 0908 RPT #:[id number] END OF REPORT 2020-07-10 20:38:00-00:[address] [facility] ([facility]) Cardiology Progress Note REPORT#:[id number] REPORT STATUS: Signed DATE:07/10/20 TIME: 2037 PATIENT: JORGE GOINS UNIT #: [id number] ROOM/BED: [address] : [birth year] AGE: 34 SEX: M ATTEND: Luis M Olmedo MD ADM AUTHOR: Giancarlo Phan MD * ALL edits or amendments must be made on the el ectronic/computer document * Subjective Free Text Subj Notes Free Text Subj Notes: No real change Objective Physical Exam Head/Eyes: atraumatic, normocephalic ENT: moist mucosal membranes, normal nose Neck: non-tender, supple/no meningismus, traches otomy prsent Cardiovascular: CV assessment: regular rate and rhythm, no murm ur Respiratory: no distress, coarse breathsounds, m echanically ventialted Abdomen: soft, non-tender Upper extremity: UE assessment: normal capillary refill, normal temperature Lower extremity: LE assessment: normal capillary refill, normal temperature, no edema Musculoskeletal: normal inspection Neuro/RADIOTELEGRAPHIST: vented via trachesotomy, not followin g commands Diagnosis, Assessment Plan Free Text DxA P Notes Free Text DxA P Notes: 1. Hypertensive urgency/emergency - presented with severely elevated BP requiring 2 IV infusions, subsequently suffered PEA cardiac arrest - BP control improving - cont hydralazine 100mg Q8H, labetalol 400mg Q 8H, clonidine patch - norvasc 5mg PO BID and ISMN 30mg BID - increase losartan to 50mg QD 2. Cardiac arrest - PEA in etiology, pt became hypothermic and sub sequently bradycardic 3. Type B aortic dissection s/p EVAR - has residual descending aortic dissect ion extending into iliacs. No evidence of rupture on CTA. Reviewed by vascular surgery - appreciate assitance - optimal BP Control as above 4. Acute on chronic systolic heart failure - likely hypertensive heart disease due to long standing elevated BP - warm and well perfused on examination - cont lasix gtt 5. Shock - resolved 6. JENNIFER on CKD stage 3 - improved - likely secondary to fluctuation in BP - nephrology following, appreciate recommendatio ns - monitor UOP 7. Acute hypoxic respiratory failure - now has tracheostomy- per ICU team 8. Stroke: - CT head and MRI with evidence of prior CVA - TTE with possible PFO - mo nitor for neurological improvement then will discuss with family potential PFO closure if patient is a cadidate 9. Multiple different species of bacteri a growing: We will defer to infectious disease if the need/require echo otherwise we will continue conservative medical management Will follow. Please call if questions. [facility] Cardiology Electronically Signed by Giancarlo Phan MD on 06/26 11/13 at 2039 RPT #:[id number] END OF REPORT 2020-07-10 18:04:00-00:[address] [facility] ([facility]) Nephrology Progress Note REPORT#:[id number] REPORT STATUS: Signed DATE:07/10/20 TIME: 1803 PATIENT: JORGE GOINS UNIT #: [id number] ROOM/BED: [address] : [birth year] AGE: 34 SEX: M ATTEND: Luis M Olmedo MD ADM AUTHOR: Ceferino De La Garza MD * ALL edits or amendments must be made on the rimidi/computer document * Subjective Comments: seen at bedside worse uop Objective General VS/I O: Vital Signs: Date Time Temp Pulse Resp B/P B/P Pulse O2 O2 F low FiO2 Mean Ox Delivery Rate 07/10 1600 37.3 07/10 1242 92 100 40 07/10 1200 37.2 07/10 0916 100 Ventilator 40 07/10 0916 83 100 40 07/10 0800 37.3 07/10 0800 Ventilator 15 40 07/10 0636 87 16 100 07/10 0630 88 21 113/65 84 100 07/10 0606 87 38 116/63 83 07/10 0556 83 22 100 07/10 0530 84 24 118/60 82 100 07/10 0501 87 24 105/56 71 100 07/10 0500 81 18 100 07/10 0430 86 24 121/59 84 100 07/10 0400 37.7 07/10 0400 85 29 119/63 83 100 07/10 0330 89 31 120/64 84 100 07/10 0300 85 25 120/62 85 100 07/10 0230 86 28 112/62 81 100 07/10 0200 93 37 105/57 75 100 07/10 0130 93 38 95/50 68 100 07/10 0101 96 44 104/55 74 100 07/10 0100 96 39 98 07/10 0053 93 100 40 07/10 0043 89 37 135/74 96 99 07/10 0030 93 27 83/53 63 99 07/10 0000 37.2 07/10 0000 95 32 92/50 66 99 07/09 2330 95 36 93/53 69 99 07/09 2304 97 31 85/53 65 100 07/09 2300 96 35 79/52 61 98 07/09 2232 97 34 100 07/09 2230 97 38 90/55 70 99 07/09 2200 98 47 90/48 62 99 07/09 2150 100 Ventilator 40 07/09 2150 93 100 40 07/09 2130 100 31 103/52 70 99 07/09 2101 95 31 95/55 71 100 07/09 2100 95 34 99 07/09 2034 90 45 122/59 84 100 07/09 1999 37.2 07/09 1999 Ventilator 07/09 1999 89 32 130/60 82 100 07/09 1930 89 36 109/55 74 100 07/09 1921 90 28 100 07/09 1900 96 30 104/53 70 100 07/09 1832 98 51 102/55 73 98 07/09 1830 101 100 40 24 hour I O ending at 0700: 07/10 0700 07/09 1900 Intake Total 1993. Output Total 450 Balance 1544.00 Intake, IV 1993. Output, Urine 450 Medications Active Meds + DC'd Last 24 Hrs Sodium Chloride 500 ML BOLUS ONCE ONE IV (DC) Daptomycin 500 MG Q48H IV IV Miscellaneous Supplies 1 EACH Cefepime HCl 1 GM Q12HR IV Sterile Water 10 ML Ampicillin Sodium/Sulbactam Sodium 3 GM Q6HR IV (DC) Meropenem 500 MG Q12H IV (CAN) Sterile Water 10 ML Ampicillin Sodium/Sulbactam Sodium 3 GM Q6H IV ( DC) Sodium Chloride 100 ML Hydrocodone Bitart/Acetaminophen 1 TAB Q4H PRN P RN FEED-TUBE Miscellaneous Information 1 EACH ASDIR IV (DC) Acetaminophen 650 MG Q4H PRN PRN FEED-TUBE Losartan Potassium 50 MG DAILY PO Isosorbide Mononitrate 30 MG BID FEED-TUBE Potassium Bicarbonate/Citric Acid 20 MEQ DAILY F EED-TUBE Potassium Chloride 100 ML ASDIR PRN IV Propofol 100 ML TITRATE IV (CKD) Potassium Bicarbonate/Citric Acid 20 MEQ ASDIR P O (CKD) Potassium Chloride 100 ML ASDIR PRN IV Hydralazine HCl 100 MG Q8HR PO Labetalol HCl 400 MG Q8HR PO Magnesium 100 ML ASDIR PRN IV Magnesium Sulfate 50 ML ASDIR PRN IV Magnesium Sulfate 100 ML ASDIR PRN IV Clonidine HCl 0.2 MG Q7D TRANSDERM (CKD) Amlodipine Besylate 5 MG Q12HR PO Aspirin 81 MG DAILY FEED-TUBE Atorvastatin Calcium 40 MG DAILY FEED-TUBE Albuterol/Ipratropium 3 ML RTQ6H INH Dextrose/Water 25 ML ASDIR PRN IV Glucagon 1 MG ASDIR PRN IM Insulin Human Lispro LOW DOSE SCALE ASDIR SUBQ Sterile Water 1 ML ASDIR PRN IM Famotidine 20 MG DAILY PO Heparin Sodium (Porcine) 5,000 UNIT Q12HR SUBQ Physical Exam General appearance: awake Head/eyes: normal conjunctiva/sclera Neck: trach in place Respiratory: symmetric expansion Genitourinary: zuñiga, urine (appears pink) Extremities: pedal edema improved Musculoskeletal: normal inspection Neuro/RADIOTELEGRAPHIST: SEDATED Hemodialysis access: Type: vascath Psychiatry: unable to evaluate Results Findings/Data: Laboratory Tests 07/10 415 Blood Gas Puncture Site R Brach ABG pH (7.35 - 7.45 pH units) 7.39 ABG pCO2 (35 - 48 mmHg) 39.0 ABG pO2 (83 - 108 mmHg) 151.8 H ABG PO2/FiO2 Ratio (mm/Hg) 379.50 ABG HCO3 (21 - 28 mmol/L) 23.6 ABG Total CO2 (22 - 29 mmol/L) 23.6 ABG O2 Sat Calc/Denise (94 - 98 %) 99.3 H ABG Base Excess (-2 - 3 mmol/L) -1.2 Emmanuel Test Positive Sodium (138 - 146 mmol/L) 140 Potassium (3.5 - 4.5 mmol/L) 3.5 Ionized Calcium (1.15 - 1.33 MMOL/L) 1.05 L Respiration Rate (12 - 20 /MIN) 14 O2 Delivery Device AeroMask Vent Mode PRVC FiO2 (%) 40 Instrument (Specimen Descript) Arterial Laboratory Tests 07/10 07/10 07/10 07/09 1004 0416 0343 2007 Chemistry Sodium (137 - 145 mmol/L) 144 Potassium (3.4 - 5.0 mmol/L) 3.7 Chloride (98 - 107 mmol/L) 108 H Carbon Dioxide (22 - 30 mmol/L) 23 BUN (9 - 20 mg/dL) 57 H Creatinine (0.7 - 1.3 mg/dL) 3.9 H Glomerular Filtr Rate (>60) 23 L Glucose (74 - 106 mg/dL) 117 H POC Glucose (74 - 106 MG/DL) 77 96 78 Calcium (8.4 - 10.2 mg/dL) 8.9 Laboratory Tests 07/10 0343 Hematology WBC (5.0 - 12.0 x10 3/uL) 11.4 RBC (4.70 - 6.10 x10 6/uL) 3.50 L Hgb (14.0 - 18.0 g/dL) 10.0 L Hct (37.0 - 49.0 %) 32.6 L MCV (80 - 94 fL) 93 MCH (27 - 31 pg) 28.6 MCHC (33 - 37 g/dL) 30.7 L RDW (11.5 - 15.5 %) 15.8 H Plt Count (130 - 400 x10 3/uL) 335 MPV (9.4 - 16.4 fL) 11.1 Neut % (Auto) (43 - 65 %) 80.2 H Lymph % (Auto) (20.5 - 45.5 %) 3.9 L Citrus % (Auto) (5.5 - 11.7 %) 8.8 Eos % (Auto) (0.9 - 2.9 %) 5.7 H Baso % (Auto) (0.2 - 1.0 %) 0.3 Neut # (Auto) (2.2 - 4.8 x10 3/uL) 9.17 H Lymph # (Auto) (1.3 - 2.9 x10 3/uL) 0.45 L Citrus # (Auto) (0.3 - 0.8 x10 3/uL) 1.00 H Eos # (Auto) (0.0 - 0.2 x10 3/uL) 0.65 H Baso # (Auto) (0.0 - 0.1 x10 3/uL) 0.03 Immature Gran % (0.0 - 2.0 %) 1.1 Nucleated RBC % (0 - 1.0 %) 0.0 Radiology data: Recent Impressions: RADIOLOGY - XR CHEST 1 V 07/10 3478 Report Impression - Status: SIGNED Entered: 07/10/2020 0646 IMPRESSION: Mild improvement in the pulmonary opacities marita cially in the right lung base. Probable decrease in the amount of pneumoperiton eum. Impression By: Curt Robins Diagnosis, Assessment Plan Free Text A P: JENNIFER hypotension AAA lactic acidosis severe metabolic acidosis- resolved Metabolic alkalosis - resolved Cr continues to trend up uop worse today lasix stopped yesterday vanc discontinued - daptomycin started will give 500ml bolus and f/u UOP Renal perfusion scan ordered and pending this is likely ATN but will f/u scan in case jeremi erysm is affecting renal arteries potassium replacement discussed with RN will monitor will monitor at 1836 RPT #:[id number] END OF REPORT 2020-07-10 13:33:00-00:00 [facility] Neurology Progress Note REPORT#:[id number] REPORT STATUS: Signed DATE:07/10/20 TIME: 1333 PATIENT: JORGE GOINS UNIT #: [id number] ROOM/BED: [address] : [birth year] AGE: 34 SEX: M ATTEND: Luis M Olmedo MD ADM AUTHOR: Tanya Davila MD * ALL edits or amendments must be made on the el [employer]/computer document * Subjective Chief Complaint: Lethargy and AMS Patient reports: No: complaints. Comments: Awake and tracks me with his eyes. Stick s his tongue out to command but unable to move any extremity Objective General VS: Last Documented: Result Date Time Pulse Ox 100 07/10 1242 FiO2 40 07/10 1242 Pulse 92 07/10 1242 O2 Delivery Ventilator 07/10 0916 Resp 16 07/10 0636 B/P 113/65 07/10 0630 B/P Mean 84 07/10 0630 Temp 99.8 07/10 0400 O2 Flow Rate 0 07/05 0932 PATIENT WEIGHT: Weight (lb): 203 Weight (oz): 0.73 Weight (kg): 92.079 Medications Current Home Medications ALBUTEROL (PROAIR HFA 90 MCG/ACT 8.5 GM) 2 PUFF INH RTQ6H PRN PRN SOB ASPIRIN EC (ECOTRIN) 81 MG PO DAILY CARVEDILOL (COREG) 25 MG PO BID MEALS ACETAMINOPHEN/CODEINE (TYLENOL WITH CODE INE #4 300/60 MG) 1 TAB PO Q6H PRN PRN PAIN ATORVASTATIN (LIPITOR) 20 MG PO BEDTIME LOSARTAN (COZAAR) 100 MG PO DAILY NIFEdipine CC (ADALAT CC) 90 MG PO Q12HR HYDROCHLOROTHIAZIDE (HYDRODIURIL) 25 MG PO DAILY Active Meds + DC'd Last 24 Hrs Sodium Chloride 500 ML BOLUS ONCE ONE IV (DC) Daptomycin 500 MG Q48H IV IV Miscellaneous Supplies 1 EACH Cefepime HCl 1 GM Q12HR IV Sterile Water 10 ML Ampicillin Sodium/Sulbactam Sodium 3 GM Q6HR IV (DC) Meropenem 500 MG Q12H IV (CAN) Sterile Water 10 ML Ampicillin Sodium/Sulbactam Sodium 3 GM Q6H IV ( DC) Sodium Chloride 100 ML Meropenem 500 MG Q8H IV (DC) Sterile Water 10 ML Hydrocodone Bitart/Acetaminophen 1 TAB Q4H PRN P RN FEED-TUBE Miscellaneous Information 1 EACH ASDIR IV (DC) Acetaminophen 650 MG Q4H PRN PRN FEED-TUBE Losartan Potassium 50 MG DAILY PO Isosorbide Mononitrate 30 MG BID FEED-TUBE Potassium Bicarbonate/Citric Acid 20 MEQ DAILY F EED-TUBE Potassium Chloride 100 ML ASDIR PRN IV Propofol 100 ML TITRATE IV (CKD) Potassium Bicarbonate/Citric Acid 20 MEQ ASDIR P O (CKD) Potassium Chloride 100 ML ASDIR PRN IV Hydralazine HCl 100 MG Q8HR PO Labetalol HCl 400 MG Q8HR PO Magnesium 100 ML ASDIR PRN IV Magnesium Sulfate 50 ML ASDIR PRN IV Magnesium Sulfate 100 ML ASDIR PRN IV Clonidine HCl 0.2 MG Q7D TRANSDERM (CKD) Amlodipine Besylate 5 MG Q12HR PO Aspirin 81 MG DAILY FEED-TUBE Atorvastatin Calcium 40 MG DAILY FEED-TUBE Albuterol/Ipratropium 3 ML RTQ6H INH Dextrose/Water 25 ML ASDIR PRN IV Glucagon 1 MG ASDIR PRN IM Insulin Human Lispro LOW DOSE SCALE ASDIR SUBQ Sterile Water 1 ML ASDIR PRN IM Famotidine 20 MG DAILY PO Heparin Sodium (Porcine) 5,000 UNIT Q12HR SUBQ Physical Exam General appearance: respiratory support, awake, no acute distress Diagnosis, Assessment Plan Free Text A P: Assessment 1. Acute encephalopathy - multifactorial - metab olic/hypertensive emergency/ acute stroke 2. Acute ischemic strokes, suspect embolic sourc e, + PFO, b/l lower extremity dopplers negative 3. s/p PEA arrest 06/11/20 4. hypertensive emergency - still requiring akua rdipine drip and antihypertensives being adjusted 5. acute respiratory failure requiring intubatio n 6. complicated type b aortic dissection, in need of extension TEVAR when stable per vascular surgery Plan Follow command only to stick ing his tongue out. Too weak to move any extremity. Severe critical illness myopathy S/p trach and PEG- has NG tube in as well blood pressure control- on cardene continue medical management asa and statin consider PFO closure in future when medically st abilized d/w nurse at 1335 RPT #:[id number] END OF REPORT 2020-07-10 09:41:00-00:00 [facility] Infectious Dis. Progress Note REPORT#:[id number] REPORT STATUS: Signed DATE:07/10/20 TIME: 09 PATIENT: JORGE GOINS UNIT #: [id number] ROOM/BED: [address] : [birth year] AGE: 34 SEX: M ATTEND: Luis M Olmedo MD ADM AUTHOR: Faby Blanchard MD * ALL edits or amendments must be made on the el [employer]/computer document * Subjective Chief Complaint: 07-07-20 INTUBATED UNRESPONSIVE BACTERMIA CVC WAS TAKEN OUT 07-08-2019 BREAHTING FAST UNRESPONSIVE NO FEVER ON THE VENT 07-09-2019 COMFRTABEL TODAY ON THE VENT SEDATED FEVER RENAL FUNCTION NOTED 07-10-2020 MORE AWAKE RESPONDS TO COMMNANDS RENAL FUNCTION NOTED: MAKING 160 M OF URINE SITLL ON THE VENT Nursing reports: Yes: sedated, suctioning. No: complaints, agitat ed, diarrhea, fever. Objective General VS/I O: Laboratory Tests 07/10/20 0343: [Embedded Image Not Available] 07/09/20 1148: [Embedded Image Not Available] 07/09/20 0327: [Embedded Image Not Available] 07/08/20 1152: [Embedded Image Not Available] Microbiology: 07/08 1157 BLOOD: Blood Culture - RES 07/08 115 BLOOD: Blood Culture - RES Current Medications Sig/Ronan Start time Last Medication Dose Route Stop Time Status Admin Cefepime HCl 1 GM Q12HR 07/10 0945 UNVr Sterile Water 10 ML IV 07/24 0946 Daptomycin 552.6 MG Q48H 07/10 0945 UNi IV Miscellaneous 1 EACH IV 07/24 0946 Supplies Ampicillin Sodium/ 3 GM Q6HR 07/10 0000 DC Sulbactam Sodium IV 07/24 0001 Meropenem 500 MG Q12H 07/09 2200 CAN Sterile Water 10 ML IV 07/10 1601 Ampicillin Sodium/ 3 GM Q6H 07/09 2000 DCr 06/26 5 Sulbactam Sodium IV 07/14 1959 0202 Sodium Chloride 100 ML Meropenem 500 MG Q8H 07/08 1600 DC 07/09 Sterile Water 10 ML IV 07/10 1601 0945 Hydrocodone Bitart/ 1 TAB Q4H PRN PRN 07/08 123 0 AC 07/09 Acetaminophen FEED-TUBE 07/13 1231 2019 Miscellaneous 1 EACH ASDIR 07/08 1215 DC Information IV 07/10 1214 Nicardipine HCl 200 ML TITRATE 07/07 1630 DC IV 08/06 1631 Furosemide 40 MG BID@0700,1500 07/07 1500 DC IV 08/06 1501 0952 Acetaminophen 650 MG Q4H PRN PRN 07/06 2100 AC 07/09 FEED-TUBE 08/05 2101 1425 Losartan Potassium 50 MG DAILY 07/04 1415 AC PO 08/03 1416 0921 Isosorbide 30 MG BID 07/04 0900 AC 07/10 Mononitrate FEED-TUBE 08/03 0901 0920 Potassium 20 MEQ DAILY 07/03 1330 AC 07/10 Bicarbonate/Citric FEED-TUBE 08/02 1331 0919 Acid Potassium Chloride 100 ML ASDIR PRN 07/03 0300 AC 07/06 IV 08/02 0301 0606 Propofol 100 ML TITRATE 07/01 2100 CKD 07/10 IV 07/11 210 0553 Potassium 20 MEQ ASDIR 06/28 211 CKD 07/09 Bicarbonate/Citric PO 07/28 2115 0516 Acid Potassium Chloride 100 ML ASDIR PRN 06/28 2115 AC 07/09 IV 07/28 211 0613 Hydralazine HCl 100 MG Q8HR 06/28 1400 AC 07/09 PO 07/28 1401 2019 Labetalol HCl 400 MG Q8HR 06/28 1400 AC 07/09 PO 07/27 1401 2019 Magnesium 100 ML ASDIR PRN 06/28 0600 AC 07/06 IV 07/28 0601 0451 Magnesium Sulfate 50 ML ASDIR PRN 06/28 0600 AC IV 07/28 0601 Magnesium Sulfate 100 ML ASDIR PRN 06/28 0600 A C IV 07/28 0601 Clonidine HCl 0.2 MG Q7D 06/27 1245 CKD 07/04 TRANSDERM 07/27 1246 1243 Amlodipine Besylate 5 MG Q12HR 06/27 1015 AC PO 07/27 210 0920 Aspirin 81 MG DAILY 06/27 09 AC 07/10 FEED-TUBE 07/27 0901 0921 Atorvastatin Calcium 40 MG DAILY 06/27 0900 AC 07/10 FEED-TUBE 07/27 0901 0920 Albuterol/Ipratropium 3 ML RTQ6H 06/25 1400 AC 07/10 INH 07/25 1401 0910 Dextrose/Water 25 ML ASDIR PRN 06/21 2100 AC 0 07/08 IV 07/21 2100 1250 Glucagon 1 MG ASDIR PRN 06/21 2100 AC IM 07/21 2100 Insulin Human Lispro See Dose ASDIR 06/21 2100 AC 06/24 Insts (1) SUBQ 07/21 2100 0357 Sterile Water 1 ML ASDIR PRN 06/21 2100 AC IM 07/21 2100 Famotidine 20 MG DAILY 06/20 0900 AC 07/10 PO 07/20 0901 0921 Heparin Sodium 5,000 UNIT Q12HR 06/19 2100 AC 0 07/10 (Porcine) SUBQ 07/19 2100 0919 Esmolol HCl 250 ML TITRATE 12/25 0900 DC 07/04 IV 07/19 0901 1914 Dose Instructions: (1)Insulin Human Lispro: LOW DOSE SCALE Recent Impressions-Last 72 Hrs RADIOLOGY - XR CHEST 1 V 07/08 0152 Report Impression - Status: SIGNED Entered: 07/08/2020 0404 IMPRESSION: Interval development of right lung base infiltra te/atelectasis. Tracheostomy tube and nasogastric tube are prese nt. Pneumoperitoneum as known before. Impression By: [email or web address] - Carloz Hayden MD RADIOLOGY - XR CHEST 1 V 07/08 0956 Report Impression - Status: SIGNED Entered: 07/08/2020 1025 IMPRESSION: No active disease in the chest. Impression By: [email or web address] Keyon Hollis MD RADIOLOGY - XR CHEST 1 V 07/09 0529 Report Impression - Status: SIGNED Entered: 07/09/2020 0721 IMPRESSION: Worsening right basilar pneumonia. Pneumoperitoneum again seen. Impression By: [email or web address] Keyon Mohamud MD RADIOLOGY - XR CHEST 1 V 07/10 0448 Report Impression - Status: SIGNED Entered: 07/10/2020 0646 IMPRESSION: Mild improvement in the pulmonary opacities marita cially in the right lung base. Probable decrease in the amount of pneumoperiton eum. Impression By: [email or web address] - Shauna Robins Last Documented: Result Date Time Pulse Ox 100 07/10 0916 FiO2 40 07/10 0916 O2 Delivery Ventilator 07/10 0916 Pulse 83 07/10 0916 Resp 16 07/10 0636 B/P 113/65 07/10 0630 B/P Mean 84 07/10 0630 Temp 37.7 07/10 0400 O2 Flow Rate 0 07/05 0932 Vital Signs Date Temp Pulse Resp B/P B/P Mean Pulse Ox FiO2 07/09-07/10 37.2-38.7 81-109 16-53 79-145/48-75 61-102 97-100 40 24 hour I O ending at 0700: 07/10 0700 07/09 1900 Intake Total 1993. Output Total 450 Balance 1544.00 Intake, IV 1993. Output, Urine 450 PATIENT WEIGHT: Weight (lb): 203 Weight (oz): 0.73 Weight (kg): 92.100 Physical Exam General appearance: respiratory support ENT: TRACH WITH A LOT OF MUCOID SECREIONS Cardiovascular: tachycardia Respiratory: ON VENT 50 % Abdomen: non-tender, soft, no distention, no gua rding, no rebound Genitourinary: zuñiga Skin: dry Diagnosis, Assessment Plan Problem List/A P: 1. Multifocal pneumonia 2. Bacteremia due to Enterobacter species 3. Bacteremia due to Enterococcus 4. Pneumonia due to enterobacter aerogenes 5. Renal failure Free Text A P: 07-07-20 CVC WAS D/C SOURCE OF BACTEREMIA !!!!!!!!!!! VANCO + CEFPEIME FOR NOW CHECK SENSITIVITIES. IF REPEAT CX ARE + FOR ENTOEROCOCCCI>>>> HUMPHREY Cortez N ECHO 07-08-2019 CXR STAT PNA MIXED BACTEREMIA UNASYN REPEAT BLOOD CX 07-09-2020 CONTIUED FEVER + ESIONPHYLIA ? DRUNG FEVER PNEUMOPERITONUM >>> EXAME IS VERY BENIGHN MIXED BACTERMIA ACUTE RENAL FAILURE WILL NEEED TO DE ESCALTE HIS ABX TO PROTECT/ RES TONRE HIS RENAL FUCTION,. RE START UNASYN IF OK WITH PRIMAY TEAM 07-10-2019 ACUTE RENAL FAILURE PNA BACTERMIA: REPEAT CX ARE NEGETIVE EOSINOPHYLIA BNNIGHN ABDOMINAL EXAME HASD 2 TYPES OF ENTEROBACTER DAPTO + CEFEPIME Electronically Signed by Faby Blanchard MD on 0 07/10/20 at 0945 RPT #:[id number] END OF REPORT 2020-07-09 23:22:00-00:[address] [facility] ([facility]) Critical Care Progress Note REPORT#:[id number] REPORT STATUS: Signed DATE:07/09/20 TIME: 2321 PATIENT: JORGE GOINS UNIT #: [id number] [address] : [address] AGE: 34 SEX: M ATTEND: Luis M Olmedo MD ADM AUTHOR: Edy Olmedo MD * ALL edits or amendments must be made on the el [employer]ronic/computer document * Subjective Chief Complaint: s/p trach febrile mental status unchanged fever Objective Physical Exam Head/Eyes: atraumatic, normocephalic Cardiovascular: normal heart sounds, normal S1 S 2, normal rate and rhythm Respiratory/Chest: aerating well, clear to auscu ltation Abdomen: soft, non-tender, normal bowel sounds, no distention Extremities: no edema Neuro/RADIOTELEGRAPHIST: disoriented Diagnosis, Assessment Plan Free text A P: 34 year old male with history of aortic dissecti on s/p EVAR came in for hypertensive urgency A/P: Neuro -intubated -MRI multiple ischemic cva #AMS -MRI multifocal cva -on versed -neuro following Pulm -s/p trach -wean as tolerated CV #s/p Cardiac Arrest - PEA hypotensive. ROSC achieved after 9 minutes - likely from cardiogenic shock EF 30-34% - Aortic dissection ruled out from CTA chest , a bdomen and pelvis #hx of EVAR for aortic dissection and h/o endole ak in the past - per vascular surgery -uncontrolled hypertension still requiring esmolol and cardene # Fever carvajal culture abx GI vomitted yesterday ileus NGT place to low intermittent suction now abdomen soft and bowel sounds heard will start clamping NGT and trickle feeds and se e how he does Renal stable gi ppx: pepcid dvt ppx: heparin Diet: tube feeds condition critical prognosis guarded CC time more than 45 minutes Reviewed chart/images Excludes all procedure time Electronically Signed by Edy Olmedo MD on at 0908 RPT #:[id number] END OF REPORT 2020-07-09 21:46:00-00:00 [facility] Cardiology Progress Note REPORT#:[id number] REPORT STATUS: Signed DATE:07/09/20 TIME: 2145 PATIENT: JORGE GOINS UNIT #: [id number] ROOM/BED: [address] : [birth year] AGE: 34 SEX: M ATTEND: Luis M Olmedo MD ADM AUTHOR: Giancarlo hPan MD * ALL edits or amendments must be made on the el ectronic/computer document * Subjective Free Text Subj Notes Free Text Subj Notes: No acute changes Objective General VS/I O: 24 hour I O ending at 0700: 07/09 0700 07/08 1900 Intake Total 1029.45 Output Total 500 400 Balance 529.45 -400 Intake, Free 60 Water Intake, IV 769.45 Intake, Tube 200 Feeding Output, Stool 500 Output, Urine 400 Vital Signs: Date Time Temp Pulse Resp B/P B/P Pulse O2 O2 F low FiO2 Mean Ox Delivery Rate 07/09 1921 90 28 100 07/09 1900 96 30 104/53 70 100 07/09 1832 98 51 102/55 73 98 07/09 1830 101 100 40 07/09 1800 106 42 98/56 74 99 07/09 1730 107 41 88/50 63 99 07/09 1700 109 45 113/56 80 99 07/09 1630 109 47 104/53 76 98 07/09 1600 38.7 07/09 1600 109 53 115/55 77 99 07/09 1530 108 40 113/57 80 100 07/09 1516 104 47 110/53 77 97 07/09 1500 102 51 116/52 75 99 07/09 1430 100 48 110/54 71 100 07/09 1400 95 48 113/56 78 100 07/09 1345 100 100 40 07/09 1331 97 46 111/53 77 100 07/09 1300 96 48 91/53 64 99 07/09 1230 96 45 108/58 69 100 07/09 1200 37.9 07/09 1200 97 47 109/56 73 99 07/09 1130 92 46 113/53 76 100 07/09 1100 83 20 105/53 76 100 07/09 1050 82 20 125/57 82 100 07/09 1030 88 43 145/75 102 100 07/09 1000 87 36 132/64 92 100 07/09 0935 100 Ventilator 40 07/09 0935 81 100 40 07/09 0930 79 18 131/64 90 100 07/09 0900 87 37 109/64 81 100 07/09 0830 85 17 99/50 69 100 07/09 0800 37.9 07/09 0800 Ventilator 40 07/09 0800 84 21 117/56 80 100 07/09 0731 91 22 116/56 76 100 07/09 0700 86 20 119/57 82 100 07/09 0656 86 21 100 07/09 0631 91 21 113/55 79 100 07/09 0601 93 25 100/51 74 100 07/09 0600 91 22 98 07/09 0531 96 39 137/93 110 100 07/09 0528 96 39 100 07/09 0517 93 51 116/57 82 100 07/09 0507 91 100 50 07/09 0503 91 52 121/66 88 07/09 0500 93 26 07/09 0450 92 50 111/56 77 01/ 0415 86 27 119/59 85 100 / 0400 38.1 07/09 0400 84 25 124/56 84 100 07/09 0345 85 17 119/59 84 100 07/09 0330 80 27 120/56 81 100 07/09 0315 83 25 118/57 82 100 / 0300 81 25 116/56 80 100 07/09 0245 82 23 119/57 82 100 07/09 0230 80 18 121/58 84 100 07/09 0215 81 20 118/55 81 100 07/09 0200 81 24 117/59 85 100 07/09 0145 83 28 115/59 84 100 07/09 0130 80 24 118/57 82 100 07/09 0115 82 23 115/58 83 100 07/09 0100 81 16 115/58 83 100 07/09 0046 83 25 100 07/09 0045 83 22 109/55 77 100 07/09 0031 81 24 100 07/09 0030 82 25 123/59 85 100 07/09 0015 78 22 118/55 80 100 07/09 0000 37.2 07/09 0000 74 18 118/58 82 100 07/08 2345 74 24 116/57 81 100 07/08 2330 71 23 113/56 78 100 07/08 2319 71 100 50 07/08 2315 73 20 112/57 80 100 07/08 2300 74 20 99/51 70 100 07/08 2245 73 20 99/54 74 100 07/08 2230 74 21 100/50 72 100 07/08 2215 74 20 108/53 76 100 07/08 2200 73 23 113/56 79 100 PATIENT WEIGHT: Weight (lb): 203 Weight (oz): 0.73 Weight (kg): 92.100 Physical Exam Head/Eyes: atraumatic, normocephalic ENT: moist mucosal membranes, normal nose Neck: non-tender, supple/no meningismus, traches otomy prsent Cardiovascular: CV assessment: regular rate and rhythm, no murm ur Respiratory: no distress, coarse breathsounds, m echanically ventialted Abdomen: soft, non-tender Upper extremity: UE assessment: normal capillary refill, normal temperature Lower extremity: LE assessment: normal capillary refill, normal temperature, no edema Musculoskeletal: normal inspection Neuro/RADIOTELEGRAPHIST: vented via trachesotomy, not followin g commands Diagnosis, Assessment Plan Free Text DxA P Notes Free Text DxA P Notes: 1. Hypertensive urgency/emergency - presented with severely elevated BP requiring 2 IV infusions, subsequently suffered PEA cardiac arrest - BP control improving - cont hydralazine 100mg Q8H, labetalol 400mg Q 8H, clonidine patch - norvasc 5mg PO BID and ISMN 30mg BID - increase losartan to 50mg QD 2. Cardiac arrest - PEA in etiology, pt became hypothermic and sub sequently bradycardic 3. Type B aortic dissection s/p EVAR - has residual descending aortic dissect ion extending into iliacs. No evidence of rupture on CTA. Reviewed by vascular surgery - appreciate assitance - optimal BP Control as above 4. Acute on chronic systolic heart failure - likely hypertensive heart disease due to long standing elevated BP - warm and well perfused on examination - cont lasix gtt 5. Shock - resolved 6. JENNIFER on CKD stage 3 - improved - likely secondary to fluctuation in BP - nephrology following, appreciate recommendatio ns - monitor UOP 7. Acute hypoxic respiratory failure - now has tracheostomy- per ICU team 8. Stroke: - CT head and MRI with evidence of prior CVA - TTE with possible PFO - mo nitor for neurological improvement then will discuss with family potential PFO closure if patient is a cadidate Will follow. Please call if questions. [facility] Cardiology Electronically Signed by Giancarlo Phan MD on 06/26 10/14 at 2151 RPT #:[id number] END OF REPORT 2020-07-09 19:11:00-00:[address] [facility] ([facility]) Nephrology Progress Note REPORT#:[id number] REPORT STATUS: Signed DATE:07/09/20 TIME: 1910 PATIENT: JORGE GOINS UNIT #: [id number] ROOM/BED: [address] : [birth year] AGE: 34 SEX: M ATTEND: Luis M Olmedo MD ADM AUTHOR: Ceferino De La Garza MD * ALL edits or amendments must be made on the [employer] document * Subjective Comments: events noted Objective General VS/I O: Vital Signs: Date Time Temp Pulse Resp B/P B/P Pulse O2 O2 F low FiO2 Mean Ox Delivery Rate 07/09 1830 101 100 40 07/09 1600 38.7 07/09 1345 100 100 40 07/09 1200 37.9 07/09 0935 100 Ventilator 40 07/09 0935 81 100 40 07/09 0800 37.9 07/09 0800 Ventilator 40 07/09 0656 86 21 100 07/09 0631 91 21 113/55 79 100 07/09 0601 93 25 100/51 74 100 07/09 0600 91 22 98 07/09 0531 96 39 137/93 110 100 07/09 0528 96 39 100 07/09 0517 93 51 116/57 82 100 07/09 0507 91 100 50 07/09 0503 91 52 121/66 88 07/09 0500 93 26 07/09 0450 92 50 111/56 77 07/09 0415 86 27 119/59 85 100 07/09 0400 38.1 07/09 0400 84 25 124/56 84 100 07/09 0345 85 17 119/59 84 100 07/09 0330 80 27 120/56 81 100 07/09 0315 83 25 118/57 82 100 / 0300 81 25 116/56 80 100 07/09 0245 82 23 119/57 82 100 / 0230 80 18 121/58 84 100 07/09 0215 81 20 118/55 81 100 07/09 0200 81 24 117/59 85 100 / 0145 83 28 115/59 84 100 / 0130 80 24 118/57 82 100 07/09 0115 82 23 115/58 83 100 / 0100 81 16 115/58 83 100 07/09 0046 83 25 100 07/09 0045 83 22 109/55 77 100 07/09 0031 81 24 100 07/09 0030 82 25 123/59 85 100 07/09 0015 78 22 118/55 80 100 01/14 0000 37.2 07/09 0000 74 18 118/58 82 100 07/08 2345 74 24 116/57 81 100 07/08 2330 71 23 113/56 78 100 07/08 2319 71 100 50 07/08 2315 73 20 112/57 80 100 07/08 2300 74 20 99/51 70 100 07/08 2245 73 20 99/54 74 100 07/08 2230 74 21 100/50 72 100 07/08 2215 74 20 108/53 76 100 07/08 2200 73 23 113/56 79 100 07/086 82 26 110/76 89 100 07/080 76 21 101/55 75 100 07/085 74 23 94/50 68 100 07/08 2100 74 26 93/54 71 100 07/08 2058 74 21 100 07/08 2047 100 Ventilator 50 07/08 2047 76 100 50 07/08 2044 75 26 91/55 71 100 07/08 2030 76 27 107/58 77 88 07/08 2014 76 25 111/55 79 100 07/08 1999 37.2 07/08 1999 Ventilator 07/08 1999 78 24 111/53 76 100 07/08 1946 83 35 132/57 82 99 07/08 1931 82 27 97/54 70 100 07/08 1915 77 22 90/55 71 100 24 hour I O ending at 0700: 07/09 0700 07/08 1900 Intake Total 1029.45 Output Total 500 400 Balance 529.45 -400 Intake, Free 60 Water Intake, IV 769.45 Intake, Tube 200 Feeding Output, Stool 500 Output, Urine 400 Medications Active Meds + DC'd Last 24 Hrs Ampicillin Sodium/Sulbactam Sodium 3 GM Q6HR IV (UNV) Meropenem 500 MG Q12H IV (CANr) Sterile Water 10 ML Meropenem 500 MG Q8H IV (DC) Sterile Water 10 ML Hydrocodone Bitart/Acetaminophen 1 TAB Q4H PRN P RN FEED-TUBE Miscellaneous Information 1 EACH ASDIR IV (DCr) Nicardipine HCl 200 ML TITRATE IV (DC) Furosemide 40 MG BID@0700,1500 IV (DC) Acetaminophen 650 MG Q4H PRN PRN FEED-TUBE Losartan Potassium 50 MG DAILY PO Isosorbide Mononitrate 30 MG BID FEED-TUBE Potassium Bicarbonate/Citric Acid 20 MEQ DAILY F EED-TUBE Potassium Chloride 100 ML ASDIR PRN IV Propofol 100 ML TITRATE IV (CKD) Potassium Bicarbonate/Citric Acid 20 MEQ ASDIR PO (CKD) Potassium Chloride 100 ML ASDIR PRN IV Hydralazine HCl 100 MG Q8HR PO Labetalol HCl 400 MG Q8HR PO Magnesium 100 ML ASDIR PRN IV Magnesium Sulfate 50 ML ASDIR PRN IV Magnesium Sulfate 100 ML ASDIR PRN IV Clonidine HCl 0.2 MG Q7D TRANSDERM (CKD) Amlodipine Besylate 5 MG Q12HR PO Aspirin 81 MG DAILY FEED-TUBE Atorvastatin Calcium 40 MG DAILY FEED-TUBE Albuterol/Ipratropium 3 ML RTQ6H INH Dextrose/Water 25 ML ASDIR PRN IV Glucagon 1 MG ASDIR PRN IM Insulin Human Lispro LOW DOSE SCALE ASDIR SUBQ Sterile Water 1 ML ASDIR PRN IM Famotidine 20 MG DAILY PO Heparin Sodium (Porcine) 5,000 UNIT Q12HR SUBQ Esmolol HCl 250 ML TITRATE IV (DC) Physical Exam Head/eyes: normal conjunctiva/sclera Neck: trach in place Respiratory: symmetric expansion Genitourinary: zuñiga, urine (appears pink) Extremities: pedal edema improved Musculoskeletal: normal inspection Neuro/RADIOTELEGRAPHIST: SEDATED Hemodialysis access: Type: vascath Psychiatry: unable to evaluate Results Findings/Data: Laboratory Tests 07/09 0552 Blood Gas Puncture Site R Radial ABG pH (7.35 - 7.45 pH units) 7.36 ABG pCO2 (35 - 48 mmHg) 42.0 ABG pO2 (83 - 108 mmHg) 113.7 H ABG PO2/FiO2 Ratio (mm/Hg) 227.40 ABG HCO3 (21 - 28 mmol/L) 23.7 ABG Total CO2 (22 - 29 mmol/L) 23.8 ABG O2 Sat Calc/Denise (94 - 98 %) 98.3 H ABG Base Excess (-2 - 3 mmol/L) -1.7 Emmanuel Test Positive Sodium (138 - 146 mmol/L) 142 Potassium (3.5 - 4.5 mmol/L) 2.8 L Ionized Calcium (1.15 - 1.33 MMOL/L) 1.08 L Respiration Rate (12 - 20 /MIN) 14 O2 Delivery Device Adult Vent Vent Mode ASSIST CONTROL FiO2 (%) 50 Instrument (Specimen Descript) Arterial Laboratory Tests 0107/09 1247 1148 0552 0327 1946 Chemistry Sodium (137 - 145 mmol/L) 142 Potassium (3.4 - 5.0 mmol/L) 3.7 2.7 L Chloride (98 - 107 mmol/L) 107 Carbon Dioxide (22 - 30 mmol/L) 22 BUN (9 - 20 mg/dL) 44 H Creatinine (0.7 - 1.3 mg/dL) 2.3 H Glomerular Filtr Rate (>60) 42 L Glucose (74 - 106 mg/dL) 133 H POC Glucose (74 - 106 MG/DL) 74 92 75 Calcium (8.4 - 10.2 mg/dL) 8.3 L Laboratory Tests 07/09 0327 Hematology WBC (5.0 - 12.0 x10 3/uL) 10.6 RBC (4.70 - 6.10 x10 6/uL) 3.27 L Hgb (14.0 - 18.0 g/dL) 9.3 L Hct (37.0 - 49.0 %) 31.4 L MCV (80 - 94 fL) 96 H MCH (27 - 31 pg) 28.4 MCHC (33 - 37 g/dL) 29.6 L RDW (11.5 - 15.5 %) 15.6 H Plt Count (130 - 400 x10 3/uL) 284 MPV (9.4 - 16.4 fL) 10.7 Total Counted (#CELLS) 100 Seg Neutrophils % (43 - 65 %) 91 H Atypical Lymphs % (0 - 1 %) 1 Monocytes % (Manual) (5.5 - 11.7 %) 3 L Eosinophils % (Manual) (0.9 - 2.9 %) 4 H Plasma Cell % (Manual) (<1 %) 1 Platelet Estimate (ADEQUATE) ADEQUATE Plt Morphology Comment (NORMAL) NORMAL Polychromasia (NONE SEEN) 1+ H Anisocytosis (NONE SEEN) 1+ H Microcytosis (NONE SEEN) 1+ H Laboratory Tests 07/09 1146 Toxicology Random Vancomycin (ug/mL) 21.41 Radiology data: Recent Impressions: RADIOLOGY - XR CHEST 1 V 07/09 0529 Report Impression - Status: SIGNED Entered: 07/09/2020 0721 IMPRESSION: Worsening right basilar pneumonia. Pneumoperitoneum again seen. Impression By: [email or web address] - Denny Mohamud MD Diagnosis, Assessment Plan Free Text A P: JENNIFER hypotension AAA lactic acidosis severe metabolic acidosis- resolved Metabolic alkalosis - resolved Cr stable - likely from overdiuresis and diarrhe a monitor uop in zuñiga d/c lasix replace potassium agressively discussed with RN will monitor will monitor at 1944 RPT #:[id number] END OF REPORT 2020-07-09 14:30:00-00:[address] [facility] ([facility]) Pharmacy Prog.Note-Vancomycin REPORT#:[id number] REPORT STATUS: Signed DATE:07/09/20 TIME: 1430 PATIENT: JORGE GOINS UNIT #: [id number] ROOM/BED: [address] : [birth year] AGE: 34 SEX: M ATTEND: Luis M lOmedo MD ADM AUTHOR: Shannan Llamas [facility] * ALL edits or amendments must be made on the rimidi/computer document * Vancomycin Vancomycin Goal trough: 400-600 mcg*hr/ml Indication for treatment: Bacteremia Current therapy: Vanc per pharm to dose Merrem Treatment plan: cont current regimen/dose Follow up: Lab: Vanc random due 07/10 at 1200 Additional Comments: Microbiology: 07/08 1157 BLOOD: Blood Culture - RES 07/08 1151 BLOOD: Blood Culture - RES Hematology: 07/09 07/08 07/07 0327 0413 0349 Hematology WBC (5.0 - 12.0 x10 3/uL) 10.6 9.8 11.1 Chemistry: 07/09 07/08 07/07 0327 0413 0349 Chemistry Creatinine (0.7 - 1.3 mg/dL) 2.3 H 1.7 H 1.6 H Recent Impressions: RADIOLOGY - XR CHEST 1 V 07/08 0152 Report Impression - Status: SIGNED Entered: 07/08/2020 0404 IMPRESSION: Interval development of right lung base infiltra te/atelectasis. Tracheostomy tube and nasogastric tube are prese nt. Pneumoperitoneum as known before. Impression By: [email or web address] - Carloz Hayden MD RADIOLOGY - XR CHEST 1 V 07/08 0956 Report Impression - Status: SIGNED Entered: 07/08/2020 1025 IMPRESSION: No active disease in the chest. Impression By: [email or web address] - Rah Hollis MD RADIOLOGY - XR CHEST 1 V 07/09 0529 Report Impression - Status: SIGNED Entered: 07/09/2020 0721 IMPRESSION: Worsening right basilar pneumonia. Pneumoperitoneum again seen. Impression By: [email or web address] - Denny Mohamud MD Consulting MD: Dr. England Wt: 92 kg (actual BW) A/P: * Pt is a 34 y/o M admitted to [facility] 06/19/20 with uncontrolled HTN and s/p cardiac arrest * Pharmacy re-consulted to dose vancomyc in for empiric txt per Dr. England x 2 days; stop date currently 07/10 * 07/09: Tmax 100.6 , WBC 10.6, SCr increased by 0.1 to 1.7 to 2.3; pt with ok UOP * Micro: bcx + Enterobacter, Enterococcus; sputu m cx +Enterobacter * Last dose of Vanc 1g given on 07/07 pm * Vanc random 07/09 returned elevated at 21.41 @ 1146. * Will draw level tomorrow at 12p on 07/10. Will discuss deescalation with Dr. Cast. Date DoT SCr/CrCl Level AUC Dose 07/06 - 1.0/>100 VT 23.85 @1813 1g q8hr 07/07 1 1.6/76 1g x1 @2118 07/08 2 1.7/72 23.67@1739 hold 07/09 3 2.3 21.41 @ 1146 hold Electronically Signed by Shannan Llamas [facility] on at 1433 RPT #:[id number] END OF REPORT 2020-07-09 10:36:00-00:[address] [facility] ([facility] Neurology Progress Note REPORT#:[id number] REPORT STATUS: Signed DATE:07/09/20 TIME: 1036 PATIENT: JORGE GOINS UNIT #: [id number] ROOM/BED: [address] : [birth year] AGE: 34 SEX: M ATTEND: Luis M Olmedo MD ADM AUTHOR: Tanya Davila MD * ALL edits or amendments must be made on the el [employer]/computer document * Subjective Chief Complaint: Lethargy and AMS Patient reports: No: complaints. Comments: Awakens but does not follow commands. Smiles spo ntaneously Objective General VS: Last Documented: Result Date Time Pulse Ox 100 07/09 0935 FiO2 40 07/09 0935 O2 Delivery Ventilator 07/09 934 Pulse 81 07/09 0935 Temp 100.2 07/09 0800 Resp 21 07/09 0656 B/P 113/55 07/09 0631 B/P Mean 79 07/09 0631 O2 Flow Rate 0 07/05 0932 PATIENT WEIGHT: Weight (lb): 203 Weight (oz): 0.73 Weight (kg): 92.100 Medications Current Home Medications ALBUTEROL (PROAIR HFA 90 MCG/ACT 8.5 GM) 2 PUFF INH RTQ6H PRN PRN SOB ASPIRIN EC (ECOTRIN) 81 MG PO DAILY CARVEDILOL (COREG) 25 MG PO BID MEALS ACETAMINOPHEN/CODEINE (TYLENOL WITH CODE INE #4 300/60 MG) 1 TAB PO Q6H PRN PRN PAIN ATORVASTATIN (LIPITOR) 20 MG PO BEDTIME LOSARTAN (COZAAR) 100 MG PO DAILY NIFEdipine CC (ADALAT CC) 90 MG PO Q12HR HYDROCHLOROTHIAZIDE (HYDRODIURIL) 25 MG PO DAILY Active Meds + DC'd Last 24 Hrs Meropenem 500 MG Q8H IV Sterile Water 10 ML Hydrocodone Bitart/Acetaminophen 1 TAB Q4H PRN P RN FEED-TUBE Miscellaneous Information 1 EACH ASDIR IV (CKD) Ampicillin Sodium/Sulbactam Sodium 3 GM Q6HR IV (DC) Sodium Chloride 100 ML Nicardipine HCl 200 ML TITRATE IV Furosemide 40 MG BID@0700,1500 IV (DC) Acetaminophen 650 MG Q4H PRN PRN FEED-TUBE Losartan Potassium 50 MG DAILY PO Isosorbide Mononitrate 30 MG BID FEED-TUBE Potassium Bicarbonate/Citric Acid 20 MEQ DAILY F EED-TUBE Potassium Chloride 100 ML ASDIR PRN IV Propofol 100 ML TITRATE IV (CKD) Potassium Bicarbonate/Citric Acid 20 MEQ ASDIR P O (CKD) Potassium Chloride 100 ML ASDIR PRN IV Hydralazine HCl 100 MG Q8HR PO Labetalol HCl 400 MG Q8HR PO Magnesium 100 ML ASDIR PRN IV Magnesium Sulfate 50 ML ASDIR PRN IV Magnesium Sulfate 100 ML ASDIR PRN IV Clonidine HCl 0.2 MG Q7D TRANSDERM (CKD) Amlodipine Besylate 5 MG Q12HR PO Aspirin 81 MG DAILY FEED-TUBE Atorvastatin Calcium 40 MG DAILY FEED-TUBE Albuterol/Ipratropium 3 ML RTQ6H INH Dextrose/Water 25 ML ASDIR PRN IV Glucagon 1 MG ASDIR PRN IM Insulin Human Lispro LOW DOSE SCALE ASDIR SUBQ Sterile Water 1 ML ASDIR PRN IM Famotidine 20 MG DAILY PO Heparin Sodium (Porcine) 5,000 UNIT Q12HR SUBQ Esmolol HCl 250 ML TITRATE IV (CKD) Physical Exam General appearance: altered mental status, jovanny rgic, respiratory support, responsiveness Diagnosis, Assessment Plan Free Text A P: Assessment 1. Acute encephalopathy - multifactorial - metab olic/hypertensive emergency/ acute stroke 2. Acute ischemic strokes, suspect embolic sourc e, + PFO, b/l lower extremity dopplers negative 3. s/p PEA arrest 06/11/20 4. hypertensive emergency - still requiring akua rdipine drip and antihypertensives being adjusted 5. acute respiratory failure requiring intubatio n 6. complicated type b aortic dissection, in need of extension TEVAR when stable per vascular surgery Plan Does not follow commands even off sedation S/p trach and PEG- has NG tube in as well blood pressure control- on cardene continue medical management asa and statin consider PFO closure in future when medically st abilized d/w nurse at 1037 RPT #:[id number] END OF REPORT 2020-07-09 08:09:00-00:[address] [facility] ([facility]) Infectious Dis. Progress Note REPORT#:[id number] REPORT STATUS: Signed DATE:07/09/20 TIME: 808 PATIENT: JORGE GOINS UNIT #: [id number] ROOM/BED: [address] : [birth year] AGE: 34 SEX: M ATTEND: Luis M Olmedo MD ADM AUTHOR: Faby Blanchard MD * ALL edits or amendments must be made on the el [employer]/computer document * Subjective Chief Complaint: 07-07-20 INTUBATED UNRESPONSIVE BACTERMIA CVC WAS TAKEN OUT 07-08-2019 BREAHTING FAST UNRESPONSIVE NO FEVER ON THE VENT 07-09-2019 COMFRTABEL TODAY ON THE VENT SEDATED FEVER RENAL FUNCTION NOTED Objective General VS/I O: Laboratory Tests 07/09/20 0327: [Embedded Image Not Available] 07/08/20 1152: [Embedded Image Not Available] 07/08/20 0413: [Embedded Image Not Available] 07/07/20 2230: [Embedded Image Not Available] Microbiology: 07/08 1157 BLOOD: Blood Culture - RES 07/08 1151 BLOOD: Blood Culture - RES 07/06 1149 STOOL: Clostridioides difficile Toxin Assay - COMP Current Medications Sig/Ronan Start time Last Medication Dose Route Stop Time Status Admin Meropenem 500 MG Q8H 07/08 1600 AC 07/09 Sterile Water 10 ML IV 07/10 1601 0021 Hydrocodone Bitart/ 1 TAB Q4H PRN PRN 07/08 123 0 AC 07/09 Acetaminophen FEED-TUBE 07/13 1231 0512 Miscellaneous 1 EACH ASDIR 07/08 1215 CKD Information IV 07/10 1214 Ampicillin Sodium/ 3 GM Q6HR 07/08 0930 DC Sulbactam Sodium IV 07/22 0929 0943 Sodium Chloride 100 ML Miscellaneous 1 EACH ASDIR 07/07 1930 DC Information IV 07/21 1929 Nicardipine HCl 200 ML TITRATE 07/07 1630 AC IV 08/06 1631 Furosemide 40 MG BID@0700,1500 07/07 1500 AC IV 08/06 1501 0952 Acetaminophen 650 MG Q4H PRN PRN 07/06 2100 AC 07/09 FEED-TUBE 08/05 2101 0511 Potassium 40 MEQ DAILY 07/05 0900 DC 07/05 Bicarbonate/Citric PO 07/08 0901 0828 Acid Cefepime HCl 1 GM Q12HR 07/04 1445 DC 07/07 Sterile Water 10 ML IV 07/11 1444 2111 Losartan Potassium 50 MG DAILY 07/04 1415 AC PO 08/03 1416 0949 Isosorbide 30 MG BID 07/04 0900 AC 07/08 Mononitrate FEED-TUBE 08/03 0901 0949 Potassium 20 MEQ DAILY 07/03 1330 AC 07/08 Bicarbonate/Citric FEED-TUBE 08/02 1331 0948 Acid Potassium Chloride 100 ML ASDIR PRN 07/03 0300 AC 07/06 IV 08/02 0301 0606 Propofol 100 ML TITRATE 07/01 2100 CKD 07/09 IV 07/11 210 0642 Potassium 20 MEQ ASDIR 06/28 211 CKD 07/09 Bicarbonate/Citric PO 07/28 211 0516 Acid Potassium Chloride 100 ML ASDIR PRN 06/28 2115 AC 07/09 IV 07/28 211 0613 Hydralazine HCl 100 MG Q8HR 06/28 1400 AC 07/09 PO 07/28 1401 0511 Labetalol HCl 400 MG Q8HR 06/28 1400 AC 07/09 PO 07/27 1401 0511 Magnesium 100 ML ASDIR PRN 06/28 0600 AC 07/06 IV 07/28 0601 0451 Magnesium Sulfate 50 ML ASDIR PRN 06/28 0600 AC IV 07/28 0601 Magnesium Sulfate 100 ML ASDIR PRN 06/28 0600 A C IV 07/28 0601 Clonidine HCl 0.2 MG Q7D 06/27 1245 CKD 07/04 TRANSDERM 07/27 1246 1243 Amlodipine Besylate 5 MG Q12HR 06/27 1015 AC 0 07/08 PO 07/27 210 0949 Aspirin 81 MG DAILY 06/27 09 AC 07/08 FEED-TUBE 07/27 0901 0949 Atorvastatin Calcium 40 MG DAILY 06/27 0900 AC 07/08 FEED-TUBE 07/27 0901 0949 Albuterol/Ipratropium 3 ML RTQ6H 06/25 1400 AC 07/09 INH 07/25 1401 0126 Dextrose/Water 25 ML ASDIR PRN 06/21 2100 AC IV 07/21 2100 1250 Glucagon 1 MG ASDIR PRN 06/21 2100 AC IM 07/21 2100 Insulin Human Lispro See Dose ASDIR 06/21 2100 AC 06/24 Insts (1) SUBQ 07/21 2100 0357 Sterile Water 1 ML ASDIR PRN 06/21 2100 AC IM 07/21 2100 Famotidine 20 MG DAILY 06/20 0900 AC 07/08 PO 07/20 0901 0948 Heparin Sodium 5,000 UNIT Q12HR 06/19 2100 AC 0 07/08 (Porcine) SUBQ 07/19 Esmolol HCl 250 ML TITRATE 06/19 09 CKD 07/04 IV 07/19 0901 1914 Dose Instructions: (1)Insulin Human Lispro: LOW DOSE SCALE Recent Impressions-Last 72 Hrs RADIOLOGY - XR CHEST 1 V 07/07 0516 Report Impression - Status: SIGNED Entered: 07/07/2020 0632 IMPRESSION: Improving pulmonary edema. Free air the upper abdomen may have slightly wor sened. Impression By: [email or web address] - Shauna Robins RADIOLOGY - XR CHEST 1 V 07/08 0152 Report Impression - Status: SIGNED Entered: 07/08/2020 0404 IMPRESSION: Interval development of right lung base infiltra te/atelectasis. Tracheostomy tube and nasogastric tube are prese nt. Pneumoperitoneum as known before. Impression By: [email or web address] Keyon Hayden MD RADIOLOGY - XR CHEST 1 V 07/08 0956 Report Impression - Status: SIGNED Entered: 07/08/2020 1025 IMPRESSION: No active disease in the chest. Impression By: [email or web address] - Rah Hollis MD RADIOLOGY - XR CHEST 1 V 07/09 0529 Report Impression - Status: SIGNED Entered: 07/09/2020 0721 IMPRESSION: Worsening right basilar pneumonia. Pneumoperitoneum again seen. Impression By: [email or web address] - Denny Mohamud MD Last Documented: Result Date Time Pulse Ox 100 07/09 0656 Pulse 86 07/09 0656 Resp 21 07/09 0656 B/P 113/55 07/09 0631 B/P Mean 79 07/09 0631 FiO2 50 07/09 0507 Temp 38.1 07/09 0400 O2 Delivery Ventilator 07/08 204 O2 Flow Rate 0 07/05 0932 Vital Signs Date Temp Pulse Resp B/P B/P Mean Pulse Ox FiO2 07/08-07/09 37.2-38.1 71-109 16-53 85-142/50-10 4 63-119 84-100 50 24 hour I O ending at 0700: 07/09 0700 07/08 1900 Intake Total 1029.45 Output Total 500 400 Balance 529.45 -400 Intake, Free 60 Water Intake, IV 769.45 Intake, Tube 200 Feeding Output, Stool 500 Output, Urine 400 PATIENT WEIGHT: Weight (lb): 203 Weight (oz): 0.73 Weight (kg): 92.100 Physical Exam General appearance: respiratory support, sedated ENT: TRACH WITH A LOT OF MUCOID SECREIONS Cardiovascular: tachycardia Respiratory: ON VENT 50 % Abdomen: non-tender, soft, no distention, no gua rding, no rebound Genitourinary: zuñiga Skin: dry Treatment Prophylaxis Treatment Prophylaxis CVC/PICC documentation: The data below has been imported from nursing do cumentation. Any exceptions have been noted below under Provider comments. CVC/PICC insertion date/time: No CVC/PICC Provider comments on imported nursing data: [] Diagnosis, Assessment Plan Problem List/A P: 1. Multifocal pneumonia 2. Bacteremia due to Enterobacter species 3. Bacteremia due to Enterococcus 4. Pneumonia due to enterobacter aerogenes Free Text A P: 07-07-20 CVC WAS D/C SOURCE OF BACTEREMIA !!!!!!!!!!! VANCO + CEFPEIME FOR NOW CHECK SENSITIVITIES. IF REPEAT CX ARE + FOR ENTOEROCOCCCI>>>> HUMPHREY Cortez N ECHO 07-08-2019 CXR STAT PNA MIXED BACTEREMIA UNASYN REPEAT BLOOD CX 07-09-2020 CONTIUED FEVER + ESIONPHYLIA ? DRUNG FEVER PNEUMOPERITONUM >>> EXAME IS VERY BENIGHN MIXED BACTERMIA ACUTE RENAL FAILURE WILL NEEED TO DE ESCALTE HIS ABX TO PROTECT/ RES TONRE HIS RENAL FUCTION,. RE START UNASYN IF OK WITH PRIMAY TEAM Electronically Signed by Faby Blanchard MD on 0 07/09/20 at 0817 RPT #:[id number] END OF REPORT 2020-07-08 23:15:00-00:[address] [facility] ([facility]) Critical Care Progress Note REPORT#:[id number] REPORT STATUS: Signed DATE:07/08/20 TIME: 2314 PATIENT: JORGE GOINS UNIT #: [id number] [address] AGE: 34 SEX: M ATTEND: Luis M Olmedo MD ADM AUTHOR: Papi England MD * ALL edits or amendments must be made on the rimidi/computer document * Subjective Chief Complaint: s/p trach febrile mental status unchanged fever Objective General VS/I O Last Documented: Result Date Time Pulse Ox 100 07/08 2058 Pulse 74 07/08 2058 Resp 21 07/08 2058 FiO2 50 07/08 2047 O2 Delivery Ventilator 07/08 2047 B/P 91/55 07/08 2044 B/P Mean 71 07/08 2044 Temp 37.2 07/08 1999 O2 Flow Rate 0 07/05 0932 24 hour I O ending at 0700: 07/08 0700 07/07 1900 Intake Total 972.00 Output Total 1000 1825 Balance -1000 -853.00 Intake, IV 642.00 Intake, Tube 330 Feeding Output, Stool 550 Output, Urine 1000 1275 PATIENT WEIGHT: Weight (lb): 203 Weight (oz): 0.73 Weight (kg): 92.100 Medications: Active Meds + DC'd Last 24 Hrs Meropenem 500 MG Q8H IV Sterile Water 10 ML Hydrocodone Bitart/Acetaminophen 1 TAB Q4H PRN P RN FEED-TUBE Miscellaneous Information 1 EACH ASDIR IV (CKD) Ampicillin Sodium/Sulbactam Sodium 3 GM Q6HR IV (DC) Sodium Chloride 100 ML Miscellaneous Information 1 EACH ASDIR IV (DC) Nicardipine HCl 200 ML TITRATE IV Furosemide 40 MG BID@0700,1500 IV Acetaminophen 650 MG Q4H PRN PRN FEED-TUBE Potassium Bicarbonate/Citric Acid 40 MEQ DAILY P O (DC) Cefepime HCl 1 GM Q12HR IV (DC) Sterile Water 10 ML Losartan Potassium 50 MG DAILY PO Isosorbide Mononitrate 30 MG BID FEED-TUBE Potassium Bicarbonate/Citric Acid 20 MEQ DAILY F EED-TUBE Potassium Chloride 100 ML ASDIR PRN IV Propofol 100 ML TITRATE IV (CKD) Potassium Bicarbonate/Citric Acid 20 MEQ ASDIR P O (CKD) Potassium Chloride 100 ML ASDIR PRN IV Hydralazine HCl 100 MG Q8HR PO Labetalol HCl 400 MG Q8HR PO Magnesium 100 ML ASDIR PRN IV Magnesium Sulfate 50 ML ASDIR PRN IV Magnesium Sulfate 100 ML ASDIR PRN IV Clonidine HCl 0.2 MG Q7D TRANSDERM (CKD) Amlodipine Besylate 5 MG Q12HR PO Aspirin 81 MG DAILY FEED-TUBE Atorvastatin Calcium 40 MG DAILY FEED-TUBE Albuterol/Ipratropium 3 ML RTQ6H INH Dextrose/Water 25 ML ASDIR PRN IV Glucagon 1 MG ASDIR PRN IM Insulin Human Lispro LOW DOSE SCALE ASDIR SUBQ Sterile Water 1 ML ASDIR PRN IM Famotidine 20 MG DAILY PO Heparin Sodium (Porcine) 5,000 UNIT Q12HR SUBQ Esmolol HCl 250 ML TITRATE IV (CKD) Physical Exam General appearance: alert Head/Eyes: atraumatic, normocephalic Cardiovascular: normal heart sounds, normal S1 S 2, normal rate and rhythm Respiratory/Chest: aerating well, clear to auscu ltation Abdomen: soft, non-tender, normal bowel sounds, no distention Extremities: no edema Neuro/RADIOTELEGRAPHIST: disoriented Diagnosis, Assessment Plan Free text A P: 34 year old male with history of aortic dissecti on s/p EVAR came in for hypertensive urgency A/P: Neuro -intubated -MRI multiple ischemic cva #AMS -MRI multifocal cva -on versed -neuro following Pulm -s/p trach -wean as tolerated CV #s/p Cardiac Arrest - PEA hypotensive. ROSC achieved after 9 minutes - likely from cardiogenic shock EF 30-34% - Aortic dissection ruled out from CTA chest , a bdomen and pelvis #hx of EVAR for aortic dissection and h/o endole ak in the past - per vascular surgery -uncontrolled hypertension still requiring esmolol and cardene # Fever carvajal culture abx GI vomitted yesterday ileus NGT place to low intermittent suction now abdomen soft and bowel sounds heard will start clamping NGT and trickle feeds and se e how he does Renal stable gi ppx: pepcid dvt ppx: heparin Diet: tube feeds condition critical prognosis guarded CC time more than 45 minutes Reviewed chart/images Excludes all procedure time at [address] [facility] #:[id number] END OF REPORT 2020-07-08 22:10:00-00:[address] [facility] ([facility]) Cardiology Progress Note REPORT#:[id number] REPORT STATUS: Signed DATE:07/08/20 TIME: 2209 PATIENT: JORGE GOINS UNIT #: [id number] ROOM[address]BED: [address] : [birth year] AGE: 34 SEX: M ATTEND: Yoseph Olmedo MD ADM AUTHOR: Giancarlo Phan MD * ALL edits or amendments must be made on the rimidi/computer document * Subjective Free Text Subj Notes Free Text Subj Notes: Patient currently afebrile. He also has positive blood cultures Objective General VS/I O: 24 hour I O ending at 0700: 07/08 0700 07/07 1900 Intake Total 972.00 Output Total 1000 1825 Balance -1000 -853.00 Intake, IV 642.00 Intake, Tube 330 Feeding Output, Stool 550 Output, Urine 1000 1275 Vital Signs: Date Time Temp Pulse Resp B/P B/P Pulse O2 O2 F low FiO2 Mean Ox Delivery Rate 07/08 2058 74 21 100 07/08 2047 100 Ventilator 50 07/08 2047 76 100 50 07/08 2044 75 26 91/55 71 100 07/08 2029 76 27 107/58 77 88 07/08 2014 76 25 111/55 79 100 07/08 1999 37.2 07/08 1999 Ventilator 07/08 1999 78 24 111/53 76 100 07/08 1946 83 35 132/57 82 99 07/08 1931 82 27 97/54 70 100 07/08 1915 77 22 90/55 71 100 07/08 1900 76 19 100/52 73 100 07/08 1845 79 23 99/52 73 100 07/08 1831 84 29 109/50 72 84 07/08 1816 83 30 85/51 63 98 07/08 1746 85 29 129/52 75 100 07/08 1742 84 34 100 07/08 1741 81 30 100 07/08 1730 85 32 130/65 91 99 07/08 1715 82 47 131/63 91 100 07/08 1713 83 46 100 07/08 1700 80 31 131/63 90 100 07/08 1645 84 38 117/69 86 100 07/08 1630 37.3 Ventilator 50 07/08 1630 83 30 115/60 82 100 01 1615 81 24 116/60 82 100 07/08 1600 85 31 141/104 119 100 07/08 1558 83 100 50 07/08 1545 87 38 134/66 93 100 07/08 1530 87 53 133/68 93 100 07/08 1515 87 45 142/72 99 100 07/08 1500 88 45 134/71 96 100 07/08 1445 91 32 121/66 87 100 07/08 1430 93 32 124/67 89 100 07/08 1415 94 33 118/67 88 100 07/08 1400 94 40 127/64 87 100 07/08 1345 96 36 129/59 86 100 07/08 1331 96 38 124/67 86 100 07/08 1315 99 36 127/61 87 100 07/08 1300 97 33 120/62 80 100 07/08 1256 99 34 100 07/08 1245 97 34 111/55 77 100 07/08 1230 100 35 130/62 89 100 07/08 1215 99 39 128/64 83 100 07/08 1206 100 41 126/58 84 100 07/08 1200 37.8 Ventilator 50 07/08 1200 100 38 96/61 72 100 07/08 1157 101 41 87/61 70 100 07/08 1145 101 34 97/59 72 100 07/08 1130 101 42 112/59 78 100 07/08 1115 102 39 114/56 79 100 07/08 1100 104 38 110/58 81 100 07/08 1045 105 39 111/54 77 100 01 1030 106 38 112/56 80 100 07/08 1015 109 38 123/58 84 100 07/08 1000 107 37 137/68 94 100 07/08 0945 106 39 126/61 88 100 07/08 0938 100 Ventilator 50 07/08 0938 106 100 50 07/08 0930 107 38 127/61 84 100 07/08 0915 105 40 128/61 88 100 07/08 0900 101 41 128/60 87 100 07/08 0845 101 42 125/60 87 100 / 0830 101 40 126/57 82 100 01/ 0815 101 43 122/55 81 100 / 0800 39.0 Ventilator 35 / 0800 Ventilator 35 / 0800 101 42 126/60 86 100 / 0745 101 48 129/60 87 100 / 0730 100 44 123/59 85 100 / 0727 100 46 100 / 0715 100 49 122/56 80 100 07/08 0700 99 51 122/59 85 100 / 0650 100 54 100 07/08 0645 99 51 120/58 84 100 / 0639 100 51 120/56 81 100 07/08 0617 105 100 40 / 0600 108 66 154/67 96 100 07/08 0545 110 51 145/59 93 100 07/08 0530 116 49 162/73 108 100 07/08 0515 117 181/86 123 100 07/08 0502 113 170/85 120 100 07/08 0500 111 100 07/08 0430 110 150/72 103 100 07/08 0415 104 147/70 100 100 07/08 0400 38.3 / 0400 99 41 153/73 105 100 / 0345 97 36 141/67 97 100 / 0330 97 38 139/65 93 100 / 0315 97 37 141/66 95 100 01/ 0300 97 37 142/66 95 100 01/ 0245 96 38 140/66 94 100 / 0230 96 34 137/64 92 100 01/ 0215 96 34 137/64 92 100 01/ 0200 96 36 137/64 92 100 / 0145 96 35 135/64 92 100 / 0130 97 35 141/66 95 100 / 0120 97 100 35 01/13 0115 96 33 137/64 92 100 01/ 0100 95 34 142/66 95 100 07/08 0045 98 34 142/67 95 100 01/ 0030 97 33 140/65 94 100 07/08 0015 97 33 143/67 97 100 07/08 0000 39.4 01 0000 97 33 150/70 101 100 PATIENT WEIGHT: Weight (lb): 203 Weight (oz): 0.73 Weight (kg): 92.100 Physical Exam Head/Eyes: atraumatic, normocephalic ENT: moist mucosal membranes, normal nose Neck: non-tender, supple/no meningismus, traches otomy prsent Cardiovascular: CV assessment: regular rate and rhythm, no murm ur Respiratory: no distress, coarse breathsounds, m echanically ventialted Abdomen: soft, non-tender Upper extremity: UE assessment: normal capillary refill, normal temperature Lower extremity: LE assessment: normal capillary refill, normal temperature, no edema Musculoskeletal: normal inspection Neuro/RADIOTELEGRAPHIST: vented via trachesotomy, not followin g commands Diagnosis, Assessment Plan Free Text DxA P Notes Free Text DxA P Notes: 1. Hypertensive urgency/emergency - presented with severely elevated BP requiring 2 IV infusions, subsequently suffered PEA cardiac arrest - BP control improving - cont hydralazine 100mg Q8H, labetalol 400mg Q 8H, clonidine patch - norvasc 5mg PO BID and ISMN 30mg BID - increase losartan to 50mg QD 2. Cardiac arrest - PEA in etiology, pt became hypothermic and sub sequently bradycardic 3. Type B aortic dissection s/p EVAR - has residual descending aortic dissect ion extending into iliacs. No evidence of rupture on CTA. Reviewed by vascular surgery - appreciate assitance - optimal BP Control as above 4. Acute on chronic systolic heart failure - likely hypertensive heart disease due to long standing elevated BP - warm and well perfused on examination - cont lasix gtt 5. Shock - resolved 6. JENNIFER on CKD stage 3 - improved - likely secondary to fluctuation in BP - nephrology following, appreciate recommendatio ns - monitor UOP 7. Acute hypoxic respiratory failure - now has tracheostomy- per ICU team 8. Stroke: - CT head and MRI with evidence of prior CVA - TTE with possible PFO - mo nitor for neurological improvement then will discuss with family potential PFO closure if patient is a cadidate Given patient's positive blo od cultures we will continue to monitor may consider transthoracic given positive blood cultures. How ever will defer to infectious disease further recommendations. Will follow. Please call if questions. [facility] Cardiology Electronically Signed by Giancarlo Phan MD on 06/26 09/13 at 2230 RPT #:[id number] END OF REPORT 2020-07-08 21:44:00-00:[address] [facility] ([facility]) Vascular Surgery Progress Note REPORT#:[id number] REPORT STATUS: Signed DATE:07/08/20 TIME: 2143 PATIENT: JORGE GOINS UNIT #: [id number] ROOM/BED: [place] [id number] : 86 AGE: 34 SEX: M ATTEND: Luis M Olmedo MD ADM AUTHOR: Kleber Newby MD * ALL edits or amendments must be made on the rimidi/computer document * Subjective Chief Complaint: Intubated and sedated at time of examination HPI Creatinine continues to trend upwards currently 1.7 up from 1.6. Patient remains critically ill and ventilator de pendent. Patient is sedated at time of examination and thus unable to perform review of systems. Patient's blood cultures remain positive wit h an infectious disease consulted and the patient on broad-spectrum antibiotics. Central line has bee n removed. Objective General VS/I O Last Documented: Result Date Time Pulse Ox 100 07/08 2058 Pulse 74 07/08 2058 Resp 21 07/08 2058 FiO2 50 07/08 2047 O2 Delivery Ventilator 07/08 2047 B/P 91/55 07/08 2044 B/P Mean 71 07/08 2044 Temp 98.9 07/08 1999 O2 Flow Rate 0 07/05 0932 24 hour I O ending at 0700: 07/08 0700 07/07 1900 Intake Total 972.00 Output Total 1000 1825 Balance -1000 -853.00 Intake, IV 642.00 Intake, Tube 330 Feeding Output, Stool 550 Output, Urine 1000 1275 PATIENT WEIGHT: Weight (lb): 203 Weight (oz): 0.73 Weight (kg): 92.100 General appearance: alert, awake HEENT: anicteric Neck: trach Cardiovascular: regular rate Respiratory: symmetric expansion, mechanically v entilated Abdomen: distended Genitourinary: zuñiga Extremities: palpable radial and dorsalis pedis pulses bilaterally Neuro/RADIOTELEGRAPHIST: intubated and sedated Skin: no flank or back ecchymosis Psychiatry: unable to evaluate Diagnosis, Assessment Plan Free Text A P: 34 year old male with complicated type B dissection in need of extension TEVAR when stable Keep BP less than 120mmhg with heart rate goal o f 60 bpm Extubate when feasible: Patient has now been tra ched, wean from vent as tolerated Will need further TEVAR when stable Vascular surgery will continue to follow closely . Patient now with positive blood cultures . Recommend broad-spectrum antibiotics and ID consultation for further recommendations. Patient is high risk for aortic stent-graft infection with extremely grim outcome if the stent grafts are to become infected. Agree with removal of central line Appreciate infectious disease recommendations fo r broad-spectrum antibiotics. Electronically Signed by Kleber Newby MD on 06/26 09/13 at 2146 RPT #:[id number] END OF REPORT 2020-07-08 19:15:00-00:[address] [facility] ([facility]) Pharmacy Prog.Note-Vancomycin REPORT#:[id number] REPORT STATUS: Signed DATE:07/08/20 TIME: 1914 PATIENT: JORGE GOINS UNIT #: [id number] ROOM[address]BED: [address] : [birth year] AGE: 34 SEX: M ATTEND: Yoseph Olmedo MD ADM AUTHOR: Rufina Mock [facility] * ALL edits or amendments must be made on the rimidi/computer document * Vancomycin Vancomycin Indication for treatment: Bacteremia Current therapy: Medication(s) Ordered: Anti-Infective Agents Sig/Ronan Start time Last Medication Dose Route Stop Time Status Admin Meropenem 500 MG Q8H 07/08 1600 AC 07/08 Sterile Water 10 ML IV 07/10 1601 1701 Miscellaneous 1 EACH ASDIR 07/08 1215 CKD Information IV 07/10 1214 Ampicillin Sodium/ 3 GM Q6HR 07/08 0930 DC 06/26 3 Sulbactam Sodium IV 07/22 0929 0943 Sodium Chloride 100 ML Vancomycin HCl 1,000 MG ONCE ONE 07/07 2100 DC 07/07 Sodium Chloride 250 ML IV 07/07 2158 2118 Miscellaneous 1 EACH ASDIR 07/07 1930 DC Information IV 07/21 1929 Cefepime HCl 1 GM Q12HR 07/04 1445 DC 07/07 Sterile Water 10 ML IV 07/11 1444 2111 Weight: Actual weight (kg): 92 VS and I/O: Vital Signs Date Temp Pulse Resp B/P B/P Mean Pulse Ox FiO2 07/05-07/08 36.6-39.4 77-118 4-66 87-181/52-104 70-123 86-100 35-50 72 hours ending at 0700 07/08 0700 07/07 1900 07/07 0700 07/06 1900 07/05 0700 1900 Intake 972.00 6722.00 1555.00 2508.00 746.54 Total Output 1000 1825 1500 5200 2600 Total Balance -1000 -853.00 5222.00 1555.00 -2692.00 - 1853.46 Intake, IV 642.00 6722.00 1041.00 1808.00 746.5 4 Intake, 0 Oral Intake, 330 394 300 Tube Feeding Intake, 120 400 Tube Irrigant Output, 550 850 800 Stool Output, 1000 1275 1500 4350 1800 Urine Patient 92.1 kg Weight Weight Bed scale Measuremen t Method 72 Hour I O Total 07/08 0700 07/07 0700 07/06 0700 Intake Total 972.00 8277.00 3254.54 Output Total 2825 1500 7800 Balance -1853.00 6777.00 -4545.46 Labs: Laboratory Tests: 07/08 1739 Toxicology Random Vancomycin (ug/mL) 23.67 Laboratory Test : 07/08 0413 Chemistry BUN (9 - 20 mg/dL) 40 H Creatinine (0.7 - 1.3 mg/dL) 1.7 H Hematology WBC (5.0 - 12.0 x10 3/uL) 9.8 Microbiology: 07/08 1157 BLOOD: Blood Culture - RECD 07/08 1151 BLOOD: Blood Culture - RECD 07/06 1149 STOOL: Clostridioides difficile Toxin Assay - COMP Pertinent tests: RADIOLOGY - XR CHEST 1 V 07/08 0956 Report Impression - Status: SIGNED Entered: 07/08/2020 1025 IMPRESSION: No active disease in the chest. Impression By: [email or web address] - Rah Hollis MD Treatment plan: consult, initiation of therapy Rationale: Consulting MD: Dr. England Wt: 92 kg (actual BW) A/P: * Pt is a 34 y/o M admitted to [facility] 06/19/20 with uncontrolled HTN and s/p cardiac arrest * Pharmacy re-consulted to dose vancomyc in for empiric txt per Dr. England x 2 days; stop date currently 07/10 * 07/08: Tmax 39.0, WBC 9.8, SCr increased by 0.1 to 1.7; pt with ok UOP * Micro: bcx + Enterobacter, Enterococcus; sputu m cx +Enterobacter * Last dose of Vanc 1g given on 07/07 pm * Level 20 hrs later of 23.67; will not redose t handy * Will draw level tomorrow at 12p and re-dose wh en <15 Date DoT SCr/CrCl Level AUC Dose 07/06 - 1.0/>100 VT 23.85 @1813 1g q8hr 07/07 1 1.6/ 1g x1 @2118 07/08 2 1.7/72 23.67@1739 hold 07/09 3 level@12pm Electronically Signed by Rufina Mock RPh on at 2136 RPT #:[id number] END OF REPORT 2020-07-08 16:42:00-00:00 [facility] Neurology Progress Note REPORT#:[id number] REPORT STATUS: Signed DATE:07/08/20 TIME: 1641 PATIENT: JORGE GOINS UNIT #: [id number] ROOM[address]BED: [address] : [birth year] AGE: 34 SEX: M ATTEND: Luis M Olmedo MD ADM AUTHOR: Tanya Davila MD * ALL edits or amendments must be made on the el [employer]/computer document * Subjective Chief Complaint: Lethargy and AMS Patient reports: No: complaints. Comments: Remains lethargic on sedation. Appears to shrig his shoulders when I call out his name Objective General VS: Last Documented: Result Date Time Pulse Ox 100 07/08 1558 FiO2 50 07/08 1558 Pulse 83 07/08 1558 Resp 34 07/08 1256 B/P 111/55 07/08 1245 B/P Mean 77 07/08 1245 O2 Delivery Ventilator 07/08 1200 Temp 100.0 07/08 1200 O2 Flow Rate 0 01/10 0932 PATIENT WEIGHT: Weight (lb): 203 Weight (oz): 0.73 Weight (kg): 92.100 Medications Current Home Medications ALBUTEROL (PROAIR HFA 90 MCG/ACT 8.5 GM) 2 PUFF INH RTQ6H PRN PRN SOB ASPIRIN EC (ECOTRIN) 81 MG PO DAILY CARVEDILOL (COREG) 25 MG PO BID MEALS ACETAMINOPHEN/CODEINE (TYLENOL WITH CODE INE #4 300/60 MG) 1 TAB PO Q6H PRN PRN PAIN ATORVASTATIN (LIPITOR) 20 MG PO BEDTIME LOSARTAN (COZAAR) 100 MG PO DAILY NIFEdipine CC (ADALAT CC) 90 MG PO Q12HR HYDROCHLOROTHIAZIDE (HYDRODIURIL) 25 MG PO DAILY Active Meds + DC'd Last 24 Hrs Meropenem 500 MG Q8H IV Sterile Water 10 ML Hydrocodone Bitart/Acetaminophen 1 TAB Q4H PRN P RN FEED-TUBE Miscellaneous Information 1 EACH ASDIR IV (CKD) Ampicillin Sodium/Sulbactam Sodium 3 GM Q6HR IV (DC) Sodium Chloride 100 ML Vancomycin HCl 1,000 MG ONCE ONE IV (DC) Sodium Chloride 250 ML Miscellaneous Information 1 EACH ASDIR IV (DC) Nicardipine HCl 200 ML TITRATE IV Furosemide 40 MG BID@0700,1500 IV Acetaminophen 650 MG Q4H PRN PRN FEED-TUBE Potassium Bicarbonate/Citric Acid 40 MEQ DAILY P O (DC) Cefepime HCl 1 GM Q12HR IV (DC) Sterile Water 10 ML Losartan Potassium 50 MG DAILY PO Isosorbide Mononitrate 30 MG BID FEED-TUBE Potassium Bicarbonate/Citric Acid 20 MEQ DAILY F EED-TUBE Potassium Chloride 100 ML ASDIR PRN IV Propofol 100 ML TITRATE IV (CKD) Potassium Bicarbonate/Citric Acid 20 MEQ ASDIR P O (CKD) Potassium Chloride 100 ML ASDIR PRN IV Hydralazine HCl 100 MG Q8HR PO Labetalol HCl 400 MG Q8HR PO Magnesium 100 ML ASDIR PRN IV Magnesium Sulfate 50 ML ASDIR PRN IV Magnesium Sulfate 100 ML ASDIR PRN IV Clonidine HCl 0.2 MG Q7D TRANSDERM (CKD) Amlodipine Besylate 5 MG Q12HR PO Aspirin 81 MG DAILY FEED-TUBE Atorvastatin Calcium 40 MG DAILY FEED-TUBE Albuterol/Ipratropium 3 ML RTQ6H INH Dextrose/Water 25 ML ASDIR PRN IV Glucagon 1 MG ASDIR PRN IM Insulin Human Lispro LOW DOSE SCALE ASDIR SUBQ Sterile Water 1 ML ASDIR PRN IM Famotidine 20 MG DAILY PO Heparin Sodium (Porcine) 5,000 UNIT Q12HR SUBQ Esmolol HCl 250 ML TITRATE IV (CKD) Physical Exam General appearance: respiratory support, respons iveness, sedated Diagnosis, Assessment Plan Free Text A P: Assessment 1. Acute encephalopathy - multifactorial - metab olic/hypertensive emergency/ acute stroke 2. Acute ischemic strokes, suspect embolic sourc e, + PFO, b/l lower extremity dopplers negative 3. s/p PEA arrest 06/11/20 4. hypertensive emergency - still requiring akua rdipine drip and antihypertensives being adjusted 5. acute respiratory failure requiring intubatio n 6. complicated type b aortic dissection, in need of extension TEVAR when stable per vascular surgery Plan Heavily sedated so difficult to examine S/p trach and PEG- has NG tube in as well blood pressure control- on cardene continue medical management asa and statin consider PFO closure in future when medically st abilized d/w nurse at 1643 RPT #:[id number] END OF REPORT 2020-07-08 16:26:00-00:00 [facility] Nephrology Progress Note REPORT#:[id number] REPORT STATUS: Signed DATE:07/08/20 TIME: 1626 PATIENT: JORGE GOINS UNIT #: [id number] ROOM/BED: [address] : [birth year] AGE: 34 SEX: M ATTEND: Luis M Olmedo MD ADM AUTHOR: Ceferino De La Garza MD * ALL edits or amendments must be made on the rimidi/computer document * Subjective Comments: no acute changes Objective General VS/I O: Vital Signs: Date Time Temp Pulse Resp B/P B/P Pulse O2 O2 F low FiO2 Mean Ox Delivery Rate 07/08 1558 83 100 50 07/08 1256 99 34 100 07/08 1245 97 34 111/55 77 100 07/08 1230 100 35 130/62 89 100 07/08 1215 99 39 128/64 83 100 07/08 1206 100 41 126/58 84 100 07/08 1200 37.8 Ventilator 50 / 1200 100 38 96/61 72 100 07/08 1157 101 41 87/61 70 100 07/08 1145 101 34 97/59 72 100 07/08 1130 101 42 112/59 78 100 07/08 1115 102 39 114/56 79 100 01 1100 104 38 110/58 81 100 07/08 1045 105 39 111/54 77 100 07/08 1030 106 38 112/56 80 100 07/08 1015 109 38 123/58 84 100 07/08 1000 107 37 137/68 94 100 07/08 0945 106 39 126/61 88 100 07/08 0938 100 Ventilator 50 07/08 0938 106 100 50 07/08 0930 107 38 127/61 84 100 07/08 0915 105 40 128/61 88 100 07/08 0900 101 41 128/60 87 100 07/08 0845 101 42 125/60 87 100 07/08 0830 101 40 126/57 82 100 07/08 0815 101 43 122/55 81 100 07/08 0800 39.0 Ventilator 35 07/08 0800 Ventilator 35 07/08 0800 101 42 126/60 86 100 07/08 0745 101 48 129/60 87 100 07/08 0730 100 44 123/59 85 100 07/08 0727 100 46 100 07/08 0715 100 49 122/56 80 100 07/08 0700 99 51 122/59 85 100 07/08 0650 100 54 100 07/08 0645 99 51 120/58 84 100 07/08 0639 100 51 120/56 81 100 07/08 0617 105 100 40 07/08 0600 108 66 154/67 96 100 07/08 0545 110 51 145/59 93 100 07/08 0530 116 49 162/73 108 100 07/08 0515 117 181/86 123 100 07/08 0502 113 170/85 120 100 07/08 0500 111 100 07/08 0430 110 150/72 103 100 07/08 0415 104 147/70 100 100 07/08 0400 38.3 07/08 0400 99 41 153/73 105 100 07/08 0345 97 36 141/67 97 100 07/08 0330 97 38 139/65 93 100 / 0315 97 37 141/66 95 100 / 0300 97 37 142/66 95 100 / 0245 96 38 140/66 94 100 / 0230 96 34 137/64 92 100 / 0215 96 34 137/64 92 100 / 0200 96 36 137/64 92 100 / 0145 96 35 135/64 92 100 / 0130 97 35 141/66 95 100 07/08 0120 97 100 35 / 0115 96 33 137/64 92 100 / 0100 95 34 142/66 95 100 07/08 0045 98 34 142/67 95 100 / 0030 97 33 140/65 94 100 07/08 0015 97 33 143/67 97 100 07/08 0000 39.4 07/08 0000 97 33 150/70 101 100 07/07 2205 96 33 100 07/07 2200 95 33 146/67 97 100 07/07 2145 94 33 149/70 103 100 07/07 2130 93 33 146/68 98 100 07/07 2115 92 33 162/71 108 100 07/07 2100 94 28 162/75 105 100 07/07 2047 100 Ventilator 35 07/07 2047 93 100 35 07/07 204 91 33 158/76 109 100 07/07 2030 96 32 153/73 105 100 07/07 2015 95 31 145/70 100 100 07/07 2000 Ventilator 07/07 1999 95 34 151/71 102 100 07/07 1945 93 36 146/70 101 100 07/07 1943 38.3 07/07 1930 99 31 152/70 100 99 07/07 1915 94 36 148/71 101 99 07/07 1902 93 33 142/72 97 98 07/07 1900 93 35 150/70 100 98 07/07 1830 93 39 136/69 95 99 07/07 1815 91 44 132/68 93 100 07/07 1800 88 44 136/66 95 100 07/07 1745 86 32 131/63 90 100 07/07 1730 86 38 131/61 88 100 07/07 1715 85 39 122/61 86 99 07/07 1700 82 36 116/57 80 98 07/07 1645 81 38 119/58 82 98 07/07 1630 83 32 114/59 82 97 24 hour I O ending at 0700: 07/08 0700 07/07 1900 Intake Total 972.00 Output Total 1000 1825 Balance -1000 -853.00 Intake, IV 642.00 Intake, Tube 330 Feeding Output, Stool 550 Output, Urine 1000 1275 Medications Active Meds + DC'd Last 24 Hrs Meropenem 500 MG Q8H IV Sterile Water 10 ML Hydrocodone Bitart/Acetaminophen 1 TAB Q4H PRN P RN FEED-TUBE Miscellaneous Information 1 EACH ASDIR IV (CKD) Ampicillin Sodium/Sulbactam Sodium 3 GM Q6HR IV (DC) Sodium Chloride 100 ML Vancomycin HCl 1,000 MG ONCE ONE IV (DC) Sodium Chloride 250 ML Miscellaneous Information 1 EACH ASDIR IV (DC) Nicardipine HCl 200 ML TITRATE IV Furosemide 40 MG BID@0700,1500 IV Acetaminophen 650 MG Q4H PRN PRN FEED-TUBE Potassium Bicarbonate/Citric Acid 40 MEQ DAILY P O (DC) Cefepime HCl 1 GM Q12HR IV (DC) Sterile Water 10 ML Losartan Potassium 50 MG DAILY PO Isosorbide Mononitrate 30 MG BID FEED-TUBE Potassium Bicarbonate/Citric Acid 20 MEQ DAILY F EED-TUBE Nicardipine HCl 125 MG TITRATE IV (DC) Sodium Chloride 200 ML Potassium Chloride 100 ML ASDIR PRN IV Propofol 100 ML TITRATE IV (CKD) Potassium Bicarbonate/Citric Acid 20 MEQ ASDIR P O (CKD) Potassium Chloride 100 ML ASDIR PRN IV Hydralazine HCl 100 MG Q8HR PO Labetalol HCl 400 MG Q8HR PO Magnesium 100 ML ASDIR PRN IV Magnesium Sulfate 50 ML ASDIR PRN IV Magnesium Sulfate 100 ML ASDIR PRN IV Clonidine HCl 0.2 MG Q7D TRANSDERM (CKD) Amlodipine Besylate 5 MG Q12HR PO Aspirin 81 MG DAILY FEED-TUBE Atorvastatin Calcium 40 MG DAILY FEED-TUBE Albuterol/Ipratropium 3 ML RTQ6H INH Dextrose/Water 25 ML ASDIR PRN IV Glucagon 1 MG ASDIR PRN IM Insulin Human Lispro LOW DOSE SCALE ASDIR SUBQ Sterile Water 1 ML ASDIR PRN IM Famotidine 20 MG DAILY PO Heparin Sodium (Porcine) 5,000 UNIT Q12HR SUBQ Esmolol HCl 250 ML TITRATE IV (CKD) Physical Exam Head/eyes: normal conjunctiva/sclera Neck: trach in place Respiratory: symmetric expansion Genitourinary: zuñiga, urine (appears pink) Extremities: pedal edema improved Musculoskeletal: normal inspection Neuro/RADIOTELEGRAPHIST: SEDATED Hemodialysis access: Type: vascath Psychiatry: unable to evaluate Results Findings/Data: Laboratory Tests 07/08 07/08 1255 0420 Blood Gas Puncture Site R Radial ABG pH (7.35 - 7.45 pH units) 7.34 L 7.49 H ABG pCO2 (35 - 48 mmHg) 47.9 33.1 L ABG pO2 (83 - 108 mmHg) 207.5 H 154.2 H ABG PO2/FiO2 Ratio (mm/Hg) 415.00 440.57 ABG HCO3 (21 - 28 mmol/L) 25.8 25.4 ABG Total CO2 (22 - 29 mmol/L) 25.9 25.1 ABG O2 Sat Calc/Denise (94 - 98 %) 99.7 H 99.5 H ABG Base Excess (-2 - 3 mmol/L) -0.3 2.4 Emmanuel Test Positive Sodium (138 - 146 mmol/L) 144 145 Potassium (3.5 - 4.5 mmol/L) 2.8 L 3.0 L Ionized Calcium (1.15 - 1.33 MMOL/L) 1.10 L 1.0 9 L Respiration Rate (12 - 20 /MIN) 14 O2 Delivery Device Adult Vent Vent Mode PRVC PC/PS FiO2 (%) 50 35 Pressure Support (cmH2O) 12 Instrument (Specimen Descript) Arterial Arteria l Laboratory Tests 07/08 07/08 07/08 07/08 07/08 1353 1255 1239 1152 0726 Chemistry Potassium (3.4 - 5.0 mmol/L) 2.9 L POC Glucose (74 - 106 MG/DL) 87 100 64 L 85 07/08 07/08 07/07 07/07 0420 0413 2230 1638 Chemistry Sodium (137 - 145 mmol/L) 142 Potassium (3.4 - 5.0 mmol/L) 3.3 L 3.3 L Chloride (98 - 107 mmol/L) 106 Carbon Dioxide (22 - 30 mmol/L) 25 BUN (9 - 20 mg/dL) 40 H Creatinine (0.7 - 1.3 mg/dL) 1.7 H Glomerular Filtr Rate (>60) 60 Glucose (74 - 106 mg/dL) 86 POC Glucose (74 - 100 mg/dL) 85 109 H Calcium (8.4 - 10.2 mg/dL) 8.7 Laboratory Tests 07/08 0413 Hematology WBC (5.0 - 12.0 x10 3/uL) 9.8 RBC (4.70 - 6.10 x10 6/uL) 3.27 L Hgb (14.0 - 18.0 g/dL) 9.2 L Hct (37.0 - 49.0 %) 29.6 L MCV (80 - 94 fL) 91 MCH (27 - 31 pg) 28.1 MCHC (33 - 37 g/dL) 31.1 L RDW (11.5 - 15.5 %) 15.7 H Plt Count (130 - 400 x10 3/uL) 302 MPV (9.4 - 16.4 fL) 10.7 Neut % (Auto) (43 - 65 %) 80.6 H Lymph % (Auto) (20.5 - 45.5 %) 6.0 L Citrus % (Auto) (5.5 - 11.7 %) 9.7 Eos % (Auto) (0.9 - 2.9 %) 2.4 Baso % (Auto) (0.2 - 1.0 %) 0.2 Neut # (Auto) (2.2 - 4.8 x10 3/uL) 7.87 H Lymph # (Auto) (1.3 - 2.9 x10 3/uL) 0.59 L Citrus # (Auto) (0.3 - 0.8 x10 3/uL) 0.95 H Eos # (Auto) (0.0 - 0.2 x10 3/uL) 0.23 H Baso # (Auto) (0.0 - 0.1 x10 3/uL) 0.02 Total Counted (#CELLS) 100 Immature Gran % (0.0 - 2.0 %) 1.1 Seg Neutrophils % (43 - 65 %) 85 H Lymphocytes % (Manual) (20.5 - 45.5 %) 1 L Atypical Lymphs % (0 - 1 %) 2 H Monocytes % (Manual) (5.5 - 11.7 %) 5 L Eosinophils % (Manual) (0.9 - 2.9 %) 5 H Basophils % (Manual) (0.2 - 1.0 %) 1 Plasma Cell % (Manual) (<1 %) 1 Nucleated RBC % (0 - 1.0 %) 0.0 Platelet Estimate (ADEQUATE) ADEQUATE Plt Morphology Comment (NORMAL) NORMAL Polychromasia (NONE SEEN) 1+ H Anisocytosis (NONE SEEN) 1+ H Macrocytosis (NONE SEEN) 1+ H Radiology data: Recent Impressions: RADIOLOGY - XR CHEST 1 V 07/08 0152 Report Impression - Status: SIGNED Entered: 07/08/2020 0404 IMPRESSION: Interval development of right lung base infiltra te/atelectasis. Tracheostomy tube and nasogastric tube are prese nt. Pneumoperitoneum as known before. Impression By: [email or web address] Keyon Hayden MD RADIOLOGY - XR CHEST 1 V 07/08 0956 Report Impression - Status: SIGNED Entered: 07/08/2020 1025 IMPRESSION: No active disease in the chest. Impression By: [email or web address] - Rah Hollis MD Diagnosis, Assessment Plan Free Text A P: JENNIFER hypotension AAA lactic acidosis severe metabolic acidosis- resolved Metabolic alkalosis - resolved Cr stable good uop in zuñiga d/c lasix replace potassium agressively discussed with RN will monitor will monitor at 1942 RPT #:[id number] END OF REPORT 2020-07-08 09:34:00-00:00 [facility]) Pharmacy Prog.Note-Vancomycin REPORT#:[id number] REPORT STATUS: Signed DATE:07/08/20 TIME: 933 PATIENT: JORGE GOINS UNIT #: [id number] ROOM/BED: [address] : 86 AGE: 34 SEX: M ATTEND: Yoseph Olmedo MD ADM AUTHOR: Shannan Llamas RPh * ALL edits or amendments must be made on the el [employer]/computer document * Vancomycin Vancomycin Indication for treatment: Bacteremia Treatment plan: change regimen Additional Comments: DC BY DR BLANCHARD Electronically Signed by Shannan Llamas RPh on at 0935 RPT #:[id number] END OF REPORT 2020-07-08 09:06:00-00:[address] [facility] ([facility]) Infectious Dis. Progress Note REPORT#:[id number] REPORT STATUS: Signed DATE:07/08/20 TIME: 905 PATIENT: JORGE GOINS UNIT #: [id number] ROOM/BED: [address] : 86 AGE: 34 SEX: M ATTEND: Luis M Olmedo MD ADM AUTHOR: Faby Blanchard MD * ALL edits or amendments must be made on the rimidi/computer document * Subjective Chief Complaint: 07-07-20 INTUBATED UNRESPONSIVE BACTERMIA CVC WAS TAKEN OUT 07-08-2019 BREAHTING FAST UNRESPONSIVE NO FEVER ON THE VENT Objective General VS/I O: Laboratory Tests 07/08/20 0413: [Embedded Image Not Available] 07/07/20 2230: [Embedded Image Not Available] 07/07/20 0349: [Embedded Image Not Available] 07/06/20 1149: [Embedded Image Not Available] Microbiology: 07/06 1149 STOOL: Clostridioides difficile Toxin Assay - COMP 07/05 165 BLOOD: Blood Culture - RES Current Medications Sig/Ronan Start time Last Medication Dose Route Stop Time Status Admin Ampicillin Sodium/ 3 GM Q6HR 07/08 1200 UNV Sulbactam Sodium IV 07/22 1201 Sodium Chloride 100 ML Vancomycin HCl 1,000 MG ONCE ONE 07/07 2100 DC 07/07 Sodium Chloride 250 ML IV 07/07 2159 2118 Miscellaneous 1 EACH ASDIR 07/07 1930 DCr Information IV 07/21 1929 Nicardipine HCl 200 ML TITRATE 07/07 1630 AC IV 08/06 1631 Furosemide 40 MG BID@0700,1500 07/07 1500 AC IV 08/06 1501 1628 Vancomycin HCl 1,250 MG 0600,1800 07/07 0600 DC 07/07 Sodium Chloride 250 ML IV 07/12 0759 0538 Acetaminophen 650 MG Q4H PRN PRN 07/06 2100 AC 07/08 FEED-TUBE 08/05 2101 0528 Miscellaneous See Dose ASDIR 07/05 1530 DC Information Insts (1) IV 07/12 1529 Potassium 40 MEQ DAILY 07/05 0900 DC 07/05 Bicarbonate/Citric PO 07/08 0901 0828 Acid Cefepime HCl 1 GM Q12HR 07/04 1445 DCr 07/07 Sterile Water 10 ML IV 07/11 1444 2111 Losartan Potassium 50 MG DAILY 07/04 1415 AC PO 08/03 1416 0926 Isosorbide 30 MG BID 07/04 0900 AC 07/07 Mononitrate FEED-TUBE 08/03 0901 2112 Potassium 20 MEQ DAILY 07/03 1330 AC 07/07 Bicarbonate/Citric FEED-TUBE 08/02 1331 0927 Acid Nicardipine HCl 125 MG TITRATE 07/03 0815 DC Sodium Chloride 200 ML IV 08/02 0816 1436 Potassium Chloride 100 ML ASDIR PRN 07/03 0300 AC 07/06 IV 08/02 0301 0606 Propofol 100 ML TITRATE 07/01 2100 CKD 07/08 IV 07/11 2101 0724 Potassium 20 MEQ ASDIR 06/28 211 CKD 07/08 Bicarbonate/Citric PO 07/28 2116 0015 Acid Potassium Chloride 100 ML ASDIR PRN 06/28 2115 AC IV 07/28 2116 Hydralazine HCl 100 MG Q8HR 06/28 1400 AC 07/08 PO 07/28 1401 0522 Labetalol HCl 400 MG Q8HR 06/28 1400 AC 07/08 PO 07/27 1401 0522 Furosemide 100 MG Q20H 06/28 1100 DC 07/06 Sodium Chloride 90 ML IV 07/28 1101 1819 Magnesium 100 ML ASDIR PRN 06/28 0600 AC 07/06 IV 07/28 0601 0451 Magnesium Sulfate 50 ML ASDIR PRN 06/28 0600 AC IV 07/28 0601 Magnesium Sulfate 100 ML ASDIR PRN 06/28 0600 A C IV 07/28 0601 Clonidine HCl 0.2 MG Q7D 06/27 1245 CKD 07/04 TRANSDERM 07/27 1246 1243 Amlodipine Besylate 5 MG Q12HR 06/27 1015 AC PO 07/27 2101 2113 Aspirin 81 MG DAILY 06/27 09 AC 07/07 FEED-TUBE 07/27 0901 0928 Atorvastatin Calcium 40 MG DAILY 06/27 09 AC 07/07 FEED-TUBE 07/27 0901 0926 Albuterol/Ipratropium 3 ML RTQ6H 06/25 1400 AC 07/08 INH 07/25 1401 0117 Dextrose/Water 25 ML ASDIR PRN 06/21 2100 AC IV 07/21 2100 1243 Glucagon 1 MG ASDIR PRN 06/21 2100 AC IM 07/21 2100 Insulin Human Lispro See Dose ASDIR 06/21 2100 AC 06/24 Insts (2) SUBQ 07/21 2100 0357 Sterile Water 1 ML ASDIR PRN 06/21 2100 AC IM 07/21 2100 Famotidine 20 MG DAILY 06/20 0900 AC 07/07 PO 07/20 09 0925 Heparin Sodium 5,000 UNIT Q12HR 06/19 2100 AC 0 07/07 (Porcine) SUBQ 07/19 Esmolol HCl 250 ML TITRATE 06/19 0900 CKD / 9 IV 07/19 0901 1914 Dose Instructions: (1)Miscellaneous Information: BACTEREMIA (2)Insulin Human Lispro: LOW DOSE SCALE Recent Impressions-Last 72 Hrs RADIOLOGY - XR CHEST 1 V 07/06 0400 Report Impression - Status: SIGNED Entered: 07/06/2020 0616 IMPRESSION: Mild worsening in the pulmonary edema. Slight improvement in intraperitoneal free air. Impression By: Curt Robins RADIOLOGY - XR CHEST 1 V 07/07 0516 Report Impression - Status: SIGNED Entered: 07/07/2020 0632 IMPRESSION: Improving pulmonary edema. Free air the upper abdomen may have slightly wor sened. Impression By: Curt Robins RADIOLOGY - XR CHEST 1 V 07/08 0152 Report Impression - Status: SIGNED Entered: 07/08/2020 0404 IMPRESSION: Interval development of right lung base infiltra te/atelectasis. Tracheostomy tube and nasogastric tube are prese nt. Pneumoperitoneum as known before. Impression By: [email or web address] Keyon Hayden MD Last Documented: Result Date Time Pulse Ox 100 07/08 726 Pulse 100 07/08 726 Resp 46 07/08 726 B/P 122/56 07/08 714 B/P Mean 80 01/13 0715 FiO2 40 07/08 0617 Temp 38.3 07/08 0400 O2 Delivery Ventilator 07/07 2047 O2 Flow Rate 0 07/05 0932 Vital Signs Date Temp Pulse Resp B/P B/P Mean Pulse Ox FiO 2 07/07-07/08 37.1-39.4 78-117 22-66 96-181/52-88 70-123 97-100 35-40 24 hour I O ending at 0700: 07/08 0700 07/07 1900 Intake Total 972.00 Output Total 1000 1825 Balance -1000 -853.00 Intake, IV 642.00 Intake, Tube 330 Feeding Output, Stool 550 Output, Urine 1000 1275 PATIENT WEIGHT: Weight (lb): 203 Weight (oz): 0.73 Weight (kg): 92.100 Physical Exam General appearance: altered mental status, chron ically ill appearing, respiratory support ENT: TRACH Cardiovascular: tachycardia Respiratory: ON VENT 50 % Abdomen: non-tender, soft, no guarding, no rebou nd Genitourinary: zuñiga Skin: dry Treatment Prophylaxis Treatment Prophylaxis CVC/PICC documentation: The data below has been imported from nursing do cumentation. Any exceptions have been noted below under Provider comments. CVC/PICC insertion date/time: No CVC/PICC Provider comments on imported nursing data: [] Diagnosis, Assessment Plan Problem List/A P: 1. Multifocal pneumonia 2. Bacteremia due to Enterobacter species 3. Bacteremia due to Enterococcus 4. Pneumonia due to enterobacter aerogenes Free Text A P: 07-07-20 CVC WAS D/C SOURCE OF BACTEREMIA !!!!!!!!!!! VANCO + CEFPEIME FOR NOW CHECK SENSITIVITIES. IF REPEAT CX ARE + FOR ENTOEROCOCCCI>>>> CHEKC A N ECHO 07-08-2019 CXR STAT PNA MIXED BACTEREMIA UNASYN REPEAT BLOOD CX Electronically Signed by Faby Blanchard MD on 0 07/08/20 at 0909 RPT #:[id number] END OF REPORT 2020-07-07 23:45:00-00:[address] [facility] ([facility]) Critical Care Progress Note REPORT#:[id number] REPORT STATUS: Signed DATE:07/07/20 TIME: 2344 PATIENT: JORGE GOINS UNIT #: [id number] ROOM/BED: [address] : [birth year] AGE: 34 SEX: M ATTEND: Raphael Davila MD ADM AUTHOR: Edy Olmedo MD * ALL edits or amendments must be made on the rimidi/computer document * Subjective Chief Complaint: s/p trach febrile mental status unchanged Objective Physical Exam Head/Eyes: atraumatic, normocephalic Cardiovascular: normal heart sounds, normal S1 S 2, normal rate and rhythm Respiratory/Chest: aerating well, clear to auscu ltation Abdomen: soft, non-tender, normal bowel sounds, no distention Extremities: no edema Neuro/RADIOTELEGRAPHIST: disoriented Diagnosis, Assessment Plan Free text A P: 34 year old male with history of aortic dissecti on s/p EVAR came in for hypertensive urgency A/P: Neuro -intubated -MRI multiple ischemic cva #AMS -MRI multifocal cva -on versed -neuro following Pulm -s/p trach -wean as tolerated CV #s/p Cardiac Arrest - PEA hypotensive. ROSC achieved after 9 minutes - likely from cardiogenic shock EF 30-34% - Aortic dissection ruled out from CTA chest , a bdomen and pelvis #hx of EVAR for aortic dissection and h/o endole ak in the past - per vascular surgery -uncontrolled hypertension still requiring esmolol and cardene # Fever carvajal culture start cefepie GI vomitted yesterday ileus NGT place to low intermittent suction now abdomen soft and bowel sounds heard will start clamping NGT and trickle feeds and se e how he does Renal stable gi ppx: pepcid dvt ppx: heparin Diet: tube feeds condition critical prognosis guarded CC time more than 45 minutes Reviewed chart/images Excludes all procedure time Electronically Signed by Edy Olmedo MD on 11/13 at 0122 RPT #:[id number] END OF REPORT 2020-07-07 23:44:00-00:[address] [facility] ([facility]) Critical Care Progress Note REPORT#:[id number] REPORT STATUS: Signed DATE:07/07/20 TIME: 2343 PATIENT: JORGE GOINS UNIT #: [id number] ROOM/BED: [address] : 86 AGE: 34 SEX: M ATTEND: Raphael Davila MD ADM AUTHOR: Edy Olmedo MD * ALL edits or amendments must be made on the [employer]/computer document * Subjective Chief Complaint: s/p trach febrile mental status unchanged Comments: Late note for 07/06/2020 Objective Physical Exam Head/Eyes: atraumatic, normocephalic Cardiovascular: normal heart sounds, normal S1 S 2, normal rate and rhythm Respiratory/Chest: aerating well, clear to auscu ltation Abdomen: soft, non-tender, normal bowel sounds, no distention Extremities: no edema Neuro/RADIOTELEGRAPHIST: disoriented Diagnosis, Assessment Plan Free text A P: 34 year old male with history of aortic dissecti on s/p EVAR came in for hypertensive urgency A/P: Neuro -intubated -MRI multiple ischemic cva #AMS -MRI multifocal cva -on versed -neuro following Pulm -s/p trach -wean as tolerated CV #s/p Cardiac Arrest - PEA hypotensive. ROSC achieved after 9 minutes - likely from cardiogenic shock EF 30-34% - Aortic dissection ruled out from CTA chest , a bdomen and pelvis #hx of EVAR for aortic dissection and h/o endole ak in the past - per vascular surgery -uncontrolled hypertension still requiring esmolol and cardene # Fever carvajal culture start cefepie GI vomitted yesterday ileus NGT place to low intermittent suction now abdomen soft and bowel sounds heard will start clamping NGT and trickle feeds and se e how he does Renal stable gi ppx: pepcid dvt ppx: heparin Diet: tube feeds condition critical prognosis guarded CC time more than 45 minutes Reviewed chart/images Excludes all procedure time Electronically Signed by Edy Olmedo MD on 11/13 at 0122 RPT #:[id number] END OF REPORT 2020-07-07 22:00:00-00:[address] [facility] ([facility]) Cardiology Progress Note REPORT#:[id number] REPORT STATUS: Signed DATE:07/07/20 TIME: 2199 PATIENT: JORGE GOINS UNIT #: [id number] ROOM/BED: [address] : [birth year] AGE: 34 SEX: M ATTEND: Luis M Olmedo MD ADM AUTHOR: Giancarlo Phan MD * ALL edits or amendments must be made on the rimidi/computer document * Subjective Free Text Subj Notes Free Text Subj Notes: No real change overnight. Objective Physical Exam Head/Eyes: atraumatic, normocephalic ENT: moist mucosal membranes, normal nose Neck: non-tender, supple/no meningismus, traches otomy prsent Cardiovascular: CV assessment: regular rate and rhythm, no murm ur Respiratory: no distress, coarse breathsounds, m echanically ventialted Abdomen: soft, non-tender Upper extremity: UE assessment: normal capillary refill, normal temperature Lower extremity: LE assessment: normal capillary refill, normal temperature, no edema Musculoskeletal: normal inspection Neuro/RADIOTELEGRAPHIST: vented via trachesotomy, not followin g commands Diagnosis, Assessment Plan Free Text DxA P Notes Free Text DxA P Notes: 1. Hypertensive urgency/emergency - presented with severely elevated BP requiring 2 IV infusions, subsequently suffered PEA cardiac arrest - BP control improving - cont hydralazine 100mg Q8H, labetalol 400mg Q 8H, clonidine patch - norvasc 5mg PO BID and ISMN 30mg BID - increase losartan to 50mg QD - wean cardene, off esmolol 2. Cardiac arrest - PEA in etiology, pt became hypothermic and sub sequently bradycardic 3. Type B aortic dissection s/p EVAR - has residual descending aortic dissect ion extending into iliacs. No evidence of rupture on CTA. Reviewed by vascular surgery - appreciate assitance - optimal BP Control as above 4. Acute on chronic systolic heart failure - likely hypertensive heart disease due to long standing elevated BP - warm and well perfused on examination - cont lasix gtt 5. Shock - resolved 6. JENNIFER on CKD stage 3 - improved - likely secondary to fluctuation in BP - nephrology following, appreciate recommendatio ns - monitor UOP 7. Acute hypoxic respiratory failure - wean from ventilator as tolerated, now has tra cheostomy- per ICU team 8. Stroke: - CT head and MRI with evidence of prior CVA - TTE with possible PFO - mo nitor for neurological improvement then will discuss with family potential PFO closure if patient is a cadidate Will follow. Please call if questions. [facility] Cardiology Electronically Signed by Giancarlo Phan MD on 06/26 08/16 at 2203 RPT #:[id number] END OF REPORT 2020-07-07 20:12:00-00:[address] [facility] ([facility]) Pharmacy Prog.Note-Vancomycin REPORT#:[id number] REPORT STATUS: Signed DATE:07/07/20 TIME: 2011 PATIENT: JORGE GOINS UNIT #: [id number] ROOM/BED: [address] : [birth year] AGE: 34 SEX: M ATTEND: Luis M Olmedo MD ADM AUTHOR: Mariola Murillo [facility] * ALL edits or amendments must be made on the rimidi/computer document * Vancomycin Vancomycin Goal trough: AUC 400-600 Indication for treatment: Bacteremia Current therapy: Medication(s) Ordered: Anti-Infective Agents Sig/Ronan Start time Last Medication Dose Route Stop Time Status Admin Vancomycin HCl 1,000 MG ONCE ONE 07/07 2100 AC Sodium Chloride 250 ML IV 07/07 2159 Miscellaneous 1 EACH ASDIR 07/07 1930 CKD Information IV 07/21 1929 Vancomycin HCl 1,250 MG 0600,1800 07/07 0600 DC 07/07 Sodium Chloride 250 ML IV 07/12 0759 0538 Vancomycin HCl 1,000 MG 0200,1000,1800 07/06 02 00 DC 07/06 Sodium Chloride 250 ML IV 07/06 2200 1818 Miscellaneous See Dose ASDIR 07/05 1530 DC Information Insts (1) IV 07/12 1529 Cefepime HCl 1 GM Q12HR 07/04 1445 AC 07/07 Sterile Water 10 ML IV 07/11 1444 0928 Labs: Laboratory Test : 07/07 0349 Chemistry BUN (9 - 20 mg/dL) 31 H Creatinine (0.7 - 1.3 mg/dL) 1.6 H Hematology WBC (5.0 - 12.0 x10 3/uL) 11.1 Microbiology: 07/06 1149 STOOL: Clostridioides difficile Toxin Assay - COMP 07/05 1655 BLOOD: Blood Culture - RES Treatment plan: consult, initiation of therapy Rationale: Consulting MD: Dr. Blanchard Wt: 92 kg (actual BW) A/P: * Pt is a 34 y/o M admitted to [facility] 06/19/20 with uncontrolled HTN and s/p cardiac arrest * Pharmacy re-consulted to dose vancomycin for b acteremia due to new fevers; stop date currently 07/21 * 07/07: Tmax 38.3, WBC 11.8, SCr 1.6 (increased overnight from 1.0) * Micro: bcx + Enterobacter, Enterococcus; sputu m cx +Enterobacter * Pt received last dose of previous 1g q8h regim en 07/06 @1818, approx. 24 hrs ago. * Due to JENNIFER and high likely clark that pt did not clear the last dose sufficienty , will not re-load at this time. Estimat ed t1/2= 12 hrs. Will redose with 1g @ 2100 * 12-hr VR 07/08 @0900 Date DoT SCr/CrCl Level AUC Dose 07/06 - 1.0/>100 VT 23.85 @1813 1g q8hr 07/07 1 1.6/76 VR @0900 1g x1 @2100 at 2038 RPT #:[id number] END OF REPORT 2020-07-07 19:41:00-00:[address] [facility] ([facility]) Nephrology Progress Note REPORT#:[id number] REPORT STATUS: Signed DATE:07/07/20 TIME: 1940 PATIENT: JORGE GOINS UNIT #: [id number] ROOM/BED: [address] : 86 AGE: 34 SEX: M ATTEND: Luis M Olmedo MD ADM AUTHOR: Ceferino De La Garza MD * ALL edits or amendments must be made on the el [employer]/computer document * Subjective Comments: seen at bedside events noted Objective General VS/I O: Vital Signs: Date Time Temp Pulse Resp B/P B/P Pulse O2 O2 F low FiO2 Mean Ox Delivery Rate 07/07 1830 93 39 136/69 95 99 07/07 1815 91 44 132/68 93 100 07/07 1800 88 44 136/66 95 100 07/07 1745 86 32 131/63 90 100 07/07 1730 86 38 131/61 88 100 07/07 1715 85 39 122/61 86 99 07/07 1700 82 36 116/57 80 98 07/07 1645 81 38 119/58 82 98 07/07 1630 83 32 114/59 82 97 07/07 1615 84 32 113/58 82 98 07/07 1600 37.1 07/07 1600 83 41 110/58 77 100 07/07 1550 83 100 35 07/07 1545 80 35 106/53 75 100 07/07 1530 82 35 110/54 78 100 07/07 1515 86 37 118/55 79 100 07/07 1500 87 39 128/61 86 100 07/07 1445 91 37 137/61 92 100 07/07 1430 91 37 145/70 100 100 07/07 1415 89 34 151/72 104 100 07/07 1400 89 34 149/71 102 100 07/07 1341 88 37 100 07/07 1330 86 29 139/65 94 100 07/07 1315 86 25 144/74 95 100 07/07 1300 84 27 134/65 92 100 07/07 1254 83 100 35 07/07 1245 83 23 132/64 92 100 07/07 1230 81 25 137/66 95 100 07/07 1215 80 25 136/65 94 100 07/07 1200 81 22 130/62 89 100 07/07 1145 78 25 123/62 86 100 07/07 1130 80 25 114/59 79 100 07/07 1115 80 24 109/58 79 100 07/07 1100 80 22 98/53 71 100 07/07 1047 81 29 100 07/07 1045 81 27 96/52 70 100 07/07 1030 82 29 101/54 73 100 07/07 1015 85 27 125/63 88 100 07/07 1000 87 23 153/75 103 100 07/07 0945 79 26 140/88 105 100 01/12 0930 78 24 132/66 92 100 01/12 0915 80 22 133/66 93 100 01/12 0909 100 Ventilator 35 01/12 0909 80 100 35 01/12 0900 77 22 139/68 96 100 01/12 0845 80 22 136/64 92 100 01/12 0830 81 24 133/64 92 100 01/12 0815 81 24 131/67 92 100 01/12 0800 37.3 01/12 0800 35 01/12 0800 80 23 131/68 95 100 01/12 0745 128/65 90 01/12 0730 83 26 120/63 85 100 01/12 0715 116/63 84 01/12 0700 Ventilator 01/12 0700 85 32 116/63 83 100 01/12 0603 85 33 100 01/12 0600 85 32 115/60 81 100 01/12 0545 91 29 122/64 88 100 01/12 0530 92 33 121/64 86 100 01/12 0515 93 32 120/63 85 100 01/12 0500 93 32 128/66 90 100 01/12 0445 93 32 124/64 88 100 01/12 0430 93 30 124/64 87 100 01/12 0415 94 29 128/63 89 100 01/12 0400 37.8 01/12 0400 92 29 122/61 84 100 01/12 0345 91 47 122/62 84 100 01/12 0338 92 100 35 01/12 0330 90 31 106/59 76 100 01/12 0315 91 31 110/60 78 100 01/12 0300 91 34 111/59 79 100 01/12 0245 93 38 111/61 80 100 01/12 0230 92 38 103/59 76 100 01/12 0215 93 36 111/55 76 100 01/12 0200 94 30 103/59 78 100 01/12 0145 94 35 108/58 78 100 01/12 0130 93 30 106/58 79 100 01/12 0115 95 29 110/57 75 100 01/12 0100 105/57 76 01/12 0059 94 33 100 01/12 0045 96 38 106/55 76 100 01/12 0030 105/53 74 01/12 0015 97 37 105/55 75 100 01/12 0000 36.6 01/12 0000 38.8 01/12 0000 97 46 105/56 76 100 01/11 2330 97 48 106/53 75 100 07/06 2315 97 47 112/58 82 100 07/06 2300 98 52 112/54 78 100 07/065 100 41 112/55 73 100 07/060 101 55 106/53 76 100 07/06 2215 104 56 104/53 76 100 07/06 2200 107 55 115/53 77 100 07/065 109 47 114/58 80 100 07/06 2129 118 50 126/61 86 99 07/06 2114 114 47 145/76 102 99 07/06 2099 113 53 145/71 101 99 07/06 2044 115 51 149/71 101 86 07/06 2029 114 60 159/72 105 95 07/06 2026 100 Ventilator 35 07/06 2026 113 100 35 07/06 2014 114 40 156/75 108 100 07/06 1999 Ventilator 07/06 1999 112 53 151/76 104 07/06 1945 113 45 152/77 107 24 hour I O ending at 0700: 07/07 0700 07/06 1900 Intake Total 6722.00 1555.00 Output Total 1500 Balance 5222.00 1555.00 Intake, IV 6722.00 1041.00 Intake, Tube 394 Feeding Intake, Tube 120 Irrigant Output, Urine 1500 Medications Active Meds + DC'd Last 24 Hrs Miscellaneous Information 1 EACH ASDIR IV (PEND) Nicardipine HCl 200 ML TITRATE IV Furosemide 40 MG BID@0700,1500 IV Vancomycin HCl 1,250 MG 0600,1800 IV (DC) Sodium Chloride 250 ML Morphine Sulfate 2 MG ONCE ONE IV (DC) Acetaminophen 650 MG Q4H PRN PRN FEED-TUBE Vancomycin HCl 1,000 MG 0200,1000,1800 IV (DC) Sodium Chloride 250 ML Miscellaneous Information BACTEREMIA ASDIR IV (DC) Potassium Bicarbonate/Citric Acid 40 MEQ DAILY P O Cefepime HCl 1 GM Q12HR IV Sterile Water 10 ML Losartan Potassium 50 MG DAILY PO Isosorbide Mononitrate 30 MG BID FEED-TUBE Potassium Bicarbonate/Citric Acid 20 MEQ DAILY F EED-TUBE Nicardipine HCl 125 MG TITRATE IV (DC) Sodium Chloride 200 ML Potassium Chloride 100 ML ASDIR PRN IV Propofol 100 ML TITRATE IV (CKD) Perflutren Lipid Microsphere DIRECTED ONCE PRN IV (DC) Sodium Chloride DIRECTED ONCE PRN IV (DC) Sodium Chloride 5 ML ONCE PRN IV (DC) Potassium Bicarbonate/Citric Acid 20 MEQ ASDIR P O (CKD) Potassium Chloride 100 ML ASDIR PRN IV Hydralazine HCl 100 MG Q8HR PO Labetalol HCl 400 MG Q8HR PO Furosemide 100 MG Q20H IV (DC) Sodium Chloride 90 ML Magnesium 100 ML ASDIR PRN IV Magnesium Sulfate 50 ML ASDIR PRN IV Magnesium Sulfate 100 ML ASDIR PRN IV Clonidine HCl 0.2 MG Q7D TRANSDERM (CKD) Amlodipine Besylate 5 MG Q12HR PO Aspirin 81 MG DAILY FEED-TUBE Atorvastatin Calcium 40 MG DAILY FEED-TUBE Albuterol/Ipratropium 3 ML RTQ6H INH Dextrose/Water 25 ML ASDIR PRN IV Glucagon 1 MG ASDIR PRN IM Insulin Human Lispro LOW DOSE SCALE ASDIR SUBQ Sterile Water 1 ML ASDIR PRN IM Famotidine 20 MG DAILY PO Heparin Sodium (Porcine) 5,000 UNIT Q12HR SUBQ Esmolol HCl 250 ML TITRATE IV (CKD) Physical Exam Head/eyes: normal conjunctiva/sclera Neck: trach in place Respiratory: symmetric expansion Genitourinary: zuñiga, urine (appears pink) Extremities: pedal edema improved Musculoskeletal: normal inspection Psychiatry: unable to evaluate Results Findings/Data: Laboratory Tests 07/07 356 Blood Gas Puncture Site R Radial ABG pH (7.35 - 7.45 pH units) 7.45 ABG pCO2 (35 - 48 mmHg) 35.3 ABG pO2 (83 - 108 mmHg) 192.8 H ABG PO2/FiO2 Ratio (mm/Hg) 550.85 ABG HCO3 (21 - 28 mmol/L) 24.7 ABG Total CO2 (22 - 29 mmol/L) 24.5 ABG O2 Sat Calc/Denise (94 - 98 %) 99.7 H ABG Base Excess (-2 - 3 mmol/L) 1.1 Emmanuel Test N/A Sodium (138 - 146 mmol/L) 144 Potassium (3.5 - 4.5 mmol/L) 2.9 L Ionized Calcium (1.15 - 1.33 MMOL/L) 1.10 L Respiration Rate (12 - 20 /MIN) 12 O2 Delivery Device Adult Vent Vent Mode SIMV FiO2 (%) 35 Instrument (Specimen Descript) Arterial Laboratory Tests 01/12 01/12 01/11 0357 0349 2131 Chemistry Sodium (137 - 145 mmol/L) 140 Potassium (3.4 - 5.0 mmol/L) 3.1 L Chloride (98 - 107 mmol/L) 103 Carbon Dioxide (22 - 30 mmol/L) 27 BUN (9 - 20 mg/dL) 31 H Creatinine (0.7 - 1.3 mg/dL) 1.6 H Glomerular Filtr Rate (>60) 64 Glucose (74 - 106 mg/dL) 112 H POC Glucose (74 - 100 mg/dL) 115 H 105 Calcium (8.4 - 10.2 mg/dL) 8.6 Magnesium (1.6 - 2.3 mg/dL) 2.1 Laboratory Tests 07/07 0349 Hematology WBC (5.0 - 12.0 x10 3/uL) 11.1 RBC (4.70 - 6.10 x10 6/uL) 3.30 L Hgb (14.0 - 18.0 g/dL) 9.3 L Hct (37.0 - 49.0 %) 30.6 L MCV (80 - 94 fL) 93 MCH (27 - 31 pg) 28.2 MCHC (33 - 37 g/dL) 30.4 L RDW (11.5 - 15.5 %) 15.6 H Plt Count (130 - 400 x10 3/uL) 308 MPV (9.4 - 16.4 fL) 10.2 Neut % (Auto) (43 - 65 %) 82.2 H Lymph % (Auto) (20.5 - 45.5 %) 6.2 L Citrus % (Auto) (5.5 - 11.7 %) 9.0 Eos % (Auto) (0.9 - 2.9 %) 1.0 Baso % (Auto) (0.2 - 1.0 %) 0.2 Neut # (Auto) (2.2 - 4.8 x10 3/uL) 9.12 H Lymph # (Auto) (1.3 - 2.9 x10 3/uL) 0.69 L Citrus # (Auto) (0.3 - 0.8 x10 3/uL) 1.00 H Eos # (Auto) (0.0 - 0.2 x10 3/uL) 0.11 Baso # (Auto) (0.0 - 0.1 x10 3/uL) 0.02 Total Counted (#CELLS) 100 Immature Gran % (0.0 - 2.0 %) 1.4 Seg Neutrophils % (43 - 65 %) 81 H Lymphocytes % (Manual) (20.5 - 45.5 %) 4 L Atypical Lymphs % (0 - 1 %) 1 Monocytes % (Manual) (5.5 - 11.7 %) 14 H Nucleated RBC % (0 - 1.0 %) 0.0 Metamyelocytes (0 - 0 %) 1 H Platelet Estimate (ADEQUATE) ADEQUATE Plt Morphology Comment (NORMAL) NORMAL Polychromasia (NONE SEEN) 1+ H Anisocytosis (NONE SEEN) 1+ H Microcytosis (NONE SEEN) 1+ H Radiology data: Recent Impressions: RADIOLOGY - XR CHEST 1 V 07/07 0516 Report Impression - Status: SIGNED Entered: 07/07/2020 0632 IMPRESSION: Improving pulmonary edema. Free air the upper abdomen may have slightly wor sened. Impression By: [email or web address] Keyon Robins Diagnosis, Assessment Plan Free Text A P: JENNIFER hypotension AAA lactic acidosis severe metabolic acidosis- resolved Metabolic alkalosis - resolved Cr stable good uop in zuñiga change furosemide to pushes alkalosis better replace potassium agressively - recheck tonight will monitor will monitor at [address] [facility] #:[id number] END OF REPORT 2020-07-07 19:26:00-00:00 [id number] [facility] [address] [facility] [address] [place] [address] PATIENT NAME: JORGE GOINS ADMIT DATE: 06/19 ACCOUNT NO: [id number] ROOM NO: [facility] AGE: 34 REPORT TYPE: CONSULTATION SEX: M ADMITTING PHYSICIAN:Raphael Davila MD ATTENDING PHYSICIAN:Raphael Davila MD CONSULTATION DATE: 07/07/2020 CONSULTING PHYSICIAN: Faby Blanchard MD INFECTIOUS DISEASE CONSULTATION REASON FOR THE CONSULTATION: Bacteremia. HISTORY OF PRESENT ILLNESS: Mr. Goins is a 34- year-old gentleman, who is currently intubated in the ICU. He is status pos t cardiac arrest, AAA repair, TAVR device, brain hemorrhage, trach and PEG. Th e patient had developed fever and a sepsis-like picture and culture was drawn peripherally. He is growing Enterococcus and Enterobacte r in the blood and is growing Enterobacter from the trach. Infectious disease was consulted to manage the a ntibiotics. There were some concerns that the patient is high risk for getti ng endovascular infection. The patient was examined with the help of his nu rse and essentially is unresponsive. He is on a CPAP, is not running a fever. A central line was taken out and he had a Zuñiga catheter and a rect al tube. PAST MEDICAL HISTORY: Signif icant for history of uncontrolled hypertension, AAA repair, history of TAVR ____ resection, congesti ve heart failure, cholecystectomy, noncompliance. He is status pos t cardiac arrest and being unresponsive, acquired a PEG and a trach during this hospitalization. SOCIAL HISTORY: Negative x3. ALLERGIES: ALLERGIC TO IODINE AND SULFA. CURRENT MEDICATIONS: Aspirin, atorvastatin, famo tidine, Lasix, heparin, insulin, vancomycin, cefepime, and other medicat ions p.r.n. PHYSICAL EXAMINATION: GENERAL: The patient looks chronically ill. He i s unresponsive, not sedated. VITAL SIGNS: T-max of 38+, a T-current of 37.1, a pulse of the 90s, breathing 39 on a CPAP, blood pressure 130s/60s, satting 9 9% on a CPAP of 35 FiO2. LUNGS: Patient is currently on CPAP. ABDOMEN: Soft, not distended. He had a PEG tube and a trach site is clean. GENITOURINARY: The patient had acquired a Zuñiga catheter. EXTREMITIES: Without edema, cyanosis, or clubbin g. PATIENT NAME: JORGE GOINS [id number] LABORATORY DATA AND DIAGNOSTIC STUDIES: ABG 7.45 , 35, 192; satting 99.7 on 35 FiO2. Sodium 140, potassium 3.1, chloride 103, c arbon dioxide 27, BUN and creatinine of 31 and 1.6. WBCs 11.1, H a nd H 9.3 and 30.6, platelet count 308, 82% neutrophils. Blood culture is positive for E nterobacter aeruginosa and enterococci and a sputum culture is posi tive for Enterobacter aerogenous. A CT of the head on 06/29 showed a tiny acute infarct in the left frontal and occipital lobes that are better demonstr ated on MRI, scattered periventricular and subcortical hypodensitie s are redemonstrated. Chest x-ray showed "improving pulmonary edema." ASSESSMENT AND PLAN: 1. Sepsis. 2. Enterobacter pneumonia. 3. Mixed bacteremia with Enterobacter enterococc i. 4. Renal failure. DISCUSSION: 1. Continue current antibiotics, cefepime and va ncomycin, awaiting for the final cultures and then we will streamline his a ntibiotics. 2. If repeat cultures are positive, we will get a 2D echo to rule out endocarditis. We will follow. Thank you very much. Dictated By: Faby Blanchard MD WT: CON:CLUCY/BEBETO/NTS Conf#: [id number]/DID#: [id number] Authenticated by Faby Blanchard On 07/29/2020 0 7:45:27 AM at 0745 PATIENT NAME: JORGE GOINS [id number] 19:07:00-00:00 [facility] Infectious Dis. Progress Note REPORT#:[id number] REPORT STATUS: Signed DATE:07/07/20 TIME: 1906 PATIENT: JORGE GOINS UNIT #: [id number] ROOM/BED: [address] : [birth year] AGE: 34 SEX: M ATTEND: Luis M Olmedo MD ADM AUTHOR: Faby Blanchard MD * ALL edits or amendments must be made on the el [employer]/computer document * Subjective Chief Complaint: 07-07-20 INTUBATED UNRESPONSIVE BACTERMIA CVC WAS TAKEN OUT Objective General VS/I O: Laboratory Tests 07/07/20 0349: [Embedded Image Not Available] 07/06/20 1149: [Embedded Image Not Available] 07/06/20 0317: [Embedded Image Not Available] Microbiology: 07/06 1149 STOOL: Clostridioides difficile Toxin Assay - COMP 07/05 1655 BLOOD: Blood Culture - RES Current Medications Sig/Ronan Start time Last Medication Dose Route Stop Time Status Admin Nicardipine HCl 200 ML TITRATE 07/07 1630 AC IV 08/06 1631 Furosemide 40 MG BID@0700,1500 07/07 1500 AC IV 08/06 1501 1628 Vancomycin HCl 1,250 MG 0600,1800 07/07 0600 DC 07/07 Sodium Chloride 250 ML IV 07/12 0759 0538 Morphine Sulfate 2 MG ONCE ONE 07/06 2115 DC IV 07/06 211 2126 Acetaminophen 650 MG Q4H PRN PRN 07/06 2100 AC 07/06 FEED-TUBE 08/05 2101 2106 Vancomycin HCl 1,000 MG 0200,1000,1800 07/06 0 200 DC 07/06 Sodium Chloride 250 ML IV 07/06 2200 1818 Miscellaneous See Dose ASDIR 07/05 1530 DC Information Insts (1) IV 07/12 1529 Potassium 40 MEQ DAILY 07/05 0900 AC 07/05 Bicarbonate/Citric PO 07/08 0901 0828 Acid Cefepime HCl 1 GM Q12HR 07/04 1445 AC 07/07 Sterile Water 10 ML IV 07/11 1444 0928 Losartan Potassium 50 MG DAILY 07/04 1415 AC PO 08/03 1416 0926 Isosorbide 30 MG BID 07/04 0900 AC 07/07 Mononitrate FEED-TUBE 08/03 0901 0928 Potassium 20 MEQ DAILY 07/03 1330 AC 07/07 Bicarbonate/Citric FEED-TUBE 08/02 1331 0927 Acid Nicardipine HCl 125 MG TITRATE 07/03 0815 DC Sodium Chloride 200 ML IV 08/02 0816 1436 Potassium Chloride 100 ML ASDIR PRN 07/03 0300 AC 07/06 IV 08/02 0301 0606 Propofol 100 ML TITRATE 07/01 2100 CKD 07/07 IV 07/11 2101 1714 Perflutren Lipid See Dose ONCE PRN 06/29 1430 D C Microsphere Insts (2) IV Sodium Chloride See Dose ONCE PRN 06/29 1430 D C Insts (3) IV Sodium Chloride 5 ML ONCE PRN 06/29 1430 DC IV Potassium 20 MEQ ASDIR 06/28 2115 CKD 07/07 Bicarbonate/Citric PO 07/28 2116 0533 Acid Potassium Chloride 100 ML ASDIR PRN 06/28 2115 AC IV 07/28 2116 Hydralazine HCl 100 MG Q8HR 06/28 1400 AC 07/07 PO 07/28 1401 1427 Labetalol HCl 400 MG Q8HR 06/28 1400 AC 07/07 PO 07/27 1401 1426 Furosemide 100 MG Q20H 06/28 1100 DC 07/06 Sodium Chloride 90 ML IV 07/28 1101 1819 Magnesium 100 ML ASDIR PRN 06/28 0600 AC 07/06 IV 07/28 0601 0451 Magnesium Sulfate 50 ML ASDIR PRN 06/28 0600 AC IV 07/28 0601 Magnesium Sulfate 100 ML ASDIR PRN 06/28 0600 A C IV 07/28 0601 Clonidine HCl 0.2 MG Q7D 06/27 1245 CKD 07/04 TRANSDERM 07/27 1246 1243 Amlodipine Besylate 5 MG Q12HR 06/27 1015 AC PO 07/27 2101 0926 Aspirin 81 MG DAILY 06/27 0900 AC 07/07 FEED-TUBE 07/27 0901 0928 Atorvastatin Calcium 40 MG DAILY 06/27 0900 AC 07/07 FEED-TUBE 07/27 0901 0926 Albuterol/Ipratropium 3 ML RTQ6H 06/25 1400 AC 07/07 INH 07/25 1401 1549 Dextrose/Water 25 ML ASDIR PRN 06/21 2100 AC IV 07/21 210 1243 Glucagon 1 MG ASDIR PRN 06/21 2100 AC IM 07/21 2100 Insulin Human Lispro See Dose ASDIR 06/21 2100 AC 06/24 Insts (4) SUBQ 07/21 210 0357 Sterile Water 1 ML ASDIR PRN 06/21 2100 AC IM 07/21 2100 Famotidine 20 MG DAILY 06/20 0900 AC 07/07 PO 07/20 0901 0925 Heparin Sodium 5,000 UNIT Q12HR 06/19 2100 AC 0 07/07 (Porcine) SUBQ 07/19 2100 0928 Esmolol HCl 250 ML TITRATE 06/19 09 CKD 07/04 IV 07/19 0901 1914 Dose Instructions: (1)Miscellaneous Information: BACTEREMIA (2)Perflutren Lipid Microsphere: DIRECTED (3)Sodium Chloride: DIRECTED (4)Insulin Human Lispro: LOW DOSE SCALE Recent Impressions-Last 72 Hrs RADIOLOGY - XR ABDOMEN 1 V 07/04 1939 Report Impression - Status: SIGNED Entered: 07/04/20202038 IMPRESSION: Diffuse bowel distention noted throughout the ab domen and pelvis with moderate pneumoperitoneum in the upper abdomen. These findings are unchanged from the prior examination. Impression By: [email or web address] - Kim Morrow MD RADIOLOGY - XR CHEST 1 V 07/05 0537 Report Impression - Status: SIGNED Entered: 07/05/2020 0749 IMPRESSION: Moderate central vascular congestion remains. Delgado zy infiltrate/edema persists in the left upper lobe. Slight overall improved aeration of the lungs however compared to prior day exam. Impression By: [email or web address] Keyon rose MD RADIOLOGY - XR CHEST 1 V 07/06 0400 Report Impression - Status: SIGNED Entered: 07/06/2020 0616 IMPRESSION: Mild worsening in the pulmonary edema. Slight improvement in intraperitoneal free air. Impression By: [email or web address] Keyon Robins RADIOLOGY - XR CHEST 1 V 07/07 0516 Report Impression - Status: SIGNED Entered: 07/07/2020 0632 IMPRESSION: Improving pulmonary edema. Free air the upper abdomen may have slightly wor sened. Impression By: [email or web address] Keyon Robins Last Documented: Result Date Time Pulse Ox 99 07/07 1830 B/P 136/69 07/07 1830 B/P Mean 95 07/07 1830 Pulse 93 07/07 1830 Resp 39 07/07 1830 Temp 37.1 07/07 1600 FiO2 35 07/07 1550 O2 Delivery Ventilator 07/07 0909 O2 Flow Rate 0 07/05 0932 Vital Signs Date Temp Pulse Resp B/P B/P Mean Pulse Ox FiO2 07/06-07/07 36.6-38.8 77-118 22-60 96-159/52-88 70-108 86-100 35 24 hour I O ending at 0700: 07/07 0700 07/06 1900 Intake Total 6722.00 1555.00 Output Total 1500 Balance 5222.00 1555.00 Intake, IV 6722.00 1041.00 Intake, Tube 394 Feeding Intake, Tube 120 Irrigant Output, Urine 1500 PATIENT WEIGHT: Weight (lb): 203 Weight (oz): 0.73 Weight (kg): 92.100 Physical Exam General appearance: altered mental status, chron ically ill appearing ENT: TRACH Cardiovascular: tachycardia Respiratory: ON CPAP 35 % Abdomen: non-tender, soft, no guarding, no rebou nd Skin: dry Diagnosis, Assessment Plan Problem List/A P: 1. Multifocal pneumonia 2. Bacteremia due to Enterobacter species 3. Bacteremia due to Enterococcus 4. Pneumonia due to enterobacter aerogenes Free Text A P: 07-07-20 CVC WAS D/C SOURCE OF BACTEREMIA !!!!!!!!!!! VANCO + CEFPEIME FOR NOW CHECK SENSITIVITIES. IF REPEAT CX ARE + FOR ENTOEROCOCCCI>>>> HUMPHREY A N ECHO Electronically Signed by Faby Blanchard MD on 0 07/07/20 at 1917 RPT #:[id number] END OF REPORT 2020-07-07 16:56:00-00:00 [facility] Vascular Surgery Progress Note REPORT#:[id number] REPORT STATUS: Signed DATE:07/07/20 TIME: 1655 PATIENT: JORGE GOINS UNIT #: [id number] ROOM/BED: [address] : [birth year] AGE: 34 SEX: M ATTEND: Luis M Olmedo MD ADM AUTHOR: Kleber Newby MD * ALL edits or amendments must be made on the el [employer]/computer document * Subjective Chief Complaint: Intubated and sedated at time of examination HPI Patient remains sedated. Patient remains bactere kathryn. Creatinine is elevated today. Patient remains criti leah ill and sedated thus unable to perform review of systems. Bilateral lower extremities well-per fused. Objective General VS/I O Last Documented: Result Date Time Pulse Ox 100 07/07 1550 FiO2 35 07/07 1550 Pulse 83 07/07 1550 Resp 37 07/07 1341 B/P 139/65 07/07 1330 B/P Mean 94 07/07 1330 O2 Delivery Ventilator 07/07 0909 Temp 99.1 07/07 0800 O2 Flow Rate 0 / 0932 24 hour I O ending at 0700: 07/07 0700 07/06 1900 Intake Total 6722.00 1555.00 Output Total 1500 Balance 5222.00 1555.00 Intake, IV 6722.00 1041.00 Intake, Tube 394 Feeding Intake, Tube 120 Irrigant Output, Urine 1500 PATIENT WEIGHT: Weight (lb): 203 Weight (oz): 0.73 Weight (kg): 92.100 Nutrition assessment: The data set between the solid lines has been im ported from the dietitian's assessment. Any exceptions have been noted under Provider comments. BMI Calculated: 28.3 Nutrition related diagnosis: Obese Nutrition diagnosis details: BMI 30-39.9 Nutrition problem: Inadequate oral intake Nutrition etiology: RESPIRATORY STATUS Nutrition signs and symptoms: PT SEDATED ON MECH ANICAL VENT,, NPO, NEED FOR TUBE FEEDS. Nutrition prescription: -RECOMMEND CONTINUE JEVI TY 1.5 TO 20 ML/HR (PROVIDES 720 KCAL, 27 GM PRO, 387 ML FREE WATER, AND 480 ML TOTAL VOLUME) PT RECEIVING ADDITIONAL 1095 KCAL FROM ND OPOFOL @ 41.5 ML/HR RECOMMEND 24 GM HEALTHYSHOT X5/ DAY. FWF 55 ML/HR WITH NO IV F'S. FWF 30 ML Q4H WITH IVF'S. -IF ABLE TO TOLERATE OFF PROPOFOL, RECOMMEND GOAL RATE 50 ML/ HR W/ HEALTHY SHOT [address] TO F/U PER FNS PROTOCOL. Dietitian name: MAYCO Miller, JONNATHANN, LD Assessment completed: 07/06/20 Provider comments on imported dietitian assessme nt: General appearance: sedated HEENT: anicteric Neck: trach Cardiovascular: regular rate, hypertensive despi te multiple blood pressure lowering agents Respiratory: symmetric expansion, mechanically v entilated Abdomen: distended Genitourinary: zuñiga Extremities: palpable radial and dorsalis pedis pulses bilaterally Neuro/RADIOTELEGRAPHIST: intubated and sedated Skin: no flank or back ecchymosis Psychiatry: unable to evaluate Diagnosis, Assessment Plan Free Text A P: 34 year old male with complicated type B dissection in need of extension TEVAR when stable Keep BP less than 120mmhg with heart rate goal o f 60 bpm Extubate when feasible: Patient has now been tra ched, wean from vent as tolerated Will need further TEVAR when stable Vascular surgery will continue to follow closely . Patient now with positive blood cultures . Recommend broad-spectrum antibiotics and ID consultation for further recommendations. Patient is high risk for aortic stent-graft infection. This was discussed with the ICU LAISHA strongly recommend ID consultation. Given the positive bl ood cultures recommend obtaining a new central line as this is a possib le source of the bacteremia. Electronically Signed by Kleber Newby MD on 06/26 08/16 at 1658 RPT #:[id number] END OF REPORT 2020-07-07 15:42:00-00:00 [facility] Prog.Note-Vancomycin REPORT#:[id number] REPORT STATUS: Signed DATE:07/07/20 TIME: 1542 PATIENT: JORGE GOINS UNIT #: [id number] ROOM/BED: [address] : [birth year] AGE: 34 SEX: M ATTEND: Luis M Olmedo MD ADM AUTHOR: Shannan Llamas [facility] * ALL edits or amendments must be made on the el [employer]/computer document * Vancomycin Vancomycin Indication for treatment: Bacteremia Treatment plan: change regimen Additional Comments: DC BY CHETAN HODGES Electronically Signed by Shannan Llamas RPh on at 1542 RPT #:[id number] END OF REPORT 2020-07-07 13:46:00-00:00 [facility] Progress Note REPORT#:[id number] REPORT STATUS: Signed DATE:07/07/20 TIME: 1346 PATIENT: JORGE GOINS UNIT #: [id number] ROOM/BED: [address] : [birth year] AGE: 34 SEX: M ATTEND: Luis M Olmedo MD ADM AUTHOR: Tanya Davila MD * ALL edits or amendments must be made on the el [employer]/computer document * Subjective Chief Complaint: Lethargy and AMS Patient reports: No: complaints. Comments: On sedation. Not following commands when on jong tion vacation and not moving legs at all per nurse Objective General VS: Last Documented: Result Date Time Pulse Ox 100 07/07 1341 Pulse 88 07/07 1341 Resp 37 07/07 1341 B/P 139/65 07/07 1330 B/P Mean 94 07/07 1330 FiO2 35 07/07 1254 O2 Delivery Ventilator 07/07 0909 Temp 99.1 07/07 0800 O2 Flow Rate 0 07/05 0932 PATIENT WEIGHT: Weight (lb): 203 Weight (oz): 0.73 Weight (kg): 92.100 Medications Current Home Medications ALBUTEROL (PROAIR HFA 90 MCG/ACT 8.5 GM) 2 PUFF INH RTQ6H PRN PRN SOB ASPIRIN EC (ECOTRIN) 81 MG PO DAILY CARVEDILOL (COREG) 25 MG PO BID MEALS ACETAMINOPHEN/CODEINE (TYLENOL WITH CODE INE #4 300/60 MG) 1 TAB PO Q6H PRN PRN PAIN ATORVASTATIN (LIPITOR) 20 MG PO BEDTIME LOSARTAN (COZAAR) 100 MG PO DAILY NIFEdipine CC (ADALAT CC) 90 MG PO Q12HR HYDROCHLOROTHIAZIDE (HYDRODIURIL) 25 MG PO DAILY Active Meds + DC'd Last 24 Hrs Furosemide 40 MG BID@0700,1500 IV Vancomycin HCl 1,250 MG 0600,1800 IV Sodium Chloride 250 ML Morphine Sulfate 2 MG ONCE ONE IV (DC) Acetaminophen 650 MG Q4H PRN PRN FEED-TUBE Acetazolamide 250 MG ONCE ONE IV (DC) IV Miscellaneous Supplies 1 EACH Vancomycin HCl 1,000 MG 0200,1000,1800 IV (DC) Sodium Chloride 250 ML Miscellaneous Information BACTEREMIA ASDIR IV Potassium Bicarbonate/Citric Acid 40 MEQ DAILY P O Cefepime HCl 1 GM Q12HR IV Sterile Water 10 ML Losartan Potassium 50 MG DAILY PO Isosorbide Mononitrate 30 MG BID FEED-TUBE Potassium Bicarbonate/Citric Acid 20 MEQ DAILY F EED-TUBE Nicardipine HCl 125 MG TITRATE IV Sodium Chloride 200 ML Potassium Chloride 100 ML ASDIR PRN IV Propofol 100 ML TITRATE IV (CKD) Perflutren Lipid Microsphere DIRECTED ONCE PRN IV (DC) Sodium Chloride DIRECTED ONCE PRN IV (DC) Sodium Chloride 5 ML ONCE PRN IV (DC) Potassium Bicarbonate/Citric Acid 20 MEQ ASDIR P O (CKD) Potassium Chloride 100 ML ASDIR PRN IV Hydralazine HCl 100 MG Q8HR PO Labetalol HCl 400 MG Q8HR PO Furosemide 100 MG Q20H IV (DC) Sodium Chloride 90 ML Magnesium 100 ML ASDIR PRN IV Magnesium Sulfate 50 ML ASDIR PRN IV Magnesium Sulfate 100 ML ASDIR PRN IV Clonidine HCl 0.2 MG Q7D TRANSDERM (CKD) Amlodipine Besylate 5 MG Q12HR PO Aspirin 81 MG DAILY FEED-TUBE Atorvastatin Calcium 40 MG DAILY FEED-TUBE Albuterol/Ipratropium 3 ML RTQ6H INH Dextrose/Water 25 ML ASDIR PRN IV Glucagon 1 MG ASDIR PRN IM Insulin Human Lispro LOW DOSE SCALE ASDIR SUBQ Sterile Water 1 ML ASDIR PRN IM Famotidine 20 MG DAILY PO Heparin Sodium (Porcine) 5,000 UNIT Q12HR SUBQ Esmolol HCl 250 ML TITRATE IV (CKD) Physical Exam General appearance: respiratory support, respons iveness, sedated Diagnosis, Assessment Plan Free Text A P: Assessment 1. Acute encephalopathy - multifactorial - metab olic/hypertensive emergency/ acute stroke 2. Acute ischemic strokes, suspect embolic sourc e, + PFO, b/l lower extremity dopplers negative 3. s/p PEA arrest 06/11/20 4. hypertensive emergency - still requiring akua rdipine drip and antihypertensives being adjusted 5. acute respiratory failure requiring intubatio n 6. complicated type b aortic dissection, in need of extension TEVAR when stable per vascular surgery Plan Heavily sedated so difficult to examine S/p trach and PEG- has NG tube in as well blood pressure control- on cardene continue medical management asa and statin consider PFO closure in future when medically st abilized d/w nurse at [address] [facility] #:[id number] END OF REPORT 2020-07-06 19:47:00-00:00 [facility] Prog.Note-Vancomycin REPORT#:[id number] REPORT STATUS: Signed DATE:07/06/20 TIME: 1946 PATIENT: JORGE GOINS UNIT #: [id number] ROOM/BED: [address] : [birth year] AGE: 34 SEX: M ATTEND: Luis M Olmedo MD ADM AUTHOR: Damir Villafana [facility] * ALL edits or amendments must be made on the [employer] document * Vancomycin Vancomycin Indication for treatment: Bacteremia Weight: Actual weight (kg): 92 Labs: Laboratory Tests: 07/06 07/06 1813 1541 Toxicology Vancomycin Peak (20.0 - 40.0 ug/mL) 25.83 Vancomycin Trough (10 - 20.0 ug/mL) 23.58 H Laboratory Test : 07/06 0317 Chemistry BUN (9 - 20 mg/dL) 30 H Creatinine (0.7 - 1.3 mg/dL) 1.0 Hematology WBC (5.0 - 12.0 x10 3/uL) 8.0 Microbiology: 07/06 1149 STOOL: Clostridioides difficile Toxin Assay - COMP 07/05 1655 BLOOD: Blood Culture - RES 07/04 1524 ENDOTRACH: Respiratory Culture - COMP ENTEROBACTER AEROGENES 07/04 1524 ENDOTRACH: Gram Stain - COMP 07/04 1524 BLOOD: Blood Culture - RES GRAM NEGATIVE YOSI ENTEROCOCCUS SPECIES 07/04 1524 BLOOD: Blood Culture - RES GRAM NEGATIVE YOSI Treatment plan: change regimen Rationale: A/P: * PMH: EVAR * HPI: ROSC, VAP, bacteremia * WBC = wnl * febrile to 102.8 * BCx (+) for GNR and Enterococcus, Sputum (+) f or Enterobacter * AUC = 618, slightly above goal. Half-life = 19 hours. SCr stable near apparent baseline, clearance lower than Crcl woul d indicate, however levels closer than ideal. Peak taken 5 hours after dose given. Will change to 1250 mg q12h and repeat [employer]/VT Date DoT SCr/CrCl Level AUC Dose 1/10 1 1.2/ 104 - - 2000 mg x1 07/06 2 1.0/120+ 618 1000 mg q8h 07/07 3 [employer] @ 2200 - 1250 mg q12h 07/08 4 VT @ 0500 1250 mg q12h Electronically Signed by Damir Villafana [facility] on 05/16 at 1959 RPT #:[id number] END OF REPORT 2020-07-06 19:19:00-00:00 [facility]) Vascular Surgery Progress Note REPORT#:[id number] REPORT STATUS: Signed DATE:07/06/20 TIME: 1918 PATIENT: JORGE GOINS UNIT #: [id number] ROOM/BED: [address] : [birth year] AGE: 34 SEX: M ATTEND: Luis M Olmedo MD ADM AUTHOR: Kleber Newby MD * ALL edits or amendments must be made on the el [employer]/computer document * Subjective Chief Complaint: Intubated and sedated at time of examination HPI no acute events. remains sedated. feet and arms well perfused Objective General VS/I O Last Documented: Result Date Time Pulse Ox 100 07/06 1815 B/P 140/72 07/06 181 B/P Mean 98 07/06 1815 Pulse 104 07/06 1815 Resp 42 07/06 181 FiO2 35 07/06 1509 Temp 99.7 07/06 1200 O2 Delivery Ventilator 07/06 0915 O2 Flow Rate 0 07/05 0932 24 hour I O ending at 0700: 07/06 0700 07/05 1900 Intake Total 2508.00 746.54 Output Total 5200 2600 Balance -2692.00 -1853.46 Intake, IV 1808.00 746.54 Intake, Oral 0 Intake, Tube 300 Feeding Intake, Tube 400 Irrigant Output, Stool 850 800 Output, Urine 4350 1800 Patient 92.1 kg Weight Weight Bed scale Measurement Method PATIENT WEIGHT: Weight (lb): 203 Weight (oz): 0.73 Weight (kg): 92.100 General appearance: alert, awake, oriented HEENT: anicteric Neck: trach Cardiovascular: regular rate, hypertensive despi te multiple blood pressure lowering agents Respiratory: symmetric expansion, mechanically v entilated Abdomen: distended Genitourinary: zuñiga Extremities: palpable radial and dorsalis pedis pulses bilaterally Pulse assess: Other pulse assess: 2+ radial and DP pulses bilaterally Neuro/RADIOTELEGRAPHIST: intubated and sedated Skin: no flank or back ecchymosis Psychiatry: unable to evaluate Diagnosis, Assessment Plan Free Text A P: 34 year old male with complicated type B dissection in need of extension TEVAR when stable Keep BP less than 120mmhg with heart rate goal o f 60 bpm Extubate when feasible: Patient has now been tra ched, wean from vent as tolerated Will need further TEVAR when stable Vascular surgery will continue to follow closely . Patient now with positive blood cultures . Recommend broad-spectrum antibiotics and ID consultation for further recommendations. Patient is high risk for aortic stent-graft infection. This was discussed with the ICU nurse. Electronically Signed by Kleber Newby MD on 06/26 07/16 at 1920 RPT #:[id number] END OF REPORT 2020-07-06 19:10:00-00:00 [facility] Progress Note REPORT#:[id number] REPORT STATUS: Signed DATE:07/06/20 TIME: 1909 PATIENT: JORGE GOINS UNIT #: [id number] ROOM/BED: [address] : [birth year] AGE: 34 SEX: M ATTEND: Luis M Olmedo MD ADM AUTHOR: Giancarlo Phan MD * ALL edits or amendments must be made on the el [employer]/computer document * Subjective Free Text Subj Notes Free Text Subj Notes: No changes Objective Physical Exam Head/Eyes: atraumatic, normocephalic ENT: moist mucosal membranes, normal nose Neck: non-tender, supple/no meningismus, traches otomy prsent Cardiovascular: CV assessment: regular rate and rhythm, no murm ur Respiratory: no distress, coarse breathsounds, m echanically ventialted Abdomen: soft, non-tender Upper extremity: UE assessment: normal capillary refill, normal temperature Lower extremity: LE assessment: normal capillary refill, normal temperature, no edema Musculoskeletal: normal inspection Neuro/RADIOTELEGRAPHIST: vented via trachesotomy, not followin g commands Diagnosis, Assessment Plan Free Text DxA P Notes Free Text DxA P Notes: 1. Hypertensive urgency/emergency - presented with severely elevated BP requiring 2 IV infusions, subsequently suffered PEA cardiac arrest - BP control improving - cont hydralazine 100mg Q8H, labetalol 400mg Q 8H, clonidine patch - norvasc and ISMN 30mg BID - increase losartan to 50mg BID - wean cardene, off esmolol 2. Cardiac arrest - PEA in etiology, pt became hypothermic and sub sequently bradycardic 3. Type B aortic dissection s/p EVAR - has residual descending aortic dissect ion extending into iliacs. No evidence of rupture on CTA. Reviewed by vascular surgery - appreciate assitance - optimal BP Control as above 4. Acute on chronic systolic heart failure - likely hypertensive heart disease due to long standing elevated BP - warm and well perfused on examination - cont lasix gtt 5. Shock - resolved 6. JENNIFER on CKD stage 3 - improved - likely secondary to fluctuation in BP - nephrology following, appreciate recommendatio ns - monitor UOP 7. Acute hypoxic respiratory failure - wean from ventilator as tolerated, now has tra cheostomy- per ICU team 8. Stroke: - CT head and MRI with evidence of prior CVA - TTE with possible PFO - mo nitor for neurological improvement then will discuss with family potential PFO closure Will follow. Please call if questions. [facility] Electronically Signed by Giancarlo Phan MD on 06/26 07/16 at 1912 RPT #:[id number] END OF REPORT 2020-07-06 13:35:00-00:[address] [facility] ([facility]) Nephrology Progress Note REPORT#:[id number] REPORT STATUS: Signed DATE:07/06/20 TIME: 1335 PATIENT: JORGE GOINS UNIT #: [id number] ROOM/BED: [address] : [birth year] AGE: 34 SEX: M ATTEND: Luis M Olmedo MD ADM AUTHOR: Ceferino De La Garza MD * ALL edits or amendments must be made on the [employer] document * Subjective Comments: Seen at bedside, no acute changes. Objective General VS/I O: Vital Signs: Date Time Temp Pulse Resp B/P B/P Pulse O2 O2 F low FiO2 Mean Ox Delivery Rate 07/06 1230 95 31 130/59 85 98 07/06 1215 94 33 120/56 81 99 07/06 1200 37.6 07/06 1200 96 32 130/60 86 99 07/06 1145 93 30 127/57 82 98 07/06 1130 93 42 128/59 85 98 07/06 1115 93 40 127/62 83 99 07/06 1045 91 47 128/71 92 99 07/06 1030 87 17 108/57 76 99 07/06 1015 90 23 107/54 74 99 07/06 1000 91 20 104/55 78 99 07/06 0945 90 25 101/54 76 99 07/06 0930 85 32 114/54 79 99 07/06 0915 83 15 119/58 82 100 07/06 0915 100 Ventilator 40 07/06 0915 84 100 40 07/06 0900 82 21 114/53 78 100 07/06 0845 83 17 117/57 80 100 07/06 0830 83 25 111/53 76 100 07/06 0815 83 17 107/54 79 100 07/06 0800 38.9 07/06 0800 84 16 123/59 85 100 07/06 0745 86 21 120/58 83 100 / 0740 Ventilator 07/06 0730 86 26 115/55 79 100 / 0715 87 21 120/59 84 100 / 0700 87 25 117/58 83 100 / 0645 87 23 125/58 84 100 07/06 0630 90 24 132/63 90 100 07/06 0615 88 17 139/66 95 100 / 0600 90 21 137/64 92 100 / 0545 91 20 136/64 92 100 / 0530 92 25 140/66 95 100 / 0515 93 25 148/69 99 100 07/06 0500 35 07/06 0500 93 23 149/71 102 100 07/06 0445 95 21 150/71 102 100 07/06 0430 94 23 141/67 96 100 07/06 0419 95 100 35 07/06 0415 95 23 143/67 96 100 07/06 0400 39.3 01/11 0400 96 26 147/68 99 100 01/11 0345 95 26 156/73 105 100 01/11 0330 94 29 147/70 101 100 01/11 0315 93 25 146/71 102 100 01/11 0300 92 28 140/71 100 100 01/11 0245 92 25 137/69 97 100 01/11 0230 92 23 138/69 97 100 01/11 0215 131/65 91 01/11 0200 90 14 137/66 95 100 01/11 0200 91 100 35 01/11 0145 90 13 132/66 92 100 01/11 0130 90 10 132/66 93 100 01/11 0115 89 4 129/66 90 100 01/11 0100 88 4 128/65 91 100 01/11 0045 88 5 127/63 89 100 01/11 0030 89 20 122/60 85 100 01/11 0015 88 11 123/62 87 100 01/11 0000 37.2 01/11 0000 87 14 119/60 83 100 01/10 2345 87 13 119/59 83 100 01/10 2330 86 26 114/56 77 100 01/10 2315 86 18 117/56 80 100 01/10 2300 87 24 115/56 78 99 01/10 2245 86 26 117/59 84 100 01/10 2230 87 30 118/57 80 100 01/10 2215 88 32 119/60 82 100 01/10 2211 100 Ventilator 35 01/10 2211 88 100 35 01/10 2200 91 44 130/63 88 100 01/10 2145 91 30 123/61 85 100 01/10 2131 89 52 148/102 117 100 01/10 2115 86 29 157/75 106 100 01/10 2100 86 24 152/74 106 100 01/10 5 84 22 147/70 101 100 01/10 2029 83 17 147/70 101 100 01/10 2014 84 23 146/68 98 100 01/10 1999 37.2 01/10 1999 Ventilator 35 01/10 1999 80 19 147/70 100 100 01/10 1945 80 7 151/72 103 100 01/10 1930 81 11 138/62 92 100 01/10 1915 80 12 147/70 100 100 01/10 1900 80 18 146/71 100 100 01/10 1845 80 20 143/72 98 100 01/10 1844 80 16 137/72 98 100 01/10 1800 79 23 100 / 1732 78 100 40 07/05 1700 77 21 100 01/ 1659 77 22 130/67 92 100 01/10 1630 76 23 138/63 91 100 01/10 1615 78 24 131/60 86 100 01/10 1600 78 21 122/59 87 100 01/10 1600 37.0 100 Ventilator 40 07/05 1545 77 22 144/68 97 100 01/10 1530 76 23 135/65 93 100 /10 1515 77 20 126/61 86 100 01/10 1500 76 22 130/59 86 100 01/10 1445 75 17 139/67 92 100 01/10 1433 77 22 100 01/10 1430 77 20 138/66 94 100 /10 1415 78 21 145/71 99 100 /10 1400 79 21 151/73 104 100 / 1354 78 20 100 01/10 1345 79 22 139/71 98 100 24 hour I O ending at 0700: 07/06 0700 07/05 1900 Intake Total 2508.00 746.54 Output Total 5200 2600 Balance -2692.00 -1853.46 Intake, IV 1808.00 746.54 Intake, Oral 0 Intake, Tube 300 Feeding Intake, Tube 400 Irrigant Output, Stool 850 800 Output, Urine 4350 1800 Patient 92.1 kg Weight Weight Bed scale Measurement Method Medications Active Meds + DC'd Last 24 Hrs Acetazolamide 250 MG ONCE ONE IV IV Miscellaneous Supplies 1 EACH Vancomycin HCl 1,000 MG 0200,1000,1800 IV Sodium Chloride 250 ML Vancomycin HCl 2,000 MG NOW ONE IV (DC) Sodium Chloride 500 ML Miscellaneous Information 1 EACH ASDIR IV (CKD) Potassium Bicarbonate/Citric Acid 40 MEQ DAILY P O Vancomycin HCl 1,000 MG Q8H IV (DC) Sodium Chloride 250 ML Cefepime HCl 1 GM Q12HR IV Sterile Water 10 ML Losartan Potassium 50 MG DAILY PO Isosorbide Mononitrate 30 MG BID FEED-TUBE Potassium Bicarbonate/Citric Acid 20 MEQ DAILY F EED-TUBE Nicardipine HCl 125 MG TITRATE IV Sodium Chloride 200 ML Potassium Chloride 100 ML ASDIR PRN IV Propofol 100 ML TITRATE IV (CKD) Perflutren Lipid Microsphere DIRECTED ONCE PRN IV Sodium Chloride DIRECTED ONCE PRN IV Sodium Chloride 5 ML ONCE PRN IV Potassium Bicarbonate/Citric Acid 20 MEQ ASDIR P O (CKD) Potassium Chloride 100 ML ASDIR PRN IV Hydralazine HCl 100 MG Q8HR PO Labetalol HCl 400 MG Q8HR PO Furosemide 100 MG Q20H IV Sodium Chloride 90 ML Magnesium 100 ML ASDIR PRN IV Magnesium Sulfate 50 ML ASDIR PRN IV Magnesium Sulfate 100 ML ASDIR PRN IV Clonidine HCl 0.2 MG Q7D TRANSDERM (CKD) Amlodipine Besylate 5 MG Q12HR PO Aspirin 81 MG DAILY FEED-TUBE Atorvastatin Calcium 40 MG DAILY FEED-TUBE Albuterol/Ipratropium 3 ML RTQ6H INH Dextrose/Water 25 ML ASDIR PRN IV Glucagon 1 MG ASDIR PRN IM Insulin Human Lispro LOW DOSE SCALE ASDIR SUBQ Sterile Water 1 ML ASDIR PRN IM Famotidine 20 MG DAILY PO Heparin Sodium (Porcine) 5,000 UNIT Q12HR SUBQ Esmolol HCl 250 ML TITRATE IV (CKD) Physical Exam Head/eyes: normal conjunctiva/sclera Neck: trach in place Respiratory: symmetric expansion Genitourinary: zuñiga, urine (appears pink) Extremities: pedal edema improved Musculoskeletal: normal inspection Hemodialysis access: Type: vascath Psychiatry: unable to evaluate Results Findings/Data: Laboratory Tests 07/06 0438 Blood Gas Puncture Site R Radial ABG pH (7.35 - 7.45 pH units) 7.52 *H ABG pCO2 (35 - 48 mmHg) 35.8 ABG pO2 (83 - 108 mmHg) 108.6 H ABG PO2/FiO2 Ratio (mm/Hg) 310.28 ABG HCO3 (21 - 28 mmol/L) 29.0 H ABG Total CO2 (22 - 29 mmol/L) 30.1 H ABG O2 Sat Calc/Denise (94 - 98 %) 98.7 H ABG Base Excess (-2 - 3 mmol/L) 5.9 H Emmanuel Test N/A Respiration Rate (12 - 20 /MIN) 14 O2 Delivery Device Adult Vent Vent Mode SIMV FiO2 (%) 35 Pressure Support (cmH2O) 10 Instrument (Specimen Descript) Arterial Laboratory Tests 07/06 07/06 07/06 07/05 07/05 1149 0908 0317 2059 1606 Chemistry Sodium (137 - 145 mmol/L) 141 Potassium (3.4 - 5.0 mmol/L) 3.4 3.2 L Chloride (98 - 107 mmol/L) 103 Carbon Dioxide (22 - 30 mmol/L) 32 H BUN (9 - 20 mg/dL) 30 H Creatinine (0.7 - 1.3 mg/dL) 1.0 Glomerular Filtr Rate (>60) 111 Glucose (74 - 106 mg/dL) 84 POC Glucose (74 - 106 MG/DL) 95 80 72 L Calcium (8.4 - 10.2 mg/dL) 8.7 Magnesium (1.6 - 2.3 mg/dL) 2.1 2.0 Total Bilirubin (0.2 - 1.3 mg/dL) 1.4 H Conjugated Bilirubin (0 - 0.3 mg/dL) 0 Unconjugated Bilirubin (0 - 1.1 mg/dL) 0.4 AST (15 - 46 U/L) 48 H ALT (0 - 34 U/L) 49 H Total Alk Phosphatase (38 - 126 U/L) 189 H Total Protein (6.3 - 8.2 g/dL) 6.8 Albumin (3.5 - 5.0 g/dL) 3.3 L Laboratory Tests 07/06 0317 Hematology WBC (5.0 - 12.0 x10 3/uL) 8.0 RBC (4.70 - 6.10 x10 6/uL) 3.39 L Hgb (14.0 - 18.0 g/dL) 9.8 L Hct (37.0 - 49.0 %) 31.5 L MCV (80 - 94 fL) 93 MCH (27 - 31 pg) 28.9 MCHC (33 - 37 g/dL) 31.1 L RDW (11.5 - 15.5 %) 15.4 Plt Count (130 - 400 x10 3/uL) 317 MPV (9.4 - 16.4 fL) 10.8 Neut % (Auto) (43 - 65 %) 82.4 H Lymph % (Auto) (20.5 - 45.5 %) 6.9 L Citrus % (Auto) (5.5 - 11.7 %) 7.4 Eos % (Auto) (0.9 - 2.9 %) 2.7 Baso % (Auto) (0.2 - 1.0 %) 0.2 Neut # (Auto) (2.2 - 4.8 x10 3/uL) 6.61 H Lymph # (Auto) (1.3 - 2.9 x10 3/uL) 0.55 L Citrus # (Auto) (0.3 - 0.8 x10 3/uL) 0.59 Eos # (Auto) (0.0 - 0.2 x10 3/uL) 0.22 H Baso # (Auto) (0.0 - 0.1 x10 3/uL) 0.02 Immature Gran % (0.0 - 2.0 %) 0.4 Nucleated RBC % (0 - 1.0 %) 0.0 Radiology data: Recent Impressions: RADIOLOGY - XR CHEST 1 V 07/06 0400 Report Impression - Status: SIGNED Entered: 07/06/2020 0616 IMPRESSION: Mild worsening in the pulmonary edema. Slight improvement in intraperitoneal free air. Impression By: [email or web address] [place] Diagnosis, Assessment Plan Free Text A P: JENNIFER hypotension AAA lactic acidosis severe metabolic acidosis Cr stable good uop in zuñiga continue furosemide as still has some volume ove rload -reduce to 5 mg/h and likely change to pushes tomorrow. Diamox for metabolic alkalosis. monitor vancomycin levels will monitor at 1352 RPT #:[id number] END OF REPORT 2020-07-06 12:43:00-00:[address] [facility] ([facility]) Neurology Progress Note REPORT#:[id number] REPORT STATUS: Signed DATE:07/06/20 TIME: 1243 PATIENT: JORGE GOINS UNIT #: [id number] ROOM/BED: [address] : [birth year] AGE: 34 SEX: M ATTEND: Luis M Olmedo MD ADM AUTHOR: Tanya Davila MD * ALL edits or amendments must be made on the el [employer]/computer document * Subjective Chief Complaint: Lethargy and AMS Patient reports: No: complaints. Comments: His sedation was increased as he was having incr eased resp and heart rate per nursing. Objective General VS: Last Documented: Result Date Time Pulse Ox 98 07/06 1230 B/P 130/59 01/11 1230 B/P Mean 85 07/06 1230 Pulse 95 07/06 1230 Resp 31 07/06 1230 Temp 99.7 07/06 1200 FiO2 40 07/06 0915 O2 Delivery Ventilator 07/06 0915 O2 Flow Rate 0 07/05 0932 PATIENT WEIGHT: Weight (lb): 203 Weight (oz): 0.73 Weight (kg): 92.100 Medications Current Home Medications ALBUTEROL (PROAIR HFA 90 MCG/ACT 8.5 GM) 2 PUFF INH RTQ6H PRN PRN SOB ASPIRIN EC (ECOTRIN) 81 MG PO DAILY CARVEDILOL (COREG) 25 MG PO BID MEALS ACETAMINOPHEN/CODEINE (TYLENOL WITH CODE INE #4 300/60 MG) 1 TAB PO Q6H PRN PRN PAIN ATORVASTATIN (LIPITOR) 20 MG PO BEDTIME LOSARTAN (COZAAR) 100 MG PO DAILY NIFEdipine CC (ADALAT CC) 90 MG PO Q12HR HYDROCHLOROTHIAZIDE (HYDRODIURIL) 25 MG PO DAILY Active Meds + DC'd Last 24 Hrs Acetazolamide 250 MG ONCE ONE IV IV Miscellaneous Supplies 1 EACH Vancomycin HCl 1,000 MG 0200,1000,1800 IV Sodium Chloride 250 ML Vancomycin HCl 2,000 MG NOW ONE IV (DC) Sodium Chloride 500 ML Miscellaneous Information 1 EACH ASDIR IV (CKD) Potassium Bicarbonate/Citric Acid 40 MEQ DAILY P O Vancomycin HCl 1,000 MG Q8H IV (DC) Sodium Chloride 250 ML Cefepime HCl 1 GM Q12HR IV Sterile Water 10 ML Losartan Potassium 50 MG DAILY PO Isosorbide Mononitrate 30 MG BID FEED-TUBE Potassium Bicarbonate/Citric Acid 20 MEQ DAILY F EED-TUBE Nicardipine HCl 125 MG TITRATE IV Sodium Chloride 200 ML Potassium Chloride 100 ML ASDIR PRN IV Propofol 100 ML TITRATE IV (CKD) Perflutren Lipid Microsphere DIRECTED ONCE PRN IV Sodium Chloride DIRECTED ONCE PRN IV Sodium Chloride 5 ML ONCE PRN IV Potassium Bicarbonate/Citric Acid 20 MEQ ASDIR P O (CKD) Potassium Chloride 100 ML ASDIR PRN IV Hydralazine HCl 100 MG Q8HR PO Labetalol HCl 400 MG Q8HR PO Furosemide 100 MG Q20H IV Sodium Chloride 90 ML Magnesium 100 ML ASDIR PRN IV Magnesium Sulfate 50 ML ASDIR PRN IV Magnesium Sulfate 100 ML ASDIR PRN IV Clonidine HCl 0.2 MG Q7D TRANSDERM (CKD) Amlodipine Besylate 5 MG Q12HR PO Aspirin 81 MG DAILY FEED-TUBE Atorvastatin Calcium 40 MG DAILY FEED-TUBE Albuterol/Ipratropium 3 ML RTQ6H INH Dextrose/Water 25 ML ASDIR PRN IV Glucagon 1 MG ASDIR PRN IM Insulin Human Lispro LOW DOSE SCALE ASDIR SUBQ Sterile Water 1 ML ASDIR PRN IM Famotidine 20 MG DAILY PO Heparin Sodium (Porcine) 5,000 UNIT Q12HR SUBQ Esmolol HCl 250 ML TITRATE IV (CKD) Physical Exam General appearance: respiratory support, respons iveness, sedated Diagnosis, Assessment Plan Free Text A P: Assessment 1. Acute encephalopathy - multifactorial - metab olic/hypertensive emergency/ acute stroke 2. Acute ischemic strokes, suspect embolic sourc e, + PFO, b/l lower extremity dopplers negative 3. s/p PEA arrest 06/11/20 4. hypertensive emergency - still requiring akua rdipine drip and antihypertensives being adjusted 5. acute respiratory failure requiring intubatio n 6. complicated type b aortic dissection, in need of extension TEVAR when stable per vascular surgery Plan Heavily sedated so difficult to examine blood pressure control- on cardene continue medical management asa and statin consider PFO closure in future when medically st abilized d/w nurse at 1246 RPT #:[id number] END OF REPORT 2020-07-05 20:17:00-00:[address] [facility] ([facility]) Nephrology Progress Note REPORT#:[id number] REPORT STATUS: Signed DATE:07/05/20 TIME: 2016 PATIENT: JORGE GOINS UNIT #: [id number] ROOM/BED: [address] : [birth year] AGE: 34 SEX: M ATTEND: Luis M Olmedo MD ADM AUTHOR: Ceferino De La Garza MD * ALL edits or amendments must be made on the el [employer]/computer document * Subjective Comments: no acute changes Objective General VS/I O: Vital Signs: Date Time Temp Pulse Resp B/P B/P Pulse O2 O2 F low FiO2 Mean Ox Delivery Rate 07/05 1999 80 19 147/70 100 100 01/10 1945 80 7 151/72 103 100 01/10 1930 81 11 138/62 92 100 01/10 1915 80 12 147/70 100 100 01/10 1900 80 18 146/71 100 100 01/10 1845 80 20 143/72 98 100 01/10 1844 80 16 137/72 98 100 01/10 1800 79 23 100 01/10 1732 78 100 40 01/10 1700 77 21 100 01/10 1659 77 22 130/67 92 100 01/10 1630 76 23 138/63 91 100 01/10 1615 78 24 131/60 86 100 01/10 1600 78 21 122/59 87 100 01/10 1600 37.0 100 Ventilator 40 01/10 1545 77 22 144/68 97 100 01/10 1530 76 23 135/65 93 100 01/10 1515 77 20 126/61 86 100 01/10 1500 76 22 130/59 86 100 01/10 1445 75 17 139/67 92 100 01/10 1433 77 22 100 01/10 1430 77 20 138/66 94 100 01/10 1415 78 21 145/71 99 100 01/10 1400 79 21 151/73 104 100 01/10 1354 78 20 100 01/10 1345 79 22 139/71 98 100 01/10 1330 78 21 143/74 102 100 01/10 1315 79 19 137/74 100 100 01/10 1300 79 17 124/66 89 100 01/10 1245 78 16 126/65 88 100 01/10 1232 81 100 40 01/10 1230 81 21 129/68 92 100 01/10 1229 36.7 100 Ventilator 50 01/10 1215 80 19 138/68 96 100 01/10 1200 79 20 142/69 96 100 01/10 1145 78 19 138/70 97 100 01/10 1130 79 20 133/65 93 100 01/10 1115 77 16 113/66 83 100 01/10 1100 77 17 126/64 90 100 01/10 1045 77 16 121/64 81 100 01/10 1030 77 14 121/61 82 100 01/10 1015 80 19 127/59 85 100 01/10 1000 80 18 128/68 91 100 01/10 0945 80 20 132/70 95 100 01/10 0941 79 17 100 01/10 0932 100 Ventilator 0 60 01/10 0932 78 100 60 01/10 0930 77 19 127/66 89 100 01/10 0923 79 18 100 01/10 0915 80 23 134/68 95 100 01/10 0900 79 19 132/71 95 100 01/10 0845 79 25 144/73 102 100 01/10 0830 80 24 147/80 108 100 01/10 0822 79 30 100 01/10 0815 80 42 141/78 104 100 01/10 0801 78 34 113/68 73 100 01/10 0800 Ventilator 30 01/10 0800 37.3 100 Ventilator 30 01/10 0800 79 49 100 01/10 0745 75 25 138/73 101 100 01/10 0730 75 25 154/81 111 100 01/10 0715 76 26 147/72 102 100 01/10 0700 77 26 160/81 111 100 01/10 0645 78 25 154/87 113 100 01/10 0630 79 37 164/79 110 100 01/10 0615 80 34 160/82 113 100 01/10 0600 83 45 162/93 121 100 01/10 0545 78 25 147/74 104 100 01/10 0530 78 30 143/74 100 100 01/10 0515 78 27 134/69 94 99 01/10 0500 79 35 141/72 96 100 01/10 0445 78 29 142/68 98 100 01/10 0430 78 24 137/66 94 100 01/10 0415 78 27 141/67 96 100 01/10 0400 36.9 Ventilator 30 01/10 0400 78 32 138/68 93 100 01/10 0345 78 25 133/61 88 100 01/10 0315 79 25 132/71 93 99 01/10 0300 79 24 129/71 93 99 01/10 0245 77 31 129/66 91 100 01/10 0230 78 28 132/66 91 100 01/10 0215 77 25 128/68 89 100 01/10 0200 77 25 121/66 88 100 01/10 0145 77 26 122/65 86 100 01/10 0130 76 25 123/66 88 100 01/10 0115 77 26 114/66 85 100 01/10 0100 76 28 103/68 81 100 01/10 0045 76 29 123/61 85 100 01/10 0030 75 24 120/61 84 100 07/05 0015 76 27 119/63 87 100 07/05 0000 36.8 Ventilator 30 07/05 0000 76 29 123/59 83 100 07/04 2345 75 27 122/60 85 100 07/04 2330 75 22 121/62 84 100 07/04 2315 75 33 128/66 88 100 07/04 2300 75 32 126/64 88 100 07/04 2245 76 29 131/65 91 100 07/04 2230 75 28 127/65 90 100 07/04 2225 30 07/04 2225 100 Ventilator 30 07/04 2215 76 24 126/61 85 100 07/04 2200 77 26 134/64 89 100 07/04 2145 79 25 123/61 85 100 07/04 2130 77 28 127/65 88 100 07/04 2115 78 32 129/67 90 100 07/04 2100 79 19 122/59 82 100 07/04 2045 77 25 122/57 82 100 07/04 2030 77 24 125/58 81 100 24 hour I O ending at 0700: 07/05 0700 07/04 1900 Intake Total 1650.00 2434.00 Output Total 4000 2500 Balance -2350.00 -66.00 Intake, Free 90 Water Intake, IV 1320.00 2434.00 Intake, Other 180 Intake, Tube 60 Feeding Output, Stool 500 Output, Urine 3500 2500 Patient 97.6 kg Weight Weight Bed scale Measurement Method Medications Active Meds + DC'd Last 24 Hrs Vancomycin HCl 1,000 MG 0200,1000,1800 IV Sodium Chloride 250 ML Vancomycin HCl 2,000 MG NOW ONE IV (DC) Sodium Chloride 500 ML Miscellaneous Information 1 EACH ASDIR IV (CKD) Potassium Bicarbonate/Citric Acid 40 MEQ DAILY P O Vancomycin HCl 1,000 MG Q8H IV (DC) Sodium Chloride 250 ML Cefepime HCl 1 GM Q12HR IV Sterile Water 10 ML Losartan Potassium 50 MG DAILY PO Isosorbide Mononitrate 30 MG BID FEED-TUBE Potassium Bicarbonate/Citric Acid 20 MEQ DAILY F EED-TUBE Nicardipine HCl 125 MG TITRATE IV Sodium Chloride 200 ML Potassium Chloride 100 ML ASDIR PRN IV Propofol 100 ML TITRATE IV (CKD) Perflutren Lipid Microsphere DIRECTED ONCE PRN IV Sodium Chloride DIRECTED ONCE PRN IV Sodium Chloride 5 ML ONCE PRN IV Potassium Bicarbonate/Citric Acid 20 MEQ ASDIR P O (CKD) Potassium Chloride 100 ML ASDIR PRN IV Hydralazine HCl 100 MG Q8HR PO Labetalol HCl 400 MG Q8HR PO Furosemide 100 MG Q20H IV Sodium Chloride 90 ML Magnesium 100 ML ASDIR PRN IV Magnesium Sulfate 50 ML ASDIR PRN IV Magnesium Sulfate 100 ML ASDIR PRN IV Clonidine HCl 0.2 MG Q7D TRANSDERM (CKD) Amlodipine Besylate 5 MG Q12HR PO Aspirin 81 MG DAILY FEED-TUBE Atorvastatin Calcium 40 MG DAILY FEED-TUBE Albuterol/Ipratropium 3 ML RTQ6H INH Dextrose/Water 25 ML ASDIR PRN IV Glucagon 1 MG ASDIR PRN IM Insulin Human Lispro LOW DOSE SCALE ASDIR SUBQ Sterile Water 1 ML ASDIR PRN IM Famotidine 20 MG DAILY PO Heparin Sodium (Porcine) 5,000 UNIT Q12HR SUBQ Esmolol HCl 250 ML TITRATE IV (CKD) Physical Exam General appearance: altered mental status Head/eyes: normal conjunctiva/sclera Neck: trach in place Respiratory: symmetric expansion Genitourinary: zuñiga, urine (appears pink) Extremities: pedal edema improved Musculoskeletal: normal inspection Neuro/RADIOTELEGRAPHIST: SEDATED Hemodialysis access: Type: vascath Psychiatry: unable to evaluate Results Findings/Data: Laboratory Tests 07/05 0520 Blood Gas Puncture Site L Radial ABG pH (7.35 - 7.45 pH units) 7.49 H ABG pCO2 (35 - 48 mmHg) 36.7 ABG pO2 (83 - 108 mmHg) 124.3 H ABG PO2/FiO2 Ratio (mm/Hg) 414.33 ABG HCO3 (21 - 28 mmol/L) 28.2 H ABG Total CO2 (22 - 29 mmol/L) 27.6 ABG O2 Sat Calc/Denise (94 - 98 %) 99.1 H ABG Base Excess (-2 - 3 mmol/L) 4.7 H Emmanuel Test Positive Sodium (138 - 146 mmol/L) 139 Potassium (3.5 - 4.5 mmol/L) 3.6 Ionized Calcium (1.15 - 1.33 MMOL/L) 1.14 L Respiration Rate (12 - 20 /MIN) 12 O2 Delivery Device Adult Vent Vent Mode SIMV FiO2 (%) 30 Pressure Support (cmH2O) 10 Instrument (Specimen Descript) Arterial Laboratory Tests 07/05 07/05 07/05 07/05 07/05 1606 1137 0750 0520 0217 Chemistry Sodium (137 - 145 mmol/L) 141 Potassium (3.4 - 5.0 mmol/L) 3.5 3.2 L Chloride (98 - 107 mmol/L) 100 Carbon Dioxide (22 - 30 mmol/L) 34 H BUN (9 - 20 mg/dL) 28 H Creatinine (0.7 - 1.3 mg/dL) 1.2 Glomerular Filtr Rate (>60) 90 Glucose (74 - 106 mg/dL) 91 POC Glucose (74 - 106 MG/DL) 72 L 73 L 95 Calcium (8.4 - 10.2 mg/dL) 9.1 Magnesium (1.6 - 2.3 mg/dL) 2.1 2.3 Triglycerides (mg/dL) 186 07/05 0013 Chemistry POC Glucose (74 - 106 MG/DL) 82 Laboratory Tests 07/05 0217 Hematology WBC (5.0 - 12.0 x10 3/uL) 7.3 RBC (4.70 - 6.10 x10 6/uL) 3.57 L Hgb (14.0 - 18.0 g/dL) 10.1 L Hct (37.0 - 49.0 %) 33.3 L MCV (80 - 94 fL) 93 MCH (27 - 31 pg) 28.3 MCHC (33 - 37 g/dL) 30.3 L RDW (11.5 - 15.5 %) 15.3 Plt Count (130 - 400 x10 3/uL) 326 MPV (9.4 - 16.4 fL) 10.5 Neut % (Auto) (43 - 65 %) 82.7 H Lymph % (Auto) (20.5 - 45.5 %) 6.7 L Citrus % (Auto) (5.5 - 11.7 %) 8.3 Eos % (Auto) (0.9 - 2.9 %) 1.7 Baso % (Auto) (0.2 - 1.0 %) 0.3 Neut # (Auto) (2.2 - 4.8 x10 3/uL) 6.01 H Lymph # (Auto) (1.3 - 2.9 x10 3/uL) 0.49 L Citrus # (Auto) (0.3 - 0.8 x10 3/uL) 0.60 Eos # (Auto) (0.0 - 0.2 x10 3/uL) 0.12 Baso # (Auto) (0.0 - 0.1 x10 3/uL) 0.02 Immature Gran % (0.0 - 2.0 %) 0.3 Nucleated RBC % (0 - 1.0 %) 0.0 Radiology data: Recent Impressions: RADIOLOGY - XR CHEST 1 V 07/05 0537 Report Impression - Status: SIGNED Entered: 07/05/2020 0749 IMPRESSION: Moderate central vascular congestion remains. Delgado zy infiltrate/edema persists in the left upper lobe. Slight overall improved aeration of the lungs however compared to prior day exam. Impression By: Joselyn rose MD Diagnosis, Assessment Plan Free Text A P: JENNIFER hypotension AAA lactic acidosis severe metabolic acidosis Cr stable good uop in zuñiga continue furosemide as still has some volume ove rload monitor vancomycin levels will monitor at 205 RPT #:[id number] END OF REPORT 2020-07-05 17:18:00-00:00 [facility] Prog.Note-Vancomycin REPORT#:[id number] REPORT STATUS: Signed DATE:07/05/20 TIME: 1718 PATIENT: JORGE GOINS UNIT #: [id number] ROOM/BED: [address] : [birth year] AGE: 34 SEX: M ATTEND: Luis M Olmedo MD ADM AUTHOR: Gertrudis Galdamez [facility] * ALL edits or amendments must be made on the el [employer]/computer document * Vancomycin Vancomycin Goal trough: AUC 400-600 MCG*HR/ML Indication for treatment: BCx + for GPC VS and I/O: Vital Signs Date Temp Pulse Resp B/P B/P Mean Pulse Ox FiO 2 07/02-07/05 36.7-39.2 68-87 8-60 103-174/55-93 73-121 87-100 30-60 72 hours ending at 0700 07/05 0700 07/04 1900 07/04 0700 07/03 19007/02 07 1900 Intake 1650.00 2434.00 2720.00 3028.00 3511.00 Total Output 4000 2500 4100 2000 3350 2450 Total Balance -2350.00 -66.00 -1380.00 1028.00 161.00 -2450 Intake, 90 90 120 90 Free Water Intake, IV 1320.00 2434.00 2350.00 2668.00 3041. 00 Intake, 180 180 180 Other Intake, 60 100 240 200 Tube Feeding Output, 500 300 50 Stool Output, 3500 2500 3800 2000 3300 2450 Urine Patient 97.6 kg 99.6 kg 98.7 kg Weight Weight Bed scale Bed scale Bed scale Measuremen t Method 72 Hour I O Total 07/05 0707/03 07 Intake Total 4084.00 5748.00 3511.00 Output Total 6500 6100 5800 Balance -2416.00 -352.00 -2289.00 Labs: Laboratory Test : 07/05 216 Chemistry BUN (9 - 20 mg/dL) 28 H Creatinine (0.7 - 1.3 mg/dL) 1.2 Hematology WBC (5.0 - 12.0 x10 3/uL) 7.3 Microbiology: 07/05 1654 BLOOD: Blood Culture - RECD 07/04 152 ENDOTRACH: Respiratory Culture - RES GRAM NEGATIVE YOSI 07/04 152 ENDOTRACH: Gram Stain - RES 07/04 152 BLOOD: Blood Culture - RES GRAM NEGATIVE YOSI GRAM POSITIVE COCCI 07/04 152 BLOOD: Blood Culture - RES GRAM NEGATIVE YOSI Treatment plan: consult Rationale: Consulting MD: Dr. Mae Wt: 97.6kg (actual BW) A/P: * Pt is a 34 y/o M admitted to [facility] 06/19/20 with uncontrolled HTN and s/p cardiac arrest * BCx x2 growing GNR and 1/4 bottles positive for GPC; pt's sputum Cx + for GNR * Pharmacy consulted to dose vancomycin for bact eremia, estimated duration x7 days * Will give a loading dose of 2000mg x1 and then start 1000mg q8h based on calculations * [employer] due 07/06/20 @1400 and VT due 07/06/20 @1630 * Renal function has remained stable * Attempted to contact provider to hold vancomyc in at this time given 1/4 bottles + for GPC, but call not returned - will f/u with culture results Date DoT SCr/CrCl Level AUC Dose 07/05 1 1.2/ 104 2gm @ 1800 07/06 2 [employer] @1400 1gm q8h @03,11,17 VT @1630 Electronically Signed by Gertrudis Galdamez [facility] on 07/05 at 1725 RPT #:[id number] END OF REPORT 2020-07-05 16:12:00-00:00 [facility] Vascular Surgery Progress Note REPORT#:[id number] REPORT STATUS: Signed DATE:07/05/20 TIME: 1612 PATIENT: JORGE GOINS UNIT #: [id number] ROOM/BED: [address] : [birth year] AGE: 34 SEX: M ATTEND: Luis M Olmedo MD ADM AUTHOR: Kleber Newby MD * ALL edits or amendments must be made on the [employer]/computer document * Subjective Chief Complaint: Intubated and sedated at time of examination HPI Patient now with positive blood cultures for gra m-negative rods and gram- positive cocci. Patient with indwelling stent grafts in the aorta with positive blood cultures putting the patient at high risk for graft infection. Patient needs IV antibiotics and ID consultation. Patien t withdraws to pain to the upper extremities. Otherwise sedated at the time of examination this cannot perform review of systems. Objective General VS/I O Last Documented: Result Date Time Pulse Ox 100 07/05 1433 Pulse 77 07/05 1433 Resp 22 07/05 1433 B/P 138/66 07/05 1430 B/P Mean 94 07/05 1430 FiO2 40 07/05 1232 O2 Delivery Ventilator 07/05 1229 Temp 98.1 07/05 1229 O2 Flow Rate 0 07/05 0932 24 hour I O ending at 0700: 07/05 0700 07/04 1900 Intake Total 1650.00 2434.00 Output Total 4000 2500 Balance -2350.00 -66.00 Intake, Free 90 Water Intake, IV 1320.00 2434.00 Intake, Other 180 Intake, Tube 60 Feeding Output, Stool 500 Output, Urine 3500 2500 Patient 97.6 kg Weight Weight Bed scale Measurement Method PATIENT WEIGHT: Weight (lb): 215 Weight (oz): 2.74 Weight (kg): 97.600 General appearance: alert, awake, oriented HEENT: anicteric Neck: trach and central line in place Cardiovascular: regular rate, hypertensive despi te multiple blood pressure lowering agents Respiratory: symmetric expansion, mechanically v entilated Abdomen: distended Genitourinary: zuñiga Extremities: palpable radial and dorsalis pedis pulses bilaterally Neuro/RADIOTELEGRAPHIST: intubated and sedated Skin: no flank or back ecchymosis Psychiatry: unable to evaluate Current Medications Medications: Active Meds + DC'd Last 24 Hrs Miscellaneous Information 1 EACH ASDIR IV (CKD) Potassium Bicarbonate/Citric Acid 40 MEQ DAILY PO Cefepime HCl 1 GM Q12HR IV Sterile Water 10 ML Losartan Potassium 50 MG DAILY PO Isosorbide Mononitrate 30 MG BID FEED-TUBE Potassium Bicarbonate/Citric Acid 20 MEQ DAILY F EED-TUBE Nicardipine HCl 125 MG TITRATE IV Sodium Chloride 200 ML Potassium Chloride 100 ML ASDIR PRN IV Propofol 100 ML TITRATE IV (CKD) Perflutren Lipid Microsphere DIRECTED ONCE PRN IV Sodium Chloride DIRECTED ONCE PRN IV Sodium Chloride 5 ML ONCE PRN IV Potassium Bicarbonate/Citric Acid 20 MEQ ASDIR P O (CKD) Potassium Chloride 100 ML ASDIR PRN IV Hydralazine HCl 100 MG Q8HR PO Labetalol HCl 400 MG Q8HR PO Furosemide 100 MG Q20H IV Sodium Chloride 90 ML Magnesium 100 ML ASDIR PRN IV Magnesium Sulfate 50 ML ASDIR PRN IV Magnesium Sulfate 100 ML ASDIR PRN IV Clonidine HCl 0.2 MG Q7D TRANSDERM (CKD) Amlodipine Besylate 5 MG Q12HR PO Aspirin 81 MG DAILY FEED-TUBE Atorvastatin Calcium 40 MG DAILY FEED-TUBE Albuterol/Ipratropium 3 ML RTQ6H INH Dextrose/Water 25 ML ASDIR PRN IV Glucagon 1 MG ASDIR PRN IM Insulin Human Lispro LOW DOSE SCALE ASDIR SUBQ Sterile Water 1 ML ASDIR PRN IM Famotidine 20 MG DAILY PO Heparin Sodium (Porcine) 5,000 UNIT Q12HR SUBQ Esmolol HCl 250 ML TITRATE IV (CKD) Diagnosis, Assessment Plan Free Text A P: 34 year old male with complicated type B dissection in need of extension TEVAR when stable Keep BP less than 120mmhg with heart rate goal o f 60 bpm Extubate when feasible: Patient has now been tra ched, wean from vent as tolerated Will need further TEVAR when stable Vascular surgery will continue to follow closely . Patient now with positive blood cultures . Recommend broad-spectrum antibiotics and ID consultation for further recommendations. Patient is high risk for aortic stent-graft infection. This was discussed with the ICU nurse. Electronically Signed by Kleber Newby MD on 06/26 at 1615 RPT #:[id number] END OF REPORT 2020-07-05 13:57:00-00:[address] [facility] ([facility] Neurology Progress Note REPORT#:[id number] REPORT STATUS: Signed DATE:07/05/20 TIME: 1357 PATIENT: JORGE GOINS UNIT #: [id number] ROOM/BED: [address] : [birth year] AGE: 34 SEX: M ATTEND: Luis M Olmedo MD ADM AUTHOR: Tanya Davila MD * ALL edits or amendments must be made on the [employer] document * Subjective Chief Complaint: Lethargy and AMS Patient reports: No: complaints. Comments: OPens his eyes and looks at me and smiles when I call out his name. Does not move any extremities and nods his head "no" when I ask him to. Appears to attempt to stick out his tongue to command Objective General VS: Last Documented: Result Date Time Pulse Ox 100 07/05 1354 Pulse 78 07/05 1354 Resp 20 07/05 1354 B/P 139/71 07/05 1345 B/P Mean 98 07/05 1345 FiO2 40 07/05 1232 O2 Delivery Ventilator 07/05 1229 Temp 98.1 07/05 1229 O2 Flow Rate 0 07/05 0932 PATIENT WEIGHT: Weight (lb): 215 Weight (oz): 2.74 Weight (kg): 97.600 Medications Current Home Medications ALBUTEROL (PROAIR HFA 90 MCG/ACT 8.5 GM) 2 PUFF INH RTQ6H PRN PRN SOB ASPIRIN EC (ECOTRIN) 81 MG PO DAILY CARVEDILOL (COREG) 25 MG PO BID MEALS ACETAMINOPHEN/CODEINE (TYLENOL WITH CODE INE #4 300/60 MG) 1 TAB PO Q6H PRN PRN PAIN ATORVASTATIN (LIPITOR) 20 MG PO BEDTIME LOSARTAN (COZAAR) 100 MG PO DAILY NIFEdipine CC (ADALAT CC) 90 MG PO Q12HR HYDROCHLOROTHIAZIDE (HYDRODIURIL) 25 MG PO DAILY Active Meds + DC'd Last 24 Hrs Potassium Bicarbonate/Citric Acid 40 MEQ DAILY P O Cefepime HCl 1 GM Q12HR IV Sterile Water 10 ML Losartan Potassium 50 MG DAILY PO Isosorbide Mononitrate 30 MG BID FEED-TUBE Potassium Bicarbonate/Citric Acid 20 MEQ DAILY F EED-TUBE Nicardipine HCl 125 MG TITRATE IV Sodium Chloride 200 ML Potassium Chloride 100 ML ASDIR PRN IV Propofol 100 ML TITRATE IV (CKD) Perflutren Lipid Microsphere DIRECTED ONCE PRN IV Sodium Chloride DIRECTED ONCE PRN IV Sodium Chloride 5 ML ONCE PRN IV Potassium Bicarbonate/Citric Acid 20 MEQ ASDIR P O (CKD) Potassium Chloride 100 ML ASDIR PRN IV Hydralazine HCl 100 MG Q8HR PO Labetalol HCl 400 MG Q8HR PO Furosemide 100 MG Q20H IV Sodium Chloride 90 ML Magnesium 100 ML ASDIR PRN IV Magnesium Sulfate 50 ML ASDIR PRN IV Magnesium Sulfate 100 ML ASDIR PRN IV Clonidine HCl 0.2 MG Q7D TRANSDERM (CKD) Amlodipine Besylate 5 MG Q12HR PO Aspirin 81 MG DAILY FEED-TUBE Atorvastatin Calcium 40 MG DAILY FEED-TUBE Albuterol/Ipratropium 3 ML RTQ6H INH Dextrose/Water 25 ML ASDIR PRN IV Glucagon 1 MG ASDIR PRN IM Insulin Human Lispro LOW DOSE SCALE ASDIR SUBQ Sterile Water 1 ML ASDIR PRN IM Famotidine 20 MG DAILY PO Heparin Sodium (Porcine) 5,000 UNIT Q12HR SUBQ Esmolol HCl 250 ML TITRATE IV (CKD) Physical Exam General appearance: lethargic, responsiveness, s edated Diagnosis, Assessment Plan Free Text A P: Assessment 1. Acute encephalopathy - multifactorial - metab olic/hypertensive emergency/ acute stroke 2. Acute ischemic strokes, suspect embolic sourc e, + PFO, b/l lower extremity dopplers negative 3. s/p PEA arrest 12/17/20 4. hypertensive emergency - still requiring akua rdipine drip and antihypertensives being adjusted 5. acute respiratory failure requiring intubatio n 6. complicated type b aortic dissection, in need of extension TEVAR when stable per vascular surgery Plan Awake but barely follows commands due to ?debili ty. Also on propofol blood pressure control- on cardene continue medical management asa and statin consider PFO closure in future when medically st abilized d/w nurse at 1400 RPT #:[id number] END OF REPORT 2020-07-05 13:43:00-00:[address] [facility] ([facility] Cardiology Progress Note REPORT#:[id number] REPORT STATUS: Signed DATE:07/05/20 TIME: 1343 PATIENT: JORGE GOINS UNIT #: [id number] ROOM/BED: [address] : [birth year] AGE: 34 SEX: M ATTEND: Luis M Olmedo MD ADM AUTHOR: Dat Stahl DO * ALL edits or amendments must be made on the [employer]idi/computer document * Subjective Free Text Subj Notes Free Text Subj Notes: no acute events overnight not following commmands off esmolol, weaning down nicardipine Objective General VS/I O: 24 hour I O ending at 0700: 07/05 0700 07/04 1900 Intake Total 1650.00 2434.00 Output Total 4000 2500 Balance -2350.00 -66.00 Intake, Free 90 Water Intake, IV 1320.00 2434.00 Intake, Other 180 Intake, Tube 60 Feeding Output, Stool 500 Output, Urine 3500 2500 Patient 97.6 kg Weight Weight Bed scale Measurement Method Vital Signs: Date Time Temp Pulse Resp B/P B/P Pulse O2 O2 F low FiO2 Mean Ox Delivery Rate 07/05 1232 81 100 40 07/05 1229 36.7 100 Ventilator 50 07/05 0941 79 17 100 07/05 0932 100 Ventilator 0 60 07/05 0832 78 100 60 07/05 0930 77 19 127/66 89 100 07/05 0823 79 18 100 01/10 0915 80 23 134/68 95 100 01/10 0900 79 19 132/71 95 100 01/10 0845 79 25 144/73 102 100 01/10 0830 80 24 147/80 108 100 01/10 0822 79 30 100 01/10 0815 80 42 141/78 104 100 01/10 0801 78 34 113/68 73 100 01/10 0800 Ventilator 30 01/10 0800 37.3 100 Ventilator 30 01/10 0800 79 49 100 01/10 0745 75 25 138/73 101 100 01/10 0730 75 25 154/81 111 100 01/10 0715 76 26 147/72 102 100 01/10 0700 77 26 160/81 111 100 01/10 0645 78 25 154/87 113 100 01/10 0630 79 37 164/79 110 100 01/10 0615 80 34 160/82 113 100 01/10 0600 83 45 162/93 121 100 01/10 0545 78 25 147/74 104 100 01/10 0530 78 30 143/74 100 100 01/10 0515 78 27 134/69 94 99 01/10 0500 79 35 141/72 96 100 01/10 0445 78 29 142/68 98 100 01/10 0430 78 24 137/66 94 100 01/10 0415 78 27 141/67 96 100 01/10 0400 36.9 Ventilator 30 01/10 0400 78 32 138/68 93 100 01/10 0345 78 25 133/61 88 100 01/10 0315 79 25 132/71 93 99 01/10 0300 79 24 129/71 93 99 01/10 0245 77 31 129/66 91 100 01/10 0230 78 28 132/66 91 100 01/10 0215 77 25 128/68 89 100 01/10 0200 77 25 121/66 88 100 01/10 0145 77 26 122/65 86 100 01/10 0130 76 25 123/66 88 100 01/10 0115 77 26 114/66 85 100 01/10 0100 76 28 103/68 81 100 01/10 0045 76 29 123/61 85 100 01/10 0030 75 24 120/61 84 100 01/10 0015 76 27 119/63 87 100 01/10 0000 36.8 Ventilator 30 01/10 0000 76 29 123/59 83 100 01/09 2345 75 27 122/60 85 100 01/09 2330 75 22 121/62 84 100 01/09 2315 75 33 128/66 88 100 / 2300 75 32 126/64 88 100 / 2245 76 29 131/65 91 100 /09 2230 75 28 127/65 90 100 01/09 2225 30 / 2225 100 Ventilator 30 / 2215 76 24 126/61 85 100 / 2200 77 26 134/64 89 100 / 2145 79 25 123/61 85 100 / 2130 77 28 127/65 88 100 / 2115 78 32 129/67 90 100 / 2100 79 19 122/59 82 100 07/045 77 25 122/57 82 100 07/04 2029 77 24 125/58 81 100 07/04 2014 77 22 137/69 94 100 /1999 77 23 133/72 94 100 07/04 1945 77 19 131/70 93 100 07/04 1930 76 27 117/70 90 100 07/04 1915 79 28 141/82 104 100 07/04 1900 Ventilator 30 07/04 1900 36.9 Ventilator 07/04 1900 76 21 138/68 95 100 / 1651 75 23 100 07/04 1645 75 22 136/63 89 100 07/04 1630 76 22 131/65 90 100 07/04 1615 75 18 122/63 86 100 / 1600 37.3 07/04 1600 75 13 124/70 89 100 / 1545 76 19 127/59 86 100 07/04 1530 77 12 134/63 89 100 07/04 1520 76 100 30 07/04 1515 77 14 130/62 87 100 07/04 1500 37.7 07/04 1500 78 19 137/65 92 100 / 1459 79 23 127/62 85 100 07/04 1445 80 21 99 07/04 1415 85 16 140/64 92 100 07/04 1400 39.2 07/04 1400 86 8 138/64 92 100 / 1345 85 38 148/67 96 100 PATIENT WEIGHT: Weight (lb): 215 Weight (oz): 2.74 Weight (kg): 97.600 Physical Exam General appearance: altered mental status, alert , no acute distress Head/Eyes: atraumatic, normocephalic ENT: moist mucosal membranes, normal nose Neck: non-tender, supple/no meningismus, traches otomy prsent Cardiovascular: CV assessment: regular rate and rhythm, no murm ur Respiratory: no distress, coarse breathsounds, m echanically ventialted Abdomen: soft, non-tender Upper extremity: UE assessment: normal capillary refill, normal temperature Lower extremity: LE assessment: normal capillary refill, normal temperature, no edema Musculoskeletal: normal inspection Neuro/RADIOTELEGRAPHIST: vented via trachesotomy, not followin g commands Diagnosis, Assessment Plan Free Text DxA P Notes Free Text DxA P Notes: 1. Hypertensive urgency/emergency - presented with severely elevated BP requiring 2 IV infusions, subsequently suffered PEA cardiac arrest - BP control improving - cont hydralazine 100mg Q8H, labetalol 400mg Q 8H, clonidine patch - norvasc and ISMN 30mg BID - increase losartan to 50mg BID - wean cardene, off esmolol 2. Cardiac arrest - PEA in etiology, pt became hypothermic and sub sequently bradycardic 3. Type B aortic dissection s/p EVAR - has residual descending aortic dissect ion extending into iliacs. No evidence of rupture on CTA. Reviewed by vascular surgery - appreciate assitance - optimal BP Control as above 4. Acute on chronic systolic heart failure - likely hypertensive heart disease due to long standing elevated BP - warm and well perfused on examination - cont lasix gtt 5. Shock - resolved 6. JENNIFER on CKD stage 3 - improved - likely secondary to fluctuation in BP - nephrology following, appreciate recommendatio ns - monitor UOP 7. Acute hypoxic respiratory failure - wean from ventilator as tolerated, now has tra cheostomy- per ICU team 8. Stroke: - CT head and MRI with evidence of prior CVA - TTE with possible PFO - mo nitor for neurological improvement then will discuss with family potential PFO closure Will follow. Please call if questions. [facility] Cardiology Electronically Signed by Dat Stahl 07/05/20 at 1345 RPT #:[id number] END OF REPORT 2020-07-05 11:54:00-00:[address] [facility] ([facility]) Critical Care Progress Note REPORT#:[id number] REPORT STATUS: Signed DATE:01/10/21 TIME: 1154 PATIENT: JORGE GOINS UNIT #: [id number] ROOM/BED: [address] : [birth year] AGE: 34 SEX: M ATTEND: Luis M Olmedo MD ADM AUTHOR: Jeffrey Mae MD * ALL edits or amendments must be made on the el [employer]/computer document * Subjective HPI: on vent on lasix drip off esmolol drip Objective General VS/I O Last Documented: Result Date Time Pulse Ox 100 07/05 940 Pulse 79 07/05 940 Resp 17 07/05 940 FiO2 60 07/05 931 O2 Delivery Ventilator 07/05 931 O2 Flow Rate 0 07/05 0932 B/P 127/66 07/05 0930 B/P Mean 89 07/05 929 Temp 37.3 07/05 0800 24 hour I O ending at 0700: 07/05 0700 07/04 1900 Intake Total 1650.00 2434.00 Output Total 4000 2500 Balance -2350.00 -66.00 Intake, Free 90 Water Intake, IV 1320.00 2434.00 Intake, Other 180 Intake, Tube 60 Feeding Output, Stool 500 Output, Urine 3500 2500 Patient 97.6 kg Weight Weight Bed scale Measurement Method PATIENT WEIGHT: Weight (lb): 215 Weight (oz): 2.74 Weight (kg): 97.600 Medications: Active Meds + DC'd Last 24 Hrs Potassium Bicarbonate/Citric Acid 40 MEQ DAILY P O Cefepime HCl 1 GM Q12HR IV Sterile Water 10 ML Losartan Potassium 50 MG DAILY PO Isosorbide Mononitrate 30 MG BID FEED-TUBE Potassium Bicarbonate/Citric Acid 20 MEQ DAILY F EED-TUBE Nicardipine HCl 125 MG TITRATE IV Sodium Chloride 200 ML Potassium Chloride 100 ML ASDIR PRN IV Propofol 100 ML TITRATE IV (CKD) Perflutren Lipid Microsphere DIRECTED ONCE PRN IV Sodium Chloride DIRECTED ONCE PRN IV Sodium Chloride 5 ML ONCE PRN IV Potassium Bicarbonate/Citric Acid 20 MEQ ASDIR P O (CKD) Potassium Chloride 100 ML ASDIR PRN IV Hydralazine HCl 100 MG Q8HR PO Labetalol HCl 400 MG Q8HR PO Furosemide 100 MG Q20H IV Sodium Chloride 90 ML Magnesium 100 ML ASDIR PRN IV Magnesium Sulfate 50 ML ASDIR PRN IV Magnesium Sulfate 100 ML ASDIR PRN IV Clonidine HCl 0.2 MG Q7D TRANSDERM (CKD) Amlodipine Besylate 5 MG Q12HR PO Aspirin 81 MG DAILY FEED-TUBE Atorvastatin Calcium 40 MG DAILY FEED-TUBE Albuterol/Ipratropium 3 ML RTQ6H INH Dextrose/Water 25 ML ASDIR PRN IV Glucagon 1 MG ASDIR PRN IM Insulin Human Lispro LOW DOSE SCALE ASDIR SUBQ Sterile Water 1 ML ASDIR PRN IM Famotidine 20 MG DAILY PO Heparin Sodium (Porcine) 5,000 UNIT Q12HR SUBQ Esmolol HCl 250 ML TITRATE IV (CKD) Physical Exam General appearance: respiratory support Head/Eyes: atraumatic, normocephalic Cardiovascular: normal heart sounds, normal S1 S 2, normal rate and rhythm Respiratory/Chest: aerating well, clear to auscu ltation Abdomen: soft, non-tender, normal bowel sounds, no distention Extremities: no edema Neuro/RADIOTELEGRAPHIST: disoriented Results Findings/Data: Laboratory Tests 07/05/20 0217: [Embedded Image Not Available] 07/04/20 1823: [Embedded Image Not Available] 07/04/20 1221: [Embedded Image Not Available] Laboratory Tests 07/05 0520 Blood Gas Puncture Site L Radial ABG pH (7.35 - 7.45 pH units) 7.49 H ABG pCO2 (35 - 48 mmHg) 36.7 ABG pO2 (83 - 108 mmHg) 124.3 H ABG PO2/FiO2 Ratio (mm/Hg) 414.33 ABG HCO3 (21 - 28 mmol/L) 28.2 H ABG Total CO2 (22 - 29 mmol/L) 27.6 ABG O2 Sat Calc/Denise (94 - 98 %) 99.1 H ABG Base Excess (-2 - 3 mmol/L) 4.7 H Emmanuel Test Positive Sodium (138 - 146 mmol/L) 139 Potassium (3.5 - 4.5 mmol/L) 3.6 Ionized Calcium (1.15 - 1.33 MMOL/L) 1.14 L Respiration Rate (12 - 20 /MIN) 12 O2 Delivery Device Adult Vent Vent Mode SIMV FiO2 (%) 30 Pressure Support (cmH2O) 10 Instrument (Specimen Descript) Arterial Laboratory Tests 07/05 07/05 07/05 07/05 07/04 0750 0520 0217 0013 1823 Chemistry Sodium (137 - 145 mmol/L) 141 Potassium (3.4 - 5.0 mmol/L) 3.2 L 3.1 L Chloride (98 - 107 mmol/L) 100 Carbon Dioxide (22 - 30 mmol/L) 34 H BUN (9 - 20 mg/dL) 28 H Creatinine (0.7 - 1.3 mg/dL) 1.2 Glomerular Filtr Rate (>60) 90 Glucose (74 - 106 mg/dL) 91 POC Glucose (74 - 106 MG/DL) 73 L 95 82 Calcium (8.4 - 10.2 mg/dL) 9.1 Magnesium (1.6 - 2.3 mg/dL) 2.3 Triglycerides (mg/dL) 186 07/04 07/04 1235 1221 Chemistry Potassium (3.4 - 5.0 mmol/L) 3.1 L POC Glucose (74 - 106 MG/DL) 71 L Magnesium (1.6 - 2.3 mg/dL) 2.1 Laboratory Tests 07/057 Hematology WBC (5.0 - 12.0 x10 3/uL) 7.3 RBC (4.70 - 6.10 x10 6/uL) 3.57 L Hgb (14.0 - 18.0 g/dL) 10.1 L Hct (37.0 - 49.0 %) 33.3 L MCV (80 - 94 fL) 93 MCH (27 - 31 pg) 28.3 MCHC (33 - 37 g/dL) 30.3 L RDW (11.5 - 15.5 %) 15.3 Plt Count (130 - 400 x10 3/uL) 326 MPV (9.4 - 16.4 fL) 10.5 Neut % (Auto) (43 - 65 %) 82.7 H Lymph % (Auto) (20.5 - 45.5 %) 6.7 L Citrus % (Auto) (5.5 - 11.7 %) 8.3 Eos % (Auto) (0.9 - 2.9 %) 1.7 Baso % (Auto) (0.2 - 1.0 %) 0.3 Neut # (Auto) (2.2 - 4.8 x10 3/uL) 6.01 H Lymph # (Auto) (1.3 - 2.9 x10 3/uL) 0.49 L Citrus # (Auto) (0.3 - 0.8 x10 3/uL) 0.60 Eos # (Auto) (0.0 - 0.2 x10 3/uL) 0.12 Baso # (Auto) (0.0 - 0.1 x10 3/uL) 0.02 Immature Gran % (0.0 - 2.0 %) 0.3 Nucleated RBC % (0 - 1.0 %) 0.0 Microbiology: 07/04 152 ENDOTRACH: Respiratory Culture - RECD 07/04 152 ENDOTRACH: Gram Stain - RECD 07/04 152 BLOOD: Blood Culture - RECD 07/04 152 BLOOD: Blood Culture - RES Radiology data Recent Impressions: RADIOLOGY - XR ABDOMEN 1 V 07/04 1939 Report Impression - Status: SIGNED Entered: 07/04/20202038 IMPRESSION: Diffuse bowel distention noted throughout the ab domen and pelvis with moderate pneumoperitoneum in the upper abdomen. These findings are unchanged from the prior examination. Impression By: [email or web address] - Kim Morrow MD RADIOLOGY - XR CHEST 1 V 07/05 0537 Report Impression - Status: SIGNED Entered: 07/05/2020 0749 IMPRESSION: Moderate central vascular congestion remains. Delgado zy infiltrate/edema persists in the left upper lobe. Slight overall improved aeration of the lungs however compared to prior day exam. Impression By: [email or web address] - Fay rose MD Diagnosis, Assessment Plan Free text A P: 34 year old male with history of aortic dissecti on s/p EVAR came in for hypertensive urgency A/P: Neuro -intubated -MRI multiple ischemic cva #AMS -MRI multifocal cva -on versed -neuro following Pulm -s/p trach -wean as tolerated CV #s/p Cardiac Arrest - PEA hypotensive. ROSC achieved after 9 minutes - likely from cardiogenic shock EF 30-34% - Aortic dissection ruled out from CTA chest , a bdomen and pelvis #hx of EVAR for aortic dissection and h/o endole ak in the past - per vascular surgery -uncontrolled hypertension still requiring esmolol and cardene # Fever carvajal culture start cefepie GI vomitted yesterday ileus NGT place to low intermittent suction now abdomen soft and bowel sounds heard will start clamping NGT and trickle feeds and se e how he does Renal stable gi ppx: pepcid dvt ppx: heparin Diet: tube feeds condition critical prognosis guarded CC time more than 45 minutes Reviewed chart/images Excludes all procedure time at 1156 RPT #:[id number] END OF REPORT 2020-07-04 17:27:00-00:00 [facility] Vascular Surgery Progress Note REPORT#:[id number] REPORT STATUS: Signed DATE:07/04/20 TIME: 1727 PATIENT: JORGE GOINS UNIT #: [id number] ROOM/BED: [address] : [birth year] AGE: 34 SEX: M ATTEND: Luis M Olmedo MD ADM AUTHOR: Kleber Newby MD * ALL edits or amendments must be made on the rimidi/computer document * Subjective Chief Complaint: Intubated and sedated at time of examination HPI No acute events overnight. Nurse notes that with sedation off the patient appeared to have meaningful movements this time however the patient is currently on propofol. The abdomen seems distended today. Objective General VS/I O Last Documented: Result Date Time Pulse Ox 100 07/04 1651 Pulse 75 07/04 1651 Resp 23 07/04 1651 B/P 136/63 07/04 1645 B/P Mean 89 07/04 1645 Temp 99.2 07/04 1600 FiO2 30 07/04 1520 O2 Delivery Ventilator 07/04 0853 O2 Flow Rate 0 07/02 0904 24 hour I O ending at 0700: 07/04 0700 07/03 1900 Intake Total 2720.00 3028.00 Output Total 4100 1999 Balance -1380.00 1028.00 Intake, Free 90 120 Water Intake, IV 2350.00 2668.00 Intake, Other 180 Intake, Tube 100 240 Feeding Output, Stool 300 Output, Urine 3800 1999 Patient 99.6 kg Weight Weight Bed scale Measurement Method PATIENT WEIGHT: Weight (lb): 219 Weight (oz): 9.29 Weight (kg): 99.600 General appearance: sedated HEENT: anicteric Neck: supple Cardiovascular: regular rate, hypertensive despi te multiple blood pressure lowering agents Respiratory: symmetric expansion, mechanically v entilated Abdomen: distended Genitourinary: zuñiga Extremities: palpable radial and dorsalis pedis pulses bilaterally Neuro/RADIOTELEGRAPHIST: intubated and sedated Skin: no flank or back ecchymosis Psychiatry: unable to evaluate Diagnosis, Assessment Plan Free Text A P: 34 year old male with complicated type B dissection in need of extension TEVAR when stable Keep BP less than 120mmhg with heart rate goal o f 60 bpm Extubate when feasible: Patient has now been tra ched, wean from vent as tolerated Will need further TEVAR when stable Vascular surgery will continue to follow closely . Electronically Signed by Kleber Newby MD on 03/16 at 1729 RPT #:[id number] END OF REPORT 2020-07-04 15:25:00-00:00 [facility] Neurology Progress Note REPORT#:[id number] REPORT STATUS: Signed DATE:07/04/20 TIME: 1525 PATIENT: JORGE GOINS UNIT #: [id number] ROOM/BED: [address] : [birth year] AGE: 34 SEX: M ATTEND: Luis M Olmedo MD ADM AUTHOR: Tanya Davila MD * ALL edits or amendments must be made on the rimidi/computer document * Subjective Chief Complaint: Lethargy and AMS Patient reports: No: complaints. Comments: No new neuro issues. On propofol currently. Wake s up and follows tracks and ? follows commands per nursing Objective General VS: Last Documented: Result Date Time Pulse Ox 100 07/04 1520 FiO2 30 07/04 1520 Pulse 76 07/04 1520 Resp 22 07/04 0810 B/P 168/77 07/04 0800 B/P Mean 110 07/04 899 O2 Delivery Ventilator 07/04 852 Temp 99.3 07/04 799 O2 Flow Rate 0 07/02 903 PATIENT WEIGHT: Weight (lb): 219 Weight (oz): 9.29 Weight (kg): 99.600 Medications Current Home Medications ALBUTEROL (PROAIR HFA 90 MCG/ACT 8.5 GM) 2 PUFF INH RTQ6H PRN PRN SOB ASPIRIN EC (ECOTRIN) 81 MG PO DAILY CARVEDILOL (COREG) 25 MG PO BID MEALS ACETAMINOPHEN/CODEINE (TYLENOL WITH CODE INE #4 300/60 MG) 1 TAB PO Q6H PRN PRN PAIN ATORVASTATIN (LIPITOR) 20 MG PO BEDTIME LOSARTAN (COZAAR) 100 MG PO DAILY NIFEdipine CC (ADALAT CC) 90 MG PO Q12HR HYDROCHLOROTHIAZIDE (HYDRODIURIL) 25 MG PO DAILY Active Meds + DC'd Last 24 Hrs Potassium Bicarbonate/Citric Acid 40 MEQ DAILY P O Cefepime HCl 1 GM Q12HR IV Sterile Water 10 ML Losartan Potassium 50 MG DAILY PO Isosorbide Mononitrate 30 MG BID FEED-TUBE Albumin Human 500 ML .STK-MED ONE IV (DC) Potassium Bicarbonate/Citric Acid 20 MEQ DAILY F EED-TUBE Nicardipine HCl 125 MG TITRATE IV Sodium Chloride 200 ML Potassium Chloride 100 ML ASDIR PRN IV Propofol 100 ML TITRATE IV (CKD) Cefazolin Sodium 1 GM PREOP IV (DC) Sterile Water 10 ML Perflutren Lipid Microsphere DIRECTED ONCE PRN IV Sodium Chloride DIRECTED ONCE PRN IV Sodium Chloride 5 ML ONCE PRN IV Potassium Bicarbonate/Citric Acid 20 MEQ ASDIR P O (CKD) Potassium Chloride 100 ML ASDIR PRN IV Hydralazine HCl 100 MG Q8HR PO Labetalol HCl 400 MG Q8HR PO Furosemide 100 MG Q20H IV Sodium Chloride 90 ML Isosorbide Mononitrate 30 MG BID PO (DC) Magnesium 100 ML ASDIR PRN IV Magnesium Sulfate 50 ML ASDIR PRN IV Magnesium Sulfate 100 ML ASDIR PRN IV Clonidine HCl 0.2 MG Q7D TRANSDERM (CKD) Amlodipine Besylate 5 MG Q12HR PO Aspirin 81 MG DAILY FEED-TUBE Atorvastatin Calcium 40 MG DAILY FEED-TUBE Albuterol/Ipratropium 3 ML RTQ6H INH Dextrose/Water 25 ML ASDIR PRN IV Glucagon 1 MG ASDIR PRN IM Insulin Human Lispro LOW DOSE SCALE ASDIR SUBQ Sterile Water 1 ML ASDIR PRN IM Famotidine 20 MG DAILY PO Heparin Sodium (Porcine) 5,000 UNIT Q12HR SUBQ Esmolol HCl 250 ML TITRATE IV (CKD) Physical Exam General appearance: sedated, sleeping comfortabl y Diagnosis, Assessment Plan Free Text A P: Assessment 1. Acute encephalopathy - multifactorial - metab olic/hypertensive emergency/ acute stroke 2. Acute ischemic strokes, suspect embolic sourc e, + PFO, b/l lower extremity dopplers negative 3. s/p PEA arrest 06/11/20 4. hypertensive emergency - still requiring akua rdipine drip and antihypertensives being adjusted 5. acute respiratory failure requiring intubatio n 6. complicated type b aortic dissection, in need of extension TEVAR when stable per vascular surgery Plan blood pressure control continue current care plan asa and statin consider PFO closure in future when medically st abilized d/w nurse at 1526 RPT #:[id number] END OF REPORT 2020-07-04 14:39:00-00:[address] [facility] ([facility]) Critical Care Progress Note REPORT#:[id number] REPORT STATUS: Signed DATE:07/04/20 TIME: 1439 PATIENT: JORGE GOINS UNIT #: [id number] ROOM/BED: [address] : [birth year] AGE: 34 SEX: M ATTEND: Luis M Olmedo MD ADM AUTHOR: Papi England MD * ALL edits or amendments must be made on the [employer]/computer document * Subjective Chief Complaint: s/p trach febrile mental status unchanged Objective General VS/I O Last Documented: Result Date Time Pulse Ox 100 07/04 1254 FiO2 30 07/04 1254 Pulse 85 07/04 1254 Resp 22 07/04 0810 B/P 168/77 07/04 0800 B/P Mean 110 07/04 899 O2 Delivery Ventilator 07/04 0753 Temp 37.4 07/04 799 O2 Flow Rate 0 07/02 0804 24 hour I O ending at 0700: 07/04 0700 07/03 1900 Intake Total 2720.00 3028.00 Output Total 4100 2000 Balance -1380.00 1028.00 Intake, Free 90 120 Water Intake, IV 2350.00 2668.00 Intake, Other 180 Intake, Tube 100 240 Feeding Output, Stool 300 Output, Urine 3800 2000 Patient 99.6 kg Weight Weight Bed scale Measurement Method PATIENT WEIGHT: Weight (lb): 219 Weight (oz): 9.29 Weight (kg): 99.600 Medications: Active Meds + DC'd Last 24 Hrs Potassium Bicarbonate/Citric Acid 40 MEQ DAILY P O Cefepime HCl 1 GM Q12HR IV Sterile Water 10 ML Losartan Potassium 50 MG DAILY PO Isosorbide Mononitrate 30 MG BID FEED-TUBE Albumin Human 500 ML .STK-MED ONE IV (DC) Potassium Bicarbonate/Citric Acid 20 MEQ DAILY F EED-TUBE Nicardipine HCl 125 MG TITRATE IV Sodium Chloride 200 ML Potassium Chloride 100 ML ASDIR PRN IV Propofol 100 ML TITRATE IV (CKD) Cefazolin Sodium 1 GM PREOP IV (DC) Sterile Water 10 ML Perflutren Lipid Microsphere DIRECTED ONCE PRN IV Sodium Chloride DIRECTED ONCE PRN IV Sodium Chloride 5 ML ONCE PRN IV Potassium Bicarbonate/Citric Acid 20 MEQ ASDIR P O (CKD) Potassium Chloride 100 ML ASDIR PRN IV Hydralazine HCl 100 MG Q8HR PO Labetalol HCl 400 MG Q8HR PO Furosemide 100 MG Q20H IV Sodium Chloride 90 ML Isosorbide Mononitrate 30 MG BID PO (DC) Magnesium 100 ML ASDIR PRN IV Magnesium Sulfate 50 ML ASDIR PRN IV Magnesium Sulfate 100 ML ASDIR PRN IV Clonidine HCl 0.2 MG Q7D TRANSDERM (CKD) Amlodipine Besylate 5 MG Q12HR PO Aspirin 81 MG DAILY FEED-TUBE Atorvastatin Calcium 40 MG DAILY FEED-TUBE Albuterol/Ipratropium 3 ML RTQ6H INH Dextrose/Water 25 ML ASDIR PRN IV Glucagon 1 MG ASDIR PRN IM Insulin Human Lispro LOW DOSE SCALE ASDIR SUBQ Sterile Water 1 ML ASDIR PRN IM Famotidine 20 MG DAILY PO Heparin Sodium (Porcine) 5,000 UNIT Q12HR SUBQ Esmolol HCl 250 ML TITRATE IV (CKD) Physical Exam General appearance: altered mental status Head/Eyes: atraumatic, normocephalic Cardiovascular: normal heart sounds, normal S1 S 2, normal rate and rhythm Respiratory/Chest: aerating well, clear to auscu ltation Abdomen: soft, non-tender, normal bowel sounds, no distention Extremities: no edema Neuro/RADIOTELEGRAPHIST: disoriented Results Findings/Data: Laboratory Tests 07/04/20 1221: [Embedded Image Not Available] 07/04/207: [Embedded Image Not Available] Laboratory Tests 07/04 447 Blood Gas Puncture Site R Radial ABG pH (7.35 - 7.45 pH units) 7.46 H ABG pCO2 (35 - 48 mmHg) 42.2 ABG pO2 (83 - 108 mmHg) 104.7 ABG PO2/FiO2 Ratio (mm/Hg) 349.00 ABG HCO3 (21 - 28 mmol/L) 30.2 H ABG Total CO2 (22 - 29 mmol/L) 29.7 H ABG O2 Sat Calc/Denise (94 - 98 %) 98.3 H ABG Base Excess (-2 - 3 mmol/L) 5.8 H Emmanuel Test Negative Sodium (138 - 146 mmol/L) 142 Potassium (3.5 - 4.5 mmol/L) 3.1 L Ionized Calcium (1.15 - 1.33 MMOL/L) 1.14 L Respiration Rate (12 - 20 /MIN) 12 O2 Delivery Device Adult Vent Vent Mode SIMV FiO2 (%) 30 Instrument (Specimen Descript) Arterial Laboratory Tests 07/04 07/04 07/04 07/04 07/04 1235 1221 0542 0448 022 Chemistry Sodium (137 - 145 mmol/L) 141 Potassium (3.4 - 5.0 mmol/L) 3.1 L 2.9 L Chloride (98 - 107 mmol/L) 99 Carbon Dioxide (22 - 30 mmol/L) 34 H BUN (9 - 20 mg/dL) 26 H Creatinine (0.7 - 1.3 mg/dL) 1.0 Glomerular Filtr Rate (>60) 111 Glucose (74 - 106 mg/dL) 82 POC Glucose (74 - 106 MG/DL) 71 L 77 85 Calcium (8.4 - 10.2 mg/dL) 8.4 Magnesium (1.6 - 2.3 mg/dL) 2.1 2.0 07/03 07/03 07/03 2335 1814 1508 Chemistry POC Glucose (74 - 106 MG/DL) 92 93 100 Laboratory Tests 07/04 226 Hematology WBC (5.0 - 12.0 x10 3/uL) 6.5 RBC (4.70 - 6.10 x10 6/uL) 3.23 L Hgb (14.0 - 18.0 g/dL) 9.3 L Hct (37.0 - 49.0 %) 29.9 L MCV (80 - 94 fL) 93 MCH (27 - 31 pg) 28.8 MCHC (33 - 37 g/dL) 31.1 L RDW (11.5 - 15.5 %) 15.2 Plt Count (130 - 400 x10 3/uL) 267 MPV (9.4 - 16.4 fL) 10.4 Neut % (Auto) (43 - 65 %) 80.7 H Lymph % (Auto) (20.5 - 45.5 %) 7.5 L Citrus % (Auto) (5.5 - 11.7 %) 8.7 Eos % (Auto) (0.9 - 2.9 %) 2.3 Baso % (Auto) (0.2 - 1.0 %) 0.3 Neut # (Auto) (2.2 - 4.8 x10 3/uL) 5.26 H Lymph # (Auto) (1.3 - 2.9 x10 3/uL) 0.49 L Citrus # (Auto) (0.3 - 0.8 x10 3/uL) 0.57 Eos # (Auto) (0.0 - 0.2 x10 3/uL) 0.15 Baso # (Auto) (0.0 - 0.1 x10 3/uL) 0.02 Immature Gran % (0.0 - 2.0 %) 0.5 Nucleated RBC % (0 - 1.0 %) 0.0 Microbiology: 07/04 1436 ENDOTRACH: Respiratory Culture - ORD 07/04 1436 ENDOTRACH: Gram Stain - ORD 07/04 143 BLOOD: Blood Culture - ORD Radiology data Recent Impressions: RADIOLOGY - XR CHEST 1 V 07/04 0548 Report Impression - Status: SIGNED Entered: 07/04/2020 0803 IMPRESSION: 1. Moderate hazy diffuse bilateral pulmonary inf iltrates are seen, increased, possibly representing progressing int erstitial edema. 2. Cardiomegaly with cardiac stent redemonstrate d 3. Trace residual free intra-abdominal air is se en, decreased. Impression By: LourdesEFNeftali - Fay rose MD Diagnosis, Assessment Plan Free text A P: 34 year old male with history of aortic dissecti on s/p EVAR came in for hypertensive urgency A/P: Neuro -intubated -MRI multiple ischemic cva #AMS -MRI multifocal cva -on versed -EEG pending -neuro following Pulm -s/p trach -wean as tolerated CV #s/p Cardiac Arrest - PEA hypotensive. ROSC achieved after 9 minutes - likely from cardiogenic shock EF 30-34% - off all pressors - Aortic dissection ruled out from CTA chest , a bdomen and pelvis #hx of EVAR for aortic dissection and h/o endole ak in the past - per vascular surgery -uncontrolled hypertension still requiring esmolol and cardene ECHO WMA per cardiology # Fever carvajal culture start cefepie GI on tube feeding Renal stable gi ppx: pepcid dvt ppx: heparin Diet: tube feeds condition critical prognosis guarded CC time more than 45 minutes Reviewed chart/images Excludes all procedure time at 1451 RPT #:[id number] END OF REPORT 2020-07-04 14:06:00-00:[address] [facility] ([facility]) Cardiology Progress Note REPORT#:[id number] REPORT STATUS: Signed DATE:07/04/20 TIME: 1406 PATIENT: JORGE GOINS UNIT #: [id number] ROOM/BED: [address] : [birth year] AGE: 34 SEX: M ATTEND: Luis M Olmedo MD ADM AUTHOR: Dat Stahl DO * ALL edits or amendments must be made on the rimidi/computer document * Subjective Free Text Subj Notes Free Text Subj Notes: vented via tracheostomy, sedated remains on nicardipine and esmolol Objective General VS/I O: 24 hour I O ending at 0700: 09 0700 08 1900 Intake Total 2720.00 3028.00 Output Total 4100 1999 Balance -1380.00 1028.00 Intake, Free 90 120 Water Intake, IV 2350.00 2668.00 Intake, Other 180 Intake, Tube 100 240 Feeding Output, Stool 300 Output, Urine 3800 2000 Patient 99.6 kg Weight Weight Bed scale Measurement Method Vital Signs: Date Time Temp Pulse Resp B/P B/P Pulse O2 O2 F low FiO2 Mean Ox Delivery Rate 07/04 1254 85 100 30 07/04 0910 81 22 99 / 0900 80 26 168/77 110 100 / 0853 Ventilator 30 07/04 0845 81 18 163/75 108 99 / 0834 98 Ventilator 30 07/04 0834 80 98 30 07/04 0830 81 20 159/70 105 98 / 0815 84 22 155/77 106 98 / 0800 37.4 07/04 0800 82 24 154/81 107 99 / 0745 81 26 139/82 102 99 / 0730 81 24 122/80 94 98 / 0715 80 26 160/77 110 100 /09 0700 80 19 152/70 100 100 / 0645 80 22 151/71 102 100 / 0630 80 23 145/68 99 100 / 0615 80 25 149/70 101 100 /09 0600 80 20 147/71 100 100 /09 0545 79 22 156/74 106 87 / 0530 78 18 155/78 107 99 /09 0525 30 / 0515 77 22 159/79 111 99 /09 0500 75 26 160/76 109 99 /09 0445 75 21 152/71 102 99 /09 0430 76 22 151/72 103 100 /09 0415 76 25 151/74 104 100 /09 0400 37.8 Ventilator 30 / 0400 77 28 151/73 104 98 /09 0353 78 22 145/71 101 97 /09 0330 75 25 156/70 100 99 /09 0315 76 26 151/68 98 99 01/09 0300 76 26 152/64 99 99 01/09 0245 76 26 151/70 100 99 01/09 0230 77 21 150/70 100 100 /09 0215 75 24 146/68 98 99 01/09 0201 30 01/09 0200 75 25 141/62 93 98 01/09 0145 75 24 141/66 95 99 01/09 0130 75 17 137/63 91 100 01/09 0115 74 27 137/64 92 100 01/09 0100 74 27 134/64 90 100 01/09 0045 74 21 133/66 92 100 01/09 0030 74 25 131/68 93 99 01/09 0015 74 26 134/69 94 99 01/09 0010 74 01/09 0000 37.4 Ventilator 30 01/09 0000 74 22 136/70 98 100 01/08 2345 73 22 136/63 92 97 01/08 2330 74 16 135/65 93 99 01/08 2315 74 17 133/63 91 99 01/08 2300 75 12 131/63 90 99 01/08 2245 75 21 135/65 93 100 01/08 2230 76 23 133/62 89 100 01/08 2215 74 22 139/65 93 99 01/08 2200 74 26 149/66 97 99 01/08 2145 74 16 146/69 99 99 01/08 2130 75 21 145/68 98 100 01/08 2115 77 19 140/63 91 100 01/08 2100 74 20 147/65 93 100 01/08 2050 30 01/08 2045 75 18 145/64 92 100 01/08 2029 75 17 148/67 97 100 01/08 2014 75 21 153/67 96 100 01/08 1999 75 21 151/67 96 100 01/08 1945 73 22 156/69 99 100 01/08 1930 74 24 156/70 100 100 01/08 1915 74 25 149/67 97 99 01/08 1900 Ventilator 30 01/08 1900 37.3 Ventilator 30 01/08 1900 74 23 148/65 93 99 01/08 1830 72 25 143/63 91 97 01/08 1800 73 25 135/61 88 100 01/08 1730 74 29 130/62 88 99 01/08 1700 73 21 138/70 96 99 01/08 1645 74 21 138/71 97 100 01/08 1615 73 19 129/68 91 100 01/08 1600 37.2 01/08 1600 73 14 135/67 94 100 01/08 1534 73 99 30 01/08 1530 73 29 144/66 97 99 01/08 1500 72 19 154/67 97 98 01/08 1430 73 18 156/71 102 98 PATIENT WEIGHT: Weight (lb): 219 Weight (oz): 9.29 Weight (kg): 99.600 Physical Exam General appearance: no acute distress, sedated Head/Eyes: atraumatic, normocephalic ENT: moist mucosal membranes, normal nose Neck: non-tender, supple/no meningismus, traches otomy prsent Cardiovascular: CV assessment: regular rate and rhythm, no murm ur Respiratory: no distress, coarse breathsounds, m echanically ventialted Abdomen: soft, non-tender Upper extremity: UE assessment: normal capillary refill, normal temperature Lower extremity: LE assessment: normal capillary refill, normal temperature, no edema Musculoskeletal: normal inspection Neuro/RADIOTELEGRAPHIST: intubated and sedated, withdraws to p ainful stimuli Diagnosis, Assessment Plan Free Text DxA P Notes Free Text DxA P Notes: 1. Hypertensive urgency/emergency - presented with severely elevated BP requiring 2 IV infusions, subsequently suffered PEA cardiac arrest - BP remains elevated - cont hydralazine 100mg Q8H, labetalol 400mg Q 8H, clonidine patch - norvasc and ISMN 30mg BID - Cr stabilized - add losartan 50mg daily - wean cardene and esmlol 2. Cardiac arrest - PEA in etiology, pt became hypothermic and sub sequently bradycardic 3. Type B aortic dissection s/p EVAR - has residual descending aortic dissect ion extending into iliacs. No evidence of rupture on CTA. Reviewed by vascular surgery - appreciate assitance - needs aggressive BP Control. 4. Acute on chronic systolic heart failure - likely hypertensive heart disease due to long standing elevated BP - warm and well perfused on examination - cont lasix gtt 5. Shock - resolved 6. JENNIFER on CKD stage 3 - improved - likely secondary to fluctuation in BP - nephrology following, appreciate recommendatio ns - monitor UOP 7. Acute hypoxic respiratory failure - wean from ventilator as tolerated - per ICU te am 8. Stroke: - CT head and MRI with evidence of prior CVA - TTE with possible PFO - mo nitor for neurological improvement then will discuss with family potential PFO closure Will follow. Please call if questions. [facility] Cardiology Electronically Signed by Dat Stahl 07/04/20 at 1411 RPT #:[id number] END OF REPORT 2020-07-04 10:53:00-00:00 [facility]) Nephrology Progress Note REPORT#:[id number] REPORT STATUS: Signed DATE:07/04/20 TIME: 1053 PATIENT: JORGE GOINS UNIT #: [id number] ROOM/BED: [address] : [birth year] AGE: 34 SEX: M ATTEND: Luis M Olmedo MD ADM AUTHOR: Ceferino De La Garza MD * ALL edits or amendments must be made on the [employer] document * Subjective Comments: events noted Objective General VS/I O: Vital Signs: Date Time Temp Pulse Resp B/P B/P Pulse O2 O2 F low FiO2 Mean Ox Delivery Rate 07/04 0910 81 22 99 07/04 0900 80 26 168/77 110 100 07/04 0853 Ventilator 30 07/04 0845 81 18 163/75 108 99 07/04 0834 98 Ventilator 30 07/04 0834 80 98 30 07/04 0830 81 20 159/70 105 98 07/04 0815 84 22 155/77 106 98 07/04 0800 37.4 07/04 0800 82 24 154/81 107 99 / 0745 81 26 139/82 102 99 / 0730 81 24 122/80 94 98 / 0715 80 26 160/77 110 100 /09 0700 80 19 152/70 100 100 /09 0645 80 22 151/71 102 100 /09 0630 80 23 145/68 99 100 /09 0615 80 25 149/70 101 100 /09 0600 80 20 147/71 100 100 / 0545 79 22 156/74 106 87 / 0530 78 18 155/78 107 99 /09 0525 30 / 0515 77 22 159/79 111 99 / 0500 75 26 160/76 109 99 / 0445 75 21 152/71 102 99 01/09 0430 76 22 151/72 103 100 / 0415 76 25 151/74 104 100 /09 0400 37.8 Ventilator 30 01/ 0400 77 28 151/73 104 98 01/ 0353 78 22 145/71 101 97 01/09 0330 75 25 156/70 100 99 / 0315 76 26 151/68 98 99 / 0300 76 26 152/64 99 99 / 0245 76 26 151/70 100 99 01/09 0230 77 21 150/70 100 100 01/09 0215 75 24 146/68 98 99 01/09 0201 30 01/09 0200 75 25 141/62 93 98 01/09 0145 75 24 141/66 95 99 01/09 0130 75 17 137/63 91 100 01/09 0115 74 27 137/64 92 100 01/09 0100 74 27 134/64 90 100 01/09 0045 74 21 133/66 92 100 01/09 0030 74 25 131/68 93 99 01/09 0015 74 26 134/69 94 99 01/09 0010 74 01/09 0000 37.4 Ventilator 30 01/09 0000 74 22 136/70 98 100 01/08 2345 73 22 136/63 92 97 01/08 2330 74 16 135/65 93 99 01/08 2315 74 17 133/63 91 99 01/08 2300 75 12 131/63 90 99 01/08 2245 75 21 135/65 93 100 01/08 2230 76 23 133/62 89 100 01/08 2215 74 22 139/65 93 99 01/08 2200 74 26 149/66 97 99 01/08 2145 74 16 146/69 99 99 01/08 2130 75 21 145/68 98 100 01/08 2115 77 19 140/63 91 100 01/08 2100 74 20 147/65 93 100 01/08 2050 30 01/08 2045 75 18 145/64 92 100 01/08 2029 75 17 148/67 97 100 01/08 2014 75 21 153/67 96 100 01/08 1999 75 21 151/67 96 100 01/08 1945 73 22 156/69 99 100 01/08 1930 74 24 156/70 100 100 01/08 1915 74 25 149/67 97 99 01/08 1900 Ventilator 30 01/08 1900 37.3 Ventilator 30 01/08 1900 74 23 148/65 93 99 01/08 1830 72 25 143/63 91 97 01/08 1800 73 25 135/61 88 100 01/08 1730 74 29 130/62 88 99 01/08 1700 73 21 138/70 96 99 01/08 1645 74 21 138/71 97 100 01/08 1615 73 19 129/68 91 100 01/08 1600 37.2 01/08 1600 73 14 135/67 94 100 01/08 1534 73 99 30 07/03 1530 73 29 144/66 97 99 07/03 1500 72 19 154/67 97 98 07/03 1430 73 18 156/71 102 98 07/03 1400 72 8 149/63 97 98 07/03 1330 74 12 160/72 104 97 07/03 1300 74 14 154/70 103 98 07/03 1230 74 23 164/76 109 98 07/03 1200 37.2 07/03 1200 75 25 163/78 112 99 07/03 1130 74 23 159/74 106 98 07/03 1100 72 18 156/72 103 99 24 hour I O ending at 0700: 07/04 0700 07/03 1900 Intake Total 2720.00 3028.00 Output Total 4100 1999 Balance -1380.00 1028.00 Intake, Free 90 120 Water Intake, IV 2350.00 2668.00 Intake, Other 180 Intake, Tube 100 240 Feeding Output, Stool 300 Output, Urine 3800 1999 Patient 99.6 kg Weight Weight Bed scale Measurement Method Medications Active Meds + DC'd Last 24 Hrs Isosorbide Mononitrate 30 MG BID FEED-TUBE Albumin Human 500 ML .STK-MED ONE IV (DC) Potassium Bicarbonate/Citric Acid 20 MEQ DAILY F EED-TUBE Nicardipine HCl 125 MG TITRATE IV Sodium Chloride 200 ML Potassium Chloride 100 ML ASDIR PRN IV Propofol 100 ML TITRATE IV (CKD) Cefazolin Sodium 1 GM PREOP IV (DC) Sterile Water 10 ML Perflutren Lipid Microsphere DIRECTED ONCE PRN IV Sodium Chloride DIRECTED ONCE PRN IV Sodium Chloride 5 ML ONCE PRN IV Potassium Bicarbonate/Citric Acid 20 MEQ ASDIR P O (CKD) Potassium Chloride 100 ML ASDIR PRN IV Hydralazine HCl 100 MG Q8HR PO Labetalol HCl 400 MG Q8HR PO Furosemide 100 MG Q20H IV Sodium Chloride 90 ML Isosorbide Mononitrate 30 MG BID PO (DC) Magnesium 100 ML ASDIR PRN IV Magnesium Sulfate 50 ML ASDIR PRN IV Magnesium Sulfate 100 ML ASDIR PRN IV Clonidine HCl 0.2 MG Q7D TRANSDERM (CKD) Amlodipine Besylate 5 MG Q12HR PO Aspirin 81 MG DAILY FEED-TUBE Atorvastatin Calcium 40 MG DAILY FEED-TUBE Albuterol/Ipratropium 3 ML RTQ6H INH Dextrose/Water 25 ML ASDIR PRN IV Glucagon 1 MG ASDIR PRN IM Insulin Human Lispro LOW DOSE SCALE ASDIR SUBQ Sterile Water 1 ML ASDIR PRN IM Famotidine 20 MG DAILY PO Heparin Sodium (Porcine) 5,000 UNIT Q12HR SUBQ Esmolol HCl 250 ML TITRATE IV (CKD) Physical Exam Head/eyes: normal conjunctiva/sclera Neck: no JVD Respiratory: symmetric expansion Genitourinary: zuñiga, urine (appears pink) Extremities: pedal edema improved Musculoskeletal: normal inspection Neuro/RADIOTELEGRAPHIST: SEDATED Hemodialysis access: Type: vascath Psychiatry: unable to evaluate Results Findings/Data: Laboratory Tests 07/04 447 Blood Gas Puncture Site R Radial ABG pH (7.35 - 7.45 pH units) 7.46 H ABG pCO2 (35 - 48 mmHg) 42.2 ABG pO2 (83 - 108 mmHg) 104.7 ABG PO2/FiO2 Ratio (mm/Hg) 349.00 ABG HCO3 (21 - 28 mmol/L) 30.2 H ABG Total CO2 (22 - 29 mmol/L) 29.7 H ABG O2 Sat Calc/Denise (94 - 98 %) 98.3 H ABG Base Excess (-2 - 3 mmol/L) 5.8 H Emmanuel Test Negative Sodium (138 - 146 mmol/L) 142 Potassium (3.5 - 4.5 mmol/L) 3.1 L Ionized Calcium (1.15 - 1.33 MMOL/L) 1.14 L Respiration Rate (12 - 20 /MIN) 12 O2 Delivery Device Adult Vent Vent Mode SIMV FiO2 (%) 30 Instrument (Specimen Descript) Arterial Laboratory Tests 07/04 07/04 07/04 07/03 07/03 0542 0448 0227 8118 1814 Chemistry Sodium (137 - 145 mmol/L) 141 Potassium (3.4 - 5.0 mmol/L) 2.9 L Chloride (98 - 107 mmol/L) 99 Carbon Dioxide (22 - 30 mmol/L) 34 H BUN (9 - 20 mg/dL) 26 H Creatinine (0.7 - 1.3 mg/dL) 1.0 Glomerular Filtr Rate (>60) 111 Glucose (74 - 106 mg/dL) 82 POC Glucose (74 - 106 MG/DL) 77 85 92 93 Calcium (8.4 - 10.2 mg/dL) 8.4 Magnesium (1.6 - 2.3 mg/dL) 2.0 07/03 1508 Chemistry POC Glucose (74 - 106 MG/DL) 100 Laboratory Tests 07/04 0227 Hematology WBC (5.0 - 12.0 x10 3/uL) 6.5 RBC (4.70 - 6.10 x10 6/uL) 3.23 L Hgb (14.0 - 18.0 g/dL) 9.3 L Hct (37.0 - 49.0 %) 29.9 L MCV (80 - 94 fL) 93 MCH (27 - 31 pg) 28.8 MCHC (33 - 37 g/dL) 31.1 L RDW (11.5 - 15.5 %) 15.2 Plt Count (130 - 400 x10 3/uL) 267 MPV (9.4 - 16.4 fL) 10.4 Neut % (Auto) (43 - 65 %) 80.7 H Lymph % (Auto) (20.5 - 45.5 %) 7.5 L Citrus % (Auto) (5.5 - 11.7 %) 8.7 Eos % (Auto) (0.9 - 2.9 %) 2.3 Baso % (Auto) (0.2 - 1.0 %) 0.3 Neut # (Auto) (2.2 - 4.8 x10 3/uL) 5.26 H Lymph # (Auto) (1.3 - 2.9 x10 3/uL) 0.49 L Citrus # (Auto) (0.3 - 0.8 x10 3/uL) 0.57 Eos # (Auto) (0.0 - 0.2 x10 3/uL) 0.15 Baso # (Auto) (0.0 - 0.1 x10 3/uL) 0.02 Immature Gran % (0.0 - 2.0 %) 0.5 Nucleated RBC % (0 - 1.0 %) 0.0 Radiology data: Recent Impressions: RADIOLOGY - XR CHEST 1 V 07/04 0448 Report Impression - Status: SIGNED Entered: 07/04/2020 0803 IMPRESSION: 1. Moderate hazy diffuse bilateral pulmonary inf iltrates are seen, increased, possibly representing progressing int erstitial edema. 2. Cardiomegaly with cardiac stent redemonstrate d 3. Trace residual free intra-abdominal air is se en, decreased. Impression By: [email or web address] - Fay rose MD Diagnosis, Assessment Plan Free Text A P: JENNIFER hypotension AAA lactic acidosis severe metabolic acidosis will monitor at 2050 RPT #:[id number] END OF REPORT 2020-07-03 23:03:00-00:[address] [facility] ([facility]) Critical Care Progress Note REPORT#:[id number] REPORT STATUS: Signed DATE:07/03/20 TIME: 2302 PATIENT: JORGE GOINS UNIT #: [id number] ROOM/BED: [address] : [birth year] AGE: 34 SEX: M ATTEND: Luis M Olmedo MD ADM AUTHOR: Edy Olmedo MD * ALL edits or amendments must be made on the el [employer]/computer document * Subjective Chief Complaint: trach and peg today Objective Physical Exam Head/Eyes: atraumatic, normocephalic Cardiovascular: normal heart sounds, normal S1 S 2, normal rate and rhythm Respiratory/Chest: aerating well, clear to auscu ltation Abdomen: soft, non-tender, normal bowel sounds, no distention Extremities: no edema Neuro/RADIOTELEGRAPHIST: disoriented Diagnosis, Assessment Plan Free text A P: 34 year old male with history of aortic dissecti on s/p EVAR came in for hypertensive urgency A/P: Neuro -intubated -MRI multiple ischemic cva #AMS -MRI multifocal cva -on versed -EEG pending -neuro following Pulm -s/p intubation following cardiac arrest -on FiO2 28% -ABG this AM 7.47/29.3/118.3/21.1 -mental status not optimal for extubation Airway protection is an issue will proceed with trach CV #s/p Cardiac Arrest - PEA hypotensive. ROSC achieved after 9 minutes - likely from cardiogenic shock EF 30-34% - off all pressors - Aortic dissection ruled out from CTA chest , a bdomen and pelvis #hx of EVAR for aortic dissection and h/o endole ak in the past - per vascular surgery -uncontrolled hypertension wean esmolol wean cardene ECHO WMA check with cardiology about need for heart cath #HTN -restart coreg -on cardene -cardio following -monitor #Hypertension norvasc hydralazine wean esmolol wean cardene GI on tube feeding Renal #JENNIFER stable started on lasix drip my cardiology gi ppx: pepcid dvt ppx: heparin Diet: tube feeds condition critical prognosis guarded CC time more than 45 minutes Reviewed chart/images Excludes all procedure time Electronically Signed by Edy Olmedo MD on at 0022 RPT #:[id number] END OF REPORT 2020-07-03 23:03:00-00:[address] [facility] ([facility] Critical Care Progress Note REPORT#:[id number] REPORT STATUS: Signed DATE:07/03/20 TIME: 2303 PATIENT: JORGE GOINS UNIT #: [id number] ROOM/BED: [address] : [birth year] AGE: 34 SEX: M ATTEND: Luis M Olmedo MD ADM AUTHOR: Edy Olmedo MD * ALL edits or amendments must be made on the [employer]/computer document * Subjective Chief Complaint: trach and peg today Objective Physical Exam Head/Eyes: atraumatic, normocephalic Cardiovascular: normal heart sounds, normal S1 S 2, normal rate and rhythm Respiratory/Chest: aerating well, clear to auscu ltation Abdomen: soft, non-tender, normal bowel sounds, no distention Extremities: no edema Neuro/RADIOTELEGRAPHIST: disoriented Diagnosis, Assessment Plan Free text A P: 34 year old male with history of aortic dissecti on s/p EVAR came in for hypertensive urgency A/P: Neuro -intubated -MRI multiple ischemic cva #AMS -MRI multifocal cva -on versed -EEG pending -neuro following Pulm -s/p intubation following cardiac arrest -on FiO2 28% -ABG this AM 7.47/29.3/118.3/21.1 -mental status not optimal for extubation Airway protection is an issue will proceed with trach CV #s/p Cardiac Arrest - PEA hypotensive. ROSC achieved after 9 minutes - likely from cardiogenic shock EF 30-34% - off all pressors - Aortic dissection ruled out from CTA chest , a bdomen and pelvis #hx of EVAR for aortic dissection and h/o endole ak in the past - per vascular surgery -uncontrolled hypertension wean esmolol wean cardene ECHO WMA check with cardiology about need for heart cath #HTN -restart coreg -on cardene -cardio following -monitor #Hypertension norvasc hydralazine wean esmolol wean cardene GI on tube feeding Renal #JENNIFER stable started on lasix drip my cardiology gi ppx: pepcid dvt ppx: heparin Diet: tube feeds condition critical prognosis guarded CC time more than 45 minutes Reviewed chart/images Excludes all procedure time Electronically Signed by Edy Olmedo MD on at 0022 RPT #:[id number] END OF REPORT 2020-07-03 22:59:00-00:00 [facility]) Cardiology Progress Note REPORT#:[id number] REPORT STATUS: Signed DATE:07/03/20 TIME: 2258 PATIENT: JORGE GOINS UNIT #: [id number] ROOM/BED: [address] : [birth year] AGE: 34 SEX: M ATTEND: Luis M Olmedo MD ADM AUTHOR: Giancarlo Phan MD * ALL edits or amendments must be made on the el [employer]/computer document * Subjective Free Text Subj Notes Free Text Subj Notes: No acute changes. Objective Physical Exam Head/Eyes: atraumatic, normocephalic, PERRL ENT: moist mucosal membranes, normal nose Neck: non-tender, supple/no meningismus Cardiovascular: CV assessment: regular rate and rhythm, no murm ur Respiratory: no distress, coarse breathsounds, m echanically ventialted Abdomen: soft, non-tender Upper extremity: UE assessment: normal capillary refill, normal temperature Lower extremity: LE assessment: normal capillary refill, normal temperature, no edema Musculoskeletal: normal inspection Neuro/RADIOTELEGRAPHIST: intubated and sedated, withdraws to p ainful stimuli Diagnosis, Assessment Plan Free Text DxA P Notes Free Text DxA P Notes: 1. Hypertensive urgency/emergency - presented with severely elevated BP requiring 2 IV infusions, subsequently suffered PEA cardiac arrest - BP very high - - hydralazine increased to 100 - increase labetalol - clonidine patch added - norvasc added - added ismn 30mg xl bid - wean down cardene and esmlol as much as we ca n - goal bp 120-140/60-80 2. Cardiac arrest - PEA in etiology, pt became hypothermic and sub sequently bradycardic 3. Type B aortic dissection s/p EVAR - has residual descending aortic dissect ion extending into iliacs. No evidence of rupture on CTA. Reviewed by vascular surgery - appreciate assitance - needs aggressive BP Control. 4. Acute on chronic systolic heart failure - likely hypertensive heart disease due to long standing elevated BP - warm and well perfused on examination - need low dose lasix to see if this helps, he i s edematous - check BNP - may need lasix drip 5. Shock - resolved - warm and well perfused on examination 6. JENNIFER on CKD stage 3 - likely secondary to fluctuation in BP - nephrology following, appreciate recommendatio ns - monitor UOP 7. Acute hypoxic respiratory failure - wean from ventilator as tolerated - per ICU te am 8. Stroke: Patient may have a shunt however I wo uld like for patient to show neurologic improvement. Would like to discuss wi th patient's family about anticoagulation pros and cons. Ultimately his biggest progn ostic indicator will be his true neurologic status. We will continue to monitor very closely Will follow. Please call if questions. [facility] Cardiology Electronically Signed by Giancarlo Phan MD on 02/13 at 2300 RPT #:[id number] END OF REPORT 2020-07-03 18:52:00-00:[address] [facility] ([facility]) Vascular Surgery Progress Note REPORT#:[id number] REPORT STATUS: Signed DATE:07/03/20 TIME: 1851 PATIENT: JORGE GOINS UNIT #: [id number] ROOM/BED: [place] [address] : 86 AGE: 34 SEX: M ATTEND: Luis M Olmedo MD ADM AUTHOR: Kleber Newby MD * ALL edits or amendments must be made on the el [employer]/computer document * Subjective Chief Complaint: Intubated and sedated at time of examination HPI Patient remains intubated now via trach. Patient reportedly moved the upper extremities spontaneously overnight acosta erin at this time he is sedated. Review of systems not possible given the patient is int ubated and sedated. Objective General VS/I O Last Documented: Result Date Time Pulse Ox 100 07/03 1615 B/P 129/68 07/03 1615 B/P Mean 91 07/03 1615 Pulse 73 07/03 1615 Resp 19 07/03 1615 Temp 98.9 07/03 1600 FiO2 30 07/03 1534 O2 Delivery Ventilator 07/03 0846 O2 Flow Rate 0 07/02 0904 24 hour I O ending at 0700: 07/03 0700 07/02 1900 Intake Total 3511.00 Output Total 3350 2450 Balance 161.00 -2450 Intake, Free 90 Water Intake, IV 3041.00 Intake, Other 180 Intake, Tube 200 Feeding Output, Stool 50 Output, Urine 3300 2450 Patient 98.7 kg Weight Weight Bed scale Measurement Method PATIENT WEIGHT: Weight (lb): 217 Weight (oz): 9.54 Weight (kg): 98.700 General appearance: sedated HEENT: anicteric Neck: supple Cardiovascular: regular rate, hypertensive despi te multiple blood pressure lowering agents Respiratory: symmetric expansion, mechanically v entilated Abdomen: soft, non-tender Genitourinary: zuñiga Extremities: palpable radial and dorsalis pedis pulses bilaterally Pulse assess: Other pulse assess: Palpable 2+ dorsalis pedis pulses bilaterally. Neuro/RADIOTELEGRAPHIST: intubated and sedated Skin: no flank or back ecchymosis Psychiatry: unable to evaluate Diagnosis, Assessment Plan Free Text A P: 34 year old male with complicated type B dissection in need of extension TEVAR when stable Keep BP less than 120mmhg, ok to allow hypertens ion to facilitate exubtation Extubate when feasible: Patient has now been tra ched, wean from vent as tolerated Will need further TEVAR when stable Vascular surgery will continue to follow closely . Electronically Signed by Kleber Newby MD on 02/13 at 1854 RPT #:[id number] END OF REPORT 2020-07-03 13:08[facility]00[facility]00[facility]00 [facility] RE[facility]#:[id number] REPORT STATUS: Signed DATE:07/03/20 TIME: 1308 PATIENT: JORGE GOINS UNIT #: [id number] ROOM/BED: [place] [address] : 86 AGE: 34 SEX: M ATTEND: Luis M Olmedo MD ADM AUTHOR: Giancarlo Izaguirre MD R2 * ALL edits or amendments must be made on the [employer] document * Subjective Comments: sedated, on vent Review of Systems Unable to obtain due to: sedated Objective General VS/I O: Vital Signs: Date Time Temp Pulse Resp B/P B/P Pulse O2 O2 Flow FiO2 Mean Ox Delivery Rate 07/03 0846 99 Ventilator 30 08 0846 72 99 30 /08 0700 99.5 /08 0700 Ventilator 30 /08 0700 72 12 137/63 91 100 01/08 0645 71 9 138/63 90 99 01/08 0630 71 10 138/63 91 99 01/08 0615 72 13 140/65 93 99 01/08 0600 73 15 138/65 93 99 01/08 0545 75 20 138/64 92 96 01/08 0530 74 24 140/65 93 100 01/08 0515 73 23 142/65 94 100 01/08 0500 74 33 141/63 91 98 01/08 0447 30 01/08 0447 73 28 142/66 95 96 01/08 0430 72 22 123/58 83 100 01/08 0415 73 23 123/60 87 99 01/08 0400 98.8 Ventilator 30 01/08 0400 72 22 123/57 82 98 01/08 0345 71 18 121/57 82 99 01/08 0330 69 22 129/62 88 99 01/08 0319 68 99 30 01/08 0315 69 19 138/66 95 99 01/08 0300 69 19 130/61 88 99 01/08 0245 70 20 131/58 87 100 01/08 0230 68 19 131/62 89 98 01/08 0215 71 22 127/59 85 98 01/08 0200 71 20 125/59 83 100 01/08 0145 70 19 128/61 88 98 01/08 0130 73 21 125/58 83 99 01/08 0115 70 24 125/56 83 99 01/08 0100 70 21 121/59 85 99 01/08 0045 68 19 124/57 84 98 01/08 0030 70 18 120/59 84 100 01/08 0025 68 98 30 01/08 0015 68 18 122/59 84 99 01/08 0000 98.8 Ventilator 30 01/08 0000 68 15 124/59 85 99 01/07 2345 69 15 118/56 81 99 01/07 2330 69 13 116/59 83 98 01/07 2315 69 15 122/57 82 97 01/07 2300 69 19 121/57 82 99 01/07 2245 70 19 120/59 85 98 01/07 2230 71 16 121/56 80 99 01/07 2215 72 20 120/59 84 99 01/07 2200 72 16 132/61 88 98 01/07 2145 72 17 131/61 88 98 01/07 2130 72 19 132/61 88 97 01/07 2115 74 22 128/59 85 97 01/07 2100 74 21 131/61 88 99 01/07 2045 74 22 131/60 87 99 01/07 2041 99 Ventilator 30 01/07 2041 74 99 30 01/07 2029 76 26 121/55 81 99 01/07 2014 76 21 135/64 92 99 01/07 1999 76 23 130/61 88 99 01/07 1945 75 29 126/60 85 99 01/07 1930 77 24 129/61 86 99 01/07 1918 77 27 98 01/07 1915 77 30 121/57 82 98 01/07 1900 Ventilator 30 01/07 1900 100.2 Ventilator 30 01/07 1900 77 52 122/57 82 98 01/07 1845 77 55 128/59 85 98 01/07 1830 77 60 123/63 85 98 01/07 1815 77 25 109/56 81 98 01/07 1800 79 35 126/58 84 98 01/07 1745 75 28 123/58 83 97 01/07 1737 100.4 01/07 1730 76 32 131/59 85 97 01/07 1725 75 26 96 01/07 1715 75 30 136/59 85 95 01/07 1702 76 95 30 01/07 1700 75 42 120/57 81 97 01/07 1645 74 37 123/56 81 98 01/07 1630 73 30 121/59 84 97 07/02 1615 72 31 121/59 85 97 07/02 1600 98.5 07/02 1600 72 39 129/61 88 98 07/02 1545 72 30 123/58 83 98 07/02 1530 73 32 118/58 82 98 07/02 1515 72 37 117/55 78 98 07/02 1500 72 32 117/57 81 98 07/02 1445 72 30 116/55 77 98 07/02 1430 71 35 116/56 81 98 07/02 1415 73 22 113/55 79 98 07/02 1400 71 36 121/59 84 98 07/02 1345 72 29 119/58 83 98 24 hour I O ending at 0700: 07/03 0700 07/02 1900 Intake Total 3511.00 Output Total 3350 2450 Balance 161.00 -2450 Intake, Free 90 Water Intake, IV 3041.00 Intake, Other 180 Intake, Tube 200 Feeding Output, Stool 50 Output, Urine 3300 2450 Patient 98.7 kg Weight Weight Bed scale Measurement Method Medications Active Meds + DC'd Last 24 Hrs Potassium Bicarbonate/Citric Acid 20 MEQ DAILY F EED-TUBE Nicardipine HCl 125 MG TITRATE IV Sodium Chloride 200 ML Potassium Chloride 100 ML ASDIR PRN IV Ibuprofen 400 MG ONCE ONE FEED-TUBE (DC) Propofol 100 ML TITRATE IV (CKD) Cefazolin Sodium 1 GM PREOP IV (CKD) Sterile Water 10 ML Perflutren Lipid Microsphere DIRECTED ONCE PRN IV Sodium Chloride DIRECTED ONCE PRN IV Sodium Chloride 5 ML ONCE PRN IV Potassium Bicarbonate/Citric Acid 20 MEQ ASDIR P O (CKD) Potassium Chloride 100 ML ASDIR PRN IV Hydralazine HCl 100 MG Q8HR PO Labetalol HCl 400 MG Q8HR PO Furosemide 100 MG Q20H IV Sodium Chloride 90 ML Isosorbide Mononitrate 30 MG BID PO Magnesium 100 ML ASDIR PRN IV Magnesium Sulfate 50 ML ASDIR PRN IV Magnesium Sulfate 100 ML ASDIR PRN IV Clonidine HCl 0.2 MG Q7D TRANSDERM (CKD) Amlodipine Besylate 5 MG Q12HR PO Aspirin 81 MG DAILY FEED-TUBE Atorvastatin Calcium 40 MG DAILY FEED-TUBE Albuterol/Ipratropium 3 ML RTQ6H INH Nicardipine HCl 250 ML TITRATE IV (DC) Dexmedetomidine HCl 400 MCG TITRATE IV (DC) Sodium Chloride 96 ML Dextrose/Water 25 ML ASDIR PRN IV Glucagon 1 MG ASDIR PRN IM Insulin Human Lispro LOW DOSE SCALE ASDIR SUBQ Sterile Water 1 ML ASDIR PRN IM Epinephrine 8 MG TITRATE IV (DC) Sodium Chloride 242 ML Norepinephrine Bitartrate 16 MG TITRATE IV (DC) Sodium Chloride 234 ML Famotidine 20 MG DAILY PO Heparin Sodium (Porcine) 5,000 UNIT Q12HR SUBQ Esmolol HCl 250 ML TITRATE IV (CKD) Physical Exam General appearance: obese, respiratory support Head/eyes: normal conjunctiva/sclera Neck: no JVD Respiratory: symmetric expansion Genitourinary: zuñiga, urine (appears pink) Extremities: pedal edema improved Musculoskeletal: normal inspection Neuro/RADIOTELEGRAPHIST: SEDATED Hemodialysis access: Type: vascath Psychiatry: unable to evaluate Results Findings/Data: Laboratory Tests 07/03 411 Blood Gas Puncture Site R Radial ABG pH (7.35 - 7.45 pH units) 7.46 H ABG pCO2 (35 - 48 mmHg) 41.9 ABG pO2 (83 - 108 mmHg) 104.5 ABG PO2/FiO2 Ratio (mm/Hg) 348.33 ABG HCO3 (21 - 28 mmol/L) 29.9 H ABG Total CO2 (22 - 29 mmol/L) 29.4 H ABG O2 Sat Calc/Denise (94 - 98 %) 98.3 H ABG Base Excess (-2 - 3 mmol/L) 5.5 H Emmanuel Test Positive Sodium (138 - 146 mmol/L) 142 Potassium (3.5 - 4.5 mmol/L) 3.2 L Ionized Calcium (1.15 - 1.33 MMOL/L) 1.11 L Respiration Rate (12 - 20 /MIN) 12 O2 Delivery Device Adult Vent Vent Mode SIMV FiO2 (%) 30 Pressure Support (cmH2O) 10 Instrument (Specimen Descript) Arterial Laboratory Tests 07/03 07/03 07/03 07/02 0533 0412 0210 2315 Chemistry Sodium (137 - 145 mmol/L) 140 Potassium (3.4 - 5.0 mmol/L) 3.1 L Chloride (98 - 107 mmol/L) 99 Carbon Dioxide (22 - 30 mmol/L) 33 H BUN (9 - 20 mg/dL) 28 H Creatinine (0.7 - 1.3 mg/dL) 1.1 Glomerular Filtr Rate (>60) 99 Glucose (74 - 106 mg/dL) 93 POC Glucose (74 - 106 MG/DL) 85 93 96 Calcium (8.4 - 10.2 mg/dL) 8.5 Magnesium (1.6 - 2.3 mg/dL) 1.9 Total Bilirubin (0.2 - 1.3 mg/dL) 1.0 Conjugated Bilirubin (0 - 0.3 mg/dL) 0 Unconjugated Bilirubin (0 - 1.1 mg/dL) 0.2 AST (15 - 46 U/L) 57 H ALT (0 - 34 U/L) 49 H Total Alk Phosphatase (38 - 126 U/L) 168 H Total Protein (6.3 - 8.2 g/dL) 6.6 Albumin (3.5 - 5.0 g/dL) 3.2 L Laboratory Tests 07/03 0210 Hematology WBC (5.0 - 12.0 x10 3/uL) 8.6 RBC (4.70 - 6.10 x10 6/uL) 3.29 L Hgb (14.0 - 18.0 g/dL) 9.4 L Hct (37.0 - 49.0 %) 30.5 L MCV (80 - 94 fL) 93 MCH (27 - 31 pg) 28.6 MCHC (33 - 37 g/dL) 30.8 L RDW (11.5 - 15.5 %) 15.3 Plt Count (130 - 400 x10 3/uL) 252 MPV (9.4 - 16.4 fL) 10.8 Neut % (Auto) (43 - 65 %) 83.0 H Lymph % (Auto) (20.5 - 45.5 %) 6.2 L Citrus % (Auto) (5.5 - 11.7 %) 7.9 Eos % (Auto) (0.9 - 2.9 %) 2.2 Baso % (Auto) (0.2 - 1.0 %) 0.2 Neut # (Auto) (2.2 - 4.8 x10 3/uL) 7.10 H Lymph # (Auto) (1.3 - 2.9 x10 3/uL) 0.53 L Citrus # (Auto) (0.3 - 0.8 x10 3/uL) 0.68 Eos # (Auto) (0.0 - 0.2 x10 3/uL) 0.19 Baso # (Auto) (0.0 - 0.1 x10 3/uL) 0.02 Immature Gran % (0.0 - 2.0 %) 0.5 Nucleated RBC % (0 - 1.0 %) 0.0 Radiology data: Recent Impressions: RADIOLOGY - XR CHEST 1 V 07/03 0454 Report Impression - Status: SIGNED Entered: 07/03/2020 0708 IMPRESSION: Interval removal of the endotracheal and upper e nteric tubes and interval placement of a tracheostomy tube and pe rcutaneous enteric tube. There is a large pneumoperitoneum. A porti on of the percutaneous enteric tube overlies the transvers e colon, and colon injury should be considered. Findings were discussed by phone with the [facility]'s nurse Betty Guy at 7:03 AM on 07/15/2020. FOR INTERNAL CODING PURPOSES ONLY RESULT CODE: CVRRN Impression By: [email or web address] Keyon Price MD RADIOLOGY - XR ABDOMEN 2V 07/03 1010 Report Impression - Status: SIGNED Entered: 07/03/2020 1037 IMPRESSION: Pneumoperitoneum likely due to recent PEG tube r epositioning. Contrast administered through the PEG tube is co ntained within the gastric lumen without evidence of leak. Impression By: [email or web address] - Denny Mohamud MD Diagnosis, Assessment Plan Free Text A P: JENNIFER hypotension AAA lactic acidosis severe metabolic acidosis Cr stable; noted increase in bicarb; will monito r lasix gtt; excellent UOP BLE u/s to assess for DVTs unremarkable discussed with cardiology about therapeu tic DVT ppx--clinical course dependent supplemental K given hypokalemia d/t lasix can pull mena catheter--no indication for HD s/p trach/peg will monitor Electronically Signed by Giancarlo Izaguirre MD R2 on at 1336 RPT #:[id number] END OF REPORT 2020-07-03 13:08:00-00:[address] [facility] ([facility]) Nephrology Progress Note REPORT#:[id number] REPORT STATUS: Signed DATE:07/03/20 TIME: 1308 PATIENT: JORGE GOINS UNIT #: [id number] [address] AGE: 34 SEX: M ATTEND: Luis M Olmedo MD ADM AUTHOR: Giancarlo Izaguirre MD R2 * ALL edits or amendments must be made on the [employer] document * Giancarlo Izaguirre 07/03/20 1308: Subjective Comments: sedated, on vent Review of Systems Unable to obtain due to: sedated Objective General VS/I O: Vital Signs: Date Time Temp Pulse Resp B/P B/P Pulse O2 O2 F low FiO2 Mean Ox Delivery Rate 07/03 0846 99 Ventilator 30 07/03 0846 72 99 30 07/03 0700 99.5 07/03 0700 Ventilator 30 / 0700 72 12 137/63 91 100 /08 0645 71 9 138/63 90 99 01/08 0630 71 10 138/63 91 99 01/08 0615 72 13 140/65 93 99 01/08 0600 73 15 138/65 93 99 01/08 0545 75 20 138/64 92 96 01/08 0530 74 24 140/65 93 100 01/08 0515 73 23 142/65 94 100 01/08 0500 74 33 141/63 91 98 01/08 0447 30 01/08 0447 73 28 142/66 95 96 01/08 0430 72 22 123/58 83 100 01/08 0415 73 23 123/60 87 99 01/08 0400 98.8 Ventilator 30 01/08 0400 72 22 123/57 82 98 01/08 0345 71 18 121/57 82 99 01/08 0330 69 22 129/62 88 99 01/08 0319 68 99 30 01/08 0315 69 19 138/66 95 99 01/08 0300 69 19 130/61 88 99 01/08 0245 70 20 131/58 87 100 01/08 0230 68 19 131/62 89 98 01/08 0215 71 22 127/59 85 98 01/08 0200 71 20 125/59 83 100 01/08 0145 70 19 128/61 88 98 01/08 0130 73 21 125/58 83 99 01/08 0115 70 24 125/56 83 99 01/08 0100 70 21 121/59 85 99 01/08 0045 68 19 124/57 84 98 01/08 0030 70 18 120/59 84 100 01/08 0025 68 98 30 01/08 0015 68 18 122/59 84 99 01/08 0000 98.8 Ventilator 30 01/08 0000 68 15 124/59 85 99 01/07 2345 69 15 118/56 81 99 01/07 2330 69 13 116/59 83 98 01/07 2315 69 15 122/57 82 97 01/07 2300 69 19 121/57 82 99 01/07 2245 70 19 120/59 85 98 01/07 2230 71 16 121/56 80 99 01/07 2215 72 20 120/59 84 99 01/07 2200 72 16 132/61 88 98 01/07 2145 72 17 131/61 88 98 01/07 2130 72 19 132/61 88 97 01/07 2115 74 22 128/59 85 97 01/07 2100 74 21 131/61 88 99 01/07 2045 74 22 131/60 87 99 01/07 2041 99 Ventilator 30 01/07 2041 74 99 30 01/07 2029 76 26 121/55 81 99 01/07 2014 76 21 135/64 92 99 01/07 1999 76 23 130/61 88 99 01/07 1945 75 29 126/60 85 99 01/07 1930 77 24 129/61 86 99 01/07 1918 77 27 98 01/07 1915 77 30 121/57 82 98 01/07 1900 Ventilator 30 01/07 1900 100.2 Ventilator 30 01/07 1900 77 52 122/57 82 98 01/07 1845 77 55 128/59 85 98 01/07 1830 77 60 123/63 85 98 01/07 1815 77 25 109/56 81 98 01/07 1800 79 35 126/58 84 98 01/07 1745 75 28 123/58 83 97 01/07 1737 100.4 01/07 1730 76 32 131/59 85 97 01/07 1725 75 26 96 01/07 1715 75 30 136/59 85 95 01/07 1702 76 95 30 01/07 1700 75 42 120/57 81 97 01/07 1645 74 37 123/56 81 98 07/02 1630 73 30 121/59 84 97 07/02 1615 72 31 121/59 85 97 07/02 1600 98.5 07/02 1600 72 39 129/61 88 98 07/02 1545 72 30 123/58 83 98 07/02 1530 73 32 118/58 82 98 07/02 1515 72 37 117/55 78 98 07/02 1500 72 32 117/57 81 98 07/02 1445 72 30 116/55 77 98 07/02 1430 71 35 116/56 81 98 07/02 1415 73 22 113/55 79 98 07/02 1400 71 36 121/59 84 98 07/02 1345 72 29 119/58 83 98 24 hour I O ending at 0700: 07/03 0700 07/02 1900 Intake Total 3511.00 Output Total 3350 2450 Balance 161.00 -2450 Intake, Free 90 Water Intake, IV 3041.00 Intake, Other 180 Intake, Tube 200 Feeding Output, Stool 50 Output, Urine 3300 2450 Patient 98.7 kg Weight Weight Bed scale Measurement Method Medications Active Meds + DC'd Last 24 Hrs Potassium Bicarbonate/Citric Acid 20 MEQ DAILY F EED-TUBE Nicardipine HCl 125 MG TITRATE IV Sodium Chloride 200 ML Potassium Chloride 100 ML ASDIR PRN IV Ibuprofen 400 MG ONCE ONE FEED-TUBE (DC) Propofol 100 ML TITRATE IV (CKD) Cefazolin Sodium 1 GM PREOP IV (CKD) Sterile Water 10 ML Perflutren Lipid Microsphere DIRECTED ONCE PRN IV Sodium Chloride DIRECTED ONCE PRN IV Sodium Chloride 5 ML ONCE PRN IV Potassium Bicarbonate/Citric Acid 20 MEQ ASDIR P O (CKD) Potassium Chloride 100 ML ASDIR PRN IV Hydralazine HCl 100 MG Q8HR PO Labetalol HCl 400 MG Q8HR PO Furosemide 100 MG Q20H IV Sodium Chloride 90 ML Isosorbide Mononitrate 30 MG BID PO Magnesium 100 ML ASDIR PRN IV Magnesium Sulfate 50 ML ASDIR PRN IV Magnesium Sulfate 100 ML ASDIR PRN IV Clonidine HCl 0.2 MG Q7D TRANSDERM (CKD) Amlodipine Besylate 5 MG Q12HR PO Aspirin 81 MG DAILY FEED-TUBE Atorvastatin Calcium 40 MG DAILY FEED-TUBE Albuterol/Ipratropium 3 ML RTQ6H INH Nicardipine HCl 250 ML TITRATE IV (DC) Dexmedetomidine HCl 400 MCG TITRATE IV (DC) Sodium Chloride 96 ML Dextrose/Water 25 ML ASDIR PRN IV Glucagon 1 MG ASDIR PRN IM Insulin Human Lispro LOW DOSE SCALE ASDIR SUBQ Sterile Water 1 ML ASDIR PRN IM Epinephrine 8 MG TITRATE IV (DC) Sodium Chloride 242 ML Norepinephrine Bitartrate 16 MG TITRATE IV (DC) Sodium Chloride 234 ML Famotidine 20 MG DAILY PO Heparin Sodium (Porcine) 5,000 UNIT Q12HR SUBQ Esmolol HCl 250 ML TITRATE IV (CKD) Physical Exam General appearance: obese, respiratory support Head/eyes: normal conjunctiva/sclera Neck: no JVD Respiratory: symmetric expansion Genitourinary: zuñiga, urine (appears pink) Extremities: pedal edema improved Musculoskeletal: normal inspection Neuro/RADIOTELEGRAPHIST: SEDATED Hemodialysis access: Type: vascath Psychiatry: unable to evaluate Results Findings/Data: Laboratory Tests 07/03 411 Blood Gas Puncture Site R Radial ABG pH (7.35 - 7.45 pH units) 7.46 H ABG pCO2 (35 - 48 mmHg) 41.9 ABG pO2 (83 - 108 mmHg) 104.5 ABG PO2/FiO2 Ratio (mm/Hg) 348.33 ABG HCO3 (21 - 28 mmol/L) 29.9 H ABG Total CO2 (22 - 29 mmol/L) 29.4 H ABG O2 Sat Calc/Denise (94 - 98 %) 98.3 H ABG Base Excess (-2 - 3 mmol/L) 5.5 H Emmanuel Test Positive Sodium (138 - 146 mmol/L) 142 Potassium (3.5 - 4.5 mmol/L) 3.2 L Ionized Calcium (1.15 - 1.33 MMOL/L) 1.11 L Respiration Rate (12 - 20 /MIN) 12 O2 Delivery Device Adult Vent Vent Mode SIMV FiO2 (%) 30 Pressure Support (cmH2O) 10 Instrument (Specimen Descript) Arterial Laboratory Tests 07/03 07/03 07/03 07/02 0533 0412 0210 2315 Chemistry Sodium (137 - 145 mmol/L) 140 Potassium (3.4 - 5.0 mmol/L) 3.1 L Chloride (98 - 107 mmol/L) 99 Carbon Dioxide (22 - 30 mmol/L) 33 H BUN (9 - 20 mg/dL) 28 H Creatinine (0.7 - 1.3 mg/dL) 1.1 Glomerular Filtr Rate (>60) 99 Glucose (74 - 106 mg/dL) 93 POC Glucose (74 - 106 MG/DL) 85 93 96 Calcium (8.4 - 10.2 mg/dL) 8.5 Magnesium (1.6 - 2.3 mg/dL) 1.9 Total Bilirubin (0.2 - 1.3 mg/dL) 1.0 Conjugated Bilirubin (0 - 0.3 mg/dL) 0 Unconjugated Bilirubin (0 - 1.1 mg/dL) 0.2 AST (15 - 46 U/L) 57 H ALT (0 - 34 U/L) 49 H Total Alk Phosphatase (38 - 126 U/L) 168 H Total Protein (6.3 - 8.2 g/dL) 6.6 Albumin (3.5 - 5.0 g/dL) 3.2 L Laboratory Tests 07/03 0210 Hematology WBC (5.0 - 12.0 x10 3/uL) 8.6 RBC (4.70 - 6.10 x10 6/uL) 3.29 L Hgb (14.0 - 18.0 g/dL) 9.4 L Hct (37.0 - 49.0 %) 30.5 L MCV (80 - 94 fL) 93 MCH (27 - 31 pg) 28.6 MCHC (33 - 37 g/dL) 30.8 L RDW (11.5 - 15.5 %) 15.3 Plt Count (130 - 400 x10 3/uL) 252 MPV (9.4 - 16.4 fL) 10.8 Neut % (Auto) (43 - 65 %) 83.0 H Lymph % (Auto) (20.5 - 45.5 %) 6.2 L Citrus % (Auto) (5.5 - 11.7 %) 7.9 Eos % (Auto) (0.9 - 2.9 %) 2.2 Baso % (Auto) (0.2 - 1.0 %) 0.2 Neut # (Auto) (2.2 - 4.8 x10 3/uL) 7.10 H Lymph # (Auto) (1.3 - 2.9 x10 3/uL) 0.53 L Citrus # (Auto) (0.3 - 0.8 x10 3/uL) 0.68 Eos # (Auto) (0.0 - 0.2 x10 3/uL) 0.19 Baso # (Auto) (0.0 - 0.1 x10 3/uL) 0.02 Immature Gran % (0.0 - 2.0 %) 0.5 Nucleated RBC % (0 - 1.0 %) 0.0 Radiology data: Recent Impressions: RADIOLOGY - XR CHEST 1 V 07/03 0454 Report Impression - Status: SIGNED Entered: 07/03/2020 0708 IMPRESSION: Interval removal of the endotracheal and upper e nteric tubes and interval placement of a tracheostomy tube and pe rcutaneous enteric tube. There is a large pneumoperitoneum. A porti on of the percutaneous enteric tube overlies the transvers e colon, and colon injury should be considered. Findings were discussed by phone with the [facility]'s nurse Betty Gyu at 7:03 AM on 07/15/2020. FOR INTERNAL CODING PURPOSES ONLY RESULT CODE: CVRRN Impression By: [email or web address] - Celestino Price MD RADIOLOGY - XR ABDOMEN 2V 07/03 1010 Report Impression - Status: SIGNED Entered: 07/03/2020 1037 IMPRESSION: Pneumoperitoneum likely due to recent PEG tube r epositioning. Contrast administered through the PEG tube is co ntained within the gastric lumen without evidence of leak. Impression By: [email or web address] - Denny Mohamud MD Diagnosis, Assessment Plan Free Text A P: JENNIFER hypotension AAA lactic acidosis severe metabolic acidosis Cr stable; noted increase in bicarb; will monito r lasix gtt; excellent UOP BLE u/s to assess for DVTs unremarkable discussed with cardiology about therapeu tic DVT ppx--clinical course dependent supplemental K given hypokalemia d/t lasix can pull mena catheter--no indication for HD s/p trach/peg will monitor Jojo York 07/03/20 1657: Attestations Attestation needed: teaching physician Physician Attestation Agree w/findings plan: Agree with the findings and plan as documented Electronically Signed by Giancarlo Izaguirre MD R2 on 01 /08/21 at 1336 at 1658 RPT #:[id number] END OF REPORT 2020-07-03 12:03:00-00:[address] [facility] ([facility]) Neurology Progress Note REPORT#:[id number] REPORT STATUS: Signed DATE:07/03/20 TIME: 1203 PATIENT: JORGE GOINS UNIT #: [id number] ROOM/BED: [address] : [birth year] AGE: 34 SEX: M ATTEND: Luis M Olmedo MD ADM AUTHOR: Jessica Parson MD * ALL edits or amendments must be made on the rimidi/computer document * Subjective Comments: nurse says that he was movin g more off of sedation earlier, though not following commands no other neuro events overnight Review of Systems Unable to obtain due to: patient mental status Objective General VS: Last Documented: Result Date Time Pulse Ox 99 07/03 845 FiO2 30 07/03 845 O2 Delivery Ventilator 07/03 845 Pulse 72 07/03 845 Temp 37.5 07/03 699 B/P 137/63 07/03 699 B/P Mean 91 07/03 699 Resp 12 07/03 699 O2 Flow Rate 0 07/02 903 PATIENT WEIGHT: Weight (lb): 217 Weight (oz): 9.54 Weight (kg): 98.700 exam intubated, sedated eyes closed pupils equal round and reactive to light no gaze deviation face symmetric no spontaneous or purposeful movements slight grimace to pain Medications Current Home Medications ALBUTEROL (PROAIR HFA 90 MCG/ACT 8.5 GM) 2 PUFF INH RTQ6H PRN PRN SOB ASPIRIN EC (ECOTRIN) 81 MG PO DAILY CARVEDILOL (COREG) 25 MG PO BID MEALS ACETAMINOPHEN/CODEINE (TYLENOL WITH CODE INE #4 300/60 MG) 1 TAB PO Q6H PRN PRN PAIN ATORVASTATIN (LIPITOR) 20 MG PO BEDTIME LOSARTAN (COZAAR) 100 MG PO DAILY NIFEdipine CC (ADALAT CC) 90 MG PO Q12HR HYDROCHLOROTHIAZIDE (HYDRODIURIL) 25 MG PO DAILY Active Meds + DC'd Last 24 Hrs Nicardipine HCl 125 MG TITRATE IV Sodium Chloride 200 ML Potassium Chloride 100 ML ASDIR PRN IV Ibuprofen 400 MG ONCE ONE FEED-TUBE (DC) Propofol 100 ML TITRATE IV (CKD) Cefazolin Sodium 1 GM PREOP IV (CKD) Sterile Water 10 ML Perflutren Lipid Microsphere DIRECTED ONCE PRN IV Sodium Chloride DIRECTED ONCE PRN IV Sodium Chloride 5 ML ONCE PRN IV Potassium Bicarbonate/Citric Acid 20 MEQ ASDIR P O (CKD) Potassium Chloride 100 ML ASDIR PRN IV Hydralazine HCl 100 MG Q8HR PO Labetalol HCl 400 MG Q8HR PO Furosemide 100 MG Q20H IV Sodium Chloride 90 ML Isosorbide Mononitrate 30 MG BID PO Magnesium 100 ML ASDIR PRN IV Magnesium Sulfate 50 ML ASDIR PRN IV Magnesium Sulfate 100 ML ASDIR PRN IV Clonidine HCl 0.2 MG Q7D TRANSDERM (CKD) Amlodipine Besylate 5 MG Q12HR PO Aspirin 81 MG DAILY FEED-TUBE Atorvastatin Calcium 40 MG DAILY FEED-TUBE Albuterol/Ipratropium 3 ML RTQ6H INH Nicardipine HCl 250 ML TITRATE IV (DC) Dexmedetomidine HCl 400 MCG TITRATE IV (DC) Sodium Chloride 96 ML Dextrose/Water 25 ML ASDIR PRN IV Glucagon 1 MG ASDIR PRN IM Insulin Human Lispro LOW DOSE SCALE ASDIR SUBQ Sterile Water 1 ML ASDIR PRN IM Epinephrine 8 MG TITRATE IV (DC) Sodium Chloride 242 ML Norepinephrine Bitartrate 16 MG TITRATE IV (DC) Sodium Chloride 234 ML Famotidine 20 MG DAILY PO Heparin Sodium (Porcine) 5,000 UNIT Q12HR SUBQ Esmolol HCl 250 ML TITRATE IV (CKD) Results Findings/Data: Laboratory Tests 07/03 411 Blood Gas Puncture Site R Radial ABG pH (7.35 - 7.45 pH units) 7.46 H ABG pCO2 (35 - 48 mmHg) 41.9 ABG pO2 (83 - 108 mmHg) 104.5 ABG PO2/FiO2 Ratio (mm/Hg) 348.33 ABG HCO3 (21 - 28 mmol/L) 29.9 H ABG Total CO2 (22 - 29 mmol/L) 29.4 H ABG O2 Sat Calc/Denise (94 - 98 %) 98.3 H ABG Base Excess (-2 - 3 mmol/L) 5.5 H Emmanuel Test Positive Sodium (138 - 146 mmol/L) 142 Potassium (3.5 - 4.5 mmol/L) 3.2 L Ionized Calcium (1.15 - 1.33 MMOL/L) 1.11 L Respiration Rate (12 - 20 /MIN) 12 O2 Delivery Device Adult Vent Vent Mode SIMV FiO2 (%) 30 Pressure Support (cmH2O) 10 Instrument (Specimen Descript) Arterial Laboratory Tests 07/03 07/03 07/03 07/02 0533 0412 0210 2315 Chemistry Sodium (137 - 145 mmol/L) 140 Potassium (3.4 - 5.0 mmol/L) 3.1 L Chloride (98 - 107 mmol/L) 99 Carbon Dioxide (22 - 30 mmol/L) 33 H BUN (9 - 20 mg/dL) 28 H Creatinine (0.7 - 1.3 mg/dL) 1.1 Glomerular Filtr Rate (>60) 99 Glucose (74 - 106 mg/dL) 93 POC Glucose (74 - 106 MG/DL) 85 93 96 Calcium (8.4 - 10.2 mg/dL) 8.5 Magnesium (1.6 - 2.3 mg/dL) 1.9 Total Bilirubin (0.2 - 1.3 mg/dL) 1.0 Conjugated Bilirubin (0 - 0.3 mg/dL) 0 Unconjugated Bilirubin (0 - 1.1 mg/dL) 0.2 AST (15 - 46 U/L) 57 H ALT (0 - 34 U/L) 49 H Total Alk Phosphatase (38 - 126 U/L) 168 H Total Protein (6.3 - 8.2 g/dL) 6.6 Albumin (3.5 - 5.0 g/dL) 3.2 L Laboratory Tests 07/03 209 Hematology WBC (5.0 - 12.0 x10 3/uL) 8.6 RBC (4.70 - 6.10 x10 6/uL) 3.29 L Hgb (14.0 - 18.0 g/dL) 9.4 L Hct (37.0 - 49.0 %) 30.5 L MCV (80 - 94 fL) 93 MCH (27 - 31 pg) 28.6 MCHC (33 - 37 g/dL) 30.8 L RDW (11.5 - 15.5 %) 15.3 Plt Count (130 - 400 x10 3/uL) 252 MPV (9.4 - 16.4 fL) 10.8 Neut % (Auto) (43 - 65 %) 83.0 H Lymph % (Auto) (20.5 - 45.5 %) 6.2 L Citrus % (Auto) (5.5 - 11.7 %) 7.9 Eos % (Auto) (0.9 - 2.9 %) 2.2 Baso % (Auto) (0.2 - 1.0 %) 0.2 Neut # (Auto) (2.2 - 4.8 x10 3/uL) 7.10 H Lymph # (Auto) (1.3 - 2.9 x10 3/uL) 0.53 L Citrus # (Auto) (0.3 - 0.8 x10 3/uL) 0.68 Eos # (Auto) (0.0 - 0.2 x10 3/uL) 0.19 Baso # (Auto) (0.0 - 0.1 x10 3/uL) 0.02 Immature Gran % (0.0 - 2.0 %) 0.5 Nucleated RBC % (0 - 1.0 %) 0.0 Radiology Data: Recent Impressions: ULTRASOUND - DUP VEIN DERREK 07/02 1311 Report Impression - Status: SIGNED Entered: 07/02/2020 1509 IMPRESSION: No DVT in the visualized venous structures of th e bilateral lower extremities. Impression By: [email or web address] Keyon Mohamud MD RADIOLOGY - XR CHEST 1 V 07/03 0454 Report Impression - Status: SIGNED Entered: 07/03/2020 0708 IMPRESSION: Interval removal of the endotracheal and upper e nteric tubes and interval placement of a tracheostomy tube and pe rcutaneous enteric tube. There is a large pneumoperitoneum. A porti on of the percutaneous enteric tube overlies the transvers e colon, and colon injury should be considered. Findings were discussed by phone with the [facility]'s nurse Betty Guy at 7:03 AM on 07/15/2020. FOR INTERNAL CODING PURPOSES ONLY RESULT CODE: CVRRN Impression By: [email or web address] Keyon Price MD RADIOLOGY - XR ABDOMEN 2V 07/03 1010 Report Impression - Status: SIGNED Entered: 07/03/2020 1037 IMPRESSION: Pneumoperitoneum likely due to recent PEG tube r epositioning. Contrast administered through the PEG tube is co ntained within the gastric lumen without evidence of leak. Impression By: [email or web address] - Denny Mohamud MD Diagnosis, Assessment Plan Free Text A P: Assessment 1. Acute encephalopathy - multifactorial - metab olic/hypertensive emergency/ acute stroke 2. Acute ischemic strokes, suspect embolic sourc e, + PFO, b/l lower extremity dopplers negative 3. s/p PEA arrest 06/11/20 4. hypertensive emergency - still requiring akua rdipine drip and antihypertensives being adjusted 5. acute respiratory failure requiring intubatio n 6. complicated type b aortic dissection, in need of extension TEVAR when stable per vascular surgery Plan blood pressure control continue current care plan asa and statin consider PFO closure in future when medically st abilized d/w nurse Electronically Signed by Jessica Parson MD on at 0740 RPT #:[id number] END OF REPORT 2020-07-02 21:28:00-00:[address] [facility] ([facility]) Cardiology Progress Note REPORT#:[id number] REPORT STATUS: Signed DATE:07/02/20 TIME: 2127 PATIENT: JORGE GOINS UNIT #: [id number] ROOM/BED: [address] : [birth year] AGE: 34 SEX: M ATTEND: Luis M Olmedo MD ADM AUTHOR: Giancarlo Phan MD * ALL edits or amendments must be made on the el [employer]ronic/computer document * Subjective Free Text Subj Notes Free Text Subj Notes: Patient underwent tract and PEG yesterday. No re al changes. Objective General VS/I O: 24 hour I O ending at 0700: 07/02 0700 07/01 1900 Intake Total 3186.00 2590.35 Output Total 4600 4775 Balance -1414.00 -2184.65 Intake, Free 300 Water Intake, IV 2866.00 2590.35 Intake, Tube 20 Feeding Output, Stool 50 100 Output, Urine 4550 4675 Patient 99.8 kg Weight Weight Bed scale Measurement Method Vital Signs: Date Time Temp Pulse Resp B/P B/P Pulse O2 O2 F low FiO2 Mean Ox Delivery Rate 07/02 2040 99 Ventilator 30 07/02 2040 74 99 30 07/02 1917 77 27 98 01/07 1914 77 30 121/57 82 98 01/07 1900 Ventilator 30 07/02 1900 37.9 Ventilator 30 07/02 1900 77 52 122/57 82 98 01/07 1845 77 55 128/59 85 98 01/07 1830 77 60 123/63 85 98 01/07 1815 77 25 109/56 81 98 01/07 1800 79 35 126/58 84 98 01/07 1745 75 28 123/58 83 97 01/07 1737 38.0 01/07 1730 76 32 131/59 85 97 01/07 1725 75 26 96 01/07 1715 75 30 136/59 85 95 01/07 1702 76 95 30 01/07 1700 75 42 120/57 81 97 01/07 1645 74 37 123/56 81 98 01/07 1630 73 30 121/59 84 97 01/07 1615 72 31 121/59 85 97 01/07 1600 36.9 01/07 1600 72 39 129/61 88 98 01/07 1545 72 30 123/58 83 98 01/07 1530 73 32 118/58 82 98 01/07 1515 72 37 117/55 78 98 01/07 1500 72 32 117/57 81 98 01/07 1445 72 30 116/55 77 98 01/07 1430 71 35 116/56 81 98 01/07 1415 73 22 113/55 79 98 01/07 1400 71 36 121/59 84 98 01/07 1345 72 29 119/58 83 98 01/07 1330 71 36 125/56 81 98 01/07 1315 71 34 124/58 83 99 01/07 1300 71 31 123/58 84 100 01/07 1250 71 100 30 01/07 1245 70 30 119/55 81 99 01/07 1230 71 27 122/57 82 100 01/07 1215 71 35 123/58 82 100 01/07 1200 36.5 01/07 1200 72 37 118/57 82 99 01/07 1145 72 38 122/55 81 99 01/07 1130 72 24 119/58 83 98 01/07 1115 69 26 124/56 81 98 01/07 1100 70 29 121/59 84 99 01/07 1045 69 21 123/57 82 98 01/07 1030 69 20 120/56 80 98 01/07 1015 69 20 120/56 80 98 01/07 1000 71 22 121/57 82 98 01/07 0954 70 34 119/58 82 97 01/07 0945 70 21 121/56 80 96 01/07 0930 71 21 113/53 78 100 01/07 0925 70 11 121/58 84 100 01/07 0915 70 22 120/58 83 100 01/07 0904 100 Ventilator 0 30 01/07 0904 69 99 30 01/07 0900 69 3 118/57 82 99 01/07 0845 70 9 121/58 84 99 01/07 0830 70 18 122/56 81 100 01/07 0815 71 17 120/58 84 99 01/07 0800 71 17 121/58 85 100 01/07 0750 36.7 01/07 0750 Ventilator 30 01/07 0745 71 15 122/60 86 100 01/07 0730 71 19 118/57 82 100 01/07 0715 71 19 121/56 80 100 01/07 0700 71 21 117/59 83 100 01/07 0645 71 22 116/58 82 100 01/07 0630 70 14 114/56 80 100 01/07 0615 70 18 118/59 83 100 01/07 0600 71 15 118/59 85 100 01/07 0545 71 22 120/58 81 100 01/07 0530 71 21 124/58 84 100 01/07 0515 70 19 126/61 86 100 01/07 0500 71 20 131/61 88 100 01/07 0445 70 22 131/64 89 100 01/07 0430 70 17 126/66 89 100 01/07 0415 69 21 130/62 89 100 01/07 0400 37.2 Ventilator 30 01/07 0400 68 17 130/63 90 100 01/07 0345 68 23 129/62 88 100 01/07 0330 68 20 127/60 87 100 01/07 0324 68 100 30 01/07 0315 68 22 124/58 84 100 01/07 0300 68 18 131/62 89 100 01/07 0245 69 01/07 0230 69 / 0215 69 20 124/61 85 100 01/07 0200 68 18 128/63 88 100 01/07 0145 68 23 130/63 89 100 01/07 0130 68 24 124/60 85 100 01/07 0115 68 21 127/62 87 100 01/07 0100 68 21 126/60 86 100 01/07 0045 68 19 121/58 83 100 01/07 0030 68 19 126/60 86 100 01/07 0015 69 23 123/59 84 100 01/07 0000 36.9 Ventilator 30 01/07 0000 69 23 125/60 85 100 01/07 0000 69 100 30 01/06 2345 69 23 123/60 84 100 01/06 2330 68 22 117/60 83 100 /06 2315 69 24 117/59 83 99 01/06 2300 69 24 122/60 83 100 01/06 2245 69 20 117/57 80 100 01/06 2230 69 23 119/55 79 97 /06 2215 69 23 117/55 78 99 01/06 2200 70 23 118/56 80 99 01/06 2145 70 25 117/55 78 100 PATIENT WEIGHT: Weight (lb): 220 Weight (oz): 0.34 Weight (kg): 99.800 Physical Exam Head/Eyes: atraumatic, normocephalic, PERRL ENT: moist mucosal membranes, normal nose Neck: non-tender, supple/no meningismus Cardiovascular: CV assessment: regular rate and rhythm, no murm ur Respiratory: no distress, coarse breathsounds, m echanically ventialted Abdomen: soft, non-tender Upper extremity: UE assessment: normal capillary refill, normal temperature Lower extremity: LE assessment: normal capillary refill, normal temperature, no edema Musculoskeletal: normal inspection Neuro/RADIOTELEGRAPHIST: intubated and sedated, withdraws to p ainful stimuli Diagnosis, Assessment Plan Free Text DxA P Notes Free Text DxA P Notes: 1. Hypertensive urgency/emergency - presented with severely elevated BP requiring 2 IV infusions, subsequently suffered PEA cardiac arrest - BP very high - - hydralazine increased to 100 - increase labetalol - clonidine patch added - norvasc added - added ismn 30mg xl bid - wean down cardene and esmlol as much as we ca n - goal bp 120-140/60-80 2. Cardiac arrest - PEA in etiology, pt became hypothermic and sub sequently bradycardic 3. Type B aortic dissection s/p EVAR - has residual descending aortic dissect ion extending into iliacs. No evidence of rupture on CTA. Reviewed by vascular surgery - appreciate assitance - needs aggressive BP Control. 4. Acute on chronic systolic heart failure - likely hypertensive heart disease due to long standing elevated BP - warm and well perfused on examination - need low dose lasix to see if this helps, he i s edematous - check BNP - may need lasix drip 5. Shock - resolved - warm and well perfused on examination 6. JENNIFER on CKD stage 3 - likely secondary to fluctuation in BP - nephrology following, appreciate recommendatio ns - monitor UOP 7. Acute hypoxic respiratory failure - wean from ventilator as tolerated - per ICU te am 8. Stroke: Patient may have a shunt however I wo uld like for patient to show neurologic improvement. Would like to discuss wi th patient's family about anticoagulation pup pros and cons. Given current inability to wean patient will und ergo trach and PEG tube placement. Ultimately his biggest prognostic ind icator will be his true neurologic status. We will continue to monitor v adalberto closely Will follow. Please call if questions. [facility] Cardiology Electronically Signed by Giancarlo Phan MD on 01/13 at 2134 RPT #:[id number] END OF REPORT 2020-07-02 21:07:00-00:00 [facility]) Vascular Surgery Progress Note REPORT#:[id number] REPORT STATUS: Signed DATE:07/02/20 TIME: 2106 PATIENT: JORGE GOINS UNIT #: [id number] ROOM/BED: [address] : [birth year] AGE: 34 SEX: M ATTEND: Luis M Olmedo MD ADM AUTHOR: Kleber Newby MD * ALL edits or amendments must be made on the el [employer]/computer document * Subjective Chief Complaint: Intubated and sedated at time of examination HPI Patient is now status post trach and PEG . Patient remains sedated and with the sedation held the nurses report that he withdraw s to pain however does not appear to have other any full movements at this time. Patient remains on multiple p.o. blood pressure medications as well as high doses of Cardene esmolol. Patient remains critically ill and mariila ins sedated and intubated and thus cannot participate in review of systems. Objective General VS/I O Last Documented: Result Date Time Pulse Ox 99 07/02 2040 FiO2 30 07/02 2040 O2 Delivery Ventilator 07/02 2040 Pulse 74 07/02 2040 Resp 27 07/02 1917 B/P 121/57 07/02 1914 B/P Mean 82 07/02 1914 Temp 100.2 07/02 1899 O2 Flow Rate 0 07/02 0904 24 hour I O ending at 0700: 07/02 0707/01 1900 Intake Total 3186.00 2590.35 Output Total 4600 4775 Balance -1414.00 -2184.65 Intake, Free 300 Water Intake, IV 2866.00 2590.35 Intake, Tube 20 Feeding Output, Stool 50 100 Output, Urine 4550 4675 Patient 99.8 kg Weight Weight Bed scale Measurement Method PATIENT WEIGHT: Weight (lb): 220 Weight (oz): 0.34 Weight (kg): 99.800 General appearance: sedated HEENT: anicteric Neck: supple Cardiovascular: regular rate, hypertensive despi te multiple blood pressure lowering agents Respiratory: symmetric expansion, mechanicallt v entilated Abdomen: soft, non-tender Genitourinary: zuñiga Extremities: palpable radial and dorsalis pedis pulses bilaterally Neuro/RADIOTELEGRAPHIST: intubated and sedated Skin: no flank or back ecchymosis Psychiatry: unable to evaluate Current Medications Medications: Active Meds + DC'd Last 24 Hrs Ibuprofen 400 MG ONCE ONE FEED-TUBE (DC) Propofol 100 ML TITRATE IV (CKD) Cefazolin Sodium 1 GM PREOP IV (CKD) Sterile Water 10 ML Perflutren Lipid Microsphere DIRECTED ONCE PRN IV Sodium Chloride DIRECTED ONCE PRN IV Sodium Chloride 5 ML ONCE PRN IV Potassium Bicarbonate/Citric Acid 20 MEQ ASDIR P O (CKD) Potassium Chloride 100 ML ASDIR PRN IV Hydralazine HCl 100 MG Q8HR PO Labetalol HCl 400 MG Q8HR PO Furosemide 100 MG Q20H IV Sodium Chloride 90 ML Isosorbide Mononitrate 30 MG BID PO Magnesium 100 ML ASDIR PRN IV Magnesium Sulfate 50 ML ASDIR PRN IV Magnesium Sulfate 100 ML ASDIR PRN IV Clonidine HCl 0.2 MG Q7D TRANSDERM (CKD) Amlodipine Besylate 5 MG Q12HR PO Aspirin 81 MG DAILY FEED-TUBE Atorvastatin Calcium 40 MG DAILY FEED-TUBE Albuterol/Ipratropium 3 ML RTQ6H INH Nicardipine HCl 250 ML TITRATE IV Dexmedetomidine HCl 400 MCG TITRATE IV (DC) Sodium Chloride 96 ML Dextrose/Water 25 ML ASDIR PRN IV Glucagon 1 MG ASDIR PRN IM Insulin Human Lispro LOW DOSE SCALE ASDIR SUBQ Sterile Water 1 ML ASDIR PRN IM Epinephrine 8 MG TITRATE IV (DC) Sodium Chloride 242 ML Norepinephrine Bitartrate 16 MG TITRATE IV (DC) Sodium Chloride 234 ML Famotidine 20 MG DAILY PO Heparin Sodium (Porcine) 5,000 UNIT Q12HR SUBQ Esmolol HCl 250 ML TITRATE IV (CKD) Diagnosis, Assessment Plan Free Text A P: 34 year old male with complicated type B dissection in need of extension TEVAR when stable Keep BP less than 120mmhg, ok to allow hypertens ion to facilitate exubtation Extubate when feasible: Patient has now been tra ched, wean from vent as tolerated Will need further TEVAR when stable Vascular surgery will continue to follow closely . Electronically Signed by Kleber Newby MD on 01/13 at 2109 RPT #:[id number] END OF REPORT 2020-07-02 15:04:00-00:00 [facility] ([facility]) Neurology Progress Note REPORT#:[id number] REPORT STATUS: Signed DATE:07/02/20 TIME: 1504 PATIENT: JORGE GOINS UNIT #: [id number] ROOM/BED: [address] : [birth year] AGE: 34 SEX: M ATTEND: Luis M Olmedo MD ADM AUTHOR: Jessica Parson MD * ALL edits or amendments must be made on the el [employer]/computer document * Subjective Chief Complaint: Lethargy and AMS Comments: no acute overnight neurologic events still with high blood pressure requiring nicardi pine drip patient cannot provide history Review of Systems Unable to obtain due to: patient unresponsive Objective General VS: Last Documented: Result Date Time Pulse Ox 100 01/07 1250 FiO2 30 07/02 1250 Pulse 71 07/02 1250 Temp 36.5 07/02 1200 O2 Delivery Ventilator 07/02 903 O2 Flow Rate 0 07/02 903 B/P 116/58 07/02 644 B/P Mean 82 07/02 644 Resp 22 07/02 644 PATIENT WEIGHT: Weight (lb): 220 Weight (oz): 0.34 Weight (kg): 99.800 exam intubated, sedated head is normal cephalic atraumatic cvs- regular rate respiratory support neurologic- unresponseive but on sedation eyes closed pupils equal round and reactive to light no gaze deviation face symmetric no spontaneous or purposeful movements Medications Current Home Medications ALBUTEROL (PROAIR HFA 90 MCG/ACT 8.5 GM) 2 PUFF INH RTQ6H PRN PRN SOB ASPIRIN EC (ECOTRIN) 81 MG PO DAILY CARVEDILOL (COREG) 25 MG PO BID MEALS ACETAMINOPHEN/CODEINE (TYLENOL WITH CODE INE #4 300/60 MG) 1 TAB PO Q6H PRN PRN PAIN ATORVASTATIN (LIPITOR) 20 MG PO BEDTIME LOSARTAN (COZAAR) 100 MG PO DAILY NIFEdipine CC (ADALAT CC) 90 MG PO Q12HR HYDROCHLOROTHIAZIDE (HYDRODIURIL) 25 MG PO DAILY Active Meds + DC'd Last 24 Hrs Potassium Bicarbonate/Citric Acid 40 MEQ DAILY P O Isosorbide Mononitrate 30 MG BID FEED-TUBE Albumin Human 500 ML .STK-MED ONE IV (DC) Potassium Bicarbonate/Citric Acid 20 MEQ DAILY F EED-TUBE Nicardipine HCl 125 MG TITRATE IV Sodium Chloride 200 ML Potassium Chloride 100 ML ASDIR PRN IV Propofol 100 ML TITRATE IV (CKD) Cefazolin Sodium 1 GM PREOP IV (DC) Sterile Water 10 ML Perflutren Lipid Microsphere DIRECTED ONCE PRN IV Sodium Chloride DIRECTED ONCE PRN IV Sodium Chloride 5 ML ONCE PRN IV Potassium Bicarbonate/Citric Acid 20 MEQ ASDIR P O (CKD) Potassium Chloride 100 ML ASDIR PRN IV Hydralazine HCl 100 MG Q8HR PO Labetalol HCl 400 MG Q8HR PO Furosemide 100 MG Q20H IV Sodium Chloride 90 ML Isosorbide Mononitrate 30 MG BID PO (DC) Magnesium 100 ML ASDIR PRN IV Magnesium Sulfate 50 ML ASDIR PRN IV Magnesium Sulfate 100 ML ASDIR PRN IV Clonidine HCl 0.2 MG Q7D TRANSDERM (CKD) Amlodipine Besylate 5 MG Q12HR PO Aspirin 81 MG DAILY FEED-TUBE Atorvastatin Calcium 40 MG DAILY FEED-TUBE Albuterol/Ipratropium 3 ML RTQ6H INH Dextrose/Water 25 ML ASDIR PRN IV Glucagon 1 MG ASDIR PRN IM Insulin Human Lispro LOW DOSE SCALE ASDIR SUBQ Sterile Water 1 ML ASDIR PRN IM Famotidine 20 MG DAILY PO Heparin Sodium (Porcine) 5,000 UNIT Q12HR SUBQ Esmolol HCl 250 ML TITRATE IV (CKD) Diagnosis, Assessment Plan Free Text A P: 1. Acute encephalopathy - multifactorial - metab olic/hypertensive emergency/ acute stroke 2. Acute ischemic strokes, suspect embolic sourc e, + PFO 06/29, b/l lower extremity dopplers negative 07/02 3. s/p PEA arrest 06/11/20 4. hypertensive emergency - still requiring akua rdipine drip and antihypertensives being adjusted 5. acute respiratory failure requiring intubatio n 6. complicated type b aortic dissection, in need of extension TEVAR when stable per vascular surgery Plan blood pressure control continue current care plan asa and statin consider PFO closure in future when medically st abilized d/w staff Electronically Signed by Jessica Parson MD on at 1330 RPT #:[id number] END OF REPORT 2020-07-02 09:32:00-00:[address] [facility] ([facility]) Nephrology Progress Note REPORT#:[id number] REPORT STATUS: Signed DATE:07/02/20 TIME: 931 PATIENT: JORGE GOINS UNIT #: [id number] ROOM/BED: [address] : [birth year] AGE: 34 SEX: M ATTEND: Luis M Olmedo MD ADM AUTHOR: Giancarlo Izaguirre MD R2 * ALL edits or amendments must be made on the el [employer]/computer document * Subjective Comments: remains intubated, on propofol grimaces to pain UOP 9L Review of Systems Unable to obtain due to: intubated/sedated Objective General VS/I O: Vital Signs: Date Time Temp Pulse Resp B/P B/P Pulse O2 O2 Fl ow FiO2 Mean Ox Delivery Rate 07/02 0904 100 Ventilator 0 30 01/ 0904 69 99 30 01/07 0750 98.1 01/07 0750 Ventilator 30 / 0645 71 22 116/58 82 100 01/07 0630 70 14 114/56 80 100 01/07 0615 70 18 118/59 83 100 01/07 0600 71 15 118/59 85 100 01/07 0545 71 22 120/58 81 100 01/07 0530 71 21 124/58 84 100 01/07 0515 70 19 126/61 86 100 01/07 0500 71 20 131/61 88 100 01/07 0445 70 22 131/64 89 100 01/07 0430 70 17 126/66 89 100 01/07 0415 69 21 130/62 89 100 01/07 0400 99.0 Ventilator 30 01/07 0400 68 17 130/63 90 100 01/07 0345 68 23 129/62 88 100 01/07 0330 68 20 127/60 87 100 01/07 0324 68 100 30 01/07 0315 68 22 124/58 84 100 01/07 0300 68 18 131/62 89 100 01/07 0245 69 01/07 0230 69 01/07 0215 69 20 124/61 85 100 01/07 0200 68 18 128/63 88 100 01/07 0145 68 23 130/63 89 100 01/07 0130 68 24 124/60 85 100 01/07 0115 68 21 127/62 87 100 01/07 0100 68 21 126/60 86 100 01/07 0045 68 19 121/58 83 100 01/07 0030 68 19 126/60 86 100 01/07 0015 69 23 123/59 84 100 01/07 0000 98.5 Ventilator 30 01/07 0000 69 23 125/60 85 100 01/07 0000 69 100 30 01/06 2345 69 23 123/60 84 100 01/06 2330 68 22 117/60 83 100 01/06 2315 69 24 117/59 83 99 01/06 2300 69 24 122/60 83 100 01/06 2245 69 20 117/57 80 100 01/06 2230 69 23 119/55 79 97 01/06 2215 69 23 117/55 78 99 01/06 2200 70 23 118/56 80 99 01/06 2145 70 25 117/55 78 100 01/06 2130 72 25 116/58 81 100 01/06 2115 72 26 119/56 78 100 01/06 2100 72 26 118/57 82 100 01/06 5 72 18 128/62 88 100 01/06 2031 98 Ventilator 30 01/06 2031 73 98 30 01/06 2029 72 28 124/67 87 98 01/06 2014 72 20 115/69 84 99 01/06 1999 98.7 Ventilator 30 01/06 1999 73 28 129/62 88 100 01/06 1945 74 31 128/62 89 99 01/06 1938 Ventilator 30 01/06 1930 72 5 128/58 84 100 01/06 1915 72 6 131/60 86 100 01/06 1900 72 10 127/58 83 100 01/06 1848 72 4 96 01/06 1845 72 0 128/58 84 96 01/06 1838 72 96 01/06 1830 73 124/57 82 97 01/06 1816 73 19 100 01/06 1815 73 14 123/56 80 100 01/06 1800 74 7 120/57 80 100 01/06 1749 74 18 100 01/06 1745 73 15 121/59 85 100 01/06 1730 74 30 121/59 83 100 01/06 1715 73 4 120/59 83 100 01/06 1700 74 9 122/58 83 100 01/06 1659 74 01/06 1645 74 16 121/55 79 100 01/06 1636 73 8 116/57 81 100 01/06 1633 72 7 121/55 80 100 01/06 1630 72 14 120/58 83 100 01/06 1627 72 8 125/57 82 100 01/06 1624 72 6 125/57 82 100 01/06 1621 73 7 125/57 82 100 01/06 1620 73 4 100 01/06 1618 73 9 126/59 85 100 01/06 1615 74 18 120/55 79 100 01/06 1612 72 6 119/56 80 99 01/06 1609 72 10 125/58 83 99 01/06 1606 124/58 83 01/06 1603 72 129/60 87 98 01/06 1600 71 15 128/60 86 98 01/06 1557 71 5 128/60 86 98 01/06 1554 71 6 129/61 87 98 01/06 1551 71 13 134/63 90 98 01/06 1548 71 8 129/60 86 98 01/06 1545 71 5 131/60 87 98 01/06 1542 71 7 129/60 86 98 01/06 1539 71 8 131/61 88 98 01/06 1536 71 11 133/61 88 97 01/06 1533 72 10 130/60 87 98 01/06 1530 72 2 133/62 89 97 01/06 1528 99.2 97 30 Tracheostomy collar 01/06 1527 72 0 128/60 87 97 01/06 1524 72 9 130/61 88 98 01/06 1521 72 0 127/60 86 99 01/06 1518 72 0 128/60 86 100 01/06 1515 72 10 128/60 87 99 01/06 1512 72 15 126/58 84 99 01/06 1509 72 11 129/61 86 100 01/06 1506 72 11 130/60 86 99 01/06 1503 72 8 130/60 86 99 01/06 1501 72 13 99 01/06 1500 72 9 136/63 90 99 01/06 1457 72 12 129/62 88 99 01/06 1454 72 8 127/59 85 99 01/06 1451 72 11 128/60 86 100 01/06 1448 72 14 127/59 85 100 01/06 1445 71 18 131/60 87 100 01/06 1442 71 10 134/62 87 100 01/06 1439 71 5 131/60 87 100 01/06 1436 71 2 129/61 87 100 01/06 1433 71 13 130/60 87 100 01/06 1430 71 18 127/59 85 100 01/06 1427 71 11 128/60 86 100 01/06 1424 71 0 126/59 85 100 01/06 1421 71 13 123/56 81 100 01/06 1418 71 16 127/58 84 100 01/06 1415 71 18 126/57 82 100 01/06 1413 71 100 30 01/06 1412 71 10 125/60 83 100 01/06 1409 71 130/62 87 100 01/06 1406 71 129/61 88 100 01/06 1403 71 9 125/59 85 99 01/06 1400 71 128/59 85 99 01/06 1357 70 127/58 84 100 01/06 1354 70 7 133/60 87 99 01/06 1351 72 123/60 83 99 01/06 1348 72 24 121/59 83 89 01/06 1345 69 125/60 84 98 01/06 1342 69 125/59 85 98 01/06 1339 69 121/58 82 97 01/06 1336 70 12 122/59 82 97 01/06 1333 70 22 122/57 82 97 01/06 1330 71 5 119/55 79 97 01/06 1327 71 119/55 79 98 01/06 1324 71 13 120/56 80 97 01/06 1321 71 116/56 79 97 01/06 1318 71 19 113/58 81 97 01/06 1316 71 15 97 01/06 1315 71 0 119/56 80 97 01/06 1314 71 0 97 01/06 1312 71 0 115/58 79 97 01/06 1309 74 14 120/61 86 97 01/06 1306 72 16 119/56 81 98 01/06 1303 72 13 125/61 85 97 01/06 1300 72 13 125/65 87 92 01/06 1257 72 25 125/68 87 97 01/06 1255 72 9 98 01/06 1254 74 12 123/62 85 99 01/06 1251 75 26 129/62 88 100 01/06 1245 75 25 130/61 86 100 01/06 1242 75 12 100 01/06 1230 76 21 133/61 88 100 01/06 1215 77 6 133/60 87 100 01/06 1200 77 22 129/60 87 99 01/06 1159 77 22 100 01/06 1158 99.5 100 Ventilator 30 01/06 1156 77 15 100 01/06 1145 78 19 131/62 89 99 01/06 1130 78 15 130/60 86 99 01/06 1115 78 15 131/59 85 99 01/06 1106 78 15 99 01/06 1100 78 18 129/58 84 99 01/06 1046 78 15 99 01/06 1045 78 15 122/56 81 99 01/06 1042 78 10 99 01/06 1030 78 7 133/62 89 99 01/06 1015 79 11 129/60 86 99 24 hour I O ending at 0700: 07/02 0700 /06 1900 Intake Total 3186.00 2590.35 Output Total 4600 4775 Balance -1414.00 -2184.65 Intake, Free 300 Water Intake, IV 2866.00 2590.35 Intake, Tube 20 Feeding Output, Stool 50 100 Output, Urine 4550 4675 Patient 99.8 kg Weight Weight Bed scale Measurement Method Medications Active Meds + DC'd Last 24 Hrs Propofol 100 ML TITRATE IV (CKD) Propofol 0 .STK-MED ONE .ROUTE (DC) Cefazolin Sodium 1 GM PREOP IV (CKD) Sterile Water 10 ML Fentanyl Citrate 0 .STK-MED ONE .ROUTE (DC) Midazolam HCl 0 .STK-MED ONE .ROUTE (DC) Propofol 0 .STK-MED ONE .ROUTE (DC) Perflutren Lipid Microsphere DIRECTED ONCE PRN IV Sodium Chloride DIRECTED ONCE PRN IV Sodium Chloride 5 ML ONCE PRN IV Potassium Bicarbonate/Citric Acid 20 MEQ ASDIR P O (CKD) Potassium Chloride 100 ML ASDIR PRN IV Hydralazine HCl 100 MG Q8HR PO Labetalol HCl 400 MG Q8HR PO Furosemide 100 MG Q20H IV Sodium Chloride 90 ML Isosorbide Mononitrate 30 MG BID PO Magnesium 100 ML ASDIR PRN IV Magnesium Sulfate 50 ML ASDIR PRN IV Magnesium Sulfate 100 ML ASDIR PRN IV Clonidine HCl 0.2 MG Q7D TRANSDERM (CKD) Amlodipine Besylate 5 MG Q12HR PO Aspirin 81 MG DAILY FEED-TUBE (r) Atorvastatin Calcium 40 MG DAILY FEED-TUBE Albuterol/Ipratropium 3 ML RTQ6H INH Nicardipine HCl 250 ML TITRATE IV Dexmedetomidine HCl 400 MCG TITRATE IV Sodium Chloride 96 ML Dextrose/Water 25 ML ASDIR PRN IV Glucagon 1 MG ASDIR PRN IM Insulin Human Lispro LOW DOSE SCALE ASDIR SUBQ Sterile Water 1 ML ASDIR PRN IM Propofol 100 ML TITRATE IV (DC) Midazolam HCl 100 ML TITRATE IV (DC) Epinephrine 8 MG TITRATE IV (CKD) Sodium Chloride 242 ML Norepinephrine Bitartrate 16 MG TITRATE IV Sodium Chloride 234 ML Fentanyl Citrate 50 ML TITRATE IV (DC) Famotidine 20 MG DAILY PO Heparin Sodium (Porcine) 5,000 UNIT Q12HR SUBQ Esmolol HCl 250 ML TITRATE IV (CKD) Physical Exam General appearance: respiratory support, sedated Head/eyes: normal conjunctiva/sclera Neck: no JVD Respiratory: symmetric expansion Genitourinary: zuñiga, urine (appears pink) Extremities: pedal edema improved Musculoskeletal: normal inspection Neuro/RADIOTELEGRAPHIST: SEDATED Hemodialysis access: Type: vascath Psychiatry: unable to evaluate Results Findings/Data: Laboratory Tests 07/02 435 Blood Gas Puncture Site R Radial ABG pH (7.35 - 7.45 pH units) 7.45 ABG pCO2 (35 - 48 mmHg) 41.9 ABG pO2 (83 - 108 mmHg) 110.1 H ABG PO2/FiO2 Ratio (mm/Hg) 367.00 ABG HCO3 (21 - 28 mmol/L) 29.4 H ABG Total CO2 (22 - 29 mmol/L) 29.0 ABG O2 Sat Calc/Denise (94 - 98 %) 98.5 H ABG Base Excess (-2 - 3 mmol/L) 5.0 H Emmanuel Test Positive Sodium (138 - 146 mmol/L) 141 Potassium (3.5 - 4.5 mmol/L) 3.3 L Ionized Calcium (1.15 - 1.33 MMOL/L) 1.13 L Respiration Rate (12 - 20 /MIN) 12 O2 Delivery Device Adult Vent Vent Mode SIMV FiO2 (%) 30 Pressure Support (cmH2O) 10 Instrument (Specimen Descript) Arterial Laboratory Tests 07/02 07/02 07/02 07/01 0928 0436 022 1144 Chemistry Sodium (137 - 145 mmol/L) 140 Potassium (3.4 - 5.0 mmol/L) 3.2 L Chloride (98 - 107 mmol/L) 99 Carbon Dioxide (22 - 30 mmol/L) 33 H BUN (9 - 20 mg/dL) 28 H Creatinine (0.7 - 1.3 mg/dL) 1.2 Glomerular Filtr Rate (>60) 90 Glucose (74 - 106 mg/dL) 81 POC Glucose (74 - 106 MG/DL) 97 83 86 Calcium (8.4 - 10.2 mg/dL) 8.6 Magnesium (1.6 - 2.3 mg/dL) 1.8 Laboratory Tests 07/02 228 Hematology WBC (5.0 - 12.0 x10 3/uL) 13.0 H RBC (4.70 - 6.10 x10 6/uL) 3.27 L Hgb (14.0 - 18.0 g/dL) 9.4 L Hct (37.0 - 49.0 %) 30.3 L MCV (80 - 94 fL) 93 MCH (27 - 31 pg) 28.7 MCHC (33 - 37 g/dL) 31.0 L RDW (11.5 - 15.5 %) 15.7 H Plt Count (130 - 400 x10 3/uL) 244 MPV (9.4 - 16.4 fL) 10.4 Neut % (Auto) (43 - 65 %) 88.9 H Lymph % (Auto) (20.5 - 45.5 %) 3.7 L Citrus % (Auto) (5.5 - 11.7 %) 5.5 Eos % (Auto) (0.9 - 2.9 %) 1.2 Baso % (Auto) (0.2 - 1.0 %) 0.2 Neut # (Auto) (2.2 - 4.8 x10 3/uL) 11.54 H Lymph # (Auto) (1.3 - 2.9 x10 3/uL) 0.48 L Citrus # (Auto) (0.3 - 0.8 x10 3/uL) 0.71 Eos # (Auto) (0.0 - 0.2 x10 3/uL) 0.15 Baso # (Auto) (0.0 - 0.1 x10 3/uL) 0.02 Immature Gran % (0.0 - 2.0 %) 0.5 Nucleated RBC % (0 - 1.0 %) 0.0 Diagnosis, Assessment Plan Free Text A P: JENNIFER hypotension AAA lactic acidosis severe metabolic acidosis Cr stable; noted increase in bicarb; will monito r ABG 7.45 pH lasix gtt; excellent UOP BLE u/s to assess for DVTs discussed with cardiology about therapeu tic DVT ppx--clinical course dependent plan noted for trach/peg will monitor Electronically Signed by Giancarlo Izaguirre MD R2 on at 1213 RPT #:[id number] END OF REPORT 2020-07-02 09:32:00-00:[address] [facility] ([facility]) Nephrology Progress Note REPORT#:[id number] REPORT STATUS: Signed DATE:07/02/20 TIME: 0932 PATIENT: JORGE GOINS UNIT #: [id number] ROOM/BED: [place] [address]-[id number] : 86 AGE: 34 SEX: M ATTEND: Luis M Olmedo MD ADM AUTHOR: Giancarlo Izaguirre MD R2 * ALL edits or amendments must be made on the [employer]/computer document * Giancarlo Izaguirre 07/02/20 0932: Subjective Comments: remains intubated, on propofol grimaces to pain UOP 9L Review of Systems Unable to obtain due to: intubated/sedated Objective General VS/I O: Vital Signs: Date Time Temp Pulse Resp B/P B/P Pulse O2 O2 Fl ow FiO2 Mean Ox Delivery Rate 07/02 0904 100 Ventilator 0 30 07/02 0904 69 99 30 07/02 0750 98.1 07/02 0750 Ventilator 30 07/02 0645 71 22 116/58 82 100 /07 0630 70 14 114/56 80 100 /07 0615 70 18 118/59 83 100 01/07 0600 71 15 118/59 85 100 01/07 0545 71 22 120/58 81 100 01/07 0530 71 21 124/58 84 100 01/07 0515 70 19 126/61 86 100 01/07 0500 71 20 131/61 88 100 01/07 0445 70 22 131/64 89 100 01/07 0430 70 17 126/66 89 100 01/07 0415 69 21 130/62 89 100 01/07 0400 99.0 Ventilator 30 01/07 0400 68 17 130/63 90 100 01/07 0345 68 23 129/62 88 100 01/07 0330 68 20 127/60 87 100 01/07 0324 68 100 30 01/07 0315 68 22 124/58 84 100 01/07 0300 68 18 131/62 89 100 01/07 0245 69 01/07 0230 69 01/07 0215 69 20 124/61 85 100 01/07 0200 68 18 128/63 88 100 01/07 0145 68 23 130/63 89 100 01/07 0130 68 24 124/60 85 100 01/07 0115 68 21 127/62 87 100 01/07 0100 68 21 126/60 86 100 01/07 0045 68 19 121/58 83 100 01/07 0030 68 19 126/60 86 100 01/07 0015 69 23 123/59 84 100 01/07 0000 98.5 Ventilator 30 01/07 0000 69 23 125/60 85 100 01/07 0000 69 100 30 01/06 2345 69 23 123/60 84 100 01/06 2330 68 22 117/60 83 100 01/06 2315 69 24 117/59 83 99 01/06 2300 69 24 122/60 83 100 01/06 2245 69 20 117/57 80 100 01/06 2230 69 23 119/55 79 97 01/06 2215 69 23 117/55 78 99 01/06 2200 70 23 118/56 80 99 01/06 2145 70 25 117/55 78 100 01/06 2130 72 25 116/58 81 100 01/06 5 72 26 119/56 78 100 01/06 2100 72 26 118/57 82 100 01/06 2044 72 18 128/62 88 100 01/06 2031 98 Ventilator 30 01/06 2031 73 98 30 01/06 2029 72 28 124/67 87 98 01/06 2014 72 20 115/69 84 99 01/06 1999 98.7 Ventilator 30 01/06 1999 73 28 129/62 88 100 01/06 1945 74 31 128/62 89 99 01/06 1938 Ventilator 30 01/06 1930 72 5 128/58 84 100 01/06 1915 72 6 131/60 86 100 01/06 1900 72 10 127/58 83 100 01/06 1848 72 4 96 01/06 1845 72 0 128/58 84 96 01/06 1838 72 96 01/06 1830 73 124/57 82 97 01/06 1816 73 19 100 01/06 1815 73 14 123/56 80 100 01/06 1800 74 7 120/57 80 100 01/06 1749 74 18 100 01/06 1745 73 15 121/59 85 100 01/06 1730 74 30 121/59 83 100 01/06 1715 73 4 120/59 83 100 01/06 1700 74 9 122/58 83 100 01/06 1659 74 01/06 1645 74 16 121/55 79 100 01/06 1636 73 8 116/57 81 100 01/06 1633 72 7 121/55 80 100 01/06 1630 72 14 120/58 83 100 01/06 1627 72 8 125/57 82 100 01/06 1624 72 6 125/57 82 100 01/06 1621 73 7 125/57 82 100 01/06 1620 73 4 100 01/06 1618 73 9 126/59 85 100 01/06 1615 74 18 120/55 79 100 01/06 1612 72 6 119/56 80 99 01/06 1609 72 10 125/58 83 99 01/06 1606 124/58 83 01/06 1603 72 129/60 87 98 01/06 1600 71 15 128/60 86 98 01/06 1557 71 5 128/60 86 98 01/06 1554 71 6 129/61 87 98 01/06 1551 71 13 134/63 90 98 01/06 1548 71 8 129/60 86 98 01/06 1545 71 5 131/60 87 98 01/06 1542 71 7 129/60 86 98 01/06 1539 71 8 131/61 88 98 01/06 1536 71 11 133/61 88 97 01/06 1533 72 10 130/60 87 98 01/06 1530 72 2 133/62 89 97 01/06 1528 99.2 97 30 Tracheostomy collar 01/06 1527 72 0 128/60 87 97 01/06 1524 72 9 130/61 88 98 01/06 1521 72 0 127/60 86 99 01/06 1518 72 0 128/60 86 100 01/06 1515 72 10 128/60 87 99 01/06 1512 72 15 126/58 84 99 01/06 1509 72 11 129/61 86 100 01/06 1506 72 11 130/60 86 99 01/06 1503 72 8 130/60 86 99 01/06 1501 72 13 99 01/06 1500 72 9 136/63 90 99 01/06 1457 72 12 129/62 88 99 01/06 1454 72 8 127/59 85 99 01/06 1451 72 11 128/60 86 100 01/06 1448 72 14 127/59 85 100 01/06 1445 71 18 131/60 87 100 01/06 1442 71 10 134/62 87 100 01/06 1439 71 5 131/60 87 100 01/06 1436 71 2 129/61 87 100 01/06 1433 71 13 130/60 87 100 01/06 1430 71 18 127/59 85 100 01/06 1427 71 11 128/60 86 100 01/06 1424 71 0 126/59 85 100 01/06 1421 71 13 123/56 81 100 01/06 1418 71 16 127/58 84 100 01/06 1415 71 18 126/57 82 100 01/06 1413 71 100 30 01/06 1412 71 10 125/60 83 100 01/06 1409 71 130/62 87 100 01/06 1406 71 129/61 88 100 01/06 1403 71 9 125/59 85 99 01/06 1400 71 128/59 85 99 01/06 1357 70 127/58 84 100 01/06 1354 70 7 133/60 87 99 01/06 1351 72 123/60 83 99 01/06 1348 72 24 121/59 83 89 01/06 1345 69 125/60 84 98 01/06 1342 69 125/59 85 98 01/06 1339 69 121/58 82 97 01/06 1336 70 12 122/59 82 97 01/06 1333 70 22 122/57 82 97 01/06 1330 71 5 119/55 79 97 01/06 1327 71 119/55 79 98 01/06 1324 71 13 120/56 80 97 01/06 1321 71 116/56 79 97 01/06 1318 71 19 113/58 81 97 01/06 1316 71 15 97 01/06 1315 71 0 119/56 80 97 01/06 1314 71 0 97 01/06 1312 71 0 115/58 79 97 01/06 1309 74 14 120/61 86 97 01/06 1306 72 16 119/56 81 98 01/06 1303 72 13 125/61 85 97 01/06 1300 72 13 125/65 87 92 01/06 1257 72 25 125/68 87 97 01/06 1255 72 9 98 01/06 1254 74 12 123/62 85 99 01/06 1251 75 26 129/62 88 100 01/06 1245 75 25 130/61 86 100 01/06 1242 75 12 100 01/06 1230 76 21 133/61 88 100 01/06 1215 77 6 133/60 87 100 01/06 1200 77 22 129/60 87 99 01/06 1159 77 22 100 01/06 1158 99.5 100 Ventilator 30 01/06 1156 77 15 100 01/06 1145 78 19 131/62 89 99 01/06 1130 78 15 130/60 86 99 07/01 1115 78 15 131/59 85 99 07/01 1106 78 15 99 07/01 1100 78 18 129/58 84 99 07/01 1046 78 15 99 07/01 1045 78 15 122/56 81 99 07/01 1042 78 10 99 07/01 1030 78 7 133/62 89 99 07/01 1015 79 11 129/60 86 99 24 hour I O ending at 0700: 07/02 0700 07/01 1900 Intake Total 3186.00 2590.35 Output Total 4600 4775 Balance -1414.00 -2184.65 Intake, Free 300 Water Intake, IV 2866.00 2590.35 Intake, Tube 20 Feeding Output, Stool 50 100 Output, Urine 4550 4675 Patient 99.8 kg Weight Weight Bed scale Measurement Method Medications Active Meds + DC'd Last 24 Hrs Propofol 100 ML TITRATE IV (CKD) Propofol 0 .STK-MED ONE .ROUTE (DC) Cefazolin Sodium 1 GM PREOP IV (CKD) Sterile Water 10 ML Fentanyl Citrate 0 .STK-MED ONE .ROUTE (DC) Midazolam HCl 0 .STK-MED ONE .ROUTE (DC) Propofol 0 .STK-MED ONE .ROUTE (DC) Perflutren Lipid Microsphere DIRECTED ONCE PRN IV Sodium Chloride DIRECTED ONCE PRN IV Sodium Chloride 5 ML ONCE PRN IV Potassium Bicarbonate/Citric Acid 20 MEQ ASDIR P O (CKD) Potassium Chloride 100 ML ASDIR PRN IV Hydralazine HCl 100 MG Q8HR PO Labetalol HCl 400 MG Q8HR PO Furosemide 100 MG Q20H IV Sodium Chloride 90 ML Isosorbide Mononitrate 30 MG BID PO Magnesium 100 ML ASDIR PRN IV Magnesium Sulfate 50 ML ASDIR PRN IV Magnesium Sulfate 100 ML ASDIR PRN IV Clonidine HCl 0.2 MG Q7D TRANSDERM (CKD) Amlodipine Besylate 5 MG Q12HR PO Aspirin 81 MG DAILY FEED-TUBE (r) Atorvastatin Calcium 40 MG DAILY FEED-TUBE Albuterol/Ipratropium 3 ML RTQ6H INH Nicardipine HCl 250 ML TITRATE IV Dexmedetomidine HCl 400 MCG TITRATE IV Sodium Chloride 96 ML Dextrose/Water 25 ML ASDIR PRN IV Glucagon 1 MG ASDIR PRN IM Insulin Human Lispro LOW DOSE SCALE ASDIR SUBQ Sterile Water 1 ML ASDIR PRN IM Propofol 100 ML TITRATE IV (DC) Midazolam HCl 100 ML TITRATE IV (DC) Epinephrine 8 MG TITRATE IV (CKD) Sodium Chloride 242 ML Norepinephrine Bitartrate 16 MG TITRATE IV Sodium Chloride 234 ML Fentanyl Citrate 50 ML TITRATE IV (DC) Famotidine 20 MG DAILY PO Heparin Sodium (Porcine) 5,000 UNIT Q12HR SUBQ Esmolol HCl 250 ML TITRATE IV (CKD) Physical Exam General appearance: respiratory support, sedated Head/eyes: normal conjunctiva/sclera Neck: no JVD Respiratory: symmetric expansion Genitourinary: zuñiga, urine (appears pink) Extremities: pedal edema improved Musculoskeletal: normal inspection Neuro/RADIOTELEGRAPHIST: SEDATED Hemodialysis access: Type: vascath Psychiatry: unable to evaluate Results Findings/Data: Laboratory Tests 07/02 435 Blood Gas Puncture Site R Radial ABG pH (7.35 - 7.45 pH units) 7.45 ABG pCO2 (35 - 48 mmHg) 41.9 ABG pO2 (83 - 108 mmHg) 110.1 H ABG PO2/FiO2 Ratio (mm/Hg) 367.00 ABG HCO3 (21 - 28 mmol/L) 29.4 H ABG Total CO2 (22 - 29 mmol/L) 29.0 ABG O2 Sat Calc/Denise (94 - 98 %) 98.5 H ABG Base Excess (-2 - 3 mmol/L) 5.0 H Emmanuel Test Positive Sodium (138 - 146 mmol/L) 141 Potassium (3.5 - 4.5 mmol/L) 3.3 L Ionized Calcium (1.15 - 1.33 MMOL/L) 1.13 L Respiration Rate (12 - 20 /MIN) 12 O2 Delivery Device Adult Vent Vent Mode SIMV FiO2 (%) 30 Pressure Support (cmH2O) 10 Instrument (Specimen Descript) Arterial Laboratory Tests 07/02 07/02 07/02 07/01 0928 [id number] Chemistry Sodium (137 - 145 mmol/L) 140 Potassium (3.4 - 5.0 mmol/L) 3.2 L Chloride (98 - 107 mmol/L) 99 Carbon Dioxide (22 - 30 mmol/L) 33 H BUN (9 - 20 mg/dL) 28 H Creatinine (0.7 - 1.3 mg/dL) 1.2 Glomerular Filtr Rate (>60) 90 Glucose (74 - 106 mg/dL) 81 POC Glucose (74 - 106 MG/DL) 97 83 86 Calcium (8.4 - 10.2 mg/dL) 8.6 Magnesium (1.6 - 2.3 mg/dL) 1.8 Laboratory Tests 07/02 228 Hematology WBC (5.0 - 12.0 x10 3/uL) 13.0 H RBC (4.70 - 6.10 x10 6/uL) 3.27 L Hgb (14.0 - 18.0 g/dL) 9.4 L Hct (37.0 - 49.0 %) 30.3 L MCV (80 - 94 fL) 93 MCH (27 - 31 pg) 28.7 MCHC (33 - 37 g/dL) 31.0 L RDW (11.5 - 15.5 %) 15.7 H Plt Count (130 - 400 x10 3/uL) 244 MPV (9.4 - 16.4 fL) 10.4 Neut % (Auto) (43 - 65 %) 88.9 H Lymph % (Auto) (20.5 - 45.5 %) 3.7 L Citrus % (Auto) (5.5 - 11.7 %) 5.5 Eos % (Auto) (0.9 - 2.9 %) 1.2 Baso % (Auto) (0.2 - 1.0 %) 0.2 Neut # (Auto) (2.2 - 4.8 x10 3/uL) 11.54 H Lymph # (Auto) (1.3 - 2.9 x10 3/uL) 0.48 L Citrus # (Auto) (0.3 - 0.8 x10 3/uL) 0.71 Eos # (Auto) (0.0 - 0.2 x10 3/uL) 0.15 Baso # (Auto) (0.0 - 0.1 x10 3/uL) 0.02 Immature Gran % (0.0 - 2.0 %) 0.5 Nucleated RBC % (0 - 1.0 %) 0.0 Diagnosis, Assessment Plan Free Text A P: JENNIFER hypotension AAA lactic acidosis severe metabolic acidosis Cr stable; noted increase in bicarb; will monito r ABG 7.45 pH lasix gtt; excellent UOP BLE u/s to assess for DVTs discussed with cardiology about therapeu tic DVT ppx--clinical course dependent plan noted for trach/peg will monitor Jojo York 07/03/20 1657: Attestations Attestation needed: teaching physician Physician Attestation Agree w/findings plan: Agree with the findings and plan as documented Electronically Signed by Giancarlo Izaguirre MD R2 on at 1213 at 1657 RPT #:[id number] END OF REPORT 2020-07-01 23:30:00-00:[address] [facility] ([facility]) Cardiology Progress Note REPORT#:[id number] REPORT STATUS: Signed DATE:07/01/20 TIME: 2329 PATIENT: JORGE GOINS UNIT #: [id number] ROOM/BED: [address] : 86 AGE: 34 SEX: M ATTEND: Luis M Olmedo MD ADM AUTHOR: Giancarlo Phan MD * ALL edits or amendments must be made on the rimidi/computer document * Subjective Free Text Subj Notes Free Text Subj Notes: No acute changes. Objective Physical Exam Head/Eyes: atraumatic, normocephalic, PERRL ENT: moist mucosal membranes, normal nose Neck: non-tender, supple/no meningismus Cardiovascular: CV assessment: regular rate and rhythm, no murm ur Respiratory: no distress, coarse breathsounds, m echanically ventialted Abdomen: soft, non-tender Upper extremity: UE assessment: normal capillary refill, normal temperature Lower extremity: LE assessment: normal capillary refill, normal temperature, no edema Musculoskeletal: normal inspection Neuro/RADIOTELEGRAPHIST: intubated and sedated, withdraws to p ainful stimuli Diagnosis, Assessment Plan Free Text DxA P Notes Free Text DxA P Notes: 1. Hypertensive urgency/emergency - presented with severely elevated BP requiring 2 IV infusions, subsequently suffered PEA cardiac arrest - BP very high - - hydralazine increased to 100 - increase labetalol - clonidine patch added - norvasc added - added ismn 30mg xl bid - wean down cardene and esmlol as much as we ca n - goal bp 120-140/60-80 2. Cardiac arrest - PEA in etiology, pt became hypothermic and sub sequently bradycardic 3. Type B aortic dissection s/p EVAR - has residual descending aortic dissect ion extending into iliacs. No evidence of rupture on CTA. Reviewed by vascular surgery - appreciate assitance - needs aggressive BP Control. 4. Acute on chronic systolic heart failure - likely hypertensive heart disease due to long standing elevated BP - warm and well perfused on examination - need low dose lasix to see if this helps, he i s edematous - check BNP - may need lasix drip 5. Shock - resolved - warm and well perfused on examination 6. JENNIFER on CKD stage 3 - likely secondary to fluctuation in BP - nephrology following, appreciate recommendatio ns - monitor UOP 7. Acute hypoxic respiratory failure - wean from ventilator as tolerated - per ICU te am Given current inability to wean patient will und ergo trach and PEG tube placement. Ultimately his biggest prognostic ind icator will be his true neurologic status. We will continue to monitor mallory glover closely Will follow. Please call if questions. [facility] Cardiology Electronically Signed by Giancarlo Phan MD on 12/14 at 2331 RPT #:[id number] END OF REPORT 2020-07-01 20:00:00-00:[address] [facility] ([facility]) Operative Note - Full REPORT#:[id number] REPORT STATUS: Signed DATE:07/01/20 TIME: 1999 PATIENT: JORGE GOINS UNIT #: [id number] ROOM/BED: [address] : 86 AGE: 34 SEX: M ATTEND: Luis M Olmedo MD ADM AUTHOR: Vic Amaya MD * ALL edits or amendments must be made on the el [employer]/computer document * Operative Report ORM Surgeries: Surgery Date and Time: 07/01/2020 1230 Proposed Primary Procedure: PEG PLACEMENT Start date: 07/01/20 Start time: 1999 Pre-procedure diagnosis: 1-Respiratory failure 2-Malnutrition, Dysphagia. Post-procedure diagnosis: The same Procedures performed: 1-Percutaneous tracheostomy 2-EGD/PEG Technique/Procedure: The patient was placed in the supine position on the ICU bed. Under local and IV sedation, the oropharynx, base of the tongue, piriform fossa were topically anesthetized. The patient was intubated and the [employer]pus gastro video scope was introduced into the oropharynx gently and advanced towards the esophagus. The NG tube was removed and the scope was avanced toward the distal esophagus and into the stomach. The gastric pouch was insufflated and the light was allowed to kal ne to the anterior abdominal wall and an area was selecte d and the indentation was seen in the gastric pouch. At this level, 1% lidocaine with epinephrine wa s injected. Then, the needle cannula was inserted and was seen by the scope. The guidewire was advanced and was grasped by the snare and was pulled from the mouth. Then, it was attached to size #24-[place]oz[place] Ponsky pull gastrostomy. The tube was pulled from the exiting site from the abdominal wall and the end was followed by the scope and was seen entering the gastric wall resting in th e gastric mucosa without tension. The scope was then withdrawn. The stoma ch was deflated and the attachments were applied to the tube. The proced ure was terminated at this point and the patient was pr epared for tracheostomy. The patient was kept in the supine position with the neck slightly e xtended and the broncho videoscope was inserted into the trachea towards the anterior n hany. The light was allowed to shine and was seen at that level, the ne ck was prepped and draped in the usual sterile manner. Then, 1% lidocaine with epinephr ine was infiltrated. Then the needle was inserted and it was seen by the scope , the guidewire was inserted under direct vision towards the rubina. This was followed by the blue dilator, then by the combination dennis anupam and dilator to dilate the skin and the trachea. Following that, the tracheostomy tube was mounte d on the proper dilator was introduced over the guidewire and was se en entering the tracheal lumen and the balloon was inflated and the tracheal tube was tested and appeared to be working properly and the position wa s also verified by bronchoscopy. Following that, it was sutured to the skin with 3-0 Ethilon suture and the tracheal strap was applied around the neck to hold the tracheostomy tube in place. Procedure was terminated at this point. The patient was discha rged to the ICU in stable condition. Primary Surgeon: ramesh Commercial Stripper(s): none Anesthesia: general anesthesia Operative findings: As above Complications: none Estimated blood loss in ml's: none Specimens removed/altered: none Implant(s): none Electronically Signed by Vic Amaya MD on 07/02 at 0543 RPT #:[id number] END OF REPORT 2020-07-01 17:12:00-00:00 [facility] Vascular Surgery Progress Note REPORT#:[id number] REPORT STATUS: Signed DATE:07/01/20 TIME: 1711 PATIENT: JORGE GOINS UNIT #: [id number] ROOM/BED: [address] : 86 AGE: 34 SEX: M ATTEND: Luis M Olmedo MD ADM AUTHOR: Lorenzo Cardoza MD * ALL edits or amendments must be made on the rimidi/computer document * Subjective Chief Complaint: Intubated and sedated at time of examination HPI 34 year old male with compli cated type B dissection now with questionable stoke. He needs further TEVAR and intervention at some point when stable. Objective HEENT: anicteric Neck: supple Cardiovascular: regular rate, hypertensive despi te multiple blood pressure lowering agents Respiratory: symmetric expansion Abdomen: soft, non-tender Genitourinary: zuñiga Extremities: palpable radial and dorsalis pedis pulses bilaterally Neuro/RADIOTELEGRAPHIST: intubated and sedated Skin: no flank or back ecchymosis Psychiatry: unable to evaluate Diagnosis, Assessment Plan Free Text A P: 34 year old male with complicated type B dissection in need of extension TEVAR when stable Keep BP less than 120mmhg, ok to allow hypertens ion to facilitate exubtation Extubate when feasible Will need further TEVAR when stable Vascular surgery will continue to follow closely . at 1713 RPT #:[id number] END OF REPORT 2020-07-01 16:45:00-00:00 [facility] Critical Care Progress Note REPORT#:[id number] REPORT STATUS: Signed DATE:07/01/20 TIME: 1645 PATIENT: JORGE GOINS UNIT #: [id number] ROOM/BED: [address] : 86 AGE: 34 SEX: M ATTEND: Luis M Olmedo MD ADM AUTHOR: Papi England MD * ALL edits or amendments must be made on the el [employer]/computer document * Subjective Chief Complaint: trach and peg today Objective General VS/I O Last Documented: Result Date Time Pulse Ox 100 07/01 1620 Pulse 73 07/01 1620 Resp 4 07/01 1620 B/P 126/59 07/01 1618 B/P Mean 85 07/01 1618 FiO2 30 07/01 1528 O2 Delivery Tracheostomy collar 07/01 1528 Temp 37.3 07/01 1528 O2 Flow Rate 0 06/26 0936 24 hour I O ending at 0700: 07/01 0700 06/30 1900 Intake Total 3351.00 2787.00 Output Total 5800 5300 Balance -2449.00 -2513.00 Intake, IV 2981.00 2720.00 Intake, Oral 0 Intake, Tube 120 67 Feeding Intake, Tube 250 Irrigant Output, Stool 50 Output, Urine 5750 5300 Patient 103.6 kg Weight Weight Bed scale Measurement Method PATIENT WEIGHT: Weight (lb): 228 Weight (oz): 6.38 Weight (kg): 103.600 Medications: Active Meds + DC'd Last 24 Hrs Propofol 0 .STK-MED ONE .ROUTE (DC) Cefazolin Sodium 1 GM PREOP IV (CKD) Sterile Water 10 ML Fentanyl Citrate 0 .STK-MED ONE .ROUTE (DC) Midazolam HCl 0 .STK-MED ONE .ROUTE (DC) Propofol 0 .STK-MED ONE .ROUTE (DC) Perflutren Lipid Microsphere DIRECTED ONCE PRN IV Sodium Chloride DIRECTED ONCE PRN IV Sodium Chloride 5 ML ONCE PRN IV Potassium Bicarbonate/Citric Acid 20 MEQ ASDIR P O (CKD) Potassium Chloride 100 ML ASDIR PRN IV Hydralazine HCl 100 MG Q8HR PO Labetalol HCl 400 MG Q8HR PO Furosemide 100 MG Q20H IV Sodium Chloride 90 ML Isosorbide Mononitrate 30 MG BID PO Magnesium 100 ML ASDIR PRN IV Magnesium Sulfate 50 ML ASDIR PRN IV Magnesium Sulfate 100 ML ASDIR PRN IV Clonidine HCl 0.2 MG Q7D TRANSDERM (CKD) Amlodipine Besylate 5 MG Q12HR PO Aspirin 81 MG DAILY FEED-TUBE (DA) Atorvastatin Calcium 40 MG DAILY FEED-TUBE Albuterol/Ipratropium 3 ML RTQ6H INH Nicardipine HCl 250 ML TITRATE IV Dexmedetomidine HCl 400 MCG TITRATE IV Sodium Chloride 96 ML Dextrose/Water 25 ML ASDIR PRN IV Glucagon 1 MG ASDIR PRN IM Insulin Human Lispro LOW DOSE SCALE ASDIR SUBQ Sterile Water 1 ML ASDIR PRN IM Propofol 100 ML TITRATE IV (CKD) Midazolam HCl 100 ML TITRATE IV (CKD) Epinephrine 8 MG TITRATE IV (CKD) Sodium Chloride 242 ML Norepinephrine Bitartrate 16 MG TITRATE IV Sodium Chloride 234 ML Fentanyl Citrate 50 ML TITRATE IV (DC) Famotidine 20 MG DAILY PO Heparin Sodium (Porcine) 5,000 UNIT Q12HR SUBQ Esmolol HCl 250 ML TITRATE IV (CKD) Physical Exam General appearance: altered mental status Head/Eyes: atraumatic, normocephalic Cardiovascular: normal heart sounds, normal S1 S 2, normal rate and rhythm Respiratory/Chest: aerating well, clear to auscu ltation Abdomen: soft, non-tender, normal bowel sounds, no distention Extremities: no edema Neuro/RADIOTELEGRAPHIST: disoriented Results Findings/Data: Laboratory Tests 07/01/20 0326: [Embedded Image Not Available] Laboratory Tests 07/01 0407 Blood Gas Puncture Site L Radial ABG pH (7.35 - 7.45 pH units) 7.48 H ABG pCO2 (35 - 48 mmHg) 37.1 ABG pO2 (83 - 108 mmHg) 109.3 H ABG PO2/FiO2 Ratio (mm/Hg) 364.33 ABG HCO3 (21 - 28 mmol/L) 27.5 ABG Total CO2 (22 - 29 mmol/L) 27.1 ABG O2 Sat Calc/Denise (94 - 98 %) 98.6 H ABG Base Excess (-2 - 3 mmol/L) 3.8 H Emmanuel Test N/A Sodium (138 - 146 mmol/L) 143 Potassium (3.5 - 4.5 mmol/L) 3.6 Ionized Calcium (1.15 - 1.33 MMOL/L) 1.13 L Respiration Rate (12 - 20 /MIN) 12 O2 Delivery Device Adult Vent Vent Mode SIMV(VC)+PS FiO2 (%) 30 Instrument (Specimen Descript) Arterial Laboratory Tests 07/01 07/01 07/01 07/01 06/30 1144 0822 0407 0326 2155 Chemistry Sodium (137 - 145 mmol/L) 141 Potassium (3.4 - 5.0 mmol/L) 3.8 Chloride (98 - 107 mmol/L) 104 Carbon Dioxide (22 - 30 mmol/L) 31 H BUN (9 - 20 mg/dL) 29 H Creatinine (0.7 - 1.3 mg/dL) 1.2 Glomerular Filtr Rate (>60) 90 Glucose (74 - 106 mg/dL) 84 POC Glucose (74 - 106 MG/DL) 86 87 88 90 Calcium (8.4 - 10.2 mg/dL) 8.7 06/30 1738 Chemistry POC Glucose (74 - 106 MG/DL) 88 Laboratory Tests 07/01 0326 Hematology WBC (5.0 - 12.0 x10 3/uL) 8.4 RBC (4.70 - 6.10 x10 6/uL) 3.30 L Hgb (14.0 - 18.0 g/dL) 9.4 L Hct (37.0 - 49.0 %) 30.7 L MCV (80 - 94 fL) 93 MCH (27 - 31 pg) 28.5 MCHC (33 - 37 g/dL) 30.6 L RDW (11.5 - 15.5 %) 16.0 H Plt Count (130 - 400 x10 3/uL) 256 MPV (9.4 - 16.4 fL) 11.1 Neut % (Auto) (43 - 65 %) 86.2 H Lymph % (Auto) (20.5 - 45.5 %) 4.4 L Citrus % (Auto) (5.5 - 11.7 %) 7.1 Eos % (Auto) (0.9 - 2.9 %) 1.7 Baso % (Auto) (0.2 - 1.0 %) 0.2 Neut # (Auto) (2.2 - 4.8 x10 3/uL) 7.28 H Lymph # (Auto) (1.3 - 2.9 x10 3/uL) 0.37 L Citrus # (Auto) (0.3 - 0.8 x10 3/uL) 0.60 Eos # (Auto) (0.0 - 0.2 x10 3/uL) 0.14 Baso # (Auto) (0.0 - 0.1 x10 3/uL) 0.02 Immature Gran % (0.0 - 2.0 %) 0.4 Nucleated RBC % (0 - 1.0 %) 0.0 Laboratory Tests 06/30 1738 Serology SARS-CoV-2 Ag (Rapid) (Negative) NEGATIVE Diagnosis, Assessment Plan Free text A P: 34 year old male with history of aortic dissecti on s/p EVAR came in for hypertensive urgency A/P: Neuro -intubated -MRI multiple ischemic cva #AMS -MRI multifocal cva -on versed -EEG pending -neuro following Pulm -s/p intubation following cardiac arrest -on FiO2 28% -ABG this AM 7.47/29.3/118.3/21.1 -mental status not optimal for extubation Airway protection is an issue will proceed with trach CV #s/p Cardiac Arrest - PEA hypotensive. ROSC achieved after 9 minutes - likely from cardiogenic shock EF 30-34% - off all pressors - Aortic dissection ruled out from CTA chest , a bdomen and pelvis #hx of EVAR for aortic dissection and h/o endole ak in the past - per vascular surgery -uncontrolled hypertension wean esmolol wean cardene ECHO WMA check with cardiology about need for heart cath #HTN -restart coreg -on cardene -cardio following -monitor #Hypertension norvasc hydralazine wean esmolol wean cardene GI on tube feeding Renal #JENNIFER stable started on lasix drip my cardiology gi ppx: pepcid dvt ppx: heparin Diet: tube feeds condition critical prognosis guarded CC time more than 45 minutes Reviewed chart/images Excludes all procedure time at 1646 RPT #:[id number] END OF REPORT 2020-07-01 14:19:00-00:[address] [facility] ([facility]) Post Anesthesia Evaluation REPORT#:[id number] REPORT STATUS: Signed DATE:07/01/20 TIME: 1419 PATIENT: JORGE GOINS UNIT #: [id number] ROOM/BED: [address] : 86 AGE: 34 SEX: M ATTEND: Luis M Olmedo MD ADM AUTHOR: Carlin Cross MD * ALL edits or amendments must be made on the [employer]idi[employer] document * Post Anesthesia Evaluation Anes. changes from pre-op eval ORM Surgeries: Surgery Date and Time: 07/01/2020 1230 Proposed Primary Procedure: PEG PLACEMENT Anesthetic: GETA Surgery: TRACHEOSTOMY Date: 07/01/20 Level of consciousness: PATIENT IS SEDATED Vital signs: Last Documented: Result Date Time Pulse Ox 100 07/01 1413 FiO2 30 07/01 1413 Pulse 71 07/01 1413 Resp 15 07/01 1316 B/P 119/56 07/01 1315 B/P Mean 80 07/01 1315 O2 Delivery Ventilator 07/01 1158 Temp 37.5 07/01 1158 O2 Flow Rate 0 06/26 0936 Cardiovascular: vital signs stable, ECG,BP,SPO2,RR within reasonable and normal pre-procedure status, PATIEN T CONTINUES PREOP MEDICATIONS TO REMAIN NORMOTENSIVE Respiratory/Airway: PATIENT CONTINUES ME CHANICAL RESPIRATORY SUPPORT VIA TRACH AFTER ETT REMOVED Pain: controlled with analgesics (0-3) Hydration: adequate Temp status: normothermic Presence of N/V: no Anesthesia complications: no Other changes requiring f/u: none at 1422 RPT #:[id number] END OF REPORT 2020-07-01 12:51:00-00:00 [facility] Neurology Progress Note REPORT#:[id number] REPORT STATUS: Signed DATE:07/01/20 TIME: 1251 PATIENT: JORGE GOINS UNIT #: [id number] ROOM/BED: [address] : 86 AGE: 34 SEX: M ATTEND: Luis M Olmedo MD ADM AUTHOR: Jessica Parson MD * ALL edits or amendments must be made on the [employer] document * Subjective Chief Complaint: Lethargy and AMS Comments: patient unresponsive no acute overnight neuro events remains on sedation Review of Systems Unable to obtain due to: mental status Objective General VS: Last Documented: Result Date Time Pulse Ox 100 07/01 1242 Pulse 75 07/01 1242 Resp 12 07/01 1242 B/P 133/61 07/01 1230 B/P Mean 88 07/01 1230 FiO2 30 07/01 1158 O2 Delivery Ventilator 07/01 1158 Temp 37.5 07/01 1158 O2 Flow Rate 0 06/26 0936 PATIENT WEIGHT: Weight (lb): 228 Weight (oz): 6.38 Weight (kg): 103.600 exam intubated, sedated head is normal cephalic atraumatic cvs- regular rate respiratory support neurologic- unresponseive but on sedation eyes closed pupils equal round and reactive to light no gaze deviation face symmetric no spontaneous or purposeful movements Medications Current Home Medications ALBUTEROL (PROAIR HFA 90 MCG/ACT 8.5 GM) 2 PUFF INH RTQ6H PRN PRN SOB ASPIRIN EC (ECOTRIN) 81 MG PO DAILY CARVEDILOL (COREG) 25 MG PO BID MEALS ACETAMINOPHEN/CODEINE (TYLENOL WITH CODE INE #4 300/60 MG) 1 TAB PO Q6H PRN PRN PAIN ATORVASTATIN (LIPITOR) 20 MG PO BEDTIME LOSARTAN (COZAAR) 100 MG PO DAILY NIFEdipine CC (ADALAT CC) 90 MG PO Q12HR HYDROCHLOROTHIAZIDE (HYDRODIURIL) 25 MG PO DAILY Active Meds + DC'd Last 24 Hrs Fentanyl Citrate 0 .STK-MED ONE .ROUTE (DC) Midazolam HCl 0 .STK-MED ONE .ROUTE (DC) Propofol 0 .STK-MED ONE .ROUTE (DC) Perflutren Lipid Microsphere DIRECTED ONCE PRN IV Sodium Chloride DIRECTED ONCE PRN IV Sodium Chloride 5 ML ONCE PRN IV Potassium Bicarbonate/Citric Acid 20 MEQ ASDIR P O (CKD) Potassium Chloride 100 ML ASDIR PRN IV Hydralazine HCl 100 MG Q8HR PO Labetalol HCl 400 MG Q8HR PO Furosemide 100 MG Q20H IV Sodium Chloride 90 ML Isosorbide Mononitrate 30 MG BID PO Magnesium 100 ML ASDIR PRN IV Magnesium Sulfate 50 ML ASDIR PRN IV Magnesium Sulfate 100 ML ASDIR PRN IV Clonidine HCl 0.2 MG Q7D TRANSDERM (CKD) Amlodipine Besylate 5 MG Q12HR PO Aspirin 81 MG DAILY FEED-TUBE (DA) Atorvastatin Calcium 40 MG DAILY FEED-TUBE Albuterol/Ipratropium 3 ML RTQ6H INH Nicardipine HCl 250 ML TITRATE IV Dexmedetomidine HCl 400 MCG TITRATE IV Sodium Chloride 96 ML Dextrose/Water 25 ML ASDIR PRN IV Glucagon 1 MG ASDIR PRN IM Insulin Human Lispro LOW DOSE SCALE ASDIR SUBQ Sterile Water 1 ML ASDIR PRN IM Propofol 100 ML TITRATE IV (CKD) Midazolam HCl 100 ML TITRATE IV (CKD) Epinephrine 8 MG TITRATE IV (CKD) Sodium Chloride 242 ML Norepinephrine Bitartrate 16 MG TITRATE IV Sodium Chloride 234 ML Fentanyl Citrate 50 ML TITRATE IV (DC) Famotidine 20 MG DAILY PO Heparin Sodium (Porcine) 5,000 UNIT Q12HR SUBQ Esmolol HCl 250 ML TITRATE IV (CKD) Results Findings/Data: Laboratory Tests 07/01 0407 Blood Gas Puncture Site L Radial ABG pH (7.35 - 7.45 pH units) 7.48 H ABG pCO2 (35 - 48 mmHg) 37.1 ABG pO2 (83 - 108 mmHg) 109.3 H ABG PO2/FiO2 Ratio (mm/Hg) 364.33 ABG HCO3 (21 - 28 mmol/L) 27.5 ABG Total CO2 (22 - 29 mmol/L) 27.1 ABG O2 Sat Calc/Denise (94 - 98 %) 98.6 H ABG Base Excess (-2 - 3 mmol/L) 3.8 H Emmanuel Test N/A Sodium (138 - 146 mmol/L) 143 Potassium (3.5 - 4.5 mmol/L) 3.6 Ionized Calcium (1.15 - 1.33 MMOL/L) 1.13 L Respiration Rate (12 - 20 /MIN) 12 O2 Delivery Device Adult Vent Vent Mode SIMV(VC)+PS FiO2 (%) 30 Instrument (Specimen Descript) Arterial Laboratory Tests 07/01 07/01 07/01 07/01 06/30 1144 0822 0407 0325 2155 Chemistry Sodium (137 - 145 mmol/L) 141 Potassium (3.4 - 5.0 mmol/L) 3.8 Chloride (98 - 107 mmol/L) 104 Carbon Dioxide (22 - 30 mmol/L) 31 H BUN (9 - 20 mg/dL) 29 H Creatinine (0.7 - 1.3 mg/dL) 1.2 Glomerular Filtr Rate (>60) 90 Glucose (74 - 106 mg/dL) 84 POC Glucose (74 - 106 MG/DL) 86 87 88 90 Calcium (8.4 - 10.2 mg/dL) 8.7 06/30 1737 Chemistry POC Glucose (74 - 106 MG/DL) 88 Laboratory Tests 07/01 0326 Hematology WBC (5.0 - 12.0 x10 3/uL) 8.4 RBC (4.70 - 6.10 x10 6/uL) 3.30 L Hgb (14.0 - 18.0 g/dL) 9.4 L Hct (37.0 - 49.0 %) 30.7 L MCV (80 - 94 fL) 93 MCH (27 - 31 pg) 28.5 MCHC (33 - 37 g/dL) 30.6 L RDW (11.5 - 15.5 %) 16.0 H Plt Count (130 - 400 x10 3/uL) 256 MPV (9.4 - 16.4 fL) 11.1 Neut % (Auto) (43 - 65 %) 86.2 H Lymph % (Auto) (20.5 - 45.5 %) 4.4 L Citrus % (Auto) (5.5 - 11.7 %) 7.1 Eos % (Auto) (0.9 - 2.9 %) 1.7 Baso % (Auto) (0.2 - 1.0 %) 0.2 Neut # (Auto) (2.2 - 4.8 x10 3/uL) 7.28 H Lymph # (Auto) (1.3 - 2.9 x10 3/uL) 0.37 L Citrus # (Auto) (0.3 - 0.8 x10 3/uL) 0.60 Eos # (Auto) (0.0 - 0.2 x10 3/uL) 0.14 Baso # (Auto) (0.0 - 0.1 x10 3/uL) 0.02 Immature Gran % (0.0 - 2.0 %) 0.4 Nucleated RBC % (0 - 1.0 %) 0.0 Laboratory Tests 06/30 1738 Serology SARS-CoV-2 Ag (Rapid) (Negative) NEGATIVE Diagnosis, Assessment Plan Free Text A P: Impression 1. Acute encephalopathy - multifactorial - metab olic/hypertensive emergency/ acute stroke 2. Acute ischemic strokes, suspect embolic sourc e, + PFO 4. hypertensive emergency - still requiring akua rdipine drip and antihypertensives being adjusted 5. acute respiratory failure requiring intubatio n 6. complicated type b aortic dissection, in need of extension TEVAR when stable per vascular surgery Plan check lower extremity dopplers plan for trach and peg today blood pressure control continue current care plan asa and statin consider PFO closure in future when medically st abilized d/w staff Electronically Signed by Jessica Parson MD on at 1336 RPT #:[id number] END OF REPORT 2020-07-01 11:35:00-00:00 [id number] [facility] [id number] [facility] [address] [place] [address] PATIENT NAME: JORGE GOINS ADMIT DATE: 06/19 ACCOUNT NO: [id number] ROOM NO: [place] [address] AGE: 34 REPORT TYPE: eECHOCARDIOGRAM REPORT. SEX: M ADMITTING PHYSICIAN:Edy Olmedo MD ATTENDING PHYSICIAN:Edy Olmedo MD *[facility]* [address] [place] [address] Limited Transthoracic Echocardiogram Patient: Jorge Goins Study Date: 06/29/2020 BP: 133 / 68 Location: [facility] URN: [id number] : 1985 Age: 34 Height: 71 in / 180.3 cm Gender: M Weight: 246 .5 lb / 112 kg BMI/BSA: 34.4 kg/m 2 / 2.31 m 2 *Ordering Physician: * Tai Haynes R1 *Interpreting Physician: * Maribeth Daugherty MD *Customer Technical Services Manager: * Deb Fritz Indications: STROKE. Study data: Transthoracic echocardiogram, limite d study. Procedure: Transthoracic echocardiography was performed. In travenous contrast (agitated saline) was administered. Limited 2D a nd limited spectral Doppler. Patient status: Inpatient. Patient room number: ICC20. Study status: Stat. Findings Left ventricle: The cavity size is normal. Wall thickness is moderately increased. Systolic function is mildly reduced. The estimated ejection fraction is 40-44%. Paradoxical septal motion fan ggestive of right ventricular volume/pressure overload. Right ventricle: The cavity size is normal. Wall thickness is mildly increased. Systolic function is normal. PATIENT NAME: JORGE GOINS [id number] Left atrium: The atrium is normal in size. Right atrium: The atrium is normal in size. Atrial septum: Mobile interatrial septum Aorta: Aortic root: The aortic root is normal in size. Aortic valve: The valve is structurally normal. The valve is trileaflet. There is no evidence of stenosis. Th ere is no regurgitation. Mitral valve: Not well visualized. Tricuspid valve: Not well visualized. Pulmonic valve: Not well visualized. Pericardium: A trivial pericardial effusion is i dentified. Systemic veins: Inferior vena cava: The vessel is dilated. Respi rophasic changes in dimension are absent. Measurements Left ventricle Value 06/25/2020 Ref JULIET, LAX 5.2 cm 5.2 4.2 - 5.8 ESD, LAX 4.0 cm 4.2 2.5 - 4.0 ESD/bsa, 1.7 cm/m 2 1.9 1.3 - 2.1 LAX FS, LAX 23 % 20 25 - 43 PW, ED 1.4 cm 1.7 0.6 - 1.0 PW, ES 1.8 cm 2.4 --------- IVS/PW, ED 0.96 1.13 --------- EF 46 % 41 52 - 72 LVOT Value 06/25/2020 Ref Peak matt, 1.12 m/sec 0.95 --------- S Mean matt, 0.84 m/sec 0.72 --------- S VTI, S 17.8 cm 16.0 --------- Peak grad, 5 mm Hg 4 --------- S Mean grad, 3 mm Hg 2 --------- S Ventricular septum Value 06/25/2020 Ref IVS, ED 1.4 cm 1.9 0.6 - 1.0 IVS, ES 1.9 cm 1.8 --------- Aortic valve Value 06/25/2020 Ref Peak v, S 1.76 m/sec 1.75 --------- Mean v, S 1.18 m/sec 1.22 --------- VTI, S 23.9 cm 28.5 --------- Mean grad, 6.4 mm Hg 6.7 --------- S Peak grad, 12.3 mm Hg 12.2 --------- S LVOT/AV, 0.74 0.56 --------- VTI ratio PATIENT NAME: JORGE GOINS [id number] LVOT/AV, 0.64 0.55 --------- Vpeak ratio Conclusions Summary: 1. Limited echocardiogram with bubble study. 2. Left ventricle: The cavity size is normal. Wa ll thickness is moderately increased. Systolic function is mild ly reduced. The estimated ejection fraction is 40-44%. Paradoxi nic septal motion suggestive of right ventricular volume/pressure overload. 3. Right ventricle: The cavity size is normal. W all thickness is mildly increased. Systolic function is normal. 4. Atrial septum: Mobile interatrial septum 5. Agitated saline contrast study (bubble study) is positive for right to left inter-atrial shunting. Prepared and electronically signed by Maribeth Daugherty MD 07/01/2020 11:34 at 1135 PATIENT NAME: JORGE GOINS [id number] 0572-01-06 09:57:00-00:00 [facility] REPORT#:[id number] REPORT STATUS: Signed DATE:07/01/20 TIME: 09 PATIENT: JORGE OGINS UNIT #: [id number] ROOM/BED: [address] : [birth year] AGE: 34 SEX: M ATTEND: Luis M Olmedo MD ADM AUTHOR: Giancarlo Izaguirre MD R2 * ALL edits or amendments must be made on the rimidi/computer document * Subjective Comments: remains intubated, sedated Review of Systems Unable to obtain due to: intubated, sedated Objective General VS/I O: Vital Signs: Date Time Temp Pulse Resp B/P B/P Pulse O2 O2 F low FiO2 Mean Ox Delivery Rate 07/01 1255 72 9 98 07/01 1254 74 12 123/62 85 99 07/01 1251 75 26 129/62 88 100 07/01 1245 75 25 130/61 86 100 01/06 1242 75 12 100 01/06 1230 76 21 133/61 88 100 01/06 1215 77 6 133/60 87 100 01/06 1200 77 22 129/60 87 99 01/06 1159 77 22 100 01/06 1158 99.5 100 Ventilator 30 01/06 1156 77 15 100 01/06 1145 78 19 131/62 89 99 01/06 1130 78 15 130/60 86 99 01/06 1115 78 15 131/59 85 99 01/06 1106 78 15 99 01/06 1100 78 18 129/58 84 99 01/06 1046 78 15 99 01/06 1045 78 15 122/56 81 99 01/06 1042 78 10 99 01/06 1030 78 7 133/62 89 99 01/06 1015 79 11 129/60 86 99 01/06 1000 79 7 129/58 84 100 01/06 0945 80 10 124/57 83 99 01/06 0930 80 0 130/59 85 99 01/06 0915 79 12 129/59 85 100 01/06 0900 79 0 126/60 87 100 01/06 0847 100 Ventilator 30 01/06 0847 80 100 30 01/06 0845 80 10 124/59 85 100 01/06 0830 79 7 120/57 82 100 01/06 0815 79 16 120/56 81 99 01/06 0800 100.0 99 Ventilator 30 01/06 0800 79 8 127/55 82 100 01/06 0756 30 01/06 0745 79 22 124/59 85 100 01/06 0736 78 9 98 01/06 0730 78 21 125/60 86 98 01/06 0715 78 15 124/59 85 96 01/06 0700 78 11 122/58 84 96 01/06 0645 78 9 121/58 83 96 01/06 0630 78 17 118/56 80 96 01/06 0615 78 10 122/58 83 96 01/06 0600 79 0 125/59 85 96 01/06 0545 78 14 122/58 84 96 01/06 0530 79 11 123/56 80 96 01/06 0515 76 21 124/58 82 100 01/06 0500 77 9 121/59 80 100 01/06 0500 77 100 30 01/06 0430 78 136/62 89 99 01/06 0415 78 12 141/64 92 98 01/06 0400 99.4 01/06 0400 78 24 144/64 92 100 01/06 0345 78 21 140/63 91 100 01/06 0330 77 10 139/63 91 100 01/06 0315 77 17 132/59 85 100 01/06 0300 76 10 131/59 85 100 01/06 0245 77 16 133/60 87 100 01/06 0230 76 39 123/57 82 100 01/06 0215 76 11 133/60 86 100 01/06 0200 75 10 134/60 87 100 01/06 0145 75 10 127/58 83 100 01/06 0139 75 100 30 01/06 0130 75 8 127/57 82 100 01/06 0115 75 18 121/55 79 100 01/06 0100 74 21 119/57 82 100 01/06 0045 74 12 119/59 83 100 01/06 0030 74 8 121/56 80 100 01/06 0015 74 14 115/57 81 100 01/06 0000 98.5 01/06 0000 74 12 117/55 77 100 01/05 2345 73 11 116/56 81 100 01/05 2330 73 9 117/59 82 100 01/05 2315 72 11 112/54 77 100 01/05 2300 73 16 111/53 77 100 01/05 2245 73 8 114/56 79 100 01/05 2230 73 8 114/56 79 100 01/05 2215 73 12 118/57 82 100 01/05 2200 72 26 125/59 83 100 01/05 2145 71 9 134/62 89 100 01/05 2130 71 5 133/62 89 100 01/05 2115 70 0 130/60 87 100 01/05 2105 100 Ventilator 30 01/05 2105 69 100 30 01/05 2099 69 16 124/58 83 100 01/05 2044 69 13 124/58 83 100 01/05 2030 69 5 125/59 84 100 01/05 2014 70 0 125/58 84 100 01/05 1999 98.3 01/05 1999 Ventilator 30 01/05 1999 72 4 128/60 86 100 01/05 1945 71 29 126/56 81 100 01/05 1930 71 35 124/59 83 100 01/05 1915 69 29 116/59 81 100 01/05 1900 70 28 117/57 80 100 01/05 1845 71 25 118/59 83 100 01/05 1841 70 33 100 01/05 1830 70 30 121/56 80 100 01/05 1815 69 31 119/57 80 100 01/05 1814 70 28 100 01/05 1804 70 32 120/59 80 100 01/05 1800 69 20 125/56 84 100 01/05 1745 69 3 130/63 90 99 01/05 1730 69 16 100 01/05 1723 69 100 30 01/05 1715 70 23 130/62 89 100 01/05 1700 71 11 129/64 90 100 01/05 1645 68 7 137/66 95 100 01/05 1630 67 17 138/68 97 99 01/05 1615 67 12 138/70 98 100 01/05 1600 99.0 01/05 1600 68 24 134/68 94 99 01/05 1545 67 24 137/67 95 100 01/05 1530 66 9 140/67 97 100 01/05 1515 67 11 138/66 95 100 01/05 1500 67 9 140/67 97 100 01/05 1445 66 10 139/68 96 100 01/05 1430 67 11 137/67 96 100 01/05 1415 67 14 136/67 94 100 01/05 1400 67 22 134/66 94 100 01/05 1345 67 19 134/66 94 99 01/05 1330 68 15 133/65 92 100 01/05 1315 68 3 136/65 93 100 24 hour I O ending at 0700: 01/06 0700 01/05 1900 Intake Total 3351.00 2787.00 Output Total 5800 5300 Balance -2449.00 -2513.00 Intake, IV 2981.00 2720.00 Intake, Oral 0 Intake, Tube 120 67 Feeding Intake, Tube 250 Irrigant Output, Stool 50 Output, Urine 5750 5300 Patient 103.6 kg Weight Weight Bed scale Measurement Method Medications Active Meds + DC'd Last 24 Hrs Cefazolin Sodium 1 GM PREOP IV (CKD) Sterile Water 10 ML Fentanyl Citrate 0 .STK-MED ONE .ROUTE (DC) Midazolam HCl 0 .STK-MED ONE .ROUTE (DC) Propofol 0 .STK-MED ONE .ROUTE (DC) Perflutren Lipid Microsphere DIRECTED ONCE PRN IV Sodium Chloride DIRECTED ONCE PRN IV Sodium Chloride 5 ML ONCE PRN IV Potassium Bicarbonate/Citric Acid 20 MEQ ASDIR P O (CKD) Potassium Chloride 100 ML ASDIR PRN IV Hydralazine HCl 100 MG Q8HR PO Labetalol HCl 400 MG Q8HR PO Furosemide 100 MG Q20H IV Sodium Chloride 90 ML Isosorbide Mononitrate 30 MG BID PO Magnesium 100 ML ASDIR PRN IV Magnesium Sulfate 50 ML ASDIR PRN IV Magnesium Sulfate 100 ML ASDIR PRN IV Clonidine HCl 0.2 MG Q7D TRANSDERM (CKD) Amlodipine Besylate 5 MG Q12HR PO Aspirin 81 MG DAILY FEED-TUBE (DA) Atorvastatin Calcium 40 MG DAILY FEED-TUBE Albuterol/Ipratropium 3 ML RTQ6H INH Nicardipine HCl 250 ML TITRATE IV Dexmedetomidine HCl 400 MCG TITRATE IV Sodium Chloride 96 ML Dextrose/Water 25 ML ASDIR PRN IV Glucagon 1 MG ASDIR PRN IM Insulin Human Lispro LOW DOSE SCALE ASDIR SUBQ Sterile Water 1 ML ASDIR PRN IM Propofol 100 ML TITRATE IV (CKD) Midazolam HCl 100 ML TITRATE IV (CKD) Epinephrine 8 MG TITRATE IV (CKD) Sodium Chloride 242 ML Norepinephrine Bitartrate 16 MG TITRATE IV Sodium Chloride 234 ML Fentanyl Citrate 50 ML TITRATE IV (DC) Famotidine 20 MG DAILY PO Heparin Sodium (Porcine) 5,000 UNIT Q12HR SUBQ Esmolol HCl 250 ML TITRATE IV (CKD) Physical Exam General appearance: obese, respiratory support, sedated Head/eyes: normal conjunctiva/sclera Neck: no JVD Respiratory: symmetric expansion Genitourinary: zuñiga, urine (appears pink) Extremities: pedal edema improved Musculoskeletal: normal inspection Neuro/RADIOTELEGRAPHIST: SEDATED Hemodialysis access: Type: vascath Psychiatry: unable to evaluate Results Findings/Data: Laboratory Tests 07/01 0407 Blood Gas Puncture Site L Radial ABG pH (7.35 - 7.45 pH units) 7.48 H ABG pCO2 (35 - 48 mmHg) 37.1 ABG pO2 (83 - 108 mmHg) 109.3 H ABG PO2/FiO2 Ratio (mm/Hg) 364.33 ABG HCO3 (21 - 28 mmol/L) 27.5 ABG Total CO2 (22 - 29 mmol/L) 27.1 ABG O2 Sat Calc/Denise (94 - 98 %) 98.6 H ABG Base Excess (-2 - 3 mmol/L) 3.8 H Emmanuel Test N/A Sodium (138 - 146 mmol/L) 143 Potassium (3.5 - 4.5 mmol/L) 3.6 Ionized Calcium (1.15 - 1.33 MMOL/L) 1.13 L Respiration Rate (12 - 20 /MIN) 12 O2 Delivery Device Adult Vent Vent Mode SIMV(VC)+PS FiO2 (%) 30 Instrument (Specimen Descript) Arterial Laboratory Tests 07/01 07/01 07/01 07/01 06/30 1144 0822 0407 0326 2155 Chemistry Sodium (137 - 145 mmol/L) 141 Potassium (3.4 - 5.0 mmol/L) 3.8 Chloride (98 - 107 mmol/L) 104 Carbon Dioxide (22 - 30 mmol/L) 31 H BUN (9 - 20 mg/dL) 29 H Creatinine (0.7 - 1.3 mg/dL) 1.2 Glomerular Filtr Rate (>60) 90 Glucose (74 - 106 mg/dL) 84 POC Glucose (74 - 106 MG/DL) 86 87 88 90 Calcium (8.4 - 10.2 mg/dL) 8.7 06/30 1738 Chemistry POC Glucose (74 - 106 MG/DL) 88 Laboratory Tests 07/01 0326 Hematology WBC (5.0 - 12.0 x10 3/uL) 8.4 RBC (4.70 - 6.10 x10 6/uL) 3.30 L Hgb (14.0 - 18.0 g/dL) 9.4 L Hct (37.0 - 49.0 %) 30.7 L MCV (80 - 94 fL) 93 MCH (27 - 31 pg) 28.5 MCHC (33 - 37 g/dL) 30.6 L RDW (11.5 - 15.5 %) 16.0 H Plt Count (130 - 400 x10 3/uL) 256 MPV (9.4 - 16.4 fL) 11.1 Neut % (Auto) (43 - 65 %) 86.2 H Lymph % (Auto) (20.5 - 45.5 %) 4.4 L Citrus % (Auto) (5.5 - 11.7 %) 7.1 Eos % (Auto) (0.9 - 2.9 %) 1.7 Baso % (Auto) (0.2 - 1.0 %) 0.2 Neut # (Auto) (2.2 - 4.8 x10 3/uL) 7.28 H Lymph # (Auto) (1.3 - 2.9 x10 3/uL) 0.37 L Citrus # (Auto) (0.3 - 0.8 x10 3/uL) 0.60 Eos # (Auto) (0.0 - 0.2 x10 3/uL) 0.14 Baso # (Auto) (0.0 - 0.1 x10 3/uL) 0.02 Immature Gran % (0.0 - 2.0 %) 0.4 Nucleated RBC % (0 - 1.0 %) 0.0 Laboratory Tests 06/30 1739 Serology SARS-CoV-2 Ag (Rapid) (Negative) NEGATIVE Diagnosis, Assessment Plan Free Text A P: JENNIFER hypotension AAA lactic acidosis severe metabolic acidosis Cr stable; noted increase in bicarb; will monito r ABG 7.48 pH lasix gtt per cards --> 11L charted from 7am-7am Acidosis resolved plan noted for trach/peg will monitor Electronically Signed by Giancarlo Izaguirre MD R2 on at 1357 RPT #:[id number] END OF REPORT 2020-07-01 09:57:00-00:[address] [facility] ([facility]) Nephrology Progress Note REPORT#:[id number] REPORT STATUS: Signed DATE:07/01/20 TIME: 956 PATIENT: JORGE GOINS UNIT #: [id number] ROOM/BED: [address] : [birth year] AGE: 34 SEX: M ATTEND: Luis M Olmedo MD ADM AUTHOR: Giancarlo Izaguirre MD R2 * ALL edits or amendments must be made on the rimidi/computer document * Giancarlo Izaguirre 07/01/20 0957: Subjective Comments: remains intubated, sedated Review of Systems Unable to obtain due to: intubated, sedated Objective General VS/I O: Vital Signs: Date Time Temp Pulse Resp B/P B/P Pulse O2 O2 F low FiO2 Mean Ox Delivery Rate 07/01 1255 72 9 98 07/01 1254 74 12 123/62 85 99 01/06 1251 75 26 129/62 88 100 01/06 1245 75 25 130/61 86 100 01/06 1242 75 12 100 01/06 1230 76 21 133/61 88 100 01/06 1215 77 6 133/60 87 100 01/06 1200 77 22 129/60 87 99 01/06 1159 77 22 100 01/06 1158 99.5 100 Ventilator 30 01/06 1156 77 15 100 01/06 1145 78 19 131/62 89 99 01/06 1130 78 15 130/60 86 99 01/06 1115 78 15 131/59 85 99 01/06 1106 78 15 99 01/06 1100 78 18 129/58 84 99 01/06 1046 78 15 99 01/06 1045 78 15 122/56 81 99 01/06 1042 78 10 99 01/06 1030 78 7 133/62 89 99 01/06 1015 79 11 129/60 86 99 01/06 1000 79 7 129/58 84 100 01/06 0945 80 10 124/57 83 99 01/06 0930 80 0 130/59 85 99 01/06 0915 79 12 129/59 85 100 01/06 0900 79 0 126/60 87 100 01/06 0847 100 Ventilator 30 01/06 0847 80 100 30 01/06 0845 80 10 124/59 85 100 01/06 0830 79 7 120/57 82 100 01/06 0815 79 16 120/56 81 99 01/06 0800 100.0 99 Ventilator 30 01/06 0800 79 8 127/55 82 100 01/06 0756 30 01/06 0745 79 22 124/59 85 100 01/06 0736 78 9 98 01/06 0730 78 21 125/60 86 98 01/06 0715 78 15 124/59 85 96 01/06 0700 78 11 122/58 84 96 01/06 0645 78 9 121/58 83 96 01/06 0630 78 17 118/56 80 96 01/06 0615 78 10 122/58 83 96 01/06 0600 79 0 125/59 85 96 01/06 0545 78 14 122/58 84 96 01/06 0530 79 11 123/56 80 96 01/06 0515 76 21 124/58 82 100 01/06 0500 77 9 121/59 80 100 01/06 0500 77 100 30 01/06 0430 78 136/62 89 99 01/06 0415 78 12 141/64 92 98 01/06 0400 99.4 01/06 0400 78 24 144/64 92 100 01/06 0345 78 21 140/63 91 100 01/06 0330 77 10 139/63 91 100 01/06 0315 77 17 132/59 85 100 01/06 0300 76 10 131/59 85 100 01/06 0245 77 16 133/60 87 100 01/06 0230 76 39 123/57 82 100 01/06 0215 76 11 133/60 86 100 01/06 0200 75 10 134/60 87 100 01/06 0145 75 10 127/58 83 100 01/06 0139 75 100 30 01/06 0130 75 8 127/57 82 100 01/06 0115 75 18 121/55 79 100 01/06 0100 74 21 119/57 82 100 01/06 0045 74 12 119/59 83 100 01/06 0030 74 8 121/56 80 100 01/06 0015 74 14 115/57 81 100 01/06 0000 98.5 01/06 0000 74 12 117/55 77 100 01/05 2345 73 11 116/56 81 100 01/05 2330 73 9 117/59 82 100 01/05 2315 72 11 112/54 77 100 01/05 2300 73 16 111/53 77 100 01/05 2245 73 8 114/56 79 100 01/05 2230 73 8 114/56 79 100 01/05 2215 73 12 118/57 82 100 01/05 2200 72 26 125/59 83 100 01/05 2145 71 9 134/62 89 100 01/05 2130 71 5 133/62 89 100 01/05 5 70 0 130/60 87 100 01/05 2105 100 Ventilator 30 01/05 2105 69 100 30 01/05 2100 69 16 124/58 83 100 01/05 2044 69 13 124/58 83 100 01/05 2029 69 5 125/59 84 100 01/05 2014 70 0 125/58 84 100 01/05 1999 98.3 01/05 1999 Ventilator 30 01/05 1999 72 4 128/60 86 100 01/05 1945 71 29 126/56 81 100 01/05 1930 71 35 124/59 83 100 01/05 1915 69 29 116/59 81 100 01/05 1900 70 28 117/57 80 100 01/05 1845 71 25 118/59 83 100 01/05 1841 70 33 100 01/05 1830 70 30 121/56 80 100 01/05 1815 69 31 119/57 80 100 01/05 1814 70 28 100 01/05 1804 70 32 120/59 80 100 01/05 1800 69 20 125/56 84 100 01/05 1745 69 3 130/63 90 99 01/05 1730 69 16 100 01/05 1723 69 100 30 01/05 1715 70 23 130/62 89 100 01/05 1700 71 11 129/64 90 100 01/05 1645 68 7 137/66 95 100 01/05 1630 67 17 138/68 97 99 01/05 1615 67 12 138/70 98 100 01/05 1600 99.0 01/05 1600 68 24 134/68 94 99 01/05 1545 67 24 137/67 95 100 01/05 1530 66 9 140/67 97 100 01/05 1515 67 11 138/66 95 100 01/05 1500 67 9 140/67 97 100 01/05 1445 66 10 139/68 96 100 01/05 1430 67 11 137/67 96 100 01/05 1415 67 14 136/67 94 100 01/05 1400 67 22 134/66 94 100 01/05 1345 67 19 134/66 94 99 01/05 1330 68 15 133/65 92 100 01/05 1315 68 3 136/65 93 100 24 hour I O ending at 0700: 01/06 0700 01/05 1900 Intake Total 3351.00 2787.00 Output Total 5800 5300 Balance -2449.00 -2513.00 Intake, IV 2981.00 2720.00 Intake, Oral 0 Intake, Tube 120 67 Feeding Intake, Tube 250 Irrigant Output, Stool 50 Output, Urine 5750 5300 Patient 103.6 kg Weight Weight Bed scale Measurement Method Medications Active Meds + DC'd Last 24 Hrs Cefazolin Sodium 1 GM PREOP IV (CKD) Sterile Water 10 ML Fentanyl Citrate 0 .STK-MED ONE .ROUTE (DC) Midazolam HCl 0 .STK-MED ONE .ROUTE (DC) Propofol 0 .STK-MED ONE .ROUTE (DC) Perflutren Lipid Microsphere DIRECTED ONCE PRN IV Sodium Chloride DIRECTED ONCE PRN IV Sodium Chloride 5 ML ONCE PRN IV Potassium Bicarbonate/Citric Acid 20 MEQ ASDIR P O (CKD) Potassium Chloride 100 ML ASDIR PRN IV Hydralazine HCl 100 MG Q8HR PO Labetalol HCl 400 MG Q8HR PO Furosemide 100 MG Q20H IV Sodium Chloride 90 ML Isosorbide Mononitrate 30 MG BID PO Magnesium 100 ML ASDIR PRN IV Magnesium Sulfate 50 ML ASDIR PRN IV Magnesium Sulfate 100 ML ASDIR PRN IV Clonidine HCl 0.2 MG Q7D TRANSDERM (CKD) Amlodipine Besylate 5 MG Q12HR PO Aspirin 81 MG DAILY FEED-TUBE (DA) Atorvastatin Calcium 40 MG DAILY FEED-TUBE Albuterol/Ipratropium 3 ML RTQ6H INH Nicardipine HCl 250 ML TITRATE IV Dexmedetomidine HCl 400 MCG TITRATE IV Sodium Chloride 96 ML Dextrose/Water 25 ML ASDIR PRN IV Glucagon 1 MG ASDIR PRN IM Insulin Human Lispro LOW DOSE SCALE ASDIR SUBQ Sterile Water 1 ML ASDIR PRN IM Propofol 100 ML TITRATE IV (CKD) Midazolam HCl 100 ML TITRATE IV (CKD) Epinephrine 8 MG TITRATE IV (CKD) Sodium Chloride 242 ML Norepinephrine Bitartrate 16 MG TITRATE IV Sodium Chloride 234 ML Fentanyl Citrate 50 ML TITRATE IV (DC) Famotidine 20 MG DAILY PO Heparin Sodium (Porcine) 5,000 UNIT Q12HR SUBQ Esmolol HCl 250 ML TITRATE IV (CKD) Physical Exam General appearance: obese, respiratory support, sedated Head/eyes: normal conjunctiva/sclera Neck: no JVD Respiratory: symmetric expansion Genitourinary: zuñiga, urine (appears pink) Extremities: pedal edema improved Musculoskeletal: normal inspection Neuro/RADIOTELEGRAPHIST: SEDATED Hemodialysis access: Type: vascath Psychiatry: unable to evaluate Results Findings/Data: Laboratory Tests 07/01 040 Blood Gas Puncture Site L Radial ABG pH (7.35 - 7.45 pH units) 7.48 H ABG pCO2 (35 - 48 mmHg) 37.1 ABG pO2 (83 - 108 mmHg) 109.3 H ABG PO2/FiO2 Ratio (mm/Hg) 364.33 ABG HCO3 (21 - 28 mmol/L) 27.5 ABG Total CO2 (22 - 29 mmol/L) 27.1 ABG O2 Sat Calc/Denise (94 - 98 %) 98.6 H ABG Base Excess (-2 - 3 mmol/L) 3.8 H Emmanuel Test N/A Sodium (138 - 146 mmol/L) 143 Potassium (3.5 - 4.5 mmol/L) 3.6 Ionized Calcium (1.15 - 1.33 MMOL/L) 1.13 L Respiration Rate (12 - 20 /MIN) 12 O2 Delivery Device Adult Vent Vent Mode SIMV(VC)+PS FiO2 (%) 30 Instrument (Specimen Descript) Arterial Laboratory Tests 07/01 07/01 07/01 07/01 06/30 1144 0822 0407 0326 2155 Chemistry Sodium (137 - 145 mmol/L) 141 Potassium (3.4 - 5.0 mmol/L) 3.8 Chloride (98 - 107 mmol/L) 104 Carbon Dioxide (22 - 30 mmol/L) 31 H BUN (9 - 20 mg/dL) 29 H Creatinine (0.7 - 1.3 mg/dL) 1.2 Glomerular Filtr Rate (>60) 90 Glucose (74 - 106 mg/dL) 84 POC Glucose (74 - 106 MG/DL) 86 87 88 90 Calcium (8.4 - 10.2 mg/dL) 8.7 06/30 1738 Chemistry POC Glucose (74 - 106 MG/DL) 88 Laboratory Tests 07/01 0326 Hematology WBC (5.0 - 12.0 x10 3/uL) 8.4 RBC (4.70 - 6.10 x10 6/uL) 3.30 L Hgb (14.0 - 18.0 g/dL) 9.4 L Hct (37.0 - 49.0 %) 30.7 L MCV (80 - 94 fL) 93 MCH (27 - 31 pg) 28.5 MCHC (33 - 37 g/dL) 30.6 L RDW (11.5 - 15.5 %) 16.0 H Plt Count (130 - 400 x10 3/uL) 256 MPV (9.4 - 16.4 fL) 11.1 Neut % (Auto) (43 - 65 %) 86.2 H Lymph % (Auto) (20.5 - 45.5 %) 4.4 L Citrus % (Auto) (5.5 - 11.7 %) 7.1 Eos % (Auto) (0.9 - 2.9 %) 1.7 Baso % (Auto) (0.2 - 1.0 %) 0.2 Neut # (Auto) (2.2 - 4.8 x10 3/uL) 7.28 H Lymph # (Auto) (1.3 - 2.9 x10 3/uL) 0.37 L Citrus # (Auto) (0.3 - 0.8 x10 3/uL) 0.60 Eos # (Auto) (0.0 - 0.2 x10 3/uL) 0.14 Baso # (Auto) (0.0 - 0.1 x10 3/uL) 0.02 Immature Gran % (0.0 - 2.0 %) 0.4 Nucleated RBC % (0 - 1.0 %) 0.0 Laboratory Tests 06/30 1739 Serology SARS-CoV-2 Ag (Rapid) (Negative) NEGATIVE Diagnosis, Assessment Plan Free Text A P: JENNIFER hypotension AAA lactic acidosis severe metabolic acidosis Cr stable; noted increase in bicarb; will monito r ABG 7.48 pH lasix gtt per cards --> 11L charted from 7am-7am Acidosis resolved plan noted for trach/peg will monitor Jojo York 07/03/20 1657: Attestations 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 ([facility]) Critical Care Progress Note REPORT#:[id number] REPORT STATUS: Signed DATE:06/30/20 TIME: 2344 PATIENT: JORGE GOINS UNIT #: [id number] ROOM/BED: [address] : [birth year] AGE: 34 SEX: M ATTEND: Luis M Olmedo MD ADM AUTHOR: Edy Olmedo MD * ALL edits or amendments must be made on the el [employer]/computer document * Subjective Chief Complaint: encephlaopthic still uncontrolled bp Objective Physical Exam Head/Eyes: atraumatic, normocephalic Cardiovascular: normal heart sounds, normal S1 S 2, normal rate and rhythm Respiratory/Chest: aerating well, clear to auscu ltation Abdomen: soft, non-tender, normal bowel sounds, no distention Extremities: no edema Neuro/RADIOTELEGRAPHIST: disoriented Diagnosis, Assessment Plan Free text A P: 34 year old male with history of aortic dissecti on s/p EVAR came in for hypertensive urgency A/P: Neuro -intubated -MRI multiple ischemic cva #AMS -MRI multifocal cva -on versed -EEG pending -neuro following Pulm -s/p intubation following cardiac arrest -on FiO2 28% -ABG this AM 7.47/29.3/118.3/21.1 -mental status not optimal for extubation Airway protection is an issue will proceed with trach CV #s/p Cardiac Arrest - PEA hypotensive. ROSC achieved after 9 minutes - likely from cardiogenic shock EF 30-34% - off all pressors - Aortic dissection ruled out from CTA chest , a bdomen and pelvis #hx of EVAR for aortic dissection and h/o endole ak in the past - per vascular surgery -uncontrolled hypertension wean esmolol wean cardene ECHO WMA check with cardiology about need for heart cath #HTN -restart coreg -on cardene -cardio following -monitor #Hypertension norvasc hydralazine wean esmolol wean cardene GI on tube feeding Renal #JENNIFER stable started on lasix drip my cardiology gi ppx: pepcid dvt ppx: heparin Diet: tube feeds condition critical prognosis guarded CC time more than 45 minutes Reviewed chart/images Excludes all procedure time Electronically Signed by Edy Olmedo MD on 05/16 at [facility] RPT #:[id number] END OF REPORT 2020-06-30 19:20:00-00:00 [facility] Cardiology Progress Note REPORT#:[id number] REPORT STATUS: Signed DATE:06/30/20 TIME: 1919 PATIENT: JORGE GOINS UNIT #: [id number] ROOM/BED: [address] : [birth year] AGE: 34 SEX: M ATTEND: Luis M Olmedo MD ADM AUTHOR: Giancarlo Phan MD * ALL edits or amendments must be made on the el [employer]/computer document * Subjective Free Text Subj Notes Free Text Subj Notes: Patient still intubated and sedated. They try to extubate her however he is hypertensive and somewhat agitated. Does not laisha ear failure patient is following commands Objective Physical Exam Head/Eyes: atraumatic, normocephalic, PERRL ENT: moist mucosal membranes, normal nose Neck: non-tender, supple/no meningismus Cardiovascular: CV assessment: regular rate and rhythm, no murm ur Respiratory: no distress, coarse breathsounds, m echanically ventialted Abdomen: soft, non-tender Upper extremity: UE assessment: normal capillary refill, normal temperature Lower extremity: LE assessment: normal capillary refill, normal temperature, no edema Musculoskeletal: normal inspection Neuro/RADIOTELEGRAPHIST: intubated and sedated, withdraws to p ainful stimuli Diagnosis, Assessment Plan Free Text DxA P Notes Free Text DxA P Notes: 1. Hypertensive urgency/emergency - presented with severely elevated BP requiring 2 IV infusions, subsequently suffered PEA cardiac arrest - BP very high - - hydralazine increased to 100 - increase labetalol - clonidine patch added - norvasc added - added ismn 30mg xl bid - wean down cardene and esmlol as much as we ca n - goal bp 120-140/60-80 2. Cardiac arrest - PEA in etiology, pt became hypothermic and sub sequently bradycardic 3. Type B aortic dissection s/p EVAR - has residual descending aortic dissect ion extending into iliacs. No evidence of rupture on CTA. Reviewed by vascular surgery - appreciate assitance - needs aggressive BP Control. 4. Acute on chronic systolic heart failure - likely hypertensive heart disease due to long standing elevated BP - warm and well perfused on examination - need low dose lasix to see if this helps, he i s edematous - check BNP - may need lasix drip 5. Shock - resolved - warm and well perfused on examination 6. JENNIFER on CKD stage 3 - likely secondary to fluctuation in BP - nephrology following, appreciate recommendatio ns - monitor UOP 7. Acute hypoxic respiratory failure - wean from ventilator as tolerated - per ICU te am Given current inability to wean patient will und ergo trach and PEG tube placement. Ultimately his biggest prognostic ind icator will be his true neurologic status. We will continue to monitor mallory glover closely Will follow. Please call if questions. [facility] Cardiology Electronically Signed by Giancarlo Phan MD on 11/13 at 1921 RPT #:[id number] END OF REPORT 2020-06-30 19:07:00-00:[address] [facility] ([facility]) Neurology Progress Note REPORT#:[id number] REPORT STATUS: Signed DATE:06/30/20 TIME: 1906 PATIENT: JORGE GOINS UNIT #: [id number] ROOM/BED: [address] : [address] AGE: 34 SEX: M ATTEND: Luis M Olmedo MD ADM AUTHOR: Tai Haynes MD R1 * ALL edits or amendments must be made on the rimidi/computer document * Subjective Chief Complaint: Lethargy and AMS HPI: Patient is still sedated, was unable to tolerate extubation yesterday. Patient withdraws from pain in upper extremities but not lower extremities. Currently NPO for planned tracheostomy and PEG tube placem ent tomorrow. Patient is not following commands. Patient does not appear to b e in any acute distress. Unable to obtain: intubated, patient condition Review of Systems Unable to obtain due to: Patient is unresponsive and intubated Objective General VS: Last Documented: Result Date Time Pulse Ox 100 06/30 1840 Pulse 70 06/30 1841 Resp 33 06/30 1841 B/P 121/56 06/30 1830 B/P Mean 80 06/30 1830 FiO2 30 06/30 1723 Temp 37.2 06/30 1600 O2 Delivery Ventilator 06/30 0921 O2 Flow Rate 0 06/26 0936 PATIENT WEIGHT: Weight (lb): 239 Weight (oz): 13.81 Weight (kg): 108.800 Medications Current Home Medications ALBUTEROL (PROAIR HFA 90 MCG/ACT 8.5 GM) 2 PUFF INH RTQ6H PRN PRN SOB ASPIRIN EC (ECOTRIN) 81 MG PO DAILY CARVEDILOL (COREG) 25 MG PO BID MEALS ACETAMINOPHEN/CODEINE (TYLENOL WITH CODE INE #4 300/60 MG) 1 TAB PO Q6H PRN PRN PAIN ATORVASTATIN (LIPITOR) 20 MG PO BEDTIME LOSARTAN (COZAAR) 100 MG PO DAILY NIFEdipine CC (ADALAT CC) 90 MG PO Q12HR HYDROCHLOROTHIAZIDE (HYDRODIURIL) 25 MG PO DAILY Active Meds + DC'd Last 24 Hrs Perflutren Lipid Microsphere DIRECTED ONCE PRN IV Sodium Chloride DIRECTED ONCE PRN IV Sodium Chloride 5 ML ONCE PRN IV Potassium Bicarbonate/Citric Acid 20 MEQ ASDIR P O (CKD) Potassium Chloride 100 ML ASDIR PRN IV Hydralazine HCl 100 MG Q8HR PO Labetalol HCl 400 MG Q8HR PO Furosemide 100 MG Q20H IV Sodium Chloride 90 ML Isosorbide Mononitrate 30 MG BID PO Magnesium 100 ML ASDIR PRN IV Magnesium Sulfate 50 ML ASDIR PRN IV Magnesium Sulfate 100 ML ASDIR PRN IV Clonidine HCl 0.2 MG Q7D TRANSDERM (CKD) Amlodipine Besylate 5 MG Q12HR PO Aspirin 81 MG DAILY FEED-TUBE (DA) Atorvastatin Calcium 40 MG DAILY FEED-TUBE Albuterol/Ipratropium 3 ML RTQ6H INH Perflutren Lipid Microsphere DIRECTED ONCE PRN IV (DC) Sodium Chloride DIRECTED ONCE PRN IV (DC) Sodium Chloride 5 ML ONCE PRN IV (DC) Nicardipine HCl 250 ML TITRATE IV Dexmedetomidine HCl 400 MCG TITRATE IV Sodium Chloride 96 ML Dextrose/Water 25 ML ASDIR PRN IV Glucagon 1 MG ASDIR PRN IM Insulin Human Lispro LOW DOSE SCALE ASDIR SUBQ Sterile Water 1 ML ASDIR PRN IM Propofol 100 ML TITRATE IV (CKD) Midazolam HCl 100 ML TITRATE IV (CKD) Epinephrine 8 MG TITRATE IV (CKD) Sodium Chloride 242 ML Norepinephrine Bitartrate 16 MG TITRATE IV Sodium Chloride 234 ML Perflutren Lipid Microsphere DIRECTED ONCE PRN IV (DC) Sodium Chloride DIRECTED ONCE PRN IV (DC) Sodium Chloride 5 ML ONCE PRN IV (DC) Fentanyl Citrate 50 ML TITRATE IV (CKD) Famotidine 20 MG DAILY PO Heparin Sodium (Porcine) 5,000 UNIT Q12HR SUBQ Esmolol HCl 250 ML TITRATE IV (CKD) Nutrition asessment: The data set between the solid lines has been im ported from the dietitian's assessment. Any exceptions have been noted under Provider comments. BMI Calculated: 33.5 Nutrition related diagnosis: Obese Nutrition diagnosis details: BMI 30-39.9 Nutrition problem: Inadequate oral intake Nutrition etiology: RESPIRATORY STATUS Nutrition signs and symptoms: PT SEDATED ON MECH ANICAL VENT,, NPO, NEED FOR ENTERAL NUTRITIO, N Nutrition prescription: -RECOMMEND DECREASE JEVI TY 1.5 TO 20 ML/HR (PROVIDES 720 KCAL, 27 GM PRO, 387 ML FREE WATER, AND 480 ML TOTAL VOLUME) PT RECEIVING ADDITIONAL 1162 KCAL FROM PROPOFOL @ 44 ML/HR RE COMMEND 24 GM HEALTHYSHOT X5/ DAY. FWF 55 ML/HR WITH NO IV F'S. FWF 30 ML Q4H WITH IVF'S. -IF ABLE TO TOLERATE OFF PROPOFOL, RECOMMEND STAY AT GOAL RATE 50 ML/HR W/ HEALTHY SHOT [address] TO F/U PER FNS PROTOCOL. Dietitian name: Ester Cabrera RD LD Assessment completed: 06/29/20 Provider comments on imported dietitian assessme nt: Physical Exam General appearance: obese, responsiveness (unres ponsive) Head/Eyes: atraumatic, normocephalic ENT: moist mucosal membranes Neck: non-tender, supple/no meningismus, no brui t / NL carotids, no masses or swelling Cardiovascular: irregular rate and rhythm, murmu r Respiratory: decreased breath sounds, intubated/ mech vent Abdomen: non-tender, normal bowel sounds, soft Neuro/RADIOTELEGRAPHIST: Sedated Results Findings/Data: Laboratory Tests 06/30 37 Blood Gas Puncture Site R Radial ABG pH (7.35 - 7.45 pH units) 7.46 H ABG pCO2 (35 - 48 mmHg) 34.9 L ABG pO2 (83 - 108 mmHg) 131.6 H ABG PO2/FiO2 Ratio (mm/Hg) 438.66 ABG HCO3 (21 - 28 mmol/L) 24.7 ABG Total CO2 (22 - 29 mmol/L) 24.5 ABG O2 Sat Calc/Denise (94 - 98 %) 99.2 H ABG Base Excess (-2 - 3 mmol/L) 1.1 Emmanuel Test N/A Sodium (138 - 146 mmol/L) 143 Potassium (3.5 - 4.5 mmol/L) 3.8 Ionized Calcium (1.15 - 1.33 MMOL/L) 1.15 Respiration Rate (12 - 20 /MIN) 12 O2 Delivery Device Adult Vent Vent Mode SIMV FiO2 (%) 30 Pressure Support (cmH2O) 10 Instrument (Specimen Descript) Arterial Laboratory Tests 06/30 06/30 06/30 1738 0329 0038 Chemistry Sodium (137 - 145 mmol/L) 141 Potassium (3.4 - 5.0 mmol/L) 3.8 Chloride (98 - 107 mmol/L) 106 Carbon Dioxide (22 - 30 mmol/L) 28 BUN (9 - 20 mg/dL) 31 H Creatinine (0.7 - 1.3 mg/dL) 1.2 Glomerular Filtr Rate (>60) 90 Glucose (74 - 106 mg/dL) 88 POC Glucose (74 - 106 MG/DL) 88 95 Calcium (8.4 - 10.2 mg/dL) 8.3 L Laboratory Tests 06/30 0329 Hematology WBC (5.0 - 12.0 x10 3/uL) 5.8 RBC (4.70 - 6.10 x10 6/uL) 3.24 L Hgb (14.0 - 18.0 g/dL) 9.3 L Hct (37.0 - 49.0 %) 30.1 L MCV (80 - 94 fL) 93 MCH (27 - 31 pg) 28.7 MCHC (33 - 37 g/dL) 30.9 L RDW (11.5 - 15.5 %) 16.5 H Plt Count (130 - 400 x10 3/uL) 241 MPV (9.4 - 16.4 fL) 11.1 Neut % (Auto) (43 - 65 %) 78.2 H Lymph % (Auto) (20.5 - 45.5 %) 9.8 L Citrus % (Auto) (5.5 - 11.7 %) 9.1 Eos % (Auto) (0.9 - 2.9 %) 1.9 Baso % (Auto) (0.2 - 1.0 %) 0.3 Neut # (Auto) (2.2 - 4.8 x10 3/uL) 4.53 Lymph # (Auto) (1.3 - 2.9 x10 3/uL) 0.57 L Citrus # (Auto) (0.3 - 0.8 x10 3/uL) 0.53 Eos # (Auto) (0.0 - 0.2 x10 3/uL) 0.11 Baso # (Auto) (0.0 - 0.1 x10 3/uL) 0.02 Immature Gran % (0.0 - 2.0 %) 0.7 Nucleated RBC % (0 - 1.0 %) 0.0 Laboratory Tests 06/30 1739 Serology SARS-CoV-2 Ag (Rapid) (Negative) NEGATIVE Diagnosis, Assessment Plan Free Text A P: Assessment 1. Lethargy and AMS- may be due to metabolic encephalopathy and/or hypertensive emergency -On admission, BP was in 226/162 -Patient had PEA on 06/21/2020 -CT brain on 06/21 showed no acute intracranial hemorrhage, with only mild chronic microvascular ischem ic injuries. Also, there are faint calcifications in the bilateral basal ganglia. -CT 06/29/2020 showed scattered ventricu lar and subcortical densities that are new and greater than expected for age. -EEG ws abnormal in wakefulness and drowsiness, suggestive of encephalopathy. -As strokes are in different blood supply region s, Echo ordered. -Monitor for paroxysmal atrial fib -Bubble study pending 2.Hypertensive encephalopathy: -On admission, BP was in 226/162 -BP in 120s-130s/60s-70s whi le on multiple blood pressure medications including labetalol, clonidine, isosorbide mononitrate, hy dralazine, amlodipine, nicardipine. -Monitor blood pressure 3. acute resp. failure etc. Plan -Continue with current care -D/w nurse -Will continue to follow -consider repeat EEG if needed -Spoke to patient's aunt Adina Colin yesterday 06/29/2019 to inform her MRI results, neuro status and plan to perform bubble study Electronically Signed by Tai Haynes MD R1 on 0 06/30/20 at 1928 RPT #:[id number] END OF REPORT 2020-06-30 19:07:00-00:[address] [facility] ([facility]) Neurology Progress Note REPORT#:[id number] REPORT STATUS: Signed DATE:06/30/20 TIME: 1906 PATIENT: JORGE GOINS UNIT #: [id number] ROOM/BED: [address] : [birth year] AGE: 34 SEX: M ATTEND: Yoseph Olmedo MD ADM AUTHOR: Tai Haynes MD R1 * ALL edits or amendments must be made on the rimidi/computer document * Tai Haynes 06/30/201906: Subjective Chief Complaint: Lethargy and AMS HPI: Patient is still sedated, was unable to tolerate extubation yesterday. Patient withdraws from pain in upper extremities but not lower extremities. Currently NPO for planned tracheostomy and PEG tube placem ent tomorrow. Patient is not following commands. Patient does not appear to b e in any acute distress. Unable to obtain: intubated, patient condition Review of Systems Unable to obtain due to: Patient is unresponsive and intubated Objective General VS: Last Documented: Result Date Time Pulse Ox 100 06/30 1840 Pulse 70 06/30 1841 Resp 33 06/30 1841 B/P 121/56 06/30 1830 B/P Mean 80 06/30 1830 FiO2 30 06/30 1723 Temp 37.2 06/30 1600 O2 Delivery Ventilator 06/30 0921 O2 Flow Rate 0 06/26 0936 PATIENT WEIGHT: Weight (lb): 239 Weight (oz): 13.81 Weight (kg): 108.800 Medications Current Home Medications ALBUTEROL (PROAIR HFA 90 MCG/ACT 8.5 GM) 2 PUFF INH RTQ6H PRN PRN SOB ASPIRIN EC (ECOTRIN) 81 MG PO DAILY CARVEDILOL (COREG) 25 MG PO BID MEALS ACETAMINOPHEN/CODEINE (TYLENOL WITH CODE INE #4 300/60 MG) 1 TAB PO Q6H PRN PRN PAIN ATORVASTATIN (LIPITOR) 20 MG PO BEDTIME LOSARTAN (COZAAR) 100 MG PO DAILY NIFEdipine CC (ADALAT CC) 90 MG PO Q12HR HYDROCHLOROTHIAZIDE (HYDRODIURIL) 25 MG PO DAILY Active Meds + DC'd Last 24 Hrs Perflutren Lipid Microsphere DIRECTED ONCE PRN IV Sodium Chloride DIRECTED ONCE PRN IV Sodium Chloride 5 ML ONCE PRN IV Potassium Bicarbonate/Citric Acid 20 MEQ ASDIR P O (CKD) Potassium Chloride 100 ML ASDIR PRN IV Hydralazine HCl 100 MG Q8HR PO Labetalol HCl 400 MG Q8HR PO Furosemide 100 MG Q20H IV Sodium Chloride 90 ML Isosorbide Mononitrate 30 MG BID PO Magnesium 100 ML ASDIR PRN IV Magnesium Sulfate 50 ML ASDIR PRN IV Magnesium Sulfate 100 ML ASDIR PRN IV Clonidine HCl 0.2 MG Q7D TRANSDERM (CKD) Amlodipine Besylate 5 MG Q12HR PO Aspirin 81 MG DAILY FEED-TUBE (DA) Atorvastatin Calcium 40 MG DAILY FEED-TUBE Albuterol/Ipratropium 3 ML RTQ6H INH Perflutren Lipid Microsphere DIRECTED ONCE PRN IV (DC) Sodium Chloride DIRECTED ONCE PRN IV (DC) Sodium Chloride 5 ML ONCE PRN IV (DC) Nicardipine HCl 250 ML TITRATE IV Dexmedetomidine HCl 400 MCG TITRATE IV Sodium Chloride 96 ML Dextrose/Water 25 ML ASDIR PRN IV Glucagon 1 MG ASDIR PRN IM Insulin Human Lispro LOW DOSE SCALE ASDIR SUBQ Sterile Water 1 ML ASDIR PRN IM Propofol 100 ML TITRATE IV (CKD) Midazolam HCl 100 ML TITRATE IV (CKD) Epinephrine 8 MG TITRATE IV (CKD) Sodium Chloride 242 ML Norepinephrine Bitartrate 16 MG TITRATE IV Sodium Chloride 234 ML Perflutren Lipid Microsphere DIRECTED ONCE PRN IV (DC) Sodium Chloride DIRECTED ONCE PRN IV (DC) Sodium Chloride 5 ML ONCE PRN IV (DC) Fentanyl Citrate 50 ML TITRATE IV (CKD) Famotidine 20 MG DAILY PO Heparin Sodium (Porcine) 5,000 UNIT Q12HR SUBQ Esmolol HCl 250 ML TITRATE IV (CKD) Nutrition asessment: The data set between the solid lines has been im ported from the dietitian's assessment. Any exceptions have been noted under Provider comments. BMI Calculated: 33.5 Nutrition related diagnosis: Obese Nutrition diagnosis details: BMI 30-39.9 Nutrition problem: Inadequate oral intake Nutrition etiology: RESPIRATORY STATUS Nutrition signs and symptoms: PT SEDATED ON MECH ANICAL VENT,, NPO, NEED FOR ENTERAL NUTRITIO, N Nutrition prescription: -RECOMMEND DECREASE JEVI TY 1.5 TO 20 ML/HR (PROVIDES 720 KCAL, 27 GM PRO, 387 ML FREE WATER, AND 480 ML TOTAL VOLUME) PT RECEIVING ADDITIONAL 1162 KCAL FROM PROPOFOL @ 44 ML/HR RE COMMEND 24 GM HEALTHYSHOT X5/ DAY. FWF 55 ML/HR WITH NO IV F'S. FWF 30 ML Q4H WITH IVF'S. -IF ABLE TO TOLERATE OFF PROPOFOL, RECOMMEND STAY AT GOAL RATE 50 ML/HR W/ HEALTHY SHOT [address] TO F/U PER FNS PROTOCOL. Dietitian name: Ester Cabrera RD LD Assessment completed: 06/29/20 Provider comments on imported dietitian assessme nt: Physical Exam General appearance: obese, responsiveness (unres ponsive) Head/Eyes: atraumatic, normocephalic ENT: moist mucosal membranes Neck: non-tender, supple/no meningismus, no brui t / NL carotids, no masses or swelling Cardiovascular: irregular rate and rhythm, murmu r Respiratory: decreased breath sounds, intubated/ mech vent Abdomen: non-tender, normal bowel sounds, soft Neuro/RADIOTELEGRAPHIST: Sedated Results Findings/Data: Laboratory Tests 06/30 37 Blood Gas Puncture Site R Radial ABG pH (7.35 - 7.45 pH units) 7.46 H ABG pCO2 (35 - 48 mmHg) 34.9 L ABG pO2 (83 - 108 mmHg) 131.6 H ABG PO2/FiO2 Ratio (mm/Hg) 438.66 ABG HCO3 (21 - 28 mmol/L) 24.7 ABG Total CO2 (22 - 29 mmol/L) 24.5 ABG O2 Sat Calc/Denise (94 - 98 %) 99.2 H ABG Base Excess (-2 - 3 mmol/L) 1.1 Emmanuel Test N/A Sodium (138 - 146 mmol/L) 143 Potassium (3.5 - 4.5 mmol/L) 3.8 Ionized Calcium (1.15 - 1.33 MMOL/L) 1.15 Respiration Rate (12 - 20 /MIN) 12 O2 Delivery Device Adult Vent Vent Mode SIMV FiO2 (%) 30 Pressure Support (cmH2O) 10 Instrument (Specimen Descript) Arterial Laboratory Tests 06/30 06/30 06/30 1738 0329 0038 Chemistry Sodium (137 - 145 mmol/L) 141 Potassium (3.4 - 5.0 mmol/L) 3.8 Chloride (98 - 107 mmol/L) 106 Carbon Dioxide (22 - 30 mmol/L) 28 BUN (9 - 20 mg/dL) 31 H Creatinine (0.7 - 1.3 mg/dL) 1.2 Glomerular Filtr Rate (>60) 90 Glucose (74 - 106 mg/dL) 88 POC Glucose (74 - 106 MG/DL) 88 95 Calcium (8.4 - 10.2 mg/dL) 8.3 L Laboratory Tests 06/30 0329 Hematology WBC (5.0 - 12.0 x10 3/uL) 5.8 RBC (4.70 - 6.10 x10 6/uL) 3.24 L Hgb (14.0 - 18.0 g/dL) 9.3 L Hct (37.0 - 49.0 %) 30.1 L MCV (80 - 94 fL) 93 MCH (27 - 31 pg) 28.7 MCHC (33 - 37 g/dL) 30.9 L RDW (11.5 - 15.5 %) 16.5 H Plt Count (130 - 400 x10 3/uL) 241 MPV (9.4 - 16.4 fL) 11.1 Neut % (Auto) (43 - 65 %) 78.2 H Lymph % (Auto) (20.5 - 45.5 %) 9.8 L Citrus % (Auto) (5.5 - 11.7 %) 9.1 Eos % (Auto) (0.9 - 2.9 %) 1.9 Baso % (Auto) (0.2 - 1.0 %) 0.3 Neut # (Auto) (2.2 - 4.8 x10 3/uL) 4.53 Lymph # (Auto) (1.3 - 2.9 x10 3/uL) 0.57 L Citrus # (Auto) (0.3 - 0.8 x10 3/uL) 0.53 Eos # (Auto) (0.0 - 0.2 x10 3/uL) 0.11 Baso # (Auto) (0.0 - 0.1 x10 3/uL) 0.02 Immature Gran % (0.0 - 2.0 %) 0.7 Nucleated RBC % (0 - 1.0 %) 0.0 Laboratory Tests 06/30 1739 Serology SARS-CoV-2 Ag (Rapid) (Negative) NEGATIVE Diagnosis, Assessment Plan Free Text A P: Assessment 1. Lethargy and AMS- may be due to metabolic encephalopathy and/or hypertensive emergency -On admission, BP was in 226/162 -Patient had PEA on 06/21/2020 -CT brain on 06/21 showed no acute intracranial hemorrhage, with only mild chronic microvascular ischem ic injuries. Also, there are faint calcifications in the bilateral basal ganglia. -CT 06/29/2020 showed scattered ventricu lar and subcortical densities that are new and greater than expected for age. -EEG ws abnormal in wakefulness and drowsiness, suggestive of encephalopathy. -As strokes are in different blood supply region s, Echo ordered. -Monitor for paroxysmal atrial fib -Bubble study pending 2.Hypertensive encephalopathy: -On admission, BP was in 226/162 -BP in 120s-130s/60s-70s whi le on multiple blood pressure medications including labetalol, clonidine, isosorbide mononitrate, hy dralazine, amlodipine, nicardipine. -Monitor blood pressure 3. acute resp. failure etc. Plan -Continue with current care -D/w nurse -Will continue to follow -consider repeat EEG if needed -Spoke to patient's aunt Adina Colin yesterday 06/29/2019 to inform her MRI results, neuro status and plan to perform bubble study Jessica Parson 06/30/20 2879: Attestations Teaching Physician Attestation F/U visit w/ resident: I saw the patient with the resident and agree with the resident's findings and plan. discussed with nurse Electronically Signed by Tai Haynes MD R1 on 0 06/30/20 at 1928 Electronically Signed by Jessica Parson MD on at 2329 RPT #:[id number] END OF REPORT 2020-06-30 19:07:00-00:00 [facility] Neurology Progress Note REPORT#:[id number] REPORT STATUS: Signed DATE:06/30/20 TIME: 1906 PATIENT: JORGE GOINS UNIT #: [id number] ROOM/BED: [address] : [birth year] AGE: 34 SEX: M ATTEND: Luis M Olmedo MD ADM AUTHOR: Tai Haynes MD R1 * ALL edits or amendments must be made on the rimidi/computer document * See Addendum Tai Haynes 06/30/201906: Subjective Chief Complaint: Lethargy and AMS HPI: Patient is still sedated, was unable to tolerate extubation yesterday. Patient withdraws from pain in upper extremities but not lower extremities. Currently NPO for planned tracheostomy and PEG tube placem ent tomorrow. Patient is not following commands. Patient does not appear to b e in any acute distress. Unable to obtain: intubated, patient condition Review of Systems Unable to obtain due to: Patient is unresponsive and intubated Objective General VS: Last Documented: Result Date Time Pulse Ox 100 06/30 184 Pulse 70 06/30 1841 Resp 33 06/30 1841 B/P 121/56 06/30 1830 B/P Mean 80 06/30 1830 FiO2 30 06/30 1723 Temp 37.2 06/30 1600 O2 Delivery Ventilator 06/30 0921 O2 Flow Rate 0 06/26 0936 PATIENT WEIGHT: Weight (lb): 239 Weight (oz): 13.81 Weight (kg): 108.800 Medications Current Home Medications ALBUTEROL (PROAIR HFA 90 MCG/ACT 8.5 GM) 2 PUFF INH RTQ6H PRN PRN SOB ASPIRIN EC (ECOTRIN) 81 MG PO DAILY CARVEDILOL (COREG) 25 MG PO BID MEALS ACETAMINOPHEN/CODEINE (TYLENOL WITH CODE INE #4 300/60 MG) 1 TAB PO Q6H PRN PRN PAIN ATORVASTATIN (LIPITOR) 20 MG PO BEDTIME LOSARTAN (COZAAR) 100 MG PO DAILY NIFEdipine CC (ADALAT CC) 90 MG PO Q12HR HYDROCHLOROTHIAZIDE (HYDRODIURIL) 25 MG PO DAILY Active Meds + DC'd Last 24 Hrs Perflutren Lipid Microsphere DIRECTED ONCE PRN IV Sodium Chloride DIRECTED ONCE PRN IV Sodium Chloride 5 ML ONCE PRN IV Potassium Bicarbonate/Citric Acid 20 MEQ ASDIR P O (CKD) Potassium Chloride 100 ML ASDIR PRN IV Hydralazine HCl 100 MG Q8HR PO Labetalol HCl 400 MG Q8HR PO Furosemide 100 MG Q20H IV Sodium Chloride 90 ML Isosorbide Mononitrate 30 MG BID PO Magnesium 100 ML ASDIR PRN IV Magnesium Sulfate 50 ML ASDIR PRN IV Magnesium Sulfate 100 ML ASDIR PRN IV Clonidine HCl 0.2 MG Q7D TRANSDERM (CKD) Amlodipine Besylate 5 MG Q12HR PO Aspirin 81 MG DAILY FEED-TUBE (DA) Atorvastatin Calcium 40 MG DAILY FEED-TUBE Albuterol/Ipratropium 3 ML RTQ6H INH Perflutren Lipid Microsphere DIRECTED ONCE PRN IV (DC) Sodium Chloride DIRECTED ONCE PRN IV (DC) Sodium Chloride 5 ML ONCE PRN IV (DC) Nicardipine HCl 250 ML TITRATE IV Dexmedetomidine HCl 400 MCG TITRATE IV Sodium Chloride 96 ML Dextrose/Water 25 ML ASDIR PRN IV Glucagon 1 MG ASDIR PRN IM Insulin Human Lispro LOW DOSE SCALE ASDIR SUBQ Sterile Water 1 ML ASDIR PRN IM Propofol 100 ML TITRATE IV (CKD) Midazolam HCl 100 ML TITRATE IV (CKD) Epinephrine 8 MG TITRATE IV (CKD) Sodium Chloride 242 ML Norepinephrine Bitartrate 16 MG TITRATE IV Sodium Chloride 234 ML Perflutren Lipid Microsphere DIRECTED ONCE PRN IV (DC) Sodium Chloride DIRECTED ONCE PRN IV (DC) Sodium Chloride 5 ML ONCE PRN IV (DC) Fentanyl Citrate 50 ML TITRATE IV (CKD) Famotidine 20 MG DAILY PO Heparin Sodium (Porcine) 5,000 UNIT Q12HR SUBQ Esmolol HCl 250 ML TITRATE IV (CKD) Nutrition asessment: The data set between the solid lines has been im ported from the dietitian's assessment. Any exceptions have been noted under Provider comments. BMI Calculated: 33.5 Nutrition related diagnosis: Obese Nutrition diagnosis details: BMI 30-39.9 Nutrition problem: Inadequate oral intake Nutrition etiology: RESPIRATORY STATUS Nutrition signs and symptoms: PT SEDATED ON MECH ANICAL VENT,, NPO, NEED FOR ENTERAL NUTRITIO, N Nutrition prescription: -RECOMMEND DECREASE JEVI TY 1.5 TO 20 ML/HR (PROVIDES 720 KCAL, 27 GM PRO, 387 ML FREE WATER, AND 480 ML TOTAL VOLUME) PT RECEIVING ADDITIONAL 1162 KCAL FROM PROPOFOL @ 44 ML/HR RE COMMEND 24 GM HEALTHYSHOT X5/ DAY. FWF 55 ML/HR WITH NO IV F'S. FWF 30 ML Q4H WITH IVF'S. -IF ABLE TO TOLERATE OFF PROPOFOL, RECOMMEND STAY AT GOAL RATE 50 ML/HR W/ HEALTHY SHOT [address] TO F/U PER FNS PROTOCOL. Dietitian name: JONNATHAN Fine Assessment completed: 06/29/20 Provider comments on imported dietitian assessme nt: Physical Exam General appearance: obese, responsiveness (unres ponsive) Head/Eyes: atraumatic, normocephalic ENT: moist mucosal membranes Neck: non-tender, supple/no meningismus, no brui t / NL carotids, no masses or swelling Cardiovascular: irregular rate and rhythm, murmu r Respiratory: decreased breath sounds, intubated/ mech vent Abdomen: non-tender, normal bowel sounds, soft Neuro/RADIOTELEGRAPHIST: Sedated Results Findings/Data: Laboratory Tests 06/30 37 Blood Gas Puncture Site R Radial ABG pH (7.35 - 7.45 pH units) 7.46 H ABG pCO2 (35 - 48 mmHg) 34.9 L ABG pO2 (83 - 108 mmHg) 131.6 H ABG PO2/FiO2 Ratio (mm/Hg) 438.66 ABG HCO3 (21 - 28 mmol/L) 24.7 ABG Total CO2 (22 - 29 mmol/L) 24.5 ABG O2 Sat Calc/Denise (94 - 98 %) 99.2 H ABG Base Excess (-2 - 3 mmol/L) 1.1 Emmanuel Test N/A Sodium (138 - 146 mmol/L) 143 Potassium (3.5 - 4.5 mmol/L) 3.8 Ionized Calcium (1.15 - 1.33 MMOL/L) 1.15 Respiration Rate (12 - 20 /MIN) 12 O2 Delivery Device Adult Vent Vent Mode SIMV FiO2 (%) 30 Pressure Support (cmH2O) 10 Instrument (Specimen Descript) Arterial Laboratory Tests 06/30 06/30 06/30 1738 0329 0038 Chemistry Sodium (137 - 145 mmol/L) 141 Potassium (3.4 - 5.0 mmol/L) 3.8 Chloride (98 - 107 mmol/L) 106 Carbon Dioxide (22 - 30 mmol/L) 28 BUN (9 - 20 mg/dL) 31 H Creatinine (0.7 - 1.3 mg/dL) 1.2 Glomerular Filtr Rate (>60) 90 Glucose (74 - 106 mg/dL) 88 POC Glucose (74 - 106 MG/DL) 88 95 Calcium (8.4 - 10.2 mg/dL) 8.3 L Laboratory Tests 06/30 0329 Hematology WBC (5.0 - 12.0 x10 3/uL) 5.8 RBC (4.70 - 6.10 x10 6/uL) 3.24 L Hgb (14.0 - 18.0 g/dL) 9.3 L Hct (37.0 - 49.0 %) 30.1 L MCV (80 - 94 fL) 93 MCH (27 - 31 pg) 28.7 MCHC (33 - 37 g/dL) 30.9 L RDW (11.5 - 15.5 %) 16.5 H Plt Count (130 - 400 x10 3/uL) 241 MPV (9.4 - 16.4 fL) 11.1 Neut % (Auto) (43 - 65 %) 78.2 H Lymph % (Auto) (20.5 - 45.5 %) 9.8 L Citrus % (Auto) (5.5 - 11.7 %) 9.1 Eos % (Auto) (0.9 - 2.9 %) 1.9 Baso % (Auto) (0.2 - 1.0 %) 0.3 Neut # (Auto) (2.2 - 4.8 x10 3/uL) 4.53 Lymph # (Auto) (1.3 - 2.9 x10 3/uL) 0.57 L Citrus # (Auto) (0.3 - 0.8 x10 3/uL) 0.53 Eos # (Auto) (0.0 - 0.2 x10 3/uL) 0.11 Baso # (Auto) (0.0 - 0.1 x10 3/uL) 0.02 Immature Gran % (0.0 - 2.0 %) 0.7 Nucleated RBC % (0 - 1.0 %) 0.0 Laboratory Tests 06/30 1739 Serology SARS-CoV-2 Ag (Rapid) (Negative) NEGATIVE Diagnosis, Assessment Plan Free Text A P: Assessment 1. Lethargy and AMS- may be due to metabolic encephalopathy and/or hypertensive emergency -On admission, BP was in 226/162 -Patient had PEA on 06/21/2020 -CT brain on 06/21 showed no acute intracranial hemorrhage, with only mild chronic microvascular ischem ic injuries. Also, there are faint calcifications in the bilateral basal ganglia. -CT 06/29/2020 showed scattered ventricu lar and subcortical densities that are new and greater than expected for age. -EEG ws abnormal in wakefulness and drowsiness, suggestive of encephalopathy. -As strokes are in different blood supply region s, Echo ordered. -Monitor for paroxysmal atrial fib -Bubble study pending 2.Hypertensive encephalopathy: -On admission, BP was in 226/162 -BP in 120s-130s/60s-70s whi le on multiple blood pressure medications including labetalol, clonidine, isosorbide mononitrate, hy dralazine, amlodipine, nicardipine. -Monitor blood pressure 3. acute resp. failure etc. Plan -Continue with current care -D/w nurse -Will continue to follow -consider repeat EEG if needed -Spoke to patient's aunt Adina Colin yesterday 06/29/2019 to inform her MRI results, neuro status and plan to perform bubble study Jessica Parson 06/30/20 2329: Attestations Teaching Physician Attestation F/U visit w/ resident: I saw the patient with the resident and agree with the resident's findings and plan. discussed with nurse Electronically Signed by Tai Haynes MD R1 on 0 06/30/20 at 1928 Electronically Signed by Jessica Parson MD on at 2329 Addendum 1: 06/30/20 2350 by Jessica Parson MD Electronically Signed by Jessica Parson MD on at 2350 RPT #:[id number] END OF REPORT 2020-06-30 19:07:00-00:00 [facility] Neurology Progress Note REPORT#:[id number] REPORT STATUS: Signed DATE:06/30/20 TIME: 1906 PATIENT: JORGE GOINS UNIT #: [id number] ROOM/BED: [address] : [birth year] AGE: 34 SEX: M ATTEND: Luis M Olmedo MD ADM AUTHOR: Tai Haynes MD R1 * ALL edits or amendments must be made on the rimidi/computer document * See Addendum Tai Haynes 06/30/201906: Subjective Chief Complaint: Lethargy and AMS HPI: Patient is still sedated, was unable to tolerate extubation yesterday. Patient withdraws from pain in upper extremities but not lower extremities. Currently NPO for planned tracheostomy and PEG tube placem ent tomorrow. Patient is not following commands. Patient does not appear to b e in any acute distress. Unable to obtain: intubated, patient condition Review of Systems Unable to obtain due to: Patient is unresponsive and intubated Objective General VS: Last Documented: Result Date Time Pulse Ox 100 06/30 1840 Pulse 70 06/30 1841 Resp 33 06/30 1841 B/P 121/56 06/30 183 B/P Mean 80 06/30 1830 FiO2 30 06/30 1723 Temp 37.2 06/30 1600 O2 Delivery Ventilator 06/30 0921 O2 Flow Rate 0 06/26 0936 PATIENT WEIGHT: Weight (lb): 239 Weight (oz): 13.81 Weight (kg): 108.800 Medications Current Home Medications ALBUTEROL (PROAIR HFA 90 MCG/ACT 8.5 GM) 2 PUFF INH RTQ6H PRN PRN SOB ASPIRIN EC (ECOTRIN) 81 MG PO DAILY CARVEDILOL (COREG) 25 MG PO BID MEALS ACETAMINOPHEN/CODEINE (TYLENOL WITH CODE INE #4 300/60 MG) 1 TAB PO Q6H PRN PRN PAIN ATORVASTATIN (LIPITOR) 20 MG PO BEDTIME LOSARTAN (COZAAR) 100 MG PO DAILY NIFEdipine CC (ADALAT CC) 90 MG PO Q12HR HYDROCHLOROTHIAZIDE (HYDRODIURIL) 25 MG PO DAILY Active Meds + DC'd Last 24 Hrs Perflutren Lipid Microsphere DIRECTED ONCE PRN IV Sodium Chloride DIRECTED ONCE PRN IV Sodium Chloride 5 ML ONCE PRN IV Potassium Bicarbonate/Citric Acid 20 MEQ ASDIR P O (CKD) Potassium Chloride 100 ML ASDIR PRN IV Hydralazine HCl 100 MG Q8HR PO Labetalol HCl 400 MG Q8HR PO Furosemide 100 MG Q20H IV Sodium Chloride 90 ML Isosorbide Mononitrate 30 MG BID PO Magnesium 100 ML ASDIR PRN IV Magnesium Sulfate 50 ML ASDIR PRN IV Magnesium Sulfate 100 ML ASDIR PRN IV Clonidine HCl 0.2 MG Q7D TRANSDERM (CKD) Amlodipine Besylate 5 MG Q12HR PO Aspirin 81 MG DAILY FEED-TUBE (DA) Atorvastatin Calcium 40 MG DAILY FEED-TUBE Albuterol/Ipratropium 3 ML RTQ6H INH Perflutren Lipid Microsphere DIRECTED ONCE PRN IV (DC) Sodium Chloride DIRECTED ONCE PRN IV (DC) Sodium Chloride 5 ML ONCE PRN IV (DC) Nicardipine HCl 250 ML TITRATE IV Dexmedetomidine HCl 400 MCG TITRATE IV Sodium Chloride 96 ML Dextrose/Water 25 ML ASDIR PRN IV Glucagon 1 MG ASDIR PRN IM Insulin Human Lispro LOW DOSE SCALE ASDIR SUBQ Sterile Water 1 ML ASDIR PRN IM Propofol 100 ML TITRATE IV (CKD) Midazolam HCl 100 ML TITRATE IV (CKD) Epinephrine 8 MG TITRATE IV (CKD) Sodium Chloride 242 ML Norepinephrine Bitartrate 16 MG TITRATE IV Sodium Chloride 234 ML Perflutren Lipid Microsphere DIRECTED ONCE PRN IV (DC) Sodium Chloride DIRECTED ONCE PRN IV (DC) Sodium Chloride 5 ML ONCE PRN IV (DC) Fentanyl Citrate 50 ML TITRATE IV (CKD) Famotidine 20 MG DAILY PO Heparin Sodium (Porcine) 5,000 UNIT Q12HR SUBQ Esmolol HCl 250 ML TITRATE IV (CKD) Nutrition asessment: The data set between the solid lines has been im ported from the dietitian's assessment. Any exceptions have been noted under Provider comments. BMI Calculated: 33.5 Nutrition related diagnosis: Obese Nutrition diagnosis details: BMI 30-39.9 Nutrition problem: Inadequate oral intake Nutrition etiology: RESPIRATORY STATUS Nutrition signs and symptoms: PT SEDATED ON MECH ANICAL VENT,, NPO, NEED FOR ENTERAL NUTRITIO, N Nutrition prescription: -RECOMMEND DECREASE JEVI TY 1.5 TO 20 ML/HR (PROVIDES 720 KCAL, 27 GM PRO, 387 ML FREE WATER, AND 480 ML TOTAL VOLUME) PT RECEIVING ADDITIONAL 1162 KCAL FROM PROPOFOL @ 44 ML/HR RE COMMEND 24 GM HEALTHYSHOT X5/ DAY. FWF 55 ML/HR WITH NO IV F'S. FWF 30 ML Q4H WITH IVF'S. -IF ABLE TO TOLERATE OFF PROPOFOL, RECOMMEND STAY AT GOAL RATE 50 ML/HR W/ HEALTHY SHOT [address] TO F/U PER FNS PROTOCOL. Dietitian name: Ester Cabrera RD LD Assessment completed: 06/29/20 Provider comments on imported dietitian assessme nt: Physical Exam General appearance: obese, responsiveness (unres ponsive) Head/Eyes: atraumatic, normocephalic ENT: moist mucosal membranes Neck: non-tender, supple/no meningismus, no brui t / NL carotids, no masses or swelling Cardiovascular: irregular rate and rhythm, murmu r Respiratory: decreased breath sounds, intubated/ mech vent Abdomen: non-tender, normal bowel sounds, soft Neuro/RADIOTELEGRAPHIST: Sedated Results Findings/Data: Laboratory Tests 06/30 37 Blood Gas Puncture Site R Radial ABG pH (7.35 - 7.45 pH units) 7.46 H ABG pCO2 (35 - 48 mmHg) 34.9 L ABG pO2 (83 - 108 mmHg) 131.6 H ABG PO2/FiO2 Ratio (mm/Hg) 438.66 ABG HCO3 (21 - 28 mmol/L) 24.7 ABG Total CO2 (22 - 29 mmol/L) 24.5 ABG O2 Sat Calc/Denise (94 - 98 %) 99.2 H ABG Base Excess (-2 - 3 mmol/L) 1.1 Emmanuel Test N/A Sodium (138 - 146 mmol/L) 143 Potassium (3.5 - 4.5 mmol/L) 3.8 Ionized Calcium (1.15 - 1.33 MMOL/L) 1.15 Respiration Rate (12 - 20 /MIN) 12 O2 Delivery Device Adult Vent Vent Mode SIMV FiO2 (%) 30 Pressure Support (cmH2O) 10 Instrument (Specimen Descript) Arterial Laboratory Tests 06/30 06/30 06/30 1738 0329 0038 Chemistry Sodium (137 - 145 mmol/L) 141 Potassium (3.4 - 5.0 mmol/L) 3.8 Chloride (98 - 107 mmol/L) 106 Carbon Dioxide (22 - 30 mmol/L) 28 BUN (9 - 20 mg/dL) 31 H Creatinine (0.7 - 1.3 mg/dL) 1.2 Glomerular Filtr Rate (>60) 90 Glucose (74 - 106 mg/dL) 88 POC Glucose (74 - 106 MG/DL) 88 95 Calcium (8.4 - 10.2 mg/dL) 8.3 L Laboratory Tests 06/30 328 Hematology WBC (5.0 - 12.0 x10 3/uL) 5.8 RBC (4.70 - 6.10 x10 6/uL) 3.24 L Hgb (14.0 - 18.0 g/dL) 9.3 L Hct (37.0 - 49.0 %) 30.1 L MCV (80 - 94 fL) 93 MCH (27 - 31 pg) 28.7 MCHC (33 - 37 g/dL) 30.9 L RDW (11.5 - 15.5 %) 16.5 H Plt Count (130 - 400 x10 3/uL) 241 MPV (9.4 - 16.4 fL) 11.1 Neut % (Auto) (43 - 65 %) 78.2 H Lymph % (Auto) (20.5 - 45.5 %) 9.8 L Citrus % (Auto) (5.5 - 11.7 %) 9.1 Eos % (Auto) (0.9 - 2.9 %) 1.9 Baso % (Auto) (0.2 - 1.0 %) 0.3 Neut # (Auto) (2.2 - 4.8 x10 3/uL) 4.53 Lymph # (Auto) (1.3 - 2.9 x10 3/uL) 0.57 L Citrus # (Auto) (0.3 - 0.8 x10 3/uL) 0.53 Eos # (Auto) (0.0 - 0.2 x10 3/uL) 0.11 Baso # (Auto) (0.0 - 0.1 x10 3/uL) 0.02 Immature Gran % (0.0 - 2.0 %) 0.7 Nucleated RBC % (0 - 1.0 %) 0.0 Laboratory Tests 06/30 1739 Serology SARS-CoV-2 Ag (Rapid) (Negative) NEGATIVE Diagnosis, Assessment Plan Free Text A P: Assessment 1. Lethargy and AMS- may be due to metabolic encephalopathy and/or hypertensive emergency -On admission, BP was in 226/162 -Patient had PEA on 06/21/2020 -CT brain on 06/21 showed no acute intracranial hemorrhage, with only mild chronic microvascular ischem ic injuries. Also, there are faint calcifications in the bilateral basal ganglia. -CT 06/29/2020 showed scattered ventricu lar and subcortical densities that are new and greater than expected for age. -EEG ws abnormal in wakefulness and drowsiness, suggestive of encephalopathy. -As strokes are in different blood supply region s, Echo ordered. -Monitor for paroxysmal atrial fib -Bubble study pending 2.Hypertensive encephalopathy: -On admission, BP was in 226/162 -BP in 120s-130s/60s-70s whi le on multiple blood pressure medications including labetalol, clonidine, isosorbide mononitrate, hy dralazine, amlodipine, nicardipine. -Monitor blood pressure 3. acute resp. failure etc. Plan -Continue with current care -D/w nurse -Will continue to follow -consider repeat EEG if needed -Spoke to patient's aunt Adina Colin yesterday 06/29/2019 to inform her MRI results, neuro status and plan to perform bubble study Jessica Parson 06/30/20 2329: Attestations Teaching Physician Attestation F/U visit w/ resident: I saw the patient with the resident and agree with the resident's findings and plan. discussed with nurse Electronically Signed by Tai Haynes MD R1 on 0 06/30/20 at 1928 Electronically Signed by Jessica Parson MD on at 2329 Addendum 1: 06/30/20 2350 by Jessica Parson MD Electronically Signed by Jessica Parson MD on at 2350 Addendum 2: 06/30/20 2350 by Jessica Parson MD Electronically Signed by Jessica Parson MD on at 2350 RPT #:[id number] END OF REPORT 2020-06-30 17:52:00-00:00 [facility] Vascular Surgery Progress Note REPORT#:[id number] REPORT STATUS: Signed DATE:06/30/20 TIME: 1751 PATIENT: JORGE GOINS UNIT #: [id number] ROOM/BED: [address] : [birth year] AGE: 34 SEX: M ATTEND: Luis M Olmedo MD ADM AUTHOR: Kleber Newby MD * ALL edits or amendments must be made on the el [employer]/computer document * Subjective Chief Complaint: Intubated and sedated at time of examination HPI Patient remains intubated an d sedated, after discussion with the nurse even with sedation held the patient do es not appear to be making purposeful movements. At this time the patient remains critically ill. Re view of systems not obtained given the patient is intubated sedated. Objective General VS/I O Last Documented: Result Date Time Pulse Ox 100 06/30 173 Pulse 69 06/30 1730 Resp 16 06/30 1730 FiO2 30 06/30 1723 B/P 130/62 06/30 1715 B/P Mean 89 06/30 1715 Temp 99.0 06/30 1600 O2 Delivery Ventilator 06/30 0921 O2 Flow Rate 0 06/26 0936 24 hour I O ending at 0700: 06/30 0700 06/29 1900 Intake Total 3336.00 3015.00 Output Total 6050 4800 Balance -2714.00 -1785.00 Intake, IV 2966.00 2357.00 Intake, Oral 0 Intake, Tube 120 658 Feeding Intake, Tube 250 Irrigant Output, Stool 50 100 Output, Urine 6000 4700 Patient 108.8 kg Weight Weight Bed scale Measurement Method PATIENT WEIGHT: Weight (lb): 239 Weight (oz): 13.81 Weight (kg): 108.800 General appearance: sedated HEENT: anicteric Neck: supple Cardiovascular: regular rate, hypertensive despi te multiple blood pressure lowering agents Respiratory: symmetric expansion Abdomen: soft, non-tender Genitourinary: zuñiga Extremities: palpable radial and dorsalis pedis pulses bilaterally Neuro/RADIOTELEGRAPHIST: intubated and sedated Skin: no flank or back ecchymosis Psychiatry: unable to evaluate Current Medications Medications: Active Meds + DC'd Last 24 Hrs Perflutren Lipid Microsphere DIRECTED ONCE PRN IV Sodium Chloride DIRECTED ONCE PRN IV Sodium Chloride 5 ML ONCE PRN IV Potassium Bicarbonate/Citric Acid 20 MEQ ASDIR P O (CKD) Potassium Chloride 100 ML ASDIR PRN IV Hydralazine HCl 100 MG Q8HR PO Labetalol HCl 400 MG Q8HR PO Furosemide 100 MG Q20H IV Sodium Chloride 90 ML Isosorbide Mononitrate 30 MG BID PO Magnesium 100 ML ASDIR PRN IV Magnesium Sulfate 50 ML ASDIR PRN IV Magnesium Sulfate 100 ML ASDIR PRN IV Clonidine HCl 0.2 MG Q7D TRANSDERM (CKD) Amlodipine Besylate 5 MG Q12HR PO Aspirin 81 MG DAILY FEED-TUBE (DA) Atorvastatin Calcium 40 MG DAILY FEED-TUBE Albuterol/Ipratropium 3 ML RTQ6H INH Perflutren Lipid Microsphere DIRECTED ONCE PRN IV (DC) Sodium Chloride DIRECTED ONCE PRN IV (DC) Sodium Chloride 5 ML ONCE PRN IV (DC) Nicardipine HCl 250 ML TITRATE IV Dexmedetomidine HCl 400 MCG TITRATE IV Sodium Chloride 96 ML Dextrose/Water 25 ML ASDIR PRN IV Glucagon 1 MG ASDIR PRN IM Insulin Human Lispro LOW DOSE SCALE ASDIR SUBQ Sterile Water 1 ML ASDIR PRN IM Propofol 100 ML TITRATE IV (CKD) Midazolam HCl 100 ML TITRATE IV (CKD) Epinephrine 8 MG TITRATE IV (CKD) Sodium Chloride 242 ML Norepinephrine Bitartrate 16 MG TITRATE IV Sodium Chloride 234 ML Perflutren Lipid Microsphere DIRECTED ONCE PRN IV (DC) Sodium Chloride DIRECTED ONCE PRN IV (DC) Sodium Chloride 5 ML ONCE PRN IV (DC) Fentanyl Citrate 50 ML TITRATE IV (CKD) Famotidine 20 MG DAILY PO Heparin Sodium (Porcine) 5,000 UNIT Q12HR SUBQ Esmolol HCl 250 ML TITRATE IV (CKD) Diagnosis, Assessment Plan Free Text A P: 34 year old male with complicated type B dissection in need of extension TEVAR when stable Keep BP less than 120mmhg, ok to allow hypertens ion to facilitate exubtation Extubate when feasible Will need further TEVAR when stable Vascular surgery will continue to follow closely . Electronically Signed by Kleber Newby MD on 11/13 at 1755 RPT #:[id number] END OF REPORT 2020-06-30 08:23:00-00:00 [facility] Nephrology Progress Note REPORT#:[id number] REPORT STATUS: Signed DATE:06/30/20 TIME: 822 PATIENT: JORGE GOINS UNIT #: [id number] ROOM/BED: [address] : [birth year] AGE: 34 SEX: M ATTEND: Luis M Olmedo MD ADM AUTHOR: Giancarlo Izaguirre MD R2 * ALL edits or amendments must be made on the el [employer]/computer document * Subjective Comments: no acute events Review of Systems Unable to obtain due to: ams Objective General VS/I O: Vital Signs: Date Time Temp Pulse Resp B/P B/P Pulse O2 O2 F low FiO2 Mean Ox Delivery Rate 01/05 1249 70 13 98 01/05 1245 68 8 140/66 96 100 01/05 1230 68 9 136/66 94 100 01/05 1215 69 10 140/67 96 100 01/05 1200 99.4 01/05 1200 69 12 139/64 94 100 01/05 1153 69 11 142/66 95 100 01/05 1151 69 12 164/74 108 100 01/05 1148 70 14 162/79 111 100 01/05 1145 70 12 159/77 110 97 01/05 1130 68 9 156/74 107 100 01/05 1115 68 14 148/71 99 100 01/05 1100 67 7 150/70 100 100 01/05 1045 67 10 148/70 101 99 01/05 1030 67 14 143/67 97 99 01/05 1015 67 19 140/63 91 99 01/05 1004 67 12 100 01/05 1000 67 19 137/65 93 99 01/05 0945 67 7 141/66 95 100 01/05 0930 67 15 140/66 95 100 01/05 0921 97 Ventilator 30 01/05 0921 67 97 30 01/05 0915 66 11 141/67 96 100 01/05 0900 66 11 139/67 95 100 01/05 0845 66 6 141/66 95 100 01/05 0830 66 10 139/65 94 100 01/05 0815 66 10 139/66 95 100 01/05 0800 Ventilator 01/05 0800 98.8 30 01/05 0800 66 11 136/63 92 100 01/05 0745 66 9 138/65 93 100 01/05 0730 65 7 136/64 92 100 01/05 0715 65 8 134/62 90 100 01/05 0700 65 9 131/65 89 100 01/05 0645 65 10 130/61 88 100 01/05 0630 65 10 129/60 86 100 01/05 0615 65 11 129/63 88 100 01/05 0600 65 7 130/63 89 100 01/05 0545 64 15 133/65 92 100 01/05 0530 66 14 138/67 94 99 01/05 0515 64 17 142/68 97 99 01/05 0500 30 01/05 0500 65 19 138/65 93 99 01/05 0445 64 18 141/66 96 99 01/05 0430 64 16 141/68 96 99 01/05 0415 64 19 140/67 96 99 01/05 0400 98.1 01/05 0400 64 16 137/66 94 99 01/05 0345 66 20 134/64 91 100 01/05 0345 66 100 30 01/05 0330 66 17 136/65 92 99 01/05 0315 65 18 139/65 93 99 01/05 0300 66 18 135/61 90 99 01/05 0245 66 20 138/63 91 99 01/05 0230 66 18 137/62 89 99 01/05 0221 66 16 136/60 86 98 01/05 0200 66 11 151/66 97 100 01/05 0145 67 10 153/70 100 100 01/05 0130 68 18 143/63 92 100 01/05 0124 68 100 30 01/05 0115 67 20 145/68 95 100 01/05 0100 67 13 142/64 92 100 01/05 0045 67 15 142/64 92 100 01/05 0030 68 18 136/62 88 99 01/05 0015 69 21 141/63 90 100 01/05 0000 98.4 01/05 0000 69 21 137/60 87 100 01/04 2345 70 16 140/62 89 100 01/04 2330 70 22 139/61 88 100 01/04 2315 70 17 137/60 86 100 01/04 2300 71 22 142/62 89 100 01/04 2245 71 17 141/61 88 100 01/04 2230 72 21 143/62 89 100 01/04 2215 72 25 143/62 89 100 01/04 2200 72 25 141/61 88 100 01/04 2145 72 27 147/60 90 100 01/04 2130 73 26 153/67 96 100 01/04 2115 73 27 149/65 94 100 01/04 2101 100 Ventilator 39 01/04 2101 74 100 30 01/04 2100 73 18 146/64 92 99 01/04 5 73 12 146/63 91 98 01/04 2029 73 16 146/64 92 98 01/04 2014 72 10 145/63 90 97 01/04 1999 99.1 /1999 Ventilator 30 /1999 72 13 144/62 89 97 01/04 1945 73 9 146/64 92 98 06/29 1930 72 7 148/63 91 98 06/29 1915 72 8 141/62 90 98 06/29 1900 73 13 139/66 92 99 06/29 1827 75 25 99 06/29 1815 75 18 147/66 95 95 06/29 1800 77 29 145/64 92 100 06/29 1745 74 10 145/60 92 100 06/29 1743 75 14 100 06/29 1730 74 12 151/68 98 100 06/29 1715 74 13 146/68 98 100 06/29 1701 75 9 134/65 93 100 06/29 1700 74 20 100 06/29 1645 75 27 130/57 80 100 06/29 1630 74 16 140/62 89 100 24 hour I O ending at 0700: 06/30 0700 06/29 1900 Intake Total 3336.00 3015.00 Output Total 6050 4800 Balance -2714.00 -1785.00 Intake, IV 2966.00 2357.00 Intake, Oral 0 Intake, Tube 120 658 Feeding Intake, Tube 250 Irrigant Output, Stool 50 100 Output, Urine 6000 4700 Patient 108.8 kg Weight Weight Bed scale Measurement Method Medications Active Meds + DC'd Last 24 Hrs Perflutren Lipid Microsphere DIRECTED ONCE PRN IV Sodium Chloride DIRECTED ONCE PRN IV Sodium Chloride 5 ML ONCE PRN IV Potassium Bicarbonate/Citric Acid 20 MEQ ASDIR P O (CKD) Potassium Chloride 100 ML ASDIR PRN IV Hydralazine HCl 100 MG Q8HR PO Labetalol HCl 400 MG Q8HR PO Furosemide 100 MG Q20H IV Sodium Chloride 90 ML Isosorbide Mononitrate 30 MG BID PO Magnesium 100 ML ASDIR PRN IV Magnesium Sulfate 50 ML ASDIR PRN IV Magnesium Sulfate 100 ML ASDIR PRN IV Clonidine HCl 0.2 MG Q7D TRANSDERM (CKD) Amlodipine Besylate 5 MG Q12HR PO Aspirin 81 MG DAILY FEED-TUBE Atorvastatin Calcium 40 MG DAILY FEED-TUBE Albuterol/Ipratropium 3 ML RTQ6H INH Perflutren Lipid Microsphere DIRECTED ONCE PRN IV (DC) Sodium Chloride DIRECTED ONCE PRN IV (DC) Sodium Chloride 5 ML ONCE PRN IV (DC) Nicardipine HCl 250 ML TITRATE IV Dexmedetomidine HCl 400 MCG TITRATE IV Sodium Chloride 96 ML Dextrose/Water 25 ML ASDIR PRN IV Glucagon 1 MG ASDIR PRN IM Insulin Human Lispro LOW DOSE SCALE ASDIR SUBQ Sterile Water 1 ML ASDIR PRN IM Propofol 100 ML TITRATE IV (CKD) Midazolam HCl 100 ML TITRATE IV (CKD) Epinephrine 8 MG TITRATE IV (CKD) Sodium Chloride 242 ML Norepinephrine Bitartrate 16 MG TITRATE IV Sodium Chloride 234 ML Perflutren Lipid Microsphere DIRECTED ONCE PRN IV (DC) Sodium Chloride DIRECTED ONCE PRN IV (DC) Sodium Chloride 5 ML ONCE PRN IV (DC) Fentanyl Citrate 50 ML TITRATE IV (CKD) Famotidine 20 MG DAILY PO Heparin Sodium (Porcine) 5,000 UNIT Q12HR SUBQ Esmolol HCl 250 ML TITRATE IV (CKD) Physical Exam General appearance: altered mental status, obese , respiratory support Head/eyes: normal conjunctiva/sclera Neck: no JVD Respiratory: symmetric expansion Genitourinary: zuñiga, urine Musculoskeletal: normal inspection Neuro/RADIOTELEGRAPHIST: SEDATED Hemodialysis access: Type: vascath Psychiatry: unable to evaluate Results Findings/Data: Laboratory Tests 06/30 37 Blood Gas Puncture Site R Radial ABG pH (7.35 - 7.45 pH units) 7.46 H ABG pCO2 (35 - 48 mmHg) 34.9 L ABG pO2 (83 - 108 mmHg) 131.6 H ABG PO2/FiO2 Ratio (mm/Hg) 438.66 ABG HCO3 (21 - 28 mmol/L) 24.7 ABG Total CO2 (22 - 29 mmol/L) 24.5 ABG O2 Sat Calc/Denise (94 - 98 %) 99.2 H ABG Base Excess (-2 - 3 mmol/L) 1.1 Emmanuel Test N/A Sodium (138 - 146 mmol/L) 143 Potassium (3.5 - 4.5 mmol/L) 3.8 Ionized Calcium (1.15 - 1.33 MMOL/L) 1.15 Respiration Rate (12 - 20 /MIN) 12 O2 Delivery Device Adult Vent Vent Mode SIMV FiO2 (%) 30 Pressure Support (cmH2O) 10 Instrument (Specimen Descript) Arterial Laboratory Tests 06/30 06/30 06/29 0329 0038 1737 Chemistry Sodium (137 - 145 mmol/L) 141 Potassium (3.4 - 5.0 mmol/L) 3.8 Chloride (98 - 107 mmol/L) 106 Carbon Dioxide (22 - 30 mmol/L) 28 BUN (9 - 20 mg/dL) 31 H Creatinine (0.7 - 1.3 mg/dL) 1.2 Glomerular Filtr Rate (>60) 90 Glucose (74 - 106 mg/dL) 88 POC Glucose (74 - 100 mg/dL) 95 104 Calcium (8.4 - 10.2 mg/dL) 8.3 L Laboratory Tests 06/30 0329 Hematology WBC (5.0 - 12.0 x10 3/uL) 5.8 RBC (4.70 - 6.10 x10 6/uL) 3.24 L Hgb (14.0 - 18.0 g/dL) 9.3 L Hct (37.0 - 49.0 %) 30.1 L MCV (80 - 94 fL) 93 MCH (27 - 31 pg) 28.7 MCHC (33 - 37 g/dL) 30.9 L RDW (11.5 - 15.5 %) 16.5 H Plt Count (130 - 400 x10 3/uL) 241 MPV (9.4 - 16.4 fL) 11.1 Neut % (Auto) (43 - 65 %) 78.2 H Lymph % (Auto) (20.5 - 45.5 %) 9.8 L Citrus % (Auto) (5.5 - 11.7 %) 9.1 Eos % (Auto) (0.9 - 2.9 %) 1.9 Baso % (Auto) (0.2 - 1.0 %) 0.3 Neut # (Auto) (2.2 - 4.8 x10 3/uL) 4.53 Lymph # (Auto) (1.3 - 2.9 x10 3/uL) 0.57 L Citrus # (Auto) (0.3 - 0.8 x10 3/uL) 0.53 Eos # (Auto) (0.0 - 0.2 x10 3/uL) 0.11 Baso # (Auto) (0.0 - 0.1 x10 3/uL) 0.02 Immature Gran % (0.0 - 2.0 %) 0.7 Nucleated RBC % (0 - 1.0 %) 0.0 Diagnosis, Assessment Plan Free Text A P: JENNIFER hypotension AAA lactic acidosis severe metabolic acidosis Cr stable/improved lasix gtt per cards Acidosis resolved plan noted for trach/peg 10.7L UOP noted--believe to be error, however UO P good will monitor Electronically Signed by Giancarlo Izaguirre MD R2 on at 1622 RPT #:[id number] END OF REPORT 2020-06-30 08:23:00-00:[address] [facility] ([facility]) Nephrology Progress Note REPORT#:[id number] REPORT STATUS: Signed DATE:06/30/20 TIME: 822 PATIENT: JORGE GOINS UNIT #: [id number] ROOM/BED: [address] : [birth year] AGE: 34 SEX: M ATTEND: Luis M Olmedo MD ADM AUTHOR: Giancarlo Izaguirre MD R2 * ALL edits or amendments must be made on the [employer]/computer document * Giancarlo Izaguirre 06/30/20 0823: Subjective Comments: no acute events Review of Systems Unable to obtain due to: ams Objective General VS/I O: Vital Signs: Date Time Temp Pulse Resp B/P B/P Pulse O2 O2 F low FiO2 Mean Ox Delivery Rate 06/30 1249 70 13 98 01/05 1245 68 8 140/66 96 100 01/05 1230 68 9 136/66 94 100 01/05 1215 69 10 140/67 96 100 01/05 1200 99.4 01/05 1200 69 12 139/64 94 100 01/05 1153 69 11 142/66 95 100 01/05 1151 69 12 164/74 108 100 01/05 1148 70 14 162/79 111 100 01/05 1145 70 12 159/77 110 97 01/05 1130 68 9 156/74 107 100 01/05 1115 68 14 148/71 99 100 01/05 1100 67 7 150/70 100 100 01/05 1045 67 10 148/70 101 99 01/05 1030 67 14 143/67 97 99 01/05 1015 67 19 140/63 91 99 01/05 1004 67 12 100 01/05 1000 67 19 137/65 93 99 01/05 0945 67 7 141/66 95 100 01/05 0930 67 15 140/66 95 100 01/05 0921 97 Ventilator 30 01/05 0921 67 97 30 01/05 0915 66 11 141/67 96 100 01/05 0900 66 11 139/67 95 100 01/05 0845 66 6 141/66 95 100 01/05 0830 66 10 139/65 94 100 01/05 0815 66 10 139/66 95 100 01/05 0800 Ventilator 01/05 0800 98.8 30 01/05 0800 66 11 136/63 92 100 01/05 0745 66 9 138/65 93 100 01/05 0730 65 7 136/64 92 100 01/05 0715 65 8 134/62 90 100 01/05 0700 65 9 131/65 89 100 01/05 0645 65 10 130/61 88 100 01/05 0630 65 10 129/60 86 100 01/05 0615 65 11 129/63 88 100 01/05 0600 65 7 130/63 89 100 01/05 0545 64 15 133/65 92 100 01/05 0530 66 14 138/67 94 99 01/05 0515 64 17 142/68 97 99 01/05 0500 30 01/05 0500 65 19 138/65 93 99 01/05 0445 64 18 141/66 96 99 01/05 0430 64 16 141/68 96 99 01/05 0415 64 19 140/67 96 99 01/05 0400 98.1 01/05 0400 64 16 137/66 94 99 01/05 0345 66 20 134/64 91 100 01/05 0345 66 100 30 01/05 0330 66 17 136/65 92 99 01/05 0315 65 18 139/65 93 99 01/05 0300 66 18 135/61 90 99 01/05 0245 66 20 138/63 91 99 01/05 0230 66 18 137/62 89 99 01/05 0221 66 16 136/60 86 98 01/05 0200 66 11 151/66 97 100 01/05 0145 67 10 153/70 100 100 01/05 0130 68 18 143/63 92 100 01/05 0124 68 100 30 01/05 0115 67 20 145/68 95 100 01/05 0100 67 13 142/64 92 100 01/05 0045 67 15 142/64 92 100 01/05 0030 68 18 136/62 88 99 01/05 0015 69 21 141/63 90 100 01/05 0000 98.4 01/05 0000 69 21 137/60 87 100 01/04 2345 70 16 140/62 89 100 01/04 2330 70 22 139/61 88 100 01/04 2315 70 17 137/60 86 100 01/04 2300 71 22 142/62 89 100 01/04 2245 71 17 141/61 88 100 01/04 2230 72 21 143/62 89 100 01/04 2215 72 25 143/62 89 100 01/04 2200 72 25 141/61 88 100 01/04 2145 72 27 147/60 90 100 01/04 2130 73 26 153/67 96 100 01/04 2115 73 27 149/65 94 100 01/04 2101 100 Ventilator 39 01/04 2101 74 100 30 01/ 2100 73 18 146/64 92 99 01/04 2045 73 12 146/63 91 98 01/2029 73 16 146/64 92 98 06/29 2014 72 10 145/63 90 97 06/29 1999 99.1 06/29 1999 Ventilator 30 06/29 1999 72 13 144/62 89 97 01/04 1945 73 9 146/64 92 98 /04 1930 72 7 148/63 91 98 01/04 1915 72 8 141/62 90 98 01/04 1900 73 13 139/66 92 99 01/04 1827 75 25 99 01/04 1815 75 18 147/66 95 95 01/04 1800 77 29 145/64 92 100 01/04 1745 74 10 145/60 92 100 01/04 1743 75 14 100 01/04 1730 74 12 151/68 98 100 01/04 1715 74 13 146/68 98 100 01/04 1701 75 9 134/65 93 100 01/04 1700 74 20 100 01/04 1645 75 27 130/57 80 100 01/04 1630 74 16 140/62 89 100 24 hour I O ending at 0700: 05 0700 /04 1900 Intake Total 3336.00 3015.00 Output Total 6050 4800 Balance -2714.00 -1785.00 Intake, IV 2966.00 2357.00 Intake, Oral 0 Intake, Tube 120 658 Feeding Intake, Tube 250 Irrigant Output, Stool 50 100 Output, Urine 6000 4700 Patient 108.8 kg Weight Weight Bed scale Measurement Method Medications Active Meds + DC'd Last 24 Hrs Perflutren Lipid Microsphere DIRECTED ONCE PRN IV Sodium Chloride DIRECTED ONCE PRN IV Sodium Chloride 5 ML ONCE PRN IV Potassium Bicarbonate/Citric Acid 20 MEQ ASDIR PO (CKD) Potassium Chloride 100 ML ASDIR PRN IV Hydralazine HCl 100 MG Q8HR PO Labetalol HCl 400 MG Q8HR PO Furosemide 100 MG Q20H IV Sodium Chloride 90 ML Isosorbide Mononitrate 30 MG BID PO Magnesium 100 ML ASDIR PRN IV Magnesium Sulfate 50 ML ASDIR PRN IV Magnesium Sulfate 100 ML ASDIR PRN IV Clonidine HCl 0.2 MG Q7D TRANSDERM (CKD) Amlodipine Besylate 5 MG Q12HR PO Aspirin 81 MG DAILY FEED-TUBE Atorvastatin Calcium 40 MG DAILY FEED-TUBE Albuterol/Ipratropium 3 ML RTQ6H INH Perflutren Lipid Microsphere DIRECTED ONCE PRN IV (DC) Sodium Chloride DIRECTED ONCE PRN IV (DC) Sodium Chloride 5 ML ONCE PRN IV (DC) Nicardipine HCl 250 ML TITRATE IV Dexmedetomidine HCl 400 MCG TITRATE IV Sodium Chloride 96 ML Dextrose/Water 25 ML ASDIR PRN IV Glucagon 1 MG ASDIR PRN IM Insulin Human Lispro LOW DOSE SCALE ASDIR SUBQ Sterile Water 1 ML ASDIR PRN IM Propofol 100 ML TITRATE IV (CKD) Midazolam HCl 100 ML TITRATE IV (CKD) Epinephrine 8 MG TITRATE IV (CKD) Sodium Chloride 242 ML Norepinephrine Bitartrate 16 MG TITRATE IV Sodium Chloride 234 ML Perflutren Lipid Microsphere DIRECTED ONCE PRN IV (DC) Sodium Chloride DIRECTED ONCE PRN IV (DC) Sodium Chloride 5 ML ONCE PRN IV (DC) Fentanyl Citrate 50 ML TITRATE IV (CKD) Famotidine 20 MG DAILY PO Heparin Sodium (Porcine) 5,000 UNIT Q12HR SUBQ Esmolol HCl 250 ML TITRATE IV (CKD) Physical Exam General appearance: altered mental status, obese , respiratory support Head/eyes: normal conjunctiva/sclera Neck: no JVD Respiratory: symmetric expansion Genitourinary: zuñiga, urine Musculoskeletal: normal inspection Neuro/RADIOTELEGRAPHIST: SEDATED Hemodialysis access: Type: vascath Psychiatry: unable to evaluate Results Findings/Data: Laboratory Tests 06/30 37 Blood Gas Puncture Site R Radial ABG pH (7.35 - 7.45 pH units) 7.46 H ABG pCO2 (35 - 48 mmHg) 34.9 L ABG pO2 (83 - 108 mmHg) 131.6 H ABG PO2/FiO2 Ratio (mm/Hg) 438.66 ABG HCO3 (21 - 28 mmol/L) 24.7 ABG Total CO2 (22 - 29 mmol/L) 24.5 ABG O2 Sat Calc/Denise (94 - 98 %) 99.2 H ABG Base Excess (-2 - 3 mmol/L) 1.1 Emmanuel Test N/A Sodium (138 - 146 mmol/L) 143 Potassium (3.5 - 4.5 mmol/L) 3.8 Ionized Calcium (1.15 - 1.33 MMOL/L) 1.15 Respiration Rate (12 - 20 /MIN) 12 O2 Delivery Device Adult Vent Vent Mode SIMV FiO2 (%) 30 Pressure Support (cmH2O) 10 Instrument (Specimen Descript) Arterial Laboratory Tests 06/309 0038 1737 Chemistry Sodium (137 - 145 mmol/L) 141 Potassium (3.4 - 5.0 mmol/L) 3.8 Chloride (98 - 107 mmol/L) 106 Carbon Dioxide (22 - 30 mmol/L) 28 BUN (9 - 20 mg/dL) 31 H Creatinine (0.7 - 1.3 mg/dL) 1.2 Glomerular Filtr Rate (>60) 90 Glucose (74 - 106 mg/dL) 88 POC Glucose (74 - 100 mg/dL) 95 104 Calcium (8.4 - 10.2 mg/dL) 8.3 L Laboratory Tests 06/30 328 Hematology WBC (5.0 - 12.0 x10 3/uL) 5.8 RBC (4.70 - 6.10 x10 6/uL) 3.24 L Hgb (14.0 - 18.0 g/dL) 9.3 L Hct (37.0 - 49.0 %) 30.1 L MCV (80 - 94 fL) 93 MCH (27 - 31 pg) 28.7 MCHC (33 - 37 g/dL) 30.9 L RDW (11.5 - 15.5 %) 16.5 H Plt Count (130 - 400 x10 3/uL) 241 MPV (9.4 - 16.4 fL) 11.1 Neut % (Auto) (43 - 65 %) 78.2 H Lymph % (Auto) (20.5 - 45.5 %) 9.8 L Citrus % (Auto) (5.5 - 11.7 %) 9.1 Eos % (Auto) (0.9 - 2.9 %) 1.9 Baso % (Auto) (0.2 - 1.0 %) 0.3 Neut # (Auto) (2.2 - 4.8 x10 3/uL) 4.53 Lymph # (Auto) (1.3 - 2.9 x10 3/uL) 0.57 L Citrus # (Auto) (0.3 - 0.8 x10 3/uL) 0.53 Eos # (Auto) (0.0 - 0.2 x10 3/uL) 0.11 Baso # (Auto) (0.0 - 0.1 x10 3/uL) 0.02 Immature Gran % (0.0 - 2.0 %) 0.7 Nucleated RBC % (0 - 1.0 %) 0.0 Diagnosis, Assessment Plan Free Text A P: JENNIFER hypotension AAA lactic acidosis severe metabolic acidosis Cr stable/improved lasix gtt per cards Acidosis resolved plan noted for trach/peg 10.7L UOP noted--believe to be error, however UO P good will monitor Jojo York 07/03/20 1657: Attestations Attestation needed: teaching physician Physician Attestation Agree w/findings plan: Agree with the findings and plan as documented Electronically Signed by Giancarlo Izaguirre MD R2 on at 1622 at 1657 RPT #:[id number] END OF REPORT 2020-06-29 21:10:00-00:[address] [facility] ([facility]) Critical Care Progress Note REPORT#:[id number] REPORT STATUS: Signed DATE:06/29/20 TIME: 2109 PATIENT: JORGE GOINS UNIT #: [id number] ROOM/BED: [address] : [birth year] AGE: 34 SEX: M ATTEND: Luis M Olmedo MD ADM AUTHOR: Edy Olmedo MD * ALL edits or amendments must be made on the [employer]/computer document * Subjective Chief Complaint: encephlaopthic still uncontrolled bp Objective Physical Exam Head/Eyes: atraumatic, normocephalic Cardiovascular: normal heart sounds, normal S1 S 2, normal rate and rhythm Respiratory/Chest: aerating well, clear to auscu ltation Abdomen: soft, non-tender, normal bowel sounds, no distention Extremities: no edema Neuro/RADIOTELEGRAPHIST: disoriented Diagnosis, Assessment Plan Free text A P: 34 year old male with history of aortic dissecti on s/p EVAR came in for hypertensive urgency A/P: Neuro -intubated -MRI multiple ischemic cva #AMS -MRI multifocal cva -on versed -EEG pending -neuro following Pulm -s/p intubation following cardiac arrest -on FiO2 28% -ABG this AM 7.47/29.3/118.3/21.1 -mental status not optimal for extubation Airway protection is an issue will proceed with trach CV #s/p Cardiac Arrest - PEA hypotensive. ROSC achieved after 9 minutes - likely from cardiogenic shock EF 30-34% - off all pressors - Aortic dissection ruled out from CTA chest , a bdomen and pelvis #hx of EVAR for aortic dissection and h/o endole ak in the past - per vascular surgery -uncontrolled hypertension wean esmolol wean cardene ECHO WMA check with cardiology about need for heart cath #HTN -restart coreg -on cardene -cardio following -monitor #Hypertension norvasc hydralazine wean esmolol wean cardene GI on tube feeding Renal #JENNIFER stable started on lasix drip my cardiology gi ppx: pepcid dvt ppx: heparin Diet: tube feeds condition critical prognosis guarded CC time more than 45 minutes Reviewed chart/images Excludes all procedure time Electronically Signed by Edy Olmedo MD on 05/16 at [facility] RPT #:[id number] END OF REPORT 2020-06-29 21:02:00-00:00 [facility] Cardiology Progress Note REPORT#:[id number] REPORT STATUS: Signed DATE:06/29/20 TIME: 2101 PATIENT: JORGE GOINS UNIT #: [id number] ROOM/BED: [place] [id number] : 86 AGE: 34 SEX: M ATTEND: Luis M Olmedo MD ADM AUTHOR: Giancarlo Phan MD * ALL edits or amendments must be made on the [employer]/computer document * Subjective Free Text Subj Notes Free Text Subj Notes: Patient still intubated. Objective Physical Exam Head/Eyes: atraumatic, normocephalic, PERRL ENT: moist mucosal membranes, normal nose Neck: non-tender, supple/no meningismus Cardiovascular: CV assessment: regular rate and rhythm, no murm ur Respiratory: no distress, coarse breathsounds, m echanically ventialted Abdomen: soft, non-tender Upper extremity: UE assessment: normal capillary refill, normal temperature Lower extremity: LE assessment: normal capillary refill, normal temperature, no edema Musculoskeletal: normal inspection Neuro/RADIOTELEGRAPHIST: intubated and sedated, withdraws to p ainful stimuli Diagnosis, Assessment Plan Free Text DxA P Notes Free Text DxA P Notes: 1. Hypertensive urgency/emergency - presented with severely elevated BP requiring 2 IV infusions, subsequently suffered PEA cardiac arrest - BP very high - - hydralazine increased to 100 - increase labetalol - clonidine patch added - norvasc added - added ismn 30mg xl bid - wean down cardene and esmlol as much as we ca n - goal bp 120-140/60-80 2. Cardiac arrest - PEA in etiology, pt became hypothermic and sub sequently bradycardic 3. Type B aortic dissection s/p EVAR - has residual descending aortic dissect ion extending into iliacs. No evidence of rupture on CTA. Reviewed by vascular surgery - appreciate assitance - needs aggressive BP Control. 4. Acute on chronic systolic heart failure - likely hypertensive heart disease due to long standing elevated BP - warm and well perfused on examination - need low dose lasix to see if this helps, he i s edematous - check BNP - may need lasix drip 5. Shock - resolved - warm and well perfused on examination 6. JENNIFER on CKD stage 3 - likely secondary to fluctuation in BP - nephrology following, appreciate recommendatio ns - monitor UOP 7. Acute hypoxic respiratory failure - wean from ventilator as tolerated - per ICU te am Will follow. Please call if questions. [facility] Cardiology Electronically Signed by Giancarlo Phan MD on 10/14 at 2102 RPT #:[id number] END OF REPORT 2020-06-29 16:16:00-00:00 [facility] Clinical Note REPORT#:[id number] REPORT STATUS: Signed DATE:06/29/20 TIME: 161 PATIENT: JORGE GOINS UNIT #: [id number] ROOM/BED: [address] : [birth year] AGE: 34 SEX: M ATTEND: Yoseph Olmedo MD ADM AUTHOR: Joselyn Calvo BRAZING MACHINE TENDER * ALL edits or amendments must be made on the [employer] document * Clinical Note Note: CV Neuro ICU BRAZING MACHINE TENDER: Discussed pt's clinical stat us with pt's next of kin, aunt (Adina [phone]) . Aunt wants to continue aggressive care includi ng trach/PEG. Dr. Amaya has already been consulted. Will proceed with trach/ PEG. Electronically Signed by Joselyn Calvo BRAZING MACHINE TENDER on 06/29 at 1627 RPT #:[id number] END OF REPORT 2020-06-29 16:16:00-00:00 [facility] Clinical Note REPORT#:[id number] REPORT STATUS: Signed DATE:06/29/20 TIME: 1615 PATIENT: JORGE GOINS UNIT #: [id number] ROOM/BED: [address] : [birth year] AGE: 34 SEX: M ATTEND: Luis M Olmedo MD ADM AUTHOR: Joselyn Calvo NP * ALL edits or amendments must be made on the [employer] document * Clinical Note Note: CV Neuro ICU BRAZING MACHINE TENDER: Discussed pt's clinical stat us with pt's next of kin, aunt (Adina [phone]) . Aunt wants to continue aggressive care includi ng trach/PEG. Dr. Amaya has already been consulted. Will proceed with trach/ PEG. Electronically Signed by Joselyn Calvo BRAZING MACHINE TENDER on 06/29 at 1627 RPT #:[id number] END OF REPORT 2020-06-29 11:37:00-00:[address] [facility] ([facility]) Neurology Progress Note REPORT#:[id number] REPORT STATUS: Signed DATE:06/29/20 TIME: 1137 PATIENT: JORGE GOINS UNIT #: [id number] ROOM/BED: [address] : [birth year] AGE: 34 SEX: M ATTEND: Luis M Olmedo MD ADM AUTHOR: Tai Haynes MD R1 * ALL edits or amendments must be made on the [employer]/computer document * Subjective Chief Complaint: Lethargy and AMS HPI: Patient still sedated and in tubated, no response to pain. Patient dos not appear to be in any acute distress. Review of Systems Unable to obtain due to: Sedated and intubated Objective General VS: Last Documented: Result Date Time Pulse Ox 100 06/29 0939 FiO2 30 06/29 0939 O2 Delivery Ventilator 06/29 938 Pulse 65 06/29 0939 B/P 131/60 06/29 0715 B/P Mean 86 06/29 0715 Resp 25 06/29 0715 Temp 36.8 06/29 0400 O2 Flow Rate 0 06/26 0936 PATIENT WEIGHT: Weight (lb): 247 Weight (oz): 9.27 Weight (kg): 112.300 Medications Current Home Medications ALBUTEROL (PROAIR HFA 90 MCG/ACT 8.5 GM) 2 PUFF INH RTQ6H PRN PRN SOB ASPIRIN EC (ECOTRIN) 81 MG PO DAILY CARVEDILOL (COREG) 25 MG PO BID MEALS ACETAMINOPHEN/CODEINE (TYLENOL WITH CODE INE #4 300/60 MG) 1 TAB PO Q6H PRN PRN PAIN ATORVASTATIN (LIPITOR) 20 MG PO BEDTIME LOSARTAN (COZAAR) 100 MG PO DAILY NIFEdipine CC (ADALAT CC) 90 MG PO Q12HR HYDROCHLOROTHIAZIDE (HYDRODIURIL) 25 MG PO DAILY Active Meds + DC'd Last 24 Hrs Potassium Bicarbonate/Citric Acid 20 MEQ ASDIR P O (CKD) Potassium Chloride 100 ML ASDIR PRN IV Hydralazine HCl 100 MG Q8HR PO Labetalol HCl 400 MG Q8HR PO Furosemide 100 MG Q20H IV Sodium Chloride 90 ML Isosorbide Mononitrate 30 MG BID PO Magnesium 100 ML ASDIR PRN IV Magnesium Sulfate 50 ML ASDIR PRN IV Magnesium Sulfate 100 ML ASDIR PRN IV Clonidine HCl 0.2 MG Q7D TRANSDERM (CKD) Amlodipine Besylate 5 MG Q12HR PO Aspirin 81 MG DAILY FEED-TUBE Atorvastatin Calcium 40 MG DAILY FEED-TUBE Albuterol/Ipratropium 3 ML RTQ6H INH Perflutren Lipid Microsphere DIRECTED ONCE PRN IV Sodium Chloride DIRECTED ONCE PRN IV Sodium Chloride 5 ML ONCE PRN IV Nicardipine HCl 250 ML TITRATE IV Dexmedetomidine HCl 400 MCG TITRATE IV Sodium Chloride 96 ML Dextrose/Water 25 ML ASDIR PRN IV Glucagon 1 MG ASDIR PRN IM Insulin Human Lispro LOW DOSE SCALE ASDIR SUBQ Sterile Water 1 ML ASDIR PRN IM Propofol 100 ML TITRATE IV (CKD) Midazolam HCl 100 ML TITRATE IV (CKD) Epinephrine 8 MG TITRATE IV (CKD) Sodium Chloride 242 ML Norepinephrine Bitartrate 16 MG TITRATE IV Sodium Chloride 234 ML Perflutren Lipid Microsphere DIRECTED ONCE PRN IV Sodium Chloride DIRECTED ONCE PRN IV Sodium Chloride 5 ML ONCE PRN IV Fentanyl Citrate 50 ML TITRATE IV (CKD) Famotidine 20 MG DAILY PO Heparin Sodium (Porcine) 5,000 UNIT Q12HR SUBQ Esmolol HCl 250 ML TITRATE IV (CKD) Nutrition asessment: The data set between the solid lines has been im ported from the dietitian's assessment. Any exceptions have been noted under Provider comments. BMI Calculated: 34.5 Nutrition related diagnosis: Obese Nutrition diagnosis details: BMI 30-39.9 Nutrition problem: Inadequate oral intake Nutrition etiology: RESPIRATORY STATUS Nutrition signs and symptoms: PT SEDATED ON MECH ANICAL VENT,, NPO, NEED FOR ENTERAL NUTRITIO, N Nutrition prescription: -RECOMMEND DECREASE JEVI TY 1.5 TO 30 ML/HR (PROVIDES 1080 KCAL, 45 GM PRO, 547 ML FREE WATER, AND 720 ML TOTAL VOLUME) PT RECEIVING ADDITIONAL 784 KCAL FROM PRO POFOL @ 29.7 ML/HR. RECOMMEND 24 GM HEALTHYSHOT X4/ DAY. FWF 55 ML/HR WITH NO IVF'S. FWF 30 ML Q2H W ITH IVF'S. RD TO F/U PER FNS PROTOCOL. Dietitian name: MAYCO Miller, JONNATHANN, LD Assessment completed: 06/25/20 Provider comments on imported dietitian assessme nt: Physical Exam Head/Eyes: atraumatic, normocephalic ENT: moist mucosal membranes Neck: non-tender, supple/no meningismus, no brui t / NL carotids, no masses or swelling Cardiovascular: irregular rate and rhythm, murmu r Respiratory: decreased breath sounds, intubated/ mech vent Abdomen: non-tender, normal bowel sounds, soft Neuro/RADIOTELEGRAPHIST: Sedated Diagnosis, Assessment Plan Free Text A P: Assessment 1. #Lethargy AMS- Likely 2/2 metabolic encephalo shirley -CT brain on 06/21 showed no acute intracranial hemorrhage, with only mild chronic microvascular ischem ic injuries. Also, there are faint calcifications in the bilateral basal ganglia. -CT 06/29/2020 showed scattered ventricu lar and subcortical densities that are new and greater than expected for age. -EEG ws abnormal in wakefulness and drowsiness, suggestive of encephalopathy. -As strokes are in different blood supply region s, Echo ordered. -Monitor for paroxysmal atrial fib 2. acute resp. failure etc. Plan -Continue with current care -D/w nurse -Will continue to follow closely- consider repea t eeg if needed Electronically Signed by Tai Haynes MD R1 on 0 06/29/20 at 1423 RPT #:[id number] END OF REPORT 2020-06-29 11:37:00-00:[address] [facility] ([facility]) Neurology Progress Note REPORT#:[id number] REPORT STATUS: Signed DATE:06/29/20 TIME: 113 PATIENT: JORGE GOINS UNIT #: [id number] [address] : [birth year] AGE: 34 SEX: M ATTEND: Luis M Olmedo MD ADM AUTHOR: Tai Haynes MD R1 * ALL edits or amendments must be made on the [employer]/computer document * Tai Haynse 06/29/20 1137: Subjective Chief Complaint: Lethargy and AMS HPI: Patient still sedated and in tubated, no response to pain. Patient dos not appear to be in any acute distress. Review of Systems Unable to obtain due to: Sedated and intubated Objective General VS: Last Documented: Result Date Time Pulse Ox 100 06/29 0939 FiO2 30 06/29 0939 O2 Delivery Ventilator 06/29 0839 Pulse 65 06/29 0939 B/P 131/60 06/29 0715 B/P Mean 86 06/29 0715 Resp 25 06/29 0715 Temp 36.8 06/29 0400 O2 Flow Rate 0 06/26 0936 PATIENT WEIGHT: Weight (lb): 247 Weight (oz): 9.27 Weight (kg): 112.300 Medications Current Home Medications ALBUTEROL (PROAIR HFA 90 MCG/ACT 8.5 GM) 2 PUFF INH RTQ6H PRN PRN SOB ASPIRIN EC (ECOTRIN) 81 MG PO DAILY CARVEDILOL (COREG) 25 MG PO BID MEALS ACETAMINOPHEN/CODEINE (TYLENOL WITH CODE INE #4 300/60 MG) 1 TAB PO Q6H PRN PRN PAIN ATORVASTATIN (LIPITOR) 20 MG PO BEDTIME LOSARTAN (COZAAR) 100 MG PO DAILY NIFEdipine CC (ADALAT CC) 90 MG PO Q12HR HYDROCHLOROTHIAZIDE (HYDRODIURIL) 25 MG PO DAILY Active Meds + DC'd Last 24 Hrs Potassium Bicarbonate/Citric Acid 20 MEQ ASDIR P O (CKD) Potassium Chloride 100 ML ASDIR PRN IV Hydralazine HCl 100 MG Q8HR PO Labetalol HCl 400 MG Q8HR PO Furosemide 100 MG Q20H IV Sodium Chloride 90 ML Isosorbide Mononitrate 30 MG BID PO Magnesium 100 ML ASDIR PRN IV Magnesium Sulfate 50 ML ASDIR PRN IV Magnesium Sulfate 100 ML ASDIR PRN IV Clonidine HCl 0.2 MG Q7D TRANSDERM (CKD) Amlodipine Besylate 5 MG Q12HR PO Aspirin 81 MG DAILY FEED-TUBE Atorvastatin Calcium 40 MG DAILY FEED-TUBE Albuterol/Ipratropium 3 ML RTQ6H INH Perflutren Lipid Microsphere DIRECTED ONCE PRN IV Sodium Chloride DIRECTED ONCE PRN IV Sodium Chloride 5 ML ONCE PRN IV Nicardipine HCl 250 ML TITRATE IV Dexmedetomidine HCl 400 MCG TITRATE IV Sodium Chloride 96 ML Dextrose/Water 25 ML ASDIR PRN IV Glucagon 1 MG ASDIR PRN IM Insulin Human Lispro LOW DOSE SCALE ASDIR SUBQ Sterile Water 1 ML ASDIR PRN IM Propofol 100 ML TITRATE IV (CKD) Midazolam HCl 100 ML TITRATE IV (CKD) Epinephrine 8 MG TITRATE IV (CKD) Sodium Chloride 242 ML Norepinephrine Bitartrate 16 MG TITRATE IV Sodium Chloride 234 ML Perflutren Lipid Microsphere DIRECTED ONCE PRN IV Sodium Chloride DIRECTED ONCE PRN IV Sodium Chloride 5 ML ONCE PRN IV Fentanyl Citrate 50 ML TITRATE IV (CKD) Famotidine 20 MG DAILY PO Heparin Sodium (Porcine) 5,000 UNIT Q12HR SUBQ Esmolol HCl 250 ML TITRATE IV (CKD) Nutrition asessment: The data set between the solid lines has been im ported from the dietitian's assessment. Any exceptions have been noted under Provider comments. BMI Calculated: 34.5 Nutrition related diagnosis: Obese Nutrition diagnosis details: BMI 30-39.9 Nutrition problem: Inadequate oral intake Nutrition etiology: RESPIRATORY STATUS Nutrition signs and symptoms: PT SEDATED ON MECH ANICAL VENT,, NPO, NEED FOR ENTERAL NUTRITIO, N Nutrition prescription: -RECOMMEND DECREASE JEVI TY 1.5 TO 30 ML/HR (PROVIDES 1080 KCAL, 45 GM PRO, 547 ML FREE WATER, AND 720 ML TOTAL VOLUME) PT RECEIVING ADDITIONAL 784 KCAL FROM PRO POFOL @ 29.7 ML/HR. RECOMMEND 24 GM HEALTHYSHOT X4/ DAY. FWF 55 ML/HR WITH NO IVF'S. FWF 30 ML Q2H W ITH IVF'S. RD TO F/U PER FNS PROTOCOL. Dietitian name: Brooke Villa, LINDSEYN, RDN, LD Assessment completed: 06/25/20 Provider comments on imported dietitian assessme nt: Physical Exam Head/Eyes: atraumatic, normocephalic ENT: moist mucosal membranes Neck: non-tender, supple/no meningismus, no brui t / NL carotids, no masses or swelling Cardiovascular: irregular rate and rhythm, murmu r Respiratory: decreased breath sounds, intubated/ mech vent Abdomen: non-tender, normal bowel sounds, soft Neuro/RADIOTELEGRAPHIST: Sedated Diagnosis, Assessment Plan Free Text A P: Assessment 1. #Lethargy AMS- Likely 2/2 metabolic encephalo shirley -CT brain on 06/21 showed no acute intracranial hemorrhage, with only mild chronic microvascular ischem ic injuries. Also, there are faint calcifications in the bilateral basal ganglia. -CT 06/29/2020 showed scattered ventricu lar and subcortical densities that are new and greater than expected for age. -EEG ws abnormal in wakefulness and drowsiness, suggestive of encephalopathy. -As strokes are in different blood supply region s, Echo ordered. -Monitor for paroxysmal atrial fib 2. acute resp. failure etc. Plan -Continue with current care -D/w nurse -Will continue to follow closely- consider repea t eeg if needed Jessica Parson 06/30/20 1108: Attestations Teaching Physician Attestation F/U visit w/ resident: I saw the patient with the resident ON 06/29/19 AN D agree with the resident's findings and plan. Discussed with nurse, needs bubble study to eval uate for PFO as well Electronically Signed by Tai Haynes MD R1 on 0 06/29/20 at 1423 Electronically Signed by Jessica Parson MD on at 1109 RPT #:[id number] END OF REPORT 2020-06-29 11:37:00-00:[address] [facility] ([facility] Neurology Progress Note REPORT#:[id number] REPORT STATUS: Signed DATE:06/29/20 TIME: 1137 PATIENT: JORGE GOINS UNIT #: [id number] ROOM[address]BED: [address] : [birth year] AGE: 34 SEX: M ATTEND: Luis M Olmedo MD ADM AUTHOR: Tai Haynes MD R1 * ALL edits or amendments must be made on the [employer]/computer document * See Addendum Tai Haynes 06/29/20 1137: Subjective Chief Complaint: Lethargy and AMS HPI: Patient still sedated and in tubated, no response to pain. Patient dos not appear to be in any acute distress. Review of Systems Unable to obtain due to: Sedated and intubated Objective General VS: Last Documented: Result Date Time Pulse Ox 100 06/29 0939 FiO2 30 06/29 0939 O2 Delivery Ventilator 06/29 09 Pulse 65 06/29 0939 B/P 131/60 06/29 0715 B/P Mean 86 06/29 0715 Resp 25 06/29 0715 Temp 36.8 06/29 0400 O2 Flow Rate 0 06/26 0936 PATIENT WEIGHT: Weight (lb): 247 Weight (oz): 9.27 Weight (kg): 112.300 Medications Current Home Medications ALBUTEROL (PROAIR HFA 90 MCG/ACT 8.5 GM) 2 PUFF INH RTQ6H PRN PRN SOB ASPIRIN EC (ECOTRIN) 81 MG PO DAILY CARVEDILOL (COREG) 25 MG PO BID MEALS ACETAMINOPHEN/CODEINE (TYLENOL WITH CODE INE #4 300/60 MG) 1 TAB PO Q6H PRN PRN PAIN ATORVASTATIN (LIPITOR) 20 MG PO BEDTIME LOSARTAN (COZAAR) 100 MG PO DAILY NIFEdipine CC (ADALAT CC) 90 MG PO Q12HR HYDROCHLOROTHIAZIDE (HYDRODIURIL) 25 MG PO DAILY Active Meds + DC'd Last 24 Hrs Potassium Bicarbonate/Citric Acid 20 MEQ ASDIR P O (CKD) Potassium Chloride 100 ML ASDIR PRN IV Hydralazine HCl 100 MG Q8HR PO Labetalol HCl 400 MG Q8HR PO Furosemide 100 MG Q20H IV Sodium Chloride 90 ML Isosorbide Mononitrate 30 MG BID PO Magnesium 100 ML ASDIR PRN IV Magnesium Sulfate 50 ML ASDIR PRN IV Magnesium Sulfate 100 ML ASDIR PRN IV Clonidine HCl 0.2 MG Q7D TRANSDERM (CKD) Amlodipine Besylate 5 MG Q12HR PO Aspirin 81 MG DAILY FEED-TUBE Atorvastatin Calcium 40 MG DAILY FEED-TUBE Albuterol/Ipratropium 3 ML RTQ6H INH Perflutren Lipid Microsphere DIRECTED ONCE PRN IV Sodium Chloride DIRECTED ONCE PRN IV Sodium Chloride 5 ML ONCE PRN IV Nicardipine HCl 250 ML TITRATE IV Dexmedetomidine HCl 400 MCG TITRATE IV Sodium Chloride 96 ML Dextrose/Water 25 ML ASDIR PRN IV Glucagon 1 MG ASDIR PRN IM Insulin Human Lispro LOW DOSE SCALE ASDIR SUBQ Sterile Water 1 ML ASDIR PRN IM Propofol 100 ML TITRATE IV (CKD) Midazolam HCl 100 ML TITRATE IV (CKD) Epinephrine 8 MG TITRATE IV (CKD) Sodium Chloride 242 ML Norepinephrine Bitartrate 16 MG TITRATE IV Sodium Chloride 234 ML Perflutren Lipid Microsphere DIRECTED ONCE PRN IV Sodium Chloride DIRECTED ONCE PRN IV Sodium Chloride 5 ML ONCE PRN IV Fentanyl Citrate 50 ML TITRATE IV (CKD) Famotidine 20 MG DAILY PO Heparin Sodium (Porcine) 5,000 UNIT Q12HR SUBQ Esmolol HCl 250 ML TITRATE IV (CKD) Nutrition asessment: The data set between the solid lines has been im ported from the dietitian's assessment. Any exceptions have been noted under Provider comments. BMI Calculated: 34.5 Nutrition related diagnosis: Obese Nutrition diagnosis details: BMI 30-39.9 Nutrition problem: Inadequate oral intake Nutrition etiology: RESPIRATORY STATUS Nutrition signs and symptoms: PT SEDATED ON MECH ANICAL VENT,, NPO, NEED FOR ENTERAL NUTRITIO, N Nutrition prescription: -RECOMMEND DECREASE JEVI TY 1.5 TO 30 ML/HR (PROVIDES 1080 KCAL, 45 GM PRO, 547 ML FREE WATER, AND 720 ML TOTAL VOLUME) PT RECEIVING ADDITIONAL 784 KCAL FROM PRO POFOL @ 29.7 ML/HR. RECOMMEND 24 GM HEALTHYSHOT X4/ DAY. FWF 55 ML/HR WITH NO IVF'S. FWF 30 ML Q2H W ITH IVF'S. RD TO F/U PER FNS PROTOCOL. Dietitian name: MAYCO Miller, RDN, LD Assessment completed: 06/25/20 Provider comments on imported dietitian assessme nt: Physical Exam Head/Eyes: atraumatic, normocephalic ENT: moist mucosal membranes Neck: non-tender, supple/no meningismus, no brui t / NL carotids, no masses or swelling Cardiovascular: irregular rate and rhythm, murmu r Respiratory: decreased breath sounds, intubated/ mech vent Abdomen: non-tender, normal bowel sounds, soft Neuro/RADIOTELEGRAPHIST: Sedated Diagnosis, Assessment Plan Free Text A P: Assessment 1. #Lethargy AMS- Likely 2/2 metabolic encephalo shirley -CT brain on 06/21 showed no acute intracranial hemorrhage, with only mild chronic microvascular ischem ic injuries. Also, there are faint calcifications in the bilateral basal ganglia. -CT 06/29/2020 showed scattered ventricu lar and subcortical densities that are new and greater than expected for age. -EEG ws abnormal in wakefulness and drowsiness, suggestive of encephalopathy. -As strokes are in different blood supply region s, Echo ordered. -Monitor for paroxysmal atrial fib 2. acute resp. failure etc. Plan -Continue with current care -D/w nurse -Will continue to follow closely- consider repea t eeg if needed Jessica Parson 06/30/20 1108: Attestations Teaching Physician Attestation F/U visit w/ resident: I saw the patient with the resident ON 06/29/19 AN D agree with the resident's findings and plan. Discussed with nurse, needs bubble study to eval uate for PFO as well Electronically Signed by Tai Haynes MD R1 on 0 06/29/20 at 1423 Electronically Signed by Jessica Parson MD on at 1109 Addendum 1: 06/30/20 1222 by Tai Haynes MD R1 for Jessica Parson MD Spoke to patient's aunt Shayne Salinas on 06/29/2019 to inform her MRI results, neuro status and plan to perform bubble study Electronically Signed by Tai Haynes MD R1 on 0 06/30/20 at 1224 RPT #:[id number] END OF REPORT 2020-06-29 11:37:00-00:00 [facility] Neurology Progress Note REPORT#:[id number] REPORT STATUS: Signed DATE:06/29/20 TIME: 1137 PATIENT: JORGE GOINS UNIT #: [id number] ROOM/BED: [address] : [birth year] AGE: 34 SEX: M ATTEND: Luis M Olmedo MD ADM AUTHOR: Tai Haynes MD R1 * ALL edits or amendments must be made on the rimidi/computer document * See Addendum Tai Haynes 06/29/20 1137: Subjective Chief Complaint: Lethargy and AMS HPI: Patient still sedated and in tubated, no response to pain. Patient dos not appear to be in any acute distress. Review of Systems Unable to obtain due to: Sedated and intubated Objective General VS: Last Documented: Result Date Time Pulse Ox 100 06/29 938 FiO2 30 06/29 0939 O2 Delivery Ventilator 06/29 938 Pulse 65 06/29 0939 B/P 131/60 06/29 0715 B/P Mean 86 06/29 0715 Resp 25 06/29 0715 Temp 36.8 06/29 0400 O2 Flow Rate 0 06/26 0936 PATIENT WEIGHT: Weight (lb): 247 Weight (oz): 9.27 Weight (kg): 112.300 Medications Current Home Medications ALBUTEROL (PROAIR HFA 90 MCG/ACT 8.5 GM) 2 PUFF INH RTQ6H PRN PRN SOB ASPIRIN EC (ECOTRIN) 81 MG PO DAILY CARVEDILOL (COREG) 25 MG PO BID MEALS ACETAMINOPHEN/CODEINE (TYLENOL WITH CODE INE #4 300/60 MG) 1 TAB PO Q6H PRN PRN PAIN ATORVASTATIN (LIPITOR) 20 MG PO BEDTIME LOSARTAN (COZAAR) 100 MG PO DAILY NIFEdipine CC (ADALAT CC) 90 MG PO Q12HR HYDROCHLOROTHIAZIDE (HYDRODIURIL) 25 MG PO DAILY Active Meds + DC'd Last 24 Hrs Potassium Bicarbonate/Citric Acid 20 MEQ ASDIR P O (CKD) Potassium Chloride 100 ML ASDIR PRN IV Hydralazine HCl 100 MG Q8HR PO Labetalol HCl 400 MG Q8HR PO Furosemide 100 MG Q20H IV Sodium Chloride 90 ML Isosorbide Mononitrate 30 MG BID PO Magnesium 100 ML ASDIR PRN IV Magnesium Sulfate 50 ML ASDIR PRN IV Magnesium Sulfate 100 ML ASDIR PRN IV Clonidine HCl 0.2 MG Q7D TRANSDERM (CKD) Amlodipine Besylate 5 MG Q12HR PO Aspirin 81 MG DAILY FEED-TUBE Atorvastatin Calcium 40 MG DAILY FEED-TUBE Albuterol/Ipratropium 3 ML RTQ6H INH Perflutren Lipid Microsphere DIRECTED ONCE PRN IV Sodium Chloride DIRECTED ONCE PRN IV Sodium Chloride 5 ML ONCE PRN IV Nicardipine HCl 250 ML TITRATE IV Dexmedetomidine HCl 400 MCG TITRATE IV Sodium Chloride 96 ML Dextrose/Water 25 ML ASDIR PRN IV Glucagon 1 MG ASDIR PRN IM Insulin Human Lispro LOW DOSE SCALE ASDIR SUBQ Sterile Water 1 ML ASDIR PRN IM Propofol 100 ML TITRATE IV (CKD) Midazolam HCl 100 ML TITRATE IV (CKD) Epinephrine 8 MG TITRATE IV (CKD) Sodium Chloride 242 ML Norepinephrine Bitartrate 16 MG TITRATE IV Sodium Chloride 234 ML Perflutren Lipid Microsphere DIRECTED ONCE PRN IV Sodium Chloride DIRECTED ONCE PRN IV Sodium Chloride 5 ML ONCE PRN IV Fentanyl Citrate 50 ML TITRATE IV (CKD) Famotidine 20 MG DAILY PO Heparin Sodium (Porcine) 5,000 UNIT Q12HR SUBQ Esmolol HCl 250 ML TITRATE IV (CKD) Nutrition asessment: The data set between the solid lines has been im ported from the dietitian's assessment. Any exceptions have been noted under Provider comments. BMI Calculated: 34.5 Nutrition related diagnosis: Obese Nutrition diagnosis details: BMI 30-39.9 Nutrition problem: Inadequate oral intake Nutrition etiology: RESPIRATORY STATUS Nutrition signs and symptoms: PT SEDATED ON MECH ANICAL VENT,, NPO, NEED FOR ENTERAL NUTRITIO, N Nutrition prescription: -RECOMMEND DECREASE JEVI TY 1.5 TO 30 ML/HR (PROVIDES 1080 KCAL, 45 GM PRO, 547 ML FREE WATER, AND 720 ML TOTAL VOLUME) PT RECEIVING ADDITIONAL 784 KCAL FROM PRO POFOL @ 29.7 ML/HR. RECOMMEND 24 GM HEALTHYSHOT X4/ DAY. FWF 55 ML/HR WITH NO IVF'S. FWF 30 ML Q2H W ITH IVF'S. RD TO F/U PER FNS PROTOCOL. Dietitian name: Brooke Villa, MAYCO, RDN, LD Assessment completed: 06/25/20 Provider comments on imported dietitian assessme nt: Physical Exam Head/Eyes: atraumatic, normocephalic ENT: moist mucosal membranes Neck: non-tender, supple/no meningismus, no brui t / NL carotids, no masses or swelling Cardiovascular: irregular rate and rhythm, murmu r Respiratory: decreased breath sounds, intubated/ mech vent Abdomen: non-tender, normal bowel sounds, soft Neuro/RADIOTELEGRAPHIST: Sedated Diagnosis, Assessment Plan Free Text A P: Assessment 1. #Lethargy AMS- Likely 2/2 metabolic encephalo shirley -CT brain on 06/21 showed no acute intracranial hemorrhage, with only mild chronic microvascular ischem ic injuries. Also, there are faint calcifications in the bilateral basal ganglia. -CT 06/29/2020 showed scattered ventricu lar and subcortical densities that are new and greater than expected for age. -EEG ws abnormal in wakefulness and drowsiness, suggestive of encephalopathy. -As strokes are in different blood supply region s, Echo ordered. -Monitor for paroxysmal atrial fib 2. acute resp. failure etc. Plan -Continue with current care -D/w nurse -Will continue to follow closely- consider repea t eeg if needed Jessica Parson 06/30/20 1108: Attestations Teaching Physician Attestation F/U visit w/ resident: I saw the patient with the resident ON 06/29/19 AN D agree with the resident's findings and plan. Discussed with nurse, needs bubble study to eval uate for PFO as well Electronically Signed by Tai Haynes MD R1 on 0 06/29/20 at 1423 Electronically Signed by Jessica Parson MD on at 1109 Addendum 1: 06/30/20 1222 by Tai Haynes MD R1 Spoke to patient's aunt Shayne Salinas on 06/29/2019 to inform her MRI results, neuro status and plan to perform bubble study Electronically Signed by Tai Haynes MD R1 on 0 06/30/20 at 1224 Electronically Signed by Jessica Parson MD on at 2359 RPT #:[id number] END OF REPORT 2020-06-29 10:26:00-00:00 [facility] Vascular Surgery Progress Note REPORT#:[id number] REPORT STATUS: Signed DATE:06/29/20 TIME: 1026 PATIENT: JORGE GOINS UNIT #: [id number] ROOM/BED: [address] : [birth year] AGE: 34 SEX: M ATTEND: Luis M Olmedo MD ADM AUTHOR: Lorenzo Cardoza MD * ALL edits or amendments must be made on the el [employer]/computer document * Subjective Chief Complaint: Intubated and sedated at time of examination HPI 34 year old male with complicated type B dissect ion with possible new stroke. Objective HEENT: anicteric Neck: supple Cardiovascular: regular rate, hypotensive on mul tiple vasopressors Respiratory: symmetric expansion Abdomen: soft, non-tender, no distention, no gua rding Genitourinary: zuñiga Extremities: moves all, palpable radial and dors diana pedis pulses bilaterally Neuro/RADIOTELEGRAPHIST: intubated and sedated Skin: no flank or back ecchymosis Psychiatry: normal mood Diagnosis, Assessment Plan Free Text A P: 34 year old male with complicated type B dissection in need of extension TEVAR when stable Keep BP less than 120mmhg, ok to allow hypertens ion to facilitate exubtation Extubate when feasible Will need further TEVAR when stable at 1027 RPT #:[id number] END OF REPORT 2020-06-29 09:03:00-00:[address] [facility] ([facility]) Nephrology Progress Note REPORT#:[id number] REPORT STATUS: Signed DATE:06/29/20 TIME: 902 PATIENT: JORGE GOINS UNIT #: [id number] ROOM/BED: [address] : [birth year] AGE: 34 SEX: M ATTEND: Luis M Olmedo MD ADM AUTHOR: Giancarlo Izaguirre MD R2 * ALL edits or amendments must be made on the el [employer]/computer document * Subjective Comments: events noted Review of Systems Unable to obtain due to: ams Objective General VS/I O: Vital Signs: Date Time Temp Pulse Resp B/P B/P Pulse O2 O2 F low FiO2 Mean Ox Delivery Rate 06/29 1502 74 100 30 06/29 1242 71 22 99 06/29 1230 68 24 132/63 89 100 06/29 1215 69 20 132/63 88 99 06/29 1214 70 99 30 06/29 1200 98.6 06/29 1200 67 11 137/61 88 100 06/29 1145 66 23 137/61 88 99 06/29 1130 66 25 139/63 91 99 06/29 1115 67 24 135/63 90 100 /04 1100 66 24 145/67 98 100 / 1045 65 24 136/64 93 100 06/29 1030 65 23 137/63 90 100 01/04 1015 65 25 134/62 88 100 01/04 1000 65 25 134/60 88 100 01/04 0945 65 24 136/61 88 100 01/04 0939 100 Ventilator 30 01/04 0939 65 100 30 01/04 0930 65 25 136/60 87 100 01/04 0915 66 7 140/63 90 100 01/04 0900 66 28 139/60 87 100 01/04 0845 66 28 148/64 92 100 01/04 0830 66 25 147/63 91 100 01/04 0815 65 27 144/60 91 100 01/04 0800 98.0 01/04 0800 Ventilator 01/04 0800 65 24 145/65 93 100 01/04 0745 65 27 142/66 95 100 01/04 0730 65 26 136/64 91 99 01/04 0715 65 25 131/60 86 99 01/04 0700 65 24 129/59 84 99 01/04 0645 66 25 131/59 85 99 01/04 0630 66 25 130/59 85 99 01/04 0615 66 25 129/61 85 100 01/04 0600 66 27 130/66 87 100 01/04 0545 65 27 133/61 88 100 01/04 0530 66 19 139/69 91 100 01/04 0515 65 17 142/65 93 100 01/04 0500 65 19 141/66 95 100 01/04 0445 65 12 134/63 90 99 01/04 0430 66 14 125/55 82 98 01/04 0419 66 99 30 01/04 0415 66 6 138/63 91 100 01/04 0400 98.2 Ventilator 30 01/04 0400 66 19 131/59 85 100 01/04 0345 66 13 131/59 85 100 01/04 0330 67 12 131/58 84 100 01/04 0315 68 24 127/57 82 100 01/04 0300 68 29 128/57 83 100 01/04 0245 69 30 132/60 86 100 01/04 0235 142/63 90 01/04 0234 69 33 142/63 90 97 01/04 0145 67 28 132/62 89 100 01/04 0130 67 23 131/58 84 100 01/04 0115 67 21 131/58 84 100 01/04 0100 67 12 133/60 86 100 01/04 0045 67 15 131/58 84 100 01/04 0030 67 11 127/57 82 100 01/04 0015 67 27 123/56 81 100 01/04 0000 98.4 Ventilator 30 01/04 0000 67 29 125/56 82 100 01/03 2345 68 27 125/59 85 99 01/03 2330 67 25 127/57 82 99 01/03 2315 67 23 126/57 82 100 01/03 2300 67 17 125/56 81 100 01/03 2247 100 Ventilator 30 01/03 2247 67 99 30 01/03 2245 67 18 125/56 80 100 01/03 2230 67 18 126/56 81 100 01/03 2215 67 13 127/58 84 100 01/03 2200 67 22 133/60 86 100 01/03 2145 67 12 134/62 89 100 01/03 2130 67 9 138/64 92 100 01/03 2115 67 12 139/66 94 100 01/03 2100 67 10 139/67 94 100 01/03 5 68 13 139/66 93 100 01/03 2029 67 15 138/65 94 100 01/03 2014 67 18 128/63 88 99 01/03 1999 67 20 140/67 95 100 01/03 1945 67 6 137/64 92 100 01/03 1930 68 26 125/58 83 99 01/03 1915 67 26 136/62 89 99 01/03 1900 Ventilator 30 01/03 1900 98.4 Ventilator 30 01/03 1900 67 12 131/58 86 99 01/03 1845 66 11 134/64 88 99 01/03 1830 66 15 135/62 89 100 01/03 1815 65 23 131/59 84 100 01/03 1800 65 13 131/61 87 100 01/03 1745 65 8 130/60 86 100 01/03 1730 64 22 123/59 82 100 01/03 1715 64 8 131/61 87 100 01/03 1700 63 11 126/60 84 100 01/03 1645 63 9 127/58 84 100 01/03 1630 63 24 130/59 85 100 01/03 1615 63 5 126/58 82 100 01/03 1600 98.3 01/03 1600 63 27 124/57 82 100 24 hour I O ending at 0700: 06/29 0700 / 1900 Intake Total 3835.00 Output Total 3500 Balance 335.00 Intake, Free 90 Water Intake, IV 3015.00 Intake, Other 180 Intake, Tube 550 Feeding Output, Urine 3500 Patient 112.3 kg Weight Weight Bed scale Measurement Method Medications Active Meds + DC'd Last 24 Hrs Perflutren Lipid Microsphere DIRECTED ONCE PRN IV Sodium Chloride DIRECTED ONCE PRN IV Sodium Chloride 5 ML ONCE PRN IV Potassium Bicarbonate/Citric Acid 20 MEQ ASDIR P O (CKD) Potassium Chloride 100 ML ASDIR PRN IV Hydralazine HCl 100 MG Q8HR PO Labetalol HCl 400 MG Q8HR PO Furosemide 100 MG Q20H IV Sodium Chloride 90 ML Isosorbide Mononitrate 30 MG BID PO Magnesium 100 ML ASDIR PRN IV Magnesium Sulfate 50 ML ASDIR PRN IV Magnesium Sulfate 100 ML ASDIR PRN IV Clonidine HCl 0.2 MG Q7D TRANSDERM (CKD) Amlodipine Besylate 5 MG Q12HR PO Aspirin 81 MG DAILY FEED-TUBE Atorvastatin Calcium 40 MG DAILY FEED-TUBE Albuterol/Ipratropium 3 ML RTQ6H INH Perflutren Lipid Microsphere DIRECTED ONCE PRN IV Sodium Chloride DIRECTED ONCE PRN IV Sodium Chloride 5 ML ONCE PRN IV Nicardipine HCl 250 ML TITRATE IV Dexmedetomidine HCl 400 MCG TITRATE IV Sodium Chloride 96 ML Dextrose/Water 25 ML ASDIR PRN IV Glucagon 1 MG ASDIR PRN IM Insulin Human Lispro LOW DOSE SCALE ASDIR SUBQ Sterile Water 1 ML ASDIR PRN IM Propofol 100 ML TITRATE IV (CKD) Midazolam HCl 100 ML TITRATE IV (CKD) Epinephrine 8 MG TITRATE IV (CKD) Sodium Chloride 242 ML Norepinephrine Bitartrate 16 MG TITRATE IV Sodium Chloride 234 ML Perflutren Lipid Microsphere DIRECTED ONCE PRN IV Sodium Chloride DIRECTED ONCE PRN IV Sodium Chloride 5 ML ONCE PRN IV Fentanyl Citrate 50 ML TITRATE IV (CKD) Famotidine 20 MG DAILY PO Heparin Sodium (Porcine) 5,000 UNIT Q12HR SUBQ Esmolol HCl 250 ML TITRATE IV (CKD) Physical Exam General appearance: obese, respiratory support Head/eyes: normal conjunctiva/sclera Neck: no JVD Respiratory: symmetric expansion Genitourinary: zuñiga, urine Musculoskeletal: normal inspection Neuro/RADIOTELEGRAPHIST: SEDATED Hemodialysis access: Type: vascath Psychiatry: unable to evaluate Results Findings/Data: Laboratory Tests 06/29 527 Blood Gas Puncture Site R Radial ABG pH (7.35 - 7.45 pH units) 7.45 ABG pCO2 (35 - 48 mmHg) 35.8 ABG pO2 (83 - 108 mmHg) 116.5 H ABG PO2/FiO2 Ratio (mm/Hg) 388.33 ABG HCO3 (21 - 28 mmol/L) 24.6 ABG Total CO2 (22 - 29 mmol/L) 24.4 ABG O2 Sat Calc/Denise (94 - 98 %) 98.8 H ABG Base Excess (-2 - 3 mmol/L) 0.7 Emmanuel Test Positive Sodium (138 - 146 mmol/L) 143 Potassium (3.5 - 4.5 mmol/L) 3.9 Ionized Calcium (1.15 - 1.33 MMOL/L) 1.17 Respiration Rate (12 - 20 /MIN) 12 O2 Delivery Device Adult Vent Vent Mode SIMV FiO2 (%) 30 Pressure Support (cmH2O) 10 Instrument (Specimen Descript) Arterial Laboratory Tests 06/29 06/29 06/29 0812 0528 0249 Chemistry Sodium (137 - 145 mmol/L) 142 Potassium (3.4 - 5.0 mmol/L) 4.0 Chloride (98 - 107 mmol/L) 109 H Carbon Dioxide (22 - 30 mmol/L) 25 BUN (9 - 20 mg/dL) 32 H Creatinine (0.7 - 1.3 mg/dL) 1.1 Glomerular Filtr Rate (>60) 99 Glucose (74 - 106 mg/dL) 94 POC Glucose (74 - 100 mg/dL) 107 H Calcium (8.4 - 10.2 mg/dL) 8.0 L Magnesium (1.6 - 2.3 mg/dL) 2.0 1.8 Laboratory Tests 06/29 0249 Hematology WBC (5.0 - 12.0 x10 3/uL) 5.0 RBC (4.70 - 6.10 x10 6/uL) 3.23 L Hgb (14.0 - 18.0 g/dL) 9.3 L Hct (37.0 - 49.0 %) 29.8 L MCV (80 - 94 fL) 92 MCH (27 - 31 pg) 28.8 MCHC (33 - 37 g/dL) 31.2 L RDW (11.5 - 15.5 %) 16.7 H Plt Count (130 - 400 x10 3/uL) 229 MPV (9.4 - 16.4 fL) 11.0 Neut % (Auto) (43 - 65 %) 75.8 H Lymph % (Auto) (20.5 - 45.5 %) 11.4 L Citrus % (Auto) (5.5 - 11.7 %) 9.4 Eos % (Auto) (0.9 - 2.9 %) 2.2 Baso % (Auto) (0.2 - 1.0 %) 0.2 Neut # (Auto) (2.2 - 4.8 x10 3/uL) 3.80 Lymph # (Auto) (1.3 - 2.9 x10 3/uL) 0.57 L Citrus # (Auto) (0.3 - 0.8 x10 3/uL) 0.47 Eos # (Auto) (0.0 - 0.2 x10 3/uL) 0.11 Baso # (Auto) (0.0 - 0.1 x10 3/uL) 0.01 Immature Gran % (0.0 - 2.0 %) 1.0 Nucleated RBC % (0 - 1.0 %) 0.0 Radiology data: Recent Impressions: CAT SCAN - CT HEAD/BRAIN W/O CONT 06/29 0210 Report Impression - Status: SIGNED Entered: 06/29/2020 0301 IMPRESSION: 1. Tiny acute infarcts in the left frontal and o ccipital lobes are better demonstrated on prior MRI. No parenchymal hemorrhage is seen. 2. Prominent scattered periventricular and subco rtical hypodensities are redemonstrated. These findings are nonspecif ic but significantly greater than expected for age and appear new sin ce October 2019. Recommend follow up MRI brain with contrast. Impression By: [email or web address] - Bhavana Whitlock MD Diagnosis, Assessment Plan Free Text A P: JENNIFER hypotension AAA lactic acidosis severe metabolic acidosis Cr stable/improved; UOP good lasix gtt per cards Acidosis resolved will monitor Electronically Signed by Giancarlo Izaguirre MD R2 on at 1559 RPT #:[id number] END OF REPORT 2020-06-29 09:03:00-00:[address] [facility] ([facility]) Nephrology Progress Note REPORT#:[id number] REPORT STATUS: Signed DATE:06/29/20 TIME: 902 PATIENT: JORGE GOINS UNIT #: [id number] ROOM/BED: [address] : [birth year] AGE: 34 SEX: M ATTEND: Luis M Olmedo MD ADM AUTHOR: Giancarlo Izaguirre MD R2 * ALL edits or amendments must be made on the [employer]idi/computer document * Giancarlo Izaguirre 06/29/20 0903: Subjective Comments: events noted Review of Systems Unable to obtain due to: ams Objective General VS/I O: Vital Signs: Date Time Temp Pulse Resp B/P B/P Pulse O2 O2 F low FiO2 Mean Ox Delivery Rate 06/29 1502 74 100 30 01/04 1242 71 22 99 01/04 1230 68 24 132/63 89 100 01/04 1215 69 20 132/63 88 99 01/04 1214 70 99 30 01/04 1200 98.6 01/04 1200 67 11 137/61 88 100 01/04 1145 66 23 137/61 88 99 01/04 1130 66 25 139/63 91 99 01/04 1115 67 24 135/63 90 100 01/04 1100 66 24 145/67 98 100 01/04 1045 65 24 136/64 93 100 01/04 1030 65 23 137/63 90 100 01/04 1015 65 25 134/62 88 100 01/04 1000 65 25 134/60 88 100 01/04 0945 65 24 136/61 88 100 01/04 0939 100 Ventilator 30 01/04 0939 65 100 30 01/04 0930 65 25 136/60 87 100 01/04 0915 66 7 140/63 90 100 01/04 0900 66 28 139/60 87 100 01/04 0845 66 28 148/64 92 100 01/04 0830 66 25 147/63 91 100 01/04 0815 65 27 144/60 91 100 01/04 0800 98.0 01/04 0800 Ventilator 01/04 0800 65 24 145/65 93 100 01/04 0745 65 27 142/66 95 100 01/04 0730 65 26 136/64 91 99 01/04 0715 65 25 131/60 86 99 01/04 0700 65 24 129/59 84 99 01/04 0645 66 25 131/59 85 99 01/04 0630 66 25 130/59 85 99 01/04 0615 66 25 129/61 85 100 01/04 0600 66 27 130/66 87 100 01/04 0545 65 27 133/61 88 100 01/04 0530 66 19 139/69 91 100 01/04 0515 65 17 142/65 93 100 01/04 0500 65 19 141/66 95 100 01/04 0445 65 12 134/63 90 99 01/04 0430 66 14 125/55 82 98 01/04 0419 66 99 30 01/04 0415 66 6 138/63 91 100 01/04 0400 98.2 Ventilator 30 01/04 0400 66 19 131/59 85 100 01/04 0345 66 13 131/59 85 100 01/04 0330 67 12 131/58 84 100 01/04 0315 68 24 127/57 82 100 01/04 0300 68 29 128/57 83 100 01/04 0245 69 30 132/60 86 100 01/04 0235 142/63 90 01/04 0234 69 33 142/63 90 97 01/04 0145 67 28 132/62 89 100 01/04 0130 67 23 131/58 84 100 01/04 0115 67 21 131/58 84 100 01/04 0100 67 12 133/60 86 100 01/04 0045 67 15 131/58 84 100 01/04 0030 67 11 127/57 82 100 01/04 0015 67 27 123/56 81 100 01/04 0000 98.4 Ventilator 30 01/04 0000 67 29 125/56 82 100 01/03 2345 68 27 125/59 85 99 01/03 2330 67 25 127/57 82 99 01/03 2315 67 23 126/57 82 100 01/03 2300 67 17 125/56 81 100 01/03 2247 100 Ventilator 30 01/03 2247 67 99 30 01/03 2245 67 18 125/56 80 100 01/03 2230 67 18 126/56 81 100 01/03 2215 67 13 127/58 84 100 01/03 2200 67 22 133/60 86 100 01/03 2145 67 12 134/62 89 100 01/03 2130 67 9 138/64 92 100 01/03 2115 67 12 139/66 94 100 01/03 2100 67 10 139/67 94 100 01/03 2045 68 13 139/66 93 100 /2029 67 15 138/65 94 100 06/28 2014 67 18 128/63 88 99 06/28 1999 67 20 140/67 95 100 / 1945 67 6 137/64 92 100 01/03 1930 68 26 125/58 83 99 / 1915 67 26 136/62 89 99 01/03 1900 Ventilator 30 / 1900 98.4 Ventilator 30 / 1900 67 12 131/58 86 99 01/03 1845 66 11 134/64 88 99 01/03 1830 66 15 135/62 89 100 01/03 1815 65 23 131/59 84 100 01/03 1800 65 13 131/61 87 100 01/03 1745 65 8 130/60 86 100 01/03 1730 64 22 123/59 82 100 01/03 1715 64 8 131/61 87 100 01/03 1700 63 11 126/60 84 100 01/03 1645 63 9 127/58 84 100 01/03 1630 63 24 130/59 85 100 01/03 1615 63 5 126/58 82 100 01/03 1600 98.3 01/03 1600 63 27 124/57 82 100 24 hour I O ending at 0700: 06/29 0700 06/28 1900 Intake Total 3835.00 Output Total 3500 Balance 335.00 Intake, Free 90 Water Intake, IV 3015.00 Intake, Other 180 Intake, Tube 550 Feeding Output, Urine 3500 Patient 112.3 kg Weight Weight Bed scale Measurement Method Medications Active Meds + DC'd Last 24 Hrs Perflutren Lipid Microsphere DIRECTED ONCE PRN IV Sodium Chloride DIRECTED ONCE PRN IV Sodium Chloride 5 ML ONCE PRN IV Potassium Bicarbonate/Citric Acid 20 MEQ ASDIR P O (CKD) Potassium Chloride 100 ML ASDIR PRN IV Hydralazine HCl 100 MG Q8HR PO Labetalol HCl 400 MG Q8HR PO Furosemide 100 MG Q20H IV Sodium Chloride 90 ML Isosorbide Mononitrate 30 MG BID PO Magnesium 100 ML ASDIR PRN IV Magnesium Sulfate 50 ML ASDIR PRN IV Magnesium Sulfate 100 ML ASDIR PRN IV Clonidine HCl 0.2 MG Q7D TRANSDERM (CKD) Amlodipine Besylate 5 MG Q12HR PO Aspirin 81 MG DAILY FEED-TUBE Atorvastatin Calcium 40 MG DAILY FEED-TUBE Albuterol/Ipratropium 3 ML RTQ6H INH Perflutren Lipid Microsphere DIRECTED ONCE PRN IV Sodium Chloride DIRECTED ONCE PRN IV Sodium Chloride 5 ML ONCE PRN IV Nicardipine HCl 250 ML TITRATE IV Dexmedetomidine HCl 400 MCG TITRATE IV Sodium Chloride 96 ML Dextrose/Water 25 ML ASDIR PRN IV Glucagon 1 MG ASDIR PRN IM Insulin Human Lispro LOW DOSE SCALE ASDIR SUBQ Sterile Water 1 ML ASDIR PRN IM Propofol 100 ML TITRATE IV (CKD) Midazolam HCl 100 ML TITRATE IV (CKD) Epinephrine 8 MG TITRATE IV (CKD) Sodium Chloride 242 ML Norepinephrine Bitartrate 16 MG TITRATE IV Sodium Chloride 234 ML Perflutren Lipid Microsphere DIRECTED ONCE PRN IV Sodium Chloride DIRECTED ONCE PRN IV Sodium Chloride 5 ML ONCE PRN IV Fentanyl Citrate 50 ML TITRATE IV (CKD) Famotidine 20 MG DAILY PO Heparin Sodium (Porcine) 5,000 UNIT Q12HR SUBQ Esmolol HCl 250 ML TITRATE IV (CKD) Physical Exam General appearance: obese, respiratory support Head/eyes: normal conjunctiva/sclera Neck: no JVD Respiratory: symmetric expansion Genitourinary: zuñiga, urine Musculoskeletal: normal inspection Neuro/RADIOTELEGRAPHIST: SEDATED Hemodialysis access: Type: vascath Psychiatry: unable to evaluate Results Findings/Data: Laboratory Tests 06/29 527 Blood Gas Puncture Site R Radial ABG pH (7.35 - 7.45 pH units) 7.45 ABG pCO2 (35 - 48 mmHg) 35.8 ABG pO2 (83 - 108 mmHg) 116.5 H ABG PO2/FiO2 Ratio (mm/Hg) 388.33 ABG HCO3 (21 - 28 mmol/L) 24.6 ABG Total CO2 (22 - 29 mmol/L) 24.4 ABG O2 Sat Calc/Denise (94 - 98 %) 98.8 H ABG Base Excess (-2 - 3 mmol/L) 0.7 Emmanuel Test Positive Sodium (138 - 146 mmol/L) 143 Potassium (3.5 - 4.5 mmol/L) 3.9 Ionized Calcium (1.15 - 1.33 MMOL/L) 1.17 Respiration Rate (12 - 20 /MIN) 12 O2 Delivery Device Adult Vent Vent Mode SIMV FiO2 (%) 30 Pressure Support (cmH2O) 10 Instrument (Specimen Descript) Arterial Laboratory Tests 06/29 0528 0249 Chemistry Sodium (137 - 145 mmol/L) 142 Potassium (3.4 - 5.0 mmol/L) 4.0 Chloride (98 - 107 mmol/L) 109 H Carbon Dioxide (22 - 30 mmol/L) 25 BUN (9 - 20 mg/dL) 32 H Creatinine (0.7 - 1.3 mg/dL) 1.1 Glomerular Filtr Rate (>60) 99 Glucose (74 - 106 mg/dL) 94 POC Glucose (74 - 100 mg/dL) 107 H Calcium (8.4 - 10.2 mg/dL) 8.0 L Magnesium (1.6 - 2.3 mg/dL) 2.0 1.8 Laboratory Tests 06/29 0249 Hematology WBC (5.0 - 12.0 x10 3/uL) 5.0 RBC (4.70 - 6.10 x10 6/uL) 3.23 L Hgb (14.0 - 18.0 g/dL) 9.3 L Hct (37.0 - 49.0 %) 29.8 L MCV (80 - 94 fL) 92 MCH (27 - 31 pg) 28.8 MCHC (33 - 37 g/dL) 31.2 L RDW (11.5 - 15.5 %) 16.7 H Plt Count (130 - 400 x10 3/uL) 229 MPV (9.4 - 16.4 fL) 11.0 Neut % (Auto) (43 - 65 %) 75.8 H Lymph % (Auto) (20.5 - 45.5 %) 11.4 L Citrus % (Auto) (5.5 - 11.7 %) 9.4 Eos % (Auto) (0.9 - 2.9 %) 2.2 Baso % (Auto) (0.2 - 1.0 %) 0.2 Neut # (Auto) (2.2 - 4.8 x10 3/uL) 3.80 Lymph # (Auto) (1.3 - 2.9 x10 3/uL) 0.57 L Citrus # (Auto) (0.3 - 0.8 x10 3/uL) 0.47 Eos # (Auto) (0.0 - 0.2 x10 3/uL) 0.11 Baso # (Auto) (0.0 - 0.1 x10 3/uL) 0.01 Immature Gran % (0.0 - 2.0 %) 1.0 Nucleated RBC % (0 - 1.0 %) 0.0 Radiology data: Recent Impressions: CAT SCAN - CT HEAD/BRAIN W/O CONT 06/29 0210 Report Impression - Status: SIGNED Entered: 06/29/2020 0301 IMPRESSION: 1. Tiny acute infarcts in the left frontal and o ccipital lobes are better demonstrated on prior MRI. No parenchymal hemorrhage is seen. 2. Prominent scattered periventricular and subco rtical hypodensities are redemonstrated. These findings are nonspecif ic but significantly greater than expected for age and appear new sin ce October 2019. Recommend follow up MRI brain with contrast. 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 ([facility]) Clinical Note REPORT#:[id number] REPORT STATUS: Signed DATE:06/28/20 TIME: 2235 PATIENT: JORGE GOINS UNIT #: [id number] ROOM/BED: [address] : [birth year] AGE: 34 SEX: M ATTEND: Luis M Olmedo MD ADM AUTHOR: Vic Amaya MD * ALL edits or amendments must be made on the el [employer]/computer document * Clinical Note Note: Trach and PEG pebding family decision Electronically Signed by Vic Amaya MD on 07/03 at 1903 RPT #:[id number] END OF REPORT 2020-06-28 22:13:00-00:[address] [facility] ([facility] Neurology Progress Note REPORT#:[id number] REPORT STATUS: Signed DATE:06/28/20 TIME: 2212 PATIENT: JORGE GOINS UNIT #: [id number] ROOM/BED: [address] : [birth year] AGE: 35 SEX: M ATTEND: Raphael Davila MD ADM AUTHOR: Jessica Parson MD * ALL edits or amendments must be made on the [employer] document * Subjective Comments: no acute overnight neurological events remains intubated Review of Systems Unable to obtain due to: patient condition Objective General VS: Last Documented: Result Date Time FiO2 30 06/28 1900 O2 Delivery Ventilator 06/28 1899 Temp 36.9 06/28 190 Pulse Ox 99 06/28 1900 B/P 131/58 06/28 1900 B/P Mean 86 06/28 1900 Pulse 67 06/28 1900 Resp 12 06/28 1900 O2 Flow Rate 0 06/26 0936 PATIENT WEIGHT: Weight (lb): 232 Weight (oz): 2.35 Weight (kg): 105.300 exam intubated, sedated head is normal cephalic atraumatic cvs- regular rate respiratory support neurologic- unresponseive but on sedation eyes closed pupils equal round and reactive to light no gaze deviation face symmetric no spontaneous or purposeful movements Medications Current Home Medications ALBUTEROL (PROAIR HFA 90 MCG/ACT 8.5 GM) 2 PUFF INH RTQ6H PRN PRN SOB ASPIRIN EC (ECOTRIN) 81 MG PO DAILY CARVEDILOL (COREG) 25 MG PO BID MEALS ACETAMINOPHEN/CODEINE (TYLENOL WITH CODE INE #4 300/60 MG) 1 TAB PO Q6H PRN PRN PAIN ATORVASTATIN (LIPITOR) 20 MG PO BEDTIME LOSARTAN (COZAAR) 100 MG PO DAILY NIFEdipine CC (ADALAT CC) 90 MG PO Q12HR HYDROCHLOROTHIAZIDE (HYDRODIURIL) 25 MG PO DAILY Active Meds + DC'd Last 24 Hrs Potassium Bicarbonate/Citric Acid 20 MEQ ASDIR P O (CKD) Potassium Chloride 100 ML ASDIR PRN IV Hydralazine HCl 100 MG Q8HR PO Labetalol HCl 400 MG Q8HR PO Furosemide 100 MG Q20H IV Sodium Chloride 90 ML Isosorbide Mononitrate 30 MG BID PO Magnesium 100 ML ASDIR PRN IV Magnesium Sulfate 1 EACH ASDIR PRN IV (DC) Magnesium Sulfate 50 ML ASDIR PRN IV Magnesium Sulfate 100 ML ASDIR PRN IV Labetalol HCl 300 MG Q8HR PO (DC) Clonidine HCl 0.2 MG Q7D TRANSDERM (CKD) Amlodipine Besylate 5 MG Q12HR PO Hydralazine HCl 50 MG Q8HR PO (DC) Aspirin 81 MG DAILY FEED-TUBE Atorvastatin Calcium 40 MG DAILY FEED-TUBE Albuterol/Ipratropium 3 ML RTQ6H INH Furosemide 20 MG BID@0700,1500 IV (DC) Perflutren Lipid Microsphere DIRECTED ONCE PRN IV Sodium Chloride DIRECTED ONCE PRN IV Sodium Chloride 5 ML ONCE PRN IV Nicardipine HCl 250 ML TITRATE IV Dexmedetomidine HCl 400 MCG TITRATE IV Sodium Chloride 96 ML Dextrose/Water 25 ML ASDIR PRN IV Glucagon 1 MG ASDIR PRN IM Insulin Human Lispro LOW DOSE SCALE ASDIR SUBQ Sterile Water 1 ML ASDIR PRN IM Propofol 100 ML TITRATE IV (CKD) Midazolam HCl 100 ML TITRATE IV (CKD) Epinephrine 8 MG TITRATE IV (CKD) Sodium Chloride 242 ML Norepinephrine Bitartrate 16 MG TITRATE IV Sodium Chloride 234 ML Perflutren Lipid Microsphere DIRECTED ONCE PRN IV Sodium Chloride DIRECTED ONCE PRN IV Sodium Chloride 5 ML ONCE PRN IV Fentanyl Citrate 50 ML TITRATE IV (CKD) Famotidine 20 MG DAILY PO Heparin Sodium (Porcine) 5,000 UNIT Q12HR SUBQ Esmolol HCl 250 ML TITRATE IV (CKD) Results Findings/Data: Laboratory Tests 06/28 518 Blood Gas Puncture Site R Radial ABG pH (7.35 - 7.45 pH units) 7.43 ABG pCO2 (35 - 48 mmHg) 34.8 L ABG pO2 (83 - 108 mmHg) 102.9 ABG PO2/FiO2 Ratio (mm/Hg) 343.00 ABG HCO3 (21 - 28 mmol/L) 23.2 ABG Total CO2 (22 - 29 mmol/L) 23.2 ABG O2 Sat Calc/Denise (94 - 98 %) 98.2 H ABG Base Excess (-2 - 3 mmol/L) -0.7 Emmanuel Test Positive Sodium (138 - 146 mmol/L) 143 Potassium (3.5 - 4.5 mmol/L) 3.8 Ionized Calcium (1.15 - 1.33 MMOL/L) 1.17 Respiration Rate (12 - 20 /MIN) 12 O2 Delivery Device Adult Vent Vent Mode SIMV/PS FiO2 (%) 30 Pressure Support (cmH2O) 10 Instrument (Specimen Descript) Arterial Laboratory Tests 06/28 06/28 06/28 1219 0519 0221 Chemistry Sodium (137 - 145 mmol/L) 141 Potassium (3.4 - 5.0 mmol/L) 3.9 Chloride (98 - 107 mmol/L) 109 H Carbon Dioxide (22 - 30 mmol/L) 25 BUN (9 - 20 mg/dL) 33 H Creatinine (0.7 - 1.3 mg/dL) 1.0 Glomerular Filtr Rate (>60) 111 Glucose (74 - 106 mg/dL) 97 POC Glucose (74 - 100 mg/dL) 93 Calcium (8.4 - 10.2 mg/dL) 7.8 L Magnesium (1.6 - 2.3 mg/dL) 2.0 1.8 NT-Pro-B Natriuret Pep (0 - 299 pg/mL) 972 H Laboratory Tests 06/28 0221 Hematology WBC (5.0 - 12.0 x10 3/uL) 6.1 RBC (4.70 - 6.10 x10 6/uL) 3.25 L Hgb (14.0 - 18.0 g/dL) 9.3 L Hct (37.0 - 49.0 %) 30.6 L MCV (80 - 94 fL) 94 MCH (27 - 31 pg) 28.6 MCHC (33 - 37 g/dL) 30.4 L RDW (11.5 - 15.5 %) 16.3 H Plt Count (130 - 400 x10 3/uL) 201 MPV (9.4 - 16.4 fL) 11.6 Neut % (Auto) (43 - 65 %) 80.7 H Lymph % (Auto) (20.5 - 45.5 %) 8.0 L Citrus % (Auto) (5.5 - 11.7 %) 8.3 Eos % (Auto) (0.9 - 2.9 %) 2.0 Baso % (Auto) (0.2 - 1.0 %) 0.2 Neut # (Auto) (2.2 - 4.8 x10 3/uL) 4.95 H Lymph # (Auto) (1.3 - 2.9 x10 3/uL) 0.49 L Citrus # (Auto) (0.3 - 0.8 x10 3/uL) 0.51 Eos # (Auto) (0.0 - 0.2 x10 3/uL) 0.12 Baso # (Auto) (0.0 - 0.1 x10 3/uL) 0.01 Immature Gran % (0.0 - 2.0 %) 0.8 Nucleated RBC % (0 - 1.0 %) 0.0 Radiology Data: Recent Impressions: RADIOLOGY - XR CHEST 1 V 06/28 0445 Report Impression - Status: SIGNED Entered: 06/28/2020726 IMPRESSION: 1. Right basilar atelectasis. 2. All lines and tube are in satisfactory positi oning. Impression By: Frederick Higgins M.D. Diagnosis, Assessment Plan Free Text A P: Impression 1. Acute encephalopathy - multifactorial - metab olic/hypertensive emergency/ acute stroke 2. Acute ischemic strokes, small infarcts, suspe ct embolic source 4. hypertensive emergency - still requiring akua rdipine drip and antihypertensives being adjusted 5. acute respiratory failure requiring intubatio n 6. complicated type b aortic dissection Plan planning for trach blood pressure control, still on nicardipine dri p, cardio managing continue current care plan asa and statin will need w/u for embolic stroke d/w staff, will follow Electronically Signed by Jessica Parson MD on at 1151 RPT #:[id number] END OF REPORT 2020-06-28 15:01:00-00:[address] [facility] ([facility] Nephrology Progress Note REPORT#:[id number] REPORT STATUS: Signed DATE:06/28/20 TIME: 1501 PATIENT: JORGE GOINS UNIT #: [id number] ROOM/BED: [address] : [birth year] AGE: 34 SEX: M ATTEND: Luis M Olmedo MD ADM AUTHOR: Jojo York MD * ALL edits or amendments must be made on the [employer] document * Objective General VS/I O: Vital Signs: Date Time Temp Pulse Resp B/P B/P Pulse O2 O2 F low FiO2 Mean Ox Delivery Rate 06/28 0906 100 Ventilator 30 / 0906 58 100 30 / 0700 97.5 / 0700 Ventilator 30 01/ 0652 59 19 100 01/03 0645 60 13 110/55 75 100 01/03 0630 61 9 124/58 82 100 01/03 0615 60 17 131/61 87 100 01/03 0609 60 13 132/66 93 100 01/03 0600 59 11 130/68 91 100 01/03 0545 59 11 135/65 94 100 01/03 0530 60 14 124/60 82 100 01/03 0515 60 11 128/64 90 100 01/03 0500 60 25 132/55 88 97 01/03 0448 61 99 30 01/03 0445 61 10 144/74 100 100 01/03 0430 61 11 138/71 96 100 01/03 0415 61 10 145/73 99 100 01/03 0400 98.5 01/03 0400 61 10 143/73 100 100 01/03 0345 61 9 144/71 99 100 01/03 0330 61 7 145/72 100 100 01/03 0315 61 15 147/71 101 99 01/03 0300 61 10 145/73 99 100 01/03 0245 61 18 142/73 99 100 01/03 0230 61 8 141/72 99 100 01/03 0216 61 7 130/70 92 100 01/03 0200 61 5 142/74 99 100 01/03 0145 61 5 142/72 98 100 01/03 0130 61 8 138/67 94 100 01/03 0115 61 6 137/68 94 100 01/03 0100 61 4 137/68 96 100 01/03 0045 61 7 126/65 88 99 01/03 0030 61 5 137/67 94 99 01/03 0025 61 99 30 01/03 0015 61 5 131/67 91 99 01/03 0000 98.5 01/03 0000 61 4 132/67 92 99 01/02 2345 61 2 131/71 93 99 01/02 2330 61 6 135/68 93 99 01/02 2315 62 6 133/67 92 100 01/02 2300 62 9 136/66 93 99 01/02 2245 62 6 129/68 91 99 01/02 2230 62 12 135/66 92 100 01/02 2215 63 31 130/66 91 100 01/02 2200 63 4 138/72 96 100 01/02 2145 63 2 139/73 99 100 01/02 2130 63 0 145/75 102 100 01/02 6 100 Ventilator 30 01/02 2125 63 100 30 01/02 2114 62 9 140/78 101 100 01/02 2099 62 11 142/74 100 100 01/02 2044 62 11 142/76 100 100 01/02 2029 62 15 142/70 98 100 01/02 2014 62 12 140/71 97 100 01/02 1999 97.8 01/02 1999 62 13 140/73 98 100 01/02 1945 62 9 141/77 101 100 01/02 1930 63 6 140/73 100 100 01/02 1915 63 12 134/69 94 100 01/02 1905 Ventilator 30 01/02 1900 64 13 138/76 99 100 01/02 1845 66 29 132/73 97 99 01/02 1830 66 22 120/63 85 100 01/02 1815 65 17 144/67 96 100 01/02 1800 65 10 141/63 91 99 01/02 1745 65 7 148/66 95 99 01/02 1730 66 10 146/67 96 99 01/02 1715 66 8 145/67 97 99 01/02 1700 66 6 144/65 94 99 01/02 1645 66 4 141/65 94 99 01/02 1630 66 4 147/68 98 99 01/02 1615 66 4 146/69 99 99 01/02 1600 98.7 01/02 1600 67 6 144/66 95 100 01/02 1545 67 0 143/65 94 100 01/02 1530 67 9 147/67 97 100 01/02 1515 67 5 148/70 100 100 01/02 1508 68 100 30 24 hour I O ending at 0700: 06/28 0700 01/02 1900 Intake Total 4148.00 2774.00 Output Total 850 2600 Balance 3298.00 174.00 Intake, IV 3298.00 2774.00 Intake, Tube 600 Feeding Intake, Tube 250 Irrigant Number 1 Bowel Movements Output, Urine 850 2600 Medications Active Meds + DC'd Last 24 Hrs Hydralazine HCl 100 MG Q8HR PO Labetalol HCl 400 MG Q8HR PO Furosemide 100 MG Q20H IV Sodium Chloride 90 ML Isosorbide Mononitrate 30 MG BID PO Magnesium 100 ML ASDIR PRN IV Magnesium Sulfate 1 EACH ASDIR PRN IV (DC) Magnesium Sulfate 50 ML ASDIR PRN IV Magnesium Sulfate 100 ML ASDIR PRN IV Labetalol HCl 300 MG Q8HR PO (DC) Clonidine HCl 0.2 MG Q7D TRANSDERM (CKD) Amlodipine Besylate 5 MG Q12HR PO Hydralazine HCl 50 MG Q8HR PO (DC) Aspirin 81 MG DAILY FEED-TUBE Atorvastatin Calcium 40 MG DAILY FEED-TUBE Albuterol/Ipratropium 3 ML RTQ6H INH Furosemide 20 MG BID@0700,1500 IV (DC) Perflutren Lipid Microsphere DIRECTED ONCE PRN IV Sodium Chloride DIRECTED ONCE PRN IV Sodium Chloride 5 ML ONCE PRN IV Nicardipine HCl 250 ML TITRATE IV Dexmedetomidine HCl 400 MCG TITRATE IV Sodium Chloride 96 ML Dextrose/Water 25 ML ASDIR PRN IV Glucagon 1 MG ASDIR PRN IM Insulin Human Lispro LOW DOSE SCALE ASDIR SUBQ Sterile Water 1 ML ASDIR PRN IM Propofol 100 ML TITRATE IV (CKD) Midazolam HCl 100 ML TITRATE IV (CKD) Epinephrine 8 MG TITRATE IV (CKD) Sodium Chloride 242 ML Norepinephrine Bitartrate 16 MG TITRATE IV Sodium Chloride 234 ML Perflutren Lipid Microsphere DIRECTED ONCE PRN IV Sodium Chloride DIRECTED ONCE PRN IV Sodium Chloride 5 ML ONCE PRN IV Fentanyl Citrate 50 ML TITRATE IV (CKD) Famotidine 20 MG DAILY PO Heparin Sodium (Porcine) 5,000 UNIT Q12HR SUBQ Esmolol HCl 250 ML TITRATE IV (CKD) Physical Exam General appearance: no acute distress Head/eyes: normal conjunctiva/sclera Neck: no JVD Respiratory: symmetric expansion Genitourinary: zuñiga, urine Musculoskeletal: normal inspection Neuro/RADIOTELEGRAPHIST: SEDATED Hemodialysis access: Type: vascath Psychiatry: unable to evaluate Results Findings/Data: Laboratory Tests 06/28 518 Blood Gas Puncture Site R Radial ABG pH (7.35 - 7.45 pH units) 7.43 ABG pCO2 (35 - 48 mmHg) 34.8 L ABG pO2 (83 - 108 mmHg) 102.9 ABG PO2/FiO2 Ratio (mm/Hg) 343.00 ABG HCO3 (21 - 28 mmol/L) 23.2 ABG Total CO2 (22 - 29 mmol/L) 23.2 ABG O2 Sat Calc/Denise (94 - 98 %) 98.2 H ABG Base Excess (-2 - 3 mmol/L) -0.7 Emmanuel Test Positive Sodium (138 - 146 mmol/L) 143 Potassium (3.5 - 4.5 mmol/L) 3.8 Ionized Calcium (1.15 - 1.33 MMOL/L) 1.17 Respiration Rate (12 - 20 /MIN) 12 O2 Delivery Device Adult Vent Vent Mode SIMV/PS FiO2 (%) 30 Pressure Support (cmH2O) 10 Instrument (Specimen Descript) Arterial Laboratory Tests 06/28 06/28 06/28 06/27 1219 0519 0221 1810 Chemistry Sodium (137 - 145 mmol/L) 141 Potassium (3.4 - 5.0 mmol/L) 3.9 Chloride (98 - 107 mmol/L) 109 H Carbon Dioxide (22 - 30 mmol/L) 25 BUN (9 - 20 mg/dL) 33 H Creatinine (0.7 - 1.3 mg/dL) 1.0 Glomerular Filtr Rate (>60) 111 Glucose (74 - 106 mg/dL) 97 POC Glucose (74 - 100 mg/dL) 93 102 Calcium (8.4 - 10.2 mg/dL) 7.8 L Magnesium (1.6 - 2.3 mg/dL) 2.0 1.8 NT-Pro-B Natriuret Pep (0 - 299 pg/mL) 972 H Laboratory Tests 06/28 0221 Hematology WBC (5.0 - 12.0 x10 3/uL) 6.1 RBC (4.70 - 6.10 x10 6/uL) 3.25 L Hgb (14.0 - 18.0 g/dL) 9.3 L Hct (37.0 - 49.0 %) 30.6 L MCV (80 - 94 fL) 94 MCH (27 - 31 pg) 28.6 MCHC (33 - 37 g/dL) 30.4 L RDW (11.5 - 15.5 %) 16.3 H Plt Count (130 - 400 x10 3/uL) 201 MPV (9.4 - 16.4 fL) 11.6 Neut % (Auto) (43 - 65 %) 80.7 H Lymph % (Auto) (20.5 - 45.5 %) 8.0 L Citrus % (Auto) (5.5 - 11.7 %) 8.3 Eos % (Auto) (0.9 - 2.9 %) 2.0 Baso % (Auto) (0.2 - 1.0 %) 0.2 Neut # (Auto) (2.2 - 4.8 x10 3/uL) 4.95 H Lymph # (Auto) (1.3 - 2.9 x10 3/uL) 0.49 L Citrus # (Auto) (0.3 - 0.8 x10 3/uL) 0.51 Eos # (Auto) (0.0 - 0.2 x10 3/uL) 0.12 Baso # (Auto) (0.0 - 0.1 x10 3/uL) 0.01 Immature Gran % (0.0 - 2.0 %) 0.8 Nucleated RBC % (0 - 1.0 %) 0.0 Radiology data: Recent Impressions: RADIOLOGY - XR CHEST 1 V 06/28 0445 Report Impression - Status: SIGNED Entered: 06/28/2020726 IMPRESSION: 1. Right basilar atelectasis. 2. All lines and tube are in satisfactory positi oning. Impression By: Frederick Higgins M.D. Diagnosis, Assessment Plan Free Text A P: JENNIFER hypotension AAA lactic acidosis severe metabolic acidosis Cr stable/improved; UOP good continue twice daily lasix Acidosis resolved will monitor at 1227 RPT #:[id number] END OF REPORT 2020-06-28 13:19:00-00:[address] [facility] ([facility]) Critical Care Progress Note REPORT#:[id number] REPORT STATUS: Signed DATE:06/28/20 TIME: 1319 PATIENT: JORGE GOINS UNIT #: [id number] ROOM/BED: [address] : [birth year] AGE: 34 SEX: M ATTEND: Luis M Olmedo MD ADM AUTHOR: Papi England MD * ALL edits or amendments must be made on the [employer]/computer document * Subjective Chief Complaint: encephlaopthic still uncontrolled bp Objective General VS/I O Last Documented: Result Date Time Pulse Ox 100 06/28 09 FiO2 30 06/28 09 O2 Delivery Ventilator 06/28 905 Pulse 58 06/28 09 Temp 36.4 06/28 0700 Resp 19 06/28 0652 B/P 110/55 06/28 0645 B/P Mean 75 06/28 644 O2 Flow Rate 0 06/26 0936 24 hour I O ending at 0700: 06/28 0700 06/27 1900 Intake Total 4148.00 2774.00 Output Total 850 2600 Balance 3298.00 174.00 Intake, IV 3298.00 2774.00 Intake, Tube 600 Feeding Intake, Tube 250 Irrigant Number 1 Bowel Movements Output, Urine 850 2600 PATIENT WEIGHT: Weight (lb): 232 Weight (oz): 2.35 Weight (kg): 105.300 Medications: Active Meds + DC'd Last 24 Hrs Hydralazine HCl 100 MG Q8HR PO Labetalol HCl 400 MG Q8HR PO Furosemide 100 MG Q20H IV Sodium Chloride 90 ML Isosorbide Mononitrate 30 MG BID PO Magnesium 100 ML ASDIR PRN IV Magnesium Sulfate 1 EACH ASDIR PRN IV (DC) Magnesium Sulfate 50 ML ASDIR PRN IV Magnesium Sulfate 100 ML ASDIR PRN IV Labetalol HCl 300 MG Q8HR PO (DC) Clonidine HCl 0.2 MG Q7D TRANSDERM (CKD) Amlodipine Besylate 5 MG Q12HR PO Hydralazine HCl 50 MG Q8HR PO (DC) Aspirin 81 MG DAILY FEED-TUBE Atorvastatin Calcium 40 MG DAILY FEED-TUBE Albuterol/Ipratropium 3 ML RTQ6H INH Furosemide 20 MG BID@0700,1500 IV (DC) Perflutren Lipid Microsphere DIRECTED ONCE PRN IV Sodium Chloride DIRECTED ONCE PRN IV Sodium Chloride 5 ML ONCE PRN IV Nicardipine HCl 250 ML TITRATE IV Dexmedetomidine HCl 400 MCG TITRATE IV Sodium Chloride 96 ML Dextrose/Water 25 ML ASDIR PRN IV Glucagon 1 MG ASDIR PRN IM Insulin Human Lispro LOW DOSE SCALE ASDIR SUBQ Sterile Water 1 ML ASDIR PRN IM Propofol 100 ML TITRATE IV (CKD) Midazolam HCl 100 ML TITRATE IV (CKD) Epinephrine 8 MG TITRATE IV (CKD) Sodium Chloride 242 ML Norepinephrine Bitartrate 16 MG TITRATE IV Sodium Chloride 234 ML Perflutren Lipid Microsphere DIRECTED ONCE PRN IV Sodium Chloride DIRECTED ONCE PRN IV Sodium Chloride 5 ML ONCE PRN IV Fentanyl Citrate 50 ML TITRATE IV (CKD) Famotidine 20 MG DAILY PO Heparin Sodium (Porcine) 5,000 UNIT Q12HR SUBQ Esmolol HCl 250 ML TITRATE IV (CKD) Physical Exam General appearance: altered mental status Head/Eyes: atraumatic, normocephalic Cardiovascular: normal heart sounds, normal S1 S 2, normal rate and rhythm Respiratory/Chest: aerating well, clear to auscu ltation Abdomen: soft, non-tender, normal bowel sounds, no distention Extremities: no edema Neuro/RADIOTELEGRAPHIST: disoriented Results Findings/Data: Laboratory Tests 06/28/20 0221: [Embedded Image Not Available] Laboratory Tests 06/28 05 Blood Gas Puncture Site R Radial ABG pH (7.35 - 7.45 pH units) 7.43 ABG pCO2 (35 - 48 mmHg) 34.8 L ABG pO2 (83 - 108 mmHg) 102.9 ABG PO2/FiO2 Ratio (mm/Hg) 343.00 ABG HCO3 (21 - 28 mmol/L) 23.2 ABG Total CO2 (22 - 29 mmol/L) 23.2 ABG O2 Sat Calc/Denise (94 - 98 %) 98.2 H ABG Base Excess (-2 - 3 mmol/L) -0.7 Emmanuel Test Positive Sodium (138 - 146 mmol/L) 143 Potassium (3.5 - 4.5 mmol/L) 3.8 Ionized Calcium (1.15 - 1.33 MMOL/L) 1.17 Respiration Rate (12 - 20 /MIN) 12 O2 Delivery Device Adult Vent Vent Mode SIMV/PS FiO2 (%) 30 Pressure Support (cmH2O) 10 Instrument (Specimen Descript) Arterial Laboratory Tests 06/28 06/28 06/28 06/27 1219 0519 0221 1810 Chemistry Sodium (137 - 145 mmol/L) 141 Potassium (3.4 - 5.0 mmol/L) 3.9 Chloride (98 - 107 mmol/L) 109 H Carbon Dioxide (22 - 30 mmol/L) 25 BUN (9 - 20 mg/dL) 33 H Creatinine (0.7 - 1.3 mg/dL) 1.0 Glomerular Filtr Rate (>60) 111 Glucose (74 - 106 mg/dL) 97 POC Glucose (74 - 100 mg/dL) 93 102 Calcium (8.4 - 10.2 mg/dL) 7.8 L Magnesium (1.6 - 2.3 mg/dL) 2.0 1.8 NT-Pro-B Natriuret Pep (0 - 299 pg/mL) 972 H Laboratory Tests 06/28 0221 Hematology WBC (5.0 - 12.0 x10 3/uL) 6.1 RBC (4.70 - 6.10 x10 6/uL) 3.25 L Hgb (14.0 - 18.0 g/dL) 9.3 L Hct (37.0 - 49.0 %) 30.6 L MCV (80 - 94 fL) 94 MCH (27 - 31 pg) 28.6 MCHC (33 - 37 g/dL) 30.4 L RDW (11.5 - 15.5 %) 16.3 H Plt Count (130 - 400 x10 3/uL) 201 MPV (9.4 - 16.4 fL) 11.6 Neut % (Auto) (43 - 65 %) 80.7 H Lymph % (Auto) (20.5 - 45.5 %) 8.0 L Citrus % (Auto) (5.5 - 11.7 %) 8.3 Eos % (Auto) (0.9 - 2.9 %) 2.0 Baso % (Auto) (0.2 - 1.0 %) 0.2 Neut # (Auto) (2.2 - 4.8 x10 3/uL) 4.95 H Lymph # (Auto) (1.3 - 2.9 x10 3/uL) 0.49 L Citrus # (Auto) (0.3 - 0.8 x10 3/uL) 0.51 Eos # (Auto) (0.0 - 0.2 x10 3/uL) 0.12 Baso # (Auto) (0.0 - 0.1 x10 3/uL) 0.01 Immature Gran % (0.0 - 2.0 %) 0.8 Nucleated RBC % (0 - 1.0 %) 0.0 Radiology data Recent Impressions: RADIOLOGY - XR CHEST 1 V 06/28 0445 Report Impression - Status: SIGNED Entered: 06/28/2020726 IMPRESSION: 1. Right basilar atelectasis. 2. All lines and tube are in satisfactory positi oning. Impression By: Frederick Higgins M.D. Diagnosis, Assessment Plan Free text A P: 34 year old male with history of aortic dissecti on s/p EVAR came in for hypertensive urgency A/P: Neuro -intubated -MRI multiple ischemic cva #AMS -MRI multifocal cva -on versed -EEG pending -neuro following Pulm -s/p intubation following cardiac arrest -on FiO2 28% -ABG this AM 7.47/29.3/118.3/21.1 -mental status not optimal for extubation Airway protection is an issue will proceed with trach CV #s/p Cardiac Arrest - PEA hypotensive. ROSC achieved after 9 minutes - likely from cardiogenic shock EF 30-34% - off all pressors - Aortic dissection ruled out from CTA chest , a bdomen and pelvis #hx of EVAR for aortic dissection and h/o endole ak in the past - per vascular surgery -uncontrolled hypertension wean esmolol wean cardene ECHO WMA check with cardiology about need for heart cath #HTN -restart coreg -on cardene -cardio following -monitor #Hypertension norvasc hydralazine wean esmolol wean cardene GI on tube feeding Renal #JENNIFER stable started on lasix drip my cardiology gi ppx: pepcid dvt ppx: heparin Diet: tube feeds condition critical prognosis guarded CC time more than 45 minutes Reviewed chart/images Excludes all procedure time at 1322 RPT #:[id number] END OF REPORT 2020-06-28 10:54:00-00:[address] [facility] ([facility]) Cardiology Progress Note REPORT#:[id number] REPORT STATUS: Signed DATE:06/28/20 TIME: 1054 PATIENT: JORGE GOINS UNIT #: [id number] ROOM/BED: [address] : [birth year] AGE: 34 SEX: M ATTEND: Luis M Olmedo MD ADM AUTHOR: Abhi Ortiz DO * ALL edits or amendments must be made on the [employer]/computer document * Subjective Free Text Subj Notes Free Text Subj Notes: No change in bp despite changes in meds. Remains intubated. Objective General VS/I O: 24 hour I O ending at 0700: 06/28 0700 / 1900 Intake Total 4148.00 2774.00 Output Total 850 2600 Balance 3298.00 174.00 Intake, IV 3298.00 2774.00 Intake, Tube 600 Feeding Intake, Tube 250 Irrigant Number 1 Bowel Movements Output, Urine 850 2600 Vital Signs: Date Time Temp Pulse Resp B/P B/P Pulse O2 O2 F low FiO2 Mean Ox Delivery Rate 06/28 0906 100 Ventilator 30 01/03 0906 58 100 30 01/03 0700 97.5 /03 0700 Ventilator 30 01/03 0652 59 19 100 01/03 0645 60 13 110/55 75 100 01/03 0630 61 9 124/58 82 100 01/03 0615 60 17 131/61 87 100 01/03 0609 60 13 132/66 93 100 01/03 0600 59 11 130/68 91 100 01/03 0545 59 11 135/65 94 100 01/03 0530 60 14 124/60 82 100 01/03 0515 60 11 128/64 90 100 01/03 0500 60 25 132/55 88 97 01/03 0448 61 99 30 01/03 0445 61 10 144/74 100 100 01/03 0430 61 11 138/71 96 100 01/03 0415 61 10 145/73 99 100 01/03 0400 98.5 01/03 0400 61 10 143/73 100 100 01/03 0345 61 9 144/71 99 100 01/03 0330 61 7 145/72 100 100 01/03 0315 61 15 147/71 101 99 01/03 0300 61 10 145/73 99 100 01/03 0245 61 18 142/73 99 100 01/03 0230 61 8 141/72 99 100 01/03 0216 61 7 130/70 92 100 01/03 0200 61 5 142/74 99 100 01/03 0145 61 5 142/72 98 100 01/03 0130 61 8 138/67 94 100 01/03 0115 61 6 137/68 94 100 01/03 0100 61 4 137/68 96 100 01/03 0045 61 7 126/65 88 99 01/03 0030 61 5 137/67 94 99 01/03 0025 61 99 30 01/03 0015 61 5 131/67 91 99 01/03 0000 98.5 01/03 0000 61 4 132/67 92 99 01/02 2345 61 2 131/71 93 99 01/02 2330 61 6 135/68 93 99 01/02 2315 62 6 133/67 92 100 01/02 2300 62 9 136/66 93 99 01/02 2245 62 6 129/68 91 99 01/02 2230 62 12 135/66 92 100 01/02 2215 63 31 130/66 91 100 01/02 2200 63 4 138/72 96 100 01/02 2145 63 2 139/73 99 100 01/02 2130 63 0 145/75 102 100 01/02 2126 100 Ventilator 30 01/02 2126 63 100 30 01/02 2115 62 9 140/78 101 100 01/02 2100 62 11 142/74 100 100 01/02 5 62 11 142/76 100 100 01/02 2029 62 15 142/70 98 100 01/02 2014 62 12 140/71 97 100 01/02 1999 97.8 01/02 1999 62 13 140/73 98 100 01/02 1945 62 9 141/77 101 100 01/02 1930 63 6 140/73 100 100 01/02 1915 63 12 134/69 94 100 01/02 1905 Ventilator 30 01/02 1900 64 13 138/76 99 100 01/02 1845 66 29 132/73 97 99 01/02 1830 66 22 120/63 85 100 01/02 1815 65 17 144/67 96 100 01/02 1800 65 10 141/63 91 99 01/02 1745 65 7 148/66 95 99 01/02 1730 66 10 146/67 96 99 01/02 1715 66 8 145/67 97 99 01/02 1700 66 6 144/65 94 99 01/02 1645 66 4 141/65 94 99 01/02 1630 66 4 147/68 98 99 01/02 1615 66 4 146/69 99 99 01/02 1600 98.7 01/02 1600 67 6 144/66 95 100 01/02 1545 67 0 143/65 94 100 01/02 1530 67 9 147/67 97 100 01/02 1515 67 5 148/70 100 100 01/02 1508 68 100 30 01/02 1500 67 11 139/65 93 100 01/02 1445 67 10 148/68 98 100 01/02 1430 67 6 148/69 99 100 01/02 1415 67 3 149/70 100 100 01/02 1400 68 8 147/72 100 100 01/02 1345 67 13 151/72 102 100 01/02 1330 68 6 145/69 99 100 01/02 1315 69 26 149/70 101 100 01/02 1300 69 9 145/70 100 100 01/02 1245 69 9 145/72 100 100 01/02 1230 71 26 143/69 99 100 01/02 1215 71 32 139/69 95 100 01/02 1203 71 21 134/69 92 100 01/02 1200 98.2 01/02 1200 70 33 100 01/02 1145 70 31 147/66 95 100 01/02 1130 70 8 150/70 100 100 01/02 1115 70 10 150/69 99 100 01/02 1100 70 12 146/66 96 100 PATIENT WEIGHT: Weight (lb): 232 Weight (oz): 2.35 Weight (kg): 105.300 Medications: Active Meds + DC'd Last 24 Hrs Hydralazine HCl 100 MG Q8HR PO Labetalol HCl 400 MG Q8HR PO Isosorbide Mononitrate 30 MG BID PO Magnesium 100 ML ASDIR PRN IV Magnesium Sulfate 1 EACH ASDIR PRN IV (DC) Magnesium Sulfate 50 ML ASDIR PRN IV Magnesium Sulfate 100 ML ASDIR PRN IV Labetalol HCl 300 MG Q8HR PO (DCr) Clonidine HCl 0.2 MG Q7D TRANSDERM (CKD) Amlodipine Besylate 5 MG Q12HR PO Hydralazine HCl 50 MG Q8HR PO (DCr) Aspirin 81 MG DAILY FEED-TUBE Atorvastatin Calcium 40 MG DAILY FEED-TUBE Albuterol/Ipratropium 3 ML RTQ6H INH Furosemide 20 MG BID@0700,1500 IV Carvedilol 25 MG Q8H PO (DC) Perflutren Lipid Microsphere DIRECTED ONCE PRN IV Sodium Chloride DIRECTED ONCE PRN IV Sodium Chloride 5 ML ONCE PRN IV Nicardipine HCl 250 ML TITRATE IV Dexmedetomidine HCl 400 MCG TITRATE IV Sodium Chloride 96 ML Dextrose/Water 25 ML ASDIR PRN IV Glucagon 1 MG ASDIR PRN IM Insulin Human Lispro LOW DOSE SCALE ASDIR SUBQ Sterile Water 1 ML ASDIR PRN IM Propofol 100 ML TITRATE IV (CKD) Midazolam HCl 100 ML TITRATE IV (CKD) Epinephrine 8 MG TITRATE IV (CKD) Sodium Chloride 242 ML Norepinephrine Bitartrate 16 MG TITRATE IV Sodium Chloride 234 ML Perflutren Lipid Microsphere DIRECTED ONCE PRN IV Sodium Chloride DIRECTED ONCE PRN IV Sodium Chloride 5 ML ONCE PRN IV Fentanyl Citrate 50 ML TITRATE IV (CKD) Famotidine 20 MG DAILY PO Heparin Sodium (Porcine) 5,000 UNIT Q12HR SUBQ Esmolol HCl 250 ML TITRATE IV (CKD) Physical Exam General appearance: respiratory support Head/Eyes: atraumatic, normocephalic, PERRL ENT: moist mucosal membranes, normal nose Neck: non-tender, supple/no meningismus Cardiovascular: CV assessment: regular rate and rhythm, no murm ur Respiratory: no distress, coarse breathsounds, m echanically ventialted Abdomen: soft, non-tender Upper extremity: UE assessment: normal capillary refill, normal temperature Lower extremity: LE assessment: normal capillary refill, normal temperature, no edema Musculoskeletal: normal inspection Neuro/RADIOTELEGRAPHIST: intubated and sedated, withdraws to p ainful stimuli Diagnosis, Assessment Plan Free Text DxA P Notes Free Text DxA P Notes: 1. Hypertensive urgency/emergency - presented with severely elevated BP requiring 2 IV infusions, subsequently suffered PEA cardiac arrest - BP very high - - hydralazine increased to 100 - increase labetalol - clonidine patch added - norvasc added - added ismn 30mg xl bid - wean down cardene and esmlol as much as we ca n - goal bp 120-140/60-80 2. Cardiac arrest - PEA in etiology, pt became hypothermic and sub sequently bradycardic 3. Type B aortic dissection s/p EVAR - has residual descending aortic dissect ion extending into iliacs. No evidence of rupture on CTA. Reviewed by vascular surgery - appreciate assitance - needs aggressive BP Control. 4. Acute on chronic systolic heart failure - likely hypertensive heart disease due to long standing elevated BP - warm and well perfused on examination - need low dose lasix to see if this helps, he i s edematous - check BNP - may need lasix drip 5. Shock - resolved - warm and well perfused on examination 6. JENNIFER on CKD stage 3 - likely secondary to fluctuation in BP - nephrology following, appreciate recommendatio ns - monitor UOP 7. Acute hypoxic respiratory failure - wean from ventilator as tolerated - per ICU te am Will follow. Please call if questions. [facility]iology Electronically Signed by Abhi Ortiz DO on 06/28 at 1056 RPT #:[id number] END OF REPORT 2020-06-28 08:33:00-00:00 [facility] Critical Care Progress Note REPORT#:[id number] REPORT STATUS: Signed DATE:06/28/20 TIME: 832 PATIENT: JORGE GOINS UNIT #: [id number] ROOM/BED: [address] : [birth year] AGE: 34 SEX: M ATTEND: Luis M Olmedo MD ADM AUTHOR: Papi England MD * ALL edits or amendments must be made on the el [employer]/computer document * Subjective Chief Complaint: encephlaopthic still Comments: Progress note for . Objective General VS/I O Last Documented: Result Date Time Temp 36.4 06/28 0700 FiO2 30 06/28 0700 O2 Delivery Ventilator 06/28 07 Pulse Ox 100 06/28 0652 Pulse 59 06/28 0652 Resp 19 06/28 0652 B/P 110/55 06/28 0645 B/P Mean 75 06/28 0645 O2 Flow Rate 0 06/26 0936 24 hour I O ending at 0700: 06/28 0700 06/27 1900 Intake Total 4148.00 2774.00 Output Total 850 2600 Balance 3298.00 174.00 Intake, IV 3298.00 2774.00 Intake, Tube 600 Feeding Intake, Tube 250 Irrigant Number 1 Bowel Movements Output, Urine 850 2600 PATIENT WEIGHT: Weight (lb): 232 Weight (oz): 2.35 Weight (kg): 105.300 Medications: Active Meds + DC'd Last 24 Hrs Magnesium 100 ML ASDIR PRN IV Magnesium Sulfate 1 EACH ASDIR PRN IV (DC) Magnesium Sulfate 50 ML ASDIR PRN IV Magnesium Sulfate 100 ML ASDIR PRN IV Labetalol HCl 300 MG Q8HR PO Clonidine HCl 0.2 MG Q7D TRANSDERM (CKD) Amlodipine Besylate 5 MG Q12HR PO Hydralazine HCl 50 MG Q8HR PO Aspirin 81 MG DAILY FEED-TUBE Atorvastatin Calcium 40 MG DAILY FEED-TUBE Albuterol/Ipratropium 3 ML RTQ6H INH Furosemide 20 MG BID@0700,1500 IV Carvedilol 25 MG Q8H PO (DC) Perflutren Lipid Microsphere DIRECTED ONCE PRN IV Sodium Chloride DIRECTED ONCE PRN IV Sodium Chloride 5 ML ONCE PRN IV Nicardipine HCl 250 ML TITRATE IV Dexmedetomidine HCl 400 MCG TITRATE IV Sodium Chloride 96 ML Dextrose/Water 25 ML ASDIR PRN IV Glucagon 1 MG ASDIR PRN IM Insulin Human Lispro LOW DOSE SCALE ASDIR SUBQ Sterile Water 1 ML ASDIR PRN IM Propofol 100 ML TITRATE IV (CKD) Midazolam HCl 100 ML TITRATE IV (CKD) Epinephrine 8 MG TITRATE IV (CKD) Sodium Chloride 242 ML Norepinephrine Bitartrate 16 MG TITRATE IV Sodium Chloride 234 ML Perflutren Lipid Microsphere DIRECTED ONCE PRN IV Sodium Chloride DIRECTED ONCE PRN IV Sodium Chloride 5 ML ONCE PRN IV Fentanyl Citrate 50 ML TITRATE IV (CKD) Famotidine 20 MG DAILY PO Heparin Sodium (Porcine) 5,000 UNIT Q12HR SUBQ Esmolol HCl 250 ML TITRATE IV (CKD) Physical Exam General appearance: altered mental status Head/Eyes: atraumatic, normocephalic Cardiovascular: normal heart sounds, normal S1 S 2, normal rate and rhythm Respiratory/Chest: aerating well, clear to auscu ltation Abdomen: soft, non-tender, normal bowel sounds, no distention Extremities: no edema Neuro/RADIOTELEGRAPHIST: disoriented Results Findings/Data: Laboratory Tests 06/28/20 0221: [Embedded Image Not Available] Laboratory Tests 06/28 518 Blood Gas Puncture Site R Radial ABG pH (7.35 - 7.45 pH units) 7.43 ABG pCO2 (35 - 48 mmHg) 34.8 L ABG pO2 (83 - 108 mmHg) 102.9 ABG PO2/FiO2 Ratio (mm/Hg) 343.00 ABG HCO3 (21 - 28 mmol/L) 23.2 ABG Total CO2 (22 - 29 mmol/L) 23.2 ABG O2 Sat Calc/Denise (94 - 98 %) 98.2 H ABG Base Excess (-2 - 3 mmol/L) -0.7 Emmanuel Test Positive Sodium (138 - 146 mmol/L) 143 Potassium (3.5 - 4.5 mmol/L) 3.8 Ionized Calcium (1.15 - 1.33 MMOL/L) 1.17 Respiration Rate (12 - 20 /MIN) 12 O2 Delivery Device Adult Vent Vent Mode SIMV/PS FiO2 (%) 30 Pressure Support (cmH2O) 10 Instrument (Specimen Descript) Arterial Laboratory Tests 06/28 1810 Chemistry Sodium (137 - 145 mmol/L) 141 Potassium (3.4 - 5.0 mmol/L) 3.9 Chloride (98 - 107 mmol/L) 109 H Carbon Dioxide (22 - 30 mmol/L) 25 BUN (9 - 20 mg/dL) 33 H Creatinine (0.7 - 1.3 mg/dL) 1.0 Glomerular Filtr Rate (>60) 111 Glucose (74 - 106 mg/dL) 97 POC Glucose (74 - 100 mg/dL) 93 102 Calcium (8.4 - 10.2 mg/dL) 7.8 L Magnesium (1.6 - 2.3 mg/dL) 1.8 Laboratory Tests 06/28 220 Hematology WBC (5.0 - 12.0 x10 3/uL) 6.1 RBC (4.70 - 6.10 x10 6/uL) 3.25 L Hgb (14.0 - 18.0 g/dL) 9.3 L Hct (37.0 - 49.0 %) 30.6 L MCV (80 - 94 fL) 94 MCH (27 - 31 pg) 28.6 MCHC (33 - 37 g/dL) 30.4 L RDW (11.5 - 15.5 %) 16.3 H Plt Count (130 - 400 x10 3/uL) 201 MPV (9.4 - 16.4 fL) 11.6 Neut % (Auto) (43 - 65 %) 80.7 H Lymph % (Auto) (20.5 - 45.5 %) 8.0 L Citrus % (Auto) (5.5 - 11.7 %) 8.3 Eos % (Auto) (0.9 - 2.9 %) 2.0 Baso % (Auto) (0.2 - 1.0 %) 0.2 Neut # (Auto) (2.2 - 4.8 x10 3/uL) 4.95 H Lymph # (Auto) (1.3 - 2.9 x10 3/uL) 0.49 L Citrus # (Auto) (0.3 - 0.8 x10 3/uL) 0.51 Eos # (Auto) (0.0 - 0.2 x10 3/uL) 0.12 Baso # (Auto) (0.0 - 0.1 x10 3/uL) 0.01 Immature Gran % (0.0 - 2.0 %) 0.8 Nucleated RBC % (0 - 1.0 %) 0.0 Radiology data Recent Impressions: RADIOLOGY - XR CHEST 1 V 06/28 0727 Report Impression - Status: SIGNED Entered: 06/28/2020 9391 IMPRESSION: 1. Right basilar atelectasis. 2. All lines and tube are in satisfactory positi oning. Impression By: Frederick Higgins M.D. Diagnosis, Assessment Plan Free text A P: 34 year old male with history of aortic dissecti on s/p EVAR came in for hypertensive urgency A/P: Neuro -intubated -on versed #AMS likely metabolic -MRI multifocal cva -on versed -EEG pending -neuro following Pulm -s/p intubation following cardiac arrest -on FiO2 28% -ABG this AM 7.47/29.3/118.3/21.1 -mental status not optimal for extubation Airway protection is an issue will proceed with trach CV #s/p Cardiac Arrest - PEA hypotensive. ROSC achieved after 9 minutes - likely from cardiogenic shock EF 30-34% - off all pressors - Aortic dissection ruled out from CTA chest , a bdomen and pelvis #hx of EVAR for aortic dissection and h/o endole ak in the past - seen by Dr. Ramires's group last admission. Dr. Wallace larsen consulted -Cardio consulted -CTA chest ECHO WMA check with cardiology about need for heart cath #HTN -restart coreg -on cardene -cardio following -monitor #Hypertension start norvasc hydralazine wean esmolol wean cardene GI -dilated fluid filled loops of small bowel seen on CT -surgery consulted - no surgical intervention -lactic downtrending -monitor Renal #JENNIFER -Cr 3.3 -making urine -mena cath in place, may need HD -s/p cardiac arrest -CTA showed inflammation changes surrounding kid neys -nephro following -monitor gi ppx: pepcid dvt ppx: heparin Diet: tube feeds condition critical prognosis guarded at 0835 RPT #:[id number] END OF REPORT 2020-06-27 12:46:00-00:00 [facility] Neurology Progress Note REPORT#:[id number] REPORT STATUS: Signed DATE:06/27/20 TIME: 1246 PATIENT: JORGE GOINS UNIT #: [id number] ROOM/BED: [address] : [birth year] AGE: 35 SEX: M ATTEND: Raphael Davila MD ADM AUTHOR: Jessica Parson MD * ALL edits or amendments must be made on the el [employer]/computer document * Subjective Comments: MRI completed ands shows small strokes No acute overnight neurological events Review of Systems Unable to obtain due to: patient mental status Objective General VS: Last Documented: Result Date Time Pulse Ox 100 06/27 924 FiO2 30 06/27 924 O2 Delivery Ventilator 06/27 924 Pulse 70 06/27 0925 Temp 37.1 06/27 0705 Resp 6 06/27 0609 B/P 143/77 06/27 0600 B/P Mean 102 06/27 06 O2 Flow Rate 0 06/26 0936 PATIENT WEIGHT: Weight (lb): 232 Weight (oz): 2.35 Weight (kg): 105.300 exam intubated, sedated head is normal cephalic atraumatic cvs- regular rate respiratory support neurologic- unresponseive but on sedation eyes closed pupils equal round and reactive to light no gaze deviation face symmetric no spontaneous or purposeful movements Medications Current Home Medications ALBUTEROL (PROAIR HFA 90 MCG/ACT 8.5 GM) 2 PUFF INH RTQ6H PRN PRN SOB ASPIRIN EC (ECOTRIN) 81 MG PO DAILY CARVEDILOL (COREG) 25 MG PO BID MEALS ACETAMINOPHEN/CODEINE (TYLENOL WITH CODE INE #4 300/60 MG) 1 TAB PO Q6H PRN PRN PAIN ATORVASTATIN (LIPITOR) 20 MG PO BEDTIME LOSARTAN (COZAAR) 100 MG PO DAILY NIFEdipine CC (ADALAT CC) 90 MG PO Q12HR HYDROCHLOROTHIAZIDE (HYDRODIURIL) 25 MG PO DAILY Active Meds + DC'd Last 24 Hrs Labetalol HCl 300 MG Q8HR PO Clonidine HCl 0.2 MG Q7D TRANSDERM (CKD) Amlodipine Besylate 5 MG Q12HR PO Hydralazine HCl 50 MG Q8HR PO Aspirin 81 MG DAILY FEED-TUBE Atorvastatin Calcium 40 MG DAILY FEED-TUBE Albuterol/Ipratropium 3 ML RTQ6H INH Furosemide 20 MG BID@0700,1500 IV Carvedilol 25 MG Q8H PO (DC) Perflutren Lipid Microsphere DIRECTED ONCE PRN IV Sodium Chloride DIRECTED ONCE PRN IV Sodium Chloride 5 ML ONCE PRN IV Nicardipine HCl 250 ML TITRATE IV Dexmedetomidine HCl 400 MCG TITRATE IV Sodium Chloride 96 ML Dextrose/Water 25 ML ASDIR PRN IV Glucagon 1 MG ASDIR PRN IM Insulin Human Lispro LOW DOSE SCALE ASDIR SUBQ Sterile Water 1 ML ASDIR PRN IM Propofol 100 ML TITRATE IV (CKD) Midazolam HCl 100 ML TITRATE IV (CKD) Epinephrine 8 MG TITRATE IV (CKD) Sodium Chloride 242 ML Norepinephrine Bitartrate 16 MG TITRATE IV Sodium Chloride 234 ML Perflutren Lipid Microsphere DIRECTED ONCE PRN IV Sodium Chloride DIRECTED ONCE PRN IV Sodium Chloride 5 ML ONCE PRN IV Fentanyl Citrate 50 ML TITRATE IV (CKD) Famotidine 20 MG DAILY PO Heparin Sodium (Porcine) 5,000 UNIT Q12HR SUBQ Esmolol HCl 250 ML TITRATE IV (CKD) Results Radiology Data: MRI 06/26/20 IMPRESSION: Small regions of restricted diffusion within th e left frontal lobe and left occipital lobe, concerning for acute infar cts. Diagnosis, Assessment Plan Free Text A P: Impression 1. Acute encephalopathy - multifactorial - metab olic/hypertensive emergency/ acute stroke 2. Acute ischemic strokes, small, suspect emboli c source 4. hypertensive emergency - still requiring akua rdipine drip and antihypertensives being adjusted 5. acute respiratory failure requiring intubatio n 6. complicated type b aortic dissection, in need of extension TEVAR when stable per vascular surgery Plan blood pressure control continue current care plan asa and statin will need w/u for embolic stroke d/w staff, will follow Electronically Signed by Jessica Parson MD on at 1148 RPT #:[id number] END OF REPORT 2020-06-27 12:35:00-00:00 [facility] Cardiology Progress Note REPORT#:[id number] REPORT STATUS: Signed DATE:06/27/20 TIME: 1235 PATIENT: JORGE GOINS UNIT #: [id number] ROOM/BED: [address] : [birth year] AGE: 34 SEX: M ATTEND: Luis M Olmedo MD ADM AUTHOR: Abhi Ortiz DO * ALL edits or amendments must be made on the el [employer]/computer document * Subjective Free Text Subj Notes Free Text Subj Notes: BP is very high on 2 drips - cardene and esmlol nearly maxed out. INtubated. Objective General VS/I O: 24 hour I O ending at 0700: 06/27 0700 06/26 1900 Intake Total 3433.00 6373.00 Output Total 1150 2200 Balance 2283.00 4173.00 Intake, IV 2733.00 5263.00 Intake, Tube 550 950 Feeding Intake, Tube 150 160 Irrigant Number 1 Bowel Movements Output, Urine 1150 2200 Patient 105.3 kg Weight Weight Bed scale Measurement Method Vital Signs: Date Time Temp Pulse Resp B/P B/P Pulse O2 O2 F low FiO2 Mean Ox Delivery Rate 06/27 0925 100 Ventilator 30 06/27 0925 70 100 30 06/27 0705 98.8 06/27 0705 Ventilator 30 01/02 0609 68 6 100 01/02 0600 68 8 143/77 102 100 01/02 0545 68 10 139/74 100 99 01/02 0530 68 24 140/77 103 98 01/02 0515 66 7 148/84 108 100 01/02 0500 66 22 154/83 110 98 01/02 0445 64 31 151/86 111 100 01/02 0430 63 31 149/83 108 100 01/02 0415 63 31 144/82 107 100 01/02 0400 98.5 01/02 0400 62 31 138/81 103 100 01/02 0345 62 29 140/82 103 100 01/02 0330 62 28 149/80 107 100 01/02 0315 62 28 144/79 103 100 01/02 0300 61 28 146/77 102 100 01/02 0245 61 28 149/78 105 100 01/02 0230 61 28 141/75 100 100 01/02 0215 60 27 139/72 97 99 01/02 0200 60 29 136/76 98 99 01/02 0145 60 28 138/79 98 100 01/02 0130 60 29 137/76 99 99 01/02 0115 59 30 135/72 98 100 01/02 0108 59 100 30 01/02 0100 59 30 135/76 98 100 01/02 0045 59 28 135/74 98 100 01/02 0030 59 28 133/73 95 100 01/02 0015 58 8 135/73 96 100 01/02 0000 98.7 01/02 0000 58 10 134/72 95 100 01/01 2345 58 9 132/71 95 99 01/01 2330 58 19 134/71 94 100 01/01 2315 58 24 134/70 94 99 01/01 2300 58 10 134/68 92 98 01/01 2245 58 9 131/67 91 98 01/01 2230 58 9 129/66 90 98 01/01 2215 58 11 129/70 91 98 01/01 2200 59 8 132/70 93 100 01/01 2145 59 16 131/68 92 100 /01 9 100 Ventilator 30 /01 213 59 100 30 01/01 2130 59 16 126/67 88 100 01/01 2115 60 37 127/63 88 90 /01 2100 61 18 129/60 88 95 /01 5 61 27 140/76 99 100 01/01 2029 60 24 140/76 100 100 06/26 2014 60 19 140/77 100 100 06/26 1999 98.5 30 06/26 1999 133/73 96 06/26 1959 59 17 100 06/26 1945 59 16 137/73 96 100 06/26 1930 59 18 131/71 94 100 06/26 1915 59 14 135/71 96 100 06/26 1910 Ventilator 30 06/26 1900 59 13 133/69 93 100 06/26 1845 59 13 132/73 94 100 06/26 1830 59 12 133/72 95 100 06/26 1815 59 16 133/73 96 100 06/26 1804 59 9 100 06/26 1800 59 21 140/74 98 100 06/26 1745 59 14 133/70 94 100 06/26 1737 59 100 30 06/26 1730 59 15 130/68 92 100 06/26 1715 59 14 121/64 86 100 06/26 1700 59 12 130/71 93 99 06/26 1650 59 12 128/67 89 97 06/26 1630 59 0 131/67 90 100 06/26 1615 59 0 129/66 90 100 06/26 1600 98.4 06/26 1600 59 8 133/69 92 100 06/26 1545 59 0 131/67 92 100 06/26 1530 59 0 134/68 94 100 06/26 1515 60 0 130/66 89 100 06/26 1500 60 0 131/66 90 100 06/26 1445 60 5 129/65 89 100 06/26 1430 60 2 128/66 88 100 06/26 1415 60 0 128/63 86 100 06/26 1400 61 0 128/64 87 100 06/26 1345 61 0 133/66 92 100 06/26 1330 61 0 132/65 90 100 06/26 1315 62 0 131/66 90 100 06/26 1300 62 20 130/67 90 100 06/26 1245 63 5 135/72 96 100 06/26 1237 63 100 30 PATIENT WEIGHT: Weight (lb): 232 Weight (oz): 2.35 Weight (kg): 105.300 Medications: Active Meds + DC'd Last 24 Hrs Labetalol HCl 300 MG Q8HR PO (UNV) Clonidine HCl 0.2 MG Q7D TRANSDERM (UNV) Amlodipine Besylate 5 MG Q12HR PO Hydralazine HCl 50 MG Q8HR PO Aspirin 81 MG DAILY FEED-TUBE Atorvastatin Calcium 40 MG DAILY FEED-TUBE Albuterol/Ipratropium 3 ML RTQ6H INH Furosemide 20 MG BID@0700,1500 IV Carvedilol 25 MG Q8H PO (DCr) Perflutren Lipid Microsphere DIRECTED ONCE PRN IV Sodium Chloride DIRECTED ONCE PRN IV Sodium Chloride 5 ML ONCE PRN IV Nicardipine HCl 250 ML TITRATE IV Dexmedetomidine HCl 400 MCG TITRATE IV Sodium Chloride 96 ML Dextrose/Water 25 ML ASDIR PRN IV Glucagon 1 MG ASDIR PRN IM Insulin Human Lispro LOW DOSE SCALE ASDIR SUBQ Sterile Water 1 ML ASDIR PRN IM Propofol 100 ML TITRATE IV (CKD) Midazolam HCl 100 ML TITRATE IV (CKD) Epinephrine 8 MG TITRATE IV (CKD) Sodium Chloride 242 ML Norepinephrine Bitartrate 16 MG TITRATE IV Sodium Chloride 234 ML Perflutren Lipid Microsphere DIRECTED ONCE PRN IV Sodium Chloride DIRECTED ONCE PRN IV Sodium Chloride 5 ML ONCE PRN IV Fentanyl Citrate 50 ML TITRATE IV (CKD) Famotidine 20 MG DAILY PO Heparin Sodium (Porcine) 5,000 UNIT Q12HR SUBQ Esmolol HCl 250 ML TITRATE IV (CKD) Physical Exam General appearance: respiratory support Head/Eyes: atraumatic, normocephalic, PERRL ENT: moist mucosal membranes, normal nose Neck: non-tender, supple/no meningismus Cardiovascular: CV assessment: regular rate and rhythm, no murm ur Respiratory: no distress, coarse breathsounds, m echanically ventialted Abdomen: soft, non-tender Upper extremity: UE assessment: normal capillary refill, normal temperature Lower extremity: LE assessment: normal capillary refill, normal temperature, no edema Musculoskeletal: normal inspection Neuro/RADIOTELEGRAPHIST: intubated and sedated, withdraws to p ainful stimuli Diagnosis, Assessment Plan Free Text DxA P Notes Free Text DxA P Notes: 1. Hypertensive urgency/emergency - presented with severely elevated BP requiring 2 IV infusions, subsequently suffered PEA cardiac arrest - BP very high - - hydralazine added - coreg changed to labetalol - clonidine patch added - norvasc added - wean down cardene and esmlol as much as we ca n -Currently on esmolol drip at 150 - goal bp 120-140/60-80 2. Cardiac arrest - PEA in etiology, pt became hypothermic and sub sequently bradycardic 3. Type B aortic dissection s/p EVAR - has residual descending aortic dissect ion extending into iliacs. No evidence of rupture on CTA. Reviewed by vascular surgery - appreciate assitance - needs aggressive BP Control. 4. Acute on chronic systolic heart failure - likely hypertensive heart disease due to long standing elevated BP - warm and well perfused on examination - need low dose lasix to see if this helps, he i s edematous 5. Shock - resolved - warm and well perfused on examination 6. JENNIFER on CKD stage 3 - likely secondary to fluctuation in BP - nephrology following, appreciate recommendatio ns - monitor UOP 7. Acute hypoxic respiratory failure - wean from ventilator as tolerated - per ICU te am Will follow. Please call if questions. [facility]iology Electronically Signed by Abhi Ortiz DO on 06/27 at 1237 RPT #:[id number] END OF REPORT 2020-06-27 12:16:00-00:[address] [facility] ([facility]) Nephrology Progress Note REPORT#:[id number] REPORT STATUS: Signed DATE:06/27/20 TIME: 1216 PATIENT: JORGE GOINS UNIT #: [id number] ROOM/BED: [address] : [birth year] AGE: 34 SEX: M ATTEND: Luis M Olmedo MD ADM AUTHOR: Jojo York MD * ALL edits or amendments must be made on the [employer]/computer document * Subjective Comments: events noted Objective General VS/I O: Vital Signs: Date Time Temp Pulse Resp B/P B/P Pulse O2 O2 F low FiO2 Mean Ox Delivery Rate 06/27 0925 100 Ventilator 30 06/27 0925 70 100 30 06/27 0705 98.8 06/27 0705 Ventilator 30 / 0609 68 6 100 / 0600 68 8 143/77 102 100 / 0545 68 10 139/74 100 99 06/27 0530 68 24 140/77 103 98 / 0515 66 7 148/84 108 100 / 0500 66 22 154/83 110 98 01/02 0445 64 31 151/86 111 100 01/02 0430 63 31 149/83 108 100 01/02 0415 63 31 144/82 107 100 01/02 0400 98.5 01/02 0400 62 31 138/81 103 100 01/02 0345 62 29 140/82 103 100 01/02 0330 62 28 149/80 107 100 01/02 0315 62 28 144/79 103 100 01/02 0300 61 28 146/77 102 100 01/02 0245 61 28 149/78 105 100 01/02 0230 61 28 141/75 100 100 01/02 0215 60 27 139/72 97 99 01/02 0200 60 29 136/76 98 99 01/02 0145 60 28 138/79 98 100 01/02 0130 60 29 137/76 99 99 01/02 0115 59 30 135/72 98 100 01/02 0108 59 100 30 01/02 0100 59 30 135/76 98 100 01/02 0045 59 28 135/74 98 100 01/02 0030 59 28 133/73 95 100 01/02 0015 58 8 135/73 96 100 01/02 0000 98.7 01/02 0000 58 10 134/72 95 100 01/01 2345 58 9 132/71 95 99 01/01 2330 58 19 134/71 94 100 01/01 2315 58 24 134/70 94 99 01/01 2300 58 10 134/68 92 98 01/01 2245 58 9 131/67 91 98 01/01 2230 58 9 129/66 90 98 01/01 2215 58 11 129/70 91 98 01/01 2200 59 8 132/70 93 100 /01 2145 59 16 131/68 92 100 /01 2139 100 Ventilator 30 / 2139 59 100 30 01/01 2130 59 16 126/67 88 100 01/01 2115 60 37 127/63 88 90 /01 2100 61 18 129/60 88 95 /01 2044 61 27 140/76 99 100 /01 2029 60 24 140/76 100 100 /2014 60 19 140/77 100 100 01/01 1999 98.5 30 /1999 133/73 96 /01 1959 59 17 100 /01 1945 59 16 137/73 96 100 /01 1930 59 18 131/71 94 100 06/26 1915 59 14 135/71 96 100 06/26 1910 Ventilator 30 06/26 1900 59 13 133/69 93 100 06/26 1845 59 13 132/73 94 100 06/26 1830 59 12 133/72 95 100 06/26 1815 59 16 133/73 96 100 06/26 1804 59 9 100 01 1800 59 21 140/74 98 100 06/26 1745 59 14 133/70 94 100 06/26 1737 59 100 30 06/26 1730 59 15 130/68 92 100 06/26 1715 59 14 121/64 86 100 06/26 1700 59 12 130/71 93 99 06/26 1650 59 12 128/67 89 97 06/26 1630 59 0 131/67 90 100 06/26 1615 59 0 129/66 90 100 06/26 1600 98.4 06/26 1600 59 8 133/69 92 100 06/26 1545 59 0 131/67 92 100 06/26 1530 59 0 134/68 94 100 06/26 1515 60 0 130/66 89 100 06/26 1500 60 0 131/66 90 100 06/26 1445 60 5 129/65 89 100 06/26 1430 60 2 128/66 88 100 06/26 1415 60 0 128/63 86 100 06/26 1400 61 0 128/64 87 100 06/26 1345 61 0 133/66 92 100 06/26 1330 61 0 132/65 90 100 06/26 1315 62 0 131/66 90 100 06/26 1300 62 20 130/67 90 100 06/26 1245 63 5 135/72 96 100 06/26 1237 63 100 30 06/26 1234 64 30 138/73 99 100 06/26 1230 64 33 121/60 85 100 24 hour I O ending at 0700: 06/27 0700 06/26 1900 Intake Total 3433.00 6373.00 Output Total 1150 2200 Balance 2283.00 4173.00 Intake, IV 2733.00 5263.00 Intake, Tube 550 950 Feeding Intake, Tube 150 160 Irrigant Number 1 Bowel Movements Output, Urine 1150 2200 Patient 105.3 kg Weight Weight Bed scale Measurement Method Medications Active Meds + DC'd Last 24 Hrs Amlodipine Besylate 5 MG Q12HR PO Hydralazine HCl 50 MG Q8HR PO Aspirin 81 MG DAILY FEED-TUBE Atorvastatin Calcium 40 MG DAILY FEED-TUBE Albuterol/Ipratropium 3 ML RTQ6H INH Furosemide 20 MG BID@0700,1500 IV Carvedilol 25 MG Q8H PO Perflutren Lipid Microsphere DIRECTED ONCE PRN IV Sodium Chloride DIRECTED ONCE PRN IV Sodium Chloride 5 ML ONCE PRN IV Nicardipine HCl 250 ML TITRATE IV Dexmedetomidine HCl 400 MCG TITRATE IV Sodium Chloride 96 ML Dextrose/Water 25 ML ASDIR PRN IV Glucagon 1 MG ASDIR PRN IM Insulin Human Lispro LOW DOSE SCALE ASDIR SUBQ Sterile Water 1 ML ASDIR PRN IM Propofol 100 ML TITRATE IV (CKD) Midazolam HCl 100 ML TITRATE IV (CKD) Epinephrine 8 MG TITRATE IV (CKD) Sodium Chloride 242 ML Norepinephrine Bitartrate 16 MG TITRATE IV Sodium Chloride 234 ML Perflutren Lipid Microsphere DIRECTED ONCE PRN IV Sodium Chloride DIRECTED ONCE PRN IV Sodium Chloride 5 ML ONCE PRN IV Fentanyl Citrate 50 ML TITRATE IV (CKD) Famotidine 20 MG DAILY PO Heparin Sodium (Porcine) 5,000 UNIT Q12HR SUBQ Esmolol HCl 250 ML TITRATE IV (CKD) Physical Exam General appearance: no acute distress Head/eyes: normal conjunctiva/sclera Neck: no JVD Respiratory: symmetric expansion Genitourinary: zuñiga, urine Musculoskeletal: normal inspection Neuro/RADIOTELEGRAPHIST: SEDATED Hemodialysis access: Type: vascath Psychiatry: unable to evaluate Results Findings/Data: Laboratory Tests 06/27 0630 Blood Gas Puncture Site R Radial ABG pH (7.35 - 7.45 pH units) 7.44 ABG pCO2 (35 - 48 mmHg) 33.6 L ABG pO2 (83 - 108 mmHg) 99.1 ABG PO2/FiO2 Ratio (mm/Hg) 330.33 ABG HCO3 (21 - 28 mmol/L) 23.1 ABG Total CO2 (22 - 29 mmol/L) 22.9 ABG O2 Sat Calc/Denise (94 - 98 %) 98.0 ABG Base Excess (-2 - 3 mmol/L) -0.6 Emmanuel Test N/A Sodium (138 - 146 mmol/L) 141 Potassium (3.5 - 4.5 mmol/L) 3.8 Ionized Calcium (1.15 - 1.33 MMOL/L) 1.17 Respiration Rate (12 - 20 /MIN) 12 O2 Delivery Device Adult Vent Vent Mode SIMV/PC FiO2 (%) 30 Pressure Support (cmH2O) 10 Instrument (Specimen Descript) Arterial Laboratory Tests 06/27 06/27 06/26 0630 0158 1804 Chemistry Sodium (137 - 145 mmol/L) 139 Potassium (3.4 - 5.0 mmol/L) 4.1 Chloride (98 - 107 mmol/L) 108 H Carbon Dioxide (22 - 30 mmol/L) 25 BUN (9 - 20 mg/dL) 37 H Creatinine (0.7 - 1.3 mg/dL) 1.1 Glomerular Filtr Rate (>60) 99 Glucose (74 - 106 mg/dL) 102 POC Glucose (74 - 100 mg/dL) 118 H 98 Calcium (8.4 - 10.2 mg/dL) 7.7 L Triglycerides (mg/dL) 135 Laboratory Tests 06/27 0158 Hematology WBC (5.0 - 12.0 x10 3/uL) 5.5 RBC (4.70 - 6.10 x10 6/uL) 3.22 L Hgb (14.0 - 18.0 g/dL) 9.2 L Hct (37.0 - 49.0 %) 30.6 L MCV (80 - 94 fL) 95 H MCH (27 - 31 pg) 28.6 MCHC (33 - 37 g/dL) 30.1 L RDW (11.5 - 15.5 %) 16.1 H Plt Count (130 - 400 x10 3/uL) 166 MPV (9.4 - 16.4 fL) 11.9 Neut % (Auto) (43 - 65 %) 77.1 H Lymph % (Auto) (20.5 - 45.5 %) 8.6 L Citrus % (Auto) (5.5 - 11.7 %) 11.2 Eos % (Auto) (0.9 - 2.9 %) 2.4 Baso % (Auto) (0.2 - 1.0 %) 0.0 L Neut # (Auto) (2.2 - 4.8 x10 3/uL) 4.20 Lymph # (Auto) (1.3 - 2.9 x10 3/uL) 0.47 L Citrus # (Auto) (0.3 - 0.8 x10 3/uL) 0.61 Eos # (Auto) (0.0 - 0.2 x10 3/uL) 0.13 Baso # (Auto) (0.0 - 0.1 x10 3/uL) 0.00 Immature Gran % (0.0 - 2.0 %) 0.7 Nucleated RBC % (0 - 1.0 %) 0.0 Diagnosis, Assessment Plan Free Text A P: JENNIFER hypotension AAA lactic acidosis severe metabolic acidosis Cr stable/improved; UOP good continue twice daily lasix Acidosis resolved will monitor at 1217 RPT #:[id number] END OF REPORT 2020-06-27 10:15:00-00:00 [id number] [facility] [address] [facility] [address] [place] [id number] PATIENT NAME: JORGE GOINS ADMIT DATE: 06/19 ACCOUNT NO: [id number] ROOM NO: [place] [address] AGE: 34 REPORT TYPE: eECHOCARDIOGRAM REPORT. SEX: M ADMITTING PHYSICIAN:Edy Olmedo MD ATTENDING PHYSICIAN:Edy Olmedo MD *[facility]* [address] [place] [address] Transthoracic Echocardiogram Patient: Jorge Goins Study Date: 06/25/2020 BP: 136 / 70 Location: [facility] URN: [id number] 261 : 1985 Age: 34 Height: 70 in / 177.8 cm Gender: M Weight: 219 .5 lb / 99.8 kg BMI/BSA: 31.6 kg/m 2 / 2.25 m 2 *Ordering Physician: * Papi England *Interpreting Physician: * Abhi Ortiz DO *Customer Technical Services Manager: * Nadine Barrett [facility] ([place]) Indications: CARDIOMYOPATHY/ POST CARDIAC ARREST . Study data: Transthoracic echocardiogram. Proced ure: Transthoracic echocardiography was performed. Images were obta ined using a [employer] E95 1 cardiac ultrasound machine. Complete 2D, complet e spectral Doppler, and color Doppler. Patient status: Inpatient. Saturnino gonsalez room number: ICC20. Study status: Routine. Findings Left ventricle: The cavity size is normal. Wall thickness is normal. Systolic function is mildly to moderately reduce d. The estimated ejection fraction is 40-44%. D shaped Septum due to pressure/volume overload. Regional wall motion abnormalities can not be excluded. Doppler parameters are consistent with abnormal left dalton tricular relaxation (grade 1 diastolic dysfunction). PATIENT NAME: JORGE GOINS [id number] Right ventricle: The cavity size is normal. Syst olic function is normal. Left atrium: The atrium is mildly dilated. Right atrium: The atrium is normal in size. Aorta: Aortic root: The aortic root is normal in size. Aortic valve: The valve is structurally normal. The valve is trileaflet. There is no evidence of stenosis. Th ere is no regurgitation. Mitral valve: The valve is structurally normal. There is no evidence of stenosis. There is no regurgitation. Tricuspid valve: The valve is structurally brooklynn l. There is no regurgitation. Pulmonic valve: The valve is structurally normal . There is no regurgitation. Pericardium: A small pericardial effusion is cornelio ntified posterior to the heart. Pulmonary arteries: The main pulmonary artery is normal-sized. Systemic veins: Inferior vena cava: The vessel is mildly dilated . Measurements Left ventricle Value Ref JULIET, LAX 5.2 cm 4.2 - 5.8 ESD, LAX 4.2 cm 2.5 - 4.0 ESD/bsa, LAX 1.9 cm/m 2 1.3 - 2.1 FS, LAX 20 % 25 - 43 ESD/bsa major ax, 3.9 cm/m 2 A4C JULIET/bsa minor ax, 3.9 cm/m 2 A4C JULIET major ax, A2C 9.9 cm ESD major ax, A2C 9.7 cm JULIET/bsa major ax, 4.4 cm/m 2 A2C ESD/bsa major ax, 4.3 cm/m 2 A2C PW, ED 1.7 cm 0.6 - 1.0 PW, ES 2.4 cm IVS/PW, ED 1.13 EF 41 % 52 - 72 LVOT Value Ref Diam, S 2.15 cm Area 3.6 cm 2 Peak matt, S 0.95 m/sec Mean matt, S 0.72 m/sec VTI, S 16.0 cm Peak grad, S 4 mm Hg Mean grad, S 2 mm Hg SV 58 ml SV/bsa 26 ml/m 2 PATIENT NAME: JORGE GOINS [id number] Ventricular septum Value Ref IVS, ED 1.9 cm 0.6 - 1.0 IVS, ES 1.8 cm Right ventricle Value Ref JULIET, LAX 3.1 cm Pressure, S 41 mm Hg Left atrium Value Ref AP dim, ES 4.48 cm 3.00 - 4.00 Aortic valve Value Ref Peak v, S 1.75 m/sec Mean v, S 1.22 m/sec VTI, S 28.5 cm Mean grad, S 6.7 mm Hg Peak grad, S 12.2 mm Hg LVOT/AV, VTI ratio 0.56 NORMA, VTI 2.04 cm 2 LVOT/AV, Vpeak ratio 0.55 NORMA, Vmax 1.98 cm 2 Mitral valve Value Ref Peak E 0.61 m/sec Peak A 0.81 m/sec Decel time 248 ms Peak E/A ratio 0.75 Pulmonic valve Value Ref ND peak v 1.31 m/sec ND peak grad 7 mm Hg ND grad, ED 7 mm Hg Tricuspid valve Value Ref TR peak v 2.79 m/sec <=2.8 Peak RV-RA grad, S 31 mm Hg Aortic root Value Ref Root diam 3.9 cm <4.0 Ascending aorta Value Ref AAo AP diam, S 3.4 cm AAo AP diam/bsa, S 1.5 cm/m 2 Pulmonary artery Value Ref Pressure, S 36.2 mm Hg Systemic veins Value Ref Estimated CVP 10 mm Hg Conclusions PATIENT NAME: JORGE GOINS [id number] Summary: 1. Left ventricle: The cavity size is normal. Wa ll thickness is normal. Systolic function is mildly to moderately reduc ed. The estimated ejection fraction is 40-44%. D shaped Septum du e to pressure/volume overload. Regional wall motion abnormalities ca nnot be excluded. Doppler parameters are consistent with abnormal left ventricular relaxation (grade 1 diastolic dysfunction). 2. Left atrium: The atrium is mildly dilated. 3. Pericardium, extracardiac: A small pericardia l effusion is identified posterior to the heart. Prepared and electronically signed by Abhi Ortiz DO 06/27/2020 10:14 Electronically Signed by Abhi Ortiz DO on 08/16 at 1015 PATIENT NAME: JORGE GOINS [id number] 23:37:00-00:00 [facility] Critical Care Progress Note REPORT#:[id number] REPORT STATUS: Signed DATE:06/26/20 TIME: 233 PATIENT: JORGE GOINS UNIT #: [id number] ROOM[address]BED: [address] : 86 AGE: 34 SEX: M ATTEND: Luis M Olmedo MD ADM AUTHOR: Papi England MD * ALL edits or amendments must be made on the el [employer]/computer document * Subjective Chief Complaint: ams MULTIFOCAL CVA IN mrii Objective General VS/I O Last Documented: Result Date Time Pulse Ox 100 06/26 2138 FiO2 30 06/26 2138 O2 Delivery Ventilator 06/26 2138 Pulse 59 06/26 2138 Temp 36.9 06/26 1999 B/P 133/69 06/26 1899 B/P Mean 93 06/26 1899 Resp 13 06/26 190 O2 Flow Rate 0 06/26 0936 24 hour I O ending at 0700: 06/26 0700 06/25 1900 Intake Total 1970.00 Output Total 2400 Balance -430.00 Intake, IV 1970.00 Output, Urine 2400 PATIENT WEIGHT: Weight (lb): 232 Weight (oz): 2.35 Weight (kg): 105.300 Medications: Active Meds + DC'd Last 24 Hrs Aspirin 81 MG DAILY FEED-TUBE Atorvastatin Calcium 40 MG DAILY FEED-TUBE Albuterol/Ipratropium 3 ML RTQ6H INH Furosemide 20 MG BID@0700,1500 IV Carvedilol 25 MG Q8H PO Perflutren Lipid Microsphere DIRECTED ONCE PRN IV Sodium Chloride DIRECTED ONCE PRN IV Sodium Chloride 5 ML ONCE PRN IV Nicardipine HCl 250 ML TITRATE IV Dexmedetomidine HCl 400 MCG TITRATE IV Sodium Chloride 96 ML Dextrose/Water 25 ML ASDIR PRN IV Glucagon 1 MG ASDIR PRN IM Insulin Human Lispro LOW DOSE SCALE ASDIR SUBQ Sterile Water 1 ML ASDIR PRN IM Propofol 100 ML TITRATE IV (CKD) Midazolam HCl 100 ML TITRATE IV (CKD) Epinephrine 8 MG TITRATE IV (CKD) Sodium Chloride 242 ML Norepinephrine Bitartrate 16 MG TITRATE IV Sodium Chloride 234 ML Perflutren Lipid Microsphere DIRECTED ONCE PRN IV Sodium Chloride DIRECTED ONCE PRN IV Sodium Chloride 5 ML ONCE PRN IV Fentanyl Citrate 50 ML TITRATE IV (CKD) Azithromycin 500 MG DAILY IV (DC) Sodium Chloride 250 ML Cefepime HCl 1 GM Q12HR IV (DC) Sterile Water 10 ML Famotidine 20 MG DAILY PO Heparin Sodium (Porcine) 5,000 UNIT Q12HR SUBQ Esmolol HCl 250 ML TITRATE IV (CKD) Physical Exam General appearance: altered mental status Head/Eyes: atraumatic, normocephalic Cardiovascular: normal heart sounds, normal S1 S 2, normal rate and rhythm Respiratory/Chest: aerating well, clear to auscu ltation Abdomen: soft, non-tender, normal bowel sounds, no distention Extremities: no edema Neuro/RADIOTELEGRAPHIST: disoriented Results Findings/Data: Laboratory Tests 06/26/20 0158: [Embedded Image Not Available] Laboratory Tests 06/26 755 Blood Gas Puncture Site R Radial ABG pH (7.35 - 7.45 pH units) 7.46 H ABG pCO2 (35 - 48 mmHg) 32.7 L ABG pO2 (83 - 108 mmHg) 99.0 ABG PO2/FiO2 Ratio (mm/Hg) 330.00 ABG HCO3 (21 - 28 mmol/L) 23.1 ABG Total CO2 (22 - 29 mmol/L) 23.0 ABG O2 Sat Calc/Denise (94 - 98 %) 98.1 H ABG Base Excess (-2 - 3 mmol/L) -0.1 Emmanuel Test Positive Sodium (138 - 146 mmol/L) 141 Potassium (3.5 - 4.5 mmol/L) 3.8 Ionized Calcium (1.15 - 1.33 MMOL/L) 1.10 L Respiration Rate (12 - 20 /MIN) 14 O2 Delivery Device Adult Vent Vent Mode SIMV(VC)+PS FiO2 (%) 30 Pressure Support (cmH2O) 30 Instrument (Specimen Descript) Arterial Laboratory Tests 06/26 06/26 06/26 075 0745 0158 Chemistry Sodium (137 - 145 mmol/L) 138 Potassium (3.4 - 5.0 mmol/L) 3.9 Chloride (98 - 107 mmol/L) 107 Carbon Dioxide (22 - 30 mmol/L) 27 BUN (9 - 20 mg/dL) 42 H Creatinine (0.7 - 1.3 mg/dL) 1.4 H Glomerular Filtr Rate (>60) 75 Glucose (74 - 106 mg/dL) 93 POC Glucose (74 - 100 mg/dL) 117 H 106 Calcium (8.4 - 10.2 mg/dL) 7.7 L Phosphorus (2.5 - 4.5 mg/dL) 3.6 Magnesium (1.6 - 2.3 mg/dL) 1.8 Laboratory Tests 06/26 157 Hematology WBC (5.0 - 12.0 x10 3/uL) 6.7 RBC (4.70 - 6.10 x10 6/uL) 3.16 L Hgb (14.0 - 18.0 g/dL) 9.1 L Hct (37.0 - 49.0 %) 30.4 L MCV (80 - 94 fL) 96 H MCH (27 - 31 pg) 28.8 MCHC (33 - 37 g/dL) 29.9 L RDW (11.5 - 15.5 %) 16.2 H Plt Count (130 - 400 x10 3/uL) 169 MPV (9.4 - 16.4 fL) 10.6 Neut % (Auto) (43 - 65 %) 74.1 H Lymph % (Auto) (20.5 - 45.5 %) 9.7 L Citrus % (Auto) (5.5 - 11.7 %) 13.3 H Eos % (Auto) (0.9 - 2.9 %) 2.1 Baso % (Auto) (0.2 - 1.0 %) 0.1 L Neut # (Auto) (2.2 - 4.8 x10 3/uL) 4.96 H Lymph # (Auto) (1.3 - 2.9 x10 3/uL) 0.65 L Citrus # (Auto) (0.3 - 0.8 x10 3/uL) 0.89 H Eos # (Auto) (0.0 - 0.2 x10 3/uL) 0.14 Baso # (Auto) (0.0 - 0.1 x10 3/uL) 0.01 Immature Gran % (0.0 - 2.0 %) 0.7 Nucleated RBC % (0 - 1.0 %) 0.0 Radiology data Recent Impressions: RADIOLOGY - XR CHEST 1 V 06/26 0518 Report Impression - Status: SIGNED Entered: 06/26/2020 0711 IMPRESSION: 1. Improvement of aeration involving the right l ower lobe. 2. All lines and tube remains unchanged in the p osition. Except for NG tube which appears to have been retracted to the upper esophagus. Recommend repositioning. Impression By: Frederick Higgins M.D. [facility] - MRI BRAIN W/O CONTR AST 06/26 1115 Report Impression - Status: SIGNED Entered: 06/26/2020 1346 IMPRESSION: Small regions of restricted diffusion within the left frontal lobe and left occipital lobe, concerning for acute infarc ts. Abnormal patchy periventricular/deep white matte r T2/FLAIR hyperintensities within the frontal lobes and pa rietal lobes, which are nonspecific. Possibilities include, but are not limited to, vasogenic edema, vasculitis, demyelination or in fection. Correlation with a contrast-enhanced MRI examination is maury mmended. Findings conveyed to the patient's nurse, Ana María teresa, at 1342 hours on 06/26/2020. FOR INTERNAL CODING PURPOSES ONLY RESULT CODE: CVRRN Impression By: [email or web address] - Paras Faustin MD Diagnosis, Assessment Plan Free text A P: 34 year old male with history of aortic dissecti on s/p EVAR came in for hypertensive urgency A/P: Neuro -intubated -on versed #AMS likely metabolic -MRI multifocal cva -on versed -EEG pending -neuro following Pulm -s/p intubation following cardiac arrest -on FiO2 28% -ABG this AM 7.47/29.3/118.3/21.1 -mental status not optimal for extubation Airway protection is an issue will proceed with trach CV #s/p Cardiac Arrest - PEA hypotensive. ROSC achieved after 9 minutes - likely from cardiogenic shock EF 30-34% - off all pressors - Aortic dissection ruled out from CTA chest , a bdomen and pelvis #hx of EVAR for aortic dissection and h/o endole ak in the past - seen by Dr. Ramires's group last admission. Dr. Wallace larsen consulted -Cardio consulted -CTA chest ECHO WMA check with cardiology about need for heart cath #HTN -restart coreg -on cardene -cardio following -monitor #hypotension -resolved -off pressors -cortisol AM wnl -monitor GI -dilated fluid filled loops of small bowel seen on CT -surgery consulted - no surgical intervention -lactic downtrending -monitor Renal #JENNIFER -Cr 3.3 -making urine -mena cath in place, may need HD -s/p cardiac arrest -CTA showed inflammation changes surrounding kid neys -nephro following -monitor gi ppx: pepcid dvt ppx: heparin Diet: tube feeds condition critical prognosis guarded at 0833 RPT #:[id number] END OF REPORT 2020-06-26 20:32:00-00:[address] [facility] ([facility]) Cardiology Progress Note REPORT#:[id number] REPORT STATUS: Signed DATE:06/26/20 TIME: 2031 PATIENT: JORGE GOINS UNIT #: [id number] ROOM/BED: [address] : [birth year] AGE: 34 SEX: M ATTEND: Luis M Olmedo MD ADM AUTHOR: Giancarlo Phan MD * ALL edits or amendments must be made on the el [employer]/computer document * Subjective Free Text Subj Notes Free Text Subj Notes: intubated and sedated Objective Physical Exam Head/Eyes: atraumatic, normocephalic, PERRL ENT: moist mucosal membranes, normal nose Neck: non-tender, supple/no meningismus Cardiovascular: CV assessment: regular rate and rhythm, no murm ur Respiratory: no distress, coarse breathsounds, m echanically ventialted Abdomen: soft, non-tender Upper extremity: UE assessment: normal capillary refill, normal temperature Lower extremity: LE assessment: normal capillary refill, normal temperature, no edema Musculoskeletal: normal inspection Neuro/RADIOTELEGRAPHIST: intubated and sedated, withdraws to p ainful stimuli Diagnosis, Assessment Plan Free Text DxA P Notes Free Text DxA P Notes: 1. Hypertensive urgency/emergency - presented with severely elevated BP requiring 2 IV infusions, subsequently suffered PEA cardiac arrest - BP now stable, resume coreg via NG -Currently on esmolol drip at 150 - goal bp 120-140/60-80 2. Cardiac arrest - PEA in etiology, pt became hypothermic and sub sequently bradycardic 3. Type B aortic dissection s/p EVAR - has residual descending aortic dissect ion extending into iliacs. No evidence of rupture on CTA. Reviewed by vascular surgery - appreciate assitance - needs aggressive BP Control. 4. Acute on chronic systolic heart failure - likely hypertensive heart disease due to long standing elevated BP - warm and well perfused on examination - need low dose lasix to see if this helps, he i s edematous 5. Shock - resolved - warm and well perfused on examination 6. JENNIFER on CKD stage 3 - likely secondary to fluctuation in BP - nephrology following, appreciate recommendatio ns - monitor UOP 7. Acute hypoxic respiratory failure - wean from ventilator as tolerated - per ICU te am Will follow. Please call if questions. [facility] Cardiology Electronically Signed by Giancarlo Phan MD on 07/16 at 2034 RPT #:[id number] END OF REPORT 2020-06-26 13:12:00-00:00 [facility] Vascular Surgery Progress Note REPORT#:[id number] REPORT STATUS: Signed DATE:06/26/20 TIME: 1312 PATIENT: JORGE GOINS UNIT #: [id number] ROOM/BED: [address] : [birth year] AGE: 34 SEX: M ATTEND: Luis M Olmedo MD ADM AUTHOR: Lorenzo Cardoza MD * ALL edits or amendments must be made on the [employer]/computer document * Subjective Chief Complaint: Intubated and sedated at time of examination HPI 34 year old male with complicated type B dissect ion that will need further intervention. Improving clinically. Objective HEENT: anicteric Neck: supple Cardiovascular: regular rate, hypotensive on mul tiple vasopressors Respiratory: symmetric expansion Abdomen: soft, non-tender, no distention, no gua rding Genitourinary: zuñiga Extremities: moves all, palpable radial and dors diana pedis pulses bilaterally Neuro/RADIOTELEGRAPHIST: intubated and sedated Skin: no flank or back ecchymosis Psychiatry: normal mood Diagnosis, Assessment Plan Free Text A P: 34 year old male with complicated type B dissection in need of extension TEVAR when stable Keep BP less than 120mmhg Extubate when feasible Will need further TEVAR when stable at 1313 RPT #:[id number] END OF REPORT 2020-06-26 12:38:00-00:00 [facility] Neurology Progress Note REPORT#:[id number] REPORT STATUS: Signed DATE:06/26/20 TIME: 1238 PATIENT: JORGE GOINS UNIT #: [id number] ROOM/BED: [address] : [birth year] AGE: 34 SEX: M ATTEND: Luis M Olmedo MD ADM AUTHOR: William Chino DO * ALL edits or amendments must be made on the [employer]/computer document * Subjective Chief Complaint: back on high-dose propofol Objective General VS: Last Documented: Result Date Time Pulse Ox 100 06/26 935 FiO2 30 06/26 0936 O2 Delivery Ventilator 06/26 935 O2 Flow Rate 0 06/26 0936 Pulse 71 06/26 0936 B/P 142/70 06/26 0700 B/P Mean 97 06/26 07 Resp 22 06/26 07 Temp 98.7 06/26 0400 PATIENT WEIGHT: Weight (lb): 232 Weight (oz): 2.35 Weight (kg): 105.300 Medications Current Home Medications ALBUTEROL (PROAIR HFA 90 MCG/ACT 8.5 GM) 2 PUFF INH RTQ6H PRN PRN SOB ASPIRIN EC (ECOTRIN) 81 MG PO DAILY CARVEDILOL (COREG) 25 MG PO BID MEALS ACETAMINOPHEN/CODEINE (TYLENOL WITH CODE INE #4 300/60 MG) 1 TAB PO Q6H PRN PRN PAIN ATORVASTATIN (LIPITOR) 20 MG PO BEDTIME LOSARTAN (COZAAR) 100 MG PO DAILY NIFEdipine CC (ADALAT CC) 90 MG PO Q12HR HYDROCHLOROTHIAZIDE (HYDRODIURIL) 25 MG PO DAILY Active Meds + DC'd Last 24 Hrs Albuterol/Ipratropium 3 ML RTQ6H INH Furosemide 20 MG BID@0700,1500 IV Carvedilol 25 MG Q8H PO Perflutren Lipid Microsphere DIRECTED ONCE PRN IV Sodium Chloride DIRECTED ONCE PRN IV Sodium Chloride 5 ML ONCE PRN IV Nicardipine HCl 250 ML TITRATE IV Dexmedetomidine HCl 400 MCG TITRATE IV Sodium Chloride 96 ML Dextrose/Water 25 ML ASDIR PRN IV Glucagon 1 MG ASDIR PRN IM Insulin Human Lispro LOW DOSE SCALE ASDIR SUBQ Sterile Water 1 ML ASDIR PRN IM Propofol 100 ML TITRATE IV (CKD) Midazolam HCl 100 ML TITRATE IV (CKD) Epinephrine 8 MG TITRATE IV (CKD) Sodium Chloride 242 ML Norepinephrine Bitartrate 16 MG TITRATE IV Sodium Chloride 234 ML Perflutren Lipid Microsphere DIRECTED ONCE PRN IV Sodium Chloride DIRECTED ONCE PRN IV Sodium Chloride 5 ML ONCE PRN IV Fentanyl Citrate 50 ML TITRATE IV (CKD) Azithromycin 500 MG DAILY IV (DC) Sodium Chloride 250 ML Cefepime HCl 1 GM Q12HR IV (DC) Sterile Water 10 ML Famotidine 20 MG DAILY PO Heparin Sodium (Porcine) 5,000 UNIT Q12HR SUBQ Esmolol HCl 250 ML TITRATE IV (CKD) Physical Exam General appearance: respiratory support, sedated Diagnosis, Assessment Plan Free Text A P: A 1. #Lethargy AMS- Likely 2/2 metabolic encephalo shirley -CT brain on 06/21 showed no acute intracranial hemorrhage, with only mild chronic microvascular ischem ic injuries. Also, there are faint calcifications in the bilateral basal ganglia, but the CT brainn is essentially unchanged since . -no interval change on repeat head ct 06/24 2. acute resp. failure etc. P -Continue with current care -D/w nurse -Will continue to follow closely- consider repea t eeg if needed at 1239 RPT #:[id number] END OF REPORT 2020-06-26 11:51:00-00:00 [facility] Nephrology Progress Note REPORT#:[id number] REPORT STATUS: Signed DATE:06/26/20 TIME: 1151 PATIENT: JORGE GOINS UNIT #: [id number] ROOM/BED: [address] : [birth year] AGE: 34 SEX: M ATTEND: Luis M Olmedo MD ADM AUTHOR: Jojo York MD * ALL edits or amendments must be made on the el [employer]/computer document * Subjective Comments: Events noted Objective General VS/I O: Vital Signs: Date Time Temp Pulse Resp B/P B/P Pulse O2 O2 F low FiO2 Mean Ox Delivery Rate 06/26 0936 100 Ventilator 0 30 06/26 0936 71 100 30 06/26 0700 Ventilator 30 06/26 0700 68 22 142/70 97 100 06/26 0645 66 14 131/69 91 100 01/01 0630 65 0 124/64 86 100 01/01 0615 65 1 123/64 86 100 01/01 0600 66 11 123/62 84 100 01/01 0545 66 9 120/62 83 100 01/01 0530 66 13 125/63 84 100 01/01 0515 66 15 126/59 84 100 01/01 0500 66 18 126/59 84 100 01/01 0455 30 01/01 0455 100 Ventilator 30 01/01 0445 67 36 127/65 89 100 01/01 0430 66 29 127/66 87 100 01/01 0415 66 29 126/64 87 100 01/01 0400 98.7 01/01 0400 66 29 128/66 89 100 01/01 0345 66 29 125/66 86 100 01/01 0330 66 32 128/68 89 100 01/01 0315 65 30 121/61 85 100 01/01 0300 65 30 118/58 80 100 01/01 0247 65 30 121/64 85 100 01/01 0245 64 29 119/63 84 100 01/01 0230 63 29 122/63 86 100 01/01 0215 63 22 117/60 81 100 01/01 0200 63 19 119/61 83 100 01/01 0145 64 18 121/60 83 100 01/01 0130 64 16 118/59 83 100 01/01 0115 64 21 121/61 82 100 01/01 0100 64 17 122/60 83 100 01/01 0045 64 19 121/61 82 100 01/01 0030 65 20 122/64 85 100 01/01 0015 65 19 125/63 86 100 01/01 0000 98.5 01/01 0000 65 15 122/63 84 100 06/25 2345 64 17 122/62 85 100 06/25 2330 65 15 124/65 86 100 06/25 2315 65 13 118/60 83 100 06/25 2300 65 15 122/63 86 100 06/25 2245 65 14 125/63 86 100 06/25 2231 30 06/25 2231 100 Ventilator 30 06/25 2230 65 14 121/63 84 100 06/25 2215 65 14 120/62 84 100 06/25 2200 66 14 121/63 85 100 06/25 2145 66 14 120/63 84 100 06/25 2130 66 14 128/66 89 100 06/25 2115 67 14 135/68 93 100 06/25 2100 67 14 135/66 92 100 06/25 2045 67 14 136/67 92 100 06/25 2030 68 14 136/66 92 100 06/25 2015 68 14 143/68 95 100 06/25 2000 97.8 06/25 2000 68 16 140/71 97 100 06/25 1945 69 32 147/72 100 100 06/25 1930 68 31 151/77 105 100 06/25 1920 Ventilator 30 06/25 1915 68 28 146/73 100 100 06/25 1900 68 21 145/80 101 100 06/25 1848 68 41 92 06/25 1845 67 27 138/77 102 100 06/25 1830 125/66 89 06/25 1815 67 22 127/69 91 100 06/25 1810 67 100 30 06/25 1800 67 17 126/67 91 100 06/25 1745 67 15 126/66 89 100 06/25 1730 67 17 125/66 89 100 06/25 1715 68 23 130/67 91 100 06/25 1700 68 27 130/68 92 100 06/25 1645 68 29 138/70 95 100 06/25 1630 69 23 137/69 94 100 06/25 1619 133/69 93 06/25 1615 68 26 132/72 94 100 06/25 1600 98.9 06/25 1600 68 27 131/74 95 100 06/25 1545 67 20 134/72 97 100 06/25 1530 68 24 136/70 95 100 06/25 1515 67 21 136/69 95 100 06/25 1500 67 0 138/70 96 100 06/25 1445 67 17 140/70 97 100 06/25 1430 66 16 140/74 97 100 06/25 1415 66 16 140/72 97 100 06/25 1400 66 27 140/72 98 100 06/25 1346 66 100 30 06/25 1345 66 29 135/72 95 100 06/25 1330 65 15 143/74 101 100 06/25 1315 65 27 132/74 95 100 06/25 1300 65 19 130/71 92 100 06/25 1245 65 12 131/69 92 100 06/25 1230 65 16 130/67 91 100 06/25 1215 65 23 129/66 89 100 06/25 1200 98.4 06/25 1200 65 16 132/66 92 100 24 hour I O ending at 0700: 06/26 0700 06/25 1900 Intake Total 1970.00 Output Total 2400 Balance -430.00 Intake, IV 1970.00 Output, Urine 2400 Medications Active Meds + DC'd Last 24 Hrs Albuterol/Ipratropium 3 ML RTQ6H INH Furosemide 20 MG BID@0700,1500 IV Carvedilol 25 MG Q8H PO Perflutren Lipid Microsphere DIRECTED ONCE PRN IV Sodium Chloride DIRECTED ONCE PRN IV Sodium Chloride 5 ML ONCE PRN IV Nicardipine HCl 250 ML TITRATE IV Dexmedetomidine HCl 400 MCG TITRATE IV Sodium Chloride 96 ML Dextrose/Water 25 ML ASDIR PRN IV Glucagon 1 MG ASDIR PRN IM Insulin Human Lispro LOW DOSE SCALE ASDIR SUBQ Sterile Water 1 ML ASDIR PRN IM Propofol 100 ML TITRATE IV (CKD) Midazolam HCl 100 ML TITRATE IV (CKD) Epinephrine 8 MG TITRATE IV (CKD) Sodium Chloride 242 ML Norepinephrine Bitartrate 16 MG TITRATE IV Sodium Chloride 234 ML Perflutren Lipid Microsphere DIRECTED ONCE PRN IV Sodium Chloride DIRECTED ONCE PRN IV Sodium Chloride 5 ML ONCE PRN IV Fentanyl Citrate 50 ML TITRATE IV (CKD) Azithromycin 500 MG DAILY IV (DC) Sodium Chloride 250 ML Cefepime HCl 1 GM Q12HR IV (DC) Sterile Water 10 ML Famotidine 20 MG DAILY PO Heparin Sodium (Porcine) 5,000 UNIT Q12HR SUBQ Esmolol HCl 250 ML TITRATE IV (CKD) Physical Exam General appearance: no acute distress Head/eyes: normal conjunctiva/sclera Neck: no JVD Respiratory: symmetric expansion Genitourinary: zuñiga, urine Musculoskeletal: normal inspection Neuro/RADIOTELEGRAPHIST: SEDATED Hemodialysis access: Type: vascath Psychiatry: unable to evaluate Results Findings/Data: Laboratory Tests 06/26 0756 Blood Gas Puncture Site R Radial ABG pH (7.35 - 7.45 pH units) 7.46 H ABG pCO2 (35 - 48 mmHg) 32.7 L ABG pO2 (83 - 108 mmHg) 99.0 ABG PO2/FiO2 Ratio (mm/Hg) 330.00 ABG HCO3 (21 - 28 mmol/L) 23.1 ABG Total CO2 (22 - 29 mmol/L) 23.0 ABG O2 Sat Calc/Denise (94 - 98 %) 98.1 H ABG Base Excess (-2 - 3 mmol/L) -0.1 Emmanuel Test Positive Sodium (138 - 146 mmol/L) 141 Potassium (3.5 - 4.5 mmol/L) 3.8 Ionized Calcium (1.15 - 1.33 MMOL/L) 1.10 L Respiration Rate (12 - 20 /MIN) 14 O2 Delivery Device Adult Vent Vent Mode SIMV(VC)+PS FiO2 (%) 30 Pressure Support (cmH2O) 30 Instrument (Specimen Descript) Arterial Laboratory Tests 06/26 06/26 06/25 06/25 0756 0158 1739 1234 Chemistry Sodium (137 - 145 mmol/L) 138 Potassium (3.4 - 5.0 mmol/L) 3.9 Chloride (98 - 107 mmol/L) 107 Carbon Dioxide (22 - 30 mmol/L) 27 BUN (9 - 20 mg/dL) 42 H Creatinine (0.7 - 1.3 mg/dL) 1.4 H Glomerular Filtr Rate (>60) 75 Glucose (74 - 106 mg/dL) 93 POC Glucose (74 - 100 mg/dL) 117 H 103 100 Calcium (8.4 - 10.2 mg/dL) 7.7 L Phosphorus (2.5 - 4.5 mg/dL) 3.6 Magnesium (1.6 - 2.3 mg/dL) 1.8 Laboratory Tests 06/26 0158 Hematology WBC (5.0 - 12.0 x10 3/uL) 6.7 RBC (4.70 - 6.10 x10 6/uL) 3.16 L Hgb (14.0 - 18.0 g/dL) 9.1 L Hct (37.0 - 49.0 %) 30.4 L MCV (80 - 94 fL) 96 H MCH (27 - 31 pg) 28.8 MCHC (33 - 37 g/dL) 29.9 L RDW (11.5 - 15.5 %) 16.2 H Plt Count (130 - 400 x10 3/uL) 169 MPV (9.4 - 16.4 fL) 10.6 Neut % (Auto) (43 - 65 %) 74.1 H Lymph % (Auto) (20.5 - 45.5 %) 9.7 L Citrus % (Auto) (5.5 - 11.7 %) 13.3 H Eos % (Auto) (0.9 - 2.9 %) 2.1 Baso % (Auto) (0.2 - 1.0 %) 0.1 L Neut # (Auto) (2.2 - 4.8 x10 3/uL) 4.96 H Lymph # (Auto) (1.3 - 2.9 x10 3/uL) 0.65 L Citrus # (Auto) (0.3 - 0.8 x10 3/uL) 0.89 H Eos # (Auto) (0.0 - 0.2 x10 3/uL) 0.14 Baso # (Auto) (0.0 - 0.1 x10 3/uL) 0.01 Immature Gran % (0.0 - 2.0 %) 0.7 Nucleated RBC % (0 - 1.0 %) 0.0 Radiology data: Recent Impressions: ULTRASOUND - DUP ABD/PEL/SC COMP 06/25 1827 Report Impression - Status: SIGNED Entered: 06/25/2020 2303 IMPRESSION: 1. No Doppler evidence of renal artery stenosis. 2. It should be noted that on review of the CT a ngiography of abdomen/pelvis performed 06/21/2020, there appea rs to be a short segment of focal stenosis in the distal left franklyn al artery near hilum. Impression By: Quentin Mendoza MD RADIOLOGY - XR CHEST 1 V 06/26 0418 Report Impression - Status: SIGNED Entered: 06/26/2020 0711 IMPRESSION: 1. Improvement of aeration involving the right l ower lobe. 2. All lines and tube remains unchanged in the p osition. Except for NG tube which appears to have been retracted to the upper esophagus. Recommend repositioning. Impression By: Frederick Higgins M.D. Diagnosis, Assessment Plan Free Text A P: JENNIFER hypotension AAA lactic acidosis severe metabolic acidosis Cr stable/improved; UOP good continue twice daily lasix Acidosis resolved will monitor at 1216 RPT #:[id number] END OF REPORT 2020-06-25 23:31:00-00:[address] [facility] ([facility]) Critical Care Progress Note REPORT#:[id number] REPORT STATUS: Signed DATE:06/25/20 TIME: 233 PATIENT: JORGE GOINS UNIT #: [id number] ROOM/BED: [address] : [birth year] AGE: 34 SEX: M ATTEND: Luis M Olmedo MD ADM AUTHOR: Edy Olmedo MD * ALL edits or amendments must be made on the el [employer]/computer document * Subjective Chief Complaint: ams Objective Physical Exam Head/Eyes: atraumatic, normocephalic Cardiovascular: normal heart sounds, normal S1 S 2, normal rate and rhythm Respiratory/Chest: aerating well, clear to auscu ltation Abdomen: soft, non-tender, normal bowel sounds, no distention Extremities: no edema Neuro/RADIOTELEGRAPHIST: disoriented Diagnosis, Assessment Plan Free text A P: 34 year old male with history of aortic dissecti on s/p EVAR came in for hypertensive urgency A/P: Neuro -intubated -on versed #AMS likely metabolic -CT brain today -on versed -EEG pending -neuro following Pulm -s/p intubation following cardiac arrest -on FiO2 28% -ABG this AM 7.47/29.3/118.3/21.1 -mental status not optimal for extubation CV #s/p Cardiac Arrest - PEA hypotensive. ROSC achieved after 9 minutes - likely from cardiogenic shock EF 30-34% - off all pressors - Aortic dissection ruled out from CTA chest , a bdomen and pelvis #hx of EVAR for aortic dissection and h/o endole ak in the past - seen by Dr. Ramires's group last admission. Dr. Wallace larsen consulted -Cardio consulted -CTA chest ECHO WMA check with cardiology about need for heart cath #HTN -restart coreg -on cardene -cardio following -monitor #hypotension -resolved -off pressors -cortisol AM wnl -monitor GI -dilated fluid filled loops of small bowel seen on CT -surgery consulted - no surgical intervention -lactic downtrending -monitor Renal #JENNIFER -Cr 3.3 -making urine -mena cath in place, may need HD -s/p cardiac arrest -CTA showed inflammation changes surrounding kid neys -nephro following -monitor gi ppx: pepcid dvt ppx: heparin Diet: tube feeds condition critical prognosis guarded Electronically Signed by Edy Olmedo MD on 05/16 at [facility] RPT #:[id number] END OF REPORT 2020-06-25 20:50:00-00:[address] [facility] ([facility]) Cardiology Progress Note REPORT#:[id number] REPORT STATUS: Signed DATE:06/25/20 TIME: 2049 PATIENT: JORGE GOINS UNIT #: [id number] ROOM/BED: [address] : [birth year] AGE: 34 SEX: M ATTEND: Luis M Olmedo MD ADM AUTHOR: Giancarlo Phan MD * ALL edits or amendments must be made on the [employer]/computer document * Subjective Free Text Subj Notes Free Text Subj Notes: Patient still currently intubated and sedated Objective Physical Exam Head/Eyes: atraumatic, normocephalic, PERRL ENT: moist mucosal membranes, normal nose Neck: non-tender, supple/no meningismus Cardiovascular: CV assessment: regular rate and rhythm, no murm ur Respiratory: no distress, coarse breathsounds, m echanically ventialted Abdomen: soft, non-tender Upper extremity: UE assessment: normal capillary refill, normal temperature Lower extremity: LE assessment: normal capillary refill, normal temperature, no edema Musculoskeletal: normal inspection Neuro/RADIOTELEGRAPHIST: intubated and sedated, withdraws to p ainful stimuli Diagnosis, Assessment Plan Free Text DxA P Notes Free Text DxA P Notes: 1. Hypertensive urgency/emergency - presented with severely elevated BP requiring 2 IV infusions, subsequently suffered PEA cardiac arrest - BP now stable, resume coreg via NG -Currently on esmolol drip at 150 - goal bp 120-140/60-80 2. Cardiac arrest - PEA in etiology, pt became hypothermic and sub sequently bradycardic 3. Type B aortic dissection s/p EVAR - has residual descending aortic dissect ion extending into iliacs. No evidence of rupture on CTA. Reviewed by vascular surgery - appreciate assitance - needs aggressive BP Control. 4. Acute on chronic systolic heart failure - likely hypertensive heart disease due to long standing elevated BP - warm and well perfused on examination - need low dose lasix to see if this helps, he i s edematous 5. Shock - resolved - warm and well perfused on examination 6. JENNIFER on CKD stage 3 - likely secondary to fluctuation in BP - nephrology following, appreciate recommendatio ns - monitor UOP 7. Acute hypoxic respiratory failure - wean from ventilator as tolerated - per ICU te am Will follow. Please call if questions. [facility] Electronically Signed by Giancarlo Phan MD on 05/28 07/15 at 2051 RPT #:[id number] END OF REPORT 2020-06-25 12:51:00-00:[address] [facility] ([facility]) Nephrology Progress Note REPORT#:[id number] REPORT STATUS: Signed DATE:06/25/20 TIME: 1251 PATIENT: JORGE GOINS UNIT #: [id number] ROOM/BED: [address] : [birth year] AGE: 34 SEX: M ATTEND: Luis M Olmedo MD ADM AUTHOR: Giancarlo Izaguirre MD R2 * ALL edits or amendments must be made on the [employer]/computer document * Subjective Comments: events noted Review of Systems Unable to obtain due to: ams Objective General VS/I O: Vital Signs: Date Time Temp Pulse Resp B/P B/P Pulse O2 O2 F low FiO2 Mean Ox Delivery Rate 06/25 0915 100 Ventilator 0 30 06/25 0915 68 100 30 06/25 0800 98.3 30 06/25 0736 68 14 141/67 100 06/25 0700 Ventilator 30 06/25 0645 68 12 141/67 95 100 06/25 0630 69 13 137/66 92 100 06/25 0615 69 13 134/65 90 100 06/25 0600 71 12 136/65 91 100 06/25 0545 71 12 125/66 88 100 06/25 0537 72 43 131/68 92 100 06/25 0515 72 18 127/66 89 100 06/25 0500 30 06/25 0500 71 30 127/68 91 100 06/25 0445 71 32 130/69 92 100 06/25 0430 72 28 128/65 89 100 06/25 0430 71 100 30 06/25 0415 71 16 121/65 86 100 06/25 0400 99.3 06/25 0400 70 11 128/67 91 100 06/25 0345 70 28 125/68 89 100 06/25 0330 70 18 123/67 89 100 06/25 0315 70 16 126/69 89 100 06/25 0300 70 31 121/65 86 100 06/25 0245 70 27 123/72 90 100 06/25 0230 71 29 131/69 92 100 06/25 0215 70 12 121/68 87 100 06/25 0200 71 15 121/64 87 100 06/25 0145 71 12 118/63 84 100 06/25 0142 71 100 30 06/25 0130 72 10 120/64 85 100 06/25 0115 72 12 119/63 85 100 06/25 0100 72 16 124/66 87 100 06/25 0045 73 39 131/70 90 100 06/25 0030 74 38 130/70 92 100 06/25 0015 73 23 126/70 90 100 06/25 0000 99.3 06/25 0000 73 19 122/70 89 100 06/24 2345 74 38 130/70 94 100 06/24 2330 73 11 124/64 87 100 06/24 2315 73 12 125/67 87 100 06/24 2300 73 15 124/65 87 100 06/24 2245 75 33 133/65 92 100 06/24 2230 76 34 132/68 93 100 06/24 2215 74 32 131/68 90 100 06/24 2200 100 Ventilator 30 06/24 2200 74 100 30 06/24 2200 73 31 124/69 89 100 06/24 2145 73 30 123/69 90 100 06/24 2130 72 13 126/72 90 100 06/24 2115 72 12 126/69 89 100 06/24 2100 74 28 125/69 89 100 06/24 2045 74 30 123/70 90 100 06/24 2030 73 26 129/74 93 100 06/24 2015 73 20 124/69 90 100 06/24 2000 98.2 06/24 2000 Ventilator 20 06/24 2000 75 28 122/68 90 100 06/24 1945 74 29 122/69 87 100 06/24 1930 73 27 126/67 89 100 06/24 1915 73 21 126/68 91 100 06/24 1900 73 25 123/67 89 100 06/24 1831 74 27 100 06/24 1830 74 29 123/68 88 100 06/24 1815 74 29 131/68 92 100 06/24 1800 75 30 128/67 89 100 06/24 1759 75 27 100 06/24 1745 75 28 126/69 89 100 06/24 1730 77 26 135/65 90 100 06/24 1718 77 27 100 06/24 1715 77 29 131/65 92 100 06/24 1700 77 31 128/67 90 100 06/24 1645 77 27 135/68 93 100 06/24 1630 76 27 130/66 91 100 06/24 1615 75 27 128/60 86 100 06/24 1600 98.4 06/24 1600 72 31 122/64 86 100 06/24 1545 73 29 118/63 82 100 06/24 1530 71 17 116/62 82 100 06/24 1530 70 100 30 06/24 1515 71 12 113/62 80 100 06/24 1500 71 13 113/63 82 100 06/24 1445 71 34 121/69 89 100 06/24 1444 71 31 120/67 87 100 06/24 1430 71 100 06/24 1414 71 99 06/24 1400 72 13 113/64 81 100 06/24 1345 73 13 119/63 83 100 06/24 1330 73 14 120/63 85 100 06/24 1315 74 12 121/63 84 100 24 hour I O ending at 0700: 06/25 0700 06/24 1900 Intake Total 2002.00 1830.00 Output Total 1100 1000 Balance 902.00 830.00 Intake, IV 1202.00 1146.00 Intake, Oral 0 Intake, Tube 600 684 Feeding Intake, Tube 200 Irrigant Output, Stool 200 100 Output, Urine 900 900 Patient 105.3 kg Weight Weight Bed scale Measurement Method Medications Active Meds + DC'd Last 24 Hrs Albuterol/Ipratropium 3 ML RTQ6H INH Furosemide 20 MG BID@0700,1500 IV Carvedilol 25 MG Q8H PO Perflutren Lipid Microsphere DIRECTED ONCE PRN IV Sodium Chloride DIRECTED ONCE PRN IV Sodium Chloride 5 ML ONCE PRN IV Nicardipine HCl 250 ML TITRATE IV Dexmedetomidine HCl 400 MCG TITRATE IV Sodium Chloride 96 ML Dextrose/Water 25 ML ASDIR PRN IV Glucagon 1 MG ASDIR PRN IM Insulin Human Lispro LOW DOSE SCALE ASDIR SUBQ Sterile Water 1 ML ASDIR PRN IM Propofol 100 ML TITRATE IV (CKD) Midazolam HCl 100 ML TITRATE IV (CKD) Epinephrine 8 MG TITRATE IV (CKD) Sodium Chloride 242 ML Norepinephrine Bitartrate 16 MG TITRATE IV Sodium Chloride 234 ML Perflutren Lipid Microsphere DIRECTED ONCE PRN IV Sodium Chloride DIRECTED ONCE PRN IV Sodium Chloride 5 ML ONCE PRN IV Fentanyl Citrate 50 ML TITRATE IV (CKD) Azithromycin 500 MG DAILY IV Sodium Chloride 250 ML Cefepime HCl 1 GM Q12HR IV Sterile Water 10 ML Famotidine 20 MG DAILY PO Morphine Sulfate 2 MG Q4H PRN PRN IV (DC) Heparin Sodium (Porcine) 5,000 UNIT Q12HR SUBQ Hydrocodone Bitart/Acetaminophen 1 TAB Q6H PRN P RN PO (DC) Esmolol HCl 250 ML TITRATE IV (CKD) Physical Exam General appearance: altered mental status, respi ratory support Head/eyes: normal conjunctiva/sclera Neck: no JVD Respiratory: symmetric expansion Genitourinary: zuñiga, urine Musculoskeletal: normal inspection Neuro/RADIOTELEGRAPHIST: SEDATED Hemodialysis access: Type: vascath Psychiatry: unable to evaluate Results Findings/Data: Laboratory Tests 06/25 0428 Blood Gas Puncture Site L Radial ABG pH (7.35 - 7.45 pH units) 7.47 H ABG pCO2 (35 - 48 mmHg) 33.2 L ABG pO2 (83 - 108 mmHg) 90.3 ABG PO2/FiO2 Ratio (mm/Hg) 301.00 ABG HCO3 (21 - 28 mmol/L) 23.9 ABG Total CO2 (22 - 29 mmol/L) 23.7 ABG O2 Sat Calc/Denise (94 - 98 %) 97.6 ABG Base Excess (-2 - 3 mmol/L) 0.5 Emmanuel Test Positive Sodium (138 - 146 mmol/L) 141 Potassium (3.5 - 4.5 mmol/L) 3.3 L Ionized Calcium (1.15 - 1.33 MMOL/L) 1.13 L Respiration Rate (12 - 20 /MIN) 31 H O2 Delivery Device Adult Vent Vent Mode SIMV(VC)+PS FiO2 (%) 30 Pressure Support (cmH2O) 10 Instrument (Specimen Descript) Arterial Laboratory Tests 06/25/30 1234 0820 0428 0356 2141 Chemistry Sodium (137 - 145 mmol/L) 141 Potassium (3.4 - 5.0 mmol/L) 3.5 Chloride (98 - 107 mmol/L) 108 H Carbon Dioxide (22 - 30 mmol/L) 25 BUN (9 - 20 mg/dL) 50 H Creatinine (0.7 - 1.3 mg/dL) 1.5 H Glomerular Filtr Rate (>60) 69 Glucose (74 - 106 mg/dL) 105 POC Glucose (74 - 106 MG/DL) 100 92 121 H 86 Calcium (8.4 - 10.2 mg/dL) 7.5 L Phosphorus (2.5 - 4.5 mg/dL) 3.2 Magnesium (1.6 - 2.3 mg/dL) 1.9 06/24 06/24 1824 1749 Chemistry POC Glucose (74 - 106 MG/DL) 99 65 L Laboratory Tests 06/25 0356 Hematology WBC (5.0 - 12.0 x10 3/uL) 8.2 RBC (4.70 - 6.10 x10 6/uL) 3.60 L Hgb (14.0 - 18.0 g/dL) 10.3 L Hct (37.0 - 49.0 %) 33.1 L MCV (80 - 94 fL) 92 MCH (27 - 31 pg) 28.6 MCHC (33 - 37 g/dL) 31.1 L RDW (11.5 - 15.5 %) 15.9 H Plt Count (130 - 400 x10 3/uL) 191 MPV (9.4 - 16.4 fL) 10.4 Neut % (Auto) (43 - 65 %) 77.8 H Lymph % (Auto) (20.5 - 45.5 %) 7.7 L Citrus % (Auto) (5.5 - 11.7 %) 12.1 H Eos % (Auto) (0.9 - 2.9 %) 1.7 Baso % (Auto) (0.2 - 1.0 %) 0.1 L Neut # (Auto) (2.2 - 4.8 x10 3/uL) 6.37 H Lymph # (Auto) (1.3 - 2.9 x10 3/uL) 0.63 L Citrus # (Auto) (0.3 - 0.8 x10 3/uL) 0.99 H Eos # (Auto) (0.0 - 0.2 x10 3/uL) 0.14 Baso # (Auto) (0.0 - 0.1 x10 3/uL) 0.01 Immature Gran % (0.0 - 2.0 %) 0.6 Nucleated RBC % (0 - 1.0 %) 0.0 Radiology data: Recent Impressions: CAT SCAN - CT HEAD/BRAIN W/O CONT 06/24 1420 Report Impression - Status: SIGNED Entered: 06/24/2020 1446 IMPRESSION: 1. Unremarkable noncontrast CT head. Please note that CT examination of the brain can be normal for acute stages of CVA. Diagnosis should be based on clin ical history and neurologic exam. Followup MRI of the brain has g reater sensitivity for early detection of acute infarct. This report was generated by using voice recogni tion software. Impression By: Frederick Higgins M.D. RADIOLOGY - XR CHEST 1 V 06/25 0501 Report Impression - Status: SIGNED Entered: 06/25/2020 0723 IMPRESSION: New right lower lobe atelectasis. Lines and tubes as above. Impression By: LourdesCaterina Mohamud MD Diagnosis, Assessment Plan Free Text A P: JENNIFER hypotension AAA lactic acidosis severe metabolic acidosis Cr stable/improved; UOP good continue twice daily lasix Acidosis resolved HD catheter placed; if HD needed, will order will monitor Electronically Signed by Giancarlo Izaguirre MD R2 on at 1309 RPT #:[id number] END OF REPORT 2020-06-25 12:51:00-00:[address] [facility] ([facility]) Nephrology Progress Note REPORT#:[id number] REPORT STATUS: Signed DATE:06/25/20 TIME: 1251 PATIENT: JORGE GOINS UNIT #: [id number] ROOM/BED: [place] [id number] : 86 AGE: 34 SEX: M ATTEND: Luis M Olmedo MD ADM AUTHOR: Giancarlo Izaguirre MD R2 * ALL edits or amendments must be made on the el [employer] document * Subjective Comments: events noted Review of Systems Unable to obtain due to: ams Objective General VS/I O: Vital Signs: Date Time Temp Pulse Resp B/P B/P Pulse O2 O2 F low FiO2 Mean Ox Delivery Rate 06/25 0915 100 Ventilator 0 30 06/25 0915 68 100 30 06/25 0800 98.3 30 06/25 0736 68 14 141/67 100 06/25 0700 Ventilator 30 06/25 0645 68 12 141/67 95 100 06/25 0630 69 13 137/66 92 100 06/25 0615 69 13 134/65 90 100 06/25 0600 71 12 136/65 91 100 06/25 0545 71 12 125/66 88 100 06/25 0537 72 43 131/68 92 100 06/25 0515 72 18 127/66 89 100 06/25 0500 30 06/25 0500 71 30 127/68 91 100 06/25 0445 71 32 130/69 92 100 06/25 0430 72 28 128/65 89 100 06/25 0430 71 100 30 06/25 0415 71 16 121/65 86 100 06/25 0400 99.3 06/25 0400 70 11 128/67 91 100 06/25 0345 70 28 125/68 89 100 06/25 0330 70 18 123/67 89 100 06/25 0315 70 16 126/69 89 100 06/25 0300 70 31 121/65 86 100 06/25 0245 70 27 123/72 90 100 06/25 0230 71 29 131/69 92 100 06/25 0215 70 12 121/68 87 100 06/25 0200 71 15 121/64 87 100 06/25 0145 71 12 118/63 84 100 06/25 0142 71 100 30 06/25 0130 72 10 120/64 85 100 06/25 0115 72 12 119/63 85 100 06/25 0100 72 16 124/66 87 100 06/25 0045 73 39 131/70 90 100 06/25 0030 74 38 130/70 92 100 06/25 0015 73 23 126/70 90 100 06/25 0000 99.3 06/25 0000 73 19 122/70 89 100 06/24 2345 74 38 130/70 94 100 06/24 2330 73 11 124/64 87 100 12/30 2315 73 12 125/67 87 100 30 2300 73 15 124/65 87 100 06/24 2245 75 33 133/65 92 100 30 2230 76 34 132/68 93 100 06/24 2215 74 32 131/68 90 100 30 2200 100 Ventilator 30 30 2200 74 100 30 06/24 2200 73 31 124/69 89 100 30 2145 73 30 123/69 90 100 30 2130 72 13 126/72 90 100 30 2115 72 12 126/69 89 100 06/24 2100 74 28 125/69 89 100 06/24 2045 74 30 123/70 90 100 06/24 2030 73 26 129/74 93 100 06/24 2015 73 20 124/69 90 100 06/24 2000 98.2 06/24 2000 Ventilator 20 06/24 2000 75 28 122/68 90 100 06/24 1945 74 29 122/69 87 100 06/24 1930 73 27 126/67 89 100 06/24 1915 73 21 126/68 91 100 06/24 1900 73 25 123/67 89 100 06/24 1831 74 27 100 06/24 1830 74 29 123/68 88 100 06/24 1815 74 29 131/68 92 100 06/24 1800 75 30 128/67 89 100 06/24 1759 75 27 100 06/24 1745 75 28 126/69 89 100 06/24 1730 77 26 135/65 90 100 06/24 1718 77 27 100 06/24 1715 77 29 131/65 92 100 06/24 1700 77 31 128/67 90 100 06/24 1645 77 27 135/68 93 100 06/24 1630 76 27 130/66 91 100 06/24 1615 75 27 128/60 86 100 06/24 1600 98.4 06/24 1600 72 31 122/64 86 100 06/24 1545 73 29 118/63 82 100 06/24 1530 71 17 116/62 82 100 06/24 1530 70 100 30 30 1515 71 12 113/62 80 100 30 1500 71 13 113/63 82 100 30 1445 71 34 121/69 89 100 06/24 1444 71 31 120/67 87 100 30 1430 71 100 06/24 1414 71 99 06/24 1400 72 13 113/64 81 100 12/30 1345 73 13 119/63 83 100 06/24 1330 73 14 120/63 85 100 06/24 1315 74 12 121/63 84 100 24 hour I O ending at 0700: 06/25 0700 06/24 1900 Intake Total 2001. 1830.00 Output Total 1100 1000 Balance 902.00 830.00 Intake, IV 1202.00 1146.00 Intake, Oral 0 Intake, Tube 600 684 Feeding Intake, Tube 200 Irrigant Output, Stool 200 100 Output, Urine 900 900 Patient 105.3 kg Weight Weight Bed scale Measurement Method Medications Active Meds + DC'd Last 24 Hrs Albuterol/Ipratropium 3 ML RTQ6H INH Furosemide 20 MG BID@0700,1500 IV Carvedilol 25 MG Q8H PO Perflutren Lipid Microsphere DIRECTED ONCE PRN IV Sodium Chloride DIRECTED ONCE PRN IV Sodium Chloride 5 ML ONCE PRN IV Nicardipine HCl 250 ML TITRATE IV Dexmedetomidine HCl 400 MCG TITRATE IV Sodium Chloride 96 ML Dextrose/Water 25 ML ASDIR PRN IV Glucagon 1 MG ASDIR PRN IM Insulin Human Lispro LOW DOSE SCALE ASDIR SUBQ Sterile Water 1 ML ASDIR PRN IM Propofol 100 ML TITRATE IV (CKD) Midazolam HCl 100 ML TITRATE IV (CKD) Epinephrine 8 MG TITRATE IV (CKD) Sodium Chloride 242 ML Norepinephrine Bitartrate 16 MG TITRATE IV Sodium Chloride 234 ML Perflutren Lipid Microsphere DIRECTED ONCE PRN IV Sodium Chloride DIRECTED ONCE PRN IV Sodium Chloride 5 ML ONCE PRN IV Fentanyl Citrate 50 ML TITRATE IV (CKD) Azithromycin 500 MG DAILY IV Sodium Chloride 250 ML Cefepime HCl 1 GM Q12HR IV Sterile Water 10 ML Famotidine 20 MG DAILY PO Morphine Sulfate 2 MG Q4H PRN PRN IV (DC) Heparin Sodium (Porcine) 5,000 UNIT Q12HR SUBQ Hydrocodone Bitart/Acetaminophen 1 TAB Q6H PRN P RN PO (DC) Esmolol HCl 250 ML TITRATE IV (CKD) Physical Exam General appearance: altered mental status, respi ratory support Head/eyes: normal conjunctiva/sclera Neck: no JVD Respiratory: symmetric expansion Genitourinary: zuñiga, urine Musculoskeletal: normal inspection Neuro/RADIOTELEGRAPHIST: SEDATED Hemodialysis access: Type: vascath Psychiatry: unable to evaluate Results Findings/Data: Laboratory Tests 06/25 0428 Blood Gas Puncture Site L Radial ABG pH (7.35 - 7.45 pH units) 7.47 H ABG pCO2 (35 - 48 mmHg) 33.2 L ABG pO2 (83 - 108 mmHg) 90.3 ABG PO2/FiO2 Ratio (mm/Hg) 301.00 ABG HCO3 (21 - 28 mmol/L) 23.9 ABG Total CO2 (22 - 29 mmol/L) 23.7 ABG O2 Sat Calc/Denise (94 - 98 %) 97.6 ABG Base Excess (-2 - 3 mmol/L) 0.5 Emmanuel Test Positive Sodium (138 - 146 mmol/L) 141 Potassium (3.5 - 4.5 mmol/L) 3.3 L Ionized Calcium (1.15 - 1.33 MMOL/L) 1.13 L Respiration Rate (12 - 20 /MIN) 31 H O2 Delivery Device Adult Vent Vent Mode SIMV(VC)+PS FiO2 (%) 30 Pressure Support (cmH2O) 10 Instrument (Specimen Descript) Arterial Laboratory Tests 06/25 06/25 06/25 06/25 06/24 1234 0820 0428 0356 2141 Chemistry Sodium (137 - 145 mmol/L) 141 Potassium (3.4 - 5.0 mmol/L) 3.5 Chloride (98 - 107 mmol/L) 108 H Carbon Dioxide (22 - 30 mmol/L) 25 BUN (9 - 20 mg/dL) 50 H Creatinine (0.7 - 1.3 mg/dL) 1.5 H Glomerular Filtr Rate (>60) 69 Glucose (74 - 106 mg/dL) 105 POC Glucose (74 - 106 MG/DL) 100 92 121 H 86 Calcium (8.4 - 10.2 mg/dL) 7.5 L Phosphorus (2.5 - 4.5 mg/dL) 3.2 Magnesium (1.6 - 2.3 mg/dL) 1.9 06/24 06/24 1824 1749 Chemistry POC Glucose (74 - 106 MG/DL) 99 65 L Laboratory Tests 06/25 0356 Hematology WBC (5.0 - 12.0 x10 3/uL) 8.2 RBC (4.70 - 6.10 x10 6/uL) 3.60 L Hgb (14.0 - 18.0 g/dL) 10.3 L Hct (37.0 - 49.0 %) 33.1 L MCV (80 - 94 fL) 92 MCH (27 - 31 pg) 28.6 MCHC (33 - 37 g/dL) 31.1 L RDW (11.5 - 15.5 %) 15.9 H Plt Count (130 - 400 x10 3/uL) 191 MPV (9.4 - 16.4 fL) 10.4 Neut % (Auto) (43 - 65 %) 77.8 H Lymph % (Auto) (20.5 - 45.5 %) 7.7 L Citrus % (Auto) (5.5 - 11.7 %) 12.1 H Eos % (Auto) (0.9 - 2.9 %) 1.7 Baso % (Auto) (0.2 - 1.0 %) 0.1 L Neut # (Auto) (2.2 - 4.8 x10 3/uL) 6.37 H Lymph # (Auto) (1.3 - 2.9 x10 3/uL) 0.63 L Citrus # (Auto) (0.3 - 0.8 x10 3/uL) 0.99 H Eos # (Auto) (0.0 - 0.2 x10 3/uL) 0.14 Baso # (Auto) (0.0 - 0.1 x10 3/uL) 0.01 Immature Gran % (0.0 - 2.0 %) 0.6 Nucleated RBC % (0 - 1.0 %) 0.0 Radiology data: Recent Impressions: CAT SCAN - CT HEAD/BRAIN W/O CONT 06/24 1420 Report Impression - Status: SIGNED Entered: 06/24/2020 1446 IMPRESSION: 1. Unremarkable noncontrast CT head. Please note that CT examination of the brain can be normal for acute stages of CVA. Diagnosis should be based on clin ical history and neurologic exam. Followup MRI of the brain has g reater sensitivity for early detection of acute infarct. This report was generated by using voice recogni tion software. Impression By: Frederick Higgins M.D. RADIOLOGY - XR CHEST 1 V 06/25 0501 Report Impression - Status: SIGNED Entered: 06/25/2020 5286 IMPRESSION: New right lower lobe atelectasis. Lines and tubes as above. Impression By: LourdesHV2 - Denny Mohamud MD Diagnosis, Assessment Plan Free Text A P: JENNIFER hypotension AAA lactic acidosis severe metabolic acidosis Cr stable/improved; UOP good continue twice daily lasix Acidosis resolved HD catheter placed; if HD needed, will order will monitor Electronically Signed by Giancarlo Izaguirre MD R2 on at 1309 at 1021 RPT #:[id number] END OF REPORT 2020-06-25 12:31:00-00:00 [facility] Neurology Progress Note REPORT#:[id number] REPORT STATUS: Signed DATE:06/25/20 TIME: 1231 PATIENT: JORGE GOINS UNIT #: [id number] ROOM/BED: [address] : [birth year] AGE: 34 SEX: M ATTEND: Luis M Olmedo MD ADM AUTHOR: William Chino DO * ALL edits or amendments must be made on the rimidi/computer document * Subjective Chief Complaint: intermittent shoulder shrugs after propofol was stopped Objective General VS: Last Documented: Result Date Time Pulse Ox 100 06/25 0915 FiO2 30 06/25 0915 O2 Delivery Ventilator 06/25 915 O2 Flow Rate 0 06/25 0915 Pulse 68 06/25 0915 Temp 98.3 06/25 0800 B/P 141/67 06/25 0736 Resp 14 06/25 0736 B/P Mean 95 06/25 0645 PATIENT WEIGHT: Weight (lb): 232 Weight (oz): 2.35 Weight (kg): 105.300 Medications Current Home Medications ALBUTEROL (PROAIR HFA 90 MCG/ACT 8.5 GM) 2 PUFF INH RTQ6H PRN PRN SOB ASPIRIN EC (ECOTRIN) 81 MG PO DAILY CARVEDILOL (COREG) 25 MG PO BID MEALS ACETAMINOPHEN/CODEINE (TYLENOL WITH CODE INE #4 300/60 MG) 1 TAB PO Q6H PRN PRN PAIN ATORVASTATIN (LIPITOR) 20 MG PO BEDTIME LOSARTAN (COZAAR) 100 MG PO DAILY NIFEdipine CC (ADALAT CC) 90 MG PO Q12HR HYDROCHLOROTHIAZIDE (HYDRODIURIL) 25 MG PO DAILY Active Meds + DC'd Last 24 Hrs Albuterol/Ipratropium 3 ML RTQ6H INH Furosemide 20 MG BID@0700,1500 IV Carvedilol 25 MG Q8H PO Perflutren Lipid Microsphere DIRECTED ONCE PRN IV Sodium Chloride DIRECTED ONCE PRN IV Sodium Chloride 5 ML ONCE PRN IV Nicardipine HCl 250 ML TITRATE IV Dexmedetomidine HCl 400 MCG TITRATE IV Sodium Chloride 96 ML Dextrose/Water 25 ML ASDIR PRN IV Glucagon 1 MG ASDIR PRN IM Insulin Human Lispro LOW DOSE SCALE ASDIR SUBQ Sterile Water 1 ML ASDIR PRN IM Propofol 100 ML TITRATE IV (CKD) Midazolam HCl 100 ML TITRATE IV (CKD) Epinephrine 8 MG TITRATE IV (CKD) Sodium Chloride 242 ML Norepinephrine Bitartrate 16 MG TITRATE IV Sodium Chloride 234 ML Perflutren Lipid Microsphere DIRECTED ONCE PRN IV Sodium Chloride DIRECTED ONCE PRN IV Sodium Chloride 5 ML ONCE PRN IV Fentanyl Citrate 50 ML TITRATE IV (CKD) Azithromycin 500 MG DAILY IV Sodium Chloride 250 ML Cefepime HCl 1 GM Q12HR IV Sterile Water 10 ML Famotidine 20 MG DAILY PO Morphine Sulfate 2 MG Q4H PRN PRN IV (DC) Heparin Sodium (Porcine) 5,000 UNIT Q12HR SUBQ Hydrocodone Bitart/Acetaminophen 1 TAB Q6H PRN P RN PO (DC) Esmolol HCl 250 ML TITRATE IV (CKD) Physical Exam General appearance: lethargic, respiratory suppo rt, episodic shoulder shrugs/ jerks Diagnosis, Assessment Plan Free Text A P: A 1. #Lethargy AMS- Likely 2/2 metabolic encephalo shirley -CT brain on 06/21 showed no acute intracranial hemorrhage, with only mild chronic microvascular ischem ic injuries. Also, there are faint calcifications in the bilateral basal ganglia, but the CT brainn is essentially unchanged since . -no interval change on repeat head ct 06/24 2. acute resp. failure etc. P -Continue with current care -D/w nurse -Will continue to follow closely at 1234 RPT #:[id number] END OF REPORT 2020-06-25 10:35:00-00:00 [facility]) Vascular Surgery Progress Note REPORT#:[id number] REPORT STATUS: Signed DATE:06/25/20 TIME: 1035 PATIENT: JORGE GOINS UNIT #: [id number] ROOM/BED: [address] : [birth year] AGE: 34 SEX: M ATTEND: Luis M Olmedo MD ADM AUTHOR: Lorenzo Cardoza MD * ALL edits or amendments must be made on the rimidi/computer document * Subjective Chief Complaint: Intubated and sedated at time of examination Objective HEENT: anicteric Neck: supple Cardiovascular: regular rate, hypotensive on mul tiple vasopressors Respiratory: symmetric expansion Abdomen: soft, non-tender, no distention, no gua rding Genitourinary: zuñiga Extremities: moves all, palpable radial and dors diana pedis pulses bilaterally Neuro/RADIOTELEGRAPHIST: intubated and sedated Skin: no flank or back ecchymosis Psychiatry: normal mood Diagnosis, Assessment Plan Free Text A P: 34 year old male with complicated type B dissection in need of extension TEVAR when stable Keep BP less than 120mmhg Extubate when feasible Renal artery duplex at 1036 RPT #:[id number] END OF REPORT 2020-06-25 09:14:00-00:00 [id number] [facility]od [facility] [address] [place] [address] PATIENT NAME: JORGE GOINS ADMIT DATE: 06/19 ACCOUNT NO: [id number] ROOM NO: [place] [address] AGE: 34 REPORT TYPE: ELECTROENCEPHALOGRAM SEX: M ADMITTING PHYSICIAN:Edy Olmedo MD ATTENDING PHYSICIAN:Edy Olmedo MD PROCEDURE: Electroencephalogram STUDY DATE: 06/24/2020 CLINICAL HISTORY: This is a 34-year-old black ma le, who is being assessed for confusion or encephalopathy. TECHNICAL DESCRIPTION: This is a digital EEG alanna ng done in the intensive care unit. The International electrode placement syst em 10-20 is used. Referential and bipolar montages are used. FINDINGS: Per technologist, the sedation was tur liz off during the study. However, there is a large amount of movement and muscle activity artifacts throughout the recording. The background rhythm has a frequency of 5 to 6 Hz with amplitude of about 15 to 20 microvo lts. Otherwise, there is no paroxysmal discharge. There is no abnormal driving response during photic stimulation. IMPRESSION: This is an abnormal electroencephalo gram during wakefulness and drowsiness. The findings are suggestive of moderate encephalopathy. Otherwise, there is no clear epileptiform activity. Dictated By: William Chino DO WT: EEG:C.NEURO/LEDEW/NTS Conf#: [id number] Authenticated by William Guerrier On 06/25/2020 08:09 :34 PM Electronically Signed by William Chino DO on 0 at 2008 PATIENT NAME: JORGE GOINS [id number] 18:07:00-00:00 [facility] Cardiology Progress Note REPORT#:[id number] REPORT STATUS: Signed DATE:06/24/20 TIME: 1806 PATIENT: JORGE GOINS UNIT #: [id number] ROOM/BED: [address] : [birth year] AGE: 34 SEX: M ATTEND: Luis M Olmedo MD ADM AUTHOR: Giancarlo Phan MD * ALL edits or amendments must be made on the el [employer]/computer document * Subjective Free Text Subj Notes Free Text Subj Notes: Patient remains intubated and sedated Objective Physical Exam Head/Eyes: atraumatic, normocephalic, PERRL ENT: moist mucosal membranes, normal nose Neck: non-tender, supple/no meningismus Cardiovascular: CV assessment: regular rate and rhythm, no murm ur Respiratory: no distress, coarse breathsounds, m echanically ventialted Abdomen: soft, non-tender Upper extremity: UE assessment: normal capillary refill, normal temperature Lower extremity: LE assessment: normal capillary refill, normal temperature, no edema Musculoskeletal: normal inspection Neuro/RADIOTELEGRAPHIST: intubated and sedated, withdraws to p ainful stimuli Diagnosis, Assessment Plan Free Text DxA P Notes Free Text DxA P Notes: 1. Hypertensive urgency/emergency - presented with severely elevated BP requiring 2 IV infusions, subsequently suffered PEA cardiac arrest - BP now stable, resume coreg via NG - on cardene, but will try to wean to PO medicat ions - goal bp 120-140/60-80 2. Cardiac arrest - PEA in etiology, pt became hypothermic and sub sequently bradycardic 3. Type B aortic dissection s/p EVAR - has residual descending aortic dissect ion extending into iliacs. No evidence of rupture on CTA. Reviewed by vascular surgery - appreciate assitance - needs aggressive BP Control. 4. Acute on chronic systolic heart failure - likely hypertensive heart disease due to long standing elevated BP - warm and well perfused on examination - need low dose lasix to see if this helps, he i s edematous 5. Shock - resolved - warm and well perfused on examination 6. JENNIFER on CKD stage 3 - likely secondary to fluctuation in BP - nephrology following, appreciate recommendatio ns - monitor UOP 7. Acute hypoxic respiratory failure - wean from ventilator as tolerated - per ICU te am Will follow. Please call if questions. [facility] Cardiology Electronically Signed by Giancarlo Phan MD on 05/28 at 1810 RPT #:[id number] END OF REPORT 2020-06-24 14:26:00-00:00 [facility] Critical Care Progress Note REPORT#:[id number] REPORT STATUS: Signed DATE:06/24/20 TIME: 1426 PATIENT: JORGE GOINS UNIT #: [id number] ROOM/BED: [address] : [birth year] AGE: 34 SEX: M ATTEND: Luis M Olmdeo MD ADM AUTHOR: Papi England MD * ALL edits or amendments must be made on the el ectronic/computer document * Subjective Chief Complaint: ams Review of Systems ROS Unable to obtain due to: on vent Objective General VS/I O Last Documented: Result Date Time Pulse Ox 100 12/30 1238 Pulse 75 06/24 1238 Resp 17 06/24 1238 B/P 129/70 06/24 1230 B/P Mean 93 06/24 1230 FiO2 30 06/24 1208 O2 Delivery Ventilator 06/24 1208 Temp 37.2 06/24 1200 O2 Flow Rate 15 06/22 0724 24 hour I O ending at 0700: 06/24 0700 06/23 1900 Intake Total 1932.00 1852.00 Output Total 1775 2200 Balance 157.00 -348.00 Intake, IV 972.00 1241.00 Intake, Tube 960 611 Feeding Output, Stool 100 100 Output, Urine 1675 2100 PATIENT WEIGHT: Weight (lb): 220 Weight (oz): 3.87 Weight (kg): 99.900 Medications: Active Meds + DC'd Last 24 Hrs Carvedilol 25 MG Q8H PO Nicardipine HCl 250 ML TITRATE IV Potassium Bicarbonate/Citric Acid 40 MEQ ONCE ON E FEED-TUBE (DC) Potassium Chloride 40 MEQ ONCE ONE PO (DC) Potassium Bicarbonate/Citric Acid 20 MEQ ONCE ON E PO (DC) Potassium Chloride 100 ML ONCE ONE IV (DC) Potassium Chloride 100 ML ONCE ONE IV (DC) Potassium Bicarbonate/Citric Acid 20 MEQ ONCE ON E FEED-TUBE (DC) Carvedilol 25 MG BID MEALS PO (DC) Dexmedetomidine HCl 400 MCG TITRATE IV Sodium Chloride 96 ML Dextrose/Water 25 ML ASDIR PRN IV Glucagon 1 MG ASDIR PRN IM Insulin Human Lispro LOW DOSE SCALE ASDIR SUBQ Sterile Water 1 ML ASDIR PRN IM Propofol 100 ML TITRATE IV (CKD) Midazolam HCl 100 ML TITRATE IV (CKD) Epinephrine 8 MG TITRATE IV (CKD) Sodium Chloride 242 ML Norepinephrine Bitartrate 16 MG TITRATE IV Sodium Chloride 234 ML Perflutren Lipid Microsphere DIRECTED ONCE PRN IV Sodium Chloride DIRECTED ONCE PRN IV Sodium Chloride 5 ML ONCE PRN IV Fentanyl Citrate 50 ML TITRATE IV (CKD) Azithromycin 500 MG DAILY IV Sodium Chloride 250 ML Cefepime HCl 1 GM Q12HR IV Sterile Water 10 ML Famotidine 20 MG DAILY PO Morphine Sulfate 2 MG Q4H PRN PRN IV Heparin Sodium (Porcine) 5,000 UNIT Q12HR SUBQ Mupirocin 1 APPLIC BID NASAL (DC) Hydrocodone Bitart/Acetaminophen 1 TAB Q6H PRN P RN PO Esmolol HCl 250 ML TITRATE IV (CKD) Nicardipine HCl 250 ML TITRATE IV (DC) Physical Exam General appearance: altered mental status Head/Eyes: atraumatic, normocephalic Cardiovascular: normal heart sounds, normal S1 S 2, normal rate and rhythm Respiratory/Chest: aerating well, clear to auscu ltation Abdomen: soft, non-tender, normal bowel sounds, no distention Extremities: no edema Neuro/RADIOTELEGRAPHIST: disoriented Results Findings/Data: Laboratory Tests 06/24/20 1048: [Embedded Image Not Available] 06/24/20 0629: [Embedded Image Not Available] 06/24/20 0255: [Embedded Image Not Available] 06/23/20 2315: [Embedded Image Not Available] 06/23/20 1715: [Embedded Image Not Available] Laboratory Tests 06/24 0450 Blood Gas Puncture Site R Radial ABG pH (7.35 - 7.45 pH units) 7.43 ABG pCO2 (35 - 48 mmHg) 34.8 L ABG pO2 (83 - 108 mmHg) 88.7 ABG PO2/FiO2 Ratio (mm/Hg) 316.78 ABG HCO3 (21 - 28 mmol/L) 23.1 ABG Total CO2 (22 - 29 mmol/L) 24.1 ABG O2 Sat Calc/Denise (94 - 98 %) 97.2 ABG Base Excess (-2 - 3 mmol/L) -0.8 Emmanuel Test N/A Respiration Rate (12 - 20 /MIN) 0 L O2 Delivery Device Adult Vent Vent Mode CPAP/PS FiO2 (%) 28 Pressure Support (cmH2O) 12 Instrument (Specimen Descript) Arterial Laboratory Tests 06/24 06/24 06/24 06/23 06/23 1048 0629 0255 2331 2315 Chemistry Sodium (137 - 145 mmol/L) 138 Potassium (3.4 - 5.0 mmol/L) 3.5 3.3 L 3.2 L 3. 2 L Chloride (98 - 107 mmol/L) 105 Carbon Dioxide (22 - 30 mmol/L) 26 BUN (9 - 20 mg/dL) 61 H Creatinine (0.7 - 1.3 mg/dL) 2.4 H Glomerular Filtr Rate (>60) 40 L Glucose (74 - 106 mg/dL) 148 H POC Glucose (74 - 106 MG/DL) 108 H Calcium (8.4 - 10.2 mg/dL) 7.3 L 06/23 1723 1715 Chemistry Potassium (3.4 - 5.0 mmol/L) 3.0 L POC Glucose (74 - 106 MG/DL) 71 L 101 Laboratory Tests 06/24 0255 Hematology WBC (5.0 - 12.0 x10 3/uL) 9.3 RBC (4.70 - 6.10 x10 6/uL) 3.77 L Hgb (14.0 - 18.0 g/dL) 10.8 L Hct (37.0 - 49.0 %) 34.6 L MCV (80 - 94 fL) 92 MCH (27 - 31 pg) 28.6 MCHC (33 - 37 g/dL) 31.2 L RDW (11.5 - 15.5 %) 16.1 H Plt Count (130 - 400 x10 3/uL) 215 MPV (9.4 - 16.4 fL) 10.9 Neut % (Auto) (43 - 65 %) 82.4 H Lymph % (Auto) (20.5 - 45.5 %) 7.8 L Citrus % (Auto) (5.5 - 11.7 %) 8.7 Eos % (Auto) (0.9 - 2.9 %) 0.5 L Baso % (Auto) (0.2 - 1.0 %) 0.1 L Neut # (Auto) (2.2 - 4.8 x10 3/uL) 7.68 H Lymph # (Auto) (1.3 - 2.9 x10 3/uL) 0.73 L Citrus # (Auto) (0.3 - 0.8 x10 3/uL) 0.81 H Eos # (Auto) (0.0 - 0.2 x10 3/uL) 0.05 Baso # (Auto) (0.0 - 0.1 x10 3/uL) 0.01 Immature Gran % (0.0 - 2.0 %) 0.5 Nucleated RBC % (0 - 1.0 %) 0.0 Radiology data Recent Impressions: RADIOLOGY - XR CHEST 1 V 06/24 0430 Report Impression - Status: SIGNED Entered: 06/24/2020 0711 IMPRESSION: Lines and tubes as above. Impression By: LourdesHV2 - Denny Mohamud MD Diagnosis, Assessment Plan Free text A P: 34 year old male with history of aortic dissecti on s/p EVAR came in for hypertensive urgency A/P: Neuro -intubated -on versed #AMS likely metabolic -CT brain today -on versed -EEG pending -neuro following Pulm -s/p intubation following cardiac arrest -on FiO2 28% -ABG this AM 7.47/29.3/118.3/21.1 -mental status not optimal for extubation CV #s/p Cardiac Arrest - PEA hypotensive. ROSC achieved after 9 minutes - likely from cardiogenic shock EF 30-34% - off all pressors - Aortic dissection ruled out from CTA chest , a bdomen and pelvis #hx of EVAR for aortic dissection and h/o endole ak in the past - seen by Dr. Ramires's group last admission. Dr. Wallace larsen consulted -Cardio consulted -CTA chest ECHO WMA check with cardiology about need for heart cath #HTN -restart coreg -on cardene -cardio following -monitor #hypotension -resolved -off pressors -cortisol AM wnl -monitor GI -dilated fluid filled loops of small bowel seen on CT -surgery consulted - no surgical intervention -lactic downtrending -monitor Renal #JENNIFER -Cr 3.3 -making urine -mena cath in place, may need HD -s/p cardiac arrest -CTA showed inflammation changes surrounding kid neys -nephro following -monitor gi ppx: pepcid dvt ppx: heparin Diet: tube feeds condition critical prognosis guarded at 1430 RPT #:[id number] END OF REPORT 2020-06-24 11:47:00-00:00 [facility] Neurology Progress Note REPORT#:[id number] REPORT STATUS: Signed DATE:06/24/20 TIME: 1147 PATIENT: JORGE GOINS UNIT #: [id number] ROOM/BED: [address] : [birth year] AGE: 34 SEX: M ATTEND: Luis M Olmedo MD ADM AUTHOR: Tai Haynes MD R1 * ALL edits or amendments must be made on the rimidi/computer document * Subjective Chief Complaint: Cardiac Arrest, JENNIFER, Lethargy, AMS, PNA, Uncontr olled HTN HPI: Patient grimaces to pain. Hedy sethi has new onset failure to withdraw from pain in the lower extremities. Patient does not appear t o be in any acute distress. Review of Systems Unable to obtain due to: Patient sedated Objective General VS: Last Documented: Result Date Time Pulse Ox 99 06/24 0846 FiO2 28 06/24 0846 Pulse 80 06/24 0846 B/P 118/65 06/24 06 B/P Mean 83 06/24 06 Resp 21 06/24 630 Temp 37.1 06/24 0400 O2 Delivery Ventilator 06/23 2211 O2 Flow Rate 15 06/22 0724 PATIENT WEIGHT: Weight (lb): 220 Weight (oz): 3.87 Weight (kg): 99.900 Medications Current Home Medications ALBUTEROL (PROAIR HFA 90 MCG/ACT 8.5 GM) 2 PUFF INH RTQ6H PRN PRN SOB ASPIRIN EC (ECOTRIN) 81 MG PO DAILY CARVEDILOL (COREG) 25 MG PO BID MEALS ACETAMINOPHEN/CODEINE (TYLENOL WITH CODE INE #4 300/60 MG) 1 TAB PO Q6H PRN PRN PAIN ATORVASTATIN (LIPITOR) 20 MG PO BEDTIME LOSARTAN (COZAAR) 100 MG PO DAILY NIFEdipine CC (ADALAT CC) 90 MG PO Q12HR HYDROCHLOROTHIAZIDE (HYDRODIURIL) 25 MG PO DAILY Active Meds + DC'd Last 24 Hrs Carvedilol 25 MG Q8H PO Nicardipine HCl 250 ML TITRATE IV Potassium Bicarbonate/Citric Acid 40 MEQ ONCE ON E FEED-TUBE (DC) Potassium Chloride 40 MEQ ONCE ONE PO (DC) Potassium Bicarbonate/Citric Acid 20 MEQ ONCE ON E PO (DC) Potassium Chloride 100 ML ONCE ONE IV (DC) Potassium Chloride 100 ML ONCE ONE IV (DC) Potassium Bicarbonate/Citric Acid 20 MEQ ONCE ON E FEED-TUBE (DC) Potassium Chloride 100 ML ONCE ONE IV (DC) Carvedilol 25 MG BID MEALS PO (DC) Dexmedetomidine HCl 400 MCG TITRATE IV Sodium Chloride 96 ML Dextrose/Water 1,000 ML .[id number] IV (DC) Dextrose/Water 25 ML ASDIR PRN IV Glucagon 1 MG ASDIR PRN IM Insulin Human Lispro LOW DOSE SCALE ASDIR SUBQ Sterile Water 1 ML ASDIR PRN IM Propofol 100 ML TITRATE IV (CKD) Midazolam HCl 100 ML TITRATE IV (CKD) Epinephrine 8 MG TITRATE IV (CKD) Sodium Chloride 242 ML Norepinephrine Bitartrate 16 MG TITRATE IV Sodium Chloride 234 ML Perflutren Lipid Microsphere DIRECTED ONCE PRN IV Sodium Chloride DIRECTED ONCE PRN IV Sodium Chloride 5 ML ONCE PRN IV Fentanyl Citrate 50 ML TITRATE IV (CKD) Azithromycin 500 MG DAILY IV Sodium Chloride 250 ML Cefepime HCl 1 GM Q12HR IV Sterile Water 10 ML Famotidine 20 MG DAILY PO Morphine Sulfate 2 MG Q4H PRN PRN IV Heparin Sodium (Porcine) 5,000 UNIT Q12HR SUBQ Mupirocin 1 APPLIC BID NASAL (DC) Hydrocodone Bitart/Acetaminophen 1 TAB Q6H PRN P RN PO Esmolol HCl 250 ML TITRATE IV (CKD) Nicardipine HCl 250 ML TITRATE IV (DC) Nutrition asessment: The data set between the solid lines has been im ported from the dietitian's assessment. Any exceptions have been noted under Provider comments. BMI Calculated: 30.7 Nutrition related diagnosis: Obese Nutrition diagnosis details: BMI 30-39.9 Nutrition problem: Inadequate oral intake Nutrition etiology: RESPIRATORY STATUS Nutrition signs and symptoms: [facility],, NPO, NEED FOR ENTERAL NUTRITIO, N Nutrition prescription: -REC OMMEND TF REGIMEN OF JEVITY 1.5 TO INCREASE TO GOAL RATE OF 50ML/HR TO PROVIDE 1 800 KCAL, 76GM PRO, 912ML FREE WATER -RECOMMEND 24GM HEALTHY SHOT TID -RECOMMNED WATER FLUSH OF 30ML EVERY 4 HRS W/IVF'S -RECOMMNED WATER FLUSH OF 30ML/HR WITH NO IVF'S -RD TO F/U PER PROTOCOL Dietitian name: Marzena Juarez RDN, LD Assessment completed: 06/22/20 Provider comments on imported dietitian assessme nt: Physical Exam Head/Eyes: atraumatic, normocephalic ENT: moist mucosal membranes Neck: non-tender, supple/no meningismus, no brui t / NL carotids, no masses or swelling Cardiovascular: irregular rate and rhythm, murmu r Respiratory: decreased breath sounds, intubated/ mech vent Abdomen: non-tender, normal bowel sounds, soft Neuro/RADIOTELEGRAPHIST: lethargic, came o ff versed sedation yesterday intubated does not open eyes or follow commands Diagnosis, Assessment Plan Free Text A P: Problem List/A P: 1. Hypertensive urgency 2. Noncompliance 3. Generalized headaches 4. Viral illness 5. Prostatitis 6. Hypertensive urgency 7. Acute prostatitis with hematuria 8. High blood pressure 9. Uncontrolled hypertension 10. Testicular pain, right 11. Abdominal pain 12. Back pain 13. Hypertension 14. Medication refill 15. Asthma 16. Noncompliance w/medication treatment due to intermit use of medication 17. Acute asthma 18. Acute asthma exacerbation 19. Asthma exacerbation 20. New onset of congestive heart failure 21. Shortness of breath 22. Abnormal kidney function 23. CHF exacerbation 24. JENNIFER (acute kidney injury) 25. Hypokalemia 26. CHF (congestive heart failure) 27. Left against medical advice 28. Chest pain 29. Heart failure 30. Hypertensive emergency 31. Cholecystitis 32. Pulmonary edema 33. Elevated troponin 34. Aortic dissection 35. Dental abscess 36. COVID-19 37. Multifocal neurological deficit 38. Multifocal pneumonia 39. Accelerated essential hypertension Free Text A P: #Lethargy AMS- Likely 2/2 metabolic encephalopat hy -most likely 2/2 metabolic encephalopathy -s/p code yesterday, successfully rescucitated -BUN 64 (downtrending from 73 yesterday) Cr 2.4 today -CT brain on 06/21 showed no acute intracranial hemorrhage, with only mild chronic microvascular ischem ic injuries. Also, there are faint calcifications in the bilateral basal ganglia, but the CT brainn is essentially unchanged since . -CT head repeat ordered for new onset failure to withdraw from stimuli in the lower extremities -Fentanyl stopped, propofol started -EEG is still pending -No need for brain MRI for now -Continue with observation -D/w nurse -Will continue to follow closely Discussed with the attending neurologist, Dr. Chino . still pending eeg Electronically Signed by Tai Haynes MD R1 on 1 at 1157 RPT #:[id number] END OF REPORT 2020-06-24 11:47:00-00:[address] [facility] ([facility] Neurology Progress Note REPORT#:[id number] REPORT STATUS: Signed DATE:06/24/20 TIME: 1147 PATIENT: JORGE GOINS UNIT #: [id number] ROOM/BED: [address] : [birth year] AGE: 34 SEX: M ATTEND: Luis M Olmedo MD ADM AUTHOR: Tai Haynes MD R1 * ALL edits or amendments must be made on the rimidi/computer document * Tai Haynes 06/24/20 1147: Subjective Chief Complaint: Cardiac Arrest, JENNIFER, Lethargy, AMS, PNA, Uncontr olled HTN HPI: Patient grimaces to pain. Hedy sethi has new onset failure to withdraw from pain in the lower extremities. Patient does not appear t o be in any acute distress. Review of Systems Unable to obtain due to: Patient sedated Objective General VS: Last Documented: Result Date Time Pulse Ox 99 06/24 0846 FiO2 28 06/24 0846 Pulse 80 06/24 0846 B/P 118/65 06/24 0630 B/P Mean 83 06/24 0630 Resp 21 06/24 06 Temp 37.1 06/24 0400 O2 Delivery Ventilator 06/23 2211 O2 Flow Rate 15 06/22 0724 PATIENT WEIGHT: Weight (lb): 220 Weight (oz): 3.87 Weight (kg): 99.900 Medications Current Home Medications ALBUTEROL (PROAIR HFA 90 MCG/ACT 8.5 GM) 2 PUFF INH RTQ6H PRN PRN SOB ASPIRIN EC (ECOTRIN) 81 MG PO DAILY CARVEDILOL (COREG) 25 MG PO BID MEALS ACETAMINOPHEN/CODEINE (TYLENOL WITH CODE INE #4 300/60 MG) 1 TAB PO Q6H PRN PRN PAIN ATORVASTATIN (LIPITOR) 20 MG PO BEDTIME LOSARTAN (COZAAR) 100 MG PO DAILY NIFEdipine CC (ADALAT CC) 90 MG PO Q12HR HYDROCHLOROTHIAZIDE (HYDRODIURIL) 25 MG PO DAILY Active Meds + DC'd Last 24 Hrs Carvedilol 25 MG Q8H PO Nicardipine HCl 250 ML TITRATE IV Potassium Bicarbonate/Citric Acid 40 MEQ ONCE ON E FEED-TUBE (DC) Potassium Chloride 40 MEQ ONCE ONE PO (DC) Potassium Bicarbonate/Citric Acid 20 MEQ ONCE ON E PO (DC) Potassium Chloride 100 ML ONCE ONE IV (DC) Potassium Chloride 100 ML ONCE ONE IV (DC) Potassium Bicarbonate/Citric Acid 20 MEQ ONCE ON E FEED-TUBE (DC) Potassium Chloride 100 ML ONCE ONE IV (DC) Carvedilol 25 MG BID MEALS PO (DC) Dexmedetomidine HCl 400 MCG TITRATE IV Sodium Chloride 96 ML Dextrose/Water 1,000 ML .[id number] IV (DC) Dextrose/Water 25 ML ASDIR PRN IV Glucagon 1 MG ASDIR PRN IM Insulin Human Lispro LOW DOSE SCALE ASDIR SUBQ Sterile Water 1 ML ASDIR PRN IM Propofol 100 ML TITRATE IV (CKD) Midazolam HCl 100 ML TITRATE IV (CKD) Epinephrine 8 MG TITRATE IV (CKD) Sodium Chloride 242 ML Norepinephrine Bitartrate 16 MG TITRATE IV Sodium Chloride 234 ML Perflutren Lipid Microsphere DIRECTED ONCE PRN IV Sodium Chloride DIRECTED ONCE PRN IV Sodium Chloride 5 ML ONCE PRN IV Fentanyl Citrate 50 ML TITRATE IV (CKD) Azithromycin 500 MG DAILY IV Sodium Chloride 250 ML Cefepime HCl 1 GM Q12HR IV Sterile Water 10 ML Famotidine 20 MG DAILY PO Morphine Sulfate 2 MG Q4H PRN PRN IV Heparin Sodium (Porcine) 5,000 UNIT Q12HR SUBQ Mupirocin 1 APPLIC BID NASAL (DC) Hydrocodone Bitart/Acetaminophen 1 TAB Q6H PRN P RN PO Esmolol HCl 250 ML TITRATE IV (CKD) Nicardipine HCl 250 ML TITRATE IV (DC) Nutrition asessment: The data set between the solid lines has been im ported from the dietitian's assessment. Any exceptions have been noted under Provider comments. BMI Calculated: 30.7 Nutrition related diagnosis: Obese Nutrition diagnosis details: BMI 30-39.9 Nutrition problem: Inadequate oral intake Nutrition etiology: RESPIRATORY STATUS Nutrition signs and symptoms: PT SEDATED ON MECH ANICAL VENT,, NPO, NEED FOR ENTERAL NUTRITIO, N Nutrition prescription: -REC OMMEND TF REGIMEN OF JEVITY 1.5 TO INCREASE TO GOAL RATE OF 50ML/HR TO PROVIDE 1 800 KCAL, 76GM PRO, 912ML FREE WATER -RECOMMEND 24GM HEALTHY SHOT TID -RECOMMNED WATER FLUSH OF 30ML EVERY 4 HRS W/IVF'S -RECOMMNED WATER FLUSH OF 30ML/HR WITH NO IVF'S -RD TO F/U PER PROTOCOL Dietitian name: Marzena Juarez RDN, YECENIA Assessment completed: 06/22/20 Provider comments on imported dietitian assessme nt: Physical Exam Head/Eyes: atraumatic, normocephalic ENT: moist mucosal membranes Neck: non-tender, supple/no meningismus, no brui t / NL carotids, no masses or swelling Cardiovascular: irregular rate and rhythm, murmu r Respiratory: decreased breath sounds, intubated/ mech vent Abdomen: non-tender, normal bowel sounds, soft Neuro/RADIOTELEGRAPHIST: lethargic, came o ff versed sedation yesterday intubated does not open eyes or follow commands Diagnosis, Assessment Plan Free Text A P: Problem List/A P: 1. Hypertensive urgency 2. Noncompliance 3. Generalized headaches 4. Viral illness 5. Prostatitis 6. Hypertensive urgency 7. Acute prostatitis with hematuria 8. High blood pressure 9. Uncontrolled hypertension 10. Testicular pain, right 11. Abdominal pain 12. Back pain 13. Hypertension 14. Medication refill 15. Asthma 16. Noncompliance w/medication treatment due to intermit use of medication 17. Acute asthma 18. Acute asthma exacerbation 19. Asthma exacerbation 20. New onset of congestive heart failure 21. Shortness of breath 22. Abnormal kidney function 23. CHF exacerbation 24. JENNIFER (acute kidney injury) 25. Hypokalemia 26. CHF (congestive heart failure) 27. Left against medical advice 28. Chest pain 29. Heart failure 30. Hypertensive emergency 31. Cholecystitis 32. Pulmonary edema 33. Elevated troponin 34. Aortic dissection 35. Dental abscess 36. COVID-19 37. Multifocal neurological deficit 38. Multifocal pneumonia 39. Accelerated essential hypertension Free Text A P: #Lethargy AMS- Likely 2/2 metabolic encephalopat hy -most likely 2/2 metabolic encephalopathy -s/p code yesterday, successfully rescucitated -BUN 64 (downtrending from 73 yesterday) Cr 2.4 today -CT brain on 06/21 showed no acute intracranial hemorrhage, with only mild chronic microvascular ischem ic injuries. Also, there are faint calcifications in the bilateral basal ganglia, but the CT brainn is essentially unchanged since . -CT head repeat ordered for new onset failure to withdraw from stimuli in the lower extremities -Fentanyl stopped, propofol started -EEG is still pending -No need for brain MRI for now -Continue with observation -D/w nurse -Will continue to follow closely Discussed with the attending neurologist, Dr. Chino . still pending eeg William Chino 06/24/20 1432: Diagnosis, Assessment Plan Free Text A P: d/w staff- not moving both l egs much; otherwise, agree with above note/ plan by resident Electronically Signed by Tai Haynes MD R1 on 1 at 1157 at 1433 RPT #:[id number] END OF REPORT 2020-06-24 10:38:00-00:[address] [facility] ([facility]) Nephrology Progress Note REPORT#:[id number] REPORT STATUS: Signed DATE:06/24/20 TIME: 1038 PATIENT: JORGE GOINS UNIT #: [id number] ROOM/BED: [address] : [birth year] AGE: 34 SEX: M ATTEND: Luis M Olmedo MD ADM AUTHOR: Giancarlo Izaguirre MD R2 * ALL edits or amendments must be made on the [employer] document * Subjective Comments: events noted Review of Systems Unable to obtain due to: AMS Objective General VS/I O: Vital Signs: Date Time Temp Pulse Resp B/P B/P Pulse O2 O2 F low FiO2 Mean Ox Delivery Rate 06/24 0846 80 99 28 06/24 0630 74 21 118/65 83 99 06/24 0615 72 34 125/62 82 95 06/24 0600 73 37 120/62 83 99 06/24 0545 74 34 121/63 84 99 06/24 0530 73 41 122/64 85 100 06/24 0515 72 30 120/66 85 100 06/24 0500 72 21 123/65 86 100 06/24 0445 70 26 118/67 85 100 06/24 0431 68 100 28 06/24 0430 68 22 121/59 82 97 06/24 0415 67 23 118/63 84 98 06/24 0400 98.8 06/24 0400 68 7 127/68 90 99 06/24 0345 67 5 125/65 89 99 06/24 0330 67 20 121/65 86 98 06/24 0315 68 12 122/65 86 99 06/24 0300 68 10 121/61 84 94 06/24 0253 69 0 122/66 86 98 06/24 0245 69 0 98 06/24 0230 70 9 97 06/24 0215 72 10 96 06/24 0200 72 0 96 06/24 0145 74 10 95 06/24 0130 72 44 06/24 0115 71 31 120/59 83 98 06/24 0100 70 6 127/61 86 97 06/24 0048 70 98 28 06/24 0045 71 0 128/61 87 98 06/24 0030 71 3 130/62 88 97 06/24 0015 71 1 127/61 87 100 06/24 0000 98.3 06/24 0000 70 8 126/61 86 97 06/23 2345 72 14 127/62 87 98 06/23 2330 72 9 129/65 90 100 06/23 2315 74 15 122/62 85 99 06/23 2300 75 21 122/61 86 100 06/23 2245 74 12 115/58 80 99 06/23 2230 73 4 129/61 86 100 06/23 2215 74 18 125/58 84 99 06/23 2211 100 Ventilator 28 06/23 2211 74 100 28 06/23 2200 74 25 126/61 85 100 06/23 2145 75 26 127/63 86 100 06/23 2130 76 26 124/61 85 100 06/23 2115 77 33 123/61 84 100 06/23 2100 81 22 130/61 88 100 06/235 79 34 121/59 83 100 06/23 2030 76 37 119/59 82 96 06/23 2015 79 34 119/60 82 100 06/23 2000 100.2 06/23 2000 28 06/23 2000 Ventilator 28 06/23 2000 79 32 123/61 83 100 06/23 1945 75 22 123/61 84 100 06/23 1931 79 23 121/59 82 97 06/23 1930 77 25 100 06/23 1915 75 14 121/62 84 100 06/23 1900 75 6 121/60 83 100 06/23 1850 75 14 100 06/23 1845 75 17 120/59 83 100 06/23 1835 75 19 100 06/23 1815 76 16 125/60 86 100 06/23 1613 77 6 100 06/23 1600 100.0 06/23 1600 77 16 125/62 85 100 06/23 1554 78 100 28 06/23 1545 79 16 123/62 85 100 06/23 1530 80 36 115/60 79 100 06/23 1515 82 38 113/58 77 100 06/23 1500 83 17 107/54 77 97 06/23 1445 90 23 126/61 87 97 06/23 1431 87 31 120/61 87 95 06/23 1430 87 20 96 06/23 1415 90 31 119/57 80 99 06/23 1400 88 37 113/56 78 99 06/23 1345 82 20 109/58 74 100 06/23 1330 84 24 109/55 76 100 06/23 1315 85 2 115/59 80 100 06/23 1309 86 6 100 06/23 1300 85 10 129/63 88 100 06/23 1215 80 0 125/62 85 100 06/23 1208 81 100 28 06/23 1200 99.1 06/23 1107 80 0 100 06/23 1100 81 0 100 06/23 1045 82 2 100 24 hour I O ending at 0700: 06/24 0700 06/23 1900 Intake Total 1932.00 1852.00 Output Total 1775 2200 Balance 157.00 -348.00 Intake, IV 972.00 1241.00 Intake, Tube 960 611 Feeding Output, Stool 100 100 Output, Urine 1675 2100 Medications Active Meds + DC'd Last 24 Hrs Carvedilol 25 MG Q8H PO (UNVr) Nicardipine HCl 250 ML TITRATE IV (UNV) Potassium Bicarbonate/Citric Acid 40 MEQ ONCE ON E FEED-TUBE (DC) Potassium Chloride 40 MEQ ONCE ONE PO (DC) Potassium Bicarbonate/Citric Acid 20 MEQ ONCE ON E PO (DC) Potassium Chloride 100 ML ONCE ONE IV (DC) Potassium Chloride 100 ML ONCE ONE IV (DC) Potassium Bicarbonate/Citric Acid 20 MEQ ONCE ON E FEED-TUBE (DC) Potassium Chloride 100 ML ONCE ONE IV (DC) Carvedilol 25 MG BID MEALS PO (DCr) Furosemide 40 MG ONCE ONE IV (DC) Dexmedetomidine HCl 400 MCG TITRATE IV Sodium Chloride 96 ML Dextrose/Water 1,000 ML .[id number] IV (DC) Dextrose/Water 25 ML ASDIR PRN IV Glucagon 1 MG ASDIR PRN IM Insulin Human Lispro LOW DOSE SCALE ASDIR SUBQ Sterile Water 1 ML ASDIR PRN IM Propofol 100 ML TITRATE IV (CKD) Midazolam HCl 100 ML TITRATE IV (CKD) Epinephrine 8 MG TITRATE IV (CKD) Sodium Chloride 242 ML Norepinephrine Bitartrate 16 MG TITRATE IV Sodium Chloride 234 ML Perflutren Lipid Microsphere DIRECTED ONCE PRN IV Sodium Chloride DIRECTED ONCE PRN IV Sodium Chloride 5 ML ONCE PRN IV Fentanyl Citrate 50 ML TITRATE IV (CKD) Azithromycin 500 MG DAILY IV Sodium Chloride 250 ML Cefepime HCl 1 GM Q12HR IV Sterile Water 10 ML Famotidine 20 MG DAILY PO Morphine Sulfate 2 MG Q4H PRN PRN IV Heparin Sodium (Porcine) 5,000 UNIT Q12HR SUBQ Mupirocin 1 APPLIC BID NASAL (DC) Hydrocodone Bitart/Acetaminophen 1 TAB Q6H PRN P RN PO Carvedilol 25 MG BID MEALS PO (DC) Esmolol HCl 250 ML TITRATE IV (CKD) Nicardipine HCl 250 ML TITRATE IV (DC) Physical Exam General appearance: obese, respiratory support Head/eyes: normal conjunctiva/sclera Neck: no JVD Respiratory: symmetric expansion Genitourinary: zuñiga, urine Musculoskeletal: normal inspection Neuro/RADIOTELEGRAPHIST: SEDATED Hemodialysis access: Type: vascath Psychiatry: unable to evaluate Results Findings/Data: Laboratory Tests 06/24 0450 Blood Gas Puncture Site R Radial ABG pH (7.35 - 7.45 pH units) 7.43 ABG pCO2 (35 - 48 mmHg) 34.8 L ABG pO2 (83 - 108 mmHg) 88.7 ABG PO2/FiO2 Ratio (mm/Hg) 316.78 ABG HCO3 (21 - 28 mmol/L) 23.1 ABG Total CO2 (22 - 29 mmol/L) 24.1 ABG O2 Sat Calc/Denise (94 - 98 %) 97.2 ABG Base Excess (-2 - 3 mmol/L) -0.8 Emmanuel Test N/A Respiration Rate (12 - 20 /MIN) 0 L O2 Delivery Device Adult Vent Vent Mode CPAP/PS FiO2 (%) 28 Pressure Support (cmH2O) 12 Instrument (Specimen Descript) Arterial Laboratory Tests 06/24 06/24 06/23 06/23 06/23 0629 0255 2331 2315 1949 Chemistry Sodium (137 - 145 mmol/L) 138 Potassium (3.4 - 5.0 mmol/L) 3.3 L 3.2 L 3.2 L Chloride (98 - 107 mmol/L) 105 Carbon Dioxide (22 - 30 mmol/L) 26 BUN (9 - 20 mg/dL) 61 H Creatinine (0.7 - 1.3 mg/dL) 2.4 H Glomerular Filtr Rate (>60) 40 L Glucose (74 - 106 mg/dL) 148 H POC Glucose (74 - 106 MG/DL) 108 H 71 L Calcium (8.4 - 10.2 mg/dL) 7.3 L 06/23 06/23 06/23 1723 1715 1247 Chemistry Potassium (3.4 - 5.0 mmol/L) 3.0 L POC Glucose (74 - 106 MG/DL) 101 91 Laboratory Tests 06/24 0255 Hematology WBC (5.0 - 12.0 x10 3/uL) 9.3 RBC (4.70 - 6.10 x10 6/uL) 3.77 L Hgb (14.0 - 18.0 g/dL) 10.8 L Hct (37.0 - 49.0 %) 34.6 L MCV (80 - 94 fL) 92 MCH (27 - 31 pg) 28.6 MCHC (33 - 37 g/dL) 31.2 L RDW (11.5 - 15.5 %) 16.1 H Plt Count (130 - 400 x10 3/uL) 215 MPV (9.4 - 16.4 fL) 10.9 Neut % (Auto) (43 - 65 %) 82.4 H Lymph % (Auto) (20.5 - 45.5 %) 7.8 L Citrus % (Auto) (5.5 - 11.7 %) 8.7 Eos % (Auto) (0.9 - 2.9 %) 0.5 L Baso % (Auto) (0.2 - 1.0 %) 0.1 L Neut # (Auto) (2.2 - 4.8 x10 3/uL) 7.68 H Lymph # (Auto) (1.3 - 2.9 x10 3/uL) 0.73 L Citrus # (Auto) (0.3 - 0.8 x10 3/uL) 0.81 H Eos # (Auto) (0.0 - 0.2 x10 3/uL) 0.05 Baso # (Auto) (0.0 - 0.1 x10 3/uL) 0.01 Immature Gran % (0.0 - 2.0 %) 0.5 Nucleated RBC % (0 - 1.0 %) 0.0 Radiology data: Recent Impressions: RADIOLOGY - XR CHEST 1 V 06/24 9510 Report Impression - Status: SIGNED Entered: 06/24/2020 0711 IMPRESSION: Lines and tubes as above. Impression By: [email or web address] - Denny Mohamud MD Diagnosis, Assessment Plan Free Text A P: JENNIFER hypotension AAA lactic acidosis severe metabolic acidosis Cr stable/improved Acidosis resolved UOP adequate HD catheter placed; if HD needed, will order will monitor Electronically Signed by Giancarlo Izaguirre MD R2 on at 1538 RPT #:[id number] END OF REPORT 2020-06-24 10:38:00-00:[address] [facility] ([facility]) Nephrology Progress Note REPORT#:[id number] REPORT STATUS: Signed DATE:06/24/20 TIME: 1038 PATIENT: JORGE GOINS UNIT #: [id number] [address] : [birth year] AGE: 34 SEX: M ATTEND: Luis M Olmedo MD ADM AUTHOR: Giancarlo Izaguirre MD R2 * ALL edits or amendments must be made on the [employer] document * Subjective Comments: events noted Review of Systems Unable to obtain due to: AMS Objective General VS/I O: Vital Signs: Date Time Temp Pulse Resp B/P B/P Pulse O2 O2 F low FiO2 Mean Ox Delivery Rate 06/24 0846 80 99 28 06/24 0630 74 21 118/65 83 99 06/24 0615 72 34 125/62 82 95 06/24 0600 73 37 120/62 83 99 06/24 0545 74 34 121/63 84 99 06/24 0530 73 41 122/64 85 100 06/24 0515 72 30 120/66 85 100 06/24 0500 72 21 123/65 86 100 06/24 0445 70 26 118/67 85 100 06/24 0431 68 100 28 06/24 0430 68 22 121/59 82 97 06/24 0415 67 23 118/63 84 98 06/24 0400 98.8 06/24 0400 68 7 127/68 90 99 06/24 0345 67 5 125/65 89 99 06/24 0330 67 20 121/65 86 98 06/24 0315 68 12 122/65 86 99 06/24 0300 68 10 121/61 84 94 06/24 0253 69 0 122/66 86 98 06/24 0245 69 0 98 06/24 0230 70 9 97 06/24 0215 72 10 96 06/24 0200 72 0 96 06/24 0145 74 10 95 06/24 0130 72 44 06/24 0115 71 31 120/59 83 98 / 0100 70 6 127/61 86 97 06/24 0048 70 98 28 06/24 0045 71 0 128/61 87 98 06/24 0030 71 3 130/62 88 97 06/24 0015 71 1 127/61 87 100 06/24 0000 98.3 06/24 0000 70 8 126/61 86 97 06/23 2345 72 14 127/62 87 98 06/23 2330 72 9 129/65 90 100 06/23 2315 74 15 122/62 85 99 06/23 2300 75 21 122/61 86 100 06/23 2245 74 12 115/58 80 99 06/23 2230 73 4 129/61 86 100 06/23 2215 74 18 125/58 84 99 06/23 2211 100 Ventilator 28 06/23 2211 74 100 28 06/23 2200 74 25 126/61 85 100 06/23 2145 75 26 127/63 86 100 06/23 2130 76 26 124/61 85 100 06/23 2115 77 33 123/61 84 100 06/23 2100 81 22 130/61 88 100 06/23 2045 79 34 121/59 83 100 06/23 2030 76 37 119/59 82 96 06/23 2015 79 34 119/60 82 100 06/23 2000 100.2 06/23 2000 28 06/23 2000 Ventilator 28 06/23 2000 79 32 123/61 83 100 06/23 1945 75 22 123/61 84 100 06/23 1931 79 23 121/59 82 97 06/23 1930 77 25 100 06/23 1915 75 14 121/62 84 100 06/23 1900 75 6 121/60 83 100 06/23 1850 75 14 100 06/23 1845 75 17 120/59 83 100 06/23 1835 75 19 100 06/23 1815 76 16 125/60 86 100 06/23 1613 77 6 100 06/23 1600 100.0 06/23 1600 77 16 125/62 85 100 06/23 1554 78 100 06/23 1545 79 16 123/62 85 100 06/23 1530 80 36 115/60 79 100 06/23 1515 82 38 113/58 77 100 06/23 1500 83 17 107/54 77 97 06/23 1445 90 23 126/61 87 97 06/23 1431 87 31 120/61 87 95 06/23 1430 87 20 96 06/23 1415 90 31 119/57 80 99 06/23 1400 88 37 113/56 78 99 06/23 1345 82 20 109/58 74 100 06/23 1330 84 24 109/55 76 100 06/23 1315 85 2 115/59 80 100 06/23 1309 86 6 100 06/23 1300 85 10 129/63 88 100 06/23 1215 80 0 125/62 85 100 06/23 1208 81 100 28 06/23 1200 99.1 06/23 1107 80 0 100 06/23 1100 81 0 100 06/23 1045 82 2 100 24 hour I O ending at 0700: 06/24 0700 06/23 1900 Intake Total 1932.00 1852.00 Output Total 1775 2200 Balance 157.00 -348.00 Intake, IV 972.00 1241.00 Intake, Tube 960 611 Feeding Output, Stool 100 100 Output, Urine 1675 2100 Medications Active Meds + DC'd Last 24 Hrs Carvedilol 25 MG Q8H PO (UNVr) Nicardipine HCl 250 ML TITRATE IV (UNV) Potassium Bicarbonate/Citric Acid 40 MEQ ONCE ON E FEED-TUBE (DC) Potassium Chloride 40 MEQ ONCE ONE PO (DC) Potassium Bicarbonate/Citric Acid 20 MEQ ONCE ON E PO (DC) Potassium Chloride 100 ML ONCE ONE IV (DC) Potassium Chloride 100 ML ONCE ONE IV (DC) Potassium Bicarbonate/Citric Acid 20 MEQ ONCE ON E FEED-TUBE (DC) Potassium Chloride 100 ML ONCE ONE IV (DC) Carvedilol 25 MG BID MEALS PO (DCr) Furosemide 40 MG ONCE ONE IV (DC) Dexmedetomidine HCl 400 MCG TITRATE IV Sodium Chloride 96 ML Dextrose/Water 1,000 ML .[id number] IV (DC) Dextrose/Water 25 ML ASDIR PRN IV Glucagon 1 MG ASDIR PRN IM Insulin Human Lispro LOW DOSE SCALE ASDIR SUBQ Sterile Water 1 ML ASDIR PRN IM Propofol 100 ML TITRATE IV (CKD) Midazolam HCl 100 ML TITRATE IV (CKD) Epinephrine 8 MG TITRATE IV (CKD) Sodium Chloride 242 ML Norepinephrine Bitartrate 16 MG TITRATE IV Sodium Chloride 234 ML Perflutren Lipid Microsphere DIRECTED ONCE PRN IV Sodium Chloride DIRECTED ONCE PRN IV Sodium Chloride 5 ML ONCE PRN IV Fentanyl Citrate 50 ML TITRATE IV (CKD) Azithromycin 500 MG DAILY IV Sodium Chloride 250 ML Cefepime HCl 1 GM Q12HR IV Sterile Water 10 ML Famotidine 20 MG DAILY PO Morphine Sulfate 2 MG Q4H PRN PRN IV Heparin Sodium (Porcine) 5,000 UNIT Q12HR SUBQ Mupirocin 1 APPLIC BID NASAL (DC) Hydrocodone Bitart/Acetaminophen 1 TAB Q6H PRN P RN PO Carvedilol 25 MG BID MEALS PO (DC) Esmolol HCl 250 ML TITRATE IV (CKD) Nicardipine HCl 250 ML TITRATE IV (DC) Physical Exam General appearance: obese, respiratory support Head/eyes: normal conjunctiva/sclera Neck: no JVD Respiratory: symmetric expansion Genitourinary: zuñiga, urine Musculoskeletal: normal inspection Neuro/RADIOTELEGRAPHIST: SEDATED Hemodialysis access: Type: vascath Psychiatry: unable to evaluate Results Findings/Data: Laboratory Tests 06/24 0450 Blood Gas Puncture Site R Radial ABG pH (7.35 - 7.45 pH units) 7.43 ABG pCO2 (35 - 48 mmHg) 34.8 L ABG pO2 (83 - 108 mmHg) 88.7 ABG PO2/FiO2 Ratio (mm/Hg) 316.78 ABG HCO3 (21 - 28 mmol/L) 23.1 ABG Total CO2 (22 - 29 mmol/L) 24.1 ABG O2 Sat Calc/Denise (94 - 98 %) 97.2 ABG Base Excess (-2 - 3 mmol/L) -0.8 Emmanuel Test N/A Respiration Rate (12 - 20 /MIN) 0 L O2 Delivery Device Adult Vent Vent Mode CPAP/PS FiO2 (%) 28 Pressure Support (cmH2O) 12 Instrument (Specimen Descript) Arterial Laboratory Tests 06/24 06/24 06/23 06/23 06/23 0629 0255 2331 2315 1949 Chemistry Sodium (137 - 145 mmol/L) 138 Potassium (3.4 - 5.0 mmol/L) 3.3 L 3.2 L 3.2 L Chloride (98 - 107 mmol/L) 105 Carbon Dioxide (22 - 30 mmol/L) 26 BUN (9 - 20 mg/dL) 61 H Creatinine (0.7 - 1.3 mg/dL) 2.4 H Glomerular Filtr Rate (>60) 40 L Glucose (74 - 106 mg/dL) 148 H POC Glucose (74 - 106 MG/DL) 108 H 71 L Calcium (8.4 - 10.2 mg/dL) 7.3 L 06/23 06/23 06/23 1723 1715 1247 Chemistry Potassium (3.4 - 5.0 mmol/L) 3.0 L POC Glucose (74 - 106 MG/DL) 101 91 Laboratory Tests 06/24 0255 Hematology WBC (5.0 - 12.0 x10 3/uL) 9.3 RBC (4.70 - 6.10 x10 6/uL) 3.77 L Hgb (14.0 - 18.0 g/dL) 10.8 L Hct (37.0 - 49.0 %) 34.6 L MCV (80 - 94 fL) 92 MCH (27 - 31 pg) 28.6 MCHC (33 - 37 g/dL) 31.2 L RDW (11.5 - 15.5 %) 16.1 H Plt Count (130 - 400 x10 3/uL) 215 MPV (9.4 - 16.4 fL) 10.9 Neut % (Auto) (43 - 65 %) 82.4 H Lymph % (Auto) (20.5 - 45.5 %) 7.8 L Citrus % (Auto) (5.5 - 11.7 %) 8.7 Eos % (Auto) (0.9 - 2.9 %) 0.5 L Baso % (Auto) (0.2 - 1.0 %) 0.1 L Neut # (Auto) (2.2 - 4.8 x10 3/uL) 7.68 H Lymph # (Auto) (1.3 - 2.9 x10 3/uL) 0.73 L Citrus # (Auto) (0.3 - 0.8 x10 3/uL) 0.81 H Eos # (Auto) (0.0 - 0.2 x10 3/uL) 0.05 Baso # (Auto) (0.0 - 0.1 x10 3/uL) 0.01 Immature Gran % (0.0 - 2.0 %) 0.5 Nucleated RBC % (0 - 1.0 %) 0.0 Radiology data: Recent Impressions: RADIOLOGY - XR CHEST 1 V 06/24 8440 Report Impression - Status: SIGNED Entered: 06/24/2020 0798 IMPRESSION: Lines and tubes as above. Impression By: [email or web address] - Denny Mohamud MD Diagnosis, Assessment Plan Free Text A P: JENNIFER hypotension AAA lactic acidosis severe metabolic acidosis Cr stable/improved Acidosis resolved UOP adequate HD catheter placed; if HD needed, will order will monitor Electronically Signed by Giancarlo Izaguirre MD R2 on at 1538 at 1020 RPT #:[id number] END OF REPORT 2020-06-23 11:42:00-00:[address] [facility] ([facility]) Nephrology Progress Note REPORT#:[id number] REPORT STATUS: Signed DATE:06/23/20 TIME: 1142 PATIENT: JORGE GOINS UNIT #: [id number] ROOM/BED: [address] : [birth year] AGE: 34 SEX: M ATTEND: Luis M Olmedo MD ADM AUTHOR: Ceferino De La Garza MD * ALL edits or amendments must be made on the [employer] document * Subjective Comments: Events noted Objective General VS/I O: Vital Signs: Date Time Temp Pulse Resp B/P B/P Pulse O2 O2 F low FiO2 Mean Ox Delivery Rate 06/23 1107 80 0 100 06/23 1100 81 0 100 06/23 1045 82 2 100 06/23 1030 83 0 125/63 86 100 06/23 1015 84 0 100 06/23 1000 83 0 100 06/23 0945 83 0 100 06/23 0930 80 0 122/64 85 100 06/23 0915 83 19 125/63 86 100 06/23 0900 84 22 119/62 84 100 06/23 0845 83 20 126/65 89 100 06/23 0830 83 24 129/67 89 100 06/23 0827 100 Ventilator 28 06/23 0827 81 100 28 06/23 0815 83 3 126/64 89 100 06/23 0800 37.2 06/23 0800 Ventilator 06/23 0800 83 12 123/65 86 100 06/23 0745 83 9 124/65 88 100 06/23 0730 83 0 118/64 84 100 06/23 0715 83 0 120/63 86 100 06/23 0700 84 3 118/62 84 100 06/23 0600 84 20 121/61 84 100 06/23 0545 85 21 113/58 78 100 06/23 0530 87 20 114/59 79 100 06/23 0515 90 23 104/56 80 100 12/29 0501 86 26 119/56 81 99 06/23 0445 88 21 132/67 90 100 06/23 0442 91 24 126/66 89 100 06/23 0430 91 24 135/70 94 100 06/23 0425 90 100 28 06/23 0415 91 23 138/70 95 100 06/23 0400 37.4 Ventilator 35 06/23 0400 88 20 133/66 93 100 06/23 0345 89 20 134/69 93 100 06/23 0336 90 19 131/69 92 100 06/23 0330 90 20 138/69 96 100 06/23 0315 90 20 142/71 98 100 06/23 0300 93 25 136/71 95 100 06/23 0245 87 19 139/70 97 100 06/23 0230 87 19 143/71 98 100 06/23 0215 88 20 136/71 95 100 06/23 0200 89 20 140/71 97 100 06/23 0147 88 100 30 06/23 0145 89 20 134/71 94 100 06/23 0130 90 21 129/72 93 100 06/23 0115 93 26 129/73 95 100 06/23 0100 91 22 127/62 88 100 06/23 0045 90 20 124/56 85 99 06/23 0030 95 26 123/69 90 100 06/23 0028 92 20 131/70 93 100 06/23 0015 93 22 100 06/23 0000 37.9 Ventilator 35 06/23 0000 94 22 120/68 89 100 06/22 2345 93 22 119/69 88 100 06/22 2330 92 21 122/68 89 100 06/22 2315 92 19 124/69 89 100 06/22 2300 92 21 119/70 88 100 06/22 2245 92 19 119/69 88 100 06/22 2230 91 20 120/71 89 100 06/22 2215 91 20 121/70 89 100 06/22 2200 90 20 126/70 91 100 06/22 2145 90 19 120/70 90 100 06/22 2134 100 Ventilator 30 06/22 2134 91 100 30 06/22 2130 91 18 119/68 88 100 06/22 2115 91 19 121/67 87 100 06/22 2100 91 20 115/66 85 100 06/22 2045 91 21 125/70 89 100 06/22 2030 89 18 132/73 93 100 06/22 2015 88 17 132/73 95 100 06/22 2000 36.8 Ventilator 35 06/22 2000 Ventilator 35 06/22 2000 89 18 124/74 93 100 06/22 1945 91 23 129/74 96 100 06/22 1930 87 17 124/69 90 100 06/22 1922 86 18 122/70 89 100 06/22 1915 86 17 121/70 90 100 06/22 1900 85 17 120/70 90 100 06/22 1830 85 17 121/69 89 100 06/22 1815 84 17 119/69 89 100 06/22 1800 84 19 119/69 89 100 06/22 1745 84 119/68 89 100 06/22 1730 84 119/68 88 100 06/22 1715 84 117/68 88 100 06/22 1712 85 100 30 06/22 1700 83 115/66 86 100 06/22 1645 83 116/67 87 100 06/22 1630 83 116/67 86 100 06/22 1615 83 16 118/67 87 100 06/22 1600 83 16 114/66 85 100 06/22 1545 83 17 113/66 85 100 06/22 1530 85 11 111/65 81 100 06/22 1515 82 19 113/65 84 100 06/22 1504 36.6 06/22 1500 82 19 113/66 84 100 06/22 1445 82 18 108/64 82 100 06/22 1436 82 19 155/76 109 100 06/22 1430 82 14 108/63 80 100 06/22 1415 82 17 109/65 82 100 06/22 1409 83 100 06/22 1400 83 18 106/64 79 100 06/22 1345 86 16 101/62 77 100 06/22 1330 82 11 106/66 80 100 06/22 1315 81 19 110/68 83 100 06/22 1301 83 20 100 06/22 1300 83 14 115/70 87 100 06/22 1245 79 11 118/69 89 100 06/22 1230 79 13 118/68 87 100 06/22 1215 78 14 118/70 87 100 06/22 1200 36.6 06/22 1200 78 19 118/71 90 100 06/22 1145 78 15 115/66 85 98 06/22 1144 78 115/66 86 98 24 hour I O ending at 0700: 06/23 0700 06/22 1900 Intake Total 1789.50 864.00 Output Total 900 750 Balance 889.50 114.00 Intake, Free 130 Water Intake, IV 1059.50 828.00 Intake, Tube 600 36 Feeding Number 1 Bowel Movements Output, Urine 900 750 Patient 99.9 kg Weight Weight Bed scale Measurement Method Medications Active Meds + DC'd Last 24 Hrs Furosemide 40 MG ONCE ONE IV (PEND) Dexmedetomidine HCl 400 MCG TITRATE IV Sodium Chloride 96 ML Potassium Chloride 100 ML ONCE ONE IV (DC) Dextrose/Water 1,000 ML .[id number] IV Dextrose/Water 25 ML ASDIR PRN IV Glucagon 1 MG ASDIR PRN IM Insulin Human Lispro LOW DOSE SCALE ASDIR SUBQ Sterile Water 1 ML ASDIR PRN IM Propofol 100 ML TITRATE IV (CKD) Midazolam HCl 100 ML TITRATE IV (CKD) Epinephrine 8 MG TITRATE IV (CKD) Sodium Chloride 242 ML Norepinephrine Bitartrate 16 MG TITRATE IV Sodium Chloride 234 ML Perflutren Lipid Microsphere DIRECTED ONCE PRN IV Sodium Chloride DIRECTED ONCE PRN IV Sodium Chloride 5 ML ONCE PRN IV Fentanyl Citrate 50 ML TITRATE IV (CKD) Propofol 100 ML .Q24H ONE IV (DC) Azithromycin 500 MG DAILY IV Sodium Chloride 250 ML Cefepime HCl 1 GM Q12HR IV Sterile Water 10 ML Famotidine 20 MG DAILY PO Morphine Sulfate 2 MG Q4H PRN PRN IV Heparin Sodium (Porcine) 5,000 UNIT Q12HR SUBQ Mupirocin 1 APPLIC BID NASAL Hydrocodone Bitart/Acetaminophen 1 TAB Q6H PRN P RN PO Carvedilol 25 MG BID MEALS PO Esmolol HCl 250 ML TITRATE IV (CKD) Nicardipine HCl 250 ML TITRATE IV Physical Exam Head/eyes: normal conjunctiva/sclera Neck: no JVD Respiratory: symmetric expansion Genitourinary: zuñiga, urine Musculoskeletal: normal inspection Neuro/RADIOTELEGRAPHIST: SEDATED Hemodialysis access: Type: vascath Results Findings/Data: Laboratory Tests 06/23 201 Blood Gas Puncture Site R Radial ABG pH (7.35 - 7.45 pH units) 7.47 H ABG pCO2 (35 - 48 mmHg) 29.3 *L ABG pO2 (83 - 108 mmHg) 118.3 H ABG PO2/FiO2 Ratio (mm/Hg) 394.33 ABG HCO3 (21 - 28 mmol/L) 21.1 ABG Total CO2 (22 - 29 mmol/L) 22.0 ABG O2 Sat Calc/Denise (94 - 98 %) 98.9 H ABG Base Excess (-2 - 3 mmol/L) -1.7 Emmanuel Test N/A Respiration Rate (12 - 20 /MIN) 16 O2 Delivery Device Adult Vent Vent Mode ASSIST CONTROL FiO2 (%) 30 Instrument (Specimen Descript) Arterial Laboratory Tests 06/23 06/23 06/23 06/22 0856 0331 0300 1147 Chemistry Sodium (137 - 145 mmol/L) 137 Potassium (3.4 - 5.0 mmol/L) 3.2 L 3.3 L Chloride (98 - 107 mmol/L) 104 Carbon Dioxide (22 - 30 mmol/L) 24 BUN (9 - 20 mg/dL) 73 H Creatinine (0.7 - 1.3 mg/dL) 3.3 H Glomerular Filtr Rate (>60) 28 L Glucose (74 - 106 mg/dL) 117 H POC Glucose (74 - 106 MG/DL) 86 56 L Calcium (8.4 - 10.2 mg/dL) 7.1 L Phosphorus (2.5 - 4.5 mg/dL) 4.6 H Magnesium (1.6 - 2.3 mg/dL) 2.1 Cortisol AM Sample (ug/dL) 44.2 Laboratory Tests 06/23 0300 Hematology WBC (5.0 - 12.0 x10 3/uL) 10.7 RBC (4.70 - 6.10 x10 6/uL) 3.93 L Hgb (14.0 - 18.0 g/dL) 11.5 L Hct (37.0 - 49.0 %) 35.4 L MCV (80 - 94 fL) 90 MCH (27 - 31 pg) 29.3 MCHC (33 - 37 g/dL) 32.5 L RDW (11.5 - 15.5 %) 16.5 H Plt Count (130 - 400 x10 3/uL) 224 MPV (9.4 - 16.4 fL) 10.6 Neut % (Auto) (43 - 65 %) 86.7 H Lymph % (Auto) (20.5 - 45.5 %) 5.0 L Citrus % (Auto) (5.5 - 11.7 %) 7.6 Eos % (Auto) (0.9 - 2.9 %) 0.1 L Baso % (Auto) (0.2 - 1.0 %) 0.1 L Neut # (Auto) (2.2 - 4.8 x10 3/uL) 9.28 H Lymph # (Auto) (1.3 - 2.9 x10 3/uL) 0.53 L Citrus # (Auto) (0.3 - 0.8 x10 3/uL) 0.81 H Eos # (Auto) (0.0 - 0.2 x10 3/uL) 0.01 Baso # (Auto) (0.0 - 0.1 x10 3/uL) 0.01 Immature Gran % (0.0 - 2.0 %) 0.5 Nucleated RBC % (0 - 1.0 %) 0.2 Radiology data: Recent Impressions: RADIOLOGY - XR CHEST 1 V 06/23 0405 Report Impression - Status: SIGNED Entered: 06/23/2020 0712 IMPRESSION: Stable examination. Impression By: [email or web address] - Denny Mohamud MD Diagnosis, Assessment Plan Free Text A P: JENNIFER hypotension AAA lactic acidosis severe metabolic acidosis CR STABLE ACIDOSIS RESOLVED F/U IMAGING UOP GOOD HD CATHETER PLACED YESTERDAY. IF HD NEEDED WILL ORDER MONITOR FOR NOW at 1019 RPT #:[id number] END OF REPORT 2020-06-23 11:36:00-00:00 [facility]) Cardiology Progress Note REPORT#:[id number] REPORT STATUS: Signed DATE:06/23/20 TIME: 1136 PATIENT: JORGE GOINS UNIT #: [id number] ROOM/BED: [address] : [birth year] AGE: 34 SEX: M ATTEND: Luis M Olmedo MD ADM AUTHOR: Abhi Ortiz DO * ALL edits or amendments must be made on the el ectronic/computer document * Subjective Free Text Subj Notes Free Text Subj Notes: off pressors and now on card gerardo drip. Bp creeping up. May do weaning trial later Objective General VS/I O: 24 hour I O ending at 0700: 06/23 0700 06/22 1900 Intake Total 1789.50 864.00 Output Total 900 750 Balance 889.50 114.00 Intake, Free 130 Water Intake, IV 1059.50 828.00 Intake, Tube 600 36 Feeding Number 1 Bowel Movements Output, Urine 900 750 Patient 99.9 kg Weight Weight Bed scale Measurement Method Vital Signs: Date Time Temp Pulse Resp B/P B/P Pulse O2 O2 F low FiO2 Mean Ox Delivery Rate 06/23 1107 80 0 100 06/23 1100 81 0 100 06/23 1045 82 2 100 06/23 1030 83 0 125/63 86 100 06/23 1015 84 0 100 06/23 1000 83 0 100 06/23 0945 83 0 100 06/23 0930 80 0 122/64 85 100 06/23 0915 83 19 125/63 86 100 06/23 0900 84 22 119/62 84 100 06/23 0845 83 20 126/65 89 100 06/23 0830 83 24 129/67 89 100 06/23 0827 100 Ventilator 06/23 0827 81 100 06/23 0815 83 3 126/64 89 100 06/23 0800 99.0 06/23 0800 Ventilator 06/23 0800 83 12 123/65 86 100 06/23 0745 83 9 124/65 88 100 06/23 0730 83 0 118/64 84 100 06/23 0715 83 0 120/63 86 100 06/23 0700 84 3 118/62 84 100 06/23 0600 84 20 121/61 84 100 06/23 0545 85 21 113/58 78 100 06/23 0530 87 20 114/59 79 100 06/23 0515 90 23 104/56 80 100 06/23 0501 86 26 119/56 81 99 06/23 0445 88 21 132/67 90 100 06/23 0442 91 24 126/66 89 100 06/23 0430 91 24 135/70 94 100 06/23 0425 90 100 28 06/23 0415 91 23 138/70 95 100 06/23 0400 99.3 Ventilator 35 06/23 0400 88 20 133/66 93 100 06/23 0345 89 20 134/69 93 100 06/23 0336 90 19 131/69 92 100 12/29 0330 90 20 138/69 96 100 06/23 0315 90 20 142/71 98 100 06/23 0300 93 25 136/71 95 100 06/23 0245 87 19 139/70 97 100 06/23 0230 87 19 143/71 98 100 06/23 0215 88 20 136/71 95 100 06/23 0200 89 20 140/71 97 100 06/23 0147 88 100 30 06/23 0145 89 20 134/71 94 100 06/23 0130 90 21 129/72 93 100 06/23 0115 93 26 129/73 95 100 06/23 0100 91 22 127/62 88 100 06/23 0045 90 20 124/56 85 99 06/23 0030 95 26 123/69 90 100 06/23 0028 92 20 131/70 93 100 06/23 0015 93 22 100 06/23 0000 100.2 Ventilator 35 06/23 0000 94 22 120/68 89 100 06/22 2345 93 22 119/69 88 100 06/22 2330 92 21 122/68 89 100 06/22 2315 92 19 124/69 89 100 06/22 2300 92 21 119/70 88 100 06/22 2245 92 19 119/69 88 100 06/22 2230 91 20 120/71 89 100 06/22 2215 91 20 121/70 89 100 06/22 2200 90 20 126/70 91 100 06/22 2145 90 19 120/70 90 100 06/22 2134 100 Ventilator 30 06/22 2134 91 100 30 06/22 2130 91 18 119/68 88 100 06/22 2115 91 19 121/67 87 100 06/22 2100 91 20 115/66 85 100 06/22 2045 91 21 125/70 89 100 06/22 2030 89 18 132/73 93 100 06/22 2015 88 17 132/73 95 100 06/22 2000 98.2 Ventilator 35 06/22 2000 Ventilator 35 06/22 2000 89 18 124/74 93 100 06/22 1945 91 23 129/74 96 100 06/22 1930 87 17 124/69 90 100 06/22 1922 86 18 122/70 89 100 06/22 1915 86 17 121/70 90 100 06/22 1900 85 17 120/70 90 100 06/22 1830 85 17 121/69 89 100 06/22 1815 84 17 119/69 89 100 06/22 1800 84 19 119/69 89 100 06/22 1745 84 119/68 89 100 06/22 1730 84 119/68 88 100 06/22 1715 84 117/68 88 100 06/22 1712 85 100 30 06/22 1700 83 115/66 86 100 06/22 1645 83 116/67 87 100 06/22 1630 83 116/67 86 100 06/22 1615 83 16 118/67 87 100 06/22 1600 83 16 114/66 85 100 06/22 1545 83 17 113/66 85 100 06/22 1530 85 11 111/65 81 100 06/22 1515 82 19 113/65 84 100 06/22 1504 97.9 06/22 1500 82 19 113/66 84 100 06/22 1445 82 18 108/64 82 100 06/22 1436 82 19 155/76 109 100 06/22 1430 82 14 108/63 80 100 06/22 1415 82 17 109/65 82 100 06/22 1409 83 100 30 06/22 1400 83 18 106/64 79 100 06/22 1345 86 16 101/62 77 100 06/22 1330 82 11 106/66 80 100 06/22 1315 81 19 110/68 83 100 06/22 1301 83 20 100 06/22 1300 83 14 115/70 87 100 06/22 1245 79 11 118/69 89 100 06/22 1230 79 13 118/68 87 100 06/22 1215 78 14 118/70 87 100 06/22 1200 97.9 06/22 1200 78 19 118/71 90 100 06/22 1145 78 15 115/66 85 98 06/22 1144 78 115/66 86 98 PATIENT WEIGHT: Weight (lb): 220 Weight (oz): 3.87 Weight (kg): 99.900 Medications: Active Meds + DC'd Last 24 Hrs Dexmedetomidine HCl 400 MCG TITRATE IV Sodium Chloride 96 ML Potassium Chloride 100 ML ONCE ONE IV (DC) Dextrose/Water 1,000 ML .[id number] IV Dextrose/Water 25 ML ASDIR PRN IV Glucagon 1 MG ASDIR PRN IM Insulin Human Lispro LOW DOSE SCALE ASDIR SUBQ Sterile Water 1 ML ASDIR PRN IM Propofol 100 ML TITRATE IV (CKD) Midazolam HCl 100 ML TITRATE IV (CKD) Epinephrine 8 MG TITRATE IV (CKD) Sodium Chloride 242 ML Norepinephrine Bitartrate 16 MG TITRATE IV Sodium Chloride 234 ML Perflutren Lipid Microsphere DIRECTED ONCE PRN IV Sodium Chloride DIRECTED ONCE PRN IV Sodium Chloride 5 ML ONCE PRN IV Fentanyl Citrate 50 ML TITRATE IV (CKD) Propofol 100 ML .Q24H ONE IV (DC) Azithromycin 500 MG DAILY IV Sodium Chloride 250 ML Cefepime HCl 1 GM Q12HR IV Sterile Water 10 ML Famotidine 20 MG DAILY PO Morphine Sulfate 2 MG Q4H PRN PRN IV Heparin Sodium (Porcine) 5,000 UNIT Q12HR SUBQ Mupirocin 1 APPLIC BID NASAL Hydrocodone Bitart/Acetaminophen 1 TAB Q6H PRN P RN PO Carvedilol 25 MG BID MEALS PO Esmolol HCl 250 ML TITRATE IV (CKD) Nicardipine HCl 250 ML TITRATE IV Physical Exam General appearance: respiratory support Head/Eyes: atraumatic, normocephalic, PERRL ENT: moist mucosal membranes, normal nose Neck: non-tender, supple/no meningismus Cardiovascular: CV assessment: regular rate and rhythm, no murm ur Respiratory: no distress, coarse breathsounds, m echanically ventialted Abdomen: soft, non-tender Upper extremity: UE assessment: normal capillary refill, normal temperature Lower extremity: LE assessment: normal capillary refill, normal temperature, no edema Musculoskeletal: normal inspection Neuro/RADIOTELEGRAPHIST: intubated and sedated, withdraws to p ainful stimuli Diagnosis, Assessment Plan Free Text DxA P Notes Free Text DxA P Notes: 1. Hypertensive urgency/emergency - presented with severely elevated BP requiring 2 IV infusions, subsequently suffered PEA cardiac arrest - BP now stable, resume coreg via NG - on cardene - goal bp 120-140/60-80 2. Cardiac arrest - PEA in etiology, pt became hypothermic and sub sequently bradycardic 3. Type B aortic dissection s/p EVAR - has residual descending aortic dissect ion extending into iliacs. No evidence of rupture on CTA. Reviewed by vascular surgery - appreciate assitance - needs aggressive BP Control. 4. Acute on chronic systolic heart failure - likely hypertensive heart disease due to long standing elevated BP - warm and well perfused on examination - Lactic acid normal this AM - monitor UOP, may need low dose lasix to see if this helps, he is edematous 5. Shock - resolved - warm and well perfused on examination 6. JENNIFER on CKD stage 3 - likely secondary to fluctuation in BP - nephrology following, appreciate recommendatio ns - monitor UOP 7. Acute hypoxic respiratory failure - wean from ventilator as tolerated - per ICU te am Will follow. Please call if questions. [facility] Electron[facility] Signed by Abhi Ortiz DO on 06/23 at 1138 RPT #:[id number] END OF REPORT 2020-06-23 11:17:00-00:[address] [facility] ([facility]) Neurology Progress Note REPORT#:[id number] REPORT STATUS: Signed DATE:06/23/20 TIME: 1117 PATIENT: JORGE GOINS UNIT #: [id number] ROOM/BED: [address] : [birth year] AGE: 34 SEX: M ATTEND: Luis M Olmedo MD ADM AUTHOR: Jefferson Darling DO R1 * ALL edits or amendments must be made on the rimidi/computer document * Subjective Chief Complaint: Cardiac Arrest, JENNIFER, Lethargy, AMS, PNA, Uncontr olled HTN HPI: Pt was seen and examined. No acute neurologic events overnight. Patient remains the same neurologically as yesterday. Objective General VS: Last Documented: Result Date Time Pulse Ox 100 06/23 1107 Pulse 80 06/23 1107 Resp 0 06/23 1107 B/P 125/63 06/23 1030 B/P Mean 86 06/23 1030 FiO2 28 06/23 0827 O2 Delivery Ventilator 06/23 0827 Temp 37.2 06/23 0800 O2 Flow Rate 15 06/22 0724 PATIENT WEIGHT: Weight (lb): 220 Weight (oz): 3.87 Weight (kg): 99.900 Medications Current Home Medications ALBUTEROL (PROAIR HFA 90 MCG/ACT 8.5 GM) 2 PUFF INH RTQ6H PRN PRN SOB ASPIRIN EC (ECOTRIN) 81 MG PO DAILY CARVEDILOL (COREG) 25 MG PO BID MEALS ACETAMINOPHEN/CODEINE (TYLENOL WITH CODE INE #4 300/60 MG) 1 TAB PO Q6H PRN PRN PAIN ATORVASTATIN (LIPITOR) 20 MG PO BEDTIME LOSARTAN (COZAAR) 100 MG PO DAILY NIFEdipine CC (ADALAT CC) 90 MG PO Q12HR HYDROCHLOROTHIAZIDE (HYDRODIURIL) 25 MG PO DAILY Active Meds + DC'd Last 24 Hrs Dexmedetomidine HCl 400 MCG TITRATE IV Sodium Chloride 96 ML Potassium Chloride 100 ML ONCE ONE IV (DC) Dextrose/Water 1,000 ML .[id number] IV Dextrose/Water 25 ML ASDIR PRN IV Glucagon 1 MG ASDIR PRN IM Insulin Human Lispro LOW DOSE SCALE ASDIR SUBQ Sterile Water 1 ML ASDIR PRN IM Propofol 100 ML TITRATE IV (CKD) Midazolam HCl 100 ML TITRATE IV (CKD) Epinephrine 8 MG TITRATE IV (CKD) Sodium Chloride 242 ML Norepinephrine Bitartrate 16 MG TITRATE IV Sodium Chloride 234 ML Perflutren Lipid Microsphere DIRECTED ONCE PRN IV Sodium Chloride DIRECTED ONCE PRN IV Sodium Chloride 5 ML ONCE PRN IV Fentanyl Citrate 50 ML TITRATE IV (CKD) Propofol 100 ML .Q24H ONE IV (DC) Azithromycin 500 MG DAILY IV Sodium Chloride 250 ML Cefepime HCl 1 GM Q12HR IV Sterile Water 10 ML Famotidine 20 MG DAILY PO Morphine Sulfate 2 MG Q4H PRN PRN IV Heparin Sodium (Porcine) 5,000 UNIT Q12HR SUBQ Mupirocin 1 APPLIC BID NASAL Hydrocodone Bitart/Acetaminophen 1 TAB Q6H PRN P RN PO Carvedilol 25 MG BID MEALS PO Esmolol HCl 250 ML TITRATE IV (CKD) Nicardipine HCl 250 ML TITRATE IV Physical Exam General appearance: cachectic/emaciated, chronic ally ill appearing, obese Head/Eyes: atraumatic, normocephalic ENT: moist mucosal membranes Neck: non-tender, supple/no meningismus, no brui t / NL carotids, no masses or swelling Cardiovascular: irregular rate and rhythm, murmu r Respiratory: decreased breath sounds, intubated/ mech vent Abdomen: non-tender, normal bowel sounds, soft Neuro/RADIOTELEGRAPHIST: lethargic, came o ff versed sedation yesterday intubated does not open eyes or follow commands Results Findings/Data: Laboratory Tests 06/23 0201 Blood Gas Puncture Site R Radial ABG pH (7.35 - 7.45 pH units) 7.47 H ABG pCO2 (35 - 48 mmHg) 29.3 *L ABG pO2 (83 - 108 mmHg) 118.3 H ABG PO2/FiO2 Ratio (mm/Hg) 394.33 ABG HCO3 (21 - 28 mmol/L) 21.1 ABG Total CO2 (22 - 29 mmol/L) 22.0 ABG O2 Sat Calc/Denise (94 - 98 %) 98.9 H ABG Base Excess (-2 - 3 mmol/L) -1.7 Emmanuel Test N/A Respiration Rate (12 - 20 /MIN) 16 O2 Delivery Device Adult Vent Vent Mode ASSIST CONTROL FiO2 (%) 30 Instrument (Specimen Descript) Arterial Laboratory Tests 06/23 06/23 06/23 06/22 0856 0331 0300 1147 Chemistry Sodium (137 - 145 mmol/L) 137 Potassium (3.4 - 5.0 mmol/L) 3.2 L 3.3 L Chloride (98 - 107 mmol/L) 104 Carbon Dioxide (22 - 30 mmol/L) 24 BUN (9 - 20 mg/dL) 73 H Creatinine (0.7 - 1.3 mg/dL) 3.3 H Glomerular Filtr Rate (>60) 28 L Glucose (74 - 106 mg/dL) 117 H POC Glucose (74 - 106 MG/DL) 86 56 L Calcium (8.4 - 10.2 mg/dL) 7.1 L Phosphorus (2.5 - 4.5 mg/dL) 4.6 H Magnesium (1.6 - 2.3 mg/dL) 2.1 Cortisol AM Sample (ug/dL) 44.2 Laboratory Tests 06/23 0300 Hematology WBC (5.0 - 12.0 x10 3/uL) 10.7 RBC (4.70 - 6.10 x10 6/uL) 3.93 L Hgb (14.0 - 18.0 g/dL) 11.5 L Hct (37.0 - 49.0 %) 35.4 L MCV (80 - 94 fL) 90 MCH (27 - 31 pg) 29.3 MCHC (33 - 37 g/dL) 32.5 L RDW (11.5 - 15.5 %) 16.5 H Plt Count (130 - 400 x10 3/uL) 224 MPV (9.4 - 16.4 fL) 10.6 Neut % (Auto) (43 - 65 %) 86.7 H Lymph % (Auto) (20.5 - 45.5 %) 5.0 L Citrus % (Auto) (5.5 - 11.7 %) 7.6 Eos % (Auto) (0.9 - 2.9 %) 0.1 L Baso % (Auto) (0.2 - 1.0 %) 0.1 L Neut # (Auto) (2.2 - 4.8 x10 3/uL) 9.28 H Lymph # (Auto) (1.3 - 2.9 x10 3/uL) 0.53 L Citrus # (Auto) (0.3 - 0.8 x10 3/uL) 0.81 H Eos # (Auto) (0.0 - 0.2 x10 3/uL) 0.01 Baso # (Auto) (0.0 - 0.1 x10 3/uL) 0.01 Immature Gran % (0.0 - 2.0 %) 0.5 Nucleated RBC % (0 - 1.0 %) 0.2 Radiology Data: Recent Impressions: RADIOLOGY - XR CHEST 1 V 06/23 0405 Report Impression - Status: SIGNED Entered: 06/23/2020 0712 IMPRESSION: Stable examination. Impression By: [email or web address] - Denny Mohamud MD Diagnosis, Assessment Plan Problem List/A P: 1. Hypertensive urgency 2. Noncompliance 3. Generalized headaches 4. Viral illness 5. Prostatitis 6. Hypertensive urgency 7. Acute prostatitis with hematuria 8. High blood pressure 9. Uncontrolled hypertension 10. Testicular pain, right 11. Abdominal pain 12. Back pain 13. Hypertension 14. Medication refill 15. Asthma 16. Noncompliance w/medication treatment due to intermit use of medication 17. Acute asthma 18. Acute asthma exacerbation 19. Asthma exacerbation 20. New onset of congestive heart failure 21. Shortness of breath 22. Abnormal kidney function 23. CHF exacerbation 24. JENNIFER (acute kidney injury) 25. Hypokalemia 26. CHF (congestive heart failure) 27. Left against medical advice 28. Chest pain 29. Heart failure 30. Hypertensive emergency 31. Cholecystitis 32. Pulmonary edema 33. Elevated troponin 34. Aortic dissection 35. Dental abscess 36. COVID-19 37. Multifocal neurological deficit 38. Multifocal pneumonia 39. Accelerated essential hypertension Free Text A P: #Lethargy AMS- Likely 2/2 metabolic encephalopat hy -most likely 2/2 metabolic encephalopathy -s/p code yesterday, successfully rescucitated -Cr 3.3 today -CT brain yesterday on 06/21 showed no acute intracranial hemorrhage, with only mild chronic microvascular ischemic injuries. Al so, there are faint calcifications in the bilate ral basal ganglia, but the CT brainn is essentially unchanged since 05/16/2015. -EEG is still pending -No need for brain MRI for now -Continue with observation -D/w nurse -Will continue to follow closely Discussed with the attending neurologist, Dr. Chino . at 1120 RPT #:[id number] END OF REPORT 2020-06-23 11:17:00-00:00 [facility] Neurology Progress Note REPORT#:[id number] REPORT STATUS: Signed DATE:06/23/20 TIME: 1117 PATIENT: JORGE GOINS UNIT #: [id number] ROOM/BED: [address] : [birth year] AGE: 34 SEX: M ATTEND: Luis M Olmedo MD ADM AUTHOR: Jefferson Darling DO R1 * ALL edits or amendments must be made on the rimidi/computer document * Jefferson Darling 06/23/20 1117: Subjective Chief Complaint: Cardiac Arrest, JENNIFER, Lethargy, AMS, PNA, Uncontr olled HTN HPI: Pt was seen and examined. No acute neurologic events overnight. Patient remains the same neurologically as yesterday. Objective General VS: Last Documented: Result Date Time Pulse Ox 100 06/23 1107 Pulse 80 06/23 1107 Resp 0 06/23 1107 B/P 125/63 06/23 1030 B/P Mean 86 06/23 1030 FiO2 28 06/23 0827 O2 Delivery Ventilator 06/23 827 Temp 37.2 06/23 0800 O2 Flow Rate 15 06/22 0724 PATIENT WEIGHT: Weight (lb): 220 Weight (oz): 3.87 Weight (kg): 99.900 Medications Current Home Medications ALBUTEROL (PROAIR HFA 90 MCG/ACT 8.5 GM) 2 PUFF INH RTQ6H PRN PRN SOB ASPIRIN EC (ECOTRIN) 81 MG PO DAILY CARVEDILOL (COREG) 25 MG PO BID MEALS ACETAMINOPHEN/CODEINE (TYLENOL WITH CODE INE #4 300/60 MG) 1 TAB PO Q6H PRN PRN PAIN ATORVASTATIN (LIPITOR) 20 MG PO BEDTIME LOSARTAN (COZAAR) 100 MG PO DAILY NIFEdipine CC (ADALAT CC) 90 MG PO Q12HR HYDROCHLOROTHIAZIDE (HYDRODIURIL) 25 MG PO DAILY Active Meds + DC'd Last 24 Hrs Dexmedetomidine HCl 400 MCG TITRATE IV Sodium Chloride 96 ML Potassium Chloride 100 ML ONCE ONE IV (DC) Dextrose/Water 1,000 ML .[id number] IV Dextrose/Water 25 ML ASDIR PRN IV Glucagon 1 MG ASDIR PRN IM Insulin Human Lispro LOW DOSE SCALE ASDIR SUBQ Sterile Water 1 ML ASDIR PRN IM Propofol 100 ML TITRATE IV (CKD) Midazolam HCl 100 ML TITRATE IV (CKD) Epinephrine 8 MG TITRATE IV (CKD) Sodium Chloride 242 ML Norepinephrine Bitartrate 16 MG TITRATE IV Sodium Chloride 234 ML Perflutren Lipid Microsphere DIRECTED ONCE PRN IV Sodium Chloride DIRECTED ONCE PRN IV Sodium Chloride 5 ML ONCE PRN IV Fentanyl Citrate 50 ML TITRATE IV (CKD) Propofol 100 ML .Q24H ONE IV (DC) Azithromycin 500 MG DAILY IV Sodium Chloride 250 ML Cefepime HCl 1 GM Q12HR IV Sterile Water 10 ML Famotidine 20 MG DAILY PO Morphine Sulfate 2 MG Q4H PRN PRN IV Heparin Sodium (Porcine) 5,000 UNIT Q12HR SUBQ Mupirocin 1 APPLIC BID NASAL Hydrocodone Bitart/Acetaminophen 1 TAB Q6H PRN P RN PO Carvedilol 25 MG BID MEALS PO Esmolol HCl 250 ML TITRATE IV (CKD) Nicardipine HCl 250 ML TITRATE IV Physical Exam General appearance: cachectic/emaciated, chronic ally ill appearing, obese Head/Eyes: atraumatic, normocephalic ENT: moist mucosal membranes Neck: non-tender, supple/no meningismus, no brui t / NL carotids, no masses or swelling Cardiovascular: irregular rate and rhythm, murmu r Respiratory: decreased breath sounds, intubated/ mech vent Abdomen: non-tender, normal bowel sounds, soft Neuro/RADIOTELEGRAPHIST: lethargic, came o ff versed sedation yesterday intubated does not open eyes or follow commands Results Findings/Data: Laboratory Tests 06/23 0201 Blood Gas Puncture Site R Radial ABG pH (7.35 - 7.45 pH units) 7.47 H ABG pCO2 (35 - 48 mmHg) 29.3 *L ABG pO2 (83 - 108 mmHg) 118.3 H ABG PO2/FiO2 Ratio (mm/Hg) 394.33 ABG HCO3 (21 - 28 mmol/L) 21.1 ABG Total CO2 (22 - 29 mmol/L) 22.0 ABG O2 Sat Calc/Denise (94 - 98 %) 98.9 H ABG Base Excess (-2 - 3 mmol/L) -1.7 Emmanuel Test N/A Respiration Rate (12 - 20 /MIN) 16 O2 Delivery Device Adult Vent Vent Mode ASSIST CONTROL FiO2 (%) 30 Instrument (Specimen Descript) Arterial Laboratory Tests 06/23 06/23 06/23 06/22 0856 0331 0300 1147 Chemistry Sodium (137 - 145 mmol/L) 137 Potassium (3.4 - 5.0 mmol/L) 3.2 L 3.3 L Chloride (98 - 107 mmol/L) 104 Carbon Dioxide (22 - 30 mmol/L) 24 BUN (9 - 20 mg/dL) 73 H Creatinine (0.7 - 1.3 mg/dL) 3.3 H Glomerular Filtr Rate (>60) 28 L Glucose (74 - 106 mg/dL) 117 H POC Glucose (74 - 106 MG/DL) 86 56 L Calcium (8.4 - 10.2 mg/dL) 7.1 L Phosphorus (2.5 - 4.5 mg/dL) 4.6 H Magnesium (1.6 - 2.3 mg/dL) 2.1 Cortisol AM Sample (ug/dL) 44.2 Laboratory Tests 06/23 0300 Hematology WBC (5.0 - 12.0 x10 3/uL) 10.7 RBC (4.70 - 6.10 x10 6/uL) 3.93 L Hgb (14.0 - 18.0 g/dL) 11.5 L Hct (37.0 - 49.0 %) 35.4 L MCV (80 - 94 fL) 90 MCH (27 - 31 pg) 29.3 MCHC (33 - 37 g/dL) 32.5 L RDW (11.5 - 15.5 %) 16.5 H Plt Count (130 - 400 x10 3/uL) 224 MPV (9.4 - 16.4 fL) 10.6 Neut % (Auto) (43 - 65 %) 86.7 H Lymph % (Auto) (20.5 - 45.5 %) 5.0 L Citrus % (Auto) (5.5 - 11.7 %) 7.6 Eos % (Auto) (0.9 - 2.9 %) 0.1 L Baso % (Auto) (0.2 - 1.0 %) 0.1 L Neut # (Auto) (2.2 - 4.8 x10 3/uL) 9.28 H Lymph # (Auto) (1.3 - 2.9 x10 3/uL) 0.53 L Citrus # (Auto) (0.3 - 0.8 x10 3/uL) 0.81 H Eos # (Auto) (0.0 - 0.2 x10 3/uL) 0.01 Baso # (Auto) (0.0 - 0.1 x10 3/uL) 0.01 Immature Gran % (0.0 - 2.0 %) 0.5 Nucleated RBC % (0 - 1.0 %) 0.2 Radiology Data: Recent Impressions: RADIOLOGY - XR CHEST 1 V 06/235 Report Impression - Status: SIGNED Entered: 06/23/2020711 IMPRESSION: Stable examination. Impression By: [email or web address] - Denny Mohamud MD Diagnosis, Assessment Plan Problem List/A P: 1. Hypertensive urgency 2. Noncompliance 3. Generalized headaches 4. Viral illness 5. Prostatitis 6. Hypertensive urgency 7. Acute prostatitis with hematuria 8. High blood pressure 9. Uncontrolled hypertension 10. Testicular pain, right 11. Abdominal pain 12. Back pain 13. Hypertension 14. Medication refill 15. Asthma 16. Noncompliance w/medication treatment due to intermit use of medication 17. Acute asthma 18. Acute asthma exacerbation 19. Asthma exacerbation 20. New onset of congestive heart failure 21. Shortness of breath 22. Abnormal kidney function 23. CHF exacerbation 24. JENNIFER (acute kidney injury) 25. Hypokalemia 26. CHF (congestive heart failure) 27. Left against medical advice 28. Chest pain 29. Heart failure 30. Hypertensive emergency 31. Cholecystitis 32. Pulmonary edema 33. Elevated troponin 34. Aortic dissection 35. Dental abscess 36. COVID-19 37. Multifocal neurological deficit 38. Multifocal pneumonia 39. Accelerated essential hypertension Free Text A P: #Lethargy AMS- Likely 2/2 metabolic encephalopat hy -most likely 2/2 metabolic encephalopathy -s/p code yesterday, successfully rescucitated -Cr 3.3 today -CT brain yesterday on 06/21 showed no acute intracranial hemorrhage, with only mild chronic microvascular ischemic injuries. Al so, there are faint calcifications in the bilate ral basal ganglia, but the CT brainn is essentially unchanged since 05/16/2015. -EEG is still pending -No need for brain MRI for now -Continue with observation -D/w nurse -Will continue to follow closely Discussed with the attending neurologist, Dr. Chino . William Chino 06/23/20 1245: Diagnosis, Assessment Plan Free Text A P: still pending eeg; agree with above note/ plan b y resident at 1120 at 1245 RPT #:[id number] END OF REPORT 2020-06-23 10:59:00-00:00 [facility] Progress Note REPORT#:[id number] REPORT STATUS: Signed DATE:06/23/20 TIME: 1059 PATIENT: JORGE OGINS UNIT #: [id number] ROOM/BED: [address] : [address] AGE: 34 SEX: M ATTEND: Luis M Olmedo MD ADM AUTHOR: Ceferino De La Garza MD * ALL edits or amendments must be made on the [employer] document * Subjective Comments: SEEN AT BEDSIDE INTUBATED, SEDATE GOOD UOP ACIDOSIS IMPROVED BP LOW NORMAL Objective General VS/I O: Vital Signs: Date Time Temp Pulse Resp B/P B/P Pulse O2 O2 F low FiO2 Mean Ox Delivery Rate 06/23 08 100 Ventilator 28 06/23 08 81 100 28 06/23 0800 Ventilator 06/23 0600 84 20 121/61 84 100 06/23 0545 85 21 113/58 78 100 06/23 0530 87 20 114/59 79 100 06/23 0515 90 23 104/56 80 100 06/23 0501 86 26 119/56 81 99 06/23 0445 88 21 132/67 90 100 06/23 0442 91 24 126/66 89 100 06/23 0430 91 24 135/70 94 100 06/23 0425 90 100 28 06/23 0415 91 23 138/70 95 100 06/23 0400 37.4 Ventilator 35 06/23 0400 88 20 133/66 93 100 06/23 0345 89 20 134/69 93 100 06/23 0336 90 19 131/69 92 100 06/23 0330 90 20 138/69 96 100 06/23 0315 90 20 142/71 98 100 06/23 0300 93 25 136/71 95 100 06/23 0245 87 19 139/70 97 100 06/23 0230 87 19 143/71 98 100 06/23 0215 88 20 136/71 95 100 06/23 0200 89 20 140/71 97 100 06/23 0147 88 100 30 06/23 0145 89 20 134/71 94 100 06/23 0130 90 21 129/72 93 100 06/23 0115 93 26 129/73 95 100 06/23 0100 91 22 127/62 88 100 06/23 0045 90 20 124/56 85 99 06/23 0030 95 26 123/69 90 100 06/23 0028 92 20 131/70 93 100 06/23 0015 93 22 100 06/23 0000 37.9 Ventilator 35 06/23 0000 94 22 120/68 89 100 06/22 2345 93 22 119/69 88 100 06/22 2330 92 21 122/68 89 100 06/22 2315 92 19 124/69 89 100 06/22 2300 92 21 119/70 88 100 06/22 2245 92 19 119/69 88 100 06/22 2230 91 20 120/71 89 100 06/22 2215 91 20 121/70 89 100 06/22 2200 90 20 126/70 91 100 06/22 2145 90 19 120/70 90 100 06/22 213 100 Ventilator 30 06/22 2134 91 100 30 06/22 2130 91 18 119/68 88 100 06/22 2115 91 19 121/67 87 100 06/22 2100 91 20 115/66 85 100 06/22 2045 91 21 125/70 89 100 06/22 2030 89 18 132/73 93 100 06/22 2015 88 17 132/73 95 100 06/22 2000 36.8 Ventilator 35 06/22 2000 Ventilator 35 06/22 2000 89 18 124/74 93 100 06/22 1945 91 23 129/74 96 100 06/22 1930 87 17 124/69 90 100 06/22 1922 86 18 122/70 89 100 06/22 1915 86 17 121/70 90 100 06/22 1900 85 17 120/70 90 100 06/22 1830 85 17 121/69 89 100 06/22 1815 84 17 119/69 89 100 06/22 1800 84 19 119/69 89 100 06/22 1745 84 119/68 89 100 06/22 1730 84 119/68 88 100 06/22 1715 84 117/68 88 100 06/22 1712 85 100 30 06/22 1700 83 115/66 86 100 06/22 1645 83 116/67 87 100 06/22 1630 83 116/67 86 100 06/22 1615 83 16 118/67 87 100 06/22 1600 83 16 114/66 85 100 06/22 1545 83 17 113/66 85 100 06/22 1530 85 11 111/65 81 100 06/22 1515 82 19 113/65 84 100 06/22 1504 36.6 06/22 1500 82 19 113/66 84 100 06/22 1445 82 18 108/64 82 100 06/22 1436 82 19 155/76 109 100 06/22 1430 82 14 108/63 80 100 06/22 1415 82 17 109/65 82 100 06/22 1409 83 100 30 06/22 1400 83 18 106/64 79 100 06/22 1345 86 16 101/62 77 100 06/22 1330 82 11 106/66 80 100 06/22 1315 81 19 110/68 83 100 06/22 1301 83 20 100 06/22 1300 83 14 115/70 87 100 06/22 1245 79 11 118/69 89 100 06/22 1230 79 13 118/68 87 100 06/22 1215 78 14 118/70 87 100 06/22 1200 36.6 06/22 1200 78 19 118/71 90 100 06/22 1145 78 15 115/66 85 98 06/22 1144 78 115/66 86 98 06/22 1109 36.1 79 11 100 24 hour I O ending at 0700: 06/23 0700 06/22 1900 Intake Total 1789.50 864.00 Output Total 900 750 Balance 889.50 114.00 Intake, Free 130 Water Intake, IV 1059.50 828.00 Intake, Tube 600 36 Feeding Number 1 Bowel Movements Output, Urine 900 750 Patient 99.9 kg Weight Weight Bed scale Measurement Method Medications Active Meds + DC'd Last 24 Hrs Dexmedetomidine HCl 400 MCG TITRATE IV Sodium Chloride 96 ML Potassium Chloride 100 ML ONCE ONE IV (DC) Dextrose/Water 1,000 ML .[id number] IV Dextrose/Water 25 ML ASDIR PRN IV Glucagon 1 MG ASDIR PRN IM Insulin Human Lispro LOW DOSE SCALE ASDIR SUBQ Sterile Water 1 ML ASDIR PRN IM Propofol 100 ML TITRATE IV (CKD) Midazolam HCl 100 ML TITRATE IV (CKD) Epinephrine 8 MG TITRATE IV (CKD) Sodium Chloride 242 ML Norepinephrine Bitartrate 16 MG TITRATE IV Sodium Chloride 234 ML Perflutren Lipid Microsphere DIRECTED ONCE PRN IV Sodium Chloride DIRECTED ONCE PRN IV Sodium Chloride 5 ML ONCE PRN IV Fentanyl Citrate 50 ML TITRATE IV (CKD) Propofol 100 ML .Q24H ONE IV (DC) Azithromycin 500 MG DAILY IV Sodium Chloride 250 ML Cefepime HCl 1 GM Q12HR IV Sterile Water 10 ML Famotidine 20 MG DAILY PO Morphine Sulfate 2 MG Q4H PRN PRN IV Heparin Sodium (Porcine) 5,000 UNIT Q12HR SUBQ Mupirocin 1 APPLIC BID NASAL Hydrocodone Bitart/Acetaminophen 1 TAB Q6H PRN P RN PO Carvedilol 25 MG BID MEALS PO Esmolol HCl 250 ML TITRATE IV (CKD) Nicardipine HCl 250 ML TITRATE IV Physical Exam General appearance: sedated Head/eyes: normal conjunctiva/sclera Neck: no JVD Respiratory: symmetric expansion Genitourinary: zuñiga, urine Musculoskeletal: normal inspection Neuro/RADIOTELEGRAPHIST: SEDATED Hemodialysis access: Type: vascath Results Findings/Data: Laboratory Tests 06/23 0201 Blood Gas Puncture Site R Radial ABG pH (7.35 - 7.45 pH units) 7.47 H ABG pCO2 (35 - 48 mmHg) 29.3 *L ABG pO2 (83 - 108 mmHg) 118.3 H ABG PO2/FiO2 Ratio (mm/Hg) 394.33 ABG HCO3 (21 - 28 mmol/L) 21.1 ABG Total CO2 (22 - 29 mmol/L) 22.0 ABG O2 Sat Calc/Denise (94 - 98 %) 98.9 H ABG Base Excess (-2 - 3 mmol/L) -1.7 Emmanuel Test N/A Respiration Rate (12 - 20 /MIN) 16 O2 Delivery Device Adult Vent Vent Mode ASSIST CONTROL FiO2 (%) 30 Instrument (Specimen Descript) Arterial Laboratory Tests 06/23 06/23 06/23 06/22 0856 0331 0300 1147 Chemistry Sodium (137 - 145 mmol/L) 137 Potassium (3.4 - 5.0 mmol/L) 3.2 L 3.3 L Chloride (98 - 107 mmol/L) 104 Carbon Dioxide (22 - 30 mmol/L) 24 BUN (9 - 20 mg/dL) 73 H Creatinine (0.7 - 1.3 mg/dL) 3.3 H Glomerular Filtr Rate (>60) 28 L Glucose (74 - 106 mg/dL) 117 H POC Glucose (74 - 106 MG/DL) 86 56 L Calcium (8.4 - 10.2 mg/dL) 7.1 L Phosphorus (2.5 - 4.5 mg/dL) 4.6 H Magnesium (1.6 - 2.3 mg/dL) 2.1 Cortisol AM Sample (ug/dL) 44.2 Laboratory Tests 06/23 0300 Hematology WBC (5.0 - 12.0 x10 3/uL) 10.7 RBC (4.70 - 6.10 x10 6/uL) 3.93 L Hgb (14.0 - 18.0 g/dL) 11.5 L Hct (37.0 - 49.0 %) 35.4 L MCV (80 - 94 fL) 90 MCH (27 - 31 pg) 29.3 MCHC (33 - 37 g/dL) 32.5 L RDW (11.5 - 15.5 %) 16.5 H Plt Count (130 - 400 x10 3/uL) 224 MPV (9.4 - 16.4 fL) 10.6 Neut % (Auto) (43 - 65 %) 86.7 H Lymph % (Auto) (20.5 - 45.5 %) 5.0 L Citrus % (Auto) (5.5 - 11.7 %) 7.6 Eos % (Auto) (0.9 - 2.9 %) 0.1 L Baso % (Auto) (0.2 - 1.0 %) 0.1 L Neut # (Auto) (2.2 - 4.8 x10 3/uL) 9.28 H Lymph # (Auto) (1.3 - 2.9 x10 3/uL) 0.53 L Citrus # (Auto) (0.3 - 0.8 x10 3/uL) 0.81 H Eos # (Auto) (0.0 - 0.2 x10 3/uL) 0.01 Baso # (Auto) (0.0 - 0.1 x10 3/uL) 0.01 Immature Gran % (0.0 - 2.0 %) 0.5 Nucleated RBC % (0 - 1.0 %) 0.2 Diagnosis, Assessment Plan Free Text A P: JENNIFER hypotension AAA lactic acidosis severe metabolic acidosis CR STABLE ACIDOSIS RESOLVED F/U IMAGING UOP GOOD HD CATHETER PLACED YESTERDAY. IF HD NEEDED WILL ORDER MONITOR FOR NOW at 1101 RPT #:[id number] END OF REPORT 2020-06-23 09:02:00-00:00 [facility] Vascular Surgery Progress Note REPORT#:[id number] REPORT STATUS: Signed DATE:06/23/20 TIME: 901 PATIENT: JORGE GOINS UNIT #: [id number] ROOM/BED: [address] : [birth year] AGE: 34 SEX: M ATTEND: Luis M Olmedo MD ADM AUTHOR: Lorenzo Cardoza MD * ALL edits or amendments must be made on the el [employer]/computer document * Subjective Chief Complaint: Intubated and sedated at time of examination Objective HEENT: anicteric Neck: supple Cardiovascular: regular rate, hypotensive on mul tiple vasopressors Respiratory: symmetric expansion Abdomen: soft, non-tender, no distention, no gua rding Genitourinary: zuñiga Extremities: moves all, palpable radial and dors diana pedis pulses bilaterally Neuro/RADIOTELEGRAPHIST: intubated and sedated Skin: no flank or back ecchymosis Psychiatry: normal mood Diagnosis, Assessment Plan Free Text A P: Patient is a 34-year-old male with history of ty pe B aortic dissection status post thoracic endovascular aortic repair at [facility] who presents with hypertensive urgency and chest and back easton n. Patient was admitted for impulse control goal blood p ressure less than 120 mmHg and heart rate goal of 60 bpm or less. Patient also noted to have an acute kidney injury with a creatinine on admission of 1.7 up from 1.2. Rosalia ent also has evidence of groundglass opacities on his CT scan concerning for Covid pneumonia and the patient is currently a Covid patient under investigation. Patient still pending Covid send out test. Our recommendations are as follows: Impulse control with blood p ressure to be kept under 120 mmHg systolic and heart rate 60 bpm or less: Continue arterial line Worsening JENNIFER: Obtain renal artery duplex. There may be dynamic flap coverage of either renal artery and main require urgent i ntervention. Appreciate cardiology recommendations for blood pressure control: Stat echocardiogram performed rev ealing severe mitral regurgitation reduced ejection fraction. Discussed with Dr. Ortiz appreciate re commendations Patient currently critically ill with new CTA ch est abdomen and pelvis personally reviewed and interpreted. There is no evidence of rupture or contrast extravasation. Vascular surgery will continue to follow closely He will need subsequent interventions to his dis section if he recovers If there is any sign of malperfusion he will nee d emergent intervention at 0905 RPT #[id number] END OF REPORT 2020-06-23 08:22:00-00:00 [facility] Critical Care Progress Note REPORT#:[id number] REPORT STATUS: Signed DATE:06/23/20 TIME: 821 PATIENT: JORGE GOINS UNIT #: [id number] ROOM/BED: [address] : [birth year] AGE: 34 SEX: M ATTEND: Luis M Olmedo MD ADM AUTHOR: Esdras Shoemaker MD R1 * ALL edits or amendments must be made on the [employer]/computer document * Subjective Comments: Pt overnight would get agitated and tried taking ET tube out when versed was turned off and had to be subsequently turned andrew k on. Review of Systems ROS Unable to obtain due to: intubated and sedated Objective General VS/I O Last Documented: Result Date Time Pulse Ox 100 06/23 06 B/P 121/61 06/23 06 B/P Mean 84 06/23 06 Pulse 84 06/23 06 Resp 20 06/23 06 FiO2 28 06/23 0425 O2 Delivery Ventilator 06/23 040 Temp 37.4 06/23 0400 O2 Flow Rate 15 06/22 0724 24 hour I O ending at 0700: 06/23 0700 06/22 1900 Intake Total 1789.50 864.00 Output Total 900 750 Balance 889.50 114.00 Intake, Free 130 Water Intake, IV 1059.50 828.00 Intake, Tube 600 36 Feeding Number 1 Bowel Movements Output, Urine 900 750 Patient 99.9 kg Weight Weight Bed scale Measurement Method PATIENT WEIGHT: Weight (lb): 220 Weight (oz): 3.87 Weight (kg): 99.900 Medications: Active Meds + DC'd Last 24 Hrs Potassium Chloride 100 ML ONCE ONE IV (DC) Dextrose/Water 1,000 ML .[id number] IV Sterile Water 10 ML .STK-MED ONE IV (DC) Dextrose/Water 25 ML ASDIR PRN IV Glucagon 1 MG ASDIR PRN IM Insulin Human Lispro LOW DOSE SCALE ASDIR SUBQ Sterile Water 1 ML ASDIR PRN IM Propofol 100 ML TITRATE IV (CKD) Midazolam HCl 100 ML TITRATE IV (CKD) Epinephrine 8 MG TITRATE IV (CKD) Sodium Chloride 242 ML Norepinephrine Bitartrate 16 MG TITRATE IV Sodium Chloride 234 ML Perflutren Lipid Microsphere DIRECTED ONCE PRN IV Sodium Chloride DIRECTED ONCE PRN IV Sodium Chloride 5 ML ONCE PRN IV Fentanyl Citrate 50 ML TITRATE IV (CKD) Propofol 100 ML .Q24H ONE IV (DC) Azithromycin 500 MG DAILY IV Sodium Chloride 250 ML Cefepime HCl 1 GM Q12HR IV Sterile Water 10 ML Famotidine 20 MG DAILY PO Morphine Sulfate 2 MG Q4H PRN PRN IV Heparin Sodium (Porcine) 5,000 UNIT Q12HR SUBQ Mupirocin 1 APPLIC BID NASAL Hydrocodone Bitart/Acetaminophen 1 TAB Q6H PRN P RN PO Carvedilol 25 MG BID MEALS PO (DA) Esmolol HCl 250 ML TITRATE IV (CKD) Nicardipine HCl 250 ML TITRATE IV Physical Exam General appearance: respiratory support, sedated Head/Eyes: atraumatic, normocephalic Cardiovascular: normal heart sounds, normal S1 S 2, normal rate and rhythm Respiratory/Chest: aerating well, clear to auscu ltation Abdomen: soft, non-tender, normal bowel sounds, no distention Extremities: no edema Results Findings/Data: Laboratory Tests 06/23/20299: [Embedded Image Not Available] Laboratory Tests 06/23 201 Blood Gas Puncture Site R Radial ABG pH (7.35 - 7.45 pH units) 7.47 H ABG pCO2 (35 - 48 mmHg) 29.3 *L ABG pO2 (83 - 108 mmHg) 118.3 H ABG PO2/FiO2 Ratio (mm/Hg) 394.33 ABG HCO3 (21 - 28 mmol/L) 21.1 ABG Total CO2 (22 - 29 mmol/L) 22.0 ABG O2 Sat Calc/Denise (94 - 98 %) 98.9 H ABG Base Excess (-2 - 3 mmol/L) -1.7 Emmanuel Test N/A Respiration Rate (12 - 20 /MIN) 16 O2 Delivery Device Adult Vent Vent Mode ASSIST CONTROL FiO2 (%) 30 Instrument (Specimen Descript) Arterial Laboratory Tests 06/23 06/23 06/22 06/22 06/22 0331 0300 1147 0921 0921 Chemistry Sodium (137 - 145 mmol/L) 137 Potassium (3.4 - 5.0 mmol/L) 3.3 L Chloride (98 - 107 mmol/L) 104 Carbon Dioxide (22 - 30 mmol/L) 24 BUN (9 - 20 mg/dL) 73 H Creatinine (0.7 - 1.3 mg/dL) 3.3 H Glomerular Filtr Rate (>60) 28 L Glucose (74 - 106 mg/dL) 117 H POC Glucose (74 - 106 MG/DL) 86 56 L Lactic Acid (0.7 - 2.0 mmol/L) 1.1 Calcium (8.4 - 10.2 mg/dL) 7.1 L Phosphorus (2.5 - 4.5 mg/dL) 4.6 H Magnesium (1.6 - 2.3 mg/dL) 2.1 Troponin I (0.012 - 0.033 ng/mL) 0.699 *H Cortisol AM Sample (ug/dL) 44.2 06/22 0918 Chemistry POC Glucose (74 - 106 MG/DL) 80 Laboratory Tests 06/23 0300 Hematology WBC (5.0 - 12.0 x10 3/uL) 10.7 RBC (4.70 - 6.10 x10 6/uL) 3.93 L Hgb (14.0 - 18.0 g/dL) 11.5 L Hct (37.0 - 49.0 %) 35.4 L MCV (80 - 94 fL) 90 MCH (27 - 31 pg) 29.3 MCHC (33 - 37 g/dL) 32.5 L RDW (11.5 - 15.5 %) 16.5 H Plt Count (130 - 400 x10 3/uL) 224 MPV (9.4 - 16.4 fL) 10.6 Neut % (Auto) (43 - 65 %) 86.7 H Lymph % (Auto) (20.5 - 45.5 %) 5.0 L Citrus % (Auto) (5.5 - 11.7 %) 7.6 Eos % (Auto) (0.9 - 2.9 %) 0.1 L Baso % (Auto) (0.2 - 1.0 %) 0.1 L Neut # (Auto) (2.2 - 4.8 x10 3/uL) 9.28 H Lymph # (Auto) (1.3 - 2.9 x10 3/uL) 0.53 L Citrus # (Auto) (0.3 - 0.8 x10 3/uL) 0.81 H Eos # (Auto) (0.0 - 0.2 x10 3/uL) 0.01 Baso # (Auto) (0.0 - 0.1 x10 3/uL) 0.01 Immature Gran % (0.0 - 2.0 %) 0.5 Nucleated RBC % (0 - 1.0 %) 0.2 Microbiology: 06/21 1006 BLOOD: Blood Culture - RES 06/21 1006 BLOOD: Blood Culture - RES Radiology data Recent Impressions: RADIOLOGY - XR CHEST 1 V 06/23 0405 Report Impression - Status: SIGNED Entered: 06/23/2020 0712 IMPRESSION: Stable examination. Impression By: [email or web address] - Denny Mohamud MD Diagnosis, Assessment Plan Free text A P: 34 year old male with history of aortic dissecti on s/p EVAR came in for hypertensive urgency A/P: Neuro -intubated -on versed #AMS likely metabolic -CT brain showed no acute abnormalities -on versed -EEG pending -neuro following Pulm -s/p intubation following cardiac arrest -on FiO2 28% -ABG this AM 7.47/29.3/118.3/21.1 -weaning trials as tolerated -monitor CV #s/p Cardiac Arrest - PEA hypotensive. ROSC achieved after 9 minutes - likely from cardiogenic shock EF 30-34% - off all pressors - Aortic dissection ruled out from CTA chest , a bdomen and pelvis #hx of EVAR for aortic dissection and h/o endole ak in the past - seen by Dr. Ramires's group last admission. Dr. Wallace larsen consulted -Cardio consulted -CTA chest #HTN -restart coreg -on cardene -cardio following -monitor #hypotension -resolved -off pressors -cortisol AM wnl -monitor GI -dilated fluid filled loops of small bowel seen on CT -surgery consulted - no surgical intervention -lactic downtrending -monitor Renal #JENNIFER -Cr 3.3 -making urine -mena cath in place, may need HD -s/p cardiac arrest -CTA showed inflammation changes surrounding kid neys -nephro following -monitor gi ppx: pepcid dvt ppx: heparin Diet: tube feeds Plan: -restart coreg -weaning trials as tolerated w/ possible extubat ion today -AM labs ordered at 1238 RPT #[id number] END OF REPORT 2020-06-23 08:22:00-00:[address] [facility] ([facility]) Critical Care Progress Note REPORT#:[id number] REPORT STATUS: Signed DATE:06/23/20 TIME: 821 PATIENT: JORGE GOINS UNIT #: [id number] ROOM/BED: [address] : [birth year] AGE: 34 SEX: M ATTEND: Luis M Olmedo MD ADM AUTHOR: Esdras Shoemaker MD R1 * ALL edits or amendments must be made on the el [employer]/computer document * Evelina Shoemaker 06/23/20821: Subjective Comments: Pt overnight would get agitated and tried taking ET tube out when versed was turned off and had to be subsequently turned andrew k on. Review of Systems ROS Unable to obtain due to: intubated and sedated Objective General VS/I O Last Documented: Result Date Time Pulse Ox 100 06/23 0600 B/P 121/61 06/23 0600 B/P Mean 84 06/23 06 Pulse 84 06/23 0600 Resp 20 06/23 0600 FiO2 28 06/23 0425 O2 Delivery Ventilator 06/23 0400 Temp 37.4 06/23 0400 O2 Flow Rate 15 06/22 0724 24 hour I O ending at 0700: 06/23 0700 06/22 1900 Intake Total 1789.50 864.00 Output Total 900 750 Balance 889.50 114.00 Intake, Free 130 Water Intake, IV 1059.50 828.00 Intake, Tube 600 36 Feeding Number 1 Bowel Movements Output, Urine 900 750 Patient 99.9 kg Weight Weight Bed scale Measurement Method PATIENT WEIGHT: Weight (lb): 220 Weight (oz): 3.87 Weight (kg): 99.900 Medications: Active Meds + DC'd Last 24 Hrs Potassium Chloride 100 ML ONCE ONE IV (DC) Dextrose/Water 1,000 ML .[id number] IV Sterile Water 10 ML .STK-MED ONE IV (DC) Dextrose/Water 25 ML ASDIR PRN IV Glucagon 1 MG ASDIR PRN IM Insulin Human Lispro LOW DOSE SCALE ASDIR SUBQ Sterile Water 1 ML ASDIR PRN IM Propofol 100 ML TITRATE IV (CKD) Midazolam HCl 100 ML TITRATE IV (CKD) Epinephrine 8 MG TITRATE IV (CKD) Sodium Chloride 242 ML Norepinephrine Bitartrate 16 MG TITRATE IV Sodium Chloride 234 ML Perflutren Lipid Microsphere DIRECTED ONCE PRN IV Sodium Chloride DIRECTED ONCE PRN IV Sodium Chloride 5 ML ONCE PRN IV Fentanyl Citrate 50 ML TITRATE IV (CKD) Propofol 100 ML .Q24H ONE IV (DC) Azithromycin 500 MG DAILY IV Sodium Chloride 250 ML Cefepime HCl 1 GM Q12HR IV Sterile Water 10 ML Famotidine 20 MG DAILY PO Morphine Sulfate 2 MG Q4H PRN PRN IV Heparin Sodium (Porcine) 5,000 UNIT Q12HR SUBQ Mupirocin 1 APPLIC BID NASAL Hydrocodone Bitart/Acetaminophen 1 TAB Q6H PRN P RN PO Carvedilol 25 MG BID MEALS PO (DA) Esmolol HCl 250 ML TITRATE IV (CKD) Nicardipine HCl 250 ML TITRATE IV Physical Exam General appearance: respiratory support, sedated Head/Eyes: atraumatic, normocephalic Cardiovascular: normal heart sounds, normal S1 S 2, normal rate and rhythm Respiratory/Chest: aerating well, clear to auscu ltation Abdomen: soft, non-tender, normal bowel sounds, no distention Extremities: no edema Results Findings/Data: Laboratory Tests 06/23/20 0300: [Embedded Image Not Available] Laboratory Tests 06/23 201 Blood Gas Puncture Site R Radial ABG pH (7.35 - 7.45 pH units) 7.47 H ABG pCO2 (35 - 48 mmHg) 29.3 *L ABG pO2 (83 - 108 mmHg) 118.3 H ABG PO2/FiO2 Ratio (mm/Hg) 394.33 ABG HCO3 (21 - 28 mmol/L) 21.1 ABG Total CO2 (22 - 29 mmol/L) 22.0 ABG O2 Sat Calc/Denise (94 - 98 %) 98.9 H ABG Base Excess (-2 - 3 mmol/L) -1.7 Emmanuel Test N/A Respiration Rate (12 - 20 /MIN) 16 O2 Delivery Device Adult Vent Vent Mode ASSIST CONTROL FiO2 (%) 30 Instrument (Specimen Descript) Arterial Laboratory Tests 06/23 06/23 06/22 06/22 06/22 0331 0300 1147 0921 0921 Chemistry Sodium (137 - 145 mmol/L) 137 Potassium (3.4 - 5.0 mmol/L) 3.3 L Chloride (98 - 107 mmol/L) 104 Carbon Dioxide (22 - 30 mmol/L) 24 BUN (9 - 20 mg/dL) 73 H Creatinine (0.7 - 1.3 mg/dL) 3.3 H Glomerular Filtr Rate (>60) 28 L Glucose (74 - 106 mg/dL) 117 H POC Glucose (74 - 106 MG/DL) 86 56 L Lactic Acid (0.7 - 2.0 mmol/L) 1.1 Calcium (8.4 - 10.2 mg/dL) 7.1 L Phosphorus (2.5 - 4.5 mg/dL) 4.6 H Magnesium (1.6 - 2.3 mg/dL) 2.1 Troponin I (0.012 - 0.033 ng/mL) 0.699 *H Cortisol AM Sample (ug/dL) 44.2 06/22 0918 Chemistry POC Glucose (74 - 106 MG/DL) 80 Laboratory Tests 06/23 0300 Hematology WBC (5.0 - 12.0 x10 3/uL) 10.7 RBC (4.70 - 6.10 x10 6/uL) 3.93 L Hgb (14.0 - 18.0 g/dL) 11.5 L Hct (37.0 - 49.0 %) 35.4 L MCV (80 - 94 fL) 90 MCH (27 - 31 pg) 29.3 MCHC (33 - 37 g/dL) 32.5 L RDW (11.5 - 15.5 %) 16.5 H Plt Count (130 - 400 x10 3/uL) 224 MPV (9.4 - 16.4 fL) 10.6 Neut % (Auto) (43 - 65 %) 86.7 H Lymph % (Auto) (20.5 - 45.5 %) 5.0 L Citrus % (Auto) (5.5 - 11.7 %) 7.6 Eos % (Auto) (0.9 - 2.9 %) 0.1 L Baso % (Auto) (0.2 - 1.0 %) 0.1 L Neut # (Auto) (2.2 - 4.8 x10 3/uL) 9.28 H Lymph # (Auto) (1.3 - 2.9 x10 3/uL) 0.53 L Citrus # (Auto) (0.3 - 0.8 x10 3/uL) 0.81 H Eos # (Auto) (0.0 - 0.2 x10 3/uL) 0.01 Baso # (Auto) (0.0 - 0.1 x10 3/uL) 0.01 Immature Gran % (0.0 - 2.0 %) 0.5 Nucleated RBC % (0 - 1.0 %) 0.2 Microbiology: 06/21 1006 BLOOD: Blood Culture - RES 06/21 1006 BLOOD: Blood Culture - RES Radiology data Recent Impressions: RADIOLOGY - XR CHEST 1 V 06/23 0405 Report Impression - Status: SIGNED Entered: 06/23/2020 0712 IMPRESSION: Stable examination. Impression By: [email or web address] - Denny Mohamud MD Diagnosis, Assessment Plan Free text A P: 34 year old male with history of aortic dissecti on s/p EVAR came in for hypertensive urgency A/P: Neuro -intubated -on versed #AMS likely metabolic -CT brain showed no acute abnormalities -on versed -EEG pending -neuro following Pulm -s/p intubation following cardiac arrest -on FiO2 28% -ABG this AM 7.47/29.3/118.3/21.1 -weaning trials as tolerated -monitor CV #s/p Cardiac Arrest - PEA hypotensive. ROSC achieved after 9 minutes - likely from cardiogenic shock EF 30-34% - off all pressors - Aortic dissection ruled out from CTA chest , a bdomen and pelvis #hx of EVAR for aortic dissection and h/o endole ak in the past - seen by Dr. Ramires's group last admission. Dr. Wallace larsen consulted -Cardio consulted -CTA chest #HTN -restart coreg -on cardene -cardio following -monitor #hypotension -resolved -off pressors -cortisol AM wnl -monitor GI -dilated fluid filled loops of small bowel seen on CT -surgery consulted - no surgical intervention -lactic downtrending -monitor Renal #JENNIFER -Cr 3.3 -making urine -mena cath in place, may need HD -s/p cardiac arrest -CTA showed inflammation changes surrounding kid neys -nephro following -monitor gi ppx: pepcid dvt ppx: heparin Diet: tube feeds Plan: -restart coreg -weaning trials as tolerated w/ possible extubat ion today -AM labs ordered Edy Olmedo 06/23/20 1744: Attestations Physician Attestation Agree w/findings plan: I have personally interviewed and examin ed the patient 06/23/2020. All charts, labs, and imaging studies were reviewed. I agree with the resident's findings, exam, and plan. Lungs with rales Start weaning trials. CC time >40min. No procedure time included in th is time. at 1238 Electronically Signed by Edy Olmedo MD on at 6581 RPT #:[id number] END OF REPORT 2020-06-22 18:33:00-00:[address] [facility] ([facility]) Cardiology Progress Note REPORT#:[id number] REPORT STATUS: Signed DATE:06/22/20 TIME: 1832 PATIENT: JORGE GOINS UNIT #: [id number] ROOM/BED: [address] : [birth year] AGE: 34 SEX: M ATTEND: Yoseph Olmedo MD ADM AUTHOR: Dat Stahl DO * ALL edits or amendments must be made on the rimidi/computer document * Subjective Free Text Subj Notes Free Text Subj Notes: remains intubated off pressors Objective General VS/I O: 24 hour I O ending at 0700: 06/22 0700 06/21 1900 Intake Total 1977. 3000.00 Output Total 225 500 Balance 1753.00 2500.00 Intake, IV 1977. 3000.00 Output, Urine 225 500 Patient 98.3 kg Weight Weight Bed scale Measurement Method Vital Signs: Date Time Temp Pulse Resp B/P B/P Pulse O2 O2 F low FiO2 Mean Ox Delivery Rate 06/22 1712 85 100 30 06/22 1504 36.6 06/22 1409 83 100 30 06/22 1301 83 20 100 06/22 1300 83 14 115/70 87 100 06/22 1245 79 11 118/69 89 100 06/22 1230 79 13 118/68 87 100 06/22 1215 78 14 118/70 87 100 06/22 1200 36.6 06/22 1200 78 19 118/71 90 100 06/22 1145 78 15 115/66 85 98 06/22 1144 78 115/66 86 98 06/22 1109 36.1 79 11 100 06/22 1100 36.1 78 8 110/60 79 100 06/22 1045 36.2 83 21 106/58 77 99 06/22 1030 36.2 78 8 108/60 78 100 06/22 1015 36.2 79 8 109/59 78 100 06/22 1000 36.3 78 10 105/58 75 99 06/22 0945 36.3 79 7 104/57 75 99 06/22 0930 36.4 78 10 101/56 72 99 06/22 0916 36.4 79 15 102/57 77 99 06/22 0915 36.4 79 8 99 06/22 0914 99 Ventilator 30 06/22 0914 79 99 30 06/22 0900 36.4 78 10 110/66 80 100 06/22 0845 36.5 77 9 110/67 82 100 06/22 0830 36.6 77 8 107/65 81 100 06/22 0815 36.6 78 11 105/64 80 100 06/22 0800 30 06/22 0800 36.6 78 11 101/63 78 100 06/22 0745 36.7 79 11 101/62 77 100 06/22 0730 36.7 79 7 99/59 74 100 06/22 0724 Ventilator 15 40 06/22 0715 36.8 79 9 99/60 73 100 06/22 0700 36.9 79 9 100/58 74 100 06/22 0645 36.9 80 8 96/56 70 100 06/22 0630 37.0 83 11 98/57 75 100 06/22 0629 35 06/22 0615 37.1 84 14 98/54 70 100 06/22 0607 85 16 103/60 100 06/22 0604 85 100 35 06/22 0600 37.1 85 11 99/54 71 100 06/22 0545 37.2 86 15 99/56 72 100 06/22 0530 37.2 86 11 103/59 74 100 06/22 0515 37.3 82 10 112/65 84 98 06/22 0500 37.3 82 11 110/61 81 98 06/22 0445 37.4 85 16 110/62 81 98 06/22 0430 37.4 87 16 114/65 85 98 06/22 0415 37.5 89 16 113/63 83 98 06/22 0400 37.5 06/22 0400 37.5 89 17 113/65 83 98 06/22 0345 37.5 90 16 115/68 85 98 06/22 0330 37.5 90 21 117/70 89 100 06/22 0321 89 97 40 06/22 0315 37.5 90 15 117/64 85 100 06/22 0300 37.5 90 14 113/65 83 100 06/22 0245 37.5 91 17 115/65 85 99 06/22 0230 37.5 91 12 113/64 84 100 06/22 0215 37.4 92 21 114/68 86 100 06/22 0200 37.4 91 7 112/67 84 100 06/22 0145 37.4 91 13 108/64 80 100 06/22 0130 37.3 91 11 109/63 82 100 06/22 0115 37.3 90 16 106/63 80 100 06/22 0100 37.2 90 19 105/64 78 100 06/22 0045 37.2 90 9 104/63 78 99 06/22 0030 37.1 91 2 104/61 78 100 06/22 0015 37.0 90 3 101/61 76 100 06/22 0000 37.1 06/22 0000 36.9 90 2 100/58 75 100 06/21 2345 36.9 90 0 102/64 78 100 06/21 2330 36.8 89 6 100/63 77 100 06/21 2315 36.7 89 0 98/55 72 100 06/21 2300 36.6 89 21 98/58 74 100 06/21 2245 36.5 88 0 96/57 72 100 06/21 2230 36.4 88 0 100/57 77 100 06/21 2215 36.3 89 0 101/62 76 100 06/21 2200 36.2 88 0 96/58 71 100 06/21 2145 36.2 89 0 99/57 75 100 06/21 2130 36.1 90 0 104/58 76 100 06/21 2115 36.0 90 9 111/60 80 100 06/21 2101 35.9 90 9 115/61 80 100 06/21 2045 35.7 90 22 110/68 84 100 06/21 2035 Ventilator 15 40 06/21 2031 35.6 91 18 120/78 94 100 06/21 2015 35.5 06/21 2000 36.4 06/21 2000 35.4 91 15 114/75 90 99 06/21 1843 34.9 85 4 98 PATIENT WEIGHT: Weight (lb): 216 Weight (oz): 11.43 Weight (kg): 98.300 Physical Exam General appearance: intubated and sedated Head/Eyes: atraumatic, normocephalic, PERRL ENT: moist mucosal membranes, normal nose Neck: non-tender, supple/no meningismus Cardiovascular: CV assessment: regular rate and rhythm, no murm ur Respiratory: no distress, coarse breathsounds, m echanically ventialted Abdomen: soft, non-tender Upper extremity: UE assessment: normal capillary refill, normal temperature Lower extremity: LE assessment: normal capillary refill, normal temperature, no edema Musculoskeletal: normal inspection Neuro/RADIOTELEGRAPHIST: intubated and sedated, withdraws to p ainful stimuli Diagnosis, Assessment Plan Free Text DxA P Notes Free Text DxA P Notes: 1. Hypertensive urgency/emergency - presented with severely elevated BP requiring 2 IV infusions, subsequently suffered PEA cardiac arrest - BP now stable, cont anti-hypertensive therapy - PO medications via NG 2. Cardiac arrest - PEA in etiology, pt became hypothermic and sub sequently bradycardic 3. Type B aortic dissection s/p EVAR - has residual descending aortic dissect ion extending into iliacs. No evidence of rupture on CTA. Reviewed by vascular surgery - appreciate assitance - needs aggressive BP Control. 4. Acute on chronic systolic heart failure - likely hypertensive heart disease due to long standing elevated BP - warm and well perfused on examination - Lactic acid normal this AM - monitor UOP 5. Shock - undifferentiated - warm and well perfused on examination this AM. Hemodynamically stable, does not appear to be in cardiogenic shock as of this morning - lactic acid normal 6. JENNIFER on CKD stage 3 - likely secondary to fluctuation in BP - nephrology following, appreciate recommendatio ns - monitor UOP 7. Acute hypoxic respiratory failure - wean from ventilator as tolerated - per ICU te am Will follow. Please call if questions. [facility] Cardiology Electronically Signed by Dat Stahl 06/22/20 at 1842 RPT #:[id number] END OF REPORT 2020-06-22 09:59:00-00:00 [facility]) Neurology Consultation Note REPORT#:[id number] REPORT STATUS: Signed DATE:06/22/20 TIME: 958 PATIENT: JORGE GOINS UNIT #: [id number] ROOM/BED: [place] [address]-A : 86 AGE: 34 SEX: M ATTEND: Luis M Olmedo MD ADM AUTHOR: Jefferson Darling DO R1 * ALL edits or amendments must be made on the el [employer]/computer document * History of Present Illness HPI Chief complaint: Cardiac Arrest, JENNIFER, Lethargy, AMS HPI: Patient is a 34 year old mal e with history of aortic dissection s/p EVAR by Dr. Ike celestin , HTN, CHF and medication non-complia nce came in for hypertensive urgency with SBP of 220s and HR in 80-90s. Per p revious record recommendation from vascular surgery patient will need to have BP control <120. History is limited because patient is drowsy from ativan gi [place] prior to exam. CT chest showed stable aortic dissection with no mention of endoleak. CTA of chest however was concerning for multiple focal PNA. R apid Covid is negative. COVID PCR is also negative. Patien t is satting 90s on 2L of NC. PE is showed lethargic patient otherwise unremarkab le. Esmolol and cardene drip ordered. Cardiology and Vascular surgery were consulted. Neurology was consulted for patient's lethargy and AMS which started yesterdday. Patient coded once yesterday and almost coded again as per nursing reports. On examinattion, patient is sed ated and intubated. He is off pressors and sedation with Versed since yesterday, but is still unresponsive because of the long-term effect of Versed. History - Adult longitudinal Past medical history: Reports: Congestive heart failure, Hypertension. Additional medical history: type B dissection s/p TEVAR Past surgical history: Reports: Cholecystectomy. Additional surgical history: TEVAR Family history: Reports: Diabetes, Hypertension. Additional family history: Mother alive history of diabetes hypertension Father unknown Alcohol use: Denies EtOH use Drug use: Denies recreational drugs Smoking status for patients 13 years old or olde r: Unknown,if ever smoked Other social history: Unemployed, Local resident , Good social support Additional social history: single he works in [employer] he denies any alcoh ol use or tobacco use Allergies: Coded Allergies: Iodine and Iodide Containing Produc (Severe, HIV ES 11/19/19) shellfish derived (Intermediate, RASH 11/19/19) Objective General VS: Last Documented: Result Date Time Pulse Ox 99 06/22 914 FiO2 30 06/22 0914 O2 Delivery Ventilator 06/22 914 Pulse 79 06/22 0914 O2 Flow Rate 15 06/22 0724 B/P 103/60 06/22 0607 Resp 16 06/22 06 B/P Mean 71 06/22 06 Temp 37.1 06/22 0600 PATIENT WEIGHT: Weight (lb): 216 Weight (oz): 11.43 Weight (kg): 98.300 Medications Current Home Medications ALBUTEROL (PROAIR HFA 90 MCG/ACT 8.5 GM) 2 PUFF INH RTQ6H PRN PRN SOB ASPIRIN EC (ECOTRIN) 81 MG PO DAILY CARVEDILOL (COREG) 25 MG PO BID MEALS ACETAMINOPHEN/CODEINE (TYLENOL WITH CODE INE #4 300/60 MG) 1 TAB PO Q6H PRN PRN PAIN ATORVASTATIN (LIPITOR) 20 MG PO BEDTIME LOSARTAN (COZAAR) 100 MG PO DAILY NIFEdipine CC (ADALAT CC) 90 MG PO Q12HR HYDROCHLOROTHIAZIDE (HYDRODIURIL) 25 MG PO DAILY Active Meds + DC'd Last 24 Hrs Dextrose/Water 1,000 ML .[id number] IV Sterile Water 10 ML .STK-MED ONE IV (DC) Sodium Chloride 1,000 ML BOLUS ONCE ONE IV (DC) Dextrose/Water 25 ML ASDIR PRN IV Glucagon 1 MG ASDIR PRN IM Insulin Human Lispro LOW DOSE SCALE ASDIR SUBQ Sterile Water 1 ML ASDIR PRN IM Propofol 100 ML TITRATE IV (CKD) Midazolam HCl 100 ML TITRATE IV (CKD) Propofol 100 MG ONCE ONE IV (CAN) Epinephrine 8 MG TITRATE IV (CKD) Sodium Chloride 242 ML Norepinephrine Bitartrate 16 MG TITRATE IV Sodium Chloride 234 ML Perflutren Lipid Microsphere DIRECTED ONCE PRN IV Sodium Chloride DIRECTED ONCE PRN IV Sodium Chloride 5 ML ONCE PRN IV Diphenhydramine HCl 50 MG ONCE@1400 IV (DC) Sodium Chloride 1,000 ML BOLUS ONCE ONE IV (DC) Fentanyl Citrate 0 .STK-MED ONE .ROUTE (DC) Epinephrine HCl 254 ML TITRATE IV (DC) Epinephrine HCl 254 ML TITRATE IV (DC) Dextrose/Water 0 .STK-MED ONE .ROUTE (DC) Fentanyl Citrate 50 ML TITRATE IV (CKD) Propofol 100 ML .Q24H ONE IV (DC) Azithromycin 500 MG DAILY IV Sodium Chloride 250 ML Norepinephrine Bitartrate 254 ML TITRATE IV (DC) Cefepime HCl 1 GM Q12HR IV Sterile Water 10 ML Famotidine 20 MG DAILY PO Morphine Sulfate 2 MG Q4H PRN PRN IV Heparin Sodium (Porcine) 5,000 UNIT Q12HR SUBQ Mupirocin 1 APPLIC BID NASAL Hydrocodone Bitart/Acetaminophen 1 TAB Q6H PRN P RN PO Carvedilol 25 MG BID MEALS PO (DA) Esmolol HCl 250 ML TITRATE IV (CKD) Nicardipine HCl 250 ML TITRATE IV Physical Exam General appearance: altered mental status, cachectic/emaciated, lethargic, obese Head/Eyes: atraumatic, normocephalic ENT: moist mucosal membranes Neck: non-tender, supple/no meningismus, no brui t / NL carotids, no masses or swelling Cardiovascular: irregular rate and rhythm, murmu r Respiratory: decreased breath sounds, intubated/ mech vent Abdomen: non-tender, normal bowel sounds, soft Neuro/RADIOTELEGRAPHIST: lethargic, came o ff versed sedation yesterday intubated does not open eyes or follow commands Results Findings/Data: Laboratory Tests 06/22 06/21 0441 1348 Blood Gas Puncture Site Art Line Art Line ABG pH (7.35 - 7.45 pH units) 7.39 7.28 *L ABG pCO2 (35 - 48 mmHg) 36.0 42.7 ABG pO2 (83 - 108 mmHg) 107.3 516.7 H ABG PO2/FiO2 Ratio (mm/Hg) 268.25 516.70 ABG HCO3 (21 - 28 mmol/L) 21.7 19.9 L ABG Total CO2 (22 - 29 mmol/L) 21.7 L 20.3 L ABG O2 Sat Calc/Denise (94 - 98 %) 98.1 H 100.0 H ABG Base Excess (-2 - 3 mmol/L) -2.9 L -6.6 L Emmanuel Test N/A N/A Sodium (138 - 146 mmol/L) 141 134 L Potassium (3.5 - 4.5 mmol/L) 3.7 5.7 H Ionized Calcium (1.15 - 1.33 MMOL/L) 0.97 L 0.9 3 L Respiration Rate (12 - 20 /MIN) 16 20 O2 Delivery Device Adult Vent Adult Vent Vent Mode VC ASSIST CONTROL Vent Rate (/MIN) 16 FiO2 (%) 40 100 Instrument (Specimen Descript) Arterial Arteria l Laboratory Tests 06/22 06/22 06/22 06/22 06/22 0921 0921 0650 0639 0448 Chemistry POC Glucose (74 - 106 MG/DL) 99 55 L 55 L Lactic Acid (0.7 - 2.0 mmol/L) 1.1 Troponin I (0.012 - 0.033 ng/mL) 0.699 *H 06/22 06/22 06/22 06/22 06/22 0441 0234 0232 0232 0022 Chemistry Sodium (137 - 145 mmol/L) 138 Potassium (3.4 - 5.0 mmol/L) 4.3 Chloride (98 - 107 mmol/L) 102 Carbon Dioxide (22 - 30 mmol/L) 23 BUN (9 - 20 mg/dL) 76 H Creatinine (0.7 - 1.3 mg/dL) 3.3 H Glomerular Filtr Rate (>60) 28 L Glucose (74 - 106 mg/dL) 83 POC Glucose (74 - 100 mg/dL) 44 *L 86 169 H Lactic Acid (0.7 - 2.0 mmol/L) 2.6 *H Calcium (8.4 - 10.2 mg/dL) 7.6 L 06/21 1440 1440 Chemistry Sodium (137 - 145 mmol/L) 137 Potassium (3.4 - 5.0 mmol/L) 4.8 Chloride (98 - 107 mmol/L) 101 Carbon Dioxide (22 - 30 mmol/L) 12 L BUN (9 - 20 mg/dL) 62 H Creatinine (0.7 - 1.3 mg/dL) 2.9 H Glomerular Filtr Rate (>60) 32 L Glucose (74 - 106 mg/dL) 296 H POC Glucose (74 - 106 MG/DL) 258 H Lactic Acid (0.7 - 2.0 mmol/L) 6.2 *H 11.2 *H Calcium (8.4 - 10.2 mg/dL) 7.5 L Troponin I (0.012 - 0.033 ng/mL) 0.333 *H 0.206 *H Laboratory Tests 06/22 06/21 0232 1440 Hematology WBC (5.0 - 12.0 x10 3/uL) 17.1 H 19.0 H RBC (4.70 - 6.10 x10 6/uL) 4.18 L 3.78 L Hgb (14.0 - 18.0 g/dL) 12.0 L 11.2 L Hct (37.0 - 49.0 %) 38.9 35.6 L MCV (80 - 94 fL) 93 94 MCH (27 - 31 pg) 28.7 29.6 MCHC (33 - 37 g/dL) 30.8 L 31.5 L RDW (11.5 - 15.5 %) 16.3 H 16.0 H Plt Count (130 - 400 x10 3/uL) 389 352 MPV (9.4 - 16.4 fL) 10.0 10.6 Neut % (Auto) (43 - 65 %) 83.4 H 83.6 H Lymph % (Auto) (20.5 - 45.5 %) 7.6 L 11.2 L Citrus % (Auto) (5.5 - 11.7 %) 8.2 3.4 L Eos % (Auto) (0.9 - 2.9 %) 0.0 L 0.0 L Baso % (Auto) (0.2 - 1.0 %) 0.1 L 0.2 Neut # (Auto) (2.2 - 4.8 x10 3/uL) 14.22 H 15. 91 H Lymph # (Auto) (1.3 - 2.9 x10 3/uL) 1.30 2.12 Citrus # (Auto) (0.3 - 0.8 x10 3/uL) 1.39 H 0.64 Eos # (Auto) (0.0 - 0.2 x10 3/uL) 0.00 0.00 Baso # (Auto) (0.0 - 0.1 x10 3/uL) 0.02 0.03 Immature Gran % (0.0 - 2.0 %) 0.7 1.6 Nucleated RBC % (0 - 1.0 %) 0.6 0.5 Laboratory Tests 06/21 2035 Toxicology Urine Opiates Screen (NEGATIVE) POSITIVE H Ur Barbiturates, Qual (NEGATIVE) POSITIVE H Ur Phencyclidine Scrn (NEGATIVE) NEGATIVE Ur Amphetamines Screen (NEGATIVE) NEGATIVE U Benzodiazepines Scrn (NEGATIVE) NEGATIVE Urine Cocaine Screen (NEGATIVE) NEGATIVE Urine Cannabinoids (NEGATIVE) NEGATIVE Radiology Data: Recent Impressions: CAT SCAN - CT ANGIO CHEST 06/21 1454 Report Impression - Status: SIGNED Entered: 06/21/2020 714 IMPRESSION: 1. 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 There is no active extravasation of contrast or periaortic hematoma . There continues to be contrast enhancement posterior to the stent b ut within the original lumen of the abdominal aorta in the excluded por tion of the abdominal aorta. 2. Development of distended fluid-filled loops o f small bowel concerning for obstruction measuring up to 4.3 c m in size with questionable area of increased density in a prox imal loop of small bowel just the left of midline which could relat e to ingested material. If there is decreasing hemoglobin or h ematocrit, small bowel intestinal bleed is not excluded. 3. Right basilar pulmonary opacities with patchy bilateral pulmonary opacities is similar to prior exam concerning fo r bilateral pneumonia. Edema is not excluded given the cardiomegaly an d reflux of contrast into the inferior vena cava. 4. Inflammatory change surrounding the kidneys i s now present. Please correlate for acute renal insufficiency. 5. Other findings as above. Dr. Vargas called these findings to Dr. Kleber Newby on 06/21/2020 3:12 PM Impression By: [email or web address] - Erick Vargas MD CAT SCAN - CTA ABD PEL W CONT 06/21 1454 Report Impression - Status: SIGNED Entered: 06/21/2020 2044 IMPRESSION: 1. 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 There is no active extravasation of contrast or periaortic hematoma . There continues to be contrast enhancement posterior to the stent b ut within the original lumen of the abdominal aorta in the excluded por tion of the abdominal aorta. 2. Development of distended fluid-filled loops o f small bowel concerning for obstruction measuring up to 4.3 c m in size with questionable area of increased density in a prox imal loop of small bowel just the left of midline which could relat e to ingested material. If there is decreasing hemoglobin or h ematocrit, small bowel intestinal bleed is not excluded. 3. Right basilar pulmonary opacities with patchy bilateral pulmonary opacities is similar to prior exam concerning fo r bilateral pneumonia. Edema is not excluded given the cardiomegaly an d reflux of contrast into the inferior vena cava. 4. Inflammatory change surrounding the kidneys i s now present. Please correlate for acute renal insufficiency. 5. Other findings as above. Dr. Vargas called these findings to Dr. Kleber Newby on 06/21/2020 3:12 PM Impression By: Carmen Vargas MD RADIOLOGY - XR CHEST 1 V 06/21 1545 Report Impression - Status: SIGNED Entered: 06/21/2020 1601 IMPRESSION: As above. Impression By: Carmen Vargas MD RADIOLOGY - XR CHEST 1 V 06/21 1725 Report Impression - Status: SIGNED Entered: 06/21/2020 1745 IMPRESSION: Interval placement of right-sided central venous catheters, with the tips projecting over the superior vena cava. Interval placement of NG tube, with the distal p ortion coursing to the left abdomen. Unchanged ET tube. Impression By: Ramesh - Fátima Spears RADIOLOGY - XR CHEST 1 V 06/22 0425 Report Impression - Status: SIGNED Entered: 06/22/2020 0504 IMPRESSION: Support tubes and line are unchanged. Cardiomegaly. Impression By: [email or web address] - Carloz Hayden MD Diagnosis, Assessment Plan Problem List/A P: 1. Hypertensive urgency 2. Noncompliance 3. Generalized headaches 4. Viral illness 5. Prostatitis 6. Hypertensive urgency 7. Acute prostatitis with hematuria 8. High blood pressure 9. Uncontrolled hypertension 10. Testicular pain, right 11. Abdominal pain 12. Back pain 13. Hypertension 14. Medication refill 15. Asthma 16. Noncompliance w/medication treatment due to intermit use of medication 17. Acute asthma 18. Acute asthma exacerbation 19. Asthma exacerbation 20. New onset of congestive heart failure 21. Shortness of breath 22. Abnormal kidney function 23. CHF exacerbation 24. JENNIFER (acute kidney injury) 25. Hypokalemia 26. CHF (congestive heart failure) 27. Left against medical advice 28. Chest pain 29. Heart failure 30. Hypertensive emergency 31. Cholecystitis 32. Pulmonary edema 33. Elevated troponin 34. Aortic dissection 35. Dental abscess 36. COVID-19 37. Multifocal neurological deficit 38. Multifocal pneumonia 39. Accelerated essential hypertension Free Text DxA P Notes: #Lethargy AMS- Likely 2/2 metabolic encephalopat hy -most likely 2/2 metabolic encephalopathy -s/p code yesterday, successfully rescucitated -Cr 3.3 today -CT brain yesterday on 06/21 showed no acute intracranial hemorrhage, with only mild chronic microvascular ischemic injuries. Al so, there are faint calcifications in the bilate ral basal ganglia, but the CT brainn is essentially unchanged since 05/16/2015. -EEG pending -No need for brain MRI for now -Continue with observation -D/w nurse -Will continue to follow closely Discussed with the attending neurologist, Dr. Chino . at 1219 RPT #:[id number] END OF REPORT 2020-06-22 09:59:00-00:00 [facility] Neurology Consultation Note REPORT#:[id number] REPORT STATUS: Signed DATE:06/22/20 TIME: 958 PATIENT: JORGE GOINS UNIT #: [id number] ROOM[address]BED: [address] : [address] AGE: 34 SEX: M ATTEND: Luis M Olmedo MD ADM AUTHOR: Jefferson Darling DO R1 * ALL edits or amendments must be made on the [employer]/computer document * Jefferson Darling 06/22/20 0959: History of Present Illness HPI Chief complaint: Cardiac Arrest, JENNIFER, Lethargy, AMS HPI: Patient is a 34 year old mal e with history of aortic dissection s/p EVAR by Dr. Ramires group , HTN, CHF and medication non-complia nce came in for hypertensive urgency with SBP of 220s and HR in 80-90s. Per p revious record recommendation from vascular surgery patient will need to have BP control <120. History is limited because patient is drowsy from ativan gi dal[place] prior to exam. CT chest showed stable aortic dissection with no mention of endoleak. CTA of chest however was concerning for multiple focal PNA. R apid Covid is negative. COVID PCR is also negative. Patien t is satting 90s on 2L of NC. PE is showed lethargic patient otherwise unremarkab le. Esmolol and cardene drip ordered. Cardiology and Vascular surgery were consulted. Neurology was consulted for patient's lethargy and AMS which started yesterdday. Patient coded once yesterday and almost coded again as per nursing reports. On examinattion, patient is sed ated and intubated. He is off pressors and sedation with Versed since yesterday, but is still unresponsive because of the long-term effect of Versed. History - Adult longitudinal Past medical history: Reports: Congestive heart failure, Hypertension. Additional medical history: type B dissection s/p TEVAR Past surgical history: Reports: Cholecystectomy. Additional surgical history: TEVAR Family history: Reports: Diabetes, Hypertension. 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 Allergies: Coded Allergies: Iodine and Iodide Containing Produc (Severe, HIV ES 11/19/19) shellfish derived (Intermediate, RASH 11/19/19) Objective General VS: Last Documented: Result Date Time Pulse Ox 99 06/22 914 FiO2 30 06/22 914 O2 Delivery Ventilator 06/22 914 Pulse 79 06/22 914 O2 Flow Rate 15 06/22 0724 B/P 103/60 06/22 607 Resp 16 06/22 607 B/P Mean 71 06/22 600 Temp 37.1 06/22 600 PATIENT WEIGHT: Weight (lb): 216 Weight (oz): 11.43 Weight (kg): 98.300 Medications Current Home Medications ALBUTEROL (PROAIR HFA 90 MCG/ACT 8.5 GM) 2 PUFF INH RTQ6H PRN PRN SOB ASPIRIN EC (ECOTRIN) 81 MG PO DAILY CARVEDILOL (COREG) 25 MG PO BID MEALS ACETAMINOPHEN/CODEINE (TYLENOL WITH CODE INE #4 300/60 MG) 1 TAB PO Q6H PRN PRN PAIN ATORVASTATIN (LIPITOR) 20 MG PO BEDTIME LOSARTAN (COZAAR) 100 MG PO DAILY NIFEdipine CC (ADALAT CC) 90 MG PO Q12HR HYDROCHLOROTHIAZIDE (HYDRODIURIL) 25 MG PO DAILY Active Meds + DC'd Last 24 Hrs Dextrose/Water 1,000 ML .[id number] IV Sterile Water 10 ML .STK-MED ONE IV (DC) Sodium Chloride 1,000 ML BOLUS ONCE ONE IV (DC) Dextrose/Water 25 ML ASDIR PRN IV Glucagon 1 MG ASDIR PRN IM Insulin Human Lispro LOW DOSE SCALE ASDIR SUBQ Sterile Water 1 ML ASDIR PRN IM Propofol 100 ML TITRATE IV (CKD) Midazolam HCl 100 ML TITRATE IV (CKD) Propofol 100 MG ONCE ONE IV (CAN) Epinephrine 8 MG TITRATE IV (CKD) Sodium Chloride 242 ML Norepinephrine Bitartrate 16 MG TITRATE IV Sodium Chloride 234 ML Perflutren Lipid Microsphere DIRECTED ONCE PRN IV Sodium Chloride DIRECTED ONCE PRN IV Sodium Chloride 5 ML ONCE PRN IV Diphenhydramine HCl 50 MG ONCE@1400 IV (DC) Sodium Chloride 1,000 ML BOLUS ONCE ONE IV (DC) Fentanyl Citrate 0 .STK-MED ONE .ROUTE (DC) Epinephrine HCl 254 ML TITRATE IV (DC) Epinephrine HCl 254 ML TITRATE IV (DC) Dextrose/Water 0 .STK-MED ONE .ROUTE (DC) Fentanyl Citrate 50 ML TITRATE IV (CKD) Propofol 100 ML .Q24H ONE IV (DC) Azithromycin 500 MG DAILY IV Sodium Chloride 250 ML Norepinephrine Bitartrate 254 ML TITRATE IV (DC) Cefepime HCl 1 GM Q12HR IV Sterile Water 10 ML Famotidine 20 MG DAILY PO Morphine Sulfate 2 MG Q4H PRN PRN IV Heparin Sodium (Porcine) 5,000 UNIT Q12HR SUBQ Mupirocin 1 APPLIC BID NASAL Hydrocodone Bitart/Acetaminophen 1 TAB Q6H PRN P RN PO Carvedilol 25 MG BID MEALS PO (DA) Esmolol HCl 250 ML TITRATE IV (CKD) Nicardipine HCl 250 ML TITRATE IV Physical Exam General appearance: altered mental status, cachectic/emaciated, lethargic, obese Head/Eyes: atraumatic, normocephalic ENT: moist mucosal membranes Neck: non-tender, supple/no meningismus, no brui t / NL carotids, no masses or swelling Cardiovascular: irregular rate and rhythm, murmu r Respiratory: decreased breath sounds, intubated/ mech vent Abdomen: non-tender, normal bowel sounds, soft Neuro/RADIOTELEGRAPHIST: lethargic, came o ff versed sedation yesterday intubated does not open eyes or follow commands Results Findings/Data: Laboratory Tests 06/22 06/21 0441 1348 Blood Gas Puncture Site Art Line Art Line ABG pH (7.35 - 7.45 pH units) 7.39 7.28 *L ABG pCO2 (35 - 48 mmHg) 36.0 42.7 ABG pO2 (83 - 108 mmHg) 107.3 516.7 H ABG PO2/FiO2 Ratio (mm/Hg) 268.25 516.70 ABG HCO3 (21 - 28 mmol/L) 21.7 19.9 L ABG Total CO2 (22 - 29 mmol/L) 21.7 L 20.3 L ABG O2 Sat Calc/Denise (94 - 98 %) 98.1 H 100.0 H ABG Base Excess (-2 - 3 mmol/L) -2.9 L -6.6 L Emmanuel Test N/A N/A Sodium (138 - 146 mmol/L) 141 134 L Potassium (3.5 - 4.5 mmol/L) 3.7 5.7 H Ionized Calcium (1.15 - 1.33 MMOL/L) 0.97 L 0.9 3 L Respiration Rate (12 - 20 /MIN) 16 20 O2 Delivery Device Adult Vent Adult Vent Vent Mode VC ASSIST CONTROL Vent Rate (/MIN) 16 FiO2 (%) 40 100 Instrument (Specimen Descript) Arterial Arteri al Laboratory Tests 06/22 06/22 06/22 06/22 06/22 0921 0921 0650 0653 0448 Chemistry POC Glucose (74 - 106 MG/DL) 99 55 L 55 L Lactic Acid (0.7 - 2.0 mmol/L) 1.1 Troponin I (0.012 - 0.033 ng/mL) 0.699 *H 06/22 06/22 06/22 06/22 06/22 0441 0234 0232 0232 0022 Chemistry Sodium (137 - 145 mmol/L) 138 Potassium (3.4 - 5.0 mmol/L) 4.3 Chloride (98 - 107 mmol/L) 102 Carbon Dioxide (22 - 30 mmol/L) 23 BUN (9 - 20 mg/dL) 76 H Creatinine (0.7 - 1.3 mg/dL) 3.3 H Glomerular Filtr Rate (>60) 28 L Glucose (74 - 106 mg/dL) 83 POC Glucose (74 - 100 mg/dL) 44 *L 86 169 H Lactic Acid (0.7 - 2.0 mmol/L) 2.6 *H Calcium (8.4 - 10.2 mg/dL) 7.6 L 06/21 1440 1440 Chemistry Sodium (137 - 145 mmol/L) 137 Potassium (3.4 - 5.0 mmol/L) 4.8 Chloride (98 - 107 mmol/L) 101 Carbon Dioxide (22 - 30 mmol/L) 12 L BUN (9 - 20 mg/dL) 62 H Creatinine (0.7 - 1.3 mg/dL) 2.9 H Glomerular Filtr Rate (>60) 32 L Glucose (74 - 106 mg/dL) 296 H POC Glucose (74 - 106 MG/DL) 258 H Lactic Acid (0.7 - 2.0 mmol/L) 6.2 *H 11.2 *H Calcium (8.4 - 10.2 mg/dL) 7.5 L Troponin I (0.012 - 0.033 ng/mL) 0.333 *H 0.20 6 *H Laboratory Tests 06/22 1440 Hematology WBC (5.0 - 12.0 x10 3/uL) 17.1 H 19.0 H RBC (4.70 - 6.10 x10 6/uL) 4.18 L 3.78 L Hgb (14.0 - 18.0 g/dL) 12.0 L 11.2 L Hct (37.0 - 49.0 %) 38.9 35.6 L MCV (80 - 94 fL) 93 94 MCH (27 - 31 pg) 28.7 29.6 MCHC (33 - 37 g/dL) 30.8 L 31.5 L RDW (11.5 - 15.5 %) 16.3 H 16.0 H Plt Count (130 - 400 x10 3/uL) 389 352 MPV (9.4 - 16.4 fL) 10.0 10.6 Neut % (Auto) (43 - 65 %) 83.4 H 83.6 H Lymph % (Auto) (20.5 - 45.5 %) 7.6 L 11.2 L Citrus % (Auto) (5.5 - 11.7 %) 8.2 3.4 L Eos % (Auto) (0.9 - 2.9 %) 0.0 L 0.0 L Baso % (Auto) (0.2 - 1.0 %) 0.1 L 0.2 Neut # (Auto) (2.2 - 4.8 x10 3/uL) 14.22 H 15.9 1 H Lymph # (Auto) (1.3 - 2.9 x10 3/uL) 1.30 2.12 Citrus # (Auto) (0.3 - 0.8 x10 3/uL) 1.39 H 0.64 Eos # (Auto) (0.0 - 0.2 x10 3/uL) 0.00 0.00 Baso # (Auto) (0.0 - 0.1 x10 3/uL) 0.02 0.03 Immature Gran % (0.0 - 2.0 %) 0.7 1.6 Nucleated RBC % (0 - 1.0 %) 0.6 0.5 Laboratory Tests 06/21 2035 Toxicology Urine Opiates Screen (NEGATIVE) POSITIVE H Ur Barbiturates, Qual (NEGATIVE) POSITIVE H Ur Phencyclidine Scrn (NEGATIVE) NEGATIVE Ur Amphetamines Screen (NEGATIVE) NEGATIVE U Benzodiazepines Scrn (NEGATIVE) NEGATIVE Urine Cocaine Screen (NEGATIVE) NEGATIVE Urine Cannabinoids (NEGATIVE) NEGATIVE Radiology Data: Recent Impressions: CAT SCAN - CT ANGIO CHEST 06/21 4373 Report Impression - Status: SIGNED Entered: 06/21/2020 3250 IMPRESSION: 1. 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 There is no active extravasation of contrast or periaortic hematoma . There continues to be contrast enhancement posterior to the stent b ut within the original lumen of the abdominal aorta in the excluded por tion of the abdominal aorta. 2. Development of distended fluid-filled loops o f small bowel concerning for obstruction measuring up to 4.3 c m in size with questionable area of increased density in a prox imal loop of small bowel just the left of midline which could relat e to ingested material. If there is decreasing hemoglobin or h ematocrit, small bowel intestinal bleed is not excluded. 3. Right basilar pulmonary opacities with patchy bilateral pulmonary opacities is similar to prior exam concerning fo r bilateral pneumonia. Edema is not excluded given the cardiomegaly an d reflux of contrast into the inferior vena cava. 4. Inflammatory change surrounding the kidneys i s now present. Please correlate for acute renal insufficiency. 5. Other findings as above. Dr. Vargas called these findings to Dr. Kleber Newby on 06/21/2020 3:12 PM Impression By: [email or web address] - Erick Vargas MD CAT SCAN - CTA ABD PEL W CONT 06/21 9098 Report Impression - Status: SIGNED Entered: 06/21/2020 1519 IMPRESSION: 1. 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 There is no active extravasation of contrast or periaortic hematoma . There continues to be contrast enhancement posterior to the stent b ut within the original lumen of the abdominal aorta in the excluded por tion of the abdominal aorta. 2. Development of distended fluid-filled loops o f small bowel concerning for obstruction measuring up to 4.3 c m in size with questionable area of increased density in a prox imal loop of small bowel just the left of midline which could relat e to ingested material. If there is decreasing hemoglobin or h ematocrit, small bowel intestinal bleed is not excluded. 3. Right basilar pulmonary opacities with patchy bilateral pulmonary opacities is similar to prior exam concerning fo r bilateral pneumonia. Edema is not excluded given the cardiomegaly an d reflux of contrast into the inferior vena cava. 4. Inflammatory change surrounding the kidneys i s now present. Please correlate for acute renal insufficiency. 5. Other findings as above. Dr. Vargas called these findings to Dr. Kleber Newby on 06/21/2020 3:12 PM Impression By: Carmen Vargas MD RADIOLOGY - XR CHEST 1 V 06/21 1545 Report Impression - Status: SIGNED Entered: 06/21/2020 1601 IMPRESSION: As above. Impression By: Carmen Vargas MD RADIOLOGY - XR CHEST 1 V 06/21 1725 Report Impression - Status: SIGNED Entered: 06/21/2020 1745 IMPRESSION: Interval placement of right-sided central venous catheters, with the tips projecting over the superior vena cava. Interval placement of NG tube, with the distal p ortion coursing to the left abdomen. Unchanged ET tube. Impression By: Ramesh Spears RADIOLOGY - XR CHEST 1 V 06/22 0425 Report Impression - Status: SIGNED Entered: 06/22/2020 0504 IMPRESSION: Support tubes and line are unchanged. Cardiomegaly. Impression By: [email or web address] Keyon Hayden MD Diagnosis, Assessment Plan Problem List/A P: 1. Hypertensive urgency 2. Noncompliance 3. Generalized headaches 4. Viral illness 5. Prostatitis 6. Hypertensive urgency 7. Acute prostatitis with hematuria 8. High blood pressure 9. Uncontrolled hypertension 10. Testicular pain, right 11. Abdominal pain 12. Back pain 13. Hypertension 14. Medication refill 15. Asthma 16. Noncompliance w/medication treatment due to intermit use of medication 17. Acute asthma 18. Acute asthma exacerbation 19. Asthma exacerbation 20. New onset of congestive heart failure 21. Shortness of breath 22. Abnormal kidney function 23. CHF exacerbation 24. JENNIFER (acute kidney injury) 25. Hypokalemia 26. CHF (congestive heart failure) 27. Left against medical advice 28. Chest pain 29. Heart failure 30. Hypertensive emergency 31. Cholecystitis 32. Pulmonary edema 33. Elevated troponin 34. Aortic dissection 35. Dental abscess 36. COVID-19 37. Multifocal neurological deficit 38. Multifocal pneumonia 39. Accelerated essential hypertension Free Text DxA P Notes: #Lethargy AMS- Likely 2/2 metabolic encephalopat hy -most likely 2/2 metabolic encephalopathy -s/p code yesterday, successfully rescucitated -Cr 3.3 today -CT brain yesterday on 06/21 showed no acute intracranial hemorrhage, with only mild chronic microvascular ischemic injuries. Al so, there are faint calcifications in the bilate ral basal ganglia, but the CT brainn is essentially unchanged since 05/16/2015. -EEG pending -No need for brain MRI for now -Continue with observation -D/w nurse -Will continue to follow closely Discussed with the attending neurologist, Dr. Chino . William Chino 06/22/20 1332: Diagnosis, Assessment Plan Free Text DxA P Notes: agree with above note/ plan by resident at 1219 at 1334 RPT #:[id number] END OF REPORT 2020-06-22 08:37:00-00:[address] [facility] ([facility]) Critical Care Progress Note REPORT#:[id number] REPORT STATUS: Signed DATE:06/22/20 TIME: 836 PATIENT: JORGE GOINS UNIT #: [id number] ROOM[address]BED: [address] : 86 AGE: 34 SEX: M ATTEND: Luis M Olmedo MD ADM AUTHOR: Esdras Shoemaker MD R1 * ALL edits or amendments must be made on the el [employer]/computer document * Subjective Comments: Pt this AM is off pressors a nd sedation, but still intubated. He is opening eyes to painful stimuli. Review of Systems ROS Unable to obtain due to: intubated Objective General VS/I O Last Documented: Result Date Time FiO2 40 06/22 0724 O2 Delivery Ventilator 06/22 07 O2 Flow Rate 15 06/22 0724 Pulse Ox 100 06/22 06 B/P 103/60 06/22 06 Pulse 85 06/22 0607 Resp 16 06/22 607 B/P Mean 71 06/22 600 Temp 37.1 06/22 600 24 hour I O ending at 0700: 06/22 0700 06/21 1900 Intake Total 1977. 3000.00 Output Total 225 500 Balance 1753.00 2500.00 Intake, IV 1977. 3000.00 Output, Urine 225 500 Patient 98.3 kg Weight Weight Bed scale Measurement Method PATIENT WEIGHT: Weight (lb): 216 Weight (oz): 11.43 Weight (kg): 98.300 Medications: Active Meds + DC'd Last 24 Hrs Sodium Chloride 1,000 ML BOLUS ONCE ONE IV (DC) Dextrose/Water 25 ML ASDIR PRN IV Glucagon 1 MG ASDIR PRN IM Insulin Human Lispro LOW DOSE SCALE ASDIR SUBQ Sterile Water 1 ML ASDIR PRN IM Propofol 100 ML TITRATE IV (CKD) Midazolam HCl 100 ML TITRATE IV (CKD) Propofol 100 MG ONCE ONE IV (CAN) Epinephrine 8 MG TITRATE IV (CKD) Sodium Chloride 242 ML Norepinephrine Bitartrate 16 MG TITRATE IV Sodium Chloride 234 ML Perflutren Lipid Microsphere DIRECTED ONCE PRN IV Sodium Chloride DIRECTED ONCE PRN IV Sodium Chloride 5 ML ONCE PRN IV Diphenhydramine HCl 50 MG ONCE@1400 IV (DC) Sodium Chloride 1,000 ML BOLUS ONCE ONE IV (DC) Fentanyl Citrate 0 .STK-MED ONE .ROUTE (DC) Epinephrine HCl 254 ML TITRATE IV (DC) Epinephrine HCl 254 ML TITRATE IV (DC) Dextrose/Water 0 .STK-MED ONE .ROUTE (DC) Fentanyl Citrate 50 ML TITRATE IV (CKD) Propofol 100 ML .Q24H ONE IV (CKD) Azithromycin 500 MG DAILY IV Sodium Chloride 250 ML Losartan Potassium 50 MG Q12H PO (DC) Norepinephrine Bitartrate 254 ML TITRATE IV (DC) Cefepime HCl 1 GM Q12HR IV Sterile Water 10 ML Famotidine 20 MG DAILY PO Hydrochlorothiazide 25 MG DAILY PO (DC) Losartan Potassium 100 MG DAILY PO (DC) Morphine Sulfate 2 MG Q4H PRN PRN IV Heparin Sodium (Porcine) 5,000 UNIT Q12HR SUBQ Mupirocin 1 APPLIC BID NASAL Nifedipine 90 MG Q12HR PO (DC) Hydrocodone Bitart/Acetaminophen 1 TAB Q6H PRN PRN PO Carvedilol 25 MG BID MEALS PO (DA) Esmolol HCl 250 ML TITRATE IV (CKD) Nicardipine HCl 250 ML TITRATE IV Physical Exam General appearance: lethargic, respiratory suppo rt Head/Eyes: atraumatic, normocephalic, EOMI Cardiovascular: normal heart sounds, normal S1 S 2, normal rate and rhythm Respiratory/Chest: aerating well, clear to auscu ltation Abdomen: soft, non-tender Extremities: no edema Results Findings/Data: Laboratory Tests 06/22/20 0232: [Embedded Image Not Available] 06/21/20 1440: [Embedded Image Not Available] 06/21/20 0841: [Embedded Image Not Available] 06/21/20 0841: [Embedded Image Not Available] Laboratory Tests 06/22 06/21 0441 1348 Blood Gas Puncture Site Art Line Art Line ABG pH (7.35 - 7.45 pH units) 7.39 7.28 *L ABG pCO2 (35 - 48 mmHg) 36.0 42.7 ABG pO2 (83 - 108 mmHg) 107.3 516.7 H ABG PO2/FiO2 Ratio (mm/Hg) 268.25 516.70 ABG HCO3 (21 - 28 mmol/L) 21.7 19.9 L ABG Total CO2 (22 - 29 mmol/L) 21.7 L 20.3 L ABG O2 Sat Calc/Denise (94 - 98 %) 98.1 H 100.0 H ABG Base Excess (-2 - 3 mmol/L) -2.9 L -6.6 L Emmanuel Test N/A N/A Sodium (138 - 146 mmol/L) 141 134 L Potassium (3.5 - 4.5 mmol/L) 3.7 5.7 H Ionized Calcium (1.15 - 1.33 MMOL/L) 0.97 L 0.9 3 L Respiration Rate (12 - 20 /MIN) 16 20 O2 Delivery Device Adult Vent Adult Vent Vent Mode VC ASSIST CONTROL Vent Rate (/MIN) 16 FiO2 (%) 40 100 Instrument (Specimen Descript) Arterial Arteri al Laboratory Tests 06/22 06/22 06/22 06/22 06/22 0650 0639 0448 0441 0234 Chemistry POC Glucose (74 - 106 MG/DL) 99 55 L 55 L 44 *L 86 06/22 06/22 06/22 06/21 06/21 0232 0232 2 2034 2034 Chemistry Sodium (137 - 145 mmol/L) 138 Potassium (3.4 - 5.0 mmol/L) 4.3 Chloride (98 - 107 mmol/L) 102 Carbon Dioxide (22 - 30 mmol/L) 23 BUN (9 - 20 mg/dL) 76 H Creatinine (0.7 - 1.3 mg/dL) 3.3 H Glomerular Filtr Rate (>60) 28 L Glucose (74 - 106 mg/dL) 83 POC Glucose (74 - 106 MG/DL) 169 H Lactic Acid (0.7 - 2.0 mmol/L) 2.6 *H 6.2 *H Calcium (8.4 - 10.2 mg/dL) 7.6 L Troponin I (0.012 - 0.033 ng/mL) 0.333 *H 06/21 1440 1440 1148 0913 Chemistry Sodium (137 - 145 mmol/L) 137 Potassium (3.4 - 5.0 mmol/L) 4.8 Chloride (98 - 107 mmol/L) 101 Carbon Dioxide (22 - 30 mmol/L) 12 L BUN (9 - 20 mg/dL) 62 H Creatinine (0.7 - 1.3 mg/dL) 2.9 H Glomerular Filtr Rate (>60) 32 L Glucose (74 - 106 mg/dL) 296 H POC Glucose (74 - 106 MG/DL) 258 H Lactic Acid (0.7 - 2.0 mmol/L) 11.2 *H 9.6 *H Calcium (8.4 - 10.2 mg/dL) 7.5 L CK-MB (CK-2) (0.5 - 5.0 ng/mL) 2.71 Troponin I (0.012 - 0.033 ng/mL) 0.206 *H 06/21 06/21 06/21 06/21 06/21 0841 0841 0841 0841 0839 Chemistry Sodium (137 - 145 mmol/L) 135 L Potassium (3.4 - 5.0 mmol/L) 4.4 Chloride (98 - 107 mmol/L) 104 Carbon Dioxide (22 - 30 mmol/L) 14 L BUN (9 - 20 mg/dL) 64 H Creatinine (0.7 - 1.3 mg/dL) 2.7 H Glomerular Filtr Rate (>60) 35 L Glucose (74 - 106 mg/dL) 125 H POC Glucose (74 - 106 MG/DL) 134 H Lactic Acid (0.7 - 2.0 mmol/L) 4.9 *H Calcium (8.4 - 10.2 mg/dL) 8.4 Magnesium (1.6 - 2.3 mg/dL) 2.4 H Total Bilirubin (0.2 - 1.3 mg/dL) 1.3 Conjugated Bilirubin (0 - 0.3 mg/dL) 0 Unconjugated Bilirubin (0 - 1.1 0.4 mg/dL) AST (15 - 46 U/L) 332 H ALT (0 - 34 U/L) 198 H Total Alk Phosphatase (38 - 126 U/L) 89 Ammonia (9 - 30 umol/L) 15 Troponin I (0.012 - 0.033 ng/mL) 0.118 H Total Protein (6.3 - 8.2 g/dL) 6.1 L Albumin (3.5 - 5.0 g/dL) 2.9 L Laboratory Tests 06/22 06/21 06/21 0232 1440 0841 Hematology WBC (5.0 - 12.0 x10 3/uL) 17.1 H 19.0 H 17.0 H RBC (4.70 - 6.10 x10 6/uL) 4.18 L 3.78 L 3.86 L Hgb (14.0 - 18.0 g/dL) 12.0 L 11.2 L 11.4 L Hct (37.0 - 49.0 %) 38.9 35.6 L 34.9 L MCV (80 - 94 fL) 93 94 90 MCH (27 - 31 pg) 28.7 29.6 29.5 MCHC (33 - 37 g/dL) 30.8 L 31.5 L 32.7 L RDW (11.5 - 15.5 %) 16.3 H 16.0 H 15.9 H Plt Count (130 - 400 x10 3/uL) 389 352 339 MPV (9.4 - 16.4 fL) 10.0 10.6 10.4 Neut % (Auto) (43 - 65 %) 83.4 H 83.6 H 87.6 H Lymph % (Auto) (20.5 - 45.5 %) 7.6 L 11.2 L 7.0 L Citrus % (Auto) (5.5 - 11.7 %) 8.2 3.4 L 4.5 L Eos % (Auto) (0.9 - 2.9 %) 0.0 L 0.0 L 0.0 L Baso % (Auto) (0.2 - 1.0 %) 0.1 L 0.2 0.1 L Neut # (Auto) (2.2 - 4.8 x10 3/uL) 14.22 H 15.9 1 H 14.83 H Lymph # (Auto) (1.3 - 2.9 x10 3/uL) 1.30 2.12 1 .19 L Citrus # (Auto) (0.3 - 0.8 x10 3/uL) 1.39 H 0.64 0.77 Eos # (Auto) (0.0 - 0.2 x10 3/uL) 0.00 0.00 0.0 0 Baso # (Auto) (0.0 - 0.1 x10 3/uL) 0.02 0.03 0 .02 Immature Gran % (0.0 - 2.0 %) 0.7 1.6 0.8 Nucleated RBC % (0 - 1.0 %) 0.6 0.5 0.2 Laboratory Tests 06/21 2035 Toxicology Urine Opiates Screen (NEGATIVE) POSITIVE H Ur Barbiturates, Qual (NEGATIVE) POSITIVE H Ur Phencyclidine Scrn (NEGATIVE) NEGATIVE Ur Amphetamines Screen (NEGATIVE) NEGATIVE U Benzodiazepines Scrn (NEGATIVE) NEGATIVE Urine Cocaine Screen (NEGATIVE) NEGATIVE Urine Cannabinoids (NEGATIVE) NEGATIVE Microbiology: 06/21 1006 BLOOD: Blood Culture - RES 06/21 1006 BLOOD: Blood Culture - RES 06/19 1534 NASAL: MRSA Screen - COMP Radiology data Recent Impressions: RADIOLOGY - XR CHEST 1 V 06/21 1140 Report Impression - Status: SIGNED Entered: 06/21/2020 1203 IMPRESSION: 1. Endotracheal tube in satisfactory position. 2. Slight increase bilateral infiltrates. Impression By: Leyda Llamas DO CAT SCAN - CT ANGIO CHEST 06/21 9334 Report Impression - Status: SIGNED Entered: 06/21/2020 3139 IMPRESSION: 1. 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 There is no active extravasation of contrast or periaortic hematoma . There continues to be contrast enhancement posterior to the stent b ut within the original lumen of the abdominal aorta in the excluded por tion of the abdominal aorta. 2. Development of distended fluid-filled loops o f small bowel concerning for obstruction measuring up to 4.3 c m in size with questionable area of increased density in a prox imal loop of small bowel just the left of midline which could relat e to ingested material. If there is decreasing hemoglobin or h ematocrit, small bowel intestinal bleed is not excluded. 3. Right basilar pulmonary opacities with patchy bilateral pulmonary opacities is similar to prior exam concerning fo r bilateral pneumonia. Edema is not excluded given the cardiomegaly an d reflux of contrast into the inferior vena cava. 4. Inflammatory change surrounding the kidneys i s now present. Please correlate for acute renal insufficiency. 5. Other findings as above. Dr. Vargas called these findings to Dr. Kleber Newby on 06/21/2020 3:12 PM Impression By: Carmen Vargas MD CAT SCAN - CTA ABD PEL W CONT 06/21 1454 Report Impression - Status: SIGNED Entered: 06/21/2020 1519 IMPRESSION: 1. 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 There is no active extravasation of contrast or periaortic hematoma . There continues to be contrast enhancement posterior to the stent b ut within the original lumen of the abdominal aorta in the excluded por tion of the abdominal aorta. 2. Development of distended fluid-filled loops o f small bowel concerning for obstruction measuring up to 4.3 c m in size with questionable area of increased density in a prox imal loop of small bowel just the left of midline which could relat e to ingested material. If there is decreasing hemoglobin or h ematocrit, small bowel intestinal bleed is not excluded. 3. Right basilar pulmonary opacities with patchy bilateral pulmonary opacities is similar to prior exam concerning fo r bilateral pneumonia. Edema is not excluded given the cardiomegaly an d reflux of contrast into the inferior vena cava. 4. Inflammatory change surrounding the kidneys i s now present. Please correlate for acute renal insufficiency. 5. Other findings as above. Dr. Vargas called these findings to Dr. Kleber Newby on 06/21/2020 3:12 PM Impression By: Carmen Vargas MD RADIOLOGY - XR CHEST 1 V 06/21 1545 Report Impression - Status: SIGNED Entered: 06/21/2020 1601 IMPRESSION: As above. Impression By: Carmen Mackeyurst MD RADIOLOGY - XR CHEST 1 V 06/21 1725 Report Impression - Status: SIGNED Entered: 06/21/2020 1745 IMPRESSION: Interval placement of right-sided central venous catheters, with the tips projecting over the superior vena cava. Interval placement of NG tube, with the distal p ortion coursing to the left abdomen. Unchanged ET tube. Impression By: CjL - Fátima Fanmartine Spears RADIOLOGY - XR CHEST 1 V 06/22 0425 Report Impression - Status: SIGNED Entered: 06/22/2020 0504 IMPRESSION: Support tubes and line are unchanged. Cardiomegaly. Impression By: [email or web address] - Carloz Hayden MD Diagnosis, Assessment Plan Free text A P: 34 year old male with history of aortic dissecti on s/p EVAR came in for hypertensive urgency A/P: Neuro -lethargic, weaning from sedation #AMS likely 2/2 metabolic -CT brain showed no acute abnormalities -EEG pending -neuro following Pulm -s/p intubation following cardiac arrest -on FiO2 30% -ABG 7.39/36/107.3/21.7 -monitor CV #Cardiac Arrest - PEA hypotensive. ROSC achieved after 9 minutes - likely from cardiogenic shock EF 30-34% - off all pressors - Aortic dissection ruled out from CTA chest , a bdomen and pelvis #hx of EVAR for aortic dissection and h/o endole ak in the past - seen by Dr. Ramires's group last admission. Dr. Wallace larsen consulted -Cardio consulted -CTA chest #hypotension - HTN meds on hold -off pressors -cortisol AM ordered -monitor GI -dilated fluid filled loops of small bowel seen on CT -surgery consulted - no surgical intervention -lactic downtrending -monitor Renal #JENNIFER -Cr 3.3 -s/p cardiac arrest -CTA showed inflammation changes surrounding kid neys -monitor gi ppx: pepcid dvt ppx: heparin Diet: tube feeds at 1516 RPT #:[id number] END OF REPORT 2020-06-22 08:37:00-00:[address] [facility] ([facility]) Critical Care Progress Note REPORT#:[id number] REPORT STATUS: Signed DATE:06/22/20 TIME: 08 PATIENT: JORGE GOINS UNIT #: [id number] ROOM[address]BED: [address] : [birth year] AGE: 34 SEX: M ATTEND: Luis M Olmedo MD ADM AUTHOR: Esdras Shoemaker MD R1 * ALL edits or amendments must be made on the [employer]/computer document * Evelina Shoemaker 06/22/20 0837: Subjective Comments: Pt this AM is off pressors a nd sedation, but still intubated. He is opening eyes to painful stimuli. Review of Systems ROS Unable to obtain due to: intubated Objective General VS/I O Last Documented: Result Date Time FiO2 40 06/22 0724 O2 Delivery Ventilator 06/22 07 O2 Flow Rate 15 06/22 07 Pulse Ox 100 06/22 06 B/P 103/60 06/22 06 Pulse 85 06/22 0607 Resp 16 06/22 0607 B/P Mean 71 06/22 0600 Temp 37.1 06/22 0600 24 hour I O ending at 0700: 06/22 0700 06/21 1900 Intake Total 1978. 3000.00 Output Total 225 500 Balance 1753.00 2500.00 Intake, IV 1977. 3000.00 Output, Urine 225 500 Patient 98.3 kg Weight Weight Bed scale Measurement Method PATIENT WEIGHT: Weight (lb): 216 Weight (oz): 11.43 Weight (kg): 98.300 Medications: Active Meds + DC'd Last 24 Hrs Sodium Chloride 1,000 ML BOLUS ONCE ONE IV (DC) Dextrose/Water 25 ML ASDIR PRN IV Glucagon 1 MG ASDIR PRN IM Insulin Human Lispro LOW DOSE SCALE ASDIR SUBQ Sterile Water 1 ML ASDIR PRN IM Propofol 100 ML TITRATE IV (CKD) Midazolam HCl 100 ML TITRATE IV (CKD) Propofol 100 MG ONCE ONE IV (CAN) Epinephrine 8 MG TITRATE IV (CKD) Sodium Chloride 242 ML Norepinephrine Bitartrate 16 MG TITRATE IV Sodium Chloride 234 ML Perflutren Lipid Microsphere DIRECTED ONCE PRN IV Sodium Chloride DIRECTED ONCE PRN IV Sodium Chloride 5 ML ONCE PRN IV Diphenhydramine HCl 50 MG ONCE@1400 IV (DC) Sodium Chloride 1,000 ML BOLUS ONCE ONE IV (DC) Fentanyl Citrate 0 .STK-MED ONE .ROUTE (DC) Epinephrine HCl 254 ML TITRATE IV (DC) Epinephrine HCl 254 ML TITRATE IV (DC) Dextrose/Water 0 .STK-MED ONE .ROUTE (DC) Fentanyl Citrate 50 ML TITRATE IV (CKD) Propofol 100 ML .Q24H ONE IV (CKD) Azithromycin 500 MG DAILY IV Sodium Chloride 250 ML Losartan Potassium 50 MG Q12H PO (DC) Norepinephrine Bitartrate 254 ML TITRATE IV (DC) Cefepime HCl 1 GM Q12HR IV Sterile Water 10 ML Famotidine 20 MG DAILY PO Hydrochlorothiazide 25 MG DAILY PO (DC) Losartan Potassium 100 MG DAILY PO (DC) Morphine Sulfate 2 MG Q4H PRN PRN IV Heparin Sodium (Porcine) 5,000 UNIT Q12HR SUBQ Mupirocin 1 APPLIC BID NASAL Nifedipine 90 MG Q12HR PO (DC) Hydrocodone Bitart/Acetaminophen 1 TAB Q6H PRN P RN PO Carvedilol 25 MG BID MEALS PO (DA) Esmolol HCl 250 ML TITRATE IV (CKD) Nicardipine HCl 250 ML TITRATE IV Physical Exam General appearance: lethargic, respiratory suppo rt Head/Eyes: atraumatic, normocephalic, EOMI Cardiovascular: normal heart sounds, normal S1 S 2, normal rate and rhythm Respiratory/Chest: aerating well, clear to auscu ltation Abdomen: soft, non-tender Extremities: no edema Results Findings/Data: Laboratory Tests 06/22/20 0232: [Embedded Image Not Available] 06/21/20 1440: [Embedded Image Not Available] 06/21/20 0841: [Embedded Image Not Available] 06/21/20 0841: [Embedded Image Not Available] Laboratory Tests 06/22 06/21 0441 1348 Blood Gas Puncture Site Art Line Art Line ABG pH (7.35 - 7.45 pH units) 7.39 7.28 *L ABG pCO2 (35 - 48 mmHg) 36.0 42.7 ABG pO2 (83 - 108 mmHg) 107.3 516.7 H ABG PO2/FiO2 Ratio (mm/Hg) 268.25 516.70 ABG HCO3 (21 - 28 mmol/L) 21.7 19.9 L ABG Total CO2 (22 - 29 mmol/L) 21.7 L 20.3 L ABG O2 Sat Calc/Denise (94 - 98 %) 98.1 H 100.0 H ABG Base Excess (-2 - 3 mmol/L) -2.9 L -6.6 L Emmanuel Test N/A N/A Sodium (138 - 146 mmol/L) 141 134 L Potassium (3.5 - 4.5 mmol/L) 3.7 5.7 H Ionized Calcium (1.15 - 1.33 MMOL/L) 0.97 L 0.9 3 L Respiration Rate (12 - 20 /MIN) 16 20 O2 Delivery Device Adult Vent Adult Vent Vent Mode VC ASSIST CONTROL Vent Rate (/MIN) 16 FiO2 (%) 40 100 Instrument (Specimen Descript) Arterial Arteria l Laboratory Tests 06/22 06/22 06/22 06/22 06/22 0650 0639 0448 0441 0234 Chemistry POC Glucose (74 - 106 MG/DL) 99 55 L 55 L 44 *L 86 06/22 06/22 06/22 06/21 06/21 0232 0232 0022 2034 2034 Chemistry Sodium (137 - 145 mmol/L) 138 Potassium (3.4 - 5.0 mmol/L) 4.3 Chloride (98 - 107 mmol/L) 102 Carbon Dioxide (22 - 30 mmol/L) 23 BUN (9 - 20 mg/dL) 76 H Creatinine (0.7 - 1.3 mg/dL) 3.3 H Glomerular Filtr Rate (>60) 28 L Glucose (74 - 106 mg/dL) 83 POC Glucose (74 - 106 MG/DL) 169 H Lactic Acid (0.7 - 2.0 mmol/L) 2.6 *H 6.2 *H Calcium (8.4 - 10.2 mg/dL) 7.6 L Troponin I (0.012 - 0.033 ng/mL) 0.333 *H 06/21 1440 1440 1148 0913 Chemistry Sodium (137 - 145 mmol/L) 137 Potassium (3.4 - 5.0 mmol/L) 4.8 Chloride (98 - 107 mmol/L) 101 Carbon Dioxide (22 - 30 mmol/L) 12 L BUN (9 - 20 mg/dL) 62 H Creatinine (0.7 - 1.3 mg/dL) 2.9 H Glomerular Filtr Rate (>60) 32 L Glucose (74 - 106 mg/dL) 296 H POC Glucose (74 - 106 MG/DL) 258 H Lactic Acid (0.7 - 2.0 mmol/L) 11.2 *H 9.6 *H Calcium (8.4 - 10.2 mg/dL) 7.5 L CK-MB (CK-2) (0.5 - 5.0 ng/mL) 2.71 Troponin I (0.012 - 0.033 ng/mL) 0.206 *H 06/21 06/21 06/21 06/21 06/21 0841 0841 0841 0841 0839 Chemistry Sodium (137 - 145 mmol/L) 135 L Potassium (3.4 - 5.0 mmol/L) 4.4 Chloride (98 - 107 mmol/L) 104 Carbon Dioxide (22 - 30 mmol/L) 14 L BUN (9 - 20 mg/dL) 64 H Creatinine (0.7 - 1.3 mg/dL) 2.7 H Glomerular Filtr Rate (>60) 35 L Glucose (74 - 106 mg/dL) 125 H POC Glucose (74 - 106 MG/DL) 134 H Lactic Acid (0.7 - 2.0 mmol/L) 4.9 *H Calcium (8.4 - 10.2 mg/dL) 8.4 Magnesium (1.6 - 2.3 mg/dL) 2.4 H Total Bilirubin (0.2 - 1.3 mg/dL) 1.3 Conjugated Bilirubin (0 - 0.3 mg/dL) 0 Unconjugated Bilirubin (0 - 1.1 0.4 mg/dL) AST (15 - 46 U/L) 332 H ALT (0 - 34 U/L) 198 H Total Alk Phosphatase (38 - 126 U/L) 89 Ammonia (9 - 30 umol/L) 15 Troponin I (0.012 - 0.033 ng/mL) 0.118 H Total Protein (6.3 - 8.2 g/dL) 6.1 L Albumin (3.5 - 5.0 g/dL) 2.9 L Laboratory Tests 06/22 06/21 06/21 0232 1440 0841 Hematology WBC (5.0 - 12.0 x10 3/uL) 17.1 H 19.0 H 17.0 H RBC (4.70 - 6.10 x10 6/uL) 4.18 L 3.78 L 3.86 L Hgb (14.0 - 18.0 g/dL) 12.0 L 11.2 L 11.4 L Hct (37.0 - 49.0 %) 38.9 35.6 L 34.9 L MCV (80 - 94 fL) 93 94 90 MCH (27 - 31 pg) 28.7 29.6 29.5 MCHC (33 - 37 g/dL) 30.8 L 31.5 L 32.7 L RDW (11.5 - 15.5 %) 16.3 H 16.0 H 15.9 H Plt Count (130 - 400 x10 3/uL) 389 352 339 MPV (9.4 - 16.4 fL) 10.0 10.6 10.4 Neut % (Auto) (43 - 65 %) 83.4 H 83.6 H 87.6 H Lymph % (Auto) (20.5 - 45.5 %) 7.6 L 11.2 L 7.0 L Citrus % (Auto) (5.5 - 11.7 %) 8.2 3.4 L 4.5 L Eos % (Auto) (0.9 - 2.9 %) 0.0 L 0.0 L 0.0 L Baso % (Auto) (0.2 - 1.0 %) 0.1 L 0.2 0.1 L Neut # (Auto) (2.2 - 4.8 x10 3/uL) 14.22 H 15.9 1 H 14.83 H Lymph # (Auto) (1.3 - 2.9 x10 3/uL) 1.30 2.12 1 .19 L Citrus # (Auto) (0.3 - 0.8 x10 3/uL) 1.39 H 0.64 0.77 Eos # (Auto) (0.0 - 0.2 x10 3/uL) 0.00 0.00 0.0 0 Baso # (Auto) (0.0 - 0.1 x10 3/uL) 0.02 0.03 0. 02 Immature Gran % (0.0 - 2.0 %) 0.7 1.6 0.8 Nucleated RBC % (0 - 1.0 %) 0.6 0.5 0.2 Laboratory Tests 06/21 2035 Toxicology Urine Opiates Screen (NEGATIVE) POSITIVE H Ur Barbiturates, Qual (NEGATIVE) POSITIVE H Ur Phencyclidine Scrn (NEGATIVE) NEGATIVE Ur Amphetamines Screen (NEGATIVE) NEGATIVE U Benzodiazepines Scrn (NEGATIVE) NEGATIVE Urine Cocaine Screen (NEGATIVE) NEGATIVE Urine Cannabinoids (NEGATIVE) NEGATIVE Microbiology: 06/21 1006 BLOOD: Blood Culture - RES 06/21 1006 BLOOD: Blood Culture - RES 06/19 1534 NASAL: MRSA Screen - COMP Radiology data Recent Impressions: RADIOLOGY - XR CHEST 1 V 06/21 1140 Report Impression - Status: SIGNED Entered: 06/21/2020 1203 IMPRESSION: 1. Endotracheal tube in satisfactory position. 2. Slight increase bilateral infiltrates. Impression By: Leyda - Nish Llamas DO CAT SCAN - CT ANGIO CHEST 06/21 6223 Report Impression - Status: SIGNED Entered: 06/21/2020 1519 IMPRESSION: 1. 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 There is no active extravasation of contrast or periaortic hematoma . There continues to be contrast enhancement posterior to the stent b ut within the original lumen of the abdominal aorta in the excluded por tion of the abdominal aorta. 2. Development of distended fluid-filled loops o f small bowel concerning for obstruction measuring up to 4.3 c m in size with questionable area of increased density in a prox imal loop of small bowel just the left of midline which could relat e to ingested material. If there is decreasing hemoglobin or h ematocrit, small bowel intestinal bleed is not excluded. 3. Right basilar pulmonary opacities with patchy bilateral pulmonary opacities is similar to prior exam concerning fo r bilateral pneumonia. Edema is not excluded given the cardiomegaly an d reflux of contrast into the inferior vena cava. 4. Inflammatory change surrounding the kidneys i s now present. Please correlate for acute renal insufficiency. 5. Other findings as above. Dr. Vargas called these findings to Dr. Kleber Newby on 06/21/2020 3:12 PM Impression By: [email or web address] - Erick Vargas MD CAT SCAN - CTA ABD PEL W CONT 06/21 5326 Report Impression - Status: SIGNED Entered: 06/21/2020 1519 IMPRESSION: 1. 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 There is no active extravasation of contrast or periaortic hematoma . There continues to be contrast enhancement posterior to the stent b ut within the original lumen of the abdominal aorta in the excluded por tion of the abdominal aorta. 2. Development of distended fluid-filled loops o f small bowel concerning for obstruction measuring up to 4.3 c m in size with questionable area of increased density in a prox imal loop of small bowel just the left of midline which could relat e to ingested material. If there is decreasing hemoglobin or h ematocrit, small bowel intestinal bleed is not excluded. 3. Right basilar pulmonary opacities with patchy bilateral pulmonary opacities is similar to prior exam concerning fo r bilateral pneumonia. Edema is not excluded given the cardiomegaly an d reflux of contrast into the inferior vena cava. 4. Inflammatory change surrounding the kidneys i s now present. Please correlate for acute renal insufficiency. 5. Other findings as above. Dr. Vargas called these findings to Dr. Kleber Newby on 06/21/2020 3:12 PM Impression By: Carmen Vargas MD RADIOLOGY - XR CHEST 1 V 06/21 1545 Report Impression - Status: SIGNED Entered: 06/21/2020 1601 IMPRESSION: As above. Impression By: Carmen Vargas MD RADIOLOGY - XR CHEST 1 V 06/21 1725 Report Impression - Status: SIGNED Entered: 06/21/2020 1745 IMPRESSION: Interval placement of right-sided central venous catheters, with the tips projecting over the superior vena cava. Interval placement of NG tube, with the distal p ortion coursing to the left abdomen. Unchanged ET tube. Impression By: Ramesh Spears RADIOLOGY - XR CHEST 1 V 06/22 0425 Report Impression - Status: SIGNED Entered: 06/22/2020 0504 IMPRESSION: Support tubes and line are unchanged. Cardiomegaly. Impression By: [email or web address] - Carloz Hayden MD Diagnosis, Assessment Plan Free text A P: 34 year old male with history of aortic dissecti on s/p EVAR came in for hypertensive urgency A/P: Neuro -lethargic, weaning from sedation #AMS likely 2/2 metabolic -CT brain showed no acute abnormalities -EEG pending -neuro following Pulm -s/p intubation following cardiac arrest -on FiO2 30% -ABG 7.39/36/107.3/21.7 -monitor CV #Cardiac Arrest - PEA hypotensive. ROSC achieved after 9 minutes - likely from cardiogenic shock EF 30-34% - off all pressors - Aortic dissection ruled out from CTA chest , a bdomen and pelvis #hx of EVAR for aortic dissection and h/o endole ak in the past - seen by Dr. Ramires's group last admission. Dr. Wallace larsen consulted -Cardio consulted -CTA chest #hypotension - HTN meds on hold -off pressors -cortisol AM ordered -monitor GI -dilated fluid filled loops of small bowel seen on CT -surgery consulted - no surgical intervention -lactic downtrending -monitor Renal #JENNIFER -Cr 3.3 -s/p cardiac arrest -CTA showed inflammation changes surrounding kid neys -monitor gi ppx: pepcid dvt ppx: heparin Diet: tube feeds Edy Olmedo 06/23/20 1743: Attestations Physician Attestation Agree w/findings plan: I have personally interviewed and examin ed the patient 06/22/2020. All charts, labs, and imaging studies were reviewed. I agree with the resident's findings, exam, and plan. Lungs with rales Start weaning trials. CC time >40min. No procedure time included in th is time. at 1516 Electronically Signed by Edy Olmedo MD on at 6118 RPT #:[id number] END OF REPORT 2020-06-21 23:23:00-00:[address] [facility] ([facility]) Consultation Note - Brief REPORT#:[id number] REPORT STATUS: Signed DATE:06/21/20 TIME: 2322 PATIENT: JORGE GOINS UNIT #: [id number] ROOM/BED: [address] : [birth year] AGE: 34 SEX: M ATTEND: Luis M Olmedo MD ADM AUTHOR: Vic Amaya MD * ALL edits or amendments must be made on the el [employer]/computer document * History of Present Illness HPI History of present illness: 34 year old male with history of aortic dissecti on s/p EVAR, HTN, CHF and medication non-compliance presented to the ER fo r evaluation of hypertensive urgency with SBP of 220s and HR in 80-90s. CT ch est showed stable aortic dissection with no mention o f endoleak. CTA of chest however was concerning for multiple focal PNA. Rapid Covid and PCR were neg ative. Surgery were consulted for evaluation of abdominal pain. History - Adult longitudinal Past medical history: Reports: Congestive heart failure, Hypertension. Additional medical history: type B dissection s/p TEVAR Past surgical history: Reports: Cholecystectomy. Additional surgical history: TEVAR Family history: Reports: Diabetes, Hypertension. 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 Allergies: Coded Allergies: Iodine and Iodide Containing Produc (Severe, HIV ES 11/19/19) shellfish derived (Intermediate, RASH 11/19/19) Brief Consult Note Physical Exam Vitals: Last Documented: Result Date Time Pulse Ox 100 07/08 1914 B/P 90/55 07/08 1914 B/P Mean 71 07/08 1914 Pulse 77 07/08 1914 Resp 22 07/08 1914 FiO2 50 07/08 1630 O2 Delivery Ventilator 07/08 1630 Temp 99.1 07/08 1630 O2 Flow Rate 0 07/05 0932 Free Text A P: 34 yo male with hypotension: abdominal aortic an eurysm No acute surgical abdomen Plan: Will monitor for clinical changes Electronically Signed by Vic Amaya MD on 07/08 at 2017 RPT #:[id number] END OF REPORT 2020-06-21 22:49:00-00:[address] [facility] ([facility]) Critical Care Progress Note REPORT#:[id number] REPORT STATUS: Signed DATE:06/21/20 TIME: 2248 PATIENT: JORGE GOINS UNIT #: [id number] [address] : [birth year] AGE: 34 SEX: M ATTEND: Luis M Olmedo MD ADM AUTHOR: Wilfred Pereira MD R2 * ALL edits or amendments must be made on the el [employer]/computer document * Subjective HPI: worsened overnight. coded for 9 minutes. PEA, hypotension. Take to stat CTA of chest. Objective General VS/I O Last Documented: Result Date Time Temp 36.4 06/21 2000 Pulse Ox 98 06/21 184 Pulse 85 06/21 1843 Resp 4 06/21 1843 B/P 109/79 06/21 1830 B/P Mean 90 06/21 1830 FiO2 100 06/21 0523 O2 Delivery BiPAP 06/21 0400 O2 Flow Rate 3 06/20 0926 24 hour I O ending at 0700: 06/21 0700 06/20 1900 Intake Total 3046.00 Output Total Balance 3046.00 Intake, IV 3046.00 Number 0 Bowel Movements Number 1 Incontinent Voids PATIENT WEIGHT: Weight (lb): 198 Weight (oz): 3.13 Weight (kg): 89.900 Medications: Active Meds + DC'd Last 24 Hrs Dextrose/Water 25 ML ASDIR PRN IV Glucagon 1 MG ASDIR PRN IM Insulin Human Lispro LOW DOSE SCALE ASDIR SUBQ Sterile Water 1 ML ASDIR PRN IM Propofol 100 ML TITRATE IV (CKD) Midazolam HCl 100 ML TITRATE IV (CKD) Propofol 100 MG ONCE ONE IV (CAN) Epinephrine 8 MG TITRATE IV (CKD) Sodium Chloride 242 ML Norepinephrine Bitartrate 16 MG TITRATE IV Sodium Chloride 234 ML Perflutren Lipid Microsphere DIRECTED ONCE PRN IV Sodium Chloride DIRECTED ONCE PRN IV Sodium Chloride 5 ML ONCE PRN IV Diphenhydramine HCl 50 MG ONCE@1400 IV (DC) Sodium Chloride 1,000 ML BOLUS ONCE ONE IV (DC) Fentanyl Citrate 0 .STK-MED ONE .ROUTE (DC) Epinephrine HCl 254 ML TITRATE IV (DC) Epinephrine HCl 254 ML TITRATE IV (DC) Dextrose/Water 0 .STK-MED ONE .ROUTE (DC) Fentanyl Citrate 50 ML TITRATE IV (CKD) Propofol 100 ML .Q24H ONE IV (CKD) Azithromycin 500 MG DAILY IV Sodium Chloride 250 ML Losartan Potassium 50 MG Q12H PO (DC) Calcium Gluconate/Sodium Chloride 50 ML ONCE ONE IV (DC) Dextrose/Water 50 ML ONCE ONE IV (DC) Insulin Human Regular 10 UNIT ONCE ONE IV (DC) Sodium Bicarbonate 50 MEQ ONCE ONE IV (DC) Sodium Bicarbonate 100 MEQ ONCE ONE IV (DC) Norepinephrine Bitartrate 254 ML .STK-MED ONE IV (DC) Norepinephrine Bitartrate 254 ML TITRATE IV (DC) Norepinephrine Bitartrate 254 ML .STK-MED ONE IV (DC) Cefepime HCl 1 GM Q12HR IV Sterile Water 10 ML Sodium Chloride 2,697 ML ONCE ONE IV (DC) Lorazepam 1 MG Q8H PRN PRN IM (DC) Famotidine 20 MG DAILY PO Hydrochlorothiazide 25 MG DAILY PO (DC) Losartan Potassium 100 MG DAILY PO (DC) Morphine Sulfate 2 MG Q4H PRN PRN IV Sodium Chloride 1,000 ML .Q10H IV (DC) Heparin Sodium (Porcine) 5,000 UNIT Q12HR SUBQ Mupirocin 1 APPLIC BID NASAL Nifedipine 90 MG Q12HR PO (DC) Hydrocodone Bitart/Acetaminophen 1 TAB Q6H PRN P RN PO Carvedilol 25 MG BID MEALS PO (DA) Esmolol HCl 250 ML TITRATE IV (CKD) Nicardipine HCl 250 ML TITRATE IV Physical Exam General appearance: confused, obese Cardiovascular: normal heart sounds, normal S1 S 2 Respiratory/Chest: decreased breath sounds, dull ness to percussion, on oxygen Abdomen: soft, non-tender Extremities: no clubbing, no cyanosis, no edema Musculoskeletal: full range of motion, no muscle spasm Neuro/RADIOTELEGRAPHIST: disoriented Lymphatics: neck normal, no lymphadenopathy Results Findings/Data: Laboratory Tests 06/21/20 1440: [Embedded Image Not Available] 06/21/20 0841: [Embedded Image Not Available] 06/21/20 0841: [Embedded Image Not Available] 06/21/20 0244: [Embedded Image Not Available] 06/21/20 0244: [Embedded Image Not Available] Laboratory Tests 06/21 06/21 1348 0215 Blood Gas Puncture Site Art Line R Radial ABG pH (7.35 - 7.45 pH units) 7.28 *L 7.36 ABG pCO2 (35 - 48 mmHg) 42.7 18.7 *L ABG pO2 (83 - 108 mmHg) 516.7 H 258.6 H ABG PO2/FiO2 Ratio (mm/Hg) 516.70 258.60 ABG HCO3 (21 - 28 mmol/L) 19.9 L 10.7 L ABG Total CO2 (22 - 29 mmol/L) 20.3 L 11.2 L ABG O2 Sat Calc/Denise (94 - 98 %) 100.0 H 99.9 H ABG Base Excess (-2 - 3 mmol/L) -6.6 L -12.6 L Emmanuel Test N/A Positive Sodium (138 - 146 mmol/L) 134 L 131 L Potassium (3.5 - 4.5 mmol/L) 5.7 H 5.7 H Ionized Calcium (1.15 - 1.33 MMOL/L) 0.93 L 1.0 3 L Respiration Rate (12 - 20 /MIN) 20 O2 Delivery Device Adult Vent Bagging Vent Mode ASSIST CONTROL FiO2 (%) 100 100 Instrument (Specimen Descript) Arterial Arteria l Laboratory Tests 06/21 1440 1440 1148 Chemistry Sodium (137 - 145 mmol/L) 137 Potassium (3.4 - 5.0 mmol/L) 4.8 Chloride (98 - 107 mmol/L) 101 Carbon Dioxide (22 - 30 mmol/L) 12 L BUN (9 - 20 mg/dL) 62 H Creatinine (0.7 - 1.3 mg/dL) 2.9 H Glomerular Filtr Rate (>60) 32 L Glucose (74 - 106 mg/dL) 296 H Lactic Acid (0.7 - 2.0 mmol/L) 6.2 *H 11.2 *H 9 .6 *H Calcium (8.4 - 10.2 mg/dL) 7.5 L Troponin I (0.012 - 0.033 ng/mL) 0.333 *H 0.206 *H 06/21 06/21 06/21 06/21 06/21 0913 0841 0841 0841 0841 Chemistry Sodium (137 - 145 mmol/L) 135 L Potassium (3.4 - 5.0 mmol/L) 4.4 Chloride (98 - 107 mmol/L) 104 Carbon Dioxide (22 - 30 mmol/L) 14 L BUN (9 - 20 mg/dL) 64 H Creatinine (0.7 - 1.3 mg/dL) 2.7 H Glomerular Filtr Rate (>60) 35 L Glucose (74 - 106 mg/dL) 125 H Lactic Acid (0.7 - 2.0 mmol/L) 4.9 *H Calcium (8.4 - 10.2 mg/dL) 8.4 Magnesium (1.6 - 2.3 mg/dL) 2.4 H Total Bilirubin (0.2 - 1.3 mg/dL) 1.3 Conjugated Bilirubin (0 - 0.3 mg/dL) 0 Unconjugated Bilirubin (0 - 1.1 mg/dL) 0.4 AST (15 - 46 U/L) 332 H ALT (0 - 34 U/L) 198 H Total Alk Phosphatase (38 - 126 U/L) 89 Ammonia (9 - 30 umol/L) 15 CK-MB (CK-2) (0.5 - 5.0 ng/mL) 2.71 Troponin I (0.012 - 0.033 ng/mL) 0.118 H Total Protein (6.3 - 8.2 g/dL) 6.1 L Albumin (3.5 - 5.0 g/dL) 2.9 L 06/21 06/21 06/21 06/21 06/21 0839 0401 0342 0244 0244 Chemistry Sodium (137 - 145 mmol/L) 132 L Potassium (3.4 - 5.0 mmol/L) 5.8 H Chloride (98 - 107 mmol/L) 102 Carbon Dioxide (22 - 30 mmol/L) 8 *L BUN (9 - 20 mg/dL) 57 H Creatinine (0.7 - 1.3 mg/dL) 2.8 H Glomerular Filtr Rate (>60) 34 L Glucose (74 - 106 mg/dL) 89 POC Glucose (74 - 106 MG/DL) 134 H Lactic Acid (0.7 - 2.0 mmol/L) 8.5 *H Calcium (8.4 - 10.2 mg/dL) 8.0 L Magnesium (1.6 - 2.3 mg/dL) 2.5 H CK-MB (CK-2) (0.5 - 5.0 ng/mL) 2.01 Troponin I (0.012 - 0.033 ng/mL) 0.115 H Vitamin B12 (239 - 931 pg/mL) 732 TSH (0.465 - 4.68 MIU/L) 7.590 H Free T4 (0.78 - 2.19 ng/dL) 1.70 06/21 06/21 06/21 0244 0215 0113 Chemistry POC Glucose (74 - 100 mg/dL) 89 113 H Ammonia (9 - 30 umol/L) 45 *H Laboratory Tests 06/21 0244 Coagulation INR 2.0 PT Patient/Control Mix (9.2 - 12.1 SECONDS) 22. 8 H Laboratory Tests 06/21 06/21 06/21 1440 0841 0244 Hematology WBC (5.0 - 12.0 x10 3/uL) 19.0 H 17.0 H 16.5 H RBC (4.70 - 6.10 x10 6/uL) 3.78 L 3.86 L 3.68 L Hgb (14.0 - 18.0 g/dL) 11.2 L 11.4 L 10.7 L Hct (37.0 - 49.0 %) 35.6 L 34.9 L 34.7 L MCV (80 - 94 fL) 94 90 94 MCH (27 - 31 pg) 29.6 29.5 29.1 MCHC (33 - 37 g/dL) 31.5 L 32.7 L 30.8 L RDW (11.5 - 15.5 %) 16.0 H 15.9 H 15.9 H Plt Count (130 - 400 x10 3/uL) 352 339 347 MPV (9.4 - 16.4 fL) 10.6 10.4 10.6 Neut % (Auto) (43 - 65 %) 83.6 H 87.6 H 88.4 H Lymph % (Auto) (20.5 - 45.5 %) 11.2 L 7.0 L 6.9 L Citrus % (Auto) (5.5 - 11.7 %) 3.4 L 4.5 L 3.8 L Eos % (Auto) (0.9 - 2.9 %) 0.0 L 0.0 L 0.0 L Baso % (Auto) (0.2 - 1.0 %) 0.2 0.1 L 0.1 L Neut # (Auto) (2.2 - 4.8 x10 3/uL) 15.91 H 14.8 3 H 14.54 H Lymph # (Auto) (1.3 - 2.9 x10 3/uL) 2.12 1.19 L 1.14 L Citrus # (Auto) (0.3 - 0.8 x10 3/uL) 0.64 0.77 0. 63 Eos # (Auto) (0.0 - 0.2 x10 3/uL) 0.00 0.00 0.0 0 Baso # (Auto) (0.0 - 0.1 x10 3/uL) 0.03 0.02 0. 02 Immature Gran % (0.0 - 2.0 %) 1.6 0.8 0.8 Nucleated RBC % (0 - 1.0 %) 0.5 0.2 0.3 Laboratory Tests 06/21 2035 Toxicology Urine Opiates Screen (NEGATIVE) POSITIVE H Ur Barbiturates, Qual (NEGATIVE) POSITIVE H Ur Phencyclidine Scrn (NEGATIVE) NEGATIVE Ur Amphetamines Screen (NEGATIVE) NEGATIVE U Benzodiazepines Scrn (NEGATIVE) NEGATIVE Urine Cocaine Screen (NEGATIVE) NEGATIVE Urine Cannabinoids (NEGATIVE) NEGATIVE Microbiology: 06/21 1006 BLOOD: Blood Culture - RES 06/21 1006 BLOOD: Blood Culture - RES 06/19 1534 NASAL: MRSA Screen - COMP 06/19 0425 BLOOD: Blood Culture - RES 06/19 0425 BLOOD: Blood Culture - RES Radiology data Recent Impressions: CAT SCAN - CT ABD PELVIS W/O CONT 06/21 0547 Report Impression - Status: SIGNED Entered: 06/21/2020 0704 IMPRESSION: No free fluid in the abdomen or pelvis to sugges t stent graft leakage or rupture. Unchanged appearance of the thoracoabdominal aor tic stent graft and the right external iliac stent graft. Impression By: Ramesh Spears CAT SCAN - CT HEAD/BRAIN W/O CONT 06/21 0547 Report Impression - Status: SIGNED Entered: 06/21/2020 0652 IMPRESSION: No acute intracranial hemorrhage. Mild chronic microvascular ischemic injuries. Faint calcifications in the bilateral basal gang brown, essentially unchanged since 05/16/2015. Impression By: Ramesh Spears RADIOLOGY - XR CHEST 1 V 06/21 1140 Report Impression - Status: SIGNED Entered: 06/21/2020 1203 IMPRESSION: 1. Endotracheal tube in satisfactory position. 2. Slight increase bilateral infiltrates. Impression By: Leyda - Nish Llamas DO CAT SCAN - CT ANGIO CHEST 06/21 1454 Report Impression - Status: SIGNED Entered: 06/21/2020 1516 IMPRESSION: 1. 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 There is no active extravasation of contrast or periaortic hematoma . There continues to be contrast enhancement posterior to the stent b ut within the original lumen of the abdominal aorta in the excluded por tion of the abdominal aorta. 2. Development of distended fluid-filled loops o f small bowel concerning for obstruction measuring up to 4.3 c m in size with questionable area of increased density in a prox imal loop of small bowel just the left of midline which could relat e to ingested material. If there is decreasing hemoglobin or h ematocrit, small bowel intestinal bleed is not excluded. 3. Right basilar pulmonary opacities with patchy bilateral pulmonary opacities is similar to prior exam concerning fo r bilateral pneumonia. Edema is not excluded given the cardiomegaly an d reflux of contrast into the inferior vena cava. 4. Inflammatory change surrounding the kidneys i s now present. Please correlate for acute renal insufficiency. 5. Other findings as above. Dr. Vargas called these findings to Dr. Kleber Newby on 06/21/2020 3:12 PM Impression By: [email or web address] - Erick Vargas MD CAT SCAN - CTA ABD PEL W CONT 06/21 5720 Report Impression - Status: SIGNED Entered: 06/21/2020 8363 IMPRESSION: 1. 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 There is no active extravasation of contrast or periaortic hematoma . There continues to be contrast enhancement posterior to the stent b ut within the original lumen of the abdominal aorta in the excluded por tion of the abdominal aorta. 2. Development of distended fluid-filled loops o f small bowel concerning for obstruction measuring up to 4.3 c m in size with questionable area of increased density in a prox imal loop of small bowel just the left of midline which could relat e to ingested material. If there is decreasing hemoglobin or h ematocrit, small bowel intestinal bleed is not excluded. 3. Right basilar pulmonary opacities with patchy bilateral pulmonary opacities is similar to prior exam concerning fo r bilateral pneumonia. Edema is not excluded given the cardiomegaly an d reflux of contrast into the inferior vena cava. 4. Inflammatory change surrounding the kidneys i s now present. Please correlate for acute renal insufficiency. 5. Other findings as above. Dr. Vargas called these findings to Dr. Kleber Newby on 06/21/2020 3:12 PM Impression By: Carmen Vargas MD RADIOLOGY - XR CHEST 1 V 06/21 1545 Report Impression - Status: SIGNED Entered: 06/21/2020 1601 IMPRESSION: As above. Impression By: Carmen Vargas MD RADIOLOGY - XR CHEST 1 V 06/21 1725 Report Impression - Status: SIGNED Entered: 06/21/2020 1745 IMPRESSION: Interval placement of right-sided central venous catheters, with the tips projecting over the superior vena cava. Interval placement of NG tube, with the distal p ortion coursing to the left abdomen. Unchanged ET tube. Impression By: Ramesh - Fátima Spears Diagnosis, Assessment Plan Free text A P: 34 year old male with history of aortic dissecti on s/p EVAR came in for hypertensive urgency #Cardiac Arrest - PEA hypotensive. COded for 9 minutes - likely from cardiogenic shock EF 30-34% - on levophed and epinephrine - Aortic dissection ruled out from CTA chest , a bdomen and pelvis - #AMS - 2/2 ativan vs hypertensive encephalopathy - cont to monitor. - improving complaining of headache #CVS - h/o EVAR for aortic dissection and h/o endolea k in the past - seen by Dr. Ramires's group last admission. Dr. Wallace larsen consulted - given picture of hypertensive urgency , will s tart Esmolol and Cardene drip with SBP goal < 120 - pending Cardio consult #HTN - on esomolol and cardene - patient is medication non-compliance - resume home med - headache => tylenol PRN #COVID - pending PCR - CT chest b/l infiltrates at the bases - not hypoxic . will watch for now gi ppx: pepcid dvt ppx: heparin PLAN: - cardiac arrest concerned f or cardiogenic shock. EF of 30-34%. Patient is not a candidate for Baloon pump or Impala due to EVAR and history of aortic graft recently. Dr. Olmedo d/w Dr. Mak for possible s ubclavian baloon pump but it remains high risk. Dr. Olmedo also d/w Dr. Ortiz about his cardiogenic shock etiology. Reduced EF is recent, possible for M.I , Drug use, uncontrolled hypertension. UDS is ordered - Gastric distention and bowel distention seen o n CT abdomen and pelvis , Dr. Amaya was consulted to rule out bowel ischemia g iven lactic acid elevation - Patient change in AMS and elevated lactic acid also raised concerned for sepsis. EEG ordered and neurology consulted. als o help to evaluate possible hypoxic brain injury - Patient Cr has been uptrending, contra st was used for CT today. D/w Dr. Albarado about possible HD if patient becomes more oligouric. Mena catheter was placed if HD is needed Electronically Signed by Wilfred Pereira MD R2 on 1 08/22/19 at 2259 RPT #:[id number] END OF REPORT 2020-06-21 22:49:00-00:00 [facility] Critical [facility] Progress Note REPORT#:[id number] REPORT STATUS: Signed DATE:06/21/20 TIME: 2248 PATIENT: JORGE GOINS UNIT #: [id number] ROOM/BED: [address] : 86 AGE: 34 SEX: M ATTEND: Luis M Olmedo MD ADM AUTHOR: Wilfred Pereira MD R2 * ALL edits or amendments must be made on the rimidi/computer document * Wilfred Pereira 06/21/202248: Subjective HPI: worsened overnight. coded for 9 minutes. PEA, hypotension. Take to stat CTA of chest. Objective General VS/I O Last Documented: Result Date Time Temp 36.4 06/21 2000 Pulse Ox 98 06/21 184 Pulse 85 06/21 1843 Resp 4 06/21 1843 B/P 109/79 06/21 1830 B/P Mean 90 06/21 183 FiO2 100 06/21 0523 O2 Delivery BiPAP 06/21 0400 O2 Flow Rate 3 06/20 0926 24 hour I O ending at 0700: 06/21 0700 06/20 1900 Intake Total 3046.00 Output Total Balance 3046.00 Intake, IV 3046.00 Number 0 Bowel Movements Number 1 Incontinent Voids PATIENT WEIGHT: Weight (lb): 198 Weight (oz): 3.13 Weight (kg): 89.900 Medications: Active Meds + DC'd Last 24 Hrs Dextrose/Water 25 ML ASDIR PRN IV Glucagon 1 MG ASDIR PRN IM Insulin Human Lispro LOW DOSE SCALE ASDIR SUBQ Sterile Water 1 ML ASDIR PRN IM Propofol 100 ML TITRATE IV (CKD) Midazolam HCl 100 ML TITRATE IV (CKD) Propofol 100 MG ONCE ONE IV (CAN) Epinephrine 8 MG TITRATE IV (CKD) Sodium Chloride 242 ML Norepinephrine Bitartrate 16 MG TITRATE IV Sodium Chloride 234 ML Perflutren Lipid Microsphere DIRECTED ONCE PRN IV Sodium Chloride DIRECTED ONCE PRN IV Sodium Chloride 5 ML ONCE PRN IV Diphenhydramine HCl 50 MG ONCE@1400 IV (DC) Sodium Chloride 1,000 ML BOLUS ONCE ONE IV (DC) Fentanyl Citrate 0 .STK-MED ONE .ROUTE (DC) Epinephrine HCl 254 ML TITRATE IV (DC) Epinephrine HCl 254 ML TITRATE IV (DC) Dextrose/Water 0 .STK-MED ONE .ROUTE (DC) Fentanyl Citrate 50 ML TITRATE IV (CKD) Propofol 100 ML .Q24H ONE IV (CKD) Azithromycin 500 MG DAILY IV Sodium Chloride 250 ML Losartan Potassium 50 MG Q12H PO (DC) Calcium Gluconate/Sodium Chloride 50 ML ONCE ONE IV (DC) Dextrose/Water 50 ML ONCE ONE IV (DC) Insulin Human Regular 10 UNIT ONCE ONE IV (DC) Sodium Bicarbonate 50 MEQ ONCE ONE IV (DC) Sodium Bicarbonate 100 MEQ ONCE ONE IV (DC) Norepinephrine Bitartrate 254 ML .STK-MED ONE IV (DC) Norepinephrine Bitartrate 254 ML TITRATE IV (DC) Norepinephrine Bitartrate 254 ML .STK-MED ONE IV (DC) Cefepime HCl 1 GM Q12HR IV Sterile Water 10 ML Sodium Chloride 2,697 ML ONCE ONE IV (DC) Lorazepam 1 MG Q8H PRN PRN IM (DC) Famotidine 20 MG DAILY PO Hydrochlorothiazide 25 MG DAILY PO (DC) Losartan Potassium 100 MG DAILY PO (DC) Morphine Sulfate 2 MG Q4H PRN PRN IV Sodium Chloride 1,000 ML .Q10H IV (DC) Heparin Sodium (Porcine) 5,000 UNIT Q12HR SUBQ Mupirocin 1 APPLIC BID NASAL Nifedipine 90 MG Q12HR PO (DC) Hydrocodone Bitart/Acetaminophen 1 TAB Q6H PRN P RN PO Carvedilol 25 MG BID MEALS PO (DA) Esmolol HCl 250 ML TITRATE IV (CKD) Nicardipine HCl 250 ML TITRATE IV Physical Exam General appearance: confused, obese Cardiovascular: normal heart sounds, normal S1 S 2 Respiratory/Chest: decreased breath sounds, dull ness to percussion, on oxygen Abdomen: soft, non-tender Extremities: no clubbing, no cyanosis, no edema Musculoskeletal: full range of motion, no muscle spasm Neuro/RADIOTELEGRAPHIST: disoriented Lymphatics: neck normal, no lymphadenopathy Results Findings/Data: Laboratory Tests 06/21/20 1440: [Embedded Image Not Available] 06/21/20 0841: [Embedded Image Not Available] 06/21/20 0841: [Embedded Image Not Available] 06/21/20 0244: [Embedded Image Not Available] 06/21/20 0244: [Embedded Image Not Available] Laboratory Tests 06/21 06/21 1348 0215 Blood Gas Puncture Site Art Line R Radial ABG pH (7.35 - 7.45 pH units) 7.28 *L 7.36 ABG pCO2 (35 - 48 mmHg) 42.7 18.7 *L ABG pO2 (83 - 108 mmHg) 516.7 H 258.6 H ABG PO2/FiO2 Ratio (mm/Hg) 516.70 258.60 ABG HCO3 (21 - 28 mmol/L) 19.9 L 10.7 L ABG Total CO2 (22 - 29 mmol/L) 20.3 L 11.2 L ABG O2 Sat Calc/Denise (94 - 98 %) 100.0 H 99.9 H ABG Base Excess (-2 - 3 mmol/L) -6.6 L -12.6 L Emmanuel Test N/A Positive Sodium (138 - 146 mmol/L) 134 L 131 L Potassium (3.5 - 4.5 mmol/L) 5.7 H 5.7 H Ionized Calcium (1.15 - 1.33 MMOL/L) 0.93 L 1.0 3 L Respiration Rate (12 - 20 /MIN) 20 O2 Delivery Device Adult Vent Bagging Vent Mode ASSIST CONTROL FiO2 (%) 100 100 Instrument (Specimen Descript) Arterial Arteria l Laboratory Tests 06/21 144 1440 1148 Chemistry Sodium (137 - 145 mmol/L) 137 Potassium (3.4 - 5.0 mmol/L) 4.8 Chloride (98 - 107 mmol/L) 101 Carbon Dioxide (22 - 30 mmol/L) 12 L BUN (9 - 20 mg/dL) 62 H Creatinine (0.7 - 1.3 mg/dL) 2.9 H Glomerular Filtr Rate (>60) 32 L Glucose (74 - 106 mg/dL) 296 H Lactic Acid (0.7 - 2.0 mmol/L) 6.2 *H 11.2 *H 9 .6 *H Calcium (8.4 - 10.2 mg/dL) 7.5 L Troponin I (0.012 - 0.033 ng/mL) 0.333 *H 0.206 *H 06/21 06/21 06/21 06/21 06/21 0913 0841 0841 0841 0841 Chemistry Sodium (137 - 145 mmol/L) 135 L Potassium (3.4 - 5.0 mmol/L) 4.4 Chloride (98 - 107 mmol/L) 104 Carbon Dioxide (22 - 30 mmol/L) 14 L BUN (9 - 20 mg/dL) 64 H Creatinine (0.7 - 1.3 mg/dL) 2.7 H Glomerular Filtr Rate (>60) 35 L Glucose (74 - 106 mg/dL) 125 H Lactic Acid (0.7 - 2.0 mmol/L) 4.9 *H Calcium (8.4 - 10.2 mg/dL) 8.4 Magnesium (1.6 - 2.3 mg/dL) 2.4 H Total Bilirubin (0.2 - 1.3 mg/dL) 1.3 Conjugated Bilirubin (0 - 0.3 mg/dL) 0 Unconjugated Bilirubin (0 - 1.1 mg/dL) 0.4 AST (15 - 46 U/L) 332 H ALT (0 - 34 U/L) 198 H Total Alk Phosphatase (38 - 126 U/L) 89 Ammonia (9 - 30 umol/L) 15 CK-MB (CK-2) (0.5 - 5.0 ng/mL) 2.71 Troponin I (0.012 - 0.033 ng/mL) 0.118 H Total Protein (6.3 - 8.2 g/dL) 6.1 L Albumin (3.5 - 5.0 g/dL) 2.9 L 06/21 06/21 06/21 06/21 06/21 0839 0401 0342 0244 0244 Chemistry Sodium (137 - 145 mmol/L) 132 L Potassium (3.4 - 5.0 mmol/L) 5.8 H Chloride (98 - 107 mmol/L) 102 Carbon Dioxide (22 - 30 mmol/L) 8 *L BUN (9 - 20 mg/dL) 57 H Creatinine (0.7 - 1.3 mg/dL) 2.8 H Glomerular Filtr Rate (>60) 34 L Glucose (74 - 106 mg/dL) 89 POC Glucose (74 - 106 MG/DL) 134 H Lactic Acid (0.7 - 2.0 mmol/L) 8.5 *H Calcium (8.4 - 10.2 mg/dL) 8.0 L Magnesium (1.6 - 2.3 mg/dL) 2.5 H CK-MB (CK-2) (0.5 - 5.0 ng/mL) 2.01 Troponin I (0.012 - 0.033 ng/mL) 0.115 H Vitamin B12 (239 - 931 pg/mL) 732 TSH (0.465 - 4.68 MIU/L) 7.590 H Free T4 (0.78 - 2.19 ng/dL) 1.70 06/21 06/21 06/21 0244 0215 0113 Chemistry POC Glucose (74 - 100 mg/dL) 89 113 H Ammonia (9 - 30 umol/L) 45 *H Laboratory Tests 06/21 0244 Coagulation INR 2.0 PT Patient/Control Mix (9.2 - 12.1 SECONDS) 22. 8 H Laboratory Tests 06/21 06/21 06/21 1440 0841 0244 Hematology WBC (5.0 - 12.0 x10 3/uL) 19.0 H 17.0 H 16.5 H RBC (4.70 - 6.10 x10 6/uL) 3.78 L 3.86 L 3.68 L Hgb (14.0 - 18.0 g/dL) 11.2 L 11.4 L 10.7 L Hct (37.0 - 49.0 %) 35.6 L 34.9 L 34.7 L MCV (80 - 94 fL) 94 90 94 MCH (27 - 31 pg) 29.6 29.5 29.1 MCHC (33 - 37 g/dL) 31.5 L 32.7 L 30.8 L RDW (11.5 - 15.5 %) 16.0 H 15.9 H 15.9 H Plt Count (130 - 400 x10 3/uL) 352 339 347 MPV (9.4 - 16.4 fL) 10.6 10.4 10.6 Neut % (Auto) (43 - 65 %) 83.6 H 87.6 H 88.4 H Lymph % (Auto) (20.5 - 45.5 %) 11.2 L 7.0 L 6.9 L Citrus % (Auto) (5.5 - 11.7 %) 3.4 L 4.5 L 3.8 L Eos % (Auto) (0.9 - 2.9 %) 0.0 L 0.0 L 0.0 L Baso % (Auto) (0.2 - 1.0 %) 0.2 0.1 L 0.1 L Neut # (Auto) (2.2 - 4.8 x10 3/uL) 15.91 H 14.8 3 H 14.54 H Lymph # (Auto) (1.3 - 2.9 x10 3/uL) 2.12 1.19 L 1.14 L Citrus # (Auto) (0.3 - 0.8 x10 3/uL) 0.64 0.77 0. 63 Eos # (Auto) (0.0 - 0.2 x10 3/uL) 0.00 0.00 0.0 0 Baso # (Auto) (0.0 - 0.1 x10 3/uL) 0.03 0.02 0. 02 Immature Gran % (0.0 - 2.0 %) 1.6 0.8 0.8 Nucleated RBC % (0 - 1.0 %) 0.5 0.2 0.3 Laboratory Tests 06/21 2035 Toxicology Urine Opiates Screen (NEGATIVE) POSITIVE H Ur Barbiturates, Qual (NEGATIVE) POSITIVE H Ur Phencyclidine Scrn (NEGATIVE) NEGATIVE Ur Amphetamines Screen (NEGATIVE) NEGATIVE U Benzodiazepines Scrn (NEGATIVE) NEGATIVE Urine Cocaine Screen (NEGATIVE) NEGATIVE Urine Cannabinoids (NEGATIVE) NEGATIVE Microbiology: 06/21 1006 BLOOD: Blood Culture - RES 06/21 1006 BLOOD: Blood Culture - RES 06/19 1534 NASAL: MRSA Screen - COMP 06/19 425 BLOOD: Blood Culture - RES 06/19 042 BLOOD: Blood Culture - RES Radiology data Recent Impressions: CAT SCAN - CT ABD PELVIS W/O CONT 06/21 0547 Report Impression - Status: SIGNED Entered: 06/21/2020 0704 IMPRESSION: No free fluid in the abdomen or pelvis to sugges t stent graft leakage or rupture. Unchanged appearance of the thoracoabdominal aor tic stent graft and the right external iliac stent graft. Impression By: Ramesh Spears CAT SCAN - CT HEAD/BRAIN W/O CONT 06/21 0547 Report Impression - Status: SIGNED Entered: 06/21/2020 0652 IMPRESSION: No acute intracranial hemorrhage. Mild chronic microvascular ischemic injuries. Faint calcifications in the bilateral basal gang brown, essentially unchanged since 05/16/2015. Impression By: Ramesh Spears RADIOLOGY - XR CHEST 1 V 06/21 1140 Report Impression - Status: SIGNED Entered: 06/21/2020 1203 IMPRESSION: 1. Endotracheal tube in satisfactory position. 2. Slight increase bilateral infiltrates. Impression By: Leyda Llamas DO CAT SCAN - CT ANGIO CHEST 06/21 1454 Report Impression - Status: SIGNED Entered: 06/21/2020 1519 IMPRESSION: 1. 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 There is no active extravasation of contrast or periaortic hematoma . There continues to be contrast enhancement posterior to the stent b ut within the original lumen of the abdominal aorta in the excluded por tion of the abdominal aorta. 2. Development of distended fluid-filled loops o f small bowel concerning for obstruction measuring up to 4.3 c m in size with questionable area of increased density in a prox imal loop of small bowel just the left of midline which could relat e to ingested material. If there is decreasing hemoglobin or h ematocrit, small bowel intestinal bleed is not excluded. 3. Right basilar pulmonary opacities with patchy bilateral pulmonary opacities is similar to prior exam concerning fo r bilateral pneumonia. Edema is not excluded given the cardiomegaly an d reflux of contrast into the inferior vena cava. 4. Inflammatory change surrounding the kidneys i s now present. Please correlate for acute renal insufficiency. 5. Other findings as above. Dr. Vargas called these findings to Dr. Kleber Newby on 06/21/2020 3:12 PM Impression By: Carmen Vargas MD CAT SCAN - CTA ABD PEL W CONT 06/21 0624 Report Impression - Status: SIGNED Entered: 06/21/2020 4608 IMPRESSION: 1. 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 There is no active extravasation of contrast or periaortic hematoma . There continues to be contrast enhancement posterior to the stent b ut within the original lumen of the abdominal aorta in the excluded por tion of the abdominal aorta. 2. Development of distended fluid-filled loops o f small bowel concerning for obstruction measuring up to 4.3 c m in size with questionable area of increased density in a prox imal loop of small bowel just the left of midline which could relat e to ingested material. If there is decreasing hemoglobin or h ematocrit, small bowel intestinal bleed is not excluded. 3. Right basilar pulmonary opacities with patchy bilateral pulmonary opacities is similar to prior exam concerning fo r bilateral pneumonia. Edema is not excluded given the cardiomegaly an d reflux of contrast into the inferior vena cava. 4. Inflammatory change surrounding the kidneys i s now present. Please correlate for acute renal insufficiency. 5. Other findings as above. Dr. Vargas called these findings to Dr. Kleber Newby on 06/21/2020 3:12 PM Impression By: Carmen Vargas MD RADIOLOGY - XR CHEST 1 V 12/27 1545 Report Impression - Status: SIGNED Entered: 06/21/2020 1601 IMPRESSION: As above. Impression By: [email or web address] - Erick Vargas MD RADIOLOGY - XR CHEST 1 V 06/21 1725 Report Impression - Status: SIGNED Entered: 06/21/2020 1745 IMPRESSION: Interval placement of right-sided central venous catheters, with the tips projecting over the superior vena cava. Interval placement of NG tube, with the distal p ortion coursing to the left abdomen. Unchanged ET tube. Impression By: CjL - Fátima Laicemartine Spears Diagnosis, Assessment Plan Free text A P: 34 year old male with history of aortic dissecti on s/p EVAR came in for hypertensive urgency #Cardiac Arrest - PEA hypotensive. COded for 9 minutes - likely from cardiogenic shock EF 30-34% - on levophed and epinephrine - Aortic dissection ruled out from CTA chest , a bdomen and pelvis - #AMS - 2/2 ativan vs hypertensive encephalopathy - cont to monitor. - improving complaining of headache #CVS - h/o EVAR for aortic dissection and h/o endolea k in the past - seen by Dr. Ramires's group last admission. Dr. Wallace larsen consulted - given picture of hypertensive urgency , will s tart Esmolol and Cardene drip with SBP goal < 120 - pending Cardio consult #HTN - on esomolol and cardene - patient is medication non-compliance - resume home med - headache => tylenol PRN #COVID - pending PCR - CT chest b/l infiltrates at the bases - not hypoxic . will watch for now gi ppx: pepcid dvt ppx: heparin PLAN: - cardiac arrest concerned f or cardiogenic shock. EF of 30-34%. Patient is not a candidate for Baloon pump or Impala due to EVAR and history of aortic graft recently. Dr. Olmedo d/w Dr. Mak for possible s ubclavian baloon pump but it remains high risk. Dr. Olmedo also d/w Dr. Ortiz about his cardiogenic shock etiology. Reduced EF is recent, possible for M.I , Drug use, uncontrolled hypertension. UDS is ordered - Gastric distention and bowel distention seen o n CT abdomen and pelvis , Dr. Amaya was consulted to rule out bowel ischemia g iven lactic acid elevation - Patient change in AMS and elevated lactic acid also raised concerned for sepsis. EEG ordered and neurology consulted. als o help to evaluate possible hypoxic brain injury - Patient Cr has been uptrending, contra st was used for CT today. D/w Dr. Albarado about possible HD if patient becomes more oligouric. Mena catheter was placed if HD is needed Edy Olmedo 06/23/20 1741: Attestations Physician Attestation Agree w/findings plan: I have personally interviewed and examin ed the patient 06/21/2020. All charts, labs, and imaging studies were reviewed. I agree with the resident's findings, exam, and plan. Lungs with rales Sudden decompensation. Code blue. Resuss itated. Emergent CT-chest obtained. No aortic rupture. Not a candidate for impella. Con tinue vasopressors. Continue mechanical ventilation and provide hemodynamic s upport. CC time >40min. No procedure time included in th is time. Electronically Signed by Wilfred Pereira MD R2 on 1 08/22/19 at 2259 Electronically Signed by Edy Olmedo MD on at 1743 RPT #:[id number] END OF REPORT 2020-06-21 17:14:00-00:[address] [facility] ([facility]) Bedside Post Proc - Full REPORT#:[id number] REPORT STATUS: Signed DATE:06/21/20 TIME: 1714 PATIENT: JORGE GOINS UNIT #: [id number] [address] AGE: 34 SEX: M ATTEND: Luis M Olmedo MD ADM AUTHOR: Wilfred Pereira MD R2 * ALL edits or amendments must be made on the rimidi/computer document * Bedside Procedure Note Bedside Procedure Note Start date: 06/21/20 Start time: 1600 Pre-procedure diagnosis: cardiogenic shock, hypotension Post-procedure diagnosis: same Procedure performed: dialysis catheter Performed by: wilfred pereira PGY2 Commercial Stripper(s): none Anesthesia: none Technique/Procedure: Mena HD catheter Placement Date: [06/21/20] Time: [1600] Indication: emergent HD A time-out was completed erin ifying correct patient, procedure, site, positioning , and special equipment if applicable. The patie nt was placed in a dependent position appropriate for central line placement based on the vein to be cannulated. The patient s [RIJ] was prep ped and draped in sterile fashion. 1% Lidocaine was used to anesthetize the surrounding skin area. Ultrasound was used to ident kimberlee the vein and it compressed normally. Ultrasound was used to cannulate the vein and a wire was ad vanced over the needle. A double lumen 16cm catheter was introduced into the [RIJ ] vein using the Seldingertechnique and under ultrasound guidance . The catheter was threaded smoothly over the guide wire and appropriate blo od return was obtained. Each lumen of the catheter w as evacuated of air and flushed with sterile saline. The catheter was then sutured in place to the sk in and a sterile dressing applied. A Chest X-ray will be obtained to confirm placem ent. Estimated Blood Loss: [50] mL The patient tolerated the procedure well and the re were no complications . Specimens removed/altered: none Implant(s): none Complications: none Estimated blood loss in ml's: none Findings: none Electronically Signed by Wilfred Pereira MD R2 on 1 08/22/19 at 2221 RPT #:[id number] END OF REPORT 2020-06-21 17:14:00-00:00 [facility] ([facility]) Bedside Post Proc - Full REPORT#:[id number] REPORT STATUS: Signed DATE:06/21/20 TIME: 1713 PATIENT: JORGE GOINS UNIT #: [id number] ROOM[address]BED: [address] : 86 AGE: 34 SEX: M ATTEND: Luis M Olmedo MD ADM AUTHOR: Wilfred Pereira MD R2 * ALL edits or amendments must be made on the el [employer]/computer document * Wilfred Pereira 06/21/201713: Bedside Procedure Note Bedside Procedure Note Start date: 06/21/20 Start time: 1600 Pre-procedure diagnosis: cardiogenic shock, hypotension Post-procedure diagnosis: same Procedure performed: dialysis catheter Performed by: wilfred pereira PGY2 Commercial Stripper(s): none Anesthesia: none Technique/Procedure: Mena HD catheter Placement Date: [06/21/20] Time: [1600] Indication: emergent HD A time-out was completed erin ifying correct patient, procedure, site, positioning , and special equipment if applicable. The patie nt was placed in a dependent position appropriate for central line placement based on the vein to be cannulated. The patient s [RIJ] was prep ped and draped in sterile fashion. 1% Lidocaine was used to anesthetize the surrounding skin area. Ultrasound was used to ident kimberlee the vein and it compressed normally. Ultrasound was used to cannulate the vein and a wire was ad vanced over the needle. A double lumen 16cm catheter was introduced into the [RIJ ] vein using the Seldingertechnique and under ultrasound guidance . The catheter was threaded smoothly over the guide wire and appropriate blo od return was obtained. Each lumen of the catheter w as evacuated of air and flushed with sterile saline. The catheter was then sutured in place to the sk in and a sterile dressing applied. A Chest X-ray will be obtained to confirm placem ent. Estimated Blood Loss: [50] mL The patient tolerated the procedure well and the re were no complications . Specimens removed/altered: none Implant(s): none Complications: none Estimated blood loss in ml's: none Findings: none Edy Olmedo 06/23/20 1737: Bedside Procedure Note Bedside Procedure Note Recommendations: I was present in the room and supervised the ent honorio procedure Electronically Signed by Wilfred Pereira MD R2 on 1 08/22/19 at 2221 Electronically Signed by Edy Olmedo MD on at 1730 [facility] #:[id number] END OF REPORT 2020-06-21 16:46:00-00:00 [id number] [facility] [address] [place] [address] PATIENT NAME: JORGE GOINS ADMIT DATE: 06/19 ACCOUNT NO: [id number] ROOM NO: C.ICU19 AGE: 34 REPORT TYPE: eECHOCARDIOGRAM REPORT. SEX: M ADMITTING PHYSICIAN:Edy Olmedo MD ATTENDING PHYSICIAN:Edy Olmedo MD *[facility]* [id number] [facility] [address] [place] [address] Transthoracic Echocardiogram Patient: Jorge Goins Study Date: 06/21/2020 BP: 90 / 60 Location: [facility] URN: [id number] : 1985 Age: 34 Height: 71 in / 180.3 cm Gender: M Weight: 197 .8 lb / 89.9 kg BMI/BSA: 27.6 kg/m 2 / 2.14 m 2 *Ordering Physician: * Kleber Newby MD *Interpreting Physician: * Abhi OrtizCustomer Technical Services Manager: * Mauro Salas, RVS Indications: Coded, concern for HI vs Pericardia l Tamponade. Study data: Transthoracic echocardiogram. Proced ure: Transthoracic echocardiography was performed. Images were obta ined using a [employer] [id number] cardiac ultrasound machine. Complete 2D, complet e spectral Doppler, and color Doppler. Patient room number: ICU 19. Findings Left ventricle: The cavity size is normal. There is concentric hypertrophy. Systolic function is moderately red uced. The estimated ejection fraction is 35-39%. Regional wall motio n abnormalities: Moderate hypokinesis of the anteroseptal myocard ium. Features are consistent with a pseudonormal left ventricular filling pattern, with concomitant abnormal relaxation and increased fi lling pressure (grade 2 diastolic dysfunction). PATIENT NAME: JORGE GOINS [id number] Right ventricle: The cavity size is moderately t o severely dilated. Systolic function is moderately reduced. Ventricular septum: Abnormal septal motion. Thes e changes are consistent with RV pressure overload. Left atrium: The atrium is moderately dilated. Right atrium: The atrium is moderately dilated. Aorta: Aortic root: The aortic root is normal in size. Aortic valve: The valve is structurally normal. The valve is trileaflet. There is no evidence of stenosis. Th ere is no regurgitation. Mitral valve: The valve is structurally normal. There is no evidence of stenosis. There is mild to moderate regurgitation, directed eccentrically. Tricuspid valve: The valve is structurally brooklynn l. There is moderate regurgitation. Pulmonic valve: Not well visualized. Pericardium: A small pericardial effusion is cornelio ntified posterior to the heart. Pulmonary arteries: Not well visualized. The main pulmonary artery i s normal-sized. Systemic veins: Inferior vena cava: The vessel is severely dilat ed. Respirophasic changes in dimension are absent. Conclusions Summary: 1. Left ventricle: The cavity size is normal. Th ere is concentric hypertrophy. Systolic function is moderately re duced. The estimated ejection fraction is 35-39%. Moderate hypokines is of the anteroseptal myocardium. Features are consistent with a pseu donormal left ventricular filling pattern, with concomitant a bnormal relaxation and increased filling pressure (grade 2 diastolic d ysfunction). 2. Right ventricle: The cavity size is moderatel y to severely dilated. Systolic function is moderately reduced. 3. Ventricular septum: Abnormal septal motion. T hese changes are consistent with RV pressure overload. 4. Left atrium: The atrium is moderately dilated . 5. Right atrium: The atrium is moderately dilate d. 6. Mitral valve: There is mild to moderate regur gitation, directed eccentrically. 7. Tricuspid valve: There is moderate regurgitat ion. 8. Pericardium, extracardiac: A small pericardia l effusion is identified posterior to the heart. 9. Inferior vena cava: The vessel is severely di lated. Respirophasic changes in dimension are absent. Prepared and electronically signed by PATIENT NAME: JORGE GOINS [id number] Abhi Ortiz DO 06/21/2020 16:46 Electronically Signed by Abhi Ortiz DO on 05/27 01/12 at 1647 PATIENT NAME: JORGE GOINS [id number] 16:12:00-00:00 [facility] Vascular Surgery Progress Note REPORT#:[id number] REPORT STATUS: Signed DATE:06/21/20 TIME: 161 PATIENT: JORGE GOINS UNIT #: [id number] ROOM/BED: [facility] : 86 AGE: 34 SEX: M ATTEND: Luis M Olmedo MD ADM AUTHOR: Kleber Newby MD * ALL edits or amendments must be made on the el [employer]/computer document * Subjective Chief Complaint: Intubated and sedated at time of examination HPI Patient became hypotensive with altered mental s tatus overnight however the vascular surgery team was no t immediately notified. Patient underwent a CT head which was unrevealing as wel l as a noncontrast CT abdomen pelvis which revealed no evidence of rupture and was otherwise unremar kable. Patient's lactate has continued to climb and the p atient remains hypotensive on multiple vasopressors. Patient was taken for CTA chest abdomen pelvis revealing no evidence of rupture. Patient's superior mesenteric artery ap pears widely patent. Patient was returned to the ICU and remains critically u nstable. Prolonged discussion was had with the radiologist who is conc erned for Covid based on the patient's lung appearance on CT scan. Patient also underwe nt stat echocardiogram revealing reduced ejection fraction as well as s evere mitral regurgitation. Unable to obtain review of s ystems given the patient is intubated and sedated at the time of examination. Objective General VS/I O Last Documented: Result Date Time Pulse Ox 100 06/21 0700 B/P 124/70 06/21 07 B/P Mean 91 06/21 07 Pulse 71 06/21 07 Resp 26 06/21 07 FiO2 100 06/21 0523 O2 Delivery BiPAP 06/21 0400 Temp 91.4 06/21 0400 O2 Flow Rate 3 06/20 0926 24 hour I O ending at 0700: 06/21 0700 06/20 1900 Intake Total 3046.00 Output Total Balance 3046.00 Intake, IV 3046.00 Number 0 Bowel Movements Number 1 Incontinent Voids PATIENT WEIGHT: Weight (lb): 198 Weight (oz): 3.13 Weight (kg): 89.900 General appearance: intubated and sedated HEENT: anicteric Neck: supple Cardiovascular: regular rate, hypotensive on mul tiple vasopressors Respiratory: symmetric expansion Genitourinary: zuñiga Extremities: moves all, palpable radial and dors diana pedis pulses bilaterally Pulse assess: Other pulse assess: Dopplerable dorsalis pedis pulses bilaterally Neuro/RADIOTELEGRAPHIST: intubated and sedated Skin: no flank or back ecchymosis Current Medications Medications: Active Meds + DC'd Last 24 Hrs Perflutren Lipid Microsphere DIRECTED ONCE PRN IV Sodium Chloride DIRECTED ONCE PRN IV Sodium Chloride 5 ML ONCE PRN IV Diphenhydramine HCl 50 MG ONCE@1400 IV Sodium Chloride 1,000 ML BOLUS ONCE ONE IV (DC) Fentanyl Citrate 0 .STK-MED ONE .ROUTE (DC) Epinephrine HCl 254 ML TITRATE IV (CKD) Epinephrine HCl 254 ML TITRATE IV (CKD) Dextrose/Water 0 .STK-MED ONE .ROUTE (DC) Fentanyl Citrate 50 ML TITRATE IV (CKD) Propofol 100 ML .Q24H ONE IV (CKD) Azithromycin 500 MG DAILY IV Sodium Chloride 250 ML Losartan Potassium 50 MG Q12H PO (DC) Calcium Gluconate/Sodium Chloride 50 ML ONCE ONE IV (DC) Dextrose/Water 50 ML ONCE ONE IV (DC) Insulin Human Regular 10 UNIT ONCE ONE IV (DC) Sodium Bicarbonate 50 MEQ ONCE ONE IV (DC) Sodium Bicarbonate 100 MEQ ONCE ONE IV (DC) Norepinephrine Bitartrate 254 ML .STK-MED ONE IV (DC) Norepinephrine Bitartrate 254 ML TITRATE IV Norepinephrine Bitartrate 254 ML .STK-MED ONE IV (DC) Cefepime HCl 1 GM Q12HR IV Sterile Water 10 ML Sodium Chloride 2,697 ML ONCE ONE IV (DC) Magnesium 1 GM ONCE ONE IV (DC) Lorazepam 1 MG Q8H PRN PRN IM (DC) Famotidine 20 MG DAILY PO Hydrochlorothiazide 25 MG DAILY PO (DC) Losartan Potassium 100 MG DAILY PO (DC) Morphine Sulfate 2 MG Q4H PRN PRN IV Sodium Chloride 1,000 ML .Q10H IV (DC) Heparin Sodium (Porcine) 5,000 UNIT Q12HR SUBQ Mupirocin 1 APPLIC BID NASAL Nifedipine 90 MG Q12HR PO (DC) Hydrocodone Bitart/Acetaminophen 1 TAB Q6H PRN P RN PO Carvedilol 25 MG BID MEALS PO Esmolol HCl 250 ML TITRATE IV (CKD) Nicardipine HCl 250 ML TITRATE IV Diagnosis, Assessment Plan Free Text A P: Patient is a 34-year-old male with history of ty pe B aortic dissection status post thoracic endovascular aortic repair at [facility] who presents with hypertensive urgency and chest and back easton n. Patient was admitted for impulse control goal blood p ressure less than 120 mmHg and heart rate goal of 60 bpm or less. Patient also noted to have an acute kidney injury with a creatinine on admission of 1.7 up from 1.2. Rosalia ent also has evidence of groundglass opacities on his CT scan concerning for Covid pneumonia and the patient is currently a Covid patient under investigation. Patient still pending Covid send out test. Our recommendations are as follows: Impulse control with blood p ressure to be kept under 120 mmHg systolic and heart rate 60 bpm or less: Continue arterial line Worsening JENNIFER: Zuñiga in place. Patient with elev ated lactate on multiple vasopressors and remains hypotensive rec ommend initiating CRRT. If CRRT is not possible patient likely needs low-flow hemodialy sis as tolerated. Discussed with Dr. Olmedo. Appreciate cardiology recommendations for blood pressure control: Stat echocardiogram performed rev ealing severe mitral regurgitation reduced ejection fraction. Discussed with Dr. Ortiz appreciate re commendations Patient currently critically ill with new CTA ch est abdomen and pelvis personally reviewed and interpreted. There is no evidence of rupture or contrast extravasation. Patient with abdominal distention, eleva kar lactate and dilated loops of bowel on CT scan recommend general surgery consultatio n for evaluation for possible ischemic gut. The patient superior mesenteric ar kory appears widely patent based on CT scan. Vascular surgery will continue to follow. The plan was discussed with the ICU resident in person as well as Dr. Olmedo the ICU attending. Kleber Newby MD [facility] Electronically Signed by Kleber Newby MD on 05/27 01/12 at 1619 RPT #:[id number] END OF REPORT 2020-06-21 14:39:00-00:[address] [facility] ([facility]) Clinical Note REPORT#:[id number] REPORT STATUS: Signed DATE:06/21/20 TIME: 1439 PATIENT: JORGE GOINS UNIT #: [id number] ROOM[address]BED: [address] : 86 AGE: 34 SEX: M ATTEND: Luis M Olmedo MD ADM AUTHOR: Wilfred Pereira MD R2 * ALL edits or amendments must be made on the rimidi/computer document * Clinical Note Note: Patient became hypotensive a round 2am on 06/21, lactic was high at 8.5, 30cc/kg IVF was given, Cefepime and Azithromycin was giv en. Patient became lethargic, Bipap was initiated. A-line and Zuñiga wa s place for strict monitoring. CT head and abomen w/o contrast was performed with no acute abnormalities noted on exam. Patient then return to his baseline early in morning around 6am. Around 11:30 patient developed PEA on Levo with HR of 54 and MAP of 50s, not responding to painful stimuli. CPR was intiated , patient received 2 round of epi, 2 round of Bicarb and 1 round of Calcium chloride. epi d rip was started. Patient was also intubated during cardiac arrest at 11:32. R OSC was obtained within 9 minutes of resuscitation. Concerned for aortic d issection and aorta rupture , patient was taken to CT chest , abdomen and pelvis with contrast was performed discussed with vascular surg alonzo which ruled out aortic dissection. Given patient 's elevated lactic and change in mental status, suspicion for seizures from hypotension vs infectious etiology cannot be rul ed out. Will obtain EEG, Neurology consult and ID con sult. Continue with antibiotics. Have discussed the case with Dr. Odin Shahid abo ks management of patient. Plan for central line and possible Mariusz HD catheter given worse haim kidney function. Mulitple attempt to reach emergency contact but I was not able to get in contact. Patient remained critical. Continue to monitor Electronically Signed by Wilfred Pereira MD R2 on 1 08/22/19 at 1529 RPT #:[id number] END OF REPORT 2020-06-21 14:39:00-00:[address] [facility] ([facility]) Clinical Note REPORT#:[id number] REPORT STATUS: Signed DATE:06/21/20 TIME: 1439 PATIENT: JORGE GOINS UNIT #: [id number] ROOM/BED: [address] : 86 AGE: 34 SEX: M ATTEND: Luis M Olmedo MD ADM AUTHOR: Wilfred Pereira MD R2 * ALL edits or amendments must be made on the rimidi/computer document * Wilfred Pereira 06/21/20 1439: Clinical Note Note: Patient became hypotensive a round 2am on 06/21, lactic was high at 8.5, 30cc/kg IVF was given, Cefepime and Azithromycin was giv en. Patient became lethargic, Bipap was initiated. A-line and Zuñiga wa s place for strict monitoring. CT [facility] w[facility]o contrast was performed with no acute abnormalities noted on exam. Patient then return to his baseline early in morning around 6am. Around 11:30 patient developed PEA on Levo with HR of 54 and MAP of 50s, not responding to painful stimuli. CPR was intiated , patient received 2 round of epi, 2 round of Bicarb and 1 round of Calcium chloride. epi d rip was started. Patient was also intubated during cardiac arrest at 11:32. R OSC was obtained within 9 minutes of resuscitation. Concerned for aortic d issection and aorta rupture , patient was taken to CT chest , abdomen and pelvis with contrast was performed discussed with vascular surg alonzo which ruled out aortic dissection. Given patient 's elevated lactic and change in mental status, suspicion for seizures from hypotension vs infectious etiology cannot be rul ed out. Will obtain EEG, Neurology consult and ID con sult. Continue with antibiotics. Have discussed the case with Dr. Odin Shahid abo ks management of patient. Plan for central line and possible Mariusz HD catheter given worse haim kidney function. Mulitple attempt to reach emergency contact but I was not able to get in contact. Patient remained critical. Continue to monitor Electronically Signed by Wilfred Pereira MD R2 on 1 08/22/19 at 1529 Electronically Signed by Edy Olmedo MD on 02/13 at 1424 RPT #:[id number] END OF REPORT 2020-06-21 13:54:00-00:00 [facility]) Clinical Note REPORT#:[id number] REPORT STATUS: Signed DATE:06/21/20 TIME: 1354 PATIENT: JORGE GOINS UNIT #: [id number] [address] : [birth year] AGE: 34 SEX: M ATTEND: Luis M Olmedo MD ADM AUTHOR: Wilfred Pereira MD R2 * ALL edits or amendments must be made on the rimidi/computer document * Clinical Note Note: patient is hypotenisve requi ring emergent CT abdomen with contrast. patient had history of hives with iodine and shelfish. patie nt is already on epi drip. Benadryl ordered. D/w radiol ogist. Patient needs stat CT abdomen and pelvis with contrast to rule out rupture d aorta. if its true. pt need to be take to OR right after. Patient already had CT with contrast duri ng this admission with no adverse events with pre-medicated of benadryl. at 1357 RPT #:[id number] END OF REPORT 2020-06-21 13:54:00-00:[address] [facility] ([facility]) Clinical Note REPORT#:[id number] REPORT STATUS: Signed DATE:06/21/20 TIME: 1354 PATIENT: JORGE GOINS UNIT #: [id number] ROOM/BED: [facility]-A : 86 AGE: 34 SEX: M ATTEND: Luis M Olmedo MD ADM AUTHOR: Wilfred Pereira MD R2 * ALL edits or amendments must be made on the [employer] document * Wilfred Pereira 06/21/20 1354: Clinical Note Note: patient is hypotenisve requi ring emergent CT abdomen with contrast. patient had history of hives with iodine and shelfish. patie nt is already on epi drip. Benadryl ordered. D/w radiol ogist. Patient needs stat CT abdomen and pelvis with contrast to rule out rupture d aorta. if its true. pt need to be take to OR right after. Patient already had CT with contrast duri ng this admission with no adverse events with pre-medicated of benadryl. Electronically Signed by Wilfred Pereira MD R2 on 1 08/22/19 at 1357 Electronically Signed by Edy Olmedo MD on 02/13 at 1424 RPT #:[id number] END OF REPORT 2020-06-21 12:07:00-00:[address] [facility] ([facility]) Bedside Post Proc - Full REPORT#:[id number] REPORT STATUS: Signed DATE:06/21/20 TIME: 1207 PATIENT: JORGE GOINS UNIT #: [id number] ROOM/BED: ICU19-A : 86 AGE: 34 SEX: M ATTEND: Luis M Olmedo MD ADM AUTHOR: Wilfred Pereira MD R2 * ALL edits or amendments must be made on the [employer] document * Bedside Procedure Note Bedside Procedure Note Start date: 06/21/20 Start time: 1600 Pre-procedure diagnosis: cardiogenic shock, s/p CPR Post-procedure diagnosis: same Procedure performed: central line placement Performed by: wilfred pereira PGY2 Commercial Stripper(s): none Anesthesia: none Technique/Procedure: Central Venous Catheter (CVC, Central Line) Plac ement Date: [06/21/20] Time: [1600] Indication: Hemodynamic monitoring/Intravenous a ccess A time-out was completed erin ifying correct patient, procedure, site, positioning , and special equipment if applicable. The patie nt was placed in a dependent position appropriate for central line placement based on the vein to be cannulated. The patient s [right IJ] was prepped and draped in sterile fashion. 1% Lidocaine was used to anesthetize the surrounding skin are a. Ultrasound was used to ident kimberlee the vein and it compressed normally. Ultrasound was used to cannulate the vein and a wire was ad vanced over the needle. A triple lumen [16cm ] Cordi s catheter was introduced into the [RIJ] vein using the Seldingertechnique and u nder ultrasound guidance. The catheter was threaded smoothly over the guide wire and appropriate blo od return was obtained. Each lumen of the catheter w as evacuated of air and flushed with sterile saline. The catheter was then sutured in place to the sk in and a sterile dressing applied. A Chest X-ray will be obtained to confirm placem ent. Estimated Blood Loss: [50] mL The patient tolerated the procedure well and the re were no complications . Specimens removed/altered: none Implant(s): none Complications: none Estimated blood loss in ml's: none Findings: none Electronically Signed by Wilfred Pereira MD R2 on 1 08/22/19 at 2219 RPT #:[id number] END OF REPORT 2020-06-21 12:07:00-00:00 [facility] Bedside Post Proc - Full REPORT#:[id number] REPORT STATUS: Signed DATE:06/21/20 TIME: 1207 PATIENT: JORGE GOINS UNIT #: [id number] ROOM/BED: [address] : 86 AGE: 34 SEX: M ATTEND: Luis M Olmedo MD ADM AUTHOR: Wilfred Pereira MD R2 * ALL edits or amendments must be made on the el ectronic/computer document * Wilfred Pereira 06/21/20 1207: Bedside Procedure Note Bedside Procedure Note Start date: 06/21/20 Start time: 1600 Pre-procedure diagnosis: cardiogenic shock, s/p CPR Post-procedure diagnosis: same Procedure performed: central line placement Performed by: wilfred pereira PGY2 Commercial Stripper(s): none Anesthesia: none Technique/Procedure: Central Venous Catheter (CVC, Central Line) Plac ement Date: [06/21/20] Time: [1600] Indication: Hemodynamic monitoring/Intravenous a ccess A time-out was completed erin ifying correct patient, procedure, site, positioning , and special equipment if applicable. The patie nt was placed in a dependent position appropriate for central line placement based on the vein to be cannulated. The patient s [right IJ] was prepped and draped in sterile fashion. 1% Lidocaine was used to anesthetize the surrounding skin are a. Ultrasound was used to ident kimberlee the vein and it compressed normally. Ultrasound was used to cannulate the vein and a wire was ad vanced over the needle. A triple lumen [16cm ] Cordi s catheter was introduced into the [RIJ] vein using the Seldingertechnique and u nder ultrasound guidance. The catheter was threaded smoothly over the guide wire and appropriate blo od return was obtained. Each lumen of the catheter w as evacuated of air and flushed with sterile saline. The catheter was then sutured in place to the sk in and a sterile dressing applied. A Chest X-ray will be obtained to confirm placem ent. Estimated Blood Loss: [50] mL The patient tolerated the procedure well and the re were no complications . Specimens removed/altered: none Implant(s): none Complications: none Estimated blood loss in ml's: none Findings: none Edy Olmedo 06/23/201736: Bedside Procedure Note Bedside Procedure Note Recommendations: I was present in the room and supervised the ent honorio procedure at 6827 Electronically Signed by Edy Olmedo MD on at 9622 RPT #:[id number] END OF REPORT 2020-06-21 12:06:00-00:[address] [facility] ([facility]) Post Code Blue Note REPORT#:[id number] REPORT STATUS: Signed DATE:06/21/20 TIME: 1206 PATIENT: JORGE GOINS UNIT #: [id number] ROOM/BED: [facility]-A : 86 AGE: 34 SEX: M ATTEND: Luis M Olmedo MD ADM AUTHOR: Wilfred Pereira MD R2 * ALL edits or amendments must be made on the [employer] document * Post code note Code location: MICU (19) Reason code was called: PEA, cardiogenic shock Initial rhythm: normal sinus rhythm Airway management: intubated during code Chest compressions: in process upon arrival Result of the code: remained current location Primary service present during code: Yes Primary service notified: Yes Attending notified: Yes Family notified (whom): ex- was called Critical care time: Minutes: 45 Comments: please see code blue notes at 2216 RPT #:[id number] END OF REPORT 2020-06-21 12:06:00-00:[address] [facility] ([facility]) Post Code Blue Note REPORT#:[id number] REPORT STATUS: Signed DATE:06/21/20 TIME: 1206 PATIENT: JORGE GOINS UNIT #: [id number] ROOM/BED: [facility]20-A : 86 AGE: 34 SEX: M ATTEND: Luis M Olmedo MD ADM AUTHOR: Wilfred Pereira MD R2 * ALL edits or amendments must be made on the [employer] document * Wilfred Pereira 06/21/20 1206: Post code note Code location: MICU (19) Reason code was called: PEA, cardiogenic shock Initial rhythm: normal sinus rhythm Airway management: intubated during code Chest compressions: in process upon arrival Result of the code: remained current location Primary service present during code: Yes Primary service notified: Yes Attending notified: Yes Family notified (whom): ex- was called Critical care time: Minutes: 45 Comments: please see code blue notes Electronically Signed by Wilfred Pereira MD R2 on 1 08/22/19 at 2216 Electronically Signed by Edy Olmedo MD on 02/13 at 1409 RPT #:[id number] END OF REPORT 2020-06-21 11:21:00-00:[address] [facility] ([facility]) Nephrology Progress Note REPORT#:[id number] REPORT STATUS: Signed DATE:06/21/20 TIME: 1121 PATIENT: JORGE GOINS UNIT #: [id number] ROOM/BED: [address] : 86 AGE: 34 SEX: M ATTEND: Luis M Olmedo MD ADM AUTHOR: Ceferino De La Garza MD * ALL edits or amendments must be made on the rimidi/computer document * Subjective Comments: became altered overnight bp dropped requiring pressors no evidence of bleeding uop still good Objective General VS/I O: Vital Signs: Date Time Temp Pulse Resp B/P B/P Pulse O2 O2 F low FiO2 Mean Ox Delivery Rate 06/21 0700 71 26 124/70 91 100 06/21 0645 71 27 130/72 94 100 06/21 0630 72 30 131/77 94 100 06/21 0615 71 20 130/71 92 100 06/21 0607 71 34 115/72 87 100 06/21 0600 71 100 06/21 0544 70 100 06/21 0530 69 100 06/21 0523 78 100 100 06/21 0515 73 27 100 06/21 0500 69 40 100 06/21 0445 69 31 100 06/21 0430 69 30 100 06/21 0415 71 28 100 06/21 0409 71 36 126/74 95 100 06/21 0400 69 24 100 06/21 0400 33.0 71 25 107/73 84 100 BiPAP 35 06/21 0345 60 10 100 06/21 0330 57 9 100 06/21 0315 64 13 100 06/21 0300 68 19 100 06/21 0245 72 23 99 06/21 0240 71 21 85/61 68 100 06/21 0235 69 21 84/58 66 100 06/21 0231 69 21 77/56 62 100 06/21 0230 69 17 99 06/21 0225 71 17 81/58 65 100 06/21 0225 78 100 35 06/21 0221 75 22 93/57 70 96 06/21 0215 75 23 95/61 74 99 06/21 0213 104/65 76 06/21 0200 64 15 70/53 58 97 06/21 0158 64 9 74/51 58 96 06/21 0151 68 11 74/49 57 100 06/21 0145 74 16 100 06/21 0137 80 22 84/50 61 100 06/21 0135 80 23 81/54 61 90 06/21 0131 82 27 84/51 59 99 06/21 0130 82 25 96 06/21 0121 79 25 98/66 77 100 06/21 0119 77 26 87/60 68 99 06/21 0116 75 22 84/50 63 99 06/21 0115 74 21 99 06/21 0101 68 12 93/47 67 99 06/21 0100 69 12 99 06/21 0046 78 23 108/62 78 100 06/21 0045 79 21 99 06/21 0044 79 22 107/59 76 99 06/21 0030 81 26 87/63 71 99 06/21 0015 81 22 99/68 79 100 06/21 0000 80 31 96/62 73 98 06/21 0000 34.4 72 16 108/62 77 99 Room air 06/20 2345 79 16 94/62 73 100 06/20 2331 79 15 97/63 73 98 06/20 2330 79 36 97 06/20 2315 78 31 91/66 75 97 06/20 2300 77 28 95/66 75 95 06/20 2245 74 16 102/67 80 100 06/20 2230 71 24 95/62 74 100 06/20 2215 70 34 93/60 72 98 06/20 2200 71 24 97/59 72 98 06/20 2151 71 27 89/61 70 100 06/20 2145 70 30 89/60 71 100 06/20 2130 71 30 96/62 74 100 06/20 2115 71 30 93/62 72 100 06/20 2100 69 29 94/62 72 100 06/205 70 35 95/59 73 99 06/20 2031 71 28 101/58 75 100 06/20 2030 71 31 100 06/20 2016 72 32 103/65 79 97 06/20 2015 72 28 97 06/20 2000 33.2 72 25 106/71 82 99 Room air 06/20 2000 72 25 106/71 83 99 06/20 1945 73 27 103/72 83 98 06/20 1931 74 24 104/73 84 98 06/20 1930 74 28 98 06/20 1915 75 27 100/67 79 99 06/20 1900 76 29 98/67 78 100 06/20 1706 80 26 99 06/20 1700 80 27 98 06/20 1645 80 31 99 06/20 1632 81 94/72 80 96 06/20 1630 81 99 06/20 1615 83 28 94 06/20 1606 82 25 104/55 72 94 06/20 1600 82 37 96/57 69 95 06/20 1556 81 31 100/50 70 100 06/20 1551 81 30 95/63 73 99 06/20 1546 80 34 91/72 77 98 06/20 1545 79 37 99 06/20 1541 79 25 100/55 71 97 06/20 1535 77 26 108/70 83 100 06/20 1530 76 31 103/65 80 100 06/20 1525 77 27 102/71 81 99 06/20 1523 33 106/72 83 100 06/20 1517 80 37 113/68 83 100 06/20 1515 84 06/20 1500 79 27 100 06/20 1445 77 32 100 06/20 1435 75 27 86/58 66 99 06/20 1430 73 36 06/20 1415 76 33 94/53 68 98 06/20 1400 79 30 97 06/20 1346 76 28 104/58 75 100 06/20 1345 75 33 100 06/20 1330 75 32 102/57 78 99 06/20 1315 76 30 109/58 79 100 06/20 1301 78 30 103/78 87 99 06/20 1300 76 32 100 06/20 1245 79 32 112/69 86 96 06/20 1231 76 34 113/65 83 100 06/20 1230 76 26 100 06/20 1215 76 28 107/59 78 100 06/20 1200 77 16 120/75 92 99 06/20 1145 78 17 114/76 91 99 06/20 1130 79 25 114/70 86 100 24 hour I O ending at 0700: 06/21 0700 06/20 1900 Intake Total 3046.00 Output Total Balance 3046.00 Intake, IV 3046.00 Number 0 Bowel Movements Number 1 Incontinent Voids Medications Active Meds + DC'd Last 24 Hrs Azithromycin 500 MG DAILY IV Sodium Chloride 250 ML Losartan Potassium 50 MG Q12H PO (DC) Calcium Gluconate/Sodium Chloride 50 ML ONCE ONE IV (DC) Dextrose/Water 50 ML ONCE ONE IV (DC) Insulin Human Regular 10 UNIT ONCE ONE IV (DC) Sodium Bicarbonate 50 MEQ ONCE ONE IV (DC) Sodium Bicarbonate 100 MEQ ONCE ONE IV (DC) Norepinephrine Bitartrate 254 ML .STK-MED ONE IV (DC) Norepinephrine Bitartrate 254 ML TITRATE IV Norepinephrine Bitartrate 254 ML .STK-MED ONE IV (DC) Cefepime HCl 1 GM Q12HR IV Sterile Water 10 ML Sodium Chloride 2,697 ML ONCE ONE IV (DC) Magnesium 1 GM ONCE ONE IV (DC) Lorazepam 1 MG Q8H PRN PRN IM (DC) Famotidine 20 MG DAILY PO Hydrochlorothiazide 25 MG DAILY PO (DC) Losartan Potassium 100 MG DAILY PO (DC) Morphine Sulfate 2 MG Q4H PRN PRN IV Sodium Chloride 1,000 ML .Q10H IV (DC) Heparin Sodium (Porcine) 5,000 UNIT Q12HR SUBQ Mupirocin 1 APPLIC BID NASAL Nifedipine 90 MG Q12HR PO (DC) Hydrocodone Bitart/Acetaminophen 1 TAB Q6H PRN P RN PO Carvedilol 25 MG BID MEALS PO Esmolol HCl 250 ML TITRATE IV (CKD) Nicardipine HCl 250 ML TITRATE IV Diagnosis, Assessment Plan Free Text A P: JENNIFER hypotension AAA lactic acidosis severe metabolic acidosis - cr stable from yesterday -?barron op hemodynamic changes - got some iv bicarb, lactic acid resolving -? seizures due to hypotension - agree with hold ing bp meds - coded during exam- PEA arrest - intubated - will repeat labs - monitor at 1017 RPT #:[id number] END OF REPORT 2020-06-21 09:32:00-00:[address] [facility] ([facility]) Cardiology Progress Note REPORT#:[id number] REPORT STATUS: Signed DATE:06/21/20 TIME: 931 PATIENT: JORGE GOINS UNIT #: [id number] ROOM/BED: [place] [address]-A : 86 AGE: 34 SEX: M ATTEND: Luis M Olmedo MD ADM AUTHOR: Abhi Ortiz DO * ALL edits or amendments must be made on the el ectronic/computer document * Subjective Free Text Subj Notes Free Text Subj Notes: ams last night/ this am. Objective General VS/I O: 24 hour I O ending at 0700: 06/21 0700 06/20 1900 Intake Total 3046.00 Output Total Balance 3046.00 Intake, IV 3046.00 Number 0 Bowel Movements Number 1 Incontinent Voids Vital Signs: Date Time Temp Pulse Resp B/P B/P Pulse O2 O2 F low FiO2 Mean Ox Delivery Rate 06/21 0700 71 26 124/70 91 100 06/21 0645 71 27 130/72 94 100 06/21 0630 72 30 131/77 94 100 06/21 0615 71 20 130/71 92 100 06/21 0607 71 34 115/72 87 100 06/21 0600 71 100 06/21 0544 70 100 06/21 0530 69 100 06/21 0523 78 100 100 06/21 0515 73 27 100 06/21 0500 69 40 100 06/21 0445 69 31 100 06/21 0430 69 30 100 06/21 0415 71 28 100 06/21 0409 71 36 126/74 95 100 06/21 0400 69 24 100 06/21 0400 91.4 71 25 107/73 84 100 BiPAP 35 06/21 0345 60 10 100 06/21 0330 57 9 100 06/21 0315 64 13 100 06/21 0300 68 19 100 06/21 0245 72 23 99 06/21 0240 71 21 85/61 68 100 06/21 0235 69 21 84/58 66 100 06/21 0231 69 21 77/56 62 100 06/21 0230 69 17 99 06/21 0225 71 17 81/58 65 100 06/21 0225 78 100 35 06/21 0221 75 22 93/57 70 96 06/21 0215 75 23 95/61 74 99 06/21 0213 104/65 76 06/21 0200 64 15 70/53 58 97 06/21 0158 64 9 74/51 58 96 06/21 0151 68 11 74/49 57 100 06/21 0145 74 16 100 06/21 0137 80 22 84/50 61 100 06/21 0135 80 23 81/54 61 90 06/21 0131 82 27 84/51 59 99 06/21 0130 82 25 96 06/21 0121 79 25 98/66 77 100 06/21 0119 77 26 87/60 68 99 06/21 0116 75 22 84/50 63 99 06/21 0115 74 21 99 06/21 0101 68 12 93/47 67 99 06/21 0100 69 12 99 06/21 0046 78 23 108/62 78 100 06/21 0045 79 21 99 06/21 0044 79 22 107/59 76 99 06/21 0030 81 26 87/63 71 99 06/21 0015 81 22 99/68 79 100 06/21 0000 80 31 96/62 73 98 06/21 0000 93.9 72 16 108/62 77 99 Room air 06/20 2345 79 16 94/62 73 100 06/20 2331 79 15 97/63 73 98 06/20 2330 79 36 97 06/20 2315 78 31 91/66 75 97 06/20 2300 77 28 95/66 75 95 06/20 2245 74 16 102/67 80 100 06/20 2230 71 24 95/62 74 100 06/20 2215 70 34 93/60 72 98 06/20 2200 71 24 97/59 72 98 06/20 2151 71 27 89/61 70 100 06/20 2145 70 30 89/60 71 100 06/20 2130 71 30 96/62 74 100 06/20 2115 71 30 93/62 72 100 06/20 2100 69 29 94/62 72 100 06/20 2045 70 35 95/59 73 99 06/20 2031 71 28 101/58 75 100 06/20 2030 71 31 100 06/20 2016 72 32 103/65 79 97 06/20 2015 72 28 97 06/20 2000 91.8 72 25 106/71 82 99 Room air 06/20 2000 72 25 106/71 83 99 06/20 1945 73 27 103/72 83 98 06/20 1931 74 24 104/73 84 98 06/20 1930 74 28 98 06/20 1915 75 27 100/67 79 99 06/20 1900 76 29 98/67 78 100 06/20 1706 80 26 99 06/20 1700 80 27 98 06/20 1645 80 31 99 06/20 1632 81 94/72 80 96 06/20 1630 81 99 06/20 1615 83 28 94 06/20 1606 82 25 104/55 72 94 06/20 1600 82 37 96/57 69 95 06/20 1556 81 31 100/50 70 100 06/20 1551 81 30 95/63 73 99 06/20 1546 80 34 91/72 77 98 06/20 1545 79 37 99 06/20 1541 79 25 100/55 71 97 06/20 1535 77 26 108/70 83 100 06/20 1530 76 31 103/65 80 100 06/20 1525 77 27 102/71 81 99 06/20 1523 33 106/72 83 100 06/20 1517 80 37 113/68 83 100 06/20 1515 84 06/20 1500 79 27 100 06/20 1445 77 32 100 06/20 1435 75 27 86/58 66 99 06/20 1430 73 36 06/20 1415 76 33 94/53 68 98 06/20 1400 79 30 97 06/20 1346 76 28 104/58 75 100 06/20 1345 75 33 100 06/20 1330 75 32 102/57 78 99 06/20 1315 76 30 109/58 79 100 06/20 1301 78 30 103/78 87 99 06/20 1300 76 32 100 06/20 1245 79 32 112/69 86 96 06/20 1231 76 34 113/65 83 100 06/20 1230 76 26 100 06/20 1215 76 28 107/59 78 100 06/20 1200 77 16 120/75 92 99 06/20 1145 78 17 114/76 91 99 06/20 1130 79 25 114/70 86 100 06/20 1115 77 15 119/72 91 100 06/20 1100 76 21 128/75 97 100 06/20 1045 76 25 119/70 91 99 06/20 1030 75 17 129/74 95 100 06/20 1015 74 26 112/77 91 100 06/20 1000 74 25 120/77 92 100 06/20 0945 73 24 126/79 98 100 PATIENT WEIGHT: Weight (lb): 198 Weight (oz): 3.13 Weight (kg): 89.900 Medications: Active Meds + DC'd Last 24 Hrs Azithromycin 500 MG DAILY IV Sodium Chloride 250 ML Losartan Potassium 50 MG Q12H PO Calcium Gluconate/Sodium Chloride 50 ML ONCE ONE IV (DC) Dextrose/Water 50 ML ONCE ONE IV (DC) Insulin Human Regular 10 UNIT ONCE ONE IV (DC) Sodium Bicarbonate 50 MEQ ONCE ONE IV (DC) Sodium Bicarbonate 100 MEQ ONCE ONE IV (DC) Norepinephrine Bitartrate 254 ML .STK-MED ONE IV (DC) Norepinephrine Bitartrate 254 ML TITRATE IV Norepinephrine Bitartrate 254 ML .STK-MED ONE IV (DC) Cefepime HCl 1 GM Q12HR IV Sterile Water 10 ML Sodium Chloride 2,697 ML ONCE ONE IV (DC) Magnesium 1 GM ONCE ONE IV (DC) Lorazepam 1 MG Q8H PRN PRN IM (DC) Famotidine 20 MG DAILY PO Hydrochlorothiazide 25 MG DAILY PO Losartan Potassium 100 MG DAILY PO (DC) Morphine Sulfate 2 MG Q4H PRN PRN IV Sodium Chloride 1,000 ML .Q10H IV (DC) Heparin Sodium (Porcine) 5,000 UNIT Q12HR SUBQ Mupirocin 1 APPLIC BID NASAL Nifedipine 90 MG Q12HR PO (CKD) Hydrocodone Bitart/Acetaminophen 1 TAB Q6H PRN P RN PO Carvedilol 25 MG BID MEALS PO Esmolol HCl 250 ML TITRATE IV (CKD) Nicardipine HCl 250 ML TITRATE IV Physical Exam General appearance: alert, awake Head/Eyes: atraumatic, clear cornea, EOMI, brooklynn l conjunctiva/sclera, normocephalic, PERRL, PERRLA ENT: normal nose, normal pharynx Neck: full range of motion, non-tender, normal thyroid, supple/no meningismus, no bruit/NL carotids, no JVD, no lymphadenopathy , no masses or swelling Respiratory: clear to auscultation, no distress Abdomen: non-tender, normal bowel sounds , no distention, no guarding, no mass/ organomegaly, no pulsatile mass, no rebound Upper extremity: UE assessment: normal capillary refill, no timur a Lower extremity: LE assessment: normal capillary refill, no timur a Musculoskeletal: full range of motion, normal in spection 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, oriented X 3 Skin: dry, intact Lymphatics: axilla normal, inguinal normal, neck normal, no lymphadenopathy Psychiatry: normal judgment/insight, normal mood , no hallucinations Results Findings/Data: Laboratory Tests 06/21 215 Blood Gas Puncture Site R Radial ABG pH (7.35 - 7.45 pH units) 7.36 ABG pCO2 (35 - 48 mmHg) 18.7 *L ABG pO2 (83 - 108 mmHg) 258.6 H ABG PO2/FiO2 Ratio (mm/Hg) 258.60 ABG HCO3 (21 - 28 mmol/L) 10.7 L ABG Total CO2 (22 - 29 mmol/L) 11.2 L ABG O2 Sat Calc/Denise (94 - 98 %) 99.9 H ABG Base Excess (-2 - 3 mmol/L) -12.6 L Emmanuel Test Positive Sodium (138 - 146 mmol/L) 131 L Potassium (3.5 - 4.5 mmol/L) 5.7 H Ionized Calcium (1.15 - 1.33 MMOL/L) 1.03 L O2 Delivery Device Bagging FiO2 (%) 100 Instrument (Specimen Descript) Arterial Laboratory Tests 06/21 06/21 06/21 06/21 06/21 0913 0841 0841 0841 0841 Chemistry Sodium (137 - 145 mmol/L) 135 L Potassium (3.4 - 5.0 mmol/L) 4.4 Chloride (98 - 107 mmol/L) 104 Carbon Dioxide (22 - 30 mmol/L) 14 L BUN (9 - 20 mg/dL) 64 H Creatinine (0.7 - 1.3 mg/dL) 2.7 H Glomerular Filtr Rate (>60) 35 L Glucose (74 - 106 mg/dL) 125 H Lactic Acid (0.7 - 2.0 mmol/L) 4.9 *H Calcium (8.4 - 10.2 mg/dL) 8.4 Magnesium (1.6 - 2.3 mg/dL) 2.4 H Total Bilirubin (0.2 - 1.3 mg/dL) 1.3 Conjugated Bilirubin (0 - 0.3 mg/dL) 0 Unconjugated Bilirubin (0 - 1.1 mg/dL) 0.4 AST (15 - 46 U/L) 332 H ALT (0 - 34 U/L) 198 H Total Alk Phosphatase (38 - 126 U/L) 89 Ammonia (9 - 30 umol/L) 15 CK-MB (CK-2) (0.5 - 5.0 ng/mL) 2.71 Troponin I (0.012 - 0.033 ng/mL) 0.118 H Total Protein (6.3 - 8.2 g/dL) 6.1 L Albumin (3.5 - 5.0 g/dL) 2.9 L 06/212 4 0244 0244 Chemistry Sodium (137 - 145 mmol/L) 132 L Potassium (3.4 - 5.0 mmol/L) 5.8 H Chloride (98 - 107 mmol/L) 102 Carbon Dioxide (22 - 30 mmol/L) 8 *L BUN (9 - 20 mg/dL) 57 H Creatinine (0.7 - 1.3 mg/dL) 2.8 H Glomerular Filtr Rate (>60) 34 L Glucose (74 - 106 mg/dL) 89 Lactic Acid (0.7 - 2.0 mmol/L) 8.5 *H Calcium (8.4 - 10.2 mg/dL) 8.0 L Magnesium (1.6 - 2.3 mg/dL) 2.5 H Ammonia (9 - 30 umol/L) 45 *H CK-MB (CK-2) (0.5 - 5.0 ng/mL) 2.01 Troponin I (0.012 - 0.033 ng/mL) 0.115 H Vitamin B12 (239 - 931 pg/mL) 732 TSH (0.465 - 4.68 MIU/L) 7.590 H Free T4 (0.78 - 2.19 ng/dL) 1.70 06/21 Chemistry POC Glucose (74 - 100 mg/dL) 89 113 H 134 H 139 H Laboratory Tests 06/21 244 Coagulation INR 2.0 PT Patient/Control Mix (9.2 - 12.1 SECONDS) 22. 8 H Laboratory Tests 06/2141 0244 Hematology WBC (5.0 - 12.0 x10 3/uL) 17.0 H 16.5 H RBC (4.70 - 6.10 x10 6/uL) 3.86 L 3.68 L Hgb (14.0 - 18.0 g/dL) 11.4 L 10.7 L Hct (37.0 - 49.0 %) 34.9 L 34.7 L MCV (80 - 94 fL) 90 94 MCH (27 - 31 pg) 29.5 29.1 MCHC (33 - 37 g/dL) 32.7 L 30.8 L RDW (11.5 - 15.5 %) 15.9 H 15.9 H Plt Count (130 - 400 x10 3/uL) 339 347 MPV (9.4 - 16.4 fL) 10.4 10.6 Neut % (Auto) (43 - 65 %) 87.6 H 88.4 H Lymph % (Auto) (20.5 - 45.5 %) 7.0 L 6.9 L Citrus % (Auto) (5.5 - 11.7 %) 4.5 L 3.8 L Eos % (Auto) (0.9 - 2.9 %) 0.0 L 0.0 L Baso % (Auto) (0.2 - 1.0 %) 0.1 L 0.1 L Neut # (Auto) (2.2 - 4.8 x10 3/uL) 14.83 H 14.5 4 H Lymph # (Auto) (1.3 - 2.9 x10 3/uL) 1.19 L 1.14 L Citrus # (Auto) (0.3 - 0.8 x10 3/uL) 0.77 0.63 Eos # (Auto) (0.0 - 0.2 x10 3/uL) 0.00 0.00 Baso # (Auto) (0.0 - 0.1 x10 3/uL) 0.02 0.02 Immature Gran % (0.0 - 2.0 %) 0.8 0.8 Nucleated RBC % (0 - 1.0 %) 0.2 0.3 Laboratory Tests 06/21 06/21 06/21 06/21 0913 0841 0342 0244 Chemistry Magnesium (1.6 - 2.3 mg/dL) 2.4 H 2.5 H CK-MB (CK-2) (0.5 - 5.0 ng/mL) 2.71 2.01 Troponin I (0.012 - 0.033 ng/mL) 0.118 H 0.115 H Radiology data: Recent Impressions: CAT SCAN - CT ABD PELVIS W/O CONT 06/21 547 Report Impression - Status: SIGNED Entered: 06/21/2020 0704 IMPRESSION: No free fluid in the abdomen or pelvis to sugges t stent graft leakage or rupture. Unchanged appearance of the thoracoabdominal aor tic stent graft and the right external iliac stent graft. Impression By: Ramesh Spears CAT SCAN - CT HEAD/BRAIN W/O CONT 06/21 547 Report Impression - Status: SIGNED Entered: 06/21/2020 0652 IMPRESSION: No acute intracranial hemorrhage. Mild chronic microvascular ischemic injuries. Faint calcifications in the bilateral basal gang brown, essentially unchanged since 05/16/2015. Impression By: Ramesh Spears Diagnosis, Assessment Plan Free Text DxA P Notes Free Text DxA P Notes: ASSESSMENT AND PLAN: The patient is a 34-year-ol d gentleman with multiple medical problems, most notably hypertensive rommel gency. 1. Currently hypertensive urgency. - top the esmlol and nicardipine - resume bp meds 2. Type B dissection, status post TAVR, we will continue to monitor. 3. Chronic diastolic heart failure, intermitten t IV Lasix. 4. Chronic kidney disease, stage at least III, p robably secondary to his significant blood pressure issues. We wi ll continue to monitor. He is making a fairly good urine. 5. Non complaince with medication and treatemnt 6. AMS - per primary team - ct head repeat Electronically Signed by Abhi Ortiz DO on 06/21 at 0936 RPT #:[id number] END OF REPORT 2020-06-21 09:32:00-00:[address] [facility] ([facility]) Cardiology Progress Note REPORT#:[id number] REPORT STATUS: Signed DATE:06/21/20 TIME: 09 PATIENT: JORGE GOINS UNIT #: [id number] [address] AGE: 34 SEX: M ATTEND: Luis M Olmedo MD ADM AUTHOR: Ortiz,Abhi DO * ALL edits or amendments must be made on the rimidi/computer document * See Addendum Subjective Free Text Subj Notes Free Text Subj Notes: ams last night/ this am. Objective General VS/I O: 24 hour I O ending at 0700: 06/21 0700 06/20 1900 Intake Total 3046.00 Output Total Balance 3046.00 Intake, IV 3046.00 Number 0 Bowel Movements Number 1 Incontinent Voids Vital Signs: Date Time Temp Pulse Resp B/P B/P Pulse O2 O2 F low FiO2 Mean Ox Delivery Rate 06/21 0700 71 26 124/70 91 100 06/21 0645 71 27 130/72 94 100 06/21 0630 72 30 131/77 94 100 06/21 0615 71 20 130/71 92 100 06/21 0607 71 34 115/72 87 100 06/21 0600 71 100 06/21 0544 70 100 06/21 0530 69 100 06/21 0523 78 100 100 06/21 0515 73 27 100 06/21 0500 69 40 100 06/21 0445 69 31 100 06/21 0430 69 30 100 06/21 0415 71 28 100 06/21 0409 71 36 126/74 95 100 06/21 0400 69 24 100 06/21 0400 91.4 71 25 107/73 84 100 BiPAP 35 06/21 0345 60 10 100 06/21 0330 57 9 100 06/21 0315 64 13 100 06/21 0300 68 19 100 06/21 0245 72 23 99 06/21 0240 71 21 85/61 68 100 06/21 0235 69 21 84/58 66 100 06/21 0231 69 21 77/56 62 100 06/21 0230 69 17 99 06/21 0225 71 17 81/58 65 100 06/21 0225 78 100 35 06/21 0221 75 22 93/57 70 96 06/21 0215 75 23 95/61 74 99 06/21 0213 104/65 76 06/21 0200 64 15 70/53 58 97 06/21 0158 64 9 74/51 58 96 06/21 0151 68 11 74/49 57 100 06/21 0145 74 16 100 06/21 0137 80 22 84/50 61 100 06/21 0135 80 23 81/54 61 90 06/21 0131 82 27 84/51 59 99 06/21 0130 82 25 96 06/21 0121 79 25 98/66 77 100 06/21 0119 77 26 87/60 68 99 06/21 0116 75 22 84/50 63 99 06/21 0115 74 21 99 06/21 0101 68 12 93/47 67 99 06/21 0100 69 12 99 06/21 0046 78 23 108/62 78 100 06/21 0045 79 21 99 06/21 0044 79 22 107/59 76 99 06/21 0030 81 26 87/63 71 99 06/21 0015 81 22 99/68 79 100 06/21 0000 80 31 96/62 73 98 06/21 0000 93.9 72 16 108/62 77 99 Room air 06/20 2345 79 16 94/62 73 100 06/20 2331 79 15 97/63 73 98 06/20 2330 79 36 97 06/20 2315 78 31 91/66 75 97 06/20 2300 77 28 95/66 75 95 06/20 2245 74 16 102/67 80 100 06/20 2230 71 24 95/62 74 100 06/20 2215 70 34 93/60 72 98 06/20 2200 71 24 97/59 72 98 06/20 2151 71 27 89/61 70 100 06/20 2145 70 30 89/60 71 100 06/20 2130 71 30 96/62 74 100 06/20 2115 71 30 93/62 72 100 06/20 2100 69 29 94/62 72 100 06/20 2045 70 35 95/59 73 99 06/20 2031 71 28 101/58 75 100 06/20 2030 71 31 100 06/20 2016 72 32 103/65 79 97 06/20 2015 72 28 97 06/20 2000 91.8 72 25 106/71 82 99 Room air 06/20 2000 72 25 106/71 83 99 06/20 1945 73 27 103/72 83 98 06/20 1931 74 24 104/73 84 98 06/20 1930 74 28 98 06/20 1915 75 27 100/67 79 99 06/20 1900 76 29 98/67 78 100 06/20 1706 80 26 99 06/20 1700 80 27 98 06/20 1645 80 31 99 06/20 1632 81 94/72 80 96 06/20 1630 81 99 06/20 1615 83 28 94 06/20 1606 82 25 104/55 72 94 06/20 1600 82 37 96/57 69 95 06/20 1556 81 31 100/50 70 100 06/20 1551 81 30 95/63 73 99 06/20 1546 80 34 91/72 77 98 06/20 1545 79 37 99 06/20 1541 79 25 100/55 71 97 06/20 1535 77 26 108/70 83 100 06/20 1530 76 31 103/65 80 100 06/20 1525 77 27 102/71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 Skin: abnormal color, abnormal temperature Lymphatics: neck normal, no lymphadenopathy Results Findings/Data: Laboratory Tests 06/21/20 1440: [Embedded Image Not Available] 06/21/20 0841: [Embedded Image Not Available] 06/21/20 0841: [Embedded Image Not Available] 06/21/20 0244: [Embedded Image Not Available] 06/21/20 0244: [Embedded Image Not Available] Laboratory Tests 06/21 06/21 1348 0215 Blood Gas Puncture Site Art Line R Radial ABG pH (7.35 - 7.45 pH units) 7.28 *L 7.36 ABG pCO2 (35 - 48 mmHg) 42.7 18.7 *L ABG pO2 (83 - 108 mmHg) 516.7 H 258.6 H ABG PO2/FiO2 Ratio (mm/Hg) 516.70 258.60 ABG HCO3 (21 - 28 mmol/L) 19.9 L 10.7 L ABG Total CO2 (22 - 29 mmol/L) 20.3 L 11.2 L ABG O2 Sat Calc/Denise (94 - 98 %) 100.0 H 99.9 H ABG Base Excess (-2 - 3 mmol/L) -6.6 L -12.6 L Emmanuel Test N/A Positive Sodium (138 - 146 mmol/L) 134 L 131 L Potassium (3.5 - 4.5 mmol/L) 5.7 H 5.7 H Ionized Calcium (1.15 - 1.33 MMOL/L) 0.93 L 1.0 3 L Respiration Rate (12 - 20 /MIN) 20 O2 Delivery Device Adult Vent Bagging Vent Mode ASSIST CONTROL FiO2 (%) 100 100 Instrument (Specimen Descript) Arterial Arteria l Laboratory Tests 06/21 1440 1440 1148 Chemistry Sodium (137 - 145 mmol/L) 137 Potassium (3.4 - 5.0 mmol/L) 4.8 Chloride (98 - 107 mmol/L) 101 Carbon Dioxide (22 - 30 mmol/L) 12 L BUN (9 - 20 mg/dL) 62 H Creatinine (0.7 - 1.3 mg/dL) 2.9 H Glomerular Filtr Rate (>60) 32 L Glucose (74 - 106 mg/dL) 296 H Lactic Acid (0.7 - 2.0 mmol/L) 6.2 *H 11.2 *H 9 .6 *H Calcium (8.4 - 10.2 mg/dL) 7.5 L Troponin I (0.012 - 0.033 ng/mL) 0.333 *H 0.206 *H 06/21 06/21 06/21 06/21 06/21 0913 0841 0841 0841 0841 Chemistry Sodium (137 - 145 mmol/L) 135 L Potassium (3.4 - 5.0 mmol/L) 4.4 Chloride (98 - 107 mmol/L) 104 Carbon Dioxide (22 - 30 mmol/L) 14 L BUN (9 - 20 mg/dL) 64 H Creatinine (0.7 - 1.3 mg/dL) 2.7 H Glomerular Filtr Rate (>60) 35 L Glucose (74 - 106 mg/dL) 125 H Lactic Acid (0.7 - 2.0 mmol/L) 4.9 *H Calcium (8.4 - 10.2 mg/dL) 8.4 Magnesium (1.6 - 2.3 mg/dL) 2.4 H Total Bilirubin (0.2 - 1.3 mg/dL) 1.3 Conjugated Bilirubin (0 - 0.3 mg/dL) 0 Unconjugated Bilirubin (0 - 1.1 mg/dL) 0.4 AST (15 - 46 U/L) 332 H ALT (0 - 34 U/L) 198 H Total Alk Phosphatase (38 - 126 U/L) 89 Ammonia (9 - 30 umol/L) 15 CK-MB (CK-2) (0.5 - 5.0 ng/mL) 2.71 Troponin I (0.012 - 0.033 ng/mL) 0.118 H Total Protein (6.3 - 8.2 g/dL) 6.1 L Albumin (3.5 - 5.0 g/dL) 2.9 L 06/21 06/21 06/21 06/21 06/21 0839 0401 0342 0244 0244 Chemistry Sodium (137 - 145 mmol/L) 132 L Potassium (3.4 - 5.0 mmol/L) 5.8 H Chloride (98 - 107 mmol/L) 102 Carbon Dioxide (22 - 30 mmol/L) 8 *L BUN (9 - 20 mg/dL) 57 H Creatinine (0.7 - 1.3 mg/dL) 2.8 H Glomerular Filtr Rate (>60) 34 L Glucose (74 - 106 mg/dL) 89 POC Glucose (74 - 106 MG/DL) 134 H Lactic Acid (0.7 - 2.0 mmol/L) 8.5 *H Calcium (8.4 - 10.2 mg/dL) 8.0 L Magnesium (1.6 - 2.3 mg/dL) 2.5 H CK-MB (CK-2) (0.5 - 5.0 ng/mL) 2.01 Troponin I (0.012 - 0.033 ng/mL) 0.115 H Vitamin B12 (239 - 931 pg/mL) 732 TSH (0.465 - 4.68 MIU/L) 7.590 H Free T4 (0.78 - 2.19 ng/dL) 1.70 06/21 06/21 06/21 0244 0215 0113 Chemistry POC Glucose (74 - 100 mg/dL) 89 113 H Ammonia (9 - 30 umol/L) 45 *H Laboratory Tests 06/21 0244 Coagulation INR 2.0 PT Patient/Control Mix (9.2 - 12.1 SECONDS) 22. 8 H Laboratory Tests 06/21 06/21 06/21 1440 0841 0244 Hematology WBC (5.0 - 12.0 x10 3/uL) 19.0 H 17.0 H 16.5 H RBC (4.70 - 6.10 x10 6/uL) 3.78 L 3.86 L 3.68 L Hgb (14.0 - 18.0 g/dL) 11.2 L 11.4 L 10.7 L Hct (37.0 - 49.0 %) 35.6 L 34.9 L 34.7 L MCV (80 - 94 fL) 94 90 94 MCH (27 - 31 pg) 29.6 29.5 29.1 MCHC (33 - 37 g/dL) 31.5 L 32.7 L 30.8 L RDW (11.5 - 15.5 %) 16.0 H 15.9 H 15.9 H Plt Count (130 - 400 x10 3/uL) 352 339 347 MPV (9.4 - 16.4 fL) 10.6 10.4 10.6 Neut % (Auto) (43 - 65 %) 83.6 H 87.6 H 88.4 H Lymph % (Auto) (20.5 - 45.5 %) 11.2 L 7.0 L 6.9 L Citrus % (Auto) (5.5 - 11.7 %) 3.4 L 4.5 L 3.8 L Eos % (Auto) (0.9 - 2.9 %) 0.0 L 0.0 L 0.0 L Baso % (Auto) (0.2 - 1.0 %) 0.2 0.1 L 0.1 L Neut # (Auto) (2.2 - 4.8 x10 3/uL) 15.91 H 14.8 3 H 14.54 H Lymph # (Auto) (1.3 - 2.9 x10 3/uL) 2.12 1.19 L 1.14 L Citrus # (Auto) (0.3 - 0.8 x10 3/uL) 0.64 0.77 0. 63 Eos # (Auto) (0.0 - 0.2 x10 3/uL) 0.00 0.00 0.0 0 Baso # (Auto) (0.0 - 0.1 x10 3/uL) 0.03 0.02 0. 02 Immature Gran % (0.0 - 2.0 %) 1.6 0.8 0.8 Nucleated RBC % (0 - 1.0 %) 0.5 0.2 0.3 Laboratory Tests 06/21 2035 Toxicology Urine Opiates Screen (NEGATIVE) POSITIVE H Ur Barbiturates, Qual (NEGATIVE) POSITIVE H Ur Phencyclidine Scrn (NEGATIVE) NEGATIVE Ur Amphetamines Screen (NEGATIVE) NEGATIVE U Benzodiazepines Scrn (NEGATIVE) NEGATIVE Urine Cocaine Screen (NEGATIVE) NEGATIVE Urine Cannabinoids (NEGATIVE) NEGATIVE Microbiology: 06/21 1006 BLOOD: Blood Culture - RES 06/21 1006 BLOOD: Blood Culture - RES 06/19 1534 NASAL: MRSA Screen - COMP 06/19 0425 BLOOD: Blood Culture - RES 06/19 0425 BLOOD: Blood Culture - RES Radiology data Recent Impressions: CAT SCAN - CT ABD PELVIS W/O CONT 06/21 0547 Report Impression - Status: SIGNED Entered: 06/21/2020 0704 IMPRESSION: No free fluid in the abdomen or pelvis to sugges t stent graft leakage or rupture. Unchanged appearance of the thoracoabdominal aor tic stent graft and the right external iliac stent graft. Impression By: Ramesh Spears CAT SCAN - CT HEAD/BRAIN W/O CONT 06/21 0547 Report Impression - Status: SIGNED Entered: 06/21/2020 0652 IMPRESSION: No acute intracranial hemorrhage. Mild chronic microvascular ischemic injuries. Faint calcifications in the bilateral basal gang brown, essentially unchanged since 05/16/2015. Impression By: Ramesh Spears RADIOLOGY - XR CHEST 1 V 06/21 1140 Report Impression - Status: SIGNED Entered: 06/21/2020 1203 IMPRESSION: 1. Endotracheal tube in satisfactory position. 2. Slight increase bilateral infiltrates. Impression By: Leyda Carcamoriott DO CAT SCAN - CT ANGIO CHEST 06/21 6819 Report Impression - Status: SIGNED Entered: 06/21/2020 1486 IMPRESSION: 1. 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 There is no active extravasation of contrast or periaortic hematoma . There continues to be contrast enhancement posterior to the stent b ut within the original lumen of the abdominal aorta in the excluded por tion of the abdominal aorta. 2. Development of distended fluid-filled loops o f small bowel concerning for obstruction measuring up to 4.3 c m in size with questionable area of increased density in a prox imal loop of small bowel just the left of midline which could relat e to ingested material. If there is decreasing hemoglobin or h ematocrit, small bowel intestinal bleed is not excluded. 3. Right basilar pulmonary opacities with patchy bilateral pulmonary opacities is similar to prior exam concerning fo r bilateral pneumonia. Edema is not excluded given the cardiomegaly an d reflux of contrast into the inferior vena cava. 4. Inflammatory change surrounding the kidneys i s now present. Please correlate for acute renal insufficiency. 5. Other findings as above. Dr. Vargas called these findings to Dr. Kleber Newby on 06/21/2020 3:12 PM Impression By: [email or web address] - Erick Vargas MD CAT SCAN - CTA ABD PEL W CONT 06/21 5110 Report Impression - Status: SIGNED Entered: 06/21/2020 6256 IMPRESSION: 1. 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 There is no active extravasation of contrast or periaortic hematoma . There continues to be contrast enhancement posterior to the stent b ut within the original lumen of the abdominal aorta in the excluded por tion of the abdominal aorta. 2. Development of distended fluid-filled loops o f small bowel concerning for obstruction measuring up to 4.3 c m in size with questionable area of increased density in a prox imal loop of small bowel just the left of midline which could relat e to ingested material. If there is decreasing hemoglobin or h ematocrit, small bowel intestinal bleed is not excluded. 3. Right basilar pulmonary opacities with patchy bilateral pulmonary opacities is similar to prior exam concerning fo r bilateral pneumonia. Edema is not excluded given the cardiomegaly an d reflux of contrast into the inferior vena cava. 4. Inflammatory change surrounding the kidneys i s now present. Please correlate for acute renal insufficiency. 5. Other findings as above. Dr. Vargas called these findings to Dr. Kleber Newby on 06/21/2020 3:12 PM Impression By: Carmen Vargas MD RADIOLOGY - XR CHEST 1 V 06/21 1545 Report Impression - Status: SIGNED Entered: 06/21/2020 1601 IMPRESSION: As above. Impression By: Carmen Vargas MD RADIOLOGY - XR CHEST 1 V 06/21 1725 Report Impression - Status: SIGNED Entered: 06/21/2020 1745 IMPRESSION: Interval placement of right-sided central venous catheters, with the tips projecting over the superior vena cava. Interval placement of NG tube, with the distal p ortion coursing to the left abdomen. Unchanged ET tube. Impression By: Ramesh - Fátima Spears Diagnosis, Assessment Plan Free text A P: 34 year old male with history of aortic dissecti on s/p EVAR came in for hypertensive urgency #AMS - 2/2 ativan vs hypertensive encephalopathy - cont to monitor. - improving complaining of headache #CVS - h/o EVAR for aortic dissection and h/o endolea k in the past - seen by Dr. Ramires's group last admission. Dr. Wallace larsen consulted - given picture of hypertensive urgency , will s tart Esmolol and Cardene drip with SBP goal < 120 - pending Cardio consult #HTN - on esomolol and cardene - patient is medication non-compliance - resume home med - headache => tylenol PRN #COVID - pending PCR - CT chest b/l infiltrates at the bases - not hypoxic . will watch for now gi ppx: pepcid dvt ppx: heparin PLAN: - D/w Dr. Odin Shahid. WHo recommend A-line and F Oley but patient refused intervention. Cont to monitor for now Electronically Signed by Wilfred Pereira MD R2 on 1 08/22/19 at 5533 RPT #:[id number] END OF REPORT 2020-06-20 18:53:00-00:[address] [facility] ([facility] [facility]) Critical Care Progress Note REPORT#:[id number] REPORT STATUS: Signed DATE:06/20/20 TIME: 1852 PATIENT: JORGE GOINS UNIT #: [id number] ROOM/BED: [address] : 86 AGE: 34 SEX: M ATTEND: Luis M Olmedo MD ADM AUTHOR: Wilfred Pereira MD R2 * ALL edits or amendments must be made on the rimidi/computer document * Wilfred Pereira 06/20/201852: Subjective HPI: BP now is better control Pt is AOx4 . refused A line and Zuñiga Objective General VS/I O Last Documented: Result Date Time Temp 36.4 06/21 2000 Pulse Ox 98 06/21 184 Pulse 85 06/21 1843 Resp 4 06/21 1843 B/P 109/79 06/21 1830 B/P Mean 90 06/21 1830 FiO2 100 06/21 0523 O2 Delivery BiPAP 06/21 0400 O2 Flow Rate 3 06/20 0926 24 hour I O ending at 0700: 06/21 0700 06/20 1900 Intake Total 3046.00 Output Total Balance 3046.00 Intake, IV 3046.00 Number 0 Bowel Movements Number 1 Incontinent Voids PATIENT WEIGHT: Weight (lb): 198 Weight (oz): 3.13 Weight (kg): 89.900 Medications: Active Meds + DC'd Last 24 Hrs Dextrose/Water 25 ML ASDIR PRN IV Glucagon 1 MG ASDIR PRN IM Insulin Human Lispro LOW DOSE SCALE ASDIR SUBQ Sterile Water 1 ML ASDIR PRN IM Propofol 100 ML TITRATE IV (CKD) Midazolam HCl 100 ML TITRATE IV (CKD) Propofol 100 MG ONCE ONE IV (CAN) Epinephrine 8 MG TITRATE IV (CKD) Sodium Chloride 242 ML Norepinephrine Bitartrate 16 MG TITRATE IV Sodium Chloride 234 ML Perflutren Lipid Microsphere DIRECTED ONCE PRN IV Sodium Chloride DIRECTED ONCE PRN IV Sodium Chloride 5 ML ONCE PRN IV Diphenhydramine HCl 50 MG ONCE@1400 IV (DC) Sodium Chloride 1,000 ML BOLUS ONCE ONE IV (DC) Fentanyl Citrate 0 .STK-MED ONE .ROUTE (DC) Epinephrine HCl 254 ML TITRATE IV (DC) Epinephrine HCl 254 ML TITRATE IV (DC) Dextrose/Water 0 .STK-MED ONE .ROUTE (DC) Fentanyl Citrate 50 ML TITRATE IV (CKD) Propofol 100 ML .Q24H ONE IV (CKD) Azithromycin 500 MG DAILY IV Sodium Chloride 250 ML Losartan Potassium 50 MG Q12H PO (DC) Calcium Gluconate/Sodium Chloride 50 ML ONCE ONE IV (DC) Dextrose/Water 50 ML ONCE ONE IV (DC) Insulin Human Regular 10 UNIT ONCE ONE IV (DC) Sodium Bicarbonate 50 MEQ ONCE ONE IV (DC) Sodium Bicarbonate 100 MEQ ONCE ONE IV (DC) Norepinephrine Bitartrate 254 ML .STK-MED ONE IV (DC) Norepinephrine Bitartrate 254 ML TITRATE IV (DC) Norepinephrine Bitartrate 254 ML .STK-MED ONE IV (DC) Cefepime HCl 1 GM Q12HR IV Sterile Water 10 ML Sodium Chloride 2,697 ML ONCE ONE IV (DC) Lorazepam 1 MG Q8H PRN PRN IM (DC) Famotidine 20 MG DAILY PO Hydrochlorothiazide 25 MG DAILY PO (DC) Losartan Potassium 100 MG DAILY PO (DC) Morphine Sulfate 2 MG Q4H PRN PRN IV Sodium Chloride 1,000 ML .Q10H IV (DC) Heparin Sodium (Porcine) 5,000 UNIT Q12HR SUBQ Mupirocin 1 APPLIC BID NASAL Nifedipine 90 MG Q12HR PO (DC) Hydrocodone Bitart/Acetaminophen 1 TAB Q6H PRN P RN PO Carvedilol 25 MG BID MEALS PO (DA) Esmolol HCl 250 ML TITRATE IV (CKD) Nicardipine HCl 250 ML TITRATE IV Physical Exam General appearance: alert, awake, oriented Cardiovascular: normal heart sounds, normal S1 S 2, normal rate and rhythm Respiratory/Chest: aerating well, clear to auscu ltation, symmetric expansion Abdomen: soft, non-tender Extremities: moves all, normal temperature 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, oriented X 3 Skin: abnormal color, abnormal temperature Lymphatics: neck normal, no lymphadenopathy Results Findings/Data: Laboratory Tests 06/21/20 1440: [Embedded Image Not Available] 06/21/20 0841: [Embedded Image Not Available] 06/21/20 0841: [Embedded Image Not Available] 06/21/20 0244: [Embedded Image Not Available] 06/21/20 0244: [Embedded Image Not Available] Laboratory Tests 06/21 06/21 1348 0215 Blood Gas Puncture Site Art Line R Radial ABG pH (7.35 - 7.45 pH units) 7.28 *L 7.36 ABG pCO2 (35 - 48 mmHg) 42.7 18.7 *L ABG pO2 (83 - 108 mmHg) 516.7 H 258.6 H ABG PO2/FiO2 Ratio (mm/Hg) 516.70 258.60 ABG HCO3 (21 - 28 mmol/L) 19.9 L 10.7 L ABG Total CO2 (22 - 29 mmol/L) 20.3 L 11.2 L ABG O2 Sat Calc/Denise (94 - 98 %) 100.0 H 99.9 H ABG Base Excess (-2 - 3 mmol/L) -6.6 L -12.6 L Emmanuel Test N/A Positive Sodium (138 - 146 mmol/L) 134 L 131 L Potassium (3.5 - 4.5 mmol/L) 5.7 H 5.7 H Ionized Calcium (1.15 - 1.33 MMOL/L) 0.93 L 1.0 3 L Respiration Rate (12 - 20 /MIN) 20 O2 Delivery Device Adult Vent Bagging Vent Mode ASSIST CONTROL FiO2 (%) 100 100 Instrument (Specimen Descript) Arterial Arteria l Laboratory Tests 06/21 1440 1440 1148 Chemistry Sodium (137 - 145 mmol/L) 137 Potassium (3.4 - 5.0 mmol/L) 4.8 Chloride (98 - 107 mmol/L) 101 Carbon Dioxide (22 - 30 mmol/L) 12 L BUN (9 - 20 mg/dL) 62 H Creatinine (0.7 - 1.3 mg/dL) 2.9 H Glomerular Filtr Rate (>60) 32 L Glucose (74 - 106 mg/dL) 296 H Lactic Acid (0.7 - 2.0 mmol/L) 6.2 *H 11.2 *H 9 .6 *H Calcium (8.4 - 10.2 mg/dL) 7.5 L Troponin I (0.012 - 0.033 ng/mL) 0.333 *H 0.206 *H 06/21 06/21 06/21 06/21 06/21 0913 0841 0841 0841 0841 Chemistry Sodium (137 - 145 mmol/L) 135 L Potassium (3.4 - 5.0 mmol/L) 4.4 Chloride (98 - 107 mmol/L) 104 Carbon Dioxide (22 - 30 mmol/L) 14 L BUN (9 - 20 mg/dL) 64 H Creatinine (0.7 - 1.3 mg/dL) 2.7 H Glomerular Filtr Rate (>60) 35 L Glucose (74 - 106 mg/dL) 125 H Lactic Acid (0.7 - 2.0 mmol/L) 4.9 *H Calcium (8.4 - 10.2 mg/dL) 8.4 Magnesium (1.6 - 2.3 mg/dL) 2.4 H Total Bilirubin (0.2 - 1.3 mg/dL) 1.3 Conjugated Bilirubin (0 - 0.3 mg/dL) 0 Unconjugated Bilirubin (0 - 1.1 mg/dL) 0.4 AST (15 - 46 U/L) 332 H ALT (0 - 34 U/L) 198 H Total Alk Phosphatase (38 - 126 U/L) 89 Ammonia (9 - 30 umol/L) 15 CK-MB (CK-2) (0.5 - 5.0 ng/mL) 2.71 Troponin I (0.012 - 0.033 ng/mL) 0.118 H Total Protein (6.3 - 8.2 g/dL) 6.1 L Albumin (3.5 - 5.0 g/dL) 2.9 L 06/21 06/21 06/21 06/21 06/21 0839 0401 0342 0244 0244 Chemistry Sodium (137 - 145 mmol/L) 132 L Potassium (3.4 - 5.0 mmol/L) 5.8 H Chloride (98 - 107 mmol/L) 102 Carbon Dioxide (22 - 30 mmol/L) 8 *L BUN (9 - 20 mg/dL) 57 H Creatinine (0.7 - 1.3 mg/dL) 2.8 H Glomerular Filtr Rate (>60) 34 L Glucose (74 - 106 mg/dL) 89 POC Glucose (74 - 106 MG/DL) 134 H Lactic Acid (0.7 - 2.0 mmol/L) 8.5 *H Calcium (8.4 - 10.2 mg/dL) 8.0 L Magnesium (1.6 - 2.3 mg/dL) 2.5 H CK-MB (CK-2) (0.5 - 5.0 ng/mL) 2.01 Troponin I (0.012 - 0.033 ng/mL) 0.115 H Vitamin B12 (239 - 931 pg/mL) 732 TSH (0.465 - 4.68 MIU/L) 7.590 H Free T4 (0.78 - 2.19 ng/dL) 1.70 06/21 06/21 06/21 0244 0215 0113 Chemistry POC Glucose (74 - 100 mg/dL) 89 113 H Ammonia (9 - 30 umol/L) 45 *H Laboratory Tests 06/21 0244 Coagulation INR 2.0 PT Patient/Control Mix (9.2 - 12.1 SECONDS) 22. 8 H Laboratory Tests 06/21 06/21 06/21 1440 0841 0244 Hematology WBC (5.0 - 12.0 x10 3/uL) 19.0 H 17.0 H 16.5 H RBC (4.70 - 6.10 x10 6/uL) 3.78 L 3.86 L 3.68 L Hgb (14.0 - 18.0 g/dL) 11.2 L 11.4 L 10.7 L Hct (37.0 - 49.0 %) 35.6 L 34.9 L 34.7 L MCV (80 - 94 fL) 94 90 94 MCH (27 - 31 pg) 29.6 29.5 29.1 MCHC (33 - 37 g/dL) 31.5 L 32.7 L 30.8 L RDW (11.5 - 15.5 %) 16.0 H 15.9 H 15.9 H Plt Count (130 - 400 x10 3/uL) 352 339 347 MPV (9.4 - 16.4 fL) 10.6 10.4 10.6 Neut % (Auto) (43 - 65 %) 83.6 H 87.6 H 88.4 H Lymph % (Auto) (20.5 - 45.5 %) 11.2 L 7.0 L 6.9 L Citrus % (Auto) (5.5 - 11.7 %) 3.4 L 4.5 L 3.8 L Eos % (Auto) (0.9 - 2.9 %) 0.0 L 0.0 L 0.0 L Baso % (Auto) (0.2 - 1.0 %) 0.2 0.1 L 0.1 L Neut # (Auto) (2.2 - 4.8 x10 3/uL) 15.91 H 14.8 3 H 14.54 H Lymph # (Auto) (1.3 - 2.9 x10 3/uL) 2.12 1.19 L 1.14 L Citrus # (Auto) (0.3 - 0.8 x10 3/uL) 0.64 0.77 0. 63 Eos # (Auto) (0.0 - 0.2 x10 3/uL) 0.00 0.00 0.0 0 Baso # (Auto) (0.0 - 0.1 x10 3/uL) 0.03 0.02 0. 02 Immature Gran % (0.0 - 2.0 %) 1.6 0.8 0.8 Nucleated RBC % (0 - 1.0 %) 0.5 0.2 0.3 Laboratory Tests 06/21 2035 Toxicology Urine Opiates Screen (NEGATIVE) POSITIVE H Ur Barbiturates, Qual (NEGATIVE) POSITIVE H Ur Phencyclidine Scrn (NEGATIVE) NEGATIVE Ur Amphetamines Screen (NEGATIVE) NEGATIVE U Benzodiazepines Scrn (NEGATIVE) NEGATIVE Urine Cocaine Screen (NEGATIVE) NEGATIVE Urine Cannabinoids (NEGATIVE) NEGATIVE Microbiology: 06/21 1006 BLOOD: Blood Culture - RES 06/21 1006 BLOOD: Blood Culture - RES 06/19 1534 NASAL: MRSA Screen - COMP 06/19 0425 BLOOD: Blood Culture - RES 06/19 0425 BLOOD: Blood Culture - RES Radiology data Recent Impressions: CAT SCAN - CT ABD PELVIS W/O CONT 06/21 0547 Report Impression - Status: SIGNED Entered: 06/21/2020 0704 IMPRESSION: No free fluid in the abdomen or pelvis to sugges t stent graft leakage or rupture. Unchanged appearance of the thoracoabdominal aor tic stent graft and the right external iliac stent graft. Impression By: Ramesh Spears CAT SCAN - CT HEAD/BRAIN W/O CONT 06/21 0547 Report Impression - Status: SIGNED Entered: 06/21/2020 0652 IMPRESSION: No acute intracranial hemorrhage. Mild chronic microvascular ischemic injuries. Faint calcifications in the bilateral basal gang brown, essentially unchanged since 05/16/2015. Impression By: Ramesh - Fátima Alicemartine Spears RADIOLOGY - XR CHEST 1 V 06/21 1140 Report Impression - Status: SIGNED Entered: 06/21/2020 1203 IMPRESSION: 1. Endotracheal tube in satisfactory position. 2. Slight increase bilateral infiltrates. Impression By: Leyda - Nish Muriel DO CAT SCAN - CT ANGIO CHEST 06/21 145 Report Impression - Status: SIGNED Entered: 06/21/2020 1516 IMPRESSION: 1. 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 There is no active extravasation of contrast or periaortic hematoma . There continues to be contrast enhancement posterior to the stent b ut within the original lumen of the abdominal aorta in the excluded por tion of the abdominal aorta. 2. Development of distended fluid-filled loops o f small bowel concerning for obstruction measuring up to 4.3 c m in size with questionable area of increased density in a prox imal loop of small bowel just the left of midline which could relat e to ingested material. If there is decreasing hemoglobin or h ematocrit, small bowel intestinal bleed is not excluded. 3. Right basilar pulmonary opacities with patchy bilateral pulmonary opacities is similar to prior exam concerning fo r bilateral pneumonia. Edema is not excluded given the cardiomegaly an d reflux of contrast into the inferior vena cava. 4. Inflammatory change surrounding the kidneys i s now present. Please correlate for acute renal insufficiency. 5. Other findings as above. Dr. Vargas called these findings to Dr. Kleber Newby on 06/21/2020 3:12 PM Impression By: [email or web address] - Erick Vargas MD CAT SCAN - CTA ABD PEL W CONT 06/21 851 Report Impression - Status: SIGNED Entered: 06/21/2020 7895 IMPRESSION: 1. 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 There is no active extravasation of contrast or periaortic hematoma . There continues to be contrast enhancement posterior to the stent b ut within the original lumen of the abdominal aorta in the excluded por tion of the abdominal aorta. 2. Development of distended fluid-filled loops o f small bowel concerning for obstruction measuring up to 4.3 c m in size with questionable area of increased density in a prox imal loop of small bowel just the left of midline which could relat e to ingested material. If there is decreasing hemoglobin or h ematocrit, small bowel intestinal bleed is not excluded. 3. Right basilar pulmonary opacities with patchy bilateral pulmonary opacities is similar to prior exam concerning fo r bilateral pneumonia. Edema is not excluded given the cardiomegaly an d reflux of contrast into the inferior vena cava. 4. Inflammatory change surrounding the kidneys i s now present. Please correlate for acute renal insufficiency. 5. Other findings as above. Dr. Vargas called these findings to Dr. Kleber eNwby on 06/21/2020 3:12 PM Impression By: Carmen Vargas MD RADIOLOGY - XR CHEST 1 V 06/21 1545 Report Impression - Status: SIGNED Entered: 06/21/2020 1601 IMPRESSION: As above. Impression By: Carmen Vargas MD RADIOLOGY - XR CHEST 1 V 06/21 1725 Report Impression - Status: SIGNED Entered: 06/21/2020 1745 IMPRESSION: Interval placement of right-sided central venous catheters, with the tips projecting over the superior vena cava. Interval placement of NG tube, with the distal p ortion coursing to the left abdomen. Unchanged ET tube. Impression By: Ramesh - Fátima Spears Diagnosis, Assessment Plan Free text A P: 34 year old male with history of aortic dissecti on s/p EVAR came in for hypertensive urgency #AMS - 2/2 ativan vs hypertensive encephalopathy - cont to monitor. - improving complaining of headache #CVS - h/o EVAR for aortic dissection and h/o endolea k in the past - seen by Dr. Ramires's group last admission. Dr. Wallace larsen consulted - given picture of hypertensive urgency , will s tart Esmolol and Cardene drip with SBP goal < 120 - pending Cardio consult #HTN - on esomolol and cardene - patient is medication non-compliance - resume home med - headache => tylenol PRN #COVID - pending PCR - CT chest b/l infiltrates at the bases - not hypoxic . will watch for now gi ppx: pepcid dvt ppx: heparin PLAN: - D/w Dr. Odin Shahid. WHo recommend A-line and F Oley but patient refused intervention. Cont to monitor for now Edy lOmedo 06/23/20 1537: Attestations Physician Attestation Agree w/findings plan: I have personally interviewed and examin ed the patient 06/20/2020. All charts, labs, and imaging studies were reviewed. I agree with the resident's findings, exam, and plan. Lungs are clear Patient refusing arterial li ne inspite of me personally requesting him. Refusing care as he deems. Hard to manage his serious med ical condition with his non- compliance. Continue blood pressure control CC time >40min. No procedure time included in th is time. Electronically Signed by Wilfred Pereira MD R2 on 1 08/22/19 at 2303 Electronically Signed by Edy Olmedo MD on at 1544 RPT #:[id number] END OF REPORT 2020-06-20 15:51:00-00:00 [facility]) Vascular Surgery Progress Note REPORT#:[id number] REPORT STATUS: Signed DATE:06/20/20 TIME: 1551 PATIENT: JORGE GOINS UNIT #: [id number] ROOM/BED: [place] [address]-A : 86 AGE: 34 SEX: M ATTEND: Luis M Olmedo MD ADM AUTHOR: Kleber Newby MD * ALL edits or amendments must be made on the rimidi/computer document * Subjective Chief Complaint: Pain all over HPI Patient is currently residing in the ICU and com plains of pain all over his body. Patient notes that his pain is still moderate to severe in nature without specific aggravating or alleviating factors. Rev iewing the vitals it appears that the patient had more improved pain control when he was dose pain medications. Patient did rec ently fall out of the chair immediately prior to my examination at which point h e was already on the floor when I arrived. The fall was witnessed by nursing and is being relayed to the primary team. Denies fevers chills nausea or vomiting. Objective General VS/I O Last Documented: Result Date Time Pulse Ox 100 06/20 926 FiO2 32 06/20 926 O2 Delivery Nasal cannula 06/20 926 O2 Flow Rate 3 06/20 926 Pulse 63 06/20 0651 Resp 19 06/20 0651 B/P 100/59 06/20 645 B/P Mean 76 06/20 645 Temp 97.8 06/20 0400 24 hour I O ending at 0700: 06/20 0700 06/19 1900 Intake Total 2781.50 Output Total 500 0 Balance 2281.50 0 Intake, IV 2781.50 Output, Urine 500 0 Patient 89.9 kg Weight Weight Bed scale Measurement Method PATIENT WEIGHT: Weight (lb): 198 Weight (oz): 3.13 Weight (kg): 89.900 General appearance: alert, awake, oriented HEENT: anicteric Neck: supple Cardiovascular: regular rate Respiratory: symmetric expansion Abdomen: soft, non-tender, no distention, no gua rding Extremities: moves all, palpable radial and dors diana pedis pulses bilaterally 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, no motor deficits Skin: no ecchymosis Psychiatry: normal mood Current Medications Medications: Active Meds + DC'd Last 24 Hrs Lorazepam 1 MG Q8H PRN PRN IM Famotidine 20 MG DAILY PO Hydrochlorothiazide 25 MG DAILY PO Losartan Potassium 100 MG DAILY PO Morphine Sulfate 2 MG Q4H PRN PRN IV Sodium Chloride 1,000 ML .Q10H IV Heparin Sodium (Porcine) 5,000 UNIT Q12HR SUBQ Mupirocin 1 APPLIC BID NASAL Nifedipine 90 MG Q12HR PO (CKD) Morphine Sulfate 2 MG ONCE ONE IV (DC) Hydrocodone Bitart/Acetaminophen 1 TAB Q6H PRN P RN PO Acetaminophen/Codeine Phosphate 1 TAB Q6H PRN ND N PO (DC) Carvedilol 25 MG BID MEALS PO Nicardipine HCl 125 MG TITRATE IV (CAN) Sodium Chloride 200 ML Amlodipine Besylate 10 MG DAILY PO (DC) Carvedilol 12.5 MG Q12HR PO (DC) Esmolol HCl 250 ML TITRATE IV (CKD) Nicardipine HCl 250 ML TITRATE IV Diagnosis, Assessment Plan Free Text A P: Patient is a 34-year-old male with history of ty pe B aortic dissection status post thoracic endovascular aortic repair at [facility] who presents with hypertensive urgency and chest and back easton n. Patient was admitted for impulse control goal blood p ressure less than 120 mmHg and heart rate goal of 60 bpm or less. Patient also noted to have an acute kidney injury with a creatinine on admission of 1.7 up from 1.2. Rosalia ent also has evidence of groundglass opacities on his CT scan concerning for Covid pneumonia and the patient is currently a Covid patient under inves tigation. Our recommendations are as follows: Impulse control with blood p ressure to be kept under 120 mmHg systolic and heart rate 60 bpm or less: Patient needs an arterial l ine now, d/w ICU resident in person Worsening JENNIFER: Nephrology consult today, eriberto jose for strict I/O Increase the patient scheduled pain medications to improve his pain control. Increased scheduled medications such as: tylenol 1 gm q6h scheduled tramadol 50 mg q6h scheduled oxycodone 5 mg PRN pain morphine 2 mg PRN pain Appreciate cardiology recommendations for blood pressure control The patient will likely benefit from additional thoracic endovascular aortic repair this coming week; however, patient needs to first be stabilized. Vascular surgery will continue to follow. The plan was discussed with the ICU resident in person as well as [employer]LL[employer] Kleber Newby MD [facility] Vascular Electronically Signed by Kleber Newby MD on 05/27 12/13 at 1600 RPT #:[id number] END OF REPORT 2020-06-19 23:38:00-00:00 [facility]) Vascular Surgery Consult Note REPORT#:[id number] REPORT STATUS: Signed DATE:06/19/20 TIME: 2337 PATIENT: JORGE GOINS UNIT #: [id number] ROOM/BED: [facility]-A : 86 AGE: 34 SEX: M ATTEND: Luis M Olmedo MD ADM AUTHOR: Kleber Newby MD * ALL edits or amendments must be made on the el [employer]/computer document * History of Present Illness Requesting Clinician: Edy Olmedo MD Reason for consult: Type B aortic dissection Chief complaint: Back pain HPI: The patient is a 34-year-old male with known history of type B aortic dissection status post thoracic endovas cular aortic repair at an outside hospital. We were first introduced to the rosalia ent in February 2020 when he underwent a CTA chest abdomen pelvis revealing evidence of previous th oracic endovascular aortic repair performed at an outside facility. At the time of the previous admission the patient was offered possible intervention gi dalton continued flow within his false lumen however he left before this could be provided. Since that time the patient has not followed up and now presents wit h hypertensive urgency with chest pain and back pain and underwent a new CTA revealing slight enlargement of his aorta. Patient has been admitted to the ICU with currently well-controlled blood pressure but is also noted to have an acut e kidney injury with a creatinine increased to 1.7 from 1.2 at his last admission. Patient also noted to have groundglass opacities on his CT scan concerning for possible Covid and the patient is currently a patient under investi gation. Patient notes that he is compliant with his blood pressure medications however his blood pressure was 226/162 on admission. At the time of admission the patient noted that his pain was 10 out of 10 and is now improved to 6 out of 10. He notes the pain is worse with coughing. History - Adult longitudinal Past medical history: Reports: Congestive heart failure, Hypertension. Additional medical history: type B dissection s/p TEVAR Past surgical history: Reports: Cholecystectomy. Additional surgical history: TEVAR Family history: Reports: Diabetes, Hypertension. Additional family history: Mother alive history of diabetes hypertension Father unknown Alcohol use: Denies EtOH use Drug use: Denies recreational drugs Smoking status for patients 13 years old or olde r: Unknown,if ever smoked Other social history: Unemployed, Local resident , Good social support Additional social history: single he works in [employer] he denies any alcoh ol use or tobacco use Medications: Home Medications: Medication Dose/Rte/Freq Days Qty Entered Last Max Daily Dose Reviewed ALBUTEROL 2 PUFF INH 05/08/19 06/19/20 (PROAIR HFA 90 MCG/ACT RTQ6H PRN PRN SOB 1945 1816 8.5 GM) Strength: 90 MCG INHALER ASPIRIN EC (ECOTRIN) 81 MG PO DAILY 30 30 05/1006/19/20 Strength: 81 MG TAB.EC 1128 1817 CARVEDILOL (COREG) 25 MG PO BID MEALS 30 60 06/19/20 Strength: 25 MG TAB 1224 1817 ACETAMINOPHEN/CODEINE 1 TAB PO 7 20 05/10/19 (TYLENOL WITH CODEINE Q6H PRN PRN PAIN 1224 181 7 #4 300/60 MG) Strength: 300 MG-60 MG TAB ATORVASTATIN (LIPITOR) 20 MG PO BEDTIME 30 30 0 11/23/19 06/19/20 Strength: 20 MG TAB 1620 1817 LOSARTAN (COZAAR) 100 MG PO DAILY 30 11/23/19 1 08/20/19 Strength: 50 MG TAB 1621 1817 NIFEdipine CC (ADALAT CC) 90 MG PO Q12HR 60 06/19/20 Strength: 90 MG TAB.SA 1621 1817 HYDROCHLOROTHIAZIDE 25 MG PO DAILY 30 11/23/19 06/19/20 (HYDRODIURIL) 1621 1817 Strength: 25 MG TAB Current Hospital Medications: Anti-Infective Agents Sig/Ronan Start time Last Medication Dose Route Stop Time Status Admin Ceftriaxone Sodium 1,000 MG X1ED STA 06/19 0421 DC 06/19 (ROCEPHIN) IV 06/19 0423 0434 Sterile Water 10 ML (WATER,STERILE ) Antihistamine Drugs Sig/Ronan Start time Last Medication Dose Route Stop Time Status Admin Diphenhydramine HCl 25 MG X1ED STA 06/19 0500 D C 06/19 (BENADRYL INJ) IV 06/19 0501 0503 Blood Formation,Coagulation Sig/Ronan Start time Last Medication Dose Route Stop Time Status Admin Heparin Sodium 5,000 UNIT Q12HR 06/19 2100 AC 1 08/20 (Porcine) SUBQ 07/19 (HEPARIN SODIUM) Cardiovascular Drugs Sig/Ronan Start time Last Medication Dose Route Stop Time Status Admin Losartan Potassium 100 MG DAILY 06/20 0900 AC (COZAAR) PO 07/20 0901 Nifedipine 90 MG Q12HR 06/19 2100 CKD 06/19 (PROCARDIA XL,ADALAT PO 07/19 2100 211 CC) Carvedilol 25 MG BID MEALS 06/19 1800 AC 06/19 (COREG) PO 07/19 1801 1737 Nicardipine HCl 125 MG TITRATE 06/19 1600 CAN (niCARdipine) IV 07/19 1601 Sodium Chloride 200 ML (SODIUM CHLORIDE 0.9%) Amlodipine Besylate 10 MG DAILY 06/19 900 DC (amLODIPine) PO 07/19 900 Carvedilol 12.5 MG Q12HR 06/19 900 DC (COREG) PO 07/19 900 Esmolol HCl 250 ML TITRATE 06/19 900 CKD 06/19 (BREVIBLOC 2500MG/ IV 07/19 900 2120 250ML 0.9% IV BAG) Nicardipine HCl 250 ML TITRATE 06/19 900 AC (NICARDIPINE 50MG/ IV 06/24 900 2315 250ML 0.9%NS) Labetalol HCl 10 MG X1ED STA 06/19 0709 DC 05/27 5 (TRANDATE, NORMODYNE) IV 06/19 0710 0757 Labetalol HCl 10 MG X1ED STA 06/19 0614 DC (TRANDATE, NORMODYNE) IV 06/19 0615 0627 Central Nervous System Agents Sig/Ronan Start time Last Medication Dose Route Stop Time Status Admin Morphine Sulfate 2 MG Q4H PRN PRN 06/195 AC (morphine) IV 06/24 2316 Morphine Sulfate 2 MG ONCE ONE 06/19 1945 DC (morphine) IV 06/19 1946 195 Hydrocodone Bitart/ 1 TAB Q6H PRN PRN 06/19 193 0 AC 06/19 Acetaminophen PO 06/24 (NORCO 7.5/325 TABLET) Acetaminophen/ 1 TAB Q6H PRN PRN 06/19 183 DC 06/19 Codeine Phosphate PO 06/24 183 1910 (TYLENOL #3) Lorazepam 1 MG X1ED STA 06/19 0708 DC 06/19 (ATIVAN) IV 06/19 0709 0756 Morphine Sulfate 4 MG X1ED STA 06/19 0551 DC (morphine) IV 06/19 0552 0557 Diagnostic Agents Sig/Ronan Start time Last Medication Dose Route Stop Time Status Admin Iopamidol 100 ML .STK-MED ONE 06/19 0532 DC (ISOVUE-370 100ML) IV 06/19 0533 0532 Electrolytic, Caloric, And Camila Sig/Ronan Start time Last Medication Dose Route Stop Time Status Admin Hydrochlorothiazide 25 MG DAILY 06/20 0900 AC (hydroCHLOROthiazide) PO 07/20 0901 Sodium Chloride 1,000 ML .Q10H 06/19 2315 AC (SODIUM CHLORIDE IV 06/22 1200 2316 0.9%) Sodium Chloride 5 ML Q12HR 06/19 0900 DC (SODIUM CHLORIDE IV 06/19 1346 FLUSH) Sodium Chloride 5 ML ASDIR PRN 06/19 0800 DC (SODIUM CHLORIDE IV 06/19 134 FLUSH) Sodium Chloride 10 ML ASDIR PRN 06/19 0800 DC (NACL 0.9%) IV 06/19 1346 Sodium Chloride 250 ML ASDIR PRN 06/19 0800 DC (SODIUM CHLORIDE IV 06/19 1346 0.9%) Gastrointestinal Drugs Sig/Ronan Start time Last Medication Dose Route Stop Time Status Admin Famotidine 20 MG DAILY 06/20 900 AC (PEPCID) PO 07/20 0901 Ondansetron HCl 4 MG Q4H PRN PRN 06/19 0747 DC (ZOFRAN 4 MG/2 ML IV 06/19 1346 INJ) Ondansetron HCl 4 MG X1ED STA 06/19 0455 DC (ZOFRAN 4 MG/2 ML IV 06/19 0456 0503 INJ) Hormones And Synthetic Substit Sig/Ronan Start time Last Medication Dose Route Stop Time Status Admin Methylprednisolone 125 MG X1ED STA 06/19 0500 D C 06/19 Sodium Succinate IV 06/19 0501 0504 (Solu-MEDROL) Skin And Mucous Membrane Agent Sig/Ronan Start time Last Medication Dose Route Stop Time Status Admin Mupirocin 1 APPLIC BID 06/19 2100 AC 06/19 (BACTROBAN 2% 22 GM NASAL 06/24 0901 2115 OINTMENT) Allergies: Coded Allergies: Iodine and Iodide Containing Produc (Severe, HIV ES 11/19/19) shellfish derived (Intermediate, RASH 11/19/19) Review of Systems Additional notes: Review of systems: General/ Constitutional: denies recent weight ga in or weight loss Eyes, vision: Denies change in vision Ears, nose, throat: Denies change in hearing Heart, cardiovascular: Positive for chest/back p ain Respiratory: Denies shortness of breath Gastrointestinal: Denies abdominal pain Genitourinary: Denies change in urination Musculoskeletal: Denies new onset joint pain Skin and integumentary: Denies rash Neurological: Denies new onset numbness or tingl ing Psychiatric: Denies nervousness Endocrine: Denies heat or cold intolerance Hematologic/ Lymphatic: Denies easy bleeding or bruising Allergy/immunologic: Denies recurrent infections Objective VS/I O: Last Documented: Result Date Time Pulse Ox 99 06/19 2247 Pulse 65 06/19 2247 Resp 27 06/19 2247 B/P 107/57 06/19 2245 B/P Mean 79 06/19 2245 O2 Delivery Nasal cannula 06/19 2000 O2 Flow Rate 2 06/19 2000 Temp 97.9 06/19 2000 24 hour I O ending at 0700: 06/19 0700 06/18 1900 Intake Total Output Total Balance Patient 88.636 kg Weight Weight Stated/Reported Measurement Method PATIENT WEIGHT: Weight (lb): 198 Weight (oz): 3.13 Weight (kg): 89.900 Findings/Data: Laboratory Tests 06/19 06/19 06/19 06/19 06/19 1913 1519 0439 0425 0425 Chemistry POC Glucose (74 - 106 MG/DL) 129 H 145 H Lactic Acid (0.7 - 2.0 mmol/L) 1.9 Rapid Troponin I (0.00 - 0.079 ng/mL) 0.07 Triglycerides (mg/dL) 102 Cholesterol (mg/dL) 117 LDL Cholesterol Measurd (32 - 99 mg/dL) 52.00 HDL Cholesterol (40 - 59 mg/dL) 27 L Coronary Risk Interp 4.33 06/19 425 Chemistry Sodium (137 - 145 mmol/L) 135 L Potassium (3.4 - 5.0 mmol/L) 3.8 Chloride (98 - 107 mmol/L) 96 L Carbon Dioxide (22 - 30 mmol/L) 24 BUN (9 - 20 mg/dL) 32 H Creatinine (0.7 - 1.3 mg/dL) 1.7 H Glomerular Filtr Rate (>60) 60 Glucose (74 - 106 mg/dL) 105 Calcium (8.4 - 10.2 mg/dL) 9.0 Total Bilirubin (0.2 - 1.3 mg/dL) 1.6 H Conjugated Bilirubin (0 - 0.3 mg/dL) 0 Unconjugated Bilirubin (0 - 1.1 mg/dL) 0.7 AST (15 - 46 U/L) 62 H ALT (0 - 34 U/L) 72 H Total Alk Phosphatase (38 - 126 U/L) 125 Total Protein (6.3 - 8.2 g/dL) 8.3 H Albumin (3.5 - 5.0 g/dL) 4.1 Laboratory Tests 06/19 425 Coagulation INR 1.6 PTT (Nathan) (23.4 - 37.0 SECONDS) 30.5 PT Patient/Control Mix (9.2 - 12.1 SECONDS) 18. 3 H Laboratory Tests 06/19 425 Hematology WBC (5.0 - 12.0 x10 3/uL) 6.9 RBC (4.70 - 6.10 x10 6/uL) 4.14 L Hgb (14.0 - 18.0 g/dL) 12.0 L Hct (37.0 - 49.0 %) 38.2 MCV (80 - 94 fL) 92 MCH (27 - 31 pg) 29.0 MCHC (33 - 37 g/dL) 31.4 L RDW (11.5 - 15.5 %) 15.9 H Plt Count (130 - 400 x10 3/uL) 422 H MPV (9.4 - 16.4 fL) 10.3 Neut % (Auto) (43 - 65 %) 80.3 H Lymph % (Auto) (20.5 - 45.5 %) 12.5 L Citrus % (Auto) (5.5 - 11.7 %) 6.0 Eos % (Auto) (0.9 - 2.9 %) 0.4 L Baso % (Auto) (0.2 - 1.0 %) 0.4 Neut # (Auto) (2.2 - 4.8 x10 3/uL) 5.51 H Lymph # (Auto) (1.3 - 2.9 x10 3/uL) 0.86 L Citrus # (Auto) (0.3 - 0.8 x10 3/uL) 0.41 Eos # (Auto) (0.0 - 0.2 x10 3/uL) 0.03 Baso # (Auto) (0.0 - 0.1 x10 3/uL) 0.03 Immature Gran % (0.0 - 2.0 %) 0.4 Nucleated RBC % (0 - 1.0 %) 0.0 Laboratory Tests 12/25 0425 Serology SARS CoV-2 RNA Rapid RENU (NEGATIVE) Negative The patient's CT scans were reviewed in detail a nd interpreted by me. His CT scan from February 27, 2020 was compared with nv s CT scan from 06/19/2020. The thoracic aorta at the level of the left subc lavian artery is stable at 32 mm. The proximal descending thoracic aorta at th e level of the main pulmonary artery is now 29 mm down from 30 mm and appears to have completely healed whereas previously there was a small thrombosed false lumen. At the level of the diaphragm the aorta has enlarged sli ghtly at 37 mm with a true lumen to 23 mm in. And a 14 mm with partial full mir ent flow noted which is increased from 33 mm total diameter with a true lumen of 23 mm in full some of 10 mm which also had partial flow visualized within the. At that time. At the level of the celiac artery the orders increased in size to 32 mm total with a 21 mm true lumen and 11 mm false lumen with continu ed false lumen flow which is increased from a total diameter 29 mm with the true lumen of 20 mm in the false lumen of 9 mm also with false lumen flow noted at t hat time. At the level of the superior mesenteric artery the total aortic diameter has increased to 28 mm with the true lumen to 13 mm and a false lumen of 15 m m with false lumen flow noted which is increased from 25 mm total diameter with the fredo e lumen of 14 mm and a false lumen of 11 mm also with pulsatile inflow at vincenzo t time. The intrarenal total aortic diameter has also inc reased slightly to 28 mm with a true lumen of 15 mm and a false lumen of 13 mm w ith false lumen flow continued to be noted which has increased from 24 mm total a ortic diameter with a true lumen of 15 mm and false lumen of 9 mm, false lumen flow was also noted a t this time. The right renal artery has a stable appearing dissection and the re appears to be no hemodynamically significant stenosis int o either of the renal arteries at this time. At the level of the bifurcation the total aortic diameter is increased slightly to 24 mm of the fredo e lumen to 13 mm and a false lumen of 11 mm however there is no flow noted within the false lumen at this level now whereas there was previously false lumen flow noted on the pre vious study where the total aortic diameter measured 21 mm with a true lumen to 12 mm and a false lumen and 9 mm. The common iliac arteries appear l argely stable. There is no evidence of dissection on either study at the level of the e xternal iliac arteries. Free text obj notes: General: Well developed, well nourished, in no a pparent distress Head: Atraumatic, normocephalic Neck: supple Chest: equal chest rise bilaterally, no increase d work of breathing Cardiac: Regular rate Abdomen: Soft, nontender, nondistended Extremities:moving all, no gross deformities Neuro: sensation intact to light touch Pulses: Femoral pulses intact bilaterally Skin: No rash Psychiatric: awake, alert, oriented to person, t diana, place and situation Diagnosis, Assessment Plan Free Text A P: Patient is a 34-year-old male with history of ty pe B aortic dissection status post thoracic endovascular aortic repair at [facility] who presents with hypertensive urgency and chest and back easton n. Patient was admitted for impulse control goal blood p ressure less than 120 mmHg and heart rate goal of 60 bpm or less. Patient also noted to have an acute kidney injury with a creatinine on admission of 1.7 up from 1.2. Rosalia ent also has evidence of groundglass opacities on his CT scan concerning for Covid pneumonia and the patient is currently a Covid patient under inves tigation. Our recommendations are as follows: Impulse control with blood p ressure to be kept under 120 mmHg systolic and heart rate 60 bpm or less: Recommend a arterial line g iven the patient's continued pain and need for strict blood pressure control on a beat by beat basis Trend the patient's creatini ne involve nephrology for recommendations given the patient's acute kidney injury. Recommend a Zuñiga catheter to closely monitor the patient's ins and outs i n order to determine the source of his acute kidney injury. Increase the patient scheduled pain medications to improve his pain control. Appreciate cardiology recommendations for blood pressure control The patient may benefit from additional thoracic endovascular aortic repair however patient needs to first be stabilized. Vascular surgery will continue to follow. The plan was discussed with the ICU resident in person as well as the nurse practitioner. Kleber Newby MD [facility] Electronically Signed by Kleber Newby MD on 05/27 12/13 at 0002 [facility] #:[id number] END OF REPORT 2020-06-19 19:14:00-00:00 [id number] [facility] john [facility]CAK[facility] [address] [place] [address] PATIENT NAME: JORGE GOINS ADMIT DATE: 06/19 ACCOUNT NO: [id number] ROOM NO: [facility] AGE: 34 REPORT TYPE: CONSULTATION SEX: M ADMITTING PHYSICIAN:Edy Olmedo MD ATTENDING PHYSICIAN:Edy Olmedo MD CONSULTATION DATE: 06/19/2020 CONSULTING PHYSICIAN: Giancarlo Phan MD INITIAL INPATIENT CONSULTATION REASON FOR CONSULTATION: Hypertensive urgency/em ergency. HISTORY OF PRESENT ILLNESS: The patient is a 34-year-old male with a history of type B dissection, recent TAVR, hypertension wit h some questionable medical noncompliance, although he says that he has not taking his medications, who presents after he just was not feeling well. According to the patient, ov er the last couple of days, mainly about 5 or 6, he has noticed that he has not been quite feeling w ell. He has noticed some back pain as well as some intermittent chest pain. He says that he just overall was unable to play with his kids without feeling angelica rt of breath with exertion. Upon arrival to the ER, his blood pressure was found to be in the 250s/150s and he was subsequently started on nicardipine drip as well as some esmolol and since that point in time, they have subsequently got his blood pressure down significantly. Currently, he states that he is feeling a little bit better. Denies any overt chest pain, shortness of breath, or syncope. Oth erwise, really no other acute complaints. He does endorse some lower extremity edema though. PAST MEDICAL HISTORY: 1. Congestive heart failure. 2. Hypertension. 3. Type B dissection, status-post TAVR. PAST SURGICAL HISTORY: 1. TAVR. 2. Cholecystectomy. FAMILY HISTORY: Diabetes and hypertension. SOCIAL HISTORY: Never smoked. Unemployed. Good s ocial support. Denies any alcohol, or drugs. ALLERGIES: IODINE AND SULFA. PATIENT NAME: JORGE GIONS [id number] REVIEW OF SYSTEMS: A full 10-point review of sys tems was done including head, ears, eyes, nose, throat, cardiac, respiratory, GI, , neurological, psychiatric, dermatologic with all being grossly negative except for pertinent positives per HPI. PHYSICAL EXAMINATION: VITAL SIGNS: Blood pressure on examination 140/6 0 on 7.5 nicardipine, respiratory rate 18, heart rate 86, and, tempera ture 37.4, satting 99%. GENERAL: The patient is awake, alert, in no acut e distress. HEENT: Head, atraumatic and normocephalic. Eyes are anicteric. Good extraocular movement. NECK: No significant JVP. HEART: S1 and S2 present with mild early peaking murmur. ABDOMEN: Soft with bowel sounds present. MUSCULOSKELETAL: Kbwv-gk-naljbaoc pretibial timur a. NEUROLOGIC: Nonfocal. PSYCHIATRIC: Appropriate affect. DERMATOLOGIC: No obvious signs of skin breakdown . ASSESSMENT AND PLAN: The patient is a 34-year-ol d gentleman with multiple medical problems, most notably hypertensive rommel gency. 1. Currently hypertensive urgency. The p atient has been started on nicardipine drip. I would like to place the patient on his Coreg and intermittent diuretics and then subsequently we jesse l try to wean esmolol and nicardipine as tolerated. 2. Type B dissection, status post TAVR, we will continue to monitor. 3. Chronic diastolic heart failure, intermittent IV Lasix. 4. Chronic kidney disease, stage at least III, p robably secondary to his significant blood pressure issues. We wi ll continue to monitor. He is making a fairly good urine. I discussed the plan of care with the patient wh o expressed understanding and agreed to plan. No further questions. Thank you for this dictation. Dictated By: Giancarlo Phan MD WT: CON:C.[email or web address]/NTS Conf#: [id number]/DID#: [id number] Authenticated by Giancarlo Phan MD On 06/30/2020 10:43:43 AM Electronically Signed by Giancarlo Phan MD on 11/13 at 1044 PATIENT NAME: JORGE GOINS [id number] 0062-12-25 08:47:00-00:[address] [facility] ([facility]) Critical Care Consult Note REPORT#:[id number] REPORT STATUS: Signed DATE:06/19/20 TIME: 846 PATIENT: JORGE GOINS UNIT #: [id number] ROOM/BED: [facility]19-A : 86 AGE: 34 SEX: M ATTEND: Luis M Olmedo MD ADM AUTHOR: Wilfred Pereira MD R2 * ALL edits or amendments must be made on the el ectronic/computer document * History of Present Illness HPI HPI: 34 year old male with histor y of aortic dissection s/p EVAR by Dr. Ramires group , HTN, CHF , medication non-compliance cam e in for hypertensive urgency with SBP of 220s and HR in 80-90s. Per previous record re commendation from vascular surgery patient will need to have BP control <12 0. History is limited because patient is drowsy from ativa n given prior to exam. CT chest showed stable aortic dissection with no mention of endoleak . CTA of chest however is concerned for multiple focal PNA. Rapid Co vid is negative. Patient is satting 90s on 2L of NC. PE is showed lethargic patie nt otherwise unremarkable. Esmolol and cardene drip ordered. Cardiology and Vasc ular surgery consulted. Patient is to be admitted to ICU for further care. History - Adult longitudinal Past medical history: Reports: Congestive heart failure, Hypertension. Additional medical history: type B dissection s/p TEVAR Past surgical history: Reports: Cholecystectomy. Additional surgical history: TEVAR Family history: Reports: Diabetes, Hypertension. 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 Allergies: Coded Allergies: Iodine and Iodide Containing Produc (Severe, HIV ES 11/19/19) shellfish derived (Intermediate, RASH 11/19/19) Objective Physical Exam VS/I O: Last Documented: Result Date Time Pulse Ox 95 06/19 0854 B/P 203/130 06/19 0854 B/P Mean 154 06/19 0854 Pulse 83 06/19 0854 Resp 19 06/19 0854 O2 Delivery Nasal cannula 06/19 0620 O2 Flow Rate 2 06/19 06 Temp 37.4 06/19 0417 24 hour I O ending at 0700: 06/19 0700 06/18 1900 Intake Total Output Total Balance Patient 88.636 kg Weight Weight Stated/Reported Measurement Method PATIENT WEIGHT: Weight (lb): Weight (oz): Weight (kg): 88.636 Medications: Active Meds + DC'd Last 24 Hrs Amlodipine Besylate 10 MG DAILY PO Carvedilol 12.5 MG Q12HR PO Esmolol HCl 250 ML TITRATE IV (CKD) Nicardipine HCl 250 ML TITRATE IV Sodium Chloride 5 ML Q12HR IV Sodium Chloride 5 ML ASDIR PRN IV Sodium Chloride 10 ML ASDIR PRN IV Sodium Chloride 250 ML ASDIR PRN IV Ondansetron HCl 4 MG Q4H PRN PRN IV Labetalol HCl 10 MG X1ED STA IV (DC) Lorazepam 1 MG X1ED STA IV (DC) Labetalol HCl 10 MG X1ED STA IV (DC) Morphine Sulfate 4 MG X1ED STA IV (DC) Iopamidol 100 ML .STK-MED ONE IV (DC) Diphenhydramine HCl 25 MG X1ED STA IV (DC) Methylprednisolone Sodium Succinate 125 MG X1ED STA IV (DC) Ondansetron HCl 4 MG X1ED STA IV (DC) Ceftriaxone Sodium 1,000 MG X1ED STA IV (DC) Sterile Water 10 ML General appearance: confused, lethargic, sedated Cardiovascular: normal capillary refill, normal heart sounds, regular rate and rhythm Respiratory: aerating well Abdomen: soft, non-tender Extremities: moves all, normal capillary refill Results Findings/Data: Laboratory Tests 06/19/20 0425: [Embedded Image Not Available] Laboratory Tests 06/19 06/19 06/19 06/19 0439 0425 0425 0425 Chemistry Sodium (137 - 145 mmol/L) 135 L Potassium (3.4 - 5.0 mmol/L) 3.8 Chloride (98 - 107 mmol/L) 96 L Carbon Dioxide (22 - 30 mmol/L) 24 BUN (9 - 20 mg/dL) 32 H Creatinine (0.7 - 1.3 mg/dL) 1.7 H Glomerular Filtr Rate (>60) 60 Glucose (74 - 106 mg/dL) 105 Lactic Acid (0.7 - 2.0 mmol/L) 1.9 Calcium (8.4 - 10.2 mg/dL) 9.0 Total Bilirubin (0.2 - 1.3 mg/dL) 1.6 H Conjugated Bilirubin (0 - 0.3 mg/dL) 0 Unconjugated Bilirubin (0 - 1.1 mg/dL) 0.7 AST (15 - 46 U/L) 62 H ALT (0 - 34 U/L) 72 H Total Alk Phosphatase (38 - 126 U/L) 125 Rapid Troponin I (0.00 - 0.079 ng/mL) 0.07 Total Protein (6.3 - 8.2 g/dL) 8.3 H Albumin (3.5 - 5.0 g/dL) 4.1 Triglycerides (mg/dL) 102 Cholesterol (mg/dL) 117 LDL Cholesterol Measurd (32 - 99 mg/dL) 52.00 HDL Cholesterol (40 - 59 mg/dL) 27 L Coronary Risk Interp 4.33 Laboratory Tests 06/19 0425 Coagulation INR 1.6 PTT (Nathan) (23.4 - 37.0 SECONDS) 30.5 PT Patient/Control Mix (9.2 - 12.1 SECONDS) 18. 3 H Laboratory Tests 06/19 0425 Hematology WBC (5.0 - 12.0 x10 3/uL) 6.9 RBC (4.70 - 6.10 x10 6/uL) 4.14 L Hgb (14.0 - 18.0 g/dL) 12.0 L Hct (37.0 - 49.0 %) 38.2 MCV (80 - 94 fL) 92 MCH (27 - 31 pg) 29.0 MCHC (33 - 37 g/dL) 31.4 L RDW (11.5 - 15.5 %) 15.9 H Plt Count (130 - 400 x10 3/uL) 422 H MPV (9.4 - 16.4 fL) 10.3 Neut % (Auto) (43 - 65 %) 80.3 H Lymph % (Auto) (20.5 - 45.5 %) 12.5 L Citrus % (Auto) (5.5 - 11.7 %) 6.0 Eos % (Auto) (0.9 - 2.9 %) 0.4 L Baso % (Auto) (0.2 - 1.0 %) 0.4 Neut # (Auto) (2.2 - 4.8 x10 3/uL) 5.51 H Lymph # (Auto) (1.3 - 2.9 x10 3/uL) 0.86 L Citrus # (Auto) (0.3 - 0.8 x10 3/uL) 0.41 Eos # (Auto) (0.0 - 0.2 x10 3/uL) 0.03 Baso # (Auto) (0.0 - 0.1 x10 3/uL) 0.03 Immature Gran % (0.0 - 2.0 %) 0.4 Nucleated RBC % (0 - 1.0 %) 0.0 Laboratory Tests 06/19 425 Serology SARS CoV-2 RNA Rapid RENU (NEGATIVE) Negative Microbiology: 06/19 425 BLOOD: Blood Culture - RECD 06/19 425 BLOOD: Blood Culture - RECD Radiology data: Recent Impressions: CAT SCAN - CT ANGIO CHEST 06/19 529 Report Impression - Status: SIGNED Entered: 06/19/2020 0635 IMPRESSION: 1. Unchanged appearance of the thoracoabdominal aortic stent graft without evidence of aortic rupture or graft infe ction. 2. 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 The ri ght external iliac artery stent is patent. 3. Multiple groundglass and nodular infiltrates throughout the bilateral lower lobes are compatible with pneumo omer. Impression By: Christianne Alfaro MD CAT SCAN - CTA ABD PEL W CONT 06/19 0530 Report Impression - Status: SIGNED Entered: 06/19/2020 0635 IMPRESSION: 1. Unchanged appearance of the thoracoabdominal aortic stent graft without evidence of aortic rupture or graft infe ction. 2. 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 The ri ght external iliac artery stent is patent. 3. Multiple groundglass and nodular infiltrates throughout the bilateral lower lobes are compatible with pneumo omer. Impression By: Christianne Alfaro MD RADIOLOGY - XR CHEST 1 V 06/19 0533 Report Impression - Status: SIGNED Entered: 06/19/2020 0610 IMPRESSION: 1. Stable cardiomegaly. 2. Right basilar atelectasis versus infiltrates. Impression By: Christianne Ta Cheli Alfaro MD Diagnosis, Assessment Plan Diagnosis, Assessment Plan Free Text A P: 34 year old male with history of aortic dissecti on s/p EVAR came in for hypertensive urgency #AMS - 2/2 ativan vs hypertensive encephalopathy - cont to monitor. - improving complaining of headache #CVS - h/o EVAR for aortic dissection and h/o endolea k in the past - seen by Dr. Ramires's group last admission. Dr. Wallace larsen consulted - given picture of hypertensive urgency , will s tart Esmolol and Cardene drip with SBP goal < 120 - pending Cardio consult #HTN - on esomolol and cardene - patient is medication non-compliance - resume home med - headache => tylenol PRN #COVID - pending PCR - CT chest b/l infiltrates at the bases - not hypoxic . will watch for now gi ppx: pepcid dvt ppx: heparin Electronically Signed by Wilfred Pereira MD R2 on 1 08/20/19 at 1719 RPT #:[id number] END OF REPORT 2020-06-19 08:47:00-00:[address] [facility] ([facility]) Critical Care Consult Note REPORT#:[id number] REPORT STATUS: Signed DATE:06/19/20 TIME: 846 PATIENT: JORGE GOINS UNIT #: [id number] ROOM/BED: [address] : 86 AGE: 34 SEX: M ATTEND: Luis M Olmedo MD ADM AUTHOR: Wilfred Pereira MD R2 * ALL edits or amendments must be made on the rimidi/computer document * Wilfred Pereira 06/19/20 0847: History of Present Illness HPI HPI: 34 year old male with histor y of aortic dissection s/p EVAR by Dr. Ramires group , HTN, CHF , medication non-compliance cam e in for hypertensive urgency with SBP of 220s and HR in 80-90s. Per previous record re commendation from vascular surgery patient will need to have BP control <12 0. History is limited because patient is drowsy from ativa n given prior to exam. CT chest showed stable aortic dissection with no mention of endoleak . CTA of chest however is concerned for multiple focal PNA. Rapid Co vid is negative. Patient is satting 90s on 2L of NC. PE is showed lethargic patie nt otherwise unremarkable. Esmolol and cardene drip ordered. Cardiology and Vasc ular surgery consulted. Patient is to be admitted to ICU for further care. History - Adult longitudinal Past medical history: Reports: Congestive heart failure, Hypertension. Additional medical history: type B dissection s/p TEVAR Past surgical history: Reports: Cholecystectomy. Additional surgical history: TEVAR Family history: Reports: Diabetes, Hypertension. Additional family history: Mother alive history of diabetes hypertension Father unknown Alcohol use: Denies EtOH use Drug use: Denies recreational drugs Smoking status for patients 13 years old or olde r: Unknown,if ever smoked Other social history: Unemployed, Local resident , Good social support Additional social history: single he works in [employer] he denies any alcoh ol use or tobacco use Allergies: Coded Allergies: Iodine and Iodide Containing Produc (Severe, HIV ES 11/19/19) shellfish derived (Intermediate, RASH 11/19/19) Objective Physical Exam VS/I O: Last Documented: Result Date Time Pulse Ox 95 06/19 0854 B/P 203/130 06/19 0854 B/P Mean 154 06/19 0854 Pulse 83 06/19 0854 Resp 19 06/19 0854 O2 Delivery Nasal cannula 06/19 0620 O2 Flow Rate 2 06/19 0620 Temp 37.4 06/19 0417 24 hour I O ending at 0700: 06/19 0700 06/18 1900 Intake Total Output Total Balance Patient 88.636 kg Weight Weight Stated/Reported Measurement Method PATIENT WEIGHT: Weight (lb): Weight (oz): Weight (kg): 88.636 Medications: Active Meds + DC'd Last 24 Hrs Amlodipine Besylate 10 MG DAILY PO Carvedilol 12.5 MG Q12HR PO Esmolol HCl 250 ML TITRATE IV (CKD) Nicardipine HCl 250 ML TITRATE IV Sodium Chloride 5 ML Q12HR IV Sodium Chloride 5 ML ASDIR PRN IV Sodium Chloride 10 ML ASDIR PRN IV Sodium Chloride 250 ML ASDIR PRN IV Ondansetron HCl 4 MG Q4H PRN PRN IV Labetalol HCl 10 MG X1ED STA IV (DC) Lorazepam 1 MG X1ED STA IV (DC) Labetalol HCl 10 MG X1ED STA IV (DC) Morphine Sulfate 4 MG X1ED STA IV (DC) Iopamidol 100 ML .STK-MED ONE IV (DC) Diphenhydramine HCl 25 MG X1ED STA IV (DC) Methylprednisolone Sodium Succinate 125 MG X1ED STA IV (DC) Ondansetron HCl 4 MG X1ED STA IV (DC) Ceftriaxone Sodium 1,000 MG X1ED STA IV (DC) Sterile Water 10 ML General appearance: confused, lethargic, sedated Cardiovascular: normal capillary refill, normal heart sounds, regular rate and rhythm Respiratory: aerating well Abdomen: soft, non-tender Extremities: moves all, normal capillary refill Results Findings/Data: Laboratory Tests 06/19/20424: [Embedded Image Not Available] Laboratory Tests 06/19 06/19 06/19 06/19 0439 0425 0425 0425 Chemistry Sodium (137 - 145 mmol/L) 135 L Potassium (3.4 - 5.0 mmol/L) 3.8 Chloride (98 - 107 mmol/L) 96 L Carbon Dioxide (22 - 30 mmol/L) 24 BUN (9 - 20 mg/dL) 32 H Creatinine (0.7 - 1.3 mg/dL) 1.7 H Glomerular Filtr Rate (>60) 60 Glucose (74 - 106 mg/dL) 105 Lactic Acid (0.7 - 2.0 mmol/L) 1.9 Calcium (8.4 - 10.2 mg/dL) 9.0 Total Bilirubin (0.2 - 1.3 mg/dL) 1.6 H Conjugated Bilirubin (0 - 0.3 mg/dL) 0 Unconjugated Bilirubin (0 - 1.1 mg/dL) 0.7 AST (15 - 46 U/L) 62 H ALT (0 - 34 U/L) 72 H Total Alk Phosphatase (38 - 126 U/L) 125 Rapid Troponin I (0.00 - 0.079 ng/mL) 0.07 Total Protein (6.3 - 8.2 g/dL) 8.3 H Albumin (3.5 - 5.0 g/dL) 4.1 Triglycerides (mg/dL) 102 Cholesterol (mg/dL) 117 LDL Cholesterol Measurd (32 - 99 mg/dL) 52.00 HDL Cholesterol (40 - 59 mg/dL) 27 L Coronary Risk Interp 4.33 Laboratory Tests 06/19 425 Coagulation INR 1.6 PTT (Nathan) (23.4 - 37.0 SECONDS) 30.5 PT Patient/Control Mix (9.2 - 12.1 SECONDS) 18. 3 H Laboratory Tests 06/19 425 Hematology WBC (5.0 - 12.0 x10 3/uL) 6.9 RBC (4.70 - 6.10 x10 6/uL) 4.14 L Hgb (14.0 - 18.0 g/dL) 12.0 L Hct (37.0 - 49.0 %) 38.2 MCV (80 - 94 fL) 92 MCH (27 - 31 pg) 29.0 MCHC (33 - 37 g/dL) 31.4 L RDW (11.5 - 15.5 %) 15.9 H Plt Count (130 - 400 x10 3/uL) 422 H MPV (9.4 - 16.4 fL) 10.3 Neut % (Auto) (43 - 65 %) 80.3 H Lymph % (Auto) (20.5 - 45.5 %) 12.5 L Citrus % (Auto) (5.5 - 11.7 %) 6.0 Eos % (Auto) (0.9 - 2.9 %) 0.4 L Baso % (Auto) (0.2 - 1.0 %) 0.4 Neut # (Auto) (2.2 - 4.8 x10 3/uL) 5.51 H Lymph # (Auto) (1.3 - 2.9 x10 3/uL) 0.86 L Citrus # (Auto) (0.3 - 0.8 x10 3/uL) 0.41 Eos # (Auto) (0.0 - 0.2 x10 3/uL) 0.03 Baso # (Auto) (0.0 - 0.1 x10 3/uL) 0.03 Immature Gran % (0.0 - 2.0 %) 0.4 Nucleated RBC % (0 - 1.0 %) 0.0 Laboratory Tests 06/19 425 Serology SARS CoV-2 RNA Rapid RENU (NEGATIVE) Negative Microbiology: 06/19 425 BLOOD: Blood Culture - RECD 06/19 425 BLOOD: Blood Culture - RECD Radiology data: Recent Impressions: CAT SCAN - CT ANGIO CHEST 06/19 0529 Report Impression - Status: SIGNED Entered: 06/19/2020 0635 IMPRESSION: 1. Unchanged appearance of the thoracoabdominal aortic stent graft without evidence of aortic rupture or graft infe ction. 2. 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 The [facility] g[facility] external iliac artery stent is patent. 3. Multiple groundglass and nodular infiltrates throughout the bilateral lower lobes are compatible with pneumo omer. Impression By: Christianne Alfaro MD CAT SCAN - CTA ABD PEL W CONT 06/19 0530 Report Impression - Status: SIGNED Entered: 06/19/2020 0635 IMPRESSION: 1. Unchanged appearance of the thoracoabdominal aortic stent graft without evidence of aortic rupture or graft infe ction. 2. 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 The [facility] external iliac artery stent is patent. 3. Multiple groundglass and nodular infiltrates throughout the bilateral lower lobes are compatible with pneumo omer. Impression By: Christianne Alfaro MD RADIOLOGY - XR CHEST 1 V 06/19 0533 Report Impression - Status: SIGNED Entered: 06/19/2020 0610 IMPRESSION: 1. Stable cardiomegaly. 2. Right basilar atelectasis versus infiltrates. Impression By: Christianne Alfaro MD Diagnosis, Assessment Plan Diagnosis, Assessment Plan Free Text A P: 34 year old male with history of aortic dissecti on s/p EVAR came in for hypertensive urgency #AMS - 2/2 ativan vs hypertensive encephalopathy - cont to monitor. - improving complaining of headache #CVS - h/o EVAR for aortic dissection and h/o endolea k in the past - seen by Dr. Ramires's group last admission. Dr. Wallace larsen consulted - given picture of hypertensive urgency , will s tart Esmolol and Cardene drip with SBP goal < 120 - pending Cardio consult #HTN - on esomolol and cardene - patient is medication non-compliance - resume home med - headache => tylenol PRN #COVID - pending PCR - CT chest b/l infiltrates at the bases - not hypoxic . will watch for now gi ppx: pepcid dvt ppx: heparin Sarva,Sivatej 07/02/20 1427: Attestations Physician Attestation Agree w/findings plan: I have personally interviewed and examin ed the patient 06/19/2020. All charts, labs, and imaging studies were reviewed. I agree with the resident's findings, exam, and plan. Lungs are clear Esmolol drip. Vascular consult. CC time >40min. No procedure time Electronically Signed by Wilfred Pereira MD R2 on 1 08/20/19 at 1719 Electronically Signed by Edy Olmedo MD on 01/13 at 1428 RPT #:[id number] END OF REPORT 2020-06-19 04:25:00-00:[address] [facility] ([facility]) EMERGENCY PROVIDER REPORT REPORT#:[id number] REPORT STATUS: Signed DATE:06/19/20 TIME: 424 PATIENT: JORGE GOINS UNIT #: [id number] ROOM[address]BED: [address] AGE: 34 SEX: M PCP PHYS: No Primary or Family Ph ysician SERVICE AUTHOR: Manuel Cortez DO * ALL edits or amendments must be made on the rimidi/computer document * Manuel Cortez 06/19/205: HPI-Chest Pain Under 40 General Initial Greet Date/Time 06/19/20 0414 Presentation Chief Complaint Chest pain, Back pain Sudden in Onset? Yes )( Migration/Movement None Risk-Chest Pain Under 40 Risk Stratification )( Coronary Artery Disease Risk factors reviewed )( Pulmonary Embolism Risk factors reviewed Review of Systems Focused Review of Systems Constitutional Denies: Chills, Fever, Lethargy. Respiratory Denies: Cough, non-productive, Cough, productive , Shortness of breath. Cardiovascular Reports: Chest pain. Denies: Dyspnea on exertion , Edema, Orthopnea, Palpitations, Parox nocturnal dyspnea, Syncope. GI Denies: Abdominal pain, Diarrhea, Nausea, Vomiti ng. Musculoskeletal Denies: Back pain, Extremity pain. Skin Denies: Diaphoresis, Rash. Neurologic Denies: Change LOC, Dizziness, Focal weakness, H eadache, Numbness, Slurred speech. Psychiatric Denies: Anxiety, Depression. Past Medical History - Adult Stated Complaint DRY COUGH,TEMP 99.3 Allergies Coded Allergies: Iodine and Iodide Containing Produc (Severe, HIV ES 11/19/19) shellfish derived (Intermediate, RASH 11/19/19) Home Medications Active Scripts ASPIRIN EC (ECOTRIN) 81 MG PO DAILY 30 Days #30 TABS Prov: 05/10/19 CARVEDILOL (COREG) 25 MG PO BID MEALS 30 Days #60 TAB Prov: 05/10/19 ACETAMINOPHEN/CODEINE (TYLENOL WITH CODE INE #4 300/60 MG) 1 TAB PO Q6H PRN PRN PAIN 7 Days #20 TAB Prov: 05/10/19 ATORVASTATIN (LIPITOR) 20 MG PO BEDTIME 30 Days #30 TABS Prov: 11/23/19 LOSARTAN (COZAAR) 100 MG PO DAILY LOSARTAN (COZAAR) 100 MG PO DAILY #30 TAB Prov: 11/23/19 NIFEdipine CC (ADALAT CC) 90 MG PO Q12HR NIFEdipine CC (ADALAT CC) 90 MG PO Q12HR #60 TA B Prov: 11/23/19 HYDROCHLOROTHIAZIDE (HYDRODIURIL) 25 MG PO DAILY HYDROCHLOROTHIAZIDE (HYDRODIURIL) 25 MG PO THOMAS Y #30 TAB Prov: 11/23/19 Reported Medications ALBUTEROL (PROAIR HFA 90 MCG/ACT 8.5 GM) 2 PUFF INH RTQ6H PRN PRN SOB Past Medical History: Reports: Congestive heart failure, Hypertension. Additional Medical History type B dissection s/p TEVAR Past Surgical History: Reports: Cholecystectomy. Additional Surgical History TEVAR Family History: Reports: Diabetes, Hypertension. 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 Physical Exam Vital Signs Review of Vital Signs Reviewed Focused PE General/Const General/Const Awake, Alert, Well appearing Eyes Eyes PERRL MS Neck Neck Supple, Full range of motion, No s welling, Non-tender, No masses, No JVD Resp/Chest Respiratory/Chest Breath sounds NL, Breath soun ds = bilat, No respiratory distress, No rales, No rhonchi, No wheezing, No chest tenderness Cardiovascular Cardiovascular Heart rate NL, Regular rhythm, H eart sounds NL, No murmurs, Peripheral circulation NL, Pulses = bilaterally, No gross BP differential Abdomen/GI Abdomen/GI Soft, Non-tender, No guarding, No re bound MS Back Back Inspection NL, Non-tender, No CVA tenderne ss MS Lower Extrem Lower Ext/Pelvis/MS Inspection NL, No swelling, Non-tender, No erythema, No deformity, Neurologic intact, Vascular intact, N o edema Skin Skin Color NL, Warm, Dry, Turgor NL Neurologic Neurologic Oriented X3, Speech NL, No motor def icits, No sensory deficits Psychiatric Psychiatric Affect NL, Mood NL, Thought content NL ReinaKing reina 06/19/20 0738: Physical Exam Vital Signs Vital Signs First Documented: Result Date Time Pulse Ox 100 06/19 0417 B/P 226/162 06/19 0417 B/P Mean 183 06/19 0417 O2 Delivery Room air 06/19 041 Temp 99.4 06/19 041 Pulse 102 06/19 0417 Resp 24 06/19 0417 O2 Flow Rate 2 06/19 0520 Last Documented: Result Date Time Pulse Ox 97 06/19 0620 B/P 227/153 06/19 0620 B/P Mean 177 06/19 0620 O2 Delivery Nasal cannula 06/19 06 O2 Flow Rate 2 06/19 06 Pulse 104 06/19 0620 Resp 18 06/19 0620 Temp 99.4 06/19 0417 Interpretation Diagnostics Lab Results Interpretation Results Laboratory Tests 06/19/20 0425: [Embedded Image Not Available] Laboratory Tests: 06/19 06/19 06/19 06/19 0439 0425 0425 0425 Chemistry Sodium (137 - 145 mmol/L) 135 L Potassium (3.4 - 5.0 mmol/L) 3.8 Chloride (98 - 107 mmol/L) 96 L Carbon Dioxide (22 - 30 mmol/L) 24 BUN (9 - 20 mg/dL) 32 H Creatinine (0.7 - 1.3 mg/dL) 1.7 H Glomerular Filtr Rate (>60) 60 Glucose (74 - 106 mg/dL) 105 Lactic Acid (0.7 - 2.0 mmol/L) 1.9 Calcium (8.4 - 10.2 mg/dL) 9.0 Total Bilirubin (0.2 - 1.3 mg/dL) 1.6 H Conjugated Bilirubin (0 - 0.3 mg/dL) 0 Unconjugated Bilirubin (0 - 1.1 mg/dL) 0.7 AST (15 - 46 U/L) 62 H ALT (0 - 34 U/L) 72 H Total Alk Phosphatase (38 - 126 U/L) 125 Rapid Troponin I (0.00 - 0.079 ng/mL) 0.07 Total Protein (6.3 - 8.2 g/dL) 8.3 H Albumin (3.5 - 5.0 g/dL) 4.1 Triglycerides (mg/dL) 102 Cholesterol (mg/dL) 117 LDL Cholesterol Measurd (32 - 99 mg/dL) 52.00 HDL Cholesterol (40 - 59 mg/dL) 27 L Coronary Risk Interp 4.33 Coagulation INR 1.6 PTT ([place]) (23.4 - 37.0 SECONDS) 30.5 PT Patient/Control Mix (9.2 - 12.1 SECONDS) 18. 3 H Hematology WBC (5.0 - 12.0 x10 3/uL) 6.9 RBC (4.70 - 6.10 x10 6/uL) 4.14 L Hgb (14.0 - 18.0 g/dL) 12.0 L Hct (37.0 - 49.0 %) 38.2 MCV (80 - 94 fL) 92 MCH (27 - 31 pg) 29.0 MCHC (33 - 37 g/dL) 31.4 L RDW (11.5 - 15.5 %) 15.9 H Plt Count (130 - 400 x10 3/uL) 422 H MPV (9.4 - 16.4 fL) 10.3 Neut % (Auto) (43 - 65 %) 80.3 H Lymph % (Auto) (20.5 - 45.5 %) 12.5 L Citrus % (Auto) (5.5 - 11.7 %) 6.0 Eos % (Auto) (0.9 - 2.9 %) 0.4 L Baso % (Auto) (0.2 - 1.0 %) 0.4 Neut # (Auto) (2.2 - 4.8 x10 3/uL) 5.51 H Lymph # (Auto) (1.3 - 2.9 x10 3/uL) 0.86 L Citrus # (Auto) (0.3 - 0.8 x10 3/uL) 0.41 Eos # (Auto) (0.0 - 0.2 x10 3/uL) 0.03 Baso # (Auto) (0.0 - 0.1 x10 3/uL) 0.03 Immature Gran % (0.0 - 2.0 %) 0.4 Nucleated RBC % (0 - 1.0 %) 0.0 Serology SARS CoV-2 RNA Rapid RENU (NEGATIVE) Negative Microbiology: Date/Time Procedure - Status Source Growth 06/19 425 Blood Culture - RES BLOOD 06/19 425 Blood Culture - RES BLOOD Recent Impressions: CAT SCAN - CT ANGIO CHEST 06/19 05 Report Impression - Status: SIGNED Entered: 06/19/202035 IMPRESSION: 1. Unchanged appearance of the thoracoabdominal aortic stent graft without evidence of aortic rupture or graft infe ction. 2. 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 [facility] external iliac artery stent is patent. 3. Multiple groundglass and nodular infiltrates throughout the bilateral lower lobes are compatible with pneumo omer. Impression By: Christianne Alfaro MD CAT SCAN - CTA ABD PEL W CONT 06/19 0530 Report Impression - Status: SIGNED Entered: 06/19/202035 IMPRESSION: 1. Unchanged appearance of the thoracoabdominal aortic stent graft without evidence of aortic rupture or graft infe ction. 2. 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 [facility] external iliac artery stent is patent. 3. Multiple groundglass and nodular infiltrates throughout the bilateral lower lobes are compatible with pneumo omer. Impression By: Christianne Alfaro MD RADIOLOGY - XR CHEST 1 V 06/19 0533 Report Impression - Status: SIGNED Entered: 06/19/2020 0610 IMPRESSION: 1. Stable cardiomegaly. 2. Right basilar atelectasis versus infiltrates. Impression By: Christianne Alfaro MD Re-Evaluation MDM Free Text MDM Notes Free Text MDM Notes Received in signout. Patient with a cough shortn ess of breath. He tells me he really only has chest pain w hen he coughs he is not primarily here for the chest pain. Rapid Covid is negative. CT is noted, he winsome [place] does have Covid. Will send PCR and admit ED Course Medication(s) Ordered Medication(s) Ordered: Anti-Infective Agents Sig/Ronan Start time Last Medication Dose Route Stop Time Status Admin Ceftriaxone Sodium 1,000 MG X1ED STA 06/19 0421 DC 06/19 Sterile Water 10 ML IV 06/19 0423 0434 Antihistamine Drugs Sig/Ronan Start time Last Medication Dose Route Stop Time Status Admin Diphenhydramine HCl 25 MG X1ED STA 06/19 0500 D C 06/19 IV 06/19 0501 0503 Cardiovascular Drugs Sig/Ronan Start time Last Medication Dose Route Stop Time Status Admin Labetalol HCl 10 MG X1ED STA 06/19 0709 DC 12/2 5 IV 06/19 0710 0757 Labetalol HCl 10 MG X1ED STA 06/19 0614 DC 12/2 5 IV 06/19 0615 0627 Central Nervous System Agents Sig/Ronan Start time Last Medication Dose Route Stop Time Status Admin Lorazepam 1 MG X1ED STA 06/19 0708 DC 06/19 IV 06/19 0709 0756 Morphine Sulfate 4 MG X1ED STA 06/19 0551 DC IV 06/19 0552 0557 Diagnostic Agents Sig/Ronan Start time Last Medication Dose Route Stop Time Status Admin Iopamidol 100 ML .STK-MED ONE 06/19 0532 DC IV 06/19 0533 0532 Electrolytic, Caloric, And Camila Sig/Ronan Start time Last Medication Dose Route Stop Time Status Admin Sodium Chloride 5 ML Q12HR 06/19 0900 DC IV 06/19 1346 Sodium Chloride 5 ML ASDIR PRN 06/19 0800 DC IV 06/19 1346 Sodium Chloride 10 ML ASDIR PRN 06/19 0800 DC IV 06/19 1346 Sodium Chloride 250 ML ASDIR PRN 06/19 0800 DC IV 06/19 1346 Gastrointestinal Drugs Sig/Ronan Start time Last Medication Dose Route Stop Time Status Admin Ondansetron HCl 4 MG Q4H PRN PRN 06/19 0747 DC IV 06/19 1346 Ondansetron HCl 4 MG X1ED STA 06/19 0455 DC IV 06/19 0456 0503 Hormones And Synthetic Substit Sig/Ronan Start time Last Medication Dose Route Stop Time Status Admin Methylprednisolone 125 MG X1ED STA 06/19 0500 D C 06/19 Sodium Succinate IV 06/19 0501 0504 Patient Discharge Departure Vital Signs/Condition Vital Signs First Documented: Result Date Time Pulse Ox 100 06/19 0417 B/P 226/162 06/19 0417 B/P Mean 183 06/19 0417 O2 Delivery Room air 06/19 041 Temp 99.4 06/19 041 Pulse 102 06/19 0417 Resp 24 06/19 0417 O2 Flow Rate 2 06/19 0520 Last Documented: Result Date Time Pulse Ox 97 06/19 06 B/P 227/153 06/19 06 B/P Mean 177 06/19 06 O2 Delivery Nasal cannula 06/19 620 O2 Flow Rate 2 06/19 620 Pulse 104 06/19 06 Resp 18 06/19 620 Temp 99.4 06/19 0417 All vital signs available at the time of this en try have been reviewed. Clinical Impression Clinical Impression Primary Impression: COVID-19 Secondary Impressions: Accel erated essential hypertension, Multifocal pneumonia Disposition Decision Admit Admit Physician Name Andrew Salcedo MD Admit Physician Hospitalist Request Time 07 Request Date 06/19/20 )( Admission Accepts Yes )( Accepted Time 743 )( Accepted Date 06/19/20 Call Information agrees with eval Electronically Signed by Manuel Cortez DO on at 2002 RPT #:[id number] END OF REPORT 2020-06-19 04:25:00-00:00 [facility]) EMERGENCY PROVIDER REPORT REPORT#:[id number] REPORT STATUS: Signed DATE:06/19/20 TIME: 424 PATIENT: JORGE GOINS UNIT #: [id number] ROOM/BED: [place] [address] AGE: 34 SEX: M PCP PHYS: No Primary or Family Ph ysician SERVICE AUTHOR: Manuel Cortez DO * ALL edits or amendments must be made on the el [employer]/computer document * Manuel Cortez 06/19/20 0425: HPI-Chest Pain Under 40 Presentation Chief Complaint Chest pain, Back pain Sudden in Onset? Yes )( Migration/Movement None Risk-Chest Pain Under 40 Risk Stratification )( Coronary Artery Disease Risk factors reviewed )( Pulmonary Embolism Risk factors reviewed Review of Systems Focused Review of Systems Constitutional Denies: Chills, Fever, Lethargy. Respiratory Denies: Cough, non-productive, Cough, productive , Shortness of breath. Cardiovascular Reports: Chest pain. Denies: Dyspnea on exertion , Edema, Orthopnea, Palpitations, Parox nocturnal dyspnea, Syncope. GI Denies: Abdominal pain, Diarrhea, Nausea, Vomiti ng. Musculoskeletal Denies: Back pain, Extremity pain. Skin Denies: Diaphoresis, Rash. Neurologic Denies: Change LOC, Dizziness, Focal weakness, H eadache, Numbness, Slurred speech. Psychiatric Denies: Anxiety, Depression. Past Medical History - Adult Stated Complaint DRY COUGH,TEMP 99.3 Allergies Coded Allergies: Iodine and Iodide Containing Produc (Severe, HIV ES 11/19/19) shellfish derived (Intermediate, RASH 11/19/19) Home Medications Active Scripts ASPIRIN EC (ECOTRIN) 81 MG PO DAILY 30 Days #30 TABS Prov: 05/10/19 CARVEDILOL (COREG) 25 MG PO BID MEALS 30 Days #60 TAB Prov: 05/10/19 ACETAMINOPHEN/CODEINE (TYLENOL WITH CODE INE #4 300/60 MG) 1 TAB PO Q6H PRN PRN PAIN 7 Days #20 TAB Prov: 05/10/19 ATORVASTATIN (LIPITOR) 20 MG PO BEDTIME 30 Days #30 TABS Prov: 11/23/19 LOSARTAN (COZAAR) 100 MG PO DAILY LOSARTAN (COZAAR) 100 MG PO DAILY #30 TAB Prov: 11/23/19 NIFEdipine CC (ADALAT CC) 90 MG PO Q12HR NIFEdipine CC (ADALAT CC) 90 MG PO Q12HR #60 TA B Prov: 11/23/19 HYDROCHLOROTHIAZIDE (HYDRODIURIL) 25 MG PO DAILY HYDROCHLOROTHIAZIDE (HYDRODIURIL) 25 MG PO THOMAS Y #30 TAB Prov: 11/23/19 Reported Medications ALBUTEROL (PROAIR HFA 90 MCG/ACT 8.5 GM) 2 PUFF INH RTQ6H PRN PRN SOB Past Medical History: Reports: Congestive heart failure, Hypertension. Additional Medical History type B dissection s/p TEVAR Past Surgical History: Reports: Cholecystectomy. Additional Surgical History TEVAR Family History: Reports: Diabetes, Hypertension. 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 Physical Exam Vital Signs Review of Vital Signs Reviewed Focused PE General/Const General/Const Awake, Alert, Well appearing Eyes Eyes PERRL MS Neck Neck Supple, Full range of motion, No s welling, Non-tender, No masses, No JVD Resp/Chest Respiratory/Chest Breath sounds NL, Breath soun ds = bilat, No respiratory distress, No rales, No rhonchi, No wheezing, No chest tenderness Cardiovascular Cardiovascular Heart rate NL, Regular rhythm, H eart sounds NL, No murmurs, Peripheral circulation NL, Pulses = bilaterally, No gross BP differential Abdomen/GI Abdomen/GI Soft, Non-tender, No guarding, No re bound MS Back Back Inspection NL, Non-tender, No CVA tenderne ss MS Lower Extrem Lower Ext/Pelvis/MS Inspection NL, No swelling, Non-tender, No erythema, No deformity, Neurologic intact, Vascular intact, N o edema Skin Skin Color NL, Warm, Dry, Turgor NL Neurologic Neurologic Oriented X3, Speech NL, No motor def icits, No sensory deficits Psychiatric Psychiatric Affect NL, Mood NL, Thought content NL Interpretation Diagnostics Lab Results Interpretation Results Laboratory Tests 06/19/20 0425: [Embedded Image Not Available] Laboratory Tests: 06/19 06/19 06/19 06/19 0439 0425 0425 0425 Chemistry Sodium (137 - 145 mmol/L) 135 L Potassium (3.4 - 5.0 mmol/L) 3.8 Chloride (98 - 107 mmol/L) 96 L Carbon Dioxide (22 - 30 mmol/L) 24 BUN (9 - 20 mg/dL) 32 H Creatinine (0.7 - 1.3 mg/dL) 1.7 H Glomerular Filtr Rate (>60) 60 Glucose (74 - 106 mg/dL) 105 Lactic Acid (0.7 - 2.0 mmol/L) 1.9 Calcium (8.4 - 10.2 mg/dL) 9.0 Total Bilirubin (0.2 - 1.3 mg/dL) 1.6 H Conjugated Bilirubin (0 - 0.3 mg/dL) 0 Unconjugated Bilirubin (0 - 1.1 mg/dL) 0.7 AST (15 - 46 U/L) 62 H ALT (0 - 34 U/L) 72 H Total Alk Phosphatase (38 - 126 U/L) 125 Rapid Troponin I (0.00 - 0.079 ng/mL) 0.07 Total Protein (6.3 - 8.2 g/dL) 8.3 H Albumin (3.5 - 5.0 g/dL) 4.1 Triglycerides (mg/dL) 102 Cholesterol (mg/dL) 117 LDL Cholesterol Measurd (32 - 99 mg/dL) 52.00 HDL Cholesterol (40 - 59 mg/dL) 27 L Coronary Risk Interp 4.33 Coagulation INR 1.6 PTT ([place]) (23.4 - 37.0 SECONDS) 30.5 PT Patient/Control Mix (9.2 - 12.1 SECONDS) 18. 3 H Hematology WBC (5.0 - 12.0 x10 3/uL) 6.9 RBC (4.70 - 6.10 x10 6/uL) 4.14 L Hgb (14.0 - 18.0 g/dL) 12.0 L Hct (37.0 - 49.0 %) 38.2 MCV (80 - 94 fL) 92 MCH (27 - 31 pg) 29.0 MCHC (33 - 37 g/dL) 31.4 L RDW (11.5 - 15.5 %) 15.9 H Plt Count (130 - 400 x10 3/uL) 422 H MPV (9.4 - 16.4 fL) 10.3 Neut % (Auto) (43 - 65 %) 80.3 H Lymph % (Auto) (20.5 - 45.5 %) 12.5 L Citrus % (Auto) (5.5 - 11.7 %) 6.0 Eos % (Auto) (0.9 - 2.9 %) 0.4 L Baso % (Auto) (0.2 - 1.0 %) 0.4 Neut # (Auto) (2.2 - 4.8 x10 3/uL) 5.51 H Lymph # (Auto) (1.3 - 2.9 x10 3/uL) 0.86 L Citrus # (Auto) (0.3 - 0.8 x10 3/uL) 0.41 Eos # (Auto) (0.0 - 0.2 x10 3/uL) 0.03 Baso # (Auto) (0.0 - 0.1 x10 3/uL) 0.03 Immature Gran % (0.0 - 2.0 %) 0.4 Nucleated RBC % (0 - 1.0 %) 0.0 Serology SARS CoV-2 RNA Rapid RENU (NEGATIVE) Negative Microbiology: Date/Time Procedure - Status Source Growth 06/19 425 Blood Culture - RES BLOOD 06/19 425 Blood Culture - RES BLOOD Recent Impressions: CAT SCAN - CT ANGIO CHEST 06/19 529 Report Impression - Status: SIGNED Entered: 06/19/2020634 IMPRESSION: 1. Unchanged appearance of the thoracoabdominal aortic stent graft without evidence of aortic rupture or graft infe ction. 2. 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 [facility] external iliac artery stent is patent. 3. Multiple groundglass and nodular infiltrates throughout the bilateral lower lobes are compatible with pneumo omer. Impression By: Christianne Alfaro MD CAT SCAN - CTA ABD PEL W CONT 06/19 530 Report Impression - Status: SIGNED Entered: 06/19/2020634 IMPRESSION: 1. Unchanged appearance of the thoracoabdominal aortic stent graft without evidence of aortic rupture or graft infe ction. 2. 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 [facility] external iliac artery stent is patent. 3. Multiple groundglass and nodular infiltrates throughout the bilateral lower lobes are compatible with pneumo omer. Impression By: Christianne Alfaro MD RADIOLOGY - XR CHEST 1 V 06/19 0533 Report Impression - Status: SIGNED Entered: 06/19/2020609 IMPRESSION: 1. Stable cardiomegaly. 2. Right basilar atelectasis versus infiltrates. Impression By: Christianne Alfaro MD Patient Discharge Departure Vital Signs/Condition Vital Signs First Documented: Result Date Time Pulse Ox 100 06/19 417 B/P 226/162 06/19 417 B/P Mean 183 12/25 0417 O2 Delivery Room air 06/19 0417 Temp 99.4 06/19 0417 Pulse 102 06/19 0417 Resp 24 06/19 0417 O2 Flow Rate 2 06/19 0520 Last Documented: Result Date Time Pulse Ox 97 06/19 0620 B/P 227/153 06/19 0620 B/P Mean 177 06/19 0620 O2 Delivery Nasal cannula 06/19 06 O2 Flow Rate 2 06/19 620 Pulse 104 06/19 06 Resp 18 06/19 06 Temp 99.4 06/19 0417 All vital signs available at the time of this en try have been reviewed. [place] 06/19/20 0738: HPI-Chest Pain Under 40 General Initial Greet Date/Time 06/19/20413 Physical Exam Vital Signs Vital Signs First Documented: Result Date Time Pulse Ox 100 06/19 0417 B/P 226/162 06/19 0417 B/P Mean 183 06/19 0417 O2 Delivery Room air 06/19 0417 Temp 99.4 06/19 041 Pulse 102 06/19 0417 Resp 24 06/19 0417 O2 Flow Rate 2 06/19 0520 Last Documented: Result Date Time Pulse Ox 97 06/19 06 B/P 227/153 06/19 06 B/P Mean 177 06/19 06 O2 Delivery Nasal cannula 06/19 06 O2 Flow Rate 2 06/19 06 Pulse 104 06/19 06 Resp 18 06/19 0620 Temp 99.4 06/19 0417 Re-Evaluation MDM Free Text MDM Notes Free Text MDM Notes 06:30 -recievd in sign out. co cp cough , sob. b p very high. CTA negative for aortic pathology acutely. Possibly Covid related . Possibly due to cardiac etiology. Initially admitted to IMCU. Medicine t easiva, Dr. ng, discussed with vascular surgery Dr. cardoza 2/2 to previous ao rtic dissection. Prefers ICU admission for strict blood pressure cont rol. The medicine team is agreeable to upgrade to ICU. Medicine team ordered esmolol an d Cardene drip for blood pressure control. Dr. Olmedo informed by medicine team. ED Course Medication(s) Ordered Medication(s) Ordered: Anti-Infective Agents Sig/Ronan Start time Last Medication Dose Route Stop Time Status Admin Ceftriaxone Sodium 1,000 MG X1ED STA 06/19 0421 DC 06/19 Sterile Water 10 ML IV 06/19 0423 0434 Antihistamine Drugs Sig/Ronan Start time Last Medication Dose Route Stop Time Status Admin Diphenhydramine HCl 25 MG X1ED STA 06/19 0500 D C 06/19 IV 06/19 0501 0503 Cardiovascular Drugs Sig/Ronan Start time Last Medication Dose Route Stop Time Status Admin Labetalol HCl 10 MG X1ED STA 06/19 0709 DC 12/ 5 IV 06/19 0710 0757 Labetalol HCl 10 MG X1ED STA 06/19 0614 DC IV 06/19 0615 0627 Central Nervous System Agents Sig/Ronan Start time Last Medication Dose Route Stop Time Status Admin Lorazepam 1 MG X1ED STA 06/19 0708 DC 06/19 IV 06/19 0709 0756 Morphine Sulfate 4 MG X1ED STA 06/19 0551 DC IV 06/19 0552 0557 Diagnostic Agents Sig/Ronan Start time Last Medication Dose Route Stop Time Status Admin Iopamidol 100 ML .STK-MED ONE 06/19 0532 DC IV 06/19 0533 0532 Electrolytic, Caloric, And Camila Sig/Ronan Start time Last Medication Dose Route Stop Time Status Admin Sodium Chloride 5 ML Q12HR 06/19 0900 DC IV 06/19 1346 Sodium Chloride 5 ML ASDIR PRN 06/19 0800 DC IV 06/19 1346 Sodium Chloride 10 ML ASDIR PRN 06/19 0800 DC IV 06/19 1346 Sodium Chloride 250 ML ASDIR PRN 06/19 0800 DC IV 06/19 1346 Gastrointestinal Drugs Sig/Ronan Start time Last Medication Dose Route Stop Time Status Admin Ondansetron HCl 4 MG Q4H PRN PRN 06/19 0747 DC IV 06/19 1346 Ondansetron HCl 4 MG X1ED STA 06/19 0455 DC IV 06/19 0456 0503 Hormones And Synthetic Substit Sig/Ronan Start time Last Medication Dose Route Stop Time Status Admin Methylprednisolone 125 MG X1ED STA 06/19 0500 D C 06/19 Sodium Succinate IV 06/19 0501 0504 Patient Discharge Departure Clinical Impression Clinical Impression Primary Impression: COVID-19 Secondary Impressions: Accel erated essential hypertension, Multifocal pneumonia Disposition Decision Admit Admit Physician Name Andrew Salcedo MD Admit Physician Hospitalist Request Time 743 Request Date 06/19/20 )( Admission Accepts Yes )( Accepted Time 743 )( Accepted Date 06/19/20 Call Information agrees with ray Electronically Signed by Manuel Cortez DO on at 2003 at 0801 RPT #:[id number] END OF REPORT 2020-03-02 17:02:00-00:[address] [facility] ([facility]) Discharge Summary REPORT#:[id number] REPORT STATUS: Signed DATE:03/02/20 TIME: 170 PATIENT: JORGE GOINS UNIT #: [id number] ROOM/BED: [address] : 86 AGE: 34 SEX: M ATTEND: Harrison England MD ADM AUTHOR: Riky Rich NP * ALL edits or amendments must be made on the el [employer]/computer document * General Information Date of admission: Observation Start Date: Date of admission: 02/27/20 Discharge date: 03/02/20 (left AMA, not discharg ed) Admission diagnosis: AAA with endo leak s/p AAA s tent, hypertensive urgency, acute on chronic kidney disease, CHF exacerbation, ? tooth abcess, back pain Discharge diagnosis: This is a 32 y/o male with P MH of Seizure, non-compliance, depression, and hx of suicidal ideation. Patient presented to the hospital X 2 for c/o seizures, his symptoms had resolved and he left AMA, l ater he was brought back in by EMS for seizure activity X 3. He was stablized and transferred to the floor. This am he was noted having ongoing ton ic/clonic seizure like activity and upgraded to CV/ Neuro ICU. He was noted with an infiltrated IV, and ongoing seizures. A peripheral IV was placed emergently and then he was emergently intubated for airway protection. Temporary IV access w as lost again, all periperhals started quickly deteriated and a central line was placed . He was given an additional gram of keppra IVPB and is now on vent. Hospital course: This is a 34 y/o male with PMH of HTN, CHF, Obes ity, non-compliance and is recently s/p AAA repair. Patient reports he was released from [facility] this last Monday s/p AAA repair. Félix nt reports he has been having low back pain and tooth pain since his release from the hospital. Last night the pain became unbearable and p atient called EMS. Patient reports he was unable to purchase his BP medications d/t [place]. On EMS ar rival he was noted with BP of 240/120. He was brought to E D for further evaluation and treatment. He was then transferred up to CV/Neuro ICU for BP management and Vascular surgery evaluation. Repeat imaging w as relatively unchanged, no intervention at present. This am patient decided t le ave AMA despite warnings of potential injury or even . Patient then left AMA Electronically Signed by Riky Rich NP on at 1713 RPT #:[id number] END OF REPORT 2020-03-02 17:02:00-00:[address] [facility] ([facility]) Discharge Summary REPORT#:[id number] REPORT STATUS: Signed DATE:03/02/20 TIME: 1702 PATIENT: JORGE GOINS UNIT #: [id number] ROOM/BED: [address] : 86 AGE: 34 SEX: M ATTEND: Harrison England MD ADM AUTHOR: Riky Rich NP * ALL edits or amendments must be made on the el [employer]/computer document * See Addendum General Information Date of admission: Observation Start Date: Date of admission: 02/27/20 Discharge date: 03/02/20 (left AMA, not discharg ed) Admission diagnosis: AAA with endo leak s/p AAA s tent, hypertensive urgency, acute on chronic kidney disease, CHF exacerbation, ? tooth abcess, back pain Discharge diagnosis: This is a 32 y/o male with P MH of Seizure, non-compliance, depression, and hx of suicidal ideation. Patient presented to the hospital X 2 for c/o seizures, his symptoms had resolved and he left AMA, l ater he was brought back in by EMS for seizure activity X 3. He was stablized and transferred to the floor. This am he was noted having ongoing ton ic/clonic seizure like activity and upgraded to CV/ Neuro ICU. He was noted with an infiltrated IV, and ongoing seizures. A peripheral IV was placed emergently and then he was emergently intubated for airway protection. Temporary IV access w as lost again, all periperhals started quickly deteriated and a central line was placed . He was given an additional gram of keppra IVPB and is now on vent. Hospital course: This is a 34 y/o male with PMH of HTN, CHF, Obes ity, non-compliance and is recently s/p AAA repair. Patient reports he was released from [facility] this last Monday s/p AAA repair. Félix nt reports he has been having low back pain and tooth pain since his release from the hospital. Last night the pain became unbearable and p atient called EMS. Patient reports he was unable to purchase his BP medications d/t [place]. On EMS ar rival he was noted with BP of 240/120. He was brought to E D for further evaluation and treatment. He was then transferred up to CV/Neuro ICU for BP management and Vascular surgery evaluation. Repeat imaging w as relatively unchanged, no intervention at present. This am patient decided t le ave AMA despite warnings of potential injury or even . Patient then left AMA Electronically Signed by Riky Rich NP on at 1713 Addendum 1: 03/03/20 0055 by Eyd Olmedo MD I personally pleaded with the patient to stay. Patient would not stay and left AMA. Electronically Signed by Edy Olmedo MD on 02/12 at 0055 RPT #:[id number] END OF REPORT 2020-03-02 13:54:00-00:[address] [facility] ([facility]) Cardiology Progress Note REPORT#:[id number] REPORT STATUS: Signed DATE:03/02/20 TIME: 1354 PATIENT: JORGE GOINS UNIT #: [id number] ROOM/BED: [address] : 86 AGE: 34 SEX: M ATTEND: Harrison England MD ADM AUTHOR: Dat Stahl DO * ALL edits or amendments must be made on the el [employer]/computer document * Subjective Free Text Subj Notes Free Text Subj Notes: cardene restarted overnight per nursing staff patient leaving AMA - does not want to stay here any longer denies any chest pain, shortness of breath or ba ck pain Objective General VS/I O: 24 hour I O ending at 0700: 03/02 0700 03/01 1900 Intake Total 1297.00 Output Total 1200 500 Balance -1200 797.00 Intake, IV 297.00 Intake, Oral 1000 Number 1 Bowel Movements Number Voids 1 Output, Urine 1200 500 Vital Signs: Date Time Temp Pulse Resp B/P B/P Pulse O2 O2 F low FiO2 Mean Ox Delivery Rate 03/02 0800 36.7 Room air 03/02 0200 61 17 148/79 107 94 09/07 0130 62 16 146/77 105 94 09/07 0102 36.5 09/07 0101 69 19 154/77 107 96 09/07 0100 71 28 151/81 111 95 09/07 0030 62 15 144/77 104 95 09/07 0000 60 16 142/75 101 95 09/06 2330 65 21 149/80 108 96 09/06 2300 64 17 144/76 103 94 09/06 2230 59 16 142/76 101 94 09/06 2200 59 17 142/76 101 94 09/06 2145 59 18 95 09/06 2130 67 22 153/80 108 96 09/06 2121 60 21 143/76 100 96 09/06 2103 36.6 09/06 2100 64 21 150/82 110 96 09/06 2038 71 29 132/76 97 95 09/06 1952 70 31 122/76 94 95 09/06 1900 63 29 130/73 96 94 09/06 1800 62 22 127/74 95 94 09/06 1701 68 41 126/70 91 95 09/06 1600 36.3 Room air 09/06 1600 61 18 109/68 84 93 09/06 1530 64 118/69 88 94 09/06 1500 66 118/71 90 94 09/06 1430 69 127/73 94 95 09/06 1403 77 124/72 93 95 Patient Weight Weight (lb): 236 Weight (oz): 5.37 Weight (kg): 107.200 Physical Exam General appearance: alert, awake, oriented Head/Eyes: atraumatic, EOMI, normal conjunctiva/ sclera, PERRL ENT: moist mucosal membranes, normal nose Neck: non-tender, supple/no meningismus Cardiovascular: CV assessment: regular rate and rhythm, no murm ur Respiratory: clear to auscultation, no distress Abdomen: soft, non-tender, normal bowel sounds, no guarding Upper extremity: UE assessment: normal capillary refill, normal temperature, no edema Lower extremity: LE assessment: normal capillary refill, normal temperature, no edema Musculoskeletal: full range of motion, normal in spection 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, oriented X 3 Skin: dry, intact Diagnosis, Assessment Plan Free Text DxA P Notes Free Text DxA P Notes: 1. Hypertensive urgency - cont labetalol 300mg q8hrs , hydralazine 100mg BID, - cont nifdepine - cont clonidine - Lisinopril 10mg PO QD - goal BP < 120 systolic given disssection, idea lly < 110mmHg 2. Type B dissection s/p TEVAR - recent TEVAR at OSH 01/2020, now with apparent type 2 endoleak starting at level of diaphragm continuing to distal abdomina l aorta - vascular surgery following, appreciate recomme ndations 3. Chronic diastolic HF - echo with normal LVEF, grade 1 diastolic dysfu nction - resume PO lasix 40mg Daily 4. JENNIFER - improved Patient leaving against medical advice - informe d of potential complications including expanding dissection, HI, strok even d eath. Patient expressed understanding but still wants to leave. Advised to obtain prescriptions from pharmacy and take meds as pr escribed. Follow up with [facility] syrup [facility] as outpatient. Reports he was told gets 4 free visits from when he was discharged from [facility] so is going to go f/u in that clinic where first few visits are free. Electronically Signed by Dat Sthal 03/02/20 at 1357 RPT #:[id number] END OF REPORT 2020-03-01 16:50:00-00:[address] [facility] ([facility]) Critical Care Progress Note REPORT#:[id number] REPORT STATUS: Signed DATE:03/01/20 TIME: 1650 PATIENT: JORGE GOINS UNIT #: [id number] ROOM/BED: [address] : 86 AGE: 34 SEX: M ATTEND: Harrison England MD ADM AUTHOR: Papi England MD * ALL edits or amendments must be made on the [employer]/computer document * Subjective Chief Complaint: BP stable Review of Systems ROS Constitutional: Denies: chills, fatigue, fev er, generalized weakness, lethargy, malaise, recent wt loss, other. Skin: Denies: abrasion, bruising, contusion, diaphores is, ecchymosis, itching, laceration, rash, swelling, other. Respiratory: Denies: non productive cough, SOB. Cardiovascular: Denies: chest pain, palpitations. GI: Denies: abdominal pain. Musculoskeletal: Denies: lumbar pain. All systems rev neg: except as marked Objective General VS/I O Last Documented: Result Date Time O2 Delivery Room air 03/01 1600 Temp 36.3 03/01 1600 Pulse Ox 91 03/01 0530 B/P 135/71 03/01 0530 B/P Mean 97 03/01 0530 Pulse 68 03/01 0530 Resp 21 03/01 0530 24 hour I O ending at 0700: 03/01 0700 02/28 1900 Intake Total 1155.00 Output Total 700 1930 Balance -700 -775.00 Intake, IV 705.00 Intake, Oral 450 Number 1 Incontinent Voids Output, Urine 700 1930 Patient Weight Weight (lb): 236 Weight (oz): 5.37 Weight (kg): 107.200 Medications: Active Meds + DC'd Last 24 Hrs Lisinopril 10 MG DAILY PO Clonidine HCl 0.2 MG Q8H PO (DC) Clonidine HCl 0.3 MG Q8H PO Iopamidol 100 ML .STK-MED ONE IV (DC) Diphenhydramine HCl 50 MG ASDIR PO (CKD) Prednisone 50 MG ASDIR PO (CKD) Prednisone 50 MG ASDIR PO (DC) Hydralazine HCl 100 MG Q8H PO Labetalol HCl 300 MG Q8HR PO Hydrocodone Bitart/Acetaminophen 1 TAB Q4HR PO Morphine Sulfate 2 MG Q4H PRN PRN IV Clonidine HCl 0.1 MG Q8H PO (DC) Terazosin HCl 1 MG BEDTIME PO Clonidine HCl 0.1 MG Q8H PRN PRN PO Atorvastatin Calcium 20 MG BEDTIME PO Mupirocin 1 APPLIC BID NASAL Nifedipine 90 MG Q12HR PO (CKD) Docusate Sodium 100 MG BID PO Polyethylene Glycol 1 PKT DAILY PO (CKD) Bisacodyl 10 MG DAILY PRN PRN RECTAL Magnesium Citrate 150 ML DAILY PRN PRN PO Piperacillin Sod/Tazobactam Sod 3.375 GM Q8H IV Sodium Chloride 100 ML Acetaminophen 650 MG Q4H PRN PRN PO Ondansetron HCl 4 MG Q4H PRN PRN IV Perflutren Lipid Microsphere DIRECTED ONCE PRN IV Sodium Chloride DIRECTED ONCE PRN IV Sodium Chloride 5 ML ONCE PRN IV Labetalol HCl 10 MG Q1H PRN PRN IV Hydralazine HCl 20 MG Q4H PRN PRN IV Nicardipine HCl 250 ML TITRATE IV Physical Exam General appearance: alert, awake Head/Eyes: PERRLA, EOMI Neck: no JVD, no lymphadenopathy Cardiovascular: no murmur, no rub, no gallop Respiratory/Chest: symmetric expansion, no distr ess, no tenderness Abdomen: soft, non-tender, no distention, no gua rding Extremities: upper extremities pulse, lower extr emities pulse, no pedal edema Musculoskeletal: full range of motion 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, oriented X 3 Skin: normal color, normal temperature Results Findings/Data: Laboratory Tests 03/01/20228: [Embedded Image Not Available] Laboratory Tests 03/01 229 Chemistry Sodium (137 - 145 mmol/L) 141 Potassium (3.4 - 5.0 mmol/L) 4.3 Chloride (98 - 107 mmol/L) 112 H Carbon Dioxide (22 - 30 mmol/L) 19 L BUN (9 - 20 mg/dL) 12 Creatinine (0.7 - 1.3 mg/dL) 1.2 Glomerular Filtr Rate (>60) 90 Glucose (74 - 106 mg/dL) 145 H Calcium (8.4 - 10.2 mg/dL) 8.1 L Laboratory Tests 03/01 229 Hematology WBC (5.0 - 12.0 x10 3/uL) 4.3 L RBC (4.70 - 6.10 x10 6/uL) 3.92 L Hgb (14.0 - 18.0 g/dL) 11.0 L Hct (37.0 - 49.0 %) 35.8 L MCV (80 - 94 fL) 91 MCH (27 - 31 pg) 28.1 MCHC (33 - 37 g/dL) 30.7 L RDW (11.5 - 15.5 %) 14.8 Plt Count (130 - 400 x10 3/uL) 274 MPV (9.4 - 16.4 fL) 9.9 Neut % (Auto) (43 - 65 %) 89.4 H Lymph % (Auto) (20.5 - 45.5 %) 7.6 L Citrus % (Auto) (5.5 - 11.7 %) 2.5 L Eos % (Auto) (0.9 - 2.9 %) 0.0 L Baso % (Auto) (0.2 - 1.0 %) 0.0 L Neut # (Auto) (2.2 - 4.8 x10 3/uL) 3.88 Lymph # (Auto) (1.3 - 2.9 x10 3/uL) 0.33 L Citrus # (Auto) (0.3 - 0.8 x10 3/uL) 0.11 L Eos # (Auto) (0.0 - 0.2 x10 3/uL) 0.00 Baso # (Auto) (0.0 - 0.1 x10 3/uL) 0.00 Immature Gran % (0.0 - 2.0 %) 0.5 Nucleated RBC % (0 - 1.0 %) 0.0 Radiology data Recent Impressions: CAT SCAN - CTA ABD PEL W CONT 03/01 410 Report Impression - Status: SIGNED Entered: 03/01/2020912 IMPRESSION: 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 Improving left retroperitoneal fluid/hemorrhage. Small pericardial effusion. Other findings as above. Impression By: Colton - Christopher Ramires MD Diagnosis, Assessment Plan Free text A P: Assessement/Plan: 1. AAA - recent placement of AAA stent d/t complex AAA - reports back pain since discharge on Monday - came back with back pain - EMS notified, brought to ED -endovascular leak on ct done today vascular surgery follow up 2. Hypertensive emergency - off cardene stbale on po medication 3. Acute on chronic kidney disease estimated sta ge II - stable 4. CHF exacerbation - compensated 5. possible tooth abcess -abx 6. Back pain - back pain since release from [facility] on Mon - found to have Endovascular leak starting at ap px level of diaphragms - CV surgery on board - repeat CT anurysm protocol today and reevaluat e 7. GI prophylaxis - famotidine 8. DVT prophylaxis - SCDs - no AC/AP d/t possible endoleak d/c plan vascular plan at 1815 RPT #:[id number] END OF REPORT 2020-03-01 12:20:00-00:00 [facility]) Cardiology Progress Note REPORT#:[id number] REPORT STATUS: Signed DATE:03/01/20 TIME: 1220 PATIENT: JORGE GOINS UNIT #: [id number] ROOM/BED: [address] : 86 AGE: 34 SEX: M ATTEND: Harrison England MD ADM AUTHOR: Giancarlo Phan MD * ALL edits or amendments must be made on the el [employer]/computer document * Subjective Free Text Subj Notes Free Text Subj Notes: Patient states that he feel well. He denies any chest pain or sob. Otherwise no other acute events. Objective General VS/I O: 24 hour I O ending at 0700: 03/01 0700 09 1900 Intake Total 1155.00 Output Total 700 1930 Balance -700 -775.00 Intake, IV 705.00 Intake, Oral 450 Number 1 Incontinent Voids Output, Urine 700 1930 Vital Signs: Date Time Temp Pulse Resp B/P B/P Pulse O2 O2 F low FiO2 Mean Ox Delivery Rate 09/06 0800 37.0 Room air 09/06 0530 68 21 135/71 97 91 09/06 0500 70 24 136/73 97 93 09/06 0440 72 28 134/66 95 94 09/06 0426 37.1 09/06 0417 73 24 146/72 100 93 09/06 0400 134/71 96 09/06 0358 135/71 96 09/06 0334 71 27 139/71 97 96 09/06 0245 75 30 95 09/06 0230 72 27 139/63 90 94 09/06 0215 69 23 141/65 94 95 09/06 0200 71 18 142/75 101 94 09/06 0145 71 27 135/74 98 95 09/06 0130 70 24 143/74 100 95 09/06 0124 71 24 141/77 101 95 09/06 0115 70 25 146/76 101 95 09/06 0103 37.1 09/06 0100 73 26 149/74 103 94 09/06 0045 68 21 142/74 100 92 09/06 0030 66 21 139/72 99 93 09/06 0015 67 21 136/70 96 92 09/06 0000 71 21 143/72 100 92 09/05 2233 74 25 93 09/05 2230 73 26 133/75 96 93 09/05 2215 75 26 140/73 101 95 09/05 2200 74 26 131/67 92 95 09/05 2145 76 31 138/71 96 95 09/05 2130 77 27 137/81 103 97 09/05 2115 78 30 133/71 95 96 09/05 2112 78 28 133/76 102 95 09/05 2100 82 26 148/100 118 94 09/05 5 76 27 132/69 93 94 09/05 3 36.9 09/05 2029 68 136/69 94 92 09/05 2014 76 136/72 95 91 09/05 1945 80 23 127/74 95 95 09/05 1930 77 26 131/65 90 96 09/05 1915 77 26 127/62 86 96 09/05 1900 84 31 134/68 95 94 09/05 1845 75 125/67 87 96 09/05 1830 75 24 129/67 91 97 09/05 1815 74 19 128/65 88 97 09/05 1800 75 28 128/64 89 98 09/05 1745 74 27 121/69 88 97 09/05 1731 75 25 125/67 87 96 09/05 1715 73 24 128/74 93 97 09/05 1700 75 129/67 90 97 09/05 1645 74 28 130/67 91 97 09/05 1616 75 23 97 09/05 1615 74 10 126/60 87 96 09/05 1600 37.6 09/05 1600 79 19 139/64 88 97 09/05 1545 80 27 140/68 95 96 09/05 1530 82 26 143/71 98 96 09/05 1515 78 35 146/69 99 95 09/05 1500 76 25 144/67 97 93 09/05 1445 78 23 141/65 94 95 09/05 1430 74 25 140/71 94 95 09/05 1415 79 27 140/66 96 95 09/05 1400 72 24 148/71 101 94 09/05 1345 70 22 147/73 100 93 09/05 1330 72 21 143/70 99 93 09/05 1315 69 21 142/70 97 92 09/05 1300 71 19 147/70 101 91 09/05 1245 74 25 148/69 101 94 Patient Weight Weight (lb): 236 Weight (oz): 5.37 Weight (kg): 107.200 Physical Exam Head/Eyes: atraumatic, clear cornea, EOMI, brooklynn l conjunctiva/sclera, normocephalic, PERRL, PERRLA ENT: normal nose, normal pharynx Neck: full range of motion, non-tender, normal thyroid, supple/no meningismus, no bruit/NL carotids, no JVD, no lymphadenopathy , no masses or swelling Cardiovascular: CV assessment: regular rate and rhythm Respiratory: clear to auscultation, no distress Abdomen: non-tender, normal bowel sounds , no distention, no guarding, no mass/ organomegaly, no pulsatile mass, no rebound Upper extremity: UE assessment: normal capillary refill, no timur a Lower extremity: LE assessment: normal capillary refill, no timur a Musculoskeletal: full range of motion, normal in spection 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 Hypertensive urgency - increase labetalol 300mg q8hrs , hydralazine 1 00mg BID, - cont nifdepine - cont clonidine - Lisinopril 10mg PO QD - cont to wean nicardipine as tolerated - goal BP < 120 systolic given disssection, idea lly < 110mmHg 2. Type B dissection s/p TEVAR - recent TEVAR at OSH 01/2020, now with apparent type 2 endoleak starting at level of diaphragm continuing to distal abdomina l aorta - vascular surgery following, appreciate recomme ndations 3. Chronic diastolic HF - echo with normal LVEF, grade 1 diastolic dysfu nction - resume PO lasix 40mg Daily 4. CKD stage 3 - improving Thank you for consultation. Will follow. Please call if quesitons [facility] Cardiology Electronically Signed by Giancarlo Phan MD on 12/13 at 1233 RPT #:[id number] END OF REPORT 2020-02-29 13:23:00-00:00 [facility] Critical Care Progress Note REPORT#:[id number] REPORT STATUS: Signed DATE:02/29/20 TIME: 1323 PATIENT: JORGE GOINS UNIT #: [id number] ROOM/BED: [address] : 86 AGE: 34 SEX: M ATTEND: Harrison England MD ADM AUTHOR: Lorrie Khanna MD R1 * ALL edits or amendments must be made on the el [employer]/computer document * Subjective Chief Complaint: left upper extremity pain and edema Review of Systems ROS Constitutional: Denies: chills, fatigue, fev er, generalized weakness, lethargy, malaise, recent wt loss, other. Skin: Denies: abrasion, bruising, contusion, diaphores is, ecchymosis, itching, laceration, rash, swelling, other. Respiratory: Denies: non productive cough, SOB. Cardiovascular: Denies: chest pain, palpitations. GI: Denies: abdominal pain. Musculoskeletal: Denies: lumbar pain. All systems rev neg: except as marked Objective General VS/I O Last Documented: Result Date Time Pulse Ox 96 02/28 1145 B/P 141/68 02/28 1145 B/P Mean 96 02/28 1145 Pulse 78 02/28 1145 Resp 25 02/28 1130 Temp 37.1 02/28 0800 O2 Delivery Room air 02/26 0654 24 hour I O ending at 0700: 02/28 0700 02/27 1900 Intake Total 2200.00 2810.00 Output Total 1800 Balance 400.00 2810.00 Intake, IV 1400.00 2660.00 Intake, Oral 800 150 Number Voids 6 Output, Urine 1800 Patient Weight Weight (lb): 236 Weight (oz): 5.37 Weight (kg): 107.200 Medications: Active Meds + DC'd Last 24 Hrs Hydralazine HCl 100 MG Q8H PO Labetalol HCl 300 MG Q8HR PO Furosemide 40 MG ONCE ONE IV (UNV) Hydrocodone Bitart/Acetaminophen 1 TAB Q4HR PO Morphine Sulfate 2 MG Q4H PRN PRN IV Clonidine HCl 0.1 MG Q8H PO Famotidine 20 MG Q12HR PO Terazosin HCl 1 MG BEDTIME PO Hydralazine HCl 100 MG Q12H PO (DC) Labetalol HCl 200 MG Q12HR PO (DC) Clonidine HCl 0.1 MG Q8H PRN PRN PO Atorvastatin Calcium 20 MG BEDTIME PO Mupirocin 1 APPLIC BID NASAL Nifedipine 90 MG Q12HR PO (CKD) Docusate Sodium 100 MG BID PO Polyethylene Glycol 1 PKT DAILY PO (CKD) Bisacodyl 10 MG DAILY PRN PRN RECTAL Magnesium Citrate 150 ML DAILY PRN PRN PO Piperacillin Sod/Tazobactam Sod 3.375 GM Q8H IV Sodium Chloride 100 ML Acetaminophen 650 MG Q4H PRN PRN PO Ondansetron HCl 4 MG Q4H PRN PRN IV Perflutren Lipid Microsphere DIRECTED ONCE PRN IV Sodium Chloride DIRECTED ONCE PRN IV Sodium Chloride 5 ML ONCE PRN IV Fentanyl Citrate 25 MCG Q2H PRN PRN IV (DC) Labetalol HCl 10 MG Q1H PRN PRN IV Esmolol HCl 250 ML TITRATE IV (DC) Hydralazine HCl 20 MG Q4H PRN PRN IV Nicardipine HCl 250 ML TITRATE IV Physical Exam General appearance: alert, awake, oriented Head/Eyes: PERRLA, EOMI Neck: no JVD, no lymphadenopathy Cardiovascular: no murmur, no rub, no gallop Respiratory/Chest: symmetric expansion, no distr ess, no tenderness Abdomen: soft, non-tender, no distention, no gua rding Extremities: upper extremities pulse, lower extr emities pulse, no pedal edema Musculoskeletal: full range of motion 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, oriented X 3 Skin: normal color, normal temperature Results Findings/Data: Laboratory Tests 02/29/20224: [Embedded Image Not Available] Laboratory Tests 02/28 225 Chemistry Sodium (137 - 145 mmol/L) 135 L Potassium (3.4 - 5.0 mmol/L) 4.2 Chloride (98 - 107 mmol/L) 112 H Carbon Dioxide (22 - 30 mmol/L) 18 L BUN (9 - 20 mg/dL) 12 Creatinine (0.7 - 1.3 mg/dL) 1.2 Glomerular Filtr Rate (>60) 90 Glucose (74 - 106 mg/dL) 106 Calcium (8.4 - 10.2 mg/dL) 7.9 L Laboratory Tests 02/28 225 Hematology WBC (5.0 - 12.0 x10 3/uL) 5.0 RBC (4.70 - 6.10 x10 6/uL) 3.82 L Hgb (14.0 - 18.0 g/dL) 10.8 L Hct (37.0 - 49.0 %) 34.6 L MCV (80 - 94 fL) 91 MCH (27 - 31 pg) 28.3 MCHC (33 - 37 g/dL) 31.2 L RDW (11.5 - 15.5 %) 14.7 Plt Count (130 - 400 x10 3/uL) 286 MPV (9.4 - 16.4 fL) 10.5 Neut % (Auto) (43 - 65 %) 70.8 H Lymph % (Auto) (20.5 - 45.5 %) 11.0 L Citrus % (Auto) (5.5 - 11.7 %) 15.2 H Eos % (Auto) (0.9 - 2.9 %) 2.0 Baso % (Auto) (0.2 - 1.0 %) 0.4 Neut # (Auto) (2.2 - 4.8 x10 3/uL) 3.55 Lymph # (Auto) (1.3 - 2.9 x10 3/uL) 0.55 L Citrus # (Auto) (0.3 - 0.8 x10 3/uL) 0.76 Eos # (Auto) (0.0 - 0.2 x10 3/uL) 0.10 Baso # (Auto) (0.0 - 0.1 x10 3/uL) 0.02 Immature Gran % (0.0 - 2.0 %) 0.6 Nucleated RBC % (0 - 1.0 %) 0.0 Microbiology: 02/26 1115 BLOOD: Blood Culture - RES 02/26 1115 BLOOD: Blood Culture - RES 02/26 0835 NASAL: MRSA Screen - RES Radiology data Recent Impressions: ULTRASOUND - DUP ABD/PEL/SC COMP 02/27 1550 Report Impression - Status: SIGNED Entered: 02/28/2020 1605 IMPRESSION: Normal renal to aortic ratios bilaterally Impression By: Vivian Waggoner MD Diagnosis, Assessment Plan Free text A P: Assessement/Plan: 1. AAA - recent placement of AAA stent d/t complex AAA - reports back pain since discharge on Monday - came back with back pain - EMS notified, brought to ED - found to have Endovascular leak starting at ap px level of diaphragms - CV surgery consulted - on cardene drip - SBP goal < 140 2. Hypertensive emergency - SBP 226/133 on arrival - reports not being able to afford meds after DC from hospital on Monday - on esmolol with BP parameter < 140 - added cardene, hydralazine, labetalol 3. Acute on chronic kidney disease estimated sta ge II - BUN/Cr 15/1.6 - GFR 64 - renal ultrasound 4. CHF exacerbation - Hx of CHF - bilateral LE 1+ edema - Echo on 11/19 50-54% EF and grade 1 diastolic d ysfunction - imaging noted with mild CHF - lasix 20 mg X 1 5. possible tooth abcess - reports tooth pain since Monday - T-max 103 - HR > 90 on arrival, likely d/t pain - RR > 20 - hypertensive - do not suspect septic shock - added zosyn - check echo r/o vegetation 6. Back pain - back pain since release from [facility] on Mon - found to have Endovascular leak starting at ap px level of diaphragms - CV surgery on board - repeat CT anurysm protocol today and reevaluat e 7. GI prophylaxis - famotidine 8. DVT prophylaxis - SCDs - no AC/AP d/t possible endoleak Continue to try to wean off cardene at 1338 RPT #:[id number] END OF REPORT 2020-02-29 13:23:00-00:[address] [facility] ([facility]) Critical Care Progress Note REPORT#:[id number] REPORT STATUS: Signed DATE:02/29/20 TIME: 1323 PATIENT: JORGE GOINS UNIT #: [id number] ROOM/BED: [address] : 86 AGE: 34 SEX: M ATTEND: Harrison England MD ADM AUTHOR: Lorrie Khanna MD R1 * ALL edits or amendments must be made on the rimidi/computer document * Lorrie Khanna 02/29/20 1323: Subjective Chief Complaint: left upper extremity pain and edema Review of Systems ROS Constitutional: Denies: chills, fatigue, fev er, generalized weakness, lethargy, malaise, recent wt loss, other. Skin: Denies: abrasion, bruising, contusion, diaphores is, ecchymosis, itching, laceration, rash, swelling, other. Respiratory: Denies: non productive cough, SOB. Cardiovascular: Denies: chest pain, palpitations. GI: Denies: abdominal pain. Musculoskeletal: Denies: lumbar pain. All systems rev neg: except as marked Objective General VS/I O Last Documented: Result Date Time Pulse Ox 96 02/28 1145 B/P 141/68 02/28 1145 B/P Mean 96 02/28 1145 Pulse 78 02/28 1145 Resp 25 02/28 1130 Temp 37.1 02/28 0800 O2 Delivery Room air 02/26 0654 24 hour I O ending at 0700: 02/28 0700 02/27 1900 Intake Total 2200.00 2810.00 Output Total 1800 Balance 400.00 2810.00 Intake, IV 1400.00 2660.00 Intake, Oral 800 150 Number Voids 6 Output, Urine 1800 Patient Weight Weight (lb): 236 Weight (oz): 5.37 Weight (kg): 107.200 Medications: Active Meds + DC'd Last 24 Hrs Hydralazine HCl 100 MG Q8H PO Labetalol HCl 300 MG Q8HR PO Furosemide 40 MG ONCE ONE IV (UNV) Hydrocodone Bitart/Acetaminophen 1 TAB Q4HR PO Morphine Sulfate 2 MG Q4H PRN PRN IV Clonidine HCl 0.1 MG Q8H PO Famotidine 20 MG Q12HR PO Terazosin HCl 1 MG BEDTIME PO Hydralazine HCl 100 MG Q12H PO (DC) Labetalol HCl 200 MG Q12HR PO (DC) Clonidine HCl 0.1 MG Q8H PRN PRN PO Atorvastatin Calcium 20 MG BEDTIME PO Mupirocin 1 APPLIC BID NASAL Nifedipine 90 MG Q12HR PO (CKD) Docusate Sodium 100 MG BID PO Polyethylene Glycol 1 PKT DAILY PO (CKD) Bisacodyl 10 MG DAILY PRN PRN RECTAL Magnesium Citrate 150 ML DAILY PRN PRN PO Piperacillin Sod/Tazobactam Sod 3.375 GM Q8H IV Sodium Chloride 100 ML Acetaminophen 650 MG Q4H PRN PRN PO Ondansetron HCl 4 MG Q4H PRN PRN IV Perflutren Lipid Microsphere DIRECTED ONCE PRN IV Sodium Chloride DIRECTED ONCE PRN IV Sodium Chloride 5 ML ONCE PRN IV Fentanyl Citrate 25 MCG Q2H PRN PRN IV (DC) Labetalol HCl 10 MG Q1H PRN PRN IV Esmolol HCl 250 ML TITRATE IV (DC) Hydralazine HCl 20 MG Q4H PRN PRN IV Nicardipine HCl 250 ML TITRATE IV Physical Exam General appearance: alert, awake, oriented Head/Eyes: PERRLA, EOMI Neck: no JVD, no lymphadenopathy Cardiovascular: no murmur, no rub, no gallop Respiratory/Chest: symmetric expansion, no distr ess, no tenderness Abdomen: soft, non-tender, no distention, no gua rding Extremities: upper extremities pulse, lower extr emities pulse, no pedal edema Musculoskeletal: full range of motion 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, oriented X 3 Skin: normal color, normal temperature Results Findings/Data: Laboratory Tests 02/29/20224: [Embedded Image Not Available] Laboratory Tests 02/28 225 Chemistry Sodium (137 - 145 mmol/L) 135 L Potassium (3.4 - 5.0 mmol/L) 4.2 Chloride (98 - 107 mmol/L) 112 H Carbon Dioxide (22 - 30 mmol/L) 18 L BUN (9 - 20 mg/dL) 12 Creatinine (0.7 - 1.3 mg/dL) 1.2 Glomerular Filtr Rate (>60) 90 Glucose (74 - 106 mg/dL) 106 Calcium (8.4 - 10.2 mg/dL) 7.9 L Laboratory Tests 02/28 225 Hematology WBC (5.0 - 12.0 x10 3/uL) 5.0 RBC (4.70 - 6.10 x10 6/uL) 3.82 L Hgb (14.0 - 18.0 g/dL) 10.8 L Hct (37.0 - 49.0 %) 34.6 L MCV (80 - 94 fL) 91 MCH (27 - 31 pg) 28.3 MCHC (33 - 37 g/dL) 31.2 L RDW (11.5 - 15.5 %) 14.7 Plt Count (130 - 400 x10 3/uL) 286 MPV (9.4 - 16.4 fL) 10.5 Neut % (Auto) (43 - 65 %) 70.8 H Lymph % (Auto) (20.5 - 45.5 %) 11.0 L Citrus % (Auto) (5.5 - 11.7 %) 15.2 H Eos % (Auto) (0.9 - 2.9 %) 2.0 Baso % (Auto) (0.2 - 1.0 %) 0.4 Neut # (Auto) (2.2 - 4.8 x10 3/uL) 3.55 Lymph # (Auto) (1.3 - 2.9 x10 3/uL) 0.55 L Citrus # (Auto) (0.3 - 0.8 x10 3/uL) 0.76 Eos # (Auto) (0.0 - 0.2 x10 3/uL) 0.10 Baso # (Auto) (0.0 - 0.1 x10 3/uL) 0.02 Immature Gran % (0.0 - 2.0 %) 0.6 Nucleated RBC % (0 - 1.0 %) 0.0 Microbiology: 02/26 1115 BLOOD: Blood Culture - RES 02/26 1115 BLOOD: Blood Culture - RES 02/26 0835 NASAL: MRSA Screen - RES Radiology data Recent Impressions: ULTRASOUND - DUP ABD/PEL/SC COMP 02/27 1550 Report Impression - Status: SIGNED Entered: 02/28/2020 1605 IMPRESSION: Normal renal to aortic ratios bilaterally Impression By: Vivian Waggoner MD Diagnosis, Assessment Plan Free text A P: Assessement/Plan: 1. AAA - recent placement of AAA stent d/t complex AAA - reports back pain since discharge on Monday - came back with back pain - EMS notified, brought to ED - found to have Endovascular leak starting at ap px level of diaphragms - CV surgery consulted - on cardene drip - SBP goal < 140 2. Hypertensive emergency - SBP 226/133 on arrival - reports not being able to afford meds after DC from hospital on Monday - on esmolol with BP parameter < 140 - added cardene, hydralazine, labetalol 3. Acute on chronic kidney disease estimated sta ge II - BUN/Cr 10/07.6 - GFR 64 - renal ultrasound 4. CHF exacerbation - Hx of CHF - bilateral LE 1+ edema - Echo on 11/19 50-54% EF and grade 1 diastolic d ysfunction - imaging noted with mild CHF - lasix 20 mg X 1 5. possible tooth abcess - reports tooth pain since Monday - T-max 103 - HR > 90 on arrival, likely d/t pain - RR > 20 - hypertensive - do not suspect septic shock - added zosyn - check echo r/o vegetation 6. Back pain - back pain since release from [facility] on Mon - found to have Endovascular leak starting at ap px level of diaphragms - CV surgery on board - repeat CT anurysm protocol today and reevaluat e 7. GI prophylaxis - famotidine 8. DVT prophylaxis - SCDs - no AC/AP d/t possible endoleak Continue to try to wean off cardene Papi England 02/29/20 1342: Attestations Attestation needed: teaching physician Teaching Physician Attestation F/U visit w/ resident: I saw the patient with the resident and . . . agree with the resident's findings and plan. doing well on cardene will monoitor at 1338 at 1342 RPT #:[id number] END OF REPORT 2020-02-29 12:05:00-00:[address] [facility] ([facility] Cardiology Progress Note REPORT#:[id number] REPORT STATUS: Signed DATE:02/29/20 TIME: 1205 PATIENT: JORGE GOISN UNIT #: [id number] ROOM/BED: [address] : [birth year] AGE: 34 SEX: M ATTEND: Harrison England MD ADM AUTHOR: Abhi Ortiz DO * ALL edits or amendments must be made on the rimidi/computer document * Subjective Free Text Subj Notes Free Text Subj Notes: doing okay. Off esmlol. On Cardene, Bps in the 1 40-160s. Objective General VS/I O: 24 hour I O ending at 0700: 02/28 0700 09 1900 Intake Total 2200.00 2810.00 Output Total 1800 Balance 400.00 2810.00 Intake, IV 1400.00 2660.00 Intake, Oral 800 150 Number Voids 6 Output, Urine 1800 Vital Signs: Date Time Temp Pulse Resp B/P B/P Pulse O2 O2 F low FiO2 Mean Ox Delivery Rate 02/28 1145 78 141/68 96 96 / 1130 76 25 145/70 99 95 09/05 1115 76 143/70 99 94 09/05 1100 76 147/72 102 95 09/05 1045 75 143/67 94 95 09/05 1030 75 151/65 100 95 09/05 1015 73 25 152/68 98 95 09/05 1000 74 23 149/67 96 95 09/05 0945 77 28 146/57 93 94 09/05 0930 77 29 144/65 94 93 09/05 0915 75 27 149/68 98 93 09/05 0900 75 23 153/70 101 93 09/05 0845 74 149/68 99 94 09/05 0830 76 150/72 100 96 09/05 0816 77 156/73 104 94 09/05 0800 98.8 09/05 0800 88 175/81 117 94 09/05 0745 77 162/74 106 93 09/05 0730 78 158/70 104 94 09/05 0715 78 157/74 106 94 09/05 0710 78 24 155/71 102 93 09/05 0708 78 26 154/72 103 94 09/05 0700 77 23 153/72 103 95 09/05 0650 79 26 153/75 108 95 09/05 0640 76 29 152/71 102 95 09/05 0630 74 26 153/72 103 95 09/05 0620 75 25 151/72 101 95 09/05 0610 74 23 148/73 101 96 09/05 0600 72 27 145/71 100 95 09/05 0550 73 25 147/72 99 95 09/05 0540 71 26 146/74 101 95 09/05 0530 71 25 137/70 98 95 09/05 0520 71 26 143/75 100 94 09/05 0513 72 27 135/72 97 93 09/05 0450 71 24 130/72 96 94 09/05 0440 70 26 132/75 97 94 09/05 0430 74 25 136/81 103 95 09/05 0420 70 26 128/75 97 95 09/05 0410 71 26 125/72 94 94 09/05 0400 97.5 09/05 0400 70 27 126/72 92 93 09/05 0354 72 28 119/73 91 92 09/05 0340 71 27 124/68 90 95 09/05 0320 71 26 126/72 94 95 09/05 0313 70 26 122/70 90 96 09/05 0300 71 25 127/73 93 93 09/05 0250 71 22 124/71 92 95 09/05 0240 70 24 126/74 95 95 09/05 0230 68 27 128/73 95 95 09/05 0220 70 26 125/72 93 96 09/05 0140 67 20 120/68 90 96 09/05 0130 66 23 128/73 94 93 09/05 0120 67 23 127/73 94 95 09/05 0110 68 23 126/69 91 95 09/05 0100 67 25 125/71 93 95 09/05 0050 66 25 128/74 95 95 09/05 0040 68 24 129/75 96 95 09/05 0030 66 25 123/71 92 94 09/05 0020 65 26 125/72 94 94 09/05 0010 65 25 121/70 90 96 09/05 0000 98.7 09/04 2340 65 25 134/72 97 93 09/04 2330 65 23 137/77 102 93 09/04 2320 66 23 127/75 96 94 09/04 2310 69 23 123/76 93 95 09/04 2300 65 21 127/77 97 94 09/04 2250 64 22 125/74 94 94 09/04 2240 64 22 130/74 96 94 09/04 2230 68 23 126/73 94 97 09/04 2220 64 20 131/75 98 96 09/04 2210 65 21 134/74 97 94 09/04 2200 66 24 138/73 98 94 09/04 2150 65 23 139/73 97 95 09/04 2140 66 22 143/74 103 94 09/04 2130 66 22 142/73 100 94 09/04 2120 66 22 152/77 107 95 09/04 2111 66 23 143/73 101 94 09/04 2100 66 23 155/71 102 96 09/04 2050 65 21 153/71 100 95 09/04 2040 65 23 161/73 105 95 09/04 2029 65 24 159/70 104 94 09/04 2019 66 24 167/76 109 95 09/04 2009 65 24 162/77 110 96 09/04 1999 66 24 155/70 100 95 09/04 1950 67 24 164/73 105 96 09/04 1945 98.8 09/04 1945 66 23 97 09/04 1940 66 21 177/77 111 95 09/04 1930 64 25 161/77 109 94 09/04 1920 65 25 159/79 110 95 09/04 1910 64 24 150/67 97 95 09/04 1900 64 23 157/67 101 95 09/04 1830 65 20 158/73 105 96 09/04 1820 64 22 148/72 100 96 09/04 1810 64 23 148/73 103 96 09/04 1800 64 22 150/71 102 98 09/04 1750 63 22 142/66 94 96 09/04 1740 65 22 148/70 100 96 09/04 1730 64 18 146/69 100 96 09/04 1720 64 23 143/70 99 95 09/04 1710 64 22 134/66 95 96 09/04 1700 65 18 157/76 109 95 09/04 1650 64 23 148/69 99 95 09/04 1640 63 22 136/65 93 95 09/04 1630 66 24 139/64 94 96 09/04 1624 65 18 97 09/04 1620 65 19 146/71 101 94 09/04 1615 65 22 96 09/04 1610 65 22 131/63 91 95 09/04 1605 65 27 134/61 88 95 09/04 1600 98.0 09/04 1600 64 22 95 09/04 1545 63 20 97 09/04 1540 64 21 158/84 108 94 09/04 1530 62 21 153/70 100 93 09/04 1520 66 21 139/63 90 96 09/04 1515 65 25 96 09/04 1510 64 23 135/62 89 96 09/04 1501 65 28 137/63 91 95 09/04 1500 67 26 94 09/04 1450 65 25 147/69 99 93 09/04 1445 65 27 96 09/04 1440 64 25 110/63 81 95 09/04 1430 63 22 145/62 89 94 09/04 1420 147/65 93 09/04 1415 62 21 95 09/04 1410 62 21 148/69 99 95 09/04 1400 64 22 139/67 96 96 09/04 1350 61 20 129/67 92 95 09/04 1345 61 20 96 09/04 1340 63 21 124/65 88 96 09/04 1330 64 19 142/60 95 95 09/04 1321 61 22 158/71 102 96 09/04 1315 62 21 97 09/04 1311 62 22 145/64 92 95 09/04 1300 64 19 151/63 96 97 09/04 1250 61 17 156/70 101 96 09/04 1245 61 18 97 09/04 1240 62 16 150/67 100 97 09/04 1230 60 17 148/70 100 98 09/04 1220 56 18 142/67 95 94 09/04 1215 56 17 94 09/04 1210 59 20 154/75 102 92 Patient Weight Weight (lb): 236 Weight (oz): 5.37 Weight (kg): 107.200 Medications: Active Meds + DC'd Last 24 Hrs Hydralazine HCl 100 MG Q8H PO Labetalol HCl 300 MG Q8HR PO (UNVr) Hydrocodone Bitart/Acetaminophen 1 TAB Q4HR PO Morphine Sulfate 2 MG Q4H PRN PRN IV Clonidine HCl 0.1 MG Q8H PO Famotidine 20 MG Q12HR PO Terazosin HCl 1 MG BEDTIME PO Hydralazine HCl 100 MG Q12H PO (DC) Labetalol HCl 200 MG Q12HR PO (DCr) Clonidine HCl 0.1 MG Q8H PRN PRN PO Atorvastatin Calcium 20 MG BEDTIME PO Mupirocin 1 APPLIC BID NASAL Nifedipine 90 MG Q12HR PO (CKD) Docusate Sodium 100 MG BID PO Polyethylene Glycol 1 PKT DAILY PO (CKD) Bisacodyl 10 MG DAILY PRN PRN RECTAL Magnesium Citrate 150 ML DAILY PRN PRN PO Carvedilol 25 MG BID MEALS PO (DC) Piperacillin Sod/Tazobactam Sod 3.375 GM Q8H IV Sodium Chloride 100 ML Acetaminophen 650 MG Q4H PRN PRN PO Ondansetron HCl 4 MG Q4H PRN PRN IV Perflutren Lipid Microsphere DIRECTED ONCE PRN IV Sodium Chloride DIRECTED ONCE PRN IV Sodium Chloride 5 ML ONCE PRN IV Fentanyl Citrate 25 MCG Q2H PRN PRN IV (DC) Labetalol HCl 10 MG Q1H PRN PRN IV Esmolol HCl 250 ML TITRATE IV (DCr) Hydralazine HCl 20 MG Q4H PRN PRN IV Nicardipine HCl 250 ML TITRATE IV Physical Exam General appearance: alert, awake Head/Eyes: atraumatic, clear cornea, EOMI, brooklynn l conjunctiva/sclera, normocephalic, PERRL, PERRLA ENT: normal nose, normal pharynx Neck: full range of motion, non-tender, normal thyroid, supple/no meningismus, no bruit/NL carotids, no JVD, no lymphadenopathy , no masses or swelling Cardiovascular: CV assessment: regular rate and rhythm Respiratory: clear to auscultation, no distress Abdomen: non-tender, normal bowel sounds , no distention, no guarding, no mass/ organomegaly, no pulsatile mass, no rebound Upper extremity: UE assessment: normal capillary refill, no timur a Lower extremity: LE assessment: normal capillary refill, no timur a Musculoskeletal: full range of motion, normal in spection 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, oriented X 3 Skin: dry, intact Lymphatics: axilla normal, inguinal normal, neck normal, no lymphadenopathy Psychiatry: normal judgment/insight, normal mood , no hallucinations Results Findings/Data: Laboratory Tests 02/28 225 Chemistry Sodium (137 - 145 mmol/L) 135 L Potassium (3.4 - 5.0 mmol/L) 4.2 Chloride (98 - 107 mmol/L) 112 H Carbon Dioxide (22 - 30 mmol/L) 18 L BUN (9 - 20 mg/dL) 12 Creatinine (0.7 - 1.3 mg/dL) 1.2 Glomerular Filtr Rate (>60) 90 Glucose (74 - 106 mg/dL) 106 Calcium (8.4 - 10.2 mg/dL) 7.9 L Laboratory Tests 02/28 225 Hematology WBC (5.0 - 12.0 x10 3/uL) 5.0 RBC (4.70 - 6.10 x10 6/uL) 3.82 L Hgb (14.0 - 18.0 g/dL) 10.8 L Hct (37.0 - 49.0 %) 34.6 L MCV (80 - 94 fL) 91 MCH (27 - 31 pg) 28.3 MCHC (33 - 37 g/dL) 31.2 L RDW (11.5 - 15.5 %) 14.7 Plt Count (130 - 400 x10 3/uL) 286 MPV (9.4 - 16.4 fL) 10.5 Neut % (Auto) (43 - 65 %) 70.8 H Lymph % (Auto) (20.5 - 45.5 %) 11.0 L Citrus % (Auto) (5.5 - 11.7 %) 15.2 H Eos % (Auto) (0.9 - 2.9 %) 2.0 Baso % (Auto) (0.2 - 1.0 %) 0.4 Neut # (Auto) (2.2 - 4.8 x10 3/uL) 3.55 Lymph # (Auto) (1.3 - 2.9 x10 3/uL) 0.55 L Citrus # (Auto) (0.3 - 0.8 x10 3/uL) 0.76 Eos # (Auto) (0.0 - 0.2 x10 3/uL) 0.10 Baso # (Auto) (0.0 - 0.1 x10 3/uL) 0.02 Immature Gran % (0.0 - 2.0 %) 0.6 Nucleated RBC % (0 - 1.0 %) 0.0 Radiology data: Recent Impressions: ULTRASOUND - DUP ABD/PEL/SC COMP 02/27 1550 Report Impression - Status: SIGNED Entered: 02/28/2020 1605 IMPRESSION: Normal renal to aortic ratios bilaterally Impression By: Vivian Waggoner MD Results: labs reviewed, vital signs stable Diagnosis, Assessment Plan Free Text DxA P Notes Free Text DxA P Notes: 1. Hypertensive urgency - increase labetalol 300mg q8hrs , hydralazine 1 00mg BID, - cont nifdepine - cont clonidine - add ACEI/ARB after Cr stabilizes -off esmolol and cont to wean nicardipine as colleen erated - goal BP < 120 systolic given disssection, idea lly < 110mmHg 2. Type B dissection s/p TEVAR - recent TEVAR at OSH 01/2020, now with apparent type 2 endoleak starting at level of diaphragm continuing to distal abdomina l aorta - vascular surgery following , appreciate recommendations - may need intervention given endoleak - triple phase ct pending 3. Chronic diastolic HF - echo with normal LVEF, grade 1 diastolic dysfu nction - resume PO lasix 40mg Daily 4. CKD stage 3 - appears to be chronic, likely secondary to [place] ontrolled HTN Thank you for consultation. Will follow. Please call if yues [facility] Electronically Signed by Abhi Ortiz DO on 02/28 at 1209 RPT #:[id number] END OF REPORT 2020-02-28 22:38:00-00:[address] [facility] ([facility]) Critical Care Progress Note REPORT#:[id number] REPORT STATUS: Signed DATE:02/28/20 TIME: 2237 PATIENT: JORGE GOINS UNIT #: [id number] ROOM/BED: [address] : [birth year] AGE: 34 SEX: M ATTEND: Harrison England MD ADM AUTHOR: Edy Olmedo MD * ALL edits or amendments must be made on the el [employer]/computer document * Subjective Chief Complaint: Chest pain Comments: Stil on cardene Review of Systems ROS Constitutional: Denies: chills, fatigue, fev er, generalized weakness, lethargy, malaise, recent wt loss, other. Skin: Denies: abrasion, bruising, contusion, diaphores is, ecchymosis, itching, laceration, rash, swelling, other. All systems rev neg: except as marked Objective Physical Exam General appearance: alert, awake, oriented Head/Eyes: PERRLA, EOMI Neck: no JVD, no lymphadenopathy Cardiovascular: no murmur, no rub, no gallop Respiratory/Chest: symmetric expansion, no distr ess, no tenderness Abdomen: soft, non-tender, no distention, no gua rding Extremities: upper extremities pulse, no pedal e benton Skin: normal color, normal temperature Results Findings/Data: Reviewed and noted as per chart Radiology data Recent Impressions: ULTRASOUND - DUP ABD/PEL/SC COMP 02/27 1550 Report Impression - Status: SIGNED Entered: 02/28/2020 1605 IMPRESSION: Normal renal to aortic ratios bilaterally Impression By: LourdesAGVivian Mcghee MD Diagnosis, Assessment Plan Free text A P: Assessement/Plan: 1. AAA - recent placement of AAA stent d/t complex AAA - reports back pain since discharge on Monday - worsened last night - EMS notified, brought to ED - found to have Endovascular leak starting at ap px level of diaphragms - CV surgery consulted - on esmolol drip - SBP goal < 140 2. Hypertensive emergency - SBP 226/133 on arrival - reports not being able to afford meds after DC from hospital on Monday - on esmolol with BP parameter < 140 - added cardene, hydralazine, labetalol 3. Acute on chronic kidney disease estimated sta ge II - BUN/Cr 15/1.6 - GFR 64 - renal ultrasound 4. CHF exacerbation - Hx of CHF - bilateral LE 1+ edema - Echo on 11/19 50-54% EF and grade 1 diastolic d ysfunction - imaging noted with mild CHF - check BNP - lasix 20 mg X 1 5. possible tooth abcess - reports tooth pain since Monday - T-max 103 - HR > 90 on arrival, likely d/t pain - RR > 20 - hypertensive - do not suspect septic shock - added zosyn - check echo r/o vegetation 6. Back pain - back pain since release from [facility] on Mon - worsened last night - found to have Endovascular leak starting at ap px level of diaphragms - CV surgery on board 7. GI prophylaxis - famotidine 8. DVT prophylaxis - SCDs - no AC/AP d/t possible endoleak Continue to try to wean off cardene Electronically Signed by Edy Olmedo MD on 11/12 at 1030 RPT #:[id number] END OF REPORT 2020-02-28 12:38:00-00:[address] [facility] ([facility]) Cardiology Consultation REPORT#:[id number] REPORT STATUS: Signed DATE:02/28/20 TIME: 1238 PATIENT: JORGE GOINS UNIT #: [id number] ROOM/BED: [address] : [birth year] AGE: 34 SEX: M ATTEND: Harrison England MD ADM AUTHOR: Dat Stahl DO * ALL edits or amendments must be made on the [employer]/computer document * History of Present Illness HPI Requesting Clinician: Dr. England Reason for consult: BP control Chief complaint: back pain, recent repair of type B dissection Free Text HPI Notes Free Text HPI Notes: 34 yo man with history of type B aortic dissecti on s/p recent TEVAR, HTN, obesity, medication noncompliance presen kar with back pain. Pt reprts onset of achy and sharp back pain abo ut 2-3 days ago. Denies any chest pain, palpitations , lightheadedness/dizziness. Per report called [facility] due to worsening back pain and brought to ER. BP on arr ival was noted to be 240/120mmhg. Pt admitted to ICU for BP control given recent type B aortic dissec tion s/p repair. Cardiology consulted for BP control BP at time of examin 140-150 systolic on esmolol and nicardipine gtt. Pt reports mild mid thoracic back pain. no chest pa in. Back pain improved since admission Non smoker. History - Adult longitudinal Past medical history: Reports: Congestive heart failure, Hypertension. Additional medical history: type B dissection s/p TEVAR Past surgical history: Reports: Cholecystectomy. Additional surgical history: TEVAR Family history: Reports: Diabetes, Hypertension. 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 Skin: Denies: contusion, diaphoresis, ecchymosis. Allergy/Immun: Denies: hives, itching, rhinorrhea. Eyes: Denies: itching, diplopia, eye pain. ENT: Denies: nasal congestion, nose bleeding, sinus p roblem. Respiratory: Denies: COATES (dyspnea on exertion), pleurisy, SOB . Cardiovascular: Denies: chest pain, dyspnea on exertion, orthopn ea, palpitations. GI: Denies: abdominal pain, nausea, vomiting. : Denies: dysuria, flank pain. Musculoskeletal: thoracic pain. Denies: extremity pain. Heme: Denies: bleeding, bruising. Endocrine: Denies: polydipsia, polyphagia. Neuro: Denies: change in LOC, confusion, dizziness. Objective Physical Exam VS/I O: Vital Signs: Date Time Temp Pulse Resp B/P B/P Pulse O2 O2 F low FiO2 Mean Ox Delivery Rate 02/27 1200 36.6 02/27 0800 36.6 02/27 0700 71 19 159/79 112 97 02/27 0650 69 16 151/80 105 94 02/27 0640 66 14 153/75 108 94 02/27 0630 66 19 149/73 104 97 02/27 0620 66 22 142/71 100 96 09/04 0610 67 22 152/73 105 98 09/04 0600 67 22 156/72 106 97 09/04 0550 68 20 156/74 108 98 09/04 0540 72 20 168/81 116 97 09/04 0534 68 09/04 0530 67 21 163/79 114 96 09/04 0520 67 19 162/78 112 96 09/04 0510 69 17 166/78 114 97 09/04 0500 69 19 172/81 117 96 09/04 0450 66 19 168/81 116 97 09/04 0440 65 19 167/79 114 97 09/04 0430 67 18 168/79 116 96 09/04 0420 68 21 162/79 113 95 09/04 0410 67 20 162/77 111 96 09/04 0400 37.5 09/04 0400 68 19 152/74 106 94 09/04 0350 64 20 146/71 100 93 09/04 0340 66 20 159/71 107 94 09/04 0330 67 22 163/75 108 95 09/04 0320 67 22 164/78 112 93 09/04 0310 67 22 158/74 107 94 09/04 0300 67 22 154/72 104 94 09/04 0250 67 20 160/73 107 95 09/04 0240 68 23 168/77 110 98 09/04 0230 68 23 167/74 111 96 09/04 0220 69 23 170/79 113 95 09/04 0210 70 21 163/75 108 96 09/04 0200 69 23 163/77 110 95 09/04 0150 69 22 171/76 115 96 09/04 0140 72 26 173/81 116 96 09/04 0130 70 22 171/80 115 96 09/04 0120 71 23 173/77 115 96 09/04 0110 69 23 176/83 119 95 09/04 0100 70 23 166/77 111 96 09/04 0050 70 22 168/78 112 95 09/04 0040 73 20 176/73 116 97 09/04 0030 70 21 178/84 120 95 09/04 0020 69 23 172/80 115 95 09/04 0010 67 22 173/80 115 95 09/04 0000 37.5 09/04 0000 70 21 166/76 109 95 09/03 2350 70 19 165/77 110 97 09/03 2340 69 20 156/72 103 98 09/03 2330 71 18 157/68 104 98 09/03 2320 69 18 171/79 114 95 09/03 2310 72 20 169/77 111 96 09/03 2300 71 23 173/81 117 94 09/03 2250 70 21 165/75 111 97 09/03 2240 67 21 173/81 116 96 09/03 2230 66 21 171/77 116 96 09/03 2220 69 20 173/80 117 98 09/03 2210 67 19 172/81 116 96 09/03 2200 68 19 171/74 113 96 09/03 2150 68 22 172/80 115 96 09/03 2140 67 19 166/78 112 97 09/03 2130 69 19 160/73 105 98 09/03 2120 68 21 176/77 116 97 09/03 2115 68 20 97 09/03 2110 68 18 176/82 118 97 09/03 2100 68 21 175/83 119 95 09/03 2050 69 23 163/79 113 97 09/03 2040 70 21 156/79 107 95 09/03 2029 67 22 167/77 111 93 09/03 2019 69 21 166/78 112 95 09/03 2009 72 20 161/75 108 94 09/03 2000 69 23 158/73 105 94 09/03 1950 70 18 154/65 99 97 09/03 1940 70 23 162/74 107 94 09/03 1930 36.4 09/03 1930 71 22 161/73 105 95 09/03 1920 71 24 160/73 105 95 09/03 1910 72 21 155/69 99 96 09/03 1901 74 23 150/59 88 97 09/03 1854 74 23 97 09/03 1850 74 24 159/72 104 96 09/03 1840 75 21 154/70 101 97 09/03 1835 75 22 97 09/03 1830 75 22 160/72 103 95 09/03 1820 74 21 164/73 105 96 09/03 1810 75 29 164/74 107 97 09/03 1805 75 22 97 09/03 1800 76 22 162/74 107 96 09/03 1750 78 22 156/70 101 95 09/03 1740 79 29 171/76 109 96 09/03 1735 77 17 98 09/03 1730 78 21 158/72 103 97 09/03 1720 78 24 171/79 113 95 09/03 1710 78 24 167/77 111 95 09/03 1705 77 22 96 09/03 1700 76 23 166/76 111 95 09/03 1650 78 22 169/79 113 94 09/03 1640 76 20 168/78 112 93 09/03 1635 74 21 95 09/03 1630 73 21 161/76 109 92 09/03 1620 73 20 150/65 98 94 09/03 1610 73 24 157/72 103 93 09/03 1605 72 24 95 09/03 1600 72 24 156/71 102 93 09/03 1550 71 23 157/72 104 93 09/03 1540 71 18 152/70 100 97 09/03 1535 71 16 98 09/03 1530 71 19 152/71 102 97 09/03 1520 73 20 159/77 109 96 09/03 1511 73 16 139/63 91 98 09/03 1505 72 13 97 09/03 1500 76 28 149/69 99 99 09/03 1450 72 22 150/71 102 93 09/03 1440 73 24 159/75 108 93 09/03 1435 72 22 96 09/03 1430 72 21 149/70 101 94 09/03 1420 72 21 145/70 100 94 09/03 1410 73 23 151/72 103 90 09/03 1405 71 24 94 09/03 1400 72 22 142/67 97 93 09/03 1350 72 24 141/66 95 92 09/03 1340 73 25 144/67 97 94 09/03 1335 75 14 96 09/03 1330 75 20 147/68 98 95 09/03 1320 76 23 150/69 99 96 09/03 1310 79 19 150/70 101 97 09/03 1305 79 14 97 09/03 1300 80 17 155/72 103 98 09/03 1250 80 25 156/73 105 90 24 hour I O ending at 0700: /04 0700 09/03 1900 Intake Total 2240.00 Output Total 400 Balance 1840.00 Intake, IV 2240.00 Number Voids 1 Output, Urine 400 Patient 107.2 kg Weight Weight Bed scale Measurement Method Patient Weight Weight (lb): 236 Weight (oz): 5.37 Weight (kg): 107.200 General appearance: alert, awake, oriented Head/Eyes: atraumatic, EOMI, normocephalic, PERR L ENT: moist mucosal membranes, normal nose Neck: non-tender, supple/no meningismus Cardiovascular: CV assessment: regular rate and rhythm, no murm ur, 2+ radial pulses bilaterally, DP Pulses present and equal Respiratory: clear to auscultation, no distress Abdomen: soft, non-tender, normal bowel sounds, no guarding Upper extremity: UE assessment: normal capillary refill, normal temperature Lower extremity: LE assessment: normal capillary refill, normal temperature, 1+ pitting edema Musculoskeletal: full range of motion, normal in spection 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, oriented X 3 Skin: dry, intact Diagnosis, Assessment Plan Free Text DxA P Notes Free Text DxA P Notes: 1. Hypertensive urgency - start labetalol 200mg BID, hydralazine 100mg BID, hytrin 1mg daily (d/c'd with these meds from [facility]). Cont procardia XL 90 mg BID - add ACEI/ARB after Cr stabilizes - wean esmolol and nicardipine as tolerated - goal BP < 120 systolic given disssection, idea lly < 110mmHg 2. Type B dissection s/p TEVAR - recent TEVAR at OSH 01/2020, now with apparent type 2 endoleak starting at level of diaphragm continuing to distal abdomina l aorta - vascular surgery following , appreciate recommendations - may need intervention given endoleak 3. Chronic diastolic HF - echo with normal LVEF, grade 1 diastolic dysfu nction - resume PO lasix 40mg Daily 4. CKD stage 3 - appears to be chronic, likely secondary to unc ontrolled HTN Thank you for consultation. Will follow. Please call if quesitons [facility] Cardiology Electronically Signed by Dat Stahl DO o n 02/28/20 at 1250 RPT #:[id number] END OF REPORT 2020-02-28 12:14:00-00:00 [facility]) Vascular Surgery Progress Note REPORT#:[id number] REPORT STATUS: Signed DATE:02/28/20 TIME: 1214 PATIENT: JORGE GOINS UNIT #: [id number] ROOM/BED: [address] : 86 AGE: 34 SEX: M ATTEND: Harrison England MD ADM AUTHOR: Kleber Newby MD * ALL edits or amendments must be made on the rimidi/computer document * Subjective Chief Complaint: aortic dissection s/p TEVAR HPI Pain better controlled with BP within goal range Objective General VS/I O Last Documented: Result Date Time Pulse Ox 97 02/27 0700 B/P 159/79 02/27 0700 B/P Mean 112 02/27 0700 Pulse 71 02/27 0700 Resp 19 02/27 0700 Temp 99.5 02/27 0400 O2 Delivery Room air 02/26 0654 24 hour I O ending at 0700: 02/27 0700 02/26 1900 Intake Total 2240.00 Output Total 400 Balance 1840.00 Intake, IV 2240.00 Number Voids 1 Output, Urine 400 Patient 107.2 kg Weight Weight Bed scale Measurement Method Patient Weight Weight (lb): 236 Weight (oz): 5.37 Weight (kg): 107.200 General appearance: resting comfortably in bed HEENT: atraumatic, normocephalic Cardiovascular: abnormal S1/S2 (BP within goal r patrick) Respiratory: no distress Diagnosis, Assessment Plan Problem List/A P: 1. Hypertensive urgency 2. Aortic dissection Free Text A P: 34 year old male with type B dissection with rec ent TEVAR done at outside hospital now with recurrent hypertension and andrew k pain. Keep BP less than 140mmHg Repeat CTA on Monday02/29/2020: CTA c/a/p aorti c dissection protocol with 3 phases (Please call with questions) May need re-intervention for endoleak pending re sults of CTA Please consult Dr Abhi Ortiz of [facility] for oral BP control recommendations Plan relayed to ICU BRAZING MACHINE TENDER on rounds Electronically Signed by Kleber Newby MD on 10/13 at 1219 RPT #:[id number] END OF REPORT 2020-02-28 09:22:00-00:00 [id number] [facility] [address] [place] [address] PATIENT NAME: JORGE GOINS ADMIT DATE: 02/26 ACCOUNT NO: [id number] ROOM NO: ICC21 AGE: 34 REPORT TYPE: eECHOCARDIOGRAM REPORT. SEX: M ADMITTING PHYSICIAN:Papi England MD ATTENDING PHYSICIAN:Papi England MD *[facility]* [address] [facility] [address] [address] Transthoracic Echocardiogram Patient: Jorge Goins Study Date: 02/27/2020 BP: 163 / 79 Location: [facility] URN: [id number] : 1985 Age: 34 Height: 71 in / 180.3 cm Gender: M Weight: 249 .5 lb / 113.4 kg BMI/BSA: 34.9 kg/m 2 / 2.42 m 2 *Ordering Physician: * Riky Rich *Interpreting Physician: * Ajit Still MD *Customer Technical Services Manager: * Deb Fritz Indications: HTN, CP. Study data: Transthoracic echocardiogram. Proced ure: Transthoracic echocardiography was performed. Images were obta ined using a [employer] E95-1 cardiac ultrasound machine. Complete 2D, complet e spectral Doppler, and color Doppler. Patient status: Inpatient. Saturnino gonsalez room number: ICC21. Study status: Routine. Findings Left ventricle: The cavity size is normal. Wall thickness is mildly increased. Systolic function is normal. The kevin mated ejection fraction is 55-60%. Wall motion is normal; there are no r egional wall motion abnormalities. Doppler parameters are consistent with abnormal left ventricular relaxation (grade 1 diastolic dysfun ction). Right ventricle: The cavity size is normal. Syst olic function is PATIENT NAME: JORGE GOINS [id number] normal. Left atrium: The atrium is mildly dilated. Right atrium: The atrium is mildly dilated. Aorta: Aortic root: The aortic root is normal in size. Aortic valve: The valve is structurally normal. The valve is trileaflet. There is no evidence of stenosis. Th ere is no regurgitation. Mitral valve: The valve is structurally normal. There is no evidence of stenosis. There is no regurgitation. Tricuspid valve: The valve is structurally brooklynn l. There is mild regurgitation. Pulmonic valve: The valve is structurally normal . There is no regurgitation. Pericardium: There is no pericardial effusion. Pulmonary arteries: The main pulmonary artery is normal-sized. Systemic veins: Inferior vena cava: The vessel is normal in size . Measurements Left ventricle Value 11/20/2019 Ref Aortic valv e continued Value 11/20/2019 Ref JULIET, LAX 5.3 cm 4.8 4.2 - Mean grad, S 9.2 mm Hg 4.5 ----- 5.8 Peak grad, S 17.4 mm Hg 8.0 ----- ESD, LAX 3.8 cm 4.0 2.5 - LVOT/AV, VTI 0.66 0.76 ----- 4.0 ratio ESD/bsa, 1.6 cm/m 2 1.7 1.3 - NORMA, VTI 2.78 cm 2 2.44 ----- LAX 2.1 LVOT/AV, Vpeak 0.63 0.73 ----- FS, LAX 29 % 17 25 - 43 ratio PW, ED 1.5 cm 1.6 0.6 - NORMA, Vmax 2.66 cm 2 2.33 ----- 1.0 PW, ES 2.2 cm -------- Mitral valve Value 11/20/2019 Ref IVS/PW, ED 0.91 0.98 -------- Peak E 0.84 m/sec 0.8 ----- EF 55 % 35 52 - 72 Peak A 0.65 m/sec 0.44 ----- Decel time 238 ms 180 ----- LVOT Value 11/20/2019 Ref Peak grad, D 2.8 mm Hg 4.1 ----- Diam, S 2.33 cm 2.02 -------- Peak E/A ratio 1.3 1.8 ----- Area 4.3 cm 2 3.2 -------- Peak matt, S 1.3 m/sec 1.04 -------- Pulmonic va lve Value 11/20/2019 Ref PATIENT NAME: JORGE GOINS [id number] Mean matt, S 0.95 m/sec 0.8 -------- ND peak v 1.67 m/sec ----- VTI, S 22.3 cm 16.0 -------- ND peak grad 11 mm Hg ----- Peak grad, 7 mm Hg 4 -------- ND grad, ED 11 mm Hg ----- S Mean grad, 4 mm Hg 3 -------- Tricuspid valve Value 11/20/2019 Ref S TR peak v 2.45 m/sec 2.91 <=2.8 SV 95 ml 51 -------- Peak RV-RA 24 mm Hg 34 ----- SV/bsa 39 ml/m 2 21 -------- grad, S Ventricular septum Value 11/20/2019 Ref Aortic root Value 11/20/2019 Ref IVS, ED 1.4 cm 1.6 0.6 - Root diam 3.3 cm <4.2 1.0 IVS, ES 1.7 cm -------- Ascending a cleopatra Value 11/20/2019 Ref AAo AP diam, S 3.1 cm 2.9 ----- Right ventricle Value 11/20/2019 Ref AAo AP 1.3 cm/m 2 1.2 ----- JULIET, LAX 3.8 cm 3.6 -------- diam/bsa, S Pressure, S 34 mm Hg 49 -------- Pulmonary artery Value 11/20/2019 Ref Left atrium Value 11/20/2019 Ref Pressure, S 29.7 mm Hg 44.1 ----- AP dim, ES 4.70 cm 4.73 3.00 - 4.00 Systemic veins Value 11/20/2019 Ref Estimated CVP 10 mm Hg 15 ----- Aortic valve Value 11/20/2019 Ref Peak v, S 2.08 m/sec 1.42 -------- Mean v, S 1.44 m/sec 1.02 -------- VTI, S 34.0 cm 20.9 -------- Conclusions Summary: 1. Left ventricle: The cavity size is normal. Wa ll thickness is mildly increased. Systolic function is normal. The est imated ejection fraction is 55-60%. Wall motion is normal; ther e are no regional wall motion abnormalities. Doppler parameters are co nsistent with abnormal left ventricular relaxation (grade 1 diastolic dysfunction). 2. Left atrium: The atrium is mildly dilated. 3. Right atrium: The atrium is mildly dilated. PATIENT NAME: JORGE GOINS [id number] Impressions: 1. Normal left ventricle systolic f unction, ejection fraction 55-60%. 2. Diastolic function is impaired relaxation 3. Mild left ventricular hypertrophy 4. Mild tricuspid regurgitation 5. Mild pulmonary hypertension Prepared and elec tronically signed by Ajit Still MD 02/28/2020 09:22 Electronically Signed by Ajit Still MD on 10/13 at 0922 PATIENT NAME: JORGE GOINS [id number] 22:12:00-00:00 [facility]) Vascular Surgery Consult Note REPORT#:[id number] REPORT STATUS: Signed DATE:02/27/20 TIME: 2211 PATIENT: JORGE GOINS UNIT #: [id number] ROOM/BED: [address] : 86 AGE: 34 SEX: M ATTEND: Harrison England MD ADM AUTHOR: Lorenzo Cardoza MD * ALL edits or amendments must be made on the rimidi/computer document * History of Present Illness Requesting Clinician: Papi England MD Reason for consult: Type B dissection Chief complaint: Back pain HPI: 34 year old male with recent TEVAR done for acut e type B dissection here now with severe hypertension with recurrent back easton n. Admitted to the ICU for BP control. With BP in 160s patient is now pain shay e. History - Adult longitudinal Past medical history: Reports: Congestive heart failure, Hypertension. Past surgical history: Reports: Cholecystectomy. Family history: Reports: Diabetes, Hypertension. Allergies: Coded Allergies: Iodine and Iodide Containing Produc (Severe, HIV ES 11/19/19) shellfish derived (Intermediate, RASH 11/19/19) Review of Systems Constitutional: Denies: chills, fatigue, fever, generalized weak ness. Eyes: Denies: redness, discharge, visual loss/blurred. ENT: Denies: mouth pain, nose bleeding, sinus problem . Respiratory: Denies: hemoptysis, non productive cough, SOB. Objective VS/I O: Last Documented: Result Date Time Pulse Ox 95 02/26 1930 B/P 161/73 02/26 1930 B/P Mean 105 02/26 1930 Pulse 71 02/26 1930 Resp 22 09/03 1930 Temp 98.6 09/03 0800 O2 Delivery Room air 02/26 0654 24 hour I O ending at 0700: 02/26 0700 02/25 1900 Intake Total Output Total Balance Patient 113.636 kg Weight Weight Stated/Reported Measurement Method Patient Weight Weight (lb): Weight (oz): Weight (kg): 113.636 General appearance: alert, awake HEENT: mucosal membranes moist, pupils reactive to light, sclera clear Neck: full range of motion, non-tender, normal thyroid, supple/no meningismus, no bruit/NL carotids, no JVD, no lymphadenopathy , no masses, no swelling Cardiovascular: normal heart sounds, regular rat e rhythm Free text obj notes: Vascular: 2+ pulses throughout, abdomen soft NTND Diagnosis, Assessment Plan Problem List/A P: 1. Hypertensive urgency 2. Aortic dissection Free Text A P: 34 year old male with type B dissection with rec ent TEVAR done at outside hospital now with recurrent hypertension and andrew k pain. Keep BP less than 140mmHg Repeat CTA on Monday May need re-intervention for endoleak at 2217 RPT #:[id number] END OF REPORT 2020-02-27 17:43:00-00:00 [facility]) Critical Care Consult Note REPORT#:[id number] REPORT STATUS: Signed DATE:02/27/20 TIME: 1743 PATIENT: JORGE GOINS UNIT #: [id number] ROOM/BED: [address] : 86 AGE: 34 SEX: M ATTEND: Harrison England MD ADM AUTHOR: Edy Olmedo MD * ALL edits or amendments must be made on the el [employer]/computer document * History of Present Illness HPI Chief complaint: Abdominal pain HPI: This is a 34 y/o male with PMH of HTN, CHF, Obes ity, non-compliance and is recently s/p AAA repair. Patient reports he was released from [facility] this last Monday s/p AAA repair. Patie nt reports he has been having low back pain and tooth pain since his release from the hospital. Last night the pain became unbearable and p atient called EMS. Patient reports he was unable to purchase his BP medications d/t [place]. On EMS ar rival he was noted with BP of 240/120. He was brought to ED for further evalua tion and treatment. History - Adult longitudinal Past medical history: Reports: Congestive heart failure, Hypertension. Additional medical history: HTN, CHF Past surgical history: Reports: Cholecystectomy. Additional surgical history: CCY Family history: Reports: Diabetes, Hypertension. 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 Skin: Denies: abrasion, bruising, contusion, diaphores is, ecchymosis, itching, laceration, rash, swelling, other. All systems rev neg: except as marked Objective Physical Exam: General appearance: alert, awake, oriented Head/Eyes: PERRLA, EOMI Neck: no JVD, no lymphadenopathy Cardiovascular: no murmur, no rub, no gallop Respiratory/Chest: symmetric expansion, no distr ess, no tenderness Abdomen: soft, non-tender, no guarding, no mass/ organomegaly Extremities: upper extremities pulse, no pedal e benton Skin: normal color, normal temperature Results: Findings/Data: Reviewed and noted as per chart Diagnosis, Assessment Plan Diagnosis, Assessment Plan Free Text A P: Assessement/Plan: 1. AAA - recent placement of AAA stent d/t complex AAA - reports back pain since discharge on Monday - worsened last night - EMS notified, brought to ED - found to have Endovascular leak starting at ap px level of diaphragms - CV surgery consulted - on esmolol drip - SBP goal < 140 2. Hypertensive emergency - SBP 226/133 on arrival - reports not being able to afford meds after DC from hospital on Monday - on esmolol with BP parameter < 140 - added cardene, hydralazine, labetalol 3. Acute on chronic kidney disease estimated sta ge II - BUN/Cr 15/.6 - GFR 64 - renal ultrasound 4. CHF exacerbation - Hx of CHF - bilateral LE 1+ edema - Echo on 11/19 50-54% EF and grade 1 diastolic d ysfunction - imaging noted with mild CHF - check BNP - lasix 20 mg X 1 5. possible tooth abcess - reports tooth pain since Monday - T-max 103 - HR > 90 on arrival, likely d/t pain - RR > 20 - hypertensive - do not suspect septic shock - added zosyn - check echo r/o vegetation 6. Back pain - back pain since release from [facility] on Mon - worsened last night - found to have Endovascular leak starting at ap px level of diaphragms - CV surgery on board 7. GI prophylaxis - famotidine 8. DVT prophylaxis - SCDs - no AC/AP d/t possible endoleak CC time >40min. No procedure time included in th is time. Electronically Signed by Edy Olmedo MD on 11/12 at 1027 RPT #:[id number] END OF REPORT 2020-02-27 09:49:00-00:[address] [facility] ([facility]) Consultation Note - Brief REPORT#:[id number] REPORT STATUS: Signed DATE:02/27/20 TIME: 09 PATIENT: JORGE GOINS UNIT #: [id number] ROOM/BED: [address] : 86 AGE: 34 SEX: M ATTEND: Harrison England MD ADM AUTHOR: Riky Rich NP * ALL edits or amendments must be made on the rimidi/computer document * History of Present Illness HPI Reason for consult: Critical Care Management Chief complaint: Recent AAA repair, back pain, tooth pain, endo l eak History of present illness: This is a 34 y/o male with PMH of HTN, CHF, Obes ity, non-compliance and is recently s/p AAA repair. Patient reports he was released from [facility] this last Monday s/p AAA repair. Patie nt reports he has been having low back pain and tooth pain since his release from the hospital. Last night the pain became unbearable and p atient called EMS. Patient reports he was unable to purchase his BP medications d/t [place]. On EMS ar rival he was noted with BP of 240/120. He was brought to ED for further evalua tion and treatment. History - Adult longitudinal Past medical history: Reports: Congestive heart failure, Hypertension. Additional medical history: HTN, CHF Past surgical history: Reports: Cholecystectomy. Family history: Reports: Diabetes, Hypertension. Additional family history: Mother alive history of diabetes hypertension Father unknown Alcohol use: Denies EtOH use Drug use: Denies recreational drugs Smoking status for patients 13 years old or olde r: Never Smoker Date last smoked: The data set between the solid lines has been im ported from nursing documentation. Any exceptions have been noted be low under Provider comments. Date last smoked: Provider comments on imported nursing data: [] Other social history: Unemployed, Local resident , Good social support Medications: Home Medications: Medication Dose/Rte/Freq Days Qty Entered Last Max Daily Dose Reviewed ALBUTEROL 2 PUFF INH 05/08/19 02/27/20 (PROAIR HFA 90 MCG/ACT RTQ6H PRN PRN SOB 1946 0 924 8.5 GM) Strength: 90 MCG INHALER ASPIRIN EC (ECOTRIN) 81 MG PO DAILY 30 30 05/1002/27/20 Strength: 81 MG TAB.EC 1128 0924 CARVEDILOL (COREG) 25 MG PO BID MEALS 30 60 02/27/20 Strength: 25 MG TAB 1224 0924 ACETAMINOPHEN/CODEINE 1 TAB PO 7 20 05/10/19 (TYLENOL WITH CODEINE Q6H PRN PRN PAIN 1224 #4 300/60 MG) Strength: 300 MG-60 MG TAB ATORVASTATIN (LIPITOR) 20 MG PO BEDTIME 30 30 0 11/23/19 02/27/20 Strength: 20 MG TAB 1620 0924 LOSARTAN (COZAAR) 100 MG PO DAILY 30 11/23/19 0 02/27/20 Strength: 50 MG TAB 1621 0924 NIFEdipine CC (ADALAT CC) 90 MG PO Q12HR 60 02/27/20 Strength: 90 MG TAB.SA 1621 0924 HYDROCHLOROTHIAZIDE 25 MG PO DAILY 30 11/23/19 02/27/20 (HYDRODIURIL) 1621 0924 Strength: 25 MG TAB Current Hospital Medications: Cardiovascular Drugs Sig/Ronan Start time Last Medication Dose Route Stop Time Status Admin Labetalol HCl 10 MG Q1H PRN PRN 02/26 0930 PEND (TRANDATE, NORMODYNE) IV 03/28 0931 Esmolol HCl 250 ML TITRATE 02/26 0900 CKD (BREVIBLOC 2500MG/ IV 03/28 0901 250ML 0.9% IV BAG) Hydralazine HCl 20 MG Q4H PRN PRN 02/26 0815 AC 02/26 (APRESOLINE) IV 03/28 0816 0816 Nicardipine HCl 250 ML TITRATE 02/26 0815 AC (NICARDIPINE 50MG/ IV 03/28 0816 0813 250ML 0.9%NS) Esmolol HCl 250 ML .Q24H ONE 02/26 0630 DC 09/0 3 (BREVIBLOC 2500MG/ IV 02/27 0629 0652 250ML 0.9% IV BAG) Labetalol HCl 10 MG X1ED STA 02/26 0544 DC 09/0 3 (TRANDATE, NORMODYNE) IV 02/26 0545 0559 Hydralazine HCl 10 MG X1ED STA 02/26 0443 DC (APRESOLINE) IV 02/26 0444 0511 Central Nervous System Agents Sig/Ronan Start time Last Medication Dose Route Stop Time Status Admin Fentanyl Citrate 25 MCG Q2H PRN PRN 02/26 0930 AC (fentaNYL CITRATE) IV 03/08 09 Fentanyl Citrate 100 MCG X1ED STA 02/26 0544 DC 02/26 (fentaNYL CITRATE) IV 02/26 0545 0558 Aspirin 324 MG X1ED STA 02/26 0443 DC 02/26 (ASPIRIN CHEWABLE) PO 02/26 0444 0511 Morphine Sulfate 4 MG X1ED STA 02/26 044 DC (morphine) IV 02/26 0444 0512 Diagnostic Agents Sig/Ronan Start time Last Medication Dose Route Stop Time Status Admin Iopamidol 100 ML .STK-MED ONE 02/26 05 DC (ISOVUE-370 100ML) IV 02/26 0540 0539 Gastrointestinal Drugs Sig/Ronan Start time Last Medication Dose Route Stop Time Status Admin Ondansetron HCl 4 MG X1ED STA 02/26 0552 DC (ZOFRAN 4 MG/2 ML IV 02/26 0553 0558 INJ) Ondansetron HCl 4 MG X1ED STA 02/26 0517 DC (ZOFRAN 4 MG/2 ML IV 02/26 0518 0519 INJ) Allergies: Coded Allergies: Iodine and Iodide Containing Produc (Severe, HIV ES 11/19/19) shellfish derived (Intermediate, RASH 11/19/19) Ambulatory status: Independent Brief Consult Note Physical Exam Vitals: Last Documented: Result Date Time Pulse Ox 94 02/26 0900 B/P 163/79 02/26 0900 B/P Mean 110 02/26 0900 Pulse 83 02/26 0900 Resp 28 02/26 900 Temp 98.6 02/26 0800 O2 Delivery Room air 02/26 0654 General appearance: alert, awake, oriented, no a cute distress, pleasant, conversational, mental status normal HEENT: anicteric, mucosal me mbranes moist, pale conjunctivae, pupils reactive to light, sclera clear Neck: full range of motion, non-tender Cardiovascular: normal capillary refill, regular rate rhythm, pedal edema (1+) Respiratory: clear to auscultation, no distress Abdomen: soft, non-tender Abdomen quadrants: LLQ normal bowel sounds, LUQ normal sommer l sounds, RLQ normal bowel sounds, RUQ normal bowel sounds Genitourinary: not indicated 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, oriented X 3, normal speech, n o motor deficits, no sensory deficits Considered stroke alert: no Extremities: Bilat moves all, Bilat no edema Skin: dry, intact, no gross abnormalities, brooklynn l color, normal turgor Findings/Data: Recent Impressions: RADIOLOGY - XR CHEST 1 V 02/26 519 Report Impression - Status: SIGNED Entered: 02/27/2020530 IMPRESSION: Moderately enlarged cardiac silhouette. Impression By: Raymundo Zelaya CAT SCAN - CTA ABD PEL W CONT 02/26 537 Report Impression - Status: SIGNED Entered: 02/27/2020606 IMPRESSION: Placement of an endovascular stent in the descen ding thoracic aorta situated just distal to the left subclavian scot ry with nonvisualization of previously seen dissection. Endovascular leak starting at approximately level of the diaphragm s posterior to the graft and putamen downwards into the abdomen Mild CHF Limited assessment for PE given technical factor s without large central PE Location: H3 CTA of the abdomen conducted on 02/27/20 CLINICAL HISTORY: Known aortic dissection, back pain. Emergency room presentation.. COMPARISON EXAMS: CTA assessment of the chest an d abdomen of 02/09/20 TECHNIQUE: A CTA scan of the abdomen was conduct ed scanning in the axial plane acquiring contiguous 2.5 mm slice th ickness from the diaphragms through the pubic symphysis, using va scular protocol, with 100 mL of Isovue 370 injected for IV contrast. M aximum intensity projection imaging was acquired both in the sagi ttal and coronal plane. Volumetric imaging acquired. The examina tion was performed on an updated helical CT scanner utilizing low-dose radiation technique. Automatic exposure control technique was utilize d to reduce radiation dose . FINDINGS: There has been placement of an endovascular ellis t in the aorta extending into the abdomen with endovascular alessandra k situated starting at approximately the level of the diaphragms rn house supervisor ior to the graft. This extending minimally above the diaphragm. Th e leak is fairly well confined. Reperfusion of the left renal artery w ith absence of previously seen thrombus. Both kidneys exhibit n ormal uptake. No significant compromise of the mesenteric vessels is identified. No definite renal infarct. Endovascular leak even e xtends into the iliac vessels and is fairly extensively seen posterior to the stent which extends downwards to the distal abdominal aorta. Mild stranding in the left retroperitoneum again identified. No vascular blush in this area. No hemoperitoneum. The liver demonstrates normal size, attenuation and contour without focal masses or enlargement. Patient status post cholecystectomy. No biliary distention is seen. The spleen is normal in size without focal defec ts, given limitation from arterial protocol employed. The adrenal glands are unremarkable without mass es. The pancreas demonstrates normal contour and att enuation without definite focal masses or enlargement. There is n o effacement of the peripancreatic fat to suggest an inflammatory pr ocess. There are no peripancreatic fluid collections. Mild distention of small bowel loops likely ria cative an ileus.. The IVC is unremarkable. There is no significant adenopathy within the ab domen. The kidneys demonstrate no hydronephrosis. No fl uid collections are identified. Kidneys exhibit normal functioning . IMPRESSION: Placement of an endovascular graft/stent extendi ng from the descending thoracic aorta into the abdomen and extending do wnwards to the distal aortic bifurcation. Endovascular leak is seen po sterior to the endovascular stent starting at approximately lev el of the diaphragms and continuing downwards to the distal abdominal aorta. Nonvisualization of thrombus previously identifi ed in the left renal artery with the left kidney demonstrating functi oning and uptake of contrast Impression By: Davian - Aniya Ramirez MD CAT SCAN - CT ANGIO CHEST 02/26 6596 Report Impression - Status: SIGNED Entered: 02/27/2020 0607 IMPRESSION: Placement of an endovascular stent in the descen ding thoracic aorta situated just distal to the left subclavian scot ry with nonvisualization of previously seen dissection. Endovascular leak starting at approximately level of the diaphragm s posterior to the graft and putamen downwards into the abdomen Mild CHF Limited assessment for PE given technical factor s without large central PE Location: H3 CTA of the abdomen conducted on 02/27/20 CLINICAL HISTORY: Known aortic dissection, back pain. Emergency room presentation.. COMPARISON EXAMS: CTA assessment of the chest an d abdomen of 02/09/20 TECHNIQUE: A CTA scan of the abdomen was conduct ed scanning in the axial plane acquiring contiguous 2.5 mm slice th ickness from the diaphragms through the pubic symphysis, using va scular protocol, with 100 mL of Isovue 370 injected for IV contrast. M aximum intensity projection imaging was acquired both in the sagi ttal and coronal plane. Volumetric imaging acquired. The examinat ion was performed on an updated helical CT scanner utilizing low-dose radiation technique. Automatic exposure control technique was utilize d to reduce radiation dose . FINDINGS: There has been placement of an endovascular ellis t in the aorta extending into the abdomen with endovascular alessandra k situated starting at approximately the level of the diaphragms rn house supervisor ior to the graft. This extending minimally above the diaphragm. Th e leak is fairly well confined. Reperfusion of the left renal artery w ith absence of previously seen thrombus. Both kidneys exhibit n ormal uptake. No significant compromise of the mesenteric vessels is identified. No definite renal infarct. Endovascular leak even e xtends into the iliac vessels and is fairly extensively seen posterior to the stent which extends downwards to the distal abdominal aorta. Mild stranding in the left retroperitoneum again identified. No vascular blush in this area. No hemoperitoneum. The liver demonstrates normal size, attenuation and contour without focal masses or enlargement. Patient status post cholecystectomy. No biliary distention is seen. The spleen is normal in size without focal defec ts, given limitation from arterial protocol employed. The adrenal glands are unremarkable without mass es. The pancreas demonstrates normal contour and att enuation without definite focal masses or enlargement. There is n o effacement of the peripancreatic fat to suggest an inflammatory pr ocess. There are no peripancreatic fluid collections. Mild distention of small bowel loops likely ria cative an ileus.. The IVC is unremarkable. There is no significant adenopathy within the ab domen. The kidneys demonstrate no hydronephrosis. No fl uid collections are identified. Kidneys exhibit normal functioning . IMPRESSION: Placement of an endovascular graft/stent extendi ng from the descending thoracic aorta into the abdomen and extending do wnwards to the distal aortic bifurcation. Endovascular leak is seen po sterior to the endovascular stent starting at approximately lev el of the diaphragms and continuing downwards to the distal abdominal aorta. Nonvisualization of thrombus previously identifi ed in the left renal artery with the left kidney demonstrating functi oning and uptake of contrast Impression By: [email or web address] - Aniya Ramirez MD Laboratory Tests 02/27/20 0507: [Embedded Image Not Available] Free Text A P: Assessement/Plan: 1. AAA - recent placement of AAA stent d/t complex AAA - reports back pain since discharge on Monday - worsened last night - EMS notified, brought to ED - found to have Endovascular leak starting at ap px level of diaphragms - CV surgery consulted - on esmolol drip - SBP goal < 140 2. Hypertensive emergency - SBP 226/133 on arrival - reports not being able to afford meds after DC from hospital on Monday - on esmolol with BP parameter < 140 - added cardene, hydralazine, labetalol 3. Acute on chronic kidney disease estimated sta ge II - BUN/Cr 10/07.6 - GFR 64 - renal ultrasound 4. CHF exacerbation - Hx of CHF - bilateral LE 1+ edema - Echo on 11/19 50-54% EF and grade 1 diastolic d ysfunction - imaging noted with mild CHF - check BNP - lasix 20 mg X 1 5. possible tooth abcess - reports tooth pain since Monday - T-max 103 - HR > 90 on arrival, likely d/t pain - RR > 20 - hypertensive - do not suspect septic shock - added zosyn - check echo r/o vegetation 6. Back pain - back pain since release [facility] Mon - worsened last night - found to have Endovascular leak starting at ap px level of diaphragms - CV surgery on board 7. GI prophylaxis - famotidine 8. DVT prophylaxis - SCDs - no AC/AP d/t possible endoleak KW ICU Checklist Analgesia: acetaminophen, fentanyl Nutrition: NPO until after CV surgery eval Glycemic control: n/a Ulcer prophylaxis: famotidine DVT prophylaxis: SCDs Need for central Line: n/a Need for zuñiga catheter: n/a Ventilator day/weaning: n/a Restraints Renewal (within 24 hours): n/a Electronically Signed by Riky Rich NP on at 1026 RPT #:[id number] END OF REPORT 2020-02-27 06:02:00-00:[address] [facility] ([facility]) EMERGENCY PROVIDER REPORT REPORT#:[id number] REPORT STATUS: Signed DATE:02/27/20 TIME: 601 PATIENT: JORGE GOINS UNIT #: [id number] ROOM/BED: AGE: 34 SEX: M PCP PHYS: No Primary or Family Ph ysician SERVICE AUTHOR: Sonja Castrejon * ALL edits or amendments must be made on the rimidi/computer document * HPI-Chest Pain Under 40 General Initial Greet Date/Time 02/27/20 0443 PCP none Presentation Chief Complaint Back pain, Nausea Hx Obtained From Patient, EMS Sudden in Onset? No Onset Occurred Today Symptom Duration Since onset Progression since Onset Gradually worsening Context of Onset At rest Location Back Severity: Onset Mild Severity: Current Moderate Associated with Reports: Nausea. Denies: Cough, non-prod uctive, Cough, productive, Cough, with hemoptysis, Fever, Shortness of breath, Syncope, Vomiting, Weakness, Wheezing. Exacerbated by Nothing Relieved by Nothing Context Similar Sx Previous Yes Free Text HPI Notes Free Text HPI Notes 34-year-old male with a hist ory of CHF malignant hypertension and recent aortic dissection brought in by EMS for evaluation of lower back pain and right dental abscess. Patient states the back pain began last night and progressively worsening prompting him to c all 911. patient was diagnosed with an acute aortic dissection in January 2020 wa s initially seen at this facility and transferred to [facility] in the [facility] due to se verity of dissection. Patient states that he was unable to purchase his antihypertensives after discharge and therefore has been noncompliant with all medications since surgery. EMS report patient significantly hypotensive pressures 240s /120s. Patient denies chest pain, shortness of breath or exposure to COVID-1 9. Patient does report lower back pain and discomfort. EMS reports they attem pted to transfer the patient back to [facility] as his fan rgery happened less than 30 days ago however patient refused requesting several other facilities incl uding this facility, but declined to return to [facility] at that time. Risk-Chest Pain Under 40 Risk Stratification )( Coronary Artery Disease Risk factors reviewed )( Pulmonary Embolism Risk factors reviewed )( AMI-Aspirin Aspirin Last 24 Hrs On arrival )( HEART for MACE )( HEART for MACE Response Value History High index of suspicion 2 ECG Interpretation Nonspec repol disturb 1 Age Age under 45 0 Risk Factors for CAD 3+ CAD risk factors 2 Troponin < or = to NL troponin 0 Total 5 Review of Systems ROS Statements All systems rev neg except as marked. Basic Review of Systems Basic ROS EYES: No redness, ENT: No sore throat, : No dysuria/frequency, HEM: No bleeding/bruising Focused Review of Systems Respiratory Denies: Shortness of breath, Wheezing. Cardiovascular Denies: Chest pain. Musculoskeletal Reports: Back pain. Additional Review of Systems Ears/Nose/Throat Reports: Toothache. Past Medical History - Adult Stated Complaint CP,BP Allergies Coded Allergies: Iodine and Iodide Containing Produc (Severe, HIV ES 11/19/19) shellfish derived (Intermediate, RASH 11/19/19) Home Medications Active Scripts ASPIRIN EC (ECOTRIN) 81 MG PO DAILY 30 Days #30 TABS Prov: 05/10/19 CARVEDILOL (COREG) 25 MG PO BID MEALS 30 Days #60 TAB Prov: 05/10/19 ACETAMINOPHEN/CODEINE (TYLENOL WITH CODE INE #4 300/60 MG) 1 TAB PO Q6H PRN PRN PAIN 7 Days #20 TAB Prov: 05/10/19 ATORVASTATIN (LIPITOR) 20 MG PO BEDTIME 30 Days #30 TABS Prov: 11/23/19 LOSARTAN (COZAAR) 100 MG PO DAILY LOSARTAN (COZAAR) 100 MG PO DAILY #30 TAB Prov: 11/23/19 NIFEdipine CC (ADALAT CC) 90 MG PO Q12HR NIFEdipine CC (ADALAT CC) 90 MG PO Q12HR #60 TA B Prov: 11/23/19 HYDROCHLOROTHIAZIDE (HYDRODIURIL) 25 MG PO DAILY HYDROCHLOROTHIAZIDE (HYDRODIURIL) 25 MG PO THOMAS Y #30 TAB Prov: 11/23/19 Reported Medications ALBUTEROL (PROAIR HFA 90 MCG/ACT 8.5 GM) 2 PUFF INH RTQ6H PRN PRN SOB Past Medical History: Reports: Congestive heart failure, Hypertension. Additional Medical History HTN, CHF Additional Surgical History CCY Family History: Reports: Diabetes, Hypertension. Additional Family History Mother alive history of diabetes hypertension Father unknown Alcohol Use Denies EtOH use Drug Use Denies recreational drugs Smoking status for patients 13 years old or olde r: Unknown,if ever smoked Other Social History Local resident Additional Social History single he works in [employer] he denies any alcoh ol use or tobacco use Physical Exam Vital Signs Vital Signs First Documented: Result Date Time Pulse Ox 100 09/03 0442 B/P 226/133 02/26 442 B/P Mean 164 02/26 442 O2 Delivery Room air 02/26 442 Temp 103.0 02/26 442 Pulse 98 02/26 442 Resp 18 02/26 442 Last Documented: Result Date Time Pulse Ox 100 02/26 0532 B/P 226/133 02/26 442 B/P Mean 164 02/26 442 O2 Delivery Room air 02/26 442 Temp 103.0 02/26 442 Pulse 98 02/26 442 Resp 18 02/26 442 Review of Vital Signs Reviewed Focused PE General/Const General/Const Awake, Alert, Well developed, Wel l hydrated, Well nourished, Cooperative Distress/Hydration Distress mild. Behavior Anxious. Appearance/Presentation In pain, Uncomfortable. Eyes Eyes PERRL MS Neck Neck Supple, Full range of motion, No s welling, Non-tender, No masses, No JVD Resp/Chest Respiratory/Chest Breath sounds NL, Breath soun ds = bilat, No respiratory distress, No rales, No rhonchi, No wheezing, No chest tenderness Cardiovascular Cardiovascular Heart rate NL, Regular rhythm, H eart sounds NL, No murmurs, Peripheral circulation NL, Pulses = bilaterally, No gross BP differential Abdomen/GI Abdomen/GI Soft, Non-tender, No guarding, No re bound, BS normoactive, No distention MS Back Back Inspection NL, Non-tender, No CVA tenderne ss MS Lower Extrem Lower Ext/Pelvis/MS Inspection NL, Non-tender, No erythema, No deformity, Neurologic intact, Vascular intact, No edema Text/Dict Notes 2+ pitting edema to the bilateral lower extremities extending from the feet to the upper lower leg. Skin Skin Color NL, Warm, Dry, Turgor NL Neurologic Neurologic Oriented X3, Speech NL, No motor def icits, No sensory deficits Psychiatric Psychiatric Affect NL, Mood NL, Thought content NL Additional PE Ears/Nose/Throat Text/Dict Notes Large cavity in the right lower middle molar Interpretation Diagnostics Lab Results Interpretation Results Laboratory Tests 02/27/20 0507: [Embedded Image Not Available] Laboratory Tests: 02/26 02/26 02/26 02/26 0534 0529 0523 0507 Chemistry Sodium (137 - 145 mmol/L) 135 L Potassium (3.4 - 5.0 mmol/L) 4.3 Chloride (98 - 107 mmol/L) 104 Carbon Dioxide (22 - 30 mmol/L) 25 BUN (9 - 20 mg/dL) 15 Creatinine (0.7 - 1.3 mg/dL) 1.6 H POC Creatinine (0.66 - 1.25 mg/dL) 1.7 H Glomerular Filtr Rate (>60) 64 Glucose (74 - 106 mg/dL) 94 Calcium (8.4 - 10.2 mg/dL) 8.7 Magnesium (1.6 - 2.3 mg/dL) 1.6 Total Bilirubin (0.2 - 1.3 mg/dL) 1.7 H Conjugated Bilirubin (0 - 0.3 mg/dL) 0 Unconjugated Bilirubin (0 - 1.1 mg/dL) 0.7 AST (15 - 46 U/L) 33 ALT (0 - 34 U/L) 21 Total Alk Phosphatase (38 - 126 U/L) 142 H Rapid Troponin I (0.00 - 0.079 ng/mL) 0.04 Total Protein (6.3 - 8.2 g/dL) 7.4 Albumin (3.5 - 5.0 g/dL) 3.6 Lipase (23 - 300 U/L) 25 Coagulation INR 1.5 PTT ([place]) (23.4 - 37.0 SECONDS) 38.3 H PT Patient/Control Mix (9.2 - 12.1 SECONDS) 17. 2 H Hematology WBC (5.0 - 12.0 x10 3/uL) 6.4 RBC (4.70 - 6.10 x10 6/uL) 3.89 L Hgb (14.0 - 18.0 g/dL) 11.0 L Hct (37.0 - 49.0 %) 34.9 L MCV (80 - 94 fL) 90 MCH (27 - 31 pg) 28.3 MCHC (33 - 37 g/dL) 31.5 L RDW (11.5 - 15.5 %) 14.9 Plt Count (130 - 400 x10 3/uL) 277 MPV (9.4 - 16.4 fL) 9.7 Neut % (Auto) (43 - 65 %) 81.3 H Lymph % (Auto) (20.5 - 45.5 %) 6.4 L Citrus % (Auto) (5.5 - 11.7 %) 11.2 Eos % (Auto) (0.9 - 2.9 %) 0.2 L Baso % (Auto) (0.2 - 1.0 %) 0.3 Neut # (Auto) (2.2 - 4.8 x10 3/uL) 5.21 H Lymph # (Auto) (1.3 - 2.9 x10 3/uL) 0.41 L Citrus # (Auto) (0.3 - 0.8 x10 3/uL) 0.72 Eos # (Auto) (0.0 - 0.2 x10 3/uL) 0.01 Baso # (Auto) (0.0 - 0.1 x10 3/uL) 0.02 Immature Gran % (0.0 - 2.0 %) 0.6 Nucleated RBC % (0 - 1.0 %) 0.0 Serology Nasal/Oral COVID-19 PCR (NEGATIVE) Negative Recent Impressions: RADIOLOGY - XR CHEST 1 V 02/26 0519 Report Impression - Status: SIGNED Entered: 02/27/2020 0531 IMPRESSION: Moderately enlarged cardiac silhouette. Impression By: Reyna - Raymundo Sawyer CAT SCAN - CTA ABD PEL W CONT 02/26 0537 Report Impression - Status: SIGNED Entered: 02/27/2020 0607 IMPRESSION: Placement of an endovascular stent in the descen ding thoracic aorta situated just distal to the left subclavian scot ry with nonvisualization of previously seen dissection. Endovascular leak starting at approximately level of the diaphragm s posterior to the graft and putamen downwards into the abdomen Mild CHF Limited assessment for PE given technical factor s without large central PE Location: H3 CTA of the abdomen conducted on 02/27/20 CLINICAL HISTORY: Known aortic dissection, back pain. Emergency room presentation.. COMPARISON EXAMS: CTA assessment of the chest an d abdomen of 02/09/20 TECHNIQUE: A CTA scan of the abdomen was conduct ed scanning in the axial plane acquiring contiguous 2.5 mm slice th ickness from the diaphragms through the pubic symphysis, using va scular protocol, with 100 mL of Isovue 370 injected for IV contrast. M aximum intensity projection imaging was acquired both in the sagi ttal and coronal plane. Volumetric imaging acquired. The examinat ion was performed on an updated helical CT scanner utilizing low-dose radiation technique. Automatic exposure control technique was utilize d to reduce radiation dose . FINDINGS: There has been placement of an endovascular ellis t in the aorta extending into the abdomen with endovascular alessandra k situated starting at approximately the level of the diaphragms rn house supervisor ior to the graft. This extending minimally above the diaphragm. Th e leak is fairly well confined. Reperfusion of the left renal artery w ith absence of previously seen thrombus. Both kidneys exhibit n ormal uptake. No significant compromise of the mesenteric vessels is identified. No definite renal infarct. Endovascular leak even e xtends into the iliac vessels and is fairly extensively seen posterior to the stent which extends downwards to the distal abdominal aorta. Mild stranding in the left retroperitoneum again identified. No vascular blush in this area. No hemoperitoneum. The liver demonstrates normal size, attenuation and contour without focal masses or enlargement. Patient status post cholecystectomy. No biliary distention is seen. The spleen is normal in size without focal defec ts, given limitation from arterial protocol employed. The adrenal glands are unremarkable without mass es. The pancreas demonstrates normal contour and att enuation without definite focal masses or enlargement. There is n o effacement of the peripancreatic fat to suggest an inflammatory pr ocess. There are no peripancreatic fluid collections. Mild distention of small bowel loops likely ria cative an ileus.. The IVC is unremarkable. There is no significant adenopathy within the ab domen. The kidneys demonstrate no hydronephrosis. No fl uid collections are identified. Kidneys exhibit normal functioning . IMPRESSION: Placement of an endovascular graft/stent extendi ng from the descending thoracic aorta into the abdomen and extending do wnwards to the distal aortic bifurcation. Endovascular leak is seen po sterior to the endovascular stent starting at approximately lev el of the diaphragms and continuing downwards to the distal abdominal aorta. Nonvisualization of thrombus previously identifi ed in the left renal artery with the left kidney demonstrating functi oning and uptake of contrast Impression By: Aniya Healy MD CAT SCAN - CT ANGIO CHEST 02/26 0370 Report Impression - Status: SIGNED Entered: 02/27/2020 0607 IMPRESSION: Placement of an endovascular stent in the descen ding thoracic aorta situated just distal to the left subclavian scot ry with nonvisualization of previously seen dissection. Endovascular leak starting at approximately level of the diaphragm s posterior to the graft and putamen downwards into the abdomen Mild CHF Limited assessment for PE given technical factor s without large central PE Location: H3 CTA of the abdomen conducted on 02/27/20 CLINICAL HISTORY: Known aortic dissection, back pain. Emergency room presentation.. COMPARISON EXAMS: CTA assessment of the chest an d abdomen of 02/09/20 TECHNIQUE: A CTA scan of the abdomen was conduct ed scanning in the axial plane acquiring contiguous 2.5 mm slice th ickness from the diaphragms through the pubic symphysis, using va scular protocol, with 100 mL of Isovue 370 injected for IV contrast. M aximum intensity projection imaging was acquired both in the sagi ttal and coronal plane. Volumetric imaging acquired. The examinat ion was performed on an updated helical CT scanner utilizing low-dose radiation technique. Automatic exposure control technique was utilize d to reduce radiation dose . FINDINGS: There has been placement of an endovascular ellis t in the aorta extending into the abdomen with endovascular alessandra k situated starting at approximately the level of the diaphragms rn house supervisor ior to the graft. This extending minimally above the diaphragm. Th e leak is fairly well confined. Reperfusion of the left renal artery w ith absence of previously seen thrombus. Both kidneys exhibit n ormal uptake. No significant compromise of the mesenteric vessels is identified. No definite renal infarct. Endovascular leak even e xtends into the iliac vessels and is fairly extensively seen posterior to the stent which extends downwards to the distal abdominal aorta. Mild stranding in the left retroperitoneum again identified. No vascular blush in this area. No hemoperitoneum. The liver demonstrates normal size, attenuation and contour without focal masses or enlargement. Patient status post cholecystectomy. No biliary distention is seen. The spleen is normal in size without focal defec ts, given limitation from arterial protocol employed. The adrenal glands are unremarkable without mass es. The pancreas demonstrates normal contour and att enuation without definite focal masses or enlargement. There is n o effacement of the peripancreatic fat to suggest an inflammatory pr ocess. There are no peripancreatic fluid collections. Mild distention of small bowel loops likely ria cative an ileus.. The IVC is unremarkable. There is no significant adenopathy within the ab domen. The kidneys demonstrate no hydronephrosis. No fl uid collections are identified. Kidneys exhibit normal functioning . IMPRESSION: Placement of an endovascular graft/stent extendi ng from the descending thoracic aorta into the abdomen and extending do wnwards to the distal aortic bifurcation. Endovascular leak is seen po sterior to the endovascular stent starting at approximately lev el of the diaphragms and continuing downwards to the distal abdominal aorta. Nonvisualization of thrombus previously identifi ed in the left renal artery with the left kidney demonstrating functi oning and uptake of contrast Impression By: Aniya Healy MD Lab Imaging Statement Laboratory radiographic studies reviewed and con sidered in the medical decision-making. Re-Evaluation MDM Re-Evaluation/Progress #1 Text/Dict Note CTA shows no endovascular le ak stent placement. Care will be transferred to Dr. Walker pending initiation of possible transfer to [facility] for further evaluation vascular surgery. Time of Re-Eval 0600 ED Course Medication(s) Ordered Medication(s) Ordered: Cardiovascular Drugs Sig/Ronan Start time Last Medication Dose Route Stop Time Status Admin Labetalol HCl 10 MG X1ED STA 02/26 0544 DC 09/ 3 IV 02/26 0545 0559 Hydralazine HCl 10 MG X1ED STA 02/26 0443 DC IV 02/26 0444 0511 Central Nervous System Agents Sig/Ronan Start time Last Medication Dose Route Stop Time Status Admin Fentanyl Citrate 100 MCG X1ED STA 02/26 0544 DC 02/26 IV 02/26 0545 0558 Aspirin 324 MG X1ED STA 02/26 0443 DC 02/26 PO 02/26 0444 0511 Morphine Sulfate 4 MG X1ED STA 02/26 0443 DC IV 02/26 0444 0512 Diagnostic Agents Sig/Ronan Start time Last Medication Dose Route Stop Time Status Admin Iopamidol 100 ML .STK-MED ONE 02/26 0539 DC IV 02/26 0540 0539 Gastrointestinal Drugs Sig/Ronan Start time Last Medication Dose Route Stop Time Status Admin Ondansetron HCl 4 MG X1ED STA 02/26 0552 DC IV 02/26 0553 0558 Ondansetron HCl 4 MG X1ED STA 02/26 0517 DC IV 02/26 0518 0519 Patient Discharge Departure Vital Signs/Condition Vital Signs First Documented: Result Date Time Pulse Ox 100 02/26 0442 B/P 226/133 02/26 0442 B/P Mean 164 02/26 0442 O2 Delivery Room air 02/26 442 Temp 103.0 02/26 0442 Pulse 98 02/26 0442 Resp 18 02/262 Last Documented: Result Date Time Pulse Ox 100 02/26 0532 B/P 226/133 02/26 0442 B/P Mean 164 02/26 0442 O2 Delivery Room air 02/26 442 Temp 103.0 02/26 0442 Pulse 98 02/26 0442 Resp 18 02/262 All vital signs available at the time of this en try have been reviewed. Condition Guarded Clinical Impression Clinical Impression Primary Impression: Aortic dissection Secondary Impressions: Dental abscess, Hypertens anupama emergency Discharge/Care Plan Referrals No Primary or Family Physician (PCP/Family) Critical Care Time Spent (minutes): 32 Services Performed Patient management by meIrving spent at bedside, Reviewing test results, Reviewing imaging, Discussing rosalia ent care, Documentation in record Separately billable procedures excluded from irving e. CC Note 1 Total critical care time [32 ] minutes. Total critical care time documented does not include time spent on separately billed proc edures or the services of residents, students, nurses or physician assista nts. I personally saw and examined the patient. I have reviewed all diagno stic interpretations and treatment plans as written. I was present for the omalley portions of any procedures performed and the inclusive time noted in any critical care statement. Critical care time includes patient m anagement by me, time spent at the patients bedside, time to review lab and imaging results, discussing patient care, documentation in the medical record, and time spent with the f amily or caregiver. at 0630 RPT #:[id number] END OF REPORT 2020-02-27 06:02:00-00:[address] [facility] ([facility]) EMERGENCY PROVIDER REPORT REPORT#:[id number] REPORT STATUS: Signed DATE:02/27/20 TIME: 601 PATIENT: JORGE GOINS UNIT #: [id number] ROOM/BED: AGE: 34 SEX: M PCP PHYS: No Primary or Family Ph ysician SERVICE AUTHOR: Sonja Castrejon * ALL edits or amendments must be made on the rimidi/computer document * Sonja Castrejon 02/27/20 0602: HPI-Chest Pain Under 40 General PCP none Presentation Chief Complaint Back pain, Nausea Hx Obtained From Patient, EMS Sudden in Onset? No Onset Occurred Today Symptom Duration Since onset Progression since Onset Gradually worsening Context of Onset At rest Location Back Severity: Onset Mild Severity: Current Moderate Associated with Reports: Nausea. Denies: Cough, non-prod uctive, Cough, productive, Cough, with hemoptysis, Fever, Shortness of breath, Syncope, Vomiting, Weakness, Wheezing. Exacerbated by Nothing Relieved by Nothing Context Similar Sx Previous Yes Free Text HPI Notes Free Text HPI Notes 34-year-old male with a hist ory of CHF malignant hypertension and recent aortic dissection brought in by EMS for evaluation of lower back pain and right dental abscess. Patient states the back pain began last night and progressively worsening prompting him to c all 911. patient was diagnosed with an acute aortic dissection in January 2020 wa s initially seen at this facility and transferred to [facility] in the [facility] due to se verity of dissection. Patient states that he was unable to purchase his antihypertensives after discharge and therefore has been noncompliant with all medications since surgery. EMS report patient significantly hypotensive pressures 240s /120s. Patient denies chest pain, shortness of breath or exposure to COVID-1 9. Patient does report lower back pain and discomfort. EMS reports they attem pted to transfer the patient back to [facility] as his fan rgery happened less than 30 days ago however patient refused requesting several other facilities incl uding this facility, but declined to return to [facility] at that time. Risk-Chest Pain Under 40 Risk Stratification )( Coronary Artery Disease Risk factors reviewed )( Pulmonary Embolism Risk factors reviewed )( AMI-Aspirin Aspirin Last 24 Hrs On arrival )( HEART for MACE )( HEART for MACE Response Value History High index of suspicion 2 ECG Interpretation Nonspec repol disturb 1 Age Age under 45 0 Risk Factors for CAD 3+ CAD risk factors 2 Troponin < or = to NL troponin 0 Total 5 Review of Systems ROS Statements All systems rev neg except as marked. Basic Review of Systems Basic ROS EYES: No redness, ENT: No sore throat, : No dysuria/frequency, HEM: No bleeding/bruising Focused Review of Systems Respiratory Denies: Shortness of breath, Wheezing. Cardiovascular Denies: Chest pain. Musculoskeletal Reports: Back pain. Additional Review of Systems Ears/Nose/Throat Reports: Toothache. Past Medical History - Adult Stated Complaint CP,BP Allergies Coded Allergies: Iodine and Iodide Containing Produc (Severe, HIV ES 11/19/19) shellfish derived (Intermediate, RASH 11/19/19) Home Medications Active Scripts ASPIRIN EC (ECOTRIN) 81 MG PO DAILY 30 Days #30 TABS Prov: 05/10/19 CARVEDILOL (COREG) 25 MG PO BID MEALS 30 Days #60 TAB Prov: 05/10/19 ACETAMINOPHEN/CODEINE (TYLENOL WITH CODE INE #4 300/60 MG) 1 TAB PO Q6H PRN PRN PAIN 7 Days #20 TAB Prov: 05/10/19 ATORVASTATIN (LIPITOR) 20 MG PO BEDTIME 30 Days #30 TABS Prov: 11/23/19 LOSARTAN (COZAAR) 100 MG PO DAILY LOSARTAN (COZAAR) 100 MG PO DAILY #30 TAB Prov: 11/23/19 NIFEdipine CC (ADALAT CC) 90 MG PO Q12HR NIFEdipine CC (ADALAT CC) 90 MG PO Q12HR #60 TA B Prov: 11/23/19 HYDROCHLOROTHIAZIDE (HYDRODIURIL) 25 MG PO DAILY HYDROCHLOROTHIAZIDE (HYDRODIURIL) 25 MG PO THOMAS Y #30 TAB Prov: 11/23/19 Reported Medications ALBUTEROL (PROAIR HFA 90 MCG/ACT 8.5 GM) 2 PUFF INH RTQ6H PRN PRN SOB Past Medical History: Reports: Congestive heart failure, Hypertension. Additional Medical History HTN, CHF Additional Surgical History CCY Family History: Reports: Diabetes, Hypertension. Additional Family History Mother alive history of diabetes hypertension Father unknown Alcohol Use Denies EtOH use Drug Use Denies recreational drugs Smoking status for patients 13 years old or olde r: Unknown,if ever smoked Other Social History Local resident Additional Social History single he works in [employer] he denies any alcoh ol use or tobacco use Physical Exam Vital Signs Vital Signs First Documented: Result Date Time Pulse Ox 100 02/26 0442 B/P 226/133 02/26 0442 B/P Mean 164 02/26 0442 O2 Delivery Room air 02/26 044 Temp 103.0 02/26 442 Pulse 98 02/26 442 Resp 18 02/26 442 Last Documented: Result Date Time Pulse Ox 100 02/26 0532 B/P 226/133 02/26 442 B/P Mean 164 02/26 442 O2 Delivery Room air 02/26 442 Temp 103.0 02/26 442 Pulse 98 02/26 442 Resp 18 02/26 442 Review of Vital Signs Reviewed Focused PE General/Const General/Const Awake, Alert, Well developed, Wel l hydrated, Well nourished, Cooperative Distress/Hydration Distress mild. Behavior Anxious. Appearance/Presentation In pain, Uncomfortable. Eyes Eyes PERRL MS Neck Neck Supple, Full range of motion, No s welling, Non-tender, No masses, No JVD Resp/Chest Respiratory/Chest Breath sounds NL, Breath soun ds = bilat, No respiratory distress, No rales, No rhonchi, No wheezing, No chest tenderness Cardiovascular Cardiovascular Heart rate NL, Regular rhythm, H eart sounds NL, No murmurs, Peripheral circulation NL, Pulses = bilaterally, No gross BP differential Abdomen/GI Abdomen/GI Soft, Non-tender, No guarding, No re bound, BS normoactive, No distention MS Back Back Inspection NL, Non-tender, No CVA tenderne ss MS Lower Extrem Lower Ext/Pelvis/MS Inspection NL, Non-tender, No erythema, No deformity, Neurologic intact, Vascular intact, No edema Text/Dict Notes 2+ pitting edema to the bilateral lower extremities extending from the feet to the upper lower leg. Skin Skin Color NL, Warm, Dry, Turgor NL Neurologic Neurologic Oriented X3, Speech NL, No motor def icits, No sensory deficits Psychiatric Psychiatric Affect NL, Mood NL, Thought content NL Additional PE Ears/Nose/Throat Text/Dict Notes Large cavity in the right lower middle molar Interpretation Diagnostics Lab Results Interpretation Results Laboratory Tests 02/27/20 0507: [Embedded Image Not Available] Laboratory Tests: 02/26 02/26 02/26 02/26 0534 0529 0523 0507 Chemistry Sodium (137 - 145 mmol/L) 135 L Potassium (3.4 - 5.0 mmol/L) 4.3 Chloride (98 - 107 mmol/L) 104 Carbon Dioxide (22 - 30 mmol/L) 25 BUN (9 - 20 mg/dL) 15 Creatinine (0.7 - 1.3 mg/dL) 1.6 H POC Creatinine (0.66 - 1.25 mg/dL) 1.7 H Glomerular Filtr Rate (>60) 64 Glucose (74 - 106 mg/dL) 94 Calcium (8.4 - 10.2 mg/dL) 8.7 Magnesium (1.6 - 2.3 mg/dL) 1.6 Total Bilirubin (0.2 - 1.3 mg/dL) 1.7 H Conjugated Bilirubin (0 - 0.3 mg/dL) 0 Unconjugated Bilirubin (0 - 1.1 mg/dL) 0.7 AST (15 - 46 U/L) 33 ALT (0 - 34 U/L) 21 Total Alk Phosphatase (38 - 126 U/L) 142 H Rapid Troponin I (0.00 - 0.079 ng/mL) 0.04 Total Protein (6.3 - 8.2 g/dL) 7.4 Albumin (3.5 - 5.0 g/dL) 3.6 Lipase (23 - 300 U/L) 25 Coagulation INR 1.5 PTT (Nathan) (23.4 - 37.0 SECONDS) 38.3 H PT Patient/Control Mix (9.2 - 12.1 SECONDS) 17. 2 H Hematology WBC (5.0 - 12.0 x10 3/uL) 6.4 RBC (4.70 - 6.10 x10 6/uL) 3.89 L Hgb (14.0 - 18.0 g/dL) 11.0 L Hct (37.0 - 49.0 %) 34.9 L MCV (80 - 94 fL) 90 MCH (27 - 31 pg) 28.3 MCHC (33 - 37 g/dL) 31.5 L RDW (11.5 - 15.5 %) 14.9 Plt Count (130 - 400 x10 3/uL) 277 MPV (9.4 - 16.4 fL) 9.7 Neut % (Auto) (43 - 65 %) 81.3 H Lymph % (Auto) (20.5 - 45.5 %) 6.4 L Citrus % (Auto) (5.5 - 11.7 %) 11.2 Eos % (Auto) (0.9 - 2.9 %) 0.2 L Baso % (Auto) (0.2 - 1.0 %) 0.3 Neut # (Auto) (2.2 - 4.8 x10 3/uL) 5.21 H Lymph # (Auto) (1.3 - 2.9 x10 3/uL) 0.41 L Citrus # (Auto) (0.3 - 0.8 x10 3/uL) 0.72 Eos # (Auto) (0.0 - 0.2 x10 3/uL) 0.01 Baso # (Auto) (0.0 - 0.1 x10 3/uL) 0.02 Immature Gran % (0.0 - 2.0 %) 0.6 Nucleated RBC % (0 - 1.0 %) 0.0 Serology Nasal/Oral COVID-19 PCR (NEGATIVE) Negative Recent Impressions: RADIOLOGY - XR CHEST 1 V 02/26 519 Report Impression - Status: SIGNED Entered: 02/27/2020 0531 IMPRESSION: Moderately enlarged cardiac silhouette. Impression By: Raymundo Zelaya CAT SCAN - CTA ABD PEL W CONT 02/26 0537 Report Impression - Status: SIGNED Entered: 02/27/2020 0607 IMPRESSION: Placement of an endovascular stent in the descen ding thoracic aorta situated just distal to the left subclavian scot ry with nonvisualization of previously seen dissection. Endovascular leak starting at approximately level of the diaphragm s posterior to the graft and putamen downwards into the abdomen Mild CHF Limited assessment for PE given technical factor s without large central PE Location: H3 CTA of the abdomen conducted on 02/27/20 CLINICAL HISTORY: Known aortic dissection, back pain. Emergency room presentation.. COMPARISON EXAMS: CTA assessment of the chest an d abdomen of 02/09/20 TECHNIQUE: A CTA scan of the abdomen was conduct ed scanning in the axial plane acquiring contiguous 2.5 mm slice th ickness from the diaphragms through the pubic symphysis, using va scular protocol, with 100 mL of Isovue 370 injected for IV contrast. M aximum intensity projection imaging was acquired both in the sagi ttal and coronal plane. Volumetric imaging acquired. The examinat ion was performed on an updated helical CT scanner utilizing low-dose radiation technique. Automatic exposure control technique was utilize d to reduce radiation dose . FINDINGS: There has been placement of an endovascular ellis t in the aorta extending into the abdomen with endovascular alessandra k situated starting at approximately the level of the diaphragms rn house supervisor ior to the graft. This extending minimally above the diaphragm. Th e leak is fairly well confined. Reperfusion of the left renal artery w ith absence of previously seen thrombus. Both kidneys exhibit n ormal uptake. No significant compromise of the mesenteric vessels is identified. No definite renal infarct. Endovascular leak even e xtends into the iliac vessels and is fairly extensively seen posterior to the stent which extends downwards to the distal abdominal aorta. Mild stranding in the left retroperitoneum again identified. No vascular blush in this area. No hemoperitoneum. The liver demonstrates normal size, attenuation and contour without focal masses or enlargement. Patient status post cholecystectomy. No biliary distention is seen. The spleen is normal in size without focal defec ts, given limitation from arterial protocol employed. The adrenal glands are unremarkable without mass es. The pancreas demonstrates normal contour and att enuation without definite focal masses or enlargement. There is n o effacement of the peripancreatic fat to suggest an inflammatory pr ocess. There are no peripancreatic fluid collections. Mild distention of small bowel loops likely ria cative an ileus.. The IVC is unremarkable. There is no significant adenopathy within the ab domen. The kidneys demonstrate no hydronephrosis. No fl uid collections are identified. Kidneys exhibit normal functioning . IMPRESSION: Placement of an endovascular graft/stent extendi ng from the descending thoracic aorta into the abdomen and extending do wnwards to the distal aortic bifurcation. Endovascular leak is seen po sterior to the endovascular stent starting at approximately lev el of the diaphragms and continuing downwards to the distal abdominal aorta. Nonvisualization of thrombus previously identifi ed in the left renal artery with the left kidney demonstrating functi oning and uptake of contrast Impression By: Aniya Healy MD CAT SCAN - CT ANGIO CHEST 02/26 0537 Report Impression - Status: SIGNED Entered: 02/27/2020 0607 IMPRESSION: Placement of an endovascular stent in the descen ding thoracic aorta situated just distal to the left subclavian scot ry with nonvisualization of previously seen dissection. Endovascular leak starting at approximately level of the diaphragm s posterior to the graft and putamen downwards into the abdomen Mild CHF Limited assessment for PE given technical factor s without large central PE Location: H3 CTA of the abdomen conducted on 02/27/20 CLINICAL HISTORY: Known aortic dissection, back pain. Emergency room presentation.. COMPARISON EXAMS: CTA assessment of the chest an d abdomen of 02/09/20 TECHNIQUE: A CTA scan of the abdomen was conduct ed scanning in the axial plane acquiring contiguous 2.5 mm slice th ickness from the diaphragms through the pubic symphysis, using va scular protocol, with 100 mL of Isovue 370 injected for IV contrast. M aximum intensity projection imaging was acquired both in the sagi ttal and coronal plane. Volumetric imaging acquired. The examinat ion was performed on an updated helical CT scanner utilizing low-dose radiation technique. Automatic exposure control technique was utilize d to reduce radiation dose . FINDINGS: There has been placement of an endovascular ellis t in the aorta extending into the abdomen with endovascular alessandra k situated starting at approximately the level of the diaphragms rn house supervisor ior to the graft. This extending minimally above the diaphragm. Th e leak is fairly well confined. Reperfusion of the left renal artery w ith absence of previously seen thrombus. Both kidneys exhibit n ormal uptake. No significant compromise of the mesenteric vessels is identified. No definite renal infarct. Endovascular leak even e xtends into the iliac vessels and is fairly extensively seen posterior to the stent which extends downwards to the distal abdominal aorta. Mild stranding in the left retroperitoneum again identified. No vascular blush in this area. No hemoperitoneum. The liver demonstrates normal size, attenuation and contour without focal masses or enlargement. Patient status post cholecystectomy. No biliary distention is seen. The spleen is normal in size without focal defec ts, given limitation from arterial protocol employed. The adrenal glands are unremarkable without mass es. The pancreas demonstrates normal contour and att enuation without definite focal masses or enlargement. There is n o effacement of the peripancreatic fat to suggest an inflammatory pr ocess. There are no peripancreatic fluid collections. Mild distention of small bowel loops likely ria cative an ileus.. The IVC is unremarkable. There is no significant adenopathy within the ab domen. The kidneys demonstrate no hydronephrosis. No fl uid collections are identified. Kidneys exhibit normal functioning . IMPRESSION: Placement of an endovascular graft/stent extendi ng from the descending thoracic aorta into the abdomen and extending do wnwards to the distal aortic bifurcation. Endovascular leak is seen po sterior to the endovascular stent starting at approximately lev el of the diaphragms and continuing downwards to the distal abdominal aorta. Nonvisualization of thrombus previously identifi ed in the left renal artery with the left kidney demonstrating functi oning and uptake of contrast Impression By: Aniya Healy MD Lab Imaging Statement Laboratory radiographic studies reviewed and con sidered in the medical decision-making. Re-Evaluation MDM Re-Evaluation/Progress #1 Text/Dict Note CTA shows no endovascular le ak stent placement. Care will be transferred to Dr. Walker pending initiation of possible transfer to [facility] for further evaluation vascular surgery. Time of Re-Eval 0600 ED Course Medication(s) Ordered Medication(s) Ordered: Cardiovascular Drugs Sig/Ronan Start time Last Medication Dose Route Stop Time Status Admin Esmolol HCl 250 ML .Q24H ONE 02/26 0630 CKD IV 02/27 0629 Labetalol HCl 10 MG X1ED STA 02/26 0544 DC IV 02/26 0545 0559 Hydralazine HCl 10 MG X1ED STA 02/26 0443 DC IV 02/26 0444 0511 Central Nervous System Agents Sig/Ronan Start time Last Medication Dose Route Stop Time Status Admin Fentanyl Citrate 100 MCG X1ED STA 02/26 0544 DC 02/26 IV 02/26 0545 0558 Aspirin 324 MG X1ED STA 02/26 0443 DC 02/26 PO 02/26 0444 0511 Morphine Sulfate 4 MG X1ED STA 02/26 0443 DC 0 02/26 IV 02/26 0444 0512 Diagnostic Agents Sig/Ronan Start time Last Medication Dose Route Stop Time Status Admin Iopamidol 100 ML .STK-MED ONE 02/26 0539 DC IV 02/26 0540 0539 Gastrointestinal Drugs Sig/Ronan Start time Last Medication Dose Route Stop Time Status Admin Ondansetron HCl 4 MG X1ED STA 02/26 0552 DC IV 02/26 0553 0558 Ondansetron HCl 4 MG X1ED STA 02/26 0517 DC IV 02/26 0518 0519 Patient Discharge Departure Vital Signs/Condition Vital Signs First Documented: Result Date Time Pulse Ox 100 02/26 0442 B/P 226/133 02/26 0442 B/P Mean 164 09/03 0442 O2 Delivery Room air 02/26 442 Temp 103.0 02/26 0442 Pulse 98 02/26 0442 Resp 18 02/26 442 Last Documented: Result Date Time Pulse Ox 100 02/26 0532 B/P 226/133 02/26 442 B/P Mean 164 02/26 442 O2 Delivery Room air 02/26 442 Temp 103.0 02/26 0442 Pulse 98 02/26 0442 Resp 18 02/262 All vital signs available at the time of this en try have been reviewed. Condition Guarded Clinical Impression Clinical Impression Primary Impression: Aortic dissection Secondary Impressions: Dental abscess, Hypertens anupama emergency Discharge/Care Plan Referrals No Primary or Family Physician (PCP/Family) Critical Care Time Spent (minutes): 32 Services Performed Patient management by Irving valerio spent at bedside, Reviewing test results, Reviewing imaging, Discussing rosalia ent care, Documentation in record Separately billable procedures excluded from irving brown. CC Note 1 Total critical care time [32 ] minutes. Total critical care time documented does not include time spent on separately billed proc edures or the services of residents, students, nurses or physician assista nts. I personally saw and examined the patient. I have reviewed all diagno stic interpretations and treatment plans as written. I was present for the omalley portions of any procedures performed and the inclusive time noted in any critical care statement. Critical care time includes patient m anagement by me, time spent at the patients bedside, time to review lab and imaging results, discussing patient care, documentation in the medical record, and time spent with the f amily or caregiver. Kathy Walker 02/27/20 0650: HPI-Chest Pain Under 40 General Initial Greet Date/Time 02/27/20 044 Presentation )( Migration/Movement Upper to lower back Re-Evaluation MDM Free Text MDM Notes Free Text MDM Notes Aortic endovascular leak - level of diaphragm an d descending to iliacs pt got aortic stent 02/13- did not fill BP meds- coming back here with severe pain - belly down to legs- Dr. Cardoza vascular surgery consulted, agrees to see patient. placed on Esmolol drip- admit to ICU Patient Discharge Departure Disposition Decision Admit Admit Physician Name Papi England MD Admit Physician Final Touch Up Painter Request Time 0651 Request Date 02/27/20 )( Admission Accepts Yes )( Accepted Time 0651 )( Accepted Date 02/27/20 Call Information will see patient Discharge/Care Plan Counseled Regarding Diagnosi s, Lab results, Imaging studies, Need for admission at 0630 at 0653 RPT #:[id number] END OF REPORT 2020-02-09 03:22:00-00:00 [facility] EMERGENCY PROVIDER REPORT REPORT#:[id number] REPORT STATUS: Signed DATE:02/09/20 TIME: 321 PATIENT: JORGE GOINS UNIT #: [id number] ROOM/BED: AGE: 34 SEX: M PCP PHYS: No Primary or Family Ph ysician SERVICE AUTHOR: Lulu Rhodes MD * ALL edits or amendments must be made on the rimidi/computer document * Lulu Rhodes 02/09/20 0322: Past Medical History - Adult Stated Complaint LOWER BACK PAIN, LEG PAIN Allergies Coded Allergies: Iodine and Iodide Containing Produc (Severe, HIV ES 11/19/19) shellfish derived (Intermediate, RASH 11/19/19) Home Medications Active Scripts ASPIRIN EC (ECOTRIN) 81 MG PO DAILY 30 Days #30 TABS Prov: 05/10/19 CARVEDILOL (COREG) 25 MG PO BID MEALS 30 Days #60 TAB Prov: 05/10/19 ACETAMINOPHEN/CODEINE (TYLENOL WITH CODE INE #4 300/60 MG) 1 TAB PO Q6H PRN PRN PAIN 7 Days #20 TAB Prov: 05/10/19 ATORVASTATIN (LIPITOR) 20 MG PO BEDTIME 30 Days #30 TABS Prov: 11/23/19 LOSARTAN (COZAAR) 100 MG PO DAILY LOSARTAN (COZAAR) 100 MG PO DAILY #30 TAB Prov: 11/23/19 NIFEdipine CC (ADALAT CC) 90 MG PO Q12HR NIFEdipine CC (ADALAT CC) 90 MG PO Q12HR #60 TA B Prov: 11/23/19 HYDROCHLOROTHIAZIDE (HYDRODIURIL) 25 MG PO DAILY HYDROCHLOROTHIAZIDE (HYDRODIURIL) 25 MG PO THOMAS Y #30 TAB Prov: 11/23/19 Reported Medications ALBUTEROL (PROAIR HFA 90 MCG/ACT 8.5 GM) 2 PUFF INH RTQ6H PRN PRN SOB Physical Exam Vital Signs Review of Vital Signs Reviewed Focused PE General/Const General/Const Alert, appears uncomfrtable MS Back Back Inspection NL, LCVAT Neurologic Neurologic Speech NL Free Text PE Notes Free Text PE Notes Gen: A O x3, +appears very unocomfrtable Skin: Appropriate color, well-perfused, warm, dr y, no wounds or lumps HEENT: NCAT, EOM intact, TM normal bilaterally, mucous membranes moist CV: Regular rate and rhythm, normal S1, S2, no m urmurs, clicks, rubs, gallops Pulm: Spontaneous respiratio ns, no respiratory distress, no wheezing, no rales, no rhonchi Abd: +LVCAT, Nondistended, soft, nontender, no g uarding or rebound, no CVA tenderness : Deferred MSK: - RUE: FROM, no deformities, no swelling, no adalberto thema, nontender, sensation intact, 2+ radial pulse - LUE: FROM, no deformities, no swelling, no adalberto thema, nontender, sensation intact, 2+ radial pulse - RLE: FROM, no deformities, no swelling, no adalberto thema, nontender, sensation intact, 2+ DP - LLE: FROM, no deformities, no swelling, no adalberto thema, nontender, sensation intact, 2+ DP Neuro: - GCS 15: E-4, V-5, M-6 - Alert and oriented x3, no nystagmus, cranial nerves II through XII intact, 5/5 sensation throughout, 5/5 strength throughout, n ormal [id number] Re-Evaluation MDM Free Text MDM Notes Additional Text 0600 - radiology called - CTAP non con showing R P hemorrgage, pericardial effusion, taking for stat CTA chest, abd, pelvis - labetalol 20mg IV push, nicardipine gtt ordered After rerutning from CT - to ld nursing that actually had had intercourse around 1a, felt pop in left groin, numbness, went to eep. Woke up, turned to left, felt sharp chest pain, left upper chest with rad iation down left abd. Patient Discharge Departure Discharge/Care Plan Referrals No Primary or Family Physician (PCP/Family) Amelia Limon 02/09/20 0336: HPI-Back Pain Under 40 Presentation Chief Complaint Pain, flank L Hx Obtained From Patient Onset Occurred Today Symptom Duration Since onset Progression since Onset Unchanged Caused by No trauma by history Location Flank L Quality Same as prior Radiation No: Does not radiate. Severity: Onset Pain level 10 out of 10 Severity: Current Pain level 10 out of 10 Associated with Reports: Tingling, lower ext R. Denies: Nausea, Vomiting. Associated Other Pt denies other symptoms Free Text HPI Notes Free Text HPI Notes 34 yo M with PMH of HTN and asthma prese nts to the ER with the sudden onset of left flank pain. Pt states that it started this morning out of a sudden, the pain radiates to the left shoulder and left legs . Pain is 10/10. No previous episode before. No n/v/d. Review of Systems Focused Review of Systems Constitutional Denies: Chills, Fatigue, Fever. Respiratory Denies: Cough, non-productive, Cough, productive . Cardiovascular Denies: Chest pain, Dyspnea on exertion. GI Reports: Abdominal pain. Denies: Hematemesis, He matochezia, Nausea, Vomiting. Male Reports: Flank pain. Denies: Dysuria. Musculoskeletal Denies: Back pain, Joint pain. Neurologic Denies: Headache, Syncope. Physical Exam Vital Signs Vital Signs First Documented: Result Date Time Pulse Ox 97 02/08 031 B/P 202/128 02/089 B/P Mean 152 02/08 319 O2 Delivery Room air 02/08 319 Temp 37.0 02/08 319 Pulse 80 02/08 0319 Resp 16 02/08 0319 O2 Flow Rate 2.425326 02/08 0646 Last Documented: Result Date Time Pulse Ox 96 02/08 0654 B/P 188/113 02/08 0654 B/P Mean 138 02/08 0654 O2 Delivery Nasal cannula 02/08 654 O2 Flow Rate 3.565261 02/08 06 Pulse 67 02/08 0654 Resp 16 02/08 0654 Temp 37.0 02/08 319 Review of Vital Signs Reviewed, Vital signs norm al Focused PE General/Const General/Const Awake, Alert, Well appearing, Wel l developed, Cooperative, Not toxic appearing MS Neck Neck pain on the neck Resp/Chest Respiratory/Chest Atraumatic, Breath sounds NL, Breath sounds = bilat, No respiratory distress, No wheezing Cardiovascular Cardiovascular Heart rate NL, Regular rhythm, H eart sounds NL Abdomen/GI Abdomen/GI Atraumatic, Soft, Non-tender, No gua rding, No rebound, No hernia, No palpable mass, No pulsatile mass MS Back Back Atraumatic, Inspection NL, Non-tender Neurologic Neurologic Oriented X3, Speech NL Interpretation Diagnostics Lab Results Interpretation Results Laboratory Tests 02/09/20 0621: [Embedded Image Not Available] Laboratory Tests: 02/08 02/08 02/08 0632 0621 0545 Chemistry Sodium (137 - 145 mmol/L) 136 L Potassium (3.4 - 5.0 mmol/L) 3.1 L Chloride (98 - 107 mmol/L) 103 Carbon Dioxide (22 - 30 mmol/L) 25 BUN (9 - 20 mg/dL) 26 H Creatinine (0.7 - 1.3 mg/dL) 2.0 H Glomerular Filtr Rate (>60) 50 L Glucose (74 - 106 mg/dL) 105 Calcium (8.4 - 10.2 mg/dL) 8.0 L Rapid Troponin I (0.00 - 0.079 ng/mL) 0.03 Coagulation INR 1.5 PTT (Nathan) (23.4 - 37.0 SECONDS) 32.4 PT Patient/Control Mix (9.2 - 12.1 SECONDS) 16. 3 H Hematology WBC (5.0 - 12.0 x10 3/uL) 8.1 RBC (4.70 - 6.10 x10 6/uL) 4.61 L Hgb (14.0 - 18.0 g/dL) 13.2 L Hct (37.0 - 49.0 %) 42.0 MCV (80 - 94 fL) 91 MCH (27 - 31 pg) 28.6 MCHC (33 - 37 g/dL) 31.4 L RDW (11.5 - 15.5 %) 15.5 Plt Count (130 - 400 x10 3/uL) 233 MPV (9.4 - 16.4 fL) 10.0 Neut % (Auto) (43 - 65 %) 88.5 H Lymph % (Auto) (20.5 - 45.5 %) 6.0 L Citrus % (Auto) (5.5 - 11.7 %) 4.9 L Eos % (Auto) (0.9 - 2.9 %) 0.1 L Baso % (Auto) (0.2 - 1.0 %) 0.1 L Neut # (Auto) (2.2 - 4.8 x10 3/uL) 7.16 H Lymph # (Auto) (1.3 - 2.9 x10 3/uL) 0.49 L Citrus # (Auto) (0.3 - 0.8 x10 3/uL) 0.40 Eos # (Auto) (0.0 - 0.2 x10 3/uL) 0.01 Baso # (Auto) (0.0 - 0.1 x10 3/uL) 0.01 Immature Gran % (0.0 - 2.0 %) 0.4 Nucleated RBC % (0 - 1.0 %) 0.0 Urines Urine Color (Yellow) Yellow Urine Appearance (Clear) Clear Urine pH (5.0 - 8.0) 5.0 Ur Specific Commerce (<1.030) 1.027 Urine Protein (Negative mg/dL) NEGATIVE Urine Glucose (UA) (Negative) Negative Urine Ketones (Negative mg/dL) Trace H Urine Blood (Negative) Negative Urine Nitrite (Negative) Negative Urine Bilirubin (Negative) Negative Urine Urobilinogen (Negative mg/dL) Negative Ur Leukocyte Esterase (Negative) NEGATIVE Urine RBC (<4 - 5 /HPF) 0-3 Urine WBC (<4 - 5 /HPF) 0-3 Ur Squamous Epith Cells (0 - 5 (RARE) /HPF) 0-5 (RARE) Recent Impressions: CAT SCAN - CT ABD PELVIS W/O CONT 02/08 0523 Report Impression - Status: SIGNED Entered: 02/09/2020 0546 Impression: Hyperdense fluid seen tracking along the left re troperitoneum measuring at least 4.9 x 8.6 x 11 cm concerning for spontaneous retroperitoneal hemorrhage Additional findings as detailed above Impression By: [email or web address] Cuca Góemz MD CAT SCAN - CTA ABD PEL W CONT 02/08 0603 Report Impression - Status: SIGNED Entered: 02/09/2020 0643 IMPRESSION: Similar appearance of a left retroperitoneal hem atoma without hyperdense blush to indicate active extravasatio n. 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 Significant hypodensit y within the left renal and right external iliac arteries are conc erning for thrombus. Subtle superior left renal pole hypoattenuation and mild asymmetric left perinephric stranding, this could reflect a renal infarct. Scattered pulmonary groundglass opacities with b ibasilar infiltrates, nonspecific although may be seen with pulmonary edema and bibasilar atelectasis/pneumonitis. Small pericardial effusion. Cardiomegaly. Somewhat mottled appearance the bones, nonspecif ic, although may be seen with renal osteodystrophy, correlate clinic ally. FOR INTERNAL CODING PURPOSES ONLY RESULT CODE: CVRMD These findings were discussed with Dr. Campoverde via telephone at 02/09/2020 6:40 AM. Impression By: [email or web address] - HangOlinda MD CAT SCAN - CT ANGIO CHEST 02/08 0603 Report Impression - Status: SIGNED Entered: 02/09/2020 0643 IMPRESSION: Similar appearance of a left retroperitoneal hem atoma without hyperdense blush to indicate active extravasatio n. 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 Significant hypodensit y within the left renal and right external iliac arteries are conc erning for thrombus. Subtle superior left renal pole hypoattenuation and mild asymmetric left perinephric stranding, this could reflect a renal infarct. Scattered pulmonary groundglass opacities with b ibasilar infiltrates, nonspecific although may be seen with pulmonary edema and bibasilar atelectasis/pneumonitis. Small pericardial effusion. Cardiomegaly. Somewhat mottled appearance the bones, nonspecif ic, although may be seen with renal osteodystrophy, correlate clinic ally. FOR INTERNAL CODING PURPOSES ONLY RESULT CODE: [id number] These findings were discussed with Dr. Campoverde via telephone at 02/09/2020 6:40 AM. Impression By: LourdesOlinda Kraft MD Re-Evaluation MDM ED Course Medication(s) Ordered Medication(s) Ordered: Cardiovascular Drugs Sig/Ronan Start time Last Medication Dose Route Stop Time Status Admin Esmolol HCl 250 ML .Q24H ONE 02/08 0630 CKD IV 02/09 0629 0628 Nicardipine HCl 250 ML .Q24H ONE 02/08 0600 AC / IV 02/09 0559 0602 Labetalol HCl 20 MG X1ED STA 02/08 0554 DC 01/24 6 IV 02/08 0555 0602 Central Nervous System Agents Sig/Ronan Start time Last Medication Dose Route Stop Time Status Admin Morphine Sulfate 4 MG X1ED STA 02/08 0702 DC IV 02/08 0703 Ketorolac 15 MG X1ED STA 02/08 0455 DC 02/08 Tromethamine IV 02/08 0456 0459 Morphine Sulfate 4 MG X1ED STA 02/08 0455 DC IV 02/08 0456 0459 Fentanyl Citrate 50 MCG X1ED STA 02/08 0333 DC 08/ IV 02/08 0334 0340 Acetaminophen/ 1 TAB X1ED STA 02/08 0323 DC Codeine Phosphate PO 02/08 0324 0330 Diazepam 5 MG X1ED STA 02/08 0322 DC 08/ PO / 0323 0329 Ibuprofen 800 MG X1ED STA 02/08 0322 DC 08/ PO 02/08 0323 0330 Diagnostic Agents Sig/Ronan Start time Last Medication Dose Route Stop Time Status Admin Iopamidol 100 ML .STK-MED ONE 02/08 0627 DC 08 IV 02/08 0628 0627 Electrolytic, Caloric, And Camila Sig/Ronan Start time Last Medication Dose Route Stop Time Status Admin Sodium Chloride 1,000 ML X1ED STA 02/08 0555 DC 02/08 IV 02/08 0556 0603 Sodium Chloride 1,000 ML X1ED STA 02/08 0408 DC 08 IV 02/08 0409 0432 Gastrointestinal Drugs Sig/Ronan Start time Last Medication Dose Route Stop Time Status Admin Ondansetron HCl 4 MG X1ED STA 02/08 0554 DC IV 02/08 0555 0602 Patient Discharge Departure Vital Signs/Condition Vital Signs First Documented: Result Date Time Pulse Ox 97 02/08 319 B/P 202/128 02/08 319 B/P Mean 152 02/08 319 O2 Delivery Room air 02/08 319 Temp 37.0 02/08 319 Pulse 80 02/08 319 Resp 16 02/08 319 O2 Flow Rate 2.173629 02/08 0646 Last Documented: Result Date Time Pulse Ox 96 02/08 0654 B/P 188/113 02/08 0654 B/P Mean 138 02/08 0654 O2 Delivery Nasal cannula 02/08 654 O2 Flow Rate 3.520758 02/08 654 Pulse 67 02/08 0654 Resp 16 02/08 0654 Temp 37.0 02/08 319 All vital signs available at the time of this en try have been reviewed. Anna Campoverde Shawn 02/09/20 0612: HPI-Back Pain Under 40 General Initial Greet Date/Time 02/09/20322 Presentation )( Sudden in Onset? Yes Free Text HPI Notes Free Text HPI Notes PT REPORTS HE WAS HAVING SEXUAL ACTIVITY AT 1 AM , WHEN HE FELT SUDDEN PAIN TO HIS LEFT CHEST AND LEFT ABDOMEN. CURRENTLY MORE COMFORTABLE, HAS 4/10 PAIN TO LEF T ABDOMEN STILL. PT REPORTS HE HAS BEEN COMPLIANT WITH HIS HTN ME DICATIONS. Review of Systems ROS Statements All systems rev neg except as marked. Focused Review of Systems Cardiovascular Reports: Chest pain. GI Reports: Abdominal pain. Past Medical History - Adult Additional Medical History HTN, CHF Additional Surgical History CCY Smoking status for patients 13 years old or olde r: Never Smoker Physical Exam Vital Signs Review of Vital Signs Reviewed Focused PE General/Const General/Const Awake, Alert, Well appearing MS Neck Neck Atraumatic, Supple, No meningismus, Full r patrick of motion, No swelling, Non-tender, No midline vertebral tend, No masses , No crepitus Resp/Chest Respiratory/Chest Breath sounds NL, Breath soun ds = bilat, No respiratory distress, No rales, No rhonchi, No wheezing Cardiovascular Cardiovascular Heart rate NL, Regular rhythm, H eart sounds NL, Peripheral circulation NL Abdomen/GI Abdomen/GI Soft, Non-tender, No guarding, No re bound MS Back Back Atraumatic, Inspection NL, Full range of m otion, Painless range of motion, Non-tender, No midline vertebral tend, N o paraspinal tenderness, No muscle spasm, Straight leg raise neg, No CVA ten derness MS Lower Extrem Lower Ext/Pelvis/MS Inspection NL, No swelling, Non-tender, No erythema, No deformity, Neurologic intact, Vascular intact, N o edema Neurologic Neurologic Oriented X3, Speech NL, No motor def icits, No sensory deficits, Reflexes equal bilat Additional PE MS Head Head Atraumatic, Normocephalic Eyes Eyes Atraumatic, PERRL, EOMI Ears/Nose/Throat Ears/Nose/Throat Atraumatic, Airway patent, Muc ous membranes moist MS Upper Extrem Upper Extremity/MS Atraumatic, Inspection NL, F ull range of motion Skin Skin Atraumatic, Color NL, No rash, Warm Psychiatric Psychiatric Affect NL, Mood NL Interpretation Diagnostics ECG #1 Interpretation Text/Dict Note NSR 73, NL AXIS, LONG QTC 566, T INVERSIONS INF LAT LEADS, ISCHEMIC CHANGES. Date 02/09/20 Time 0626 Re-Evaluation MDM Free Text MDM Notes Free Text MDM Notes 0615: I D/W DR. JUAREZ [employer]WING SUPERVISOR [facility] [place], RECOMMEND TRANSFER. 06: I discussed with transfer center esperanza Simeon emergent transfer. 06: Thru transfer center, [facility] Dr. Thomson co accepted transfer, requested images sent to him for emergent review, I sent images. Differential Diagnosis Differential Diagnosis Aortic dissection, Contus ion, Urinary obstruction, Urinary tract infection, Urolithiasis Patient Discharge Departure Vital Signs/Condition Condition Critical Clinical Impression Clinical Impression Primary Impression: THORACIC AND ABDOMINAL AORTI C DISSECTION Secondary Impressions: HYPERTENSIVE EMERGENCY Disposition Decision Transfer )( Request Time 06 )( Request Date 02/09/20 Call Returned Time 07 Spoke with: Attending physician Receiving [facility] Transfer Accepted Yes Accepted by: DR. RMAIREZ )( Acceptance Time 702 )( Acceptance Date 02/09/20 Transfer Reason Higher level of care Patient Status Stable w/in capabilities Discharge/Care Plan Counseled Regarding Diagnosi s, Lab results, Imaging studies, Need for admission, Need for transfer Critical Care Time Spent (minutes): 50 Services Performed Patient management by Irving valerio spent at bedside, Reviewing test results, Reviewing imaging, Discussing rosalia ent care, Documentation in record, Time with fam/surrogate, pt requested I speak to his , I spoke to on phone and informed her of critical condi tion and plan for transfer. Separately billable procedures excluded from irving e. CC Note 1 Total critical care time [50 ] minutes. Total critical care time documented does not include time spent on separately billed proc edures or the services of residents, students, nurses or physician assista nts. I personally saw and examined the patient. I have reviewed all diagno stic interpretations and treatment plans as written. I was present for the omalley portions of any procedures performed and the inclusive time noted in any critical care statement. Critical care time includes patient m anagement by me, time spent at the patients bedside, time to review lab and imaging results, discussing patient care, documentation in the medical record, and time spent with the f amily or caregiver. Supervising Physician Note Resident Saw Pt This patient was seen by a resident. I have pers onally seen the patient, performed the critical or omalley portions o f the service, and participated in the management of the patient. I have review ed and agree with the resident's note, and I have reviewed all labs , ECGs, and imaging studies or reports. I agree with this resident's findings, exam and plan. Electronically Signed by Jan Campoverde MD on at 0715 RPT #:[id number] END OF REPORT 2020-02-09 03:22:00-00:00 [facility] ([facility]) EMERGENCY PROVIDER REPORT REPORT#:[id number] REPORT STATUS: Signed DATE:02/09/20 TIME: 321 PATIENT: JORGE GOINS UNIT #: [id number] ROOM/BED: AGE: 34 SEX: M PCP PHYS: No Primary or Family Ph ysician SERVICE AUTHOR: Lulu Rhodes MD * ALL edits or amendments must be made on the el [employer]/computer document * Lulu Rhodes 02/09/20 0322: Past Medical History - Adult Stated Complaint LOWER BACK PAIN, LEG PAIN Allergies Coded Allergies: Iodine and Iodide Containing Produc (Severe, HIV ES 11/19/19) shellfish derived (Intermediate, RASH 11/19/19) Home Medications Active Scripts ASPIRIN EC (ECOTRIN) 81 MG PO DAILY 30 Days #30 TABS Prov: 05/10/19 CARVEDILOL (COREG) 25 MG PO BID MEALS 30 Days #60 TAB Prov: 05/10/19 ACETAMINOPHEN/CODEINE (TYLENOL WITH CODE INE #4 300/60 MG) 1 TAB PO Q6H PRN PRN PAIN 7 Days #20 TAB Prov: 05/10/19 ATORVASTATIN (LIPITOR) 20 MG PO BEDTIME 30 Days #30 TABS Prov: 11/23/19 LOSARTAN (COZAAR) 100 MG PO DAILY LOSARTAN (COZAAR) 100 MG PO DAILY #30 TAB Prov: 11/23/19 NIFEdipine CC (ADALAT CC) 90 MG PO Q12HR NIFEdipine CC (ADALAT CC) 90 MG PO Q12HR #60 TA B Prov: 11/23/19 HYDROCHLOROTHIAZIDE (HYDRODIURIL) 25 MG PO DAILY HYDROCHLOROTHIAZIDE (HYDRODIURIL) 25 MG PO THOMAS Y #30 TAB Prov: 11/23/19 Reported Medications ALBUTEROL (PROAIR HFA 90 MCG/ACT 8.5 GM) 2 PUFF INH RTQ6H PRN PRN SOB Physical Exam Vital Signs Review of Vital Signs Reviewed Focused PE General/Const General/Const Alert, appears uncomfrtable MS Back Back Inspection NL, LCVAT Neurologic Neurologic Speech NL Free Text PE Notes Free Text PE Notes Gen: A O x3, +appears very unocomfrtable Skin: Appropriate color, well-perfused, warm, dr y, no wounds or lumps HEENT: NCAT, EOM intact, TM normal bilaterally, mucous membranes moist CV: Regular rate and rhythm, normal S1, S2, no m urmurs, clicks, rubs, gallops Pulm: Spontaneous respiratio ns, no respiratory distress, no wheezing, no rales, no rhonchi Abd: +LVCAT, Nondistended, soft, nontender, no g uarding or rebound, no CVA tenderness : Deferred MSK: - RUE: FROM, no deformities, no swelling, no adalberto thema, nontender, sensation intact, 2+ radial pulse - LUE: FROM, no deformities, no swelling, no adalberto thema, nontender, sensation intact, 2+ radial pulse - RLE: FROM, no deformities, no swelling, no adalberto thema, nontender, sensation intact, 2+ DP - LLE: FROM, no deformities, no swelling, no adalberto thema, nontender, sensation intact, 2+ DP Neuro: - GCS 15: E-4, V-5, M-6 - Alert and oriented x3, no nystagmus, cranial nerves II through XII intact, 5/5 sensation throughout, 5/5 strength throughout, n ormal [id number] Re-Evaluation MDM Free Text MDM Notes Additional Text 0600 - radiology called - CTAP non con showing R P hemorrgage, pericardial effusion, taking for stat CTA chest, abd, pelvis - labetalol 20mg IV push, nicardipine gtt ordered After rerutning from CT - to ld nursing that actually had had intercourse around 1a, felt pop in left groin, numbness, went to sl eep. Woke up, turned to left, felt sharp chest pain, left upper chest with rad iation down left abd. Patient Discharge Departure Discharge/Care Plan Referrals No Primary or Family Physician (PCP/Family) Amelia Limon 02/09/20 0336: HPI-Back Pain Under 40 Presentation Chief Complaint Pain, flank L Hx Obtained From Patient Onset Occurred Today Symptom Duration Since onset Progression since Onset Unchanged Caused by No trauma by history Location Flank L Quality Same as prior Radiation No: Does not radiate. Severity: Onset Pain level 10 out of 10 Severity: Current Pain level 10 out of 10 Associated with Reports: Tingling, lower ext R. Denies: Nausea, Vomiting. Associated Other Pt denies other symptoms Free Text HPI Notes Free Text HPI Notes 34 yo M with PMH of HTN and asthma prese nts to the ER with the sudden onset of left flank pain. Pt states that it started this morning out of a sudden, the pain radiates to the left shoulder and left legs . Pain is 10/10. No previous episode before. No n/v/d. Review of Systems Focused Review of Systems Constitutional Denies: Chills, Fatigue, Fever. Respiratory Denies: Cough, non-productive, Cough, productive . Cardiovascular Denies: Chest pain, Dyspnea on exertion. GI Reports: Abdominal pain. Denies: Hematemesis, He matochezia, Nausea, Vomiting. Male Reports: Flank pain. Denies: Dysuria. Musculoskeletal Denies: Back pain, Joint pain. Neurologic Denies: Headache, Syncope. Physical Exam Vital Signs Vital Signs First Documented: Result Date Time Pulse Ox 97 02/08 319 B/P 202/128 02/08 319 B/P Mean 152 02/08 319 O2 Delivery Room air 02/08 319 Temp 37.0 02/08 319 Pulse 80 02/08 319 Resp 16 02/08 319 O2 Flow Rate 2.650720 02/08 646 Last Documented: Result Date Time Pulse Ox 96 02/08 654 B/P 188/113 02/08 654 B/P Mean 138 02/08 654 O2 Delivery Nasal cannula 02/08 654 O2 Flow Rate 3.391881 02/08 654 Pulse 67 02/08 654 Resp 16 02/08 654 Temp 37.0 02/08 319 Review of Vital Signs Reviewed, Vital signs norm al Focused PE General/Const General/Const Awake, Alert, Well appearing, Wel l developed, Cooperative, Not toxic appearing MS Neck Neck pain on the neck Resp/Chest Respiratory/Chest Atraumatic, Breath sounds NL, Breath sounds = bilat, No respiratory distress, No wheezing Cardiovascular Cardiovascular Heart rate NL, Regular rhythm, H eart sounds NL Abdomen/GI Abdomen/GI Atraumatic, Soft, Non-tender, No gua rding, No rebound, No hernia, No palpable mass, No pulsatile mass MS Back Back Atraumatic, Inspection NL, Non-tender Neurologic Neurologic Oriented X3, Speech NL Interpretation Diagnostics Lab Results Interpretation Results Laboratory Tests 02/09/2021: [Embedded Image Not Available] Laboratory Tests: 02/08 02/08 02/08 0632 0621 0545 Chemistry Sodium (137 - 145 mmol/L) 136 L Potassium (3.4 - 5.0 mmol/L) 3.1 L Chloride (98 - 107 mmol/L) 103 Carbon Dioxide (22 - 30 mmol/L) 25 BUN (9 - 20 mg/dL) 26 H Creatinine (0.7 - 1.3 mg/dL) 2.0 H Glomerular Filtr Rate (>60) 50 L Glucose (74 - 106 mg/dL) 105 Calcium (8.4 - 10.2 mg/dL) 8.0 L Rapid Troponin I (0.00 - 0.079 ng/mL) 0.03 Coagulation INR 1.5 PTT ([place]) (23.4 - 37.0 SECONDS) 32.4 PT Patient/Control Mix (9.2 - 12.1 SECONDS) 16. 3 H Hematology WBC (5.0 - 12.0 x10 3/uL) 8.1 RBC (4.70 - 6.10 x10 6/uL) 4.61 L Hgb (14.0 - 18.0 g/dL) 13.2 L Hct (37.0 - 49.0 %) 42.0 MCV (80 - 94 fL) 91 MCH (27 - 31 pg) 28.6 MCHC (33 - 37 g/dL) 31.4 L RDW (11.5 - 15.5 %) 15.5 Plt Count (130 - 400 x10 3/uL) 233 MPV (9.4 - 16.4 fL) 10.0 Neut % (Auto) (43 - 65 %) 88.5 H Lymph % (Auto) (20.5 - 45.5 %) 6.0 L Citrus % (Auto) (5.5 - 11.7 %) 4.9 L Eos % (Auto) (0.9 - 2.9 %) 0.1 L Baso % (Auto) (0.2 - 1.0 %) 0.1 L Neut # (Auto) (2.2 - 4.8 x10 3/uL) 7.16 H Lymph # (Auto) (1.3 - 2.9 x10 3/uL) 0.49 L Citrus # (Auto) (0.3 - 0.8 x10 3/uL) 0.40 Eos # (Auto) (0.0 - 0.2 x10 3/uL) 0.01 Baso # (Auto) (0.0 - 0.1 x10 3/uL) 0.01 Immature Gran % (0.0 - 2.0 %) 0.4 Nucleated RBC % (0 - 1.0 %) 0.0 Urines Urine Color (Yellow) Yellow Urine Appearance (Clear) Clear Urine pH (5.0 - 8.0) 5.0 Ur Specific [place] (<1.030) 1.027 Urine Protein (Negative mg/dL) NEGATIVE Urine Glucose (UA) (Negative) Negative Urine Ketones (Negative mg/dL) Trace H Urine Blood (Negative) Negative Urine Nitrite (Negative) Negative Urine Bilirubin (Negative) Negative Urine Urobilinogen (Negative mg/dL) Negative Ur Leukocyte Esterase (Negative) NEGATIVE Urine RBC (<4 - 5 /HPF) 0-3 Urine WBC (<4 - 5 /HPF) 0-3 Ur Squamous Epith Cells (0 - 5 (RARE) /HPF) 0-5 (RARE) Recent Impressions: CAT SCAN - CT ABD PELVIS W/O CONT 02/08 523 Report Impression - Status: SIGNED Entered: 02/09/202046 Impression: Hyperdense fluid seen tracking along the left re troperitoneum measuring at least 4.9 x 8.6 x 11 cm concerning for spontaneous retroperitoneal hemorrhage Additional findings as detailed above Impression By: [email or web address] - Cuca Tran MD CAT SCAN - CTA ABD PEL W CONT 02/08 603 Report Impression - Status: SIGNED Entered: 02/09/2020642 IMPRESSION: Similar appearance of a left retroperitoneal hem atoma without hyperdense blush to indicate active extravasatio n. 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 Significant hypodensit y within the left renal and right external iliac arteries are conc erning for thrombus. Subtle superior left renal pole hypoattenuation and mild asymmetric left perinephric stranding, this could reflect a renal infarct. Scattered pulmonary groundglass opacities with b ibasilar infiltrates, nonspecific although may be seen with pulmonary edema and bibasilar atelectasis/pneumonitis. Small pericardial effusion. Cardiomegaly. Somewhat mottled appearance the bones, nonspecif ic, although may be seen with renal osteodystrophy, correlate clinic ally. FOR INTERNAL CODING PURPOSES ONLY RESULT CODE: CVRMD These findings were discussed with Dr. Campoverde via telephone at 02/09/2020 6:40 AM. Impression By: [email or web address] - Olinda Chilel MD CAT SCAN - CT ANGIO CHEST 02/08 603 Report Impression - Status: SIGNED Entered: 02/09/2020642 IMPRESSION: Similar appearance of a left retroperitoneal hem atoma without hyperdense blush to indicate active extravasatio n. 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 Significant hypodensit y within the left renal and right external iliac arteries are conc erning for thrombus. Subtle superior left renal pole hypoattenuation and mild asymmetric left perinephric stranding, this could reflect a renal infarct. Scattered pulmonary groundglass opacities with b ibasilar infiltrates, nonspecific although may be seen with pulmonary edema and bibasilar atelectasis/pneumonitis. Small pericardial effusion. Cardiomegaly. Somewhat mottled appearance the bones, nonspecif ic, although may be seen with renal osteodystrophy, correlate clinic ally. FOR INTERNAL CODING PURPOSES ONLY RESULT CODE: CVRMD These findings were discussed with Dr. Campoverde via telephone at 02/09/2020 6:40 AM. Impression By: [email or web address] Olinda Menendez MD Re-Evaluation MDM ED Course Medication(s) Ordered Medication(s) Ordered: Cardiovascular Drugs Sig/Ronan Start time Last Medication Dose Route Stop Time Status Admin Esmolol HCl 250 ML .Q24H ONE 02/08 0630 CKD IV 02/09 0629 0628 Nicardipine HCl 250 ML .Q24H ONE 02/08 0600 AC 02/08 IV 02/09 0559 0602 Labetalol HCl 20 MG X1ED STA 02/08 0554 DC 01/24 6 IV 02/08 0555 0602 Central Nervous System Agents Sig/Ronan Start time Last Medication Dose Route Stop Time Status Admin Morphine Sulfate 4 MG X1ED STA 02/08 0702 DC IV 02/08 0703 Ketorolac 15 MG X1ED STA 02/08 0455 DC 02/08 Tromethamine IV 02/08 0456 0459 Morphine Sulfate 4 MG X1ED STA 02/08 0455 DC IV 02/08 0456 0459 Fentanyl Citrate 50 MCG X1ED STA 02/08 0333 DC 02/08 IV 02/08 0334 0340 Acetaminophen/ 1 TAB X1ED STA 02/08 0323 DC Codeine Phosphate PO 02/08 0324 0330 Diazepam 5 MG X1ED STA 02/08 0322 DC 08/ PO 02/08 0323 0329 Ibuprofen 800 MG X1ED STA 02/08 0322 DC 08 PO 02/08 0323 0330 Diagnostic Agents Sig/Ronan Start time Last Medication Dose Route Stop Time Status Admin Iopamidol 100 ML .STK-MED ONE 02/08 0627 DC IV 02/08 0628 0627 Electrolytic, Caloric, And Camila Sig/Ronan Start time Last Medication Dose Route Stop Time Status Admin Sodium Chloride 1,000 ML X1ED STA 02/08 0555 DC / IV 02/08 0556 0603 Sodium Chloride 1,000 ML X1ED STA 02/08 0408 DC 02/08 IV 02/08 0409 0432 Gastrointestinal Drugs Sig/Ronan Start time Last Medication Dose Route Stop Time Status Admin Ondansetron HCl 4 MG X1ED STA 02/08 0554 DC IV 02/08 0555 0602 Patient Discharge Departure Vital Signs/Condition Vital Signs First Documented: Result Date Time Pulse Ox 97 02/08 0319 B/P 202/128 02/08 0319 B/P Mean 152 02/08 0319 O2 Delivery Room air 02/08 0319 Temp 37.0 02/08 0319 Pulse 80 02/08 0319 Resp 16 02/08 0319 O2 Flow Rate 2.486408 02/08 0646 Last Documented: Result Date Time Pulse Ox 96 02/08 0654 B/P 188/113 02/08 0654 B/P Mean 138 02/08 0654 O2 Delivery Nasal cannula 02/08 0654 O2 Flow Rate 3.155488 02/08 0654 Pulse 67 02/08 0654 Resp 16 02/08 0654 Temp 37.0 02/08 0319 All vital signs available at the time of this en try have been reviewed. Anna Campoverde 02/09/20 0612: HPI-Back Pain Under 40 General Initial Greet Date/Time 02/09/20322 Presentation )( Sudden in Onset? Yes Free Text HPI Notes Free Text HPI Notes PT REPORTS HE WAS HAVING SEXUAL ACTIVITY AT 1 AM , WHEN HE FELT SUDDEN PAIN TO HIS LEFT CHEST AND LEFT ABDOMEN. CURRENTLY MORE COMFORTABLE, HAS 4/10 PAIN TO LEF T ABDOMEN STILL. PT REPORTS HE HAS BEEN COMPLIANT WITH HIS HTN ME DICATIONS. Review of Systems ROS Statements All systems rev neg except as marked. Focused Review of Systems Cardiovascular Reports: Chest pain. GI Reports: Abdominal pain. Past Medical History - Adult Additional Medical History HTN, CHF Additional Surgical History CCY Smoking status for patients 13 years old or olde r: Never Smoker Physical Exam Vital Signs Review of Vital Signs Reviewed Focused PE General/Const General/Const Awake, Alert, Well appearing MS Neck Neck Atraumatic, Supple, No meningismus, Full r patrick of motion, No swelling, Non-tender, No midline vertebral tend, No masses , No crepitus Resp/Chest Respiratory/Chest Breath sounds NL, Breath soun ds = bilat, No respiratory distress, No rales, No rhonchi, No wheezing Cardiovascular Cardiovascular Heart rate NL, Regular rhythm, H eart sounds NL, Peripheral circulation NL Abdomen/GI Abdomen/GI Soft, Non-tender, No guarding, No re bound MS Back Back Atraumatic, Inspection NL, Full range of m otion, Painless range of motion, Non-tender, No midline vertebral tend, N o paraspinal tenderness, No muscle spasm, Straight leg raise neg, No CVA ten derness MS Lower Extrem Lower Ext/Pelvis/MS Inspection NL, No swelling, Non-tender, No erythema, No deformity, Neurologic intact, Vascular intact, N o edema Neurologic Neurologic Oriented X3, Speech NL, No motor def icits, No sensory deficits, Reflexes equal bilat Additional PE MS Head Head Atraumatic, Normocephalic Eyes Eyes Atraumatic, PERRL, EOMI Ears/Nose/Throat Ears/Nose/Throat Atraumatic, Airway patent, Muc ous membranes moist MS Upper Extrem Upper Extremity/MS Atraumatic, Inspection NL, F ull range of motion Skin Skin Atraumatic, Color NL, No rash, Warm Psychiatric Psychiatric Affect NL, Mood NL Interpretation Diagnostics ECG #1 Interpretation Text/Dict Note NSR 73, NL AXIS, LONG QTC 566, T INVERSIONS INF LAT LEADS, ISCHEMIC CHANGES. Date 02/09/20 Time 0626 Re-Evaluation MDM Free Text MDM Notes Free Text MDM Notes 0615: I D/W DR. JUAREZ [employer] SUPERVISOR , [facility] NOT YET EQUIPPED FOR DISSECTION [place], RECOMMEND TRANSFER. 06: I discussed with transfer center esperanza Simeon emergent transfer. 0621: Thru transfer center, [facility] Dr. Thomson co accepted transfer, requested images sent to him for emergent review, I sent images. Differential Diagnosis Differential Diagnosis Aortic dissection, Contus ion, Urinary obstruction, Urinary tract infection, Urolithiasis Patient Discharge Departure Vital Signs/Condition Condition Critical Clinical Impression Clinical Impression Primary Impression: THORACIC AND ABDOMINAL AORTI C DISSECTION Secondary Impressions: HYPERTENSIVE EMERGENCY Disposition Decision Transfer )( Request Time 620 )( Request Date 02/09/20 Call Returned Time 07 Spoke with: Attending physician Receiving [facility] Transfer Accepted Yes Accepted by: DR. RAMIREZ )( Acceptance Time 702 )( Acceptance Date 02/09/20 Transfer Reason Higher level of care Patient Status Stable w/in capabilities Discharge/Care Plan Counseled Regarding Diagnosi s, Lab results, Imaging studies, Need for admission, Need for transfer Critical Care Time Spent (minutes): 50 Services Performed Patient management by me, Irving brown spent at bedside, Reviewing test results, Reviewing imaging, Discussing rosalia ent care, Documentation in record, Time with fam/surrogate, pt requested I speak to his , I spoke to on phone and informed her of critical condi tion and plan for transfer. Separately billable procedures excluded from irving e. CC Note 1 Total critical care time [50 ] minutes. Total critical care time documented does not include time spent on separately billed proc edures or the services of residents, students, nurses or physician assista nts. I personally saw and examined the patient. I have reviewed all diagno stic interpretations and treatment plans as written. I was present for the omalley portions of any procedures performed and the inclusive time noted in any critical care statement. Critical care time includes patient m anagement by me, time spent at the patients bedside, time to review lab and imaging results, discussing patient care, documentation in the medical record, and time spent with the f amily or caregiver. Supervising Physician Note Resident Saw Pt This patient was seen by a resident. I have pers onally seen the patient, performed the critical or omalley portions o f the service, and participated in the management of the patient. I have review ed and agree with the resident's note, and I have reviewed all labs , ECGs, and imaging studies or reports. I agree with this resident's findings, exam and plan. Electronically Signed by Jan Campoverde MD on at 0715 Electronically Signed by Amelia Limon MD R1 on 0 02/09/20 at 1242 RPT #:[id number] END OF REPORT 2020-02-09 03:22:00-00:[address] [facility] ([facility]) EMERGENCY PROVIDER REPORT REPORT#:[id number] REPORT STATUS: Signed DATE:02/09/20 TIME: 321 PATIENT: JORGE GOINS UNIT #: [id number] ROOM/BED: AGE: 34 SEX: M PCP PHYS: No Primary or Family Ph ysician SERVICE AUTHOR: Lulu Rhodes MD * ALL edits or amendments must be made on the rimidi/computer document * Lulu Rhodes 02/09/20321: HPI-Back Pain Under 40 General Initial Greet Date/Time 02/09/20322 Review of Systems Free Text ROS Notes Free Text ROS Notes REVIEW OF SYSTEMS Constitutional: Afebrile, no malaise, no general weakness, appears uncomfrotable Skin: No rashes, bruises, lumps HEENT: No headache, no visua l changes, no ear pain, no tinnitus, no rhinorrhea, no sore throat Endocrine: No Polyuria, No Polydipsia Cardiovascular: No chest pain, shortness of shukri th, palpitations, lightheadedness, no leg swelling Respiratory: No cough, no dyspnea Gastrointestinal: Nondistended, no abdominal easton n, no Nausea, No Vomiting, No Diarrhea Genitourinary: No hesitancy, no urgency, no dysu liliane, no hematuria Musculoskeletal: No joint pain, no weakness, +le ft lumbar paraspinal ttp Neuro: No confusion, no weakness, no paresthesia s, no seizures Past Medical History - Adult Stated Complaint LOWER BACK PAIN, LEG PAIN Allergies Coded Allergies: Iodine and Iodide Containing Produc (Severe, HIV ES 11/19/19) shellfish derived (Intermediate, RASH 11/19/19) Home Medications Active Scripts ASPIRIN EC (ECOTRIN) 81 MG PO DAILY 30 Days #30 TABS Prov: 05/10/19 CARVEDILOL (COREG) 25 MG PO BID MEALS 30 Days #60 TAB Prov: 05/10/19 ACETAMINOPHEN/CODEINE (TYLENOL WITH CODE INE #4 300/60 MG) 1 TAB PO Q6H PRN PRN PAIN 7 Days #20 TAB Prov: 05/10/19 ATORVASTATIN (LIPITOR) 20 MG PO BEDTIME 30 Days #30 TABS Prov: 11/23/19 LOSARTAN (COZAAR) 100 MG PO DAILY LOSARTAN (COZAAR) 100 MG PO DAILY #30 TAB Prov: 11/23/19 NIFEdipine CC (ADALAT CC) 90 MG PO Q12HR NIFEdipine CC (ADALAT CC) 90 MG PO Q12HR #60 TA B Prov: 11/23/19 HYDROCHLOROTHIAZIDE (HYDRODIURIL) 25 MG PO DAILY HYDROCHLOROTHIAZIDE (HYDRODIURIL) 25 MG PO THOMAS Y #30 TAB Prov: 11/23/19 Reported Medications ALBUTEROL (PROAIR HFA 90 MCG/ACT 8.5 GM) 2 PUFF INH RTQ6H PRN PRN SOB Physical Exam Vital Signs Review of Vital Signs Reviewed Focused PE General/Const General/Const Alert, appears uncomfrtable MS Back Back Inspection NL, LCVAT Neurologic Neurologic Speech NL Free Text PE Notes Free Text PE Notes Gen: A O x3, +appears very unocomfrtable Skin: Appropriate color, well-perfused, warm, dr y, no wounds or lumps HEENT: NCAT, EOM intact, TM normal bilaterally, mucous membranes moist CV: Regular rate and rhythm, normal S1, S2, no m urmurs, clicks, rubs, gallops Pulm: Spontaneous respiratio ns, no respiratory distress, no wheezing, no rales, no rhonchi Abd: +LVCAT, Nondistended, soft, nontender, no g uarding or rebound, no CVA tenderness : Deferred MSK: - RUE: FROM, no deformities, no swelling, no adalberto thema, nontender, sensation intact, 2+ radial pulse - LUE: FROM, no deformities, no swelling, no adalberto thema, nontender, sensation intact, 2+ radial pulse - RLE: FROM, no deformities, no swelling, no adalberto thema, nontender, sensation intact, 2+ DP - LLE: FROM, no deformities, no swelling, no adalberto thema, nontender, sensation intact, 2+ DP Neuro: - GCS 15: E-4, V-5, M-6 - Alert and oriented x3, no nystagmus, cranial nerves II through XII intact, 5/5 sensation throughout, 5/5 strength throughout, n ormal pmhcin-of-yfxy Re-Evaluation MDM Free Text MDM Notes Additional Text 0600 - radiology called - CTAP non con showing R P hemorrgage, pericardial effusion, taking for stat CTA chest, abd, pelvis - labetalol 20mg IV push, nicardipine gtt ordered After rerutning from CT - to ld nursing that actually had had intercourse around 1a, felt pop in left groin, numbness, went to eep. Woke up, turned to left, felt sharp chest pain, left upper chest with rad iation down left abd. Patient Discharge Departure Discharge/Care Plan Referrals No Primary or Family Physician (PCP/Family) Critical Care CC Note 1 Total critical care time [30 ] minutes. Total critical care time documented does not include time spent on separately billed proc edures or the services of residents, students, nurses or physician assista nts. I personally saw and examined the patient. I have reviewed all diagno stic interpretations and treatment plans as written. I was present for the omalley portions of any procedures performed and the inclusive time noted in any critical care statement. Critical care time includes patient m anagement by me, time spent at the patients bedside, time to review lab and imaging results, discussing patient care, documentation in the medical record, and time spent with the f amily or caregiver. Supervising Physician Note MidLv/Doc Saw Pt 2 I have personally interviewed and examined the p atient. All charts, labs, and imaging studies were reviewed. Amelia Limon 02/09/20 0336: HPI-Back Pain Under 40 Presentation Chief Complaint Pain, flank L Hx Obtained From Patient Onset Occurred Today Symptom Duration Since onset Progression since Onset Unchanged Caused by No trauma by history Location Flank L Quality Same as prior Radiation No: Does not radiate. Severity: Onset Pain level 10 out of 10 Severity: Current Pain level 10 out of 10 Associated with Reports: Tingling, lower ext R. Denies: Nausea, Vomiting. Associated Other Pt denies other symptoms Free Text HPI Notes Free Text HPI Notes 34 yo M with PMH of HTN and asthma prese nts to the ER with the sudden onset of left flank pain. Pt states that it started this morning out of a sudden, the pain radiates to the left shoulder and left legs . Pain is 10/10. No previous episode before. No n/v/d. Review of Systems Focused Review of Systems Constitutional Denies: Chills, Fatigue, Fever. Respiratory Denies: Cough, non-productive, Cough, productive . Cardiovascular Denies: Chest pain, Dyspnea on exertion. GI Reports: Abdominal pain. Denies: Hematemesis, He matochezia, Nausea, Vomiting. Male Reports: Flank pain. Denies: Dysuria. Musculoskeletal Denies: Back pain, Joint pain. Neurologic Denies: Headache, Syncope. Physical Exam Vital Signs Vital Signs First Documented: Result Date Time Pulse Ox 97 02/08 031 B/P 202/128 02/08 031 B/P Mean 152 02/08 031 O2 Delivery Room air 02/08 319 Temp 37.0 02/08 319 Pulse 80 02/08 031 Resp 16 02/08 0319 O2 Flow Rate 2.866227 02/08 0646 Last Documented: Result Date Time Pulse Ox 96 02/08 0757 B/P 112/58 02/08 0757 B/P Mean 76 02/08 0757 Pulse 72 02/08 0757 Resp 15 02/08 0757 O2 Delivery Nasal cannula 02/08 07 O2 Flow Rate 3.161567 02/08 07 Temp 37.0 02/08 031 Review of Vital Signs Reviewed, Vital signs norm al Focused PE General/Const General/Const Awake, Alert, Well appearing, Wel l developed, Cooperative, Not toxic appearing MS Neck Neck pain on the neck Resp/Chest Respiratory/Chest Atraumatic, Breath sounds NL, Breath sounds = bilat, No respiratory distress, No wheezing Cardiovascular Cardiovascular Heart rate NL, Regular rhythm, H eart sounds NL Abdomen/GI Abdomen/GI Atraumatic, Soft, Non-tender, No gua rding, No rebound, No hernia, No palpable mass, No pulsatile mass MS Back Back Atraumatic, Inspection NL, Non-tender Neurologic Neurologic Oriented X3, Speech NL Interpretation Diagnostics Lab Results Interpretation Results Laboratory Tests 02/09/20 0621: [Embedded Image Not Available] Laboratory Tests: 02/08 02/08 02/08 02/08 0632 0627 0621 0618 Chemistry Sodium (137 - 145 mmol/L) 136 L Potassium (3.4 - 5.0 mmol/L) 3.1 L Chloride (98 - 107 mmol/L) 103 Carbon Dioxide (22 - 30 mmol/L) 25 BUN (9 - 20 mg/dL) 26 H Creatinine (0.7 - 1.3 mg/dL) 2.0 H Glomerular Filtr Rate (>60) 50 L Glucose (74 - 106 mg/dL) 105 Calcium (8.4 - 10.2 mg/dL) 8.0 L Rapid Troponin I (0.00 - 0.079 ng/mL) 0.03 NT-Pro-B Natriuret Pep (0 - 299 pg/mL) 3460 H Coagulation INR 1.5 PTT (N[place]) (23.4 - 37.0 SECONDS) 32.4 PT Patient/Control Mix (9.2 - 12.1 SECONDS) 16. 3 H Hematology WBC (5.0 - 12.0 x10 3/uL) 8.1 RBC (4.70 - 6.10 x10 6/uL) 4.61 L Hgb (14.0 - 18.0 g/dL) 13.2 L Hct (37.0 - 49.0 %) 42.0 MCV (80 - 94 fL) 91 MCH (27 - 31 pg) 28.6 MCHC (33 - 37 g/dL) 31.4 L RDW (11.5 - 15.5 %) 15.5 Plt Count (130 - 400 x10 3/uL) 233 MPV (9.4 - 16.4 fL) 10.0 Neut % (Auto) (43 - 65 %) 88.5 H Lymph % (Auto) (20.5 - 45.5 %) 6.0 L Citrus % (Auto) (5.5 - 11.7 %) 4.9 L Eos % (Auto) (0.9 - 2.9 %) 0.1 L Baso % (Auto) (0.2 - 1.0 %) 0.1 L Neut # (Auto) (2.2 - 4.8 x10 3/uL) 7.16 H Lymph # (Auto) (1.3 - 2.9 x10 3/uL) 0.49 L Citrus # (Auto) (0.3 - 0.8 x10 3/uL) 0.40 Eos # (Auto) (0.0 - 0.2 x10 3/uL) 0.01 Baso # (Auto) (0.0 - 0.1 x10 3/uL) 0.01 Immature Gran % (0.0 - 2.0 %) 0.4 Nucleated RBC % (0 - 1.0 %) 0.0 Serology Nasal/Oral COVID-19 PCR (NEGATIVE) Negative 02/08 0545 Urines Urine Color (Yellow) Yellow Urine Appearance (Clear) Clear Urine pH (5.0 - 8.0) 5.0 Ur Specific Commerce (<1.030) 1.027 Urine Protein (Negative mg/dL) NEGATIVE Urine Glucose (UA) (Negative) Negative Urine Ketones (Negative mg/dL) Trace H Urine Blood (Negative) Negative Urine Nitrite (Negative) Negative Urine Bilirubin (Negative) Negative Urine Urobilinogen (Negative mg/dL) Negative Ur Leukocyte Esterase (Negative) NEGATIVE Urine RBC (<4 - 5 /HPF) 0-3 Urine WBC (<4 - 5 /HPF) 0-3 Ur Squamous Epith Cells (0 - 5 (RARE) /HPF) 0-5 (RARE) Recent Impressions: CAT SCAN - CT ABD PELVIS W/O CONT 02/08 0523 Report Impression - Status: SIGNED Entered: 02/09/2020 0546 Impression: Hyperdense fluid seen tracking along the left re troperitoneum measuring at least 4.9 x 8.6 x 11 cm concerning for spontaneous retroperitoneal hemorrhage Additional findings as detailed above Impression By: [email or web address] - Cuca Tran MD CAT SCAN - CTA ABD PEL W CONT 02/08 0603 Report Impression - Status: SIGNED Entered: 02/09/2020 0643 IMPRESSION: Similar appearance of a left retroperitoneal hem atoma without hyperdense blush to indicate active extravasatio n. 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 Significant hypodensit y within the left renal and right external iliac arteries are conc erning for thrombus. Subtle superior left renal pole hypoattenuation and mild asymmetric left perinephric stranding, this could reflect a renal infarct. Scattered pulmonary groundglass opacities with b ibasilar infiltrates, nonspecific although may be seen with pulmonary edema and bibasilar atelectasis/pneumonitis. Small pericardial effusion. Cardiomegaly. Somewhat mottled appearance the bones, nonspecif ic, although may be seen with renal osteodystrophy, correlate clinic ally. FOR INTERNAL CODING PURPOSES ONLY RESULT CODE: CVRMD These findings were discussed with Dr. Campoverde via telephone at 02/09/2020 6:40 AM. Impression By: Olinda Viramontes MD CAT SCAN - CT ANGIO CHEST 02/08 0603 Report Impression - Status: SIGNED Entered: 02/09/2020 0643 IMPRESSION: Similar appearance of a left retroperitoneal hem atoma without hyperdense blush to indicate active extravasatio n. 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 Significant hypodensit y within the left renal and right external iliac arteries are conc erning for thrombus. Subtle superior left renal pole hypoattenuation and mild asymmetric left perinephric stranding, this could reflect a renal infarct. Scattered pulmonary groundglass opacities with b ibasilar infiltrates, nonspecific although may be seen with pulmonary edema and bibasilar atelectasis/pneumonitis. Small pericardial effusion. Cardiomegaly. Somewhat mottled appearance the bones, nonspecif ic, although may be seen with renal osteodystrophy, correlate clinic ally. FOR INTERNAL CODING PURPOSES ONLY RESULT CODE: CVRMD These findings were discussed with Dr. Campoverde via telephone at 02/09/2020 6:40 AM. Impression By: Olinda Viramontes MD Re-Evaluation MDM ED Course Medication(s) Ordered Medication(s) Ordered: Cardiovascular Drugs Sig/Ronan Start time Last Medication Dose Route Stop Time Status Admin Esmolol HCl 250 ML .Q24H ONE 02/08 0630 CKD IV 02/09 0629 0628 Nicardipine HCl 250 ML .Q24H ONE 02/08 0600 AC 02/08 IV 02/09 0559 0602 Labetalol HCl 20 MG X1ED STA 02/08 0554 DC 08/ 6 IV 02/08 0555 0602 Central Nervous System Agents Sig/Ronan Start time Last Medication Dose Route Stop Time Status Admin Morphine Sulfate 4 MG X1ED STA 02/08 0702 DC IV 02/08 0703 Ketorolac 15 MG X1ED STA 02/08 0455 DC 02/08 Tromethamine IV 02/08 0456 0459 Morphine Sulfate 4 MG X1ED STA 02/08 0455 DC 08 IV 02/08 0456 0459 Fentanyl Citrate 50 MCG X1ED STA 02/08 0333 DC 08 IV 02/08 0334 0340 Acetaminophen/ 1 TAB X1ED STA 02/08 0323 DC Codeine Phosphate PO 02/08 0324 0330 Diazepam 5 MG X1ED STA 02/08 0322 DC 02/08 PO 02/08 0323 0329 Ibuprofen 800 MG X1ED STA 02/08 0322 DC 02/08 PO 02/08 0323 0330 Diagnostic Agents Sig/Ronan Start time Last Medication Dose Route Stop Time Status Admin Iopamidol 100 ML .STK-MED ONE 02/08 0627 DC IV 02/08 0628 0627 Electrolytic, Caloric, And Camila Sig/Ronan Start time Last Medication Dose Route Stop Time Status Admin Sodium Chloride 1,000 ML X1ED STA 02/08 0555 DC 02/08 IV 02/08 0556 0603 Sodium Chloride 1,000 ML X1ED STA 02/08 0408 DC 02/08 IV 02/08 0409 0432 Gastrointestinal Drugs Sig/Ronan Start time Last Medication Dose Route Stop Time Status Admin Ondansetron HCl 4 MG X1ED STA 02/08 0554 DC IV 02/08 0555 0602 Patient Discharge Departure Vital Signs/Condition Vital Signs First Documented: Result Date Time Pulse Ox 97 02/08 0319 B/P 202/128 02/08 0319 B/P Mean 152 02/08 0319 O2 Delivery Room air 02/08 031 Temp 37.0 02/08 031 Pulse 80 02/08 0319 Resp 16 02/08 0319 O2 Flow Rate 2.466107 02/08 0646 Last Documented: Result Date Time Pulse Ox 96 02/08 0757 B/P 112/58 02/08 0757 B/P Mean 76 02/08 0757 Pulse 72 02/08 0757 Resp 15 02/08 0757 O2 Delivery Nasal cannula 02/09 712 O2 Flow Rate 3.788222 02/08 07 Temp 37.0 02/08 0319 All vital signs available at the time of this en try have been reviewed. Anna Campoverde 02/09/20 0612: HPI-Back Pain Under 40 Presentation )( Sudden in Onset? Yes Free Text HPI Notes Free Text HPI Notes PT REPORTS HE WAS HAVING SEXUAL ACTIVITY AT 1 AM , WHEN HE FELT SUDDEN PAIN TO HIS LEFT CHEST AND LEFT ABDOMEN. CURRENTLY MORE COMFORTABLE, HAS 4/10 PAIN TO LEF T ABDOMEN STILL. PT REPORTS HE HAS BEEN COMPLIANT WITH HIS HTN ME DICATIONS. Review of Systems ROS Statements All systems rev neg except as marked. Focused Review of Systems Cardiovascular Reports: Chest pain. GI Reports: Abdominal pain. Past Medical History - Adult Additional Medical History HTN, CHF Additional Surgical History CCY Smoking status for patients 13 years old or olde r: Never Smoker Physical Exam Vital Signs Review of Vital Signs Reviewed Focused PE General/Const General/Const Awake, Alert, Well appearing MS Neck Neck Atraumatic, Supple, No meningismus, Full r patrick of motion, No swelling, Non-tender, No midline vertebral tend, No masses , No crepitus Resp/Chest Respiratory/Chest Breath sounds NL, Breath soun ds = bilat, No respiratory distress, No rales, No rhonchi, No wheezing Cardiovascular Cardiovascular Heart rate NL, Regular rhythm, H eart sounds NL, Peripheral circulation NL Abdomen/GI Abdomen/GI Soft, Non-tender, No guarding, No re bound MS Back Back Atraumatic, Inspection NL, Full range of m otion, Painless range of motion, Non-tender, No midline vertebral tend, N o paraspinal tenderness, No muscle spasm, Straight leg raise neg, No CVA ten derness MS Lower Extrem Lower Ext/Pelvis/MS Inspection NL, No swelling, Non-tender, No erythema, No deformity, Neurologic intact, Vascular intact, N o edema Neurologic Neurologic Oriented X3, Speech NL, No motor def icits, No sensory deficits, Reflexes equal bilat Additional PE MS Head Head Atraumatic, Normocephalic Eyes Eyes Atraumatic, PERRL, EOMI Ears/Nose/Throat Ears/Nose/Throat Atraumatic, Airway patent, Muc ous membranes moist MS Upper Extrem Upper Extremity/MS Atraumatic, Inspection NL, F ull range of motion Skin Skin Atraumatic, Color NL, No rash, Warm Psychiatric Psychiatric Affect NL, Mood NL Interpretation Diagnostics ECG #1 Interpretation Text/Dict Note NSR 73, NL AXIS, LONG QTC 566, T INVERSIONS INF LAT LEADS, ISCHEMIC CHANGES. Date 02/09/20 Time 06 Re-Evaluation MDM Free Text MDM Notes Free Text MDM Notes 0615: I D/W DR. JUAREZ [employer]PER[employer] , [place] NOT YET EQUIPPED FOR DISSECTION [place], RECOMMEND TRANSFER. 628: I discussed with transfer center esperanza Simeon emergent transfer. 620: Thru transfer center, [facility] Dr. Thomson co accepted transfer, requested images sent to him for emergent review, I sent images. Differential Diagnosis Differential Diagnosis Aortic dissection, Contus ion, Urinary obstruction, Urinary tract infection, Urolithiasis Patient Discharge Departure Vital Signs/Condition Condition Critical Clinical Impression Clinical Impression Primary Impression: THORACIC AND ABDOMINAL AORTI C DISSECTION Secondary Impressions: HYPERTENSIVE EMERGENCY Disposition Decision Transfer )( Request Time 620 )( Request Date 02/09/20 Call Returned Time 702 Spoke with: Attending physician [facility] Transfer Accepted Yes Accepted by: DR. RAMIREZ )( Acceptance Time 702 )( Acceptance Date 02/09/20 Transfer Reason Higher level of care Patient Status Stable w/in capabilities Discharge/Care Plan Counseled Regarding Diagnosi s, Lab results, Imaging studies, Need for admission, Need for transfer Critical Care Time Spent (minutes): 50 Services Performed Patient management by meIrving spent at bedside, Reviewing test results, Reviewing imaging, Discussing rosalia ent care, Documentation in record, Time with fam/surrogate, pt requested I speak to his , I spoke to on phone and informed her of critical condi tion and plan for transfer. Separately billable procedures excluded from irving e. CC Note 1 Total critical care time [50 ] minutes. Total critical care time documented does not include time spent on separately billed proc edures or the services of residents, students, nurses or physician assista nts. I personally saw and examined the patient. I have reviewed all diagno stic interpretations and treatment plans as written. I was present for the omalley portions of any procedures performed and the inclusive time noted in any critical care statement. Critical care time includes patient m anagement by me, time spent at the patients bedside, time to review lab and imaging results, discussing patient care, documentation in the medical record, and time spent with the f amily or caregiver. Supervising Physician Note Resident Saw Pt This patient was seen by a resident. I have pers onally seen the patient, performed the critical or omalley portions o f the service, and participated in the management of the patient. I have review ed and agree with the resident's note, and I have reviewed all labs , ECGs, and imaging studies or reports. I agree with this resident's findings, exam and plan. Electronically Signed by Jan Campoverde MD on at 0715 Electronically Signed by Amelia Limon MD R1 on 0 02/09/20 at 1242 Electronically Signed by Lulu Rhodes MD on at 0615 RPT #:[id number] END OF REPORT 2019-11-23 16:24:00-00:00 [facility] ([facility]) Hospitalist Discharge Summary REPORT#:[id number] REPORT STATUS: Signed DATE:11/23/19 TIME: 162 PATIENT: JORGE GOINS UNIT #: [id number] ROOM/BED: [address] : 86 AGE: 34 SEX: M ATTEND: Mohamud Gan MD ADM AUTHOR: Hermelinda Gan MD * ALL edits or amendments must be made on the el [employer]/computer document * PCP PCP PCP: PCP: No Primary or Family Physician Discharge to: home General Information Problem List/A P: 1. Hypertensive urgency 2. JENNIFER (acute kidney injury) 3. Elevated troponin Date of admission: Observation Start Date: Date of admission: 11/19/19 Discharge date: 11/23/19 Admission diagnosis: 1. malignant HTN 2. CHF exacerbation, unknown type 3. type II HI secondary to increased cardiac dem and 4. HLD 5. obesity BMI 35 6. JENNIFER vs CKD 3 Discharge diagnosis: Hypertensive emergency Acute on chronic combined heart failure Obesity Hyperlipidemia Type II HI secondary to cardiac demand JENNIFER on CKD Hospital course: Mr. Goins is a 34-year-old male with hypertens ion presented to the hospital with complaints of of neck pain and was found to be in hypertensive emergency. Patient had systolic blood pressure in t he 200s and diastolic in the 120's. He was initiated on IV antihypertensive and MAP was decreased gradually. He had troponin leak secondary to cardiac demand in the setting of hypertensive emergency. His echocardiogram showed LVEF 50 to 54% with grade 1 diastolic dysfunction. 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 His antihypertensive has been revised f or better blood pressure control. Secondary hypertension was also worked up and negative thus far. He remained hemodynamically stable for discharge an d advised to follow-up with hypertension specialist and compliance strongly advised. Pt. condition on discharge: stable Med Rec Med Rec Discharge meds: Stop taking the following medications: FUROSEMIDE (LASIX) 20 MG TAB 40 MILLIGRAM ORAL TWICE DAILY. Qty = 60 NIFEdipine XL (PROCARDIA XL) 30 MG TAB.SA 30 MILLIGRAM ORAL EVERY 12 HOURS. Days = 30 Qty = 60 POTASSIUM CHLORIDE ER (KLOR-CON 10) 10 MEQ TAB.S A 10 MILLIEQUIVALENT ORAL DAILY. Days = 30 Qty = 30 Continue taking these medications: ALBUTEROL (PROAIR HFA 90 MCG/ACT 8.5 GM) 90 MCG INHALER 2 PUFF INHALATION RT - EVERY 6 HOURS NEEDED. as needed for SOB ASPIRIN EC (ECOTRIN) 81 MG TAB.EC 81 MILLIGRAM ORAL DAILY. Days = 30 Qty = 30 CARVEDILOL (COREG) 25 MG TAB 25 MILLIGRAM ORAL TWICE DAILY WITH MEALS. Days = 30 Qty = 60 ACETAMINOPHEN/CODEINE (TYLENOL WITH CODEINE #4 3 00/60 MG) 300 MG-60 MG TAB 1 TABLET ORAL EVERY 6 HOURS NEEDED. as neede d for PAIN Days = 7 Qty = 20 ATORVASTATIN (LIPITOR) 20 MG TAB 20 MILLIGRAM ORAL BEDTIME. Days = 30 Qty = 30 This prescription has been renewed Start taking the following new medications: LOSARTAN (COZAAR) 50 MG TAB 100 MILLIGRAM ORAL DAILY. Qty = 30 No Refills NIFEdipine CC (ADALAT CC) 90 MG TAB.SA 90 MILLIGRAM ORAL EVERY 12 HOURS. Qty = 60 No Refills HYDROCHLOROTHIAZIDE (HYDRODIURIL) 25 MG TAB 25 MILLIGRAM ORAL DAILY. Qty = 30 No Refills Discharge Instructions Diet: cardiac Activity: as tolerated Prescriptions: e-prescribe Follow-up Appointments PCP: PCP: No Primary or Family Physician Follow up timeframe: In 1-2 weeks Objective General VS/I O: Vital Signs: Date Time Temp Pulse Resp B/P B/P Pulse O2 O2 F low FiO2 Mean Ox Delivery Rate 11/22 1532 98.8 88 18 129/79 95.7 100 Room air 11/22 1127 100.8 98 18 150/92 111.2 98 Room air 11/22 0708 98.6 88 18 155/105 121.4 99 Room air 11/22 0627 91 146/86 105.9 98 11/22 0437 92 127/82 97.3 97 11/22 0305 92 18 156/111 126.0 97 11/22 0053 85 18 156/98 117.6 100 11/21 2256 98.2 73 163/98 119.8 97 11/21 1927 98.2 92 18 195/81 119.1 97 11/21 1641 98.6 92 16 175/101 125.5 99 Room air 24 hour I O ending at 0700: 11/22 0700 11/21 1900 Intake Total 382 Output Total Balance 382 Intake, Oral 382 Medications: Active Meds + DC'd Last 24 Hrs Hydromorphone HCl 1 MG ONCE ONE IV (DC) Losartan Potassium 100 MG DAILY PO Nifedipine 90 MG Q12HR PO (CKD) Gadobenate Dimeglumine 0 .STK-MED ONE .ROUTE (DC ) Sodium Chloride 30 ML .STK-MED ONE IV (DC) Sodium Chloride 30 ML ONCE PRN IV (DC) Cyclobenzaprine HCl 10 MG Q8HR PO Gadobenate Dimeglumine 23 ML ONCE PRN IV (CKD) Sodium Chloride 10 ML ASDIR PRN IV Hydrochlorothiazide 25 MG DAILY PO Nifedipine 60 MG Q12HR PO (DC) Tramadol HCl 100 MG Q4H PRN PRN PO Acetaminophen 1,000 MG Q8H PRN PRN PO Atorvastatin Calcium 20 MG BEDTIME PO Heparin Sodium 5,000 UNITS Q8HR SUBQ Docusate Sodium 100 MG BID PO Hydralazine HCl 10 MG Q3H PRN PRN IV Ondansetron HCl 4 MG Q4H PRN PRN IV Ondansetron HCl 4 MG Q6H PRN PRN IV (DC) Nitroglycerin 0.4 MG Q5M PRN PRN SL Physical Exam General appearance: alert, awake Head/Eyes: EOMI, PERRL Neck: full range of motion, non-tender, normal t hyroid Cardiovascular: normal capillary refill, normal heart sounds, regular rate rhythm Respiratory: aerating well, clear to auscultatio n Abdomen: non-tender, normal bowel sounds, soft Extremities: moves all, normal capillary refill 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, oriented X 3, CNII-XII intact, normal speech, reflexes equal bilat, no motor deficits, no sensory deficits Skin: dry, intact, normal color Psychiatry: normal affect, normal judgment/insig ht, normal mood Results Findings/Data: Laboratory Tests 11/22 11/22 0208 0208 Chemistry Sodium (136 - 145 mmol/L) 134 L Potassium (3.5 - 5.1 mmol/L) 3.7 Chloride (98 - 107 mmol/L) 100.0 Carbon Dioxide (21 - 32 mmol/L) 26.0 Anion Gap (10 - 20) 11.7 BUN (7 - 18 mg/dL) 24 H Creatinine (0.7 - 1.3 mg/dL) 1.50 H Glomerular Filtr Rate (>=60 mL/min) > 60 BUN/Creatinine Ratio (10 - 20) 16.3 Glucose (74 - 106 mg/dL) 104 Calcium (8.5 - 10.1 mg/dL) 8.9 Magnesium (1.8 - 2.4 mg/dL) 2.3 Laboratory Tests 11/22 0208 Hematology WBC (4.5 - 12.5 K/mm3) 8.4 RBC (4.0 - 5.8 mill/mm3) 5.74 Hgb (13.0 - 17.5 gram/dL) 15.7 Hct (42.0 - 52.0 %) 49.7 MCV (80 - 98 fL) 86.6 MCH (27.0 - 33.0 picogram) 27.4 MCHC (33.0 - 36.0 gram/dL) 31.6 L RDW (11.6 - 16.2 %) 18.5 H Plt Count (150 - 450 K/mm3) 359 MPV (6.7 - 11.0 fL) 10.0 Radiology data: Recent Impressions: MAGNETIC RESONANCE IMAGING - MRA ABD WO/W CONT 0 11/21 3524 Report Impression - Status: SIGNED Entered: 11/22/2019 4367 IMPRESSION: Unremarkable renal arteries Impression By: Evelyne Chino M.D. Treatments Procedures Lab: Chemistry last 24 hrs: 11/23 207 Chemistry Sodium (136 - 145 mmol/L) 134 L Potassium (3.5 - 5.1 mmol/L) 3.7 Chloride (98 - 107 mmol/L) 100.0 BUN (7 - 18 mg/dL) 24 H Creatinine (0.7 - 1.3 mg/dL) 1.50 H Glucose (74 - 106 mg/dL) 104 Hematology last 24 hrs: 11/22 020 Hematology WBC (4.5 - 12.5 K/mm3) 8.4 Hgb (13.0 - 17.5 gram/dL) 15.7 Hct (42.0 - 52.0 %) 49.7 Plt Count (150 - 450 K/mm3) 359 Imaging: Recent Impressions: MAGNETIC RESONANCE IMAGING - MRA ABD WO/W CONT 0 11/21 1729 Report Impression - Status: SIGNED Entered: 11/22/2019 1834 IMPRESSION: Unremarkable renal arteries Impression By: Evelyne Chino M.D. Quality Current Medications Current medication review: I attest that the foregoing medication list in [facility] medical record is true, accurate, and complete to the best of my knowled ge. Electronically Signed by Hermelinda Gan MD on 0 11/30/19 at 2113 RPT #:[id number] END OF REPORT 2019-11-22 20:20:00-00:00 [facility] ([facility]) Hospitalist Progress Note REPORT#:[id number] REPORT STATUS: Signed DATE:11/22/19 TIME: 2019 PATIENT: JORGE GOINS UNIT #: [id number] ROOM/BED: [address] : 86 AGE: 34 SEX: M ATTEND: Sebastián Davis II, MD ADM AUTHOR: Sebastián Davis II, MD * ALL edits or amendments must be made on the el [employer]/computer document * Subjective Chief Complaint: Patient clarifies headache as upper shoulder/nec k pain more prominent on the left side with radiation up to his extremities. Requesting Flexeril Review of Systems All systems rev neg: except as marked Objective General VS/I O: Vital Signs: Date Time Temp Pulse Resp B/P B/P Pulse O2 O2 F low FiO2 Mean Ox Delivery Rate 11/21 192 98.2 92 18 195/81 119.1 97 11/21 1641 98.6 92 16 175/101 125.5 99 Room air 11/21 1116 98.4 86 18 164/107 126.0 98 Room air 11/21 0712 98.8 95 17 178/113 134.7 99 Room air 11/21 0442 98.2 89 17 175/84 114.0 100 11/21 0049 98.8 89 17 171/93 118.7 98 24 hour I O ending at 0700: 11/21 0700 11/20 1900 Intake Total 250 720 Output Total Balance 250 720 Intake, Oral 250 720 Number 1 Bowel Movements Number Voids 4 6 Patient Weight Weight (lb): Weight (oz): Weight (kg): 113.636 Medications: Active Meds + DC'd Last 24 Hrs Losartan Potassium 100 MG DAILY PO Nifedipine 90 MG Q12HR PO (UNV) Gadobenate Dimeglumine 0 .STK-MED ONE .ROUTE (DC ) Sodium Chloride 30 ML .STK-MED ONE IV (DC) Sodium Chloride 30 ML ONCE PRN IV (DC) Cyclobenzaprine HCl 10 MG Q8HR PO Losartan Potassium 50 MG ONCE ONE PO (DC) Gadobenate Dimeglumine 23 ML ONCE PRN IV (CKD) Sodium Chloride 10 ML ASDIR PRN IV Hydrochlorothiazide 25 MG DAILY PO Hydrochlorothiazide 25 MG DAILY PO (DC) Nifedipine 60 MG Q12HR PO (DCr) Tramadol HCl 100 MG Q4H PRN PRN PO Losartan Potassium 50 MG DAILY PO (DC) Acetaminophen 1,000 MG Q8H PRN PRN PO Atorvastatin Calcium 20 MG BEDTIME PO Heparin Sodium 5,000 UNITS Q8HR SUBQ Docusate Sodium 100 MG BID PO Furosemide 80 MG Q12HR IV (DC) Hydralazine HCl 10 MG Q3H PRN PRN IV Ondansetron HCl 4 MG Q4H PRN PRN IV Ondansetron HCl 4 MG Q6H PRN PRN IV Nitroglycerin 0.4 MG Q5M PRN PRN SL Physical Exam General appearance: alert, awake, oriented Head/Eyes: EOMI, PERRL Neck: full range of motion, non-tender, normal t hyroid Cardiovascular: normal capillary refill, normal heart sounds, regular rate rhythm Respiratory: aerating well, clear to auscultatio n Abdomen: non-tender, normal bowel sounds, soft Extremities: moves all, normal capillary refill 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, oriented X 3, CNII-XII intact, normal speech, reflexes equal bilat, no motor deficits, no sensory deficits Skin: dry, intact, normal color Psychiatry: normal affect, normal judgment/insig ht, normal mood Diagnosis, Assessment Plan Problem List/A P: 1. Hypertensive urgency 2. JENNIFER (acute kidney injury) 3. Elevated troponin Free Text DxA P Notes Free text DxA P notes: Mr. Goins is a 34-year-old male with malignant hypertension who presents in hypertensive emergency with elevated troponin, JENNIFER, headache. He is status post Cardene drip and currently hemodynamically stabl e. We are adjusting his antihypertensive medications and performing a wo rk-up for secondary causes of hypertension. #1 hypertensive emergency: With NSTEMI, JENNIFER. Treated blood pressure 205/150 on admission. Patient noncompliant with med ications at home. He states that Coreg makes him dizzy. Coreg discontinued 11/21 changes: Increase nifedipine to 90 mg twic e daily, increase losartan to 100 mg daily. Excess efficacy of new regimen on 11/22. Consider adding topical treatment (clonidine patch) if pressures remain elevated hydrochlorothiazide 25 mg daily for combination pill therapy. (Hyzaar) -Secondary hypertension work-up: TSH wit hin normal limits, PAC/PRA pending, MR angiogram negative for renal artery stenosis -Patient actively working on obtaining follow-up with an hypertension specialist. He called Dr. Correa clinic today, no availability this year. Gave information for Dr. Leggett 's clinic on 11/21, check w patient to see if he was able to obtain a hospital discharge follow-up ap pointment 2. Acute on chronic diastolic heart fail ure, with exacerbation: Presented with orthopnea and lower extremity edema. Status post IV Lasix twice daily, maintenance t herapy with p.o. hydrochlorothiazide Echo this admission shows EF 50 to 55%, grade 1 diastolic dysfunction, mild left atrial enlargement, mild aortic regurgitati on, mild to moderate mitral regurgitation, mild tricuspid regurgitation Carvedilol discontinued due to dizziness, no beta-roderick needed for diastolic heart failure Aspirin 81 mg daily, losartan 50 mg daily 3. Obesity, BMI 35. Counseled 4. Hyperlipidemia. LDL 61 this admission. Contin ue to monitor. 5. NSTEMI. Likely type II secondary to hypertens anupama emergency. Cardiology consulted, no ischemic work-up warranted for thi s type II NSTEMI. Continue monitor patient on telemetry. Diet: Cardiac Code: Full P PX: Lovenox Disposition: Home once hypertension impr josé. Patient will need follow-up with PCP/hypertension specialist. History of noncompl iance, please try to use combination pill therapy and maximum twi ce daily frequency for home medication regimen. Electronically Signed by Sebastián Davis II, MD on at 2025 RPT #:[id number] END OF REPORT 2019-11-21 17:10:00-00:00 [facility] ([facility] Hospitalist Progress Note REPORT#:[id number] REPORT STATUS: Signed DATE:11/21/19 TIME: 1710 PATIENT: JORGE GOINS UNIT #: [id number] ROOM/BED: [address] : 86 AGE: 34 SEX: M ATTEND: Sebastián Davis II, MD ADM AUTHOR: Sebastián Davis II, MD * ALL edits or amendments must be made on the [employer]/computer document * Subjective Chief Complaint: Severe headache unresponsive to Tylenol and tram adol Review of Systems All systems rev neg: except as marked Objective General VS/I O: Vital Signs: Date Time Temp Pulse Resp B/P B/P Pulse O2 O2 F low FiO2 Mean Ox Delivery Rate 11/20 1637 97.9 86 18 153/98 116.2 97 Nasal cannula 11/20 1330 94 20 167/100 122 95 Room air 11/20 1147 98.6 85 18 173/104 126.9 98 Nasal cannula 11/20 0923 99.7 85 18 170/98 122.0 100 Nasal cannula 11/20 0808 99.3 96 18 167/113 131.0 98 Nasal cannula 11/20 0415 98.8 88 17 173/108 129.4 100 11/20 0032 98.8 84 147/79 101.7 11/19 2318 98.8 83 17 164/103 123.5 98 11/19 2213 75 154/92 112.4 11/19 2100 Nasal [id number] cannula 11/20 2027 98.2 88 17 176/127 143.2 100 11/19 1824 90 26 94 11/19 1815 88 21 179/118 141 94 11/19 1800 87 18 174/112 138 96 11/19 1745 89 18 171/107 133 97 11/19 1743 83 18 98 11/19 1730 87 19 160/95 123 99 11/19 1715 87 21 159/95 121 99 24 hour I O ending at 0700: 11/20 0700 11/19 1900 Intake Total 820.00 Output Total 1900 1725 Balance -1900 -905.00 Intake, IV 500.00 Intake, Oral 200 Intake, Tube 120 Irrigant Output, Urine 1900 1725 Patient Weight Weight (lb): Weight (oz): Weight (kg): 113.636 Medications: Active Meds + DC'd Last 24 Hrs Nifedipine 60 MG Q12HR PO Tramadol HCl 100 MG Q4H PRN PRN PO Hydrochlorothiazide 25 MG DAILY PO (CAN) Losartan Potassium 50 MG DAILY PO Morphine Sulfate 2 MG NOW ONE IV (DC) Acetaminophen 1,000 MG Q8H PRN PRN PO Tramadol HCl 100 MG Q12H PRN PRN PO (DC) Atorvastatin Calcium 20 MG BEDTIME PO Morphine Sulfate 4 MG NOW ONE IV (DC) Nifedipine 30 MG Q12HR PO (DC) Carvedilol 12.5 MG BID MEALS PO (DC) Heparin Sodium 5,000 UNITS Q8HR SUBQ Docusate Sodium 100 MG BID PO Furosemide 80 MG Q12HR IV Hydralazine HCl 10 MG Q3H PRN PRN IV Ondansetron HCl 4 MG Q4H PRN PRN IV Acetaminophen 650 MG Q6H PRN PRN PO (DC) Nicardipine HCl 25 MG TITRATE IV (DC) Sodium Chloride 250 ML Mupirocin 1 APPLIC BID NASAL (DC) Ondansetron HCl 4 MG Q6H PRN PRN IV Nitroglycerin 0.4 MG Q5M PRN PRN SL Physical Exam General appearance: obese, alert, awake, oriente d Head/Eyes: EOMI, PERRL Neck: full range of motion, non-tender, normal t hyroid Cardiovascular: normal capillary refill, normal heart sounds, regular rate rhythm Respiratory: aerating well, clear to auscultatio n Abdomen: non-tender, normal bowel sounds, soft Extremities: moves all, normal capillary refill 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, oriented X 3, CNII-XII intact, normal speech, reflexes equal bilat, no motor deficits, no sensory deficits Skin: dry, intact, normal color Psychiatry: normal affect, normal judgment/insig ht, normal mood Results Findings/Data: Laboratory Tests 11/20 11/20 11/19 0254 0252 2254 Chemistry Sodium (136 - 145 mmol/L) 135 L Potassium (3.5 - 5.1 mmol/L) 4.7 Chloride (98 - 107 mmol/L) 102.0 Carbon Dioxide (21 - 32 mmol/L) 25.0 Anion Gap (10 - 20) 12.7 BUN (7 - 18 mg/dL) 25 H Creatinine (0.7 - 1.3 mg/dL) 1.40 H Glomerular Filtr Rate (>=60 mL/min) > 60 BUN/Creatinine Ratio (10 - 20) 17.7 Glucose (74 - 106 mg/dL) 114 H Calcium (8.5 - 10.1 mg/dL) 8.8 Magnesium (1.8 - 2.4 mg/dL) 2.2 Troponin I (0 - 0.045 ng/mL) 0.072 *H Triglycerides (20 - 150 mg/dL) 74 Cholesterol (0 - 200 mg/dL) 111 LDL Cholesterol Measurd (100 - 129 mg/dL) 61 L HDL Cholesterol (40 - 60 mg/dL) 37 L Cholesterol/HDL Ratio (0 - 4.9 RATIO) 3.0 Laboratory Tests 11/20 0254 Hematology WBC (4.5 - 12.5 K/mm3) 9.1 RBC (4.0 - 5.8 mill/mm3) 5.18 Hgb (13.0 - 17.5 gram/dL) 14.1 Hct (42.0 - 52.0 %) 45.0 MCV (80 - 98 fL) 86.9 MCH (27.0 - 33.0 picogram) 27.2 MCHC (33.0 - 36.0 gram/dL) 31.3 L RDW (11.6 - 16.2 %) 17.8 H Plt Count (150 - 450 K/mm3) 307 MPV (6.7 - 11.0 fL) 10.0 Diagnosis, Assessment Plan Problem List/A P: 1. Hypertensive urgency 2. JENNIFER (acute kidney injury) 3. Elevated troponin Free Text DxA P Notes Free text DxA P notes: Mr. Hyatt is a 34-year-old male with malignant hypertension who presents in hypertensive emergency with elevated troponin, JENNIFER, headache. He is status post Cardene drip and currently hemodynamically stabl e. We are adjusting his antihypertensive medications and performing a wo rk-up for secondary causes of hypertension. #1 hypertensive emergency: With NSTEMI, JENNIFER. Treated blood pressure 205/150 on admission. Patient noncompliant with med ications at home. He states that Coreg makes him dizzy. Coreg discontinued Nifedipine increased to 60 mg twice daily IV Lasix twice daily, switched to hydrochloroth iazide once euvolemic for combination pill therapy Losartan 50 mg daily -Secondary hypertension work-up: TSH wit hin normal limits, PAC/PRA pending, MR angiogram ordered to rule out renal artery steno sis -Patient given information for hypertens ion specialist as outpatient and asked to make follow-up appointment, will follow up on if he did this prior to discharge 2. Acute on chronic diastolic heart fail ure, with exacerbation: Presented with orthopnea and lower extremity edema. IV Lasix twice daily Echo this admission shows EF 50 to 55%, grade 1 diastolic dysfunction, mild left atrial enlargement, mild aortic regurgitati on, mild to moderate mitral regurgitation, mild tricuspid regurgitation Carvedilol discontinued due to dizziness Aspirin 81 mg daily, losartan 50 mg daily 3. Obesity, BMI 35. Counseled 4. Hyperlipidemia. LDL 61 this admission. Contin ue to monitor. 5. NSTEMI. Likely type II secondary to hypertens anupama emergency. Cardiology consulted, no ischemic work-up warranted for thi s type II NSTEMI. Continue monitor patient on telemetry. Diet: Cardiac Code: Full P PX: Lovenox Disposition: Home once hypertension impr josé. Patient will need follow-up with PCP/hypertension specialist Electronically Signed by Sebastián Davis II, MD on at 5130 RPT #:[id number] END OF REPORT 2019-11-20 20:43:00-00:00 [id number] [facility] PATIENT NAME: JORGE GOINS ADMIT DATE: 11/18 ACCOUNT NO: [id number] ROOM NO: [id number] AGE: 34 REPORT TYPE: eECHOCARDIOGRAM REPORT SEX: M DATE OF : [birth year] ADMITTING PHYSICIAN:Sebastián Davis II, MD ATTENDING PHYSICIAN:Sebastián Davis II, MD *[facility]* [address] [place], [place] [address] Transthoracic Echocardiogram Patient: Jorge Goins Study Date: 11/20/2019 BP: Location: [facility] URN: [id number] : 1985 Age: 34 Height: 71 in / 180.3 cm Gender: M Weight: 25 0.8 lb / 114 kg BMI/BSA: 35.1 kg/m 2 / 2.43 m 2 *Ordering Physician: * Anette Hughes *Interpreting Physician: * Johana Yu MD *Customer Technical Services Manager: Allen Kimball Indications: Hypertension. Study data: Transthoracic echocardiogram. Proced ure: Transthoracic echocardiography was performed. Image quality wa s adequate. Complete 2D, complete spectral Doppler, and color Doppler . Location: Bedside. Patient status: Inpatient. Patient room number: S15. Study status: Routine. Rhythm: Normal sinus rhythm. Findings Left ventricle: The cavity size is normal. Wall thickness is mildly to moderately increased. Systolic function is at th e lower limits of normal. The estimated ejection fraction is 50-54 %. Doppler parameters are consistent with abnormal left ventricular re laxation (grade 1 diastolic dysfunction). Right ventricle: The cavity size is normal. Syst olic function is PATIENT NAME: JORGE GOINS [id number] normal. Left atrium: The atrium is mildly dilated. Right atrium: The atrium is normal in size. Aorta: Aortic root: The aortic root is normal in size. Aortic valve: The valve is structurally normal. The valve is trileaflet. There is no evidence of stenosis. Th ere is mild regurgitation. Mitral valve: The valve is structurally normal. There is no evidence of stenosis. There is mild to moderate regurgitation. Tricuspid valve: The valve is structurally brooklynn l. There is mild regurgitation. RVSP is estimated at 43.89mmHg. Pulmonic valve: The valve is structurally normal . There is no regurgitation. Pericardium: There is no pericardial effusion. Systemic veins: Inferior vena cava: The vessel is normal in size . Measurements Left ventricle Value 03/28/2018 Ref Aortic valv e continued Value 03/28/2018 Ref JULIET, LAX 4.8 cm 5.0 4.2 - LVOT/AV, VTI 0.76 0.71 ----- 5.8 ratio ESD, LAX 4.0 cm 3.7 2.5 - NORMA, VTI 2.44 cm 2 2.56 ----- 4.0 LVOT/AV, Vpeak 0.73 0.66 ----- ESD/bsa, LAX 1.7 cm/m 2 1.6 1.3 - ratio 2.1 NORMA, Vmax 2.33 cm 2 2.38 ----- FS, LAX 17 % 26 25 - AR peak v 3.47 m/sec ----- 43 AR decel time 1015 ms ----- PW, ED 1.6 cm 1.5 0.6 - AR PHT 294 ms ----- 1.0 AR peak grad 48 mm Hg ----- IVS/PW, ED 0.98 0.9 ------ EF 35 % 50 52 - Mitral valve Value 03/28/2018 Ref 72 E-septal 1.2 cm ----- E', med dalton, 7.2 cm/sec >=7.0 separa tion TDI E-F slope 0.1 m/sec ----- E/e', med 11 ------ Peak E 0.8 m/sec 0.84 ----- dalton, TDI Peak A 0.44 m/sec 0.47 ----- Mean v, D 0.61 m/sec ----- PATIENT NAME: JORGE GOINS [id number] LVOT Value 03/28/2018 Ref VTI leaflet 19.3 cm ----- Diam, S 2.02 cm 2.14 ------ coapt Area 3.2 cm 2 3.6 ------ Decel time 180 ms 158 ----- Peak matt, S 1.04 m/sec 1.06 ------ PHT 43 ms ----- Mean matt, S 0.8 m/sec 0.81 ------ Mean grad, D 1.6 mm Hg ----- VTI, S 16.0 cm 17.4 ------ Peak grad, D 4.1 mm Hg 2.8 ----- Peak grad, S 4 mm Hg 5 ------ Peak E/A ratio 1.8 1.79 ----- Mean grad, S 3 mm Hg 3 ------ MVA, PHT 5.1 cm 2 ----- SV 51 ml 62 ------ MR peak v 3.69 m/sec 3.37 ----- SV/bsa 21 ml/m 2 26 ------ Tricuspid valve Value 03/28/2018 Ref Ventricular septum Value 03/28/2018 Ref TR peak v 2.91 m/sec 2.45 <=2.8 IVS, ED 1.6 cm 1.3 0.6 - Peak RV-RA 34 mm Hg 24 ----- 1.0 grad, S Right ventricle Value 03/28/2018 Ref Aortic jarad t Value 03/28/2018 Ref JULIET, LAX 3.6 cm 3.7 ------ Root diam, ED 3.75 cm 4.76 ----- Pressure, S 49 mm Hg 34 ------ MM Left atrium Value 03/28/2018 Ref Ascending aort a Value 03/28/2018 Ref AP dim, ES 4.73 cm 4.76 3.00 - AAo AP diam, S 2.9 cm 3.3 ----- 4.00 AAo AP 1.2 cm/m 2 1.4 ----- AP dim, ES MM 4.6 cm 4.8 3.0 - diam/bsa, S 4.0 LA/Ao root 1.23 1 ------ Pulmonary artery Value 03/28/2018 Ref ratio, MM Pressure, S 44.1 mm Hg 29.0 ----- Aortic valve Value 03/28/2018 Ref Systemic vein s Value 03/28/2018 Ref Leaflet sep, 2.23 cm ------ Estimate d CVP 15 mm Hg 10 ----- MM Peak v, S 1.42 m/sec 1.6 ------ Mean v, S 1.02 m/sec 1.2 ------ VTI, S 20.9 cm 24.4 ------ Mean grad, S 4.5 mm Hg 6.3 ------ PATIENT NAME: JORGE GOINS [id number] Peak grad, S 8.0 mm Hg 10.2 ------ Conclusions Summary: 1. Left ventricle: The cavity size is normal. Wa ll thickness is mildly to moderately increased. Systolic function is a t the lower limits of normal. The estimated ejection fraction is 50-5 4%. Doppler parameters are consistent with abnormal left ventricular r elaxation (grade 1 diastolic dysfunction). 2. Left atrium: The atrium is mildly dilated. 3. Aortic valve: There is mild regurgitation. 4. Mitral valve: There is mild to moderate regur gitation. 5. Tricuspid valve: There is mild regurgitation. RVSP is estimated at 43.89mmHg. Prepared and electronically signed by Johana Yu MD 11/20/2019 20:43 at 2043 PATIENT NAME: JORGE GOINS [id number] 08:15:00-00:00 [facility] ([facility]) Cardiology Consultation REPORT#:[id number] REPORT STATUS: Signed DATE:11/20/19 TIME: 814 PATIENT: JORGE GOINS UNIT #: [id number] ROOM/BED: [address] : [birth year] AGE: 34 SEX: M ATTEND: Codie Hughes MD ADM AUTHOR: Paresh Daigle BRAZING MACHINE TENDER * ALL edits or amendments must be made on the el [employer]/computer document * History of Present Illness HPI HPI: This is a 34-year-old male with history of hyper tension, diastolic heart failure. Patient presents to [facility] with complaints of shortness of breath. Was noted with hypertensive emergency wi th blood pressure 205/150, started on nicardipine, chest x-ray note d with pulmonary congestion cardiology was consulted. Patient seen in room reports has been compliant with his lisinopril however he did stop his Coreg several months ago secondary to intermittent dizziness with therapy for the past week or 2 has noticed more shortness of breath lower extremity swelling ort hopnea early satiety at least over 15 pounds weight gain. Reports increase his Lasix to 80 twice a day without much improvement in symptoms therefore c mandi to the ER for further evaluation. History - Adult longitudinal Additional medical history: Diastolic dysfunction, hypertension Additional surgical history: Cholecystectomy Additional family history: Mother alive history of diabetes hypertension Father unknown Additional social history: single he works in [employer] he denies any alco hol use or tobacco use Allergies: Coded Allergies: Iodine and Iodide Containing Produc (Severe, HIV ES 11/19/19) shellfish derived (Intermediate, RASH 11/19/19) Review of Systems Constitutional: Denies: fatigue, fever, generalized weakness. Skin: Denies: bruising, contusion, diaphoresis. Allergy/Immun: Denies: anaphylaxis, hives. Eyes: Denies: visual loss/blurred. ENT: Denies: sore throat, throat pain. Respiratory: Reports: COATES (dyspnea on exertion), non producti ve cough, SOB. Cardiovascular: Reports: dyspnea on exertion, edema, orthopnea. Denies: chest pain, palpitations, parox noctural dyspnea. GI: Reports: abdominal pain. Denies: constipation, d iarrhea, dysphagia, GERD, hematemesis, hematochezia, melena, nausea, vomit ing. : Denies: dysuria, hematuria, nocturia, urgency. Musculoskeletal: joint pain. Heme: Denies: bleeding, bruising. Endocrine: Denies: cold intolerance, heat intolerance, poly dipsia, polyphagia, polyuria, weight gain, weight loss. Neuro: Denies: headache, lightheaded. Objective Physical Exam VS/I O: Laboratory Tests: 11/19 11/19 11/19 11/19 11/18 0313 0313 0313 0313 1800 Chemistry Hemoglobin A1c (% HbA1) 6.1 Estim Average Glucose (MG/DL) 128 Lactic Acid (0.4 - 1.9 MMOL/L) 1.0 Phosphorus (2.5 - 4.9 mg/dL) 3.1 Magnesium (1.8 - 2.4 mg/dL) 1.9 Troponin I (0 - 0.045 ng/mL) 0.020 B-Natriuretic Peptide (0 - 100 364.76 H pgram/mL) Lipase (73.0 - 393.0 U/L) 38 L TSH (0.36 - 3.74 uIU/mL) 0.555 Free T4 (0.76 - 1.46 ng/dL) 1.48 H Free T4 Index (1.3 - 5.1 FTI) 4.25 Thyroxine (T4) (4.5 - 13.9 ug/dL) 11.2 T3 Uptake (30.0 - 40.0 %) 38.0 Hematology WBC (4.5 - 12.5 K/mm3) 11.4 RBC (4.0 - 5.8 mill/mm3) 5.19 Hgb (13.0 - 17.5 gram/dL) 14.3 Hct (42.0 - 52.0 %) 44.3 MCV (80 - 98 fL) 85.4 MCH (27.0 - 33.0 picogram) 27.6 MCHC (33.0 - 36.0 gram/dL) 32.3 L RDW (11.6 - 16.2 %) 17.2 H Plt Count (150 - 450 K/mm3) 316 MPV (6.7 - 11.0 fL) 10.5 11/18 11/18 11/18 1800 1800 1735 Chemistry Sodium (128 - 145 mmol/L) 136 Potassium (3.5 - 5.1 mmol/L) 4.6 Chloride (98 - 107 mmol/L) 100.0 Carbon Dioxide (22 - 29 mmol/L) 22.8 Anion Gap (10 - 20 mmol/L) 18 BUN (7 - 22 mg/dL) 32 H Creatinine (0.55 - 1.3 mg/dL) 1.92 H Glomerular Filtr Rate (>=60 mL/min) 49 BUN/Creatinine Ratio (10 - 20) 16.7 Glucose (70 - 110 mg/dL) 97 Calcium (8.0 - 10.5 mg/dL) 8.6 Total Bilirubin (0.2 - 1.2 mg/dL) 1.20 Direct Bilirubin (0.0 - 0.30 mg/dL) 0.70 H AST (10 - 39 U/L) 35 ALT (10 - 69 U/L) 27 Total Alk Phosphatase (50 - 139 U/L) 143 H Troponin I (0.00 - 0.056 ng/mL) 0.06 *H B-Natriuretic Peptide (0 - 100 pg/mL) 978 H Total Protein (6.1 - 7.8 gram/dL) 7.7 Albumin (3.3 - 4.4 g/dL) 3.2 L Globulin (1 - 10 G/DL) 4.5 Albumin/Globulin Ratio (0.75 - 1.50) 0.7 L Coagulation INR (0.8 - 1.2) 1.4 H PTT (Nathan) (25.5 - 34.3 seconds) 25.8 PT Patient/Control Mix (9.0 - 13.0 seconds) 13. 3 H Hematology WBC (4.5 - 12.5 K/mm3) 7.3 RBC (4.0 - 5.8 mill/mm3) 5.12 Hgb (13.0 - 17.5 gram/dL) 13.7 Hct (42.0 - 52.0 %) 43.6 MCV (80 - 98 fL) 85.2 MCH (27.0 - 33.0 picogram) 26.8 L MCHC (33.0 - 36.0 gram/dL) 31.4 L RDW (11.6 - 16.2 %) 16.9 H RDW Std Deviation (37.0 - 51.0 fL) 53.1 H Plt Count (150 - 450 K/mm3) 301 MPV (6.7 - 11.0 fL) 10.2 Serology Nasal/Oral COVID-19 PCR Negative 11/18 1637 Toxicology Urine Opiates Screen (NEGATIVE) POSITIVE H Urine Methadone Screen (<300 ng/mL) NEGATIVE Urine Barbiturates (NEGATIVE) NEGATIVE Ur Phencyclidine Scrn (NEGATIVE) NEGATIVE Ur Amphetamines Screen (NEGATIVE) NEGATIVE MDMA (NEGATIVE) NEGATIVE U Benzodiazepines Scrn (NEGATIVE) NEGATIVE Urine Cocaine Screen (NEGATIVE) NEGATIVE Urine Cannabinoids (<50 ng/mL) NEGATIVE Microbiology: Date/Time Procedure - Status Source Growth 11/18 1800 Blood Culture - RECD BLOOD 11/18 1745 Blood Culture - RECD BLOOD Recent Impressions: RADIOLOGY - XR CHEST 1 V 11/18 1732 Report Impression - Status: SIGNED Entered: 11/19/2019 1811 IMPRESSION: Congestive heart failure with pulmon kenan edema and probable small bilateral pleural effusions Impression By: Evelyne Chino M.D. CAT SCAN - CT HEAD/BRAIN W/O CONT 11/185 Report Impression - Status: SIGNED Entered: 11/19/2019 2140 IMPRESSION: Unremarkable brain. Impression By: Evelyne Chino M.D. RADIOLOGY - XR CHEST 1 V 11/19 0600 Report Impression - Status: SIGNED Entered: 11/20/2019 0716 IMPRESSION: No congestion or infiltrates. Small right effusi on and dependent changes. Moderate cardiomegaly. Correlate for cardiomyopa thy or pericardial effusion. Impression By: [email or web address] - Thony Doyle M.D. Active Meds + DC'd Last 24 Hrs Atorvastatin Calcium 20 MG BEDTIME PO Heparin Sodium 5,000 UNITS Q8HR SUBQ Docusate Sodium 100 MG BID PO Furosemide 40 MG Q12HR IV (DCr) Furosemide 80 MG Q12HR IV (UNV) Carvedilol 25 MG BID MEALS PO Morphine Sulfate 2 MG ONCE ONE IV (DC) Morphine Sulfate 2 MG ONCE ONE IV (DC) Hydralazine HCl 10 MG Q3H PRN PRN IV Ondansetron HCl 4 MG Q4H PRN PRN IV Acetaminophen 650 MG Q6H PRN PRN PO Nicardipine HCl 25 MG TITRATE IV Sodium Chloride 250 ML Morphine Sulfate 4 MG ONCE ONE IV (DC) Tramadol HCl 50 MG ONCE ONE PO (DC) Mupirocin 1 APPLIC BID NASAL Acetaminophen 650 MG Q4H PRN PRN PO (DC) Ondansetron HCl 4 MG Q6H PRN PRN IV Nitroglycerin/Dextrose 250 ML X1ED STA IV (CAN) Nitroglycerin/Dextrose 250 ML X1ED STA IV (DC) Acetaminophen 500 MG X1ED STA PO (DC) Aspirin 325 MG X1ED STA PO (DC) Furosemide 40 MG X1ED STA IV (DC) Nitroglycerin 1 GM X1ED STA TRANSDERM (DC) Nitroglycerin 0.4 MG Q5M PRN PRN SL Vital Signs: Date Time Temp Pulse Resp B/P B/P Pulse O2 O2 F low FiO2 Mean Ox Delivery Rate 11/19 0400 99.0 11/19 0200 98.0 11/19 0200 Nasal 2.136393 cannula 11/19 0105 93 18 176/99 124 99 Nasal 4.227408 cannula 11/19 0002 98.7 91 18 206/140 162 98 Nasal 3.00 0000 cannula 11/18 2308 97 18 209/122 151 94 Nasal 2.435426 cannula 11/18 2235 85 18 205/120 148 94 Nasal 2.722540 cannula 11/189 99.3 89 18 196/116 142 94 Nasal 2.00 0000 cannula 11/184 93 18 196/128 150 95 Nasal 2.437044 cannula 11/189 92 18 208/129 155 98 Nasal 2.193709 cannula 11/187 85 18 203/121 148 96 Nasal 2.264421 cannula 11/186 89 18 212/109 143 95 Room air 2.0000 00 11/18 2028 91 16 194/107 136 95 Nasal 2.499326 cannula 11/18 2012 94 16 224/138 166 97 Nasal 2.773560 cannula 11/18 1958 94 16 246/138 174 95 Nasal 2.003165 cannula 11/18 1952 96 16 215/414 347 94 Nasal 2.079380 cannula 11/18 1927 94 16 208/139 162 93 Nasal 2.128442 cannula 11/18 1902 98.7 102 18 220/140 166 93 Nasal 2.0 60978 cannula 11/18 1842 95 18 205/147 166 94 Room air 11/18 1816 93 11/18 1800 98.9 94 17 204/136 158 93 Nasal 2.00 0000 cannula 11/18 1710 Nasal 2.253422 cannula 11/18 1708 99.0 102 18 205/150 168 95 Room air 24 hour I O ending at 0700: 11/19 0700 11/18 1900 Intake Total 450.00 Output Total 2074 650 Balance -1625.00 -650 Intake, IV 450.00 Number Voids 2 1 Output, Urine 2075 650 Patient 113.636 kg Weight Weight Stated/Reported Measurement Method Patient Weight Weight (lb): Weight (oz): Weight (kg): 113.636 General appearance: alert, awake, oriented Head/Eyes: atraumatic, EOMI ENT: moist mucosal membranes Neck: JVD present, full range of motion, no brui t/NL carotids Cardiovascular: CV assessment: regular rate and rhythm, normal heart sounds Respiratory: crackles, shortness of breath Abdomen: soft, non-tender, normal bowel sounds, no distention Genitourinary: no zuñiga Upper extremity: UE assessment: normal capillary refill, normal temperature Lower extremity: LE assessment: edema, normal temperature Musculoskeletal: full range of motion 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, oriented X 3, normal speech, n o motor deficits Skin: dry, intact Diagnosis, Assessment Plan Free Text DxA P Notes Free Text DxA P Notes: Impression: -Hypertensive emergency -Acute on chronic diastolic heart failure -Elevated troponin secondary to hypertensive robina rgency/type II -JENNIFER Plan: -Patient presents with hypertensive urge ncy with shortness of breath orthopnea lower extremity edema -We will restart oral antihypertensives -We will increase Lasix to 80 mg twice daily -Echo to evaluate heart function -Continue Cardene drip wean as BP tolerates -We will continue to follow -Labs in a.m. Electronically Signed by Paresh Daigle NP on at 0938 RPT #:[id number] END OF REPORT 2019-11-20 08:15:00-00:00 [facility] ([facility]) Cardiology Consultation REPORT#:[id number] REPORT STATUS: Signed DATE:11/20/19 TIME: 814 PATIENT: JORGE GOINS UNIT #: [id number] ROOM/BED: [address] : 86 AGE: 34 SEX: M ATTEND: Hieu Hughes MD ADM AUTHOR: Paresh Daigle NP * ALL edits or amendments must be made on the [employer]/computer document * Paresh Daigle 11/20/19 0815: History of Present Illness HPI HPI: This is a 34-year-old male with history of hyper tension, diastolic heart failure. Patient presents to [facility] with complaints of shortness of breath. Was noted with hypertensive emergency wi th blood pressure 205/150, started on nicardipine, chest x-ray note d with pulmonary congestion cardiology was consulted. Patient seen in room reports has been compliant with his lisinopril however he did stop his Coreg several months ago secondary to intermittent dizziness with therapy for the past week or 2 has noticed more shortness of breath lower extremity swelling ort hopnea early satiety at least over 15 pounds weight gain. Reports increase his Lasix to 80 twice a day without much improvement in symptoms therefore c mandi to the ER for further evaluation. History - Adult longitudinal Additional medical history: Diastolic dysfunction, hypertension Additional surgical history: Cholecystectomy Additional family history: Mother alive history of diabetes hypertension Father unknown Additional social history: single he works in [employer] he denies any alco hol use or tobacco use Allergies: Coded Allergies: Iodine and Iodide Containing Produc (Severe, HIV ES 11/19/19) shellfish derived (Intermediate, RASH 11/19/19) Review of Systems Constitutional: Denies: fatigue, fever, generalized weakness. Skin: Denies: bruising, contusion, diaphoresis. Allergy/Immun: Denies: anaphylaxis, hives. Eyes: Denies: visual loss/blurred. ENT: Denies: sore throat, throat pain. Respiratory: Reports: COATES (dyspnea on exertion), non producti ve cough, SOB. Cardiovascular: Reports: dyspnea on exertion, edema, orthopnea. Denies: chest pain, palpitations, parox noctural dyspnea. GI: Reports: abdominal pain. Denies: constipation, d iarrhea, dysphagia, GERD, hematemesis, hematochezia, melena, nausea, vomit ing. : Denies: dysuria, hematuria, nocturia, urgency. Musculoskeletal: joint pain. Heme: Denies: bleeding, bruising. Endocrine: Denies: cold intolerance, heat intolerance, poly dipsia, polyphagia, polyuria, weight gain, weight loss. Neuro: Denies: headache, lightheaded. Objective Physical Exam VS/I O: Laboratory Tests: 11/19 11/19 11/19 11/19 11/18 0313 0313 0313 0313 1800 Chemistry Hemoglobin A1c (% HbA1) 6.1 Estim Average Glucose (MG/DL) 128 Lactic Acid (0.4 - 1.9 MMOL/L) 1.0 Phosphorus (2.5 - 4.9 mg/dL) 3.1 Magnesium (1.8 - 2.4 mg/dL) 1.9 Troponin I (0 - 0.045 ng/mL) 0.020 B-Natriuretic Peptide (0 - 100 364.76 H pgram/mL) Lipase (73.0 - 393.0 U/L) 38 L TSH (0.36 - 3.74 uIU/mL) 0.555 Free T4 (0.76 - 1.46 ng/dL) 1.48 H Free T4 Index (1.3 - 5.1 FTI) 4.25 Thyroxine (T4) (4.5 - 13.9 ug/dL) 11.2 T3 Uptake (30.0 - 40.0 %) 38.0 Hematology WBC (4.5 - 12.5 K/mm3) 11.4 RBC (4.0 - 5.8 mill/mm3) 5.19 Hgb (13.0 - 17.5 gram/dL) 14.3 Hct (42.0 - 52.0 %) 44.3 MCV (80 - 98 fL) 85.4 MCH (27.0 - 33.0 picogram) 27.6 MCHC (33.0 - 36.0 gram/dL) 32.3 L RDW (11.6 - 16.2 %) 17.2 H Plt Count (150 - 450 K/mm3) 316 MPV (6.7 - 11.0 fL) 10.5 11/18 11/18 11/18 1800 1800 1735 Chemistry Sodium (128 - 145 mmol/L) 136 Potassium (3.5 - 5.1 mmol/L) 4.6 Chloride (98 - 107 mmol/L) 100.0 Carbon Dioxide (22 - 29 mmol/L) 22.8 Anion Gap (10 - 20 mmol/L) 18 BUN (7 - 22 mg/dL) 32 H Creatinine (0.55 - 1.3 mg/dL) 1.92 H Glomerular Filtr Rate (>=60 mL/min) 49 BUN/Creatinine Ratio (10 - 20) 16.7 Glucose (70 - 110 mg/dL) 97 Calcium (8.0 - 10.5 mg/dL) 8.6 Total Bilirubin (0.2 - 1.2 mg/dL) 1.20 Direct Bilirubin (0.0 - 0.30 mg/dL) 0.70 H AST (10 - 39 U/L) 35 ALT (10 - 69 U/L) 27 Total Alk Phosphatase (50 - 139 U/L) 143 H Troponin I (0.00 - 0.056 ng/mL) 0.06 *H B-Natriuretic Peptide (0 - 100 pg/mL) 978 H Total Protein (6.1 - 7.8 gram/dL) 7.7 Albumin (3.3 - 4.4 g/dL) 3.2 L Globulin (1 - 10 G/DL) 4.5 Albumin/Globulin Ratio (0.75 - 1.50) 0.7 L Coagulation INR (0.8 - 1.2) 1.4 H PTT (Nathan) (25.5 - 34.3 seconds) 25.8 PT Patient/Control Mix (9.0 - 13.0 seconds) 13. 3 H Hematology WBC (4.5 - 12.5 K/mm3) 7.3 RBC (4.0 - 5.8 mill/mm3) 5.12 Hgb (13.0 - 17.5 gram/dL) 13.7 Hct (42.0 - 52.0 %) 43.6 MCV (80 - 98 fL) 85.2 MCH (27.0 - 33.0 picogram) 26.8 L MCHC (33.0 - 36.0 gram/dL) 31.4 L RDW (11.6 - 16.2 %) 16.9 H RDW Std Deviation (37.0 - 51.0 fL) 53.1 H Plt Count (150 - 450 K/mm3) 301 MPV (6.7 - 11.0 fL) 10.2 Serology Nasal/Oral COVID-19 PCR Negative 11/18 1637 Toxicology Urine Opiates Screen (NEGATIVE) POSITIVE H Urine Methadone Screen (<300 ng/mL) NEGATIVE Urine Barbiturates (NEGATIVE) NEGATIVE Ur Phencyclidine Scrn (NEGATIVE) NEGATIVE Ur Amphetamines Screen (NEGATIVE) NEGATIVE MDMA (NEGATIVE) NEGATIVE U Benzodiazepines Scrn (NEGATIVE) NEGATIVE Urine Cocaine Screen (NEGATIVE) NEGATIVE Urine Cannabinoids (<50 ng/mL) NEGATIVE Microbiology: Date/Time Procedure - Status Source Growth 11/18 1800 Blood Culture - RECD BLOOD 11/18 1745 Blood Culture - RECD BLOOD Recent Impressions: RADIOLOGY - XR CHEST 1 V 11/18 1732 Report Impression - Status: SIGNED Entered: 11/19/2019 1811 IMPRESSION: Congestive heart failure with pulmon kenan edema and probable small bilateral pleural effusions Impression By: Shirlene McnultyD. CAT SCAN - CT HEAD/BRAIN W/O CONT 11/18 2124 Report Impression - Status: SIGNED Entered: 11/19/20192139 IMPRESSION: Unremarkable brain. Impression By: Evelyne Chino M.D. RADIOLOGY - XR CHEST 1 V 11/19 06 Report Impression - Status: SIGNED Entered: 11/20/2019 0716 IMPRESSION: No congestion or infiltrates. Small right effusi on and dependent changes. Moderate cardiomegaly. Correlate for cardiomyopa thy or pericardial effusion. Impression By: [email or web address] Keyon Doyle M.D. Active Meds + DC'd Last 24 Hrs Atorvastatin Calcium 20 MG BEDTIME PO Heparin Sodium 5,000 UNITS Q8HR SUBQ Docusate Sodium 100 MG BID PO Furosemide 40 MG Q12HR IV (DCr) Furosemide 80 MG Q12HR IV (UNV) Carvedilol 25 MG BID MEALS PO Morphine Sulfate 2 MG ONCE ONE IV (DC) Morphine Sulfate 2 MG ONCE ONE IV (DC) Hydralazine HCl 10 MG Q3H PRN PRN IV Ondansetron HCl 4 MG Q4H PRN PRN IV Acetaminophen 650 MG Q6H PRN PRN PO Nicardipine HCl 25 MG TITRATE IV Sodium Chloride 250 ML Morphine Sulfate 4 MG ONCE ONE IV (DC) Tramadol HCl 50 MG ONCE ONE PO (DC) Mupirocin 1 APPLIC BID NASAL Acetaminophen 650 MG Q4H PRN PRN PO (DC) Ondansetron HCl 4 MG Q6H PRN PRN IV Nitroglycerin/Dextrose 250 ML X1ED STA IV (CAN) Nitroglycerin/Dextrose 250 ML X1ED STA IV (DC) Acetaminophen 500 MG X1ED STA PO (DC) Aspirin 325 MG X1ED STA PO (DC) Furosemide 40 MG X1ED STA IV (DC) Nitroglycerin 1 GM X1ED STA TRANSDERM (DC) Nitroglycerin 0.4 MG Q5M PRN PRN SL Vital Signs: Date Time Temp Pulse Resp B/P B/P Pulse O2 O2 Flow FiO2 Mean Ox Delivery Rate 11/19 0400 99.0 11/19 0200 98.0 11/19 0200 Nasal 2.524637 cannula 11/19 0105 93 18 176/99 124 99 Nasal 4.647458 cannula 11/19 0002 98.7 91 18 206/140 162 98 Nasal 3.00 0000 cannula 11/18 2308 97 18 209/122 151 94 Nasal 2.892162 cannula 11/18 2235 85 18 205/120 148 94 Nasal 2.870831 cannula 11/18 2219 99.3 89 18 196/116 142 94 Nasal 2.00 0000 cannula 11/18 2204 93 18 196/128 150 95 Nasal 2.925477 cannula 11/18 2149 92 18 208/129 155 98 Nasal 2.301034 cannula 11/187 85 18 203/121 148 96 Nasal 2.868430 cannula 11/18 2046 89 18 212/109 143 95 Room air 2.0000 00 11/18 2028 91 16 194/107 136 95 Nasal 2.508546 cannula 11/18 2012 94 16 224/138 166 97 Nasal 2.655736 cannula 11/18 1958 94 16 246/138 174 95 Nasal 2.304363 cannula 11/18 195 96 16 215/414 347 94 Nasal 2.018389 cannula 11/18 1927 94 16 208/139 162 93 Nasal 2.784740 cannula 11/18 1902 98.7 102 18 220/140 166 93 Nasal 2.0 08229 cannula 11/18 1842 95 18 205/147 166 94 Room air 11/18 1816 93 11/18 1800 98.9 94 17 204/136 158 93 Nasal 2.00 0000 cannula 11/18 1710 Nasal 2.389253 cannula 11/18 1708 99.0 102 18 205/150 168 95 Room air 24 hour I O ending at 0700: 11/19 0700 11/18 1900 Intake Total 450.00 Output Total 2075 650 Balance -1625.00 -650 Intake, IV 450.00 Number Voids 2 1 Output, Urine 2075 650 Patient 113.636 kg Weight Weight Stated/Reported Measurement Method Patient Weight Weight (lb): Weight (oz): Weight (kg): 113.636 General appearance: alert, awake, oriented Head/Eyes: atraumatic, EOMI ENT: moist mucosal membranes Neck: JVD present, full range of motion, no brui t/NL carotids Cardiovascular: CV assessment: regular rate and rhythm, normal heart sounds Respiratory: crackles, shortness of breath Abdomen: soft, non-tender, normal bowel sounds, no distention Genitourinary: no zuñiga Upper extremity: UE assessment: normal capillary refill, normal temperature Lower extremity: LE assessment: edema, normal temperature Musculoskeletal: full range of motion 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, oriented X 3, normal speech, n o motor deficits Skin: dry, intact Diagnosis, Assessment Plan Free Text DxA P Notes Free Text DxA P Notes: Impression: -Hypertensive emergency -Acute on chronic diastolic heart failure -Elevated troponin secondary to hypertensive robina rgency/type II -JENNIFER Plan: -Patient presents with hypertensive urge ncy with shortness of breath orthopnea lower extremity edema -We will restart oral antihypertensives -We will increase Lasix to 80 mg twice daily -Echo to evaluate heart function -Continue Cardene drip wean as BP tolerates -We will continue to follow -Labs in a.m. Raheem Yu 11/20/19 1045: Diagnosis, Assessment Plan Free Text DxA P Notes Free Text DxA P Notes: Seen and evaluated Agree with above note Patient with severe hypertension since age 14 se en by several physicians, he does not recall if he had work-up for secondary hypertension We will adjust his hypertensive medication is st rongly advised to see a specialist and hypertension it is our customer in our practice to send him to a edger operator or hypertensive specialist who are interested in hypertension management in young people Electronically Signed by Paresh Daigle NP on at 0938 at 1046 RPT #:[id number] END OF REPORT 2019-11-20 08:15:00-00:00 [facility] ([facility]) Cardiology Consultation REPORT#:[id number] REPORT STATUS: Signed DATE:11/20/19 TIME: 814 PATIENT: JORGE GOINS UNIT #: [id number] ROOM/BED: [address] : 86 AGE: 34 SEX: M ATTEND: Codie Hughes MD ADM AUTHOR: Paresh Daigle NP * ALL edits or amendments must be made on the el [employer]/computer document * Paresh Daigle 11/20/19 0815: History of Present Illness HPI HPI: This is a 34-year-old male with history of hyper tension, diastolic heart failure. Patient presents to [facility] with complaints of shortness of breath. Was noted with hypertensive emergency wi th blood pressure 205/150, started on nicardipine, chest x-ray note d with pulmonary congestion cardiology was consulted. Patient seen in room reports has been compliant with his lisinopril however he did stop his Coreg several months ago secondary to intermittent dizziness with therapy for the past week or 2 has noticed more shortness of breath lower extremity swelling ort hopnea early satiety at least over 15 pounds weight gain. Reports increase his Lasix to 80 twice a day without much improvement in symptoms therefore c mandi to the ER for further evaluation. 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 Skin: Denies: bruising, contusion, diaphoresis. Allergy/Immun: Denies: anaphylaxis, hives. Eyes: Denies: visual loss/blurred. ENT: Denies: sore throat, throat pain. Respiratory: Reports: COATES (dyspnea on exertion), non producti ve cough, SOB. Cardiovascular: Reports: dyspnea on exertion, edema, orthopnea. Denies: chest pain, palpitations, parox noctural dyspnea. GI: Reports: abdominal pain. Denies: constipation, d iarrhea, dysphagia, GERD, hematemesis, hematochezia, melena, nausea, vomit ing. : Denies: dysuria, hematuria, nocturia, urgency. Musculoskeletal: joint pain. Heme: Denies: bleeding, bruising. Endocrine: Denies: cold intolerance, heat intolerance, poly dipsia, polyphagia, polyuria, weight gain, weight loss. Neuro: Denies: headache, lightheaded. Objective Physical Exam VS/I O: Laboratory Tests: 11/19 11/19 11/19 11/19 11/18 0313 0313 0313 0313 1800 Chemistry Hemoglobin A1c (% HbA1) 6.1 Estim Average Glucose (MG/DL) 128 Lactic Acid (0.4 - 1.9 MMOL/L) 1.0 Phosphorus (2.5 - 4.9 mg/dL) 3.1 Magnesium (1.8 - 2.4 mg/dL) 1.9 Troponin I (0 - 0.045 ng/mL) 0.020 B-Natriuretic Peptide (0 - 100 364.76 H pgram/mL) Lipase (73.0 - 393.0 U/L) 38 L TSH (0.36 - 3.74 uIU/mL) 0.555 Free T4 (0.76 - 1.46 ng/dL) 1.48 H Free T4 Index (1.3 - 5.1 FTI) 4.25 Thyroxine (T4) (4.5 - 13.9 ug/dL) 11.2 T3 Uptake (30.0 - 40.0 %) 38.0 Hematology WBC (4.5 - 12.5 K/mm3) 11.4 RBC (4.0 - 5.8 mill/mm3) 5.19 Hgb (13.0 - 17.5 gram/dL) 14.3 Hct (42.0 - 52.0 %) 44.3 MCV (80 - 98 fL) 85.4 MCH (27.0 - 33.0 picogram) 27.6 MCHC (33.0 - 36.0 gram/dL) 32.3 L RDW (11.6 - 16.2 %) 17.2 H Plt Count (150 - 450 K/mm3) 316 MPV (6.7 - 11.0 fL) 10.5 11/18 11/18 11/18 1800 1800 1735 Chemistry Sodium (128 - 145 mmol/L) 136 Potassium (3.5 - 5.1 mmol/L) 4.6 Chloride (98 - 107 mmol/L) 100.0 Carbon Dioxide (22 - 29 mmol/L) 22.8 Anion Gap (10 - 20 mmol/L) 18 BUN (7 - 22 mg/dL) 32 H Creatinine (0.55 - 1.3 mg/dL) 1.92 H Glomerular Filtr Rate (>=60 mL/min) 49 BUN/Creatinine Ratio (10 - 20) 16.7 Glucose (70 - 110 mg/dL) 97 Calcium (8.0 - 10.5 mg/dL) 8.6 Total Bilirubin (0.2 - 1.2 mg/dL) 1.20 Direct Bilirubin (0.0 - 0.30 mg/dL) 0.70 H AST (10 - 39 U/L) 35 ALT (10 - 69 U/L) 27 Total Alk Phosphatase (50 - 139 U/L) 143 H Troponin I (0.00 - 0.056 ng/mL) 0.06 *H B-Natriuretic Peptide (0 - 100 pg/mL) 978 H Total Protein (6.1 - 7.8 gram/dL) 7.7 Albumin (3.3 - 4.4 g/dL) 3.2 L Globulin (1 - 10 G/DL) 4.5 Albumin/Globulin Ratio (0.75 - 1.50) 0.7 L Coagulation INR (0.8 - 1.2) 1.4 H PTT (Nathan) (25.5 - 34.3 seconds) 25.8 PT Patient/Control Mix (9.0 - 13.0 seconds) 13. 3 H Hematology WBC (4.5 - 12.5 K/mm3) 7.3 RBC (4.0 - 5.8 mill/mm3) 5.12 Hgb (13.0 - 17.5 gram/dL) 13.7 Hct (42.0 - 52.0 %) 43.6 MCV (80 - 98 fL) 85.2 MCH (27.0 - 33.0 picogram) 26.8 L MCHC (33.0 - 36.0 gram/dL) 31.4 L RDW (11.6 - 16.2 %) 16.9 H RDW Std Deviation (37.0 - 51.0 fL) 53.1 H Plt Count (150 - 450 K/mm3) 301 MPV (6.7 - 11.0 fL) 10.2 Serology Nasal/Oral COVID-19 PCR Negative 11/18 1637 Toxicology Urine Opiates Screen (NEGATIVE) POSITIVE H Urine Methadone Screen (<300 ng/mL) NEGATIVE Urine Barbiturates (NEGATIVE) NEGATIVE Ur Phencyclidine Scrn (NEGATIVE) NEGATIVE Ur Amphetamines Screen (NEGATIVE) NEGATIVE MDMA (NEGATIVE) NEGATIVE U Benzodiazepines Scrn (NEGATIVE) NEGATIVE Urine Cocaine Screen (NEGATIVE) NEGATIVE Urine Cannabinoids (<50 ng/mL) NEGATIVE Microbiology: Date/Time Procedure - Status Source Growth 11/18 1800 Blood Culture - RECD BLOOD 11/18 1745 Blood Culture - RECD BLOOD Recent Impressions: RADIOLOGY - XR CHEST 1 V 11/18 1732 Report Impression - Status: SIGNED Entered: 11/19/2019 1811 IMPRESSION: Congestive heart failure with pulmon kenan edema and probable small bilateral pleural effusions Impression By: Evelyne Chino M.D. CAT SCAN - CT HEAD/BRAIN W/O CONT 11/18 2124 Report Impression - Status: SIGNED Entered: 11/19/2019 2140 IMPRESSION: Unremarkable brain. Impression By: Evelyne Chino M.D. RADIOLOGY - XR CHEST 1 V 11/19 0600 Report Impression - Status: SIGNED Entered: 11/20/2019 0716 IMPRESSION: No congestion or infiltrates. Small right effusi on and dependent changes. Moderate cardiomegaly. Correlate for cardiomyopa thy or pericardial effusion. Impression By: [email or web address] - Thony Doyle M.D. Active Meds + DC'd Last 24 Hrs Atorvastatin Calcium 20 MG BEDTIME PO Heparin Sodium 5,000 UNITS Q8HR SUBQ Docusate Sodium 100 MG BID PO Furosemide 40 MG Q12HR IV (DCr) Furosemide 80 MG Q12HR IV (UNV) Carvedilol 25 MG BID MEALS PO Morphine Sulfate 2 MG ONCE ONE IV (DC) Morphine Sulfate 2 MG ONCE ONE IV (DC) Hydralazine HCl 10 MG Q3H PRN PRN IV Ondansetron HCl 4 MG Q4H PRN PRN IV Acetaminophen 650 MG Q6H PRN PRN PO Nicardipine HCl 25 MG TITRATE IV Sodium Chloride 250 ML Morphine Sulfate 4 MG ONCE ONE IV (DC) Tramadol HCl 50 MG ONCE ONE PO (DC) Mupirocin 1 APPLIC BID NASAL Acetaminophen 650 MG Q4H PRN PRN PO (DC) Ondansetron HCl 4 MG Q6H PRN PRN IV Nitroglycerin/Dextrose 250 ML X1ED STA IV (CAN) Nitroglycerin/Dextrose 250 ML X1ED STA IV (DC) Acetaminophen 500 MG X1ED STA PO (DC) Aspirin 325 MG X1ED STA PO (DC) Furosemide 40 MG X1ED STA IV (DC) Nitroglycerin 1 GM X1ED STA TRANSDERM (DC) Nitroglycerin 0.4 MG Q5M PRN PRN SL Vital Signs: Date Time Temp Pulse Resp B/P B/P Pulse O2 O2 F low FiO2 Mean Ox Delivery Rate 11/19 0400 99.0 11/19 0200 98.0 11/19 0200 Nasal 2.185815 cannula 11/19 0105 93 18 176/99 124 99 Nasal 4.739679 cannula 11/19 0002 98.7 91 18 206/140 162 98 Nasal 3.00 0000 cannula 11/18 2308 97 18 209/122 151 94 Nasal 2.828985 cannula 11/18 2235 85 18 205/120 148 94 Nasal 2.172491 cannula 11/18 2219 99.3 89 18 196/116 142 94 Nasal 2.00 0000 cannula 11/184 93 18 196/128 150 95 Nasal 2.735245 cannula 11/189 92 18 208/129 155 98 Nasal 2.744178 cannula 11/187 85 18 203/121 148 96 Nasal 2.262407 cannula 11/18 2045 89 18 212/109 143 95 Room air 2.0000 00 11/18 2028 91 16 194/107 136 95 Nasal 2.400570 cannula 11/18 2012 94 16 224/138 166 97 Nasal 2.992435 cannula 11/18 1958 94 16 246/138 174 95 Nasal 2.707025 cannula 11/18 195 96 16 215/414 347 94 Nasal 2.538605 cannula 11/18 1927 94 16 208/139 162 93 Nasal 2.424663 cannula 11/18 1902 98.7 102 18 220/140 166 93 Nasal 2.0 85517 cannula 11/18 1842 95 18 205/147 166 94 Room air 11/18 1816 93 11/18 1800 98.9 94 17 204/136 158 93 Nasal 2.00 0000 cannula 11/18 1710 Nasal 2.494625 cannula 11/18 1708 99.0 102 18 205/150 168 95 Room air 24 hour I O ending at 0700: 11/19 0700 11/18 1900 Intake Total 450.00 Output Total 2075 650 Balance -1625.00 -650 Intake, IV 450.00 Number Voids 2 1 Output, Urine 2075 650 Patient 113.636 kg Weight Weight Stated/Reported Measurement Method Patient Weight Weight (lb): Weight (oz): Weight (kg): 113.636 General appearance: alert, awake, oriented Head/Eyes: atraumatic, EOMI ENT: moist mucosal membranes Neck: JVD present, full range of motion, no brui t/NL carotids Cardiovascular: CV assessment: regular rate and rhythm, normal heart sounds Respiratory: crackles, shortness of breath Abdomen: soft, non-tender, normal bowel sounds, no distention Genitourinary: no zuñiga Upper extremity: UE assessment: normal capillary refill, normal temperature Lower extremity: LE assessment: edema, normal temperature Musculoskeletal: full range of motion 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, oriented X 3, normal speech, n o motor deficits Skin: dry, intact Diagnosis, Assessment Plan Free Text DxA P Notes Free Text DxA P Notes: Impression: -Hypertensive emergency -Acute on chronic diastolic heart failure -Elevated troponin secondary to hypertensive robina rgency/type II -JENNIFER Plan: -Patient presents with hypertensive urge ncy with shortness of breath orthopnea lower extremity edema -We will restart oral antihypertensives -We will increase Lasix to 80 mg twice daily -Echo to evaluate heart function -Continue Cardene drip wean as BP tolerates -We will continue to follow -Labs in a.Raheem Antoine 11/20/19 1045: Diagnosis, Assessment Plan Free Text DxA P Notes Free Text DxA P Notes: Seen and evaluated Agree with above note Patient with severe hypertension since age 14 se en by several physicians, he does not recall if he had work-up for secondary hypertension We will adjust his hypertensive medication is st rongly advised to see a specialist and hypertension it is our customer in our practice to send him to a edger operator or hypertensive specialist who are interested in hypertension management in young people Electronically Signed by Paresh Daigle NP on at 0938 at 1046 Electronically Signed by Johana Yu MD on 0 11/20/19 at 1147 [facility] #:[id number] END OF REPORT 2019-11-20 04:49:00-00:00 [id number] [facility] PATIENT NAME: JORGE GOINS ADMIT DATE: 11/18 ACCOUNT NO: [id number] ROOM NO: 301 AGE: 34 REPORT TYPE: HISTORY AND PHYSICAL SEX: M DATE OF : [birth year] ADMITTING PHYSICIAN:Sebastián Davis II, MD ATTENDING PHYSICIAN:Sebastián Davis II, MD ADMISSION DATE: 11/19/2019 PRIMARY CARE PHYSICIAN: Unknown who his doctor i s. CHIEF COMPLAINT: "Pain in my stomach and my neck hurts." HISTORY OF PRESENT ILLNESS: A 34-year-old man wi th past medical history of hypertension and congestive heart failure, unkno wn type, as well as morbid obesity, coming into the ER with complaints of a bdominal pain and his neck hurting. He also reports having some angelica rtness of breath for a week with a dry cough. He has been taking his Lasix and lisinopr il as prescribed, but states his blood pressure has been running high. He den ies any chest pain, nausea, vomiting, or any other sympt oms. Upon arrival to the ER, he was afebrile, blood pressure 205/150 with a heart rate of 102, satti ng 95% on room air. While he was in the ER, his blood pressure increased to 2 46/138. He received nitroglycerin tablets, nitro paste, Lasix IV, as pirin, Tylenol, nitroglycerin infusion and his blood pressure did not decrease much and he developed a headache. He was admitted to ICU for further man agement of malignant hypertension and started on a Cardene infusion i nstead of the nitroglycerin infusion. He has been admitted for further manag ement. PAST MEDICAL HISTORY: Hypertension; congestive h eart failure, unknown type, obesity. HOME MEDICATIONS: Lisinopril 40 mg daily, Lasix 40 mg twice a day. ALLERGIES: SHELLFISH PRODUCTS. PAST SURGICAL HISTORY: Cholecystectomy. SOCIAL HISTORY: He does not smoke or drink. Does not use any drugs. Lives at home. FAMILY HISTORY: Significant for hypertension. REVIEW OF SYSTEMS: Twelve-point review of system s has been performed and is negative other than for the pain in his stomach headache and some neck discomfort, which has improved. PHYSICAL EXAMINATION: VITAL SIGNS: Current temperature 98.7, blood pre ssure 176/99, heart rate 93, satting 99% on 2 L nasal cannula. GENERAL: He is awake, alert, oriented, no appare nt distress. PATIENT NAME: JORGE GOINS [id number] HEENT: Head is atraumatic. Extraocular muscles a re intact. Normal external nares. Moist mucous membranes. NECK: Supple. HEART: Regular rate and rhythm without any murmu rs or extra heart sounds. LUNGS: Clear to auscultation bilaterally. Breath ing is unlabored. ABDOMEN: Obese, soft, nontender, nondistended. B owel sounds are present. SKIN: Warm and dry to touch without any obvious lesions or breakdown. MUSCULOSKELETAL: He is able to move his extremities without difficulty. He has good muscle tone. NEUROLOGIC: Grossly nonfocal. Speech is clear. F ceci is symmetrical. HEMATOLOGIC AND LYMPHATIC: No active bleeding or bruising. He has 3+ lower extremity pitting edema bilaterally. PSYCHIATRIC: Appropriate mood and affect. LABORATORY DATA: White count 7.3, hemoglobin 13. 7, and platelets 301. Sodium 136, potassium 4.6, chloride 100, bicarbonate 22 , BUN 32, creatinine 1.9, and glucose 97. Lactic acid is 1. Calcium 8.6, total bilirubin 1.2, AST 35, ALT 27, alkaline phosphatase 143. Initial tr oponin 0.06, repeated 0.02. Albumin is 3.2. BNP 978. TSH 0.5. Free T4 1.4. INR is 1.4. Urine drug screen is positive for opiates. IMAGING: Chest x-ray shows congestive heart fail ure with pulmonary edema and bilateral pleural effusions. Brain CT is unremar kable. IMPRESSION: 1. Malignant hypertension. 2. Congestive heart failure exacerbation, unknow n which type. 3. Obesity, BMI 35. 4. Hyperlipidemia. PLAN: 1. The patient is admitted to ICU for further ma nagement. He is on a Cardene infusion and bringing his blood pressure down 20 % in the first 24 hours. We will resume his Coreg. We will hold off on the l isinopril due to his renal function. He will also benefit from receiving La six. Check an echocardiogram and Cardiology has been cons ulted for further assistance. His troponin is trace elevated secondary to increa sed cardiac demand, he does not have a heart attack, this is more of type 2 myocardial infarction sec ondary to increased cardiac demand. 2. We will monitor renal function as he appears to have acute renal injury. This may be secondary to the malignant hypertens ion. 3. Check a lipid profile and resume statin. 4. The patient needs to lose weight. Further recommendations based on clinical course . The patient is full code. Dictated By: Anette Hughes MD WT: HP:GONZALO/GALLO/NTS PATIENT NAME: JORGE GOINS [id number] Conf#: [id number]/DID#: [id number] Authenticated by Anette Hughes MD On 11/20/2019 08:09:46 PM Electronically Signed by Anette Hughes MD on 0 11/20/19 at 2010 PATIENT NAME: JORGE GOINS [id number] 04:42:00-00:00 [facility]) Clinical Note REPORT#:[id number] REPORT STATUS: Signed DATE:11/20/19 TIME: 441 PATIENT: JORGE GOINS UNIT #: [id number] ROOM/BED: [address] : 86 AGE: 34 SEX: M ATTEND: Codie Hughes MD ADM AUTHOR: Anette Hughes MD * ALL edits or amendments must be made on the [employer] document * Clinical Note Note: [id number] H P 34 yo man with 1. malignant HTN 2. CHF exacerbation, unknown type 3. type II HI secondary to increased cardiac dem and 4. HLD 5. obesity BMI 35 6. JENNIFER vs CKD 3 full code Electronically Signed by Anette Hughes MD on at 0455 RPT #:[id number] END OF REPORT 2019-11-20 00:50:00-00:00 [facility] ([facility]) Critical Care Consult Note REPORT#:[id number] REPORT STATUS: Signed DATE:11/20/19 TIME: 005 PATIENT: JORGE GOINS UNIT #: [id number] ROOM/BED: [facility] : 86 AGE: 34 SEX: M ATTEND: Codie Hughes MD ADM AUTHOR: Yossi Mackenzie * ALL edits or amendments must be made on the [employer]/computer document * History of Present Illness HPI Requesting clinician: Dr. Cardoso Reason for consult: HTN Emergency and CHF exacerbation. Chief complaint: SOB HPI: Patient is a 34-year-old mal e with prior medical history significant for CHF and malignant hypertension. Patient [facility] to [facility] department with complaints of shortness of breath x1 week. Patient reports bad headache and back pain but n o complaints of fevers, chills, nausea or vomiting. Patient is poorly compliant with his medication regimen at home. Patient's COVID screen was negative chest x-ray sh owed cardiomegaly and pulmonary edema. Patient with initial blood pressure of 220/140 t hat was poorly responsive to initial measures. Patient was placed on nitro dr faby and transferred to [facility] where he was changed to Car dene and given IV Lasix. Head CT was negative for any acute bleed or i nfarcts, patient is alert and oriented x3. Patient was subsequently transferred to the ICU for continued care. History - Adult longitudinal Past medical history: Reports: Congestive heart failure, Hypertension. Additional medical history: Hypertension, CHF Additional surgical history: Cholecystectomy Family history: Reports: Diabetes, Hypertension. Alcohol use: Denies EtOH use Drug use: Denies recreational drugs Smoking status for patients 13 years old or olde r: Never Smoker Other social history: Local resident Medications: Home Medications: Medication Dose/Rte/Freq Days Qty Entered Last Max Daily Dose Reviewed ALBUTEROL 2 PUFF INH 05/08/19 (PROAIR HFA 90 MCG/ACT RTQ6H PRN PRN SOB 1946 8.5 GM) Strength: 90 MCG INHALER FUROSEMIDE (LASIX) 40 MG PO BID 60 05/10/19 Strength: 20 MG TAB 1127 ASPIRIN EC (ECOTRIN) 81 MG PO DAILY 30 30 05/10 Strength: 81 MG TAB.EC 1128 ATORVASTATIN (LIPITOR) 20 MG PO BEDTIME 30 30 1 07/10/18 Strength: 20 MG TAB 1128 NIFEdipine XL 30 MG PO Q12HR 30 60 05/10/19 (PROCARDIA XL) 1224 Strength: 30 MG TAB.SA CARVEDILOL (COREG) 25 MG PO BID MEALS 30 60 Strength: 25 MG TAB 1224 ACETAMINOPHEN/CODEINE 1 TAB PO 7 20 05/10/19 (TYLENOL WITH CODEINE Q6H PRN PRN PAIN 1224 #4 300/60 MG) Strength: 300 MG-60 MG TAB POTASSIUM CHLORIDE ER 10 MEQ PO DAILY 30 (KLOR-CON 10) 1224 Strength: 10 MEQ TAB. Current Hospital Medications: Cardiovascular Drugs Sig/Ronan Start time Last Medication Dose Route Stop Time Status Admin Atorvastatin Calcium 20 MG BEDTIME 11/19 2100 A C (LIPITOR 20MG TAB) PO 12/19 2058 Carvedilol 25 MG BID MEALS 11/19 0800 AC (COREG 25MG TAB) PO 12/19 0759 Hydralazine HCl 10 MG Q3H PRN PRN 11/19 0045 AC 11/19 (hydrALAZINE HCL) IV 12/19 004 0104 Nicardipine HCl 25 MG TITRATE 11/18 234 AC (CARDENE) IV 12/18 234 0031 Sodium Chloride 250 ML (SODIUM CHLORIDE) Nitroglycerin/ 250 ML X1ED STA 11/18 1915 CAN Dextrose IV 11/29 0514 (NITROGLYCERIN 50MG/ D5 250ML) Nitroglycerin/ 250 ML X1ED STA 11/18 1911 DC Dextrose IV 11/29 0510 1927 (NITROGLYCERIN 50MG/ D5 250ML) Nitroglycerin 1 GM X1ED STA 11/18 1732 DC 11/18 (NITRO-BID) TRANSDERM 11/18 173 1800 Nitroglycerin 0.4 MG Q5M PRN PRN 11/18 1730 AC 11/18 (NITROQUICK) SL 1800 Central Nervous System Agents Sig/Ronan Start time Last Medication Dose Route Stop Time Status Admin Morphine Sulfate 2 MG ONCE ONE 11/19 0100 DC 0 11/19 (morphine SULFATE) IV 11/19 010 0104 Acetaminophen 650 MG Q6H PRN PRN 11/18 2345 AC 11/19 (TYLENOL) PO 12/18 2338 0109 Morphine Sulfate 4 MG ONCE ONE 11/18 2230 DC (morphine SULFATE) IV 11/18 2230 2224 Tramadol HCl 50 MG ONCE ONE 11/18 2199 DC 11/18 (ULTRAM) PO 11/18 2200 2158 Acetaminophen 650 MG Q4H PRN PRN 11/18 1945 DC 11/18 (TYLENOL) PO 11/19 0741 2014 Acetaminophen 500 MG X1ED STA 11/18 1852 DC (TYLENOL EXTRA PO 11/18 1853 1901 STRENGTH) Aspirin 325 MG X1ED STA 11/18 1830 DC 11/18 (ASPIRIN) PO 11/18 1831 1849 Electrolytic, Caloric, And Camila Sig/Ronan Start time Last Medication Dose Route Stop Time Status Admin Furosemide 40 MG Q12HR 11/19 0900 AC (FUROSEMIDE) IV 12/19 0859 Furosemide 40 MG X1ED STA 11/18 1756 DC 11/18 (FUROSEMIDE) IV 11/18 175 1759 Gastrointestinal Drugs Sig/Ronan Start time Last Medication Dose Route Stop Time Status Admin Ondansetron HCl 4 MG Q4H PRN PRN 11/19 0045 AC (ondansetron HCL) IV 12/19 0044 Ondansetron HCl 4 MG Q6H PRN PRN 11/18 1945 AC 11/19 (ondansetron HCL) IV 11/22 0741 0009 Skin And Mucous Membrane Agent Sig/Ronan Start time Last Medication Dose Route Stop Time Status Admin Mupirocin 1 APPLIC BID 11/18 2100 AC (BACTROBAN NASAL - NASAL 11/23 0901 ADULT ICU) Allergies: Coded Allergies: Iodine and Iodide Containing Produc (Severe, HIV ES 11/19/19) shellfish derived (Intermediate, RASH 11/19/19) Review of Systems Musculoskeletal: Other musculoskeletal: Reports: lumbar pain, thoracic pain. Neuro: Reports: headache. Denies: confusion, focal weak ness, gait problem. All systems rev neg: except as marked Objective Physical Exam: Medications: Active Meds + DC'd Last 24 Hrs Atorvastatin Calcium 20 MG BEDTIME PO Carvedilol 25 MG BID MEALS PO Morphine Sulfate 2 MG ONCE ONE IV Hydralazine HCl 10 MG Q3H PRN PRN IV Ondansetron HCl 4 MG Q4H PRN PRN IV Acetaminophen 650 MG Q6H PRN PRN PO Nicardipine HCl 25 MG TITRATE IV Sodium Chloride 250 ML Morphine Sulfate 4 MG ONCE ONE IV (DC) Tramadol HCl 50 MG ONCE ONE PO (DC) Mupirocin 1 APPLIC BID NASAL Acetaminophen 650 MG Q4H PRN PRN PO (DC) Ondansetron HCl 4 MG Q6H PRN PRN IV Nitroglycerin/Dextrose 250 ML X1ED STA IV (CAN) Nitroglycerin/Dextrose 250 ML X1ED STA IV (DC) Acetaminophen 500 MG X1ED STA PO (DC) Aspirin 325 MG X1ED STA PO (DC) Furosemide 40 MG X1ED STA IV (DC) Nitroglycerin 1 GM X1ED STA TRANSDERM (DC) Nitroglycerin 0.4 MG Q5M PRN PRN SL General appearance: alert, awake, oriented Head/Eyes: atraumatic, normocephalic Neck: non-tender, no bruit/NL carotids, no JVD Cardiovascular: murmur, normal heart sounds, nor mal S1 S2 Respiratory/Chest: crackles, aerating well, suzanne r to auscultation, symmetric expansion Abdomen: soft, non-tender, no guarding 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, oriented X 3, CNII-XII intact Skin: dry, intact Results: Findings/Data: Laboratory Tests 11/19/19 1800: [Embedded Image Not Available] Laboratory Tests 11/18 11/18 11/18 1800 1800 1800 Chemistry Sodium (128 - 145 mmol/L) 136 Potassium (3.5 - 5.1 mmol/L) 4.6 Chloride (98 - 107 mmol/L) 100.0 Carbon Dioxide (22 - 29 mmol/L) 22.8 Anion Gap (10 - 20 mmol/L) 18 BUN (7 - 22 mg/dL) 32 H Creatinine (0.55 - 1.3 mg/dL) 1.92 H Glomerular Filtr Rate (>=60 mL/min) 49 BUN/Creatinine Ratio (10 - 20) 16.7 Glucose (70 - 110 mg/dL) 97 Lactic Acid (0.4 - 1.9 MMOL/L) 1.0 Calcium (8.0 - 10.5 mg/dL) 8.6 Total Bilirubin (0.2 - 1.2 mg/dL) 1.20 Direct Bilirubin (0.0 - 0.30 mg/dL) 0.70 H AST (10 - 39 U/L) 35 ALT (10 - 69 U/L) 27 Total Alk Phosphatase (50 - 139 U/L) 143 H Troponin I (0.00 - 0.056 ng/mL) 0.06 *H B-Natriuretic Peptide (0 - 100 pg/mL) 978 H Total Protein (6.1 - 7.8 gram/dL) 7.7 Albumin (3.3 - 4.4 g/dL) 3.2 L Globulin (1 - 10 G/DL) 4.5 Albumin/Globulin Ratio (0.75 - 1.50) 0.7 L Laboratory Tests 11/18 1800 Coagulation INR (0.8 - 1.2) 1.4 H PTT ([place]) (25.5 - 34.3 seconds) 25.8 PT Patient/Control Mix (9.0 - 13.0 seconds) 13. 3 H Laboratory Tests 11/18 1800 Hematology WBC (4.5 - 12.5 K/mm3) 7.3 RBC (4.0 - 5.8 mill/mm3) 5.12 Hgb (13.0 - 17.5 gram/dL) 13.7 Hct (42.0 - 52.0 %) 43.6 MCV (80 - 98 fL) 85.2 MCH (27.0 - 33.0 picogram) 26.8 L MCHC (33.0 - 36.0 gram/dL) 31.4 L RDW (11.6 - 16.2 %) 16.9 H RDW Std Deviation (37.0 - 51.0 fL) 53.1 H Plt Count (150 - 450 K/mm3) 301 MPV (6.7 - 11.0 fL) 10.2 Laboratory Tests 11/18 1735 Serology Nasal/Oral COVID-19 PCR Negative Laboratory Tests 11/18 1637 Toxicology Urine Opiates Screen (NEGATIVE) POSITIVE H Urine Methadone Screen (<300 ng/mL) NEGATIVE Urine Barbiturates (NEGATIVE) NEGATIVE Ur Phencyclidine Scrn (NEGATIVE) NEGATIVE Ur Amphetamines Screen (NEGATIVE) NEGATIVE MDMA (NEGATIVE) NEGATIVE U Benzodiazepines Scrn (NEGATIVE) NEGATIVE Urine Cocaine Screen (NEGATIVE) NEGATIVE Urine Cannabinoids (<50 ng/mL) NEGATIVE Microbiology: 11/18 1723 BLOOD: Blood Culture - ORD 11/18 1723 BLOOD: Blood Culture - ORD Radiology data: Recent Impressions: RADIOLOGY - XR CHEST 1 V 11/18 1732 Report Impression - Status: SIGNED Entered: 11/19/2019 1811 IMPRESSION: Congestive heart failure with pulmon kenan edema and probable small bilateral pleural effusions Impression By: Evelyne Chino M.D. CAT SCAN - CT HEAD/BRAIN W/O CONT 11/18 2124 Report Impression - Status: SIGNED Entered: 11/19/2019 214 IMPRESSION: Unremarkable brain. Impression By: Shirlene McnultyD. Results: labs reviewed, current med profile rev' d Diagnosis, Assessment Plan Diagnosis, Assessment Plan Problem List/A P: 1. Hypertensive emergency 2. Pulmonary edema 3. Elevated troponin 4. CHF exacerbation Free Text A P: History of Present Illness: Patient is a 34-year-old mal e with prior medical history significant for CHF and malignant hypertension. Patient presented to a [facility] emergency department with complaints of shortness of breath x1 week. Patient reports bad headache and back pain but n o complaints of fevers, chills, nausea or vomiting. Patient is poorly compliant with his medication regimen at home. Patient's COVID screen was negative chest x-ray sh owed cardiomegaly and pulmonary edema. Patient with initial blood pressure of 220/140 t hat was poorly responsive to initial measures. Patient was placed on nitro dr ip and transferred to [facility] where he was changed to Car dene and given IV Lasix. Head CT was negative for any acute bleed or i nfarcts, patient is alert and oriented x3. Patient was subsequently transferred to the ICU for continued care. Hospital Course: 11/20/2019: Patient was star kar on Cardene drip with hydralazine PRN, home meds restarted lab work pending. Patient started on I V Lasix will recheck BMP in a.m. Active Problems: Hypertensive emergency: -Worsening headache and back pain head CT negati ve -Started on IV Cardene will wean as tolerated -Restarted home BP medications CHF exacerbation: -BNP elevated over 900, IV Lasix initiated -Chest x-ray showed CHF and pulmonary edema with small bilateral pleural effusions -Echo ordered and pending -Recheck labs in a.m. ICU Patient Safety Checklist: - Diet: Cardiac diet - Bowel regimen: Colace - Glucose q6h: None - Antibiotics: None - Home meds resumed: yes - Ulcer prophylaxis (discontinue if on diet): No ne - DVT prophylaxis: SCD, heparin - Zuñiga: None - Lines: Peripheral IV - Wounds or pressure ulcer present on admission: None - Next of kin: Unknown - Code status: Full code - Disposition: ICU Critical care time: 40 minutes, excluding proced ures, was spent directly evaluating the patient at the bedside, i nterpreting labs and imaging, ordering new labs and medications, an d discussing the case with the ICU multidisciplinary team, consultants and admitting teams. Critical care time: Minutes: 45 Code Status/Resusc. Discussion Code status: full code Electronically Signed by Yossi Mackenzie on 11/19 at 0624 RPT #:[id number] END OF REPORT 2019-11-20 00:50:00-00:00 [facility] ([facility]) Critical Care Consult Note REPORT#:[id number] REPORT STATUS: Signed DATE:11/20/19 TIME: 49 PATIENT: JORGE GOINS UNIT #: [id number] ROOM/BED: [address] : 86 AGE: 34 SEX: M ATTEND: Sebastián Davis II, MD ADM AUTHOR: Yossi Mackenzie * ALL edits or amendments must be made on the rimidi/computer document * History of Present Illness HPI Requesting clinician: Dr. Cardoso Reason for consult: HTN Emergency and CHF exacerbation. Chief complaint: SOB HPI: Patient is a 34-year-old mal e with prior medical history significant for CHF and malignant hypertension. Patient presented to a [facility] emergency department with complaints of shortness of breath x1 week. Patient reports bad headache and back pain but n o complaints of fevers, chills, nausea or vomiting. Patient is poorly compliant with his medication regimen at home. Patient's COVID screen was negative chest x-ray sh owed cardiomegaly and pulmonary edema. Patient with initial blood pressure of 220/140 t hat was poorly responsive to initial measures. Patient was placed on nitro dr ip and transferred to [facility] where he was changed to Car dene and given IV Lasix. Head CT was negative for any acute bleed or i nfarcts, patient is alert and oriented x3. Patient was subsequently transferred to the ICU for continued care. History - Adult longitudinal Past medical history: Reports: Congestive heart failure, Hypertension. Additional medical history: Hypertension, CHF Additional surgical history: Cholecystectomy Family history: Reports: Diabetes, Hypertension. Alcohol use: Denies EtOH use Drug use: Denies recreational drugs Smoking status for patients 13 years old or olde r: Never Smoker Other social history: Local resident Medications: Home Medications: Medication Dose/Rte/Freq Days Qty Entered Last Max Daily Dose Reviewed ALBUTEROL 2 PUFF INH 05/08/19 (PROAIR HFA 90 MCG/ACT RTQ6H PRN PRN SOB 1946 8.5 GM) Strength: 90 MCG INHALER FUROSEMIDE (LASIX) 40 MG PO BID 60 05/10/19 Strength: 20 MG TAB 1127 ASPIRIN EC (ECOTRIN) 81 MG PO DAILY 30 30 05/10 Strength: 81 MG TAB.EC 1128 ATORVASTATIN (LIPITOR) 20 MG PO BEDTIME 30 30 1 07/10/18 Strength: 20 MG TAB 1128 NIFEdipine XL 30 MG PO Q12HR 30 60 05/10/19 (PROCARDIA XL) 1224 Strength: 30 MG TAB.SA CARVEDILOL (COREG) 25 MG PO BID MEALS 30 60 Strength: 25 MG TAB 1224 ACETAMINOPHEN/CODEINE 1 TAB PO 7 20 05/10/19 (TYLENOL WITH CODEINE Q6H PRN PRN PAIN 1224 #4 300/60 MG) Strength: 300 MG-60 MG TAB POTASSIUM CHLORIDE ER 10 MEQ PO DAILY 30 30 (KLOR-CON 10) 1224 Strength: 10 MEQ TAB.SA Current Hospital Medications: Cardiovascular Drugs Sig/Ronan Start time Last Medication Dose Route Stop Time Status Admin Atorvastatin Calcium 20 MG BEDTIME 11/19 2100 A C (LIPITOR 20MG TAB) PO 12/19 205 Carvedilol 25 MG BID MEALS 11/19 0800 AC (COREG 25MG TAB) PO 12/19 0759 Hydralazine HCl 10 MG Q3H PRN PRN 11/19 0045 AC 11/19 (hydrALAZINE HCL) IV 12/19 0044 0104 Nicardipine HCl 25 MG TITRATE 11/18 2345 AC (CARDENE) IV 12/18 2344 0031 Sodium Chloride 250 ML (SODIUM CHLORIDE) Nitroglycerin/ 250 ML X1ED STA 11/18 191 CAN Dextrose IV 11/29 0514 (NITROGLYCERIN 50MG/ D5 250ML) Nitroglycerin/ 250 ML X1ED STA 11/18 1911 DC Dextrose IV 11/29 0510 1927 (NITROGLYCERIN 50MG/ D5 250ML) Nitroglycerin 1 GM X1ED STA 11/18 1732 DC 11/18 (NITRO-BID) TRANSDERM 11/18 173 1800 Nitroglycerin 0.4 MG Q5M PRN PRN 11/18 1730 AC 11/18 (NITROQUICK) SL 1800 Central Nervous System Agents Sig/Ronan Start time Last Medication Dose Route Stop Time Status Admin Morphine Sulfate 2 MG ONCE ONE 11/19 0100 DC (morphine SULFATE) IV 11/19 0101 0104 Acetaminophen 650 MG Q6H PRN PRN 11/18 2345 AC 11/19 (TYLENOL) PO 12/18 2338 0109 Morphine Sulfate 4 MG ONCE ONE 11/18 2230 DC (morphine SULFATE) IV 11/18 223 2224 Tramadol HCl 50 MG ONCE ONE 11/18 2200 DC 11/18 (ULTRAM) PO 11/18 2200 2158 Acetaminophen 650 MG Q4H PRN PRN 11/18 1945 DC 11/18 (TYLENOL) PO 11/19 0741 2014 Acetaminophen 500 MG X1ED STA 11/18 1852 DC (TYLENOL EXTRA PO 11/18 1853 1901 STRENGTH) Aspirin 325 MG X1ED STA 11/18 1830 DC 11/18 (ASPIRIN) PO 11/18 183 1849 Electrolytic, Caloric, And Camila Sig/Ronan Start time Last Medication Dose Route Stop Time Status Admin Furosemide 40 MG Q12HR 11/19 0900 AC (FUROSEMIDE) IV 12/19 0859 Furosemide 40 MG X1ED STA 11/18 1756 DC 11/18 (FUROSEMIDE) IV 11/18 1757 1759 Gastrointestinal Drugs Sig/Ronan Start time Last Medication Dose Route Stop Time Status Admin Ondansetron HCl 4 MG Q4H PRN PRN 11/19 0045 AC (ondansetron HCL) IV 12/19 0044 Ondansetron HCl 4 MG Q6H PRN PRN 11/18 1945 AC 11/19 (ondansetron HCL) IV 11/22 0741 0009 Skin And Mucous Membrane Agent Sig/Ronan Start time Last Medication Dose Route Stop Time Status Admin Mupirocin 1 APPLIC BID 11/18 2100 AC (BACTROBAN NASAL - NASAL 11/23 0901 ADULT ICU) Allergies: Coded Allergies: Iodine and Iodide Containing Produc (Severe, HIV ES 11/19/19) shellfish derived (Intermediate, RASH 11/19/19) Review of Systems Musculoskeletal: Other musculoskeletal: Reports: lumbar pain, thoracic pain. Neuro: Reports: headache. Denies: confusion, focal weak ness, gait problem. All systems rev neg: except as marked Objective Physical Exam: Medications: Active Meds + DC'd Last 24 Hrs Atorvastatin Calcium 20 MG BEDTIME PO Carvedilol 25 MG BID MEALS PO Morphine Sulfate 2 MG ONCE ONE IV Hydralazine HCl 10 MG Q3H PRN PRN IV Ondansetron HCl 4 MG Q4H PRN PRN IV Acetaminophen 650 MG Q6H PRN PRN PO Nicardipine HCl 25 MG TITRATE IV Sodium Chloride 250 ML Morphine Sulfate 4 MG ONCE ONE IV (DC) Tramadol HCl 50 MG ONCE ONE PO (DC) Mupirocin 1 APPLIC BID NASAL Acetaminophen 650 MG Q4H PRN PRN PO (DC) Ondansetron HCl 4 MG Q6H PRN PRN IV Nitroglycerin/Dextrose 250 ML X1ED STA IV (CAN) Nitroglycerin/Dextrose 250 ML X1ED STA IV (DC) Acetaminophen 500 MG X1ED STA PO (DC) Aspirin 325 MG X1ED STA PO (DC) Furosemide 40 MG X1ED STA IV (DC) Nitroglycerin 1 GM X1ED STA TRANSDERM (DC) Nitroglycerin 0.4 MG Q5M PRN PRN SL General appearance: alert, awake, oriented Head/Eyes: atraumatic, normocephalic Neck: non-tender, no bruit/NL carotids, no JVD Cardiovascular: murmur, normal heart sounds, nor mal S1 S2 Respiratory/Chest: crackles, aerating well, suzanne r to auscultation, symmetric expansion Abdomen: soft, non-tender, no guarding 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, oriented X 3, CNII-XII intact Skin: dry, intact Results: Findings/Data: Laboratory Tests 11/19/19 1800: [Embedded Image Not Available] Laboratory Tests 11/18 11/18 11/18 1800 1800 1800 Chemistry Sodium (128 - 145 mmol/L) 136 Potassium (3.5 - 5.1 mmol/L) 4.6 Chloride (98 - 107 mmol/L) 100.0 Carbon Dioxide (22 - 29 mmol/L) 22.8 Anion Gap (10 - 20 mmol/L) 18 BUN (7 - 22 mg/dL) 32 H Creatinine (0.55 - 1.3 mg/dL) 1.92 H Glomerular Filtr Rate (>=60 mL/min) 49 BUN/Creatinine Ratio (10 - 20) 16.7 Glucose (70 - 110 mg/dL) 97 Lactic Acid (0.4 - 1.9 MMOL/L) 1.0 Calcium (8.0 - 10.5 mg/dL) 8.6 Total Bilirubin (0.2 - 1.2 mg/dL) 1.20 Direct Bilirubin (0.0 - 0.30 mg/dL) 0.70 H AST (10 - 39 U/L) 35 ALT (10 - 69 U/L) 27 Total Alk Phosphatase (50 - 139 U/L) 143 H Troponin I (0.00 - 0.056 ng/mL) 0.06 *H B-Natriuretic Peptide (0 - 100 pg/mL) 978 H Total Protein (6.1 - 7.8 gram/dL) 7.7 Albumin (3.3 - 4.4 g/dL) 3.2 L Globulin (1 - 10 G/DL) 4.5 Albumin/Globulin Ratio (0.75 - 1.50) 0.7 L Laboratory Tests 11/18 1800 Coagulation INR (0.8 - 1.2) 1.4 H PTT ([place]) (25.5 - 34.3 seconds) 25.8 PT Patient/Control Mix (9.0 - 13.0 seconds) 13. 3 H Laboratory Tests 11/18 1800 Hematology WBC (4.5 - 12.5 K/mm3) 7.3 RBC (4.0 - 5.8 mill/mm3) 5.12 Hgb (13.0 - 17.5 gram/dL) 13.7 Hct (42.0 - 52.0 %) 43.6 MCV (80 - 98 fL) 85.2 MCH (27.0 - 33.0 picogram) 26.8 L MCHC (33.0 - 36.0 gram/dL) 31.4 L RDW (11.6 - 16.2 %) 16.9 H RDW Std Deviation (37.0 - 51.0 fL) 53.1 H Plt Count (150 - 450 K/mm3) 301 MPV (6.7 - 11.0 fL) 10.2 Laboratory Tests 11/18 1735 Serology Nasal/Oral COVID-19 PCR Negative Laboratory Tests 11/18 1637 Toxicology Urine Opiates Screen (NEGATIVE) POSITIVE H Urine Methadone Screen (<300 ng/mL) NEGATIVE Urine Barbiturates (NEGATIVE) NEGATIVE Ur Phencyclidine Scrn (NEGATIVE) NEGATIVE Ur Amphetamines Screen (NEGATIVE) NEGATIVE MDMA (NEGATIVE) NEGATIVE U Benzodiazepines Scrn (NEGATIVE) NEGATIVE Urine Cocaine Screen (NEGATIVE) NEGATIVE Urine Cannabinoids (<50 ng/mL) NEGATIVE Microbiology: 11/18 1723 BLOOD: Blood Culture - ORD 11/18 172 BLOOD: Blood Culture - ORD Radiology data: Recent Impressions: RADIOLOGY - XR CHEST 1 V 11/18 1732 Report Impression - Status: SIGNED Entered: 11/19/2019 1811 IMPRESSION: Congestive heart failure with pulmon kenan edema and probable small bilateral pleural effusions Impression By: Evelyne Chino M.D. CAT SCAN - CT HEAD/BRAIN W/O CONT 11/18 2124 Report Impression - Status: SIGNED Entered: 11/19/20192139 IMPRESSION: Unremarkable brain. Impression By: Evelyne Chino M.D. Results: labs reviewed, current med profile rev' d Diagnosis, Assessment Plan Diagnosis, Assessment Plan Problem List/A P: 1. Hypertensive emergency 2. Pulmonary edema 3. Elevated troponin 4. CHF exacerbation Free Text A P: History of Present Illness: Patient is a 34-year-old mal e with prior medical history significant for CHF and malignant hypertension. Patient presented to a [facility] emergency department with complaints of shortness of breath x1 week. Patient reports bad headache and back pain but n o complaints of fevers, chills, nausea or vomiting. Patient is poorly compliant with his medication regimen at home. Patient's COVID screen was negative chest x-ray sh owed cardiomegaly and pulmonary edema. Patient with initial blood pressure of 220/140 t hat was poorly responsive to initial measures. Patient was placed on nitro dr ip and transferred to [facility] where he was changed to Car dene and given IV Lasix. Head CT was negative for any acute bleed or i nfarcts, patient is alert and oriented x3. Patient was subsequently transferred to the ICU for continued care. Hospital Course: 11/20/2019: Patient was star kar on Cardene drip with hydralazine PRN, home meds restarted lab work pending. Patient started on I V Lasix will recheck BMP in a.m. Active Problems: Hypertensive emergency: -Worsening headache and back pain head CT negati ve -Started on IV Cardene will wean as tolerated -Restarted home BP medications CHF exacerbation: -BNP elevated over 900, IV Lasix initiated -Chest x-ray showed CHF and pulmonary edema with small bilateral pleural effusions -Echo ordered and pending -Recheck labs in a.m. ICU Patient Safety Checklist: - Diet: Cardiac diet - Bowel regimen: Colace - Glucose q6h: None - Antibiotics: None - Home meds resumed: yes - Ulcer prophylaxis (discontinue if on diet): No ne - DVT prophylaxis: SCD, heparin - Zuñiga: None - Lines: Peripheral IV - Wounds or pressure ulcer present on admission: None - Next of kin: Unknown - Code status: Full code - Disposition: ICU Critical care time: 40 minutes, excluding proced ures, was spent directly evaluating the patient at the bedside, i nterpreting labs and imaging, ordering new labs and medications, an d discussing the case with the ICU multidisciplinary team, consultants and admitting teams. Critical care time: Minutes: 45 Code Status/Resusc. Discussion Code status: full code Electronically Signed by Yossi Mackenzie on 10/25 01/12 at 0624 Electronically Signed by Jojo Cano MD on 0 11/20/19 at 2258 RPT #:[id number] END OF REPORT 2019-11-19 17:34:00-00:00 [facility] ([facility]) EMERGENCY PROVIDER REPORT REPORT#:[id number] REPORT STATUS: Signed DATE:11/19/19 TIME: 1733 PATIENT: JORGE GOINS UNIT #: [id number] ROOM/BED: [place] [address] AGE: 34 SEX: M PCP PHYS: No Primary or Family P hysician SERVICE AUTHOR: Donn Cardoso MD * ALL edits or amendments must be made on the rimidi/computer document * Donn Cardoso 11/19/191733: HPI-Dyspnea/Wheezing General Initial Greet Date/Time 11/19/19 1700 Presentation Chief Complaint Congestive heart failure, Shortn ess of breath )( Sudden in Onset? No Free Text HPI Notes Free Text HPI Notes 34-year-old male with histor y of CHF and hypertension presents with shortness of breath for 1 week. It is associated with dry cou gh. Denies any fever. Denies any expectoration. Denies any recent surgery, tr justice. Risk-Dyspnea/Wheezing Risk Stratification Coronary Artery Disease Risk factors reviewed Review of Systems ROS Statements All systems rev neg except as marked. Focused Review of Systems Respiratory Reports: Cough, non-productive, Shortness of myles ath. Past Medical History - Adult Stated Complaint SHORT OF BREATH Allergies Coded Allergies: Iodine and Iodide Containing Produc (Severe, HIV ES 11/19/19) shellfish derived (Intermediate, RASH 11/19/19) Home Medications Active Scripts FUROSEMIDE (LASIX) 40 MG PO BID FUROSEMIDE (LASIX) 40 MG PO BID #60 TAB Prov: 05/10/19 ASPIRIN EC (ECOTRIN) 81 MG PO DAILY 30 Days #30 TABS Prov: 05/10/19 ATORVASTATIN (LIPITOR) 20 MG PO BEDTIME 30 Days #30 TABS Prov: 05/10/19 NIFEdipine XL (PROCARDIA XL) 30 MG PO Q12HR 30 Days #60 TAB Prov: 05/10/19 CARVEDILOL (COREG) 25 MG PO BID MEALS 30 Days #60 TAB Prov: 05/10/19 ACETAMINOPHEN/CODEINE (TYLENOL WITH CODE INE #4 300/60 MG) 1 TAB PO Q6H PRN PRN PAIN 7 Days #20 TAB Prov: 05/10/19 POTASSIUM CHLORIDE ER (KLOR-CON 10) 10 MEQ PO DA BELLA 30 Days #30 TABS Prov: 05/10/19 Reported Medications ALBUTEROL (PROAIR HFA 90 MCG/ACT 8.5 GM) 2 PUFF INH RTQ6H PRN PRN SOB Review of Nursing Notes Rev avail, and agree Additional Medical History Hypertension, CHF Additional Surgical History Cholecystectomy Smoking status for patients 13 years old or olde r: Never Smoker Physical Exam Vital Signs Vital Signs First Documented: Result Date Time Pulse Ox 95 11/18 1708 B/P 205/150 11/18 1708 B/P Mean 168 11/18 170 O2 Delivery Room air 11/19 1707 Temp 37.2 11/18 170 Pulse 102 11/18 1708 Resp 18 11/18 170 O2 Flow Rate [id number] 11/18 1710 Last Documented: Result Date Time Pulse Ox 93 11/18 1902 B/P 220/140 05/26 1902 B/P Mean 166 11/18 1901 O2 Delivery Nasal cannula 11/18 1901 O2 Flow Rate [id number] 11/18 1901 Temp 37.1 11/18 1901 Pulse 102 11/18 1901 Resp 18 11/18 1901 Review of Vital Signs Reviewed Focused PE General/Const Text/Dict Notes Patient in mild respiratory distress Ears/Nose/Throat Ears/Nose/Throat Airway patent, Mucous membrane s moist, Pharynx NL MS Neck Text/Dict Notes Mild JVD noted Resp/Chest Respiratory/Chest Breath sounds NL, Breath soun ds = bilat, No respiratory distress, No rales, No rhonchi, No wheezing, No retractions, No stridor Cardiovascular Text/Dict Notes Third heart sound noted(S3 gallop) Heart Rate/Rhythm Tachycardia. Abdomen/GI Abdomen/GI Soft, Non-tender, No guarding, No re bound MS Back Back Inspection NL, Non-tender, No CVA tenderne ss MS Lower Extrem Text/Dict Notes 3+ pitting edema knee bilaterally Skin Skin Color NL, No rash, Warm, Dry, Turgor NL Neurologic Neurologic Oriented X3, Speech NL, No motor def icits, No sensory deficits Interpretation Diagnostics ECG #1 Interpretation Text/Dict Note EKG performed at 1713 shows sinus tachycardia, n onspecific ST-T changes, no STEMI Re-Evaluation MDM Free Text MDM Notes Free Text MDM Notes 34-year-old male presents with shortness of shukri th, work-up reveals pulmonary edema and slightly elevated troponin. Consulted hospitalist Dr. Martinez Lowery, recommends discussing with t [facility] hospitalist at 1900. Patient signed out to Dr. Tidwell at 1899 )( Re-Evaluation/Progress #1 )( Re-Eval Status Improved Consultation Consultation Referral/Consult Name Raheem Yu MD Master Esthetician Called Cardiology Requested Call Time 1836 Requested Call Date 11/19/19 Call Returned Call returned Call Returned Time 1836 Call Returned Date 11/19/19 Free Text Consult Notes Charge Auditor recommends that patient be discharg ed home with po lasix, and advises that in future we not call him unless it is code STEMI Patient Discharge Departure Vital Signs/Condition Vital Signs First Documented: Result Date Time Pulse Ox 95 11/18 1708 B/P 205/150 11/18 1708 B/P Mean 168 11/18 170 O2 Delivery Room air 11/19 1707 Temp 37.2 11/18 170 Pulse 102 11/18 1708 Resp 18 11/18 170 O2 Flow Rate [id number] 11/18 1710 Last Documented: Result Date Time Pulse Ox 93 11/18 1901 B/P 220/140 11/18 1901 B/P Mean 166 11/18 190 O2 Delivery Nasal cannula 11/18 1901 O2 Flow Rate [id number] 11/18 1901 Temp 37.1 11/18 190 Pulse 102 11/18 190 Resp 18 11/18 190 All vital signs available at the time of this en try have been reviewed. Clinical Impression Clinical Impression Primary Impression: Pulmonary edema Secondary Impressions: Elevated troponin Discharge/Care Plan Referrals No Primary or Family Physician (PCP/Family) Cristiano Tidwell 11/19/19 1938: Interpretation Diagnostics Lab Results Interpretation Results Laboratory Tests 11/19/19 1800: [Embedded Image Not Available] Laboratory Tests: 11/18 11/18 11/18 11/18 1800 1800 1800 1735 Chemistry Sodium (128 - 145 mmol/L) 136 Potassium (3.5 - 5.1 mmol/L) 4.6 Chloride (98 - 107 mmol/L) 100.0 Carbon Dioxide (22 - 29 mmol/L) 22.8 Anion Gap (10 - 20 mmol/L) 18 BUN (7 - 22 mg/dL) 32 H Creatinine (0.55 - 1.3 mg/dL) 1.92 H Glomerular Filtr Rate (>=60 mL/min) 49 BUN/Creatinine Ratio (10 - 20) 16.7 Glucose (70 - 110 mg/dL) 97 Lactic Acid (0.4 - 1.9 MMOL/L) 1.0 Calcium (8.0 - 10.5 mg/dL) 8.6 Total Bilirubin (0.2 - 1.2 mg/dL) 1.20 Direct Bilirubin (0.0 - 0.30 mg/dL) 0.70 H AST (10 - 39 U/L) 35 ALT (10 - 69 U/L) 27 Total Alk Phosphatase (50 - 139 U/L) 143 H Troponin I (0.00 - 0.056 ng/mL) 0.06 *H B-Natriuretic Peptide (0 - 100 pg/mL) 978 H Total Protein (6.1 - 7.8 gram/dL) 7.7 Albumin (3.3 - 4.4 g/dL) 3.2 L Globulin (1 - 10 G/DL) 4.5 Albumin/Globulin Ratio (0.75 - 1.50) 0.7 L Coagulation INR (0.8 - 1.2) 1.4 H PTT (Nathan) (25.5 - 34.3 seconds) 25.8 PT Patient/Control Mix (9.0 - 13.0 seconds) 13. 3 H Hematology WBC (4.5 - 12.5 K/mm3) 7.3 RBC (4.0 - 5.8 mill/mm3) 5.12 Hgb (13.0 - 17.5 gram/dL) 13.7 Hct (42.0 - 52.0 %) 43.6 MCV (80 - 98 fL) 85.2 MCH (27.0 - 33.0 picogram) 26.8 L MCHC (33.0 - 36.0 gram/dL) 31.4 L RDW (11.6 - 16.2 %) 16.9 H RDW Std Deviation (37.0 - 51.0 fL) 53.1 H Plt Count (150 - 450 K/mm3) 301 MPV (6.7 - 11.0 fL) 10.2 Serology Nasal/Oral COVID-19 PCR Negative 11/18 1637 Toxicology Urine Opiates Screen (NEGATIVE) POSITIVE H Urine Methadone Screen (<300 ng/mL) NEGATIVE Urine Barbiturates (NEGATIVE) NEGATIVE Ur Phencyclidine Scrn (NEGATIVE) NEGATIVE Ur Amphetamines Screen (NEGATIVE) NEGATIVE MDMA (NEGATIVE) NEGATIVE U Benzodiazepines Scrn (NEGATIVE) NEGATIVE Urine Cocaine Screen (NEGATIVE) NEGATIVE Urine Cannabinoids (<50 ng/mL) NEGATIVE Microbiology: Date/Time Procedure - Status Source Growth 11/18 1723 Blood Culture - ORD BLOOD 11/18 1723 Blood Culture - ORD BLOOD Recent Impressions: RADIOLOGY - XR CHEST 1 V 11/18 1732 Report Impression - Status: SIGNED Entered: 11/19/2019 1811 IMPRESSION: Congestive heart failure with pulmon kenan edema and probable small bilateral pleural effusions Impression By: Evelyne Chino M.D. Re-Evaluation MDM Free Text MDM Notes Free Text MDM Notes Received patient in signout pending admi ssion to medicine. BP trending back up despite Nitropaste and sublingual nitro, placed on nitro drip and admitted to ICU for further management. ED Course Medication(s) Ordered Medication(s) Ordered: Cardiovascular Drugs Sig/Ronan Start time Last Medication Dose Route Stop Time Status Admin Nitroglycerin/ 250 ML X1ED STA 11/18 191 CAN Dextrose IV 11/29 0514 Nitroglycerin/ 250 ML X1ED STA 11/18 1911 AC Dextrose IV 11/29 0510 1927 Nitroglycerin 1 GM X1ED STA 11/18 1732 DC 11/18 TRANSDERM 11/18 173 1800 Nitroglycerin 0.4 MG Q5M PRN PRN 11/18 1730 AC 11/18 SL 1800 Central Nervous System Agents Sig/Ronan Start time Last Medication Dose Route Stop Time Status Admin Acetaminophen 650 MG Q4H PRN PRN 11/18 194 AC 11/18 PO 11/19 0741 2014 Acetaminophen 500 MG X1ED STA 11/18 1852 DC PO 11/18 185 1901 Aspirin 325 MG X1ED STA 11/18 1830 DC 11/18 PO 11/18 183 1849 Electrolytic, Caloric, And Camila Sig/Ronan Start time Last Medication Dose Route Stop Time Status Admin Furosemide 40 MG X1ED STA 11/18 1756 DC 11/18 IV 11/18 175 1759 Gastrointestinal Drugs Sig/Ronan Start time Last Medication Dose Route Stop Time Status Admin Ondansetron HCl 4 MG Q6H PRN PRN 11/18 194 AC IV 11/19 0741 Skin And Mucous Membrane Agent Sig/Ronan Start time Last Medication Dose Route Stop Time Status Admin Mupirocin 1 APPLIC BID 11/18 2100 AC NASAL 11/23 0901 Consultation Consultation Referral/Consult Name Jojo Cano MD Master Esthetician Called Final Touch Up Painter Requested Call Time 1946 Requested Call Date 11/19/19 Call Returned Call returned (Ron) Call Returned Time 1999 Call Returned Date 11/19/19 Master Esthetician Will see patient, Agrees with eval, Agrees with plan Patient Discharge Departure Vital Signs/Condition Condition Guarded Disposition Decision Admit Admit Physician Name Anette Hughes MD Admit Physician Hospitalist Request Time 1938 Request Date 11/19/19 )( Admission Accepts Yes )( Accepted Time 1940 )( Accepted Date 11/19/19 Call Information will see patient, agrees with eval, agrees with plan Electronically Signed by Donn Cardoso MD 11/19/19 at 2021 RPT #:[id number] END OF REPORT 2019-11-19 17:34:00-00:00 [facility] ([facility]) EMERGENCY PROVIDER REPORT REPORT#:[id number] REPORT STATUS: Signed DATE:11/19/19 TIME: 1733 PATIENT: JORGE GOINS UNIT #: [id number] ROOM/BED: [address] AGE: 34 SEX: M PCP PHYS: No Primary or Family P hysician SERVICE AUTHOR: Donn Cardoso MD * ALL edits or amendments must be made on the rimidi/computer document * Donn Cardoso 11/19/191733: HPI-Dyspnea/Wheezing Presentation Chief Complaint Congestive heart failure, Shortn ess of breath )( Sudden in Onset? No Free Text HPI Notes Free Text HPI Notes 34-year-old male with histor y of CHF and hypertension presents with shortness of breath for 1 week. It is associated with dry cou gh. Denies any fever. Denies any expectoration. Denies any recent surgery, tr justice. Risk-Dyspnea/Wheezing Risk Stratification Coronary Artery Disease Risk factors reviewed Review of Systems ROS Statements All systems rev neg except as marked. Focused Review of Systems Respiratory Reports: Cough, non-productive, Shortness of myles ath. Past Medical History - Adult Stated Complaint SHORT OF BREATH Allergies Coded Allergies: Iodine and Iodide Containing Produc (Severe, HIV ES 11/19/19) shellfish derived (Intermediate, RASH 11/19/19) Home Medications Active Scripts FUROSEMIDE (LASIX) 40 MG PO BID FUROSEMIDE (LASIX) 40 MG PO BID #60 TAB Prov: 05/10/19 ASPIRIN EC (ECOTRIN) 81 MG PO DAILY 30 Days #30 TABS Prov: 05/10/19 ATORVASTATIN (LIPITOR) 20 MG PO BEDTIME 30 Days #30 TABS Prov: 05/10/19 NIFEdipine XL (PROCARDIA XL) 30 MG PO Q12HR 30 Days #60 TAB Prov: 05/10/19 CARVEDILOL (COREG) 25 MG PO BID MEALS 30 Days #60 TAB Prov: 05/10/19 ACETAMINOPHEN/CODEINE (TYLENOL WITH CODE INE #4 300/60 MG) 1 TAB PO Q6H PRN PRN PAIN 7 Days #20 TAB Prov: 05/10/19 POTASSIUM CHLORIDE ER (KLOR-CON 10) 10 MEQ PO DA BELLA 30 Days #30 TABS Prov: 05/10/19 Reported Medications ALBUTEROL (PROAIR HFA 90 MCG/ACT 8.5 GM) 2 PUFF INH RTQ6H PRN PRN SOB Review of Nursing Notes Rev avail, and agree Additional Medical History Hypertension, CHF Additional Surgical History Cholecystectomy Smoking status for patients 13 years old or olde r: Never Smoker Physical Exam Vital Signs Vital Signs First Documented: Result Date Time Pulse Ox 95 11/19 1707 B/P 205/150 11/18 170 B/P Mean 168 11/19 1707 O2 Delivery Room air 11/19 1707 Temp 37.2 11/19 1707 Pulse 102 11/19 1707 Resp 18 11/19 1707 O2 Flow Rate 2.671306 11/18 1710 Last Documented: Result Date Time Pulse Ox 94 11/18 1952 B/P 215/414 11/18 1952 B/P Mean 347 11/18 1952 O2 Delivery Nasal cannula 11/18 1952 O2 Flow Rate 2.710841 11/18 1952 Pulse 96 11/18 1952 Resp 16 11/18 1952 Temp 37.1 11/18 1901 Review of Vital Signs Reviewed Focused PE General/Const Text/Dict Notes Patient in mild respiratory distress Ears/Nose/Throat Ears/Nose/Throat Airway patent, Mucous membrane s moist, Pharynx NL MS Neck Text/Dict Notes Mild JVD noted Resp/Chest Respiratory/Chest Breath sounds NL, Breath soun ds = bilat, No respiratory distress, No rales, No rhonchi, No wheezing, No retractions, No stridor Cardiovascular Text/Dict Notes Third heart sound noted(S3 gallop) Heart Rate/Rhythm Tachycardia. Abdomen/GI Abdomen/GI Soft, Non-tender, No guarding, No re bound MS Back Back Inspection NL, Non-tender, No CVA tenderne ss MS Lower Extrem Text/Dict Notes 3+ pitting edema knee bilaterally Skin Skin Color NL, No rash, Warm, Dry, Turgor NL Neurologic Neurologic Oriented X3, Speech NL, No motor def icits, No sensory deficits Interpretation Diagnostics Lab Results Interpretation Results Laboratory Tests 11/19/19 1800: [Embedded Image Not Available] Laboratory Tests: 11/18 11/18 11/18 11/18 1800 1800 1800 1735 Chemistry Sodium (128 - 145 mmol/L) 136 Potassium (3.5 - 5.1 mmol/L) 4.6 Chloride (98 - 107 mmol/L) 100.0 Carbon Dioxide (22 - 29 mmol/L) 22.8 Anion Gap (10 - 20 mmol/L) 18 BUN (7 - 22 mg/dL) 32 H Creatinine (0.55 - 1.3 mg/dL) 1.92 H Glomerular Filtr Rate (>=60 mL/min) 49 BUN/Creatinine Ratio (10 - 20) 16.7 Glucose (70 - 110 mg/dL) 97 Lactic Acid (0.4 - 1.9 MMOL/L) 1.0 Calcium (8.0 - 10.5 mg/dL) 8.6 Total Bilirubin (0.2 - 1.2 mg/dL) 1.20 Direct Bilirubin (0.0 - 0.30 mg/dL) 0.70 H AST (10 - 39 U/L) 35 ALT (10 - 69 U/L) 27 Total Alk Phosphatase (50 - 139 U/L) 143 H Troponin I (0.00 - 0.056 ng/mL) 0.06 *H B-Natriuretic Peptide (0 - 100 pg/mL) 978 H Total Protein (6.1 - 7.8 gram/dL) 7.7 Albumin (3.3 - 4.4 g/dL) 3.2 L Globulin (1 - 10 G/DL) 4.5 Albumin/Globulin Ratio (0.75 - 1.50) 0.7 L Coagulation INR (0.8 - 1.2) 1.4 H PTT ([place]) (25.5 - 34.3 seconds) 25.8 PT Patient/Control Mix (9.0 - 13.0 seconds) 13. 3 H Hematology WBC (4.5 - 12.5 K/mm3) 7.3 RBC (4.0 - 5.8 mill/mm3) 5.12 Hgb (13.0 - 17.5 gram/dL) 13.7 Hct (42.0 - 52.0 %) 43.6 MCV (80 - 98 fL) 85.2 MCH (27.0 - 33.0 picogram) 26.8 L MCHC (33.0 - 36.0 gram/dL) 31.4 L RDW (11.6 - 16.2 %) 16.9 H RDW Std Deviation (37.0 - 51.0 fL) 53.1 H Plt Count (150 - 450 K/mm3) 301 MPV (6.7 - 11.0 fL) 10.2 Serology Nasal/Oral COVID-19 PCR Negative 11/18 1637 Toxicology Urine Opiates Screen (NEGATIVE) POSITIVE H Urine Methadone Screen (<300 ng/mL) NEGATIVE Urine Barbiturates (NEGATIVE) NEGATIVE Ur Phencyclidine Scrn (NEGATIVE) NEGATIVE Ur Amphetamines Screen (NEGATIVE) NEGATIVE MDMA (NEGATIVE) NEGATIVE U Benzodiazepines Scrn (NEGATIVE) NEGATIVE Urine Cocaine Screen (NEGATIVE) NEGATIVE Urine Cannabinoids (<50 ng/mL) NEGATIVE Microbiology: Date/Time Procedure - Status Source Growth 11/18 1722 Blood Culture - COLB BLOOD 11/18 1722 Blood Culture - COLB BLOOD Recent Impressions: RADIOLOGY - XR CHEST 1 V 11/18 173 Report Impression - Status: SIGNED Entered: 11/19/2019 181 IMPRESSION: Congestive heart failure with pulmon kenan edema and probable small bilateral pleural effusions Impression By: Evelyne Chino M.D. ECG #1 Interpretation Text/Dict Note EKG performed at 1713 shows sinus tachycardia, n onspecific ST-T changes, no STEMI Re-Evaluation MDM Free Text MDM Notes Free Text MDM Notes 34-year-old male presents with shortness of shukri th, work-up reveals pulmonary edema and slightly elevated troponin. Consulted hospitalist Dr. Martinez Lowery, recommends discussing with count includes the [facility] hospitalist at 0. Patient signed out to Dr. Tidwell at 1899 )( Re-Evaluation/Progress #1 )( Re-Eval Status Improved ED Course Medication(s) Ordered Medication(s) Ordered: Cardiovascular Drugs Sig/Ronan Start time Last Medication Dose Route Stop Time Status Admin Nitroglycerin/ 250 ML X1ED STA 11/18 1914 CAN Dextrose IV 11/29 0414 Nitroglycerin/ 250 ML X1ED STA 11/18 1911 DC Dextrose IV 11/29 0510 1927 Nitroglycerin 1 GM X1ED STA 11/18 1732 DC 11/18 TRANSDERM 05/26 1733 1800 Nitroglycerin 0.4 MG Q5M PRN PRN 11/18 1730 AC 11/18 SL 1800 Central Nervous System Agents Sig/Ronan Start time Last Medication Dose Route Stop Time Status Admin Acetaminophen 650 MG Q4H PRN PRN 11/18 194 DC 11/18 PO 11/19 0741 2014 Acetaminophen 500 MG X1ED STA 11/18 1852 DC PO 11/18 185 190 Aspirin 325 MG X1ED STA 11/18 1830 DC 11/18 PO 11/18 183 1849 Electrolytic, Caloric, And Camila Sig/Ronan Start time Last Medication Dose Route Stop Time Status Admin Furosemide 40 MG X1ED STA 11/18 1756 DC 11/18 IV 11/18 175 175 Gastrointestinal Drugs Sig/Ronan Start time Last Medication Dose Route Stop Time Status Admin Ondansetron HCl 4 MG Q6H PRN PRN 11/18 1944 AC 11/19 IV 11/22 0741 0009 Skin And Mucous Membrane Agent Sig/Ronan Start time Last Medication Dose Route Stop Time Status Admin Mupirocin 1 APPLIC BID 11/18 2100 AC NASAL 11/23 0901 Consultation Consultation Referral/Consult Name Raheem Yu MD Master Esthetician Called Cardiology Requested Call Time 183 Requested Call Date 11/19/19 Call Returned Call returned Call Returned Time 1836 Call Returned Date 11/19/19 Free Text Consult Notes Charge Auditor recommends that patient be discharg ed home with po lasix, and advises that in future we not call him unless it is code STEMI Patient Discharge Departure Vital Signs/Condition Vital Signs First Documented: Result Date Time Pulse Ox 95 11/18 1708 B/P 205/150 11/18 1708 B/P Mean 168 11/18 170 O2 Delivery Room air 11/19 1707 Temp 37.2 11/18 170 Pulse 102 11/18 1708 Resp 18 11/18 170 O2 Flow Rate 2.790179 11/18 1710 Last Documented: Result Date Time Pulse Ox 94 11/18 1952 B/P 215/414 11/18 1952 B/P Mean 347 11/18 1952 O2 Delivery Nasal cannula 11/18 1952 O2 Flow Rate 2.128127 11/18 1952 Pulse 96 11/18 1952 Resp 16 11/18 1952 Temp 37.1 11/18 1901 All vital signs available at the time of this en try have been reviewed. Clinical Impression Clinical Impression Primary Impression: Pulmonary edema Secondary Impressions: Elevated troponin Discharge/Care Plan Referrals No Primary or Family Physician (PCP/Family) Cristiano Tidwell 11/19/191937: HPI-Dyspnea/Wheezing General Initial Greet Date/Time 11/19/19 1700 Re-Evaluation MDM Free Text MDM Notes Free Text MDM Notes Received patient in signout pending admi ssion to medicine. BP trending back up despite Nitropaste and sublingual nitro, O2 sat in upper 80s on room air. Patient placed on nitro drip and admitted to ICU for further management. Shortly thereafter, patient developed a severe headache prompting CT head which was unremarkable, and theref ore suspect this is a side effect of the nitro drip. Consultation Consultation Referral/Consult Name Jojo Cano MD Master Esthetician Called Final Touch Up Painter Requested Call Time 1946 Requested Call Date 11/19/19 Call Returned Call returned (HEDY Shin) Call Returned Time 1999 Call Returned Date 11/19/19 Master Esthetician Will see patient, Agrees with eval, Agrees with plan Patient Discharge Departure Vital Signs/Condition Condition Guarded Disposition Decision Admit Admit Physician Name Anette Hughes MD Admit Physician Hospitalist Request Time 1938 Request Date 11/19/19 )( Admission Accepts Yes )( Accepted Time 1940 )( Accepted Date 11/19/19 Call Information will see patient, agrees with eval, agrees with plan Critical Care Time Spent (minutes): 32 Services Performed Patient management by Irving valerio spent at bedside, Reviewing test results, Reviewing imaging, Discussing rosalia ent care, Documentation in record Separately billable procedures excluded from irving e. Electronically Signed by Donn Cardoso MD 11/19/19 at 2022 Electronically Signed by Cristiano Tidwell MD on at 0519 RPT #:[id number] END OF REPORT 2019-05-10 14:26:00-00:00 [facility] General Surgery Progress Note REPORT#:[id number] REPORT STATUS: Signed DATE:05/10/19 TIME: 1426 PATIENT: JORGE GOINS UNIT #: [id number] ROOM/BED: [address] : 86 AGE: 33 SEX: M ATTEND: Brianne Antoine MD ADM AUTHOR: Paresh Oglesby MD * ALL edits or amendments must be made on the el [employer]/computer document * Subjective Patient reports: Yes: tolerating diet. No: complaints. Objective Physical Exam VS/I O Last Documented: Result Date Time Pulse Ox 100 05/10 1034 B/P 148/98 05/10 1034 B/P Mean 114.6 05/10 1034 O2 Delivery Nasal cannula 05/10 1034 O2 Flow Rate 4 05/10 1034 Temp 98.2 05/10 1034 Pulse 80 05/10 1034 Resp 20 05/10 1034 Vital Signs Date Temp Pulse Resp B/P B/P Mean Pulse Ox FiO2 05/09-05/10 97.5-98.9 78-92 14-22 135-176/76-111 0.0-132.6 95-100 Patient Weight Weight (lb): Weight (oz): Weight (kg): 113.182 General appearance: alert, awake Abdomen: soft Results Findings/Data: Laboratory Tests 05/10/19 0441: [Embedded Image Not Available] Laboratory Tests 05/10 441 Chemistry Sodium (136 - 145 mmol/L) 136 Potassium (3.5 - 5.1 mmol/L) 4.8 Chloride (98 - 107 mmol/L) 103.0 Carbon Dioxide (21 - 32 mmol/L) 24.0 Anion Gap (10 - 20) 13.8 BUN (7 - 18 mg/dL) 28 H Creatinine (0.7 - 1.3 mg/dL) 1.70 H Glomerular Filtr Rate (>=60 mL/min) 57 BUN/Creatinine Ratio (10 - 20) 16.5 Glucose (74 - 106 mg/dL) 123 H Calcium (8.5 - 10.1 mg/dL) 8.5 Laboratory Tests 05/10 441 Hematology WBC (4.5 - 12.5 K/mm3) 10.5 RBC (4.0 - 5.8 mill/mm3) 4.75 Hgb (13.0 - 17.5 gram/dL) 12.7 L Hct (42.0 - 52.0 %) 41.6 L MCV (80 - 98 fL) 87.6 MCH (27.0 - 33.0 picogram) 26.7 L MCHC (33.0 - 36.0 gram/dL) 30.5 L RDW (11.6 - 16.2 %) 15.8 RDW Std Deviation (37.0 - 51.0 fL) 49.8 Plt Count (150 - 450 K/mm3) 430 MPV (6.7 - 11.0 fL) 9.5 Neut % (Auto) (39.0 - 69.0 %) 90.5 H Lymph % (Auto) (25.0 - 55.0 %) 4.7 L Citrus % (Auto) (0.0 - 10.0 %) 4.1 Eos % (Auto) (0.0 - 5.0 %) 0.0 Baso % (Auto) (0.0 - 1.0 %) 0.1 Neut # (Auto) (1.8 - 7.7 K/mm3) 9.53 H Lymph # (Auto) (1.0 - 5.0 K/mm3) 0.49 L Citrus # (Auto) (0 - 0.8 K/mm3) 0.43 Eos # (Auto) (0.0 - 0.5 K/mm3) 0.00 Baso # (Auto) (0.0 - 0.2 K/mm3) 0.01 Add Manual Diff NO Nucleated RBC % (0 - 0 %) 0.0 Nucleated RBCs # (Man) (0.0 - 0.1 K/mm3) 0.00 Diagnosis, Assessment Plan Free Text A P: Progressing Electronically Signed by Paresh Oglesby MD on 05/10 at 1426 [facility] #:[id number] END OF REPORT 2019-05-10 13:57:00-00:00 [id number] [facility] PATIENT NAME: JORGE GOINS ADMIT DATE: 05/08 ACCOUNT NO: [id number] ROOM NO: V.3079 AGE: 33 REPORT TYPE: DISCHARGE SUMMARY REPORT SEX: M DATE OF : 87 ADMITTING PHYSICIAN:Brianne Antoine MD ATTENDING PHYSICIAN:Brianne Antoine MD ADMISSION DATE: 05/08/2019 DISCHARGE DATE: 05/10/2019 DISPOSITION: Discharged the patient home. DISCHARGE DIAGNOSES: 1. Acute cholecystitis, status post laparoscopic cholecystectomy. 2. Hypertensive urgency secondary to noncomplian ce with medications that has improved. 3. History of chronic congestive heart failure, unknown type. 4. Obesity. 5. Hyperlipidemia. 6. Chronic kidney disease stage III. HOSPITAL COURSE: Mr. Jorge Goins is a 33-year-old male who presented to the Emergency Room on 05/08/2019 secondary to worsen ing of her abdominal pain. Ultrasound showed evidence o f possible cholecystitis and HIDA scan was positive. General surgery, Dr. Oglesby, was consulted. The pa jossie had elevated blood pressure 204/100 on presentation. He has not bee n compliant with his blood pressure medications, has st arted on oral medications and also diuretics for his CHF and his blood pressure has currently improve d. He underwent laparoscopic cholecystectomy on 05/09/2019 and he coates s have history of chronic CHF, unknown type. Currently, he is stable. All his prescript ions were filled as he needed refills and he was advised t o follow up with primary care physician and general surgery as outpatient in 1 week. I have seen and evaluated the patient on the day of discharge. PHYSICAL EXAMINATION: VITAL SIGNS: Temperature 98.2, heart rate is 80, respirations of 20, blood pressure 148/98 and SpO2 of 96% to 100% on room air. GENERAL: On exam, the patient is awake, alert, a nd oriented. He is currently not in any acute distress. HEAD: Normocephalic. NECK: Supple. CARDIOVASCULAR SYSTEM: Rate and rhythm regular. LUNGS: Clear to auscultation bilaterally. GASTROINTESTINAL: Abdomen is soft. Mild tenderne ss to palpation at the surgical site. Bowel sounds present. NEUROLOGIC: No focal deficits noted. CONDITION AT THE TIME OF DISCHARGE: Stable. PATIENT NAME: JORGE GOINS [id number] MEDICATIONS: Per AUG. ACTIVITY: As tolerated. DIET: Heart-healthy diet. FOLLOWUP: The patient was advised to fol low up with primary care physician and general surgery as outpatient in 1 week. Time spent for discharge process is 35 minutes. Dictated By: Brianne Antoine MD WT: DS:GONZALO/PETRA/RUI Conf#: [id number]/DID#: [id number] Authenticated by Brianne Antoine MD On 2018 07:11:55 PM at 1912 PATIENT NAME: JORGE GOINS [id number] 09:12:00-00:00 [facility] ([facility]) Discharge Summary REPORT#:[id number] REPORT STATUS: Signed DATE:05/10/19 TIME: 911 PATIENT: JORGE GOINS UNIT #: [id number] ROOM/BED: [address] : [birth year] AGE: 33 SEX: M ATTEND: Brittany Antoine MD ADM AUTHOR: Brianne Antoine MD * ALL edits or amendments must be made on the [employer]idi/computer document * PCP PCP PCP: PCP: No Primary or Family Physician Discharge to: home General Information Date of admission: Observation Start Date: 05/08/19 Date of admission: 05/08/19 Date of discharge: 05/10/19 Hospital course: DC Summary dictated # [id number] Med Rec PCP PCP: PCP: No Primary or Family Physician Med Rec Discharge meds: Stop taking the following medications: LISINOPRIL (ZESTRIL) 40 MG TAB 40 MILLIGRAM ORAL DAILY. [POTASSIUM] (Unknown Strength) Unknown Dose ORAL DAILY. Continue taking these medications: ALBUTEROL (PROAIR HFA 90 MCG/ACT) 90 MCG INHALER 2 PUFF INHALATION RT - EVERY 6 HOURS NEEDED. as needed for SOB FUROSEMIDE (LASIX) 20 MG TAB 40 MILLIGRAM ORAL TWICE DAILY. Qty = 60 This prescription has been renewed CARVEDILOL (COREG) 25 MG TAB 25 MILLIGRAM ORAL TWICE DAILY WITH MEALS. Days = 30 Qty = 60 This prescription has been renewed ACETAMINOPHEN/CODEINE (TYLENOL WITH CODEINE #4 3 00/60 MG) 300 MG-60 MG TAB 1 TABLET ORAL EVERY 6 HOURS NEEDED. as neede d for PAIN Days = 7 Qty = 20 This prescription has been renewed Start taking the following new medications: ASPIRIN EC (ECOTRIN) 81 MG TAB.EC 81 MILLIGRAM ORAL DAILY. Days = 30 Qty = 30 No Refills ATORVASTATIN (LIPITOR) 20 MG TAB 20 MILLIGRAM ORAL BEDTIME. Days = 30 Qty = 30 No Refills NIFEdipine XL (PROCARDIA XL) 30 MG TAB.SA 30 MILLIGRAM ORAL EVERY 12 HOURS. Days = 30 Qty = 60 No Refills POTASSIUM CHLORIDE ER (KLOR-CON 10) 10 MEQ TAB.S A 10 MILLIEQUIVALENT ORAL DAILY. Days = 30 Qty = 30 No Refills Quality Medications Current medication review: I attest that the foregoing medication list in t he medical record is true, accurate, and complete to the best of my knowled ge. BMI Screening > 25 or < 18.5 BMI status/follow-up: abnl BMI, pt to F/U w/PCP Tobacco Use/Counseling Tobacco use/counseling: non tobacco user, no cou nseling needed HTN Screening/Follow-up B/P assess/follow-up: pre-existing hx of HTN at [facility] #:[id number] END OF REPORT 2019-05-09 15:08:00-00:00 [id number] [facility] PATIENT NAME: JORGE GOINS ADMIT DATE: 05/08 ACCOUNT NO: [id number] ROOM NO: V.3079 AGE: 33 REPORT TYPE: OPERATIVE REPORT SEX: M DATE OF : 87 ADMITTING PHYSICIAN:Brianne Antoine MD ATTENDING PHYSICIAN:Brianne Antoine MD OPERATION DATE: 05/09/2019 DATE OF SURGERY: PREOPERATIVE DIAGNOSIS: Cholecystitis. POSTOPERATIVE DIAGNOSIS: Chronic cholecystitis. OPERATIVE PROCEDURE: Laparoscopic cholecystectom y. SURGEON: Paresh Oglesby MD. ANESTHESIA: General. SELF PROPELLED HOT MIX ROLLER OPERATOR: Vahid. INDICATIONS: A 33-year-old male with a several-d ay history of pain in the epigastrium with subjective fever. He was found on ultrasound to have a distended gallbladder with thickened wall. The p atient had a HIDA scan, which showed 1% ejection fraction. He consented for la paroscopic cholecystectomy. Attendant risk has been discussed. PROCEDURE FINDINGS: Cholecystitis. DESCRIPTION OF PROCEDURE: The patient wa s brought to the OR and intubated. The abdomen was prepped with alcohol and draped in s terile fashion. A supraumbilical incision was made and a 10-mm port was inserted and insufflation began. Under direct vision, other port site was placed in the midepigastric and right upper quadrant. Gallbladder is chronically inflamed and distended. Fundus was retracted in cephalad direction. Neck of the gallbladder was retracted laterally. With blunt and sharp dissec tions, we isolated the cystic artery and cystic duct and noted the junction of the common bile duct before triple clipping and divided the cystic duct and cystic artery between clips. Gallbladder was detached from the liver with cautery and taken out through the umbilical incision. Operative field was irrigate d, hemostasis was achieved. All ports were removed under direct vision. Fasc ial closure was with 0 Vicryl and skin was closed with subcuticular stitch. Th e patient was extubated and transported to the recovery room. BLOOD LOSS: 5 mL. Dictated By: Paresh Oglesby MD PATIENT NAME: JORGE GOINS [id number] WT: OP:GONZALO/MAURI/RUI Conf#: [id number]/DID#: [id number] Authenticated by Paresh Oglesby MD On 05/15/2019 0 5:05:04 PM Electronically Signed by Paresh Oglesby MD on 04/27 at 1705 PATIENT NAME: JORGE GOISN [id number] 15:04:00-00:00 [facility] ([facility]) Brief Op Mg REPORT#:[id number] REPORT STATUS: Signed DATE:05/09/19 TIME: 1504 PATIENT: JORGE GOINS UNIT #: [id number] ROOM/BED: 3079-A : 86 AGE: 33 SEX: M ATTEND: Brittany Antoine MD ADM AUTHOR: Paresh Oglesby MD * ALL edits or amendments must be made on the [employer] document * Op/Inv Proc Note - Brief Pre-procedure diagnosis: cholecystitis Post-procedure diagnosis: chronic cholecystitis Procedures performed: lap tayla Primary Surgeon: Mendel Commercial Stripper(s): Vince/Kelly Findings: chronic cholecystitis Complications: none Estimated blood loss in ml's: 5 cc Specimens removed/altered: GB Electronically Signed by Paresh Oglesby MD on 05/09 at 1505 RPT #:[id number] END OF REPORT 2019-05-09 09:16:00-00:00 [facility] ([facility]) Hospitalist Progress Note REPORT#:[id number] REPORT STATUS: Signed DATE:05/09/19 TIME: 915 PATIENT: JORGE GOINS UNIT #: [id number] ROOM/BED: [address] : 86 AGE: 33 SEX: M ATTEND: Brittany Antoine MD ADM AUTHOR: Brianne Antoine MD * ALL edits or amendments must be made on the [employer] document * Subjective Chief Complaint: The patient is scheduled for Lap tayla today . Complains of abdominal pain . BP better . Objective General VS/I O: Vital Signs: Date Time Temp Pulse Resp B/P B/P Pulse O2 O2 F low FiO2 Mean Ox Delivery Rate 05/09 0716 98.4 88 18 153/106 121.4 99 Nasal cannula 05/09 0341 98.2 85 18 143/94 110.6 100 Nasal cannula 05/09 0004 83 133/92 105.7 05/08 2311 97.9 87 16 168/109 0.0 100 Nasal 2 cannula 05/08 2121 98.2 88 166/115 0.0 05/08 1945 Nasal 2.964367 cannula 05/08 193 97.7 86 18 178/115 0.0 100 Nasal cannula 05/08 1858 156/94 114 05/08 1843 181/109 133 05/08 181 200/124 149 05/08 1753 98.1 72 16 178/75 109 100 Nasal 2.00 0000 cannula 05/08 1539 97.6 77 16 191/130 150 100 Nasal 6.0 42863 cannula 05/08 1421 97.9 81 16 181/128 145 100 Nasal 6.0 84024 cannula 05/08 1308 98.1 73 16 171/76 107 100 Nasal 6.00 0000 cannula 24 hour I O ending at 0700: 05/09 0700 05/08 1900 Intake Total 1100.00 Output Total Balance 1100.00 Intake, IV 500.00 Intake, Oral 600 Number Voids 3 Patient 113.182 kg Weight Weight Stated/Reported Measurement Method Patient Weight Weight (lb): Weight (oz): Weight (kg): 113.182 Medications: Active Meds + DC'd Last 24 Hrs Hydralazine HCl 5 MG Q10M PRN PRN IV Hydromorphone HCl 0.5 MG Q10M PRN PRN IV Hydromorphone HCl 1 MG Q10M PRN PRN IV Ondansetron HCl 4 MG ONCE PRN IV Promethazine HCl 12.5 MG PROCEDURE IM (CKD) Labetalol HCl 10 MG Q4H PRN PRN IV Carvedilol 25 MG Q12HR PO Nifedipine 30 MG Q12HR PO Furosemide 40 MG BID PO Famotidine 20 MG BID AC PO Hydralazine HCl 10 MG Q6H PRN PRN IV Morphine Sulfate 2 MG Q4H PRN PRN IV Nifedipine 60 MG ONCE ONE PO (DC) Piperacillin Sod/Tazobactam Sod 3.375 G Q8H IV Sodium Chloride 100 ML Acetaminophen 650 MG Q4H PRN PRN PO Morphine Sulfate 4 MG Q4H PRN PRN IV (DC) Ondansetron HCl 4 MG Q6H PRN PRN IV Sodium Chloride 1,000 ML .Q10H IV (DC) Ondansetron HCl 4 MG X1ED PRN PRN IV Physical Exam General appearance: alert, awake, oriented Head/Eyes: atraumatic, clear cornea, EOMI ENT: moist mucosal membranes Neck: non-tender Cardiovascular: normal heart sounds, regular rat e rhythm Respiratory: aerating well, clear to auscultatio n Abdomen: tenderness (upper abdomen tender), soft Extremities: moves all, no calf tenderness 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, oriented X 3, CNII-XII intact, normal speech, no motor deficits Skin: dry, intact Psychiatry: normal affect, normal judgment/insig ht Results Findings/Data: Laboratory Tests 05/09 05/09 0507 0507 Chemistry Sodium (136 - 145 mmol/L) 139 Potassium (3.5 - 5.1 mmol/L) 4.2 Chloride (98 - 107 mmol/L) 105.0 Carbon Dioxide (21 - 32 mmol/L) 26.0 Anion Gap (10 - 20) 12.2 BUN (7 - 18 mg/dL) 36 H Creatinine (0.7 - 1.3 mg/dL) 1.70 H Glomerular Filtr Rate (>=60 mL/min) 57 BUN/Creatinine Ratio (10 - 20) 21.6 H Glucose (74 - 106 mg/dL) 114 H Hemoglobin A1c (4.8 - 6.0 % HbA1) 5.9 Estim Average Glucose (MG/DL) 123 Calcium (8.5 - 10.1 mg/dL) 8.3 L Total Bilirubin (0.0 - 1.0 mg/dL) 1.20 H AST (15 - 37 IUnit/L) 23 ALT (12 - 78 IUnit/L) 30 Total Alk Phosphatase (45 - 117 IUnit/L) 114 Total Protein (6.4 - 8.2 gram/dL) 7.0 Albumin (3.4 - 5.0 g/dL) 2.8 L Globulin (2.7 - 4.2 gram/dL) 4.2 Albumin/Globulin Ratio (0.75 - 1.50) 0.7 L Laboratory Tests 05/09 0507 Hematology WBC (4.5 - 12.5 K/mm3) 9.4 RBC (4.0 - 5.8 mill/mm3) 4.90 Hgb (13.0 - 17.5 gram/dL) 13.2 Hct (42.0 - 52.0 %) 42.6 MCV (80 - 98 fL) 86.9 MCH (27.0 - 33.0 picogram) 26.9 L MCHC (33.0 - 36.0 gram/dL) 31.0 L RDW (11.6 - 16.2 %) 15.4 RDW Std Deviation (37.0 - 51.0 fL) 48.9 Plt Count (150 - 450 K/mm3) 402 MPV (6.7 - 11.0 fL) 10.4 Neut % (Auto) (39.0 - 69.0 %) 75.5 H Lymph % (Auto) (25.0 - 55.0 %) 13.5 L Citrus % (Auto) (0.0 - 10.0 %) 9.1 Eos % (Auto) (0.0 - 5.0 %) 1.1 Baso % (Auto) (0.0 - 1.0 %) 0.3 Neut # (Auto) (1.8 - 7.7 K/mm3) 7.08 Lymph # (Auto) (1.0 - 5.0 K/mm3) 1.27 Citrus # (Auto) (0 - 0.8 K/mm3) 0.85 H Eos # (Auto) (0.0 - 0.5 K/mm3) 0.10 Baso # (Auto) (0.0 - 0.2 K/mm3) 0.03 Nucleated RBC % (0 - 0 %) 0.0 Nucleated RBCs # (Man) (0.0 - 0.1 K/mm3) 0.00 Laboratory Tests 05/08 2215 Urines Urine Color (YELLOW) COLORLESS L Urine Appearance (CLEAR) CLEAR Urine pH (5.0 - 8.0) 6.0 Ur Specific Commerce (1.001 - 1.035) 1.008 Urine Protein (NEGATIVE mg/dL) NEGATIVE Urine Glucose (UA) (NEGATIVE mg/dL) NEGATIVE Urine Ketones (NEGATIVE mg/dL) NEGATIVE Urine Blood (NEGATIVE mg/dL) Negative Urine Nitrite (NEGATIVE) NEGATIVE Urine Bilirubin (NEGATIVE mg/dL) NEGATIVE Urine Urobilinogen (NEGATIVE mg/dL) Normal Ur Leukocyte Esterase (NEGATIVE Chip/uL) NEGATIV E Urine RBC (0 - 5 #/HPF) 0-2 Urine WBC (0 - 5 per HPF) 0-5 Ur Epithelial Cells (FEW per HPF) FEW Urine Bacteria (NONE per HPF) NONE SEEN Radiology data: Recent Impressions: RADIOLOGY - XR CHEST 1 V 05/08 1212 Report Impression - Status: SIGNED Entered: 05/08/2019 1242 IMPRESSION: No acute infiltrates, effusion or congestion. Impression By: [email or web address] - Thony Doyle M.D. NUCLEAR MEDICINE - HEPA IMAG INCL GB W PHA 05/09 0900 Report Impression - Status: SIGNED Entered: 05/09/2019 1059 IMPRESSION: Markedly depressed ejection fraction of 1% may s uggest gallbladder dysmotility and/or biliary dyskinesia. Impression By: [email or web address] Keyon Doyle M.D. Diagnosis, Assessment Plan Consultants: surgery Free Text DxA P Notes Free Text DxA P Notes: 33 year old male with 1. Abdominal pain , possible cholecystitis , HIDA scan positive , scheduled for Lap tayla today 2. HTN, Nifedipine , coreg, monitor , improving 3. CKD, stage 3 , monitor 4. History of CHF, ECHO pending , continue Lasix 5. DVT ppx 6. Obesity, advised on weight loss Code status, Full code NOK, Brother Quality Medications Current medication review: I attest that the foregoing medication list in t he medical record is true, accurate, and complete to the best of my knowled ge. BMI Screening > 25 or < 18.5 BMI status/follow-up: abnl BMI, pt to F/U w/PCP Tobacco Use/Counseling Tobacco use/counseling: non tobacco user, no cou nseling needed HTN Screening/Follow-up B/P assess/follow-up: pre-existing hx of HTN at 1204 RPT #:[id number] END OF REPORT 2019-05-09 07:23:00-00:00 [facility] ([facility]) Pre-Anesthesia Evaluation REPORT#:[id number] REPORT STATUS: Signed DATE:05/09/19 TIME: 722 PATIENT: JORGE GOINS UNIT #: [id number] ROOM/BED: [address] : 86 AGE: 33 SEX: M ATTEND: Brittany Antoine MD ADM AUTHOR: Kenneth Motley MD * ALL edits or amendments must be made on the el Digital [employer]/computer document * Pre-Anesthesia Evaluation Pre-Anesthesia Evaluation ORM Surgeries: Surgery Date and Time: 05/09/2019 1230 Proposed Primary Procedure: LAPAROSCOPIC CHOLEC YSTECTOMY POSS OPEN Pre-op diagnosis: ac cholecystitis Anesthesia plan discussed: [x] General [] Spinal [] Epidural [] Nerve Block /IV Regional [] MAC - Medical Necessity: [] Therapeutic drug monitoring secondary or int egrall to propofol use [] Strong possibility of expansion of procedure Successful procedure without MAC unlikely due to : [] History of severe anxiety, panic attacks, an d/or phobias [] History of low pain threshold [] History of chronic severe pain [] Other - See patient's history/diagnosis/anjelica rbidities ASA Physical Status: 3 Medications: Home Medications: Medication Dose/Rte/Freq Days Qty Entered Last Max Daily Dose Reviewed FUROSEMIDE (LASIX) 40 MG PO BID 05/31/1805/08 Strength: 20 MG TAB 2147 1035 LISINOPRIL (ZESTRIL) 40 MG PO DAILY 03/17/17 1 07/08/18 Strength: 40 MG TAB 38 1940 [POTASSIUM] (Unknown Dose) PO 05/08/19 05/08/19 Strength: (Unknown DAILY 1942 1942 Strength) ACETAMINOPHEN/CODEINE 1 TAB PO 05/08/19 9 (TYLENOL WITH CODEINE Q6H PRN PRN PAIN 1942 43 #4 300/60 MG) Strength: 300 MG-60 MG TAB ALBUTEROL 2 PUFF INH 05/08/19 05/08/19 (PROAIR HFA 90 MCG/ACT) RTQ6H PRN PRN SOB 1945 1945 Strength: 90 MCG INHALER CARVEDILOL (COREG) 25 MG PO BID MEALS 05/08/19 05/08/19 Strength: 25 MG TAB 1854 1941 Current Hospital Medications: Anti-Infective Agents Sig/Ronan Start time Last Medication Dose Route Stop Time Status Admin Piperacillin Sod/ 3.375 G Q8H 05/08 1515 AC Tazobactam Sod IV 05/13 1514 0621 (ZOSYN) Sodium Chloride 100 ML (SODIUM CHLORIDE) Ceftriaxone Sodium 1,000 MG X1ED STA 05/08 1158 DC 05/08 (ROCEPHIN) IV 05/08 1200 1208 Sodium Chloride 10 ML (SODIUM CHLORIDE 0.9%) Cardiovascular Drugs Sig/Ronan Start time Last Medication Dose Route Stop Time Status Admin Labetalol HCl 10 MG Q4H PRN PRN 05/085 AC 05/08 (LABETOLOL HCL) IV 06/07 221 2331 Carvedilol 25 MG Q12HR 05/08 2100 AC (COREG 25MG TAB) PO 06/07 2059 Nifedipine 30 MG Q12HR 05/08 2100 AC 05/08 (NIFEdipine XL 30MG) PO 06/07 Hydralazine HCl 10 MG Q6H PRN PRN 05/08 1515 AC 05/08 (hydrALAZINE HCL) IV 06/07 1514 1820 Nifedipine 60 MG ONCE ONE 05/08 1515 DC 05/08 (NIFEdipine XL 60MG) PO 05/08 1516 1538 Central Nervous System Agents Sig/Ronan Start time Last Medication Dose Route Stop Time Status Admin Morphine Sulfate 2 MG Q4H PRN PRN 05/08 1515 AC 05/08 (morphine SULFATE) IV 05/13 1329 2225 Acetaminophen 650 MG Q4H PRN PRN 05/08 1330 AC 05/08 (TYLENOL) PO 05/25 0118 2000 Morphine Sulfate 4 MG Q4H PRN PRN 05/08 1330 DC (morphine SULFATE) IV 05/09 0118 Morphine Sulfate 4 MG X1ED STA 05/08 1200 DC (morphine SULFATE) IV 05/08 1201 1204 Electrolytic, Caloric, And Camila Sig/Ronan Start time Last Medication Dose Route Stop Time Status Admin Furosemide 40 MG BID 05/08 1700 AC 05/08 (FUROSEMIDE) PO 06/07 1659 1820 Sodium Chloride 1,000 ML .Q10H 05/08 1330 DC (SODIUM CHLORIDE IV 05/25 0118 1410 0.9%) Sodium Chloride 1,000 ML X1ED STA 05/08 1025 DC 05/08 (SODIUM CHLORIDE IV 05/08 1124 1154 0.9%) Gastrointestinal Drugs Sig/Ronan Start time Last Medication Dose Route Stop Time Status Admin Famotidine 20 MG BID AC 05/08 1600 AC 05/08 (PEPCID TAB) PO 06/07 1559 1538 Ondansetron HCl 4 MG Q6H PRN PRN 05/08 1330 AC (ONDANSETRON HCL) IV 05/25 0118 Ondansetron HCl 4 MG X1ED PRN PRN 05/08 1030 AC (ONDANSETRON HCL) IV Additional information: npo adeq History Hx of anesthetic problems: Hx of anesthetic problems: n/a Past medical history: Cardiac: HTN, CHF Renal: CRF Endocrine: HLD Past surgical history: denies PSH Past Family History: MOTHER FATHER MOTHER Family History: Diabetes Relation not specified for: Family History: Diabetes Family History: Heart disease Allergies: Coded Allergies: Iodine and Iodide Containing Produc (Severe, HIV ES 05/08/19) shellfish derived (Intermediate, RASH 05/08/19) Physical Exam Vital signs: Last Documented: Result Date Time Pulse Ox 99 05/09 716 B/P 153/106 05/09 716 B/P Mean 121.4 05/09 716 O2 Delivery Nasal cannula 05/09 716 Temp 36.9 05/09 716 Pulse 88 05/09 716 Resp 18 05/09 716 O2 Flow Rate 2 05/08 231 Airway: adequate Mallampati Class: III Respiratory: clear to auscultation Cardiovascular: regular rate and rhythm Additional information: 180 cm 113 kg Results Findings/Data: Laboratory Tests 05/09/19 0507: [Embedded Image Not Available] 05/08/19 1135: [Embedded Image Not Available] Additional Information Risks/benefits/consents: The following plan including risks/benefits/alternatives/complications discussed with accepted by: [x] Patient []Parent [] Guardian: [] [employer] Work[employer] GETA for ASA 3 IP LC Electronically Signed by Kenneth Motley MD on 05/09 at 1330 RPT #:[id number] END OF REPORT 2019-05-08 15:18:00-00:00 [id number] [facility] PATIENT NAME: JORGE GOINS ADMIT DATE: 05/08 ACCOUNT NO: [id number] ROOM NO: [facility] AGE: 33 REPORT TYPE: CONSULTATION REPORT SEX: M DATE OF : 87 ADMITTING PHYSICIAN:Brianne Antoine MD ATTENDING PHYSICIAN:Brianne Antoine MD CONSULTATION DATE: 05/08/2019 CONSULTING PHYSICIAN: Paresh Oglesby MD CHIEF COMPLAINT: Abdominal pain. HISTORY OF PRESENT ILLNESS: The patient is a 33- year-old male with 1-week history of epigastric abdomi nal pain radiating down to the right upper quadrant with no nausea and vomiting. The patient states the pain has intensified over the last few days with some decreased appetite. The patient denies fever, chills or diarrhea. PAST MEDICAL HISTORY: Positive for chronic renal insufficiency, hypertension. PAST SURGICAL HISTORY: Negative. ALLERGIES: HE HAS ALLERGIC REACTION TO CODEINE A ND IODINE. SOCIAL HABITS: He denies smoking or alcohol abus e. REVIEW OF SYSTEMS: No chest pain, shortness of b reath or cough. PHYSICAL EXAMINATION: VITAL SIGNS: The patient's vital signs are stabl e, mildly hypertensive with blood pressure 190/120, and afebrile. GENERAL: He is awake, alert, in [id number] discomfort. HEENT: Sclerae nonicteric. NECK: Supple. LUNGS: Clear. HEART: Regular rate and rhythm. ABDOMEN: Soft with mild guar ding in epigastric and right upper quadrant without any rebound tenderness. EXTREMITIES: Without cyanosis or edema. LABORATORY DATA: White cell count 6.8, hemoglobi n of 12.6. Creatinine of 1.9. Liver function test, bilirubin of 1.5 with alkal ine phosphatase of 115. DIAGNOSTIC DATA: Ultrasound showed severely thic kened gallbladder wall with maximal thickness of 1.5 cm. No gallstone. ASSESSMENT: Epigastric pain with gallbladder dis tention and thickened wall. PLAN: HIDA scan to confirm cholecystitis . We will proceed with cholecystectomy PATIENT NAME: JORGE GOINS [id number] if positive. Dictated By: Paresh Oglesby MD WT: CON:GONZALO/MAURI/RUI Conf#: [id number]/DID#: [id number] Authenticated and Edited by Paresh Oglesby MD On 07/08/18 6:23:02 PM Electronically Signed by Paresh Oglesby MD on 04/26 09/11 at 1826 PATIENT NAME: JORGE GOINS [id number] [id number] 13:26:00-00:00 [facility] ([facility]) Hospitalist History Physical REPORT#:[id number] REPORT STATUS: Signed DATE:05/08/19 TIME: 1326 PATIENT: JORGE GOINS UNIT #: [id number] ROOM/BED: [facility]-9 : 87 AGE: 33 SEX: M ATTEND: Brittany Antoine MD ADM AUTHOR: Brianne Antoine MD * ALL edits or amendments must be made on the el [employer]/computer document * History of Present Illness HPI Chief complaint: abdominal pain PCP: PCP: No Primary or Family Physician HPI: The patient is a 33 year old male with history o f HTN, HLD, CHF , medication noncompliance , Obesity pres ented to the ER with upper abdominal pain , nausea, vomiting starting yesterday . Upon presentation here , patient had imaging done that showed possible chlolec ystitis , general surgery was consulted from ER. BP has been elevated from ER. Patient has n ot been compliant with his medications at Home . Informant/historian: patient History Past medical history: Reports: Congestive heart failure, Hypertension. Additional medical history: Obesity Additional surgical history: No prior surgeries Family history: Reports: Diabetes, Hypertension. Alcohol use: Denies EtOH use Drug use: Denies recreational drugs Smoking status for patients 13 years old or olde r: Never Smoker Other social history: Local resident Medication/Allergy-Vaccine Hx Home Medications: FUROSEMIDE (LASIX) 40 MG PO BID LISINOPRIL (ZESTRIL) 40 MG PO BID Allergies: Coded Allergies: Iodine and Iodide Containing Produc (Severe, HIV ES 05/08/19) shellfish derived (Intermediate, RASH 05/08/19) codeine (UNKNOWN 05/08/19) Ambulatory status: Independent Review of Systems Constitutional: Denies: chills, fatigue, fever, generalized weak ness, lethargy. Skin: Denies: abrasion, bruising, contusion, diaphores is, ecchymosis. Allergy/Immun: Denies: allergic reaction, anaphylaxis, itching, rhinorrhea. Eyes: Denies: discharge, itching. ENT: Denies: ear drainage, ear ringing, earache, hear ing loss, nose bleeding. Respiratory: Denies: COATES (dyspnea on exertion), hemoptysis, n on productive cough, parox nocturnal dyspnea, pleuritic pain. Cardiovascular: Denies: chest pain, COATES (dyspnea on exer tion), edema, orthopnea, palpitations. GI: Reports: abdominal pain, nausea, vomiting. : Denies: dysuria, flank pain, frequency. Musculoskeletal: Denies: arthritis, extremity pain, extremity swe lling, joint swelling. Heme: Denies: adenopathy, bleeding, bruising. Endocrine: Denies: cold intolerance, heat intolerance, poly dipsia, polyphagia. Neuro: Denies: bladder dysfunction, bowel dysfunction, confusion, dizziness, gait problem, headache, numbness. Psych: Denies: agitation, anxiety, auditory hallucinati on, change in mental status, confusion, delusional, depression, homicidal cornelio ation, suicidal ideation. Objective General VS/I O: Vital Signs: Date Time Temp Pulse Resp B/P B/P Pulse O2 O2 F low FiO2 Mean Ox Delivery Rate 05/08 1539 97.6 77 16 191/130 150 100 Nasal 6.0 86878 cannula 05/08 1421 97.9 81 16 181/128 145 100 Nasal 6. 304853 cannula 05/08 1308 98.1 73 16 171/76 107 100 Nasal 6.00 0000 cannula 05/08 1155 98.6 79 16 151/110 123 100 Nasal 6.0 04417 cannula 05/08 1021 98.4 75 16 147/108 121 100 Room air Patient Weight Weight (lb): Weight (oz): Weight (kg): 113.182 Medications: Active Meds + DC'd Last 24 Hrs Carvedilol 25 MG Q12HR PO Nifedipine 30 MG Q12HR PO Furosemide 40 MG BID PO Famotidine 20 MG BID AC PO Hydralazine HCl 10 MG Q6H PRN PRN IV Morphine Sulfate 2 MG Q4H PRN PRN IV Nifedipine 60 MG ONCE ONE PO (DC) Piperacillin Sod/Tazobactam Sod 3.375 G Q8H IV Sodium Chloride 100 ML Acetaminophen 650 MG Q4H PRN PRN PO Morphine Sulfate 4 MG Q4H PRN PRN IV (DC) Ondansetron HCl 4 MG Q6H PRN PRN IV Sodium Chloride 1,000 ML .Q10H IV Morphine Sulfate 4 MG X1ED STA IV (DC) Ceftriaxone Sodium 1,000 MG X1ED STA IV (DC) Sodium Chloride 10 ML Ondansetron HCl 4 MG X1ED PRN PRN IV Sodium Chloride 1,000 ML X1ED STA IV (DC) Physical Exam General appearance: alert, awake, oriented Head/Eyes: atraumatic, clear cornea, EOMI ENT: moist mucosal membranes Neck: non-tender Cardiovascular: normal heart sounds, regular rat e rhythm Respiratory: aerating well, clear to auscultatio n Abdomen: tenderness (upper abdomen tender), soft Extremities: moves all, no calf tenderness 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, oriented X 3, CNII-XII intact, normal speech, no motor deficits Skin: dry, intact Psychiatry: normal affect, normal judgment/insig ht Results Findings/Data: Laboratory Tests 05/08 1135 Chemistry Sodium (136 - 145 mmol/L) 137 Potassium (3.5 - 5.1 mmol/L) 4.4 Chloride (98 - 107 mmol/L) 104.0 Carbon Dioxide (21 - 32 mmol/L) 26.0 Anion Gap (10 - 20) 11.4 BUN (7 - 18 mg/dL) 37 H Creatinine (0.7 - 1.3 mg/dL) 1.90 H Glomerular Filtr Rate (>=60 mL/min) 50 BUN/Creatinine Ratio (10 - 20) 19.3 Glucose (74 - 106 mg/dL) 112 H Calcium (8.5 - 10.1 mg/dL) 8.7 Total Bilirubin (0.0 - 1.0 mg/dL) 1.50 H Direct Bilirubin (0.0 - 0.20 mg/dL) 0.71 H AST (15 - 37 IUnit/L) 35 ALT (12 - 78 IUnit/L) 32 Total Alk Phosphatase (45 - 117 IUnit/L) 115 Total Protein (6.4 - 8.2 gram/dL) 7.4 Albumin (3.4 - 5.0 g/dL) 3.2 L Globulin (2.7 - 4.2 gram/dL) 4.2 Albumin/Globulin Ratio (0.75 - 1.50) 0.8 Lipase (73.0 - 393.0 U/L) 40 L Laboratory Tests 05/08 1135 Hematology WBC (4.5 - 12.5 K/mm3) 6.8 RBC (4.0 - 5.8 mill/mm3) 4.65 Hgb (13.0 - 17.5 gram/dL) 12.6 L Hct (42.0 - 52.0 %) 40.8 L MCV (80 - 98 fL) 87.7 MCH (27.0 - 33.0 picogram) 27.1 MCHC (33.0 - 36.0 gram/dL) 30.9 L RDW (11.6 - 16.2 %) 15.3 Plt Count (150 - 450 K/mm3) 343 MPV (6.7 - 11.0 fL) 10.2 Microbiology Date/Time Procedure - Status Source Growth 05/08 1039 Influenza Virus Type B Antigen - COM P NASAL 05/08 1039 Influenza Virus Type A Antigen - CO MP NASAL Diagnosis, Assessment Plan Consultants: surgery Code Status/Resusc. Discussion Resuscitation discussion: Discussed with: patient Code status: full code Free Text DxA P Notes Free Text DxA P Notes: 33 year old male with 1. Abdominal pain , possible cholecystitis , HID A scan pending 2. HTN, Started on Nifedipine , coreg, monitor 3. CKD, stage 3 , monitor 4. History of CHF, check ECHO, continue Lasix 5. DVT ppx 6. Obesity, advised on weight loss Code status, Full code NOK, Brother Quality Medications Current medication review: I attest that the foregoing medication list in t he medical record is true, accurate, and complete to the best of my knowled ge. BMI Screening > 25 or < 18.5 Patient's BMI: Current BMI: 34.8 BMI status/follow-up: abnl BMI, pt to F/U w/PCP Tobacco Use/Counseling Tobacco use/counseling: non tobacco user, no cou nseling needed HTN Screening/Follow-up Last documented vitals: Last Documented: Result Date Time Pulse Ox 100 05/08 1539 B/P 191/130 05/08 1539 B/P Mean 150 05/08 1539 O2 Delivery Nasal cannula 05/08 153 O2 Flow Rate 6.367213 05/08 1539 Temp 97.6 05/08 1539 Pulse 77 05/08 1539 Resp 16 05/08 1539 B/P assess/follow-up: pre-existing hx of HTN at 1701 RPT #:[id number] END OF REPORT 2019-05-08 10:34:00-00:00 [facility] ([facility]) EMERGENCY PROVIDER REPORT REPORT#:[id number] REPORT STATUS: Signed DATE:05/08/19 TIME: 1034 PATIENT: JORGE GOINS UNIT #: [id number] [facility] AGE: 33 SEX: M PCP PHYS: No Primary or Family Ph ysician SERVICE AUTHOR: Bowen Hairston DO * ALL edits or amendments must be made on the rimidi/computer document * HPI-Abd Pain M Under 40 General Confirmed Patient Yes Initial Greet Date/Time 05/08/19 1021 Presentation Chief Complaint Abdominal pain Hx Obtained From Patient Sudden in Onset? No Onset Occurred One week ago Symptom Duration Since onset Progression since Onset Unchanged Caused by No trauma by history Location Epigastric, RUQ Quality Aching Radiation Does not radiate. Migration/Movement None Severity: Onset Mild Severity: Current Mild Associated with Reports: Chills, Diarrhea, F ever, Nausea, Vomiting. Denies: Anorexia, Back pain , Chest pain, Constipation, Melena, Shortness of breath, Urinary frequency, Urinary retention, Urinary tract symptoms. Exacerbated by Nothing Relieved by Nothing Free Text HPI Notes Free Text HPI Notes The patient is a 33-year-old male chief complaint of abdominal pain. He states this started about 1 week ago it has been persis tent and unchanged to begin. Pain is described as aching. Is located in his e pigastric and right upper quadrant area. No aggravating or relieving facto rs. Complains of associated nonbloody emesis, nonbloody diarrhea, nausea, chills, subjective fever and body aches. No additional complaints including melena , hematochezia, constipation, anorexia, rash, swelling, shortness of breath, n hany pain, chest pain. Risk-Abd Pain M Under 40 )( Torsion Risk factors reviewed Review of Systems ROS Statements Complete sys rev neg except as marked. Focused Review of Systems Constitutional Reports: Chills, Fever. Denies: Fatigue, Letharg y, Malaise, Recent wt loss, Weakness - generalized. Cardiovascular Denies: Chest pain, Dyspnea on exertion, Edema, Orthopnea, Palpitations, Parox nocturnal dyspnea, Syncope. GI Reports: Abdominal pain, Diarrhea, Nause a, Vomiting. Denies: Anorexia, Bloody/ tarry stool, Constipation, D ysphagia, Hematemesis, Hematochezia, Mucousy stool, Melena, Rectal pain. Musculoskeletal Reports: Myalgia. Denies: Back pain. Past Medical History - Adult Stated Complaint FLU LIKE SYMPTOMS, ABDOMINAL PA IN, LIGHT HEADED Allergies Coded Allergies: Iodine and Iodide Containing Produc (Severe, HIV ES 05/08/19) shellfish derived (Intermediate, RASH 05/08/19) codeine (UNKNOWN 05/08/19) Home Medications Reported Medications LISINOPRIL (ZESTRIL) 40 MG PO BID FUROSEMIDE (LASIX) 40 MG PO BID Past Medical History: Reports: Hypertension. Denies: Congestive heart failure. Additional Surgical History NONE Family History: Reports: Diabetes, Hypertension. Alcohol Use Denies EtOH use Drug Use Denies recreational drugs Smoking status for patients 13 years old or olde r: Never Smoker Other Social History Local resident Physical Exam Vital Signs Vital Signs First Documented: Result Date Time Pulse Ox 100 05/08 1021 B/P 147/108 05/08 1021 B/P Mean 121 05/08 1021 O2 Delivery Room air 05/08 1021 Temp 36.9 05/08 1021 Pulse 75 05/08 1021 Resp 16 05/08 1021 O2 Flow Rate 6.459585 05/08 1155 Last Documented: Result Date Time Pulse Ox 100 05/08 1308 B/P 171/76 05/08 1308 B/P Mean 107 05/08 1308 O2 Delivery Nasal cannula 05/08 1308 O2 Flow Rate 6.286737 05/08 1308 Temp 36.7 05/08 1308 Pulse 73 05/08 1308 Resp 16 05/08 1308 Review of Vital Signs Reviewed Focused PE General/Const General/Const Awake, Alert, Well appearing MS Head Head Normocephalic Eyes Eyes PERRL Ears/Nose/Throat Ears/Nose/Throat Airway patent, Mucous membrane s moist, Pharynx NL Resp/Chest Respiratory/Chest Breath sounds NL, Breath soun ds = bilat, No respiratory distress, No rales, No rhonchi, No wheezing Cardiovascular Cardiovascular Heart rate NL, Regular rhythm, H eart sounds NL, Peripheral circulation NL Abdomen/GI Abdomen/GI Soft, McBurney's non-tender, No guar ding, No rebound, BS normoactive, No distention, No hernia, No palpab le mass Tenderness/Guarding/Rebound Tender epigastric. MS Back Back Inspection NL, Non-tender, No CVA tenderne ss Skin Skin Color NL, Warm, Dry, Turgor NL Genitourinary Male Genitourinary Inspection NL, Penis NL, No penile discharge, Testes NL, Epididymis NL, No mass, No hernia, No lesions or rash Neurologic Neurologic Oriented X3, Speech NL, No motor def icits, No sensory deficits Additional PE MS Upper Extrem Upper Extremity/MS Atraumatic, Inspection NL, N eurologic intact, Vascular intact MS Wrist/Hand Wrist/Hand Atraumatic, Inspection NL, Neurologi c intact, Vascular intact Interpretation Diagnostics Lab Results Interpretation Results Laboratory Tests 05/08/19 1135: [Embedded Image Not Available] Laboratory Tests: 05/085 Chemistry Sodium (136 - 145 mmol/L) 137 Potassium (3.5 - 5.1 mmol/L) 4.4 Chloride (98 - 107 mmol/L) 104.0 Carbon Dioxide (21 - 32 mmol/L) 26.0 Anion Gap (10 - 20) 11.4 BUN (7 - 18 mg/dL) 37 H Creatinine (0.7 - 1.3 mg/dL) 1.90 H Glomerular Filtr Rate (>=60 mL/min) 50 BUN/Creatinine Ratio (10 - 20) 19.3 Glucose (74 - 106 mg/dL) 112 H Calcium (8.5 - 10.1 mg/dL) 8.7 Total Bilirubin (0.0 - 1.0 mg/dL) 1.50 H Direct Bilirubin (0.0 - 0.20 mg/dL) 0.71 H AST (15 - 37 IUnit/L) 35 ALT (12 - 78 IUnit/L) 32 Total Alk Phosphatase (45 - 117 IUnit/L) 115 Total Protein (6.4 - 8.2 gram/dL) 7.4 Albumin (3.4 - 5.0 g/dL) 3.2 L Globulin (2.7 - 4.2 gram/dL) 4.2 Albumin/Globulin Ratio (0.75 - 1.50) 0.8 Lipase (73.0 - 393.0 U/L) 40 L Hematology WBC (4.5 - 12.5 K/mm3) 6.8 RBC (4.0 - 5.8 mill/mm3) 4.65 Hgb (13.0 - 17.5 gram/dL) 12.6 L Hct (42.0 - 52.0 %) 40.8 L MCV (80 - 98 fL) 87.7 MCH (27.0 - 33.0 picogram) 27.1 MCHC (33.0 - 36.0 gram/dL) 30.9 L RDW (11.6 - 16.2 %) 15.3 Plt Count (150 - 450 K/mm3) 343 MPV (6.7 - 11.0 fL) 10.2 Microbiology: Date/Time Procedure - Status Source Growth 05/08 1039 Influenza Virus Type B Antigen - COM P NASAL 05/08 1039 Influenza Virus Type A Antigen - COM P NASAL Recent Impressions: ULTRASOUND - US ABDOMEN LTD 05/08 1100 Report Impression - Status: SIGNED Entered: 05/08/2019 1156 IMPRESSION: No gallstones with severely thickened anterior g allbladder wall at 1.5 cm may suggest acalculus cholecystitis. Chronic medical renal disease. Hepatomegaly. Impression By: Bettina Doyle M.D. RADIOLOGY - XR CHEST 1 V 05/08 1212 Report Impression - Status: SIGNED Entered: 05/08/2019 1242 IMPRESSION: No acute infiltrates, effusion or congestion. Impression By: Bettina Doyle M.D. ECG #1 Interpretation Text/Dict Note Normal Sinus Rhythm Rate 73 Normal [place] No acute ST Segment changes Nonspecific T wave changes No heart blocks Date 05/08/19 Time 1031 Interpreted by ED physician Re-Evaluation MDM )( Re-Evaluation/Progress #1 Text/Dict Note Pain improved after medication. No acute complai nts. Physical exam improved. Abdomen without signs of peritonitis. Time of Re-Eval 1300 )( Re-Eval Status Improved Re-Eval Abdomen Soft, Non-tender, No guarding, N o rebound, No distention ED Course Medication(s) Ordered Medication(s) Ordered: Anti-Infective Agents Sig/Ronan Start time Last Medication Dose Route Stop Time Status Admin Ceftriaxone Sodium 1,000 MG X1ED STA 05/08 1158 DC 05/08 Sodium Chloride 10 ML IV 05/08 1200 1208 Central Nervous System Agents Sig/Ronan Start time Last Medication Dose Route Stop Time Status Admin Acetaminophen 650 MG Q4H PRN PRN 05/08 1330 AC PO 05/09 0118 Morphine Sulfate 4 MG Q4H PRN PRN 05/08 1330 AC IV 05/09 0118 Morphine Sulfate 4 MG X1ED STA 05/08 1200 DC IV 05/08 1201 1204 Electrolytic, Caloric, And Camila Sig/Ronan Start time Last Medication Dose Route Stop Time Status Admin Sodium Chloride 1,000 ML .Q10H 05/08 1330 AC IV 05/09 0118 Sodium Chloride 1,000 ML X1ED STA 05/08 1025 D C 05/08 IV 05/08 1124 1154 Gastrointestinal Drugs Sig/Ronan Start time Last Medication Dose Route Stop Time Status Admin Ondansetron HCl 4 MG Q6H PRN PRN 05/08 1330 AC IV 05/09 0118 Ondansetron HCl 4 MG X1ED PRN PRN 05/08 1030 AC IV Patient Discharge Departure Vital Signs/Condition Vital Signs First Documented: Result Date Time Pulse Ox 100 05/08 1021 B/P 147/108 05/08 1021 B/P Mean 121 05/08 1021 O2 Delivery Room air 05/08 1021 Temp 36.9 05/08 1021 Pulse 75 05/08 1021 Resp 16 05/08 1021 O2 Flow Rate 6.794933 05/08 1155 Last Documented: Result Date Time Pulse Ox 100 05/08 1308 B/P 171/76 05/08 1308 B/P Mean 107 05/08 1308 O2 Delivery Nasal cannula 05/08 1308 O2 Flow Rate 6.711065 05/08 1308 Temp 36.7 05/08 1308 Pulse 73 05/08 1308 Resp 16 05/08 1308 All vital signs available at the time of this en try have been reviewed. Clinical Impression Clinical Impression Primary Impression: Cholecystitis Secondary Impressions: JENNIFER (acute kidney injury) Disposition Decision Admit Admit Physician Name Brianne Antoine MD Admit Physician Hospitalist Request Time 1312 Request Date 05/08/19 )( Admission Accepts Yes )( Accepted Time 1312 )( Accepted Date 05/08/19 Call Information will see patient, agrees with eval, agrees with plan Discharge/Care Plan Counseled Regarding Diagnosi s, Lab results, Imaging studies, Need for admission Electronically Signed by Bowen Hairston DO on 04/26 09/11 at 1503 RPT #:[id number] END OF REPORT 2018-10-28 12:47:00-00:[address] [facility] ([facility]) EMERGENCY PROVIDER REPORT REPORT#:[id number] REPORT STATUS: Signed DATE:10/28/18 TIME: 1247 PATIENT: JORGE GOINS UNIT #: [id number] ROOM/BED: AGE: 33 SEX: M PCP PHYS: No Primary or Family Ph ysician SERVICE AUTHOR: Zhao Guevara MD * ALL edits or amendments must be made on the rimidi/computer document * HPI-General Illness Free Text HPI Notes Free Text HPI Notes patient here for elevated BP. States that he ran out of meds. Pt also having GERD symptoms. General Confirmed Patient Yes Initial Greet Date/Time 10/28/18 1158 Presentation Chief Complaint __ (see above ) Hx Obtained From Patient Sudden in Onset? No Onset Occurred Chronic Symptom Duration Chronic Progression since Onset Unchanged, Constant Caused by No trauma by history Severity: Current No pain currently Associated with Denies: Abdominal pain, Anorexia, Aura, Bleeding , Bruising, Chest pain, Congestion, Cough, Diaphoresis, Difficulty breat mirna, Difficulty swallowing, Discharge, Dizziness, Fever, Headache, Inability to bear weight, Itching, Joint pain, Loss of consciousness, Nasal discharge, Na usea, Neck pain, Numb extremities, Off balance, Pain, Pain on walking, Rash, Shortness of breath, Speech abnormal, Syncope, Vision change, Vomitin g, Weak extremity, Weakness. Associated Other Pt denies other symptoms Exacerbated by Nothing Relieved by Nothing Context Related History Reports: GERD. Denies: Asthma, Autoimmune disord er, Cancer, COPD, Coronary artery disease, Depression, Diabetes hieu litus, Drug dependence, Drug use/abuse suspected, Hernia, Hiatal hernia, Immunodeficien cy, Malignancy history, Psychiatric history, Recent infection, Recent medication, Recent trauma, Seizure disorder, Sickle cell disease/trait, Steroid use . Immunization Status General All up to date Recent Healthcare No recent doctor visit, No rec ent hospitalization Similar Sx Previous Yes Review of Systems ROS Statements All systems rev neg except as marked. Past Medical History - Adult Stated Complaint out of medicine, stomach ache, bp high Allergies Coded Allergies: Iodine and Iodide Containing Produc (Severe, HIV ES 10/28/18) shellfish derived (Intermediate, RASH 05/05/19) Home Medications Reported Medications LISINOPRIL (ZESTRIL) 40 MG PO BID FUROSEMIDE (LASIX) 40 MG PO BID Review of Nursing Notes Rev avail, and agree Past Medical History: Reports: Hypertension. Denies: Congestive heart failure. Additional Surgical History NONE Family History: Reports: Diabetes, Hypertension. Alcohol Use Denies EtOH use Drug Use Denies recreational drugs Smoking status for patients 13 years old or olde r: Never Smoker Other Social History Local resident Physical Exam Vital Signs Vital Signs First Documented: Result Date Time Pulse Ox 100 05/ 1200 B/P 225/155 05/05 1200 B/P Mean 178 05/ 1200 Temp 36.9 05/05 1200 Pulse 98 05/05 1200 Resp 18 05/ 1200 Last Documented: Result Date Time Pulse Ox 100 05/ 1200 B/P 225/155 05/05 1200 B/P Mean 178 05/05 1200 Temp 36.9 05/05 1200 Pulse 98 05/05 1200 Resp 18 05/05 1200 Review of Vital Signs Reviewed Physical Exam General/Const General/Const Awake, Alert, Well appearing MS Head Head Normocephalic Resp/Chest Respiratory/Chest Breath sounds NL, Breath soun ds = bilat, No respiratory distress, No rales, No rhonchi, No wheezing Cardiovascular Cardiovascular Heart rate NL, Regular r hythm, Heart sounds NL, Cap refill not delayed, Peripheral circulation NL Abdomen/GI Abdomen/GI Soft, Non-tender, No guarding, No re bound Lymphatic Lymphatic No gross adenopathy Skin Skin Color NL, Warm, Dry, Turgor NL Re-Evaluation MDM Free Text MDM Notes Free Text MDM Notes Pt states that he runs BP in the 300s at times. since he runs dangerously high BP, Jacob control from the ED is not feasible for a ppropritae discharge. Patient advised that admission would be required and pat ient declined. Patient given risks and benefits. Pt undertstands and still no t wanting to be admitted and states that she just wants a med refill ED Course Medication(s) Ordered Medication(s) Ordered: Cardiovascular Drugs Sig/Ronan Start time Last Medication Dose Route Stop Time Status Admin Clonidine HCl 0.2 MG X1ED STA 10/28 1202 DC 05/ 05 PO 05 1203 1209 Electrolytic, Caloric, And Camila Sig/Ronan Start time Last Medication Dose Route Stop Time Status Admin Furosemide 20 MG X1ED STA 10/28 1246 DC 05/05 PO 10/28 1247 1250 Gastrointestinal Drugs Sig/Ronan Start time Last Medication Dose Route Stop Time Status Admin Al Hydroxide/Mg 30 ML X1ED STA 10/28 1240 DC / Hydroxide PO 10/28 1241 1245 Lidocaine HCl 15 ML Patient Discharge Departure Vital Signs/Condition Vital Signs First Documented: Result Date Time Pulse Ox 100 05/ 1200 B/P 225/155 05/05 1200 B/P Mean 178 05/ 1200 Temp 36.9 05/05 1200 Pulse 98 05/05 1200 Resp 18 05/05 1200 Last Documented: Result Date Time Pulse Ox 100 05/ 1200 B/P 225/155 05/05 1200 B/P Mean 178 05/05 1200 Temp 36.9 05/05 1200 Pulse 98 05/05 1200 Resp 18 05/ 1200 All vital signs available at the time of this en try have been reviewed. Clinical Impression Clinical Impression Primary Impression: Hypertensive urgency Disposition Decision Other )( Time 1256 )( Date 10/28/18 Against Medical Advice Yes Discharge/Care Plan Counseled Regarding Diagnosi s, Prescriptions, Need for follow-up, When to return to ED Prescriptions lisinopril 40 mg qd and lasix 20 mg BID as per h is request Electronically Signed by Zhao Guevara MD on 0 10/28/18 at 1257 RPT #:[id number] END OF REPORT 2018-08-25 18:45:00-00:00 [facility] ([facility]) EMERGENCY PROVIDER REPORT REPORT#:[id number] REPORT STATUS: Signed DATE:08/25/18 TIME: 184 PATIENT: JORGE GOINS UNIT #: [id number] ROOM/BED: AGE: 33 SEX: M PCP PHYS: No Primary or Family Ph ysician SERVICE AUTHOR: Olinda Carlson MD * ALL edits or amendments must be made on the rimidi/computer document * HPI-Chest Pain Under 40 General Initial Greet Date/Time 08/25/18 1510 Presentation Chief Complaint Chest pain, Shortness of breath Hx Obtained From Patient Sudden in Onset? Yes Onset Occurred Days ago (3) Symptom Duration Since onset, Waxes and wanes Progression since Onset Waxes and wanes Context of Onset At rest Location Substernal Quality Same as prior, Aching Radiation Does not radiate. )( Migration/Movement None Severity: Onset Mild Severity: Current Moderate Associated with Reports: Cough, non-productive, Shortness of myles ath. Denies: Belching, Cough, productive, Cough, with hemoptysis, Diaphoresis, Dizziness, Fatigue, Fever, Insomnia, Lightheaded, Nausea, Near-syncope, Num bness/tingling, Palpitations, Recent viral symptoms, Syncope, Vomiting, Weakne ss, Wheezing. Associated Other Pt denies other symptoms Exacerbated by Nothing Relieved by Nothing Risk-Chest Pain Under 40 Risk Stratification )( Coronary Artery Disease Risk factors reviewed )( Pulmonary Embolism Risk factors reviewed )( AMI-Aspirin Aspirin Last 24 Hrs None Review of Systems ROS Statements All systems rev neg except as marked. Basic Review of Systems Basic ROS EYES: No redness, ENT: No sore throat, : No dysuria/frequency, HEM: No bleeding/bruising Past Medical History - Adult Stated Complaint CHEST PAIN FOR 3 DAYS Allergies Coded Allergies: Iodine and Iodide Containing Produc (Severe, HIV ES 03/28/18) shellfish derived (Intermediate, RASH 03/28/18) Home Medications Reported Medications LISINOPRIL (ZESTRIL) 40 MG PO BID FUROSEMIDE (LASIX) 40 MG PO BID Discontinued Reported Medications METOPROLOL TARTRATE (LOPRESSOR) 25 MG PO BID Review of Nursing Notes Rev avail, and agree Past Medical History: Reports: Hypertension. Denies: Congestive heart failure. Additional Surgical History NONE Family History: Reports: Diabetes, Hypertension. Alcohol Use Denies EtOH use Drug Use Denies recreational drugs Smoking status for patients 13 years old or olde r: Never Smoker Other Social History Local resident Physical Exam Vital Signs Vital Signs First Documented: Result Date Time Pulse Ox 99 08/25 1511 B/P 224/149 08/25 1511 B/P Mean 174 08/25 1511 O2 Delivery Room air 08/25 1511 Temp 99.7 08/25 1511 Pulse 108 08/25 1511 Resp 18 08/25 1511 O2 Flow Rate 2.664746 08/25 1535 Last Documented: Result Date Time Pulse Ox 98 08/25 1855 B/P 183/119 08/25 1855 B/P Mean 140 08/25 1855 O2 Delivery Room air 08/25 185 Pulse 87 08/25 1855 Resp 20 08/25 1855 Temp 98.8 08/25 1815 O2 Flow Rate 2.304290 08/25 1735 Review of Vital Signs Reviewed Basic Physical Exam Basic PE HEAD: Atraumatic/NC, EYES: PERRL, conj clear, ENT: Membranes moist, NECK: Supple, ABD: Soft/non- tender, EXT: No gross abnormality, SKIN: No rashes, warm/dry, NEURO: alert oriented, NEURO: gross mo vement NL, PSYCH: NL thought content Focused PE General/Const General/Const Awake, Alert, Well appearing MS Neck Neck Supple, Full range of motion, No s welling, Non-tender, No masses, No JVD Resp/Chest Respiratory/Chest Breath sounds NL, Breath soun ds = bilat, No respiratory distress, No rales, No rhonchi, No wheezing, No chest tenderness Cardiovascular Cardiovascular Heart rate NL, Regular rhythm, H eart sounds NL, No murmurs, Peripheral circulation NL, Pulses = bilaterally, No gross BP differential Lower Ext Edema Pitting, Right 2+, Left 2+. Abdomen/GI Abdomen/GI Soft, Non-tender, No guarding, No re bound Interpretation Diagnostics Lab Results Interpretation Results Laboratory Tests 08/25/18 1527: [Embedded Image Not Available] Laboratory Tests: 08/25 08/25 08/25 1750 1749 1744 Chemistry Rapid Troponin I (0.00 - 0.079 ng/mL) 0.02 Urines Urine Color (YELLOW) YELLOW Urine Appearance (CLEAR) CLEAR Urine pH (5.0 - 8.0) 7.0 Ur Specific [place] (1.000 - 1.030) 1.010 Urine Protein (NEGATIVE MG/DL) 30 (1+) H Urine Glucose (UA) (NEGATIVE MG/DL) NEGATIVE Urine Ketones (NEGATIVE MG/DL) NEGATIVE Urine Blood (NEGATIVE) NEGATIVE Urine Nitrite (NEGATIVE) NEGATIVE Urine Bilirubin (NEGATIVE) NEGATIVE Urine Urobilinogen (<=1.0 EU/dL) 0.2 Ur Leukocyte Esterase (NEGATIVE) NEGATIVE Urine RBC (0 - 3 /HPF) NONE SEEN Urine WBC (0 - 3 /HPF) 0-3 Ur Epithelial Cells (NONE - FEW /LPF) FEW Urine Bacteria (NEGATIVE /HPF) RARE Urine Mucus (NONE SEEN /LPF) 1+ H 08/25 08/25 08/25 08/25 1536 1530 1529 1527 Chemistry Sodium (135 - 147 MMOL/L) 135 Potassium (3.6 - 5.2 MMOL/L) 3.6 Chloride (98 - 108 MMOL/L) 98 Carbon Dioxide (21 - 32 mmol/L) 28 BUN (6 - 21 MG/DL) 29 H Creatinine (0.6 - 1.3 mg/dL) 1.8 H Glomerular Filtr Rate (>60) 57 L Glucose (70 - 110 mg/dL) 95 Calcium (8.7 - 10.5 mg/dL) 9.1 Total Bilirubin (0.0 - 1.0 mg/dL) 1.00 AST (10 - 37 UNITS/L) 28 ALT (12 - 78 UNITS/L) 32 Total Alk Phosphatase (46 - 116 UNITS/L) 127 H Rapid CK-MB (CK-2) (0.0 - 3.5 NG/ML) 1.7 Rapid Troponin I (0.00 - 0.079 ng/mL) 0.03 Rap B-Natriuretic Pept (0.0 - 100.0 pg/mL) 1064 H Total Protein (6.0 - 8.2 g/dL) 8.3 H Albumin (3.7 - 5.5 G/DL) 3.3 L Coagulation INR 1.4 PTT (Nathan) (23.4 - 37.0 SECONDS) 30.9 PT Patient/Control Mix (9.2 - 12.1 SECONDS) 16. 2 H Hematology WBC (5.0 - 12.0 K/MM3) 6.7 RBC (4.70 - 6.10 M/MM3) 4.40 L Hgb (14.0 - 18.0 G/DL) 12.2 L Hct (37.0 - 49.0 %) 38.0 MCV (80 - 94 fL) 86 MCH (27 - 31 PGM) 27.7 MCHC (33 - 37 G/DL) 32.1 L RDW (11.5 - 15.5 %) 16.6 H Plt Count (130 - 400 K/MM3) 383 MPV (7.4 - 10.4 fl) 9.6 Neut % (Auto) (43 - 65 %) 68.7 H Lymph % (Auto) (20.5 - 45.5 %) 23.5 Citrus % (Auto) (5.5 - 11.7 %) 6.3 Eos % (Auto) (0.9 - 2.9 %) 1.2 Baso % (Auto) (0.2 - 1.0 %) 0.3 Neut # (Auto) (2.2 - 4.8 K/mm3) 4.61 Lymph # (Auto) (1.3 - 2.9 K/mm3) 1.58 Citrus # (Auto) (0.3 - 0.8 K/mm3) 0.42 Eos # (Auto) (0.0 - 0.2 K/MM3) 0.08 Baso # (Auto) (0.0 - 0.1 K/mm3) 0.02 Recent Impressions: RADIOLOGY - XR CHEST 1 V 08/25 1615 Report Impression - Status: SIGNED Entered: 08/25/2018 1630 IMPRESSION: 1. Cardiomegaly. 2. Mild pulmonary vascular congestion. Impression By: Frederick Higgins M.D. Lab Imaging Statement Laboratory radiographic studies reviewed and con sidered in the medical decision-making. ECG #1 Interpretation NL ECG Interpretation Normal rate, Normal sinus rhythm, No acute ischemic changes Re-Evaluation MDM ED Course Medication(s) Ordered Medication(s) Ordered: Cardiovascular Drugs Sig/Ronan Start time Last Medication Dose Route Stop Time Status Admin Hydralazine HCl 10 MG X1ED STA 08/25 1740 DC / IV 08/25 1741 1810 Clonidine HCl 0.2 MG STAT STA 08/25 1541 DC / PO 08/25 1542 1557 Electrolytic, Caloric, And Camila Sig/Ronan Start time Last Medication Dose Route Stop Time Status Admin Furosemide 40 MG X1ED STA 08/25 1646 DC /02 IV 08/25 1647 1648 Furosemide 80 MG STAT STA 08/25 1629 CAN IV 08/25 1630 Patient Discharge Departure Vital Signs/Condition Vital Signs First Documented: Result Date Time Pulse Ox 99 08/25 1511 B/P 224/149 08/25 1511 B/P Mean 174 08/25 1511 O2 Delivery Room air / 1511 Temp 99.7 08/25 1511 Pulse 108 08/25 1511 Resp 18 08/25 1511 O2 Flow Rate 2.909040 08/25 1535 Last Documented: Result Date Time Pulse Ox 98 08/25 1855 B/P 183/119 08/25 1855 B/P Mean 140 08/25 185 O2 Delivery Room air 08/25 1854 Pulse 87 08/25 185 Resp 20 08/25 185 Temp 98.8 08/25 1815 O2 Flow Rate 2.119839 08/25 1735 All vital signs available at the time of this en try have been reviewed. Condition Stable Clinical Impression Clinical Impression Primary Impression: Chest pain Secondary Impressions: Heart failure, Hypertensi ve emergency Disposition Decision Discharge )( Discharged to Home Yes )( Time 1846 )( Date 08/25/18 Discharge/Care Plan Counseled Regarding Diagnosi s, Lab results, Imaging studies, Prescriptions, Need for follow-up, When to return to ED Prescriptions Reviewed Risks, Benefits, Alternat anupama treatment Discharge Note I have spoken with the patie nt and/or caregivers. I have explained the patient's condition, diagnoses and jaxon atment plan based on the information available to me at this time. I have answered the patient's and/ or caregiver's questions and addressed any concerns. The patient and/or careg rm have as good an understanding of the patient 's diagnosis, condition and treatment plan as can be expected at this point. The vital signs have bee n stable. The patient's condition is stable and appr opriate for discharge from the emergency department. The patient will pursue further outpatient evalu ation with the primary care physician or other designated or consulting phys ician as outlined in the discharge instructions. The patient and/or caregivers are agreeable to this plan of care and follow-up instructions have been exp lained in detail. The patient and/or caregivers have received these instructio ns in written format and have expressed an understanding of the discharge inst ructions. The patient and/or caregivers are aware that any significant change in condition or worsening of symptoms should prompt an immediate return to [facility] or the closest emergency department or a call to 911. Quality Measures BP F/U for HTN F/u with PCP/other doc Electronically Signed by Olinda Carlson MD on at 234 RPT #:[id number] END OF REPORT
[2023-01-10] MEDS: TIZANIDINE 4 MG TABLET PO SCH (21:51)
[2023-01-10] MEDS: Meropenem 1,000 MG in NA CHLORIDE 0.9% 100 ML IV SCH (21:51)
[2023-01-10] MEDS: MORPHINE 2 MG/ML SYR IV PRN (21:59)
[2023-01-10] MEDS: ZOLPIDEM TARTRATE 5 MG TABLET PO PRN (22:37)
[2023-01-10] MEDS: NA CHLORIDE 0.9% 1,000 ML IV SCH (22:38)
[2023-01-11 00:34] VITALS: BMI 32.6
[2023-01-11 05:32] LABS: Hematocrit 32.5 % (39.6-49.0); Lymphocytes % 17.6 % (15.3-44.8); MCV 85.2 fL (80-100); MPV 7.9 fL (7.6-11.3); RBC Red Blood Cell Count 3.82 M/uL (4.33-5.43)
[2023-01-11] MEDS: Meropenem 1,000 MG in NA CHLORIDE 0.9% 100 ML IV SCH ×3 (05:43→21:45)
[2023-01-11 05:50] LABS: Potassium 4.1 mEq/L (3.5-5.1)
--- NOTE | 2023-01-11 06:55 | P.PN ---
Date of Service: 01/11/23 Subjective: doing okay s/p I&D today no new / worsening problems afebrile ROS: 10 point ROS as noted above, otherwise negative Physical Exam: GEN: Alert, oriented, NAD HEENT: Normal conjunctiva, sclera anicteric CV: Regular rate and rhythm, no edema Pulm: Nonlabored respirations on room air, clear bilaterally ABD: Soft, nontender, nondistended Integumentary: sacral / buttock ulcers with dressing in place Neuro: Normal speech, Paraplegia vitals reviewed Problem List: Stage IV pressure ulcer L buttock/ischium [id number] & Stage III sacral pressure ulcer, s/p I&D (01/11) Osteomyelitis Hx of ruptured aortic aneurysm resulting in [id number] Hypertension COPD Stage IV pressure ulcer L buttock/ischium [id number] & Stage III sacral pressure ulcer, s/p I&D (01/11) Osteomyelitis Surgery consulted s/p I&D (01/11) deep pressure ulcer L buttock/ischium [id number] & sacral pressure ulcer probed down to bone Wound culture growing ESBL E. coli per notes at [facility] Wound culture (01/10): pending Wound culture (01/11): pending ID consulted Continue merrem (01/09-) Added vanc (01/11-) Afebrile without leukocytosis PRN pain medication will need prolonged antibiotics and wound care would be good candidate for LTAC History of ruptured aortic aneurysm resulting in [id number] Noted, at baseline Hypertension COPD Continue home medications VTE: SCD Code: Full Dispo: Agreeable to LTAC 01/11 ss/cm consulted
[2023-01-11] MEDS: NA CHLORIDE 0.9% 1,000 ML IV SCH ×2 (08:55→19:00)
[2023-01-11] MEDS: TIZANIDINE 4 MG TABLET PO SCH ×2 (08:56→21:45)
[2023-01-11] MEDS ORDERED: propofoL 200 MG/20 ML VIAL IV ONE (10:45)
[2023-01-11] MEDS ORDERED: FENTANYL CITR 100 MCG/2 ML ONE (10:45)
[2023-01-11] MEDS ORDERED: MIDAZOLAM HCL 2 MG/2 ML INJ ONE (10:45)
[2023-01-11] MEDS ORDERED: LIDOCAINE 2% MPF 5 ML VIAL ONE (10:46)
[2023-01-11] MEDS ORDERED: ONDANSETRON 4 MG/2 ML VIAL ONE (10:51)
--- NOTE | 2023-01-11 11:48 | P.BOP ---
Preoperative diagnosis: sacral (III) and L buttock/ischium (IV) infected necrotic pressure ulcers Postoperative diagnosis: same Primary procedure: 1. Excisional debridement deep pressure ulcer L buttock/ischium [id number] Secondary procedure: 2.Excisional debridement of sacral pressure ulcer Other procedure(s): 3. Pulse lavage of those (Both) infected/necrotic ulcers Estimated blood loss: <20cc Specimen: culture, tissue Findings: see dicta Anesthesia: General Complications: None Transferred to: Recovery Room Condition: Good
[2023-01-11] MEDS: MORPHINE 4 MG/ML SYR ONE ×2 (12:18→12:23)
[2023-01-11] MEDS: MEPERIDINE HCL 25 MG/ML SYR ONE ×2 (12:36→12:41)
[2023-01-11] MEDS: MORPHINE 2 MG/ML SYR IV PRN ×2 (13:16→20:37)
--- NOTE | 2023-01-11 14:25 | CON ---
Date of Consultation: 01/11/2023 Diagnosis: Sacral decubitus ulcers. History Of Present Illness: This is a case of a 37-year-old patient another [facility] with infected decubitus ulcers and did not have surgical service at that moment in [facility], so the patient have to be transferred to this institution, so we can do surgical debridement in the OR. The patient was suspected to have osteomyelitis in that region, so in addition to the ade gical service, the patient also need Infectious Disease services for long-term antibiotics. The carmella ent unfortunately is a paraplegic as a result of a rupture aortic aneurysm in 2019. Past Medical History: Ruptured aortic aneurysm in 2020 with paraplegia, chronic kidney disease, hype rtension, COPD. Past Surgical History: Includes cholecystectomy and aortic repair stent. Family History: Noncontributory. He does not smoke. He does not drink alcohol. Review of Systems: Foul smelling and decubitus ulcers. No shortness of breath. No chest pain. Physical Examination: General: The patient is awake, alert. HEENT: Pupils are equal and reactive. Anicteric. Neck: Supple. Chest: Clear. Heart: S1, S2. Abdomen: Soft and depressible. No guarding or rebound. No peritoneal signs. Extremities: Once again, loss sensation due to paraplegia. Peripheral pulses are present. Integumentary: Shows a necrotic ulcer over the sacrum and small ulcer in the right gluteal region. Some of that shows necrotic tissue, purulent discharge coming from that area and foul smelling. The patient will need surgical debridement. This goes all the way down to bone region on the coccyx and sacrum. So I suspect the patient may also have osteomyelitis. Laboratory Data: Blood work shows WBC count of 5.7, hemoglobin of 10.4, potassium 4.1, creatinine 0. 83. Assessment: This is a 37-year-old patient with necrotic infected ulcer, sacrum, bilateral buttocks. The sacrum is a worse of them with clearly necrotic tissue present that need surgical debridement wi th benefits, alternatives, and risks fully explained including, but not limited to infection, bleedin g, damage to adjacent structures, anesthesia complication, nonhealing wound, UT, and even . He also understands he has to be compliant with treatment. We might have to see him long-term in the [facility]. He may require other techniques that may include a wound VAC, probably long-term antibiotics. We prove that he has osteomyelitis, but is very important on top of that he continues with watching his diet, also off-loading that area. The patient understood and signed a consent. CONY/MARIEL Voice ID: [id number] Report ID: [id number]
[2023-01-11] MEDS ORDERED: VANCOMYCIN 2 GM in NA CHLORIDE 0.9% 500 ML IVPB SCH (16:00)
--- NOTE | 2023-01-11 16:23 | P.CNS ---
Date of Consult: 01/11/23 Reason for Consult: Osteomyelitis Chief Complaint: Sacral osteomyelitis/ulceration History of Present Illness: Patient is a 37 year old male with the history of paraplegia secondary to a ruptured abdominal aortic aneurysm in 2019, hypertension, CKD and COPD who was transferred to [facility] from [facility] for debridement of sacral pressure injury concerning for osteomyelitis. Patient underwent debridement this morning 01/11 by and was found to necrotic tissue and purulent discharge reaching down to the bone with clinical osteomyelitis. Infectious disease was consulted. Allergies iodine Allergy (Verified 01/10/23 21:12) Itching/Hives/Rash seafoods Allergy (Uncoded 01/10/23 21:12) Itching/Hives/Rash Home medications list reviewed: Yes Home Medications: Acetaminophen [8 Hour Acetaminophen] 650 mg PO Q6H PRN 01/11/23 Aspirin 81 mg PO DAILY 01/11/23 Calcium Carbonate [Tums Regular*] 500 mg PO TID 01/11/23 Collagenase [Santyl Ointment*] 1 appl TOP DAILY 01/11/23 Docusate/Senna [Senokot-S*] 2 tab PO BEDTIME 01/11/23 Gabapentin 300 mg PO TID 01/11/23 Hydrocodone Bit/Acetaminophen [Nellis 10-325 Tablet] 1 each PO Q6H PRN 01/11/23 Ibuprofen 400 mg PO Q8H PRN 01/11/23 Lactulose 10 gm PO Q8H PRN 01/11/23 Melatonin 10 mg PO BEDTIME 01/11/23 Meropenem [Merrem 1 GM/100 ML NS IVPB] 1 g IV Q8H 01/11/23 Mineral Oil/Petrolatum,White [Artificial Eye Lub 15-83% Oint] 1 appl EACH EYE TID 01/11/23 Multivitamin [Daily Hardy] 1 tab PO DAILY 01/11/23 Oxybutynin Chloride [Oxybutynin Chloride ER] 10 mg PO DAILY 01/11/23 Polyethylene Glycol 3350 [Miralax] 17 gm PO DAILY 01/11/23 Sertraline [Zoloft] 100 mg PO BEDTIME 01/11/23 Simethicone 80 mg PO TID PRN 01/11/23 Terazosin HCl 1 mg PO BEDTIME 01/11/23 Tizanidine HCl 2 mg PO Q8H 01/11/23 Zolpidem Tartrate [Ambien] 5 mg PO BEDTIME 01/11/23 - Past Medical/Surgical History Diabetic: No -: Ruptured aortic aneurysm 2019 resulting in paraplegia -: CKD -: Hypertension -: COPD -: Cholecystectomy -: Aortic repair/stent Psychosocial/ Personal History: Patient is a resident of [facility] currently - Family History Mother History Unknown: Yes Medical History: Diabetes - Social History Alcohol use: No CD- Drugs: No Caffeine use: Yes Place of Residence: Home Review of Systems 10-point ROS is otherwise unremarkable Musculoskeletal: As per HPI Integumentary: As per HPI Neurological: Other (paraplegia) Physical Examination Temp Pulse Resp BP Pulse Ox 97.1 F 62 16 134/63 100 01/11/23 14:10 01/11/23 14:10 01/11/23 14:10 01/11/23 14:10 01/11/23 14:10 General: Alert, In no apparent distress, Oriented x3 HEENT: Atraumatic, Normocephalic Neck: Supple, JVD not distended Respiratory: Clear to auscultation bilaterally, Normal air movement, Other (room air) Cardiovascular: No edema, Normal S1 S2 Gastrointestinal: Normal bowel sounds, Soft and benign, Non-distended Integumentary: Pressure ulcer (sacrum stage II, ischium/coccyx stage 4. ) Neurological: Abnormal sensation (secondary to paraplegia) Urinary: Garcia catheter Laboratory Data - Reviewed Microbiology Data - Reviewed Imagings Data: - Reviewed ([facility] documents) Conclusions/Impression: Problem List Paraplegia secondary to rupture aortic aneurysm in 2019 CKD Hypertension COPD Sacral Pressure Ulcer stage IV Osteomyelitis Sacral Pressure Ulcer Stage IV Osteomyelitis - s/p debridement 01/11, tolerated procedure well. Findings of necrotic tissue and purulent discharge, infection extending to bone per Dr. Barrera. - On meropenem (started 01/09) - No leukocytosis. Afebrile. - Wound culture 01/11: Pending (ESBL per [place] documents and was started on merrem at [place]) Recommendations Osteomyelitis: Start on Vancomycin 01/11. Continue meropenem. Patient will require 6 weeks of antibiotics. Patient would benefit from LTAC for long-term IV antibiotics and wound care. -Continue current wound care - Follow up with wound cultures ID will continue follow patient as needed. Case discussed with Mor Alex
[2023-01-11] MEDS: HYDROCODONE/APAP 10/325 TAB PO PRN (16:59)
[2023-01-11] MEDS ORDERED: DIPHENHYDRAMINE 50 MG/ML VIAL IV ONE ×2 (20:01→21:58)
[2023-01-11] MEDS: DOXYCYCLINE 100 MG in NA CHLORIDE 0.9% 100 ML IVPB SCH (20:26)
[2023-01-11] MEDS ORDERED: METHYLPREDNISOLONE 125 MG INJ IV ONE (21:57)
[2023-01-11] MEDS ORDERED: ALBUTEROL 2.5 MG/3 ML NEB SOL NEB ONE (21:58)
[2023-01-11] MEDS ORDERED: FAMOTIDINE 20 MG/2 ML VIAL IV ONE (22:30)
[2023-01-12] MEDS: HYDROCODONE/APAP 10/325 TAB PO PRN ×3 (01:04→22:19)
[2023-01-12] MEDS: MORPHINE 2 MG/ML SYR IV PRN ×3 (02:47→18:11)
[2023-01-12 02:55] LABS: Absolute Lymphocytes (CBC) 0.5 K/uL (0.7-4.9); Hematocrit 34.8 % (39.6-49.0); Lymphocytes % 6.7 % (15.3-44.8); MPV 7.7 fL (7.6-11.3); RBC Red Blood Cell Count 4.09 M/uL (4.33-5.43)
[2023-01-12 03:02] LABS: Potassium 4.5 mEq/L (3.5-5.1)
[2023-01-12 04:17] LABS: Blood Morphology Comment NOT SEEN (NOT SEEN); Platelet Estimate ADEQ
[2023-01-12] MEDS: Meropenem 1,000 MG in NA CHLORIDE 0.9% 100 ML IV SCH ×3 (05:27→20:58)
[2023-01-12] MEDS ORDERED: SIMETHICONE 80 MG TAB PO PRN (06:30)
[2023-01-12] MEDS ORDERED: POLYETHYL GLY 3350 17 GM/DOSE PO PRN (06:30)
--- NOTE | 2023-01-12 06:59 | P.PN ---
Date of Service: 01/12/23 Subjective: doing okay, pain slowly improving adverse reaction with vancomycin yesterday, switched to doxy no new / worsening problems afebrile ROS: 10 point ROS as noted above, otherwise negative Physical Exam: GEN: Alert, oriented, NAD, Garcia in place HEENT: Normal conjunctiva, sclera anicteric CV: Regular rate and rhythm, no edema Pulm: Nonlabored respirations on room air, clear bilaterally ABD: Soft, nontender, nondistended Integumentary: sacral / buttock ulcers with dressing in place Neuro: Normal speech, Paraplegia Garcia in place vitals reviewed Problem List: Stage IV pressure ulcer L buttock/ischium [id number] & Stage III sacral pressure ulcer, s/p I&D (01/11) Osteomyelitis Hx of ruptured aortic aneurysm resulting in [id number] Hypertension COPD Stage IV pressure ulcer L buttock/ischium [id number] & Stage III sacral pressure ulcer, s/p I&D (01/11) Osteomyelitis Surgery consulted s/p I&D (01/11) deep pressure ulcer L buttock/ischium [id number] & sacral pressure ulcer probed down to bone Garcia placed in [facility] 12/26 d/t chronic incontinence (~3 years) Wound culture growing ESBL E. coli per notes at [facility] Wound culture (01/10): pending Wound culture (01/11): pending ID consulted Continue merrem (01/09-) and Doxy (01/11-) vanc (01/11) switched to Doxy (01/11-) d/t suspected allergy 01/11 - had adverse reaction with vancomycin given benadryl, solumedrol and pepcid, with good effect Afebrile without leukocytosis PRN pain medication will need prolonged antibiotics and wound care would be good candidate for LTAC History of ruptured aortic aneurysm resulting in [id number] Noted, at baseline Hypertension COPD Continue home medications VTE: SCD Code: Full Dispo: Agreeable to LTAC 01/11 ss/cm consulted
[2023-01-12] MEDS ORDERED: DOXYCYCLINE HYCLATE 100MG INJ ONE (08:26)
[2023-01-12] MEDS: COLLAGENASE 30 GM OINTMENT TOP SCH (09:00)
[2023-01-12] MEDS: DOXYCYCLINE 100 MG in NA CHLORIDE 0.9% 100 ML IVPB SCH ×2 (09:07→20:57)
[2023-01-12] MEDS: TIZANIDINE 4 MG TABLET PO SCH ×2 (09:07→20:57)
[2023-01-12] MEDS: GABAPENTIN 300 MG CAP PO SCH ×3 (09:09→20:56)
--- NOTE | 2023-01-12 09:31 | P.PN ---
Date of Service: 01/12/23 Chief Complaint: Sacral osteomyelitis/ulceration Subjective: Patient reports having reaction to Vancomycin infusion last night with allergic reaction symptoms of swelling of face and lips, rash development on face. Otherwise no new or worsening complaints. Patient in bed, A&Ox4. Physical Examination Temp Pulse Resp BP Pulse Ox 97.5 F 64 18 170/90 H 97 01/12/23 08:00 01/12/23 08:00 01/12/23 09:09 01/12/23 08:00 01/12/23 09:09 General: Alert, In no apparent distress, Oriented x4 HEENT: Atraumatic, Normocephalic Neck: Supple, JVD not distended Respiratory: Clear to auscultation bilaterally, Normal air movement, breathing comfortably on room air. Cardiovascular: No edema, Normal S1 S2 Gastrointestinal: Normal bowel sounds, Soft and benign, Non-distended Integumentary: Pressure ulcer (sacrum stage III, ischium/coccyx stage 4. Neurological: Abnormal sensation secondary to paraplegi Urinary: Garcia catheter Laboratory Data - Reviewed Microbiology Data - Reviewed Imagings Data: - Reviewed ([facility] documents) Medications List: Reviewed Assessment and Plan Problem List Paraplegia secondary to rupture aortic aneurysm in 2019 CKD Hypertension COPD Sacral Pressure Ulcer stage IV Osteomyelitis Pressure Ulcer Stage IV of Left Buttock/Ischium Pressure Ulcer Stage III of Sacrum Osteomyelitis - s/p debridement of necrotic tissue on 01/[address] Barrera, reported findings of infection extending to bone - Wound culture 01/11: Pending (ESBL per [place] documents and was started on Merrem at [place]) - On Meropenem (started 01/09) Received dose of Vancomycin 01/11 with allergic reaction of rash on face, swelling of face and lips. Vancomycin was discontinued and he was started on Doxycycline. No leukocytosis. Afebrile. Recommendations Osteomyelitis: Continue antibiotic therapy for 6 weeks duration - Follow up with wound cultures -Continue wound care per surgery team Patient would benefit from LTAC for long-term IV antibiotics and wound care. ID will continue follow patient as needed. Case discussed with Mor Alex
[2023-01-12] MEDS ORDERED: NA CHLORIDE 0.9% 0 ML ONE (13:44)
--- NOTE | 2023-01-12 16:54 | PN ---
Date of Progress Note: 01/12/2023 Reason For Service: Status post decubitus ulcer debridement. Subjective: The patient is doing well. No complaint. No fever. No shortness of breath. No chest pain. The patient was transferred from [facility] to this institution after being treated there for osteomyelitis, sepsis, and also infected necrotic ulcers. The patient went to surgery yesterday . He feels a lot better. Infectious Disease worked on the case and the primary doctor. The surgica l areas are intact. Plan: Continue treatment per Infectious Disease and Dr. Danielle. We will do debridement p.r.n. as nestephanie ded. Offloading is important, nutrition, and he may qualify for an LTAC and eventually need a wound VAC. HM/MODL Voice ID: [id number] Report ID: [id number]
[2023-01-12] MEDS: SERTRALINE HCL 100 MG TAB PO SCH (20:56)
[2023-01-12] MEDS: TERAZOSIN HCL 1 MG CAP PO SCH (20:57)
[2023-01-12] MEDS: DOCUSATE NA/SENNA CONC 1 TAB PO SCH (20:57)
[2023-01-12] MEDS: JUVEN PACKET PO SCH (20:58)
[2023-01-12] MEDS ORDERED: FAMOTIDINE 20 MG/2 ML VIAL IV ONE (21:57)
[2023-01-12] MEDS: ZOLPIDEM TARTRATE 5 MG TABLET PO PRN (23:34)
[2023-01-13 04:10] LABS: Potassium 4.2 mEq/L (3.5-5.1)
[2023-01-13] MEDS ORDERED: Meropenem 1000 MG/VIAL IV ONE (05:10)
[2023-01-13] MEDS: Meropenem 1,000 MG in NA CHLORIDE 0.9% 100 ML IV SCH ×3 (05:13→22:00)
[2023-01-13] MEDS ORDERED: NA CHLORIDE 0.9% 0 ML ONE (05:15)
--- NOTE | 2023-01-13 07:25 | P.PN ---
Date of Service: 01/13/23 Subjective: feels morphine is not helping as much today, not taking the edge off as well as it did yesterday Pain radiating up toward the back now otherwise no new / worsening problems afebrile ROS: 10 point ROS as noted above, otherwise negative Physical Exam: GEN: Alert, oriented, NAD, Garcia in place HEENT: Normal conjunctiva, sclera anicteric CV: Regular rate and rhythm, no edema Pulm: Nonlabored respirations on room air, clear bilaterally ABD: Soft, nontender, nondistended Integumentary: sacral / buttock ulcers with dressing in place Neuro: Normal speech, Paraplegia Garcia in place vitals reviewed Problem List: Stage IV pressure ulcer L buttock/ischium [id number] & Stage III sacral pressure ulcer, s/p I&D (01/11) Osteomyelitis Hx of ruptured aortic aneurysm resulting in [id number] Hypertension COPD Stage IV pressure ulcer L buttock/ischium [id number] & Stage III sacral pressure ulcer, s/p I&D (01/11) Osteomyelitis Surgery consulted s/p I&D (01/11) deep pressure ulcer L buttock/ischium [id number] & sacral pressure ulcer probed down to bone Garcia placed in [facility] 12/26 d/t chronic incontinence (~3 years) Wound culture growing ESBL E. coli per notes at [facility] Wound culture (01/10): normal rectal balta Wound culture (01/11): normal rectal balta ID consulted Continue merrem (01/09-) and Doxy (01/11-) vanc (01/11) switched to Doxy (01/11-) d/t suspected allergy 01/11 - had adverse reaction with vancomycin given benadryl, solumedrol and pepcid, with good effect Afebrile without leukocytosis PRN pain medication increased morphine Q6H (01/13) will need prolonged antibiotics and wound care PICC line ordered 01/13 would be good candidate for LTAC History of ruptured aortic aneurysm resulting in [id number] Noted, at baseline Hypertension COPD Continue home medications VTE: SCD Code: Full Dispo: Agreeable to LTAC 01/11 ss/cm consulted PICC line ordered 01/13
[2023-01-13] MEDS ORDERED: DOXYCYCLINE HYCLATE 100MG INJ ONE (07:48)
[2023-01-13] MEDS ORDERED: NA CHLORIDE 0.9% 100 ML ONE ×2 (08:01→21:05)
[2023-01-13] MEDS: MORPHINE 2 MG/ML SYR IV PRN ×2 (08:17→13:45)
[2023-01-13] MEDS: TIZANIDINE 4 MG TABLET PO SCH ×2 (08:18→21:06)
[2023-01-13] MEDS: GABAPENTIN 300 MG CAP PO SCH ×3 (08:18→21:07)
[2023-01-13] MEDS: JUVEN PACKET PO SCH ×2 (08:21→21:00)
[2023-01-13] MEDS: DOXYCYCLINE 100 MG in NA CHLORIDE 0.9% 100 ML IVPB SCH (08:23)
[2023-01-13] MEDS: COLLAGENASE 30 GM OINTMENT TOP SCH (08:23)
--- NOTE | 2023-01-13 09:26 | P.PN ---
Date of Service: 01/13/23 Chief Complaint: Sacral osteomyelitis/ulceration Subjective: Patient resting comfortably in bed. Denies any new or worsening complaints at this time. No acute events reported overnight. Physical Examination Temp Pulse Resp BP Pulse Ox 97.5 F 69 16 153/84 H 99 01/13/23 08:00 01/13/23 08:00 01/13/23 08:17 01/13/23 08:00 01/13/23 08:17 General: Alert, In no apparent distress, Oriented x4 HEENT: Atraumatic, Normocephalic Neck: Supple, JVD not distended Respiratory: Clear to auscultation bilaterally, Normal air movement, breathing comfortably on room air. Cardiovascular: No edema, Normal S1 S2 Gastrointestinal: Normal bowel sounds, Soft and benign, Non-distended Integumentary: Pressure ulcer sacrum stage III, ischium stage 4. Neurological: Abnormal sensation secondary to paraplegic Urinary: Garcia catheter Laboratory Data - Reviewed Microbiology Data - Reviewed Imagings Data: - Reviewed ([facility] documents) Medications List: Reviewed Assessment and Plan Problem List Paraplegia secondary to rupture aortic aneurysm in 2019 CKD Hypertension COPD Sacral Pressure Ulcer stage IV Osteomyelitis Pressure Ulcer Stage IV of Left Buttock/Ischium Pressure Ulcer Stage III of Sacrum Osteomyelitis - s/p debridement of necrotic tissue on 01/[address] Barrera, reported findings of infection extending to bone - Wound culture 01/11: "normal rectal balta" - Rectal ablta is not considered normal inside wounds - [facility] documents showing wound cultures growing ESBL - On Meropenem (started 01/09) Received dose of Vancomycin 01/11 with allergic reaction of rash on face, swelling of face and lips. Vancomycin was discontinued and he was started on Doxycycline. No leukocytosis. Afebrile. Recommendations Osteomyelitis: Continue antibiotic therapy for 6 weeks duration -Continue wound care per surgery/wound care team Patient would benefit from LTAC for long-term IV antibiotics, wound care and debridements. Patient will also eventually require a wound vac. Pending approval for LTAC. Case management following. ID will continue follow patient as needed. Case discussed with Mor Alex
[2023-01-13] MEDS: ACETAMINOPHEN 500 MG TAB PO PRN (09:46)
[2023-01-13] MEDS: HYDROCODONE/APAP 10/325 TAB PO PRN ×2 (12:23→21:18)
[2023-01-13] MEDS ORDERED: lisinopriL 10 MG TAB PO SCH (14:00)
[2023-01-13] MEDS: LABETALOL HCL 100 MG TAB PO SCH ×2 (14:18→21:00)
[2023-01-13] MEDS: DOCUSATE NA/SENNA CONC 1 TAB PO SCH (21:05)
[2023-01-13] MEDS: Mupirocin NASAL 2 APPL/1 GM TUBE NAS SCH (21:06)
[2023-01-13] MEDS: TERAZOSIN HCL 1 MG CAP PO SCH (21:07)
[2023-01-13] MEDS: SERTRALINE HCL 100 MG TAB PO SCH (21:07)
[2023-01-14] MEDS: HYDROCODONE/APAP 10/325 TAB PO PRN ×3 (03:33→16:15)
[2023-01-14] MEDS: DOXYCYCLINE 100 MG in NA CHLORIDE 0.9% 100 ML IVPB SCH ×2 (04:47→16:14)
[2023-01-14] MEDS: MORPHINE 4 MG/ML SYR IV PRN ×3 (05:01→18:19)
[2023-01-14] MEDS: Meropenem 1,000 MG in NA CHLORIDE 0.9% 100 ML IV SCH ×3 (06:00→20:59)
--- NOTE | 2023-01-14 06:56 | P.PN ---
Date of Service: 01/14/23 Subjective: feeling a little better today no new / worsening problems no nausea / vomiting / diarrhea pain slowly improving afebrile ROS: 10 point ROS as noted above, otherwise negative Physical Exam: GEN: Alert, oriented, NAD, Wei in place HEENT: Normal conjunctiva, sclera anicteric CV: Regular rate and rhythm, no edema Pulm: Nonlabored respirations on room air, clear bilaterally ABD: Soft, nontender, nondistended Integumentary: sacral / buttock ulcers with dressing in place Chronic Wei in place vitals reviewed Problem List: Stage IV pressure ulcer L buttock/ischium [id number] & Stage III sacral pressure ulcer, s/p I&D (01/11) Osteomyelitis Hx of ruptured aortic aneurysm resulting in [id number]; with chronic wei Hypertension COPD Stage IV pressure ulcer L buttock/ischium 8y2a0kg & Stage III sacral pressure ulcer, s/p I&D (01/11) Osteomyelitis Surgery consulted s/p I&D (01/11) deep pressure ulcer L buttock/ischium [id number] & sacral pressure ulcer probed down to bone Wei placed in [facility] 12/26 d/t chronic incontinence (~3 years); was straight cath'ing previously Wound culture growing ESBL E. coli per notes at [facility] Wound culture (01/10): normal rectal balta Wound culture (01/11): normal rectal balta ID consulted Continue merrem (01/09-) and Doxy (01/11-) vanc (01/11) switched to Doxy (01/11-) d/t suspected allergy 01/11 - had adverse reaction with vancomycin given benadryl, solumedrol and pepcid, with good effect will need prolonged antibiotics and wound care 6 weeks PICC line placed overnight Afebrile without leukocytosis PRN pain medication increased morphine Q6H (01/13) would be good candidate for LTAC History of ruptured aortic aneurysm resulting in [id number] Noted, at baseline Hypertension COPD Continue home medications Code: Full Dispo: Agreeable to LTAC 01/11 ss/cm consulted PICC line placed overnight
[2023-01-14] MEDS: Mupirocin NASAL 2 APPL/1 GM TUBE NAS SCH ×2 (08:17→21:06)
[2023-01-14] MEDS: TIZANIDINE 4 MG TABLET PO SCH ×2 (08:17→21:07)
[2023-01-14] MEDS: JUVEN PACKET PO SCH ×2 (08:18→21:05)
[2023-01-14] MEDS: GABAPENTIN 300 MG CAP PO SCH ×3 (08:18→21:03)
[2023-01-14] MEDS: LABETALOL HCL 100 MG TAB PO SCH ×2 (08:18→21:00)
[2023-01-14] MEDS: COLLAGENASE 30 GM OINTMENT TOP SCH (08:19)
[2023-01-14] MEDS ORDERED: DOXYCYCLINE 100 MG in NA CHLORIDE 0.9% 100 ML IVPB SCH (09:00)
--- NOTE | 2023-01-14 14:50 | RAD REPORT ---
EXAM DESCRIPTION: RAD - Chest Single View - 01/14/2023 2:06 am CLINICAL HISTORY: 37 years, Male, right picc line insertion COMPARISON: None. FINDINGS: Single view of the chest was obtained portable. No prior films are available for compariso n. There has been interval placement of a right upper extremity PICC line tip of the catheter within the cavoatrial junction/near the right atrium in good position. The cardiomediastinal silhouette demo nstrate to be unremarkable. The heart is not enlarged. The thoracic aorta demonstrate the presence of an the thoracic stent descending thoracic aorta. The pulmonary vasculature is normal distribution. C ostophrenic angles are sharp. No areas of consolidation or masses are seen. The rest of the soft tissue and bony structures demonstrate to be unremarkable. IMPRESSION: Right upper extremity PICC line tip within the cavoatrial junction/near the right atrium in good position. No focal areas of acute airspace disease. Electronically signed by: Nish Nesbitt MD 01/14/2023 3:04 AM CDT Due to temporary technical issues with the PACS/Fluency reporting system, reports are being signed by the in house radiologists without review as a courtesy to insure prompt reporting. The interpreting radiologist is fully responsible for the content of the report.
[2023-01-14] MEDS: DOCUSATE NA/SENNA CONC 1 TAB PO SCH (21:00)
[2023-01-14] MEDS: TERAZOSIN HCL 1 MG CAP PO SCH (21:05)
[2023-01-14] MEDS: SERTRALINE HCL 100 MG TAB PO SCH (21:07)
[2023-01-14] MEDS: ZOLPIDEM TARTRATE 5 MG TABLET PO PRN (21:10)
[2023-01-15] MEDS: MORPHINE 4 MG/ML SYR IV PRN ×3 (03:52→20:30)
[2023-01-15] MEDS: HYDROCODONE/APAP 10/325 TAB PO PRN ×3 (05:20→23:52)
[2023-01-15] MEDS: DOXYCYCLINE 100 MG in NA CHLORIDE 0.9% 100 ML IVPB SCH ×2 (05:21→16:35)
[2023-01-15] MEDS ORDERED: Meropenem 1000 MG/VIAL IV ONE (05:21)
[2023-01-15] MEDS: Meropenem 1,000 MG in NA CHLORIDE 0.9% 100 ML IV SCH ×3 (06:30→22:07)
--- NOTE | 2023-01-15 07:01 | P.PN ---
Date of Service: 01/15/23 Subjective: feels about the same as yesterday no new / worsening problems afebrile ROS: 10 point ROS as noted above, otherwise negative Physical Exam: GEN: Alert, oriented, NAD, Wei in place HEENT: Normal conjunctiva, sclera anicteric CV: Regular rate and rhythm, no edema Pulm: Nonlabored respirations on room air, clear bilaterally ABD: Soft, nontender, nondistended Integumentary: sacral / buttock ulcers with dressing in place Chronic Wei in place vitals reviewed Problem List: Stage IV pressure ulcer L buttock/ischium [id number] & Stage III sacral pressure ulcer, s/p I&D (01/11) Osteomyelitis Hx of ruptured aortic aneurysm resulting in [id number]; with chronic wei Hypertension COPD Stage IV pressure ulcer L buttock/ischium [id number] & Stage III sacral pressure ulcer, s/p I&D (01/11) Osteomyelitis Surgery consulted s/p I&D (01/11) deep pressure ulcer L buttock/ischium [id number] & sacral pressure ulcer probed down to bone Wei placed in [facility] 12/26 d/t chronic incontinence (~3 years); was straight cath'ing previously Wound culture growing ESBL E. coli per notes at [facility] Wound cultures :normal rectal balta ID consulted Continue merrem (01/09-) and Doxy (01/11-) x 6 weeks vanc (01/11) switched to Doxy (01/11-) d/t suspected allergy PICC line placed 01/14 Afebrile without leukocytosis PRN pain medication increased morphine Q6H (01/13) would be good candidate for LTAC History of ruptured aortic aneurysm resulting in [id number] Noted, at baseline Hypertension COPD Continue home medications Code: Full Dispo: Agreeable to LTAC 01/11 ss/cm consulted
[2023-01-15] MEDS: Mupirocin NASAL 2 APPL/1 GM TUBE NAS SCH ×2 (08:52→22:08)
[2023-01-15] MEDS: GABAPENTIN 300 MG CAP PO SCH ×3 (08:52→22:09)
[2023-01-15] MEDS: TIZANIDINE 4 MG TABLET PO SCH ×2 (08:52→22:08)
[2023-01-15] MEDS: LABETALOL HCL 100 MG TAB PO SCH ×2 (08:53→22:09)
[2023-01-15] MEDS: JUVEN PACKET PO SCH ×2 (08:53→22:10)
[2023-01-15] MEDS: COLLAGENASE 30 GM OINTMENT TOP SCH (08:54)
[2023-01-15] MEDS: DOCUSATE NA/SENNA CONC 1 TAB PO SCH (21:00)
[2023-01-15] MEDS: TERAZOSIN HCL 1 MG CAP PO SCH (22:09)
[2023-01-15] MEDS: ZOLPIDEM TARTRATE 5 MG TABLET PO PRN (22:09)
[2023-01-15] MEDS: SERTRALINE HCL 100 MG TAB PO SCH (22:09)
[2023-01-16] MEDS: MORPHINE 4 MG/ML SYR IV PRN ×4 (03:45→22:41)
[2023-01-16] MEDS: DOXYCYCLINE 100 MG in NA CHLORIDE 0.9% 100 ML IVPB SCH ×2 (03:59→16:03)
[2023-01-16 04:37] LABS: Absolute Lymphocytes (CBC) 1.8 K/uL (0.7-4.9); Lymphocytes % 27.5 % (15.3-44.8); MCV 85.1 fL (80-100); MPV 7.7 fL (7.6-11.3); RBC Red Blood Cell Count 3.64 M/uL (4.33-5.43)
[2023-01-16 05:02] LABS: Magnesium 1.8 mg/dL (1.6-2.4); Potassium 4.3 mEq/L (3.5-5.1)
[2023-01-16] MEDS: Meropenem 1,000 MG in NA CHLORIDE 0.9% 100 ML IV SCH ×3 (06:35→22:41)
[2023-01-16] MEDS: HYDROCODONE/APAP 10/325 TAB PO PRN ×3 (06:36→19:59)
[2023-01-16] MEDS ORDERED: Meropenem 1000 MG/VIAL IV ONE (06:41)
--- NOTE | 2023-01-16 06:55 | P.PN ---
Date of Service: 01/16/23 Subjective: doing okay pain remains ~same no new / worsening problems ROS: 10 point ROS as noted above, otherwise negative Physical Exam: GEN: Alert, oriented, NAD, Wei in place HEENT: Normal conjunctiva, sclera anicteric CV: Regular rate and rhythm, no edema Pulm: Nonlabored respirations on room air, clear bilaterally ABD: Soft, nontender, nondistended Integumentary: sacral / buttock ulcers with dressing in place Chronic Wei in place vitals reviewed Problem List: Stage IV pressure ulcer L buttock/ischium [id number] & Stage III sacral pressure ulcer, s/p I&D (01/11) Osteomyelitis Hx of ruptured aortic aneurysm resulting in [id number]; with chronic wei Hypertension COPD Stage IV pressure ulcer L buttock/ischium 7r1g2mg & Stage III sacral pressure ulcer, s/p I&D (01/11) Osteomyelitis Surgery consulted s/p I&D (01/11) deep pressure ulcer L buttock/ischium [id number] & sacral pressure ulcer probed down to bone Wei placed in [facility] 12/26 d/t chronic incontinence (~3 years); was straight cath'ing previously Wound culture growing ESBL E. coli per notes at [facility] Wound cultures :normal rectal balta ID consulted Continue merrem (01/09-) and Doxy (01/11-) x 6 weeks vanc (01/11) switched to Doxy (01/11-) d/t suspected allergy PICC line placed 01/14 Afebrile without leukocytosis PRN pain medication increased morphine Q6H (01/13) would be good candidate for LTAC History of ruptured aortic aneurysm resulting in [id number] Noted, at baseline Hypertension COPD Continue home medications Code: Full Dispo: LTAC - pending approval ss/cm consulted
[2023-01-16] MEDS: LABETALOL HCL 100 MG TAB PO SCH ×2 (08:58→20:55)
[2023-01-16] MEDS: GABAPENTIN 300 MG CAP PO SCH ×3 (08:58→20:55)
[2023-01-16] MEDS: TIZANIDINE 4 MG TABLET PO SCH ×2 (08:58→20:56)
[2023-01-16] MEDS: JUVEN PACKET PO SCH ×2 (08:59→21:00)
[2023-01-16] MEDS: Mupirocin NASAL 2 APPL/1 GM TUBE NAS SCH ×2 (08:59→20:54)
[2023-01-16] MEDS: COLLAGENASE 30 GM OINTMENT TOP SCH (08:59)
--- NOTE | 2023-01-16 09:38 | P.PN ---
Date of Service: 01/16/23 Chief Complaint: Sacral osteomyelitis/ulceration Subjective: Patient seen and examined at bedside. No new or worsening changes or complaints. Resting comfortably in bed at this time. Physical Examination Temp Pulse Resp BP Pulse Ox 97.6 F 78 18 124/59 L 95 01/16/23 07:35 01/16/23 07:35 01/16/23 07:35 01/16/23 07:35 01/16/23 07:35 General: Alert, In no apparent distress, Oriented x4 HEENT: Atraumatic, Normocephalic Neck: Supple, JVD not distended Respiratory: Clear to auscultation bilaterally, Normal air movement, breathing comfortably on room air. Cardiovascular: No edema, Normal S1 S2 Gastrointestinal: Normal bowel sounds, Soft and benign, Non-distended Integumentary: Pressure ulcer sacrum stage III, left ischium stage 4. Neurological: Abnormal sensation secondary to paraplegic Urinary: Garcia catheter Laboratory Data - Reviewed Microbiology Data - Reviewed Imagings Data: - Reviewed ([facility] documents) Medications List: Reviewed Assessment and Plan Problem List Paraplegia secondary to rupture aortic aneurysm in 2019 CKD Hypertension COPD Sacral Pressure Ulcer stage IV Osteomyelitis Pressure Ulcer Stage IV of Left Buttock/Ischium Pressure Ulcer Stage III of Sacrum Osteomyelitis - s/p debridement of necrotic tissue on 01/[address] Barrera, reported findings of infection extending to bone - Wound culture 01/11: "normal rectal balta" - Rectal balta is not considered normal inside wounds - [facility] documents showing wound cultures growing ESBL - On Meropenem (started 01/09) ane Doxycycline (started 01/11) Received dose of Vancomycin 01/11 with allergic reaction of rash on face, swelling of face and lips. Vancomycin was discontinued and he was started on Doxycycline. Left ischium pressure injury measuring 4.8 x 3.7 x 5.3 cm Sacral pressure injury measuring 1.5 x 0.3 x 1.7 cm No leukocytosis. Afebrile. Recommendations - Osteomyelitis: Continue antibiotic therapy for 6 weeks duration - Dr. George examined patient at bedside and recommending wound vac application to left ischium wound with intermittent suction of 125 mmHg. Apply petroleum gauze at base before applying wound vac. Change dressing Monday and . Patient would benefit from LTAC for long-term IV antibiotics for osteomyelitis along with wound care and debridements. Pending insurance approval for LTAC [facility]. Case management following. ID will continue follow patient as needed. Case discussed with Mor Alex
[2023-01-16] MEDS: TERAZOSIN HCL 1 MG CAP PO SCH (20:54)
[2023-01-16] MEDS: DOCUSATE NA/SENNA CONC 1 TAB PO SCH (20:55)
[2023-01-16] MEDS: SERTRALINE HCL 100 MG TAB PO SCH (20:56)
[2023-01-16] MEDS: ZOLPIDEM TARTRATE 5 MG TABLET PO PRN (22:41)
[2023-01-17] MEDS: DOXYCYCLINE 100 MG in NA CHLORIDE 0.9% 100 ML IVPB SCH ×2 (04:51→17:42)
[2023-01-17] MEDS: MORPHINE 4 MG/ML SYR IV PRN ×4 (05:24→23:35)
[2023-01-17] MEDS: Meropenem 1,000 MG in NA CHLORIDE 0.9% 100 ML IV SCH ×3 (06:15→23:00)
[2023-01-17] MEDS: JUVEN PACKET PO SCH ×2 (09:00→21:00)
[2023-01-17] MEDS: COLLAGENASE 30 GM OINTMENT TOP SCH (09:00)
[2023-01-17] MEDS: LABETALOL HCL 100 MG TAB PO SCH ×2 (09:05→21:34)
[2023-01-17] MEDS: GABAPENTIN 300 MG CAP PO SCH ×3 (09:05→21:34)
[2023-01-17] MEDS: HYDROCODONE/APAP 10/325 TAB PO PRN ×2 (09:05→21:33)
[2023-01-17] MEDS: TIZANIDINE 4 MG TABLET PO SCH ×2 (09:06→21:34)
[2023-01-17] MEDS: Mupirocin NASAL 2 APPL/1 GM TUBE NAS SCH ×2 (09:06→21:33)
--- NOTE | 2023-01-17 12:36 | P.PN ---
Date of Service: 01/17/23 Chief Complaint: Sacral osteomyelitis/ulceration Subjective: Patient is in bed. + headache. No acute events reported overnight. Pending LTAC approval. Physical Examination Temp Pulse Resp BP Pulse Ox 97.9 F 77 16 128/61 100 01/17/23 12:00 01/17/23 12:00 01/17/23 12:00 01/17/23 12:00 01/17/23 12:00 General: Alert, In no apparent distress, Oriented x4 HEENT: Atraumatic, Normocephalic Neck: Supple, JVD not distended Respiratory: Clear to auscultation bilaterally, Normal air movement, breathing comfortably on room air. Cardiovascular: No edema, Normal S1 S2 Gastrointestinal: Normal bowel sounds, Soft and benign, Non-distended Integumentary: Pressure ulcer sacrum stage III, left ischium stage 4. Dressing clean dry and intact. Neurological: Abnormal sensation secondary to paraplegic Laboratory Data - Reviewed Microbiology Data - Reviewed Imagings Data: - Reviewed ([facility] documents) Medications List: Reviewed Assessment and Plan Problem List Paraplegia secondary to rupture aortic aneurysm in 2019 CKD Hypertension COPD Sacral Pressure Ulcer stage IV Osteomyelitis Pressure Ulcer Stage IV of Left Buttock/Ischium Pressure Ulcer Stage III of Sacrum Osteomyelitis - s/p debridement of necrotic tissue on 01/[address] Barrera, reported findings of infection extending to bone - Wound culture 01/11: "normal rectal balta" - Rectal balta is not considered normal inside wounds - [facility] documents showing wound cultures growing ESBL - On Meropenem (started 01/09) ane Doxycycline (started 01/11) Received dose of Vancomycin 01/11 with allergic reaction of rash on face, swelling of face and lips. Vancomycin was discontinued and he was started on Doxycycline. Left ischium pressure injury measuring 4.8 x 3.7 x 5.3 cm Sacral pressure injury measuring 1.5 x 0.3 x 1.7 cm No leukocytosis. Afebrile. Recommendations - Osteomyelitis: Continue antibiotic therapy for [address] George examined patient at bedside and recommending wound vac application to left ischium wound with intermittent suction of 125 mmHg. Apply petroleum gauze at base before applying wound vac. Change dressing Monday and . Patient would benefit from LTAC for long-term IV antibiotics for osteomyelitis along with wound care and debridements. Pending insurance approval for LTAC [facility]. Case management following. ID will continue follow patient as needed. Case discussed with Mor Alex
--- NOTE | 2023-01-17 15:16 | P.PN ---
Subjective Date of Service: 01/17/23 Chief Complaint: Sacral osteomyelitis/ulceration Patient has no new complain. No recorded fever.. No issues overnight. He is complaining of intermittent pain in both wounds. Physical Examination - Vital Signs Temperature: 97.9 F Blood Pressure: 128/61 Pulse: 77 Respirations: 16 Pulse Ox (%): 100 Assessment And Plan - Plan Physical Exam: GEN: Alert, oriented, NAD, Wei in place HEENT: Normal conjunctiva, sclera anicteric CV: Regular rate and rhythm, no edema Pulm: Nonlabored respirations on room air, clear bilaterally ABD: Soft, nontender, nondistended Integumentary: sacral / buttock ulcers. Chronic Wei in place vitals reviewed Problem List: Stage IV pressure ulcer L buttock/ischium [id number] & Stage III sacral pressure ulcer, s/p I&D (01/11) Osteomyelitis Hx of ruptured aortic aneurysm resulting in [id number]; with chronic wei Hypertension COPD Stage IV pressure ulcer L buttock/ischium [id number] & Stage III sacral pressure ulcer, s/p I&D (01/11) Osteomyelitis Surgery consulted s/p I&D (01/11) deep pressure ulcer L buttock/ischium [id number] & sacral pressure ulcer probed down to bone Wei placed in [facility] 12/26 d/t chronic incontinence (~3 years); was str aight cath'ing previously Wound culture growing ESBL E. coli per notes at [facility] Wound cultures :normal rectal balta ID consulted Continue merrem (01/09-) and Doxy (01/11-) x 6 weeks vanc (01/11) switched to Doxy (01/11-) d/t suspected allergy PICC line placed 01/14 Afebrile without leukocytosis PRN pain medication Patient is being evaluated for LTAC placement. He needs aggressive wound care in addition to the IV antibiotics. History of ruptured aortic aneurysm resulting in [id number] Noted, at baseline Hypertension COPD Continue home medications Code: Full Dispo: LTAC - pending approval
[2023-01-17] MEDS: DOCUSATE NA/SENNA CONC 1 TAB PO SCH (21:34)
[2023-01-17] MEDS: TERAZOSIN HCL 1 MG CAP PO SCH (21:34)
[2023-01-17] MEDS: SERTRALINE HCL 100 MG TAB PO SCH (21:35)
[2023-01-17] MEDS: ZOLPIDEM TARTRATE 5 MG TABLET PO PRN (23:00)
[2023-01-18] MEDS: ACETAMINOPHEN 500 MG TAB PO PRN (01:20)
[2023-01-18] MEDS: DOXYCYCLINE 100 MG in NA CHLORIDE 0.9% 100 ML IVPB SCH (04:05)
[2023-01-18] MEDS: Meropenem 1,000 MG in NA CHLORIDE 0.9% 100 ML IV SCH ×2 (05:12→13:30)
[2023-01-18] MEDS: MORPHINE 4 MG/ML SYR IV PRN ×2 (05:13→13:30)
[2023-01-18] MEDS: JUVEN PACKET PO SCH (09:00)
[2023-01-18] MEDS: COLLAGENASE 30 GM OINTMENT TOP SCH (09:00)
[2023-01-18] MEDS: TIZANIDINE 4 MG TABLET PO SCH (09:32)
[2023-01-18] MEDS: HYDROCODONE/APAP 10/325 TAB PO PRN ×2 (09:32→15:22)
[2023-01-18] MEDS: GABAPENTIN 300 MG CAP PO SCH ×2 (09:32→13:30)
[2023-01-18] MEDS: LABETALOL HCL 100 MG TAB PO SCH (09:32)
[2023-01-18] MEDS: Mupirocin NASAL 2 APPL/1 GM TUBE NAS SCH (09:33)
--- NOTE | 2023-01-18 10:03 | P.PN ---
Date of Service: 01/18/23 Chief Complaint: Sacral osteomyelitis/ulceration Subjective: Patient in bed, breathing comfortably on room air. NAD. Denies any new or worsening complaints at this time. No acute events reported overnight. Physical Examination Temp Pulse Resp BP Pulse Ox 97.7 F 81 14 145/83 H 100 01/18/23 08:00 01/18/23 08:00 01/18/23 08:00 01/18/23 08:00 01/18/23 08:00 General: Alert, In no apparent distress, Oriented x4 HEENT: Atraumatic, Normocephalic Neck: Supple, JVD not distended Respiratory: Clear to auscultation bilaterally, Nonlabored respirations on room air. Cardiovascular: No edema, Normal S1 S2 Gastrointestinal: Normal bowel sounds, Soft and benign, Non-distended Integumentary: Pressure ulcer sacrum stage III, left ischium stage 4. Dressing clean dry and intact. Neurological: Abnormal sensation secondary to paraplegic Laboratory Data - Reviewed Microbiology Data - Reviewed Imagings Data: - Reviewed ([facility] documents) Medications List: Reviewed Assessment and Plan Problem List Paraplegia secondary to rupture aortic aneurysm in 2019 CKD Hypertension COPD Sacral Pressure Ulcer stage IV Osteomyelitis Pressure Ulcer Stage IV of Left Ischium Pressure Ulcer Stage III of Sacrum Osteomyelitis - s/p debridement of necrotic tissue on 01/[address] Barrera, reported findings of infection extending to bone - Wound culture 01/11: "normal rectal balta" - Rectal balta is not considered normal inside wounds - [facility] documents showing wound cultures growing ESBL - On Meropenem (started 01/09) ane Doxycycline (started 01/11) Left ischium pressure injury measuring 4.8 x 3.7 x 5.3 cm Sacral pressure injury measuring 1.5 x 0.3 x 1.7 cm Recommendations - Osteomyelitis: Continue antibiotic therapy for 6 weeks duration - Start on Daptomycin IV. - Discontinue Doxycycline. - Currently on day 10 of Merrem - Discontinue. - Left Ischium Pressure Ulcer Stage IV: Wound-vac application to left ischial wound with intermittent suction of 125 mmHg. Apply petroleum gauze at base before applying wound vac. Change dressing Monday and . ID will continue follow patient as needed. Case discussed with Mor Alex
[2023-01-18] MEDS ORDERED: Ringers Lactate 1,000 ML IV ONE (10:06)
[2023-01-18] MEDS ORDERED: LIDOCAINE 1% 20 ML MDV ONE (10:56)
[2023-01-18] MEDS ORDERED: COLLAGENASE 30 GM OINTMENT TOP ONE (10:57)
[2023-01-18] MEDS ORDERED: propofoL 200 MG/20 ML VIAL IV ONE (11:00)
[2023-01-18] MEDS ORDERED: LIDOCAINE 2% MPF 5 ML VIAL ONE (11:01)
[2023-01-18] MEDS ORDERED: FENTANYL CITR 100 MCG/2 ML ONE (11:01)
[2023-01-18] MEDS ORDERED: ONDANSETRON 4 MG/2 ML VIAL ONE (11:01)
[2023-01-18] MEDS ORDERED: MIDAZOLAM HCL 2 MG/2 ML INJ ONE (11:01)
[2023-01-18] MEDS ORDERED: EPHEDRINE SULF 50 MG/ML VIAL ONE (11:37)
--- NOTE | 2023-01-18 11:56 | P.BOP ---
Preoperative diagnosis: sacral (III) and L buttock/ischium (IV) infected necrotic pressure ulcers Postoperative diagnosis: same Primary procedure: 1. Excisional debridement pressure ulcer L buttock/ischium [id number] Secondary procedure: 2.Excisional debridement of sacral pressure ulcer [id number] Other procedure(s): 3. Pulse lavage of those (Both) Estimated blood loss: <10cc Findings: see dicta Anesthesia: General Complications: None Drain(s): Other (wet to dry packing) Transferred to: Recovery Room Condition: Good
[2023-01-18] MEDS: MORPHINE 4 MG/ML SYR ONE ×2 (12:14→12:21)
[2023-01-18] MEDS: HYDROMORPHONE HCL 1 MG/ML INJ ONE ×2 (12:29→12:35)
[2023-01-18 12:42] VITALS: O2SAT 100
--- NOTE | 2023-01-18 14:11 | P.DS ---
Admission Date: 01/10/23 Discharge Date: 01/18/23 Disposition: [facility] Discharge Condition: FAIR Reason for Admission: Sacral osteomyelitis/ulceration Brief History of Present Illness: 37-year-old male with history of paraplegia secondary to ruptured abdominal aortic aneurysm 2019, CKD, hypertension, COPD who was admitted to [facility] for sacral decubitus ulceration, he was found to have suspected sacral osteomyelitis. Transfer was initiated to our facility for higher level of care. He has admitted here with plans for debridement and ID consult. He had been on meropenem at [facility], he was admitted on 01/09/2023. Hospital Course: Diagnosis Stage IV pressure ulcer L buttock/ischium [id number] & Stage III sacral pressure ulcer, s/p I&D (01/11) Osteomyelitis Hx of ruptured aortic aneurysm resulting in [id number]; with chronic wei Hypertension COPD Stage IV pressure ulcer L buttock/ischium [id number] & Stage III sacral pressure ulcer, s/p I&D (01/11) Osteomyelitis Surgery consulted s/p I&D (01/11) and 01/18. Deep pressure ulcer L buttock/ischium [id number] & sacral pressure ulcer probed down to bone Wei placed in [facility] on 12/26 due to chronic incontinence (~3 years); he was straight cath'ing previously Wound culture growing ESBL E. coli per notes at [facility] Wound cultures :normal rectal balta ID consulted Patient treated with merrem (01/09-). vanc (01/11) switched to Doxy (01/11-) d/t suspected allergy and later switched to daptomycin PICC line placed 01/14 Patient plan for 6 weeks of IV antibiotics. Afebrile without leukocytosis PRN pain medication He has been accepted to LTAC. Vitals are stable for transfer. History of ruptured aortic aneurysm resulting in [id number] Noted, at baseline Hypertension COPD Continued home medications Vital Signs/Physical Exam: Temp Pulse Resp BP Pulse Ox 97.3 F 73 14 121/53 L 100 01/18/23 12:42 01/18/23 12:37 01/18/23 12:37 01/18/23 12:37 01/18/23 08:00 General: Alert, In no apparent distress, Oriented x3 HEENT: Mucous membr. moist/pink Neck: JVD not distended Respiratory: Clear to auscultation bilaterally, Normal air movement Cardiovascular: No edema, Regular rate/rhythm, Normal S1 S2 Gastrointestinal: Soft and benign, Non-distended Musculoskeletal: No swelling Neurological: Other (Paraplegia) Laboratory Data at Discharge: WBC 6.70 thou/uL (4.3-10.9) 01/16/23 03:58 Hgb 10.3 g/dL (13.6-17.9) L 01/16/23 03:58 Hct 31.0 % (39.6-49.0) L 01/16/23 03:58 Plt Count 336 thou/uL (152-406) 01/16/23 03:58 Sodium 134 mEq/L (136-145) L 01/16/23 03:58 Potassium 4.3 mEq/L (3.5-5.1) 01/16/23 03:58 BUN 35 mg/dL (7-18) H 01/16/23 03:58 Creatinine 0.82 mg/dL (0.70-1.30) 01/16/23 03:58 Glucose 107 mg/dL (74-106) H 01/16/23 03:58 Magnesium 1.8 mg/dL (1.6-2.4) 01/16/23 03:58 Home Medications: Acetaminophen [8 Hour Acetaminophen] 650 mg PO Q6H PRN 01/11/23 Aspirin 81 mg PO DAILY 01/11/23 Calcium Carbonate [Tums Regular*] 500 mg PO TID 01/11/23 Collagenase [Santyl Ointment*] 1 appl TOP DAILY 01/11/23 Docusate/Senna [Senokot-S*] 2 tab PO BEDTIME 01/11/23 Gabapentin 300 mg PO TID 01/11/23 Hydrocodone Bit/Acetaminophen [[place] 10-325 Tablet] 1 each PO Q6H PRN 01/11/23 Ibuprofen 400 mg PO Q8H PRN 01/11/23 Lactulose 10 gm PO Q8H PRN 01/11/23 Melatonin 10 mg PO BEDTIME 01/11/23 Mineral Oil/Petrolatum,White [Artificial Eye Lub 15-83% Oint] 1 appl EACH EYE TID 01/11/23 Multivitamin [Daily Hardy] 1 tab PO DAILY 01/11/23 Oxybutynin Chloride [Oxybutynin Chloride ER] 10 mg PO DAILY 01/11/23 Polyethylene Glycol 3350 [Miralax] 17 gm PO DAILY 01/11/23 Sertraline [Zoloft*] 100 mg PO BEDTIME 01/11/23 Simethicone 80 mg PO TID PRN 01/11/23 Terazosin HCl 1 mg PO BEDTIME 01/11/23 Tizanidine HCl 2 mg PO Q8H 01/11/23 Zolpidem Tartrate [Ambien] 5 mg PO BEDTIME 01/11/23 Labetalol HCl 4 tab PO Q12H 01/12/23 Lisinopril [Zestril] 1 tab PO DAILY 01/12/23 Martin [Martin*] 1 pkt PO BID 01/18/23 Time spent managing pt's care (in minutes): 39
[2023-01-18] MEDS ORDERED: DAPTOmycin 700 MG in NA CHLORIDE 0.9% 100 ML IVPB SCH (15:00)
[2023-01-18 16:51] VITALS: BP 101/48; TEMP 97
--- NOTE | 2023-01-18 17:33 | OP ---
Date of Procedure: 01/18/2023 Surgeon: Christopher Barrera MD Preoperative Diagnoses: Sacral stage III and left buttock/ischium stage IV infected necrotic pressur e ulcers. Postoperative Diagnoses: Sacral stage III and left buttock/ischium stage IV infected necrotic pressu re ulcers. Procedures: 1.Excisional debridement of pressure ulcer, left buttock/ischium, 7 x 4 x 3 cm. 2.Excisional debridement of sacral pressure ulcer, 3 x 3 x 2 cm. 3.Pulse lavage. Estimated Blood Loss: Less than 10 mL. Anesthesia: General plus local. Findings: We have an improvement. Last time, when we took him about a week ago, we have foul-smelli ng purulent discharge coming from that area. Right now, we did not see the purulent discharge. We s till unfortunately see how deep this goes down to the bone, but at least we seen at the beginning of the granulation tissue in that area. There is some devitalized tissue that was removed today, but un derneath shows once again signs of life and granulation tissue. Complications: None. Indication: This is the case of a 37-year-old patient with history of paraplegia with infected stage III and IV necrotic ulcer over the sacrum and also between the left buttock and ischium. Those area s being taken care of. A week ago, we took him to surgery, did a lot of debridement. We scheduled h im to be few days later and that is today for further debridement and further cleaning and we are gla d to say that is improving. The benefits, alternatives, and risks explained the same to him as befor e including, but not limited to infection, bleeding, damage to adjacent structures, anesthesia compli cation, nonhealing wound, ID, and even . He also understands this may not relieve any symptoms. He might need more than one surgical intervention. He understood, signed a consent. He understand s also the importance of dressing changes, offloading. Procedure In Detail: The patient was brought to the operating room, placed in supine position. Anes thesia was done without complication. The patient was placed in lateral decubitus position with prop er protection. The sacrum and the left ischium were prepped and draped in the usual sterile fashion. After time-out, we proceeded to use an 11 blade and do debridement of the necrotic tissue present, although less than before. After we did debridement down to subcutaneous tissue, we then used pulse lavage to irrigate both sides, the left buttock, ischium and also the sacrum. Hemostasis was obtaine d with pressure. Local anesthesia was applied. The patient tolerated the procedure well. Area was packed with wet-to-dry dressing. The patient was sent to recovery in stable condition. CONY/MARIEL Voice ID: [id number] Report ID: [id number]
== END 2023-01-18 17:15 | DRG 463 ==
LOC: 2ND 19:22
PROVIDERS: ADMIT Hospitalist; ATTEND Internal Medicine
PROC: 02HV33Z Insertion of Infusion Device into Superior Vena Cava, Percutaneous Approach (ICD-10-PCS; 2023-01-14)
PROC: 0JB90ZZ Excision of Buttock Subcutaneous Tissue and Fascia, Open Approach (ICD-10-PCS; 2023-01-18)
PROC: 0JD70ZZ Extraction of Back Subcutaneous Tissue and Fascia, Open Approach (ICD-10-PCS; 2023-01-18)
PROC: 0JD90ZZ Extraction of Buttock Subcutaneous Tissue and Fascia, Open Approach (ICD-10-PCS; 2023-01-18)
PROC: 0JB70ZZ Excision of Back Subcutaneous Tissue and Fascia, Open Approach (ICD-10-PCS; principal; 2023-01-18 10:30)
DX: M86.8X8 Other osteomyelitis, other site (principal); L89.153 Pressure ulcer of sacral region, stage 3; L89.324 Pressure ulcer of left buttock, stage 4; G82.20 Paraplegia, unspecified; Z16.12 Extended spectrum beta lactamase (ESBL) resistance; I96 Gangrene, not elsewhere classified; I12.9 Hypertensive chronic kidney disease with stage 1 through stage 4 chronic kidney disease, or unspecified chronic kidney disease; N18.9 Chronic kidney disease, unspecified; J44.9 Chronic obstructive pulmonary disease, unspecified; Z90.49 Acquired absence of other specified parts of digestive tract; B96.20 Unspecified Escherichia coli [E. coli] as the cause of diseases classified elsewhere; Z79.82 Long term (current) use of aspirin; Z91.013 Allergy to seafood; Z91.048 Other nonmedicinal substance allergy status; Z79.899 Other long term (current) drug therapy
CPT/HCPCS: 36415; 36569; 71045; 80048; 80202; 82550; 83735; 85025; 87070; 87075; 87205; 88304; 94010; J0878; J1170; J1200; J2001; J2175; J2185; J2250; J2270; J2405; J2704; J2930; J3010; J3590; J7030; J7040; J7120